=== PATIENT | female | born 1985 | race Caucasian/White ===

== ENCOUNTER 2018-03-20 09:57 | Emergency (ER) | payer SELFPAY ==
--- NOTE | 2018-03-20 09:57 | DT_ITS ---
This patient was seen during an EMR downtime March 13, 2018 - March 20, 2018. This patient may have a combination of paper and electronic documentation or all paper documentation. All documentation is viewable within the e-chart portion of [employer] for each patient visit.
[2018-03-20 09:58] VITALS: BP 151/78; PULSE 127; RESP 20; TEMP 37.2; O2SAT 96; BMI 47.0
--- NOTE | 2018-03-20 10:19 | CT_ITS ---
STUDY: CT ABDOMEN AND PELVIS WITH CONTRAST REASON FOR EXAM: Female, 32 years old. Abdominal pain. RADIATION DOSAGE (If Supplied By Facility): CTDIvol = ( 26.70 ) mGy, DLP = ( 1954.89 ) mGycm TECHNIQUE: Transaxial images were obtained from the dome of the diaphragm to the symphysis pubis without oral contrast. 100mL ml of Isovue 300 contrast was administered. Sagittal and coronal images were reconstructed. Individualized dose optimization techniques were used for this CT. COMPARISON: CT abdomen October 30, 2017; CT abdomen pelvis October 19, 2017. FINDINGS: Stable elevation of the right diaphragm. The visualized lung bases are unremarkable. The visualized portions of the heart are within normal limits. There is hepatomegaly, the right lobe measuring 25 cm in height. Liver density is difficult to accurately evaluate after IV contrast injection. The patent portal vein diameter is 17.5 mm.. There is non-visualization of the gallbladder, which may be secondary to either contraction or a prior cholecystectomy. The diameter of the common bile duct 7.5 mm. There is mild splenomegaly, measuring 15.2 x 15.3 x 7.95 cm. Normal pancreas. Normal bilateral adrenal glands. 13 mm rounded low-density at the lateral midpole right kidney consistent with a cortical cyst. A mildly exophytic 11 mm cortical cyst is seen at the lateral lower pole of the left kidney. No hydronephrosis. Normal visualized stomach. There is a suture line around the second portion of the duodenum, an additional suture lines are seen along small bowel loops in the anterior midabdomen and left lower quadrant. No suspicious small bowel dilatation. Normal colon. There is non-visualization of the appendix. Normal abdominal aorta. Normal inferior vena cava. There is a stable 10 x 6 x 1.75 cm left infrarenal retroperitoneal lymph node. No other demonstrated adenopathy, suggesting this is reactive. Normal urinary bladder. Normal size anteverted uterus, tilted to the left of midline. Metal clips adjacent to the bilateral corneal consistent with prior tubal ligation. The bilateral ovaries are unremarkable. There is a healed midline surgical scar of the anterior abdominal wall. There is a small fat-containing supraumbilical hernia to the left side of the midline containing fat. The ill-defined fluid collection seen previously in the subcutaneous tissues in the midline anterior abdominal wall has resolved with some residual stranding. There are stable mild multilevel degenerative changes of the visualized spine. CT/Abdomen/Pelvis W IV Cont ONLY IMPRESSION: 1. Interval clearing of fluid collection in the subcutaneous tissues of the anterior abdominal wall with some residual stranding. There is a healed midline surgical scar and a small, fat-containing supraumbilical hernia to left of midline. 2. Suture lines are seen around the second portion of the duodenum as well as along unremarkable small bowel loops in the anterior midabdomen and left lower quadrant. No sign of bowel obstruction. The appendix is not visualized. 3. The gallbladder is not visualized, and presumed to be surgically absent. 4. Prior bilateral tubal ligation again noted. 5. Hepatosplenomegaly. 6. Stable bilateral renal cortical cysts. No hydronephrosis. Electronically Signed: Gerardo White MD at 12:36 EDT , Service support ,
--- NOTE | 2018-03-20 10:22 | ED.DCSUM_ITS ---
- ER Visit Summary Date of Service: 03/20/18 Chief Complaint: Abdominal pain History of Present Illness: The patient is a 32 F with history of ventral hernia status post repair and revision surgeries presents for severe abdominal pain. Patient states she was moving homes last week and since then has had dull abdominal pain in the region of her repair. Overnight the pain became very sharp. Patient is not having any bowel movements or passing flatus. She has associated nausea and decreased appetite. Denies fever, urinary symptoms or other complaints. Physical Examination: Vital signs: afebrile, mildly hypertensive and significant tachycardia, no hypoxia on room air General: well nourished, well developed, sitting in bed and appears uncomfortable, tearful Skin: warm, dry, no rash, no pallor HEENT: normocephalic and atraumatic; PERRL, EOMI, moist mucous membranes Cardiovascular: Tachycardic rate and regular rhythm without murmurs, no peripheral edema, 2+ pulses all distal extremities Respiratory: No increased work of breathing, lungs are clear to auscultation bilaterally, no rales, rhonchi or wheezing Abdominal: Abdomen is soft, diffusely tender to light palpation with quiet bowel sounds, no guarding or rebound, no masses, exam limited secondary to body habitus MSK: Moves all extremities, no deformities, normal strength Neuro: Awake and alert, oriented ?4. No facial droop, sensation and motor function intact and symmetric Test Results: Abnormal Lab Results 03/20/18 03/20/18 03/20/18 10:35 10:35 10:35 WBC 6.4 RBC 4.64 Hgb 13.8 Hct 41.7 MCV 89.9 MCH 29.7 MCHC 33.1 RDW 12.8 RDW Differential 41.5 Plt Count 230 MPV 8.7 Immature Gran % (Auto) 0.300 Neut % (Auto) 66.2 Lymph % (Auto) 25.9 [place] % (Auto) 5.5 Eos % (Auto) 1.9 Baso % (Auto) 0.2 Absolute Neuts (auto) 4.3 Absolute Lymphs (auto) 1.66 Total Counted Not Reportable Sodium 140 Potassium 3.2 L Chloride 104 Carbon Dioxide 24.0 Anion Gap 12 BUN 8 Creatinine 0.58 Est GFR (MDRD) Af Amer 155 Est GFR (MDRD) Non-Af 128 BUN/Creatinine Ratio 13.9 Glucose 107 H Lactic Acid 3.9 H Calcium 8.6 Total Bilirubin 0.20 AST 18 ALT 26 Alkaline Phosphatase 54 Total Protein 7.0 Albumin 3.5 Globulin 3.5 Albumin/Globulin Ratio 1.0 Lipase 81 Serum , Qual 03/20/18 03/20/18 10:35 13:40 WBC RBC Hgb Hct MCV MCH MCHC RDW RDW Differential Plt Count MPV Immature Gran % (Auto) Neut % (Auto) Lymph % (Auto) [place] % (Auto) Eos % (Auto) Baso % (Auto) Absolute Neuts (auto) Absolute Lymphs (auto) Total Counted Sodium Potassium Chloride Carbon Dioxide Anion Gap BUN Creatinine Est GFR (MDRD) Af Amer Est GFR (MDRD) Non-Af BUN/Creatinine Ratio Glucose Lactic Acid 2.5 H Calcium Total Bilirubin AST ALT Alkaline Phosphatase Total Protein Albumin Globulin Albumin/Globulin Ratio Lipase Serum , Qual NEGATIVE Clinical Impression(s) from Imaging Studies Abdomen/Pelvis CT 03/20/18 10:19 IMPRESSION: 1. Interval clearing of fluid collection in the subcutaneous tissues of the anterior abdominal wall with some residual stranding. There is a healed midline surgical scar and a small, fat-containing supraumbilical hernia to left of midline. 2. Suture lines are seen around the second portion of the duodenum as well as along unremarkable small bowel loops in the anterior midabdomen and left lower quadrant. No sign of bowel obstruction. The appendix is not visualized. 3. The gallbladder is not visualized, and presumed to be surgically absent. 4. Prior bilateral tubal ligation again noted. 5. Hepatosplenomegaly. 6. Stable bilateral renal cortical cysts. No hydronephrosis. Electronically Signed: Gerardo White MD at 12:36 EDT , Service support , Emergency Department Course and Treatment: Patient received Phenergan and morphine for her abdominal complaints. She was given IV fluids. Labs were performed and were remarkable only for an elevated lactate 3.9. Patient was afebrile, and did not have any leukocytosis. CT of the abdomen and pelvis was performed to evaluate for bowel obstruction or recurrent hernia, and it showed no acute process to explain patient's severe symptoms. She received additional Reglan and Dilaudid, with minimal control in her pain. Patient was then given IV Haldol. After hydration, lactate was repeated and was 2.5. While workup was in progress prior to the repeat lactate results returning, patient stated that she needed to leave and was advised she would have to sign out AMA. She left prior to me being able to discuss the risks of leaving and prior to signing the form. Treatment Plan: [] Disposition: [] Impression: Abdominal pain, history of ventral hernia, left AMA This note was generated with [employer] dictation software. It may contain incorrect words, spelling, and punctuation that were not noted in review of the chart prior to signing ED Disposition - Plan for ED Patient: Disposition: Home or Assisted Living Chief Complaint: Abd Pain Referrals: Care Physician,No Primary [Primary Care Provider] -
[2018-03-20] MEDS: proMETHazine 25 MG/ML Syringe 12.5 MG IV (10:38)
[2018-03-20] MEDS: 0.9% Normal Saline 1,000 ML 1000 ML IV (10:38)
[2018-03-20] MEDS: Morphine 4 MG/ML Syringe IV (10:38)
[2018-03-20 10:48] LABS: Absolute Lymphocyte Count 1.66 X10^3/ul (0.83-4.51); Absolute Neutrophil Count 4.3 X10^3/uL (2.0-7.7); Basophil# 0.01 X10^3/uL; Basophil% 0.2 % (0-1); Eosinophil# 0.12 X10^3/uL; Eosinophils% 1.9 % (0-5); Hematocrit 41.7 % (37-47); Hemoglobin 13.8 g/dl (12.0-15.0); Lymphocyte # 1.66 X10^3/ul (4.0); Lymphocyte % 25.9 % (19-41); Mean Corp Hgb Conc 33.1 g/gl (32-36); Mean Corpuscular Hgb 29.7 pg (27.0-32.0); Mean Corpuscular Volume 89.9 fL (81-99); Mean Platelet Vol. 8.7 fl (6.2-12.0); Monocyte# 0.35 X10^3/uL; Monocyte% 5.5 % (0-10); Neutrophil # 4.26 X10^3/uL (2.7-7.7); Neutrophil % 66.2 % (47-70); POSITIVE COUNT NO; POSITIVE DIFFERENTIAL NO; POSITIVE MORPHOLOGY NO; Platelet Count 230 K/mm3 (150-450); RBC Distribution Width CV 12.8 % (11.6-14.6); RBC Distribution Width SD 41.5 fl (35.1-43.9); Red Blood Count 4.64 M/mm3 (4.2-5.4); White Blood Count 6.4 K/mm3 (4.4-11.0)
[2018-03-20 11:06] LABS: AST(SGOT) 18 U/L (15-37); Alanine Aminotransfer ALT/SGPT 26 U/L (13-56); Albumin, Serum 3.5 g/dL (3.2-5.0); Alkaline Phosphatase 54 U/L (45-117); Anion Gap 12 (5-15); BUN 8 mg/dL (7-18); BUN/Creat Ratio 13.9 RATIO (10-20); Calcium,Total 8.6 mg/dL (8.5-10.1); Chloride 104 mmol/L (98-107); Creatinine, Serum 0.58 mg/dL (0.55-1.02); EST Glomerular Filtration Rate 128 mL/min (>60); Est Glom Filt Rate - Afr Amer 155 mL/min (>60); Globulin 3.5 g/dL (2.2-4.2); Glucose 107 mg/dL (74-106); Lipase 81 U/L (73-393); Potassium 3.2 mmol/L (3.5-5.1); Sodium Level 140 mmol/L (136-145)
[2018-03-20 11:20] LABS: Pregnancy, Serum, hCG Quali. NEGATIVE Negative (0-9 Nonpreg)
[2018-03-20 11:27] LABS: Lactic Acid 3.9 mmol/L (0.4-2.0)
[2018-03-20] MEDS: HYDROmorphone 1 MG/ML Syringe IV (11:30)
[2018-03-20] MEDS: Metoclopramide 10 MG/2 ML Vial IV (11:30)
[2018-03-20 12:36] VITALS: BP 132/80; PULSE 90; RESP 18; O2SAT 97
[2018-03-20] MEDS: Piperacil/Tazobactam 3.375 GM/50 ML ML IV (12:36)
[2018-03-20] MEDS: 0.9% Normal Saline 1,000 ML 999 ML IV (13:40)
[2018-03-20] MEDS: Haloperidol Lactate 5 MG/ML Vial IV (13:40)
[2018-03-20 14:26] LABS: Lactic Acid 2.5 mmol/L (0.4-2.0)
[2018-03-20 14:43] LABS: Reflex Lactate? Y
[2018-03-20 17:50] LABS: Reflex Lactate? Y
== END 2018-03-20 14:24 | disposition home or self-care (01) ==
LOC: ED 10:54
PROVIDERS: Emergency Provider Emergency Medicine
DX: R10.9 Unspecified abdominal pain (principal); Z98.51 Tubal ligation status
CPT/HCPCS: 36415; 74177; 80053; 83605; 83690; 84703; 85025; 96361; 96365; 96374; 96375; 99283; J7030; Q9967; A4216

== ENCOUNTER 2018-06-22 11:09 | Emergency (ER) | payer MEDICAID, SELFPAY ==
[2018-06-22 11:09] VITALS: BP 141/71; PULSE 89; RESP 16; TEMP 36.8; O2SAT 96; BMI 50.1
[2018-06-22 11:22] VITALS: BP 126/67; PULSE 80; RESP 16; O2SAT 97
--- NOTE | 2018-06-22 11:34 | RAD_ITS ---
STUDY: X-RAY CHEST REASON FOR EXAM: Female, 32 years old. Syncope. TECHNIQUE: PA and lateral views of the chest. COMPARISON: Comparison is made with prior study dated September 15, 2014. FINDINGS: EKG electrodes are seen. Scattered calcified granulomas. No acute abnormality is seen. There is no demonstrated pleural abnormality. Normal size heart. Normal mediastinum and denisse. Normal visualized pulmonary arteries. Normal visualized aortic arch and descending thoracic aorta. Normal visualized thoracic spine. Normal visualized ribs, clavicles, and shoulders. There is no demonstrated abnormality of the visualized soft tissue structures of the upper abdomen. RAD/Chest PA and Lateral IMPRESSION: Normal x-ray examination of the chest. Electronically Signed: Sacha Roca MD at 12:56 EDT Tel [phone], Service support ,
--- NOTE | 2018-06-22 11:34 | EKG12_ITS ---
Test Reason : SYNCOPE Blood Pressure : / mmHG Vent. Rate : 079 BPM Atrial Rate : 079 BPM P-R Int : 150 ms QRS Dur : 086 ms QT Int : 378 ms P-R-T Axes : 253 065 031 degrees QTc Int : 433 ms Unusual P axis, possible ectopic atrial rhythm Abnormal ECG Confirmed by PATRICK DODD, JASKARAN ([id number]), subeditor KEZIA BARKER ([id number]) on 06/26/2018 3:02:02 PM Referred By: HAN Confirmed By:JASKARAN NGUYEN MD
--- NOTE | 2018-06-22 11:46 | ED.DCSUM_ITS ---
- ER Visit Summary Date of Service: 06/22/18 Chief Complaint: Syncope History of Present Illness: The patient is a 32 F who presents with a syncopal episode that occurred today. Patient states she was in the shower when she felt her heart racing and became dizzy. Patient states she passed out for approximately 3-4 minutes. Patient states that before she passed out she also felt some pain in her right lower thoracic area. Patient states she has been having some pain in her left lower first molar area for the past few days as well. Patient also is being treated for bilateral otitis externa. Patient states her right ear is still has some pain but her left ear has cleared up. Patient admits to some nausea and upper abdominal pain. Patient had a recent ventral herniorrhaphy approximately 2 weeks ago. Patient also complains of a headache. Physical Examination: Vital signs are stable. Patient is afebrile. Patient is in no acute distress. Oral mucosa is pink and moist. Tympanic membranes are clear bilaterally. The right external auditory canal is mildly edematous. There is some tenderness with manipulation of the right external ear. Oropharynx is clear. There is some mild tenderness over the left lower first molar. There is no gingival edema or abscess noted. Neck is supple. Trachea is midline. There is some tender anterior cervical lymphadenopathy. Heart was regular rate and rhythm. Lungs are clear and equal bilaterally. Abdomen is soft. There is some upper abdominal tenderness. There is no rebound or guarding noted. The herniorrhaphy incision is healing well. There is no erythema or signs of infection. Cranial nerves II through XII are intact. There are no focal motor or sensory deficits noted. The remaining physical exam is within normal limits. Test Results: EKG showed ectopic atrial rhythm with a rate of 79. There are no acute ST or T-wave changes. There are no other acute changes noted. CBC showed a mild leukocytosis of 11.7. Basic metabolic profile, troponin, and urinalysis were all within normal limits. Chest x-ray does not show any acute cardiopulmonary process. Orthostatic vital signs were normal. Emergency Department Course and Treatment: Patient was given IV fluids here. Patient was instructed to go home and rest. Patient was instructed to drink plenty of fluids. She was given a prescription for Pen-Vee K for possible dental infection. Patient was instructed to follow-up with her primary care physician in 7-10 days. Patient understood and was agreeable with the plan. All questions were answered. Disposition: Discharged home Impression: Syncope This note was generated with [employer] dictation software. It may contain incorrect words, spelling, and punctuation that were not noted in review of the chart prior to signing ED Disposition - Plan for ED Patient: Disposition: Home or Assisted Living Chief Complaint: Syncope Diagnosis: Syncope Instructions: ED Fainting Unkn Cause Prescriptions: Penicillin V Potassium 500 mg PO 4X/DAY #40 tab Referrals: Care Physician,No Primary [Primary Care Provider] -
[2018-06-22] MEDS: 0.9% Normal Saline 1,000 ML 1000 ML IV (12:04)
[2018-06-22 12:05] VITALS: BP 125/70; BP 140/74; PULSE 82; PULSE 84
[2018-06-22 12:18] LABS: Internal QC Validated? YES +Cl - CLEAR BKGD; Pregnancy, Urine Negative Negative
[2018-06-22 12:24] LABS: Absolute Lymphocyte Count 2.16 X10^3/ul (0.83-4.51); Absolute Neutrophil Count 8.3 X10^3/uL (2.0-7.7); Basophil# 0.03 X10^3/uL; Basophil% 0.3 % (0-1); Eosinophil# 0.44 X10^3/uL; Eosinophils% 3.8 % (0-5); Hematocrit 42.2 % (37-47); Hemoglobin 13.8 g/dl (12.0-15.0); Lymphocyte # 2.16 X10^3/ul (4.0); Lymphocyte % 18.4 % (19-41); Mean Corp Hgb Conc 32.7 g/gl (32-36); Mean Corpuscular Hgb 30.1 pg (27.0-32.0); Mean Corpuscular Volume 92.1 fL (81-99); Mean Platelet Vol. 9.4 fl (6.2-12.0); Monocyte# 0.62 X10^3/uL; Monocyte% 5.3 % (0-10); Neutrophil # 8.33 X10^3/uL (2.7-7.7); Neutrophil % 71.1 % (47-70); Platelet Count 278 K/mm3 (150-450); RBC Distribution Width CV 13.1 % (11.6-14.6); RBC Distribution Width SD 43.7 fl (35.1-43.9); Red Blood Count 4.58 M/mm3 (4.2-5.4); White Blood Count 11.7 K/mm3 (4.4-11.0)
[2018-06-22 12:26] LABS: Color, Urine Yellow (Yellow); Glucose, Dipstick Normal (Normal); Ketone-Dipstick Negative (Negative); Leukocyte Esterase-Dipstick 25 /ul (Negative); Nitrite-Dipstick Negative (Negative); Occult Blood-Urine 250 /ul (Negative); Protein-Dipstick 30 mg/dl (Negative); Specific Gravity, Urine 1.025 (1.002-1.030); Urine Bilirubin Dipstick Negative (Negative); Urine Clarity Sl. Cloudy (Clear); Urine Urobilinogen Normal (Normal)
[2018-06-22 12:31] LABS: POSITIVE COUNT NO; POSITIVE DIFFERENTIAL NO; POSITIVE MORPHOLOGY NO
[2018-06-22 12:32] LABS: ALB/GLOB Ratio 0.9 RATIO (0.9-2.4); AST(SGOT) 11 U/L (15-37); Alanine Aminotransfer ALT/SGPT 25 U/L (13-56); Albumin, Serum 3.4 g/dL (3.2-5.0); Alkaline Phosphatase 63 U/L (45-117); Anion Gap 9 (5-15); BUN 12 mg/dL (7-18); BUN/Creat Ratio 19.4 RATIO (10-20); Calcium,Total 8.7 mg/dL (8.5-10.1); Chloride 109 mmol/L (98-107); Creatinine, Serum 0.62 mg/dL (0.55-1.02); EST Glomerular Filtration Rate 118 mL/min (>60); Est Glom Filt Rate - Afr Amer 143 mL/min (>60); Estimated Creatinine Clearance 117.22 ml/min; Globulin 3.6 g/dL (2.2-4.2); Glucose 95 mg/dL (74-106); Lipase 113 U/L (73-393); Potassium 4.3 mmol/L (3.5-5.1); Sodium Level 141 mmol/L (136-145)
[2018-06-22 12:50] LABS: Bacteria RARE /hpf (None Seen); Red Blood Cells-Urine 0-5 SEEN /hpf (0-5); Squamous Epithelial Cells - UA 5-10 SEEN /hpf (5-10); White Blood Cells 5-10 SEEN /hpf (0-5)
[2018-06-22 12:51] LABS: Mucous, Urine 1+ /hpf (<or=2+)
[2018-06-22 13:22] VITALS: BP 153/108; PULSE 80; RESP 16; O2SAT 99
[2018-06-22 13:42] VITALS: BP 134/79; PULSE 75; RESP 14; O2SAT 99
== END 2018-06-22 13:48 | disposition home or self-care (01) ==
PROVIDERS: Emergency Provider Emergency Medicine
DX: R55 Syncope and collapse (principal); R10.10 Upper abdominal pain, unspecified; K08.89 Other specified disorders of teeth and supporting structures; M54.9 Dorsalgia, unspecified; H60.93 Unspecified otitis externa, bilateral; Z90.49 Acquired absence of other specified parts of digestive tract; Z87.891 Personal history of nicotine dependence
CPT/HCPCS: 71046; 80053; 81001; 81025; 83690; 85025; 93005; 96360; 99285; J7030

== ENCOUNTER 2018-07-06 14:47 | Emergency (ER) | payer MEDICAID, SELFPAY ==
[2018-07-06 14:48] VITALS: BP 190/107; PULSE 132; RESP 20; TEMP 36.9; O2SAT 93; BMI 51.3
--- NOTE | 2018-07-06 15:13 | CT_ITS ---
STUDY: CT ABDOMEN AND PELVIS WITH CONTRAST REASON FOR EXAM: Female, 33 years old. Abdominal pain. History of GERD RADIATION DOSAGE (If Supplied By Facility): CTDIvol = ( 17.07 ) mGy, DLP = ( 1388.35 ) mGycm TECHNIQUE: Transaxial images were obtained from the dome of the diaphragm to the symphysis pubis without oral contrast. 100 ml of Isovue 300 contrast was administered. Sagittal and coronal images were reconstructed. Individualized dose optimization techniques were used for this CT. COMPARISON: None. FINDINGS: The visualized lung bases are unremarkable. The visualized portions of the heart are within normal limits. Normal liver. There are surgical clips in the gallbladder fossa consistent with a prior cholecystectomy. Normal spleen. Normal pancreas. Normal bilateral adrenal glands. Small midpole renal cyst measuring 1.2 cm. Otherwise, normal right kidney. Normal left kidney. Normal visualized stomach. Chain sutures noted in the mid abdominal region, likely within loops of small bowel. Otherwise, small bowel is within normal limits. Normal colon. There is non-visualization of the appendix. Normal abdominal aorta. Normal inferior vena cava. Normal retroperitoneum. Normal urinary bladder. Normal visualized uterus. Prior ventral wall abdominal hernia repair with small recurrent fat-containing hernia. Normal osseous structures. CT/Abdomen/Pelvis WITH Contrast IMPRESSION: 1. No acute findings 2. Status post cholecystectomy, partial small bowel resection as well as appendectomy Electronically Signed: Nick Armendariz DO at 17:05 EDT Tel , Service support ,
[2018-07-06 15:27] VITALS: BP 170/95; PULSE 113; RESP 18; O2SAT 95
[2018-07-06] MEDS: proMETHazine 25 MG/ML Syringe 12.5 MG IV ×2 (15:35→17:48)
[2018-07-06] MEDS: HYDROmorphone 1 MG/ML Syringe IV ×3 (15:35→19:59)
[2018-07-06] MEDS: 0.9% Normal Saline 1,000 ML 125 ML IV (15:35)
[2018-07-06 15:40] LABS: Absolute Lymphocyte Count 2.81 X10^3/ul (0.83-4.51); Absolute Neutrophil Count 5.4 X10^3/uL (2.0-7.7); Basophil# 0.02 X10^3/uL; Basophil% 0.2 % (0-1); Eosinophils% 3.3 % (0-5); Hematocrit 43.5 % (37-47); Hemoglobin 14.6 g/dl (12.0-15.0); Lymphocyte # 2.81 X10^3/ul (4.0); Lymphocyte % 30.8 % (19-41); Mean Corp Hgb Conc 33.6 g/gl (32-36); Mean Corpuscular Hgb 30.8 pg (27.0-32.0); Mean Corpuscular Volume 91.8 fL (81-99); Mean Platelet Vol. 9.4 fl (6.2-12.0); Monocyte# 0.53 X10^3/uL; Monocyte% 5.8 % (0-10); Neutrophil % 59.1 % (47-70); Platelet Count 258 K/mm3 (150-450); RBC Distribution Width CV 12.7 % (11.6-14.6); RBC Distribution Width SD 42.1 fl (35.1-43.9); Red Blood Count 4.74 M/mm3 (4.2-5.4); White Blood Count 9.1 K/mm3 (4.4-11.0)
[2018-07-06 15:50] LABS: Anion Gap 15 (5-15); BUN 10 mg/dL (7-18); BUN/Creat Ratio 11.7 RATIO (10-20); Calcium,Total 9.1 mg/dL (8.5-10.1); Chloride 106 mmol/L (98-107); Creatinine, Serum 0.86 mg/dL (0.55-1.02); EST Glomerular Filtration Rate 81 mL/min (>60); Est Glom Filt Rate - Afr Amer 98 mL/min (>60); Estimated Creatinine Clearance 83.72 ml/min; Glucose 122 mg/dL (74-106); POSITIVE COUNT NO; POSITIVE DIFFERENTIAL NO; POSITIVE MORPHOLOGY NO; Potassium 3.3 mmol/L (3.5-5.1); Sodium Level 142 mmol/L (136-145)
[2018-07-06 15:59] LABS: Pregnancy, Serum, hCG Quali. NEGATIVE Negative (0-9 Nonpreg)
[2018-07-06 17:04] LABS: Lactic Acid 3.2 mmol/L (0.4-2.0)
[2018-07-06 17:21] VITALS: BP 165/90; PULSE 95; RESP 14; O2SAT 98
--- NOTE | 2018-07-06 17:56 | NURSING ---
CALLED JENNIFER JAMES.
--- NOTE | 2018-07-06 18:14 | NURSING ---
[facility] ROOM [id number] REPORT NUMBER [id number] FLORES
--- NOTE | 2018-07-06 18:15 | ED.VISSUMM ---
- ER Visit Summary Date of Service: 07/06/18 Chief Complaint: Abdominal pain] History of Present Illness: The patient is a 33 F [presents with abdominal pain that started approximately 11 AM. Patient states that she stood up and twisted and felt a sudden tearing sensation in her right lower abdomen. Patient's been vomiting and complains of dizziness. Patient is concerned because she has had several ventral hernia repairs the last of which was June 09 at [facility]. Patient denies any diarrhea. She denies any fevers. Patient denies urinary symptoms. Patient has history of diabetes, bipolar disorder, anxiety, and GERD.] Physical Examination: [HEENT-PERRLA, EOMI. Cranial nerves II through XII grossly intact. TMs clear. Mucous membranes moist. No adenopathy. Cardiovascular-regular rate and rhythm without murmur or ectopy Lungs-clear to auscultation, chest wall stable without crepitus or subcu emphysema Abdomen-normoactive bowel sounds, soft. Patient does have tenderness palpation just to the right of the umbilicus. Patient does have some subtle fullness in the area is very tender to palpation. Extremities-intact ?4, normal range of motion, normal pulses, atraumatic] Test Results: [CBC with differential obtained was normal. Chemistries unremarkable. HCG was negative. Lactate was elevated at 3.2. CT scan of the abdomen pelvis showed prior ventral wall abdominal hernia repair with small recurrent fat-containing hernia.] Emergency Department Course and Treatment: [Patient was medicated with Dilaudid and Phenergan. Patient had to be remedicated with Dilaudid secondary to continued pain.] Treatment Plan: [I discussed case with Dr. Will Mendez who was covering for Dr. Marcial whom the patient has seen before. Dr. Mendez asked that we transfer patient to [facility] where she had her latest surgery. I discussed case with [facility] and Dr. Dahl accepted transfer of the patient.] Disposition: [Transfer] Impression: [Abdominal pain with recurrent ventral hernia] This note was generated with [employer] dictation software. It may contain incorrect words, spelling, and punctuation that were not noted in review of the chart prior to signing ED Disposition - Plan for ED Patient: Chief Complaint: Abd Pain Referrals: Care Physician,No Primary [Primary Care Provider] -
--- NOTE | 2018-07-06 18:19 | ED.DCSUM_ITS ---
- ER Visit Summary Date of Service: 07/06/18 Chief Complaint: Abdominal pain] History of Present Illness: The patient is a 33 F [presents with abdominal pain that started approximately 11 AM. Patient states that she stood up and twisted and felt a sudden tearing sensation in her right lower abdomen. Patient's been vomiting and complains of dizziness. Patient is concerned because she has had several ventral hernia repairs the last of which was June 09 at [facility]. Patient denies any diarrhea. She denies any fevers. Patient denies urinary symptoms. Patient has history of diabetes, bipolar disorder, anxiety, and GERD.] Physical Examination: [HEENT-PERRLA, EOMI. Cranial nerves II through XII grossly intact. TMs clear. Mucous membranes moist. No adenopathy. Cardiovascular-regular rate and rhythm without murmur or ectopy Lungs-clear to auscultation, chest wall stable without crepitus or subcu emphysema Abdomen-normoactive bowel sounds, soft. Patient does have tenderness palpation just to the right of the umbilicus. Patient does have some subtle fullness in the area is very tender to palpation. Extremities-intact ?4, normal range of motion, normal pulses, atraumatic] Test Results: [CBC with differential obtained was normal. Chemistries unremarkable. HCG was negative. Lactate was elevated at 3.2. CT scan of the abdomen pelvis showed prior ventral wall abdominal hernia repair with small recurrent fat-containing hernia.] Emergency Department Course and Treatment: [Patient was medicated with Dilaudid and Phenergan. Patient had to be remedicated with Dilaudid secondary to con tinued pain.] Treatment Plan: [I discussed case with Dr. Will Mendez who was covering for Dr. Marcial whom the patient has seen before. Dr. Mendez asked that we transfer patient to [facility] where she had her latest surgery. I discussed case with [facility] and Dr. Dahl accepted transfer of the patient.] Disposition: [Transfer] Impression: [Abdominal pain with recurrent ventral hernia] This note was generated with [employer] dictation software. It may contain incorrect words, spelling, and punctuation that were not noted in review of the chart prior to signing ED Disposition - Plan for ED Patient: Chief Complaint: Abd Pain Referrals: Care Physician,No Primary [Primary Care Provider] -
--- NOTE | 2018-07-06 18:29 | ED.RN ---
REPORT CALLED TO MARIE HEATH AT [place] [id number].
--- NOTE | 2018-07-06 18:41 | NURSING ---
[facility] COMING WITHIN AN HOUR
[2018-07-06 19:07] VITALS: BP 126/79; PULSE 100; PULSE 106; RESP 16; RESP 18; O2SAT 95
== END 2018-07-06 20:04 | disposition short-term general hospital (02) ==
PROVIDERS: Emergency Provider Emergency Medicine
DX: K43.2 Incisional hernia without obstruction or gangrene (principal); E11.9 Type 2 diabetes mellitus without complications; K21.9 Gastro-esophageal reflux disease without esophagitis
CPT/HCPCS: 74177; 80048; 83605; 84703; 85025; 96361; 96374; 96375; 96376; 99285; J7030; Q9967; A4216

== ENCOUNTER 2018-07-11 19:41 | Observation (INO) | payer MEDICAID, SELFPAY ==
[2018-07-11 19:42] VITALS: BP 158/92; PULSE 147; RESP 24; TEMP 36.9; O2SAT 98; BMI 47.5
--- NOTE | 2018-07-11 20:20 | ED.VISSUMM ---
- ER Visit Summary Date of Service: 07/11/18 Chief Complaint: Abdominal pain with nausea and vomiting History of Present Illness: The patient is a 33 F prior abdominal hernia repairs x3. Started having pain last , July 06. Was seen at [facility] ER. The general surgeon relations director requested the patient be transferred. She was seen and treated at [facility] for several days. They did not feel she needed emergent surgery. She was discharged home. Patient states she is having more pain and nausea and vomiting now. Denies fever. She is having bowel movements. Physical Examination: Young female no acute distress vital signs are stable. She is tachycardic. H EENT exam unremarkable. Neck nontender. Lungs clear to auscultation bilaterally. Heart tachycardic no murmur. Abdomen obese but soft. She does have what appears to be a periumbilical hernia to the right of her bellybutton. I am unable to reduce it. There is tenderness to this area. I do not feel otherwise that her abdomen has any peritoneal signs. This is consistent with an incarcerated hernia. She is moving all 4 extremities. Neurologically she is awake and alert. Test Results: CBC White count 9. Hemoglobin 13. Electrolytes show potassium of 3.0. Normal gap. Normal creatinine. CT abdomen and pelvis is obtained and requested by the general surgeon shows dilated loops of bowel with air-fluid levels consistent with either an ileus or an early partial small bowel obstruction. And several periumbilical hernias with fat. Emergency Department Course and Treatment: Treated with IV morphine and Phenergan. I have the general surgeon relations director Dr. Trudy Miles. With most likely surgery tomorrow. Treatment Plan: [] Disposition: [] Impression: Acute abdominal pain with nausea vomiting Rule out incarcerated periumbilical hernia This note was generated with [employer] dictation software. It may contain incorrect words, spelling, and punctuation that were not noted in review of the chart prior to signing ED Disposition - Plan for ED Patient: Chief Complaint: Abd Pain Referrals: Care Physician,No Primary [Primary Care Provider] -
--- NOTE | 2018-07-11 20:23 | ED.DCSUM_ITS ---
- ER Visit Summary Date of Service: 07/11/18 Chief Complaint: Abdominal pain with nausea and vomiting History of Present Illness: The patient is a 33 F prior abdominal hernia repairs x3. Started having pain last , July 06. Was seen at [facility] ER. The general surgeon account contact associate requested the patient be transferred. She was seen and treated at [facility] for several days. They did not feel she needed emergent surgery. She was discharged home. Patient states she is having more pain and nausea and vomiting now. Denies fever. She is having bowel movements. Physical Examination: Young female no acute distress vital signs are stable. She is tachycardic. H EENT exam unremarkable. Neck nontender. Lungs clear to auscultation bilaterally. Heart tachycardic no murmur. Abdomen obese but soft. She does have what appears to be a periumbilical hernia to the right of her bellybutton. I am unable to reduce it. There is tenderness to this area. I do not feel otherwise that her abdomen has any peritoneal signs. This is consistent with an incarcerated hernia. She is moving all 4 extremities. Neurologically she is awake and alert. Test Results: CBC White count 9. Hemoglobin 13. Electrolytes show potassium of 3.0. Normal gap. Normal creatinine. CT abdomen and pelvis is obtained and requested by the general surgeon shows dilated loops of bowel with air-fluid levels consistent with either an ileus or an early partial small bowel obstruction. And several periumbilical hernias with fat. Emergency Department Course and Treatment: Treated with IV morphine and Phenergan. I have the general surgeon account contact associate Dr. Trudy Miles. With most likely surgery tomorrow. Treatment Plan: [] Disposition: [] Impression: Acute abdominal pain with nausea vomiting Rule out incarcerated periumbilical hernia This note was generated with [email or web address] dictation software. It may contain incorrect words, spelling, and punctuation that were not noted in review of the chart prior to signing ED Disposition - Plan for ED Patient: Chief Complaint: Abd Pain Referrals: Care Physician,No Primary [Primary Care Provider] -
[2018-07-11] MEDS: proMETHazine 25 MG/ML Syringe 12.5 MG IV ×2 (20:29→21:31)
[2018-07-11] MEDS: morphine 8 MG/ML Syringe 6 MG IV ×2 (20:29→22:41)
[2018-07-11 20:48] LABS: Absolute Lymphocyte Count 2.23 X10^3/ul (0.83-4.51); Absolute Neutrophil Count 6.5 X10^3/uL (2.0-7.7); Basophil# 0.01 X10^3/uL; Basophil% 0.1 % (0-1); Eosinophil# 0.22 X10^3/uL; Eosinophils% 2.3 % (0-5); Hematocrit 41.8 % (37-47); Hemoglobin 13.8 g/dl (12.0-15.0); Lymphocyte # 2.23 X10^3/ul (4.0); Lymphocyte % 23.1 % (19-41); Mean Corpuscular Hgb 30.3 pg (27.0-32.0); Mean Corpuscular Volume 91.9 fL (81-99); Mean Platelet Vol. 9.2 fl (6.2-12.0); Monocyte# 0.63 X10^3/uL; Monocyte% 6.5 % (0-10); Neutrophil # 6.53 X10^3/uL (2.7-7.7); Neutrophil % 67.5 % (47-70); Platelet Count 248 K/mm3 (150-450); RBC Distribution Width CV 12.9 % (11.6-14.6); RBC Distribution Width SD 42.9 fl (35.1-43.9); Red Blood Count 4.55 M/mm3 (4.2-5.4); White Blood Count 9.7 K/mm3 (4.4-11.0)
--- NOTE | 2018-07-11 20:52 | CT_ITS ---
STUDY: CT ABDOMEN AND PELVIS WITH CONTRAST REASON FOR EXAM: Female, 33 years old. Pain. RADIATION DOSAGE (If Supplied By Facility): CTDIvol = ( 18.74 ) mGy, DLP = ( 1426.28 ) mGycm TECHNIQUE: Transaxial images were obtained from the dome of the diaphragm to the symphysis pubis without oral contrast. 100 ml of Isovue 300 contrast was administered. Sagittal and coronal images were reconstructed. Individualized dose optimization techniques were used for this CT. COMPARISON: July 06, 2018. FINDINGS: The visualized lung bases are unremarkable. The visualized portions of the heart are within normal limits. There is hepatomegaly with diffuse hepatic enlargement. There is non-visualization of the gallbladder, which may be secondary to either contraction or a prior cholecystectomy. There is mild splenomegaly. Normal pancreas. Normal bilateral adrenal glands. Is 1.0 cm cyst of the right kidney. Normal left kidney. Normal visualized stomach. Postoperative changes involving loops of small intestine. There is focal distention of loops in the right upper quadrant with air and fluid. Normal colon. There is non-visualization of the appendix. Normal abdominal aorta. Normal inferior vena cava. Normal retroperitoneum. Normal urinary bladder. Normal visualized uterus. There are tubal ligation clips. Postoperative changes of the abdominal wall. There are umbilical and paraumbilical hernias containing fat. Mild degenerative changes of the spine. CT/Abdomen/Pelvis W IV Cont ONLY IMPRESSION: Hepatosplenomegaly. Postoperative changes. Distention of small bowel loops in the right upper quadrant with partial obstruction versus ileus. Electronically Signed: Mehrdad Sher MD at 21:48 EDT , Service support ,
[2018-07-11 20:53] LABS: Anion Gap 11 (5-15); BUN 7 mg/dL (7-18); BUN/Creat Ratio 9.1 RATIO (10-20); Calcium,Total 8.9 mg/dL (8.5-10.1); Chloride 106 mmol/L (98-107); Creatinine, Serum 0.77 mg/dL (0.55-1.02); EST Glomerular Filtration Rate 91 mL/min (>60); Est Glom Filt Rate - Afr Amer 111 mL/min (>60); Estimated Creatinine Clearance 93.51 ml/min; Glucose 175 mg/dL (74-106); POSITIVE COUNT NO; POSITIVE DIFFERENTIAL NO; POSITIVE MORPHOLOGY NO; Sodium Level 139 mmol/L (136-145)
[2018-07-11 20:54] VITALS: RESP 16
[2018-07-11] MEDS: 0.9% Normal Saline 1,000 ML 999 ML IV (21:00)
[2018-07-11 21:35] VITALS: BP 133/68; PULSE 106; RESP 18; O2SAT 93
--- NOTE | 2018-07-11 22:09 | HP.PCM_ITS ---
History of Present Illness Date of Admission: 07/11/18 The patient is a 33 year old F presented to the ER due to abdominal pain to the right of the umbilicus. Patient states that pain started to worsen again this morning at 3 AM. She rates it at 9/10 currently. Patient also came to the ER on last , 07/06/18 and was transferred to [place] as she had her last ventral recurrent hernia repair there on June [address] Dahl. Patient states she stayed at [place] until Tuesday night and she was referred to hernia specialist; however she does not have insurance and could not afford the co-pay. Patient did have nausea and vomiting today as well. She was unable to keep the oxycodone she had received from [place] down due to the nausea and vomiting. Patient has past medical history for some type of bile reflux surgery done by Dr. Rehman at [facility]. Since then patient has had 3 emergency recurrent hernia surgeries for her ventral hernias at the site of her upper midline incision. She is unsure if the first person use mesh or not but the last [address] Marcial, no mesh, and then Dr. Dahl, pt thinks no mesh. Patient states that she does not have pain at her previous recurrent hernia sites only to the right of her umbilicus. Patient denies passing flatus but did have a small bowel movement yesterday. However she states she has not been eating much at the hospital or after discharge from [place]. Past Medical History Past Medical History (Chronic Problems): Chronic Problems History of anxiety disorder (Chronic) GERD (gastroesophageal reflux disease) (Chronic) Partial small bowel obstruction (Chronic) Medical History: Medical History History of anxiety disorder (Chronic) Z86.59 GERD (gastroesophageal reflux disease) (Chronic) K21.9 Partial small bowel obstruction (Chronic) Vomiting (Acute) R11.10 Allergies ketorolac tromethamine [From Toradol] Allergy (Verified 06/22/18 11:32) Shortness of breath ondansetron HCl [From Zofran] Allergy (Verified 06/22/18 11:32) Shortness of breath Home Medications: Ambulatory Orders Medication Instructions Recorded Mv-Min/Iron/Folic/Calcium/Vitk 1 ea PO DAILY 10/19/17 [Women's Daily Formula Tablet] Melatonin 3 mg PO QHS 03/20/18 Oxycodone HCl/Acetaminophen 1 tab PO Q4H PRN PRN 07/11/18 [Percocet 5-325] proMETHazine tablet [Phenergan 25 mg PO Q6H PRN PRN 07/11/18 tablet] Surgical History: Surgical History (Last Updated 10/25/17 @ 14:01 by Radha Del Rosario) Recurrent ventral hernia with incarceration (Acute) K43.0 Surgical History: appendectomy, cholecystectomy, - - 3 sections, some type of bilateral reflux surgery dealing with the small bowel, 3 recurrent ventral hernia repairs about 10 cm above the umbilicus-last one was done June 09, 2018. [employer] History: No pertinent [employer] history Smoking Status: Former smoker - *Family History Maternal History Items: No pertinent history Paternal History Items: No pertinent history Review of Systems Constitutional: Reports: Anorexia VTE Information - Inpt Only VTE Present on Admission: Yes VTE Mechan Device Prophylaxis: SCD's VTE Pharm Prophylaxis ordered?: No Reason prophylaxis not ordered:: Medical Contraindication - Anticipate surgery tomorrow - Physical Exam General: Alert, Oriented x3, Cooperative Lungs: Normal air movement Cardiovascular: Regular rate Abdomen: Soft, Non-Distended, Obese, Tender - Tender to the right of the umbilicus positive incarcerated hernia about 3 x 4 cm of tissue herniated on exam consistent with CT., Hernia - Incarcerated incisional hernia, per CT only containing fat Vital Signs Temp Pulse Resp BP Pulse Ox 98.4 F 106 H 18 133/68 H 93 07/11/18 19:42 07/11/18 21:35 07/11/18 21:35 07/11/18 21:35 07/11/18 21:35 Oxygen Delivery Method Room Air Weight: 286 lb Body Mass Index (BMI) 47.5 Finger Stick Blood Glucose 109 Laboratory Tests Past 24 Hrs 07/11/18 07/11/18 20:15 20:15 WBC 9.7 RBC 4.55 Hgb 13.8 Hct 41.8 MCV 91.9 MCH 30.3 MCHC 33.0 RDW 12.9 RDW Differential 42.9 Plt Count 248 MPV 9.2 Immature Gran % (Auto) 0.500 Neut % (Auto) 67.5 Lymph % (Auto) 23.1 Hill % (Auto) 6.5 Eos % (Auto) 2.3 Baso % (Auto) 0.1 Absolute Neuts (auto) 6.5 Absolute Lymphs (auto) 2.23 Total Counted Not Reportable Sodium 139 Potassium 3.0 L Chloride 106 Carbon Dioxide 22.0 Anion Gap 11 BUN 7 Creatinine 0.77 Estim Creat Clear Calc 93.51 Est GFR (MDRD) Af Amer 111 Est GFR (MDRD) Non-Af 91 BUN/Creatinine Ratio 9.1 L Glucose 175 H Calcium 8.9 Assessment/Plan All Active Problems (Last Updated 10/25/17 @ 14:01 by aRdha Del Rosario) Vomiting (Acute) Recurrent ventral hernia with incarceration (Acute) 33-year-old female with an incarcerated incisional hernia, CT shows fat in the hernia. 1. N.p.o./IV fluids, pain control, anti-emetics. We will plan for surgery tomorrow for open incarcerated incisional hernia repair, possible mesh. Discussed the procedures including risk including but not limited to bleeding, infection, injury to another organ i.e. small bowel, recurrent hernia, and anesthesia. Also discussed patient that in the future she may need to see a hernia specialist for her epigastric hernia site especially if no mesh was placed she has had 3 recurrent hernias at that site. Patient also states she has been intentionally trying to lose weight with the keto diet has lost about 25 pounds. Rosetta Miles M.D. Pager: [phone] [facility] [place] [address] [place] [address], [facility], [address] [place] [address] Office: [phone]
[2018-07-11 22:56] VITALS: BMI 51.1
[2018-07-11] MEDS: Lactated Ringers 1,000 ML 999 ML IV (22:58)
[2018-07-11 23:05] VITALS: BP 125/76; PULSE 106; RESP 18; TEMP 36.4; O2SAT 97
[2018-07-12] VITALS (15 sets, daily range): BP systolic 115–141; BP diastolic 68–92; PULSE 78–99; RESP 16–20; TEMP 36.4–37.1; O2SAT 92–99; BMI 51.1
[2018-07-12] MEDS: HYDROmorphone 0.5 MG/0.5 ML SYRINGE IV ×7 (00:59→19:08)
[2018-07-12] MEDS: 0.9% NaCl Peripheral Flush Adult/Peds IV ×4 (01:00→05:41)
[2018-07-12 03:22] LABS: Internal QC Validated? YES +Cl - CLEAR BKGD; Pregnancy, Urine Negative Negative
[2018-07-12] MEDS: proMETHazine 25 MG/ML Syringe 12.5 MG IV ×2 (04:26→15:04)
--- NOTE | 2018-07-12 05:55 | EKG12_ITS ---
Test Reason : MORNING EKG Blood Pressure : / mmHG Vent. Rate : 080 BPM Atrial Rate : 080 BPM P-R Int : 154 ms QRS Dur : 096 ms QT Int : 408 ms P-R-T Axes : 047 055 013 degrees QTc Int : 470 ms Normal sinus rhythm Confirmed by VIIN DODD, KATALINA ([id number]), book or script editor KEZIA BARKER ([id number]) on 07/20/2018 2:32:14 PM Referred By: JUAN Confirmed By:KATALINA MARTINI MD
[2018-07-12 06:45] LABS: Anion Gap 9 (5-15); BUN 5 mg/dL (7-18); BUN/Creat Ratio 9.3 RATIO (10-20); Calcium,Total 8.3 mg/dL (8.5-10.1); Chloride 107 mmol/L (98-107); Creatinine, Serum 0.54 mg/dL (0.55-1.02); EST Glomerular Filtration Rate 139 mL/min (>60); Est Glom Filt Rate - Afr Amer 168 mL/min (>60); Estimated Creatinine Clearance 133.34 ml/min; Glucose 87 mg/dL (74-106); Potassium 4.3 mmol/L (3.5-5.1); Sodium Level 141 mmol/L (136-145)
--- NOTE | 2018-07-12 10:32 | NURSING ---
report called to Sh[facility] in [facility]. they are aware that pt does not have IV access at this time and reports being a hard stick. [facility] is agreeable to starting IV when she gets there.
[2018-07-12] MEDS: Cefazolin 2 GM in 0.9% Normal Saline 100 ML IV (11:34)
--- NOTE | 2018-07-12 12:36 | PCM.OPRPT ---
Report of Operation Date of Procedure: 07/12/18 Pre-Operative Diagnosis: Incarcerated incisional hernia Post-Operative Diagnosis: Same Surgery/Procedure Performed:: Incarcerated incisional hernia repair with mesh federal mediator: Paulina Galeana federal mediator: Keerthi Avalos Type of Anesthesia:: General Anesthesiologist: Tim Rodarte Special Medications: Ancef 2 g IV x1 Specimen's removed: None Estimated Blood Loss (mL): <10 cc Fluids Replaced: 800 cc Description of Procedure: Patient was brought into the room placed supine on the operating table. Correct patient, procedure, site, positioning, special, was verified prior to procedure. General anesthesia was induced. The abdomen was prepped draped in usual sterile fashion. Her previous midline incision near to the right of her umbilicus was re-incised with a 15 blade scalpel. This was deepened with electrocautery. Once the fascia was reached the incarcerated hernia fat was freed from the fascia. The hernia that was unable to be reduced the fascia was incised to allow for the abdominal fat to return to the abdomen. The fascia around the hernia defect was cleared and the hernia defect measured 2 cm x 1.[address] hernia patch medium nightmute (6.4 cm) was placed, which also covered the umbilical hernia area that was reduced through this incisional hernia defect. The ventralex mesh was secured with 0 Nurolon sutures at the tails with horizontal mattress sutures as well as superiorly and inferiorly and then the fascia was brought together with an 0 Nurolon [id number] suture. The wound was irrigated with saline. Hemostasis was assured. The incision was closed with 3-0 Vicryl subdermal interrupted sutures and the skin was closed with interrupted 4-0 Monocryl sutures. Steri-Strips and OpSite were placed over the incision. Patient was extubated Patient tolerated procedure well and was taken to the postanesthesia care unit in stable condition. - Complications none
[2018-07-12] MEDS: Bupivacaine Mpf 0.5% 30 ML VIAL (12:41)
--- NOTE | 2018-07-12 12:43 | OP.PCM_ITS ---
Report of Operation Date of Procedure: 07/12/18 Pre-Operative Diagnosis: Incarcerated incisional hernia Post-Operative Diagnosis: Same Surgery/Procedure Performed:: Incarcerated incisional hernia repair with mesh road worker: Paulina Galeana road worker: Keerthi Avalos Type of Anesthesia:: General Anesthesiologist: Tim Rodarte Special Medications: Ancef 2 g IV x1 Specimen's removed: None Estimated Blood Loss (mL): <10 cc Fluids Replaced: 800 cc Description of Procedure: Patient was brought into the room placed supine on the operating table. Correct patient, procedure, site, positioning, special, was verified prior to procedure. General anesthesia was induced. The abdomen was prepped draped in usual sterile fashion. Her previous midline incision near to the right of her umbilicus was re-incised with a 15 blade scalpel. This was deepened with electrocautery. Once the fascia was reached the incarcerated hernia fat was freed from the fascia. The hernia that was unable to be reduced the fascia was incised to allow for the abdominal fat to return to the abdomen. The fascia around the hernia defect was cleared and the hernia defect measured 2 cm x 1.[address] hernia patch medium yurok (6.4 cm) was placed, which also covered the umbilical hernia area that was reduced through this incisional hernia defect. The ventralex mesh was secured with 0 Nurolon sutures at the tails with horizontal mattress sutures as well as superiorly and inferiorly and then the fascia was brought together with an 0 Nurolon [id number] suture. The wound was irrigated with saline. Hemostasis was assured. The incision was closed with 3-0 Vicryl subdermal interrupted sutures and the skin was closed with interrupted 4-0 Monocryl sutures. Steri-Strips and OpSite were placed over the incision. Patient was extubated Patient tolerated procedure well and was taken to the postanesthesia care unit in stable condition. - Complications none
--- NOTE | 2018-07-12 12:45 | PCM.DC.HER ---
Discharge Diet: Light diet - advance as tolerated Discharge Activity: May not drive while taking narcotic pain medications. May shower in (days): 1 Lifting Restrictions: No lifting greater than 20 pounds for 4 weeks Call your doctor if your incision/area has: Continuous Slow Oozing, Sudden Increased Bleeding, Increased Pain/ Swelling, Increased Redness, Foul Smelling Discharge, Swelling at the incision site Call your doctor if you observe: Fever of 101 or Higher Remove Dressing in (days):: 1 - Binder for comfort only Additional Instructions: Okay to take ibuprofen or Aleve/Advil with Percocet avoid taking Tylenol as there is already Tylenol in the Percocet. Take all pain meds with food. Caution Percocet may cause constipation. Take a daily stool softener. If do not have a bowel movement for 1-2 days would recommend taking several doses of MiraLAX throughout the day. If no bowel movement after the MiraLAX recommend taking half a bottle of magnesium citrate the next day waiting 6 hours and if no results take the other half of the bottle. Allergies/Adverse Reactions: Allergies ketorolac tromethamine [From Toradol] Allergy (Verified 06/22/18 11:32) Shortness of breath ondansetron HCl [From Zofran] Allergy (Verified 06/22/18 11:32) Shortness of breath Medications to take at Discharge Mv-Min/Iron/Folic/Calcium/Vitk [Women's Daily Formula Tablet] 1 ea PO DAILY 10/19/17 Melatonin 3 mg PO QHS 03/20/18 Oxycodone HCl/Acetaminophen [Percocet 5-325] 1 tab PO Q4H PRN PRN 07/11/18 proMETHazine tablet [Phenergan tablet] 25 mg PO Q6H PRN PRN 07/11/18 Oxycodone [Oxyir] 5 - 10 mg PO Q6H PRN PRN #25 tablet 07/12/18 Primary Care Physician: Care Physician,No Primary [Primary Care Provider] - Test Results: Test results from this visit will be discussed in further detail at your follow-up appointment, if applicable. Please Follow Up With: Rosetta Miles MD - After 5:00/weekends call [phone] with any concerns When: Call the office [phone] for a follow-up appointment in 2 weeks. Proposed Discharge Date: 07/12/18
--- NOTE | 2018-07-12 12:49 | DCINST_ITS ---
Discharge Diet: Light diet - advance as tolerated Discharge Activity: May not drive while taking narcotic pain medications. May shower in (days): 1 Lifting Restrictions: No lifting greater than 20 pounds for 4 weeks Call your doctor if your incision/area has: Continuous Slow Oozing, Sudden Increased Bleeding, Increased Pain/ Swelling, Increased Redness, Foul Smelling Discharge, Swelling at the incision site Call your doctor if you observe: Fever of 101 or Higher Remove Dressing in (days):: 1 - Binder for comfort only Additional Instructions: Okay to take ibuprofen or Aleve/Advil with Percocet avoid taking Tylenol as there is already Tylenol in the Percocet. Take all pain meds with food. Caution Percocet may cause constipation. Take a daily stool softener. If do not have a bowel movement for 1-2 days would recommend taking several doses of MiraLAX throughout the day. If no bowel movement after the MiraLAX recommend taking half a bottle of magnesium citrate the next day waiting 6 hours and if no results take the other half of the bottle. Allergies/Adverse Reactions: Allergies ketorolac tromethamine [From Toradol] Allergy (Verified 06/22/18 11:32) Shortness of breath ondansetron HCl [From Zofran] Allergy (Verified 06/22/18 11:32) Shortness of breath Medications to take at Discharge Mv-Min/Iron/Folic/Calcium/Vitk [Women's Daily Formula Tablet] 1 ea PO DAILY 10/19/17 Melatonin 3 mg PO QHS 03/20/18 Oxycodone HCl/Acetaminophen [Percocet 5-325] 1 tab PO Q4H PRN PRN 07/11/18 proMETHazine tablet [Phenergan tablet] 25 mg PO Q6H PRN PRN 07/11/18 Oxycodone [Oxyir] 5 - 10 mg PO Q6H PRN PRN #25 tablet 07/12/18 Primary Care Physician: Care Physician,No Primary [Primary Care Provider] - Test Results: Test results from this visit will be discussed in further detail at your follow- up appointment, if applicable. Please Follow Up With: Rosetta Miles MD - After 5:00/weekends call [phone] with any concerns When: Call the office [phone] for a follow-up appointment in 2 weeks. Proposed Discharge Date: 07/12/18
[2018-07-12] MEDS: oxyCODONE 5 MG Tablet PO ×2 (16:07→20:27)
--- NOTE | 2018-07-12 18:10 | NURSING ---
reviewed and agree with charting by Neli Fitzpatrick, student nurse
--- NOTE | 2018-07-12 21:15 | NURSING ---
Pt stated her abdominal pain is 5/10, she has slight nausea, but has phenergan at home. Patient feels she is okay enough to be discharged. Nurse spoke to patient at length about having her nausea under control and not to vomit. Pt stated she will wear her abdominal binder and take phenergan if needed. Her mom left the hospital, but will come back to take patient home soon. Nurse took out IV, and Jyotsna did d/c teaching. Pt verbalized understanding with d/c teaching.
--- NOTE | 2018-07-12 21:30 | NURSING ---
Discharge teaching reviewed with patient. No further questions at this time. Pt report [facility] No further needs at this time.
== END 2018-07-12 22:05 | disposition home or self-care (01) ==
LOC: ED 20:19 → MS2 22:39
PROVIDERS: Admitting Provider Surgery; Emergency Provider Emergency Medicine; Visit Provider Surgery
PROC: (CPT 49566; principal; 2018-07-12 09:20)
DX: K43.0 Incisional hernia with obstruction, without gangrene (principal); K21.9 Gastro-esophageal reflux disease without esophagitis; K56.600 Partial intestinal obstruction, unspecified as to cause; Z79.899 Other long term (current) drug therapy; Z87.891 Personal history of nicotine dependence
CPT/HCPCS: 49566; 49568; 36415; 74177; 80048; 81025; 85025; 93005; 96361; 96374; 96375; 96376; 97802; 99218; 99283; C1781; J7030; J7040; J7120; Q9967; A4216; G0378; J2405

== ENCOUNTER 2018-07-17 07:01 | Emergency (ER) | payer MEDICAID, SELFPAY ==
[2018-07-17 07:02] VITALS: BP 165/89; PULSE 128; RESP 20; TEMP 36.6; O2SAT 97; BMI 49.7
--- NOTE | 2018-07-17 07:09 | CT_ITS ---
STUDY: CT ABDOMEN AND PELVIS WITH CONTRAST REASON FOR EXAM: Female, 33 years old. Recent hernia repair. Vomiting and pain. Prior tubal ligation and cholecystectomy. RADIATION DOSAGE (If Supplied By Facility): CTDIvol = ( 17.60 ) mGy, DLP = ( 1177.95 ) mGycm TECHNIQUE: Transaxial images were obtained from the dome of the diaphragm to the symphysis pubis without oral contrast. 100ML ml of Isovue 300 contrast was administered. Sagittal and coronal images were reconstructed. Individualized dose optimization techniques were used for this CT. COMPARISON: CT abdomen and pelvis 07/11/2018, 07/06/2018, 03/20/2018 FINDINGS: Body wall soft tissues: ] Are midline abdominal wall incision, with some induration in the adjacent fat, without organized hematoma/abscess/seroma. Consistent with recent hernia repair. Osseous structures: No acute process. Inferior chest: No acute process. Hepatobiliary: Hepatic steatosis with hepatomegaly, craniocaudal right liver 25 cm. Gallbladder absent. Nondilated biliary tree. Pancreas: No acute process. Spleen: Normal. Adrenal glands: Normal. Urogenital: A small low-density cystlike focus of the right kidney mid polar cortex measuring about 9.5 mm is unchanged compared to prior imaging as far back as 10/19/2017. Unremarkable kidneys, collecting systems, ureters, urinary bladder, anteverted uterus. Tubal ligation clips bilaterally. No adnexal mass or cyst. No cul-de-sac free fluid. Pelvic floor and sidewalls and retroperitoneum: No mass or adenopathy. Vasculature: No acute process. Stomach: No acute process. Small bowel and mesentery: No acute process. Large bowel: The appendix is not visible, and may be surgically absent. There are no acute inflammatory features in the region of the cecum. The large bowel and rectum are normal. Free fluid or free air: None. CT/Abdomen/Pelvis WITH Contrast IMPRESSION: Appropriate postsurgical features of the anterior abdominal wall. No acute intra-abdominal process is evident. Hepatic steatosis with hepatomegaly. Electronically Signed: Eros Karmen, at 11:56 EDT Tel , Service support ,
--- NOTE | 2018-07-17 07:13 | ED.VISSUMM ---
- ER Visit Summary Date of Service: 07/17/18 Chief Complaint: Abdominal pain History of Present Illness: The patient is a 33 F who went to the OR on July 12 for an incarcerated incisional hernia. Patient reports a pulling sensation in the right lower quadrant since the time of surgery. Her pain along with nausea and vomiting have been worse since 4 AM this morning. She reports subjective fevers and chills. Her last bowel movement was yesterday. She has had prior appendectomy and cholecystomy. She has had a prior partial small bowel obstruction. Physical Examination: Blood pressure is 165/89, temperature 97.9, heart rate 128, respiratory rate 20, pulse ox 97% on room air. Patient sitting upright in bed. She is tearful but in no acute distress. Head neck examination normal. Heart is tachycardic and regular. Lung sounds are clear. Abdomen is soft with tenderness in the right lower quadrant. Her periumbilical incision is dry with some dried blood noted. There is no sign of acute infection. She is appropriate postop tenderness around the incision site. Hypoactive bowel sounds are noted. Test Results: CBC is unremarkable. Chemistry studies are significant for potassium 3.1. Glucose is 133. LFTs normal. Urinalysis normal. CT abdomen pelvis with contrast reveals appropriate postsurgical features in the anterior abdominal wall. No acute intra-abdominal process is noted. Emergency Department Course and Treatment: Patient was given morphine and Zofran along with IV fluids. This is followed by Reglan and Benadryl for continued nausea. She did receive a single dose of Dilaudid 0.5 mg for continued pain. Patient was given potassium replacement IV. CT scan was discussed with Dr. Miles, her surgeon. Dr. Miles feels the patient still has a lot of stool in the right lower quadrant likely causing her pain. She was intended to use fleets enema or Dulcolax suppositories and to try mag citrate [id number]. This was discussed with the patient. Treatment Plan: [] Disposition: Discharge Impression: Postop abdominal pain This note was generated with [employer] dictation software. It may contain incorrect words, spelling, and punctuation that were not noted in review of the chart prior to signing ED Disposition - Plan for ED Patient: Disposition: Home or Assisted Living Chief Complaint: Abd Pain Instructions: ED Post Op Pain Prescriptions: Oxycodone HCl/Acetaminophen [Percocet 5/325] 1 tablet PO Q6H PRN PRN 5 Days #20 tablet PRN Reason: Pain Metoclopramide [Reglan] 10 mg PO 4X/DAY PRN #20 tablet PRN Reason: Nausea Referrals: Rosetta Miles MD [STAFF PHYSICIAN] - Keep [facility] appointment
[2018-07-17] MEDS: 0.9% Normal Saline 1,000 ML 150 ML IV (07:15)
[2018-07-17] MEDS: proMETHazine 25 MG/ML Syringe 12.5 MG IV ×2 (07:15→12:17)
[2018-07-17] MEDS: Morphine 4 MG/ML Syringe IV (07:16)
[2018-07-17 07:20] LABS: Absolute Lymphocyte Count 2.86 X10^3/ul (0.83-4.51); Basophil# 0.03 X10^3/uL; Basophil% 0.3 % (0-1); Eosinophil# 0.27 X10^3/uL; Eosinophils% 2.5 % (0-5); Hematocrit 40.9 % (37-47); Hemoglobin 13.3 g/dl (12.0-15.0); Lymphocyte # 2.86 X10^3/ul (4.0); Lymphocyte % 26.4 % (19-41); Mean Corp Hgb Conc 32.5 g/gl (32-36); Mean Corpuscular Hgb 30.2 pg (27.0-32.0); Mean Platelet Vol. 8.5 fl (6.2-12.0); Monocyte# 0.56 X10^3/uL; Monocyte% 5.2 % (0-10); Neutrophil # 6.95 X10^3/uL (2.7-7.7); Neutrophil % 64.1 % (47-70); Platelet Count 264 K/mm3 (150-450); RBC Distribution Width CV 13.2 % (11.6-14.6); RBC Distribution Width SD 43.5 fl (35.1-43.9); White Blood Count 10.8 K/mm3 (4.4-11.0)
[2018-07-17 07:23] LABS: POSITIVE COUNT NO; POSITIVE DIFFERENTIAL NO; POSITIVE MORPHOLOGY NO
[2018-07-17 07:35] LABS: AST(SGOT) 10 U/L (15-37); Alanine Aminotransfer ALT/SGPT 21 U/L (13-56); Albumin, Serum 3.5 g/dL (3.2-5.0); Alkaline Phosphatase 57 U/L (45-117); Anion Gap 12 (5-15); BUN 6 mg/dL (7-18); BUN/Creat Ratio 8.8 RATIO (10-20); Bilirubin, Direct 0.05 mg/dL (0.00-0.30); Calcium,Total 8.5 mg/dL (8.5-10.1); Chloride 105 mmol/L (98-107); Creatinine, Serum 0.68 mg/dL (0.55-1.02); EST Glomerular Filtration Rate 105 mL/min (>60); Est Glom Filt Rate - Afr Amer 127 mL/min (>60); Estimated Creatinine Clearance 105.89 ml/min; Globulin 3.4 g/dL (2.2-4.2); Glucose 133 mg/dL (74-106); Potassium 3.1 mmol/L (3.5-5.1); Protein, Total 6.9 g/dL (6.4-8.2); Sodium Level 140 mmol/L (136-145)
[2018-07-17] MEDS: Metoclopramide 10 MG/2 ML Vial IV (07:42)
[2018-07-17] MEDS: DiphenhydrAMINE 50 MG/ML Syringe 25 MG IV (07:42)
[2018-07-17 07:53] VITALS: BP 149/83; PULSE 108; RESP 18; O2SAT 97
[2018-07-17 08:27] VITALS: PULSE 98
[2018-07-17 08:59] LABS: Bacteria 0 SEEN /hpf (None Seen); Mucous, Urine 0 SEEN /hpf (<or=2+); Red Blood Cells-Urine 0 SEEN /hpf (0-5); White Blood Cells 0 SEEN /hpf (0-5)
[2018-07-17 09:03] LABS: Color, Urine Yellow (Yellow); Glucose, Dipstick Normal (Normal); Ketone-Dipstick Negative (Negative); Leukocyte Esterase-Dipstick Negative /ul (Negative); Nitrite-Dipstick Negative (Negative); Occult Blood-Urine Negative /ul (Negative); Protein-Dipstick Negative (Negative); Urine Bilirubin Dipstick Negative (Negative); Urine Clarity Sl. Cloudy (Clear); Urine Urobilinogen Normal (Normal)
[2018-07-17] MEDS: HYDROmorphone 0.5 MG/0.5 ML SYRINGE IV ×2 (09:05→12:16)
[2018-07-17 09:09] LABS: Squamous Epithelial Cells - UA 5-10 SEEN /hpf (5-10)
[2018-07-17 10:11] VITALS: BP 153/85; PULSE 93; RESP 20; O2SAT 96
[2018-07-17 12:17] VITALS: BP 145/85; PULSE 96; RESP 19; O2SAT 97
--- NOTE | 2018-07-17 12:50 | ED.DEP ---
ED Disposition - Plan for ED Patient: Disposition: Home or Assisted Living Chief Complaint: Abd Pain Instructions: ED Post Op Pain Prescriptions: Oxycodone HCl/Acetaminophen [Percocet 5/325] 1 tablet PO Q6H PRN PRN 5 Days #20 tablet PRN Reason: Pain Metoclopramide [Reglan] 10 mg PO 4X/DAY PRN #20 tablet PRN Reason: Nausea Referrals: Rosetta Miles MD [STAFF PHYSICIAN] - Keep Khan[facility] appointment
[2018-07-17 13:47] VITALS: BP 138/74; PULSE 61; RESP 15; O2SAT 98
== END 2018-07-17 13:50 | disposition home or self-care (01) ==
PROVIDERS: Emergency Provider Emergency Medicine
DX: R10.9 Unspecified abdominal pain (principal); G89.18 Other acute postprocedural pain; R11.2 Nausea with vomiting, unspecified; R06.00 Dyspnea, unspecified; Z87.891 Personal history of nicotine dependence
CPT/HCPCS: 74177; 80048; 80076; 81001; 85025; 96361; 96374; 96375; 96376; 99285; J7030; J7040; Q9967; A4216

== ENCOUNTER 2018-09-26 10:50 | Observation (INO) | payer MEDICAID, SELFPAY ==
[2018-09-26] VITALS (14 sets, daily range): BP systolic 98–170; BP diastolic 67–89; PULSE 71–122; RESP 15–18; TEMP 35.9–36.9; O2SAT 94–98; BMI 47.0; BMI 47.1
--- NOTE | 2018-09-26 11:06 | CT_ITS ---
STUDY: CT ABDOMEN AND PELVIS WITHOUT CONTRAST REASON FOR EXAM: Female, 33 years old. Bulge surrounding the umbilicus RADIATION DOSAGE (If Supplied By Facility): CTDIvol = ( 34.00 ) mGy, DLP = ( 1834.81 ) mGycm TECHNIQUE: Transaxial images were obtained from the dome of the diaphragm to the symphysis pubis without oral contrast, and without intravenous contrast. Sagittal and coronal images were reconstructed. Individualized dose optimization techniques were used for this CT. COMPARISON: None. FINDINGS: The visualized lung bases are unremarkable. The visualized portions of the heart are within normal limits. Normal liver. There is non-visualization of the gallbladder, which may be secondary to either contraction or a prior cholecystectomy. Normal spleen. Normal pancreas. Normal bilateral adrenal glands. Normal right kidney. Normal left kidney. Normal visualized stomach. Normal small intestine. Normal colon. There is non-visualization of the appendix. Normal abdominal aorta. Normal inferior vena cava. Normal retroperitoneum. Normal urinary bladder. Normal visualized uterus. Bilateral tubal ligation clips Left periumbilical hernia containing loop of transverse colon without evidence of incarceration or strangulation. No evidence of bowel obstruction. Normal osseous structures. CT/Abdomen/Pelvis without Cont IMPRESSION: Left periumbilical hernia containing a loop of transverse colon without evidence of complications Electronically Signed: Nick Armendariz DO at 12:20 EST Tel , Service support ,
[2018-09-26] MEDS: 0.9% Normal Saline 1,000 ML 1000 ML IV (11:30)
[2018-09-26] MEDS: Metoclopramide 10 MG/2 ML Vial IV (11:30)
[2018-09-26] MEDS: morphine 8 MG/ML Syringe IV (11:30)
[2018-09-26 11:35] LABS: Absolute Lymphocyte Count 2.12 X10^3/ul (0.83-4.51); Absolute Neutrophil Count 8.2 X10^3/uL (2.0-7.7); Basophil# 0.02 X10^3/uL; Basophil% 0.2 % (0-1); Eosinophils% 1.8 % (0-5); Hematocrit 44.8 % (37-47); Hemoglobin 15.4 g/dl (12.0-15.0); Lymphocyte # 2.12 X10^3/ul (4.0); Lymphocyte % 18.6 % (19-41); Mean Corp Hgb Conc 34.4 g/gl (32-36); Mean Corpuscular Hgb 31.6 pg (27.0-32.0); Mean Corpuscular Volume 91.8 fL (81-99); Mean Platelet Vol. 9.1 fl (6.2-12.0); Monocyte# 0.81 X10^3/uL; Monocyte% 7.1 % (0-10); Neutrophil # 8.15 X10^3/uL (2.7-7.7); Neutrophil % 71.3 % (47-70); Platelet Count 319 K/mm3 (150-450); RBC Distribution Width SD 42.7 fl (35.1-43.9); Red Blood Count 4.88 M/mm3 (4.2-5.4); White Blood Count 11.4 K/mm3 (4.4-11.0)
[2018-09-26 11:36] LABS: POSITIVE COUNT NO; POSITIVE DIFFERENTIAL NO; POSITIVE MORPHOLOGY NO
[2018-09-26 11:45] LABS: Anion Gap 11 (5-15); BUN 9 mg/dL (7-18); BUN/Creat Ratio 12.6 RATIO (10-20); Calcium,Total 9.5 mg/dL (8.5-10.1); Chloride 105 mmol/L (98-107); Creatinine, Serum 0.71 mg/dL (0.55-1.02); EST Glomerular Filtration Rate 100 mL/min (>60); Est Glom Filt Rate - Afr Amer 121 mL/min (>60); Estimated Creatinine Clearance 101.41 ml/min; Glucose 108 mg/dL (74-106); Sodium Level 138 mmol/L (136-145)
--- NOTE | 2018-09-26 12:32 | ED.RN ---
attempted ng placement. pt did not tolerate and is refusing at this time. explained rationale and importance pt verbalizes understanding. continues to decline ng at this time. dr clemente aware
--- NOTE | 2018-09-26 13:07 | ED.VISSUMM ---
- ER Visit Summary Date of Service: 09/26/18 Chief Complaint: Abdominal pain and bulge above the umbilicus after coughing History of Present Illness: The patient is a 33 F with recurrent umbilical and midline ventral hernia who presents with abdominal pain, bulge with nausea vomiting and no flatus for the past 12-18 hours. She states last bowel movement yesterday morning and normal for her. She does report fever. She denies headache, visual, ocular auditory symptoms. She denies chest pain, shortness of breath, cough, hemoptysis or pleuritic chest pain. She denies hematemesis. She denies radiation of the pain. She denies dysuria, frequency, urgency or hematuria. She does appear uncomfortable and reports pain. Physical Examination: Vital signs noted and remarkable for a heart rate of 122 and blood pressure 170/89. Head is atraumatic normocephalic. Pupils are equal round reactive. Extraocular muscles are intact. TMs are pearly white with landmarks noted. Nares patent with no drainage. Posterior pharynx without erythema or exudate. Uvula is midline. There is no dysphonia or dysphasia. Trachea is midline. There is no stridor with auscultation of the neck. Heart is rapid and regular without murmur, gallop or rub. S1 and S2 are normal. Lungs are clear to auscultation with good movement of air bilaterally. Abdomen soft with fullness midline supraumbilical with significant discomfort with palpation. Unable to reduce mass. Bowel sounds are diminished. There is no tympany to percussion. There is no evidence of trauma. She is anxious and in discomfort. Neuro exam is nonfocal. Test Results: CT of the abdomen reveals a hernia with part of the transverse colon in the hernia. Radiologist did not comment on evidence of partial obstruction. The surgeon, Dr. Marcial reports partial small bowel obstruction. White count is normal. Electro panels unremarkable. Emergency Department Course and Treatment: Case was discussed with surgeon who requested CT of the abdomen without contrast. He informed me of read prior to radiologist read. He requested transfer to [facility] hernia service. Spoke with the surgeon on duty for the [facility]. He requested to speak with the surgeon. Message was left with charge nurse in the OR to contact [facility] transfer line and ask for Nancy. Treatment Plan: Awaiting callback from Dr. Marcial. Disposition: To the OR Impression: Incarcerated midline ventral hernia, transverse colon This note was generated with VocalZoom dictation software. It may contain incorrect words, spelling, and punctuation that were not noted in review of the chart prior to signing ED Disposition - Plan for ED Patient: Disposition: Acute Care Hospital [facility] Chief Complaint: Abd Pain
--- NOTE | 2018-09-26 13:11 | ED.DCSUM_ITS ---
- ER Visit Summary Date of Service: 09/26/18 Chief Complaint: Abdominal pain and bulge above the umbilicus after coughing History of Present Illness: The patient is a 33 F with recurrent umbilical and midline ventral hernia who presents with abdominal pain, bulge with nausea vomiting and no flatus for the past 12-18 hours. She states last bowel movement yesterday morning and normal for her. She does report fever. She denies headache, visual, ocular auditory symptoms. She denies chest pain, shortness of breath, cough, hemoptysis or pleuritic chest pain. She denies hematemesis. She denies radiation of the pain. She denies dysuria, frequency, urgency or hematuria. She does appear uncomfortable and reports pain. Physical Examination: Vital signs noted and remarkable for a heart rate of 122 and blood pressure 170/89. Head is atraumatic normocephalic. Pupils are equal round reactive. Extraocular muscles are intact. TMs are pearly white with landmarks noted. Nares patent with no drainage. Posterior pharynx without erythema or exudate. Uvula is midline. There is no dysphonia or dysphasia. Trachea is midline. There is no stridor with auscultation of the neck. Heart is rapid and regular without murmur, gallop or rub. S1 and S2 are normal. Lungs are clear to auscultation with good movement of air bilaterally. Abdomen soft with fullness midline supraumbilical with significant discomfort with palpation. Unable to reduce mass. Bowel sounds are diminished. There is no tympany to percussion. There is no evidence of trauma. She is anxious and in discomfort. Neuro exam is nonfocal. Test Results: CT of the abdomen reveals a hernia with part of the transverse colon in the hernia. Radiologist did not comment on evidence of partial obstruction. The surgeon, Dr. Marcial reports partial small bowel obstruction. White count is normal. Electro panels unremarkable. Emergency Department Course and Treatment: Case was discussed with surgeon who requested CT of the abdomen without contrast. He informed me of read prior to radiologist read. He requested transfer to [facility] hernia service. Spoke with the surgeon on duty for the [facility]. He requested to speak with the surgeon. Message was left with charge nurse in the OR to contact [facility] transfer line and ask for Nancy. Treatment Plan: Awaiting callback from Dr. Marcial. Disposition: To the OR Impression: Incarcerated midline ventral hernia, transverse colon This note was generated with Spotster dictation software. It may contain incorrect words, spelling, and punctuation that were not noted in review of the chart prior to signing ED Disposition - Plan for ED Patient: Disposition: Acute Care Hospital [facility] Chief Complaint: Abd Pain
--- NOTE | 2018-09-26 14:51 | PCM.HP.STD ---
Problem List (1) Recurrent ventral hernia with incarceration Status: Acute History of Present Illness Date of Admission: 09/26/18 Chief Complaint: Abdominal pain The patient is a 33 year old F who has had several ventral hernia surgeries. The patient reports that for the last few days she has been coughing a lot and that she has felt a sharp tear in her abdomen and the pain has increased. She is not being able to go to the bathroom. She has been having nausea but no vomiting. She describes fever at home. She had what sounds to be a Blanca-en-Y as her initial ventral surgery. She had a ventral hernia repaired 2-3 years ago. She presented to the emergency room about 1 year ago and I repaired her ventral hernia with incarceration using sutures. She then presented to [facility] on May and had her hernia repaired once more there. She now repeats with recurrence and incarceration of the hernia containing transverse colon. In the meantime she also had an umbilical hernia repair with mesh by Dr. Miles Past Medical History Past Medical History (Chronic Problems): Chronic Problems (Last Reviewed 07/27/18 @ 09:29 by Laura Lind) History of anxiety disorder (Chronic) GERD (gastroesophageal reflux disease) (Chronic) Partial small bowel obstruction (Chronic) Medical History: Medical History (Last Reviewed 07/27/18 @ 09:29 by Laura Lind) History of anxiety disorder (Chronic) Z86.59 GERD (gastroesophageal reflux disease) (Chronic) K21.9 Partial small bowel obstruction (Chronic) Vomiting (Acute) R11.10 Allergies ketorolac tromethamine [From Toradol] Allergy (Verified 07/17/18 07:05) Shortness of breath ondansetron HCl [From Zofran] Allergy (Verified 07/17/18 07:05) Shortness of breath Home Medications: Ambulatory Orders Medication Instructions Recorded Acetaminophen [Tylenol Extra 1,000 mg PO Q6H PRN PRN 09/26/18 Strength] Surgical History: Surgical History (Last Reviewed 07/27/18 @ 09:29 by Laura Lind) Recurrent ventral hernia with incarceration (Acute) K43.0 Surgical History: appendectomy, cholecystectomy, - - 3 sections, some type of bilateral reflux surgery dealing with the small bowel, 3 recurrent ventral hernia repairs about 10 cm above the umbilicus-last one was done June 09, 2018. 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 Denies: Depression Hematologic/ Lymphatic: Denies: Easy Bruising VTE Information - Inpt Only VTE Present on Admission: No VTE Mechan Device Prophylaxis: SCD's - Physical Exam General: Alert, Oriented x3, Cooperative HEENT: Atraumatic, PERRLA, EOMI Neck: No JVD Lungs: Normal air movement Cardiovascular: Regular Rhythm, Tachycardic Abdomen: Soft, Obese, Tender Extremities: No clubbing Skin: No rashes Musculoskeletal: No Muscle Wasting Lymphatic: No Cervical, Supraclavicular, or Inguinal Adenopathy Neurological: Cranial nerves II-XII grossly intact Psych/Mental Status: Normal Affect, Appropriate, Anxious Vital Signs Temp Pulse Resp BP Pulse Ox 97.8 F 117 H 16 148/88 H 97 09/26/18 14:14 09/26/18 14:14 09/26/18 14:14 09/26/18 14:14 09/26/18 14:14 Oxygen Delivery Method Room Air Weight: 283 lb Body Mass Index (BMI) 47.0 Finger Stick Blood Glucose 109 Laboratory Tests Past 24 Hrs 09/26/18 09/26/18 11:10 11:10 WBC 11.4 H RBC 4.88 Hgb 15.4 H Hct 44.8 MCV 91.8 MCH 31.6 MCHC 34.4 RDW 13.0 RDW Differential 42.7 Plt Count 319 MPV 9.1 Immature Gran % (Auto) 1.000 H Neut % (Auto) 71.3 H Lymph % (Auto) 18.6 L Dodge % (Auto) 7.1 Eos % (Auto) 1.8 Baso % (Auto) 0.2 Absolute Neuts (auto) 8.2 H Absolute Lymphs (auto) 2.12 Total Counted Not Reportable Sodium 138 Potassium 4.0 Chloride 105 Carbon Dioxide 22.0 Anion Gap 11 BUN 9 Creatinine 0.71 Estim Creat Clear Calc 101.41 Est GFR (MDRD) Af Amer 121 Est GFR (MDRD) Non-Af 100 BUN/Creatinine Ratio 12.6 Glucose 108 H Calcium 9.5 Clinical Impression(s) from Imaging Studies Abdomen/Pelvis CT 09/26/18 11:06 IMPRESSION: Left periumbilical hernia containing a loop of transverse colon without evidence of complications Electronically Signed: Nick Armendariz DO at 12:20 EST Tel , Service support , Assessment/Plan All Active Problems (Last Reviewed 07/27/18 @ 09:29 by Laura Lind) Vomiting (Acute) Recurrent ventral hernia with incarceration (Acute) 33-year-old patient with incarcerated recurrent ventral hernia 1. The patient reports that she has had this hernia for a few days and she is not able to go to the bathroom. She is complaining of sharp pain at the hernia site. She has had nausea but no vomiting. 2. CT scan shows transverse colon in the hernia site. WBC count is elevated and the patient is tachycardic. I was not able to reduce the hernia in the emergency room. I believe the patient needs emergency surgery to reduce the bowel and possibly repair the hernia. 3. I explained to the patient that she has had 3 recurrences of this hernia. I do not know if I will be able to use mesh for repair as it depends on if a bowel resection is warranted or if there is inflammation of the bowel. I explained the risks of the procedure including but not limited to bleeding, infection, injury to underlying bowel, stoma creation, bowel resection. 4. I plan on performing an exploratory laparoscopy to see if I can reduce the contents of the hernia. If I am able to repair the hernia laparoscopically I will. If not I will convert to an open procedure and possibly placed an onlay mesh depending on the condition of the bowel. Heber Marcial MD Pager: [facility] [address] [place] [address], [address] [place] [address] Office:
[2018-09-26 14:58] LABS: Internal QC Validated? YES +Cl - CLEAR BKGD; Pregnancy, Urine Negative Negative
--- NOTE | 2018-09-26 14:58 | HP.PCM_ITS ---
Problem List (1) Recurrent ventral hernia with incarceration Status: Acute History of Present Illness Date of Admission: 09/26/18 Chief Complaint: Abdominal pain The patient is a 33 year old F who has had several ventral hernia surgeries. The patient reports that for the last few days she has been coughing a lot and that she has felt a sharp tear in her abdomen and the pain has increased. She is not being able to go to the bathroom. She has been having nausea but no vomiting. She describes fever at home. She had what sounds to be a Blanca-en-Y as her initial ventral surgery. She had a ventral hernia repaired 2-3 years ago. She presented to the emergency room about 1 year ago and I repaired her ventral hernia with incarceration using sutures. She then presented to [facility] on May and had her hernia repaired once more there. She now repeats with recurrence and incarceration of the hernia containing transverse colon. In the meantime she also had an umbilical hernia repair with mesh by Dr. Miles Past Medical History Past Medical History (Chronic Problems): Chronic Problems (Last Reviewed 07/27/18 @ 09:29 by Laura Lind) History of anxiety disorder (Chronic) GERD (gastroesophageal reflux disease) (Chronic) Partial small bowel obstruction (Chronic) Medical History: Medical History (Last Reviewed 07/27/18 @ 09:29 by Laura Lind) History of anxiety disorder (Chronic) Z86.59 GERD (gastroesophageal reflux disease) (Chronic) K21.9 Partial small bowel obstruction (Chronic) Vomiting (Acute) R11.10 Allergies ketorolac tromethamine [From Toradol] Allergy (Verified 07/17/18 07:05) Shortness of breath ondansetron HCl [From Zofran] Allergy (Verified 07/17/18 07:05) Shortness of breath Home Medications: Ambulatory Orders Medication Instructions Recorded Acetaminophen [Tylenol Extra 1,000 mg PO Q6H PRN PRN 09/26/18 Strength] Surgical History: Surgical History (Last Reviewed 07/27/18 @ 09:29 by Laura Lind) Recurrent ventral hernia with incarceration (Acute) K43.0 Surgical History: appendectomy, cholecystectomy, - - 3 sections, some type of bilateral reflux surgery dealing with the small bowel, 3 recurrent ventral hernia repairs about 10 cm above the umbilicus-last one was done June 09, 2018. 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 Denies: Depression Hematologic/ Lymphatic: Denies: Easy Bruising VTE Information - Inpt Only VTE Present on Admission: No VTE Mechan Device Prophylaxis: SCD's - Physical Exam General: Alert, Oriented x3, Cooperative HEENT: Atraumatic, PERRLA, EOMI Neck: No JVD Lungs: Normal air movement Cardiovascular: Regular Rhythm, Tachycardic Abdomen: Soft, Obese, Tender Extremities: No clubbing Skin: No rashes Musculoskeletal: No Muscle Wasting Lymphatic: No Cervical, Supraclavicular, or Inguinal Adenopathy Neurological: Cranial nerves II-XII grossly intact Psych/Mental Status: Normal Affect, Appropriate, Anxious Vital Signs Temp Pulse Resp BP Pulse Ox 97.8 F 117 H 16 148/88 H 97 09/26/18 14:14 09/26/18 14:14 09/26/18 14:14 09/26/18 14:14 09/26/18 14:14 Oxygen Delivery Method Room Air Weight: 283 lb Body Mass Index (BMI) 47.0 Finger Stick Blood Glucose 109 Laboratory Tests Past 24 Hrs 09/26/18 09/26/18 11:10 11:10 WBC 11.4 H RBC 4.88 Hgb 15.4 H Hct 44.8 MCV 91.8 MCH 31.6 MCHC 34.4 RDW 13.0 RDW Differential 42.7 Plt Count 319 MPV 9.1 Immature Gran % (Auto) 1.000 H Neut % (Auto) 71.3 H Lymph % (Auto) 18.6 L Holmes % (Auto) 7.1 Eos % (Auto) 1.8 Baso % (Auto) 0.2 Absolute Neuts (auto) 8.2 H Absolute Lymphs (auto) 2.12 Total Counted Not Reportable Sodium 138 Potassium 4.0 Chloride 105 Carbon Dioxide 22.0 Anion Gap 11 BUN 9 Creatinine 0.71 Estim Creat Clear Calc 101.41 Est GFR (MDRD) Af Amer 121 Est GFR (MDRD) Non-Af 100 BUN/Creatinine Ratio 12.6 Glucose 108 H Calcium 9.5 Clinical Impression(s) from Imaging Studies Abdomen/Pelvis CT 09/26/18 11:06 IMPRESSION: Left periumbilical hernia containing a loop of transverse colon without evidence of complications Electronically Signed: Nick Armendariz DO at 12:20 EST Tel , Service support , Assessment/Plan All Active Problems (Last Reviewed 07/27/18 @ 09:29 by Laura Lind) Vomiting (Acute) Recurrent ventral hernia with incarceration (Acute) 33-year-old patient with incarcerated recurrent ventral hernia 1. The patient reports that she has had this hernia for a few days and she is not able to go to the bathroom. She is complaining of sharp pain at the hernia site. She has had nausea but no vomiting. 2. CT scan shows transverse colon in the hernia site. WBC count is elevated and the patient is tachycardic. I was not able to reduce the hernia in the emergency room. I believe the patient needs emergency surgery to reduce the bowel and possibly repair the hernia. 3. I explained to the patient that she has had 3 recurrences of this hernia. I do not know if I will be able to use mesh for repair as it depends on if a bowel resection is warranted or if there is inflammation of the bowel. I explained the risks of the procedure including but not limited to bleeding, infection, injury to underlying bowel, stoma creation, bowel resection. 4. I plan on performing an exploratory laparoscopy to see if I can reduce the contents of the hernia. If I am able to repair the hernia laparoscopically I will. If not I will convert to an open procedure and possibly placed an onlay mesh depending on the condition of the bowel. Heber Marcial MD Pager: [facility] [address] [place] [address], [address] [place] [address] Office:
[2018-09-26] MEDS: Bupivacaine Mpf 0.5% 30 ML VIAL (16:50)
--- NOTE | 2018-09-26 17:09 | PCM.OPRPT ---
Problem List (1) Recurrent ventral hernia with incarceration Status: Acute Report of Operation Date of Procedure: 09/26/18 Pre-Operative Diagnosis: Recurrent incarcerated ventral hernia Post-Operative Diagnosis: Same Surgery/Procedure Performed:: Laparoscopic recurrent incarcerated ventral hernia repair with mesh Type of Anesthesia:: General Estimated Blood Loss (mL): 50 cc Description of Procedure: Patient was brought back to the operating room and general anesthesia was induced. The patient's abdomen was prepped and draped in normal sterile fashion. Next a left lateral incision was made in the abdomen just superior to the umbilicus. Using Visiport technique a 5 mm port was placed in the left abdomen. Once the abdomen was entered the abdomen was insufflated to 15 mmHg and inspected. There were dense adhesions but there is no injury upon entry to the abdomen. Next under direct visualization 2 more ports were placed in the left upper quadrant. Using sharp dissection the loose adhesions were taken down. Next the hernia was identified and the colon was entering the hernia from the right side and then exiting the hernia. This was dissected free sharply without any injury to the transverse colon. Once all the contents were dissected free from the anterior abdominal wall the colon was inspected and appeared to be intact. The hernia was inspected and measuring appear to measure 6 cm in diameter. Next an incision was made in the right lateral abdomen and a 12 mm port was placed through this. A [address] mesh with echo positioning device was selected. The mesh was rolled and placed into the abdomen through the 12 mm port. A small clyde was made with scalpel over the center of the hernia and a David Hahn needle was used to bring the loop of the balloon anterior and the balloon was insufflated. Next using a secure strap tacker the 4 corners of the mesh were secured and then the balloon was removed from the abdomen and it was intact. Next the secure strap tacker was used to tack the mesh circumferentially and 2 rows. The mesh ended up very flat and covered the entire defect with good overlay. Next the 12 mm port was removed and using a David Hahn needle and an 0 Vicryl suture a [id number] was placed into the fascia and this defect was closed. Next the left abdominal ports were removed. The air was allowed to exit the abdomen. Next the incisions were anesthetized with Marcaine and closed with interrupted 4-0 Monocryl sutures. Steri-Strips and bandages were then applied. The patient was awoken and taken to PACU in stable condition. The patient tolerated the procedure well. Grafts/Implants Used: [address] mesh - Admit VTE Documentation VTE Present on Admission: No VTE Mechan Device Prophylaxis: SCD's
[2018-09-26] MEDS: 0.9% NaCl Peripheral Flush Adult/Peds IV (18:40)
[2018-09-26] MEDS: HYDROmorphone 1 MG/ML Syringe IV ×3 (18:40→22:29)
[2018-09-26] MEDS: 0.9% Normal Saline 1,000 ML 125 ML IV (18:40)
[2018-09-26] MEDS: oxyCODONE 5 MG Tablet PO ×2 (19:37→23:35)
[2018-09-26] MEDS: proMETHazine 25 MG/ML Syringe 12.5 MG IV (19:38)
[2018-09-26] MEDS: Docusate Sodium 100 MG Capsule PO (22:19)
--- NOTE | 2018-09-26 23:26 | NURSING ---
pt. up walking in hallway with [employer].
[2018-09-27] MEDS: HYDROmorphone 1 MG/ML Syringe IV ×7 (00:38→12:56)
[2018-09-27] MEDS: proMETHazine 25 MG/ML Syringe 12.5 MG IV (01:51)
[2018-09-27] MEDS: 0.9% Normal Saline 1,000 ML 125 ML IV (01:51)
[2018-09-27 02:01] VITALS: BP 141/88; PULSE 110; RESP 16; TEMP 36.6; O2SAT 96
[2018-09-27] MEDS: oxyCODONE 5 MG Tablet PO ×4 (03:45→15:34)
[2018-09-27] MEDS: Docusate Sodium 100 MG Capsule PO (07:49)
[2018-09-27 07:52] VITALS: BP 119/71; PULSE 83; RESP 18; TEMP 36.6; O2SAT 93
[2018-09-27 08:18] LABS: Anion Gap 8 (5-15); BUN 5 mg/dL (7-18); Calcium,Total 8.1 mg/dL (8.5-10.1); Chloride 106 mmol/L (98-107); Creatinine, Serum 0.55 mg/dL (0.55-1.02); EST Glomerular Filtration Rate 134 mL/min (>60); Est Glom Filt Rate - Afr Amer 162 mL/min (>60); Estimated Creatinine Clearance 125.63 ml/min; Glucose 117 mg/dL (74-106); Potassium 3.9 mmol/L (3.5-5.1); Sodium Level 135 mmol/L (136-145)
[2018-09-27] MEDS: 0.9% NaCl Peripheral Flush Adult/Peds IV ×3 (08:37→12:56)
--- NOTE | 2018-09-27 09:15 | PN.SURG_ITS ---
Subjective: Patient is ambulating. She is still complaining of pain at the site of the hernia but the rest of the abdomen is soft and nontender. She is passing gas and no nausea or vomiting. - Physical Exam General: Alert, Oriented x3, Cooperative Lungs: Normal air movement Abdomen: Soft, Non-Distended, - - The patient's hernia site is tender but the rest of her abdomen is soft and nontender. Vital Signs Temp Pulse Resp BP Pulse Ox 98 F 83 18 119/71 93 09/27/18 07:52 09/27/18 07:52 09/27/18 07:52 09/27/18 07:52 09/27/18 07:52 Oxygen Flow Rate (L/min) 3 Oxygen Delivery Method Room Air Weight: 282 lb 13.649 oz Body Mass Index (BMI) 47.1 Finger Stick Blood Glucose 109 Intake and Output for Last 24 Hours 09/25/18 09/26/18 09/27/18 23:59 23:59 23:59 Intake Total 1800 / 1800 2389 / 2389 Output Total 2300 / 2300 Balance 1800 / 1800 89 / 89 Laboratory Tests Past 24 Hrs 09/26/18 09/26/18 09/26/18 11:10 11:10 14:43 WBC 11.4 H RBC 4.88 Hgb 15.4 H Hct 44.8 MCV 91.8 MCH 31.6 MCHC 34.4 RDW 13.0 RDW Differential 42.7 Plt Count 319 MPV 9.1 Immature Gran % (Auto) 1.000 H Neut % (Auto) 71.3 H Lymph % (Auto) 18.6 L [place] % (Auto) 7.1 Eos % (Auto) 1.8 Baso % (Auto) 0.2 Absolute Neuts (auto) 8.2 H Absolute Lymphs (auto) 2.12 Total Counted Not Reportable Sodium 138 Potassium 4.0 Chloride 105 Carbon Dioxide 22.0 Anion Gap 11 BUN 9 Creatinine 0.71 Estim Creat Clear Calc 101.41 Est GFR (MDRD) Af Amer 121 Est GFR (MDRD) Non-Af 100 BUN/Creatinine Ratio 12.6 Glucose 108 H Calcium 9.5 Urine Test Negative 09/27/18 09/27/18 06:20 07:52 WBC RBC Hgb Hct MCV MCH MCHC RDW RDW Differential Plt Count MPV Immature Gran % (Auto) Neut % (Auto) Lymph % (Auto) [place] % (Auto) Eos % (Auto) Baso % (Auto) Absolute Neuts (auto) Absolute Lymphs (auto) Total Counted Sodium Cancelled 135 L Potassium Cancelled 3.9 Chloride Cancelled 106 Carbon Dioxide Cancelled 21.0 Anion Gap Cancelled 8 BUN Cancelled 5 L Creatinine Cancelled 0.55 Estim Creat Clear Calc Cancelled 125.63 Est GFR (MDRD) Af Amer Cancelled 162 Est GFR (MDRD) Non-Af Cancelled 134 BUN/Creatinine Ratio Cancelled 9.0 L Glucose Cancelled 117 H Calcium Cancelled 8.1 L Urine Test Medical Necessity - Tobacco Use Smoking Status: Former smoker Assessment/Plan All Active Problems (Last Reviewed 07/27/18 @ 09:29 by Laura Lind) Vomiting (Acute) Recurrent ventral hernia with incarceration (Acute) 33-year-old female status post lap scopic repair of recurrent incarcerated ventral hernia 1. Patient is still having pain where the mesh was tacked in. The rest of her abdomen is soft and nontender. She is tachycardic and I am waiting on a CBC. She is passing gas with no nausea or vomiting and she says the rest of her abdomen feels fine. 2. She will be discharged when she is tolerating a diet and pain is well controlled on p.o. meds alone. Heber Marcial MD Pager: [facility] [address] [place] [address], [address] [place] [address] Office:
--- NOTE | 2018-09-27 09:19 | NURSING ---
This RN called lab to notify them that CBC was ordered and either has not been drawn or has not been resulted. Understanding verbalized- looking into. Notified that Mk came in after 0700 this morning and was taking blood from pt.
[2018-09-27 09:26] LABS: Absolute Lymphocyte Count 1.43 X10^3/ul (0.83-4.51); Absolute Neutrophil Count 11.8 X10^3/uL (2.0-7.7); Basophil# 0.01 X10^3/uL; Basophil% 0.1 % (0-1); Eosinophil# 0.01 X10^3/uL; Eosinophils% 0.1 % (0-5); Hematocrit 38.7 % (37-47); Lymphocyte # 1.43 X10^3/ul (4.0); Lymphocyte % 9.9 % (19-41); Mean Corp Hgb Conc 33.6 g/gl (32-36); Mean Corpuscular Hgb 31.5 pg (27.0-32.0); Mean Corpuscular Volume 93.7 fL (81-99); Mean Platelet Vol. 9.2 fl (6.2-12.0); Monocyte# 1.11 X10^3/uL; Monocyte% 7.7 % (0-10); Neutrophil # 11.76 X10^3/uL (2.7-7.7); Neutrophil % 81.5 % (47-70); Platelet Count 280 K/mm3 (150-450); RBC Distribution Width CV 12.7 % (11.6-14.6); RBC Distribution Width SD 42.8 fl (35.1-43.9); Red Blood Count 4.13 M/mm3 (4.2-5.4); White Blood Count 14.4 K/mm3 (4.4-11.0)
[2018-09-27 09:30] LABS: POSITIVE COUNT NO; POSITIVE DIFFERENTIAL NO; POSITIVE MORPHOLOGY NO
[2018-09-27 13:50] VITALS: BP 147/82; PULSE 86; RESP 16; TEMP 36.7; O2SAT 96
--- NOTE | 2018-09-27 15:23 | NURSING ---
Pt requesting to be d/c'ed, Dr. Marcial notified and states that he will not be readmitting the patient tonight if not. Patient notified of same and states that she will be able to go home and will be fine. She states her brother was admitted to [facility] in a different hospital and she must leave so that her daughter is not alone- as all family will be going to be with her brother.
--- NOTE | 2018-09-27 15:24 | DCINST_ITS ---
Discharge Diet: Light diet - advance as tolerated Discharge Activity: Return to Normal Activity, May Not Drive - for 2-3 days or while taking narcotic pain meds., May Shower - with the bandage in place 1-2 days after surgery. Lifting Restrictions: 20 pounds for 8 weeks. Additional Activity Instructions:: Climbing stairs is fine, walking is encouraged. Sitting in bed may be uncomfortable. Sitting up using your lateral muscles (sitting up sideways) is usually more comfortable. Do not drive, work heavy equipment of sign legal documents for 24 hours. Pain medications may cause nausea, you should typically eat light foods as you take your pain medications. Pain medications may also cause constipation. If you have difficulty with this, discuss with your doctor. Call your doctor if your incision/area has: Continuous Slow Oozing, Sudden Increased Bleeding, Increased Pain/ Swelling, Increased Redness, Foul Smelling Discharge Call your doctor if you observe: Fever of 101 or Higher Suture Line Care: Avoid Pulling/Pushing, Avoid Pinching/Bending Change Dressing in (Days):: 3 - Leave steri-strips for 1 week. May protect with a guaze bandaid. Cleanse incision/area with: Keep Dressing Clean & Dry Allergies/Adverse Reactions: Allergies ketorolac tromethamine [From Toradol] Allergy (Verified 07/17/18 07:05) Shortness of breath ondansetron HCl [From Zofran] Allergy (Verified 07/17/18 07:05) Shortness of breath Medications to take at Discharge Acetaminophen [Tylenol] 1,000 mg PO Q6H PRN PRN 09/26/18 Oxycodone HCl/Acetaminophen [Percocet 5/325] 1 - 2 tablet PO Q4H PRN PRN 7 Days #50 tablet 09/27/18 The following prescriptions were given: Oxycodone HCl/Acetaminophen [Percocet 5/325] 1 - 2 tablet PO Q4H PRN PRN 7 Days #50 tablet PRN Reason: Pain Primary Care Physician: Care Physician,No Primary [Primary Care Provider] - Test Results: Test results from this visit will be discussed in further detail at your follow- up appointment, if applicable. Please Follow Up With: Heber Marcial MD When: Please call to schedule 2 week follow up appointment. [phone]
--- NOTE | 2018-09-27 15:25 | DS.PCM_ITS ---
Discharge Date and Diagnosis Date of Admission: 09/26/18 Date of Discharge: 09/27/18 - Secondary Discharge Diagnosis Chronic Problems (Last Reviewed 07/27/18 @ 09:29 by Laura Lind) History of anxiety disorder (Chronic) GERD (gastroesophageal reflux disease) (Chronic) Partial small bowel obstruction (Chronic) Hospital Course and Treatment Imaging Results: Clinical Impression(s) from Imaging Studies Abdomen/Pelvis CT 09/26/18 11:06 IMPRESSION: Left periumbilical hernia containing a loop of transverse colon without evidence of complications Electronically Signed: Nick Armendariz DO at 12:20 EST Tel , Service support , Operations: - - Incarcerated ventral hernia repair Procedures: None Summary of Care Provided: The patient is a 33 year old F who presented with abdominal pain and inability to reduce recurrent ventral hernia. She was taken to the operating room david rgently for a laparoscopic ventral hernia repair with mesh. The abdominal contents were reduced into the abdomen successfully. After surgery the patient was tolerating a diet and her diet was advanced. The following day once her pain was under control she was discharged home in stable condition. - Physical Exam Vital Signs Temp Pulse Resp BP Pulse Ox 98.1 F 86 16 147/82 H 96 09/27/18 13:50 09/27/18 13:50 09/27/18 13:50 09/27/18 13:50 09/27/18 13:50 Oxygen Flow Rate (L/min) 3 Oxygen Delivery Method Room Air Weight: 282 lb 13.649 oz Body Mass Index (BMI) 47.1 Finger Stick Blood Glucose 109 Intake and Output for Last 24 Hours 09/25/18 09/26/18 09/27/18 23:59 23:59 23:59 Intake Total 1800 / 1800 2989 / 2989 Output Total 2700 / 2700 Balance 1800 / 1800 289 / 289 Laboratory Tests Past 24 Hrs 09/27/18 09/27/18 09/27/18 06:20 07:52 07:52 WBC 14.4 H RBC 4.13 L Hgb 13.0 Hct 38.7 MCV 93.7 MCH 31.5 MCHC 33.6 RDW 12.7 RDW Differential 42.8 Plt Count 280 MPV 9.2 Immature Gran % (Auto) 0.700 Neut % (Auto) 81.5 H Lymph % (Auto) 9.9 L [place] % (Auto) 7.7 Eos % (Auto) 0.1 Baso % (Auto) 0.1 Absolute Neuts (auto) 11.8 H Absolute Lymphs (auto) 1.43 Total Counted Not Reportable Sodium Cancelled 135 L Potassium Cancelled 3.9 Chloride Cancelled 106 Carbon Dioxide Cancelled 21.0 Anion Gap Cancelled 8 BUN Cancelled 5 L Creatinine Cancelled 0.55 Estim Creat Clear Calc Cancelled 125.63 Est GFR (MDRD) Af Amer Cancelled 162 Est GFR (MDRD) Non-Af Cancelled 134 BUN/Creatinine Ratio Cancelled 9.0 L Glucose Cancelled 117 H Calcium Cancelled 8.1 L Discharge Diet: Light diet - advance as tolerated Discharge Activity: Return to Normal Activity, May Not Drive - for 2-3 days or while taking narcotic pain meds., May Shower - with the bandage in place 1-2 days after surgery. Additional Activity Instructions:: Climbing stairs is fine, walking is encouraged. Sitting in bed may be uncomfortable. Sitting up using your lateral muscles (sitting up sideways) is usually more comfortable. Do not drive, work heavy equipment of sign legal documents for 24 hours. Pain medications may cause nausea, you should typically eat light foods as you take your pain medications. Pain medications may also cause constipation. If you have difficulty with this, discuss with your doctor. Call your doctor if your incision/area has: Continuous Slow Oozing, Sudden Increased Bleeding, Increased Pain/ Swelling, Increased Redness, Foul Smelling Discharge Call your doctor if you observe: Fever of 101 or Higher Suture Line Care: Avoid Pulling/Pushing, Avoid Pinching/Bending Change Dressing in (Days):: 3 - Leave steri-strips for 1 week. May protect with a guaze bandaid. Cleanse incision/area with: Keep Dressing Clean & Dry Home Medications: Medications to take at Discharge Acetaminophen [Tylenol] 1,000 mg PO Q6H PRN PRN 09/26/18 Oxycodone HCl/Acetaminophen [Percocet 5/325] 1 - 2 tablet PO Q4H PRN PRN 7 Days #50 tablet 09/27/18 Following Prescrptions Were Given to Patient: Oxycodone HCl/Acetaminophen [Percocet 5/325] 1 - 2 tablet PO Q4H PRN PRN 7 Days #50 tablet PRN Reason: Pain Primary Care Physician: Care Physician,No Primary [Primary Care Provider] - Please Follow Up With: Heber Marcial MD When: Please call to schedule 2 week follow up appointment. [phone] Medical Necessity - Tobacco Use Smoking Status: Former smoker Meaningful Use Info Meaningful Use Diagnoses (Choose all that apply): None applicable
--- OUTSIDE RECORDS SUMMARY | 2018-12-28 20:19 | XMS RPT_ITS ---
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 The validity of the calculated GFR AND GFRAA in patients over 70 years has not been determined. Clinical correlation is essential. LAB L501.1110 >60 mL/min Normal EST GFR 158 Result Comment: Non- GFR Calc LAB L501.1115 >60 mL/min Normal EST GFR - AA 191 Result Comment: GFR Calc LAB L501.1255 ml/min Normal Estimated CRCL 150.00 LAB L501.1300 10-20 RATIO BUN/CRE Normal 12.5 LAB L501.2200 8.5-10 mg/dL .1 CA Normal 8.5 LAB L501.5300 136-14 mmol/L 5 NA Normal 137 LAB L501.5600 3.5-5. mmol/L 1 K Normal 3.9 LAB L501.5900 98-107 mmol/L CL Normal 106 LAB L501.6100 21.0-3 mmol/L Low 2.0 CO2 20.0 LAB L501.6200 5-15 GAP Normal 11 Performed By: #### L500.2500 #### [facility] [address] [place], [address] CBC-COMPLETE BLOOD CNT Collected: 10/10/2018 Status: F Source: [place] NO DIFF 5:00 AM [facility] REPOSITORY Order Comment: BLOOD IN LAB TYPE CODE TESTS RESULT OUT OF RANGE REFERENCE UNITS LAB L100.1000 4.4-11.0 K/mm3 High WBC 12.4 LAB L100.1200 4.2-5.4 M/mm3 Low RBC 4.13 LAB L100.1300 12.0-15.0 g/dl Normal HGB 12.4 LAB L100.1400 37-47 % Normal HCT 38.0 LAB L100.1500 81-99 fL Normal MCV 92.0 LAB L100.1600 27.0-32.0 pg Normal MCH 30.0 LAB L100.1700 32-36 g/gl Normal MCHC 32.6 LAB L100.1810 11.6-14.6 % Normal RDW CV 12.7 LAB L100.1820 35.1-43.9 fl Normal RDW SD 42.9 LAB L100.1900 150-450 K/mm3 Normal PLT 285 LAB L100.2000 6.2-12.0 fl Normal MPV 8.9 Performed By: #### L100.0500 #### [facility] [address] [facility] [place], [address] HISTORY AND PHYSICAL Observed: 10/10/2018 Status: F Source: [place] EXAM 4:21 AM [facility] REPOSITORY [facility] Medical Records Department [address] [place] [address] History and Physical 10/09/186 MR#: [id number] Acct: [id number] Name: REBEKA MARES Rep #: [id number] : 1985 33 From: Alan Torres MD PCP: Care Physician, No Primary Status: ADM J LUIS Y Location: [place] [address] Problem List (1) Intractable abdominal pain Status: Acute History of Present Illness Date of Admission: 11/09/18 Chief Complaint: Abdominal pain The patient is a 33 year old F with a significant history of anxiety; appendectomy; cholecystectomy ; six hernia repair with the 6 hernia repair surgery done on September 26 2018 who presented to the emergency department because of progressively worsening abdominal pain that started after her recent hernia repair with mesh. Her pain is located at the left upper quadrant where her recent surgery was done; and at her right lower abdominal fold. Her pain increases with moving; and it improves with not moving. Her pain at the right upper quadrant is sharp; positive pain at her right abdominal fold is 'pulling'. She tried ibuprofen without any real relief. Associated with her symptoms is nausea, diaphoresis and chills. She reports a subjective fever at home. Although typically her bowels moved at least 1-2 times a day she has not had a bowel movement for the last 2 days. And she was afraid to take any Colace because she thought it might worsen her abdominal symptoms. Her pain is continues and it can get as worse as 10 out of 10. At the the emergency department her potassium was 3.2 but it corrected to 3.5. She had leukocytosis of 13.9 and bandemia. She had lactic acid of 7.3; and an anion gap which was 16-17. Her respiratory rate initially was from 22-26. Her heart rate was from 113-145. She had elevated ketones in her urine. Her Glucose on BMP was 120 -124 At the emergency department patient received 2500 normal saline IV bolus. She received Phenergan; morphine and Dilaudid. CT scan of the abdomen did not show any acute disease. Emergency department doctor discussed case with Dr. Geiger, General Surgeon who also reviewed the CT scan. The Emergency Department doctor reported that Dr. Geiger who also reviewed the CT of the abdomen did not see any acute pathology on the CT. Past Medical History Past Medical History (Chronic Problems): Chronic Problems (Last Reviewed 10/10/18 @ 02:33 by Alan Torres MD) History of anxiety disorder (Chronic) GERD (gastroesophageal reflux disease) (Chronic) Partial small bowel obstruction (Chronic) Medical History: Medical History (Last Reviewed 10/10/18 @ 02:33 by Alan Torres MD) History of anxiety disorder (Chronic) Z86.59 GERD (gastroesophageal reflux disease) (Chronic) K21.9 Partial small bowel obstruction (Chronic) Vomiting (Resolved) R11.10 Allergies ketorolac tromethamine [From Toradol] Allergy (Verified 10/09/18 17:45) Shortness of breath ondansetron HCl [From Zofran] Allergy (Verified 10/09/18 17:45) Shortness of breath Home Medications: Ambulatory Orders Medication Instructions Recorded NK 10/09/18 Surgical History: Surgical History (Last Reviewed 10/10/18 @ 02:33 by Alan Torres MD) Recurrent ventral hernia with incarceration (Resolved) K43.0 Surgical History: appendectomy, cholecystectomy, herniorrhaphy - x6. Patient reported that a mass was removed in her left lower quadrant. She reported that after she had an infection at the site where the mass was removed for which reason she had another surgery and then a wound VAC was placed., - - 3 sections, some type of bilateral reflux surgery dealing with the small bowel. Psychiatric History: Anxiety BUSINESS EXCELLENCE MANAGER History: No pertinent BUSINESS EXCELLENCE MANAGER history Lives: With Family Smoking Status: Former smoker Alcohol: Rare - *Family History Maternal History Items: Diabetes, Hypertension, Stroke, - - Heart attack Paternal History Items: Cancer - Colon, Diabetes, Hypertension, - Review of Systems Constitutional: Reports: Chills, Fever - Subjective. Denies: Weight Change HEENT: Denies: Head Aches, Sinus Congestion, Sinus Drainage Cardiovascular: Denies: Chest Pain, Palpitations Respiratory: Denies: Cough, Shortness of breath at rest, Sputum production Gastrointestinal: Reports: Abdominal Pain, Constipation, Nausea. Denies: Vomiting Genitourinary: Denies: Dysuria Musculoskeletal: Denies: Joint Pain, Joint Tenderness Skin: Denies: Rash, Wounds Neurological: Denies: Numbness, Tingling, Focal weakness Psychiatric: Denies: Anxiety, Depression, Homicidal Ideations, Suicidal Ideations Hematologic/ Lymphatic: Denies: Easy Bruising, Easy Bleeding VTE Information - Inpt Only VTE Present on Admission: No VTE Mechan Device Prophylaxis: None VTE Pharm Prophylaxis ordered?: Yes Patient Problems: Active and Suspected Problems (Last Reviewed 10/10/18 @ 02:33 by Alan Torres MD) Intractable abdominal pain (Acute) - Physical Exam General: Alert, Oriented x3, Cooperative HEENT: Atraumatic, PERRLA, EOMI, Normocephalic Neck: Supple, No JVD, Negative Carotid Bruits Lungs: Clear to auscultation, Normal air movement, Tachypneic Cardiovascular: No murmurs, Tachycardic Abdomen: Bowel Sounds Present, Soft, Tender - Multiple areas of tenderness of the abdomen Extremities: No edema, Capillary Refill Less than 3 Seconds Skin: No rashes, No breakdown Musculoskeletal: No Tenderness to Palpation of Joints or Extremities Neurological: Neuro grossly intact Psych/Mental Status: Normal Affect, Appropriate Vital Signs Temp Pulse Resp BP Pulse Ox 97.8 F 121 H 22 H 132/71 H 96 10/09/18 19:10 10/09/18 21:05 10/09/18 21:05 10/09/18 21:05 10/09/18 21:05 Oxygen Delivery Method Room Air Weight: 128.367 kg Body Mass Index (BMI) 47.0 Finger Stick Blood Glucose 109 Laboratory Tests Past 24 Hrs Assessment/Plan All Active Problems (Last Reviewed 10/10/18 @ 02:33 by Alan Torres MD) Intractable abdominal pain (Acute) Vomiting (Resolved) Recurrent ventral hernia with incarceration (Resolved) The patient is a 33 year old F with a significant history of anxiety; appendectomy; cholecystectomy ; six hernia repair with a 6 hernia repair surgery done on September 26 2018 who presented to the emergency department because of progressively worsening abdominal pain that started after hernia repair with mesh; and with nausea; chills; diaphoresis; tachypnea; tachycardia; leukocytosis with bandemia and lactic acidosis. Intractable abdominal pain. The etiology of her intractable abdominal pain is unclear at this time. However because she recently had a mesh we will put patient on antibiotics of Flagyl and ciprofloxacin. Pain Medication: Patient reports that in the past she had abdominal upset with morphine. Dilaudid as needed ordered. Antiemetics: Reportedly patient has an allergy of shortness of breath with Zofran. Received Phenergan at emergency department. Phenergan as needed continued. Patient has lactic acidosis of 7.3. The etiology of her lactic acidosis is not clear at this time. Patient received IV fluids at emergency department. Lactated Ringer's with potassium for maintenance infusion ordered. If her abdominal pain continue consider a CTA of her abdomen. Consider discussing with [facility] who did her surgery. Her surgery was on September 26, [address] Heber Marcial. Review of records show that she has an appointment on 10/12/[address] Heber Marcial. Infectious workup: Urinalysis was unremarkable; chest x-ray ordered at the emergency department was unremarkable. Blood cultures x 2 was ordered. Trend lactic acid Senokot- S for constipation Trend CBC and BMP. Elevated blood pressure without diagnosis of hypertension. Highest systolic blood pressure was 163; and higher level blood pressure was 134. She denies having elevated blood pressure except at the hospital setting and she attributes this to pain. Trend blood pressures. Labetalol as needed for systolic blood pressure more than 170. DVT Prophylaxis Lovenox ordered Code Visit Inpatient E AND M: 45141 Init Hosp L3 10/10/18 0421 <Electronically signed by Alan Torres MD> Date Alan Torres MD Cosigner Signature: Date (if applicable) CC: No Primary Care Physician; Alan Torres MD Signed LACTIC ACID Collected: 10/10/2018 Status: F Source: [place] 2:14 AM [facility] REPOSITORY TYPE CODE TESTS RESULT OUT OF REFERENCE UNITS RANGE LAB L503.6005 0.4-2.0 mmol/L High alert LACTIC ACID 4.6 Result Comment: Critical Result(s) Called at: 03:20:16 10/10/2018 by: Nasir Sykes to [facility] Performed By: #### L503.6005 #### [facility] [address] [place] [address]. [place], [address] Observed: 10/10/2018 Status: F Source: [place] CULTURE, BLOOD (WB) 2:14 AM [facility] REPOSITORY Has pt arrived? Y BC No growth in 5 days. Performed By: #### M200.1000 #### [facility] [facility] [place], [address] Observed: 10/10/2018 Status: F Source: [place] CULTURE, BLOOD (WB) 12:40 AM [facility] REPOSITORY Has pt arrived? Y BC No growth in 5 days. Performed By: #### M200.1000 #### [facility] [address] [facility] [place], [address] CHEST 1 VIEW Observed: 10/10/2018 Status: F Source: [place] (PORTABLE) 12:23 AM [facility] REPOSITORY [facility] Imaging Services [address] [place] [address] Chest 1 View (Portable) MR#: [id number] Acct: [id number] Name: REBEKA MARES Rep #: [id number] : 1985 F 33 From: Wili Goodman PCP: Care Physician, No Primary Status: ADM J LUIS Study: Chest 1 View (Portable) Date of Exam: 10/10/18 Exam# [id number] Ordering Dr: Zenaida Mtz MD STUDY: X-RAY CHEST REASON FOR EXAM: Female, 33 years old. Cough. TECHNIQUE: AP portable chest. COMPARISON: June 22, 2018. FINDINGS: The lungs are clear and expanded. There is no demonstrated pleural abnormality. Normal size heart. Normal mediastinum and denisse. Normal visualized pulmonary arteries. Normal visualized aortic arch and descending thoracic aorta. Normal visualized thoracic spine. Normal visualized ribs, clavicles, and shoulders. There is no demonstrated abnormality of the visualized soft tissue structures of the upper abdomen. RAD/Chest 1 View (Portable) IMPRESSION: Normal x-ray examination of the chest. Electronically Signed: Wili Goodman MD at 2:40 EST , Service support , CC: No Primary Care Physician; Zenaida Mtz MD Warehouse Delivery Manager: Signed EMERGENCY DEPARTMENT Observed: 10/10/2018 Status: F Source: [place] SUMMARY 12:11 AM [facility] REPOSITORY [facility] Medical Records Department [address] [place] [address] Emergency Department Summary 10/09/18 1843 MR#: [id number] Acct: [id number] Name: REBEKA MARES Miki Rep #: [id number] : 1985 33 From: Zenaida Mtz MD PCP: Care Physician, No Primary Status: ADM J LUIS ADDENDUM by Zenaida Mtz MD on 10/10/18 at 0011 Lactic acid is 7.3. Patient was given additional IV fluids according to ideal body weight. She feels improved on reevaluation. Abdomen is soft with diffuse tenderness, no rebound or guarding. Discussed with Dr. Geiger installation supervisor. She reviewed the CT images and agrees with radiology. Discussed with the hospitalist for admission. 10/10/18 0011 Date Zenaida Mtz MD cc: No Primary Care Physician * Signed - ER Visit Summary Date of Service: 10/09/18 Chief Complaint: Abdominal pain History of Present Illness: The patient is a 33 F presenting with abdominal pain. She had surgery September [address] Marcial for ventral hernia repair. She states over the past couple of days the pain has worsened. She has had chills with no fever. She has nausea with no vomiting. She has been taking ibuprofen at home today. She states the pain is increased. She denies chest pain or shortness of breath. She denies other complaints. Physical Examination: Vitals are stable. Heart rate 145. Patient is afebrile. Alert no acute distress. HEENT exam is unremarkable. Neck is supple. Lungs are clear and equal bilaterally. Heart is regular and tachycardic Abdomen is soft diffuse tenderness with no rebound or guarding, incisions clean dry intact Extremities are unremarkable. Skin is warm and dry. No focal neurologic deficit. Remainder of exam is unremarkable. Emergency Department Course and Treatment: Patient given morphine, Phenergan IV. CBC shows white count 13.9. Chemistries show potassium 3.2, CO2 18, glucose 124. Liver lipase are normal. HCG negative. She was given IV fluids. Repeat BMP shows CO2 16. CT abdomen pelvis shows status post cholecystectomy. 1.2 cm hypodense nodule of the right kidney indeterminate for solid versus cystic structure. Nonemergent ultrasonographic correlation is recommended. Bilateral tubal ligation clips are present. There are findings consistent with post anterior abdominal wall hernia repair changes. There is no evidence of free intra-abdominal or intrapelvic air, fluid, or inflammatory process. There is a well-defined sclerotic focus of the T9 vertebral body most likely representing benign process such as bone island. Patient remains tachycardic with heart rate in the 120s after 2 L of IV fluids. She continues to deny chest pain or shortness of breath. Her pulse ox is 97% on room air. She is given multiple repeat doses of pain medication. Lactic acid is pending. Discussed with the hospitalist for observation. Disposition: Observation Impression: Abdominal pain This note was generated with [employer] dictation software. It may contain incorrect words, spelling, and punctuation that were not noted in review of the chart prior to signing ED Disposition - Plan for ED Patient: Chief Complaint: Abd Pain Referrals: Care Physician,No Primary [Primary Care Provider] - What to do if you have Problems For any increased pain, shortness of breath, bleeding, nausea or vomiting, chest pain, or any unexpected problems, contact your Primary Care Provider. Call [facility] ([phone]) or report to the closest Emergency Room. Call 911 if necessary. 10/09/18 2314 <Electronically signed by Zenaida Mtz MD> Date Zenaida Mtz MD Cosigner Signature (If Indicated): Date CC: No Primary Care Physician URINALYSIS, COMPLETE Collected: 10/09/2018 Status: F Source: [place] 11:50 PM [facility] REPOSITORY Order Comment: How was Urine Obtained? CLEAN CATCH TYPE CODE TESTS RESULT OUT OF RANGE REFERENCE UNITS LAB L400.3000 Yellow COLOR Normal Yellow LAB L400.3050 Clear Sl Normal CLARITY Cldy LAB L400.3200 Normal mg/dl Normal GLUCOSE, UR NEGATIVE LAB L400.3300 Negative mg/dL Normal BILIRUBIN URINE Negative LAB L400.3400 Negative mg/dl High 15 KETONE UR LAB L400.3465 1.002-1.030 Normal SP.GR. DIPSTX 1.020 LAB L400.3550 5.0 - 8.0 pH UR Normal 6.0 LAB L400.3600 Negative mg/dl High PROT 15 DIPSTX LAB L400.3700 Normal mg/dl Normal UROBILI Normal LAB L400.3750 Negative Normal NITRITE UR Negative LAB L400.3780 Negative /ul Normal OCCULT BLOOD-UR Negative LAB L400.3800 Negative /ul LEUK Normal ESTERASE Negative LAB L400.4050 0-5 /hpf WBC Normal 0-5 SEEN LAB L400.4100 0-5 /hpf Normal RBC-UA 0-5 SEEN LAB L400.4150 5-10 /hpf SQUAM Normal EPI 0-5 SEEN LAB L400.4300 None Seen /hpf 1+ Normal BACTERIA LAB L400.4350 <or=2+ /hpf 0 Normal MUCUS, URINE SEEN Performed By: #### L400.0001 #### [facility] [address] [facility] [address] [place], [place], [address] LACTIC ACID Collected: 10/09/2018 Status: F Source: [place] 10:40 PM [facility] REPOSITORY Order Comment: Yes/No query for Sepsis Lactate Rule Y TYPE CODE TESTS RESULT OUT OF REFERENCE UNITS RANGE LAB L503.6005 0.4-2.0 mmol/L High alert LACTIC ACID 7.3 Result Comment: Critical Result(s) Called at: 23:26:44 10/09/2018 by: Nasir dunne Performed By: #### L503.6005 #### [facility] [address] [facility] [place], [place], [address] BASIC METABOLIC Collected: 10/09/2018 Status: F Source: [place] PROFILE (BMP) 10:08 PM [facility] REPOSITORY TYPE CODE TESTS RESULT OUT OF RANGE REFERENCE UNITS LAB L501.0100 74-106 mg/dL High GLU 120 Result Comment: Fasting Glucose result from 100 to 125 mg/dL suggests IMPAIRED HOMEOSTASIS per A.D.A. criteria. Please note revised GLUCOSE reference range effective 2017. LAB L501.1000 7-18 mg/dL Normal BUN 8 LAB L501.1100 0.55-1.02 mg/dL Normal CREAT,SERUM 0.73 Result Comment: The validity of the calculated GFR AND GFRAA in patients over 70 years has not been determined. Clinical correlation is essential. LAB L501.1110 >60 mL/min Normal EST GFR 97 Result Comment: Non- GFR Calc LAB L501.1115 >60 mL/min Normal EST GFR - AA 117 Result Comment: GFR Calc LAB L501.1255 ml/min Normal Estimated CRCL 98.63 LAB L501.1300 10-20 RATIO Normal BUN/CRE 10.9 LAB L501.2200 8.5-10 mg/dL Low .1 CA 8.3 LAB L501.5300 136-14 mmol/L Normal 5 NA 140 LAB L501.5600 3.5-5. mmol/L Normal 1 K 3.5 LAB L501.5900 98-107 mmol/L Normal CL 107 LAB L501.6100 21.0-3 mmol/L Low 2.0 CO2 16.0 LAB L501.6200 5-15 High GAP 17 Performed By: #### L500.2500 #### [facility] [address] [facility] [place], [address] ABDOMEN/PELVIS WITH Observed: 10/09/2018 Status: F Source: [place] CONTRAST 6:40 PM [facility] REPOSITORY [facility] Imaging Services [address] [place] [address] Abdomen/Pelvis WITH Contrast MR#: [id number] Acct: [id number] Name: REBEKA MARES Rep #: [id number] : 1985 F 33 From: Payam Tovar MD PCP: Care Physician, No Primary Status: REG ER Study: Abdomen/Pelvis WITH Contrast Date of Exam: 10/09/18 Exam# [id number] Ordering Dr: Zenaida Mtz MD ADDENDUM by Payam Tovar M.D. on 10/09/18 at 2142 ADDENDUM ADDENDUM: The low-attenuation nodule of the right kidney is stable in the interval. There has been interval resolution of subcutaneous abdominal wall gas densities noted on the prior study. The lung bases are presently clear. Electronically Signed: Payam Tovar MD at 21:42 EST , Service support , 10/09/182141 Date cc: No Primary Care Physician; Zenaida Mtz MD * Signed ADDENDUM by Payam Tovar M.D. on 10/09/[address]/Abdomen/Pelvis WITH Contrast 10/09/182147 Date cc: No Primary Care Physician; Zenaida Mtz MD * Signed STUDY: CT ABDOMEN AND PELVIS WITH CONTRAST REASON FOR EXAM: Female, 33 years old. Mid abdominal pain, recurrent ventral hernia with incarceration RADIATION DOSAGE (If Supplied By Facility): CTDIvol = ( 18.74 ) mGy, DLP = ( 1371.88 ) mGycm TECHNIQUE: Transaxial images were obtained from the dome of the diaphragm to the symphysis pubis without oral contrast. 100ml ml of Isovue 300 contrast was administered. Sagittal and coronal images were reconstructed. Individualized dose optimization techniques were used for this CT. COMPARISON: Previous recent study of 09/29/2018 FINDINGS: The visualized lung bases are unremarkable. The visualized portions of the heart are within normal limits. Normal liver. There are surgical clips in the gallbladder fossa consistent with a prior cholecystectomy. Normal spleen. Normal pancreas. Normal bilateral adrenal glands. There is a 1.2 cm hypodense nodule of the right kidney indeterminate for solid versus cystic structure. Normal left kidney. Normal visualized stomach. Normal small intestine. Normal colon. There is non-visualization of the appendix. Normal abdominal aorta. Normal inferior vena cava. Normal retroperitoneum. Normal urinary bladder. Uterus and adnexal structures are unremarkable. Bilateral tubal ligation clips are present. There are findings consistent with post anterior abdominal wall hernia repair changes. There is a well-defined sclerotic focus of the T9 vertebral body. CT/Abdomen/Pelvis WITH Contrast IMPRESSION: 1. Status post cholecystectomy. 2. 1.2 cm hypodense nodule of the right kidney indeterminate for solid versus cystic structure. Nonemergent ultrasonographic correlation is recommended. 3. Bilateral tubal ligation clips are present. 4. There are findings consistent with post anterior abdominal wall hernia repair changes. 5. There is no evidence of free intra-abdominal or intrapelvic air, fluid, or inflammatory process. 6. There is a well-defined sclerotic focus of the T9 vertebral body most likely representing benign process such as bone island. Electronically Signed: Payam Tovar MD at 21:02 EST , Service support , CC: No Primary Care Physician; Zenaida Mtz MD Warehouse Delivery Manager: Signed CBC W/DIFF, AUTOMATED Collected: 10/09/2018 Status: F Source: [place] 5:55 PM [facility] REPOSITORY TYPE CODE TESTS RESULT OUT OF RANGE REFERENCE UNITS LAB L100.1000 4.4-11.0 K/mm3 High WBC 13.9 LAB L100.1200 4.2-5.4 M/mm3 Normal RBC 4.70 LAB L100.1300 12.0-15.0 g/dl Normal HGB 14.8 LAB L100.1400 37-47 % Normal HCT 43.2 LAB L100.1500 81-99 fL Normal MCV 91.9 LAB L100.1600 27.0-32.0 pg Normal MCH 31.5 LAB L100.1700 32-36 g/gl Normal MCHC 34.3 LAB L100.1810 11.6-14.6 % Normal RDW CV 12.6 LAB L100.1820 35.1-43.9 fl Normal RDW SD 41.8 LAB L100.1900 150-450 K/mm3 Normal PLT 391 LAB L100.2000 6.2-12.0 fl Normal MPV 9.3 LAB L100.2100 47-70 % Normal NEUT% 64.6 LAB L100.2200 19-41 % Normal LY% 24.8 LAB L100.2300 0-10 % Normal MONO% 6.2 LAB L100.2400 0-5 % Normal EO% 2.9 LAB L100.2500 0-1 % Normal BASO% 0.4 LAB L100.2550 0.0-0.9 % High IM GRAN % 1.100 Result Comment: IG% - Immature Granulocytes (promyelocytes, myelocytes and metamyelocytes) > 1% indicates that a LEFT SHIFT is Present. LAB L100.2620 2.0-7.7 X10 3/uL High Absolute Neut 9.0 LAB L100.2720 0.83-4.51 X10 3/ul Normal Absolute Lymph 3.46 Performed By: #### L100.0100 #### [facility] [address] [place], [address] BASIC METABOLIC Collected: 10/09/2018 Status: F Source: [place] PROFILE (BMP) 5:55 PM [facility] REPOSITORY TYPE CODE TESTS RESULT OUT OF RANGE REFERENCE UNITS LAB L501.0100 74-106 mg/dL High GLU 124 Result Comment: Fasting Glucose result from 100 to 125 mg/dL suggests IMPAIRED HOMEOSTASIS per A.D.A. criteria. Please note revised GLUCOSE reference range effective 2017. LAB L501.1000 7-18 mg/dL Normal BUN 10 LAB L501.1100 0.55-1.02 mg/dL Normal CREAT,SERUM 0.78 Result Comment: The validity of the calculated GFR AND GFRAA in patients over 70 years has not been determined. Clinical correlation is essential. LAB L501.1110 >60 mL/min Normal EST GFR 91 Result Comment: Non- GFR Calc LAB L501.1115 >60 mL/min Normal EST GFR - AA 110 Result Comment: GFR Calc LAB L501.1255 ml/min Normal Estimated CRCL 92.31 LAB L501.1300 10-20 RATIO Normal BUN/CRE 12.9 LAB L501.2200 8.5-10 mg/dL Normal .1 CA 9.5 LAB L501.5300 136-14 mmol/L Normal 5 NA 138 LAB L501.5600 3.5-5. mmol/L Low 1 K 3.2 LAB L501.5900 98-107 mmol/L Normal CL 104 LAB L501.6100 21.0-3 mmol/L Low 2.0 CO2 18.0 LAB L501.6200 5-15 High GAP 16 Performed By: #### L500.2500, L500.3400, L501.2450 #### [facility] [address] [place], [place], [id number] LIVER PROFILE Collected: 10/09/2018 Status: F Source: [place] 5:55 PM [facility] REPOSITORY TYPE CODE TESTS RESULT OUT OF RANGE REFERENCE UNITS LAB L501.1500 6.4-8.2 g/dL Normal T PROT 7.9 LAB L501.1800 3.2-5.0 g/dL Normal ALB 4.1 LAB L501.1950 2.2-4.2 g/dL Normal GLOB 3.8 LAB L501.4100 15-37 U/L Normal AST 16 LAB L501.4305 45-117 U/L Normal ALK P 60 LAB L501.4405 13-56 U/L Normal ALT 28 LAB L501.4600 0.20-1.00 mg/dL Normal T BILI 0.30 LAB L501.4700 0.00-0.30 mg/dL Normal D BILI 0.08 Performed By: #### L500.2500, L500.3400, L501.2450 #### [facility]. [place], [place], [id number] LIPASE Collected: 10/09/2018 Status: F Source: [place] 5:55 PM [facility] REPOSITORY TYPE CODE TESTS RESULT OUT OF RANGE REFERENCE UNITS LAB L501.2450 73-393 U/L Normal LIPASE 117 Performed By: #### L500.2500, L500.3400, L501.2450 #### [facility] [address] [facility] [place], [place], [id number] ,SERUM,HCG QUALI. Collected: Status: F Source: [place] 10/09/2018 5:55 PM [facility] REPOSITORY TYPE CODE TESTS RESULT OUT OF REFERENCE UNITS RANGE LAB L700.7000 0-9 Nonpreg Negative Normal HCGSQUAL NEGATIVE LAB L700.6700 =>Qualitative mIU/mL Normal HCG Qual < 1 triggr Performed By: #### L700.6800 #### [facility] [address] [place], [place], [id number] EMERGENCY DEPARTMENT Observed: 09/30/2018 Status: F Source: [place] SUMMARY 12:56 AM [facility] REPOSITORY [facility] Medical Records Department [address] [place] [address] Emergency Department Summary 09/29/182048 MR#: [id number] Acct: [id number] Name: REBEKA MARES Rep #: [id number] : 1985 33 From: Michelle Orourke MD PCP: Care Physician, No Primary Status: REG ER - ER Visit Summary Date of Service: 09/29/18 Chief Complaint: Abdominal pain, vomiting History of Present Illness: The patient is a 33 F who had a hernia repair with mesh placement on September 26. She was discharged home on the . She presents tonight with nausea and vomiting along with cough and increased pain. She is been unable to keep her pain meds down. She is passing gas. Patient did have a total of 4 ventral hernia repairs. She does report having problems after surgery with similar symptoms. Physical Examination: Blood pressure is 157/89, temperature 97.6, heart rate 121, respiratory rate 22, pulse ox 98% on room air. Head neck examination is grossly unremarkable. Heart is tachycardic and regular. Lungs sounds with expiratory wheezes. Abdomen is soft with upper abdominal tenderness. No guarding or rebound. Bowel sounds are present. Surgical sites are clean. Test Results: CBC and chemistry studies are unremarkable. LFTs normal. Emergency Department Course and Treatment: Patient was initially given morphine, Phenergan, and IV fluids. As advised by nursing staff sometime later that the patient vomited up some soda that she had drank at home prior to arrival. She is given a dose of Dilaudid, Reglan, and Benadryl. At 23:30 patient is complaining of burning sensation across her upper abdomen. She states this does not feel like reflux or stomach acid. Abdomen is soft with appropriate postop tenderness. Lung sounds are clear. Patient received an additional 0.[address] scan with IV contrast only will be obtained. Patient's heart rate is significantly improved and clinically patient looks improved. CT with IV contrast shows postoperative inflammatory changes in the midline anterior abdominal wall with diffuse subcu gas. No fluid collection. Bowel unremarkable. At this time patient feels significantly improved. She has been taking Phenergan at home, but gets better nausea relief with the Reglan and Benadryl. She will be given these for home. Patient had been trying to take her Percocet at home but has been vomiting it back up. She is concerned that she will not have enough pills to control her symptoms. She will be given a new prescription, but advised to try to make the pills she has at home last as long as possible. If the pharmacy gives her a hard time about filling a new prescription, I have asked her to have the pharmacist call us so we can verify documentation of the patient had lost multiple of her medications secondary to vomiting. Treatment Plan: [] Disposition: Discharge Impression: Postop pain and nausea, improved This note was generated with [employer] software. It may contain incorrect words, spelling, and punctuation that were not noted in review of the chart prior to signing ED Disposition - Plan for ED Patient: Chief Complaint: Abd Pain Referrals: Care Physician,No Primary [Primary Care Provider] - What to do if you have Problems For any increased pain, shortness of breath, bleeding, nausea or vomiting, chest pain, or any unexpected problems, contact your Primary Care Provider. Call [facility] ([phone]) or report to the closest Emergency Room. Call 911 if necessary. 09/30/18 0056 <Electronically signed by Michelle Orourke MD> Date Michelle Orourke MD Cosigner Signature (If Indicated): Date CC: No Primary Care Physician DISCHARGE INSTRUCTION Observed: 09/30/2018 Status: F Source: [place] 12:52 AM [facility] REPOSITORY [facility] Medical Records Department [address] [place] [address] Discharge Instruction 09/30/18 0049 MR#: [id number] Acct: [id number] Name: REBEKA MARES Rep #: [id number] : 1985 33 From: Michelle Orourke MD PCP: Care Physician, No Primary Status: REG ER ED Disposition - Plan for ED Patient: Disposition: Home or Assisted Living Chief Complaint: Abd Pain Instructions: ED Post Op Pain Prescriptions: DiphenhydrAMINE [Benadryl] 25 mg PO Q6H PRN PRN #14 capsule PRN Reason: Nausea Oxycodone HCl/Acetaminophen [Percocet 5/325] 1 tablet PO Q6H PRN PRN 3 Days #12 tablet PRN Reason: Pain Metoclopramide [Reglan] 10 mg PO 4X/DAY PRN #20 tablet PRN Reason: Nausea Referrals: Heber Marcial MD [STAFF PHYSICIAN] - 1-2 Weeks What to do if you have Problems For any increased pain, shortness of breath, bleeding, nausea or vomiting, chest pain, or any unexpected problems, contact your Primary Care Provider. Call [facility] ([phone]) or report to the closest Emergency Room. Call 911 if necessary. 09/30/18 0052 <Electronically signed by Michelle Orourke MD> Date Michelle Orourke MD Cosigner Signature (If Indicated): Date CC: No Primary Care Physician ABDOMEN/PELVIS W IV CONT Observed: 09/29/2018 Status: F Source: [place] ONLY 11:36 PM [facility] REPOSITORY [facility] Imaging Services [address] [place] [address] Abdomen/Pelvis W IV Cont ONLY MR#: [id number] Acct: [id number] Name: REBEKA MARES Miki Rep #: [id number] : 1985 F 33 From: Michael Stevenson MD PCP: Care Physician, No Primary Status: REG ER Study: Abdomen/Pelvis W IV Cont ONLY Date of Exam: 09/29/18 Exam# [id number] Ordering Dr: Michelle Orourke MD STUDY: CT ABDOMEN AND PELVIS WITH CONTRAST REASON FOR EXAM: Female, 33 years old. Abdominal pain status post hernia repair RADIATION DOSAGE (If Supplied By Facility): CTDIvol = ( 17.07 ) mGy, DLP = ( 1333.95 ) mGycm TECHNIQUE: Transaxial images were obtained from the dome of the diaphragm to the symphysis pubis without oral contrast. 100 ml of Isovue 300 contrast was administered. Sagittal and coronal images were reconstructed. Individualized dose optimization techniques were used for this CT. COMPARISON: None. FINDINGS: Bibasilar atelectasis versus scar formation. The visualized portions of the heart are within normal limits. Normal liver. Normal gallbladder and extrahepatic biliary system. Normal spleen. Normal pancreas. Normal bilateral adrenal glands. Hypoattenuated exophytic lesion off the lateral midpole of the left kidney which measures hyperdense to water. Normal left kidney. Normal visualized stomach. Normal small intestine. Normal colon. The appendix is not visualized. Normal abdominal aorta. Normal inferior vena cava. Normal retroperitoneum. Normal urinary bladder. Reproductive organs are unremarkable with the exception of bilateral fallopian clips. Subcutaneous gas throughout the left anterior abdominal pain. Inflammatory change in the midline abdominal wall. Normal osseous structures. CT/Abdomen/Pelvis W IV Cont ONLY IMPRESSION: 1. Postoperative inflammatory change in the midline anterior abdominal wall with diffuse subcutaneous gas but with no evidence of fluid collection. 2. Hypoattenuated exophytic lateral midpole of the left kidney which does not meet strict CT criteria for simple cyst. Dedicated MR imaging is recommended for further characterization to rule out possible solid neoplasm. Electronically Signed: Michael Stevenson MD at 0:32 EST Tel , Service support , CC: No Primary Care Physician; Michelle Orourke MD Warehouse Delivery Manager: Signed CBC W/DIFF, AUTOMATED Collected: 09/29/2018 Status: F Source: [place] 9:20 PM [facility] REPOSITORY TYPE CODE TESTS RESULT OUT OF RANGE REFERENCE UNITS LAB L100.1000 4.4-11.0 K/mm3 Normal WBC 9.3 LAB L100.1200 4.2-5.4 M/mm3 Normal RBC 4.23 LAB L100.1300 12.0-15.0 g/dl Normal HGB 13.2 LAB L100.1400 37-47 % Normal HCT 39.7 LAB L100.1500 81-99 fL Normal MCV 93.9 LAB L100.1600 27.0-32.0 pg Normal MCH 31.2 LAB L100.1700 32-36 g/gl Normal MCHC 33.2 LAB L100.1810 11.6-14.6 % Normal RDW CV 12.7 LAB L100.1820 35.1-43.9 fl Normal RDW SD 42.6 LAB L100.1900 150-450 K/mm3 Normal PLT 240 LAB L100.2000 6.2-12.0 fl Normal MPV 9.0 LAB L100.2100 47-70 % Normal NEUT% 69.3 LAB L100.2200 19-41 % Normal LY% 21.4 LAB L100.2300 0-10 % Normal MONO% 6.1 LAB L100.2400 0-5 % Normal EO% 2.6 LAB L100.2500 0-1 % Normal BASO% 0.1 LAB L100.2550 0.0-0.9 % Normal IM GRAN % 0.500 Result Comment: IG% - Immature Granulocytes (promyelocytes, myelocytes and metamyelocytes) > 1% indicates that a LEFT SHIFT is Present. LAB L100.2620 2.0-7.7 X10 3/uL Normal Absolute Neut 6.5 LAB L100.2720 0.83-4.51 X10 3/ul Normal Absolute Lymph 1.99 Performed By: #### L100.0100 #### [facility] [place], [address] BASIC METABOLIC Collected: 09/29/2018 Status: F Source: [place] PROFILE (BMP) 9:20 PM [facility] REPOSITORY TYPE CODE TESTS RESULT OUT OF RANGE REFERENCE UNITS LAB L501.0100 74-106 mg/dL High GLU 107 Result Comment: Fasting Glucose result from 100 to 125 mg/dL suggests IMPAIRED HOMEOSTASIS per A.D.A. criteria. Please note revised GLUCOSE reference range effective 2017. LAB L501.1000 7-18 mg/dL Normal BUN 8 LAB L501.1100 0.55-1.02 mg/dL Low CREAT,SERUM 0.48 Result Comment: The validity of the calculated GFR AND GFRAA in patients over 70 years has not been determined. Clinical correlation is essential. LAB L501.1110 >60 mL/min Normal EST GFR 157 Result Comment: Non- GFR Calc LAB L501.1115 >60 mL/min Normal EST GFR - AA 190 Result Comment: GFR Calc LAB L501.1255 ml/min Normal Estimated CRCL 150.00 LAB L501.1300 10-20 RATIO BUN/CRE Normal 16.5 LAB L501.2200 8.5-10 mg/dL .1 CA Normal 8.5 LAB L501.5300 136-14 mmol/L 5 NA Normal 140 LAB L501.5600 3.5-5. mmol/L 1 K Normal 3.6 LAB L501.5900 98-107 mmol/L CL Normal 105 LAB L501.6100 21.0-3 mmol/L 2.0 CO2 Normal 26.0 LAB L501.6200 5-15 GAP Normal 9 Performed By: #### L500.2500, L500.3400 #### [facility] [address] [place], [address] LIVER PROFILE Collected: 09/29/2018 Status: F Source: [place] 9:20 PM [facility] REPOSITORY TYPE CODE TESTS RESULT OUT OF RANGE REFERENCE UNITS LAB L501.1500 6.4-8.2 g/dL Normal T PROT 6.5 LAB L501.1800 3.2-5.0 g/dL Normal ALB 3.2 LAB L501.1950 2.2-4.2 g/dL Normal GLOB 3.3 LAB L501.4100 15-37 U/L Normal AST 16 LAB L501.4305 45-117 U/L Normal ALK P 59 LAB L501.4405 13-56 U/L Normal ALT 28 LAB L501.4600 0.20-1.00 mg/dL Normal T BILI 0.20 LAB L501.4700 0.00-0.30 mg/dL Normal D BILI 0.10 Performed By: #### L500.2500, L500.3400 #### [facility] [address] [place], [address] EMERGENCY DEPARTMENT Observed: 09/28/2018 Status: F Source: [place] SUMMARY 3:04 PM [facility] REPOSITORY [facility] Medical Records Department [address] [place] [address] Emergency Department Summary 09/26/18 1307 MR#: [id number] Acct: [id number] Name: REBEKA MARES Rep #: [id number] : 1985 33 From: Ovidio Castillo MD PCP: Care Physician, No Primary Status: DIS J LUIS - ER Visit Summary Date of Service: 09/26/18 Chief Complaint: Abdominal pain and bulge above the umbilicus after coughing History of Present Illness: The patient is a 33 F with recurrent umbilical and midline ventral hernia who presents with abdominal pain, bulge with nausea vomiting and no flatus for the past 12-18 hours. She states last bowel movement yesterday morning and normal for her. She does report fever. She denies headache, visual, ocular auditory symptoms. She denies chest pain, shortness of breath, cough, hemoptysis or pleuritic chest pain. She denies hematemesis. She denies radiation of the pain. She denies dysuria, frequency, urgency or hematuria. She does appear uncomfortable and reports pain. Physical Examination: Vital signs noted and remarkable for a heart rate of 122 and blood pressure 170/89. Head is atraumatic normocephalic. Pupils are equal round reactive. Extraocular muscles are intact. TMs are pearly white with landmarks noted. Nares patent with no drainage. Posterior pharynx without erythema or exudate. Uvula is midline. There is no dysphonia or dysphasia. Trachea is midline. There is no stridor with auscultation of the neck. Heart is rapid and regular without murmur, gallop or rub. S1 and S2 are normal. Lungs are clear to auscultation with good movement of air bilaterally. Abdomen soft with fullness midline supraumbilical with significant discomfort with palpation. Unable to reduce mass. Bowel sounds are diminished. There is no tympany to percussion. There is no evidence of trauma. She is anxious and in discomfort. Neuro exam is nonfocal. Test Results: CT of the abdomen reveals a hernia with part of the transverse colon in the hernia. Radiologist did not comment on evidence of partial obstruction. The surgeon, Dr. Marcial reports partial small bowel obstruction. White count is normal. Electro panels unremarkable. Emergency Department Course and Treatment: Case was discussed with surgeon who requested CT of the abdomen without contrast. He informed me of read prior to radiologist read. He requested transfer to [facility] hernia service. Spoke with the surgeon on duty for the [facility]. He requested to speak with the surgeon. Message was left with charge nurse in the OR to contact [facility] transfer line and ask for Nancy. Treatment Plan: Awaiting callback from Dr. Marcial. Disposition: To the OR Impression: Incarcerated midline ventral hernia, transverse colon This note was generated with [employer] dictation software. It may contain incorrect words, spelling, and punctuation that were not noted in review of the chart prior to signing ED Disposition - Plan for ED Patient: Disposition: Acute Care Hospital [facility] Chief Complaint: Abd Pain What to do if you have Problems For any increased pain, shortness of breath, bleeding, nausea or vomiting, chest pain, or any unexpected problems, contact your Primary Care Provider. Call [facility] ([phone]) or report to the closest Emergency Room. Call 911 if necessary. 09/28/18 1504 <Electronically signed by Ovidio Castillo MD> Date Ovidio Castillo MD Cosigner Signature (If Indicated): Date CC: No Primary Care Physician DISCHARGE SUMMARY Observed: 09/28/2018 Status: F Source: [place] 9:10 AM [facility] REPOSITORY [facility] Medical Records Department [address] [place] [address] Discharge Summary 09/27/18 1524 MR#: [id number] Acct: [id number] Name: REBEKA MARES Rep #: [id number] : 1985 33 From: Heber Marcial MD PCP: Care Physician, No Primary Status: DIS J LUIS Y Location: [place] [address]-1 Discharge Date and Diagnosis Date of Admission: 09/26/18 Date of Discharge: 09/27/18 - Secondary Discharge Diagnosis Chronic Problems (Last Reviewed 07/27/18 @ 09:29 by Laura Lind) History of anxiety disorder (Chronic) GERD (gastroesophageal reflux disease) (Chronic) Partial small bowel obstruction (Chronic) Hospital Course and Treatment Imaging Results: Clinical Impression(s) from Imaging Studies Abdomen/Pelvis CT 09/26/18 11:06 IMPRESSION: Left periumbilical hernia containing a loop of transverse colon without evidence of complications Electronically Signed: Nick Armendariz DO at 12:20 EST Tel , Service support , Operations: - - Incarcerated ventral hernia repair Procedures: None Summary of Care Provided: The patient is a 33 year old F who presented with abdominal pain and inability to reduce recurrent ventral hernia. She was taken to the operating room emergently for a laparoscopic ventral hernia repair with mesh. The abdominal contents were reduced into the abdomen successfully. After surgery the patient was tolerating a diet and her diet was advanced. The following day once her pain was under control she was discharged home in stable condition. - Physical Exam Vital Signs Temp Pulse Resp BP Pulse Ox 98.1 F 86 16 147/82 H 96 09/27/18 13:50 09/27/18 13:50 09/27/18 13:50 09/27/18 13:50 09/27/18 13:50 Oxygen Flow Rate (L/min) 3 Oxygen Delivery Method Room Air Weight: 282 lb 13.649 oz Body Mass Index (BMI) 47.1 Finger Stick Blood Glucose 109 Intake and Output for Last 24 Hours Intake Total 1800 / 1800 2989 / 2989 Output Total 2700 / 2700 Balance 1800 / 1800 289 / 289 Laboratory Tests Past 24 Hrs WBC 14.4 H RBC 4.13 L Hgb 13.0 Hct 38.7 Discharge Diet: Light diet - advance as tolerated Discharge Activity: Return to Normal Activity, May Not Drive - for 2-3 days or while taking narcotic pain meds., May Shower - with the bandage in place 1-2 days after surgery. Additional Activity Instructions:: Climbing stairs is fine, walking is encouraged. Sitting in bed may be uncomfortable. Sitting up using your lateral muscles (sitting up sideways) is usually more comfortable. Do not drive, work heavy equipment of sign legal documents for 24 hours. Pain medications may cause nausea, you should typically eat light foods as you take your pain medications. Pain medications may also cause constipation. If you have difficulty with this, discuss with your doctor. Call your doctor if your incision/area has: Continuous Slow Oozing, Sudden Increased Bleeding, Increased Pain/ Swelling, Increased Redness, Foul Smelling Discharge Call your doctor if you observe: Fever of 101 or Higher Suture Line Care: Avoid Pulling/Pushing, Avoid Pinching/Bending Change Dressing in (Days):: 3 - Leave steri-strips for 1 week. May protect with a guaze bandaid. Cleanse incision/area with: Keep Dressing Clean AND Dry Home Medications: Medications to take at Discharge Acetaminophen [Tylenol] 1,000 mg PO Q6H PRN PRN 09/26/18 Oxycodone HCl/Acetaminophen [Percocet 5/325] 1 - 2 tablet PO Q4H PRN PRN 7 Days #50 tablet 09/27/18 Following Prescrptions Were Given to Patient: Oxycodone HCl/Acetaminophen [Percocet 5/325] 1 - 2 tablet PO Q4H PRN PRN 7 Days #50 tablet PRN Reason: Pain Primary Care Physician: Care Physician,No Primary [Primary Care Provider] - Please Follow Up With: Heber Marcial MD When: Please call to schedule 2 week follow up appointment. [phone] Medical Necessity - Tobacco Use Smoking Status: Former smoker Meaningful Use Info Meaningful Use Diagnoses (Choose all that apply): None applicable 09/28/18 0910 <Electronically signed by Heber Marcial MD> Date Heber Marcial MD Cosigner Signature (if applicable): Date CC: No Primary Care Physician; Heber Marcial MD Signed DISCHARGE INSTRUCTION Observed: 09/27/2018 Status: F Source: [place] 3:24 PM [facility] REPOSITORY [facility] Medical Records Department [address] [place] [address] Instructions for Home/Discharge Instructions 09/27/18 1523 MR#: [id number] Acct: [id number] Name: REBEKA MARES Rep #: [id number] : 1985 33 From: Heber Marcial MD PCP: Care Physician, No Primary Status: ADM J LUIS Discharge Diet: Light diet - advance as tolerated Discharge Activity: Return to Normal Activity, May Not Drive - for 2-3 days or while taking narcotic pain meds., May Shower - with the bandage in place 1-2 days after surgery. Lifting Restrictions: 20 pounds for 8 weeks. Additional Activity Instructions:: Climbing stairs is fine, walking is encouraged. Sitting in bed may be uncomfortable. Sitting up using your lateral muscles (sitting up sideways) is usually more comfortable. Do not drive, work heavy equipment of sign legal documents for 24 hours. Pain medications may cause nausea, you should typically eat light foods as you take your pain medications. Pain medications may also cause constipation. If you have difficulty with this, discuss with your doctor. Call your doctor if your incision/area has: Continuous Slow Oozing, Sudden Increased Bleeding, Increased Pain/ Swelling, Increased Redness, Foul Smelling Discharge Call your doctor if you observe: Fever of 101 or Higher Suture Line Care: Avoid Pulling/Pushing, Avoid Pinching/Bending Change Dressing in (Days):: 3 - Leave steri-strips for 1 week. May protect with a guaze bandaid. Cleanse incision/area with: Keep Dressing Clean AND Dry Allergies/Adverse Reactions: Allergies ketorolac tromethamine [From Toradol] Allergy (Verified 07/17/18 07:05) Shortness of breath ondansetron HCl [From Zofran] Allergy (Verified 07/17/18 07:05) Shortness of breath Medications to take at Discharge Acetaminophen [Tylenol] 1,000 mg PO Q6H PRN PRN 09/26/18 Oxycodone HCl/Acetaminophen [Percocet 5/325] 1 - 2 tablet PO Q4H PRN PRN 7 Days #50 tablet 09/27/18 The following prescriptions were given: Oxycodone HCl/Acetaminophen [Percocet 5/325] 1 - 2 tablet PO Q4H PRN PRN 7 Days #50 tablet PRN Reason: Pain Primary Care Physician: Care Physician,No Primary [Primary Care Provider] - Test Results: Test results from this visit will be discussed in further detail at your follow-up appointment, if applicable. Please Follow Up With: Heber Marcial MD When: Please call to schedule 2 week follow up appointment. [phone] 09/27/18 1528 <Electronically signed by Heber Marcial MD> Date Heber Marcial MD CC: No Primary Care Physician BASIC METABOLIC Collected: 09/27/2018 Status: F Source: [place] PROFILE (BMP) 7:52 AM [facility] REPOSITORY Order Comment: REDRAW. PREVIOUS SPECIMEN REJECTED DUE TO QNS. 09/27/18 0702 Karne Smith. TYPE CODE TESTS RESULT OUT OF RANGE REFERENCE UNITS LAB L501.0100 74-106 mg/dL High GLU 117 Result Comment: Fasting Glucose result from 100 to 125 mg/dL suggests IMPAIRED HOMEOSTASIS per A.D.A. criteria. Please note revised GLUCOSE reference range effective 2017. LAB L501.1000 7-18 mg/dL Low BUN 5 LAB L501.1100 0.55-1.02 mg/dL Normal CREAT,SERUM 0.55 Result Comment: The validity of the calculated GFR AND GFRAA in patients over 70 years has not been determined. Clinical correlation is essential. LAB L501.1110 >60 mL/min Normal EST GFR 134 Result Comment: Non- GFR Calc LAB L501.1115 >60 mL/min Normal EST GFR - AA 162 Result Comment: GFR Calc LAB L501.1255 ml/min Normal Estimated CRCL 125.63 LAB L501.1300 10-20 RATIO Low BUN/CRE 9.0 LAB L501.2200 8.5-10 mg/dL Low .1 CA 8.1 LAB L501.5300 136-14 mmol/L Low 5 NA 135 LAB L501.5600 3.5-5. mmol/L 1 K Normal 3.9 LAB L501.5900 98-107 mmol/L CL Normal 106 LAB L501.6100 21.0-3 mmol/L 2.0 CO2 Normal 21.0 LAB L501.6200 5-15 GAP Normal 8 Performed By: #### L500.2500 #### [facility] [address] [place], [address] CBC W/DIFF, AUTOMATED Collected: 09/27/2018 Status: F Source: [place] 7:52 AM [facility] REPOSITORY TYPE CODE TESTS RESULT OUT OF RANGE REFERENCE UNITS LAB L100.1000 4.4-11.0 K/mm3 High WBC 14.4 LAB L100.1200 4.2-5.4 M/mm3 Low RBC 4.13 LAB L100.1300 12.0-15.0 g/dl Normal HGB 13.0 LAB L100.1400 37-47 % Normal HCT 38.7 LAB L100.1500 81-99 fL Normal MCV 93.7 LAB L100.1600 27.0-32.0 pg Normal MCH 31.5 LAB L100.1700 32-36 g/gl Normal MCHC 33.6 LAB L100.1810 11.6-14.6 % Normal RDW CV 12.7 LAB L100.1820 35.1-43.9 fl Normal RDW SD 42.8 LAB L100.1900 150-450 K/mm3 Normal PLT 280 LAB L100.2000 6.2-12.0 fl Normal MPV 9.2 LAB L100.2100 47-70 % High NEUT% 81.5 LAB L100.2200 19-41 % Low LY% 9.9 LAB L100.2300 0-10 % Normal MONO% 7.7 LAB L100.2400 0-5 % Normal EO% 0.1 LAB L100.2500 0-1 % Normal BASO% 0.1 LAB L100.2550 0.0-0.9 % Normal IM GRAN % 0.700 Result Comment: IG% - Immature Granulocytes (promyelocytes, myelocytes and metamyelocytes) > 1% indicates that a LEFT SHIFT is Present. LAB L100.2620 2.0-7.7 X10 3/uL High Absolute Neut 11.8 LAB L100.2720 0.83-4.51 X10 3/ul Normal Absolute Lymph 1.43 Performed By: #### L100.0100 #### [facility] [address] [facility] [place], [address] OPERATIVE REPORT Observed: 09/26/2018 Status: F Source: [place] 5:14 PM [facility] REPOSITORY [facility] Medical Records Department [address] [place] [address] Operative Report 09/26/18 1709 MR#: [id number] Acct: [id number] Name: REBEKA MARES Rep #: [id number] : 1985 33 From: Heber Marcial MD PCP: Care Physician, No Primary Status: [facility] Y Location: [address] Problem List (1) Recurrent ventral hernia with incarceration Status: Acute Report of Operation Date of Procedure: 09/26/18 Pre-Operative Diagnosis: Recurrent incarcerated ventral hernia Post-Operative Diagnosis: Same Surgery/Procedure Performed:: Laparoscopic recurrent incarcerated ventral hernia repair with mesh Type of Anesthesia:: General Estimated Blood Loss (mL): 50 cc Description of Procedure: Patient was brought back to the operating room and general anesthesia was induced. The patient's abdomen was prepped and draped in normal sterile fashion. Next a left lateral incision was made in the abdomen just superior to the umbilicus. Using Visiport technique a 5 mm port was placed in the left abdomen. Once the abdomen was entered the abdomen was insufflated to 15 mmHg and inspected. There were dense adhesions but there is no injury upon entry to the abdomen. Next under direct visualization 2 more ports were placed in the left upper quadrant. Using sharp dissection the loose adhesions were taken down. Next the hernia was identified and the colon was entering the hernia from the right side and then exiting the hernia. This was dissected free sharply without any injury to the transverse colon. Once all the contents were dissected free from the anterior abdominal wall the colon was inspected and appeared to be intact. The hernia was inspected and measuring appear to measure 6 cm in diameter. Next an incision was made in the right lateral abdomen and a 12 mm port was placed through this. A [address] mesh with echo positioning device was selected. The mesh was rolled and placed into the abdomen through the 12 mm port. A small clyde was made with scalpel over the center of the hernia and a David Hahn needle was used to bring the loop of the balloon anterior and the balloon was insufflated. Next using a secure strap tacker the 4 corners of the mesh were secured and then the balloon was removed from the abdomen and it was intact. Next the secure strap tacker was used to tack the mesh circumferentially and 2 rows. The mesh ended up very flat and covered the entire defect with good overlay. Next the 12 mm port was removed and using a David Hahn needle and an 0 Vicryl suture a [id number] was placed into the fascia and this defect was closed. Next the left abdominal ports were removed. The air was allowed to exit the abdomen. Next the incisions were anesthetized with Marcaine and closed with interrupted 4-0 Monocryl sutures. Steri-Strips and bandages were then applied. The patient was awoken and taken to PACU in stable condition. The patient tolerated the procedure well. Grafts/Implants Used: [address] mesh - Admit VTE Documentation VTE Present on Admission: No VTE Mechan Device Prophylaxis: SCD's 09/26/181713 <Electronically signed by Heber Marcial MD> Date Heber Marcial MD CC: No Primary Care Physician; Heber Marcial MD Signed HISTORY AND PHYSICAL Observed: 09/26/2018 Status: F Source: [place] EXAM 2:58 PM [facility] REPOSITORY [facility] Medical Records Department [address] [place] [address] History and Physical 09/26/18 1451 MR#: [id number] Acct: [id number] Name: REBEKA MARES Rep #: [id number] : 1985 33 From: Heber Marcial MD PCP: Care Physician, No Primary Status: REG SDC Y Location: MS2 UP232-3 Problem List (1) Recurrent ventral hernia with incarceration Status: Acute History of Present Illness Date of Admission: 09/26/18 Chief Complaint: Abdominal pain The patient is a 33 year old F who has had several ventral hernia surgeries. The patient reports that for the last few days she has been coughing a lot and that she has felt a sharp tear in her abdomen and the pain has increased. She is not being able to go to the bathroom. She has been having nausea but no vomiting. She describes fever at home. She had what sounds to be a Blanca-en-Y as her initial ventral surgery. She had a ventral hernia repaired 2-3 years ago. She presented to the emergency room about 1 year ago and I repaired her ventral hernia with incarceration using sutures. She then presented to [facility] on May and had her hernia repaired once more there. She now repeats with recurrence and incarceration of the hernia containing transverse colon. In the meantime she also had an umbilical hernia repair with mesh by Dr. Miles Past Medical History Past Medical History (Chronic Problems): Chronic Problems (Last Reviewed 07/27/18 @ 09:29 by Laura Lind) History of anxiety disorder (Chronic) GERD (gastroesophageal reflux disease) (Chronic) Partial small bowel obstruction (Chronic) Medical History: Medical History (Last Reviewed 07/27/18 @ 09:29 by Laura Lind) History of anxiety disorder (Chronic) Z86.59 GERD (gastroesophageal reflux disease) (Chronic) K21.9 Partial small bowel obstruction (Chronic) Vomiting (Acute) R11.10 Allergies ketorolac tromethamine [From Toradol] Allergy (Verified 07/17/18 07:05) Shortness of breath ondansetron HCl [From Zofran] Allergy (Verified 07/17/18 07:05) Shortness of breath Home Medications: Ambulatory Orders Medication Instructions Recorded Acetaminophen [Tylenol Extra 1,000 mg PO Q6H PRN PRN 09/26/18 Strength] Surgical History: Surgical History (Last Reviewed 07/27/18 @ 09:29 by Laura Lind) Recurrent ventral hernia with incarceration (Acute) K43.0 Surgical History: appendectomy, cholecystectomy, - - 3 sections, some type of bilateral reflux surgery dealing with the small bowel, 3 recurrent ventral hernia repairs about 10 cm above the umbilicus-last one was done June 09, 2018. 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 Denies: Depression Hematologic/ Lymphatic: Denies: Easy Bruising VTE Information - Inpt Only VTE Present on Admission: No VTE Mechan Device Prophylaxis: SCD's - Physical Exam General: Alert, Oriented x3, Cooperative HEENT: Atraumatic, PERRLA, EOMI Neck: No JVD Lungs: Normal air movement Cardiovascular: Regular Rhythm, Tachycardic Abdomen: Soft, Obese, Tender Extremities: No clubbing Skin: No rashes Musculoskeletal: No Muscle Wasting Lymphatic: No Cervical, Supraclavicular, or Inguinal Adenopathy Neurological: Cranial nerves II-XII grossly intact Psych/Mental Status: Normal Affect, Appropriate, Anxious Vital Signs Temp Pulse Resp BP Pulse Ox 97.8 F 117 H 16 148/88 H 97 09/26/18 14:14 09/26/18 14:14 09/26/18 14:14 09/26/18 14:14 09/26/18 14:14 Oxygen Delivery Method Room Air Weight: 283 lb Body Mass Index (BMI) 47.0 Finger Stick Blood Glucose 109 Laboratory Tests Past 24 Hrs WBC 11.4 H RBC 4.88 Hgb 15.4 H Hct 44.8 MCV 91.8 MCH 31.6 MCHC 34.4 Clinical Impression(s) from Imaging Studies Abdomen/Pelvis CT 09/26/18 11:06 IMPRESSION: Left periumbilical hernia containing a loop of transverse colon without evidence of complications Electronically Signed: Nick Armendariz DO at 12:20 EST Tel , Service support , Assessment/Plan All Active Problems (Last Reviewed 07/27/18 @ 09:29 by Laura Lind) Vomiting (Acute) Recurrent ventral hernia with incarceration (Acute) 33-year-old patient with incarcerated recurrent ventral hernia 1. The patient reports that she has had this hernia for a few days and she is not able to go to the bathroom. She is complaining of sharp pain at the hernia site. She has had nausea but no vomiting. 2. CT scan shows transverse colon in the hernia site. WBC count is elevated and the patient is tachycardic. I was not able to reduce the hernia in the emergency room. I believe the patient needs emergency surgery to reduce the bowel and possibly repair the hernia. 3. I explained to the patient that she has had 3 recurrences of this hernia. I do not know if I will be able to use mesh for repair as it depends on if a bowel resection is warranted or if there is inflammation of the bowel. I explained the risks of the procedure including but not limited to bleeding, infection, injury to underlying bowel, stoma creation, bowel resection. 4. I plan on performing an exploratory laparoscopy to see if I can reduce the contents of the hernia. If I am able to repair the hernia laparoscopically I will. If not I will convert to an open procedure and possibly placed an onlay mesh depending on the condition of the bowel. Heber Marcial MD Pager: [facility] [address] [place] [address], [address] [place] [address] Office: 09/26/18 5581 <Electronically signed by Heber Marcial MD> Date Heber Marcial MD Cosigner Signature: Date (if applicable) CC: No Primary Care Physician; Heber Marcial MD Signed ,URINE Collected: 09/26/2018 Status: F Source: [place] 2:43 PM [facility] REPOSITORY TYPE CODE TESTS RESULT OUT OF REFERENCE UNITS RANGE LAB L400.8000 Negative Normal HCGUQUAL Negative Result Comment: Very dilute urine specimens, as indicated by a low specific gravity, may not contain fundraising sale representative levels of hCG. If is still suspected, a first morning urine specimen should be collected 48 hours later and tested. Performed By: #### L400.7600 #### [facility] [place], [address] CBC W/DIFF, AUTOMATED Collected: 09/26/2018 Status: F Source: [place] 11:10 AM [facility] REPOSITORY TYPE CODE TESTS RESULT OUT OF RANGE REFERENCE UNITS LAB L100.1000 4.4-11.0 K/mm3 High WBC 11.4 LAB L100.1200 4.2-5.4 M/mm3 Normal RBC 4.88 LAB L100.1300 12.0-15.0 g/dl High HGB 15.4 LAB L100.1400 37-47 % Normal HCT 44.8 LAB L100.1500 81-99 fL Normal MCV 91.8 LAB L100.1600 27.0-32.0 pg Normal MCH 31.6 LAB L100.1700 32-36 g/gl Normal MCHC 34.4 LAB L100.1810 11.6-14.6 % Normal RDW CV 13.0 LAB L100.1820 35.1-43.9 fl Normal RDW SD 42.7 LAB L100.1900 150-450 K/mm3 Normal PLT 319 LAB L100.2000 6.2-12.0 fl Normal MPV 9.1 LAB L100.2100 47-70 % High NEUT% 71.3 LAB L100.2200 19-41 % Low LY% 18.6 LAB L100.2300 0-10 % Normal MONO% 7.1 LAB L100.2400 0-5 % Normal EO% 1.8 LAB L100.2500 0-1 % Normal BASO% 0.2 LAB L100.2550 0.0-0.9 % High IM GRAN % 1.000 Result Comment: IG% - Immature Granulocytes (promyelocytes, myelocytes and metamyelocytes) > 1% indicates that a LEFT SHIFT is Present. LAB L100.2620 2.0-7.7 X10 3/uL High Absolute Neut 8.2 LAB L100.2720 0.83-4.51 X10 3/ul Normal Absolute Lymph 2.12 Performed By: #### L100.0100 #### [facility] [address] [place], [address] BASIC METABOLIC Collected: 09/26/2018 Status: F Source: [place] PROFILE (BMP) 11:10 AM [facility] REPOSITORY TYPE CODE TESTS RESULT OUT OF RANGE REFERENCE UNITS LAB L501.0100 74-106 mg/dL High GLU 108 Result Comment: Fasting Glucose result from 100 to 125 mg/dL suggests IMPAIRED HOMEOSTASIS per A.D.A. criteria. Please note revised GLUCOSE reference range effective 2017. LAB L501.1000 7-18 mg/dL Normal BUN 9 LAB L501.1100 0.55-1.02 mg/dL Normal CREAT,SERUM 0.71 Result Comment: The validity of the calculated GFR AND GFRAA in patients over 70 years has not been determined. Clinical correlation is essential. LAB L501.1110 >60 mL/min Normal EST GFR 100 Result Comment: Non- GFR Calc LAB L501.1115 >60 mL/min Normal EST GFR - AA 121 Result Comment: GFR Calc LAB L501.1255 ml/min Normal Estimated CRCL 101.41 LAB L501.1300 10-20 RATIO BUN/CRE Normal 12.6 LAB L501.2200 8.5-10 mg/dL .1 CA Normal 9.5 LAB L501.5300 136-14 mmol/L 5 NA Normal 138 LAB L501.5600 3.5-5. mmol/L 1 K Normal 4.0 LAB L501.5900 98-107 mmol/L CL Normal 105 LAB L501.6100 21.0-3 mmol/L 2.0 CO2 Normal 22.0 LAB L501.6200 5-15 GAP Normal 11 Performed By: #### L500.2500 #### [facility] [address] [place], [address] ABDOMEN/PELVIS WITHOUT Observed: 09/26/2018 Status: F Source: [place] CONT 11:08 AM [facility] REPOSITORY [facility] Imaging Services [address] [place] [address] Abdomen/Pelvis without Cont MR#: [id number] Acct: [id number] Name: REBEKA MARES Rep #: [id number] : 1985 F 33 From: Nick Armendariz DO PCP: Care Physician, No Primary Status: REG ER Study: Abdomen/Pelvis without Cont Date of Exam: 09/26/18 Exam# [id number] Ordering Dr: Ovidio Castillo MD STUDY: CT ABDOMEN AND PELVIS WITHOUT CONTRAST REASON FOR EXAM: Female, 33 years old. Bulge surrounding the umbilicus RADIATION DOSAGE (If Supplied By Facility): CTDIvol = ( 34.00 ) mGy, DLP = ( 1834.81 ) mGycm TECHNIQUE: Transaxial images were obtained from the dome of the diaphragm to the symphysis pubis without oral contrast, and without intravenous contrast. Sagittal and coronal images were reconstructed. Individualized dose optimization techniques were used for this CT. COMPARISON: None. FINDINGS: The visualized lung bases are unremarkable. The visualized portions of the heart are within normal limits. Normal liver. There is non-visualization of the gallbladder, which may be secondary to either contraction or a prior cholecystectomy. Normal spleen. Normal pancreas. Normal bilateral adrenal glands. Normal right kidney. Normal left kidney. Normal visualized stomach. Normal small intestine. Normal colon. There is non-visualization of the appendix. Normal abdominal aorta. Normal inferior vena cava. Normal retroperitoneum. Normal urinary bladder. Normal visualized uterus. Bilateral tubal ligation clips Left periumbilical hernia containing loop of transverse colon without evidence of incarceration or strangulation. No evidence of bowel obstruction. Normal osseous structures. CT/Abdomen/Pelvis without Cont IMPRESSION: Left periumbilical hernia containing a loop of transverse colon without evidence of complications Electronically Signed: Nick Armendariz DO at 12:20 EST Tel , Service support , CC: No Primary Care Physician; Ovidio Castillo MD Warehouse Delivery Manager: Signed SURGERY VISIT REPORT Observed: 07/27/2018 Status: F Source: [place] 10:35 AM [facility] REPOSITORY [facility] [address] [place] [address]. [address] [place] [address] OFFICE VISIT Date of Service: 07/27/18 MR#: [id number] Acct: [id number] Name: REBEKA MARES Rep #: [id number] : 1985 Provider: Rosetta Miles MD Age/Sex: 33/F Location: [facility] Status: Signed Intake Vital Signs07/27/18 Height 5 ft 5 in 07/27/18 Blood Pressure Location Lt brachial Intake Visit Reasons: Incarcerated Hernia Repair 07/12 Angular Js Developer Required: No Accompanied by: None Is patient in pain?: Yes (lower right abdomen) Pain scale (1-10): 8 Allergies ketorolac tromethamine [From Toradol] Allergy (Verified 07/17/18 07:05) Shortness of breath ondansetron HCl [From Zofran] Allergy (Verified 07/17/18 07:05) Shortness of breath Medications Mv-Min/Iron/Folic/Calcium/Vitk [Women's Daily Formula Tablet] 1 ea PO DAILY 10/19/17 [History Confirmed 07/11/18] Melatonin 3 mg PO QHS 03/20/18 [History Confirmed 07/11/18] Oxycodone HCl/Acetaminophen [Percocet 5-325] 1 tab PO Q4H PRN PRN 07/11/18 [History Confirmed 07/11/18] proMETHazine tablet [Phenergan tablet] 25 mg PO Q6H PRN PRN 07/11/18 [History Confirmed 07/11/18] Metoclopramide [Reglan] 10 mg PO 4X/DAY PRN #20 tab 07/17/18 [Rx] PFSH Medical History History of anxiety disorder (Chronic) GERD (gastroesophageal reflux disease) (Chronic) Partial small bowel obstruction (Chronic) Vomiting (Acute) Surgical History Recurrent ventral hernia with incarceration (Acute) Social History Smoking Status: Unknown if ever smoked how long ago did patient quit smokin years HPI HPI HPI: REBEKA MARES, is a 33 F who presents to the office today for follow-up status post incisional hernia repair with mesh on July 12/2018. Patient reports about 2-3 days after surgery and having right lower quadrant pain which is not at the area of the incision. She did take some magnesium citrate and was able to have a bowel movement. However the pain did not improve and did go to the ER and had a CT abdomen pelvis done which did not show any acute findings even in the right lower quadrant and patient had previously had an appendectomy as well. Patient was sent home with pain meds. States she ran out of her pain meds on Tuesday and she has been trying to take some ibuprofen also trying to limit that she knows it can be bad for you long-term. Exam Const General: cooperative, comfortable GI Inspection: normal to inspection Palpation: soft, no guarding, no hernias, tender (Right lower quadrant lateral to incisional hernia incision) Other: Incision healing well, no erythema, no pain at incision site Assessment AND Plan Problems 1. History of incisional hernia repair Z98.890; Z87.19 2. RLQ abdominal pain R10.31 Plan Patient is status post incisional hernia repair with mesh just to the right of the umbilicus on 07/12/18. Patient states she has a pulling sensation in the right lower quadrant since a couple days after surgery she denies any pain at the surgery site currently states she may have some nausea along with that pulling sensation otherwise has been able to tolerate diet has bowel function. Discussed with Dr. Pradhan he will see today and possibly do a nerve block in the right lower quadrant as this is lateral to her incisional hernia repair and the pain is also worse with twisting motion I think it would likely be musculoskeletal. Patient has been tolerating a diet and also having bowel function but she does admit to some nausea when the pain starts. Rosetta Miles M.D. Pager: [phone] [facility] [address] [place] [address], [address] [place] [address] Office: [phone] Orders Referrals: Plan Detail Follow Up prn Coding Level of Care Code Global Post Op Diagnoses History of incisional hernia repair Z98.890; Z87.19 RLQ abdominal pain R10.31 07/27/18 1035 <Electronically signed by Rosetta Miles MD> Date Rosetta Miles MD [facility] Signature: Date (if applicable) CC: Kelly Pradhan MD 12 LEAD ELECTROCARDIOGRAM Observed: 07/20/2018 Status: F Source: [place] 2:32 PM [facility] [address] [place] [address] 12 Lead EKG 07/12/18 0536 MR#: [id number] Acct: [id number] Name: REBEKA MARES Rep #: [id number] : 1985 33 From: Piero Mendiola MD Attending Dr: Rosetta Miles MD Status: DIS J LUIS Ordering Dr: Rosetta Miles MD Date: 07/12/18 Location: [facility] Sex: F C Admitted: 07/11/18 Test Reason : MORNING EKG Blood Pressure : / mmHG Vent. Rate : 080 BPM Atrial Rate : 080 BPM P-R Int : 154 ms QRS Dur : 096 ms QT Int : 408 ms P-R-T Axes : 047 055 013 degrees QTc Int : 470 ms Normal sinus rhythm Confirmed by VINI DODD, PIERO ([id number]), manuscript editor KEZIA BARKER ([id number]) on 07/20/2018 2:32:14 PM Referred By: JUAN Confirmed By:PIERO MENDIOLA MD 07/20/18 143 Date Piero Mendiola MD CC: No Primary Care Physician; Rosetta Miles MD Signed EMERGENCY DEPARTMENT Observed: 07/17/2018 Status: F Source: [place] SUMMARY 6:01 PM [facility] REPOSITORY [facility] Medical Records Department [address] [place] [address] Emergency Department Summary 07/17/18 0713 MR#: [id number] Acct: [id number] Name: REBEKA MARES Rep #: [id number] : 1985 33 From: Michelle Orourke MD PCP: Care Physician, No Primary Status: DEP ER - ER Visit Summary Date of Service: 07/17/18 Chief Complaint: Abdominal pain History of Present Illness: The patient is a 33 F who went to the OR on July 12 for an incarcerated incisional hernia. Patient reports a pulling sensation in the right lower quadrant since the time of surgery. Her pain along with nausea and vomiting have been worse since 4 AM this morning. She reports subjective fevers and chills. Her last bowel movement was yesterday. She has had prior appendectomy and cholecystomy. She has had a prior partial small bowel obstruction. Physical Examination: Blood pressure is 165/89, temperature 97.9, heart rate 128, respiratory rate 20, pulse ox 97% on room air. Patient sitting upright in bed. She is tearful but in no acute distress. Head neck examination normal. Heart is tachycardic and regular. Lung sounds are clear. Abdomen is soft with tenderness in the right lower quadrant. Her periumbilical incision is dry with some dried blood noted. There is no sign of acute infection. She is appropriate postop tenderness around the incision site. Hypoactive bowel sounds are noted. Test Results: CBC is unremarkable. Chemistry studies are significant for potassium 3.1. Glucose is 133. LFTs normal. Urinalysis normal. CT abdomen pelvis with contrast reveals appropriate postsurgical features in the anterior abdominal wall. No acute intra-abdominal process is noted. Emergency Department Course and Treatment: Patient was given morphine and Zofran along with IV fluids. This is followed by Reglan and Awal for continued nausea. She did receive a single dose of Dilaudid 0.5 mg for continued pain. Patient was given potassium replacement IV. CT scan was discussed with Dr. Miles, her surgeon. Dr. Miles feels the patient still has a lot of stool in the right lower quadrant likely causing her pain. She was intended to use fleets enema or Dulcolax suppositories and to try mag citrate [id number]. This was discussed with the patient. Treatment Plan: [] Disposition: Discharge Impression: Postop abdominal pain This note was generated with [employer] dictation software. It may contain incorrect words, spelling, and punctuation that were not noted in review of the chart prior to signing ED Disposition - Plan for ED Patient: Disposition: Home or Assisted Living Chief Complaint: Abd Pain Instructions: ED Post Op Pain Prescriptions: Oxycodone HCl/Acetaminophen [Percocet 5/325] 1 tablet PO Q6H PRN PRN 5 Days #20 tablet PRN Reason: Pain Metoclopramide [Reglan] 10 mg PO 4X/DAY PRN #20 tablet PRN Reason: Nausea Referrals: Rosetta Miles MD [STAFF PHYSICIAN] - Keep [facility] appointment What to do if you have Problems For any increased pain, shortness of breath, bleeding, nausea or vomiting, chest pain, or any unexpected problems, contact your Primary Care Provider. Call [facility] ([phone]) or report to the closest Emergency Room. Call 911 if necessary. 07/17/18 1801 <Electronically signed by Michelle Orourke MD> Date Michelle Orourke MD Cosigner Signature (If Indicated): Date CC: No Primary Care Physician DISCHARGE INSTRUCTION Observed: 07/17/2018 Status: F Source: [place] 12:53 PM [facility] REPOSITORY [facility] Medical Records Department [address] [place] [address] Discharge Instruction 07/17/18 1250 MR#: [id number] Acct: [id number] Name: REBEKA MARES Rep #: [id number] : 1985 33 From: Michelle Orourke MD PCP: Care Physician, No Primary Status: REG ER ED Disposition - Plan for ED Patient: Disposition: Home or Assisted Living Chief Complaint: Abd Pain Instructions: ED Post Op Pain Prescriptions: Oxycodone HCl/Acetaminophen [Percocet 5/325] 1 tablet PO Q6H PRN PRN 5 Days #20 tablet PRN Reason: Pain Metoclopramide [Reglan] 10 mg PO 4X/DAY PRN #20 tablet PRN Reason: Nausea Referrals: Rosetta Miles MD [STAFF PHYSICIAN] - Keep [facility] appointment What to do if you have Problems For any increased pain, shortness of breath, bleeding, nausea or vomiting, chest pain, or any unexpected problems, contact your Primary Care Provider. Call [facility] ([phone]) or report to the closest Emergency Room. Call 911 if necessary. 07/17/18 1253 <Electronically signed by Michelle Orourke MD> Date Michelle Orourke MD Cosigner Signature (If Indicated): Date CC: No Primary Care Physician URINALYSIS, COMPLETE Collected: 07/17/2018 Status: F Source: [place] 8:50 AM [facility] REPOSITORY Order Comment: Order Date: 07/17/18 How was Urine Obtained? CLEAN CATCH TYPE CODE TESTS RESULT OUT OF RANGE REFERENCE UNITS LAB L400.3000 Yellow COLOR Normal Yellow LAB L400.3050 Clear Normal CLARITY Sl. Cloudy LAB L400.3200 Normal mg/dl Normal GLUCOSE, UR Normal LAB L400.3300 Negative mg/dL Normal BILIRUBIN URINE Negative LAB L400.3400 Negative mg/dl Normal KETONE UR Negative LAB L400.3465 1.002-1.030 Normal SP.GR. DIPSTX 1.010 LAB L400.3550 5.0 - 8.0 pH UR Normal 7.0 LAB L400.3600 Negative mg/dl PROT Normal DIPSTX Negative LAB L400.3700 Normal mg/dl Normal UROBILI Normal LAB L400.3750 Negative Normal NITRITE UR Negative LAB L400.3780 Negative /ul Normal OCCULT BLOOD-UR Negative LAB L400.3800 Negative /ul LEUK Normal ESTERASE Negative LAB L400.4050 0-5 /hpf WBC 0 Normal SEEN LAB L400.4100 0-5 /hpf 0 Normal RBC-UA SEEN LAB L400.4150 5-10 /hpf SQUAM Normal EPI 5-10 SEEN LAB L400.4300 None Seen /hpf 0 Normal BACTERIA SEEN LAB L400.4350 <or=2+ /hpf 0 Normal MUCUS, URINE SEEN Performed By: #### L400.0001 #### [facility] [place], [address] CBC W/DIFF, AUTOMATED Collected: 07/17/2018 Status: F Source: [place] 7:15 AM [facility] REPOS[facility] TYPE CODE TESTS RESULT OUT OF RANGE REFERENCE UNITS LAB L100.1000 4.4-11.0 K/mm3 Normal WBC 10.8 LAB L100.1200 4.2-5.4 M/mm3 Normal RBC 4.40 LAB L100.1300 12.0-15.0 g/dl Normal HGB 13.3 LAB L100.1400 37-47 % Normal HCT 40.9 LAB L100.1500 81-99 fL Normal MCV 93.0 LAB L100.1600 27.0-32.0 pg Normal MCH 30.2 LAB L100.1700 32-36 g/gl Normal MCHC 32.5 LAB L100.1810 11.6-14.6 % Normal RDW CV 13.2 LAB L100.1820 35.1-43.9 fl Normal RDW SD 43.5 LAB L100.1900 150-450 K/mm3 Normal PLT 264 LAB L100.2000 6.2-12.0 fl Normal MPV 8.5 LAB L100.2100 47-70 % Normal NEUT% 64.1 LAB L100.2200 19-41 % Normal LY% 26.4 LAB L100.2300 0-10 % Normal MONO% 5.2 LAB L100.2400 0-5 % Normal EO% 2.5 LAB L100.2500 0-1 % Normal BASO% 0.3 LAB L100.2550 0.0-0.9 % High IM GRAN % 1.500 Result Comment: IG% - Immature Granulocytes (promyelocytes, myelocytes and metamyelocytes) > 1% indicates that a LEFT SHIFT is Present. LAB L100.2620 2.0-7.7 X10 3/uL Normal Absolute Neut 7.0 LAB L100.2720 0.83-4.51 X10 3/ul Normal Absolute Lymph 2.86 Performed By: #### L100.0100 #### [facility] [address] [place], [address] BASIC METABOLIC Collected: 07/17/2018 Status: F Source: [place] PROFILE ([place]) 7:15 AM [facility] REPOS[facility] TYPE CODE TESTS RESULT OUT OF RANGE REFERENCE UNITS LAB L501.0100 74-106 mg/dL High GLU 133 Result Comment: Fasting Glucose result greater than or equal to 126 mg/dL suggests DIABETES MELLITUS per A.D.A. criteria. Please note revised GLUCOSE reference range effective 2017. LAB L501.1000 7-18 mg/dL Low BUN 6 LAB L501.1100 0.55-1.02 mg/dL Normal CREAT,SERUM 0.68 Result Comment: The validity of the calculated GFR AND GFRAA in patients over 70 years has not been determined. Clinical correlation is essential. LAB L501.1110 >60 mL/min Normal EST GFR 105 Result Comment: Non- GFR Calc LAB L501.1115 >60 mL/min Normal EST GFR - AA 127 Result Comment: GFR Calc LAB L501.1255 ml/min Normal Estimated CRCL 105.89 LAB L501.1300 10-20 RATIO Low BUN/CRE 8.8 LAB L501.2200 8.5-10 mg/dL .1 CA Normal 8.5 LAB L501.5300 136-14 mmol/L 5 NA Normal 140 LAB L501.5600 3.5-5. mmol/L Low 1 K 3.1 LAB L501.5900 98-107 mmol/L CL Normal 105 LAB L501.6100 21.0-3 mmol/L 2.0 CO2 Normal 23.0 LAB L501.6200 5-15 GAP Normal 12 Performed By: #### L500.2500, L500.3400 #### [facility] [address] [place], [address] LIVER PROFILE Collected: 07/17/2018 Status: F Source: [place] 7:15 AM [facility] TYPE CODE TESTS RESULT OUT OF RANGE REFERENCE UNITS LAB L501.1500 6.4-8.2 g/dL Normal T PROT 6.9 LAB L501.1800 3.2-5.0 g/dL Normal ALB 3.5 LAB L501.1950 2.2-4.2 g/dL Normal GLOB 3.4 LAB L501.4100 15-37 U/L Low AST 10 LAB L501.4305 45-117 U/L Normal ALK P 57 LAB L501.4405 13-56 U/L Normal ALT 21 LAB L501.4600 0.20-1.00 mg/dL Normal T BILI 0.20 LAB L501.4700 0.00-0.30 mg/dL Normal D BILI 0.05 Performed By: #### L500.2500, L500.3400 #### [facility] [address] [place], [address] ABDOMEN/PELVIS WITH Observed: 07/17/2018 Status: F Source: [place] CONTRAST 7:10 AM [facility] REPOS[facility]ORY [facility] Imaging Services [address] [facility] [place] [address] Abdomen/Pelvis WITH Contrast MR#: [id number] Acct: [id number] Name: REBEKA MARES Miki Rep #: [id number] : 1985 F 33 From: Eros Peraza MD PCP: Care Physician, No Primary Status: REG ER Study: Abdomen/Pelvis WITH Contrast Date of Exam: 07/17/18 Exam# [id number] Ordering Dr: Michelle Orourke MD STUDY: CT ABDOMEN AND PELVIS WITH CONTRAST REASON FOR EXAM: Female, 33 years old. Recent hernia repair. Vomiting and pain. Prior tubal ligation and cholecystectomy. RADIATION DOSAGE (If Supplied By Facility): CTDIvol = ( 17.60 ) mGy, DLP = ( 1177.95 ) mGycm TECHNIQUE: Transaxial images were obtained from the dome of the diaphragm to the symphysis pubis without oral contrast. 100ML ml of Isovue 300 contrast was administered. Sagittal and coronal images were reconstructed. Individualized dose optimization techniques were used for this CT. COMPARISON: CT abdomen and pelvis 07/11/2018, 2018, 03/20/2018 FINDINGS: Body wall soft tissues: ] Are midline abdominal wall incision, with some induration in the adjacent fat, without organized hematoma/abscess/seroma. Consistent with recent hernia repair. Osseous structures: No acute process. Inferior chest: No acute process. Hepatobiliary: Hepatic steatosis with hepatomegaly, craniocaudal right liver 25 cm. Gallbladder absent. Nondilated biliary tree. Pancreas: No acute process. Spleen: Normal. Adrenal glands: Normal. Urogenital: A small low-density cystlike focus of the right kidney mid polar cortex measuring about 9.5 mm is unchanged compared to prior imaging as far back as 10/19/2017. Unremarkable kidneys, collecting systems, ureters, urinary bladder, anteverted uterus. Tubal ligation clips bilaterally. No adnexal mass or cyst. No cul-de-sac free fluid. Pelvic floor and sidewalls and retroperitoneum: No mass or adenopathy. Vasculature: No acute process. Stomach: No acute process. Small bowel and mesentery: No acute process. Large bowel: The appendix is not visible, and may be surgically absent. There are no acute inflammatory features in the region of the cecum. The large bowel and rectum are normal. Free fluid or free air: None. CT/Abdomen/Pelvis WITH Contrast IMPRESSION: Appropriate postsurgical features of the anterior abdominal wall. No acute intra-abdominal process is evident. Hepatic steatosis with hepatomegaly. Electronically Signed: Eros Peraza, at 11:56 EDT Tel , Service support , CC: No Primary Care Physician; Michelle Orourke MD Warehouse Delivery Manager: Signed DISCHARGE INSTRUCTION Observed: 07/12/2018 Status: F Source: [place] 12:50 PM [facility] Medical Records Department [address] [place] [address] Instructions for Home/Discharge Instructions 07/12/18 1245 MR#: [id number] Acct: [id number] Name: REBEKA MARES Rep #: [id number] : 1985 33 From: Rosetta Miles MD PCP: Care Physician, No Primary Status: ADM J LUIS Discharge Diet: Light diet - advance as tolerated Discharge Activity: May not drive while taking narcotic pain medications. May shower in (days): 1 Lifting Restrictions: No lifting greater than 20 pounds for 4 weeks Call your doctor if your incision/area has: Continuous Slow Oozing, Sudden Increased Bleeding, Increased Pain/ Swelling, Increased Redness, Foul Smelling Discharge, Swelling at the incision site Call your doctor if you observe: Fever of 101 or Higher Remove Dressing in (days):: 1 - Binder for comfort only Additional Instructions: Okay to take ibuprofen or Aleve/Advil with Percocet avoid taking Tylenol as there is already Tylenol in the Percocet. Take all pain meds with food. Caution Percocet may cause constipation. Take a daily stool softener. If do not have a bowel movement for 1-2 days would recommend taking several doses of MiraLAX throughout the day. If no bowel movement after the MiraLAX recommend taking half a bottle of magnesium citrate the next day waiting 6 hours and if no results take the other half of the bottle. Allergies/Adverse Reactions: Allergies ketorolac tromethamine [From Toradol] Allergy (Verified 06/22/18 11:32) Shortness of breath ondansetron HCl [From Zofran] Allergy (Verified 06/22/18 11:32) Shortness of breath Medications to take at Discharge Mv-Min/Iron/Folic/Calcium/Vitk [Women's Daily Formula Tablet] 1 ea PO DAILY 10/19/17 Melatonin 3 mg PO QHS 03/20/18 Oxycodone HCl/Acetaminophen [Percocet 5-325] 1 tab PO Q4H PRN PRN 07/11/18 proMETHazine tablet [Phenergan tablet] 25 mg PO Q6H PRN PRN 07/11/18 Oxycodone [Oxyir] 5 - 10 mg PO Q6H PRN PRN #25 tablet 07/12/18 Primary Care Physician: Care Physician,No Primary [Primary Care Provider] - Test Results: Test results from this visit will be discussed in further detail at your follow-up appointment, if applicable. Please Follow Up With: Rosetta Miles MD - After 5:00/weekends call [phone] with any concerns When: Call the office [phone] for a follow-up appointment in 2 weeks. Proposed Discharge Date: 07/12/18 07/12/18 1250 <Electronically signed by Rosetta Miles MD> Date Rosetta Miles MD CC: No Primary Care Physician OPERATIVE REPORT Observed: 07/12/2018 Status: F Source: [place] 12:45 PM [facility] REPOSITORY [facility] Medical Records Department [address] [place] [address] Operative Report 07/12/18 1236 MR#: [id number] Acct: [id number] Name: REBEKA MARES Rep #: [id number] : 1985 33 From: Rosetta Miles MD PCP: Care Physician, No Primary Status: ADM J LUIS Y Location: [place] [address] ADDENDUM by Rosetta Miles MD on 07/12/18 at 1245 Code Visit Mesh LOT number for the ventralex ST hernia patch medium tejon was [id number] 07/12/18 1245 <Electronically signed by Rosetta Miles MD> Date Rosetta Miles MD cc: No Primary Care Physician; Rosetta Miles MD * Signed Report of Operation Date of Procedure: 07/12/18 Pre-Operative Diagnosis: Incarcerated incisional hernia Post-Operative Diagnosis: Same Surgery/Procedure Performed:: Incarcerated incisional hernia repair with mesh concert or lecture hall manager: Paulina Galeana concert or lecture hall manager: Markus Avalos Type of Anesthesia:: General Anesthesiologist: Tim Rodarte Special Medications: Ancef 2 g IV x1 Specimen's removed: None Estimated Blood Loss (mL): <10 cc Fluids Replaced: 800 cc Description of Procedure: Patient was brought into the room placed supine on the operating table. Correct patient, procedure, site, positioning, special, was verified prior to procedure. General anesthesia was induced. The abdomen was prepped draped in usual sterile fashion. Her previous midline incision near to the right of her umbilicus was re-incised with a 15 blade scalpel. This was deepened with electrocautery. Once the fascia was reached the incarcerated hernia fat was freed from the fascia. The hernia that was unable to be reduced the fascia was incised to allow for the abdominal fat to return to the abdomen. The fascia around the hernia defect was cleared and the hernia defect measured 2 cm x 1.[address] hernia patch medium tejon (6.4 cm) was placed, which also covered the umbilical hernia area that was reduced through this incisional hernia defect. The ventralex mesh was secured with 0 Nurolon sutures at the tails with horizontal mattress sutures as well as superiorly and inferiorly and then the fascia was brought together with an 0 Nurolon [id number] suture. The wound was irrigated with saline. Hemostasis was assured. The incision was closed with 3-0 Vicryl subdermal interrupted sutures and the skin was closed with interrupted 4-0 Monocryl sutures. Steri-Strips and OpSite were placed over the incision. Patient was extubated Patient tolerated procedure well and was taken to the postanesthesia care unit in stable condition. - Complications none 07/12/18 1244 <Electronically signed by Rosetta Miles MD> Date Rosetta Miles MD CC: No Primary Care Physician; oRsetta Miles MD Signed HISTORY AND PHYSICAL Observed: 07/12/2018 Status: F Source: [place] EXAM 10:51 AM [facility] RE[facility] Medical Records Department [address] [place] [address] History and Physical 07/11/187 MR#: [id number] Acct: [id number] Name: REBEKA MARES Rep #: [id number] : 1985 33 From: Rosetta Miles MD PCP: Care Physician, No Primary Status: ADM J LUIS Y Location: [facility] [id number] History of Present Illness Date of Admission: 07/11/18 The patient is a 33 year old F presented to the ER due to abdominal pain to the right of the umbilicus. Patient states that pain started to worsen again this morning at 3 AM. She rates it at 9/10 currently. Patient also came to the ER on last , 07/06/18 and was transferred to [place] as she had her last ventral recurrent hernia repair there on June [address] Flores. Patient states she stayed at [place] until Tuesday night and she was referred to hernia specialist; however she does not have insurance and could not afford the co-pay. Patient did have nausea and vomiting today as well. She was unable to keep the oxycodone she had received from [place] down due to the nausea and vomiting. Patient has past medical history for some type of bile reflux surgery done by Dr. Rehman at [place]. Since then patient has had 3 emergency recurrent hernia surgeries for her ventral hernias at the site of her upper midline incision. She is unsure if the first person use mesh or not but the last [address] Marcial, no mesh, and then Dr. Flores, pt thinks no mesh. Patient states that she does not have pain at her previous recurrent hernia sites only to the right of her umbilicus. Patient denies passing flatus but did have a small bowel movement yesterday. However she states she has not been eating much at the hospital or after discharge from [place]. Past Medical History Past Medical History (Chronic Problems): Chronic Problems History of anxiety disorder (Chronic) GERD (gastroesophageal reflux disease) (Chronic) Partial small bowel obstruction (Chronic) Medical History: Medical History History of anxiety disorder (Chronic) Z86.59 GERD (gastroesophageal reflux disease) (Chronic) K21.9 Partial small bowel obstruction (Chronic) Vomiting (Acute) R11.10 Allergies ketorolac tromethamine [From Toradol] Allergy (Verified 06/22/18 11:32) Shortness of breath ondansetron HCl [From Zofran] Allergy (Verified 06/22/18 11:32) Shortness of breath Home Medications: Ambulatory Orders Medication Instructions Recorded Mv-Min/Iron/Folic/Calcium/Vitk 1 ea PO DAILY 10/19/17 [Women's Daily Formula Tablet] Surgical History: Surgical History (Last Updated 10/25/17 @ 14:01 by Radha Del Rosario) Recurrent ventral hernia with incarceration (Acute) K43.0 Surgical History: appendectomy, cholecystectomy, - - 3 sections, some type of bilateral reflux surgery dealing with the small bowel, 3 recurrent ventral hernia repairs about 10 cm above the umbilicus-last one was done June 09, 2018. BUSINESS EXCELLENCE MANAGER History: No pertinent BUSINESS EXCELLENCE MANAGER history Smoking Status: Former smoker - *Family History Maternal History Items: No pertinent history Paternal History Items: No pertinent history Review of Systems Constitutional: Reports: Anorexia VTE Information - Inpt Only VTE Present on Admission: Yes VTE Mechan Device Prophylaxis: SCD's VTE Pharm Prophylaxis ordered?: No Reason prophylaxis not ordered:: Medical Contraindication - Anticipate surgery tomorrow - Physical Exam General: Alert, Oriented x3, Cooperative Lungs: Normal air movement Cardiovascular: Regular rate Abdomen: Soft, Non-Distended, Obese, Tender - Tender to the right of the umbilicus positive incarcerated hernia about 3 x 4 cm of tissue herniated on exam consistent with CT., Hernia - Incarcerated incisional hernia, per CT only containing fat Vital Signs Temp Pulse Resp BP Pulse Ox 98.4 F 106 H 18 133/68 H 93 07/11/18 19:42 07/11/18 21:35 07/11/18 21:35 07/11/18 21:35 07/11/18 21:35 Oxygen Delivery Method Room Air Weight: 286 lb Body Mass Index (BMI) 47.5 Finger Stick Blood Glucose 109 Laboratory Tests Past 24 Hrs WBC 9.7 RBC 4.55 Hgb 13.8 Hct 41.8 MCV 91.9 MCH 30.3 MCHC 33.0 Assessment/Plan All Active Problems (Last Updated 10/25/17 @ 14:01 by Radha Del Rosario) Vomiting (Acute) Recurrent ventral hernia with incarceration (Acute) 33-year-old female with an incarcerated incisional hernia, CT shows fat in the hernia. 1. N.p.o./IV fluids, pain control, anti-emetics. We will plan for surgery tomorrow for open incarcerated incisional hernia repair, possible mesh. Discussed the procedures including risk including but not limited to bleeding, infection, injury to another organ i.e. small bowel, recurrent hernia, and anesthesia. Also discussed patient that in the future she may need to see a hernia specialist for her epigastric hernia site especially if no mesh was placed she has had 3 recurrent hernias at that site. Patient also states she has been intentionally trying to lose weight with the keto diet has lost about 25 pounds. Rosetta Miles M.D. Pager: [phone] [facility] [address] [place] [address], [facility], [address] [place] [address] Office: [phone] 07/12/18 1051 <Electronically signed by Rosetta Miles MD> Date Rosetta Miles MD Cosigner Signature: Date (if applicable) CC: No Primary Care Physician; Rosetta Miles MD Signed BASIC METABOLIC Collected: 07/12/2018 Status: F Source: [place] PROFILE ([place]) 5:15 AM [facility] REPOSITORY TYPE CODE TESTS RESULT OUT OF RANGE REFERENCE UNITS LAB L501.0100 74-106 mg/dL Normal GLU 87 Result Comment: Please note revised GLUCOSE reference range effective 2017. LAB L501.1000 7-18 mg/dL Low BUN 5 LAB L501.1100 0.55-1.02 mg/dL Low CREAT,SERUM 0.54 Result Comment: The validity of the calculated GFR AND GFRAA in patients over 70 years has not been determined. Clinical correlation is essential. LAB L501.1110 >60 mL/min Normal EST GFR 139 Result Comment: Non- GFR Calc LAB L501.1115 >60 mL/min Normal EST GFR - AA 168 Result Comment: GFR Calc LAB L501.1255 ml/min Normal Estimated CRCL 133.34 LAB L501.1300 10-20 RATIO Low BUN/CRE 9.3 LAB L501.2200 8.5-10 mg/dL Low .1 CA 8.3 LAB L501.5300 136-14 mmol/L 5 NA Normal 141 LAB L501.5600 3.5-5. mmol/L 1 K Normal 4.3 LAB L501.5900 98-107 mmol/L CL Normal 107 LAB L501.6100 21.0-3 mmol/L 2.0 CO2 Normal 25.0 LAB L501.6200 5-15 GAP Normal 9 Performed By: #### L500.2500 #### [facility] [address] [place], [address] ,URINE Collected: 07/12/2018 Status: F Source: [place] 2:00 AM [facility] TYPE CODE TESTS RESULT OUT OF REFERENCE UNITS RANGE LAB L400.8000 Negative Normal HCGUQUAL Negative Result Comment: Very dilute urine specimens, as indicated by a low specific gravity, may not contain fundraising sale representative levels of hCG. If is still suspected, a first morning urine specimen should be collected 48 hours later and tested. Performed By: #### L400.7600 #### [facility] [address] [place], [address] EMERGENCY DEPARTMENT Observed: 07/11/2018 Status: F Source: [place] SUMMARY 11:23 PM [facility] REPOSITORY [facility] Medical Records Department [address] [facility] [place] [address] Emergency Department Summary 07/11/182019 MR#: [id number] Acct: [id number] Name: REBEKA MARES Rep #: [id number] : 1985 33 From: Jose Shelby MD PCP: Care Physician, No Primary Status: ADM J LUIS - ER Visit Summary Date of Service: 07/11/18 Chief Complaint: Abdominal pain with nausea and vomiting History of Present Illness: The patient is a 33 F prior abdominal hernia repairs x3. Started having pain last , July 06. Was seen at [facility] ER. The general surgeon installation supervisor requested the patient be transferred. She was seen and treated at [facility] for several days. They did not feel she needed emergent surgery. She was discharged home. Patient states she is having more pain and nausea and vomiting now. Denies fever. She is having bowel movements. Physical Examination: Young female no acute distress vital signs are stable. She is tachycardic. H EENT exam unremarkable. Neck nontender. Lungs clear to auscultation bilaterally. Heart tachycardic no murmur. Abdomen obese but soft. She does have what appears to be a periumbilical hernia to the right of her bellybutton. I am unable to reduce it. There is tenderness to this area. I do not feel otherwise that her abdomen has any peritoneal signs. This is consistent with an incarcerated hernia. She is moving all 4 extremities. Neurologically she is awake and alert. Test Results: CBC White count 9. Hemoglobin 13. Electrolytes show potassium of 3.0. Normal gap. Normal creatinine. CT abdomen and pelvis is obtained and requested by the general surgeon shows dilated loops of bowel with air-fluid levels consistent with either an ileus or an early partial small bowel obstruction. And several periumbilical hernias with fat. Emergency Department Course and Treatment: Treated with IV morphine and Phenergan. I have the general surgeon installation supervisor Dr. Trudy Miles. With most likely surgery tomorrow. Treatment Plan: [] Disposition: [] Impression: Acute abdominal pain with nausea vomiting Rule out incarcerated periumbilical hernia This note was generated with [employer] dictation software. It may contain incorrect words, spelling, and punctuation that were not noted in review of the chart prior to signing ED Disposition - Plan for ED Patient: Chief Complaint: Abd Pain Referrals: Care Physician,No Primary [Primary Care Provider] - What to do if you have Problems For any increased pain, shortness of breath, bleeding, nausea or vomiting, chest pain, or any unexpected problems, contact your Primary Care Provider. Call [facility] ([phone]) or report to the closest Emergency Room. Call 911 if necessary. 07/11/18 7240 <Electronically signed by Jose Shelby MD> Date Jose Shelby MD Cosigner Signature (If Indicated): Date CC: No Primary Care Physician ABDOMEN/PELVIS W IV CONT Observed: 07/11/2018 Status: F Source: [place] ONLY 8:53 PM [facility] REPOSITORY [facility] Imaging Services [address] [place] [address] Abdomen/Pelvis W IV Cont ONLY MR#: [id number] Acct: [id number] Name: REBEKA MARES Rep #: [id number] : 1985 F 33 From: Mehrdad Sher MD PCP: Care Physician, No Primary Status: REG ER Study: Abdomen/Pelvis W IV Cont ONLY Date of Exam: 07/11/18 Exam# [id number] Ordering Dr: Jose Shelby MD STUDY: CT ABDOMEN AND PELVIS WITH CONTRAST REASON FOR EXAM: Female, 33 years old. Pain. RADIATION DOSAGE (If Supplied By Facility): CTDIvol = ( 18.74 ) mGy, DLP = ( 1426.28 ) mGycm TECHNIQUE: Transaxial images were obtained from the dome of the diaphragm to the symphysis pubis without oral contrast. 100 ml of Isovue 300 contrast was administered. Sagittal and coronal images were reconstructed. Individualized dose optimization techniques were used for this CT. COMPARISON: 2018. FINDINGS: The visualized lung bases are unremarkable. The visualized portions of the heart are within normal limits. There is hepatomegaly with diffuse hepatic enlargement. There is non-visualization of the gallbladder, which may be secondary to either contraction or a prior cholecystectomy. There is mild splenomegaly. Normal pancreas. Normal bilateral adrenal glands. Is 1.0 cm cyst of the right kidney. Normal left kidney. Normal visualized stomach. Postoperative changes involving loops of small intestine. There is focal distention of loops in the right upper quadrant with air and fluid. Normal colon. There is non-visualization of the appendix. Normal abdominal aorta. Normal inferior vena cava. Normal retroperitoneum. Normal urinary bladder. Normal visualized uterus. There are tubal ligation clips. Postoperative changes of the abdominal wall. There are umbilical and paraumbilical hernias containing fat. Mild degenerative changes of the spine. CT/Abdomen/Pelvis W IV Cont ONLY IMPRESSION: Hepatosplenomegaly. Postoperative changes. Distention of small bowel loops in the right upper quadrant with partial obstruction versus ileus. Electronically Signed: Mehrdad Sher MD at 21:48 EDT , Service support , CC: No Primary Care Physician; Jose Shelby MD Warehouse Delivery Manager: Signed CBC W/DIFF, AUTOMATED Collected: 07/11/2018 Status: F Source: [place] 8:15 PM [facility] REPOSITORY TYPE CODE TESTS RESULT OUT OF RANGE REFERENCE UNITS LAB L100.1000 4.4-11.0 K/mm3 Normal WBC 9.7 LAB L100.1200 4.2-5.4 M/mm3 Normal RBC 4.55 LAB L100.1300 12.0-15.0 g/dl Normal HGB 13.8 LAB L100.1400 37-47 % Normal HCT 41.8 LAB L100.1500 81-99 fL Normal MCV 91.9 LAB L100.1600 27.0-32.0 pg Normal MCH 30.3 LAB L100.1700 32-36 g/gl Normal MCHC 33.0 LAB L100.1810 11.6-14.6 % Normal RDW CV 12.9 LAB L100.1820 35.1-43.9 fl Normal RDW SD 42.9 LAB L100.1900 150-450 K/mm3 Normal PLT 248 LAB L100.2000 6.2-12.0 fl Normal MPV 9.2 LAB L100.2100 47-70 % Normal NEUT% 67.5 LAB L100.2200 19-41 % Normal LY% 23.1 LAB L100.2300 0-10 % Normal MONO% 6.5 LAB L100.2400 0-5 % Normal EO% 2.3 LAB L100.2500 0-1 % Normal BASO% 0.1 LAB L100.2550 0.0-0.9 % Normal IM GRAN % 0.500 Result Comment: IG% - Immature Granulocytes (promyelocytes, myelocytes and metamyelocytes) > 1% indicates that a LEFT SHIFT is Present. LAB L100.2620 2.0-7.7 X10 3/uL Normal Absolute Neut 6.5 LAB L100.2720 0.83-4.51 X10 3/ul Normal Absolute Lymph 2.23 Performed By: #### L100.0100 #### [facility] [place], [address] BASIC METABOLIC Collected: 07/11/2018 Status: F Source: [place] PROFILE (BMP) 8:15 PM [facility] REPOSITORY TYPE CODE TESTS RESULT OUT OF RANGE REFERENCE UNITS LAB L501.0100 74-106 mg/dL High GLU 175 Result Comment: Fasting Glucose result greater than or equal to 126 mg/dL suggests DIABETES MELLITUS per A.D.A. criteria. Please note revised GLUCOSE reference range effective 2017. LAB L501.1000 7-18 mg/dL Normal BUN 7 LAB L501.1100 0.55-1.02 mg/dL Normal CREAT,SERUM 0.77 Result Comment: The validity of the calculated GFR AND GFRAA in patients over 70 years has not been determined. Clinical correlation is essential. LAB L501.1110 >60 mL/min Normal EST GFR 91 Result Comment: Non- GFR Calc LAB L501.1115 >60 mL/min Normal EST GFR - AA 111 Result Comment: GFR Calc LAB L501.1255 ml/min Normal Estimated CRCL 93.51 LAB L501.1300 10-20 RATIO Low BUN/CRE 9.1 LAB L501.2200 8.5-10 mg/dL Normal .1 CA 8.9 LAB L501.5300 136-14 mmol/L Normal 5 NA 139 LAB L501.5600 3.5-5. mmol/L Low 1 K 3.0 LAB L501.5900 98-107 mmol/L Normal CL 106 LAB L501.6100 21.0-3 mmol/L Normal 2.0 CO2 22.0 LAB L501.6200 5-15 Normal GAP 11 Performed By: #### L500.2500 #### [facility] [address] [place], [address] CBC Collected: 07/07/2018 Status: F Source: [facility] [facility] 4:53 AM [facility] TYPE CODE TESTS RESULT OUT OF REFERENCE UNITS RANGE LAB WBC(LOINC) 4.50-10.80 10 3/mcL WBC 10.00 LAB RBCCT(LOINC 4.10-5.30 10 6/mcL ) RBC 4.32 LAB HGB(LOINC) 12.0-16.0 G/dL Hgb 13.2 LAB HCT(LOINC) 34.0-46.0 % Hct 39.3 LAB MCV(LOINC) 80.0-99.0 fL MCV 91.0 LAB MCH(LOINC) 27.0-33.0 pg MCH 30.6 LAB MCHC(LOINC) 32.0-36.0 G/dL MCHC 33.6 LAB RDW(LOINC) 11.5-15.5 % RDW 13.1 LAB PLT(LOINC) 150-450 10 3/mcL Platelet 254 LAB MPV(LOINC) 6.6-10.5 fL MPV 7.7 Performed By: #### CBC, ADIFF, ANEU #### [place] [address] .AUTO DIFF Collected: 07/07/2018 Status: F Source: [facility] 4:53 AM [facility] REPOSITORY TYPE CODE TESTS RESULT OUT OF REFERENCE UNITS RANGE LAB JOE(LOINC) 50.0-75.0 % Neutrophil % 63.4 LAB LYM(LOINC) 20.0-40.0 % Lymphocyte % 28.0 LAB MON(LOINC) 2.0-13.0 % Monocyte % 6.1 LAB EO(LOINC) 0.0-6.0 % Eosinophil % 2.2 LAB BAS(LOINC) 0.0-2.5 % Basophil % 0.3 LAB ABLYM(LOIN 0.90-4.32 10 3/mcL C) Lymphocyte, 2.80 Absolute LAB PEGGY(LOINC 0.09-1.40 10 3/mcL ) Monocyte, 0.60 Absolute LAB AEOS(LOINC 0.00-0.65 10 3/mcL ) Eosinophil, 0.20 Absolute LAB ABAS(LOINC 0.00-0.27 10 3/mcL ) Basophil, 0.00 Absolute Performed By: #### CBC, ADIFF, ANEU #### [place] [address] .NEUABS Collected: 07/07/2018 Status: F Source: [facility] 4:53 AM [facility] REPOSITORY TYPE CODE TESTS RESULT OUT OF REFERENCE UNITS RANGE LAB ANEU(LOINC) 2.25-8.10 10 3/mcL Neutrophil, 6.30 Absolute Performed By: #### CBC, ADIFF, ANEU #### [place] [address] EMERGENCY DEPARTMENT Observed: 2018 Status: F Source: [place] SUMMARY 6:19 PM [facility] REPOSITORY [facility] Medical Records Department [address] [place] [address] Emergency Department Summary 07/06/18 1815 MR#: [id number] Acct: [id number] Name: REBEKA MARES Rep #: [id number] : 1985 33 From: Santhosh Brown DO PCP: Care Physician, No Primary Status: REG ER - ER Visit Summary Date of Service: 07/06/18 Chief Complaint: Abdominal pain] History of Present Illness: The patient is a 33 F [presents with abdominal pain that started approximately 11 AM. Patient states that she stood up and twisted and felt a sudden tearing sensation in her right lower abdomen. Patient's been vomiting and complains of dizziness. Patient is concerned because she has had several ventral hernia repairs the last of which was June 09 at [facility]. Patient denies any diarrhea. She denies any fevers. Patient denies urinary symptoms. Patient has history of diabetes, bipolar disorder, anxiety, and GERD.] Physical Examination: [HEENT-PERRLA, EOMI. Cranial nerves II through XII grossly intact. TMs clear. Mucous membranes moist. No adenopathy. Cardiovascular-regular rate and rhythm without murmur or ectopy Lungs-clear to auscultation, chest wall stable without crepitus or subcu emphysema Abdomen-normoactive bowel sounds, soft. Patient does have tenderness palpation just to the right of the umbilicus. Patient does have some subtle fullness in the area is very tender to palpation. Extremities-intact 4, normal range of motion, normal pulses, atraumatic] Test Results: [CBC with differential obtained was normal. Chemistries unremarkable. HCG was negative. Lactate was elevated at 3.2. CT scan of the abdomen pelvis showed prior ventral wall abdominal hernia repair with small recurrent fat-containing hernia.] Emergency Department Course and Treatment: [Patient was medicated with Dilaudid and Phenergan. Patient had to be remedicated with Dilaudid secondary to continued pain.] Treatment Plan: [I discussed case with Dr. Will Mendez who was covering for Dr. Marcial whom the patient has seen before. Dr. Mendez asked that we transfer patient to [facility] where she had her latest surgery. I discussed case with [facility] and Dr. Flores accepted transfer of the patient.] Disposition: [Transfer] Impression: [Abdominal pain with recurrent ventral hernia] This note was generated with [employer] dictation software. It may contain incorrect words, spelling, and punctuation that were not noted in review of the chart prior to signing ED Disposition - Plan for ED Patient: Chief Complaint: Abd Pain Referrals: Care Physician,No Primary [Primary Care Provider] - What to do if you have Problems For any increased pain, shortness of breath, bleeding, nausea or vomiting, chest pain, or any unexpected problems, contact your Primary Care Provider. Call [facility] ([phone]) or report to the closest Emergency Room. Call 911 if necessary. 07/06/181818 <Electronically signed by Santhosh Brown DO> Date Santhosh Brown DO Cosigner Signature (If Indicated): Date CC: No Primary Care Physician LACTIC ACID Collected: 2018 Status: F Source: [place] 4:20 PM [facility] REPOSITORY Order Comment: REDRAW. PREVIOUS SPECIMEN REJECTED DUE TO HEMOLYZED SPECIMEN. 07/06/18 1611 Daisy Alicia. TYPE CODE TESTS RESULT OUT OF REFERENCE UNITS RANGE LAB L503.6005 0.4-2.0 mmol/L High LACTIC ACID 3.2 Result Comment: Critical Result(s) Called at: 17:03:35 2018 by: Daisy Alicia to [facility] Performed By: #### L503.6005 #### [facility] [address] [place], [place], [address] ABDOMEN/PELVIS WITH Observed: 2018 Status: F Source: [place] CONTRAST 3:14 PM [facility] REPOSITORY [facility] Imaging Services [address] [place] [address] Abdomen/Pelvis WITH Contrast MR#: [id number] Acct: [id number] Name: REBEKA MARES Rep #: [id number] : 1985 F 33 From: Nick Armendariz DO PCP: Care Physician, No Primary Status: REG ER Study: Abdomen/Pelvis WITH Contrast Date of Exam: 07/06/18 Exam# [id number] Ordering Dr: Santhosh Brown DO STUDY: CT ABDOMEN AND PELVIS WITH CONTRAST REASON FOR EXAM: Female, 33 years old. Abdominal pain. History of GERD RADIATION DOSAGE (If Supplied By Facility): CTDIvol = ( 17.07 ) mGy, DLP = ( 1388.35 ) mGycm TECHNIQUE: Transaxial images were obtained from the dome of the diaphragm to the symphysis pubis without oral contrast. 100 ml of Isovue 300 contrast was administered. Sagittal and coronal images were reconstructed. Individualized dose optimization techniques were used for this CT. COMPARISON: None. FINDINGS: The visualized lung bases are unremarkable. The visualized portions of the heart are within normal limits. Normal liver. There are surgical clips in the gallbladder fossa consistent with a prior cholecystectomy. Normal spleen. Normal pancreas. Normal bilateral adrenal glands. Small midpole renal cyst measuring 1.2 cm. Otherwise, normal right kidney. Normal left kidney. Normal visualized stomach. Chain sutures noted in the mid abdominal region, likely within loops of small bowel. Otherwise, small bowel is within normal limits. Normal colon. There is non-visualization of the appendix. Normal abdominal aorta. Normal inferior vena cava. Normal retroperitoneum. Normal urinary bladder. Normal visualized uterus. Prior ventral wall abdominal hernia repair with small recurrent fat-containing hernia. Normal osseous structures. CT/Abdomen/Pelvis WITH Contrast IMPRESSION: 1. No acute findings 2. Status post cholecystectomy, partial small bowel resection as well as appendectomy Electronically Signed: Nick Armendariz DO at 17:05 EDT Tel , Service support , CC: No Primary Care Physician; Santhosh Brown DO Warehouse Delivery Manager: Signed CBC W/DIFF, AUTOMATED Collected: 2018 Status: F Source: [place] 3:05 PM [facility] REPOSITORY TYPE CODE TESTS RESULT OUT OF RANGE REFERENCE UNITS LAB L100.1000 4.4-11.0 K/mm3 Normal WBC 9.1 LAB L100.1200 4.2-5.4 M/mm3 Normal RBC 4.74 LAB L100.1300 12.0-15.0 g/dl Normal HGB 14.6 LAB L100.1400 37-47 % Normal HCT 43.5 LAB L100.1500 81-99 fL Normal MCV 91.8 LAB L100.1600 27.0-32.0 pg Normal MCH 30.8 LAB L100.1700 32-36 g/gl Normal MCHC 33.6 LAB L100.1810 11.6-14.6 % Normal RDW CV 12.7 LAB L100.1820 35.1-43.9 fl Normal RDW SD 42.1 LAB L100.1900 150-450 K/mm3 Normal PLT 258 LAB L100.2000 6.2-12.0 fl Normal MPV 9.4 LAB L100.2100 47-70 % Normal NEUT% 59.1 LAB L100.2200 19-41 % Normal LY% 30.8 LAB L100.2300 0-10 % Normal MONO% 5.8 LAB L100.2400 0-5 % Normal EO% 3.3 LAB L100.2500 0-1 % Normal BASO% 0.2 LAB L100.2550 0.0-0.9 % Normal IM GRAN % 0.800 Result Comment: IG% - Immature Granulocytes (promyelocytes, myelocytes and metamyelocytes) > 1% indicates that a LEFT SHIFT is Present. LAB L100.2620 2.0-7.7 X10 3/uL Normal Absolute Neut 5.4 LAB L100.2720 0.83-4.51 X10 3/ul Normal Absolute Lymph 2.81 Performed By: #### L100.0100 #### [facility] [address] [place], [address] BASIC METABOLIC Collected: 2018 Status: F Source: [place] PROFILE (BMP) 3:05 PM [facility] REPOSITORY TYPE CODE TESTS RESULT OUT OF RANGE REFERENCE UNITS LAB L501.0100 74-106 mg/dL High GLU 122 Result Comment: Fasting Glucose result from 100 to 125 mg/dL suggests IMPAIRED HOMEOSTASIS per A.D.A. criteria. Please note revised GLUCOSE reference range effective 2017. LAB L501.1000 7-18 mg/dL Normal BUN 10 LAB L501.1100 0.55-1.02 mg/dL Normal CREAT,SERUM 0.86 Result Comment: The validity of the calculated GFR AND GFRAA in patients over 70 years has not been determined. Clinical correlation is essential. LAB L501.1110 >60 mL/min Normal EST GFR 81 Result Comment: Non- GFR Calc LAB L501.1115 >60 mL/min Normal EST GFR - AA 98 Result Comment: GFR Calc LAB L501.1255 ml/min Normal Estimated CRCL 83.72 LAB L501.1300 10-20 RATIO Normal BUN/CRE 11.7 LAB L501.2200 8.5-10 mg/dL Normal .1 CA 9.1 LAB L501.5300 136-14 mmol/L Normal 5 NA 142 LAB L501.5600 3.5-5. mmol/L Low 1 K 3.3 LAB L501.5900 98-107 mmol/L Normal CL 106 LAB L501.6100 21.0-3 mmol/L Normal 2.0 CO2 21.0 LAB L501.6200 5-15 Normal GAP 15 Performed By: #### L500.2500 #### [facility] [address] [place], [place], [address] ,SERUM,HCG QUALI. Collected: Status: F Source: [place] 2018 3:05 PM [facility] REPOSITORY TYPE CODE TESTS RESULT OUT OF REFERENCE UNITS RANGE LAB L700.7000 0-9 Nonpreg Negative Normal HCGSQUAL NEGATIVE LAB L700.6700 =>Qualitative mIU/mL Normal HCG Qual < 1 triggr Performed By: #### L700.6800 #### [facility] [address] [place], [address] 12 LEAD ELECTROCARDIOGRAM Observed: 06/26/2018 Status: F Source: [place] 3:02 PM [facility] REPOSITORY [facility] Cardiovascular Services [address] [place] [address] 12 Lead EKG 06/22/18 1151 MR#: [id number] Acct: [id number] Name: REBEKA MARES Rep #: [id number] : 1985 32 From: Thompson Funez MD Attending Dr: Status: DEP ER Ordering Dr: Tim Ren DO Date: 06/22/18 Location: ED Sex: F C Admitted: Test Reason : SYNCOPE Blood Pressure : / mmHG Vent. Rate : 079 BPM Atrial Rate : 079 BPM P-R Int : 150 ms QRS Dur : 086 ms QT Int : 378 ms P-R-T Axes : 253 065 031 degrees QTc Int : 433 ms Unusual P axis, possible ectopic atrial rhythm Abnormal ECG Confirmed by PATRICK DODD, THOMPSON ([id number]), manuscript editor KEZIA BARKER ([id number]) on 06/26/2018 3:02:02 PM Referred By: HAN Confirmed By:THOMPSON FUNEZ MD 06/26/18 1502 Date Thompson Funez MD CC: No Primary Care Physician; Tim Ren DO Signed EMERGENCY DEPARTMENT Observed: 06/22/2018 Status: F Source: [place] SUMMARY 1:34 PM [facility] Medical Records Department [address] [place] [address] Emergency Department Summary 06/22/18 1139 MR#: [id number] Acct: [id number] Name: REBEKA MARES Rep #: [id number] : 1985 32 From: Tim Ren DO PCP: Care Physician, No Primary Status: REG ER - ER Visit Summary Date of Service: 06/22/18 Chief Complaint: Syncope History of Present Illness: The patient is a 32 F who presents with a syncopal episode that occurred today. Patient states she was in the shower when she felt her heart racing and became dizzy. Patient states she passed out for approximately 3- 4 minutes. Patient states that before she passed out she also felt some pain in her right lower thoracic area. Patient states she has been having some pain in her left lower first molar area for the past few days as well. Patient also is being treated for bilateral otitis externa. Patient states her right ear is still has some pain but her left ear has cleared up. Patient admits to some nausea and upper abdominal pain. Patient had a recent ventral herniorrhaphy approximately 2 weeks ago. Patient also complains of a headache. Physical Examination: Vital signs are stable. Patient is afebrile. Patient is in no acute distress. Oral mucosa is pink and moist. Tympanic membranes are clear bilaterally. The right external auditory canal is mildly edematous. There is some tenderness with manipulation of the right external ear. Oropharynx is clear. There is some mild tenderness over the left lower first molar. There is no gingival edema or abscess noted. Neck is supple. Trachea is midline. There is some tender anterior cervical lymphadenopathy. Heart was regular rate and rhythm. Lungs are clear and equal bilaterally. Abdomen is soft. There is some upper abdominal tenderness. There is no rebound or guarding noted. The herniorrhaphy incision is healing well. There is no erythema or signs of infection. Cranial nerves II through XII are intact. There are no focal motor or sensory deficits noted. The remaining physical exam is within normal limits. Test Results: EKG showed ectopic atrial rhythm with a rate of 79. There are no acute ST or T-wave changes. There are no other acute changes noted. CBC showed a mild leukocytosis of 11.7. Basic metabolic profile, troponin, and urinalysis were all within normal limits. Chest x-ray does not show any acute cardiopulmonary process. Orthostatic vital signs were normal. Emergency Department Course and Treatment: Patient was given IV fluids here. Patient was instructed to go home and rest. Patient was instructed to drink plenty of fluids. She was given a prescription for Pen-Vee K for possible dental infection. Patient was instructed to follow-up with her primary care physician in 7-10 days. Patient understood and was agreeable with the plan. All questions were answered. Disposition: Discharged home Impression: Syncope This note was generated with [employer] software. It may contain incorrect words, spelling, and punctuation that were not noted in review of the chart prior to signing ED Disposition - Plan for ED Patient: Disposition: Home or Assisted Living Chief Complaint: Syncope Diagnosis: Syncope Instructions: ED Fainting Unkn Cause Prescriptions: Penicillin V Potassium 500 mg PO 4X/DAY #40 tab Referrals: Care Physician,No Primary [Primary Care Provider] - What to do if you have Problems For any increased pain, shortness of breath, bleeding, nausea or vomiting, chest pain, or any unexpected problems, contact your Primary Care Provider. Call [facility] ([phone]) or report to the closest Emergency Room. Call 911 if necessary. 06/22/18 1334 <Electronically signed by Tim Ren DO> Date Tim Ren DO Cosigner Signature (If Indicated): Date CC: No Primary Care Physician CBC W/DIFF, AUTOMATED Collected: 06/22/2018 Status: F Source: [place] 12:00 PM [facility] REPOSITORY TYPE CODE TESTS RESULT OUT OF RANGE REFERENCE UNITS LAB L100.1000 4.4-11.0 K/mm3 High WBC 11.7 LAB L100.1200 4.2-5.4 M/mm3 Normal RBC 4.58 LAB L100.1300 12.0-15.0 g/dl Normal HGB 13.8 LAB L100.1400 37-47 % Normal HCT 42.2 LAB L100.1500 81-99 fL Normal MCV 92.1 LAB L100.1600 27.0-32.0 pg Normal MCH 30.1 LAB L100.1700 32-36 g/gl Normal MCHC 32.7 LAB L100.1810 11.6-14.6 % Normal RDW CV 13.1 LAB L100.1820 35.1-43.9 fl Normal RDW SD 43.7 LAB L100.1900 150-450 K/mm3 Normal PLT 278 LAB L100.2000 6.2-12.0 fl Normal MPV 9.4 LAB L100.2100 47-70 % High NEUT% 71.1 LAB L100.2200 19-41 % Low LY% 18.4 LAB L100.2300 0-10 % Normal MONO% 5.3 LAB L100.2400 0-5 % Normal EO% 3.8 LAB L100.2500 0-1 % Normal BASO% 0.3 LAB L100.2550 0.0-0.9 % High IM GRAN % 1.100 Result Comment: IG% - Immature Granulocytes (promyelocytes, myelocytes and metamyelocytes) > 1% indicates that a LEFT SHIFT is Present. LAB L100.2620 2.0-7.7 X10 3/uL High Absolute Neut 8.3 LAB L100.2720 0.83-4.51 X10 3/ul Normal Absolute Lymph 2.16 Performed By: #### L100.0100 #### [facility] [address] [place], [address] COMPREHENSIVE METABOLIC Collected: 06/22/2018 Status: F Source: [facility] 12:00 PM [facility] REPOSITORY TYPE CODE TESTS RESULT OUT OF RANGE REFERENCE UNITS LAB L501.0100 74-106 mg/dL Normal GLU 95 Result Comment: Please note revised GLUCOSE reference range effective 2017. LAB L501.1000 7-18 mg/dL Normal BUN 12 LAB L501.1100 0.55-1.02 mg/dL Normal CREAT,SERUM 0.62 Result Comment: The validity of the calculated GFR AND GFRAA in patients over 70 years has not been determined. Clinical correlation is essential. LAB L501.1110 >60 mL/min Normal EST GFR 118 Result Comment: Non- GFR Calc LAB L501.1115 >60 mL/min Normal EST GFR - AA 143 Result Comment: GFR Calc LAB L501.1255 ml/min Normal Estimated CRCL 117.22 LAB L501.1300 10-20 RATIO BUN/CRE Normal 19.4 LAB L501.1500 6.4-8. g/dL 2 T PROT Normal 7.0 LAB L501.1800 3.2-5. g/dL 0 ALB Normal 3.4 LAB L501.1950 2.2-4. g/dL 2 GLOB Normal 3.6 LAB L501.2000 0.9-2. RATIO 4 A/G Normal 0.9 LAB L501.2200 8.5-10 mg/dL .1 CA Normal 8.7 LAB L501.4100 15-37 U/L Low AST 11 Result Comment: Slight Hemolysis, Result may be falsely increased. LAB L501.4305 45-117 U/L Normal ALK P 63 LAB L501.4405 13-56 U/L Normal ALT 25 LAB L501.4600 0.20-1.00 mg/dL Low T BILI 0.10 LAB L501.5300 136-145 mmol/L Normal NA 141 LAB L501.5600 3.5-5.1 mmol/L Normal K 4.3 Result Comment: Slight Hemolysis, Result may be falsely increased. LAB L501.5900 98-107 mmol/L High CL 109 LAB L501.6100 21.0-32.0 mmol/L Normal CO2 23.0 LAB L501.6200 5-15 Normal 9 GAP Performed By: #### L500.4050, L501.2450 #### [facility] [address] [place], [address] LIPASE Collected: 06/22/2018 Status: F Source: [place] 12:00 PM [facility] REPOSITORY TYPE CODE TESTS RESULT OUT OF RANGE REFERENCE UNITS LAB L501.2450 73-393 U/L Normal LIPASE 113 Performed By: #### L500.4050, L501.2450 #### [facility] [address] [place], [place], [id number] ,URINE Collected: 06/22/2018 Status: F Source: [place] 11:47 AM [facility] REPOSITORY Order Comment: Order Date: 06/22/18 TYPE CODE TESTS RESULT OUT OF REFERENCE UNITS RANGE LAB L400.8000 Negative Normal HCGUQUAL Negative Result Comment: Very dilute urine specimens, as indicated by a low specific gravity, may not contain fundraising sale representative levels of hCG. If is still suspected, a first morning urine specimen should be collected 48 hours later and tested. Performed By: #### L400.7600 #### [facility] [address] [place], [address] URINALYSIS, COMPLETE Collected: 06/22/2018 Status: F Source: [place] 11:47 AM [facility] REPOSITORY Order Comment: Order Date: 06/22/18 How was Urine Obtained? CLEAN CATCH TYPE CODE TESTS RESULT OUT OF RANGE REFERENCE UNITS LAB L400.3000 Yellow COLOR Normal Yellow LAB L400.3050 Clear Normal CLARITY Sl. Cloudy LAB L400.3200 Normal mg/dl Normal GLUCOSE, UR Normal LAB L400.3300 Negative mg/dL Normal BILIRUBIN URINE Negative LAB L400.3400 Negative mg/dl Normal KETONE UR Negative LAB L400.3465 1.002-1.030 Normal SP.GR. DIPSTX 1.025 LAB L400.3550 5.0 - 8.0 pH UR Normal 5.0 LAB L400.3600 Negative mg/dl High PROT 30 DIPSTX LAB L400.3700 Normal mg/dl Normal UROBILI Normal LAB L400.3750 Negative Normal NITRITE UR Negative LAB L400.3780 Negative /ul High OCCULT BLOOD-UR 250 LAB L400.3800 Negative /ul High LEUK 25 ESTERASE LAB L400.4050 0-5 /hpf WBC Normal 5-10 SEEN LAB L400.4100 0-5 /hpf Normal RBC-UA 0-5 SEEN LAB L400.4150 5-10 /hpf SQUAM Normal EPI 5-10 SEEN LAB L400.4300 None Seen /hpf Normal BACTERIA RARE LAB L400.4350 <or=2+ /hpf 1+ Normal MUCUS, URINE Performed By: #### L400.0001 #### [facility] [address] [facility] [place], [address] CHEST PA AND LATERAL Observed: 06/22/2018 Status: F Source: [place] 11:37 AM [facility] REPOSITORY [facility] Services [address] [place] [address] Chest PA and Lateral MR#: [id number] Acct: [id number] Name: REBEKA MARES Rep #: [id number] : 1985 F 32 From: Sacha Roca MD PCP: Care Physician, No Primary Status: REG ER Study: Chest PA and Lateral Date of Exam: 06/22/18 Exam# [id number] Ordering Dr: Tim Ren DO STUDY: X-RAY CHEST REASON FOR EXAM: Female, 32 years old. Syncope. TECHNIQUE: PA and lateral views of the chest. COMPARISON: Comparison is made with prior study dated September 15, 2014. FINDINGS: EKG electrodes are seen. Scattered calcified granulomas. No acute abnormality is seen. There is no demonstrated pleural abnormality. Normal size heart. Normal mediastinum and denisse. Normal visualized pulmonary arteries. Normal visualized aortic arch and descending thoracic aorta. Normal visualized thoracic spine. Normal visualized ribs, clavicles, and shoulders. There is no demonstrated abnormality of the visualized soft tissue structures of the upper abdomen. RAD/Chest PA and Lateral IMPRESSION: Normal x-ray examination of the chest. Electronically Signed: Sacha Roca MD at 12:56 EDT Tel [phone], Service support , CC: No Primary Care Physician; Tim Ren DO Warehouse Delivery Manager: Signed LAC Collected: 06/08/2018 Status: F Source: [facility] 2:39 PM [facility] REPOSITORY TYPE CODE TESTS RESULT OUT OF REFERENCE UNITS RANGE LAB LAC(LOINC) 0.2-2.0 mmol/L Lactic Acid 1.7 Lvl Performed By: #### LAC, CBC, ADIFF, ANEU, LIP, CMP, GFR #### [place] [address] CBC Collected: 06/08/2018 Status: F Source: [facility] 2:39 [facility] REPOSITORY TYPE CODE TESTS RESULT OUT OF REFERENCE UNITS RANGE LAB WBC(LOINC) 4.50-10.80 10 3/mcL WBC 9.30 LAB RBCCT(LOINC 4.10-5.30 10 6/mcL ) RBC 4.82 LAB HGB(LOINC) 12.0-16.0 G/dL Hgb 14.9 LAB HCT(LOINC) 34.0-46.0 % Hct 44.0 LAB MCV(LOINC) 80.0-99.0 fL MCV 91.2 LAB MCH(LOINC) 27.0-33.0 pg MCH 30.9 LAB MCHC(LOINC) 32.0-36.0 G/dL MCHC 33.8 LAB RDW(LOINC) 11.5-15.5 % RDW 13.4 LAB PLT(LOINC) 150-450 10 3/mcL Platelet 263 LAB MPV(LOINC) 6.6-10.5 fL MPV 7.3 Performed By: #### LAC, CBC, ADIFF, ANEU, LIP, CMP, GFR #### [address] [address] .AUTO DIFF Collected: 06/08/2018 Status: F Source: [facility] 2:39 PM [facility] REPOSITORY TYPE CODE TESTS RESULT OUT OF REFERENCE UNITS RANGE LAB JOE(LOINC) 50.0-75.0 % High Neutrophil % 75.3 LAB LYM(LOINC) 20.0-40.0 % Low Lymphocyte % 17.6 LAB MON(LOINC) 2.0-13.0 % Monocyte % 5.0 LAB EO(LOINC) 0.0-6.0 % Eosinophil % 1.6 LAB BAS(LOINC) 0.0-2.5 % Basophil % 0.5 LAB ABLYM(LOIN 0.90-4.32 10 3/mcL C) Lymphocyte, 1.60 Absolute LAB PEGGY(LOINC 0.09-1.40 10 3/mcL ) Monocyte, 0.50 Absolute LAB AEOS(LOINC 0.00-0.65 10 3/mcL ) Eosinophil, 0.20 Absolute LAB ABAS(LOINC 0.00-0.27 10 3/mcL ) Basophil, 0.00 Absolute Performed By: #### LAC, CBC, ADIFF, ANEU, LIP, CMP, GFR #### [address] [address] .NEUABS Collected: 06/08/2018 Status: F Source: [facility] 2:39 PM [facility] REPOSITORY TYPE CODE TESTS RESULT OUT OF REFERENCE UNITS RANGE LAB ANEU(LOINC) 2.25-8.10 10 3/mcL Neutrophil, 7.00 Absolute Performed By: #### LAC, CBC, ADIFF, ANEU, LIP, CMP, GFR #### [address] [address] LIP Collected: 06/08/2018 Status: F Source: [facility] 2:39 PM [facility] REPOSITORY TYPE CODE TESTS RESULT OUT OF REFERENCE UNITS RANGE LAB LIP(LOINC) 73-393 U/L Lipase Level 90 Performed By: #### LAC, CBC, ADIFF, ANEU, LIP, CMP, GFR #### [address] [address] CMP Collected: 06/08/2018 Status: F Source: [facility] 2:39 PM [facility] REPOSITORY TYPE CODE TESTS RESULT OUT OF REFERENCE UNITS RANGE LAB GLU(LOINC) 70-110 mg/dL Glucose Level 106 LAB NA(LOINC) 136-145 mEq/L Sodium Level 138 LAB K(LOINC) 3.5-5.0 mEq/L Potassium Level 4.0 LAB CL(LOINC) 98-110 mEq/L Chloride 106 LAB CO2(LOINC) 22-32 mEq/L CO2 22 LAB EBAL(LOINC 4.0-15.0 mEq/L ) Electrolyte Balance 10.0 LAB BUN(LOINC) 8.0-22.0 mg/dL BUN 10.0 LAB CRE(LOINC) 0.50-1.20 mg/dL Creatinine Lvl (s) 0.50 LAB BC(LOINC) 10.0-22.0 ratio BUN/Creatinine 20.0 Ratio LAB CA(LOINC) 8.4-10.1 mg/dL Calcium Lvl 9.0 LAB PROT(LOINC 6.0-8.5 G/dL ) Total Protein 7.4 LAB ALB(LOINC) 3.2-4.8 G/dL Albumin Level 4.2 LAB GLB(LOINC) 1.5-3.8 G/dL Globulin 3.2 LAB AG(LOINC) 0.9-1.6 ratio A/G Ratio 1.3 LAB BILT(LOINC 0.2-1.2 mg/dL ) Bili Total 0.4 LAB AP(LOINC) 38-126 U/L Alk Phos 51 LAB AST(LOINC) 8-34 U/L AST/SGOT 11 LAB ALT(LOINC) 10-49 U/L ALT/SGPT 21 Performed By: #### LAC, CBC, ADIFF, ANEU, LIP, CMP, GFR #### [address] [address] .GFR Collected: 06/08/2018 Status: F Source: [facility] 2:39 PM [facility] REPOSITORY TYPE CODE TESTS RESULT OUT OF REFERENCE UNITS RANGE LAB GFRAA(LOINC ml/min/1.73 ) sqm GFR >60 Salv[place]orean Result Comment: GFR Population mean for , Non- Americans Ages 20-29 = 116 mL/min/1.73 sq.m. Ages 30-39 = 107 mL/min/1.73 sq.m. Ages 40-49 = 99 mL/min/1.73 sq.m. Ages 50-59 = 93 mL/min/1.73 sq.m. Ages 60-69 = 85 mL/min/1.73 sq.m. Ages 70+ = 75 mL/min/1.73 sq.m. Chronic Kidney Disease: Less than 60 mL/min/1.73 square meters End Stage Renal Disease: Less than 15 mL/min/1.73 square meters LAB GFRNO(LOINC) ml/min/1.73sqm GFR Non- >60 Result Comment: GFR Population mean for , Non- Americans Ages 20-29 = 116 mL/min/1.73 sq.m. Ages 30-39 = 107 mL/min/1.73 sq.m. Ages 40-49 = 99 mL/min/1.73 sq.m. Ages 50-59 = 93 mL/min/1.73 sq.m. Ages 60-69 = 85 mL/min/1.73 sq.m. Ages 70+ = 75 mL/min/1.73 sq.m. Chronic Kidney Disease: Less than 60 mL/min/1.73 square meters End Stage Renal Disease: Less than 15 mL/min/1.73 square meters Performed By: #### LAC, CBC, ADIFF, ANEU, LIP, CMP, GFR #### [facility] [address] [place] [address] ED DOC Observed: 06/06/2018 Status: UNK Source: [facility] 8:10 PM [facility] REPOSITORY This is a preliminary report only, as the practitioner review and authentication has not occurred. ED DOC Observed: 06/06/2018 Status: UNK Source: [facility] 8:10 PM [facility] REPOSITORY PHYSICIAN ASSESSMENT RECORDS : FlexChartData Event Time: 06/06/2018 17:10 [facility] Status: Signed [facility] Rebeka Mares [[id number]] Mid-Level Chart (V2b) / / 1985 Chart created at 06/06/2018 17:00 by Heath Calle PA-C Chart closed at 06/06/2018 19:33 Entry in Emergency Department at 06/06/2018 12:43, departure at 06/06/2018 20:10 Patient Name: Rebeka Mares Record Number: [id number] Date: 06/06/2018 17:00 Entered Department at: 06/06/2018 12:43 Patient Seen at: 06/06/2018 16:36 Historian: Patient PCP: *None,. Chief Complaint:LUQ abdomen pain x4 days. Dx with hernia 4 years ago, has not had surgery d/t no insurance Nursing triage/initial assessment reviewed and confirmed and Initial Vital Signs reviewed. Temperature: 99 F (37.2 C). Pulse: 111. Respiratory Rate: 18. Blood-pressure: 151/85. Oxygen Saturation: 98%. History of Present Illness: 32-Year-old female presents emergency department today with complaints of abdominal pain near a known abdominal incisional hernia. She was evaluated here 2 days ago for the same. I did review this record. She states she has not called the general surgeon as she [facility] PATIENT NAME: REBEKA MARES [address] MEDICAL REC #: [id number] [place] [address] EMERGENCY DEPARTMENT CHART EMERGENCY DEPARTMENT PHYSICIAN cannot afford the copayment for this hernia. She states this morning her abdominal pain got more severe around her hernia. This is been fixed twice in the distant past though 4 days ago she bent over while in the shower and took a deep breath and pick something up and it popped out. It is associated with nausea as well as vomiting. Her vomiting has been bilious and about 10 episodes today. She reports she has not been passing gas or had any bowel movements since yesterday when she had a small amount of loose stool. She denies any fevers. No chest pain or palpitations. Review of Systems. All other systems reviewed and negative.. Past History, Medications, Allergies, Social History and Family History reviewed in nurses note. Medications: Reviewed RN Note. Allergies: Reviewed RN Note Zofran(Hives), Toradol(Difficulty Breathing), TORADOL(CHEST TIGHTNESS), Toradol(Hives) Social History: Reviewed RN Note. Family History: Reviewed RN Note Physical Examination: General: Alert; Overweight Respiratory: No Resp Distress, Chest non-tender and Normal Breath Sounds Cardio-Vascular: No murmur and No rub; Tachycardic regular rhythm Abdomen: Bowel sounds absent. Patient reports diffuse abdominal pain with guarding purposely, the pain is worse midway between her epigastric area and nasal on the left of midline which she has a palpable, nonreducible abdominal hernia measuring roughly 8 cm in diameter. She does have a midline incision which this hernia is to the left of. Neurological: Alert, Oriented X3 and No Gross Weakness Skin: No rash and No Petechiae Psychological: Normal Memory/Judgment; Tearful. Anxious. Uncomfortable. LACTATE BLOOD, information as of 06/06/2018, 5:17 pm LACTATE BLOOD: 1.69 Mmol/L [facility] PATIENT NAME: REBEKA MARES [facility] [address] MEDICAL REC #: [id number] [place] [address] EMERGENCY DEPARTMENT CHART EMERGENCY DEPARTMENT PHYSICIAN CBC W/DIFF, information as of 06/06/2018, 5:17 pm 89.2 / 14.8 / 11.4* andgt;------andlt; 282 / 43.8 / N:72.0 BASO ABS: 0.00 K/Cu Mm; BASOPHIL %: 0.3 %; EOS ABS: 0.20 K/Cu Mm; EOSINOPHIL %: 1.6 %; IMMATR GRAN ABS: 0.10 K/Cu Mm; IMMATURE GRAN %: 0.5 %; LYMPH %: 20.0 %; LYMPH ABS: 2.30 K/Cu Mm; MCHC: 33.8 Gm/Dl; MONO ABS: 0.60 K/Cu Mm; MONOCYTE %: 5.6 %; MPV: 9.1; NEUTROPHIL ABS: 8.20 K/Cu Mm; NRBC: 0.0 %; RBC: 4.91 M/Cu Mm; RDW: 12.8 HCG, information as of 06/06/2018, 5:17 pm HCG SER RESULT: Neg BMP, information as of 06/06/2018, 6:53 pm 140 --------+--------+--------andlt; 94 Anion Gap = 10 4.0 BUN/CREA: 17; CALCIUM TOTAL: 8.6 Mg/Dl Imaging Study Obtained: CT ABD/PEL W IV CONTRAST ONLY Imaging Study Obtained: CT ABD/PEL W IV CONTRAST ONLY, Status:Signed Report Available CT ABD/PEL W IV CONTRAST ONLY Ordering Physician: Heath Calle 06/06/2018 4:[address] ABDOMEN AND PELVIS WITH IV CONTRAST: Clinical Statement: Abdominal pain, known hernia, nonreducible Comparison: CT abdomen pelvis 06/04/2018 TECHNIQUE: Contiguous transaxial 3.75 mm slices were obtained through [facility] PATIENT NAME: REBEKA MARES [address] [address] MEDICAL REC #: [id number] [place] [address] EMERGENCY DEPARTMENT CHART EMERGENCY DEPARTMENT PHYSICIAN the abdomen and pelvis following the uneventful administration of 100 cc of Isovue 300 IV contrast. Coronal reformats were also obtained. FINDINGS: Minimal atelectasis seen at the lung bases. There is diffuse low-density of the liver compatible with hepatic steatosis. Postoperative changes of cholecystectomy are seen. The spleen, adrenal glands, and pancreas are unremarkable. Subcentimeter hypodensities are seen in the bilateral kidneys which most likely represent cysts. A few diverticuli are seen in the sigmoid and descending colon. Left anterior abdominal wall hernia containing part of the transverse colon and mesenteric fat is not significantly changed. The neck of the hernia measures about 4.3 cm, unchanged. There are multiple small adjacent fat-containing hernias. The uterus is present. There are bilateral tubal ligation devices. A dilated loop of small bowel at the anastomotic suture site in the left upper abdomen is not significantly changed. There is no bowel obstruction. No acute osseous findings are [facility] PATIENT NAME: REBEKA MARES [facility] [address] MEDICAL REC #: [id number] [place] [address] EMERGENCY DEPARTMENT CHART EMERGENCY DEPARTMENT PHYSICIAN seen. IMPRESSION: Unchanged anterior abdominal wall hernia containing part of the transverse colon and mesenteric fat. A report was sent to the Emergency Department at the time of dictation. ---- Electronic Signature on File ---- Signed By: Markus Contreras MD [email or web address] Dictated: 06/06/2018 6:14 PM Signed: 06/06/2018 6:21 PM Reported By: MARKUS CONTRERAS M.D. Radiology: Interpreted by Radiologist. Medical Decision Making Patient was seen 2 days ago for a nonreducible abdominal hernia. She called Dr. Walton office for follow-up though because of the co-pay she did not make an appointment. She presents today, 2 days later, with worsening abdominal pain. CT was repeated and showed no changes from 2 days prior. There is no obstruction or strangulation. She has no leukocytosis or lactic acidosis. She was given pain medication emergency department as well as anti-emetics. I did speak directly with the general surgeon on-call who felt comfortable with her following on outpatient basis rather than her requiring an emergent surgical intervention at this time. Advised the patient that she needs to call the office back and get an appointment as this is the definitive treatment option. [facility] PATIENT NAME: REBEKA MARES [address] [facility] [address] MEDICAL REC #: [id number] [place] [address] EMERGENCY DEPARTMENT CHART EMERGENCY DEPARTMENT PHYSICIAN Patient did agree to this and she will call tomorrow. Consults: 18:55: Dr. Funk; general surgery; spoke to directly in Ed, discussed patient, felt comfortable sending patient home with outpatient follow-up and with pain medication. He reviewed imaging findings. Additional Information: Old records reviewed. Discussed Results, Diagnosis and Follow-Up with Patient. Prescription given (norco). Clinical Impression: 1. acute incarcerated incisional hernia, no obstruction Disposition: Discharged *Home. Condition: Good Direct patient care supervision and electronic documentation review by Arturo Ortiz on 06/06/2018 21:11. : FlexChartData Event Time: 06/06/2018 21:05 Status: Signed [facility] Rebeka Mares [[id number]] Attending Physician 1985 Addendum (V2b) Chart created at 06/06/2018 20:29 by Arturo Ortiz Chart closed at 06/06/2018 20:30 Entry in Emergency Department at 06/06/2018 12:43, departure at 06/06/2018 20:10 [facility] PATIENT NAME: REBEKA MARES [address] [facility] [address] MEDICAL REC #: [id number] [place] [address] EMERGENCY DEPARTMENT CHART EMERGENCY DEPARTMENT PHYSICIAN Patient Name: Rebeka Mares Record Number: [id number] Date: 06/06/2018 20:29 Entered Department at: 06/06/2018 12:43 Patient Seen at: 06/06/2018 16:36 PCP: *None,. Chief Complaint:LUQ abdomen pain x4 days. Dx with hernia 4 years ago, has not had surgery d/t no insurance Medical Decision Making Patient presents with discomfort related to known abdominal wall hernia. CT scan shows no obstruction. Lab testing was okay. Case discussed with on-call surgeon who recommends discharge home and follow-up with surgeon she was referred to at time of most recent ED visit. Pain medication prescribed. Patient does not have any rebound, guarding or peritoneal signs on my exam; exam is nonsurgical MSE completed. I was the primary ED attending.. I confirm that I have evaluated the patient, reviewed the mid-level providers documentation, and discussed the evaluation, plan of care and disposition of the patient with the mid-level provider.. : Discharge Report Event Time: 06/06/2018 19:34 ===DISCHARGE REPORT=== : FlexChartData Event Time: 06/06/2018 17:10 [facility] : MaryDadariusz Event Time: 06/06/2018 21:05 : Discharge Report Event Time: 06/06/2018 19:34 Status: Draft Reasons to Return to the ER: [facility] PATIENT NAME: REBEKA MARES [address] MEDICAL REC #: [id number] [place] [address] EMERGENCY DEPARTMENT CHART EMERGENCY DEPARTMENT PHYSICIAN You must return to the ER for any new, worsening or changing symptoms, or if you feel more ill or sick in any way. This is the most important thing to remember. Follow-up: The care you received in the ER was given on an emergency basis only, and it is often not possible to completely treat or diagnose a problem in a single ER visit. You must see your follow-up doctor for a recheck within a week unless you receive instructions with a different timeframe for follow-up. Please follow all your discharge instructions. Medications: Unless the ER doctor tells you differently, you should take all your regular medications and any new medications prescribed today. Because it is not possible for the ER doctor to review all of your medication side effects or interactions, you must review possible side effects and interactions with your pharmacist when you get your prescriptions filled. EKG and Radiology Results: A orthopedic surgeon or radiologist will review any EKG or radiology results provided by the ER doctor. We will contact you if the results in the final EKG or radiology reports require a change in treatment. Culture Results: Cultures may have been ordered during your ER visit. We will contact you if the culture results require a change in treatment. Referrals: Most referrals to specialists come from the on-call list You should make your regular doctor aware of any referrals before you schedule the appointment so that they are aware and can make suggestions DIAGNOSIS: [facility] PATIENT NAME: REBEKA MARES [address] MEDICAL REC #: [id number] [place] [id number] EMERGENCY DEPARTMENT CHART EMERGENCY DEPARTMENT PHYSICIAN acute incarcerated incisional hernia, no obstruction INSTRUCTIONS: You must follow-up with general surgery as this is the definitive treatment. Pain medicine as prescribed for home. Please call the general surgeon, Dr. Walton, whose referral is once again provided. With fevers over 100.4 or severely worsening symptoms please report back however at this time there is no indication of an emergent process however this does need tended to. UNLESS THE ER DOCTOR GIVES YOU OTHER INSTRUCTIONS, YOU MUST SEE YOUR FOLLOW-UP DOCTOR WITHIN 1 TO 2 DAYS FOR RECHECK. YOU MUST RETURN TO THE ER RIGHT AWAY FOR ANY OF THE FOLLOWING:Increasing painChange in the location of the painNew or increasing fever or chillsNew or increasing constipation or difficulty urinatingNew or increasing abdominal swelling or bloatingBlood appears in the stool, vomit or urineNew or increasing vomiting or diarrhea.New or increasing weakness or dizzinessEarly appendix infection is always a possibility and you must return if the pain moves to the lower right side of your abdomen REFERRAL Vinh Walton MD (General Surgery), , fax: Please call the above number to schedule a follow-up appointment. 2-3 days MEDICATIONS We have given you these prescriptions that you must fill and start taking: Antlers 5 mg-325 mg tablet, count:20, Dose = 1-2, count:20, 5 days, count:20, q8hrs, count:20, Number of Refills = 0, count:20, R10.8, count:20 [facility] PATIENT NAME: REBEKA MARES [facility] [address] MEDICAL REC #: [id number] [place] [address] EMERGENCY DEPARTMENT CHART EMERGENCY DEPARTMENT PHYSICIAN COMMENTS: Patient Satisfaction: Within the first few days after your visit, you will receive an email and/or phone call regarding your visit. We value your feedback, and would appreciate it if you would take the time to complete this short survey. If you receive a call, it will be between 6p and 8p. EXCUSED ABSENCE FROM WORK AND SCHOOL. Please excuse the above named patient from work/school until 2 days from discharge (06/08/2018). My signature below indicates that I have received and understand the oral instructions regarding my medical problem. I also acknowledge receipt of this written instruction sheet including a list of major tests and procedures ordered during my visit. I will arrange for follow-up care as indicated by these instructions and referrals. This signed original will be kept in my medical record. Your signature below indicates consent for Case Management to contact communityhealthcare providers in an effort to meet your ongoing healthcare needs. This will allow forcontinuity of care once you leave the Emergency Department. This exchange of informationwill include, but not be limited to, disclosure of your patient information and possible release of records. 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 Dx with hernia 4 years ago, has not had surgery d/t no insurance Arrival Date: 06/06/2018 12:43 Triage Date: 06/06/2018 12:58 Mode of Arrival: *Privately Owned Vehicle Transfer From: * Home WC: N Language: Senegalese Transport: Ambulatory/Walk In BED A12 In: 06/06/2018 16:32:45 06/06/2018 16:32:45 KMGA A12 (Removed From) Out: 06/06/2018 20:10:41 06/06/2018 20:10:41 [facility] PROVIDERS BENNETT Calle Provider Contact: 06/06/2018 16:36:26 [facility] End: MD Arturo Ortiz Provider Contact: 06/06/2018 16:36:31 JOSE CRUZ End: TAMY LOPEZ Provider Contact: 06/06/2018 16:58:35 [facility] End: [facility] PATIENT NAME: REBEKA MARES [address] [facility] [address] MEDICAL REC #: [id number] [place] [address] EMERGENCY DEPARTMENT CHART EMERGENCY DEPARTMENT PHYSICIAN TRIAGE HISTORY ALLERGIES Allergic To: Zofran - Hives 06/06/2018 13:00 JIF Allergic To: Toradol - Hives 06/06/2018 13:00 JIF CURRENT MEDS Name: None 06/06/2018 20:00 [facility] ILLNESS Illness: *None 06/06/2018 13:00 JIF PAST SURGERY HIST Surgery: Cholecystectomy 06/06/2018 13:00 JIF Surgery: Appendectomy 06/06/2018 13:00 JIF Surgery: X3 06/06/2018 13:00 JIF Surgery: Bio reflux 06/06/2018 13:00 JIF Surgery: Mass removed LLQ 06/06/2018 13:00 JIF Surgery: Abcess drained from abdomin 06/06/2018 13:00 JIF Surgery: Hernia Repair x2 06/06/2018 13:00 JIF PAST SOCIAL HIST Social History: Behavior age appropriate 06/06/2018 13:00 JIF Social History: Communicates without difficulty 06/06/2018 13:00 JIF Social History: Lives with family or significant other 06/06/2018 13:00 JIF Social History: Smoker-None 06/06/2018 13:00 JIF Social History: Alcohol-Rarely 06/06/2018 13:00 JIF [facility] PATIENT NAME: VISHNUREBEKA Miki [address] [place] MEDICAL REC #: [id number] [place] [address] EMERGENCY DEPARTMENT CHART EMERGENCY DEPARTMENT PHYSICIAN Social History: Have you traveled in the past month? Where no 06/06/2018 13:00 JIF PAST [place]SE[place] HIST Social History: Last Menstrual Period 2 weeks ago 06/06/2018 13:00 JIF IMMUNIZATIONS Immunization: *Not Applicable 06/06/2018 13:00 JIF NURSING ASSESSMENT ASSESSMENT NOTES 06/06/2018 17:23 Patient reports her hernia on her left upper abdomen came out again. Reports nausea, vomiting, dizziness, and lightheadedness. Skin is warm, dry, and pink. Respirations are even and unlabored. Lungs have inspiratory and expiratory wheezes. Abdomen is soft, tender, and bowel sounds present x4. Patient moves all extremities with purpose. Patient is AOx4. Call light within reach. 06/06/2018 17:24 [facility] 06/06/2018 18:58 BMP REDRAWN AND SENT AT THIS TIME 06/06/2018 18:59 [facility] TREATMENT 06/06/2018 17:22 Staff/ Patient Interaction - Introduced self and assessed patients needs. 06/06/2018 17:23 [facility] 06/06/2018 17:22 Staff/ Patient Interaction - Call light placed within reach. 06/06/2018 17:23 [facility] 06/06/2018 17:22 Patient Interaction - Allergy Band on Pt. 06/06/2018 17:23 [facility] 06/06/2018 17:22 Patient Interaction - Name Band on Pt 06/06/2018 17:23 CD[facility] PATIENT NAME: REBEKA MARES [facility] [address] [place] MEDICAL REC #: [id number] [place] [address] EMERGENCY DEPARTMENT CHART EMERGENCY DEPARTMENT PHYSICIAN 06/06/2018 17:22 Hourly Rounding - Rounding 06/06/2018 17:23 [facility] Elimination/Toileting Y Pain 8 Position Comfortable Y Safe Environment Y Fall Risk Change N 06/06/2018 17:22 Primary DOC Guide - A. 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 Fall Risk Assessment (Age andlt;65) 06/06/2018 17:23 CD[facility] History of Falling in last 3 months? No (0) Confusion or Disorientation? No (0) Intoxicated or Sedated? No (0) Impaired Gait? No (0) Mobility Assist Device Used? No (0) Altered Elimination? No (0) Fall Risk Score 1-2 Points = Low Risk. 3-4 Points = Moderate Risk. 5 or more points = High Risk. 0 Fall Score Greater andgt;= 3? No 06/06/2018 17:23 Primary DOC Guide - D. Psychosocial Assessment 06/06/2018 17:23 CD[facility] Over the Last 2 weeks, how often have you had little interest or pleasure in doing things (0) Not at All Is Psychosocial Assessment Score 3 or more? If score is 3 or more please consult ED Navigator! No Total Psychosocial Assessment Score 0 Over the last 2 weeks, how often have you been feeling down, depressed or hopeless (0) Not at All 06/06/2018 17:23 Primary DOC Guide - E. Family Violence [facility] PATIENT NAME: REBEKA MARES Miki [address] [place] MEDICAL REC #: [id number] [place] [address] EMERGENCY DEPARTMENT CHART EMERGENCY DEPARTMENT PHYSICIAN Assessment 06/06/2018 17:23 CD[facility] Within the past year, has anyone ever pushed, shoved, slapped, choked, hit, punched or kicked you: No Within the past year, has anyone ever pressured or forced you to have sexual activities when you did not want to: No Do you feel safe and well cared for: Yes Is there a partner from a previous or current relationship that is making you feel unsafe now: No 06/06/2018 18:10 Hourly Rounding - Rounding 06/06/2018 18:10 CD[facility] Elimination/Toileting Y Pain 6 Position Comfortable Y Safe Environment Y Assessment Note pain reassessment Fall Risk Change N 06/06/2018 18:49 Physician Call - called at [phone] 06/06/2018 18:50 AAR 06/06/2018 18:49 Physician Call - answered at [phone] 06/06/2018 18:50 AAR 06/06/2018 19:11 Hourly Rounding - Rounding 06/06/2018 19:12 CD[facility] Elimination/Toileting Y Pain 7 Position Comfortable Y Safe Environment Y Fall Risk Change N 06/06/2018 20:08 Hourly Rounding - Rounding 06/06/2018 20:09 [facility] Elimination/Toileting Y Pain 7 Position Comfortable Y Safe Environment Y Fall Risk Change N 06/06/2018 20:08 Admit/Discharge - *Discharge instructions/tests andamp; procedures/med list reviewed and provided; prescriptions given to patient 06/06/2018 20:09 [facility] Notes: Patient encouraged to follow up and to return with [facility] PATIENT NAME: REBEKA MARES [facility] [address] [place] MEDICAL REC #: [id number] [place] [address] EMERGENCY DEPARTMENT CHART EMERGENCY DEPARTMENT PHYSICIAN any new or worsening symptoms. 06/06/2018 20:09 Admit/Discharge - Ambulated with steady gait home 06/06/2018 20:09 CD[facility] Notes: Exited department with dinkey driver MEDICATIONS IV IV Fluid: B 06/06/2018 17:21 06/06/2018 17:21 [facility] Line #: 1 Fluid: Saline Lock Rate: ml/hr Location: hand left Ndl Gauge: 22 # Attempts: 2 Notes: Flushes well and aspirates blood. No s/s of infiltration IV Fluid: S 06/06/2018 17:21 06/06/2018 20:07 CD[facility] Line #: 1 Fluid: 0.9% NS 1000cc bag Rate: ml/hr 999 Location: hand left Ndl Gauge: 22 # Attempts: 2 Amt: 1000 IV Fluid: D 06/06/2018 20:07 06/06/2018 20:07 CD[facility] Line #: 1 Fluid: 0.9% NS 1000cc bag Rate: ml/hr 999 Location: hand left Ndl Gauge: 22 # Attempts: 2 Notes: NO S/S OF INFILTRATION IV Fluid: E 06/06/2018 20:07 06/06/2018 20:07 [facility] Line #: 1 Rate: ml/hr Location: hand left Ndl Gauge: 22 # Attempts: 2 Notes: IV CATHETER INTACT. DRESSING APPLIED. NO S/S OF INFILTRATION I AND O [facility] PATIENT NAME: REBEKA MARES [facility] [address] [place] MEDICAL REC #: [id number] [place] [address] EMERGENCY DEPARTMENT CHART EMERGENCY DEPARTMENT PHYSICIAN VITALS VS-ROUTINE Time: 06/06/2018 12:58 B/P: 151/85 - Left Upper Arm - Sitting - Machine Pulse: 111 - Continuity Clerk Resp: 18 Sa02: 98 Room Air Temp: 99.00 F - 06/06/2018 13:00 JIF VS-Pain Time: 06/06/2018 12:58 Pain Level: 8 06/06/2018 13:00 JIF VS-GCS Time: 06/06/2018 12:58 Visual: 4 Verbal: 5 Motor: 6 GCS Total: 15 06/06/2018 13:00 JIF VS-HT/WT Time: 06/06/2018 12:58 Weight: 283 lbs Stated 06/06/2018 13:00 JIF VS-Visual Time: 06/06/2018 12:58 06/06/2018 13:00 JIF VS-FHT Time: 06/06/2018 12:58 06/06/2018 13:00 JIF VS-Notes Time: 06/06/2018 12:58 map 111 06/06/2018 13:00 JIF VS-ROUTINE Time: 06/06/2018 17:21 B/P: 133/72 - *Right Forearm - Lying - Machine Pulse: 95 - Monitor Resp: 20 Sa02: 95 Room Air 06/06/2018 17:22 CDCA VS-Pain Time: 06/06/2018 17:21 Pain Level: 8 06/06/2018 17:22 CDCA VS-GCS Time: 06/06/2018 17:21 Visual: 4 Verbal: 5 Motor: 6 GCS Total: 15 06/06/2018 17:22 CD[facility] VS-HT/WT Time: 06/06/2018 17:21 06/06/2018 17:22 CDCA VS-Visual Time: 06/06/2018 17:21 06/06/2018 17:22 CDCA VS-FHT Time: 06/06/2018 17:21 06/06/2018 17:22 CDCA VS-Notes Time: 06/06/2018 17:21 MAP 94 06/06/2018 17:22 CD[facility] VS-ROUTINE Time: 06/06/2018 19:12 B/P: 148/73 - *Right Forearm - Lying - Machine Pulse: 92 - Monitor Resp: 18 Sa02: 96 Room Air 06/06/2018 19:12 CDCA VS-Pain Time: 06/06/2018 19:12 Pain Level: 7 06/06/2018 19:12 CDCA VS-GCS Time: 06/06/2018 19:12 Visual: 4 Verbal: 5 Motor: 6 GCS Total: 15 06/06/2018 19:12 CD[facility] VS-HT/WT Time: 06/06/2018 19:12 06/06/2018 19:12 CDCA VS-Visual Time: 06/06/2018 19:12 06/06/2018 19:12 CDCA VS-FHT Time: 06/06/2018 19:12 06/06/2018 19:12 CDCA [facility] PATIENT NAME: REBEKA MARES [facility] [address] [place] MEDICAL REC #: [id number] [place] [address] EMERGENCY DEPARTMENT CHART EMERGENCY DEPARTMENT PHYSICIAN VS-Notes Time: 06/06/2018 19:12 MAP 103 06/06/2018 19:12 CDCA VS-ROUTINE Time: 06/06/2018 20:08 B/P: 141/85 - *Right Forearm - Sitting - Machine Pulse: 98 - Monitor Resp: 18 Sa02: 97 Room Air 06/06/2018 20:08 CDCA VS-Pain Time: 06/06/2018 20:08 Pain Level: 7 06/06/2018 20:08 CDCA VS-GCS Time: 06/06/2018 20:08 Visual: 4 Verbal: 5 Motor: 6 GCS Total: 15 06/06/2018 20:08 CDCA VS-HT/WT Time: 06/06/2018 20:08 06/06/2018 20:08 CDCA VS-Visual Time: 06/06/2018 20:08 06/06/2018 20:08 CDCA VS-FHT Time: 06/06/2018 20:08 06/06/2018 20:08 CD[facility] VS-Notes Time: 06/06/2018 20:08 map 108 06/06/2018 20:08 [facility] ORDERS Discharge patient 06/06/2018 19:49 N/A Ordered: 06/06/2018 19:34 By . Other Reviewed: 06/06/2018 19:49 By . Other TERRITORY SALES EXECUTIVE ORDER: GFRP 06/06/2018 19:20 None Ordered: 06/06/2018 19:20 Completed Time: 06/06/2018 19:20 Results Time: 06/06/2018 19:20 TERRITORY SALES EXECUTIVE ORDER: BMP 06/06/2018 19:20 None Ordered: 06/06/2018 19:20 Completed Time: 06/06/2018 19:20 Results Time: 06/06/2018 19:20 CBC with diff 06/06/2018 17:27 N/A Ordered: 06/06/2018 16:46 By Heath Calle Completed Time: 06/06/2018 17:27 By Heath Calle Noted Time: 06/06/2018 17:21 CDCA Results Time: 06/06/2018 17:27 UA ccms (cath if unable to void in 30 mins) 06/06/2018 20:05 [facility] PATIENT NAME: REBEKA MARES [address] [place] MEDICAL REC #: [id number] [place] [address] EMERGENCY DEPARTMENT CHART EMERGENCY DEPARTMENT PHYSICIAN N/A Ordered: 06/06/2018 16:46 By Heath Calle Completed Time: 06/06/2018 20:05 By Heath Calle Noted Time: 06/06/2018 18:58 CD[facility] Question: Lab Urine Specimen Type Answer: Clean Catch Question: Also Culture, if indicated by UA results (Y or N) Answer: NO Results Time: 06/06/2018 20:05 Morphine (IV)*(4mg/ml) DOSE: 4 mg IV 06/06/2018 17:21 N/A Ordered: 06/06/2018 16:46 By Heath Calle Completed Time: 06/06/2018 17:[address] abd and pel with IV con only 06/06/2018 18:30 N/A Ordered: 06/06/2018 16:46 By Heath Calle Completed Time: 06/06/2018 18:30 By Heath Calle Indication: Abdominal Pain, known hernia, nonreducible Noted Time: 06/06/2018 18:17 Question: Are you or think you might be ? Answer: PENDING Question: Patient has history of true RCM allergy? Answer: NO (serum) 06/06/2018 17:44 N/A Ordered: 06/06/2018 16:46 By Heath Calle Completed Time: 06/06/2018 17:44 By Heath Calle Noted Time: 06/06/2018 17:20 CDCA Results Time: 06/06/2018 17:43 BMP 06/06/2018 17:21 N/A Ordered: 06/06/2018 16:46 By Heath Calle Noted Time: 06/06/2018 17:20 CDCA Lactic Acid Blood (POC) 06/06/2018 17:35 N/A Ordered: 06/06/2018 16:46 By Heath Calle [facility] PATIENT NAME: REBEKA MARES [facility] [address] [place] MEDICAL REC #: [id number] [place] [address] EMERGENCY DEPARTMENT CHART EMERGENCY DEPARTMENT PHYSICIAN Completed Time: 06/06/2018 17:35 By Heath Calle Noted Time: 06/06/2018 17:20 CDCA Results Time: 06/06/2018 17:35 IV NS bolus 1L over 60 min 06/06/2018 20:07 N/A Ordered: 06/06/2018 16:46 By Heath Calle Completed Time: 06/06/2018 20:07 By Heath Calle Noted Time: 06/06/2018 17:20 CDCA Reglan (IV)*(10mg/2ml) DOSE:10 mg IV 06/06/2018 17:21 N/A Ordered: 06/06/2018 16:46 By Heath Calle Completed Time: 06/06/2018 17:20 By Heath Calle Toradol (IV)*(30mg/ml) DOSE: 15 mg IV 06/06/2018 18:57 N/A Ordered: 06/06/2018 18:39 By Heath Calle Noted Time: 06/06/2018 18:50 CDCA Cancelled: 06/06/2018 18:57 [facility] Cancelled Reason: allergy DISCHARGE Diagnosis: acute incarcerated incisional hernia, no obstruction 06/06/2018 19:34 Disposition: Time: 06/06/2018 19:34 Discharge Time: 06/06/2018 20:10 Type: Discharge Condition: Stable for admission/discharge/transfer after emergency evaluation/treatment Category: *NOT APPLICABLE Referral: 06/06/2018 19:34 Admit Physician: . Other PRESCRIPTIONS Antlers 5 mg-325 mg tablet 06/06/2018 19:01 NM SI-2 q8hrs pain for 5 days [facility] PATIENT NAME: REBEKA MARES [address] MEDICAL REC #: [id number] [place] [address] EMERGENCY DEPARTMENT CHART EMERGENCY DEPARTMENT PHYSICIAN Additional Instructions: R10.8 Dispense: 20 / Refills: CHARGES 0.9% NS 1000cc bag QTY @ 1 06/06/2018 17:21 CD[facility] Auto Generated Charge SIGNATURE Arturo Calle PA-C [facility] TAMY LOPEZ CDCA [facility] PATIENT NAME: REBEKA MARES [address] MEDICAL REC #: [id number] [place] [address] EMERGENCY DEPARTMENT CHART EMERGENCY DEPARTMENT PHYSICIAN BMP Collected: 06/06/2018 Status: F Source: [facility] 6:53 PM [facility] [place] REPOSITORY TYPE CODE TESTS RESULT OUT OF RANGE REFERENCE UNITS LAB L500.59171 136-145 MMOL/L Normal NA 140 LAB L500.77975 3.5-5.1 MMOL/L Normal K 4.0 LAB L500.37300 98-107 MMOL/L High CL 108 LAB L500.20174 21-32 MMOL/L Normal CO2 22 LAB L500.23168 5-16 MMOL/L Normal AGAP 10 LAB L500.38967 70-100 MG/DL Normal GLU 94 Result Comment: 70-100- Normal Fasting; 100-125 Impaired Fasting; greater than 126 on more than one result- Diabetes. ADA guidelines. Results may be falsely elevated after the administration of Sulfapyridine. Results may be falsely depressed after the administration of Sulfasalazine. LAB L500.13195 7-26 MG/DL Normal BUN 8 LAB L500.36492 0.510-0.950 MG/DL Low CREAT 0.481 Result Comment: Patients receiving either N-Acetylcysteine (NAC) or Metamizole prior to venipuncture, may have falsely depressed results. LAB L500.70335 15-24 Normal BUN/CREA 17 LAB L500.65843 8.5-10.1 MG/DL Normal CALCIUM TOTAL 8.6 Performed By: #### L500.70593, L500.68999 #### [facility] [address] [place] [address] GFR EST Collected: 06/06/2018 Status: F Source: [facility] 6:53 PM [facility] REPOSITORY TYPE CODE TESTS RESULT OUT OF RANGE REFERENCE UNITS LAB L500.86067 ML/MIN Normal IF non-AFR Greater than AMER 60 LAB L500.35289 ML/MIN Normal IF Greater than AMER 60 Performed By: #### L500.32667, L500.02947 #### [facility] [address] [place] [address] UA COMPLETE Collected: 06/06/2018 Status: F Source: [facility] 6:53 PM [facility] REPOSITORY Order Comment: [place]: TYPE CODE TESTS RESULT OUT OF REFERENCE UNITS RANGE LAB L600.93678 UA COLOR Normal Yellow LAB L600.94427 CLEAR UA Normal APPEARANCE Hazy LAB L600.31162 1.005-1.030 UA SPEC Normal GRAV 1.051 LAB L600.55283 UA PH Normal 6.0 LAB L600.29991 UA GLUCOSE Normal NEG LAB L600.95391 UA KETONE Normal 20 LAB L600.78591 UA Normal BILIRUBIN NEGATIVE LAB L600.52738 UA Normal UROBILINOGEN NEG LAB L600.32503 NEGATIVE UA PROTEIN Normal NEGATIVE LAB L600.52846 NEGATIVE UA BLOOD Normal SMALL LAB L600.20301 NEGATIVE UA NITRITE Normal NEGATIVE LAB L600.35295 NEGATIVE UA LK Normal ESTERASE NEG LAB L600.13951 0-5 WBC/HPF UA WBC Normal 3 LAB L600.50971 0-3 RBC/HPF UA RBC High 8 LAB L600.65914 0-5 EPI/HPF SQUAMOUS High EPIS 6 LAB L600.31323 NONE /HPF UA BACTERIA Normal TRACE LAB L600.86429 MUCUS Normal TRACE Performed By: #### L600.29400 #### [facility] [address] [place] [address] LACTATE BLOOD Collected: 06/06/2018 Status: F Source: [facility] 5:17 PM [facility] REPOSITORY Order Comment: [place]: M TYPE CODE TESTS RESULT OUT OF RANGE REFERENCE UNITS LAB L550.45234 0.40-2.00 MMOL/L Normal LACTATE BLOOD 1.69 Performed By: #### L550.90989 #### [facility] [address] [place] [address] CBC W/DIFF Collected: 06/06/2018 Status: F Source: [facility] 5:17 PM [facility] REPOSITORY Order Comment: [place]: M TYPE CODE TESTS RESULT OUT OF RANGE REFERENCE UNITS LAB L200.90145 4.5-11.0 K/CU MM High WBC 11.4 LAB L200.61478 3.90-5.30 M/CU MM RBC Normal 4.91 LAB L200.81277 11.5-15.5 G/DL HGB Normal 14.8 LAB L200.41267 35.0-47.0 % HCT Normal 43.8 LAB L200.67275 80.0-99.0 fl MCV Normal 89.2 LAB L200.13371 32.0-36.0 GM/DL MCHC Normal 33.8 LAB L200.05645 11-14.5 RDW Normal 12.8 LAB L200.70630 9.4-12.4 Low MPV 9.1 LAB L200.39669 150-450 K/CU MM PLT Normal 282 LAB L200.68243 45-75 % NEUTROPHILS Normal % 72.0 LAB L200.00004 Less than 2 % IMMATURE Normal GRAN % 0.5 LAB L200.20306 20-40 % LYMPH % Normal 20.0 LAB L200.36829 2-10 % MONOCYTE % Normal 5.6 LAB L200.28397 0-5 % EOSINOPHIL Normal % 1.6 LAB L200.32494 0-2 % BASOPHIL % Normal 0.3 LAB L200.38775 2.0-8.3 K/CU MM NEUTROPHIL Normal ABS 8.20 LAB L200.80258 Less than 2 K/CU MM IMMATR GRAN Normal ABS 0.10 LAB L200.91348 0.9-4.4 K/CU MM LYMPH ABS Normal 2.30 LAB L200.78346 0.1-1.1 K/CU MM MONO ABS Normal 0.60 LAB L200.77656 0-0.5 K/CU MM EOS ABS Normal 0.20 LAB L200.84851 0-0.2 K/CU MM BASO ABS Normal 0.00 LAB L200.10292 Less than 1 % NRBC Normal 0.0 Performed By: #### L200.06034 #### [facility] [address] [place] [address] HCG Collected: 06/06/2018 Status: F Source: [facility] 5:17 PM [facility] REPOSITORY Order Comment: [place]: TYPE CODE TESTS RESULT OUT OF RANGE REFERENCE UNITS LAB L500.06127 NEGATIVE Normal HCG SER NEGATIVE RESULT Performed By: #### L500.86878 #### [facility] [address] [place] [address] CT ABD/PEL W IV Observed: 06/06/2018 Status: F Source: [facility] CONTRAST ONLY 3:38 PM [facility] REPOSITORY CT ABD/PEL W IV CONTRAST ONLY Ordering Physician: Heath Calle 06/06/2018 4:[address] ABDOMEN AND PELVIS WITH IV CONTRAST: Clinical Statement: Abdominal pain, known hernia, nonreducible Comparison: CT abdomen pelvis 06/04/2018 TECHNIQUE: Contiguous transaxial 3.75 mm slices were obtained through the abdomen and pelvis following the uneventful administration of 100 cc of Isovue 300 IV contrast. Coronal reformats were also obtained. FINDINGS: Minimal atelectasis seen at the lung bases. There is diffuse low-density of the liver compatible with hepatic steatosis. Postoperative changes of cholecystectomy are seen. The spleen, adrenal glands, and pancreas are unremarkable. Subcentimeter hypodensities are seen in the bilateral kidneys which most likely represent cysts. A few diverticuli are seen in the sigmoid and descending colon. Left anterior abdominal wall hernia containing part of the transverse colon and mesenteric fat is not significantly changed. The neck of the hernia measures about 4.3 cm, unchanged. There are multiple small adjacent fat-containing hernias. The uterus is present. There are bilateral tubal ligation devices. A dilated loop of small bowel at the anastomotic suture site in the left upper abdomen is not significantly changed. There is no bowel obstruction. No acute osseous findings are seen. IMPRESSION: Unchanged anterior abdominal wall hernia containing part of the transverse colon and mesenteric fat. A report was sent to the Emergency Department at the time of dictation. ---- Electronic Signature on File ---- Signed By: Markus Contreras MD [email or web address] Dictated: 06/06/2018 6:14 PM Signed: 06/06/2018 6:21 PM Reported By: MARKUS CONTRERAS M.D. Signed By: MARKUS CONTRERAS M.D. ED DOC Observed: 06/04/2018 Status: UNK Source: [facility] 5:08 PM [facility] REPOSITORY This is a preliminary report only, as the practitioner review and authentication has not occurred. ED DOC Observed: 06/04/2018 Status: UNK Source: [facility] 5:08 PM [facility] REPOSITORY PHYSICIAN ASSESSMENT RECORDS : FlexChartData Event Time: 06/04/2018 16:40 Status: Signed [facility] Rebeka Vishnu [[id number]] Mid-Level Chart (V2b) 32 / F / 1985 Chart created at 06/04/2018 16:28 by Bola Bruce Chart closed at 06/04/2018 16:38 Entry in Emergency Department at 06/04/2018 11:47, departure at 06/04/2018 17:08 Patient Name: Rebeka Mares Record Number: [id number] Date: 06/04/2018 16:28 Entered Department at: 06/04/2018 11:47 Patient Seen at: 06/04/2018 14:02 Historian: Patient PCP: *None,. Chief Complaint:pt comes in with abd pain, pt stated that her hernia popped out this morning Temperature: 97.7 F (36.5 C). Pulse: 87. Respiratory Rate: 20. Blood-pressure: 122/58. Oxygen Saturation: 96%. History of Present Illness: I agree with nurses notes she was in the shower and bent over twice and here off of her leg when she felt her hernia pop out. She could not get it to reduce. She came in for evaluation of same. She has had increasing pain, nausea, vomiting. She does have a history of a surgical repair for a ventral hernia. He did require 1 redo thus far by a physician out in [place]. She has since moved to the [facility] but does not have a surgeon for follow-up locally. [facility] PATIENT NAME: REBEKA MARES [address] [place] MEDICAL REC #: [id number] [place] [address] EMERGENCY DEPARTMENT CHART EMERGENCY DEPARTMENT PHYSICIAN HPI Elements: Onset:(Today); Timing: Sudden Onset; Location: Upper abdomen; Quality: Aching; Severity: maximum Moderate, now Mild; Context: At Rest; Exacerbated by: Palpation; Alleviated by: Nothing Associated symptoms: None. Review of Systems. Constitutional: negative for Fever Eyes: negative for Eye Pain Ear/Nose/Throat: negative for Sore Throat Cardio-Vascular: negative for Chest Pain Respiratory: negative for Dyspnea GI: positive for Abd. Pain, Nausea and Vomiting, negative for Diarrhea : negative for Dysuria Musculo-Skeletal: negative for Back Pain Neurological: negative for Headache Hem/Endo: negative for Bleeding Immunology: negative for Joint Pain All other systems reviewed and negative.. Past History, Medications, Allergies, Social History and Family History reviewed in nurses note. Medications: Reviewed RN Note. Allergies: Reviewed RN Note Zofran(Hives), Toradol(Difficulty Breathing), TORADOL(CHEST TIGHTNESS), Toradol(Hives) Social History: Reviewed RN Note. Family History: Reviewed RN Note Physical Examination: General: Alert and Well Developed HEENT: Normal ENT inspection. Eyes: Lids Normal; . Oropharynx / Throat: Normal Pharynx. Neck: No Lymphadenopathy, No Meningismus and Supple Respiratory: No Resp Distress and Normal Breath Sounds Cardio-Vascular: No murmur, No rub and RRR Abdomen: Normal Bowel Sounds and Soft; Morbidly obese abdomen with protruding ventral hernia superior aspect of the incision site Back: No CVA tenderness, No Midline Tenderness and Non-tender Extremity: No edema Neurological: No Gross Weakness Skin: No rash, No Petechiae, Warm and Dry Psychological: Mood/Affect Normal and Normal Memory/Judgment BMP, information as of 06/04/2018, 2:12 pm [facility] PATIENT NAME: REBEKA MARES [facility] [address] [facility] MEDICAL REC #: [id number] [place] [address] EMERGENCY DEPARTMENT CHART EMERGENCY DEPARTMENT PHYSICIAN 138 --------+--------+--------andlt; 105* Anion Gap = 10 5.0 BUN/CREA: 19; CALCIUM TOTAL: 9.9 Mg/Dl CBC W/DIFF, information as of 06/04/2018, 2:12 pm 90.2 / 14.8 / 12.4* andgt;------andlt; 292 / 44.2 / N:68.6 BASO ABS: 0.10 K/Cu Mm; BASOPHIL %: 0.5 %; EOS ABS: 0.20 K/Cu Mm; EOSINOPHIL %: 1.8 %; IMMATR GRAN ABS: 0.10 K/Cu Mm; IMMATURE GRAN %: 0.7 %; LYMPH %: 22.8 %; LYMPH ABS: 2.80 K/Cu Mm; MCHC: 33.5 Gm/Dl; MONO ABS: 0.70 K/Cu Mm; MONOCYTE %: 5.6 %; MPV: 9.3; NEUTROPHIL ABS: 8.50 K/Cu Mm; NRBC: 0.0 %; RBC: 4.90 M/Cu Mm; RDW: 12.7 LIPASE, information as of 06/04/2018, 2:12 pm LIPASE: 139 U/L LIVER, information as of 06/04/2018, 2:12 pm A/G RATIO: 1.3; ALBUMIN: 4.1 Gm/Dl; ALK PHOS: 56 U/L; BILI DIRECT: Less Than 0.05 Mg/Dl; BILI TOTAL: 0.3 Mg/Dl; GLOBULIN: 3.1 Gm/Dl; SGOT (AST): 24 U/L; SGPT (ALT): 24 Iu/L; TP: 7.2 Gm/Dl HCG, information as of 06/04/2018, 2:12 pm HCG SER RESULT: Neg Imaging Study Obtained: CT ABD/PEL W IV CONTRAST ONLY Imaging Study Obtained: CT ABD/PEL W IV CONTRAST ONLY, Status:Signed Report Available CT ABD/PEL W IV CONTRAST ONLY Ordering Physician: Bola Bruce 06/04/2018 2:[address] ABDOMEN PELVIS IV CONTRAST ONLY [facility] PATIENT NAME: VISHNUREBEKA [address] MEDICAL REC #: [id number] [place] [address] EMERGENCY DEPARTMENT CHART EMERGENCY DEPARTMENT PHYSICIAN Clinical Statement: Abdominal pain Comparison: CT abdomen and pelvis 05/03/2017 FINDINGS: CT of the abdomen and pelvis was performed following intravenous administration of 100 cc of Isovue-300. Lack of oral contrast limits assessment of the bowel. The included lung bases show no acute findings. There is no free air. Cystocele seen involving the bladder. Uterus and ovaries are not enlarged. There are bilateral tubal occlusive devices present. There is an unchanged anastomosis involving the small bowel of the left lateral abdomen. There is dilatation in this region measuring up to 4.8 cm. Bowel proximally and distally is not dilated. Gallbladder surgically absent. There is a hernia of fat and now containing a short segment of uncompromised transverse colon just to the left of midline in the periumbilical region. Bowel proximally and distally is not distended. Caudal to this there is a small ventral hernia of fat. There is no ascites. The aorta is normal course and caliber. [facility] PATIENT NAME: REBEKA MARES [address] MEDICAL REC #: [id number] [place] [address] EMERGENCY DEPARTMENT CHART EMERGENCY DEPARTMENT PHYSICIAN The liver shows steatosis. The liver and spleen are again mildly enlarged. Pancreas and adrenals are not enlarged. No CT abnormality of either kidney is seen. IMPRESSION: Increase in size of an anterior abdominal wall hernia just to left of midline containing fat and now a short segment of transverse colon. The defect in the abdominal wall has increased in size now measuring 4.2 cm. There is no obvious bowel compromise. Unchanged dilatation at a small bowel anastomosis. Hepatosplenomegaly with steatosis. ---- Electronic Signature on File ---- Signed By: Tom Matthew MD [email or web address] Dictated: 06/04/2018 3:58 PM Signed: 06/04/2018 4:03 PM Reported By: TOM MATTHEW M.D. Radiology: Interpreted by Radiologist. Medical Decision Making 32-Year-old female with abdominal pain and a history of abdominal hernia. She had been medicated twice and given anti-emetics. Her pain has subsided to the point [facility] PATIENT NAME: REBEKA MARES [address] MEDICAL REC #: [id number] [place] [id number] EMERGENCY DEPARTMENT CHART EMERGENCY DEPARTMENT PHYSICIAN where I could lay her flat and reduce the hernia. She tried to do the same herself, however, with limited success due to the lower lid discomfort she was having. CT scan does not identify any obstruction or any ischemic event. She does have a progressively larger hernia. Patient will be discharged with a surgical follow-up. She will also be put on pain medication and antiemetics. During reassessment, she did notice some residual discomfort, but but no means as bad as it was on her original arrival Additional Information: Discussed Results, Diagnosis and Follow-Up with Patient. Prescription given. Clinical Impression: 1. Abdominal pain 2. Large ventral hernia Disposition: Discharged *Home. Condition: Good Direct patient care supervision and electronic documentation review by Cody Flynn on 06/04/2018 18:30. : FlexChartData Event Time: 06/04/2018 17:15 Status: Signed [facility] Rebeka Mares [[id number]] Attending Physician / / 1985 Chart (V2b) Chart created at 06/04/2018 16:41 by Cody Flynn Chart closed at 06/04/2018 16:42 Entry in Emergency Department at 06/04/2018 11:47, departure at 06/04/2018 17:08 Patient Name: Rebeka Mares Record Number: [id number] [facility] PATIENT NAME: REBEKA MARES [address] MEDICAL REC #: [id number] [place] [address] EMERGENCY DEPARTMENT CHART EMERGENCY DEPARTMENT PHYSICIAN Date: 06/04/2018 16:41 Entered Department at: 06/04/2018 11:47 Patient Seen at: 06/04/2018 14:02 PCP: *None,. Chief Complaint:pt comes in with abd pain, pt stated that her hernia popped out this morning MSE completed. I was the primary ED attending.. I confirm that I have reviewed the mid-level providers documentation and agree with the evaluation, plan of care and disposition.. : Discharge Report Event Time: 06/04/2018 16:40 ===DISCHARGE REPORT=== : FlexChartData Event Time: 06/04/2018 16:40 : FlexChartData Event Time: 06/04/2018 17:15 : Discharge Report Event Time: 06/04/2018 16:40 Status: Draft Reasons to Return to the ER: You must return to the ER for any new, worsening or changing symptoms, or if you feel more ill or sick in any way. This is the most important thing to remember. Follow-up: The care you received in the ER was given on an emergency basis only, and it is often not possible to completely treat or diagnose a problem in a single ER visit. You must see your follow-up doctor for a recheck within a week unless you receive instructions with a different timeframe for follow-up. Please follow all your discharge instructions. [facility] PATIENT NAME: REBEKA MARES [address] MEDICAL REC #: [id number] [place] [address] EMERGENCY DEPARTMENT CHART EMERGENCY DEPARTMENT PHYSICIAN Medications: Unless the ER doctor tells you differently, you should take all your regular medications and any new medications prescribed today. Because it is not possible for the ER doctor to review all of your medication side effects or interactions, you must review possible side effects and interactions with your pharmacist when you get your prescriptions filled. EKG and Radiology Results: A orthopedic surgeon or radiologist will review any EKG or radiology results provided by the ER doctor. We will contact you if the results in the final EKG or radiology reports require a change in treatment. Culture Results: Cultures may have been ordered during your ER visit. We will contact you if the culture results require a change in treatment. Referrals: Most referrals to specialists come from the on-call list You should make your regular doctor aware of any referrals before you schedule the appointment so that they are aware and can make suggestions DIAGNOSIS: Abdominal pain, Large ventral hernia INSTRUCTIONS: Return if vomiting, fever, or worsening symptoms Maintain follow-up with your general surgeon in [place] UNLESS THE ER DOCTOR GIVES YOU OTHER INSTRUCTIONS, YOU MUST SEE YOUR FOLLOW-UP DOCTOR WITHIN 1 TO 2 DAYS FOR RECHECK. YOU MUST RETURN TO THE ER RIGHT AWAY FOR ANY OF THE FOLLOWING:Increasing painChange in the location of [facility] PATIENT NAME: REBEKA MARES [address] MEDICAL REC #: [id number] [place] [address] EMERGENCY DEPARTMENT CHART EMERGENCY DEPARTMENT PHYSICIAN the painNew or increasing fever or chillsNew or increasing constipation or difficulty urinatingNew or increasing abdominal swelling or bloatingBlood appears in the stool, vomit or urineNew or increasing vomiting or diarrhea.New or increasing weakness or dizzinessEarly appendix infection is always a possibility and you must return if the pain moves to the lower right side of your abdomen REFERRAL Your regular doctor(s) Please call the above number to schedule a follow-up appointment. Vinh Walton MD (General Surgery), , fax: Please call the above number to schedule a follow-up appointment. MEDICATIONS We have given you these prescriptions that you must fill and start taking: Phenergan 25 mg tablet, count:12, Dose = 1, count:12, q8h, count:12 Antlers 5 mg-325 mg tablet, count:16, Dose = 1, count:16, 4 days, count:16,every 6 hours, count:16, Number of Refills = 0, count:16, ICD 10 K 46. 9, count:16 COMMENTS: Patient Satisfaction: Within the first few days after your visit, you will receive an email and/or phone call regarding your visit. We value your feedback, and would appreciate it if you would take the time to complete this short survey. If you receive a call, it will be between 6p and 8p. My signature below indicates that I have received and understand the oral instructions regarding my [facility] PATIENT NAME: REBEKA MARES [facility] [address] MEDICAL REC #: [id number] [place] [address] EMERGENCY DEPARTMENT CHART EMERGENCY DEPARTMENT PHYSICIAN medical problem. I also acknowledge receipt of this written instruction sheet including a list of major tests and procedures ordered during my visit. I will arrange for follow-up care as indicated by these instructions and referrals. This signed original will be kept in my medical record. Your signature below indicates consent for Case Management to [facility] in an effort to meet your ongoing healthcare needs. This will allow forcontinuity of care once you leave the Emergency Department. This exchange of informationwill include, but not be limited to, disclosure of your patient information and possible release of records. [employer] Patient: REBEKA MARES Sex: F : 1985 Age: 32 yr Account No: [id number] Registration Date: 11:47 06/04/2018 Address: [place] Address: [place] [address] REGISTRATION ED Number: [id number] Marital Status: D Financial Class: SELF TRIAGE Priority: 3 - Urgent Complaint: Abdominal Pain Stated Complaint: pt comes in with abd pain, pt stated that her hernia popped out this morning Arrival Date: 06/04/2018 11:47 Triage Date: 06/04/2018 11:48 Mode of Arrival: *Privately Owned Vehicle [facility] PATIENT NAME: REBEKA MARES [address] MEDICAL REC #: [id number] [place] [address] EMERGENCY DEPARTMENT CHART EMERGENCY DEPARTMENT PHYSICIAN Transfer From: * Home WC: N Language: Senegalese Transport: Ambulatory/Walk In BED E37 In: 06/04/2018 13:52:29 06/04/2018 13:52:29 SLHB E37 (Removed From) Out: 06/04/2018 17:08:01 06/04/2018 17:08:01 RSS PROVIDERS PAMilagros Bruce Provider Contact: 06/04/2018 14:02:29 LFD End: MD Cody Flynn Provider Contact: 06/04/2018 14:02:31 GJJ End: MARIE MILLER Provider Contact: 06/04/2018 14:06:03 DRBA End: TRIAGE HISTORY ALLERGIES Allergic To: Zofran - Hives 06/04/2018 11:50 KASD Allergic To: Toradol - Hives 06/04/2018 11:50 KASD ILLNESS Illness: *None 06/04/2018 11:50 KASD PAST SURGERY HIST Surgery: Cholecystectomy 06/04/2018 11:50 KASD Surgery: Appendectomy 06/04/2018 11:50 KASD [facility] PATIENT NAME: REBEKA MARES [address] MEDICAL REC #: [id number] [place] [address] EMERGENCY DEPARTMENT CHART EMERGENCY DEPARTMENT PHYSICIAN Surgery: X3 06/04/2018 11:50 KASD Surgery: Bio reflux 06/04/2018 11:50 KASD Surgery: Mass removed LLQ 06/04/2018 11:50 KASD Surgery: Abcess drained from abdomin 06/04/2018 11:50 KASD Surgery: Hernia Repair x2 06/04/2018 11:50 KASD PAST SOCIAL HIST Social History: Behavior age appropriate 06/04/2018 11:50 KASD Social History: Communicates without difficulty 06/04/2018 11:50 KASD Social History: Lives with family or significant other 06/04/2018 11:50 KASD Social History: Smoker-None 06/04/2018 11:50 KASD Social History: Alcohol-Rarely 06/04/2018 11:50 KASD Social History: Have you traveled in the past month? Where no 06/04/2018 11:50 KASD NURSING ASSESSMENT ASSESSMENT NOTES 06/04/2018 14:25 pt comes into the ED with abdominal pain. pt sts that her hernia is out and wont go back in. pt also complains of nausea/vomiting. pt is aandamp;o x4, breathing easy and non labored, abdomen is soft and round, +POP around hernia, bs x4. 06/04/2018 14:26 DRBA 06/04/2018 15:48 PT REFUSING NG TUBE AT THIS TIME. SUMMER Cano MADE AWARE 06/04/2018 15:49 RSS [facility] PATIENT NAME: REBEKA MARES [address] MEDICAL REC #: [id number] [place] [address] EMERGENCY DEPARTMENT CHART EMERGENCY DEPARTMENT PHYSICIAN TREATMENT 06/04/2018 14:27 Hourly Rounding - Rounding 06/04/2018 14:28 DRBA Elimination/Toileting N Pain 7 Position Comfortable Y Safe Environment Y 06/04/2018 14:27 Patient Interaction - Allergy Band on Pt. 06/04/2018 14:28 DRBA 06/04/2018 14:27 Patient Interaction - Name Band on Pt 06/04/2018 14:28 DRBA 06/04/2018 14:27 Staff/ Patient Interaction - Call light placed within reach. 06/04/2018 14:28 DRBA 06/04/2018 14:27 Staff/ Patient Interaction - Introduced self and assessed patients needs. 06/04/2018 14:28 DRBA 06/04/2018 14:27 Primary DOC Guide - A. 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 Fall Risk Assessment (Age andlt;65) 06/04/2018 14:28 DRBA History of Falling in last 3 months? No (0) Confusion or Disorientation? No (0) Intoxicated or Sedated? No (0) Impaired Gait? No (0) Mobility Assist Device Used? No (0) Altered Elimination? No (0) [facility] PATIENT NAME: REBEKA MARES [address] MEDICAL REC #: [id number] [place] [address] EMERGENCY DEPARTMENT CHART EMERGENCY DEPARTMENT PHYSICIAN Fall Risk Score 1-2 Points = Low Risk. 3-4 Points = Moderate Risk. 5 or more points = High Risk. 0 Fall Score Greater andgt;= 3? No 06/04/2018 14:27 Primary DOC Guide - D. Psychosocial Assessment 06/04/2018 14:28 DRBA Over the Last 2 weeks, how often have you had little interest or pleasure in doing things (0) Not at All Is Psychosocial Assessment Score 3 or more? If score is 3 or more please consult ED Navigator! No Total Psychosocial Assessment Score 0 Over the last 2 weeks, how often have you been feeling down, depressed or hopeless (0) Not at All 06/04/2018 14:28 Primary DOC Guide - E. Family Violence Assessment 06/04/2018 14:28 DRBA Within the past year, has anyone ever pushed, shoved, slapped, choked, hit, punched or kicked you: No Within the past year, has anyone ever pressured or forced you to have sexual activities when you did not want to: No Do you feel safe and well cared for: Yes Is there a partner from a previous or current relationship that is making you feel unsafe now: No Family Violence Clinical Observation All Negative Except 06/04/2018 15:58 Patient Transport - Patient returned from [facility]. 06/04/2018 15:58 J 06/04/2018 16:52 Admit/Discharge - *Discharge instructions/tests andamp; procedures/med list reviewed and provided; prescriptions given to patient 06/04/2018 16:52 RSS 06/04/2018 16:52 Admit/Discharge - Ambulated with steady gait home 06/04/2018 16:52 RSS MEDICATIONS IV IV Fluid: B 06/04/2018 14:58 06/04/2018 14:58 DRBA [facility] PATIENT NAME: REBEKA MARES [address] [address] MEDICAL REC #: [id number] [place] [address] EMERGENCY DEPARTMENT CHART EMERGENCY DEPARTMENT PHYSICIAN Line #: 1 Fluid: Saline Lock Rate: ml/hr Location: mid forearm right Ndl Gauge: 22 # Attempts: 3 Notes: flushes well, dressing applied IV Fluid: E 06/04/2018 16:52 06/04/2018 16:52 RSS Line #: 1 Rate: ml/hr Location: mid forearm right Ndl Gauge: 22 # Attempts: 3 Notes: CATH INTACT, DRESSING APPLIED I AND O VITALS VS-ROUTINE Time: 06/04/2018 11:52 B/P: 122/58 - Left Upper Arm - Sitting - Machine Pulse: 87 - Monitor Resp: 20 Sa02: 96 Room Air Temp: 97.70 F - Oral 06/04/2018 11:55 JWG VS-Pain Time: 06/04/2018 11:52 Pain Level: 7 06/04/2018 11:55 JWG VS-GCS Time: 06/04/2018 11:52 06/04/2018 11:55 JWG VS-HT/WT Time: 06/04/2018 11:52 Ht: 65 in. Stated Weight: 283 lbs Stated 06/04/2018 11:55 JWG VS-Visual Time: 06/04/2018 11:52 06/04/2018 11:55 JWG VS-FHT Time: 06/04/2018 11:52 06/04/2018 11:55 JWG VS-Notes Time: 06/04/2018 11:52 MAP-83 06/04/2018 11:55 JWG VS-ROUTINE Time: 06/04/2018 15:00 B/P: 126/78 - Left Upper Arm - Lying - Machine Pulse: 89 - Monitor Resp: 18 Sa02: 99 Room Air 06/04/2018 15:01 DRBA VS-Pain Time: 06/04/2018 15:00 06/04/2018 15:01 DRBA VS-GCS Time: 06/04/2018 15:00 Visual: 4 Verbal: 5 Motor: 6 GCS Total: 15 06/04/2018 15:01 DRBA VS-HT/WT Time: 06/04/2018 15:00 06/04/2018 15:01 DRBA VS-Visual Time: 06/04/2018 15:00 06/04/2018 15:01 DRBA VS-FHT Time: 06/04/2018 15:00 06/04/2018 15:01 DRBA [facility] PATIENT NAME: REBEKA MARES [facility] [address] MEDICAL REC #: [id number] [place] [address] EMERGENCY DEPARTMENT CHART EMERGENCY DEPARTMENT PHYSICIAN VS-Notes Time: 06/04/2018 15:00 map 92 06/04/2018 15:01 DRBA VS-ROUTINE Time: 06/04/2018 16:48 B/P: 112/66 - *Left Forearm - Lying - Machine Pulse: 75 - Monitor Resp: 18 Sa02: 93 Room Air 06/04/2018 16:48 JLMB VS-Pain Time: 06/04/2018 16:48 06/04/2018 16:48 JLMB VS-GCS Time: 06/04/2018 16:48 06/04/2018 16:48 JLMB VS-HT/WT Time: 06/04/2018 16:48 06/04/2018 16:48 JLMB VS-Visual Time: 06/04/2018 16:48 06/04/2018 16:48 JLMB VS-FHT Time: 06/04/2018 16:48 06/04/2018 16:48 JLMB VS-Notes Time: 06/04/2018 16:48 map 84 06/04/2018 16:48 JLMB ORDERS Discharge patient 06/04/2018 16:42 N/A Ordered: 06/04/2018 16:38 By . Other Reviewed: 06/04/2018 16:42 By . Other Dilaudid (IV)*(2mg/ml) DOSE: 1 mg IV 06/04/2018 15:33 N/A Ordered: 06/04/2018 15:27 By Bola Bruce Completed Time: 06/04/2018 15:32 By Bola Bruce Noted Time: 06/04/2018 15:29 RSS Compazine (IV)(10mg/2ml) DOSE: 10 mg IV 06/04/2018 15:29 N/A Ordered: 06/04/2018 15:22 By Bola Bruce Completed Time: 06/04/2018 15:28 By Bola Bruce Noted Time: 06/04/2018 15:24 RSS T[employer]ORY [employer]ES EXECUTIVE ORDER: HCG 06/04/2018 15:18 None Ordered: 06/04/2018 15:18 Completed Time: 06/04/2018 15:18 Results Time: 06/04/2018 15:18 Benadryl (IV)*(50mg/ml) DOSE: 25 mg IV 06/04/2018 15:06 [facility] PATIENT NAME: [facility]BEKA [facility]ES [facility] [address] MEDICAL REC #: [id number] [place] [address] EMERGENCY DEPARTMENT CHART EMERGENCY DEPARTMENT PHYSICIAN N/A Ordered: 06/04/2018 15:02 By Bola Bruce Completed Time: 06/04/2018 15:06 By Bola Bruce Noted Time: 06/04/2018 15:03 DRBA TERRITORY SALES EXECUTIVE ORDER: GFRP 06/04/2018 14:55 None Ordered: 06/04/2018 14:55 Completed Time: 06/04/2018 14:55 Results Time: 06/04/2018 15:18 Lab: Add On Test (excluding POC tests) 06/04/2018 16:24 N/A Ordered: 06/04/2018 14:24 By Bola Bruce Completed Time: 06/04/2018 16:24 By Bola Bruce Noted Time: 06/04/2018 14:28 DRBA Question: Test to be added: Answer: serum test IV hep lock 06/04/2018 14:28 N/A Ordered: 06/04/2018 14:07 By Bola Bruce Completed Time: 06/04/2018 14:[address] abd and pel with IV con only 06/04/2018 16:04 N/A Ordered: 06/04/2018 14:07 By Bola Bruce Completed Time: 06/04/2018 16:04 By Bola Bruce Indication: Abdominal Pain Noted Time: 06/04/2018 15:50 Question: Are you or think you might be ? Answer: NO Question: Patient has history of true RCM allergy? Answer: NO Phenergan (IVPB)(12.5mg/50ml NS) DOSE: 12.5 mg IV 06/04/2018 14:34 N/A Ordered: 06/04/2018 14:07 By Bola Bruce Completed Time: 06/04/2018 14:34 By Bola Bruce Noted Time: 06/04/2018 14:28 DRBA Morphine (IV)*(4mg/ml) DOSE:4 mg IV 06/04/2018 14:34 N/A [facility] PATIENT NAME: REBEKA MARES [address] MEDICAL REC #: [id number] [place] [id number] EMERGENCY DEPARTMENT CHART EMERGENCY DEPARTMENT PHYSICIAN Ordered: 06/04/2018 14:07 By Bola Bruce Completed Time: 06/04/2018 14:33 By Bola Bruce Noted Time: 06/04/2018 14:28 DRBA BMP 06/04/2018 14:55 N/A Ordered: 06/04/2018 14:07 By Bola Bruce Completed Time: 06/04/2018 14:55 By Bola Bruce Noted Time: 06/04/2018 14:21 DRBA Results Time: 06/04/2018 15:18 CBC with diff 06/04/2018 14:21 N/A Ordered: 06/04/2018 14:07 By Bola Bruce Completed Time: 06/04/2018 14:21 By Bola Bruce Results Time: 06/04/2018 14:21 Lipase 06/04/2018 14:55 N/A Ordered: 06/04/2018 14:07 By Bola Bruce Completed Time: 06/04/2018 14:55 By Bola Bruce Noted Time: 06/04/2018 14:21 DRBA Results Time: 06/04/2018 15:18 Liver profile 06/04/2018 14:55 N/A Ordered: 06/04/2018 14:07 By Bola Bruce Completed Time: 06/04/2018 14:55 By Bola Bruce Noted Time: 06/04/2018 14:21 DRBA Results Time: 06/04/2018 15:18 NG tube insertion 06/04/2018 16:24 N/A Ordered: 06/04/2018 15:22 By Bola Bruce Cancelled: 06/04/2018 16:24 LFD Cancelled Reason: pt refused DISCHARGE Diagnosis: Abdominal pain, Large ventral hernia 06/04/2018 16:41 CANCELLED DIAGNOSES Diagnosis Name: Abdominal pain, Large ventral hernia Disposition: Time: 06/04/2018 16:38 [facility] PATIENT NAME: REBEKA MARES [address] MEDICAL REC #: [id number] [place] [address] EMERGENCY DEPARTMENT CHART EMERGENCY DEPARTMENT PHYSICIAN Discharge Time: 06/04/2018 17:08 Type: Discharge Condition: Stable for admission/discharge/transfer after emergency evaluation/treatment Category: *NOT APPLICABLE Referral: 06/04/2018 16:40 Admit Physician: . Other PRESCRIPTIONS Phenergan 25 mg tablet 06/04/2018 16:39 SI q8h nausea Dispense: 12 / Refills: Antlers 5 mg-325 mg tablet 06/04/2018 16:39 SI q6h for 4 days Additional Instructions: ICD 10 K 46. 9 Dispense: 16 / Refills: CHARGES SIGNATURE Cody MUNOZ [facility] PATIENT NAME: REBEKA MARES [facility] [address] MEDICAL REC #: [id number] [place] [address] EMERGENCY DEPARTMENT CHART EMERGENCY DEPARTMENT PHYSICIAN CT ABD/PEL W IV Observed: 06/04/2018 Status: F Source: [facility] CONTRAST ONLY 2:28 PM [facility] REPOSIT[facility] CT ABD/PEL W IV CONTRAST ONLY Ordering Physician: Bola Bruce 06/04/2018 2:[address] ABDOMEN PELVIS IV CONTRAST ONLY Clinical Statement: Abdominal pain Comparison: CT abdomen and pelvis 05/03/2017 FINDINGS: CT of the abdomen and pelvis was performed following intravenous administration of 100 cc of Isovue-300. Lack of oral contrast limits assessment of the bowel. The included lung bases show no acute findings. There is no free air. Cystocele seen involving the bladder. Uterus and ovaries are not enlarged. There are bilateral tubal occlusive devices present. There is an unchanged anastomosis involving the small bowel of the left lateral abdomen. There is dilatation in this region measuring up to 4.8 cm. Bowel proximally and distally is not dilated. Gallbladder surgically absent. There is a hernia of fat and now containing a short segment of uncompromised transverse colon just to the left of midline in the periumbilical region. Bowel proximally and distally is not distended. Caudal to this there is a small ventral hernia of fat. There is no ascites. The aorta is normal course and caliber. The liver shows steatosis. The liver and spleen are again mildly enlarged. Pancreas and adrenals are not enlarged. No CT abnormality of either kidney is seen. IMPRESSION: Increase in size of an anterior abdominal wall hernia just to left of midline containing fat and now a short segment of transverse colon. The defect in the abdominal wall has increased in size now measuring 4.2 cm. There is no obvious bowel compromise. Unchanged dilatation at a small bowel anastomosis. Hepatosplenomegaly with steatosis. ---- Electronic Signature on File ---- Signed By: Tom Matthew MD [email or web address] Dictated: 06/04/2018 3:58 PM Signed: 06/04/2018 4:03 PM Reported By: TOM MATTHEW M.D. Signed By: TOM MATTHEW M.D. CBC W/DIFF Collected: 06/04/2018 Status: F Source: [facility] 2:12 PM [facility] REPOSITORY Order Comment: [place]: M TYPE CODE TESTS RESULT OUT OF RANGE REFERENCE UNITS LAB L200.39765 4.5-11.0 K/CU MM High WBC 12.4 LAB L200.78366 3.90-5.30 M/CU MM RBC Normal 4.90 LAB L200.16310 11.5-15.5 G/DL HGB Normal 14.8 LAB L200.17037 35.0-47.0 % HCT Normal 44.2 LAB L200.01624 80.0-99.0 fl MCV Normal 90.2 LAB L200.05147 32.0-36.0 GM/DL MCHC Normal 33.5 LAB L200.57412 11-14.5 RDW Normal 12.7 LAB L200.56960 9.4-12.4 Low MPV 9.3 LAB L200.52905 150-450 K/CU MM PLT Normal 292 LAB L200.25387 45-75 % NEUTROPHILS Normal % 68.6 LAB L200.19791 Less than 2 % IMMATURE Normal GRAN % 0.7 LAB L200.20744 20-40 % LYMPH % Normal 22.8 LAB L200.01888 2-10 % MONOCYTE % Normal 5.6 LAB L200.61088 0-5 % EOSINOPHIL Normal % 1.8 LAB L200.01176 0-2 % BASOPHIL % Normal 0.5 LAB L200.53207 2.0-8.3 K/CU MM High NEUTROPHIL ABS 8.50 LAB L200.10032 Less than 2 K/CU MM IMMATR GRAN Normal ABS 0.10 LAB L200.22272 0.9-4.4 K/CU MM LYMPH ABS Normal 2.80 LAB L200.97619 0.1-1.1 K/CU MM MONO ABS Normal 0.70 LAB L200.63378 0-0.5 K/CU MM EOS ABS Normal 0.20 LAB L200.34553 0-0.2 K/CU MM BASO ABS Normal 0.10 LAB L200.16753 Less than 1 % NRBC Normal 0.0 Performed By: #### L200.58141 #### [facility] [address] [id number] BMP Collected: 06/04/2018 Status: F Source: [facility] 2:12 PM [facility] REPOSITORY Order Comment: [place]: TYPE CODE TESTS RESULT OUT OF RANGE REFERENCE UNITS LAB L500.50097 136-145 MMOL/L Normal NA 138 LAB L500.64038 3.5-5.1 MMOL/L Normal K 5.0 Result Comment: Moderate Hemolysis, Result may be falsely increased. LAB L500.66772 98-107 MMOL/L Normal CL 106 LAB L500.95699 21-32 MMOL/L Normal CO2 23 LAB L500.99493 5-16 MMOL/L Normal AGAP 10 LAB L500.56700 70-100 MG/DL High GLU 105 Result Comment: 70-100- Normal Fasting; 100-125 Impaired Fasting; greater than 126 on more than one result- Diabetes. ADA guidelines. Results may be falsely elevated after the administration of Sulfapyridine. Results may be falsely depressed after the administration of Sulfasalazine. LAB L500.60731 7-26 MG/DL Normal BUN 9 LAB L500.92286 0.510-0.950 MG/DL Low CREAT 0.485 Result Comment: Patients receiving either N-Acetylcysteine (NAC) or Metamizole prior to venipuncture, may have falsely depressed results. LAB L500.53848 15-24 Normal BUN/CREA 19 LAB L500.26187 8.5-10.1 MG/DL Normal CALCIUM TOTAL 9.9 Performed By: #### L500.57904, L500.48663, L500.24644, L500.14913, L500.10969 #### [facility] [address] [id number] GFR EST Collected: 06/04/2018 Status: F Source: [facility] 2:12 PM [facility] REPOSITORY Order Comment: [place]: M TYPE CODE TESTS RESULT OUT OF RANGE REFERENCE UNITS LAB L500.31917 ML/MIN Normal IF non-AFR Greater than AMER 60 LAB L500.20912 ML/MIN Normal IF Greater than AMER 60 Performed By: #### L500.07017, L500.52843, L500.82794, L500.48206, L500.12929 #### [facility] [address] [place] [address] LIVER Collected: 06/04/2018 Status: F Source: [facility] 2:12 PM [facility] REPOSITORY Order Comment: [place]: M TYPE CODE TESTS RESULT OUT OF RANGE REFERENCE UNITS LAB L500.74816 6.0-8.5 GM/DL TP Normal 7.2 LAB L500.86622 3.2-5.0 GM/DL Normal ALBUMIN 4.1 LAB L500.23045 2.2-4.2 GM/DL Normal GLOBULIN 3.1 LAB L500.98894 0.8-2.0 Normal A/G RATIO 1.3 LAB L500.64947 0.2-1.0 MG/DL Normal BILI TOTAL 0.3 LAB L500.04032 0.00-0.20 MG/DL Normal BILI DIRECT LESS THAN 0.05 LAB L500.54156 8-34 U/L Normal SGOT (AST) 24 Result Comment: Moderate Hemolysis, Result may be falsely increased. RESULTS MAY BE FALSELY DEPRESSED AFTER THE ADMINISTRATION OF SULFASALAZINE AND/OR SULFAPYRIDINE. LAB L500.59576 13-61 IU/L Normal SGPT (ALT) 24 Result Comment: RESULTS MAY BE FALSELY DEPRESSED AFTER THE ADMINISTRATION OF SULFASALAZINE AND/OR SULFAPYRIDINE. LAB L500.72545 45-117 U/L Normal ALK PHOS 56 Performed By: #### L500.30363, L500.81431, L500.32294, L500.49378, L500.24992 #### [facility] [place] [address] LIPASE Collected: 06/04/2018 Status: F Source: [facility] 2:12 PM [facility] REPOSITORY Order Comment: [place]: M TYPE CODE TESTS RESULT OUT OF RANGE REFERENCE UNITS LAB L500.81463 73-393 U/L Normal LIPASE 139 Performed By: #### L500.58405, L500.97686, L500.55878, L500.62507, L500.30042 #### [facility] [address] [id number] HCG Collected: 06/04/2018 Status: F Source: [facility] 2:12 PM [facility] REPOSITORY Order Comment: [place]: M TYPE CODE TESTS RESULT OUT OF RANGE REFERENCE UNITS LAB L500.29439 NEGATIVE Normal HCG SER NEGATIVE RESULT Performed By: #### L500.73536, L500.78196, L500.06559, L500.36739, L500.78560 #### [facility] [address] [place] [address] # [phone] EMERGENCY REPORT Observed: 04/06/2018 Status: F Source: [facility] 6:45 AM [facility] REPORT NAME ACCOUNT SEX AGE ADMIT DISCHARGE PT MED. RECORD# NUMBER DATE DATE TYPE VISHNU [id number] F 32 03/30/18 03/30/18 3 REBEKA [place] [address] ROOM: ER DATE OF : 1985 DICTATING PHYSICIAN: Vinod Charlton HISTORY OF PRESENT ILLNESS: The patient came in complaining of pain on her right forehead and zygomatic cheek area. She said it started yesterday. It feels like a burning, sharp pain. It is 8/10. She is rubbing it, and it looks like she has excoriated her skin, especially on the forehead. She has a sibling who had shingles recently. She said she had a fever yesterday. She also has a history of migraine headaches and a headache but not now. She did have nausea and vomiting. She denies any cough. No chest pain. PAST MEDICAL HISTORY: She has a history of mental health issues with bipolar disorder, anxiety disorder, gestational diabetes, and ventral hernia. PAST SURGICAL HISTORY: She has had a hernia with mesh placed 2 years ago, cholecystectomy, appendectomy, C-sections, tubal ligation, Brown fundoplasty for bile diversion procedure, and ventral hernia repair. ALLERGIES: Zofran and Toradol. REVIEW OF SYSTEMS: Ten systems were reviewed and were negative except as mentioned above. PHYSICAL EXAMINATION: She is an awake, alert and oriented female in no acute distress. She is afebrile. Blood pressure is 128/103, pulse 107, respirations 14, and pulse oximetry 95% on room air. Head is normocephalic, atraumatic. Eyes: Pupils are equal, round and reactive to light. Extraocular muscles are intact. Nares are patent. Throat has adequate oral moisture. Uvula is midline. Neck is supple without petechiae or rash. Heart rate is regular without murmur. S1 is equal to S2. No S3 or S4 appreciated. Lungs are clear to auscultation bilaterally. No rales, rhonchi or retractions. Abdomen is soft, nontender and nondistended. Skin is warm and dry except for the right forehead area, which is erythematous. It is excoriated also on the zygomatic area. On the right side, it is red. There are no vesicles at this time, but I wonder if this is not pain prior to the exanthem. EMERGENCY DEPARTMENT COURSE AND TREATMENT: I suspect she may have shingles. I will write her for acyclovir as well as 7 Percocet for severe pain. She will be discharged in stable condition. She was also given Dr. Harrison to follow up with. Page 1 of 2 REBEKA MARES Emergency Room Report DIAGNOSIS: Painful dermatitis to the face, suspect shingles. Dictated By: Vinod Cahrlton DO 03/30/18 12:19 JOB #: [id number] Transcribed By: mlei 03/30/18 12:41 Electronically signed by: BOBBY Charlton D.O. 04/06/18 06:44 Page 2 of 2 REBEKA MARES Emergency Room Report DOWNTIME REPORT Observed: 03/29/2018 Status: F Source: [place] 1:15 PM [facility] REPOSITORY [facility] Medical Records Department [address] [place] [address] Downtime Report MR#: [id number] Acct: [id number] Name: REBEKA MARES Miki Rep #: [id number] : 1985 32 From: Alex Barker MD PCP: Care Physician, No Primary Status: [facility] ER This patient was seen during an EMR downtime March 13, 2018 - March 20, 2018. This patient may have a combination of paper and electronic documentation or all paper documentation. All documentation is viewable within the e-chart portion of [employer] for each patient visit. EMERGENCY DEPARTMENT Observed: 03/20/2018 Status: F Source: [place] SUMMARY 6:17 PM [facility] Medical Records Department [address] [place] [address] Emergency Department Summary 03/20/18 1019 MR#: [id number] Acct: [id number] Name: REBEKA MARES Rep #: [id number] : 1985 32 From: Emperatriz Tim MD PCP: Care Physician, No Primary Status: DEP ER - ER Visit Summary Date of Service: 03/20/18 Chief Complaint: Abdominal pain History of Present Illness: The patient is a 32 F with history of ventral hernia status post repair and revision surgeries presents for severe abdominal pain. Patient states she was moving homes last week and since then has had dull abdominal pain in the region of her repair. Overnight the pain became very sharp. Patient is not having any bowel movements or passing flatus. She has associated nausea and decreased appetite. Denies fever, urinary symptoms or other complaints. Physical Examination: Vital signs: afebrile, mildly hypertensive and significant tachycardia, no hypoxia on room air General: well nourished, well developed, sitting in bed and appears uncomfortable, tearful Skin: warm, dry, no rash, no pallor HEENT: normocephalic and atraumatic; PERRL, EOMI, moist mucous membranes Cardiovascular: Tachycardic rate and regular rhythm without murmurs, no peripheral edema, 2+ pulses all distal extremities Respiratory: No increased work of breathing, lungs are clear to auscultation bilaterally, no rales, rhonchi or wheezing Abdominal: Abdomen is soft, diffusely tender to light palpation with quiet bowel sounds, no guarding or rebound, no masses, exam limited secondary to body habitus MSK: Moves all extremities, no deformities, normal strength Neuro: Awake and alert, oriented 4. No facial droop, sensation and motor function intact and symmetric Test Results: Abnormal Lab Results WBC 6.4 RBC 4.64 Hgb 13.8 Hct 41.7 MCV 89.9 MCH 29.7 MCHC 33.1 RDW 12.8 RDW Differential 41.5 WBC RBC Hgb Hct MCV MCH MCHC RDW RDW Differential Plt Count Clinical Impression(s) from Imaging Studies Abdomen/Pelvis CT 03/20/18 10:19 IMPRESSION: 1. Interval clearing of fluid collection in the subcutaneous tissues of the anterior abdominal wall with some residual stranding. There is a healed midline surgical scar and a small, fat-containing supraumbilical hernia to left of midline. 2. Suture lines are seen around the second portion of the duodenum as well as along unremarkable small bowel loops in the anterior midabdomen and left lower quadrant. No sign of bowel obstruction. The appendix is not visualized. 3. The gallbladder is not visualized, and presumed to be surgically absent. 4. Prior bilateral tubal ligation again noted. 5. Hepatosplenomegaly. 6. Stable bilateral renal cortical cysts. No hydronephrosis. Electronically Signed: Gerardo White MD at 12:36 EDT , Service support , Emergency Department Course and Treatment: Patient received Phenergan and morphine for her abdominal complaints. She was given IV fluids. Labs were performed and were remarkable only for an elevated lactate 3.9. Patient was afebrile, and did not have any leukocytosis. CT of the abdomen and pelvis was performed to evaluate for bowel obstruction or recurrent hernia, and it showed no acute process to explain patient's severe symptoms. She received additional Reglan and Dilaudid, with minimal control in her pain. Patient was then given IV Haldol. After hydration, lactate was repeated and was 2.5. While workup was in progress prior to the repeat lactate results returning, patient stated that she needed to leave and was advised she would have to sign out AMA. She left prior to me being able to discuss the risks of leaving and prior to signing the form. Treatment Plan: [] Disposition: [] Impression: Abdominal pain, history of ventral hernia, left AMA This note was generated with [employer] dictation software. It may contain incorrect words, spelling, and punctuation that were not noted in review of the chart prior to signing ED Disposition - Plan for ED Patient: Disposition: Home or Assisted Living Chief Complaint: Abd Pain Referrals: Care Physician,No Primary [Primary Care Provider] - What to do if you have Problems For any increased pain, shortness of breath, bleeding, nausea or vomiting, chest pain, or any unexpected problems, contact your Primary Care Provider. Call [facility] ([phone]) or report to the closest Emergency Room. Call 911 if necessary. 03/20/18 2735 <Electronically signed by Emperatriz Tim MD> Date Emperatriz Fernandes Signature (If Indicated): Date CC: No Primary Care Physician LACTIC ACID Collected: 03/20/2018 Status: F Source: [place] 1:40 PM [facility] REPOSITORY Order Comment: Yes/No query for Sepsis Lactate Rule Y TYPE CODE TESTS RESULT OUT OF REFERENCE UNITS RANGE LAB L503.6005 0.4-2.0 mmol/L High LACTIC ACID 2.5 Result Comment: Critical Result(s) Called at: 14:25:55 03/20/2018 by: Karen Holman Performed By: #### L503.6005 #### [facility] [address] [place], [address] CBC W/DIFF, AUTOMATED Collected: 03/20/2018 Status: F Source: [place] 10:35 AM [facility] REPOSITORY TYPE CODE TESTS RESULT OUT OF RANGE REFERENCE UNITS LAB L100.1000 4.4-11.0 K/mm3 Normal WBC 6.4 LAB L100.1200 4.2-5.4 M/mm3 Normal RBC 4.64 LAB L100.1300 12.0-15.0 g/dl Normal HGB 13.8 LAB L100.1400 37-47 % Normal HCT 41.7 LAB L100.1500 81-99 fL Normal MCV 89.9 LAB L100.1600 27.0-32.0 pg Normal MCH 29.7 LAB L100.1700 32-36 g/gl Normal MCHC 33.1 LAB L100.1810 11.6-14.6 % Normal RDW CV 12.8 LAB L100.1820 35.1-43.9 fl Normal RDW SD 41.5 LAB L100.1900 150-450 K/mm3 Normal PLT 230 LAB L100.2000 6.2-12.0 fl Normal MPV 8.7 LAB L100.2100 47-70 % Normal NEUT% 66.2 LAB L100.2200 19-41 % Normal LY% 25.9 LAB L100.2300 0-10 % Normal MONO% 5.5 LAB L100.2400 0-5 % Normal EO% 1.9 LAB L100.2500 0-1 % Normal BASO% 0.2 LAB L100.2550 0.0-0.9 % Normal IM GRAN % 0.300 Result Comment: IG% - Immature Granulocytes (promyelocytes, myelocytes and metamyelocytes) > 1% indicates that a LEFT SHIFT is Present. LAB L100.2620 2.0-7.7 X10 3/uL Normal Absolute Neut 4.3 LAB L100.2720 0.83-4.51 X10 3/ul Normal Absolute Lymph 1.66 Performed By: #### L100.0100 #### [facility] [address] [place], [address] COMPREHENSIVE METABOLIC Collected: 03/20/2018 Status: F Source: [facility] 10:35 AM [facility] REPOSITORY TYPE CODE TESTS RESULT OUT OF RANGE REFERENCE UNITS LAB L501.0100 74-106 mg/dL High GLU 107 Result Comment: Fasting Glucose result from 100 to 125 mg/dL suggests IMPAIRED HOMEOSTASIS per A.D.A. criteria. Please note revised GLUCOSE reference range effective 2017. LAB L501.1000 7-18 mg/dL Normal BUN 8 LAB L501.1100 0.55-1.02 mg/dL Normal CREAT,SERUM 0.58 Result Comment: The validity of the calculated GFR AND GFRAA in patients over 70 years has not been determined. Clinical correlation is essential. LAB L501.1110 >60 mL/min Normal EST GFR 128 Result Comment: Non- GFR Calc LAB L501.1115 >60 mL/min Normal EST GFR - AA 155 Result Comment: GFR Calc LAB L501.1300 10-20 RATIO Normal BUN/CRE 13.9 LAB L501.1500 6.4-8.2 g/dL T Normal PROT 7.0 LAB L501.1800 3.2-5.0 g/dL Normal ALB 3.5 LAB L501.1950 2.2-4.2 g/dL Normal GLOB 3.5 LAB L501.2000 0.9-2.4 RATIO Normal A/G 1.0 LAB L501.2200 8.5-10.1 mg/dL CA Normal 8.6 LAB L501.4100 15-37 U/L Normal AST 18 LAB L501.4305 45-117 U/L Normal ALK P 54 LAB L501.4405 13-56 U/L Normal ALT 26 LAB L501.4600 0.20-1.00 mg/dL T Normal BILI 0.20 LAB L501.5300 136-145 mmol/L NA Normal 140 LAB L501.5600 3.5-5.1 mmol/L Low K 3.2 LAB L501.5900 98-107 mmol/L CL Normal 104 LAB L501.6100 21.0-32.0 mmol/L Normal CO2 24.0 LAB L501.6200 5-15 Normal GAP 12 Performed By: #### L500.4050, L501.2450 #### [facility] [address] [facility] [place], [address] LIPASE Collected: 03/20/2018 Status: F Source: [place] 10:35 AM [facility] REPOSITORY TYPE CODE TESTS RESULT OUT OF RANGE REFERENCE UNITS LAB L501.2450 73-393 U/L Normal LIPASE 81 Performed By: #### L500.4050, L501.2450 #### [facility] [address] [facility] [place], [address] LACTIC ACID Collected: 03/20/2018 Status: F Source: [place] 10:35 AM [facility] REPOSITORY Order Comment: Yes/No query for Sepsis Lactate Rule Y TYPE CODE TESTS RESULT OUT OF REFERENCE UNITS RANGE LAB L503.6005 0.4-2.0 mmol/L High LACTIC ACID 3.9 Result Comment: Critical Result(s) Called at: 11:26:13 03/20/2018 by: Karen Mchugh Performed By: #### L503.6005 #### [facility] [address] [place], [place], [address] ,SERUM,HCG QUALI. Collected: Status: F Source: [place] 03/20/2018 10:35 AM [facility] REPOSITORY TYPE CODE TESTS RESULT OUT OF REFERENCE UNITS RANGE LAB L700.6700 =>Qualitative mIU/mL Normal HCG Qual < 1 triggr LAB L700.7000 0-9 Nonpreg Negative Normal HCGSQUAL NEGATIVE Performed By: #### L700.6800 #### [facility] [address] [place], [address] ABDOMEN/PELVIS W IV CONT Observed: 03/20/2018 Status: F Source: [place] ONLY 10:20 AM [facility] REPOSITORY [facility] Imaging Services [address] [place] [address] Abdomen/Pelvis W IV Cont ONLY MR#: [id number] Acct: [id number] Name: REBEKA MARES Rep #: [id number] : 1985 F 32 From: Hemanth White MD PCP: Care Physician, No Primary Status: REG ER Study: Abdomen/Pelvis W IV Cont ONLY Date of Exam: 03/20/18 Exam# [id number] Ordering Dr: Emperatriz Tim MD STUDY: CT ABDOMEN AND PELVIS WITH CONTRAST REASON FOR EXAM: Female, 32 years old. Abdominal pain. RADIATION DOSAGE (If Supplied By Facility): CTDIvol = ( 26.70 ) mGy, DLP = ( 1954.89 ) mGycm TECHNIQUE: Transaxial images were obtained from the dome of the diaphragm to the symphysis pubis without oral contrast. 100mL ml of Isovue 300 contrast was administered. Sagittal and coronal images were reconstructed. Individualized dose optimization techniques were used for this CT. COMPARISON: CT abdomen October 30, 2017; CT abdomen pelvis October 19, 2017. FINDINGS: Stable elevation of the right diaphragm. The visualized lung bases are unremarkable. The visualized portions of the heart are within normal limits. There is hepatomegaly, the right lobe measuring 25 cm in height. Liver density is difficult to accurately evaluate after IV contrast injection. The patent portal vein diameter is 17.5 mm.. There is non- visualization of the gallbladder, which may be secondary to either contraction or a prior cholecystectomy. The diameter of the common bile duct 7.5 mm. There is mild splenomegaly, measuring 15.2 x 15.3 x 7.95 cm. Normal pancreas. Normal bilateral adrenal glands. 13 mm rounded low-density at the lateral midpole right kidney consistent with a cortical cyst. A mildly exophytic 11 mm cortical cyst is seen at the lateral lower pole of the left kidney. No hydronephrosis. Normal visualized stomach. There is a suture line around the second portion of the duodenum, an additional suture lines are seen along small bowel loops in the anterior midabdomen and left lower quadrant. No suspicious small bowel dilatation. Normal colon. There is non-visualization of the appendix. Normal abdominal aorta. Normal inferior vena cava. There is a stable 10 x 6 x 1.75 cm left infrarenal retroperitoneal lymph node. No other demonstrated adenopathy, suggesting this is reactive. Normal urinary bladder. Normal size anteverted uterus, tilted to the left of midline. Metal clips adjacent to the bilateral corneal consistent with prior tubal ligation. The bilateral ovaries are unremarkable. There is a healed midline surgical scar of the anterior abdominal wall. There is a small fat-containing supraumbilical hernia to the left side of the midline containing fat. The ill-defined fluid collection seen previously in the subcutaneous tissues in the midline anterior abdominal wall has resolved with some residual stranding. There are stable mild multilevel degenerative changes of the visualized spine. CT/Abdomen/Pelvis W IV Cont ONLY IMPRESSION: 1. Interval clearing of fluid collection in the subcutaneous tissues of the anterior abdominal wall with some residual stranding. There is a healed midline surgical scar and a small, fat-containing supraumbilical hernia to left of midline. 2. Suture lines are seen around the second portion of the duodenum as well as along unremarkable small bowel loops in the anterior midabdomen and left lower quadrant. No sign of bowel obstruction. The appendix is not visualized. 3. The gallbladder is not visualized, and presumed to be surgically absent. 4. Prior bilateral tubal ligation again noted. 5. Hepatosplenomegaly. 6. Stable bilateral renal cortical cysts. No hydronephrosis. 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: Signed ALLERGIES ALLERGIES DATE TYPE / CODE NAME / CODE REACTION SEVERITY SOURCE 10/09/2018 Drug ketorolac Shortness of Unknown [place] Allergy/416 tromethamine/F0000 breath Community 647137([facility] 76682(RXNORM) [facility] ED CT) Repository 10/09/2018 Drug ondansetron Shortness of Unknown [place] Allergy/416 HCl/[id number](RXN breath Community 296176(OM ORM) [facility] ED CT) Repository Drug TORADOL/18743575(R HIVES Moderate [place] Allergy/416 XNORM) ([facility] 187581(SN Modifier) [facility] ED CT) (Qualifier Repository Value) Drug ZOFRAN/29068867(RX HIVES Moderate [place] Allergy/416 NORM) ([facility] 740218(SNOM Modifier) [facility] ED CT) (Qualifier Repository Value) ENCOUNTERS ENCOUNTERS ADMIT/DISCHARGE ACCOUNT NUMBER ADMITTING ENCOUNTER LOCATION SOURCE CLASS 10/09/2018/10/11/19 [id number] [place], Ambulatory [place] ding:PCURoom Repository : [id number]: 1 10/09/2018 [id number] [place], Ambulatory BMSBuilding: [place] BMS.[facility] Repository 10/09/2018 [id number] [place], Ambulatory BMSBuilding: [place] BMS.CF.[facility] Repository 10/09/2018 [id number] [place], Ambulatory BMSBuilding: [place] BMS.[facility] Repository 09/29/2018/09/30/20 [id number] Emergency [address] ding:ED Repository 09/26/2018/09/27/20 [id number] Aniket, Ambulatory [place] ding:[id number] Repository : [id number]: 1 09/26/2018 [id number] [place]ik[place], Ambulatory BMSBuilding: [place] BMS.CF.[facility] Repository 09/26/2018 [id number] Ambulatory BMSBuilding: [place] BMS.CF.[facility] Repository 07/27/2018/07/27/20 [id number] Ambulatory BMSBuilding: [place] 18 BMS.[facility] Repository 07/17/2018/07/17/20 [id number] Emergency [address] ding:ED Repository 07/12/2018 [id number] Ambulatory BMSBuilding: [facility] Repository 07/11/2018/07/12/20 [id number] [place], Ambulatory [place] [address] ding:[id number] Repository : [id number]: 1 07/11/2018 [id number] [place], Ambulatory BMSBuilding: [place] BMS..[facility] Repository 07/11/2018 [id number] [facility] BMS[facility]: [place] BMS..[facility] Repository 07/06/2018/07/09/20 [id number] [facility]DR[place] Inpatient ABuilding:PETRONA Elliott MD Encounter 6ERoom: [place] [address]Bed: [facility] Repository 07/06/2018/07/06/20 [id number] Emergency [address] ding:ED Repository 06/22/2018/06/22/20 [id number] Emergency [address] ding:ED Repository 06/15/2018/06/15/20 [id number] Ambulatory ABuilding:JAMAL Mancini [facility] Repository 06/08/2018/06/09/20 [id number] [place] Inpatient ABuilding:PETRONA Elliott MD Encounter 6ERoom: [place] [address]Bed: A [facility] Repository 06/06/2018 [id number] Emergency [facility] Repository ng:H.ED 06/04/2018 [id number] Emergency [facility] Repository ng:H.ED 03/30/2018/03/30/20 [id number] SHAD, Emergency Buildin [address] VINOD Dial Room: ERBed: [facility] Repository 03/28/2018/03/28/20 [id number] NO, DOCTOR Ambulatory Jensen Sweeney [facility] ON [facility] Repository 03/20/2018/03/20/20 [id number] [place] [facility] ding:ED Repository PAYERS PAYERS ENCOUNTER GUARANTOR PAYER SUBSCRIBER SOURCE 10/09/2018 REBEKA J Primary REBEKA [place] [id number] [place] Insurance:MOLINAPolic DALLASDOB: [facility] svetlana CORDOBA y Number: [id number] Hospital 31825Wpn: 330 [id number] Repository [phone] () Date:6813-73-37AF [address] [address]HC: 10/09/2018 Secondary NOT GIVENUNK [place] Insurance:SELF PAY [facility] Number: Effective Repository Date:2018-10-09 10/09/2018 REBEKA J Primary REBEKA J [place] [id number] [place]SE[place] Insurance:MOLINAPolic DALLASDOB: [facility] svetlana CORDOBA y Number: [id number] Hospital 35638Zqx: 330 [id number] Repository [phone] () Date:4349-98-36XY [facility] [id number] [place] [address]XI: 10/09/2018 Secondary NOT GIVENUNK [place] Insurance:SELF PAY [facility] Number: Effective Repository Date:2018-10-09 10/09/2018 REBEKA J Primary NOT GIVENUNK [place] [id number] [place] Insurance:SELF PAY [facility] [address]871Php: (330) Number: Effective Repository [phone] () Date:2018-10-09 10/09/2018 REBEKA J Primary REBEKA [place] [id number] [place] Insurance:MOLINAPolic WINTERTHURDOB: [facility] svetlana CORDOBA y Number: [id number] Hospital [address]27[address]Pyh: 330 [id number] Repository [phone] () Date:8468-65-08TP[address] [address]DC: 10/09/2018 Secondary [place] GIVENUNK [place] Insurance:SELF PAY [facility] Number: Effective Repository Date:2018-10-09 09/29/2018 REBEKA J Primary REBEKA [place] [id number] [place] Insurance:MOLINAPolic [place]DOB: [place] Number: [id number] Hospital 23[address]Dwz: 330 [id number] Repository [phone] () Date:4813-00-79MU[address] [address]BM: 09/29/2018 Secondary NOT GIVENUNK [place] Insurance:SELF PAY [facility] Number: Effective Repository Date:2018-09-29 09/26/2018 REBEKA J Primary REBEKA [place] [id number] [place] Insurance:MOLINAPolic [place]DOB: [place] Number: [id number] Hospital 30778Dco: [phone]) [id number] Repository [phone] () Date:9675-37-75VH [address] [address]MD: 09/26/2018 Secondary NOT GIVENUNK [place] Insurance:SELF PAY [facility] Number: Effective Repository Date:2018-09-26 09/26/2018 REBEKA J Primary REBEKA [place] [id number] [place] Insurance:MOLINAPolic [place]ASDOB: [place] Number: [id number] Hospital 25671Bst: 330 [id number] Repository [phone] () Date:4107-51-34BD[address] [address]GH: 09/26/2018 Secondary NOT GIVENUNK [place] Insurance:SELF PAY [facility] Number: Effective Repository Date:2018-09-26 09/26/2018 REBEKA J Primary REBEKA [place] [id number] [place] Insurance:MOLINAPolic [place]ASDOB: [place] Number: [id number] Hospital 312[address]Ujv: ([phone]) [id number] Repository [phone] () Date:1268-00-45NA[address] [address]BW: 09/26/2018 Secondary NOT GIVENUNK [place] Insurance:SELF PAY [facility] Number: Effective Repository Date:2018-09-26 07/27/2018 REBEKA [place] Primary REEBKA [place] [id number] [place] Insurance:SAMANIEGO VISHNUDOB: [facility] Number: [id number] Hospital 70408Etk: ([phone]) [id number] Repository [phone] () Date:3251-58-52IU [address] [address]VF: 07/27/2018 Secondary NOT GIVENUNK [place] Insurance:SELF PAY [facility] Number: Effective Repository Date:2018-07-27 07/17/2018 REBEKA [place] Primary REBEKA Hogan [id number] [place] Insurance:[facility]ANIEGOVALLEYCARE MED[facility] CENTERD[facility] Number: [id number] Hospital [address]Edd: [phone]) [id number] Repository [phone] () Date:1741-94-45VN[address] [address]JI: 07/17/2018 Secondary NOT GIVENUNK [place] Insurance:SELF PAY [facility] Number: Effective Repository Date:2018-07-17 07/12/2018 REBEKA [place] Primary REBEKA Hogan [id number] [place] Insurance:SAMANIEGO WINTERTHURDOB: [facility] Hospital[facility] Number: [id number] Hospital 426[address]Opu: 330 [id number] Repository [phone] () Date:2563-37-29DI[address] [address]WQ: 07/12/2018 Secondary NOT GIVENUNK [place] Insurance:SELF PAY [facility] Number: Effective Repository Date:2018-07-12 07/11/2018 REBEKA [place] Primary REBEKA Hogan [id number] JOSE[place] Insurance:SAMANIEGOVALLEYCARE MEDICAL CENTERDOB: [facility] Number: [id number] Hospital 32[address]Vkc: (573) [id number] Repository [phone] () Date:4453-65-60SD[address] [address]HK: 07/11/2018 Secondary NOT GIVENUNK [place] Insurance:SELF PAY [facility] Number: Effective Repository Date:2018-07-11 07/11/2018 REBEKA [place] Primary [place] [id number] [place] Insurance:[facility]: [facility] Number: [id number] Hospital 557[address]Ded: (681) [id number] Repository [phone] () Date:8613-72-01JS[address] [address]DD: 07/11/2018 Secondary NOT GIVENUNK [place] Insurance:SELF PAY [facility] Number: Effective Repository Date:2018-07-11 07/11/2018 REBEKA [place] Primary REBEKA [place] [address] Insurance:[facility]: [facility] Number: [id number] Hospital [address]Aix: (503) [id number] Repository [phone] () Date:3632-66-20OB[address] [address]WG: 07/11/2018 Secondary NOT GIVENUNK [place] Insurance:SELF PAY [facility] Number: Effective Repository Date:2018-07-11 2018 REBEKA [place] Primary REBEKA [place] [facility]: Insurance:MEDICAID OF DALLASDOB: [facility] [id number] [facility] Number: [id number] Repository [place], [id number] [address] [place] [address]Ywb: Date:2018 - [place] 4820-59-67Wssl [address]Tiv: ([phone]) () Name:[facility] [id number] 7965AbSVETLANA ()Tel: [phone]: () [phone] REBEKA Hogan [id number] [place] Insurance:MEDICAIDPol [facility] ERB: [facility] [place] Number: [id number] Hospital [address]90[address]Mmp: [phone]) [id number] Repository [phone] (HP) Date:2018 2018 Secondary NOT GIVENUNK [place] Insurance:SELF PAY [facility] Number: Effective Repository Date:2018 06/22/2018 REBEKA J Primary REBEKA [place] [facility]5733 [place] [facility] [place] Number: [id number] Hospital 224[address]Ale: 330 [id number] Repository [phone] (HP) Date:2018-06-22 06/22/2018 Secondary NOT GIVENUNK [place] Insurance:SELF PAY [facility] Number: Effective Repository Date:2018-06-22 06/15/2018 REBEKA J Primary REBEKA Replaced by [facility]: Insurance:MEDICAID OF DALLASDOB: [facility] [id number] [facility] Number: [id number] Repository [place], [id number] [address] [place] [address]Yqd: Date:2018-06-15 - [place] 0685-43-81Icos [address]Tsj: ([phone]) () Name:MILENA Riggs 9808 [address]Ab [place] ()Tel: [phone]: () [phone] 06/08/2018 REBEKA J Primary REBEKA Replaced by [facility]: Insurance:MEDICAID OF DALLASDOB: [facility] [id number] [place]: [id number] Repository [place], [id number] [address] [place] [address]Zva: Date:2018-06-08 - [place] 2513-78-39Jygm [address]Kfp: (330) () Name:[facility] Keely 0351 [address]Ab [place] ()Tel: [phone]: () [phone] 06/06/2018 REBEKA S Primary [facility] Insurance:MEDICAID OF [place] [address] [place] Number: Repository [place] [id number]: (330) Date:[phone] (HP) [address] [address]TQ: 06/04/2018 REBEKA S Primary [place] [id number] Insurance:MEDICAID OF [place] [address] [place] Number: Repository [place]ana [place] [id number] [address]Nfi: (330) Date:[phone] (HP) [address]645[facility] [address]UI: 03/20/2018 REBEKA Miki Primary NOT [place] [id number] [place] Insurance:SELF PAY [facility] [address]Ffg: (330) Number: Effective Repository [phone] (HP) Date:2018-03-20
--- OUTSIDE RECORDS SUMMARY | 2018-12-29 01:26 | XMS RPT_ITS ---
:1985 Author Organization OHIP Support Name Relationship Address Phone UE Unavailable Unavailable Unavailable OVIEDO, CAROLE/MINO Unavailable [address] + [place] [address] UE Unavailable Unavailable Unavailable OVIEDO, CAROLE/MINO Unavailable [address] + [place] [address] UE Unavailable Unavailable Unavailable OVIEDO, CAROLE/MINO Unavailable [address] + [place] [address] UE Unavailable Unavailable Unavailable OVIEDO, CAROLE/MINO Unavailable [address] + [place] [address] UE Unavailable Unavailable Unavailable OVIEDO, CAROLE/MINO Unavailable [address] + [place] [address] UE Unavailable Unavailable Unavailable OVIEDO, CAROLE/MINO Unavailable [address] + [place] [address] UE Unavailable Unavailable Unavailable OVIEDO, CAROLE/MINO Unavailable [address] + [place] [address] UE Unavailable Unavailable Unavailable OVIEDO, CAROLE/MINO Unavailable [address] + [place] [address] UE Unavailable Unavailable Unavailable OVIEDO, CAROLE/MINO Unavailable [address] + [place] [address] UE Unavailable Unavailable Unavailable OVIEDO, CAROLE/MINO Unavailable [address] + [place] [address] UE Unavailable Unavailable Unavailable OVIEDO, CAROLE/MINO Unavailable [address] + [place] [address] UE Unavailable Unavailable Unavailable OVIEDO, CAROLE/MINO Unavailable [address] + [place] [address] UE Unavailable Unavailable Unavailable OVIEDO, CAROLE/MINO Unavailable [address] + [place] [address] UE Unavailable Unavailable Unavailable OVIEDO, CAROLE/MINO Unavailable [address] + [place] [address] OVIEDO, MINO Unavailable [address] + [place] [address] OVIEDO, CAROLE Unavailable Unavailable + OVIEDO, MINO Unavailable Unavailable + UE Unavailable Unavailable Unavailable OVIEDO, CAROLE/MINO Unavailable [address] + [place] [address] UE Unavailable Unavailable Unavailable OVIEDO, CAROLE/MINO Unavailable [address] + [place] [address] MICHELLE HAUSER Unavailable Unavailable + OVIEDO, MINO Unavailable Unavailable + OVIEDO, MINO Unavailable Unavailable + OVIEDO, MINO Unavailable Unavailable + OVIEDO, MINO Unavailable Unavailable + OVIEDO, MINO Unavailable Unavailable + NOT GIVEN Unavailable Unavailable Unavailable OVIEDO, CHERYL Unavailable [address] + [place], [place] [id number] NOT GIVEN Unavailable [address] [place] [address] OVIEDO, CHERYL Unavailable [address] + [place], [place] [phone] UE Unavailable Unavailable Unavailable OVIEDO, CAROLE/MINO Unavailable [address] + [place] [address] Care Team Providers Name Role Phone Primay Care Physicia, No Primary Care Unavailable Heber Marcial Attending Unavailable Heber Marcial Admitting Unavailable Primay Care Physicia, No Primary Care [...] Mendiola Attending Unavailable Robotham, Rosetta Referring Unavailable Heber Marcial Attending Unavailable Primay Care Physicia, No Primary Care Unavailable Heber Marcial Consulting Unavailable Heber Marcial Admitting Unavailable Heber Marcial Attending Unavailable Primay Care Physicia, No Primary Care Unavailable Heber Marcial Consulting Unavailable Primay Care Physicia, No Primary Care Unavailable Michelle Orourke Attending Unavailable Primay Care Physicia, No Primary Care Unavailable Marciag Alan Admitting Unavailable Agyepong, Alan Referring Unavailable Kacy Cabral Attending Unavailable Alan Torres Admitting Unavailable AgyepongAlan Attending Unavailable Agyecarmine Alan Referring Unavailable Primay Care Physicia, No Primary Care Unavailable Agyepong Alan Consulting Unavailable Agyepong, Alan Admitting Unavailable Robotham, Rosetta Attending Unavailable Agyepong, Alan Referring Unavailable Primay Care Physicia, No Primary Care Unavailable SemenKacy sullivan Consulting Unavailable Martinyenahung, Alan Admitting Unavailable SemenKacy sullivan Attending Unavailable Agyepong, Alan Referring Unavailable Primay Care Physicia, No Primary Care Unavailable SemenKay sullivane Consulting Unavailable PHYSICIAN, NONE Primary Care Unavailable PETRONA FLORES MD Admitting Unavailable SANDRA DODD, PETRONA Attending Unavailable PETRONA FLORES MD Consulting Unavailable PALUTSIS DO, JUAN R M Consulting Unavailable PHYSICIAN, NONE Primary Care Unavailable GEMMA CHASE, (RxC2) MAHENDRA Arreaga Attending Unavailable PETRONA FLORES MD Attending Unavailable PHYSICIAN, NONE Primary Care Unavailable PETRONA FLORES MD Admitting Unavailable NO, DOCTOR ON Admitting Unavailable NO, DOCTOR ON Attending Unavailable NO, DOCTOR ON Primary Care Unavailable NO, DOCTOR ON Consulting Unavailable SHAD, DR VINOD Dial Admitting Unavailable SHAD, DR VINOD Dial Attending Unavailable NO, DOCTOR ON Referring Unavailable SHAD, DR VINOD Dial Primary Care Unavailable NO, DOCTOR ON Consulting Unavailable Stk Cnty, [facility] Attending Unavailable PROBLEMS PROBLEMS DATE TYPE CONDITION / CODE ATTENDING STATUS SOURCE Unknown R10.9 - Unspecified Sementi, Active [facility] abdominal pain / [facility] R10.9(ICD-10) Hospital Repository Unknown G89.18 - Other acute Lori Orourkefer Active [place] [facility] postprocedural pain / Community G89.18(ICD-10) Hospital Repository Unknown K43.0 - Incisional Calabretta, Active [facility] 8 hernia with [facility] obstruction, without Hospital gangrene / Repository K43.0(ICD-10) Unknown Z98.890 - Other [facility], Active [place] [address] [facility] postprocedural [facility] Hospital / Z98.890(ICD-10) Repository Unknown Z87.19 - Personal [facility], Active [facility] [address] [facility] diseases of the Hospital digestive system / Repository Z87.19(ICD-10) Unknown R10.31 - Right lower Robotham, Active [place] 8 quadrant pain / [facility] R10.31(ICD-10) Hospital Repository Unknown R94.31 - Abnormal Moodispaw, Piero Active [facility] 8 electrocardiogram Community [ECG] [EKG] / Hospital R94.31(ICD-10) Repository Unknown R55 - Syncope and Tim Ren Active [facility] 8 collapse / R55(ICD-10) [facility] Hospital Repository Admitting Unknown / UNK(Unknown) Stk Cnty, Active [facility] 8 diagnosis [facility] Repository PROCEDURES PROCEDURES No Procedure Records FoundRESULTS RESULTS ENDOMYSIAL ANTIBODY Collected: 10/11/2018 Status: F Source: [place] IGA 1:00 PM [facility] REPOSITORY TYPE CODE TESTS RESULT OUT OF REFERENCE UNITS RANGE LAB L3410.2710 Negative Normal ENDOMYSIAL IGA Negative Result Comment: Performed at: - [facility] [address] [id number] [employer] Agent: Vernon Lee PhD, Phone: [phone] Performed By: #### L3410.2710 #### [facility] (refer to report for specific site) refer to report for address and phone number DISCHARGE SUMMARY Observed: 10/11/2018 Status: F Source: EDISON 12:32 PM [facility] REPOSITORY [facility] Medical Records Department [address] [address] Discharge Summary 10/10/18 1621 MR#: [id number] Acct: [id number] Name: REBEKA MARES Rep #: [id number] : 1985 33 From: Ludivina Cabral DO PCP: Care Physician, No Primary Status: ADM J LUIS Y Location: [place] [address] ADDENDUM by Kacy Cabral on 10/11/18 at [...] She presented to the emergency department at [facility] on 10/09/18 complaining of worsening abdominal [...] is going to follow up with the [facility] until she gets a PCP. Prior [...] affect, pleasant This note was generated with Hitsbook dictation software. It may contain incorrect words, [...] applicable Code Visit Inpatient E AND M: 65896 Disch Hosp 01/02/19 1227 <Electronically signed by Ludivina Cabral DO> Date M Castro Cabral DO Cosigner Signature (if applicable): Date CC: No Primary Care Physician; Heber Marcial MD; Kacy Cabral Signed DISCHARGE INSTRUCTION Observed: 10/11/2018 Status: F Source: MULL[place]EN 12:02 PM [facility] REPOSITORY [facility] Medical Records Department [address] [place] [address] Instructions for Home/Discharge Instructions 10/11/18 1135 MR#: [id number] Acct: [id number] Name: REBEKA MARES Rep #: [id number] : 1985 33 From: Ludivina Cabral DO [...] can call me Tuesday or Tuesday at [phone] for the results of the test for [...] up with your Primary Care Physician in: [facility] for routine medical care Test Results: Test [...] DISCHARGE INSTRUCTION Observed: 10/10/2018 Status: F Source: [place] 4:21 PM [facility] REPOSITORY [facility] Medical Records Department [address] [place] [address] Instructions for Home/Discharge Instructions 10/10/18 1613 MR#: [id number] Acct: [id number] Name: VISHNUREBEKA Miki Rep #: [id number] : 1985 33 From: Ludivina Cabral DO [...] 10/10/2018 Status: F Source: EDISON 1:00 PM [facility] REPOSITORY TYPE CODE TESTS RESULT OUT OF RANGE REFERENCE UNITS LAB L503.6005 0.4-2.0 mmol/L Normal LACTIC ACID 1.9 Performed By: #### L503.6005 #### [facility] [address] [place], [place], [address] LACTIC ACID Collected: 10/10/2018 Status: F Source: EDISON 8:50 AM [facility] REPOSITORY Order Comment: Yes/No query for Sepsis Lactate Rule Y TYPE CODE TESTS RESULT OUT OF REFERENCE UNITS RANGE LAB L503.6005 0.4-2.0 mmol/L High LACTIC ACID 2.2 Result Comment: Critical Result(s) Called at: 09:31:16 10/10/2018 by: Fareed Aguilrea RN Performed By: #### L503.6005 #### [facility] [address] [place], [address] PROTHROMBIN TIME W/INR Collected: 10/10/2018 Status: F Source: EDISON 6:59 AM [facility] REPOSITORY TYPE CODE TESTS RESULT OUT OF RANGE REFERENCE UNITS LAB L300.4150 11.7-14.9 SECONDS Normal PROTIME 13.9 LAB L300.4200 Normal INR 1.1 Performed By: #### L300.3900 #### [facility] [address] [place], [place], [id number] BASIC METABOLIC Collected: 10/10/2018 Status: F Source: [place] PROFILE (BMP) 6:59 AM [facility] REPOSITORY TYPE CODE TESTS RESULT OUT OF [...] Normal 11 Performed By: #### L500.2500 #### [facility] [address] [place], [address] CBC-COMPLETE BLOOD CNT Collected: 10/10/2018 Status: F Source: [place] NO DIFF 5:00 AM [facility] REPOSITORY Order Comment: BLOOD IN LAB TYPE [...] MPV 8.9 Performed By: #### L100.0500 #### [facility] [address] [facility] [place], [address] HISTORY AND PHYSICAL Observed: 10/10/2018 Status: F Source: [place] EXAM 4:21 AM [facility] REPOSITORY [facility] Medical Records Department [address] [place] [address] History and Physical 10/09/186 MR#: [id number] Acct: [id number] Name: REBEKA MARES Rep #: [id number] : 1985 33 From: Alan Torres MD PCP: Care Physician, No Primary Status: ADM J LUIS Y Location: [place] [address] Problem List (1) Intractable abdominal pain Status: [...] the small bowel. Psychiatric History: Anxiety BUSINESS DEVELOPMENT COORDINATOR History: No pertinent BUSINESS DEVELOPMENT COORDINATOR history Lives: With Family Smoking Status: Former [...] CTA of her abdomen. Consider discussing with [facility] who did her surgery. [...] ordered Code Visit Inpatient E AND M: 29214 Init Hosp L3 10/10/18 0421 <Electronically signed by Alan Torres MD> Date Alan Torres MD Cosigner Signature: Date (if applicable) CC: No Primary Care Physician; Alan Torres MD Signed LACTIC ACID Collected: 10/10/2018 Status: F Source: [place] 2:14 AM [facility] REPOSITORY TYPE CODE TESTS RESULT OUT OF REFERENCE UNITS RANGE LAB L503.6005 0.4-2.0 mmol/L High alert LACTIC ACID 4.6 Result Comment: Critical Result(s) Called at: 03:20:16 10/10/2018 by: Nasir Sykes to [facility] Performed By: #### L503.6005 #### [facility] [address] [place] [address]. [place], [address] Observed: 10/10/2018 Status: F Source: [place] CULTURE, BLOOD (WB) 2:14 AM [facility] REPOSITORY Has pt arrived? Y BC No growth in 5 days. Performed By: #### M200.1000 #### [facility] [facility] [place], [address] Observed: 10/10/2018 Status: F Source: [place] CULTURE, BLOOD (WB) 12:40 AM [facility] REPOSITORY Has pt arrived? Y BC No growth in 5 days. Performed By: #### M200.1000 #### [facility] [address] [facility] [place], [address] CHEST 1 VIEW Observed: 10/10/2018 Status: F Source: EDISON (PORTABLE) 12:23 AM [facility] REPOSITORY [facility] Imaging Services [address] [place] [address] Chest 1 View (Portable) MR#: [id number] Acct: [id number] Name: REBEKA MARES Rep #: [id number] : 1985 F 33 From: Wili Goodman PCP: Care Physician, No Primary Status: ADM J LUIS Study: Chest 1 View (Portable) Date of Exam: 10/10/18 Exam# [id number] Ordering Dr: Zenaida Mtz MD STUDY: X-RAY [...] No Primary Care Physician; Zenaida Mtz MD Spice Room Worker: Signed EMERGENCY DEPARTMENT Observed: 10/10/2018 Status: F Source: [place] SUMMARY 12:11 AM [facility] REPOSITORY [facility] Medical Records Department [address] [place] [address] Emergency Department Summary 10/09/18 1843 MR#: [id number] Acct: [id number] Name: REBEKA MARES Miki Rep #: [id number] : 1985 33 From: Zenaida Mtz MD PCP: Care Physician, No Primary Status: ADM J LUIS ADDENDUM by Zenaida Mtz MD on 10/10/18 at 0011 Lactic acid is 7.3. Patient was given additional IV fluids according to ideal body weight. She feels improved on reevaluation. Abdomen is soft with diffuse tenderness, no rebound or guarding. Discussed with Dr. Geiger art education professor. She reviewed the CT images and agrees [...] Abdominal pain This note was generated with Hitsbook dictation software. It may contain incorrect words, [...] problems, contact your Primary Care Provider. Call [employer] [facility] ([phone]) or report to the closest Emergency Room. Call 911 if necessary. 10/09/18 2314 <Electronically signed by Zenaida Mtz MD> Date Zenaida Mtz MD Cosigner Signature (If Indicated): Date CC: No Primary Care Physician URINALYSIS, COMPLETE Collected: 10/09/2018 Status: F Source: [place] 11:50 PM [facility] REPOSITORY Order Comment: How was Urine Obtained? [...] URINE SEEN Performed By: #### L400.0001 #### [facility] [address] [facility] [address] [place], [place], [address] LACTIC ACID Collected: 10/09/2018 Status: F Source: [place] 10:40 PM [facility] REPOSITORY Order Comment: Yes/No query for Sepsis Lactate Rule Y TYPE CODE TESTS RESULT OUT OF REFERENCE UNITS RANGE LAB L503.6005 0.4-2.0 mmol/L High alert LACTIC ACID 7.3 Result Comment: Critical Result(s) Called at: 23:26:44 10/09/2018 by: Nasir dunne Performed By: #### L503.6005 #### [facility] [address] [facility] [place], [place], [address] BASIC METABOLIC Collected: 10/09/2018 Status: F Source: [place] PROFILE (BMP) 10:08 PM [facility] REPOSITORY TYPE CODE TESTS RESULT OUT OF [...] GAP 17 Performed By: #### L500.2500 #### [facility] [address] [facility] [place], [address] ABDOMEN/PELVIS WITH Observed: 10/09/2018 Status: F Source: [place] CONTRAST 6:40 PM [facility] REPOSITORY [facility] Imaging Services [address] [place] [address] Abdomen/Pelvis WITH Contrast MR#: [id number] Acct: [id number] Name: REBEKA MARES Rep #: [id number] : 1985 F 33 From: Payam Tovar MD PCP: Care Physician, No Primary Status: REG ER Study: Abdomen/Pelvis WITH Contrast Date of Exam: 10/09/18 Exam# [id number] Ordering Dr: Zenaida Mtz MD ADDENDUM by [...] No Primary Care Physician; Zenaida Mtz MD Spice Room Worker: Signed CBC W/DIFF, AUTOMATED Collected: 10/09/2018 Status: F Source: [place] 5:55 PM [facility] REPOSITORY TYPE CODE TESTS RESULT OUT OF [...] Lymph 3.46 Performed By: #### L100.0100 #### [facility] [address] [place], [address] BASIC METABOLIC Collected: 10/09/2018 Status: F Source: [place] PROFILE (BMP) 5:55 PM [facility] REPOSITORY TYPE CODE TESTS RESULT OUT OF [...] Performed By: #### L500.2500, L500.3400, L501.2450 #### [facility] [address] [place], [place], [address] LIVER PROFILE Collected: 10/09/2018 Status: F Source: [place] 5:55 PM [facility] REPOSITORY TYPE CODE TESTS RESULT OUT OF [...] Performed By: #### L500.2500, L500.3400, L501.2450 #### [facility] [facility] [place], [place], [address] LIPASE Collected: 10/09/2018 Status: F Source: [place] 5:55 PM [facility] REPOSITORY TYPE CODE TESTS RESULT OUT OF RANGE REFERENCE UNITS LAB L501.2450 73-393 U/L Normal LIPASE 117 Performed By: #### L500.2500, L500.3400, L501.2450 #### [facility] [address] [facility] [place], [place], [id number] ,SERUM,HCG QUALI. Collected: Status: F Source: [place] 10/09/2018 5:55 PM [facility] REPOSITORY TYPE CODE TESTS RESULT OUT OF REFERENCE UNITS RANGE LAB L700.7000 0-9 Nonpreg Negative Normal HCGSQUAL NEGATIVE LAB L700.6700 =>Qualitative mIU/mL Normal HCG Qual < 1 triggr Performed By: #### L700.6800 #### [facility] [address] [place], [place], [address] EMERGENCY DEPARTMENT Observed: 09/30/2018 Status: F Source: [place] SUMMARY 12:56 AM [facility] REPOSITORY [facility] Medical Records Department [address] [place] [address] Emergency Department Summary 09/29/182048 MR#: [id number] Acct: [id number] Name: REBEKA MARES Rep #: [id number] : 1985 33 From: Michelle Orourke MD [...] nausea, improved This note was generated with [employer] software. It may contain incorrect words, spelling, [...] your Primary Care Provider. Call [facility] ([phone]) or report to the closest Emergency Room. Call 911 if necessary. 09/30/18 0056 <Electronically signed by Michelle Orourke MD> Date Michelle Orourke MD Cosigner Signature (If Indicated): Date CC: No Primary Care Physician DISCHARGE INSTRUCTION Observed: 09/30/2018 Status: F Source: EDIOSN 12:52 AM [facility] REPOSITORY [facility] Medical Records Department [address] [place] [address] Discharge Instruction 09/30/18 0049 MR#: [id number] Acct: [id number] Name: REBEKA MARES Rep #: [id number] : 1985 33 From: Michelle Orourke MD [...] your Primary Care Provider. Call [facility] ([phone]) or report to the closest Emergency Room. Call 911 if necessary. 09/30/18 0052 <Electronically signed by Michelle Orourke MD> Date Michelle Orourke MD Cosigner Signature (If Indicated): Date CC: No Primary Care Physician ABDOMEN/PELVIS W IV CONT Observed: 09/29/2018 Status: F Source: EDISON ONLY 11:36 PM [facility] REPOSITORY [facility] Imaging Services [address] [place] [address] Abdomen/Pelvis W IV Cont ONLY MR#: [id number] Acct: [id number] Name: REBEKA MARES Miki Rep #: [id number] : 1985 F 33 From: Michael Stevenson MD PCP: Care Physician, No Primary Status: REG ER Study: Abdomen/Pelvis W IV Cont ONLY Date of Exam: 09/29/18 Exam# [id number] Ordering Dr: Michelle Orourke MD STUDY: CT [...] No Primary Care Physician; Michelle Orourke MD Spice Room Worker: Signed CBC W/DIFF, AUTOMATED Collected: 09/29/2018 Status: F Source: EDISON 9:20 PM [facility] REPOSITORY TYPE CODE TESTS RESULT OUT OF [...] Lymph 1.99 Performed By: #### L100.0100 #### [facility] [address] [place], [address] BASIC METABOLIC Collected: 09/29/2018 Status: F Source: ED[place] PROFILE (BMP) 9:20 PM [facility] REPOSITORY TYPE CODE TESTS RESULT OUT OF [...] 9 Performed By: #### L500.2500, L500.3400 #### [facility] [address] [place], [address] LIVER PROFILE Collected: 09/29/2018 Status: F Source: [place] 9:20 PM [facility] REPOSITORY TYPE CODE TESTS RESULT OUT OF [...] 0.10 Performed By: #### L500.2500, L500.3400 #### [facility] [address] [place], [address] EMERGENCY DEPARTMENT Observed: 09/28/2018 Status: F Source: [place] SUMMARY 3:04 PM [facility] REPOSITORY [facility] Medical Records Department [address] [place] [address] Emergency Department Summary 09/26/18 1307 MR#: [id number] Acct: [id number] Name: REBEKA MARES Rep #: [id number] : 1985 33 From: Ovidio Castillo MD [...] to radiologist read. He requested transfer to [facility] hernia service. Spoke with the surgeon on duty for the [facility]. He requested to speak with the surgeon. Message was left with charge nurse in the OR to contact [facility] transfer line and ask for Nancy. Treatment Plan: Awaiting callback from Dr. Marcial. Disposition: To the OR Impression: Incarcerated midline ventral hernia, transverse colon This note was generated with Hitsbook dictation software. It may contain incorrect words, spelling, and punctuation that were not noted in review of the chart prior to signing ED Disposition - Plan for ED Patient: Disposition: Acute Care [facility] Chief Complaint: Abd Pain What to do if you have Problems For any increased pain, shortness of breath, bleeding, nausea or vomiting, chest pain, or any unexpected problems, contact your Primary Care Provider. Call [facility] ([phone]) or report to the closest Emergency Room. Call 911 if necessary. 09/28/18 1504 <Electronically signed by Ovidio Castillo MD> Date Ovidio Castillo MD Cosigner Signature (If Indicated): Date CC: No Primary Care Physician DISCHARGE SUMMARY Observed: 09/28/2018 Status: F Source: EDISON 9:10 AM [facility] REPOSITORY [facility] Medical Records Department [address] [place] [address] Discharge Summary 09/27/18 1524 MR#: [id number] Acct: [id number] Name: REBEKA MARES Rep #: [id number] : 1985 33 From: Heber Marcial MD PCP: Care Physician, No Primary Status: DIS J LUIS Y Location: [place] [address]1 Discharge Date and Diagnosis Date of Admission: [...] to schedule 2 week follow up appointment. [phone] Medical Necessity - Tobacco Use Smoking Status: Former smoker Meaningful Use Info Meaningful Use Diagnoses (Choose all that apply): None applicable 09/28/18 0910 <Electronically signed by Heber Marcial MD> Date Heber Marcial MD Cosigner Signature (if applicable): Date CC: No Primary Care Physician; Heber Marcial MD Signed DISCHARGE INSTRUCTION Observed: 09/27/2018 Status: F Source: EDISON 3:24 PM [facility] REPOSITORY [facility] Medical Records Department [address] [place] [address] Instructions for Home/Discharge Instructions 09/27/18 1523 MR#: [id number] Acct: [id number] Name: REBEKA MARES Rep #: [id number] : 1985 33 From: Heber Marcial MD [...] to schedule 2 week follow up appointment. [phone] 09/27/18 1521 <Electronically signed by Heber Marcial MD> Date Heber Marcial MD CC: No Primary Care Physician BASIC METABOLIC Collected: 09/27/2018 Status: F Source: [place] PROFILE (BMP) 7:52 AM [facility] REPOSITORY Order Comment: REDRAW. PREVIOUS SPECIMEN REJECTED DUE TO QNS. 09/27/18 0702 Karen Smith. TYPE CODE TESTS RESULT OUT OF [...] Normal 8 Performed By: #### L500.2500 #### [facility] [address] [place], [address] CBC W/DIFF, AUTOMATED Collected: 09/27/2018 Status: F Source: [place] 7:52 AM [facility] REPOSITORY TYPE CODE TESTS RESULT OUT OF [...] Lymph 1.43 Performed By: #### L100.0100 #### [facility] [address] [facility] [place], [address] OPERATIVE REPORT Observed: 09/26/2018 Status: F Source: [place] 5:14 PM [facility] REPOSITORY [facility] [facility] Department [address] [place] [address] Operative Report 09/26/18 1709 MR#: [id number] Acct: [id number] Name: REBEKA MARES Rep #: [id number] : 1985 33 From: Heber Marcial MD PCP: Care Physician, No Primary Status: [facility] Y Location: [address] Problem List (1) Recurrent ventral hernia [...] needle and an 0 Vicryl suture a tfomgt-gv-rxpmn was placed into the fascia and this [...] AND PHYSICAL Observed: 09/26/2018 Status: F Source: MULLIKEN EXAM 2:58 PM [facility] REPOSITORY [facility] Medical Records Department [address] [place] [address] History and Physical 09/26/18 1451 MR#: [id number] Acct: [id number] Name: REBEKA MARES Rep #: [id number] : 1985 33 From: Heber Marcial MD PCP: Care Physician, No Primary Status: REG SDC Y Location: MS2 [id number] Problem List (1) Recurrent ventral hernia with [...] incarceration using sutures. She then presented to [facility] on May and had her hernia [...] one was done June 09, 2018. BUSINESS DEVELOPMENT COORDINATOR History: No pertinent BUSINESS DEVELOPMENT COORDINATOR history Smoking Status: Former smoker - *Family [...] of the bowel. Heber Marcial MD Pager: [facility] [address] [place] [address], [address] [place] [address] Office: 09/26/18 3834 <Electronically signed by Heber Marcial MD> Date Heber Marcial MD Cosigner Signature: Date (if applicable) CC: No Primary Care Physician; Heber Marcial MD Signed ,URINE Collected: 09/26/2018 Status: F Source: EDISON 2:43 PM [facility] REPOSITORY TYPE CODE TESTS RESULT OUT OF REFERENCE UNITS RANGE LAB L400.8000 Negative Normal HCGUQUAL Negative Result Comment: Very dilute urine specimens, as indicated by a low specific gravity, may not contain front office representative levels of hCG. If is still suspected, a first morning urine specimen should be collected 48 hours later and tested. Performed By: #### L400.7600 #### [facility] [place], [address] CBC W/DIFF, AUTOMATED Collected: 09/26/2018 Status: F Source: [place] 11:10 AM [facility] REPOSITORY TYPE CODE TESTS RESULT OUT OF [...] Lymph 2.12 Performed By: #### L100.0100 #### [facility] [address] [place], [address] BASIC METABOLIC Collected: 09/26/2018 Status: F Source: EDISON PROFILE (BMP) 11:10 AM [facility] REPOSITORY TYPE CODE TESTS RESULT OUT OF [...] Normal 11 Performed By: #### L500.2500 #### [facility] [address] [place], [address] ABDOMEN/PELVIS WITHOUT Observed: 09/26/2018 Status: F Source: EDISON CONT 11:08 AM [facility] REPOSITORY [facility] Imaging Services [address] [place] [address] Abdomen/Pelvis without Cont MR#: [id number] Acct: [id number] Name: REBEKA MARES Rep #: [id number] : 1985 F 33 From: Nick Armendariz DO PCP: Care Physician, No Primary Status: REG ER Study: Abdomen/Pelvis without Cont Date of Exam: 09/26/18 Exam# [id number] Ordering Dr: Ovidio Castillo MD STUDY: CT [...] No Primary Care Physician; Ovidio Castillo MD Spice Room Worker: Signed SURGERY VISIT REPORT Observed: 07/27/2018 Status: F Source: [place]ULL[place]EN 10:35 AM [facility] REPOSITORY [facility] [address] [place] [address]. [address] [place] [address] OFFICE VISIT Date of Service: 07/27/18 MR#: [id number] Acct: [id number] Name: REBEKA MARES Rep #: [id number] : 1985 Provider: Rosetta Miles MD Age/Sex: 33/F Location: [facility] Status: Signed Intake Vital Signs07/27/18 Height 5 ft 5 in 07/27/18 Blood Pressure Location Lt brachial Intake Visit Reasons: Incarcerated Hernia Repair 07/12 Auto Body Straightener Required: No Accompanied by: None Is patient [...] the pain starts. Rosetta Miles M.D. Pager: [phone] [facility] [address] [place] [address], [address] [place] [address] Office: [phone] Orders Referrals: Plan Detail Follow Up prn Coding Level of Care Code Global Post Op Diagnoses History of incisional hernia repair Z98.890; Z87.19 RLQ abdominal pain R10.31 07/27/18 1035 <Electronically signed by Rosetta Miles MD> Date Rosetta Miles MD [facility] Signature: Date (if applicable) CC: Kelly Pradhan MD 12 LEAD ELECTROCARDIOGRAM Observed: 07/20/2018 Status: F Source: EDISON 2:32 PM [facility] Cardiovascular Services [address] [place] [address] 12 Lead EKG 07/12/18 0536 MR#: [id number] Acct: [id number] Name: REBEKA MARES Rep #: [id number] : 1985 33 From: Piero Mendiola MD Attending Dr: Rosetta Miles MD Status: DIS J LUIS Ordering Dr: Rosetta Miles MD Date: 07/12/18 Location: [facility] Sex: F C Admitted: 07/11/18 Test Reason : MORNING EKG Blood Pressure : / mmHG Vent. Rate : 080 BPM Atrial Rate : 080 BPM P-R Int : 154 ms QRS Dur : 096 ms QT Int : 408 ms P-R-T Axes : 047 055 013 degrees QTc Int : 470 ms Normal sinus rhythm Confirmed by VINI DODD, PIERO ([id number]), video editor KEZIA BARKER ([id number]) on 07/20/2018 2:32:14 PM Referred By: JUAN Confirmed By:PIERO MENDIOLA MD 07/20/18 143 Date Piero Mendiola MD CC: No Primary Care Physician; Rosetta Miles MD Signed EMERGENCY DEPARTMENT Observed: 07/17/2018 Status: F Source: EDISON SUMMARY 6:01 PM [facility] REPOSITORY [facility] Medical Records Department [address] [place] [address] Emergency Department Summary 07/17/18 0713 MR#: [id number] Acct: [id number] Name: REBEKA MARES Rep #: [id number] : 1985 33 From: Michelle Orourke MD [...] Dulcolax suppositories and to try mag citrate ebxg-fid-iijzptb. This was discussed with the patient. Treatment Plan: [] Disposition: Discharge Impression: Postop abdominal pain This note was generated with Hitsbook dictation software. It may contain incorrect words, [...] your Primary Care Provider. Call [facility] ([phone]) or report to the closest Emergency Room. Call 911 if necessary. 07/17/18 1801 <Electronically signed by Michelle Orourke MD> Date Michelle Orourke MD Cosigner Signature (If Indicated): Date CC: No Primary Care Physician DISCHARGE INSTRUCTION Observed: 07/17/2018 Status: F Source: EDISON 12:53 PM [facility] REPOSITORY [facility] Medical Records Department [address] [place] [address] Discharge Instruction 07/17/18 1250 MR#: [id number] Acct: [id number] Name: REBEKA MARES Rep #: [id number] : 1985 33 From: Michelle Orourke MD [...] your Primary Care Provider. Call [facility] ([phone]) or report to the closest Emergency Room. Call 911 if necessary. 07/17/18 1253 <Electronically signed by Michelle Orourke MD> Date Michelle Orourke MD Cosigner Signature (If Indicated): Date CC: No Primary Care Physician URINALYSIS, COMPLETE Collected: 07/17/2018 Status: F Source: EDISON 8:50 AM [facility] REPOSITORY Order Comment: Order Date: 07/17/18 How [...] URINE SEEN Performed By: #### L400.0001 #### [facility] [place], [address] CBC W/DIFF, AUTOMATED Collected: 07/17/2018 Status: F Source: MULL[place]EN 7:15 AM [facility] REPOSITORY TYPE CODE TESTS RESULT OUT OF [...] Lymph 2.86 Performed By: #### L100.0100 #### [facility] [address] [place], [address] BASIC METABOLIC Collected: 07/17/2018 Status: F Source: EDISON PROFILE (BMP) 7:15 AM [facility] REPOSITORY TYPE CODE TESTS RESULT OUT OF [...] 12 Performed By: #### L500.2500, L500.3400 #### [facility] [address] [place], [address] LIVER PROFILE Collected: 07/17/2018 Status: F Source: EDISON 7:15 AM [facility] REPOSITORY TYPE CODE TESTS RESULT OUT OF [...] 0.05 Performed By: #### L500.2500, L500.3400 #### [facility] [address] [place], [address] ABDOMEN/PELVIS WITH Observed: 07/17/2018 Status: F Source: MULLIK[place] CONTRAST 7:10 AM [facility] REPOSITORY [facility] Imaging Services [address] [place] [address] Abdomen/Pelvis WITH Contrast MR#: [id number] Acct: [id number] Name: REBEKA MARES Miki Rep #: [id number] : 1985 F 33 From: Eros Peraza MD PCP: Care Physician, No Primary Status: REG ER Study: Abdomen/Pelvis WITH Contrast Date of Exam: 07/17/18 Exam# [id number] Ordering Dr: Michelle Orourke MD STUDY: CT [...] No Primary Care Physician; Michelle Orourke MD Spice Room Worker: Signed DISCHARGE INSTRUCTION Observed: 07/12/2018 Status: F Source: MULL[place]EN 12:50 PM [facility] REPOSITORY [facility] Medical Records Department [address] [place] [address] Instructions for Home/Discharge Instructions 07/12/18 1245 MR#: [id number] Acct: [id number] Name: ERBEKA MARES Rep #: [id number] : 1985 33 From: Rosetta Miles MD [...] Rosetta Miles MD - After 5:00/weekends call [phone] with any concerns When: Call the office [phone] for a follow-up appointment in 2 weeks. Proposed Discharge Date: 07/12/18 07/12/18 1250 <Electronically signed by Rosetta Miles MD> Date Rosetta Miles MD CC: No Primary Care Physician OPERATIVE REPORT Observed: 07/12/2018 Status: F Source: EDISON 12:45 PM [facility] REPOSITORY [facility] Medical Records Department [address] [place] [address] Operative Report 07/12/18 1236 MR#: [id number] Acct: [id number] Name: REBEKA MARES Rep #: [id number] : 1985 33 From: Rosetta Miles MD PCP: Care Physician, No Primary Status: ADM J LUIS Y Location: [place] [address] ADDENDUM by Rosetta Miles MD on 07/12/18 at 1245 Code Visit Mesh LOT number for the ventralex ST hernia patch medium [place] was [id number] 07/12/18 1245 <Electronically signed by Rosetta Miles MD> Date Rosetta Miles MD cc: No Primary Care Physician; Rosetta Miles MD * Signed Report of Operation Date of Procedure: 07/12/18 Pre-Operative Diagnosis: Incarcerated incisional hernia Post-Operative Diagnosis: Same Surgery/Procedure Performed:: Incarcerated incisional hernia repair with mesh pillow agent: Paulina Galeana pillow agent: Markus Avlaos Type of Anesthesia:: General Anesthesiologist: Tim Rodarte [...] cm. A Ventralex ST hernia patch medium [place] (6.4 cm) was placed, which also covered the umbilical hernia area that was reduced through this incisional hernia defect. The ventralex mesh was secured with 0 Nurolon sutures at the tails with horizontal mattress sutures as well as superiorly and inferiorly and then the fascia was brought together with an 0 Nurolon wsydfj-hi-ghlje suture. The wound was irrigated with saline. [...] Miles MD CC: No Primary Care Physician; Rosetta Miles MD Signed HISTORY AND PHYSICAL Observed: 07/12/2018 Status: F Source: MULLIKEN EXAM 10:51 AM [facility] REPOSITORY [facility] Medical Records Department [address] [place] [address] History and Physical 07/11/187 MR#: [id number] Acct: [id number] Name: REBEKA MARES Rep #: [id number] : 1985 33 From: Rosetta Miles MD PCP: Care Physician, No Primary Status: ADM J LUIS Y Location: [facility] GF161-7 History of Present Illness Date of Admission: 07/11/18 The patient is a 33 year old F presented to the ER due to abdominal pain to the right of the umbilicus. Patient states that pain started to worsen again this morning at 3 AM. She rates it at 9/10 currently. Patient also came to the ER on last , 07/06/18 and was transferred to [place] as she had her last ventral recurrent hernia repair there on June [address] Flores. Patient states she stayed at [place] until Tuesday night and she was referred to hernia specialist; however she does not have insurance and could not afford the co-pay. Patient did have nausea and vomiting today as well. She was unable to keep the oxycodone she had received from [place] down due to the nausea and vomiting. Patient has past medical history for some type of bile reflux surgery done by Dr. Rehman at [place]. Since then patient has had 3 emergency [...] at the hospital or after discharge from [place]. Past Medical History Past Medical History (Chronic [...] one was done June 09, 2018. BUSINESS DEVELOPMENT COORDINATOR History: No pertinent BUSINESS DEVELOPMENT COORDINATOR history Smoking Status: Former smoker - *Family [...] about 25 pounds. Rosetta Miles M.D. Pager: [phone] [facility] [address] [place] [address], Outpatient [facility], [address] [place] [address] Office: [phone] 07/12/18 1051 <Electronically signed by Rosetta Miles MD> Date Rosetta Miles MD Cosigner Signature: Date (if applicable) CC: No Primary Care Physician; Rosetta Miles MD Signed BASIC METABOLIC Collected: 07/12/2018 Status: F Source: EDISON PROFILE ([facility]) 5:15 AM [facility] REPOSITORY TYPE CODE TESTS RESULT OUT OF [...] Normal 9 Performed By: #### L500.2500 #### [facility] [address] [place], [address] ,URINE Collected: 07/12/2018 Status: F Source: MULLIKEN 2:00 AM [facility] REPOSITORY TYPE CODE TESTS RESULT OUT OF REFERENCE UNITS RANGE LAB L400.8000 Negative Normal HCGUQUAL Negative Result Comment: Very dilute urine specimens, as indicated by a low specific gravity, may not contain front office representative levels of hCG. If is still suspected, a first morning urine specimen should be collected 48 hours later and tested. Performed By: #### L400.7600 #### [facility] [address] [place], [address] EMERGENCY DEPARTMENT Observed: 07/11/2018 Status: F Source: MULLIKEN SUMMARY 11:23 PM [facility] REPOSITORY [facility] Medical Records Department [address] [place] [address] Emergency Department Summary 07/11/182019 MR#: [id number] Acct: [id number] Name: REBEKA MARES Rep #: [id number] : 1985 33 From: Jose Shelby MD PCP: Care Physician, No Primary Status: ADM J LUIS - ER Visit Summary Date of Service: 07/11/18 Chief Complaint: Abdominal pain with nausea and vomiting History of Present Illness: The patient is a 33 F prior abdominal hernia repairs x3. Started having pain last , July 06. Was seen at [facility] ER. The general surgeon art education professor requested the patient be transferred. She was seen and treated at [facility] for several days. They did not feel [...] and Phenergan. I have the general surgeon art education professor Dr. Trudy Miles. With most likely surgery tomorrow. Treatment Plan: [] Disposition: [] Impression: Acute abdominal pain with nausea vomiting Rule out incarcerated periumbilical hernia This note was generated with Hitsbook dictation software. It may contain incorrect words, [...] your Primary Care Provider. Call [facility] ([phone]) or report to the closest Emergency Room. Call 911 if necessary. 07/11/18 1452 <Electronically signed by Jose Shelby MD> Date Jose Shelby MD Cosigner Signature (If Indicated): Date CC: No Primary Care Physician ABDOMEN/PELVIS W IV CONT Observed: 07/11/2018 Status: F Source: EDISON ONLY 8:53 PM [facility] REPOSITORY [facility] Imaging Services [address] [place] [address] Abdomen/Pelvis W IV Cont ONLY MR#: [id number] Acct: [id number] Name: REBEKA MARES Rep #: [id number] : 1985 F 33 From: Mehrdad Sher MD PCP: Care Physician, No Primary Status: REG ER Study: Abdomen/Pelvis W IV Cont ONLY Date of Exam: 07/11/18 Exam# [id number] Ordering Dr: Jose Shelby MD STUDY: CT [...] No Primary Care Physician; Jose Shelby MD Spice Room Worker: Signed CBC W/DIFF, AUTOMATED Collected: 07/11/2018 Status: F Source: EDISON 8:15 PM [facility] REPOSITORY TYPE CODE TESTS RESULT OUT OF [...] Lymph 2.23 Performed By: #### L100.0100 #### [facility] [address] [place], [address] BASIC METABOLIC Collected: 07/11/2018 Status: F Source: EDISON PROFILE (BMP) 8:15 PM [facility] REPOSITORY TYPE CODE TESTS RESULT OUT OF [...] GAP 11 Performed By: #### L500.2500 #### [facility] [address] [place], [address] CBC Collected: 07/07/2018 Status: F Source: [facility] 4:53 AM [facility] REPOSITORY TYPE CODE TESTS [...] Performed By: #### CBC, ADIFF, ANEU #### [place] [address] .AUTO DIFF Collected: 07/07/2018 Status: F Source: [facility] 4:53 AM [facility] REPOSITORY TYPE CODE TESTS RESULT OUT OF [...] Performed By: #### CBC, ADIFF, ANEU #### [place] [address] .NEUABS Collected: 07/07/2018 Status: F Source: [facility] 4:53 AM [facility] REPOSITORY TYPE CODE TESTS RESULT OUT OF REFERENCE UNITS RANGE LAB ANEU(LOINC) 2.25-8.10 10 3/mcL Neutrophil, 6.30 Absolute Performed By: #### CBC, ADIFF, ANEU #### [place] [address] EMERGENCY DEPARTMENT Observed: 2018 Status: F Source: EDISON SUMMARY 6:19 PM [facility] REPOSITORY [facility] Medical Records Department [address] [place] [address] Emergency Department Summary 07/06/18 1815 MR#: [id number] Acct: [id number] Name: REBEKA MARES Rep #: [id number] : 1985 33 From: Santhosh Brown DO [...] last of which was June 09 at [facility]. Patient denies any diarrhea. She denies [...] Mendez asked that we transfer patient to [facility] where she had her latest surgery. I discussed case with [facility] and Dr. Flores accepted transfer of the patient.] Disposition: [Transfer] Impression: [Abdominal pain with recurrent ventral hernia] This note was generated with Hitsbook dictation software. It may contain incorrect words, [...] your Primary Care Provider. Call [facility] ([phone]) or report to the closest Emergency Room. Call 911 if necessary. 07/06/181818 <Electronically signed by Santhosh Brown DO> Date Santhosh Brown DO Cosigner Signature (If Indicated): Date CC: No Primary Care Physician LACTIC ACID Collected: 2018 Status: F Source: [place] 4:20 PM [facility] REPOSITORY Order Comment: REDRAW. PREVIOUS SPECIMEN REJECTED DUE TO HEMOLYZED SPECIMEN. 07/06/18 1611 Daisy Alicia. TYPE CODE TESTS RESULT OUT OF REFERENCE UNITS RANGE LAB L503.6005 0.4-2.0 mmol/L High LACTIC ACID 3.2 Result Comment: Critical Result(s) Called at: 17:03:35 2018 by: Daisy Alicia to [facility] Performed By: #### L503.6005 #### [facility] [address] [place], [place], [address] ABDOMEN/PELVIS WITH Observed: 2018 Status: F Source: MULL[place] CONTRAST 3:14 PM [facility] REPOSITORY [facility] Imaging Services [address] [place] [address] Abdomen/Pelvis WITH Contrast MR#: [id number] Acct: [id number] Name: REBEKA MARES Rep #: [id number] : 1985 F 33 From: Nick Armendariz DO PCP: Care Physician, No Primary Status: REG ER Study: Abdomen/Pelvis WITH Contrast Date of Exam: 07/06/18 Exam# [id number] Ordering Dr: Santhosh Brown DO STUDY: CT [...] No Primary Care Physician; Santhosh Brown DO Spice Room Worker: Signed CBC W/DIFF, AUTOMATED Collected: 2018 Status: F Source: [place]ISON 3:05 PM [facility] REPOSITORY TYPE CODE TESTS RESULT OUT OF [...] Lymph 2.81 Performed By: #### L100.0100 #### [facility] [address] [place], [address] BASIC METABOLIC Collected: 2018 Status: F Source: ED[place] PROFILE (BMP) 3:05 PM [facility] REPOSITORY TYPE CODE TESTS RESULT OUT OF [...] GAP 15 Performed By: #### L500.2500 #### [facility] [address] [place], [place], [address] ,SERUM,HCG QUALI. Collected: Status: F Source: EDISON 2018 3:05 PM [facility] REPOSITORY TYPE CODE TESTS RESULT OUT OF REFERENCE UNITS RANGE LAB L700.7000 0-9 Nonpreg Negative Normal HCGSQUAL NEGATIVE LAB L700.6700 =>Qualitative mIU/mL Normal HCG Qual < 1 triggr Performed By: #### L700.6800 #### [facility] [address] [place], [address] 12 LEAD ELECTROCARDIOGRAM Observed: 06/26/2018 Status: F Source: [place] 3:02 PM [facility] REPOSITORY [facility] Cardiovascular Services [address] [place] [address] 12 Lead EKG 06/22/18 1151 MR#: [id number] Acct: [id number] Name: REBEKA MARES Rep #: [id number] : 1985 32 From: Thompson Funez MD [...] ECG Confirmed by PATRICK DODD, THOMPSON ([id number]), video editor KEZIA BARKER ([id number]) on 06/26/2018 3:02:02 PM Referred By: HAN Confirmed By:THOMPSON FUNEZ MD 06/26/18 1502 Date Thompson Funez MD CC: No Primary Care Physician; Tim Ren DO Signed EMERGENCY DEPARTMENT Observed: 06/22/2018 Status: F Source: [place] SUMMARY 1:34 PM [facility] REPOSITORY [facility] Medical Records Department [address] [place] [address] Emergency Department Summary 06/22/18 1139 MR#: [id number] Acct: [id number] Name: REBEKA MARES Rep #: [id number] : 1985 32 From: Tim Ren DO [...] Impression: Syncope This note was generated with [employer] software. It may contain incorrect words, spelling, [...] your Primary Care Provider. Call [facility] ([phone]) or report to the closest Emergency Room. Call 911 if necessary. 06/22/18 1334 <Electronically signed by Tim Ren DO> Date Tim Ren DO Cosigner Signature (If Indicated): Date CC: No Primary Care Physician CBC W/DIFF, AUTOMATED Collected: 06/22/2018 Status: F Source: EDISON 12:00 PM [facility] REPOSITORY TYPE CODE TESTS RESULT OUT OF [...] Lymph 2.16 Performed By: #### L100.0100 #### [facility] [address] [place], [address] COMPREHENSIVE METABOLIC Collected: 06/22/2018 Status: F Source: [facility] 12:00 PM [facility] REPOSITORY TYPE CODE TESTS RESULT OUT OF [...] GAP Performed By: #### L500.4050, L501.2450 #### [facility] [address] [place], [address] LIPASE Collected: 06/22/2018 Status: F Source: [place] 12:00 PM [facility] REPOSITORY TYPE CODE TESTS RESULT OUT OF RANGE REFERENCE UNITS LAB L501.2450 73-393 U/L Normal LIPASE 113 Performed By: #### L500.4050, L501.2450 #### [facility] [address] [place], [address] ,URINE Collected: 06/22/2018 Status: F Source: [place] 11:47 AM [facility] REPOSITORY Order Comment: Order Date: 06/22/18 TYPE CODE TESTS RESULT OUT OF REFERENCE UNITS RANGE LAB L400.8000 Negative Normal HCGUQUAL Negative Result Comment: Very dilute urine specimens, as indicated by a low specific gravity, may not contain front office representative levels of hCG. If is still suspected, a first morning urine specimen should be collected 48 hours later and tested. Performed By: #### L400.7600 #### [facility] [address] [place], [address] URINALYSIS, COMPLETE Collected: 06/22/2018 Status: F Source: [place] 11:47 AM [facility] REPOSITORY Order Comment: Order Date: 06/22/18 How [...] MUCUS, URINE Performed By: #### L400.0001 #### [facility] [address] [facility] [place], [address] CHEST PA AND LATERAL Observed: 06/22/2018 Status: F Source: [place] 11:37 AM [facility] REPOSITORY [facility] Imaging Services [address] [place] [address] Chest PA and Lateral MR#: [id number] Acct: [id number] Name: REBEKA MARES Rep #: [id number] : 1985 F 32 From: Sacha Roca MD PCP: Care Physician, No Primary Status: REG ER Study: Chest PA and Lateral Date of Exam: 06/22/18 Exam# [id number] Ordering Dr: Tim Ren DO STUDY: X-RAY [...] Sacha Roca MD at 12:56 EDT Tel [phone], Service support , CC: No Primary Care Physician; Tim Ren DO Spice Room Worker: Signed LAC Collected: 06/08/2018 Status: F Source: [facility] 2:39 PM [facility] REPOSITORY TYPE CODE TESTS RESULT OUT OF REFERENCE UNITS RANGE LAB LAC(LOINC) 0.2-2.0 mmol/L Lactic Acid 1.7 Lvl Performed By: #### LAC, CBC, ADIFF, ANEU, LIP, CMP, GFR #### [place] [address] CBC Collected: 06/08/2018 Status: F Source: [facility] [facility] 2:39 [place] EMERGENCY DEPARTMENT REPOSITORY TYPE CODE TESTS RESULT OUT OF [...] CBC, ADIFF, ANEU, LIP, CMP, GFR #### [address] [address] .AUTO DIFF Collected: 06/08/2018 Status: F Source: [facility] 2:39 PM [facility] REPOSITORY TYPE CODE TESTS RESULT OUT OF [...] CBC, ADIFF, ANEU, LIP, CMP, GFR #### [address] [address] .NEUABS Collected: 06/08/2018 Status: F Source: [facility] 2:39 PM [facility] REPOSITORY TYPE CODE TESTS RESULT OUT OF REFERENCE UNITS RANGE LAB ANEU(LOINC) 2.25-8.10 10 3/mcL Neutrophil, 7.00 Absolute Performed By: #### LAC, CBC, ADIFF, ANEU, LIP, CMP, GFR #### [address] [address] LIP Collected: 06/08/2018 Status: F Source: [facility] 2:39 PM [facility] REPOSITORY TYPE CODE TESTS RESULT OUT OF REFERENCE UNITS RANGE LAB LIP(LOINC) 73-393 U/L Lipase Level 90 Performed By: #### LAC, CBC, ADIFF, ANEU, LIP, CMP, GFR #### [address] [address] CMP Collected: 06/08/2018 Status: F Source: [facility] 2:39 PM [facility] REPOSITORY TYPE CODE TESTS RESULT OUT OF [...] CBC, ADIFF, ANEU, LIP, CMP, GFR #### [address] [address] .GFR Collected: 06/08/2018 Status: F Source: [facility] 2:39 PM [facility] REPOSITORY TYPE CODE TESTS RESULT OUT OF REFERENCE UNITS RANGE LAB GFRAA(LOINC ml/min/1.73 ) sqm GFR >60 Croatian Result Comment: GFR Population mean for , [...] CBC, ADIFF, ANEU, LIP, CMP, GFR #### [facility] [address] [place] [address] ED DOC Observed: 06/06/2018 Status: UNK Source: [facility] 8:10 PM [facility] REPOSITORY This is a preliminary report only, as the practitioner review and authentication has not occurred. ED DOC Observed: 06/06/2018 Status: UNK Source: [facility] 8:10 PM [facility] REPOSITORY PHYSICIAN ASSESSMENT RECORDS : FlexChartData Event Time: 06/06/2018 17:10 [facility] Status: Signed [facility] Rebeka Mares [[id number]] Mid-Level Chart (V2b) / / 1985 Chart created at 06/06/2018 17:00 by Heath Calle PA-C Chart closed at 06/06/2018 19:33 Entry in Emergency Department at 06/06/2018 12:43, departure at 06/06/2018 20:10 Patient Name: Rebeka Mares Record Number: [id number] Date: 06/06/2018 17:00 Entered Department at: 06/06/2018 [...] not called the general surgeon as she [facility] PATIENT NAME: REBEKA MARES [address] [facility] [address] MEDICAL REC #: [id number] [place] [address] EMERGENCY DEPARTMENT CHART EMERGENCY DEPARTMENT PHYSICIAN cannot [...] 06/06/2018, 5:17 pm LACTATE BLOOD: 1.69 Mmol/L [facility] PATIENT NAME: REBEKA MARES [facility] [address] MEDICAL REC #: [id number] [place] [address] EMERGENCY DEPARTMENT CHART EMERGENCY DEPARTMENT PHYSICIAN CBC [...] transaxial 3.75 mm slices were obtained through [facility] PATIENT NAME: REBEKA MARES [address] [facility] [address] MEDICAL REC #: [id number] [place] [address] EMERGENCY DEPARTMENT CHART EMERGENCY DEPARTMENT PHYSICIAN the [...] bowel obstruction. No acute osseous findings are [facility] PATIENT NAME: REBEKA MARES [facility] [address] MEDICAL REC #: [id number] [place] [address] EMERGENCY DEPARTMENT CHART EMERGENCY DEPARTMENT PHYSICIAN seen. [...] as this is the definitive treatment option. [facility] PATIENT NAME: REBEKA MARES [address] MEDICAL REC #: [id number] [place] [address] EMERGENCY DEPARTMENT CHART EMERGENCY DEPARTMENT PHYSICIAN Patient [...] FlexChartData Event Time: 06/06/2018 21:05 Status: Signed [facility] Rebeka Mares [[id number]] Attending Physician 1985 Addendum (V2b) Chart created at 06/06/2018 20:29 by Arturo Ortiz Chart closed at 06/06/2018 20:30 Entry in Emergency Department at 06/06/2018 12:43, departure at 06/06/2018 20:10 [facility] PATIENT NAME: REBEKA MARES [address] MEDICAL REC #: [id number] [place] [address] EMERGENCY DEPARTMENT CHART EMERGENCY DEPARTMENT PHYSICIAN Patient Name: Rebeka Mares Record Number: [id number] Date: 06/06/2018 20:29 Entered Department at: 06/06/2018 [...] REPORT=== : FlexChartData Event Time: 06/06/2018 17:10 [facility] : MaryDadariusz Event Time: 06/06/2018 21:05 : Discharge Report Event Time: 06/06/2018 19:34 Status: Draft Reasons to Return to the ER: [facility] PATIENT NAME: REBEKA MARES [address] MEDICAL REC #: [id number] [place] [address] EMERGENCY DEPARTMENT CHART EMERGENCY DEPARTMENT PHYSICIAN You [...] prescriptions filled. EKG and Radiology Results: A nature photographer or radiologist will review any EKG or [...] are aware and can make suggestions DIAGNOSIS: [facility] PATIENT NAME: REBEKA MARES Dr[address] MEDICAL REC #: [id number] [place] [id number] EMERGENCY DEPARTMENT CHART EMERGENCY DEPARTMENT PHYSICIAN acute [...] that you must fill and start taking: Needham 5 mg-325 mg tablet, count:20, Dose = 1-2, count:20, 5 days, count:20, q8hrs, count:20, Number of Refills = 0, count:20, R10.8, count:20 [facility] PATIENT NAME: REBEKA MARES [facility] [address] MEDICAL REC #: [id number] [place] [address] EMERGENCY DEPARTMENT CHART EMERGENCY DEPARTMENT PHYSICIAN COMMENTS: [...] : 1985 Age: 32 yr Account No: [id number] Registration Date: 12:43 06/06/2018 Address: [address] [place] [address] Address: [place] [address] [facility] PATIENT NAME: REBEKA MARES [address] MEDICAL REC #: [id number] [place] [address] EMERGENCY DEPARTMENT CHART EMERGENCY DEPARTMENT PHYSICIAN REGISTRATION ED Number: [id number] Marital Status: D Financial Class: SELF TRIAGE Priority: 3 - Urgent Complaint: Abdominal Pain Stated Complaint: LUQ abdomen pain x4 days. Dx with hernia 4 years ago, has not had surgery d/t no insurance Arrival Date: 06/06/2018 12:43 Triage Date: 06/06/2018 12:58 Mode of Arrival: *Privately Owned Vehicle Transfer From: * Home WC: N Language: [place] Transport: Ambulatory/Walk In BED A12 In: 06/06/2018 16:32:45 06/06/2018 16:32:45 KMGA A12 (Removed From) Out: 06/06/2018 20:10:41 06/06/2018 20:10:41 [facility] PROVIDERS BENNETT Calle Provider Contact: 06/06/2018 16:36:26 [facility] End: MD Arturo Ortiz Provider Contact: 06/06/2018 16:36:31 JOSE CRUZ End: TAMY LOPEZ Provider Contact: 06/06/2018 16:58:35 [facility] End: [facility] PATIENT NAME: REBEKA MARES [address] MEDICAL REC #: [id number] [place] [address] EMERGENCY DEPARTMENT CHART EMERGENCY DEPARTMENT PHYSICIAN TRIAGE [...] JIF Social History: Alcohol-Rarely 06/06/2018 13:00 JIF [facility] PATIENT NAME: VISHNUREBEKA Miki [address] MEDICAL REC #: [id number] [place] [address] EMERGENCY DEPARTMENT CHART EMERGENCY DEPARTMENT PHYSICIAN Social History: Have you traveled in the past month? 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 Call light within reach. 06/06/2018 17:24 [facility] 06/06/2018 18:58 BMP REDRAWN AND SENT [...] Name Band on Pt 06/06/2018 17:23 CDCA [facility] PATIENT NAME: REBEKA MARES [facility] [address] MEDICAL REC #: [id number] [place] [address] EMERGENCY DEPARTMENT CHART EMERGENCY DEPARTMENT PHYSICIAN 06/06/2018 [...] Primary DOC Guide - E. Family Violence [facility] PATIENT NAME: REBEKA MARES Miki [address] MEDICAL REC #: [id number] [place] [address] EMERGENCY DEPARTMENT CHART EMERGENCY DEPARTMENT PHYSICIAN Assessment [...] to follow up and to return with [facility] PATIENT NAME: REBEKA MARES [facility] [address] MEDICAL REC #: [id number] [place] [address] EMERGENCY DEPARTMENT CHART EMERGENCY DEPARTMENT PHYSICIAN any new or worsening symptoms. 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 MEDICAL REC #: [id number] [place] [address] EMERGENCY DEPARTMENT CHART EMERGENCY DEPARTMENT PHYSICIAN VITALS VS-ROUTINE Time: 06/06/2018 12:58 B/P: 151/85 - Left Upper Arm - Sitting - Machine Pulse: 111 - Machine Wiper Resp: 18 Sa02: 98 Room Air Temp: [...] VS-FHT Time: 06/06/2018 19:12 06/06/2018 19:12 CDCA [facility] PATIENT NAME: REBEKA MARES [facility] MEDICAL REC #: [id number] [place] [address] EMERGENCY DEPARTMENT CHART EMERGENCY DEPARTMENT PHYSICIAN VS-Notes [...] Other Reviewed: 06/06/2018 19:49 By . Other REPRODUCTION ARTIST ORDER: GFRP 06/06/2018 19:20 None Ordered: 06/06/2018 19:20 Completed Time: 06/06/2018 19:20 Results Time: 06/06/2018 19:20 REPRODUCTION ARTIST ORDER: BMP 06/06/2018 19:20 None Ordered: 06/06/2018 19:20 Completed Time: 06/06/2018 19:20 Results Time: 06/06/2018 19:20 CBC with diff 06/06/2018 17:27 N/A Ordered: 06/06/2018 16:46 By Heath Calle Completed Time: 06/06/2018 17:27 By Heath Calle Noted Time: 06/06/2018 17:21 [facility] Results Time: 06/06/2018 17:27 UA ccms (cath if unable to void in 30 mins) 06/06/2018 20:05 [facility] PATIENT NAME: REBEKA MARES [address] MEDICAL REC #: [id number] [place] [address] EMERGENCY DEPARTMENT CHART EMERGENCY DEPARTMENT PHYSICIAN N/A [...] N/A Ordered: 06/06/2018 16:46 By Heath Calle [facility] PATIENT NAME: REBEKA MARES [facility] [address] MEDICAL REC #: [id number] [place] [address] EMERGENCY DEPARTMENT CHART EMERGENCY DEPARTMENT PHYSICIAN Completed [...] 06/06/2018 19:34 Admit Physician: . Other PRESCRIPTIONS Needham 5 mg-325 mg tablet 06/06/2018 19:01 NM SI-2 q8hrs pain for 5 days [facility] PATIENT NAME: REBEKA MARES [address] MEDICAL REC #: [id number] [place] [address] EMERGENCY DEPARTMENT CHART EMERGENCY DEPARTMENT PHYSICIAN Additional Instructions: R10.8 Dispense: 20 / Refills: CHARGES 0.9% NS 1000cc bag QTY @ 1 06/06/2018 17:21 [facility] Auto Generated Charge SIGNATURE Arturo Calle PA-C [facility] TAMY LOPEZ CDCA [facility] PATIENT NAME: REBEKA MARES [address] MEDICAL REC #: [id number] [place] [address] EMERGENCY DEPARTMENT CHART EMERGENCY DEPARTMENT PHYSICIAN BMP Collected: 06/06/2018 Status: F Source: [facility] 6:53 PM [facility] REPOSITORY TYPE CODE TESTS RESULT OUT OF RANGE REFERENCE UNITS LAB L500.54527 136-145 MMOL/L Normal NA 140 LAB L500.38236 3.5-5.1 MMOL/L Normal K 4.0 LAB L500.15912 98-107 MMOL/L High CL 108 LAB L500.13142 21-32 MMOL/L Normal CO2 22 LAB L500.38296 5-16 MMOL/L Normal AGAP 10 LAB L500.13219 70-100 MG/DL Normal GLU 94 Result Comment: 70-100- Normal Fasting; 100-125 Impaired Fasting; greater than 126 on more than one result- Diabetes. ADA guidelines. Results may be falsely elevated after the administration of Sulfapyridine. Results may be falsely depressed after the administration of Sulfasalazine. LAB L500.33786 7-26 MG/DL Normal BUN 8 LAB L500.55604 0.510-0.950 MG/DL Low CREAT 0.481 Result Comment: Patients receiving either N-Acetylcysteine (NAC) or Metamizole prior to venipuncture, may have falsely depressed results. LAB L500.14246 15-24 Normal BUN/CREA 17 LAB L500.99362 8.5-10.1 MG/DL Normal CALCIUM TOTAL 8.6 Performed By: #### L500.54786, L500.88863 #### [facility] [address] [place] [address] GFR EST Collected: 06/06/2018 Status: F Source: [facility] 6:53 PM [facility] REPOSITORY TYPE CODE TESTS RESULT OUT OF RANGE REFERENCE UNITS LAB L500.81978 ML/MIN Normal IF non-AFR Greater than AMER 60 LAB L500.36861 ML/MIN Normal IF Greater than AMER 60 Performed By: #### L500.61155, L500.07424 #### [facility] [address] [place] [address] UA COMPLETE Collected: 06/06/2018 Status: F Source: [facility] 6:53 PM [facility] REPOSITORY Order Comment: Erie: TYPE CODE TESTS RESULT OUT OF REFERENCE UNITS RANGE LAB L600.47435 UA COLOR Normal Yellow LAB L600.58448 CLEAR UA Normal APPEARANCE Hazy LAB L600.37488 1.005-1.030 UA SPEC Normal GRAV 1.051 LAB L600.86116 UA PH Normal 6.0 LAB L600.36753 UA GLUCOSE Normal NEG LAB L600.34937 UA KETONE Normal 20 LAB L600.29078 UA Normal BILIRUBIN NEGATIVE LAB L600.19298 UA Normal UROBILINOGEN NEG LAB L600.49339 NEGATIVE UA PROTEIN Normal NEGATIVE LAB L600.27517 NEGATIVE UA BLOOD Normal SMALL LAB L600.72630 NEGATIVE UA NITRITE Normal NEGATIVE LAB L600.49186 NEGATIVE UA LK Normal ESTERASE NEG LAB L600.05918 0-5 WBC/HPF UA WBC Normal 3 LAB L600.82617 0-3 RBC/HPF UA RBC High 8 LAB L600.38771 0-5 EPI/HPF SQUAMOUS High EPIS 6 LAB L600.97234 NONE /HPF UA BACTERIA Normal TRACE LAB L600.19686 MUCUS Normal TRACE Performed By: #### L600.98552 #### [facility] [address] [place] [address] LACTATE BLOOD Collected: 06/06/2018 Status: F Source: [facility] 5:17 PM [facility] REPOSITORY Order Comment: Erie: M TYPE CODE TESTS RESULT OUT OF RANGE REFERENCE UNITS LAB L550.50855 0.40-2.00 MMOL/L Normal LACTATE BLOOD 1.69 Performed By: #### L550.12363 #### [facility] [address] [place] [address] CBC W/DIFF Collected: 06/06/2018 Status: F Source: [facility] 5:17 PM [facility] REPOSITORY Order Comment: Erie: M TYPE CODE TESTS RESULT OUT OF RANGE REFERENCE UNITS LAB L200.58558 4.5-11.0 K/CU MM High WBC 11.4 LAB L200.05491 3.90-5.30 M/CU MM RBC Normal 4.91 LAB L200.14772 11.5-15.5 G/DL HGB Normal 14.8 LAB L200.44763 35.0-47.0 % HCT Normal 43.8 LAB L200.36272 80.0-99.0 fl MCV Normal 89.2 LAB L200.38320 32.0-36.0 GM/DL MCHC Normal 33.8 LAB L200.01758 11-14.5 RDW Normal 12.8 LAB L200.48940 9.4-12.4 Low MPV 9.1 LAB L200.02907 150-450 K/CU MM PLT Normal 282 LAB L200.65217 45-75 % NEUTROPHILS Normal % 72.0 LAB L200.83114 Less than 2 % IMMATURE Normal GRAN % 0.5 LAB L200.20989 20-40 % LYMPH % Normal 20.0 LAB L200.15502 2-10 % MONOCYTE % Normal 5.6 LAB L200.96865 0-5 % EOSINOPHIL Normal % 1.6 LAB L200.85381 0-2 % BASOPHIL % Normal 0.3 LAB L200.50480 2.0-8.3 K/CU MM NEUTROPHIL Normal ABS 8.20 LAB L200.29641 Less than 2 K/CU MM IMMATR GRAN Normal ABS 0.10 LAB L200.75207 0.9-4.4 K/CU MM LYMPH ABS Normal 2.30 LAB L200.03177 0.1-1.1 K/CU MM MONO ABS Normal 0.60 LAB L200.02781 0-0.5 K/CU MM EOS ABS Normal 0.20 LAB L200.95866 0-0.2 K/CU MM BASO ABS Normal 0.00 LAB L200.43269 Less than 1 % NRBC Normal 0.0 Performed By: #### L200.27990 #### [facility] [address] [place] [address] HCG Collected: 06/06/2018 Status: F Source: [facility] 5:17 PM [facility] REPOSITORY Order Comment: Erie: TYPE CODE TESTS RESULT OUT OF RANGE REFERENCE UNITS LAB L500.47096 NEGATIVE Normal HCG SER NEGATIVE RESULT Performed By: #### L500.26399 #### [facility] [address] [place] [address] CT ABD/PEL W IV Observed: 06/06/2018 Status: F Source: [facility] CONTRAST ONLY 3:38 PM [facility] REPOSITORY CT ABD/PEL W IV CONTRAST [...] ED DOC Observed: 06/04/2018 Status: UNK Source: [facility] 5:08 PM [facility] REPOSITORY This is a preliminary report only, as the practitioner review and authentication has not occurred. ED DOC Observed: 06/04/2018 Status: UNK Source: [facility] 5:08 PM [facility] REPOSITORY PHYSICIAN ASSESSMENT RECORDS : FlexChartData Event Time: 06/04/2018 16:40 Status: Signed [facility] Rebeka Vishnu [[id number]] Mid-Level Chart (V2b) 32 / F / 1985 Chart created at 06/04/2018 16:28 by Bola Bruce Chart closed at 06/04/2018 16:38 Entry in Emergency Department at 06/04/2018 11:47, departure at 06/04/2018 17:08 Patient Name: Rebeka Mares Record Number: [id number] Date: 06/04/2018 16:28 Entered Department at: 06/04/2018 [...] thus far by a physician out in [place]. She has since moved to the [facility] but does not have a surgeon for follow-up locally. [facility] PATIENT NAME: REBEKA MARES [address] MEDICAL REC #: [id number] [place] [address] EMERGENCY DEPARTMENT CHART EMERGENCY DEPARTMENT PHYSICIAN HPI [...] BMP, information as of 06/04/2018, 2:12 pm [facility] PATIENT NAME: REBEKA MARES [facility] [address] MEDICAL REC #: [id number] [place] [address] EMERGENCY DEPARTMENT CHART EMERGENCY DEPARTMENT PHYSICIAN 138 [...] PM CT ABDOMEN PELVIS IV CONTRAST ONLY [facility] PATIENT NAME: VISHNUREBEKA [address] MEDICAL REC #: [id number] [place] [address] EMERGENCY DEPARTMENT CHART EMERGENCY DEPARTMENT PHYSICIAN Clinical [...] The aorta is normal course and caliber. [facility] PATIENT NAME: REBEKA MARES [address] [facility] [address] MEDICAL REC #: [id number] [place] [address] EMERGENCY DEPARTMENT CHART EMERGENCY DEPARTMENT PHYSICIAN The [...] Her pain has subsided to the point [facility] PATIENT NAME: REBEKA MARES [address] MEDICAL REC #: [id number] [place] [id number] EMERGENCY DEPARTMENT CHART EMERGENCY DEPARTMENT PHYSICIAN where [...] FlexChartData Event Time: 06/04/2018 17:15 Status: Signed [facility] Rebeka Mares [[id number]] Attending Physician / / 1985 Chart (V2b) Chart created at 06/04/2018 16:41 by Cody Flynn Chart closed at 06/04/2018 16:42 Entry in Emergency Department at 06/04/2018 11:47, departure at 06/04/2018 17:08 Patient Name: Rebeka Mares Record Number: [id number] [facility] PATIENT NAME: REBEKA MARES [address] MEDICAL REC #: [id number] [place] [address] EMERGENCY DEPARTMENT CHART EMERGENCY DEPARTMENT PHYSICIAN Date: [...] follow-up. Please follow all your discharge instructions. [facility] PATIENT NAME: REBEKA MARES [address] MEDICAL REC #: [id number] [place] [address] EMERGENCY DEPARTMENT CHART EMERGENCY DEPARTMENT PHYSICIAN Medications: [...] prescriptions filled. EKG and Radiology Results: A nature photographer or radiologist will review any EKG or [...] Maintain follow-up with your general surgeon in [place] UNLESS THE ER DOCTOR GIVES YOU OTHER INSTRUCTIONS, YOU MUST SEE YOUR FOLLOW-UP DOCTOR WITHIN 1 TO 2 DAYS FOR RECHECK. YOU MUST RETURN TO THE ER RIGHT AWAY FOR ANY OF THE FOLLOWING:Increasing painChange in the location of [facility] PATIENT NAME: REBEKA MARES [address] MEDICAL REC #: [id number] [place] [address] EMERGENCY DEPARTMENT CHART EMERGENCY DEPARTMENT PHYSICIAN the [...] count:12, Dose = 1, count:12, q8h, count:12 Needham 5 mg-325 mg tablet, count:16, Dose = [...] and understand the oral instructions regarding my [facility] PATIENT NAME: REBEKA MARES [facility] [address] MEDICAL REC #: [id number] [place] [address] EMERGENCY DEPARTMENT CHART EMERGENCY DEPARTMENT PHYSICIAN medical problem. I also acknowledge receipt of this written instruction sheet including a list of major tests and procedures ordered during my visit. I will arrange for follow-up care as indicated by these instructions and referrals. This signed original will be kept in my medical record. Your signature below indicates consent for Case Management to contact [facility] providers in an effort to meet your ongoing healthcare needs. This will allow forcontinuity of care once you leave the Emergency Department. This exchange of informationwill include, but not be limited to, disclosure of your patient information and possible release of records. 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[employer] Patient: REBEKA MARES Sex: F : 1985 Age: 32 yr Account No: [id number] Registration Date: 11:47 06/04/2018 Address: [place] Address: [place] [address] REGISTRATION ED Number: [id number] Marital Status: D Financial Class: SELF TRIAGE Priority: 3 - Urgent Complaint: Abdominal Pain Stated Complaint: pt comes in with abd pain, pt stated that her hernia popped out this morning Arrival Date: 06/04/2018 11:47 Triage Date: 06/04/2018 11:48 Mode of Arrival: *Privately Owned Vehicle [facility] PATIENT NAME: REBEKA MARES [address] MEDICAL REC #: [id number] [place] [address] EMERGENCY DEPARTMENT CHART EMERGENCY DEPARTMENT PHYSICIAN Transfer From: * Home WC: N Language: Citizen [place] Transport: Ambulatory/Walk In BED E37 In: 06/04/2018 [...] 11:50 KASD Surgery: Appendectomy 06/04/2018 11:50 KASD [facility] PATIENT NAME: REBEKA MARES [address] MEDICAL REC #: [id number] [place] [address] EMERGENCY DEPARTMENT CHART EMERGENCY DEPARTMENT PHYSICIAN Surgery: [...] SUMMER Cano MADE AWARE 06/04/2018 15:49 RSS [facility] PATIENT NAME: REBEKA MARES [address] [facility] [address] MEDICAL REC #: [id number] [place] [address] EMERGENCY DEPARTMENT CHART EMERGENCY DEPARTMENT PHYSICIAN TREATMENT [...] Used? No (0) Altered Elimination? No (0) [facility] PATIENT NAME: REBEKA MARES [address] MEDICAL REC #: [id number] [place] [address] EMERGENCY DEPARTMENT CHART EMERGENCY DEPARTMENT PHYSICIAN Fall [...] Fluid: B 06/04/2018 14:58 06/04/2018 14:58 DRBA [facility] PATIENT NAME: REBEKA MARES [address] [facility] [address] MEDICAL REC #: [id number] [place] [address] EMERGENCY DEPARTMENT CHART EMERGENCY DEPARTMENT PHYSICIAN Line [...] VS-FHT Time: 06/04/2018 15:00 06/04/2018 15:01 DRBA [facility] PATIENT NAME: REBEKA MARES [facility] [address] MEDICAL REC #: [id number] [place] [address] EMERGENCY DEPARTMENT CHART EMERGENCY DEPARTMENT PHYSICIAN VS-Notes [...] Bola Bruce Noted Time: 06/04/2018 15:24 RSS REPRODUCTION ARTIST ORDER: HCG 06/04/2018 15:18 None Ordered: 06/04/2018 15:18 Completed Time: 06/04/2018 15:18 Results Time: 06/04/2018 15:18 Benadryl (IV)*(50mg/ml) DOSE: 25 mg IV 06/04/2018 15:06 [facility] PATIENT [facility]: [facility] MEDICAL REC #: [id number] [place] [address] EMERGENCY DEPARTMENT CHART EMERGENCY DEPARTMENT PHYSICIAN N/A Ordered: 06/04/2018 15:02 By Bola Bruce Completed Time: 06/04/2018 15:06 By Bola Bruce Noted Time: 06/04/2018 15:03 DRBA REPRODUCTION ARTIST ORDER: GFRP 06/04/2018 14:55 None Ordered: 06/04/2018 [...] (IV)*(4mg/ml) DOSE:4 mg IV 06/04/2018 14:34 N/A [facility] PATIENT NAME: REBEKA MARES [address] MEDICAL REC #: [id number] Surendra [facility] EMERGENCY DEPARTMENT CHART EMERGENCY DEPARTMENT PHYSICIAN Ordered: [...] 06/04/2018 14:55 N/A Ordered: 06/04/2018 14:07 By Bloa Bruce Completed Time: 06/04/2018 14:55 By Bola [...] Large ventral hernia Disposition: Time: 06/04/2018 16:38 [facility] PATIENT NAME: REBEKA MARES [address] MEDICAL REC #: [id number] [place] [address] EMERGENCY DEPARTMENT CHART EMERGENCY DEPARTMENT PHYSICIAN Discharge Time: 06/04/2018 17:08 Type: Discharge Condition: Stable for admission/discharge/transfer after emergency evaluation/treatment Category: *NOT APPLICABLE Referral: 06/04/2018 16:40 Admit Physician: . Other PRESCRIPTIONS Phenergan 25 mg tablet 06/04/2018 16:39 SI q8h nausea Dispense: 12 / Refills: Needham 5 mg-325 mg tablet 06/04/2018 16:39 SI q6h for 4 days Additional Instructions: ICD 10 K 46. 9 Dispense: 16 / Refills: CHARGES SIGNATURE Cody MUNOZ [facility] PATIENT NAME: REBEKA MARES [facility] MEDICAL REC #: [id number] [place] [address] EMERGENCY DEPARTMENT CHART EMERGENCY DEPARTMENT PHYSICIAN CT ABD/PEL W IV Observed: 06/04/2018 Status: F Source: [facility] CONTRAST ONLY 2:28 PM [facility] REPOSITORY [...] CBC W/DIFF Collected: 06/04/2018 Status: F Source: [facility] 2:12 PM [facility] REPOSITORY Order Comment: [place]: M TYPE CODE TESTS RESULT OUT OF RANGE REFERENCE UNITS LAB L200.29901 4.5-11.0 K/CU MM High WBC 12.4 LAB L200.32776 3.90-5.30 M/CU MM RBC Normal 4.90 LAB L200.23462 11.5-15.5 G/DL HGB Normal 14.8 LAB L200.21030 35.0-47.0 % HCT Normal 44.2 LAB L200.78685 80.0-99.0 fl MCV Normal 90.2 LAB L200.14001 32.0-36.0 GM/DL MCHC Normal 33.5 LAB L200.68183 11-14.5 RDW Normal 12.7 LAB L200.47992 9.4-12.4 Low MPV 9.3 LAB L200.73487 150-450 K/CU MM PLT Normal 292 LAB L200.45228 45-75 % NEUTROPHILS Normal % 68.6 LAB L200.82289 Less than 2 % IMMATURE Normal GRAN % 0.7 LAB L200.92486 20-40 % LYMPH % Normal 22.8 LAB L200.65529 2-10 % MONOCYTE % Normal 5.6 LAB L200.45011 0-5 % EOSINOPHIL Normal % 1.8 LAB L200.71137 0-2 % BASOPHIL % Normal 0.5 LAB L200.09455 2.0-8.3 K/CU MM High NEUTROPHIL ABS 8.50 LAB L200.67483 Less than 2 K/CU MM IMMATR GRAN Normal ABS 0.10 LAB L200.91211 0.9-4.4 K/CU MM LYMPH ABS Normal 2.80 LAB L200.42364 0.1-1.1 K/CU MM MONO ABS Normal 0.70 LAB L200.98385 0-0.5 K/CU MM EOS ABS Normal 0.20 LAB L200.60310 0-0.2 K/CU MM BASO ABS Normal 0.10 LAB L200.07803 Less than 1 % NRBC Normal 0.0 Performed By: #### L200.90737 #### [facility] [address] [id number] BMP Collected: 06/04/2018 Status: F Source: [facility] 2:12 PM [facility] REPOSITORY Order Comment: E[place]: TYPE CODE TESTS RESULT OUT OF RANGE REFERENCE UNITS LAB L500.19528 136-145 MMOL/L Normal NA 138 LAB L500.08269 3.5-5.1 MMOL/L Normal K 5.0 Result Comment: Moderate Hemolysis, Result may be falsely increased. LAB L500.28159 98-107 MMOL/L Normal CL 106 LAB L500.05673 21-32 MMOL/L Normal CO2 23 LAB L500.28606 5-16 MMOL/L Normal AGAP 10 LAB L500.91820 70-100 MG/DL High GLU 105 Result Comment: 70-100- Normal Fasting; 100-125 Impaired Fasting; greater than 126 on more than one result- Diabetes. ADA guidelines. Results may be falsely elevated after the administration of Sulfapyridine. Results may be falsely depressed after the administration of Sulfasalazine. LAB L500.58033 7-26 MG/DL Normal BUN 9 LAB L500.33350 0.510-0.950 MG/DL Low CREAT 0.485 Result Comment: Patients receiving either N-Acetylcysteine (NAC) or Metamizole prior to venipuncture, may have falsely depressed results. LAB L500.20710 15-24 Normal BUN/CREA 19 LAB L500.42921 8.5-10.1 MG/DL Normal CALCIUM TOTAL 9.9 Performed By: #### L500.06503, L500.02191, L500.68561, L500.21017, L500.87366 #### [facility] [address] [id number] GFR EST Collected: 06/04/2018 Status: F Source: [facility] 2:12 PM [facility] REPOSITORY Order Comment: [place]: M TYPE CODE TESTS RESULT OUT OF RANGE REFERENCE UNITS LAB L500.88060 ML/MIN Normal IF non-AFR Greater than AMER 60 LAB L500.83176 ML/MIN Normal IF Greater than AMER 60 Performed By: #### L500.72765, L500.24589, L500.89569, L500.93951, L500.07912 #### [facility] [address] [place] [address] LIVER Collected: 06/04/2018 Status: F Source: [facility] 2:12 PM [facility] REPOSITORY Order Comment: E[place]: M TYPE CODE TESTS RESULT OUT OF RANGE REFERENCE UNITS LAB L500.62696 6.0-8.5 GM/DL TP Normal 7.2 LAB L500.47342 3.2-5.0 GM/DL Normal ALBUMIN 4.1 LAB L500.53623 2.2-4.2 GM/DL Normal GLOBULIN 3.1 LAB L500.16621 0.8-2.0 Normal A/G RATIO 1.3 LAB L500.61748 0.2-1.0 MG/DL Normal BILI TOTAL 0.3 LAB L500.39587 0.00-0.20 MG/DL Normal BILI DIRECT LESS THAN 0.05 LAB L500.72985 8-34 U/L Normal SGOT (AST) 24 Result Comment: Moderate Hemolysis, Result may be falsely increased. RESULTS MAY BE FALSELY DEPRESSED AFTER THE ADMINISTRATION OF SULFASALAZINE AND/OR SULFAPYRIDINE. LAB L500.22391 13-61 IU/L Normal SGPT (ALT) 24 Result Comment: RESULTS MAY BE FALSELY DEPRESSED AFTER THE ADMINISTRATION OF SULFASALAZINE AND/OR SULFAPYRIDINE. LAB L500.51661 45-117 U/L Normal ALK PHOS 56 Performed By: #### L500.59985, L500.21551, L500.22316, L500.27865, L500.24163 #### [facility] [place] [address] LIPASE Collected: 06/04/2018 Status: F Source: [facility] 2:12 PM [facility] REPOSITORY Order Comment: [place]: M TYPE CODE TESTS RESULT OUT OF RANGE REFERENCE UNITS LAB L500.38155 73-393 U/L Normal LIPASE 139 Performed By: #### L500.26276, L500.70964, L500.58449, L500.59902, L500.28675 #### [facility] [address] [id number] HCG Collected: 06/04/2018 Status: F Source: [facility] 2:12 PM [facility] REPOSITORY Order Comment: [place]: M TYPE CODE TESTS RESULT OUT OF RANGE REFERENCE UNITS LAB L500.37941 NEGATIVE Normal HCG SER NEGATIVE RESULT Performed By: #### L500.74983, L500.36771, L500.95898, L500.43277, L500.82775 #### [facility] [address] [place] [address] # [phone] EMERGENCY REPORT Observed: 04/06/2018 Status: F Source: [facility] 6:45 AM [facility] EMERGENCY ROOM REPORT NAME ACCOUNT SEX AGE ADMIT DISCHARGE PT MED. RECORD# NUMBER DATE DATE TYPE VISHNU [id number] F 32 03/30/18 03/30/18 3 REBEKA [place] [address] ROOM: ER DATE OF : 1985 DICTATING [...] the face, suspect shingles. Dictated By: Vinod Charlton DO 03/30/18 12:19 JOB #: [id number] Transcribed By: meli 03/30/18 12:41 Electronically signed by: BOBBY Charlton D.O. 04/06/18 06:44 Page 2 of 2 REBEKA MARES Emergency Room Report DOWNTIME REPORT Observed: 03/29/2018 Status: F Source: [place] 1:15 PM [facility] REPOSITORY [facility] Medical Records Department [address] [place] [address] Downtime Report MR#: [id number] Acct: [id number] Name: REBEKA MARES Miki Rep #: [id number] : 1985 32 From: Alex Barker MD PCP: Care Physician, No Primary Status: [facility] ER This patient was seen during an EMR downtime March 13, 2018 - March 20, 2018. This patient may have a combination of paper and electronic documentation or all paper documentation. All documentation is viewable within the e-chart portion of [facility] for each patient visit. EMERGENCY DEPARTMENT Observed: 03/20/2018 Status: F Source: [place] SUMMARY 6:17 PM [facility] Medical Records Department [address] [place] [address] Emergency Department Summary 03/20/18 1019 MR#: [id number] Acct: [id number] Name: REBEKA MARES Rep #: [id number] : 1985 32 From: Emperatriz Tim MD [...] left AMA This note was generated with Hitsbook dictation software. It may contain incorrect words, [...] problems, contact your Primary Care Provider. Call [employer] [facility] ([phone]) or report to the closest Emergency Room. Call 911 if necessary. 03/20/18 0213 <Electronically signed by Emperatriz Tim MD> Date Emperatriz Fernandes Signature (If Indicated): Date CC: No Primary Care Physician LACTIC ACID Collected: 03/20/2018 Status: F Source: [place] 1:40 PM [facility] REPOSITORY Order Comment: Yes/No query for Sepsis Lactate Rule Y TYPE CODE TESTS RESULT OUT OF REFERENCE UNITS RANGE LAB L503.6005 0.4-2.0 mmol/L High LACTIC ACID 2.5 Result Comment: Critical Result(s) Called at: 14:25:55 03/20/2018 by: Karen Holman Performed By: #### L503.6005 #### [facility] [address] [place], [address] CBC W/DIFF, AUTOMATED Collected: 03/20/2018 Status: F Source: [place] 10:35 AM [facility] REPOSITORY TYPE CODE TESTS RESULT OUT OF [...] Lymph 1.66 Performed By: #### L100.0100 #### [facility] [address] [place], [address] COMPREHENSIVE METABOLIC Collected: 03/20/2018 Status: F Source: [facility] 10:35 AM [facility] REPOSITORY TYPE CODE TESTS RESULT OUT OF [...] 12 Performed By: #### L500.4050, L501.2450 #### [facility] [address] [facility] [place], [address] LIPASE Collected: 03/20/2018 Status: F Source: [place] 10:35 AM [facility] REPOSITORY TYPE CODE TESTS RESULT OUT OF RANGE REFERENCE UNITS LAB L501.2450 73-393 U/L Normal LIPASE 81 Performed By: #### L500.4050, L501.2450 #### [facility] [address] [facility] [place], [address] LACTIC ACID Collected: 03/20/2018 Status: F Source: [place] 10:35 AM [facility] REPOSITORY Order Comment: Yes/No query for Sepsis Lactate Rule Y TYPE CODE TESTS RESULT OUT OF REFERENCE UNITS RANGE LAB L503.6005 0.4-2.0 mmol/L High LACTIC ACID 3.9 Result Comment: Critical Result(s) Called at: 11:26:13 03/20/2018 by: Karen Mchugh Performed By: #### L503.6005 #### [facility] [address] [place], [place], [address] ,SERUM,HCG QUALI. Collected: Status: F Source: [place] 03/20/2018 10:35 AM [facility] REPOSITORY TYPE CODE TESTS RESULT OUT OF REFERENCE UNITS RANGE LAB L700.6700 =>Qualitative mIU/mL Normal HCG Qual < 1 triggr LAB L700.7000 0-9 Nonpreg Negative Normal HCGSQUAL NEGATIVE Performed By: #### L700.6800 #### [facility] [address] 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 ALLERGIES ALLERGIES DATE TYPE / CODE NAME / CODE REACTION SEVERITY SOURCE 10/09/2018 Drug ketorolac Shortness of Unknown [place] Allergy/416 tromethamine/F0000 breath Community 504480([facility] [address]75(RXNORM) [facility] ED CT) Repository 10/09/2018 Drug ondansetron Shortness of Unknown [place] Allergy/416 HCl/[id number](RXN breath Community 685435(OM ORM) [facility] ED CT) Repository Drug TORADOL/30361303(R HIVES Moderate [place] Allergy/416 XNORM) ([facility] 850699(SN Modifier) [facility] ED CT) (Qualifier Repository Value) Drug ZOFRAN/08947775(RX HIVES Moderate Jensen Pomerene Allergy/416 NORM) ([facility] 156477(SNOM Modifier) [facility] ED CT) (Qualifier Repository Value) ENCOUNTERS ENCOUNTERS ADMIT/DISCHARGE ACCOUNT NUMBER ADMITTING ENCOUNTER LOCATION SOURCE CLASS 10/09/2018/10/11/19 [id number] [place], Ambulatory [place] ding:PCURoom Repository : [id number]: 1 10/09/2018 [id number] [place], Ambulatory BMSBuilding: [place] Phillips BMS.[facility] Repository 10/09/2018 [id number] [place], Ambulatory BMSBuilding: [place] Phillips BMS.[facility].Critical access hospital Repository 10/09/2018 [id number] [place], Ambulatory BMSBuilding: [place] Phillips BMS.[facility] Repository 09/29/2018/09/30/20 [id number] Emergency [address] ding:ED Repository 09/26/2018/09/27/20 [id number] Aniket, Ambulatory [place] ding:UT2Fqlt Repository : PN127Fkf: 1 09/26/2018 [id number] Aniket, Ambulatory BMSBuilding: Edison Heber BMS.CF.Critical access hospital Repository 09/26/2018 [id number] Ambulatory BMSBuilding: [place] BMS.CF.Critical access hospital Repository 07/27/2018/07/27/20 [id number] Ambulatory BMSBuilding: Edison 18 BMS.Critical access hospital Repository 07/17/2018/07/17/20 [id number] Emergency [address] ding:ED Repository 07/12/2018 [id number] Ambulatory BMSBuilding: [facility] Repository 07/11/2018/07/12/20 [id number] [place], Ambulatory [place] [address] ding:KV3Emup Repository : ON879Ppf: 1 07/11/2018 [id number] [place], Ambulatory BMSBuilding: [place] BMS..Critical access hospital Repository 07/11/2018 [id number] [facility], Ambulatory BMSBuilding: [place]etta BMS..Critical access hospital Repository 07/06/2018/07/09/20 [id number] SANDRA Inpatient ABuilding:PETRONA Elliott MD Encounter 6ERoom: [place] [address]Bed: [facility] Repository 07/06/2018/07/06/20 [id number] Emergency [address] ding:ED Repository 06/22/2018/06/22/20 [id number] Emergency [address] ding:ED Repository 06/15/2018/06/15/20 [id number] Ambulatory ABuilding:JAMAL Mancini [facility] Repository 06/08/2018/06/09/20 [id number] [facility] Inpatient ABuilding:PETRONA Elliott MD Encounter 6ERoom: [place] [address]Bed: A [facility] Repository 06/06/2018 [id number] Emergency [facility] Repository ng:H.ED 06/04/2018 [id number] Emergency [facility] Repository ng:H.ED 03/30/2018/03/30/20 [id number] SHAD, Emergency Buildin [address] VINOD Dial Room: ERBed: [facility] Repository 03/28/2018/03/28/20 [id number] NO, DOCTOR Ambulatory [place] [address] ON [facility] Repository 03/20/2018/03/20/20 [id number] Emergency [place] [facility] ding:ED Repository PAYERS PAYERS ENCOUNTER GUARANTOR PAYER SUBSCRIBER SOURCE 10/09/2018 REBEKA J Primary REBEKA [place] [id number] JOSEFA Insurance:MOLINAPolic DALLASDOB: [facility] svetlana CORDOBA y Number: [id number] Hospital [address]Spn: 330 [id number] Repository [phone] () Date:3983-35-71CQ [address] [address]CP: 10/09/2018 Secondary NOT GIVENUNK [place] Insurance:SELF PAY [facility] Number: Effective Repository Date:2018-10-09 10/09/2018 REBEKA J Primary REBEKA J [place] [id number] JOSEFA Insurance:MOLINAPolic DALLASDOB: [facility] svetlana CORDOBA y Number: [id number] Hospital [address]Npl: 330 [id number] Repository [phone] () Date:0665-73-47ED [facility] [address] [place] [address]LS: 10/09/2018 Secondary NOT GIVENUNK [place] Insurance:SELF PAY [facility] Number: Effective Repository Date:2018-10-09 10/09/2018 REBEKA J Primary NOT GIVENUNK [place] [id number] [place] Insurance:SELF PAY [facility] Dial [facility] [id number]: (330) Number: Effective Repository [phone] () Date:2018-10-09 10/09/2018 REBEKA J Primary REBEKA [place] [id number] JOSEFA Insurance:MOLINAPolic WESTOVERDOB: [facility] svetlana CORDOBA y Number: [id number] Hospital [address]Del: 330 [id number] Repository [phone] () Date:0860-65-09AC[address] [address]MO: 10/09/2018 Secondary NOT GIVENUNK [place] Insurance:SELF PAY [facility] Number: Effective Repository Date:2018-10-09 09/29/2018 REBEKA J Primary REBEKA Hogan [id number] JOSEFA Insurance:MOLINAPolic [place]DOB: [place] Number: [id number] Hospital [address]Hnb: 330 [id number] Repository [phone] () Date:2912-15-32ZH[address] [address]PY: 09/29/2018 Secondary NOT GIVENUNK [place] Insurance:SELF PAY [facility] Number: Effective Repository Date:2018-09-29 09/26/2018 REBEKA J Primary REBEKA Hogan [id number] JOSEFA Insurance:MOLINAPolic [place]DOB: [place] Number: [id number] Hospital [address]Iqw: [phone]) [id number] Repository [phone] () Date:0676-16-68MA [address] [address]GO: 09/26/2018 Secondary NOT GIVENUNK [place] Insurance:SELF PAY [facility] Number: Effective Repository Date:2018-09-26 09/26/2018 REBEKA J Primary REBEKA Hogan [id number] [place] Insurance:MOLINAPolic [place]DOB: [place] Number: [id number] Hospital [address]Ddc: 330 [id number] Repository [phone] () Date:0918-08-97ID[address] [address]BA: 09/26/2018 Secondary NOT GIVENUNK [place] Insurance:SELF PAY [facility] Number: Effective Repository Date:2018-09-26 09/26/2018 REBEKA J Primary REBEKA Farroster [id number] JOSEFA Insurance:MOLINAPolic [place]ASDOB: [place] Number: [id number] Hospital [address]Pwa: [phone]) [id number] Repository [phone] () Date:6174-61-00XA[address] [address]QX: 09/26/2018 Secondary NOT GIVENUNK [place] Insurance:SELF PAY [facility] Number: Effective Repository Date:2018-09-26 07/27/2018 REBEKA [place] Primary REBEKA Hogan [id number] JOSEFA Insurance:SAMANIEGO VISHNUDOB: Community [facility] CenterPolicy Number: [id number] Hospital [address]Ufk: (513) [id number] Repository [phone] () Date:1980-71-48AB [address] [address]QU: 07/27/2018 Secondary NOT GIVENUNK [place] Insurance:SELF PAY [facility] Number: Effective Repository Date:2018-07-27 07/17/2018 REBEKA [place] Primary REBEKA Hogan [id number] JOSEFA Insurance:[facility]: [facility] Number: [id number] Hospital 12[address]Fgt: (498) [id number] Repository [phone] () Date:3534-99-46EY[address] [address]LO: 07/17/2018 Secondary NOT GIVENUNK [place] Insurance:SELF PAY [facility] Number: Effective Repository Date:2018-07-17 07/12/2018 REBEKA [place] Primary REBEKA Hogan [id number] JOSEFA Insurance:SAMANIEGO WESTOVERDOB: [facility] HospitalJayroArch[facility] HospitalPolic Number: [id number] Hospital [address]Zji: 330 [id number] Repository [phone] () Date:4360-29-64ER[address] [address]WU: 07/12/2018 Secondary NOT GIVENUNK [place] Insurance:SELF PAY [facility] Number: Effective Repository Date:2018-07-12 07/11/2018 REBEKA [place] Primary REBEKA Hogan [id number] JOSEFA Insurance:[facility]ITALD[facility]: [facility] Number: [id number] Hospital 16[address]Vft: (548) [id number] Repository [phone] () Date:9060-25-75YU[address] [address]JM: 07/11/2018 Secondary NOT GIVENUNK [place] Insurance:SELF PAY [facility] Number: Effective Repository Date:2018-07-11 07/11/2018 REBEKA [place] Primary REBEKA [place] [id number] [place]BANA Insurance:[facility]: [facility] Number: [id number] Hospital [address]Pvf: ([phone]) [id number] Repository [phone] () Date:8486-43-75DE[address] [address]LB: 07/11/2018 Secondary NOT GIVENUNK [place] Insurance:SELF PAY [facility] Number: Effective Repository Date:2018-07-11 07/11/2018 REBEKA Living[place] Primary REBEKA [place] [address] Insurance:[facility]: [facility] Number: [id number] Hospital 65[address]Uhl: (455) [id number] Repository [phone] () Date:8374-23-59AO[address] [address]ER: 07/11/2018 Secondary NOT GIVENUNK [place] Insurance:SELF PAY [facility] Number: Effective Repository Date:2018-07-11 2018 REBEKA [place] Primary REBEKA Living[place] [facility]: Insurance:MEDICAID OF DALLASDOB: [facility] [id number] [facility] Number: [id number] Repository URBANA [place], [id number] [address] [place] [address]Cly: Date:2018 - [place]ERY[place] MD [id number] 459[address]Oxt: ([phone]) () Name:[facility] [id number] 7965AbSVETLANA ()Tel: [phone]: () [phone] REBEKA Hogan [id number] JOSEFA Insurance:MEDICAIDPol [facility]: [facility] [place] Number: [id number] Hospital [address]Afb: [phone]) [id number] Repository [phone] (HP) Date:2018 2018 Secondary NOT GIVENUNK [place] Insurance:SELF PAY [facility] Number: Effective Repository Date:2018 06/22/2018 REBEKA J Primary REBEKA [place] [facility]5733 JOSEFA Insurance:[facility]: [facility] [place] Number: [id number] Hospital [address]Slt: 330 [id number] Repository [phone] (HP) Date:2018-06-22 06/22/2018 Secondary NOT GIVENUNK [place] Insurance:SELF PAY [facility] Number: Effective Repository Date:2018-06-22 06/15/2018 REBEKA J Primary REBEKA [facility]: Insurance:MEDICAID OF DALLASDOB: [facility] [id number] [facility] Number: [id number] Repository [place], [id number] [address] [place] [address]Rfj: Date:2018-06-15 - [place] 7234-19-74Onen [address]Tih: [phone]) () Name:MILENA Riggs 4041 [address]Ab MD ()Tel: [phone]: () [phone] 06/08/2018 REBEKA J Primary REBKEA [facility]: Insurance:MEDICAID OF DALLASDOB: [facility] [id number] [place] Number: [id number] Repository [place], [id number] [address] [place] [address]Ket: Date:2018-06-08 - [place] 7521-13-19Ctkg [address]Ghu: ([phone]) () Name:[facility] Keely 6920 79[address]Ab MD ()Tel: [phone]: () [phone] 06/06/2018 REBEKA S Primary [facility]2110 Insurance:MED[place]ID OF [place] [address] [place]: Repository [place] [id number] [address]Zdh: (330) Date:[phone] (HP) [facility]645[facility] [address]HW: 06/04/2018 REBEKA S Primary [place] [id number] Insurance:MEDICAID OF [place]UNK [place] [address] [place] Number: Repository svetlana [place] [id number] [address]Hup: (330) Date:[phone] (HP) 2645COLSAINT [facility] [address]ZA: 03/20/2018 REBEKA Miki Primary NOT [place] [id number] [place]BA[place] Insurance:SELF PAY [facility] [address]Hvt: (330) Number: Effective Repository [phone] (HP) Date:2018-03-20
== END 2018-09-27 16:15 | disposition home or self-care (01) ==
LOC: ED 13:49 → SDC 13:52 → MS2 13:53 → SDC 17:41
PROVIDERS: Anesthesiology; Admitting Provider Surgery; Emergency Provider Emergency Medicine; Visit Provider Surgery
PROC: 0WQF4ZZ Repair Abdominal Wall, Percutaneous Endoscopic Approach (ICD-10-PCS; CPT 49656; principal; 2018-09-26 09:50)
DX: K43.0 Incisional hernia with obstruction, without gangrene (principal); K21.9 Gastro-esophageal reflux disease without esophagitis; Z87.891 Personal history of nicotine dependence
CPT/HCPCS: 49656; 36415; 74176; 80048; 81025; 85025; 96361; 96374; 96375; 96376; 99218; 99284; J7030; A4216; G0378

== ENCOUNTER 2018-09-29 20:02 | Emergency (ER) | payer MEDICAID, SELFPAY ==
[2018-09-26 18:36] VITALS: BMI 47.1
[2018-09-29 20:03] VITALS: PULSE 121; RESP 22; TEMP 36.4; O2SAT 98; BMI 52.0
[2018-09-29 20:26] VITALS: BP 157/89
--- NOTE | 2018-09-29 20:49 | ED.VISSUMM ---
- ER Visit Summary Date of Service: 09/29/18 Chief Complaint: Abdominal pain, vomiting History of Present Illness: The patient is a 33 F who had a hernia repair with mesh placement on September 26. She was discharged home on the . She presents tonight with nausea and vomiting along with cough and increased pain. She is been unable to keep her pain meds down. She is passing gas. Patient did have a total of 4 ventral hernia repairs. She does report having problems after surgery with similar symptoms. Physical Examination: Blood pressure is 157/89, temperature 97.6, heart rate 121, respiratory rate 22, pulse ox 98% on room air. Head neck examination is grossly unremarkable. Heart is tachycardic and regular. Lungs sounds with expiratory wheezes. Abdomen is soft with upper abdominal tenderness. No guarding or rebound. Bowel sounds are present. Surgical sites are clean. Test Results: CBC and chemistry studies are unremarkable. LFTs normal. Emergency Department Course and Treatment: Patient was initially given morphine, Phenergan, and IV fluids. As advised by nursing staff sometime later that the patient vomited up some soda that she had drank at home prior to arrival. She is given a dose of Dilaudid, Reglan, and Benadryl. At 23:30 patient is complaining of burning sensation across her upper abdomen. She states this does not feel like reflux or stomach acid. Abdomen is soft with appropriate postop tenderness. Lung sounds are clear. Patient received an additional 0.[address] scan with IV contrast only will be obtained. Patient's heart rate is significantly improved and clinically patient looks improved. CT with IV contrast shows postoperative inflammatory changes in the midline anterior abdominal wall with diffuse subcu gas. No fluid collection. Bowel unremarkable. At this time patient feels significantly improved. She has been taking Phenergan at home, but gets better nausea relief with the Reglan and Benadryl. She will be given these for home. Patient had been trying to take her Percocet at home but has been vomiting it back up. She is concerned that she will not have enough pills to control her symptoms. She will be given a new prescription, but advised to try to make the pills she has at home last as long as possible. If the pharmacy gives her a hard time about filling a new prescription, I have asked her to have the pharmacist call us so we can verify documentation of the patient had lost multiple of her medications secondary to vomiting. Treatment Plan: [] Disposition: Discharge Impression: Postop pain and nausea, improved This note was generated with [employer] dictation software. It may contain incorrect words, spelling, and punctuation that were not noted in review of the chart prior to signing ED Disposition - Plan for ED Patient: Chief Complaint: Abd Pain Referrals: Care Physician,No Primary [Primary Care Provider] -
[2018-09-29] MEDS: Morphine 4 MG/ML Syringe IV (21:25)
[2018-09-29] MEDS: 0.9% Normal Saline 1,000 ML 150 ML IV (21:25)
[2018-09-29] MEDS: proMETHazine 25 MG/ML Syringe 12.5 MG IV (21:25)
[2018-09-29 21:40] LABS: Absolute Lymphocyte Count 1.99 X10^3/ul (0.83-4.51); Absolute Neutrophil Count 6.5 X10^3/uL (2.0-7.7); Basophil# 0.01 X10^3/uL; Basophil% 0.1 % (0-1); Eosinophil# 0.24 X10^3/uL; Eosinophils% 2.6 % (0-5); Hematocrit 39.7 % (37-47); Hemoglobin 13.2 g/dl (12.0-15.0); Lymphocyte # 1.99 X10^3/ul (4.0); Lymphocyte % 21.4 % (19-41); Mean Corp Hgb Conc 33.2 g/gl (32-36); Mean Corpuscular Hgb 31.2 pg (27.0-32.0); Mean Corpuscular Volume 93.9 fL (81-99); Monocyte# 0.57 X10^3/uL; Monocyte% 6.1 % (0-10); Neutrophil # 6.45 X10^3/uL (2.7-7.7); Neutrophil % 69.3 % (47-70); POSITIVE COUNT NO; POSITIVE DIFFERENTIAL NO; POSITIVE MORPHOLOGY NO; Platelet Count 240 K/mm3 (150-450); RBC Distribution Width CV 12.7 % (11.6-14.6); RBC Distribution Width SD 42.6 fl (35.1-43.9); Red Blood Count 4.23 M/mm3 (4.2-5.4); White Blood Count 9.3 K/mm3 (4.4-11.0)
[2018-09-29 21:59] LABS: AST(SGOT) 16 U/L (15-37); Alanine Aminotransfer ALT/SGPT 28 U/L (13-56); Albumin, Serum 3.2 g/dL (3.2-5.0); Alkaline Phosphatase 59 U/L (45-117); Anion Gap 9 (5-15); BUN 8 mg/dL (7-18); BUN/Creat Ratio 16.5 RATIO (10-20); Calcium,Total 8.5 mg/dL (8.5-10.1); Chloride 105 mmol/L (98-107); Creatinine, Serum 0.48 mg/dL (0.55-1.02); EST Glomerular Filtration Rate 157 mL/min (>60); Est Glom Filt Rate - Afr Amer 190 mL/min (>60); Globulin 3.3 g/dL (2.2-4.2); Glucose 107 mg/dL (74-106); Potassium 3.6 mmol/L (3.5-5.1); Protein, Total 6.5 g/dL (6.4-8.2); Sodium Level 140 mmol/L (136-145)
[2018-09-29 22:11] VITALS: PULSE 91; RESP 16; O2SAT 98
[2018-09-29] MEDS: DiphenhydrAMINE 50 MG/ML Syringe 12.5 MG IV (22:12)
[2018-09-29] MEDS: HYDROmorphone 0.5 MG/0.5 ML SYRINGE IV (22:13)
[2018-09-29] MEDS: Metoclopramide 10 MG/2 ML Vial 5 MG IV (22:13)
--- NOTE | 2018-09-29 23:36 | CT_ITS ---
STUDY: CT ABDOMEN AND PELVIS WITH CONTRAST REASON FOR EXAM: Female, 33 years old. Abdominal pain status post hernia repair RADIATION DOSAGE (If Supplied By Facility): CTDIvol = ( 17.07 ) mGy, DLP = ( 1333.95 ) mGycm TECHNIQUE: Transaxial images were obtained from the dome of the diaphragm to the symphysis pubis without oral contrast. 100 ml of Isovue 300 contrast was administered. Sagittal and coronal images were reconstructed. Individualized dose optimization techniques were used for this CT. COMPARISON: None. FINDINGS: Bibasilar atelectasis versus scar formation. The visualized portions of the heart are within normal limits. Normal liver. Normal gallbladder and extrahepatic biliary system. Normal spleen. Normal pancreas. Normal bilateral adrenal glands. Hypoattenuated exophytic lesion off the lateral midpole of the left kidney which measures hyperdense to water. Normal left kidney. Normal visualized stomach. Normal small intestine. Normal colon. The appendix is not visualized. Normal abdominal aorta. Normal inferior vena cava. Normal retroperitoneum. Normal urinary bladder. Reproductive organs are unremarkable with the exception of bilateral fallopian clips. Subcutaneous gas throughout the left anterior abdominal pain. Inflammatory change in the midline abdominal wall. Normal osseous structures. CT/Abdomen/Pelvis W IV Cont ONLY IMPRESSION: 1. Postoperative inflammatory change in the midline anterior abdominal wall with diffuse subcutaneous gas but with no evidence of fluid collection. 2. Hypoattenuated exophytic lateral midpole of the left kidney which does not meet strict CT criteria for simple cyst. Dedicated MR imaging is recommended for further characterization to rule out possible solid neoplasm. Electronically Signed: Michael Stevenson MD at 0:32 EST Tel , Service support ,
[2018-09-29] MEDS: HYDROmorphone 1 MG/ML Syringe 0.5 MG IV (23:42)
[2018-09-30 00:03] VITALS: BP 136/74; PULSE 88; RESP 16; O2SAT 98
--- NOTE | 2018-09-30 00:49 | ED.DEP ---
ED Disposition - Plan for ED Patient: Disposition: Home or Assisted Living Chief Complaint: Abd Pain Instructions: ED Post Op Pain Prescriptions: DiphenhydrAMINE [Benadryl] 25 mg PO Q6H PRN PRN #14 capsule PRN Reason: Nausea Oxycodone HCl/Acetaminophen [Percocet 5/325] 1 tablet PO Q6H PRN PRN 3 Days #12 tablet PRN Reason: Pain Metoclopramide [Reglan] 10 mg PO 4X/DAY PRN #20 tablet PRN Reason: Nausea Referrals: Heber Marcial MD [STAFF PHYSICIAN] - 1-2 Weeks
[2018-09-30 00:58] VITALS: BP 139/75; PULSE 92; RESP 16; O2SAT 99
[2018-09-30] MEDS: DiphenhydrAMINE 25 MG Capsule PO (01:03)
== END 2018-09-30 01:12 | disposition home or self-care (01) ==
PROVIDERS: Emergency Provider Emergency Medicine
DX: R10.9 Unspecified abdominal pain (principal); G89.18 Other acute postprocedural pain; R11.2 Nausea with vomiting, unspecified; R05 Cough; K21.9 Gastro-esophageal reflux disease without esophagitis; Z87.891 Personal history of nicotine dependence
CPT/HCPCS: 74177; 80048; 80076; 85025; 96361; 96374; 96375; 96376; 99285; J7030; A4216

== ENCOUNTER 2018-10-09 17:44 | Observation (INO) | payer MEDICAID, SELFPAY ==
[2018-10-09 17:45] VITALS: BP 156/134; PULSE 145; RESP 26; TEMP 37.2; O2SAT 97; BMI 47.0
--- NOTE | 2018-10-09 18:39 | CT_ITS ---
STUDY: CT ABDOMEN AND PELVIS WITH CONTRAST REASON FOR EXAM: Female, 33 years old. Mid abdominal pain, recurrent ventral hernia with incarceration RADIATION DOSAGE (If Supplied By Facility): CTDIvol = ( 18.74 ) mGy, DLP = ( 1371.88 ) mGycm TECHNIQUE: Transaxial images were obtained from the dome of the diaphragm to the symphysis pubis without oral contrast. 100ml ml of Isovue 300 contrast was administered. Sagittal and coronal images were reconstructed. Individualized dose optimization techniques were used for this CT. COMPARISON: Previous recent study of 09/29/2018 FINDINGS: The visualized lung bases are unremarkable. The visualized portions of the heart are within normal limits. Normal liver. There are surgical clips in the gallbladder fossa consistent with a prior cholecystectomy. Normal spleen. Normal pancreas. Normal bilateral adrenal glands. There is a 1.2 cm hypodense nodule of the right kidney indeterminate for solid versus cystic structure. Normal left kidney. Normal visualized stomach. Normal small intestine. Normal colon. There is non-visualization of the appendix. Normal abdominal aorta. Normal inferior vena cava. Normal retroperitoneum. Normal urinary bladder. Uterus and adnexal structures are unremarkable. Bilateral tubal ligation clips are present. There are findings consistent with post anterior abdominal wall hernia repair changes. There is a well-defined sclerotic focus of the T9 vertebral body. CT/Abdomen/Pelvis WITH Contrast IMPRESSION: 1. Status post cholecystectomy. 2. 1.2 cm hypodense nodule of the right kidney indeterminate for solid versus cystic structure. Nonemergent ultrasonographic correlation is recommended. 3. Bilateral tubal ligation clips are present. 4. There are findings consistent with post anterior abdominal wall hernia repair changes. 5. There is no evidence of free intra-abdominal or intrapelvic air, fluid, or inflammatory process. 6. There is a well-defined sclerotic focus of the T9 vertebral body most likely representing benign process such as bone island. Electronically Signed: Payam Tovar MD at 21:02 EST , Service support ,
--- NOTE | 2018-10-09 18:45 | ED.DCSUM_ITS ---
- ER Visit Summary Date of Service: 10/09/18 Chief Complaint: Abdominal pain History of Present Illness: The patient is a 33 F presenting with abdominal pain. She had surgery September [address] Marcial for ventral hernia repair. She states over the past couple of days the pain has worsened. She has had chills with no fever. She has nausea with no vomiting. She has been taking ibuprofen at home today. She states the pain is increased. She denies chest pain or shortness of breath. She denies other complaints. Physical Examination: Vitals are stable. Heart rate 145. Patient is afebrile. Alert no acute distress. HEENT exam is unremarkable. Neck is supple. Lungs are clear and equal bilaterally. Heart is regular and tachycardic Abdomen is soft diffuse tenderness with no rebound or guarding, incisions clean dry intact Extremities are unremarkable. Skin is warm and dry. No focal neurologic deficit. Remainder of exam is unremarkable. Emergency Department Course and Treatment: Patient given morphine, Phenergan IV. CBC shows white count 13.9. Chemistries show potassium 3.2, CO2 18, glucose 124. Liver lipase are normal. HCG negative. She was given IV fluids. Repeat BMP shows CO2 16. CT abdomen pelvis shows status post cholecystectomy. 1.2 cm hypodense nodule of the right kidney indeterminate for solid versus cystic structure. Nonemergent ultrasonographic correlation is recommended. Bilateral tubal ligation clips are present. There are findings consistent with post anterior abdominal wall hernia repair changes. There is no evidence of free intra-abdominal or intrapelvic air, fluid, or inflammatory process. There is a well-defined sclerotic focus of the T9 vertebral body most likely representing benign process such as bone island. Patient remains tachycardic with heart rate in the 120s after 2 L of IV fluids. She continues to deny chest pain or shortness of breath. Her pulse ox is 97% on room air. She is given multiple repeat doses of pain medication. Lactic acid is pending. Discussed with the hospitalist for observation. Disposition: Observation Impression: Abdominal pain This note was generated with [employer] dictation software. It may contain incorrect words, spelling, and punctuation that were not noted in review of the chart prior to signing ED Disposition - Plan for ED Patient: Chief Complaint: Abd Pain Referrals: Care Physician,No Primary [Primary Care Provider] -
[2018-10-09] MEDS: Morphine 4 MG/ML Syringe IV ×2 (18:47→21:02)
[2018-10-09] MEDS: 0.9% Normal Saline 1,000 ML 1000 ML IV (18:48)
[2018-10-09] MEDS: proMETHazine 25 MG/ML Syringe 6.25 MG IV ×2 (18:48→21:02)
[2018-10-09 18:50] VITALS: BP 163/57; PULSE 132; RESP 24; O2SAT 97
[2018-10-09 18:51] LABS: Absolute Lymphocyte Count 3.46 X10^3/ul (0.83-4.51); Basophil# 0.05 X10^3/uL; Basophil% 0.4 % (0-1); Eosinophil# 0.41 X10^3/uL; Eosinophils% 2.9 % (0-5); Hematocrit 43.2 % (37-47); Hemoglobin 14.8 g/dl (12.0-15.0); Lymphocyte # 3.46 X10^3/ul (4.0); Lymphocyte % 24.8 % (19-41); Mean Corp Hgb Conc 34.3 g/gl (32-36); Mean Corpuscular Hgb 31.5 pg (27.0-32.0); Mean Corpuscular Volume 91.9 fL (81-99); Mean Platelet Vol. 9.3 fl (6.2-12.0); Monocyte# 0.86 X10^3/uL; Monocyte% 6.2 % (0-10); Neutrophil % 64.6 % (47-70); Platelet Count 391 K/mm3 (150-450); RBC Distribution Width CV 12.6 % (11.6-14.6); RBC Distribution Width SD 41.8 fl (35.1-43.9); White Blood Count 13.9 K/mm3 (4.4-11.0)
[2018-10-09 18:52] LABS: POSITIVE COUNT NO; POSITIVE DIFFERENTIAL NO; POSITIVE MORPHOLOGY NO
[2018-10-09 19:03] LABS: AST(SGOT) 16 U/L (15-37); Alanine Aminotransfer ALT/SGPT 28 U/L (13-56); Albumin, Serum 4.1 g/dL (3.2-5.0); Alkaline Phosphatase 60 U/L (45-117); Anion Gap 16 (5-15); BUN 10 mg/dL (7-18); BUN/Creat Ratio 12.9 RATIO (10-20); Bilirubin, Direct 0.08 mg/dL (0.00-0.30); Calcium,Total 9.5 mg/dL (8.5-10.1); Chloride 104 mmol/L (98-107); Creatinine, Serum 0.78 mg/dL (0.55-1.02); EST Glomerular Filtration Rate 91 mL/min (>60); Est Glom Filt Rate - Afr Amer 110 mL/min (>60); Estimated Creatinine Clearance 92.31 ml/min; Globulin 3.8 g/dL (2.2-4.2); Glucose 124 mg/dL (74-106); Lipase 117 U/L (73-393); Potassium 3.2 mmol/L (3.5-5.1); Protein, Total 7.9 g/dL (6.4-8.2); Sodium Level 138 mmol/L (136-145)
[2018-10-09 19:10] VITALS: PULSE 87; RESP 20; TEMP 36.6; O2SAT 98
[2018-10-09 19:48] LABS: Pregnancy, Serum, hCG Quali. NEGATIVE Negative (0-9 Nonpreg)
[2018-10-09] MEDS: 0.9% Normal Saline 1,000 ML 999 ML IV (20:49)
[2018-10-09 21:05] VITALS: BP 132/71; PULSE 121; RESP 22; O2SAT 96
[2018-10-09 22:30] LABS: Anion Gap 17 (5-15); BUN 8 mg/dL (7-18); BUN/Creat Ratio 10.9 RATIO (10-20); Calcium,Total 8.3 mg/dL (8.5-10.1); Chloride 107 mmol/L (98-107); Creatinine, Serum 0.73 mg/dL (0.55-1.02); EST Glomerular Filtration Rate 97 mL/min (>60); Est Glom Filt Rate - Afr Amer 117 mL/min (>60); Estimated Creatinine Clearance 98.63 ml/min; Glucose 120 mg/dL (74-106); Potassium 3.5 mmol/L (3.5-5.1); Sodium Level 140 mmol/L (136-145)
--- NOTE | 2018-10-09 22:46 | HP.PCM_ITS ---
Problem List (1) Intractable abdominal pain Status: Acute History of Present Illness Date of Admission: 11/09/18 Chief Complaint: Abdominal pain The patient is a 33 year old F with a significant history of anxiety; appendectomy; cholecystectomy ; six hernia repair with the 6 hernia repair surgery done on September 26 2018 who presented to the emergency department because of progressively worsening abdominal pain that started after her recent hernia repair with mesh. Her pain is located at the left upper quadrant where her recent surgery was done; and at her right lower abdominal fold. Her pain increases with moving; and it improves with not moving. Her pain at the right upper quadrant is sharp; positive pain at her right abdominal fold is 'pulling'. She tried ibuprofen without any real relief. Associated with her symptoms is nausea, diaphoresis and chills. She reports a subjective fever at home. Although typically her bowels moved at least 1-2 times a day she has not had a bowel movement for the last 2 days. And she was afraid to take any Colace because she thought it might worsen her abdominal symptoms. Her pain is continues and it can get as worse as 10 out of 10. At the the emergency department her potassium was 3.2 but it corrected to 3.5. She had leukocytosis of 13.9 and bandemia. She had lactic acid of 7.3; and an anion gap which was 16-17. Her respiratory rate initially was from 22-26. Her heart rate was from 113-145. She had elevated ketones in her urine. Her Glucose on BMP was 120 -124 At the emergency department patient received 2500 normal saline IV bolus. She received Phenergan; morphine and Dilaudid. CT scan of the abdomen did not show any acute disease. Emergency department doctor discussed case with Dr. Geiger, General Surgeon who also reviewed the CT scan. The Emergency Department doctor reported that Dr. Geiger who also reviewed the CT of the abdomen did not see any acute pathology on the CT. Past Medical History Past Medical History (Chronic Problems): Chronic Problems (Last Reviewed 10/10/18 @ 02:33 by Alan Trores MD) History of anxiety disorder (Chronic) GERD (gastroesophageal reflux disease) (Chronic) Partial small bowel obstruction (Chronic) Medical History: Medical History (Last Reviewed 10/10/18 @ 02:33 by Alan Torres MD) History of anxiety disorder (Chronic) Z86.59 GERD (gastroesophageal reflux disease) (Chronic) K21.9 Partial small bowel obstruction (Chronic) Vomiting (Resolved) R11.10 Allergies ketorolac tromethamine [From Toradol] Allergy (Verified 10/09/18 17:45) Shortness of breath ondansetron HCl [From Zofran] Allergy (Verified 10/09/18 17:45) Shortness of breath Home Medications: Ambulatory Orders Medication Instructions Recorded NK 10/09/18 Surgical History: Surgical History (Last Reviewed 10/10/18 @ 02:33 by Alan Torres MD) Recurrent ventral hernia with incarceration (Resolved) K43.0 Surgical History: appendectomy, cholecystectomy, herniorrhaphy - x6. Patient reported that a mass was removed in her left lower quadrant. She reported that after she had an infection at the site where the mass was removed for which reason she had another surgery and then a wound VAC was placed., - - 3 sections, some type of bilateral reflux surgery dealing with the small bowel. 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 Denies: Weight Change HEENT: Denies: Head Aches, Sinus Congestion, Sinus Drainage Cardiovascular: Denies: Chest Pain, Palpitations Respiratory: Denies: Cough, Shortness of breath at rest, Sputum production Gastrointestinal: Reports: Abdominal Pain, Constipation, Nausea. Denies: Vomiting Genitourinary: Denies: Dysuria Musculoskeletal: Denies: Joint Pain, Joint Tenderness Skin: Denies: Rash, Wounds Neurological: Denies: Numbness, Tingling, Focal weakness Psychiatric: Denies: Anxiety, Depression, Homicidal Ideations, Suicidal Ideations Hematologic/ Lymphatic: Denies: Easy Bruising, Easy Bleeding VTE Information - Inpt Only VTE Present on Admission: No VTE Mechan Device Prophylaxis: None VTE Pharm Prophylaxis ordered?: Yes Patient Problems: Active and Suspected Problems (Last Reviewed 10/10/18 @ 02:33 by Alan Torres MD) Intractable abdominal pain (Acute) - Physical Exam General: Alert, Oriented x3, Cooperative HEENT: Atraumatic, PERRLA, EOMI, Normocephalic Neck: Supple, No JVD, Negative Carotid Bruits Lungs: Clear to auscultation, Normal air movement, Tachypneic Cardiovascular: No murmurs, Tachycardic Abdomen: Bowel Sounds Present, Soft, Tender - Multiple areas of tenderness of the abdomen Extremities: No edema, Capillary Refill Less than 3 Seconds Skin: No rashes, No breakdown Musculoskeletal: No Tenderness to Palpation of Joints or Extremities Neurological: Neuro grossly intact Psych/Mental Status: Normal Affect, Appropriate Vital Signs Temp Pulse Resp BP Pulse Ox 97.8 F 121 H 22 H 132/71 H 96 10/09/18 19:10 10/09/18 21:05 10/09/18 21:05 10/09/18 21:05 10/09/18 21:05 Oxygen Delivery Method Room Air Weight: 128.367 kg Body Mass Index (BMI) 47.0 Finger Stick Blood Glucose 109 Laboratory Tests Past 24 Hrs 10/09/18 10/09/18 10/09/18 17:55 17:55 17:55 WBC 13.9 H RBC 4.70 Hgb 14.8 Hct 43.2 MCV 91.9 MCH 31.5 MCHC 34.3 RDW 12.6 RDW Differential 41.8 Plt Count 391 MPV 9.3 Immature Gran % (Auto) 1.100 H Neut % (Auto) 64.6 Lymph % (Auto) 24.8 [place] % (Auto) 6.2 Eos % (Auto) 2.9 Baso % (Auto) 0.4 Absolute Neuts (auto) 9.0 H Absolute Lymphs (auto) 3.46 Total Counted Not Reportable Sodium 138 Potassium 3.2 L Chloride 104 Carbon Dioxide 18.0 L Anion Gap 16 H BUN 10 Creatinine 0.78 Estim Creat Clear Calc 92.31 Est GFR (MDRD) Af Amer 110 Est GFR (MDRD) Non-Af 91 BUN/Creatinine Ratio 12.9 Glucose 124 H Lactic Acid Calcium 9.5 Total Bilirubin 0.30 Direct Bilirubin 0.08 AST 16 ALT 28 Alkaline Phosphatase 60 Total Protein 7.9 Albumin 4.1 Globulin 3.8 Lipase 117 Serum , Qual NEGATIVE 10/09/18 10/09/18 22:08 22:40 WBC RBC Hgb Hct MCV MCH MCHC RDW RDW Differential Plt Count MPV Immature Gran % (Auto) Neut % (Auto) Lymph % (Auto) [place] % (Auto) Eos % (Auto) Baso % (Auto) Absolute Neuts (auto) Absolute Lymphs (auto) Total Counted Sodium 140 Potassium 3.5 Chloride 107 Carbon Dioxide 16.0 L Anion Gap 17 H BUN 8 Creatinine 0.73 Estim Creat Clear Calc 98.63 Est GFR (MDRD) Af Amer 117 Est GFR (MDRD) Non-Af 97 BUN/Creatinine Ratio 10.9 Glucose 120 H Lactic Acid Pending Calcium 8.3 L Total Bilirubin Direct Bilirubin AST ALT Alkaline Phosphatase Total Protein Albumin Globulin Lipase Serum , Qual Assessment/Plan All Active Problems (Last Reviewed 10/10/18 @ 02:33 by Alan Torres MD) Intractable abdominal pain (Acute) Vomiting (Resolved) Recurrent ventral hernia with incarceration (Resolved) The patient is a 33 year old F with a significant history of anxiety; appendectomy; cholecystectomy ; six hernia repair with a 6 hernia repair surgery done on September 26 2018 who presented to the emergency department because of progressively worsening abdominal pain that started after hernia repair with mesh; and with nausea; chills; diaphoresis; tachypnea; tachycardia; leukocytosis with bandemia and lactic acidosis. Intractable abdominal pain. The etiology of her intractable abdominal pain is unclear at this time. However because she recently had a mesh we will put patient on antibiotics of Flagyl and ciprofloxacin. Pain Medication: Patient reports that in the past she had abdominal upset with morphine. Dilaudid as needed ordered. Antiemetics: Reportedly patient has an allergy of shortness of breath with Zofran. Received Phenergan at emergency department. Phenergan as needed continued. Patient has lactic acidosis of 7.3. The etiology of her lactic acidosis is not clear at this time. Patient received IV fluids at emergency department. Lactated Ringer's with potassium for maintenance infusion ordered. If her abdominal pain continue consider a CTA of her abdomen. Consider discussing with [facility] who did her surgery. Her surgery was on September 26, [address] Heber Marcial. Review of aicha rds show that she has an appointment on 10/12/[address] Heber Marcial. Infectious workup: Urinalysis was unremarkable; chest x-ray ordered at the emergency department was unremarkable. Blood cultures x 2 was ordered. Trend lactic acid Senokot- S for constipation Trend CBC and BMP. Elevated blood pressure without diagnosis of hypertension. Highest systolic blood pressure was 163; and higher level blood pressure was 134. She denies having elevated blood pressure except at the hospital setting and she attributes this to pain. Trend blood pressures. Labetalol as needed for systolic blood pressure more than 170. DVT Prophylaxis Lovenox ordered Code Visit Inpatient E&M: 67891 Init Hosp L3
[2018-10-09 23:33] VITALS: BP 105/72; PULSE 113; RESP 18; O2SAT 95
[2018-10-09] MEDS: HYDROmorphone 1 MG/ML Syringe IV (23:33)
[2018-10-09 23:35] VITALS: BP 105/72; PULSE 113; RESP 18; TEMP 36.9; O2SAT 95
[2018-10-09 23:35] LABS: Lactic Acid 7.3 mmol/L (0.4-2.0)
[2018-10-09 23:56] LABS: Mucous, Urine 0 SEEN /hpf (<or=2+)
[2018-10-10] VITALS (15 sets, daily range): BP systolic 102–139; BP diastolic 49–82; PULSE 77–102; RESP 16–19; TEMP 36.5–36.8; O2SAT 93–100; BMI 50.5; BMI 50.6
[2018-10-10 00:07] LABS: Color, Urine Yellow (Yellow); Glucose, Dipstick NEGATIVE (Normal); Ketone-Dipstick 15 mg/dl (Negative); Urine Bilirubin Dipstick Negative (Negative); Urine Clarity Sl Cldy (Clear)
[2018-10-10 00:08] LABS: Leukocyte Esterase-Dipstick Negative /ul (Negative); Nitrite-Dipstick Negative (Negative); Occult Blood-Urine Negative /ul (Negative); Protein-Dipstick 15 mg/dl (Negative); Urine Urobilinogen Normal (Normal)
--- NOTE | 2018-10-10 00:23 | RAD_ITS ---
STUDY: X-RAY CHEST REASON FOR EXAM: Female, 33 years old. Cough. TECHNIQUE: AP portable chest. COMPARISON: June 22, 2018. FINDINGS: The lungs are clear and expanded. There is no demonstrated pleural abnormality. Normal size heart. Normal mediastinum and denisse. Normal visualized pulmonary arteries. Normal visualized aortic arch and descending thoracic aorta. Normal visualized thoracic spine. Normal visualized ribs, clavicles, and shoulders. There is no demonstrated abnormality of the visualized soft tissue structures of the upper abdomen. RAD/Chest 1 View (Portable) IMPRESSION: Normal x-ray examination of the chest. Electronically Signed: Wili Goodman MD at 2:40 EST , Service support ,
[2018-10-10 00:44] LABS: Bacteria 1+ /hpf (None Seen); Red Blood Cells-Urine 0-5 SEEN /hpf (0-5); Squamous Epithelial Cells - UA 0-5 SEEN /hpf (5-10); White Blood Cells 0-5 SEEN /hpf (0-5)
[2018-10-10 02:43] LABS: Reflex Lactate? Y
[2018-10-10] MEDS: 0.9% NaCl Peripheral Flush Adult/Peds IV ×7 (03:00→14:10)
[2018-10-10] MEDS: Ciprofloxacin 400 MG/200 ML BAG 200 MG IV (03:06)
[2018-10-10 03:19] LABS: Lactic Acid 4.6 mmol/L (0.4-2.0)
[2018-10-10] MEDS: HYDROmorphone 1 MG/ML Syringe IV ×4 (04:45→14:08)
[2018-10-10 07:45] LABS: International Normalized Ratio 1.1; Prothrombin Time (Protime)PT. 13.9 SECONDS (11.7-14.9)
[2018-10-10] MEDS: proMETHazine 25 MG/ML Syringe 6.25 MG IV (07:54)
[2018-10-10 07:56] LABS: Anion Gap 11 (5-15); BUN 6 mg/dL (7-18); BUN/Creat Ratio 12.5 RATIO (10-20); Calcium,Total 8.5 mg/dL (8.5-10.1); Chloride 106 mmol/L (98-107); Creatinine, Serum 0.48 mg/dL (0.55-1.02); EST Glomerular Filtration Rate 158 mL/min (>60); Est Glom Filt Rate - Afr Amer 191 mL/min (>60); Glucose 98 mg/dL (74-106); Potassium 3.9 mmol/L (3.5-5.1); Sodium Level 137 mmol/L (136-145)
--- NOTE | 2018-10-10 08:44 | PN.SURG_ITS ---
Patient Problems: Active and Suspected Problems (Last Reviewed 10/10/18 @ 02:33 by Alan Torres MD) Intractable abdominal pain (Acute) Subjective: Patient presented due to nausea vomiting abdominal pain. Patient states yesterday morning she woke up and had the right lower quadrant pain and then started having a lot of nausea and vomiting. Patient recently underwent surgery with Dr. Marcial for a laparoscopic ventral hernia repair with mesh in September and previously in July underwent open ventral hernia repair near the umbilicus with mesh by myself. Patient came into the ER a CT abdomen pelvis was done which did not show any signs of infection of the mesh or any hernias or anything acute. Patient's white blood cell count was elevated at 13.9 patient also had a lactic acidosis of 7.6 which has improved to 4.6 with fluids. Patient complains of soreness in the left upper abdomen area but mainly complains of a pulling sensation in the right lower quadrant. Patient did see Dr. Pradhan once for this however she did not follow-up, she had an injection which she states did not help. She states she is only been able to eat a little bit at home she has had the pain along with the nausea. Patient states she has occasional wine, quit smoking 2 years ago, did smoke marijuana about a month ago but denies any other drugs. - Physical Exam General: Alert, Oriented x3, Cooperative, No apparent distress HEENT: Atraumatic Lungs: Normal air movement Cardiovascular: Regular rate Abdomen: Soft, Non-Distended, Passing Flatus, Tender - mild diffusely, incision well healed, no signs of infection, no PS Vital Signs Temp Pulse Resp BP Pulse Ox 97.9 F 88 18 107/63 98 10/10/18 04:40 10/10/18 07:02 10/10/18 04:40 10/10/18 04:40 10/10/18 08:17 Oxygen Delivery Method Room Air Weight: 303 lb 12.752 oz Body Mass Index (BMI) 50.5 Finger Stick Blood Glucose 109 Intake and Output for Last 24 Hours 10/08/18 10/09/18 10/10/18 23:59 23:59 23:59 Intake Total 344 / 344 Balance 344 / 344 Laboratory Tests Past 24 Hrs 10/09/18 10/09/18 10/09/18 17:55 17:55 17:55 WBC 13.9 H RBC 4.70 Hgb 14.8 Hct 43.2 MCV 91.9 MCH 31.5 MCHC 34.3 RDW 12.6 RDW Differential 41.8 Plt Count 391 MPV 9.3 Immature Gran % (Auto) 1.100 H Neut % (Auto) 64.6 Lymph % (Auto) 24.8 [place] % (Auto) 6.2 Eos % (Auto) 2.9 Baso % (Auto) 0.4 Absolute Neuts (auto) 9.0 H Absolute Lymphs (auto) 3.46 Total Counted Not Reportable PT INR Sodium 138 Potassium 3.2 L Chloride 104 Carbon Dioxide 18.0 L Anion Gap 16 H BUN 10 Creatinine 0.78 Estim Creat Clear Calc 92.31 Est GFR (MDRD) Af Amer 110 Est GFR (MDRD) Non-Af 91 BUN/Creatinine Ratio 12.9 Glucose 124 H Lactic Acid Calcium 9.5 Total Bilirubin 0.30 Direct Bilirubin 0.08 AST 16 ALT 28 Alkaline Phosphatase 60 Total Protein 7.9 Albumin 4.1 Globulin 3.8 Lipase 117 Serum , Qual NEGATIVE Urine Color Urine Clarity Urine pH Ur Specific [place] Urine Protein Urine Glucose (UA) Urine Ketones Urine Occult Blood Urine Nitrite Urine Bilirubin Urine Urobilinogen Ur Leukocyte Esterase Urine RBC Urine WBC Ur Squamous Epith Cells Urine Bacteria Urine Mucus 10/09/18 10/09/18 10/09/18 22:08 22:40 23:50 WBC RBC Hgb Hct MCV MCH MCHC RDW RDW Differential Plt Count MPV Immature Gran % (Auto) Neut % (Auto) Lymph % (Auto) [place] % (Auto) Eos % (Auto) Baso % (Auto) Absolute Neuts (auto) Absolute Lymphs (auto) Total Counted PT INR Sodium 140 Potassium 3.5 Chloride 107 Carbon Dioxide 16.0 L Anion Gap 17 H BUN 8 Creatinine 0.73 Estim Creat Clear Calc 98.63 Est GFR (MDRD) Af Amer 117 Est GFR (MDRD) Non-Af 97 BUN/Creatinine Ratio 10.9 Glucose 120 H Lactic Acid 7.3 H* Calcium 8.3 L Total Bilirubin Direct Bilirubin AST ALT Alkaline Phosphatase Total Protein Albumin Globulin Lipase Serum , Qual Urine Color Yellow Urine Clarity Sl Cldy Urine pH 6.0 Ur Specific [place] 1.020 Urine Protein 15 H Urine Glucose (UA) NEGATIVE Urine Ketones 15 H Urine Occult Blood Negative Urine Nitrite Negative Urine Bilirubin Negative Urine Urobilinogen Normal Ur Leukocyte Esterase Negative Urine RBC 0-5 SEEN Urine WBC 0-5 SEEN Ur Squamous Epith Cells 0-5 SEEN Urine Bacteria 1+ Urine Mucus 0 SEEN 10/10/18 10/10/18 10/10/18 02:14 06:59 06:59 WBC RBC Hgb Hct MCV MCH MCHC RDW RDW Differential Plt Count MPV Immature Gran % (Auto) Neut % (Auto) Lymph % (Auto) [place] % (Auto) Eos % (Auto) Baso % (Auto) Absolute Neuts (auto) Absolute Lymphs (auto) Total Counted PT 13.9 INR 1.1 Sodium 137 Potassium 3.9 Chloride 106 Carbon Dioxide 20.0 L Anion Gap 11 BUN 6 L Creatinine 0.48 L Estim Creat Clear Calc 150.00 Est GFR (MDRD) Af Amer 191 Est GFR (MDRD) Non-Af 158 BUN/Creatinine Ratio 12.5 Glucose 98 Lactic Acid 4.6 H* Calcium 8.5 Total Bilirubin Direct Bilirubin AST ALT Alkaline Phosphatase Total Protein Albumin Globulin Lipase Serum , Qual Urine Color Urine Clarity Urine pH Ur Specific [place] Urine Protein Urine Glucose (UA) Urine Ketones Urine Occult Blood Urine Nitrite Urine Bilirubin Urine Urobilinogen Ur Leukocyte Esterase Urine RBC Urine WBC Ur Squamous Epith Cells Urine Bacteria Urine Mucus Medical Necessity - Tobacco Use Smoking Status: Former smoker Tobacco Use: Cigarettes Assessment/Plan All Active Problems (Last Reviewed 10/10/18 @ 02:33 by Alan Torres MD) Intractable abdominal pain (Acute) Vomiting (Resolved) Recurrent ventral hernia with incarceration (Resolved) 1. CT abdomen pelvis was reviewed which is not show any signs of recurrent hernias or any signs of infection or any acute pathology. No plans for any current surgical intervention. 2. Continue IV fluids, monitoring labs and trending lactic acidosis, not sure the patient needs IV antibiotics as there is no source of infection Also discussed with Dr. Misha Miles M.D. Pager: [phone] [facility] [address] [place] [address], [facility], [address] [place] [address] Office: [phone]
[2018-10-10 09:13] LABS: Hemoglobin 12.4 g/dl (12.0-15.0); Mean Corp Hgb Conc 32.6 g/gl (32-36); Mean Platelet Vol. 8.9 fl (6.2-12.0); Platelet Count 285 K/mm3 (150-450); RBC Distribution Width CV 12.7 % (11.6-14.6); RBC Distribution Width SD 42.9 fl (35.1-43.9); Red Blood Count 4.13 M/mm3 (4.2-5.4); Scan Indicated on CBC? Y/N NO; White Blood Count 12.4 K/mm3 (4.4-11.0)
[2018-10-10 09:30] LABS: Lactic Acid 2.2 mmol/L (0.4-2.0)
[2018-10-10] MEDS: Senna/Docusate Sodium 1 Tablet 2 TABLET PO (11:00)
[2018-10-10] MEDS: Enoxaparin 40 MG/0.4 ML Syringe SC (11:00)
[2018-10-10 12:52] LABS: Reflex Lactate? Y
[2018-10-10 13:33] LABS: Lactic Acid 1.9 mmol/L (0.4-2.0)
[2018-10-10] MEDS: proMETHazine 25 MG/ML Syringe 12.5 MG IV ×2 (14:08→22:02)
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
--- NOTE | 2018-10-10 16:13 | PCM.DC ---
- Discharge Diagnoses Current Active Problems: Current Active and Chronic Problems (Last Reviewed 10/10/18 @ 02:33 by Alan Torres MD) Intractable abdominal pain (Acute) You will use the following diet at home:: Other - resume previous diet prescribed by Dr. Marcial Your food should be the consistency of: Mechanical soft (ground) Your liquids should be the consistency of: Regular/Thin Call your doctor if you observe: Fever of 101 or Higher Additional Instructions: Please keep your appt with Dr. Marcial on the 3rd. You can take Tylenol, Motrin or Naprosyn for pain relief. Allergies/Adverse Reactions: Allergies ketorolac tromethamine [From Toradol] Allergy (Verified 10/09/18 17:45) Shortness of breath ondansetron HCl [From Zofran] Allergy (Verified 10/09/18 17:45) Shortness of breath Medications to take at Discharge NK 10/09/18 Primary Care Physician: Care Physician,No Primary [Primary Care Provider] - Test Results: Test results from this visit will be discussed in further detail at your follow-up appointment, if applicable. Please Follow Up With: Heber Marcial MD When: has appt for 10/12/18 Proposed Discharge Date: 10/10/18
--- NOTE | 2018-10-10 16:18 | DCINST_ITS ---
- Discharge Diagnoses Current Active Problems: Current Active and Chronic Problems (Last Reviewed 10/10/18 @ 02:33 by Alan Torres MD) Intractable abdominal pain (Acute) You will use the following diet at home:: Other - resume previous diet prescribed by Dr. Marcial Your food should be the consistency of: Mechanical soft (ground) Your liquids should be the consistency of: Regular/Thin Call your doctor if you observe: Fever of 101 or Higher Additional Instructions: Please keep your appt with Dr. Marcial on the 3rd. You can take Tylenol, Motrin or Naprosyn for pain relief. Allergies/Adverse Reactions: Allergies ketorolac tromethamine [From Toradol] Allergy (Verified 10/09/18 17:45) Shortness of breath ondansetron HCl [From Zofran] Allergy (Verified 10/09/18 17:45) Shortness of breath Medications to take at Discharge NK 10/09/18 Primary Care Physician: Care Physician,No Primary [Primary Care Provider] - Test Results: Test results from this visit will be discussed in further detail at your follow- up appointment, if applicable. Please Follow Up With: Heber Marcial MD When: has appt for 10/12/18 Proposed Discharge Date: 10/10/18
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
[2018-10-10] MEDS: oxyCODONE 5 MG Tablet 10 MG PO (17:31)
[2018-10-10] MEDS: Acetaminophen 325 MG Tablet PO (18:05)
[2018-10-10] MEDS: DULoxetine Hcl 30 MG Capsule PO (21:54)
[2018-10-10] MEDS: Famotidine 20 MG Tablet PO (21:54)
[2018-10-11] VITALS (8 sets, daily range): BP systolic 128–135; BP diastolic 78–93; PULSE 74–86; RESP 14–16; TEMP 36.3–36.9; O2SAT 96–98
[2018-10-11] MEDS: oxyCODONE 5 MG Tablet 10 MG PO ×3 (00:15→11:42)
[2018-10-11] MEDS: Acetaminophen 325 MG Tablet PO ×3 (00:15→11:43)
[2018-10-11] MEDS: Famotidine 20 MG Tablet PO (10:24)
--- NOTE | 2018-10-11 11:35 | PCM.DC ---
- Discharge Diagnoses Current Active Problems: Current Active and Chronic Problems (Last Reviewed 10/10/18 @ 02:33 by Alan Torres MD) Intractable abdominal pain (Acute) multifactorial Severe depression Anxiety Severe IBS with acute exacerbation metabolic acidosis due to severe diarrhea due to exacerbation IBS You will use the following diet at home:: Other - Gluten free, dairy free diet for the next 2 weeks and then add back dairy. If no recurrence of the abdominal pain with dairy add Gluten. Your food should be the consistency of: Regular Your liquids should be the consistency of: Regular/Thin Discharge Activity: - - Try and walk for 30 minutes a day. Find something you still enjoy doing and give yourself 30-60 minutes a day to do this. Call your doctor if you observe: Fever of 101 or Higher, Inability to have a bowel movement, - - severe diarrhea, suicidal ideation, uncontrollable nausea and vomiting Instructions: Gluten-Free Diet for Celiac Disease, Diet and Lifestyle Tips for IBS, What is IBS? Additional Instructions: The etiology of the abdominal pain you are having is multifactorial. You have bad irritable bowel S and the anxiety and depression are making it worse. I have prescribed you Librax to get the IBS under control. I think you probably have gastritis which is inflammation of the stomach lining and this is also associated with stress. I have prescribed Pepcid for you....this decreases acid in the stomach. Your perception of pain is affected by the depression and this makes the pain worse....kacey at night when it is quiet and you are thinking more about it and not distracted. I have started you on Cymbalta(Duloxetine) which helps with depression, anxiety and chronic pain. I think you need to get back to counselling. I personally do not think that only taking medication without therapy works well. I think counselling is vital for you because you have anxiety, depression, chronic pain and PTSD. My hope is that you can get off the narcotics and manage your pain with tylenol or Naprosyn once the Cymbalta, Pepcid and Librax do their job. I did a blood test prior to you leaving the hospital for celiac's disease. this is also called Gluten sensitive enteropathy. I want you to stick to a gluten free, dairy free diet for 2 weeks and see if this decreases the abdominal pain and diarrhea. You can call me Tuesday or Tuesday at [phone] for the results of the test for celiac's disease.....it is called endomysial antibodies. Please read the information about Celiac's disease....it can be enlightening Allergies/Adverse Reactions: Allergies ketorolac tromethamine [From Toradol] Allergy (Verified 10/09/18 17:45) Shortness of breath ondansetron HCl [From Zofran] Allergy (Verified 10/09/18 17:45) Shortness of breath Medications to take at Discharge Clidinium/Chlordiazepoxide [Librax] 5 mg PO TID 30 Days #90 cap 10/11/18 Duloxetine Hcl [Cymbalta] 30 mg PO QHS #30 cap 10/11/18 Famotidine [Pepcid] 20 mg PO BID #60 tab 10/11/18 Oxycodone HCl/Acetaminophen [Percocet 10-325 mg Tablet] 1 tab PO Q6H 7 Days #56 tab 10/11/18 Polyethylene Glycol 3350 [Miralax] 17 gm PO DAILY packet 10/11/18 The following prescriptions were given: Duloxetine Hcl [Cymbalta] 30 mg PO QHS #30 cap Famotidine [Pepcid] 20 mg PO BID #60 tab Oxycodone HCl/Acetaminophen [Percocet 10-325 mg Tablet] 1 tab PO Q6H 7 Days #56 tab Clidinium/Chlordiazepoxide [Librax] 5 mg PO TID 30 Days #90 cap Primary Care Physician: Care Physician,No Primary [Primary Care Provider] - Please follow up with your Primary Care Physician in: [facility] for routine medical care Test Results: Test results from this visit will be discussed in further detail at your follow-up appointment, if applicable. Please Follow Up With: Heber Marcial MD When: has appt for 10/12/18 Proposed Discharge Date: 10/10/18
--- NOTE | 2018-10-11 11:39 | DCINST_ITS ---
- Discharge Diagnoses Current Active Problems: Current Active and Chronic Problems (Last Reviewed 10/10/18 @ 02:33 by Alan Torres MD) Intractable abdominal pain (Acute) multifactorial Severe depression Anxiety Severe IBS with acute exacerbation metabolic acidosis due to severe diarrhea due to exacerbation IBS You will use the following diet at home:: Other - Gluten free, dairy free diet for the next 2 weeks and then add back dairy. If no recurrence of the abdominal pain with dairy add Gluten. Your food should be the consistency of: Regular Your liquids should be the consistency of: Regular/Thin Discharge Activity: - - Try and walk for 30 minutes a day. Find something you still enjoy doing and give yourself 30-60 minutes a day to do this. Call your doctor if you observe: Fever of 101 or Higher, Inability to have a bowel movement, - - severe diarrhea, suicidal ideation, uncontrollable nausea and vomiting Instructions: Gluten-Free Diet for Celiac Disease, Diet and Lifestyle Tips for IBS, What is IBS? Additional Instructions: The etiology of the abdominal pain you are having is multifactorial. You have bad irritable bowel S and the anxiety and depression are making it worse. I have prescribed you Librax to get the IBS under control. I think you probably have gastritis which is inflammation of the stomach lining and this is also associated with stress. I have prescribed Pepcid for you....this decreases acid in the stomach. Your perception of pain is affected by the depression and this makes the pain worse....kacey at night when it is quiet and you are thinking more about it and not distracted. I have started you on Cymbalta(Duloxetine) which helps with depression, anxiety and chronic pain. I think you need to get back to counselling. I personally do not think that only taking medication without therapy works well. I think counselling is vital for you because you have anxiety, depression, chronic pain and PTSD. My hope is t hat you can get off the narcotics and manage your pain with tylenol or Naprosyn once the Cymbalta, Pepcid and Librax do their job. I did a blood test prior to you leaving the hospital for celiac's disease. this is also called Gluten sensitive enteropathy. I want you to stick to a gluten free, dairy free diet for 2 weeks and see if this decreases the abdominal pain and diarrhea. You can call me Tuesday or Tuesday at [phone] for the results of the test for celiac's disease.....it is called endomysial antibodies. Please read the information about Celiac's disease....it can be enlightening Allergies/Adverse Reactions: Allergies ketorolac tromethamine [From Toradol] Allergy (Verified 10/09/18 17:45) Shortness of breath ondansetron HCl [From Zofran] Allergy (Verified 10/09/18 17:45) Shortness of breath Medications to take at Discharge Clidinium/Chlordiazepoxide [Librax] 5 mg PO TID 30 Days #90 cap 10/11/18 Duloxetine Hcl [Cymbalta] 30 mg PO QHS #30 cap 10/11/18 Famotidine [Pepcid] 20 mg PO BID #60 tab 10/11/18 Oxycodone HCl/Acetaminophen [Percocet 10-325 mg Tablet] 1 tab PO Q6H 7 Days #56 tab 10/11/18 Polyethylene Glycol 3350 [Miralax] 17 gm PO DAILY packet 10/11/18 The following prescriptions were given: Duloxetine Hcl [Cymbalta] 30 mg PO QHS #30 cap Famotidine [Pepcid] 20 mg PO BID #60 tab Oxycodone HCl/Acetaminophen [Percocet 10-325 mg Tablet] 1 tab PO Q6H 7 Days #56 tab Clidinium/Chlordiazepoxide [Librax] 5 mg PO TID 30 Days #90 cap Primary Care Physician: Care Physician,No Primary [Primary Care Provider] - Please follow up with your Primary Care Physician in: [facility] for routine medical care Test Results: Test results from this visit will be discussed in further detail at your follow- up appointment, if applicable. Please Follow Up With: Heber Marcial MD When: has appt for 10/12/18 Proposed Discharge Date: 10/10/18
--- NOTE | 2018-10-11 12:30 | CASEMGMT ---
Physician wanted SW to give patient information on [employer]. SW gave patient a packet. It came up that she does not have insurance. SW told her that she actually has [employer]. WILBUR printed the policy number and phone number for [employer] for patient. She will call and check with [employer]. Maribell PHILLIPS MSW
--- NOTE | 2018-10-11 14:54 | BH.NOTE ---
: Inpatient Note - Notes Behavioral Health Inpatient Note: 10/11/18 14:54 Referral to [facility] from Dr. Cabral due to depression and anxiety. Met with pt in her room. Alert and oriented. Cooperative. Denies any suicidal ideations, plan, or intent. Reports chronic depression and anxiety which have exacerbated recently due to medical complications. Pt reports hx of 15 stomach surgeries in her lifetime which has affected her overall quality of life. Reports ruminations, compulsive-type behaviors, weekly panic attacks, isolative behaviors, and restlessness. Aware of the effects of MH on her daily functioning and reports being motivated to make a change. We discussed outpatient treatment options including [facility] IOP. Pt has hx of [facility] [place] and feels most comfortable returning to her therapist. Discussed benefits of IOP however pt is reluctant due to group counseling aspect. Given contact information for IOP as well as other MH providers in the area.
[2018-10-13 16:43] LABS: Endomysial Antibody IgA Negative (Negative)
== END 2018-10-11 12:01 | disposition home or self-care (01) ==
LOC: ED 19:12 → MS2 23:57 → PCU 10-10 00:26
PROVIDERS: Admitting Provider Hospitalist; Emergency Provider Emergency Medicine; Referring Provider Hospitalist; Visit Provider Internal Medicine
DX: R10.31 Right lower quadrant pain (principal); R00.0 Tachycardia, unspecified; K21.9 Gastro-esophageal reflux disease without esophagitis; R06.02 Shortness of breath; R11.2 Nausea with vomiting, unspecified; E66.01 Morbid (severe) obesity due to excess calories; Z68.43 Body mass index [BMI] 50.0-59.9, adult; Z71.3 Dietary counseling and surveillance; Z90.49 Acquired absence of other specified parts of digestive tract; Z87.891 Personal history of nicotine dependence; Z98.890 Other specified postprocedural states; K58.9 Irritable bowel syndrome, unspecified; E87.2 Acidosis; F41.9 Anxiety disorder, unspecified; F32.9 Major depressive disorder, single episode, unspecified; F43.12 Post-traumatic stress disorder, chronic
CPT/HCPCS: 36415; 71045; 74177; 80048; 80076; 81001; 83605; 83690; 84703; 85025; 85027; 85610; 86255; 87040; 96361; 96365; 96366; 96367; 96372; 96375; 96376; 99218; 99284; J7030; J7040; J7120; Q9967; A4216; G0378; J0744

== ENCOUNTER 2018-12-21 20:25 | Emergency (ER) | payer MEDICAID, SELFPAY ==
[2018-10-10 01:58] VITALS: BMI 50.5
[2018-12-21 20:25] VITALS: BP 163/103; PULSE 142; RESP 20; TEMP 36.9; O2SAT 95; BMI 50.3
--- NOTE | 2018-12-21 21:39 | CT_ITS ---
STUDY: CT ABDOMEN AND PELVIS WITH CONTRAST REASON FOR EXAM: Female, 33 years old. Abdominal pain. Question incarcerated hernia. History of hernia repair, kidney stones, appendectomy and cholecystectomy. History of abdominal aortic aneurysm repair. RADIATION DOSAGE (If Supplied By Facility): CTDIvol = ( 23.73 ) mGy, DLP = ( 1340.60 ) mGycm TECHNIQUE: Transaxial images were obtained from the dome of the diaphragm to the symphysis pubis without oral contrast. Isovue 300 100ML IV was administered. Sagittal and coronal images were reconstructed. Individualized dose optimization techniques were used for this CT. COMPARISON: CT of the abdomen and pelvis, October 09, 2018. FINDINGS: The visualized lung bases are unremarkable. The visualized portions of the heart are within normal limits. The liver is enlarged and diffusely fatty infiltrated. There is no focal mass. There are surgical clips in the gallbladder fossa consistent with a prior cholecystectomy. Moderate splenomegaly. Normal pancreas. Normal bilateral adrenal glands. The right kidney is malrotated. There is a 1 cm cyst in the upper pole. The right kidney is otherwise unremarkable. Left kidney is malrotated. There is a 1.2 cm exophytic cyst off the lower pole. Normal bilateral ureters. Normal visualized stomach. Normal small intestine. Normal colon. There is non-visualization of the appendix. Normal abdominal aorta. Normal inferior vena cava. Normal retroperitoneum. Normal urinary bladder. Normal uterus and ovaries. There is evidence of tubal ligation. There is no pelvic lymphadenopathy. No free air or free fluid is seen within the peritoneal cavity. There is a small supraumbilical ventral hernia containing omental fat. The transverse colon lies adjacent to the area. There is no evidence of incarceration or strangulation. Abdominal wall is otherwise unremarkable. Normal osseous structures. CT/Abdomen/Pelvis W IV Cont ONLY IMPRESSION: 1. Small supraumbilical hernia without evidence of incarceration or strangulation. 2. Hepatosplenomegaly with fatty infiltration of the liver. 3. Bilateral renal cysts. 4. Status post tubal ligation. Electronically Signed: Gustavo Ash DO at 22:27 EDT Tel [phone], Service support ,
[2018-12-21] MEDS: 0.9% Normal Saline 1,000 ML 1000 ML IV (21:47)
[2018-12-21] MEDS: proMETHazine 25 MG/ML Syringe 6.25 MG IV (21:47)
[2018-12-21] MEDS: Morphine 4 MG/ML Syringe IV (21:48)
[2018-12-21 21:50] LABS: Absolute Lymphocyte Count 2.91 X10^3/ul (0.83-4.51); Absolute Neutrophil Count 6.5 X10^3/uL (2.0-7.7); Basophil# 0.02 X10^3/uL; Basophil% 0.2 % (0-1); Eosinophil# 0.06 X10^3/uL; Eosinophils% 0.6 % (0-5); Hematocrit 40.8 % (37-47); Hemoglobin 13.6 g/dl (12.0-15.0); Lymphocyte # 2.91 X10^3/ul (4.0); Lymphocyte % 28.6 % (19-41); Mean Corp Hgb Conc 33.3 g/gl (32-36); Mean Corpuscular Hgb 30.9 pg (27.0-32.0); Mean Corpuscular Volume 92.7 fL (81-99); Mean Platelet Vol. 8.9 fl (6.2-12.0); Monocyte# 0.62 X10^3/uL; Monocyte% 6.1 % (0-10); Neutrophil % 63.8 % (47-70); Platelet Count 295 K/mm3 (150-450); RBC Distribution Width CV 12.5 % (11.6-14.6); RBC Distribution Width SD 41.5 fl (35.1-43.9); White Blood Count 10.2 K/mm3 (4.4-11.0)
[2018-12-21 21:51] LABS: POSITIVE COUNT NO; POSITIVE DIFFERENTIAL NO; POSITIVE MORPHOLOGY NO
[2018-12-21 23:22] VITALS: BP 136/65; PULSE 120; RESP 18; O2SAT 98
--- NOTE | 2018-12-21 23:31 | ED.VISSUMM ---
- ER Visit Summary Date of Service: 12/21/18 Chief Complaint: [Abdominal pain] History of Present Illness: The patient is a 33 F with history of abdominal hernia status post surgery. 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 She has no fever or chills this happened about 3 hours prior to arrival. No fever or chills no back pain no constipation or diarrhea. Pain is moderate to severe. Physical Examination: Patient appears in some distress. She has got clear lungs heart is regular. Abdomen is soft there is tenderness throughout the mostly in the supraumbilical region midline. Emergency Department Course and Treatment: Patient does not have leukocytosis she has a small hernia without any strangulation or incarceration. I discussed the patient with Dr. Marcial, he has done quite a few surgeries on her, however at this time he feels the patient will need a total abdominal wall reconstruction and told me to refer to [facility]. There is no emergency there is no reason for emergent transfer. I will discharge her in stable condition. Disposition: Discharge stable condition Impression: Abdominal wall hernia This note was generated with [employer] dictation software. It may contain incorrect words, spelling, and punctuation that were not noted in review of the chart prior to signing ED Disposition - Plan for ED Patient: Disposition: Home or Assisted Living Instructions: What Is a Hernia? Prescriptions: Oxycodone HCl/Acetaminophen [Percocet 5/325] 1 tab PO Q6H PRN PRN 3 Days #6 tab PRN Reason: Pain Additional Instructions: Call [facility]: [phone] *2* For an appointment to see a surgeon.
--- NOTE | 2018-12-21 23:39 | ED.DCSUM_ITS ---
- ER Visit Summary Date of Service: 12/21/18 Chief Complaint: [Abdominal pain] History of Present Illness: The patient is a 33 F with history of abdominal hernia status post surgery. 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 She has no fever or chills this happened about 3 hours prior to arrival. No fever or chills no back pain no constipation or diarrhea. Pain is moderate to severe. Physical Examination: Patient appears in some distress. She has got clear lungs heart is regular. Abdomen is soft there is tenderness throughout the mostly in the supraumbilical region midline. Emergency Department Course and Treatment: Patient does not have leukocytosis she has a small hernia without any strangulation or incarceration. I discussed the patient with Dr. Marcial, he has done quite a few surgeries on her, however at this time he feels the patient will need a total abdominal wall reconstruction and told me to refer to [facility]. There is no emergency there is no reason for emergent transfer. I will discharge her in stable condition. Disposition: Discharge stable condition Impression: Abdominal wall hernia This note was generated with [employer] dictation software. It may contain incorrect words, spelling, and punctuation that were not noted in review of the chart prior to signing ED Disposition - Plan for ED Patient: Disposition: Home or Assisted Living Instructions: What Is a Hernia? Prescriptions: Oxycodone HCl/Acetaminophen [Percocet 5/325] 1 tab PO Q6H PRN PRN 3 Days #6 tab PRN Reason: Pain Additional Instructions: Call [facility]: [phone] *2* For an appointment to see a surgeon.
[2018-12-21 23:54] VITALS: BP 136/65; PULSE 120; RESP 18; O2SAT 98
== END 2018-12-21 23:55 | disposition home or self-care (01) ==
PROVIDERS: Emergency Provider Emergency Medicine
DX: R10.9 Unspecified abdominal pain (principal); K43.9 Ventral hernia without obstruction or gangrene
CPT/HCPCS: 74177; 85025; 96361; 96374; 96375; 99285; J7030; Q9967; A4216

== ENCOUNTER 2019-01-01 16:14 | Emergency (ER) | payer MEDICAID, SELFPAY ==
[2019-01-01 16:15] VITALS: BP 160/84; PULSE 101; RESP 16; TEMP 36; O2SAT 95; BMI 50.4
--- NOTE | 2019-01-01 17:07 | RAD_ITS ---
STUDY: X-RAY - ACUTE ABDOMINAL SERIES REASON FOR EXAM: Female, 33 years old. Abdominal pain TECHNIQUE: Single view of the chest. Supine, and erect view(s) of the abdomen were obtained. COMPARISON: None. FINDINGS: The lungs are clear and expanded. Normal size heart. Normal mediastinum and denisse. Normal visualized pulmonary arteries. Normal visualized aortic arch and descending thoracic aorta. There is a non-specific bowel gas pattern. The soft tissue structures of the abdomen and pelvis are unremarkable. Right upper quadrant cholecystectomy clips. Tubal ligation clips. Normal visualized osseous structures. RAD/Acute Abdomen Inc Chest IMPRESSION: Normal x-ray examination of the chest, abdomen, and pelvis. Electronically Signed: Nick Armendariz DO at 18:26 EDT Tel , Service support ,
--- NOTE | 2019-01-01 17:09 | ED.VISSUMM ---
- ER Visit Summary Date of Service: 01/01/19 Chief Complaint: Abdominal pain with nausea and vomiting History of Present Illness: The patient is a 33 F history of a known periumbilical and incisional hernia. She had a prior appendectomy, cholecystectomy, C-sections, removal of abdominal mass and 6 prior hernia surgeries. Patient has a known hernia and she is just concerned because she is having more pain and now is nausea vomiting. She has appointment see Dr. Kam Danielson of the [facility] tomorrow. She has had a recent CAT scan less than 2 weeks ago at that time which is unremarkable. She has had multiple CAT scans over the last 12 months. She denies any fever. No dysuria. Physical Examination: Young female vital signs are stable afebrile. She is actively nausea and vomiting. HEENT exam unremarkable. Neck nontender. Lungs clear to auscultation bilaterally. Heart regular rhythm no murmur. Abdomen obese but soft. Nondistended. She has a known and a palpable umbilical hernia that does not reduce on its own. There is no obvious signs of obstruction. She has positive bowel sounds. Both the right upper right lower quadrant unremarkable. There are no peritoneal signs. Patient is moving all 4 extremities. There is no edema. Back is nontender. Neurologically she is awake and alert. Test Results: Chest x-ray and abdominal series no acute abnormality. No SBO. No air-fluid levels. No dilated bowel. Emergency Department Course and Treatment: Patient treated with IV fluids, Zofran and morphine. Repeat exam at 18:12 PM patient is doing well. Abdomen is benign. Treatment Plan: Discharged to home. Has a follow-up appointment to see the [facility] general surgeon tomorrow. Disposition: Discharge Impression: Acute on chronic abdominal pain with a known umbilical hernia This note was generated with [employer] dictation software. It may contain incorrect words, spelling, and punctuation that were not noted in review of the chart prior to signing ED Disposition - Plan for ED Patient: Referrals: Jose Barron MD [Primary Care Provider] -
[2019-01-01] MEDS: morphine 8 MG/ML Syringe IV (17:33)
[2019-01-01] MEDS: proMETHazine 25 MG/ML Syringe 12.5 MG IV (18:08)
[2019-01-01 18:16] VITALS: BP 143/80; PULSE 72; RESP 18; O2SAT 99
--- NOTE | 2019-01-01 18:18 | ED.DEP ---
ED Disposition - Plan for ED Patient: Disposition: Home or Assisted Living Referrals: Eros Yadav MD [STAFF PHYSICIAN] - Keep [facility] appointment Additional Instructions: Tylenol and Motrin for pain. Follow-up with Dr. Eros Yadav tomorrow with your scheduled appointment
[2019-01-01 18:21] VITALS: BP 143/80; PULSE 72; RESP 18; O2SAT 99
== END 2019-01-01 18:27 | disposition home or self-care (01) ==
PROVIDERS: Emergency Provider Emergency Medicine; Family Provider Family Medicine; PCP Family Medicine
DX: G89.29 Other chronic pain (principal); R10.9 Unspecified abdominal pain; R11.2 Nausea with vomiting, unspecified; K42.9 Umbilical hernia without obstruction or gangrene; Z90.49 Acquired absence of other specified parts of digestive tract
CPT/HCPCS: 74022; 96374; 96375; 99283; A4216; J2405

== ENCOUNTER 2019-01-29 09:26 | Emergency (ER) | payer MEDICAID, SELFPAY ==
[2019-01-29 09:27] VITALS: BP 153/118; BP 175/122; PULSE 126; PULSE 135; RESP 20; RESP 22; TEMP 36.8; O2SAT 95; O2SAT 98; BMI 47.4
--- NOTE | 2019-01-29 09:50 | RAD_ITS ---
STUDY: X-RAY - ACUTE ABDOMINAL SERIES REASON FOR EXAM: Female, 33 years old. Abdomen pain, back pain, nausea and vomiting. Cholecystectomy and appendectomy. Multiple hernia repairs. Question small bowel obstruction. TECHNIQUE: Single view of the chest. Supine, and upright view(s) of the abdomen were obtained. COMPARISON: None. FINDINGS: There is elevation of the right hemidiaphragm. The lungs appear clear. There is no pleural effusion. There is no pneumothorax. The cardiomediastinal silhouette appears normal. There is a non-specific bowel gas pattern. Air and stool are seen throughout including within the rectum. The soft tissue structures of the abdomen and pelvis are unremarkable. There is no acute osseous abnormality. RAD/Acute Abdomen Inc Chest IMPRESSION: Chest exam without evident acute cardiopulmonary disease. Projections of the abdomen demonstrating prior cholecystectomy with a nonspecific bowel gas pattern. There is no plain film evident obstruction or free air. Electronically Signed: Tavo Salazar MD at 11:29 EDT , Service support ,
--- NOTE | 2019-01-29 09:53 | ED.VISSUMM ---
- ER Visit Summary Date of Service: 01/29/19 Chief Complaint: Upper abdominal pain History of Present Illness: The patient is a 33 F history of 5 prior hernia repairs of the abdominal wall. 3 in different locations. Also with mesh. Patient has a pending evaluation by a hernia specialist at the [facility]. She is also had an appendectomy and cholecystectomy. States that since of last week she has had abdominal pain and today had nausea vomiting x3. Also diarrhea. No melena. No fever. No dysuria. Physical Examination: Young female no acute distress. Vital signs initial blood pressure is 175/122. Heart rate 126. Patient does have a history of anxiety and states she is very anxious about this. HEENT exam dry mucous membranes. Neck nontender. No lymphadenopathy. Lungs clear to auscultation bilaterally. Heart tachycardic rate about 125. No murmur. Abdomen is soft. Nondistended. Normal bowel sounds. Clinically this does not look like a bowel obstruction. No peritoneal signs. Mild epigastric tenderness. No rebound, guarding or rigidity. No masses. Patient is moving all 4 extremities. Neurovascularly intact. Neurologically she is awake and alert with no focal motor deficits. Test Results: CBC normal with a white count of 6. Normal hemoglobin. Chemistries normal normal creatinine and gap. Liver enzymes and lipase normal. KUB showed no signs of obstruction. Nonspecific bowel gas pattern. No air-fluid levels. Read by myself. Emergency Department Course and Treatment: Initially I ordered IV morphine, Phenergan and IV fluids. Nurses were able to get labs but were unable to obtain an IV. Patient was given p.o. Phenergan. I went back and reevaluate her she is doing well but she did throw up once. She will be given an IM injection of Phenergan. Some of her symptoms are also related to her anxiety. Abdomen is benign. She will be discharged home. With outpatient follow-up. Treatment Plan: Phenergan for nausea. She has suppositories at home. Disposition: Discharge Impression: Acute abdominal pain with nausea, vomiting and diarrhea History of chronic abdominal pain from prior hernias and recurrent hernias This note was generated with [employer] dictation software. It may contain incorrect words, spelling, and punctuation that were not noted in review of the chart prior to signing ED Disposition - Plan for ED Patient: Referrals: Jose Barron MD [Primary Care Provider] -
--- NOTE | 2019-01-29 09:56 | ED.DCSUM_ITS ---
- ER Visit Summary Date of Service: 01/29/19 Chief Complaint: Upper abdominal pain History of Present Illness: The patient is a 33 F history of 5 prior hernia repairs of the abdominal wall. 3 in different locations. Also with mesh. Patient has a pending evaluation by a hernia specialist at the [facility]. She is also had an appendectomy and cholecystectomy. States that since of last week she has had abdominal pain and today had nausea vomiting x3. Also diarrhea. No melena. No fever. No dysuria. Physical Examination: Young female no acute distress. Vital signs initial blood pressure is 175/122. Heart rate 126. Patient does have a history of anxiety and states she is very anxious about this. HEENT exam dry mucous membranes. Neck nontender. No lymphadenopathy. Lungs clear to auscultation bilaterally. Heart tachycardic rate about 125. No murmur. Abdomen is soft. Nondistended. Normal bowel sounds. Clinically this does not look like a bowel obstruction. No peritoneal signs. Mild epigastric tenderness. No rebound, guarding or rigidity. No masses. Patient is moving all 4 extremities. Neurovascularly intact. Neurologically she is awake and alert with no focal motor deficits. Test Results: CBC normal with a white count of 6. Normal hemoglobin. Chemistries normal normal creatinine and gap. Liver enzymes and lipase normal. KUB showed no signs of obstruction. Nonspecific bowel gas pattern. No air- fluid levels. Read by myself. Emergency Department Course and Treatment: Initially I ordered IV morphine, Phenergan and IV fluids. Nurses were able to get labs but were unable to obtain an IV. Patient was given p.o. Phenergan. I went back and reevaluate her she is doing well but she did throw up once. She will be given an IM injection of Phenergan. Some of her symptoms are also related to her anxiety. Abdomen is benign. She will be discharged home. With outpatient follow-up. Treatment Plan: Phenergan for nausea. She has suppositories at home. Disposition: Discharge Impression: Acute abdominal pain with nausea, vomiting and diarrhea History of chronic abdominal pain from prior hernias and recurrent hernias This note was generated with [employer] dictation software. It may contain incorrect words, spelling, and punctuation that were not noted in review of the chart prior to signing ED Disposition - Plan for ED Patient: Referrals: Jose Barron MD [Primary Care Provider] -
[2019-01-29 10:28] LABS: Absolute Lymphocyte Count 1.93 X10^3/ul (0.83-4.51); Absolute Neutrophil Count 4.1 X10^3/uL (2.0-7.7); Basophil# 0.02 X10^3/uL; Basophil% 0.3 % (0-1); Eosinophil# 0.14 X10^3/uL; Eosinophils% 2.1 % (0-5); Hematocrit 41.4 % (37-47); Hemoglobin 13.7 g/dl (12.0-15.0); Lymphocyte # 1.93 X10^3/ul (4.0); Lymphocyte % 29.4 % (19-41); Mean Corp Hgb Conc 33.1 g/gl (32-36); Mean Corpuscular Hgb 30.1 pg (27.0-32.0); Mean Platelet Vol. 9.3 fl (6.2-12.0); Monocyte# 0.33 X10^3/uL; Neutrophil # 4.11 X10^3/uL (2.7-7.7); Neutrophil % 62.7 % (47-70); Platelet Count 209 K/mm3 (150-450); RBC Distribution Width CV 12.9 % (11.6-14.6); RBC Distribution Width SD 42.8 fl (35.1-43.9); Red Blood Count 4.55 M/mm3 (4.2-5.4); White Blood Count 6.6 K/mm3 (4.4-11.0)
[2019-01-29 10:32] LABS: POSITIVE COUNT NO; POSITIVE DIFFERENTIAL NO; POSITIVE MORPHOLOGY NO
[2019-01-29 10:44] LABS: AST(SGOT) 21 U/L (15-37); Alanine Aminotransfer ALT/SGPT 29 U/L (13-56); Albumin, Serum 3.6 g/dL (3.2-5.0); Alkaline Phosphatase 53 U/L (45-117); Anion Gap 6 (5-15); BUN 11 mg/dL (7-18); BUN/Creat Ratio 16.7 RATIO (10-20); Bilirubin, Direct < 0.05 mg/dL (0.00-0.30); Calcium,Total 8.3 mg/dL (8.5-10.1); Chloride 110 mmol/L (98-107); Creatinine, Serum 0.66 mg/dL (0.55-1.02); EST Glomerular Filtration Rate 110 mL/min (>60); Est Glom Filt Rate - Afr Amer 133 mL/min (>60); Estimated Creatinine Clearance 109.09 ml/min; Globulin 3.1 g/dL (2.2-4.2); Glucose 126 mg/dL (74-106); Lipase 127 U/L (73-393); Potassium 3.5 mmol/L (3.5-5.1); Protein, Total 6.7 g/dL (6.4-8.2); Sodium Level 140 mmol/L (136-145)
[2019-01-29] MEDS: proMETHazine 25 MG Tablet PO (10:57)
[2019-01-29 11:27] VITALS: BP 212/120; PULSE 110; RESP 18; O2SAT 97
--- NOTE | 2019-01-29 11:34 | DCINST.ED_ITS ---
ED Disposition - Plan for ED Patient: Disposition: Home or Assisted Living Instructions: ED Abdominal Pain Unkn Cause Prescriptions: proMETHazine suppository [Phenergan] 25 mg RECTAL Q4H PRN PRN #10 suppos. PRN Reason: Nausea proMETHazine tablet [Phenergan tablet] 25 mg PO Q4H PRN PRN #10 tab PRN Reason: Nausea Referrals: Jose Barron MD [Primary Care Provider] - As Needed Additional Instructions: Fluids and rest. Increase diet slowly. Phenergan suppositories and/or tablets as needed for nausea. Follow-up with your surgeon at [facility] and/or your primary care physician return to the ER if feeling worse. All your labs today were normal. Your abdominal x-ray was normal with no signs of bowel obstruction.
--- NOTE | 2019-01-29 11:48 | NURSING ---
PT VERY UPSET AND ANGRY SAYING THAT IS TIRED OF THEM DISMISSING ME ALWAYS AND THAT IM SITTING HERE PUKING UP BLOOD AND IN MISERY AND THEY TRY TO START MY IV TWICE BUT THEN SAY 'NOTHING IS WRONG'?!!!! PT REFUSING PHENERGAN IM SHOT AND VERY UPSET OVER THEYRE SENDING ME HOME WITH STOKE LEVEL BP AND SEVERE PAIN! IM JUST SICK OF THIS PLACE AND AM OVER IT! I JUST WANT THE FUCK OUT OF HERE! PT CRYING AND SHAKING AND REFUSING TO LET NURSE RECHECK VITALS FOR DC. PUBLIC [employer]MENT [employer]IATOR AWARE AND JUST IN TO GIVE LAB AND XRAY RESULTS.
== END 2019-01-29 12:03 | disposition home or self-care (01) ==
PROVIDERS: Emergency Provider Emergency Medicine; Family Provider Family Medicine; PCP Family Medicine
DX: R10.9 Unspecified abdominal pain (principal); R11.2 Nausea with vomiting, unspecified; R19.7 Diarrhea, unspecified; F41.9 Anxiety disorder, unspecified; Z90.49 Acquired absence of other specified parts of digestive tract; Z87.442 Personal history of urinary calculi; Z87.891 Personal history of nicotine dependence
CPT/HCPCS: 74022; 80048; 80076; 83690; 85025; 96361; 96372; 96374; 96375; 99282; J7030

== ENCOUNTER → 2019-02-12 08:49 | Outpatient (CLI) | payer MEDICAID, SELFPAY ==
[2019-02-12 08:45] VITALS: BMI 47.4
--- NOTE | 2019-02-12 08:50 | RAD_ITS ---
STUDY: X-RAY - RIGHT KNEE REASON FOR EXAM: Female, 33 years old. Right knee pain. TECHNIQUE: 6 view(s) of the knee. COMPARISON: August 01, 2014. FINDINGS: Alignments are anatomic. There is no fracture lucency. There is no cortical step-off. There is no effusion. There is mild patellofemoral osteoarthritis which appears mildly progressed versus the 2013 comparison exam. There is no radiopaque joint loose body. Previously identified effusion has resolved. The soft tissue structures are unremarkable. RAD/Knee 4 or More Views IMPRESSION: Osseous anatomic alignment without acute osseous abnormality. Mild patellofemoral osteoarthritis which appears minimally progressed versus comparison. No radiopaque joint loose body. Previously identified effusion has resolved. Electronically Signed: Tavo Salazar MD at 13:54 EDT , Service support ,
== END ==
PROVIDERS: Family Provider Family Medicine; PCP Family Medicine; Referring Provider Orthopaedic Surgery; Visit Provider Orthopaedic Surgery
DX: R52 Pain, unspecified (principal)
CPT/HCPCS: 73564

== ENCOUNTER 2019-02-25 09:15 | Emergency (ER) | payer MEDICAID, SELFPAY ==
[2019-02-12 08:45] VITALS: BMI 47.4
[2019-02-25 09:17] VITALS: BP 161/92; PULSE 99; RESP 18; TEMP 36.8; O2SAT 99; BMI 47.0
--- NOTE | 2019-02-25 09:32 | ED.VISSUMM ---
- ER Visit Summary Date of Service: 02/25/19 Chief Complaint: Abdominal pain, nausea, vomiting History of Present Illness: The patient is a 33 F with history of chronic abdominal pain and 5 prior abdominal hernia repair surgeries. She also has had appendectomy and cholecystectomy. Patient ports a 3-day history of worsening bilateral abdominal pain. She states she has diarrhea but she has to strain to get it out. She said nausea and vomiting. She is scheduled to see a hernia specialist in [place] this coming week. She called the nurse line and was told to go the emergency room. She states that she gets hot and cold but does not know if she is actually running a fever. Physical Examination: Blood pressure is 161/92, otherwise vitals normal. She is afebrile. Patient sitting upright in bed intermittently tearful. Heart is regular rate and rhythm. Lung sounds are clear. Abdomen is soft with moderate diffuse tenderness. No guarding or rebound is noted. Hypoactive bowel sounds are present in all 4 quadrants. Test Results: CBC and chemistry studies unremarkable. LFTs and lipase normal. test negative. Abdominal x-ray with upright film shows no acute process. Emergency Department Course and Treatment: Patient was able to get blood draw but IV line was not able to be established. She was given 1 mg of IM Dilaudid and 25 mg of IM Phenergan. On repeat evaluation symptoms are improved. She has an appointment to see a specialist in 4 days. She will be given a short course of [place] and Phenergan for home. Treatment Plan: [] Disposition: Discharge Impression: Abdominal pain, uncertain etiology This note was generated with [employer] dictation software. It may contain incorrect words, spelling, and punctuation that were not noted in review of the chart prior to signing ED Disposition - Plan for ED Patient: Disposition: Home or Assisted Living Instructions: ED Abdominal Pain Unkn Cause Prescriptions: Hydrocodone Bitart/Apap 5-325 [[place] 5MG-325MG] 1 tablet PO Q6H PRN PRN 3 Days #10 tablet PRN Reason: Pain proMETHazine tablet [Phenergan] 25 mg PO Q6H PRN PRN #10 tablet PRN Reason: Nausea Referrals: Jose Barron MD [Primary Care Provider] - Additional Instructions: Follow-up with your specialist on as scheduled.
[2019-02-25 10:12] LABS: Absolute Lymphocyte Count 1.73 X10^3/ul (0.83-4.51); Absolute Neutrophil Count 4.7 X10^3/uL (2.0-7.7); Basophil# 0.02 X10^3/uL; Basophil% 0.3 % (0-1); Eosinophil# 0.22 X10^3/uL; Eosinophils% 3.1 % (0-5); Hematocrit 41.5 % (37-47); Hemoglobin 13.8 g/dl (12.0-15.0); Lymphocyte # 1.73 X10^3/ul (4.0); Lymphocyte % 24.3 % (19-41); Mean Corp Hgb Conc 33.3 g/gl (32-36); Mean Corpuscular Hgb 30.2 pg (27.0-32.0); Mean Corpuscular Volume 90.8 fL (81-99); Mean Platelet Vol. 9.3 fl (6.2-12.0); Monocyte# 0.42 X10^3/uL; Monocyte% 5.9 % (0-10); Neutrophil # 4.69 X10^3/uL (2.7-7.7); Neutrophil % 65.8 % (47-70); POSITIVE COUNT NO; POSITIVE DIFFERENTIAL NO; POSITIVE MORPHOLOGY NO; Platelet Count 229 K/mm3 (150-450); RBC Distribution Width CV 12.6 % (11.6-14.6); RBC Distribution Width SD 41.6 fl (35.1-43.9); Red Blood Count 4.57 M/mm3 (4.2-5.4); White Blood Count 7.1 K/mm3 (4.4-11.0)
[2019-02-25 10:24] LABS: Internal QC Validated? YES +Cl - CLEAR BKGD; Pregnancy, Serum, hCG Quali. NEGATIVE Negative
[2019-02-25 10:29] LABS: AST(SGOT) 23 U/L (15-37); Alanine Aminotransfer ALT/SGPT 34 U/L (13-56); Albumin, Serum 3.5 g/dL (3.2-5.0); Alkaline Phosphatase 53 U/L (45-117); Anion Gap 7 (5-15); BUN 7 mg/dL (7-18); BUN/Creat Ratio 11.2 RATIO (10-20); Bilirubin, Direct < 0.05 mg/dL (0.00-0.30); Calcium,Total 8.7 mg/dL (8.5-10.1); Chloride 106 mmol/L (98-107); Creatinine, Serum 0.62 mg/dL (0.55-1.02); EST Glomerular Filtration Rate 117 mL/min (>60); Est Glom Filt Rate - Afr Amer 141 mL/min (>60); Estimated Creatinine Clearance 116.13 ml/min; Globulin 3.6 g/dL (2.2-4.2); Glucose 108 mg/dL (74-106); Lipase 114 U/L (73-393); Potassium 4.3 mmol/L (3.5-5.1); Protein, Total 7.1 g/dL (6.4-8.2); Sodium Level 140 mmol/L (136-145)
--- NOTE | 2019-02-25 10:45 | RAD_ITS ---
STUDY: X-RAY - ABDOMEN/PELVIS REASON FOR EXAM: Female, 33 years old. Abdominal pain. TECHNIQUE: Two AP supine views of the abdomen and pelvis. COMPARISON: None. FINDINGS: Normal visualized lung bases. Cholecystectomy clips and sutures are in place. There is an unremarkable bowel gas pattern. There is no demonstrated free abdominal air. The visualized liver, spleen and kidneys are grossly normal in size and morphology. Normal soft tissue structures. Normal visualized osseous structures. Adnexal clips are noted. RAD/Abd Inc Decub and/or Erect IMPRESSION: No evidence of acute abdominal process or obstruction. Electronically Signed: Terry Zamora DO at 11:02 EDT , Service support ,
[2019-02-25] MEDS: proMETHazine 25 MG/ML Syringe IM (10:54)
[2019-02-25] MEDS: HYDROmorphone 1 MG/ML Syringe IM (10:54)
[2019-02-25 10:55] VITALS: BP 135/62; PULSE 74; RESP 15; O2SAT 99
== END 2019-02-25 11:45 | disposition home or self-care (01) ==
PROVIDERS: Emergency Provider Emergency Medicine; Family Provider Family Medicine; PCP Family Medicine
DX: R10.9 Unspecified abdominal pain (principal); R11.2 Nausea with vomiting, unspecified; R19.7 Diarrhea, unspecified; K21.9 Gastro-esophageal reflux disease without esophagitis; Z87.442 Personal history of urinary calculi; Z90.49 Acquired absence of other specified parts of digestive tract; G89.29 Other chronic pain
CPT/HCPCS: 74019; 80048; 80076; 83690; 84703; 85025; 96361; 96372; 96374; 96375; 99282

== ENCOUNTER 2019-06-19 18:06 | Inpatient (IN) | payer MEDICAID, SELFPAY ==
[2019-06-19] VITALS (7 sets, daily range): BP systolic 122–160; BP diastolic 70–109; PULSE 107–136; RESP 16–20; TEMP 36.7–37.4; O2SAT 97–99; BMI 50.8; BMI 51.0; BMI 51.1
--- NOTE | 2019-06-19 18:33 | EKG12_ITS ---
Test Reason : Blood Pressure : / mmHG Vent. Rate : 115 BPM Atrial Rate : 115 BPM P-R Int : 148 ms QRS Dur : 084 ms QT Int : 338 ms P-R-T Axes : 066 074 029 degrees QTc Int : 467 ms Sinus tachycardia Otherwise normal ECG Confirmed by KWAME HUFFMAN ([id number]), clinical editor KEZIA BARKER ([id number]) on 06/25/2019 2:07:28 PM Referred By: ISAÍAS Confirmed By:KWAME HUFFMAN
--- NOTE | 2019-06-19 18:43 | CT_ITS ---
STUDY: CT PELVIS WITH CONTRAST REASON FOR EXAM: Female, 33 years old. Postop infection RADIATION DOSAGE (If Supplied By Facility): CTDIvol = ( 28.21 ) mGy, DLP = ( 1157.31 ) mGycm TECHNIQUE: Transaxial imaging of the pelvis was performed without oral contrast. 100mL IV Isovue 300 was administered intravenously. Individualized dose optimization techniques were used for this CT. COMPARISON: None. FINDINGS: Normal urinary bladder. Tiny bilateral renal cysts are present Normal visualized small intestine. Normal visualized colon. Postop changes status post appendectomy There is no pelvic fluid. There is no pelvic lymphadenopathy or mass lesion. Normal visualized pelvic arteries. Postop change status post tubal ligation There is stranding within the subcutaneous fat within the lower anterior abdominal and upper pelvic wall in association with thickening of the transverse rectus muscles greater on the right as well as mild stranding within the fat in the anterior abdominal and pelvic cavity consistent with postsurgical and possibly superimposed inflammatory changes. No well-defined abscess collection observed. Lumbar spine demonstrates mild spondylosis CT/Pelvis WITH IV Contrast IMPRESSION: Postsurgical and possible inflammatory changes within the transverse rectus sheath bilaterally greater on the right as well as the fat in the lower anterior abdominal pelvic cavity as well as the subcutaneous fat of the anterior abdominal and pelvic rabago but no well-defined abscess collection identified. No evidence for abscess within the abdominal or pelvic cavity Electronically Signed: Jose Ayala MD at 20:08 EDT , Service support ,
[2019-06-19 18:59] LABS: Absolute Lymphocyte Count 2.45 X10^3/uL (0.83-4.51); Absolute Neutrophil Count 12.1 X10^3/uL (2.0-7.7); Basophil# 0.07 X10^3/uL; Basophil% 0.4 % (0-1); Eosinophil# 0.36 X10^3/uL; Eosinophils% 2.2 % (0-5); Hematocrit 40.8 % (37-47); Hemoglobin 13.6 g/dL (12.0-15.0); Lymphocyte # 2.45 X10^3/ul (4.0); Mean Corp Hgb Conc 33.3 g/dL (32-36); Mean Corpuscular Hgb 30.6 pg (27.0-32.0); Mean Corpuscular Volume 91.7 fL (81-99); Mean Platelet Vol. 8.7 fl (6.2-12.0); Monocyte# 1.05 X10^3/uL; Monocyte% 6.4 % (0-10); NRBC Flagged by Analyzer 0 % (0-5); Neutrophil # 12.06 X10^3/uL (2.7-7.7); Platelet Count 347 K/mm3 (150-450); RBC Distribution Width CV 12.2 % (11.6-14.6); RBC Distribution Width SD 40.9 fl (35.1-43.9); Red Blood Count 4.45 M/mm3 (4.2-5.4); White Blood Count 16.3 K/mm3 (4.4-11.0)
[2019-06-19 19:11] LABS: Anion Gap 9 (5-15); BUN 8 mg/dL (7-18); BUN/Creat Ratio 11.8 RATIO (10-20); Calcium,Total 9.5 mg/dL (8.5-10.1); Chloride 107 mmol/L (98-107); Creatinine, Serum 0.68 mg/dL (0.55-1.02); EST Glomerular Filtration Rate 106 mL/min (>60); Est Glom Filt Rate - Afr Amer 128 mL/min (>60); Estimated Creatinine Clearance 105.89 ml/min; Glucose 120 mg/dL (74-106); Potassium 3.4 mmol/L (3.5-5.1); Sodium Level 139 mmol/L (136-145)
[2019-06-19] MEDS: 0.9% Normal Saline 1,000 ML 1000 ML IV (19:15)
[2019-06-19] MEDS: proMETHazine 25 MG/ML Syringe 6.25 MG IV ×2 (19:16→20:29)
[2019-06-19] MEDS: Morphine 4 MG/ML Syringe IV ×2 (19:16→20:28)
--- NOTE | 2019-06-19 19:40 | RAD_ITS ---
STUDY: X-RAY CHEST REASON FOR EXAM: Female, 33 years old. Postop TECHNIQUE: PA and lateral COMPARISON: None. FINDINGS: The lungs are clear and expanded. There is no demonstrated pleural abnormality. Normal size heart. Normal mediastinum and denisse. Normal visualized pulmonary arteries. Normal visualized aortic arch and descending thoracic aorta. Dorsal spine demonstrates degenerative change. Normal visualized ribs, clavicles, and shoulders. There is no demonstrated abnormality of the visualized soft tissue structures of the upper abdomen. RAD/Chest PA and Lateral IMPRESSION: No acute cardiopulmonary pathology Electronically Signed: Jose Ayala MD at 20:02 EDT , Service support ,
[2019-06-19 19:45] LABS: Lactic Acid 3.4 mmol/L (0.4-2.0)
--- NOTE | 2019-06-19 19:53 | ED.RN ---
PER DR. ANDRADE VERBAL ORDER. ANTIBIOTICS ARE TO BE STARTED WITHOUT OBTAINING URINE SPECIMEN AT THIS TIME.
--- NOTE | 2019-06-19 20:21 | ED.VIS.GEN ---
History of Present Illness Chief Complaint: Abd Pain Detail of Chief Complaint: Fever, chills, drainage incision site and pain Informant: Patient Onset: Today Context: Sudden Onset Timing: Continuous Quality: Pain Location: Infraumbilical Current Severity: Mild Maximum Severity: Severe Worsened by: Palpation Relieved by: Nothing Associated Symptoms: Fever, rigors, nausea, drainage Narrative: Patient is a 33-year-old woman who was initially seen at [facility] and transferred to [facility] for bowel obstruction. She underwent surgery. Today she had a syncopal episode. Father called EMS. She went to outside facility. Patient and mother states that they had a bad interaction with the ER physician. They left. They present here. Patient appears ill. She states she does not feel well. She states she is had drainage from the wound superior portion of the midline infraumbilical incision. She denies ocular, visual auditory symptoms. She denies respiratory symptoms. Does report nausea with no vomiting diarrhea. She denies urologic symptoms. She does report rash. Prior similar symptoms: No Recent Illness/Hospitalization: Yes - Past Medical History (1) Intractable abdominal pain Status: Acute (2) GERD (gastroesophageal reflux disease) Status: Chronic (3) History of anxiety disorder Status: Chronic (4) Partial small bowel obstruction Status: Chronic Past Medical History - Allergies and Home Meds Allergies/Adverse Reactions: Allergies ketorolac tromethamine [From Toradol] Allergy (Verified 06/19/19 18:10) Shortness of breath ondansetron HCl [From Zofran] Allergy (Verified 06/19/19 18:10) Shortness of breath Primary Care Physician: Jose Barron MD [Primary Care Provider] - Prior records reviewed: Yes Surgical History: appendectomy, cholecystectomy, herniorrhaphy - x6. Patient reported that a mass was removed in her left lower quadrant. She reported that after she had an infection at the site where the mass was removed for which reason she had another surgery and then a wound VAC was placed., - - 3 sections, some type of bilateral reflux surgery dealing with the small bowel. Lives: With Family Smoking Status: Current every day smoker Alcohol: Rare Drugs: - - History of opiate use - Family History Maternal Family History: Reports: Diabetes, Hypertension, Stroke, - - Heart attack Paternal Family History: Reports: Cancer - Colon, Diabetes, Hypertension, - Review of Systems General: Reports: Chills, Fever, Malaise, Sweats. Denies: Subjective Eyes: Denies: Visual changes - bilaterally, Blurred Vision - bilaterally ENT: Denies: Bilateral ear pain, Rhinorrhea, Sore throat Cardiovascular: Reports: Heart racing. Denies: Chest pain, Palpitations Respiratory: Reports: Dyspnea. Denies: Cough, Sputum, Dyspnea on exertion Gastrointestinal: Reports: Abdominal pain, Nausea. Denies: Vomiting, Diarrhea, Constipation, Melena, Hematochezia Genitourinary: Denies: Dysuria, Hematuria, Frequency Musculoskeletal: Reports: Myalgias, Arthralgias. Denies: Neck pain, Back pain, Swelling, Extremity Pain Skin: Reports: Rash, Abscess, Wounds Neurological: Reports: Weakness. Denies: Headache, Parasthesia Endocrine: Denies: Polyuria, Polydipsia Hematologic: Denies: Easy bruising, Easy bleeding Allergy: Denies: Uticaria, Swelling of the mouth, Swelling of the tongue Physical Exam Vital Signs/Narrative: Vital Signs Temp Pulse Resp BP Pulse Ox 06/19/19 20:07 98.0 F 107 H 19 H 153/81 H 98 06/19/19 18:33 99.3 F H 125 H 16 122/79 H 98 06/19/19 18:07 98.7 F 136 H 20 H 160/109 H 99 Inital Vital Signs reviewed: Yes General: Well nourished, Well developed, Acute Distress, - - And has rigors. Head: Normocephalic, Atraumatic Eyes: Perrl, EOMI. Negative for: Pale conjunctiva, Scleral icterus ENT: Moist mucous membranes, No rhinorrhea Neck: Supple, Nontender Cardiovascular: Regular rhythm, No murmurs, Normal S1, Normal S2, Tachycardia Respiratory: No distress, CTA bilaterally, Chest nontender Abdomen: Soft, Nondistended, Normal bowel sounds Back: Nontender, Normal Inspection Extremities: Nontender, No edema Skin: Normal color, Rash - Bowl was removed. Area was parted. There is a small amount of brown purulent material noted. Area was probed with Q-tip. No other pockets were noted. Neurological: Alert, Oriented x3, Cranial nerves II-XII grossly intact, Normal Strength, Normal Sensation Psychological: Normal affect, Normal Mood Diagnostic/Tx/Re-eval Impressions Pelvis CT 06/19/19 18:43 IMPRESSION: Postsurgical and possible inflammatory changes within the transverse rectus sheath bilaterally greater on the right as well as the fat in the lower anterior abdominal pelvic cavity as well as the subcutaneous fat of the anterior abdominal and pelvic rabago but no well-defined abscess collection identified. No evidence for abscess within the abdominal or pelvic cavity Electronically Signed: Jose Ayala MD at 20:08 EDT , Service support , Chest X-Ray 06/19/19 19:40 IMPRESSION: No acute cardiopulmonary pathology Electronically Signed: Jose Ayala MD at 20:02 EDT , Service support , 06/19/19 18:43 CT Pel [Pelvis WITH IV Contrast] [CT] Stat 06/19/19 19:40 Chest PA and Lateral [RAD] Stat Laboratory Results 06/19/19 06/19/19 06/19/19 18:45 18:45 18:45 WBC 16.3 H RBC 4.45 Hgb 13.6 Hct 40.8 MCV 91.7 MCH 30.6 MCHC 33.3 RDW Std Deviation 40.9 RDW Coeff of Juan 12.2 Plt Count 347 MPV 8.7 Immature Gran % (Auto) 2.000 H Neut % (Auto) 74.0 H Lymph % (Auto) 15.0 L [place] % (Auto) 6.4 Eos % (Auto) 2.2 Baso % (Auto) 0.4 Absolute Neuts (auto) 12.1 H Absolute Lymphs (auto) 2.45 Nucleated RBC % 0 Sodium 139 Potassium 3.4 L Chloride 107 Carbon Dioxide 23.0 Anion Gap 9 BUN 8 Creatinine 0.68 Estim Creat Clear Calc 105.89 Est GFR (MDRD) Af Amer 128 Est GFR (MDRD) Non-Af 106 BUN/Creatinine Ratio 11.8 Glucose 120 H Lactic Acid 3.4 H Calcium 9.5 - Medical Decision Making He has signs and symptoms of sepsis. Sepsis work-up was undertaken. Blood cultures were obtained. Antibiotics were ordered. CT of the pelvis was ordered to evaluate if there is a large abscess. None was noted. Patient does not wish to go back to [facility]. Since she is a [facility] physician Dr. Eros Danielson was paged who is a clinic clinic surgeon to discuss case and determine if he is willing to keep patient here since she does not wish to go back to [facility]. Case was discussed with Dr. Eros Yadav. He requested Dr. Yakelin Salas to see patient. She will see patient in consultation and write admitting orders. - Critical Care Time Critical care time (excluding procedures): 30-74 minutes, Discussing w/Patient &/or Family/[employer], Discussing w/Consultants, Arranging Admission or Transfer ED Disposition - Plan for ED Patient: Disposition: Home or Assisted Living Diagnosis: Severe sepsis, Cellulitis, abdominal wall, Sinus tachycardia by electrocardiogram Referrals: Jose Barron MD [Primary Care Provider] -
--- NOTE | 2019-06-19 20:48 | ED.RN ---
HOSPITALIST PAGED FOR ADMISSION
--- NOTE | 2019-06-19 21:06 | PCM.CONS.GEN ---
Problem List (1) Severe sepsis Status: Acute (2) Cellulitis, abdominal wall Status: Acute (3) Elevated BP without diagnosis of hypertension Status: Acute (4) Anxiety and depression Status: Chronic (5) Morbid obesity Status: Chronic (6) JAGJIT (obstructive sleep apnea) Status: Suspected (7) GERD (gastroesophageal reflux disease) Status: Chronic Qualifiers: Esophagitis presence: esophagitis presence not specified Qualified Code(s): K21.9 - Gastro-esophageal reflux disease without esophagitis (8) Partial small bowel obstruction Status: Resolved Reason for Consult Date of Consultation: 06/19/19 Reason for Consultation: Fever, chills, nausea, abdominal pain, incisional drainage, erythema History of Present Illness: The patient is a 33 y/o F w/ PMHx: Morbid Obesity, GERD, Hx Anxiety and Depression, Tobacco use, Possible JAGJIT with notable snoring history per patient report with failure to perform the recommended JAGJIT evaluation outpatient, Notable history of serial ventral/incisional hernias x 6 with recent transfer from [facility] ED on 06/10/19 secondary to notable sharp, 07/19, abdominal pain with resulting diagnosis partial SBO with admission to [facility] with WAI, possible mesh removal and discharge per patient report the following day once tolerated clear liquids with ongoing loose stools with any oral intake since discharge and then onset progressively worsening poor intake, no appetite, nausea, emesis, incisional erythema w/ purulent discharge, fever, chills as well as syncopal event with no trauma x 48-72 hours prompting evaluation in the ED. Patient very adamant about not returning to [facility]. Dr. Yadav amenable to accepting and admitting patient. Requested Hospitalist consultation to assist with admission. Work-up in the ED included T 99.3, heart rate 136 with improvement to 109 following IV fluids, BP 160/109, respiratory rate 20, 99% on room air, CBC with WBC 16.3, hemoglobin 13.6, platelets 347 with left shift, BMP with potassium 3.4, glucose 120, lactic acid 3.4, chest x-ray with no acute cardiopulmonary findings, CT pelvis with postsurgical and inflammatory changes within the transverse rectus sheath bilaterally greater on the right as well as in the fat in the lower abdominal anterior pelvic cavity as well as subcutis fat of the anterior abdominal and pelvic rabago but no specific well-defined abscess or collection. In the ED patient ministered normal saline 1 L, Phenergan, morphine, Zosyn and vancomycin. Past Medical History Past Medical History (Chronic Problems): Chronic Problems (Last Reviewed 10/10/18 @ 02:33 by Alan Torres MD) Anxiety and depression (Chronic) Morbid obesity (Chronic) History of anxiety disorder (Chronic) GERD (gastroesophageal reflux disease) (Chronic) Medical History: Medical History (Last Reviewed 10/10/18 @ 02:33 by Alan Torres MD) History of anxiety disorder (Chronic) Z86.59 GERD (gastroesophageal reflux disease) (Chronic) K21.9 Partial small bowel obstruction (Chronic) Vomiting (Resolved) R11.10 Allergies ketorolac tromethamine [From Toradol] Allergy (Verified 06/19/19 18:10) Shortness of breath ondansetron HCl [From Zofran] Allergy (Verified 06/19/19 18:10) Shortness of breath Home Medications: Ambulatory Orders Medication Instructions Recorded NK 06/19/19 Surgical History: Surgical History (Last Reviewed 10/10/18 @ 02:33 by Alan Torres MD) Recurrent ventral hernia with incarceration (Resolved) K43.0 Surgical History: appendectomy, cholecystectomy, herniorrhaphy - x6. Patient reported that a mass was removed in her left lower quadrant. She reported that after she had an infection at the site where the mass was removed for which reason she had another surgery and then a wound VAC was placed., - - 3- sections, ventral and incisional hernia repairs with mesh x 6, cholecystectomy, appendectomy, tonsillectomy, recent exploratory laparotomy with lysis of adhesions and possible mesh removal. Psychiatric History: Anxiety [employer] History: No pertinent [employer] history Lives: With Family - Patient lives with her mother and father. Smoking Status: Current every day smoker - Patient currently smokes 1/2 pack/day cigarette tobacco usage. Tobacco Use: Cigarettes Alcohol: Occasional Drugs: Marijuana - Patient smokes cannabis 1-2 times monthly. - *Family History Maternal History Items: Diabetes, Heart Disease, Hypertension, Stroke Paternal History Items: Cancer - Colon, Diabetes, Heart Disease, Hypertension Review of Systems Constitutional: Reports: Anorexia, Chills, Fever, Malaise, Weakness, Fatigue. Denies: Weight Change HEENT: Denies: Head Aches, Sinus Congestion, Sinus Drainage Cardiovascular: Reports: Light Headedness, Syncope. Denies: Chest Pain, Chest Pressure, Chest Tightness, Heaviness, Orthopnea, Palpitations Respiratory: Denies: Cough, Shortness of breath at rest, Sputum production Gastrointestinal: Reports: Abdominal Pain, Diarrhea, Nausea, Vomiting Genitourinary: Denies: Dysuria Gynecological: Reports: Vaginal bleeding - Patient toward the end of her menstrual cycle and still has some mild bleeding. Musculoskeletal: Reports: Back Pain. Denies: Joint Pain, Joint Tenderness Skin: Denies: Rash, Wounds Neurological: Denies: Numbness, Tingling, Focal weakness Psychiatric: Reports: Anxiety, Depression. Denies: Homicidal Ideations, Suicidal Ideations Hematologic/ Lymphatic: Denies: Easy Bruising, Easy Bleeding Patient Problems: Active and Suspected Problems (Last Reviewed 10/10/18 @ 02:33 by Alan Torres MD) Severe sepsis (Acute) Cellulitis, abdominal wall (Acute) Sinus tachycardia by electrocardiogram (Acute) JAGJIT (obstructive sleep apnea) (Suspected) Elevated BP without diagnosis of hypertension (Acute) Subjective: Seated upright in the ED bed, fatigued and uncomfortable appearing, ill-appearing. Objective: Physical Examination: General: awake, alert, oriented x 3 and cooperative, seated upright in the ED bed in no apparent distress but ill and fatigued appearing. Skin: Flushed color, turgor, no icterus, cyanosis. HEENT: AT/NC, EOMI, PERRLA, dry MM, no carotid bruits or JVD noted. Lungs: CTA bilaterally, moderate effort, moderate decrease BL bases, no rales, ronchi or wheezing. Heart: Tachycardic with regular; no gallop, rub audible. Abdomen: soft, morbidly obese, recent operative intervention with midline lower abdominal incision with shilpa in place, erythematous along the incision, worse distally, erythema extending to the lower abdomen and pannus below this, extremely tender to palpation, able to express purulent material with palpation of the region, no marketed induration noted, unable to assess distention given morbid obese habitus, decreased bowel sounds, difficult to assess HSM secondary to habitus and acute pain. Extremities: no cyanosis, clubbing, or edema. Neurological: patient awake, alert, oriented x 3; cognitive function intact; pupils equally reactive to light and accomodation; cranial nerves II-XII grossly normal, moving all 4 extremities, no focal deficits, strength severely global decrease secondary to acute presentation. Psychiatric: affect appears fatigued, ill-appearing, no acute evidence of depressive or anxiety feelings. - Physical Exam Vital Signs Temp Pulse Resp BP Pulse Ox 98.0 F 107 H 19 H 153/81 H 98 06/19/19 20:07 06/19/19 20:07 06/19/19 20:07 06/19/19 20:07 06/19/19 20:07 Oxygen Delivery Method Room Air Weight: 305 lb 12.146 oz Body Mass Index (BMI) 50.8 Finger Stick Blood Glucose 109 Intake and Output for Last 24 Hours 06/17/19 06/18/19 06/19/19 23:59 23:59 23:59 Intake Total 1100 / 1100 Balance 1100 / 1100 Laboratory Tests Past 24 Hrs 06/19/19 06/19/19 06/19/19 18:45 18:45 18:45 WBC 16.3 H RBC 4.45 Hgb 13.6 Hct 40.8 MCV 91.7 MCH 30.6 MCHC 33.3 RDW Std Deviation 40.9 RDW Coeff of Juan 12.2 Plt Count 347 MPV 8.7 Immature Gran % (Auto) 2.000 H Neut % (Auto) 74.0 H Lymph % (Auto) 15.0 L Sanborn % (Auto) 6.4 Eos % (Auto) 2.2 Baso % (Auto) 0.4 Absolute Neuts (auto) 12.1 H Absolute Lymphs (auto) 2.45 Nucleated RBC % 0 Sodium 139 Potassium 3.4 L Chloride 107 Carbon Dioxide 23.0 Anion Gap 9 BUN 8 Creatinine 0.68 Estim Creat Clear Calc 105.89 Est GFR (MDRD) Af Amer 128 Est GFR (MDRD) Non-Af 106 BUN/Creatinine Ratio 11.8 Glucose 120 H Lactic Acid 3.4 H Calcium 9.5 Assessment/Plan All Active Problems (Last Reviewed 10/10/18 @ 02:33 by Alan Torres MD) Severe sepsis (Acute) Cellulitis, abdominal wall (Acute) Sinus tachycardia by electrocardiogram (Acute) Elevated BP without diagnosis of hypertension (Acute) Intractable abdominal pain (Acute) Partial small bowel obstruction (Resolved) Vomiting (Resolved) Recurrent ventral hernia with incarceration (Resolved) The patient is a 33 y/o F w/ PMHx: Morbid Obesity, GERD, Hx Anxiety and Depression, Tobacco use, Possible JAGJIT with notable snoring history per patient report with failure to perform the recommended JAGJIT evaluation outpatient, Notable history of serial ventral/incisional hernias x 6 with recent transfer from [facility] ED on 06/10/19 secondary to partial SBO with recent admission to [facility] with OR WAI, possible mesh removal with discharge the following day with ongoing loose stools since and now onset progressively worsening decreased oral intake, nausea, emesis, incisional erythema w/ purulent discharge, fever, chills as well as syncopal event with no trauma x 48-72 hours prompting evaluation in the ED. 1. Acute Severe Sepsis secondary to Recent partial small bowel obstruction with now operative intervention with now Postoperative incisional infection, Cellulitis, Possibly developing abscess: Patient will be admitted per Dr. Yadav, amenable to keeping patient at [facility] given recent [facility] surgery 1 week prior, hospitalist consultation requested to assist with admission, planned PCU admission given severe sepsis presentation, continue aggressive hydration, wound culture and wound MRSA PCR pending, trend CBC, trend lactic acid, wound RN consultation, dressing changes, continue broad-spectrum antibody therapy with vancomycin and Zosyn pending cultures. Given also ongoing diarrhea and recent antibiotic therapy will obtain stool cultures, C. difficile however may merely be the patient is only been able to tolerate clear liquids. 2. Elevated BP without HTN: Patient notes elevated pressures recently but was not started on oral regimen upon recent discharge, possibly secondary to acute presentation with pain, will maintain on IV hydralazine but if remains elevated may need to consider oral regimen initiation once appropriate. 3. Syncopal event likely secondary to #1: Patient denies any trauma associated, continue aggressive treatment as noted #1, #2, fall precautions. 4. Morbid Obesity: Weight loss and lifestyle changes encouraged, nutrition consulted. 5. History of anxiety and depression: Not on regimen, defer to outpatient. 6. Tobacco Abuse: Encouraged cessation, inpatient consultation per RT, NR if desired. 7. Suspected JAGJIT: From patient description high JAGJIT possibility, had been recommended to have testing outpatient but has not done so, will maintain on continuous pulse oximeter. 8. Hypokalemia: Admission K+ 3.4, supplementation given, repeat level in AM. 9. GERD: IV Famotidine. 10. DVT Prophylaxis: SCDs, lovenox. Code Visit Office Visits / Consults: [id number] IP Consult L5
[2019-06-19 21:28] LABS: Mucous, Urine 0 SEEN /hpf (<or=2+)
[2019-06-19 21:31] LABS: Color, Urine Yellow (Yellow); Glucose, Dipstick Normal (Normal); Ketone-Dipstick Negative (Negative); Leukocyte Esterase-Dipstick 100 /ul (Negative); Nitrite-Dipstick Negative (Negative); Occult Blood-Urine 250 /ul (Negative); Protein-Dipstick 100 mg/dl (Negative); Specific Gravity, Urine 1.015 (1.002-1.030); Urine Bilirubin Dipstick Negative (Negative); Urine Clarity Sl. Cloudy (Clear); Urine Urobilinogen Normal (Normal)
[2019-06-19 21:38] LABS: Bacteria RARE /hpf (None Seen); Red Blood Cells-Urine 5-10 SEEN /hpf (0-5); Squamous Epithelial Cells - UA 10-25 SEEN /hpf (5-10); White Blood Cells 10-25 SEEN /hpf (0-5)
[2019-06-19 21:39] LABS: Amorphous Sediment 1+ URATE
[2019-06-19 22:04] LABS: Magnesium 1.9 mg/dL (1.6-2.6)
--- NOTE | 2019-06-19 22:45 | PCM.RX.CS ---
Consult Pharmacy has been consulted to manage selected antiobiotic: Vancomycin Type of Consult: New start Suspected Infection: Sepsis Prior Doses of Antibiotics Received/Current Regimen: Medications Vancomycin HCl 1,500 mg/ (Sodium Chloride) 530 mls @ 250 mls/hr IV Q8H JUAN Discontinued Medications Vancomycin HCl 2,000 mg/ (Sodium Chloride) 540 mls @ 250 mls/hr IV X1 ONE Stop: 06/19/19 21:54 Last Admin: 06/19/19 20:42 Dose: 250 mls/hr Labs: Sodium 139 mmol/L (136-145) 06/19/19 18:45 Potassium 3.4 mmol/L (3.5-5.1) L 06/19/19 18:45 Chloride 107 mmol/L (98-107) 06/19/19 18:45 Carbon Dioxide 23.0 mmol/L (21.0-32.0) 06/19/19 18:45 Anion Gap 9 (5-15) 06/19/19 18:45 BUN 8 mg/dL (7-18) 06/19/19 18:45 Creatinine 0.68 mg/dL (0.55-1.02) 06/19/19 18:45 Est GFR (MDRD) Af Amer 128 mL/min (>60) 06/19/19 18:45 Est GFR (MDRD) Non-Af 106 mL/min (>60) 06/19/19 18:45 BUN/Creatinine Ratio 11.8 RATIO (10-20) 06/19/19 18:45 Glucose 120 mg/dL (74-106) H 06/19/19 18:45 Weight used for dosin kg Estimated Creatinine Clearance: 106 Goal Trough: 15-20 mcg/mL Pharmacy Plan for Drug Dosing: Initial 2000mg vancomycin IV dose was given in ED. Will continue with 1500mg q8h and draw trough level prior to 4th dose. Pharmacy Service will continue to monitor and adjust dosing as required. Follow-Up Labs: Trough Vancomycin Labs to be done on [date and time ordered]: 06/20/19 @1999
[2019-06-19 22:53] LABS: Reflex Lactate? Y
[2019-06-19] MEDS: 0.9% NaCl Peripheral Flush Adult/Peds IV (23:01)
[2019-06-19] MEDS: 0.9% Normal Saline 1,000 ML 150 ML IV (23:01)
[2019-06-19] MEDS: Potassium Chloride 10mEq/100mL 10 MEQ/100 ML IV.SOLN. 100 MEQ IV BOLUS (23:23)
[2019-06-19 23:51] LABS: Lactic Acid 2.6 mmol/L (0.4-2.0)
--- NOTE | 2019-06-19 23:52 | NURSING ---
LACTIC ACID RESULT TAKEN FROM LAB AT THIS TIME, RESULT IS 2.6. LAB RESULT RELAYED TO PATIENT'S PRIMARY NURSE SUKI SALAZAR.
[2019-06-20] VITALS (10 sets, daily range): BP systolic 118–159; BP diastolic 59–87; PULSE 84–93; RESP 16–18; TEMP 36.4–37.1; O2SAT 97–98
[2019-06-20] MEDS: 0.9% NaCl Peripheral Flush Adult/Peds IV ×10 (00:01→22:05)
[2019-06-20] MEDS: HYDROmorphone 1 MG/ML Syringe IV ×7 (00:03→20:43)
[2019-06-20] MEDS: Potassium Chloride 10mEq/100mL 10 MEQ/100 ML IV.SOLN. 100 MEQ IV BOLUS ×3 (00:19→02:41)
--- NOTE | 2019-06-20 02:02 | NURSING ---
Plan of Care and Outcomes of AMS, RF, and PNA documented under wrong patient.
[2019-06-20 02:34] LABS: M R Staph aureus DNA By PCR Negative (Negative); Probe Check PASS; Specimen Processing Control PASS; Staph aureus DNA By PCR NEGATIVE (Negative)
[2019-06-20] MEDS: proMETHazine 25 MG/ML Syringe 6.25 MG IV ×5 (04:00→22:05)
[2019-06-20 05:11] LABS: Absolute Lymphocyte Count 2.58 X10^3/uL (0.83-4.51); Absolute Neutrophil Count 8.4 X10^3/uL (2.0-7.7); Basophil# 0.07 X10^3/uL; Basophil% 0.6 % (0-1); Eosinophil# 0.52 X10^3/uL; Eosinophils% 4.2 % (0-5); Hematocrit 35.7 % (37-47); Hemoglobin 11.7 g/dL (12.0-15.0); Lymphocyte # 2.58 X10^3/ul (4.0); Lymphocyte % 20.7 % (19-41); Mean Corp Hgb Conc 32.8 g/dL (32-36); Mean Corpuscular Hgb 30.9 pg (27.0-32.0); Mean Corpuscular Volume 94.2 fL (81-99); Mean Platelet Vol. 8.6 fl (6.2-12.0); Monocyte# 0.69 X10^3/uL; Monocyte% 5.5 % (0-10); NRBC Flagged by Analyzer 0 % (0-5); Neutrophil # 8.39 X10^3/uL (2.7-7.7); Neutrophil % 67.2 % (47-70); Platelet Count 279 K/mm3 (150-450); RBC Distribution Width CV 12.4 % (11.6-14.6); RBC Distribution Width SD 43.2 fl (35.1-43.9); Red Blood Count 3.79 M/mm3 (4.2-5.4); White Blood Count 12.5 K/mm3 (4.4-11.0)
[2019-06-20 05:22] LABS: Anion Gap 9 (5-15); BUN 7 mg/dL (7-18); Calcium,Total 8.2 mg/dL (8.5-10.1); Chloride 110 mmol/L (98-107); Creatinine, Serum 0.58 mg/dL (0.55-1.02); EST Glomerular Filtration Rate 126 mL/min (>60); Est Glom Filt Rate - Afr Amer 152 mL/min (>60); Estimated Creatinine Clearance 124.14 ml/min; Glucose 106 mg/dL (74-106); Potassium 3.9 mmol/L (3.5-5.1); Sodium Level 141 mmol/L (136-145)
[2019-06-20] MEDS: 0.9% NaCl IVPB Med Flush (250 mL) 15 ML IV (05:24)
--- NOTE | 2019-06-20 06:32 | PCM.HP.STD ---
History of Present Illness Date of Admission: 06/19/19 Chief Complaint: abdominal pain The patient is a 33 year old F with post op wound infection after recent lysis of adhesions performed at [facility]. I did initially seen the patient in December 2018. At the time I noted: Rebeka is a 33 year old female with a complaint of?a bulge ?and discomfort ?in her?upper midline incision after the upper left and right lateral upper abdominal areas. ?The patient notes discomfort in this area with lifting, straining and coughing. ?The symptoms have increased, over the past?few?weeks. ? The patient has a past surgical history of appendectomy, cholecystectomy, multiple C-sections. 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 ?The patient developed a wound infection following that the site was opened and a wound VAC applied. ? The patient was otherwise doing relatively well. ?She had what sounds like an open midline incision for a reflux surgical procedure a few years previously. ?Since that time, she has developed multiple midline incisional hernias. ?She apparently had incisional hernia repair without mesh performed prior to her presentation in 2018 at [facility]. ? She initially presented on October 19, 2017 for was felt to be a recurring incisional hernia with transverse colon included within the hernia. ?She was taken emergently and underwent simple closure through that area in her upper midline. This was performed by Dr. Sebastian Marcial ? She then had a recurrence of that site and was transferred to [facility] where she again underwent a recurrent ventral hernia repair with what sounds like simple sutures listed as July 06, 2018. ? She then had recurrence of a hernia at the level of her umbilicus area and she was taken for open repair with a 6.4 cm match-e-be-nash-she-wish band ventralex mesh placed through the umbilicus on July 12, 2018. This was was performed by Dr. Rosetta Miles ? Next the patient had a recurrence in the upper midline area. ?She was taken to the operating suite in September 26, 2018 for recurrent incarcerated ventral hernia and underwent laparoscopic ventral hernia repair with what I believe was a [address] mesh. This was performed by Dr. Sebastian Marcial ? She presented to [facility] emergency department on December 21 with complaints of upper abdominal pain. ???CT scan of the abdomen and pelvis was obtained. ?This was read as a small supraumbilical ventral hernia containing omental fat. ?It stated the transverse colon right adjacent to the area. ? My review the CAT scan suggested 1 - a port site hernia in the right lateral sub-costal area ?2-possible herniation superior to the mesh in the midline and possible herniation in the left aspect lateral to the mesh and possible herniation between the 2 pieces of mesh located in the midline at the umbilicus in the upper ?abdominal area. ? The patient notes questionable symptoms of bowel obstruction and notes nausea or vomiting. ?She presented to [facility] emergency department on January 01, 2019. ?Plain x-rays demonstrated no true signs of bowel obstruction. ? Rebeka was referred for evaluation and treatment. ??She states she has relatively chronic pain in the left upper quadrant. ?She questions whether this could be related to her mesh. ?The patient states she is completely quit smoking and he has used no nicotine products since 2017. should before that noted appendectomy, section, cholecystectomy, and tubal ligation. She had presented to Hospital with abdominal pain and bowel obstructive type symptoms. she was transferred to [facility]. she was taken for splitter laparotomy underwent lysis of adhesions on June 10, 2019. The patient was found a previous Blanca-en-Y reconstruction that she apparently denied previous gastric surgery. She was noted to have adhesions and was felt to be possibly taking one of the loops. The previously placed mesh was felt to be poorly incorporated and was removed. After extensive lysis of adhesions, her incision was closed in a primary fashion. the patient noted significant incisional discomfort since surgery. She noted discomfort and redness of her incision and decreased urine output some nausea and poor appetite. She presented to [facility] emergency department. She was found to have a temperature of 99 3. She was tachycardic hernia 136. Was elevated at 3.4 CT scan was obtained of the abdomen pelvis which demonstrated postsurgical inflammatory changes and there was felt to be likely a subcutaneous collection in the lower abdominal incision. This was partially opened the emergency department by Dr. Castillo returning some pus. This was cultured. The patient was given Zosyn and vancomycin. Gram stain of the wound culture returned as 1+ gram-positive cocci. The patient also noted looser stools before presenting to [facility]. He has not had diarrhea since admission to the hospital. with hydration, the patient's lactic acid level has normalized. Her white blood cell count is also decreased this morning. Past Medical History Past Medical History (Chronic Problems): Chronic Problems (Last Reviewed 10/10/18 @ 02:33 by Alan Torres MD) Anxiety and depression (Chronic) Morbid obesity (Chronic) History of anxiety disorder (Chronic) GERD (gastroesophageal reflux disease) (Chronic) Medical History: Medical History (Last Reviewed 10/10/18 @ 02:33 by Alan Torres MD) History of anxiety disorder (Chronic) Z86.59 GERD (gastroesophageal reflux disease) (Chronic) K21.9 Partial small bowel obstruction (Resolved) Vomiting (Resolved) R11.10 Allergies ketorolac tromethamine [From Toradol] Allergy (Verified 06/19/19 18:10) Shortness of breath ondansetron HCl [From Zofran] Allergy (Verified 06/19/19 18:10) Shortness of breath Home Medications: Ambulatory Orders Medication Instructions Recorded NK 06/19/19 Surgical History: Surgical History (Last Reviewed 10/10/18 @ 02:33 by Alan Torres MD) Recurrent ventral hernia with incarceration (Resolved) K43.0 Surgical History: appendectomy, cholecystectomy, herniorrhaphy - x6. Patient reported that a mass was removed in her left lower quadrant. She reported that after she had an infection at the site where the mass was removed for which reason she had another surgery and then a wound VAC was placed., - - 3- sections, ventral and incisional hernia repairs with mesh x 6, cholecystectomy, appendectomy, tonsillectomy, recent exploratory laparotomy with lysis of adhesions and possible mesh removal. 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 Smoking Status: Current some day smoker Tobacco Use: Cigarettes Alcohol: Occasional Drugs: Marijuana - Patient smokes cannabis 1-2 times monthly. - *Family History Maternal History Items: Diabetes, Heart Disease, Hypertension, Stroke Paternal History Items: Cancer - Colon, Diabetes, Heart Disease, Hypertension Review of Systems Constitutional: Reports: Anorexia, Chills, Fever, Malaise, Fatigue. Denies: Weight Change HEENT: Denies: Head Aches, Sinus Congestion, Sinus Drainage Cardiovascular: Denies: Chest Pain, Palpitations Respiratory: Denies: Cough, Shortness of breath at rest, Sputum production Gastrointestinal: Reports: Abdominal Pain. Denies: Nausea, Vomiting Genitourinary: Denies: Dysuria Musculoskeletal: Denies: Joint Pain, Joint Tenderness Skin: Denies: Rash, Wounds Neurological: Denies: Numbness, Tingling, Focal weakness Psychiatric: Denies: Anxiety, Depression, Homicidal Ideations, Suicidal Ideations Hematologic/ Lymphatic: Denies: Easy Bruising, Easy Bleeding VTE Information - Inpt Only VTE Present on Admission: No VTE Mechan Device Prophylaxis: SCD's VTE Pharm Prophylaxis ordered?: Yes Patient Problems: Active and Suspected Problems (Last Reviewed 10/10/18 @ 02:33 by Alan Torres MD) Severe sepsis (Acute) Cellulitis, abdominal wall (Acute) Sinus tachycardia by electrocardiogram (Acute) JAGJIT (obstructive sleep apnea) (Suspected) Elevated BP without diagnosis of hypertension (Acute) - Physical Exam General: Alert, Oriented x3, Cooperative Lungs: Clear to auscultation, Normal air movement Cardiovascular: Regular rate, No murmurs Abdomen: Bowel Sounds Present, Soft, Non Tender, - - erythema - wound below site of removed staple. Lower half of wound shilpa removed, wound further opened with prurlent drainage. packed Vital Signs Temp Pulse Resp BP Pulse Ox 98.5 F 91 18 118/59 L 98 06/20/19 02:44 06/20/19 03:05 06/20/19 02:44 06/20/19 02:44 06/20/19 02:44 Oxygen Delivery Method Room Air Weight: 139.2 kg Body Mass Index (BMI) 51.0 Finger Stick Blood Glucose 109 Intake and Output for Last 24 Hours 06/18/19 06/19/19 06/20/19 23:59 23:59 23:59 Intake Total 1640 / 1640 1233.33 / 1233.33 Balance 1640 / 1640 1233.33 / 1233.33 Laboratory Tests Past 24 Hrs 06/19/19 06/19/19 06/19/19 18:45 18:45 18:45 WBC 16.3 H RBC 4.45 Hgb 13.6 Hct 40.8 MCV 91.7 MCH 30.6 MCHC 33.3 RDW Std Deviation 40.9 RDW Coeff of Juan 12.2 Plt Count 347 MPV 8.7 Immature Gran % (Auto) 2.000 H Neut % (Auto) 74.0 H Lymph % (Auto) 15.0 L Walsh % (Auto) 6.4 Eos % (Auto) 2.2 Baso % (Auto) 0.4 Absolute Neuts (auto) 12.1 H Absolute Lymphs (auto) 2.45 Nucleated RBC % 0 Sodium 139 Potassium 3.4 L Chloride 107 Carbon Dioxide 23.0 Anion Gap 9 BUN 8 Creatinine 0.68 Estim Creat Clear Calc 105.89 Est GFR (MDRD) Af Amer 128 Est GFR (MDRD) Non-Af 106 BUN/Creatinine Ratio 11.8 Glucose 120 H Lactic Acid 3.4 H Calcium 9.5 Magnesium Urine Color Urine Clarity Urine pH Ur Specific Hughes Urine Protein Urine Glucose (UA) Urine Ketones Urine Occult Blood Urine Nitrite Urine Bilirubin Urine Urobilinogen Ur Leukocyte Esterase Urine RBC Urine WBC Ur Squamous Epith Cells Amorphous Sediment Urine Bacteria Urine Mucus S.aureus Protein A PCR MRSA (PCR) 06/19/19 06/19/19 06/19/19 21:10 21:51 23:18 WBC RBC Hgb Hct MCV MCH MCHC RDW Std Deviation RDW Coeff of Juan Plt Count MPV Immature Gran % (Auto) Neut % (Auto) Lymph % (Auto) Walsh % (Auto) Eos % (Auto) Baso % (Auto) Absolute Neuts (auto) Absolute Lymphs (auto) Nucleated RBC % Sodium Potassium Chloride Carbon Dioxide Anion Gap BUN Creatinine Estim Creat Clear Calc Est GFR (MDRD) Af Amer Est GFR (MDRD) Non-Af BUN/Creatinine Ratio Glucose Lactic Acid 2.6 H Calcium Magnesium 1.9 Urine Color Yellow Urine Clarity Sl. Cloudy Urine pH 5.0 Ur Specific Hughes 1.015 Urine Protein 100 H Urine Glucose (UA) Normal Urine Ketones Negative Urine Occult Blood 250 H Urine Nitrite Negative Urine Bilirubin Negative Urine Urobilinogen Normal Ur Leukocyte Esterase 100 H Urine RBC 5-10 SEEN Urine WBC 10-25 SEEN Ur Squamous Epith Cells 10-25 SEEN Amorphous Sediment 1+ URATE Urine Bacteria RARE Urine Mucus 0 SEEN S.aureus Protein A PCR MRSA (PCR) 06/20/19 06/20/19 06/20/19 00:10 05:00 05:00 WBC 12.5 H RBC 3.79 L Hgb 11.7 L Hct 35.7 L MCV 94.2 MCH 30.9 MCHC 32.8 RDW Std Deviation 43.2 RDW Coeff of Juan 12.4 Plt Count 279 MPV 8.6 Immature Gran % (Auto) 1.800 H Neut % (Auto) 67.2 Lymph % (Auto) 20.7 Walsh % (Auto) 5.5 Eos % (Auto) 4.2 Baso % (Auto) 0.6 Absolute Neuts (auto) 8.4 H Absolute Lymphs (auto) 2.58 Nucleated RBC % 0 Sodium 141 Potassium 3.9 Chloride 110 H Carbon Dioxide 22.0 Anion Gap 9 BUN 7 Creatinine 0.58 Estim Creat Clear Calc 124.14 Est GFR (MDRD) Af Amer 152 Est GFR (MDRD) Non-Af 126 BUN/Creatinine Ratio 12.0 Glucose 106 Lactic Acid Calcium 8.2 L Magnesium Urine Color Urine Clarity Urine pH Ur Specific Hughes Urine Protein Urine Glucose (UA) Urine Ketones Urine Occult Blood Urine Nitrite Urine Bilirubin Urine Urobilinogen Ur Leukocyte Esterase Urine RBC Urine WBC Ur Squamous Epith Cells Amorphous Sediment Urine Bacteria Urine Mucus S.aureus Protein A PCR NEGATIVE MRSA (PCR) Negative 06/20/19 05:00 WBC RBC Hgb Hct MCV MCH MCHC RDW Std Deviation RDW Coeff of Juan Plt Count MPV Immature Gran % (Auto) Neut % (Auto) Lymph % (Auto) Walsh % (Auto) Eos % (Auto) Baso % (Auto) Absolute Neuts (auto) Absolute Lymphs (auto) Nucleated RBC % Sodium Potassium Chloride Carbon Dioxide Anion Gap BUN Creatinine Estim Creat Clear Calc Est GFR (MDRD) Af Amer Est GFR (MDRD) Non-Af BUN/Creatinine Ratio Glucose Lactic Acid 2.0 Calcium Magnesium Urine Color Urine Clarity Urine pH Ur Specific Hughes Urine Protein Urine Glucose (UA) Urine Ketones Urine Occult Blood Urine Nitrite Urine Bilirubin Urine Urobilinogen Ur Leukocyte Esterase Urine RBC Urine WBC Ur Squamous Epith Cells Amorphous Sediment Urine Bacteria Urine Mucus S.aureus Protein A PCR MRSA (PCR) Assessment/Plan All Active Problems (Last Reviewed 10/10/18 @ 02:33 by Alan Torres MD) Severe sepsis (Acute) Cellulitis, abdominal wall (Acute) Sinus tachycardia by electrocardiogram (Acute) Elevated BP without diagnosis of hypertension (Acute) Intractable abdominal pain (Acute) Partial small bowel obstruction (Resolved) Vomiting (Resolved) Recurrent ventral hernia with incarceration (Resolved) Post op wound infection, Maykel pulseless of adhesions with removal of mesh. 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 I plan to continue her antibiotics pending culture results. I opened up her wound further and will now plan for wet to dry dressing BID, await culturesfor stool/C. difficile given her looser stools and recent antibiotic treatment. we will encourage ambulation. We will start Lovenox. Pain management as necessary. We'll start clear liquids.
[2019-06-20] MEDS: 0.9% Normal Saline 1,000 ML 150 ML IV ×2 (08:11→17:40)
[2019-06-20 09:08] LABS: Reflex Lactate? Y
[2019-06-20] MEDS: oxyCODONE 5 MG Tablet 10 MG PO ×2 (09:57→22:17)
[2019-06-20 10:02] LABS: Lactic Acid 1.8 mmol/L (0.4-2.0)
--- NOTE | 2019-06-20 10:55 | PN_ITS ---
Patient Problems: Active and Suspected Problems (Last Reviewed 10/10/18 @ 02:33 by Alan Torres MD) Severe sepsis (Acute) Cellulitis, abdominal wall (Acute) Sinus tachycardia by electrocardiogram (Acute) JAGJIT (obstructive sleep apnea) (Suspected) Elevated BP without diagnosis of hypertension (Acute) Subjective: Patient seen and examined. She was admitted with a complaint of fever and chills as well as increased pain at the site of her surgical site with some purulent discharge. Patient had surgery at [facility] a week ago for small bowel obstruction and was subsequently discharged home. Symptoms as mentioned above developed a few days before admission. She was found to have elevated white cell count of 16.3 with lactic acid of 3.4. CT of the pelvis showed postsurgical and inflammatory changes within the transverse rectus sheath bilaterally greater on the right as well as in the fat of the lower abdominal anterior pelvic cavity but no well-defined abscess or collection. He was started on IV vancomycin and Zosyn. Patient seen and examined this morning. She was quite tearful because of how sick she is pain. She is afebrile resolved. She denies any chest pain, abdominal pain or diarrhea vomiting. Some shilpa were removed by general surgery yesterday and she states that improve the pain due to release of pus. Review of systems is otherwise negative. Labs and vitals reviewed. Vitals/I&O's: Vital Signs Temp Pulse Resp BP Pulse Ox 97.9 F 84 18 150/69 H 98 06/20/19 09:54 06/20/19 09:54 06/20/19 09:54 06/20/19 09:54 06/20/19 09:54 Oxygen Delivery Method Room Air Weight: 306 lb 14.135 oz Body Mass Index (BMI) 51.0 Finger Stick Blood Glucose 109 Intake and Output for Last 24 Hours 06/18/19 06/19/19 06/20/19 23:59 23:59 23:59 Intake Total 1640 / 1640 Balance 1640 / 1640 General: Alert, Oriented x3, Cooperative HEENT: Atraumatic, PERRLA, EOMI, Normocephalic Oral: Moist Mucosa Neck: Supple, No JVD, Negative Carotid Bruits Lungs: Clear to auscultation, Normal air movement, No rhonchi, No wheeze, No rales Cardiovascular: Regular rate, Regular Rhythm, Normal S1, Normal S2, No murmurs Abdomen: Bowel Sounds Present, Soft, Non Tender Extremities: No edema, Capillary Refill Less than 3 Seconds Skin: - - clean dressing over lower abdomen; has some shilpa removed in lower abdomen Musculoskeletal: No Tenderness to Palpation of Joints or Extremities Lymphatic: No Cervical, Supraclavicular, or Inguinal Adenopathy Neurological: Cranial nerves II-XII grossly intact, Neuro grossly intact, Motor Exam 5/5 strength throughout Psych/Mental Status: Anxious - tearful, Alert and oriented to time, place, person, mood and affect Microbiology Past 72 Hours 06/19/19 18:35 Wound - Abdominal Gram Stain - Final Laboratory Results 06/19/19 18:45: WBC 16.3 H, RBC 4.45, Hgb 13.6, Hct 40.8, MCV 91.7, MCH 30.6, MCHC 33.3, RDW Std Deviation 40.9, RDW Coeff of Juan 12.2, Plt Count 347, MPV 8.7, Immature Gran % (Auto) 2.000 H, Neut % (Auto) 74.0 H, Lymph % (Auto) 15.0 L , Carson % (Auto) 6.4, Eos % (Auto) 2.2, Baso % (Auto) 0.4, Absolute Neuts (auto) 12.1 H, Absolute Lymphs (auto) 2.45, Nucleated RBC % 0 06/19/19 18:45: Sodium 139, Potassium 3.4 L, Chloride 107, Carbon Dioxide 23.0, Anion Gap 9, BUN 8, Creatinine 0.68, Estim Creat Clear Calc 105.89, Est GFR (MDRD) Af Amer 128, Est GFR (MDRD) Non-Af 106, BUN/Creatinine Ratio 11.8, Glucose 120 H, Calcium 9.5 06/19/19 18:45: Lactic Acid 3.4 H 06/19/19 21:10: Urine Color Yellow, Urine Clarity Sl. Cloudy, Urine pH 5.0, Ur Specific [place] 1.015, Urine Protein 100 H, Urine Glucose (UA) Normal, Urine Ketones Negative, Urine Occult Blood 250 H, Urine Nitrite Negative, Urine Bilirubin Negative, Urine Urobilinogen Normal, Ur Leukocyte Esterase 100 H, Urine RBC 5-10 SEEN, Urine WBC 10-25 SEEN, Ur Squamous Epith Cells 10-25 SEEN, Amorphous Sediment 1+ URATE, Urine Bacteria RARE, Urine Mucus 0 SEEN 06/19/19 21:51: Magnesium 1.9 06/19/19 23:18: Lactic Acid 2.6 H 06/20/19 00:10: S.aureus Protein A PCR NEGATIVE, MRSA (PCR) Negative 06/20/19 05:00: WBC 12.5 H, RBC 3.79 L, Hgb 11.7 L, Hct 35.7 L, MCV 94.2, MCH 30.9, MCHC 32.8, RDW Std Deviation 43.2, RDW Coeff of Juan 12.4, Plt Count 279, MPV 8.6, Immature Gran % (Auto) 1.800 H, Neut % (Auto) 67.2, Lymph % (Auto) 20.7, Carson % (Auto) 5.5, Eos % (Auto) 4.2, Baso % (Auto) 0.6, Absolute Neuts (auto) 8.4 H, Absolute Lymphs (auto) 2.58, Nucleated RBC % 0 06/20/19 05:00: Sodium 141, Potassium 3.9, Chloride 110 H, Carbon Dioxide 22.0, Anion Gap 9, BUN 7, Creatinine 0.58, Estim Creat Clear Calc 124.14, Est GFR (MDRD) Af Amer 152, Est GFR (MDRD) Non-Af 126, BUN/Creatinine Ratio 12.0, Glucose 106, Calcium 8.2 L 06/20/19 05:00: Lactic Acid 2.0 06/20/19 09:25: Lactic Acid 1.[address] 06/19/19 18:43 IMPRESSION: Postsurgical and possible inflammatory changes within the transverse rectus sheath bilaterally greater on the right as well as the fat in the lower anterior abdominal pelvic cavity as well as the subcutaneous fat of the anterior abdominal and pelvic rabago but no well-defined abscess collection identified. No evidence for abscess within the abdominal or pelvic cavity Electronically Signed: Jose Ayala MD at 20:08 EDT , Service support , Chest X-Ray 06/19/19 19:40 IMPRESSION: No acute cardiopulmonary pathology Electronically Signed: Jose Ayala MD at 20:02 EDT , Service support , Current Medications Acetaminophen (Tylenol) 650 mg PO Q6H PRN PRN PRN Reason: Non-cardiac pain (mod-severe) Albuterol Sulfate (Ventolin Aerosols) 2.5 mg INHALATION Q2H PRN PRN PRN Reason: dyspnea, wheezing Hydralazine HCl (Apresoline Iv) 10 mg IV Q4H PRN PRN PRN Reason: SBP > 160 Hydromorphone HCl (Dilaudid Inj) 1 mg IV Q3H PRN PRN PRN Reason: SEVERE PAIN () Last Admin: 06/20/19 07:34 Dose: 1 mg Documented by: Sodium Chloride () 1,000 mls @ 150 mls/hr IV .[id number] REPLACED BY [facility] Last Admin: 06/20/19 08:11 Dose: 150 mls/hr Documented by: Piperacillin Sod/Tazobactam (Sod 3.375 gm/ Sodium Chloride) 50 mls @ 12.5 mls/hr IV Q8 REPLACED BY [facility] Last Infusion: 06/20/19 09:24 Dose: Infused Documented by: Vancomycin IV Pharmacy to Dose (1 ea/ Sodium Chloride) 500 mls @ 250 mls/hr IV PRN PRN; Protocol PRN Reason: Rx to Dose Famotidine 20 mg/ Sodium (Chloride) 10 mls @ 300 mls/hr IV Q12 REPLACED BY [facility] Last Infusion: 06/20/19 10:02 Dose: Infused Documented by: Vancomycin HCl 1,500 mg/ (Sodium Chloride) 530 mls @ 250 mls/hr IV Q8H REPLACED BY [facility] Last Infusion: 06/20/19 06:41 Dose: Infused Documented by: Sodium Chloride () 250 mls @ 15 mls/hr IV .[id number] PRN PRN Reason: SALINE FLUSH Last Infusion: 06/20/19 05:24 Dose: 0 mls/hr Documented by: Nicotine (Nicoderm Cq (Pbkc)) 14 mg TRANSDERM. DAILY REPLACED BY [facility] Last Admin: 06/20/19 10:00 Dose: Not Given Documented by: Oxycodone HCl (Oxyir) 10 mg PO Q4H PRN PRN PRN Reason: SEVERE PAIN (6-10/10) Last Admin: 06/20/19 09:57 Dose: 10 mg Documented by: Promethazine HCl (Phenergan) 6.25 mg IV Q4H PRN PRN PRN Reason: NAUSEA/VOMITING Last Admin: 06/20/19 08:13 Dose: 6.25 mg Documented by: Sodium Chloride () 10 - 40 ml IV UD PRN PRN Reason: SALINE FLUSH Last Admin: 06/20/19 08:13 Dose: 10 ml Documented by: Medical Necessity - Tobacco Use Smoking Status: Current some day smoker Tobacco Use: Cigarettes Assessment/Plan All Active Problems (Last Reviewed 10/10/18 @ 02:33 by Alan Torres MD) Severe sepsis (Acute) Cellulitis, abdominal wall (Acute) Sinus tachycardia by electrocardiogram (Acute) Elevated BP without diagnosis of hypertension (Acute) Intractable abdominal pain (Acute) Partial small bowel obstruction (Resolved) Vomiting (Resolved) Recurrent ventral hernia with incarceration (Resolved) 1. Sepsis due to post operative surgical site infection * wbc has trended down to 12.5 today * SIRS criteria is now 1.4-leucocytosis * continue IV vancomycin and IV zosyn * blood nad wound cultures pending * wound culture gram stain showed 1+ bacteria, and 1+ wbcs. * general surgery on board * 2. Diarrhea: C diff pending. Hasnt had any diarrhea since admission. Will monitor 3. Elevated BP: * no diagnosis of hypertension. * BP however came down to normal and pain was better improved. BP was 150/69 this morning the patient was quite agitated and this may be contributing to it. * Continue IV hydralazine PRN. To follow-up with PCP on outpatient basis to determine need for starting oral BP meds. * 4. Small bowel obstruction status post surgery: Stable. General surgery on board. 5. SUper morbid obesity: BMI is >50. counseled on weight and lifestyle changes 6. Suspected JAGJIT: to follow up with pulmonology on outpatient basis for sleep studies 7. Hypokalemia: Resolved. 8. Nicotine dependence: Counseled on cessation. 9.GERD: on famotidine History of anxiety and depression: currently not on any pharmacological meds. To follow up with PCP on outpatient basis for this to be addressed DVT prophylaxis: lovenox Code Visit Inpatient E&M: [id number] [facility] L3
--- NOTE | 2019-06-20 11:43 | CASEMGMT ---
RN CM Assessment Presentation: Abd wall cellulitis, severe sepsis. Recent (1 week ago) history of abd surgery @ [facility] Intro role of CM and purpose of RN CM assessment to patient in room. Pt is awake, alert and able to participate in assessment. Demographics, PCP and Pharmacy verified. Pt states she is frustrated with being rehospitalized after her surgery, and feels this is worse than the surgery was. RN CM offered support and explanation of plan of care including continuing IVF, IV antibiotics and awaiting culture results. Discussed CM role for dc planning and assistance if dc needs arise. Wound is being packed at this time, and home antibiotics have not been determined. Pt states her mother can assist with any needs for home including assisting with IV antibiotics if this would be ordered. PCP: Dr. Barron Specialists: Dr. Yadav Preferred Pharmacy: Pt would like to have scripts sent to [facility] Insurance: [employer] Comm plan Prescription Benefit: yes LNOK: Mother/Father Living Arrangements: Pt lives independently in mobile home with her mother, father and daughter. States is generally independentl with ADL's. Mother is able to assist during this post-op time with any care needs. Transportation: drives, or her mother can drive DME: none HHC: none Patient DC goals: Home on discharge DC PLAN: anticipate home on dc. Cultures pending- CM available to assist with dc needs if they arise. Mireille XIONG RN ACM
[2019-06-20] MEDS: Acetaminophen 325 MG Tablet 650 MG PO (12:03)
--- NOTE | 2019-06-20 13:52 | EKG12_ITS ---
Test Reason : Blood Pressure : / mmHG Vent. Rate : 089 BPM Atrial Rate : 089 BPM P-R Int : 130 ms QRS Dur : 092 ms QT Int : 378 ms P-R-T Axes : 250 068 -04 degrees QTc Int : 459 ms Unusal P axis and short MT, probable ectopic atrial rhythm Abnormal QRS-T angle, consider primary T wave abnormality Abnormal ECG When compared with ECG of 19-JUN-2019 18:56, MANUAL COMPARISON REQUIRED, DATA IS UNCONFIRMED Confirmed by YVAN DODD, CRISSY ([id number]), photographic editor KEZIA BARKER ([id number]) on 06/25/2019 4:04:09 PM Referred By: ALISSA Confirmed By:HANS SANTORO MD
--- NOTE | 2019-06-20 14:54 | NURSING ---
wound photo: mid lower abdomen
[2019-06-20] MEDS: LORazepam 1 MG Tablet PO (15:13)
[2019-06-20 20:36] LABS: Vancomycin, Trough Level 11.4 ug/mL (5.0-15.0)
[2019-06-21] VITALS (10 sets, daily range): BP systolic 143–167; BP diastolic 84–92; PULSE 77–95; RESP 16–18; TEMP 36.5–36.9; O2SAT 97–98
--- NOTE | 2019-06-21 00:30 | NURSING ---
[employer]UR[employer] TEACHER answered call light for pt's request for pain meds. Upon arrival to pt's room with Dilaudid, pt found resting in bed, snoring. Pt not awaken at this time for medication administration. Will continue to monitor.
--- NOTE | 2019-06-21 00:38 | PCM.RX.CS ---
Consult Pharmacy has been consulted to manage selected antiobiotic: Vancomycin Type of Consult: Follow-up Suspected Infection: Sepsis Labs: Sodium 141 mmol/L (136-145) 06/20/19 05:00 Potassium 3.9 mmol/L (3.5-5.1) 06/20/19 05:00 Chloride 110 mmol/L (98-107) H 06/20/19 05:00 Carbon Dioxide 22.0 mmol/L (21.0-32.0) 06/20/19 05:00 Anion Gap 9 (5-15) 06/20/19 05:00 BUN 7 mg/dL (7-18) 06/20/19 05:00 Creatinine 0.58 mg/dL (0.55-1.02) 06/20/19 05:00 Est GFR (MDRD) Af Amer 152 mL/min (>60) 06/20/19 05:00 Est GFR (MDRD) Non-Af 126 mL/min (>60) 06/20/19 05:00 BUN/Creatinine Ratio 12.0 RATIO (10-20) 06/20/19 05:00 Glucose 106 mg/dL (74-106) 06/20/19 05:00 Vancomycin Trough 11.4 ug/mL (5.0-15.0) 06/20/19 20:10 Microbiology: Microbiology 06/20/19 14:30 Stool C. difficile DNA Amplification - Final 06/19/19 18:35 Wound - Abdominal Gram Stain - Final Goal Trough: 15-20 mcg/mL Pharmacy Plan for Drug Dosing: Pharmacy Service will continue to monitor and adjust dosing as required. Medications Vancomycin HCl 2,000 mg/ (Sodium Chloride) 540 mls @ 250 mls/hr IV Q8H JUAN TROUGH 11.4 NEW DOSE 2000MG Q8H Follow-Up Labs: Trough Vancomycin Labs to be done on [date and time ordered]: 06/22 @ 4734
[2019-06-21] MEDS: HYDROmorphone 1 MG/ML Syringe IV ×7 (02:23→22:11)
[2019-06-21] MEDS: 0.9% NaCl Peripheral Flush Adult/Peds IV ×3 (02:32→21:12)
[2019-06-21] MEDS: proMETHazine 25 MG/ML Syringe 6.25 MG IV ×3 (02:32→18:08)
[2019-06-21] MEDS: 0.9% Normal Saline 1,000 ML 150 ML IV ×3 (02:33→22:25)
[2019-06-21] MEDS: oxyCODONE 5 MG Tablet 10 MG PO ×3 (04:03→21:11)
[2019-06-21] MEDS: Enoxaparin 40 MG/0.4 ML Syringe SC (05:46)
[2019-06-21 06:21] LABS: Absolute Lymphocyte Count 1.67 X10^3/uL (0.83-4.51); Absolute Neutrophil Count 7.4 X10^3/uL (2.0-7.7); Basophil# 0.03 X10^3/uL; Basophil% 0.3 % (0-1); Eosinophils% 5.8 % (0-5); Hematocrit 36.7 % (37-47); Hemoglobin 12.1 g/dL (12.0-15.0); Lymphocyte # 1.67 X10^3/ul (4.0); Lymphocyte % 16.1 % (19-41); Mean Corpuscular Hgb 30.4 pg (27.0-32.0); Mean Corpuscular Volume 92.2 fL (81-99); Mean Platelet Vol. 8.6 fl (6.2-12.0); Monocyte# 0.51 X10^3/uL; Monocyte% 4.9 % (0-10); NRBC Flagged by Analyzer 0 % (0-5); Neutrophil # 7.41 X10^3/uL (2.7-7.7); Neutrophil % 71.6 % (47-70); Platelet Count 259 K/mm3 (150-450); RBC Distribution Width CV 11.9 % (11.6-14.6); RBC Distribution Width SD 40.3 fl (35.1-43.9); Red Blood Count 3.98 M/mm3 (4.2-5.4); White Blood Count 10.4 K/mm3 (4.4-11.0)
[2019-06-21 06:34] LABS: Anion Gap 8 (5-15); BUN 3 mg/dL (7-18); BUN/Creat Ratio 5.8 RATIO (10-20); Calcium,Total 8.2 mg/dL (8.5-10.1); Chloride 109 mmol/L (98-107); Creatinine, Serum 0.52 mg/dL (0.55-1.02); EST Glomerular Filtration Rate 145 mL/min (>60); Est Glom Filt Rate - Afr Amer 175 mL/min (>60); Estimated Creatinine Clearance 138.47 ml/min; Glucose 122 mg/dL (74-106); Potassium 3.7 mmol/L (3.5-5.1); Sodium Level 141 mmol/L (136-145)
--- NOTE | 2019-06-21 10:16 | PN_ITS ---
Patient Problems: Active and Suspected Problems (Last Reviewed 10/10/18 @ 02:33 by Alan Torres MD) Severe sepsis (Acute) Cellulitis, abdominal wall (Acute) Sinus tachycardia by electrocardiogram (Acute) JAGJIT (obstructive sleep apnea) (Suspected) Elevated BP without diagnosis of hypertension (Acute) Subjective: Patient seen and examined. She feels better today. Pain is much better, and the numbness and tingling in her LUE she had yesterday has resolved. She thinks its due to her sleep position, as she has pain in the left side of her neck. Review of systems otherwise negative. Patient wishes to advance to full liquid diet, if possible. Vitals/I&O's: Vital Signs Temp Pulse Resp BP Pulse Ox 98.5 F 82 18 154/92 H 98 06/21/19 09:00 06/21/19 09:00 06/21/19 09:00 06/21/19 09:00 06/21/19 09:00 Oxygen Delivery Method Room Air Weight: 306 lb 14.135 oz Body Mass Index (BMI) 51.0 Finger Stick Blood Glucose 109 Intake and Output for Last 24 Hours 06/19/19 06/20/19 06/21/19 23:59 23:59 23:59 Intake Total 1640 / 1640 5240.83 / 5620.83 2136.75 / 2136.75 Balance 1640 / 1640 5240.83 / 5620.83 2136.75 / 2136.75 General: Alert, Oriented x3, Cooperative HEENT: Atraumatic, PERRLA, EOMI, Normocephalic Oral: Moist Mucosa Neck: Supple, No JVD, Negative Carotid Bruits Lungs: Clear to auscultation, Normal air movement, No rhonchi, No wheeze, No rales Cardiovascular: Regular rate, Regular Rhythm, Normal S1, Normal S2, No murmurs Abdomen: Bowel Sounds Present, Soft, Non Tender Extremities: No edema, Capillary Refill Less than 3 Seconds Skin: - - clean dressing over lower abdomen; has some shilpa removed in lower abdomen Musculoskeletal: No Tenderness to Palpation of Joints or Extremities Lymphatic: No Cervical, Supraclavicular, or Inguinal Adenopathy Neurological: Cranial nerves II-XII grossly intact, Neuro grossly intact, Motor Exam 5/5 strength throughout Psych/Mental Status: Anxious - tearful, Alert and oriented to time, place, person, mood and affect Microbiology Past 72 Hours 06/20/19 14:30 Stool C. difficile DNA Amplification - Final 06/19/19 18:35 Wound - Abdominal Gram Stain - Final Laboratory Results 06/20/19 14:20: Troponin I < 0.015 06/20/19 16:38: Troponin I < 0.015 06/20/19 20:10: Vancomycin Trough 11.4 06/20/19 20:10: Troponin I < 0.015 06/21/19 06:05: WBC 10.4, RBC 3.98 L, Hgb 12.1, Hct 36.7 L, MCV 92.2, MCH 30.4, MCHC 33.0, RDW Std Deviation 40.3, RDW Coeff of Juan 11.9, Plt Count 259, MPV 8.6, Immature Gran % (Auto) 1.300 H, Neut % (Auto) 71.6 H, Lymph % (Auto) 16.1 L , Wayne % (Auto) 4.9, Eos % (Auto) 5.8 H, Baso % (Auto) 0.3, Absolute Neuts (auto) 7.4, Absolute Lymphs (auto) 1.67, Nucleated RBC % 0 06/21/19 06:05: Sodium 141, Potassium 3.7, Chloride 109 H, Carbon Dioxide 24.0, Anion Gap 8, BUN 3 L, Creatinine 0.52 L, Estim Creat Clear Calc 138.47, Est GFR (MDRD) Af Amer 175, Est GFR (MDRD) Non-Af 145, BUN/Creatinine Ratio 5.8 L, Gl ucose 122 H, Calcium 8.2 L Diagnostic Data Pelvis CT 06/19/19 18:43 IMPRESSION: Postsurgical and possible inflammatory changes within the transverse rectus sheath bilaterally greater on the right as well as the fat in the lower anterior abdominal pelvic cavity as well as the subcutaneous fat of the anterior abdominal and pelvic rabago but no well-defined abscess collection identified. No evidence for abscess within the abdominal or pelvic cavity Electronically Signed: Jose Ayala MD at 20:08 EDT , Service support , Chest X-Ray 06/19/19 19:40 IMPRESSION: No acute cardiopulmonary pathology Electronically Signed: Jose Ayala MD at 20:02 EDT , Service support , Current Medications Acetaminophen (Tylenol) 650 mg PO Q6H PRN PRN PRN Reason: Non-cardiac pain (mod-severe) Last Admin: 06/20/19 12:03 Dose: 650 mg Documented by: Albuterol Sulfate (Ventolin Aerosols) 2.5 mg INHALATION Q2H PRN PRN PRN Reason: dyspnea, wheezing Enoxaparin Sodium (Lovenox) 40 mg SC DAILY@0600 JUAN Last Admin: 06/21/19 05:46 Dose: 40 mg Documented by: Hydralazine HCl (Apresoline Iv) 10 mg IV Q4H PRN PRN PRN Reason: SBP > 160 Hydromorphone HCl (Dilaudid Inj) 1 mg IV Q3H PRN PRN PRN Reason: SEVERE PAIN (-07/19) Last Admin: 06/21/19 09:03 Dose: 1 mg Documented by: Sodium Chloride () 1,000 mls @ 150 mls/hr IV .[id number] JUAN Last Infusion: 06/21/19 06:45 Dose: 150 mls/hr Documented by: Piperacillin Sod/Tazobactam (Sod 3.375 gm/ Sodium Chloride) 50 mls @ 12.5 mls/hr IV Q8 JUAN Last Infusion: 06/21/19 09:50 Dose: Infused Documented by: Vancomycin IV Pharmacy to Dose (1 ea/ Sodium Chloride) 500 mls @ 250 mls/hr IV PRN PRN; Protocol PRN Reason: Rx to Dose Famotidine 20 mg/ Sodium (Chloride) 10 mls @ 300 mls/hr IV Q12 JUAN Last Infusion: 06/21/19 09:06 Dose: Infused Documented by: Sodium Chloride () 250 mls @ 15 mls/hr IV .[id number] PRN PRN Reason: SALINE FLUSH Last Infusion: 06/21/19 05:47 Dose: 0 mls/hr Documented by: Vancomycin HCl 2,000 mg/ (Sodium Chloride) 540 mls @ 250 mls/hr IV Q8H JUAN Last Infusion: 06/21/19 06:45 Dose: Infused Documented by: Nicotine (Nicoderm Cq (Pbkc)) 14 mg TRANSDERM. DAILY JUAN Last Admin: 06/21/19 09:05 Dose: Not Given Documented by: Nutritional Formula (Lactose Free) (Ensure Clear) 120 ml PO 4X/DAY UJAN Last Admin: 06/21/19 09:05 Dose: Not Given Documented by: Oxycodone HCl (Oxyir) 10 mg PO Q4H PRN PRN PRN Reason: SEVERE PAIN (6-10/10) Last Admin: 06/21/19 04:03 Dose: 10 mg Documented by: Promethazine HCl (Phenergan) 6.25 mg IV Q4H PRN PRN PRN Reason: NAUSEA/VOMITING Last Admin: 06/21/19 02:32 Dose: 6.25 mg Documented by: Sodium Chloride () 10 - 40 ml IV UD PRN PRN Reason: SALINE FLUSH Last Admin: 06/21/19 05:47 Dose: 10 ml Documented by: Medical Necessity - Tobacco Use Smoking Status: Current some day smoker Tobacco Use: Cigarettes Assessment/Plan All Active Problems (Last Reviewed 10/10/18 @ 02:33 by Alan Torres MD) Severe sepsis (Acute) Cellulitis, abdominal wall (Acute) Sinus tachycardia by electrocardiogram (Acute) Elevated BP without diagnosis of hypertension (Acute) Intractable abdominal pain (Acute) Partial small bowel obstruction (Resolved) Vomiting (Resolved) Recurrent ventral hernia with incarceration (Resolved) 1. Sepsis due to post operative surgical site infection * wbc has trended down to 10.4 today * SIRS criteria is now =0/4 * continue IV vancomycin and IV zosyn * blood add wound cultures pending * wound culture gram stain showed 1+ bacteria, and 1+ wbcs. * general surgery on board * 2. Diarrhea: C diff negative. Ddiarrhea has resolved. 3. Elevated BP: * no diagnosis of hypertension. * BP has been in 140s-150s systolic since yesterday. * on IV hydrfalazine prn. * will start PO amlodipine 5mg daily; to follow up with PCP on discharge. * 4. Small bowel obstruction status post surgery: Stable. General surgery on board. 5. Super morbid obesity: BMI is >50. counseled on weight and lifestyle changes 6. Suspected JAGJIT: to follow up with pulmonology on outpatient basis for sleep studies 7. Hypokalemia: Resolved. 8. Nicotine dependence: Counseled on cessation. 9.GERD: on famotidine History of anxiety and depression: currently not on any pharmacological treatment. To follow up with PCP on outpatient basis for this to be addressed DVT prophylaxis: jacquex Code Visit Inpatient E&M: 37497 Subs Hosp L2
--- NOTE | 2019-06-21 10:47 | NURSING ---
Nursing states that Dr Yadav had been in this am and changed dressing. plan to come back this afternoon to change the abdominal dressing. will discuss with patient.
--- NOTE | 2019-06-21 18:23 | PN.SURG_ITS ---
Patient Problems: Active and Suspected Problems (Last Reviewed 10/10/18 @ 02:33 by Alan Torres MD) Severe sepsis (Acute) Cellulitis, abdominal wall (Acute) Sinus tachycardia by electrocardiogram (Acute) JAGJIT (obstructive sleep apnea) (Suspected) Elevated BP without diagnosis of hypertension (Acute) Subjective: less pain at the incision site. Hungry, would like to advance diet. - Physical Exam General: Alert, Oriented x3, Cooperative Neck: Supple, No JVD, Negative Carotid Bruits Lungs: Clear to auscultation, Normal air movement Cardiovascular: Regular rate, No murmurs Abdomen: Bowel Sounds Present, Soft, Tender - open incision. Dressing was changed with scant drainage at the lower aspect of the incision. Some granulation tissue in the base. Overall decreased in erythema and induration after removing shilpa compared to yesterday. Vital Signs Temp Pulse Resp BP Pulse Ox 97.7 F L 90 16 147/84 H 97 06/21/19 15:00 06/21/19 15:23 06/21/19 15:00 06/21/19 15:00 06/21/19 15:00 Oxygen Delivery Method Room Air Weight: 139.2 kg Body Mass Index (BMI) 51.0 Finger Stick Blood Glucose 109 Intake and Output for Last 24 Hours 06/19/19 06/20/19 06/21/19 23:59 23:59 23:59 Intake Total 1640 / 1640 5240.83 / 5620.83 7619.25 / 7619.25 Balance 1640 / 1640 5240.83 / 5620.83 7619.25 / 7619.25 Microbiology Past 72 Hours 06/20/19 14:30 Enteric Bacteriology - Final Stool 06/19/19 18:35 Gram Stain - Final Wound - Abdominal Wound Culture - Preliminary Coag Negative Staph 06/20/19 14:30 C. difficile DNA Amplification - Final Stool Laboratory Tests Past 24 Hrs 06/20/19 06/20/19 06/21/19 20:10 20:10 06:05 WBC 10.4 RBC 3.98 L Hgb 12.1 Hct 36.7 L MCV 92.2 MCH 30.4 MCHC 33.0 RDW Std Deviation 40.3 RDW Coeff of Juan 11.9 Plt Count 259 MPV 8.6 Immature Gran % (Auto) 1.300 H Neut % (Auto) 71.6 H Lymph % (Auto) 16.1 L Charles % (Auto) 4.9 Eos % (Auto) 5.8 H Baso % (Auto) 0.3 Absolute Neuts (auto) 7.4 Absolute Lymphs (auto) 1.67 Nucleated RBC % 0 Sodium Potassium Chloride Carbon Dioxide Anion Gap BUN Creatinine Estim Creat Clear Calc Est GFR (MDRD) Af Amer Est GFR (MDRD) Non-Af BUN/Creatinine Ratio Glucose Calcium Troponin I < 0.015 Vancomycin Trough 11.4 06/21/19 06:05 WBC RBC Hgb Hct MCV MCH MCHC RDW Std Deviation RDW Coeff of Juan Plt Count MPV Immature Gran % (Auto) Neut % (Auto) Lymph % (Auto) Charles % (Auto) Eos % (Auto) Baso % (Auto) Absolute Neuts (auto) Absolute Lymphs (auto) Nucleated RBC % Sodium 141 Potassium 3.7 Chloride 109 H Carbon Dioxide 24.0 Anion Gap 8 BUN 3 L Creatinine 0.52 L Estim Creat Clear Calc 138.47 Est GFR (MDRD) Af Amer 175 Est GFR (MDRD) Non-Af 145 BUN/Creatinine Ratio 5.8 L Glucose 122 H Calcium 8.2 L Troponin I Vancomycin Trough Medical Necessity - Tobacco Use Smoking Status: Current some day smoker Tobacco Use: Cigarettes Assessment/Plan All Active Problems (Last Reviewed 10/10/18 @ 02:33 by Alan Torres MD) Severe sepsis (Acute) Cellulitis, abdominal wall (Acute) Sinus tachycardia by electrocardiogram (Acute) Elevated BP without diagnosis of hypertension (Acute) Intractable abdominal pain (Acute) Partial small bowel obstruction (Resolved) Vomiting (Resolved) Recurrent ventral hernia with incarceration (Resolved) Post op wound infection, Maykel pulseless of adhesions with removal of mesh. 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 I plan to continue her antibiotics pending culture results - preliminarily as coagulase-negative Staphylococcus - questionable likely methicillin resistance. I opened up her wound further and will now plan for wet to dry dressing BID, no other complaint of loose stools. C. difficile was negative. We will encourage ambulation. We will continue Lovenox. Pain management as necessary. We'll advance diet as tolerated
[2019-06-22] VITALS (13 sets, daily range): BP systolic 136–154; BP diastolic 72–90; PULSE 74–98; RESP 16–19; TEMP 36.6–37.1; O2SAT 96–98
[2019-06-22] MEDS: proMETHazine 25 MG/ML Syringe 6.25 MG IV ×4 (00:19→16:05)
[2019-06-22] MEDS: 0.9% NaCl Peripheral Flush Adult/Peds IV ×4 (00:30→20:17)
[2019-06-22] MEDS: HYDROmorphone 1 MG/ML Syringe IV ×7 (01:25→20:12)
[2019-06-22] MEDS: oxyCODONE 5 MG Tablet 10 MG PO ×2 (03:10→09:20)
[2019-06-22 04:14] LABS: Absolute Lymphocyte Count 2.23 X10^3/uL (0.83-4.51); Basophil# 0.04 X10^3/uL; Basophil% 0.4 % (0-1); Eosinophil# 0.51 X10^3/uL; Eosinophils% 5.4 % (0-5); Hematocrit 35.5 % (37-47); Hemoglobin 11.8 g/dL (12.0-15.0); Lymphocyte # 2.23 X10^3/ul (4.0); Lymphocyte % 23.7 % (19-41); Mean Corp Hgb Conc 33.2 g/dL (32-36); Mean Corpuscular Hgb 30.5 pg (27.0-32.0); Mean Corpuscular Volume 91.7 fL (81-99); Mean Platelet Vol. 8.8 fl (6.2-12.0); Monocyte# 0.53 X10^3/uL; Monocyte% 5.6 % (0-10); NRBC Flagged by Analyzer 0 % (0-5); Neutrophil # 5.99 X10^3/uL (2.7-7.7); Neutrophil % 63.8 % (47-70); Platelet Count 251 K/mm3 (150-450); RBC Distribution Width CV 12.3 % (11.6-14.6); Red Blood Count 3.87 M/mm3 (4.2-5.4); White Blood Count 9.4 K/mm3 (4.4-11.0)
[2019-06-22 04:38] LABS: Vancomycin, Trough Level 14.9 ug/mL (5.0-15.0)
--- NOTE | 2019-06-22 05:17 | PCM.RX.CS ---
Consult Pharmacy has been consulted to manage selected antiobiotic: Vancomycin Type of Consult: Follow-up Suspected Infection: Sepsis Labs: Vancomycin Trough 14.9 ug/mL (5.0-15.0) 06/22/19 04:02 Microbiology: Microbiology 06/20/19 14:30 Stool Enteric Bacteriology - Final 06/19/19 18:35 Wound - Abdominal Gram Stain - Final 06/19/19 18:35 Wound - Abdominal Wound Culture - Preliminary Coag Negative Staph 06/20/19 14:30 Stool C. difficile DNA Amplification - Final Goal Trough: 15-20 mcg/mL Pharmacy Plan for Drug Dosing: Pharmacy Service will continue to monitor and adjust dosing as required. Medications Vancomycin HCl 2,000 mg/ (Sodium Chloride) 540 mls @ 250 mls/hr IV Q8H JUAN Last Admin: 06/22/19 05:06 Dose: 250 mls/hr Documented by: TROUGH 14.9 NO CHANGES REDRAW TROUGH 06/26 @ 0400 Follow-Up Labs: Trough Vancomycin Labs to be done on [date and time ordered]: 06/26 @ 0400
[2019-06-22 05:35] LABS: Anion Gap 9 (5-15); BUN 3 mg/dL (7-18); BUN/Creat Ratio 5.8 RATIO (10-20); Calcium,Total 8.3 mg/dL (8.5-10.1); Chloride 110 mmol/L (98-107); Creatinine, Serum 0.51 mg/dL (0.55-1.02); EST Glomerular Filtration Rate 145 mL/min (>60); Est Glom Filt Rate - Afr Amer 176 mL/min (>60); Estimated Creatinine Clearance 141.18 ml/min; Glucose 113 mg/dL (74-106); Potassium 3.7 mmol/L (3.5-5.1); Sodium Level 143 mmol/L (136-145)
[2019-06-22] MEDS: Enoxaparin 40 MG/0.4 ML Syringe SC (06:26)
[2019-06-22] MEDS: 0.9% Normal Saline 1,000 ML 150 ML IV (09:02)
--- NOTE | 2019-06-22 09:44 | PCM.PN.HOSP ---
Patient Problems: Active and Suspected Problems (Last Reviewed 10/10/18 @ 02:33 by Alan Torres MD) Severe sepsis (Acute) Cellulitis, abdominal wall (Acute) Sinus tachycardia by electrocardiogram (Acute) JAGJIT (obstructive sleep apnea) (Suspected) Elevated BP without diagnosis of hypertension (Acute) Subjective: Patient seen and examined. She has had a bad night because of pain on the surgical site. However she did not have any fever or chills, no nausea vomiting. Review of systems otherwise negative. Labs and vitals reviewed. Vitals/I&O's: Vital Signs Temp Pulse Resp BP Pulse Ox 98.1 F 80 16 151/78 H 98 06/22/19 09:04 06/22/19 09:04 06/22/19 09:04 06/22/19 09:04 06/22/19 09:04 Oxygen Delivery Method Room Air Weight: 306 lb 14.135 oz Body Mass Index (BMI) 51.0 Finger Stick Blood Glucose 109 Intake and Output for Last 24 Hours 06/20/19 06/21/19 06/22/19 23:59 23:59 23:59 Intake Total 5240.83 / 5620.83 9506.88 / 9506.88 1675.62 / 1675.62 Balance 5240.83 / 5620.83 9506.88 / 9506.88 1675.62 / 1675.62 General: Alert, Oriented x3, Cooperative HEENT: Atraumatic, PERRLA, EOMI, Normocephalic Oral: Moist Mucosa Neck: Supple, No JVD, Negative Carotid Bruits Lungs: Clear to auscultation, Normal air movement, No rhonchi, No wheeze, No rales Cardiovascular: Regular rate, Regular Rhythm, Normal S1, Normal S2, No murmurs Abdomen: Bowel Sounds Present, Soft, Non Tender Extremities: No edema, Capillary Refill Less than 3 Seconds Skin: - - clean dressing over lower abdomen; Musculoskeletal: No Tenderness to Palpation of Joints or Extremities Lymphatic: No Cervical, Supraclavicular, or Inguinal Adenopathy Neurological: Cranial nerves II-XII grossly intact, Neuro grossly intact, Motor Exam 5/5 strength throughout Psych/Mental Status: Anxious - tearful, Alert and oriented to time, place, person, mood and affect Microbiology Past 72 Hours 06/20/19 14:30 Stool Enteric Bacteriology - Final 06/19/19 18:35 Wound - Abdominal Gram Stain - Final 06/19/19 18:35 Wound - Abdominal Wound Culture - Preliminary Coag Negative Staph 06/20/19 14:30 Stool C. difficile DNA Amplification - Final Laboratory Results 06/22/19 04:02: Vancomycin Trough 14.9 06/22/19 04:02: WBC 9.4, RBC 3.87 L, Hgb 11.8 L, Hct 35.5 L, MCV 91.7, MCH 30.5, MCHC 33.2, RDW Std Deviation 41.0, RDW Coeff of Juan 12.3, Plt Count 251, MPV 8.8, Immature Gran % (Auto) 1.100 H, Neut % (Auto) 63.8, Lymph % (Auto) 23.7, [place] % (Auto) 5.6, Eos % (Auto) 5.4 H, Baso % (Auto) 0.4, Absolute Neuts (auto) 6.0, Absolute Lymphs (auto) 2.23, Nucleated RBC % 0 06/22/19 04:02: Sodium 143, Potassium 3.7, Chloride 110 H, Carbon Dioxide 24.0, Anion Gap 9, BUN 3 L, Creatinine 0.51 L, Estim Creat Clear Calc 141.18, Est GFR (MDRD) Af Amer 176, Est GFR (MDRD) Non-Af 145, BUN/Creatinine Ratio 5.8 L, Glucose 113 H, Calcium 8.3 L Current Medications Acetaminophen (Tylenol) 650 mg PO Q6H PRN PRN PRN Reason: Non-cardiac pain (mod-severe) Last Admin: 06/20/19 12:03 Dose: 650 mg Documented by: Albuterol Sulfate (Ventolin Aerosols) 2.5 mg INHALATION Q2H PRN PRN PRN Reason: dyspnea, wheezing Enoxaparin Sodium (Lovenox) 40 mg SC DAILY@0600 [facility] Last Admin: 06/22/19 06:26 Dose: 40 mg Documented by: Famotidine (Pepcid) 20 mg PO BID [facility] Hydralazine HCl (Apresoline Iv) 10 mg IV Q4H PRN PRN PRN Reason: SBP > 160 Hydromorphone HCl (Dilaudid Inj) 1 mg IV Q3H PRN PRN PRN Reason: SEVERE PAIN (6-10) Last Admin: 06/22/19 07:00 Dose: 1 mg Documented by: Sodium Chloride () 1,000 mls @ 150 mls/hr IV .Q6H40M [facility] Last Admin: 06/22/19 09:02 Dose: 150 mls/hr Documented by: Piperacillin Sod/Tazobactam (Sod 3.375 gm/ Sodium Chloride) 50 mls @ 12.5 mls/hr IV Q8 JUAN Last Admin: 06/22/19 06:31 Dose: 12.5 mls/hr Documented by: Vancomycin IV Pharmacy to Dose (1 ea/ Sodium Chloride) 500 mls @ 250 mls/hr IV PRN PRN; Protocol PRN Reason: Rx to Dose Sodium Chloride () 250 mls @ 15 mls/hr IV .[id number] PRN PRN Reason: SALINE FLUSH Last Infusion: 06/22/19 06:30 Dose: 0 mls/hr Documented by: Vancomycin HCl 2,000 mg/ (Sodium Chloride) 540 mls @ 250 mls/hr IV Q8H [facility] Last Infusion: 06/22/19 09:00 Dose: Infused Documented by: Ibuprofen (Motrin) 800 mg PO Q8H PRN PRN PRN Reason: MILD PAIN (1-3/10) Nicotine (Nicoderm Cq (Pbkc)) 14 mg TRANSDERM. DAILY [facility] Last Admin: 06/22/19 09:14 Dose: Not Given Documented by: Nutritional Formula (Lactose Free) (Ensure Clear) 120 ml PO 4X/DAY [facility] Last Admin: 06/22/19 09:14 Dose: Not Given Documented by: Oxycodone HCl (Oxyir) 10 mg PO Q4H PRN PRN PRN Reason: SEVERE PAIN (6-10/10) Last Admin: 06/22/19 09:20 Dose: 10 mg Documented by: Promethazine HCl (Phenergan) 6.25 mg IV Q4H PRN PRN PRN Reason: NAUSEA/VOMITING Last Admin: 06/22/19 09:19 Dose: 6.25 mg Documented by: Sodium Chloride () 10 - 40 ml IV UD PRN PRN Reason: SALINE FLUSH Last Admin: 06/22/19 07:02 Dose: 10 ml Documented by: Medical Necessity - Tobacco Use Smoking Status: Current some day smoker Tobacco Use: Cigarettes Assessment/Plan All Active Problems (Last Reviewed 10/10/18 @ 02:33 by Alan Torres MD) Severe sepsis (Acute) Cellulitis, abdominal wall (Acute) Sinus tachycardia by electrocardiogram (Acute) Elevated BP without diagnosis of hypertension (Acute) Intractable abdominal pain (Acute) Partial small bowel obstruction (Resolved) Vomiting (Resolved) Recurrent ventral hernia with incarceration (Resolved) 1. Sepsis due to post operative surgical site infection leucocytosis has resolved. continue IV vancomycin and IV zosyn blood add wound cultures pending wound culture gram stain showed 1+ bacteria, and 1+ wbcs. wound cultured Coagulase negative Staph general surgery on board 2. Diarrhea: C diff negative. Diarrhea has resolved. 3. Elevated BP: no diagnosis of hypertension. BP has been in 140s-150s systolic since admission. on IV hydralazine prn. started on PO amlodipine 5mg daily. To follow up wiith PCP on outpatient basis for adjustment of BP meds as appropriate 4. Small bowel obstruction status post surgery: Stable. General surgery on board. 5. Super morbid obesity: BMI is >50. counseled on weight and lifestyle changes 6. Suspected JAGJIT: to follow up with pulmonology on outpatient basis for sleep studies 7. Hypokalemia: Resolved. 8. Nicotine dependence: Counseled on cessation. 9.GERD: on famotidine History of anxiety and depression: currently not on any pharmacological treatment. To follow up with PCP on outpatient basis for this to be addressed DVT prophylaxis: lovenox Code Visit Inpatient E&M: 45667 Subs Hosp L2
--- NOTE | 2019-06-22 11:17 | CASEMGMT ---
Per Suraj, wound RN, pt's mom will be able to assist daily with dressing changes and pt states the same at this time as well. Pt does live with parents currently. Pt states that her and her mother cared for her brother before he and were taught how to care for wounds. Pt states no concerns with going home at time of discharge. Pt voices no further questions/concerns/needs at this time. Ppio SALAZAR CM
[2019-06-22] MEDS: Morphine 2 MG/ML Syringe IV (16:05)
--- NOTE | 2019-06-22 17:59 | CT_ITS ---
STUDY: CT ABDOMEN AND PELVIS WITHOUT CONTRAST REASON FOR EXAM: Female, 33 years old. Postop wound infection RADIATION DOSAGE (If Supplied By Facility): CTDIvol = ( 24.15 ) mGy, DLP = ( 1357.60 ) mGycm TECHNIQUE: Transaxial images were obtained from the dome of the diaphragm to the symphysis pubis without oral contrast, and without intravenous contrast. Sagittal and coronal images were reconstructed. Individualized dose optimization techniques were used for this CT. COMPARISON: December 21, 2018 FINDINGS: The visualized lung bases are unremarkable. The visualized portions of the heart are within normal limits. Probable cirrhosis of the liver with lobulated contour with fatty changes. Nonvisualization of the gallbladder. No significant dilatation of the extrahepatic biliary system. Normal spleen. Normal pancreas. Normal bilateral adrenal glands. Normal right kidney. Normal left kidney. Normal visualized stomach. Normal small intestine. Normal colon. The appendix is not visualized. Normal abdominal aorta. Normal inferior vena cava. Normal retroperitoneum. Mild stranding of the greater omentum likely postsurgically related. Normal urinary bladder. Midline skin shilpa and postsurgical changes of the anterior abdominal wall. No subcutaneous drainable collection. Stable sclerotic focus of T9 vertebral body. Mild lower thoracic degenerative vertebral changes. CT/Abdomen/Pelvis without Cont IMPRESSION: No sign of bowel obstruction. Cirrhosis of the liver is suggested. No subcutaneous collection of the anterior abdominal wall. Electronically Signed: José Ramey DO at 18:59 EDT Tel [phone], Service support ,
[2019-06-22] MEDS: 0.9% Normal Saline 1,000 ML 125 ML IV (20:11)
[2019-06-22] MEDS: proMETHazine 25 MG/ML Syringe 12.5 MG IV (20:12)
--- NOTE | 2019-06-22 20:29 | PN.SURG_ITS ---
Patient Problems: Active and Suspected Problems (Last Reviewed 10/10/18 @ 02:33 by Alan Torres MD) Severe sepsis (Acute) Cellulitis, abdominal wall (Acute) Sinus tachycardia by electrocardiogram (Acute) JAGJIT (obstructive sleep apnea) (Suspected) Elevated BP without diagnosis of hypertension (Acute) Subjective: worsening lower abdominal pain, vomiting ?2 - Physical Exam General: Alert, Oriented x3, Cooperative Lungs: Clear to auscultation, Normal air movement Cardiovascular: Regular rate, No murmurs Abdomen: Bowel Sounds Present, Soft, Tender - lower abdomen without peritoneal signs, incision with wet-to-dry packing and no worsening erythema or cellulitis. No induration Vital Signs Temp Pulse Resp BP Pulse Ox 98.3 F 82 19 H 151/80 H 98 06/22/19 18:50 06/22/19 18:50 06/22/19 18:50 06/22/19 18:50 06/22/19 18:50 Oxygen Delivery Method Room Air Weight: 139.2 kg Body Mass Index (BMI) 51.0 Finger Stick Blood Glucose 109 Intake and Output for Last 24 Hours 06/20/19 06/21/19 06/22/19 23:59 23:59 23:59 Intake Total 5240.83 / 5620.83 9506.88 / 9506.88 3805.62 / 3805.62 Output Total 400 / 400 Balance 5240.83 / 5620.83 9506.88 / 9506.88 3405.62 / 3405.62 Microbiology Past 72 Hours 06/19/19 19:10 Blood Culture - Preliminary Blood Culture (Wb) - Left Hand No growth in 48 hours. 06/19/19 18:45 Blood Culture - Preliminary Blood Culture (Wb) - Anticubital Left No growth in 48 hours. 06/19/19 18:35 Gram Stain - Final Wound - Abdominal Wound Culture - Final Coag Negative Staph 06/20/19 14:30 Enteric Bacteriology - Final Stool 06/20/19 14:30 C. difficile DNA Amplification - Final Stool Laboratory Tests Past 24 Hrs 06/22/19 06/22/19 06/22/19 04:02 04:02 04:02 WBC 9.4 RBC 3.87 L Hgb 11.8 L Hct 35.5 L MCV 91.7 MCH 30.5 MCHC 33.2 RDW Std Deviation 41.0 RDW Coeff of Jaun 12.3 Plt Count 251 MPV 8.8 Immature Gran % (Auto) 1.100 H Neut % (Auto) 63.8 Lymph % (Auto) 23.7 [place] % (Auto) 5.6 Eos % (Auto) 5.4 H Baso % (Auto) 0.4 Absolute Neuts (auto) 6.0 Absolute Lymphs (auto) 2.23 Nucleated RBC % 0 Sodium 143 Potassium 3.7 Chloride 110 H Carbon Dioxide 24.0 Anion Gap 9 BUN 3 L Creatinine 0.51 L Estim Creat Clear Calc 141.18 Est GFR (MDRD) Af Amer 176 Est GFR (MDRD) Non-Af 145 BUN/Creatinine Ratio 5.8 L Glucose 113 H Calcium 8.3 L Vancomycin Trough 14.9 Medical Necessity - Tobacco Use Smoking Status: Current some day smoker Tobacco Use: Cigarettes Assessment/Plan All Active Problems (Last Reviewed 10/10/18 @ 02:33 by Alan Torres MD) Severe sepsis (Acute) Cellulitis, abdominal wall (Acute) Sinus tachycardia by electrocardiogram (Acute) Elevated BP without diagnosis of hypertension (Acute) Intractable abdominal pain (Acute) Partial small bowel obstruction (Resolved) Vomiting (Resolved) Recurrent ventral hernia with incarceration (Resolved) Post op wound infection, status post lysis of adhesions with removal of mesh. 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 I plan to continue her antibiotics pending culture results - preliminarily as coagulase-negative Staphylococcus - questionable likely methicillin resistance. I opened up her wound further and will now plan for wet to dry dressing BID, no other complaint of loose stools. C. difficile was negative. patient noted worsening lower abdominal pain throughout the day and is vomited 2 times. She states she is still passing gas and having bowel movements area did noncontrast CT scan was obtained which demonstrated no obstructive type findings. Review of the CT scans does demonstrate 2 areas of stapled anastomoses. It was noted at her exploration showed appeared to be Blanca-en-Y anastomosis. Upon discussion the patient further she states in 2008 she had a surgical procedure to prevent bile reflux performed in [place] by Dr. Rehman. This sounds like it was likely a Blanca-en-Y procedure. this were explained the findings at surgical intervention in [place] when the patient denies knowledge of any history of true gastric bypass surgery. We are asking for operative reports from [place] to verify this possibility. We will encourage ambulation. We will continue Lovenox. Pain management as necessary. I will plan to maintain the patient in nothing by mouth status currently.
[2019-06-23] VITALS (7 sets, daily range): BP systolic 119–149; BP diastolic 75–82; PULSE 68–98; RESP 16–18; TEMP 36.4–36.9; O2SAT 94–97
[2019-06-23] MEDS: HYDROmorphone 1 MG/ML Syringe IV ×3 (02:33→09:05)
[2019-06-23] MEDS: proMETHazine 25 MG/ML Syringe 12.5 MG IV ×3 (02:33→11:43)
[2019-06-23] MEDS: 0.9% Normal Saline 1,000 ML 125 ML IV (04:59)
--- NOTE | 2019-06-23 06:00 | RAD_ITS ---
STUDY: X-RAY - ABDOMEN/PELVIS REASON FOR EXAM: Female, 33 years old. Nausea, vomiting infection at surgery site for small bowel obstruction TECHNIQUE: 4 views, upright and supine KUB COMPARISON: CT abdomen and pelvis 06/22/2018 FINDINGS: There is scattered gas and stool within large bowel which is not substantially dilated. Minimal scattered gas within nondilated small bowel. No free air. Clear lung bases. Grossly normal size and position of the solid organs of the abdomen. No acute osseous process. Tubal ligation clips. Ventral abdominal wall surgical shilpa. RAD/Abd Inc Decub and/or Erect IMPRESSION: Unremarkable bowel pattern with no evidence of postoperative ileus or bowel obstruction. Electronically Signed: Eros Peraza MD at 14:16 EDT Tel , Service support ,
[2019-06-23] MEDS: Enoxaparin 40 MG/0.4 ML Syringe SC (06:53)
[2019-06-23 07:32] LABS: Absolute Lymphocyte Count 1.86 X10^3/uL (0.83-4.51); Absolute Neutrophil Count 5.4 X10^3/uL (2.0-7.7); Basophil# 0.04 X10^3/uL; Basophil% 0.5 % (0-1); Eosinophils% 6.1 % (0-5); Hematocrit 35.1 % (37-47); Hemoglobin 11.4 g/dL (12.0-15.0); Lymphocyte # 1.86 X10^3/ul (4.0); Lymphocyte % 22.6 % (19-41); Mean Corp Hgb Conc 32.5 g/dL (32-36); Mean Corpuscular Hgb 29.8 pg (27.0-32.0); Mean Corpuscular Volume 91.9 fL (81-99); Mean Platelet Vol. 8.9 fl (6.2-12.0); Monocyte% 4.9 % (0-10); NRBC Flagged by Analyzer 0 % (0-5); Neutrophil # 5.39 X10^3/uL (2.7-7.7); Neutrophil % 65.3 % (47-70); Platelet Count 261 K/mm3 (150-450); RBC Distribution Width CV 12.1 % (11.6-14.6); RBC Distribution Width SD 40.7 fl (35.1-43.9); Red Blood Count 3.82 M/mm3 (4.2-5.4); White Blood Count 8.2 K/mm3 (4.4-11.0)
[2019-06-23 07:44] LABS: Anion Gap 3 (5-15); BUN 5 mg/dL (7-18); BUN/Creat Ratio 9.8 RATIO (10-20); Calcium,Total 8.4 mg/dL (8.5-10.1); Chloride 107 mmol/L (98-107); Creatinine, Serum 0.51 mg/dL (0.55-1.02); EST Glomerular Filtration Rate 147 mL/min (>60); Est Glom Filt Rate - Afr Amer 178 mL/min (>60); Estimated Creatinine Clearance 141.18 ml/min; Glucose 104 mg/dL (74-106); Potassium 3.8 mmol/L (3.5-5.1); Sodium Level 137 mmol/L (136-145)
--- NOTE | 2019-06-23 11:12 | PN_ITS ---
Patient Problems: Active and Suspected Problems (Last Reviewed 10/10/18 @ 02:33 by Alan Torres MD) Severe sepsis (Acute) Cellulitis, abdominal wall (Acute) Sinus tachycardia by electrocardiogram (Acute) JAGJIT (obstructive sleep apnea) (Suspected) Elevated BP without diagnosis of hypertension (Acute) Subjective: Patient seen and examined. She says pain is relativel.y better today. She had some nausea and vomiting yesterday, but says its better now. CT abdomen done yesterday was negative for any obstruction. Per discussion with surgeon, it appears patient had a Blanca-en-Y surgery years ago for suspected bile acid reflux. She appears to have had problems with nausea and vomiting since then. Review of systems is otherwise negative. Vitals/I&O's: Vital Signs Temp Pulse Resp BP Pulse Ox 98.2 F 72 16 119/75 96 06/23/19 08:45 06/23/19 08:45 06/23/19 08:45 06/23/19 08:45 06/23/19 08:45 Oxygen Delivery Method Room Air Weight: 306 lb 14.135 oz Body Mass Index (BMI) 51.0 Finger Stick Blood Glucose 109 Intake and Output for Last 24 Hours 06/21/19 06/22/19 06/23/19 23:59 23:59 23:59 Intake Total 9506.88 / 9506.88 4345.62 / 4345.62 1610.83 / 1610.83 Output Total 400 / 800 400 / 400 Balance 9506.88 / 9506.88 3945.62 / 3545.62 1210.83 / 1210.83 General: Alert, Oriented x3, Cooperative HEENT: Atraumatic, PERRLA, EOMI, Normocephalic Oral: Moist Mucosa Neck: Supple, No JVD, Negative Carotid Bruits Lungs: Clear to auscultation, Normal air movement, No rhonchi, No wheeze, No rales Cardiovascular: Regular rate, Regular Rhythm, Normal S1, Normal S2, No murmurs Abdomen: Bowel Sounds Present, Soft, Non Tender Extremities: No edema, Capillary Refill Less than 3 Seconds Skin: - - clean dressing over lower abdomen; Musculoskeletal: No Tenderness to Palpation of Joints or Extremities Lymphatic: No Cervical, Supraclavicular, or Inguinal Adenopathy Neurological: Cranial nerves II-XII grossly intact, Neuro grossly intact, Motor Exam 5/5 strength throughout Psych/Mental Status: Anxious - tearful, Alert and oriented to time, place, person, mood and affect Microbiology Past 72 Hours 06/19/19 18:35 Wound - Abdominal Gram Stain - Final 06/19/19 18:35 Wound - Abdominal Wound Culture - Preliminary Coag Negative Staph 06/19/19 19:10 Blood Culture (Wb) - Left Hand Blood Culture - Preliminary No growth in 48 hours. 06/19/19 18:45 Blood Culture (Wb) - Anticubital Left Blood Culture - Preliminary No growth in 48 hours. 06/20/19 14:30 Stool Enteric Bacteriology - Final 06/20/19 14:30 Stool C. difficile DNA Amplification - Final Laboratory Results 06/23/19 07:23: WBC 8.2, RBC 3.82 L, Hgb 11.4 L, Hct 35.1 L, MCV 91.9, MCH 29.8, MCHC 32.5, RDW Std Deviation 40.7, RDW Coeff of Juan 12.1, Plt Count 261, MPV 8.9, Immature Gran % (Auto) 0.600, Neut % (Auto) 65.3, Lymph % (Auto) 22.6, [place] % (Auto) 4.9, Eos % (Auto) 6.1 H, Baso % (Auto) 0.5, Absolute Neuts (auto) 5.4, Absolute Lymphs (auto) 1.86, Nucleated RBC % 0 06/23/19 07:23: Sodium 137, Potassium 3.8, Chloride 107, Carbon Dioxide 27.0, Anion Gap 3 L, BUN 5 L, Creatinine 0.51 L, Estim Creat Clear Calc 141.18, Est GFR (MDRD) Af Amer 178, Est GFR (MDRD) Non-Af 147, BUN/Creatinine Ratio 9.8 L, Glucose 104, Calcium 8.4 L Diagnostic Data Pelvis CT 06/19/19 18:43 IMPRESSION: Postsurgical and possible inflammatory changes within the transverse rectus sheath bilaterally greater on the right as well as the fat in the lower anterior abdominal pelvic cavity as well as the subcutaneous fat of the anterior abdominal and pelvic rabago but no well-defined abscess collection identified. No evidence for abscess within the abdominal or pelvic cavity Electronically Signed: Jose Ayala MD at 20:08 EDT , Service support , Chest X-Ray 06/19/19 19:40 IMPRESSION: No acute cardiopulmonary pathology Electronically Signed: Jose Ayala MD at 20:02 EDT , Service support , Abdomen/Pelvis CT 06/22/19 17:59 IMPRESSION: No sign of bowel obstruction. Cirrhosis of the liver is suggested. No subcutaneous collection of the anterior abdominal wall. Electronically Signed: José Ramey DO at 18:59 EDT Tel [phone], Service support , Current Medications Acetaminophen (Tylenol) 650 mg PO Q6H PRN PRN PRN Reason: Non-cardiac pain (mod-severe) Last Admin: 06/20/19 12:03 Dose: 650 mg Documented by: Albuterol Sulfate (Ventolin Aerosols) 2.5 mg INHALATION Q2H PRN PRN PRN Reason: dyspnea, wheezing Amlodipine Besylate (Norvasc) 5 mg PO DAILY [facility] Last Admin: 06/22/19 16:02 Dose: Not Given Documented by: Enoxaparin Sodium (Lovenox) 40 mg SC DAILY@0600 [facility] Last Admin: 06/23/19 06:53 Dose: 40 mg Documented by: Famotidine (Pepcid) 20 mg PO BID [facility] Last Admin: 06/22/19 22:57 Dose: Not Given Documented by: Hydralazine HCl (Apresoline Iv) 10 mg IV Q4H PRN PRN PRN Reason: SBP > 160 Hydromorphone HCl (Dilaudid Inj) 1 mg IV Q3H PRN PRN PRN Reason: SEVERE PAIN (6-10/10) Last Admin: 06/23/19 09:05 Dose: 1 mg Documented by: Vancomycin IV Pharmacy to Dose (1 ea/ Sodium Chloride) 500 mls @ 250 mls/hr IV PRN PRN; Protocol PRN Reason: Rx to Dose Sodium Chloride () 250 mls @ 15 mls/hr IV .[id number] PRN PRN Reason: SALINE FLUSH Last Infusion: 06/22/19 06:30 Dose: 0 mls/hr Documented by: Vancomycin HCl 2,000 mg/ (Sodium Chloride) 540 mls @ 250 mls/hr IV Q8H JUAN Last Infusion: 06/23/19 07:11 Dose: Infused Documented by: Sodium Chloride () 1,000 mls @ 125 mls/hr IV .Q8H JUAN Last Infusion: 06/23/19 07:11 Dose: 125 mls/hr Documented by: Ibuprofen (Motrin) 800 mg PO Q8H PRN PRN PRN Reason: MILD PAIN (1-310) Nicotine (Nicoderm Cq (Pbkc)) 14 mg TRANSDERM. DAILY [facility] Last Admin: 06/23/19 08:57 Dose: Not Given Documented by: Nutritional Formula (Lactose Free) (Ensure Clear) 120 ml PO 4X/DAY [facility] Last Admin: 06/22/19 22:57 Dose: Not Given Documented by: Oxycodone HCl (Oxyir) 10 mg PO Q4H PRN PRN PRN Reason: SEVERE PAIN (6-1010) Last Admin: 06/22/19 09:20 Dose: 10 mg Documented by: Promethazine HCl (Phenergan) 12.5 mg IV Q4H PRN PRN PRN Reason: NAUSEA/VOMITING Last Admin: 06/23/19 06:53 Dose: 12.5 mg Documented by: Sodium Chloride () 10 - 40 ml IV UD PRN PRN Reason: SALINE FLUSH Last Admin: 06/22/19 20:17 Dose: 20 ml Documented by: Medical Necessity - Tobacco Use Smoking Status: Current some day smoker Tobacco Use: Cigarettes Assessment/Plan All Active Problems (Last Reviewed 10/10/18 @ 02:33 by Alan Torres MD) Severe sepsis (Acute) Cellulitis, abdominal wall (Acute) Sinus tachycardia by electrocardiogram (Acute) Elevated BP without diagnosis of hypertension (Acute) Intractable abdominal pain (Acute) Partial small bowel obstruction (Resolved) Vomiting (Resolved) Recurrent ventral hernia with incarceration (Resolved) 1. Sepsis due to post operative surgical site infection * leucocytosis has resolved. * on IV vancomycin and IV zosyn * Wound cultured coagulase-negative staph which is thought to be a skin contaminant. * Blood culture showed no growth after 48 hours. * Currently on IV vancomycin and Zosyn. * general surgery on board * 2. Diarrhea: C diff negative. Diarrhea has resolved. 3. Benign essential hypertension * newly diagnosed * didnt have a diagnosis of hypertension before admission. * BP has been in 140s-150s systolic since admission. * on IV hydralazine prn. * now on PO amlodipine 5mg daily. BP control is improving slowly. * to follow up with PCP upon discharge. * 4. Small bowel obstruction status post surgery: * Stable. General surgery on board. * Complained of further nausea and vomiting yesterday. CT of the abdomen done showed no bowel obstruction. However per surgeon, review of CT scans demonstrated 2 areas of stapled anastomosis which appeared to be a Blanca-en-Y anastomosis. Patient then stated that back in 2008 she had a surgical procedure to prevent bile reflux and was likely a Blanca-en-Y procedure. * operative records requested from [place] 5. Super morbid obesity: BMI is >50. counseled on weight and lifestyle changes 6. Suspected JAGJIT: to follow up with pulmonology on outpatient basis for sleep studies 7. Hypokalemia: Resolved. 8. Nicotine dependence: Counseled on cessation. 9.GERD: on famotidine History of anxiety and depression: currently not on any pharmacological treatment. To follow up with PCP on outpatient basis for this to be addressed DVT prophylaxis: lovenox Code Visit Inpatient E&M: 57455 Subs Hosp L2
--- NOTE | 2019-06-23 11:40 | PN.SURG_ITS ---
Patient Problems: Active and Suspected Problems (Last Reviewed 10/10/18 @ 02:33 by Alan Torres MD) Severe sepsis (Acute) Cellulitis, abdominal wall (Acute) Sinus tachycardia by electrocardiogram (Acute) JAGJIT (obstructive sleep apnea) (Suspected) Elevated BP without diagnosis of hypertension (Acute) Subjective: less pain today. - Physical Exam General: Alert, Oriented x3, Cooperative Lungs: Clear to auscultation, Normal air movement Cardiovascular: Regular rate, No murmurs Abdomen: Bowel Sounds Present, Soft, Tender - in lower quadrant but decreased. Wound started to granulate with nucleus erythema. Wet-to-dry packing changed Vital Signs Temp Pulse Resp BP Pulse Ox 98.2 F 72 16 119/75 96 06/23/19 08:45 06/23/19 08:45 06/23/19 08:45 06/23/19 08:45 06/23/19 08:45 Oxygen Delivery Method Room Air Weight: 139.2 kg Body Mass Index (BMI) 51.0 Finger Stick Blood Glucose 109 Intake and Output for Last 24 Hours 06/21/19 06/22/19 06/23/19 23:59 23:59 23:59 Intake Total 9506.88 / 9506.88 4345.62 / 4345.62 1610.83 / 1610.83 Output Total 400 / 800 400 / 400 Balance 9506.88 / 9506.88 3945.62 / 3545.62 1210.83 / 1210.83 Microbiology Past 72 Hours 06/19/19 18:35 Gram Stain - Final Wound - Abdominal Wound Culture - Preliminary Coag Negative Staph 06/19/19 19:10 Blood Culture - Preliminary Blood Culture (Wb) - Left Hand No growth in 48 hours. 06/19/19 18:45 Blood Culture - Preliminary Blood Culture (Wb) - Anticubital Left No growth in 48 hours. 06/20/19 14:30 Enteric Bacteriology - Final Stool 06/20/19 14:30 C. difficile DNA Amplification - Final Stool Laboratory Tests Past 24 Hrs 06/23/19 06/23/19 07:23 07:23 WBC 8.2 RBC 3.82 L Hgb 11.4 L Hct 35.1 L MCV 91.9 MCH 29.8 MCHC 32.5 RDW Std Deviation 40.7 RDW Coeff of Juan 12.1 Plt Count 261 MPV 8.9 Immature Gran % (Auto) 0.600 Neut % (Auto) 65.3 Lymph % (Auto) 22.6 [place] % (Auto) 4.9 Eos % (Auto) 6.1 H Baso % (Auto) 0.5 Absolute Neuts (auto) 5.4 Absolute Lymphs (auto) 1.86 Nucleated RBC % 0 Sodium 137 Potassium 3.8 Chloride 107 Carbon Dioxide 27.0 Anion Gap 3 L BUN 5 L Creatinine 0.51 L Estim Creat Clear Calc 141.18 Est GFR (MDRD) Af Amer 178 Est GFR (MDRD) Non-Af 147 BUN/Creatinine Ratio 9.8 L Glucose 104 Calcium 8.4 L Medical Necessity - Tobacco Use Smoking Status: Current some day smoker Tobacco Use: Cigarettes Assessment/Plan All Active Problems (Last Reviewed 10/10/18 @ 02:33 by Alan Torres MD) Severe sepsis (Acute) Cellulitis, abdominal wall (Acute) Sinus tachycardia by electrocardiogram (Acute) Elevated BP without diagnosis of hypertension (Acute) Intractable abdominal pain (Acute) Partial small bowel obstruction (Resolved) Vomiting (Resolved) Recurrent ventral hernia with incarceration (Resolved) Post op wound infection, status post lysis of adhesions with removal of mesh. 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 I plan to continue her antibiotics pending culture results - preliminarily as coagulase-negative Staphylococcus - questionable likely methicillin resistance. I opened up her wound further and will now plan for wet to dry dressing BID, no other complaint of loose stools. C. difficile was negative. patient noted worsening lower abdominal pain throughout the day and is vomited 2 times. She states she is still passing gas and having bowel movements area did noncontrast CT scan was obtained which demonstrated no obstructive type findings. Review of the CT scans does demonstrate 2 areas of stapled anastomoses. It was noted at her exploration showed appeared to be Blanca-en-Y anastomosis. Upon discussion the patient further she states in 2008 she had a surgical procedure to prevent bile reflux performed in [place] by Dr. Rehman. This sounds like it was likely a Blanca-en-Y procedure. this were explained the findings at surgical intervention in [place] when the patient denies knowledge of any history of true gastric bypass surgery. We are asking for operative reports from [place] to verify this possibility. We will encourage ambulation. We will continue Lovenox. Pain management as necessary. I will plan to restart clear liquids and advance as tolerated.
[2019-06-23] MEDS: oxyCODONE 5 MG Tablet 10 MG PO (11:44)
[2019-06-23] MEDS: Famotidine 20 MG Tablet PO (14:11)
--- NOTE | 2019-06-23 18:15 | DCINST_ITS ---
- Discharge Diagnoses Current Active Problems: Current Active and Chronic Problems (Last Reviewed 10/10/18 @ 02:33 by Alan Torres MD) Severe sepsis (Acute) Cellulitis, abdominal wall (Acute) Sinus tachycardia by electrocardiogram (Acute) Anxiety and depression (Chronic) Morbid obesity (Chronic) Elevated BP without diagnosis of hypertension (Acute) You will use the following diet at home:: No restrictions Discharge Activity: May Shower Call your doctor if your incision/area has: Increased Pain/ Swelling Call your doctor if you observe: Fever of 101 or Higher, Inability to have a bowel movement Cleanse incision/area with: Soap & Water Additional Instructions: wet to dry dressing to the incision twice a day Allergies/Adverse Reactions: Allergies ketorolac tromethamine [From Toradol] Allergy (Verified 06/19/19 18:10) Shortness of breath ondansetron HCl [From Zofran] Allergy (Verified 06/19/19 18:10) Shortness of breath Medications to take at Discharge Oxycodone HCl/Acetaminophen [Percocet 5/325] 1 tab PO Q6H PRN PRN 5 Days #14 tab 06/23/19 Sulfamethoxazole/Trimethoprim [Bactrim Ds Tablet] 1 ea PO BID #20 tab 06/23/19 The following prescriptions were given: Sulfamethoxazole/Trimethoprim [Bactrim Ds Tablet] 1 ea PO BID #20 tab Prescription Printed Oxycodone HCl/Acetaminophen [Percocet 5/325] 1 tab PO Q6H PRN PRN 5 Days #14 tab PRN Reason: Pain Prescription Printed Primary Care Physician: Jose Barron MD [Primary Care Provider] - Test Results: Test results from this visit will be discussed in further detail at your follow- up appointment, if applicable. Please Follow Up With: Eros Yadav MD When: 1 week
--- NOTE | 2019-06-23 18:50 | NURSING ---
Discharge teaching completed. Questions answered. Patient voiced understanding of same.
--- NOTE | 2019-06-24 12:13 | DS.PCM_ITS ---
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 I did initially seen the patient in December 2018. At the time I noted: Rebeka is a 33 year old female with a complaint of?a bulge ?and discomfort ?in her?upper midline incision after the upper left and right lateral upper abdominal areas. ?The patient notes discomfort in this area with lifting, straining and coughing. ?The symptoms have increased, over the past?few?weeks. ? The patient has a past surgical history of appendectomy, cholecystectomy, multiple C-sections. 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 ?The patient developed a wound infection following that the site was opened and a wound VAC applied. ? The patient was otherwise doing relatively well. ?She had what sounds like an open midline incision for a reflux surgical procedure a few years previously. ?Since that time, she has developed multiple midline incisional hernias. ?She apparently had incisional hernia repair without mesh performed prior to her presentation in 2018 at [facility]. ? She initially presented on October 19, 2017 for was felt to be a recurring incisional hernia with transverse colon included within the hernia. ?She was taken emergently and underwent simple closure through that area in her upper midline. This was performed by Dr. Sebastian Marcial ? She then had a recurrence of that site and was transferred to [facility] where she again underwent a recurrent ventral hernia repair with what sounds like simple sutures listed as July 06, 2018. ? She then had recurrence of a hernia at the level of her umbilicus area and she was taken for open repair with a 6.4 cm igiugig ventralex mesh placed through the umbilicus on July 12, 2018. This was was performed by Dr. Rosetta Miles ? Next the patient had a recurrence in the upper midline area. ?She was taken to the operating suite in September 26, 2018 for recurrent incarcerated ventral hernia and underwent laparoscopic ventral hernia repair with what I believe was a [address] mesh. This was performed by Dr. Sebastian Marcial ? She presented to [facility] emergency department on December 21 with complaints of upper abdominal pain. ???CT scan of the abdomen and pelvis was obtained. ?This was read as a small supraumbilical ventral hernia containing omental fat. ?It stated the transverse colon right adjacent to the area. ? My review the CAT scan suggested 1 - a port site hernia in the right lateral sub-costal area ?2-possible herniation superior to the mesh in the midline and possible herniation in the left aspect lateral to the mesh and possible herniation between the 2 pieces of mesh located in the midline at the umbilicus in the upper ?abdominal area. ? The patient notes questionable symptoms of bowel obstruction and notes nausea or vomiting. ?She presented to [facility] emergency department on January 01, 2019. ?Plain x-rays demonstrated no true signs of bowel obstruction. ? Rebeka was referred for evaluation and treatment. ??She states she has relatively chronic pain in the left upper quadrant. ?She questions whether this could be related to her mesh. ?The patient states she is completely quit smoking and he has used no nicotine products since 2017. should before that noted appendectomy, section, cholecystectomy, and tubal ligation. She had presented to Hospital with abdominal pain and bowel obstructive type symptoms. she was transferred to [facility]. she was taken for splitter laparotomy underwent lysis of adhesions on June 10, 2019. The patient was found a previous Blanca-en-Y reconstruction that she apparently denied previous gastric surgery. She was noted to have adhesions and was felt to be possibly taking one of the loops. The previously placed mesh was felt to be poorly incorporated and was removed. After extensive lysis of adhesions, her incision was closed in a primary fashion. the patient noted significant incisional discomfort since surgery. She noted discomfort and redness of her incision and decreased urine output some nausea and poor appetite. She presented to [facility] emergency department. She was found to have a temperature of 99 3. She was tachycardic hernia 136. Was elevated at 3.4 CT scan was obtained of the abdomen pelvis which demonstrated postsurgical inflammatory changes and there was felt to be likely a subcutaneous collection in the lower abdominal incision. This was partially opened the emergency department by Dr. Castillo returning some pus. This was cultured. The patient was given Zosyn and vancomycin. Gram stain of the wound culture returned as 1+ gram-positive cocci. The patient also noted looser stools before presenting to [facility]. He has not had diarrhea since admission to the hospital. with hydration, the patient's lactic acid level has normalized. Her white blood cell count is also decreased this morning. patient is doing well with wet-to-dry packings and treated with IV antibiotics. Her wound culture returned as coagulase-negative Staphylococcus. The patient then noted worsening abdominal pain and discomfort. CT scan and KUB demonstrated no obstructive symptoms. The patient was restarted on orals which she tolerated. She was transitioned to Bactrim and able to be discharged to home. - Physical Exam General: Alert, Oriented x3, Cooperative Lungs: Clear to auscultation, Normal air movement Cardiovascular: Regular rate, No murmurs Abdomen: Bowel Sounds Present, Soft, Non Tender Vital Signs Temp Pulse Resp BP Pulse Ox 97.5 F L 98 17 144/78 H 94 06/23/19 18:50 06/23/19 18:50 06/23/19 18:50 06/23/19 18:50 06/23/19 18:50 Oxygen Delivery Method Room Air Weight: 139.2 kg Body Mass Index (BMI) 51.0 Finger Stick Blood Glucose 109 Intake and Output for Last 24 Hours 06/22/19 06/23/19 06/24/19 23:59 23:59 23:59 Intake Total 4345.62 / 4345.62 3660.00 / 3660.00 Output Total 400 / 800 400 / 400 Balance 3945.62 / 3545.62 3260.00 / 3260.00 Microbiology Past 72 Hours 06/19/19 18:35 Gram Stain - Final Wound - Abdominal Wound Culture - Final Staphylococcus epidermidis 06/19/19 19:10 Blood Culture - Preliminary Blood Culture (Wb) - Left Hand No growth in 48 hours. 06/19/19 18:45 Blood Culture - Preliminary Blood Culture (Wb) - Anticubital Left No growth in 48 hours. 06/20/19 14:30 Enteric Bacteriology - Final Stool Discharge Activity: May Shower Call your doctor if your incision/area has: Increased Pain/ Swelling Call your doctor if you observe: Fever of 101 or Higher, Inability to have a bowel movement Cleanse incision/area with: Soap & Water Home Medications: Medications to take at Discharge Oxycodone HCl/Acetaminophen [Percocet 5/325] 1 tab PO Q6H PRN PRN 5 Days #14 tab 06/23/19 Sulfamethoxazole/Trimethoprim [Bactrim Ds Tablet] 1 ea PO BID #20 tab 06/23/19 Following Prescrptions Were Given to Patient: Sulfamethoxazole/Trimethoprim [Bactrim Ds Tablet] 1 ea PO BID #20 tab Prescription Printed Oxycodone HCl/Acetaminophen [Percocet 5/325] 1 tab PO Q6H PRN PRN 5 Days #14 tab PRN Reason: Pain Prescription Printed Primary Care Physician: Jose Barron MD [Primary Care Provider] - Please Follow Up With: Eros Yadav MD When: 1 week Medical Necessity - Tobacco Use Smoking Status: Current some day smoker Tobacco Use: Cigarettes Meaningful Use Info Meaningful Use Diagnoses (Choose all that apply): None applicable
--- NOTE | 2019-06-25 15:18 | CASEMGMT ---
MARIE DC PHONE CALL DC DATE: 06/23/19 DC Disposition: Home Diagnosis on Discharge: Wound infection LACE/STRATA: 16/ Attempted call to listed phone number- no active phone number. Mireille XIONG RN ACM
== END 2019-06-23 18:56 | disposition home or self-care (01) | DRG 721 ==
LOC: ED 20:27 → PCU 21:39
PROVIDERS: Family Medicine; Admitting Provider Surgery; Emergency Provider Emergency Medicine; Family Provider Family Medicine; PCP Family Medicine; Visit Provider Student in an Organized Health Care Education/Training Program
DX: T81.49XA Infection following a procedure, other surgical site, initial encounter (principal); L03.311 Cellulitis of abdominal wall; Y83.8 Other surgical procedures as the cause of abnormal reaction of the patient, or of later complication, without mention of misadventure at the time of the procedure; F17.210 Nicotine dependence, cigarettes, uncomplicated; Z68.43 Body mass index [BMI] 50.0-59.9, adult; E66.01 Morbid (severe) obesity due to excess calories; R55 Syncope and collapse; E87.6 Hypokalemia; Z90.49 Acquired absence of other specified parts of digestive tract
CPT/HCPCS: 36415; 71046; 72193; 74019; 74176; 80048; 80202; 81001; 83605; 83735; 84484; 85025; 87040; 87070; 87077; 87186; 87205; 87493; 87506; 87640; 93005; 94762; 97161; 97802; 99285; J7030; J7040; J7050; Q9967; A4216; J3490

== ENCOUNTER 2019-07-18 07:54 | Observation (INO) | payer MEDICAID, SELFPAY ==
[2019-06-19 22:19] VITALS: BMI 51.0
[2019-07-18] VITALS (9 sets, daily range): BP systolic 124–162; BP diastolic 61–92; PULSE 79–122; RESP 12–20; TEMP 36.2–36.8; O2SAT 94–99; BMI 51.4
--- NOTE | 2019-07-18 08:17 | ED.VIS.GI ---
History of Present Illness Chief Complaint: Wound Informant: Patient - Abdominal Pain/Flank Pain Onset: Days - 2 Context: Gradual Onset Timing: Continuous Quality: Aching Location: - - around lower aspect of midline surgical inc and LLQ Current Severity: Severe Maximum Severity: Severe Worsened by: - - vomiting Relieved by: Nothing - Nausea/Vomiting/Emesis GI Symptom: Nausea, Vomiting Onset: Yesterday Quality: Negative for: Blood streaks - Diarrhea/Melena/Hematochezia GI Symptom: Diarrhea. Negative for: Melena, Hematochezia Stool Quality: Watery Severity: Moderate Associated Symptoms: - - Decreased urine output. Negative for: Dysuria, Frequency, Hematuria, Urgency Narrative: Almost 1 month ago, patient had a bowel obstruction that required surgery, she had significant lysis of adhesions. She ended up having the wound complicated by infection and required opening of the wound, cleansing/debridement outside of the operating room, and has been packing the wound with wet to dry dressings for healing by secondary intent since then. 2 days ago, she started having increased pain in the wound, last night she started having fevers up to 101, profuse vomiting and watery diarrhea, and a significant increase in pain around the wound and the left lower quadrant. She has been following closely with Dr. Yadav, she discussed with him this morning and given the symptoms he advised that she come to the ER for further evaluation and probable imaging. She has had no known sick contacts. No recent travel out of the area since her surgery, currently not on any antibiotics. She states there was discharge from the wound this morning that was foul-smelling and she says that is new. - Past Medical History (1) Anxiety and depression Status: Chronic (2) GERD (gastroesophageal reflux disease) Status: Chronic (3) Morbid obesity Status: Chronic (4) JAGJIT (obstructive sleep apnea) Status: Chronic Past Medical History - Allergies and Home Meds Allergies/Adverse Reactions: Allergies ketorolac tromethamine [From Toradol] Allergy (Verified 07/18/19 07:54) Shortness of breath ondansetron HCl [From Zofran] Allergy (Verified 07/18/19 07:54) Shortness of breath Primary Care Physician: Jose Barron MD [Primary Care Provider] - Surgical History: appendectomy, cholecystectomy, herniorrhaphy - x6. Patient reported that a mass was removed in her left lower quadrant. She reported that after she had an infection at the site where the mass was removed for which reason she had another surgery and then a wound VAC was placed., - - 3- sections, ventral and incisional hernia repairs with mesh x 6, cholecystectomy, appendectomy, tonsillectomy, recent exploratory laparotomy with lysis of adhesions and possible mesh removal. Lives: With Family Smoking Status: Current some day smoker - Family History Maternal Family History: Reports: Diabetes, Heart Disease, Hypertension, Stroke Paternal Family History: Reports: Cancer - Colon, Diabetes, Heart Disease, Hypertension Review of Systems General: Reports: Chills, Fever, Malaise. Denies: Sweats Eyes: Denies: Visual changes - bilaterally, Diplopia ENT: Denies: Rhinorrhea, Sore throat Cardiovascular: Denies: Chest pain, Palpitations Respiratory: Denies: Dyspnea, Cough, Dyspnea on exertion Gastrointestinal: Reports: Abdominal pain, Nausea, Vomiting, Diarrhea. Denies: Melena, Hematochezia Genitourinary: Denies: Dysuria, Hematuria, Frequency Musculoskeletal: Denies: Back pain, Extremity Pain Skin: Reports: Wounds. Denies: Rash Neurological: Denies: Headache, Weakness, Numbness Physical Exam Vital Signs/Narrative: Vital Signs Temp Pulse Resp BP Pulse Ox 07/18/19 08:08 98.3 F 122 H 17 162/75 H 97 07/18/19 07:54 98.3 F 122 H 17 162/75 H 97 Inital Vital Signs reviewed: Yes General: Well nourished, Well developed, No Acute Distress Head: Normocephalic, Atraumatic Eyes: Perrl, EOMI ENT: Moist mucous membranes, No rhinorrhea Neck: Supple, Nontender Cardiovascular: Regular rate, Regular rhythm, No murmurs, Tachycardia Respiratory: No distress, CTA bilaterally, Chest nontender Abdomen: Soft, Nondistended, Normal bowel sounds, Tender - severely tender around superficially open midline surgical inc at caudal aspect, and LLQ; otherwise, nontender, Hypoactive bowel sounds - but present Back: Nontender, Normal Inspection. Negative for: CVA tenderness Extremities: Nontender, No edema Skin: Normal color, No Trauma, - - Infraumbilical surgical incision healing by secondary intent without expressible discharge or pus on dressing although there is a scant amount of dried material, no surrounding erythema, no necrotic tissue; this is approximately 5-6 cm in length. The rest of the surgical incision is healing well without tenderness or erythema. Neurological: Alert, Oriented x3, Cranial nerves II-XII grossly intact, Normal Strength, Normal Sensation Psychological: Normal Mood, Tearful - and axious Diagnostic/Tx/Re-eval Impressions Abdomen/Pelvis CT 07/18/19 08:29 IMPRESSION: This patient's had a previous laparotomy and there is some focal dilatation of the aorta below the small intestine of uncertain etiology. A localized ileus versus partial mechanical small bowel obstruction or other diagnostic possibilities. Electronically Signed: Regis Quijano, at 10:51 EDT Tel , Service support , 07/18/19 08:29 CT Abd [Abdomen/Pelvis WITH Contrast] [CT] Stat Laboratory Results 07/18/19 07/18/19 07/18/19 08:35 08:35 08:35 WBC 7.5 RBC 4.23 Hgb 13.0 Hct 40.3 MCV 95.3 MCH 30.7 MCHC 32.3 RDW Std Deviation 43.4 RDW Coeff of Juan 12.5 Plt Count 231 MPV 8.9 Immature Gran % (Auto) 0.700 Neut % (Auto) 64.5 Lymph % (Auto) 25.4 [place] % (Auto) 6.6 Eos % (Auto) 2.4 Baso % (Auto) 0.4 Absolute Neuts (auto) 4.9 Absolute Lymphs (auto) 1.91 Nucleated RBC % 0 Sodium 137 Potassium 3.3 L Chloride 107 Carbon Dioxide 22.0 Anion Gap 8 BUN 10 Creatinine 0.69 Estim Creat Clear Calc 103.38 Est GFR (MDRD) Af Amer 125 Est GFR (MDRD) Non-Af 103 BUN/Creatinine Ratio 14.4 Glucose 152 H Lactic Acid 3.4 H Calcium 8.7 Total Bilirubin 0.10 L AST 13 L ALT 27 Alkaline Phosphatase 54 Total Protein 7.0 Albumin 3.6 Globulin 3.4 Albumin/Globulin Ratio 1.1 Urine Color Urine Clarity Urine pH Ur Specific Antonito Urine Protein Urine Glucose (UA) Urine Ketones Urine Occult Blood Urine Nitrite Urine Bilirubin Urine Urobilinogen Ur Leukocyte Esterase Urine RBC Urine WBC Ur Squamous Epith Cells Urine Bacteria Urine Mucus 07/18/19 10:45 WBC RBC Hgb Hct MCV MCH MCHC RDW Std Deviation RDW Coeff of Juan Plt Count MPV Immature Gran % (Auto) Neut % (Auto) Lymph % (Auto) [place] % (Auto) Eos % (Auto) Baso % (Auto) Absolute Neuts (auto) Absolute Lymphs (auto) Nucleated RBC % Sodium Potassium Chloride Carbon Dioxide Anion Gap BUN Creatinine Estim Creat Clear Calc Est GFR (MDRD) Af Amer Est GFR (MDRD) Non-Af BUN/Creatinine Ratio Glucose Lactic Acid Calcium Total Bilirubin AST ALT Alkaline Phosphatase Total Protein Albumin Globulin Albumin/Globulin Ratio Urine Color Yellow Urine Clarity Clear Urine pH 6.0 Ur Specific Antonito 1.015 Urine Protein Negative Urine Glucose (UA) Normal Urine Ketones Negative Urine Occult Blood Negative Urine Nitrite Negative Urine Bilirubin Negative Urine Urobilinogen Normal Ur Leukocyte Esterase Negative Urine RBC 0 SEEN Urine WBC 0 SEEN Ur Squamous Epith Cells 5-10 SEEN Urine Bacteria 0 SEEN Urine Mucus 0 SEEN - Medical Decision Making Patient was really in severe pain. She was treated with Dilaudid and Phenergan, she was still nauseated but she was given a good dose and is allergic to ondansetron so I did not repeat that. Discussed with surgery who advised performing CT with oral contrast if possible, which provided a bit of a delay because of her nausea and vomiting. CT shows no abscess. There is an ileus versus partial small bowel obstruction pattern, my suspicion is that she has gastroenteritis given her other symptoms, but I discussed again with Dr. Yadav who given her recent history prefers admission to medical service and he will consult, and also request stool cultures be obtained. She has had no diarrhea yet while in the emergency department. ED Disposition - Plan for ED Patient: Disposition: Acute Care Hospital [facility] Diagnosis: Postoperative lower abdominal pain, Nausea vomiting and diarrhea, Hypokalemia due to excessive gastrointestinal loss of potassium Referrals: Jose Barron MD [Primary Care Provider] -
--- NOTE | 2019-07-18 08:29 | CT_ITS ---
STUDY: CT ABDOMEN AND PELVIS WITH CONTRAST REASON FOR EXAM: Female, 34 years old. RADIATION DOSAGE (If Supplied By Facility): CTDIvol = ( 17.08 ) mGy, DLP = ( 1415.55 ) mGycm TECHNIQUE: Transaxial images were obtained from the dome of the diaphragm to the symphysis pubis without oral contrast. IV/Oral Isovue 300 100ml was administered. Sagittal and coronal images were reconstructed. Individualized dose optimization techniques were used for this CT. COMPARISON: Previous CT scan of the abdomen and pelvis obtained on 06/22/2019 FINDINGS: The visualized lung bases are unremarkable. The visualized portions of the heart are within normal limits. Normal liver. Normal gallbladder and extrahepatic biliary system. Normal spleen. Normal pancreas. Normal bilateral adrenal glands. Normal right kidney. Normal left kidney. Normal visualized stomach. There is focal dilatation of a small intestine which appears to be in the distal jejunum proximal ileum. This is in the mid abdomen and is of uncertain etiology. This could be due to prior surgery or a localized ileus. A partial mechanical small bowel obstruction, possibly from an adhesion cannot be completely excluded.. Normal colon. The appendix is not visualized and no pericecal inflammatory reaction is seen. The patient's had bilateral partial salpingectomy. Normal abdominal aorta. Normal inferior vena cava. Normal retroperitoneum. Normal urinary bladder. A surgical scar is noted in the mid abdomen probably from a previous laparotomy. Normal osseous structures. CT/Abdomen/Pelvis WITH Contrast IMPRESSION: This patient's had a previous laparotomy and there is some focal dilatation of the aorta below the small intestine of uncertain etiology. A localized ileus versus partial mechanical small bowel obstruction or other diagnostic possibilities. Electronically Signed: Regis Quijano, at 10:51 EDT Tel , Service support ,
[2019-07-18] MEDS: 0.9% Normal Saline 1,000 ML 1000 ML IV (08:35)
[2019-07-18] MEDS: proMETHazine 25 MG/ML Syringe 12.5 MG IV (08:35)
[2019-07-18] MEDS: HYDROmorphone 1 MG/ML Syringe IV ×2 (08:35→11:25)
[2019-07-18 08:49] LABS: Absolute Lymphocyte Count 1.91 X10^3/uL (0.83-4.51); Absolute Neutrophil Count 4.9 X10^3/uL (2.0-7.7); Basophil# 0.03 X10^3/uL; Basophil% 0.4 % (0-1); Eosinophil# 0.18 X10^3/uL; Eosinophils% 2.4 % (0-5); Hematocrit 40.3 % (37-47); Lymphocyte # 1.91 X10^3/ul (4.0); Lymphocyte % 25.4 % (19-41); Mean Corp Hgb Conc 32.3 g/dL (32-36); Mean Corpuscular Hgb 30.7 pg (27.0-32.0); Mean Corpuscular Volume 95.3 fL (81-99); Mean Platelet Vol. 8.9 fl (6.2-12.0); Monocyte% 6.6 % (0-10); NRBC Flagged by Analyzer 0 % (0-5); Neutrophil # 4.86 X10^3/uL (2.7-7.7); Neutrophil % 64.5 % (47-70); Platelet Count 231 K/mm3 (150-450); RBC Distribution Width CV 12.5 % (11.6-14.6); RBC Distribution Width SD 43.4 fl (35.1-43.9); Red Blood Count 4.23 M/mm3 (4.2-5.4); White Blood Count 7.5 K/mm3 (4.4-11.0)
[2019-07-18 09:04] LABS: ALB/GLOB Ratio 1.1 RATIO (0.9-2.4); AST(SGOT) 13 U/L (15-37); Alanine Aminotransfer ALT/SGPT 27 U/L (13-56); Albumin, Serum 3.6 g/dL (3.2-5.0); Alkaline Phosphatase 54 U/L (45-117); Anion Gap 8 (5-15); BUN 10 mg/dL (7-18); BUN/Creat Ratio 14.4 RATIO (10-20); Calcium,Total 8.7 mg/dL (8.5-10.1); Chloride 107 mmol/L (98-107); Creatinine, Serum 0.69 mg/dL (0.55-1.02); EST Glomerular Filtration Rate 103 mL/min (>60); Est Glom Filt Rate - Afr Amer 125 mL/min (>60); Estimated Creatinine Clearance 103.38 ml/min; Globulin 3.4 g/dL (2.2-4.2); Glucose 152 mg/dL (74-106); Potassium 3.3 mmol/L (3.5-5.1); Sodium Level 137 mmol/L (136-145)
[2019-07-18 09:15] LABS: Lactic Acid 3.4 mmol/L (0.4-2.0)
[2019-07-18] MEDS: HYDROmorphone 1 MG/ML Syringe 2 MG IV (09:38)
[2019-07-18 10:48] LABS: Bacteria 0 SEEN /hpf (None Seen); Mucous, Urine 0 SEEN /hpf (<or=2+); Red Blood Cells-Urine 0 SEEN /hpf (0-5); White Blood Cells 0 SEEN /hpf (0-5)
[2019-07-18 10:57] LABS: Color, Urine Yellow (Yellow); Glucose, Dipstick Normal (Normal); Ketone-Dipstick Negative (Negative); Leukocyte Esterase-Dipstick Negative /ul (Negative); Nitrite-Dipstick Negative (Negative); Occult Blood-Urine Negative /ul (Negative); Protein-Dipstick Negative (Negative); Specific Gravity, Urine 1.015 (1.002-1.030); Urine Bilirubin Dipstick Negative (Negative); Urine Clarity Clear (Clear); Urine Urobilinogen Normal (Normal)
[2019-07-18 11:03] LABS: Squamous Epithelial Cells - UA 5-10 SEEN /hpf (5-10)
--- NOTE | 2019-07-18 12:32 | PCM.HP.STD ---
History of Present Illness Date of Admission: 07/18/19 Chief Complaint: abdominal pain, nausea The patient is a 34 year old F with past medical history as listed was admitted with complaint of abdominal pain 1 day duration. Pain is well-known to me from her previous admission about a month ago when she came in with similar complaints as well as discharge from a surgical site was managed for sepsis due to post surgical infection. Patient was seen a little over a month ago at [facility] ED for small bowel obstruction and was subsequently sent to [facility] where she had surgery done. She subsequently developed pain at the surgical site and on admission, CT of the pelvis showed postsurgical inflammatory changes within the transverse rectus sheath bilaterally on the right as well as in the fat of the lower abdominal anterior pelvic cavity but no well-defined abscess or collection. Subsequently she developed abdominal pain was thought to have a possible ileus versus small bowel obstruction, however imaging done ruled this out and it appeared that she had had a Blanca-en-Y surgery years ago for suspected bile reflux. Symptoms resolved and she was discharged and so she presented again today with a complaint of abdominal pain. She has had associated nausea but no vomiting and is having diarrhea and passing gas. She states that slips both obliques and her surgical scar but is mainly well-healed. Review of systems is otherwise negative. In the ED vitals were essentially stable. Chemistry was significant for potassium of 3.3 and lactic acid of 3.4. CBC showed no leukocytosis and was unremarkable. CT of the abdomen and pelvis showed focal dilatation of the aorta below the small intestine of uncertain etiology and a localized ileus versus partial small bowel mechanical obstruction or other diagnostic possibilities. She has been admitted to be managed for suspected intestinal ileus. General surgery was consulted from ED. [] Past Medical History Past Medical History (Chronic Problems): Chronic Problems (Last Reviewed 10/10/18 @ 02:33 by Alan Torres MD) Anxiety and depression (Chronic) Morbid obesity (Chronic) JAGJIT (obstructive sleep apnea) (Chronic) History of anxiety disorder (Chronic) GERD (gastroesophageal reflux disease) (Chronic) Medical History: Medical History (Last Reviewed 10/10/18 @ 02:33 by Alan Torres MD) History of anxiety disorder (Chronic) Z86.59 GERD (gastroesophageal reflux disease) (Chronic) K21.9 Partial small bowel obstruction (Resolved) Vomiting (Resolved) R11.10 Allergies ketorolac tromethamine [From Toradol] Allergy (Verified 07/18/19 07:54) Shortness of breath ondansetron HCl [From Zofran] Allergy (Verified 07/18/19 07:54) Shortness of breath Surgical History: Surgical History (Last Reviewed 10/10/18 @ 02:33 by Alan Torres MD) Recurrent ventral hernia with incarceration (Resolved) K43.0 Surgical History: appendectomy, cholecystectomy, herniorrhaphy - x6. Patient reported that a mass was removed in her left lower quadrant. She reported that after she had an infection at the site where the mass was removed for which reason she had another surgery and then a wound VAC was placed., - - 3- sections, ventral and incisional hernia repairs with mesh x 6, cholecystectomy, appendectomy, tonsillectomy, recent exploratory laparotomy with lysis of adhesions and possible mesh removal. Psychiatric History: Anxiety LABOR RELATIONS DIRECTOR History: No pertinent LABOR RELATIONS DIRECTOR history Lives: With Family Smoking Status: Current every day smoker - *Family History Maternal History Items: Diabetes, Heart Disease, Hypertension, Stroke Paternal History Items: Cancer - Colon, Diabetes, Heart Disease, Hypertension Review of Systems Constitutional: Reports: Malaise, Weakness, Fatigue. Denies: Anorexia, Chills, Fever Eyes: Denies: Blurred vision HEENT: Denies: Head Aches, Sinus Congestion, Sinus Drainage Cardiovascular: Denies: Chest Pain, Palpitations Respiratory: Denies: Cough, Shortness of Breath, Shortness of breath at rest, Shortness of breath upon exertion, Sputum production Gastrointestinal: Reports: Abdominal Pain, Diarrhea, Nausea. Denies: Dyspepsia, Vomiting Genitourinary: Denies: Dysuria Musculoskeletal: Denies: Joint Pain, Joint Tenderness Skin: Denies: Rash, Wounds Neurological: Denies: Numbness, Tingling, Focal weakness Psychiatric: Denies: Anxiety, Depression, Homicidal Ideations, Suicidal Ideations Hematologic/ Lymphatic: Denies: Easy Bruising, Easy Bleeding VTE Information - Inpt Only VTE Present on Admission: No VTE Pharm Prophylaxis ordered?: Yes Patient Problems: Active and Suspected Problems (Last Reviewed 10/10/18 @ 02:33 by Alan Torres MD) Postoperative lower abdominal pain (Acute) Nausea vomiting and diarrhea (Acute) Hypokalemia due to excessive gastrointestinal loss of potassium (Acute) - Physical Exam General: Alert, Oriented x3, Cooperative HEENT: Atraumatic, PERRLA, EOMI, Normocephalic Oral: Dry Mucosa Neck: Supple Lungs: Clear to auscultation, Normal air movement, No rhonchi, No wheeze Cardiovascular: Regular rate, Regular Rhythm, Normal S1, Normal S2, No murmurs Abdomen: Bowel Sounds Present, Soft, No Hepato-splenomegaly, - - moderate left lower quadrant tenderness, no guarding or rebound tenderness. . laparotomy surgical scar looks well healed Extremities: No clubbing, No cyanosis, No edema, Capillary Refill Less than 3 Seconds Skin: No rashes, No breakdown Musculoskeletal: No Tenderness to Palpation of Joints or Extremities Lymphatic: No Cervical, Supraclavicular, or Inguinal Adenopathy Neurological: Cranial nerves II-XII grossly intact, Neuro grossly intact, Motor Exam 5/5 strength throughout Psych/Mental Status: Normal Affect, Appropriate, Alert and oriented to time, place, person, mood and affect Vital Signs Temp Pulse Resp BP Pulse Ox 97.8 F 79 12 124/61 H 94 07/18/19 11:00 07/18/19 11:19 07/18/19 11:19 07/18/19 11:19 07/18/19 11:19 Oxygen Delivery Method Room Air Weight: 308 lb 13.882 oz Body Mass Index (BMI) 51.4 Finger Stick Blood Glucose 109 Intake and Output for Last 24 Hours 07/16/19 07/17/19 07/18/19 23:59 23:59 23:59 Intake Total 1000 / 1000 Balance 1000 / 1000 Laboratory Tests Past 24 Hrs 07/18/19 07/18/19 07/18/19 08:35 08:35 08:35 WBC 7.5 RBC 4.23 Hgb 13.0 Hct 40.3 MCV 95.3 MCH 30.7 MCHC 32.3 RDW Std Deviation 43.4 RDW Coeff of Juan 12.5 Plt Count 231 MPV 8.9 Immature Gran % (Auto) 0.700 Neut % (Auto) 64.5 Lymph % (Auto) 25.4 Grimes % (Auto) 6.6 Eos % (Auto) 2.4 Baso % (Auto) 0.4 Absolute Neuts (auto) 4.9 Absolute Lymphs (auto) 1.91 Nucleated RBC % 0 Sodium 137 Potassium 3.3 L Chloride 107 Carbon Dioxide 22.0 Anion Gap 8 BUN 10 Creatinine 0.69 Estim Creat Clear Calc 103.38 Est GFR (MDRD) Af Amer 125 Est GFR (MDRD) Non-Af 103 BUN/Creatinine Ratio 14.4 Glucose 152 H Lactic Acid 3.4 H Calcium 8.7 Total Bilirubin 0.10 L AST 13 L ALT 27 Alkaline Phosphatase 54 Total Protein 7.0 Albumin 3.6 Globulin 3.4 Albumin/Globulin Ratio 1.1 Urine Color Urine Clarity Urine pH Ur Specific [place] Urine Protein Urine Glucose (UA) Urine Ketones Urine Occult Blood Urine Nitrite Urine Bilirubin Urine Urobilinogen Ur Leukocyte Esterase Urine RBC Urine WBC Ur Squamous Epith Cells Urine Bacteria Urine Mucus 07/18/19 10:45 WBC RBC Hgb Hct MCV MCH MCHC RDW Std Deviation RDW Coeff of Juan Plt Count MPV Immature Gran % (Auto) Neut % (Auto) Lymph % (Auto) Grimes % (Auto) Eos % (Auto) Baso % (Auto) Absolute Neuts (auto) Absolute Lymphs (auto) Nucleated RBC % Sodium Potassium Chloride Carbon Dioxide Anion Gap BUN Creatinine Estim Creat Clear Calc Est GFR (MDRD) Af Amer Est GFR (MDRD) Non-Af BUN/Creatinine Ratio Glucose Lactic Acid Calcium Total Bilirubin AST ALT Alkaline Phosphatase Total Protein Albumin Globulin Albumin/Globulin Ratio Urine Color Yellow Urine Clarity Clear Urine pH 6.0 Ur Specific [place] 1.015 Urine Protein Negative Urine Glucose (UA) Normal Urine Ketones Negative Urine Occult Blood Negative Urine Nitrite Negative Urine Bilirubin Negative Urine Urobilinogen Normal Ur Leukocyte Esterase Negative Urine RBC 0 SEEN Urine WBC 0 SEEN Ur Squamous Epith Cells 5-10 SEEN Urine Bacteria 0 SEEN Urine Mucus 0 SEEN Diagnostic Data Abdomen/Pelvis CT 07/18/19 08:29 IMPRESSION: This patient's had a previous laparotomy and there is some focal dilatation of the aorta below the small intestine of uncertain etiology. A localized ileus versus partial mechanical small bowel obstruction or other diagnostic possibilities. Electronically Signed: Regis Quijano, at 10:51 EDT Tel , Service support , Assessment/Plan All Active Problems (Last Reviewed 10/10/18 @ 02:33 by Alan Torres MD) Severe sepsis (Acute) Cellulitis, abdominal wall (Acute) Sinus tachycardia by electrocardiogram (Acute) Elevated BP without diagnosis of hypertension (Acute) Postoperative lower abdominal pain (Acute) Nausea vomiting and diarrhea (Acute) Hypokalemia due to excessive gastrointestinal loss of potassium (Acute) Intractable abdominal pain (Acute) Partial small bowel obstruction (Resolved) Vomiting (Resolved) Recurrent ventral hernia with incarceration (Resolved) 34 y/o admitted with a complaint of abdominal pain 1. Intestinal ileus admit to med surg CT abdomena nd pelvis showed ileus vs partial mechanical small bowel obstruction I am leaning more towards ileus as she was having diarrhea prior to admission and passing gas keep NPO hydrate with IVF normal saline at 1250cc/hr IV morphine prn for pain consult general surgery 2. Lactic acidosis: lactic acid is 3.4. may be due to mild dehydration from diarrhea. Will hydrate and repeat 3. Hypokalemia: potassium is 3.3. Will monitor DVT prophylaxis: lovenox Code Visit OBSV E&M: [id number] Initial observation care L3
[2019-07-18 12:45] LABS: Reflex Lactate? Y
[2019-07-18] MEDS: 0.9% Normal Saline 1,000 ML 125 ML IV (13:36)
[2019-07-18] MEDS: proCHLORPERazine 10 MG/2 ML Vial 5 MG IV ×2 (13:39→23:38)
[2019-07-18] MEDS: Morphine 2 MG/ML Syringe IV ×3 (13:39→20:40)
[2019-07-18] MEDS: 0.9% NaCl Peripheral Flush Adult/Peds IV ×4 (13:41→23:41)
--- NOTE | 2019-07-18 14:03 | NURSING ---
wound photo: abdomen
[2019-07-18 14:09] LABS: Lactic Acid 2.7 mmol/L (0.4-2.0)
[2019-07-18 18:01] LABS: M R Staph aureus DNA By PCR Negative (Negative); Staph aureus DNA By PCR POSITIVE (Negative)
[2019-07-18 18:02] LABS: Probe Check PASS
[2019-07-18] MEDS: proMETHazine 25 MG/ML Syringe IV (18:40)
[2019-07-18] MEDS: 0.9% Normal Saline 1,000 ML 150 ML IV (19:41)
--- NOTE | 2019-07-18 20:43 | CON.PCM_ITS ---
Reason for Consult Date of Consultation: 07/18/19 Reason for Consultation: abdominal pain, loose stools, dizziness History of Present Illness: The patient is a 34 year old F who presents today with loose stools a fever to 101 and dizziness along with persistent abdominal pain. She was seen in the emergency department after she had contacted me at approximate 6 AM with those symptoms and I recommended she present for evaluation. CT scan was obtained and was evaluated is possibly focal dilatation of small bowel of uncertain etiology question whether there was a partial small bowel obstruction present. Given the symptoms and complaints, the patient was admitted. to White blood cell count was unremarkable her other laboratory studies were relatively unremarkable. the patient has a complex past surgical history. Rebeka is a patient I have most recently been following for a postsurgical wound infection. ? ? Rebeka is a 34 year old female with a complaint of?a bulge ?and discomfort ?in her?upper midline incision and the upper left and right lateral upper abdominal areas. ?The patient notes discomfort in this area with lifting, straining and coughing. ?The symptoms have increased, over the past?few?weeks. ? The patient has a past surgical history of appendectomy, cholecystectomy, multiple C-sections. 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 ?The patient developed a wound infection following that the site was opened and a wound VAC applied. ? The patient was otherwise doing relatively well. ?She had what sounds like an open midline incision for a reflux surgical procedure a few years previously. ?Since that time, she has developed multiple midline incisional hernias and has had persistent bowel issues.. ?She apparently had incisional hernia repair without mesh performed prior to her presentation in 2018 at [facility]. ? She initially presented on October 19, 2017 for was felt to be a recurring in cisional hernia with transverse colon included within the hernia. ?She was taken emergently and underwent simple closure through that area in her upper midline. ?This was performed by Dr. Sebastian Marcial ? She then had a recurrence of that site and was transferred to [facility] where she again underwent a recurrent ventral hernia repair with what sounds like simple sutures listed as July 06, 2018. ? She then had recurrence of a hernia at the level of her umbilicus area and she was taken for open repair with a 6.4 cm [place] ventralex mesh placed through the umbilicus on July 12, 2018. ???This was was performed by Dr. Rosetta Miles ? Next the patient had a recurrence in the upper midline area. ?She was taken to the operating suite in September 26, 2018 for recurrent incarcerated ventral hernia and underwent laparoscopic ventral hernia repair with what I believe was a 15 cm [address] ventral ST mesh. ?This was performed by Dr. Sebastian Marcial ? She presented to [facility] emergency department on December 21 with complaints of upper abdominal pain. ???CT scan of the abdomen and pelvis was obtained. ?This was read as a small supraumbilical ventral hernia containing omental fat. ?It stated the transverse colon right adjacent to the area. ? My review the CAT scan suggested 1 - a port site hernia in the right lateral sub-costal area ?2-possible herniation superior to the mesh in the midline and possible herniation in the left aspect lateral to the mesh and possible herniation between the 2 pieces of mesh located in the midline at the umbilicus in the upper ?abdominal area. ? The patient notes questionable symptoms of bowel obstruction and notes nausea or vomiting. ?She presented to [facility] emergency department on January 01, 2019. ?Plain x-rays demonstrated no true signs of bowel obstruction. ? Rebeka was referred for evaluation and treatment. ??She states she has relatively chronic pain in the left upper quadrant. ?She questions whether this could be related to her mesh. ?The patient states she is completely quit smoking and he has used no nicotine products since 2017. ? ? She had presented to [facility] with abdominal pain and bowel obstructive type symptoms. ?She was transferred to [facility]. ??she was taken for exploratory laparotomy and underwent lysis of adhesions with removal of mesh on June 10, 2019. ?The patient was found a previous Blanca-en-Y reconstruction. She apparently denied previous gastric surgery. ?She was noted to have adhesions and was felt to be possibly taking one of the loops. ?The previously placed mesh was felt to be poorly incorporated and was removed. ?After extensive lysis of adhesions, her incision was closed in a primary fashion. ? In discussions with the patient, she relates that she had surgery performed by Dr. Leon in [place] she recalls in 2008 for bile reflux issues. ? We were then able to obtain a copy of the operative note dated October 23, 2018 from .??the listed operation was for bile reflux as a Blanca-en-Y duodenojejunostomy. ?The described procedure was division of the duodenum past the second portion with division of the jejunum, duodenojejunostomy with a downstream enteroenterostomy sounding like a duodenal switch procedure. ? The patient noted significant incisional discomfort since surgery. ?She noted discomfort and redness of her incision and decreased urine output some nausea and poor appetite. ?She presented to [facility] emergency department. ?She was found to have a temperature of 99 3. ?She was tachycardic hernia 136. ?Elevated WBC count. CT scan was obtained of the abdomen pelvis which demonstrated postsurgical inflammatory changes and there was felt to be likely a subcutaneous collection in the lower abdominal incision. ?This was partially opened the emergency department by Dr. Castillo returning some pus. ?This was cultured. ?The patient was given Zosyn and vancomycin. ?Gram stain of the wound culture returned as 1+ gram-positive cocci. ? The patient also noted looser stools before presenting to [facility]. ?She had not had diarrhea since admission to the hospital. ?With hydration, the patient's lactic acid level has normalized. ?Her white blood cell count is also decreased this morning. ?Her wound was opened further notes eye dressings were started. ? The patient is doing well with wet-to-dry packings and treated with IV antibiotics. ?Her wound culture returned as coagulase-negative Staphylococcus. ?The patient then noted worsening abdominal pain and discomfort. ?CT scan and KUB demonstrated no obstructive symptoms. ?The patient was restarted on orals which she tolerated. ?She was transitioned to Bactrim and able to be discharged to home. she had been following me for wound care locally.. She then re-presented to [facility] on July 10, 2019 with increasing abdominal pain. CT scan demonstrated no discrete abnormalities or abscesses. There was felt to be inflammation around the pericolonic fat of the descending colon question to be consistent with omental infarction. She was discharged on July 10, 2019. ? Past Medical History Past Medical History (Chronic Problems): Chronic Problems (Last Reviewed 10/10/18 @ 02:33 by Alan Torres MD) Anxiety and depression (Chronic) Morbid obesity (Chronic) JAGJIT (obstructive sleep apnea) (Chronic) History of anxiety disorder (Chronic) GERD (gastroesophageal reflux disease) (Chronic) Medical History: Medical History (Last Reviewed 10/10/18 @ 02:33 by Alan Torres MD) History of anxiety disorder (Chronic) Z86.59 GERD (gastroesophageal reflux disease) (Chronic) K21.9 Partial small bowel obstruction (Resolved) Vomiting (Resolved) R11.10 Allergies ketorolac tromethamine [From Toradol] Allergy (Verified 07/18/19 07:54) Shortness of breath ondansetron HCl [From Zofran] Allergy (Verified 07/18/19 07:54) Shortness of breath Home Medications: Ambulatory Orders Medication Instructions Recorded NK 07/18/19 Surgical History: Surgical History (Last Reviewed 10/10/18 @ 02:33 by Alan Torres MD) Recurrent ventral hernia with incarceration (Resolved) K43.0 Surgical History: appendectomy, cholecystectomy, herniorrhaphy - x6. Patient reported that a mass was removed in her left lower quadrant. She reported that after she had an infection at the site where the mass was removed for which reason she had another surgery and then a wound VAC was placed., - - 3- sections, ventral and incisional hernia repairs with mesh x 6, cholecystectomy, appendectomy, tonsillectomy, recent exploratory laparotomy with lysis of adhesions and possible mesh removal. 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 Denies: Chills, Fever, Weight Change HEENT: Denies: Head Aches, Sinus Congestion, Sinus Drainage Cardiovascular: Denies: Chest Pain, Palpitations Respiratory: Denies: Cough, Shortness of breath at rest, Sputum production Gastrointestinal: Reports: Abdominal Pain, Diarrhea. Denies: Nausea, Vomiting Genitourinary: Denies: Dysuria Musculoskeletal: Denies: Joint Pain, Joint Tenderness Skin: Denies: Rash, Wounds Neurological: Denies: Numbness, Tingling, Focal weakness Psychiatric: Denies: Anxiety, Depression, Homicidal Ideations, Suicidal Ideations Hematologic/ Lymphatic: Denies: Easy Bruising, Easy Bleeding Patient Problems: Active and Suspected Problems (Last Reviewed 10/10/18 @ 02:33 by Alan Torres MD) Postoperative lower abdominal pain (Acute) Nausea vomiting and diarrhea (Acute) Hypokalemia due to excessive gastrointestinal loss of potassium (Acute) - Physical Exam General: Alert, Oriented x3, Cooperative Lungs: Clear to auscultation, Normal air movement Cardiovascular: Regular rate, No murmurs Abdomen: Bowel Sounds Present, Soft, Non Tender Vital Signs Temp Pulse Resp BP Pulse Ox 97.7 F L 85 18 125/68 H 98 07/18/19 19:32 07/18/19 19:32 07/18/19 19:32 07/18/19 19:32 07/18/19 19:32 Oxygen Delivery Method Room Air Weight: 140.1 kg Body Mass Index (BMI) 51.4 Finger Stick Blood Glucose 109 Intake and Output for Last 24 Hours 07/16/19 07/17/19 07/18/19 23:59 23:59 23:59 Intake Total 1758.33 / 1758.33 Balance 1758.33 / 1758.33 Laboratory Tests Past 24 Hrs 07/18/19 07/18/19 07/18/19 08:35 08:35 08:35 WBC 7.5 RBC 4.23 Hgb 13.0 Hct 40.3 MCV 95.3 MCH 30.7 MCHC 32.3 RDW Std Deviation 43.4 RDW Coeff of Juan 12.5 Plt Count 231 MPV 8.9 Immature Gran % (Auto) 0.700 Neut % (Auto) 64.5 Lymph % (Auto) 25.4 [place] % (Auto) 6.6 Eos % (Auto) 2.4 Baso % (Auto) 0.4 Absolute Neuts (auto) 4.9 Absolute Lymphs (auto) 1.91 Nucleated RBC % 0 Sodium 137 Potassium 3.3 L Chloride 107 Carbon Dioxide 22.0 Anion Gap 8 BUN 10 Creatinine 0.69 Estim Creat Clear Calc 103.38 Est GFR (MDRD) Af Amer 125 Est GFR (MDRD) Non-Af 103 BUN/Creatinine Ratio 14.4 Glucose 152 H Lactic Acid 3.4 H Calcium 8.7 Total Bilirubin 0.10 L AST 13 L ALT 27 Alkaline Phosphatase 54 Total Protein 7.0 Albumin 3.6 Globulin 3.4 Albumin/Globulin Ratio 1.1 Urine Color Urine Clarity Urine pH Ur Specific [place] Urine Protein Urine Glucose (UA) Urine Ketones Urine Occult Blood Urine Nitrite Urine Bilirubin Urine Urobilinogen Ur Leukocyte Esterase Urine RBC Urine WBC Ur Squamous Epith Cells Urine Bacteria Urine Mucus S.aureus Protein A PCR MRSA (PCR) 07/18/19 07/18/19 07/18/19 10:45 13:12 13:50 WBC RBC Hgb Hct MCV MCH MCHC RDW Std Deviation RDW Coeff of Juan Plt Count MPV Immature Gran % (Auto) Neut % (Auto) Lymph % (Auto) [place] % (Auto) Eos % (Auto) Baso % (Auto) Absolute Neuts (auto) Absolute Lymphs (auto) Nucleated RBC % Sodium Potassium Chloride Carbon Dioxide Anion Gap BUN Creatinine Estim Creat Clear Calc Est GFR (MDRD) Af Amer Est GFR (MDRD) Non-Af BUN/Creatinine Ratio Glucose Lactic Acid 2.7 H Calcium Total Bilirubin AST ALT Alkaline Phosphatase Total Protein Albumin Globulin Albumin/Globulin Ratio Urine Color Yellow Urine Clarity Clear Urine pH 6.0 Ur Specific [place] 1.015 Urine Protein Negative Urine Glucose (UA) Normal Urine Ketones Negative Urine Occult Blood Negative Urine Nitrite Negative Urine Bilirubin Negative Urine Urobilinogen Normal Ur Leukocyte Esterase Negative Urine RBC 0 SEEN Urine WBC 0 SEEN Ur Squamous Epith Cells 5-10 SEEN Urine Bacteria 0 SEEN Urine Mucus 0 SEEN S.aureus Protein A PCR POSITIVE H MRSA (PCR) Negative 07/18/19 17:59 WBC RBC Hgb Hct MCV MCH MCHC RDW Std Deviation RDW Coeff of Juan Plt Count MPV Immature Gran % (Auto) Neut % (Auto) Lymph % (Auto) [place] % (Auto) Eos % (Auto) Baso % (Auto) Absolute Neuts (auto) Absolute Lymphs (auto) Nucleated RBC % Sodium Potassium Chloride Carbon Dioxide Anion Gap BUN Creatinine Estim Creat Clear Calc Est GFR (MDRD) Af Amer Est GFR (MDRD) Non-Af BUN/Creatinine Ratio Glucose Lactic Acid 2.0 Calcium Total Bilirubin AST ALT Alkaline Phosphatase Total Protein Albumin Globulin Albumin/Globulin Ratio Urine Color Urine Clarity Urine pH Ur Specific [place] Urine Protein Urine Glucose (UA) Urine Ketones Urine Occult Blood Urine Nitrite Urine Bilirubin Urine Urobilinogen Ur Leukocyte Esterase Urine RBC Urine WBC Ur Squamous Epith Cells Urine Bacteria Urine Mucus S.aureus Protein A PCR MRSA (PCR) Assessment/Plan All Active Problems (Last Reviewed 10/10/18 @ 02:33 by Alan Torres MD) Severe sepsis (Acute) Cellulitis, abdominal wall (Acute) Sinus tachycardia by electrocardiogram (Acute) Elevated BP without diagnosis of hypertension (Acute) Postoperative lower abdominal pain (Acute) Nausea vomiting and diarrhea (Acute) Hypokalemia due to excessive gastrointestinal loss of potassium (Acute) Intractable abdominal pain (Acute) Partial small bowel obstruction (Resolved) Vomiting (Resolved) Recurrent ventral hernia with incarceration (Resolved) abdominal pain, irregular stools, abnormal appearing CT scan with some bowel distention. My review the CT scan as this is consistent with postsurgical changes consistent with her previous Blanca-en-Y procedure/duodenal switch procedure. The patient's wound appears to be healing appropriately. Would await cultures but would recommend restarting oral feeds starting with clear liquids and if patient otherwise doing well advance diet. once the patient's wound is healed, my plan is to refer her to evaluation to bariatric surgery for possible revision of her duodenal switch/bariatric procedure.
[2019-07-18 22:05] LABS: Reflex Lactate? Y
[2019-07-18 23:34] LABS: Lactic Acid 2.1 mmol/L (0.4-2.0)
[2019-07-18] MEDS: Morphine 4 MG/ML Syringe IV (23:40)
[2019-07-19] MEDS: proMETHazine 25 MG/ML Syringe IV ×4 (02:44→22:34)
[2019-07-19] MEDS: Morphine 4 MG/ML Syringe IV ×7 (02:47→22:35)
[2019-07-19] MEDS: 0.9% Normal Saline 1,000 ML 150 ML IV ×4 (02:50→22:31)
--- NOTE | 2019-07-19 02:52 | NURSING ---
pain and nausea meds given for sharp abd pain 04/18
[2019-07-19 05:41] VITALS: BP 139/77; PULSE 80; RESP 18; TEMP 36.4; O2SAT 98
[2019-07-19] MEDS: proCHLORPERazine 10 MG/2 ML Vial 5 MG IV ×2 (05:46→17:31)
[2019-07-19 07:35] LABS: Absolute Lymphocyte Count 2.22 X10^3/uL (0.83-4.51); Absolute Neutrophil Count 3.6 X10^3/uL (2.0-7.7); Basophil# 0.03 X10^3/uL; Basophil% 0.5 % (0-1); Eosinophil# 0.16 X10^3/uL; Eosinophils% 2.5 % (0-5); Hematocrit 38.8 % (37-47); Hemoglobin 12.1 g/dL (12.0-15.0); Lymphocyte # 2.22 X10^3/ul (4.0); Lymphocyte % 34.5 % (19-41); Mean Corp Hgb Conc 31.2 g/dL (32-36); Mean Corpuscular Hgb 29.9 pg (27.0-32.0); Mean Corpuscular Volume 95.8 fL (81-99); Mean Platelet Vol. 8.9 fl (6.2-12.0); Monocyte# 0.37 X10^3/uL; Monocyte% 5.7 % (0-10); NRBC Flagged by Analyzer 0 % (0-5); Neutrophil # 3.61 X10^3/uL (2.7-7.7); Platelet Count 228 K/mm3 (150-450); RBC Distribution Width CV 12.5 % (11.6-14.6); RBC Distribution Width SD 43.8 fl (35.1-43.9); Red Blood Count 4.05 M/mm3 (4.2-5.4); White Blood Count 6.4 K/mm3 (4.4-11.0)
[2019-07-19 07:46] LABS: Anion Gap 8 (5-15); BUN 7 mg/dL (7-18); BUN/Creat Ratio 13.7 RATIO (10-20); Calcium,Total 8.3 mg/dL (8.5-10.1); Chloride 109 mmol/L (98-107); Creatinine, Serum 0.51 mg/dL (0.55-1.02); EST Glomerular Filtration Rate 146 mL/min (>60); Est Glom Filt Rate - Afr Amer 177 mL/min (>60); Estimated Creatinine Clearance 139.86 ml/min; Glucose 85 mg/dL (74-106); Potassium 3.9 mmol/L (3.5-5.1); Sodium Level 142 mmol/L (136-145)
--- NOTE | 2019-07-19 09:04 | PN_ITS ---
Patient Problems: Active and Suspected Problems (Last Reviewed 10/10/18 @ 02:33 by Alan Torres MD) Postoperative lower abdominal pain (Acute) Nausea vomiting and diarrhea (Acute) Hypokalemia due to excessive gastrointestinal loss of potassium (Acute) Subjective: Patient seen and examined. Abdominal pain is better today. She has been advanced to regular diet she was able to tolerate a liquid diet overnight. She denies any nausea or vomiting. Review of systems otherwise negative. Vitals/I&O's: Vital Signs Temp Pulse Resp BP Pulse Ox 97.5 F L 80 18 139/77 H 98 07/19/19 05:41 07/19/19 05:41 07/19/19 05:41 07/19/19 05:41 07/19/19 05:41 Oxygen Delivery Method Room Air Weight: 308 lb 13.882 oz Body Mass Index (BMI) 51.4 Finger Stick Blood Glucose 109 Intake and Output for Last 24 Hours 07/17/19 07/18/19 07/19/19 23:59 23:59 23:59 Intake Total 1250 / 1250 Output Total 1000 / 1000 Balance 250 / 250 General: Alert, Oriented x3, Cooperative HEENT: Atraumatic, PERRLA, EOMI, Normocephalic Oral: Dry Mucosa Neck: Supple Lungs: Clear to auscultation, Normal air movement, No rhonchi, No wheeze Cardiovascular: Regular rate, Regular Rhythm, Normal S1, Normal S2, No murmurs Abdomen: Bowel Sounds Present, Soft, No Hepato-splenomegaly, - no tenderness, clean dressing over laparotomy scar. Extremities: No clubbing, No cyanosis, No edema, Capillary Refill Less than 3 Seconds Skin: No rashes, No breakdown Musculoskeletal: No Tenderness to Palpation of Joints or Extremities Lymphatic: No Cervical, Supraclavicular, or Inguinal Adenopathy Neurological: Cranial nerves II-XII grossly intact, Neuro grossly intact, Motor Exam 5/5 strength throughout Psych/Mental Status: Normal Affect, Appropriate, Alert and oriented to time, place, person, mood and affect Laboratory Results 07/18/19 08:35: Sodium 137, Potassium 3.3 L, Chloride 107, Carbon Dioxide 22.0, Anion Gap 8, BUN 10, Creatinine 0.69, Estim Creat Clear Calc 103.38, Est GFR (MDRD) Af Amer 125, Est GFR (MDRD) Non-Af 103, BUN/Creatinine Ratio 14.4, Glucose 152 H, Calcium 8.7, Total Bilirubin 0.10 L, AST 13 L, ALT 27, Alkaline Phosphatase 54, Total Protein 7.0, Albumin 3.6, Globulin 3.4, Albumin/Globulin Ratio 1.1 07/18/19 08:35: Lactic Acid 3.4 H 07/18/19 10:45: Urine Color Yellow, Urine Clarity Clear, Urine pH 6.0, Ur Specific [place] 1.015, Urine Protein Negative, Urine Glucose (UA) Normal, Urine Ketones Negative, Urine Occult Blood Negative, Urine Nitrite Negative, Urine Bilirubin Negative, Urine Urobilinogen Normal, Ur Leukocyte Esterase Negative, Urine RBC 0 SEEN, Urine WBC 0 SEEN, Ur Squamous Epith Cells 5-10 SEEN, Urine Bacteria 0 SEEN, Urine Mucus 0 SEEN 07/18/19 13:12: Lactic Acid 2.7 H 07/18/19 13:50: S.aureus Protein A PCR POSITIVE H, MRSA (PCR) Negative 07/18/19 17:59: Lactic Acid 2.0 07/18/19 22:44: Lactic Acid 2.1 H 07/19/19 06:25: WBC 6.4, RBC 4.05 L, Hgb 12.1, Hct 38.8, MCV 95.8, MCH 29.9, MCHC 31.2 L, RDW Std Deviation 43.8, RDW Coeff of Juan 12.5, Plt Count 228, MPV 8.9, Immature Gran % (Auto) 0.800, Neut % (Auto) 56.0, Lymph % (Auto) 34.5, [place] % (Auto) 5.7, Eos % (Auto) 2.5, Baso % (Auto) 0.5, Absolute Neuts (auto) 3.6, Absolute Lymphs (auto) 2.22, Nucleated RBC % 0 07/19/19 06:25: Sodium 142, Potassium 3.9, Chloride 109 H, Carbon Dioxide 25.0, Anion Gap 8, BUN 7, Creatinine 0.51 L, Estim Creat Clear Calc 139.86, Est GFR (MDRD) Af Amer 177, Est GFR (MDRD) Non-Af 146, BUN/Creatinine Ratio 13.7, Glucose 85, Calcium 8.3 L Diagnostic Data Abdomen/Pelvis CT 07/18/19 08:29 IMPRESSION: This patient's had a previous laparotomy and there is some focal dilatation of the aorta below the small intestine of uncertain etiology. A localized ileus versus partial mechanical small bowel obstruction or other diagnostic possibilities. Electronically Signed: Reigs Quijano, at 10:51 EDT Tel , Service support , Current Medications Acetaminophen (Tylenol) 650 mg PO Q6H PRN PRN PRN Reason: mild to moderarte pain Dextrose (D50w Syringe) 0 gm IV X1 PRN; Protocol PRN Reason: Hypoglycemia Enoxaparin Sodium (Lovenox) 40 mg SC DAILY@1000 JUAN Glucagon () 1 mg IM .X1 PRN PRN Reason: Hypoglycemia Sodium Chloride () 250 mls @ 15 mls/hr IV .[id number] PRN PRN Reason: SALINE FLUSH Sodium Chloride () 1,000 mls @ 150 mls/hr IV .[id number] JUAN Last Admin: 07/19/19 02:50 Dose: 150 mls/hr Documented by: Morphine Sulfate () 4 mg IV Q3H PRN PRN PRN Reason: Severe pain (-07/19) Last Admin: 07/19/19 05:47 Dose: 4 mg Documented by: Morphine Sulfate () 2 mg IV Q3H PRN PRN PRN Reason: moderate pain Prochlorperazine Edisylate (Compazine Iv) 5 mg IV Q6H PRN PRN PRN Reason: NAUSEA/VOMITING Last Admin: 07/19/19 05:46 Dose: 5 mg Documented by: Promethazine HCl (Phenergan) 25 mg IV Q6H PRN PRN PRN Reason: NAUSEA/VOMITING Last Admin: 07/19/19 02:44 Dose: 25 mg Documented by: Sodium Chloride () 5 - 15 ml IV UD PRN PRN Reason: SALINE FLUSH Last Admin: 07/18/19 23:41 Dose: 10 ml Documented by: Medical Necessity - Tobacco Use Smoking Status: Current some day smoker Assessment/Plan All Active Problems (Last Reviewed 10/10/18 @ 02:33 by Alan Torres MD) Severe sepsis (Acute) Cellulitis, abdominal wall (Acute) Sinus tachycardia by electrocardiogram (Acute) Elevated BP without diagnosis of hypertension (Acute) Postoperative lower abdominal pain (Acute) Nausea vomiting and diarrhea (Acute) Hypokalemia due to excessive gastrointestinal loss of potassium (Acute) Intractable abdominal pain (Acute) Partial small bowel obstruction (Resolved) Vomiting (Resolved) Recurrent ventral hernia with incarceration (Resolved) 34 y/o admitted with a complaint of abdominal pain 1. Intestinal ileus * feels better today. Able to tolerate liquid diet, so advanced to regular diet today * continue hydration with IVF at 150cc/hr * general surgery on board * on IV morphine prn for pain; will add on oxycodone, since she can now have oral intake. * 2. Lactic acidosis: * lactic acid was 3.4 on admission, and trended down to 2.1 continue hydrating. * 3. Hypokalemia: resolved. Potassium is 3.9 today. DVT prophylaxis: lovenox Code Visit OBSV E&M: [id number] Subsequent observation care L2
[2019-07-19] MEDS: 0.9% NaCl Peripheral Flush Adult/Peds IV ×6 (09:17→22:36)
[2019-07-19] MEDS: Enoxaparin 40 MG/0.4 ML Syringe SC (09:18)
[2019-07-19 09:30] VITALS: BP 131/85; PULSE 87; RESP 14; TEMP 37.1; O2SAT 95
[2019-07-19 15:42] VITALS: BP 125/78; PULSE 86; RESP 14; TEMP 36.1; O2SAT 96
[2019-07-19] MEDS: HYDROcodone Bitartrate/Apap 5/325 Tablet PO (17:03)
[2019-07-19] MEDS: Loperamide 2 MG Capsule PO (17:04)
--- NOTE | 2019-07-19 17:41 | PCM.PN.SRG ---
Patient Problems: Active and Suspected Problems (Last Reviewed 10/10/18 @ 02:33 by Alan Torres MD) Postoperative lower abdominal pain (Acute) Nausea vomiting and diarrhea (Acute) Hypokalemia due to excessive gastrointestinal loss of potassium (Acute) Subjective: tolerating liquids, would like regular diet - Physical Exam General: Alert, Oriented x3, Cooperative Lungs: Clear to auscultation, Normal air movement Cardiovascular: Regular rate, No murmurs Abdomen: Bowel Sounds Present, Soft, Tender - diffusely and at incision, incision healing as expected Vital Signs Temp Pulse Resp BP Pulse Ox 97 F L 86 14 125/78 H 96 07/19/19 15:42 07/19/19 15:42 07/19/19 15:42 07/19/19 15:42 07/19/19 15:42 Oxygen Delivery Method Room Air Weight: 140.1 kg Body Mass Index (BMI) 51.4 Finger Stick Blood Glucose 109 Intake and Output for Last 24 Hours 07/17/19 07/18/19 07/19/19 23:59 23:59 23:59 Intake Total 4792.5 / 4792.5 Output Total 1000 / 1000 Balance 3792.5 / 3792.5 Microbiology Past 72 Hours 07/18/19 13:50 Gram Stain - Final Wound - Abdominal Wound Culture - Preliminary Staphylococcus aureus Laboratory Tests Past 24 Hrs 07/18/19 07/18/19 07/18/19 13:50 17:59 22:44 WBC RBC Hgb Hct MCV MCH MCHC RDW Std Deviation RDW Coeff of Juan Plt Count MPV Immature Gran % (Auto) Neut % (Auto) Lymph % (Auto) Centre % (Auto) Eos % (Auto) Baso % (Auto) Absolute Neuts (auto) Absolute Lymphs (auto) Nucleated RBC % Sodium Potassium Chloride Carbon Dioxide Anion Gap BUN Creatinine Estim Creat Clear Calc Est GFR (MDRD) Af Amer Est GFR (MDRD) Non-Af BUN/Creatinine Ratio Glucose Lactic Acid 2.0 2.1 H Calcium S.aureus Protein A PCR POSITIVE H MRSA (PCR) Negative 07/19/19 07/19/19 06:25 06:25 WBC 6.4 RBC 4.05 L Hgb 12.1 Hct 38.8 MCV 95.8 MCH 29.9 MCHC 31.2 L RDW Std Deviation 43.8 RDW Coeff of Juan 12.5 Plt Count 228 MPV 8.9 Immature Gran % (Auto) 0.800 Neut % (Auto) 56.0 Lymph % (Auto) 34.5 Centre % (Auto) 5.7 Eos % (Auto) 2.5 Baso % (Auto) 0.5 Absolute Neuts (auto) 3.6 Absolute Lymphs (auto) 2.22 Nucleated RBC % 0 Sodium 142 Potassium 3.9 Chloride 109 H Carbon Dioxide 25.0 Anion Gap 8 BUN 7 Creatinine 0.51 L Estim Creat Clear Calc 139.86 Est GFR (MDRD) Af Amer 177 Est GFR (MDRD) Non-Af 146 BUN/Creatinine Ratio 13.7 Glucose 85 Lactic Acid Calcium 8.3 L S.aureus Protein A PCR MRSA (PCR) Medical Necessity - Tobacco Use Smoking Status: Current some day smoker Assessment/Plan All Active Problems (Last Reviewed 10/10/18 @ 02:33 by Alan Torres MD) Severe sepsis (Acute) Cellulitis, abdominal wall (Acute) Sinus tachycardia by electrocardiogram (Acute) Elevated BP without diagnosis of hypertension (Acute) Postoperative lower abdominal pain (Acute) Nausea vomiting and diarrhea (Acute) Hypokalemia due to excessive gastrointestinal loss of potassium (Acute) Intractable abdominal pain (Acute) Partial small bowel obstruction (Resolved) Vomiting (Resolved) Recurrent ventral hernia with incarceration (Resolved) abdominal pain, irregular stools, abnormal appearing CT scan with some bowel distention. My review the CT scan as this is consistent with postsurgical changes consistent with her previous Blanca-en-Y procedure/duodenal switch procedure. The patient's wound appears to be healing appropriately. Would await cultures but would recommend restarting oral feeds starting with clear liquids and if patient otherwise doing well advance diet. once the patient's wound is healed, my plan is to refer her to evaluation to bariatric surgery for possible revision of her duodenal switch/bariatric procedure.
[2019-07-19 20:02] VITALS: BP 119/76; PULSE 79; RESP 18; TEMP 36.8; O2SAT 99
[2019-07-20] MEDS: HYDROcodone Bitartrate/Apap 5/325 Tablet PO ×2 (00:04→13:55)
[2019-07-20] MEDS: Morphine 4 MG/ML Syringe IV (01:49)
[2019-07-20] MEDS: proCHLORPERazine 10 MG/2 ML Vial 5 MG IV ×2 (01:50→08:26)
[2019-07-20] MEDS: 0.9% NaCl Peripheral Flush Adult/Peds IV ×2 (01:50→04:52)
[2019-07-20 01:58] VITALS: BP 138/84; PULSE 67; RESP 18; TEMP 36.8; O2SAT 98
[2019-07-20] MEDS: Morphine 2 MG/ML Syringe IV ×3 (04:51→11:34)
[2019-07-20] MEDS: proMETHazine 25 MG/ML Syringe IV ×2 (04:52→11:34)
[2019-07-20] MEDS: 0.9% Normal Saline 1,000 ML 150 ML IV (04:56)
[2019-07-20 06:48] LABS: Anion Gap 7 (5-15); BUN 10 mg/dL (7-18); BUN/Creat Ratio 17.6 RATIO (10-20); Calcium,Total 8.2 mg/dL (8.5-10.1); Chloride 109 mmol/L (98-107); Creatinine, Serum 0.57 mg/dL (0.55-1.02); EST Glomerular Filtration Rate 130 mL/min (>60); Est Glom Filt Rate - Afr Amer 157 mL/min (>60); Estimated Creatinine Clearance 125.14 ml/min; Glucose 91 mg/dL (74-106); Potassium 4.1 mmol/L (3.5-5.1); Sodium Level 142 mmol/L (136-145)
[2019-07-20 08:19] VITALS: BP 137/81; PULSE 91; RESP 18; TEMP 36.7; O2SAT 98
[2019-07-20] MEDS: Enoxaparin 40 MG/0.4 ML Syringe SC (08:26)
--- NOTE | 2019-07-20 10:31 | DCINST_ITS ---
- Discharge Diagnoses Current Active Problems: Current Active and Chronic Problems (Last Reviewed 10/10/18 @ 02:33 by Alan Torres MD) Postoperative lower abdominal pain (Acute) Nausea vomiting and diarrhea (Acute) Hypokalemia due to excessive gastrointestinal loss of potassium (Acute) You will use the following diet at home:: Regular Your food should be the consistency of: Regular Your liquids should be the consistency of: Regular/Thin Discharge Activity: Return to Normal Activity Weight Bearing Status: Weight bearing as tolerated Call your doctor if you observe: Fever of 101 or Higher, - - nausea, vomiting, increased abdominal pain Instructions: Abdominal Pain Allergies/Adverse Reactions: Allergies ketorolac tromethamine [From Toradol] Allergy (Verified 07/18/19 07:54) Shortness of breath ondansetron HCl [From Zofran] Allergy (Verified 07/18/19 07:54) Shortness of breath Medications to take at Discharge Acetaminophen [Tylenol Tablet] 650 mg PO Q6H PRN PRN #30 tab 07/20/19 The following prescriptions were given: Acetaminophen [Tylenol Tablet] 650 mg PO Q6H PRN PRN #30 tab PRN Reason: mild to moderarte pain Transmission Status: Pending to [facility] Primary Care Physician: Jose Barron MD [Primary Care Provider] - Please follow up with your Primary Care Physician in: 1-2 weeks Test Results: Test results from this visit will be discussed in further detail at your follow- up appointment, if applicable. Please Follow Up With: Eros Yadav MD When: one week Proposed Discharge Date: 07/20/19
--- NOTE | 2019-07-20 10:33 | PCM.DC.SUM ---
Discharge Date and Diagnosis - Problem List Patient Problems: Active and Suspected Problems (Last Reviewed 10/10/18 @ 02:33 by Alan Torres MD) Postoperative lower abdominal pain (Acute) Nausea vomiting and diarrhea (Acute) Hypokalemia due to excessive gastrointestinal loss of potassium (Acute) Date of Admission: 07/18/19 Date of Discharge: 07/20/19 - Primary Discharge Diagnosis Active and Suspected Problems (Last Reviewed 10/10/18 @ 02:33 by Alan Torres MD) Postoperative lower abdominal pain (Acute) Nausea vomiting and diarrhea (Acute) Hypokalemia due to excessive gastrointestinal loss of potassium (Acute) intestinal ileus - Secondary Discharge Diagnosis Chronic Problems (Last Reviewed 10/10/18 @ 02:33 by Alan Torres MD) Anxiety and depression (Chronic) Morbid obesity (Chronic) JAGJIT (obstructive sleep apnea) (Chronic) History of anxiety disorder (Chronic) GERD (gastroesophageal reflux disease) (Chronic) Hospital Course and Treatment Imaging Results: Diagnostic Data Abdomen/Pelvis CT 07/18/19 08:29 IMPRESSION: This patient's had a previous laparotomy and there is some focal dilatation of the aorta below the small intestine of uncertain etiology. A localized ileus versus partial mechanical small bowel obstruction or other diagnostic possibilities. Electronically Signed: Regis Quijano, at 10:51 EDT Tel , Service support , general surgery- Dr Yadav Operations: None, - Procedures: None Summary of Care Provided: The patient is a 34 year old F with past medical history as listed was admitted with complaint of abdominal pain 1 day duration. Pain is well-known to me from her previous admission about a month ago when she came in with similar complaints as well as discharge from a surgical site was managed for sepsis due to post surgical infection. Patient was seen a little over a month ago at [facility] ED for small bowel obstruction and was subsequently sent to [facility] where she had surgery done. She subsequently developed pain at the surgical site and on admission, CT of the pelvis showed postsurgical inflammatory changes within the transverse rectus sheath bilaterally on the right as well as in the fat of the lower abdominal anterior pelvic cavity but no well-defined abscess or collection. Subsequently she developed abdominal pain was thought to have a possible ileus versus small bowel obstruction, however imaging done ruled this out and it appeared that she had had a Blanca-en-Y surgery years ago for suspected bile reflux. Symptoms resolved and she was discharged and so she presented again today with a complaint of abdominal pain. She has had associated nausea but no vomiting and is having diarrhea and passing gas. She states that slips both obliques and her surgical scar but is mainly well-healed. Review of systems is otherwise negative. In the ED vitals were essentially stable. Chemistry was significant for potassium of 3.3 and lactic acid of 3.4. CBC showed no leukocytosis and was unremarkable. CT of the abdomen and pelvis showed focal dilatation of the aorta below the small intestine of uncertain etiology and a localized ileus versus partial small bowel mechanical obstruction or other diagnostic possibilities. She has been admitted to be managed for suspected intestinal ileus. General surgery was consulted from ED. She was started on clear liquids, and put on pain meds- IV morphine. Abdominal pain gradually improved and nausea and vomiting also improved and subsequently resolved. She was advanced to PO regular diet which she tolerated. She was discharged home on 07/20/19. Patient had requested for opiates for pain; however, check of the [place] showed red flags with numerous scripts for opiates obtained in the past few days. She was therefore not given any script by hospitalist for opiates,but was given a script for tylenol. She is to follow up with her PCP and general surgery; she is to get established with pain management in August; counselled to keep that appointment. Patient seen and examined prior to discharge. She had no active complaints. Review of systems was otherwise negative. Labs and vitals reviewed. Home medications reviewed and reconciled. o.e: Vital Signs Height 5 ft 5 in Weight: 308 lb 13.882 oz Weight in Pounds 308.9 lbs Pulse Ox 98 Temperature 98.0 F Pulse Rate 91 Respiratory Rate 18 Blood Pressure 137/81 Blood Pressure Position Sitting General: Alert, Oriented x3, Cooperative HEENT: Atraumatic, PERRLA, EOMI, Normocephalic Oral: Dry Mucosa Neck: Supple Lungs: Clear to auscultation, Normal air movement, No rhonchi, No wheeze Cardiovascular: Regular rate, Regular Rhythm, Normal S1, Normal S2, No murmurs Abdomen: Bowel Sounds Present, Soft, No Hepato-splenomegaly, - no tenderness, clean dressing over laparotomy scar. Extremities: No clubbing, No cyanosis, No edema, Capillary Refill Less than 3 Seconds Skin: No rashes, No breakdown Musculoskeletal: No Tenderness to Palpation of Joints or Extremities Lymphatic: No Cervical, Supraclavicular, or Inguinal Adenopathy Neurological: Cranial nerves II-XII grossly intact, Neuro grossly intact, Motor Exam 5/5 strength throughout Psych/Mental Status: Normal Affect, Appropriate, Alert and oriented to time, place, person, mood and affect Plan as above. Patient Problems: Active and Suspected Problems (Last Reviewed 10/10/18 @ 02:33 by Alan Torres MD) Postoperative lower abdominal pain (Acute) Nausea vomiting and diarrhea (Acute) Hypokalemia due to excessive gastrointestinal loss of potassium (Acute) - Physical Exam Vital Signs Temp Pulse Resp BP Pulse Ox 98.0 F 91 18 137/81 H 98 07/20/19 08:19 07/20/19 08:19 07/20/19 08:19 07/20/19 08:19 07/20/19 08:19 Oxygen Delivery Method Room Air Weight: 308 lb 13.882 oz Body Mass Index (BMI) 51.4 Finger Stick Blood Glucose 109 Intake and Output for Last 24 Hours 07/18/19 07/19/19 07/20/19 23:59 23:59 23:59 Intake Total 5562.5 / 5562.5 962.5 / 962.5 Output Total 1000 / 1000 Balance 4562.5 / 4562.5 962.5 / 962.5 Microbiology Past 72 Hours 07/18/19 13:50 Gram Stain - Final Wound - Abdominal Wound Culture - Preliminary Staphylococcus aureus Laboratory Tests Past 24 Hrs 07/20/19 06:10 Sodium 142 Potassium 4.1 Chloride 109 H Carbon Dioxide 26.0 Anion Gap 7 BUN 10 Creatinine 0.57 Estim Creat Clear Calc 125.14 Est GFR (MDRD) Af Amer 157 Est GFR (MDRD) Non-Af 130 BUN/Creatinine Ratio 17.6 Glucose 91 Calcium 8.2 L Discharge Diet: No Restrictions Discharge Activity: Return to Normal Activity Weight Bearing Status: Weight bearing as tolerated Call your doctor if you observe: Fever of 101 or Higher, - - nausea, vomiting, increased abdominal pain Home Medications: Medications to take at Discharge Acetaminophen [Tylenol Tablet] 650 mg PO Q6H PRN PRN #30 tab 07/20/19 Following Prescrptions Were Given to Patient: Acetaminophen [Tylenol Tablet] 650 mg PO Q6H PRN PRN #30 tab PRN Reason: mild to moderarte pain Transmission Status: Received by [facility] Primary Care Physician: Jose Barron MD [Primary Care Provider] - Please follow up with your Primary Care Physician in: 1-2 weeks Please Follow Up With: Eros Yadav MD When: one week Patient Instructions: Abdominal Pain Disposition: Home Minutes spent on discharge:: 35 Patient Condition:: Stable Medical Necessity - Tobacco Use Smoking Status: Current some day smoker Meaningful Use Info Meaningful Use Diagnoses (Choose all that apply): None applicable Code Visit Inpatient E&M: 53199 Disch Hosp
--- NOTE | 2019-07-20 10:40 | CASEMGMT ---
MARIE CM Readmission Note Previous Admission: 06/19-06/23/19 Diagnosis: Cellulitis, Post op infection DC Disposition: Home Current Admission Presentation: Nausea vomiting. Demographics, PCP and Pharmacy verified. Pt is tearful, states she will not be receiving pain medication on dc and is upset that her pain will not be managed @ home. Pt is to see Pain management physician in [place] in August. [facility] ([facility]). Pt is not on file yet. Pt states Dr. Yadav is sending a referral to them. Reviewed with pt to call on dc to be sure referral was sent. Complete new pt paperwork, then can request Dr. Yadav's office assist with attempting to get earlier appt. Pt will f/u. Nurse notified pt is requesting pain medication. -Pt states she is compliant with f/u, but does have difficulty with gas money for car. Discussed arranging transportation with [facility]. She is aware of this option but has not made appts with enough advance notice to utilize often. PCP: Dr. Barron Specialists: Dr. Yadav Preferred Pharmacy: [facility] Insurance: [facility] Community Plan Prescription Benefit: yes DC PLAN: Home Mireille SALAZAR BSN CM
[2019-07-20 14:02] VITALS: BP 142/83; PULSE 96; RESP 18; TEMP 36.7; O2SAT 96
--- NOTE | 2019-07-20 17:59 | PCM.PN.SRG ---
Subjective: still pain in the abdomen area, tolerating a diet - Physical Exam General: Alert, Oriented x3, Cooperative Lungs: Clear to auscultation, Normal air movement Cardiovascular: Regular rate, No murmurs Abdomen: Bowel Sounds Present, Soft, Non Tender Vital Signs Temp Pulse Resp BP Pulse Ox 98.1 F 96 18 142/83 H 96 07/20/19 14:02 07/20/19 14:02 07/20/19 14:02 07/20/19 14:02 07/20/19 14:02 Oxygen Delivery Method Room Air Weight: 140.1 kg Body Mass Index (BMI) 51.4 Finger Stick Blood Glucose 109 Intake and Output for Last 24 Hours 07/18/19 07/19/19 07/20/19 23:59 23:59 23:59 Intake Total 5562.5 / 5562.5 2412.5 / 2412.5 Output Total 1000 / 1000 Balance 4562.5 / 4562.5 2412.5 / 2412.5 Microbiology Past 72 Hours 07/18/19 13:50 Gram Stain - Final Wound - Abdominal Wound Culture - Preliminary Staphylococcus aureus Coag Negative Staph Gram positive magalis Laboratory Tests Past 24 Hrs 07/20/19 06:10 Sodium 142 Potassium 4.1 Chloride 109 H Carbon Dioxide 26.0 Anion Gap 7 BUN 10 Creatinine 0.57 Estim Creat Clear Calc 125.14 Est GFR (MDRD) Af Amer 157 Est GFR (MDRD) Non-Af 130 BUN/Creatinine Ratio 17.6 Glucose 91 Calcium 8.2 L Medical Necessity - Tobacco Use Smoking Status: Current some day smoker Assessment/Plan All Active Problems (Last Reviewed 10/10/18 @ 02:33 by Alan Torres MD) Severe sepsis (Acute) Cellulitis, abdominal wall (Acute) Sinus tachycardia by electrocardiogram (Acute) Elevated BP without diagnosis of hypertension (Acute) Postoperative lower abdominal pain (Acute) Nausea vomiting and diarrhea (Acute) Hypokalemia due to excessive gastrointestinal loss of potassium (Acute) Intractable abdominal pain (Acute) Partial small bowel obstruction (Resolved) Vomiting (Resolved) Recurrent ventral hernia with incarceration (Resolved) abdominal pain, irregular stools, abnormal appearing CT scan with some bowel distention. My review the CT scan as this is consistent with postsurgical changes consistent with her previous Blanca-en-Y procedure/duodenal switch procedure. The patient's wound appears to be healing appropriately. Would await cultures but would recommend restarting oral feeds starting with clear liquids and if patient otherwise doing well advance diet. once the patient's wound is healed, my plan is to refer her to evaluation to bariatric surgery for possible revision of her duodenal switch/bariatric procedure.
--- NOTE | 2019-07-23 16:00 | CASEMGMT ---
Case Management DC F/u Call: DC Date: 07/20/19 DC Diagnosis: Postoperative lower abdominal pain (Acute), Nausea vomiting and diarrhea (Acute), Hypokalemia due to excessive gastrointestinal loss of potassium (Acute), intestinal ileus DC Disposition: Home Lace/Strata: 20/01 Called patient cell phone listed on demographics. No answer and Voice Msg does not identify correct patient, Therefore no VM left. Candis Schwartz RNCM
== END 2019-07-20 14:05 | disposition home or self-care (01) | DRG 251 ==
LOC: ED 12:39 → MS3 12:45
PROVIDERS: Admitting Provider Student in an Organized Health Care Education/Training Program; Emergency Provider Emergency Medicine; Family Provider Family Medicine; PCP Family Medicine; Referring Provider Student in an Organized Health Care Education/Training Program; Visit Provider Student in an Organized Health Care Education/Training Program
DX: G89.18 Other acute postprocedural pain (principal); R10.30 Lower abdominal pain, unspecified; K56.7 Ileus, unspecified; E87.6 Hypokalemia; E66.01 Morbid (severe) obesity due to excess calories; Z68.43 Body mass index [BMI] 50.0-59.9, adult; G47.33 Obstructive sleep apnea (adult) (pediatric); K21.9 Gastro-esophageal reflux disease without esophagitis; E87.2 Acidosis; Z98.84 Bariatric surgery status; F17.200 Nicotine dependence, unspecified, uncomplicated
CPT/HCPCS: 36415; 74177; 80048; 80053; 81001; 83605; 85025; 87070; 87075; 87077; 87186; 87205; 87640; 96361; 96372; 96374; 96375; 96376; 97802; 99218; 99284; 99406; J7030; Q9967; A4216; G0378

== ENCOUNTER 2019-07-23 21:23 | Emergency (ER) | payer MEDICAID, SELFPAY ==
[2019-07-18 13:20] VITALS: BMI 51.4
[2019-07-23 21:23] VITALS: BP 156/82; PULSE 104; RESP 18; TEMP 36.8; O2SAT 99; BMI 51.6
--- NOTE | 2019-07-23 22:25 | RAD_ITS ---
STUDY: X-RAY - ACUTE ABDOMINAL SERIES REASON FOR EXAM: Female, 34 years old. Nausea. Abdominal pain TECHNIQUE: Single view of the chest. Supine, and erect view(s) of the abdomen were obtained. COMPARISON: June 23, 2019 FINDINGS: The lungs are clear. Elevation of the right hemidiaphragm. Normal size heart. Normal mediastinum and denisse. Normal visualized pulmonary arteries. Normal visualized aortic arch and descending thoracic aorta. There is a normal bowel gas pattern. There is surgical clips in the right abdomen. There are tubal ligation clips in the pelvis. Normal visualized osseous structures. RAD/Acute Abdomen Inc Chest IMPRESSION: No obstruction. Electronically Signed: Mehrdad Sher MD at 23:10 EDT , Service support ,
[2019-07-23] MEDS: proMETHazine 25 MG/ML Syringe 6.25 MG IV ×2 (22:30→23:25)
[2019-07-23] MEDS: 0.9% Normal Saline 1,000 ML 1000 ML IV (22:30)
[2019-07-23] MEDS: Morphine 4 MG/ML Syringe IV (22:31)
[2019-07-23 22:44] LABS: Absolute Lymphocyte Count 2.76 X10^3/uL (0.83-4.51); Absolute Neutrophil Count 7.7 X10^3/uL (2.0-7.7); Basophil# 0.05 X10^3/uL; Basophil% 0.4 % (0-1); Eosinophils% 2.6 % (0-5); Hematocrit 41.7 % (37-47); Hemoglobin 13.7 g/dL (12.0-15.0); Lymphocyte # 2.76 X10^3/ul (4.0); Lymphocyte % 23.7 % (19-41); Mean Corp Hgb Conc 32.9 g/dL (32-36); Mean Corpuscular Hgb 30.3 pg (27.0-32.0); Mean Corpuscular Volume 92.3 fL (81-99); Monocyte# 0.74 X10^3/uL; Monocyte% 6.3 % (0-10); NRBC Flagged by Analyzer 0 % (0-5); Neutrophil # 7.74 X10^3/uL (2.7-7.7); Neutrophil % 66.3 % (47-70); Platelet Count 318 K/mm3 (150-450); RBC Distribution Width CV 12.3 % (11.6-14.6); RBC Distribution Width SD 41.3 fl (35.1-43.9); Red Blood Count 4.52 M/mm3 (4.2-5.4); White Blood Count 11.7 K/mm3 (4.4-11.0)
[2019-07-23 22:57] LABS: ALB/GLOB Ratio 1.1 RATIO (0.9-2.4); AST(SGOT) 16 U/L (15-37); Alanine Aminotransfer ALT/SGPT 33 U/L (13-56); Albumin, Serum 3.7 g/dL (3.2-5.0); Alkaline Phosphatase 60 U/L (45-117); Anion Gap 11 (5-15); BUN 10 mg/dL (7-18); BUN/Creat Ratio 16.8 RATIO (10-20); Calcium,Total 8.8 mg/dL (8.5-10.1); Chloride 107 mmol/L (98-107); EST Glomerular Filtration Rate 122 mL/min (>60); Est Glom Filt Rate - Afr Amer 148 mL/min (>60); Estimated Creatinine Clearance 118.88 ml/min; Globulin 3.5 g/dL (2.2-4.2); Glucose 143 mg/dL (74-106); Lipase 114 U/L (73-393); Potassium 3.8 mmol/L (3.5-5.1); Protein, Total 7.2 g/dL (6.4-8.2); Sodium Level 138 mmol/L (136-145)
--- NOTE | 2019-07-23 23:15 | ED.RN ---
DR SHORT NOTIFIED PT VOMITED
--- NOTE | 2019-07-23 23:19 | ED.DCSUM_ITS ---
- ER Visit Summary Date of Service: 07/23/19 Chief Complaint: Abdominal pain, nausea, vomiting History of Present Illness: The patient is a 34 F who presents with abdominal pain, nausea, vomiting, and diarrhea that became worse today. Patient states her pain is over her lower abdomen and worse on the left. Patient admits to some nausea and vomiting. Patient denies any hematemesis or coffee-ground emesis. Patient admits to some diarrhea. Patient states she had 2 bowel movements today to have dark blood in it. Patient denies any dysuria or hematuria. Patient states she called her surgeon who told her to come to the emergency department for further evaluation. Physical Examination: Vital signs are stable. Patient is afebrile. Patient is in no acute distress. Oral mucosa is pink and moist. Neck is supple. Trachea is midline. There is no JVD noted. Heart was regular rate and rhythm. Lungs are clear and equal bilaterally. Abdomen is soft. Bowel sounds are normal. There is lower abdominal tenderness. There is no rebound or guarding noted. The incisions in her lower abdomen appeared to be healing well. There is no erythema or drainage noted. Cranial nerves II through XII are intact. There are no focal motor or sensory deficits noted. Rectal exam showed good sphincter tone. There is no stool noted. Hemoccult was negative. Test Results: CBC shows a slight leukocytosis of 11.7. Metabolic profile was within normal limits. Acute abdominal x-rays were obtained. There is no evidence of bowel obstruction. Emergency Department Course and Treatment: Patient was given a dose of morphine and Phenergan here in the emergency department. Patient had another episode of vomiting after this. Patient was given a repeat dose of Phenergan. Patient was also given a dose of Dilaudid. Patient was resting comfortably on reevaluation. Patient had no further episodes of vomiting. Case was discussed with Dr. Yadav. He will follow-up with the patient in the office. Patient understood and was agreeable with the plan. All questions were answered. Disposition: Discharge home Impression: 1. Lower abdominal pain This note was generated with [employer] software. It may contain incorrect words, spelling, and punctuation that were not noted in review of the chart prior to signing ED Disposition - Plan for ED Patient: Disposition: Home or Assisted Living Diagnosis: Abdominal pain Instructions: ABDOMINAL PAIN, Unknown Cause, (Female) Referrals: Jose Barron MD [Primary Care Provider] - Eros Yadav MD [STAFF PHYSICIAN] - 3-5 Days
--- NOTE | 2019-07-23 23:27 | ED.RN ---
DR SHORT NOTIFIED PT C/O INCREASED PAIN FROM VOMITING
[2019-07-23] MEDS: HYDROmorphone 0.5 MG/0.5 ML SYRINGE IV (23:44)
[2019-07-24 00:25] VITALS: BP 114/65; PULSE 83; RESP 17; O2SAT 98
== END 2019-07-24 00:26 | disposition home or self-care (01) ==
PROVIDERS: Emergency Provider Emergency Medicine; Family Provider Family Medicine; PCP Family Medicine
DX: R10.32 Left lower quadrant pain (principal); R10.31 Right lower quadrant pain; R11.2 Nausea with vomiting, unspecified; Z90.49 Acquired absence of other specified parts of digestive tract
CPT/HCPCS: 74022; 80053; 82274; 83690; 85025; 96361; 96374; 96375; 96376; 99285; J7030; A4216

== ENCOUNTER 2019-08-12 17:07 | Emergency (ER) | payer MEDICAID, SELFPAY ==
[2019-08-12 17:09] VITALS: BP 165/110; PULSE 119; RESP 20; TEMP 37.1; O2SAT 98; BMI 51.4
--- NOTE | 2019-08-12 17:22 | CT_ITS ---
STUDY: CT ABDOMEN AND PELVIS WITH CONTRAST REASON FOR EXAM: Female, 34 years old. Right-sided pain RADIATION DOSAGE (If Supplied By Facility): CTDIvol = ( 23.73 ) mGy, DLP = ( 1395.00 ) mGycm TECHNIQUE: Transaxial images were obtained from the dome of the diaphragm to the symphysis pubis with oral contrast. 100ML ml of Gastrografin and amp; 100mL Isovue-300 contrast was administered. Sagittal and coronal images were reconstructed. Individualized dose optimization techniques were used for this CT. COMPARISON: None. FINDINGS: The visualized lung bases are clear. The visualized portions of the heart and pericardium are within normal limits. There are no calcified gallstones present. The liver is enlarged. There is diffuse fatty infiltration of the liver. The spleen is enlarged, measuring 14.2 cm in craniocaudal dimension. The pancreas is within normal limits. The adrenal glands are within normal limits. There are no renal or ureteral stones. There is no hydronephrosis. There are bilateral renal cysts. Normal visualized stomach. There are stable postsurgical changes from prior small bowel resection. There is no bowel obstruction or inflammation. The appendix is not visualized, but there are no findings to suggest acute appendicitis. The aorta is normal in caliber. There is no abdominal or pelvic free air, free fluid, fluid collection or lymphadenopathy. There are no destructive osseous lesions. CT/Abdomen/Pelvis WITH Contrast IMPRESSION: No bowel obstruction or inflammation. Stable postsurgical changes from prior small bowel resection. Hepatosplenomegaly with fatty infiltration of the liver. Electronically Signed: Jesus Gardiner, at 20:39 EST Tel , Service support ,
--- NOTE | 2019-08-12 17:23 | ED.VIS.GEN ---
History of Present Illness Chief Complaint: Abd Pain Informant: Patient Onset: Days - 2 days Current Severity: Moderate Maximum Severity: Moderate Narrative: Patient presents with 2-day history of right-sided abdominal pain. She had a large abdominal surgery over Labor Day weekend secondary to partial small bowel obstruction and ventral hernia. Wound became infected and she was hospitalized again. Patient was admitted recently with an ileus. Patient states yesterday she started getting a burning sensation just to the right inferior aspect of her umbilicus that radiates towards the right lower quadrant. Today the pain is more sharp in nature. She does state that she has recently started working 2 jobs. 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 Today she had to leave work secondary to pain. She has had nausea and vomiting today. Past Medical History - Allergies and Home Meds Allergies/Adverse Reactions: Allergies ketorolac tromethamine [From Toradol] Allergy (Verified 08/12/19 17:09) Shortness of breath ondansetron HCl [From Zofran] Allergy (Verified 08/12/19 17:09) Shortness of breath Primary Care Physician: Jose Barron MD [Primary Care Provider] - Prior records reviewed: Yes Past Medical History: - - Reviewed Surgical History: appendectomy, cholecystectomy, herniorrhaphy - x6. Patient reported that a mass was removed in her left lower quadrant. She reported that after she had an infection at the site where the mass was removed for which reason she had another surgery and then a wound VAC was placed., - - 3- sections, ventral and incisional hernia repairs with mesh x 6, cholecystectomy, appendectomy, tonsillectomy, recent exploratory laparotomy with lysis of adhesions and possible mesh removal. Smoking Status: Never smoker - Family History Maternal Family History: Reports: Diabetes, Heart Disease, Hypertension, Stroke Paternal Family History: Reports: Cancer - Colon, Diabetes, Heart Disease, Hypertension Review of Systems General: Denies: Chills, Fever - Temperature of 99.6 at home Eyes: Denies: Visual changes - bilaterally ENT: Denies: Bilateral ear pain Cardiovascular: Denies: Chest pain, Palpitations Respiratory: Denies: Dyspnea, Cough Gastrointestinal: Reports: Abdominal pain, Nausea, Vomiting Genitourinary: Denies: Dysuria Musculoskeletal: Denies: Extremity Pain Skin: Denies: Rash Neurological: Denies: Headache Hematologic: Denies: Easy bruising Allergy: Denies: Uticaria Physical Exam Vital Signs/Narrative: Vital Signs Temp Pulse Resp BP Pulse Ox 08/12/19 17:09 98.7 F 119 H 20 H 165/110 H 98 Inital Vital Signs reviewed: Yes General: Well nourished, Well developed Head: Normocephalic ENT: Moist mucous membranes Neck: Supple Cardiovascular: Regular rhythm, Tachycardia Respiratory: No distress, CTA bilaterally Abdomen: Soft, Tender - Tenderness in the medial acid of the right lower quadrant. No couple masses noted., Hypoactive bowel sounds. Negative for: Guarding Extremities: Nontender Skin: Normal color, No rash Neurological: Alert, Oriented x3 Psychological: Normal affect Diagnostic/Tx/Re-eval Impressions Abdomen/Pelvis CT 08/12/19 17:22 IMPRESSION: No bowel obstruction or inflammation. Stable postsurgical changes from prior small bowel resection. Hepatosplenomegaly with fatty infiltration of the liver. Electronically Signed: Jesus Abdifatah, at 20:39 EST Tel , Service support , 08/12/19 17:22 Abdomen/Pelvis WITH Contrast [CT] Stat Laboratory Results 08/12/19 08/12/19 08/12/19 17:39 17:39 17:39 WBC 9.3 RBC 4.39 Hgb 13.2 Hct 41.5 MCV 94.5 MCH 30.1 MCHC 31.8 L RDW Std Deviation 42.0 RDW Coeff of Juan 12.0 Plt Count 243 MPV 9.1 Immature Gran % (Auto) 0.700 Neut % (Auto) 69.6 Lymph % (Auto) 22.8 [place] % (Auto) 4.5 Eos % (Auto) 2.0 Baso % (Auto) 0.4 Absolute Neuts (auto) 6.5 Absolute Lymphs (auto) 2.13 Nucleated RBC % 0 Sodium 140 Potassium 3.5 Chloride 107 Carbon Dioxide 24.0 Anion Gap 9 BUN 7 Creatinine 0.61 Estim Creat Clear Calc 116.93 Est GFR (MDRD) Af Amer 144 Est GFR (MDRD) Non-Af 119 BUN/Creatinine Ratio 11.5 Glucose 158 H Calcium 8.7 Serum , Qual NEGATIVE - Medical Decision Making Patient's blood work is reviewed with her. CT scan does not show any evidence of obstruction or ileus. Patient states she did recently start this second job where she is on her feet more. I recommended she wear her abdominal binder to help prevent extra stress along her previous surgical site while she is up and around. She will be given a prescription for Percocet and Phenergan. She will be written off work tomorrow. She is to follow-up with Dr. Yadav if not improving. ED Disposition - Plan for ED Patient: Disposition: Home or Assisted Living Diagnosis: Abdominal pain Instructions: ABDOMINAL PAIN, Unknown Cause, (Female) Prescriptions: Oxycodone HCl/Acetaminophen [Percocet 5/325] 1 tablet PO Q6H PRN PRN 3 Days #12 tablet PRN Reason: Pain proMETHazine tablet [Phenergan] 25 mg PO Q6H PRN PRN #10 tablet PRN Reason: Nausea Referrals: Jose Barron MD [Primary Care Provider] - Eros Yadav MD [STAFF PHYSICIAN] - As Needed
[2019-08-12] MEDS: 0.9% Normal Saline 1,000 ML 150 ML IV (17:39)
[2019-08-12] MEDS: proMETHazine 25 MG/ML Syringe 12.5 MG IV ×3 (17:40→21:02)
[2019-08-12] MEDS: HYDROmorphone 1 MG/ML Syringe 0.5 MG IV (17:40)
[2019-08-12 17:50] LABS: Absolute Lymphocyte Count 2.13 X10^3/uL (0.83-4.51); Absolute Neutrophil Count 6.5 X10^3/uL (2.0-7.7); Basophil# 0.04 X10^3/uL; Basophil% 0.4 % (0-1); Eosinophil# 0.19 X10^3/uL; Hematocrit 41.5 % (37-47); Hemoglobin 13.2 g/dL (12.0-15.0); Lymphocyte # 2.13 X10^3/ul (4.0); Lymphocyte % 22.8 % (19-41); Mean Corp Hgb Conc 31.8 g/dL (32-36); Mean Corpuscular Hgb 30.1 pg (27.0-32.0); Mean Corpuscular Volume 94.5 fL (81-99); Mean Platelet Vol. 9.1 fl (6.2-12.0); Monocyte# 0.42 X10^3/uL; Monocyte% 4.5 % (0-10); NRBC Flagged by Analyzer 0 % (0-5); Neutrophil # 6.49 X10^3/uL (2.7-7.7); Neutrophil % 69.6 % (47-70); Platelet Count 243 K/mm3 (150-450); Red Blood Count 4.39 M/mm3 (4.2-5.4); White Blood Count 9.3 K/mm3 (4.4-11.0)
[2019-08-12 18:03] LABS: Anion Gap 9 (5-15); BUN 7 mg/dL (7-18); BUN/Creat Ratio 11.5 RATIO (10-20); Calcium,Total 8.7 mg/dL (8.5-10.1); Chloride 107 mmol/L (98-107); Creatinine, Serum 0.61 mg/dL (0.55-1.02); EST Glomerular Filtration Rate 119 mL/min (>60); Est Glom Filt Rate - Afr Amer 144 mL/min (>60); Estimated Creatinine Clearance 116.93 ml/min; Glucose 158 mg/dL (74-106); Potassium 3.5 mmol/L (3.5-5.1); Sodium Level 140 mmol/L (136-145)
[2019-08-12 18:23] LABS: Internal QC Validated? YES +Cl - CLEAR BKGD; Pregnancy, Serum, hCG Quali. NEGATIVE Negative
[2019-08-12] MEDS: HYDROmorphone 0.5 MG/0.5 ML SYRINGE IV (19:11)
[2019-08-12 19:38] VITALS: RESP 16
[2019-08-12 21:23] VITALS: BP 112/75; PULSE 78; RESP 18; O2SAT 100
== END 2019-08-12 21:23 | disposition home or self-care (01) ==
PROVIDERS: Emergency Provider Emergency Medicine; Family Provider Family Medicine; PCP Family Medicine
DX: R10.9 Unspecified abdominal pain (principal); K76.0 Fatty (change of) liver, not elsewhere classified; Z82.49 Family history of ischemic heart disease and other diseases of the circulatory system; Z88.8 Allergy status to other drugs, medicaments and biological substances; Z90.49 Acquired absence of other specified parts of digestive tract
CPT/HCPCS: 74177; 80048; 84703; 85025; 96361; 96374; 96375; 96376; 99284; J7030; Q9967; A4216

== ENCOUNTER 2019-09-03 16:04 | Emergency (ER) | payer MEDICAID, SELFPAY ==
[2019-09-03 16:05] VITALS: BP 166/90; PULSE 99; RESP 20; TEMP 36.8; O2SAT 98; BMI 51.0
--- NOTE | 2019-09-03 16:09 | EKG12_ITS ---
Test Reason : SYNCOPE Blood Pressure : / mmHG Vent. Rate : 096 BPM Atrial Rate : 096 BPM P-R Int : 148 ms QRS Dur : 086 ms QT Int : 356 ms P-R-T Axes : 060 069 019 degrees QTc Int : 449 ms Normal sinus rhythm Normal ECG Confirmed by PATRICK DODD, JASKARAN ([id number]), newspaper managing editor GABRIELA JADE ([id number]) on 09/05/2019 11:22:10 AM Referred By: JADON/ELIJAH Confirmed By:JASKARAN NGUYEN MD
--- NOTE | 2019-09-03 17:07 | CT_ITS ---
STUDY: CT ABDOMEN AND PELVIS WITH CONTRAST REASON FOR EXAM: Female, 34 years old. Pain. RADIATION DOSAGE (If Supplied By Facility): CTDIvol = ( 20.40 ) mGy, DLP = ( 1364.47 ) mGycm TECHNIQUE: Transaxial images were obtained from the dome of the diaphragm to the symphysis pubis with oral contrast. IV Isovue-300 100ML was administered. Sagittal and coronal images were reconstructed. Individualized dose optimization techniques were used for this CT. COMPARISON: August 12, 2019 FINDINGS: The visualized lung bases are unremarkable. The visualized portions of the heart are within normal limits. There is hepatomegaly with diffuse hepatic enlargement. There are surgical clips in the gallbladder fossa consistent with a prior cholecystectomy. There is mild splenomegaly. Normal pancreas. Normal bilateral adrenal glands. There is 1.0 cm cyst of the right kidney. Normal left kidney. Normal visualized stomach. Postoperative changes of small intestine. Normal colon. The appendix is visualized and appears normal. Normal abdominal aorta. Normal inferior vena cava. Normal retroperitoneum. Normal urinary bladder. Normal visualized uterus. There are tubal ligation clips.. There is no free fluid in the abdomen or pelvis. There is postoperative change of the abdominal wall. Normal osseous structures. CT/Abdomen/Pelvis WITH Contrast IMPRESSION: Hepatosplenomegaly. No dominant mass or obstruction. Postoperative changes. Electronically Signed: Mehrdad Sher MD at 19:25 EST , Service support ,
[2019-09-03 17:40] LABS: Absolute Lymphocyte Count 2.46 X10^3/uL (0.83-4.51); Absolute Neutrophil Count 6.2 X10^3/uL (2.0-7.7); Basophil# 0.04 X10^3/uL; Basophil% 0.4 % (0-1); Eosinophil# 0.18 X10^3/uL; Eosinophils% 1.9 % (0-5); Hematocrit 42.2 % (37-47); Hemoglobin 13.8 g/dL (12.0-15.0); Lymphocyte # 2.46 X10^3/ul (4.0); Lymphocyte % 25.7 % (19-41); Mean Corp Hgb Conc 32.7 g/dL (32-36); Mean Corpuscular Hgb 29.7 pg (27.0-32.0); Mean Corpuscular Volume 90.9 fL (81-99); Mean Platelet Vol. 8.9 fl (6.2-12.0); Monocyte# 0.66 X10^3/uL; Monocyte% 6.9 % (0-10); NRBC Flagged by Analyzer 0 % (0-5); Neutrophil # 6.19 X10^3/uL (2.7-7.7); Neutrophil % 64.6 % (47-70); Platelet Count 296 K/mm3 (150-450); RBC Distribution Width SD 39.7 fl (35.1-43.9); Red Blood Count 4.64 M/mm3 (4.2-5.4); White Blood Count 9.6 K/mm3 (4.4-11.0)
[2019-09-03 17:48] LABS: Internal QC Validated? YES +Cl - CLEAR BKGD; Pregnancy, Serum, hCG Quali. NEGATIVE Negative
[2019-09-03 17:52] LABS: Anion Gap 7 (5-15); BUN 11 mg/dL (7-18); BUN/Creat Ratio 16.8 RATIO (10-20); Calcium,Total 9.2 mg/dL (8.5-10.1); Chloride 105 mmol/L (98-107); Creatinine, Serum 0.65 mg/dL (0.55-1.02); EST Glomerular Filtration Rate 110 mL/min (>60); Est Glom Filt Rate - Afr Amer 133 mL/min (>60); Estimated Creatinine Clearance 109.74 ml/min; Glucose 95 mg/dL (74-106); Potassium 3.8 mmol/L (3.5-5.1); Sodium Level 137 mmol/L (136-145)
[2019-09-03 18:03] LABS: Lactic Acid 1.6 mmol/L (0.4-2.0)
[2019-09-03] MEDS: proMETHazine 25 MG/ML Syringe 6.25 MG IV (18:18)
[2019-09-03] MEDS: Morphine 4 MG/ML Syringe IV (18:18)
[2019-09-03] MEDS: 0.9% Normal Saline 1,000 ML 125 ML IV (18:19)
[2019-09-03 19:15] LABS: Mucous, Urine 0 SEEN /hpf (<or=2+); Red Blood Cells-Urine 0 SEEN /hpf (0-5)
[2019-09-03 19:20] LABS: Color, Urine Yellow (Yellow); Glucose, Dipstick Normal (Normal); Ketone-Dipstick Negative (Negative); Leukocyte Esterase-Dipstick Negative /ul (Negative); Nitrite-Dipstick Negative (Negative); Occult Blood-Urine Negative /ul (Negative); Protein-Dipstick 15 mg/dl (Negative); Specific Gravity, Urine 1.015 (1.002-1.030); Urine Bilirubin Dipstick Negative (Negative); Urine Clarity Sl. Cloudy (Clear); Urine Urobilinogen Normal (Normal)
[2019-09-03 19:31] LABS: Bacteria 2+ /hpf (None Seen); Squamous Epithelial Cells - UA 5-10 SEEN /hpf (5-10); White Blood Cells 0-5 SEEN /hpf (0-5)
--- NOTE | 2019-09-03 19:48 | ED.DCSUM_ITS ---
- ER Visit Summary Date of Service: 09/03/19 Chief Complaint: [Abdominal pain] History of Present Illness: The patient is a 34 F [presents to the emergency department complaint of abdominal pain that started around 11:30 AM. Patient states the pain came on gradually but then became more severe. Patient aspen payton rates it as a 7 out of 10. She describes it is lower abdomen. She is had nausea and vomiting x2 with it. 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 Patient was out for about 20 seconds. Patient I will continue to complain of severe pain in her abdomen. Patient has significant history of multiple abdominal surgeries including appendectomy, cholecystectomy, small bowel obstruction related to adhesions and partial removal of small bowel. Patient has had 6 hernia repairs. Patient had C-sections. Patient is concerned because this feels similar to when she had a bowel obstruction.] Physical Examination: [HEENT-PERRLA, EOMI. Cranial nerves II through XII grossly intact. TMs clear. Mucous membranes moist. No adenopathy. Cardiovascular-regular rate and rhythm without murmur or ectopy Lungs-clear to auscultation, chest wall stable without crepitus or subcu emphysema Abdomen-normoactive bowel sounds, soft. Patient has tenderness diffusely however mostly over right lower quadrant suprapubic region. There is no armando ound, rigidity, or perineal signs. Extremities-intact ?4, normal range of motion, normal pulses, atraumatic] Test Results: [CBC with differential obtained showed a white count of 9.6, hemoglobin 13.8, hematocrit 42, platelets 296. Chemistries unremarkable. Urinalysis was normal. hCG was negative. Lactate was normal at 1.6. CT scan of the abdomen pelvis with IV and p.o. contrast showed essentially nothing acute only postsurgical changes.] Emergency Department Course and Treatment: [She was given normal saline and was medicated with Dilaudid and Phenergan.] Treatment Plan: [Patient to follow-up with her surgeon Dr. Eros Yadav within the next 3 to 5 days. Patient advised to return if worsening pain, vomiting, fevers, or conditions worsen anyway.] Disposition: [Discharged home in stable condition.] Impression: [Abdominal pain-acute on chronic] This note was generated with [employer] dictation software. It may contain incorrect words, spelling, and punctuation that were not noted in review of the chart prior to signing ED Disposition - Plan for ED Patient: Referrals: Jose Barron MD [Primary Care Provider] -
--- NOTE | 2019-09-03 19:52 | ED.DEP ---
ED Disposition - Plan for ED Patient: Instructions: ABDOMINAL PAIN, Unknown Cause, (Female) Referrals: Jose Barron MD [Primary Care Provider] - Eros Yadav MD [STAFF PHYSICIAN] - 3-5 Days
[2019-09-03 20:15] VITALS: BP 125/72; PULSE 98; RESP 16; O2SAT 97
== END 2019-09-03 20:16 | disposition home or self-care (01) ==
LOC: ED 17:20
PROVIDERS: Emergency Provider Emergency Medicine; Family Provider Family Medicine; PCP Family Medicine
DX: R10.9 Unspecified abdominal pain (principal); G89.29 Other chronic pain; R11.2 Nausea with vomiting, unspecified; Z90.49 Acquired absence of other specified parts of digestive tract
CPT/HCPCS: 74177; 80048; 81001; 83605; 84703; 85025; 93005; 96361; 96374; 96375; 99284; J7030; Q9967; A4216

== ENCOUNTER 2019-10-01 20:58 | Emergency (ER) | payer MEDICAID, SELFPAY ==
[2019-10-01 21:03] VITALS: BP 167/103; PULSE 99; RESP 20; TEMP 36.9; O2SAT 97; BMI 51.8
--- NOTE | 2019-10-01 21:13 | CT_ITS ---
STUDY: CT ABDOMEN AND PELVIS WITHOUT CONTRAST REASON FOR EXAM: Female, 34 years old. RT MID ABDOMEN PAIN TONIGHT -- HX:GERD,KIDNEY STONES,SBO,RECURRENT VENTRAL HERNIA -- SURGERY:APPENDECTOMY,CHOLECYSTECTOMY, X 3,TUBAL,BOWEL RESECTION RADIATION DOSAGE (If Supplied By Facility): CTDIvol = ( 24.02 ) mGy, DLP = ( 1380.14 ) mGycm TECHNIQUE: Transaxial images were obtained from the dome of the diaphragm to the symphysis pubis without oral contrast, and without intravenous contrast. Sagittal and coronal images were reconstructed. Individualized dose optimization techniques were used for this CT. COMPARISON: September 03, 2019 FINDINGS: The visualized lung bases are unremarkable. The visualized portions of the heart are within normal limits. Fatty liver. Status post cholecystectomy. No significant dilatation of the extrahepatic biliary system. Enlarged spleen. Normal pancreas. Normal bilateral adrenal glands. Punctate stones are noted of the kidneys without hydronephrosis. 8 mm exophytic cyst of the left kidney. Normal visualized stomach. Mild focal prominence of the small intestine with evidence of previous surgery in the upper pelvic level. No sign of bowel obstruction. Normal colon. The appendix is not visualized. Normal abdominal aorta. Normal inferior vena cava. Normal retroperitoneum. Normal urinary bladder. Normal uterus. Probable tubal ligation clips bilaterally in the pelvis. Normal abdominal wall. Mild degenerative vertebral changes. Stable sclerotic focus of T9. CT/Abdomen/Pelvis without Cont IMPRESSION: Nonobstructive punctate renal stones bilaterally. No hydronephrosis. Left renal cyst. Fatty liver. Enlarged spleen. Focally prominent distal small bowel loop without obstructive pattern noted. Electronically Signed: José Ramey DO at 22:41 EST Tel [phone], Service support ,
--- NOTE | 2019-10-01 21:23 | ED.VISSUMM ---
- ER Visit Summary Date of Service: 10/01/19 Chief Complaint: Abdominal pain History of Present Illness: The patient is a 34 F who presents with abdominal pain. She started with this pain about 5 hours ago. She was at work when she lifted something started with his pain. Sharp and diffuse. Nothing makes it better or worse. She vomited once at home due to the pain. No diarrhea. Denies any urinary symptoms. She took nothing for this at home. She states she has had a history of 17 abdominal surgeries and has had septic shock due to a wound infection after [address] Guerrero is her latest surgeon. She denies any fevers. Physical Examination: Vital signs reviewed. HEENT exam unremarkable. Heart is regular rate and rhythm without murmurs. Lungs are clear to auscultation. Abdomen is soft with diffuse tenderness to palpation. She has no guarding or rebound tenderness. Extremities reveal no edema. Skin exam normal. Neurologic exam normal. Test Results: Laboratory studies show a white blood cell count of 12.1, glucose 116. CAT scan reveals fatty liver, enlarged spleen. There is also a prominent small bowel loop without any evidence of obstruction or ileus. No other acute abnormalities are seen Emergency Department Course and Treatment: The patient was given morphine and Phenergan. She feels much better. I see no acute causes for her pain. After I evaluated her and told her she was being discharged she called the nurse and stated that her pain is now a 7 out of 10. I will give her a dose of Bentyl here for discharge. I will give her Bentyl and Phenergan for home. She will need to call her surgeon for follow-up. Treatment Plan: [] Disposition: Discharge Impression: Abdominal pain This note was generated with [employer] dictation software. It may contain incorrect words, spelling, and punctuation that were not noted in review of the chart prior to signing ED Disposition - Plan for ED Patient: Disposition: Home or Assisted Living Instructions: ABDOMINAL PAIN, Unknown Cause, (Female) Prescriptions: Dicyclomine HCl [Bentyl] 20 mg PO TIDAC #20 cap Prescription Printed proMETHazine tablet [Phenergan] 25 mg PO Q6H PRN PRN #10 tab PRN Reason: Nausea Prescription Printed Referrals: Jose Barron MD [Primary Care Provider] -
[2019-10-01] MEDS: proMETHazine 25 MG/ML Syringe 12.5 MG IV (21:46)
[2019-10-01] MEDS: Morphine 4 MG/ML Syringe IV (21:46)
[2019-10-01 21:58] LABS: Absolute Lymphocyte Count 3.17 X10^3/uL (0.83-4.51); Absolute Neutrophil Count 7.9 X10^3/uL (2.0-7.7); Basophil# 0.05 X10^3/uL; Basophil% 0.4 % (0-1); Eosinophil# 0.23 X10^3/uL; Eosinophils% 1.9 % (0-5); Hematocrit 42.5 % (37-47); Hemoglobin 14.2 g/dL (12.0-15.0); Lymphocyte # 3.17 X10^3/ul (4.0); Lymphocyte % 26.3 % (19-41); Mean Corp Hgb Conc 33.4 g/dL (32-36); Mean Corpuscular Hgb 29.9 pg (27.0-32.0); Mean Corpuscular Volume 89.5 fL (81-99); Mean Platelet Vol. 8.9 fl (6.2-12.0); Monocyte# 0.66 X10^3/uL; Monocyte% 5.5 % (0-10); NRBC Flagged by Analyzer 0 % (0-5); Neutrophil # 7.89 X10^3/uL (2.7-7.7); Neutrophil % 65.3 % (47-70); Platelet Count 321 K/mm3 (150-450); RBC Distribution Width CV 12.2 % (11.6-14.6); RBC Distribution Width SD 39.8 fl (35.1-43.9); Red Blood Count 4.75 M/mm3 (4.2-5.4); White Blood Count 12.1 K/mm3 (4.4-11.0)
[2019-10-01 22:09] LABS: ALB/GLOB Ratio 1.2 RATIO (0.9-2.4); AST(SGOT) 15 U/L (15-37); Alanine Aminotransfer ALT/SGPT 26 U/L (13-56); Albumin, Serum 4.1 g/dL (3.2-5.0); Alkaline Phosphatase 59 U/L (45-117); Anion Gap 9 (5-15); BUN 12 mg/dL (7-18); BUN/Creat Ratio 15.5 RATIO (10-20); Calcium,Total 9.8 mg/dL (8.5-10.1); Chloride 106 mmol/L (98-107); Creatinine, Serum 0.78 mg/dL (0.55-1.02); EST Glomerular Filtration Rate 90 mL/min (>60); Est Glom Filt Rate - Afr Amer 109 mL/min (>60); Estimated Creatinine Clearance 91.45 ml/min; Globulin 3.4 g/dL (2.2-4.2); Glucose 116 mg/dL (74-106); Potassium 3.7 mmol/L (3.5-5.1); Protein, Total 7.5 g/dL (6.4-8.2); Sodium Level 138 mmol/L (136-145)
[2019-10-01] MEDS: Dicyclomine 20 MG/2 ML Vial IM (23:08)
[2019-10-01 23:11] VITALS: BP 126/76; PULSE 93; RESP 16; O2SAT 97
== END 2019-10-01 23:35 | disposition home or self-care (01) ==
PROVIDERS: Emergency Provider Emergency Medicine; Family Provider Family Medicine; PCP Family Medicine
DX: R10.84 Generalized abdominal pain (principal); K76.0 Fatty (change of) liver, not elsewhere classified; R16.1 Splenomegaly, not elsewhere classified
CPT/HCPCS: 74176; 80053; 85025; 96372; 96374; 96375; 99285; A4216

== ENCOUNTER 2019-11-08 16:26 | Emergency (ER) | payer MEDICAID, SELFPAY ==
[2019-11-08 16:27] VITALS: BP 155/113; PULSE 132; RESP 16; TEMP 36.3; O2SAT 96; BMI 49.6
--- NOTE | 2019-11-08 16:51 | CT_ITS ---
STUDY: CT ABDOMEN AND PELVIS WITH CONTRAST REASON FOR EXAM: Female, 34 years old. ABD PAIN X 4 DAYS, HX SBO,HERNIA MESH REPAIR,CHOLECYSTECTOMY, APPENDECTOMY, TUBAL LIGATION -- UNABLE TO DRINK ALL OF PO CONTRAST RADIATION DOSAGE (If Supplied By Facility): CTDIvol = ( 17.07 ) mGy, DLP = ( 1315.82 ) mGycm TECHNIQUE: Transaxial images were obtained from the dome of the diaphragm to the symphysis pubis without oral contrast. Oral and amp; IV Gastrografin and amp; 100mL Isovue-300 was administered. Sagittal and coronal images were reconstructed. Individualized dose optimization techniques were used for this CT. COMPARISON: 10/01/2019, 09/03/2019, 07/18/2019. FINDINGS: Lung bases are clear. Heart size is normal. Diffuse fatty infiltration of the liver. No focal lesion. The gallbladder is unremarkable. The spleen and pancreas are unremarkable. The adrenal glands are normal. 1.6 cm right renal cyst. The kidneys are otherwise unremarkable. No stones or hydronephrosis. The aorta is normal in caliber. There is no free fluid, free air, or organized collection. No bowel obstruction or inflammatory change. Urinary bladder is unremarkable. Small, fat-containing right paraumbilical hernia. This is new compared to the prior study of 09/03/2019. Normal osseous structures. CT/Abdomen/Pelvis WITH Contrast IMPRESSION: 1. No acute findings. 2. Small, fat-containing right paraumbilical hernia. 3. Hepatic steatosis. 4. Right renal cyst. Electronically Signed: Doris Ford MD at 19:30 EST Tel , Service support ,
--- NOTE | 2019-11-08 16:53 | ED.VISSUMM ---
- ER Visit Summary Date of Service: 11/08/19 Chief Complaint: Abdominal pain History of Present Illness: The patient is a 34 F presenting with abdominal pain. This started on Tuesday. She has had progressively worsening abdominal pain throughout the week. She has history of 7 hernia surgeries in the past as well as small bowel obstructions. She has had nausea vomiting. She states she had diarrhea earlier today but now is having trouble having a bowel movement. She denies fever. Denies urinary complaints. Denies other complaints. Physical Examination: Vitals are stable. Patient is afebrile. Alert no acute distress. HEENT exam is unremarkable. Neck is supple. Lungs are clear and equal bilaterally. Heart is regular rate and rhythm. Abdomen is soft diffuse tenderness with no guarding or rebound. Extremities are unremarkable. Skin is warm and dry. No focal neurologic deficit. Remainder of exam is unremarkable. Emergency Department Course and Treatment: Patient was given IV fluids, morphine, Phenergan. CBC shows white count 12.6. Chemistries show glucose 123. Liver lipase are normal. Urinalysis shows 0-5 white blood cells, 0 red blood cells. hCG negative. Patient continues to have pain and was given Dilaudid IV. CT abdomen pelvis shows no acute findings. Small, fat-containing right paraumbilical hernia. Hepatic steatosis. Right renal cyst. On reevaluation, patient resting comfortably. She has Bentyl at home that she can use. She is given prescription for Phenergan. Advised to follow-up with her primary care physician. Advised return to ED if worsening complaints. Disposition: Discharge home Impression: Abdominal pain This note was generated with [employer] dictation software. It may contain incorrect words, spelling, and punctuation that were not noted in review of the chart prior to signing ED Disposition - Plan for ED Patient: Instructions: ABDOMINAL PAIN, Unknown Cause, (Female) Prescriptions: proMETHazine tablet [Phenergan] 25 mg PO Q6H PRN PRN #10 tab PRN Reason: Nausea Prescription Printed Referrals: Jose Barron MD [Primary Care Provider] -
[2019-11-08] MEDS: 0.9% Normal Saline 1,000 ML 1000 ML IV (17:17)
[2019-11-08] MEDS: Morphine 4 MG/ML Syringe IV (17:17)
[2019-11-08] MEDS: proMETHazine 25 MG/ML Syringe 6.25 MG IV ×2 (17:18→18:33)
[2019-11-08 17:20] VITALS: BP 148/74; PULSE 101; RESP 20; O2SAT 96
[2019-11-08 17:21] LABS: Absolute Neutrophil Count 8.9 X10^3/uL (2.0-7.7); Basophil# 0.05 X10^3/uL; Basophil% 0.4 % (0-1); Eosinophils% 1.6 % (0-5); Hematocrit 44.5 % (37-47); Hemoglobin 14.6 g/dL (12.0-15.0); Lymphocyte % 21.4 % (19-41); Mean Corp Hgb Conc 32.8 g/dL (32-36); Mean Corpuscular Hgb 29.5 pg (27.0-32.0); Mean Corpuscular Volume 89.9 fL (81-99); Mean Platelet Vol. 8.9 fl (6.2-12.0); Monocyte# 0.61 X10^3/uL; Monocyte% 4.8 % (0-10); NRBC Flagged by Analyzer 0 % (0-5); Neutrophil # 8.93 X10^3/uL (2.7-7.7); Neutrophil % 70.8 % (47-70); Platelet Count 326 K/mm3 (150-450); RBC Distribution Width CV 12.5 % (11.6-14.6); RBC Distribution Width SD 40.6 fl (35.1-43.9); Red Blood Count 4.95 M/mm3 (4.2-5.4); White Blood Count 12.6 K/mm3 (4.4-11.0)
[2019-11-08 17:30] LABS: Mucous, Urine 0 SEEN /hpf (<or=2+); Red Blood Cells-Urine 0 SEEN /hpf (0-5)
[2019-11-08 17:36] LABS: ALB/GLOB Ratio 0.9 RATIO (0.9-2.4); AST(SGOT) 14 U/L (15-37); Alanine Aminotransfer ALT/SGPT 31 U/L (13-56); Albumin, Serum 3.6 g/dL (3.2-5.0); Alkaline Phosphatase 57 U/L (45-117); Anion Gap 6 (5-15); BUN 8 mg/dL (7-18); BUN/Creat Ratio 12.5 RATIO (10-20); Calcium,Total 9.2 mg/dL (8.5-10.1); Chloride 108 mmol/L (98-107); Creatinine, Serum 0.64 mg/dL (0.55-1.02); EST Glomerular Filtration Rate 113 mL/min (>60); Est Glom Filt Rate - Afr Amer 137 mL/min (>60); Estimated Creatinine Clearance 111.45 ml/min; Globulin 3.8 g/dL (2.2-4.2); Glucose 123 mg/dL (74-106); Lipase 94 U/L (73-393); Potassium 3.8 mmol/L (3.5-5.1); Protein, Total 7.4 g/dL (6.4-8.2); Sodium Level 137 mmol/L (136-145)
[2019-11-08 18:01] LABS: Internal QC Validated? YES +Cl - CLEAR BKGD; Pregnancy, Serum, hCG Quali. NEGATIVE Negative
[2019-11-08 18:17] LABS: Color, Urine Yellow (Yellow); Glucose, Dipstick Normal (Normal); Ketone-Dipstick Negative (Negative); Leukocyte Esterase-Dipstick Negative /ul (Negative); Nitrite-Dipstick Negative (Negative); Occult Blood-Urine Negative /ul (Negative); Protein-Dipstick 30 mg/dl (Negative); Urine Bilirubin Dipstick Negative (Negative); Urine Clarity Sl. Cloudy (Clear); Urine Urobilinogen Normal (Normal)
[2019-11-08 18:29] LABS: Bacteria 1+ /hpf (None Seen); Calcium Oxalate Crystals Ur 1+ /hpf (<or=2+); Squamous Epithelial Cells - UA 5-10 SEEN /hpf (5-10); White Blood Cells 0-5 SEEN /hpf (0-5)
[2019-11-08] MEDS: HYDROmorphone 1 MG/ML Syringe IV (18:33)
[2019-11-08 18:39] VITALS: BP 123/72; PULSE 104; RESP 20; O2SAT 96
--- NOTE | 2019-11-08 19:52 | ED.DEP ---
ED Disposition - Plan for ED Patient: Instructions: ABDOMINAL PAIN, Unknown Cause, (Female) Prescriptions: proMETHazine tablet [Phenergan] 25 mg PO Q6H PRN PRN #10 tablet PRN Reason: Nausea Referrals: Jose Barron MD [Primary Care Provider] -
[2019-11-08 20:03] VITALS: BP 137/74; PULSE 99; RESP 20; O2SAT 94
== END 2019-11-08 20:04 | disposition home or self-care (01) ==
PROVIDERS: Emergency Provider Emergency Medicine; PCP Family Medicine
DX: R10.84 Generalized abdominal pain (principal); K42.9 Umbilical hernia without obstruction or gangrene; K76.0 Fatty (change of) liver, not elsewhere classified; N28.1 Cyst of kidney, acquired
CPT/HCPCS: 74177; 80053; 81001; 83690; 84703; 85025; 96361; 96374; 96375; 96376; 99283; J7030; Q9967; A4216

== ENCOUNTER 2019-11-10 21:43 | Emergency (ER) | payer MEDICAID, SELFPAY ==
[2019-11-10 21:44] VITALS: BP 141/83; PULSE 129; RESP 20; TEMP 36.6; O2SAT 97; BMI 51.9
--- NOTE | 2019-11-10 22:18 | CT_ITS ---
STUDY: CT ABDOMEN AND PELVIS WITH CONTRAST REASON FOR EXAM: Female, 34 years old. Right-sided abdominal pain. RADIATION DOSAGE (If Supplied By Facility): CTDIvol = ( 18.74 ) mGy, DLP = ( 1326.55 ) mGycm TECHNIQUE: Transaxial images were obtained from the dome of the diaphragm to the symphysis pubis without oral contrast. IV 100mL Isovue-370 was administered. Sagittal and coronal images were reconstructed. Individualized dose optimization techniques were used for this CT. COMPARISON: Numerous prior exams including 11/08/2019. It is noted that this patient has had 6 prior CTs of the abdomen and pelvis in 5 months. FINDINGS: The visualized lung bases are unremarkable. The visualized portions of the heart are within normal limits. There is decreased attenuation of the liver consistent with steatosis. Marked hepatomegaly. There are surgical clips in the gallbladder fossa consistent with a prior cholecystectomy. There is moderate splenomegaly. Normal pancreas. Normal bilateral adrenal glands. Normal right kidney with stable small cyst. Normal left kidney. Evaluation of the GI tract is limited by absence of oral contrast. Cannot exclude stomach wall thickening. No dilated loops of bowel or evidence for obstruction. Cannot exclude segmental thickening of the rabago of the small or large bowel. Cannot exclude enteritis or colitis. Moderate diffuse fecal retention. Normal abdominal aorta. Normal inferior vena cava. Normal retroperitoneum. Normal urinary bladder. Normal visualized uterus. There is a stable small to moderate umbilical hernia containing fat. Normal osseous structures. CT/Abdomen/Pelvis W IV Cont ONLY IMPRESSION: Continued negative for any acute abnormalities. Fatty liver with hepatosplenomegaly. Note that this patient has had 6 prior CTs of the abdomen and pelvis in 5 months. Electronically Signed: Donald Quiroz MD at 22:56 EST , Service support ,
--- NOTE | 2019-11-10 22:21 | ED.VIS.GEN ---
History of Present Illness Chief Complaint: General Illness Narrative: Patient presents the emergency department abdominal pain. She tells me she got sick with nausea and vomiting and abdominal pain Tuesday or . She was seen in the emergency department had negative CT essentially negative labs. She states that tonight she went to sit up and felt the pain on the right side of her abdomen. She has had a possible Blanca-en-Y surgery. And she has had multiple ventral hernia repairs. No fevers. Last bowel movement was watery and last night. She states she has not had any solid foods. She was drinking Gatorade earlier today Past Medical History - Allergies and Home Meds Allergies/Adverse Reactions: Allergies ketorolac tromethamine [From Toradol] Allergy (Verified 10/01/19 21:03) Shortness of breath ondansetron HCl [From Zofran] Allergy (Verified 10/01/19 21:03) Shortness of breath Primary Care Physician: Jose Barron MD [Primary Care Provider] - Surgical History: appendectomy, cholecystectomy, herniorrhaphy - x6. Patient reported that a mass was removed in her left lower quadrant. She reported that after she had an infection at the site where the mass was removed for which reason she had another surgery and then a wound VAC was placed., - - 3- sections, ventral and incisional hernia repairs with mesh x 6, cholecystectomy, appendectomy, tonsillectomy, recent exploratory laparotomy with lysis of adhesions and possible mesh removal. Smoking Status: Former smoker - Family History Maternal Family History: Reports: Diabetes, Heart Disease, Hypertension, Stroke Paternal Family History: Reports: Cancer - Colon, Diabetes, Heart Disease, Hypertension Review of Systems General: Denies: Chills, Fever, Sweats Eyes: Denies: Visual changes - bilaterally, Diplopia ENT: Denies: Rhinorrhea, Sore throat Cardiovascular: Denies: Chest pain, Palpitations Respiratory: Denies: Dyspnea, Cough, Dyspnea on exertion Gastrointestinal: Reports: Abdominal pain, Nausea, Vomiting, Diarrhea. Denies: Melena, Hematochezia Genitourinary: Denies: Dysuria, Hematuria, Frequency Musculoskeletal: Denies: Back pain, Extremity Pain Skin: Denies: Rash, Wounds Neurological: Denies: Headache, Weakness, Numbness Physical Exam Vital Signs/Narrative: Vital Signs Temp Pulse Resp BP Pulse Ox 11/10/19 21:44 97.8 F 129 H 20 H 141/83 H 97 Inital Vital Signs reviewed: Yes General: Well nourished, Well developed, Obese, No Acute Distress Head: Normocephalic, Atraumatic Eyes: Perrl, EOMI ENT: Moist mucous membranes, No rhinorrhea Neck: Supple, Nontender Cardiovascular: Regular rate, No murmurs, Tachycardia Respiratory: No distress, CTA bilaterally, Chest nontender, - - Patient is tachypneic Abdomen: Soft, Nondistended, Normal bowel sounds, Tender, - - Patient's body habitus does limit the palpation of her abdomen. Tenderness palpation diffusely over the right side of her abdomen. Well-healed midline incision. Back: Nontender, Normal Inspection Extremities: Nontender, No edema Skin: Normal color, No rash Neurological: Alert, Oriented x3, Cranial nerves II-XII grossly intact, Normal Strength, Normal Sensation Psychological: Normal affect, Normal Mood Diagnostic/Tx/Re-eval - Medical Decision Making Basic labs showed a white count of 15. CT of the abdomen pelvis does not demonstrate any small bowel obstruction colitis free air or other complication. There is a chronic hernia. Patient received morphine and Phenergan. She states it did nothing for her she got Bentyl and Phenergan. I suspect this between her vomiting and trying to sit up maybe she strained abdominal wall musculature. Either way her labs are reassuring as is the CT. Think this is abdominal wall strain and should be discharged. Patient was advised that she has had numerous CTs in a shorter period of time. She needs to be following up and discussing long-term evaluation of her abdominal pain which seems to be coming chronic. ED Disposition - Plan for ED Patient: Disposition: Home or Assisted Living Diagnosis: Abdominal pain Instructions: VOMITING (6y-Adult), MUSCLE STRAIN, Abdomen Referrals: Jose Barron MD [Primary Care Provider] - As soon as possible
[2019-11-10] MEDS: Morphine 4 MG/ML Syringe IV (22:22)
[2019-11-10] MEDS: 0.9% Normal Saline 1,000 ML 1000 ML IV (22:22)
[2019-11-10] MEDS: proMETHazine 25 MG/ML Syringe 12.5 MG IV (22:23)
[2019-11-10 22:29] LABS: Absolute Neutrophil Count 9.9 X10^3/uL (2.0-7.7); Basophil# 0.05 X10^3/uL; Basophil% 0.3 % (0-1); Eosinophil# 0.25 X10^3/uL; Eosinophils% 1.6 % (0-5); Hematocrit 43.8 % (37-47); Hemoglobin 14.5 g/dL (12.0-15.0); Lymphocyte % 27.7 % (19-41); Mean Corp Hgb Conc 33.1 g/dL (32-36); Mean Corpuscular Hgb 29.7 pg (27.0-32.0); Mean Corpuscular Volume 89.8 fL (81-99); Monocyte# 0.83 X10^3/uL; Monocyte% 5.3 % (0-10); NRBC Flagged by Analyzer 0 % (0-5); Neutrophil # 9.94 X10^3/uL (2.7-7.7); Neutrophil % 63.9 % (47-70); Platelet Count 389 K/mm3 (150-450); RBC Distribution Width CV 12.6 % (11.6-14.6); RBC Distribution Width SD 40.9 fl (35.1-43.9); Red Blood Count 4.88 M/mm3 (4.2-5.4); White Blood Count 15.6 K/mm3 (4.4-11.0)
[2019-11-10 22:41] LABS: AST(SGOT) 8 U/L (15-37); Alanine Aminotransfer ALT/SGPT 27 U/L (13-56); Albumin, Serum 3.9 g/dL (3.2-5.0); Alkaline Phosphatase 61 U/L (45-117); Anion Gap 9 (5-15); BUN 9 mg/dL (7-18); Calcium,Total 9.2 mg/dL (8.5-10.1); Chloride 106 mmol/L (98-107); Creatinine, Serum 0.64 mg/dL (0.55-1.02); EST Glomerular Filtration Rate 112 mL/min (>60); Est Glom Filt Rate - Afr Amer 135 mL/min (>60); Estimated Creatinine Clearance 111.45 ml/min; Globulin 3.8 g/dL (2.2-4.2); Glucose 124 mg/dL (74-106); Lipase 152 U/L (73-393); Potassium 3.7 mmol/L (3.5-5.1); Protein, Total 7.7 g/dL (6.4-8.2); Sodium Level 137 mmol/L (136-145)
[2019-11-10] MEDS: 0.9% Normal Saline 1,000 ML 125 ML IV (23:42)
[2019-11-10] MEDS: LORazepam 2 MG/ML Syringe 1 MG IV (23:42)
[2019-11-10 23:44] VITALS: BP 132/77; PULSE 81
[2019-11-11 00:11] LABS: Mucous, Urine 0 SEEN /hpf (<or=2+); Red Blood Cells-Urine 0 SEEN /hpf (0-5)
[2019-11-11 00:22] LABS: Color, Urine Yellow (Yellow); Glucose, Dipstick Normal (Normal); Ketone-Dipstick Negative (Negative); Leukocyte Esterase-Dipstick 25 /ul (Negative); Nitrite-Dipstick Negative (Negative); Occult Blood-Urine 10 /ul (Negative); Protein-Dipstick 15 mg/dl (Negative); Urine Bilirubin Dipstick Negative (Negative); Urine Clarity Sl. Cloudy (Clear); Urine Urobilinogen Normal (Normal)
[2019-11-11 00:32] LABS: Internal QC Validated? YES +Cl - CLEAR BKGD; Pregnancy, Urine Negative Negative
[2019-11-11 00:37] LABS: Bacteria 1+ /hpf (None Seen); Squamous Epithelial Cells - UA 5-10 SEEN /hpf (5-10); White Blood Cells 0-5 SEEN /hpf (0-5)
[2019-11-11] MEDS: Dicyclomine 20 MG/2 ML Vial IM (00:50)
[2019-11-11] MEDS: proMETHazine 25 MG/ML Syringe 12.5 MG IV (00:50)
[2019-11-11 02:03] VITALS: BP 143/97; PULSE 92; RESP 15
== END 2019-11-11 02:04 | disposition home or self-care (01) ==
PROVIDERS: Emergency Provider Emergency Medicine; PCP Family Medicine
DX: R10.9 Unspecified abdominal pain (principal); E66.9 Obesity, unspecified; Z87.891 Personal history of nicotine dependence
CPT/HCPCS: 74177; 80053; 81001; 81025; 83690; 85025; 96361; 96372; 96374; 96375; 96376; 99284; J7030

== ENCOUNTER 2019-11-12 02:43 | Emergency (ER) | payer MEDICAID, SELFPAY ==
[2019-11-12 02:43] VITALS: BP 118/94; PULSE 87; RESP 18; TEMP 36.4; O2SAT 98; BMI 51.9
--- NOTE | 2019-11-12 02:50 | EKG12_ITS ---
Test Reason : ABD PAIN Blood Pressure : / mmHG Vent. Rate : 083 BPM Atrial Rate : 083 BPM P-R Int : 154 ms QRS Dur : 080 ms QT Int : 386 ms P-R-T Axes : 000 069 024 degrees QTc Int : 453 ms Normal sinus rhythm Normal ECG Confirmed by PATRICK DODD, JASKARAN ([id number]), acquisitions editor CHANTELL COWAN ([id number]) on 11/13/2019 8:20:00 AM Referred By: EVAN Confirmed By:JASKARAN NGUYEN MD
--- NOTE | 2019-11-12 02:51 | RAD_ITS ---
STUDY: X-RAY - ACUTE ABDOMINAL SERIES REASON FOR EXAM: Female, 34 years old. c/o rt sided abd pain, nausea and amp; vomiting x months -- hx of hernias TECHNIQUE: Single view of the chest. Supine, and erect view(s) of the abdomen were obtained. COMPARISON: 07/23/2019. FINDINGS: There is chronic elevation of the right hemidiaphragm. There is no demonstrated pulmonary infiltrate. Normal size heart. Normal mediastinum and denisse. Normal visualized pulmonary arteries. Normal visualized aortic arch and descending thoracic aorta. There is a non-specific bowel gas pattern. The soft tissue structures of the abdomen and pelvis are unremarkable. There are tubal ligation clips overlying the pelvis. Normal visualized osseous structures. RAD/Acute Abdomen Inc Chest IMPRESSION: No evidence for acute cardiopulmonary pathology. Nonspecific nonobstructive bowel gas pattern. Electronically Signed: Javier Sher MD at 5:02 EST , Service support ,
[2019-11-12 03:19] LABS: Absolute Neutrophil Count 9.1 X10^3/uL (2.0-7.7); Basophil# 0.05 X10^3/uL; Basophil% 0.4 % (0-1); Eosinophils% 1.5 % (0-5); Hematocrit 40.3 % (37-47); Hemoglobin 13.6 g/dL (12.0-15.0); Lymphocyte % 24.1 % (19-41); Mean Corp Hgb Conc 33.7 g/dL (32-36); Mean Corpuscular Hgb 30.3 pg (27.0-32.0); Mean Corpuscular Volume 89.8 fL (81-99); Mean Platelet Vol. 8.9 fl (6.2-12.0); Monocyte# 0.65 X10^3/uL; Monocyte% 4.9 % (0-10); NRBC Flagged by Analyzer 0 % (0-5); Neutrophil # 9.05 X10^3/uL (2.7-7.7); Neutrophil % 68.3 % (47-70); Platelet Count 280 K/mm3 (150-450); RBC Distribution Width CV 12.4 % (11.6-14.6); RBC Distribution Width SD 40.4 fl (35.1-43.9); Red Blood Count 4.49 M/mm3 (4.2-5.4); White Blood Count 13.3 K/mm3 (4.4-11.0)
[2019-11-12 03:38] LABS: AST(SGOT) 9 U/L (15-37); Alanine Aminotransfer ALT/SGPT 25 U/L (13-56); Albumin, Serum 3.5 g/dL (3.2-5.0); Alkaline Phosphatase 54 U/L (45-117); Anion Gap 9 (5-15); BUN 9 mg/dL (7-18); BUN/Creat Ratio 14.3 RATIO (10-20); Calcium,Total 8.6 mg/dL (8.5-10.1); Chloride 107 mmol/L (98-107); Creatinine, Serum 0.63 mg/dL (0.55-1.02); EST Glomerular Filtration Rate 115 mL/min (>60); Est Glom Filt Rate - Afr Amer 139 mL/min (>60); Estimated Creatinine Clearance 113.22 ml/min; Globulin 3.5 g/dL (2.2-4.2); Glucose 116 mg/dL (74-106); Lipase 141 U/L (73-393); Potassium 3.6 mmol/L (3.5-5.1); Sodium Level 138 mmol/L (136-145)
--- NOTE | 2019-11-12 03:38 | ED.VIS.GEN ---
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 She states that she last vomited late in the afternoon yesterday. She gave herself a Phenergan suppository and has not vomited since. Tonight she had a sharp pain on the right side of her abdomen and states that she must have passed out. Her mother called EMS. She has had abdominal pain and syncope in the past. Yesterday she had essentially normal labs slightly elevated white count and a negative CT of the abdomen pelvis for acute. Past Medical History - Allergies and Home Meds Allergies/Adverse Reactions: Allergies ketorolac tromethamine [From Toradol] Allergy (Verified 10/01/19 21:03) Shortness of breath ondansetron HCl [From Zofran] Allergy (Verified 10/01/19 21:03) Shortness of breath Primary Care Physician: Jose Barron MD [Primary Care Provider] - Surgical History: appendectomy, cholecystectomy, herniorrhaphy - x6. Patient reported that a mass was removed in her left lower quadrant. She reported that after she had an infection at the site where the mass was removed for which reason she had another surgery and then a wound VAC was placed., - - 3- sections, ventral and incisional hernia repairs with mesh x 6, cholecystectomy, appendectomy, tonsillectomy, recent exploratory laparotomy with lysis of adhesions and possible mesh removal. Smoking Status: Never smoker - Family History Maternal Family History: Reports: Diabetes, Heart Disease, Hypertension, Stroke Paternal Family History: Reports: Cancer - Colon, Diabetes, Heart Disease, Hypertension Review of Systems General: Denies: Chills, Fever, Sweats Eyes: Denies: Visual changes - bilaterally, Diplopia ENT: Denies: Rhinorrhea, Sore throat Cardiovascular: Denies: Chest pain, Palpitations Respiratory: Denies: Dyspnea, Cough, Dyspnea on exertion Gastrointestinal: Reports: Abdominal pain, Nausea, Vomiting. Denies: Diarrhea, Melena, Hematochezia Genitourinary: Denies: Dysuria, Hematuria, Frequency Musculoskeletal: Denies: Back pain, Extremity Pain Skin: Denies: Rash, Wounds Neurological: Denies: Headache, Weakness, Numbness Physical Exam Vital Signs/Narrative: Vital Signs Temp Pulse Resp BP Pulse Ox 11/12/19 02:43 97.6 F L 87 18 118/94 H 98 General: Well nourished, Well developed, No Acute Distress Head: Normocephalic, Atraumatic Eyes: Perrl, EOMI ENT: Moist mucous membranes, No rhinorrhea Neck: Supple, Nontender Cardiovascular: Regular rate, Regular rhythm, No murmurs Respiratory: No distress, CTA bilaterally, Chest nontender Abdomen: Soft, Nondistended, Normal bowel sounds, Tender. Negative for: Guarding, Rebound tenderness Back: Nontender, Normal Inspection Extremities: Nontender, No edema Skin: Normal color, No rash Neurological: Alert, Oriented x3, Cranial nerves II-XII grossly intact, Normal Strength, Normal Sensation Diagnostic/Tx/Re-eval - Rhythm Strip Rhythm Strip: Sinus Rhythm Rate: 83 Ectopy: None - Medical Decision Making Sick labs showed a white count of 13. Otherwise labs were negative. Her EKG is a normal sinus. Acute abdominal series with chest showed no acute findings. Specifically no evidence of small bowel obstruction or ileus. Patient received Phenergan x2. She is still having nausea. She still has not passed a p.o. challenge. Her urine drug screen shows cannabis. She has been a longtime cannabis user and given her presentation of abdominal pain without a source and chronic nausea vomiting that is episodic this is most likely a cyclic vomiting. I discussed this with the patient and recommended that she follow-up with gastroenterology. She is plans to do so at [facility]. As she is still symptomatic I have ordered Thorazine and Benadryl. Care of the patient will be turned over to daytime physician for reassessment and final disposition. She has Phenergan both p.o. and suppositories at home. I encouraged her to refrain from cannabis. ED Disposition - Plan for ED Patient: Disposition: Home or Assisted Living Diagnosis: Cyclical vomiting with nausea Instructions: When Your Child Has Cyclic Vomiting Syndrome ([facility]) Referrals: Jose Barron MD [Primary Care Provider] - As soon as possible Additional Instructions: Discussed with you at strongly urged you to follow-up with gastroenterology.
[2019-11-12] MEDS: proMETHazine 25 MG/ML Syringe 12.5 MG IV ×2 (05:06→06:06)
[2019-11-12 06:20] LABS: Amphetamine Urine VISTA NEGATIVE (<1000 ng/mL); Barbiturate Urine VISTA NEGATIVE (< 200 ng/mL); Benzodiazepine Urine VISTA NEGATIVE (< 200 ng/mL); Cocaine Urine VISTA NEGATIVE (< 300 ng/mL); Ecstacy Urine VISTA NEGATIVE (< 500 ng/mL); Methadone Urine VISTA NEGATIVE (< 300 ng/mL); PCP Urine VISTA NEGATIVE (< 25 ng/mL); THC Urine VISTA POSITIVE (< 50 ng/mL); Vista UDS pH Range 6
[2019-11-12 07:22] VITALS: BP 125/86; PULSE 111; RESP 20; O2SAT 95
[2019-11-12] MEDS: ChlorproMAZINE 50 MG/2 ML Ampul IV (07:22)
[2019-11-12] MEDS: DiphenhydrAMINE 50 MG/ML Syringe IV (07:22)
[2019-11-12 07:59] VITALS: BP 111/67; PULSE 112; RESP 20; O2SAT 92
== END 2019-11-12 08:00 | disposition home or self-care (01) ==
PROVIDERS: Emergency Provider Emergency Medicine; PCP Family Medicine
DX: R11.15 Cyclical vomiting syndrome unrelated to migraine (principal)
CPT/HCPCS: 74022; 80053; 80307; 83690; 85025; 93005; 96374; 96375; 96376; 99285; A4216

== ENCOUNTER 2019-12-17 17:25 | Emergency (ER) | payer MEDICAID, SELFPAY ==
[2019-12-17 17:26] VITALS: BP 141/79; PULSE 113; RESP 18; TEMP 36.7; O2SAT 97; BMI 50.1
--- NOTE | 2019-12-17 17:48 | ED.DCSUM_ITS ---
- ER Visit Summary Date of Service: 12/17/19 Chief Complaint: Right-sided periumbilical abdominal pain with known hernia History of Present Illness: The patient is a 34 F: This emergency department. Multiple prior hernia repairs with prior appendectomy cholecystectomy. Patient states she coughed and thinks that she aggravated her right periumbilical hernia. Said this occurred today. Nausea but no vomiting. No diarrhea constipation. No dysuria. No fever. Physical Examination: Female no acute distress vital signs stable afebrile. H EENT exam unremarkable. Moist with membranes. Neck nontender no lymphadenopathy. Lungs clear to auscultation bilaterally. Heart regular rhythm rate about 100 no murmur. Abdomen morbidly obese. Soft. She has a right sided periumbilical hernia about 9:00. Only mildly tender. There is no obvious obstruction. No peritoneal signs. Normal bowel sounds abdomen otherwise is soft. There is a large midline abdominal incision is well-healed. There is no obvious incarcerated or strangulated hernia. She is moving all 4 extremities. There is no edema. Back is nontender. Neurologically she is awake and alert. Test Results: KUB will be obtained to rule out obstruction. Increased stool. No signs of bowel obstruction. No dilated bowel or air-fluid levels. Emergency Department Course and Treatment: I reviewed multiple prior visits on this patient. She has been here multiple times for similar complaints. She has had multiple CAT scans in the last 6 to 8 months. Currently I do not think this hernia is incarcerated nor strangulated. She will be given Compazine for nausea. Treatment Plan: Loyd exam be discharged home. Tylenol Motrin for pain. Follow- up with general surgery for repair of her periumbilical hernia Disposition: Discharge Impression: Acute abdominal pain with known periumbilical hernia This note was generated with [employer] dictation software. It may contain incorrect words, spelling, and punctuation that were not noted in review of the chart prior to signing ED Disposition - Plan for ED Patient: Referrals: Jose Barron MD [Primary Care Provider] -
[2019-12-17] MEDS: proCHLORPERazine 10 MG/2 ML Vial IM (17:51)
--- NOTE | 2019-12-17 18:00 | RAD_ITS ---
STUDY: X-RAY - ABDOMEN/PELVIS REASON FOR EXAM: Female, 34 years old. Nausea, vomiting. Right para umbilical hernia. Hx of hernia repair. TECHNIQUE: Single AP view of the abdomen / pelvis. COMPARISON: November 12, 2019 FINDINGS: Normal visualized lung bases. There is an unremarkable bowel gas pattern. Surgical clips right upper quadrant and 2 tubal ligation clips in the pelvis. The visualized liver, spleen and kidneys are grossly normal in size and morphology. Normal soft tissue structures. Normal visualized osseous structures. RAD/Abdomen Single View (Portable) IMPRESSION: Normal x-ray examination of the abdomen and pelvis. Electronically Signed: Paul Gonzalez MD at 19:16 EDT , Service support ,
--- NOTE | 2019-12-17 18:42 | ED.DEP ---
ED Disposition - Plan for ED Patient: Disposition: Home or Assisted Living Instructions: HERNIA (Inguinal, Ventral, Umbilical) Referrals: Jose Barron MD [Primary Care Provider] - As Needed Will Mendez MD [STAFF PHYSICIAN] - As soon as possible Additional Instructions: No signs of bowel obstruction. Follow-up with local general surgeon or your former general surgeon for evaluation for repair of the periumbilical hernia. Tylenol and/or Motrin for pain.
[2019-12-17 18:47] VITALS: BP 127/63; PULSE 59; RESP 16; O2SAT 98
== END 2019-12-17 18:48 | disposition home or self-care (01) ==
PROVIDERS: Emergency Provider Emergency Medicine; PCP Family Medicine
DX: K42.9 Umbilical hernia without obstruction or gangrene (principal); Z87.891 Personal history of nicotine dependence
CPT/HCPCS: 74018; 96372; 99282

== ENCOUNTER 2019-12-27 22:58 | Emergency (ER) | payer MEDICAID, SELFPAY ==
[2019-12-19 08:41] VITALS: BMI 50.1
[2019-12-27 23:00] VITALS: BP 165/69; PULSE 100; RESP 18; TEMP 36.4; O2SAT 95; BMI 51.2
[2019-12-27] MEDS: proMETHazine 25 MG/ML Syringe 12.5 MG IV (23:47)
[2019-12-27] MEDS: morphine 10 MG/ML Syringe IV (23:49)
[2019-12-28] MEDS: HYDROmorphone 1 MG/ML Syringe IV ×2 (00:44→01:50)
--- NOTE | 2019-12-28 01:17 | ED.DCSUM_ITS ---
History of Present Illness Chief Complaint: Abd Pain Informant: Patient - Abdominal Pain/Flank Pain Onset: Today - several hours prior to arrival Context: Sudden Onset Timing: Continuous Location: - - right mid-abd Current Severity: Moderate Maximum Severity: Severe Worsened by: - - standing Relieved by: - - sitting, but nothing else - Nausea/Vomiting/Emesis GI Symptom: Nausea, Vomiting Episodes: 3 - dry heaves - Diarrhea/Melena/Hematochezia GI Symptom: Negative for: Diarrhea, Melena, Hematochezia Associated Symptoms: Negative for: Dysuria, Frequency, Hematuria, Urgency Narrative: Patient has a history of multiple bowel surgeries in the past including herniorrhaphies and adhesio lysis causing bowel obstructions, her last surgery was the latter in June 2019. She states a week or 2 ago, she was seen here because she was having some discomfort in the right side of her abdomen which is new, she was diagnosed with a hernia there that she has never had before. She states now today, she coughed and suddenly felt something very unusual in that same spot followed by extreme pain that has been persistent. She is concerned she has a strangulated hernia. She called [facility] where she was transferred a couple weeks ago and had no surgery, and they advised that she come in for evaluation of it. She does not have a ride to [facility] so she called her surgeon here and he advised that she come to the local [facility] for evaluation. She states that [facility], they thought this may need a repair non- emergently, but she needed bariatric surgery first before they would consider repair. - Past Medical History (1) Anxiety and depression Status: Chronic (2) GERD (gastroesophageal reflux disease) Status: Chronic (3) History of anxiety disorder Status: Chronic (4) Morbid obesity Status: Chronic (5) JAGJIT (obstructive sleep apnea) Status: Chronic Past Medical History - Allergies and Home Meds Allergies/Adverse Reactions: Allergies ketorolac tromethamine [From Toradol] Allergy (Verified 12/27/19 23:01) Shortness of breath ondansetron HCl [From Zofran] Allergy (Verified 12/27/19 23:01) Shortness of breath Primary Care Physician: Jose Barron MD [Primary Care Provider] - Surgical History: appendectomy, cholecystectomy, herniorrhaphy - x6. Patient reported that a mass was removed in her left lower quadrant. She reported that after she had an infection at the site where the mass was removed for which reason she had another surgery and then a wound VAC was placed., - - 3- sections, ventral and incisional hernia repairs with mesh x 6, cholecystectomy, appendectomy, tonsillectomy, recent exploratory laparotomy with lysis of adhesions and possible mesh removal. Smoking Status: Former smoker - Family History Maternal Family History: Reports: Diabetes, Heart Disease, Hypertension, Stroke Paternal Family History: Reports: Cancer - Colon, Diabetes, Heart Disease, Hypertension Review of Systems General: Denies: Chills, Fever, Sweats Eyes: Denies: Visual changes - bilaterally, Diplopia ENT: Denies: Rhinorrhea, Sore throat Cardiovascular: Denies: Chest pain, Palpitations Respiratory: Reports: Paroxysmal nocturnal dyspnea. Denies: Dyspnea, Cough, Dyspnea on exertion Gastrointestinal: Reports: Abdominal pain, Nausea, Vomiting, - - last BM earlier today. Denies: Diarrhea, Melena, Hematochezia Genitourinary: Denies: Dysuria, Hematuria, Frequency Musculoskeletal: Denies: Neck pain, Back pain, Swelling, Extremity Pain Skin: Denies: Rash, Wounds Neurological: Denies: Headache, Weakness, Numbness Physical Exam Vital Signs/Narrative: Vital Signs Temp Pulse Resp BP Pulse Ox 12/27/19 23:00 97.6 F L 100 18 165/69 H 95 Inital Vital Signs reviewed: Yes General: Well nourished, Well developed, Obese, No Acute Distress - sitting comfortably, conversational w/o apparent discomfort or distress Head: Normocephalic, Atraumatic Eyes: Perrl, EOMI ENT: Moist mucous membranes, No rhinorrhea Neck: Supple, Nontender Cardiovascular: Regular rate, Regular rhythm, No murmurs Respiratory: No distress, CTA bilaterally, Chest nontender Abdomen: Soft, Nondistended, Normal bowel sounds, Tender - diffusely mildly, R mid abd erythemetous and very tender, to right of umbilicus and midline well- healed surgical incision, palpable SQ mass c/w hernia, Guarding - voluntary R mid abd, Ventral hernia. Negative for: Rebound tenderness Back: Nontender, Normal Inspection Extremities: Nontender, No edema Skin: Normal color, No rash, No Trauma Neurological: Alert, Oriented x3, Cranial nerves II-XII grossly intact, Normal Strength, Normal Sensation Psychological: Normal affect, Normal Mood Diagnostic/Tx/Re-eval Impressions Abdomen/Pelvis CT 12/28/19 01:40 IMPRESSION: Multiple ventral hernias as outlined above with multiple postsurgical changes. There is no abscess, collection, perforation or obstruction. Right periumbilical hernia, increased in size since previous examination, containing noncompromised bowel. Stable hepatosplenomegaly, hepatic steatosis, small left renal cyst, postsurgical changes and morbid obesity. Electronically Signed: Nora Thompson MD at 2:44 EDT , Service support , 12/28/19 01:40 Abdomen/Pelvis without Cont [CT] Stat Laboratory Results 12/28/19 12/28/19 01:50 01:50 WBC 8.8 RBC 4.48 Hgb 13.5 Hct 41.3 MCV 92.2 MCH 30.1 MCHC 32.7 RDW Std Deviation 42.6 RDW Coeff of Juan 12.7 Plt Count 258 MPV 9.1 Immature Gran % (Auto) 1.300 H Neut % (Auto) 54.7 Lymph % (Auto) 34.2 [place] % (Auto) 6.7 Eos % (Auto) 2.6 Baso % (Auto) 0.5 Absolute Neuts (auto) 4.8 Absolute Lymphs (auto) 3.01 Nucleated RBC % 0 Sodium 140 Potassium 4.3 Chloride 112 H Carbon Dioxide 24.0 Anion Gap 4 L BUN 13 Creatinine 0.57 Estim Creat Clear Calc 125.14 Est GFR (MDRD) Af Amer 156 Est GFR (MDRD) Non-Af 129 BUN/Creatinine Ratio 22.8 H Glucose 119 H Calcium 8.8 - Medical Decision Making I am concerned the patient may have an incarcerated ventral hernia, consistent with her concern. She is in no distress. However, the situation right now with the viral pandemic has made all hospitals in [place] very cautious or even unable to do surgeries unless they are absolutely necessary. Therefore as I discussed with the patient, I advised for seeing if we could reduce it with lying supine/Trendelenburg with ice applied to it. She was pretreated with IV analgesics. She was agreeable. I told her if this does not work, I would be happy to do another CT to see if in fact she is incarcerated, which is not in her best interest if we are able to avoid it at all possible, because she has had 16 CT scans in the past 2 years prior to today. She agrees with that as well. When she presented the ER was very busy, and when I went back to reevaluate her, the ice pack was warm and on the floor. Therefore I grab to ice packs and applied them directly to the affected area kept her supine, she already had another dose of analgesics as I was following her with the nurses, and I taped them to her abdomen. On reexamination 15 minutes later, I attempted to gently reduce the hernia with the patient and mild Trendelenburg positioning supine, using gentle pressure with both of my palms, I did not get a good feedback, the patient was in a lot of pain even with pretreatment, and she did not feel any different. Therefore I felt it necessary to perform CT scan, it was done without contrast to minimize further delays. As above, it showed that the hernia now contains a small loop of bowel but it does not appear to be incarcerated and there is no sign of any obstruction. I discussed this with the patient, she asked me to call her surgeon. Since it was 3 in the morning, I was able to discuss with her colleague Dr. Villalobos who was on-call [facility], and he agrees that given the current viral global pandemic, this would be a nonemergent surgery, and [facility] are currently on restriction for elective surgeries. He states he is familiar with his colleagues seeing this patient, and knows that this patient has been told this before, as she continues pressing them for surgery. He advised discharging her to follow-up. I discussed all this with the patient. She was given 3 doses of pain medication here. Initially morphine 10 mg, followed by Dilaudid 1 mg, and then another Dilaudid 1 mg. All of this barely phased her pain, subjectively. The only time she was in distress was on I was trying to reduce her hernia. I discussed the possibility of procedural sedation since she has been n.p.o. for over 6 hours, and attempting to reduce it as it appears very small on the CT, and she was in so much pain that my attempts at closed reduction with the patient supine and awake were limited. She is amenable to this. Shortly thereafter as we were organizing medications/IV fluids/paperwork for this but also taking care of other patients that continue to come into the department, she states that she would prefer to be discharged home if it is going to be a while. Therefore she was discharged home with her father. I do not think prescribing her narcotics is going to be worthwhile, since heavy doses of parenteral narcotics were almost worthless. ED Disposition - Plan for ED Patient: Disposition: Home or Assisted Living Diagnosis: Ventral hernia without obstruction or gangrene Instructions: HERNIA (Inguinal, Ventral, Umbilical) Referrals: Dr. Betsy Hurley [Other] - 5-7 Days Additional Instructions: Lie supine/on her back, and ice the affected area. Oftentimes with this, you can get spontaneous reduction of the hernia. You are welcome to return to the ER for reevaluation at any time.
[2019-12-28 01:37] VITALS: RESP 16
--- NOTE | 2019-12-28 01:40 | CT_ITS ---
STUDY: CT ABDOMEN AND PELVIS WITHOUT CONTRAST REASON FOR EXAM: Female, 34 years old. RT ABDOMEN Pain, rt VENTRAL HERNIA DX 1 WEEK AGO -- Hx: mult HERNIAS,GERD,KIDNEY STONES -- Surgeries: hernia REPAIRS,APPENDECTOMY,CHOLECYSTECTOMY, X 3,BOWEL RADIATION DOSAGE (If Supplied By Facility): CTDIvol = ( 23.79 ) mGy, DLP = ( 1307.70 ) mGycm TECHNIQUE: Transaxial 2.5 mm images were obtained from the dome of the diaphragm to the symphysis pubis without oral contrast, and without intravenous contrast. Sagittal and coronal images were reconstructed. This examination is limited for the evaluation of gastrointestinal, solid organs and vascular structures due to the lack of intravenous and oral contrast. There is obesity, the entirety of soft tissue is not imaged. Individualized dose optimization techniques were used for this CT. COMPARISON: CT abdomen pelvis 11/10/2019. 11/08/2019. 10/01/2019 FINDINGS: The visualized lung bases are unremarkable. The visualized portions of the heart are within normal limits. There is decreased attenuation of the liver consistent with steatosis. Hepatomegaly. Liver measures clinical data 22.5 cm. There is prior cholecystectomy. There is mild splenomegaly. Spleen measures 14 cm craniocaudal. Normal pancreas. Normal bilateral adrenal glands. Normal right kidney. Punctate nonobstructing left inferior renal pole calculus. Cortical exophytic low-attenuation of 1.1 cm Normal visualized stomach. There are small bowel anastomoses. Normal colon. There is non-visualization of the appendix. Normal abdominal aorta. Normal inferior vena cava. Normal retroperitoneum. Normal urinary bladder. Bilateral tubal ligation. Morbid obesity. Prior supraumbilical and umbilical hernia repair. There is a right periumbilical hernia with an opening of 6.6 cm with with the hernia sac measuring 3.8 x 6.7 x 6.5 cm containing portion of the small bowel anastomosis. Just superior. It is a smaller fat-containing hernia right periumbilical measuring 2.4 x 4.5 x 3.2 cm with an opening of 2.5 cm. There is stable supraumbilical mild para midline hernia anterior to the liver containing segments off:. Normal osseous structures. CT/Abdomen/Pelvis without Cont IMPRESSION: Multiple ventral hernias as outlined above with multiple postsurgical changes. There is no abscess, collection, perforation or obstruction. Right periumbilical hernia, increased in size since previous examination, containing noncompromised bowel. Stable hepatosplenomegaly, hepatic steatosis, small left renal cyst, postsurgical changes and morbid obesity. Electronically Signed: Nora Thompson MD at 2:44 EDT , Service support ,
[2019-12-28 01:55] LABS: Absolute Lymphocyte Count 3.01 X10^3/uL (0.83-4.51); Absolute Neutrophil Count 4.8 X10^3/uL (2.0-7.7); Basophil# 0.04 X10^3/uL; Basophil% 0.5 % (0-1); Eosinophil# 0.23 X10^3/uL; Eosinophils% 2.6 % (0-5); Hematocrit 41.3 % (37-47); Hemoglobin 13.5 g/dL (12.0-15.0); Lymphocyte # 3.01 X10^3/ul (4.0); Lymphocyte % 34.2 % (19-41); Mean Corp Hgb Conc 32.7 g/dL (32-36); Mean Corpuscular Hgb 30.1 pg (27.0-32.0); Mean Corpuscular Volume 92.2 fL (81-99); Mean Platelet Vol. 9.1 fl (6.2-12.0); Monocyte# 0.59 X10^3/uL; Monocyte% 6.7 % (0-10); NRBC Flagged by Analyzer 0 % (0-5); Neutrophil # 4.82 X10^3/uL (2.7-7.7); Neutrophil % 54.7 % (47-70); Platelet Count 258 K/mm3 (150-450); RBC Distribution Width CV 12.7 % (11.6-14.6); RBC Distribution Width SD 42.6 fl (35.1-43.9); Red Blood Count 4.48 M/mm3 (4.2-5.4); White Blood Count 8.8 K/mm3 (4.4-11.0)
[2019-12-28 02:08] LABS: Anion Gap 4 (5-15); BUN 13 mg/dL (7-18); BUN/Creat Ratio 22.8 RATIO (10-20); Calcium,Total 8.8 mg/dL (8.5-10.1); Chloride 112 mmol/L (98-107); Creatinine, Serum 0.57 mg/dL (0.55-1.02); EST Glomerular Filtration Rate 129 mL/min (>60); Est Glom Filt Rate - Afr Amer 156 mL/min (>60); Estimated Creatinine Clearance 125.14 ml/min; Glucose 119 mg/dL (74-106); Potassium 4.3 mmol/L (3.5-5.1); Sodium Level 140 mmol/L (136-145)
[2019-12-28 04:08] VITALS: BP 148/60; PULSE 79; RESP 18; O2SAT 97
--- NOTE | 2019-12-28 04:09 | ED.RN ---
PT SATED THAT SHE DID NOT WANT TO WAIT FOR THE DOCTOR,HE WANTED TO LEAVE. PT STATED SHE HAS AN APPOINTMENT WITH HER SURGEON ON TUESDAY. DR GLEZ AWARE DISCHARGE PAPERS GIVEN.
== END 2019-12-28 04:11 | disposition home or self-care (01) ==
PROVIDERS: Emergency Provider Emergency Medicine; PCP Family Medicine
DX: K43.9 Ventral hernia without obstruction or gangrene (principal)
CPT/HCPCS: 74176; 80048; 85025; 96361; 96374; 96375; 99283; J7040; A4216

== ENCOUNTER 2019-12-31 13:42 | Emergency (ER) | payer MEDICAID, SELFPAY ==
[2019-12-31 13:43] VITALS: BP 158/89; PULSE 111; RESP 18; TEMP 36.7; O2SAT 96; BMI 50.2
--- NOTE | 2019-12-31 14:02 | ED.DCSUM_ITS ---
- ER Visit Summary Date of Service: 12/31/19 Chief Complaint: Abdominal pain from ventral hernia History of Present Illness: The patient is a 34 F who presents with abdominal pain from her ventral hernia that became worse today. Patient states she normally takes oxycodone for this. Patient states that she ran out of her last pain pill early this morning. Patient states she called her surgeon in [place] and was told to come to the emergency department. Patient states she is unable to go to [place] but came to the emergency department here in [place]. Patient denies any new pain. Patient states she does not feel it is strangulated or incarcerated. Patient states she has had those before and knows what they feel like. Physical Examination: Vital signs are stable except for a mild tachycardia of 111. Patient is afebrile. Patient is in no acute distress. Oral mucosa is pin k and moist. Neck is supple. Trachea is midline. No JVD. Heart was regular rate and rhythm. Lungs are clear and equal bilaterally. Abdomen is soft. Bowel sounds are normal. There is tenderness along the right periumbilical area. There is a hernia noted in this area. This is easily reducible. There is no rebound or guarding noted. Cranial nerves II through XII are intact. There are no focal motor or sensory deficits noted. Emergency Department Course and Treatment: Patient was given injection of morphine here. Patient was advised that we do not refill opiate pain medications. Patient was instructed to call her primary care physician or surgeon for refills of her opiate pain medication. Patient understood and was agreeable with the plan. All questions were answered. Disposition: Discharge home Impression: Abdominal pain This note was generated with [employer] dictation software. It may contain incorrect words, spelling, and punctuation that were not noted in review of the chart prior to signing ED Disposition - Plan for ED Patient: Disposition: Home or Assisted Living Diagnosis: Abdominal pain, Ventral hernia Instructions: HERNIA (Inguinal, Ventral, Umbilical) Referrals: Jose Barron MD [Primary Care Provider] - 3-5 Days
[2019-12-31] MEDS: Morphine 4 MG/ML Syringe IM (14:12)
[2019-12-31 14:16] VITALS: BP 139/87; PULSE 94; RESP 18; O2SAT 94
== END 2019-12-31 14:20 | disposition home or self-care (01) ==
PROVIDERS: Emergency Provider Emergency Medicine; PCP Family Medicine
DX: K43.9 Ventral hernia without obstruction or gangrene (principal); R10.33 Periumbilical pain
CPT/HCPCS: 96372; 99283

== ENCOUNTER 2020-01-23 16:04 | Emergency (ER) | payer MEDICAID, SELFPAY ==
[2020-01-23 16:05] VITALS: BP 144/90; PULSE 160; RESP 24; TEMP 36.8; O2SAT 94; BMI 50.5
--- NOTE | 2020-01-23 16:20 | CT_ITS ---
STUDY: CT ABDOMEN AND PELVIS WITH CONTRAST REASON FOR EXAM: Female, 34 years old. ABDOMEN PAIN, patient has known hernias. RADIATION DOSAGE (If Supplied By Facility): CTDIvol = ( 22.07 ) mGy, DLP = ( 1357.07 ) mGycm TECHNIQUE: Transaxial images were obtained from the dome of the diaphragm to the symphysis pubis with oral contrast. Oral and amp; IV Gastrografin and amp; 100mL Isovue-300 was administered. Sagittal and coronal images were reconstructed. Individualized dose optimization techniques were used for this CT. COMPARISON: 12/28/2019. FINDINGS: The visualized lung bases are unremarkable. The visualized portions of the heart are within normal limits. There is decreased attenuation of the liver consistent with steatosis. There is marked hepatomegaly There are surgical clips in the gallbladder fossa consistent with a prior cholecystectomy. There is moderate splenomegaly. Normal pancreas. Normal bilateral adrenal glands. Normal right kidney with stable 1.6 cm mid renal cyst. Normal left kidney. Normal visualized stomach. Normal small intestine. Normal colon. There is non-visualization of the appendix. Normal abdominal aorta. Normal inferior vena cava. Normal retroperitoneum. Normal urinary bladder. Normal visualized uterus. Several midline ventral hernia is again seen. Most of these contain fat level into the right of the umbilicus contains a short segment of bowel, more than on the previous exam, but without causing obstruction. Normal osseous structures stable probable bone island T9. CT/Abdomen/Pelvis WITH Contrast IMPRESSION: Several ventral hernias generally stable but one to the right of the umbilicus containing a longer segment of bowel without causing obstruction. Hepatosplenomegaly. Electronically Signed: Donald Quiroz MD at 19:11 EDT , Service support ,
--- NOTE | 2020-01-23 16:22 | ED.DCSUM_ITS ---
- ER Visit Summary Date of Service: 01/23/20 Chief Complaint: Abdominal pain History of Present Illness: The patient is a 34 F presenting with abdominal pain. She states this started today. She has a history of multiple hernias. She was admitted to [facility] in December for same complaints. She has been seen in the ED multiple times for this. She did not take any medication prior to arrival. She denies fever. She complains of severe right lower quadrant abdominal pain. She has had nausea and vomiting. She denies diarrhea or constipation. She has history of previous appendectomy and cholecystectomy. She was told at [facility] she will need bariatric surgery before they can repair her hernias. She denies other complaints. Physical Examination: Vitals are stable. Heart rate 160. Patient is afebrile. Alert no acute distress. HEENT exam is unremarkable. Neck is supple. Lungs are clear and equal bilaterally. Heart is regular and tachycardic Abdomen is soft right lower quadrant tenderness, reducible hernia. Extremities are unremarkable. Skin is warm and dry. No focal neurologic deficit. Remainder of exam is unremarkable. Emergency Department Course and Treatment: Patient was given Dilaudid, Phenergan IV. CT abdomen/pelvis shows several ventral hernias generally stable but one to the right of the umbilicus containing a longer segment of bowel without causing obstruction. Hepatosplenomegaly. CBC shows normal white count. Chemistries show potassium 3.0, glucose 145. Urinalysis unremarkable. hCG negative. Lactic acid 3.3. Patient was given IV fluids. She continues to have pain. Her heart rate improved to the 120s. Patient states her work-up has been at [facility] and prefers transfer to [facility]. Discussed with [facility] for transfer. Disposition: Transfer [facility] Impression: Multiple ventral hernias, lactic acidosis, intractable abdominal pain This note was generated with [employer] dictation software. It may contain incorrect words, spelling, and punctuation that were not noted in review of the chart prior to signing ED Disposition - Plan for ED Patient: Referrals: Jose Barron MD [Primary Care Provider] -
[2020-01-23 16:46] LABS: Mucous, Urine 0 SEEN /hpf (<or=2+); Red Blood Cells-Urine 0 SEEN /hpf (0-5)
[2020-01-23 16:55] LABS: Color, Urine Yellow (Yellow); Glucose, Dipstick Normal (Normal); Ketone-Dipstick 50 mg/dl (Negative); Leukocyte Esterase-Dipstick Negative /ul (Negative); Nitrite-Dipstick Negative (Negative); Occult Blood-Urine Negative /ul (Negative); Protein-Dipstick 30 mg/dl (Negative); Urine Bilirubin Dipstick Negative (Negative); Urine Clarity Clear (Clear); Urine Urobilinogen Normal (Normal)
[2020-01-23 17:17] LABS: Bacteria 1+ /hpf (None Seen); Squamous Epithelial Cells - UA 0-5 SEEN /hpf (5-10); White Blood Cells 0-5 SEEN /hpf (0-5)
[2020-01-23] MEDS: 0.9% Normal Saline 1,000 ML 1000 ML IV (17:24)
[2020-01-23] MEDS: proMETHazine 25 MG/ML Syringe 6.25 MG IV ×2 (17:25→18:21)
[2020-01-23 17:28] VITALS: BP 142/74; PULSE 128; RESP 18; O2SAT 97
[2020-01-23] MEDS: HYDROmorphone 1 MG/ML Syringe IV ×3 (17:28→21:55)
[2020-01-23 17:37] LABS: Absolute Lymphocyte Count 2.09 X10^3/uL (0.83-4.51); Absolute Neutrophil Count 7.9 X10^3/uL (2.0-7.7); Basophil# 0.03 X10^3/uL; Basophil% 0.3 % (0-1); Eosinophil# 0.12 X10^3/uL; Eosinophils% 1.1 % (0-5); Hematocrit 40.2 % (37-47); Hemoglobin 13.4 g/dL (12.0-15.0); Lymphocyte # 2.09 X10^3/ul (4.0); Lymphocyte % 19.2 % (19-41); Mean Corp Hgb Conc 33.3 g/dL (32-36); Mean Corpuscular Hgb 30.3 pg (27.0-32.0); Mean Platelet Vol. 8.9 fl (6.2-12.0); Monocyte# 0.61 X10^3/uL; Monocyte% 5.6 % (0-10); NRBC Flagged by Analyzer 0 % (0-5); Neutrophil # 7.94 X10^3/uL (2.7-7.7); Neutrophil % 72.8 % (47-70); Platelet Count 256 K/mm3 (150-450); RBC Distribution Width CV 12.8 % (11.6-14.6); Red Blood Count 4.42 M/mm3 (4.2-5.4); White Blood Count 10.9 K/mm3 (4.4-11.0)
[2020-01-23 17:40] LABS: Internal QC Validated? YES +Cl - CLEAR BKGD; Pregnancy, Serum, hCG Quali. NEGATIVE Negative
[2020-01-23 18:02] LABS: Lactic Acid 3.3 mmol/L (0.4-1.9)
[2020-01-23 18:09] LABS: ALB/GLOB Ratio 1.1 RATIO (0.9-2.4); AST(SGOT) 14 U/L (15-37); Alanine Aminotransfer ALT/SGPT 25 U/L (13-56); Albumin, Serum 3.7 g/dL (3.2-5.0); Alkaline Phosphatase 59 U/L (45-117); Anion Gap 11 (5-15); BUN 15 mg/dL (7-18); BUN/Creat Ratio 21.4 RATIO (10-20); Calcium,Total 8.9 mg/dL (8.5-10.1); Chloride 106 mmol/L (98-107); EST Glomerular Filtration Rate 101 mL/min (>60); Est Glom Filt Rate - Afr Amer 123 mL/min (>60); Globulin 3.5 g/dL (2.2-4.2); Glucose 145 mg/dL (74-106); Protein, Total 7.2 g/dL (6.4-8.2); Sodium Level 137 mmol/L (136-145); Total Bilirubin < 0.10 mg/dL (0.20-1.00)
[2020-01-23] MEDS: 0.9% Normal Saline 1,000 ML 999 ML IV (18:24)
[2020-01-23 18:29] VITALS: PULSE 124; RESP 20; O2SAT 98
[2020-01-23 20:00] VITALS: BP 122/71; PULSE 120; RESP 17; O2SAT 98
[2020-01-23] MEDS: Morphine 4 MG/ML Syringe 6 MG IV (20:30)
--- NOTE | 2020-01-23 20:45 | ED.RN ---
CALLED [facility] FOR TRANSPORT AT 2039, 90 MINUTE ETA GIVEN
[2020-01-23 21:26] LABS: Reflex Lactate? Y
[2020-01-23 22:00] VITALS: BP 119/73; PULSE 124; RESP 18; O2SAT 95
--- NOTE | 2020-01-23 22:00 | ED.RN ---
PHYSICIANS CALLED, THEY ARE DELAYED.
[2020-01-23 22:21] LABS: Lactic Acid 3.1 mmol/L (0.4-1.9)
[2020-01-23 23:00] VITALS: BP 132/71; PULSE 125; RESP 17; TEMP 36.6; O2SAT 95
== END 2020-01-23 23:02 | disposition short-term general hospital (02) ==
LOC: ED 17:08
PROVIDERS: Emergency Provider Emergency Medicine; PCP Family Medicine
DX: K43.9 Ventral hernia without obstruction or gangrene (principal); E87.2 Acidosis; K21.9 Gastro-esophageal reflux disease without esophagitis; E66.01 Morbid (severe) obesity due to excess calories
CPT/HCPCS: 36415; 74177; 80053; 81001; 83605; 84703; 85025; 96361; 96374; 96375; 96376; 99285; J7030; Q9967; A4216

== ENCOUNTER 2020-03-17 07:36 | Emergency (ER) | payer MEDICAID, SELFPAY ==
[2020-03-17 07:37] VITALS: BP 148/99; PULSE 91; RESP 20; TEMP 36.4; O2SAT 97; BMI 50.5
--- NOTE | 2020-03-17 07:48 | CT_ITS ---
STUDY: CT ABDOMEN AND PELVIS WITHOUT CONTRAST REASON FOR EXAM: Female, 34 years old. 6 DAYS POST OP HERNIA REPAIR W/ MESH -- SURG-APPY,GB, X 3, TUBAL LIGATION, LLQ MASS REMOVED, BILE REFLUX SURG RADIATION DOSAGE (If Supplied By Facility): CTDIvol = ( 24.01 ) mGy, DLP = ( 1295.65 ) mGycm TECHNIQUE: Transaxial images were obtained from the dome of the diaphragm to the symphysis pubis without oral contrast, and without intravenous contrast. Sagittal and coronal images were reconstructed. Individualized dose optimization techniques were used for this CT. COMPARISON: Comparison is made with prior examination of January 23, 2020. FINDINGS: The visualized lung bases are unremarkable. The visualized portions of the heart are within normal limits. There is decreased attenuation of the liver consistent with steatosis. Hepatomegaly. There are surgical clips in the gallbladder fossa consistent with a prior cholecystectomy. Normal spleen. Normal pancreas. Normal bilateral adrenal glands. Stable 1.6 cm cyst in the midportion of the right kidney. Normal left kidney. Normal visualized stomach. Normal small intestine. Normal colon. The patient is status post appendectomy. Normal abdominal aorta. Normal inferior vena cava. Normal retroperitoneum. Mild degree of increased markings in the anterior aspect of the peritoneal fat deep to the surgical region. Normal urinary bladder. No evidence of a bilateral tubal ligation. The patient is status post ventral hernia repair with a mesh. Increased markings are seen in the subcutaneous tissues at the operative site in keeping with postoperative change. There is evidence of a 4 cm x 6.4 cm x 6.8 cm well-defined fluid collection in the deep subcutaneous tissue in the right paraumbilical region. This abuts the deep muscular layer. A small amount of the air bubbles are seen within the deep layer of the subcutaneous tissues in keeping with the recent postoperative change. Findings suggestive small bone island at the level of the T9 vertebrae. CT/Abdomen/Pelvis without Cont IMPRESSION: Postoperative changes in the deep subcutaneous tissues in the region of the ventral hernia repair with a mesh. Well-circumscribed 4 cm x 6.4 cm x 6.8 cm fluid collection with tiny air bubbles in the right para umbilical region. This most likely represents a postoperative seroma or hematoma. There is no evidence of a herniation at this time. Hepatomegaly. Diffuse fatty infiltration of the liver. Electronically Signed: Sacha Roca, at 8:25 EDT , Service support ,
--- NOTE | 2020-03-17 07:49 | ED.VIS.GEN ---
History of Present Illness Chief Complaint: Abd Pain Narrative: Patient had surgery 7 days ago at an outside hospital for hernia repair, she ran out of her medications for pain and she is in quite a bit of pain. She has no fever chills her pain at baseline is no worse but she does not have any pain medications left. She denies dysuria, flank pain she denies chest pain or shortness of breath. She denies any fever or chills. Past Medical History - Allergies and Home Meds Allergies/Adverse Reactions: Allergies ketorolac tromethamine [From Toradol] Allergy (Verified 03/17/20 07:40) Shortness of breath ondansetron HCl [From Zofran] Allergy (Verified 03/17/20 07:40) Shortness of breath Primary Care Physician: Jose Barron MD [Primary Care Provider] - Past Medical History: - - Multiple prior abdominal surgeries otherwise no medical problems. Surgical History: appendectomy, cholecystectomy, herniorrhaphy - x6. Patient reported that a mass was removed in her left lower quadrant. She reported that after she had an infection at the site where the mass was removed for which reason she had another surgery and then a wound VAC was placed., - - 3- sections, ventral and incisional hernia repairs with mesh x 6, cholecystectomy, appendectomy, tonsillectomy, recent exploratory laparotomy with lysis of adhesions and possible mesh removal. Smoking Status: Former smoker - Family History Maternal Family History: Reports: Diabetes, Heart Disease, Hypertension, Stroke Paternal Family History: Reports: Cancer - Colon, Diabetes, Heart Disease, Hypertension Review of Systems All systems negative except as indicated General: Denies: Fever ENT: Reports: - - She did say that she chipped to upper teeth just last night Cardiovascular: Denies: Chest pain Respiratory: Denies: Dyspnea, Cough Gastrointestinal: Reports: Abdominal pain, Nausea. Denies: Vomiting, Diarrhea, Constipation Musculoskeletal: Denies: Myalgias, Back pain Skin: Denies: Rash Neurological: Denies: Headache, Weakness Hematologic: Denies: Easy bruising Physical Exam Vital Signs/Narrative: Vital Signs Temp Pulse Resp BP Pulse Ox 03/17/20 07:37 97.6 F L 91 20 H 148/99 H 97 General: Well nourished, Obese, Acute Distress Head: Normocephalic Eyes: Perrl ENT: - - The right upper frontal and first incisor have decay both having an avulsion. There is no periapical abscess Cardiovascular: Regular rate, Regular rhythm Respiratory: No distress, CTA bilaterally Abdomen: Soft, - - There is tenderness throughout the abdomen but there is no guarding or rebound, the incisional scars are clean dry and intact without any evidence of infection. Back: Nontender. Negative for: CVA tenderness Extremities: Nontender, No edema Skin: Normal color Neurological: Alert, Normal Strength, Normal Sensation Psychological: - - She appears anxious Diagnostic/Tx/Re-eval - Medical Decision Making Patient has a slightly elevated white count however it is marginal and may be secondary to pain response stress response and recent surgery. She is afebrile and has an unremarkable CAT scan except for hematoma versus seroma. I discussed the patient with her surgeon, I had a long discussion with her, she told me that the patient has had what she thinks is adequate analgesia postop but she cannot manage her pain very well, she apparently was referred to pain management. Because she is only 7 days post surgery I will give her a small amount of analgesia for home as well as antiemetics. She understands that if she has fever chills or worsening symptoms she needs to return right away. ED Disposition - Plan for ED Patient: Disposition: Home or Assisted Living Diagnosis: Abdominal pain, Post-op pain Instructions: ED Acute Pain [facility] Prescriptions: Oxycodone HCl/Acetaminophen [Percocet 5/325] 1 tablet PO Q6H PRN PRN 3 Days #12 tablet PRN Reason: Pain Transmission Status: Received by [facility] Ondansetron [Zofran Odt] 4 mg PO Q8H PRN PRN #10 tab PRN Reason: Nausea Transmission Status: Pending to [facility] Referrals: Jose Barron MD [Primary Care Provider] - 3-5 Days
[2020-03-17] MEDS: 0.9% Normal Saline 1,000 ML 1000 ML IV (07:53)
[2020-03-17] MEDS: HYDROmorphone 1 MG/ML Syringe IV ×2 (07:54→09:09)
[2020-03-17] MEDS: proMETHazine 25 MG/ML Syringe 6.25 MG IV (07:54)
[2020-03-17 07:56] LABS: Absolute Lymphocyte Count 2.63 X10^3/uL (0.83-4.51); Absolute Neutrophil Count 7.6 X10^3/uL (2.0-7.7); Basophil# 0.04 X10^3/uL; Basophil% 0.3 % (0-1); Eosinophil# 0.59 X10^3/uL; Eosinophils% 5.1 % (0-5); Hematocrit 40.7 % (37-47); Hemoglobin 13.3 g/dL (12.0-15.0); Lymphocyte # 2.63 X10^3/ul (4.0); Lymphocyte % 22.6 % (19-41); Mean Corp Hgb Conc 32.7 g/dL (32-36); Mean Corpuscular Hgb 30.4 pg (27.0-32.0); Mean Corpuscular Volume 92.9 fL (81-99); Mean Platelet Vol. 9.1 fl (6.2-12.0); Monocyte# 0.57 X10^3/uL; Monocyte% 4.9 % (0-10); NRBC Flagged by Analyzer 0 % (0-5); Neutrophil % 65.2 % (47-70); Platelet Count 324 K/mm3 (150-450); RBC Distribution Width CV 12.5 % (11.6-14.6); RBC Distribution Width SD 42.6 fl (35.1-43.9); Red Blood Count 4.38 M/mm3 (4.2-5.4); White Blood Count 11.7 K/mm3 (4.4-11.0)
[2020-03-17 07:58] VITALS: BP 148/99; PULSE 91; RESP 20; TEMP 36.4; O2SAT 97
[2020-03-17 09:11] VITALS: BP 145/80; PULSE 76; RESP 18; O2SAT 97
[2020-03-17 09:15] LABS: ALB/GLOB Ratio 0.8 RATIO (0.9-2.4); AST(SGOT) 7 U/L (15-37); Alanine Aminotransfer ALT/SGPT 15 U/L (13-56); Albumin, Serum 2.7 g/dL (3.2-5.0); Alkaline Phosphatase 44 U/L (45-117); Anion Gap 8 (5-15); BUN 7 mg/dL (7-18); BUN/Creat Ratio 15.8 RATIO (10-20); Calcium,Total 7.8 mg/dL (8.5-10.1); Chloride 110 mmol/L (98-107); Creatinine, Serum 0.44 mg/dL (0.55-1.02); EST Glomerular Filtration Rate 172 mL/min (>60); Est Glom Filt Rate - Afr Amer 208 mL/min (>60); Estimated Creatinine Clearance 162.11 ml/min; Globulin 3.3 g/dL (2.2-4.2); Glucose 108 mg/dL (74-106); Lipase 61 U/L (73-393); Potassium 3.7 mmol/L (3.5-5.1); Sodium Level 141 mmol/L (136-145)
[2020-03-17 09:51] VITALS: BP 159/79; PULSE 78; RESP 18
== END 2020-03-17 09:52 | disposition home or self-care (01) ==
PROVIDERS: Emergency Provider Emergency Medicine; PCP Family Medicine
DX: G89.18 Other acute postprocedural pain (principal); R10.84 Generalized abdominal pain; Z87.891 Personal history of nicotine dependence; E66.9 Obesity, unspecified
CPT/HCPCS: 36415; 74176; 80053; 83690; 85025; 96361; 96374; 96375; 96376; 99284; J7030; A4216

== ENCOUNTER 2020-04-01 12:40 | Emergency (ER) | payer MEDICAID, SELFPAY ==
[2020-04-01 12:41] VITALS: BP 149/95; PULSE 85; RESP 24; TEMP 36.6; O2SAT 96; BMI 50.3
--- NOTE | 2020-04-01 13:29 | ED.VISSUMM ---
- ER Visit Summary Date of Service: 04/01/20 Chief Complaint: Abdominal pain History of Present Illness: The patient is a 34 F who presents with abdominal pain that is been getting progressively worse over the past week. Patient states she had a recent herniorrhaphy performed at [facility]. Patient states she went back to [facility] this week and had a CT scan which showed a developing infection. Patient states she was started on antibiotics at that time. Patient states that over the past couple days she has been unable to keep down her antibiotics and pain medications. Patient states she called her surgeon today who told her to call EMS and come to the emergency department. EMS brought the patient to the emergency department here today as it would be too far to transport her to [place]. Physical Examination: Vital signs are stable except for slightly elevated blood pressure of 149/95 and a mild tachypnea of 24. Patient is afebrile. Patient is in no acute distress. Oral mucosa is pink and moist. Neck is supple. Trachea is midline. There is no JVD. Heart was regular rate and rhythm. Lungs are clear and equal bilaterally. Abdomen is soft. Bowel sounds are normal. There is right upper and right lower quadrant tenderness. There is no rebound or guarding noted. Extremities are intact. There is no calf tenderness or edema. Cranial nerves II through XII are intact. There are no focal motor or sensory deficits. Test Results: CBC, comprehensive metabolic profile, lipase, and urinalysis were obtained were all within normal limits. I reviewed her records from [place] which included a CT scan and lab work which were all normal. There is no abscess formation. Emergency Department Course and Treatment: Patient was given IV fluids, morphine, Benadryl and Reglan here. Patient was advised of her findings. Patient was instructed to start with small sips of liquids and advance her diet as tolerated. Patient was given a prescription for Phenergan suppositories. Patient was instructed to follow-up with her surgeon in 3 to 5 days. Patient understood and was agreeable with the plan. All questions were answered. Disposition: Discharge home Impression: Postoperative abdominal pain This note was generated with [employer] dictation software. It may contain incorrect words, spelling, and punctuation that were not noted in review of the chart prior to signing ED Disposition - Plan for ED Patient: Disposition: Home or Assisted Living Diagnosis: Postoperative lower abdominal pain, Morbid obesity Instructions: ED Abdominal Pain Unkn Cause Fem Prescriptions: proMETHazine suppository [Phenergan Suppository] 25 mg RECTAL Q6H PRN PRN #8 suppos. PRN Reason: Nausea Prescription Printed Referrals: Jose Barron MD [Primary Care Provider] - 3-5 Days
[2020-04-01] MEDS: DiphenhydrAMINE 50 MG/ML Syringe 25 MG IV (13:41)
[2020-04-01] MEDS: Metoclopramide 10 MG/2 ML Vial IV (13:41)
[2020-04-01] MEDS: Morphine 4 MG/ML Syringe IV ×2 (13:41→15:03)
[2020-04-01] MEDS: 0.9% Normal Saline 1,000 ML 1000 ML IV (13:42)
[2020-04-01 13:57] VITALS: BP 132/99; PULSE 82; RESP 18; O2SAT 94
[2020-04-01 14:11] LABS: Absolute Lymphocyte Count 2.32 X10^3/uL (0.83-4.51); Absolute Neutrophil Count 7.4 X10^3/uL (2.0-7.7); Basophil# 0.04 X10^3/uL; Basophil% 0.4 % (0-1); Eosinophil# 0.33 X10^3/uL; Hematocrit 41.3 % (37-47); Hemoglobin 13.6 g/dL (12.0-15.0); Lymphocyte # 2.32 X10^3/ul (4.0); Lymphocyte % 21.3 % (19-41); Mean Corp Hgb Conc 32.9 g/dL (32-36); Mean Corpuscular Hgb 30.7 pg (27.0-32.0); Mean Corpuscular Volume 93.2 fL (81-99); Mean Platelet Vol. 9.3 fl (6.2-12.0); Monocyte% 6.4 % (0-10); NRBC Flagged by Analyzer 0 % (0-5); Neutrophil # 7.42 X10^3/uL (2.7-7.7); Neutrophil % 68.3 % (47-70); Platelet Count 299 K/mm3 (150-450); RBC Distribution Width CV 12.3 % (11.6-14.6); RBC Distribution Width SD 42.3 fl (35.1-43.9); Red Blood Count 4.43 M/mm3 (4.2-5.4); White Blood Count 10.9 K/mm3 (4.4-11.0)
[2020-04-01 14:19] LABS: ALB/GLOB Ratio 0.9 RATIO (0.9-2.4); AST(SGOT) 6 U/L (15-37); Alanine Aminotransfer ALT/SGPT 19 U/L (13-56); Albumin, Serum 3.5 g/dL (3.2-5.0); Alkaline Phosphatase 60 U/L (45-117); Anion Gap 9 (5-15); BUN 6 mg/dL (7-18); BUN/Creat Ratio 11.6 RATIO (10-20); Calcium,Total 9.1 mg/dL (8.5-10.1); Chloride 105 mmol/L (98-107); Creatinine, Serum 0.52 mg/dL (0.55-1.02); EST Glomerular Filtration Rate 144 mL/min (>60); Est Glom Filt Rate - Afr Amer 174 mL/min (>60); Estimated Creatinine Clearance 137.17 ml/min; Globulin 3.8 g/dL (2.2-4.2); Glucose 97 mg/dL (74-106); Lipase 54 U/L (73-393); Potassium 3.8 mmol/L (3.5-5.1); Protein, Total 7.3 g/dL (6.4-8.2); Sodium Level 138 mmol/L (136-145)
[2020-04-01 14:24] LABS: Lactic Acid 1.5 mmol/L (0.4-1.9)
[2020-04-01 14:51] VITALS: BP 111/75; PULSE 88; RESP 16; TEMP 36.6; O2SAT 95
[2020-04-01 14:52] LABS: Mucous, Urine 0 SEEN /hpf (<or=2+); Red Blood Cells-Urine 0 SEEN /hpf (0-5); White Blood Cells 0 SEEN /hpf (0-5)
[2020-04-01 14:54] LABS: Color, Urine Straw (Yellow); Glucose, Dipstick Normal (Normal); Ketone-Dipstick Negative (Negative); Leukocyte Esterase-Dipstick Negative /ul (Negative); Nitrite-Dipstick Negative (Negative); Occult Blood-Urine Negative /ul (Negative); Protein-Dipstick Negative (Negative); Urine Bilirubin Dipstick Negative (Negative); Urine Clarity Clear (Clear); Urine Urobilinogen Normal (Normal)
[2020-04-01 15:09] LABS: Squamous Epithelial Cells - UA 5-10 SEEN /hpf (5-10)
[2020-04-01 15:10] LABS: Bacteria RARE /hpf (None Seen); Yeast-Urine RARE /hpf (None Seen)
[2020-04-01 15:59] VITALS: BP 122/78
== END 2020-04-01 15:59 | disposition home or self-care (01) ==
PROVIDERS: Emergency Provider Emergency Medicine; PCP Family Medicine
DX: G89.18 Other acute postprocedural pain (principal); R10.11 Right upper quadrant pain; R10.31 Right lower quadrant pain; E66.9 Obesity, unspecified; F41.9 Anxiety disorder, unspecified; Z79.899 Other long term (current) drug therapy
CPT/HCPCS: 80053; 81001; 83605; 83690; 85025; 96361; 96374; 96375; 96376; 99285; J7030; A4216

== ENCOUNTER 2020-05-06 19:12 | Emergency (ER) | payer MEDICAID, SELFPAY ==
[2020-05-06 19:13] VITALS: BP 142/83; PULSE 79; RESP 20; TEMP 36.7; O2SAT 97; BMI 49.6
--- NOTE | 2020-05-06 19:21 | ED.DCSUM_ITS ---
History of Present Illness Chief Complaint: Upper Extremity Injury Informant: Patient Onset: Days Context: Sudden Onset Timing: Continuous Quality: Pain over the proximal phalanx and MCP joint left thumb Location: Thumb Current Severity: Mild Maximum Severity: Moderate Worsened by: Movement, touch Relieved by: Rest Associated Symptoms: No neurovascular symptoms Narrative: 34-year-old casy-putb-entuoait woman who presents with injury to her left thumb. This occurred after she fell walking the dog 2 days ago. She states she put her hand out and stoved her thumb. She localizes the pain over the ulnar collateral ligament of the left thumb. She denies paresthesia, anesthesia or motor weakness. She denies prior injury. Prior similar symptoms: No Recent Illness/Hospitalization: No - Past Medical History (1) Elevated BP without diagnosis of hypertension Status: Acute (2) Intractable abdominal pain Status: Acute (3) Anxiety and depression Status: Chronic (4) GERD (gastroesophageal reflux disease) Status: Chronic (5) Morbid obesity Status: Chronic (6) JAGJIT (obstructive sleep apnea) Status: Chronic (7) Partial small bowel obstruction Status: Resolved (8) Recurrent ventral hernia with incarceration Status: Resolved Past Medical History - Allergies and Home Meds Allergies/Adverse Reactions: Allergies ketorolac tromethamine [From Toradol] Allergy (Verified 04/01/20 12:44) Shortness of breath ondansetron HCl [From Zofran] Allergy (Verified 04/01/20 12:44) Shortness of breath Primary Care Physician: Jose Barron MD [Primary Care Provider] - Surgical History: appendectomy, cholecystectomy, herniorrhaphy - x6. Patient reported that a mass was removed in her left lower quadrant. She reported that after she had an infection at the site where the mass was removed for which reason she had another surgery and then a wound VAC was placed., - - 3- sections, ventral and incisional hernia repairs with mesh x 6, cholecystectomy, appendectomy, tonsillectomy, recent exploratory laparotomy with lysis of adhesions and possible mesh removal. Lives: Spouse/ Significant Other Smoking Status: Former smoker Alcohol: Rare Drugs: None - Family History Maternal Family History: Reports: Diabetes, Heart Disease, Hypertension, Stroke Paternal Family History: Reports: Cancer - Colon, Diabetes, Heart Disease, Hypertension Review of Systems Musculoskeletal: Reports: Swelling, Extremity Pain. Denies: Myalgias, Arthralgias, Neck pain, Back pain Skin: Denies: Rash, Wounds Neurological: Denies: Weakness, Parasthesia, Numbness Hematologic: Denies: Easy bruising, Easy bleeding Allergy: Denies: Uticaria Physical Exam Vital Signs/Narrative: Vital Signs Temp Pulse Resp BP Pulse Ox 05/06/20 19:13 98.1 F 79 20 H 142/83 H 97 Inital Vital Signs reviewed: Yes General: Well nourished, Well developed, Obese, No Acute Distress Eyes: Perrl, EOMI Cardiovascular: Regular rate, Regular rhythm Respiratory: No distress Extremities: No edema, Tenderness - There is pain outpatient over the MCP joint of the left thumb and point tenderness over the ulnar collateral ligament. There is increased pain with stressing of the ulnar collateral groove. There is no laxity. There is slight discoloration noted. Cap refill is normal. Two- point scrimmage is intact. There is no subungual hematoma. She has limited range of motion due to pain. Median, radial and ulnar function intact.. Negative for: Nontender Neurological: Alert, Oriented x3, Cranial nerves II-XII grossly intact, Normal Strength, Normal Sensation Psychological: Normal affect Diagnostic/Tx/Re-eval Chest X-Ray - ED: 2 View, - - Views of the left thumb were obtained interpreted by me as negative. There is no fracture, subluxation or dislocation. 05/06/20 19:32 Finger(s) Min 2 Views [RAD] Stat - Medical Decision Making X-ray of the left thumb was obtained to evaluate for fracture versus strain. Since there is point tenderness over the ulnar collateral ligament pain with stressing of the anticoagulant will place in a thumb spica splint ED Disposition - Plan for ED Patient: Disposition: Home or Assisted Living Diagnosis: Ulnar collateral ligament sprain Instructions: ED Sprain Finger Referrals: Jose Barron MD [Primary Care Provider] - 1 Week if not improving
--- NOTE | 2020-05-06 19:32 | RAD_ITS ---
STUDY: X-RAY - LEFT HAND, ATTENTION FIRST FINGER REASON FOR EXAM: Female, 34 years old. LEFT THUMB PAIN AFTER FALLING WHILE WALKING DOG 2 DAYS AGO TECHNIQUE: 3 view(s) of the finger were obtained. COMPARISON: December 04, 2011 FINDINGS: Normal metacarpal head. Normal metacarpophalangeal joint. There is subtle focal increased density on the ulnar aspect at the first MCP joint, only seen on the frontal projection, suggesting acute avulsion fracture. Normal distal phalanx. Normal interphalangeal joint. RAD/Finger(s) Min 2 Views IMPRESSION: Small avulsion is suggested at the first MCP joint. Electronically Signed: Mehrdad Sher MD at 20:03 EDT , Service support ,
== END 2020-05-06 20:06 | disposition home or self-care (01) ==
PROVIDERS: Emergency Provider Emergency Medicine; PCP Family Medicine
DX: S53.442A Ulnar collateral ligament sprain of left elbow, initial encounter (principal); W18.30XA Fall on same level, unspecified, initial encounter; Y93.K1 Activity, walking an animal; Y92.89 Other specified places as the place of occurrence of the external cause; Y99.8 Other external cause status; K21.9 Gastro-esophageal reflux disease without esophagitis; E66.01 Morbid (severe) obesity due to excess calories; Z87.891 Personal history of nicotine dependence
CPT/HCPCS: 73140; 99283

== ENCOUNTER 2020-07-09 09:35 | Emergency (ER) | payer MEDICAID, SELFPAY ==
[2020-07-09 09:36] VITALS: BP 143/87; PULSE 92; RESP 19; TEMP 36.2; O2SAT 98; BMI 49.6
--- NOTE | 2020-07-09 09:59 | EKG12_ITS ---
Test Reason : TACH Blood Pressure : / mmHG Vent. Rate : 081 BPM Atrial Rate : 081 BPM P-R Int : 152 ms QRS Dur : 090 ms QT Int : 390 ms P-R-T Axes : 000 065 011 degrees QTc Int : 453 ms Normal sinus rhythm Normal ECG Confirmed by PATRICK DODD, JASKARAN ([id number]), city editor CHANTELL COWAN ([id number]) on 07/14/2020 2:15:23 PM Referred By: Confirmed By:JASKARAN NGUYEN MD
--- NOTE | 2020-07-09 10:04 | ED.VIS.GEN ---
History of Present Illness Chief Complaint: Syncope Informant: Patient Onset: Today Context: Sudden Onset Timing: Intermittent Quality: Passed out after brushing teeth Location: Residence Current Severity: Mild Maximum Severity: Severe Worsened by: Nothing Relieved by: Nothing Associated Symptoms: Anxiousness, tingling Narrative: Patient is a 35-year-old woman who presents after syncopal episode. She was brushing her teeth. She states she turned to walk out and her sister found her on the floor. There was no incontinence of urine or stool. She denies headache. Denies biting her tongue. She does report perioral numbness, numbness of her extremities. She does have history of anxiety reaction and stated I feel panicky . She denies chest discomfort. She does report mild shortness of breath. She denies nausea, vomiting diarrhea. She does have increased size in her seroma due to ventral hernia repair performed at outside facility. She states the seroma has not grown in size since the fall. She denies fever, chills night sweats. She denies blood in her urine. Prior similar symptoms: No Recent Illness/Hospitalization: No - Past Medical History (1) GERD (gastroesophageal reflux disease) Status: Chronic (2) History of anxiety disorder Status: Chronic (3) Morbid obesity Status: Chronic (4) JAGJIT (obstructive sleep apnea) Status: Chronic (5) Partial small bowel obstruction Status: Resolved (6) Recurrent ventral hernia with incarceration Status: Resolved Past Medical History - Allergies and Home Meds Allergies/Adverse Reactions: Allergies ketorolac tromethamine [From Toradol] Allergy (Verified 07/09/20 09:38) Shortness of breath ondansetron HCl [From Zofran] Allergy (Verified 07/09/20 09:38) Shortness of breath Primary Care Physician: Jose Barron MD [Primary Care Provider] - Prior records reviewed: Yes Surgical History: appendectomy, cholecystectomy, herniorrhaphy - x6. Patient reported that a mass was removed in her left lower quadrant. She reported that after she had an infection at the site where the mass was removed for which reason she had another surgery and then a wound VAC was placed., - - 3- sections, ventral and incisional hernia repairs with mesh x 6, cholecystectomy, appendectomy, tonsillectomy, recent exploratory laparotomy with lysis of adhesions and possible mesh removal. Smoking Status: Former smoker - Family History Maternal Family History: Reports: Diabetes, Heart Disease, Hypertension, Stroke Paternal Family History: Reports: Cancer - Colon, Diabetes, Heart Disease, Hypertension Review of Systems General: Denies: Chills, Fever, Malaise, Sweats Eyes: Denies: Visual changes - bilaterally, Blurred Vision - bilaterally, Diplopia ENT: Denies: Bilateral ear pain, Rhinorrhea, Sore throat Cardiovascular: Reports: Heart racing. Denies: Chest pain, Palpitations Respiratory: Reports: Dyspnea. Denies: Cough, Sputum, Dyspnea on exertion Gastrointestinal: Reports: Abdominal pain. Denies: Nausea, Vomiting, Diarrhea, Constipation, Melena, Hematochezia, -, - Genitourinary: Denies: Dysuria, Hematuria, Frequency Musculoskeletal: Denies: Back pain, Extremity Pain Skin: Denies: Rash, Wounds Neurological: Denies: Headache, Weakness, Numbness Psych: Reports: Anxiety Hematologic: Denies: Easy bruising, Easy bleeding Allergy: Denies: Uticaria Physical Exam Vital Signs/Narrative: Vital Signs Temp Pulse Resp BP Pulse Ox 07/09/20 09:36 97.2 F L 92 19 H 143/87 H 98 Inital Vital Signs reviewed: Yes General: Well nourished, Well developed, Obese, - - Patient is hyperventilating. There is carpopedal spasm. She has bilateral Chv[place]ek sign. Head: Normocephalic, Atraumatic Eyes: Perrl, EOMI. Negative for: Pale conjunctiva, Scleral icterus ENT: Moist mucous membranes, No rhinorrhea Neck: Supple, Nontender, No lymphadenopathy, No JVD Cardiovascular: Regular rate, Regular rhythm, No murmurs, Normal S1, Normal S2 Respiratory: No distress, CTA bilaterally, Chest nontender Abdomen: Soft, Nontender, Nondistended, Normal bowel sounds, No masses Rectal: Deferred Back: Nontender, Normal Inspection Extremities: Nontender, No edema. Negative for: Calf Tenderness Skin: Normal color, No rash, No Trauma. Negative for: Cyanosis, Diaphoresis, Jaundice Neurological: Alert, Oriented x3, Cranial nerves II-XII grossly intact, Normal Strength, Normal Sensation. Negative for: Normal DTR - Patient is hyperreflexic with clonus at the ankles, 10 beats Psychological: - - Patient appears anxious. Diagnostic/Tx/Re-eval Laboratory Results 07/09/20 07/09/20 09:52 09:52 Sodium 138 Potassium 3.8 Chloride 107 Carbon Dioxide 22.0 Anion Gap 9 BUN 11 Creatinine 0.62 Estim Creat Clear Calc 113.96 Est GFR (MDRD) Af Amer 140 Est GFR (MDRD) Non-Af 116 BUN/Creatinine Ratio 17.7 Glucose 109 H Calcium 9.0 Total Bilirubin 0.30 AST 11 L ALT 25 Alkaline Phosphatase 58 Total Protein 7.3 Albumin 3.9 Globulin 3.4 Albumin/Globulin Ratio 1.1 Serum , Qual NEGATIVE Laboratory results are unremarkable. Serum test unremarkable. Patient's history, physical findings are consistent with hyperventilation syndrome. This could be the cause of her syncope. Plan is to discharge to home to follow-up with PCP. She is on anti-ankylotic and medication to treat her anxiety disorder. - Medical Decision Making Patient is presently hyperventilating. Need to determine etiology i.e. renal disease, pulmonary disease versus anxiety. Baseline blood work was ordered. ED Disposition - Plan for ED Patient: Disposition: Home or Assisted Living Diagnosis: Syncope and collapse, Acute hyperventilation syndrome, Anxiety reaction Instructions: ED Hyperventilation Syndrome Referrals: Jose Barron MD [Primary Care Provider] - 3-5 Days if not improving
[2020-07-09 10:20] LABS: Internal QC Validated? YES +Cl - CLEAR BKGD; Pregnancy, Serum, hCG Quali. NEGATIVE Negative
[2020-07-09 10:32] LABS: ALB/GLOB Ratio 1.1 RATIO (0.9-2.4); AST(SGOT) 11 U/L (15-37); Alanine Aminotransfer ALT/SGPT 25 U/L (13-56); Albumin, Serum 3.9 g/dL (3.2-5.0); Alkaline Phosphatase 58 U/L (45-117); Anion Gap 9 (5-15); BUN 11 mg/dL (7-18); BUN/Creat Ratio 17.7 RATIO (10-20); Chloride 107 mmol/L (98-107); Creatinine, Serum 0.62 mg/dL (0.55-1.02); EST Glomerular Filtration Rate 116 mL/min (>60); Est Glom Filt Rate - Afr Amer 140 mL/min (>60); Estimated Creatinine Clearance 113.96 ml/min; Globulin 3.4 g/dL (2.2-4.2); Glucose 109 mg/dL (74-106); Potassium 3.8 mmol/L (3.5-5.1); Protein, Total 7.3 g/dL (6.4-8.2); Sodium Level 138 mmol/L (136-145)
[2020-07-09 11:10] VITALS: BP 131/81; PULSE 83; RESP 16; O2SAT 98
--- NOTE | 2020-09-06 18:47 | CM.ED ---
Social Work ED Care Plan approved. Telephone call to patient. No answer. Voicemail left requesting return phone call. ED Care Plan and resources mailed to patient. Aniya KERNS, KATHRINS
--- NOTE | 2020-09-11 11:36 | CM.ED ---
Social Work Voicemail reviewed from patient requesting return phone call in regards to ED Care Plan. Telephone call to patient. no answer. voicemail left. Aniya KERNS, KATHRINS
--- NOTE | 2020-09-11 12:19 | CM.ED ---
Social Work Telephone call from patient. Patient inquiring about ED Care Plan. Patient reports to have been declined by pain management as it was determined that patient abdominal patient is too close to pos-op and not chronic. Patient reports that current plan is to work on loosing weight to be able to have another surgery in a few months. Patient reports to have had multiple abdominal surgeries and this is the result of patient ED visits. Patient reports concern for being titled pain seeking. This health and social care teacher clarifying reason for ED Care Plan with patient. Patient voices understanding to need to continue to come to the ED for emergencies and to follow up with surgeon for concerns after surgeries. Patient did thank this health and social care teacher for time and attention. Aniya Guzman MSW, KATHI.
== END 2020-07-09 11:11 | disposition home or self-care (01) ==
PROVIDERS: Emergency Provider Emergency Medicine; PCP Family Medicine
DX: R55 Syncope and collapse (principal); F41.1 Generalized anxiety disorder; F45.8 Other somatoform disorders; K21.9 Gastro-esophageal reflux disease without esophagitis; E66.01 Morbid (severe) obesity due to excess calories; Z87.891 Personal history of nicotine dependence
CPT/HCPCS: 80048; 80053; 84703; 93005; 99284; A4216

== ENCOUNTER → 2020-08-07 | Outpatient (CLI) | payer MEDICAID, SELFPAY ==
[2020-07-09 09:36] VITALS: BMI 49.6
== END | disposition home or self-care (01) ==
LOC: MTDU 10:34
PROVIDERS: PCP Family Medicine; Referring Provider Family Medicine; Visit Provider Family Medicine
DX: Z20.828 Contact with and (suspected) exposure to other viral communicable diseases (principal)
CPT/HCPCS: 87635; C9803; U0003

== ENCOUNTER 2021-09-14 22:47 | Emergency (ER) | payer MEDICAID, SELFPAY ==
[2021-09-14 22:47] VITALS: BP 212/100; PULSE 101; RESP 18; TEMP 36.4; O2SAT 96; BMI 48.1
--- NOTE | 2021-09-15 00:26 | CT_ITS ---
EXAM: CT ABDOMEN AND PELVIS WITH INTRAVENOUS CONTRAST CLINICAL INDICATION: hernia and pain -- IV PO Contrast hernia and pain -- IV PO Contrast TECHNIQUE: Helically acquired images were obtained of the abdomen and pelvis with intravenous contrast. This CT exam was performed using one or more of the following dose reduction techniques: automated exposure control, adjustment of the mA and/or kV according to patient size, and/or use of iterative reconstruction technique. This report was created using [employer] report generation technology. CONTRAST: Oral and amp; IV Gastrografin and amp; 100mL [id number]-370 COMPARISON: 03/17/2020 . 11/08/2019. 03/08/2007. FINDINGS: LOWER THORAX: Unremarkable. Lung bases are clear. No cardiomegaly. No significant pericardial effusion. ABDOMEN: LIVER: Liver is enlarged and there is fatty infiltration of the liver. GALLBLADDER AND BILE DUCTS: Gallbladder is surgically absent. No intra- or extrahepatic biliary ductal dilation. PANCREAS: Unremarkable. No focal cystic or solid mass. SPLEEN: The spleen is mildly enlarged. ADRENALS: Unremarkable. No nodules. KIDNEYS AND URETERS: There is a 1.5 cm nodular structure arising exophytically from the lateral lower pole of the left kidney which appears heterogeneous and probably represents a multiseptated cyst. There is no increase in size compared with the October 2019 exam. This lesion was not present on the 2006 exam.. There is a small simple appearing right renal cyst. No follow-up imaging is necessary for simple renal cysts or cysts that are too small to characterize. No hydronephrosis. STOMACH AND BOWEL: There is a large supraumbilical ventral hernia which contains multiple small bowel loops as well as transverse colon, and ascending colon, and cecum. There is no associated bowel obstruction or strangulation. There has been previous small bowel surgery. No focal inflammatory change. PELVIS: APPENDIX: The appendix is not visualized. There is no evidence for acute appendicitis. BLADDER: Unremarkable. REPRODUCTIVE: There are tubal ligation clips in place. ABDOMEN and PELVIS: INTRAPERITONEAL SPACE: Unremarkable. No ascites or other fluid collection. No free air. BONES/JOINTS: There are no visualized acute osseous abnormalities. No suspicious lytic or blastic abnormality. SOFT TISSUES: See above. VASCULATURE: Unremarkable. Abdominal aorta is non-dilated. LYMPH NODES: Unremarkable. No enlarged lymph nodes. CT/Abdomen/Pelvis WITH Contrast IMPRESSION: 1. Large supraumbilical ventral hernia contains small bowel loops as well as the right hemicolon. No associated bowel obstruction or strangulation. 2. 1.5 cm complex cyst arising from the lateral lower pole left kidney. There is no interval increase in size since the October 2019 exam, however, would still recommend MRI for further characterization.. 3. Hepatomegaly with fatty infiltration of the liver. 4. Splenomegaly. 5. Previous cholecystectomy. Previous tubal ligation. Previous small bowel surgery. Electronically Signed: Javier Sher MD at 3:53 EST , Service support ,
--- NOTE | 2021-09-15 00:28 | EDS_ITS ---
HPI HPI - GI History of Present Illness Chief Complaint: Abd Pain Informant: patient Abdominal Pain/Flank Pain Onset: Today Context: Gradual Onset Timing: Continuous Current Severity: Moderate Maximum Severity: Moderate Worsened by: Nothing Relieved by: Nothing Nausea/Vomiting/Emesis GI Symptom: Positive for Nausea and Vomiting Severity: Mild Diarrhea/Melena/Hematochezia GI Symptom: Negative for Diarrhea, Melena and Hematochezia Associated Symptoms Associated Symptoms: Negative for Dysuria, Frequency and Hematuria Narrative Narrative: 36-year-old female history of 16 prior abdominal surgeries including 11 hernia repairs, , appendectomy, cholecystectomy and the mass resection it was benign. She has a known large lower abdominal hernia. A year ago she had that repaired emergently with a took the mesh out. Since that time she has been going to both the [facility] and looking for someone that can fix this. She cannot be seen at [facility] until November. Today she has had increasing pain with associated nausea and vomiting. She is still having bowel movements. She has developed a fever of 1013. Denies any dysuria. Prior similar symptoms: Yes Recent Illness/Hospitalization: No PFSH PFS Medical History (Updated 09/15/21 @ 04:[address] Dung Shelby MD) Acute narcotic withdrawal Anxiety and depression Cellulitis, abdominal wall Elevated BP without diagnosis of hypertension GERD (gastroesophageal reflux disease) History of anxiety disorder Hypokalemia due to excessive gastrointestinal loss of potassium Intractable abdominal pain Morbid obesity Nausea vomiting and diarrhea JAGJIT (obstructive sleep apnea) Partial small bowel obstruction Postoperative lower abdominal pain Severe sepsis Sinus tachycardia by electrocardiogram Vomiting Home Medications tramadol 50 mg tablet 50 mg PO TID PRN #15 tab 06/18/21 [Rx Last Taken Unknown] Allergy/AdvReac Type Severity Reaction Status Date / Time ketorolac tromethamine Allergy Shortness Verified 09/14/21 22:50 [From Toradol] of breath ondansetron HCl [From Zofran] Allergy Shortness Verified 09/14/21 22:50 of breath Surgical History History of History of hysterectomy History of laparoscopic appendectomy History of laparoscopic cholecystectomy Hx of ventral hernia repair Recurrent ventral hernia with incarceration Social History Smoking Status: Former smoker how long ago did patient quit smokin years ROS ROS ED ROS Narrative Abdominal pain. Nausea and vomiting. Fever. Review of Systems ROS Unobtainable: Denies due to encephalopathy Constitutional Constitutional ED: Reports fever(s) ENT ENT ED: Denies ear pain Cardiovascular Cardiovascular: Denies chest pain Respiratory/Chest Respiratory/Chest: Denies cough or dyspnea Gastrointestinal Gastrointestinal: Reports abdominal pain, nausea and vomiting; Denies diarrhea Genitourinary Genitourinary ED: Denies dysuria Musculoskeletal Musculoskeletal: Denies myalgias Integumentary Denies rash Neurologic Neurologic: Denies headache(s) Psychiatric Psychiatric: Denies depression Endocrine Endocrinology: Denies polyuria Hematologic/Lymphatic Hematologic/Lymphatic: Denies easy bruising Allergic/Immunologic Allergic/Immunologic ED: Denies urticaria EXAM Physical Exam Narrative Exam Narrative: 36-year-old female vital signs are stable she is hypertensive a blood pressure 212/100. Currently afebrile 97 6. Pulse ox 96% on room air no hypoxia. HEENT exam unremarkable. Neck nontender. Lungs clear to auscultation bilaterally. Heart regular rhythm rate about 100. No murmur. Abdomen obese. Extremely large lower abdominal hernia about the size of a volleyball. Tender to palpation. Bluish discoloration. Tender to the touch. The abdomen is not rigid. The hernia appears to be reducible. It is tender to palpation. She does have bowel sounds. Moving all 4 extremities. Nontender. No edema. Back nontender. Neurologically she is awake and alert. Const Vital Signs: 09/14/21 22:47 09/15/21 00:50 09/15/21 02:43 Temperature 97.6 F L 97.9 F Temperature Source Temporal Oral Pulse Rate 101 H 77 74 Respiratory Rate 18 16 17 Blood Pressure 212/100 H 134/81 H Blood Pressure Mean 137 98 Pulse Ox 96 98 Oxygen Delivery Method Room Air Room Air 09/15/21 02:45 Temperature Temperature Source Pulse Rate Respiratory Rate Blood Pressure 140/87 H Blood Pressure Mean 104 Pulse Ox Oxygen Delivery Method Oxyhood Positive well nourished, well developed and obese; Negative for cachectic, contractures or unkempt General Appearance ED: well developed and NAD; Negative for unkempt, cachectic, contractures or pallor Nutritional Appearance: obese; Negative for cachectic HEENT Reports moist mucous membranes normocephalic and atraumatic; Negative for trauma or tenderness Eyes PERRL and EOMs intact bilaterally Neck no lymphadenopathy, supple and no JVD General: Negative for tenderness Resp normal respiratory effort and clear to auscultation bilaterally Auscultation: Negative for rales, rhonchi or wheezes Cardio regular rate, regular rhythm, S1 normal heart sound, S2 normal heart sound and no murmurs GI no masses; Negative for non-tender or non-distended Inspection: abdominal distention Auscultation: normoactive bowel sounds; Negative for hyperactive bowel sounds or hypoactive bowel sounds Palpation: soft and tender; Negative for guarding, rigid or rebound tenderness present Back/Spine no CVA tenderness General Back: Negative for CVA tenderness Extremity full ROM General Extremety ED: Negative for edema or tenderness General Extremity: Negative for edema Neuro moves all extremities Sensorium / Orientation: alert, oriented to person, oriented to place and oriented to time; Negative for confused, lethargic or stuporous Motor Exam: strength 5/5 throughout Psych mental status grossly normal Appearance: Negative for unkempt Skin no wounds General Skin Exam: Negative for jaundice or pallor Lesions: no lesions MDM MDM MDM Narrative Medical decision making narrative: 36-year-old female with a very large hernia that is tender to palpation. Rule out bowel obstruction versus incarcerated hernia versus strangulation versus pain from a chronic large hernia. Versus other etiologies. CAT scan labs are being obtained. Treated with morphine and Zofran for pain and nausea. IV fluids. Multiple repeat exams patient is doing well. Her labs are unremarkable. Her CAT scan shows no acute process. There is a very large ventral hernia but there is no strangulation or obstruction. There is no perforation. There is nothing needs to be done acutely tonight. She is outpatient follow-up with [facility]. This would be a very extensive and complex surgery that will need to be done at a tertiary center. That does not need to be addressed tonight. She also had an incidental finding of a renal cyst that will need further follow-up. All this was discussed with the patient. Should be discharged home. Lab Data Attestation: I reviewed the patient's lab results. Lab results narrative: CBC White count 6. Hemoglobin 14. Electrolytes unremarkable gap of 8 normal BUN and creatinine. Normal liver enzymes. Glucose 125. Liver tests are normal. UA negative. Contaminated with 10-20 epithelial cells 4+ bacteria no whites no 9 trite. Lactic acid 1.2. Labs: Laboratory Results - last 24 hr 09/14/21 09/14/21 09/14/21 23:35 23:35 23:39 WBC 6.8 RBC 4.75 Hgb 14.5 Hct 42.9 MCV 90.3 MCH 30.5 MCHC 33.8 RDW Std Deviation 41.6 RDW Coeff of Juan 12.6 Plt Count 224 MPV 9.3 Immature Gran % (Auto) 0.700 Neut % (Auto) 60.8 Lymph % (Auto) 29.6 [place] % (Auto) 7.6 Eos % (Auto) 1.0 Baso % (Auto) 0.3 Absolute Neuts (auto) 4.1 Absolute Lymphs (auto) 2.01 Nucleated RBC % 0 Sodium 139 Potassium 4.1 Chloride 109 H Carbon Dioxide 22.0 Anion Gap 8 BUN 8 Creatinine 0.52 L Estim Creat Clear Calc 134.58 Est GFR (MDRD) Af Amer 170 Est GFR (MDRD) Non-Af 141 BUN/Creatinine Ratio 15.3 Glucose 125 H Lactic Acid Calcium 9.1 Total Bilirubin 0.30 AST 30 ALT 26 Alkaline Phosphatase 49 Total Protein 7.1 Albumin 3.5 Globulin 3.6 Albumin/Globulin Ratio 1.0 Urine Color Yellow Urine Clarity Clear Urine pH 6.0 Ur Specific [place] 1.025 Urine Protein 30 H Urine Glucose (UA) Normal Urine Ketones 5 H Urine Occult Blood Negative Urine Nitrite Negative Urine Bilirubin Negative Urine Urobilinogen Normal Ur Leukocyte Esterase Negative Urine RBC 0 SEEN Urine WBC 0 SEEN Ur Squamous Epith Cells 10-25 SEEN Urine Bacteria 4+ Urine Mucus 0 SEEN 09/15/21 00:35 WBC RBC Hgb Hct MCV MCH MCHC RDW Std Deviation RDW Coeff of Juan Plt Count MPV Immature Gran % (Auto) Neut % (Auto) Lymph % (Auto) [place] % (Auto) Eos % (Auto) Baso % (Auto) Absolute Neuts (auto) Absolute Lymphs (auto) Nucleated RBC % Sodium Potassium Chloride Carbon Dioxide Anion Gap BUN Creatinine Estim Creat Clear Calc Est GFR (MDRD) Af Amer Est GFR (MDRD) Non-Af BUN/Creatinine Ratio Glucose Lactic Acid 1.2 Calcium Total Bilirubin AST ALT Alkaline Phosphatase Total Protein Albumin Globulin Albumin/Globulin Ratio Urine Color Urine Clarity Urine pH Ur Specific [place] Urine Protein Urine Glucose (UA) Urine Ketones Urine Occult Blood Urine Nitrite Urine Bilirubin Urine Urobilinogen Ur Leukocyte Esterase Urine RBC Urine WBC Ur Squamous Epith Cells Urine Bacteria Urine Mucus Radiography Diagnostic Testing: Clinical Impression(s) from Imaging Studies Abdomen/Pelvis CT 09/15/21 00:26 IMPRESSION: 1. Large supraumbilical ventral hernia contains small bowel loops as well as the right hemicolon. No associated bowel obstruction or strangulation. 2. 1.5 cm complex cyst arising from the lateral lower pole left kidney. There is no interval increase in size since the October 2019 exam, however, would still recommend MRI for further characterization.. 3. Hepatomegaly with fatty infiltration of the liver. 4. Splenomegaly. 5. Previous cholecystectomy. Previous tubal ligation. Previous small bowel surgery. Electronically Signed: Javier Sher MD at 3:53 EST , Service support , Discharge Plan Triage Chief Complaint: Abd Pain ED Provider: Dung Shelby Dx/Rx/DC Orders Clinical Impression: Abdominal pain, Ventral hernia Instructions: Abdominal Pain Prescriptions: No Action tramadol 50 mg tablet 50 mg PO TID PRN (Reason: pain) Qty: 15 RF: 0 Primary Care Provider: Jose Barron Referrals: Jose Barron MD [Primary Care Provider] - As Needed Activity Restrictions/Additional Instructions: Your labs are unremarkable. The CAT scan showed large hernia but no signs of obstruction, perforation or strangulation. They saw an incidental finding of a cyst on your left kidney that will need follow-up evaluation in the future. You can follow-up with your primary care physician for that. Follow-up with your appointment with the physicians and specialize in hernia repair to determine when and how they are going to surgically repair this. Disposition Disposition: Home, Self Care
[2021-09-15 00:36] LABS: Absolute Lymphocyte Count 2.01 X10^3/uL (0.83-4.51); Absolute Neutrophil Count 4.1 X10^3/uL (2.0-7.7); Basophil# 0.02 X10^3/uL; Basophil% 0.3 % (0-1); Eosinophil# 0.07 X10^3/uL; Hematocrit 42.9 % (37-47); Hemoglobin 14.5 g/dL (12.0-15.0); Lymphocyte # 2.01 X10^3/ul (0.83-4.51); Lymphocyte % 29.6 % (19-41); Mean Corp Hgb Conc 33.8 g/dL (32-36); Mean Corpuscular Hgb 30.5 pg (27.0-32.0); Mean Corpuscular Volume 90.3 fL (81-99); Mean Platelet Vol. 9.3 fl (6.2-12.0); Monocyte# 0.52 X10^3/uL; Monocyte% 7.6 % (0-10); NRBC Flagged by Analyzer 0 % (0-5); Neutrophil # 4.13 X10^3/uL (2.7-7.7); Neutrophil % 60.8 % (47-70); Platelet Count 224 K/mm3 (150-450); RBC Distribution Width CV 12.6 % (11.6-14.6); RBC Distribution Width SD 41.6 fl (35.1-43.9); Red Blood Count 4.75 M/mm3 (4.2-5.4); White Blood Count 6.8 K/mm3 (4.4-11.0)
[2021-09-15] MEDS: morphine 8 MG/ML Syringe IV (00:44)
[2021-09-15] MEDS: proMETHazine 25 MG/ML Syringe 12.5 MG IM (00:44)
[2021-09-15 00:50] VITALS: BP 134/81; PULSE 77; RESP 16; TEMP 36.6; O2SAT 98
[2021-09-15 00:50] LABS: AST(SGOT) 30 U/L (15-37); Alanine Aminotransfer ALT/SGPT 26 U/L (13-56); Albumin, Serum 3.5 g/dL (3.2-5.0); Alkaline Phosphatase 49 U/L (45-117); Anion Gap 8 (5-15); BUN 8 mg/dL (7-18); BUN/Creat Ratio 15.3 RATIO (10-20); Calcium,Total 9.1 mg/dL (8.5-10.1); Chloride 109 mmol/L (98-107); Creatinine, Serum 0.52 mg/dL (0.55-1.02); EST Glomerular Filtration Rate 141 mL/min (>60); Est Glom Filt Rate - Afr Amer 170 mL/min (>60); Estimated Creatinine Clearance 134.58 ml/min; Globulin 3.6 g/dL (2.2-4.2); Glucose 125 mg/dL (74-106); Potassium 4.1 mmol/L (3.5-5.1); Protein, Total 7.1 g/dL (6.4-8.2); Sodium Level 139 mmol/L (136-145)
[2021-09-15 00:54] LABS: Mucous, Urine 0 SEEN /hpf (<or=2+); Red Blood Cells-Urine 0 SEEN /hpf (0-5); White Blood Cells 0 SEEN /hpf (0-5)
[2021-09-15 00:59] LABS: Color, Urine Yellow (Yellow); Glucose, Dipstick Normal (Normal); Ketone-Dipstick 5 mg/dl (Negative); Leukocyte Esterase-Dipstick Negative /ul (Negative); Nitrite-Dipstick Negative (Negative); Occult Blood-Urine Negative /ul (Negative); Protein-Dipstick 30 mg/dl (Negative); Specific Gravity, Urine 1.025 (1.002-1.030); Urine Bilirubin Dipstick Negative (Negative); Urine Clarity Clear (Clear); Urine Urobilinogen Normal (Normal)
[2021-09-15 01:09] LABS: Lactic Acid 1.2 mmol/L (0.4-1.9)
[2021-09-15 01:15] LABS: Squamous Epithelial Cells - UA 10-25 SEEN /hpf (5-10)
[2021-09-15 01:16] LABS: Bacteria 4+ /hpf (None Seen)
[2021-09-15 02:43] VITALS: PULSE 74; RESP 17
[2021-09-15 02:45] VITALS: BP 140/87
[2021-09-15 04:58] VITALS: BP 135/78; PULSE 82; RESP 16
== END 2021-09-15 04:59 | disposition home or self-care (01) ==
PROVIDERS: Emergency Provider Emergency Medicine; PCP Family Medicine
DX: K43.9 Ventral hernia without obstruction or gangrene (principal); K21.9 Gastro-esophageal reflux disease without esophagitis; E66.9 Obesity, unspecified; Z87.891 Personal history of nicotine dependence
CPT/HCPCS: 74177; 80053; 81001; 83605; 85025; 96372; 96374; 99284; Q9967; A4216; J2405

== ENCOUNTER 2022-03-20 23:36 | Emergency (ER) | payer MEDICAID, SELFPAY ==
[2022-03-20 23:37] VITALS: BP 128/82; PULSE 90; RESP 20; TEMP 37.3; O2SAT 97; BMI 46.0
--- NOTE | 2022-03-21 00:04 | EDS_ITS ---
HPI HPI - GI History of Present Illness Chief Complaint: Abd Pain Informant: patient Abdominal Pain/Flank Pain Onset: Today and Hours Context: Gradual Onset Timing: Continuous Quality: Aching Current Severity: Mild Maximum Severity: Moderate Worsened by: Nothing Relieved by: Nothing Nausea/Vomiting/Emesis GI Symptom: Positive for Nausea and Vomiting Onset: Today Severity: Mild Diarrhea/Melena/Hematochezia GI Symptom: Negative for Diarrhea, Melena and Hematochezia Associated Symptoms Associated Symptoms: Negative for Dysuria, Frequency and Hematuria Narrative Narrative: 36-year-old female has a history of a ventral hernia that she has been dealing with through the past 2 years. She has had multiple abdominal surgeries for it. She has a pending surgery at [facility]. She is currently going through a weight loss program and if she loses enough weight and her BMI gets to be at her particular level with her going to reconsider to have abdominal wall reconstruction and ventral hernia repair. She has pain with this a lot of the time. Today she felt a pop around 8:45 PM has had increased pain. She has had nausea and vomiting. No fever. No dysuria. Normal bowel movements recently and flatus. She denies any fever. No trauma. She has been seen here multiple times over the last 2 years for this has had multiple prior abdominal CTs. Prior similar symptoms: Yes Recent Illness/Hospitalization: No [facility] Medical History (Updated 03/21/22 @ 02:[address] Dung Shelby MD) Acute narcotic withdrawal Anxiety and depression Cellulitis, abdominal wall Elevated BP without diagnosis of hypertension GERD (gastroesophageal reflux disease) History of anxiety disorder Hypokalemia due to excessive gastrointestinal loss of potassium Intractable abdominal pain Morbid obesity Nausea vomiting and diarrhea JAGJIT (obstructive sleep apnea) Partial small bowel obstruction Postoperative lower abdominal pain Severe sepsis Sinus tachycardia by electrocardiogram Vomiting Home Medications buspirone 15 mg PO TID 03/20/22 [History Last Taken Unknown] fluoxetine 40 mg PO DAILY 03/20/22 [History Last Taken Unknown] Allergy/AdvReac Type Severity Reaction Status Date / Time ketorolac tromethamine Allergy Shortness Verified 09/14/21 22:50 [From Toradol] of breath ondansetron HCl [From Zofran] Allergy Shortness Verified 09/14/21 22:50 of breath Surgical History History of History of hysterectomy History of laparoscopic appendectomy History of laparoscopic cholecystectomy Hx of ventral hernia repair Recurrent ventral hernia with incarceration Social History Smoking Status: Current every day smoker tobacco type: cigarettes how long ago did patient quit smokin years ROS ROS ED ROS Narrative Abdominal pain. Nausea vomiting. Review of Systems ROS Unobtainable: Denies due to encephalopathy Constitutional Constitutional ED: Denies fever(s) ENT ENT ED: Denies ear pain Cardiovascular Cardiovascular: Denies chest pain Respiratory/Chest Respiratory/Chest: Denies dyspnea Gastrointestinal Gastrointestinal: Reports abdominal pain, nausea and vomiting Genitourinary Genitourinary ED: Denies dysuria Musculoskeletal Musculoskeletal: Denies myalgias Integumentary Denies rash Neurologic Neurologic: Denies headache(s) Psychiatric Psychiatric: Denies depression Endocrine Endocrinology: Denies polyuria Hematologic/Lymphatic Hematologic/Lymphatic: Denies easy bruising Allergic/Immunologic Allergic/Immunologic ED: Denies urticaria EXAM Physical Exam Narrative Exam Narrative: [id number] female vital signs stable afebrile. HEENT exam unremarkable. Lungs are clear. Heart regular rhythm rate about 90 no murmur. Abdomen is soft. She has a large lower abdominal hernia that is across the midline. At least the size of volleyball. Due to spirits diffusely tender. She has bowel sounds. The rest of her abdomen really is nontender and with no signs of obstruction currently. There is no significant discoloration of the hernia. Moving all 4 extremities. Neurologically she is awake and alert. Const Vital Signs: 03/20/22 23:37 Temperature 99.1 F Temperature Source Oral Pulse Rate 90 Respiratory Rate 20 H Blood Pressure 128/82 H Blood Pressure Mean 97 Pulse Ox 97 Oxygen Delivery Method Room Air Positive well nourished, well developed and obese; Negative for cachectic, contractures or unkempt General Appearance ED: well developed and NAD; Negative for unkempt, cachectic, contractures or pallor Nutritional Appearance: obese; Negative for cachectic HEENT Reports moist mucous membranes normocephalic and atraumatic; Negative for trauma or tenderness Eyes PERRL and EOMs intact bilaterally General Eye ED: Yes pale conjunctiva; Negative for scleral icterus Neck no lymphadenopathy, supple and no JVD General: Negative for tenderness Resp normal respiratory effort and clear to auscultation bilaterally Auscultation: Negative for rales, rhonchi or wheezes Cardio regular rate, regular rhythm, S1 normal heart sound, S2 normal heart sound and no murmurs GI non-distended and no masses; Negative for non-tender Inspection: Negative for abdominal distention Auscultation: normoactive bowel sounds; Negative for hyperactive bowel sounds or hypoactive bowel sounds Palpation: soft and hernia; Negative for tender, guarding, rigid, hepatomegaly, splenomegaly, mass, pulsatile mass or rebound tenderness present Back/Spine no CVA tenderness General Back: Negative for CVA tenderness Cervical Spine: Negative for cervical spine tenderness Thoracic Spine / Upper Back: Negative for thoracic spinal tenderness Lumbar Spine / Lower Back: Negative for lumbar spinal tenderness Extremity full ROM General Extremety ED: Negative for edema or tenderness General Extremity: Negative for edema Neuro moves all extremities Sensorium / Orientation: alert, oriented to person, oriented to place and oriented to time; Negative for orientation impaired, confused, lethargic or stuporous Motor Exam: strength 5/5 throughout Psych mental status grossly normal and thought process normal Appearance: Negative for unkempt Attitude: No agitated Mood & Affect: Negative for depressed or tearful Skin no wounds General Skin Exam: Negative for jaundice or pallor Lesions: no lesions Rashes: no rashes MDM MDM MDM Narrative Medical decision making narrative: 36-year-old with chronic abdominal pain and chronic hernia. Will be treated with IV morphine and Reglan for nausea. She states she had an allergic reaction before to Toradol and Zofran. I had a CAT scan screening labs to be obtained. Clinically I think this is acute on chronic hernia pain. I do not clinically think this is obstructed or incarcerated at this time. Repeat exam patient is doing well at 2:11 AM. She will be discharged home. Abdomen is benign. No peritoneal signs. Lab Data Attestation: I reviewed the patient's lab results. Lab results narrative: CBC shows white count 9.5. H&H 13 and 41. Electrolytes show a gap of 6 normal BUN and creatinine. Glucose of 110. Lactic acid normal. CAT scan shows a chronic hernia with no obstruction nor strangulation. Labs: Laboratory Results - last 24 hr 03/20/22 03/20/22 03/20/22 23:45 23:45 23:45 WBC 11.5 H RBC 4.48 Hgb 13.5 Hct 41.0 MCV 91.5 MCH 30.1 MCHC 32.9 RDW Std Deviation 43.6 RDW Coeff of Juan 13.0 Plt Count 285 MPV 9.1 Immature Gran % (Auto) 0.700 Neut % (Auto) 65.8 Lymph % (Auto) 25.7 [place] % (Auto) 5.2 Eos % (Auto) 2.3 Baso % (Auto) 0.3 Absolute Neuts (auto) 7.6 Absolute Lymphs (auto) 2.96 Nucleated RBC % 0 Sodium 137 Potassium 3.6 Chloride 107 Carbon Dioxide 24.0 Anion Gap 6 BUN 14 Creatinine 0.52 L Estim Creat Clear Calc 134.58 Est GFR (MDRD) Af Amer 172 Est GFR (MDRD) Non-Af 142 BUN/Creatinine Ratio 27.1 H Glucose 110 H Lactic Acid 0.7 Calcium 9.0 Radiography Diagnostic Testing: Clinical Impression(s) from Imaging Studies Abdomen/Pelvis CT 03/21/22 00:19 IMPRESSION: 1. Stable large ventral abdominal hernia containing multiple loops of bowel with no evidence of bowel stringed relation or obstruction. 2. Hepatic steatosis and hepatomegaly. 3. Other nonurgent findings within body of report. Electronically Signed: Kaushik Turner MD at 1:12 EDT , Discharge Plan Triage Chief Complaint: Abd Pain ED Provider: Dung Shelby Dx/Rx/DC Orders Clinical Impression: Abdominal pain, History of abdominal hernia Instructions: Abdominal Pain Prescriptions: No Action fluoxetine 40 mg capsule 40 mg PO DAILY RF: 0 buspirone 15 mg tablet 15 mg PO TID RF: 0 Primary Care Provider: Jose Barron Referrals: Jose Barron MD [Primary Care Provider] - As Needed Activity Restrictions/Additional Instructions: Tylenol and/or Motrin for pain. Follow-up with your surgeon from [facility]. Your labs tonight and CAT scan were unremarkable. Disposition Disposition: Home, Self Care
[2022-03-21] MEDS: Metoclopramide 10 MG/2 ML Vial IV (00:08)
[2022-03-21] MEDS: morphine 10 MG/ML Syringe IV (00:08)
[2022-03-21 00:16] LABS: Absolute Lymphocyte Count 2.96 X10^3/uL (0.83-4.51); Absolute Neutrophil Count 7.6 X10^3/uL (2.0-7.7); Basophil# 0.04 X10^3/uL; Basophil% 0.3 % (0-1); Eosinophil# 0.27 X10^3/uL; Eosinophils% 2.3 % (0-5); Hemoglobin 13.5 g/dL (12.0-15.0); Lymphocyte # 2.96 X10^3/ul (0.83-4.51); Lymphocyte % 25.7 % (19-41); Mean Corp Hgb Conc 32.9 g/dL (32-36); Mean Corpuscular Hgb 30.1 pg (27.0-32.0); Mean Corpuscular Volume 91.5 fL (81-99); Mean Platelet Vol. 9.1 fl (6.2-12.0); Monocyte% 5.2 % (0-10); NRBC Flagged by Analyzer 0 % (0-5); Neutrophil # 7.58 X10^3/uL (2.7-7.7); Neutrophil % 65.8 % (47-70); Platelet Count 285 K/mm3 (150-450); RBC Distribution Width SD 43.6 fl (35.1-43.9); Red Blood Count 4.48 M/mm3 (4.2-5.4); White Blood Count 11.5 K/mm3 (4.4-11.0)
--- NOTE | 2022-03-21 00:19 | CT_ITS ---
INDICATION: ventral hernia pain EXAMINATION: CT Abdomen And Pelvis W/ Contrast Injection TECHNIQUE: Helically acquired images were obtained of the abdomen and pelvis following IV contrast. 2-D reconstructions reviewed. A radiation dose optimization technique was used for this scan. IV Contrast dosage and agent: 100 mL Isovue-370 Oral contrast: None. COMPARISON: CT abdomen and pelvis from 09/15/2021. FINDINGS: LOWER CHEST: No acute findings within the imaged lung bases. Heart size within normal limits. LIVER: Fatty and enlarged liver measures 23 cm craniocaudal length. No concerning lesion. GALLBLADDER AND BILIARY TREE: Status post cholecystectomy. No significant biliary ductal dilation. PANCREAS: No discrete mass or peripancreatic edema. SPLEEN: Normal size without focal cystic or solid mass. ADRENAL GLANDS: Unremarkable. KIDNEYS AND URETERS: Normal renal size and position. No hydronephrosis. Couple small bilateral low-attenuation, simple appearing renal cysts again noted, requiring no additional follow-up. Tiny 2 mm right renal stone. No ureteral stones identified. PERITONEUM: No peritoneal free air or significant free fluid. No other fluid collection. RETROPERITONEUM: No retroperitoneal mass or pathologic fluid collection. BOWEL: Multiple loops of bowel remain within large ventral abdominal hernia sac. Patient is status post appendectomy and partial small bowel resection. No abnormal stomach or bowel distension. No focal inflammatory change. LYMPH NODES: No enlarged mesenteric or retroperitoneal lymph nodes. VESSELS: No acute findings. No abdominal aortic aneurysm. URINARY BLADDER: Unremarkable as visualized. REPRODUCTIVE ORGANS: Bilateral tubal ligation clips in place. No pelvic mass or large adnexal cyst. ABDOMINAL WALL: Stable large ventral abdominal hernia. BONES: Intact with no suspicious osseous lesion. CT/Abdomen/Pelvis W IV Cont ONLY IMPRESSION: 1. Stable large ventral abdominal hernia containing multiple loops of bowel with no evidence of bowel stringed relation or obstruction. 2. Hepatic steatosis and hepatomegaly. 3. Other nonurgent findings within body of report. Electronically Signed: Kaushik Turner MD at 1:12 EDT ,
[2022-03-21 00:39] LABS: Anion Gap 6 (5-15); BUN 14 mg/dL (7-18); BUN/Creat Ratio 27.1 RATIO (10-20); Chloride 107 mmol/L (98-107); Creatinine, Serum 0.52 mg/dL (0.55-1.02); EST Glomerular Filtration Rate 142 mL/min (>60); Est Glom Filt Rate - Afr Amer 172 mL/min (>60); Estimated Creatinine Clearance 134.58 ml/min; Glucose 110 mg/dL (74-106); Potassium 3.6 mmol/L (3.5-5.1); Sodium Level 137 mmol/L (136-145)
[2022-03-21 00:43] LABS: Lactic Acid 0.7 mmol/L (0.4-1.9)
[2022-03-21 02:17] VITALS: BP 124/70; PULSE 65; O2SAT 97
== END 2022-03-21 02:20 | disposition home or self-care (01) ==
PROVIDERS: Emergency Provider Emergency Medicine; PCP Family Medicine; Visit Provider Emergency Medicine
DX: K43.9 Ventral hernia without obstruction or gangrene (principal); E66.01 Morbid (severe) obesity due to excess calories; Z68.42 Body mass index [BMI] 45.0-49.9, adult; G89.29 Other chronic pain; F32.A Depression, unspecified; F41.9 Anxiety disorder, unspecified; F17.200 Nicotine dependence, unspecified, uncomplicated; Z79.899 Other long term (current) drug therapy
CPT/HCPCS: 74177; 80048; 83605; 85025; 96374; 96375; 99282; Q9967; A4216

== ENCOUNTER 2022-07-30 14:15 | Emergency (ER) | payer MEDICAID, SELFPAY ==
[2022-07-30 14:16] VITALS: BP 123/81; PULSE 79; RESP 16; TEMP 36.4; O2SAT 99; BMI 40.7
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
--- NOTE | 2022-07-30 14:38 | CM.ED ---
SW Note SW advised MD Gold and MARIE Serna that patient has an ED care plan. SW remains available if needs arise. Shirlene COOPER
[2022-07-30] MEDS: Metoclopramide 10 MG/2 ML Vial IV (14:52)
[2022-07-30 14:54] LABS: Absolute Neutrophil Count 4.9 X10^3/uL (2.0-7.7); Basophil# 0.03 X10^3/uL; Basophil% 0.4 % (0-1); Eosinophils% 2.6 % (0-5); Hematocrit 43.2 % (37-47); Hemoglobin 14.1 g/dL (12.0-15.0); Lymphocyte % 28.1 % (19-41); Mean Corp Hgb Conc 32.6 g/dL (32-36); Mean Corpuscular Hgb 29.9 pg (27.0-32.0); Mean Corpuscular Volume 91.7 fL (81-99); Mean Platelet Vol. 8.7 fl (6.2-12.0); Monocyte# 0.48 X10^3/uL; Monocyte% 6.1 % (0-10); NRBC Flagged by Analyzer 0 % (0-5); Neutrophil # 4.89 X10^3/uL (2.7-7.7); Neutrophil % 62.4 % (47-70); Platelet Count 252 K/mm3 (150-450); RBC Distribution Width CV 12.5 % (11.6-14.6); RBC Distribution Width SD 42.5 fl (35.1-43.9); Red Blood Count 4.71 M/mm3 (4.2-5.4); White Blood Count 7.8 K/mm3 (4.4-11.0)
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
[2022-07-30 15:09] LABS: Internal QC Validated? YES +Cl - CLEAR BKGD; Pregnancy, Serum, hCG Quali. NEGATIVE Negative
[2022-07-30 15:10] LABS: ALB/GLOB Ratio 1.2 RATIO (0.9-2.4); AST(SGOT) 7 U/L (15-37); Alanine Aminotransfer ALT/SGPT 19 U/L (13-56); Alkaline Phosphatase 48 U/L (45-117); Anion Gap 8 (5-15); BUN 11 mg/dL (7-18); BUN/Creat Ratio 21.8 RATIO (10-20); Calcium,Total 9.4 mg/dL (8.5-10.1); Chloride 108 mmol/L (98-107); EST Glomerular Filtration Rate 146 mL/min (>60); Est Glom Filt Rate - Afr Amer 177 mL/min (>60); Estimated Creatinine Clearance 138.62 ml/min; Globulin 3.3 g/dL (2.2-4.2); Glucose 93 mg/dL (74-106); Lipase 119 U/L (73-393); Potassium 3.8 mmol/L (3.5-5.1); Protein, Total 7.3 g/dL (6.4-8.2); Sodium Level 139 mmol/L (136-145)
== END 2022-07-30 15:04 | disposition left against medical advice (07) ==
PROVIDERS: Emergency Provider Student in an Organized Health Care Education/Training Program; PCP Family Medicine; Visit Provider Student in an Organized Health Care Education/Training Program
DX: R10.9 Unspecified abdominal pain (principal); G89.29 Other chronic pain; R11.2 Nausea with vomiting, unspecified; F17.210 Nicotine dependence, cigarettes, uncomplicated
CPT/HCPCS: 80053; 83690; 84703; 85025; 96374; 99283; A4216

== ENCOUNTER 2022-09-07 20:43 | Emergency (ER) | payer MEDICAID, SELFPAY ==
[2022-09-07 20:45] VITALS: BP 132/69; PULSE 136; RESP 22; TEMP 37; O2SAT 96; BMI 43.3
--- NOTE | 2022-09-07 21:32 | CT_ITS ---
INDICATION: Abdominal pain. Pain began in the back yesterday pain in the region of prior hernia surgery EXAMINATION: CT ABDOMEN AND PELVIS WITH CONTRAST - CT Abdomen And Pelvis W/ Contrast Injection TECHNIQUE: Helically acquired images were obtained of the abdomen and pelvis following IV contrast. A radiation dose optimization technique was used for this scan. IV Contrast dosage and agent: 100 mL of Isovue 370 Oral contrast: Gastrografin. COMPARISON: March 21, 2022. FINDINGS: LOWER CHEST: Lung bases are clear. No cardiomegaly or pericardial effusion. LIVER: Liver is enlarged but uniform in density No focal mass. GALLBLADDER AND BILIARY TREE: The gallbladder is nonvisualized consistent with cholecystectomy. No biliary ductal dilatation. PANCREAS: No focal cystic or solid mass. SPLEEN: Splenomegaly without mass. ADRENAL GLANDS: No nodules. KIDNEYS AND URETERS: Right kidney is malrotated. There is a small cyst in the upper pole. An exophytic cyst off the lower pole of the left kidney. No hydronephrosis. Normal visualized ureters. PERITONEUM: No ascites or free air. No other fluid collection. BOWEL: No evidence of acute appendicitis. There is a larger ventral hernia containing the body of the stomach as well as the majority of the small bowel right and proximal transverse colon. There is no mass or obstruction. Appendix is not clearly identified. LYMPH NODES: There are VESSELS: Aorta is non-dilated. Normal IVC. URINARY BLADDER: Unremarkable. REPRODUCTIVE ORGANS: Normal uterus. There is evidence of tubal ligation. No adnexal mass. ABDOMINAL WALL: As stated above, there is a large ventral hernia containing small bowel and colon. BONES: Mild degenerative changes lumbar spine. CT/Abdomen/Pelvis WITH Contrast IMPRESSION: 1. Large ventral hernia containing colon and small bowel. There is no evidence of obstruction. 2. No major interval change when compared to March 21, 2022 Electronically Signed: Gustavo Ash DO at 23:38 EST Reading Location ID and State: [address] [place] [address] Tel [phone], Service support ,
[2022-09-07] MEDS: Metoclopramide 10 MG/2 ML Vial 5 MG IV (21:44)
[2022-09-07] MEDS: 0.9% Normal Saline 1,000 ML 1000 ML IV (21:44)
[2022-09-07] MEDS: Morphine 4 MG/ML Syringe IV (21:44)
[2022-09-07 22:00] LABS: Absolute Lymphocyte Count 2.46 X10^3/uL (0.83-4.51); Absolute Neutrophil Count 7.1 X10^3/uL (2.0-7.7); Basophil# 0.02 X10^3/uL; Basophil% 0.2 % (0-1); Eosinophil# 0.11 X10^3/uL; Hemoglobin 12.1 g/dL (12.0-15.0); Lymphocyte # 2.46 X10^3/ul (0.83-4.51); Lymphocyte % 23.5 % (19-41); Mean Corp Hgb Conc 32.7 g/dL (32-36); Mean Corpuscular Hgb 30.6 pg (27.0-32.0); Mean Corpuscular Volume 93.4 fL (81-99); Monocyte# 0.76 X10^3/uL; Monocyte% 7.3 % (0-10); NRBC Flagged by Analyzer 0 % (0-5); Neutrophil # 7.06 X10^3/uL (2.7-7.7); Neutrophil % 67.3 % (47-70); Platelet Count 225 K/mm3 (150-450); RBC Distribution Width CV 12.8 % (11.6-14.6); RBC Distribution Width SD 43.8 fl (35.1-43.9); Red Blood Count 3.96 M/mm3 (4.2-5.4); White Blood Count 10.5 K/mm3 (4.4-11.0)
[2022-09-07] MEDS: DiphenhydrAMINE 50 MG/ML Syringe 25 MG IV (22:11)
[2022-09-07 22:24] LABS: Albumin, Serum 3.6 g/dL (3.2-5.0); BUN 21 mg/dL (7-18); BUN/Creat Ratio 28.5 RATIO (10-20); Creatinine, Serum 0.74 mg/dL (0.55-1.02); EST Glomerular Filtration Rate 94 mL/min (>60); Est Glom Filt Rate - Afr Amer 114 mL/min (>60); Estimated Creatinine Clearance 93.66 ml/min; Glucose 141 mg/dL (74-106); Protein, Total 6.5 g/dL (6.4-8.2)
[2022-09-07 22:25] LABS: AST(SGOT) 5 U/L (15-37); Alanine Aminotransfer ALT/SGPT 17 U/L (13-56); Alkaline Phosphatase 44 U/L (45-117); Anion Gap 11 (5-15); Bilirubin, Direct < 0.05 mg/dL (0.00-0.30); Calcium,Total 8.8 mg/dL (8.5-10.1); Chloride 104 mmol/L (98-107); Globulin 2.9 g/dL (2.2-4.2); Potassium 2.9 mmol/L (3.5-5.1); Sodium Level 140 mmol/L (136-145)
[2022-09-07 22:32] LABS: Lactic Acid 4.2 mmol/L (0.4-1.9)
[2022-09-07 22:44] VITALS: BP 120/54; PULSE 93; RESP 15; O2SAT 98
[2022-09-07] MEDS: Potassium Chloride 10mEq/100mL 10 MEQ/100 ML IV.SOLN. 100 MEQ IV BOLUS (23:40)
[2022-09-07] MEDS: Acetaminophen 500 MG Tablet 1000 MG PO (23:54)
[2022-09-07] MEDS: proMETHazine 25 MG/ML Syringe 12.5 MG IM (23:54)
[2022-09-08] VITALS: O2SAT 100
[2022-09-08] MEDS: LORazepam 2 MG/ML Syringe 1 MG IV (00:08)
--- NOTE | 2022-09-08 00:27 | EX.ED.DYSGE1 ---
HPI History of Present Illness Chief Complaint: Abd Pain Informant: patient Onset/Context/Timing Onset: Days Context: Gradual Onset Timing: Waxes and wanes Current Severity: Severe Maximum Severity: Severe Narrative Narrative: Patient presents secondary to abdominal pain from her large ventral hernia. She has a large ventral hernia is been a recurrent problem for her. She is currently following with a specialist at [facility] and plan is for hernia repair once her BMI is down under 40. She is been working on losing weight so that she can have her surgery. She reports increased pain to the hernia site over the past 2 days. She called her surgeon at [facility] who encouraged her to come to the emergency room. She denies fever or chills. She reports nausea. Last bowel movement was earlier this morning and was liquid. [facility] Medical History Acute narcotic withdrawal Anxiety and depression Elevated BP without diagnosis of hypertension GERD (gastroesophageal reflux disease) History of anxiety disorder Hypokalemia due to excessive gastrointestinal loss of potassium Intractable abdominal pain Morbid obesity JAGJIT (obstructive sleep apnea) Partial small bowel obstruction Postoperative lower abdominal pain Sinus tachycardia by electrocardiogram Home Medications buspirone 15 mg tablet 15 mg PO TID 03/20/22 [History Last Taken Unknown] fluoxetine 40 mg capsule 40 mg PO DAILY 03/20/22 [History Last Taken Unknown] promethazine 25 mg tablet 25 mg PO TID PRN nausea and vomiting #20 tabs 09/08/22 [Rx Last Taken Unknown] tramadol 100 mg tablet 100 mg PO BID PRN pain #6 tabs 09/08/22 [Rx Last Taken Unknown] Allergy/AdvReac Type Severity Reaction Status Date / Time ketorolac tromethamine Allergy Shortness Verified 09/07/22 20:50 [From Toradol] of breath ondansetron HCl [From Zofran] Allergy Shortness Verified 09/07/22 20:50 of breath Surgical History History of History of hysterectomy History of laparoscopic appendectomy History of laparoscopic cholecystectomy Hx of ventral hernia repair Recurrent ventral hernia with incarceration Social History Smoking Status: Former smoker how long ago did patient quit smokin years ROS ROS ED Constitutional Constitutional ED: Denies chills or fever(s) Eyes Eyes: Denies change in vision or discharge from eye(s) ENT ENT ED: Denies discharge from eye(s), rhinorrhea or sore throat Cardiovascular Cardiovascular: Denies chest pain or palpitations Respiratory/Chest Respiratory/Chest: Denies cough or dyspnea Gastrointestinal Gastrointestinal: Reports abdominal pain, nausea and vomiting Genitourinary Genitourinary ED: Denies dysuria Musculoskeletal Musculoskeletal: Denies back pain or extremity pain Integumentary Denies Abrasions or rash Neurologic Neurologic: Denies headache(s) or weakness Psychiatric Psychiatric: Denies anxiety or depression Allergic/Immunologic Allergic/Immunologic ED: Denies lip swelling or urticaria EXAM Physical Exam Const Vital Signs: 09/07/22 20:45 09/07/22 22:44 09/08/22 00:00 Temperature 98.6 F Temperature Source Temporal Pulse Rate 136 H 93 Respiratory Rate 22 H 15 Blood Pressure 132/69 H 120/54 L Blood Pressure Mean 90 76 Pulse Ox 96 98 100 Oxygen Delivery Method Room Air Room Air Room Air Positive well nourished and well developed General Appearance ED: well developed HEENT Reports normocephalic and head/scalp atraumatic Eyes PERRL and EOMs intact bilaterally Neck supple Chest Wall inspection of chest normal and palpation of chest normal Resp normal respiratory effort and clear to auscultation bilaterally Cardio regular rhythm Rate: tachycardic GI GI Narrative: Patient has a large ventral hernia. Area is tender. No evidence of incarceration on exam. Bowel sounds are noted on auscultation. Palpation: soft Extremity normal to inspection Neuro oriented x3 and no sensory deficits noted Sensorium / Orientation: alert Motor Exam: strength 5/5 throughout Psych Mood & Affect: anxious Skin no rashes or lesions noted MDM MDM MDM Narrative Medical decision making narrative: Patient given single dose of morphine and Reglan here while obtaining work-up. She states she became jittery with Reglan and required a dose of Benadryl. Lab work obtained along with CT scan of the abdomen and pelvis. Lab Data Attestation: I reviewed the patient's lab results. Labs: Laboratory Results - last 24 hr 09/07/22 09/07/22 09/07/22 21:49 21:49 21:49 WBC 10.5 RBC 3.96 L Hgb 12.1 Hct 37.0 MCV 93.4 MCH 30.6 MCHC 32.7 RDW Std Deviation 43.8 RDW Coeff of Juan 12.8 Plt Count 225 MPV 9.0 Immature Gran % (Auto) 0.700 Neut % (Auto) 67.3 Lymph % (Auto) 23.5 [place] % (Auto) 7.3 Eos % (Auto) 1.0 Baso % (Auto) 0.2 Absolute Neuts (auto) 7.1 Absolute Lymphs (auto) 2.46 Nucleated RBC % 0 Sodium 140 Potassium 2.9 L Chloride 104 Carbon Dioxide 25.0 Anion Gap 11 BUN 21 H Creatinine 0.74 Estim Creat Clear Calc 93.66 Est GFR (MDRD) Af Amer 114 Est GFR (MDRD) Non-Af 94 BUN/Creatinine Ratio 28.5 H Glucose 141 H Lactic Acid 4.2 H* Calcium 8.8 Total Bilirubin 0.10 L Direct Bilirubin < 0.05 AST 5 L ALT 17 Alkaline Phosphatase 44 L Total Protein 6.5 Albumin 3.6 Globulin 2.9 Radiography Diagnostic Testing: Clinical Impression(s) from Imaging Studies Abdomen/Pelvis CT 09/07/22 21:32 IMPRESSION: 1. Large ventral hernia containing colon and small bowel. There is no evidence of obstruction. 2. No major interval change when compared to March 21, 2022 Electronically Signed: Gustavo Ash DO at 23:38 EST Reading Location ID and State: [address] [place] [address] Tel [phone], Service support , Treatment and Re-Evaluation Narrative: CBC reveals normal white count. No left shift. Chemistry studies significant for potassium of 2.9. Renal function is normal. LFTs are normal. Lactic acid is elevated at 4.2. CT scan with contrast reveals a large ventral hernia containing part of the stomach, small bowel, and colon. There is no evidence of obstruction. There is no evidence of bowel wall abnormality. There is no major change when compared to prior study. Patient was given Phenergan and Tylenol for additional pain and nausea. I advised her that I would not be giving her additional narcotics at this time. Potassium is being replaced intravenously. Patient was given a single dose of Ativan here to help with anxiety. On repeat exam patient resting more comfortably. She describes continued pressure in her abdomen. I did do an [facility] report. She has not had any prescription pain medication in over a year. I will write her for 6 tabs of tramadol as well as Phenergan to help control nausea. Return instructions given. Discharge Plan Triage Chief Complaint: Abd Pain ED Provider: Michelle Orourke Dx/Rx/DC Orders Clinical Impression: Abdominal pain, Hernia, ventral Instructions: ED Hernia (Adult) Prescriptions: New promethazine 25 mg tablet 25 mg PO TID PRN (Reason: nausea and vomiting) Qty: 20 0RF tramadol 100 mg tablet 100 mg PO BID PRN (Reason: pain) Qty: 6 0RF No Action fluoxetine 40 mg capsule 40 mg PO DAILY Label Comments: take 1 capsule by mouth once daily buspirone 15 mg tablet 15 mg PO TID Label Comments: take 1 tablet by mouth three times a day Primary Care Provider: Jose Barron Referrals: Jose Barron MD [Primary Care Provider] - Activity Restrictions/Additional Instructions: Follow-up with your surgeon at [facility]. Disposition Disposition: Home, Self Care
[2022-09-08] MEDS: 0.9% Normal Saline 1,000 ML 150 ML IV (00:53)
[2022-09-08] MEDS: Potassium Chloride 10mEq/100mL 10 MEQ/100 ML IV.SOLN. 100 MEQ IV BOLUS ×3 (00:53→02:58)
[2022-09-08 02:11] LABS: Reflex Lactate? Y
[2022-09-08 03:08] LABS: Lactic Acid 2.3 mmol/L (0.4-1.9)
[2022-09-08 04:07] VITALS: BP 113/71; PULSE 84; RESP 15; O2SAT 99
== END 2022-09-08 04:12 | disposition home or self-care (01) ==
PROVIDERS: Emergency Provider Emergency Medicine; PCP Family Medicine; Visit Provider Emergency Medicine
DX: K43.9 Ventral hernia without obstruction or gangrene (principal); R10.9 Unspecified abdominal pain; Z87.891 Personal history of nicotine dependence
CPT/HCPCS: 74177; 80048; 80076; 83605; 85025; 96361; 96372; 96374; 96375; 99285; J7030; Q9967; A4216

== ENCOUNTER 2023-02-28 14:37 | Emergency (ER) | payer MEDICAID, SELFPAY ==
[2023-02-28 14:40] VITALS: BP 149/90; PULSE 82; RESP 24; TEMP 36.6; O2SAT 99; BMI 40.4
--- NOTE | 2023-02-28 15:13 | CT_ITS ---
STUDY: CT BRAIN WITHOUT CONTRAST REASON FOR EXAM: Female, 37 years old. sudden severe headache RADIATION DOSAGE (If Supplied By Facility): CTDIvol = ( 44.99 ) mGy, DLP = ( 846.73 ) mGycm TECHNIQUE: Transaxial CT imaging of the brain was performed without administration of intravenous contrast material. Individualized dose optimization techniques were used for this CT. COMPARISON: October 08, 2011. FINDINGS: Normal soft tissue structures. Normal calvarium. Normal size ventricles and extra-axial spaces for the patient''s age. Normal white matter tracts of the cerebral hemispheres. Normal basal ganglia and thalami. Normal brainstem. Normal cerebellum. There is no intracranial hemorrhage. There are no findings of an acute ischemic infarction. Partial empty sella deformity likely of no significance Normal visualized paranasal sinuses. CT/Brain/Head without Contrast IMPRESSION: Partial empty sella deformity otherwise normal unenhanced CT of the brain. Electronically Signed: Jose Ayala MD at 16:28 EDT ,
--- NOTE | 2023-02-28 15:13 | CT_ITS ---
STUDY: CT ABDOMEN AND PELVIS WITH CONTRAST REASON FOR EXAM: Female, 37 years old. abd pain, hernia, n/v RADIATION DOSAGE (If Supplied By Facility): CTDIvol = ( 18.74 ) mGy, DLP = ( 1361.30 ) mGycm TECHNIQUE: Transaxial images were obtained from the dome of the diaphragm to the symphysis pubis without oral contrast. IV 100mL Isovue-370 was administered. Sagittal and coronal images were reconstructed. Individualized dose optimization techniques were used for this CT. COMPARISON: September 07, 2022 FINDINGS: The visualized lung bases are unremarkable. The visualized portions of the heart are within normal limits. Normal liver. Gallbladder has been removed surgically.. Normal spleen. Normal pancreas. Normal bilateral adrenal glands. No evidence for renal obstruction. There is a tiny hypoattenuated nodule in the left renal cortex not clearly cystic by CT criteria. MRI recommended for further evaluation Normal visualized stomach. Normal small intestine. . No evidence for acute appendicitis. Normal abdominal aorta. Normal inferior vena cava. Normal retroperitoneum. Normal urinary bladder. Postop change status post bilateral tubal ligation. There is a very large hernia within the right anterolateral abdominal and pelvic wall containing multiple loops of small bowel as well as the entire ascending colon and portion of the transverse colon without evidence for proximal bowel obstruction or incarceration. Mild degenerative changes of the thoracolumbar spine.. Incidental finding of tiny left adrenal nodule which is not clearly cystic by CT criteria and may be further investigated with MRI CT/Abdomen/Pelvis W IV Cont ONLY IMPRESSION: Large right anterolateral abdominal pelvic wall hernia containing multiple loops of small bowel and the ascending colon as well as portion of transverse colon without evidence for proximal obstruction or incarceration. . Postop change status post cholecystectomy and bilateral tubal ligation. Electronically Signed: Jose Ayala MD at 16:43 EDT ,
--- NOTE | 2023-02-28 15:17 | ED.VIS.GI ---
HPI HPI - GI History of Present Illness Chief Complaint: Abd Pain Informant: patient Abdominal Pain/Flank Pain Onset: Hours (1) Context: Sudden Onset Timing: Continuous Current Severity: Severe Maximum Severity: Severe Worsened by: Nothing Relieved by: Nothing Nausea/Vomiting/Emesis GI Symptom: Positive for Nausea and Vomiting Onset: Hours (1) Quality: Positive for Nonbilious Diarrhea/Melena/Hematochezia GI Symptom: Negative for Diarrhea, Melena or Hematochezia Associated Symptoms Associated Symptoms: Negative for Dysuria, Frequency, Hematuria or Urgency Narrative Narrative: 37-year-old female has a history of a large lower abdominal hernia that is scheduled to be repaired at [facility] in April. She states she was feeling fine today, she went to have a bowel movement and while she was in the process of this she had sudden onset of a pop in the area of the hernia with then severe pain that has been unrelenting associated with dry heaving and a sudden onset terrible posterior headache that started at similar time. She has photophobia with this. She does not have a history of headaches, she states this is all new. When she tried to have a bowel movement she had very little come out, she had been having good bowel movements up until then. This is all in the right lower quadrant area. [facility] Medical History Acute narcotic withdrawal Anxiety and depression Elevated BP without diagnosis of hypertension GERD (gastroesophageal reflux disease) History of anxiety disorder Hypokalemia due to excessive gastrointestinal loss of potassium Intractable abdominal pain Morbid obesity JAGJIT (obstructive sleep apnea) Partial small bowel obstruction Postoperative lower abdominal pain Sinus tachycardia by electrocardiogram Home Medications buspirone 15 mg tablet 15 mg PO TID 03/20/22 [History Last Taken Unknown] fluoxetine 40 mg capsule 40 mg PO DAILY 03/20/22 [History Last Taken Unknown] promethazine 25 mg tablet 25 mg PO TID PRN nausea and vomiting #20 tabs 09/08/22 [Rx Last Taken Unknown] tramadol 100 mg tablet 100 mg PO BID PRN pain #6 tabs 09/08/22 [Rx Last Taken Unknown] Allergy/AdvReac Type Severity Reaction Status Date / Time ketorolac tromethamine Allergy Shortness Verified 09/07/22 20:50 [From Toradol] of breath ondansetron HCl [From Zofran] Allergy Shortness Verified 09/07/22 20:50 of breath Surgical History History of History of hysterectomy History of laparoscopic appendectomy History of laparoscopic cholecystectomy Hx of ventral hernia repair Recurrent ventral hernia with incarceration Social History Smoking Status: Former smoker how long ago did patient quit smokin years ROS ROS ED Constitutional Constitutional ED: Denies chills or fever(s) Eyes Eyes: Reports photophobia; Denies change in vision or diplopia ENT ENT ED: Denies rhinorrhea or sore throat Cardiovascular Cardiovascular: Denies chest pain or palpitations Respiratory/Chest Respiratory/Chest: Denies cough or dyspnea Gastrointestinal Gastrointestinal: Reports abdominal pain, nausea and vomiting; Denies diarrhea Genitourinary Genitourinary ED: Denies dysuria or hematuria Musculoskeletal Musculoskeletal: Denies back pain or neck pain Integumentary Denies abscess or rash Neurologic Neurologic: Reports headache(s); Denies paresthesias or weakness Psychiatric Psychiatric: Reports anxiety; Denies suicidal thoughts EXAM Physical Exam Const Vital Signs: 02/28/23 14:40 Temperature 97.9 F Temperature Source Oral Pulse Rate 82 Respiratory Rate 24 H Blood Pressure 149/90 H Blood Pressure Mean 109 Pulse Ox 99 Oxygen Delivery Method Room Air Positive well nourished and well developed Constitutional Narrative: And anxious, painful distress. Crying. General Appearance ED: well developed HEENT Reports moist mucous membranes normocephalic and atraumatic Eyes PERRL and EOMs intact bilaterally Eyes Narrative: Photophobia otherwise normal eye exam Neck full ROM and supple Resp normal respiratory effort and clear to auscultation bilaterally Cardio regular rate, regular rhythm and no murmurs Rate: Negative for tachycardic GI GI Narrative: No clear distention but exam limited by obesity, acuity, and the size of the lower abdominal hernia. There is no overlying erythema or color changes/abnormalities, the entire hernia which is approximately 15 or 20 cm in diameter is extremely tender as is the surrounding abdomen, she does not have any tenderness in the left upper quadrant, but the rest of her abdomen is tender. There is no guarding or rebound. Auscultation: hypoactive bowel sounds Palpation: soft Back/Spine no CVA tenderness General Back: other FROM Extremity normal to inspection General Extremety ED: Negative for edema, pulses abnormal or tenderness General Extremity: Negative for edema or pulses abnormal Neuro oriented x3, CN's II-XII intact bilaterally and no sensory deficits noted Sensorium / Orientation: awake and alert Motor Exam: strength 5/5 throughout Psych Attitude: agitated Mood & Affect: anxious and tearful Skin no rashes or lesions noted and no wounds MDM MDM MDM Narrative Medical decision making narrative: Patient has a care plan here given multiple visits for chronic pain in the past. However, she appears to be having acute pain, and so regardless of the care plan to give her a dose of morphine because she was an extremis relatively, and I was concerned about an incarcerated hernia since this hernia that she has is large. That helped her pain significantly, she was also given Reglan for the nausea and headache which may or may not be a migraine. She did not have a thunderclap but I did send her for a CT of her head as well, I reviewed the imaging, and I reviewed the radiologist report, I agree with them, basically negative for intracranial hemorrhage and negative for incarcerated hernia or perforated viscus or any other acute abnormality. The hernia is noted, and it does not appear to have any distended loops to suggest an obstruction and no free air. She is doing much better on reevaluation texting on her phone. She states the headache is still there is only a little better. The labs are noted, she always has a lactic acidosis, and she does have a leukocytosis however she was borderline hysterical when I first evaluated her, and I think that hyperventilation also probably caused an acute respiratory alkalosis causing her potassium to appear low although she has no reason for it to be low at this time so I do not think that needs to be replaced. She understands that we would not be giving her any more narcotics, and she is not asking for that, but she states that she is still vomiting with the headache that she supposes is probably a migraine now since she has a history of those, she is asking for something more for that which I think is totally reasonable, we will give her Compazine prior to discharge as long as that helps. She declares allergy to Toradol and Zofran, she received both of them together once and broke out in hives and got a little short of breath, so we are avoiding both of those since she does not know which one she is allergic to although it is probably the NSAID. Lab Data Attestation: I reviewed the patient's lab results. Labs: Laboratory Results - last 24 hr 02/28/23 02/28/23 02/28/23 15:00 15:00 15:00 WBC 13.7 H RBC 4.56 Hgb 14.2 Hct 41.5 MCV 91.0 MCH 31.1 MCHC 34.2 RDW Std Deviation 41.6 RDW Coeff of Juan 12.6 Plt Count 445 MPV 9.5 Immature Gran % (Auto) 0.400 Neut % (Auto) 57.6 Lymph % (Auto) 33.0 [place] % (Auto) 6.2 Eos % (Auto) 2.3 Baso % (Auto) 0.5 Absolute Neuts (auto) 7.9 H Absolute Lymphs (auto) 4.54 H Nucleated RBC % 0 Sodium 140 Potassium 3.1 L Chloride 106 Carbon Dioxide 23.0 Anion Gap 11 BUN 12 Creatinine 0.73 Estim Creat Clear Calc 94.95 Est GFR (MDRD) Af Amer 115 Est GFR (MDRD) Non-Af 95 BUN/Creatinine Ratio 16.4 Glucose 134 H Lactic Acid 3.0 H* Calcium 9.6 Total Bilirubin 0.30 AST 12 L ALT 23 Alkaline Phosphatase 53 Total Protein 7.1 Albumin 3.9 Globulin 3.2 Albumin/Globulin Ratio 1.2 Urine Color Urine Clarity Urine pH Ur Specific [place] Urine Protein Urine Glucose (UA) Urine Ketones Urine Occult Blood Urine Nitrite Urine Bilirubin Urine Urobilinogen Ur Leukocyte Esterase Urine RBC Urine WBC Ur Squamous Epith Cells Urine Bacteria Urine Mucus 02/28/23 16:03 WBC RBC Hgb Hct MCV MCH MCHC RDW Std Deviation RDW Coeff of Juan Plt Count MPV Immature Gran % (Auto) Neut % (Auto) Lymph % (Auto) [place] % (Auto) Eos % (Auto) Baso % (Auto) Absolute Neuts (auto) Absolute Lymphs (auto) Nucleated RBC % Sodium Potassium Chloride Carbon Dioxide Anion Gap BUN Creatinine Estim Creat Clear Calc Est GFR (MDRD) Af Amer Est GFR (MDRD) Non-Af BUN/Creatinine Ratio Glucose Lactic Acid Calcium Total Bilirubin AST ALT Alkaline Phosphatase Total Protein Albumin Globulin Albumin/Globulin Ratio Urine Color Yellow Urine Clarity Clear Urine pH 7.0 Ur Specific [place] 1.010 Urine Protein 15 H Urine Glucose (UA) Normal Urine Ketones 15 H Urine Occult Blood Negative Urine Nitrite Negative Urine Bilirubin Negative Urine Urobilinogen Normal Ur Leukocyte Esterase Negative Urine RBC 0 SEEN Urine WBC 0 SEEN Ur Squamous Epith Cells 5-10 SEEN Urine Bacteria 0 SEEN Urine Mucus 0 SEEN Radiography Diagnostic Testing: Clinical Impression(s) from Imaging Studies Abdomen/Pelvis CT 02/28/23 15:13 IMPRESSION: Large right anterolateral abdominal pelvic wall hernia containing multiple loops of small bowel and the ascending colon as well as portion of transverse colon without evidence for proximal obstruction or incarceration. . Postop change status post cholecystectomy and bilateral tubal ligation. Electronically Signed: Jose Ayala MD at 16:43 EDT , Brain CT 02/28/23 15:13 IMPRESSION: Partial empty sella deformity otherwise normal unenhanced CT of the brain. Electronically Signed: Jose Ayala MD at 16:28 EDT , Discharge Plan Triage Chief Complaint: Abd Pain ED Provider: Mehrdad Moore Dx/Rx/DC Orders Clinical Impression: Lower abdominal pain, Migraine headache Instructions: ED Hernia (Adult) Prescriptions: No Action fluoxetine 40 mg capsule 40 mg PO DAILY Label Comments: take 1 capsule by mouth once daily buspirone 15 mg tablet 15 mg PO TID Label Comments: take 1 tablet by mouth three times a day promethazine 25 mg tablet 25 mg PO TID PRN (Reason: nausea and vomiting) Qty: 20 0RF tramadol 100 mg tablet 100 mg PO BID PRN (Reason: pain) Qty: 6 0RF Primary Care Provider: Care Physician,No Primary Referrals: Jose Barron MD [Non-Staff] - 3-5 Days if not improving (or your [facility] surgeon) Disposition Disposition: Home, Self Care
--- NOTE | 2023-02-28 15:20 | CM.ED ---
Social Work Referral Source: case find Referral Reason: care plan SW reviewed patient's chart and provided a copy of patient's care plan to MD Moore to review possible obstacles and solutions regarding care for patient. MD reports understanding and will consult with SW if needs arise. Radha Devine MSW, JACQUELINE
[2023-02-28] MEDS: Morphine 4 MG/ML Syringe IV (15:32)
[2023-02-28] MEDS: Metoclopramide 10 MG/2 ML Vial 5 MG IV (15:32)
[2023-02-28 15:44] LABS: Absolute Lymphocyte Count 4.54 X10^3/uL (0.83-4.51); Absolute Neutrophil Count 7.9 X10^3/uL (2.0-7.7); Basophil# 0.07 X10^3/uL; Basophil% 0.5 % (0-1); Eosinophil# 0.32 X10^3/uL; Eosinophils% 2.3 % (0-5); Hematocrit 41.5 % (37-47); Hemoglobin 14.2 g/dL (12.0-15.0); Lymphocyte # 4.54 X10^3/ul (0.83-4.51); Mean Corp Hgb Conc 34.2 g/dL (32-36); Mean Corpuscular Hgb 31.1 pg (27.0-32.0); Mean Platelet Vol. 9.5 fl (6.2-12.0); Monocyte# 0.85 X10^3/uL; Monocyte% 6.2 % (0-10); NRBC Flagged by Analyzer 0 % (0-5); Neutrophil % 57.6 % (47-70); Platelet Count 445 K/mm3 (150-450); RBC Distribution Width CV 12.6 % (11.6-14.6); RBC Distribution Width SD 41.6 fl (35.1-43.9); Red Blood Count 4.56 M/mm3 (4.2-5.4); White Blood Count 13.7 K/mm3 (4.4-11.0)
[2023-02-28 16:00] LABS: ALB/GLOB Ratio 1.2 RATIO (0.9-2.4); AST(SGOT) 12 U/L (15-37); Alanine Aminotransfer ALT/SGPT 23 U/L (13-56); Albumin, Serum 3.9 g/dL (3.2-5.0); Alkaline Phosphatase 53 U/L (45-117); Anion Gap 11 (5-15); BUN 12 mg/dL (7-18); BUN/Creat Ratio 16.4 RATIO (10-20); Calcium,Total 9.6 mg/dL (8.5-10.1); Chloride 106 mmol/L (98-107); Creatinine, Serum 0.73 mg/dL (0.55-1.02); EST Glomerular Filtration Rate 95 mL/min (>60); Est Glom Filt Rate - Afr Amer 115 mL/min (>60); Estimated Creatinine Clearance 94.95 ml/min; Globulin 3.2 g/dL (2.2-4.2); Glucose 134 mg/dL (74-106); Potassium 3.1 mmol/L (3.5-5.1); Protein, Total 7.1 g/dL (6.4-8.2); Sodium Level 140 mmol/L (136-145)
[2023-02-28 16:07] LABS: Bacteria 0 SEEN /hpf (None Seen); Mucous, Urine 0 SEEN /hpf (<or=2+); Red Blood Cells-Urine 0 SEEN /hpf (0-5); White Blood Cells 0 SEEN /hpf (0-5)
[2023-02-28 16:11] LABS: Color, Urine Yellow (Yellow); Glucose, Dipstick Normal (Normal); Ketone-Dipstick 15 mg/dl (Negative); Leukocyte Esterase-Dipstick Negative /ul (Negative); Nitrite-Dipstick Negative (Negative); Occult Blood-Urine Negative /ul (Negative); Protein-Dipstick 15 mg/dl (Negative); Urine Bilirubin Dipstick Negative (Negative); Urine Clarity Clear (Clear); Urine Urobilinogen Normal (Normal)
[2023-02-28 16:22] LABS: Squamous Epithelial Cells - UA 5-10 SEEN /hpf (5-10)
--- NOTE | 2023-02-28 17:00 | CM.ED ---
Social Work Note Referral Source: case find Referral Reason: no PCP SW met with patient and introduced herself and role as [facility] [employer]. Patient lying on hospital bed and agreeable to speak with SW. SW inquired about patient's insurance and current PCP. Patient verified insurance and reports no current PCP. SW provided patient with a list of local PCPs in network with patient's insurance and accepting new patients. Patient was receptive towards list and voiced no other needs. SW remains available if needs arise. Radha Devine MSW, JACQUELINE
[2023-02-28] MEDS: proCHLORPERazine 10 MG/2 ML Vial 5 MG IV (17:02)
[2023-02-28 19:38] LABS: Reflex Lactate? Y
== END 2023-02-28 17:10 | disposition home or self-care (01) ==
PROVIDERS: Emergency Provider Emergency Medicine; Visit Provider Emergency Medicine
DX: R10.30 Lower abdominal pain, unspecified (principal); G43.909 Migraine, unspecified, not intractable, without status migrainosus; Z87.891 Personal history of nicotine dependence; K43.9 Ventral hernia without obstruction or gangrene; Z90.49 Acquired absence of other specified parts of digestive tract
CPT/HCPCS: 70450; 74177; 80053; 81001; 83605; 85025; 96374; 96375; 99285; J7030; Q9967; A4216

== ENCOUNTER 2025-09-11 05:05 | Emergency (ER) | payer OTHER, SELFPAY ==
[2025-09-11 05:07] VITALS: BP 132/83; PULSE 84; RESP 16; TEMP 36.5; O2SAT 99; BMI 38.0
--- NOTE | 2025-09-11 05:35 | CT_ITS ---
PROCEDURE: ABDOMEN/PELVIS W IV CONT ONLY 09/11/2025 REASON FOR EXAM: ABD PAIN TECHNIQUE: Procedure Code: [id number] Modality: CT Procedure: ABDOMEN/PELVIS W IV CONT ONLY Coronal and Sagittal reconstruction series were provided. CONTRAST: OMNIPAQUE 350 VOLUME: 100 mL One or more dose reduction techniques were used (e.g., Automated exposure control, adjustment of the mA and/or kV according to patient size, use of iterative reconstruction technique. RADIATION DOSE SUMMARY: CTDlvol: 31.4 mGy DLP: 1289 mGycm COMPARISON: CT scan on 02/28/2023. FINDINGS: Prior cholecystectomy. Diffuse thickening of the stomach suggestive of gastritis. Right renal nonobstructing stone measuring 3 mm. Unchanged left renal hypodense lesion. Unchanged bilateral scattered simple renal cysts. Unchanged uterine leiomyoma measuring 3.5 cm. Unchanged bilateral tubal clips. Moderate amount of fecal residue in the large bowels with mild stercoral colitis. Diffuse colonic diverticulosis. Surgical changes of the anterior abdominal wall. Mild diffuse spondylosis. The visualized lung bases are unremarkable. Normal liver. Normal extrahepatic biliary system. Normal spleen. Normal pancreas. Normal bilateral adrenal glands. Normal size of the right kidney. There is no right hydronephrosis. Normal visualized right ureter. Normal size of the left kidney. There are no left renal calculi. There is no left hydronephrosis. Normal visualized left ureter. Normal small intestine. The appendix is not visualized. There is no demonstrated peritoneal fluid. Normal abdominal aorta. Normal inferior vena cava. Normal retroperitoneum. Normal urinary bladder. There is no pelvic mass lesion or lymphadenopathy. There is no pelvic fluid. CT/Abdomen/Pelvis W IV Cont ONLY IMPRESSION: Prior cholecystectomy. Diffuse thickening of the stomach suggestive of gastritis. Right renal nonobstructing stone measuring 3 mm. Unchanged left renal hypodense lesion. Unchanged bilateral scattered simple renal cysts. Unchanged uterine leiomyoma measuring 3.5 cm. Unchanged bilateral tubal clips. Moderate amount of fecal residue in the large bowels with mild stercoral coliti s. Diffuse colonic diverticulosis. Surgical changes of the anterior abdominal wall. Mild diffuse spondylosis. Reading Location: [place] [id number]
[2025-09-11] MEDS: 0.9% Normal Saline (1000mL) 1,000 ML 999 ML IV (05:44)
[2025-09-11 05:48] LABS: Hematocrit 40.0 % (37-47); Hemoglobin 13.2 g/dL (12.0-15.0); Immature Granulocytes Count 0.070 X10^3/uL (0.0-0.0); Mean Corp Hgb Conc 33.0 g/dL (32-36); Mean Corpuscular Volume 92.8 fL (81-99); Mean Platelet Vol. 9.1 fl (6.2-12.0); NRBC Flagged by Analyzer 0 % (0-5); Platelet Count 304 K/mm3 (150-450); RBC Distribution Width CV 12.2 % (11.6-14.6); RBC Distribution Width SD 42.6 fl (35.1-43.9); Red Blood Count 4.31 M/mm3 (4.2-5.4); White Blood Count 8.7 K/mm3 (4.4-11.0)
[2025-09-11] MEDS: DiphenhydrAMINE 50 MG/ML Syringe 25 MG IV (05:49)
--- NOTE | 2025-09-11 05:57 | EDS_ITS ---
HPI History of Present Illness Chief Complaint: Abd Pain Informant: patient Narrative Narrative: Patient is a 40-year-old female who reports a previous reconstructive abdominal surgery and mesh placement secondary to a hernia. She states that she has been taking her prescribed pain and nausea medication as directed from her surgeon. She states that despite doing this she has continued to have pain and bouts of nausea and vomiting. She does state that she recently helped her mother out by moving a few objects. She states she did not think that this was overly strenuous but since that time has had generalized pain. She states that she was in contact with her surgeon and there was concern that with her worsening symptoms she may have a incarcerated hernia or potential bowel obstruction and therefore was advised to come to the ER for evaluation [facility] Medical History Hypokalemia due to excessive gastrointestinal loss of potassium Postoperative lower abdominal pain Elevated BP without diagnosis of hypertension JAGJIT (obstructive sleep apnea) Morbid obesity Anxiety and depression Sinus tachycardia by electrocardiogram Acute narcotic withdrawal Intractable abdominal pain Partial small bowel obstruction GERD (gastroesophageal reflux disease) History of anxiety disorder Home Medications ?Medication ?Instructions ?Recorded ?Last Taken ?Type fluoxetine 40 mg capsule 20 mg PO DAILY 03/20/22 Unkn own History promethazine 25 mg tablet 25 mg PO TID PRN nausea and 09/08/22 Unknown Rx vomiting #20 tabs oxycodone 5 mg tablet 5 mg PO Q6H PRN PRN pain 01/01 Unknown History Allergy/AdvReac Type Severity Reaction Status Date / Time ketorolac tromethamine (From Allergy Shortness Verified 09/11/25 05:07 Toradol) of breath ondansetron HCl (From Zofran) Allergy Shortness Verified 09/11/25 05:07 of breath Surgical History History of History of hysterectomy History of laparoscopic appendectomy History of laparoscopic cholecystectomy Hx of ventral hernia repair Recurrent ventral hernia with incarceration Social History Smoking Status: Former smoker how long ago did patient quit smokin years ROS ROS ED Constitutional Constitutional ED: Denies chills or fever(s) ENT ENT ED: Denies sore throat Cardiovascular Cardiovascular: Denies chest pain Respiratory/Chest Respiratory/Chest: Denies cough or dyspnea Gastrointestinal Gastrointestinal: Reports abdominal pain, nausea and vomiting; Denies diarrhea Genitourinary Genitourinary ED: Denies dysuria Musculoskeletal Musculoskeletal: Denies myalgias Integumentary Denies rash Neurologic Neurologic: Denies headache(s) Hematologic/Lymphatic Hematologic/Lymphatic: Denies easy bleeding or easy bruising EXAM Physical Exam Const Vital Signs: 09/11/25 05:07 09/11/25 07:06 Temperature 97.7 F L Temperature Source Oral Pulse Rate 84 Respiratory Rate 16 18 Blood Pressure 132/83 H Blood Pressure Mean 99 Pulse Ox 99 98 Oxygen Delivery Method Room Air Room Air Positive well nourished and well developed General Appearance ED: well developed; Negative for pallor HEENT HEENT Narrative: Normocephalic atraumatic Eyes PERRL and EOMs intact bilaterally General Eye ED: Negative for scleral icterus Neck supple Neck Narrative: No nuchal rigidity or meningeal signs Resp normal respiratory effort and clear to auscultation bilaterally Cardio regular rate and regular rhythm Rate: other Other Details: Heart is regular rate and rhythm Radial and carotid pulses are equal and symmetric GI no masses GI Narrative: Abdomen is soft but slightly distended with hypoactive bowel sounds There is mild diffuse pain with palpation without voluntary guarding or rigidity or pulsatile mass No increased tympany noted No organomegaly noted No fluid wave present Auscultation: hypoactive bowel sounds Palpation: soft Extremity normal to inspection Neuro oriented x3, CN's II-XII intact bilaterally and no sensory deficits noted Sensorium / Orientation: alert Motor Exam: strength 5/5 throughout Psych mental status grossly normal Skin no rashes or lesions noted General Skin Exam: Negative for jaundice or pallor MDM MDM MDM Narrative Medical decision making narrative: Patient arrived to the ER with stable vitals. She has a longstanding history of abdominal pain but also has had previous surgeries and documented obstructions from scar tissue. With the report of recurrent nausea and vomiting and ge neralized abdominal pain there is concern that she has a potential incarcerated hernia or small bowel obstruction once again. Therefore basic labs were obtained as well as CT scan. Labs revealed no leukocytosis or left shift. Lactic acid is normal going against ischemia. The patient's lipase is elevated at 209 but she has been having bouts of vomiting which could cause a false elevation. The CT scan revealed a normal pancreas without findings of pseudocyst or pancreatitis. It also showed no findings for small bowel obstruction or incarcerated hernia or intestinal abscess or perforation. Therefore this time as the only lab abnormality is elevation to the lipase but the imaging study does not reveal signs of acute pancreatitis and the value is only elevated by approximately 100 points it would not classify as acute pancreatitis. Her vitals have remained stable and therefore I feel this is chronic pain from her previous abdominal issues and therefore with stable vitals and overall negative workup she can follow-up with her family doctor and/or general surgeon for repeat evaluation History & Record Review Discussion w/independent historian: Patient Lab Data Attestation: I reviewed the patient's lab results. Labs: Laboratory Results - last 24 hr 09/11/25 09/11/25 09/11/25 05:14 05:40 06:35 WBC 8.7 RBC 4.31 Hgb 13.2 Hct 40.0 MCV 92.8 MCH 30.6 MCHC 33.0 RDW Std Deviation 42.6 RDW Coeff of Juan 12.2 Plt Count 304 MPV 9.1 Immature Gran % (Auto) 0.800 Neut % (Auto) 64.3 Lymph % (Auto) 25.1 Kay % (Auto) 6.8 Eos % (Auto) 2.5 Baso % (Auto) 0.5 Absolute Neuts (auto) 5.6 Absolute Lymphs (auto) 2.19 Nucleated RBC % 0 Sodium Cancelled 134 Potassium Cancelled 4.9 Chloride Cancelled 103 Carbon Dioxide Cancelled 21.2 Anion Gap Cancelled 10 BUN Cancelled 13 Creatinine Cancelled 0.49 L Estim Creat Clear Calc 182.43 Est GFR (MDRD) Non-Af Cancelled 122 BUN/Creatinine Ratio Cancelled 26.3 H Glucose Cancelled 107 H Lactic Acid 1.2 Calcium Cancelled 8.7 Total Bilirubin Cancelled 0.21 Direct Bilirubin Cancelled < 0.08 AST Cancelled 25 ALT Cancelled 27 Alkaline Phosphatase Cancelled 42 Total Protein Cancelled 6.3 Albumin Cancelled 3.9 Globulin Cancelled 2.3 Lipase 209 H Radiography Diagnostic Testing: Clinical Impression(s) from Imaging Studies Abdomen/Pelvis CT 09/11/25 05:35 IMPRESSION: Prior cholecystectomy. Diffuse thickening of the stomach suggestive of gastritis. Right renal nonobstructing stone measuring 3 mm. Unchanged left renal hypodense lesion. Unchanged bilateral scattered simple renal cysts. Unchanged uterine leiomyoma measuring 3.5 cm. Unchanged bilateral tubal clips. Moderate amount of fecal residue in the large bowels with mild stercoral colitis. Diffuse colonic diverticulosis. Surgical changes of the anterior abdominal wall. Mild diffuse spondylosis. Reading Location: [place] [id number] Discharge Plan Triage Chief Complaint: Abd Pain ED Provider: Roman Sanders Dx/Rx/DC Orders Clinical Impression: Nonspecific abdominal pain, Nausea and vomiting, JAGJIT (obstructive sleep apnea), Gastritis Instructions: Abdominal Pain, ED Vomiting (Adult) Prescriptions: No Action fluoxetine 40 mg capsule 20 mg PO DAILY Patient Comments: take 1 capsule by mouth once daily promethazine 25 mg tablet 25 mg PO TID PRN (Reason: nausea and vomiting) Qty: 20 0RF oxycodone 5 mg tablet 5 mg PO Q6H PRN PRN (Reason: pain) Stand Alone Forms: ED Work / School Excuse Primary Care Provider: SHANNA COLE CNP Referrals: NOT,DEFINED [Non-Staff, None] Activity Restrictions/Additional Instructions: Your CT scan today revealed no sign of incarcerated hernia bowel obstruction acute pancreatitis or secondary findings of infection. Please continue your home medications as directed by your doctor and stay well-hydrated and return to the ER should you have any further concerns Print Language: Khmer Disposition Disposition: Home, Self Care
[2025-09-11 06:05] LABS: Lipase 209 U/L (13-75)
--- OUTSIDE RECORDS SUMMARY | 2025-09-11 06:36 | XMS RPT_ITS | CCD ---
Author Organization [facility] Care Team Providers Care Yarn Preparation Supervisor Name Role Phone Heber Marcial MD Unavailable Stk [facility], Emergency Physicians Unavailable U navailable Rio Trevino Admitting Unavailable Rio Trevino Attending Unavailable No Doctor Assigned, Nodr Primary Care Unavail able Gahlawat, Mike Unavailable Unavailable None, No PCP Unavailable Unavailable Gahlawat, Mike Unavailable Unavailable No, Physician Primary Care Provider Unavailabl e NO, PHYSICIAN Primary Care Unavailable CARLIN THOMAS Attending Unavailabl e NO, PHYSICIAN Primary Care Unavailable JOSE CURTIS Attending Unavailab le NO, PHYSICIAN Primary Care Unavailable Jose Barron MD Primary Care Provider Jose Dubose MD P Unavailable Jose Dubose MD P Unavailable [phone] Jose Barron MD Primary Care Provider [phone] Jose Dubose MD P Unavailable [phone] Jose Dubose MD P Unavailable Jose Barron MD Primary Care Provider Jero Gold Attending Unavailable Jose Barron Primary Care Unavailable Dung Shelby Attending Unavailable Jose Barron Primary Care Unavailable Michelle Orourke Attending Unavailable Jose Barron Primary Care Unavailable Jose Barron MD Primary Care Provider Jose Dubose MD Unavailable Jose Dubose MD Unavailable [phone] [facility], Other P [facility] Care Provider Jose Dubose MD Unavailable [phone] Required, No Pcp Unavailable Unavailable Donald Cotter Unavailable Unavailable Dr. Donald Cotter Attending Unava ilable Jasper RN, Sol Unavailable Unavailable MCDONALD, ALISA DO Admitting Unavailable MCDONALD, ALISA DO Primary Care Unavailable MCDONALDALISA DO Attending Unavailable TOM NIÑO DO Admitting Unavailable DIDTOM AGUSTIN DO Primary Care Unavailable DIDTOM AGUSTIN DO Attending Unavailable SHAD, SATISH E Primary Care Unavailable SHAD SATISH E Attending Unavailable SHAD, SATISH E Admitting Unavailable SHAD, SATISH E Primary Care Unavailable SHAD, SATISH E Attending Unavailable SHAD, SATISH E Admitting Unavailable DIDTOM AGUSTIN DO Admitting Unavailable DIDTOM AGUSTIN DO Primary Care Unavailable DIDTOM AGUSTIN DO Attending Unavailable MCDONALDALISA DO Admitting Unavailable MCDONALD, ALISA DO Primary Care Unavailable MCDONALDALISA DO Attending Unavailable TOM NIÑO DO Admitting Unavailable TOM NIÑO DO Primary Care Unavailable TOM NIÑO DO Attending Unavailable LI JARA MD Admitting Unavailable LI JARA MD Primary Care Unavailable LI JARA MD Attending Unavailable [facility]'s [facility], Other P rimary Care Provider HEATH FERNÁNDEZ Attending Unava ilable NO, PHYSICIAN Primary Care Unavailable NO, PHYSICIAN Primary Care Unavailable JONATHAN PRINCE Attending Unavailable MICHELLE GARZA Attending Unavailable JOSE CURTIS Referring Unavailable MICHELLE GARZA Attending Unavailable SELF, SELF Referring Unavailable [facility], OTHER P rimary Care Unavailable CONSULT, SURGERY - GENERAL (EMERGENT) Consulting Unavailable HEATH FERNÁNDEZ Referring Unavailable SUSAN MEDINA Attending Unavailable SUSAN MEDINA Admitting Unavailable SELF, SELF Referring Unavailable TOM KOEHLER Attending Unavailable [facility], OTHER P rimary Care Unavailable Unavailable Primary Care Provider Unavailabl e Inc, [facility] Primary Care Provider Unav ailable JOSE BARRON Primary Care Unavailable SALLY GONZALEZ Attending Unavailable JOSE BARRON Primary Care Unavailable SALLY GONZALEZ Attending Unavailable JOSE BARRON Primary Care Unavailable JOSE BARRON Primary Care Unavailable SALLY GONZALEZ Attending Unavailable JULIETA ANDRADE Admitting Unavailable GEMMA GRANADO Attending Unavailable JOSE BARRON Primary Care Unavailable SONYA CHERRY Referring Unavailable JOSE BARRON Primary Care Unavailable JOSE BARRON Primary Care Unavailable SALLY GONZALEZ Attending Unavailable JOSE BARRON Primary Care Unavailable SALLY GONZALEZ Attending Unavailable JOSE BARRON Primary Care Unavailable SALLY GONZALEZ Attending Unavailable Serafin Taylor DO Unavailable [facility] Primary Care Provider Unav ailable [facility] Primary Care Provider Unav ailable Anderson DODD, Jose Langford Primary Care Provider [phone] [employer] CHEMICAL OPERATIONS SPECIALIST.WIRE INSERTER, Nanci Primary Care Provider Jose Barron MD Primary Care Provider Ravinder ODDD, Otoniel [place] Unavailable Elif Alas MD Unavailable NANCI DIAZ Attending Unavailable FEY, NANCI Primary Care Unavailable OTONIEL CASTELLON Attending Unavail able FEY, NANCI Primary Care Unavailable FEYMARKUSA Attending Unavailable FEY, NANCI Primary Care Unavailable FEY, NANCI Primary Care Unavailable JUAN DAVID BOSS Attending Unavailable FEYMARKUSA Attending Unavailable FEY, NANCI Primary Care Unavailable JOSE BARRON MD Primary Care Physician [phone] JOSE BARRON MD Primary Care Unavailable ZA BURNHAM Attending Unavailable HEATH FLORES Attending Unavailable FEY, NANCI Primary Care Unavailable TASH CERVANTES Attending Unavailable ZANA AYALA Admitting Unavailable ZANA AYALA Attending Unavailable MARICEL ZAMORA Referring Unavailable PETE LAURENT Attending Unavailable DONALD MUELLER JR Attending Unavailab SERAFIN Fuentes Attending Unavailable SERAFIN TAYLOR Admitting Unavailable GRAY GARCIA Consulting Unavailable ALIX GALINDO Attending Unavailable CODY JETER Admitting Unavailable CELINA BARAJAS Attending Unavailable BRENT BLANCO Admitting Unavailable SYBIL KUMAR Referring Unavailable ZA GUERRIER Referring Unavailable CHEY, ZA Attending Unavailable MELLERT, SERAFIN Attending Unavailable MELLERT, SERAFIN Referring Unavailable MELLERT, SERAFIN Attending Unavailable CARA, TARA Referring Unavailable CARA, TARA Attending Unavailable CARA, TARA Referring Unavailable CHEY, ZA Referring Unavailable CHEY, ZA Attending Unavailable MARTELL, CELINA A Attending Unavailable MARTELL, CELINA A Referring Unavailable MELLERT, SERAFIN Consulting Unavailable RIVERA, RALPH Admitting Unavailable RIVERA, RALPH Attending Unavailable MELLERT, SERAFIN Attending Unavailable MELLERT, SERAFIN Attending Unavailable MELLERT, SERAFIN Attending Unavailable KATIRATru, REGINA Attending Unavailable CHEY, ZA Referring Unavailable CHEY, ZA Attending Unavailable MELLERT, SERAFIN Attending Unavailable CORKY PLUMMER Attending Unavailable Allergies Allergy Classification Reported Allergen(s) Allergy Type Date of Onset Reaction(s) Facility NSAIDs (1 source) Ketorolac Drug Allergy 03-17-20 21 [facility] Work Phone: Ondansetron (5 sources) Ondansetron Drug Allergy 02-10-20 11 Shortness of breath, [facility] (5 sources) ketorolac; Translations: [Toradol] drug allergy 02-10-20 11 [facility] Work Phone: (6 sources) ondansetron; Translations: [Zofran] drug allergy 02-10-20 11 [facility] Work Phone: (20 sources) Ketorolac; Translations: [KETOROLAC] Drug Allergy 02-10-20 11 Hives, Shortness of Breath [facility] Repository Comment on above: can take ibuprofen p er pt (9 sources) Ondansetron; Translations: [ONDANSETRON HCL] Drug Allergy 03-17-20 21 Shortness of breath [facility] (20 sources) Ondansetron; Translations: [ONDANSETRON HCL (PF)] Drug Allergy 07-24-20 13 Hives, Shortness of Breath [facility] Work Phone: (6 sources) Ketorolac; Translations: [ketorolac tromethamine] Drug Allergy 09-14-20 21 [facility] (20 sources) Ondansetron Drug Allergy 02-10-20 11 Hives, Dyspnea, Shortness of breath [facility] (20 sources) Seasonal allergy; Translations: [SEASONAL ALLERGIES] Allergy to substance 05-04-20 Itching, Other: See Comments [facility] (20 sources) Seasonal allergy Environmental allergy 05-04-20 24 Itching, Other [facility] Medications Current Medications Medication Drug Class(es) Dates Sig (Normalized) Sig (Original) amoxicillin 875 mg oral tablet (1 source) Penicillin-class Antibacterial Start: 10-29-2022 End: 11-08-2022 take 1 tablet by mouth twice daily amoxicillin (AMOXIL) 875 mg tablet Indications: Toothache Take 1 tablet by mouth twice daily for 10 days. 20 tablet 0 10/29/2022 11/08/2022 Active Comment on above: Take 1 tablet by [facility] twice daily for 10 days. Centrum Adults oral tablet (1 source) Start: 04-18-2019 take 1 tablet by mouth once daily Centrum Adults oral tablet Dose = 1 tab(s), Oral, qDay, 0 Refill(s) Start Date: 04/18/19 Status: Ordered Medication Dispense Status: Completed Total Allowed Fills: 1 Fills Dispensed: 0 FLUoxetine 20 mg oral capsule (20 sources) Serotonin Reuptake Inhibitor Start: 07-22-2025 take 1 capsule by mouth once daily FLUoxetine (PROZAC) 20 mg capsule Indications: Moderate episode of recurrent major depressive disorder (HCC) Take 1 capsule by mouth once daily. Patient should start on July 22, 2025. 90 capsule 1 07/22/2025 Active Start: 06-24-2025 take 1 capsule by [facility] once daily FLUoxetine (PROZAC) 10 mg capsule Indications: major depressive disorder Take 1 capsule by mouth once daily. 30 capsule 06/24/2025 Active Start: 10-20-2023 End: 10-20-2023 take 80 mg by mouth once daily 80 mg, Oral, Daily, [facility] dose on Bella 10/20/23 at 0800 Start: 09-14-2023 End: 09-15-2023 take 80 mg by mouth once daily 80 mg, Oral, Daily, [facility]ir [facility] dose on 09/14/23 at 0800 Start: 11-23-2022 End: 07-10-2025 take 1 capsule by mouth once daily FLUoxetine (PROzac) 20 MG capsule Take 20 mg by mouth daily. 11/23/2022 Active Start: 05-31-2022 End: 05-04-2024 take 2 capsules by mouth once daily FLUoxetine (PROZAC) 40 mg capsule Take 2 capsules by mouth once daily. Take with 20 mg dose. 60 capsule 1 08/31/2023 Active Start: 03-20-2022 End: 04-30-2022 take 40 mg by mouth once daily Fluoxetine Active 40 MG PO DAILY March 19, 2022 11:00pm Start: 01-08-2022 End: 02-07-2022 take 40 mg by mouth once daily Fluoxetine Active 40 MG PO DAILY March 20, 2022 11:39pm Start: 02-09-2021 End: 01-08-2022 take 1 capsule by mouth once daily FLUoxetine (PROZAC) 20 mg capsule Take 1 capsule by mouth once daily. 30 capsule 1 12/31/2021 01/08/2022 Discontinued Start: 04-01-2020 End: 06-18-2021 take 40 mg by mouth once daily Fluoxetine Discontinued 40 MG PO DAILY March 31, 2020 11:00pm June 18, 2021 8:07am take 2 capsules by m outh once daily in the morning FLUoxetine 20 mg oral capsule ; 2 cap(s) orally once a day (in the morning) Quantity: 0 Refills: 0 Ordered: 06-Aug-2020 Claudine Yates Generic Substitution Allowed PROzac CAPS Refi lls: 0 Active Comment on above: Take 1 capsule by mo uth once daily. take 1 capsule by mo uth once daily Take 2 capsules by m outh once daily. Take with 20 mg dose. Take 2 capsules by m outh once daily. Take 1 capsule by mo uth once daily. Take with 2 capsules of the 40 mg dose. multivitamin (THERAGRAN) per tablet (2 sources) take 1 tablet by mouth once daily multivitamin (THERAGRAN) per tablet Take 1 tablet by mouth daily . 0 Active naloxone 4 mg/actuation nasal spray (NARCAN) (20 sources) Start: naloxone 4 mg/actuation nasal spray (NARCAN) Indications: Opiate use Use 1 spray in one nostril as needed for overdose. May repeat every 2 to 3 min in alternating nostrils until medical assistance is available 1 Each 05/18/2024 Active Start: 08-09-2024 naloxone 4 mg/ actuation nasal spray (NARCAN) Indications: Opiate use Use 1 spray in one nostril as needed for overdose. May repeat every 2 to 3 min in alternating nostrils until medical assistance is available 1 Each 0 05/18/2024 Active pantoprazole 40 mg delayed release oral tablet (2 sources) Proton Pump Inhibitor Start: 07-01-2023 take 1 tablet by mouth once daily Pantoprazole [address] tablet DR Indications: GERD Take 1 tablet by mouth daily. 30 tablet 0 07/01/2023 Active Start: 06-30-2023 End: 06-30-2023 Pantoprazole (PROTONIX) tabl et DR 40 mg penicillin v potassium 500 mg oral tablet (1 source) Start: 03-30-2022 End: 04-09-2022 take 1 tablet by mouth four times daily penicillin V potassium (V-CILLIN, VEETIDS) 500 mg tablet Indications: Dental infection Take 1 tablet by mouth four times daily for 10 days. 40 tablet 0 03/30/2022 04/09/2022 Active Comment on above: Take 1 tablet by luis four times daily for 10 days. phentermine hydrochloride 37.5 mg oral tablet (20 sources) Sympathomimetic Amine Anorectic Start: 06-24-2025 End: 07-24-2025 take 1 tablet by mouth once daily Phentermine HCl 37.5 mg tablet Indications: Obesity, Class III, BMI 40-49.9 (morbid obesity) (HCC) Take 1 tablet by mouth once daily for 30 days. 30 tablet 06/24/2025 07/24/2025 Active Start: 01-30-2024 End: 09-28-2024 take 1 tablet by mouth once daily before breakfast phentermine (Adipex-P) 37.5 MG tablet Indications: BMI 40.0-44.9, adult (HCC) Take 1 tablet (37.5 mg) by mouth every morning (before breakfast). 30 tablet 04/03/2024 09/28/2024 Discontinued (Therapy completed) Completed/Discontinued Medications Medication Drug Class(es) Dates Sig (Normalized) Sig (Original) (None) (3 sources) Start: 07-21-2013 End: 08-01-2013 (None) Discontinued July 21, 2013 8:55am August 01, 2013 4:50pm Start: 07-21-2013 End: 08-01-2013 (None) Discontinued July 20, 2013 11:00pm August 01, 2013 3:50pm Start: 07-21-2013 End: 08-01-2013 (None) Discontinued July 21, 2013 12:00am August 01, 2013 4:50pm acetaminophen 500 mg oral ta blet (20 sources) Start: 07-30-2025 End: 07-30-2025 1,000 mg, Oral, Once, On Tue07/30/25 at 1910, For 1 dose, Maximum dose of acetaminophen is 4000 mg from all sources in 24 hours. Start: 07-09-2025 End: 07-10-2025 take 1 tablet by mouth every six hours as needed for pain and fever acetaminophen (Tylenol) tablet 650 mg Start: 05-20-2025 End: 05-24-2025 take 1000 mg intravenously every six hours as needed 1,000 mg, IntraVENous, at 400 mL/hr, Administer over 15 Minutes, Every 6 hours PRN, pain, Starting on Tue05/20/25 at 2349, For 6 doses Start: 05-20-2025 End: 05-24-2025 take 1 tablet by mouth every six hours as needed for pain and fever acetaminophen (Tylenol) tablet 650 mg Start: 05-10-2025 End: 05-11-2025 1,000 mg, IntraVENous, at 40 0 mL/hr, Administer over 15 Minutes, Every 6 hours scheduled (4 times per day), First dose on Tue05/10/25 at 1345 Start: 02-21-2025 End: 02-22-2025 take 1 tablet by mouth every six hours as needed for pain and fever acetaminophen (Tylenol) tablet 650 mg Start: 11-20-2024 End: 11-20-2024 1,000 mg, Oral, Once, On Tue11/20/24 at 1045, For 1 dose, Maximum dose of acetaminophen is 4000 mg from all sources in 24 hours. Start: 11-20-2024 End: 11-20-2024 1,000 mg, Oral, Once, On Tue11/20/24 at 1045, For 1 dose, Maximum dose of acetaminophen is 4000 mg from all sources in 24 hours. Start: 08-08-2024 End: 08-13-2024 take 1 tablet by mouth every six hours 1,000 mg, Oral, Every 6 hours, First dose (after last modification) on Tue08/08/24 at 0800, Phase II/On Unit Start: 04-24-2024 End: 04-26-2024 1,000 mg, IntraVENous, at 40 0 mL/hr, Administer over 15 Minutes, Every 6 hours scheduled (4 times per day), First dose on Tue04/24/24 at 0625 Start: 04-10-2024 End: 04-13-2024 take 1000 mg intravenously every eight hours 1,000 mg, IntraVENous, at 400 mL/hr, Administer over 15 Minutes, Every 8 hours, First dose on Tue04/10/24 at 1700, Drug Name: wade, Form: suspension, Length of Therapy: 2 days, How soon needed? (normally 72 hrs needed to procure): 0-24 hrs, Reason for Non-Formulary: strict NPO, SBO Start: 10-19-2023 End: 10-20-2023 take 1 tablet by mouth every six hours as needed for pain and fever acetaminophen (Tylenol) tablet 650 mg Start: 09-13-2023 End: 09-15-2023 take 1 tablet by mouth every six hours as needed for pain and fever acetaminophen (Tylenol) tablet 650 mg Start: 06-30-2023 End: 05-24-2025 take 2 tablets by mouth every six hours as needed for pain and pain and headache and fever acetaminophen (Tylenol) 325 MG tablet Take 650 mg by mouth every 6 hours as needed for mild pain (1-3), moderate pain (4-6), headaches or fever. 06/30/2023 05/24/2025 Discontinued (Stop taking at discharge) Start: 06-28-2023 End: 06-30-2023 take 1 tablet by mouth every six hours as needed Acetaminophen (TYLENOL) tablet 650 mg Start: 06-11-2019 End: 11-10-2021 take 3 tablets by mouth every six hours acetaminophen (TYLENOL) 325 mg tablet Take 3 tablets by mouth every 6 hours. 06/11/2019 11/10/2021 Discontinued (Discontinued by Patient) take 2 tablets by [facility] every six hours as needed acetaminophen 500 mg oral tablet ; 2 tab(s) orally every 6 hours, As Needed Quantity: 0 Refills: 0 Ordered: 28-Mar-2020 Claudine Yates Generic Substitution Allowed acetaminophen 325 mg / HYDROcodone bitartrate 5 mg oral tablet (13 sources) Opioid Agonist Start: 07-09-2025 End: 07-10-2025 take 1 tablet by mouth every six hours as needed for pain 1 tablet, Oral, Every 6 hours PRN, moderate pain (4-6), Starting on Tue07/09/25 at 0409, Maximum dose of acetaminophen is 4000 mg from all sources in 24 hours. Start: 02-25-2019 End: 02-28-2019 take 1 tablet by mouth every six hours as needed Hydrocodone-Acetaminophen Discontinued 1 TABLET PO EVERY 6 HOURS NEEDED 10 February 24, 2019 11:00pm February 27, 2019 11:06pm Start: 02-12-2019 End: 02-12-2019 take 1 tablet by mouth every eight hours Hydrocodone-Acetaminophen Discontinued 1 TABLET PO Q8H February 12, 2019 February 12, 2019 12:55pm Start: 02-12-2019 End: 02-12-2019 take 1 tablet by mouth every eight hours Hydrocodone-Acetaminophen Discontinued 1 TABLET PO Q8H February 12, 2019 February 12, 2019 1:55pm Start: 02-12-2019 End: 02-12-2019 take 1 tablet by mouth every eight hours Hydrocodone-Acetaminophen Discontinued 1 TABLET PO Q8H February 12, 2019 9:08am February 12, 2019 1:55pm Start: 08-01-2014 End: 09-13-2014 take 1 tablet by mouth every four hours as needed Hydrocodone-Acetaminophen Discontinued 1 - 2 TABLET PO EVERY 4 HOURS NEEDED July 31, 2014 11:00pm September 13, 2014 9:38am Start: 10-13-2011 End: 10-26-2011 take 1 tablet by mouth three times daily as needed for pain VICODIN 5-500 MG TABS One tablet by mout h three times daily as needed moderate-severe pain, avoid driving or operating machine under the influence of medication. HYDROCODONE-ACETAMINOPHEN [id number] Tuyet Elizabeth MD Start: 10-13-2011 take 1 tablet by luis th three times daily as needed for pain VICODIN 5-500 MG TABS One tablet by mout h three times daily as needed moderate-severe pain, avoid driving or operating machine under the influence of medication. HYDROCODONE-ACETAMINOPHEN [id number] Tuyet Elizabeth MD acetaminophen 325 mg / oxyCODONE hydrochloride 5 mg oral tablet (20 sources) Opioid Agonist Start: 05-24-2025 End: 06-14-2025 take 1 tablet by mouth every eight hours as needed for pain oxyCODONE-acetaminophen (Percocet) 5-325 MG tablet Indications: Periumbilical abdominal pain Take 1 tablet by mouth every 8 hours as needed for moderate pain (4-6) or severe pain (7-10) for up to 3 days. 9 tablet 05/24/2025 06/14/2025 Discontinued (Therapy completed) Start: 04-29-2025 End: 05-06-2025 take 1 tablet by mouth every eight hours as needed for pain oxyCODONE-acetaminophen (PERCOCET) 5-325 mg tablet Indications: Abdominal adhesions , Generalized abdominal pain Take 1 tablet by mouth every 8 hours as needed for pain for up to 7 days. 21 tablet 04/29/2025 05/06/2025 Active Start: 11-23-2024 End: 11-23-2024 1 tablet, Oral, Once, On Tue11/23/24 at 1230, For 1 dose, Maximum dose of acetaminophen is 4000 mg from all sources in 24 hours. Start: 11-23-2024 End: 11-23-2024 1 tablet, Oral, Once, On Tue11/23/24 at 1230, For 1 dose, Maximum dose of acetaminophen is 4000 mg from all sources in 24 hours. Start: 10-27-2024 End: 11-26-2024 take 1 tablet by mouth once daily at bedtime oxyCODONE-acetaminophen (PERCOCET) 5-325 mg tablet Indications: Abdominal wall hernia Take 1 tablet by mouth daily at bedtime for 30 days. Patient should start on October 27, 2024. 30 tablet 10/27/2024 11/26/2024 Active Start: 10-05-2024 End: 11-28-2024 take 1 tablet by mouth every six hours as needed for pain oxyCODONE-acetaminophen (Percocet) 5-325 MG tablet Indications: Generalized abdominal pain , Abdominal wall seroma, initial encounter Take 1 tablet by mouth every 6 hours as needed for severe pain (7-10) for up to 5 days. 6 tablet 11/23/2024 11/28/2024 Active Start: 09-21-2024 End: 10-26-2024 take 1 tablet by mouth every eight hours as needed for pain and pain, then take 1 tablet by mouth every twelve hours as needed for pain and pain, then take 1 tablet by mouth once daily as needed for pain and pain oxyCODONE-acetaminophen (PERCOCET) 5-325 mg tablet Indications: Abdominal wall hernia Take 1 tablet by mouth every 8 hours as needed for pain for 14 days, THEN 1 tablet every 12 hours as needed for pain for 14 days, THEN 1 tablet once daily for 7 days. 77 tablet 09/21/2024 10/24/2024 Discontinued Start: 08-13-2024 End: 08-13-2024 1 tablet, Oral, Once, On 08/13/24 at 1015, For 1 dose, Maximum dose of acetaminophen is 4000 mg from all sources in 24 hours. Start: 08-13-2024 End: 08-13-2024 take 1 tablet by mouth every four hours as needed for pain oxyCODONE-acetaminophen (Percocet) 5-325 MG per tablet 1 tablet Start: 05-04-2024 End: 09-24-2024 take 1 tablet by mouth every four hours as needed for pain and pain, then take 1 tablet by mouth every six hours as needed for pain and pain oxyCODONE-acetaminophen (PERCOCET) 5-325 mg tablet Indications: Abdominal wall hernia Take 1 tablet by mouth every 4 hours as needed for pain for 14 days, THEN 1 tablet every 6 hours as needed for pain for up to 14 days. 140 tablet 08/27/2024 09/21/2024 Discontinued Start: 04-15-2024 End: 04-15-2024 1 tablet, Oral, Once, On 04/15/24 at 1245, For 1 dose, Maximum dose of acetaminophen is 4000 mg from all sources in 24 hours. Start: 12-29-2023 End: 01-01-2024 take 1 tablet by mouth every six hours as needed for pain oxyCODONE-acetaminophen (Percocet) 5-325 MG tablet Indications: Generalized abdominal pain Take 1 tablet by mouth every 6 hours as needed for severe pain (7-10) for up to 3 days. 5 tablet 0 12/29/2023 01/01/2024 Active Start: 10-20-2023 End: 10-23-2023 take 1 tablet by mouth every six hours as needed for pain oxyCODONE-acetaminophen (Percocet) 5-325 MG tablet Indications: Ventral hernia with obstruction Take 1 tablet by mouth every 6 hours as needed for severe pain (7-10) for up to 3 days. 12 tablet 0 10/20/2023 10/23/2023 Active Start: 09-15-2023 End: 09-20-2023 take 1 tablet by mouth every eight hours as needed for pain oxyCODONE-acetaminophen (Percocet) 5-325 MG tablet Indications: Chronic abdominal pain Take 1 tablet by mouth every 8 hours as needed for severe pain (7-10) for up to 5 days. 10 tablet 0 09/15/2023 09/20/2023 Active Start: 06-23-2021 End: 06-26-2021 take 1-2 tablets by mouth at bedtime as needed Oxycodone-Acetaminophen (Percocet) 2.5-325 mg tablet Discontinued 0 PO AT BEDTIME 6 3 June 23, 2021 June 25, 2021 11:01pm 1-2 tablets PO at bedtime PRN; Start: 03-17-2020 End: 03-20-2020 take 1 tablet by mouth every six hours as needed Oxycodone-Acetaminophen Discontinued 1 TABLET PO EVERY 6 HOURS NEEDED 12 March 17, 2020 March 19, 2020 11:02pm Start: 08-12-2019 End: 08-19-2019 take 1 tablet by mouth every six hours as needed Oxycodone-Acetaminophen Discontinued 1 TABLET PO EVERY 6 HOURS NEEDED 12 3 August 12, 2019 August 19, 2019 12:10am Start: 06-23-2019 End: 06-30-2019 take 1 tablet by mouth every six hours as needed Oxycodone-Acetaminophen Discontinued 1 TABLET PO EVERY 6 HOURS NEEDED 14 June 23, 2019 June 29, 2019 11:10pm Start: 12-21-2018 End: 12-24-2018 take 1 tablet by mouth every six hours as needed Oxycodone-Acetaminophen Discontinued 1 TABLET PO EVERY 6 HOURS NEEDED 6 3 December 20, 2018 11:00pm December 23, 2018 11:10pm Start: 10-11-2018 End: 10-18-2018 take 1 tablet by mouth every six hours Oxycodone-Acetaminophen Discontinued 1 TABLET PO EVERY 6 HOURS 56 October 11, 2018 12:00am October 18, 2018 12:09am Start: 09-30-2018 End: 10-03-2018 take 1 tablet by mouth every six hours as needed Oxycodone-Acetaminophen Discontinued 1 TABLET PO EVERY 6 HOURS NEEDED 12 September 30, 2018 12:00am October 03, 2018 12:09am Start: 09-27-2018 End: 10-04-2018 take 1 tablet by mouth every four hours as needed Oxycodone-Acetaminophen Discontinued 1 - 2 TABLET PO EVERY 4 HOURS NEEDED 50 September 27, 2018 12:00am October 04, 2018 12:07am Start: 07-27-2018 End: 07-31-2018 take 1-2 tablets by mouth every six hours as needed Oxycodone-Acetaminophen Discontinued 1 - 2 TABLET PO EVERY 6 HOURS NEEDED 01 02July 26, 2018 11:00pm July 30, 2018 11:09pm take with food and stool softener Start: 07-12-2018 End: 07-22-2018 take 1 tablet by mouth every six hours as needed Oxycodone-Acetaminophen Discontinued 1 TABLET PO EVERY 6 HOURS NEEDED 26 02July 16, 2018 11:00pm July 21, 2018 11:11pm Start: 08-11-2013 End: 09-25-2013 take 1 tablet by mouth every four hours as needed Oxycodone-Acetaminophen Discontinued 1 TABLET PO EVERY 4 HOURS NEEDED August 15, 2013 12:00am September 25, 2013 8:23pm Start: 07-23-2013 End: 08-01-2013 take 1 tablet by mouth every six hours as needed Oxycodone-Acetaminophen Discontinued 1 - 2 TABLET PO EVERY 6 HOURS NEEDED July 22, 2013 11:00pm August 01, 2013 3:50pm Start: 07-21-2013 End: 08-01-2013 take 1 tablet by mouth every four hours as needed Oxycodone-Acetaminophen Discontinued 1 - 2 TABLET PO EVERY 4 HOURS NEEDED July 20, 2013 11:00pm August 01, 2013 3:50pm [id number] actuat albuterol 0.09 mg/actuat metered dose inhaler (20 sources) beta2-Adrenergic Agonist Start: 11-22-2023 End: 05-24-2025 take 2 puff(s) by inhalation every four hours as needed for wheezing albuterol 108 (90 Base) MCG/ACT inhaler Inhale 2 puffs every 4 hours as needed for wheezing or shortness of breath. 11/22/2023 05/24/2025 Discontinued (Stop taking at discharge) Start: 02-11-2020 End: 11-10-2021 take 2 puff(s) by inhalation every four hours as needed albuterol HFA (PROVENTIL HFA, VENTOLIN HFA) 90 mcg/actuation inhaler Inhale 2 Puffs as instructed every 4 hours as needed. 1 Inhaler 02/11/2020 11/10/2021 Discontinued (Discontinued by Patient) Start: 11-09-2011 PROVENTIL HFA 108 (90 Base) MCG/ACT AERS 2 puff every 4hr as needed dyspnea ALBUTEROL SULFATE [id number] Tuyet Elizabeth MD Start: 11-09-2011 End: 07-31-2013 PROVENTIL HFA 108 (90 Base) MCG/ACT AERS 2 puff every 4hr as needed dyspnea ALBUTEROL SULFATE [id number] Vadim Donnelly take 2 puff(s) by in halation every four hours as needed albuterol 90 mcg/inh inhalation aerosol ; 2 puff(s) inhaled every 4 hours, As Needed Quantity: 0 Refills: 0 Ordered: 20-Feb-2020 Satish Mello Generic Substitution Allowed albuterol 0.833 mg/ml / ipratropium bromide 0.167 mg/ml inhalation solution (4 sources) Anticholinergic, beta2-Adrenergic Agonist Start: 05-20-2025 End: 05-24-2025 Start: 08-09-2024 End: 08-13-2024 3 mL, Nebulization, 3 times daily PRN, wheezing, Starting on Bella 08/09/24 at 1030, Phase II/On Unit 24 hr ALPRAZolam 0.5 mg extended release oral tablet (20 sources) Benzodiazepine Start: 08-13-2024 End: 09-28-2024 take 1 tablet by mouth once daily as needed for anxiety ALPRAZolam XR (Xanax XR) 0.5 MG 24 hr tablet Indications: Ventral hernia without obstruction or gangrene Take 1 tablet (0.5 mg) by mouth Daily as needed for anxiety (Use to slowly ween off of consistent use while in hospital) for up to 5 days. Do not crush, chew, or split. 5 tablet 08/13/2024 09/28/2024 Discontinued (Therapy completed) Start: 08-10-2024 End: 08-13-2024 take 0.5 mg by mouth twice daily as needed for anxiety 0.5 mg, Oral, 2 times daily PRN, anxiety, Starting on Tue08/10/24 at 0221 Start: 08-08-2024 End: 08-10-2024 take 0.5 mg by mouth once 0.5 mg, Oral, Once, On Tue10/10/23 at 1815, For 1 dose Start: 09-15-2011 End: 08-13-2024 take 1 tablet by mouth once daily as needed ALPRAZOLAM 1 MG TABS One tablet by mouth daily as needed panic attack, avoid driving or operating machine under the influence of medication. ALPRAZOLAM [id number] Tuyet Elizabeth MD amitriptyline hydrochloride 25 mg oral tablet (2 sources) Tricyclic Antidepressant Start: 11-09-2011 End: 07-31-2013 take 1 tablet by mouth once daily AMITRIPTYLINE HCL 25 MG TABS One tablet by mouth daily every night AMITRIPTYLINE HCL [id number] Vadim Donnelly AMOXICILLIN-POT CLAVULANATE (2 sources) Penicillin-class Antibacterial Start: 11-09-2011 take 1 tablet by mouth twice daily AUGMENTIN 875-125 MG TABS One tablet by mouth twice daily AMOXICILLIN-POT CLAVULANATE [id number] Tuyet Elizabeth MD Start: 11-09-2011 End: 07-31-2013 take 1 tablet by mouth twice daily AUGMENTIN 875-125 MG TABS One tablet by mouth twice daily AMOXICILLIN-POT CLAVULANATE [id number] Vadim Donnelly ARIPiprazole 10 mg oral tablet (3 sources) Atypical Antipsychotic Start: 10-13-2011 End: 07-31-2013 take 1 tablet by mouth once daily ABILIFY 10 MG TABS One tablet by mouth daily ARIPIPRAZOLE [id number] Tuyet Elizabeth MD Start: 09-15-2011 take 1 tablet by luis th once daily ABILIFY 5 MG TABS One tablet by mouth daily ARIPIPRAZOLE [id number] Tuyet Elizabeth MD azithromycin 250 mg oral tablet (4 sources) Macrolide Antimicrobial Start: 10-26-2011 End: 11-09-2011 take 2 tablets by mouth once daily, then take 1 tablet by mouth once daily, then take 2-5 tablets by mouth AZITHROMYCIN 250 MG TABS two tablets by mouth on day one, and one tablets daily one day 2-5 AZITHROMYCIN [id number] Tuyet Elizabeth MD Start: 09-15-2011 End: 09-20-2011 take 1 tablet by mouth once daily ZITHROMAX 500 MG TABS One tablet by mouth daily AZITHROMYCIN [id number] Tuyet Elizabeth MD Start: 02-09-2011 End: 02-14-2011 ZITHROMAX 250 MG TABS Take t wo (2 ) tablets day one, then one (1) tablet a day for four (4) more days AZITHROMYCIN [id number] Cristine Medina PAMilagros barium sulfate (E-Z-Paque) 96 % suspension 352 g (2 sources) Start: 12-22-2023 End: 12-22-2023 barium sulfate (E-Z-Paque) 96 % suspension 352 g benzonatate 100 mg oral capsule (2 sources) Non-narcotic Antitussive Start: 05-16-2021 End: 11-10-2021 take 1 capsule by mouth every eight hours as needed benzonatate (TESSALON PERLES) 100 mg capsule Take 1 capsule by mouth three times daily as needed for cough. 20 capsule 05/16/2021 11/10/2021 Discontinued (Discontinued by Patient) Start: 08-05-2020 End: 11-10-2021 take 1 capsule by mouth every eight hours as needed Benzonatate 200 mg capsule Take 1 capsule by mouth three times daily as needed. 45 capsule 1 08/05/2020 11/10/2021 Discontinued (Discontinued by Patient) bisacodyl 10 mg rectal suppository (6 sources) Stimulant Laxative Start: 08-09-2024 End: 08-13-2024 take 10 mg rectal route once daily 10 mg, Rectal, Daily, First dose on Tue08/09/24 at 1430 Start: 04-24-2024 End: 04-26-2024 take 10 mg rectal route once daily 10 mg, Rectal, Daily, First dose on Tue04/24/24 at 0900 Start: 04-11-2024 End: 04-13-2024 take 10 mg rectal route once daily 10 mg, Rectal, Daily, First dose on Tue04/11/24 at 0900 busPIRone hydrochloride 15 mg oral tablet (20 sources) Start: 10-20-2023 End: 10-20-2023 take 30 mg by mouth twice daily 30 mg, Oral, 2 times daily, First dose on Tue10/20/23 at 0900 Start: 09-13-2023 End: 09-15-2023 take 30 mg by mouth twice daily 30 mg, Oral, 2 times d aily, First dose on Tue09/13/23 at 2300 Start: 12-22-2022 take 0.5 tablet by m outh once daily in the morning, then take 1 tablet by mouth once daily in the evening busPIRone HCl 30 MG tablet take 1/2 tablet by mouth every morning and 1 tablet by mouth every evening 0 12/22/2022 Active Start: 07-28-2022 End: 11-23-2022 take 0.5 tablet by mouth once daily in the morning, then take 1 tablet by mouth once daily in the evening busPIRone HCl 30 mg tablet take 1/2 tablet by mouth every morning and 1 tablet every evening 45 tablet 1 10/29/2022 11/23/2022 Discontinued Start: 06-23-2022 End: 01-06-2024 take 1 tablet by mouth in the morning busPIRone (Buspar) 30 MG tablet Take 30 mg by mouth in the morning and 30 mg in the evening. 0 12/22/2022 01/06/2024 Discontinued (Therapy completed) Start: 05-31-2022 End: 06-23-2022 take 0.5 tablet by mouth once daily in the morning, then take 1 tablet by mouth once daily in the evening busPIRone 30 mg tablet Take 0.5 tablets by mouth every morning AND 1 tablet every evening. 45 tablet 1 05/31/2022 06/23/2022 Discontinued Start: 03-20-2022 End: 05-21-2022 take 1 tablet by mouth three times daily busPIRone (BUSPAR) 15 mg tablet Take 1 tablet by mouth three times daily. 90 tablet 1 04/21/2022 05/21/2022 Active Start: 12-17-2021 End: 01-08-2022 take 1 tablet by mouth three times daily busPIRone (BUSPAR) 10 mg tablet Take 1 tablet by mouth three times daily. 90 tablet 0 12/17/2021 01/08/2022 Discontinued Start: 02-09-2021 End: 02-07-2022 take 1 tablet by mouth three times daily busPIRone (BUSPAR) 15 mg tablet Take 1 tablet by mouth three times daily. 90 tablet 1 01/08/2022 02/07/2022 Active Start: 04-17-2020 End: 11-10-2021 busPIRone (BUSPAR) 15 mg tab let Take 1/2 tab twice a day for 2 weeks then go to taking one tab twice a day. 60 tablet 5 04/17/2020 11/10/2021 Discontinued (Discontinued by Patient) take 1 tablet by luis th twice daily as needed busPIRone 15 mg oral tablet ; 1 tab(s) orally 2 times a day, As Needed Quantity: 0 Refills: 0 Ordered: 06-Aug-2020 Claudine Yates Generic Substitution Allowed Comment on above: Take 1 tablet by luis th three times daily. Take 1 tablet by luis th twice daily. Take 0.5 tablets by mouth every morning AND 1 tablet every evening. take 1/2 tablet by m outh every morning and 1 tablet every evening Take 1 tablet by luis th twice daily. take 1/2 tablet by mouth every morning and 1 tablet every evening Take 30 mg by mouth twice daily. Take 1 tablet by luis th two times a day. calcium chloride 0.0014 meq/ml / potassium chloride 0.004 meq/ml / sodium chloride 0.103 meq/ml / sodium lactate 0.028 meq/ml injectable solution (20 sources) Start: End: take 100 mL intravenously every hour 100 mL/hr, IntraVENous, Continuous, Starting on Tue07/09/25 at 0315 Start: 05-21-2025 End: 05-23-2025 take 100 mL intravenously every hour 100 mL/hr, IntraVENous, Continuous, Starting on Tue05/23/25 at 1415, For 6 hours Start: 05-10-2025 End: 05-11-2025 take 100 mL intravenously every hour 100 mL/hr, IntraVENous, Continuous, Starting on Tue05/10/25 at 0830 Start: 05-10-2025 End: 05-10-2025 500 mL, IntraVENous, at 250 mL/hr, Administer over 2 Hours, Once, On Tue05/10/25 at 0430, For 1 dose Start: 08-08-2024 End: 08-09-2024 take 75 mL intravenously every hour 75 mL/hr, IntraVENous, Continuous, Starting on Tue08/08/24 at 0215, Recovery & On Unit Start: 08-07-2024 End: 08-07-2024 500 mL, IntraVENous, at 500 mL/hr, Administer over 1 Hours, Once, On Tue08/07/24 at 0835, For 1 dose Start: 04-24-2024 End: 04-26-2024 take 100 mL intravenously every hour 100 mL/hr, IntraVENous, Continuous, Starting on Tue04/24/24 at 0625 Start: 04-11-2024 End: 04-11-2024 1,000 mL, IntraVENous, at 1, 000 mL/hr, Administer over 1 Hours, Once, On Tue04/11/24 at 1815, For 1 dose Start: 04-10-2024 End: 04-12-2024 take 125 mL intravenously every hour 125 mL/hr, IntraVENous, Continuous, Starting on Tue04/10/24 at 1700 Start: 06-28-2023 End: 06-28-2023 Lactated ringers IV solution 1,000 mL ceFAZolin (Ancef) 1,000 mg in sodium chloride 0.9 % 50 mL IVPB (2 sources) Start: 08-08-2024 End: 08-08-2024 take 1000 mg intravenously every eight hours 1,000 mg, IntraVENous, at 100 mL/hr, Administer over 30 Minutes, Every 8 hours, First dose on Tue08/08/24 at 0230, For 1 day, Phase II/On Unit, Mini-Bag Plus bag, Suspected Indication (Select all that apply): Surgical Prophylaxis cephalexin 500 mg oral capsule (3 sources) Cephalosporin Antibacterial Start: 09-01-2021 End: 09-11-2021 take 500 mg by mouth every twelve hours Cephalexin Discontinued 500 MG PO Q12H 20 September 01, 2021 12:00am September 11, 2021 12:01am cetirizine hydrochloride 10 mg oral tablet (1 source) Histamine-1 Receptor Antagonist Start: 05-16-2021 End: 11-10-2021 take 1 tablet by mouth once daily cetirizine (ZYRTEC) 10 mg tablet Take 1 tablet by mouth once daily. 20 tablet 05/16/2021 11/10/2021 Discontinued (Discontinued by Patient) CHLORPHENIRAMINE-H YDROCODONE (1 source) Histamine-1 Receptor Antagonist, Opioid Agonist Start: 02-09-2011 End: 02-14-2011 TUSSIONEX PENNKINETIC ER 10-8 MG/5ML SUER 1 tsp twice daily as needed for cough for 5 days. CHLORPHENIRAMINE- HYDROCODONE [id number] Cristine Medina PA-C ciprofloxacin 500 mg oral tablet (3 sources) Quinolone Antimicrobial Start: 08-15-2013 End: 09-25-2013 take 500 mg by mouth twice daily Ciprofloxacin Hcl Discontinued 500 MG PO TWICE A DAY August 15, 2013 12:00am September 25, 2013 8:23pm CITALOPRAM HYDROBROMIDE TABS (2 sources) Serotonin Reuptake Inhibitor Start: 02-09-2011 End: 09-15-2011 CELEXA TABS CITALOPRAM HYDROBROMIDE TABS [id number] Tuyet Elizabeth MD Start: 02-09-2011 CELEXA TABS 20 08/14/03 CITALOPRAM HYDROBROMIDE TABS [id number] Cristine Medina PA-C clonazePAM 1 mg oral tablet (3 sources) Benzodiazepine Start: 10-11-2018 End: 11-10-2018 take 1 tablet by mouth every twelve hours for anxiety Clonazepam Discontinued 1 MG PO TWICE A DAY 60 October 11, 2018 12:00am November 10, 2018 12:09am 1 tab every 12 H for anxiety GUAIFENESIN-CODEIN E (6 sources) Opioid Agonist Start: 11-09-2011 take 5 mL by mouth every six hours as needed for cough CHERATUSSIN AC 100-10 MG/5ML SYRP 5ml every 6hr by mouth as needed for cough, avoid driving or operating machine under the influence of medication. GUAIFENESIN-CODEINE [id number] Tuyet Elizabeth MD Start: 11-09-2011 End: 07-31-2013 take 5 mL by mouth every six hours as needed for cough CHERATUSSIN AC 100-10 MG/5ML SYRP 5ml every 6hr by mouth as needed for cough, avoid driving or operating machine under the influence of medication. GUAIFENESIN-CODEINE [id number] Vadim Cano Andrzej Start: 10-26-2011 CHERATUSSIN AC 100-10 MG/5ML SYRP 5ml every 6hr as needed cough, avoid driving or operating machine under the influence of medication. GUAIFENESIN-CODEINE [id number] Tuyet Elizabeth MD Start: 10-26-2011 End: 11-09-2011 CHERATUSSIN AC 100-10 MG/5ML SYRP 5ml every 6hr as needed cough, avoid driving or operating machine under the influence of medication. GUAIFENESIN-CODEINE [id number] Tuyet Elizabeth MD Start: 09-15-2011 CHERATUSSIN AC 100-10 MG/5ML SYRP 5ml every 6hr as needed cough GUAIFENESIN-CODEINE [id number] Tuyet Elizabeth MD Start: 09-15-2011 End: 10-13-2011 CHERATUSSIN AC 100-10 MG/5ML SYRP 5ml every 6hr as needed cough PRIMOAIFENESIN-CODEINE [id number] Tuyet Elizabeth MD cyclobenzaprine hydrochloride 10 mg oral tablet (17 sources) Muscle Relaxant Start: 06-12-2025 End: 09-10-2025 cyclobenzaprine (Flexeril) 10 MG tablet 06/12/2025 07/09/2025 Discontinued Start: 06-29-2023 End: 07-14-2023 take 1 tablet by mouth three times daily Cyclobenzaprine 10 MG tablet Take 1 tablet by mouth 3 times daily for 14 days. 42 tablet 0 06/30/2023 07/14/2023 Active Start: 10-13-2011 End: 07-31-2013 take 1 tablet by mouth three times daily as needed CYCLOBENZAPRINE HCL 10 MG TABS One tablet by mouth three times daily as needed, avoid driving or operating machine under the influence of medication. CYCLOBENZAPRINE HCL [id number] Tuyet Elizabeth MD diatrizoate meglumine-sodium (Gastrografin) 66-10 % solution 120 mL (2 sources) Start: 04-25-2024 End: 04-25-2024 take 120 mL by mouth once 120 mL, Oral, Once, On Tue04/25/24 at 1245, For 1 dose diatrizoate meglumine-sodium (Gastrografin) 66-10 % solution 30 mL (4 sources) Start: 07-09-2025 End: 07-09-2025 take 30 mL by mouth once 30 mL, Oral, Once, On Tue07/09/25 at 0840, For 1 dose, Administered at the time of the exam. Start: 05-10-2025 End: 05-10-2025 take 30 mL by mouth once 30 mL, Oral, Once, On 11/03 at 1115, For 1 dose, Administered at the time of the exam. diclofenac sodium 0.01 mg/mg topical gel (2 sources) Nonsteroidal Anti-inflammatory Drug Start: 05-21-2025 End: 05-24-2025 2 g, Topical, 2 times daily, First dose on Tue05/21/25 at 0000, Apply to neck. dicyclomine hydrochloride 10 mg oral capsule (7 sources) Anticholinergic Start: 07-30-2025 End: 07-30-2025 take 10 mg by mouth once 10 mg, Oral, Once, On Tue07/30/25 at 1910, For 1 dose Start: 11-13-2023 End: 11-13-2023 dicyclomine (Bentyl) injecti on 20 mg Start: 02-09-2021 End: 02-14-2021 dicyclomine 10 mg oral capsu le Dose : 10 mg = 1 cap(s), Oral, QID, # 20 cap(s), 0 Refill(s) Start Date: 02/09/21 Stop Date: 02/14/21 Status: Ordered Medication Dispense Status: Completed Quantity: 20.0 Unit: cap(s) Total Allowed Fills: 1 Fills Dispensed: 0 Start: 10-01-2019 End: 11-08-2019 take 20 mg by mouth three times daily before mealtime Dicyclomine Discontinued 20 MG PO THREE TIMES DAILY BEFORE MEALS October 01, 2019 12:00am November 08, 2019 4:46pm 1 ml diphenhydrAMINE hydrochloride 50 mg/ml cartridge (8 sources) Histamine-1 Receptor Antagonist Start: 07-08-2025 End: 07-08-2025 25 mg, IntraVENous, Once, On Tue07/08/25 at 1655, For 1 dose Start: 05-23-2025 End: 05-23-2025 take 25 mg by mouth once 25 mg, Oral, Once, On Bella at 0900, For 1 dose Start: 05-23-2025 End: 05-23-2025 take 25 mg by mouth once 25 mg, Oral, Once, On Tue at 0900, For 1 dose Start: 05-09-2025 End: 05-09-2025 25 mg, IntraVENous, Once, On Tue05/09/25 at 2110, For 1 dose Start: 04-15-2024 End: 04-15-2024 25 mg, IntraVENous, Once, On Tue04/15/24 at 1110, For 1 dose docusate sodium 100 mg oral capsule (2 sources) Start: 04-12-2024 End: 04-13-2024 take 100 mg by mouth twice daily 100 mg, Oral, 2 times daily, First dose on Bella 04/12/24 at 0915, Do not crush or break. doxycycline (Vibramycin) 500 mg, lidocaine PF (Xylocaine) 1 % 10 mL in sodium chloride (PF) 0.9 % 40 mL sclerotherapy syringe (2 sources) Start: 11-20-2024 End: 11-20-2024 0-50 mL, Drain Instillation , Once, On Tue11/20/24 at 0930, For 1 dose, For IR use Only- NOT FOR IV ADMINISTRATION. Protect from Light doxycycline (Vibramycin) 500 mg, lidocaine PF (Xylocaine) 1 % 10 mL in sodium chloride (PF) 0.9 % 50 mL pleurodesis syringe (4 sources) Start: 10-05-2024 End: 10-05-2024 take 500 mg intravenously once 500 mg, IntraPLEUral, Once, On Tue10/05/24 at 0815, For 1 dose, For Pleurodesis Only- NOT FOR IV ADMINISTRATION. Protect from Light Start: 09-07-2024 End: 09-07-2024 take 500 mg intravenously once 500 mg, IntraPLEUral, O nce, On Tue09/07/24 at 0845, For 1 dose, For Pleurodesis Only- NOT FOR IV ADMINISTRATION. Protect from Light DULoxetine 60 mg delayed release oral capsule (4 sources) Serotonin and Norepinephrine Reuptake Inhibitor Start: 11-09-2011 End: 07-31-2013 take 1 tablet by mouth once daily CYMBALTA 60 MG CPEP One tablet by mouth daily DULOXETINE HCL [id number] Vadim Rachael Donnelly Start: 09-15-2011 take 1 tablet by luis th once daily CYMBALTA 30 MG CPEP One tablet by mouth daily DULOXETINE HCL [id number] Tuyet Elizabeth MD 0.4 ml enoxaparin sodium 100 mg/ml prefilled syringe (15 sources) Low Molecular Weight Heparin Start: 07-09-2025 End: 07-10-2025 inject 40 mg by subcutaneous injection every twenty-four hours 40 mg, SubCUTAneous, Every 24 hours, First dose on Tue07/09/25 at 0315, Indication of Use: Prophylaxis-DVT/PE, Indications: Prophylaxis of Venous Thromboembolism Start: 05-21-2025 End: 05-24-2025 inject 40 mg by subcutaneous injection every twenty-four hours 40 mg, SubCUTAneous, Every 24 hours scheduled (Daily), First dose on Tue05/21/25 at 0900, Indication of Use: Prophylaxis-DVT/PE, Indications: Prophylaxis of Venous Thromboembolism Start: 05-10-2025 End: 05-11-2025 inject 40 mg by subcutaneous injection every twenty-four hours 40 mg, SubCUTAneous, Every 24 hours scheduled (Daily), First dose on Tue05/10/25 at 0900, Indication of Use: Prophylaxis-DVT/PE, Indications: Prophylaxis of Venous Thromboembolism Start: 08-08-2024 End: 08-13-2024 inject 40 mg by subcutaneous injection every twenty-four hours 40 mg, SubCUTAneous, Every 24 hours scheduled (Daily), First dose on Tue08/08/24 at 0900, Phase II/On Unit, Indication of Use: Prophylaxis-DVT/PE, Indications: Prophylaxis of Venous Thromboembolism Start: 04-24-2024 End: 04-26-2024 inject 1 dose by subcutaneous injection twice daily 30 mg, SubCUTAneous, Every 12 hours scheduled (2 times per day), First dose on Tue04/24/24 at 0900, Indication of Use: Prophylaxis-DVT/PE Start: 04-11-2024 End: 04-13-2024 inject 40 mg by subcutaneous injection every twenty-four hours 40 mg, SubCUTAneous, Every 24 hours scheduled (Daily), First dose on Tue04/11/24 at 0900, Indication of Use: Prophylaxis-DVT/PE, Indications: Prophylaxis of Venous Thromboembolism Start: 09-13-2023 End: 09-15-2023 enoxaparin (Lovenox) syringe 30 mg Start: 06-28-2023 End: 06-30-2023 Enoxaparin Sodium (LOVENOX) injection 40 mg etodolac 300 mg oral capsule (2 sources) Nonsteroidal Anti-inflammatory Drug Start: 10-26-2011 End: 11-09-2011 take 1 tablet by mouth three times daily at mealtime ETODOLAC 300 MG CAPS One tablet by mouth three times daily take with food ETODOLAC [id number] Tuyet Elizabeth MD famotidine 20 mg oral tablet (2 sources) Histamine-2 Receptor Antagonist Start: 10-26-2011 End: 07-31-2013 take 1 tablet by mouth once daily PEPCID 20 MG TABS One tablet by mouth daily FAMOTIDINE [id number] Vadim Donnelly famotidine (Pepcid) 20 mg in sodium chloride (PF) 0.9 % 10 mL injection (1 source) Start: 11-13-2023 End: 11-13-2023 famotidine (Pepcid) 20 mg in sodium chloride (PF) 0.9 % 10 mL injection 2 ml fentaNYL 0.05 mg/ml injection (8 sources) Opioid Agonist Start: 11-20-2024 End: 11-20-2024 IntraVENous, As needed, Starting on Tue11/20/24 at 1022, Intraprocedure Start: 10-04-2024 End: 10-04-2024 IntraVENous, As needed, Star ting on Bella 10/04/24 at 0900, Intraprocedure Start: 09-07-2024 End: 09-07-2024 IntraVENous, As needed, Star ting on Tue09/07/24 at 1055, Intraprocedure gabapentin 300 mg oral capsule (6 sources) Anti-epileptic Agent Start: 08-08-2024 End: 08-13-2024 take 1 dose by mouth three times daily 300 mg, Oral, Every 8 hours scheduled (3 times per day), First dose (after last modification) on Tue08/08/24 at 1400, Phase II/On Unit Start: 08-08-2024 End: 08-08-2024 take 1 dose by mouth three times daily 100 mg, Oral, Every 8 hours scheduled (3 times per day), First dose on Tue08/08/24 at 0600, Phase II/On Unit Start: 11-10-2021 End: 01-08-2022 take 2 capsules by mouth every twenty-four hours as needed gabapentin (NEURONTIN) 100 mg capsule Take 2 capsules by mouth at bedtime as needed for up to 30 days. 60 capsule 0 11/10/2021 01/08/2022 Discontinued (Side Effects) Start: 03-28-2020 take 1 capsule by mo uth three times daily Gabapentin 100 MG Oral Capsule TAKE 1 CAPSULE 3 TIMES DAILY. Quantity: 21 Refills: 0 Jolene Liliata Start : 28-Mar-2020 Active Comment on above: Take 2 capsules by m outh at bedtime as needed for up to 30 days. 500 ml glucose 50 mg/ml / potassium chloride 0.02 meq/ml / sodium chloride 4.5 mg/ml injection (3 sources) Start: End: take 75 mL intravenously every hour 75 mL/hr, IntraVENous, Continuous, Starting on Bella 04/12/24 at 0715 Start: 06-28-2023 End: 06-30-2023 dextrose 5% and sodium chlor deuce 0.45% 1,000 ml with potassium chloride 20 mEq premix IV solution 250 ml glucose 50 mg/ml / sodium chloride 9 mg/ml injection (2 sources) Start: 09-13-2023 End: 09-15-2023 dextrose 5 % and sodium chloride 0.9 % infusion 24 hr guanFACINE 1 mg extended release oral tablet (13 sources) Central alpha-2 Adrenergic Agonist Start: 08-31-2023 End: 11-15-2023 take 1 tablet by mouth once daily guanFACINE (Intuniv) 1 mg 24 hr tablet Take 1 tablet by mouth Nightly. 0 08/31/2023 11/15/2023 Discontinued (Therapy completed) Comment on above: Take 1 tablet by luis th daily at bedtime. 1 ml haloperidol 5 mg/ml prefilled syringe (2 sources) Typical Antipsychotic Start: 04-24-2024 End: 04-24-2024 2 mg, IntraMUSCular, Once, On Tue04/24/24 at 0355, For 1 dose, IM route of administration preferred. Because of the risk of TdP and QT prolongation, ECG monitoring is recommended if haloperidol is given IV 1 ml HYDROmorphone hydrochloride 1 mg/ml cartridge (20 sources) Opioid Agonist Start: 07-30-2025 End: 07-30-2025 take 0.5 mg by mouth once 0.5 mg, IntraVENous, Once, On Tue07/30/25 at 1910, For 1 dose, If oral and injectable narcotics ordered, use oral first and only use injectable if oral is ineffective or cannot take oral. Do Not give oral and injectable within 1 hour of each other unless specifically ordered. Start: 07-09-2025 End: 07-10-2025 take 0.5 mg intravenously every four hours as needed for pain 0.5 mg, IntraVENous, Every 4 hours PRN, severe pain (7-10), Starting on Tue07/09/25 at 0525, If oral and IV narcotics ordered, use oral first and only use IV if oral is ineffective or cannot take oral. Do Not give oral and IV within 1 hour of each other unless specifically ordered. Start: 07-08-2025 End: 07-09-2025 take 0.5 mg by mouth once 0.5 mg, IntraVENous, Once, O n 07/08/25 at 2150, For 1 dose, If oral and injectable narcotics ordered, use oral first and only use injectable if oral is ineffective or cannot take oral. Do Not give oral and injectable within 1 hour of each other unless specifically ordered. Start: 07-08-2025 End: 07-08-2025 1 mg, IntraVENous, Once, On Tue07/08/25 at 1545, For 1 dose Start: 05-21-2025 End: 05-21-2025 take 0.5 mg by mouth once 0.5 mg, IntraVENous, Once, O n 05/21/25 at 0530, For 1 dose, If oral and injectable narcotics ordered, use oral first and only use injectable if oral is ineffective or cannot take oral. Do Not give oral and injectable within 1 hour of each other unless specifically ordered. Start: 05-21-2025 End: 05-21-2025 take 0.5 mg by mouth once 0.5 mg, IntraVENous, Once, O n 05/21/25 at 0530, For 1 dose, If oral and injectable narcotics ordered, use oral first and only use injectable if oral is ineffective or cannot take oral. Do Not give oral and injectable within 1 hour of each other unless specifically ordered. Start: 05-21-2025 End: 05-21-2025 take 0.5 mg by mouth once 0.5 mg, IntraVENous, Once, O n 05/21/25 at 0215, For 1 dose, If oral and injectable narcotics ordered, use oral first and only use injectable if oral is ineffective or cannot take oral. Do Not give oral and injectable within 1 hour of each other unless specifically ordered. Start: 05-20-2025 End: 05-20-2025 1 mg, IntraVENous, Once, On Tue05/20/25 at 2010, For 1 dose Start: 05-10-2025 End: 05-11-2025 take 0.5 mg intravenously every four hours as needed for pain and pain 0.5 mg, IntraVENous, Every 4 hours PRN, moderate pain (4-6), severe pain (7-10), Starting on 05/11/25 at 0946, If oral and injectable narcotics ordered, use oral first and only use injectable if oral is ineffective or cannot take oral. Do Not give oral and injectable within 1 hour of each other unless specifically ordered. Start: 05-09-2025 End: 05-09-2025 take 0.5 mg by mouth once 0.5 mg, IntraVENous, Once, O n [place] 05/09/25 at 2110, For 1 dose, If oral and injectable narcotics ordered, use oral first and only use injectable if oral is ineffective or cannot take oral. Do Not give oral and injectable within 1 hour of each other unless specifically ordered. Start: 05-09-2025 End: 05-09-2025 1 mg, IntraVENous, Once, On [place] 05/09/25 at 1915, For 1 dose Start: 02-21-2025 End: 02-22-2025 take 0.5 mg intravenously every six hours as needed for pain 0.5 mg, IntraVENous, Every 6 hours PRN, severe pain (7-10), 2nd line for breakthrough pain, Starting on [place] 02/21/25 at 0610, If oral and IV narcotics ordered, use oral first and only use IV if oral is ineffective or cannot take oral. Do Not give oral and IV within 1 hour of each other unless specifically ordered. Start: 02-20-2025 End: 02-20-2025 take 0.5 mg by mouth once 0.5 mg, IntraVENous, Once, O n [facility] 02/20/25 at 202, For 1 dose, If oral and injectable narcotics ordered, use oral first and only use injectable if oral is ineffective or cannot take oral. Do Not give oral and injectable within 1 hour of each other unless specifically ordered. Start: 12-25-2024 End: 12-25-2024 take 1 dose by mouth every hour 1 mg, IntraVENous, Onc e, On Tu12/25/24 at 1840, For 1 dose, If oral and injectable narcotics ordered, use oral first and only use injectable if oral is ineffective or cannot take oral. Do Not give oral and injectable within 1 hour of each other unless specifically ordered. Start: 11-23-2024 End: 11-23-2024 take 1 dose by mouth every hour 1 mg, IntraVENous, Onc e, On Tue11/23/24 at 0955, For 1 dose, If oral and injectable narcotics ordered, use oral first and only use injectable if oral is ineffective or cannot take oral. Do Not give oral and injectable within 1 hour of each other unless specifically ordered. Start: 11-23-2024 End: 11-23-2024 0.5 mg, IntraVENous, Once, O n 11/23/24 at 0740, For 1 dose Start: 09-02-2024 End: 09-02-2024 take 0.5 mg by mouth once 0.5 mg, IntraVENous, Once, O n 09/02/24 at 1220, For 1 dose, If oral and IV narcotics ordered, use oral first and only use IV if oral is ineffective or cannot take oral. Do Not give oral and IV within 1 hour of each other unless specifically ordered. Start: 08-13-2024 End: 08-18-2024 take 1 tablet by mouth every six hours as needed for pain HYDROmorphone (Dilaudid) 2 MG tablet Indications: Ventral hernia without obstruction or gangrene Take 1 tablet (2 mg) by mouth every 6 hours as needed for severe pain (7-10) for up to 5 days. 20 tablet 08/13/2024 3:35 PM EST 08/13/2024 08/18/2024 Active Start: 08-13-2024 End: 08-13-2024 take 1 tablet by mouth every six hours as needed 4 mg, Oral, Every 6 hours PRN, severe break through pain. pt takes percocet 6x daily as outpatient. dilaudid is for breakthrough pain as needed between percocet. thank you., Starting on 08/13/24 at 0747 Start: 08-11-2024 End: 08-11-2024 take 0.25 mg by mouth once 0.25 mg, IntraVENous, Once, On 08/11/24 at 0230, For 1 dose, If oral and IV narcotics ordered, use oral first and only use IV if oral is ineffective or cannot take oral. Do Not give oral and IV within 1 hour of each other unless specifically ordered. Start: 08-10-2024 End: 08-10-2024 take 1 mg by mouth once 1 mg, Oral, Once, On 08/10/24 at 1830, For 1 dose Start: 08-10-2024 End: 08-10-2024 take 1 mg by mouth once 1 mg, Oral, Once, On 11/02 at 1830, For 1 dose Start: 08-09-2024 End: 08-09-2024 take 0.5 mg by mouth once 0.5 mg, IntraVENous, Once, O n [place] 08/09/24 at 1430, For 1 dose, If oral and IV narcotics ordered, use oral first and only use IV if oral is ineffective or cannot take oral. Do Not give oral and IV within 1 hour of each other unless specifically ordered. Start: 08-08-2024 End: 08-08-2024 0.5 mg, IntraVENous, Every 5 min PRN, severe pain (7-10), moderate pain (4-6), Starting on Tue08/08/24 at 0029, For 2 doses, Recovery (only), Phase I and Phase II- Initial therapy for severe pain (7-10). Restricted to a 90 minute time frame starting when the patient can verbally state their pain score. If after 2 doses the pain score does not decrease by more than one point, then call the provider. If oral meds are utilized, do not return to initial therapy medications. Start: 08-07-2024 End: 08-08-2024 take 0.5 mg by mouth every three hours as needed for pain 0.5 mg, IntraVENous, Every 3 hours PRN, Breakthrough pain, Starting on Tue08/08/24 at 0216, Phase II/On Unit, If oral and IV narcotics ordered, use oral first and only use IV if oral is ineffective or cannot take oral. Do Not give oral and IV within 1 hour of each other unless specifically ordered. Start: 08-07-2024 End: 08-07-2024 0.5 mg, IntraVENous, Once, O n 08/07/24 at 0435, For 1 dose Start: 08-07-2024 End: 08-07-2024 1 mg, IntraVENous, Once, On Tu08/07/24 at 0230, For 1 dose Start: 07-08-2024 End: 07-08-2024 take 1 dose by mouth every hour 1 mg, IntraVENous, Onc e, On 07/08/24 at 0940, For 1 dose, If oral and IV narcotics ordered, use oral first and only use IV if oral is ineffective or cannot take oral. Do Not give oral and IV within 1 hour of each other unless specifically ordered. Start: 07-08-2024 End: 07-08-2024 1 mg, IntraVENous, Every 2 h our PRN, moderate pain (4-6), severe pain (7-10), Starting on 07/08/24 at 0837, For 3 doses, If oral and IV narcotics ordered, use oral first and only use IV if oral is ineffective or cannot take oral. Do Not give oral and IV within 1 hour of each other unless specifically ordered. Start: 04-24-2024 End: 04-24-2024 take 0.5 mg by mouth once 0.5 mg, IntraVENous, Once, O n Tue04/24/24 at 0555, For 1 dose, If oral and IV narcotics ordered, use oral first and only use IV if oral is ineffective or cannot take oral. Do Not give oral and IV within 1 hour of each other unless specifically ordered. Start: 04-15-2024 End: 04-15-2024 take 0.5 mg by mouth once 0.5 mg, IntraVENous, Once, O n [place] 04/15/24 at 1050, For 1 dose, If oral and IV narcotics ordered, use oral first and only use IV if oral is ineffective or cannot take oral. Do Not give oral and IV within 1 hour of each other unless specifically ordered. Start: 04-10-2024 End: 04-10-2024 take 0.5 mg by mouth once 0.5 mg, IntraVENous, Once, O n Tue04/10/24 at 1310, For 1 dose, If oral and IV narcotics ordered, use oral first and only use IV if oral is ineffective or cannot take oral. Do Not give oral and IV within 1 hour of each other unless specifically ordered. Start: 04-10-2024 End: 04-10-2024 take 1 dose by mouth every hour 1 mg, IntraVENous, Onc e, On Tue04/10/24 at 0855, For 1 dose, If oral and IV narcotics ordered, use oral first and only use IV if oral is ineffective or cannot take oral. Do Not give oral and IV within 1 hour of each other unless specifically ordered. Start: 12-29-2023 End: 12-29-2023 HYDROmorphone (Dilaudid) injection 0.5 mg Start: 10-19-2023 End: 10-20-2023 take 0.5 mg intravenously every four hours as needed for pain HYDROmorphone (Dilaudid) injection 0.5 mg Start: 10-19-2023 End: 10-19-2023 HYDROmorphone (Dilaudid) injection 1 mg Start: 06-28-2023 End: 06-29-2023 HYDROmorphone (DILAUDID) injection 1 mg Start: 06-28-2023 End: 06-28-2023 HYDROmorphone (DILAUDID) injection 0.5 mg Start: 03-17-2021 End: 03-17-2021 HYDROmorphone (DILAUDID) injection 0.5 mg HYDROmorphone (Dilaudid) injection 0.5 mg (2 sources) Start: 04-11-2024 End: 04-13-2024 HYDROmorphone (Dilaudid) injection 0.5 mg hydrOXYzine hydrochloride 25 mg oral tablet (16 sources) Antihistamine Start: 02-22-2025 End: 05-24-2025 take 1 tablet by mouth every eight hours as needed hydrOXYzine HCl (Atarax) 25 MG tablet Take 1 tablet (25 mg) by mouth every 8 hours as needed for itching for up to 7 days. 21 tablet 02/22/2025 05/24/2025 Discontinued (Stop taking at discharge) Start: 02-09-2021 hydrOXYzine hy drochloride 50 mg oral tablet Dose : 50 mg = 1 tab(s), Oral, q6hr, PRN as needed for anxiety Start Date: 02/09/21 Status: Ordered Medication Dispense Status: Completed Total Allowed Fills: 1 Fills Dispensed: 0 Start: 04-01-2020 End: 06-18-2021 take 100 mg by mouth twice daily Hydroxyzine Pamoate Discontinued 100 MG PO TWICE A DAY March 31, 2020 11:00pm June 18, 2021 8:07am Start: 03-25-2020 End: 11-10-2021 take 2 tablets by mouth every six hours as needed hydrOXYzine HCl (ATARAX) 50 mg tablet Take 2 tablets by mouth every 6 hours as needed. 180 tablet 1 03/25/2020 11/10/2021 Discontinued (Discontinued by Patient) ibuprofen 800 mg oral tablet (20 sources) Nonsteroidal Anti-inflammatory Drug Start: 02-13-2024 End: 08-24-2024 take 1 tablet by mouth every six hours as needed ibuprofen 800 MG tablet Take 800 mg by mouth every 6 hours as needed. 02/13/2024 08/24/2024 Discontinued (Therapy completed) iopamidol (Isovue-370) 76 % injection 75 mL (20 sources) Start: 07-30-2025 End: 07-30-2025 take 75 mL intravenously once as needed 75 mL, IntraVENous, IMG once PRN, contrast, Starting on Tue07/30/25 at 1557, For 1 dose Start: 07-08-2025 End: 07-08-2025 take 75 mL intravenously once as needed 75 mL, IntraVENous, IMG once PRN, contrast, Starting on Tue07/08/25 at 1653, For 1 dose Start: 05-20-2025 End: 05-20-2025 take 75 mL intravenously once as needed 75 mL, IntraVENous, IMG once PRN, contrast, Starting on Tue05/20/25 at 1756, For 1 dose Start: 05-09-2025 End: 05-09-2025 take 75 mL intravenously once as needed 75 mL, IntraVENous, IMG once PRN, contrast, Starting on Tue05/09/25 at 1852, For 1 dose Start: 02-20-2025 End: 02-20-2025 take 75 mL intravenously once as needed 75 mL, IntraVENous, IMG once PRN, contrast, Starting on Tue02/20/25 at 1835, For 1 dose Start: 12-25-2024 End: 12-25-2024 take 75 mL intravenously once as needed 75 mL, IntraVENous, IMG once PRN, contrast, Starting on Tue12/25/24 at 1855, For 1 dose Start: 11-23-2024 End: 11-23-2024 take 75 mL intravenously once as needed 75 mL, IntraVENous, IMG once PRN, contrast, Starting on Tue11/23/24 at 0839, For 1 dose Start: 09-02-2024 End: 09-02-2024 take 75 mL intravenously once as needed 75 mL, IntraVENous, IMG once PRN, contrast, Starting on 09/02/24 at 1149, For 1 dose Start: 08-07-2024 End: 10-29-2024 take 75 mL intravenously once as needed 75 mL, IntraVENous, IMG once PRN, contrast, Starting on Tue08/07/24 at 0317, For 1 dose Start: 07-08-2024 End: 07-08-2024 take 75 mL intravenously once as needed 75 mL, IntraVENous, IMG once PRN, contrast, Starting on Tue07/08/24 at 0918, For 1 dose Start: 04-24-2024 End: 04-24-2024 take 75 mL intravenously once as needed 75 mL, IntraVENous, IMG once PRN, contrast, Starting on Tue04/24/24 at 0239, For 1 dose Start: 04-15-2024 End: 04-15-2024 take 75 mL intravenously once as needed 75 mL, IntraVENous, IMG once PRN, contrast, Starting on Tue04/15/24 at 1031, For 1 dose Start: 04-10-2024 End: 04-10-2024 take 75 mL intravenously once as needed 75 mL, IntraVENous, IMG once PRN, contrast, Starting on Tue04/10/24 at 0956, For 1 dose Start: 09-13-2023 End: 09-13-2023 iopamidol (Isovue-370) 76 % injection 75 mL ketamine 24.5 mg in sodium chloride 0.9 % 50 mL ivpb (2 sources) Start: 07-09-2025 End: 07-09-2025 24.5 mg (rounded from 24.725 mg = 0.25 mg/kg 98.9 kg), IntraVENous, at 157.4 mL/hr, Administer over 20 Minutes, Once, On Tue07/09/25 at 0300, For 1 dose 10 ml lidocaine hydrochloride 10 mg/ml injection (20 sources) Antiarrhythmic, Amide Local Anesthetic Start: 11-20-2024 End: 11-20-2024 As needed, Starting on Tue11/20/24 at 1018, Intraprocedure Start: 10-24-2024 End: 07-09-2025 apply 1 dose transdermal route once daily lidocaine (Lidoderm) 5 % patch Place 1 patch on the skin daily. 10/24/2024 07/09/2025 Discontinued Start: 10-24-2024 apply 1 dose transde rmal route every twenty-four hours lidocaine (LIDODERM) 5 % Indications: Abdominal wall hernia Apply 1 Patch as directed every 24 hours. REMOVE AFTER 12 HOURS. 30 Patch 10/24/2024 Active Start: 09-07-2024 End: 09-07-2024 As needed, Starting on Tue11/07/23 at 0958, Intraprocedure Start: 08-10-2024 End: 08-13-2024 apply 2 doses transdermal route once daily, then apply 1 dose transdermal route every twelve hours 2 patch, TransDERmal, Administer over 12 Hours, Daily, First dose on Tue08/10/24 at 1445, Apply patch to either side of incision. Patch may remain in place for up to 12 hours in any 24 hour period. Start: 06-30-2023 End: 07-02-2023 lidocaine 4 % patch Place 1 patch on skin every 24 hours for 1 day. Max of 12 hours of application then remove. 1 patch 0 07/01/2023 07/02/2023 Active 1 ml LORazepam 2 mg/ml injection (14 sources) Benzodiazepine Start: 05-20-2025 End: 05-24-2025 take 0.5 mg intravenously every six hours as needed for anxiety 0.5 mg, IntraVENous, Every 6 hours PRN, anxiety, Starting on 05/20/25 at 2352, For IV doses dilute dose with 1ml NS. Start: 05-09-2025 End: 05-09-2025 1 mg, IntraVENous, Once, On [place] 05/09/25 at 2000, For 1 dose, For IV doses dilute dose with 1ml NS. Start: 08-08-2024 End: 08-09-2024 0.25 mg, IntraVENous, Once, On [place] 08/09/24 at 0315, For 1 dose, For IV doses dilute dose with 1ml NS. Start: 08-08-2024 End: 08-08-2024 0.5 mg, IntraVENous, Once, O n 08/08/24 at 0045, For 1 dose, Recovery (only), For IV doses dilute dose with 1ml NS. Start: 08-08-2024 End: 08-08-2024 0.5 mg, IntraVENous, Once, O n 08/08/24 at 0045, For 1 dose, Recovery (only), For IV doses dilute dose with 1ml NS. Start: 04-01-2020 End: 06-18-2021 take 0.5 mg by mouth twice daily as needed Lorazepam Discontinued 0.5 MG PO TWICE DAILY NEEDED March 31, 2020 11:00pm June 18, 2021 8:07am End: 11-10-2021 LORazepam (ATIVAN) 0.5 mg Ta ke by mouth three times daily as needed. 11/10/2021 Discontinued (Discontinued by Patient) 50 ml magnesium sulfate 40 mg/ml injection (10 sources) Start: 05-21-2025 End: 05-21-2025 2,000 mg, IntraVENous, at 25 mL/hr, Administer over 2 Hours, Once, On Tue05/21/25 at 0700, For 1 dose, Recommended infusion rate not to exceed 1,000 mg (milligrams) per hour. Start: 08-13-2024 End: 08-13-2024 4,000 mg, IntraVENous, at 25 mL/hr, Administer over 4 Hours, Once, On Tue08/13/24 at 0615, For 1 dose, Recommended infusion rate not to exceed 1,000 mg (milligrams) per hour. Start: 08-12-2024 End: 08-12-2024 2,000 mg, IntraVENous, at 25 mL/hr, Administer over 2 Hours, Once, On 08/12/24 at 0600, For 1 dose, Recommended infusion rate not to exceed 1,000 mg (milligrams) per hour. Start: 08-09-2024 End: 08-09-2024 2,000 mg, IntraVENous, at 25 mL/hr, Administer over 2 Hours, Once, On [place] 08/09/24 at 1945, For 1 dose, Recommended infusion rate not to exceed 1,000 mg (milligrams) per hour. Start: 08-08-2024 End: 08-08-2024 2,000 mg, IntraVENous, at 25 mL/hr, Administer over 2 Hours, Once, On Tue08/08/24 at 0215, For 1 dose, Recovery & On Unit, Recommended infusion rate not to exceed 1,000 mg (milligrams) per hour. melatonin 3 mg oral tablet (3 sources) Start: 02-21-2025 End: 02-22-2025 Start: 04-18-2019 melatonin 10 m g oral capsule Dose : 10 mg = 1 cap(s), Oral, qHS, 0 Refill(s) Start Date: 04/18/19 Status: Ordered Medication Dispense Status: Completed Total Allowed Fills: 1 Fills Dispensed: 0 24 hr metFORMIN hydrochloride 500 mg extended release oral tablet (20 sources) Biguanide Start: 12-29-2023 End: 06-13-2024 take 40-44.9 tablets by mouth every twenty-four hours at dinner metFORMIN XR (Glucophage-XR) 500 MG 24 hr tablet Indications: BMI 40.0-44.9, adult (HCC) , Class 3 severe obesity with serious comorbidity and body mass index (BMI) of 40.0 to 44.9 in adult, unspecified obesity type (HCC) Take 1 tablet (500 mg) by mouth with evening meal. 30 tablet 2 01/30/2024 06/13/2024 Discontinued (Therapy completed) Start: 09-15-2011 End: 07-31-2013 take 1 tablet by mouth twice daily METFORMIN HCL 500 MG TABS One tablet by mouth twice daily METFORMIN HCL [id number] Tuyet Elizabeth MD Start: 02-09-2011 End: 10-13-2011 GLUCOPHAGE TABS METFORMIN HCL TABS [id number] Tuyet Elizabeth MD Start: 02-09-2011 GLUCOPHAGE TAB S METFORMIN HCL TABS [id number] Cristine Medina PA-C methocarbamol 750 mg oral tablet (20 sources) Muscle Relaxant Start: 08-11-2024 End: 08-13-2024 take 1 dose by mouth three times daily 1,500 mg, Oral, Every 8 hours scheduled (3 times per day), First dose on Tue08/11/24 at 1400 Start: 08-10-2024 take 500 mg by mouth once 500 mg, Oral, Once, On Tue08/10/24 at 2345, For 1 dose Start: 08-09-2024 End: 08-11-2024 take 1000 mg intravenously every eight hours 1,000 mg, IntraVENous, Administer over 5 Minutes, Every 8 hours, First dose (after last modification) on Tue08/10/24 at 0700, Maximum dose: 3 g/day for no more than 3 consecutive days Start: 08-08-2024 End: 08-09-2024 take 1 dose by mouth three times daily 1,000 mg, Oral, Every 8 hours scheduled (3 times per day), First dose on Tue08/08/24 at 0330 Start: 04-26-2024 End: 09-28-2024 take 1 tablet by mouth three times daily as needed for muscle spasms methocarbamol (Robaxin) 750 MG tablet Take 1 tablet (750 mg) by mouth 3 times daily as needed for muscle spasms for up to 10 days. 30 tablet 04/26/2024 11:59 AM EDT 04/26/2024 09/28/2024 Discontinued (Therapy completed) Start: 04-26-2024 End: 04-26-2024 take 1 dose by mouth four times daily 500 mg, Oral, Every 6 hours scheduled (4 times per day), First dose on Tue04/26/24 at 1200 Start: 04-24-2024 End: 04-26-2024 take 1000 mg intravenously every eight hours 1,000 mg, IntraVENous, Administer over 5 Minutes, Every 8 hours, First dose (after last modification) on Tue04/24/24 at 1645, Maximum dose: 3 g/day for no more than 3 consecutive days Start: 04-11-2024 End: 04-13-2024 1,000 mg, IntraVENous, Admin ister over 5 Minutes, 3 times daily, First dose on Tue04/11/24 at 1845, For 3 days, Maximum dose: 3 g/day for no more than 3 consecutive days 2 ml metoclopramide 5 mg/ml prefilled syringe (20 sources) Dopamine-2 Receptor Antagonist Start: 07-30-2025 End: 07-30-2025 10 mg, IntraVENous, Once, On Tue07/30/25 at 1450, For 1 dose Start: 07-08-2025 End: 07-08-2025 10 mg, IntraVENous, Once, On Tue07/08/25 at 1655, For 1 dose Start: 05-20-2025 End: 05-20-2025 10 mg, IntraVENous, Once, On Tue05/20/25 at 1630, For 1 dose Start: 05-09-2025 End: 05-09-2025 10 mg, IntraVENous, Once, On Tue05/09/25 at 2110, For 1 dose Start: 12-25-2024 End: 12-25-2024 10 mg, IntraVENous, Once, On Tue12/25/24 at 1705, For 1 dose Start: 08-07-2024 End: 08-07-2024 10 mg, IntraVENous, Once, On Tue08/07/24 at 0840, For 1 dose Start: 04-24-2024 End: 04-24-2024 10 mg, IntraVENous, Once, On Tue04/24/24 at 0130, For 1 dose Start: 04-15-2024 End: 04-15-2024 10 mg, IntraVENous, Once, On Tue04/15/24 at 1110, For 1 dose Start: 11-13-2023 End: 11-13-2023 metoclopramide (Reglan) inje ction 10 mg Start: 09-13-2023 End: 09-13-2023 metoclopramide (Reglan) inje ction 10 mg Start: 05-16-2021 End: 11-10-2021 take 1 tablet by mouth every eight hours as needed metoclopramide HCl (REGLAN) 10 mg tablet Take 1 tablet by mouth three times daily as needed. 30min before meals. 20 tablet 05/16/2021 11/10/2021 Discontinued (Discontinued by Patient) Start: 08-12-2013 End: 09-25-2013 take 10 mg by mouth three times daily Metoclopramide Hcl Discontinued 10 MG PO THREE TIMES A DAY August 12, 2013 10:14pm September 25, 2013 8:23pm 2 ml midazolam 1 mg/ml injection (6 sources) Benzodiazepine Start: 11-20-2024 End: 11-20-2024 IntraVENous, As needed, Starting on Tue11/20/24 at 1022, Intraprocedure Start: 10-04-2024 End: 10-04-2024 IntraVENous, As needed, Star ting on [place] 10/04/24 at 0900, Intraprocedure Start: 09-07-2024 End: 09-07-2024 IntraVENous, As needed, [place] on Tue09/07/24 at 0956, Intraprocedure mirtazapine 15 mg disintegrating oral tablet (7 sources) Start: 05-23-2025 End: 06-23-2025 take 1 tablet by mouth once daily mirtazapine (Remeron Lydia-Tab) 15 MG disintegrating tablet Take 1 tablet (15 mg) by mouth Nightly. 30 tablet 05/24/2025 06/14/2025 Discontinued (Therapy completed) 1 ml morphine sulfate 4 mg/ml cartridge (20 sources) Opioid Agonist Start: 07-08-2025 End: 07-08-2025 take 1 dose by mouth every hour 4 mg, IntraVENous, Once, On 07/08/25 at 1910, For 1 dose, If oral and injectable narcotics ordered, use oral first and only use injectable if oral is ineffective or cannot take oral. Do Not give oral and injectable within 1 hour of each other unless specifically ordered. Start: 05-20-2025 End: 05-20-2025 take 1 dose by mouth every hour 8 mg, IntraVENous, Onc e, On 05/20/25 at 1630, For 1 dose, If oral and IV narcotics ordered, use oral first and only use IV if oral is ineffective or cannot take oral. Do Not give oral and IV within 1 hour of each other unless specifically ordered. Start: 05-09-2025 End: 05-09-2025 4 mg, IntraVENous, Once, On [place] 05/09/25 at 1820, For 1 dose Start: 02-20-2025 End: 02-20-2025 take 1 dose by mouth every hour 4 mg, IntraVENous, Onc e, On Tue02/20/25 at 1855, For 1 dose, If oral and injectable narcotics ordered, use oral first and only use injectable if oral is ineffective or cannot take oral. Do Not give oral and injectable within 1 hour of each other unless specifically ordered. Start: 12-25-2024 End: 12-25-2024 take 1 dose by mouth every hour 4 mg, IntraVENous, Onc e, On Tu12/25/24 at 1745, For 1 dose, If oral and IV narcotics ordered, use oral first and only use IV if oral is ineffective or cannot take oral. Do Not give oral and IV within 1 hour of each other unless specifically ordered. Start: 09-02-2024 End: 09-02-2024 take 1 dose by mouth every hour 4 mg, IntraVENous, Onc e, On 09/02/24 at 1050, For 1 dose, If oral and IV narcotics ordered, use oral first and only use IV if oral is ineffective or cannot take oral. Do Not give oral and IV within 1 hour of each other unless specifically ordered. Start: 08-07-2024 End: 08-07-2024 4 mg, IntraVENous, Once, On Tue08/07/24 at 1215, For 1 dose Start: 04-24-2024 End: 04-24-2024 take 1 dose by mouth every hour 4 mg, IntraVENous, Onc e, On Tue04/24/24 at 0130, For 1 dose, If oral and IV narcotics ordered, use oral first and only use IV if oral is ineffective or cannot take oral. Do Not give oral and IV within 1 hour of each other unless specifically ordered. Start: 04-15-2024 End: 04-15-2024 take 1 dose by mouth every hour 4 mg, IntraVENous, Onc e, On Tue04/15/24 at 0940, For 1 dose, If oral and IV narcotics ordered, use oral first and only use IV if oral is ineffective or cannot take oral. Do Not give oral and IV within 1 hour of each other unless specifically ordered. Start: 04-10-2024 End: 04-10-2024 take 1 dose by mouth every hour 4 mg, IntraVENous, Onc e, On Tue04/10/24 at 1505, For 1 dose, If oral and IV narcotics ordered, use oral first and only use IV if oral is ineffective or cannot take oral. Do Not give oral and IV within 1 hour of each other unless specifically ordered. Start: 11-13-2023 End: 11-13-2023 morphine injection 4 mg Start: 10-19-2023 End: 10-20-2023 take 4 mg intravenously every four hours as needed for pain morphine injection 4 mg Start: 09-13-2023 End: 09-15-2023 take 2 mg intravenously every four hours as needed for pain morphine injection 2 mg Start: 09-13-2023 End: 09-13-2023 morphine injection 4 mg 1 ml naloxone hydrochloride 0.4 mg/ml injection (17 sources) Opioid Antagonist Start: 07-09-2025 End: 07-10-2025 0.4 mg, IntraVENous, Every 5 min PRN, opioid reversal, respiratory depression, Starting on Tue07/09/25 at 0315, +++ For RR Start: 05-20-2025 End: 05-24-2025 Start: 02-21-2025 End: 02-22-2025 Start: 08-13-2024 End: 08-13-2025 naloxone (Narcan) 4 mg/0.1 m L nasal spray Administer 1 spray (4 mg) into affected nostril(s) as needed for opioid reversal. May repeat every 2-3 minutes if needed, alternating nostrils, until medical assistance becomes available. 2 each 08/13/2024 08/31/2024 Discontinued (Therapy completed) Start: 04-24-2024 End: 04-26-2024 0.4 mg, IntraVENous, Every 5 min PRN, opioid reversal, respiratory depression, Starting on Tue04/24/24 at 0633, +++ For RR Start: 04-10-2024 End: 04-13-2024 0.4 mg, IntraVENous, Every 5 min PRN, opioid reversal, respiratory depression, Starting on Tue04/10/24 at 1702, +++ For RR Start: 10-19-2023 End: 10-20-2023 naloxone (Narcan) injection 0.4 mg naloxone (Narcan) 0.4 mg in 0.9% sodium chloride 10 mL syringe (4 sources) Start: 05-10-2025 End: 05-11-2025 IntraVENous, PRN, opioid rev ersal, Starting on Tue05/10/25 at 0040, PRN if respiratory rate is less than 6/min and patient is difficult to arouse then notify physician STAT. Mix 9 mL of sodium chloride 0.9% with 0.4 mg (1 mL) of naloxone (NARCAN) in 10 mL syringe. (Note: dilution is 0.04 mg/mL) Give 0.08 mg (2 mL of special dilution), slow IV push, repeat up to 0.4 mg (10 mL) or until patient is responsive to physical stimulation and respiratory rate is equal to or greater than 6 breaths/min. Continue to observe, if no response within 3 minutes of administration of 0.4 mg (10 mL) total, repeat dose (0.4 mg as administered previously). Start: 08-08-2024 End: 08-13-2024 IntraVENous, PRN, opioid rev ersal, Starting on Tue08/08/24 at 0637, PRN if respiratory rate is less than 6/min and patient is difficult to arouse then notify physician STAT. Mix 9 mL of sodium chloride 0.9% with 0.4 mg (1 mL) of naloxone (NARCAN) in 10 mL syringe. (Note: dilution is 0.04 mg/mL) Give 0.08 mg (2 mL of special dilution), slow IV push, repeat up to 0.4 mg (10 mL) or until patient is responsive to physical stimulation and respiratory rate is equal to or greater than 6 breaths/min. Continue to observe, if no response within 3 minutes of administration of 0.4 mg (10 mL) total, repeat dose (0.4 mg as administered previously). oxyCODONE (20 sources) Opioid Agonist Start: 07-10-2025 End: 07-10-2025 take 1 tablet by mouth every eight hours as needed for pain oxyCODONE (Roxicodone) immediate release tablet 2.5 mg Start: 05-23-2025 End: 05-24-2025 take 1 tablet by mouth every six hours as needed for pain 10 mg, Oral, Every 6 hours PRN, severe pain (7-10), Starting on Tue05/23/25 at 1647 Start: 05-11-2025 End: 07-09-2025 take 1 tablet by mouth every six hours as needed oxyCODONE (Roxicodone) 5 MG immediate release tablet Take 5 mg by mouth every 6 hours as needed. 06/12/2025 07/09/2025 Discontinued Start: 05-11-2025 End: 05-11-2025 take 1 tablet by mouth every four hours as needed for pain oxyCODONE (Roxicodone) immediate release tablet 5 mg Start: 05-10-2025 End: 05-11-2025 take 1 tablet by mouth every four hours as needed for pain and pain 5 mg, Oral, Every 4 hours PRN, moderate pain (4-6), severe pain (7-10), Starting on Tue05/10/25 at 1339 Start: 05-10-2025 End: 05-10-2025 take 1 tablet by mouth every six hours as needed for pain 5 mg, Oral, Every 6 hours PRN, moderate pain (4-6), Starting on Tue05/10/25 at 0131 Start: 02-22-2025 End: 02-25-2025 take 1 tablet by mouth every six hours as needed for pain oxyCODONE (Roxicodone) 5 MG immediate release tablet Indications: Intractable abdominal pain Take 1 tablet (5 mg) by mouth every 6 hours as needed for moderate pain (4-6) for up to 3 days. 12 tablet 02/22/2025 02/25/2025 Active Start: 02-21-2025 End: 02-22-2025 take 1 tablet by mouth every six hours as needed for pain oxyCODONE (Roxicodone) immediate release tablet 5 mg Start: 12-25-2024 End: 12-28-2024 take 1 tablet by mouth every six hours as needed for pain oxyCODONE (Roxicodone) 5 MG immediate release tablet Indications: Abdominal pain, generalized Take 1 tablet (5 mg) by mouth every 6 hours as needed for severe pain (7-10) for up to 3 days. 12 tablet 12/25/2024 12/28/2024 Active Start: 10-04-2024 End: 10-04-2024 take 1 tablet by mouth every six hours as needed for pain 5 mg, Oral, Every 6 hours PRN, severe pain (7-10), Starting on Tue10/04/24 at 1005, For 1 dose Start: 09-07-2024 End: 09-07-2024 take 5 mg by mouth once as needed for pain 5 mg, Oral, Once PRN, moderate pain (4-6), Starting on Tue09/07/24 at 1104, For 1 dose Start: 04-26-2024 End: 04-29-2024 take 1 tablet by mouth every six hours as needed for pain oxyCODONE (Roxicodone) 5 MG immediate release tablet Indications: Ventral hernia without obstruction or gangrene Take 1 tablet (5 mg) by mouth every 6 hours as needed for severe pain (7-10) for up to 3 days. 12 tablet 04/26/2024 04/29/2024 Active Start: 04-26-2024 End: 04-26-2024 take 1 tablet by mouth every four hours as needed for pain and pain 5 mg, Oral, Every 4 hours PRN, severe pain (7-10), moderate pain (4-6), Starting on [facility] 04/26/24 at 1118 Start: 04-13-2024 End: 04-16-2024 take 1 tablet by mouth every six hours as needed for pain oxyCODONE (Roxicodone) 5 MG immediate release tablet Indications: Generalized abdominal pain Take 1 tablet (5 mg) by mouth every 6 hours as needed for severe pain (7-10) for up to 3 days. 12 tablet 04/13/2024 04/16/2024 Active Start: 06-30-2023 End: 07-04-2023 take 1 tablet by mouth every four hours as needed for pain oxyCODONE 5 MG tablet Indications: Ventral hernia without obstruction or gangrene Take 1 tablet by mouth every 4 hours as needed for Severe Pain for up to 4 days. 12 tablet 0 06/30/2023 07/04/2023 Active Start: 06-29-2023 End: 06-30-2023 take 1 tablet by mouth every four hours as needed oxyCODONE (ROXICODONE) tablet 5 mg Start: 02-28-2020 take 1 tablet by luis th every twelve hours oxyCODONE HCl - 5 MG Oral Tablet TAKE 1 TABLET Every twelve hours Quantity: 6 Refills: 0 Mike Mcgrath Start : 28-Feb-2020 Active Start: 01-19-2020 End: 08-31-2023 take 1 tablet by mouth every four hours as needed oxyCODONE (ROXICODONE) tablet 5 mg take 1 tablet by luis th every eight hours as needed for pain oxyCODONE (Roxicodone) 5 MG immediate release tablet Take 5 mg by mouth every 8 hours as needed for severe pain (7-10). Active oxyCODONE HCl - 5 MG Oral Capsule Refills: 0 DO Active Comment on above: Take 1 tablet by luis th every 6 hours as needed for pain. phenol 14 mg/ml mouthwash (1 source) Start: 06-28-20 End: 06-30-20 Phenol (CHLORASEPTIC) 1.4 % oral spray 1 spray piperacillin 3000 mg / tazobactam 375 mg injection (2 sources) Penicillin-class Antibacterial, beta Lactamase Inhibitor Start: 08-07-20 End: 08-08-20 take 3375 mg intravenously every eight hours 3,375 mg, IntraVENous, at 12.5 mL/hr, Administer over 4 Hours, Every 8 hours, First dose (after last modification) on Tue08/07/24 at 1300, premix bag, Suspected Indication (Select all that apply): Intra-Abdominal Infection, Surgical Prophylaxis piperacillin-tazobac brambila (Zosyn) 4.5 g in sodium chloride 0.9 % 100 mL IVPB Mini-Bag Plus (2 sources) Start: 08-07-20 End: 08-07-20 4.5 g, IntraVENous, at 200 mL/hr, Administer over 0.5 Hours, Once, On Tue08/07/24 at 0655, For 1 dose, Mini-Bag Plus bag, Suspected Indication (Select all that apply): Intra-Abdominal Infection polyethylene glycol 3350 [id number] mg powder for oral solution (20 sources) Osmotic Laxative Start: 07-09-20 End: 07-10-20 take 17 g by mouth every twenty-four hours as needed for constipation 17 g, Oral, Daily PRN, constipation, Starting on Tue07/09/25 at 0311, 1st line for treatment of constipation - give scheduled if no bowel movement in past 24 hours. Start: 05-20-2025 End: 05-24-2025 take 17 g by mouth every twenty-four hours as needed for constipation Start: 05-09-2025 End: 05-11-2025 take 17 g by mouth every twenty-four hours as needed for constipation Start: 02-21-2025 End: 02-22-2025 17 g, Oral, Daily, First dos e on Tue02/21/25 at 0900 Start: 08-09-2024 End: 08-20-2024 polyethylene glycol, PEG, 33 50 (Glycolax) 17 GM/SCOOP powder Take 17 g by mouth daily for 5 days. 119 g 08/13/2024 3:35 PM EST 08/13/2024 08/20/2024 Active Start: 04-26-2024 End: 05-03-2024 polyethylene glycol, PEG, 33 50 (Glycolax) 17 GM/SCOOP powder Take 17 g by mouth daily for 3 days. 119 g 04/26/2024 05/03/2024 Active Start: 06-28-2023 End: 2023 take 1 dose by mouth once daily Polyethylene glycol 17 g Pack packet Take 1 packet mixed with liquid by mouth daily for 5 days. 5 packet 0 07/01/2023 2023 Active Start: 01-06-2020 End: 04-13-2024 17 g, Oral, Daily, First dos e on Tue04/11/24 at 1145 potassium chloride 20 meq powder for oral solution (12 sources) Start: 07-30-2025 End: 07-30-2025 take 1 [oz_av] by mouth once 40 mEq, Oral, Once, On Tue07/30/25 at 1820, For 1 dose, Dissolve each packet in 4 ounces of water = 5 mEq per 1 oz fluid., Indications: Hypokalemia Start: 05-21-2025 End: 05-21-2025 40 mEq, IntraVENous, at 125 mL/hr, Administer over 4 Hours, Once, On Tue05/21/25 at 0600, For 1 dose, Max infusion rate = 10 mEq/hr Start: 05-20-2025 End: 05-20-2025 40 mEq, Oral, Once, On Tue at 1720, For 1 dose, Best given with food and plenty of water to minimize gastric irritation. Do not crush or chew. Start: 04-15-2024 End: 04-15-2024 10 mEq, IntraVENous, at 100 mL/hr, Administer over 1 Hours, Once, On Tue04/15/24 at 1110, For 1 dose Start: 04-15-2024 End: 04-15-2024 20 mEq, Oral, Once, On Tue at 1110, For 1 dose, Best given with food and plenty of water to minimize gastric irritation. Do not crush or chew. Start: 04-10-2024 End: 04-10-2024 10 mEq, IntraVENous, at 100 mL/hr, Administer over 1 Hours, Every 1 hour, First dose on Tue04/10/24 at 0835, For 4 doses, Total dose: 40 mEq predniSONE (2 sources) Corticosteroid Start: 10-26-2011 PREDNISONE TAB S PREDNISONE TABS [id number] Tuyet Elizabeth MD Start: 10-26-2011 End: 11-09-2011 PREDNISONE TABS 2 PREDNISONE TABS [id number] Tuyet Elizabeth MD pregabalin 50 mg oral capsule (6 sources) Start: 08-13-2024 End: 09-12-2024 take 1 capsule by mouth twice daily pregabalin (Lyrica) 50 MG capsule Indications: Ventral hernia without obstruction or gangrene Take 1 capsule (50 mg) by mouth 2 times daily. 60 capsule 08/13/2024 08/24/2024 Discontinued (Therapy completed) Start: 08-13-2024 End: 08-13-2024 take 25 mg by mouth twice daily 25 mg, Oral, 2 times d aily, First dose on 08/13/24 at 1015 Prochlorperazine (20 sources) Phenothiazine Start: 07-09-2025 End: 07-10-2025 take 1 tablet by mouth every six hours as needed for nausea and vomiting prochlorperazine (Compazine) tablet 10 mg Start: 02-21-2025 End: 02-21-2025 take 5 mg intravenously every six hours as needed for nausea and vomiting 5 mg, IntraVENous, Every 6 hours PRN, nausea, vomiting, Starting on [place] 02/21/25 at 0611 Start: 09-02-2024 End: 09-02-2024 take 10 mg intravenously every six hours as needed for nausea and vomiting 10 mg, IntraVENous, Every 6 hours PRN, nausea, vomiting, Starting on 09/02/24 at 1048, Give IV if patient is unable to take orally. Give IM if patient is unable to take orally and does not have IV access. Start: 08-07-2024 End: 08-07-2024 10 mg, IntraVENous, Once, On Tue08/07/24 at 0230, For 1 dose Start: 10-20-2023 End: 10-27-2023 take 1 tablet by mouth every eight hours as needed for nausea prochlorperazine (Compazine) 10 MG tablet Take 1 tablet (10 mg) by mouth every 8 hours as needed for nausea for up to 7 days. 21 tablet 0 10/20/2023 10/27/2023 Active Start: 10-19-2023 End: 10-20-2023 take 10 mg intravenously every six hours as needed for nausea and vomiting prochlorperazine (Compazine) injection 10 mg Start: 09-13-2023 End: 09-15-2023 take 5 mg intravenously every six hours as needed for nausea and vomiting prochlorperazine (Compazine) injection 5 mg Start: 06-30-2023 End: 07-04-2023 take 1 tablet by mouth every six hours as needed Prochlorperazine 5 MG tablet Take 1 tablet by mouth every 6 hours as needed for Refractory Nausea/Vomiting for up to 4 days. 12 tablet 0 06/30/2023 07/04/2023 Active Start: 06-28-2023 End: 06-30-2023 take 1 tablet by mouth every six hours as needed Prochlorperazine (COMPAZINE) tablet 5 mg Start: 06-28-2023 End: 06-28-2023 Prochlorperazine (COMPAZINE) injection 10 mg Start: 03-12-2023 End: 08-31-2023 take 2 tablets by mouth every six hours as needed prochlorperazine (COMPAZINE) 5 mg tablet Take 2 tablets by mouth every 6 hours as needed. 16 tablet 0 03/12/2023 08/31/2023 Discontinued (Course of therapy completed) Start: 03-17-2021 End: 03-17-2021 prochlorperazine (COMPAZINE) injection 10 mg Comment on above: Take 2 tablets by mo [facility] [place] every 6 hours as needed. promethazine hydrochloride 25 mg oral tablet (20 sources) Phenothiazine Start: End: take 1 tablet by mouth every eight hours as needed for nausea and vomiting 12.5 mg, Oral, Every 8 hours PRN, nausea, vomiting, Starting on Tue07/09/25 at 0354 Start: 07-08-2025 End: 07-08-2025 inject 25 mg by intramuscular injection once 25 mg, IntraMUSCular, Once, On 07/08/25 at 1910, For 1 dose, Only to be given as IM injection. Start: 05-24-2025 End: 06-14-2025 take 1 tablet by mouth every six hours as needed for nausea and vomiting promethazine (Phenergan) 12.5 MG tablet Take 1 tablet (12.5 mg) by mouth every 6 hours as needed for nausea or vomiting for up to 7 days. 28 tablet 05/24/2025 06/14/2025 Discontinued (Therapy completed) Start: 05-21-2025 End: 05-24-2025 take 1 tablet by mouth every six hours as needed for nausea and vomiting promethazine (Phenergan) tablet 12.5 mg Start: 05-20-2025 End: 05-20-2025 inject 6.25 mg by intramuscular injection once 6.25 mg, IntraMUSCular, Once, On 05/20/25 at 2010, For 1 dose, Only to be given as IM injection. Start: 05-10-2025 End: 05-11-2025 inject 25 mg by intramuscular injection every six hours as needed for nausea and vomiting 25 mg, IntraMUSCular, Every 6 hours PRN, nausea, vomiting, Starting on Tue05/10/25 at 1338, Only to be given as IM injection. Start: 05-10-2025 End: 05-10-2025 inject 6.25 mg by intramuscular injection every six hours as needed for nausea and vomiting 6.25 mg, IntraMUSCular, Every 6 hours PRN, nausea, vomiting, Starting on Tue05/10/25 at 0152, Only to be given as IM injection. Start: 05-09-2025 End: 05-09-2025 inject 6.25 mg by intramuscular injection once 6.25 mg, IntraMUSCular, Once, On Bella 05/09/25 at 1820, For 1 dose, Only to be given as IM injection. Start: 04-29-2025 take 1 tablet by luis th every eight hours as needed promethazine (Phenergan) 12.5 MG tablet Take 12.5 mg by mouth every 8 hours as needed. 04/29/2025 Active Start: 02-22-2025 End: 02-27-2025 take 1 tablet by mouth every six hours as needed for nausea and vomiting promethazine (Phenergan) 12.5 MG tablet Take 1 tablet (12.5 mg) by mouth every 6 hours as needed for nausea or vomiting for up to 5 days. 20 tablet 02/22/2025 02/27/2025 Active Start: 02-21-2025 End: 02-22-2025 take 1 tablet by mouth every six hours as needed for nausea and vomiting promethazine (Phenergan) tablet 12.5 mg Start: 02-20-2025 End: 02-20-2025 inject 12.5 mg by intramuscular injection once 12.5 mg, IntraMUSCular, Once, On Tue02/20/25 at 2024, For 1 dose, Only to be given as IM injection. Start: 12-25-2024 End: 12-28-2024 take 1 tablet by mouth every six hours as needed for nausea and vomiting promethazine (Phenergan) 25 MG tablet Take 1 tablet (25 mg) by mouth every 6 hours as needed for nausea or vomiting for up to 3 days. 12 tablet 12/25/2024 12/28/2024 Active Start: 11-23-2024 End: 11-23-2024 inject 12.5 mg by intramuscular injection once 12.5 mg, IntraMUSCular, Once, On Tue11/23/24 at 0740, For 1 dose, Only to be given as IM injection. Start: 08-13-2024 End: 08-18-2024 take 1 tablet by mouth every six hours as needed for nausea and vomiting promethazine (Phenergan) 12.5 MG tablet Take 1 tablet (12.5 mg) by mouth every 6 hours as needed for nausea or vomiting for up to 5 days. 20 tablet 08/13/2024 3:35 PM EST 08/13/2024 08/18/2024 Active Start: 08-08-2024 End: 08-13-2024 take 1 tablet by mouth every six hours as needed for nausea and vomiting promethazine (Phenergan) tablet 25 mg Start: 07-08-2024 End: 07-22-2024 take 1 tablet by mouth every eight hours as needed for nausea and vomiting promethazine (Phenergan) 25 MG tablet Take 1 tablet (25 mg) by mouth every 8 hours as needed for nausea or vomiting for up to 14 days. 42 tablet 07/08/2024 07/22/2024 Active Start: 07-08-2024 End: 07-08-2024 inject 25 mg by intramuscular injection once 25 mg, IntraMUSCular, Once, On 07/08/24 at 0840, For 1 dose, Only to be given as IM injection. Start: 04-24-2024 End: 04-26-2024 take 1 tablet by mouth every six hours as needed for nausea and vomiting promethazine (Phenergan) tablet 12.5 mg Start: 04-24-2024 End: 04-24-2024 inject 12.5 mg by intramuscular injection once 12.5 mg, IntraMUSCular, Once, On Tue04/24/24 at 0615, For 1 dose, Only to be given as IM injection. Start: 04-15-2024 End: 04-15-2024 inject 12.5 mg by intramuscular injection once 12.5 mg, IntraMUSCular, Once, On Tue04/15/24 at 0940, For 1 dose, Only to be given as IM injection. Start: 04-13-2024 End: 05-03-2024 take 1 tablet by mouth every six hours as needed for nausea and vomiting promethazine (Phenergan) 12.5 MG tablet Take 1 tablet (12.5 mg) by mouth every 6 hours as needed for nausea or vomiting for up to 7 days. 28 tablet 04/26/2024 05/03/2024 Active Start: 04-10-2024 End: 04-13-2024 take 1 tablet by mouth every six hours as needed for nausea and vomiting promethazine (Phenergan) tablet 12.5 mg Start: 04-10-2024 End: 04-10-2024 inject 6.25 mg by intramuscular injection once 6.25 mg, IntraMUSCular, Once, On Tue04/10/24 at 1110, For 1 dose, Only to be given as IM injection. Start: 12-29-2023 End: 01-03-2024 take 1 tablet by mouth every twenty-four hours as needed for nausea and vomiting promethazine (Phenergan) 25 MG tablet Take 1 tablet (25 mg) by mouth Daily as needed for nausea or vomiting for up to 5 days. 5 tablet 0 12/29/2023 01/03/2024 Active Start: 12-29-2023 End: 12-29-2023 promethazine (Phenergan) inj ection 12.5 mg Start: 10-19-2023 End: 10-19-2023 promethazine (Phenergan) inj ection 6.25 mg Start: 06-29-2023 End: 06-29-2023 Promethazine (PHENERGAN) inj ection 6.25 mg Start: 06-28-2023 End: 06-28-2023 Promethazine (PHENERGAN) tab let 12.5 mg Start: 09-08-2022 take 25 mg by mouth three times daily Promethazine Active 25 MG PO THREE TIMES A DAY September 08, 2022 12:00am Start: 04-01-2020 End: 04-29-2025 take 25 mg rectal route every six hours as needed for nausea and nausea promethazine (PHENERGAN) 25 mg suppository Indications: Nausea 1 Suppository by RECTAL route every 6 hours as needed. 12 Suppository 1 09/21/2024 04/29/2025 Discontinued Start: 01-19-2020 promethazine 2 5 mg rectal suppository Dose : 25 mg = 1 supp, Rectal, q4h, PRN for nausea/vomiting, # 12 supp, 0 Refill(s), Abdominal pain Start Date: 01/19/20 Status: Ordered Medication Dispense Status: Completed Quantity: 12.0 Unit: supp Total Allowed Fills: 1 Fills Dispensed: 0 Indications: Unspecified abdominal pain; Start: 01-06-2020 take 1 dose rectal r oute every six hours as needed for nausea Phenergan Rectal, q6hr, PRN as needed for nausea/vomiting, 0 Refill(s) Start Date: 01/06/20 Status: Ordered Medication Dispense Status: Completed Total Allowed Fills: 1 Fills Dispensed: 0 Start: 11-08-2019 End: 11-30-2024 promethazine 25 mg oral tabl et Dose : 25 mg = 1 tab(s), Oral, q6hr, # 12 tab(s), 0 Refill(s) Start Date: 06/15/20 Stop Date: 06/18/20 Status: Ordered Medication Dispense Status: Completed Quantity: 12.0 Unit: tab(s) Total Allowed Fills: 1 Fills Dispensed: 0 Start: 08-12-2013 End: 09-25-2013 take 25 mg rectal route every six hours as needed Promethazine (Promethegan) 25 MG Suppos. Discontinued 25 MG RECTAL EVERY 6 HOURS NEEDED August 15, 2013 2:41pm September 25, 2013 8:23pm Start: 07-23-2013 End: 08-01-2013 take 25 mg rectal route every six hours as needed Promethazine (Phenergan Suppository) 25 MG Suppos. Discontinued 25 MG RECTAL EVERY 6 HOURS NEEDED July 22, 2013 11:00pm August 01, 2013 3:50pm Start: 07-21-2013 End: 11-15-2013 take 25 mg by mouth every six hours as needed Promethazine Discontinued 25 MG PO EVERY 6 HOURS NEEDED July 20, 2013 11:00pm November 15, 2013 3:33pm End: 11-23-2024 PROMETHAZINE HCL PO Take by mouth. 11/23/2024 Discontinued (Therapy completed) PROMETHAZINE HCL PO Take by mouth. Active propranolol hydrochloride 40 mg oral tablet (2 sources) beta-Adrenergic Ken[place] Start: 11-09-2011 End: 07-31-2013 take 1 tablet by mouth twice daily PROPRANOLOL HCL 40 MG TABS One tablet by mouth twice daily PROPRANOLOL HCL [id number] Tuyet Elizabeth MD 5 ml sodium chloride 9 mg/ml injection (20 sources) Start: 08-06-2025 End: 08-06-2025 10 mL, IntraVENous, Every 12 hours scheduled (2 times per day), First dose on Tue08/06/25 at 0900, Preprocedure Start: 08-06-2025 End: 08-06-2025 take 100 mL intravenously every hour as needed, then take 20 mL intravenously every hour as needed 5-250 mL/hr, IntraVENous, PRN, if patient receiving piggyback infusions and maintenance fluids are not ordered OR KVO fluids to protect IV site / prevent frequent line interruptions/ long duration, Starting on Tue08/06/25 at 0810, Preprocedure, For piggyback infusion, administer at same rate as piggyback for a total of 25 mL. Enter 25 mL into dose field and piggyback rate into rate field of order. If piggyback is infusing at a rate less than 100 mL/hr, enter 25 mL into dose field and 100 mL/hr into rate field of order. For KVO fluids, enter rate of 20 mL/hr or less into rate field of order. Start: 08-06-2025 End: 08-06-2025 take 10 mL intravenously once as needed 10 mL, IntraVENous, PRN, line care, Starting on Tue08/06/25 at 0810, Preprocedure, After every IV line use Start: 07-30-2025 End: 07-30-2025 500 mL, IntraVENous, at 500 mL/hr, Administer over 1 Hours, Once, On Tue07/30/25 at 1825, For 1 dose Start: 07-08-2025 End: 07-08-2025 1,000 mL, IntraVENous, at 1, 000 mL/hr, Administer over 1 Hours, Once, On Tue07/08/25 at 1545, For 1 dose Start: 05-20-2025 End: 05-21-2025 take 100 mL intravenously every hour 100 mL/hr, IntraVENous, Continuous, Starting on Tue05/21/25 at 0000, For 12 hours Start: 05-09-2025 End: 05-09-2025 1,000 mL, IntraVENous, at 1, 000 mL/hr, Administer over 1 Hours, Once, On Tue05/09/25 at 1940, For 1 dose Start: 02-20-2025 End: 02-20-2025 1,000 mL, IntraVENous, at 1, 000 mL/hr, Administer over 1 Hours, Once, On Tue02/20/25 at 1645, For 1 dose Start: 09-07-2024 End: 09-08-2024 take 50 mL intravenously every hour 50 mL/hr, IntraVENous, Continuous, Starting on Tue09/07/24 at 0815, Preprocedure Start: 09-02-2024 End: 09-02-2024 1,000 mL, IntraVENous, at 1, 000 mL/hr, Administer over 1 Hours, Once, On Tue09/02/24 at 1050, For 1 dose Start: 08-08-2024 End: 08-13-2024 10 mL, IntraVENous, Every 12 hours scheduled (2 times per day), First dose on Tue08/08/24 at 0900, Phase II/On Unit Start: 08-08-2024 End: 08-13-2024 Start: 08-08-2024 End: 08-13-2024 Start: 08-07-2024 End: 08-07-2024 1,000 mL, IntraVENous, at 1, 000 mL/hr, Administer over 1 Hours, Once, On Tue08/07/24 at 0230, For 1 dose Start: 04-24-2024 End: 04-24-2024 1,000 mL, IntraVENous, at 1, 000 mL/hr, Administer over 1 Hours, Once, On Tue04/24/24 at 0130, For 1 dose Start: 04-15-2024 End: 04-15-2024 1,000 mL, IntraVENous, at 1, 000 mL/hr, Administer over 1 Hours, Once, On Tue04/15/24 at 0945, For 1 dose Start: 04-10-2024 End: 04-10-2024 1,000 mL, IntraVENous, at 1, 000 mL/hr, Administer over 1 Hours, Once, On Tue04/10/24 at 1125, For 1 dose Start: 12-29-2023 End: 12-29-2023 sodium chloride 0.9 % bolus 1,000 mL Start: 11-29-2023 End: 11-29-2023 sodium chloride 0.9 % infusi on Start: 11-13-2023 End: 11-13-2023 sodium chloride 0.9 % bolus 1,000 mL Start: 10-19-2023 End: 10-20-2023 sodium chloride 0.9 % infusi on Start: 10-19-2023 End: 10-20-2023 sodium chloride 0.9% (NS) fl ush 10 mL Start: 10-19-2023 End: 10-19-2023 sodium chloride 0.9 % bolus 1,000 mL Start: 09-13-2023 End: 09-13-2023 sodium chloride 0.9 % bolus 1,000 mL Start: 06-28-2023 End: 06-30-2023 Sodium chloride 0.9% IV solu tion 250 mL Start: 03-17-2021 End: 03-17-2021 sodium chloride 0.9 % (NS) infusion - ADS Override Pull Start: 03-17-2021 End: 03-17-2021 sodium chloride 0.9% (NS) thiamine 100 mg oral tablet (2 sources) Start: 04-11-2024 End: 04-13-2024 take 100 mg by mouth once daily 100 mg, Oral, Daily, First dose on Tue04/11/24 at 1530 traMADol hydrochloride 50 mg oral tablet (3 sources) Opioid Agonist Start: 05-22-2025 End: 05-23-2025 take 1 tablet by mouth every six hours as needed for pain 50 mg, Oral, Every 6 hours PRN, moderate pain (4-6), Starting on Tue05/22/25 at 1252 Start: 09-08-2022 take 100 mg by mouth twice yobani ly Tramadol Active 100 MG PO TWICE A DAY September 08, 2022 12:00am Problems Active Problems Problem Classification Problem Date Documented Da te Episodic/Chronic Abdominal pain (20 sources) Abdominal pain; Translations: [Unspecified abdominal pain] Onset: 9 Resolved: 9 03-08-2023 Episodic Allergic reactions (4 sources) Allergy status to narcotic agent status; Translations: [Allergy status to other drugs, medicaments and biological substances status] Onset: 3 Episodic Anxiety disorders (20 sources) Generalized anxiety disorder; Translations: [Panic disorder] Onset: 0 09-15-2011 Chronic Attention-deficit, conduct, and disruptive behavior disorders (1 source) Attention deficit hyperactivity disorder, combined type; Translations: [Attention-deficit hyperactivity disorder, combined type] 08-31-2023 Chronic Calculus of urinary tract (2 sources) Kidney stone; Translations: [Calculus of kidney] 08-07-2024 Episodic Diabetes mellitus without complication (20 sources) Type 2 diabetes mellitus; Translations: [Type 2 diabetes mellitus without complications] Onset: 4 02-09-2011 Chronic Esophageal disorders (20 sources) Gastroesophageal reflux disease; Translations: [Gastro-esophageal reflux disease without esophagitis] Onset: 4 06-13-2024 Chronic Headache, including migraine (20 sources) Migraine with aura; Translations: [Migraine] Onset: 2 11-09-2011 Chronic Headache; including migraine (2 sources) Headache; including migraine; Translations: [Headache, unspecified] Onset: 3 Menstrual disorders (20 sources) Menstrual period late; Translations: [Irregular menstruation, unspecified] Onset: 2 10-13-2011 Chronic Miscellaneous mental health disorders (20 sources) Psychogenic hyperventilation; Translations: [Other somatoform disorders] Onset: 4 06-13-2024 Chronic Mood disorders (20 sources) Bipolar disorder; Translations: [Depressive disorder] Onset: 0 09-15-2011 Chronic Other aftercare (1 source) Surgical follow-up; Translations: [Postoperative examination] Episodic Other aftercare (12 sources) Postoperative visit; Translations: [Encounter for other specified surgical aftercare] 08-31-2024 Episodic Other connective tissue disease (1 source) Myofascial pain syndrome; Translations: [Myalgia, other site] 06-12-2025 Episodic Other connective tissue disease (1 source) Myalgia, other site; Translations: [Myofascial pain syndrome] Onset: 5 Episodic Other diseases of kidney and ureters (2 sources) Kidney lesion; Translations: [Disorder of kidney and ureter, unspecified] 12-25-2024 Episodic Other female genital disorders (2 sources) Other specified abnormal uterine and vaginal bleeding; Translations: [Other specified abnormal uterine and vaginal bleeding] Onset: 5 Chronic Other gastrointestinal disorders (3 sources) H/O: abdominal hernia; Translations: [Personal history of other diseases of the digestive system] Episodic Other gastrointestinal disorders (1 source) Bariatric surgery status; Translations: [Bariatric surgery status] Onset: 3 Episodic Other gastrointestinal disorders (3 sources) Intra-abdominal and pelvic swelling, mass and lump, unspecified site; Translations: [Intra-abdominal and pelvic swelling, mass and lump, unspecified site] Onset: 3 Episodic Other gastrointestinal disorders (15 sources) Altered bowel function; Translations: [Other specified symptoms and signs involving the digestive system and abdomen] 11-15-2023 Episodic Other gastrointestinal disorders (2 sources) Digestive symptom; Translations: [Other specified symptoms and signs involving the digestive system and abdomen] 11-29-2023 Episodic Other gastrointestinal disorders (2 sources) Intra-abdominal collection; Translations: [Other ascites] 08-31-2024 Episodic Other gastrointestinal disorders (1 source) Disorder of abdomen; Translations: [Peritoneal adhesions (postprocedural) (postinfection)] 04-29-2025 Episodic Other nervous system disorders (20 sources) Chronic pain syndrome; Translations: [Chronic pain syndrome] Onset: 9 08-06-2019 Chronic Other nervous system disorders (1 source) Chronic pain syndrome; Translations: [Chronic pain syndrome] Onset: 9 Chronic Other nutritional; endocrine; and metabolic disorders (20 sources) Morbid obesity; Translations: [Morbid (severe) obesity due to excess calories] Onset: 1 09-15-2011 Chronic Other nutritional; endocrine; and metabolic disorders (20 sources) Body mass index 40+ - severely obese; Translations: [Morbid (severe) obesity due to excess calories] Onset: 8 03-25-2020 Chronic Other nutritional; endocrine; and metabolic disorders (2 sources) Morbid (severe) obesity due to excess calories; Translations: [Morbid (severe) obesity due to excess calories] Onset: 2 Chronic Other nutritional; endocrine; and metabolic disorders (9 sources) Severe obesity; Translations: [Morbid (severe) obesity due to excess calories] 12-29-2023 Chronic Other nutritional; endocrine; and metabolic disorders (1 source) Obesity caused by energy imbalance; Translations: [Class 2 obesity due to excess calories without serious comorbidity with body mass index (BMI) of 38.0 to 38.9 in adult] 06-14-2025 Chronic Otitis media and related conditions (3 sources) Acute right otitis media; Translations: [Otitis media, unspecified, right ear] Episodic Residual codes; unclassified (1 source) Chronic pain; Translations: [Chronic pain] Chronic Residual codes; unclassified (20 sources) Obstructive sleep apnea syndrome; Translations: [Obstructive sleep apnea (adult) (pediatric)] Onset: 4 06-13-2024 Chronic Residual codes; unclassified (3 sources) Acquired absence of other specified parts of digestive tract; Translations: [Acquired absence of other specified parts of digestive tract] Onset: 3 Episodic Residual codes; unclassified (1 source) Acquired absence of other organs; Translations: [Acquired absence of other organs] Onset: 3 Episodic Residual codes; unclassified (20 sources) History of hernia repair; Translations: [Other specified postprocedural states] 08-24-2024 Episodic Residual codes; unclassified (1 source) Procedure and treatment not carried out due to patient leaving prior to being seen by health care provider; Translations: [Procedure and treatment not carried out due to patient leaving prior to being seen by health care provider] Onset: 5 Episodic Skin and subcutaneous tissue infections (3 sources) Cellulitis of abdominal wall ; Translations: [Cellulitis of abdominal wall] Episodic Substance-related disorders (5 sources) Narcotic drug user; Translations: [Opioid dependence] 05-10-2025 Chronic Syncope (20 sources) Syncope; Translations: [Syncope and collapse] Onset: 4 06-13-2024 Episodic Unclassified (1 source) Unknown / UNK(Unknown) Onset: 8 Unclassified (2 sources) NO SHOW Unclassified (2 sources) BAD PAIN IN HEAD, HAS A HERNIA WELL 03-08-2023 Comment on above: BAD PAIN IN HEAD, SAUNDERS S A HERNIA WELL Past or Other Problems Problem Classification Problem Date Documented Da te Episodic/Chronic Abdominal hernia (20 sources) Irreducible hernia of anterior abdominal wall; Translations: [Hernia of anterior abdominal wall] Onset: 0 Resolved: 4 Episodic Acute bronchitis (4 sources) Acute bronchitis; Translations: [Acute bronchitis, unspecified] Onset: 1 Resolved: 2 10-26-2011 Episodic Cardiac dysrhythmias (20 sources) ECG: sinus tachycardia; Translations: [Tachycardia, unspecified] Onset: 4 06-13-2024 Episodic Chronic obstructive pulmonary disease and bronchiectasis (2 sources) Bronchitis; Translations: [Bronchitis, not specified as acute or chronic] Onset: 1 Resolved: 2 10-13-2011 Episodic Disorders of teeth and jaw (20 sources) Pain; Translations: [Dental caries, unspecified] Onset: 9 Episodic Fluid and electrolyte disorders (20 sources) Hypokalemia, gastrointestinal losses; Translations: [Hypokalemia] Onset: 3 06-13-2024 Episodic Headache, including migraine (20 sources) Headache; Translations: [Pain in face] Onset: 2 11-09-2011 Episodic Intestinal obstruction without hernia (20 sources) Partial obstruction of small bowel; Translations: [Partial intestinal obstruction, unspecified as to cause] Onset: 3 Resolved: 4 03-09-2023 Episodic Joint disorders and dislocations; trauma-related (1 source) Other tear of lateral meniscus, current injury, left knee, initial encounter; Translations: [Other tear of lateral meniscus, current injury, left knee, initial encounter] Onset: 6 07-28-2016 Episodic Nausea and vomiting (20 sources) Nausea, vomiting and diarrhea; Translations: [Nausea with vomiting, unspecified] Onset: 3 11-13-2023 Episodic Other aftercare (1 source) FPC (current) use of opiate analgesic; Translations: [FPC (current) use of opiate analgesic] Onset: 3 Episodic Other aftercare (2 sources) Encounter for other specified surgical aftercare; Translations: [Encounter for other specified surgical aftercare] Onset: 4 Episodic Other circulatory disease (20 sources) Elevated blood-pressure reading without diagnosis of hypertension; Translations: [Elevated blood-pressure reading, without diagnosis of hypertension] Onset: 4 06-13-2024 Episodic Other diseases of kidney and ureters (2 sources) Disorder of kidney and ureter, unspecified; Translations: [Disorder of kidney and ureter, unspecified] Onset: 5 Episodic Other disorders of stomach and duodenum (20 sources) Cyclical vomiting syndrome; Translations: [Cyclical vomiting syndrome unrelated to migraine] Onset: 4 06-13-2024 Episodic Other ear and sense organ disorders (20 sources) Impacted cerumen; Translations: [Impacted cerumen, bilateral] Onset: 4 06-13-2024 Episodic Other gastrointestinal disorders (1 source) Abdominal mass; Translations: [Left lower quadrant abdominal swelling, mass and lump] 08-03-2013 Episodic Other gastrointestinal disorders (2 sources) Mass of left lower quadrant of abdominal wall; Translations: [Left lower quadrant abdominal swelling, mass and lump] Onset: 3 10-05-2021 Episodic Other gastrointestinal disorders (20 sources) Left lower quadrant abdominal swelling, mass and lump; Translations: [Abdominal or pelvic swelling, mass, or lump, left lower quadrant] Onset: 3 10-05-2021 Episodic Other gastrointestinal disorders (3 sources) Personal history of other diseases of the digestive system; Translations: [Personal history of other diseases of the digestive system] Onset: 4 Episodic Other gastrointestinal disorders (2 sources) Other ascites; Translations: [Other ascites] Onset: 4 Episodic Other injuries and conditions due to external causes (20 sources) Injury of right shoulder; Translations: [Unspecified injury of right shoulder and upper arm, initial encounter] Onset: 4 06-13-2024 Episodic Other injuries and conditions due to external causes (20 sources) Injury of foot; Translations: [Unspecified injury of unspecified foot, initial encounter] Onset: 4 06-13-2024 Episodic Other nervous system disorders (20 sources) Postoperative pain ; Translations: [Other acute postprocedural pain] Onset: 4 Resolved: 4 06-13-2024 Episodic Other nervous system disorders (20 sources) Lower abdominal pain; Translations: [Other acute postprocedural pain] Onset: 2 Resolved: 4 06-28-2023 Episodic Other nervous system disorders (2 sources) Other acute postprocedural pain; Translations: [Other acute postprocedural pain] Onset: 4 Episodic Other non-traumatic joint disorders (1 source) Pain in left knee; Translations: [Pain in left knee] Onset: 6 07-29-2016 Episodic Other non-traumatic joint disorders (20 sources) Shoulder pain; Translations: [Pain in unspecified shoulder] Onset: 4 06-13-2024 Episodic Other screening for suspected conditions (not mental disorders or infectious disease) (9 sources) Patient encounter status; Translations: [Encounter for screening for diabetes mellitus] Onset: 5 01-30-2024 Episodic Peripheral and visceral atherosclerosis (20 sources) Omental infarction; Translations: [Acute infarction of intestine, part and extent unspecified] Onset: 9 Resolved: 4 07-11-2019 Episodic Residual codes; unclassified (2 sources) Other specified postprocedural states; Translations: [Other specified postprocedural states] Onset: 4 Episodic Screening and history of mental health and substance abuse codes (4 sources) H/O: anxiety state; Translations: [Personal history of other mental and behavioral disorders] Onset: 3 Episodic Septicemia (except in labor) (20 sources) Sepsis; Translations: [Sepsis, unspecified organism] Onset: 4 06-13-2024 Episodic Spondylosis; intervertebral disc disorders; other back problems (1 source) Neck pain; Translations: [Cervicalgia] Onset: 2 10-13-2011 Episodic Sprains and strains (20 sources) Sprain, elbow joint, medial collateral ligament; Translations: [Ulnar collateral ligament sprain of unspecified elbow, initial encounter] Onset: 4 06-13-2024 Episodic Substance-related disorders (20 sources) Marijuana user; Translations: [Cannabis use, unspecified, uncomplicated] Onset: 4 Episodic Superficial injury; contusion (20 sources) Seroma; Translations: [Contusion of abdominal wall, initial encounter] Onset: 4 09-02-2024 Episodic Unclassified (1 source) ABD PAIN/TRIAGE Onset: 8 Unclassified (3 sources) History of hernia repair 08-31-2024 NEGATED: Highlighted row has not occurred!Residual codes; unclassified (7 sources) Disease Episodic Results Test Name Value Interpretation Reference Range Facility [id number] 08-06-2025 [id number] Normal [facility] Anesthesia Noteon 08-06-2025 Anesthesia Note Normal [facility] Anesthesia Note Normal [facility] Op Noteon 08-06-2025 Op Note Normal [facility] CBC W Auto Differential pane l (Bld)on 07-30-2025 Basophils (Bld) [#/Vol] 0 10*3/uL 0.0 - 0.2 10*3/uL [facility] Basophils/100 WBC (Bld) 0.3 % 0.0 - 2.0 % [facility] Eosinophils (Bld) [#/Vol] 0.1 10*3/uL 0.0 - 0.5 10*3/uL [facility] Eosinophils/100 WBC (Bld) 1.2 % 0.0 - 6.0 % [facility] Erythrocyte distribution width (RBC) [Ratio] 12 % 11.5 - 15.0 % [facility] Hematocrit (Bld) [Volume fraction] 43.5 % 35.0 - 47.0 % [facility] Hemoglobin (Bld) [Mass/Vol] 14.7 g/dL 11.7 - 16.0 g/dL [facility] Immature granulocytes (Bld) [#/Vol] 0 10*3/uL NINF - 0.1 10*3/uL [facility] Immature granulocytes/100 WBC (Bld) 0.4 % 0.0 - 2.0 % [facility] Interpretation and review of laboratory results Abnormal [facility] Lymphocytes (Bld) [#/Vol] 1.4 10*3/uL 1.0 - 4.3 10*3/uL [facility] Lymphocytes/100 WBC (Bld) 19.4 % 15.0 - 45.0 % [facility] MCH (RBC) [Entitic mass] 30.8 pg 26.0 - 34.0 pg [facility] MCHC (RBC) [Mass/Vol] 33.8 % 30.5 - 36.0 % [facility] MCV (RBC) [Entitic vol] 91.2 fL 77.0 - 99.0 fL [facility] Monocytes (Bld) [#/Vol] 0.4 10*3/uL 0.0 - 0.9 10*3/uL [facility] Monocytes/100 WBC (Bld) 5.4 % 5.0 - 13.0 % [facility] Neutrophils (Bld) [#/Vol] 5.3 10*3/uL 1.8 - 7.5 10*3/uL [facility] Neutrophils/100 WBC (Bld) 73.3 % 38.0 - 82.0 % [facility] Nucleated RBC/100 WBC (Bld) [Ratio] 0 % [facility] Platelet mean volume (Bld) [Entitic vol] 8.9 fL Low 9.0 - 12.7 fL [facility] Platelets (Bld) [#/Vol] 255 10*3/uL 140 - 440 10*3/uL [facility] RBC (Bld) [#/Vol] 4.77 10*6/uL 3.80 - 5.20 10*6/uL [facility] WBC (Bld) [#/Vol] 7.2 10*3/uL 3.6 - 10.7 10*3/uL [facility] CBC WITH AUTO DIFFERENTIALon 07-30-2025 Basophils (Bld) [#/Vol] 0.0 10*3/uL Normal 0.0-0.2 [facility] Comment on above: Performed By: #### L [id number] ####Online Banking Specialist: SOL ZENG ([phone])[facility])[address] [place] [address] Basophils/100 WBC (Bld) 0.3 % Normal 0.0-2.0 [facility] Comment on above: Performed By: #### L [id number] ####Online Banking Specialist: SOL ZENG ([phone])[facility])[address] [place] [address] Eosinophils (Bld) [#/Vol] 0.1 10*3/uL Normal 0.0-0.5 [facility] Comment on above: Performed By: #### L [id number] ####Online Banking Specialist: SOL ZENG ([phone])[facility])[address] [place] [address] Eosinophils/100 WBC (Bld) 1.2 % Normal 0.0-6.0 [facility] Comment on above: Performed By: #### L [id number] ####Online Banking Specialist: SOL ZENG ([phone])[facility])[address] [place] [address] Erythrocyte distribution width (RBC) [Ratio] 12.0 % Normal 11.5-15.0 [facility] Comment on above: Performed By: #### L [id number] ####Online Banking Specialist: SOL ZENG ([id number])[address] Hematocrit (Bld) [Volume fraction] 43.5 % Normal 35.0-47.0 [facility] Comment on above: Performed By: #### L [id number] ####Online Banking Specialist: SOL ZENG ([id number])[address] Hemoglobin (Bld) [Mass/Vol] 14.7 g/dL Normal 11.7-16.0 [facility] Comment on above: Performed By: #### L [id number] ####Online Banking Specialist: SOL [phone])[facility])[address] [place] [address] IMMATURE GRANS % 0.4 % Normal 0.0-2.0 [facility] Comment on above: Performed By: #### L [id number] ####Online Banking Specialist: SOL ZENG ([phone])[facility])[address] [place] [address] IMMATURE GRANS ABSOLUTE 0.0 10*3/uL Normal <0.1 [facility] Comment on above: Performed By: #### L [id number] ####Online Banking Specialist: SOL ZENG ([phone])[facility])[address] [place] [address] Lymphocytes (Bld) [#/Vol] 1.4 10*3/uL Normal 1.0-4.3 [facility] Comment on above: Performed By: #### L [id number] ####Online Banking Specialist: SOL ZENG ([phone])[facility])[address] [place] [address] Lymphocytes/100 WBC (Bld) 19.4 % Normal 15.0-45.0 [facility] Comment on above: Performed By: #### L [id number] ####Online Banking Specialist: SOL ZENG ([phone])[facility])[address] [place] [address] MCH (RBC) [Entitic mass] 30.8 pg Normal 26.0-34.0 [facility] Comment on above: Performed By: #### L [id number] ####Online Banking Specialist: SOL ZENG ([phone])[facility])[address] [place] [address] MCHC 33.8 % Normal 30.5-36.0 [facility] Comment on above: Performed By: #### L [id number] ####Online Banking Specialist: SOL ZENG ([phone])[facility])[address] [place] [address] MCV (RBC) [Entitic vol] 91.2 fL Normal 77.0-99.0 [facility] Comment on above: Performed By: #### L [id number] ####Online Banking Specialist: SOL ZENG ([phone])[facility])[address] [place] [address] Monocytes (Bld) [#/Vol] 0.4 10*3/uL Normal 0.0-0.9 [facility] Comment on above: Performed By: #### L [id number] ####Online Banking Specialist: SOL ZENG ([id number])[facility] ([facility])[address] [place] [address] Monocytes/100 WBC (Bld) 5.4 % Normal 5.0-13.0 [facility] Comment on above: Performed By: #### L [id number] ####Online Banking Specialist: SOL ZENG ([phone])[facility])[address] [place] [address] NEUTROPHILS ABSOLUTE 5.3 10*3/uL Normal 1.8-7.5 [facility] Comment on above: Performed By: #### L [id number] ####Online Banking Specialist: SOL ZENG ([phone])[facility])[address] [place] [address] Neutrophils/100 WBC (Bld) 73.3 % Normal 38.0-82.0 [facility] Comment on above: Performed By: #### L [id number] ####Online Banking Specialist: SOL ZENG ([phone])[facility])[address] [place] [address] NRBC 0.0 /100 WBCs Normal 0.0-2.0 [facility] Comment on above: Performed By: #### L [id number] ####Online Banking Specialist: SOL ZENG ([phone])[facility])[address] [place] [address] Platelet mean volume (Bld) [Entitic vol] 8.9 fL Low 9.0-12.7 [facility] Comment on above: Performed By: #### L [id number] ####Online Banking Specialist: SOL ZENG ([id number])[facility] ([facility])[address] [place] [address] Platelets (Bld) [#/Vol] 255 10*3/uL Normal 140-440 [facility] Comment on above: Performed By: #### L [id number] ####Online Banking Specialist: SOL ZENG ([phone])[facility] ([facility])[address] [place] [address] RBC (Bld) [#/Vol] 4.77 10*6/uL Normal 3.80-5.20 [facility] Comment on above: Performed By: #### L [id number] ####Online Banking Specialist: SOL ZENG ([id number])[facility] ([facility])[address] [place] [address] WBC (Bld) [#/Vol] 7.2 10*3/uL Normal 3.6-10.7 [facility] Comment on above: Performed By: #### L [id number] ####Online Banking Specialist: SOL ZENG ([phone])[facility] ([facility])[address] [place] [address] COMPLETE URINALYSIS WITH REF TOM TO [facility] 07-30-2025 BILIRUBIN, TOTAL PRESENCE IN URINE Negative Normal Negative [facility] Comment on above: Performed By: #### L [id number] ####Online Banking Specialist: SOL ZENG ([phone])[facility] ([facility])[address] [place] [address] Clarity (U) Turbid Abnormal Clear [facility] Comment on above: Performed By: #### L [id number] ####Online Banking Specialist: SOL ZENG ([phone])[facility])[address] [place] [address] Color (U) Light Yellow Normal Lt. Yellow [facility] Comment on above: Performed By: #### L [id number] ####Online Banking Specialist: SOL ZENG ([phone])[facility] ([facility])[address] [place] [address] GLUCOSE (MG/DL) IN URINE Normal Normal Normal (<70) [facility] Comment on above: Performed By: #### L [id number] ####Online Banking Specialist: SOL ZENG ([phone])[facility])[address] [place] [address] HEMOGLOBIN PRESENCE IN URINE Negative Normal Negative [facility] Comment on above: Performed By: #### L [id number] ####Online Banking Specialist: SOL ZENG ([phone])[facility] ([facility])[address] [place] [address] Ketones Ql (U) Negative Normal Negative [facility] Comment on above: Performed By: #### L [id number] ####Online Banking Specialist: SOL ZENG ([phone])[facility] ([facility])[address] [place] [address] LEUKOCYTE ESTERASE PRESENCE IN URINE BY TEST STRIP Negative Normal Negative [facility] Comment on above: Performed By: #### L [id number] ####Online Banking Specialist: SOL ZENG ([phone])[facility] ([facility])[address] [place] [address] NITRITE PRESENCE IN URINE Negative Normal Negative [facility] Comment on above: Performed By: #### L [id number] ####Online Banking Specialist: SOL ZENG ([phone])[facility] ([facility])[address] [place] [address] pH (U) 7.0 [pH] Normal 5.0-8.0 [facility] Comment on above: Performed By: #### L [id number] ####Online Banking Specialist: SOL ZENG ([phone])[facility] ([facility])[address] [place] [address] Protein (U) [Mass/Vol] Negative Normal Negative [facility] Comment on above: Performed By: #### L [id number] ####Online Banking Specialist: SOL ZENG ([phone])[facility] ([facility])[address] [place] [address] Specific gravity (U) [Rel density] 1.009 Normal 1.005-1.03 0 [facility] Comment on above: Result Comment: VERA R COMMENTS:A specimen with <=10 WBC is not consistent with inflammation. This specimen will not reflex to a urine culture. Performed By: #### L [id number] ####Online Banking Specialist: SOL ZENG ([phone])[facility])[address] [place] [address] UROBILINOGEN (MG/DL) IN URINE Normal Normal Normal (0-1) [facility] Comment on above: Performed By: #### L [id number] ####Online Banking Specialist: SOL ZENG ([phone])[facility])[address] [place] [address] COMPREHENSIVE METABOLIC PANE Randy 07-30-2025 Albumin [Mass/Vol] 4.5 g/dL Normal 3.1-4.5 [facility] Comment on above: Performed By: #### Rachael ATKINS, LAB17, [id number] ####Online Banking Specialist: SOL ZENG ([phone])[facility] ([facility])[address] [place] [address] ALP [Catalytic activity/Vol] 49 U/L Normal 40-150 [facility] Comment on above: Performed By: #### Rachael AB99, LAB17, [id number] ####Online Banking Specialist: SOL ZENG ([phone])[facility])[address] [place] [address] ALT [Catalytic activity/Vol] 13 U/L Normal <30 [facility] Comment on above: Performed By: #### Rachael AB99, LAB17, [id number] ####Online Banking Specialist: SOL ZENG ([phone])[facility])[address] [place] [address] Anion gap [Moles/Vol] 15 mmol/L High 3-13 [facility] Comment on above: Performed By: #### Rachael AB99, LAB17, [id number] ####Online Banking Specialist: SOL [phone])[facility] ([facility])[address] [place] [address] AST [Catalytic activity/Vol] 16 U/L Normal <34 [facility] Comment on above: Performed By: #### Rachael AB99, LAB17, [id number] ####Online Banking Specialist: SOL ZENG ([phone])[facility] ([facility])[address] [place] [address] Bilirubin [Mass/Vol] 0.4 mg/dL Normal <1.2 [facility] Comment on above: Performed By: #### Rachael AB99, LAB17, [id number] ####Online Banking Specialist: SOL ZENG ([phone])[facility] ([facility])[address] [place] [address] Calcium [Mass/Vol] 9.6 mg/dL Normal 8.4-10.2 [facility] Comment on above: Performed By: #### Rachael ATKINS, LAB17, [id number] ####Online Banking Specialist: SOL ZENG ([phone])[facility] ([facility])[address] [place] [address] [place] Chloride [Moles/Vol] 105 mmol/L Normal 98-107 [facility] Comment on above: Performed By: #### Rachael AB99, LAB17, [id number] ####Online Banking Specialist: SOL ZENG ([phone])[facility] ([facility])[address] [place] [address] [place] CO2 [Moles/Vol] 19 mmol/L Low 22-29 [facility] Comment on above: Performed By: #### Rachael AB99, LAB17, [id number] ####Online Banking Specialist: SOL ZENG ([phone])[facility] ([facility])[address] [place] [address] [place] Creatinine [Mass/Vol] 0.64 mg/dL Normal 0.52-1.02 [facility] Comment on above: Performed By: #### Rachael AB99, LAB17, [id number] ####Online Banking Specialist: SOL ZENG ([phone])[facility] [address] GLOMERULAR FILTRATION RATE ML/MIN/1.73 SQ M.PREDICTED >90.0 Normal >60.0 [facility] Comment on above: Result Comment: Calc ulation based on the Chronic Kidney Disease Epidemiology Collaboration (CKD-EPI) equation refit without adjustment for race Performed By: #### Rachael ATKINS, LAB17, [id number] ####Online Banking Specialist: SOL ZENG ([phone])[address] Glucose [Mass/Vol] 105 mg/dL High 74-100 [facility] Comment on above: Performed By: #### Rachael ATKINS, LAB17, [id number] ####Online Banking Specialist: SOL ZENG ([phone])[address] Potassium [Moles/Vol] 3.2 mmol/L Low 3.5-5.1 [facility] Comment on above: Result Comment: [facility] potassium values may be up to 0.5 mmol/L lower than serum values. Performed By: #### Rachael ATKINS, LAB17, [id number] ####Online Banking Specialist: SOL ZENG ([phone])[address] Protein [Mass/Vol] 7.4 g/dL Normal 6.4-8.3 [facility] Comment on above: Performed By: #### Rachael ATKINS LAB17, [id number] ####Online Banking Specialist: SOL ZENG ([phone])[place] [address] [place] Sodium [Moles/Vol] 139 mmol/L Normal 136-145 [facility] Comment on above: Performed By: #### Rachael ATKINS, LAB17, [id number] ####Online Banking Specialist: SOL ZENG ([phone])[address] Urea nitrogen [Mass/Vol] 7 mg/dL Low 8-21 [facility] Comment on above: Performed By: #### L AB99, LAB17, [id number] ####Online Banking Specialist: SOL ZENG ([phone])[facility] ([facility])[address] [place] [address] CT ABDOMEN PELVIS W CONTRAST on 07-30-2025 CT ABDOMEN PELVIS W CONTRAST Normal [facility] CT Abdomen and Pelvis W cont rast Oscar 07-30-2025 1. 1.5 cm exophytic mass arising from the posterior left mid kidney measures slightly above simple fluid attenuation, mildly increased in size from 1.2 cm in 2022. This may be a proteinaceous or hemorrhagic cyst although soft tissue mass cannot be excluded. MRI with and without contrast recommended for further evaluation. 2. No acute inflammatory process seen in the abdomen or pelvis. Report Dictated on Electronically Signed By: Celina Moura DR Electronically Signed Date/Time: 07/30/2025 4:20 PM T [facility] 1985 [id number] Exam Date/Time: 07/30/2025 15:47 Procedure: CT ABDOMEN PELVIS W CONTRAST Ordering Provider: MARTINEZ VI-TRINH Reason For Exam: Acute abdominal pain, known post-surgical changes. Associated with worsening pain today and syncope EXAM: CT Abdomen and Pelvis With Intravenous Contrast CLINICAL INDICATION: Acute abdominal pain, known post-surgical changes. Associated with worsening pain today and syncope TECHNIQUE: Axial computed tomography images of the abdomen and pelvis with intravenous contrast. This CT exam was performed using one or more of the following dose reduction techniques: automated exposure control, adjustment of the mA and/or kV according to patient size, and/or use of iterative reconstruction technique. COMPARISON: 07/08/2025, 09/13/2023. FINDINGS: LUNG BASES: No significant abnormality. No mass. No consolidation. ABDOMEN: LIVER: No significant abnormality. No mass. GALLBLADDER AND BILE DUCTS: Cholecystectomy. No ductal dilation. PANCREAS: No significant abnormality. No mass. No ductal dilation. SPLEEN: No significant abnormality. No splenomegaly. ADRENALS: No significant abnormality. No mass. KIDNEYS AND URETERS: 1.5 cm exophytic mass arising from the posterior left mid kidney (series 3: Image 51) measures slightly above simple fluid attenuation, mildly increased in size from 1.2 cm in 202. Several fluid attenuation cysts are seen bilaterally in the kidneys, requiring no further follow-up. No hydronephrosis. STOMACH AND BOWEL: Postsurgical changes in left mid abdominal small bowel. Mild colonic diverticulosis. No obstruction. No mucosal thickening. PELVIS: APPENDIX: No findings to suggest acute appendicitis. BLADDER: No significant abnormality. No mass. REPRODUCTIVE: Probable bilateral fallopian tube clips. ABDOMEN and PELVIS: INTRAPERITONEAL SPACE: No significant abnormality. No free air. No significant fluid collection. BONES/JOINTS: 1.3 cm sclerotic focus in the T9 vertebral body is unchanged from 202, likely a bone island. No acute fracture. SOFT TISSUES: Postsurgical changes in the anterior abdominal wall with several fat-containing ventral hernias, the largest of which measures up to 7.4 x 1.8 x 3.4 cm. VASCULATURE: No significant abnormality. No abdominal aortic aneurysm. LYMPH NODES: No significant abnormality. No enlarged lymph nodes. [facility] Martell, Celina Langford MD - 07/30/2025 Patient Name: MEL WALL : 1985 [facility]#: [id number] Exam Date/Time: 07/30/2025 15:47 Procedure: CT ABDOMEN PELVIS W CONTRAST Ordering Provider: MARTINEZ VI-TRINH Reason For Exam: Acute abdominal pain, known post-surgical changes. Associated with worsening pain today and syncope EXAM: CT Abdomen and Pelvis With Intravenous Contrast CLINICAL INDICATION: Acute abdominal pain, known post-surgical changes. Associated with worsening pain today and syncope TECHNIQUE: Axial computed tomography images of the abdomen and pelvis with intravenous contrast. This CT exam was performed using one or more of the following dose reduction techniques: automated exposure control, adjustment of the mA and/or kV according to patient size, and/or use of iterative reconstruction technique. COMPARISON: 07/08/2025, 09/13/2023. FINDINGS: LUNG BASES: No significant abnormality. No mass. No consolidation. ABDOMEN: LIVER: No significant abnormality. No mass. GALLBLADDER AND BILE DUCTS: Cholecystectomy. No ductal dilation. PANCREAS: No significant abnormality. No mass. No ductal dilation. SPLEEN: No significant abnormality. No splenomegaly. ADRENALS: No significant abnormality. No mass. KIDNEYS AND URETERS: 1.5 cm exophytic mass arising from the posterior left mid kidney (series 3: Image 51) measures slightly above simple fluid attenuation, mildly increased in size from 1.2 cm in 202. Several fluid attenuation cysts are seen bilaterally in the kidneys, requiring no further follow-up. No hydronephrosis. STOMACH AND BOWEL: Postsurgical changes in left mid abdominal small bowel. Mild colonic diverticulosis. No obstruction. No mucosal thickening. PELVIS: APPENDIX: No findings to suggest acute appendicitis. BLADDER: No significant abnormality. No mass. REPRODUCTIVE: Probable bilateral fallopian tube clips. ABDOMEN and PELVIS: INTRAPERITONEAL SPACE: No significant abnormality. No free air. No significant fluid collection. BONES/JOINTS: 1.3 cm sclerotic focus in the T9 vertebral body is unchanged from 202, likely a bone island. No acute fracture. SOFT TISSUES: Postsurgical changes in the anterior abdominal wall with several fat-containing ventral hernias, the largest of which measures up to 7.4 x 1.8 x 3.4 cm. VASCULATURE: No significant abnormality. No abdominal aortic aneurysm. LYMPH NODES: No significant abnormality. No enlarged lymph nodes. IMPRESSION: 1. 1.5 cm exophytic mass arising from the posterior left mid kidney measures slightly above simple fluid attenuation, mildly increased in size from 1.2 cm in 2023. This may be a proteinaceous or hemorrhagic cyst although soft tissue mass cannot be excluded. MRI with and without contrast recommended for further evaluation. 2. No acute inflammatory process seen in the abdomen or pelvis. Report Dictated on Electronically Signed By: Celina Moura DR Electronically Signed Date/Time: 07/30/2025 4:20 PM EDT [facility] Radiology Study observation (narrative) [facility] CT Abdomen and Pelvis W cont rast IVOrdered By: Celina Moura on 07-30-2025 [facility] Work Phone: Comprehensive metabolic 1998 panelon 07-30-2025 Albumin [Mass/Vol] 4.5 g/dL 3.1 - 4.5 g/dL [facility] ALP [Catalytic activity/Vol] 49 U/L 40 - 150 U/L [facility] ALT [Catalytic activity/Vol] 13 U/L NINF - 30 U/L [facility] Anion gap [Moles/Vol] 15 mmol/L High 3 - 13 mmol/L [facility] AST [Catalytic activity/Vol] 16 U/L NINF - 34 U/L [facility] Bilirubin [Mass/Vol] 0.4 mg/dL NINF - 1.2 mg/dL [facility] Calcium [Mass/Vol] 9.6 mg/dL 8.4 - 10. 2 mg/dL [facility] Chloride [Moles/Vol] 105 mmol/L 98 - 10 7 mmol/L [facility] CO2 [Moles/Vol] 19 mmol/L Low 22 - 29 mmol/L [facility] Creatinine [Mass/Vol] 0.64 mg/dL 0.52 - 1.02 mg/dL [facility] GFR/1.73 sq M.predicted (S/P/Bld) [Vol rate/Area] - PINF [facility] Comment on above: Calculation based on the Chronic Kidney Disease Epidemiology Collaboration (CKD-EPI) equation refit without adjustment for race Glucose [Mass/Vol] 105 mg/dL High 74 - 100 mg/dL [facility] Interpretation and review of laboratory results Abnormal [facility] Potassium [Moles/Vol] 3.2 mmol/L Low 3.5 - 5.1 mmol/L [facility] Comment on above: Plasma potassium kelsy ues may be up to 0.5 mmol/L lower than serum values. Protein [Mass/Vol] 7.4 g/dL 6.4 - 8.3 g/dL [facility] Sodium [Moles/Vol] 139 mmol/L 136 - 145 mmol/L [facility] Urea nitrogen [Mass/Vol] 7 mg/dL Low 8 - 21 mg/dL [facility] ECG 12-LEADon 07-30-2025 ECG 12-LEAD IMPRESSION: Sinus rhythm Electronically Signed On 07-30-2025 17:16:50 EDT by Juana Allen Normal [facility] ED Nursing Noteon 07-30-2025 ED Nursing Note Normal [facility] ED Provider Noteon ED Provider Note Normal [facility] HCG QUALITATIVE URINEon 07-11 Beta HCG ( test) Ql (U) Negative Normal Negative [facility] Comment on above: Result Comment: Plea se note: Very dilute urine specimens, as indicated by a low specific gravity, may not contain loan representative levels of hCG. If is still suspected, a first morning urine specimen should be collected 48 hours later and tested.ORDER COMMENTS: is the most common reason for HCG in urine, although choriocarcinoma, hydatidiform mole, and certain nontrophoblastic malignancies also result in detectable urinary HCG levels. Sensitivity = 20mIU/mL. Performed By: #### L [id number] ####Online Banking Specialist: SOL ZENG ([phone])[facility])[address] [place] [address] HIGH SENSITIVITY TROPONIN, S ERIAL BASELINEon 07-30-2025 TROPONIN HS SERIAL BASELINE <3 Normal <=14 [facility] Comment on above: Result Comment: In i ndividuals presenting with symptoms > 2h, a baseline troponin <= 5 ng/L suggests acutecardiac injury is unlikely and further serial testing is generally not indicated. Performed By: #### L AB99, LAB17, [id number] ####Online Banking Specialist: SOL ZENG ([phone])[facility] ([facility])[address] [place] [address] LIPASEon 07-30-2025 Lipase [Catalytic activity/Vol] 18 U/L Normal <55 [facility] Comment on above: Performed By: #### L AB99, LAB17, [id number] ####Online Banking Specialist: SOL ZENG ([phone])[facility])[address] [place] [address] Laboratory - Chemistry and C hemistry - challengeon 07-30-2025 Lipase [Catalytic activity/Vol] 18 U/L NINF - 55 U/L [facility] Laboratory - Chemistry and C hemistry - challengeOrdered By: Jose Sanderson on 07-30-2025 Beta HCG ( test) Ql Negative Negative [facility] Comment on above: Please note: Very di lute urine specimens, as indicated by a low specific gravity, may not contain loan representative levels of hCG. If is still suspected, a first morning urine specimen should be collected 48 hours later and tested. Beta HCG ( test) Ql (U) is the most common reason for HCG in urine, although choriocarcinoma, hydatidiform mole, and certain nontrophoblastic malignancies also result in detectable urinary HCG levels. Sensitivity = 20mIU/mL. [facility] Lipase [Catalytic activity/V ol]on 07-30-2025 Interpretation and review of laboratory results Normal [facility] Vaprema No Panel InformationOrdered By: Juana Allen on 07-30-2025 P Broadus 75 degrees [facility] Work Phone: LA Interval 144 ms [facility] Work Phone: QRS [place] 34 degrees [facility] Work Phone: QRSD Interval 86 ms [facility] Work Phone: QT Interval 363 ms [facility] Work Phone: QTC Interval 458 ms [facility] Work Phone: T Wave Broadus 38 degrees [facility] Work Phone: [facility] Work Phone: No Panel Informationon 07-30 Sinus rhythm Electronically Signed On 07-30-2025 17:16:50 EDT by Juana Allen CV Juana Dover MD - 07/30/2025 IMPRESSION: Sinus rhythm Electronically Signed On 07-30-2025 17:16:50 EDT by Juana Allen [facility] Interpretation and review of laboratory results Normal [facility] Troponin HS Serial Baseline ng/L NINF - 14 ng/L [facility] Comment on above: In individuals prese nting with symptoms > 2h, a baseline troponin <= 5 ng/L suggests acute cardiac injury is unlikely and further serial testing is generally not indicated. [facility] No Panel InformationOrdered By: Jose Sanderson on 07-30-2025 [facility] Urinalysis complete panel (U )Ordered By: Brennan Young on 07-30-2025 Bilirubin Ql (U) Negative Negative mg/dL [facility] Clarity (U) Turbid Abnormal Clear [facility] Color (U) Light Yellow Lt. Yellow [facility] Glucose Ql (U) Normal Normal (<70) mg/dL [facility] Hemoglobin Ql (U) Negative Negative mg/dL [facility] Interpretation and review of laboratory results Abnormal [facility] Ketones (U) [Mass/Vol] Negative Negative mg/dL [facility] Leukocyte esterase Test strip Ql (U) Negative Negative Peace/uL [facility] Nitrite Ql (U) Negative Negative [facility] pH (U) 7.0 [pH] 5.0 - 8.0 pH [facility] Protein (U) [Mass/Vol] Negative Negative mg/dL [facility] Specific gravity (U) [Rel density] 1.009 1.005 - 1.030 [facility] Urobilinogen (U) [Mass/Vol] Normal Normal (0-1) mg/dL [facility] A specimen with <=10 WBC is not consistent with inflammation. This specimen will not reflex to a urine culture. [facility] Vital signsOrdered By: Serena Allen on 07-30-2025 Heart rate 95 /min bpm [facility] Work Phone: [phone] 07-10-2025 [id number] Normal [facility] [id number] Normal [facility] [id number] Received [facility] for HC POA consult. Attempted to visit patient, but she was with medical staff in the room. Normal [facility] BASIC METABOLIC PANELon 10-0 Anion gap [Moles/Vol] 6 mmol/L Normal 3-13 [facility] Comment on above: Performed By: #### L AB15 ####Online Banking Specialist: SOL ZENG ([phone])[address] Calcium [Mass/Vol] 8.4 mg/dL Normal 8.4-10.2 [facility] Comment on above: Performed By: #### L AB15 ####Online Banking Specialist: SOL [phone])[address] Chloride [Moles/Vol] 108 mmol/L High 98-107 [facility] Comment on above: Performed By: #### L AB15 ####Online Banking Specialist: SOL [phone])[facility])[address] [place] [address] [place] CO2 [Moles/Vol] 23 mmol/L Normal 22-29 [facility] Comment on above: Performed By: #### L AB15 ####Online Banking Specialist: SOL ZENG ([phone])[facility] [place] [address] Creatinine [Mass/Vol] 0.56 mg/dL Low 0.57-1.11 [facility] Comment on above: Performed By: #### L AB15 ####Online Banking Specialist: SOL ZENG ([phone])[facility])[address] [place] [address] GLOMERULAR FILTRATION RATE ML/MIN/1.73 SQ M.PREDICTED >90.0 Normal >60.0 [facility] Comment on above: Result Comment: Calc ulation based on the Chronic Kidney Disease Epidemiology Collaboration (CKD-EPI) equation refit without adjustment for race Performed By: #### L AB15 ####Online Banking Specialist: SOL ZNEG ([phone])[facility] [place] [address] [place] Glucose [Mass/Vol] 91 mg/dL Normal 74-100 [facility] Comment on above: Performed By: #### L AB15 ####Online Banking Specialist: SOL ZENG ([phone])[facility])[address] [place] [address] [place] Potassium [Moles/Vol] 3.8 mmol/L Normal 3.5-5.1 [facility] Comment on above: Result Comment: [facility] potassium values may be up to 0.5 mmol/L lower than serum values. Performed By: #### L [id number] ####Online Banking Specialist: SOL ZENG ([phone])[facility])[address] [place] [address] [place] Sodium [Moles/Vol] 137 mmol/L Normal 136-145 [facility] Comment on above: Performed By: #### L AB15 ####Online Banking Specialist: SOL ZENG ([phone])[facility])[address] [place] [address] Urea nitrogen [Mass/Vol] 7 mg/dL Low 8-21 [facility] Comment on above: Performed By: #### L AB15 ####Online Banking Specialist: SOL ZENG ([phone])[facility] [place] [address] Basic metabolic 1998 panelon 07-10-2025 Anion gap [Moles/Vol] 6 mmol/L 3 - 13 mmol/L [facility] [employer] Calcium [Mass/Vol] 8.4 mg/dL 8.4 - 10. 2 mg/dL [facility] Chloride [Moles/Vol] 108 mmol/L High 98 - 10 7 mmol/L [facility] CO2 [Moles/Vol] 23 mmol/L 22 - 29 mmol/L [facility] Creatinine [Mass/Vol] 0.56 mg/dL Low 0.57 - 1.11 mg/dL [facility] GFR/1.73 sq M.predicted (S/P/Bld) [Vol rate/Area] - PINF [facility] Comment on above: Calculation based on the Chronic Kidney Disease Epidemiology Collaboration (CKD-EPI) equation refit without adjustment for race Glucose [Mass/Vol] 91 mg/dL 74 - 100 mg/dL [facility] Interpretation and review of laboratory results Abnormal [facility] [employer] Potassium [Moles/Vol] 3.8 mmol/L 3.5 - 5.1 mmol/L [facility] Comment on above: Plasma potassium kelsy ues may be up to 0.5 mmol/L lower than serum values. Sodium [Moles/Vol] 137 mmol/L 136 - 145 mmol/L [facility] [employer] Urea nitrogen [Mass/Vol] 7 mg/dL Low 8 - 21 mg/dL [facility] CBC W Auto Differential pane l (Bld)on 07-10-2025 Basophils (Bld) [#/Vol] 0 10*3/uL 0.0 - 0.2 10*3/uL [facility] Basophils/100 WBC (Bld) 0.4 % 0.0 - 2.0 % [facility] Eosinophils (Bld) [#/Vol] 0.2 10*3/uL 0.0 - 0.5 10*3/uL [facility] Eosinophils/100 WBC (Bld) 2.3 % 0.0 - 6.0 % [facility] Erythrocyte distribution width (RBC) [Ratio] 12.3 % 11.5 - 15.0 % [facility] Hematocrit (Bld) [Volume fraction] 35.5 % 35.0 - 47.0 % [facility] Hemoglobin (Bld) [Mass/Vol] 11.8 g/dL 11.7 - 16.0 g/dL [facility] Immature granulocytes (Bld) [#/Vol] 0 10*3/uL NINF - 0.1 10*3/uL [facility] Immature granulocytes/100 WBC (Bld) 0.4 % 0.0 - 2.0 % [facility] Interpretation and review of laboratory results Normal [facility] Lymphocytes (Bld) [#/Vol] 2.7 10*3/uL 1.0 - 4.3 10*3/uL [facility] Lymphocytes/100 WBC (Bld) 37.9 % 15.0 - 45.0 % [facility] MCH (RBC) [Entitic mass] 30.9 pg 26.0 - 34.0 pg [facility] MCHC (RBC) [Mass/Vol] 33.2 % 30.5 - 36.0 % [facility] MCV (RBC) [Entitic vol] 92.9 fL 77.0 - 99.0 fL [facility] Monocytes (Bld) [#/Vol] 0.4 10*3/uL 0.0 - 0.9 10*3/uL [facility] Monocytes/100 WBC (Bld) 5.4 % 5.0 - 13.0 % [facility] Neutrophils (Bld) [#/Vol] 3.8 10*3/uL 1.8 - 7.5 10*3/uL [facility] Neutrophils/100 WBC (Bld) 53.6 % 38.0 - 82.0 % [facility] Nucleated RBC/100 WBC (Bld) [Ratio] 0 % [facility] Platelet mean volume (Bld) [Entitic vol] 9.2 fL 9.0 - 12.7 fL [facility] Platelets (Bld) [#/Vol] 232 10*3/uL 140 - 440 10*3/uL [facility] RBC (Bld) [#/Vol] 3.82 10*6/uL 3.80 - 5.20 10*6/uL [facility] WBC (Bld) [#/Vol] 7 10*3/uL 3.6 - 10.7 10*3/uL [facility] CBC WITH AUTO DIFFERENTIALon 07-10-2025 Basophils (Bld) [#/Vol] 0.0 10*3/uL Normal 0.0-0.2 [facility] Comment on above: Performed By: #### L [id number] ####Online Banking Specialist: SOL ZENG ([phone])[facility])[address] [place] [address] Basophils/100 WBC (Bld) 0.4 % Normal 0.0-2.0 [facility] Comment on above: Performed By: #### L [id number] ####Online Banking Specialist: SOL ZENG ([phone])[facility])[address] [place] [address] Eosinophils (Bld) [#/Vol] 0.2 10*3/uL Normal 0.0-0.5 [facility] Comment on above: Performed By: #### L [id number] ####Online Banking Specialist: SOL ZENG ([phone])[facility])[address] [place] [address] Eosinophils/100 WBC (Bld) 2.3 % Normal 0.0-6.0 [facility] Comment on above: Performed By: #### L [id number] ####Online Banking Specialist: SOL ZENG ([phone])[facility])[address] [place] [address] Erythrocyte distribution width (RBC) [Ratio] 12.3 % Normal 11.5-15.0 [facility] Comment on above: Performed By: #### L [id number] ####Online Banking Specialist: SOL ZENG ([phone])[facility])[address] [place] [address] Hematocrit (Bld) [Volume fraction] 35.5 % Normal 35.0-47.0 [facility] Comment on above: Performed By: #### L [id number] ####Online Banking Specialist: SOL ZENG ([phone])[facility])[address] [place] [address] Hemoglobin (Bld) [Mass/Vol] 11.8 g/dL Normal 11.7-16.0 [facility] Comment on above: Performed By: #### L [id number] ####Online Banking Specialist: SOL ZENG ([phone])[facility])[address] [place] [address] IMMATURE GRANS % 0.4 % Normal 0.0-2.0 [facility] Comment on above: Performed By: #### L [id number] ####Online Banking Specialist: SOL ZENG ([phone])[facility])[address] [place] [address] IMMATURE GRANS ABSOLUTE 0.0 10*3/uL Normal <0.1 [facility] Comment on above: Performed By: #### L [id number] ####Online Banking Specialist: SOL ZENG ([phone])[facility])[address] [place] [address] Lymphocytes (Bld) [#/Vol] 2.7 10*3/uL Normal 1.0-4.3 [facility] Comment on above: Performed By: #### L [id number] ####Online Banking Specialist: SOL ZENG ([phone])[facility])[address] [place] [address] Lymphocytes/100 WBC (Bld) 37.9 % Normal 15.0-45.0 [facility] Comment on above: Performed By: #### L [id number] ####Online Banking Specialist: SOL ZENG ([phone])[facility])[address] [place] [address] MCH (RBC) [Entitic mass] 30.9 pg Normal 26.0-34.0 [facility] Comment on above: Performed By: #### L [id number] ####Online Banking Specialist: SOL ZENG ([phone])[facility])[address] [place] [address] MCHC 33.2 % Normal 30.5-36.0 [facility] Comment on above: Performed By: #### L [id number] ####Online Banking Specialist: SOL ZENG ([phone])[facility])[address] [place] [address] MCV (RBC) [Entitic vol] 92.9 fL Normal 77.0-99.0 [facility] Comment on above: Performed By: #### L [id number] ####Online Banking Specialist: SOL ZENG ([phone])[facility])[address] [place] [address] Monocytes (Bld) [#/Vol] 0.4 10*3/uL Normal 0.0-0.9 [facility] Comment on above: Performed By: #### L [id number] ####Online Banking Specialist: SOL ZENG ([phone])[facility])[address] [place] [address] Monocytes/100 WBC (Bld) 5.4 % Normal 5.0-13.0 [facility] Comment on above: Performed By: #### L [id number] ####Online Banking Specialist: SOL ZENG ([phone])[facility])[address] [place] [address] NEUTROPHILS ABSOLUTE 3.8 10*3/uL Normal 1.8-7.5 [facility] Comment on above: Performed By: #### L [id number] ####Online Banking Specialist: SOL ZENG ([phone])[facility])[address] [place] [address] Neutrophils/100 WBC (Bld) 53.6 % Normal 38.0-82.0 [facility] Comment on above: Performed By: #### L [id number] ####Online Banking Specialist: SOL ZENG ([phone])[facility])[address] [place] [address] NRBC 0.0 /100 WBCs Normal 0.0-2.0 [facility] Comment on above: Performed By: #### L [id number] ####Online Banking Specialist: SOL ZENG ([phone])[facility])[address] [place] [address] Platelet mean volume (Bld) [Entitic vol] 9.2 fL Normal 9.0-12.7 [facility] Comment on above: Performed By: #### L [id number] ####Online Banking Specialist: SOL ZENG ([phone])[facility] ([facility])[address] [place] [address] Platelets (Bld) [#/Vol] 232 10*3/uL Normal 140-440 [facility] Comment on above: Performed By: #### L [id number] ####Online Banking Specialist: SOL ZENG ([phone])[facility])[address] [place] [address] RBC (Bld) [#/Vol] 3.82 10*6/uL Normal 3.80-5.20 [facility] Comment on above: Performed By: #### L [id number] ####Online Banking Specialist: SOL ZENG ([phone])[facility])[address] [place] [address] WBC (Bld) [#/Vol] 7.0 10*3/uL Normal 3.6-10.7 [facility] Comment on above: Performed By: #### L [id number] ####Online Banking Specialist: SOL ZENG ([phone])[facility])[address] [place] [address] Nursing Noteon 07-10-2025 Nursing Note Went over discharge paperwork with pt and boyfriend at bedside. Both were agreeable and understood. IV taken out. Pt got self dressed and gathered all belongings. Waiting on transport. Normal [facility] Progress Noteon 07-10-2025 Progress Note Nutrition rescreen completed. Patient referred to the Dietitian due to poor nutrition intake. NICKY Maldonado Normal [facility] BASIC METABOLIC PANELon 09-3 Anion gap [Moles/Vol] 6 mmol/L Normal 3-13 [facility] Comment on above: Performed By: #### L AB15, [id number] ####Online Banking Specialist: SOL ZENG ([phone])[facility] ([facility])[address] [place] [address] Calcium [Mass/Vol] 8.1 mg/dL Low 8.4-10.2 [facility] Comment on above: Performed By: #### L AB15, [id number] ####Online Banking Specialist: SOL ZENG ([phone])[facility] ([facility])[address] [place] [address] Chloride [Moles/Vol] 108 mmol/L High 98-107 [facility] Comment on above: Performed By: #### L AB15, [id number] ####Online Banking Specialist: SOL ZENG ([phone])[facility] [place] [address] CO2 [Moles/Vol] 23 mmol/L Normal 22-29 [facility] Comment on above: Performed By: #### L AB15, [id number] ####Online Banking Specialist: SOL ZENG ([phone])[facility] ([facility])[address] [place] [address] Creatinine [Mass/Vol] 0.61 mg/dL Normal 0.57-1.11 [facility] Comment on above: Performed By: #### L AB15, [id number] ####Online Banking Specialist: SOL ZENG ([phone])[facility] ([facility])[address] [place] [address] GLOMERULAR FILTRATION RATE ML/MIN/1.73 SQ M.PREDICTED >90.0 Normal >60.0 [facility] Comment on above: Result Comment: Calc ulation based on the Chronic Kidney Disease Epidemiology Collaboration (CKD-EPI) equation refit without adjustment for race Performed By: #### L AB15, [id number] ####Online Banking Specialist: SOL ZENG ([phone])[facility] ([facility])[address] [place] [address] [place] Glucose [Mass/Vol] 90 mg/dL Normal 74-100 [facility] Comment on above: Performed By: #### L AB15, [id number] ####Online Banking Specialist: SOL ZENG ([phone])[facility])[address] [place] [address] Potassium [Moles/Vol] 3.4 mmol/L Low 3.5-5.1 [facility] Comment on above: Result Comment: [facility] potassium values may be up to 0.5 mmol/L lower than serum values. Performed By: #### L AB15, [id number] ####Online Banking Specialist: SOL ZENG ([phone])[facility] ([facility])[address] [place] [address] Sodium [Moles/Vol] 137 mmol/L Normal 136-145 [facility] Comment on above: Performed By: #### L AB15, [id number] ####Online Banking Specialist: SOL ZENG ([phone])[facility])[address] [place] [address] Urea nitrogen [Mass/Vol] 11 mg/dL Normal 8-21 [facility] Comment on above: Performed By: #### L AB15, [id number] ####Online Banking Specialist: SOL ZENG ([phone])[facility])[address] [place] [address] Basic metabolic 1998 panelon 07-09-2025 Anion gap [Moles/Vol] 6 mmol/L 3 - 13 mmol/L [facility] Calcium [Mass/Vol] 8.1 mg/dL Low 8.4 - 10. 2 mg/dL [facility] Chloride [Moles/Vol] 108 mmol/L High 98 - 10 7 mmol/L [facility] CO2 [Moles/Vol] 23 mmol/L 22 - 29 mmol/L [facility] Creatinine [Mass/Vol] 0.61 mg/dL 0.57 - 1.11 mg/dL [facility] GFR/1.73 sq M.predicted (S/P/Bld) [Vol rate/Area] - PINF [facility] Comment on above: Calculation based on the Chronic Kidney Disease Epidemiology Collaboration (CKD-EPI) equation refit without adjustment for race Glucose [Mass/Vol] 90 mg/dL 74 - 100 mg/dL [facility] Interpretation and review of laboratory results Abnormal [facility] Potassium [Moles/Vol] 3.4 mmol/L Low 3.5 - 5.1 mmol/L [facility] Comment on above: Plasma potassium kelsy ues may be up to 0.5 mmol/L lower than serum values. Sodium [Moles/Vol] 137 mmol/L 136 - 145 mmol/L [facility] Urea nitrogen [Mass/Vol] 11 mg/dL 8 - 21 mg/dL [facility] CBC W Auto Differential pane l (Bld)on 07-09-2025 Basophils (Bld) [#/Vol] 0 10*3/uL 0.0 - 0.2 10*3/uL [facility] Basophils/100 WBC (Bld) 0.3 % 0.0 - 2.0 % [facility] Eosinophils (Bld) [#/Vol] 0.1 10*3/uL 0.0 - 0.5 10*3/uL [facility] Eosinophils/100 WBC (Bld) 1.6 % 0.0 - 6.0 % [facility] Erythrocyte distribution width (RBC) [Ratio] 12.3 % 11.5 - 15.0 % [facility] Hematocrit (Bld) [Volume fraction] 34.1 % Low 35.0 - 47.0 % [facility] Hemoglobin (Bld) [Mass/Vol] 11.4 g/dL Low 11.7 - 16.0 g/dL [facility] Immature granulocytes (Bld) [#/Vol] 0 10*3/uL NINF - 0.1 10*3/uL [facility] Immature granulocytes/100 WBC (Bld) 0.4 % 0.0 - 2.0 % [facility] Interpretation and review of laboratory results Abnormal [facility] Lymphocytes (Bld) [#/Vol] 2.7 10*3/uL 1.0 - 4.3 10*3/uL [facility] Lymphocytes/100 WBC (Bld) 33.8 % 15.0 - 45.0 % [facility] MCH (RBC) [Entitic mass] 31.3 pg 26.0 - 34.0 pg [facility] MCHC (RBC) [Mass/Vol] 33.4 % 30.5 - 36.0 % [facility] MCV (RBC) [Entitic vol] 93.7 fL 77.0 - 99.0 fL [facility] Monocytes (Bld) [#/Vol] 0.4 10*3/uL 0.0 - 0.9 10*3/uL [facility] Monocytes/100 WBC (Bld) 5.5 % 5.0 - 13.0 % [facility] Neutrophils (Bld) [#/Vol] 4.6 10*3/uL 1.8 - 7.5 10*3/uL [facility] Neutrophils/100 WBC (Bld) 58.4 % 38.0 - 82.0 % [facility] Nucleated RBC/100 WBC (Bld) [Ratio] 0 % [facility] Platelet mean volume (Bld) [Entitic vol] 9 fL 9.0 - 12.7 fL [facility] Platelets (Bld) [#/Vol] 223 10*3/uL 140 - 440 10*3/uL [facility] RBC (Bld) [#/Vol] 3.64 10*6/uL Low 3.80 - 5.20 10*6/uL [facility] WBC (Bld) [#/Vol] 8 10*3/uL 3.6 - 10.7 10*3/uL [facility] CBC WITH AUTO DIFFERENTIALon 07-09-2025 Basophils (Bld) [#/Vol] 0.0 10*3/uL Normal 0.0-0.2 [facility] Comment on above: Performed By: #### L [id number] ####Online Banking Specialist: SOL ZENG ([phone])[address] Basophils/100 WBC (Bld) 0.3 % Normal 0.0-2.0 [facility] Comment on above: Performed By: #### L [id number] ####Online Banking Specialist: SOL [phone])[address] Eosinophils (Bld) [#/Vol] 0.1 10*3/uL Normal 0.0-0.5 [facility] Comment on above: Performed By: #### L [id number] ####Online Banking Specialist: SOL [phone])[facility])[address] [place] [address] Eosinophils/100 WBC (Bld) 1.6 % Normal 0.0-6.0 [facility] Comment on above: Performed By: #### L [id number] ####Online Banking Specialist: SOL ZENG ([phone])[facility])[address] [place] [address] Erythrocyte distribution width (RBC) [Ratio] 12.3 % Normal 11.5-15.0 [facility] Comment on above: Performed By: #### L [id number] ####Online Banking Specialist: SOL ZENG ([phone])[facility])[address] [place] [address] Hematocrit (Bld) [Volume fraction] 34.1 % Low 35.0-47.0 [facility] Comment on above: Performed By: #### L [id number] ####Online Banking Specialist: SOL ZENG ([phone])[facility])[address] [place] [address] Hemoglobin (Bld) [Mass/Vol] 11.4 g/dL Low 11.7-16.0 [facility] Comment on above: Performed By: #### L [id number] ####Online Banking Specialist: SOL ZENG ([phone])[facility])[address] [place] [address] IMMATURE GRANS % 0.4 % Normal 0.0-2.0 [facility] Comment on above: Performed By: #### L [id number] ####Online Banking Specialist: SOL ZENG ([phone])[facility])[address] [place] [address] IMMATURE GRANS ABSOLUTE 0.0 10*3/uL Normal <0.1 [facility] Comment on above: Performed By: #### L [id number] ####Online Banking Specialist: SOL ZENG ([phone])[facility])[address] [place] [address] Lymphocytes (Bld) [#/Vol] 2.7 10*3/uL Normal 1.0-4.3 [facility] Comment on above: Performed By: #### L [id number] ####Online Banking Specialist: SOL ZENG ([phone])[facility])[address] [place] [address] Lymphocytes/100 WBC (Bld) 33.8 % Normal 15.0-45.0 [facility] Comment on above: Performed By: #### L [id number] ####Online Banking Specialist: SOL ZENG ([phone])[facility])[address] [place] [address] MCH (RBC) [Entitic mass] 31.3 pg Normal 26.0-34.0 [facility] Comment on above: Performed By: #### L [id number] ####Online Banking Specialist: SOL ZENG ([phone])[facility])[address] [place] [address] MCHC 33.4 % Normal 30.5-36.0 [facility] Comment on above: Performed By: #### L [id number] ####Online Banking Specialist: SOL ZENG ([phone])[facility])[address] [place] [address] MCV (RBC) [Entitic vol] 93.7 fL Normal 77.0-99.0 [facility] Comment on above: Performed By: #### L [id number] ####Online Banking Specialist: SOL ZENG ([phone])[facility])[address] [place] [address] Monocytes (Bld) [#/Vol] 0.4 10*3/uL Normal 0.0-0.9 [facility] Comment on above: Performed By: #### L [id number] ####Online Banking Specialist: SOL ZENG ([phone])[facility])[address] [place] [address] Monocytes/100 WBC (Bld) 5.5 % Normal 5.0-13.0 [facility] Comment on above: Performed By: #### L [id number] ####Online Banking Specialist: SOL ZENG ([phone])[facility] ([facility])[address] [place] [address] NEUTROPHILS ABSOLUTE 4.6 10*3/uL Normal 1.8-7.5 [facility] Comment on above: Performed By: #### L [id number] ####Online Banking Specialist: SOL ZENG ([phone])[facility] ([facility])[address] [place] [address] Neutrophils/100 WBC (Bld) 58.4 % Normal 38.0-82.0 [facility] Comment on above: Performed By: #### L [id number] ####Online Banking Specialist: SOL ZENG ([phone])[facility])[address] [place] [address] NRBC 0.0 /100 WBCs Normal 0.0-2.0 [facility] Comment on above: Performed By: #### L [id number] ####Online Banking Specialist: SOL ZENG ([phone])[facility] ([facility])[address] [place] [address] Platelet mean volume (Bld) [Entitic vol] 9.0 fL Normal 9.0-12.7 [facility] Comment on above: Performed By: #### L [id number] ####Online Banking Specialist: SOL ZENG ([phone])[facility] ([facility])[address] [place] [address] [place] Platelets (Bld) [#/Vol] 223 10*3/uL Normal 140-440 [facility] Comment on above: Performed By: #### L [id number] ####Online Banking Specialist: SOL ZENG ([phone])[facility] ([facility])[address] [place] [address] [place] RBC (Bld) [#/Vol] 3.64 10*6/uL Low 3.80-5.20 [facility] Comment on above: Performed By: #### L [id number] ####Online Banking Specialist: SOL ZENG ([phone])[facility] ([facility])[address] [place] [address] WBC (Bld) [#/Vol] 8.0 10*3/uL Normal 3.6-10.7 [facility] Comment on above: Performed By: #### L [id number] ####Online Banking Specialist: SOL ZENG ([phone])[facility] ([facility])[address] [place] [address] Consulton 07-09-2025 Consult Normal [facility] ED Nursing Noteon 07-09-2025 ED Nursing Note Normal [facility] ED Nursing Note Pt reports 8/10 pain at this time and requesting pain medication, RN educated pt on PRN pain medications and pt requesting IV medication be ordered due to increasing nausea. Physician notified. Normal [facility] Laboratory - Chemistry and C hemistry - challengeon 07-09-2025 Magnesium [Mass/Vol] 1.9 mg/dL 1.6 - 2 .6 mg/dL [facility] MAGNESIUMon 07-09-2025 Magnesium [Mass/Vol] 1.9 mg/dL Normal 1.6-2.6 [facility] Comment on above: Result Comment: VERA R COMMENTS:Higher values can be expected in females during menses. Performed By: #### L [id number], [id number] ####Online Banking Specialist: SOL ZENG ([phone])[facility] ([facility])[address] [place] [address] Magnesium [Mass/Vol]on 07-09 Interpretation and review of laboratory results Normal [facility] Higher values can be expected in females during menses. [facility] Progress Noteon 07-09-2025 Progress Note Normal [facility] Progress Note Normal [facility] RF Upper gastrointestinal tr act and Small bowel Single view W contrast Sarath 07-09-2025 1. Thickened gastric folds, this could be due to nondistention and the use of water-soluble contrast. 2. Small bowel demonstrates no convincing mucosal abnormality or dilatation. Contrast reaches the cecum within 60 minutes. Report Dictated on Electronically Signed By: Regis Chakraborty MD Electronically Signed Date/Time: 07/09/2025 10:52 [facility] 1985 [id number] Exam Date/Time: 07/09/2025 07:25 Procedure: FL UPPER GI SINGLE CONTRAST WITH SMALL BOWEL FOLLOW THROUGH Ordering Provider: BLANCO FREDRICK Reason For Exam: Eval obstipation and anstomosis UPPER GI AND SMALL BOWEL SERIES. CLINICAL INDICATOR: Abdominal pain. 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 History of prior small bowel resection. History of multiple hernia repairs. COMPARISON: 05/10/2025 TECHNIQUE: Gastrografin was administered orally per ordering physician request. The small bowel was then studied with serial images up to and including 60 minutes. FLUOROSCOPY DOSE: Ka,r= 61.69 mGy FINDINGS: Preliminary image demonstrates anastomotic sutures within the right upper quadrant. Anastomotic sutures are noted within the pelvis from prior small bowel resection. There are tubal ligation clips seen within the pelvis. Gastrografin was administered in the upright position only. The esophagus demonstrates no obvious mucosal abnormality or narrowing. The gastric folds appear mildly thickened, but this could also be due to nondistention. The small bowel demonstrates no convincing mucosal abnormality or dilatation. Contrast reaches the cecum within 60 minutes. The terminal ileum was not isolated as a separate structure. [facility] Regis Chakraborty MD - 07/09/2025 Patient Name: [facility]EL WALL : 1985 [id number] Exam Date/Time: 07/09/2025 07:25 Procedure: FL UPPER GI SINGLE CONTRAST WITH SMALL BOWEL FOLLOW THROUGH Ordering Provider: BLANCO FREDRICK Reason For Exam: Eval obstipation and anstomosis UPPER GI AND SMALL BOWEL SERIES. CLINICAL INDICATOR: Abdominal pain. 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 History of prior small bowel resection. History of multiple hernia repairs. COMPARISON: 05/10/2025 TECHNIQUE: Gastrografin was administered orally per ordering physician request. The small bowel was then studied with serial images up to and including 60 minutes. FLUOROSCOPY DOSE: Ka,r= 61.69 mGy FINDINGS: Preliminary image demonstrates anastomotic sutures within the right upper quadrant. Anastomotic sutures are noted within the pelvis from prior small bowel resection. There are tubal ligation clips seen within the pelvis. Gastrografin was administered in the upright position only. The esophagus demonstrates no obvious mucosal abnormality or narrowing. The gastric folds appear mildly thickened, but this could also be due to nondistention. The small bowel demonstrates no convincing mucosal abnormality or dilatation. Contrast reaches the cecum within 60 minutes. The terminal ileum was not isolated as a separate structure. IMPRESSION: 1. Thickened gastric folds, this could be due to nondistention and the use of water-soluble contrast. 2. Small bowel demonstrates no convincing mucosal abnormality or dilatation. Contrast reaches the cecum within 60 minutes. Report Dictated on Electronically Signed By: Regis Chakraborty MD Electronically Signed Date/Time: 07/09/2025 10:52 AM EDT [employer] Radiology Study observation (narrative) BULX RF Upper gastrointestinal tr act and Small bowel Single view W contrast POOrdered By: Regis Chakraborty on 07-09-2025 [employer] Work Phone: CBC W Auto Differential pane l (Bld)on 07-08-2025 Basophils (Bld) [#/Vol] 0 10*3/uL 0.0 - 0.2 10*3/uL [employer] Basophils/100 WBC (Bld) 0.4 % 0.0 - 2.0 % [employer] Eosinophils (Bld) [#/Vol] 0.1 10*3/uL 0.0 - 0.5 10*3/uL [employer] Eosinophils/100 WBC (Bld) 1.1 % 0.0 - 6.0 % [employer] Erythrocyte distribution width (RBC) [Ratio] 12.2 % 11.5 - 15.0 % [employer] Hematocrit (Bld) [Volume fraction] 37.7 % 35.0 - 47.0 % [employer] Hemoglobin (Bld) [Mass/Vol] 12.8 g/dL 11.7 - 16.0 g/dL [facility] [employer] Immature granulocytes (Bld) [#/Vol] 0 10*3/uL NINF - 0.1 10*3/uL [employer] Immature granulocytes/100 WBC (Bld) 0.2 % 0.0 - 2.0 % [employer] Interpretation and review of laboratory results Abnormal [facility] Lymphocytes (Bld) [#/Vol] 1.8 10*3/uL 1.0 - 4.3 10*3/uL [facility] Lymphocytes/100 WBC (Bld) 22.7 % 15.0 - 45.0 % [facility] MCH (RBC) [Entitic mass] 30.8 pg 26.0 - 34.0 pg [facility] MCHC (RBC) [Mass/Vol] 34 % 30.5 - 36.0 % [facility] MCV (RBC) [Entitic vol] 90.8 fL 77.0 - 99.0 fL [facility] Monocytes (Bld) [#/Vol] 0.4 10*3/uL 0.0 - 0.9 10*3/uL [facility] Monocytes/100 WBC (Bld) 5 % 5.0 - 13.0 % [facility] Neutrophils (Bld) [#/Vol] 5.7 10*3/uL 1.8 - 7.5 10*3/uL [facility] Neutrophils/100 WBC (Bld) 70.6 % 38.0 - 82.0 % [facility] Nucleated RBC/100 WBC (Bld) [Ratio] 0 % [facility] Platelet mean volume (Bld) [Entitic vol] 8.8 fL Low 9.0 - 12.7 fL [facility] Comment on above: MPV is a calculated measurement using platelet volume ratio Platelets (Bld) [#/Vol] 257 10*3/uL 140 - 440 10*3/uL [facility] RBC (Bld) [#/Vol] 4.15 10*6/uL 3.80 - 5.20 10*6/uL [facility] WBC (Bld) [#/Vol] 8.1 10*3/uL 3.6 - 10.7 10*3/uL [facility] CBC WITH AUTO DIFFERENTIALon 07-08-2025 Basophils (Bld) [#/Vol] 0.0 10*3/uL Normal 0.0-0.2 [facility] Comment on above: Performed By: #### L [id number] ####Online Banking Specialist: TRACY PERDOMO ([phone])[facility])[address] [place] [address] Basophils/100 WBC (Bld) 0.4 % Normal 0.0-2.0 [facility] Comment on above: Performed By: #### L [id number] ####Online Banking Specialist: TRACY PERDOMO ([phone])[facility])[address] Eosinophils (Bld) [#/Vol] 0.1 10*3/uL Normal 0.0-0.5 [facility] Comment on above: Performed By: #### L [id number] ####Online Banking Specialist: TRACY PERDOMO ([phone])[facility] ([facility])[address] Eosinophils/100 WBC (Bld) 1.1 % Normal 0.0-6.0 [facility] Comment on above: Performed By: #### L [id number] ####Online Banking Specialist: TRACY PERDOMO ([phone])[facility] ([facility])[address] Erythrocyte distribution width (RBC) [Ratio] 12.2 % Normal 11.5-15.0 [facility] Comment on above: Performed By: #### L [id number] ####Online Banking Specialist: TRACY PERDOMO ([phone])[facility] ([facility])[address] [place] [address] Hematocrit (Bld) [Volume fraction] 37.7 % Normal 35.0-47.0 [facility] Comment on above: Performed By: #### L [id number] ####Online Banking Specialist: TRACY PERDOMO ([phone])[facility] ([facility])[address] Hemoglobin (Bld) [Mass/Vol] 12.8 g/dL Normal 11.7-16.0 [facility] Comment on above: Performed By: #### L [id number] ####Online Banking Specialist: TRACY PERDOMO ([phone])[facility] ([facility])[address] IMMATURE GRANS % 0.2 % Normal 0.0-2.0 [facility] Comment on above: Performed By: #### L [id number] ####Online Banking Specialist: TRACY VEEMARIELENA ([phone])[facility] ([facility])[address] IMMATURE GRANS ABSOLUTE 0.0 10*3/uL Normal <0.1 [facility] Comment on above: Performed By: #### L [id number] ####Online Banking Specialist: TRACY PERDOMO ([phone])[facility] ([facility])[address] Lymphocytes (Bld) [#/Vol] 1.8 10*3/uL Normal 1.0-4.3 [facility] Comment on above: Performed By: #### L [id number] ####Online Banking Specialist: TRACY VEEMARIELENA ([phone])[facility] ([facility])[address] Lymphocytes/100 WBC (Bld) 22.7 % Normal 15.0-45.0 [facility] Comment on above: Performed By: #### L [id number] ####Online Banking Specialist: TRACY PERDOMO ([phone])[facility] ([facility])[address] MCH (RBC) [Entitic mass] 30.8 pg Normal 26.0-34.0 [facility] Comment on above: Performed By: #### L [id number] ####Online Banking Specialist: TRACY PERDOMO ([phone])[facility] ([facility])[address] MCHC 34.0 % Normal 30.5-36.0 [facility] Comment on above: Performed By: #### L [id number] ####Online Banking Specialist: TRACY PERDOMO ([phone])[facility])[address] MCV (RBC) [Entitic vol] 90.8 fL Normal 77.0-99.0 [facility] Comment on above: Performed By: #### L [id number] ####Online Banking Specialist: TRACY PERDOMO ([phone])[facility])[address] Monocytes (Bld) [#/Vol] 0.4 10*3/uL Normal 0.0-0.9 [facility] Comment on above: Performed By: #### L [id number] ####Online Banking Specialist: TRACY PERDOMO ([phone])[facility])[address] [place] [address] [facility] Monocytes/100 WBC (Bld) 5.0 % Normal 5.0-13.0 [facility] Comment on above: Performed By: #### L [id number] ####Online Banking Specialist: TRACY PERDOMO ([phone])[facility])[address] NEUTROPHILS ABSOLUTE 5.7 10*3/uL Normal 1.8-7.5 [facility] Comment on above: Performed By: #### L [id number] ####Online Banking Specialist: TRACY PERDOMO ([phone])[facility])[address] [place] [id number] [place] Neutrophils/100 WBC (Bld) 70.6 % Normal 38.0-82.0 [facility] Comment on above: Performed By: #### L [id number] ####Online Banking Specialist: TRACY PERDOMO ([phone])[facility])[address] NRBC 0.0 /100 WBCs Normal 0.0-2.0 [facility] Comment on above: Performed By: #### L [id number] ####Online Banking Specialist: TRACY PERDOMO ([phone])[facility] [employer] ([facility])[address] Platelet mean volume (Bld) [Entitic vol] 8.8 fL Low 9.0-12.7 [facility] Comment on above: Result Comment: MPV is a calculated measurement using platelet volume ratio Performed By: #### L [id number] ####Online Banking Specialist: TRACY PERDOMO ([phone])[facility] ([facility])[address] [place] [address] Platelets (Bld) [#/Vol] 257 10*3/uL Normal 140-440 [facility] Comment on above: Performed By: #### L [id number] ####Online Banking Specialist: TRACY PERDOMO ([phone])[facility] ([facility])[address] [place] [address] RBC (Bld) [#/Vol] 4.15 10*6/uL Normal 3.80-5.20 [facility] Comment on above: Performed By: #### L [id number] ####Online Banking Specialist: TRACY PERDOMO ([phone])[facility] ([facility])[address] [place] [address] WBC (Bld) [#/Vol] 8.1 10*3/uL Normal 3.6-10.7 [facility] Comment on above: Performed By: #### L [id number] ####Online Banking Specialist: TRACY PERDOMO ([phone])[facility] ([facility])[address] COMPLETE URINALYSIS WITH REF TOM TO CULTUREon 07-08-2025 AMORPHOUS CRYSTALS (#/HPF) IN URINE Moderate Abnormal Negative [facility] Comment on above: Performed By: #### L [id number] ####Online Banking Specialist: TRACY PERDOMO ([phone])[facility])[address] [place] [address] [facility] BACTERIA (#/HPF) IN URINE Moderate Abnormal Negative [facility] Comment on above: Performed By: #### L [id number] ####Online Banking Specialist: TRACY PERDOMO ([phone])[facility])[address] [place] [address] [facility] BILIRUBIN, TOTAL PRESENCE IN URINE Negative Normal Negative [facility] Comment on above: Performed By: #### L [id number] ####Online Banking Specialist: TRACY PERDOMO ([phone])[facility])[address] Clarity (U) Turbid Abnormal Clear [facility] Comment on above: Performed By: #### L [id number] ####Online Banking Specialist: TRACY PERDOMO ([phone])[facility])[address] Color (U) Yellow Normal Lt. Yellow [facility] Comment on above: Performed By: #### L [id number] ####Online Banking Specialist: TRACY PERDOMO ([phone])[facility])[address] [place] [address] [place] GLUCOSE (MG/DL) IN URINE Normal Normal Normal (<70) [facility] Comment on above: Performed By: #### L [id number] ####Online Banking Specialist: TRACY PERDOMO ([phone])[facility])[address] [place] [address] [place] HEMOGLOBIN PRESENCE IN URINE Negative Normal Negative [facility] Comment on above: Performed By: #### L [id number] ####Online Banking Specialist: TRACY PERDOMO ([phone])[facility])[address] Ketones Ql (U) Trace Abnormal Negative [facility] Comment on above: Performed By: #### L [id number] ####Online Banking Specialist: TRACY PERDOMO ([phone])[facility] ([facility])[address] LEUKOCYTE ESTERASE PRESENCE IN URINE BY TEST STRIP Negative Normal Negative [facility] Comment on above: Performed By: #### L [id number] ####Online Banking Specialist: TRACY PERDOMO ([phone])[facility] ([facility])[address] MUCUS (#/LPF) IN URINE SEDIMENT Moderate Abnormal Negative [facility] Comment on above: Performed By: #### L [id number] ####Online Banking Specialist: TRACY PERDOMO ([phone])[facility] ([facility])[address] NITRITE PRESENCE IN URINE Negative Normal Negative [facility] Comment on above: Performed By: #### L [id number] ####Online Banking Specialist: TRACY PERDOMO ([phone])[facility] ([facility])[address] pH (U) 6.0 [pH] Normal 5.0-8.0 [facility] Comment on above: Performed By: #### L [id number] ####Online Banking Specialist: TRACY PERDOMO ([phone])[facility] ([facility])[address] Protein (U) [Mass/Vol] 20 mg/dL Abnormal Negative [facility] Comment on above: Performed By: #### L [id number] ####Online Banking Specialist: TRACY PERDOMO ([phone])[facility] ([facility])[address] [place] [address] [place] RBC (#/HPF) IN URINE SEDIMENT 3-5 Abnormal 0-2 [facility] Comment on above: Performed By: #### L [id number] ####Online Banking Specialist: TRACY PERDOMO ([phone])[facility] ([facility])[address] Specific gravity (U) [Rel density] 1.032 High 1.005-1.03 0 [facility] Comment on above: Result Comment: VERA Dickey COMMENTS:A specimen with <=10 WBC is not consistent with inflammation. This specimen will not reflex to a urine culture. Performed By: #### L [id number] ####Online Banking Specialist: TRACY PERDOMO ([phone])[facility] ([facility])[address] Specimen volume (U) 12 mL Normal [facility] Comment on above: Performed By: #### L [id number] ####Online Banking Specialist: TRACY PERDOMO ([phone])[facility] ([facility])[address] SQUAMOUS EPITHELIAL CELLS (#/HPF) IN URINE SEDIMENT 26-50 Abnormal 3-5 [facility] Comment on above: Performed By: #### L [id number] ####Online Banking Specialist: TRACY PERDOMO ([phone])[facility])[address] UROBILINOGEN (MG/DL) IN URINE 2 mg/dL Abnormal Normal (0-1) [facility] Comment on above: Performed By: #### L [id number] ####Online Banking Specialist: TRACY PERDOMO ([phone])[facility] ([facility])[address] [place] [address] [place] WBC (LEUKOCYTE) (#/HPF) IN URINE SEDIMENT 3-5 Normal 0-5 [facility] Comment on above: Performed By: #### L [id number] ####Online Banking Specialist: TRACY PERDOMO ([phone])[facility] ([facility])[address] [place] [id number] [facility] COMPREHENSIVE METABOLIC PANE Randy 07-08-2025 Albumin [Mass/Vol] 3.9 g/dL Normal 3.5-5.0 [facility] Comment on above: Performed By: #### L AB17, LAB99, [id number] ####Online Banking Specialist: TRACY PERDOMO ([phone])[facility] ([facility])[address] ALP [Catalytic activity/Vol] 37 U/L Low 40-150 [facility] Comment on above: Performed By: #### Rachael MCCLAIN17, LAB99, [id number] ####Online Banking Specialist: TRACY PERDOMO ([phone])[facility] ([facility])[address] [place], [place] [address] [place] [address] ALT [Catalytic activity/Vol] 13 U/L Normal <30 [facility] Comment on above: Performed By: #### L AB17, LAB99, [id number] ####Online Banking Specialist: RTACY PERDOMO ([phone])[facility] ([facility])[address] Anion gap [Moles/Vol] 10 mmol/L Normal 3-13 [facility] Comment on above: Performed By: #### L AB17, LAB99, [id number] ####Online Banking Specialist: TRACY PERDOMO ([phone])[facility] ([facility])[address] AST [Catalytic activity/Vol] 14 U/L Normal <34 [facility] Comment on above: Performed By: #### L AB17, LAB99, [id number] ####Online Banking Specialist: TRACY PERDOMO ([phone])[facility])[address] [place] [address] [place] Bilirubin [Mass/Vol] 0.3 mg/dL Normal <1.2 [facility] Comment on above: Performed By: #### Rachael AB17, LAB99, [id number] ####Online Banking Specialist: TRACY PERDOMO ([phone])[facility])[address] [place] [address] [facility] Calcium [Mass/Vol] 8.6 mg/dL Normal 8.4-10.2 [facility] Comment on above: Performed By: #### Rachael MCCLAIN17, LAB99, [id number] ####Online Banking Specialist: TRACY PERDOMO ([phone])[facility])[address] [place] [address] [place] Chloride [Moles/Vol] 107 mmol/L Normal 98-107 [facility] Comment on above: Performed By: #### Rachael AB17, LAB99, [id number] ####Online Banking Specialist: TRACY PERDOMO ([phone])[facility])[address] [place] [address] [place] CO2 [Moles/Vol] 22 mmol/L Normal 22-29 [facility] Comment on above: Performed By: #### Rachael SOMMER, LAB99, [id number] ####Online Banking Specialist: TRACY PERDOMO ([phone])[facility])[address] [place] [address] [place] Creatinine [Mass/Vol] 0.65 mg/dL Normal 0.57-1.11 [facility] Comment on above: Performed By: #### L AB17, LAB99, [id number] ####Online Banking Specialist: TRACY PERDOMO ([phone])[facility] ([facility])[address] [place] [address] [facility] GLOMERULAR FILTRATION RATE ML/MIN/1.73 SQ M.PREDICTED >90.0 Normal >60.0 [facility] Comment on above: Result Comment: Calc ulation based on the Chronic Kidney Disease Epidemiology Collaboration (CKD-EPI) equation refit without adjustment for race Performed By: #### Rachael AB17, LAB99, [id number] ####Online Banking Specialist: TRACY PERDOMO ([phone])[facility] ([facility])[address] [place] [address] [place] Glucose [Mass/Vol] 127 mg/dL High 74-100 [facility] Comment on above: Performed By: #### Rachael AB17, LAB99, [id number] ####Online Banking Specialist: TRACY PERDOMO ([phone])[facility] ([facility])[address] [place] [id number] [place] Potassium [Moles/Vol] 3.5 mmol/L Normal 3.5-5.1 [facility] Comment on above: Result Comment: [facility] potassium values may be up to 0.5 mmol/L lower than serum values. Performed By: #### Rachael AB17, LAB99, [id number] ####Online Banking Specialist: TRACY PERDOMO ([phone])[facility] ([facility])[address] [place] [address] [place] Protein [Mass/Vol] 6.8 g/dL Normal 6.4-8.3 [facility] Comment on above: Performed By: #### Rachael SOMMER, LAB99, [id number] ####Online Banking Specialist: TRACY PERDOMO ([phone])[facility])[address] [place] [address] [place] Sodium [Moles/Vol] 139 mmol/L Normal 136-145 [facility] Comment on above: Performed By: #### Rachael AB17, LAB99, [id number] ####Online Banking Specialist: TRACY PERDOMO ([phone])[facility])[address] [place] [id number] [place] Urea nitrogen [Mass/Vol] 10 mg/dL Normal 8-21 [facility] Comment on above: Performed By: #### L AB17, LAB99, [id number] ####Online Banking Specialist: TRACY PERDOMO ([phone])[facility] ([facility])[address] [place] [address] [facility] [address] ABDOMEN PELVIS W CONTRAST on 07-08-2025 CT ABDOMEN PELVIS W CONTRAST Normal [facility] CT Abdomen and Pelvis W cont rast Oscar 07-08-2025 1. Postsurgical change and focal fluid within the left pelvis may represent fluid within anastomosis or distended bowel loop versus focal fluid within mesenteric leaf, but is nonspecific. Clinical correlation and follow-up as indicated. 2. No other acute findings or significant interval change. Please see above for further details. Report Dictated on Electronically Signed By: Sunil Thompson MD Electronically Signed Date/Time: 07/08/2025 5:40 PM EDT [facility] 1985 [id number] Exam Date/Time: 07/08/2025 16:52 Procedure: CT ABDOMEN PELVIS W CONTRAST Ordering Provider: OROZCO BRIGID Reason For Exam: Bowel obstruction suspected CT ABDOMEN AND PELVIS WITH CONTRAST CLINICAL INDICATION: Bowel obstruction suspected TECHNIQUE: CT scan of the abdomen and pelvis, with IV contrast. Multiplanar reformations. Dose reduction was employed with automated exposure control. COMPARISON: May,. FINDINGS: Abdomen: Visualized lung bases grossly unremarkable. Gallbladder surgically absent. Liver without significant abnormality. Spleen without significant abnormality. Pancreas without significant abnormality. Kidneys without significant abnormality. Punctate calcification again noted in the right kidney without significant hydronephrosis. Probable small, bilateral renal cyst(s) also similar. Adrenal glands without significant abnormality. Pelvis: Postsurgical change and small bowel anastomoses noted in the pelvis. Ovoid focus of fluid attenuation in the left pelvis measuring approximately 4 cm in maximal diameter, nonspecific. No other, apparent bowel obstruction. Appendix not confidently identified and probably surgically absent. No significant, free fluid or apparent adenopathy. Abdominal aorta is nonaneurysmal. Tubal ligation clips again noted. Axial skeleton without acute abnormality. Rounded, sclerotic focus again noted in T9 vertebral body may represent bone island, not appreciably changed. Fat-containing, multifocal ventral hernia is again noted in the upper-mid abdominal wall. [facility] Sunil Thompson MD - 07/08/2025 Patient Name: [facility]EL WALL : 1985 [id number] Exam Date/Time: 07/08/2025 16:52 Procedure: CT ABDOMEN PELVIS W CONTRAST Ordering Provider: OROZCO BRIGID Reason For Exam: Bowel obstruction suspected CT ABDOMEN AND PELVIS WITH CONTRAST CLINICAL INDICATION: Bowel obstruction suspected TECHNIQUE: CT scan of the abdomen and pelvis, with IV contrast. Multiplanar reformations. Dose reduction was employed with automated exposure control. COMPARISON: May,. FINDINGS: Abdomen: Visualized lung bases grossly unremarkable. Gallbladder surgically absent. Liver without significant abnormality. Spleen without significant abnormality. Pancreas without significant abnormality. Kidneys without significant abnormality. Punctate calcification again noted in the right kidney without significant hydronephrosis. Probable small, bilateral renal cyst(s) also similar. Adrenal glands without significant abnormality. Pelvis: Postsurgical change and small bowel anastomoses noted in the pelvis. Ovoid focus of fluid attenuation in the left pelvis measuring approximately 4 cm in maximal diameter, nonspecific. No other, apparent bowel obstruction. Appendix not confidently identified and probably surgically absent. No significant, free fluid or apparent adenopathy. Abdominal aorta is nonaneurysmal. Tubal ligation clips again noted. Axial skeleton without acute abnormality. Rounded, sclerotic focus again noted in T9 vertebral body may represent bone island, not appreciably changed. Fat-containing, multifocal ventral hernia is again noted in the upper-mid abdominal wall. IMPRESSION: 1. Postsurgical change and focal fluid within the left pelvis may represent fluid within anastomosis or distended bowel loop versus focal fluid within mesenteric leaf, but is nonspecific. Clinical correlation and follow-up as indicated. 2. No other acute findings or significant interval change. Please see above for further details. Report Dictated on Electronically Signed By: Sunil Thompson MD Electronically Signed Date/Time: 07/08/2025 5:40 PM EDT [facility] Radiology Study observation (narrative) [facility] CT Abdomen and Pelvis W cont rast IVOrdered By: Sunil Thompson on 07-08-2025 [facility] [employer] Work Phone: Comprehensive metabolic 1998 panelon 07-08-2025 Albumin [Mass/Vol] 3.9 g/dL 3.5 - 5.0 g/dL [facility] ALP [Catalytic activity/Vol] 37 U/L Low 40 - 150 U/L [facility] ALT [Catalytic activity/Vol] 13 U/L NINF - 30 U/L [facility] Anion gap [Moles/Vol] 10 mmol/L 3 - 13 mmol/L [facility] AST [Catalytic activity/Vol] 14 U/L NINF - 34 U/L [facility] Bilirubin [Mass/Vol] 0.3 mg/dL NINF - 1.2 mg/dL [facility] Calcium [Mass/Vol] 8.6 mg/dL 8.4 - 10. 2 mg/dL [facility] Chloride [Moles/Vol] 107 mmol/L 98 - 10 7 mmol/L [facility] CO2 [Moles/Vol] 22 mmol/L 22 - 29 mmol/L [facility] Creatinine [Mass/Vol] 0.65 mg/dL 0.57 - 1.11 mg/dL [facility] GFR/1.73 sq M.predicted (S/P/Bld) [Vol rate/Area] - PINF [facility] Comment on above: Calculation based on the Chronic Kidney Disease Epidemiology Collaboration (CKD-EPI) equation refit without adjustment for race Glucose [Mass/Vol] 127 mg/dL High 74 - 100 mg/dL [facility] Interpretation and review of laboratory results Abnormal [facility] Potassium [Moles/Vol] 3.5 mmol/L 3.5 - 5.1 mmol/L [facility] Comment on above: Plasma potassium kelsy ues may be up to 0.5 mmol/L lower than serum values. Protein [Mass/Vol] 6.8 g/dL 6.4 - 8.3 g/dL [facility] Sodium [Moles/Vol] 139 mmol/L 136 - 145 mmol/L [facility] Urea nitrogen [Mass/Vol] 10 mg/dL 8 - 21 mg/dL [facility] ED Nursing Noteon 07-08-2025 ED Nursing Note Pt arrives to [facility] ED via EMS at this time Normal [facility] ED Nursing Note Still needs wrist band Normal [facility] ED Nursing Note Went to medicate pt but she had been taken to radiology. Normal [facility] ED Nursing Note This RN was informed by Saud, hardware trainer that the pt was vomiting. He stated he informed Dr. Orozco. Normal [facility] ED Provider Noteon 5 ED Provider Note Normal [facility] HCG QUANTITATIVE BLOODon HCG QUANTITATIVE <2.5 Normal Females <5 [facility] Comment on above: Result Comment: VERA Dickey COMMENTS:Values in should double every 2 to 3 days for the first 6 weeks. Elevated concentrations of human chorionic gonadotropin (hCG) measured in the first trimester of are observed in normal , but may serve as an indication of chorionic carcinoma, hydatiform mole, or multiple . Decreasing hCG concentrations indicate threatened or missed , recent termination of , ectopic , gestosis or intrauterine . Yanelis- and postmenopausal females may have detectable hCG concentrations (< or = to 14 mIU/mL) due to pituitary production of hCG. Serum follicle-stimulating hormone measurement may aid in ruling-out in this population. Cutoffs of greater than 20 to 45 mIU/mL have been suggested and are method dependent. False-elevations (called phantom human chorionic gonadotropin: hCG) may occur with patients who have human antianimal or heterophilic antibodies. Some specimens may not dilute linearly due to abnormal forms of hCG. Elevated hCG concentrations not associated with are found in patients with other diseases such as tumors of the germ cells, ovaries, bladder, pancreas, stomach, lungs, and liver. This test is not intended to detect or monitor tumors or gestational trophoblastic disease. Performed By: #### L AB17, LAB99, [id number] ####Online Banking Specialist: TRACY PERDOMO ([phone])[facility])[address] [place] [address] LACTIC ACID WITH REFLEXon Lactate [Moles/Vol] 1.9 mmol/L Normal 0.5-2.2 [facility] Comment on above: Performed By: #### L [id number] ####Online Banking Specialist: SOL ZENG ([phone])[facility] ([facility])[address] [place] [address] [facility] LIPASEon 07-08-2025 Lipase [Catalytic activity/Vol] 19 U/L Normal <55 [facility] Comment on above: Performed By: #### L AB17, LAB99, [id number] ####Online Banking Specialist: TRACY PERDOMO ([phone])[facility] ([facility])[address] [place], [place] [id number] [place] [address] Laboratory - Chemistry and C hemistry - challengeon 07-08-2025 Lactate [Moles/Vol] 1.9 mmol/L 0.5 - 2. 2 mmol/L [facility] HCG.beta subunit Qn Females <5 mIU/mL [facility] Lipase [Catalytic activity/Vol] 19 U/L NINF - 55 U/L [facility] Lipase [Catalytic activity/V ol]on 07-08-2025 Interpretation and review of laboratory results Normal [facility] No Panel Informationon 07-08 Interpretation and review of laboratory results Normal [facility] Values in should double every 2 to 3 days for the first 6 weeks. Elevated concentrations of human chorionic gonadotropin (hCG) measured in the first trimester of are observed in normal , but may serve as an indication of chorionic carcinoma, hydatiform mole, or multiple . Decreasing hCG concentrations indicate threatened or missed , recent termination of , ectopic , gestosis or intrauterine . Yanelis- and postmenopausal females may have detectable hCG concentrations (< or = to 14 mIU/mL) due to pituitary production of hCG. Serum follicle-stimulating hormone measurement may aid in ruling-out in this population. Cutoffs of greater than 20 to 45 mIU/mL have been suggested and are method dependent. False-elevations (called phantom human chorionic gonadotropin: hCG) may occur with patients who have human antianimal or heterophilic antibodies. Some specimens may not dilute linearly due to abnormal forms of hCG. Elevated hCG concentrations not associated with are found in patients with other diseases such as tumors of the germ cells, ovaries, bladder, pancreas, stomach, lungs, and liver. This test is not intended to detect or monitor tumors or gestational trophoblastic disease. [facility] Urinalysis complete panel (U )Ordered By: Za Ordoñez on 07-08-2025 Amorphous Crystals, Urine Moderate Abnormal Negative /HPF [facility] Bacteria LM.HPF (Urine sed) [#/Area] Moderate Abnormal Negative /HPF [facility] Bilirubin Ql (U) Negative Negative mg/dL [facility] Clarity (U) Turbid Abnormal Clear [facility] Color (U) Yellow Lt. Yellow [facility] Epithelial cells.squamous LM.HPF (Urine sed) [#/Area] 26-50 Abnormal [facility] Glucose Ql (U) Normal Normal (<70) mg/dL [facility] Hemoglobin Ql (U) Negative Negative mg/dL [facility] Interpretation and review of laboratory results Abnormal [facility] Ketones (U) [Mass/Vol] Trace Abnormal Negative mg/dL [facility] Leukocyte esterase Test strip Ql (U) Negative Negative [place]/uL [facility] Mucus LM.HPF (Urine sed) [#/Area] Moderate Abnormal Negative /LPF [facility] Nitrite Ql (U) Negative Negative [facility] pH (U) 6.0 [pH] 5.0 - 8.0 pH [facility] Protein (U) [Mass/Vol] 20 mg/dL Abnormal Negative [facility] RBC LM.HPF (Urine sed) [#/Area] 3-5 Abnormal [facility] Specific gravity (U) [Rel density] 1.032 High 1.005 - 1.030 [facility] Urobilinogen (U) [Mass/Vol] 2 mg/dL Abnormal Normal (0-1) [facility] Volume, Urine 12 mL [facility] WBC LM.HPF (Urine sed) [#/Area] 3-5 [facility] A specimen with <=10 WBC is not consistent with inflammation. This specimen will not reflex to a urine culture. [facility] 36on 07-01-2025 36 Pt called to ask if there is anything available before October for her surgery? She is C/O her stomach ripping open and her FMLA is about to run out and she really needs to get this done before the end of the year. Is there anything open before then? Normal [facility]28[facility]20[facility] ([id number]) 1985 F Date Time Provider Department 06/28/25 HEATH FLORES During your visit today, we recorded the following information about you: Anoop Damaribrown Montes LPN 06/28/2025 3:41 PM Signed VM received asking if she should R/S her 07/10 appt due to just stopping THC when told to, but will not be out of system completely if tested on 07/10. Spoke with pt and informed to keep appt, discucss with . Allergies As of Date: 06/28/2025 Noted Allergy Reaction TORADOL (KETOROLAC) 07/24/2013 4 - Hives 12 - Shortness of Breath ZOFRAN (ONDANSETRON HCL (PF)) 07/24/2013 4 - Hives 12 - Shortness of Breath SEASONAL ALLERGIES 05/04/2024 9 - Itching 14 - Other: See Comments Comments: Stuffy nose Date Reviewed: 06/12/2025 Reviewed by: Nerissa León MA - Fully Assessed Reason for Visit: THC use [Other] Prescriptions as of 06/28/2025 - oxyCODONE IR (ROXICODONE) 5 mg immediate release tablet Take 1 tablet by mouth every 6 hours as needed for pain for up to 7 days. - Phentermine HCl 37.5 mg tablet Take 1 tablet by mouth once daily for 30 days. - FLUoxetine (PROZAC) 10 mg capsule Take 1 capsule by mouth once daily. - FLUoxetine (PROZAC) 20 mg capsule Take 1 capsule by mouth once daily. Patient should start on July 22, 2025. - cyclobenzaprine (FLEXERIL) 10 mg tablet Take 1 tablet by mouth three times a day as needed for pain or muscle spasm. - promethazine (PHENERGAN) 12.5 mg tablet Take 1 tablet by mouth every 8 hours as needed. - lidocaine (LIDODERM) 5 % Apply 1 Patch as directed every 24 hours. REMOVE AFTER 12 HOURS. - naloxone 4 mg/actuation nasal spray (NARCAN) Use 1 spray in one nostril as needed for overdose. 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 Surgery is being planned for October 2025. LVM for patient. Normal [facility] Progress Noteon 06-14-2025 Progress Note Normal [facility] CNOVon 06-12-2025 CNOV Office Visit (PAMMJK ) MEL WALL ([id number]) 1985 F Date Time Provider Department 06/12/25 8:00 AM HEATH FLORES During your visit today, we recorded the following information about you: Pulse Respiration Blood pressure Weight 78/minute 17/minute 122/62 104.3 kg Height 1.651 m Nerissa León MA 06/12/2025 8:38 AM Signed Room 2 New Consult: Abdominal Pain Heath Flores MD 06/12/2025 8:38 AM Signed PATIENT: Mel Wall : 1985 DATE OF SERVICE: 06/12/2025 REFERRING PRACTITIONER: No ref. provider found PRIMARY CARE PROVIDER: Nanci Diaz APRN.WIRE INSERTER CHIEF COMPLAINT: Patient presents with: Abdominal Pain HISTORY OF PRESENT ILLNESS: Mel Wall is a 39 year old year old female who presents to the clinic today with chief complaint(s) as above. Onset/Duration: Approximately 10 years ago Injury: Patient denies injury that started this. Since 2014, she has had approximately 10 abdominal surgeries including a Janel-en-Y, ventral hernia repair, multiple hernia surgeries, cholecystectomy, appendectomy, x 3, lysis of adhesions. She is currently discussing with surgeon to have abdominal surgery in August Location/radiation/referral: Pain is in the abdomen worse in the 2 upper quadrants in the right lower quadrant but still some pain in the left lower quadrant. She does not have back pain or pain radiating into the groins or legs Description: Sharp, shooting, ripping Pain Level: Now: 8 /10 Best: 7 /10 Worst: 9 /10 Numbness/Tingling (location): None Weakness (location): None Better with: Heat, abdominal binder, pain medication Worse with: Movement, coughing, lifting anything Fever/Chills: [] Yes [x] No Recent significant weight change: [] Yes [x] No Bladder/Bowel incontinence: [] Yes [x] No Is this visit directly related to a work or auto injury? [] Yes [x] No If so, pre-Injury Symptoms: n/a Prior Related Consults: [x] Yes [] No 1. Surgeon is Dr. 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 HEENT: negative. EYES: negative RESPIRATORY: negative. CARDIOVASCULAR: negative. GASTROINTESTINAL: negative. GENITOURINARY: negative. INTEGUMENT/BREAST: negative. HEMATOLOGIC/LYMPHATIC: negative. NEURO/MUSCULOSKELETAL: Negative except above BEHAVIORAL/PSYCH: negative. ENDOCRINE: negative. ALLERGIC/IMMUNOLOGIC: Negative. 14 point ROS; pertinent positives listed above, the rest are reviewed and confirmed to be negative. === HISTORY: ALLERGIES Allergen Reactions Toradol [Ketorolac] Hives, Shortness of Breath Zofran [Ondansetron* Hives, Shortness of Breath Seasonal Allergies Itching, Other: See Comments Stuffy nose PAST MEDICAL HISTORY Diagnosis Date Abdominal wall mass of left lower quadrant 07/24/2013 Scar tissue with abscess. Resolved Anxiety Bipolar 1 disorder (HCC) Chronic pain syndrome 08/06/2019 Seeing [facility]: Dr. Moore Depression Headache(784.0) 10/18/2013 Obesity, Class III, BMI 40-49.9 (morbid obesity) (HCC) 01/24/2018 Panic disorder 11/05/[address] Dukes Social phobia 11/05/2014 Ventral hernia 12/21/2019 PAST SURGICAL HISTORY Procedure Laterality Date APPENDECTOMY HX 2007 DELIVERY ONLY COLONOSCOPY 2007 EXC TUMOR SOFT TISSUE ABDOMINAL WALL SUBQ 3+CM 08/02/13 LLQ prior incision, stitch granuloma/chronic abscess INCISION AND DRAINAGE COMPLEX PO WOUND INFECTION 08/09/13 LAPS SURG CHOLECYSTECTOMY W/CHOLANGIOGRAPHY 03-08-07 PAST SURGICAL HISTORY OF hernia repair x6 PAST SURGICAL HISTORY OF 06/10/2019 Open lysis of adhesions JANEL-EN-Y W/GASTROENTEROS 10/23/2008 Division of the duodenum with Janel-en-Y duodenojejunostomy - op note describes a duodenal switch procedure TUBAL LIGATION, FAMILY HISTORY Problem Relation Age of Onset Panic Disorder Mother Anxiety disorder Mother Bipolar disorder Mother Depression Mother Cervical Cancer Mother Cancer Mother ovarian cancer Coronary Artery Disease Father 53 Diabetes Father Hypertension Father Cancer Sister ovarian cancer Coronary Artery Disease Maternal Uncle 50's Cancer Maternal (more content not included)... Normal [facility] .Auto Diffon 06-10-2025 Basophil, Absolute 0.0 10 3/mcL Normal 0.0-0.3 [facility] Comment on above: Performed By: #### M DW, CBC, ADIFF, LIP, GFR, CMP, ANEU #### [address] [address] Basophils/100 WBC (Bld) 0.3 % Normal 0.0-2.5 [facility] Comment on above: Performed By: #### M DW, CBC, ADIFF, LIP, GFR, CMP, ANEU #### [address] [address] Eosinophil, Absolute 0.2 10 3/mcL Normal 0.0-0.7 [facility] Comment on above: Performed By: #### M DW, CBC, ADIFF, LIP, GFR, CMP, ANEU #### [address] [address] Eosinophils/100 WBC (Bld) 1.8 % Normal 0.0-6.0 [facility] Comment on above: Performed By: #### M DW, CBC, ADIFF, LIP, GFR, CMP, ANEU #### [address] [address] Lymphocyte, Absolute 2.6 10 3/mcL Normal 0.9-4.3 [facility] Comment on above: Performed By: #### M DW, CBC, ADIFF, LIP, GFR, CMP, ANEU #### [address] [address] Lymphocytes/100 WBC (Bld) 28.3 % Normal 20.0-40.0 [facility] Comment on above: Performed By: #### M DW, CBC, ADIFF, LIP, GFR, CMP, ANEU #### [address] [address] Monocyte, Absolute 0.5 10 3/mcL Normal 0.1-1.4 [facility] Comment on above: Performed By: #### M DW, CBC, ADIFF, LIP, GFR, CMP, ANEU #### [address] [address] Monocytes/100 WBC (Bld) 5.8 % Normal 2.0-13.0 [facility] Comment on above: Performed By: #### M DW, CBC, ADIFF, LIP, GFR, CMP, ANEU #### [address] [address] Neutrophils/100 WBC (Bld) 63.8 % Normal 50.0-75.0 [facility] Comment on above: Performed By: #### M DW, CBC, ADIFF, LIP, GFR, CMP, ANEU #### [address] [address] .GFRon 06-10-2025 Estimated Glomerular Filtration Rate 114 ml/min/1.73sqm Normal [facility] Comment on above: Result Comment: Stages of Chronic Kidney Disease (CKD) Stage Description eGFR(ml/min/1.73 sq.m.) CKD 1 Normal kidney function or >=90 normal kindney function with possible kidney damage (ex. Proteinuria) CKD 2 Kidney damage with mild loss 60-89 of kidney function CKD 3a Mild to moderate loss of kidney 45-59 function CKD 3b Moderate to severe loss of 30-44 of kindey function CKD 4 Severe loss of kidney function 15-29 CKD 5 Kidney failure <15 Note: (go live 2024) the eGFR calculation was updated to the 2020 CKD-EPI creatinine equation without a race factor to calculate the eGFR results. Performed By: #### M DW, CBC, ADIFF, LIP, GFR, CMP, ANEU #### [address] [address] .MDWon 06-10-2025 Monocyte Distribution Width 16.91 Normal 0.00-20.00 [facility] Comment on above: Result Comment: For ED adult patients suspected of sepsis, MDW<=20.0 does not rule out sepsis or risk of sepsis Performed By: #### M DW, CBC, ADIFF, LIP, GFR, CMP, ANEU #### [place] [address] .NEUABSon 06-10-2025 Neutrophil, Absolute 5.7 10 3/mcL Normal 2.3-8.1 [facility] Comment on above: Performed By: #### M DW, CBC, ADIFF, LIP, GFR, CMP, ANEU #### [place] [address] CBCon 06-10-2025 Erythrocyte distribution width (RBC) [Ratio] 13.0 % Normal 11.5-15.5 [facility] Comment on above: Performed By: #### M DW, CBC, ADIFF, LIP, GFR, CMP, ANEU #### [place] [address] Hematocrit (Bld) [Volume fraction] 40.5 % Normal 34.0-46.0 [facility] Comment on above: Performed By: #### M DW, CBC, ADIFF, LIP, GFR, CMP, ANEU #### [place] [address] Hgb 13.7 G/dL Normal 12.0-16.0 [facility] Comment on above: Performed By: #### M DW, CBC, ADIFF, LIP, GFR, CMP, ANEU #### [place] [address] MCH (RBC) [Entitic mass] 30.8 pg Normal 27.0-33.0 [facility] Comment on above: Performed By: #### M DW, CBC, ADIFF, LIP, GFR, CMP, ANEU #### [place] [address] MCHC 33.9 G/dL Normal 32.0-36.0 [facility] Comment on above: Performed By: #### M DW, CBC, ADIFF, LIP, GFR, CMP, ANEU #### [place] [address] MCV (RBC) [Entitic vol] 90.7 fL Normal 80.0-99.0 [facility] Comment on above: Performed By: #### M DW, CBC, ADIFF, LIP, GFR, CMP, ANEU #### [place] [address] Platelet 299 10 3/mcL Normal 150-450 [facility] Comment on above: Performed By: #### M DW, CBC, ADIFF, LIP, GFR, CMP, ANEU #### [place] [address] Platelet mean volume (Bld) [Entitic vol] 7.3 fL Normal 6.6-10.5 [facility] Comment on above: Performed By: #### M DW, CBC, ADIFF, LIP, GFR, CMP, ANEU #### [place] [address] RBC 4.46 10 6/mcL Normal 4.10-5.30 [facility] Comment on above: Performed By: #### M DW, CBC, ADIFF, LIP, GFR, CMP, ANEU #### [place] [address] WBC 9.0 10 3/mcL Normal 4.5-10.8 [facility] Comment on above: Performed By: #### M DW, CBC, ADIFF, LIP, GFR, CMP, ANEU #### [place] [address] CMPon 06-10-2025 Albumin Level 4.1 G/dL Normal 3.2-4.8 [facility] Comment on above: Performed By: #### M DW, CBC, ADIFF, LIP, GFR, CMP, ANEU #### [place] [address] Albumin/Globulin [Mass ratio] 1.5 {ratio} Normal 0.9-1.6 [facility] Comment on above: Performed By: #### M DW, CBC, ADIFF, LIP, GFR, CMP, ANEU #### [place] [address] ALP [Catalytic activity/Vol] 44 U/L Normal 38-126 [facility] Comment on above: Performed By: #### M DW, CBC, ADIFF, LIP, GFR, CMP, ANEU #### [address] [address] ALT/SGPT <7 Low 10-49 [facility] Comment on above: Performed By: #### M DW, CBC, ADIFF, LIP, GFR, CMP, ANEU #### [address] [address] AST [Catalytic activity/Vol] 9 U/L Normal 8-34 [facility] Comment on above: Performed By: #### M DW, CBC, ADIFF, LIP, GFR, CMP, ANEU #### [address] [address] Bili Total 0.40 mg/dL Normal 0.20-1.20 [facility] Comment on above: Result Comment: Use of this assay is not recommended for patients undergoing treatment with eltrombopag due to the potential for falsely elevated results. Performed By: #### M DW, CBC, ADIFF, LIP, GFR, CMP, ANEU #### [place] [id number] BUN/Creatinine Ratio 16.2 ratio Normal 10.0-22.0 [facility] Comment on above: Performed By: #### M DW, CBC, ADIFF, LIP, GFR, CMP, ANEU #### [place] [id number] Calcium [Mass/Vol] 9.8 mg/dL Normal 8.7-10.4 [facility] Comment on above: Performed By: #### M DW, CBC, ADIFF, LIP, GFR, CMP, ANEU #### [address] [address] Chloride [Moles/Vol] 107 mmol/L Normal 98-110 [facility] Comment on above: Performed By: #### M DW, CBC, ADIFF, LIP, GFR, CMP, ANEU #### [address] [address] CO2 [Moles/Vol] 24 mmol/L Normal 22-32 [facility] Comment on above: Performed By: #### M DW, CBC, ADIFF, LIP, GFR, CMP, ANEU #### [place] [address] Creatinine [Mass/Vol] 0.68 mg/dL Normal 0.50-1.20 [facility] Comment on above: Result Comment: Test ing performed on SnapOne analyzer using enzymatic creatinine methodology. Performed By: #### M DW, CBC, ADIFF, LIP, GFR, CMP, ANEU #### [place] [address] Electrolyte Balance 8.0 mEq/L Normal 4.0-15.0 [facility] Comment on above: Performed By: #### M DW, CBC, ADIFF, LIP, GFR, CMP, ANEU #### [place] [id number] Globulin 2.8 G/dL Normal 2.5-4.2 [facility] Comment on above: Performed By: #### M DW, CBC, ADIFF, LIP, GFR, CMP, ANEU #### [place] [address] Glucose [Mass/Vol] 94 mg/dL Normal 70-110 [facility] Comment on above: Performed By: #### M DW, CBC, ADIFF, LIP, GFR, CMP, ANEU #### [place] [id number] Potassium [Moles/Vol] 3.8 mmol/L Normal 3.5-5.0 [facility] Comment on above: Performed By: #### M DW, CBC, ADIFF, LIP, GFR, CMP, ANEU #### [place] [id number] Sodium [Moles/Vol] 139 mmol/L Normal 136-145 [facility] Comment on above: Performed By: #### M DW, CBC, ADIFF, LIP, GFR, CMP, ANEU #### [place] [address] Total Protein 6.9 G/dL Normal 5.7-8.2 [facility] Comment on above: Performed By: #### M DW, CBC, ADIFF, LIP, GFR, CMP, ANEU #### [address] [address] Urea nitrogen [Mass/Vol] 11.0 mg/dL Normal 8.0-22.0 [facility] Comment on above: Performed By: #### M DW, CBC, ADIFF, LIP, GFR, CMP, ANEU #### [address] [address] LABORATORYOrdered By: Tim Smith on 06-10-2025 Beta HCG ( test) Ql (U) Negative (06/10/25 3:16 AM) [facility] Work Phone: LABORATORYOrdered By: SYSTEM SYSTEM on 06-10-2025 Albumin BCP dye [Mass/Vol] 4.1 G/dL Normal 3.2 - 4.8 G/dL ADM SS Albumin/Globulin [Mass ratio] 1.5 {ratio} Normal 0.9 - 1.6 ratio AH ADM SS ALP [Catalytic activity/Vol] 44 U/L Normal 38 - 126 U/L ADM SS ALT No additional P-5'-P [Catalytic activity/Vol] U/L 1 Low 10 - 49 U/L AH ADM SS AST [Catalytic activity/Vol] 9 U/L Normal 8 - 34 U/L AH ADM SS Basophils (Bld) [#/Vol] 0.0 103/mcL Normal 0.0 - 0.3 10^3/mcL AH Workflow SS Basophils/100 WBC (Bld) 0.3 % Normal 0.0 - 2.5 % Workflow SS Bilirubin [Mass/Vol] 0.40 mg/dL Normal 0.20 - 1.20 mg/dL AH ADM SS Comment on above: Interpretive Data: U se of this assay is not recommended for patients undergoing treatment with eltrombopag due to the potential for falsely elevated results. Calcium [Mass/Vol] 9.8 mg/dL Normal 8.7 - 10. 4 mg/dL AH ADM SS Chloride [Moles/Vol] 107 mmol/L Normal 98 - 11 0 mEq/L AH ADM SS CO2 [Moles/Vol] 24 mmol/L Normal 22 - 32 mEq/L AH ADM SS Creatinine [Mass/Vol] 0.68 mg/dL Normal 0.50 - 1.20 mg/dL AH ADM SS Comment on above: Interpretive Data: T esting performed on SnapOne analyzer using enzymatic creatinine methodology. Electrolyte Balance 8.0 mEq/L Normal 4.0 - 15 .0 mEq/L ADM SS Eosinophils (Bld) [#/Vol] 0.2 103/mcL Normal 0.0 - 0.7 10^3/mcL Workflow SS Eosinophils/100 WBC (Bld) 1.8 % Normal 0.0 - 6.0 % Workflow SS Erythrocyte distribution width (RBC) [Ratio] 13.0 % Normal 11.5 - 15.5 % Workflow SS Estimated Glomerular Filtration Rate 114 ml/min/1.73sqm Invalid Interpretation Code ADM SS Comment on above: Interpretive Data: Stages of Chronic Kidney Disease (CKD) Stage Description eGFR(ml/min/1.73 sq.m.) CKD 1 Normal kidney function or >=90 normal kindney function with possible kidney damage (ex. Proteinuria) CKD 2 Kidney damage with mild loss 60-89 of kidney function CKD 3a Mild to moderate loss of kidney 45-59 function CKD 3b Moderate to severe loss of 30-44 of kindey function CKD 4 Severe loss of kidney function 15-29 CKD 5 Kidney failure <15 Note: (go live 2024) the eGFR calculation was updated to the 2020 CKD-EPI creatinine equation without a race factor to calculate the eGFR results. Globulin 2.8 G/dL Normal 2.5 - 4.2 G/dL ADM SS Glucose [Mass/Vol] 94 mg/dL Normal 70 - 110 mg/dL ADM SS Hematocrit (Bld) [Volume fraction] 40.5 % Normal 34.0 - 46.0 % Workflow SS Hemoglobin (Bld) [Mass/Vol] 13.7 G/dL Normal 12.0 - 16.0 G/dL Workflow SS Lipase [Catalytic activity/Vol] 35 U/L Normal 12 - 53 U/L ADM SS Lymphocytes (Bld) [#/Vol] 2.6 103/mcL Normal 0.9 - 4.3 10^3/mcL Workflow SS Lymphocytes/100 WBC (Bld) 28.3 % Normal 20.0 - 40.0 % Workflow SS MCH (RBC) [Entitic mass] 30.8 pg Normal 27.0 - 33.0 pg Workflow SS MCHC 33.9 G/dL Normal 32.0 - 36.0 G/dL AH Workflow SS MCV (RBC) [Entitic vol] 90.7 fL Normal 80.0 - 99.0 fL AH Workflow SS Monocyte distribution width Auto (Bld) [Entitic vol] 16.91 1 Normal 0.00 - 20.00 AH Workflow SS Comment on above: Result Comment: For ED adult patients suspected of sepsis, MDW<=20.0 does not rule out sepsis or risk of sepsis Monocytes (Bld) [#/Vol] 0.5 103/mcL Normal 0.1 - 1.4 10^3/mcL AH Workflow SS Monocytes/100 WBC (Bld) 5.8 % Normal 2.0 - 13.0 % AH Workflow SS Neutrophils (Bld) [#/Vol] 5.7 103/mcL Normal 2.3 - 8.1 10^3/mcL AH Workflow SS Neutrophils/100 WBC (Bld) 63.8 % Normal 50.0 - 75.0 % AH Workflow SS Platelet mean volume (Bld) [Entitic vol] 7.3 fL Normal 6.6 - 10.5 fL AH Workflow SS Platelets (Bld) [#/Vol] 299 103/mcL Normal 150 - 450 10^3/mcL AH Workflow SS Potassium [Moles/Vol] 3.8 mmol/L Normal 3.5 - 5.0 mEq/L AH ADM SS Protein [Mass/Vol] 6.9 G/dL Normal 5.7 - 8.2 G/dL AH ADM SS RBC (Bld) [#/Vol] 4.46 106/mcL Normal 4.10 - 5.30 10^6/mcL AH Workflow SS Sodium [Moles/Vol] 139 mmol/L Normal 136 - 145 mEq/L AH ADM SS Urea nitrogen [Mass/Vol] 11.0 mg/dL Normal 8.0 - 22.0 mg/dL AH ADM SS Urea nitrogen/Creatinine [Mass ratio] 16.2 ratio Normal 10.0 - 22.0 ratio AH ADM SS WBC (Bld) [#/Vol] 9.0 103/mcL Normal 4.5 - 10.8 10^3/mcL AH Workflow SS LABORATORYOrdered By: Rio caballero on 06-10-2025 Appearance (U) Clear (06/10/25 3:10 AM) Normal Clear AH Auto Urine SS Bilirubin Ql (U) Negative (06/10/25 3:10 AM) Normal Neg-Trace AH Auto Urine SS Color (U) Yellow (06/10/25 3:10 AM) Normal Auto Urine SS Glucose Test strip (U) [Mass/Vol] Negative Normal Negative Auto Urine SS Hemoglobin Auto test strip (U) [Mass/Vol] Negative (06/10/25 3:10 AM) Normal Neg-Trace Auto Urine SS Ketones Ql (U) Trace mg/dL Normal Neg-Trace Auto Urine SS UA Leuk Est Negative (06/10/25 3:10 AM) Normal Negative Auto Urine SS UA Nitrite Negative (06/10/25 3:10 AM) Normal Negative Auto Urine SS UA pH 5.5 (06/10/25 3:10 AM) Normal 5.0 - 8.0 Auto Urine SS UA Protein Negative Normal Negative Auto Urine SS UA Spec Grav 1.025 (06/10/25 3:10 AM) Normal 1.006-1.02 9 Auto Urine SS UA Specimen Type Clean Catch (06/10/25 3:10 AM) Normal Auto Urine SS UA Urobilinogen 0.2 E.U./dL Normal 0.2-1.0 Auto Urine SS LIPon 06-10-2025 Lipase Level 35 U/L Normal 12-53 [facility] Comment on above: Performed By: #### M DW, CBC, ADIFF, LIP, GFR, CMP, ANEU #### [place] [address] UAon 06-10-2025 Color (U) Yellow Normal [facility] Comment on above: Performed By: #### U A #### [place] [id number] Glucose (U) [Mass/Vol] Negative Normal Negative [facility] Comment on above: Performed By: #### U A #### [place] [id number] Ketones Ql (U) Trace Normal Neg-Trace [facility] Comment on above: Performed By: #### U A #### [place] [id number] UA Appear Clear Normal Clear [facility] Comment on above: Performed By: #### U A #### [place] [address] UA Blood Negative Normal Neg-Trace [facility] Comment on above: Performed By: #### U A #### [place] [address] UA Leuk Est Negative Normal Negative [facility] Comment on above: Performed By: #### U A #### [place] [address] UA Nitrite Negative Normal Negative [facility] Comment on above: Performed By: #### U A #### [place] [address] UA pH 5.5 Normal 5.0 - 8.0 [facility] Comment on above: Performed By: #### U A #### [place] [address] UA Protein Negative Normal Negative [facility] Comment on above: Performed By: #### U A #### [place] [address] UA Spec Grav 1.025 Normal 1.006-1.[address] [place] [address] MAIN Comment on above: Performed By: #### U A #### [place] [address] UA Specimen Type Clean Catch Normal [facility] Comment on above: Performed By: #### U A #### [place] [address] UA Urobilinogen 0.2 E.U./dL Normal 0.2-1.0 [facility] Comment on above: Performed By: #### U A #### [place] [address] Urobilinogen (U) [Mass/Vol] Negative Normal Neg-Trace [facility] Comment on above: Performed By: #### U A #### [place] [address] 36on 05-24-2025 36 Ok for FMLA during h er hospitalization but ok to return to work on Tuesday from our standpoint. Thanks. [facility] 36 Pt sent in some FMLA paperwork to be filled out and signed by Dr Taylor. Are we granting her any time off work? She is requesting time off until 06/03/25 Normal [facility] BASIC METABOLIC PANELon 05-10 Anion gap [Moles/Vol] 7 mmol/L Normal 3-13 [facility] Comment on above: Performed By: #### L AB103, LAB15 ####Online Banking Specialist: SOL ZENG ([phone])[facility])[address] [place] [address] Calcium [Mass/Vol] 8.8 mg/dL Normal 8.4-10.2 [facility] Comment on above: Performed By: #### L AB103, LAB15 ####Online Banking Specialist: SOL ZENG ([phone])[facility])[address] [place] [address] Chloride [Moles/Vol] 106 mmol/L Normal 98-107 [facility] Comment on above: Performed By: #### L 103, LAB15 ####Online Banking Specialist: SOL ZENG ([phone])[facility] ([facility])[address] [place] [address] CO2 [Moles/Vol] 25 mmol/L Normal 22-29 [facility] Comment on above: Performed By: #### L AB103, LAB15 ####Online Banking Specialist: SOL ZEGN ([phone])[facility])[address] [place] [address] Creatinine [Mass/Vol] 0.62 mg/dL Normal 0.57-1.11 [facility] Comment on above: Performed By: #### L AB103, LAB15 ####Online Banking Specialist: SOL ZENG ([phone])[facility])[address] [place] [address] GLOMERULAR FILTRATION RATE ML/MIN/1.73 SQ M.PREDICTED >90.0 Normal >60.0 [facility] Comment on above: Result Comment: Calc ulation based on the Chronic Kidney Disease Epidemiology Collaboration (CKD-EPI) equation refit without adjustment for race Performed By: #### L AB103, LAB15 ####Online Banking Specialist: SOL [phone])[facility] ([facility])[address] [place] [address] [place] Glucose [Mass/Vol] 105 mg/dL High 74-100 [facility] Comment on above: Performed By: #### L AB103, LAB15 ####Online Banking Specialist: SOL ZENG ([phone])[facility] [place] [address] Potassium [Moles/Vol] 3.8 mmol/L Normal 3.5-5.1 [facility] Comment on above: Result Comment: [facility] potassium values may be up to 0.5 mmol/L lower than serum values. Performed By: #### L AB103, LAB15 ####Online Banking Specialist: SOL ZENG ([phone])[facility] [place] [address] Sodium [Moles/Vol] 138 mmol/L Normal 136-145 [facility] Comment on above: Performed By: #### L AB103, LAB15 ####Online Banking Specialist: SOL ZENG ([phone])[facility] ([facility])[address] [place] [address] Urea nitrogen [Mass/Vol] 11 mg/dL Normal 8-21 [facility] Comment on above: Performed By: #### L AB103, LAB15 ####Online Banking Specialist: SOL ZENG ([phone])[facility] ([facility])[address] [place] [address] Basic metabolic 1998 panelon 05-24-2025 Anion gap [Moles/Vol] 7 mmol/L 3 - 13 mmol/L [facility] Calcium [Mass/Vol] 8.8 mg/dL 8.4 - 10. 2 mg/dL [facility] Chloride [Moles/Vol] 106 mmol/L 98 - 10 7 mmol/L [facility] CO2 [Moles/Vol] 25 mmol/L 22 - 29 mmol/L [facility] Creatinine [Mass/Vol] 0.62 mg/dL 0.57 - 1.11 mg/dL [facility] GFR/1.73 sq M.predicted (S/P/Bld) [Vol rate/Area] - PINF [facility] Comment on above: Calculation based on the Chronic Kidney Disease Epidemiology Collaboration (CKD-EPI) equation refit without adjustment for race Glucose [Mass/Vol] 105 mg/dL High 74 - 100 mg/dL [facility] Interpretation and review of laboratory results Abnormal [facility] Potassium [Moles/Vol] 3.8 mmol/L 3.5 - 5.1 mmol/L [facility] Comment on above: Plasma potassium kelsy ues may be up to 0.5 mmol/L lower than serum values. Sodium [Moles/Vol] 138 mmol/L 136 - 145 mmol/L [facility] Urea nitrogen [Mass/Vol] 11 mg/dL 8 - 21 mg/dL [facility] Laboratory - Chemistry and C hemistry - challengeon 05-24-2025 Magnesium [Mass/Vol] 1.9 mg/dL 1.6 - 2 .6 mg/dL [facility] MAGNESIUMon 05-24-2025 Magnesium [Mass/Vol] 1.9 mg/dL Normal 1.6-2.6 [facility] Comment on above: Result Comment: VERA Dickey COMMENTS:Higher values can be expected in females during menses. Performed By: #### L AB103, LAB15 ####Online Banking Specialist: SOL ZENG ([phone])[address] Magnesium [Mass/Vol]on 05-24 Interpretation and review of laboratory results Normal [facility] Higher values can be expected in females during menses. [facility] No Panel Informationon 05-24 [facility] Nursing Noteon 05-24-2025 Nursing Note This virtual RN disc ussed discharge instructions. IV was removed during the call by her bedside nurse. Patient scripts were sent to meds to beds. Once delivered, patient wishes to walk out. She declined wheelchair for transport. Ride is at bedside Normal [facility] Nursing Note Patient given discha rge paperwork/instructions. IV removed. Meds to be delivered from [facility] pharmacy, Oxycodone script given to patient along with return to work note. All questions and concerns addressed. Normal [facility] BASIC METABOLIC PANELon 05-10 Anion gap [Moles/Vol] 9 mmol/L Normal -13 [facility] Comment on above: Performed By: #### L AB103, LAB15 ####Online Banking Specialist: SOL ZENG ([phone])[facility] [place] [address] Calcium [Mass/Vol] 8.7 mg/dL Normal 8.4-10.2 [facility] Comment on above: Performed By: #### L AB103, LAB15 ####Online Banking Specialist: SOL ZENG ([phone])[facility] [place] [address] Chloride [Moles/Vol] 106 mmol/L Normal 98-107 [facility] Comment on above: Performed By: #### L AB103, LAB15 ####Online Banking Specialist: SOL ZENG ([phone])[facility] [place] [address] CO2 [Moles/Vol] 22 mmol/L Normal 22-29 [facility] Comment on above: Performed By: #### L AB103, LAB15 ####Online Banking Specialist: SOL ZENG ([phone])[facility] [place] [address] Creatinine [Mass/Vol] 0.56 mg/dL Low 0.57-1.11 [facility] Comment on above: Performed By: #### L AB103, LAB15 ####Online Banking Specialist: SOL ZENG ([phone])[facility])[address] [place] [address] [place] GLOMERULAR FILTRATION RATE ML/MIN/1.73 SQ M.PREDICTED >90.0 Normal >60.0 [facility] Comment on above: Result Comment: Calc ulation based on the Chronic Kidney Disease Epidemiology Collaboration (CKD-EPI) equation refit without adjustment for race Performed By: #### L AB103, LAB15 ####Online Banking Specialist: SOL ZENG ([phone])[facility] [place] [address] [place] Glucose [Mass/Vol] 103 mg/dL High 74-100 [facility] Comment on above: Performed By: #### L AB103, LAB15 ####Online Banking Specialist: SOL ZENG ([phone])[facility] [place] [address] Potassium [Moles/Vol] 4.0 mmol/L Normal 3.5-5.1 [facility] Comment on above: Result Comment: [facility] potassium values may be up to 0.5 mmol/L lower than serum values. Performed By: #### L AB103, LAB15 ####Online Banking Specialist: SOL ZENG ([phone])[facility] [place] [address] Sodium [Moles/Vol] 137 mmol/L Normal 136-145 [facility] Comment on above: Performed By: #### L AB103, LAB15 ####Online Banking Specialist: SOL ZENG ([phone])[facility] ([facility])[address] [place] [address] Urea nitrogen [Mass/Vol] 11 mg/dL Normal 8-21 [facility] Comment on above: Performed By: #### L AB103, LAB15 ####Online Banking Specialist: SOL ZENG ([phone])[facility] ([facility])[address] [place] [address] Basic metabolic 1998 panelon 05-23-2025 Anion gap [Moles/Vol] 9 mmol/L 3 - 13 mmol/L [facility] Calcium [Mass/Vol] 8.7 mg/dL 8.4 - 10. 2 mg/dL [facility] Chloride [Moles/Vol] 106 mmol/L 98 - 10 7 mmol/L [facility] CO2 [Moles/Vol] 22 mmol/L 22 - 29 mmol/L [facility] Creatinine [Mass/Vol] 0.56 mg/dL Low 0.57 - 1.11 mg/dL [facility] GFR/1.73 sq M.predicted (S/P/Bld) [Vol rate/Area] - PINF [facility] Comment on above: Calculation based on the Chronic Kidney Disease Epidemiology Collaboration (CKD-EPI) equation refit without adjustment for race Glucose [Mass/Vol] 103 mg/dL High 74 - 100 mg/dL [facility] Interpretation and review of laboratory results Abnormal [facility] Potassium [Moles/Vol] 4 mmol/L 3.5 - 5.1 mmol/L [facility] Comment on above: Plasma potassium kelsy ues may be up to 0.5 mmol/L lower than serum values. Sodium [Moles/Vol] 137 mmol/L 136 - 145 mmol/L [facility] Urea nitrogen [Mass/Vol] 11 mg/dL 8 - 21 mg/dL [facility] Sixto [facility]-23-2025 [facility] MEL WALL ([id number]) 1985 F Date Time Provider Department 05/23/25 [facility] D[facility] During your visit today, we recorded the following information about you: Kendra Anderson LPN 05/23/2025 3:22 PM Signed Patient called and stated she is going to be discharged this evening or tomorrow from the hospital and the surgeon stated they do not provide pain medication once the patient leaves the hospital. Patient stated she was able to get a sooner appointment with pain management on 06/12 but she still would need some pain meds until then if possible. This nurse let patient know a message would be sent to provider and we will follow up. Please Advise. ЮЛИЯ Najera Kristina, APRN.[facility] 05/24/2025 1:54 PM Signed Responded to patient in OneName message in a separate encounter. Allergies As of Date: 05/23/2025 Noted Allergy Reaction TORADOL (KETOROLAC) 07/24/2013 4 - Hives 12 - Shortness of Breath ZOFRAN (ONDANSETRON HCL (PF)) 07/24/2013 4 - Hives 12 - Shortness of Breath SEASONAL ALLERGIES 05/04/2024 9 - Itching 14 - Other: See Comments Comments: Stuffy nose Date Reviewed: 08/27/2024 Reviewed by: Nanci Diaz APRN.[employer] - Fully Assessed Reason for Visit: Patient Update [1234] Prescriptions as of 05/24/2025 - promethazine (PHENERGAN) 12.5 mg tablet Take 1 tablet by mouth every 8 hours as needed. - lidocaine (LIDODERM) 5 % Apply 1 Patch as directed every 24 hours. REMOVE AFTER 12 HOURS. - FLUoxetine (PROZAC) 20 mg capsule Take 1 capsule by mouth once daily. - naloxone 4 mg/actuation nasal spray (NARCAN) Use 1 spray in one nostril as needed for overdose. 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] 07/10/2019 Chronic pain syndrome [G89.4] 08/06/2019 Ventral hernia [K43.9] 12/21/2019 Recurrent ventral hernia [K43.2] 01/24/2020 Mixed obsessional thoughts and acts [F42.2] 05/31/2022 Recurrent major depressive disorder, in partial*05/31/2022 Chronic post-traumatic stress disorder (PTSD) [*05/31/2022 Bowel obstruction (HCC) [K56.609] 03/09/2023 03/09/2023 Ventral hernia without obstruction or gangrene *03/10/2023 Encounter Status:Closed by KENDRA ANDERSON on 05/23/25 Normal [facility] Consulton 05-23-2025 Consult Normal [facility] Laboratory - Chemistry and C hemistry - challengeon 05-23-2025 Magnesium [Mass/Vol] 1.8 mg/dL 1.6 - 2 .6 mg/dL [facility] MAGNESIUMon 05-23-2025 Magnesium [Mass/Vol] 1.8 mg/dL Normal 1.6-2.6 [facility] Comment on above: Result Comment: VERA R COMMENTS:Higher values can be expected in females during menses. Performed By: #### L AB103, LAB15 ####Online Banking Specialist: SOL ZENG ([phone])[facility])[address] [place] [address] Magnesium [Mass/Vol]on 05-23 Interpretation and review of laboratory results Normal [facility] Higher values can be expected in females during menses. [facility] No Panel Informationon 05-23 [facility] Progress Noteon 05-23-2025 Progress Note Normal [facility] Progress Note Normal [facility] Progress Note Normal [facility] [id number] 05-22-2025 [id number] Normal [facility] BASIC METABOLIC PANELon 05-10 Anion gap [Moles/Vol] 9 mmol/L Normal -13 [facility] Comment on above: Performed By: #### L AB15, [id number] ####Online Banking Specialist: SOL ZENG ([phone])[facility] ([facility])[address] [place] [address] Calcium [Mass/Vol] 8.7 mg/dL Normal 8.4-10.2 [facility] Comment on above: Performed By: #### L AB15, [id number] ####Online Banking Specialist: SOL ZENG ([phone])[facility] ([facility])[address] [place] [address] [place] Chloride [Moles/Vol] 108 mmol/L High 98-107 [facility] Comment on above: Performed By: #### L AB15, [id number] ####Online Banking Specialist: SOL ZENG ([phone])[facility])[address] [place] [address] CO2 [Moles/Vol] 19 mmol/L Low 22-29 [facility] Comment on above: Performed By: #### L AB15, [id number] ####Online Banking Specialist: SOL ZENG ([phone])[facility])[address] [place] [address] Creatinine [Mass/Vol] 0.55 mg/dL Low 0.57-1.11 [facility] Comment on above: Performed By: #### L AB15, [id number] ####Online Banking Specialist: SOL ZENG ([phone])[facility])[address] [place] [address] GLOMERULAR FILTRATION RATE ML/MIN/1.73 SQ M.PREDICTED >90.0 Normal >60.0 [facility] Comment on above: Result Comment: Calc ulation based on the Chronic Kidney Disease Epidemiology Collaboration (CKD-EPI) equation refit without adjustment for race Performed By: #### L AB15, [id number] ####Online Banking Specialist: SOL ZENG ([phone])[facility])[address] [place] [address] Glucose [Mass/Vol] 93 mg/dL Normal 74-100 [facility] Comment on above: Performed By: #### L AB15, [id number] ####Online Banking Specialist: SOL ZENG ([phone])[facility])[address] [place] [address] Potassium [Moles/Vol] 4.2 mmol/L Normal 3.5-5.1 [facility] Comment on above: Result Comment: [facility] potassium values may be up to 0.5 mmol/L lower than serum values. Performed By: #### L AB15, [id number] ####Online Banking Specialist: SOL ZENG ([phone])[facility] [place] [address] [place] Sodium [Moles/Vol] 136 mmol/L Normal 136-145 [facility] Comment on above: Performed By: #### L AB15, [id number] ####Online Banking Specialist: SOL ZENG ([phone])[facility])[address] [place] [address] [place] Urea nitrogen [Mass/Vol] 7 mg/dL Low 8-21 [facility] Comment on above: Performed By: #### L AB15, [id number] ####Online Banking Specialist: SOL ZENG ([phone])[facility])[address] [place] [address] Basic metabolic 1998 panelon 05-22-2025 Anion gap [Moles/Vol] 9 mmol/L 3 - 13 mmol/L [facility] Calcium [Mass/Vol] 8.7 mg/dL 8.4 - 10. 2 mg/dL [facility] Chloride [Moles/Vol] 108 mmol/L High 98 - 10 7 mmol/L [facility] CO2 [Moles/Vol] 19 mmol/L Low 22 - 29 mmol/L [facility] Creatinine [Mass/Vol] 0.55 mg/dL Low 0.57 - 1.11 mg/dL [facility] GFR/1.73 sq M.predicted (S/P/Bld) [Vol rate/Area] - PINF [facility] Comment on above: Calculation based on the Chronic Kidney Disease Epidemiology Collaboration (CKD-EPI) equation refit without adjustment for race Glucose [Mass/Vol] 93 mg/dL 74 - 100 mg/dL [facility] Interpretation and review of laboratory results Abnormal [facility] Potassium [Moles/Vol] 4.2 mmol/L 3.5 - 5.1 mmol/L [facility] Comment on above: Plasma potassium kelsy ues may be up to 0.5 mmol/L lower than serum values. Sodium [Moles/Vol] 136 mmol/L 136 - 145 mmol/L [facility] Urea nitrogen [Mass/Vol] 7 mg/dL Low 8 - 21 mg/dL [facility] CBC (HEMOGRAM)on 05-22-2025 Erythrocyte distribution width (RBC) [Ratio] 12.2 % Normal 11.5-15.0 [facility] Comment on above: Performed By: #### L [id number] ####Online Banking Specialist: SOL ZENG ([phone])[facility] ([facility])[address] [place] [address] Hemoglobin (Bld) [Mass/Vol] 13.5 g/dL Normal 11.7-16.0 [facility] Comment on above: Performed By: #### L AB294 ####Online Banking Specialist: SOL ZENG ([phone])[facility])[address] [place] [address] MCH (RBC) [Entitic mass] 31.1 pg Normal 26.0-34.0 [facility] Comment on above: Performed By: #### L AB294 ####Online Banking Specialist: SOL ZENG ([phone])[facility])[address] [place] [address] MCV (RBC) [Entitic vol] 94.5 fL Normal 77.0-99.0 [facility] Comment on above: Performed By: #### L AB294 ####Online Banking Specialist: SOL ZENG ([phone])[facility])[address] [place] [address] Platelets (Bld) [#/Vol] 253 10*3/uL Normal 140-440 [facility] Comment on above: Performed By: #### L AB294 ####Online Banking Specialist: SOL ZENG ([phone])[facility])[address] [place] [address] RBC (Bld) [#/Vol] 4.34 10*6/uL Normal 3.80-5.20 [facility] Comment on above: Performed By: #### L AB294 ####Online Banking Specialist: SOL ZENG ([phone])[address] WBC (Bld) [#/Vol] 7.2 10*3/uL Normal 3.6-10.7 [facility] Comment on above: Performed By: #### L AB294 ####Online Banking Specialist: SOL ZENG ([phone])[facility])[address] [place] [address] Hematocrit (Bld) [Volume fraction] 41.0 % Normal 35.0-47.0 [facility] Comment on above: Performed By: #### L AB294 ####Online Banking Specialist: SOL ZENG ([phone])[facility])[address] [place] [address] MCHC 32.9 % Normal 30.5-36.0 [facility] Comment on above: Performed By: #### L AB294 ####Online Banking Specialist: SOL ZENG ([phone])[facility] ([facility])[address] [place] [address] Platelet mean volume (Bld) [Entitic vol] 9.0 fL Normal 9.0-12.7 [facility] Comment on above: Performed By: #### L AB294 ####Online Banking Specialist: SOL ZENG ([phone])[facility] ([facility])[address] [place] [address] CBC panel Auto (Bld)on 05-22 Hematocrit (Bld) [Volume fraction] 41 % 35.0 - 47.0 % [facility] Interpretation and review of laboratory results Normal [facility] MCHC (RBC) [Mass/Vol] 32.9 % 30.5 - 36.0 % [facility] Platelet mean volume (Bld) [Entitic vol] 9 fL 9.0 - 12.7 fL [facility] Consulton 05-22-2025 Consult Normal [facility] LACTIC ACID WITH REFLEXon Lactate [Moles/Vol] 0.8 mmol/L Normal 0.5-2.2 [facility] Comment on above: Performed By: #### L [id number] ####Online Banking Specialist: SOL ZENG ([phone])[facility] ([facility])[address] [place] [address] Laboratory - Chemistry and C hemistry - challengeon 05-22-2025 Magnesium [Mass/Vol] 2.2 mg/dL 1.6 - 2 .6 mg/dL [facility] Lactate [Moles/Vol] 0.8 mmol/L 0.5 - 2. 2 mmol/L [facility] MAGNESIUMon 05-22-2025 Magnesium [Mass/Vol] 2.2 mg/dL Normal 1.6-2.6 [facility] Comment on above: Result Comment: VERA R COMMENTS:Higher values can be expected in females during menses. Performed By: #### L AB15, [id number] ####Online Banking Specialist: SOL ZENG ([phone])[facility] ([facility])[address] [place] [address] [place] Magnesium [Mass/Vol]on 05-22 Interpretation and review of laboratory results Normal [facility] Higher values can be expected in females during menses. [facility] No Panel Informationon 05-22 Interpretation and review of laboratory results Normal [facility] Progress Noteon 05-22-2025 Progress Note Normal [facility] Progress Note Nutrition rescreen completed. Patient is NPO/Clear liquid >3 days. Refer to Dietitian. Normal [facility] Progress Note Normal [facility] [id number] 05-21-2025 [id number] Normal [facility] BASIC METABOLIC PANELon 05-10 Anion gap [Moles/Vol] 9 mmol/L Normal -13 [facility] Comment on above: Performed By: #### L AB15, LAB99, [id number], [id number], [id number] ####Online Banking Specialist: SOL ZENG ([phone])[facility] [place] [address] [place] Calcium [Mass/Vol] 8.3 mg/dL Low 8.4-10.2 [facility] Comment on above: Performed By: #### L AB15, LAB99, [id number], [id number], [id number] ####Online Banking Specialist: SOL ZENG ([phone])[facility] [place] [address] [place] Chloride [Moles/Vol] 107 mmol/L Normal 98-107 [facility] Comment on above: Performed By: #### L AB15, LAB99, [id number], [id number], [id number] ####Online Banking Specialist: SOL ZENG ([phone])[facility] ([facility])[address] [place] [address] [place] CO2 [Moles/Vol] 19 mmol/L Low 22-29 [facility] Comment on above: Performed By: #### L AB15, LAB99, [id number], [id number], [id number] ####Online Banking Specialist: SOL ZENG ([phone])[facility])[address] [place] [address] Creatinine [Mass/Vol] 0.59 mg/dL Normal 0.57-1.11 [facility] Comment on above: Performed By: #### L AB15, LAB99, [id number], [id number], [id number] ####Online Banking Specialist: SOL ZENG ([phone])[facility])[address] [place] [address] GLOMERULAR FILTRATION RATE ML/MIN/1.73 SQ M.PREDICTED >90.0 Normal >60.0 [facility] Comment on above: Result Comment: Calc ulation based on the Chronic Kidney Disease Epidemiology Collaboration (CKD-EPI) equation refit without adjustment for race Performed By: #### L AB15, LAB99, [id number], [id number], [id number] ####Online Banking Specialist: SOL ZENG ([phone])[facility])[address] [place] [address] Glucose [Mass/Vol] 142 mg/dL High 74-100 [facility] Comment on above: Performed By: #### L AB15, LAB99, [id number], [id number], [id number] ####Online Banking Specialist: SOL ZENG ([phone])[facility])[address] [place] [address] Potassium [Moles/Vol] 3.4 mmol/L Low 3.5-5.1 [facility] Comment on above: Result Comment: [facility] potassium values may be up to 0.5 mmol/L lower than serum values. Performed By: #### L AB15, LAB99, [id number], [id number], [id number] ####Online Banking Specialist: SOL ZENG ([phone])[facility])[address] [place] [address] Sodium [Moles/Vol] 135 mmol/L Low 136-145 [facility] Comment on above: Performed By: #### L AB15, LAB99, [id number], [id number], [id number] ####Online Banking Specialist: SOL ZENG ([phone])[facility] ([facility])[address] [place] [address] Urea nitrogen [Mass/Vol] 8 mg/dL Normal 8-21 [facility] Comment on above: Performed By: #### L AB15, LAB99, [id number], [id number], [id number] ####Online Banking Specialist: SOL ZENG ([phone])[facility] [place] [address] Basic metabolic 1998 panelon 05-21-2025 Anion gap [Moles/Vol] 9 mmol/L 3 - 13 mmol/L [facility] Calcium [Mass/Vol] 8.3 mg/dL Low 8.4 - 10. 2 mg/dL [facility] Chloride [Moles/Vol] 107 mmol/L 98 - 10 7 mmol/L [facility] CO2 [Moles/Vol] 19 mmol/L Low 22 - 29 mmol/L [facility] Creatinine [Mass/Vol] 0.59 mg/dL 0.57 - 1.11 mg/dL [facility] GFR/1.73 sq M.predicted (S/P/Bld) [Vol rate/Area] - PINF [facility] Comment on above: Calculation based on the Chronic Kidney Disease Epidemiology Collaboration (CKD-EPI) equation refit without adjustment for race Glucose [Mass/Vol] 142 mg/dL High 74 - 100 mg/dL [facility] Interpretation and review of laboratory results Abnormal [facility] Potassium [Moles/Vol] 3.4 mmol/L Low 3.5 - 5.1 mmol/L [facility] Comment on above: Plasma potassium kelsy ues may be up to 0.5 mmol/L lower than serum values. Sodium [Moles/Vol] 135 mmol/L Low 136 - 145 mmol/L [facility] Urea nitrogen [Mass/Vol] 8 mg/dL 8 - 21 mg/dL [facility] CBC W Auto Differential pane l (Bld)on 05-21-2025 Basophils (Bld) [#/Vol] 0 10*3/uL 0.0 - 0.2 10*3/uL [facility] Basophils/100 WBC (Bld) 0.4 % 0.0 - 2.0 % [facility] Eosinophils (Bld) [#/Vol] 0.1 10*3/uL 0.0 - 0.5 10*3/uL [facility] Eosinophils/100 WBC (Bld) 1.3 % 0.0 - 6.0 % [facility] Erythrocyte distribution width (RBC) [Ratio] 12.5 % 11.5 - 15.0 % [facility] Hematocrit (Bld) [Volume fraction] 35.5 % 35.0 - 47.0 % [facility] Hemoglobin (Bld) [Mass/Vol] 11.7 g/dL 11.7 - 16.0 g/dL [facility] Immature granulocytes (Bld) [#/Vol] 0 10*3/uL NINF - 0.1 10*3/uL [facility] Immature granulocytes/100 WBC (Bld) 0.4 % 0.0 - 2.0 % [facility] Interpretation and review of laboratory results Abnormal [facility] Lymphocytes (Bld) [#/Vol] 2 10*3/uL 1.0 - 4.3 10*3/uL [facility] Lymphocytes/100 WBC (Bld) 23.8 % 15.0 - 45.0 % [facility] MCH (RBC) [Entitic mass] 30.8 pg 26.0 - 34.0 pg [facility] MCHC (RBC) [Mass/Vol] 33 % 30.5 - 36.0 % [facility] MCV (RBC) [Entitic vol] 93.4 fL 77.0 - 99.0 fL [facility] Monocytes (Bld) [#/Vol] 0.4 10*3/uL 0.0 - 0.9 10*3/uL [facility] Monocytes/100 WBC (Bld) 4.7 % Low 5.0 - 13.0 % [facility] Neutrophils (Bld) [#/Vol] 6 10*3/uL 1.8 - 7.5 10*3/uL [facility] Neutrophils/100 WBC (Bld) 69.4 % 38.0 - 82.0 % [facility] Nucleated RBC/100 WBC (Bld) [Ratio] 0 % [facility] Platelet mean volume (Bld) [Entitic vol] 9.5 fL 9.0 - 12.7 fL [facility] Platelets (Bld) [#/Vol] 216 10*3/uL 140 - 440 10*3/uL [facility] RBC (Bld) [#/Vol] 3.8 10*6/uL 3.80 - 5.20 10*6/uL [facility] WBC (Bld) [#/Vol] 8.6 10*3/uL 3.6 - 10.7 10*3/uL [facility] CBC WITH AUTO DIFFERENTIALon 05-21-2025 Basophils (Bld) [#/Vol] 0.0 10*3/uL Normal 0.0-0.2 [facility] Comment on above: Performed By: #### L [id number] ####Online Banking Specialist: SOL ZENG ([phone])[facility])[address] [place] [address] Basophils/100 WBC (Bld) 0.4 % Normal 0.0-2.0 [facility] Comment on above: Performed By: #### L [id number] ####Online Banking Specialist: SOL ZENG ([phone])[facility])[address] [place] [address] Eosinophils (Bld) [#/Vol] 0.1 10*3/uL Normal 0.0-0.5 [facility] Comment on above: Performed By: #### L [id number] ####Online Banking Specialist: SOL ZENG ([phone])[facility])[address] [place] [address] Eosinophils/100 WBC (Bld) 1.3 % Normal 0.0-6.0 [facility] Comment on above: Performed By: #### L [id number] ####Online Banking Specialist: SOL ZENG ([phone])[facility])[address] [place] [address] Erythrocyte distribution width (RBC) [Ratio] 12.5 % Normal 11.5-15.0 [facility] Comment on above: Performed By: #### L [id number] ####Online Banking Specialist: SOL ZENG ([phone])[facility])[address] [place] [address] Hematocrit (Bld) [Volume fraction] 35.5 % Normal 35.0-47.0 [facility] Comment on above: Performed By: #### L [id number] ####Online Banking Specialist: SOL ZENG ([phone])[facility])[address] [place] [address] Hemoglobin (Bld) [Mass/Vol] 11.7 g/dL Normal 11.7-16.0 [facility] Comment on above: Performed By: #### L [id number] ####Online Banking Specialist: SOL ZENG ([phone])[facility])[address] [place] [address] IMMATURE GRANS % 0.4 % Normal 0.0-2.0 [facility] Comment on above: Performed By: #### L [id number] ####Online Banking Specialist: SOL ZENG ([phone])[address] IMMATURE GRANS ABSOLUTE 0.0 10*3/uL Normal <0.1 [facility] Comment on above: Performed By: #### L [id number] ####Online Banking Specialist: SOL ZENG ([phone])[facility])[address] [place] [address] Lymphocytes (Bld) [#/Vol] 2.0 10*3/uL Normal 1.0-4.3 [facility] Comment on above: Performed By: #### L [id number] ####Online Banking Specialist: SOL ZENG ([phone])[facility])[address] [place] [address] Lymphocytes/100 WBC (Bld) 23.8 % Normal 15.0-45.0 [facility] Comment on above: Performed By: #### L [id number] ####Online Banking Specialist: SOL ZENG ([phone])[facility])[address] [place] [address] MCH (RBC) [Entitic mass] 30.8 pg Normal 26.0-34.0 [facility] Comment on above: Performed By: #### L [id number] ####Online Banking Specialist: SOL ZENG ([phone])[facility] ([facility])[address] [place] [address] MCHC 33.0 % Normal 30.5-36.0 [facility] Comment on above: Performed By: #### L [id number] ####Online Banking Specialist: SOL ZENG ([phone])[facility] ([facility])[address] [place] [address] MCV (RBC) [Entitic vol] 93.4 fL Normal 77.0-99.0 [facility] Comment on above: Performed By: #### L [id number] ####Online Banking Specialist: SOL ZENG ([phone])[facility] ([facility])[address] [place] [address] Monocytes (Bld) [#/Vol] 0.4 10*3/uL Normal 0.0-0.9 [facility] Comment on above: Performed By: #### L [id number] ####Online Banking Specialist: SOL ZENG ([phone])[facility] ([facility])[address] [place] [address] Monocytes/100 WBC (Bld) 4.7 % Low 5.0-13.0 [facility] Comment on above: Performed By: #### L [id number] ####Online Banking Specialist: SOL ZENG ([phone])[facility] ([facility])[address] [place] [address] NEUTROPHILS ABSOLUTE 6.0 10*3/uL Normal 1.8-7.5 [facility] Comment on above: Performed By: #### L [id number] ####Online Banking Specialist: SOL ZENG ([phone])[facility] ([facility])[address] [place] [address] Neutrophils/100 WBC (Bld) 69.4 % Normal 38.0-82.0 [facility] Comment on above: Performed By: #### L [id number] ####Online Banking Specialist: SOL ZENG ([phone])[facility] ([facility])[address] [place] [address] NRBC 0.0 /100 WBCs Normal 0.0-2.0 [facility] Comment on above: Performed By: #### L [id number] ####Online Banking Specialist: SOL ZENG ([phone])[facility] ([facility])[address] [place] [address] Platelet mean volume (Bld) [Entitic vol] 9.5 fL Normal 9.0-12.7 [facility] Comment on above: Performed By: #### L [id number] ####Online Banking Specialist: SOL ZENG ([phone])[facility] ([facility])[address] [place] [address] Platelets (Bld) [#/Vol] 216 10*3/uL Normal 140-440 [facility] Comment on above: Performed By: #### L [id number] ####Online Banking Specialist: SOL ZENG ([phone])[facility] ([facility])[address] [place] [address] RBC (Bld) [#/Vol] 3.80 10*6/uL Normal 3.80-5.20 [facility] Comment on above: Performed By: #### Rachael [id number] ####Online Banking Specialist: SOL ZENG ([phone])[facility] ([facility])[address] [place] [address] WBC (Bld) [#/Vol] 8.6 10*3/uL Normal 3.6-10.7 [facility] Comment on above: Performed By: #### L [id number] ####Online Banking Specialist: SOL ZENG ([phone])[facility] ([facility])[address] [place] [address] Sixto 05-21-2025 MAHENDRAN Telephone ([facility]) MEL [id number]) 1985 F Date Time Provider Department 05/21/25 NANCI DIAZ [facility] During your visit today, we recorded the following information about you: Brennan Azul 05/21/2025 11:01 AM Signed Please review and complete. Forms will be placed in your inbox. Thank you Allergies As of Date: 05/21/2025 Noted Allergy Reaction TORADOL (KETOROLAC) 07/24/2013 4 - Hives 12 - Shortness of Breath ZOFRAN (ONDANSETRON HCL (PF)) 07/24/2013 4 - Hives 12 - Shortness of Breath SEASONAL ALLERGIES 05/04/2024 9 - Itching 14 - Other: See Comments Comments: Stuffy nose Date Reviewed: 08/27/2024 Reviewed by: Nanci Diaz APRN.[employer] - Fully Assessed Reason for Visit: Forms [913] Cmt: [facility]- disability form Prescriptions as of 05/21/2025 - promethazine (PHENERGAN) 12.5 mg tablet Take 1 tablet by mouth every 8 hours as needed. - lidocaine (LIDODERM) 5 % Apply 1 Patch as directed every 24 hours. REMOVE AFTER 12 HOURS. - FLUoxetine (PROZAC) 20 mg capsule Take 1 capsule by mouth once daily. - naloxone 4 mg/actuation nasal spray (NARCAN) Use 1 spray in one nostril as needed for overdose. 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] 07/10/2019 Chronic pain syndrome [G89.4] 08/06/2019 Ventral hernia [K43.9] 12/21/2019 Recurrent ventral hernia [K43.2] 01/24/2020 Mixed obsessional thoughts and acts [F42.2] 05/31/2022 Recurrent major depressive disorder, in partial*05/31/2022 Chronic post-traumatic stress disorder (PTSD) [*05/31/2022 Bowel obstruction (HCC) [K56.609] 03/09/2023 03/09/2023 Ventral hernia without obstruction or gangrene *03/10/2023 Encounter Status:Closed by BRENNAN AZUL on 05/21/25 Normal [facility] HIGH SENSITIVITY TROPONIN, S ERIAL BASELINEon 05-21-2025 TROPONIN HS SERIAL BASELINE <3 Normal <=14 [facility] Comment on above: Result Comment: In i ndividuals presenting with symptoms > 2h, a baseline troponin <= 5 ng/L suggests acutecardiac injury is unlikely and further serial testing is generally not indicated. Performed By: #### L AB15, LAB99, [id number], [id number], [id number] ####Online Banking Specialist: SOL ZENG ([phone])[facility])[address] [place] [address] HIGH SENSITIVITY TROPONIN, S ERIAL, SECOND TESTon 05-21-2025 2H TROPONIN HS (SERIAL 2ND TROPONIN) <3 Normal <=14 [facility] Comment on above: Result Comment: Delt a value was unable to be calculated as both baseline and serial troponin tests were below the level of quantitation. As both baseline and 2h troponin values are below the level of quantitation, acute cardiac injury is unlikely. Performed By: #### L [id number] ####Online Banking Specialist: SOL ZENG ([phone])[facility])[address] [place] [address] LIPASEon 05-21-2025 Lipase [Catalytic activity/Vol] 20 U/L Normal <55 [facility] Comment on above: Performed By: #### L AB15, LAB99, [id number], [id number], [id number] ####Online Banking Specialist: SOL ZENG ([phone])[facility] [place] [address] Laboratory - Chemistry and C hemistry - challengeon 05-21-2025 Magnesium [Mass/Vol] 1.7 mg/dL 1.6 - 2 .6 mg/dL [facility] Lipase [Catalytic activity/Vol] 20 U/L NINF - 55 U/L [facility] TSH Qn 0.88 m[IU]/L [facility] MAGNESIUMon 05-21-2025 Magnesium [Mass/Vol] 1.7 mg/dL Normal 1.6-2.6 [facility] Comment on above: Result Comment: VERA Dickey COMMENTS:Higher values can be expected in females during menses. Performed By: #### L AB15, LAB99, [id number], [id number], [id number] ####Online Banking Specialist: SOL ZENG ([phone])[facility] ([facility])[address] [place] [address] Magnesium [Mass/Vol]on 05-21 Interpretation and review of laboratory results Normal [facility] Higher values can be expected in females during menses. [facility] NT PRO BNPon 05-21-2025 Natriuretic peptide B (Bld) [Mass/Vol] 40 pg/mL Normal <125 [facility] Comment on above: Performed By: #### L AB15, LAB99, [id number], [id number], [id number] ####Online Banking Specialist: SOL ZENG ([phone])[facility])[address] [place] [address] Natriuretic peptide B [Mass/ Vol]on 05-21-2025 Interpretation and review of laboratory results Normal [facility] Natriuretic peptide B (Bld) [Mass/Vol] 40 pg/mL NINF - 125 pg/mL [facility] No Panel Informationon 05-21 2h Troponin HS (Serial 2nd Troponin) ng/L NINF - 14 ng/L [facility] Comment on above: Delta value was unab le to be calculated as both baseline and serial troponin tests were below the level of quantitation. As both baseline and 2h troponin values are below the level of quantitation, acute cardiac injury is unlikely. Interpretation and review of laboratory results Normal [facility] Interpretation and review of laboratory results Normal [facility] Troponin HS Serial Baseline ng/L NINF - 14 ng/L [facility] Comment on above: In individuals prese nting with symptoms > 2h, a baseline troponin <= 5 ng/L suggests acute cardiac injury is unlikely and further serial testing is generally not indicated. [facility] Progress Noteon 05-21-2025 Progress Note Normal [facility] Progress Note Normal [facility] TSH Qnon 05-21-2025 Interpretation and review of laboratory results Normal [facility] BLOOD TYPE AND SCREEN GELon 05-20-2025 ABO GROUPING A Normal [facility] Comment on above: Performed By: #### L [id number] ####Online Banking Specialist: SOL ZENG ([phone])[facility] BLOOD [facility] ([facility])[address] [place] [address] RH TYPE IN BLOOD Positive Normal [facility] Comment on above: Performed By: #### L [id number] ####Online Banking Specialist: SOL ZENG ([phone])[facility] BLOOD [facility] ([facility])[address] [place] [address] Blood type and Crossmatch pa richard (Bld)on 05-20-2025 ABO group Nom (Bld) A [facility] Blood group antibody screen GEL Ql Negative [facility] D Ag Ql (RBC) Positive [facility] CBC W Auto Differential pane l (Bld)on 05-20-2025 Basophils (Bld) [#/Vol] 0 10*3/uL 0.0 - 0.2 10*3/uL [facility] Basophils/100 WBC (Bld) 0.4 % 0.0 - 2.0 % [facility] Eosinophils (Bld) [#/Vol] 0.1 10*3/uL 0.0 - 0.5 10*3/uL [facility] Eosinophils/100 WBC (Bld) 1.1 % 0.0 - 6.0 % [facility] Erythrocyte distribution width (RBC) [Ratio] 12.5 % 11.5 - 15.0 % [facility] Hematocrit (Bld) [Volume fraction] 39.1 % 35.0 - 47.0 % [facility] Hemoglobin (Bld) [Mass/Vol] 13 g/dL 11.7 - 16.0 g/dL [facility] Immature granulocytes (Bld) [#/Vol] 0 10*3/uL NINF - 0.1 10*3/uL [facility] [employer] Immature granulocytes/100 WBC (Bld) 0.5 % 0.0 - 2.0 % [facility] Interpretation and review of laboratory results Abnormal [facility] Lymphocytes (Bld) [#/Vol] 1.9 10*3/uL 1.0 - 4.3 10*3/uL [facility] Lymphocytes/100 WBC (Bld) 22.3 % 15.0 - 45.0 % [facility] MCH (RBC) [Entitic mass] 30.9 pg 26.0 - 34.0 pg [facility] MCHC (RBC) [Mass/Vol] 33.2 % 30.5 - 36.0 % [facility] MCV (RBC) [Entitic vol] 92.9 fL 77.0 - 99.0 fL [facility] Monocytes (Bld) [#/Vol] 0.5 10*3/uL 0.0 - 0.9 10*3/uL [facility] Monocytes/100 WBC (Bld) 6.3 % 5.0 - 13.0 % [facility] Neutrophils (Bld) [#/Vol] 5.9 10*3/uL 1.8 - 7.5 10*3/uL [facility] Neutrophils/100 WBC (Bld) 69.4 % 38.0 - 82.0 % [facility] Nucleated RBC/100 WBC (Bld) [Ratio] 0 % [facility] Platelet mean volume (Bld) [Entitic vol] 8.8 fL Low 9.0 - 12.7 fL [facility] Platelets (Bld) [#/Vol] 239 10*3/uL 140 - 440 10*3/uL [facility] RBC (Bld) [#/Vol] 4.21 10*6/uL 3.80 - 5.20 10*6/uL [facility] WBC (Bld) [#/Vol] 8.4 10*3/uL 3.6 - 10.7 10*3/uL [facility] CBC WITH AUTO DIFFERENTIALon 05-20-2025 Basophils (Bld) [#/Vol] 0.0 10*3/uL Normal 0.0-0.2 [facility] Comment on above: Performed By: #### L [id number] ####Online Banking Specialist: SOL ZENG ([phone])[facility])[address] [place] [address] Basophils/100 WBC (Bld) 0.4 % Normal 0.0-2.0 [facility] Comment on above: Performed By: #### L [id number] ####Online Banking Specialist: SOL ZENG ([phone])[facility])[address] [place] [address] Eosinophils (Bld) [#/Vol] 0.1 10*3/uL Normal 0.0-0.5 [facility] Comment on above: Performed By: #### L [id number] ####Online Banking Specialist: SOL ZENG ([phone])[address] Eosinophils/100 WBC (Bld) 1.1 % Normal 0.0-6.0 [facility] Comment on above: Performed By: #### L [id number] ####Online Banking Specialist: SOL ZENG ([phone])[address] Erythrocyte distribution width (RBC) [Ratio] 12.5 % Normal 11.5-15.0 [facility] Comment on above: Performed By: #### L [id number] ####Online Banking Specialist: SOL ZENG ([phone])[address] Hematocrit (Bld) [Volume fraction] 39.1 % Normal 35.0-47.0 [facility] Comment on above: Performed By: #### L [id number] ####Online Banking Specialist: SOL ZENG ([phone])[address] Hemoglobin (Bld) [Mass/Vol] 13.0 g/dL Normal 11.7-16.0 [facility] Comment on above: Performed By: #### L [id number] ####Online Banking Specialist: SOL ZENG ([phone])[facility])[address] [place] [address] IMMATURE GRANS % 0.5 % Normal 0.0-2.0 [facility] Comment on above: Performed By: #### L [id number] ####Online Banking Specialist: SOL ZENG ([phone])[facility])[address] [place] [address] IMMATURE GRANS ABSOLUTE 0.0 10*3/uL Normal <0.1 [facility] Comment on above: Performed By: #### L [id number] ####Online Banking Specialist: SOL ZENG ([phone])[facility])[address] [place] [address] Lymphocytes (Bld) [#/Vol] 1.9 10*3/uL Normal 1.0-4.3 [facility] Comment on above: Performed By: #### L [id number] ####Online Banking Specialist: SOL ZENG ([phone])[facility])[address] [place] [address] Lymphocytes/100 WBC (Bld) 22.3 % Normal 15.0-45.0 [facility] Comment on above: Performed By: #### L [id number] ####Online Banking Specialist: SOL ZENG ([phone])[facility])[address] [place] [address] MCH (RBC) [Entitic mass] 30.9 pg Normal 26.0-34.0 [facility] Comment on above: Performed By: #### L [id number] ####Online Banking Specialist: SOL ZENG ([phone])[facility])[address] [place] [address] MCHC 33.2 % Normal 30.5-36.0 [facility] Comment on above: Performed By: #### L [id number] ####Online Banking Specialist: SOL ZENG ([phone])[facility])[address] [place] [address] MCV (RBC) [Entitic vol] 92.9 fL Normal 77.0-99.0 [facility] Comment on above: Performed By: #### L [id number] ####Online Banking Specialist: SOL ZENG ([phone])[facility])[address] [place] [address] Monocytes (Bld) [#/Vol] 0.5 10*3/uL Normal 0.0-0.9 [facility] Comment on above: Performed By: #### L [id number] ####Online Banking Specialist: SOL ZENG ([phone])[facility] ([facility])[address] [place] [address] Monocytes/100 WBC (Bld) 6.3 % Normal 5.0-13.0 [facility] Comment on above: Performed By: #### L [id number] ####Online Banking Specialist: SOL ZENG ([phone])[facility])[address] [place] [address] NEUTROPHILS ABSOLUTE 5.9 10*3/uL Normal 1.8-7.5 [facility] Comment on above: Performed By: #### L [id number] ####Online Banking Specialist: SOL ZENG ([phone])[facility])[address] [place] [address] Neutrophils/100 WBC (Bld) 69.4 % Normal 38.0-82.0 [facility] Comment on above: Performed By: #### L [id number] ####Online Banking Specialist: SOL ZENG ([phone])[facility])[address] [place] [address] NRBC 0.0 /100 WBCs Normal 0.0-2.0 [facility] Comment on above: Performed By: #### L [id number] ####Online Banking Specialist: SOL ZENG ([phone])[facility])[address] [place] [address] Platelet mean volume (Bld) [Entitic vol] 8.8 fL Low 9.0-12.7 [facility] Comment on above: Performed By: #### L [id number] ####Online Banking Specialist: SOL ZENG ([phone])[facility] ([facility])[address] [place] [address] Platelets (Bld) [#/Vol] 239 10*3/uL Normal 140-440 [facility] Comment on above: Performed By: #### L [id number] ####Online Banking Specialist: SOL ZENG ([phone])[facility] ([facility])[address] [place] [address] RBC (Bld) [#/Vol] 4.21 10*6/uL Normal 3.80-5.20 [facility] Comment on above: Performed By: #### L [id number] ####Online Banking Specialist: SOL ZENG ([phone])[facility] ([facility])[address] [place] [address] WBC (Bld) [#/Vol] 8.4 10*3/uL Normal 3.6-10.7 [facility] Comment on above: Performed By: #### L [id number] ####Online Banking Specialist: SOL ZENG ([phone])[facility] ([facility])[address] [place] [address] COMPLETE URINALYSIS WITH REF TOM TO [facility] 05-20-2025 BILIRUBIN, TOTAL PRESENCE IN URINE Negative Normal Negative [facility] Comment on above: Performed By: #### L [id number] ####Online Banking Specialist: SOL ZENG ([phone])[facility] ([facility])[address] [place] [address] Clarity (U) Clear Normal Clear [facility] Comment on above: Performed By: #### L [id number] ####Online Banking Specialist: SOL ZENG ([phone])[facility])[address] [place] [address] Color (U) Light Yellow Normal Lt. Yellow [facility] Comment on above: Performed By: #### L [id number] ####Online Banking Specialist: SOL ZENG ([phone])[facility] ([facility])[address] [place] [address] GLUCOSE (MG/DL) IN URINE Normal Normal Normal (<70) [facility] Comment on above: Performed By: #### L [id number] ####Online Banking Specialist: SOL ZENG ([phone])[facility] ([facility])[address] [place] [address] HEMOGLOBIN PRESENCE IN URINE Negative Normal Negative [facility] Comment on above: Performed By: #### L [id number] ####Online Banking Specialist: SOL ZENG ([phone])[facility] ([facility])[address] [place] [address] Ketones Ql (U) Negative Normal Negative [facility] Comment on above: Performed By: #### L [id number] ####Online Banking Specialist: SOL ZENG ([phone])[facility] ([facility])[address] [place] [address] LEUKOCYTE ESTERASE PRESENCE IN URINE BY TEST STRIP Negative Normal Negative [facility] Comment on above: Performed By: #### L [id number] ####Online Banking Specialist: SOL ZENG ([phone])[facility] ([facility])[address] [place] [address] NITRITE PRESENCE IN URINE Negative Normal Negative [facility] Comment on above: Performed By: #### L [id number] ####Online Banking Specialist: SOL ZENG ([phone])[facility] ([facility])[address] [place] [address] pH (U) 6.0 [pH] Normal 5.0-8.0 [facility] Comment on above: Performed By: #### L [id number] ####Online Banking Specialist: SOL ZENG ([phone])[facility])[address] [place] [address] Protein (U) [Mass/Vol] Negative Normal Negative [facility] Comment on above: Performed By: #### L [id number] ####Online Banking Specialist: SOL ZENG ([phone])[facility])[address] [place] [address] Specific gravity (U) [Rel density] 1.019 Normal 1.005-1.03 0 [facility] Comment on above: Result Comment: VERA Dickey COMMENTS:A specimen with <=10 WBC is not consistent with inflammation. This specimen will not reflex to a urine culture. Performed By: #### L [id number] ####Online Banking Specialist: SOL ZENG ([phone])[facility])[address] [place] [address] UROBILINOGEN (MG/DL) IN URINE Normal Normal Normal (0-1) [facility] Comment on above: Performed By: #### L [id number] ####Online Banking Specialist: SOL ZENG ([phone])[facility])[address] [place] [address] COMPREHENSIVE METABOLIC PANE Randy 05-20-2025 Albumin [Mass/Vol] 4.1 g/dL Normal 3.5-5.0 [facility] Comment on above: Performed By: #### Rachael AB99, LAB17, [id number] ####Online Banking Specialist: SOL ZENG ([phone])[facility])[address] [place] [address] ALP [Catalytic activity/Vol] 37 U/L Low 40-150 [facility] Comment on above: Performed By: #### L AB99, LAB17, [id number] ####Online Banking Specialist: SOL ZENG ([phone])[facility])[address] [place] [address] ALT [Catalytic activity/Vol] 15 U/L Normal <30 [facility] Comment on above: Performed By: #### L AB99, LAB17, [id number] ####Online Banking Specialist: SOL ZENG ([phone])[address] Anion gap [Moles/Vol] 11 mmol/L Normal 3-13 [facility] Comment on above: Performed By: #### L AB99, LAB17, [id number] ####Online Banking Specialist: SOL [phone])[facility] [place] [address] AST [Catalytic activity/Vol] 16 U/L Normal <34 [facility] Comment on above: Performed By: #### Rachael AB99, LAB17, [id number] ####Online Banking Specialist: SOL ZENG ([phone])[facility] ([facility])[address] [place] [address] Bilirubin [Mass/Vol] 0.3 mg/dL Normal <1.2 [facility] Comment on above: Performed By: #### Rachael ATKINS, LAB17, [id number] ####Online Banking Specialist: SOL ZENG ([phone])[facility] ([facility])[address] [place] [address] Calcium [Mass/Vol] 8.9 mg/dL Normal 8.4-10.2 [facility] Comment on above: Performed By: #### Rachael ATKINS, LAB17, [id number] ####Online Banking Specialist: SOL ZENG ([phone])[facility] ([facility])[address] [place] [address] [place] Chloride [Moles/Vol] 105 mmol/L Normal 98-107 [facility] Comment on above: Performed By: #### Rachael ATKINS, LAB17, [id number] ####Online Banking Specialist: SOL ZENG ([phone])[facility] ([facility])[address] [place] [address] CO2 [Moles/Vol] 18 mmol/L Low 22-29 [facility] Comment on above: Performed By: #### Rachael ATKINS, LAB17, [id number] ####Online Banking Specialist: SOL ZENG ([phone])[facility] [facility] [place] [address] [place] Creatinine [Mass/Vol] 0.66 mg/dL Normal 0.57-1.11 [facility] Comment on above: Performed By: #### Rachael AB99, LAB17, [id number] ####Online Banking Specialist: SOL ZENG ([phone])[facility] ([facility])[address] [place] [address] GLOMERULAR FILTRATION RATE ML/MIN/1.73 SQ M.PREDICTED >90.0 Normal >60.0 [facility] Comment on above: Result Comment: Calc ulation based on the Chronic Kidney Disease Epidemiology Collaboration (CKD-EPI) equation refit without adjustment for race Performed By: #### L AB99, LAB17, [id number] ####Online Banking Specialist: SOL ZENG ([phone])[facility])[address] [place] [address] [place] Glucose [Mass/Vol] 116 mg/dL High 74-100 [facility] Comment on above: Performed By: #### Rachael AB99, LAB17, [id number] ####Online Banking Specialist: SOL ZENG ([phone])[facility])[address] [place] [address] Potassium [Moles/Vol] 3.1 mmol/L Low 3.5-5.1 [facility] Comment on above: Result Comment: [facility] potassium values may be up to 0.5 mmol/L lower than serum values. Performed By: #### Rachael AB99, LAB17, [id number] ####Online Banking Specialist: SOL ZENG ([phone])[facility] ([facility])[address] [place] [address] Protein [Mass/Vol] 6.8 g/dL Normal 6.4-8.3 [facility] Comment on above: Performed By: #### Rachael MCCLAIN99, LAB17, [id number] ####Online Banking Specialist: SOL ZENG ([phone])[facility])[address] [place] [address] [place] Sodium [Moles/Vol] 134 mmol/L Low 136-145 [facility] Comment on above: Performed By: #### Rachael AB99, LAB17, [id number] ####Online Banking Specialist: SOL ZENG ([phone])[facility])[address] [place] [address] [place] Urea nitrogen [Mass/Vol] 11 mg/dL Normal 8-21 [facility] Comment on above: Performed By: #### L AB99, LAB17, [id number] ####Online Banking Specialist: SOL ZENG ([phone])[facility] ([facility])[address] [place] [address] CT ABDOMEN PELVIS W CONTRAST on 05-20-2025 CT ABDOMEN PELVIS W CONTRAST Normal [facility] CT Abdomen and Pelvis W cont rast Oscar 05-20-2025 1. There is a postsurgical small bowel anastomosis at the midline, similar to 05/09/2025, with eccentric circumferential wall thickening which could represent partial intussusception versus mass and/or inflammation. If pain persists, consider follow-up with GI. (small bowel fluoroscopic exam 05/10/2025 demonstrated no obstruction). 2. Ventral hernia repair changes with multiple ventral fatty hernias. 3. Nonobstructive right renal calculus. No hydronephrosis. 4. Additional findings, as above. Report Dictated on Electronically Signed By: Michelle Velazquez MD Electronically Signed Date/Time: 05/20/2025 6:20 PM [facility] RADIOLOGY SYSTEM Patient Name: MEL WALL : 1985 [facility]#: [id number] Exam Date/Time: 05/20/2025 17:56 Procedure: CT ABDOMEN PELVIS W CONTRAST Ordering Provider: RATLIFF ANDREW Reason For Exam: ventral hernia, previous repair with mesh Gender: Female Age: 39 years History: ventral hernia, previous repair with mesh Exam: CT ABDOMEN PELVIS W CONTRAST Indication: Severe abdominal pain upper umbilical region Scan Parameters: Multiple axial CT images were obtained of the abdomen and pelvis. Coronal and sagittal reconstructions were reviewed as well. ALARA protocol. Dose reduction was employed with automated exposure control. Contrast: 75 mL of Isovue-370 IV contrast Comparison: CT abdomen and pelvis 05/09/2025 FINDINGS: The lung bases are clear. The heart is not enlarged. There are no atherosclerotic calcifications along the aorta or branches. There is a stable 1.3 cm sclerotic focus in T9, unchanged from 09/13/2023. The gallbladder is absent. Mild intrahepatic and extrahepatic biliary duct distention likely sequela from cholecystectomy. The liver, pancreas, spleen, and adrenal glands are within normal limits. There is mild nodularity of the adrenal glands, unchanged. There is no hydronephrosis. Punctate right renal calculi are present. Bilateral renal cysts appear similar to prior exam, no follow-up required. The bladder contour is normal, no bladder wall thickening. Pelvic phleboliths are present. The uterus is anteverted and approximates the ventral abdominal wall. Bilateral tubal ligation clips noted. Limited evaluation of the ovaries with follicular cystic changes. The appendix is not visualized, no CT evidence for appendicitis. There is a small sliding-type hiatal hernia. There is a postsurgical small bowel anastomosis at the midline with eccentric circumferential wall thickening which could represent partial intussusception versus mass and/or inflammation, also noted on prior exam (small bowel fluoroscopic exam 05/10/2025 demonstrated no obstruction). There is no free air and no free fluid. Ventral hernia repair changes. There is diastases of the abdominal rectus muscle at the midline with small fatty ventral hernias. There is no adenopathy. [facility] RADIOLOGY SYSTEM Michelle Velazquez MD - 05/20/2025 Patient Name: MEL WALL : 1985 [facility]#: [id number] Exam Date/Time: 05/20/2025 17:56 Procedure: CT ABDOMEN PELVIS W CONTRAST Ordering Provider: RATLIFF ANDREW Reason For Exam: ventral hernia, previous repair with mesh Gender: Female Age: 39 years History: ventral hernia, previous repair with mesh Exam: CT ABDOMEN PELVIS W CONTRAST Indication: Severe abdominal pain upper umbilical region Scan Parameters: Multiple axial CT images were obtained of the abdomen and pelvis. Coronal and sagittal reconstructions were reviewed as well. ALARA protocol. Dose reduction was employed with automated exposure control. Contrast: 75 mL of Isovue-370 IV contrast Comparison: CT abdomen and pelvis 05/09/2025 FINDINGS: The lung bases are clear. The heart is not enlarged. There are no atherosclerotic calcifications along the aorta or branches. There is a stable 1.3 cm sclerotic focus in T9, unchanged from 09/13/2023. The gallbladder is absent. Mild intrahepatic and extrahepatic biliary duct distention likely sequela from cholecystectomy. The liver, pancreas, spleen, and adrenal glands are within normal limits. There is mild nodularity of the adrenal glands, unchanged. There is no hydronephrosis. Punctate right renal calculi are present. Bilateral renal cysts appear similar to prior exam, no follow-up required. The bladder contour is normal, no bladder wall thickening. Pelvic phleboliths are present. The uterus is anteverted and approximates the ventral abdominal wall. Bilateral tubal ligation clips noted. Limited evaluation of the ovaries with follicular cystic changes. The appendix is not visualized, no CT evidence for appendicitis. There is a small sliding-type hiatal hernia. There is a postsurgical small bowel anastomosis at the midline with eccentric circumferential wall thickening which could represent partial intussusception versus mass and/or inflammation, also noted on prior exam (small bowel fluoroscopic exam 05/10/2025 demonstrated no obstruction). There is no free air and no free fluid. Ventral hernia repair changes. There is diastases of the abdominal rectus muscle at the midline with small fatty ventral hernias. There is no adenopathy. IMPRESSION: 1. There is a postsurgical small bowel anastomosis at the midline, similar to 05/09/2025, with eccentric circumferential wall thickening which could represent partial intussusception versus mass and/or inflammation. If pain persists, consider follow-up with GI. (small bowel fluoroscopic exam 05/10/2025 demonstrated no obstruction). 2. Ventral hernia repair changes with multiple ventral fatty hernias. 3. Nonobstructive right renal calculus. No hydronephrosis. 4. Additional findings, as above. Report Dictated on Electronically Signed By: Michelle Velazquez MD Electronically Signed Date/Time: 05/20/2025 6:20 PM EDT [facility] [employer] Radiology Study observation (narrative) [facility] [employer] CT Abdomen and Pelvis W cont rast IVOrdered By: Michelle Velazqeuz on 05-20-2025 [facility] [employer] Work Phone: Comprehensive metabolic 1998 panelon 05-20-2025 Albumin [Mass/Vol] 4.1 g/dL 3.5 - 5.0 g/dL [facility] [employer] ALP [Catalytic activity/Vol] 37 U/L Low 40 - 150 U/L [facility] [employer] ALT [Catalytic activity/Vol] 15 U/L NINF - 30 U/L [facility] [employer] Anion gap [Moles/Vol] 11 mmol/L 3 - 13 mmol/L [facility] [employer] AST [Catalytic activity/Vol] 16 U/L NINF - 34 U/L [facility] Bilirubin [Mass/Vol] 0.3 mg/dL NINF - 1.2 mg/dL [facility] Calcium [Mass/Vol] 8.9 mg/dL 8.4 - 10. 2 mg/dL [facility] Chloride [Moles/Vol] 105 mmol/L 98 - 10 7 mmol/L [facility] CO2 [Moles/Vol] 18 mmol/L Low 22 - 29 mmol/L [facility] Creatinine [Mass/Vol] 0.66 mg/dL 0.57 - 1.11 mg/dL [facility] GFR/1.73 sq M.predicted (S/P/Bld) [Vol rate/Area] - PINF [facility] Comment on above: Calculation based on the Chronic Kidney Disease Epidemiology Collaboration (CKD-EPI) equation refit without adjustment for race Glucose [Mass/Vol] 116 mg/dL High 74 - 100 mg/dL [facility] Interpretation and review of laboratory results Abnormal [facility] Potassium [Moles/Vol] 3.1 mmol/L Low 3.5 - 5.1 mmol/L [facility] Comment on above: Plasma potassium kelsy ues may be up to 0.5 mmol/L lower than serum values. Protein [Mass/Vol] 6.8 g/dL 6.4 - 8.3 g/dL [facility] Sodium [Moles/Vol] 134 mmol/L Low 136 - 145 mmol/L [facility] Urea nitrogen [Mass/Vol] 11 mg/dL 8 - 21 mg/dL [facility] Consulton 05-20-2025 Consult Normal [facility] ED Nursing Noteon 05-20-2025 ED Nursing Note Patient transfer to inpatient room. Patient calm and responsive to staff. Breathing is even and unlabored, no sx of distress noted at this time. Normal [facility] ED Provider Noteon ED Provider Note Normal [facility] HCG QUALITATIVE URINEon 05-10 Beta HCG ( test) Ql (U) Negative Normal Negative [facility] Comment on above: Result Comment: Plea se note: Very dilute urine specimens, as indicated by a low specific gravity, may not contain loan representative levels of hCG. If is still suspected, a first morning urine specimen should be collected 48 hours later and tested.ORDER COMMENTS:If age 10-60 and no hysterectomy. is the most common reason for HCG in urine, although choriocarcinoma, hydatidiform mole, and certain nontrophoblastic malignancies also result in detectable urinary HCG levels. Sensitivity = 20mIU/mL. Performed By: #### L [id number] ####Online Banking Specialist: SOL ZENG ([phone])[facility] ([facility])[address] [place] [address] LIPASEon 05-20-2025 Lipase [Catalytic activity/Vol] 29 U/L Normal <55 [facility] Comment on above: Performed By: #### L AB99, LAB17, [id number] ####Online Banking Specialist: SOL ZENG ([phone])[facility] ([facility])[address] [place] [address] Laboratory - Chemistry and C hemistry - challengeon 05-20-2025 Lipase [Catalytic activity/Vol] 29 U/L NINF - 55 U/L [facility] Laboratory - Chemistry and C hemistry - challengeOrdered By: Jose Sanderson on 05-20-2025 Beta HCG ( test) Ql Negative Negative [facility] Comment on above: Please note: Very di lute urine specimens, as indicated by a low specific gravity, may not contain loan representative levels of hCG. If is still suspected, a first morning urine specimen should be collected 48 hours later and tested. Beta HCG ( test) Ql (U) is the most common reason for HCG in urine, although choriocarcinoma, hydatidiform mole, and certain nontrophoblastic malignancies also result in detectable urinary HCG levels. Sensitivity = 20mIU/mL. [facility] [employer] Lipase [Catalytic activity/V ol]on 05-20-2025 Interpretation and review of laboratory results Normal [facility] No Panel InformationOrdered By: Jose Sanderson on 05-20-2025 [facility] [employer] THYROID STIMULATING HORMONEo n 05-20-2025 THYROID STIMULATING HORMONE 0.88 uIU/mL Normal 0.35-4.94 [facility] Comment on above: Performed By: #### L AB99, LAB17, [id number] ####Online Banking Specialist: SOL ZENG ([phone])[facility] ([facility])[address] [place] [address] Urinalysis complete panel (U )on 05-20-2025 Bilirubin Ql (U) Negative Negative mg/dL [facility] Clarity (U) Clear Clear [facility] Color (U) Light Yellow Lt. Yellow [facility] Glucose Ql (U) Normal Normal (<70) mg/dL [facility] Hemoglobin Ql (U) Negative Negative mg/dL [facility] Interpretation and review of laboratory results Normal [facility] Ketones (U) [Mass/Vol] Negative Negative mg/dL [facility] Leukocyte esterase Test strip Ql (U) Negative Negative Peace/uL [facility] Nitrite Ql (U) Negative Negative [facility] pH (U) 6.0 [pH] 5.0 - 8.0 pH [facility] Protein (U) [Mass/Vol] Negative Negative mg/dL [facility] Specific gravity (U) [Rel density] 1.019 1.005 - 1.030 [facility] Urobilinogen (U) [Mass/Vol] Normal Normal (0-1) mg/dL [facility] A specimen with <=10 WBC is not consistent with inflammation. This specimen will not reflex to a urine culture. [facility] 30on 05-11-2025 30 Normal [facility] BASIC METABOLIC PANELon Anion gap [Moles/Vol] 7 mmol/L Normal 3-13 [facility] Comment on above: Performed By: #### L AB15, [id number] ####Online Banking Specialist: SOL ZENG ([phone])[address] Calcium [Mass/Vol] 8.3 mg/dL Low 8.4-10.2 [facility] Comment on above: Performed By: #### L AB15, [id number] ####Online Banking Specialist: SOL ZENG ([phone])[facility])[address] [place] [address] Chloride [Moles/Vol] 109 mmol/L High 98-107 [facility] Comment on above: Performed By: #### L AB15, [id number] ####Online Banking Specialist: SOL [phone])[facility])[address] [place] [address] CO2 [Moles/Vol] 21 mmol/L Low 22-29 [facility] Comment on above: Performed By: #### L AB15, [id number] ####Online Banking Specialist: SOL ZENG ([phone])[facility])[address] [place] [address] Creatinine [Mass/Vol] 0.52 mg/dL Low 0.57-1.11 [facility] Comment on above: Performed By: #### L AB15, [id number] ####Online Banking Specialist: SOL ZENG ([phone])[facility])[address] [place] [address] GLOMERULAR FILTRATION RATE ML/MIN/1.73 SQ M.PREDICTED >90.0 Normal >60.0 [facility] Comment on above: Result Comment: Calc ulation based on the Chronic Kidney Disease Epidemiology Collaboration (CKD-EPI) equation refit without adjustment for race Performed By: #### L AB15, [id number] ####Online Banking Specialist: SOL ZENG ([phone])[facility] ([facility])[address] [place] [address] Glucose [Mass/Vol] 98 mg/dL Normal 74-100 [facility] Comment on above: Performed By: #### L AB15, [id number] ####Online Banking Specialist: SOL ZENG ([phone])[facility])[address] [place] [address] Potassium [Moles/Vol] 4.0 mmol/L Normal 3.5-5.1 [facility] Comment on above: Result Comment: [facility] potassium values may be up to 0.5 mmol/L lower than serum values. Performed By: #### L AB15, [id number] ####Online Banking Specialist: SOL ZENG ([phone])[facility])[address] [place] [address] [place] Sodium [Moles/Vol] 137 mmol/L Normal 136-145 [facility] Comment on above: Performed By: #### L AB15, [id number] ####Online Banking Specialist: SOL ZENG ([phone])[facility] ([facility])[address] [place] [address] Urea nitrogen [Mass/Vol] 8 mg/dL Normal 8-21 [facility] Comment on above: Performed By: #### L AB15, [id number] ####Online Banking Specialist: SOL ZENG ([phone])[facility] ([facility])[address] [place] [address] Basic metabolic 1998 panelon 05-11-2025 Anion gap [Moles/Vol] 7 mmol/L 3 - 13 mmol/L [facility] Calcium [Mass/Vol] 8.3 mg/dL Low 8.4 - 10. 2 mg/dL [facility] Chloride [Moles/Vol] 109 mmol/L High 98 - 10 7 mmol/L [facility] CO2 [Moles/Vol] 21 mmol/L Low 22 - 29 mmol/L [facility] Creatinine [Mass/Vol] 0.52 mg/dL Low 0.57 - 1.11 mg/dL [facility] GFR/1.73 sq M.predicted (S/P/Bld) [Vol rate/Area] - PINF [facility] Comment on above: Calculation based on the Chronic Kidney Disease Epidemiology Collaboration (CKD-EPI) equation refit without adjustment for race Glucose [Mass/Vol] 98 mg/dL 74 - 100 mg/dL [facility] Interpretation and review of laboratory results Abnormal [facility] Potassium [Moles/Vol] 4 mmol/L 3.5 - 5.1 mmol/L [facility] Comment on above: Plasma potassium kelsy ues may be up to 0.5 mmol/L lower than serum values. Sodium [Moles/Vol] 137 mmol/L 136 - 145 mmol/L [facility] Urea nitrogen [Mass/Vol] 8 mg/dL 8 - 21 mg/dL [facility] CBC (HEMOGRAM)on 05-11-2025 Erythrocyte distribution width (RBC) [Ratio] 12.4 % Normal 11.5-15.0 [facility] Comment on above: Performed By: #### L [id number] ####Online Banking Specialist: SOL ZENG ([phone])[facility] [place] [address] Hematocrit (Bld) [Volume fraction] 34.1 % Low 35.0-47.0 [facility] Comment on above: Performed By: #### L [id number] ####Online Banking Specialist: SOL ZENG ([phone])[facility])[address] [place] [address] Hemoglobin (Bld) [Mass/Vol] 11.2 g/dL Low 11.7-16.0 [facility] Comment on above: Performed By: #### L [id number] ####Online Banking Specialist: SOL ZENG ([phone])[facility] ([facility])[address] [place] [address] MCH (RBC) [Entitic mass] 31.2 pg Normal 26.0-34.0 [facility] Comment on above: Performed By: #### L AB294 ####Online Banking Specialist: SOL ZENG ([phone])[facility])[address] [place] [address] MCHC 32.8 % Normal 30.5-36.0 [facility] Comment on above: Performed By: #### L AB294 ####Online Banking Specialist: SOL ZENG ([phone])[facility])[address] [place] [address] MCV (RBC) [Entitic vol] 95.0 fL Normal 77.0-99.0 [facility] Comment on above: Performed By: #### L [id number] ####Online Banking Specialist: SOL ZENG ([phone])[facility])[address] [place] [address] Platelet mean volume (Bld) [Entitic vol] 8.8 fL Low 9.0-12.7 [facility] Comment on above: Performed By: #### L AB294 ####Online Banking Specialist: SOL ZENG ([phone])[facility])[address] [place] [address] Platelets (Bld) [#/Vol] 234 10*3/uL Normal 140-440 [facility] Comment on above: Performed By: #### L [id number] ####Online Banking Specialist: SOL ZENG ([phone])[facility] ([facility])[address] [place] [address] RBC (Bld) [#/Vol] 3.59 10*6/uL Low 3.80-5.20 [facility] Comment on above: Performed By: #### L AB294 ####Online Banking Specialist: SOL ZENG ([phone])[facility])[address] [place] [address] WBC (Bld) [#/Vol] 5.6 10*3/uL Normal 3.6-10.7 [facility] Comment on above: Performed By: #### L [id number] ####Online Banking Specialist: SOL ZENG ([phone])[facility])[address] [place] [address] CBC panel Auto (Bld)on 05-11 Erythrocyte distribution width (RBC) [Ratio] 12.4 % 11.5 - 15.0 % [facility] Hematocrit (Bld) [Volume fraction] 34.1 % Low 35.0 - 47.0 % [facility] Hemoglobin (Bld) [Mass/Vol] 11.2 g/dL Low 11.7 - 16.0 g/dL [facility] Interpretation and review of laboratory results Abnormal [facility] MCH (RBC) [Entitic mass] 31.2 pg 26.0 - 34.0 pg [facility] MCHC (RBC) [Mass/Vol] 32.8 % 30.5 - 36.0 % [facility] MCV (RBC) [Entitic vol] 95 fL 77.0 - 99.0 fL [facility] Platelet mean volume (Bld) [Entitic vol] 8.8 fL Low 9.0 - 12.7 fL [facility] Platelets (Bld) [#/Vol] 234 10*3/uL 140 - 440 10*3/uL [facility] RBC (Bld) [#/Vol] 3.59 10*6/uL Low 3.80 - 5.20 10*6/uL [facility] WBC (Bld) [#/Vol] 5.6 10*3/uL 3.6 - 10.7 10*3/uL [facility] LACTIC ACID WITH REFLEXon Lactate [Moles/Vol] 1.3 mmol/L Normal 0.5-2.2 [facility] Comment on above: Performed By: #### L [id number] ####Online Banking Specialist: SOL ZENG ([phone])[facility] ([facility])[address] [place] [address] Laboratory - Chemistry and C hemistry - challengeon 05-11-2025 Magnesium [Mass/Vol] 1.9 mg/dL 1.6 - 2 .6 mg/dL [facility] Lactate [Moles/Vol] 1.3 mmol/L 0.5 - 2. 2 mmol/L [facility] MAGNESIUMon 05-11-2025 Magnesium [Mass/Vol] 1.9 mg/dL Normal 1.6-2.6 [facility] Comment on above: Result Comment: VERA Dickey COMMENTS:Higher values can be expected in females during menses. Performed By: #### L AB15, [id number] ####Online Banking Specialist: SOL ZENG ([phone])[facility] ([facility])[address] [place] [address] Magnesium [Mass/Vol]on 05-11 Interpretation and review of laboratory results Normal [facility] Higher values can be expected in females during menses. [facility] [facility] No Panel Informationon 05-11 Interpretation and review of laboratory results Normal [facility] Nursing Noteon 05-11-2025 Nursing Note Patient discharged h ome with instructions, verbalized understanding and transported to exit by staff in . Normal [facility] Progress Noteon 05-11-2025 Progress Note Normal [facility] Progress Note Nutrition rescreen completed. Patient referred to the Dietitian. Patient is NPO/CL > 3 days. NICKY Wong Normal [facility] Progress Note Normal [facility] [id number] 05-10-2025 [id number] [facility] 36on 05-10-2025 36 Currently admitted [facility] BASIC METABOLIC PANELon 08-0 Anion gap [Moles/Vol] 9 mmol/L Normal 3-13 [facility] Comment on above: Performed By: #### L [id number], [id number] ####Online Banking Specialist: SOL ZENG ([phone])[facility] ([facility])[address] [place] [address] Calcium [Mass/Vol] 8.2 mg/dL Low 8.4-10.2 [facility] Comment on above: Performed By: #### L AB15, [id number] ####Online Banking Specialist: SOL ZENG ([phone])[facility] ([facility])[address] [place] [address] [place] Chloride [Moles/Vol] 109 mmol/L High 98-107 [facility] Comment on above: Performed By: #### L AB15, [id number] ####Online Banking Specialist: SOL ZENG ([phone])[facility] ([facility])[address] [place] [address] CO2 [Moles/Vol] 19 mmol/L Low 22-29 [facility] Comment on above: Performed By: #### L AB15, [id number] ####Online Banking Specialist: SOL ZENG ([phone])[facility] ([facility])[address] [place] [address] Creatinine [Mass/Vol] 0.58 mg/dL Normal 0.57-1.11 [facility] Comment on above: Performed By: #### L AB15, [id number] ####Online Banking Specialist: SOL ZENG ([phone])[facility] ([facility])[address] [place] [address] GLOMERULAR FILTRATION RATE ML/MIN/1.73 SQ M.PREDICTED >90.0 Normal >60.0 [facility] Comment on above: Result Comment: Calc ulation based on the Chronic Kidney Disease Epidemiology Collaboration (CKD-EPI) equation refit without adjustment for race Performed By: #### L AB15, [id number] ####Online Banking Specialist: SOL ZENG ([phone])[facility] ([facility])[address] [place] [address] [place] Glucose [Mass/Vol] 108 mg/dL High 74-100 [facility] Comment on above: Performed By: #### L AB15, [id number] ####Online Banking Specialist: SOL ZENG ([phone])[facility])[address] [place] [address] Potassium [Moles/Vol] 3.7 mmol/L Normal 3.5-5.1 [facility] Comment on above: Result Comment: [facility] potassium values may be up to 0.5 mmol/L lower than serum values. Performed By: #### L AB15, [id number] ####Online Banking Specialist: SOL ZENG ([phone])[facility] ([facility])[address] [place] [address] Sodium [Moles/Vol] 137 mmol/L Normal 136-145 [facility] Comment on above: Performed By: #### L AB15, [id number] ####Online Banking Specialist: SOL ZENG ([phone])[facility] ([facility])[address] [place] [address] Urea nitrogen [Mass/Vol] 8 mg/dL Normal 8-21 [facility] Comment on above: Performed By: #### L AB15, [id number] ####Online Banking Specialist: SOL ZENG ([phone])[facility])[address] [place] [address] Basic metabolic 1998 panelon 05-10-2025 Anion gap [Moles/Vol] 9 mmol/L 3 - 13 mmol/L [facility] Calcium [Mass/Vol] 8.2 mg/dL Low 8.4 - 10. 2 mg/dL [facility] Chloride [Moles/Vol] 109 mmol/L High 98 - 10 7 mmol/L [facility] CO2 [Moles/Vol] 19 mmol/L Low 22 - 29 mmol/L [facility] Creatinine [Mass/Vol] 0.58 mg/dL 0.57 - 1.11 mg/dL [facility] GFR/1.73 sq M.predicted (S/P/Bld) [Vol rate/Area] - PINF [facility] Comment on above: Calculation based on the Chronic Kidney Disease Epidemiology Collaboration (CKD-EPI) equation refit without adjustment for race Glucose [Mass/Vol] 108 mg/dL High 74 - 100 mg/dL [facility] Interpretation and review of laboratory results Abnormal [facility] Potassium [Moles/Vol] 3.7 mmol/L 3.5 - 5.1 mmol/L [facility] Comment on above: Plasma potassium kelsy ues may be up to 0.5 mmol/L lower than serum values. Sodium [Moles/Vol] 137 mmol/L 136 - 145 mmol/L [facility] Urea nitrogen [Mass/Vol] 8 mg/dL 8 - 21 mg/dL [facility] CBC (HEMOGRAM)on 05-10-2025 Erythrocyte distribution width (RBC) [Ratio] 12.3 % Normal 11.5-15.0 [facility] Comment on above: Performed By: #### L [id number] ####Online Banking Specialist: SOL ZENG ([phone])[address] Hematocrit (Bld) [Volume fraction] 33.1 % Low 35.0-47.0 [facility] Comment on above: Performed By: #### L [id number] ####Online Banking Specialist: SOL ZENG ([phone])[address] Hemoglobin (Bld) [Mass/Vol] 10.9 g/dL Low 11.7-16.0 [facility] Comment on above: Performed By: #### L [id number] ####Online Banking Specialist: SOL ZENG ([phone])[facility])[address] [place] [address] MCH (RBC) [Entitic mass] 30.8 pg Normal 26.0-34.0 [facility] Comment on above: Performed By: #### L [id number] ####Online Banking Specialist: SOL ZENG ([phone])[address] MCHC 32.9 % Normal 30.5-36.0 [facility] Comment on above: Performed By: #### L [id number] ####Online Banking Specialist: SOL ZENG ([phone])[facility] ([facility])[address] [place] [address] MCV (RBC) [Entitic vol] 93.5 fL Normal 77.0-99.0 [facility] Comment on above: Performed By: #### L [id number] ####Online Banking Specialist: SOL ZENG ([phone])[facility])[address] [place] [address] Platelet mean volume (Bld) [Entitic vol] 9.1 fL Normal 9.0-12.7 [facility] Comment on above: Performed By: #### L [id number] ####Online Banking Specialist: SOL ZENG ([phone])[facility])[address] [place] [address] Platelets (Bld) [#/Vol] 228 10*3/uL Normal 140-440 [facility] Comment on above: Performed By: #### L [id number] ####Online Banking Specialist: SOL ZENG ([phone])[facility])[address] [place] [address] RBC (Bld) [#/Vol] 3.54 10*6/uL Low 3.80-5.20 [facility] Comment on above: Performed By: #### L [id number] ####Online Banking Specialist: SOL ZENG ([phone])[facility])[address] [place] [address] WBC (Bld) [#/Vol] 8.0 10*3/uL Normal 3.6-10.7 [facility] Comment on above: Performed By: #### L [id number] ####Online Banking Specialist: SOL ZENG ([phone])[facility])[address] [place] [address] CBC panel Auto (Bld)Ordered By: Tom Cespedes on 05-10-2025 Erythrocyte distribution width (RBC) [Ratio] 12.3 % 11.5 - 15.0 % [facility] Hematocrit (Bld) [Volume fraction] 33.1 % Low 35.0 - 47.0 % [facility] Hemoglobin (Bld) [Mass/Vol] 10.9 g/dL Low 11.7 - 16.0 g/dL [facility] Interpretation and review of laboratory results Abnormal [facility] MCH (RBC) [Entitic mass] 30.8 pg 26.0 - 34.0 pg [facility] MCHC (RBC) [Mass/Vol] 32.9 % 30.5 - 36.0 % [facility] MCV (RBC) [Entitic vol] 93.5 fL 77.0 - 99.0 fL [facility] Platelet mean volume (Bld) [Entitic vol] 9.1 fL 9.0 - 12.7 fL [facility] Platelets (Bld) [#/Vol] 228 10*3/uL 140 - 440 10*3/uL [facility] RBC (Bld) [#/Vol] 3.54 10*6/uL Low 3.80 - 5.20 10*6/uL [facility] WBC (Bld) [#/Vol] 8 10*3/uL 3.6 - 10.7 10*3/uL [facility] Health Consulton 05-10-2025 Consult Normal [facility] Consult Normal [facility] LACTIC ACID WITH REFLEXon Lactate [Moles/Vol] 1.4 mmol/L Normal 0.5-2.2 [facility] Comment on above: Performed By: #### L [id number] ####Online Banking Specialist: SOL ZENG ([phone])[address] Laboratory - Chemistry and C hemistry - challengeon 05-10-2025 Magnesium [Mass/Vol] 1.8 mg/dL 1.6 - 2 .6 mg/dL [facility] Lactate [Moles/Vol] 1.4 mmol/L 0.5 - 2. 2 mmol/L [facility] Lactate [Moles/Vol] 3.5 mmol/L High 0.5 - 2. 2 mmol/L [facility] Laboratory - Drug toxicology Ordered By: Bernice Regan on 05-10-2025 Amphetamines Ql (U) Negative Negative [facility] Barbiturates screen method Nom (U) Negative Negative [facility] Benzodiazepines screen method Nom (U) Negative Negative [facility] Cocaine Ql (U) Negative Negative [facility] Ethanol [Mass/Vol] Negative Negative [facility] Methadone Ql (U) Negative Negative [facility] Opiates Screen Ql (U) Negative Negative [facility] MAGNESIUMon 05-10-2025 Magnesium [Mass/Vol] 1.8 mg/dL Normal 1.6-2.6 [facility] Comment on above: Result Comment: VERA Dickey COMMENTS:Higher values can be expected in females during menses. Performed By: #### L AB15, [id number] ####Online Banking Specialist: SOL ZENG ([phone])[facility] ([facility])[address] [place] [address] Magnesium [Mass/Vol]on 05-10 Interpretation and review of laboratory results Normal [facility] Higher values can be expected in females during menses. [facility] No Panel InformationOrdered By: Bernice Regan on 05-10-2025 BUPRENORPHINE SCREEN Negative Negative [facility] FENTANYL Negative Negative [facility] Interpretation and review of laboratory results Abnormal [facility] OXYCODONE/OXYMORPHONE Negative Negative [facility] PCP Negative Negative [facility] THC Positive Abnormal Negative [facility] The expected value f or the drugs listed above is Negative. The following drugs or drug groups have been screened for by Immunoassay at the following thresholds: Amphetamine class(1000ng/mL) Barbituates(200ng/mL) Benzodiazepines(200ng/mL) Cocaine(300ng/mL) Ethanol (50 ng/mL) Methadone(300ng/mL) Opiates(300ng/mL) Oxycodone(100ng/mL) PCP(25ng/mL) Buprenorphine(5ng/mL) THC(50ng/mL) Fentanyl(1ng/mL) Positive results are NOT confirmed by a more specific alternative method unless requested. If confirmation is needed, request confirmation under separate order. NOTE: These results are for medical treatment only. Analysis performed using non-forensic procedures. [facility] No Panel Informationon 05-10 Interpretation and review of laboratory results Normal [facility] Interpretation and review of laboratory results Abnormal [facility] Progress Noteon 05-10-2025 Progress Note Normal [facility] Progress Note Normal [facility] RF Small bowel Views W contr ast Sarath 05-10-2025 Mildly dilated loops of proximal bowel, significance uncertain. Transit time to colon 2.5 hours. Recommend follow-up.. Report Dictated on Electronically Signed By: Regis Chakraborty MD Electronically Signed Date/Time: 05/10/2025 2:02 PM EDT [facility] 1985 [id number] Exam Date/Time: 05/10/2025 08:12 Procedure: FL SMALL BOWEL SERIES Ordering Provider: YEN THOMAS Reason For Exam: r/o SBO/intusseception GASTROGRAFIN SMALL BOWEL SERIES History: Small bowel obstruction, intussusception. Comparison: CT abdomen/pelvis 05/09/2025. Technique: Gastrografin was instilled orally, sequential films of the abdomen were obtained. Fluoroscopy time: Fluoroscopy was not utilized during the study. Images: 10 Findings: The preliminary film demonstrates a nonspecific bowel gas pattern.The stomach and duodenal bulb are not adequately seen for proper evaluation. Evaluation of bowel mucosa is limited due to the use of Gastrografin. There is prompt flow of contrast in the jejunum and ileal loops. Mildly dilated loops of proximal small bowel are noted. Contrast reached the colon in 2.5 hours. [facility] Regis Chakraborty MD - 05/10/2025 Patient Name: MEL WALL : 1985 Exam Date/Time: 05/10/2025 08:12 Procedure: FL SMALL BOWEL SERIES Ordering Provider: YEN THOMAS Reason For Exam: r/o SBO/intusseception GASTROGRAFIN SMALL BOWEL SERIES History: Small bowel obstruction, intussusception. Comparison: CT abdomen/pelvis 05/09/2025. Technique: Gastrografin was instilled orally, sequential films of the abdomen were obtained. Fluoroscopy time: Fluoroscopy was not utilized during the study. Images: 10 Findings: The preliminary film demonstrates a nonspecific bowel gas pattern.The stomach and duodenal bulb are not adequately seen for proper evaluation. Evaluation of bowel mucosa is limited due to the use of Gastrografin. There is prompt flow of contrast in the jejunum and ileal loops. Mildly dilated loops of proximal small bowel are noted. Contrast reached the colon in 2.5 hours. IMPRESSION: Mildly dilated loops of proximal bowel, significance uncertain. Transit time to colon 2.5 hours. Recommend follow-up.. Report Dictated on Electronically Signed By: Regis Chakraborty MD Electronically Signed Date/Time: 05/10/2025 2:02 PM EDT [facility] [employer] Radiology Study observation (narrative) [employer] RF Small bowel Views W contr ast POOrdered By: Regis Chakraborty on 05-10-2025 [employer] Work Phone: CBC W Auto Differential pane l (Bld)on 05-09-2025 Basophils (Bld) [#/Vol] 0 10*3/uL 0.0 - 0.2 10*3/uL [employer] Basophils/100 WBC (Bld) 0.5 % 0.0 - 2.0 % [facility] [employer] Eosinophils (Bld) [#/Vol] 0.2 10*3/uL 0.0 - 0.5 10*3/uL [employer] Eosinophils/100 WBC (Bld) 2.1 % 0.0 - 6.0 % [employer] Erythrocyte distribution width (RBC) [Ratio] 12.3 % 11.5 - 15.0 % [employer] Hematocrit (Bld) [Volume fraction] 38.4 % 35.0 - 47.0 % [facility] [employer] Hemoglobin (Bld) [Mass/Vol] 13 g/dL 11.7 - 16.0 g/dL [facility] [employer] Immature granulocytes (Bld) [#/Vol] 0 10*3/uL NINF - 0.1 10*3/uL [employer] Immature granulocytes/100 WBC (Bld) 0.3 % 0.0 - 2.0 % [facility] [employer] Interpretation and review of laboratory results Normal [facility] [employer] Lymphocytes (Bld) [#/Vol] 2.6 10*3/uL 1.0 - 4.3 10*3/uL [employer] Lymphocytes/100 WBC (Bld) 29.5 % 15.0 - 45.0 % [facility] [employer] MCH (RBC) [Entitic mass] 31.5 pg 26.0 - 34.0 pg [facility] [employer] MCHC (RBC) [Mass/Vol] 33.9 % 30.5 - 36.0 % [facility] MCV (RBC) [Entitic vol] 93 fL 77.0 - 99.0 fL [facility] Monocytes (Bld) [#/Vol] 0.5 10*3/uL 0.0 - 0.9 10*3/uL [facility] Monocytes/100 WBC (Bld) 5.9 % 5.0 - 13.0 % [facility] Neutrophils (Bld) [#/Vol] 5.5 10*3/uL 1.8 - 7.5 10*3/uL [facility] Neutrophils/100 WBC (Bld) 61.7 % 38.0 - 82.0 % [facility] Nucleated RBC/100 WBC (Bld) [Ratio] 0 % [facility] Platelet mean volume (Bld) [Entitic vol] 10 fL 9.0 - 12.7 fL [facility] Comment on above: MPV is a calculated measurement using platelet volume ratio Platelets (Bld) [#/Vol] 222 10*3/uL 140 - 440 10*3/uL [facility] RBC (Bld) [#/Vol] 4.13 10*6/uL 3.80 - 5.20 10*6/uL [facility] WBC (Bld) [#/Vol] 8.9 10*3/uL 3.6 - 10.7 10*3/uL [facility] CBC WITH AUTO DIFFERENTIALon 05-09-2025 Basophils (Bld) [#/Vol] 0.0 10*3/uL Normal 0.0-0.2 [facility] Comment on above: Performed By: #### L [id number] ####Online Banking Specialist: TRACY PERDOMO ([phone])[facility]agoUNC MEDICAL CENTERBOATHOUSE R[facility] SPORTSS ([facility])[address] [place] [address] [facility] Basophils/100 WBC (Bld) 0.5 % Normal 0.0-2.0 [facility] Comment on above: Performed By: #### L [id number] ####Online Banking Specialist: TRACY PERDOMO ([phone])[facility] [place] ([facility])[address] [place] [address] [place] Eosinophils (Bld) [#/Vol] 0.2 10*3/uL Normal 0.0-0.5 [facility] Comment on above: Performed By: #### L [id number] ####Online Banking Specialist: TRACY PERDOMO ([phone])[facility] [employer] [place] ([facility])[address] Eosinophils/100 WBC (Bld) 2.1 % Normal 0.0-6.0 [facility] Comment on above: Performed By: #### L [id number] ####Online Banking Specialist: TRACY PERDOMO ([phone])[facility] [place] ([facility])[address] [place] [address] Erythrocyte distribution width (RBC) [Ratio] 12.3 % Normal 11.5-15.0 [facility] Comment on above: Performed By: #### L [id number] ####Online Banking Specialist: TRACY PERDOMO ([phone])[facility] LiftagoUNC MEDICAL CENTEROrgan[facility] Water [place] ([facility])[address] [place] [address] Hematocrit (Bld) [Volume fraction] 38.4 % Normal 35.0-47.0 [facility] Comment on above: Performed By: #### L [id number] ####Online Banking Specialist: TRACY PERDOMO ([phone])[facility]ITAL[facility] ([facility])[address] [place] [address] Hemoglobin (Bld) [Mass/Vol] 13.0 g/dL Normal 11.7-16.0 [facility] Comment on above: Performed By: #### L [id number] ####Online Banking Specialist: TRACY PERDOMO ([phone])[facility] [employer] [place] ([facility])[address] [place] [address] IMMATURE GRANS % 0.3 % Normal 0.0-2.0 [facility] Comment on above: Performed By: #### L [id number] ####Online Banking Specialist: TRACY PERDOMO ([phone])[facility] [place] ([facility])[address] [place] [address] [facility] IMMATURE GRANS ABSOLUTE 0.0 10*3/uL Normal <0.1 [facility] Comment on above: Performed By: #### L [id number] ####Online Banking Specialist: TRACY VEEMARIELENA ([phone])[facility] [place] ([facility])[address] Lymphocytes (Bld) [#/Vol] 2.6 10*3/uL Normal 1.0-4.3 [facility] Comment on above: Performed By: #### L [id number] ####Online Banking Specialist: TRACY VEEMARIELENA ([phone])[facility] [place] ([facility])[address] Lymphocytes/100 WBC (Bld) 29.5 % Normal 15.0-45.0 [facility] Comment on above: Performed By: #### L [id number] ####Online Banking Specialist: TRACY PERDOMO ([phone])[facility] [place] ([facility])[address] MCH (RBC) [Entitic mass] 31.5 pg Normal 26.0-34.0 [facility] Comment on above: Performed By: #### L [id number] ####Online Banking Specialist: TRACY VEEMARIELENA ([phone])[facility] [place] ([facility])[address] [place] [id number] MCHC 33.9 % Normal 30.5-36.0 [facility] Comment on above: Performed By: #### L [id number] ####Online Banking Specialist: TRACY VEEMARIELENA ([phone])[facility] [place] ([facility])[address] [place] [id number] [facility] MCV (RBC) [Entitic vol] 93.0 fL Normal 77.0-99.0 [facility] Comment on above: Performed By: #### L [id number] ####Online Banking Specialist: TRACY VEEMARIELENA ([phone])[facility] [place] [facility])[address] [place] [address] [place] Monocytes (Bld) [#/Vol] 0.5 10*3/uL Normal 0.0-0.9 [facility] Comment on above: Performed By: #### L [id number] ####Online Banking Specialist: TRACY PERDOMO ([phone])[facility] [place])[address] [place] [address] [place] Monocytes/100 WBC (Bld) 5.9 % Normal 5.0-13.0 [facility] Comment on above: Performed By: #### L [id number] ####Online Banking Specialist: TRACY VEEMARIELENA ([phone])[facility])[address] [place] [id number] [place] NEUTROPHILS ABSOLUTE 5.5 10*3/uL Normal 1.8-7.5 [facility] Comment on above: Performed By: #### L [id number] ####Online Banking Specialist: TRACY PERDOMO ([phone])[facility])[address] [place] [address] [place] Neutrophils/100 WBC (Bld) 61.7 % Normal 38.0-82.0 [facility] Comment on above: Performed By: #### L [id number] ####Online Banking Specialist: TRACY VEEMARIELENA ([phone])[facility])[address] [place] [address] [place] NRBC 0.0 /100 WBCs Normal 0.0-2.0 [facility] Comment on above: Performed By: #### L [id number] ####Online Banking Specialist: TRACY PERDOMO ([phone])[facility])[address] [place] [address] [place] Platelet mean volume (Bld) [Entitic vol] 10.0 fL Normal 9.0-12.7 [facility] Comment on above: Result Comment: MPV is a calculated measurement using platelet volume ratio Performed By: #### L [id number] ####Online Banking Specialist: TRACY PERDOMO ([phone])[facility]A [facility]ENTER[facility] [place] [facility])[address] Platelets (Bld) [#/Vol] 222 10*3/uL Normal 140-440 [facility] Comment on above: Performed By: #### L [id number] ####Online Banking Specialist: TRACY PERDOMO ([phone])[facility] [place] [facility])[address] RBC (Bld) [#/Vol] 4.13 10*6/uL Normal 3.80-5.20 [facility] Comment on above: Performed By: #### L [id number] ####Online Banking Specialist: TRACY PERDOMO ([phone])[facility]agoUNC MEDICAL [facility] ([facility])[address] [place] [address] WBC (Bld) [#/Vol] 8.9 10*3/uL Normal 3.6-10.7 [facility] Comment on above: Performed By: #### L [id number] ####Online Banking Specialist: TRACY PERDOMO ([phone])[facility] ([facility])[address] [place] [address] COMPLETE URINALYSIS WITH REF TOM TO CULTURE 05-09-2025 BILIRUBIN, TOTAL PRESENCE IN URINE Negative Normal Negative [facility] Comment on above: Performed By: #### L [id number] ####Online Banking Specialist: TRACY PERDOMO ([phone])[facility])[address] Clarity (U) Clear Normal Clear [facility] Comment on above: Performed By: #### L [id number] ####Online Banking Specialist: TRACY PERDOMO ([phone])[facility] ([facility])[address] [address] [facility] Color (U) Colorless Normal Lt. Yellow [facility] Comment on above: Performed By: #### L [id number] ####Online Banking Specialist: TRACY PERDOMO ([phone])[facility] ([facility])[address] [address] [facility] GLUCOSE (MG/DL) IN URINE Normal Normal Normal (<70) [facility] Comment on above: Performed By: #### L [id number] ####Online Banking Specialist: TRACY PERDOMO ([phone])[facility] ([facility])[address] [address] [facility] HEMOGLOBIN PRESENCE IN URINE Negative Normal Negative [facility] Comment on above: Performed By: #### L [id number] ####Online Banking Specialist: TRACY PERDOMO ([phone])[facility] ([facility])[address] [address] [facility] Ketones Ql (U) Negative Normal Negative [facility] Comment on above: Performed By: #### L [id number] ####Online Banking Specialist: TRACY PERDOMO ([phone])[facility] ([facility])[address] [address] [facility] LEUKOCYTE ESTERASE PRESENCE IN URINE BY TEST STRIP Negative Normal Negative [facility] Comment on above: Performed By: #### L [id number] ####Online Banking Specialist: TRACY PERDOMO ([phone])[facility] ([facility])[address] [address] [place] NITRITE PRESENCE IN URINE Negative Normal Negative [facility] Comment on above: Performed By: #### L [id number] ####Online Banking Specialist: TRACY PERDOMO ([phone])[facility] ([facility])[address] pH (U) 6.5 [pH] Normal 5.0-8.0 [facility] Comment on above: Performed By: #### L [id number] ####Online Banking Specialist: TRACY PERDOMO ([phone])[facility] ([facility])[address] Protein (U) [Mass/Vol] Negative Normal Negative [facility] Comment on above: Performed By: #### L [id number] ####Online Banking Specialist: TRACY PERDOMO ([phone])[facility] ([facility])[address] Specific gravity (U) [Rel density] 1.006 Normal 1.005-1.03 0 [facility] Comment on above: Result Comment: VERA Dickey COMMENTS:A specimen with <=10 WBC is not consistent with inflammation. This specimen will not reflex to a urine culture. Performed By: #### L [id number] ####Online Banking Specialist: TRACY PERDOMO ([phone])[facility] ([facility])[address] UROBILINOGEN (MG/DL) IN URINE Normal Normal Normal (0-1) [facility] Comment on above: Performed By: #### L [id number] ####Online Banking Specialist: TRACY PERDOMO ([phone])[facility] ([facility])[address] COMPREHENSIVE METABOLIC PANE Randy 05-09-2025 Albumin [Mass/Vol] 4.2 g/dL Normal 3.5-5.0 [facility] Comment on above: Performed By: #### L [id number] ####Online Banking Specialist: TRACY PERDOMO ([phone])[facility] ([facility])[address] [place] [address] [place] ALP [Catalytic activity/Vol] 41 U/L Normal 40-150 [facility] Comment on above: Performed By: #### L [id number] ####Online Banking Specialist: TRACY PERDOMO ([phone])[facility] CROSSINGS ([facility])[address] [place] [address] [facility] ALT [Catalytic activity/Vol] 11 U/L Normal <30 [facility] Comment on above: Performed By: #### L [id number] ####Online Banking Specialist: TRACY PERDOMO ([phone])[facility] CROSSINGS ([facility])[address] [place] [address] [facility] Anion gap [Moles/Vol] 13 mmol/L Normal 3-13 [facility] Comment on above: Performed By: #### L [id number] ####Online Banking Specialist: TRACY PERDOMO ([phone])[facility] CROSSINGS ([facility])[address] [place] [address] [place] AST [Catalytic activity/Vol] 14 U/L Normal <34 [facility] Comment on above: Performed By: #### L [id number] ####Online Banking Specialist: TRACY PERDOMO ([phone])[facility] CROSS[facility] ([facility])[address] [place] [address] [facility] Bilirubin [Mass/Vol] 0.2 mg/dL Normal <1.2 [facility] Comment on above: Performed By: #### L [id number] ####Online Banking Specialist: TRACY PERDOMO ([phone])[facility] CROSS[facility] ([facility])[address] [place] [address] [place] Calcium [Mass/Vol] 9.1 mg/dL Normal 8.4-10.2 [facility] Comment on above: Performed By: #### L [id number] ####Online Banking Specialist: TRACY PERDOMO ([phone])[facility] CROSSINGS ([facility])[address] [place] [address] [place] Chloride [Moles/Vol] 107 mmol/L Normal 98-107 [facility] Comment on above: Performed By: #### L [id number] ####Online Banking Specialist: TRACY BUSTAMANTECER ([phone])[facility] ([facility])[address] CO2 [Moles/Vol] 20 mmol/L Low 22-29 [facility] Comment on above: Performed By: #### L [id number] ####Online Banking Specialist: TRACY PERDOMO ([phone])[facility] ([facility])[address] [address] [facility] Creatinine [Mass/Vol] 0.65 mg/dL Normal 0.57-1.11 [facility] Comment on above: Performed By: #### L [id number] ####Online Banking Specialist: TRACY VEEMARIELENA ([phone])[facility] ([facility])[address] GLOMERULAR FILTRATION RATE ML/MIN/1.73 SQ M.PREDICTED >90.0 Normal >60.0 [facility] Comment on above: Result Comment: Calc ulation based on the Chronic Kidney Disease Epidemiology Collaboration (CKD-EPI) equation refit without adjustment for race Performed By: #### L [id number] ####Online Banking Specialist: TRACY PERDOMO ([phone])[facility] ([facility])[address] Glucose [Mass/Vol] 106 mg/dL High 74-100 [facility] Comment on above: Performed By: #### L [id number] ####Online Banking Specialist: TRACY PERDOMO ([phone])[facility] ([facility])[address] [address] [facility] Potassium [Moles/Vol] 3.3 mmol/L Low 3.5-5.1 [facility] Comment on above: Result Comment: [facility] potassium values may be up to 0.5 mmol/L lower than serum values. Performed By: #### L [id number] ####Online Banking Specialist: TRACY PERDOMO ([phone])[facility] CROSSINGS ([facility])[address] Protein [Mass/Vol] 7.3 g/dL Normal 6.4-8.3 [facility] Comment on above: Performed By: #### L [id number] ####Online Banking Specialist: TRACYERICK PERDOMO ([phone])[facility] ([facility])[address] Sodium [Moles/Vol] 140 mmol/L Normal 136-145 [facility] Comment on above: Performed By: #### L [id number] ####Online Banking Specialist: TRACYERICK PERDOMO ([phone])[facility] CROSSINGS ([facility])[address] Urea nitrogen [Mass/Vol] 10 mg/dL Normal 8-21 [facility] Comment on above: Performed By: #### L [id number] ####Online Banking Specialist: TRACYERICK PERDOMO ([phone])[facility] ([facility])[address] ABDOMEN PELVIS W CONTRAST on 05-09-2025 CT ABDOMEN PELVIS W CONTRAST Normal [facility] CT Abdomen and Pelvis W cont rast Oscar 05-09-2025 1. There is a postsurgical small bowel anastomosis at the midline (previous location left abdomen on 04/29/2025), with eccentric circumferential wall thickening which could represent partial intussusception versus mass and/or inflammation. If pain persists, consider follow-up imaging with GI contrast and/or GI consultation. 2. Ventral hernia repair changes with multiple ventral fatty hernias. 3. Nonobstructive right renal calculus. No hydronephrosis. 4. Additional findings, as above. Report Dictated on Electronically Signed By: Michelle Velazquez MD Electronically Signed Date/Time: 05/09/2025 7:16 PM [facility] Patient Name: MEL WALL : 1985 [facility]#: [id number] Exam Date/Time: 05/09/2025 18:43 Procedure: CT ABDOMEN PELVIS W CONTRAST Ordering Provider: PARSONS KAITLYN Reason For Exam: concern for pop inthe abdomen per pt where she had a hernia and mesh repair CT ABDOMEN AND PELVIS Indication: Hernia repair performed July 2024. Patient felt a pop in abdomen and now has severe pain with vomiting. Appendectomy. Cholecystectomy. Multiple hernia repairs. Tubal ligation. Scan Parameters: Multiple axial CT images were obtained of the abdomen and pelvis. Coronal and sagittal reconstructions were reviewed as well. ALARA protocol. Dose reduction was employed with automated exposure control. Contrast: 75 mL of Isovue-370 IV contrast; no GI contrast Comparison: CT abdomen and pelvis 04/29/2025 FINDINGS: The lung bases are clear. The heart is not enlarged. There are no atherosclerotic calcifications along the aorta or branches. There is a stable 1.3 cm sclerotic focus in T9, unchanged from 09/13/2023. The gallbladder is absent. Mild intrahepatic and extrahepatic biliary duct distention likely sequela from cholecystectomy. The liver, pancreas, spleen, and adrenal glands are within normal limits. There is mild nodularity of the adrenal glands, unchanged. There is no hydronephrosis. Punctate right renal calculi are present. Bilateral renal cysts appear similar to prior exam, no follow-up required. The bladder contour is normal, no bladder wall thickening. The uterus is anteverted and approximates the ventral abdominal wall. Bilateral tubal ligation clips noted. Limited evaluation of the ovaries with follicular cystic changes. The appendix is not visualized, no CT evidence for appendicitis. There is a small sliding-type hiatal hernia. There is a postsurgical small bowel anastomosis at the midline (previous location left abdomen on 04/29/2025), with eccentric circumferential wall thickening which could represent partial intussusception versus mass and/or inflammation. There is no free air and no free fluid. Ventral hernia repair changes. There is diastases of the abdominal rectus muscle at the midline with a small fatty ventral hernias. There is no adenopathy. [facility] Michelle Velazquez MD - 05/09/2025 Patient Name: MEL WALL : 1985 [facility]#: [id number] Exam Date/Time: 05/09/2025 18:43 Procedure: CT ABDOMEN PELVIS W CONTRAST Ordering Provider: PARSONS KAITLYN Reason For Exam: concern for pop inthe abdomen per pt where she had a hernia and mesh repair CT ABDOMEN AND PELVIS Indication: Hernia repair performed July 2024. Patient felt a pop in abdomen and now has severe pain with vomiting. Appendectomy. Cholecystectomy. Multiple hernia repairs. Tubal ligation. Scan Parameters: Multiple axial CT images were obtained of the abdomen and pelvis. Coronal and sagittal reconstructions were reviewed as well. ALARA protocol. Dose reduction was employed with automated exposure control. Contrast: 75 mL of Isovue-370 IV contrast; no GI contrast Comparison: CT abdomen and pelvis 04/29/2025 FINDINGS: The lung bases are clear. The heart is not enlarged. There are no atherosclerotic calcifications along the aorta or branches. There is a stable 1.3 cm sclerotic focus in T9, unchanged from 09/13/2023. The gallbladder is absent. Mild intrahepatic and extrahepatic biliary duct distention likely sequela from cholecystectomy. The liver, pancreas, spleen, and adrenal glands are within normal limits. There is mild nodularity of the adrenal glands, unchanged. There is no hydronephrosis. Punctate right renal calculi are present. Bilateral renal cysts appear similar to prior exam, no follow-up required. The bladder contour is normal, no bladder wall thickening. The uterus is anteverted and approximates the ventral abdominal wall. Bilateral tubal ligation clips noted. Limited evaluation of the ovaries with follicular cystic changes. The appendix is not visualized, no CT evidence for appendicitis. There is a small sliding-type hiatal hernia. There is a postsurgical small bowel anastomosis at the midline (previous location left abdomen on 04/29/2025), with eccentric circumferential wall thickening which could represent partial intussusception versus mass and/or inflammation. There is no free air and no free fluid. Ventral hernia repair changes. There is diastases of the abdominal rectus muscle at the midline with a small fatty ventral hernias. There is no adenopathy. IMPRESSION: 1. There is a postsurgical small bowel anastomosis at the midline (previous location left abdomen on 04/29/2025), with eccentric circumferential wall thickening which could represent partial intussusception versus mass and/or inflammation. If pain persists, consider follow-up imaging with GI contrast and/or GI consultation. 2. Ventral hernia repair changes with multiple ventral fatty hernias. 3. Nonobstructive right renal calculus. No hydronephrosis. 4. Additional findings, as above. Report Dictated on Electronically Signed By: Michelle Velazquez MD Electronically Signed Date/Time: 05/09/2025 7:16 PM EDT [facility] Radiology Study observation (narrative) [facility] CT Abdomen and Pelvis W cont rast IVOrdered By: Michelle Velazquez on 05-09-2025 [facility] [employer] Work Phone: Comprehensive metabolic 1998 panelon 05-09-2025 Albumin [Mass/Vol] 4.2 g/dL 3.5 - 5.0 g/dL [facility] ALP [Catalytic activity/Vol] 41 U/L 40 - 150 U/L [facility] ALT [Catalytic activity/Vol] 11 U/L NINF - 30 U/L [facility] Anion gap [Moles/Vol] 13 mmol/L 3 - 13 mmol/L [facility] AST [Catalytic activity/Vol] 14 [facility] Bilirubin [Mass/Vol] 0.2 mg/dL [facility] mg/dL [facility] Calcium [Mass/Vol] 9.1 mg/dL 8.4 - 10. 2 mg/dL [facility] Chloride [Moles/Vol] 107 mmol/L 98 - 10 7 mmol/L [facility] CO2 [Moles/Vol] 20 mmol/L Low 22 - 29 mmol/L [facility] Creatinine [Mass/Vol] 0.65 mg/dL 0.57 - 1.11 mg/dL [facility] GFR/1.73 sq M.predicted (S/P/Bld) [Vol rate/Area] - PINF [facility] Comment on above: Calculation based on the Chronic Kidney Disease Epidemiology Collaboration (CKD-EPI) equation refit without adjustment for race Glucose [Mass/Vol] 106 mg/dL High 74 - 100 mg/dL [facility] Interpretation and review of laboratory results Abnormal [facility] Potassium [Moles/Vol] 3.3 mmol/L Low 3.5 - 5.1 mmol/L [facility] Comment on above: Plasma potassium kelsy ues may be up to 0.5 mmol/L lower than serum values. Protein [Mass/Vol] 7.3 g/dL 6.4 - 8.3 g/dL [facility] Sodium [Moles/Vol] 140 mmol/L 136 - 145 mmol/L [facility] Urea nitrogen [Mass/Vol] 10 mg/dL 8 - 21 mg/dL [facility] ED Nursing Noteon 05-09-2025 ED Nursing Note Pt report given to Tru farnsworth at 4N , no questions or concerns after report at this time , pt traveling POV , pt stable on departure , IV intact Normal [facility] ED Provider Noteon ED Provider Note Normal [facility] HCG QUALITATIVE URINEon 04-11 Beta HCG ( test) Ql (U) Negative Normal Negative [facility] Comment on above: Result Comment: Plea se note: Very dilute urine specimens, as indicated by a low specific gravity, may not contain loan representative levels of hCG. If is still suspected, a first morning urine specimen should be collected 48 hours later and tested.ORDER COMMENTS: is the most common reason for HCG in urine, although choriocarcinoma, hydatidiform mole, and certain nontrophoblastic malignancies also result in detectable urinary HCG levels. Sensitivity = 20mIU/mL. Performed By: #### L [id number] ####Online Banking Specialist: TRACY PERDOMO ([phone])[facility] ([facility])[address] [place] [address] [place] LACTIC ACID WITH REFLEXon Lactate [Moles/Vol] 3.5 mmol/L High 0.5-2.2 [facility] Comment on above: Performed By: #### L [id number] ####Online Banking Specialist: SOL ZENG ([phone])[facility] ([facility])[address] [place] [address] Lactate [Moles/Vol] 3.0 mmol/L High 0.5-2.2 [facility] Comment on above: Performed By: #### L [id number] ####Online Banking Specialist: TRACY PERDOMO ([phone])[facility] ([facility])[address] Laboratory - Chemistry and C hemistry - challengeon 05-09-2025 Lactate [Moles/Vol] 3 mmol/L High 0.5 - 2. 2 mmol/L [facility] Laboratory - Chemistry and C hemistry - challengeOrdered By: Faisal Pavon on 05-09-2025 Beta HCG ( test) Ql Negative Negative [facility] Comment on above: Please note: Very di lute urine specimens, as indicated by a low specific gravity, may not contain loan representative levels of hCG. If is still suspected, a first morning urine specimen should be collected 48 hours later and tested. Beta HCG ( test) Ql (U) is the most common reason for HCG in urine, although choriocarcinoma, hydatidiform mole, and certain nontrophoblastic malignancies also result in detectable urinary HCG levels. Sensitivity = 20mIU/mL. [facility] MEDICATION ASSISTED TREATMEN T PANELon 05-09-2025 Amphetamines Ql (U) Negative Normal Negative [facility] Comment on above: Performed By: #### L [id number] ####Online Banking Specialist: SOL ZENG ([phone])[facility])[address] [place] [address] BARBITURATES Negative Normal Negative [facility] Comment on above: Performed By: #### L [id number] ####Online Banking Specialist: SOL ZENG ([phone])[facility] ([facility])[address] [place] [address] Benzodiazepines Ql (U) Negative Normal Negative [facility] Comment on above: Performed By: #### L [id number] ####Online Banking Specialist: SOL ZENG ([phone])[facility])[address] [place] [address] BUPRENORPHINE SCREEN Negative Normal Negative [facility] Comment on above: Performed By: #### L [id number] ####Online Banking Specialist: SOL ZENG ([phone])[facility] ([facility])[address] [place] [address] Cocaine Ql (U) Negative Normal Negative [facility] Comment on above: Performed By: #### L [id number] ####Online Banking Specialist: SOL ZENG ([phone])[facility])[address] [place] [address] ETHANOL-ETOHO Negative Normal Negative [facility] Comment on above: Result Comment: ORDE R COMMENTS:The expected value for the drugs listed above is Negative.The following drugs or drug groups have been screened for by Immunoassay at the following thresholds:Amphetamine class(1000ng/mL)Barbituates(200ng/mL)Benzodiazepines(200ng/mL)Co kelvin(300ng/mL)Ethanol (50 ng/mL)Methadone(300ng/mL)Opiates(300ng/mL)Oxycodone(100ng/mL)PCP (25ng/mL)Buprenorphine(5ng/mL)THC(50ng/mL)Fentanyl(1ng/mL)Positi ve results are NOT confirmed by a more specific alternative method unless requested. If confirmation is needed, request confirmation under separate order.NOTE: These results are for medical treatment only. Analysis performed using non-forensic procedures. Performed By: #### L [id number] ####Online Banking Specialist: SOL ZENG ([phone])[address] FENTANYL Negative Normal Negative [facility] Comment on above: Performed By: #### L [id number] ####Online Banking Specialist: SOL ZENG ([phone])[address] Methadone Ql (U) Negative Normal Negative [facility] Comment on above: Performed By: #### L [id number] ####Online Banking Specialist: SOL ZENG ([phone])[address] Opiates Ql (U) Negative Normal Negative [facility] Comment on above: Performed By: #### L [id number] ####Online Banking Specialist: SOL ZENG ([phone])[place] [address] [place] OXYCODONE/OXYMORPHONE Negative Normal Negative [facility] Comment on above: Performed By: #### L [id number] ####Online Banking Specialist: SOL ZENG ([phone])[facility] ([facility])[address] [place] [address] PCP Negative Normal Negative [facility] Comment on above: Performed By: #### L [id number] ####Online Banking Specialist: SOL ZENG ([phone])[facility] ([facility])[address] [place] [address] THC-MTTHC Positive Abnormal Negative [facility] Comment on above: Performed By: #### L [id number] ####Online Banking Specialist: SOL ZENG ([phone])[facility] ([facility])[address] [place] [address] No Panel Informationon 05-09 Interpretation and review of laboratory results Abnormal [facility] No Panel InformationOrdered By: Faisal Pavon on 05-09-2025 [facility] Progress Noteon 05-09-2025 Progress Note Normal [facility] Urinalysis complete panel (U )on 05-09-2025 Bilirubin Ql (U) Negative Negative mg/dL [facility] Clarity (U) Clear Clear [facility] Color (U) Colorless Lt. Yellow [facility] Glucose Ql (U) Normal Normal (<70) mg/dL [facility] [facility] Ql (U) Negative Negative mg/dL [facility] Interpretation and review of laboratory results Normal [facility] Ketones (U) [Mass/Vol] Negative Negative mg/dL [facility] Leukocyte esterase Test strip Ql (U) Negative Negative Peace/uL [facility] Nitrite Ql (U) Negative Negative [facility] pH (U) 6.5 [pH] 5.0 - 8.0 pH [facility] Protein (U) [Mass/Vol] Negative Negative mg/dL [facility] Specific gravity (U) [Rel density] 1.006 1.005 - 1.030 [facility] Urobilinogen (U) [Mass/Vol] Normal Normal (0-1) mg/dL [facility] A specimen with <=10 WBC is not consistent with inflammation. This specimen will not reflex to a urine culture. [facility] 05-01-2025 36 Pt called back and t ook the may 31 date so I put her in. Normal [facility] 04-30-2025 36 Sent [employer] msg off [place] on 05/31 at 12:30 Normal [facility] 3604-29-2025 36 Called pt to schedul e OV, LVM Next available 05/29 or 05/31 Normal [facility] 36 Normal [facility] CBC WITH AUTO DIFFERENTIALon 04-29-2025 Basophils (Bld) [#/Vol] 0.0 10*3/uL Normal 0.0-0.2 [facility] Comment on above: Performed By: #### L [id number] ####Online Banking Specialist: TRACY PERDOMO ([phone])[facility] ([facility])[address] [place] [address] Basophils/100 WBC (Bld) 0.4 % Normal 0.0-2.0 [facility] Comment on above: Performed By: #### L [id number] ####Online Banking Specialist: TRACY PERDOMO ([phone])[facility] [employer] [facility] ([facility])[address] [place] [address] Eosinophils (Bld) [#/Vol] 0.2 10*3/uL Normal 0.0-0.5 [facility] Comment on above: Performed By: #### L [id number] ####Online Banking Specialist: TRACY PERDOMO ([phone])[facility] ([facility])[address] [place] [address] Eosinophils/100 WBC (Bld) 2.9 % Normal 0.0-6.0 [facility] Comment on above: Performed By: #### L [id number] ####Online Banking Specialist: TRACY PERDOMO ([phone])[facility] ([facility])[address] [place] [address] Erythrocyte distribution width (RBC) [Ratio] 12.5 % Normal 11.5-15.0 [facility] Comment on above: Performed By: #### L [id number] ####Online Banking Specialist: TRACY PERDOMO ([phone])[facility] [employer] [facility] ([facility])[address] [place] [address] [facility] Hematocrit (Bld) [Volume fraction] 37.3 % Normal 35.0-47.0 [facility] Comment on above: Performed By: #### L [id number] ####Online Banking Specialist: TRACY PERDOMO ([phone])[facility] [employer] [facility] ([facility])[address] Hemoglobin (Bld) [Mass/Vol] 12.4 g/dL Normal 11.7-16.0 [facility] Comment on above: Performed By: #### L [id number] ####Online Banking Specialist: TRACY PERDOMO ([phone])[facility] [employer] [facility] ([facility])[address] IMMATURE GRANS % 0.6 % Normal 0.0-2.0 [facility] Comment on above: Performed By: #### L [id number] ####Online Banking Specialist: TRACY PERDOMO ([phone])[facility] [employer] [facility] ([facility])[address] IMMATURE GRANS ABSOLUTE 0.0 10*3/uL Normal <0.1 [facility] Comment on above: Performed By: #### L [id number] ####Online Banking Specialist: TRACY PERDOMO ([phone])[facility] [employer] [facility] ([facility])[address] Lymphocytes (Bld) [#/Vol] 2.0 10*3/uL Normal 1.0-4.3 [facility] Comment on above: Performed By: #### L [id number] ####Online Banking Specialist: TRACY PERDOMO ([phone])[facility])[address] Lymphocytes/100 WBC (Bld) 27.0 % Normal 15.0-45.0 [facility] Comment on above: Performed By: #### L [id number] ####Online Banking Specialist: TRACY LLANESLupisMARIELENA ([phone])[facility] ([facility])[address] MCH (RBC) [Entitic mass] 31.5 pg Normal 26.0-34.0 [facility] Comment on above: Performed By: #### L [id number] ####Online Banking Specialist: TRACY VEEMARIELENA ([phone])[facility] ([facility])[address] MCHC 33.2 % Normal 30.5-36.0 [facility] Comment on above: Performed By: #### L [id number] ####Online Banking Specialist: TRACY VEEMARIELENA ([phone])[facility] [employer] [facility] ([facility])[address] MCV (RBC) [Entitic vol] 94.7 fL Normal 77.0-99.0 [facility] Comment on above: Performed By: #### L [id number] ####Online Banking Specialist: TRACY PERDOMO ([phone])[facility] ([facility])[address] Monocytes (Bld) [#/Vol] 0.5 10*3/uL Normal 0.0-0.9 [facility] Comment on above: Performed By: #### L [id number] ####Online Banking Specialist: TRACY PERDOMO ([phone])[facility] ([facility])[address] [place] [address] [place] Monocytes/100 WBC (Bld) 7.1 % Normal 5.0-13.0 [facility] Comment on above: Performed By: #### L [id number] ####Online Banking Specialist: TRACY PERDOMO ([phone])[facility] ([facility])[address] NEUTROPHILS ABSOLUTE 4.5 10*3/uL Normal 1.8-7.5 [facility] Comment on above: Performed By: #### L [id number] ####Online Banking Specialist: TRACY PERDOMO ([phone])[facility] ([facility])[address] Neutrophils/100 WBC (Bld) 62.0 % Normal 38.0-82.0 [facility] Comment on above: Performed By: #### L [id number] ####Online Banking Specialist: TRACY PERDOMO ([phone])[facility] ([facility])[address] NRBC 0.0 /100 WBCs Normal 0.0-2.0 [facility] Comment on above: Performed By: #### L [id number] ####Online Banking Specialist: TRACY PERDOMO ([phone])[facility] [employer] [facility] ([facility])[address] [place] [address] Platelet mean volume (Bld) [Entitic vol] 9.0 fL Normal 9.0-12.7 [facility] Comment on above: Result Comment: MPV is a calculated measurement using platelet volume ratio Performed By: #### L [id number] ####Online Banking Specialist: TRACY PERDOMO ([phone])[facility] [employer] [facility])[address] [place] [address] [place] Platelets (Bld) [#/Vol] 259 10*3/uL Normal 140-440 [facility] Comment on above: Performed By: #### L [id number] ####Online Banking Specialist: TRACY PERDOMO ([phone])[facility] [employer] [facility])[address] RBC (Bld) [#/Vol] 3.94 10*6/uL Normal 3.80-5.20 [facility] Comment on above: Performed By: #### L [id number] ####Online Banking Specialist: TRACY PERDOMO ([phone])[facility] ([facility])[address] WBC (Bld) [#/Vol] 7.2 10*3/uL Normal 3.6-10.7 [facility] Comment on above: Performed By: #### L [id number] ####Online Banking Specialist: TRACY PERDOMO ([phone])[facility] ([facility])[address] COMPLETE URINALYSIS WITH REF TOM TO CULTUREon 04-29-2025 BACTERIA (#/HPF) IN URINE Negative Normal Negative [facility] Comment on above: Performed By: #### L [id number] ####Online Banking Specialist: TRACY PERDOMO ([phone])[facility] ([facility])[address] [place] [address] BILIRUBIN, TOTAL PRESENCE IN URINE Negative Normal Negative [facility] Comment on above: Performed By: #### L [id number] ####Online Banking Specialist: TRACY PERDOMO ([phone])[facility] ([facility])[address] Clarity (U) Clear Normal Clear [facility] Comment on above: Performed By: #### L [id number] ####Online Banking Specialist: TRACY PERDOMO ([phone])[facility] ([facility])[address] [place] [address] Color (U) Light Yellow Normal Lt. Yellow [facility] Comment on above: Performed By: #### L [id number] ####Online Banking Specialist: TRACY PERDOMO ([phone])[facility] ([facility])[address] [place] [address] [facility] Glucose (U) [Mass/Vol] 30 mg/dL Normal Normal (<70) [facility] Comment on above: Performed By: #### L [id number] ####Online Banking Specialist: TRACY PERDOMO ([phone])[facility] ([facility])[address] HEMOGLOBIN PRESENCE IN URINE 1.0 mg/dL Abnormal Negative [facility] Comment on above: Performed By: #### L [id number] ####Online Banking Specialist: TRACY PERDOMO ([phone])[facility] ([facility])[address] Ketones Ql (U) Negative Normal Negative [facility] Comment on above: Performed By: #### L [id number] ####Online Banking Specialist: TRACY PERDOMO ([phone])[facility] ([facility])[address] LEUKOCYTE ESTERASE PRESENCE IN URINE BY TEST STRIP Negative Normal Negative [facility] Comment on above: Performed By: #### L [id number] ####Online Banking Specialist: TRACY PERDOMO ([phone])[facility] ([facility])[address] NITRITE PRESENCE IN URINE Negative Normal Negative [facility] Comment on above: Performed By: #### L [id number] ####Online Banking Specialist: TRACY PERDOMO ([phone])[facility] ([facility])[address] [place] [address] [place] pH (U) 6.0 [pH] Normal 5.0-8.0 [facility] Comment on above: Performed By: #### L [id number] ####Online Banking Specialist: TRACY PERDOMO ([phone])[facility] ([facility])[address] [place] [address] [facility] Protein (U) [Mass/Vol] 10 mg/dL Abnormal Negative [facility] Comment on above: Performed By: #### L [id number] ####Online Banking Specialist: TRACY PERDOMO ([phone])[facility] ([facility])[address] [place] [address] [facility] RBC (#/HPF) IN URINE SEDIMENT 0-2 Normal 0-2 [facility] Comment on above: Performed By: #### L [id number] ####Online Banking Specialist: TRACY PERDOMO ([phone])[facility] ([facility])[address] Specific gravity (U) [Rel density] 1.027 Normal 1.005-1.03 0 [facility] Comment on above: Result Comment: VERA Dickey COMMENTS:A specimen with <=10 WBC is not consistent with inflammation. This specimen will not reflex to a urine culture. Performed By: #### L [id number] ####Online Banking Specialist: TRACY PERDOMO ([phone])[facility] ([facility])[address] Specimen volume (U) 12 mL Normal [facility] Comment on above: Performed By: #### L [id number] ####Online Banking Specialist: TRACY PERDOMO ([phone])[facility] ([facility])[address] SQUAMOUS EPITHELIAL CELLS (#/HPF) IN URINE SEDIMENT 0-2 Normal 3-5 [facility] Comment on above: Performed By: #### L [id number] ####Online Banking Specialist: TRACY PERDOMO ([phone])[facility] ([facility])[address] [place] [address] [facility] UROBILINOGEN (MG/DL) IN URINE Normal Normal Normal (0-1) [facility] Comment on above: Performed By: #### L [id number] ####Online Banking Specialist: TRACY PERDOMO ([phone])[facility] ([facility])[address] WBC (LEUKOCYTE) (#/HPF) IN URINE SEDIMENT 0-2 Normal 0-5 [facility] Comment on above: Performed By: #### L [id number] ####Online Banking Specialist: TRACY PERDOMO ([phone])[facility] ([facility])[address] COMPREHENSIVE METABOLIC PANE Randy 04-29-2025 Albumin [Mass/Vol] 3.6 g/dL Normal 3.5-5.0 [facility] Comment on above: Performed By: #### L AB17, LAB99, [id number] ####Online Banking Specialist: TRACY PERDOMO ([phone])[facility] ([facility])[address] ALP [Catalytic activity/Vol] 37 U/L Low 40-150 [facility] Comment on above: Performed By: #### L AB17, LAB99, [id number] ####Online Banking Specialist: TRACY PERDOMO ([phone])[facility] ([facility])[address] [place], [place] [address] [place] [address] ALT [Catalytic activity/Vol] 9 U/L Normal <30 [facility] Comment on above: Performed By: #### L AB17, LAB99, [id number] ####Online Banking Specialist: TRACY PERDOMO ([phone])[facility] ([facility])[address] [place] [address] [facility] Anion gap [Moles/Vol] 7 mmol/L Normal 3-13 [facility] Comment on above: Performed By: #### L AB17, LAB99, [id number] ####Online Banking Specialist: TRACY PERDOMO ([phone])[facility] ([facility])[address] [place] [address] [place] AST [Catalytic activity/Vol] 11 U/L Normal <34 [facility] Comment on above: Performed By: #### L AB17, LAB99, [id number] ####Online Banking Specialist: TRACY PERDOMO ([phone])[facility] ([facility])[address] [place] [address] [facility] Bilirubin [Mass/Vol] 0.2 mg/dL Normal <1.2 [facility] Comment on above: Performed By: #### L AB17, LAB99, [id number] ####Online Banking Specialist: TRACY PERDOMO ([phone])[facility] ([facility])[address] [place] [address] [facility] Calcium [Mass/Vol] 8.1 mg/dL Low 8.4-10.2 [facility] Comment on above: Performed By: #### Rachael AB17, LAB99, [id number] ####Online Banking Specialist: TRACY PERDOMO ([phone])[facility] ([facility])[address] [place] [address] [place] Chloride [Moles/Vol] 111 mmol/L High 98-107 [facility] Comment on above: Performed By: #### Rachael AB17, LAB99, [id number] ####Online Banking Specialist: TRACY PERDOMO ([phone])[facility] ([facility])[address] [place] [address] [place] CO2 [Moles/Vol] 22 mmol/L Normal 22-29 [facility] Comment on above: Performed By: #### L AB17, LAB99, [id number] ####Online Banking Specialist: TRACY PERDOMO ([phone])[facility] ([facility])[address] [place] [address] [place] Creatinine [Mass/Vol] 0.63 mg/dL Normal 0.57-1.11 [facility] Comment on above: Performed By: #### L AB17, LAB99, [id number] ####Online Banking Specialist: TRACY PERDOMO ([phone])[facility] ([facility])[address] [place] [address] [facility] GLOMERULAR FILTRATION RATE ML/MIN/1.73 SQ M.PREDICTED >90.0 Normal >60.0 [facility] Comment on above: Result Comment: Calc ulation based on the Chronic Kidney Disease Epidemiology Collaboration (CKD-EPI) equation refit without adjustment for race Performed By: #### L AB17, LAB99, [id number] ####Online Banking Specialist: TRACY PERDOMO ([phone])[facility] ([facility])[address] Glucose [Mass/Vol] 100 mg/dL Normal 74-100 [facility] Comment on above: Performed By: #### L AB17, LAB99, [id number] ####Online Banking Specialist: TRACY PERDOMO ([phone])[facility] ([facility])[address] [place] [address] [facility] Potassium [Moles/Vol] 4.1 mmol/L Normal 3.5-5.1 [facility] Comment on above: Result Comment: [facility] potassium values may be up to 0.5 mmol/L lower than serum values. Performed By: #### L AB17, LAB99, [id number] ####Online Banking Specialist: TRACY PERDOMO ([phone])[facility] ([facility])[address] [place] [address] [place] Protein [Mass/Vol] 6.1 g/dL Low 6.4-8.3 [facility] Comment on above: Performed By: #### L AB17, LAB99, [id number] ####Online Banking Specialist: TRACY PERDOMO ([phone])[facility] ([facility])[address] [place] [address] [place] Sodium [Moles/Vol] 140 mmol/L Normal 136-145 [facility] Comment on above: Performed By: #### L AB17, LAB99, [id number] ####Online Banking Specialist: TRACY PERDOMO ([phone])[facility] ([facility])[address] [place] [address] [facility] Urea nitrogen [Mass/Vol] 8 mg/dL Normal 05-30 [facility] Comment on above: Performed By: #### L AB17, LAB99, [id number] ####Online Banking Specialist: TRACY PERDOMO ([phone])[facility] ([facility])[address] [place] [address] [facility] [address] ABDOMEN PELVIS W CONTRAST on 04-29-2025 CT ABDOMEN PELVIS W CONTRAST Normal [facility] ED Nursing Noteon 04-29-2025 ED Nursing Note Home going instructi ons given to pt and verbalized understanding. Pt discharged amb from ER in satisfactory condition. Normal [facility] ED Nursing Note Pt in with complaint of abd pain pt states started yesterday and has gotten worse pt alert and oriented skin warm and dryno resp distress pt rates pain 8/10 with nausea gait steady upon arrival Normal [facility] ED Provider Noteon ED Provider Note Normal [facility] HCG QUANTITATIVE BLOODon HCG QUANTITATIVE <2.5 Normal Females <5 [facility] Comment on above: Result Comment: VERA Dickey COMMENTS:Values in should double every 2 to 3 days for the first 6 weeks. Elevated concentrations of human chorionic gonadotropin (hCG) measured in the first trimester of are observed in normal , but may serve as an indication of chorionic carcinoma, hydatiform mole, or multiple . Decreasing hCG concentrations indicate threatened or missed , recent termination of , ectopic , gestosis or intrauterine . Yanelis- and postmenopausal females may have detectable hCG concentrations (< or = to 14 mIU/mL) due to pituitary production of hCG. Serum follicle-stimulating hormone measurement may aid in ruling-out in this population. Cutoffs of greater than 20 to 45 mIU/mL have been suggested and are method dependent. False-elevations (called phantom human chorionic gonadotropin: hCG) may occur with patients who have human antianimal or heterophilic antibodies. Some specimens may not dilute linearly due to abnormal forms of hCG. Elevated hCG concentrations not associated with are found in patients with other diseases such as tumors of the germ cells, ovaries, bladder, pancreas, stomach, lungs, and liver. This test is not intended to detect or monitor tumors or gestational trophoblastic disease. Performed By: #### L AB17, LAB99, [id number] ####Online Banking Specialist: TRACY PERDOMO ([phone])[facility] ([facility])[address] LIPASEon 04-29-2025 Lipase [Catalytic activity/Vol] 49 U/L Normal <55 [facility] Comment on above: Performed By: #### L AB17, LAB99, [id number] ####Online Banking Specialist: TRACY PERDOMO ([phone])[facility] ([facility] [address] [id number] 02-22-2025 [id number] Normal [facility] [id number] 02-22-2025 [id number] Normal [facility] CBC (HEMOGRAM)on 02-22-2025 Erythrocyte distribution width (RBC) [Ratio] 12.3 % Normal 11.5-15.0 [facility] Comment on above: Performed By: #### L [id number] ####Online Banking Specialist: SOL ZENG ([phone])[address] Hematocrit (Bld) [Volume fraction] 37.9 % Normal 35.0-47.0 [facility] Comment on above: Performed By: #### L AB294 ####Online Banking Specialist: SOL ZENG ([phone])[facility])[address] [place] [address] Hemoglobin (Bld) [Mass/Vol] 12.7 g/dL Normal 11.7-16.0 [facility] Comment on above: Performed By: #### L AB294 ####Online Banking Specialist: SOL [phone])[facility])[address] [place] [address] MCH (RBC) [Entitic mass] 31.0 pg Normal 26.0-34.0 [facility] Comment on above: Performed By: #### L AB294 ####Online Banking Specialist: SOL ZENG ([phone])[facility] ([facility])[address] [place] [address] MCHC 33.5 % Normal 30.5-36.0 [facility] Comment on above: Performed By: #### L AB294 ####Online Banking Specialist: SOL ZENG ([phone])[facility] ([facility])[address] [place] [address] MCV (RBC) [Entitic vol] 92.4 fL Normal 77.0-99.0 [facility] Comment on above: Performed By: #### L AB294 ####Online Banking Specialist: SOL ZENG ([phone])[facility] ([facility])[address] [place] [address] Platelet mean volume (Bld) [Entitic vol] 9.2 fL Normal 9.0-12.7 [facility] Comment on above: Performed By: #### L AB294 ####Online Banking Specialist: SOL ZENG ([phone])[facility] ([facility])[address] [place] [address] Platelets (Bld) [#/Vol] 253 10*3/uL Normal 140-440 [facility] Comment on above: Performed By: #### L AB294 ####Online Banking Specialist: SOL ZENG ([phone])[facility] ([facility])[address] [place] [address] RBC (Bld) [#/Vol] 4.10 10*6/uL Normal 3.80-5.20 [facility] Comment on above: Performed By: #### L AB294 ####Online Banking Specialist: SOL ZENG ([phone])[facility] ([facility])[address] [place] [address] WBC (Bld) [#/Vol] 6.3 10*3/uL Normal 3.6-10.7 [facility] Comment on above: Performed By: #### L [id number] ####Online Banking Specialist: SOL ZENG ([phone])[facility] ([facility])[address] [place] [address] CBC panel Auto (Bld)on 02-22 Erythrocyte distribution width (RBC) [Ratio] 12.3 % 11.5 - 15.0 % [facility] Hematocrit (Bld) [Volume fraction] 37.9 % 35.0 - 47.0 % [facility] Hemoglobin (Bld) [Mass/Vol] 12.7 g/dL 11.7 - 16.0 g/dL [facility] Interpretation and review of laboratory results Normal [facility] MCH (RBC) [Entitic mass] 31 pg 26.0 - 34.0 pg [facility] MCHC (RBC) [Mass/Vol] 33.5 % 30.5 - 36.0 % [facility] MCV (RBC) [Entitic vol] 92.4 fL 77.0 - 99.0 fL [facility] Platelet mean volume (Bld) [Entitic vol] 9.2 fL 9.0 - 12.7 fL [facility] Platelets (Bld) [#/Vol] 253 10*3/uL 140 - 440 10*3/uL [facility] RBC (Bld) [#/Vol] 4.1 10*6/uL 3.80 - 5.20 10*6/uL [facility] WBC (Bld) [#/Vol] 6.3 10*3/uL 3.6 - 10.7 10*3/uL [facility] COMPREHENSIVE METABOLIC PANE Randy 02-22-2025 Albumin [Mass/Vol] 3.7 g/dL Normal 3.5-5.0 [facility] Comment on above: Performed By: #### L [id number] ####Online Banking Specialist: SOL ZENG ([phone])[facility] ([facility])[address] [place] [address] ALP [Catalytic activity/Vol] 37 U/L Low 40-150 [facility] Comment on above: Performed By: #### L [id number] ####Online Banking Specialist: SOL ZENG ([phone])[facility] ([facility])[address] [place] [address] ALT [Catalytic activity/Vol] 8 U/L Normal <30 [facility] Comment on above: Performed By: #### L [id number] ####Online Banking Specialist: SOL ZENG ([phone])[facility] ([facility])[address] [place] [address] Anion gap [Moles/Vol] 8 mmol/L Normal 3-13 [facility] Comment on above: Performed By: #### L [id number] ####Online Banking Specialist: SOL ZENG ([phone])[facility] ([facility])[address] [place] [address] AST [Catalytic activity/Vol] 17 U/L Normal <34 [facility] Comment on above: Performed By: #### L [id number] ####Online Banking Specialist: SOL ZENG ([phone])[facility] ([facility])[address] [place] [address] Bilirubin [Mass/Vol] 0.3 mg/dL Normal <1.2 [facility] Comment on above: Performed By: #### L [id number] ####Online Banking Specialist: SOL ZENG ([phone])[facility] ([facility])[address] [place] [address] Calcium [Mass/Vol] 8.4 mg/dL Normal 8.4-10.2 [facility] Comment on above: Performed By: #### L [id number] ####Online Banking Specialist: SOL ZENG ([phone])[facility] ([facility])[address] [place] [address] [place] Chloride [Moles/Vol] 110 mmol/L High 98-107 [facility] Comment on above: Performed By: #### L [id number] ####Online Banking Specialist: SOL ZENG ([phone])[facility])[address] [place] [address] CO2 [Moles/Vol] 20 mmol/L Low 22-29 [facility] Comment on above: Performed By: #### L [id number] ####Online Banking Specialist: SOL [phone])[facility] ([facility])[address] [place] [address] Creatinine [Mass/Vol] 0.65 mg/dL Normal 0.57-1.11 [facility] Comment on above: Performed By: #### L [id number] ####Online Banking Specialist: SOL ZENG ([phone])[facility])[address] [place] [address] [place] GLOMERULAR FILTRATION RATE ML/MIN/1.73 SQ M.PREDICTED >90.0 Normal >60.0 [facility] Comment on above: Result Comment: Calc ulation based on the Chronic Kidney Disease Epidemiology Collaboration (CKD-EPI) equation refit without adjustment for race Performed By: #### L [id number] ####Online Banking Specialist: SOL ZENG ([phone])[facility] ([facility])[address] [place] [address] Glucose [Mass/Vol] 94 mg/dL Normal 74-100 [facility] Comment on above: Performed By: #### L [id number] ####Online Banking Specialist: SOL ZENG ([phone])[facility])[address] [place] [address] [place] Potassium [Moles/Vol] 4.1 mmol/L Normal 3.5-5.1 [facility] Comment on above: Result Comment: [facility] potassium values may be up to 0.5 mmol/L lower than serum values. Performed By: #### L [id number] ####Online Banking Specialist: SOL ZENG ([phone])[facility] ([facility])[address] [place] [address] [place] Protein [Mass/Vol] 6.3 g/dL Low 6.4-8.3 [facility] Comment on above: Performed By: #### L [id number] ####Online Banking Specialist: SOL ZENG ([phone])[facility])[address] [place] [address] [place] Sodium [Moles/Vol] 138 mmol/L Normal 136-145 [facility] Comment on above: Performed By: #### L [id number] ####Online Banking Specialist: SOL ZENG ([phone])[facility] ([facility])[address] [place] [address] Urea nitrogen [Mass/Vol] 9 mg/dL Normal 8-21 [facility] Comment on above: Performed By: #### L [id number] ####Online Banking Specialist: SOL ZENG ([phone])[facility] ([facility])[address] [place] [address] Comprehensive metabolic 1998 panelon 02-22-2025 Albumin [Mass/Vol] 3.7 g/dL 3.5 - 5.0 g/dL [facility] ALP [Catalytic activity/Vol] 37 U/L Low 40 - 150 U/L [facility] ALT [Catalytic activity/Vol] 8 U/L NINF - 30 U/L [facility] Anion gap [Moles/Vol] 8 mmol/L 3 - 13 mmol/L [facility] AST [Catalytic activity/Vol] 17 [facility] Bilirubin [Mass/Vol] 0.3 mg/dL NINF - 1.2 mg/dL [facility] Calcium [Mass/Vol] 8.4 mg/dL 8.4 - 10. 2 mg/dL [facility] Chloride [Moles/Vol] 110 mmol/L High 98 - 10 7 mmol/L [facility] CO2 [Moles/Vol] 20 mmol/L Low 22 - 29 mmol/L [facility] Creatinine [Mass/Vol] 0.65 mg/dL 0.57 - 1.11 mg/dL [facility] GFR/1.73 sq M.predicted (S/P/Bld) [Vol rate/Area] - PINF [facility] Comment on above: Calculation based on the Chronic Kidney Disease Epidemiology Collaboration (CKD-EPI) equation refit without adjustment for race Glucose [Mass/Vol] 94 mg/dL 74 - 100 mg/dL [facility] Interpretation and review of laboratory results Abnormal [facility] Potassium [Moles/Vol] 4.1 mmol/L 3.5 - 5.1 mmol/L [facility] Comment on above: Plasma potassium kelsy ues may be up to 0.5 mmol/L lower than serum values. Protein [Mass/Vol] 6.3 g/dL Low 6.4 - 8.3 g/dL [facility] Sodium [Moles/Vol] 138 mmol/L 136 - 145 mmol/L [facility] Urea nitrogen [Mass/Vol] 9 mg/dL 8 - 21 mg/dL [facility] Progress Noteon 02-22-2025 Progress Note Nutrition rescreen completed. Chart reviewed. Patient to be monitored and followed by the diet plasma processing technician. Dietitian available upon request. NICKY Maldonado [facility] 30on 02-21-2025 30 [facility] 30 Normal [facility] [id number] 02-21-2025 [id number] [facility] Consulton 02-21-2025 Consult [facility] ECG 12-LEADon 02-21-2025 ECG 12-LEAD IMPRESSION: EKG shows NSR, normal axis, normal LA QRS and QTC intervals, no STEMI, no SVT, no LVH. Previous EKG showed ectopic atrial rhythm. Electronically Signed On 02-21-2025 02:40:40 EDT by Contreras Castillo [facility] ED Nursing Noteon 02-21-2025 ED Nursing Note Pt transferring to A in private vehicle with significant other. Patient A/Ox4, stable at time of transfer. [facility] ED Nursing Note Report called to Denis barnes RN, [facility] 4N [facility] ED Nursing Note Patient resting comf ortably in bed, no distress noted. Awaiting bed assignment. Call light within reach. Normal [facility] No Panel InformationOrdered By: Contreras Castillo on 02-21-2025 P [place] 78 degrees [facility] Phone: LA Interval 140 ms [facility] Phone: QRS [place] 64 degrees [facility] Phone: QRSD Interval 90 ms [facility] Phone: QT Interval 392 ms [facility] Phone: QTC Interval 447 ms [facility] Phone: T Wave [place] 39 degrees [facility] Phone: [facility] Phone: No Panel Informationon 02-21 EKG shows NSR, liliana l axis, normal LA QRS and QTC intervals, no STEMI, no SVT, no LVH. Previous EKG showed ectopic atrial rhythm. Electronically Signed On 02-21-2025 02:40:40 EDT by Contreras Narayan MD - 02/21/2025 IMPRESSION: EKG shows NSR, normal axis, normal LA QRS and QTC intervals, no STEMI, no SVT, no LVH. Previous EKG showed ectopic atrial rhythm. Electronically Signed On 02-21-2025 02:40:40 EDT by Contreras Castillo [facility] Vital signsOrdered By: Renetta Castillo on 02-21-2025 Heart rate 78 /min bpm [facility] Work Phone: 36on 02-20-2025 36 If she wants [place], can she be seen on the 16 in [place] w/Aníbal? 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 / Normal [facility] CBC W Auto Differential pane l (Bld)on 02-20-2025 Basophils (Bld) [#/Vol] 0 10*3/uL 0.0 - 0.2 10*3/uL [facility] Basophils/100 WBC (Bld) 0.4 % 0.0 - 2.0 % [facility] Eosinophils (Bld) [#/Vol] 0.2 10*3/uL 0.0 - 0.5 10*3/uL [facility] Eosinophils/100 WBC (Bld) 2.4 % 0.0 - 6.0 % [facility] Erythrocyte distribution width (RBC) [Ratio] 12.4 % 11.5 - 15.0 % [facility] Hematocrit (Bld) [Volume fraction] 39.7 % 35.0 - 47.0 % [facility] Hemoglobin (Bld) [Mass/Vol] 13.4 g/dL 11.7 - 16.0 g/dL [facility] [employer] Immature granulocytes (Bld) [#/Vol] 0 10*3/uL NINF - 0.1 10*3/uL [facility] [employer] Immature granulocytes/100 WBC (Bld) 0.3 % 0.0 - 2.0 % [facility] Interpretation and review of laboratory results Abnormal [facility] Lymphocytes (Bld) [#/Vol] 2.2 10*3/uL 1.0 - 4.3 10*3/uL [facility] Lymphocytes/100 WBC (Bld) 29 % 15.0 - 45.0 % [facility] MCH (RBC) [Entitic mass] 31.2 pg 26.0 - 34.0 pg [facility] MCHC (RBC) [Mass/Vol] 33.8 % 30.5 - 36.0 % [facility] MCV (RBC) [Entitic vol] 92.5 fL 77.0 - 99.0 fL [facility] Monocytes (Bld) [#/Vol] 0.4 10*3/uL 0.0 - 0.9 10*3/uL [facility] Monocytes/100 WBC (Bld) 4.6 % Low 5.0 - 13.0 % [facility] Neutrophils (Bld) [#/Vol] 4.8 10*3/uL 1.8 - 7.5 10*3/uL [facility] Neutrophils/100 WBC (Bld) 63.3 % 38.0 - 82.0 % [facility] Nucleated RBC/100 WBC (Bld) [Ratio] 0 % [facility] Platelet mean volume (Bld) [Entitic vol] 9.2 fL 9.0 - 12.7 fL [facility] Comment on above: MPV is a calculated measurement using platelet volume ratio Platelets (Bld) [#/Vol] 271 10*3/uL 140 - 440 10*3/uL [facility] RBC (Bld) [#/Vol] 4.29 10*6/uL 3.80 - 5.20 10*6/uL [facility] WBC (Bld) [#/Vol] 7.6 10*3/uL 3.6 - 10.7 10*3/uL [facility] CBC WITH AUTO DIFFERENTIALon 02-20-2025 Basophils (Bld) [#/Vol] 0.0 10*3/uL Normal 0.0-0.2 [facility] Comment on above: Performed By: #### L [id number] ####Online Banking Specialist: TRACY PERDOMO ([phone])[facility] ([facility])[address] Basophils/100 WBC (Bld) 0.4 % Normal 0.0-2.0 [facility] Comment on above: Performed By: #### L [id number] ####Online Banking Specialist: TRACY PERDOMO ([phone])[facility])[address] Eosinophils (Bld) [#/Vol] 0.2 10*3/uL Normal 0.0-0.5 [facility] Comment on above: Performed By: #### L [id number] ####Online Banking Specialist: TRACY PERDOMO ([phone])[facility] ([facility])[address] Eosinophils/100 WBC (Bld) 2.4 % Normal 0.0-6.0 [facility] Comment on above: Performed By: #### L [id number] ####Online Banking Specialist: TRACY PERDOMO ([phone])[facility] ([facility])[address] Erythrocyte distribution width (RBC) [Ratio] 12.4 % Normal 11.5-15.0 [facility] Comment on above: Performed By: #### L [id number] ####Online Banking Specialist: TRACY PERDOMO ([phone])[facility] ([facility])[address] Hematocrit (Bld) [Volume fraction] 39.7 % Normal 35.0-47.0 [facility] Comment on above: Performed By: #### L [id number] ####Online Banking Specialist: TRACY PERDOMO ([phone])[facility] ([facility])[address] Hemoglobin (Bld) [Mass/Vol] 13.4 g/dL Normal 11.7-16.0 [facility] Comment on above: Performed By: #### L [id number] ####Online Banking Specialist: TRACY PERDOMO ([phone])[facility])[address] IMMATURE GRANS % 0.3 % Normal 0.0-2.0 [facility] Comment on above: Performed By: #### L [id number] ####Online Banking Specialist: TRACY PERDOMO ([phone])[facility])[address] IMMATURE GRANS ABSOLUTE 0.0 10*3/uL Normal <0.1 [facility] Comment on above: Performed By: #### L [id number] ####Online Banking Specialist: TRACY PERDOMO ([phone])[facility])[address] Lymphocytes (Bld) [#/Vol] 2.2 10*3/uL Normal 1.0-4.3 [facility] Comment on above: Performed By: #### L [id number] ####Online Banking Specialist: TRACY PERDOMO ([phone])[facility] ([facility])[address] Lymphocytes/100 WBC (Bld) 29.0 % Normal 15.0-45.0 [facility] Comment on above: Performed By: #### L [id number] ####Online Banking Specialist: TRACY PERDOMO ([phone])[facility] ([facility])[address] MCH (RBC) [Entitic mass] 31.2 pg Normal 26.0-34.0 [facility] Comment on above: Performed By: #### L [id number] ####Online Banking Specialist: TRACY PERDOMO ([phone])[facility])[address] MCHC 33.8 % Normal 30.5-36.0 [facility] Comment on above: Performed By: #### L [id number] ####Online Banking Specialist: TRACY PERDOMO ([phone])[facility])[address] MCV (RBC) [Entitic vol] 92.5 fL Normal 77.0-99.0 [facility] Comment on above: Performed By: #### L [id number] ####Online Banking Specialist: TRACY VEEMARIELENA ([phone])[facility])[address] Monocytes (Bld) [#/Vol] 0.4 10*3/uL Normal 0.0-0.9 [facility] Comment on above: Performed By: #### L [id number] ####Online Banking Specialist: TRACY PERDOMO ([phone])[facility])[address] Monocytes/100 WBC (Bld) 4.6 % Low 5.0-13.0 [facility] Comment on above: Performed By: #### L [id number] ####Online Banking Specialist: TRACY PERDOMO ([phone])[facility])[address] [place] [address] [place] NEUTROPHILS ABSOLUTE 4.8 10*3/uL Normal 1.8-7.5 [facility] Comment on above: Performed By: #### L [id number] ####Online Banking Specialist: TRACY PERDOMO ([phone])[facility])[address] [place] [address] [place] Neutrophils/100 WBC (Bld) 63.3 % Normal 38.0-82.0 [facility] Comment on above: Performed By: #### L [id number] ####Online Banking Specialist: TRACY PERDOMO ([phone])[facility] [employer] [facility])[address] [place] [address] [facility] NRBC 0.0 /100 WBCs Normal 0.0-2.0 [facility] Comment on above: Performed By: #### L [id number] ####Online Banking Specialist: TRACY PERDOMO ([phone])[facility] ([facility])[address] Platelet mean volume (Bld) [Entitic vol] 9.2 fL Normal 9.0-12.7 [facility] Comment on above: Result Comment: MPV is a calculated measurement using platelet volume ratio Performed By: #### L [id number] ####Online Banking Specialist: TRACY PERDOMO ([phone])[facility] [employer] [facility])[address] [place] [address] [place] Platelets (Bld) [#/Vol] 271 10*3/uL Normal 140-440 [facility] Comment on above: Performed By: #### L [id number] ####Online Banking Specialist: TRACY PERDOMO ([phone])[facility] [employer] [facility])[address] [place] [address] [place] RBC (Bld) [#/Vol] 4.29 10*6/uL Normal 3.80-5.20 [facility] Comment on above: Performed By: #### L [id number] ####Online Banking Specialist: TRACY PERDOMO ([phone])[facility] [employer] [facility])[address] [place] [address] [facility] WBC (Bld) [#/Vol] 7.6 10*3/uL Normal 3.6-10.7 [facility] Comment on above: Performed By: #### L [id number] ####Online Banking Specialist: TRACY PERDOMO ([phone])[facility] ([facility])[address] COMPLETE URINALYSIS WITH REF TOM TO CULTUREon 02-20-2025 BILIRUBIN, TOTAL PRESENCE IN URINE Negative Normal Negative [facility] Comment on above: Performed By: #### L [id number] ####Online Banking Specialist: TRACY PREDOMO ([phone])[facility] ([facility])[address] Clarity (U) Slightly Cloudy Abnormal Clear [facility] Comment on above: Performed By: #### L [id number] ####Online Banking Specialist: TRACY PERDOMO ([phone])[facility] ([facility])[address] [place] [address] Color (U) Light Yellow Normal Lt. Yellow [facility] Comment on above: Performed By: #### L [id number] ####Online Banking Specialist: TRACY PERDOMO ([phone])[facility] ([facility])[address] [place] [address] [place] GLUCOSE (MG/DL) IN URINE Normal Normal Normal (<70) [facility] Comment on above: Performed By: #### L [id number] ####Online Banking Specialist: TRACY PERDOMO ([phone])[facility] ([facility])[address] HEMOGLOBIN PRESENCE IN URINE Negative Normal Negative [facility] Comment on above: Performed By: #### L [id number] ####Online Banking Specialist: TRACY PERDOMO ([phone])[facility])[address] [place] [address] [place] Ketones Ql (U) Negative Normal Negative [facility] Comment on above: Performed By: #### L [id number] ####Online Banking Specialist: TRACY PERDOMO ([phone])[facility] ([facility])[address] [place] [address] [place] LEUKOCYTE ESTERASE PRESENCE IN URINE BY TEST STRIP Negative Normal Negative [facility] Comment on above: Performed By: #### L [id number] ####Online Banking Specialist: TRACY PERDOMO ([phone])[facility] ([facility])[address] [place] [address] [facility] NITRITE PRESENCE IN URINE Negative Normal Negative [facility] Comment on above: Performed By: #### L [id number] ####Online Banking Specialist: TRACY PERDOMO ([phone])[facility] ([facility])[address] [place] [address] [facility] pH (U) 6.5 [pH] Normal 5.0-8.0 [facility] Comment on above: Performed By: #### L [id number] ####Online Banking Specialist: TRACY PERDOOM ([phone])[facility] ([facility])[address] [place] [address] [place] Protein (U) [Mass/Vol] Negative Normal Negative [facility] Comment on above: Performed By: #### L [id number] ####Online Banking Specialist: TRACY PERDOMO ([phone])[facility] ([facility])[address] [place] [address] [place] Specific gravity (U) [Rel density] 1.008 Normal 1.005-1.03 0 [facility] Comment on above: Result Comment: ORDE R COMMENTS:A specimen with <=10 WBC is not consistent with inflammation. This specimen will not reflex to a urine culture. Performed By: #### L [id number] ####Online Banking Specialist: TRACY PERDOMO ([phone])[facility] ([facility])[address] [place] [address] [place] UROBILINOGEN (MG/DL) IN URINE Normal Normal Normal (0-1) [facility] Comment on above: Performed By: #### Rachael [id number] ####Online Banking Specialist: TRACY PERDOMO ([phone])[facility] ([facility] [facility] COMPREHENSIVE METABOLIC PANE Randy 02-20-2025 Albumin [Mass/Vol] 4.1 g/dL Normal 3.5-5.0 [facility] Comment on above: Performed By: #### Rachael AB17, LAB99, [id number] ####Online Banking Specialist: TRACY PERDOMO ([phone])[facility] ([facility])[address] ALP [Catalytic activity/Vol] 38 U/L Low 40-150 [facility] Comment on above: Performed By: #### Rachael MCCLAIN17, LAB99, [id number] ####Online Banking Specialist: TRACY PERDOMO ([phone])[facility] ALT [Catalytic activity/Vol] 8 U/L Normal <30 [facility] Comment on above: Performed By: #### Rachael MCCLAIN17, LAB99, [id number] ####Online Banking Specialist: TRACY PERDOMO ([phone])[facility] ([facility])[address] Anion gap [Moles/Vol] 12 mmol/L Normal 3-13 [facility] Comment on above: Performed By: #### Rachael AB17, LAB99, [id number] ####Online Banking Specialist: TRACY PERDOMO ([phone])[facility] ([facility])[address] [place] [id number] AST [Catalytic activity/Vol] 12 U/L Normal <34 [facility] Comment on above: Performed By: #### Rachael AB17, LAB99, [id number] ####Online Banking Specialist: TRACY PERDOMO ([phone])[facility] [place] [address] [place] Bilirubin [Mass/Vol] 0.4 mg/dL Normal <1.2 [facility] Comment on above: Performed By: #### Rachael MCCLAIN17, LAB99, [id number] ####Online Banking Specialist: TRACY PERDOMO ([phone])[facility] [place] [address] [facility] Calcium [Mass/Vol] 8.9 mg/dL Normal 8.4-10.2 [facility] Comment on above: Performed By: #### Rachael SOMMER, LAB99, [id number] ####Online Banking Specialist: TRACY PERDOMO ([phone])[facility] [place] [address] [place] Chloride [Moles/Vol] 105 mmol/L Normal 98-107 [facility] Comment on above: Performed By: #### Rachael SOMMER, LAB99, [id number] ####Online Banking Specialist: TRACY PERDOMO ([phone])[facility] [place] [address] [place] CO2 [Moles/Vol] 22 mmol/L Normal 22-29 [facility] Comment on above: Performed By: #### Rachael SOMMER, LAB99, [id number] ####Online Banking Specialist: TRACY PERDOMO ([phone])[facility])[address] [place] [address] [place] Creatinine [Mass/Vol] 0.66 mg/dL Normal 0.57-1.11 [facility] Comment on above: Performed By: #### Rachael AB17, LAB99, [id number] ####Online Banking Specialist: TRACY PERDOMO ([phone])[facility])[address] [place] [address] [place] GLOMERULAR FILTRATION RATE ML/MIN/1.73 SQ M.PREDICTED >90.0 Normal >60.0 [facility] Comment on above: Result Comment: Calc ulation based on the Chronic Kidney Disease Epidemiology Collaboration (CKD-EPI) equation refit without adjustment for race Performed By: #### Rachael SOMMER, LAB99, [id number] ####Online Banking Specialist: TRACY PERDOMO ([phone])[facility])[address] [place] [address] [place] Glucose [Mass/Vol] 92 mg/dL Normal 74-100 [facility] Comment on above: Performed By: #### Rachael SOMMER, LAB99, [id number] ####Online Banking Specialist: TRACY PERDOMO ([phone])[facility] ([facility])[address] [place] [address] [place] Potassium [Moles/Vol] 4.0 mmol/L Normal 3.5-5.1 [facility] Comment on above: Result Comment: [facility] potassium values may be up to 0.5 mmol/L lower than serum values. Performed By: #### Rachael SOMMER, LAB99, [id number] ####Online Banking Specialist: TRACY PERDOMO ([phone])[facility])[address] [place] [address] [place] Protein [Mass/Vol] 7.2 g/dL Normal 6.4-8.3 [facility] Comment on above: Performed By: #### Rachael SOMMER, LAB99, [id number] ####Online Banking Specialist: TRACY PERDOMO ([phone])[facility])[address] [place] [address] [place] Sodium [Moles/Vol] 139 mmol/L Normal 136-145 [facility] Comment on above: Performed By: #### Rachael MCCLAIN17, LAB99, [id number] ####Online Banking Specialist: TRACY PERDOMO ([phone])[facility] ([facility])[address] Urea nitrogen [Mass/Vol] 8 mg/dL Normal 8-21 [facility] Comment on above: Performed By: #### L AB17, LAB99, [id number] ####Online Banking Specialist: TRACY PERDOMO ([phone])[facility] ([facility])[address] ABDOMEN PELVIS W CONTRAST on 02-20-2025 CT ABDOMEN PELVIS W CONTRAST Normal [facility] CT Abdomen and Pelvis W cont rast Oscar 02-20-2025 Patient Name: MEL WALL : 1985 Exam Date/Time: 02/20/2025 18:30 Procedure: CT ABDOMEN PELVIS W CONTRAST Ordering Provider: SAHNI CONNOR Reason For Exam: lower abdominal pain, history of hernia repair HISTORY: Lower abdominal pain, history of hernia repair After intravenous contrast sections performed through the abdomen and pelvis. Dose reduction was employed with automatic exposure control. Comparison study from 12/25/2024, 11/23/2024, 09/02/2024, 08/07/2024, 04/24/2024, 04/15/2024, 04/10/2024, 11/13/2023, 10/19/2023, 09/13/2023,. FINDINGS: 1. Apparent prior cholecystectomy with upper abdominal surgical clips at duodenum with small bowel surgery left side with minimal dilated jejunal loops. 2. Postsurgical changes anterior abdominal wall with some adjacent bowel loops (possibly due to adhesions) with diastases recti. Bilateral tubal ligation clips. 3. Punctate right renal calculus, small bilateral renal cysts Report Dictated on Electronically Signed By: Satish Devine MD Electronically Signed Date/Time: 02/20/2025 6:50 PM T [facility] Satish Devine MD - 02/20/2025 Patient Name: MEL WALL : 1985 Exam Date/Time: 02/20/2025 18:30 Procedure: CT ABDOMEN PELVIS W CONTRAST Ordering Provider: SAHNI CONNOR Reason For Exam: lower abdominal pain, history of hernia repair HISTORY: Lower abdominal pain, history of hernia repair After intravenous contrast sections performed through the abdomen and pelvis. Dose reduction was employed with automatic exposure control. Comparison study from 12/25/2024, 11/23/2024, 09/02/2024, 08/07/2024, 04/24/2024, 04/15/2024, 04/10/2024, 11/13/2023, 10/19/2023, 09/13/2023,. FINDINGS: 1. Apparent prior cholecystectomy with upper abdominal surgical clips at duodenum with small bowel surgery left side with minimal dilated jejunal loops. 2. Postsurgical changes anterior abdominal wall with some adjacent bowel loops (possibly due to adhesions) with diastases recti. Bilateral tubal ligation clips. 3. Punctate right renal calculus, small bilateral renal cysts Report Dictated on Electronically Signed By: Satish Devine MD Electronically Signed Date/Time: 02/20/2025 6:50 PM EDT [facility] Radiology Study observation (narrative) [facility] CT Abdomen and Pelvis W cont rast IVOrdered By: Satish Devine on 02-20-2025 [facility] [employer] Work Phone: Comprehensive metabolic 1998 panelon 02-20-2025 Albumin [Mass/Vol] 4.1 g/dL 3.5 - 5.0 g/dL [facility] ALP [Catalytic activity/Vol] 38 U/L Low 40 - 150 U/L [facility] ALT [Catalytic activity/Vol] 8 U/L NINF - 30 U/L [facility] Anion gap [Moles/Vol] 12 mmol/L 3 - 13 mmol/L [facility] AST [Catalytic activity/Vol] 12 U/L NINF - 34 U/L [facility] Bilirubin [Mass/Vol] 0.4 mg/dL NINF - 1.2 mg/dL [facility] Calcium [Mass/Vol] 8.9 mg/dL 8.4 - 10. 2 mg/dL [facility] Chloride [Moles/Vol] 105 mmol/L 98 - 10 7 mmol/L [facility] [employer] CO2 [Moles/Vol] 22 mmol/L 22 - 29 mmol/L [facility] Creatinine [Mass/Vol] 0.66 mg/dL 0.57 - 1.11 mg/dL [facility] GFR/1.73 sq M.predicted (S/P/Bld) [Vol rate/Area] - PINF [facility] Comment on above: Calculation based on the Chronic Kidney Disease Epidemiology Collaboration (CKD-EPI) equation refit without adjustment for race Glucose [Mass/Vol] 92 mg/dL 74 - 100 mg/dL [facility] Interpretation and review of laboratory results Abnormal [facility] Potassium [Moles/Vol] 4 mmol/L 3.5 - 5.1 mmol/L [facility] Comment on above: Plasma potassium kelsy ues may be up to 0.5 mmol/L lower than serum values. Protein [Mass/Vol] 7.2 g/dL 6.4 - 8.3 g/dL [facility] Sodium [Moles/Vol] 139 mmol/L 136 - 145 mmol/L [facility] Urea nitrogen [Mass/Vol] 8 mg/dL 8 - 21 mg/dL [facility] ED Nursing Noteon 02-20-2025 ED Nursing Note PT ambulatory to restroom Normal [facility] ED Provider Noteon ED Provider Note Normal [facility] HCG QUALITATIVE URINEon 02-07 Beta HCG ( test) Ql (U) Negative Normal Negative [facility] Comment on above: Result Comment: Plea se note: Very dilute urine specimens, as indicated by a low specific gravity, may not contain loan representative levels of hCG. If is still suspected, a first morning urine specimen should be collected 48 hours later and tested.ORDER COMMENTS: is the most common reason for HCG in urine, although choriocarcinoma, hydatidiform mole, and certain nontrophoblastic malignancies also result in detectable urinary HCG levels. Sensitivity = 20mIU/mL. Performed By: #### L [id number] ####Online Banking Specialist: TRACY PERDOMO ([phone])[facility] ([facility])[address] [place] [address] [facility] HIGH SENSITIVITY TROPONIN, S ERIAL BASELINEon 02-20-2025 TROPONIN HS SERIAL BASELINE <3 Normal <=14 [facility] Comment on above: Result Comment: In i ndividuals presenting with symptoms > 2h, a baseline troponin <= 5 ng/L suggests acutecardiac injury is unlikely and further serial testing is generally not indicated. Performed By: #### L AB17, LAB99, [id number] ####Online Banking Specialist: TRACY PERDOMO ([phone])[facility] ([facility])[address] [place] [address] [facility] LIPASEon 02-20-2025 Lipase [Catalytic activity/Vol] 23 U/L Normal <55 [facility] Comment on above: Performed By: #### L AB17, LAB99, [id number] ####Online Banking Specialist: TRACY PERDOMO ([phone])[facility] ([facility])[address] [place] [address] [facility] Laboratory - Chemistry and C hemistry - challengeon 02-20-2025 Lipase [Catalytic activity/Vol] 23 U/L NINF - 55 U/L [facility] Beta HCG ( test) Ql Negative Negative [facility] Comment on above: Please note: Very di lute urine specimens, as indicated by a low specific gravity, may not contain loan representative levels of hCG. If is still suspected, a first morning urine specimen should be collected 48 hours later and tested. Beta HCG ( test) Ql (U) is the most common reason for HCG in urine, although choriocarcinoma, hydatidiform mole, and certain nontrophoblastic malignancies also result in detectable urinary HCG levels. Sensitivity = 20mIU/mL. [facility] Lipase [Catalytic activity/V ol]on 02-20-2025 Interpretation and review of laboratory results Normal [facility] [employer] No Panel Informationon 02-20 Interpretation and review of laboratory results Normal [facility] Troponin HS Serial Baseline ng/L NINF - 14 ng/L [facility] Comment on above: In individuals prese nting with symptoms > 2h, a baseline troponin <= 5 ng/L suggests acute cardiac injury is unlikely and further serial testing is generally not indicated. [facility] Urinalysis complete panel (U )Ordered By: Moira Heck on 02-20-2025 Bilirubin Ql (U) Negative Negative mg/dL [facility] [employer] Clarity (U) Slightly Cloudy Abnormal Clear [facility] Color (U) Light Yellow Lt. Yellow [facility] Glucose Ql (U) Normal Normal (<70) mg/dL [facility] Hemoglobin Ql (U) Negative Negative mg/dL [facility] Interpretation and review of laboratory results Abnormal [facility] Ketones (U) [Mass/Vol] Negative Negative mg/dL [facility] Leukocyte esterase Test strip Ql (U) Negative Negative [place]/uL [facility] Nitrite Ql (U) Negative Negative [facility] pH (U) 6.5 [pH] 5.0 - 8.0 pH [facility] Protein (U) [Mass/Vol] Negative Negative mg/dL [facility] Specific gravity (U) [Rel density] 1.008 1.005 - 1.030 [facility] Urobilinogen (U) [Mass/Vol] Normal Normal (0-1) mg/dL [facility] A specimen with <=10 WBC is not consistent with inflammation. This specimen will not reflex to a urine culture. [facility] CBC W Auto Differential pane l (Bld)on 12-25-2024 Basophils (Bld) [#/Vol] 0 10*3/uL 0.0 - 0.2 10*3/uL [facility] Basophils/100 WBC (Bld) 0.5 % 0.0 - 2.0 % [facility] Eosinophils (Bld) [#/Vol] 0.2 10*3/uL 0.0 - 0.5 10*3/uL [facility] Eosinophils/100 WBC (Bld) 2.2 % 0.0 - 6.0 % [facility] Erythrocyte distribution width (RBC) [Ratio] 12.9 % 11.5 - 15.0 % [facility] Hematocrit (Bld) [Volume fraction] 39.7 % 35.0 - 47.0 % [facility] Hemoglobin (Bld) [Mass/Vol] 13.5 g/dL 11.7 - 16.0 g/dL [facility] Immature granulocytes (Bld) [#/Vol] 0 10*3/uL NINF - 0.1 10*3/uL [facility] Immature granulocytes/100 WBC (Bld) 0.3 % 0.0 - 2.0 % [facility] Interpretation and review of laboratory results Normal [facility] Lymphocytes (Bld) [#/Vol] 2.6 10*3/uL 1.0 - 4.3 10*3/uL [facility] Lymphocytes/100 WBC (Bld) 29.6 % 15.0 - 45.0 % [facility] MCH (RBC) [Entitic mass] 31.1 pg 26.0 - 34.0 pg [facility] MCHC (RBC) [Mass/Vol] 34 % 30.5 - 36.0 % [facility] MCV (RBC) [Entitic vol] 91.5 fL 77.0 - 99.0 fL [facility] Monocytes (Bld) [#/Vol] 0.5 10*3/uL 0.0 - 0.9 10*3/uL [facility] Monocytes/100 WBC (Bld) 5.9 % 5.0 - 13.0 % [facility] Neutrophils (Bld) [#/Vol] 5.3 10*3/uL 1.8 - 7.5 10*3/uL [facility] Neutrophils/100 WBC (Bld) 61.5 % 38.0 - 82.0 % [facility] Nucleated RBC/100 WBC (Bld) [Ratio] 0 % [facility] Platelet mean volume (Bld) [Entitic vol] 9.7 fL 9.0 - 12.7 fL [facility] Comment on above: MPV is a calculated measurement using platelet volume ratio Platelets (Bld) [#/Vol] 263 10*3/uL 140 - 440 10*3/uL [facility] RBC (Bld) [#/Vol] 4.34 10*6/uL 3.80 - 5.20 10*6/uL [facility] WBC (Bld) [#/Vol] 8.6 10*3/uL 3.6 - 10.7 10*3/uL [facility] CBC WITH AUTO DIFFERENTIALon 12-25-2024 Basophils (Bld) [#/Vol] 0.0 10*3/uL Normal 0.0-0.2 [facility] Comment on above: Performed By: #### L [id number] ####Online Banking Specialist: TRACY PERDOMO ([phone])[facility] ([facility])[address] [place] [address] Basophils/100 WBC (Bld) 0.5 % Normal 0.0-2.0 [facility] Comment on above: Performed By: #### L [id number] ####Online Banking Specialist: TRACY PERDOMO ([phone])[facility])[address] Eosinophils (Bld) [#/Vol] 0.2 10*3/uL Normal 0.0-0.5 [facility] Comment on above: Performed By: #### L [id number] ####Online Banking Specialist: TRACY PERDOMO ([phone])[facility] ([facility])[address] Eosinophils/100 WBC (Bld) 2.2 % Normal 0.0-6.0 [facility] Comment on above: Performed By: #### L [id number] ####Online Banking Specialist: TRACY PERDOMO ([phone])[facility] ([facility])[address] Erythrocyte distribution width (RBC) [Ratio] 12.9 % Normal 11.5-15.0 [facility] Comment on above: Performed By: #### L [id number] ####Online Banking Specialist: TRACY PERDOMO ([phone])[facility] ([facility])[address] Hematocrit (Bld) [Volume fraction] 39.7 % Normal 35.0-47.0 [facility] Comment on above: Performed By: #### L [id number] ####Online Banking Specialist: TRACY PERDOMO ([phone])[facility])[address] Hemoglobin (Bld) [Mass/Vol] 13.5 g/dL Normal 11.7-16.0 [facility] Comment on above: Performed By: #### L [id number] ####Online Banking Specialist: TRACY PERDOMO ([phone])[facility] ([facility])[address] IMMATURE GRANS % 0.3 % Normal 0.0-2.0 [facility] Comment on above: Performed By: #### L [id number] ####Online Banking Specialist: TRACY PERDOMO ([phone])[facility] ([facility])[address] IMMATURE GRANS ABSOLUTE 0.0 10*3/uL Normal <0.1 [facility] Comment on above: Performed By: #### L [id number] ####Online Banking Specialist: TRACY PERDOMO ([phone])[facility] ([facility])[address] Lymphocytes (Bld) [#/Vol] 2.6 10*3/uL Normal 1.0-4.3 [facility] Comment on above: Performed By: #### L [id number] ####Online Banking Specialist: TRACY PERDOMO ([phone])[facility] ([facility])[address] Lymphocytes/100 WBC (Bld) 29.6 % Normal 15.0-45.0 [facility] Comment on above: Performed By: #### L [id number] ####Online Banking Specialist: TRACY PERDOMO ([phone])[facility] [employer] [facility] ([facility])[address] MCH (RBC) [Entitic mass] 31.1 pg Normal 26.0-34.0 [facility] Comment on above: Performed By: #### L [id number] ####Online Banking Specialist: TRACY PERDOMO ([phone])[facility] [employer] [facility] ([facility])[address] MCHC 34.0 % Normal 30.5-36.0 [facility] Comment on above: Performed By: #### L [id number] ####Online Banking Specialist: TRACY PERDOMO ([phone])[facility])[address] MCV (RBC) [Entitic vol] 91.5 fL Normal 77.0-99.0 [facility] Comment on above: Performed By: #### L [id number] ####Online Banking Specialist: TRACY PERDOMO ([phone])[facility])[address] Monocytes (Bld) [#/Vol] 0.5 10*3/uL Normal 0.0-0.9 [facility] Comment on above: Performed By: #### L [id number] ####Online Banking Specialist: TRACY PERDOMO ([phone])[facility] ([facility])[address] [place] [address] [place] Monocytes/100 WBC (Bld) 5.9 % Normal 5.0-13.0 [facility] Comment on above: Performed By: #### L [id number] ####Online Banking Specialist: TRACY PERDOMO ([phone])[facility])[address] NEUTROPHILS ABSOLUTE 5.3 10*3/uL Normal 1.8-7.5 [facility] Comment on above: Performed By: #### L [id number] ####Online Banking Specialist: TRACY PERDOMO ([phone])[facility])[address] Neutrophils/100 WBC (Bld) 61.5 % Normal 38.0-82.0 [facility] Comment on above: Performed By: #### L [id number] ####Online Banking Specialist: TRACY PERDOMO ([phone])[facility] [employer] ([facility])[address] [place] [address] [place] NRBC 0.0 /100 WBCs Normal 0.0-2.0 [facility] Comment on above: Performed By: #### L [id number] ####Online Banking Specialist: TRACY PERDOMO ([phone])[facility] ([facility])[address] Platelet mean volume (Bld) [Entitic vol] 9.7 fL Normal 9.0-12.7 [facility] Comment on above: Result Comment: MPV is a calculated measurement using platelet volume ratio Performed By: #### L [id number] ####Online Banking Specialist: TRACY PERDOMO ([phone])[facility] ([facility])[address] Platelets (Bld) [#/Vol] 263 10*3/uL Normal 140-440 [facility] Comment on above: Performed By: #### L [id number] ####Online Banking Specialist: TRACY PERDOMO ([phone])[facility] ([facility])[address] RBC (Bld) [#/Vol] 4.34 10*6/uL Normal 3.80-5.20 [facility] Comment on above: Performed By: #### L [id number] ####Online Banking Specialist: TRACY PERDOMO ([phone])[facility] [employer] ([facility])[address] WBC (Bld) [#/Vol] 8.6 10*3/uL Normal 3.6-10.7 [facility] Comment on above: Performed By: #### L [id number] ####Online Banking Specialist: TRACY PERDOMO ([phone])[facility] ([facility])[address] COMPLETE URINALYSISon 2024 AMORPHOUS CRYSTALS (#/HPF) IN URINE Many Abnormal Negative [facility] Comment on above: Performed By: #### L [id number] ####Online Banking Specialist: TRACY PERDOMO ([phone])[facility])[address] [place] [address] [place] BACTERIA (#/HPF) IN URINE Negative Normal Negative [facility] Comment on above: Performed By: #### L [id number] ####Online Banking Specialist: TRACY PERDOMO ([phone])[facility] [place] [address] [place] BILIRUBIN, TOTAL PRESENCE IN URINE Negative Normal Negative [facility] Comment on above: Performed By: #### L [id number] ####Online Banking Specialist: TRACY PERDOMO ([phone])[facility] ([facility])[address] [place] [address] [facility] Clarity (U) Turbid Abnormal Clear [facility] Comment on above: Performed By: #### L [id number] ####Online Banking Specialist: TRACY PERDOMO ([phone])[facility] [place] [address] [facility] Color (U) Yellow Normal Lt. Yellow [facility] Comment on above: Performed By: #### L [id number] ####Online Banking Specialist: TRACY PERDOMO ([phone])[facility] ([facility])[address] [place] [address] [place] GLUCOSE (MG/DL) IN URINE Normal Normal Normal (<70) [facility] Comment on above: Performed By: #### L [id number] ####Online Banking Specialist: TRACY PERDOMO ([phone])[facility] [place] [address] [place] HEMOGLOBIN PRESENCE IN URINE Negative Normal Negative [facility] Comment on above: Performed By: #### L [id number] ####Online Banking Specialist: TRACY PERDOMO ([phone])[facility] ([facility])[address] [place] [address] [facility] Ketones Ql (U) Negative Normal Negative [facility] Comment on above: Performed By: #### L [id number] ####Online Banking Specialist: TRACY PERDOMO ([phone])[facility] ([facility])[address] [place] [address] [facility] LEUKOCYTE ESTERASE PRESENCE IN URINE BY TEST STRIP Negative Normal Negative [facility] Comment on above: Performed By: #### L [id number] ####Online Banking Specialist: TRACY PERDOMO ([phone])[facility] ([facility])[address] NITRITE PRESENCE IN URINE Negative Normal Negative [facility] Comment on above: Performed By: #### L [id number] ####Online Banking Specialist: TRACY PERDOMO ([phone])[facility] ([facility])[address] pH (U) 7.0 [pH] Normal 5.0-8.0 [facility] Comment on above: Performed By: #### L [id number] ####Online Banking Specialist: TRACY PERDOMO ([phone])[facility] ([facility])[address] [place] [address] [facility] Protein (U) [Mass/Vol] 20 mg/dL Abnormal Negative [facility] Comment on above: Performed By: #### L [id number] ####Online Banking Specialist: TRACY PERDOMO ([phone])[facility] ([facility])[address] [place] [address] [place] RBC (#/HPF) IN URINE SEDIMENT Negative Normal 0-2 [facility] Comment on above: Performed By: #### L [id number] ####Online Banking Specialist: TRACY PERDOMO ([phone])[facility] CROSSINGS ([facility])[address] Specific gravity (U) [Rel density] 1.026 Normal 1.005-1.03 0 [facility] Comment on above: Performed By: #### L [id number] ####Online Banking Specialist: TRACY PERDOMO ([phone])[facility])[address] Specimen volume (U) 12 mL Normal [facility] Comment on above: Performed By: #### L [id number] ####Online Banking Specialist: TRACY PERDOMO ([phone])[facility])[address] SQUAMOUS EPITHELIAL CELLS (#/HPF) IN URINE SEDIMENT 11-25 Abnormal 3-5 [facility] Comment on above: Performed By: #### L [id number] ####Online Banking Specialist: TRACY PERDOMO ([phone])[facility])[address] UROBILINOGEN (MG/DL) IN URINE Normal Normal Normal (0-1) [facility] Comment on above: Performed By: #### L [id number] ####Online Banking Specialist: TRACY PERDOMO ([phone])[facility])[address] WBC (LEUKOCYTE) (#/HPF) IN URINE SEDIMENT Negative Normal 0-5 [facility] Comment on above: Performed By: #### L [id number] ####Online Banking Specialist: TRACY PERDOMO ([phone])[facility])[address] COMPREHENSIVE METABOLIC PANE Randy 12-25-2024 Albumin [Mass/Vol] 4.0 g/dL Normal 3.5-5.0 [facility] Comment on above: Performed By: #### L AB17, LAB99 ####Online Banking Specialist: TRACY PERDOMO ([phone])[facility] [place] [address] [place] ALP [Catalytic activity/Vol] 37 U/L Low 40-150 [facility] Comment on above: Performed By: #### L AB17, LAB99 ####Online Banking Specialist: TRACY PERDOMO ([phone])[facility] CROSSINGS ([facility])[address] [place] [address] [place] ALT [Catalytic activity/Vol] 9 U/L Normal <30 [facility] Comment on above: Performed By: #### L AB17, LAB99 ####Online Banking Specialist: TRACY PERDOMO ([phone])[facility] CROSSINGS ([facility])[address] [place] [address] [facility] Anion gap [Moles/Vol] 9 mmol/L Normal 3-13 [facility] Comment on above: Performed By: #### L AB17, LAB99 ####Online Banking Specialist: TRACY PERDOMO ([phone])[facility] CROSSINGS ([facility])[address] [place] [address] [facility] AST [Catalytic activity/Vol] 12 U/L Normal <34 [facility] Comment on above: Performed By: #### L AB17, LAB99 ####Online Banking Specialist: TRACY PERDOMO ([phone])[facility] CROSSINGS ([facility])[address] [place] [address] [facility] Bilirubin [Mass/Vol] 0.3 mg/dL Normal <1.2 [facility] Comment on above: Performed By: #### L AB17, LAB99 ####Online Banking Specialist: TRACY PERDOMO ([phone])[facility] CROSSINGS ([facility])[address] [place] [address] [facility] Calcium [Mass/Vol] 8.8 mg/dL Normal 8.4-10.2 [facility] Comment on above: Performed By: #### L AB17, LAB99 ####Online Banking Specialist: TRACY PERDOMO ([phone])[facility] ([facility])[address] [place] [address] [place] Chloride [Moles/Vol] 107 mmol/L Normal 98-107 [facility] Comment on above: Performed By: #### L AB17, LAB99 ####Online Banking Specialist: TRACY PERDOMO ([phone])[facility] ([facility])[address] [place] [address] [place] CO2 [Moles/Vol] 21 mmol/L Low 22-29 [facility] Comment on above: Performed By: #### L AB17, LAB99 ####Online Banking Specialist: TRACY PERDOMO ([phone])[facility] ([facility])[address] [place] [address] [place] Creatinine [Mass/Vol] 0.65 mg/dL Normal 0.57-1.11 [facility] Comment on above: Performed By: #### L AB17, LAB99 ####Online Banking Specialist: TRACY PERDOMO ([phone])[facility] ([facility])[address] [place] [id number] [facility] GLOMERULAR FILTRATION RATE ML/MIN/1.73 SQ M.PREDICTED >90.0 Normal >60.0 [facility] Comment on above: Result Comment: Calc ulation based on the Chronic Kidney Disease Epidemiology Collaboration (CKD-EPI) equation refit without adjustment for race Performed By: #### L AB17, LAB99 ####Online Banking Specialist: TRACY PERDOMO ([phone])[facility] ([facility])[address] [place] [address] [place] Glucose [Mass/Vol] 95 mg/dL Normal 74-100 [facility] Comment on above: Performed By: #### L AB17, LAB99 ####Online Banking Specialist: TRACY PERDOMO ([phone])[facility] ([facility])[address] [place] [address] [place] Potassium [Moles/Vol] 4.2 mmol/L Normal 3.5-5.1 [facility] Comment on above: Result Comment: [facility] potassium values may be up to 0.5 mmol/L lower than serum values. Performed By: #### L AB17, LAB99 ####Online Banking Specialist: TRACY PERDOMO ([phone])[facility] ([facility])[address] [place] [address] [facility] Protein [Mass/Vol] 6.8 g/dL Normal 6.4-8.3 [facility] Comment on above: Performed By: #### L AB17, LAB99 ####Online Banking Specialist: TRACY PERDOMO ([phone])[facility] ([facility])[address] [place] [address] [facility] Sodium [Moles/Vol] 137 mmol/L Normal 136-145 [facility] Comment on above: Performed By: #### L AB17, LAB99 ####Online Banking Specialist: TRACY PERDOMO ([phone])[facility] ([facility])[address] [place] [address] [facility] Urea nitrogen [Mass/Vol] 10 mg/dL Normal 8-21 [facility] Comment on above: Performed By: #### L AB17, LAB99 ####Online Banking Specialist: TRACY PERDOMO ([phone])[facility] ([facility])[address] [place] [id number] [facility] CT ABDOMEN PELVIS W CONTRAST on 12-25-2024 CT ABDOMEN PELVIS W CONTRAST Normal [facility] CT Abdomen and Pelvis W cont rast Oscar 12-25-2024 1. Continued decreas e in size of the abdominal wall collections. Collection of the right is almost resolved but a collection of the left transverse thickness of up to 0.6 cm 2. Indeterminate left renal lesions again noted. The lesion in the upper pole has increased in size to 1.8 cm since 14 months ago at which time it measured 1.2 cm. Again, MRI without and with contrast is recommended 3. Nonobstructing right renal calculus Report Dictated on Electronically Signed By: Jose Carlson MD Electronically Signed Date/Time: 12/25/2024 7:18 PM [facility] RADIOLOGY SYSTEM Patient Name: MEL WALL : 1985 [facility]#: [id number] Exam Date/Time: 12/25/2024 18:43 Procedure: CT ABDOMEN PELVIS W CONTRAST Ordering Provider: CURRY MARANDA Reason For Exam: Abdominal pain, acute, nonlocalized CT ABDOMEN AND PELVIS WITH CONTRAST CLINICAL INDICATION: Abdominal pain, acute, nonlocalized. TECHNIQUE: Transaxial sequence through the abdomen and pelvis with 3 mm reconstruction with dynamic intravenous infusion of contrast media. No oral contrast was administered. Coronal and sagittal reconstructions included. Dose reduction was employed with automated exposure control. COMPARISON: One month ago and prior dating to 09/13/2023 FINDINGS: Exam quality: Examination is suboptimal for evaluation of the gastrointestinal tract due to lack of oral contrast Chest base: Normal. Liver: Normal size and contour. No focal lesion. Biliary tree: Normal caliber. Gallbladder surgically absent Spleen: Normal. Adrenals: Normal. Pancreas: Normal. Kidneys: Indeterminate lesion measuring approximately 1.8 cm projects posteriorly from the left kidney. This has increased in size from the earliest CT from 09/13/2023 at which time it measured 1.2 cm. Similar lesion projects posteriorly from the lower pole on the left measuring up to 1.5 cm. This remains unchanged. A fluid attenuation cyst in the right kidney measuring 1.9 cm requires no follow-up. Nonobstructing calculus in the lower pole the right measures 0.2 cm. No calculus on the left. No hydronephrosis. Free fluid: None. Retroperitoneal/mesenteric lymphadenopathy: None. Aorta: Normal caliber. Bowel: Anastomosis involving small bowel in the left midabdomen. No significant bowel dilatation. Retained feces particularly in the rectum. Abdominal wall: Surgical changes within the abdominal wall. Previously noted collection within the anterior abdominal wall is almost completely resolved on the right decreased on the left with thickness of as much as 0.6 cm Pelvic organs/viscera: Tubal ligation clips are noted. No pelvic mass. Pelvic lymphadenopathy: None. Osseous structures: Solitary sclerotic lesion again noted at the T9 level measuring 1.4 cm, likely a benign finding without change. [facility] RADIOLOGY SYSTEM Jose Carlson MD - 12/25/2024 Patient Name: MEL WALL : 1985 [facility]#: [id number] Exam Date/Time: 12/25/2024 18:43 Procedure: CT ABDOMEN PELVIS W CONTRAST Ordering Provider: CURRY MARANDA Reason For Exam: Abdominal pain, acute, nonlocalized CT ABDOMEN AND PELVIS WITH CONTRAST CLINICAL INDICATION: Abdominal pain, acute, nonlocalized. TECHNIQUE: Transaxial sequence through the abdomen and pelvis with 3 mm reconstruction with dynamic intravenous infusion of contrast media. No oral contrast was administered. Coronal and sagittal reconstructions included. Dose reduction was employed with automated exposure control. COMPARISON: One month ago and prior dating to 09/13/2023 FINDINGS: Exam quality: Examination is suboptimal for evaluation of the gastrointestinal tract due to lack of oral contrast Chest base: Normal. Liver: Normal size and contour. No focal lesion. Biliary tree: Normal caliber. Gallbladder surgically absent Spleen: Normal. Adrenals: Normal. Pancreas: Normal. Kidneys: Indeterminate lesion measuring approximately 1.8 cm projects posteriorly from the left kidney. This has increased in size from the earliest CT from 09/13/2023 at which time it measured 1.2 cm. Similar lesion projects posteriorly from the lower pole on the left measuring up to 1.5 cm. This remains unchanged. A fluid attenuation cyst in the right kidney measuring 1.9 cm requires no follow-up. Nonobstructing calculus in the lower pole the right measures 0.2 cm. No calculus on the left. No hydronephrosis. Free fluid: None. Retroperitoneal/mesenteric lymphadenopathy: None. Aorta: Normal caliber. Bowel: Anastomosis involving small bowel in the left midabdomen. No significant bowel dilatation. Retained feces particularly in the rectum. Abdominal wall: Surgical changes within the abdominal wall. Previously noted collection within the anterior abdominal wall is almost completely resolved on the right decreased on the left with thickness of as much as 0.6 cm Pelvic organs/viscera: Tubal ligation clips are noted. No pelvic mass. Pelvic lymphadenopathy: None. Osseous structures: Solitary sclerotic lesion again noted at the T9 level measuring 1.4 cm, likely a benign finding without change. IMPRESSION: 1. Continued decrease in size of the abdominal wall collections. Collection of the right is almost resolved but a collection of the left transverse thickness of up to 0.6 cm 2. Indeterminate left renal lesions again noted. The lesion in the upper pole has increased in size to 1.8 cm since 14 months ago at which time it measured 1.2 cm. Again, MRI without and with contrast is recommended 3. Nonobstructing right renal calculus Report Dictated on Electronically Signed By: Jose Carlson MD Electronically Signed Date/Time: 12/25/2024 7:18 PM EDT [facility] Radiology Study observation (narrative) [facility] CT Abdomen and Pelvis W cont rast IVOrdered By: Jose Carlson on 12-25-2024 [facility] [employer] Work Phone: Comprehensive metabolic 1998 panelon 12-25-2024 Albumin [Mass/Vol] 4 g/dL 3.5 - 5.0 g/dL [facility] ALP [Catalytic activity/Vol] 37 U/L Low 40 - 150 U/L [facility] ALT [Catalytic activity/Vol] 9 U/L NINF - 30 U/L [facility] Anion gap [Moles/Vol] 9 mmol/L 3 - 13 mmol/L [facility] AST [Catalytic activity/Vol] 12 [facility] Bilirubin [Mass/Vol] 0.3 mg/dL [facility] mg/dL [facility] Calcium [Mass/Vol] 8.8 mg/dL 8.4 - 10. 2 mg/dL [facility] Chloride [Moles/Vol] 107 mmol/L 98 - 10 7 mmol/L [facility] CO2 [Moles/Vol] 21 mmol/L Low 22 - 29 mmol/L [facility] Creatinine [Mass/Vol] 0.65 mg/dL 0.57 - 1.11 mg/dL [facility] GFR/1.73 sq M.predicted (S/P/Bld) [Vol rate/Area] - PINF [facility] Comment on above: Calculation based on the Chronic Kidney Disease Epidemiology Collaboration (CKD-EPI) equation refit without adjustment for race Glucose [Mass/Vol] 95 mg/dL 74 - 100 mg/dL [facility] Interpretation and review of laboratory results Abnormal [facility] Potassium [Moles/Vol] 4.2 mmol/L 3.5 - 5.1 mmol/L [facility] Comment on above: Plasma potassium kelsy ues may be up to 0.5 mmol/L lower than serum values. Protein [Mass/Vol] 6.8 g/dL 6.4 - 8.3 g/dL [facility] Sodium [Moles/Vol] 137 mmol/L 136 - 145 mmol/L [facility] Urea nitrogen [Mass/Vol] 10 mg/dL 8 - 21 mg/dL [facility] ED Provider Noteon ED Provider Note Normal [facility] HCG QUALITATIVE URINEon 12-08 Beta HCG ( test) Ql (U) Negative Normal Negative [facility] Comment on above: Result Comment: Cathy robles note: Very dilute urine specimens, as indicated by a low specific gravity, may not contain loan representative levels of hCG. If is still suspected, a first morning urine specimen should be collected 48 hours later and tested.ORDER COMMENTS: is the most common reason for HCG in urine, although choriocarcinoma, hydatidiform mole, and certain nontrophoblastic malignancies also result in detectable urinary HCG levels. Sensitivity = 20mIU/mL. Performed By: #### L [id number] ####Online Banking Specialist: TRACY PERDOMO ([phone])[facility] ([facility])[address] LACTIC ACID WITH REFLEXon Lactate [Moles/Vol] 0.8 mmol/L Normal 0.5-2.2 [facility] Comment on above: Performed By: #### L [id number] ####Online Banking Specialist: TRACY PERDOMO ([phone])[facility] ([facility])[address] [place] [address] [facility] LIPASEon 12-25-2024 Lipase [Catalytic activity/Vol] 43 U/L Normal <55 [facility] Comment on above: Performed By: #### L AB17, LAB99 ####Online Banking Specialist: TRACY PERDOMO ([phone])[facility] ([facility])[address] [place] [address] [facility] Laboratory - Chemistry and C hemistry - challengeon 12-25-2024 Beta HCG ( test) Ql Negative Negative [facility] Comment on above: Please note: Very di lute urine specimens, as indicated by a low specific gravity, may not contain loan representative levels of hCG. If is still suspected, a first morning urine specimen should be collected 48 hours later and tested. Beta HCG ( test) Ql (U) is the most common reason for HCG in urine, although choriocarcinoma, hydatidiform mole, and certain nontrophoblastic malignancies also result in detectable urinary HCG levels. Sensitivity = 20mIU/mL. [facility] Lipase [Catalytic activity/Vol] 43 U/L NINF - 55 U/L [facility] Lactate [Moles/Vol] 0.8 mmol/L 0.5 - 2. 2 mmol/L [facility] Lipase [Catalytic activity/V ol]on 12-25-2024 Interpretation and review of laboratory results Normal [facility] No Panel Informationon 12-25 [facility] Interpretation and review of laboratory results Normal [facility] Urinalysis complete panel (U )Ordered By: Faisal Pavon on 12-25-2024 Amorphous Crystals, Urine Many Abnormal Negative /HPF [facility] Bacteria LM.HPF (Urine sed) [#/Area] Negative Negative /HPF [facility] Bilirubin Ql (U) Negative Negative mg/dL [facility] Clarity (U) Turbid Abnormal Clear [facility] Color (U) Yellow Lt. Yellow [facility] Epithelial cells.squamous LM.HPF (Urine sed) [#/Area] 11-25 Abnormal [facility] Glucose Ql (U) Normal Normal (<70) mg/dL [facility] Hemoglobin Ql (U) Negative Negative mg/dL [facility] Interpretation and review of laboratory results Abnormal [facility] Ketones (U) [Mass/Vol] Negative Negative mg/dL [facility] Leukocyte esterase Test strip Ql (U) Negative Negative [place]/uL [facility] Nitrite Ql (U) Negative Negative [facility] pH (U) 7.0 [pH] 5.0 - 8.0 pH [facility] Protein (U) [Mass/Vol] 20 mg/dL Abnormal Negative [facility] RBC LM.HPF (Urine sed) [#/Area] Negative [facility] Specific gravity (U) [Rel density] 1.026 1.005 - 1.030 [facility] Urobilinogen (U) [Mass/Vol] Normal Normal (0-1) mg/dL [facility] Volume, Urine 12 mL [facility] WBC LM.HPF (Urine sed) [#/Area] Negative [facility] 36on 11-23-2024 36 Normal [facility] CBC W Auto Differential pane l (Bld)on 11-23-2024 Basophils (Bld) [#/Vol] 0 10*3/uL 0.0 - 0.2 10*3/uL [facility] Basophils/100 WBC (Bld) 0.4 % 0.0 - 2.0 % [facility] Eosinophils (Bld) [#/Vol] 0.2 10*3/uL 0.0 - 0.5 10*3/uL [facility] Eosinophils/100 WBC (Bld) 2.3 % 0.0 - 6.0 % [facility] Erythrocyte distribution width (RBC) [Ratio] 12.4 % 11.5 - 15.0 % [facility] Hematocrit (Bld) [Volume fraction] 40.5 % 35.0 - 47.0 % [facility] Hemoglobin (Bld) [Mass/Vol] 13.6 g/dL 11.7 - 16.0 g/dL [facility] Immature granulocytes (Bld) [#/Vol] 0 10*3/uL NINF - 0.1 10*3/uL [facility] Immature granulocytes/100 WBC (Bld) 0.3 % 0.0 - 2.0 % [facility] Interpretation and review of laboratory results Normal [facility] Lymphocytes (Bld) [#/Vol] 1.5 10*3/uL 1.0 - 4.3 10*3/uL [facility] Lymphocytes/100 WBC (Bld) 21.4 % 15.0 - 45.0 % [facility] MCH (RBC) [Entitic mass] 30.7 pg 26.0 - 34.0 pg [facility] MCHC (RBC) [Mass/Vol] 33.6 % 30.5 - 36.0 % [facility] MCV (RBC) [Entitic vol] 91.4 fL 77.0 - 99.0 fL [facility] Monocytes (Bld) [#/Vol] 0.5 10*3/uL 0.0 - 0.9 10*3/uL [facility] Monocytes/100 WBC (Bld) 7.4 % 5.0 - 13.0 % [facility] Neutrophils (Bld) [#/Vol] 4.8 10*3/uL 1.8 - 7.5 10*3/uL [facility] Neutrophils/100 WBC (Bld) 68.2 % 38.0 - 82.0 % [facility] Nucleated RBC/100 WBC (Bld) [Ratio] 0 % [facility] Platelet mean volume (Bld) [Entitic vol] 9.2 fL 9.0 - 12.7 fL [facility] Comment on above: MPV is a calculated measurement using platelet volume ratio Platelets (Bld) [#/Vol] 256 10*3/uL 140 - 440 10*3/uL [facility] RBC (Bld) [#/Vol] 4.43 10*6/uL 3.80 - 5.20 10*6/uL [facility] WBC (Bld) [#/Vol] 7 10*3/uL 3.6 - 10.7 10*3/uL [facility] CBC WITH AUTO DIFFERENTIALon 11-23-2024 Basophils (Bld) [#/Vol] 0.0 10*3/uL Normal 0.0-0.2 [facility] Comment on above: Performed By: #### L [id number] ####Online Banking Specialist: TRACY PERDOMO ([phone])[facility] ([facility])[address] [place] [address] Basophils/100 WBC (Bld) 0.4 % Normal 0.0-2.0 [facility] Comment on above: Performed By: #### L [id number] ####Online Banking Specialist: TRACY PERDOMO ([phone])[facility] [employer] ([facility])[address] [place] [address] Eosinophils (Bld) [#/Vol] 0.2 10*3/uL Normal 0.0-0.5 [facility] Comment on above: Performed By: #### L [id number] ####Online Banking Specialist: TRACY [phone])[facility] ([facility])[address] [address] [facility] Eosinophils/100 WBC (Bld) 2.3 % Normal 0.0-6.0 [facility] Comment on above: Performed By: #### L [id number] ####Online Banking Specialist: TRACY VEEMARIELENA ([phone])[facility] ([facility])[address] Erythrocyte distribution width (RBC) [Ratio] 12.4 % Normal 11.5-15.0 [facility] Comment on above: Performed By: #### L [id number] ####Online Banking Specialist: TRACY VEEMARIELENA ([phone])[facility] ([facility])[address] Hematocrit (Bld) [Volume fraction] 40.5 % Normal 35.0-47.0 [facility] Comment on above: Performed By: #### L [id number] ####Online Banking Specialist: TRACY PERDOMO ([phone])[facility] ([facility])[address] Hemoglobin (Bld) [Mass/Vol] 13.6 g/dL Normal 11.7-16.0 [facility] Comment on above: Performed By: #### L [id number] ####Online Banking Specialist: TRACY PERDOMO ([phone])[facility] ([facility])[address] IMMATURE GRANS % 0.3 % Normal 0.0-2.0 [facility] Comment on above: Performed By: #### L [id number] ####Online Banking Specialist: TRACY PERDOMO ([phone])[facility] ([facility])[address] IMMATURE GRANS ABSOLUTE 0.0 10*3/uL Normal <0.1 [facility] Comment on above: Performed By: #### L [id number] ####Online Banking Specialist: TRACY PERDOMO ([phone])[facility])[address] Lymphocytes (Bld) [#/Vol] 1.5 10*3/uL Normal 1.0-4.3 [facility] Comment on above: Performed By: #### L [id number] ####Online Banking Specialist: TRACY PERDOMO ([phone])[facility] ([facility])[address] Lymphocytes/100 WBC (Bld) 21.4 % Normal 15.0-45.0 [facility] Comment on above: Performed By: #### L [id number] ####Online Banking Specialist: TRACY PERDOMO ([phone])[facility] ([facility])[address] MCH (RBC) [Entitic mass] 30.7 pg Normal 26.0-34.0 [facility] Comment on above: Performed By: #### L [id number] ####Online Banking Specialist: TRACY PERDOMO ([phone])[facility])[address] MCHC 33.6 % Normal 30.5-36.0 [facility] Comment on above: Performed By: #### L [id number] ####Online Banking Specialist: TRACY PERDOMO ([phone])[facility])[address] MCV (RBC) [Entitic vol] 91.4 fL Normal 77.0-99.0 [facility] Comment on above: Performed By: #### L [id number] ####Online Banking Specialist: TRACY PERDOMO ([phone])[facility] ([facility])[address] [id number] Monocytes (Bld) [#/Vol] 0.5 10*3/uL Normal 0.0-0.9 [facility] Comment on above: Performed By: #### L [id number] ####Online Banking Specialist: TRACY PERDOMO ([phone])[facility])[address] [place] [address] [place] Monocytes/100 WBC (Bld) 7.4 % Normal 5.0-13.0 [facility] Comment on above: Performed By: #### L [id number] ####Online Banking Specialist: TRACY PERDOMO ([phone])[facility] ([facility])[address] NEUTROPHILS ABSOLUTE 4.8 10*3/uL Normal 1.8-7.5 [facility] Comment on above: Performed By: #### L [id number] ####Online Banking Specialist: TRACY PERDOMO ([phone])[facility])[address] Neutrophils/100 WBC (Bld) 68.2 % Normal 38.0-82.0 [facility] Comment on above: Performed By: #### L [id number] ####Online Banking Specialist: TRACY PERDOMO ([phone])[facility] ([facility])[address] [place] [address] [facility] NRBC 0.0 /100 WBCs Normal 0.0-2.0 [facility] Comment on above: Performed By: #### L [id number] ####Online Banking Specialist: TRACY PERDOMO ([phone])[facility] ([facility])[address] [address] [facility] Platelet mean volume (Bld) [Entitic vol] 9.2 fL Normal 9.0-12.7 [facility] Comment on above: Result Comment: MPV is a calculated measurement using platelet volume ratio Performed By: #### L [id number] ####Online Banking Specialist: TRACY PERDOMO ([phone])[facility])[address] Platelets (Bld) [#/Vol] 256 10*3/uL Normal 140-440 [facility] Comment on above: Performed By: #### L [id number] ####Online Banking Specialist: TRACY PERDOMO ([phone])[facility])[address] RBC (Bld) [#/Vol] 4.43 10*6/uL Normal 3.80-5.20 [facility] Comment on above: Performed By: #### L [id number] ####Online Banking Specialist: TRACY PERDOMO ([phone])[facility] ([facility])[address] WBC (Bld) [#/Vol] 7.0 10*3/uL Normal 3.6-10.7 [facility] Comment on above: Performed By: #### L [id number] ####Online Banking Specialist: TRACY PERDOMO ([phone])[facility])[address] COMPREHENSIVE METABOLIC PANE Randy 11-23-2024 Albumin [Mass/Vol] 3.9 g/dL Normal 3.5-5.0 [facility] Comment on above: Performed By: #### L AB17, LAB99 ####Online Banking Specialist: TRACY PERDOMO ([phone])[facility])[address] ALP [Catalytic activity/Vol] 42 U/L Normal 40-150 [facility] Comment on above: Performed By: #### L AB17, LAB99 ####Online Banking Specialist: TRACY PERDOMO ([phone])[facility] ([facility])[address] [place] [address] [place] ALT [Catalytic activity/Vol] 9 U/L Normal <30 [facility] Comment on above: Performed By: #### L AB17, LAB99 ####Online Banking Specialist: TRACY PERDOMO ([phone])[facility])[address] [place] [address] [facility] Anion gap [Moles/Vol] 7 mmol/L Normal 3-13 [facility] Comment on above: Performed By: #### L AB17, LAB99 ####Online Banking Specialist: TRACY PERDOMO ([phone])[facility] ([facility])[address] [place] [address] [facility] AST [Catalytic activity/Vol] 12 U/L Normal <34 [facility] Comment on above: Performed By: #### L AB17, LAB99 ####Online Banking Specialist: TRACY PERDOMO ([phone])[facility] ([facility])[address] [place] [address] [place] Bilirubin [Mass/Vol] 0.2 mg/dL Normal <1.2 [facility] Comment on above: Performed By: #### L AB17, LAB99 ####Online Banking Specialist: TRACY PERDOMO ([phone])[facility] ([facility])[address] [place] [address] [place] Calcium [Mass/Vol] 8.9 mg/dL Normal 8.4-10.2 [facility] Comment on above: Performed By: #### L AB17, LAB99 ####Online Banking Specialist: TRACY PERDOMO ([phone])[facility])[address] [place] [address] [place] Chloride [Moles/Vol] 110 mmol/L High 98-107 [facility] Comment on above: Performed By: #### L AB17, LAB99 ####Online Banking Specialist: TRACY PERDOMO ([phone])[facility] ([facility])[address] [place] [address] [place] CO2 [Moles/Vol] 22 mmol/L Normal 22-29 [facility] Comment on above: Performed By: #### L AB17, LAB99 ####Online Banking Specialist: TRACY PERDOMO ([phone])[facility] ([facility])[address] [place] [address] [place] Creatinine [Mass/Vol] 0.65 mg/dL Normal 0.57-1.11 [facility] Comment on above: Performed By: #### L AB17, LAB99 ####Online Banking Specialist: TRACY PERDOMO ([phone])[facility] ([facility])[address] [place] [address] [place] GLOMERULAR FILTRATION RATE ML/MIN/1.73 SQ M.PREDICTED >90.0 Normal >60.0 [facility] Comment on above: Result Comment: Calc ulation based on the Chronic Kidney Disease Epidemiology Collaboration (CKD-EPI) equation refit without adjustment for race Performed By: #### L AB17, LAB99 ####Online Banking Specialist: TRACY PERDOMO ([phone])[facility] ([facility])[address] [place] [address] [place] Glucose [Mass/Vol] 103 mg/dL High 74-100 [facility] Comment on above: Performed By: #### L AB17, LAB99 ####Online Banking Specialist: TRACY PERDOMO ([phone])[facility] ([facility])[address] [place] [address] [place] Potassium [Moles/Vol] 4.3 mmol/L Normal 3.5-5.1 [facility] Comment on above: Result Comment: [facility] potassium values may be up to 0.5 mmol/L lower than serum values. Performed By: #### L AB17, LAB99 ####Online Banking Specialist: TRACY PERDOMO ([phone])[facility] ([facility])[address] [address] [facility] Protein [Mass/Vol] 6.9 g/dL Normal 6.4-8.3 [facility] Comment on above: Performed By: #### L AB17, LAB99 ####Online Banking Specialist: TRACY LEANNE ([phone])[facility] ([facility])[address] [address] [facility] Sodium [Moles/Vol] 139 mmol/L Normal 136-145 [facility] Comment on above: Performed By: #### L AB17, LAB99 ####Online Banking Specialist: TRACY LLANESBOBBY ([phone])[facility] ([facility])[address] Urea nitrogen [Mass/Vol] 14 mg/dL Normal 8-21 [facility] Comment on above: Performed By: #### L AB17, LAB99 ####Online Banking Specialist: TRACY LLANESBOBBY ([phone])[facility] ([facility])[address] ABDOMEN PELVIS W CONTRAST on 11-23-2024 CT ABDOMEN PELVIS W CONTRAST Normal [facility] CT Abdomen and Pelvis W cont rast Oscar 11-23-2024 1. Loculated low-den sity fluid collection in the ventral abdominal subcutaneous tissues has slightly decreased in size since prior. This is favored to represent a postoperative seroma. 2. Indeterminant left renal cortical lesions, unchanged. Recommend follow-up with nonemergent renal mass protocol MRI. Report Dictated on Electronically Signed By: Zenaida Vargas MD Electronically Signed Date/Time: 11/23/2024 9:08 AM [facility] [employer] [facility] 1985 [id number] Exam Date/Time: 11/23/2024 08:39 Procedure: CT ABDOMEN PELVIS W CONTRAST Ordering Provider: PLUMMER MARK Reason For Exam: Abdominal pain, post-op EXAM: CT Abdomen and Pelvis With Intravenous Contrast CLINICAL INDICATION: Abdominal pain, post-op. Incisional pain. Status post incisional hernia repair and appendectomy. TECHNIQUE: Axial computed tomography images of the abdomen and pelvis with intravenous contrast. This CT exam was performed using one or more of the following dose reduction techniques: automated exposure control, adjustment of the mA and/or kV according to patient size, and/or use of iterative reconstruction technique. COMPARISON: CT abdomen pelvis from 09/02/2024 CT guided fluid drainage from 10/08/2024. FINDINGS: LUNG BASES: Unremarkable. No mass. No consolidation. ABDOMEN: LIVER: Unremarkable. No mass. GALLBLADDER AND BILE DUCTS: Cholecystectomy. No significant biliary ductal dilatation. PANCREAS: Unremarkable. No mass. No ductal dilation. SPLEEN: Unremarkable. No splenomegaly. ADRENALS: Unremarkable. No mass. KIDNEYS AND URETERS: Simple right renal cortical cyst, measuring 1.9 cm. Intermediate density exophytic lateral lower pole left renal cortical lesion, measuring 1.8 cm. Intermediate density exophytic posterior upper pole left renal cortical lesion, measuring 1.4 cm. These lesions are indeterminate but appear essentially unchanged. 1 mm nonobstructing left renal calyceal calculus. No hydronephrosis. STOMACH AND BOWEL: Suture material associated with the small bowel. No bowel obstruction. PELVIS: APPENDIX: Status post appendectomy. BLADDER: Unremarkable. No mass. REPRODUCTIVE: Bilateral tubal ligation clips. ABDOMEN and PELVIS: INTRAPERITONEAL SPACE: Unremarkable. No free air. No significant fluid collection. BONES/JOINTS: Degenerative change of the spine. T9 vertebral body bone island. No acute fracture. SOFT TISSUES: Redemonstration of a loculated fluid collection within the ventral abdominal subcutaneous tissues. The previously visualized drainage catheter is no longer identified. This collection measures up to 2.3 cm in AP thickness (previously 2.7 cm). Collection extends from just below the level of the umbilicus to the level of the right 10th anterior rib, unchanged. There is no gas within this collection. Adjacent ventral subcutaneous edema. Postsurgical change of the ventral abdominal wall from hernia repair. Apparent removal of the surgical mesh. No recurrent hernia. VASCULATURE: Unremarkable. No abdominal aortic aneurysm. LYMPH NODES: Unremarkable. No enlarged lymph nodes. [facility] Zenaida Vargas M D - 11/23/2024 Patient Name: MEL WALL DOB: 1985 [facility]#: [id number] Exam Date/Time: 11/23/2024 08:39 Procedure: CT ABDOMEN PELVIS W CONTRAST Ordering Provider: PLUMMER MARK Reason For Exam: Abdominal pain, post-op EXAM: CT Abdomen and Pelvis With Intravenous Contrast CLINICAL INDICATION: Abdominal pain, post-op. Incisional pain. Status post incisional hernia repair and appendectomy. TECHNIQUE: Axial computed tomography images of the abdomen and pelvis with intravenous contrast. This CT exam was performed using one or more of the following dose reduction techniques: automated exposure control, adjustment of the mA and/or kV according to patient size, and/or use of iterative reconstruction technique. COMPARISON: CT abdomen pelvis from 09/02/2024 CT guided fluid drainage from 10/08/2024. FINDINGS: LUNG BASES: Unremarkable. No mass. No consolidation. ABDOMEN: LIVER: Unremarkable. No mass. GALLBLADDER AND BILE DUCTS: Cholecystectomy. No significant biliary ductal dilatation. PANCREAS: Unremarkable. No mass. No ductal dilation. SPLEEN: Unremarkable. No splenomegaly. ADRENALS: Unremarkable. No mass. KIDNEYS AND URETERS: Simple right renal cortical cyst, measuring 1.9 cm. Intermediate density exophytic lateral lower pole left renal cortical lesion, measuring 1.8 cm. Intermediate density exophytic posterior upper pole left renal cortical lesion, measuring 1.4 cm. These lesions are indeterminate but appear essentially unchanged. 1 mm nonobstructing left renal calyceal calculus. No hydronephrosis. STOMACH AND BOWEL: Suture material associated with the small bowel. No bowel obstruction. PELVIS: APPENDIX: Status post appendectomy. BLADDER: Unremarkable. No mass. REPRODUCTIVE: Bilateral tubal ligation clips. ABDOMEN and PELVIS: INTRAPERITONEAL SPACE: Unremarkable. No free air. No significant fluid collection. BONES/JOINTS: Degenerative change of the spine. T9 vertebral body bone island. No acute fracture. SOFT TISSUES: Redemonstration of a loculated fluid collection within the ventral abdominal subcutaneous tissues. The previously visualized drainage catheter is no longer identified. This collection measures up to 2.3 cm in AP thickness (previously 2.7 cm). Collection extends from just below the level of the umbilicus to the level of the right 10th anterior rib, unchanged. There is no gas within this collection. Adjacent ventral subcutaneous edema. Postsurgical change of the ventral abdominal wall from hernia repair. Apparent removal of the surgical mesh. No recurrent hernia. VASCULATURE: Unremarkable. No abdominal aortic aneurysm. LYMPH NODES: Unremarkable. No enlarged lymph nodes. IMPRESSION: 1. Loculated low-density fluid collection in the ventral abdominal subcutaneous tissues has slightly decreased in size since prior. This is favored to represent a postoperative seroma. 2. Indeterminant left renal cortical lesions, unchanged. Recommend follow-up with nonemergent renal mass protocol MRI. Report Dictated on Electronically Signed By: Zenaida Vargas MD Electronically Signed Date/Time: 11/23/2024 9:08 AM EST [facility] [employer] Radiology Study observation (narrative) [facility] [employer] CT Abdomen and Pelvis W cont rast IVOrdered By: Zenaida Vargas on 11-23-2024 [facility] [employer] Work Phone: Comprehensive metabolic 1998 panelon 11-23-2024 Albumin [Mass/Vol] 3.9 g/dL 3.5 - 5.0 g/dL [facility] [employer] ALP [Catalytic activity/Vol] 42 U/L 40 - 150 U/L [facility] [employer] ALT [Catalytic activity/Vol] 9 U/L NINF - 30 U/L [facility] [employer] Anion gap [Moles/Vol] 7 mmol/L 3 - 13 mmol/L [facility] [employer] AST [Catalytic activity/Vol] 12 U/L NINF - 34 U/L [facility] [employer] Bilirubin [Mass/Vol] 0.2 mg[facility] [employer] Calcium [Mass/Vol] 8.9 mg/dL 8.4 - 10. 2 mg/dL [facility] [employer] Chloride [Moles/Vol] 110 mmol/L High 98 - 10 7 mmol/L [facility] [employer] CO2 [Moles/Vol] 22 mmol/L 22 - 29 mmol/L [facility] [employer] Creatinine [Mass/Vol] 0.65 mg/dL 0.57 - 1.11 mg/dL [facility] [employer] GFR/1.73 sq M.predicted (S/P/Bld) [Vol rate/Area] - PINF [facility] Comment on above: Calculation based on the Chronic Kidney Disease Epidemiology Collaboration (CKD-EPI) equation refit without adjustment for race Glucose [Mass/Vol] 103 mg/dL High 74 - 100 mg/dL [facility] Potassium [Moles/Vol] 4.3 mmol/L 3.5 - 5.1 mmol/L [facility] Comment on above: Plasma potassium kelsy ues may be up to 0.5 mmol/L lower than serum values. Protein [Mass/Vol] 6.9 g/dL 6.4 - 8.3 g/dL [facility] Sodium [Moles/Vol] 139 mmol/L 136 - 145 mmol/L [facility] Urea nitrogen [Mass/Vol] 14 mg/dL 8 - 21 mg/dL [facility] ED Nursing Noteon 11-23-2024 ED Nursing Note Pt voices understand ing to go to the pharmacy listed on discharge paperwork to pickup driver prescriptions listed on paperwork. Pt verbalizes understanding to take as prescribed and if has any questions to speak with pharmacist prior to leaving pharmacy. Normal [facility] ED Provider Noteon ED Provider Note Normal [facility] LIPASEon 11-23-2024 Lipase [Catalytic activity/Vol] 101 U/L High <55 [facility] Comment on above: Performed By: #### L AB17, LAB99 ####Online Banking Specialist: TRACY PERDOMO ([phone])[facility] ([facility])[address] [place] [address] Laboratory - Chemistry and C hemistry - challengeon 11-23-2024 Lipase [Catalytic activity/Vol] 101 U/L High NINF - 55 U/L [facility] No Panel Informationon 11-23 Interpretation and review of laboratory results Abnormal [facility] US GUIDED PERCUTANEOUS PERIT PHILIP OR RETROPERITONEAL FLUID COLLECTION DRAINAGEon 11-22-2024 US GUIDED PERCUTANEOUS PERITONEAL OR RETROPERITONEAL FLUID COLLECTION DRAINAGE Normal [facility] US Guidance for biopsy of Un specified body regionon 11-22-2024 Trace residual seroma following doxycycline sclerosing. Drain previously fell out at patient's home. No intervention at this time. Patient has scheduled follow-up with her surgeon in the coming week. Report Dictated on Electronically Signed By: Sybil Kumar PA-C Electronically Signed Date/Time: 11/22/2024 7:42 AM [facility] [employer] Patient Name: MEL WALL : 1985 Exam Date/Time: 11/21/2024 13:04 Procedure: US GUIDED PERCUTANEOUS PERITONEAL OR RETROPERITONEAL FLUID COLLECTION DRAINAGE Ordering Provider: KUMAR TAYLOR Reason For Exam: postop seroma PROCEDURE: Fluid collection aspiration Procedural Personnel Physician Junior Financial Analyst: Sybil Kumar PA-C Attending physician(s): Petr Blackburn M.D. Attending physician was available in the department if needed. Indication: Postoperative seroma Additional clinical history: Drain was placed with a prior and doxycycline was instilled for sclerosing. Drain was accidentally removed by the patient following drainage of doxycycline. Complications: No immediate complications. [facility] Sybil Kumar PA-C - 11/22/2024 Patient Name: MEL WALL : 1985 Exam Date/Time: 11/21/2024 13:04 Procedure: US GUIDED PERCUTANEOUS PERITONEAL OR RETROPERITONEAL FLUID COLLECTION DRAINAGE Ordering Provider: KUMAR TAYLOR Reason For Exam: postop seroma PROCEDURE: Fluid collection aspiration Procedural Personnel Physician Junior Financial Analyst: Sybil Kumar PA-C Attending physician(s): Petr Blackburn M.D. Attending physician was available in the department if needed. Indication: Postoperative seroma Additional clinical history: Drain was placed with a prior and doxycycline was instilled for sclerosing. Drain was accidentally removed by the patient following drainage of doxycycline. Complications: No immediate complications. IMPRESSION: Trace residual seroma following doxycycline sclerosing. Drain previously fell out at patient's home. No intervention at this time. Patient has scheduled follow-up with her surgeon in the coming week. Report Dictated on Electronically Signed By: Sybil Kumar PA-C Electronically Signed Date/Time: 11/22/2024 7:42 AM EST [facility] US Guidance for biopsy of Un specified body regionOrdered By: Sybil Kumar on 11-22-2024 [facility] Work Phone: [phone] 11-21-2024 [id number] I called back patien t regarding drain that fell out. Left message for patient to discuss. Did leave in message that we would like her to keep her 1 pm appointment with us today. Normal [facility] US Guidance for biopsy of Un specified body regionon 11-21-2024 Radiology Study observation (narrative) [facility] [id number] 11-20-2024 [id number] Left message. Patient to return tomorrow at 12:30 to check in for appointment for aspiration and removal of drainage catheter at 13:00. Left return # for questions or concerns. Normal [facility] CBC (HEMOGRAM)on 11-20-2024 Erythrocyte distribution width (RBC) [Ratio] 12.3 % Normal 11.5-15.0 [facility] Comment on above: Performed By: #### L AB294 ####Online Banking Specialist: SOL ZENG ([phone])[address] Hematocrit (Bld) [Volume fraction] 40.1 % Normal 35.0-47.0 [facility] Comment on above: Performed By: #### L AB294 ####Online Banking Specialist: SOL ZENG ([phone])[address] Hemoglobin (Bld) [Mass/Vol] 13.5 g/dL Normal 11.7-16.0 [facility] Comment on above: Performed By: #### L AB294 ####Online Banking Specialist: SOL ZENG ([phone])[address] MCH (RBC) [Entitic mass] 30.4 pg Normal 26.0-34.0 [facility] Comment on above: Performed By: #### L AB294 ####Online Banking Specialist: SOL ZENG ([phone])[address] MCHC 33.7 % Normal 30.5-36.0 [facility] Comment on above: Performed By: #### L AB294 ####Online Banking Specialist: SOL ZENG ([phone])[facility] ([facility])[address] [place] [address] MCV (RBC) [Entitic vol] 90.3 fL Normal 77.0-99.0 [facility] Comment on above: Performed By: #### L AB294 ####Online Banking Specialist: SOL ZENG ([phone])[facility])[address] [place] [address] Platelet mean volume (Bld) [Entitic vol] 9.2 fL Normal 9.0-12.7 [facility] Comment on above: Performed By: #### L AB294 ####Online Banking Specialist: SOL ZENG ([phone])[address] Platelets (Bld) [#/Vol] 273 10*3/uL Normal 140-440 [facility] Comment on above: Performed By: #### L AB294 ####Online Banking Specialist: SOL ZENG ([phone])[facility])[address] [place] [address] RBC (Bld) [#/Vol] 4.44 10*6/uL Normal 3.80-5.20 [facility] Comment on above: Performed By: #### L AB294 ####Online Banking Specialist: SOL ZENG ([phone])[facility])[address] [place] [address] WBC (Bld) [#/Vol] 5.6 10*3/uL Normal 3.6-10.7 [facility] Comment on above: Performed By: #### L AB294 ####Online Banking Specialist: SOL ZENG ([phone])[facility])[address] [place] [address] CBC panel Auto (Bld)on 11-20 Erythrocyte distribution width (RBC) [Ratio] 12.3 % 11.5 - 15.0 % [facility] Hematocrit (Bld) [Volume fraction] 40.1 % 35.0 - 47.0 % [facility] Hemoglobin (Bld) [Mass/Vol] 13.5 g/dL 11.7 - 16.0 g/dL [facility] Interpretation and review of laboratory results Normal [facility] MCH (RBC) [Entitic mass] 30.4 pg 26.0 - 34.0 pg [facility] MCHC (RBC) [Mass/Vol] 33.7 % 30.5 - 36.0 % [facility] MCV (RBC) [Entitic vol] 90.3 fL 77.0 - 99.0 fL [facility] Platelet mean volume (Bld) [Entitic vol] 9.2 fL 9.0 - 12.7 fL [facility] Platelets (Bld) [#/Vol] 273 10*3/uL 140 - 440 10*3/uL [facility] RBC (Bld) [#/Vol] 4.44 10*6/uL 3.80 - 5.20 10*6/uL [facility] WBC (Bld) [#/Vol] 5.6 10*3/uL 3.6 - 10.7 10*3/uL [facility] Laboratory - Coagulationon 0 11-20-2024 PT Coag (Bld) [Time] 10.9 s 9.0 - 1 2.0 s [facility] Nursing Noteon 11-20-2024 Nursing Note Normal [facility] Nursing Note Normal [facility] Nursing Note Spoke with U/S ok to send patient down without IV access. Normal [facility] PROTHROMBIN TIMEon INR Coag (PPP) [Relative time] 1.0 {INR} Normal 0.9-1.1 [facility] Comment on above: Result Comment: Chicho mmended Anticoagulant Therapy: SEE BELOW----- INR of 2.0 - 3.0 : - Prophylaxis of Venous Thrombosis (high-risk surgery) - Treatment of Venous Thrombosis - Treatment of Pulmonary Embolism (Includes tissue heart valves, Acute Myocardial Infarction to prevent systemic embolism, Valvular Heart Disease, and Atrial Fibrillation)----- INR of 2.5 - 3.5 : - Mechanical Prosthetic Valves (high risk) - If oral anticoagulant therapy is used to prevent Myocardial Infarction Performed By: #### L AB320 ####Online Banking Specialist: SOL ZENG ([phone])[facility] ([address] PT Coag (PPP) [Time] 10.9 s Normal 9.0-12.0 [facility] Comment on above: Performed By: #### L AB320 ####Online Banking Specialist: SOL ZENG ([phone])[facility] ([facility])[address] [place] [address] [place] PT Coag (Bld) [Time]on 11-20 INR Coag (PPP) [Relative time] 1 {INR} 0.9 - 1.1 [facility] Comment on above: Recommended Anticoag ulant Therapy: SEE BELOW ----- INR of 2.0 - 3.0 : - Prophylaxis of Venous Thrombosis (high-risk surgery) - Treatment of Venous Thrombosis - Treatment of Pulmonary Embolism (Includes tissue heart valves, Acute Myocardial Infarction to prevent systemic embolism, Valvular Heart Disease, and Atrial Fibrillation) ----- INR of 2.5 - 3.5 : - Mechanical Prosthetic Valves (high risk) - If oral anticoagulant therapy is used to prevent Myocardial Infarction Interpretation and review of laboratory results Normal [facility] US DRAINAGE COLLECTION BY CA TH VISCERALon 11-20-2024 US DRAINAGE COLLECTION BY CATH VISCERAL Normal [facility] US Guidance for drainage of abscess and placement of drainage catheter of Liveron 11-20-2024 RESULT/IMPRESSION: Ultrasound-guided aspiration of an abdominal wall collection with infusion of doxycycline Report Dictated on Electronically Signed By: Jose Carlson MD Electronically Signed Date/Time: 11/20/2024 12:05 PM [facility] 1985 [id number] Exam Date/Time: 11/20/2024 08:54 Procedure: US DRAINAGE COLLECTION BY CATH VISCERAL Ordering Provider: GUERRIER SAMANTHA Reason For Exam: drainage with sclerosis, history of hernia repair, postop seroma IMAGE GUIDED ASPIRATION AND INFUSION OF A ABDOMINAL WALL COLLECTION : CLINICAL INDICATION: Prior surgery with persistent collections within the anterior abdominal wall Comparison imaging for biopsy target: CT from 10/08/2024. Further real-time ultrasonographic evaluation was performed prior to the procedure demonstrating a thin hypoechoic collection mostly in the left side of the abdomen which is compressible and measures up to 1 cm in AP dimension. PROCEDURE: Consent: Informed consent for the procedure including risks, benefits and alternatives was obtained and time-out was performed prior to the procedure. Preparation: The site was prepared and draped using maximal sterile barrier technique including cutaneous antisepsis. Anesthesia/sedation Moderate sedation was provided under my supervision with patient monitored by a trained radiology nurse. Total sedation time of 30 minutes. Procedure: Local anesthesia was administered. Under real-time ultrasound guidance, a 6 Mauritanian catheter was advanced into the collection with trocar technique. The catheter was advanced over the middle trocar and identified under ultrasound within the collection. The catheter was securely in place. Images were saved. Aspiration was performed with the yield of approximately 120 mL of susan fluid. After aspiration, infusion of a solution of the 50 mL of doxycycline was performed into the collection. The drainage valve was shut and the patient was return in various orientations for one hour. Following discussion with the patient, the patient was discharged to home with directions to aspirate the doxycycline and other fluid from the drainage catheter and returned tomorrow for removal of the catheter. Estimated blood loss (mL): Less than 10 Complications: No immediate complications. [facility] Jose Carlson MD - 11/20/2024 Patient Name: MEL WALL : 1985 [id number] Exam Date/Time: 11/20/2024 08:54 Procedure: US DRAINAGE COLLECTION BY CATH VISCERAL Ordering Provider: GUERRIER SAMANTHA Reason For Exam: drainage with sclerosis, history of hernia repair, postop seroma IMAGE GUIDED ASPIRATION AND INFUSION OF A ABDOMINAL WALL COLLECTION : CLINICAL INDICATION: Prior surgery with persistent collections within the anterior abdominal wall Comparison imaging for biopsy target: CT from 10/08/2024. Further real-time ultrasonographic evaluation was performed prior to the procedure demonstrating a thin hypoechoic collection mostly in the left side of the abdomen which is compressible and measures up to 1 cm in AP dimension. PROCEDURE: Consent: Informed consent for the procedure including risks, benefits and alternatives was obtained and time-out was performed prior to the procedure. Preparation: The site was prepared and draped using maximal sterile barrier technique including cutaneous antisepsis. Anesthesia/sedation Moderate sedation was provided under my supervision with patient monitored by a trained radiology nurse. Total sedation time of 30 minutes. Procedure: Local anesthesia was administered. Under real-time ultrasound guidance, a 6 Mauritanian catheter was advanced into the collection with trocar technique. The catheter was advanced over the middle trocar and identified under ultrasound within the collection. The catheter was securely in place. Images were saved. Aspiration was performed with the yield of approximately 120 mL of susan fluid. After aspiration, infusion of a solution of the 50 mL of doxycycline was performed into the collection. The drainage valve was shut and the patient was return in various orientations for one hour. Following discussion with the patient, the patient was discharged to home with directions to aspirate the doxycycline and other fluid from the drainage catheter and returned tomorrow for removal of the catheter. Estimated blood loss (mL): Less than 10 Complications: No immediate complications. IMPRESSION: RESULT/IMPRESSION: Ultrasound-guided aspiration of an abdominal wall collection with infusion of doxycycline Report Dictated on Electronically Signed By: Jose Carlson MD Electronically Signed Date/Time: 11/20/2024 12:05 PM EST [facility] Radiology Study observation (narrative) [facility] US Guidance for drainage of abscess and placement of drainage catheter of LiverOrdered By: Jose Carlson on 11-20-2024 [facility] Work Phone: [phone] 11-09-2024 [id number] [facility] 29on 11-08-2024 29 Addended by: ZA GUERRIER on: 11/08/2024 02:28 PM Modules accepted: Orders Normal [facility] 36on 11-08-2024 36 US reviewed - fluid collections present. Can proceed with US guided drainage if she wishes. Thanks. Normal [facility] US ABDOMEN LIMITEDon 025 US ABDOMEN LIMITED Normal [facility] US Abdomen limitedon 025 Findings/Impression: In the right hemiabdomen, in the area of clinical concern, there is an area of subcutaneous soft tissue fluid measuring up to 21.5 x 1.6 cm. In the left hemiabdomen, in the area of clinical concern, there is an area of subcutaneous soft tissue fluid measuring up to 15.1 x 2.0 cm. Report Dictated on Electronically Signed By: Michael Vance MD Electronically Signed Date/Time: 11/08/2024 1:07 PM [facility] Patient Name: MEL WALL : 1985 Exam Date/Time: 11/08/2024 08:20 Procedure: US ABDOMEN LIMITED Ordering Provider: GUERRIER SAMANTHA Reason For Exam: evaluate for fluid within abdominal wall, history of abdominal wall seroma, history of incisional hernia repair Examination: Ultrasound abdomen limited Technique: Hand-held, real-time ultrasound scanning was performed in the area of clinical concern by registered ct scan special procedures technologist. Saved images were reviewed. Clinical Indication: Pain Comparison: None [facility] Michael Vance MD - 11/08/2024 Patient Name: MEL WALL : 1985 Exam Date/Time: 11/08/2024 08:20 Procedure: US ABDOMEN LIMITED Ordering Provider: GUERRIER SAMANTHA Reason For Exam: evaluate for fluid within abdominal wall, history of abdominal wall seroma, history of incisional hernia repair Examination: Ultrasound abdomen limited Technique: Hand-held, real-time ultrasound scanning was performed in the area of clinical concern by registered ct scan special procedures technologist. Saved images were reviewed. Clinical Indication: Pain Comparison: None IMPRESSION: Findings/Impression: In the right hemiabdomen, in the area of clinical concern, there is an area of subcutaneous soft tissue fluid measuring up to 21.5 x 1.6 cm. In the left hemiabdomen, in the area of clinical concern, there is an area of subcutaneous soft tissue fluid measuring up to 15.1 x 2.0 cm. Report Dictated on Electronically Signed By: Michael Vance MD Electronically Signed Date/Time: 11/08/2024 1:07 PM [facility] Radiology Study observation (narrative) [facility] US Abdomen limitedOrdered By : Michael Vance on 11-08-2024 [facility] [employer] Work Phone: 36on 10-30-2024 36 Normal [facility] 36 Normal [facility] 36on 10-29-2024 36 LVM and MyChart msg (which she read) to submit a photo Normal [facility] 36 Us order placed. Normal [facility] 36 Normal [facility] CT GUIDED SOFT TISSUE FLUID DRAINon 10-08-2024 CT GUIDED SOFT TISSUE FLUID DRAIN Normal [facility] No Panel Informationon 10-08 Patient Name: MEL WALL : 1985 Exam Date/Time: 10/08/2024 11:09 Procedure: CT GUIDED SOFT TISSUE FLUID DRAIN Ordering Provider: MARROQUIN ALEXANDRA Reason For Exam: Drain removal HISTORY: Anterior abdominal wall subcutaneous fluid collections, status post sclerotherapy on 10/05/[address] sections are performed through the abdomen and pelvis. Dose reduction was employed with automatic exposure control. Multiple comparison studies FINDINGS: 1. No fluid is seen about the drainage catheter tip (drainage catheter subsequently removed). 2. Bandlike anterior subcutaneous fluid is present in the upper abdomen bilaterally (which is less than on examination of 09/02/2024) with subcutaneous edematous changes. 3. Prior abdominal surgery with mesh, prior cholecystectomy, prior bowel surgery, punctate right renal calculus with bilateral renal cortical cysts, tubal ligation clips. Report Dictated on Electronically Signed By: Satish Devine MD Electronically Signed Date/Time: 10/08/2024 11:47 AM [facility] Satish Devine MD - 10/08/2024 Patient Name: MEL WALL : 1985 Exam Date/Time: 10/08/2024 11:09 Procedure: CT GUIDED SOFT TISSUE FLUID DRAIN Ordering Provider: MARROQUIN ALEXANDRA Reason For Exam: Drain removal HISTORY: Anterior abdominal wall subcutaneous fluid collections, status post sclerotherapy on 10/05/[address] sections are performed through the abdomen and pelvis. Dose reduction was employed with automatic exposure control. Multiple comparison studies FINDINGS: 1. No fluid is seen about the drainage catheter tip (drainage catheter subsequently removed). 2. Bandlike anterior subcutaneous fluid is present in the upper abdomen bilaterally (which is less than on examination of 09/02/2024) with subcutaneous edematous changes. 3. Prior abdominal surgery with mesh, prior cholecystectomy, prior bowel surgery, punctate right renal calculus with bilateral renal cortical cysts, tubal ligation clips. Report Dictated on Electronically Signed By: Satish Devine MD Electronically Signed Date/Time: 10/08/2024 11:47 AM EST [facility] Radiology Study observation (narrative) [facility] No Panel InformationOrdered By: Satish Devine on 10-08-2024 [facility] [employer] Work Phone: Nursing Noteon 10-08-2024 Nursing Note Patient in to CT cole m for repeat scan and drain removal. Ok to pull drain per Dr. Devine. Drain removed, tip intact. Patient denies discomfort. Patient educated on removal and discharged home. Normal [facility] [id number] 10-05-2024 [id number] Normal [facility] 36on 10-05-2024 36 Hello. This patient has an order for a CT Abd Pel WO ordered on 08/31/2024. Patient had a CT Abd Pel W completed on 09/02/2024. I was reaching out to see if the CT abd pel WO is still needed. Please advise. Thank you and have a great weekend! Normal [facility] Nursing Noteon 10-05-2024 Nursing Note Normal [facility] Progress Noteon 10-05-2024 Progress Note Normal [facility] US GUIDED PERCUTANEOUS PERIT PHILIP OR RETROPERITONEAL FLUID COLLECTION DRAINAGEon 10-05-2024 US GUIDED PERCUTANEOUS PERITONEAL OR RETROPERITONEAL FLUID COLLECTION DRAINAGE Normal [facility] US Guidance for biopsy of Un specified body regionon 10-05-2024 Successful sclerothe rapy of the anterior abdominal fluid collection using doxycycline, as above. PLAN: - Patient was stable after the procedure and discharged home after observation. - Patient was instructed to drain doxycycline after six hour dwell time and leave drainage bag to suction at that point until follow-up appointment with radiology. - Patient will return on Tuesday10/08/24 for drain removal. Report Dictated on Electronically Signed By: Tara Marroquin PA-C Electronically Signed Date/Time: 10/05/2024 11:46 AM EST [facility] Name: MEL WALL : 1985 [id number] Exam Date/Time: 10/05/2024 08:35 Procedure: US GUIDED PERCUTANEOUS PERITONEAL OR RETROPERITONEAL FLUID COLLECTION DRAINAGE Ordering Provider: MARROQUIN ALEXANDRA Reason For Exam: SEROMA CLINICAL HISTORY: Postoperative anterior abdominal wall seroma. Patient had this seroma sclerosed yesterday. Returning for repeat sclerosis. PROCEDURES: Sclerosing of anterior abdominal wall seroma through previously placed drainage catheter Application of doxycycline sclerosant. ADVANCED PRACTICE PROVIDER: Tara Marroquin PA-C Attending physician, Sher Ta M.D., was available in the department if needed. MEDICATIONS: 50 mL of doxycycline (500 mg) sclerosant EBL: Minimal. CONTRAST: None SPECIMEN SENT: None COMPLICATIONS: None PROCEDURE NOTE: The procedure, risks, benefits, and alternatives were carefully explained to the patient and written informed consent was obtained. The patient was placed in the supine position. A time out was performed. A limited ultrasound of the anterior abdominal fluid collection was performed. A drainage bag was attached to indwelling drainage catheter. 200 mL of red fluid was drained. 50 mL of doxycycline (500 mg) was administered through the drainage catheter. This was left to dwell in the fluid collection with the patient on a rotation schedule every 15 minutes. [facility] Tara Marroquin PA -C - 10/05/2024 Patient Name: MEL WALL : 1985 Exam Date/Time: 10/05/2024 08:35 Procedure: US GUIDED PERCUTANEOUS PERITONEAL OR RETROPERITONEAL FLUID COLLECTION DRAINAGE Ordering Provider: MARROQUIN ALEXANDRA Reason For Exam: SEROMA CLINICAL HISTORY: Postoperative anterior abdominal wall seroma. Patient had this seroma sclerosed yesterday. Returning for repeat sclerosis. PROCEDURES: Sclerosing of anterior abdominal wall seroma through previously placed drainage catheter Application of doxycycline sclerosant. ADVANCED PRACTICE PROVIDER: Tara Marroquin PA-C Attending physician, Sher Ta M.D., was available in the department if needed. MEDICATIONS: 50 mL of doxycycline (500 mg) sclerosant EBL: Minimal. CONTRAST: None SPECIMEN SENT: None COMPLICATIONS: None PROCEDURE NOTE: The procedure, risks, benefits, and alternatives were carefully explained to the patient and written informed consent was obtained. The patient was placed in the supine position. A time out was performed. A limited ultrasound of the anterior abdominal fluid collection was performed. A drainage bag was attached to indwelling drainage catheter. 200 mL of red fluid was drained. 50 mL of doxycycline (500 mg) was administered through the drainage catheter. This was left to dwell in the fluid collection with the patient on a rotation schedule every 15 minutes. IMPRESSION: Successful sclerotherapy of the anterior abdominal fluid collection using doxycycline, as above. PLAN: - Patient was stable after the procedure and discharged home after observation. - Patient was instructed to drain doxycycline after six hour dwell time and leave drainage bag to suction at that point until follow-up appointment with radiology. - Patient will return on Tuesday10/08/24 for drain removal. Report Dictated on Electronically Signed By: Tara Marroquin PA-C Electronically Signed Date/Time: 10/05/2024 11:46 AM EST [facility] Radiology Study observation (narrative) [facility] 36on 10-04-2024 36 Normal [facility] CULTURE ANAEROBICon 10-04-20 CULTURE ANAEROBIC Normal [facility] Comment on above: Performed By: #### L [id number] ####Online Banking Specialist: SOL ZENG ([phone])[address] CULTURE, AEROBIC BACTERIA WI TH GRAM STAINon 10-04-2024 CULTURE, AEROBIC BACTERIA WITH GRAM STAIN Normal [facility] Comment on above: Performed By: #### L AB897 ####Online Banking Specialist: SOL ZENG ([phone])[facility])[address] [place] [address] HCG ( test) Ql (U)o n 10-04-2024 Beta HCG ( test) Ql (U) [id number] [facility] NEGATIVE QC Pass [facility] POSITIVE QC Pass [facility] [facility] Preg Test, Ur Negative Negative [facility] Nursing Noteon 10-04-2024 Nursing Note Discharge instructio bill reviewed with pt and pt's significant other Normal [facility] Nursing Note Normal [facility] Progress Noteon 10-04-2024 Progress Note Normal [facility] US GUIDED PERCUTANEOUS PERIT PHILIP OR RETROPERITONEAL FLUID COLLECTION DRAINAGEon 10-04-2024 US GUIDED PERCUTANEOUS PERITONEAL OR RETROPERITONEAL FLUID COLLECTION DRAINAGE Normal [facility] US Guidance for biopsy of Un specified body regionon 10-04-2024 Successful uncomplic ated ultrasound-guided placement of a 10 Mauritanian pigtail drainage catheter into a large anterior abdominal wall seroma with administration of doxycycline sclerosant. Report Dictated on Electronically Signed By: Sher Ta MD Electronically Signed Date/Time: 10/04/2024 1:18 PM [facility] Patient Name: MEL WALL : 1985 Exam Date/Time: 10/04/2024 08:17 Procedure: US GUIDED PERCUTANEOUS PERITONEAL OR RETROPERITONEAL FLUID COLLECTION DRAINAGE Ordering Provider: GUERRIER SAMANTHA Reason For Exam: recurrent abdominal seroma, recommend repeat drainage with sclerosis CLINICAL HISTORY: Postoperative anterior abdominal wall seroma. Patient had this seroma previously sclerosed however it has recurred Procedures: Ultrasound-guided placement of a 10 Mauritanian pigtail drainage catheter into a anterior abdominal wall seroma. Application of doxycycline sclerosant. Physician: Dr. Ta MEDICATIONS: Local lidocaine, 1.5 mg Versed IV, 75 mg fentanyl IV. EBL: Minimal. Contrast: None Specimen sent: None COMPLICATIONS: None Fluoroscopy Time: None Procedural details: Prior to the procedure red rules were performed which included patient name, date of , and procedure type. All of the risk, benefits, and alternative treatments were explained to the patient and informed consent was obtained and documented. The patient was brought into the ultrasound suite and placed in a supine position. An audible timeout was performed. Conscious sedation was performed by a trained sedation nurse/trained independent observer under my direct supervision. Intraservice time was 30 minutes. The patient's abdomen was prepped and draped in the usual sterile fashion. The overlying subcutaneous tissues were anesthetized using one percent lidocaine. Under direct ultrasound visualization, a 5 Mauritanian ClearFlow catheter was advanced into the large anterior abdominal seroma. Following this, a 0.035 short Amplatz wire was advanced through the catheter and into the collection. An 8 Mauritanian pigtail catheter was advanced over the wire and formed within the central Postplacement ultrasound confirmed appropriate position of the pigtail drainage catheter. Following this, 500 mg of doxycycline dilated in 50 mL of solution was administered. The catheter was secured to the patient's skin using a stay fix device. The patient tolerated the procedure well. There were no immediate complications. [facility] Loni Ta MD - 10/04/2024 Patient Name: MEL WALL : 1985 Exam Date/Time: 10/04/2024 08:17 Procedure: US GUIDED PERCUTANEOUS PERITONEAL OR RETROPERITONEAL FLUID COLLECTION DRAINAGE Ordering Provider: GUERRIER SAMANTHA Reason For Exam: recurrent abdominal seroma, recommend repeat drainage with sclerosis CLINICAL HISTORY: Postoperative anterior abdominal wall seroma. Patient had this seroma previously sclerosed however it has recurred Procedures: Ultrasound-guided placement of a 10 Mauritanian pigtail drainage catheter into a anterior abdominal wall seroma. Application of doxycycline sclerosant. Physician: Dr. Ta MEDICATIONS: Local lidocaine, 1.5 mg Versed IV, 75 mg fentanyl IV. EBL: Minimal. Contrast: None Specimen sent: None COMPLICATIONS: None Fluoroscopy Time: None Procedural details: Prior to the procedure red rules were performed which included patient name, date of , and procedure type. All of the risk, benefits, and alternative treatments were explained to the patient and informed consent was obtained and documented. The patient was brought into the ultrasound suite and placed in a supine position. An audible timeout was performed. Conscious sedation was performed by a trained sedation nurse/trained independent observer under my direct supervision. Intraservice time was 30 minutes. The patient's abdomen was prepped and draped in the usual sterile fashion. The overlying subcutaneous tissues were anesthetized using one percent lidocaine. Under direct ultrasound visualization, a 5 Mauritanian Yueh catheter was advanced into the large anterior abdominal seroma. Following this, a 0.035 short Amplatz wire was advanced through the catheter and into the collection. An 8 Mauritanian pigtail catheter was advanced over the wire and formed within the central Postplacement ultrasound confirmed appropriate position of the pigtail drainage catheter. Following this, 500 mg of doxycycline dilated in 50 mL of solution was administered. The catheter was secured to the patient's skin using a stay fix device. The patient tolerated the procedure well. There were no immediate complications. IMPRESSION: Successful uncomplicated ultrasound-guided placement of a 10 Mauritanian pigtail drainage catheter into a large anterior abdominal wall seroma with administration of doxycycline sclerosant. Report Dictated on Electronically Signed By: Sher Ta MD Electronically Signed Date/Time: 10/04/2024 1:18 PM [facility] Radiology Study observation (narrative) [facility] US Guidance for biopsy of Un specified body regionOrdered By: Loni Ta on 10-04-2024 [facility] Work Phone: [phone] 10-01-2024 [id number] Normal [facility] Progress Noteon 09-28-2024 Progress Note Normal [facility] CT GUIDED SOFT TISSUE FLUID DRAINon 09-14-2024 CT GUIDED SOFT TISSUE FLUID DRAIN Normal [facility] HCG ( test) Ql (U)o n 09-14-2024 Beta HCG ( test) Ql (U) [id number] [facility] Interpretation and review of laboratory results Normal [facility] NEGATIVE QC Pass [facility] POSITIVE QC Pass [facility] Preg Test, Ur Negative Negative [facility] No Panel Informationon 09-14 1. Interval resolution of subcutaneous periumbilical fluid collection. 2. Subsequently, successful removal of umbilical drain via cutting the proximal drainage tube. Sterile dressings placed. Report Dictated on Electronically Signed By: Tom Gongora DO Electronically Signed Date/Time: 09/14/2024 4:16 PM [facility] Patient Name: MEL WALL : 1985 Exam Date/Time: 09/14/2024 10:30 Procedure: CT GUIDED SOFT TISSUE FLUID DRAIN Ordering Provider: MOURA JAMES Reason For Exam: SEROMA CT PELVIS WITHOUT CONTRAST CLINICAL INDICATION: Subcutaneous umbilical seroma. Reassess drainage tube and possible sclerotherapy. TECHNIQUE: Axial 3 mm axial sections were obtained through the pelvis without IV or oral contrast. Images were reconstructed in sagittal and coronal planes. Dose reduction was employed with automated exposure control. Comparison: 09/02/2024. Exam: There is no erythema or fluctuance at the exit site of the right periumbilical drain. Serous fluid is seen within the back from 48 hours previously. Manual suction of the drainage tube yielded zero fluid. FINDINGS: Prior periumbilical catheter tip overlies the right side subcutaneous tissues of the anterior abdominal wall. The previously described large fluid collection within the anterior periumbilical subcutaneous fat is resolved. Periumbilical mesh is identified. The uterus is normal in size and position. Bilateral tubal clips are seen. Visualized bowel loops are unremarkable. No pelvic free fluid. Urinary bladder is incompletely distended. [facility] Tom Gongora DO - 09/14/2024 [facility]: [facility] : 1985 [id number] Exam Date/Time: 09/14/2024 10:30 Procedure: CT GUIDED SOFT TISSUE FLUID DRAIN Ordering Provider: MOURA JAMES Reason For Exam: SEROMA CT PELVIS WITHOUT CONTRAST CLINICAL INDICATION: Subcutaneous umbilical seroma. Reassess drainage tube and possible sclerotherapy. TECHNIQUE: Axial 3 mm axial sections were obtained through the pelvis without IV or oral contrast. Images were reconstructed in sagittal and coronal planes. Dose reduction was employed with automated exposure control. Comparison: 09/02/2024. Exam: There is no erythema or fluctuance at the exit site of the right periumbilical drain. Serous fluid is seen within the back from 48 hours previously. Manual suction of the drainage tube yielded zero fluid. FINDINGS: Prior periumbilical catheter tip overlies the right side subcutaneous tissues of the anterior abdominal wall. The previously described large fluid collection within the anterior periumbilical subcutaneous fat is resolved. Periumbilical mesh is identified. The uterus is normal in size and position. Bilateral tubal clips are seen. Visualized bowel loops are unremarkable. No pelvic free fluid. Urinary bladder is incompletely distended. IMPRESSION: 1. Interval resolution of subcutaneous periumbilical fluid collection. 2. Subsequently, successful removal of umbilical drain via cutting the proximal drainage tube. Sterile dressings placed. Report Dictated on Electronically Signed By: Tom Gongora DO Electronically Signed Date/Time: 09/14/2024 4:16 PM EST [facility] Radiology Study observation (narrative) [facility] Panel InformationOrdered By: Tom Gongora on 09-14-2024 [facility] Work Phone: Nursing Noteon 09-14-2024 Nursing Note Pt came for drain ch tye. No fluid found and drain removed by Dr gongora. Pt discharged from room. Normal [facility] [id number] 09-12-2024 [id number] Normal [facility] 36on 09-10-2024 36 See MyChart Normal [facility] 36 Normal [facility] CBC (HEMOGRAM)on 09-07-2024 Erythrocyte distribution width (RBC) [Ratio] 12.6 % Normal 11.5-15.0 [facility] Comment on above: Performed By: #### L [id number] ####Online Banking Specialist: SOL ZENG ([phone])[facility])[address] [place] [address] Hematocrit (Bld) [Volume fraction] 37.9 % Normal 35.0-47.0 [facility] Comment on above: Performed By: #### L AB294 ####Online Banking Specialist: SOL ZENG ([phone])[facility])[address] [place] [address] Hemoglobin (Bld) [Mass/Vol] 12.9 g/dL Normal 11.7-16.0 [facility] Comment on above: Performed By: #### L AB294 ####Online Banking Specialist: SOL ZENG ([phone])[facility])[address] [place] [address] MCH (RBC) [Entitic mass] 30.8 pg Normal 26.0-34.0 [facility] Comment on above: Performed By: #### L AB294 ####Online Banking Specialist: SOL ZENG ([phone])[facility])[address] [place] [address] MCHC 34.0 % Normal 30.5-36.0 [facility] Comment on above: Performed By: #### L AB294 ####Online Banking Specialist: SOL ZENG ([phone])[facility])[address] [place] [address] MCV (RBC) [Entitic vol] 90.5 fL Normal 77.0-99.0 [facility] Comment on above: Performed By: #### L AB294 ####Online Banking Specialist: SOL ZENG ([phone])[facility])[address] [place] [address] Platelet mean volume (Bld) [Entitic vol] 8.8 fL Low 9.0-12.7 [facility] Comment on above: Performed By: #### L AB294 ####Online Banking Specialist: SOL ZENG ([phone])[facility])[address] [place] [address] Platelets (Bld) [#/Vol] 288 10*3/uL Normal 140-440 [facility] Comment on above: Performed By: #### L AB294 ####Online Banking Specialist: SOL ZENG ([phone])[facility])[address] [place] [address] RBC (Bld) [#/Vol] 4.19 10*6/uL Normal 3.80-5.20 [facility] Comment on above: Performed By: #### L AB294 ####Online Banking Specialist: SOL ZENG ([phone])[facility])[address] [place] [address] WBC (Bld) [#/Vol] 7.3 10*3/uL Normal 3.6-10.7 [facility] Comment on above: Performed By: #### L AB294 ####Online Banking Specialist: SOL ZENG ([phone])[facility])[address] [place] [address] CBC panel Auto (Bld)on 09-07 Erythrocyte distribution width (RBC) [Ratio] 12.6 % 11.5 - 15.0 % [facility] Hematocrit (Bld) [Volume fraction] 37.9 % 35.0 - 47.0 % [facility] Hemoglobin (Bld) [Mass/Vol] 12.9 g/dL 11.7 - 16.0 g/dL [facility] Interpretation and review of laboratory results Abnormal [facility] MCH (RBC) [Entitic mass] 30.8 pg 26.0 - 34.0 pg [facility] MCHC (RBC) [Mass/Vol] 34 % 30.5 - 36.0 % [facility] MCV (RBC) [Entitic vol] 90.5 fL 77.0 - 99.0 fL [facility] Platelet mean volume (Bld) [Entitic vol] 8.8 fL Low 9.0 - 12.7 fL [facility] Platelets (Bld) [#/Vol] 288 10*3/uL 140 - 440 10*3/uL [facility] RBC (Bld) [#/Vol] 4.19 10*6/uL 3.80 - 5.20 10*6/uL [facility] WBC (Bld) [#/Vol] 7.3 10*3/uL 3.6 - 10.7 10*3/uL [facility] CULTURE ANAEROBICon 09-07-20 24 CULTURE ANAEROBIC Normal [facility] Comment on above: Performed By: #### L [id number] ####Online Banking Specialist: SOL ZENG ([phone])[address] CULTURE, AEROBIC BACTERIA WI TH GRAM STAINon 09-07-2024 CULTURE, AEROBIC BACTERIA WITH GRAM STAIN Normal [facility] Comment on above: Performed By: #### L AB897 ####Online Banking Specialist: SOL ZENG ([phone])[facility])[address] [place] [address] HCG ( test) Ql (U)o n 09-07-2024 Beta HCG ( test) Ql (U) [id number] [facility] Interpretation and review of laboratory results Normal [facility] NEGATIVE QC Pass [facility] POSITIVE QC Pass [facility] Preg Test, Ur Negative Negative [facility] Laboratory - CoagulationOrde red By: Moira Ordoñez on 09-07-2024 PT Coag (Bld) [Time] 10.5 s 9.0 - 1 2.0 s [facility] Nursing Noteon 09-07-2024 Nursing Note Normal [facility] PROTHROMBIN TIMEon INR Coag (PPP) [Relative time] {INR} Low 0.9-1.1 [facility] Comment on above: Result Comment: Chicho mmended Anticoagulant Therapy: SEE BELOW----- INR of 2.0 - 3.0 : - Prophylaxis of Venous Thrombosis (high-risk surgery) - Treatment of Venous Thrombosis - Treatment of Pulmonary Embolism (Includes tissue heart valves, Acute Myocardial Infarction to prevent systemic embolism, Valvular Heart Disease, and Atrial Fibrillation)----- INR of 2.5 - 3.5 : - Mechanical Prosthetic Valves (high risk) - If oral anticoagulant therapy is used to prevent Myocardial InfarctionThis result was previously suppressed from the chart. Performed By: #### L AB320 ####Online Banking Specialist: SOL ZENG ([phone])[address] PT Coag (PPP) [Time] 10.5 s Normal 9.0-12.0 [facility] Comment on above: Performed By: #### L AB320 ####Online Banking Specialist: SOL ZENG ([phone])[facility])[address] [place] [address] PT Coag (Bld) [Time]Ordered By: Moira Ordoñez on 09-07-2024 INR Coag (PPP) [Relative time] Low 0.9 - 1.1 [facility] Comment on above: Recommended Anticoag ulant Therapy: SEE BELOW ----- INR of 2.0 - 3.0 : - Prophylaxis of Venous Thrombosis (high-risk surgery) - Treatment of Venous Thrombosis - Treatment of Pulmonary Embolism (Includes tissue heart valves, Acute Myocardial Infarction to prevent systemic embolism, Valvular Heart Disease, and Atrial Fibrillation) ----- INR of 2.5 - 3.5 : - Mechanical Prosthetic Valves (high risk) - If oral anticoagulant therapy is used to prevent Myocardial Infarction This result was previously suppressed from the chart. Interpretation and review of laboratory results Abnormal [facility] US GUIDED PERCUTANEOUS PERIT PHILIP OR RETROPERITONEAL FLUID COLLECTION DRAINAGEon 09-07-2024 US GUIDED PERCUTANEOUS PERITONEAL OR RETROPERITONEAL FLUID COLLECTION DRAINAGE [facility] US Guidance for biopsy of Un specified body regionon 09-07-2024 1. Successful placem ent of 10 Mauritanian drain into anterior abdominal fluid collection with aspiration of 1 L of serous fluid. 2. Sclerotherapy of the anterior abdominal fluid collection using doxycycline, as above. PLAN: - Patient was stable after the procedure and discharged home after observation. - Patient was instructed to drain doxycycline after six hour dwell time and leave drainage bag to suction at that point until follow-up appointment with radiology. - Patient will return in one week for reevaluation of fluid collection and possible repeat sclerosis. Report Dictated on Electronically Signed By: Celina Moura DR Electronically Signed Date/Time: 09/07/2024 12:06 PM [facility] Patient Name: [facility]EL WALL : 1985 [id number] Exam Date/Time: 09/07/2024 09:59 Procedure: US GUIDED PERCUTANEOUS PERITONEAL OR RETROPERITONEAL FLUID COLLECTION DRAINAGE Ordering Provider: TAYLOR LOGAN Reason For Exam: abdominal wall seroma, h/o incisional hernia repair. Please drain, culture, and use sclerosing agent. Thanks! CLINICAL HISTORY: Postsurgical fluid collection in the anterior abdominal soft tissues. PROCEDURES: 1. Limited ultrasound of the anterior abdominal soft tissues. 2. Ultrasound guided placement of a 10 Mauritanian drainage catheter into abdominal fluid collection. 3. Sclerotherapy a fluid collection with doxycycline. PHYSICIANS: Dr. Moura. SEDATION: Moderate sedation was provided under my supervision with patient monitored by a trained radiology nurse. Total sedation time of 30 minutes. COMPLICATIONS: None ESTIMATED BLOOD LOSS: < 5 mL PROCEDURE NOTE: The procedure, risks, benefits, and alternatives were carefully explained to the patient and written informed consent was obtained. The patient was placed in the supine position. A time out was performed. A limited ultrasound of the anterior abdominal fluid collection was performed. Anterior lower abdomen was was prepped and draped in usual sterile fashion. Under ultrasound guidance, local anesthetic was applied in the area of planned drain placement. Anterior abdominal fluid collection was accessed with 10 Mauritanian drainage catheter using trocar technique under real-time ultrasound guidance. The drain was sutured in place with silk non-resorbable suture. 1.0 L serous fluid was manually aspirated under ultrasound guidance with near complete resolution of previously seen fluid collection. The fluid was sent to lab for potential fluid analysis. 50 mL of doxycycline (500 mg) was administered through the drainage catheter into the fluid collection. This was left to dwell in the fluid collection with the patient on a Rotation schedule every 15 minutes. [facility] Celina Moura MD - 09/07/2024 Patient Name: MEL WALL : 1985 [facility]#: [id number] Exam Date/Time: 09/07/2024 09:59 Procedure: US GUIDED PERCUTANEOUS PERITONEAL OR RETROPERITONEAL FLUID COLLECTION DRAINAGE Ordering Provider: TAYLOR LOGAN Reason For Exam: abdominal wall seroma, h/o incisional hernia repair. Please drain, culture, and use sclerosing agent. Thanks! CLINICAL HISTORY: Postsurgical fluid collection in the anterior abdominal soft tissues. PROCEDURES: 1. Limited ultrasound of the anterior abdominal soft tissues. 2. Ultrasound guided placement of a 10 Mauritanian drainage catheter into abdominal fluid collection. 3. Sclerotherapy a fluid collection with doxycycline. PHYSICIANS: Dr. Moura. SEDATION: Moderate sedation was provided under my supervision with patient monitored by a trained radiology nurse. Total sedation time of 30 minutes. COMPLICATIONS: None ESTIMATED BLOOD LOSS: < 5 mL PROCEDURE NOTE: The procedure, risks, benefits, and alternatives were carefully explained to the patient and written informed consent was obtained. The patient was placed in the supine position. A time out was performed. A limited ultrasound of the anterior abdominal fluid collection was performed. Anterior lower abdomen was was prepped and draped in usual sterile fashion. Under ultrasound guidance, local anesthetic was applied in the area of planned drain placement. Anterior abdominal fluid collection was accessed with 10 Mauritanian drainage catheter using trocar technique under real-time ultrasound guidance. The drain was sutured in place with silk non-resorbable suture. 1.0 L serous fluid was manually aspirated under ultrasound guidance with near complete resolution of previously seen fluid collection. The fluid was sent to lab for potential fluid analysis. 50 mL of doxycycline (500 mg) was administered through the drainage catheter into the fluid collection. This was left to dwell in the fluid collection with the patient on a Rotation schedule every 15 minutes. IMPRESSION: 1. Successful placement of 10 Mauritanian drain into anterior abdominal fluid collection with aspiration of 1 L of serous fluid. 2. Sclerotherapy of the anterior abdominal fluid collection using doxycycline, as above. PLAN: - Patient was stable after the procedure and discharged home after observation. - Patient was instructed to drain doxycycline after six hour dwell time and leave drainage bag to suction at that point until follow-up appointment with radiology. - Patient will return in one week for reevaluation of fluid collection and possible repeat sclerosis. Report Dictated on Electronically Signed By: Celina Moura DR Electronically Signed Date/Time: 09/07/2024 12:06 PM EST [facility] Radiology Study observation (narrative) [facility] US Guidance for biopsy of Un specified body regionOrdered By: Celina Moura on 09-07-2024 [facility] Work Phone: [phone] 09-05-2024 [id number] Normal [facility] 36on 09-03-2024 36 Normal [facility] [address] from ER yesterday. Proceed with CT guided drainage of seroma. Order placed. D/w Dr. Taylor - rec'd drainage, culture, and sclerosis per IR. Normal [facility] CBC W Auto Differential pane l (Bld)on 09-02-2024 Basophils (Bld) [#/Vol] 0 10*3/uL 0.0 - 0.2 10*3/uL [facility] Basophils/100 WBC (Bld) 0.6 % 0.0 - 2.0 % [facility] Eosinophils (Bld) [#/Vol] 0.5 10*3/uL 0.0 - 0.5 10*3/uL [facility] Eosinophils/100 WBC (Bld) 7.3 % High 0.0 - 6.0 % [facility] Erythrocyte distribution width (RBC) [Ratio] 12.6 % 11.5 - 15.0 % [facility] Hematocrit (Bld) [Volume fraction] 35.9 % 35.0 - 47.0 % [facility] Hemoglobin (Bld) [Mass/Vol] 12 g/dL 11.7 - 16.0 g/dL [facility] [facility] Immature granulocytes (Bld) [#/Vol] 0 10*3/uL NINF - 0.1 10*3/uL [facility] [employer] Immature granulocytes/100 WBC (Bld) 0.5 % 0.0 - 2.0 % [facility] Interpretation and review of laboratory results Abnormal [facility] Lymphocytes (Bld) [#/Vol] 1.3 10*3/uL 1.0 - 4.3 10*3/uL [facility] Lymphocytes/100 WBC (Bld) 20.1 % 15.0 - 45.0 % [facility] MCH (RBC) [Entitic mass] 31 pg 26.0 - 34.0 pg [facility] MCHC (RBC) [Mass/Vol] 33.4 % 30.5 - 36.0 % [facility] MCV (RBC) [Entitic vol] 92.8 fL 77.0 - 99.0 fL [facility] Monocytes (Bld) [#/Vol] 0.4 10*3/uL 0.0 - 0.9 10*3/uL [facility] Monocytes/100 WBC (Bld) 6.4 % 5.0 - 13.0 % [facility] Neutrophils (Bld) [#/Vol] 4.1 10*3/uL 1.8 - 7.5 10*3/uL [facility] Neutrophils/100 WBC (Bld) 65.1 % 38.0 - 82.0 % [facility] Nucleated RBC/100 WBC (Bld) [Ratio] 0 % [facility] Platelet mean volume (Bld) [Entitic vol] 8.7 fL Low 9.0 - 12.7 fL [facility] Comment on above: MPV is a calculated measurement using platelet volume ratio Platelets (Bld) [#/Vol] 311 10*3/uL 140 - 440 10*3/uL [facility] RBC (Bld) [#/Vol] 3.87 10*6/uL 3.80 - 5.20 10*6/uL [facility] WBC (Bld) [#/Vol] 6.3 10*3/uL 3.6 - 10.7 10*3/uL [facility] CBC WITH AUTO DIFFERENTIALon 09-02-2024 Basophils (Bld) [#/Vol] 0.0 10*3/uL Normal 0.0-0.2 [facility] Comment on above: Performed By: #### L [id number] ####Online Banking Specialist: TRACY PERDOMO ([phone])[facility] ([facility])[address] Basophils/100 WBC (Bld) 0.6 % Normal 0.0-2.0 [facility] Comment on above: Performed By: #### L [id number] ####Online Banking Specialist: TRACY PERDOMO ([phone])[facility] ([facility])[address] Eosinophils (Bld) [#/Vol] 0.5 10*3/uL Normal 0.0-0.5 [facility] Comment on above: Performed By: #### L [id number] ####Online Banking Specialist: TRACY PERDOMO ([phone])[facility] ([facility])[address] Eosinophils/100 WBC (Bld) 7.3 % High 0.0-6.0 [facility] Comment on above: Performed By: #### L [id number] ####Online Banking Specialist: TRACY PERDOMO ([phone])[facility] [employer] [facility] ([facility])[address] Erythrocyte distribution width (RBC) [Ratio] 12.6 % Normal 11.5-15.0 [facility] Comment on above: Performed By: #### L [id number] ####Online Banking Specialist: TRACY PERDOMO ([phone])[facility] ([facility])[address] Hematocrit (Bld) [Volume fraction] 35.9 % Normal 35.0-47.0 [facility] Comment on above: Performed By: #### L [id number] ####Online Banking Specialist: TRACY PERDOMO ([phone])[facility] ([facility])[address] Hemoglobin (Bld) [Mass/Vol] 12.0 g/dL Normal 11.7-16.0 [facility] Comment on above: Performed By: #### L [id number] ####Online Banking Specialist: TRACY VEEMARIELENA ([phone])[facility] ([facility])[address] IMMATURE GRANS % 0.5 % Normal 0.0-2.0 [facility] Comment on above: Performed By: #### L [id number] ####Online Banking Specialist: TRACY VEEMARIELENA ([phone])[facility] ([facility])[address] IMMATURE GRANS ABSOLUTE 0.0 10*3/uL Normal <0.1 [facility] Comment on above: Performed By: #### L [id number] ####Online Banking Specialist: TRACY VEEMARIELENA ([phone])[facility] ([facility])[address] Lymphocytes (Bld) [#/Vol] 1.3 10*3/uL Normal 1.0-4.3 [facility] Comment on above: Performed By: #### L [id number] ####Online Banking Specialist: TRACY VEEMARIELENA ([phone])[facility] ([facility])[address] Lymphocytes/100 WBC (Bld) 20.1 % Normal 15.0-45.0 [facility] Comment on above: Performed By: #### L [id number] ####Online Banking Specialist: TRACY PERDOMO ([phone])[facility] ([facility])[address] MCH (RBC) [Entitic mass] 31.0 pg Normal 26.0-34.0 [facility] Comment on above: Performed By: #### L [id number] ####Online Banking Specialist: TRACY PERDOMO ([phone])[facility] ([facility])[address] MCHC 33.4 % Normal 30.5-36.0 [facility] Comment on above: Performed By: #### L [id number] ####Online Banking Specialist: TRACY PERDOMO ([phone])[facility] ([facility])[address] MCV (RBC) [Entitic vol] 92.8 fL Normal 77.0-99.0 [facility] Comment on above: Performed By: #### L [id number] ####Online Banking Specialist: TRACY PERDOMO ([phone])[facility])[address] Monocytes (Bld) [#/Vol] 0.4 10*3/uL Normal 0.0-0.9 [facility] Comment on above: Performed By: #### L [id number] ####Online Banking Specialist: TRACY PERDOMO ([phone])[facility])[address] Monocytes/100 WBC (Bld) 6.4 % Normal 5.0-13.0 [facility] Comment on above: Performed By: #### L [id number] ####Online Banking Specialist: TRACY PERDOMO ([phone])[facility] ([facility])[address] NEUTROPHILS ABSOLUTE 4.1 10*3/uL Normal 1.8-7.5 [facility] Comment on above: Performed By: #### L [id number] ####Online Banking Specialist: TRACY PERDOMO ([phone])[facility] ([facility])[address] [place] [address] [place] Neutrophils/100 WBC (Bld) 65.1 % Normal 38.0-82.0 [facility] Comment on above: Performed By: #### L [id number] ####Online Banking Specialist: TRACY PERDOMO ([phone])[facility] ([facility])[address] [place] [address] [facility] NRBC 0.0 /100 WBCs Normal 0.0-2.0 [facility] Comment on above: Performed By: #### L [id number] ####Online Banking Specialist: TRACY PERDOMO ([phone])[facility] ([facility])[address] [place] [address] [facility] Platelet mean volume (Bld) [Entitic vol] 8.7 fL Low 9.0-12.7 [facility] Comment on above: Result Comment: MPV is a calculated measurement using platelet volume ratio Performed By: #### L [id number] ####Online Banking Specialist: TRACY PERDOMO ([phone])[facility] ([facility])[address] Platelets (Bld) [#/Vol] 311 10*3/uL Normal 140-440 [facility] Comment on above: Performed By: #### L [id number] ####Online Banking Specialist: TRACY PERDOMO ([phone])[facility] ([facility])[address] RBC (Bld) [#/Vol] 3.87 10*6/uL Normal 3.80-5.20 [facility] Comment on above: Performed By: #### L [id number] ####Online Banking Specialist: TRACY PERDOMO ([phone])[facility] ([facility])[address] WBC (Bld) [#/Vol] 6.3 10*3/uL Normal 3.6-10.7 [facility] Comment on above: Performed By: #### L [id number] ####Online Banking Specialist: TRACY PERDOMO ([phone])[facility] ([facility])[address] [place] [address] [facility] COMPLETE URINALYSISon 2023 BILIRUBIN, TOTAL PRESENCE IN URINE Negative Normal Negative [facility] Comment on above: Performed By: #### L [id number] ####Online Banking Specialist: TRACY PERDOMO ([phone])[facility] ([facility])[address] [place] [address] [facility] Clarity (U) Clear Normal Clear [facility] Comment on above: Performed By: #### L [id number] ####Online Banking Specialist: TRACY PERDOMO ([phone])[facility] ([facility])[address] [place] [address] Color (U) Colorless Normal Lt. Yellow [facility] Comment on above: Performed By: #### L [id number] ####Online Banking Specialist: TRACY PERDOMO ([phone])[facility] ([facility])[address] GLUCOSE (MG/DL) IN URINE Normal Normal Normal (<70) [facility] Comment on above: Performed By: #### L [id number] ####Online Banking Specialist: TRACY PERDOMO ([phone])[facility] ([facility])[address] [place] [address] [facility] HEMOGLOBIN PRESENCE IN URINE Negative Normal Negative [facility] Comment on above: Performed By: #### L [id number] ####Online Banking Specialist: TRACY PERDOMO ([phone])[facility] ([facility])[address] [place] [address] [facility] Ketones Ql (U) Negative Normal Negative [facility] Comment on above: Performed By: #### L [id number] ####Online Banking Specialist: TRACY PERDOMO ([phone])[facility] ([facility])[address] [place] [address] [facility] LEUKOCYTE ESTERASE PRESENCE IN URINE BY TEST STRIP Negative Normal Negative [facility] Comment on above: Performed By: #### L [id number] ####Online Banking Specialist: TRACYERICK PERDOMO ([phone])[facility] ([facility])[address] NITRITE PRESENCE IN URINE Negative Normal Negative [facility] Comment on above: Performed By: #### L [id number] ####Online Banking Specialist: TRACYERICK PERDOMO ([phone])[facility] ([facility])[address] pH (U) 6.5 [pH] Normal 5.0-8.0 [facility] Comment on above: Performed By: #### L [id number] ####Online Banking Specialist: TRACYERICK PERDOMO ([phone])[facility] ([facility])[address] Protein (U) [Mass/Vol] Negative Normal Negative [facility] Comment on above: Performed By: #### L [id number] ####Online Banking Specialist: TRACYERICK PERDOMO ([phone])[facility] ([facility])[address] [place] [address] Specific gravity (U) [Rel density] 1.012 Normal 1.005-1.03 0 [facility] Comment on above: Performed By: #### L [id number] ####Online Banking Specialist: TRACY LLANESBOBBY ([phone])[facility] ([facility])[address] [place] [address] UROBILINOGEN (MG/DL) IN URINE Normal Normal Normal (0-1) [facility] Comment on above: Performed By: #### L [id number] ####Online Banking Specialist: TRACY LLANESBOBBY ([phone])[facility] ([facility])[address] [place] [address] [facility] COMPREHENSIVE METABOLIC PANE Randy 09-02-2024 Albumin [Mass/Vol] 3.5 g/dL Normal 3.5-5.0 [facility] Comment on above: Performed By: #### L AB99, LAB17 ####Online Banking Specialist: TRACY PERDOMO ([phone])[facility])[address] [place] [address] [facility] ALP [Catalytic activity/Vol] 49 U/L Normal 38-126 [facility] Comment on above: Performed By: #### L AB99, LAB17 ####Online Banking Specialist: TRACY PERDOMO ([phone])[facility])[address] [place] [address] [facility] ALT [Catalytic activity/Vol] 15 U/L Normal 0-34 [facility] Comment on above: Performed By: #### L AB99, LAB17 ####Online Banking Specialist: TRACY PERDOMO ([phone])[facility] ([facility])[address] Anion gap [Moles/Vol] 4 mmol/L Normal 3-13 [facility] Comment on above: Performed By: #### L AB99, LAB17 ####Online Banking Specialist: TRACY PERDOMO ([phone])[facility] ([facility])[address] [place] [address] [facility] AST [Catalytic activity/Vol] 20 U/L Normal 15-46 [facility] Comment on above: Performed By: #### L AB99, LAB17 ####Online Banking Specialist: TRACY PERDOMO ([phone])[facility] ([facility])[address] [place] [address] [facility] Bilirubin [Mass/Vol] 0.2 mg/dL Normal 0.2-1.3 [facility] Comment on above: Performed By: #### L AB99, LAB17 ####Online Banking Specialist: TRACY PERDOMO ([phone])[facility] ([facility])[address] [place] [address] [place] Calcium [Mass/Vol] 8.6 mg/dL Normal 8.4-10.4 [facility] Comment on above: Performed By: #### L AB99, LAB17 ####Online Banking Specialist: TRACY BUSTAMANTECER ([phone])[facility] ([facility])[address] [place] [address] [place] Chloride [Moles/Vol] 108 mmol/L High 98-107 [facility] Comment on above: Performed By: #### L AB99, LAB17 ####Online Banking Specialist: TRACY PERDOMO ([phone])[facility] ([facility])[address] [place] [address] [facility] CO2 [Moles/Vol] 24 mmol/L Normal 22-30 [facility] Comment on above: Performed By: #### L 99, LAB17 ####Online Banking Specialist: TRACY PERDOMO ([phone])[facility] ([facility])[address] [place], [place] [address] [facility] Creatinine [Mass/Vol] 0.38 mg/dL Low 0.52-1.04 [facility] Comment on above: Performed By: #### L AB99, LAB17 ####Online Banking Specialist: TRACY VEEMARIELENA ([phone])[facility] ([facility])[address] [place] [id number] [facility] GLOMERULAR FILTRATION RATE ML/MIN/1.73 SQ M.PREDICTED >90.0 Normal >60.0 [facility] Comment on above: Result Comment: Calc ulation based on the Chronic Kidney Disease Epidemiology Collaboration (CKD-EPI) equation refit without adjustment for race Performed By: #### L AB99, LAB17 ####Online Banking Specialist: TRACY PERDOMO ([phone])[facility] ([facility])[address] [place] [address] [place] Glucose [Mass/Vol] 105 mg/dL High 70-100 [facility] Comment on above: Performed By: #### L AB99, LAB17 ####Online Banking Specialist: TRACY PERDOMO ([phone])[facility] ([facility])[address] [place] [address] [place] Potassium [Moles/Vol] 3.9 mmol/L Normal 3.5-5.1 [facility] Comment on above: Performed By: #### L AB99, LAB17 ####Online Banking Specialist: TRACY PERDOMO ([phone])[facility] ([facility])[address] [place] [address] [facility] Protein [Mass/Vol] 5.9 g/dL Low 6.3-8.2 [facility] Comment on above: Performed By: #### L AB99, LAB17 ####Online Banking Specialist: TRACY PERDOMO ([phone])[facility] ([facility])[address] [place] [address] [facility] Sodium [Moles/Vol] 136 mmol/L Normal 135-145 [facility] Comment on above: Performed By: #### L AB99, LAB17 ####Online Banking Specialist: TRACY PERDOMO ([phone])[facility] ([facility])[address] [place] [address] [facility] Urea nitrogen [Mass/Vol] 5 mg/dL Low 7-17 [facility] Comment on above: Performed By: #### L AB99, LAB17 ####Online Banking Specialist: TRACY PERDOMO ([phone])[facility] ([facility])[address] ABDOMEN PELVIS W CONTRAST on 09-02-2024 CT ABDOMEN PELVIS W CONTRAST Normal [facility] CT Abdomen and Pelvis W cont rast Oscar 09-02-2024 Patient Name: MEL WALL : 1985 Exam Date/Time: 09/02/2024 11:49 Procedure: CT ABDOMEN PELVIS W CONTRAST Ordering Provider: ZAMORA KASSIDY Reason For Exam: Surgery on 08/08/2024 for incisional hernia repair and appendectomy, having nausea and vomiting bloating and severe abdominal pain right side HISTORY: Nausea vomiting bloating, severe abdominal pain right side, history of ventral hernia repair and appendectomy on 08/08/2024 After intravenous contrast sections performed through the abdomen and pelvis. Dose reduction was employed with automatic exposure control. Comparison study from 08/07/2024. FINDINGS: 1. Status post ventral hernia repair with anterior abdominal wall mesh. There is an adjacent subcutaneous bandlike fluid collection which extends across the anterior abdomen with maximum width 2-3 cm. This may represent a seroma or liquefied hematoma (infection unlikely, no air bubbles are seen). 2. Prior cholecystectomy with trace intrahepatic bile duct dilatation with normal diameter common bile duct. 3. Small bowel surgery left upper quadrant with focal mild dilatation, prior duodenal surgery. 4. Punctate right renal calculus without obstruction with multiple small bilateral renal cysts. 5. No abnormalities are seen in pericecal region, tubal ligation clips, no free fluid or free air. Report Dictated on Electronically Signed By: Satish Devine MD Electronically Signed Date/Time: 09/02/2024 12:34 PM [facility] Satish Devine MD - 09/02/2024 [facility] : 1985 [id number] Exam Date/Time: 09/02/2024 11:49 Procedure: CT ABDOMEN PELVIS W CONTRAST Ordering Provider: ZAMORA KASSIDY Reason For Exam: Surgery on 08/08/2024 for incisional hernia repair and appendectomy, having nausea and vomiting bloating and severe abdominal pain right side HISTORY: Nausea vomiting bloating, severe abdominal pain right side, history of ventral hernia repair and appendectomy on 08/08/2024 After intravenous contrast sections performed through the abdomen and pelvis. Dose reduction was employed with automatic exposure control. Comparison study from 08/07/2024. FINDINGS: 1. Status post ventral hernia repair with anterior abdominal wall mesh. There is an adjacent subcutaneous bandlike fluid collection which extends across the anterior abdomen with maximum width 2-3 cm. This may represent a seroma or liquefied hematoma (infection unlikely, no air bubbles are seen). 2. Prior cholecystectomy with trace intrahepatic bile duct dilatation with normal diameter common bile duct. 3. Small bowel surgery left upper quadrant with focal mild dilatation, prior duodenal surgery. 4. Punctate right renal calculus without obstruction with multiple small bilateral renal cysts. 5. No abnormalities are seen in pericecal region, tubal ligation clips, no free fluid or free air. Report Dictated on Electronically Signed By: Satish Devine MD Electronically Signed Date/Time: 09/02/2024 12:34 PM EST [facility] Radiology Study observation (narrative) [facility] CT Abdomen and Pelvis W cont rast IVOrdered By: Satish Devine on 09-02-2024 [facility] [employer] Work Phone: Comprehensive metabolic 1998 panelon 09-02-2024 Albumin [Mass/Vol] 3.5 g/dL 3.5 - 5.0 g/dL [facility] ALP [Catalytic activity/Vol] 49 U/L 38 - 126 U/L [facility] ALT [Catalytic activity/Vol] 15 U/L 0 - 34 U/L [facility] Anion gap [Moles/Vol] 4 mmol/L 3 - 13 mmol/L [facility] AST [Catalytic activity/Vol] 20 U/L 15 - 46 U/L [facility] Bilirubin [Mass/Vol] 0.2 mg/dL 0.2 - 1 .3 mg/dL [facility] Calcium [Mass/Vol] 8.6 mg/dL 8.4 - 10. 4 mg/dL [facility] Chloride [Moles/Vol] 108 mmol/L High 98 - 10 7 mmol/L [facility] CO2 [Moles/Vol] 24 mmol/L 22 - 30 mmol/L [facility] Creatinine [Mass/Vol] 0.38 mg/dL Low 0.52 - 1.04 mg/dL [facility] GFR/1.73 sq M.predicted (S/P/Bld) [Vol rate/Area] - PINF [facility] Comment on above: Calculation based on the Chronic Kidney Disease Epidemiology Collaboration (CKD-EPI) equation refit without adjustment for race Glucose [Mass/Vol] 105 mg/dL High 70 - 100 mg/dL [facility] Interpretation and review of laboratory results Abnormal [facility] Potassium [Moles/Vol] 3.9 mmol/L 3.5 - 5.1 mmol/L [facility] Protein [Mass/Vol] 5.9 g/dL Low 6.3 - 8.2 g/dL [facility] Sodium [Moles/Vol] 136 mmol/L 135 - 145 mmol/L [facility] Urea nitrogen [Mass/Vol] 5 mg/dL Low 7 - 17 mg/dL [facility] ED Nursing Noteon 09-02-2024 ED Nursing Note Normal [facility] ED Provider Noteon ED Provider Note Normal [facility] HCG QUALITATIVE URINEon 08-11 Beta HCG ( test) Ql (U) Negative Normal Negative [facility] Comment on above: Order Comment: If ag e 10-60 and no hysterectomy. Result Comment: Plea se note: Very dilute urine specimens, as indicated by a low specific gravity, may not contain loan representative levels of hCG. If is still suspected, a first morning urine specimen should be collected 48 hours later and tested.ORDER COMMENTS: is the most common reason for HCG in urine, although choriocarcinoma, hydatidiform mole, and certain nontrophoblastic malignancies also result in detectable urinary HCG levels. Sensitivity = 20mIU/mL. Performed By: #### L [id number] ####Online Banking Specialist: TRACY PERDOMO ([phone])[facility] ([facility])[address] LIPASEon 09-02-2024 Lipase [Catalytic activity/Vol] 41 U/L Normal 23-300 [facility] Comment on above: Performed By: #### L AB99, LAB17 ####Online Banking Specialist: TRACY PERDOMO ([phone])[facility] ([facility])[address] [place] [address] [facility] Laboratory - Chemistry and C hemistry - challengeon 09-02-2024 Lipase [Catalytic activity/Vol] 41 U/L 23 - 300 U/L [facility] Laboratory - Chemistry and C hemistry - challengeOrdered By: Kendra Laurent on 09-02-2024 Beta HCG ( test) Ql Negative Negative [facility] Comment on above: Please note: Very di lute urine specimens, as indicated by a low specific gravity, may not contain loan representative levels of hCG. If is still suspected, a first morning urine specimen should be collected 48 hours later and tested. Beta HCG ( test) Ql (U) is the most common reason for HCG in urine, although choriocarcinoma, hydatidiform mole, and certain nontrophoblastic malignancies also result in detectable urinary HCG levels. Sensitivity = 20mIU/mL. [facility] Lipase [Catalytic activity/V ol]on 09-02-2024 Interpretation and review of laboratory results Normal [facility] No Panel InformationOrdered By: Kendra Laurent on 09-02-2024 [facility] Urinalysis complete panel (U )on 09-02-2024 Bilirubin Ql (U) Negative Negative mg/dL [facility] Clarity (U) Clear Clear [facility] Color (U) Colorless Lt. Yellow [facility] Glucose Ql (U) Normal Normal (<70) mg/dL [facility] Hemoglobin Ql (U) Negative Negative mg/dL [facility] Interpretation and review of laboratory results Normal [facility] Ketones (U) [Mass/Vol] Negative Negative mg/dL [facility] Leukocyte esterase Test strip Ql (U) Negative Negative Peace/uL [facility] Nitrite Ql (U) Negative Negative [facility] pH (U) 6.5 [pH] 5.0 - 8.0 pH [facility] Protein (U) [Mass/Vol] Negative Negative mg/dL [facility] Specific gravity (U) [Rel density] 1.012 1.005 - 1.030 [facility] Urobilinogen (U) [Mass/Vol] Normal Normal (0-1) mg/dL [facility] Progress Noteon 08-31-2024 Progress Note Normal [facility] Progress Noteon 08-24-2024 Progress Note Normal [facility] 30on 08-13-2024 30 Normal [facility] [id number] 08-13-2024 [id number] Normal [facility] BASIC METABOLIC PANELon Anion gap [Moles/Vol] 5 mmol/L Normal 3-13 [facility] Comment on above: Performed By: #### L AB103, LAB15 ####Online Banking Specialist: SOL ZENG ([phone])[facility] [place] [address] Calcium [Mass/Vol] 8.8 mg/dL Normal 8.4-10.4 [facility] Comment on above: Performed By: #### L AB103, LAB15 ####Online Banking Specialist: SOL ZENG ([phone])[facility] [place] [address] Chloride [Moles/Vol] 102 mmol/L Normal 98-107 [facility] Comment on above: Performed By: #### L AB103, LAB15 ####Online Banking Specialist: SOL ZENG ([phone])[facility] ([facility])[address] [place] [address] CO2 [Moles/Vol] 28 mmol/L Normal 22-30 [facility] Comment on above: Performed By: #### L AB103, LAB15 ####Online Banking Specialist: SOL ZENG ([phone])[facility] ([facility])[address] [place] [address] Creatinine [Mass/Vol] 0.47 mg/dL Low 0.52-1.04 [facility] Comment on above: Performed By: #### L AB103, LAB15 ####Online Banking Specialist: SOL ZENG ([phone])[facility])[address] [place] [address] GLOMERULAR FILTRATION RATE ML/MIN/1.73 SQ M.PREDICTED >90.0 Normal >60.0 [facility] Comment on above: Result Comment: Calc ulation based on the Chronic Kidney Disease Epidemiology Collaboration (CKD-EPI) equation refit without adjustment for race Performed By: #### L AB103, LAB15 ####Online Banking Specialist: SOL ZENG ([phone])[facility])[address] [place] [address] [place] Glucose [Mass/Vol] 106 mg/dL High 70-100 [facility] Comment on above: Performed By: #### L AB103, LAB15 ####Online Banking Specialist: SOL [phone])[facility])[address] [place] [address] Potassium [Moles/Vol] 4.0 mmol/L Normal 3.5-5.1 [facility] Comment on above: Performed By: #### L AB103, LAB15 ####Online Banking Specialist: SOL ZENG ([phone])[facility])[address] [place] [address] Sodium [Moles/Vol] 134 mmol/L Low 135-145 [facility] Comment on above: Performed By: #### L AB103, LAB15 ####Online Banking Specialist: SOL ZENG ([phone])[facility])[address] [place] [address] Urea nitrogen [Mass/Vol] 8 mg/dL Normal 7-17 [facility] Comment on above: Performed By: #### L AB103, LAB15 ####Online Banking Specialist: SOL ZENG ([phone])[facility])[address] [place] [address] Basic metabolic 1998 panelon 08-13-2024 Anion gap [Moles/Vol] 5 mmol/L 3 - 13 mmol/L [facility] Calcium [Mass/Vol] 8.8 mg/dL 8.4 - 10. 4 mg/dL [facility] Chloride [Moles/Vol] 102 mmol/L 98 - 10 7 mmol/L [facility] CO2 [Moles/Vol] 28 mmol/L 22 - 30 mmol/L [facility] Creatinine [Mass/Vol] 0.47 mg/dL Low 0.52 - 1.04 mg/dL [facility] GFR/1.73 sq M.predicted (S/P/Bld) [Vol rate/Area] - PINF [facility] Comment on above: Calculation based on the Chronic Kidney Disease Epidemiology Collaboration (CKD-EPI) equation refit without adjustment for race Glucose [Mass/Vol] 106 mg/dL High 70 - 100 mg/dL [facility] Interpretation and review of laboratory results Abnormal [facility] Potassium [Moles/Vol] 4 mmol/L 3.5 - 5.1 mmol/L [facility] Sodium [Moles/Vol] 134 mmol/L Low 135 - 145 mmol/L [facility] Urea nitrogen [Mass/Vol] 8 mg/dL 7 - 17 mg/dL [facility] CBC (HEMOGRAM)on 08-13-2024 Erythrocyte distribution width (RBC) [Ratio] 12.3 % Normal 11.5-15.0 [facility] Comment on above: Performed By: #### L AB294 ####Online Banking Specialist: SOL ZENG ([phone])[facility])[address] [place] [address] Hematocrit (Bld) [Volume fraction] 31.9 % Low 35.0-47.0 [facility] Comment on above: Performed By: #### L AB294 ####Online Banking Specialist: SOL ZENG ([phone])[facility])[address] [place] [address] Hemoglobin (Bld) [Mass/Vol] 10.3 g/dL Low 11.7-16.0 [facility] Comment on above: Performed By: #### L AB294 ####Online Banking Specialist: SOL ZENG ([phone])[facility] ([facility])[address] [place] [address] MCH (RBC) [Entitic mass] 30.7 pg Normal 26.0-34.0 [facility] Comment on above: Performed By: #### L AB294 ####Online Banking Specialist: SOL ZENG ([phone])[facility])[address] [place] [address] MCHC 32.3 % Normal 30.5-36.0 [facility] Comment on above: Performed By: #### L AB294 ####Online Banking Specialist: SOL ZENG ([phone])[facility])[address] [place] [address] MCV (RBC) [Entitic vol] 94.9 fL Normal 77.0-99.0 [facility] Comment on above: Performed By: #### L AB294 ####Online Banking Specialist: SOL ZENG ([phone])[facility])[address] [place] [address] Platelet mean volume (Bld) [Entitic vol] 8.7 fL Low 9.0-12.7 [facility] Comment on above: Performed By: #### L AB294 ####Online Banking Specialist: SOL ZENG ([phone])[facility] ([facility])[address] [place] [address] Platelets (Bld) [#/Vol] 287 10*3/uL Normal 140-440 [facility] Comment on above: Performed By: #### L AB294 ####Online Banking Specialist: SOL ZENG ([phone])[facility] ([facility])[address] [place] [address] RBC (Bld) [#/Vol] 3.36 10*6/uL Low 3.80-5.20 [facility] Comment on above: Performed By: #### L AB294 ####Online Banking Specialist: SOL ZENG ([phone])[facility] ([facility])[address] [place] [address] WBC (Bld) [#/Vol] 7.0 10*3/uL Normal 3.6-10.7 [facility] Comment on above: Performed By: #### L AB294 ####Online Banking Specialist: SOL ZENG ([phone])[facility])[address] [place] [address] CBC panel Auto (Bld)on 08-13 Erythrocyte distribution width (RBC) [Ratio] 12.3 % 11.5 - 15.0 % [facility] Hematocrit (Bld) [Volume fraction] 31.9 % Low 35.0 - 47.0 % [facility] Hemoglobin (Bld) [Mass/Vol] 10.3 g/dL Low 11.7 - 16.0 g/dL [facility] Interpretation and review of laboratory results Abnormal [facility] MCH (RBC) [Entitic mass] 30.7 pg 26.0 - 34.0 pg [facility] MCHC (RBC) [Mass/Vol] 32.3 % 30.5 - 36.0 % [facility] MCV (RBC) [Entitic vol] 94.9 fL 77.0 - 99.0 fL [facility] Platelet mean volume (Bld) [Entitic vol] 8.7 fL Low 9.0 - 12.7 fL [facility] Platelets (Bld) [#/Vol] 287 10*3/uL 140 - 440 10*3/uL [facility] RBC (Bld) [#/Vol] 3.36 10*6/uL Low 3.80 - 5.20 10*6/uL [facility] WBC (Bld) [#/Vol] 7 10*3/uL 3.6 - 10.7 10*3/uL [facility] Consulton 08-13-2024 Consult Normal [facility] Laboratory - Chemistry and C hemistry - challengeon 08-13-2024 Magnesium [Mass/Vol] 1.7 mg/dL 1.6 - 2 .3 mg/dL [facility] MAGNESIUMon 08-13-2024 Magnesium [Mass/Vol] 1.7 mg/dL Normal 1.6-2.3 [facility] Comment on above: Performed By: #### L AB103, LAB15 ####Online Banking Specialist: SOL ZENG ([phone])[facility] ([facility] Magnesium [Mass/Vol]on 08-13 Interpretation and review of laboratory results Normal [facility] No Panel Informationon 08-13 [facility] Nursing Noteon 08-13-2024 Nursing Note Discharge instructio ns voiced understanding, meds, followup, wd vac care, devin care and emptying-measure for doctor, s/s infection, and when to call dr Silverman [facility] Nursing Note Normal [facility] Progress Noteon 08-13-2024 Progress Note Normal [facility] Progress Note Normal [facility] Progress Note OPEP ordered QID. Haleigh levin refused first time but will try later. [facility] Progress Note Discussed pt with dr Raimundo taylor. changes made to medications. adm consulted. full follow up note to follow later today [facility] Progress Note Normal [facility] 30on 08-12-2024 30 Normal [facility] 30 Normal [facility] BASIC METABOLIC PANELon Anion gap [Moles/Vol] 6 mmol/L Normal 3-13 [facility] Comment on above: Performed By: #### L AB103, LAB15, [id number] ####Online Banking Specialist: SOL ZENG ([phone])[facility])[address] [place] [address] Calcium [Mass/Vol] 8.6 mg/dL Normal 8.4-10.4 [facility] Comment on above: Performed By: #### L AB103, LAB15, [id number] ####Online Banking Specialist: SOL ZENG ([phone])[facility])[address] [place] [address] Chloride [Moles/Vol] 104 mmol/L Normal 98-107 [facility] Comment on above: Performed By: #### L AB103, LAB15, [id number] ####Online Banking Specialist: SOL ZENG ([phone])[facility])[address] [place] [address] CO2 [Moles/Vol] 25 mmol/L Normal 22-30 [facility] Comment on above: Performed By: #### Rachael AB103, LAB15, [id number] ####Online Banking Specialist: SOL ZENG ([phone])[facility])[address] [place] [address] Creatinine [Mass/Vol] 0.44 mg/dL Low 0.52-1.04 [facility] Comment on above: Performed By: #### L AB103, LAB15, [id number] ####Online Banking Specialist: SOL ZENG ([phone])[facility])[address] [place] [address] GLOMERULAR FILTRATION RATE ML/MIN/1.73 SQ M.PREDICTED >90.0 Normal >60.0 [facility] Comment on above: Result Comment: Calc ulation based on the Chronic Kidney Disease Epidemiology Collaboration (CKD-EPI) equation refit without adjustment for race Performed By: #### L AB103, LAB15, [id number] ####Online Banking Specialist: SOL ZENG ([phone])[facility] ([facility])[address] [place] [address] Glucose [Mass/Vol] 151 mg/dL High 70-100 [facility] Comment on above: Performed By: #### L AB103, LAB15, [id number] ####Online Banking Specialist: SOL ZENG ([phone])[facility] ([facility])[address] [place] [address] Potassium [Moles/Vol] 3.7 mmol/L Normal 3.5-5.1 [facility] Comment on above: Performed By: #### L AB103, LAB15, [id number] ####Online Banking Specialist: SOL ZENG ([phone])[facility])[address] [place] [address] Sodium [Moles/Vol] 134 mmol/L Low 135-145 [facility] Comment on above: Performed By: #### L AB103, LAB15, [id number] ####Online Banking Specialist: SOL ZENG ([phone])[facility] ([facility])[address] [place] [address] Urea nitrogen [Mass/Vol] 6 mg/dL Low 7-17 [facility] Comment on above: Performed By: #### L AB103, LAB15, [id number] ####Online Banking Specialist: SOL ZEGN ([phone])[facility])[address] [place] [address] Basic metabolic 1998 panelon 08-12-2024 Anion gap [Moles/Vol] 6 mmol/L 3 - 13 mmol/L [facility] Calcium [Mass/Vol] 8.6 mg/dL 8.4 - 10. 4 mg/dL [facility] Chloride [Moles/Vol] 104 mmol/L 98 - 10 7 mmol/L [facility] CO2 [Moles/Vol] 25 mmol/L 22 - 30 mmol/L [facility] Creatinine [Mass/Vol] 0.44 mg/dL Low 0.52 - 1.04 mg/dL [facility] GFR/1.73 sq M.predicted (S/P/Bld) [Vol rate/Area] - PINF [facility] Comment on above: Calculation based on the Chronic Kidney Disease Epidemiology Collaboration (CKD-EPI) equation refit without adjustment for race Glucose [Mass/Vol] 151 mg/dL High 70 - 100 mg/dL [facility] Interpretation and review of laboratory results Abnormal [facility] Potassium [Moles/Vol] 3.7 mmol/L 3.5 - 5.1 mmol/L [facility] Sodium [Moles/Vol] 134 mmol/L Low 135 - 145 mmol/L [facility] Urea nitrogen [Mass/Vol] 6 mg/dL Low 7 - 17 mg/dL [facility] CBC (HEMOGRAM)on 08-12-2024 Erythrocyte distribution width (RBC) [Ratio] 12.2 % Normal 11.5-15.0 [facility] Comment on above: Performed By: #### L AB294 ####Online Banking Specialist: SOL ZENG ([phone])[facility])[address] [place] [address] Hematocrit (Bld) [Volume fraction] 31.9 % Low 35.0-47.0 [facility] Comment on above: Performed By: #### L AB294 ####Online Banking Specialist: SOL ZENG ([phone])[facility])[address] [place] [address] Hemoglobin (Bld) [Mass/Vol] 10.4 g/dL Low 11.7-16.0 [facility] Comment on above: Performed By: #### L AB294 ####Online Banking Specialist: SOL ZENG ([phone])[facility])[address] [place] [address] MCH (RBC) [Entitic mass] 30.2 pg Normal 26.0-34.0 [facility] Comment on above: Performed By: #### L AB294 ####Online Banking Specialist: SOL ZENG ([phone])[facility])[address] [place] [address] MCHC 32.6 % Normal 30.5-36.0 [facility] Comment on above: Performed By: #### L AB294 ####Online Banking Specialist: SOL ZENG ([phone])[facility])[address] [place] [address] MCV (RBC) [Entitic vol] 92.7 fL Normal 77.0-99.0 [facility] Comment on above: Performed By: #### L AB294 ####Online Banking Specialist: SOL ZENG ([phone])[facility])[address] [place] [address] Platelet mean volume (Bld) [Entitic vol] 8.8 fL Low 9.0-12.7 [facility] Comment on above: Performed By: #### L AB294 ####Online Banking Specialist: SOL ZENG ([phone])[facility] ([facility])[address] [place] [address] Platelets (Bld) [#/Vol] 302 10*3/uL Normal 140-440 [facility] Comment on above: Performed By: #### L AB294 ####Online Banking Specialist: SOL ZENG ([phone])[facility] ([facility])[address] [place] [address] RBC (Bld) [#/Vol] 3.44 10*6/uL Low 3.80-5.20 [facility] Comment on above: Performed By: #### L AB294 ####Online Banking Specialist: SOL ZENG ([phone])[facility])[address] [place] [address] WBC (Bld) [#/Vol] 7.2 10*3/uL Normal 3.6-10.7 [facility] Comment on above: Performed By: #### L AB294 ####Online Banking Specialist: SOL ZENG ([phone])[facility])[address] [place] [address] CBC panel Auto (Bld)on 08-12 Erythrocyte distribution width (RBC) [Ratio] 12.2 % 11.5 - 15.0 % [facility] Hematocrit (Bld) [Volume fraction] 31.9 % Low 35.0 - 47.0 % [facility] Hemoglobin (Bld) [Mass/Vol] 10.4 g/dL Low 11.7 - 16.0 g/dL [facility] Interpretation and review of laboratory results Abnormal [facility] MCH (RBC) [Entitic mass] 30.2 pg 26.0 - 34.0 pg [facility] MCHC (RBC) [Mass/Vol] 32.6 % 30.5 - 36.0 % [facility] MCV (RBC) [Entitic vol] 92.7 fL 77.0 - 99.0 fL [facility] Platelet mean volume (Bld) [Entitic vol] 8.8 fL Low 9.0 - 12.7 fL [facility] Platelets (Bld) [#/Vol] 302 10*3/uL 140 - 440 10*3/uL [facility] RBC (Bld) [#/Vol] 3.44 10*6/uL Low 3.80 - 5.20 10*6/uL [facility] WBC (Bld) [#/Vol] 7.2 10*3/uL 3.6 - 10.7 10*3/uL [facility] Laboratory - Chemistry and C hemistry - challengeon 08-12-2024 Magnesium [Mass/Vol] 1.6 mg/dL 1.6 - 2 .3 mg/dL [facility] MAGNESIUMon 08-12-2024 Magnesium [Mass/Vol] 1.6 mg/dL Normal 1.6-2.3 [facility] Comment on above: Performed By: #### L AB103, LAB15, [id number] ####Online Banking Specialist: SOL ZENG ([phone])[address] Magnesium [Mass/Vol]on 08-12 Interpretation and review of laboratory results Normal [facility] No Panel Informationon 08-12 [facility] PHOSPHORUSon 08-12-2024 Phosphate [Mass/Vol] 3.8 mg/dL Normal 2.5-4.5 [facility] Comment on above: Performed By: #### L AB103, LAB15, [id number] ####Online Banking Specialist: SOL ZENG ([phone])[facility] ([facility])[address] [place] [address] [place] Phosphate [Moles/Vol]on Interpretation and review of laboratory results Normal [facility] Phosphate [Mass/Vol] 3.8 mg/dL 2.5 - 4 .5 mg/dL [facility] Progress Noteon 08-12-2024 Progress Note Normal [facility] Progress Note Normal [facility] 30on 08-11-2024 30 Normal [facility] 30 Normal [facility] BASIC METABOLIC PANELon 11-0 Anion gap [Moles/Vol] 7 mmol/L Normal 3-13 [facility] Comment on above: Performed By: #### L AB15, [id number] ####Online Banking Specialist: SOL ZENG ([phone])[facility] ([facility])[address] [place] [address] Calcium [Mass/Vol] 8.8 mg/dL Normal 8.4-10.4 [facility] Comment on above: Performed By: #### L AB15, [id number] ####Online Banking Specialist: SOL ZENG ([phone])[facility] ([facility])[address] [place] [address] Chloride [Moles/Vol] 103 mmol/L Normal 98-107 [facility] Comment on above: Performed By: #### L AB15, [id number] ####Online Banking Specialist: SOL ZENG ([phone])[facility] ([facility])[address] [place] [address] CO2 [Moles/Vol] 26 mmol/L Normal 22-30 [facility] Comment on above: Performed By: #### L AB15, [id number] ####Online Banking Specialist: SOL ZENG ([phone])[facility] ([facility])[address] [place] [address] Creatinine [Mass/Vol] 0.41 mg/dL Low 0.52-1.04 [facility] Comment on above: Performed By: #### L AB15, [id number] ####Online Banking Specialist: SOL ZENG ([phone])[facility] ([facility])[address] [place] [address] GLOMERULAR FILTRATION RATE ML/MIN/1.73 SQ M.PREDICTED >90.0 Normal >60.0 [facility] Comment on above: Result Comment: Calc ulation based on the Chronic Kidney Disease Epidemiology Collaboration (CKD-EPI) equation refit without adjustment for race Performed By: #### L AB15, [id number] ####Online Banking Specialist: SOL ZENG ([phone])[facility] ([facility])[address] [place] [address] Glucose [Mass/Vol] 96 mg/dL Normal 70-100 [facility] Comment on above: Performed By: #### L AB15, [id number] ####Online Banking Specialist: SOL ZENG ([phone])[facility] ([facility])[address] [place] [address] Potassium [Moles/Vol] 3.8 mmol/L Normal 3.5-5.1 [facility] Comment on above: Performed By: #### L AB15, [id number] ####Online Banking Specialist: SOL ZENG ([phone])[facility] ([facility])[address] [place] [address] Sodium [Moles/Vol] 136 mmol/L Normal 135-145 [facility] Comment on above: Performed By: #### L AB15, [id number] ####Online Banking Specialist: SOL ZENG ([phone])[facility] ([facility])[address] [place] [address] Urea nitrogen [Mass/Vol] 4 mg/dL Low 7-17 [facility] Comment on above: Performed By: #### L AB15, [id number] ####Online Banking Specialist: SOL ZENG ([phone])[facility])[address] [place] [address] Basic metabolic 1998 panelon 08-11-2024 Anion gap [Moles/Vol] 7 mmol/L 3 - 13 mmol/L [facility] Calcium [Mass/Vol] 8.8 mg/dL 8.4 - 10. 4 mg/dL [facility] Chloride [Moles/Vol] 103 mmol/L 98 - 10 7 mmol/L [facility] CO2 [Moles/Vol] 26 mmol/L 22 - 30 mmol/L [facility] Creatinine [Mass/Vol] 0.41 mg/dL Low 0.52 - 1.04 mg/dL [facility] GFR/1.73 sq M.predicted (S/P/Bld) [Vol rate/Area] - PINF [facility] Comment on above: Calculation based on the Chronic Kidney Disease Epidemiology Collaboration (CKD-EPI) equation refit without adjustment for race Glucose [Mass/Vol] 96 mg/dL 70 - 100 mg/dL [facility] Interpretation and review of laboratory results Abnormal [facility] Potassium [Moles/Vol] 3.8 mmol/L 3.5 - 5.1 mmol/L [facility] Sodium [Moles/Vol] 136 mmol/L 135 - 145 mmol/L [facility] Urea nitrogen [Mass/Vol] 4 mg/dL Low 7 - 17 mg/dL [facility] CBC (HEMOGRAM)on 08-11-2024 Erythrocyte distribution width (RBC) [Ratio] 12.3 % Normal 11.5-15.0 [facility] Comment on above: Performed By: #### L AB294 ####Online Banking Specialist: SOL ZENG ([phone])[address] Hematocrit (Bld) [Volume fraction] 35.5 % Normal 35.0-47.0 [facility] Comment on above: Performed By: #### L AB294 ####Online Banking Specialist: SOL ZENG ([phone])[facility])[address] [place] [address] Hemoglobin (Bld) [Mass/Vol] 11.9 g/dL Normal 11.7-16.0 [facility] Comment on above: Performed By: #### L AB294 ####Online Banking Specialist: SOL ZENG ([phone])[facility])[address] [place] [address] MCH (RBC) [Entitic mass] 30.7 pg Normal 26.0-34.0 [facility] Comment on above: Performed By: #### L AB294 ####Online Banking Specialist: SOL ZENG ([phone])[facility])[address] [place] [address] MCHC 33.5 % Normal 30.5-36.0 [facility] Comment on above: Performed By: #### L AB294 ####Online Banking Specialist: SOL ZENG ([phone])[facility])[address] [place] [address] MCV (RBC) [Entitic vol] 91.5 fL Normal 77.0-99.0 [facility] Comment on above: Performed By: #### L AB294 ####Online Banking Specialist: SOL ZENG ([phone])[facility])[address] [place] [address] Platelet mean volume (Bld) [Entitic vol] 9.0 fL Normal 9.0-12.7 [facility] Comment on above: Performed By: #### L AB294 ####Online Banking Specialist: SOL ZENG ([phone])[facility])[address] [place] [address] Platelets (Bld) [#/Vol] 338 10*3/uL Normal 140-440 [facility] Comment on above: Performed By: #### L AB294 ####Online Banking Specialist: SOL ZENG ([phone])[facility])[address] [place] [address] RBC (Bld) [#/Vol] 3.88 10*6/uL Normal 3.80-5.20 [facility] Comment on above: Performed By: #### L AB294 ####Online Banking Specialist: SOL ZENG ([phone])[facility])[address] [place] [address] WBC (Bld) [#/Vol] 6.8 10*3/uL Normal 3.6-10.7 [facility] Comment on above: Performed By: #### L AB294 ####Online Banking Specialist: SOL ZENG ([phone])[facility])[address] [place] [address] CBC panel Auto (Bld)Ordered By: Jessica Burns on 08-11-2024 Erythrocyte distribution width (RBC) [Ratio] 12.3 % 11.5 - 15.0 % [facility] Hematocrit (Bld) [Volume fraction] 35.5 % 35.0 - 47.0 % [facility] Hemoglobin (Bld) [Mass/Vol] 11.9 g/dL 11.7 - 16.0 g/dL [facility] Interpretation and review of laboratory results Normal [facility] MCH (RBC) [Entitic mass] 30.7 pg 26.0 - 34.0 pg [facility] MCHC (RBC) [Mass/Vol] 33.5 % 30.5 - 36.0 % [facility] MCV (RBC) [Entitic vol] 91.5 fL 77.0 - 99.0 fL [facility] Platelet mean volume (Bld) [Entitic vol] 9 fL 9.0 - 12.7 fL [facility] Platelets (Bld) [#/Vol] 338 10*3/uL 140 - 440 10*3/uL [facility] RBC (Bld) [#/Vol] 3.88 10*6/uL 3.80 - 5.20 10*6/uL [facility] WBC (Bld) [#/Vol] 6.8 10*3/uL 3.6 - 10.7 10*3/uL [facility] Laboratory - Chemistry and C hemistry - challengeon 08-11-2024 Magnesium [Mass/Vol] 1.8 mg/dL 1.6 - 2 .3 mg/dL [facility] MAGNESIUMon 08-11-2024 Magnesium [Mass/Vol] 1.8 mg/dL Normal 1.6-2.3 [facility] Comment on above: Performed By: #### L AB15, [id number] ####Online Banking Specialist: SOL ZENG ([phone])[facility] ([address] Magnesium [Mass/Vol]on 08-11 Interpretation and review of laboratory results Normal [facility] No Panel Informationon 08-11 [facility] Progress Noteon 08-11-2024 Progress Note Normal [facility] Progress Note Normal [facility] [id number] 08-10-2024 [id number] Normal [facility] BASIC METABOLIC PANELon Anion gap [Moles/Vol] 7 mmol/L Normal 3-13 [facility] Comment on above: Performed By: #### L AB103, LAB15 ####Online Banking Specialist: SOL ZENG ([phone])[facility])[address] [place] [address] Calcium [Mass/Vol] 8.2 mg/dL Low 8.4-10.4 [facility] Comment on above: Performed By: #### L AB103, LAB15 ####Online Banking Specialist: SOL ZENG ([phone])[facility] ([facility])[address] [place] [address] Chloride [Moles/Vol] 106 mmol/L Normal 98-107 [facility] Comment on above: Performed By: #### L AB103, LAB15 ####Online Banking Specialist: SOL ZENG ([phone])[facility] ([facility])[address] [place] [address] CO2 [Moles/Vol] 18 mmol/L Low 22-30 [facility] Comment on above: Performed By: #### L AB103, LAB15 ####Online Banking Specialist: SOL ZENG ([phone])[facility] ([facility])[address] [place] [address] Creatinine [Mass/Vol] 0.40 mg/dL Low 0.52-1.04 [facility] Comment on above: Performed By: #### L AB103, LAB15 ####Online Banking Specialist: SOL ZENG ([phone])[facility])[address] [place] [address] GLOMERULAR FILTRATION RATE ML/MIN/1.73 SQ M.PREDICTED >90.0 Normal >60.0 [facility] Comment on above: Result Comment: Calc ulation based on the Chronic Kidney Disease Epidemiology Collaboration (CKD-EPI) equation refit without adjustment for raceORDER COMMENTS:Slightly Hemolyzed. Interpret Potassium with caution. Performed By: #### L AB103, LAB15 ####Online Banking Specialist: SOL ZENG ([phone])[facility] ([facility])[address] [place] [address] Glucose [Mass/Vol] 92 mg/dL Normal 70-100 [facility] Comment on above: Performed By: #### L AB103, LAB15 ####Online Banking Specialist: SOL ZENG ([phone])[facility] ([facility])[address] [place] [address] Potassium [Moles/Vol] 4.1 mmol/L Normal 3.5-5.1 [facility] Comment on above: Performed By: #### L AB103, LAB15 ####Online Banking Specialist: SOL ZENG ([phone])[facility] ([facility])[address] [place] [address] Sodium [Moles/Vol] 132 mmol/L Low 135-145 [facility] Comment on above: Performed By: #### L AB103, LAB15 ####Online Banking Specialist: SOL ZENG ([phone])[facility] ([facility])[address] [place] [address] Urea nitrogen [Mass/Vol] 4 mg/dL Low 7-17 [facility] Comment on above: Performed By: #### L AB103, LAB15 ####Online Banking Specialist: SOL ZENG ([phone])[facility] ([facility])[address] [place] [address] Basic metabolic 1998 panelon 08-10-2024 Anion gap [Moles/Vol] 7 mmol/L 3 - 13 mmol/L [facility] Calcium [Mass/Vol] 8.2 mg/dL Low 8.4 - 10. 4 mg/dL [facility] Chloride [Moles/Vol] 106 mmol/L 98 - 10 7 mmol/L [facility] CO2 [Moles/Vol] 18 mmol/L Low 22 - 30 mmol/L [facility] Creatinine [Mass/Vol] 0.4 mg/dL Low 0.52 - 1.04 mg/dL [facility] GFR/1.73 sq M.predicted (S/P/Bld) [Vol rate/Area] - PINF [facility] Comment on above: Calculation based on the Chronic Kidney Disease Epidemiology Collaboration (CKD-EPI) equation refit without adjustment for race Glucose [Mass/Vol] 92 mg/dL 70 - 100 mg/dL [facility] Interpretation and review of laboratory results Abnormal [facility] Potassium [Moles/Vol] 4.1 mmol/L 3.5 - 5.1 mmol/L [facility] Sodium [Moles/Vol] 132 mmol/L Low 135 - 145 mmol/L [facility] Urea nitrogen [Mass/Vol] 4 mg/dL Low 7 - 17 mg/dL [facility] Slightly Hemolyzed. Interpret Potassium with caution. [facility] CBC (HEMOGRAM)on 08-10-2024 Erythrocyte distribution width (RBC) [Ratio] 12.3 % Normal 11.5-15.0 [facility] Comment on above: Performed By: #### L AB294 ####Online Banking Specialist: SOL ZENG ([phone])[address] Hematocrit (Bld) [Volume fraction] 31.9 % Low 35.0-47.0 [facility] Comment on above: Performed By: #### L AB294 ####Online Banking Specialist: SOL ZENG ([phone])[facility])[address] [place] [address] Hemoglobin (Bld) [Mass/Vol] 10.7 g/dL Low 11.7-16.0 [facility] Comment on above: Performed By: #### L AB294 ####Online Banking Specialist: SOL ZENG ([phone])[address] MCH (RBC) [Entitic mass] 30.9 pg Normal 26.0-34.0 [facility] Comment on above: Performed By: #### L AB294 ####Online Banking Specialist: SOL ZENG ([phone])[facility])[address] [place] [address] MCHC 33.5 % Normal 30.5-36.0 [facility] Comment on above: Performed By: #### L AB294 ####Online Banking Specialist: SOL ZENG ([phone])[facility])[address] [place] [address] MCV (RBC) [Entitic vol] 92.2 fL Normal 77.0-99.0 [facility] Comment on above: Performed By: #### L AB294 ####Online Banking Specialist: SOL ZENG ([phone])[facility] ([facility])[address] [place] [address] Platelet mean volume (Bld) [Entitic vol] 9.3 fL Normal 9.0-12.7 [facility] Comment on above: Performed By: #### L AB294 ####Online Banking Specialist: SOL ZENG ([phone])[facility] ([facility])[address] [place] [address] Platelets (Bld) [#/Vol] 223 10*3/uL Normal 140-440 [facility] Comment on above: Performed By: #### L AB294 ####Online Banking Specialist: SOL ZENG ([phone])[facility] ([facility])[address] [place] [address] RBC (Bld) [#/Vol] 3.46 10*6/uL Low 3.80-5.20 [facility] Comment on above: Performed By: #### L AB294 ####Online Banking Specialist: SOL ZENG ([phone])[facility] ([facility])[address] [place] [address] WBC (Bld) [#/Vol] 6.3 10*3/uL Normal 3.6-10.7 [facility] Comment on above: Performed By: #### L AB294 ####Online Banking Specialist: SOL ZENG ([phone])[facility] ([facility])[address] [place] [address] CBC panel Auto (Bld)on 08-10 Erythrocyte distribution width (RBC) [Ratio] 12.3 % 11.5 - 15.0 % [facility] Hematocrit (Bld) [Volume fraction] 31.9 % Low 35.0 - 47.0 % [facility] Hemoglobin (Bld) [Mass/Vol] 10.7 g/dL Low 11.7 - 16.0 g/dL [facility] Interpretation and review of laboratory results Abnormal [facility] MCH (RBC) [Entitic mass] 30.9 pg 26.0 - 34.0 pg [facility] MCHC (RBC) [Mass/Vol] 33.5 % 30.5 - 36.0 % [facility] MCV (RBC) [Entitic vol] 92.2 fL 77.0 - 99.0 fL [facility] Platelet mean volume (Bld) [Entitic vol] 9.3 fL 9.0 - 12.7 fL [facility] Platelets (Bld) [#/Vol] 223 10*3/uL 140 - 440 10*3/uL [facility] RBC (Bld) [#/Vol] 3.46 10*6/uL Low 3.80 - 5.20 10*6/uL [facility] WBC (Bld) [#/Vol] 6.3 10*3/uL 3.6 - 10.7 10*3/uL [facility] Consulton 08-10-2024 Consult Normal [facility] Hepatic function 2000 panelo n 08-10-2024 Albumin [Mass/Vol] 4 g/dL 3.5 - 5.0 g/dL [facility] ALP [Catalytic activity/Vol] 60 U/L 38 - 126 U/L [facility] ALT [Catalytic activity/Vol] 32 U/L 0 - 34 U/L [facility] AST [Catalytic activity/Vol] 52 U/L High 15 - 46 U/L [facility] Bilirubin [Mass/Vol] 0.6 mg/dL 0.2 - 1 .3 mg/dL [facility] Bilirubin.conjugated [Mass/Vol] 0 mg/dL 0.0 - 0.3 mg/dL [facility] Interpretation and review of laboratory results Abnormal [facility] Protein [Mass/Vol] 6.8 g/dL 6.3 - 8.2 g/dL [facility] Laboratory - Chemistry and C hemistry - challengeon 08-10-2024 Magnesium [Mass/Vol] 2.1 mg/dL 1.6 - 2 .3 mg/dL [facility] MAGNESIUMon 08-10-2024 Magnesium [Mass/Vol] 2.1 mg/dL Normal 1.6-2.3 [facility] Comment on above: Result Comment: VERA Dickey COMMENTS:Slightly Hemolyzed. Interpret Magnesium with caution. Performed By: #### L AB103, LAB15 ####Online Banking Specialist: SOL ZENG ([phone])[facility] ([facility] Magnesium [Mass/Vol]on 08-10 Interpretation and review of laboratory results Normal [facility] Slightly Hemolyzed. Interpret Magnesium with caution. [facility] No Panel Informationon 08-10 [facility] Progress Noteon 08-10-2024 Progress Note Normal [facility] Progress Note Normal [facility] 30on 08-09-2024 30 Normal [facility] [id number] 08-09-2024 [id number] Normal [facility] Basic metabolic 1998 panelon 08-09-2024 Anion gap [Moles/Vol] 6 mmol/L 3 - 13 mmol/L [facility] Calcium [Mass/Vol] 8.2 mg/dL Low 8.4 - 10. 4 mg/dL [facility] Chloride [Moles/Vol] 106 mmol/L 98 - 10 7 mmol/L [facility] CO2 [Moles/Vol] 22 mmol/L 22 - 30 mmol/L [facility] Creatinine [Mass/Vol] 0.46 mg/dL Low 0.52 - 1.04 mg/dL [facility] GFR/1.73 sq M.predicted (S/P/Bld) [Vol rate/Area] - PINF [facility] Comment on above: Calculation based on the Chronic Kidney Disease Epidemiology Collaboration (CKD-EPI) equation refit without adjustment for race Glucose [Mass/Vol] 114 mg/dL High 70 - 100 mg/dL [facility] Interpretation and review of laboratory results Abnormal [facility] Potassium [Moles/Vol] 3.6 mmol/L 3.5 - 5.1 mmol/L [facility] Sodium [Moles/Vol] 134 mmol/L Low 135 - 145 mmol/L [facility] Urea nitrogen [Mass/Vol] 4 mg/dL Low 7 - 17 mg/dL [facility] CBC panel Auto (Bld)on 08-09 Erythrocyte distribution width (RBC) [Ratio] 12.2 % 11.5 - 15.0 % [facility] Hematocrit (Bld) [Volume fraction] 31.8 % Low 35.0 - 47.0 % [facility] Hemoglobin (Bld) [Mass/Vol] 10.5 g/dL Low 11.7 - 16.0 g/dL [facility] Interpretation and review of laboratory results Abnormal [facility] MCH (RBC) [Entitic mass] 30.2 pg 26.0 - 34.0 pg [facility] MCHC (RBC) [Mass/Vol] 33 % 30.5 - 36.0 % [facility] MCV (RBC) [Entitic vol] 91.4 fL 77.0 - 99.0 fL [facility] Platelet mean volume (Bld) [Entitic vol] 9.2 fL 9.0 - 12.7 fL [facility] Platelets (Bld) [#/Vol] 258 10*3/uL 140 - 440 10*3/uL [facility] RBC (Bld) [#/Vol] 3.48 10*6/uL Low 3.80 - 5.20 10*6/uL [facility] WBC (Bld) [#/Vol] 10.7 10*3/uL 3.6 - 10.7 10*3/uL [facility] HEPATIC FUNCTION PANELon Albumin [Mass/Vol] 4.0 g/dL Normal 3.5-5.0 [facility] Comment on above: Performed By: #### L AB103, LAB20 ####Online Banking Specialist: SOL ZENG ([phone])[address] ALP [Catalytic activity/Vol] 60 U/L Normal 38-126 [facility] Comment on above: Performed By: #### L AB103, LAB20 ####Online Banking Specialist: SOL ZENG ([phone])[facility])[address] [place] [address] ALT [Catalytic activity/Vol] 32 U/L Normal 0-34 [facility] Comment on above: Performed By: #### L AB103, LAB20 ####Online Banking Specialist: SOL ZENG ([phone])[facility])[address] [place] [address] AST [Catalytic activity/Vol] 52 U/L High 15-46 [facility] Comment on above: Performed By: #### L AB103, LAB20 ####Online Banking Specialist: SOL ZENG ([phone])[facility])[address] [place] [address] Bilirubin [Mass/Vol] 0.6 mg/dL Normal 0.2-1.3 [facility] Comment on above: Performed By: #### L AB103, LAB20 ####Online Banking Specialist: SOL ZENG ([phone])[facility])[address] [place] [address] Bilirubin.indirect [Mass/Vol] 0.0 mg/dL Normal 0.0-0.3 [facility] Comment on above: Performed By: #### L AB103, LAB20 ####Online Banking Specialist: SOL ZENG ([phone])[facility])[address] [place] [address] Protein [Mass/Vol] 6.8 g/dL Normal 6.3-8.2 [facility] Comment on above: Performed By: #### L AB103, LAB20 ####Online Banking Specialist: SOL ZENG ([phone])[facility])[address] [place] [address] Laboratory - Chemistry and C hemistry - challengeon 08-09-2024 Magnesium [Mass/Vol] 1.9 mg/dL 1.6 - 2 .3 mg/dL [facility] MAGNESIUMon 08-09-2024 Magnesium [Mass/Vol] 1.9 mg/dL Normal 1.6-2.3 [facility] Comment on above: Performed By: #### L AB103, LAB20 ####Online Banking Specialist: SOL ZENG ([phone])[facility])[address] [place] [address] Magnesium [Mass/Vol]on 08-09 Interpretation and review of laboratory results Normal [facility] No Panel InformationOrdered By: Vishal Birch on 08-09-2024 Case Report Surgical Pathology C ase: [id number] Authorizing Provider: Serafin Taylor DO Collected: 08/07/[id number] Ordering Location: [facility] MAIN OR Received: 08/08/2024 0715 Pathologist: Vishal Birch MD Specimens: A) - Abdominal Wall, ABDOMINAL SOFT TISSUE MASS B) - MESH FOR GROSS; ABDOMINAL WALL C) - Abdominal Wall, HERNIA SAC D) - Abdominal Wall, CENTRAL PANNUS [employer] Phone: Clinical Information [id number] wMlxhbnNp HUFwcDTnT5VczzofNCrvYE2cCY8y pXsupRNjhMKnQSNyZgIjx8kzg175 zOPbk5adCKZYAVoeNYCGIZq7vXds M70vt4M0DctlG3feWGLzRShfEKCc RBaxbPChIRy3JMMnrBVjdxBaEgXi TBVxgZYdeYM8MMJcGC4nzyjzCZlq KUmfWZXuzzY8RQJwvNLzM2QoPTPh TK4odzdfAOQ6NNlgVXQkVML2AvXn ASFck9Ybzmt1GmZqcEZwJJaokZPa ijupeuPuXBAoWRIADG18ypMfTQif lr2tXLE2xBFyb8F5KJ9yh0AjuJD2 iL6iUP1rPMthtupmQX0jNG2mIiOr SsxlN8qOSC1hOR3ACU1eI3QzPSEx cGFyfQ== [employer] Work Phone: Disclaimer k6sfxYWlONCbfCLlQeBw MDAwXGFu a9etSMQcnVMwYsXkKcTlHqDuZxmw iXPhMAVqNsCma0ueh084dKUyo9ga YZJrUiK3aLBiYFJgQ13aBDYCR254 FPApXIuqt3nvc9PoUDDlrAFnc1D2 KIODGZzaLGZMEPe9hCtkF45fo7L3 LcfsW2aoCTWzNTKqA0NwFP5rLGXx Amz5KRG8DLR8BXDtNOVxZ1LuTY3g HRDkwYDmLRx2w8tdnVtwJIDoVEA9 a4xaJRvpihUzWL4iud2oeJz7v7sc frSzHWCmBCDsmMHCZRKoT9InfJba Iz7pxTz5tAaoSbxxYYB3Gxy3CF7h yz34nox9nQqkBKWazrlgKpC1NDpv XLGmkvluRNl6JGpjHORyqKH1EQFb jQMuD4BrDOXtQD9yimz5BQE6NXfh YBBrHcW6VOTodPIvCSNfrRyeYWem y104ZJR3DfTaYY8iQ3Hnb9B9lJ5x fCVvGJYtkQVzGqZiBZWxnn0drGEp ZTxhe1GxGPO1nhO6oUEieJIsTVOh LY43Raxzd9VdLejhGKZ5JIXbayQm x9Xoq3vjYpVvbvKpD9ufX3IlAKPu YXApEJFrToFipfIvz2Jzs1IpaAYs oId1l8xxRVOgMMXtxTpaw9tmJKS8 ZBSzY0X1cJSgb7dsNDmaEFAryQT2 gmI7DKPsaCXiL1LgnY9lLMQqLE6m wyy5n6lbZEN1OSmsOPPiJmM3twW1 VIGppFUdYAJggJueTQvna475GRG3 IcRjZHJyh2WcB2PpkSgeW65gkJgh X51aYFQwsBovxF4ibQhvqF0oCxFg ZnMyNFxxbFxwbGFpblxmMVxmczE2 IXxzapykCZAvOStyW3qeDoVbCSJl lGymUTrmz7DkDNQpNBIzKVSmEObo N1qxrN5vubztJSspPLNjnFgpg3ol IjAmeSA2BY8rvsXlCBFrnFcgudV1 vsZkkTdnkF9xiC4hpWmcrT9zdRIl cAM9eevuAXruQWNstTGzbRwwftuw nOpqkDtdidyslF7cCNL5iFViADJ4 pNMbGOItUJNrQZYafW19gb6ewIHt ehYjX2OiF4ZngXIjsJhgEccbjDHn lWLrKl5dqTDbBL3eBEDviZWeB5Kt GR2fCPCqqhaoHPEwLWhtIIQeYPPe SsYazgZzx2YouG6aGFVqPMMsDX24 yeUvwtL5uANqIAVxvsHgaWJkdGTj aXMgcmVndWxhdGVkIGFzIGFuIGFu OKx5rVBmn9SiV4onaSHkcqZoV9Ne cDCnSVRQLI0rHChqf2ApqEOmfBRn o6HcRZEzFLWwqN6uUZVjOZ9uEHCm OJjqUADmkjFqrt3ypcVvOVBpHZRu H7IjoeznwTlqzqDtIKLahl3oxgKw JMH0EARfHRVtkThxwCIkhPBjNTYu yiM6k3SxOTWfg8HmJ4RcsWQhZGKf mWStQHY2j0BfwZ5nLZtplEDqRIJb LM9ugKTvJTUqGXHwBXGmXIYoRbke qDosBZJTPOVnb2LeZN1pYTBuyLhi TOLtwJ3ef5YgHUKns55jKXLDNLmn IFRoZSBGREEgaGFzIGRldGVybWlu ZTIdiJyncSXcrDGoOHIhMZKpXQ8q BEYzqyPqyFLtt1QzhNExszJji2Da gnEhLPEiCHI5NnCtkXQcCBGtnbIQ rWzbuA1pvA8xv8ZwlM7yIDrnzxDv fXEdBh8txDOqVI0cAMOfrgDkHkff YKRoBuIsZEUmRTRbh3M1OJ9eYZGh le9bzmoxnDDkjL0lkECctoMoUI8n EL1lB0B4iTIyCZIgawKnq6jiHZg5 wFWuSHOwsNZtmHNrXtgqVQN8HVOr TSD7yfZreqYrHOEuzRxlfAA6eNLz AUMjPHRlCWXfTD14W7Qot2QwN5ez AS41AMNsVVXrEEPisbDwv0tuHUMg p3itIKUgfPDiC0NeORCgxWFetduw NqVwIGK2GRFdODU8vRIeBRTfG3Je gSUtfWWbfA85AQ3uxSA7TF0eRGL6 DQnqlY6pDrFUaR37pn7zpOS2f1Ky GA1fT3OiIKPwa9A4xlSvOHAqHW3u dCBiZWVuIHZhbGlkYXRlZCBvbiBk YAMtlGNeMvvmNBZ8lLWdzXNjDfJS DSK7tRDaXLXrs1TbIMFwQSMfawRi ttWeXFDbKVO1qEImLRDsmSSno75l Z4i0XW1poDtrWDQnhVQyLZLzt3Pa aKQxcYd6gQMtFiPfKIutJBWuGYba dXt6zXI9IA2zHHAqK1XeR5scpCWt XXKfDBIooAEgrj5idCRjtT== [facility] Work Phone: Gross Description w5zzoBGfCQJsyCRoHKzf MlxhbnNp XGScyPCdN0OpzwdnUCibGE5pOL7y uAjscVJcgUXxOJTzWcDwx8ich842 qZZap1pmIFCZCXzdVQDCZBz1xYkh P23ix8W9LibbS74xlVNdGWO2QNSm YHBjiDFaDZZkCXI3YCUdsMGkR1kf FXQjXR0rfeaxHXqaZYynLPUvaLZ2 TQShsNTwQ5YkSFYfTTdgKKLlnlh9 NtIiHi1kwJCihJnoHWfrDACjZCPx OLsiBGFbHmTjKL8fmONaOSUlR0Sk fjPiNBlcXGGhpw6bnQdqQZofFqJj OALuFwZdQG1jyX1laNZum0L7IXUp q5T3LXAwVORsNoEsgrRmLSShnBLs KKhdPB4hBWXjPAWqVZ2tiTDyeGWl bC7kiBphbqHyToVtydLayMJ8lHE8 OVMdyJLxoJIxoXKzOpghgb0mNEK2 vN5veMVsLXBvbabts07zoMI7bFPi zMNke5d7pXRcurZxfa5qqfCmTXRe XjRsJyFxroTxON24HQVdvjWlq7Dx aUcfwwGri7MvjKq9uEQqDAzqRX1v QLZjDVIaUAQ4HA1nSYVhigtpMSJt Bp8hfYBhXZAzG1WktpEbYAorGFZi fi9uuHiqANpnSbKgFNNvQs9hh6xb Dn2cAZoll5BaXpHybbArOCQ2TyMl fMQdMVD5TEYmRMMmtCZfdV4zSSA3 vyOnMWFfxIXuaVXaEmUodG78cTU1 zXIjiJCrnXInIJMnlhurpXZ7qSKr SLWls10wiTnxPS6xvA94MG8vIKU6 jQEgnHWvAGUbOzPmFGIiwH5zTYX4 wEDtqDQxGYTXctCgKUF5wU5stmNz taKcc3ZixQd9vJStMVXmyt2bavQf mOZxfH8lpNkmviJkngq8DqYcMGQc wxeoUINrKo3klZXrYJJdF3PcveEz ZSmaYNJvkz1uiLdyRFdrRzMgRZKa Sjntfg2oXOSmGCNtOUnmGQUdEgJl yUUkXN06MRhtHP7rJIVjCNPkrVT2 gJnmg89mx3SyJYcfmgYoLIFqXA3n PBSdAV3qbH8hJAIsINC1heUvYpGg iASzh23pkTKpEV2ewPWmNICpKUIw cH8qGWSyEsLdkRmig7SvXRumvBje KAV1LQZrDYUaFAGgkO9hIZI9qIAs tFPaKNAVyNHwq7IcG0xmQD2kHXVg MCJoXIO6dL4mJYFwxcN5SWYetG4q UJIvAfVvkZYcAUTrISPkhS5fKPL4 mTVpaOEqJUGginC2zYAmOI5oWJ7c x3NfbsXhUJAwSwTsPkAkvdXiAI93 GTBjayNbc8FoqJgzdpQrVGKxVNV2 No7foCOeEWEvvsM0eCRcOHOkRIXl XBR5TIXjAHxeGHKrdPZyPIOjYPJu ZjVDYHBdwFVqYAEnyaGiw1DoMKna ytXiMNSyfZCnLLLfUJ67otDmRXBr ta05flStZGXwGOQ0uhEguO6nFSIt qtPdt7D8gS2felWfXpHnt3voCX14 GMEfmQonNbJ4CRrku3wziEBlTQYc sxKdXPFtOGOhJWUaXLesj0DnXYZf k5Y4VWT4MDcruIdjIlC7TvuxNdBv xfQaS8kyUByqbIKmIHRXzVVkAMAz YSUavDSpACK3UTqeVXW3RNPxTAGv yREvnlXsCpUnoWR4DFocIsZlvY7z NHJevW0vb7UvUiOlOXWpOIIcVTXs twaueNGeZXNmMLX1coDijEFrt3Ve aNFkRKWSbWGxOUYriUVok2KgC6Fy e0VrGETbiPXgswLnZKXpRDDsaPEk uJCwu9WdYb0oDPMnGBJufNItl2Yj DnVeQTXaHFDpLGbmsRohto02HZ9n UKaaBeMkNESsACxrOgsrvp8wPNC6 iP5hrFHbNWFtliocGYYVpkCcPUTx VUNtJDFvQDFtPE2dSQCJJGCjCBRg hvDcoJb9TZGlGWS1qU3bmeKjfcDc a3TyhZz5gMMxTDchVIE3izFzIIJo ISV9HCSkKGVfsCYveW== [employer] Work Phone: Pathology report final diagnosis Narrative q9xlpYNtVTBnwQZaBGkgVkaekvDv AUQsrPIhC8YlopowFYaoTE9pRW7o oAyspOGmsZBwBYUqHxAil1ybk817 aQYmq7igUWKTIMhjGAIRCDj2yCay I42ph0N7NnzaF35yrNDuQJY1PDPh AEOgpAPkQFSnEWM4ZFBxdKZcV0vk IQHdRQ8wudxmYVitVYhnWPSobSZ3 MYJmaHPuA2HhDZJeTYasLTXgduy2 NmUcDp5ziRIkjWahRPsmICKlEATk YWluXGZzMjBccGFyIEEuICBBQkRP YWpRZYqbR48FWGBEAJVJOBXiJBOC KjlvBPjNFYVQE400FMDznayfzlBy c3voXAKJJVyYRD3XGD2KGLaDSD6Q CtxCZ1sMUGRKGgfNNvSEEPmTG7EX JABAF4ABVPZBLHACWREEUCPIDGQH S6ZND5smEYYlhJBnOFPbMJRDWMRH ZTZVVC1RTnHAJnidZRNxYV0zCNXp NPLZAW5PAUYMUPWrWTTOJAVIOING PtsQYCJyO5KMU6SqXGsNB02XF1rQ AQ5CIFryILXeyqdpFWRiZq0vBOuP Ua5XROTIQSFzWPSLW8eCLM3PGkao TMSwZM5cRNOmGLLDFD1HS15wAqcG Nu8BJR4HStFRG8YCIYMDZ8SFRWHY G88NOIXWCC9HCKnSPRvzPHSEAsiD QYRKZ0msWRWeuZXrNLKbVGUFES6B PfAABRKEKg9GDpqoQPpPMIODB981 SYYfcilfjzHck6epTCFIBtkFPvLQ V1gCFYSTJHIUMpZZJBWJJ8SZPLLr BJWAJL5BWHNWGLRULSXmzSMnfO== [facility] Work Phone: [facility] Work Phone: Basic metabolic 1998 panelon 08-08-2024 Anion gap [Moles/Vol] 8 mmol/L 3 - 13 mmol/L [facility] [employer] Calcium [Mass/Vol] 8.3 mg/dL Low 8.4 - 10. 4 mg/dL [employer] Chloride [Moles/Vol] 107 mmol/L 98 - 10 7 mmol/L [facility] [employer] CO2 [Moles/Vol] 19 mmol/L Low 22 - 30 mmol/L [facility] [employer] Creatinine [Mass/Vol] 0.44 mg/dL Low 0.52 - 1.04 mg/dL [employer] GFR/1.73 sq M.predicted (S/P/Bld) [Vol rate/Area] - PINF [facility] Comment on above: Calculation based on the Chronic Kidney Disease Epidemiology Collaboration (CKD-EPI) equation refit without adjustment for race Glucose [Mass/Vol] 157 mg/dL High 70 - 100 mg/dL [facility] [employer] Interpretation and review of laboratory results Abnormal [employer] Potassium [Moles/Vol] 3.9 mmol/L 3.5 - 5.1 mmol/L [facility] [facility] [employer] Sodium [Moles/Vol] 134 mmol/L Low 135 - 145 mmol/L [employer] [facility] [employer] Urea nitrogen [Mass/Vol] 9 mg/dL 7 - 17 mg/dL [facility] [employer] Slightly Hemolyzed. Interpret K+ with caution. [employer] [facility] [employer] Anion gap [Moles/Vol] 7 mmol/L 3 - 13 mmol/L [facility] [employer] Calcium [Mass/Vol] 8.2 mg/dL Low 8.4 - 10. 4 mg/dL [facility] Chloride [Moles/Vol] 107 mmol/L 98 - 10 7 mmol/L [facility] CO2 [Moles/Vol] 21 mmol/L Low 22 - 30 mmol/L [facility] Creatinine [Mass/Vol] 0.49 mg/dL Low 0.52 - 1.04 mg/dL [facility] GFR/1.73 sq M.predicted (S/P/Bld) [Vol rate/Area] - PINF [facility] Comment on above: Calculation based on the Chronic Kidney Disease Epidemiology Collaboration (CKD-EPI) equation refit without adjustment for race Glucose [Mass/Vol] 142 mg/dL High 70 - 100 mg/dL [facility] Potassium [Moles/Vol] 3.8 mmol/L 3.5 - 5.1 mmol/L [facility] Sodium [Moles/Vol] 135 mmol/L 135 - 145 mmol/L [facility] Urea nitrogen [Mass/Vol] 9 mg/dL 7 - 17 mg/dL [facility] Slightly Hemolyzed. Interpret K+ with caution. [facility] CBC W Auto Differential pane l (Bld)Ordered By: Tom Cespedes on 08-08-2024 Erythrocyte distribution width (RBC) [Ratio] 12.2 % 11.5 - 15.0 % [facility] Hematocrit (Bld) [Volume fraction] 35.7 % 35.0 - 47.0 % [facility] Hemoglobin (Bld) [Mass/Vol] 11.8 g/dL 11.7 - 16.0 g/dL [facility] Interpretation and review of laboratory results Abnormal [facility] MCH (RBC) [Entitic mass] 31.1 pg 26.0 - 34.0 pg [facility] MCHC (RBC) [Mass/Vol] 33.1 % 30.5 - 36.0 % [facility] MCV (RBC) [Entitic vol] 94.2 fL 77.0 - 99.0 fL [facility] Platelet mean volume (Bld) [Entitic vol] 9.2 fL 9.0 - 12.7 fL [facility] Platelets (Bld) [#/Vol] 260 10*3/uL 140 - 440 10*3/uL [facility] RBC (Bld) [#/Vol] 3.79 10*6/uL Low 3.80 - 5.20 10*6/uL [facility] WBC (Bld) [#/Vol] 10.7 10*3/uL 3.6 - 10.7 10*3/uL [facility] CBC panel Auto (Bld)on 08-08 Erythrocyte distribution width (RBC) [Ratio] 12.1 % 11.5 - 15.0 % [facility] Hematocrit (Bld) [Volume fraction] 36.3 % 35.0 - 47.0 % [facility] Hemoglobin (Bld) [Mass/Vol] 12.3 g/dL 11.7 - 16.0 g/dL [facility] Interpretation and review of laboratory results Abnormal [facility] MCH (RBC) [Entitic mass] 30.8 pg 26.0 - 34.0 pg [facility] MCHC (RBC) [Mass/Vol] 33.9 % 30.5 - 36.0 % [facility] MCV (RBC) [Entitic vol] 90.8 fL 77.0 - 99.0 fL [facility] Platelet mean volume (Bld) [Entitic vol] 9.3 fL 9.0 - 12.7 fL [facility] Platelets (Bld) [#/Vol] 270 10*3/uL 140 - 440 10*3/uL [facility] RBC (Bld) [#/Vol] 4 10*6/uL 3.80 - 5.20 10*6/uL [facility] WBC (Bld) [#/Vol] 13 10*3/uL High 3.6 - 10.7 10*3/uL [facility] Laboratory - Chemistry and C hemistry - challengeon 08-08-2024 Magnesium [Mass/Vol] 1.5 mg/dL Low 1.6 - 2 .3 mg/dL [facility] Laboratory - Hematology and Cell countson 08-08-2024 Band form neutrophils (Bld) [#/Vol] 1.5 10*3/uL High NINF - 0.0 10*3/uL [facility] Band form neutrophils/100 WBC (Bld) 14 % High NINF - 0 % [facility] Lymphocytes (Bld) [#/Vol] 1.1 10*3/uL 1.0 - 4.3 10*3/uL [facility] Lymphocytes/100 WBC (Bld) 10 % Low 15 - 45 % [facility] Monocytes (Bld) [#/Vol] 1.2 10*3/uL High 0.0 - 0.9 10*3/uL [facility] Monocytes/100 WBC (Bld) 11 % 5 - 13 % [facility] Neutrophils (Bld) [#/Vol] 8.5 10*3/uL High 1.8 - 7.5 10*3/uL [facility] Ovalocytes LM Ql (Bld) Slight Abnormal (none) [facility] Poikilocytosis LM Ql (Bld) Slight Abnormal (none) [facility] RBC morphology finding Nom (Bld) abnormal [facility] Segmented neutrophils/100 WBC (Bld) 65 % 38 - 82 % [facility] Magnesium [Mass/Vol]on 08-08 Slightly Hemolyzed. Interpret Magnesium with caution. [facility] No Panel Informationon 08-08 Atypical Lymphocytes Manual [facility] Bands Manual 14 [facility] Basophils Manual [facility] Blasts Manual [facility] Eosinophils Manual [facility] Interpretation and review of laboratory results Abnormal [facility] Lymphocytes Manual 10 [facility] Metamyelocytes Manual [facility] Monocytes Manual 11 [facility] Myelocytes Manual [facility] Neutrophils Manual 66 [facility] Promyelocytes Manual [facility] Unclassified Cells, Manual [facility] Interpretation and review of laboratory results Abnormal [facility] Blood type and Crossmatch pa richard (Bld)on 08-07-2024 ABO group Nom (Bld) A [facility] Blood group antibody screen GEL Ql Negative [facility] D Ag Ql (RBC) Positive [facility] CBC panel Auto (Bld)on 08-07 Erythrocyte distribution width (RBC) [Ratio] 12.5 % 11.5 - 15.0 % [facility] Hematocrit (Bld) [Volume fraction] 38.2 % 35.0 - 47.0 % [facility] Hemoglobin (Bld) [Mass/Vol] 12.9 g/dL 11.7 - 16.0 g/dL [facility] Interpretation and review of laboratory results Abnormal [facility] MCH (RBC) [Entitic mass] 31.2 pg 26.0 - 34.0 pg [facility] MCHC (RBC) [Mass/Vol] 33.8 % 30.5 - 36.0 % [facility] MCV (RBC) [Entitic vol] 92.5 fL 77.0 - 99.0 fL [facility] [employer] Platelet mean volume (Bld) [Entitic vol] 8.8 fL Low 9.0 - 12.7 fL [facility] [employer] Comment on above: MPV is a calculated measurement using platelet volume ratio Platelets (Bld) [#/Vol] 301 10*3/uL 140 - 440 10*3/uL [facility] [employer] RBC (Bld) [#/Vol] 4.13 10*6/uL 3.80 - 5.20 10*6/uL [facility] [employer] WBC (Bld) [#/Vol] 11.8 10*3/uL High 3.6 - 10.7 10*3/uL [facility] CT Abdomen and Pelvis W cont rast Oscar 08-07-2024 Patient Name: MEL WALL : 1985 Exam Date/Time: 08/07/2024 03:34 Procedure: CT ABDOMEN PELVIS W CONTRAST Ordering Provider: PAN NICHOLAS Reason For Exam: pain and vomiting associated with abdominal hernia HISTORY: Pain and vomiting associated with ventral hernia Noncontrast sections performed through the abdomen and pelvis. Dose reduction was employed with automatic exposure control. Comparison study from 07/08/2024 FINDINGS: 1. Large ventral hernia containing small bowel and right colon---moderate stool is present in the colon with prior small bowel surgery changes. There is a tubular fluid-filled structure in the right hand side with surrounding streak-like densities most suggestive of ACUTE APPENDICITIS (best seen on sagittal reconstructions). 2. Punctate right renal calculi, bilateral renal cortical lesions unchanged since last study one month ago with prior cholecystectomy, tubal ligation clips with tampon with no free fluid or free air in the pelvis. Report Dictated on Electronically Signed By: Satish Devine MD Electronically Signed Date/Time: 08/07/2024 4:05 AM [facility] Satish Devine MD - 08/07/2024 Patient Name: MEL WALL : 1985 Exam Date/Time: 08/07/2024 03:34 Procedure: CT ABDOMEN PELVIS W CONTRAST Ordering Provider: PAN NICHOLAS Reason For Exam: pain and vomiting associated with abdominal hernia HISTORY: Pain and vomiting associated with ventral hernia Noncontrast sections performed through the abdomen and pelvis. Dose reduction was employed with automatic exposure control. Comparison study from 07/08/2024 FINDINGS: 1. Large ventral hernia containing small bowel and right colon---moderate stool is present in the colon with prior small bowel surgery changes. There is a tubular fluid-filled structure in the right hand side with surrounding streak-like densities most suggestive of ACUTE APPENDICITIS (best seen on sagittal reconstructions). 2. Punctate right renal calculi, bilateral renal cortical lesions unchanged since last study one month ago with prior cholecystectomy, tubal ligation clips with tampon with no free fluid or free air in the pelvis. Report Dictated on Electronically Signed By: Satish Devine MD Electronically Signed Date/Time: 08/07/2024 4:05 AM EDT [facility] Radiology Study observation (narrative) [facility] CT Abdomen and Pelvis W cont rast IVOrdered By: Satish Devine on 08-07-2024 [facility] [employer] Work Phone: Comprehensive metabolic 1998 panelon 08-07-2024 Albumin [Mass/Vol] 3.9 g/dL 3.5 - 5.0 g/dL [facility] ALP [Catalytic activity/Vol] 39 U/L 38 - 126 U/L [facility] ALT [Catalytic activity/Vol] 11 U/L 0 - 34 U/L [facility] Anion gap [Moles/Vol] 8 mmol/L 3 - 13 mmol/L [facility] AST [Catalytic activity/Vol] 18 U/L 15 - 46 U/L [facility] Bilirubin [Mass/Vol] 0.3 mg/dL 0.2 - 1 .3 mg/dL [facility] Calcium [Mass/Vol] 8.8 mg/dL 8.4 - 10. 4 mg/dL [facility] Chloride [Moles/Vol] 108 mmol/L High 98 - 10 7 mmol/L [facility] CO2 [Moles/Vol] 20 mmol/L Low 22 - 30 mmol/L [facility] Creatinine [Mass/Vol] 0.52 mg/dL 0.52 - 1.04 mg/dL [facility] GFR/1.73 sq M.predicted (S/P/Bld) [Vol rate/Area] - PINF [facility] Comment on above: Calculation based on the Chronic Kidney Disease Epidemiology Collaboration (CKD-EPI) equation refit without adjustment for race Glucose [Mass/Vol] 117 mg/dL High 70 - 100 mg/dL [facility] [employer] Interpretation and review of laboratory results Abnormal [facility] Potassium [Moles/Vol] 4.2 mmol/L 3.5 - 5.1 mmol/L [facility] Protein [Mass/Vol] 6.4 g/dL 6.3 - 8.2 g/dL [facility] Sodium [Moles/Vol] 136 mmol/L 135 - 145 mmol/L [facility] [facility] [employer] Urea nitrogen [Mass/Vol] 10 mg/dL 7 - 17 mg/dL [facility] [employer] Laboratory - Chemistry and C hemistry - challengeon 08-07-2024 Lactate [Moles/Vol] 1.2 mmol/L 0.7 - 2. 0 mmol/L [facility] [employer] HCG.beta subunit Qn Females <=5 mIU/mL [facility] Lipase [Catalytic activity/Vol] 117 U/L 23 - 300 U/L [facility] Laboratory - Coagulationon 1 PT Coag (Bld) [Time] 10.7 s 9.0 - 1 2.0 s [facility] Lipase [Catalytic activity/V ol]on 08-07-2024 Interpretation and review of laboratory results Normal [facility] No Panel InformationOrdered By: Rajinder Crouch on 08-07-2024 P [place] 268 degrees [facility] Work Phone: LA Interval 129 ms [facility] Work Phone: QRS [place] 81 degrees [facility] Work Phone: QRSD Interval 85 ms [facility] Work Phone: QT Interval 422 ms [facility] Work Phone: QTC Interval 440 ms [facility] Work Phone: T Wave [place] 40 degrees [facility] Work Phone: [facility] Work Phone: No Panel Informationon 08-07 Ectopic atrial rhyth m Low voltage, precordial leads No old ekg available for comparison Electronically Signed On 08-07-2024 13:30:02 EDT by Rajinder Sosa M D - 08/07/2024 IMPRESSION: Ectopic atrial rhythm Low voltage, precordial leads No old ekg available for comparison Electronically Signed On 08-07-2024 13:30:02 EDT by Rajinder Crouch [facility] Interpretation and review of laboratory results Normal [facility] Values in should double every 2 to 3 days for the first 6 weeks. Elevated concentrations of human chorionic gonadotropin (hCG) measured in the first trimester of are observed in normal , but may serve as an indication of chorionic carcinoma, hydatiform mole, or multiple . Decreasing hCG concentrations indicate threatened or missed , recent termination of , ectopic , gestosis or intrauterine . Yanelis- and postmenopausal females may have detectable hCG concentrations (< or = to 14 mIU/mL) due to pituitary production of hCG. Serum follicle-stimulating hormone measurement may aid in ruling-out in this population. Cutoffs of greater than 20 to 45 mIU/mL have been suggested and are method dependent. False-elevations (called phantom human chorionic gonadotropin: hCG) may occur with patients who have human antianimal or heterophilic antibodies. Some specimens may not dilute linearly due to abnormal forms of hCG. Elevated hCG concentrations not associated with are found in patients with other diseases such as tumors of the germ cells, ovaries, bladder, pancreas, stomach, lungs, and liver. This test is not intended to detect or monitor tumors or gestational trophoblastic disease. [facility] PT Coag (Bld) [Time]on 08-07 INR Coag (PPP) [Relative time] 0.9 {INR} 0.9 - 1.1 [facility] Comment on above: Recommended Anticoag ulant Therapy: SEE BELOW ----- INR of 2.0 - 3.0 : - Prophylaxis of Venous Thrombosis (high-risk surgery) - Treatment of Venous Thrombosis - Treatment of Pulmonary Embolism (Includes tissue heart valves, Acute Myocardial Infarction to prevent systemic embolism, Valvular Heart Disease, and Atrial Fibrillation) ----- INR of 2.5 - 3.5 : - Mechanical Prosthetic Valves (high risk) - If oral anticoagulant therapy is used to prevent Myocardial Infarction Interpretation and review of laboratory results Normal [facility] Vital signsOrdered By: Michaela Crouch on 08-07-2024 Heart rate 65 /min bpm [facility] [employer] Work Phone: XR Chest Single viewon 08-07 No radiographic evid ence of acute cardiopulmonary process. Report Dictated on Electronically Signed By: Steph Zaragoza MD Electronically Signed Date/Time: 08/07/2024 9:14 AM EDT [facility] Patient Name: MEL WALL : 1985 Exam Date/Time: 08/07/2024 08:51 Procedure: XR CHEST 1 VIEW Ordering Provider: PAN NICHOLAS Reason For Exam: pre procedure EXAMINATION: Portable chest INDICATION: pre procedure FINDINGS: There is no focal consolidation, sizable pleural effusion or pneumothorax. The cardiac silhouette and mediastinum are within normal limits. Small osteophytes of the spine are present at multiple levels with mild scoliosis. [facility] Steph Zaragoza MD - 08/07/2024 Patient Name: MEL WALL : 1985 Exam Date/Time: 08/07/2024 08:51 Procedure: XR CHEST 1 VIEW Ordering Provider: PAN NICHOLAS Reason For Exam: pre procedure EXAMINATION: Portable chest INDICATION: pre procedure FINDINGS: There is no focal consolidation, sizable pleural effusion or pneumothorax. The cardiac silhouette and mediastinum are within normal limits. Small osteophytes of the spine are present at multiple levels with mild scoliosis. IMPRESSION: No radiographic evidence of acute cardiopulmonary process. Report Dictated on Electronically Signed By: Steph Zaragoza MD Electronically Signed Date/Time: 08/07/2024 9:14 AM EDT [facility] Radiology Study observation (narrative) [facility] XR Chest Single viewOrdered By: Steph Zaragoza on 08-07-2024 [facility] [employer] Work Phone: CBC W Auto Differential pane l (Bld)on 07-08-2024 Basophils (Bld) [#/Vol] 0.0 10*3/uL 0.0 - 0.2 10*3/uL [facility] Basophils/100 WBC (Bld) 0.3 % 0.0 - 2.0 % [facility] [employer] Eosinophils (Bld) [#/Vol] 0.2 10*3/uL 0.0 - 0.5 10*3/uL [facility] Eosinophils/100 WBC (Bld) 2.6 % 0.0 - 6.0 % [facility] [employer] Erythrocyte distribution width (RBC) [Ratio] 12.6 % 11.5 - 15.0 % [facility] [employer] Hematocrit (Bld) [Volume fraction] 40.7 % 35.0 - 47.0 % [facility] Hemoglobin (Bld) [Mass/Vol] 13.7 g/dL 11.7 - 16.0 g/dL [facility] [employer] Immature granulocytes (Bld) [#/Vol] 0.0 10*3/uL NINF - 0.1 10*3/uL [facility] [employer] Immature granulocytes/100 WBC (Bld) 0.2 % 0.0 - 2.0 % [facility] Interpretation and review of laboratory results Abnormal [facility] [employer] Lymphocytes (Bld) [#/Vol] 2.1 10*3/uL 1.0 - 4.3 10*3/uL [facility] [employer] Lymphocytes/100 WBC (Bld) 23.2 % 15.0 - 45.0 % [facility] MCH (RBC) [Entitic mass] 31.1 pg 26.0 - 34.0 pg [facility] [employer] MCHC (RBC) [Mass/Vol] 33.7 % 30.5 - 36.0 % [facility] [employer] MCV (RBC) [Entitic vol] 92.3 fL 77.0 - 99.0 fL [facility] [employer] Monocytes (Bld) [#/Vol] 0.6 10*3/uL 0.0 - 0.9 10*3/uL [facility] [employer] Monocytes/100 WBC (Bld) 6.6 % 5.0 - 13.0 % [facility] [employer] Neutrophils (Bld) [#/Vol] 5.9 10*3/uL 1.8 - 7.5 10*3/uL [facility] Neutrophils/100 WBC (Bld) 67.1 % 38.0 - 82.0 % [facility] Nucleated RBC/100 WBC (Bld) [Ratio] 0.0 % [facility] Platelet mean volume (Bld) [Entitic vol] 8.6 fL Low 9.0 - 12.7 fL [facility] Comment on above: MPV is a calculated measurement using platelet volume ratio Platelets (Bld) [#/Vol] 326 10*3/uL 140 - 440 10*3/uL [facility] RBC (Bld) [#/Vol] 4.41 10*6/uL 3.80 - 5.20 10*6/uL [facility] WBC (Bld) [#/Vol] 8.8 10*3/uL 3.6 - 10.7 10*3/uL [facility] CT Abdomen and Pelvis W cont rast Oscar 07-08-2024 1. No definite acute abdominopelvic process identified. 2. Large ventral hernia containing fat and nonincarcerated nonobstructed bowel and colon. 3. Simple right renal cyst and 2 indeterminate lesions of the left kidney unchanged since prior exam. 4. Punctate nonobstructive right inferior pole nephrolithiasis. 5. Right adnexal hypodensities measuring up to 3.1 cm, potentially reflecting ovarian cysts. Ultrasound may be obtained for further evaluation. 6. Other chronic and postsurgical findings as discussed. Report Dictated on Electronically Signed By: Petr Blackburn MD Electronically Signed Date/Time: 07/08/2024 9:53 AM [facility] 1985 [id number] Exam Date/Time: 07/08/2024 09:40 Procedure: CT ABDOMEN PELVIS W CONTRAST Ordering Provider: GARCIA JOSHUA Reason For Exam: Abdominal pain, acute, nonlocalized CT ABDOMEN AND PELVIS WITH CONTRAST CLINICAL INDICATION: Abdominal pain, ventral hernia TECHNIQUE: Transaxial sequence was performed through the abdomen and pelvis during the intravenous infusion of 75 mL nonionic contrast media . Oral contrast: Not given Dose reduction was employed with automated exposure control. COMPARISON: 04/24/2024 FINDINGS: Lung bases: Bibasilar dependent atelectasis is observed. Otherwise, no focal consolidation or pleural effusion identified. Chest wall: Unremarkable. Liver: The liver is normal in size and contour. No focal hepatic lesions identified. Biliary system: The biliary system is not dilated. Postsurgical changes compatible with cholecystectomy are noted. Spleen: The spleen is normal in size and contour. Pancreas: No significant abnormality. Adrenal glands: No significant abnormality. Kidneys/ Ureter: Symmetric renal enhancement is noted. No evidence of hydroureteronephrosis. Punctate nonobstructive nephrolithiasis is observed. Right inferior pole nephrolithiasis observed nonobstructive in nature. Simple cyst of the right kidney noted measuring up to 1.5 cm. Two indeterminant lesions of the left kidney measuring 1.6 and 1.5 cm. Bladder: The urinary bladder is decompressed, limiting detailed evaluation. Pelvic organs: Right adnexal hypodensities noted measuring 3.1 and 2.2 cm, likely ovarian cysts. Tubal ligation clips observed. Bowel: Esophagus is unremarkable. The stomach is unremarkable. Postsurgical changes are noted in the in the small bowel. Otherwise, the small bowel is of normal caliber throughout without evidence of wall thickening or obstruction. Postsurgical changes compatible with appendectomy are observed. The large bowel is without evidence of dilatation or thickening. Mesentery/Intraperitoneum: No intraperitoneal free fluid or air is seen. Mesentery is normal in appearance. Lymph nodes: No lymphadenopathy Vasculature: The abdominal aorta is normal in caliber without evidence of aneurysmal dilatation. The venous vasculature appears grossly unremarkable. Abdominal wall: Large ventral hernia noted containing fat and nonincarcerated nonobstructed loops of bowel measuring up to 24.9 x 11.5 cm in axial dimensions, with a hernia orifice measuring up to 13.1 cm. Osseous structures: No suspicious osseous lesions identified. Mild degenerative changes of the lumbar spine are observed. [facility] Petr Blackburn MD - 07/08/2024 Patient Name: [facility]EL [facility]ALL [facility] 1985 [id number] Exam Date/Time: 07/08/2024 09:40 Procedure: CT ABDOMEN PELVIS W CONTRAST Ordering Provider: GARCIA JOSHUA Reason For Exam: Abdominal pain, acute, nonlocalized CT ABDOMEN AND PELVIS WITH CONTRAST CLINICAL INDICATION: Abdominal pain, ventral hernia TECHNIQUE: Transaxial sequence was performed through the abdomen and pelvis during the intravenous infusion of 75 mL nonionic contrast media . Oral contrast: Not given Dose reduction was employed with automated exposure control. COMPARISON: 04/24/2024 FINDINGS: Lung bases: Bibasilar dependent atelectasis is observed. Otherwise, no focal consolidation or pleural effusion identified. Chest wall: Unremarkable. Liver: The liver is normal in size and contour. No focal hepatic lesions identified. Biliary system: The biliary system is not dilated. Postsurgical changes compatible with cholecystectomy are noted. Spleen: The spleen is normal in size and contour. Pancreas: No significant abnormality. Adrenal glands: No significant abnormality. Kidneys/ Ureter: Symmetric renal enhancement is noted. No evidence of hydroureteronephrosis. Punctate nonobstructive nephrolithiasis is observed. Right inferior pole nephrolithiasis observed nonobstructive in nature. Simple cyst of the right kidney noted measuring up to 1.5 cm. Two indeterminant lesions of the left kidney measuring 1.6 and 1.5 cm. Bladder: The urinary bladder is decompressed, limiting detailed evaluation. Pelvic organs: Right adnexal hypodensities noted measuring 3.1 and 2.2 cm, likely ovarian cysts. Tubal ligation clips observed. Bowel: Esophagus is unremarkable. The stomach is unremarkable. Postsurgical changes are noted in the in the small bowel. Otherwise, the small bowel is of normal caliber throughout without evidence of wall thickening or obstruction. Postsurgical changes compatible with appendectomy are observed. The large bowel is without evidence of dilatation or thickening. Mesentery/Intraperitoneum: No intraperitoneal free fluid or air is seen. Mesentery is normal in appearance. Lymph nodes: No lymphadenopathy Vasculature: The abdominal aorta is normal in caliber without evidence of aneurysmal dilatation. The venous vasculature appears grossly unremarkable. Abdominal wall: Large ventral hernia noted containing fat and nonincarcerated nonobstructed loops of bowel measuring up to 24.9 x 11.5 cm in axial dimensions, with a hernia orifice measuring up to 13.1 cm. Osseous structures: No suspicious osseous lesions identified. Mild degenerative changes of the lumbar spine are observed. IMPRESSION: 1. No definite acute abdominopelvic process identified. 2. Large ventral hernia containing fat and nonincarcerated nonobstructed bowel and colon. 3. Simple right renal cyst and 2 indeterminate lesions of the left kidney unchanged since prior exam. 4. Punctate nonobstructive right inferior pole nephrolithiasis. 5. Right adnexal hypodensities measuring up to 3.1 cm, potentially reflecting ovarian cysts. Ultrasound may be obtained for further evaluation. 6. Other chronic and postsurgical findings as discussed. Report Dictated on Electronically Signed By: Petr Blackburn MD Electronically Signed Date/Time: 07/08/2024 9:53 AM EDT [facility] Radiology Study observation (narrative) [facility] [employer] CT Abdomen and Pelvis W cont rast IVOrdered By: Petr Blackburn on 07-08-2024 [facility] [employer] Work Phone: Comprehensive metabolic 1998 panelon 07-08-2024 Albumin [Mass/Vol] 4.5 g/dL 3.5 - 5.0 g/dL [facility] ALP [Catalytic activity/Vol] 43 U/L 38 - 126 U/L [facility] [employer] ALT [Catalytic activity/Vol] 12 U/L 0 - 34 U/L [facility] Anion gap [Moles/Vol] 9 mmol/L 3 - 13 mmol/L [facility] [employer] AST [Catalytic activity/Vol] 18 U/L 15 - 46 U/L [facility] [employer] Bilirubin [Mass/Vol] 0.3 mg/dL 0.2 - 1 .3 mg/dL [facility] Calcium [Mass/Vol] 9.0 mg/dL 8.4 - 10. 4 mg/dL [facility] [employer] Chloride [Moles/Vol] 106 mmol/L 98 - 10 7 mmol/L [facility] CO2 [Moles/Vol] 22 mmol/L 22 - 30 mmol/L [facility] Creatinine [Mass/Vol] 0.53 mg/dL 0.52 - 1.04 mg/dL [facility] GFR/1.73 sq M.predicted (S/P/Bld) [Vol rate/Area] - PINF [facility] Comment on above: Calculation based on the Chronic Kidney Disease Epidemiology Collaboration (CKD-EPI) equation refit without adjustment for race Glucose [Mass/Vol] 111 mg/dL High 70 - 100 mg/dL [facility] Interpretation and review of laboratory results Abnormal [facility] Potassium [Moles/Vol] 3.9 mmol/L 3.5 - 5.1 mmol/L [facility] Protein [Mass/Vol] 7.1 g/dL 6.3 - 8.2 g/dL [facility] Sodium [Moles/Vol] 138 mmol/L 135 - 145 mmol/L [facility] Urea nitrogen [Mass/Vol] 9 mg/dL 7 - 17 mg/dL [facility] Laboratory - Chemistry and C hemistry - challengeon 07-08-2024 Lipase [Catalytic activity/Vol] 127 U/L 23 - 300 U/L [facility] Lactate [Moles/Vol] 1.5 mmol/L 0.7 - 2. 0 mmol/L [facility] Lipase [Catalytic activity/V ol]on 07-08-2024 Interpretation and review of laboratory results Normal [facility] No Panel Informationon 07-08 [facility] Interpretation and review of laboratory results Normal [facility] Urinalysis complete panel (U )Ordered By: Kendra Laurent on 07-08-2024 Bacteria LM.HPF (Urine sed) [#/Area] Negative Negative /HPF [facility] Bilirubin Ql (U) Negative Negative mg/dL [facility] Clarity (U) Clear Clear [facility] Color (U) Red Abnormal Lt. Yellow [facility] Comment on above: [place]/light red Epithelial cells.squamous LM.HPF (Urine sed) [#/Area] 6-10 Abnormal [facility] Glucose Ql (U) Normal Normal (<70) mg/dL [facility] Hemoglobin Ql (U) >1.0 Abnormal Negative mg/dL [facility] Interpretation and review of laboratory results Abnormal [facility] Ketones (U) [Mass/Vol] Negative Negative mg/dL [facility] Leukocyte esterase Test strip Ql (U) 25 Abnormal Negative [place]/uL [facility] Nitrite Ql (U) Negative Negative [facility] pH (U) 6.0 [pH] 5.0 - 8.0 pH [facility] Protein (U) [Mass/Vol] Negative Negative mg/dL [facility] RBC LM.HPF (Urine sed) [#/Area] /[HPF] Abnormal [facility] Specific gravity (U) [Rel density] 1.005 1.005 - 1.030 [facility] Urobilinogen (U) [Mass/Vol] Normal Normal (0-1) mg/dL [facility] Volume, Urine 12 mL [facility] [employer] WBC LM.HPF (Urine sed) [#/Area] 3-5 [facility] [employer] [facility] [employer] CBC W Auto Differential pane l (Bld)on 05-30-2024 Basophils (Bld) [#/Vol] 0.03 10*3/uL Normal <0.11 [facility] Comment on above: Order Comment: Speci men Type: BLOOD SPECIMEN Ordering Facility: [facility] Address: [address] [place] [address] Performed By: #### 5 7021-8 #### [facility] CLIA [id number] [address] [place], [place] [address] [place] Basophils/100 WBC (Bld) 0.4 % Normal [facility] Comment on above: Order Comment: Speci men Type: BLOOD SPECIMEN Ordering Facility: [facility] Address: [address] [place] [address] Performed By: #### 5 7021-8 #### [facility] [employer] [facility] CLIA [id number] [address] [place], [place] [address] [place] Differential cell count method Nom (Bld) Auto Normal [facility] Comment on above: Order Comment: Speci men Type: BLOOD SPECIMEN Ordering Facility: [facility] Address: [address] [place] [address] Performed By: #### 5 7021-8 #### [facility] CLIA [id number] [address] [place], [place] [address] [place] Eosinophils (Bld) [#/Vol] 0.19 10*3/uL Normal <0.46 [facility] Comment on above: Order Comment: Speci men Type: BLOOD SPECIMEN Ordering Facility: [facility] Address: [address] [place] [address] Performed By: #### 5 7021-8 #### [facility] CLIA [id number] [address] [place], [place] [address] [place] Eosinophils/100 WBC (Bld) 2.6 % Normal [facility] Comment on above: Order Comment: Speci men Type: BLOOD SPECIMEN Ordering Facility: [facility] Address: [address] [place] [address] Performed By: #### 5 7021-8 #### [facility] CLIA [id number] [address] [address] [place] Erythrocyte distribution width (RBC) [Ratio] 12.0 % Normal 11.5-15.0 [facility] Comment on above: Order Comment: Speci men Type: BLOOD SPECIMEN Ordering Facility: [facility] Address: [address] [place] [address] Performed By: #### 5 7021-8 #### [facility] [employer] CLIA [id number] [address] [place], [place] [address] [place] Hematocrit (Bld) [Volume fraction] 38.3 % Normal 36.0-46.0 [facility] Comment on above: Order Comment: Speci men Type: BLOOD SPECIMEN Ordering Facility: [facility] Address: [address] [place] [address] Performed By: #### 5 7021-8 #### [email or web address] CLIA [id number] [address] [address] [place] Hemoglobin (Bld) [Mass/Vol] 12.7 g/dL Normal 11.5-15.5 [facility] Comment on above: Order Comment: Speci men Type: BLOOD SPECIMEN Ordering Facility: [facility] Address: [address] [place] [address] Performed By: #### 5 7021-8 #### [facility] CLIA [id number] [address] [address] [place] Immature granulocytes (Bld) [#/Vol] 10*3/uL Normal <0.10 [facility] Comment on above: Order Comment: Speci men Type: BLOOD SPECIMEN Ordering Facility: [facility] Address: [address] [place] [address] Performed By: #### 5 7021-8 #### [facility] CLIA [id number] [address] [address] [place] Immature granulocytes/100 WBC (Bld) 0.3 % Normal [facility] Comment on above: Order Comment: Speci men Type: BLOOD SPECIMEN Ordering Facility: [facility] Address: [address] [place] [address] Performed By: #### 5 7021-8 #### [facility] CLIA [id number] [address] [address] [place] Lymphocytes (Bld) [#/Vol] 1.77 10*3/uL Normal 1.00-4.00 [facility] Comment on above: Order Comment: Speci men Type: BLOOD SPECIMEN Ordering Facility: [facility] Address: [address] [place] [address] Performed By: #### 5 7021-8 #### [facility] CLIA [id number] [address] [place], [place] [address] [place] Lymphocytes/100 WBC (Bld) 24.4 % Normal [facility] Comment on above: Order Comment: Speci men Type: BLOOD SPECIMEN Ordering Facility: [facility] Address: [address] [place] [address] Performed By: #### 5 7021-8 #### [facility] CLIA [id number] [address] [place], [place] [address] [place] MCH (RBC) [Entitic mass] 31.1 pg Normal 26.0-34.0 [facility] Comment on above: Order Comment: Speci men Type: BLOOD SPECIMEN Ordering Facility: [facility] Address: [address] [place] [address] Performed By: #### 5 7021-8 #### [facility] CLIA [id number] [address] [place], [place] [address] [place] MCHC (RBC) [Mass/Vol] 33.2 g/dL Normal 30.5-36.0 [facility] Comment on above: Order Comment: Speci men Type: BLOOD SPECIMEN Ordering Facility: [facility] Address: [address] [place] [address] Performed By: #### 5 7021-8 #### [facility] CLIA [id number] [address] [place], [place] [address] [place] MCV (RBC) [Entitic vol] 93.9 fL Normal 80.0-100.0 [facility] Comment on above: Order Comment: Speci men Type: BLOOD SPECIMEN Ordering Facility: [facility] Address: [address] [place] [address] Performed By: #### 5 7021-8 #### [facility] CLIA [id number] [address] [place], [place] [address] [place] Monocytes (Bld) [#/Vol] 0.47 10*3/uL Normal <0.87 [facility] Comment on above: Order Comment: Speci men Type: BLOOD SPECIMEN Ordering Facility: [facility] Address: [address] [place] [address] Performed By: #### 5 7021-8 #### [facility] CLIA [id number] [address] [place], [place] [address] [place] Monocytes/100 WBC (Bld) 6.5 % Normal [facility] Comment on above: Order Comment: Speci men Type: BLOOD SPECIMEN Ordering Facility: [facility] Address: [address] [place] [address] Performed By: #### 5 7021-8 #### [facility] CLIA [id number] [address] [place], [place] [address] [place] Neutrophils (Bld) [#/Vol] 4.78 10*3/uL Normal 1.45-7.50 [facility] Comment on above: Order Comment: Speci men Type: BLOOD SPECIMEN Ordering Facility: [facility] Address: [address] [place] [address] Performed By: #### 5 7021-8 #### [facility] CLIA [id number] [address] [place] [address] [place] Neutrophils/100 WBC (Bld) 65.8 % Normal [facility] Comment on above: Order Comment: Speci men Type: BLOOD SPECIMEN Ordering Facility: [facility] Address: [address] [place] [address] Performed By: #### 5 7021-8 #### [facility] CLIA [id number] [address] [address] [place] Nucleated RBC (Bld) [#/Vol] Normal [facility] Comment on above: Order Comment: Speci men Type: BLOOD SPECIMEN Ordering Facility: [facility] Address: [address] [place] [address] Performed By: #### 5 7021-8 #### [facility] CLIA [id number] [address] [address] [place] Nucleated RBC/100 WBC (Bld) [Ratio] Normal [facility] Comment on above: Order Comment: Speci men Type: BLOOD SPECIMEN Ordering Facility: [facility] Address: [address] [place] [address] Performed By: #### 5 7021-8 #### [facility] CLIA [id number] [address] [address] [place] Platelet mean volume (Bld) [Entitic vol] 8.8 fL Low 9.0-12.7 [facility] Comment on above: Order Comment: Speci men Type: BLOOD SPECIMEN Ordering Facility: [facility] Address: [address] [place] [address] Performed By: #### 5 7021-8 #### [facility] CLIA [id number] [address] [place], [place] [address] [place] Platelets (Bld) [#/Vol] 255 10*3/uL Normal 150-400 [facility] Comment on above: Order Comment: Speci men Type: BLOOD SPECIMEN Ordering Facility: [facility] Address: [address] [place] [address] Performed By: #### 5 7021-8 #### [facility] CLIA [id number] [address] [place] [address] [place] RBC (Bld) [#/Vol] 4.08 10*6/uL Normal 3.90-5.20 [facility] Comment on above: Order Comment: Speci men Type: BLOOD SPECIMEN Ordering Facility: [facility] Address: [address] [place] [address] Performed By: #### 5 7021-8 #### [facility] CLIA [id number] [address] [place] [address] [place] WBC (Bld) [#/Vol] 7.26 10*3/uL Normal 3.70-11.00 [facility] Comment on above: Order Comment: Speci men Type: BLOOD SPECIMEN Ordering Facility: [facility] Address: [address] [place] [address] Performed By: #### 5 7021-8 #### [facility] CLIA [id number] [address] [place] [address] [facility] CT ABD/PEL W IVCONon 024 CT ABD/PEL W IVCON * * *Final Report* * * DATE OF EXAM: May 30 2024 7:15AM [facility] 0530 - CT ABD/PEL W IVCON / PROCEDURE REASON: Bowel obstruction suspected * * * * Physician Interpretation * * * * EXAMINATION: CT ABDOMEN AND PELVIS WITH IV CONTRAST CLINICAL HISTORY: History of abdominal wall hernias. Hernia pain. TECHNIQUE: CT of the abdomen and pelvis was performed using standard technique, scanning from just above the dome of the diaphragm to the symphysis pubis. MQ: CTAP_3 Contrast: IV: 100 ml of Omnipaque 350 CT Radiation dose: Integrated Dose-length product (DLP) for this visit = 993.28 mGy*cm. CT Dose Reduction Employed: Automated exposure control(AEC) and iterative recon COMPARISON: 05/07/2024 RESULT: Liver: 1.0 cm hypodensity dome left lobe of the liver on 2:15. Stable. Probable cyst. No other focal findings. Biliary: No bile duct dilation. The gallbladder is surgically absent. Spleen: No mass. No splenomegaly. Pancreas: No mass or duct dilation. Adrenals: Slight nodularity to the adrenal glands. Stable. Kidneys: Right: 2.0 cm probable cyst midpole. 3 mm nonobstructing stone lower pole. No hydronephrosis. Left: 1.4 cm exophytic indeterminate hypodensity lateral midpole. 1.7 cm indeterminate hypodensity lateral lower pole. No renal or ureteral stone. No hydronephrosis. GI tract: No dilated or thick-walled bowel. Appendix not visualized. Large amount of small bowel and portions of the colon herniated through the ventral abdominal wall defect. Ventral abdominal wall: Large defect in the midline ventral abdominal wall consistent with diastases of the rectus muscles with large amount of mesenteric fat and small and large bowel herniated through the defect. Lymph nodes: No abdominal or pelvic lymphadenopathy. Mesentery/Peritoneum: No ascites or mass. Retroperitoneum: No mass. Vasculature: Abdominal aorta is not aneurysmally dilated. Celiac artery, SMA, renal arteries, and CARIDAD are patent. Portal vein, hepatic veins, splenic vein, and SMV are patent. Pelvis: No mass, ascites or fluid collection. Bilateral tubal ligation clips. Bones/Soft Tissues: No significant additional findings. Lower thorax: No significant additional findings. Localizer images: No significant additional findings. IMPRESSION: 1. Large ventral abdominal wall defect consistent with diastases of the rectus muscles with large amount of mesenteric fat and nondilated small and large bowel herniated through the defect. 2. Several renal nodules particularly in the left kidney with indeterminate density. Recommend follow-up with ultrasound to ensure cystic nature. Cannot rule out solid lesions on this exam. [facility] Transcribe Date/Time: May 30 2024 7:20A Dictated by : DILIP APODACA MD This examination was interpreted and the report reviewed and electronically signed by: DILIP APODACA MD on May 30 2024 7:30AM EST [id number] Normal [facility] Comprehensive metabolic 2000 panelon 05-30-2024 Albumin [Mass/Vol] 4.3 g/dL Normal 3.9-4.9 [facility] Comment on above: Order Comment: Speci men Type: BLOOD SPECIMEN Ordering Facility: [facility] Address: [address] [place] [address] Performed By: #### 2 4323-8, 3040-3 #### [facility] CLIA [id number] [address] [place] [address] [place] ALP [Catalytic activity/Vol] 34 U/L Normal 34-123 [facility] Comment on above: Order Comment: Speci men Type: BLOOD SPECIMEN Ordering Facility: [facility] Address: [address] [place] [address] Performed By: #### 2 4323-8, 3040-3 #### [facility] CLIA [id number] [address] [place] [address] [place] ALT [Catalytic activity/Vol] 11 U/L Normal 7-38 [facility] Comment on above: Order Comment: Speci men Type: BLOOD SPECIMEN Ordering Facility: [facility] Address: [address] [place] [address] Performed By: #### 2 4323-8, 0-3 #### [facility] CLIA [id number] [address] [place], [place] [address] [place] [facility] Anion gap [Moles/Vol] 8 mmol/L Normal 8-15 [facility] Comment on above: Order Comment: Speci men Type: BLOOD SPECIMEN Ordering Facility: [facility] Address: [address] [place] [address] Performed By: #### 2 4323-8, 3040-3 #### [facility] CLIA [id number] [address] [place], [place] [address] [place] AST [Catalytic activity/Vol] 9 U/L Low 13-35 [facility] Comment on above: Order Comment: Speci men Type: BLOOD SPECIMEN Ordering Facility: [facility] Address: [address] [place] [address] Performed By: #### 2 4323-8, 3040-3 #### [facility] CLIA [id number] [address] [place] [address] [place] Bilirubin [Mass/Vol] 0.4 mg/dL Normal 0.2-1.3 [facility] Comment on above: Order Comment: Speci men Type: BLOOD SPECIMEN Ordering Facility: [facility] Address: [address] [place] [address] Result Comment: Use of this assay is not recommended for patients undergoing treatment with eltrombopag due to the potential for falsely elevated results. Performed By: #### 2 4323-8, 3040-3 #### [facility] CLIA [id number] [address] [place] [address] [place] Calcium [Mass/Vol] 9.2 mg/dL Normal 8.5-10.2 [facility] Comment on above: Order Comment: Speci men Type: BLOOD SPECIMEN Ordering Facility: [facility] Address: [address] [place] [address] Performed By: #### 2 4323-8, 0-3 #### [facility] CLIA [id number] [address] [place] [address] [place] Chloride [Moles/Vol] 107 mmol/L Normal 98-107 [facility] Comment on above: Order Comment: Speci men Type: BLOOD SPECIMEN Ordering Facility: [facility] Address: [address] [place] [address] Performed By: #### 2 4323-8, 0-3 #### [facility] CLIA [id number] [address] [place], [place] [address] [place] CO2 [Moles/Vol] 24 mmol/L Normal 22-30 [facility] Comment on above: Order Comment: Speci men Type: BLOOD SPECIMEN Ordering Facility: [facility] Address: [address] [place] [address] Performed By: #### 2 4323-8, 3040-3 #### [facility] CLIA [id number] [address] [place], [place] [address] [place] Creatinine [Mass/Vol] 0.62 mg/dL Normal 0.58-0.96 [facility] Comment on above: Order Comment: Speci men Type: BLOOD SPECIMEN Ordering Facility: [facility] Address: [address] [place] [address] Result Comment: Use of this assay is not recommended for patients undergoing treatment with phenindione, due to the potential for falsely depressed results. Performed By: #### 2 4323-8, 3040-3 #### [facility] CLIA [id number] [address] [place], [place] [address] [place] Creatinine and Glomerular filtration rate.predicted panel (S/P/Bld) 117 mL/min/1.73m??? Normal >=60 [facility] Comment on above: Order Comment: Danish webber Type: BLOOD SPECIMEN Ordering Facility: [facility] Address: [address] [place] [address] Result Comment: Adali mated Glomerular Filtration Rate (eGFR) is calculated using the 2020 CKD-EPI creatinine equation. This equation utilizes serum creatinine, sex, and age as parameters. The creatinine assay has traceable calibration to isotope dilution-mass spectrometry. Refer to KDIGO guidelines for clinical interpretation. In patients with unstable renal function, e.g. those with acute kidney injury, the eGFR may not accurately reflect actual GFR. Performed By: #### 2 4323-8, 0-3 #### [facility] CLIA [id number] [address] [place], [place] [address] [place] Glucose [Mass/Vol] 115 mg/dL High 74-99 [facility] Comment on above: Order Comment: Danish webber Type: BLOOD SPECIMEN Ordering Facility: [facility] Address: [address] [place] [address] Result Comment: The [place] Diabetes Association (ADA) provides guidance for cutoff values for fasting glucose and random glucose. The ADA defines fasting as no caloric intake for at least 8 hours. Fasting plasma glucose results between 100 to 125 mg/dL indicate increased risk for diabetes (prediabetes). Fasting plasma glucose results greater than or equal to 126 mg/dL meet the criteria for diagnosis of diabetes. In the absence of unequivocal hyperglycemia, results should be confirmed by repeat testing. In a patient with classic symptoms of hyperglycemia or hyperglycemic crisis, random plasma glucose results greater than or equal to 200 mg/dL meet the criteria for diagnosis of diabetes. Reference: Standards of Medical Care in Diabetes 2016, [place] [employer] Association. Diabetes Care. 2016.39(Suppl 1). Performed By: #### 2 4323-8, 0-3 #### [facility] CLIA [id number] [address] [place] [address] [place] Potassium [Moles/Vol] 4.0 mmol/L Normal 3.7-5.1 [facility] Comment on above: Order Comment: Speci men Type: BLOOD SPECIMEN Ordering Facility: [facility] Address: [address] [place] [address] Performed By: #### 2 4323-8, 3039-3 #### [facility] CLIA [id number] [address] [place] [address] [place] Protein [Mass/Vol] 6.6 g/dL Normal 6.3-8.0 [facility] Comment on above: Order Comment: Speci men Type: BLOOD SPECIMEN Ordering Facility: [facility] Address: [address] [place], [place] [id number] Performed By: #### 2 4323-8, 3039-3 #### [facility] CLIA [id number] [address] [place] [address] [place] Sodium [Moles/Vol] 139 mmol/L Normal 136-144 [facility] Comment on above: Order Comment: Speci men Type: BLOOD SPECIMEN Ordering Facility: [facility] Address: [address] [id number] Performed By: #### 2 4323-8, 0-3 #### [facility] CLIA [id number] [address] [place] [address] [place] Urea nitrogen [Mass/Vol] 10 mg/dL Normal 7-21 [facility] Comment on above: Order Comment: Speci men Type: BLOOD SPECIMEN Ordering Facility: [facility] Address: [address] [place] [address] Performed By: #### 2 4323-8, 0-3 #### [facility] CLIA [id number] [address] [place] [address] [facility] ED PROV NOTEon 05-30-2024 ED PROV NOTE HNO ID: [id number] Author: MARSHA MCCANN DO Service: Emergency Medicine Author Type: Physician Type: ED Provider Notes Filed: 05/30/2024 07:47 Note Text: Patient was signed out to me by the outgoing emergency medicine physician. We discussed patient's presentation, clinical course, and treatment plan. CT scan of the abdomen pelvis was pending at time of signout. CT scan shows a large ventral hernia. Patient has history of prior appendectomy and cholecystectomy. It specifically says there is no bowel inflammation or dilation. It does not report any evidence of bowel obstruction. This hernia is chronic in nature. This is not incarcerated on exam. Her CT scan is consistent with multiple prior CT scans at outside facilities. There are cystic changes on the kidneys which appear on prior radiology reports. I did inform her of these because she will need to follow-up. On reevaluation patient is tolerating oral liquids without difficulty. Her laboratory studies are overall unremarkable. She has no leukocytosis. Lactate is normal. Do not believe any further testing is warranted. She has a surgeon which she can follow-up with. Patient asked for work note for today at time of discharge. I provided her with this. Patient discharged from the Emergency Department. I do not feel that the patient's evaluation reveals any acute reason for admission at this time. I instructed them to either follow up with their primary care physician or promptly return to the Emergency Department for reevaluation should symptoms worsen or new symptoms develop. I explained what symptoms would indicate the need to return to the Emergency Department. Shared decision making was used. The patient voiced understanding of the treatment plan and is agreeable with it. MARSHA MCCANN 05/30/24 0747 Normal [facility] ED PROV NOTE HNO ID: [id number] Author: JUAN DAVID BOSS MD Service: Emergency Medicine Author Type: Physician Type: ED Provider Notes Filed: 05/30/2024 07:00 Note Text: ED Provider Note Patient Name: Mel Wall : 1985 SERVICE DATE: 05/30/24 History Patient presents with: Abdominal Pain: Pt with multiple hernia repairs. Awoke tonight due to pain from hernia. +emesis Last BM 2 days ago, loose Patient presents for abdominal pain localized over ventral hernia. Has had multiple small bowel obstructions. 2 episodes of nausea and vomiting today. Last Bm was Tuesday. No dysuria or flank pain. No vaginal bleeding or discharge. LMP ended 2 days ago. No fevers. No CP or SOB. PAST MEDICAL HISTORY 07/24/2013: Abdominal wall mass of left lower quadrant Comment: Scar tissue with abscess. Resolved No date: Anxiety No date: Bipolar 1 disorder ([facility]) 08/06/2019: Chronic pain syndrome Comment: Seeing [facility]: Dr. Moore No date: Depression 10/18/2013: Headache(784.0) 01/24/2018: Obesity, Class III, BMI 40-49.9 (morbid obesity) ([facility]) 11/05/2014: Panic disorder No date: Routine gynecological examination Comment: Dr. Dukes 11/05/2014: Social phobia 12/21/2019: Ventral hernia PAST SURGICAL HISTORY 2007: APPENDECTOMY HX ,,: DELIVERY ONLY 2008: COLONOSCOPY 08/02/13: EXC TUMOR SOFT TISSUE ABDOMINAL WALL SUBQ 3+CM Comment: LLQ prior incision, stitch granuloma/chronic abscess 08/09/13: INCISION AND DRAINAGE COMPLEX PO WOUND INFECTION 03-08-07: LAPS SURG CHOLECYSTECTOMY W/CHOLANGIOGRAPHY No date: PAST SURGICAL HISTORY OF Comment: hernia repair x6 06/10/2019: PAST SURGICAL HISTORY OF Comment: Open lysis of adhesions 10/23/2008: JANEL-EN-Y W/GASTROENTEROS Comment: Division of the duodenum with Janel-en-Y duodenojejunostomy - op note describes a duodenal switch procedure No date: TUBAL LIGATION, FAMILY HISTORY Problem Relation Age of Onset Panic Disorder Mother Anxiety disorder Mother Bipolar disorder Mother Depression Mother Cervical Cancer Mother Cancer Mother ovarian cancer Coronary Artery Disease Father 53 Diabetes Father Hypertension Father Cancer Sister ovarian cancer Coronary Artery Disease Maternal Uncle 50's Cancer Maternal Grandmother ovarian cancer Osteoporosis Maternal Grandmother Cancer Paternal Grandmother ovarian cancer Diabetes Paternal Grandmother Social History Tobacco Use Smoking status: Former Current packs/day: 0.00 Average packs/day: 0.5 packs/day for 1 year (0.5 ttl pk-yrs) Types: Cigarettes Start date: 11/10/2010 Quit date: 11/10/2011 Years since quittin.5 Smokeless tobacco: Never Vaping Use Vaping status: Never Used Substance and Sexual Activity Alcohol use: Not Currently Comment: rare glass of wine Drug use: Yes Types: Marijuana Comment: for anxiety and for sleep Sexual activity: Yes control/protection: Tubal Ligation ALLERGIES Allergen Reactions Toradol [Ketorolac] Hives, Shortness of Breath Zofran [Ondansetron* Hives, Shortness of Breath Seasonal Allergies Itching, Other: See Comments Stuffy nose Review of Systems Constitutional: Negative for chills and fever. HENT: Negative for congestion and sore throat. Eyes: Negative for visual disturbance. Respiratory: Negative for cough and shortness of breath. Cardiovascular: Negative for chest pain, palpitations and leg swelling. Gastrointestinal: Positive for abdominal pain, nausea and vomiting. Negative for constipation and diarrhea. Genitourinary: Negative for dysuria and frequency. Musculoskeletal: Negative for back pain and neck pain. Skin: Negative for rash and wound. Neurological: Negative for dizziness, weakness and light-headedness. Physical Exam Vitals [05/30/24 0507] BP Pulse Temp Temp src Resp SpO2 Weight Height 123/93 (!) 98 36.6 ?C (97.9 ?F) Temporal 18 99 % 104.3 kg (230 lb) -- Physical Exam Vitals and nursing note reviewed. Constitutional: General: She is not in acute distress. Appearance: She is well-developed. HENT: Head: Normocephalic and atraumatic. Right Ear: External ear normal. Left Ear: External ear normal. Nose: Nose normal. Eyes: Extraocular Movements: Extraocular movements intact. Cardiovascular: Rate and Rhythm: Normal rate and regular rhythm. Heart sounds: Normal heart sounds. No murmur heard. Pulmonary: Effort: Pulmonary effort is normal. No respiratory distress. Breath sounds: Normal breath sounds. No wheezing. Abdominal: General: Bowel sounds are normal. There is no distension. Palpations: Abdomen is soft. Tenderness: There is generalized abdominal tenderness. There is no right CVA tenderness or left CVA tenderness. Comments: Large ventral hernia present. Musculoskeletal: General: No deformity. Normal range of motion. Cervical back: Normal range of motion and neck supple. Skin: General: Skin is wa (more content not included)... Normal [facility] Lipase SerPl-cCncon 05-30-20 24 Lipase [Catalytic activity/Vol] 33 U/L Normal 16-61 [facility] Comment on above: Order Comment: Speci men Type: BLOOD SPECIMEN Ordering Facility: [facility] Address: [address] [place] [address] Performed By: #### 2 4323-8, 3040-3 #### [facility] CLIA [id number] [address] [place], [place] [address] [facility] SEPSIS LACTATEon 05-30-2024 Lactate [Moles/Vol] 1.7 mmol/L Normal <=2.0 [facility] Comment on above: Order Comment: Speci men Type: BLOOD SPECIMEN Ordering Facility: [facility] Address: [address] [place] [address] Performed By: #### S LACT #### [facility] CLIA [id number] [address] [place], [place] [address] [place] Basic metabolic 1998 panelon 04-26-2024 Anion gap [Moles/Vol] 9 mmol/L 3 - 13 mmol/L [facility] Calcium [Mass/Vol] 9.1 mg/dL 8.4 - 10. 4 mg/dL [facility] Chloride [Moles/Vol] 104 mmol/L 98 - 10 7 mmol/L [facility] CO2 [Moles/Vol] 21 mmol/L Low 22 - 30 mmol/L [facility] Creatinine [Mass/Vol] 0.51 mg/dL Low 0.52 - 1.04 mg/dL [facility] GFR/1.73 sq M.predicted MDRD (S/P/Bld) [Vol rate/Area] - PINF [facility] Comment on above: Calculation based on the Chronic Kidney Disease Epidemiology Collaboration (CKD-EPI) equation refit without adjustment for race Glucose [Mass/Vol] 93 mg/dL 70 - 100 mg/dL [facility] Interpretation and review of laboratory results Abnormal [facility] Potassium [Moles/Vol] 3.8 mmol/L 3.5 - 5.1 mmol/L [facility] Sodium [Moles/Vol] 134 mmol/L Low 135 - 145 mmol/L [facility] Urea nitrogen [Mass/Vol] 3 mg/dL Low 7 - 17 mg/dL [facility] CBC W Auto Differential pane l (Bld)on 04-26-2024 Basophils (Bld) [#/Vol] 0.0 10*3/uL 0.0 - 0.2 10*3/uL [facility] Basophils/100 WBC (Bld) 0.3 % 0.0 - 2.0 % [facility] Eosinophils (Bld) [#/Vol] 0.3 10*3/uL 0.0 - 0.5 10*3/uL [facility] Eosinophils/100 WBC (Bld) 3.5 % 0.0 - 6.0 % [facility] Erythrocyte distribution width (RBC) [Ratio] 12.4 % 11.5 - 15.0 % [facility] Hematocrit (Bld) [Volume fraction] 42.4 % 35.0 - 47.0 % [facility] Hemoglobin (Bld) [Mass/Vol] 14.0 g/dL 11.7 - 16.0 g/dL [facility] Immature granulocytes (Bld) [#/Vol] 0.1 10*3/uL High NINF - 0.1 10*3/uL [facility] Immature granulocytes/100 WBC (Bld) 0.6 % 0.0 - 2.0 % [facility] Interpretation and review of laboratory results Abnormal [facility] Lymphocytes (Bld) [#/Vol] 2.2 10*3/uL 1.0 - 4.3 10*3/uL [facility] Lymphocytes/100 WBC (Bld) 25.7 % 15.0 - 45.0 % [facility] MCH (RBC) [Entitic mass] 30.4 pg 26.0 - 34.0 pg [facility] MCHC (RBC) [Mass/Vol] 33.0 % 30.5 - 36.0 % [facility] MCV (RBC) [Entitic vol] 92.0 fL 77.0 - 99.0 fL [facility] Monocytes (Bld) [#/Vol] 0.4 10*3/uL 0.0 - 0.9 10*3/uL [facility] Monocytes/100 WBC (Bld) 4.9 % Low 5.0 - 13.0 % [facility] Neutrophils (Bld) [#/Vol] 5.6 10*3/uL 1.8 - 7.5 10*3/uL [facility] Neutrophils/100 WBC (Bld) 65.0 % 38.0 - 82.0 % [facility] Nucleated RBC/100 WBC (Bld) [Ratio] 0.0 % [facility] Platelet mean volume (Bld) [Entitic vol] 9.1 fL 9.0 - 12.7 fL [facility] Platelets (Bld) [#/Vol] 290 10*3/uL 140 - 440 10*3/uL [facility] RBC (Bld) [#/Vol] 4.61 10*6/uL 3.80 - 5.20 10*6/uL [facility] WBC (Bld) [#/Vol] 8.6 10*3/uL 3.6 - 10.7 10*3/uL [facility] Basic metabolic 1998 panelon 04-25-2024 Anion gap [Moles/Vol] 10 mmol/L 3 - 13 mmol/L [facility] Calcium [Mass/Vol] 8.9 mg/dL 8.4 - 10. 4 mg/dL [facility] Chloride [Moles/Vol] 105 mmol/L 98 - 10 7 mmol/L [facility] CO2 [Moles/Vol] 21 mmol/L Low 22 - 30 mmol/L [facility] Creatinine [Mass/Vol] 0.44 mg/dL Low 0.52 - 1.04 mg/dL [facility] GFR/1.73 sq M.predicted MDRD (S/P/Bld) [Vol rate/Area] - PINF [facility] Comment on above: Calculation based on the Chronic Kidney Disease Epidemiology Collaboration (CKD-EPI) equation refit without adjustment for race Glucose [Mass/Vol] 88 mg/dL 70 - 100 mg/dL [facility] Interpretation and review of laboratory results Abnormal [facility] Potassium [Moles/Vol] 4.0 mmol/L 3.5 - 5.1 mmol/L [facility] Sodium [Moles/Vol] 136 mmol/L 135 - 145 mmol/L [facility] Urea nitrogen [Mass/Vol] 6 mg/dL Low 7 - 17 mg/dL [facility] CBC W Auto Differential pane l (Bld)on 04-25-2024 Basophils (Bld) [#/Vol] 0.0 10*3/uL 0.0 - 0.2 10*3/uL [facility] Basophils/100 WBC (Bld) 0.5 % 0.0 - 2.0 % [facility] Eosinophils (Bld) [#/Vol] 0.2 10*3/uL 0.0 - 0.5 10*3/uL [facility] Eosinophils/100 WBC (Bld) 3.1 % 0.0 - 6.0 % [facility] Erythrocyte distribution width (RBC) [Ratio] 12.6 % 11.5 - 15.0 % [facility] Hematocrit (Bld) [Volume fraction] 38.9 % 35.0 - 47.0 % [facility] Hemoglobin (Bld) [Mass/Vol] 12.8 g/dL 11.7 - 16.0 g/dL [facility] Immature granulocytes (Bld) [#/Vol] 0.0 10*3/uL NINF - 0.1 10*3/uL [facility] Immature granulocytes/100 WBC (Bld) 0.5 % 0.0 - 2.0 % [facility] Interpretation and review of laboratory results Abnormal [facility] Lymphocytes (Bld) [#/Vol] 2.0 10*3/uL 1.0 - 4.3 10*3/uL [facility] Lymphocytes/100 WBC (Bld) 31.1 % 15.0 - 45.0 % [facility] MCH (RBC) [Entitic mass] 30.9 pg 26.0 - 34.0 pg [facility] MCHC (RBC) [Mass/Vol] 32.9 % 30.5 - 36.0 % [facility] MCV (RBC) [Entitic vol] 94.0 fL 77.0 - 99.0 fL [facility] Monocytes (Bld) [#/Vol] 0.4 10*3/uL 0.0 - 0.9 10*3/uL [facility] Monocytes/100 WBC (Bld) 5.4 % 5.0 - 13.0 % [facility] Neutrophils (Bld) [#/Vol] 3.8 10*3/uL 1.8 - 7.5 10*3/uL [facility] Neutrophils/100 WBC (Bld) 59.4 % 38.0 - 82.0 % [facility] Nucleated RBC/100 WBC (Bld) [Ratio] 0.0 % [facility] Platelet mean volume (Bld) [Entitic vol] 8.9 fL Low 9.0 - 12.7 fL [facility] [employer] Platelets (Bld) [#/Vol] 257 10*3/uL 140 - 440 10*3/uL [facility] [employer] RBC (Bld) [#/Vol] 4.14 10*6/uL 3.80 - 5.20 10*6/uL [facility] WBC (Bld) [#/Vol] 6.4 10*3/uL 3.6 - 10.7 10*3/uL [facility] RF Small bowel Views W contr ast Sarath 04-25-2024 Mild dilatation of proximal small bowel, remainder of the small bowel appears decompressed. No evidence of high-grade small bowel obstruction is seen. Contrast reaches the colon within 2.5 hours. Report Dictated on Electronically Signed By: Chad Burgos MD Electronically Signed Date/Time: 04/25/2024 3:13 PM EDT [facility] [employer] Patient Name: MEL WALL : 1985 Exam Date/Time: 04/25/2024 12:41 Procedure: FL SMALL BOWEL SERIES Ordering Provider: WAGNER TYLER Reason For Exam: SBO vs pSBO? SMALL BOWEL SERIES: CLINICAL INDICATION: Abdominal pain. Small bowel obstruction. COMPARISON: 12/22/2023 TECHNIQUE: Gastrografin was administered orally per ordering physician request. No Fluoroscopy was utilized. 10 images were taken FINDINGS: Preliminary demonstrates tubal ligation clips within the pelvis. There are anastomotic sutures within the left hemiabdomen. There is mild dilatation of proximal small bowel. The remainder the small bowel is decompressed. Contrast reaches the colon within 2.5 hours. No obvious abnormality of the mucosal pattern is seen. Transit time is within normal range. [facility] Chad Burgos MD - 04/25/2024 Patient Name: MEL WALL : 1985 Exam Date/Time: 04/25/2024 12:41 Procedure: FL SMALL BOWEL SERIES Ordering Provider: WAGNER TYLER Reason For Exam: SBO vs pSBO? SMALL BOWEL SERIES: CLINICAL INDICATION: Abdominal pain. Small bowel obstruction. COMPARISON: 12/22/2023 TECHNIQUE: Gastrografin was administered orally per ordering physician request. No Fluoroscopy was utilized. 10 images were taken FINDINGS: Preliminary demonstrates tubal ligation clips within the pelvis. There are anastomotic sutures within the left hemiabdomen. There is mild dilatation of proximal small bowel. The remainder the small bowel is decompressed. Contrast reaches the colon within 2.5 hours. No obvious abnormality of the mucosal pattern is seen. Transit time is within normal range. IMPRESSION: Mild dilatation of proximal small bowel, remainder of the small bowel appears decompressed. No evidence of high-grade small bowel obstruction is seen. Contrast reaches the colon within 2.5 hours. Report Dictated on Electronically Signed By: Chad Burgos MD Electronically Signed Date/Time: 04/25/2024 3:13 PM EDT [facility] Radiology Study observation (narrative) [facility] [employer] RF Small bowel Views W contr ast POOrdered By: Chad Burgos on 04-25-2024 [facility] CBC W Auto Differential pane l (Bld)on 04-24-2024 Basophils (Bld) [#/Vol] 0.0 10*3/uL 0.0 - 0.2 10*3/uL [facility] [employer] Basophils/100 WBC (Bld) 0.3 % 0.0 - 2.0 % [facility] Eosinophils (Bld) [#/Vol] 0.2 10*3/uL 0.0 - 0.5 10*3/uL [facility] [employer] Eosinophils/100 WBC (Bld) 2.1 % 0.0 - 6.0 % [facility] Erythrocyte distribution width (RBC) [Ratio] 12.7 % 11.5 - 15.0 % [facility] Hematocrit (Bld) [Volume fraction] 40.2 % 35.0 - 47.0 % [facility] Hemoglobin (Bld) [Mass/Vol] 13.5 g/dL 11.7 - 16.0 g/dL [facility] Immature granulocytes (Bld) [#/Vol] 0.0 10*3/uL NINF - 0.1 10*3/uL [facility] [employer] Immature granulocytes/100 WBC (Bld) 0.4 % 0.0 - 2.0 % [facility] Interpretation and review of laboratory results Normal [facility] Lymphocytes (Bld) [#/Vol] 2.7 10*3/uL 1.0 - 4.3 10*3/uL [facility] Lymphocytes/100 WBC (Bld) 26.7 % 15.0 - 45.0 % [facility] MCH (RBC) [Entitic mass] 31.3 pg 26.0 - 34.0 pg [facility] MCHC (RBC) [Mass/Vol] 33.6 % 30.5 - 36.0 % [facility] MCV (RBC) [Entitic vol] 93.3 fL 77.0 - 99.0 fL [facility] Monocytes (Bld) [#/Vol] 0.6 10*3/uL 0.0 - 0.9 10*3/uL [facility] Monocytes/100 WBC (Bld) 5.9 % 5.0 - 13.0 % [facility] Neutrophils (Bld) [#/Vol] 6.6 10*3/uL 1.8 - 7.5 10*3/uL [facility] Neutrophils/100 WBC (Bld) 64.6 % 38.0 - 82.0 % [facility] Nucleated RBC/100 WBC (Bld) [Ratio] 0.0 % [facility] Platelet mean volume (Bld) [Entitic vol] 9.0 fL 9.0 - 12.7 fL [facility] Comment on above: MPV is a calculated measurement using platelet volume ratio Platelets (Bld) [#/Vol] 304 10*3/uL 140 - 440 10*3/uL [facility] RBC (Bld) [#/Vol] 4.31 10*6/uL 3.80 - 5.20 10*6/uL [facility] WBC (Bld) [#/Vol] 10.2 10*3/uL 3.6 - 10.7 10*3/uL [facility] CT Abdomen and Pelvis W cont rast Oscar 04-24-2024 1. Very large ventra l hernia containing nondilated bowel loops including an anastomosis involving small bowel 2. Indeterminate small left renal lesions as previously described. These are not significantly changed since 09/13/2023 Report Dictated on Electronically Signed By: Jose Carlson MD Electronically Signed Date/Time: 04/24/2024 2:58 AM EDT [facility] 1985 [id number] Exam Date/Time: 04/24/2024 02:40 Procedure: CT ABDOMEN PELVIS W CONTRAST Ordering Provider: TERRELL DUSTIN Reason For Exam: pain over large abdominal hernia CT ABDOMEN AND PELVIS WITH CONTRAST CLINICAL INDICATION: Abdominal pain. Ventral hernia TECHNIQUE: Transaxial sequence through the abdomen and pelvis with 3 mm reconstruction with dynamic intravenous infusion of 75 mL of 370 mg% contrast media. No oral contrast was administered. Coronal and sagittal reconstructions included. Dose reduction was employed with automated exposure control. COMPARISON: Nine days ago FINDINGS: Exam quality: Examination is limited for evaluation of the gastrointestinal tract due to lack of oral contrast Chest base: Normal. Liver: Normal size and contour. No focal lesion. Biliary tree: Normal caliber. Spleen: Normal. Adrenals: Normal. Pancreas: Normal. Kidneys: Symmetric contrast enhancement without hydronephrosis. Cyst on the right measures 1.5 cm. There are two indeterminate lesions on the left measuring 1.6 cm. Free fluid: None. Retroperitoneal/mesenteric lymphadenopathy: None. Aorta: Normal caliber. Bowel: Very large ventral hernia is noted near the midline. The defect in the abdominal wall measures up to 11 cm and the hernia measures as large as 26 cm transverse and 21 cm cephalocaudad. The hernia contains small and large bowel without dilatation. There is an anastomosis within the herniated bowel loops. Abdominal wall: Normal. Pelvic organs/viscera: No mass identified. Pelvic lymphadenopathy: None. Osseous structures: Normal. [facility] Jose Carlson MD - 04/24/2024 Patient Name: [facility]EL WALL : 1985 [id number] Exam Date/Time: 04/24/2024 02:40 Procedure: CT ABDOMEN PELVIS W CONTRAST Ordering Provider: TERRELL DUSTIN Reason For Exam: pain over large abdominal hernia CT ABDOMEN AND PELVIS WITH CONTRAST CLINICAL INDICATION: Abdominal pain. Ventral hernia TECHNIQUE: Transaxial sequence through the abdomen and pelvis with 3 mm reconstruction with dynamic intravenous infusion of 75 mL of 370 mg% contrast media. No oral contrast was administered. Coronal and sagittal reconstructions included. Dose reduction was employed with automated exposure control. COMPARISON: Nine days ago FINDINGS: Exam quality: Examination is limited for evaluation of the gastrointestinal tract due to lack of oral contrast Chest base: Normal. Liver: Normal size and contour. No focal lesion. Biliary tree: Normal caliber. Spleen: Normal. Adrenals: Normal. Pancreas: Normal. Kidneys: Symmetric contrast enhancement without hydronephrosis. Cyst on the right measures 1.5 cm. There are two indeterminate lesions on the left measuring 1.6 cm. Free fluid: None. Retroperitoneal/mesenteric lymphadenopathy: None. Aorta: Normal caliber. Bowel: Very large ventral hernia is noted near the midline. The defect in the abdominal wall measures up to 11 cm and the hernia measures as large as 26 cm transverse and 21 cm cephalocaudad. The hernia contains small and large bowel without dilatation. There is an anastomosis within the herniated bowel loops. Abdominal wall: Normal. Pelvic organs/viscera: No mass identified. Pelvic lymphadenopathy: None. Osseous structures: Normal. IMPRESSION: 1. Very large ventral hernia containing nondilated bowel loops including an anastomosis involving small bowel 2. Indeterminate small left renal lesions as previously described. These are not significantly changed since 09/13/2023 Report Dictated on Electronically Signed By: Jose Carlson MD Electronically Signed Date/Time: 04/24/2024 2:58 AM EDT [facility] Radiology Study observation (narrative) [facility] [employer] CT Abdomen and Pelvis W cont rast IVOrdered By: Jose Carlson on 04-24-2024 [facility] [employer] Work Phone: Comprehensive metabolic 1998 panelon 04-24-2024 Albumin [Mass/Vol] 4.4 g/dL 3.5 - 5.0 g/dL [facility] [employer] ALP [Catalytic activity/Vol] 41 U/L 38 - 126 U/L [facility] [employer] ALT [Catalytic activity/Vol] 20 U/L 0 - 34 U/L [facility] [employer] Anion gap [Moles/Vol] 9 mmol/L 3 - 13 mmol/L [facility] AST [Catalytic activity/Vol] 19 U/L 15 - 46 U/L [facility] [employer] Bilirubin [Mass/Vol] 0.3 mg/dL 0.2 - 1 .3 mg/dL [facility] Calcium [Mass/Vol] 9.6 mg/dL 8.4 - 10. 4 mg/dL [facility] Chloride [Moles/Vol] 108 mmol/L High 98 - 10 7 mmol/L [facility] CO2 [Moles/Vol] 21 mmol/L Low 22 - 30 mmol/L [facility] Creatinine [Mass/Vol] 0.64 mg/dL 0.52 - 1.04 mg/dL [facility] GFR/1.73 sq M.predicted MDRD (S/P/Bld) [Vol rate/Area] - PINF [facility] Comment on above: Calculation based on the Chronic Kidney Disease Epidemiology Collaboration (CKD-EPI) equation refit without adjustment for race Glucose [Mass/Vol] 119 mg/dL High 70 - 100 mg/dL [facility] Interpretation and review of laboratory results Abnormal [facility] Potassium [Moles/Vol] 3.4 mmol/L Low 3.5 - 5.1 mmol/L [facility] Protein [Mass/Vol] 7.2 g/dL 6.3 - 8.2 g/dL [facility] Sodium [Moles/Vol] 137 mmol/L 135 - 145 mmol/L [facility] Urea nitrogen [Mass/Vol] 9 mg/dL 7 - 17 mg/dL [facility] Laboratory - Chemistry and C hemistry - challengeon 04-24-2024 Lipase [Catalytic activity/Vol] 81 U/L 23 - 300 U/L [facility] Laboratory - Chemistry and C hemistry - challengeOrdered By: Pam Shanks on 04-24-2024 Beta HCG ( test) Ql Negative Negative [facility] Comment on above: Please note: Very di lute urine specimens, as indicated by a low specific gravity, may not contain loan representative levels of hCG. If is still suspected, a first morning urine specimen should be collected 48 hours later and tested. Beta HCG ( test) Ql (U) is the most common reason for HCG in urine, although choriocarcinoma, hydatidiform mole, and certain nontrophoblastic malignancies also result in detectable urinary HCG levels. Sensitivity = 20mIU/mL. [facility] Lipase [Catalytic activity/V ol]on 04-24-2024 Interpretation and review of laboratory results Normal [facility] No Panel Informationon 04-24 [facility] No Panel InformationOrdered By: Pam Shanks on 04-24-2024 [facility] CBC W Auto Differential pane l (Bld)on 04-15-2024 Basophils (Bld) [#/Vol] 0.0 10*3/uL 0.0 - 0.2 10*3/uL [facility] Basophils/100 WBC (Bld) 0.4 % 0.0 - 2.0 % [facility] Eosinophils (Bld) [#/Vol] 0.2 10*3/uL 0.0 - 0.5 10*3/uL [facility] Eosinophils/100 WBC (Bld) 2.7 % 0.0 - 6.0 % [facility] Erythrocyte distribution width (RBC) [Ratio] 12.9 % 11.5 - 15.0 % [facility] Hematocrit (Bld) [Volume fraction] 41.0 % 35.0 - 47.0 % [facility] Hemoglobin (Bld) [Mass/Vol] 13.8 g/dL 11.7 - 16.0 g/dL [facility] Immature granulocytes (Bld) [#/Vol] 0.0 10*3/uL NINF - 0.1 10*3/uL [facility] Immature granulocytes/100 WBC (Bld) 0.4 % 0.0 - 2.0 % [facility] Interpretation and review of laboratory results Abnormal [facility] Lymphocytes (Bld) [#/Vol] 1.3 10*3/uL 1.0 - 4.3 10*3/uL [facility] Lymphocytes/100 WBC (Bld) 17.7 % 15.0 - 45.0 % [facility] MCH (RBC) [Entitic mass] 31.4 pg 26.0 - 34.0 pg [facility] MCHC (RBC) [Mass/Vol] 33.7 % 30.5 - 36.0 % [facility] MCV (RBC) [Entitic vol] 93.2 fL 77.0 - 99.0 fL [facility] Monocytes (Bld) [#/Vol] 0.4 10*3/uL 0.0 - 0.9 10*3/uL [facility] Monocytes/100 WBC (Bld) 5.9 % 5.0 - 13.0 % [facility] Neutrophils (Bld) [#/Vol] 5.2 10*3/uL 1.8 - 7.5 10*3/uL [facility] Neutrophils/100 WBC (Bld) 72.9 % 38.0 - 82.0 % [facility] [employer] Nucleated RBC/100 WBC (Bld) [Ratio] 0.0 % [facility] [employer] Platelet mean volume (Bld) [Entitic vol] 8.8 fL Low 9.0 - 12.7 fL [facility] [employer] Comment on above: MPV is a calculated measurement using platelet volume ratio Platelets (Bld) [#/Vol] 280 10*3/uL 140 - 440 10*3/uL [facility] [employer] RBC (Bld) [#/Vol] 4.40 10*6/uL 3.80 - 5.20 10*6/uL [facility] [employer] WBC (Bld) [#/Vol] 7.1 10*3/uL 3.6 - 10.7 10*3/uL [facility] CT Abdomen and Pelvis W cont rast Oscar 04-15-2024 1. No acute process. 2. Unchanged large ventral hernia containing nonobstructed large and small bowel. Report Dictated on Electronically Signed By: Dilip Holliday MD Electronically Signed Date/Time: 04/15/2024 10:58 AM [facility]ALL [facility] 1985 [id number] Exam Date/Time: 04/15/2024 10:32 Procedure: CT ABDOMEN PELVIS W CONTRAST Ordering Provider: ZAMORA KASSIDY Reason For Exam: Large ventral hernia, partial bowel obstruction on 04/10/2024, worsening pain EXAMINATION: CT ABDOMEN PELVIS W CONTRAST CLINICAL HISTORY: Large ventral hernia, partial bowel obstruction on 04/10/2024, worsening pain COMPARISON: 04/10/2024 TECHNIQUE: Contiguous axial images were obtained through the abdomen and pelvis from the level of the diaphragmatic domes through the pubic symphysis following bolus administration of intravenous contrast. Dose reduction was employed with automated exposure control. FINDINGS: Included images of the lower thorax: No focal lung consolidation or pleural effusion. Hepatobiliary: Unremarkable liver without biliary dilation evident. The gallbladder is surgically absent. Pancreas: Unremarkable Spleen: Unremarkable Adrenal Glands: Unremarkable Kidneys and ureters: No hydronephrosis. Tiny nonobstructing right renal calculus. Continued stability of the 1.6 cm exophytic left interpolar and lower pole renal lesions, and small cortical right renal cyst. Abdominal vasculature: Unremarkable GI tract: Occluded on prior studies, there is a large ventral hernia containing multiple loops of small bowel and much of the colon. There is no bowel obstruction. Small bowel anastomotic sites are again seen in the hernia. Peritoneum and retroperitoneum: No free fluid or free air is noted. Lymph Nodes: No abdominal lymphadenopathy is evident. Pelvis: Unremarkable Visualized musculoskeletal structures: No acute fracture or destructive osseous lesion is identified. [facility] Dilip Holliday M D - 04/15/2024 Patient Name: MEL WALL : 1985 Exam Date/Time: 04/15/2024 10:32 Procedure: CT ABDOMEN PELVIS W CONTRAST Ordering Provider: ZAMORA KASSIDY Reason For Exam: Large ventral hernia, partial bowel obstruction on 04/10/2024, worsening pain EXAMINATION: CT ABDOMEN PELVIS W CONTRAST CLINICAL HISTORY: Large ventral hernia, partial bowel obstruction on 04/10/2024, worsening pain COMPARISON: 04/10/2024 TECHNIQUE: Contiguous axial images were obtained through the abdomen and pelvis from the level of the diaphragmatic domes through the pubic symphysis following bolus administration of intravenous contrast. Dose reduction was employed with automated exposure control. FINDINGS: Included images of the lower thorax: No focal lung consolidation or pleural effusion. Hepatobiliary: Unremarkable liver without biliary dilation evident. The gallbladder is surgically absent. Pancreas: Unremarkable Spleen: Unremarkable Adrenal Glands: Unremarkable Kidneys and ureters: No hydronephrosis. Tiny nonobstructing right renal calculus. Continued stability of the 1.6 cm exophytic left interpolar and lower pole renal lesions, and small cortical right renal cyst. Abdominal vasculature: Unremarkable GI tract: Occluded on prior studies, there is a large ventral hernia containing multiple loops of small bowel and much of the colon. There is no bowel obstruction. Small bowel anastomotic sites are again seen in the hernia. Peritoneum and retroperitoneum: No free fluid or free air is noted. Lymph Nodes: No abdominal lymphadenopathy is evident. Pelvis: Unremarkable Visualized musculoskeletal structures: No acute fracture or destructive osseous lesion is identified. IMPRESSION: 1. No acute process. 2. Unchanged large ventral hernia containing nonobstructed large and small bowel. Report Dictated on Electronically Signed By: Dilip Holliday MD Electronically Signed Date/Time: 04/15/2024 10:58 AM EDT [facility] Radiology Study observation (narrative) [facility] CT Abdomen and Pelvis W cont rast IVOrdered By: Dilip Holliday on 04-15-2024 [facility] Work Phone: Comprehensive metabolic 1998 panelon 04-15-2024 Albumin [Mass/Vol] 4.3 g/dL 3.5 - 5.0 g/dL [facility] ALP [Catalytic activity/Vol] 43 U/L 38 - 126 U/L [facility] ALT [Catalytic activity/Vol] 31 U/L 0 - 34 U/L [facility] Anion gap [Moles/Vol] 12 mmol/L 3 - 13 mmol/L [facility] AST [Catalytic activity/Vol] 26 U/L 15 - 46 U/L [facility] Bilirubin [Mass/Vol] 0.2 mg/dL 0.2 - 1 .3 mg/dL [facility] Calcium [Mass/Vol] 9.0 mg/dL 8.4 - 10. 4 mg/dL [facility] Chloride [Moles/Vol] 108 mmol/L High 98 - 10 7 mmol/L [facility] CO2 [Moles/Vol] 20 mmol/L Low 22 - 30 mmol/L [facility] Creatinine [Mass/Vol] 0.48 mg/dL Low 0.52 - 1.04 mg/dL [facility] GFR/1.73 sq M.predicted MDRD (S/P/Bld) [Vol rate/Area] - PINF [facility] Comment on above: Calculation based on the Chronic Kidney Disease Epidemiology Collaboration (CKD-EPI) equation refit without adjustment for race Glucose [Mass/Vol] 189 mg/dL High 70 - 100 mg/dL [facility] Interpretation and review of laboratory results Abnormal [facility] Potassium [Moles/Vol] 3.2 mmol/L Low 3.5 - 5.1 mmol/L [facility] Protein [Mass/Vol] 7.0 g/dL 6.3 - 8.2 g/dL [facility] Sodium [Moles/Vol] 139 mmol/L 135 - 145 mmol/L [facility] Urea nitrogen [Mass/Vol] 9 mg/dL 7 - 17 mg/dL [facility] Laboratory - Chemistry and C hemistry - challengeon 04-15-2024 Lipase [Catalytic activity/Vol] 113 U/L 23 - 300 U/L [facility] Beta HCG ( test) Ql Negative Negative [facility] Comment on above: Please note: Very di lute urine specimens, as indicated by a low specific gravity, may not contain loan representative levels of hCG. If is still suspected, a first morning urine specimen should be collected 48 hours later and tested. Beta HCG ( test) Ql (U) is the most common reason for HCG in urine, although choriocarcinoma, hydatidiform mole, and certain nontrophoblastic malignancies also result in detectable urinary HCG levels. Sensitivity = 20mIU/mL. [facility] Lipase [Catalytic activity/V ol]on 04-15-2024 Interpretation and review of laboratory results Normal [facility] No Panel Informationon 04-15 [facility] Urinalysis complete panel (U )Ordered By: Kendra Laurent on 04-15-2024 Bacteria LM.HPF (Urine sed) [#/Area] Many Abnormal Negative /HPF [facility] Bilirubin Ql (U) Negative Negative mg/dL [facility] Clarity (U) Turbid Abnormal Clear [facility] Color (U) Yellow Lt. Yellow [facility] Epithelial cells.squamous LM.HPF (Urine sed) [#/Area] 11-25 Abnormal [facility] Glucose Ql (U) Normal Normal (<70) mg/dL [facility] Hemoglobin Ql (U) Negative Negative mg/dL [facility] Interpretation and review of laboratory results Abnormal [facility] Ketones (U) [Mass/Vol] Negative Negative mg/dL [facility] Leukocyte esterase Test strip Ql (U) 25 Abnormal Negative [place]/uL [facility] Nitrite Ql (U) Negative Negative [facility] Non-Squamous Epithalial Cells, Urine 0-2 Abnormal Negative /HPF [facility] pH (U) 6.5 [pH] 5.0 - 8.0 pH [facility] Protein (U) [Mass/Vol] 20 mg/dL Abnormal Negative [facility] RBC LM.HPF (Urine sed) [#/Area] 0-2 [facility] Specific gravity (U) [Rel density] 1.024 1.005 - 1.030 [facility] Urobilinogen (U) [Mass/Vol] Normal Normal (0-1) mg/dL [facility] Volume, Urine 12 mL [facility] WBC LM.HPF (Urine sed) [#/Area] 6-10 Abnormal [facility] Basic metabolic 1998 panelon 04-13-2024 Anion gap [Moles/Vol] 10 mmol/L 3 - 13 mmol/L [facility] Calcium [Mass/Vol] 9.6 mg/dL 8.4 - 10. 4 mg/dL [facility] Chloride [Moles/Vol] 102 mmol/L 98 - 10 7 mmol/L [facility] CO2 [Moles/Vol] 25 mmol/L 22 - 30 mmol/L [facility] Creatinine [Mass/Vol] 0.50 mg/dL Low 0.52 - 1.04 mg/dL [facility] GFR/1.73 sq M.predicted MDRD (S/P/Bld) [Vol rate/Area] - PINF [facility] Comment on above: Calculation based on the Chronic Kidney Disease Epidemiology Collaboration (CKD-EPI) equation refit without adjustment for race Glucose [Mass/Vol] 91 mg/dL 70 - 100 mg/dL [facility] Interpretation and review of laboratory results Abnormal [facility] Potassium [Moles/Vol] 4.0 mmol/L 3.5 - 5.1 mmol/L [facility] Sodium [Moles/Vol] 138 mmol/L 135 - 145 mmol/L [facility] Urea nitrogen [Mass/Vol] 2 mg/dL Low 7 - 17 mg/dL [facility] CBC panel Auto (Bld)Ordered By: Tom Cespedes on 04-13-2024 Erythrocyte distribution width (RBC) [Ratio] 12.3 % 11.5 - 15.0 % [facility] Hematocrit (Bld) [Volume fraction] 42.3 % 35.0 - 47.0 % [facility] Hemoglobin (Bld) [Mass/Vol] 13.7 g/dL 11.7 - 16.0 g/dL [facility] Interpretation and review of laboratory results Normal [facility] MCH (RBC) [Entitic mass] 30.0 pg 26.0 - 34.0 pg [facility] MCHC (RBC) [Mass/Vol] 32.4 % 30.5 - 36.0 % [facility] MCV (RBC) [Entitic vol] 92.8 fL 77.0 - 99.0 fL [facility] Platelet mean volume (Bld) [Entitic vol] 9.0 fL 9.0 - 12.7 fL [facility] Platelets (Bld) [#/Vol] 284 10*3/uL 140 - 440 10*3/uL [facility] RBC (Bld) [#/Vol] 4.56 10*6/uL 3.80 - 5.20 10*6/uL [facility] WBC (Bld) [#/Vol] 7.0 10*3/uL 3.6 - 10.7 10*3/uL [facility] Basic metabolic 1998 panelon 04-12-2024 Anion gap [Moles/Vol] 4 mmol/L 3 - 13 mmol/L [facility] Calcium [Mass/Vol] 8.5 mg/dL 8.4 - 10. 4 mg/dL [facility] Chloride [Moles/Vol] 106 mmol/L 98 - 10 7 mmol/L [facility] CO2 [Moles/Vol] 25 mmol/L 22 - 30 mmol/L [facility] Creatinine [Mass/Vol] 0.43 mg/dL Low 0.52 - 1.04 mg/dL [facility] GFR/1.73 sq M.predicted MDRD (S/P/Bld) [Vol rate/Area] - PINF [facility] Comment on above: Calculation based on the Chronic Kidney Disease Epidemiology Collaboration (CKD-EPI) equation refit without adjustment for race Glucose [Mass/Vol] 93 mg/dL 70 - 100 mg/dL [facility] Interpretation and review of laboratory results Abnormal [facility] Potassium [Moles/Vol] 3.7 mmol/L 3.5 - 5.1 mmol/L [facility] Sodium [Moles/Vol] 135 mmol/L 135 - 145 mmol/L [facility] Urea nitrogen [Mass/Vol] mg/dL Low 7 - 17 mg/dL [facility] CBC panel Auto (Bld)on 04-12 Erythrocyte distribution width (RBC) [Ratio] 12.5 % 11.5 - 15.0 % [facility] Hematocrit (Bld) [Volume fraction] 34.8 % Low 35.0 - 47.0 % [facility] Hemoglobin (Bld) [Mass/Vol] 11.4 g/dL Low 11.7 - 16.0 g/dL [facility] Interpretation and review of laboratory results Abnormal [facility] MCH (RBC) [Entitic mass] 30.6 pg 26.0 - 34.0 pg [facility] MCHC (RBC) [Mass/Vol] 32.8 % 30.5 - 36.0 % [facility] MCV (RBC) [Entitic vol] 93.5 fL 77.0 - 99.0 fL [facility] Platelet mean volume (Bld) [Entitic vol] 9.1 fL 9.0 - 12.7 fL [facility] Platelets (Bld) [#/Vol] 217 10*3/uL 140 - 440 10*3/uL [facility] RBC (Bld) [#/Vol] 3.72 10*6/uL Low 3.80 - 5.20 10*6/uL [facility] WBC (Bld) [#/Vol] 4.7 10*3/uL 3.6 - 10.7 10*3/uL [facility] Laboratory - Chemistry and C hemistry - challengeon 04-12-2024 Lactate [Moles/Vol] 0.9 mmol/L 0.7 - 2. 0 mmol/L [facility] No Panel Informationon 04-12 Interpretation and review of laboratory results Normal [facility] Basic metabolic 1998 panelon 04-11-2024 Anion gap [Moles/Vol] 4 mmol/L 3 - 13 mmol/L [facility] Calcium [Mass/Vol] 8.5 mg/dL 8.4 - 10. 4 mg/dL [facility] Chloride [Moles/Vol] 108 mmol/L High 98 - 10 7 mmol/L [facility] CO2 [Moles/Vol] 25 mmol/L 22 - 30 mmol/L [facility] Creatinine [Mass/Vol] 0.44 mg/dL Low 0.52 - 1.04 mg/dL [facility] GFR/1.73 sq M.predicted MDRD (S/P/Bld) [Vol rate/Area] - PINF [facility] Comment on above: Calculation based on the Chronic Kidney Disease Epidemiology Collaboration (CKD-EPI) equation refit without adjustment for race Glucose [Mass/Vol] 97 mg/dL 70 - 100 mg/dL [facility] Interpretation and review of laboratory results Abnormal [facility] Potassium [Moles/Vol] 3.8 mmol/L 3.5 - 5.1 mmol/L [facility] Sodium [Moles/Vol] 137 mmol/L 135 - 145 mmol/L [facility] Urea nitrogen [Mass/Vol] 4 mg/dL Low 7 - 17 mg/dL [facility] CBC panel Auto (Bld)on 04-11 Erythrocyte distribution width (RBC) [Ratio] 12.7 % 11.5 - 15.0 % [facility] Hematocrit (Bld) [Volume fraction] 36.0 % 35.0 - 47.0 % [facility] Hemoglobin (Bld) [Mass/Vol] 11.9 g/dL 11.7 - 16.0 g/dL [facility] Interpretation and review of laboratory results Abnormal [facility] MCH (RBC) [Entitic mass] 30.7 pg 26.0 - 34.0 pg [facility] MCHC (RBC) [Mass/Vol] 33.1 % 30.5 - 36.0 % [facility] MCV (RBC) [Entitic vol] 93.0 fL 77.0 - 99.0 fL [facility] Platelet mean volume (Bld) [Entitic vol] 8.9 fL Low 9.0 - 12.7 fL [facility] Platelets (Bld) [#/Vol] 216 10*3/uL 140 - 440 10*3/uL [facility] RBC (Bld) [#/Vol] 3.87 10*6/uL 3.80 - 5.20 10*6/uL [facility] WBC (Bld) [#/Vol] 4.2 10*3/uL 3.6 - 10.7 10*3/uL [facility] Laboratory - Chemistry and C hemistry - challengeon 04-11-2024 Lactate [Moles/Vol] 2.4 mmol/L High 0.7 - 2. 0 mmol/L [facility] No Panel Informationon 04-11 Interpretation and review of laboratory results Abnormal [facility] XR Abdomen Single viewon FINDINGS AND IMPRESS ION: Residual GI contrast is present from the cecum to the rectum. There is no appreciable contrast within the small bowel loops. Prior CT exam demonstrates a large ventral hernia containing loops of small bowel as well as the cecum, ascending colon, and transverse colon. There is paucity of air within the small bowel loops. Bilateral clips overlie the regions of the fallopian tubes. Report Dictated on Electronically Signed By: Michelle Velazquez MD Electronically Signed Date/Time: 04/11/2024 9:57 AM EDT [facility] Patient Name: MEL WALL : 1985 Exam Date/Time: 04/11/2024 09:57 Procedure: XR ABDOMEN 1 VIEW Ordering Provider: TAYLOR LOGAN Reason For Exam: interval eval after CT PO con INDICATION: 38-year-old female; large ventral hernia which contains multiple loops of small bowel as well as the cecum, ascending colon, and transverse colon; evaluate progression of GI contrast. VIEWS: Abdomen AP-2 images COMPARISON: CT abdomen and pelvis 04/10/2024 [facility] Michelle Velazquez MD - 04/11/2024 Patient Name: MEL WALL : 1985 Exam Date/Time: 04/11/2024 09:57 Procedure: XR ABDOMEN 1 VIEW Ordering Provider: TAYLOR LOGAN Reason For Exam: interval eval after CT PO con INDICATION: 38-year-old female; large ventral hernia which contains multiple loops of small bowel as well as the cecum, ascending colon, and transverse colon; evaluate progression of GI contrast. VIEWS: Abdomen AP-2 images COMPARISON: CT abdomen and pelvis 04/10/2024 IMPRESSION: FINDINGS AND IMPRESSION: Residual GI contrast is present from the cecum to the rectum. There is no appreciable contrast within the small bowel loops. Prior CT exam demonstrates a large ventral hernia containing loops of small bowel as well as the cecum, ascending colon, and transverse colon. There is paucity of air within the small bowel loops. Bilateral clips overlie the regions of the fallopian tubes. Report Dictated on Electronically Signed By: Michelle Velazquez MD Electronically Signed Date/Time: 04/11/2024 9:57 AM EDT [facility] (narrative) [facility] CBC W Auto Differential pane l (Bld)on 04-10-2024 Basophils (Bld) [#/Vol] 0.0 10*3/uL 0.0 - 0.2 10*3/uL [facility] Basophils/100 WBC (Bld) 0.5 % 0.0 - 2.0 % [facility] Eosinophils (Bld) [#/Vol] 0.1 10*3/uL 0.0 - 0.5 10*3/uL [facility] Eosinophils/100 WBC (Bld) 2.5 % 0.0 - 6.0 % [facility] Erythrocyte distribution width (RBC) [Ratio] 12.7 % 11.5 - 15.0 % [facility] Hematocrit (Bld) [Volume fraction] 40.7 % 35.0 - 47.0 % [facility] Hemoglobin (Bld) [Mass/Vol] 13.7 g/dL 11.7 - 16.0 g/dL [facility] Immature granulocytes (Bld) [#/Vol] 0.0 10*3/uL NINF - 0.1 10*3/uL [facility] Immature granulocytes/100 WBC (Bld) 0.2 % 0.0 - 2.0 % [facility] Interpretation and review of laboratory results Abnormal [facility] Lymphocytes (Bld) [#/Vol] 1.5 10*3/uL 1.0 - 4.3 10*3/uL [facility] Lymphocytes/100 WBC (Bld) 34.7 % 15.0 - 45.0 % [facility] MCH (RBC) [Entitic mass] 31.1 pg 26.0 - 34.0 pg [facility] MCHC (RBC) [Mass/Vol] 33.7 % 30.5 - 36.0 % [facility] MCV (RBC) [Entitic vol] 92.5 fL 77.0 - 99.0 fL [facility] Monocytes (Bld) [#/Vol] 0.3 10*3/uL 0.0 - 0.9 10*3/uL [facility] Monocytes/100 WBC (Bld) 6.9 % 5.0 - 13.0 % [facility] Neutrophils (Bld) [#/Vol] 2.4 10*3/uL 1.8 - 7.5 10*3/uL [facility] Neutrophils/100 WBC (Bld) 55.2 % 38.0 - 82.0 % [facility] Nucleated RBC/100 WBC (Bld) [Ratio] 0.0 % [facility] [employer] Platelet mean volume (Bld) [Entitic vol] 8.7 fL Low 9.0 - 12.7 fL [facility] [employer] Comment on above: MPV is a calculated measurement using platelet volume ratio Platelets (Bld) [#/Vol] 221 10*3/uL 140 - 440 10*3/uL [facility] [employer] RBC (Bld) [#/Vol] 4.40 10*6/uL 3.80 - 5.20 10*6/uL [facility] [employer] WBC (Bld) [#/Vol] 4.4 10*3/uL 3.6 - 10.7 10*3/uL [facility] CT Abdomen and Pelvis W cont rast Oscar 04-10-2024 There is a mildly dilated loop of small bowel at the midline measuring 3.6 cm in diameter. This bowel loop continues into the large ventral hernia and is decompressed at the site of entry point. The large wide neck ventral hernia contains multiple loops of decompressed small bowel as well as the cecum, ascending colon, and transverse colon. Findings are concerning for least partial bowel obstruction. Right renal nephrolithiasis. No obstructive uropathy. Bilateral renal cysts. Additional findings, as above. Report Dictated on Electronically Signed By: Michelle Velazquez MD Electronically Signed Date/Time: 04/10/2024 10:21 AM [facility] 1985 [id number] Exam Date/Time: 04/10/2024 10:09 Procedure: CT ABDOMEN PELVIS W CONTRAST Ordering Provider: AHN BETHANY Reason For Exam: Bowel obstruction suspected CT ABDOMEN AND PELVIS Indication: 38-year-old female; bowel obstruction suspected; nonfocal abdominal pain since 3:00am with nausea and vomiting; surgical history includes appendectomy and cholecystectomy and hernia repair Scan Parameters: Multiple axial CT images were obtained of the abdomen and pelvis. Coronal and sagittal reconstructions were reviewed as well. ALARA protocol. Dose reduction was employed with automated exposure control. Contrast: 75 mL of Isovue-370 IV contrast; no oral contrast Comparison: 11/13/2023 and 09/13/2023 FINDINGS: Lung bases: The lung bases are clear. Heart: The heart is not enlarged. There is no pericardial effusion. Osseous structures: There is a stable 12 mm sclerotic lesion of the T9 vertebral body, unchanged from 09/13/2023. Liver: The hepatic contour is unremarkable. Gallbladder/Biliary tree: No biliary dilatation. The gallbladder is absent. Spleen: The spleen measures upper limits of normal in size. Adrenals: Mild left adrenal gland hyperplasia. Pancreas: Normal. Kidneys/Bladder: Bilateral renal cysts are present, no follow-up necessary. There is no hydronephrosis. A punctate nonobstructive right renal calculi are present. The bladder contour is normal. Adnexa: The uterus is anteverted. Bilateral ovarian follicular cystic changes are present. Bilateral fallopian tube clips noted. Hernias and GI tract: There is a large wide neck ventral hernia (10 cm neck axial) which contains multiple loops of small and large bowel as well as portions of the stomach. There is no stranding in the fat and there is no significant bowel distention within the hernia. The appendix is surgically absent. Fecal retention is present. The transverse colon, ascending colon, and cecum are present within the large hernia. There are multiple loops of decompressed small bowel within the large hernia some of which contain GI contrast and some of which do not. Contrast is present within the stomach and duodenum as well as multiple loops of proximal small bowel. There is a mildly dilated loop of small bowel at the midline measuring 3.6 cm in diameter. This bowel loop continues into the large ventral hernia and is decompressed the site of entry point. Peritoneal Cavity/Retroperitoneum: No lymphadenopathy. Vasculature: There is no significant atherosclerotic disease. [facility] Michelle Velazquez MD - 04/10/2024 Patient Name: MEL WALL : 1985 Exam Date/Time: 04/10/2024 10:09 Procedure: CT ABDOMEN PELVIS W CONTRAST Ordering Provider: AHN BETHANY Reason For Exam: Bowel obstruction suspected CT ABDOMEN AND PELVIS Indication: 38-year-old female; bowel obstruction suspected; nonfocal abdominal pain since 3:00am with nausea and vomiting; surgical history includes appendectomy and cholecystectomy and hernia repair Scan Parameters: Multiple axial CT images were obtained of the abdomen and pelvis. Coronal and sagittal reconstructions were reviewed as well. ALARA protocol. Dose reduction was employed with automated exposure control. Contrast: 75 mL of Isovue-370 IV contrast; no oral contrast Comparison: 11/13/2023 and 09/13/2023 FINDINGS: Lung bases: The lung bases are clear. Heart: The heart is not enlarged. There is no pericardial effusion. Osseous structures: There is a stable 12 mm sclerotic lesion of the T9 vertebral body, unchanged from 09/13/2023. Liver: The hepatic contour is unremarkable. Gallbladder/Biliary tree: No biliary dilatation. The gallbladder is absent. Spleen: The spleen measures upper limits of normal in size. Adrenals: Mild left adrenal gland hyperplasia. Pancreas: Normal. Kidneys/Bladder: Bilateral renal cysts are present, no follow-up necessary. There is no hydronephrosis. A punctate nonobstructive right renal calculi are present. The bladder contour is normal. Adnexa: The uterus is anteverted. Bilateral ovarian follicular cystic changes are present. Bilateral fallopian tube clips noted. Hernias and GI tract: There is a large wide neck ventral hernia (10 cm neck axial) which contains multiple loops of small and large bowel as well as portions of the stomach. There is no stranding in the fat and there is no significant bowel distention within the hernia. The appendix is surgically absent. Fecal retention is present. The transverse colon, ascending colon, and cecum are present within the large hernia. There are multiple loops of decompressed small bowel within the large hernia some of which contain GI contrast and some of which do not. Contrast is present within the stomach and duodenum as well as multiple loops of proximal small bowel. There is a mildly dilated loop of small bowel at the midline measuring 3.6 cm in diameter. This bowel loop continues into the large ventral hernia and is decompressed the site of entry point. Peritoneal Cavity/Retroperitoneum: No lymphadenopathy. Vasculature: There is no significant atherosclerotic disease. IMPRESSION: There is a mildly dilated loop of small bowel at the midline measuring 3.6 cm in diameter. This bowel loop continues into the large ventral hernia and is decompressed at the site of entry point. The large wide neck ventral hernia contains multiple loops of decompressed small bowel as well as the cecum, ascending colon, and transverse colon. Findings are concerning for least partial bowel obstruction. Right renal nephrolithiasis. No obstructive uropathy. Bilateral renal cysts. Additional findings, as above. Report Dictated on Electronically Signed By: Michelle Velazquez MD Electronically Signed Date/Time: 04/10/2024 10:21 AM EDT [facility] Radiology Study observation (narrative) [facility] CT Abdomen and Pelvis W cont rast IVOrdered By: Michelle Velazquez on 04-10-2024 [facility] Work Phone: Comprehensive metabolic 1998 panelon 04-10-2024 Albumin [Mass/Vol] 4.2 g/dL 3.5 - 5.0 g/dL [facility] ALP [Catalytic activity/Vol] 46 U/L 38 - 126 U/L [facility] ALT [Catalytic activity/Vol] 17 U/L 0 - 34 U/L [facility] Anion gap [Moles/Vol] 8 mmol/L 3 - 13 mmol/L [facility] AST [Catalytic activity/Vol] 20 U/L 15 - 46 U/L [facility] Bilirubin [Mass/Vol] 0.6 mg/dL 0.2 - 1 .3 mg/dL [facility] Calcium [Mass/Vol] 9.0 mg/dL 8.4 - 10. 4 mg/dL [facility] Chloride [Moles/Vol] 110 mmol/L High 98 - 10 7 mmol/L [facility] CO2 [Moles/Vol] 20 mmol/L Low 22 - 30 mmol/L [facility] Creatinine [Mass/Vol] 0.49 mg/dL Low 0.52 - 1.04 mg/dL [facility] GFR/1.73 sq M.predicted MDRD (S/P/Bld) [Vol rate/Area] - PINF [facility] Comment on above: Calculation based on the Chronic Kidney Disease Epidemiology Collaboration (CKD-EPI) equation refit without adjustment for race Glucose [Mass/Vol] 163 mg/dL High 70 - 100 mg/dL [facility] Interpretation and review of laboratory results Abnormal [facility] Potassium [Moles/Vol] 2.9 mmol/L Low 3.5 - 5.1 mmol/L [facility] Protein [Mass/Vol] 6.8 g/dL 6.3 - 8.2 g/dL [facility] Sodium [Moles/Vol] 139 mmol/L 135 - 145 mmol/L [facility] Urea nitrogen [Mass/Vol] 4 mg/dL Low 7 - 17 mg/dL [facility] Laboratory - Chemistry and C hemistry - challengeon 04-10-2024 Lactate [Moles/Vol] 2.7 mmol/L High 0.7 - 2. 0 mmol/L [facility] Magnesium [Mass/Vol] 1.9 mg/dL 1.6 - 2 .3 mg/dL [facility] Lactate [Moles/Vol] 2.6 mmol/L High 0.7 - 2. 0 mmol/L [facility] Lipase [Catalytic activity/Vol] 63 U/L 23 - 300 U/L [facility] Lipase [Catalytic activity/V ol]on 04-10-2024 Interpretation and review of laboratory results Normal [facility] Magnesium [Mass/Vol]on 04-10 Interpretation and review of laboratory results Normal [facility] No Panel Informationon 04-10 Interpretation and review of laboratory results Abnormal [facility] Interpretation and review of laboratory results Abnormal [facility] XR Abdomen Single viewon 1. Nonspecific, nonobstructive bowel gas pattern, which may represent adynamic ileus. Follow-up as indicated. Report Dictated on Electronically Signed By: Sunil Thompson MD Electronically Signed Date/Time: 04/10/2024 7:49 PM EDT [facility] [employer] [facility] Patient Name: MEL WALL : 1985 [id number] Exam Date/Time: 04/10/2024 18:40 Procedure: XR ABDOMEN 1 VIEW Ordering Provider: TAYLOR LOGAN Reason For Exam: interval eval after CT PO con ABDOMEN SINGLE VIEW CLINICAL INDICATION: interval eval after CT PO con. TECHNIQUE: KUB view(s) of the abdomen. COMPARISON: KUB, September,; CT abdomen and pelvis, April,. FINDINGS: Oral contrast extends into the right colon, which appears prominent, nonspecific. No other significant bowel dilatation. No apparent pneumoperitoneum, although evaluation for this entity is limited due to supine positioning. No abnormal calcifications. Tubal ligation clips again project over the pelvis. Osseous structures grossly unremarkable. [facility] Sunil Thompson MD - 04/10/2024 Patient Name: MEL WALL : 1985 [id number] Exam Date/Time: 04/10/2024 18:40 Procedure: XR ABDOMEN 1 VIEW Ordering Provider: TAYLOR LOGAN Reason For Exam: interval eval after CT PO con ABDOMEN SINGLE VIEW CLINICAL INDICATION: interval eval after CT PO con. TECHNIQUE: KUB view(s) of the abdomen. COMPARISON: KUB, September,; CT abdomen and pelvis, April,. FINDINGS: Oral contrast extends into the right colon, which appears prominent, nonspecific. No other significant bowel dilatation. No apparent pneumoperitoneum, although evaluation for this entity is limited due to supine positioning. No abnormal calcifications. Tubal ligation clips again project over the pelvis. Osseous structures grossly unremarkable. IMPRESSION: 1. Nonspecific, nonobstructive bowel gas pattern, which may represent adynamic ileus. Follow-up as indicated. Report Dictated on Electronically Signed By: Sunil Thompson MD Electronically Signed Date/Time: 04/10/2024 7:49 PM EDT [facility] [employer] Radiology Study observation (narrative) [facility] [employer] XR Abdomen Single viewOrdere d By: Sunil Thompson on 04-10-2024 [facility] [employer] Work Phone: Glucose (Bld) [Mass/Vol]on 0 01-31-2024 Glucose [Mass/Vol] 93 mg/dL 65 - 99 mg/dL [facility] [employer] Comment on above: Fasting reference interval Hemoglobin A1con 01-31-2024 HbA1c (Bld) [Mass fraction] 5.5 % [facility] Comment on above: For the purpose of s creening for the presence of diabetes: <5.7% Consistent with the absence of diabetes 5.7-6.4% Consistent with increased risk for diabetes (prediabetes) > or =6.5% Consistent with diabetes This assay result is consistent with a decreased risk of diabetes. Currently, no consensus exists regarding use of hemoglobin A1c for diagnosis of diabetes in children. According to [place] [employer] (ADA) guidelines, hemoglobin A1c <7.0% represents optimal control in non- diabetic patients. Different metrics may apply to specific patient populations. Standards of Medical Care in Diabetes(ADA). This test was performed on the [employer] c503 platform. Effective 09/26/23, a change in test platforms from the [employer] to the [employer]indsay c503 may have shifted HbA1c results compared to historical results. Based on laboratory validation testing conducted at [facility], the [employer] platform relative to the [employer] platform had an average increase in HbA1c value of < or = 0.3%. This difference is within accepted variability established by the National Glycohemoglobin Standardization Program. Note that not all individuals will have had a shift in their results and direct comparisons between historical and current results for testing conducted on different platforms is not recommended. No Panel Informationon 01-30 [facility] CBC W Auto Differential pane l (Bld)Ordered By: Melba Grande on 12-29-2023 Basophils (Bld) [#/Vol] 0.0 10*3/uL 0.0 - 0.2 10*3/uL [facility] [employer] Basophils/100 WBC (Bld) 0.3 % 0.0 - 2.0 % [facility] Eosinophils (Bld) [#/Vol] 0.3 10*3/uL 0.0 - 0.5 10*3/uL [facility] Eosinophils/100 WBC (Bld) 3.7 % 0.0 - 6.0 % [facility] Erythrocyte distribution width (RBC) [Ratio] 12.4 % 11.5 - 15.0 % [facility] Hematocrit (Bld) [Volume fraction] 40.4 % 35.0 - 47.0 % [facility] Hemoglobin (Bld) [Mass/Vol] 13.6 g/dL 11.7 - 16.0 g/dL [facility] Immature granulocytes (Bld) [#/Vol] 0.0 10*3/uL NINF - 0.1 10*3/uL [facility] Immature granulocytes/100 WBC (Bld) 0.3 % 0.0 - 2.0 % [facility] Interpretation and review of laboratory results Normal [facility] Lymphocytes (Bld) [#/Vol] 2.8 10*3/uL 1.0 - 4.3 10*3/uL [facility] Lymphocytes/100 WBC (Bld) 31.3 % 15.0 - 45.0 % [facility] MCH (RBC) [Entitic mass] 31.2 pg 26.0 - 34.0 pg [facility] MCHC (RBC) [Mass/Vol] 33.7 % 30.5 - 36.0 % [facility] MCV (RBC) [Entitic vol] 92.7 fL 77.0 - 99.0 fL [facility] Monocytes (Bld) [#/Vol] 0.5 10*3/uL 0.0 - 0.9 10*3/uL [facility] Monocytes/100 WBC (Bld) 6.1 % 5.0 - 13.0 % [facility] Neutrophils (Bld) [#/Vol] 5.2 10*3/uL 1.8 - 7.5 10*3/uL [facility] Neutrophils/100 WBC (Bld) 58.3 % 38.0 - 82.0 % [facility] Nucleated RBC/100 WBC (Bld) [Ratio] 0.0 % [facility] Platelet mean volume (Bld) [Entitic vol] 9.0 fL 9.0 - 12.7 fL [facility] Comment on above: MPV is a calculated measurement using platelet volume ratio Platelets (Bld) [#/Vol] 282 10*3/uL 140 - 440 10*3/uL [facility] RBC (Bld) [#/Vol] 4.36 10*6/uL 3.80 - 5.20 10*6/uL [facility] WBC (Bld) [#/Vol] 8.9 10*3/uL 3.6 - 10.7 10*3/uL [facility] Comprehensive metabolic 1998 panelon 12-29-2023 Albumin [Mass/Vol] 4.4 g/dL 3.5 - 5.0 g/dL [facility] ALP [Catalytic activity/Vol] 46 U/L 38 - 126 U/L [facility] ALT [Catalytic activity/Vol] 17 U/L 0 - 34 U/L [facility] Anion gap [Moles/Vol] 9 mmol/L 3 - 13 mmol/L [facility] AST [Catalytic activity/Vol] 20 U/L 15 - 46 U/L [facility] Bilirubin [Mass/Vol] 0.3 mg/dL 0.2 - 1 .3 mg/dL [facility] Calcium [Mass/Vol] 9.1 mg/dL 8.4 - 10. 4 mg/dL [facility] Chloride [Moles/Vol] 104 mmol/L 98 - 10 7 mmol/L [facility] CO2 [Moles/Vol] 22 mmol/L 22 - 30 mmol/L [facility] Creatinine [Mass/Vol] 0.47 mg/dL Low 0.52 - 1.04 mg/dL [facility] GFR/1.73 sq M.predicted MDRD (S/P/Bld) [Vol rate/Area] - PINF [facility] Comment on above: Calculation based on the Chronic Kidney Disease Epidemiology Collaboration (CKD-EPI) equation refit without adjustment for race Glucose [Mass/Vol] 102 mg/dL High 70 - 100 mg/dL [facility] Interpretation and review of laboratory results Abnormal [facility] Potassium [Moles/Vol] 4.2 mmol/L 3.5 - 5.1 mmol/L [facility] Protein [Mass/Vol] 7.2 g/dL 6.3 - 8.2 g/dL [facility] Sodium [Moles/Vol] 135 mmol/L 135 - 145 mmol/L [facility] Urea nitrogen [Mass/Vol] 15 mg/dL 7 - 17 mg/dL [facility] Laboratory - Chemistry and C hemistry - challengeon 12-29-2023 Lipase [Catalytic activity/Vol] 199 U/L 23 - 300 U/L [facility] Lipase [Catalytic activity/V ol]on 12-29-2023 Interpretation and review of laboratory results Normal [facility] No Panel Informationon 12-28 [facility] Urinalysis complete panel (U )Ordered By: Eulalia Padilla on 12-29-2023 Bilirubin Ql (U) Negative Negative mg/dL [facility] Clarity (U) Turbid Abnormal Clear [facility] Color (U) Light Yellow Lt. Yellow [facility] Glucose Ql (U) Normal Normal (<70) mg/dL [facility] Hemoglobin Ql (U) Negative Negative mg/dL [facility] Interpretation and review of laboratory results Abnormal [facility] Ketones (U) [Mass/Vol] Negative Negative mg/dL [facility] Leukocyte esterase Test strip Ql (U) Negative Negative Peace/uL [facility] Nitrite Ql (U) Negative Negative [facility] pH (U) 6.5 [pH] 5.0 - 8.0 pH [facility] Protein (U) [Mass/Vol] Negative Negative mg/dL [facility] Specific gravity (U) [Rel density] 1.018 1.005 - 1.030 [facility] Urobilinogen (U) [Mass/Vol] Normal Normal (0-1) mg/dL [facility] RF Upper gastrointestinal tr act and Small bowel Single view W contrast Sarath 12-22-2023 The etiology of shelbie ent's symptoms is not certain. Mildly dilated proximal jejunum. Duodenal enterostomy not visualized. Transit time to cecum is 90 minutes. Report Dictated on Electronically Signed By: Regis Chakraborty MD Electronically Signed Date/Time: 12/22/2023 4:24 PM EDT [facility] Patient Name: MEL WALL : 1985 Exam Date/Time: 12/22/2023 11:16 Procedure: FL UPPER GI SINGLE CONTRAST WITH SMALL BOWEL FOLLOW THROUGH Ordering Provider: ANDERSON LEISA Reason For Exam: HEARTBURN UPPER GI AND SMALL BOWEL SERIES. CLINICAL INDICATOR: Abdominal pain. Biliopancreatic diversion. History of bowel obstruction and multiple hernia surgeries. COMPARISON: None. FLUOROSCOPY DOSE: Ka,r= 244.9 mGy TECHNIQUE: Biphasic upper GI is performed. Two more cups of barium were administered and the small bowel is studied with serial images up to and including 90 minutes . Spot images of the terminal ileum were obtained. FINDINGS: Barium and air are administered. The esophagus is studied in the upright and recumbent positions. The initial swallowing mechanism is unremarkable. The esophagus shows normal motility with normal course and caliber. The stomach and duodenum show normal mucosal patterns, with no discrete ulcer or mass. The proximal jejunum is mildly dilated. The duodenal enterostomy that was visualized endoscopically was not visualized on today's study. Ventral hernia containing bowel loops noted. The mucosal pattern appears normal. Ileocecal area is unremarkable. [facility] Regis Chakraborty MD - 12/22/2023 Patient Name: MEL WALL : 1985 Exam Date/Time: 12/22/2023 11:16 Procedure: FL UPPER GI SINGLE CONTRAST WITH SMALL BOWEL FOLLOW THROUGH Ordering Provider: ANDERSON LEISA Reason For Exam: HEARTBURN UPPER GI AND SMALL BOWEL SERIES. CLINICAL INDICATOR: Abdominal pain. Biliopancreatic diversion. History of bowel obstruction and multiple hernia surgeries. COMPARISON: None. FLUOROSCOPY DOSE: Deepthir= 244.9 mGy TECHNIQUE: Biphasic upper GI is performed. Two more cups of barium were administered and the small bowel is studied with serial images up to and including 90 minutes . Spot images of the terminal ileum were obtained. FINDINGS: Barium and air are administered. The esophagus is studied in the upright and recumbent positions. The initial swallowing mechanism is unremarkable. The esophagus shows normal motility with normal course and caliber. The stomach and duodenum show normal mucosal patterns, with no discrete ulcer or mass. The proximal jejunum is mildly dilated. The duodenal enterostomy that was visualized endoscopically was not visualized on today's study. Ventral hernia containing bowel loops noted. The mucosal pattern appears normal. Ileocecal area is unremarkable. IMPRESSION: The etiology of patient's symptoms is not certain. Mildly dilated proximal jejunum. Duodenal enterostomy not visualized. Transit time to cecum is 90 minutes. Report Dictated on Electronically Signed By: Regis Chakraborty MD Electronically Signed Date/Time: 12/22/2023 4:24 PM EDT [facility] Radiology Study observation (narrative) [facility] RF Upper gastrointestinal tr act and Small bowel Single view W contrast POOrdered By: Regis Chakraborty on 12-22-2023 [facility] Work Phone: Basic metabolic 1998 panelon 11-13-2023 Anion gap [Moles/Vol] 6 mmol/L 3 - 13 mmol/L [facility] Calcium [Mass/Vol] 8.8 mg/dL 8.4 - 10. 4 mg/dL [facility] Chloride [Moles/Vol] 110 mmol/L High 98 - 10 7 mmol/L [facility] CO2 [Moles/Vol] 21 mmol/L Low 22 - 30 mmol/L [facility] Creatinine [Mass/Vol] 0.44 mg/dL Low 0.52 - 1.04 mg/dL [facility] GFR/1.73 sq M.predicted MDRD (S/P/Bld) [Vol rate/Area] - PINF [facility] Comment on above: Calculation based on the Chronic Kidney Disease Epidemiology Collaboration (CKD-EPI) equation refit without adjustment for race Glucose [Mass/Vol] 103 mg/dL High 70 - 100 mg/dL [facility] Interpretation and review of laboratory results Abnormal [facility] Potassium [Moles/Vol] 4.3 mmol/L 3.5 - 5.1 mmol/L [facility] Sodium [Moles/Vol] 137 mmol/L 135 - 145 mmol/L [facility] Urea nitrogen [Mass/Vol] 14 mg/dL 7 - 17 mg/dL [facility] CBC panel Auto (Bld)on 11-13 Erythrocyte distribution width (RBC) [Ratio] 12.5 % 11.5 - 14.5 % [facility] Hematocrit (Bld) [Volume fraction] 40.2 % 35.0 - 47.0 % [facility] Hemoglobin (Bld) [Mass/Vol] 13.1 g/dL 11.7 - 16.0 g/dL [facility] Interpretation and review of laboratory results Normal [facility] MCH (RBC) [Entitic mass] 31.1 pg 26.0 - 34.0 pg [facility] MCHC (RBC) [Mass/Vol] 32.6 % 32.0 - 36.0 % [facility] MCV (RBC) [Entitic vol] 95.5 fL 80.0 - 98.0 fL [facility] Platelet mean volume (Bld) [Entitic vol] 8.8 fL 7.4 - 12.4 fL [facility] Comment on above: MPV is a calculated measurement using platelet volume ratio Platelets (Bld) [#/Vol] 241 10*3/uL 140 - 440 10*3/uL [facility] RBC (Bld) [#/Vol] 4.21 10*6/uL 3.8 - 5.20 10*6/uL [facility] WBC (Bld) [#/Vol] 8.3 10*3/uL 3.6 - 10.7 10*3/uL [facility] CT Abdomen WO contraston 1. No evidence of trang wel obstruction. 2. Unchanged large ventral hernia containing most of the large and small bowel. Report Dictated on Electronically Signed By: Dilip Holliday MD Electronically Signed Date/Time: 11/13/2023 11:16 AM EST [facility] Patient Name: MEL WALL : 1985 Exam Date/Time: 11/13/2023 10:53 Procedure: CT ABDOMEN PELVIS WO IV CONTRAST Ordering Provider: BORJAS JOSEPH Reason For Exam: Bowel obstruction suspected EXAMINATION: CT ABDOMEN PELVIS WO IV CONTRAST CLINICAL HISTORY: Bowel obstruction suspected COMPARISON: None TECHNIQUE: CT of the abdomen and pelvis without contrast. Dose reduction was employed with automated exposure control. FINDINGS: Included images of the lower thorax: No focal lung consolidation or pleural effusion. Hepatobiliary: Unremarkable liver without biliary dilation evident. The gallbladder is surgically absent. Pancreas: Unremarkable Spleen: Unremarkable Adrenal Glands: Unremarkable Kidneys and ureters: Punctate nonobstructing right renal calculus and stable small isodense left renal lesions which were likely hyperdense cysts on the basis of the contrast-enhanced study from 09/13/2023. No hydronephrosis. Abdominal vasculature: Unremarkable GI tract: The patient's large ventral hernia is unchanged, again containing most of the large and small bowel. There is no evidence of bowel obstruction. Patulous primary bowel anastomotic sites are again seen in the hernia. Peritoneum and retroperitoneum: No free fluid or free air is noted. Lymph Nodes: No abdominal lymphadenopathy is evident. Pelvis: Bilateral tubal ligation clips are present. Visualized musculoskeletal structures: No acute fracture or destructive osseous lesion is identified. Chronic sclerotic lesion in the T9 vertebral body is unchanged. [facility] Dilip Holliday M D - 11/13/2023 Patient Name: MEL WALL : 1985 Exam Date/Time: 11/13/2023 10:53 Procedure: CT ABDOMEN PELVIS WO IV CONTRAST Ordering Provider: BORJAS JOSEPH Reason For Exam: Bowel obstruction suspected EXAMINATION: CT ABDOMEN PELVIS WO IV CONTRAST CLINICAL HISTORY: Bowel obstruction suspected COMPARISON: None TECHNIQUE: CT of the abdomen and pelvis without contrast. Dose reduction was employed with automated exposure control. FINDINGS: Included images of the lower thorax: No focal lung consolidation or pleural effusion. Hepatobiliary: Unremarkable liver without biliary dilation evident. The gallbladder is surgically absent. Pancreas: Unremarkable Spleen: Unremarkable Adrenal Glands: Unremarkable Kidneys and ureters: Punctate nonobstructing right renal calculus and stable small isodense left renal lesions which were likely hyperdense cysts on the basis of the contrast-enhanced study from 09/13/2023. No hydronephrosis. Abdominal vasculature: Unremarkable GI tract: The patient's large ventral hernia is unchanged, again containing most of the large and small bowel. There is no evidence of bowel obstruction. Patulous primary bowel anastomotic sites are again seen in the hernia. Peritoneum and retroperitoneum: No free fluid or free air is noted. Lymph Nodes: No abdominal lymphadenopathy is evident. Pelvis: Bilateral tubal ligation clips are present. Visualized musculoskeletal structures: No acute fracture or destructive osseous lesion is identified. Chronic sclerotic lesion in the T9 vertebral body is unchanged. IMPRESSION: 1. No evidence of bowel obstruction. 2. Unchanged large ventral hernia containing most of the large and small bowel. Report Dictated on Electronically Signed By: Dilip Holliday MD Electronically Signed Date/Time: 11/13/2023 11:16 AM EST [facility] Radiology Study observation (narrative) [facility] CT Abdomen WO contrastOrdere d By: Dilip Holliday on 11-13-2023 [facility] [employer] Work Phone: Hepatic function 2000 panelo n 11-13-2023 Albumin [Mass/Vol] 4.0 g/dL 3.5 - 5.0 g/dL [facility] ALP [Catalytic activity/Vol] 38 U/L 38 - 126 U/L [facility] ALT [Catalytic activity/Vol] 20 U/L 0 - 34 U/L [facility] AST [Catalytic activity/Vol] 19 U/L 15 - 46 U/L [facility] Bilirubin [Mass/Vol] 0.2 mg/dL 0.2 - 1 .3 mg/dL [facility] Bilirubin.conjugated [Mass/Vol] 0.0 mg/dL 0.0 - 0.3 mg/dL [facility] Protein [Mass/Vol] 6.5 g/dL 6.3 - 8.2 g/dL [facility] Lactic acid with reflexon Interpretation and review of laboratory results Normal [facility] Lactate [Moles/Vol] 1.1 mmol/L 0.7 - 2. 0 mmol/L [facility] Lipaseon 11-13-2023 Lipase [Catalytic activity/Vol] 221 U/L 23 - 300 U/L [facility] No Panel Informationon 11-13 Interpretation and review of laboratory results Normal [facility] Quantitative hCGon HCG.beta subunit Qn Females <=5 mIU/mL [facility] Values in should double every 2 to 3 days for the first 6 weeks. Elevated concentrations of human chorionic gonadotropin (hCG) measured in the first trimester of are observed in normal , but may serve as an indication of chorionic carcinoma, hydatiform mole, or multiple . Decreasing hCG concentrations indicate threatened or missed , recent termination of , ectopic , gestosis or intrauterine . Yanelis- and postmenopausal females may have detectable hCG concentrations (< or = to 14 mIU/mL) due to pituitary production of hCG. Serum follicle-stimulating hormone measurement may aid in ruling-out in this population. Cutoffs of greater than 20 to 45 mIU/mL have been suggested and are method dependent. False-elevations (called phantom human chorionic gonadotropin: hCG) may occur with patients who have human antianimal or heterophilic antibodies. Some specimens may not dilute linearly due to abnormal forms of hCG. Elevated hCG concentrations not associated with are found in patients with other diseases such as tumors of the germ cells, ovaries, bladder, pancreas, stomach, lungs, and liver. This test is not intended to detect or monitor tumors or gestational trophoblastic disease. [facility] Urinalysis complete panel (U )on 11-13-2023 Bilirubin Ql (U) Negative Negative mg/dL [facility] Clarity (U) Clear Clear [facility] Color (U) Light Yellow Lt. Yellow [facility] Glucose Ql (U) Normal Normal (<70) mg/dL [facility] Hemoglobin Ql (U) Negative Negative mg/dL [facility] Interpretation and review of laboratory results Normal [facility] Ketones (U) [Mass/Vol] Negative Negative mg/dL [facility] Leukocyte esterase Test strip Ql (U) Negative Negative Peace/uL [facility] Nitrite Ql (U) Negative Negative [facility] pH (U) 5.5 [pH] 5.0 - 8.0 pH [facility] Protein (U) [Mass/Vol] Negative Negative mg/dL [facility] Specific gravity (U) [Rel density] 1.024 1.005 - 1.030 [facility] Urobilinogen (U) [Mass/Vol] Normal Normal (0-1) mg/dL [facility] CBC W Auto Differential pane l (Bld)Ordered By: Barbi Eli on 10-20-2023 Basophils (Bld) [#/Vol] 0.0 10*3/uL 0.0 - 0.2 10*3/uL [facility] Basophils/100 WBC (Bld) 0.3 % 0.0 - 2.0 % [facility] Eosinophils (Bld) [#/Vol] 0.2 10*3/uL 0.0 - 0.5 10*3/uL [facility] Eosinophils/100 WBC (Bld) 2.4 % 1.0 - 6.0 % [facility] Erythrocyte distribution width (RBC) [Ratio] 13.6 % 11.5 - 14.5 % [facility] Hematocrit (Bld) [Volume fraction] 36.8 % 35.0 - 47.0 % [facility] Hemoglobin (Bld) [Mass/Vol] 12.5 g/dL 11.7 - 16.0 g/dL [facility] Interpretation and review of laboratory results Abnormal [facility] Lymphocytes (Bld) [#/Vol] 1.9 10*3/uL 1.0 - 4.3 10*3/uL [facility] Lymphocytes/100 WBC (Bld) 25.8 % 20.0 - 40.0 % [facility] MCH (RBC) [Entitic mass] 31.7 pg 26.0 - 34.0 pg [facility] MCHC (RBC) [Mass/Vol] 34.0 % 32.0 - 36.0 % [facility] MCV (RBC) [Entitic vol] 93.1 fL 80.0 - 98.0 fL [facility] Monocytes (Bld) [#/Vol] 0.4 10*3/uL 0.0 - 0.8 10*3/uL [facility] Monocytes/100 WBC (Bld) 5.5 % 2.0 - 10.0 % [facility] Neutrophils (Bld) [#/Vol] 4.9 10*3/uL 1.8 - 7.0 10*3/uL [facility] Neutrophils/100 WBC (Bld) 66.0 % 40.0 - 80.0 % [facility] Nucleated RBC/100 WBC (Bld) [Ratio] 0.0 % [facility] Platelet mean volume (Bld) [Entitic vol] 7.1 fL Low 7.4 - 12.4 fL [facility] Platelets (Bld) [#/Vol] 232 10*3/uL 140 - 440 10*3/uL [facility] RBC (Bld) [#/Vol] 3.96 10*6/uL 3.8 - 5.20 10*6/uL [facility] WBC (Bld) [#/Vol] 7.5 10*3/uL 3.6 - 10.7 10*3/uL [facility] Comprehensive metabolic 1998 panelon 10-20-2023 Albumin [Mass/Vol] 3.6 g/dL 3.5 - 5.0 g/dL [facility] ALP [Catalytic activity/Vol] 39 U/L 38 - 126 U/L [facility] ALT [Catalytic activity/Vol] 24 U/L 0 - 34 U/L [facility] Anion gap [Moles/Vol] 9 mmol/L 3 - 13 mmol/L [facility] AST [Catalytic activity/Vol] 24 U/L 15 - 46 U/L [facility] Bilirubin [Mass/Vol] 0.5 mg/dL 0.2 - 1 .3 mg/dL [facility] Calcium [Mass/Vol] 8.4 mg/dL 8.4 - 10. 4 mg/dL [facility] Chloride [Moles/Vol] 105 mmol/L 98 - 10 7 mmol/L [facility] CO2 [Moles/Vol] 24 mmol/L 22 - 30 mmol/L [facility] Creatinine [Mass/Vol] 0.45 mg/dL Low 0.52 - 1.04 mg/dL [facility] GFR/1.73 sq M.predicted MDRD (S/P/Bld) [Vol rate/Area] - PINF [facility] Comment on above: Calculation based on the Chronic Kidney Disease Epidemiology Collaboration (CKD-EPI) equation refit without adjustment for race Glucose [Mass/Vol] 97 mg/dL 70 - 100 mg/dL [facility] Interpretation and review of laboratory results Abnormal [facility] Potassium [Moles/Vol] 4.1 mmol/L 3.5 - 5.1 mmol/L [facility] Protein [Mass/Vol] 6.0 g/dL Low 6.3 - 8.2 g/dL [facility] Sodium [Moles/Vol] 138 mmol/L 135 - 145 mmol/L [facility] Urea nitrogen [Mass/Vol] 9 mg/dL 7 - 17 mg/dL [facility] Basic metabolic 1998 panelon 10-19-2023 Anion gap [Moles/Vol] 8 mmol/L 3 - 13 mmol/L [facility] Calcium [Mass/Vol] 8.8 mg/dL 8.4 - 10. 4 mg/dL [facility] Chloride [Moles/Vol] 106 mmol/L 98 - 10 7 mmol/L [facility] CO2 [Moles/Vol] 21 mmol/L Low 22 - 30 mmol/L [facility] [facility] Creatinine [Mass/Vol] 0.42 mg/dL Low 0.52 - 1.04 mg/dL [facility] GFR/1.73 sq M.predicted MDRD (S/P/Bld) [Vol rate/Area] - PINF [facility] Comment on above: Calculation based on the Chronic Kidney Disease Epidemiology Collaboration (CKD-EPI) equation refit without adjustment for race Glucose [Mass/Vol] 98 mg/dL 70 - 100 mg/dL [facility] Potassium [Moles/Vol] 5.0 mmol/L 3.5 - 5.1 mmol/L [facility] Sodium [Moles/Vol] 135 mmol/L 135 - 145 mmol/L [facility] Urea nitrogen [Mass/Vol] 10 mg/dL 7 - 17 mg/dL [facility] CBC W Auto Differential pane l (Bld)Ordered By: Fady Rivas on 10-19-2023 Basophils (Bld) [#/Vol] 0.0 10*3/uL 0.0 - 0.2 10*3/uL [facility] Basophils/100 WBC (Bld) 0.2 % 0.0 - 2.0 % [facility] Eosinophils (Bld) [#/Vol] 0.2 10*3/uL 0.0 - 0.5 10*3/uL [facility] Eosinophils/100 WBC (Bld) 2.1 % 1.0 - 6.0 % [facility] Erythrocyte distribution width (RBC) [Ratio] 12.9 % 11.5 - 14.5 % [facility] Hematocrit (Bld) [Volume fraction] 40.0 % 35.0 - 47.0 % [facility] [employer] Hemoglobin (Bld) [Mass/Vol] 13.2 g/dL 11.7 - 16.0 g/dL [facility] [employer] Immature granulocytes (Bld) [#/Vol] 0.1 10*3/uL High NINF - 0.0 10*3/uL [facility] [employer] Immature granulocytes/100 WBC (Bld) 0.6 % High NINF - 0.0 % [facility] [employer] Interpretation and review of laboratory results Abnormal [facility] [employer] Lymphocytes (Bld) [#/Vol] 1.4 10*3/uL 1.0 - 4.3 10*3/uL [facility] [employer] Lymphocytes/100 WBC (Bld) 17.5 % Low 20.0 - 40.0 % [facility] [employer] MCH (RBC) [Entitic mass] 30.7 pg 26.0 - 34.0 pg [facility] [employer] MCHC (RBC) [Mass/Vol] 33.0 % 32.0 - 36.0 % [facility] [employer] MCV (RBC) [Entitic vol] 93.0 fL 80.0 - 98.0 fL [facility] [employer] Monocytes (Bld) [#/Vol] 0.3 10*3/uL 0.0 - 0.8 10*3/uL [facility] [employer] Monocytes/100 WBC (Bld) 4.0 % 2.0 - 10.0 % [facility] [employer] Neutrophils (Bld) [#/Vol] 6.2 10*3/uL 1.8 - 7.0 10*3/uL [facility] [employer] Neutrophils/100 WBC (Bld) 75.6 % 40.0 - 80.0 % [facility] [employer] Platelet mean volume (Bld) [Entitic vol] 8.9 fL 7.4 - 12.4 fL [facility] [employer] Comment on above: MPV is a calculated measurement using platelet volume ratio Platelets (Bld) [#/Vol] 247 10*3/uL 140 - 440 10*3/uL [facility] [employer] RBC (Bld) [#/Vol] 4.30 10*6/uL 3.8 - 5.20 10*6/uL [facility] [employer] WBC (Bld) [#/Vol] 8.2 10*3/uL 3.6 - 10.7 10*3/uL [facility] [employer] [facility] [employer] CT Abdomen WO contraston Large ventral abdominal wall hernia containing multiple loops of small bowel and large bowel with changes of possible early obstruction. There is partial intussusception of the fatty mesentery along the wall of a loop of jejunum in the left upper quadrant. Lack of GI contrast limits overall evaluation of bowel loops. Surgical consultation is recommended. Report Dictated on Electronically Signed By: Michelle Velazquez MD Electronically Signed Date/Time: 10/19/2023 11:56 AM EST [employer] Patient Name: MEL WALL : 1985 Exam Date/Time: 10/19/2023 11:42 Procedure: CT ABDOMEN PELVIS WO IV CONTRAST Ordering Provider: LIM NICHOLAS Reason For Exam: Bowel obstruction suspected CT ABDOMEN AND PELVIS Indication: 38-year-old; bowel obstruction Scan Parameters: Multiple axial CT images were obtained of the abdomen and pelvis. Coronal and sagittal reconstructions were reviewed as well. ALARA protocol. Dose reduction was employed with automated exposure control. Contrast: No IV and no oral contrast Comparison: 09/13/2023 FINDINGS: The lung bases are clear. The heart is not enlarged. The aorta contour is within normal limits. The osseous structures are intact. The gallbladder is surgically absent. The liver, pancreas, spleen, and adrenal glands are within normal limits. There is no hydronephrosis. Bilateral renal cysts are redemonstrated. The bladder contour is normal. The uterus is anteverted. Clips are present at the level of the right and left fallopian tubes. There is a large ventral hernia containing the transverse colon, ascending colon, cecum, and multiple loops of decompressed small bowel. There are postsurgical changes of bowel loops noted within this hernia. The appendix is not clearly identified. There are postsurgical changes of the duodenum with a diverticulum present. The hernia neck measures approximately 12 cm on lateral imaging. There is partial intussusception of the fatty mesentery within a loop of jejunum wall in the left upper quadrant for instance coronal image 47 and axial image 68. There are narrowing of small bowel loops entering the hernia. [facility] [employer] Michelle Velazquez MD - 10/19/2023 Patient Name: MEL WALL : 1985 [facility]#: [id number] Exam Date/Time: 10/19/2023 11:42 Procedure: CT ABDOMEN PELVIS WO IV CONTRAST Ordering Provider: LIM NICHOLAS Reason For Exam: Bowel obstruction suspected CT ABDOMEN AND PELVIS Indication: 38-year-old; bowel obstruction Scan Parameters: Multiple axial CT images were obtained of the abdomen and pelvis. Coronal and sagittal reconstructions were reviewed as well. ALARA protocol. Dose reduction was employed with automated exposure control. Contrast: No IV and no oral contrast Comparison: 09/13/2023 FINDINGS: The lung bases are clear. The heart is not enlarged. The aorta contour is within normal limits. The osseous structures are intact. The gallbladder is surgically absent. The liver, pancreas, spleen, and adrenal glands are within normal limits. There is no hydronephrosis. Bilateral renal cysts are redemonstrated. The bladder contour is normal. The uterus is anteverted. Clips are present at the level of the right and left fallopian tubes. There is a large ventral hernia containing the transverse colon, ascending colon, cecum, and multiple loops of decompressed small bowel. There are postsurgical changes of bowel loops noted within this hernia. The appendix is not clearly identified. There are postsurgical changes of the duodenum with a diverticulum present. The hernia neck measures approximately 12 cm on lateral imaging. There is partial intussusception of the fatty mesentery within a loop of jejunum wall in the left upper quadrant for instance coronal image 47 and axial image 68. There are narrowing of small bowel loops entering the hernia. IMPRESSION: Large ventral abdominal wall hernia containing multiple loops of small bowel and large bowel with changes of possible early obstruction. There is partial intussusception of the fatty mesentery along the wall of a loop of jejunum in the left upper quadrant. Lack of GI contrast limits overall evaluation of bowel loops. Surgical consultation is recommended. Report Dictated on Electronically Signed By: Michelle Velazquez MD Electronically Signed Date/Time: 10/19/2023 11:56 AM EST [facility] Radiology Study observation (narrative) [facility] CT Abdomen WO contrastOrdere d By: Michelle Velazquez on 10-19-2023 [facility] Work Phone: Hepatic function 2000 panelo n 10-19-2023 Albumin [Mass/Vol] 4.3 g/dL 3.5 - 5.0 g/dL [facility] ALP [Catalytic activity/Vol] 31 U/L Low 38 - 126 U/L [facility] ALT [Catalytic activity/Vol] 27 U/L 0 - 34 U/L [facility] AST [Catalytic activity/Vol] 33 U/L 15 - 46 U/L [facility] Bilirubin [Mass/Vol] 0.7 mg/dL 0.2 - 1 .3 mg/dL [facility] Bilirubin.conjugated [Mass/Vol] 0.0 mg/dL 0.0 - 0.3 mg/dL [facility] Protein [Mass/Vol] 7.3 g/dL 6.3 - 8.2 g/dL [facility] Laboratory - Chemistry and C hemistry - challengeon 10-19-2023 Lipase [Catalytic activity/Vol] 63 U/L 23 - 300 U/L [facility] Beta HCG ( test) Ql Negative Negative [facility] Comment on above: Please note: Very di lute urine specimens, as indicated by a low specific gravity, may not contain loan representative levels of hCG. If is still suspected, a first morning urine specimen should be collected 48 hours later and tested. Beta HCG ( test) Ql (U) is the most common reason for HCG in urine, although choriocarcinoma, hydatidiform mole, and certain nontrophoblastic malignancies also result in detectable urinary HCG levels. Sensitivity = 20mIU/mL. [facility] Lipase [Catalytic activity/V ol]on 10-19-2023 Interpretation and review of laboratory results Normal [facility] No Panel Informationon 10-19 Interpretation and review of laboratory results Abnormal [facility] Urinalysis complete panel (U )on 10-19-2023 Bacteria LM.HPF (Urine sed) [#/Area] Moderate Abnormal Negative /HPF [facility] Bilirubin Ql (U) Negative Negative mg/dL [facility] Clarity (U) Turbid Abnormal Clear [facility] Color (U) Colorless Lt. Yellow [facility] Epithelial cells.squamous LM.HPF (Urine sed) [#/Area] 11-25 Abnormal [facility] Glucose Ql (U) Normal Normal (<70) mg/dL [facility] Hemoglobin Ql (U) Negative Negative mg/dL [facility] Interpretation and review of laboratory results Abnormal [facility] Ketones (U) [Mass/Vol] Negative Negative mg/dL [facility] Leukocyte esterase Test strip Ql (U) Negative Negative [place]/uL [facility] Nitrite Ql (U) Negative Negative [facility] pH (U) 7.0 [pH] 5.0 - 8.0 pH [facility] Protein (U) [Mass/Vol] Negative Negative mg/dL [facility] RBC LM.HPF (Urine sed) [#/Area] Negative [facility] Specific gravity (U) [Rel density] 1.006 1.005 - 1.030 [facility] Urobilinogen (U) [Mass/Vol] Normal Normal (0-1) mg/dL [facility] Volume, Urine 12 mL [facility] WBC LM.HPF (Urine sed) [#/Area] 0-2 [facility] CNOVon 10-17-2023 CNOV Office Visit (UCWSTR ) MEL WALL ([id number]) 1985 [facility] Date Time Provider Department 10/17/23 6:45 PM SCOT [facility] During your visit today, we recorded the following information about you: Temperature Pulse Respiration Blood pressure 98.9 degrees 119/minute 21/minute 140/84 Weight 117.4 kg Scot Nur MD 10/17/2023 7:12 PM Signed Patient presents with: Mass: Hernia on abdomen x 2 years, nausea, vomiting x 2 days HPI: Hernia pain: Duration: started yesterday Location: chronic ventral abdominal hernia Character: aggravated. Does not feel like prior strangulation Aggravating: discomfort started after vomiting Relieving: phenergan suppository Pain relievers: Associated: nausea, vomiting, diarrhea, household has gastroenteritis Pertinent negatives: Denies blood in stool/emesis, fever, MEDICATIONS: busPIRone HCl 30 mg tablet Take 1 tablet by mouth two times a day. FLUoxetine (PROZAC) 20 mg capsule Take 1 capsule by mouth once daily. Take with 2 capsules of the 40 mg dose. FLUoxetine (PROZAC) 40 mg capsule Take 2 capsules by mouth once daily. Take with 20 mg dose. guanFACINE (INTUNIV) 1 mg ER 24 hr tablet(s) Take 1 tablet by mouth daily at bedtime. ALLERGIES: ALLERGIES Allergen Reactions Toradol [Ketorolac] Hives, Shortness of Breath Zofran [Ondansetron* Hives, Shortness of Breath VITALS: BP 140/84 Pulse 119 Temp 37.2 ?C (98.9 ?F) Resp 21 Wt 117.4 kg (258 lb 12.8 oz) LMP 05/27/2021 SpO2 96% BMI 43.07 kg/m? PHYSICAL EXAM: GEN: pleasant, no acute distress, alert HEENT: PERRL, EOMI, MMM NECK: supple, HEART: regular rate, regular rhythm, during my exam, no murmurs LUNGS: clear to auscultation, no wheezes or crackles, no increased WOB ABD: Audible borborygmi, volleyball sized mid right lower hernia which is tender to palpation but soft and without erythema. ASSESSMENT/PLAN: 1. Gastroenteritis - ICD9: 558.9, ICD10: K52.9 (primary diagnosis) 2. Ventral hernia without obstruction or gangrene - ICD9: 553.20, ICD10: K43.9 3. Nausea - ICD9: 787.02, ICD10: R11.0 Infectious gastroenteritis. - PROMETHAZINE 25 MG RECTAL SUPPOSITORY Probably increased hernia discomfort from mechanical retching. She is aware strangulation cannot be ruled out by exam here. Follow up in the ER with signs of strangulation or dehydration, increasing abdominal pain, high fever, or blood in vomit or stool. Scot Nur MD Allergies As of Date: 10/17/2023 Noted Allergy Reaction TORADOL (KETOROLAC) 07/24/2013 4 - Hives 12 - Shortness of Breath ZOFRAN (ONDANSETRON HCL (PF)) 07/24/2013 4 - Hives 12 - Shortness of Breath Date Reviewed: 10/17/2023 Reviewed by: Chasity Quan MA - Fully Assessed Reason for Visit: Mass [64] Cmt: Hernia on abdomen x 2 years, nausea, vomiting x 2 days Primary Visit Diagnosis:Gastroenteritis [K52.9] Other Visit Diagnoses:Ventral hernia without obstruction or gangrene [K43.9] Nausea [R11.0] Order(s):promethazine (PHENERGAN) 25 mg suppository1 Suppository by RECTAL route every 6 hours as needed.Disp: 12 SuppositoryRfl: 2 Prescriptions as of 10/17/2023 - promethazine (PHENERGAN) 25 mg suppository 1 Suppository by RECTAL route every 6 hours as needed. - busPIRone HCl 30 mg tablet Take 1 tablet by mouth two times a day. - FLUoxetine (PROZAC) 20 mg capsule Take 1 capsule by mouth once daily. Take with 2 capsules of the 40 mg dose. - FLUoxetine (PROZAC) 40 mg capsule Take 2 capsules by mouth once daily. Take with 20 mg dose. - guanFACINE (INTUNIV) 1 mg ER 24 hr tablet(s) Take 1 tablet by mouth daily at bedtime. Problem List As Of Date 10/17/2023 Noted Resolved Abdominal wall mass of left lower quadrant [R19*07/24/2013 Bipolar 1 disorder [F31.9] Depression [F32.A] Anxiety [F41.9] Routine gynecological examination [Z01.419] Headache(784.0) [R51] 10/18/2013 Panic disorder with agoraphobia [F40.01] 11/05/2014 Social phobia [F40.10] 11/05/2014 Obesity, Class III, BMI 40-49.9 (morbid obesity*01/24/2018 Abdominal pain [R10.9] 06/10/2019 06/11/2019 Omental infarction (HCC) [K55.069] 07/10/2019 Chronic pain syndrome [G89.4] 08/06/2019 Ventral hernia [K43.9] 12/21/2019 Recurrent ventral hernia [K43.2] 01/24/2020 Mixed obsessional thoughts and acts [F42.2] 05/31/2022 Recurrent major depressive disorder, in partial*05/31/2022 Chronic post-traumatic stress disorder (PTSD) [*05/31/2022 Bowel obstruction (HCC) [K56.609] 03/09/2023 03/09/2023 Ventral hernia without obstruction or gangrene *03/10/2023 Prescriptions ordered this encounter Disp Refills Start End PROMETHAZINE 25 MG RECTAL SUPPOSITORY 12 S* 2 10/17/2023 Route: RECTAL Si Suppository by RECTAL route every 6 hours as needed. Letter Text Encounter Status:Closed by SCOT NUR on 10/17/23 Normal [facility] Laboratory - Chemistry and C hemistry - challengeon 09-14-2023 Lipase [Catalytic activity/Vol] 45 U/L 23 - 300 U/L [facility] [employer] Lipase [Catalytic activity/V ol]on 09-14-2023 Interpretation and review of laboratory results Normal [facility] [employer] XR Abdomen Single viewon Nonobstructive bowel gas pattern. Report Dictated on Electronically Signed By: Chad Burgos MD Electronically Signed Date/Time: 09/14/2023 9:54 AM EST [facility] [employer] Patient Name: MEL WALL : 1985 Exam Date/Time: 09/14/2023 08:52 Procedure: XR ABDOMEN 1 VIEW Ordering Provider: CONNER DANIEL Reason For Exam: possible sbo SUPINE ABDOMEN (KUB) CLINICAL INDICATION: Abdominal pain A supine plain film of the abdomen was obtained. COMPARISON: CT abdomen and pelvis dated 09/13/2023 FINDINGS: The bowel demonstrates a normal gas pattern. Free air under the diaphragm cannot be adequately assessed on this single, supine view. Upright or decubitus films may be obtained if clinically warranted. No pathologic calcifications are identified. Visualized bony structures are grossly unremarkable. Tubal ligation clips are noted. [facility] Chad Burgos MD - 09/14/2023 Patient Name: MEL WALL : 1985 Exam Date/Time: 09/14/2023 08:52 Procedure: XR ABDOMEN 1 VIEW Ordering Provider: CONNER DANIEL Reason For Exam: possible sbo SUPINE ABDOMEN (KUB) CLINICAL INDICATION: Abdominal pain A supine plain film of the abdomen was obtained. COMPARISON: CT abdomen and pelvis dated 09/13/2023 FINDINGS: The bowel demonstrates a normal gas pattern. Free air under the diaphragm cannot be adequately assessed on this single, supine view. Upright or decubitus films may be obtained if clinically warranted. No pathologic calcifications are identified. Visualized bony structures are grossly unremarkable. Tubal ligation clips are noted. IMPRESSION: Nonobstructive bowel gas pattern. Report Dictated on Electronically Signed By: hCad Burgos MD Electronically Signed Date/Time: 09/14/2023 9:54 AM EST [facility] Radiology Study observation (narrative) [facility] XR Abdomen Single viewOrdere d By: Chad Burgos on 09-14-2023 [employer] CBC W Auto Differential pane l (Bld)on 09-13-2023 Basophils (Bld) [#/Vol] 0.0 10*3/uL 0.0 - 0.2 10*3/uL [facility] [facility] [employer] Basophils/100 WBC (Bld) 0.3 % 0.0 - 2.0 % [facility] [facility] [employer] Eosinophils (Bld) [#/Vol] 0.2 10*3/uL 0.0 - 0.5 10*3/uL [facility] [facility] [employer] Eosinophils/100 WBC (Bld) 1.6 % 1.0 - 6.0 % [facility] [facility] [employer] Erythrocyte distribution width (RBC) [Ratio] 12.5 % 11.5 - 14.5 % [employer] [facility] [employer] Hematocrit (Bld) [Volume fraction] 42.8 % 35.0 - 47.0 % [facility] [facility] [employer] Hemoglobin (Bld) [Mass/Vol] 14.1 g/dL 11.7 - 16.0 g/dL [facility] [facility] [employer] Immature granulocytes (Bld) [#/Vol] 0.0 10*3/uL NINF - 0.0 10*3/uL [facility] [facility] [employer] Immature granulocytes/100 WBC (Bld) 0.3 % High NINF - 0.0 % [facility] [employer] Interpretation and review of laboratory results Abnormal [employer] Lymphocytes (Bld) [#/Vol] 2.0 10*3/uL 1.0 - 4.3 10*3/uL [employer] Lymphocytes/100 WBC (Bld) 19.5 % Low 20.0 - 40.0 % [facility] MCH (RBC) [Entitic mass] 31.4 pg 26.0 - 34.0 pg [facility] MCHC (RBC) [Mass/Vol] 32.9 % 32.0 - 36.0 % [facility] MCV (RBC) [Entitic vol] 95.3 fL 80.0 - 98.0 fL [facility] Monocytes (Bld) [#/Vol] 0.5 10*3/uL 0.0 - 0.8 10*3/uL [facility] Monocytes/100 WBC (Bld) 4.5 % 2.0 - 10.0 % [facility] Neutrophils (Bld) [#/Vol] 7.5 10*3/uL High 1.8 - 7.0 10*3/uL [facility] Neutrophils/100 WBC (Bld) 73.8 % 40.0 - 80.0 % [facility] Platelet mean volume (Bld) [Entitic vol] 8.7 fL 7.4 - 12.4 fL [facility] Comment on above: MPV is a calculated measurement using platelet volume ratio Platelets (Bld) [#/Vol] 308 10*3/uL 140 - 440 10*3/uL [facility] RBC (Bld) [#/Vol] 4.49 10*6/uL 3.8 - 5.20 10*6/uL [facility] WBC (Bld) [#/Vol] 10.2 10*3/uL 3.6 - 10.7 10*3/uL [facility] CT Abdomen and Pelvis W cont rast Oscar 09-13-2023 Large anterior abdominal wall hernia containing multiple loops of small bowel and colon. Dilated small bowel loop is indicative of early small bowel obstruction. Report Dictated on Electronically Signed By: Mehdi Barrett MD Electronically Signed Date/Time: 09/13/2023 1:36 PM [facility] Patient Name: MEL WALL : 1985 Exam Date/Time: 09/13/2023 13:21 Procedure: CT ABDOMEN PELVIS W CONTRAST Ordering Provider: HENDRIX JAMES Reason For Exam: Hernia, complicated CT abdomen and pelvis with contrast HISTORY: Hernia Protocol: 3 mm axial images with intravenous contrast Dose reduction was employed with automated exposure control. Large anterior abdominal wall hernia containing multiple loops of small bowel and colon. Dilated small bowel loop is indicative of early small bowel obstruction. The liver, spleen, pancreas, adrenals and kidney are normal. Small right renal cyst. Or free fluid. The bladder is unremarkable. [facility] Mehdi Barrett MD - 09/13/2023 [facility] 1985 [id number] Exam Date/Time: 09/13/2023 13:21 Procedure: CT ABDOMEN PELVIS W CONTRAST Ordering Provider: HENDRIX JAMES Reason For Exam: Hernia, complicated CT abdomen and pelvis with contrast HISTORY: Hernia Protocol: 3 mm axial images with intravenous contrast Dose reduction was employed with automated exposure control. Large anterior abdominal wall hernia containing multiple loops of small bowel and colon. Dilated small bowel loop is indicative of early small bowel obstruction. The liver, spleen, pancreas, adrenals and kidney are normal. Small right renal cyst. Or free fluid. The bladder is unremarkable. IMPRESSION: Large anterior abdominal wall hernia containing multiple loops of small bowel and colon. Dilated small bowel loop is indicative of early small bowel obstruction. Report Dictated on Electronically Signed By: Mehdi Barrett MD Electronically Signed Date/Time: 09/13/2023 1:36 PM EST [facility] Radiology Study observation (narrative) [facility] CT Abdomen and Pelvis W cont rast IVOrdered By: Mehdi Barrett on 09-13-2023 [facility] [employer] Work Phone: Comprehensive metabolic 1998 panelon 09-13-2023 Albumin [Mass/Vol] 4.5 g/dL 3.5 - 5.0 g/dL [facility] [employer] ALP [Catalytic activity/Vol] 46 U/L 38 - 126 U/L [facility] [employer] ALT [Catalytic activity/Vol] 17 U/L 0 - 34 U/L [facility] Anion gap [Moles/Vol] 7 mmol/L 3 - 13 mmol/L [facility] AST [Catalytic activity/Vol] 16 U/L 15 - 46 U/L [facility] Bilirubin [Mass/Vol] 0.3 mg/dL 0.2 - 1 .3 mg/dL [facility] Calcium [Mass/Vol] 8.7 mg/dL 8.4 - 10. 4 mg/dL [facility] Chloride [Moles/Vol] 105 mmol/L 98 - 10 7 mmol/L [facility] CO2 [Moles/Vol] 23 mmol/L 22 - 30 mmol/L [facility] Creatinine [Mass/Vol] 0.48 mg/dL Low 0.52 - 1.04 mg/dL [facility] GFR/1.73 sq M.predicted MDRD (S/P/Bld) [Vol rate/Area] - PINF [facility] Comment on above: Calculation based on the Chronic Kidney Disease Epidemiology Collaboration (CKD-EPI) equation refit without adjustment for race Glucose [Mass/Vol] 130 mg/dL High 70 - 100 mg/dL [facility] Potassium [Moles/Vol] 4.1 mmol/L 3.5 - 5.1 mmol/L [facility] Protein [Mass/Vol] 7.1 g/dL 6.3 - 8.2 g/dL [facility] [facility] Sodium [Moles/Vol] 135 mmol/L 135 - 145 mmol/L [facility] Urea nitrogen [Mass/Vol] 6 mg/dL Low 7 - 17 mg/dL [facility] Laboratory - Chemistry and C hemistry - challengeon 09-13-2023 Lactate [Moles/Vol] 1.5 mmol/L 0.7 - 2. 0 mmol/L [facility] Lipase [Catalytic activity/Vol] 368 U/L High 23 - 300 U/L [facility] Magnesium [Mass/Vol] 2.0 mg/dL 1.6 - 2 .3 mg/dL [facility] Laboratory - Chemistry and C hemistry - challengeOrdered By: Eulalia Padilla on 09-13-2023 Beta HCG ( test) Ql Negative Negative [facility] Comment on above: Please note: Very di lute urine specimens, as indicated by a low specific gravity, may not contain loan representative levels of hCG. If is still suspected, a first morning urine specimen should be collected 48 hours later and tested. Beta HCG ( test) Ql (U) is the most common reason for HCG in urine, although choriocarcinoma, hydatidiform mole, and certain nontrophoblastic malignancies also result in detectable urinary HCG levels. Sensitivity = 20mIU/mL. [facility] Magnesium [Mass/Vol]on 09-13 Interpretation and review of laboratory results Normal [facility] No Panel Informationon 09-13 Interpretation and review of laboratory results Normal [facility] Interpretation and review of laboratory results Abnormal [facility] No Panel InformationOrdered By: Eulalia Padilla on 09-13-2023 [facility] Urinalysis complete panel (U )Ordered By: Ara Gonsalves on 09-13-2023 Bilirubin Ql (U) Negative Negative mg/dL [facility] Clarity (U) Turbid Abnormal Clear [facility] Color (U) Yellow Lt. Yellow [facility] Glucose Ql (U) Normal Normal (<70) mg/dL [facility] Hemoglobin Ql (U) Negative Negative mg/dL [facility] Interpretation and review of laboratory results Abnormal [facility] Ketones (U) [Mass/Vol] Negative Negative mg/dL [facility] Leukocyte esterase Test strip Ql (U) Negative Negative Peace/uL [facility] Nitrite Ql (U) Negative Negative [facility] pH (U) 6.5 [pH] 5.0 - 8.0 pH [facility] Protein (U) [Mass/Vol] Negative Negative mg/dL [facility] Specific gravity (U) [Rel density] 1.014 1.005 - 1.030 [facility] Urobilinogen (U) [Mass/Vol] Normal Normal (0-1) mg/dL [facility] CBC,PLATELETSon 06-30-2023 Hematocrit (Bld) [Volume fraction] 37.4 % Normal 34.9-44.3 [facility] Comment on above: Performed By: #### G NICK HFP, LIPA, CHM6 #### [facility] (DEFAULT) [address] [address] Hemoglobin (Bld) [Mass/Vol] 12.1 g/dL Normal 11.4-15.2 [facility] Comment on above: Performed By: #### G NICK, HFP, LIPA, CHM6 #### [facility] (DEFAULT) [address] [place] [address] MCV (RBC) [Entitic vol] 94.7 fL Normal 79.6-97.7 [facility] Comment on above: Performed By: #### G NICK, HFP, LIPA, CHM6 #### [facility] (DEFAULT) [address] [place] [address] Mean Cell Hgb 30.6 pg Normal 25.9-33.9 [facility] Comment on above: Performed By: #### G NICK, HFP, LIPA, CHM6 #### [facility] (DEFAULT) [address] [place] [address] 61747 Mean Cell Hgb Conc 32.4 g/dL Normal 31.4-35.9 [facility] Comment on above: Performed By: #### G NICK, HFP, LIPA, CHM6 #### [facility] (DEFAULT) [address] [place] [address] Platelet mean volume (Bld) [Entitic vol] 9.5 fL Normal 8.5-12.2 [facility] Comment on above: Performed By: #### G NICK, HFP, LIPA, CHM6 #### [facility] (DEFAULT) [address] [place] [address] Platelets (Bld) [#/Vol] 217 10*3/uL Normal 150-393 [facility] Comment on above: Performed By: #### G NICK, HFP, LIPA, CHM6 #### [facility] (DEFAULT) [address] [place] [address] RBC (Bld) [#/Vol] 3.95 10*6/uL Normal 3.91-5.04 [facility] Comment on above: Performed By: #### G NICK, HFP, LIPA, CHM6 #### [facility] (DEFAULT) [address] [place] [address]3900 RBC Distribution 12.1 % Normal 10.8-14.9 [facility] Comment on above: Performed By: #### G NICK, HFP, LIPA, CHM6 #### [facility] (DEFAULT) [address] [place] [address]054 WBC (Bld) [#/Vol] 5.81 10*3/uL Normal 3.99-11.19 [facility] Comment on above: Performed By: #### G NICK, HFP, LIPA, CHM6 #### [facility] (DEFAULT) [address] [place] [address] Erythrocyte distribution width (RBC) [Ratio] 12.1 % 10.8 - 14.9 % [facility] Hematocrit (Bld) [Volume fraction] 37.4 % 34.9 - 44.3 % [facility] Hemoglobin (Bld) [Mass/Vol] 12.1 g/dL 11.4 - 15.2 g/dL [facility] Interpretation and review of laboratory results Normal [facility] MCH (RBC) [Entitic mass] 30.6 pg 25.9 - 33.9 pg [facility] MCHC (RBC) [Mass/Vol] 32.4 g/dL 31.4 - 35.9 g/dL [facility] MCV (RBC) [Entitic vol] 94.7 fL 79.6 - 97.7 fL [facility] Platelet mean volume (Bld) [Entitic vol] 9.5 fL 8.5 - 12.2 fL [facility] Platelets (Bld) [#/Vol] 217 10*3/uL 150 - 393 K/uL [facility] RBC (Bld) [#/Vol] 3.95 10*6/uL [facility] WBC (Bld) [#/Vol] 5.81 10*3/uL 3.99 - 11.19 K/uL [facility] CHEM 7 (LYTES,BUN,CREA,GLUC) on 06-30-2023 Anion gap [Moles/Vol] 11 mmol/L Normal 7-17 [facility] Comment on above: Performed By: #### G NICK, HFP, LIPA, CHM6 #### [facility] (DEFAULT) [address] [place] [address] Chloride [Moles/Vol] 108 mmol/L Normal 98-108 [facility] Comment on above: Performed By: #### G NICK, HFP, LIPA, CHM6 #### [facility] (DEFAULT) [address] [place] [address] CO2 [Moles/Vol] 21 mmol/L Normal 21-31 [facility] Comment on above: Performed By: #### G NICK, HFP, LIPA, CHM6 #### [facility] (DEFAULT) [address] [place] [address] Creatinine [Mass/Vol] 0.47 mg/dL Low 0.50-1.20 [facility] Comment on above: Performed By: #### G NICK, HFP, LIPA, CHM6 #### [facility] (DEFAULT) [address] [place] [address] 12572 eGFR, CKD-EPI, Female > Normal >=60 [facility] Comment on above: Result Comment: Repo rted eGFR is based on the CKD-EPI 2020 equation using creatinine, age, and sex. Performed By: #### G NICK, HFP, LIPA, CHM6 #### [facility] (DEFAULT) [address] [place] [address] Glucose [Mass/Vol] 89 mg/dL Normal 70-99 [facility] Comment on above: Performed By: #### G NICK, HFP, LIPA, CHM6 #### [facility] (DEFAULT) [address] [place] [address] Osmolality [Osmolality] 282 mosm/kg Normal 278-305 [facility] Comment on above: Performed By: #### G NICK, HFP, LIPA, CHM6 #### [facility] (DEFAULT) [address] [place] [address] Potassium [Moles/Vol] 4.3 mmol/L Normal 3.5-5.0 [facility] Comment on above: Performed By: #### G NICK, HFP, LIPA, CHM6 #### [facility] (DEFAULT) [address] [place] [address] Sodium [Moles/Vol] 136 mmol/L Normal 135-145 [facility] Comment on above: Performed By: #### G NICK, HFP, LIPA, CHM6 #### [facility] (DEFAULT) [address] [place] [address] Urea nitrogen [Mass/Vol] 4 mg/dL Low 7-25 [facility] Comment on above: Performed By: #### G NICK, HFP, LIPA, CHM6 #### [facility] (DEFAULT) [address] [place] [address] Urea nitrogen/Creatinine [Mass ratio] 9 mg/mg Normal [facility] Comment on above: Performed By: #### G NICK, HFP, LIPA, CHM6 #### [facility] (DEFAULT) [address] [place] [address] Anion gap [Moles/Vol] 11 mmol/L 7 - 17 mmol/L [facility] Chloride [Moles/Vol] 108 mmol/L 98 - 10 8 mmol/L [facility] CO2 [Moles/Vol] 21 mmol/L 21 - 31 mmol/L [facility] Creatinine [Mass/Vol] 0.47 mg/dL Low 0.50 - 1.20 mg/dL [facility] GFR/1.73 sq M.predicted CKD-EPI (S/P/Bld) [Vol rate/Area] - PINF [facility] Comment on above: Reported eGFR is bas ed on the CKD-EPI 2020 equation using creatinine, age, and sex. Glucose [Mass/Vol] 89 mg/dL 70 - 99 mg/dL [facility] Interpretation and review of laboratory results Abnormal [facility] Osmolality Calc [Osmolality] 282 [facility] Potassium [Moles/Vol] 4.3 mmol/L 3.5 - 5.0 mmol/L [facility] Sodium [Moles/Vol] 136 mmol/L 135 - 145 mmol/L [facility] Urea nitrogen [Mass/Vol] 4 mg/dL Low 7 - 25 mg/dL [facility] Urea nitrogen/Creatinine [Mass ratio] 9 mg/mg [facility] MAGNESIUMon 06-30-2023 Magnesium [Mass/Vol] 1.7 mg/dL Normal 1.6-2.6 [facility] Comment on above: Performed By: #### C HM7, MGO, IPB #### [facility] (DEFAULT) [address] [place] [address] Magnesium [Mass/Vol] 1.7 mg/dL 1.6 - 2 .6 mg/dL [facility] No Panel Informationon 06-30 Interpretation and review of laboratory results Normal [facility] PHOSPHATE, INORGANICon 06-30 Phosphorous 3.3 mg/dL Normal 2.2-4.6 [facility] Comment on above: Performed By: #### G NICK, HFP, LIPA, CHM6 #### [facility] (DEFAULT) [address] [place] [address] Phosphate [Mass/Vol] 3.3 mg/dL 2.2 - 4 .6 mg/dL [facility] CBC,PLATELETSon 06-29-2023 Hematocrit (Bld) [Volume fraction] 37.1 % Normal 34.9-44.3 [facility] Comment on above: Performed By: #### H [facility] #### [facility] (DEFAULT) [address] [place] [address] Hemoglobin (Bld) [Mass/Vol] 11.9 g/dL Normal 11.4-15.2 [facility] Comment on above: Performed By: #### H EMOGC #### [facility] (DEFAULT) [address] [place] [address] 11979 MCV (RBC) [Entitic vol] 96.6 fL Normal 79.6-97.7 [facility] Comment on above: Performed By: #### H EMOGC #### [facility] (DEFAULT) [address] [address] Mean Cell Hgb 31.0 pg Normal 25.9-33.9 [facility] Comment on above: Performed By: #### H EMOGC #### [facility] (DEFAULT) [address] [address] Mean Cell Hgb Conc 32.1 g/dL Normal 31.4-35.9 [facility] Comment on above: Performed By: #### H EMOGC #### [facility] (DEFAULT) [address] [address] Platelet mean volume (Bld) [Entitic vol] 9.3 fL Normal 8.5-12.2 [facility] Comment on above: Performed By: #### H EMOGC #### [facility] (DEFAULT) [address] [address] Platelets (Bld) [#/Vol] 198 10*3/uL Normal 150-393 [facility] Comment on above: Performed By: #### H EMOGC #### [facility] (DEFAULT) [address] [address] RBC (Bld) [#/Vol] 3.84 10*6/uL Low 3.91-5.04 [facility] Comment on above: Performed By: #### H EMOGC #### [facility] (DEFAULT) [address] [address] RBC Distribution 12.2 % Normal 10.8-14.9 [facility] Comment on above: Performed By: #### H EMOGC #### [facility] (DEFAULT) [address] [address] WBC (Bld) [#/Vol] 4.94 10*3/uL Normal 3.99-11.19 [facility] Comment on above: Performed By: #### H EMOGC #### [facility] (DEFAULT) [address] [address] Erythrocyte distribution width (RBC) [Ratio] 12.2 % 10.8 - 14.9 % [facility] Hematocrit (Bld) [Volume fraction] 37.1 % 34.9 - 44.3 % [facility] Hemoglobin (Bld) [Mass/Vol] 11.9 g/dL 11.4 - 15.2 g/dL [facility] Interpretation and review of laboratory results Abnormal [facility] MCH (RBC) [Entitic mass] 31.0 pg 25.9 - 33.9 pg [facility] MCHC (RBC) [Mass/Vol] 32.1 g/dL 31.4 - 35.9 g/dL [facility] MCV (RBC) [Entitic vol] 96.6 fL 79.6 - 97.7 fL [facility] Platelet mean volume (Bld) [Entitic vol] 9.3 fL 8.5 - 12.2 fL [facility] Platelets (Bld) [#/Vol] 198 10*3/uL 150 - 393 K/uL [facility] RBC (Bld) [#/Vol] 3.84 10*6/uL Low [facility] WBC (Bld) [#/Vol] 4.94 10*3/uL 3.99 - 11.19 K/uL [facility] CHEM 7 (LYTES,BUN,CREA,GLUC) on 06-29-2023 Anion gap [Moles/Vol] 10 mmol/L Normal 7-17 [facility] Comment on above: Performed By: #### C JACKELINE, KALEB, IPB #### [facility] (DEFAULT) [address] [place] [address] Chloride [Moles/Vol] 110 mmol/L High 98-108 [facility] Comment on above: Performed By: #### Simon VIVEROS, MGLopez, IPB #### [facility] (DEFAULT) [address] [place] [address] CO2 [Moles/Vol] 25 mmol/L Normal 21-31 [facility] Comment on above: Performed By: #### KALEB FONTENOT, IPB #### [facility] (DEFAULT) [address] [place] [address] Creatinine [Mass/Vol] 0.46 mg/dL Low 0.50-1.20 [facility] Comment on above: Performed By: #### Simon VIVEROS MGO, IPB #### [facility] (DEFAULT) [address] [place] [address] eGFR, CKD-EPI, Female > Normal >=60 [facility] Comment on above: Result Comment: Repo rted eGFR is based on the CKD-EPI 2020 equation using creatinine, age, and sex. Performed By: #### KALEB FONTENOT, IPB #### [facility] (DEFAULT) [address] [place] [address] Glucose [Mass/Vol] 101 mg/dL High 70-99 [facility] Comment on above: Performed By: #### KALEB FONTENOT, IPB #### [facility] (DEFAULT) [address] [place] [address] Osmolality [Osmolality] 292 mosm/kg Normal 278-305 [facility] Comment on above: Performed By: #### KALEB FONTENOT, IPB #### [facility] (DEFAULT) [address] [place] [address]47 Potassium [Moles/Vol] 3.9 mmol/L Normal 3.5-5.0 [facility] Comment on above: Performed By: #### Simon VIVEROS MGO, IPB #### [facility] (DEFAULT) [address] [place] [address]29 Sodium [Moles/Vol] 141 mmol/L Normal 135-145 [facility] Comment on above: Performed By: #### Simon VIVEROS, MGO, IPB #### [facility] (DEFAULT) [address] [place] [address]383 Urea nitrogen [Mass/Vol] 5 mg/dL Low 7-25 [facility] Comment on above: Performed By: #### KALEB FONTENOT IPB #### [facility] (DEFAULT) [address] [place] [address] Urea nitrogen/Creatinine [Mass ratio] 11 mg/mg Normal [facility] Comment on above: Performed By: #### KALEB FONTENOT IPB #### [facility] (DEFAULT) [address] [place] [address] Anion gap [Moles/Vol] 10 mmol/L 7 - 17 mmol/L [facility] Chloride [Moles/Vol] 110 mmol/L High 98 - 10 8 mmol/L [facility] CO2 [Moles/Vol] 25 mmol/L 21 - 31 mmol/L [facility] Creatinine [Mass/Vol] 0.46 mg/dL Low 0.50 - 1.20 mg/dL [facility] GFR/1.73 sq M.predicted CKD-EPI (S/P/Bld) [Vol rate/Area] - PINF [facility] Comment on above: Reported eGFR is bas ed on the CKD-EPI 2020 equation using creatinine, age, and sex. Glucose [Mass/Vol] 101 mg/dL High 70 - 99 mg/dL [facility] Interpretation and review of laboratory results Abnormal [facility] Osmolality Calc [Osmolality] 292 [facility] Potassium [Moles/Vol] 3.9 mmol/L 3.5 - 5.0 mmol/L [facility] Sodium [Moles/Vol] 141 mmol/L 135 - 145 mmol/L [facility] Urea nitrogen [Mass/Vol] 5 mg/dL Low 7 - 25 mg/dL [facility] Urea nitrogen/Creatinine [Mass ratio] 11 mg/mg [facility] MAGNESIUMon 06-29-2023 Magnesium [Mass/Vol] 1.7 mg/dL Normal 1.6-2.6 [facility] Comment on above: Performed By: #### KALEB FONTENOT IPB #### [facility] (DEFAULT) [address] [place] [address] Magnesium [Mass/Vol] 1.7 mg/dL 1.6 - 2 .6 mg/dL [facility] No Panel Informationon 06-29 [facility] Interpretation and review of laboratory results Normal [facility] PHOSPHATE, INORGANICon 06-29 Phosphorous 2.8 mg/dL Normal 2.2-4.6 [facility] Comment on above: Performed By: #### C HM7, MGO, IPB #### [facility] (DEFAULT) [address] [place] [address] Phosphate [Mass/Vol] 2.8 mg/dL 2.2 - 4 .6 mg/dL [facility] XR ABDOMEN 1 VIEW PORTABLEon 06-29-2023 XR ABDOMEN 1 VIEW PORTABLE EXAM: XR ABDOMEN 1 VIEW PORTABLE, 06/29/2023 14:20 PM COMPARISON: CT abdomen and pelvis from January 04, 2023. CLINICAL INDICATIONS: Evaluate for SBO FINDINGS: Tubes: None. No definite pneumoperitoneum or pneumatosis of the bowel wall. There is a non obstructive bowel gas pattern. No organomegaly or mass effect. No definite stones. Phleboliths and tubal ligation clips in the pelvis.. Visualized osseous structures are unremarkable for the patient's age. IMPRESSION: Nonobstructive bowel gas pattern. Normal [facility] XR Abdomen Single viewon IMPRESSION: Nonobstructive bowel gas pattern. OLOGY EXAM: XR ABDOMEN 1 V IEW PORTABLE, 06/29/2023 14:20 PM COMPARISON: CT abdomen and pelvis from January 04, 2023. CLINICAL INDICATIONS: Evaluate for SBO FINDINGS: Tubes: None. No definite pneumoperitoneum or pneumatosis of the bowel wall. There is a non obstructive bowel gas pattern. No organomegaly or mass effect. No definite stones. Phleboliths and tubal ligation clips in the pelvis.. Visualized osseous structures are unremarkable for the patient's age. RADIOLOGY Roya Dey MD - 06/29/2023 EXAM: XR ABDOMEN 1 VIEW PORTABLE, 06/29/2023 14:20 PM COMPARISON: CT abdomen and pelvis from January 04, 2023. CLINICAL INDICATIONS: Evaluate for SBO FINDINGS: Tubes: None. No definite pneumoperitoneum or pneumatosis of the bowel wall. There is a non obstructive bowel gas pattern. No organomegaly or mass effect. No definite stones. Phleboliths and tubal ligation clips in the pelvis.. Visualized osseous structures are unremarkable for the patient's age. IMPRESSION IMPRESSION: Nonobstructive bowel gas pattern. [facility] Radiology Study observation (narrative) [facility] XR Abdomen Single viewOrdere d By: Roya Dey on 06-29-2023 [facility] Work Phone: BETA HCG, QUAL, BLOODon 06-10 HCG (Qual) Serum Negative Normal Negative [facility] Comment on above: Performed By: #### G NICK, HFP, LIPA, CHM6 #### [facility] (DEFAULT) [address] [place] [address] CBC AND ELECTRONIC DIFFon Abs Baso Auto < Normal 0.00-0.15 [facility] Comment on above: Performed By: #### L [id number] #### [facility] (DEFAULT) [address] [place] [address] Basophils/100 WBC (Bld) 0.4 % Normal [facility] Comment on above: Performed By: #### L [id number] #### [facility] (DEFAULT) [address] [address] DIFF STATUS Electronic Differential Normal [facility] Comment on above: Performed By: #### L [id number] #### [facility] (DEFAULT) [address] [place] [address] 72702 Eosinophils (Bld) [#/Vol] 0.19 10*3/uL Normal 0.00-0.42 [facility] Comment on above: Performed By: #### L [id number] #### [facility] (DEFAULT) [address] [address] Eosinophils/100 WBC (Bld) 2.3 % Normal [facility] Comment on above: Performed By: #### L [id number] #### [facility] (DEFAULT) [address] [address] Hematocrit (Bld) [Volume fraction] 35.7 % Normal 34.9-44.3 [facility] Comment on above: Performed By: #### L [id number] #### [facility] (DEFAULT) [address] [address] Hemoglobin (Bld) [Mass/Vol] 11.7 g/dL Normal 11.4-15.2 [facility] Comment on above: Performed By: #### L [id number] #### [facility] (DEFAULT) [address] [address] Immature Grans % 0.2 % Normal [facility] Comment on above: Performed By: #### L [id number] #### [facility] (DEFAULT) [address] [address] Immature Grans Absolute < Normal <=0.08 [facility] Comment on above: Performed By: #### L [id number] #### [facility] (DEFAULT) [address] [place] [address] Lymphocytes (Bld) [#/Vol] 2.10 10*3/uL Normal 1.16-3.51 [facility] Comment on above: Performed By: #### L [id number] #### [facility] (DEFAULT) [address] [address] Lymphocytes/100 WBC (Bld) 25.0 % Normal [facility] Comment on above: Performed By: #### L [id number] #### [facility] (DEFAULT) [address] [place] [address]489 MCV (RBC) [Entitic vol] 95.2 fL Normal 79.6-97.7 [facility] Comment on above: Performed By: #### L [id number] #### [facility] (DEFAULT) [address] [place] [address]81 Mean Cell Hgb 31.2 pg Normal 25.9-33.9 [facility] Comment on above: Performed By: #### L [id number] #### [facility] (DEFAULT) [address] [place] [address] 30063 Mean Cell Hgb Conc 32.8 g/dL Normal 31.4-35.9 [facility] Comment on above: Performed By: #### L [id number] #### [facility] (DEFAULT) [address] [place] [address] Monocytes (Bld) [#/Vol] 0.45 10*3/uL Normal 0.22-0.87 [facility] Comment on above: Performed By: #### L [id number] #### [facility] (DEFAULT) [address] [address] Monocytes/100 WBC (Bld) 5.4 % Normal [facility] Comment on above: Performed By: #### L [id number] #### [facility] (DEFAULT) [address] [address] Nucleated RBC 0.0 /100 WBC Normal <=0.2 [facility] Comment on above: Performed By: #### L [id number] #### [facility] (DEFAULT) [address] [place] [address]95 Platelet mean volume (Bld) [Entitic vol] 9.0 fL Normal 8.5-12.2 [facility] Comment on above: Performed By: #### L [id number] #### [facility] (DEFAULT) [address] [place] [address]898 Platelets (Bld) [#/Vol] 221 10*3/uL Normal 150-393 [facility] Comment on above: Performed By: #### L [id number] #### [facility] (DEFAULT) [address] [place] [address] RBC (Bld) [#/Vol] 3.75 10*6/uL Low 3.91-5.04 [facility] Comment on above: Performed By: #### L [id number] #### [facility] (DEFAULT) [address] [place] [address] 97759 RBC Distribution 12.2 % Normal 10.8-14.9 [facility] Comment on above: Performed By: #### L [id number] #### [facility] (DEFAULT) [address] [address] Segs + Bands Auto 66.7 % Normal [facility] Comment on above: Performed By: #### L [id number] #### [facility] (DEFAULT) [address] [address] Segs + Bands,Absolute Auto 5.62 K/uL Normal 1.64-7.28 [facility] Comment on above: Performed By: #### L [id number] #### [facility] (DEFAULT) [address] [address] WBC (Bld) [#/Vol] 8.41 10*3/uL Normal 3.99-11.19 [facility] Comment on above: Performed By: #### L [id number] #### [facility] (DEFAULT) [address] [address] CHEM 6 (LYTES, BUN CREA)on 0 06-28-2023 Anion gap [Moles/Vol] 9 mmol/L Normal 7-17 [facility] Comment on above: Performed By: #### G NICK, HFP, LIPA, CHM6 #### [facility] (DEFAULT) [address] [place] [address] Chloride [Moles/Vol] 107 mmol/L Normal 98-108 [facility] Comment on above: Performed By: #### G NICK, HFP, LIPA, CHM6 #### [facility] (DEFAULT) [address] [place] [address]006 CO2 [Moles/Vol] 25 mmol/L Normal 21-31 [facility] Comment on above: Performed By: #### G NICK, HFP, LIPA, CHM6 #### [facility] (DEFAULT) [address] [place] [address] Creatinine [Mass/Vol] 0.50 mg/dL Normal 0.50-1.20 [facility] Comment on above: Performed By: #### G NICK, HFP, LIPA, CHM6 #### [facility] (DEFAULT) [address] [place] [address] eGFR, CKD-EPI, Female > Normal >=60 [facility] Comment on above: Result Comment: Repo rted eGFR is based on the CKD-EPI 2020 equation using creatinine, age, and sex. Performed By: #### G NICK, HFP, LIPA, CHM6 #### [facility] (DEFAULT) [address] [place] [address] Potassium [Moles/Vol] 3.7 mmol/L Normal 3.5-5.0 [facility] Comment on above: Performed By: #### G NICK, HFP, LIPA, CHM6 #### [facility] (DEFAULT) [address] [place] [address] Sodium [Moles/Vol] 137 mmol/L Normal 135-145 [facility] Comment on above: Performed By: #### G NICK, HFP, LIPA, CHM6 #### [facility] (DEFAULT) [address] [place] [address]98 Urea nitrogen [Mass/Vol] 8 mg/dL Normal 7-25 [facility] Comment on above: Performed By: #### G NICK, HFP, LIPA, CHM6 #### [facility] (DEFAULT) [address] [place] [address] Urea nitrogen/Creatinine [Mass ratio] 16 mg/mg Normal [facility] Comment on above: Performed By: #### G NICK, HFP, LIPA, CHM6 #### [facility] (DEFAULT) [address] [place] [address] GLUCOSEon 06-28-2023 Glucose [Mass/Vol] 90 mg/dL Normal 70-99 [facility] Comment on above: Performed By: #### G NICK, HFP, LIPA, CHM6 #### [facility] (DEFAULT) [address] [place] [address]72 HEPATIC FUNCTION PANELon Albumin [Mass/Vol] 3.9 g/dL Normal 3.5-5.0 [facility] Comment on above: Performed By: #### G NICK, HFP, LIPA, CHM6 #### [facility] (DEFAULT) [address] [place] [address] ALP [Catalytic activity/Vol] 35 U/L Normal 32-126 [facility] Comment on above: Performed By: #### G NICK, HFP, LIPA, CHM6 #### [facility] (DEFAULT) [address] [place] [address] ALT [Catalytic activity/Vol] 8 U/L Low 9-48 [facility] Comment on above: Performed By: #### G NICK, HFP, LIPA, CHM6 #### [facility] (DEFAULT) [address] [place] [address] 56671 AST [Catalytic activity/Vol] 8 U/L Low 10-39 [facility] Comment on above: Performed By: #### G NICK, HFP, LIPA, CHM6 #### [facility] (DEFAULT) [address] [place] [address] Bilirubin [Mass/Vol] 0.2 mg/dL Normal <1.5 [facility] Comment on above: Performed By: #### G NICK, HFP, LIPA, CHM6 #### [facility] (DEFAULT) [address] [place] [address] Bilirubin Direct < Normal <0.3 [facility] Comment on above: Performed By: #### G NICK, HFP, LIPA, CHM6 #### [facility] (DEFAULT) [address] [place] [address] Protein [Mass/Vol] 5.8 g/dL Low 6.4-8.3 [facility] Comment on above: Performed By: #### G NICK, HFP, LIPA, CHM6 #### [facility] (DEFAULT) [address] [place] [address] LIPASEon 06-28-2023 Lipase [Catalytic activity/Vol] 27 U/L Normal 11-82 [facility] Comment on above: Performed By: #### G NICK, HFP, LIPA, CHM6 #### [facility] (DEFAULT) [address] [place] [address] LT BLUE TOP TUBEon 3 [facility] VENOUS BLOOD GAS PLUS LACTAT [place] 06-28-2023 Base Excess -0.6 mmol/L Normal -3.0-3.0 [facility] Comment on above: Order Comment: Previ ous test canceled due to exceeding time limit on sample. Performed By: #### G NICK, HFP, LIPA, CHM6 #### [facility] (DEFAULT) [address] [place] [address]1491 HCO3 (Bld) [Moles/Vol] 25 mmol/L Normal 22-29 [facility] Comment on above: Order Comment: Previ ous test canceled due to exceeding time limit on sample. Performed By: #### G NICK, HFP, LIPA, CHM6 #### [facility] (DEFAULT) [address] [place] [address] Lactate, Whole Blood 1.8 mmol/L High 0.5-1.6 [facility] Comment on above: Order Comment: Previ ous test canceled due to exceeding time limit on sample. Performed By: #### G NICK, HFP, LIPA, CHM6 #### [facility] (DEFAULT) [address] [place] [address] PCO2 48 mm Hg Normal 36-52 [facility] Comment on above: Order Comment: Previ ous test canceled due to exceeding time limit on sample. Performed By: #### G NICK, HFP, LIPA, CHM6 #### [facility] (DEFAULT) [address] [place] [address] pH (Bld) 7.33 [pH] Normal 7.32-7.43 [facility] Comment on above: Order Comment: Previ ous test canceled due to exceeding time limit on sample. Performed By: #### G NICK, HFP, LIPA, CHM6 #### [facility] (DEFAULT) [address] [address] PO2 43 mm Hg Normal [facility] Comment on above: Order Comment: Previ ous test canceled due to exceeding time limit on sample. Result Comment: Veno us pO2 is not recommended for the evaluation of oxygen status, clinical correlation is recommended. Performed By: #### G NICK, HFP, LIPA, CHM6 #### [facility] (DEFAULT) [address] [place] [address] sO2 70 % Normal 70-80 [facility] Comment on above: Order Comment: Previ ous test canceled due to exceeding time limit on sample. Performed By: #### G NICK, HFP, LIPA, CHM6 #### [facility] (DEFAULT) [address] [place] [address] Specimen type Nom (Spec) Venous Normal [facility] Comment on above: Order Comment: Previ ous test canceled due to exceeding time limit on sample. Performed By: #### G NICK, HFP, LIPA, CHM6 #### [facility] (DEFAULT) [address] [place] [address] Base excess Calc (Bld) [Moles/Vol] -0.6000 mmol/L -3.0 - 3.0 mmol/L [facility] CO2 (Bld) [Partial pressure] 48 mm[Hg] [facility] HCO3 (Bld) [Moles/Vol] 25 mmol/L 22 - 29 mmol/L [facility] Interpretation and review of laboratory results Abnormal [facility] Lactate [Moles/Vol] 1.8 mmol/L High 0.5 - 1. 6 mmol/L [facility] Oxygen (Bld) [Partial pressure] 43 mm[Hg] mm Hg [facility] Comment on above: Venous pO2 is not re commended for the evaluation of oxygen status, clinical correlation is recommended. Oxygen saturation in Blood 70 % 70 - 80 % [facility] pH (Bld) 7.33 [pH] 7.32 - 7.43 [facility] Specimen source Nom (Unsp spec) Venous [facility] CBC AND ELECTRONIC DIFFon Basophils (Bld) [#/Vol] K/uL 0.00 - 0.15 K/uL [facility] Basophils/100 WBC (Bld) 0.4 % [facility] Differential cell count method Nom (Bld) Electronic Differential [facility] Eosinophils (Bld) [#/Vol] 0.19 10*3/uL 0.00 - 0.42 K/uL [facility] Eosinophils/100 WBC (Bld) 2.3 % [facility] Erythrocyte distribution width (RBC) [Ratio] 12.2 % 10.8 - 14.9 % [facility] Hematocrit (Bld) [Volume fraction] 35.7 % 34.9 - 44.3 % [facility] Hemoglobin (Bld) [Mass/Vol] 11.7 g/dL 11.4 - 15.2 g/dL [facility] Immature granulocytes (Bld) [#/Vol] K/uL NINF - 0.08 K/uL [facility] Immature granulocytes/100 WBC (Bld) 0.2 % [facility] Interpretation and review of laboratory results Abnormal [facility] Lymphocytes (Bld) [#/Vol] 2.10 10*3/uL 1.16 - 3.51 K/uL [facility] Lymphocytes/100 WBC (Bld) 25.0 % [facility] MCH (RBC) [Entitic mass] 31.2 pg 25.9 - 33.9 pg [facility] MCHC (RBC) [Mass/Vol] 32.8 g/dL 31.4 - 35.9 g/dL [facility] MCV (RBC) [Entitic vol] 95.2 fL 79.6 - 97.7 fL [facility] Monocytes (Bld) [#/Vol] 0.45 10*3/uL 0.22 - 0.87 K/uL [facility] Monocytes/100 WBC (Bld) 5.4 % [facility] Neutrophils (Bld) [#/Vol] 5.62 10*3/uL 1.64 - 7.28 K/uL [facility] Nucleated RBC/100 WBC (Bld) [Ratio] 0.0 % [facility] Platelet mean volume (Bld) [Entitic vol] 9.0 fL 8.5 - 12.2 fL [facility] Platelets (Bld) [#/Vol] 221 10*3/uL 150 - 393 K/uL [facility] RBC (Bld) [#/Vol] 3.75 10*6/uL Low [facility] Segmented neutrophils/100 WBC (Bld) 66.7 % [facility] WBC (Bld) [#/Vol] 8.41 10*3/uL 3.99 - 11.19 K/uL [facility] CHEM 6 (LYTES, BUN CREA)on 0 06-27-2023 Anion gap [Moles/Vol] 9 mmol/L 7 - 17 mmol/L [facility] Chloride [Moles/Vol] 107 mmol/L 98 - 10 8 mmol/L [facility] CO2 [Moles/Vol] 25 mmol/L 21 - 31 mmol/L [facility] Creatinine [Mass/Vol] 0.50 mg/dL 0.50 - 1.20 mg/dL [facility] GFR/1.73 sq M.predicted CKD-EPI (S/P/Bld) [Vol rate/Area] - PINF [facility] Comment on above: Reported eGFR is bas ed on the CKD-EPI 2020 equation using creatinine, age, and sex. Potassium [Moles/Vol] 3.7 mmol/L 3.5 - 5.0 mmol/L [facility] Sodium [Moles/Vol] 137 mmol/L 135 - 145 mmol/L [facility] Urea nitrogen [Mass/Vol] 8 mg/dL 7 - 25 mg/dL [facility] Urea nitrogen/Creatinine [Mass ratio] 16 mg/[facility] ABDOMEN PELVIS WITH IV CO NTRAST ONLYon 06-27-2023 CT ABDOMEN PELVIS WITH IV CONTRAST ONLY EXAM: CT ABDOMEN PELVIS WITH IV CONTRAST ONLY DATE: 06/27/2023 2:12 pm TECHNIQUE: Axial CT images were obtained through the abdomen and pelvis following intravenous contrast administration. Multiplanar reformatted images also created. IOPAMIDOL 370 MG IODINE/ML (76 %) INTRAVENOUS SOLUTION - 75 mL, Dose reduction techniques were achieved by using automated exposure control and/or adjustment of mA and/or kV according to patient size and/or use of iterative reconstruction technique. HISTORY: ORDERING SYSTEM PROVIDED HISTORY: adbominal pain cocner for hernia issue, TECHNOLOGIST PROVIDED HISTORY: Illness/Other Reason for exam: hernia pain popped yesterday increased pain today with multiple surgeries Encounter Type: Initial Additional signs and symptoms: na ORDERING SYSTEM PROVIDED DIAGNOSIS CODES: COMPARISON: CT abdomen and pelvis: 04/28/2021, 03/17/2021 FINDINGS: Lower chest: The lower lungs are clear. Liver: The liver is homogeneous with normal contours and normal size. Gallbladder: Status post cholecystectomy. Mild central biliary dilatation is likely within normal limits, following cholecystectomy. Pancreas: The pancreas is homogeneous without evidence for mass lesion or inflammation. Spleen: The spleen is unremarkable without evidence for mass lesion. Adrenals: The adrenal glands are unremarkable Kidneys and bladder: A 13 mm exophytic well-defined lesion arises from the lower pole the left kidney laterally stable from 2020. A 10 mm exophytic lesion arising from the midpole the left kidney posteriorly measures 32 Hounsfield units in density and is new.Is a 15 mm cortical cyst in the midpole the right kidney. There is a 1-2 mm calculus in the lower pole the right kidney.The ureters demonstrate normal caliber.The urinary bladder is unremarkable. GI tract: Stomach is unremarkable.Visualized small bowel is unremarkable without evidence for obstruction or active inflammation. There are 2 intact small bowel anastomoses in the left abdomen. The appendix is not seen. There is intermixed air stool in the colon. There is no evidence for colitis or diverticulitis. Multiple small bowel loops and the right colon are located within a ventral hernia. Reproductive: Unremarkable Lymph nodes: No retroperitoneal or abdominal lymphadenopathy. Vascular: The aorta demonstrates normal caliber without aneurysm or dissection.The major aorta branch vessels are patent. Peritoneum: No free intraperitoneal air or fluid. No acute inflammation. Abdominal wall and Skeletal: There is a large defect in the abdominal wall between the rectus muscles measuring 8.8 x 13.8 cm in transverse and craniocaudal dimension. There is a hernia passing through this defect measuring 10.7 x 23.9 x 21.0 cm in overall dimensions. Multiple loops of small large bowel are seen within this hernia. IMPRESSION: 1. There is a very large ventral abdominal wall hernia containing the right colon and multiple loops of small bowel. 2. A 13 mm exophytic intermediate density lesion arising from the lower pole of the left kidney is stable and most compatible with a complex cyst. A 10 mm exophytic intermediate density lesion arising from the midpole of the left kidney posteriorly is new. This could represent a small cyst containing proteinaceous or hemorrhagic debris but a small solid lesion is not excluded. Consider a follow-up renal ultrasound to better characterize this lesion or a repeat CT in 6-12 months to evaluate for stability. 3. There are additional chronic and incidental findings described above. Workstation ID: [id number] Dictated by: JUSTIN WEINER on TueJun 27, 2023 2:51:48 PM EDT Transcribed by: JUSTIN WEINER on TueJun 27, 2023 2:51:48 PM EDT Finalized by: JUSTIN WEINER on TueJun 27, 2023 2:51:48 PM EDT [facility] Comment on above: Order Comment: Injur y/Trauma or Illness?:Illness/Other How long have you had these symptoms (acute/chronic)?:Acute Reason for exam?:hernia pain popped yesterday increased pain today with multiple surgeries Type of Exam?:Initial Additional signs and symptoms?:na GLUCOSEon 06-27-2023 Glucose [Mass/Vol] 90 mg/dL 70 - 99 mg/dL [facility] HCG ( test) QlOrder ed By: Rick Sawant on 06-27-2023 Beta HCG ( test) Ql Negative Negative [facility] Interpretation and review of laboratory results Normal [facility] HEPATIC FUNCTION PANELon Albumin [Mass/Vol] 3.9 g/dL 3.5 - 5.0 g/dL [facility] ALP [Catalytic activity/Vol] 35 U/L 32 - 126 U/L [facility] ALT [Catalytic activity/Vol] 8 U/L Low 9 - 48 U/L [facility] AST [Catalytic activity/Vol] 8 U/L Low 10 - 39 U/L [facility] Bilirubin [Mass/Vol] 0.2 mg/dL NINF - 1.5 mg/dL [facility] Bilirubin.direct [Mass/Vol] mg/dL NINF - 0.3 mg/dL [facility] Interpretation and review of laboratory results Abnormal [facility] Protein [Mass/Vol] 5.8 g/dL Low 6.4 - 8.3 g/dL [facility] LIPASEon 06-27-2023 Lipase [Catalytic activity/Vol] 27 U/L 11 - 82 U/L [facility] No Panel Informationon 06-27 Interpretation and review of laboratory results Normal [facility] EMERGENCY REPORTon 3 EMERGENCY REPORT [facility] EMERGENCY ROOM REPORT NAME ACCOUNT SEX AGE ADMIT DISCHARGE PT MED. RECORD# NUMBER DATE DATE TYPE [place] [id number] F 37 05/20/23 05/20/23 [place] [address] ROOM: ER DATE OF : 1985 DICTATING PHYSICIAN: Tanya Heard ADDENDUM HISTORY OF PRESENT ILLNESS: This is a 37-year-old female who was initially seen by Dr. Charlton and endorsed to the care of Dr. Heard at 1750 hours. The chief complaint here was abdominal swelling. She has a known ventral hernia. She has been dieting in an attempt to lose weight. She has met her dietary goals. She has lost about 100 pounds, and now she is due to go see the surgeon next week to get this hernia reduced. She has had her gallbladder out. She has her appendix. She has not had a hysterectomy. She states she is not . She is employed. She states that she had vomiting today, and her boss told her to go home so she came here to the Emergency Room. She does not have any pain medicine at home. Percocet has worked well for her in the past. She states she has had strangulation in the past. The discomfort is in the vicinity of her hernia, and it is quite large on examination. She gives her own history. Dr. Charlton had given her some Phenergan IV, which helped with her nausea, but she states she was still having pain. She states the Dilaudid works well for her. PHYSICAL EXAMINATION: VITAL SIGNS: 112/55 blood pressure, 98.2 temperature, 97% saturation, 78 pulse, and 20 respirations. EMERGENCY DEPARTMENT COURSE AND TREATMENT: Her laboratory data was really good. We gave her some IV Dilaudid, IV Ativan and IV Phenergan, which helped her real well. She was very comfortable. We went back and were able to easily reduce this hernia. It was not entrapped or anything. We watched her for awhile. It was not until an hour later that she was able to exit the Emergency Room. In the meantime, she felt well. She was on her smart phone. Her abdomen remained soft. The hernia remained reduced. She asked for a couple Percocet for home and a prescription, and we gave her some. I told her she is welcome to return p.r.n. DIAGNOSIS: Abdominal hernia discomfort. Dictated By: Tanya Heard DO 05/21/23 06:32 JOB #: [id number] Transcribed By: meli 05/21/23 08:21 Electronically signed by: ULYSSES HEARD DO 06/24/23 04:15 Page 1 of 1 [facility] Emergency Room Report Normal [facility] EMERGENCY REPORTon 3 EMERGENCY REPORT [facility] EMERGENCY ROOM REPORT NAME ACCOUNT SEX AGE ADMIT DISCHARGE PT MED. RECORD# NUMBER DATE DATE TYPE [place] [id number] F 37 05/20/23 05/20/23 3 MEL [place] [address] ROOM: ER DATE OF : 1985 DICTATING PHYSICIAN: Satish Charlton HISTORY OF PRESENT ILLNESS: The patient came in and says she has a hernia which she is going to have repaired on June 15, 2023. She complains of nausea, vomiting and abdominal pain which she says is an 8/10. It is a constant, sharp pain. It is better with rest and worse with movement. She presents to the Emergency Department. PAST MEDICAL HISTORY: She does have a history of a hernia. She has had depression and anxiety issues. PAST SURGICAL HISTORY: She has had an appendectomy, cholecystectomy and hernia surgery. SOCIAL HISTORY: She does use marijuana. She does not smoke or drink. REVIEW OF SYSTEMS: Ten systems were reviewed and were negative except as mentioned above. PHYSICAL EXAMINATION: VITAL SIGNS: The patient is afebrile. Pulse is 78, respirations 20, blood pressure 112/55, and pulse oximetry 97% on room air. HEENT: Head is normocephalic, atraumatic. Eyes: Pupils are equal, round and reactive to light. Extraocular muscles are intact. Nares are patent. Throat has adequate oral moisture. Uvula is midline. NECK: Neck is supple without petechiae or rash. HEART: Heart rate is regular without murmur. S1 is equal to S2. No S3 or S4 appreciated. LUNGS: Lungs are clear to auscultation bilaterally. ABDOMEN: Abdomen is soft with generalized tenderness. She has a hernia. SKIN: Skin is warm and dry. She is nontoxic-appearing. EMERGENCY DEPARTMENT COURSE AND TREATMENT: I did order bloodwork as well as antiemetics, and she was endorsed over to Dr. Heard at shift change. Dictated By: Satish Charlton DO 05/30/23 23:01 JOB #: [id number] Transcribed By: meli 05/31/23 08:44 Electronically signed by: AZEEM Charlton DO 06/02/23 12:41 Page 1 of 1 [facility] Emergency Room Report Normal [facility] C-REACTIVE PROTEINon 023 CRP [Mass/Vol] mg/L Normal 0.00 - 0.90 [facility] Comment on above: Performed By: #### 2 [id number] #### [facility],[address] [place] [address] CBC + DIFFon 06-01-2023 Baso # 0.10 x10EE3/UL Normal 0.00 - 0.10 [facility] Comment on above: Performed By: #### 2 [id number] #### [facility],[address] [place] [address] Basophils/100 WBC (Bld) 0.7 % Normal 0.0 - 2.0 [facility] Comment on above: Performed By: #### 2 17912 #### [facility],[address] [place] [address] CBC + DIFF Normal [facility] Comment on above: Result Comment: CBC- COMPLETE BLOOD COUNT Performed By: #### 2 03725 #### [facility],[address] [place] [address] EO # 0.10 x10EE3/UL Normal 0.00 - 0.50 [facility] Comment on above: Performed By: #### 2 [id number] #### [facility],[address] [place] [address] Eosinophils/100 WBC (Bld) 1.3 % Normal 0.0 - 7.0 [facility] Comment on above: Performed By: #### 2 [id number] #### [facility],[address] [place] [address] Erythrocyte distribution width (RBC) [Ratio] 13.4 % Normal 12.0 - 15.6 [facility] Comment on above: Performed By: #### 2 41656 #### [facility],[address] [place] [address] Hematocrit (Bld) [Volume fraction] 36.2 % Normal 34.0 - 46.0 [facility] Comment on above: Performed By: #### 2 17710 #### [facility],[address] [place] [address] Hemoglobin (Bld) [Mass/Vol] 12.0 g/dL Normal 12.0 - 16.0 [facility] Comment on above: Performed By: #### 2 34484 #### [facility],[address] [place] [address] Lymph # 1.40 x10EE3/UL Normal 0.80 - 2.80 [facility] Comment on above: Performed By: #### 2 07080 #### [facility],[address] [place] [address] Lymphocytes/100 WBC (Bld) 17.0 % Low 20.0 - 45.0 [facility] Comment on above: Performed By: #### 2 57112 #### [facility],[address] [place] [address] MANUAL DIFF N/A Normal [facility] Comment on above: Performed By: #### 2 21005 #### [facility],[address] [place] [address] MCH (RBC) [Entitic mass] 31 pg Normal 27 - 33 [facility] Comment on above: Performed By: #### 2 [id number] #### [facility],[address] [place] [address] MCHC 33 X10 3 Normal 32 - 36 [facility] Comment on above: Performed By: #### 2 05551 #### [facility],[address] [place], [place] [id number] MCV (RBC) [Entitic vol] 94 fL Normal 80 - 99 [facility] Comment on above: Performed By: #### 2 89510 #### [facility],[address],[place] [address] Charlton # 0.50 x10EE3/UL Normal 0.20 - 1.00 [facility] Comment on above: Performed By: #### 2 11603 #### [facility],[address] [place] [address] MONOS % 6.7 % Normal 0.0 - 10.0 [facility] Comment on above: Performed By: #### 2 88397 #### [facility],[address] [place] [address] Morphology Juve (Bld) [Interp] N/A Normal [facility] Comment on above: Result Comment: {CD] Performed By: #### 2 [id number] #### [facility],[address] [place] [address] Neut # 6.10 x10EE3/UL Normal 1.50 - 7.10 [facility] Comment on above: Performed By: #### 2 59667 #### [facility],[address] [place] [address] Neutrophils/100 WBC (Bld) 74.3 % Normal 46.0 - 76.0 [facility] Comment on above: Performed By: #### 2 28054 #### [facility],[address] [place] [address] PLATELET 248 x10EE3/UL Normal 150 - 450 [facility] Comment on above: Performed By: #### 2 28332 #### [facility],[address] [place] [address] Platelet mean volume (Bld) [Entitic vol] 7.1 fL Normal 6.6 - 10.5 [facility] Comment on above: Result Comment: AUTO MATED DIFFERENTIAL Performed By: #### 2 78675 #### [facility],[address] [place] [address] RBC 3.86 x 10EE6/UL Low 4.10 - 5.30 [facility] Comment on above: Performed By: #### 2 64800 #### [facility],[address] [place] [address] 74363 WBC 8.2 x 10EE3/UL Normal 4.5 - 10.8 [facility] Comment on above: Performed By: #### 2 71644 #### [facility],[address] [place] [address] 93128 CMP with eGFRon 06-01-2023 AGE 37 years Normal [facility] Comment on above: Performed By: #### 2 09546 #### [facility],[address] [place] [address] 50305 Albumin [Mass/Vol] 3.5 g/dL Normal 3.4 - 5.0 [facility] Comment on above: Performed By: #### 2 00881 #### [facility],[address] [place] [address] 52046 Albumin/Globulin [Mass ratio] 1.0 {ratio} Normal 0.9 - 1.6 [facility] Comment on above: Performed By: #### 2 02047 #### [facility],[address] [place] [address] 16398 ALK PHOS 43 U/L Low 46 - 116 [facility] Comment on above: Performed By: #### 2 51539 #### [facility],[address] [place] [address] 94901 ALT [Catalytic activity/Vol] 7 U/L Low 14 - 59 [facility] Comment on above: Performed By: #### 2 69583 #### [facility],[address] [place] [address] 49602 Anion gap [Moles/Vol] 17 mmol/L Normal 10 - 20 [facility] Comment on above: Performed By: #### 2 61304 #### [facility],[address] [place] [address] 42367 AST [Catalytic activity/Vol] 30 U/L Normal 13 - 39 [facility] Comment on above: Performed By: #### 2 74024 #### [facility],[address] [place] [address] 86365 B/C RATIO 29 ratio Normal 0 - 30 [facility] Comment on above: Performed By: #### 2 50092 #### [facility],[address] [place] [address] 26614 Bilirubin [Mass/Vol] 0.3 mg/dL Normal 0.2 - 1.0 [facility] Comment on above: Performed By: #### 2 13831 #### [facility],[address] [place] [address] 88826 Calcium [Mass/Vol] 9.0 mg/dL Normal 8.5 - 10.1 [facility] Comment on above: Performed By: #### 2 19606 #### [facility],[address] [place] [address] 38313 Chloride [Moles/Vol] 103 mmol/L Normal 98 - 107 [facility] Comment on above: Performed By: #### 2 01283 #### [facility],[address] [place] [address] 32795 CMP with eGFR Normal [facility] Comment on above: Result Comment: COMP REHENSIVE METABOLIC PANEL Performed By: #### 2 13496 #### [facility],[address] [place] [address] 12342 CO2 [Moles/Vol] 22.9 mmol/L Normal 21.0 - 32.0 [facility] Comment on above: Performed By: #### 2 08024 #### [facility],[address] [place] [address] 78339 Creatinine [Mass/Vol] 0.52 mg/dL Low 0.55 - 1.02 [facility] Comment on above: Performed By: #### 2 02346 #### [facility],[address] [place] [address] 80679 GFR/1.73 sq M.predicted among non-blacks MDRD (S/P/Bld) [Vol rate/Area] mL/min/{1.73_m2} Normal 60 - 999 [facility] Comment on above: Performed By: #### 2 75837 #### [facility],[address] [place] [address] 86383 Result Comment: ACCO RDING TO THE NATIONAL KIDNEY DISEASE EDUCATION PROGRAM(NKDE), A NORMAL eGFR IS A VALUE GREATER THAN OR EQUAL TO 60 ML/MIN/1.73 SQ METERS. CHRONIC KIDNEY DISEASE: <60mL/MIN/1.73 SQ METERS KIDNEY FAILURE: <15mL/MIN/1.73 SQ METERS THIS TEST SHOULD ONLY BE USED FOR PATIENTS 18 YEARS OF AGE AND OLDER. Globulin (S) [Mass/Vol] 3.5 g/dL Normal 1.5 - 3.8 [facility] Comment on above: Performed By: #### 2 62770 #### [facility],[address] [place] [address] 20954 Glucose [Mass/Vol] 120 mg/dL High 74 - 106 [facility] Comment on above: Performed By: #### 2 35423 #### [facility],[address] [place] [address] 92287 Potassium [Moles/Vol] 3.6 mmol/L Normal 3.5 - 5.1 [facility] Comment on above: Performed By: #### 2 84594 #### [facility],[address] [place] [address] 84513 Protein [Mass/Vol] 7.0 g/dL Normal 6.4 - 8.2 [facility] Comment on above: Performed By: #### 2 33539 #### [facility],[address] [place] [address] 88998 Sodium [Moles/Vol] 139 mmol/L Normal 136 - 145 [facility] Comment on above: Performed By: #### 2 01856 #### [facility],[address] [place] [address] 83913 Urea nitrogen [Mass/Vol] 15 mg/dL Normal 7 - 18 [facility] Comment on above: Performed By: #### 2 20520 #### [facility] [place] [address] ABDOMEN/PELVIS Won 2022 CT ABDOMEN/PELVIS W [address] [address] Patient: MEL WALL Phone#: : 1985 Age: 37 Gender: F Pt. Type: ER Account: [id number] Location: 052 Ordering: TOM NIÑO Exam Date: 06/01/2023/1:24 Family Phys: Charge Code: [id number] Physician: Maricao Order #: [id number] Dose#: 35.80 PROCEDURE: CT ABDOMEN/PELVIS WITH CONTRAST COMPARISON: [facility], CT, ABDOMEN/PELVIS W CON, 03/02/2023, 5:32. INDICATIONS: Abdominal pain. TECHNIQUE: After obtaining the patient's consent, CT images were created with non-ionic intravenous contrast material. All CT scans at this facility use dose modulation, iterative reconstruction, and/or weight based dosing when appropriate to reduce radiation dose to as low as reasonably achievable. IV CONTRAST: Omnipaque 350,80ml TOTAL DOSE: 35.80 CTDIvol(mGy) FINDINGS: LIVER: Normal. No enlargement, atrophy, abnormal density, or significant focal lesion. BILIARY: The gallbladder is absent. PANCREAS: Normal. No lesion, fluid collection, ductal dilatation, or atrophy. SPLEEN: Normal. No enlargement or focal lesion. KIDNEYS: Hypodense renal foci consistent with cysts present. No mass, obstruction, or calcification. ADRENALS: Normal. No mass or enlargement. AORTA/VASCULAR: Normal. No aneurysm or dissection. RETROPERITONEUM: Normal. No mass or adenopathy. BOWEL/MESENTERY: Normal. No visible mass, obstruction, or bowel wall thickening. ABDOMINAL WALL: Large ventral hernia with orifice diameter of 11 centimeters is present in similar to prior exam. There is herniation of small large bowel without evidence of strangulation or obstruction. URINARY BLADDER: Normal. No visible focal wall thickening, lesion, or calculus. PELVIC NODES: Normal. No adenopathy. PELVIC ORGANS: Bilateral tubal ligation clips are present. No visible mass. Pelvic organs appropriate for patient age. BONES: Normal. No bony lesion or fracture. Continued Report - Page 2 of 2 Patient: MEL WALL Phone#: : 1985 Age: 37 Gender: F Pt. Type: ER Account: [id number] Location: 052 Ordering: TOM NIÑO Exam Date: 06/01/2023/1:24 Family Phys: Charge Code: [id number] Physician: Maricao Order #: [id number] Dose#: 35.80 LUNG BASES: Normal. No visible pulmonary or pleural disease. OTHER: Negative. CONCLUSION: 1. Large ventral hernia with herniation of small large bowel. There is no evidence of obstruction. 2. No other acute abdominal or pelvic abnormality is identified. Dictated by: Sherrie Olson MD on 06/01/2023 at 9:51 Approved by: Sherrie Olson MD on 06/01/2023 at 9:57 Normal [facility] LIPASEon 06-01-2023 Lipase [Catalytic activity/Vol] 203.0 U/L Normal 73.0 - 393 [facility] Comment on above: Performed By: #### 2 37388 #### [facility],[address] [place] [address] CBC + DIFFon 05-20-2023 Baso # 0.00 x10EE3/UL Normal 0.00 - 0.10 [facility] Comment on above: Performed By: #### 2 59558 #### [facility],[address] [place] [address] 53187 Basophils/100 WBC (Bld) 0.5 % Normal 0.0 - 2.0 [facility] Comment on above: Performed By: #### 2 32931 #### [facility],[address] [place] [address] 99843 CBC + DIFF Normal [facility] Comment on above: Result Comment: CBC- COMPLETE BLOOD COUNT Performed By: #### 2 62736 #### [facility],[address] [place] [address] 23642 EO # 0.30 x10EE3/UL Normal 0.00 - 0.50 [facility] Comment on above: Performed By: #### 2 53361 #### [place] [address] Eosinophils/100 WBC (Bld) 3.5 % Normal 0.0 - 7.0 [facility] Comment on above: Performed By: #### 2 51168 #### [facility],[address] [place] [address] Erythrocyte distribution width (RBC) [Ratio] 13.7 % Normal 12.0 - 15.6 [facility] Comment on above: Performed By: #### 2 15048 #### [place] [address] Hematocrit (Bld) [Volume fraction] 39.2 % Normal 34.0 - 46.0 [facility] Comment on above: Performed By: #### 2 96016 #### [place] [address] Hemoglobin (Bld) [Mass/Vol] 12.9 g/dL Normal 12.0 - 16.0 [facility] Comment on above: Performed By: #### 2 76374 #### [place] [address] Lymph # 2.10 x10EE3/UL Normal 0.80 - 2.80 [facility] Comment on above: Performed By: #### 2 35376 #### [place] [address] Lymphocytes/100 WBC (Bld) 23.0 % Normal 20.0 - 45.0 [facility] Comment on above: Performed By: #### 2 87969 #### [place] [address] MANUAL DIFF N/A Normal [facility] Comment on above: Performed By: #### 2 92054 #### [place] [address] MCH (RBC) [Entitic mass] 31 pg Normal 27 - 33 [facility] Comment on above: Performed By: #### 2 06137 #### [place] [address] MCHC 33 X10 3 Normal 32 - 36 [facility] Comment on above: Performed By: #### 2 87218 #### [facility],[address] [place] [address] MCV (RBC) [Entitic vol] 94 fL Normal 80 - 99 [facility] Comment on above: Performed By: #### 2 72142 #### [place] [address] [place]ton # 0.60 x10EE3/UL Normal 0.20 - 1.00 [facility] Comment on above: Performed By: #### 2 65657 #### [place] [address] MONOS % 6.6 % Normal 0.0 - 10.0 [facility] Comment on above: Performed By: #### 2 32217 #### [place] [address] Morphology Juve (Bld) [Interp] N/A Normal [facility] Comment on above: Result Comment: {CD] Performed By: #### 2 00257 #### [place] [address] Neut # 6.00 x10EE3/UL Normal 1.50 - 7.10 [facility] Comment on above: Performed By: #### 2 24456 #### [place] [address] Neutrophils/100 WBC (Bld) 66.4 % Normal 46.0 - 76.0 [facility] Comment on above: Performed By: #### 2 23232 #### [place] [address] PLATELET 272 x10EE3/UL Normal 150 - 450 [facility] Comment on above: Performed By: #### 2 38632 #### [facility],[address] [place] [address] 20947 Platelet mean volume (Bld) [Entitic vol] 7.3 fL Normal 6.6 - 10.5 [facility] Comment on above: Result Comment: AUTO MATED DIFFERENTIAL Performed By: #### 2 28323 #### [facility],[address] [place] [address] 99508 RBC 4.16 x 10EE6/UL Normal 4.10 - 5.30 [facility] Comment on above: Performed By: #### 2 37297 #### [facility],[address] [place] [address] 55499 WBC 9.0 x 10EE3/UL Normal 4.5 - 10.8 [facility] Comment on above: Performed By: #### 2 78281 #### [facility],[address] [place] [address] 31446 CMP with eGFRon 05-20-2023 AGE 37 years Normal [facility] Comment on above: Performed By: #### 2 43552 #### [facility],[address] [place] [address] 36811 Albumin [Mass/Vol] 3.4 g/dL Normal 3.4 - 5.0 [facility] Comment on above: Performed By: #### 2 33447 #### [facility],[address] [place] [address] 36835 Albumin/Globulin [Mass ratio] 1.1 {ratio} Normal 0.9 - 1.6 [facility] Comment on above: Performed By: #### 2 68743 #### [facility],[address] [place] [address] 96933 ALK PHOS 40 U/L Low 46 - 116 [facility] Comment on above: Performed By: #### 2 65216 #### [facility],[address] [place], [place] [id number] ALT [Catalytic activity/Vol] 12 U/L Low 14 - 59 [facility] Comment on above: Performed By: #### 2 82115 #### [facility],[address] [place], [place] [address] Anion gap [Moles/Vol] 12 mmol/L Normal 10 - 20 [facility] Comment on above: Performed By: #### 2 22782 #### [facility],[address] [place] [address] AST [Catalytic activity/Vol] 9 U/L Low 13 - 39 [facility] Comment on above: Performed By: #### 2 99378 #### [facility],[address] [place] [address] B/C RATIO 22 ratio Normal 0 - 30 [facility] Comment on above: Performed By: #### 2 80946 #### [facility],[address] [place] [address] Bilirubin [Mass/Vol] 0.1 mg/dL Low 0.2 - 1.0 [facility] Comment on above: Performed By: #### 2 00413 #### [facility],[address] [place] [address] 57633 Calcium [Mass/Vol] 8.1 mg/dL Low 8.5 - 10.1 [facility] Comment on above: Performed By: #### 2 09176 #### [facility],[address] [place], [place] [address] Chloride [Moles/Vol] 104 mmol/L Normal 98 - 107 [facility] Comment on above: Performed By: #### 2 32340 #### [facility],[address] [place], [place] [address] CMP with eGFR Normal [facility] Comment on above: Result Comment: COMP REHENSIVE METABOLIC PANEL Performed By: #### 2 47064 #### [facility],[address] [place] [address] 09040 CO2 [Moles/Vol] 26.3 mmol/L Normal 21.0 - 32.0 [facility] Comment on above: Performed By: #### 2 70428 #### [facility],[address] [place] [address] Creatinine [Mass/Vol] 0.54 mg/dL Low 0.55 - 1.02 [facility] Comment on above: Performed By: #### 2 64151 #### [facility],[address] [place] [address] GFR/1.73 sq M.predicted among non-blacks MDRD (S/P/Bld) [Vol rate/Area] mL/min/{1.73_m2} Normal 60 - 999 [facility] Comment on above: Performed By: #### 2 44502 #### [place] [address] Result Comment: ACCO RDING TO THE NATIONAL KIDNEY DISEASE EDUCATION PROGRAM(NKDE), A NORMAL eGFR IS A VALUE GREATER THAN OR EQUAL TO 60 ML/MIN/1.73 SQ METERS. CHRONIC KIDNEY DISEASE: <60mL/MIN/1.73 SQ METERS KIDNEY FAILURE: <15mL/MIN/1.73 SQ METERS THIS TEST SHOULD ONLY BE USED FOR PATIENTS 18 YEARS OF AGE AND OLDER. Globulin (S) [Mass/Vol] 3.1 g/dL Normal 1.5 - 3.8 [facility] Comment on above: Performed By: #### 2 90590 #### [facility],[address] [place] [address] Glucose [Mass/Vol] 91 mg/dL Normal 74 - 106 [facility] Comment on above: Performed By: #### 2 62115 #### [place] [id number] Potassium [Moles/Vol] 4.1 mmol/L Normal 3.5 - 5.1 [facility] Comment on above: Performed By: #### 2 10006 #### [address] [address] Protein [Mass/Vol] 6.5 g/dL Normal 6.4 - 8.2 [facility] Comment on above: Performed By: #### 2 24908 #### [facility],[address] [place] [address] 88916 Sodium [Moles/Vol] 138 mmol/L Normal 136 - 145 [facility] Comment on above: Performed By: #### 2 17384 #### [facility],[address] [place], [place] [address] Urea nitrogen [Mass/Vol] 12 mg/dL Normal 7 - 18 [facility] Comment on above: Performed By: #### 2 50470 #### [facility],[address] [place] [address] 52186 URINALYSISon 05-20-2023 Bilirubin Ql (U) Negative Normal NORMAL: NEGATIVE [facility] Comment on above: Performed By: #### 2 51719 #### [facility],[address] [place] [address] 07850 Clarity (U) clear Normal NORMAL: CLEAR [facility] Comment on above: Performed By: #### 2 86774 #### [facility],[address] [place] [address] 12133 Color (U) p.yel Normal NORMAL: YELLOW [facility] Comment on above: Performed By: #### 2 90287 #### [facility],[address] [place] [address] 38028 Glucose Ql (U) NORM Normal NORMAL: NORMAL [facility] Comment on above: Performed By: #### 2 78565 #### [facility],[address] [place] [address] 88792 Hemoglobin Ql (U) Negative Normal NORMAL: NEGATIVE [facility] Comment on above: Performed By: #### 2 02350 #### [facility],[address] [place] [address] 83833 Ketone Negative Normal NORMAL: NEGATIVE [facility] Comment on above: Performed By: #### 2 01442 #### [facility],[address] [place], [place] [id number] Leukocytes Negative Normal NORMAL: NEGATIVE [facility] Comment on above: Performed By: #### 2 09892 #### [facility],[address] [place], [place] [address] Nitrite Ql (U) Negative Normal NORMAL: NEGATIVE [facility] Comment on above: Performed By: #### 2 02321 #### [facility],[address] [place] [address] pH (U) 6 [pH] Normal NORMAL: 5.0-8.0 [facility] Comment on above: Performed By: #### 2 39748 #### [facility],[address] [place] [address] Protein Ql (U) Negative Normal NORMAL: NEGATIVE [facility] Comment on above: Performed By: #### 2 57713 #### [facility],[address] [place] [address] Sp H[place]sey 1.015 Normal NORMAL: 1.010-1.03 0 [facility] Comment on above: Performed By: #### 2 93471 #### [facility],[address] [place] [address] Specimen Type UNSPECIFIED Normal [facility] Comment on above: Performed By: #### 2 76096 #### [facility],[address] [place] [address] Urinalysis dipstick W Reflex Microscopic panel (U) NOT INDICATED Normal [facility] Comment on above: Performed By: #### 2 87089 #### [facility],[address] [place] [address] Urobilinog NORM Normal NORMAL: NORMAL [facility] Comment on above: Performed By: #### 2 06124 #### [facility],[address] [place] [address] Basic metabolic 2000 panelon 03-12-2023 Anion gap [Moles/Vol] 11 mmol/L Normal 9-18 [facility] Comment on above: Order Comment: Speci men Type: BLOOD SPECIMENOrdering Facility: [facility] Address: [address] [place] [address] Performed By: #### 1 9123-9, 13168-4 ####[facility] LABCLIA [id number] [place] [address] [place] Calcium [Mass/Vol] 9.2 mg/dL Normal 8.5-10.2 [facility] Comment on above: Order Comment: Speci men Type: BLOOD SPECIMENOrdering Facility: [facility] Address: [address] [place] [address] Performed By: #### 1 9123-9, 70403-6 ####[facility] LABCLIA [id number] [place] [address] [place] Chloride [Moles/Vol] 103 mmol/L Normal 97-105 [facility] Comment on above: Order Comment: Speci men Type: BLOOD SPECIMENOrdering Facility: [facility] Address: [address] [place], [place] [id number] Performed By: #### 1 9123-9, 70204-6 ####[facility] LABCLIA [id number] [place] [address] [place] CO2 [Moles/Vol] 24 mmol/L Normal 22-30 [facility] Comment on above: Order Comment: Speci men Type: BLOOD SPECIMENOrdering Facility: [facility] Address: [address] [place], [place] [id number] Performed By: #### 1 9123-9, 75207-1 ####[facility] LABCLIA [id number] [place] [id number] [place] Creatinine [Mass/Vol] 0.54 mg/dL Low 0.58-0.96 [facility] Comment on above: Order Comment: Speci men Type: BLOOD SPECIMENOrdering Facility: [facility] Address: [address] [place] [address] Performed By: #### 1 9123-9, 91741-7 ####[facility] LABCLIA [id number] [place] [address] [place] ESTIMATED GLOMERULAR FILTRATION RATE 122 mL/min/1.73m??? Normal >=60 [facility] Comment on above: Order Comment: Danish webber Type: BLOOD SPECIMENOrdering Facility: [facility] Address: [address] [address] Result Comment: Adali mated Glomerular Filtration Rate (eGFR) is calculated using the 2020 CKD-EPI creatinine equation. This equation utilizes serum creatinine, sex, and age as parameters. The creatinine assay has traceable calibration to isotope dilution-mass spectrometry. Refer to KDIGO guidelines for clinical interpretation. In patients with unstable renal function, e.g. those with acute kidney injury, the eGFR may not accurately reflect actual GFR. Performed By: #### 1 9123-9, 54700-4 ####[facility] LABCLIA [id number] [place] [address] [place] Glucose [Mass/Vol] 106 mg/dL High 74-99 [facility] Comment on above: Order Comment: Danish webber Type: BLOOD SPECIMENOrdering Facility: [facility] Address: [address] [place] [address] Result Comment: The [place] Diabetes Association (ADA) provides guidance for cutoff values for fasting glucose and random glucose. The ADA defines fasting as no caloric intake for at least 8 hours. Fasting plasma glucose results between 100 to 125 mg/dL indicate increased risk for diabetes (prediabetes). Fasting plasma glucose results greater than or equal to 126 mg/dL meet the criteria for diagnosis of diabetes. In the absence of unequivocal hyperglycemia, results should be confirmed by repeat testing. In a patient with classic symptoms of hyperglycemia or hyperglycemic crisis, random plasma glucose results greater than or equal to 200 mg/dL meet the criteria for diagnosis of diabetes. Reference: Standards of Medical Care in Diabetes 2016, [place] Diabetes Association. Diabetes Care. 2016.39(Suppl 1). Performed By: #### 1 9123-9, 73554-6 ####[facility] LABIA [id number] [place] [address] [place] Potassium [Moles/Vol] 3.5 mmol/L Low 3.7-5.1 [facility] Comment on above: Order Comment: Speci men Type: BLOOD SPECIMENOrdering Facility: [facility] Address: [address] Performed By: #### 1 9123-9, 99972-1 ####[facility] [id number] [place] [address] [place] Sodium [Moles/Vol] 138 mmol/L Normal 136-144 [facility] Comment on above: Order Comment: Speci men Type: BLOOD SPECIMENOrdering Facility: [facility] Address: [address] [address] Performed By: #### 1 9123-9, 41895-5 ####[facility] [id number] [place] [address] [place] Urea nitrogen [Mass/Vol] 6 mg/dL Low 7-21 [facility] Comment on above: Order Comment: Speci men Type: BLOOD SPECIMENOrdering Facility: [facility] Address: [address] Performed By: #### 1 9123-9, 73380-1 ####[facility] LABIA [id number] [place] [address] [place] CBC panel Auto (Bld)on 03-12 Erythrocyte distribution width (RBC) [Ratio] 13.0 % Normal 11.5-15.0 [facility] Comment on above: Order Comment: Speci men Type: BLOOD SPECIMENOrdering Facility: [facility] Address: [address] [address] Performed By: #### 5 8410-2 ####[facility] LABIA [id number] [place] [address] [place] Hematocrit (Bld) [Volume fraction] 39.4 % Normal 36.0-46.0 [facility] Comment on above: Order Comment: Speci men Type: BLOOD SPECIMENOrdering Facility: [facility] Address: [address] [place] [address] Performed By: #### 5 8410-2 ####[facility] LABIA [id number] [place] [address] [place] Hemoglobin (Bld) [Mass/Vol] 12.9 g/dL Normal 11.5-15.5 [facility] Comment on above: Order Comment: Speci men Type: BLOOD SPECIMENOrdering Facility: [facility] Address: [address] [place] [address] Performed By: #### 5 8410-2 ####[facility] [id number] [address] [place] MCH (RBC) [Entitic mass] 30.7 pg Normal 26.0-34.0 [facility] Comment on above: Order Comment: Speci men Type: BLOOD SPECIMENOrdering Facility: [facility] Address: [address] [place] [address] Performed By: #### 5 8410-2 ####[facility] [id number] [place] [address] [place] MCHC (RBC) [Mass/Vol] 32.7 g/dL Normal 30.5-36.0 [facility] Comment on above: Order Comment: Speci men Type: BLOOD SPECIMENOrdering Facility: [facility] Address: [address] [place] [address] Performed By: #### 5 8410-2 ####[facility] [id number] [address] [place] MCV (RBC) [Entitic vol] 93.8 fL Normal 80.0-100.0 [facility] Comment on above: Order Comment: Speci men Type: BLOOD SPECIMENOrdering Facility: [facility] Address: [address] [place], [place] [address] Performed By: #### 5 8410-2 ####[facility] LABIA [id number] [place] [address] [place] Nucleated RBC (Bld) [#/Vol] 10*3/uL Normal <0.01 [facility] Comment on above: Order Comment: Speci men Type: BLOOD SPECIMENOrdering Facility: [facility] Address: [address] [place], [place] [address] Performed By: #### 5 8410-2 ####[facility] LABIA [id number] [place] [address] [place] Platelet mean volume (Bld) [Entitic vol] 8.9 fL Low 9.0-12.7 [facility] Comment on above: Order Comment: Speci men Type: BLOOD SPECIMENOrdering Facility: [facility] Address: [address] [place], [place] [address] Performed By: #### 5 8410-2 ####[facility] LABIA [id number] [place] [address] [place] Platelets (Bld) [#/Vol] 242 10*3/uL Normal 150-400 [facility] Comment on above: Order Comment: Speci men Type: BLOOD SPECIMENOrdering Facility: [facility] Address: [address] [place], [place] [address] Performed By: #### 5 8410-2 ####[facility] LABIA [id number] [place] [address] [place] RBC (Bld) [#/Vol] 4.20 10*6/uL Normal 3.90-5.20 [facility] Comment on above: Order Comment: Speci men Type: BLOOD SPECIMENOrdering Facility: [facility] Address: [address] [address] Performed By: #### 5 8410-2 ####[facility] LABCLIA [id number] [place] [address] [place] WBC (Bld) [#/Vol] 7.98 10*3/uL Normal 3.70-11.00 [facility] Comment on above: Order Comment: Speci men Type: BLOOD SPECIMENOrdering Facility: [facility] Address: [address] [place] [address] Performed By: #### 5 8410-2 ####[facility] LABCLIA [id number] [address] [place] CNDSon 03-12-2023 CNDS HNO ID: [id number] Author: Dhruv Vaca MD Service: General Surgery Author Type: Resident Type: Discharge Summary Filed: 03/12/2023 12:35 PM Note Text: Attestation signed by Gemma Granado MD at 03/13/2023 8:45 AM Gemma Granado MD DISCHARGE SUMMARY PATIENT NAME: Mel Wall ADMISSION DATE: 03/10/2023 DISCHARGE DATE: 03/12/2023 ATTENDING PHYSICIAN: MD Gemma Dawson MD Code Status: Prior CONSULTING TEAMS DURING HOSPITALIZATION: None Treatment Team: Attending Provider: Julieta Andrade MD Primary Service: [facility] ACUTE CARE SURGERY (ACS) Physician Junior Financial Analyst: Josie Soria PA-C REASON FOR HOSPITALIZATION: Ventral hernia without obstruction or gangrene DIAGNOSIS: Principal Problem: Ventral hernia without obstruction or gangrene POA: Yes Resolved Problems: * No resolved hospital problems. * OPERATIONS DURING HOSPITALIZATION: None PROCEDURES DURING HOSPITALIZATION: IV Access, NGT placement, KUB No procedures performed HOSPITAL COURSE: Ms. Mel Wall is a 37 year old female with depression and history of duodenal switch procedure for bile reflux c/b large recurrent incisional hernia who presents to [facility] on 03/10/2023 as a direct admission from OSH with concerns of small bowel obstruction. Patient reports she was experiencing severe abdominal pain for the week prior to presentation associated with nausea and vomiting. Upon arrival, patient's abdomen soft, tender to palpation of the RLQ hernia, non-distended. A nasogastric tube was inserted for decompression and its correct position confirmed with KUB. Of note, no dilated bowel is noted on abdominal XR. She was admitted to the regular nursing floor. The remainder of her hospital course is as follows: 03/11: Small bowel follow thru showed contrast in the colon. NG removed and started on clear liquids 03/12: Tolerated clears and advanced to fulls. Continued having bowel function. Ok for discharge with outpatient follow up for hernia repair evaluation PATIENT CONDITION AT DISCHARGE: Stable DISCHARGE DISPOSITION: Home with Self Care WOUND/SURGICAL SITE CARE: None DIET: Resume pre-hospital diet ACTIVITY: Resume pre-hospital activity as tolerated ALLERGIES Allergen Reactions Toradol [Ketorolac] Hives, Shortness of Breath Zofran [Ondansetron* Hives, Shortness of Breath DISCHARGE MEDICATION: Current Discharge Medication List START taking these medications prochlorperazine (COMPAZINE) 10 mg Take 10 mg by mouth every 6 hours as needed. Qty: 16 tablet Refills: 0 oxyCODONE IR (ROXICODONE) 5 mg Take 5 mg by mouth every 6 hours as needed for pain. Qty: 12 tablet Refills: 0 Associated Diagnoses:Ventral hernia without obstruction or gangrene CONTINUE these medications which have NOT CHANGED FLUoxetine (PROzac) 80 mg Take 80 mg by mouth once daily. Take with 20 mg dose. Qty: 60 capsule Refills: 1 FLUoxetine (PROzac) 20 mg Take 20 mg by mouth once daily. Take with 2 capsules of the 40 mg dose. Qty: 30 capsule Refills: 1 busPIRone HCl 30 mg Take 30 mg by mouth twice daily. FUTURE APPOINTMENTS: No future appointments. SIGNATURE: Dhruv Vaca MD DATE: March 10, 2023 TIME: 9:30 AM Normal [facility] EMERGENCY REPORTon 3 EMERGENCY REPORT [facility] EMERGENCY ROOM REPORT NAME ACCOUNT SEX AGE ADMIT DISCHARGE PT MED. RECORD# NUMBER DATE DATE TYPE [facility] [id number] F 37 03/02/23 03/02/23 3 [place] [address] ROOM: ER DATE OF : 1985 DICTATING PHYSICIAN: Tom Niño ADDENDUM DIAGNOSTIC DATA: CT scan of the abdomen and pelvis showed a post-cholecystectomy. There was a large ventral hernia containing loops of small bowel and colon. No definite bowel obstruction. Bilateral renal cysts. Bilateral tubal ligation. No free air or free fluid in the abdomen or pelvis. Symmetric nephrograms without evidence of hydronephrosis. EMERGENCY DEPARTMENT COURSE AND TREATMENT: The patient was placed on K-Dur 20 mEq 1 p.o. b.i.d. dispense #20 with no refill; Bentyl 20 mg 1 every 6 hours as needed for abdominal pain, dispense #30 with no refill; Zofran ODT 4 mg 1 every 8 hours as needed for nausea and vomiting, dispense #15 with no refill. The patient is to follow up with Michelle Escobar NP with her surgeon's office at [address] [place] [address]. DIAGNOSIS: 1. Abdominal pain. 2. Large chronic ventral hernia. 3. Hypokalemia. PLAN/DISPOSITION: The patient was discharged in improved clinically stable condition. Nursing notes were reviewed. Dictated By: Tom Niño DO 03/02/23 07:57 JOB #: [id number] Transcribed By: avani 03/03/23 17:51 Electronically signed by: E-Sign: Dr. Tom Niño D.O. 03/12/23 07:42 Page 1 of 2 [facility] [place] Emergency Room Report Normal [facility] EMERGENCY REPORT [facility] EMERGENCY ROOM REPORT NAME ACCOUNT SEX AGE ADMIT DISCHARGE PT MED. RECORD# NUMBER DATE DATE TYPE [facility] [id number] F 37 03/02/23 03/02/23 [place] [address] ROOM: ER DATE OF : 1985 DICTATING PHYSICIAN: Tom Niño TIME SEEN: 0440 hours. HISTORY OF PRESENT ILLNESS: The patient is a 37-year-old white female with a history of a large ventral hernia, complaining of abdominal pain. She states on Tuesday, she started having a bowel movement and felt something pull in her abdomen at that time. She ended up calling the ambulance and went to [facility]. She did get a CT scan of the abdomen and pelvis, but she states did not show anything acute. She was discharged home. They also scanned her head at that time, because she had a headache. That also, per the patient, looked okay. Since then the patient continues to have diffuse generalized abdominal pain. She has been having some watery stools. Her most recent bowel movement was yesterday. She has had some vomiting off and on as well. She states she cannot keep anything down. She has noticed some blood in her bowel movements. She is presently down to 230 pounds. She sees a surgeon in [place] and they plan on doing her surgery if she can get her weight down to 215 pounds. She follows with Michelle Escobar in that office. 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 Their address is [address] [place] [address], [place], [place]. The patient presently rates her pain as a 10 on a severity scale of 1 to 10. PAST MEDICAL HISTORY: Anxiety, depression, GERD, torn meniscus in her right knee. She does have a history of this large ventral hernia that she has had for several years. She following with a surgeon in [place]. They will do not the surgical repair until she gets her weight down to 215 pounds. PAST SURGICAL HISTORY: Tonsillectomy and adenoidectomy, appendectomy, cholecystectomy. She has had multiple previous hernia surgeries in the past. and lysis of adhesions. ALLERGIES: Toradol and Zofran. SOCIAL HISTORY: She is a former smoker. She quite in 2017. She denies any alcohol or drug use. She lives alone. She does admit to using marijuana. REVIEW OF SYSTEMS: Denies any chest pain or shortness of breath. Denies any cough or sputum. Denies any wheezing. Does complain of diffuse generalized abdominal pain with associated nausea, vomiting, and diarrhea. Has complained of some hematochezia, but denies any melena. Denies any headache, numbness, Page 1 of 3 [facility] Report MEL WALL : 1985 unsteady gait or weakness. Denies any neck or back pain. Denies any joint pain, skin rashes or swelling. No hives, hay fever, or swollen glands. Further review of systems is negative. PHYSICAL EXAMINATION: Vital signs: Temperature 99.5, pulse 121, respiratory rate 22, blood pressure 165/75, pulse ox 97% on room air. Weight is 230 pounds. General: The patient is alert and oriented x3. Very anxious and tearful, but is pleasant and cooperative. HEENT: Head appears atraumatic. Pupils are equal and react to light. Red reflex is intact bilaterally. Extraocular muscles are intact. No conjunctival injection. No scleral icterus or lid edema. Nose exhibits no rhinorrhea or epistaxis. Mouth: Mucus membranes are moist. No pharyngeal erythema. Uvula is midline and elevates. Neck: Supple with trachea midline. No JVD or lymphadenopathy. No posterior cervical tenderness. No nuchal rigidity. Lungs: Clear to auscultation bilaterally. No adventitious sounds are noted. No accessory muscle use. CV: Heart rate and rhythm are regular. No murmur noted. Abdomen: Soft with a large ventral hernia noted. Normoactive bowel sounds are present x4 quadrants. She does exhibit some voluntary guarding with palpation of the abdomen but no involuntary guarding. No rebound. I do not note any abdominal distension. She just has a large soft ventral hernia that covers most of the width of the anterior abdominal wall. There is no skin redness or warmth to the site. No cyanosis. Back: No midline or paraspinal region tenderness. No increased paraspinal muscle rigidity. Negative Feliciano's sign. Extremities: No edema or cyanosis. Peripheral pulses are intact. No motor or sensory deficits are noted. Hand subpoena server is strong and symmetric. Skin: Warm and dry. No diaphoresis or rash. Neuro: The patient is alert and oriented x4. No motor or sensory deficits noted. Normal speech. Anxious affect. DIAGNOSTIC DATA: White count is 8.2, hemoglobin 12.7, hematocrit 38.6, platelet count 279,000. Sodium 143, potassium low at 2.9. I did order potassium 40 mEq p.o. Chloride is 104. CO2 is 21.9. BUN 12, creatinine 0.80. Glucose 125. AST 9, ALT 20, alk phos 44, total bilirubin 0.3. Lipase normal at 186. CRP is less than 0.20. Anion gap is 20. Troponin is normal at 5.8. Her EKG showed a sinus tachycardia at a rate of 126 beats per minute. (more content not included)... Normal [facility] Magnesium SerPl-mCncon 03-12 Magnesium [Mass/Vol] 1.9 mg/dL Normal 1.7-2.3 [facility] Comment on above: Order Comment: Speci men Type: BLOOD SPECIMENOrdering Facility: [facility] Address: [address] [place] [address] Performed By: #### 1 9123-9, 29129-6 ####[facility] LABCLIA [id number] [address] NURSING PROGon 03-12-2023 NURSING PROG HNO ID: [id number] Author: Martha Green, RN Service: ? Author Type: Registered Nurse Type: Nursing Progress Note Filed: 03/12/2023 5:50 AM Note Text: On initial assess, pt verbalized feeling better... but stomach is hurting. Denied any c/p or cough. C/O's a little headache. + nausea. Reviewed orders and night POC. IVF's infusing per order. IS given w/instructions and hourly use encouraged. Pt requesting IV dilaudid Q3H ATC and Oxy Q6h. Alternating reglan and compazine. Abd soft, tender @ hernia site. ++ BS x4 quads. + flatus. + small BM on Tuesday. Mack CL. Denies any pain/burning with urination. Up ad jacques independ w/o difficulty. Refusing IPC's despite indications and consequences of non-compliance... I know.. I know. VSS. Pt aware to call for any needs/chge/assist. 0530- pt continues to require very freq pain and nausea meds. Started menses this am- supplies given. + BM this am. Normal [facility] CONFIRM BLOOD TYPEon 023 ABO A Normal [facility] Comment on above: Order Comment: Speci men Type: BLOOD SPECIMENOrdering Facility: [facility] Address: [address] [address] Performed By: #### C ONABO ####[facility] MAIN BLOOD BANKCLIA [id number] [address] Rh Nom (Bld) Positive Normal [facility] Comment on above: Order Comment: Speci men Type: BLOOD SPECIMENOrdering Facility: [facility] Address: [address] [address] Performed By: #### C ONABO ####CC MAIN BLOOD BANKCLIA [id number] [address] [facility] XR SMALL BOWEL SERIESon XR SMALL BOWEL SERIES * * *Final Report* * * DATE OF EXAM: Mar 11 2023 12:43PM HGX [id number] - XR SMALL BOWEL SERIES / PROCEDURE REASON: Bowel obstruction suspected * * * * Physician Interpretation * * * * SMALL BOWEL SERIES CLINICAL INFORMATION: Bowel obstruction suspected. TECHNIQUE: TECHNIQUE: Overhead images were obtained after the NG tube instillation of contrast material. Contrast: OTHER: 150 ml of OMNIPAQUE 350 Fluoroscopy radiation summary: Fluoroscopy time: 0 (min:sec). Air kerma: 0.0 mGy. RESULT: - Postmaster Relief: NG tube tip in the stomach with side port in the distal esophagus. The patient declined tube advancement prior to contrast administration. No dilated bowel. - Maximum small bowel diameter: 2 cm (rounded to nearest 0.5 cm) - Fold thickness: Normal - Time to colon/stoma: 120 mins - Transition point: Not visualized IMPRESSION: NO BOWEL OBSTRUCTION. Automatic Door Mechanic: PSCB Transcribe Date/Time: Mar 11 2023 12:43P Dictated by : ROMAN MICHELLE MD This examination was interpreted and the report reviewed and electronically signed by: ROMAN MICHELLE MD on Mar 11 2023 12:44PM EST [id number] Normal [facility] Basic metabolic 2000 panelon 03-10-2023 Anion gap [Moles/Vol] 11 mmol/L Normal 9-18 [facility] Comment on above: Order Comment: Speci men Type: BLOOD SPECIMENOrdering Facility: [facility] Address: [address] [place], [place] [address] Performed By: #### 2 1-2, ####[facility] LABCLIA [id number] [place] [address] [place] Calcium [Mass/Vol] 9.1 mg/dL Normal 8.5-10.2 [facility] Comment on above: Order Comment: Speci men Type: BLOOD SPECIMENOrdering Facility: [facility] Address: [address] [place] [address] Performed By: #### 2 2, ####[facility] LABCLIA [id number] [place] [address] [place] Chloride [Moles/Vol] 103 mmol/L Normal 97-105 [facility] Comment on above: Order Comment: Speci men Type: BLOOD SPECIMENOrdering Facility: [facility] Address: [address] [place], [place] [address] Performed By: #### 2 4320-11, ####[facility] LABCLIA [id number] [place] [address] [place] CO2 [Moles/Vol] 24 mmol/L Normal 22-30 [facility] Comment on above: Order Comment: Speci men Type: BLOOD SPECIMENOrdering Facility: [facility] Address: [address] [place], [place] [address] Performed By: #### 2 2, ####[facility] LABCLIA [id number] [address] [address] [place] Creatinine [Mass/Vol] 0.58 mg/dL Normal 0.58-0.96 [facility] Comment on above: Order Comment: Speci men Type: BLOOD SPECIMENOrdering Facility: [facility] Address: [address] [id number] Performed By: #### 2 4321-2, ####[facility] LABCLIA [id number] [place] [address] [place] ESTIMATED GLOMERULAR FILTRATION RATE 120 mL/min/1.73m??? Normal >=60 [facility] Comment on above: Order Comment: Danish webber Type: BLOOD SPECIMENOrdering Facility: [facility] Address: [address] [address] Result Comment: Adali mated Glomerular Filtration Rate (eGFR) is calculated using the 2020 CKD-EPI creatinine equation. This equation utilizes serum creatinine, sex, and age as parameters. The creatinine assay has traceable calibration to isotope dilution-mass spectrometry. Refer to KDIGO guidelines for clinical interpretation. In patients with unstable renal function, e.g. those with acute kidney injury, the eGFR may not accurately reflect actual GFR. Performed By: #### 2 4321-2, ####[facility] LABCLIA [id number] [place] [address] [place] Glucose [Mass/Vol] 105 mg/dL High 74-99 [facility] Comment on above: Order Comment: Danish webber Type: BLOOD SPECIMENOrdering Facility: [facility] Address: [address] [place] [address] Result Comment: The [place] [employer] (ADA) provides guidance for cutoff values for fasting glucose and random glucose. The ADA defines fasting as no caloric intake for at least 8 hours. Fasting plasma glucose results between 100 to 125 mg/dL indicate increased risk for diabetes (prediabetes). Fasting plasma glucose results greater than or equal to 126 mg/dL meet the criteria for diagnosis of diabetes. In the absence of unequivocal hyperglycemia, results should be confirmed by repeat testing. In a patient with classic symptoms of hyperglycemia or hyperglycemic crisis, random plasma glucose results greater than or equal to 200 mg/dL meet the criteria for diagnosis of diabetes. Reference: Standards of Medical Care in Diabetes 2016, [place] [employer]. Diabetes Care. 2016.39(Suppl 1). Performed By: #### 2 4321-2, ####[facility] LABCLIA [id number] [place] [address] [place] Potassium [Moles/Vol] 4.0 mmol/L Normal 3.7-5.1 [facility] Comment on above: Order Comment: Speci men Type: BLOOD SPECIMENOrdering Facility: [facility] Address: [address] Performed By: #### 2 432-2, ####[facility] LABCLIA [id number] [place] [address] [place] Sodium [Moles/Vol] 138 mmol/L Normal 136-144 [facility] Comment on above: Order Comment: Speci men Type: BLOOD SPECIMENOrdering Facility: [facility] Address: [address] [place] [address] Performed By: #### 2 432-, ####[facility] LABCLIA [id number] [place] [address] [place] Urea nitrogen [Mass/Vol] 7 mg/dL Normal 7-21 [facility] Comment on above: Order Comment: Speci men Type: BLOOD SPECIMENOrdering Facility: [facility] Address: [address] Performed By: #### 2 4320-11, ####[facility] LABCLIA [id number] [place] [address] [place] CBC panel Auto (Bld)on 03-10 Erythrocyte distribution width (RBC) [Ratio] 13.1 % Normal 11.5-15.0 [facility] Comment on above: Order Comment: Speci men Type: BLOOD SPECIMENOrdering Facility: [facility] Address: [address] [address] Performed By: #### 5 8410-2 ####[facility] LABCLIA [id number] [place] [address] [place] Hematocrit (Bld) [Volume fraction] 38.9 % Normal 36.0-46.0 [facility] Comment on above: Order Comment: Speci men Type: BLOOD SPECIMENOrdering Facility: [facility] Address: [address] [place] [address] Performed By: #### 5 8410-2 ####[facility] LABIA [id number] [place] [address] [place] Hemoglobin (Bld) [Mass/Vol] 12.8 g/dL Normal 11.5-15.5 [facility] Comment on above: Order Comment: Speci men Type: BLOOD SPECIMENOrdering Facility: [facility] Address: [address] [place] [address] Performed By: #### 5 8410-2 ####[facility] [id number] [address] [place] MCH (RBC) [Entitic mass] 30.8 pg Normal 26.0-34.0 [facility] Comment on above: Order Comment: Speci men Type: BLOOD SPECIMENOrdering Facility: [facility] Address: [address] [place] [address] Performed By: #### 5 8410-2 ####[facility] [id number] [place] [address] [place] MCHC (RBC) [Mass/Vol] 32.9 g/dL Normal 30.5-36.0 [facility] Comment on above: Order Comment: Speci men Type: BLOOD SPECIMENOrdering Facility: [facility] Address: [address] [place] [address] Performed By: #### 5 8410-2 ####[facility] [id number] [place] [address] [place] MCV (RBC) [Entitic vol] 93.7 fL Normal 80.0-100.0 [facility] Comment on above: Order Comment: Speci men Type: BLOOD SPECIMENOrdering Facility: [facility] Address: [address] [place], [place] [address] Performed By: #### 5 8410-2 ####[facility] LABIA [id number] [place] [address] [place] Nucleated RBC (Bld) [#/Vol] 10*3/uL Normal <0.01 [facility] Comment on above: Order Comment: Speci men Type: BLOOD SPECIMENOrdering Facility: [facility] Address: [address] [place], [place] [address] Performed By: #### 5 8410-2 ####[facility] LABIA [id number] [place] [address] [place] Platelet mean volume (Bld) [Entitic vol] 8.9 fL Low 9.0-12.7 [facility] Comment on above: Order Comment: Speci men Type: BLOOD SPECIMENOrdering Facility: [facility] Address: [address] [place], [place] [address] Performed By: #### 5 8410-2 ####[facility] LABIA [id number] [place] [address] [place] Platelets (Bld) [#/Vol] 219 10*3/uL Normal 150-400 [facility] Comment on above: Order Comment: Speci men Type: BLOOD SPECIMENOrdering Facility: [facility] Address: [address] [place], [place] [address] Performed By: #### 5 8410-2 ####[facility] LABIA [id number] [place] [address] [place] RBC (Bld) [#/Vol] 4.15 10*6/uL Normal 3.90-5.20 [facility] Comment on above: Order Comment: Speci men Type: BLOOD SPECIMENOrdering Facility: [facility] Address: [facility] [place] [address] Performed By: #### 5 8410-2 ####[facility] [id number] [address] [address] [place] WBC (Bld) [#/Vol] 8.30 10*3/uL Normal 3.70-11.00 [facility] Comment on above: Order Comment: Speci men Type: BLOOD SPECIMENOrdering Facility: [facility] Address: [place] [address] Performed By: #### 5 8410-2 ####[facility] [id number] [address] [address] [place] EMERGENCY REPORTon 3 EMERGENCY REPORT [facility] EMERGENCY ROOM REPORT NAME ACCOUNT SEX AGE ADMIT DISCHARGE PT MED. RECORD# NUMBER DATE DATE TYPE DUKE [id number] F 37 03/07/23 03/07/23 3 [place] [id number] ROOM: ER DATE OF : 1985 DICTATING PHYSICIAN: Satish Charlton HISTORY OF PRESENT ILLNESS: The patient came in with a headache. She has had a headache for a week and abdominal pain. She feels like she is very stressed at work. She had this episode of head pain and needed a note for work and presents to the Emergency Department. She was seen here Tuesday for abdominal pain and a headache. She had a work-up. At this time, she is nontoxic-appearing. She really does not appear to be in any acute pain, but she says the pain is an 8/10. It sometimes is a 10/10. PAST MEDICAL HISTORY: She has a history of depression and anxiety. She says she has a history of migraines, but she has not seen anybody since she was a child. REVIEW OF SYSTEMS: Ten systems were reviewed and were negative except as mentioned above. PHYSICAL EXAMINATION: VITAL SIGNS: She is afebrile. Pulse is 78, respirations 18, blood pressure 139/88, and pulse oximetry 98% on room air. HEENT: Head is normocephalic, atraumatic. Eyes: Pupils are equal, round and reactive to light. Extraocular muscles are intact. Nares are patent. Throat has adequate oral moisture. Uvula is midline. NECK: Neck is supple without petechiae or rash. HEART: Heart rate is regular without murmur. S1 is equal to S2. No S3 or S4 appreciated. LUNGS: Lungs are clear to auscultation bilaterally. No rales, rhonchi or retractions. ABDOMEN: Abdomen is soft, nontender and nondistended. SKIN: Skin is warm and dry. NEUROLOGIC: The patient is neurovascularly intact. Cranial nerves II through XII are intact. Speech is slow. Gait and station are intact. No focal deficits. EMERGENCY DEPARTMENT COURSE AND TREATMENT: She does have head pain. I believe it is more of a chronic pain issue with her. I did tell her I would not give her Dilaudid. She is allergic to NSAIDs. I will dispense her 2 Percocet to go. I will also give her a note for work. I also gave her the number for [facility] for a neurologist. She can also follow up with her family doctor, Dr. Barron, and return if any problems or concerns. She is nontoxic at this time. DIAGNOSIS: Acute cephalgia. Page 1 of 2 MEL WALL Emergency Room Report MEL WALL : 1985 Dictated By: Satish Charlton DO 03/07/23 20:06 JOB #: [id number] Transcribed By: meli 03/08/23 17:03 Electronically signed by: AZEEM Charlton DO 03/10/23 20:41 Page 2 of 2 MEL WALL Emergency Room Report Normal [facility] HISTORY PHYSICALon 3 HISTORY PHYSICAL HNO ID: [id number] Author: Susan Cr MD Service: General Surgery Author Type: Resident Type: HANDP Filed: 03/10/2023 4:01 AM Note Text: Attestation signed by Julieta Andrade MD at 03/10/2023 9:22 AM Attending Note I evaluated the patient and personally participated in the solares components. I agree with the resident's findings and plan as documented and have discussed the case and management of the patient's care with the resident. Signature: Julieta Andrade MD Date: 03/10/2023 Time: 9:22 AM GENERAL SURGERY CONSULT NOTE HISTORY AND PHYSICAL EXAMINATION SERVICE DATE: 03/10/2023 SERVICE TIME: 0200 PRIMARY CARE PHYSICIAN: Jose Barron MD ASSESSMENT AND PLAN This is a 37 year old female with history of depression, duodenal switch procedure for bile reflux, large recurrent incisional hernia who presents as a direct admit from OSH for small bowel obstruction. No signs concerning for strangulation. Will attempt non-operative management with NG, NPO. Plan: No indication for urgent surgical intervention NG, NPO Serial abdominal exams Pain control with tylenol, oxy 5, dilaudid for breakthrough Continue home psych meds Susan Cr MD Acute Care Surgery (ACS) Day Floor Pager: [phone] Acute Care Surgery ([facility]) Day Consults Pager: [phone] On nights (6 pm to 6 am) and on Weekends/Holidays, please page the on-call pager: [phone] All plans preliminary pending discussion with senior resident and longwall headgate operator surgery staff SUBJECTIVE CHIEF COMPLAINT: painful hernia HPI: This is a 37 year old female with history of depression, duodenal switch procedure for bile reflux, large recurrent incisional hernia who presents as a direct admit from OSH for small bowel obstruction. She complains of severe abdominal pain for the last week in her hernia sac. The pain is colicky in nature and has progressively worsened. The patient reports associated nausea and vomiting. Her last BM was two days ago and she denies passing gas since. The patient has been seen previously for a large ventral hernia that she reportedly has had repaired 6 times, multiple times emergently. She also had a lap cholecystectomy in 2006. The hernia is soft. She refused NG placement at OSH. On review of imaging with radiology team her BP limb is visualized in there hernia sac but it is decompressed. PAST MEDICAL HISTORY: PAST MEDICAL HISTORY Diagnosis Date Abdominal wall mass of left lower quadrant 07/24/2013 Scar tissue with abscess. Resolved Anxiety Bipolar 1 disorder (HCC) Chronic pain syndrome 08/06/2019 Seeing [facility]: Dr. Moore Depression Headache(784.0) 10/18/2013 Obesity, Class III, BMI 40-49.9 (morbid obesity) (HCC) 01/24/2018 Panic disorder 11/05/[address] Dukes Social phobia 11/05/2014 Ventral hernia 12/21/2019 PAST SURGICAL HISTORY: PAST SURGICAL HISTORY Procedure Laterality Date APPENDECTOMY HX 2007 DELIVERY ONLY COLONOSCOPY 2007 EXC TUMOR SOFT TISSUE ABDOMINAL WALL SUBQ 3+CM 08/02/13 LLQ prior incision, stitch granuloma/chronic abscess INCISION AND DRAINAGE COMPLEX PO WOUND INFECTION 08/09/13 LAPS SURG CHOLECYSTECTOMY W/CHOLANGIOGRAPHY 03-08-07 PAST SURGICAL HISTORY OF hernia repair x6 PAST SURGICAL HISTORY OF 06/10/2019 Open lysis of adhesions JANEL-EN-Y W/GASTROENTEROS 10/23/2008 Division of the duodenum with Janel-en-Y duodenojejunostomy - op note describes a duodenal switch procedure TUBAL LIGATION, FAMILY HISTORY: FAMILY HISTORY Problem Relation Age of Onset Panic Disorder Mother Anxiety disorder Mother Bipolar disorder Mother Depression Mother Cervical Cancer Mother Cancer Mother ovarian cancer Coronary Artery Disease Father 53 Diabetes Father Hypertension Father Cancer Sister ovarian cancer Coronary Artery Disease Maternal Uncle 50's Cancer Maternal Grandmother ovarian cancer Osteoporosis Maternal Grandmother Cancer Paternal Grandmother ovarian cancer Diabetes Paternal Grandmother SOCIAL HISTORY: Social History Tobacco Use Smoking status: Former Packs/day: 0.50 Years: 1.00 Pack years: 0.50 Types: Cigarettes Quit date: 11/10/2011 Years since quittin.3 Smokeless tobacco: Never Substance Use Topics Alcohol use: Not Currently Drug use: Yes Types: Marijuana Comment: for anxiety and for sleep MEDICATIONS: Prior to Admission Medications FLUoxetine (PROZAC) 40 mg capsule, Take 2 capsules by mouth once daily. Take with 20 mg dose. (Patient taking differently: Take 80 mg by mouth once daily. Take with 1 capsule of fluoxetine 20mg for a total of 100mg daily in the morning), Disp: 60 capsule, Rfl: 1 FLUoxetine (PROZAC) 20 mg capsule, Take 1 capsule by mouth once daily. Take (more content not included)... Normal [facility] Magnesium SerPl-mCncon 03-10 Magnesium [Mass/Vol] 2.0 mg/dL Normal 1.7-2.3 [facility] Comment on above: Order Comment: Speci men Type: BLOOD SPECIMENOrdering Facility: [facility] Address: [address] [place] [address] Performed By: #### 2 4321-2, 12855-5 ####[facility] LABCLIA [id number] [address] NURSING PROGon 03-10-2023 NURSING PROG HNO ID: [id number] Author: Regis Sam RN Service: ? Author Type: Registered Nurse Type: Nursing Progress Note Filed: 03/10/2023 3:59 PM Note Text: Pt in 07/19 pain throat hurting doesn't like chloraseptic. Paged day team new orders received. Paged day team per pt request - wants something for anxiety and says her current nausea regimen isn't working and says has had good results from IV phenergan. Spoke with resident, he does not want any new orders at this time. Normal [facility] TYPE + SCREENon 03-10-2023 ABO A Normal [facility] Comment on above: Order Comment: Speci men Type: BLOOD SPECIMENOrdering Facility: [facility] Address: [address] [place] [address] Performed By: #### T SCR ####[facility] MAIN BLOOD BANKCLIA [id number] [address] HISTORICAL AB SCR STATUS Negative Normal [facility] Comment on above: Order Comment: Speci men Type: BLOOD SPECIMENOrdering Facility: [facility] Address: [address] [place] [address] Performed By: #### T SCR ####[facility] MAIN BLOOD BANKCLIA [id number] [address] Rh Nom (Bld) Positive Normal [facility] Comment on above: Order Comment: Speci men Type: BLOOD SPECIMENOrdering Facility: [facility] Address: [address] [place] [address] Performed By: #### T SCR ####[facility] MAIN BLOOD BANKCLIA [id number] [address] [place] TYPE AND SCREEN EXPIRATION 03/13/2023 23:59 Normal [facility] Comment on above: Order Comment: Speci men Type: BLOOD SPECIMENOrdering Facility: [facility] Address: [address] [place] [address] Performed By: #### T SCR ####CC MAIN BLOOD BANKCLIA [id number] [place] [id number] [facility] XR ABDOMEN 1V SUPINEon 03-10 XR ABDOMEN 1V SUPINE * * *Final Report* * * DATE OF EXAM: Mar 10 2023 2:10AM ALLAN [id number] - XR ABDOMEN 1V SUPINE / PROCEDURE REASON: Evaluate tube, line or lead position * * * * Physician Interpretation * * * * ABDOMEN, 1 VIEW 03/10/2023 CLINICAL INFORMATION: Evaluate tube, line or lead position. TECHNIQUE: Supine frontal view, 1 image(s) COMPARISON: CT abdomen/pelvis 03/09/2023 RESULT: See impression. IMPRESSION: Lines, tubes, and devices: NG/OG tube tip in the gastric body with subdiaphragmatic side port. Bowel: No dilated bowel in the imaged upper abdomen Other: Visualized lungs are grossly clear. Automatic Door Mechanic: PSCB Transcribe Date/Time: Mar 10 2023 7:43A Dictated by : TOM HUNG MD This examination was interpreted and the report reviewed and electronically signed by: TOM HUNG MD on Mar 10 2023 7:44AM EST [id number] Normal [facility] CBC AND DIFFERENTIALon 03-08 % AUTOMATED IMMATURE GRAN 0.5 % Normal 0.0 - 0.9 [facility] Comment on above: Result Comment: Ramya ture Granulocyte Count (IG) includes promyelocytes, myelocytes and metamyelocytes but does not include bands. Percent differential counts (%) should be interpreted in the context of the absolute cell counts (cells/L). Performed By: #### C BCDF #### [address] [address] Basophils (Bld) [#/Vol] 0.04 10*3/uL Normal 0.00 - 0.10 [facility] Comment on above: Performed By: #### C BCDF #### [address] [address] Basophils/100 WBC (Bld) 0.3 % Normal 0.0 - 2.0 [facility] Comment on above: Performed By: #### C BCDF #### [address] [address] Eosinophils (Bld) [#/Vol] 0.44 10*3/uL Normal 0.00 - 0.70 [facility] Comment on above: Performed By: #### C BCDF #### [address] [address] Eosinophils/100 WBC (Bld) 3.8 % Normal 0.0 - 6.0 [facility] Comment on above: Performed By: #### C BCDF #### [address] [address] Erythrocyte distribution width (RBC) [Ratio] 13.0 % Normal 11.5 - 14.5 [facility] Comment on above: Performed By: #### C BCDF #### [address] [address] Hematocrit (Bld) [Volume fraction] 38.4 % Normal 36.0 - 46.0 [facility] Comment on above: Performed By: #### C BCDF #### [address] [address] Hemoglobin (Bld) [Mass/Vol] 12.5 g/dL Normal 12.0 - 16.0 [facility] Comment on above: Performed By: #### C BCDF #### [address] [address] Lymphocytes (Bld) [#/Vol] 3.52 10*3/uL Normal 1.20 - 4.80 [facility] Comment on above: Performed By: #### C BCDF #### [address] [address] Lymphocytes/100 WBC (Bld) 30.1 % Normal 13.0 - 44.0 [facility] Comment on above: Performed By: #### C BCDF #### [address] [address] MCHC (RBC) [Mass/Vol] 32.6 g/dL Normal 32.0 - 36.0 [facility] Comment on above: Performed By: #### C BCDF #### [address] [address] MCV (RBC) [Entitic vol] 94 fL Normal 80 - 100 [facility] Comment on above: Performed By: #### C BCDF #### [address] [address] Monocytes (Bld) [#/Vol] 0.78 10*3/uL Normal 0.10 - 1.00 [facility] Comment on above: Performed By: #### C BCDF #### [address] [address] Monocytes/100 WBC (Bld) 6.7 % Normal 2.0 - 10.0 [facility] Comment on above: Performed By: #### C BCDF #### [address] [address] Neutrophils (Bld) [#/Vol] 6.87 10*3/uL Normal 1.20 - 7.70 [facility] Comment on above: Result Comment: Perc ent differential counts (%) should be interpreted in the context of the absolute cell counts (cells/L). Performed By: #### C BCDF #### [address] [address] Neutrophils/100 WBC (Bld) 58.6 % Normal 40.0 - 80.0 [facility] Comment on above: Performed By: #### C BCDF #### [address] [address] Platelets (Bld) [#/Vol] 298 10*3/uL Normal 150 - 450 [facility] Comment on above: Performed By: #### C BCDF #### [address] [address] RBC 4.07 x10E12/L Normal 4.00 - 5.20 [facility] Comment on above: Performed By: #### C BCDF #### [address] [address] WBC (Bld) [#/Vol] 11.7 10*3/uL High 4.4 - 11.3 [facility] Comment on above: Performed By: #### C BCDF #### [address] [address] COMPREHENSIVE PANELon 2022 Albumin [Mass/Vol] 4.3 g/dL Normal 3.4 - 5.0 [facility] Comment on above: Performed By: #### C MP #### [address] [address] ALP [Catalytic activity/Vol] 35 U/L Normal 33 - 110 [facility] Comment on above: Performed By: #### C MP #### [address] [address] ALT [Catalytic activity/Vol] 12 U/L Normal 7 - 45 [facility] Comment on above: Result Comment: Shelbie ents treated with Sulfasalazine may generate falsely decreased results for ALT. Performed By: #### C MP #### [address] [address] Anion gap [Moles/Vol] 11 mmol/L Normal 10 - 20 [facility] Comment on above: Performed By: #### C MP #### [address] [address] AST [Catalytic activity/Vol] 8 U/L Low 9 - 39 [facility] Comment on above: Performed By: #### C MP #### [address] [address] Bilirubin [Mass/Vol] 0.2 mg/dL Normal 0.0 - 1.2 [facility] Comment on above: Performed By: #### C MP #### [address] [address] Calcium [Mass/Vol] 9.2 mg/dL Normal 8.6 - 10.3 [facility] Comment on above: Performed By: #### C MP #### [address] [address] Chloride [Moles/Vol] 106 mmol/L Normal 98 - 107 [facility] Comment on above: Performed By: #### C MP #### [address] [address] Creatinine [Mass/Vol] 0.65 mg/dL Normal 0.50 - 1.05 [facility] Comment on above: Performed By: #### C MP #### [address] [address] eGFR FEMALE >90 Normal >90 [facility] Comment on above: Result Comment: CALC ULATIONS OF ESTIMATED GFR ARE PERFORMED USING THE 2020 CKD-EPI STUDY REFIT EQUATION WITHOUT THE RACE VARIABLE FOR THE IDMS-TRACEABLE CREATININE METHODS. https://jasn.asnjournals.org/content/early//ASN.343578 5359 Performed By: #### C MP #### [address] [address] Glucose [Mass/Vol] 92 mg/dL Normal 74 - 99 [facility] Comment on above: Performed By: #### C MP #### [address] [address] HCO3 (Bld) [Moles/Vol] 24 mmol/L Normal 21 - 32 [facility] Comment on above: Performed By: #### C MP #### [address] [address] Potassium [Moles/Vol] 3.9 mmol/L Normal 3.5 - 5.3 [facility] Comment on above: Performed By: #### C MP #### [address] [place] [address] Protein [Mass/Vol] 6.5 g/dL Normal 6.4 - 8.2 [facility] Comment on above: Performed By: #### C MP #### [address] [address] Sodium [Moles/Vol] 137 mmol/L Normal 136 - 145 [facility] Comment on above: Performed By: #### C MP #### [address] [address] Urea nitrogen [Mass/Vol] 13 mg/dL Normal 6 - 23 [facility] Comment on above: Performed By: #### C MP #### [address] [address] [address] ABDOMEN AND PELVIS W IV C ONTRASTon 03-08-2023 CT ABDOMEN AND PELVIS W IV CONTRAST Patient Name: MEL WALL STUDY: CT ABDOMEN AND PELVIS W IV CONTRAST; 03/08/2023 1:10 am INDICATION: abdominal pain/vomiting . COMPARISON: CT abdomen pelvis 08/17/2020 ACCESSION NUMBER(S): [id number] ORDERING CLINICIAN: DONALD COTTER TECHNIQUE: Axial CT images of the abdomen and pelvis with coronal and sagittal reconstructed images obtained after intravenous administration of 90 mL Omnipaque 350 FINDINGS: LOWER CHEST: Dependent bibasilar atelectasis. ABDOMEN: LIVER: Normal attenuation and contour. BILE DUCTS: Normal caliber. GALLBLADDER: Surgically absent. PORTAL VEIN: Patent SPLEEN: Unremarkable. PANCREAS: Unremarkable. ADRENALS: Unremarkable. KIDNEYS, URETERS and URINARY BLADDER: Symmetric renal enhancement. No hydronephrosis or perinephric fluid collection. 1.5 cm hypodensity in the mid aspect of the right kidney measures simple fluid attenuation, most compatible with a simple cyst. Bladder is within normal limits REPRODUCTIVE ORGANS: Tubal ligation clips are present. ABDOMINAL WALL: Large ventral abdominal wall hernia defect containing numerous loops of both small and large bowel. PERITONEUM: No ascites, free air or fluid collection. BOWEL: Mild wall thickening of the sigmoid colon with adjacent stranding. There are numerous loops of both small and large bowel extending into the large ventral abdominal wall hernia defect. There is a portion of small bowel in the hernia sac measuring up to 3.2 cm. There is, however, gradual tapering without evidence of a high-grade transition point. There are sutures throughout numerous loops of small bowel. The appendix is not definitively visualized without focal pericecal inflammatory stranding. VESSELS: No aortic aneurysm. RETROPERITONEUM: No pathologically enlarged retroperitoneal lymph nodes. BONES: No acute osseous abnormality. IMPRESSION: Large ventral abdominal wall hernia defect containing numerous loops of both small and large bowel. There is a focal area of small bowel within the hernia sac which is mildly dilated measuring up to 3.2 cm. There is, however, gradual tapering with no evidence of a high-grade transition point. Mild wall thickening of the sigmoid colon with adjacent stranding. Findings may be seen in the setting of colitis. Electronically signed by: GEOFFREY AUGUSTINE MD [facility] CT HEAD WO CONTRASTon 2022 CT HEAD WO CONTRAST Patient Name: MEL WALL STUDY: CT HEAD WO CONTRAST; 03/08/2023 1:10 am INDICATION: headache/vomiting . COMPARISON: None. ACCESSION NUMBER(S): [id number] ORDERING CLINICIAN: DONALD COTTER TECHNIQUE: Axial noncontrast CT images of the head with coronal and sagittal reconstructions. FINDINGS: EXTRACRANIAL SOFT TISSUES: Unremarkable. CALVARIUM: No depressed skull fracture. No destructive osseous lesion. PARANASAL SINUSES/MASTOIDS: The visualized paranasal sinuses and mastoid air cells are aerated. HEMORRHAGE: No acute intracranial hemorrhage. BRAIN PARENCHYMA: Zheng-white matter interfaces are preserved. No mass effect or midline shift. VENTRICLES and EXTRA-AXIAL SPACES: Normal size. OTHER FINDINGS: None. IMPRESSION: No acute intracranial hemorrhage, mass effect or midline shift. Electronically signed by: GEOFFREY AUGUSTINE MD [facility] LACTATEon 03-08-2023 Lactate [Moles/Vol] 1.0 mmol/L Normal 0.4 - 2.0 [facility] Comment on above: Result Comment: Alejandrina puncture immediately after or during the administration of Metamizole may lead to falsely low results. Testing should be performed immediately prior to Metamizole dosing. Performed By: #### L ACT #### [address] [place] [address] LIPASEon 03-08-2023 Lipase [Catalytic activity/Vol] 31 U/L Normal 9 - 82 [facility] Comment on above: Result Comment: Alejandrina puncture immediately after or during the administration of Metamizole may lead to falsely low results. Testing should be performed immediately prior to Metamizole dosing. T-ipbsah-w-benzoquinone imine (metabolite of Acetaminophen) will generate erroneously low results in samples for patients that have taken toxic doses of acetaminophen. Performed By: #### L IPAS #### [address] [place] [address] Provider Note - ED v3 02-09 Provider Note - ED v3 Provider Note: Chart Review: ED NOTES ED NOTES: Chief complaint: Abdominal pain History of chief complaint: Patient presents to the emergency department secondary to intractable abdominal pain with vomiting and associated headache. This is a chronic and ongoing issue for the patient for years due to a ventral hernia. The patient according to the EMR has needed to lose a significant amount of weight before general surgery here would consider operating on her. She is currently followed by a surgeon at [facility] who is encouraging her to lose additional weight before they will consider operating on her hernia. The patient states that she has been at multiple other emergency room's this past week due to uncontrolled pain with vomiting. Also has once again associated headache with her symptoms. Allergies: Reviewed Home medications: Reviewed Medical history: Reviewed Surgical history: Reviewed Family history: Reviewed Social history: Reviewed Review of systems: I have reviewed constitutional HEENT cardiovascular pulmonary gastrointestinal genitourinary dermatologic psychiatric musculoskeletal neurologic and except where mentioned above all other systems are noted to be unremarkable. Nursing notes have been reviewed Physical examination: General appearance: Patient is sitting up in bed crying and retching. HEENT: Normocephalic and atraumatic. Mucous membranes are moist. No scleral icterus. Neck: Trachea is midline Cardiac: Regular sinus rate and rhythm. No murmurs. Lungs: Clear to auscultation bilaterally without wheezing Abdomen: Soft, obese, noted large right sided ventral hernia that is not rigid. Generalized tenderness throughout. Musculoskeletal: No gross bony deformity identified Neurologic: Moving all 4 extremities independently. Cranial nerves II through XII are formally tested by myself noted to be grossly intact Dermatologic: No jaundice or pallor Psychiatric: Awake, alert, and oriented Clinical course: Twelve-lead EKG was interpreted by myself and this was noted to contribute directly to patient care. Study reveals a normal sinus rhythm at 76 bpm, normal axis, early R wave progression, no acute ischemic changes, no S1 Q3 T3 is identified Medical decision making: Patient was noted to have some improvement of her pain and vomiting after being medicated here. I reviewed the patient's CAT scan results and I do not feel colitis is of concern based on the clinical history which appears to be chronic and recurrent. Given that there is no evidence of obstruction or other acute process I feel she can be discharged at this time. Assessment: #1 chronic abdominal pain #2 chronic ventral hernia Plan: Patient will be discharged. She has Phenergan tablets and suppositories at home. She will be referred to primary care and pain management. Instructed to follow-up with her established surgeon at [facility]. Return for any other ongoing concerns HISTORY OF PRESENTING ILLNESS MEL is a 37 year old Female and was seen by me at 07-Mar-2023 23:44 for a chief complaint of headache (Patient ambulatory to ED with c/o headache, onset 1 week ago. Reports sudden onset lightning bolt sharp pain in head while having bowel movement 1 week ago. States evaluated at [facility] ED [address] scan of head and abdomen, discharged home. Evaluated at [place] ER 2 days later and again discharged home. Again evaluated at [place] today, denies any testing. + nausea with vomiting undigested food from a few days ago Denies blurred vision or LOC. Hx large abdominal hernia.) . Triage Information: Most recent Vital Sign Value Date Temp (F): 97.9 03-07-2023 23:44 Temp (C): 36.6 03-07-2023 23:44 Heart Rate (beats/min): 83 03-07-2023 23:44 Respirations (breaths/min): 18 03-07-2023 23:44 SpO2 (%): 97 03-07-2023 23:44 BP Systolic (mm Hg): 129 03-07-2023 23:44 BP Diastolic (mm Hg): 60 03-07-2023 23:44 PAST MEDICAL HISTORY ALLERGIES/INTOLERANCES: Allergy Allergen: Toradol Type: Drug Reaction: Hives/Urticaria (Severe) Allergen: Zofran Type: Drug Reaction: Resp Distress (Severe) HEALTH HISTORY: Social History Name:Status post repair of ventral hernia Code:Z98.890 Name:Status post repair of ventral hernia Code:Z98.890 OUTPATIENT MEDICATIONS: Home Medications Review Status for Reconciliation: Incomplete Med Status: Incomplete Medication History Drug Name: albuterol 90 mcg/inh inhalation aerosol Instructions: 2 puff(s) inhaled every 4 hours, As Needed Drug Name: acetaminophen 500 mg oral tablet Instructions: 2 tab(s) orally every 6 hours, As Needed Drug Name: FLUoxetine 20 mg oral capsule Instructions: 2 cap(s) orally once a day (in the morning) Drug Name: hydrOXYzine hydrochloride 50 mg oral tablet Instructions: 1 tab(s) orally 4 times a day, As Needed - (more content not included)... [facility] Risk Screen - Adult Emergenc yon 03-08-2023 Risk Screen - Adult Emergency Preferred Language: Preferred Language: Preferred Language for Discussing Health Care (patient/designee)Somali Patient Preferred Pharmacy: Patient Preferred Pharmacy Statement: I have reviewed and updated the patient's preferred pharmacy selection for today's visit. Advanced Directives: Advance Directive/DNRno Family Violence Adult: Abuse Screen: Are you or have you been threatened or abused physically, emotionally, or sexually by anyoneno Learning Assessment (Patient): Learning Assessment (Patient): Patient is Able to be Assessed for Learningyes Factors Influencing Readiness to Learnpain Factors that Impact Ability to Learnnone Devices/Methods Used to Communicatenone Learning Preferencesverbal instruction; written material Cultural Considerationsnone Developmental Considerationsnone Adventism Considerationsnone Learning Assessment (Other Learner): Learning Assessment (Other Learner): Other learner availableno Pressure Injury/TB/Substance: Pressure Injury: Do you have a coughno Smoking Statusformer smoker Alcohol Usedenies Drug Useoccasionally Substance CommentDrug use: marijuana occasionally Admission Risk Screen: Significant IndicatorsComplete CAGE: CAGE: Is this an injured patient at a Trauma Center ([facility]/[place]): no Electronic Signatures: Yesenia Espinosa (MARIE) (Signed 07-Mar-2023 23:56) Authored: Preferred Language, Patient Preferred Pharmacy, Advanced Directives, Family Violence Adult, Learning Assessment (Patient), Learning Assessment (Other Learner), Pressure Injury/TB/Substance, Pressure Injury, CAGE Last Updated: 07-Mar-2023 23:56 by Yesenia Espinosa (MARIE) Normal [facility] TROPONIN I, HIGH SENSITIVITY on 03-08-2023 TROPONIN I, HIGH SENSITIVITY <3 Normal 0 - 13 [facility] Comment on above: Result Comment: . Less than 99th percentile of normal range cutoff- Female and children under 18 years old <14 ng/L; Male <21 ng/L: Negative Repeat testing should be performed if clinically indicated. . Female and children under 18 years old 14-50 ng/L; Male 21-50 ng/L: Consistent with possible cardiac damage and possible increased clinical risk. Serial measurements may help to assess extent of myocardial damage. . >50 ng/L: Consistent with cardiac damage, increased clinical risk and myocardial infarction. Serial measurements may help assess extent of myocardial damage. . NOTE: Children less than 1 year old may have higher baseline troponin levels and results should be interpreted in conjunction with the overall clinical context. . NOTE: Troponin I testing is performed using a different testing methodology at [facility] than at other [facility] [place] [facility]. Direct result comparisons should only be made within the same method. Performed By: #### T [facility] #### [id number] TROPONIN I, HIGH SENSITIVITY <3 Normal 0 - 13 [facility] Comment on above: Result Comment: . Less than 99th percentile of normal range cutoff- Female and children under 18 years old <14 ng/L; Male <21 ng/L: Negative Repeat testing should be performed if clinically indicated. . Female and children under 18 years old 14-50 ng/L; Male 21-50 ng/L: Consistent with possible cardiac damage and possible increased clinical risk. Serial measurements may help to assess extent of myocardial damage. . >50 ng/L: Consistent with cardiac damage, increased clinical risk and myocardial infarction. Serial measurements may help assess extent of myocardial damage. . NOTE: Children less than 1 year old may have higher baseline troponin levels and results should be interpreted in conjunction with the overall clinical context. . NOTE: Troponin I testing is performed using a different testing methodology at [facility] than at other [facility] [place] [facility]. Direct result comparisons should only be made within the same method. Performed By: #### T [facility] #### [address] [address] Triage - EDon 03-08-2023 Triage - ED Quick Triage: Are You no Have You Given In The Last 6 Weeksno Are You Currently Breastfeedingno Chart Review: PRIMARY ASSESSMENT MEL WALL's primary assessment is Within Defined Limits. The airway is open and patent. Breathing spontaneous and unlabored with clear breath sounds bilaterally. Circulation is normal with good peripheral pulses. Skin is warm and dry and color is normal for race. ARRIVAL INFORMATION Means of Arrival: Ambulatory Mode of Arrival: private vehicle Arrival From: home Accompanied By: self Language: Spoken Language Preferred: Somali Reading Language Preferred: Somali Present on Arrival: Device Present on Arrival to ED: no CHIEF COMPLAINT MEL WALL is a Female patient with a chief complaint of headache (Patient ambulatory to ED with c/o headache, onset 1 week ago. Reports sudden onset lightning bolt sharp pain in head while having bowel movement 1 week ago. States evaluated at [facility] ED [address] scan of head and abdomen, discharged home. Evaluated at [place] ER 2 days later and again discharged home. Again evaluated at [place] today, denies any testing. + nausea with vomiting undigested food from a few days ago Denies blurred vision or LOC. Hx large abdominal hernia.). Triage Date/Time: 07-Mar-2023 23:43 NASREEN: 3 Pain Rating (0-10): 7 = Severe Pain location: headache Vital Signs: Temperature: 97.9F ( 36.6C) taken temporal Blood Pressure: 129/60 Mean: 78 Heart Rate: 83 Respiratory Rate: 18 Pulse Oximetry: 97% on room air, no respiratory support. Height: 5 feet 5.00 inches. 165.1 CM Weight: 225.5 pounds. Calculated 102.3 kg. (stated) Calculated BMI (kg/m2): 37.530 Calculated BSA (m2) 2.17 Tommy Coma Scale: Best Eye Response: (E4) spontaneous Best Motor Response: (M6) obeys commands Best Verbal Response: (V5) oriented Tommy Score: 15 Cough lasting greater than 3 weeks: no Patient immunocompromised related to: N/A Allergies: yes Last menstrual period: 17-Feb-2023 Patient has homicidal thoughts: no Symptom Notes: . Symptoms Are POSITIVE For: nausea and photophobia. Symptoms Are Negative For: blurred vision, eye pain and facial pain. Last Known Well: known Time Last Known Well Date/Time: 28-Feb-2023 Risk Screens Suicide Risk Screen In the Past Month: Have you wished you were or wished you could go to sleep and not wake up no In the Past Month: Have you had any actual thoughts of killing yourself no In Your Lifetime: Have you ever done anything, started to do anything, or prepared to do anything to end your life no Parsons Fall Scale Screening Has the patient fallen before (or is the patient in the ED as a result of a fall) has not had a fall Does the patient have an impaired gait does not have impaired gait Is the patient cognitively impaired not cognitively impaired Interventions: Parsons Fall Interventions: LOW INTERVENTIONS: *patient oriented to surroundings and call system, * patient/family falls education completed and documented, *patients fall status communicated during bedside handoff, *whiteboard updated, *mode of toileting discussed with patient, *bed in low position with brakes locked, *call light in reach, * non-skid footwear TRAVEL HISTORY Travel History Coronavirus Screening: no exposure or symptoms Travel Exposure History: NO travel to International locations in the past 30 days PAIN Pain Scale Used: JACQUELINE Pain Assessment: sharp Pain Rating (0-10): 7 = Severe Past Medical History: Past Medical History Reviewedyes Electronic Signatures: Yesenia Espinosa (MARIE) (Signed 07-Mar-2023 23:56) Authored: Quick Triage, Risk Screens, Pain, Arrival, ABCD, Travel History, Chart Review, Scores, Past Medical History Last Updated: 07-Mar-2023 23:56 by Yesenia Espinosa (MARIE) Normal [facility] URINALYSISon 03-08-2023 Appearance (U) HAZY Normal CLEAR [facility] Comment on above: Performed By: #### U A ####[address] [address] Bilirubin Ql (U) Negative Normal NEGATIVE [facility] Comment on above: Performed By: #### U A ####[address] [address] Color (U) Yellow Normal STRAW,YELL OW [facility] Comment on above: Performed By: #### U A ####[address] [address] Glucose Ql (U) Negative Normal NEGATIVE [facility] Comment on above: Performed By: #### U A ####[address] [address] Hemoglobin Ql (U) Negative Normal NEGATIVE [facility] Comment on above: Performed By: #### U A ####[address] [address] Ketones Ql (U) Negative Normal NEGATIVE [facility] Comment on above: Performed By: #### U A ####[address] [address] Leukocyte esterase Test strip Ql (U) Negative Normal NEGATIVE [facility] Comment on above: Performed By: #### U A ####[address] [address] Nitrite Ql (U) Negative Normal NEGATIVE [facility] Comment on above: Performed By: #### U A ####[address] [address] pH (U) 5.0 [pH] Normal 5.0 - 8.0 [facility] Comment on above: Performed By: #### U A ####[address] [address] Protein Ql (U) Negative Normal NEGATIVE [facility] Comment on above: Performed By: #### U A ####[address] [address] Specific gravity (U) [Rel density] 1.028 Normal 1.005 - 1.035 [facility] Comment on above: Performed By: #### U A ####[address] [address] Urobilinogen (U) [Mass/Vol] mg/dL Normal 0.0 - 1.9 [facility] Comment on above: Performed By: #### U A ####[address] [address] C-REACTIVE PROTEINon 03-02- 023 CRP [Mass/Vol] mg/L Normal 0.00 - 0.90 [facility] Comment on above: Performed By: #### 2 68119 #### [facility],[address] [place], [place] [id number] CBC + DIFFon 03-02-2023 Baso # 0.10 x10EE3/UL Normal 0.00 - 0.10 [facility] Comment on above: Performed By: #### 2 52112 #### [facility],[address] [place] [address] Basophils/100 WBC (Bld) 0.7 % Normal 0.0 - 2.0 [facility] Comment on above: Performed By: #### 2 14665 #### [facility],[address] [place] [address] CBC + DIFF Normal [facility] Comment on above: Result Comment: CBC- COMPLETE BLOOD COUNT Performed By: #### 2 35146 #### [facility],[address] [place] [address] EO # 0.20 x10EE3/UL Normal 0.00 - 0.50 [facility] Comment on above: Performed By: #### 2 79171 #### [facility],[address] [place] [address] Eosinophils/100 WBC (Bld) 2.5 % Normal 0.0 - 7.0 [facility] Comment on above: Performed By: #### 2 68643 #### [facility],[address] [place], [place] [id number] Erythrocyte distribution width (RBC) [Ratio] 13.3 % Normal 12.0 - 15.6 [facility] Comment on above: Performed By: #### 2 34180 #### [facility],[address] [place], [place] [id number] Hematocrit (Bld) [Volume fraction] 38.6 % Normal 34.0 - 46.0 [facility] Comment on above: Performed By: #### 2 51091 #### [facility],[address] [place] [address] Hemoglobin (Bld) [Mass/Vol] 12.7 g/dL Normal 12.0 - 16.0 [facility] Comment on above: Performed By: #### 2 71077 #### [facility],[address] [place] [address] Lymph # 2.80 x10EE3/UL Normal 0.80 - 2.80 [facility] Comment on above: Performed By: #### 2 25695 #### [facility],[address] [place] [address] Lymphocytes/100 WBC (Bld) 34.0 % Normal 20.0 - 45.0 [facility] Comment on above: Performed By: #### 2 24457 #### [facility],[address] [place] [address] MANUAL DIFF N/A Normal [facility] Comment on above: Performed By: #### 2 94907 #### [facility],[address] [place] [address] MCH (RBC) [Entitic mass] 30 pg Normal 27 - 33 [facility] Comment on above: Performed By: #### 2 09243 #### [facility],[address] [place] [address] MCHC 33 X10 3 Normal 32 - 36 [facility] Comment on above: Performed By: #### 2 41841 #### [facility],[address] [place] [address] MCV (RBC) [Entitic vol] 93 fL Normal 80 - 99 [facility] Comment on above: Performed By: #### 2 41824 #### [facility],[address] [place] [address] Charlton # 0.40 x10EE3/UL Normal 0.20 - 1.00 [facility] Comment on above: Performed By: #### 2 47523 #### [facility],[address] [place] [address] MONOS % 5.4 % Normal 0.0 - 10.0 [facility] Comment on above: Performed By: #### 2 88346 #### [facility],[address] [place] [address] Morphology Juve (Bld) [Interp] N/A Normal [facility] Comment on above: Performed By: #### 2 64328 #### [facility],[address] [place] [address] Neut # 4.70 x10EE3/UL Normal 1.50 - 7.10 [facility] Comment on above: Performed By: #### 2 77859 #### [facility],[address] [place] [address] Neutrophils/100 WBC (Bld) 57.4 % Normal 46.0 - 76.0 [facility] Comment on above: Performed By: #### 2 24638 #### [facility],[address] [place] [address] PLATELET 279 x10EE3/UL Normal 150 - 450 [facility] Comment on above: Performed By: #### 2 23276 #### [facility],[address] [place] [address] Platelet mean volume (Bld) [Entitic vol] 7.2 fL Normal 6.6 - 10.5 [facility] Comment on above: Result Comment: AUTO MATED DIFFERENTIAL Performed By: #### 2 09764 #### [facility],[address] [place] [address] RBC 4.17 x 10EE6/UL Normal 4.10 - 5.30 [facility] Comment on above: Performed By: #### 2 75549 #### [facility],[address] [place] [address] WBC 8.2 x 10EE3/UL Normal 4.5 - 10.8 [facility] Comment on above: Performed By: #### 2 57958 #### [facility],[address] [place] [address] CMP with eGFRon 03-02-2023 AGE 37 years Normal [facility] Comment on above: Performed By: #### 2 52618 #### [facility],[address] [place] [address] Albumin [Mass/Vol] 3.8 g/dL Normal 3.4 - 5.0 [facility] Comment on above: Performed By: #### 2 24655 #### [facility],[address] [place] [address] Albumin/Globulin [Mass ratio] 1.5 {ratio} Normal 0.9 - 1.6 [facility] Comment on above: Performed By: #### 2 94996 #### [facility],[address] [place] [address] ALK PHOS 44 U/L Low 46 - 116 [facility] Comment on above: Performed By: #### 2 06404 #### [facility],[address] [place] [address] ALT [Catalytic activity/Vol] 20 U/L Normal 14 - 59 [facility] [facility] Comment on above: Performed By: #### 2 01812 #### [facility],[address] [place] [address] 65486 Anion gap [Moles/Vol] 20 mmol/L Normal 10 - 20 [facility] Comment on above: Performed By: #### 2 97486 #### [facility],[address] [place] [address] 34696 AST [Catalytic activity/Vol] 9 U/L Low 13 - 39 [facility] Comment on above: Performed By: #### 2 18473 #### [facility],[address] [place] [address] 24019 B/C RATIO 15 ratio Normal 0 - 30 [facility] Comment on above: Performed By: #### 2 70395 #### [facility],[address] [place] [address] 85311 Bilirubin [Mass/Vol] 0.3 mg/dL Normal 0.2 - 1.0 [facility] Comment on above: Performed By: #### 2 74937 #### [facility],[address] [place], [place] [id number] Calcium [Mass/Vol] 8.6 mg/dL Normal 8.5 - 10.1 [facility] Comment on above: Performed By: #### 2 09395 #### [facility],[address] [place], [place] [id number] Chloride [Moles/Vol] 104 mmol/L Normal 98 - 107 [facility] Comment on above: Performed By: #### 2 79311 #### [facility],[address] [place] [address] CMP with eGFR Normal [facility] Comment on above: Result Comment: COMP REHENSIVE METABOLIC PANEL Performed By: #### 2 96250 #### [facility],[address] [place] [address] CO2 [Moles/Vol] 21.9 mmol/L Normal 21.0 - 32.0 [facility] Comment on above: Performed By: #### 2 77581 #### [facility],[address] [place] [address] Creatinine [Mass/Vol] 0.80 mg/dL Normal 0.55 - 1.02 [facility] Comment on above: Performed By: #### 2 72669 #### [facility],[address] [place] [address] GFR/1.73 sq M.predicted among non-blacks MDRD (S/P/Bld) [Vol rate/Area] mL/min/{1.73_m2} Normal 60 - 999 [facility] Comment on above: Performed By: #### 2 87852 #### [facility],[address] [place] [address] Result Comment: ACCO RDING TO THE NATIONAL KIDNEY DISEASE EDUCATION PROGRAM(NKDE), A NORMAL eGFR IS A VALUE GREATER THAN OR EQUAL TO 60 ML/MIN/1.73 SQ METERS. CHRONIC KIDNEY DISEASE: <60mL/MIN/1.73 SQ METERS KIDNEY FAILURE: <15mL/MIN/1.73 SQ METERS THIS TEST SHOULD ONLY BE USED FOR PATIENTS 18 YEARS OF AGE AND OLDER. Globulin (S) [Mass/Vol] 2.6 g/dL Normal 1.5 - 3.8 [facility] Comment on above: Performed By: #### 2 53895 #### [address] [address] Glucose [Mass/Vol] 125 mg/dL High 74 - 106 [facility] Comment on above: Performed By: #### 2 40864 #### [address] [address] Potassium [Moles/Vol] 2.9 mmol/L Critically low 3.5 - 5.1 [facility] Comment on above: Result Comment: { CA LLED TO SARA MEJIAS RN AT 0558 { READ BACK BY FROM SAAR TO IRINA [facility]F MECHANIC Performed By: #### 2 89468 #### [address] [address] Protein [Mass/Vol] 6.4 g/dL Normal 6.4 - 8.2 [facility] Comment on above: Performed By: #### 2 06605 #### [address] [address] Sodium [Moles/Vol] 143 mmol/L Normal 136 - 145 [facility] Comment on above: Performed By: #### 2 94752 #### [address] [address] Urea nitrogen [Mass/Vol] 12 mg/dL Normal 7 - 18 [facility] Comment on above: Performed By: #### 2 30628 #### [address] [address] [address] ABDOMEN/PELVIS [facility] 2022 CT ABDOMEN/PELVIS [place] [address] Patient: MEL WALL Phone#: : 1985 Age: 37 Gender: F Pt. Type: ER Account: [id number] Location: 052 Ordering: TOM NIÑO Exam Date: 03/02/2023/5:32 Family Phys: Charge Code: [id number] Physician: Maricao Order #: [id number] Dose#: 37.60 PROCEDURE: CT ABDOMEN/PELVIS WITH CONTRAST COMPARISON: [facility], CT, ABDOMEN/PELVIS W CON, 01/04/2023, 23:05. INDICATIONS: Abdominal pain. TECHNIQUE: After obtaining the patient's consent, CT images were created with non-ionic intravenous contrast material. All CT scans at this facility use dose modulation, iterative reconstruction, and/or weight based dosing when appropriate to reduce radiation dose to as low as reasonably achievable. IV CONTRAST: Omnipaque 350,80ml TOTAL DOSE: 37.60 CTDIvol(mGy) FINDINGS: LIVER: Normal. No enlargement, atrophy, abnormal density, or significant focal lesion. BILIARY: The gallbladder is absent. PANCREAS: Normal. No lesion, fluid collection, ductal dilatation, or atrophy. SPLEEN: Normal. No enlargement or focal lesion. KIDNEYS: Hypodense renal foci are present bilaterally in consistent with cysts. There is no evidence of hydronephrosis. ADRENALS: Normal. No mass or enlargement. AORTA/VASCULAR: Normal. No aneurysm or dissection. RETROPERITONEUM: Normal. No mass or adenopathy. BOWEL/MESENTERY: Normal. No visible mass, obstruction, or bowel wall thickening. ABDOMINAL WALL: Large ventral hernia is present with small and large bowel. There is no evidence of obstruction or strangulation. There has been no significant change since previous exam. URINARY BLADDER: Normal. No visible focal wall thickening, lesion, or calculus. PELVIC NODES: Normal. No adenopathy. PELVIC ORGANS: Tubal ligation clips are present. There is a right follicular cyst. BONES: Normal. No bony lesion or fracture. LUNG BASES: Normal. No visible pulmonary or pleural disease. Continued Report - Page 2 of 2 Patient: MEL WALL Phone#: : 1985 Age: 37 Gender: F Pt. Type: ER Account: [id number] Location: 052 Ordering: TOM NIÑO Exam Date: 03/02/2023/5:32 Family Phys: Charge Code: [id number] Physician: Maricao Order #: [id number] Dose#: 37.60 OTHER: Negative. CONCLUSION: 1. Large ventral hernia with herniation of small large bowel. There is no evidence of obstruction. 2. No other acute abdominal or pelvic abnormality is identified. Dictated by: Sherrie Olson MD on 03/02/2023 at 9:31 Approved by: Sherrie Olson MD on 03/02/2023 at 9:42 Normal [facility] LIPASEon 03-02-2023 Lipase [Catalytic activity/Vol] 186.0 U/L Normal 73.0 - 393 [facility] Comment on above: Performed By: #### 2 81703 #### [facility],[address] [place] [address] TROPONIN I, HIGH SENSITIVITY on 03-02-2023 HS TROPONIN 5.8 pg/mL Normal 0.0 - 51.4 [facility] Comment on above: Performed By: #### 2 33848 #### [facility],[address] [place] [address] URINALYSISon 03-02-2023 Amorphous NONE Normal [facility] Comment on above: Performed By: #### 2 85664 #### [facility],[address] [place] [address] Bacteria 3+ Normal [facility] Comment on above: Performed By: #### 2 82444 #### [facility],[address] [place] [address] 28838 Bilirubin Ql (U) Negative Normal NORMAL: NEGATIVE [facility] Comment on above: Performed By: #### 2 08283 #### [facility],[address] [place] [address] 76571 Casts NONE Normal [facility] Comment on above: Performed By: #### 2 77824 #### [facility],[address] [place] [address] Clarity (U) sl.cloudy Normal NORMAL: CLEAR [facility] Comment on above: Performed By: #### 2 51336 #### [facility],[address] [place] [address] 35030 Color (U) p.yel Normal NORMAL: YELLOW [facility] Comment on above: Performed By: #### 2 78536 #### [facility],[address] [place] [address] 15479 Crystals LM Nom (Urine sed) NONE Normal [facility] Comment on above: Performed By: #### 2 96851 #### [facility],[address] [place], [place] [id number] Epi Cells MANY Normal [facility] Comment on above: Performed By: #### 2 97924 #### [facility],[address] [place] [address] 22808 Glucose Ql (U) NORM Normal NORMAL: NORMAL [facility] Comment on above: Performed By: #### 2 97730 #### [facility],[address] [place] [address] 59830 Hemoglobin Ql (U) 10 Abnormal NORMAL: NEGATIVE [facility] Comment on above: Performed By: #### 2 83399 #### [facility],[address] [place] [address] 53139 Ketone Negative Normal NORMAL: NEGATIVE [facility] Comment on above: Performed By: #### 2 89089 #### [facility],[address] [place] [address] 65008 Leukocytes Negative Normal NORMAL: NEGATIVE [facility] Comment on above: Performed By: #### 2 51514 #### [facility],[address] [place] [address] 85841 Mucous NONE Normal [facility] Comment on above: Performed By: #### 2 08698 #### [facility],[address] [place] [address] Nitrite Ql (U) Negative Normal NORMAL: NEGATIVE [facility] Comment on above: Performed By: #### 2 43426 #### [facility],[address] [place] [address] pH (U) 7 [pH] Normal NORMAL: 5.0-8.0 [facility] Comment on above: Performed By: #### 2 27027 #### [facility],[address] [place] [address] Protein Ql (U) 15 Abnormal NORMAL: NEGATIVE [facility] Comment on above: Performed By: #### 2 51460 #### [facility],[address] [place] [address] Rbc 0-5 Normal 0-3/hpf [facility] Comment on above: Performed By: #### 2 14726 #### [facility],[address] [place] [address] Sp Hennessey 1.010 Normal NORMAL: 1.010-1.03 0 [facility] Comment on above: Performed By: #### 2 31474 #### [facility],[address] [place] [address] Specimen Type Void Normal [facility] Comment on above: Performed By: #### 2 72124 #### [facility],[address] [place] [address] Urinalysis dipstick W Reflex Microscopic panel (U) SEE BELOW Normal [facility] Comment on above: Result Comment: MICR OSCOPIC Performed By: #### 2 21244 #### [facility],[address] [place] [address] Urobilinog NORM Normal NORMAL: NORMAL [facility] Comment on above: Performed By: #### 2 98170 #### [facility],[address] [place] [address] Wbc 1-5 Normal 0-5/hpf [facility] Comment on above: Performed By: #### 2 83862 #### [facility],[address] [place] [address] 61153 Yeast NONE Normal [facility] Comment on above: Performed By: #### 2 78510 #### [facility],[address] [place] [address]47 EMERGENCY REPORTon 3 EMERGENCY REPORT [facility] EMERGENCY ROOM REPORT NAME ACCOUNT SEX AGE ADMIT DISCHARGE PT MED. RECORD# NUMBER DATE DATE TYPE [place], [id number] F 37 01/04/23 01/05/23 3 [place]EL [place] [id number] ROOM: ER DATE OF : 1985 DICTATING PHYSICIAN: Alisa Mcdonald HISTORY OF PRESENT ILLNESS: The patient is a 37-year-old female with history of a large ventral hernia, who presents today with complaints of crampy lower abdominal pain. She states she started feeling the abdominal discomfort around 3 p.m. after work and is progressively worsening. She was unable to tolerate her oral Phenergan, and came to the ED for further evaluation. She has been having some nausea and vomiting, denies any diarrhea or constipation, is passing gas appropriately, is also burping appropriately. She denies any fevers, denies any shortness of breath. She states she feels very anxious. She denies any dizziness, headache, lightheadedness, recent falls or injuries. Denies any vaginal discharge, dysuria or hematuria. She states she follows a surgeon at [facility] and is scheduled to see them in a couple days to schedule surgery for this. She states she had this hernia for several years now REVIEW OF SYSTEMS: At least 10 review of systems were assessed and were negative aside from those documented in the HPI. PHYSICAL EXAMINATION: The patient is resting comfortably. Vital signs are unremarkable and within normal limits. Her abdomen shows a large hernia. However, it is minimally tender over the hernia. There are no overlying skin changes. Her lungs are clear to auscultation. Her heart has no murmurs. Distal pulses are intact. Oral mucosa does appear moist. DIAGNOSTIC DATA: The patient's laboratories returned largely unremarkable. She has no leukocytosis. Her hemoglobin is stable. She has mild hypokalemia of 3.2, which she was advised to increase her potassium in her diet. Lactate is normal. Anion gap is normal. Her CT imaging returned without any signs of obstruction, strangulation, or incarceration. EMERGENCY DEPARTMENT COURSE AND TREATMENT: Multiple differentials are being considered for this patient. We will obtain CT imaging to look for any acute changes. However, per chart, we noted that patient has been seen here multiple times for similar symptoms. We will obtain CT imaging as well as laboratory workup. If workup returns overall unremarkable, believe appropriately to send home with follow-up with her surgeon. We will give IV fluids, IV Phenergan, and monitor for symptomatic relief. PLAN/DISPOSITION: Pain is controlled with IV morphine. Medications are given. The patient will be discharged home with follow-up with her surgeon. She does state she Page 1 of 2 MEL WALL Emergency Room Report MEL WALL : 1985 has an appointment with her surgeon next week. Dictated By: Alisa Mcdonald DO 01/05/23 02:43 JOB #: [id number] Transcribed By: 01/05/23 19:53 Electronically signed by: Dr. Alisa Mcdonald, 01/07/23 01:58 Page 2 of 2 MEL WALL Emergency Room Report Normal [facility] CBC + DIFFon 01-05-2023 Baso # 0.00 x10EE3/UL Normal 0.00 - 0.10 [facility] Comment on above: Performed By: #### 2 25687 #### [place] [id number] Basophils/100 WBC (Bld) 0.4 % Normal 0.0 - 2.0 [facility] Comment on above: Performed By: #### 2 28829 #### [facility],[address] [place] [address] CBC + DIFF Normal [facility] Comment on above: Result Comment: CBC- COMPLETE BLOOD COUNT Performed By: #### 2 86655 #### [facility],[address] [place] [address] EO # 0.30 x10EE3/UL Normal 0.00 - 0.50 [facility] Comment on above: Performed By: #### 2 08015 #### [facility],[address] [place] [address]886 Eosinophils/100 WBC (Bld) 4.3 % Normal 0.0 - 7.0 [facility] Comment on above: Performed By: #### 2 72031 #### [facility],[address] [place] [address] Erythrocyte distribution width (RBC) [Ratio] 13.4 % Normal 12.0 - 15.6 [facility] Comment on above: Performed By: #### 2 26771 #### [facility],[address] [place] [address] Hematocrit (Bld) [Volume fraction] 39.6 % Normal 34.0 - 46.0 [facility] Comment on above: Performed By: #### 2 88780 #### [facility],[address] [place] [address] Hemoglobin (Bld) [Mass/Vol] 13.2 g/dL Normal 12.0 - 16.0 [facility] Comment on above: Performed By: #### 2 11644 #### [facility],[address] [place] [address] Lymph # 2.00 x10EE3/UL Normal 0.80 - 2.80 [facility] Comment on above: Performed By: #### 2 49004 #### [facility],[address] [place] [address] Lymphocytes/100 WBC (Bld) 26.9 % Normal 20.0 - 45.0 [facility] Comment on above: Performed By: #### 2 65807 #### [facility],[address] [place], [place] [id number] MANUAL DIFF N/A Normal [facility] Comment on above: Performed By: #### 2 73169 #### [facility],[address] [place], [place] [id number] MCH (RBC) [Entitic mass] 31 pg Normal 27 - 33 [facility] Comment on above: Performed By: #### 2 80186 #### [facility] [place] [address] MCHC 33 X10 3 Normal 32 - 36 [facility] Comment on above: Performed By: #### 2 58356 #### [facility],[address] [place] [address] MCV (RBC) [Entitic vol] 93 fL Normal 80 - 99 [facility] Comment on above: Performed By: #### 2 53514 #### [facility],[address] [place] [address] [place] # 0.40 x10EE3/UL Normal 0.20 - 1.00 [facility] Comment on above: Performed By: #### 2 89155 #### [facility],[address] [place] [address] MONOS % 4.8 % Normal 0.0 - 10.0 [facility] Comment on above: Performed By: #### 2 55073 #### [facility],[address] [place] [address] Morphology Juve (Bld) [Interp] N/A Normal [facility] Comment on above: Performed By: #### 2 71914 #### [facility],[address] [place] [address] Neut # 4.80 x10EE3/UL Normal 1.50 - 7.10 [facility] Comment on above: Performed By: #### 2 33824 #### [facility],[address] [place] [address] Neutrophils/100 WBC (Bld) 63.6 % Normal 46.0 - 76.0 [facility] Comment on above: Performed By: #### 2 68322 #### [place] [address] PLATELET 253 x10EE3/UL Normal 150 - 450 [facility] Comment on above: Performed By: #### 2 89403 #### [facility],[address],[place] [address] Platelet mean volume (Bld) [Entitic vol] 7.0 fL Normal 6.6 - 10.5 [facility] Comment on above: Result Comment: AUTO MATED DIFFERENTIAL Performed By: #### 2 19315 #### [facility],[address] [place] [address]10 RBC 4.28 x 10EE6/UL Normal 4.10 - 5.30 [facility] Comment on above: Performed By: #### 2 06502 #### [facility],[address] [place] [address] 89393 WBC 7.5 x 10EE3/UL Normal 4.5 - 10.8 [facility] Comment on above: Performed By: #### 2 93332 #### [facility],[address] [place] [address] 23359 CMP with eGFRon 01-05-2023 AGE 37 years Normal [facility] Comment on above: Performed By: #### 2 81847 #### [facility],[address] [place] [address] 23512 Albumin [Mass/Vol] 3.9 g/dL Normal 3.4 - 5.0 [facility] Comment on above: Performed By: #### 2 27912 #### [facility],[address] [place] [address] 26695 Albumin/Globulin [Mass ratio] 1.3 {ratio} Normal 0.9 - 1.6 [facility] Comment on above: Performed By: #### 2 98272 #### [facility],[address] [place] [address] 56657 ALK PHOS 50 U/L Normal 46 - 116 [facility] Comment on above: Performed By: #### 2 50048 #### [facility],[address] [place] [address] 02071 ALT [Catalytic activity/Vol] 25 U/L Normal 14 - 59 [facility] Comment on above: Performed By: #### 2 54204 #### [facility],[address] [place] [address] 27952 Anion gap [Moles/Vol] 14 mmol/L Normal 10 - 20 [facility] Comment on above: Performed By: #### 2 18795 #### [facility],[address] [place] [address] 97929 AST [Catalytic activity/Vol] 18 U/L Normal 13 - 39 [facility] Comment on above: Performed By: #### 2 76216 #### [facility],[address] [place], [place] [id number] B/C RATIO 14 ratio Normal 0 - 30 [facility] Comment on above: Performed By: #### 2 74145 #### [facility],[address] [place] [address] 86537 Bilirubin [Mass/Vol] 0.2 mg/dL Normal 0.2 - 1.0 [facility] Comment on above: Performed By: #### 2 02483 #### [facility],[address] [place] [address] 21642 Calcium [Mass/Vol] 8.6 mg/dL Normal 8.5 - 10.1 [facility] Comment on above: Performed By: #### 2 87179 #### [facility],[address] [place], [place] [id number] Chloride [Moles/Vol] 102 mmol/L Normal 98 - 107 [facility] Comment on above: Performed By: #### 2 06494 #### [facility],[address] [place] [address] 84901 CMP with eGFR Normal [facility] Comment on above: Result Comment: COMP REHENSIVE METABOLIC PANEL Performed By: #### 2 62481 #### [facility],[address] [place] [address]851 CO2 [Moles/Vol] 26.3 mmol/L Normal 21.0 - 32.0 [facility] Comment on above: Performed By: #### 2 41209 #### [facility],[address] [place] [address] Creatinine [Mass/Vol] 0.59 mg/dL Normal 0.55 - 1.02 [facility] Comment on above: Performed By: #### 2 01764 #### [facility],[address] [place] [address] GFR/1.73 sq M.predicted among non-blacks MDRD (S/P/Bld) [Vol rate/Area] mL/min/{1.73_m2} Normal 60 - 999 [facility] Comment on above: Performed By: #### 2 75871 #### [facility],[address] [place] [address] Result Comment: ACCO RDING TO THE NATIONAL KIDNEY DISEASE EDUCATION PROGRAM(NKDE), A NORMAL eGFR IS A VALUE GREATER THAN OR EQUAL TO 60 ML/MIN/1.73 SQ METERS. CHRONIC KIDNEY DISEASE: <60mL/MIN/1.73 SQ METERS KIDNEY FAILURE: <15mL/MIN/1.73 SQ METERS THIS TEST SHOULD ONLY BE USED FOR PATIENTS 18 YEARS OF AGE AND OLDER. Globulin (S) [Mass/Vol] 3.0 g/dL Normal 1.5 - 3.8 [facility] Comment on above: Performed By: #### 2 33594 #### [place] [address] Glucose [Mass/Vol] 112 mg/dL High 74 - 106 [facility] Comment on above: Performed By: #### 2 79011 #### [facility],[address] [place], [place] [id number] Potassium [Moles/Vol] 3.2 mmol/L Low 3.5 - 5.1 [facility] Comment on above: Performed By: #### 2 96911 #### [place] [id number] Protein [Mass/Vol] 6.9 g/dL Normal 6.4 - 8.2 [facility] Comment on above: Performed By: #### 2 35469 #### [place] [address],[place] [address] Sodium [Moles/Vol] 139 mmol/L Normal 136 - 145 [facility] Comment on above: Performed By: #### 2 68551 #### [facility],[address] [place] [address] 95787 Urea nitrogen [Mass/Vol] 8 mg/dL Normal 7 - 18 [facility] Comment on above: Performed By: #### 2 88781 #### [facility],[address] [place] [address] ABDOMEN/PELVIS Won 2022 CT ABDOMEN/PELVIS W [place] [address] Patient: MEL WALL Phone#: : 1985 Age: 37 Gender: F Pt. Type: ER Account: [id number] Location: [facility] Ordering: ALISA MCDONALD Exam Date: 01/04/2023/23:05 Family Phys: Charge Code: [id number] Physician: Maricao Order #: [id number] Dose#: [id number] PROCEDURE: CT ABDOMEN/PELVIS WITH CONTRAST COMPARISON: [facility], CT, ABDOMEN/PELVIS W CON, 12/13/2022, 22:08. INDICATIONS: Abdominal pain. TECHNIQUE: After obtaining the patient's consent, CT images were created with non-ionic intravenous contrast material. All CT scans at this facility use dose modulation, iterative reconstruction, and/or weight based dosing when appropriate to reduce radiation dose to as low as reasonably achievable. IV CONTRAST: Omnipaque 350,80ml TOTAL DOSE: 36.20 CTDIvol(mGy) FINDINGS: LIVER: Normal. No enlargement, atrophy, abnormal density, or significant focal lesion. BILIARY: The gallbladder is absent. PANCREAS: Normal. No lesion, fluid collection, ductal dilatation, or atrophy. SPLEEN: Normal. No enlargement or focal lesion. KIDNEYS: There are bilateral renal hypodense foci unchanged from previous exam. No mass, obstruction, or calcification. ADRENALS: Normal. No mass or enlargement. AORTA/VASCULAR: Normal. No aneurysm or dissection. RETROPERITONEUM: Normal. No mass or adenopathy. BOWEL/MESENTERY: Normal. No visible mass, obstruction, or bowel wall thickening. ABDOMINAL WALL: A large mid abdominal hernia with orifice of 11.9 centimeters is present. There is herniation of small large bowel without evidence of obstruction or strangulation. URINARY BLADDER: Normal. No visible focal wall thickening, lesion, or calculus. PELVIC NODES: Normal. No adenopathy. PELVIC ORGANS: Tubal ligation clips are present. No visible mass. Pelvic organs appropriate for patient age. BONES: Normal. No bony lesion or fracture. Continued Report - Page 2 of 2 Patient: MEL WALL Phone#: : 1985 Age: 37 Gender: F Pt. Type: ER Account: [id number] Location: [facility] Ordering: ALISA MCDONALD Exam Date: 01/04/2023/23:05 Family Phys: Charge Code: [id number] Physician: Maricao Order #: [id number] Dose#: [id number] LUNG BASES: Normal. No visible pulmonary or pleural disease. OTHER: Negative. CONCLUSION: 1. Large mid abdominal hernia with herniation of small large bowel. There is no evidence of obstruction or strangulation. Dictated by: Sherrie Olson MD on 01/05/2023 at 11:06 Approved by: Sherrie Olson MD on 01/05/2023 at 11:11 Normal [facility] LACTATEon 01-05-2023 Lactate [Moles/Vol] 1.8 mmol/L Normal 0.4 - 2.0 [facility] Comment on above: Performed By: #### 2 30997 #### [facility],[address] [place] [address] LIPASEon 01-05-2023 Lipase [Catalytic activity/Vol] 113.0 U/L Normal 73.0 - 393 [facility] Comment on above: Performed By: #### 2 59045 #### [facility],[address] [place] [address] URINALYSISon 01-05-2023 Bilirubin Ql (U) Negative Normal NORMAL: NEGATIVE [facility] Comment on above: Performed By: #### 2 73118 #### [facility],[address] [place] [address] 84142 Clarity (U) clear Normal NORMAL: CLEAR [facility] Comment on above: Performed By: #### 2 23306 #### [facility],[address] [place] [address] 97359 Color (U) p.yel Normal NORMAL: YELLOW [facility] Comment on above: Performed By: #### 2 87133 #### [facility],[address] [place] [address] 86606 Glucose Ql (U) NORM Normal NORMAL: NORMAL [facility] Comment on above: Performed By: #### 2 59986 #### [facility],[address] [place] [address] 65311 Hemoglobin Ql (U) Negative Normal NORMAL: NEGATIVE [facility] Comment on above: Performed By: #### 2 78791 #### [facility],[address] [place] [address] 72020 Ketone Negative Normal NORMAL: NEGATIVE [facility] Comment on above: Performed By: #### 2 66811 #### [facility],[address] [place] [address] 25348 Leukocytes Negative Normal NORMAL: NEGATIVE [facility] Comment on above: Performed By: #### 2 09799 #### [facility],[address] [place] [address] 05164 Nitrite Ql (U) Negative Normal NORMAL: NEGATIVE [facility] Comment on above: Performed By: #### 2 90424 #### [facility],[address] [place] [address] 26496 pH (U) 7 [pH] Normal NORMAL: 5.0-8.0 [facility] Comment on above: Performed By: #### 2 42233 #### [facility],[address] [place] [address] 16477 Protein Ql (U) Negative Normal NORMAL: NEGATIVE [facility] Comment on above: Performed By: #### 2 06517 #### [facility],[address] [place] [address] Sp Hennessey 1.005 Low NORMAL: 1.010-1.03 0 [facility] Comment on above: Performed By: #### 2 86764 #### [facility],[address] [place] [address] Specimen Type Clean catch Normal [facility] Comment on above: Performed By: #### 2 80525 #### [facility],[address] [place], [place] [id number] Urinalysis dipstick W Reflex Microscopic panel (U) NOT INDICATED Normal [facility] Comment on above: Performed By: #### 2 67091 #### [facility],[address] [place] [address] Urobilinog NORM Normal NORMAL: NORMAL [facility] Comment on above: Performed By: #### 2 93852 #### [facility],[address] [place] [address] EMERGENCY REPORTon 3 EMERGENCY REPORT [facility] EMERGENCY ROOM REPORT NAME ACCOUNT SEX AGE ADMIT DISCHARGE PT MED. RECORD# NUMBER DATE DATE TYPE [place], [id number] F 37 12/13/22 12/14/22 3 [place] [id number] ROOM: ER DATE OF : 1985 DICTATING PHYSICIAN: Li Jara HISTORY OF PRESENT ILLNESS: This is a 37-year-old female with an umbilical hernia presenting with abdominal pain. She states that she has had this pain for some time and has been dealing with vomiting at home. She normally uses p.o. Phenergan and Phenergan suppositories. However, she has run out of her suppositories and has been unable to keep p.o. Phenergan down. She reports worsening abdominal pain. She denies any fevers or chills. She has had diarrhea for several days without any blood. She denies any urinary symptoms. She denies any change in her hernia aside from the pain. She states that she is currently following with general surgery, who is requiring her to lose weight prior to electively repairing her hernia. She is passing gas. PHYSICAL EXAMINATION: GENERAL: She is tearful and otherwise in no respiratory distress. CARDIOVASCULAR: Examination is notable for a regular rate and rhythm. PULMONARY: She is clear to auscultation bilaterally and has no increased work of breathing or accessory muscle use. ABDOMEN: On abdominal examination, she does have a large umbilical hernia that is non-reducible and exquisitely tender. She has no overlying skin changes. Otherwise, abdomen is mildly distended but soft. DIAGNOSTIC DATA: Laboratories obtained and without significant abnormality. A CT of the abdomen/pelvis was obtained with IV contrast that demonstrated a bowel-containing hernia without evidence of ischemia, strangulation or incarceration. EMERGENCY DEPARTMENT COURSE AND TREATMENT: She received IV morphine, IV Zofran and IV Dilaudid given that her pain was unrelieved by morphine. Low suspicion that this is an acute surgical issue. She confirms that she has Bentyl at home for abdominal spasm and was agreeable to be discharged home with a refill on her Phenergan suppository prescription. She was advised to continue her follow-up with general surgery and is comfortable with this plan. She was able to tolerate p.o. in the Emergency Department. PLAN/DISPOSITION: She was discharged home in stable condition. Dictated By: Li Jara MD 12/14/22 03:09 JOB #: [id number] Transcribed By: meli 12/14/22 16:10 Electronically signed by: Dr. Li Jara MD 12/27/22 01:31 Page 1 of 1 MEL WALL Emergency Room Report Normal [facility] CBC + DIFFon 12-14-2022 Baso # 0.10 x10EE3/UL Normal 0.00 - 0.10 [facility] Comment on above: Performed By: #### 2 64661 #### [place] [id number] Basophils/100 WBC (Bld) 0.5 % Normal 0.0 - 2.0 [facility] Comment on above: Performed By: #### 2 94295 #### [facility],[address] [place], [place] [id number] CBC + DIFF Normal [facility] Comment on above: Result Comment: CBC- COMPLETE BLOOD COUNT Performed By: #### 2 96381 #### [address] [address] EO # 0.30 x10EE3/UL Normal 0.00 - 0.50 [facility] Comment on above: Performed By: #### 2 09766 #### [facility],[address] [place] [address] Eosinophils/100 WBC (Bld) 2.7 % Normal 0.0 - 7.0 [facility] Comment on above: Performed By: #### 2 51304 #### [place] [address] Erythrocyte distribution width (RBC) [Ratio] 13.3 % Normal 12.0 - 15.6 [facility] Comment on above: Performed By: #### 2 41904 #### [place] [address] Hematocrit (Bld) [Volume fraction] 40.6 % Normal 34.0 - 46.0 [facility] Comment on above: Performed By: #### 2 34949 #### [place] [address] Hemoglobin (Bld) [Mass/Vol] 13.5 g/dL Normal 12.0 - 16.0 [facility] Comment on above: Performed By: #### 2 35601 #### [place] [id number] Lymph # 2.50 x10EE3/UL Normal 0.80 - 2.80 [facility] Comment on above: Performed By: #### 2 19293 #### [place] [id number] Lymphocytes/100 WBC (Bld) 23.1 % Normal 20.0 - 45.0 [facility] Comment on above: Performed By: #### 2 41327 #### [facility] [place] [address] MANUAL DIFF N/A Normal [facility] Comment on above: Performed By: #### 2 27389 #### [facility],[address] [place] [address] MCH (RBC) [Entitic mass] 31 pg Normal 27 - 33 [facility] Comment on above: Performed By: #### 2 70591 #### [facility],[address] [place] [address] MCHC 33 X10 3 Normal 32 - 36 [facility] Comment on above: Performed By: #### 2 73333 #### [facility],[address] [place] [address] MCV (RBC) [Entitic vol] 92 fL Normal 80 - 99 [facility] Comment on above: Performed By: #### 2 04800 #### [facility],[address] [place] [address] Charlton # 0.60 x10EE3/UL Normal 0.20 - 1.00 [facility] Comment on above: Performed By: #### 2 79267 #### [facility],[address] [place] [address] MONOS % 5.2 % Normal 0.0 - 10.0 [facility] Comment on above: Performed By: #### 2 40459 #### [facility],[address] [place] [address] Morphology Juve (Bld) [Interp] N/A Normal [facility] Comment on above: Performed By: #### 2 44057 #### [place] [address] Neut # 7.30 x10EE3/UL High 1.50 - 7.10 [facility] Comment on above: Performed By: #### 2 53706 #### [place] [address] Neutrophils/100 WBC (Bld) 68.5 % Normal 46.0 - 76.0 [facility] Comment on above: Performed By: #### 2 04856 #### [facility],[address] [place] [address]9029 PLATELET 285 x10EE3/UL Normal 150 - 450 [facility] Comment on above: Performed By: #### 2 97490 #### [facility],[address] [place] [address] 12366 Platelet mean volume (Bld) [Entitic vol] 6.9 fL Normal 6.6 - 10.5 [facility] Comment on above: Result Comment: AUTO MATED DIFFERENTIAL Performed By: #### 2 38995 #### [facility],[address] [place] [address] 59695 RBC 4.40 x 10EE6/UL Normal 4.10 - 5.30 [facility] Comment on above: Performed By: #### 2 84674 #### [facility],[address] [place] [address] 08782 WBC 10.7 x 10EE3/UL Normal 4.5 - 10.8 [facility] Comment on above: Performed By: #### 2 01768 #### [facility],[address] [place] [address] 44313 CHEST 1 VIEWon 12-14-2022 CHEST 1 VIEW [place] [address] Patient: MEL WALL Phone#: : 1985 Age: 37 Gender: F Pt. Type: ER Account: [id number] Location: 052 Ordering: DR. LI JARA Exam Date: 12/13/2022/22:24 Family Phys: Charge Code: [id number] Physician: Maricao Order #: [id number] Dose#: PROCEDURE: X-RAY CHEST 1 VIEW COMPARISON: [facility], XR, CHEST PA/LAT, 10/13/2017, 19:28. INDICATIONS: Cough. FINDINGS: LUNGS: Normal. No significant pulmonary parenchymal abnormalities. VASCULATURE: Normal. Unremarkable pulmonary vasculature. CARDIAC: Normal. No cardiac silhouette abnormality or cardiomegaly. MEDIASTINUM: Normal. No visible mass or adenopathy. PLEURA: Normal. No effusion or pleural thickening. BONES: Normal. No fracture or visible bony lesion. OTHER: Negative. CONCLUSION: No acute disease. No significant change has occurred. Dictated by: Sherrei Olson MD on 12/14/2022 at 3:23 Approved by: Sherrie Olson MD on 12/14/2022 at 3:25 Normal [facility] CMP with eGFRon 12-14-2022 AGE 37 years Normal [facility] Comment on above: Performed By: #### 2 54326 #### [address] [address] Albumin [Mass/Vol] 3.8 g/dL Normal 3.4 - 5.0 [facility] Comment on above: Performed By: #### 2 49822 #### [facility],[address] [place] [address] 98929 Albumin/Globulin [Mass ratio] 1.3 {ratio} Normal 0.9 - 1.6 [facility] Comment on above: Performed By: #### 2 62980 #### [facility],[address] [place] [address] 61580 ALK PHOS 48 U/L Normal 46 - 116 [facility] Comment on above: Performed By: #### 2 07463 #### [facility],[address] [place] [address] 46742 ALT [Catalytic activity/Vol] 15 U/L Normal 14 - 59 [facility] Comment on above: Performed By: #### 2 73861 #### [facility],[address] [place] [address] 08408 Anion gap [Moles/Vol] 14 mmol/L Normal 10 - 20 [facility] Comment on above: Performed By: #### 2 73390 #### [facility],[address] [place] [address] 46059 AST [Catalytic activity/Vol] 8 U/L Low 13 - 39 [facility] Comment on above: Performed By: #### 2 68815 #### [facility],[address] [place] [address] 66071 B/C RATIO 21 ratio Normal 0 - 30 [facility] Comment on above: Performed By: #### 2 92413 #### [facility],[address] [place] [address] 98329 Bilirubin [Mass/Vol] 0.2 mg/dL Normal 0.2 - 1.0 [facility] Comment on above: Performed By: #### 2 34166 #### [facility],[address] [place] [address] 15174 Calcium [Mass/Vol] 8.9 mg/dL Normal 8.5 - 10.1 [facility] Comment on above: Performed By: #### 2 90633 #### [facility],[address] [place] [address] 18432 Chloride [Moles/Vol] 102 mmol/L Normal 98 - 107 [facility] Comment on above: Performed By: #### 2 45912 #### [facility],[address] [place] [address] 16389 CMP with eGFR Normal [facility] Comment on above: Result Comment: COMP REHENSIVE METABOLIC PANEL Performed By: #### 2 97643 #### [facility],[address] [place] [address] 99167 CO2 [Moles/Vol] 26.7 mmol/L Normal 21.0 - 32.0 [facility] Comment on above: Performed By: #### 2 18619 #### [facility],[address] [place] [address] 19572 Creatinine [Mass/Vol] 0.72 mg/dL Normal 0.55 - 1.02 [facility] Comment on above: Performed By: #### 2 51243 #### [facility],[address] [place] [address] 08459 GFR/1.73 sq M.predicted among non-blacks MDRD (S/P/Bld) [Vol rate/Area] mL/min/{1.73_m2} Normal 60 - 999 [facility] Comment on above: Performed By: #### 2 64894 #### [facility],[address] [place] [address] 35002 Result Comment: ACCO RDING TO THE NATIONAL KIDNEY DISEASE EDUCATION PROGRAM(NKDE), A NORMAL eGFR IS A VALUE GREATER THAN OR EQUAL TO 60 ML/MIN/1.73 SQ METERS. CHRONIC KIDNEY DISEASE: <60mL/MIN/1.73 SQ METERS KIDNEY FAILURE: <15mL/MIN/1.73 SQ METERS THIS TEST SHOULD ONLY BE USED FOR PATIENTS 18 YEARS OF AGE AND OLDER. Globulin (S) [Mass/Vol] 3.0 g/dL Normal 1.5 - 3.8 [facility] Comment on above: Performed By: #### 2 19521 #### [facility],[address] [place] [address] 58553 Glucose [Mass/Vol] 107 mg/dL High 74 - 106 [facility] Comment on above: Performed By: #### 2 46335 #### [facility],[address] [place] [address] 24640 Potassium [Moles/Vol] 4.0 mmol/L Normal 3.5 - 5.1 [facility] Comment on above: Performed By: #### 2 21827 #### [facility],[address] [place] [address] 12637 Protein [Mass/Vol] 6.8 g/dL Normal 6.4 - 8.2 [facility] Comment on above: Performed By: #### 2 32322 #### [facility],[address] [place] [address] 96422 Sodium [Moles/Vol] 139 mmol/L Normal 136 - 145 [facility] Comment on above: Performed By: #### 2 08409 #### [facility],[address] [place] [address] 92262 Urea nitrogen [Mass/Vol] 15 mg/dL Normal 7 - 18 [facility] Comment on above: Performed By: #### 2 86272 #### [facility],[address] [place] [address] ABDOMEN/PELVIS Won 2022 CT ABDOMEN/PELVIS W [address] [address] Patient: MEL WALL Phone#: : 1985 Age: 37 Gender: F Pt. Type: ER Account: [id number] Location: [facility] Ordering: DR. LI JARA Exam Date: 12/13/2022/22:08 Family Phys: Charge Code: [id number] Physician: Maricao Order #: [id number] Dose#: 34.40 PROCEDURE: CT ABDOMEN/PELVIS WITH CONTRAST COMPARISON: [facility], CT, ABDOMEN/PELVIS W CON, 11/22/2022, 0:33. INDICATIONS: Hernia, pain, nausea and vomiting. TECHNIQUE: After obtaining the patient's consent, CT images were created with non-ionic intravenous contrast material. All CT scans at this facility use dose modulation, iterative reconstruction, and/or weight based dosing when appropriate to reduce radiation dose to as low as reasonably achievable. IV CONTRAST: Omnipaque 350,80ml TOTAL DOSE: 34.40 CTDIvol(mGy) FINDINGS: LIVER: Normal. No enlargement, atrophy, abnormal density, or significant focal lesion. BILIARY: Normal. No visible dilatation or calcification. PANCREAS: Normal. No lesion, fluid collection, ductal dilatation, or atrophy. SPLEEN: The spleen is enlarged with length of 15.0 centimeters. KIDNEYS: There is a right hepatic cyst.. No mass, obstruction, or calcification. ADRENALS: Normal. No mass or enlargement. AORTA/VASCULAR: Normal. No aneurysm or dissection. RETROPERITONEUM: Normal. No mass or adenopathy. BOWEL/MESENTERY: Surgical suture is present related to small bowel at the lower abdomen/pelvis.. No visible mass, obstruction, or bowel wall thickening. ABDOMINAL WALL: Abdominal wall defect with orifice of 8.1 centimeters is present. There is herniation of portion of the stomach, small bowel and large bowel. There is no evidence of obstruction. Midline incisional scar is present inferior to the hernia. URINARY BLADDER: Normal. No visible focal wall thickening, lesion, or calculus. PELVIC NODES: Normal. No adenopathy. PELVIC ORGANS: Normal. No visible mass. Pelvic organs appropriate for patient age. BONES: Normal. No bony lesion or fracture. Continued Report - Page 2 of 2 Patient: MEL WALL Phone#: : 1985 Age: 37 Gender: F Pt. Type: ER Account: [id number] Location: 2 Ordering: DR. LI JARA Exam Date: 12/13/2022/22:08 Family Phys: Charge Code: [id number] Physician: Maricao Order #: [id number] Dose#: 34.40 LUNG BASES: Normal. No visible pulmonary or pleural disease. OTHER: Negative. CONCLUSION: 1. Large hernia sac containing portion of the stomach, small and large bowel. There is no evidence of obstruction. 2. Right renal cyst. Dictated by: Sherrie Olson MD on 12/14/2022 at 4:24 Approved by: Sherrie Olson MD on 12/14/2022 at 4:29 Normal [facility] LIPASEon 12-14-2022 Lipase [Catalytic activity/Vol] 201.0 U/L Normal 73.0 - 393 [facility] Comment on above: Performed By: #### 2 63281 #### [facility],[address] [place] [address] URINEon 12-14-2022 Beta HCG ( test) Ql (U) Negative Normal NEGATIVE [facility] Comment on above: Performed By: #### 2 96229 #### [facility],[address] [place] [address] EXTERNAL QC DONE? YES Normal [facility] Comment on above: Performed By: #### 2 35771 #### [facility],[address] [place] [address] 29502 INTERNAL QC PASS Normal [facility] Comment on above: Performed By: #### 2 04869 #### [facility],[address] [place] [address] 84862 URINALYSISon 12-14-2022 Amorphous NONE Normal [facility] Comment on above: Performed By: #### 2 44996 #### [facility],[address] [place] [address] 08544 Bacteria 4+ Normal [facility] Comment on above: Performed By: #### 2 27403 #### [facility],[address] [place], [place] [id number] Bilirubin Ql (U) Negative Normal NORMAL: NEGATIVE [facility] Comment on above: Performed By: #### 2 26775 #### [facility],[address] [place] [address] Casts NONE Normal [facility] Comment on above: Performed By: #### 2 99349 #### [facility],[address] [place], [place] [id number] Clarity (U) clear Normal NORMAL: CLEAR [facility] Comment on above: Performed By: #### 2 10616 #### [facility],[address] [place] [address] 97827 Color (U) p.yel Normal NORMAL: YELLOW [facility] Comment on above: Performed By: #### 2 04682 #### [facility],[address] [place] [address] 04482 Crystals LM Nom (Urine sed) NONE Normal [facility] Comment on above: Performed By: #### 2 71574 #### [facility],[address] [place] [address] 66083 Epi Cells MANY Normal [facility] Comment on above: Performed By: #### 2 37827 #### [facility],[address] [place], [place] [id number] Glucose Ql (U) NORM Normal NORMAL: NORMAL [facility] Comment on above: Performed By: #### 2 71733 #### [facility],[address] [place] [address] 32606 Hemoglobin Ql (U) Negative Normal NORMAL: NEGATIVE [facility] Comment on above: Performed By: #### 2 50084 #### [facility],[address] [place] [address] 57989 Ketone Negative Normal NORMAL: NEGATIVE [facility] Comment on above: Performed By: #### 2 39212 #### [facility],[address] [place] [address] Leukocytes 25 Abnormal NORMAL: NEGATIVE [facility] Comment on above: Performed By: #### 2 80496 #### [facility],[address] [place] [address] Mucous NONE Normal [facility] Comment on above: Performed By: #### 2 64791 #### [facility],[address] [place] [address] 60318 Nitrite Ql (U) Negative Normal NORMAL: NEGATIVE [facility] Comment on above: Performed By: #### 2 44763 #### [facility],[address] [place], [place] [id number] pH (U) 7 [pH] Normal NORMAL: 5.0-8.0 [facility] Comment on above: Performed By: #### 2 60607 #### [facility],[address] [place] [address] 82944 Protein Ql (U) 15 Abnormal NORMAL: NEGATIVE [facility] Comment on above: Performed By: #### 2 69442 #### [facility],[address] [place] [address] 16800 Rbc NONE Normal 0-3/hpf [facility] Comment on above: Performed By: #### 2 74177 #### [facility],[address] [place], [place] [id number] Sp Hennessey 1.015 Normal NORMAL: 1.010-1.03 0 [facility] Comment on above: Performed By: #### 2 26822 #### [facility],[address] [place] [address] Specimen Type Clean catch Normal [facility] Comment on above: Performed By: #### 2 99092 #### [facility],[address] [place] [address] Urinalysis dipstick W Reflex Microscopic panel (U) SEE BELOW Normal [facility] Comment on above: Result Comment: MICR OSCOPIC Performed By: #### 2 39728 #### [facility],[address] [place] [address] Urobilinog NORM Normal NORMAL: NORMAL [facility] Comment on above: Performed By: #### 2 77322 #### [facility],[address] [place] [address] Wbc 1-5 Normal 0-5/hpf [facility] Comment on above: Performed By: #### 2 28294 #### [facility],[address] [place] [address] Yeast NONE Normal [facility] Comment on above: Performed By: #### 2 68241 #### [facility],[address] [place] [address] EMERGENCY REPORTon 3 EMERGENCY REPORT [facility] EMERGENCY ROOM REPORT NAME ACCOUNT SEX AGE ADMIT DISCHARGE PT MED. RECORD# NUMBER DATE DATE TYPE DUKE, [id number] F 37 11/16/22 11/16/22 3 [place] [id number] ROOM: ER DATE OF : 1985 DICTATING PHYSICIAN: Alisa Mcdonald HISTORY OF PRESENT ILLNESS: The patient is a 37-year-old female with a complex abdominal history, including cholecystectomy and multiple hernia repairs with a large ventral hernia that contains small bowel and portions of the transverse colon and cecum. She presents today with complaints of left lower side abdominal pain. She states that she was eating [employer] 2 days ago and started feeling some abdominal discomfort. She woke up yesterday continuing to have the discomfort. She was able to tolerate liquids. However, she feels like she has not been able to eat solids. She denies vomiting episodes but has been feeling nauseous. She had an episode of diarrhea yesterday. She states she feels an unusual pain that she has never felt in the past. She states that she has had multiple abdominal surgeries in the past. However, currently her hernia is being managed by [facility]. She states currently she needs to lose weight to get the surgery done. She is 15 pounds away from her goal weight for surgery. She denies any other trauma. She denies any falls or injuries. She denies any fevers. She denies any chest pain or shortness of breath. REVIEW OF SYSTEMS: At least 10 review of systems were assessed and were negative aside from those documented in the HPI. PHYSICAL EXAMINATION: GENERAL: The patient is resting comfortably. She is nontoxic-appearing. VITAL SIGNS: Unremarkable and within normal limits. ABDOMEN: She has minimal tenderness over her large right-sided ventral hernia. However, the pain is reproducible in the left lower quadrant. There are no overlying skin changes. DIAGNOSTIC DATA: The patient's laboratories returned with findings significant for a leukocytosis of 12.7. Otherwise, CBC is unremarkable. Chemistries are also unremarkable. Lactate is within normal limits. CT scan is concerning for a very large ventral hernia with a prominent volume of mesenteric fat and multiple large and small bowel segments. EMERGENCY DEPARTMENT COURSE AND TREATMENT: Given the patient's complex abdominal history, we will obtain laboratory work-up and treat with IV morphine as well as IV anti-emetics and will obtain a CT scan with IV and oral contrast. If the findings are concerning for obstruction or any surgical emergency, she will likely need urgent surgery evaluation. I discussed this with patient who sates she would like to be transferred to [facility], as this is where her current care is being done. She does understand the risk of delaying surgical evaluation if [facility] is unable to prompt accept Page 1 of 2 MEL WALL Emergency Room Report MEL WALL : 1985 patient. Given the patient's degree of pain as well as associated nausea and vomiting, there is concern for an incarcerated hernia. We will discuss this with the surgery team at [facility] for potential transfer for further management. The patient has required multiple doses of morphine and Compazine for symptom control. I was able to speak to Surgery from [facility], who state they will review the images and get back with us about possible transfer. The patient is resting comfortably with improvement in her symptoms, currently awaiting a call-back from [facility] Surgery. PLAN/DISPOSITION: The patient was signed out to Dr. Heard. Please follow his documentation for further management of the patient's care. Dictated By: Alisa Mcdonald DO 11/16/22 06:27 JOB #: [id number] Transcribed By: meli 11/16/22 17:25 Electronically signed by: Dr. Alisa Mcdonald DO 12/10/22 03:45 Page 2 of 2 [facility]KE [facility]EL [facility] Emergency Room Report Normal [facility] EMERGENCY REPORTon 3 EMERGENCY REPORT [facility] EMERGENCY ROOM REPORT NAME ACCOUNT SEX AGE ADMIT DISCHARGE PT MED. RECORD# NUMBER DATE DATE TYPE DUKE [id number] F 37 11/16/22 11/16/22 3 [place] [id number] ROOM: ER DATE OF : 1985 DICTATING PHYSICIAN: Tanya Heard HISTORY OF PRESENT ILLNESS: So again I talked to this patient at length. The reason she states she was here this morning is that she states that for couple of days she has felt just a little uncomfortable in her hernia and then this morning she states that felt sort of an unusual discomfort, it was a little more intense and she was not sure what it was. She never had it before so that is the reason she came to the emergency room. She did not vomit. She has two Phenergan suppositories at home and she likes to use Phenergan at home. She was nauseated but did not vomit. No diarrhea. No urinary complaints. No fever or chills. No cough or any chest pain. She did not take anything for this discomfort at home and just decided to come down here and check. SOCIAL HISTORY: Nonsmoker. No alcohol use. She is employed. She lives at home. She works with [employer]. EMERGENCY DEPARTMENT COURSE AND TREATMENT: When she got down here, Dr. Mcdonald gave her considerable medications and then we provided her with some additional medications here, and she states now she is feeling pretty comfortable. DISPOSITION/PLAN: We discussed her case with Dr. Lopez at [facility] and Dr. Tse at [facility], both. Regarding the fact that she had a large hernia, that there was no evidence of obstruction, she was not vomiting, she had no fever, and she was obtaining pain relief; they thought that it was not necessary to transfer her for reevaluation, that she did not meet any criteria for admitting and the pain management could be handled here. So I talked to the patient for a quite while. She said she was okay with going home. She just wanted to make sure that there was not anything seriously wrong. She states that she has had this kind of discomfort in the past and she believes she will do okay at home. She says in the past she has taken Percocet and Phenergan tablets. She already has Phenergan suppositories at home if necessary. She has lost 85 pounds in her quest to loose 100 pounds for surgery. So the doctors at [facility] suggested that she contact her regular surgeon, Dr. Michelle Escobar, and set up a recheck appointment. I told her she is welcome to return here anytime. Her abdomen was soft. She was comfortable. We are going to give her Percocet and Phenergan for home. DIAGNOSIS: Abdominal hernia discomfort. Dictated By: Tanya Heard DO Page 1 of 2 MEL WALL Emergency Room Report MEL WALL : 1985 11/16/22 10:24 JOB #: [id number] Transcribed By: fabrice 11/16/22 22:21 Electronically signed by: E-SIGN TANYA HEARD DO 12/02/22 17:44 Page 2 of 2 MEL WALL Emergency Room Report Normal [facility] EMERGENCY REPORT [facility] EMERGENCY ROOM REPORT NAME ACCOUNT SEX AGE ADMIT DISCHARGE PT MED. RECORD# NUMBER DATE DATE TYPE DUKE [id number] F 37 11/16/22 11/16/22 3 [place] [id number] ROOM: ER DATE OF : 1985 DICTATING PHYSICIAN: Tanya Heard I received a call from Dr. Lopez who represents Gastrointestinal Surgery at [facility] and that they felt that this patient was not a surgical candidate at this time and they did not see any reason to transfer her. So they are going to talk to medicine and give me a call back regarding that case. The time of their call to me was [phone] hours. Dictated By: Tanya Heard DO 11/16/22 09:50 JOB #: [id number] Transcribed By: fabrice 11/16/22 21:47 Electronically signed by: E-SIGN TANYA HEARD DO 12/02/22 17:44 Page 1 of 1 MEL WALL Emergency Room Report Normal [facility] EMERGENCY REPORT [facility] EMERGENCY ROOM REPORT NAME ACCOUNT SEX AGE ADMIT DISCHARGE PT MED. RECORD# NUMBER DATE DATE TYPE DUKE [id number] F 37 11/16/22 11/16/22 3 [place] [id number] ROOM: ER DATE OF : 1985 DICTATING PHYSICIAN: Tanya Heard DISPOSITION: The patient initially came in and was taken care of by Dr. Mcdonald and endorsed to the care of Dr. Heard at 7:00, awaiting transfer orders from [facility]. HISTORY OF PRESENT ILLNESS: According to Dr. Mcdonald this patient has substantial hernia down below. I went to see the patient and she was resting. She had some discomfort in her abdominal area, where she has a substantial hernia there. It is soft and relatively nontender. She just complaint about discomfort and nausea. She had Compazine and morphine earlier for those issues and they have been successful. I went in to see her just to inform her that [facility] had accepted her and we are awaiting a bed number and transfer. PHYSICAL EXAMINATION: She is very a pleasant individual, respiring easily, good eye contact, easy conversation, and easy respirations. Her abdomen was soft. The hernia was soft. Skin: Was warm and dry. EMERGENCY DEPARTMENT COURSE: She said that she had abdominal pain and that she was supposed to have her hernia, which had been previously operated on several times, repaired here when she lost 100 pounds. She has lost 85 pounds total. She wants to get this thing fixed. She had a mesh in previously. Most of the mesh had been removed because it had migrated. She is not sure what procedure they are going to next attempt for her. She requested something for nausea, and then I told we give her something for nausea and also if necessary there will be additional pain medications order for her for transport. DIAGNOSIS: Abdominal hernia symptomatic, very large. I want to emphasize that this is a very large hernia. I do not think it is strangulated. She is not vomiting. It is pretty soft but definitely uncomfortable to her. Dictated By: Tanya Heard DO 11/16/22 08:22 JOB #: [id number] Transcribed By: fabrice 11/16/22 21:12 Electronically signed by: Page 1 of 2 [facility] Emergency Room Report MEL WALL : 1985 E-SIGN TANYA BERNABE DOMINIQUE 12/02/22 17:44 Page 2 of 2 MEL WALL Emergency Room Report Normal [facility] C-REACTIVE PROTEINon 023 CRP [Mass/Vol] mg/L Normal 0.00 - 0.90 [facility] Comment on above: Performed By: #### 2 62122 #### [facility],[address] [place] [address] CBC + DIFFon 11-22-2022 Baso # 0.10 x10EE3/UL Normal 0.00 - 0.10 [facility] Comment on above: Performed By: #### 2 80638 #### [facility],[address] [place], [place] [id number] Basophils/100 WBC (Bld) 1.0 % Normal 0.0 - 2.0 [facility] Comment on above: Performed By: #### 2 22532 #### [facility],[address] [place] [address] CBC + DIFF Normal [facility] Comment on above: Result Comment: CBC- COMPLETE BLOOD COUNT Performed By: #### 2 18926 #### [facility],[address] [place], [place] [id number] EO # 0.40 x10EE3/UL Normal 0.00 - 0.50 [facility] Comment on above: Performed By: #### 2 37454 #### [facility],[address] [place] [address] 22357 Eosinophils/100 WBC (Bld) 3.7 % Normal 0.0 - 7.0 [facility] Comment on above: Performed By: #### 2 83472 #### [facility],[address] [place] [address] Erythrocyte distribution width (RBC) [Ratio] 13.2 % Normal 12.0 - 15.6 [facility] Comment on above: Performed By: #### 2 28814 #### [facility],[address] [place], [place] [id number] Hematocrit (Bld) [Volume fraction] 38.1 % Normal 34.0 - 46.0 [facility] Comment on above: Performed By: #### 2 75620 #### [facility],[address] [place] [address] Hemoglobin (Bld) [Mass/Vol] 13.1 g/dL Normal 12.0 - 16.0 [facility] Comment on above: Performed By: #### 2 60251 #### [facility],[address] [place] [address] Lymph # 2.80 x10EE3/UL Normal 0.80 - 2.80 [facility] Comment on above: Performed By: #### 2 84125 #### [facility],[address] [place], [place] [id number] Lymphocytes/100 WBC (Bld) 29.5 % Normal 20.0 - 45.0 [facility] Comment on above: Performed By: #### 2 44287 #### [facility],[address] [place], [place] [id number] MANUAL DIFF N/A Normal [facility] Comment on above: Performed By: #### 2 73590 #### [facility],[address] [place], [place] [id number] MCH (RBC) [Entitic mass] 31 pg Normal 27 - 33 [facility] Comment on above: Performed By: #### 2 68354 #### [facility],[address] [place] [address] 14894 MCHC 34 X10 3 Normal 32 - 36 [facility] Comment on above: Performed By: #### 2 05663 #### [facility],[address] [place] [address] 07409 MCV (RBC) [Entitic vol] 90 fL Normal 80 - 99 [facility] Comment on above: Performed By: #### 2 35268 #### [facility],[address] [place] [address] 37772 Charlton # 0.60 x10EE3/UL Normal 0.20 - 1.00 [facility] Comment on above: Performed By: #### 2 68162 #### [facility],[address] [place] [address] 45744 MONOS % 5.9 % Normal 0.0 - 10.0 [facility] Comment on above: Performed By: #### 2 48507 #### [facility],[address] [place] [address] 96345 Morphology Juve (Bld) [Interp] N/A Normal [facility] Comment on above: Result Comment: {CD] Performed By: #### 2 25440 #### [facility],[address] [place] [address] 03434 Neut # 5.80 x10EE3/UL Normal 1.50 - 7.10 [facility] Comment on above: Performed By: #### 2 47706 #### [facility],[address] [place] [address] 75717 Neutrophils/100 WBC (Bld) 59.9 % Normal 46.0 - 76.0 [facility] Comment on above: Performed By: #### 2 01095 #### [facility],[address] [place] [address] 42031 PLATELET 268 x10EE3/UL Normal 150 - 450 [facility] Comment on above: Performed By: #### 2 80467 #### [facility],[address] [place] [address] 20200 Platelet mean volume (Bld) [Entitic vol] 7.0 fL Normal 6.6 - 10.5 [facility] Comment on above: Result Comment: AUTO MATED DIFFERENTIAL Performed By: #### 2 84168 #### [facility],[address] [place] [address] 43359 RBC 4.23 x 10EE6/UL Normal 4.10 - 5.30 [facility] Comment on above: Performed By: #### 2 38956 #### [facility],[address] [place] [address] 83135 WBC 9.6 x 10EE3/UL Normal 4.5 - 10.8 [facility] Comment on above: Performed By: #### 2 94992 #### [facility],[address] [place] [address] 59621 CMP with eGFRon 11-22-2022 AGE 37 years Normal [facility] Comment on above: Performed By: #### 2 67494 #### [facility],[address] [place] [address] 90859 Albumin [Mass/Vol] 3.7 g/dL Normal 3.4 - 5.0 [facility] Comment on above: Performed By: #### 2 01239 #### [facility],[address] [place] [address] 69993 Albumin/Globulin [Mass ratio] 1.2 {ratio} Normal 0.9 - 1.6 [facility] Comment on above: Performed By: #### 2 36036 #### [facility],[address] [place] [address] 17453 ALK PHOS 51 U/L Normal 46 - 116 [facility] Comment on above: Performed By: #### 2 33696 #### [facility],[address] [place] [address] 91845 ALT [Catalytic activity/Vol] 14 U/L Normal 14 - 59 [facility] Comment on above: Performed By: #### 2 29548 #### [facility],[address] [place] [address] 49439 Anion gap [Moles/Vol] 15 mmol/L Normal 10 - 20 [facility] Comment on above: Performed By: #### 2 01176 #### [facility],[address] [place] [address] 81972 AST [Catalytic activity/Vol] 12 U/L Low 13 - 39 [facility] Comment on above: Performed By: #### 2 84113 #### [facility],[address] [place] [address] 29648 B/C RATIO 24 ratio Normal 0 - 30 [facility] Comment on above: Performed By: #### 2 17467 #### [facility],[address] [place] [address] 40908 Bilirubin [Mass/Vol] 0.1 mg/dL Low 0.2 - 1.0 [facility] Comment on above: Performed By: #### 2 91605 #### [facility],[address] [place] [address] 46541 Calcium [Mass/Vol] 8.8 mg/dL Normal 8.5 - 10.1 [facility] Comment on above: Performed By: #### 2 51822 #### [facility],[address] [place] [address] 67777 Chloride [Moles/Vol] 103 mmol/L Normal 98 - 107 [facility] Comment on above: Performed By: #### 2 46839 #### [facility],[address] [place] [address] 87762 CMP with eGFR Normal [facility] Comment on above: Result Comment: COMP REHENSIVE METABOLIC PANEL Performed By: #### 2 72816 #### [facility],[address] [place] [address] 41851 CO2 [Moles/Vol] 23.2 mmol/L Normal 21.0 - 32.0 [facility] Comment on above: Performed By: #### 2 58802 #### [facility],[address] [place] [address] 70423 Creatinine [Mass/Vol] 0.75 mg/dL Normal 0.55 - 1.02 [facility] Comment on above: Performed By: #### 2 [id number] #### [facility],[address] [place] [address] 34897 GFR/1.73 sq M.predicted among non-blacks MDRD (S/P/Bld) [Vol rate/Area] mL/min/{1.73_m2} Normal 60 - 999 [facility] Comment on above: Performed By: #### 2 77696 #### [facility],[address] [place] [address] 40056 Result Comment: ACCO RDING TO THE NATIONAL KIDNEY DISEASE EDUCATION PROGRAM(NKDE), A NORMAL eGFR IS A VALUE GREATER THAN OR EQUAL TO 60 ML/MIN/1.73 SQ METERS. CHRONIC KIDNEY DISEASE: <60mL/MIN/1.73 SQ METERS KIDNEY FAILURE: <15mL/MIN/1.73 SQ METERS THIS TEST SHOULD ONLY BE USED FOR PATIENTS 18 YEARS OF AGE AND OLDER. Globulin (S) [Mass/Vol] 3.1 g/dL Normal 1.5 - 3.8 [facility] Comment on above: Performed By: #### 2 90890 #### [facility],[address] [place] [address] 63828 Glucose [Mass/Vol] 114 mg/dL High 74 - 106 [facility] Comment on above: Performed By: #### 2 20394 #### [facility],[address] [place] [address] 95185 Potassium [Moles/Vol] 3.1 mmol/L Low 3.5 - 5.1 [facility] Comment on above: Performed By: #### 2 33065 #### [facility],[address] [place] [address] 79516 Protein [Mass/Vol] 6.8 g/dL Normal 6.4 - 8.2 [facility] Comment on above: Performed By: #### 2 74883 #### [facility],[address] [place] [address] 42572 Sodium [Moles/Vol] 138 mmol/L Normal 136 - 145 [facility] Comment on above: Performed By: #### 2 30509 #### [facility],[address] [place] [address] 03558 Urea nitrogen [Mass/Vol] 18 mg/dL Normal 7 - 18 [facility] Comment on above: Performed By: #### 2 88021 #### [facility],[address] [place] [address] ABDOMEN/PELVIS Won 2022 CT ABDOMEN/PELVIS W [place] [id number] Patient: MEL WALL Phone#: : 1985 Age: 37 Gender: F Pt. Type: ER Account: [id number] Location: [facility] Ordering: TOM NIÑO Exam Date: 11/22/2022/0:33 Family Phys: Charge Code: [id number] Physician: Maricao Order #: [id number] Dose#: [id number] PROCEDURE: CT ABDOMEN/PELVIS WITH CONTRAST COMPARISON: [facility], CT, ABDOMEN/PELVIS W CON, 07/29/2021, 21:51. [facility], CT, ABDOMEN/PELVIS W CON, 11/16/2022, 3:20. INDICATIONS: Abdominal pain. TECHNIQUE: After obtaining the patient's consent, CT images were created with non-ionic intravenous contrast material. All CT scans at this facility use dose modulation, iterative reconstruction, and/or weight based dosing when appropriate to reduce radiation dose to as low as reasonably achievable. IV CONTRAST: Omnipaque 350,80ml TOTAL DOSE: 53.80 CTDIvol(mGy) FINDINGS: LIVER: The anterior margin of the left lobe prolapses into the large abdominal hernia. BILIARY: Gallbladder is absent. PANCREAS: Normal. No lesion, fluid collection, ductal dilatation, or atrophy. SPLEEN: Normal. No enlargement or focal lesion. KIDNEYS: Kidneys enhance excrete contrast symmetrically. No hydronephrosis. There is a cyst in the right kidney measuring 1.5 cm. Left lower pole renal cyst measuring 1.7 cm. ADRENALS: Normal. No mass or enlargement. AORTA/VASCULAR: No aortic aneurysm. There are atherosclerotic calcifications of the aorta and branch vessels RETROPERITONEUM: Normal. No mass or adenopathy. BOWEL/MESENTERY: Previously described loop of small bowel with thickened wall is suboptimally evaluated on this examination due to lack of oral contrast. The stomach is partially herniated into the large abdominal hernia. No bowel obstruction or dilatation. Small and large bowel herniates into the large abdominal hernia. ABDOMINAL WALL: Large supraumbilical abdominal hernia containing liver, stomach, large and small bowel. The abdominal wall defect measures 11.9 x 14.2 cm. URINARY BLADDER: Partially distended Continued Report - Page 2 of 2 Patient: MEL WALL Phone#: : 1985 Age: 37 Gender: F Pt. Type: ER Account: [id number] Location: [facility] Ordering: TOM NIÑO Exam Date: 11/22/2022/0:33 Family Phys: Charge Code: [id number] Physician: Maricao Order #: [id number] Dose#: [id number] PELVIC NODES: Normal. No adenopathy. PELVIC ORGANS: Uterus is present. No adnexal mass. Surgical clips in the adnexa most consistent with tubal ligation. BONES: Stable bone island in the T9 vertebral body. LUNG BASES: Normal. No visible pulmonary or pleural disease. OTHER: Negative. CONCLUSION: 1. Large supraumbilical ventral hernia. Hernia contains stomach, small, large bowel and portions of the liver. No obstruction. Dictated by: Rina Clark MD on 11/22/2022 at 15:06 Approved by: Rina Clark MD on 11/22/2022 at 15:19 Normal [facility] LACTATEon 11-22-2022 Lactate [Moles/Vol] 1.5 mmol/L Normal 0.4 - 2.0 [facility] Comment on above: Performed By: #### 2 43292 #### [facility],[address] [place] [address] LIPASEon 11-22-2022 Lipase [Catalytic activity/Vol] 128.0 U/L Normal 73.0 - 393 [facility] Comment on above: Performed By: #### 2 12884 #### [facility],[address] [place] [address] 83824 SERUM QUALon 11-22 EXTERNAL QC DONE? YES Normal [facility] Comment on above: Performed By: #### 2 97983 #### [facility],[address] [place], [place] [id number] INTERNAL QC PASS Normal [facility] Comment on above: Performed By: #### 2 76523 #### [facility],[address] [place], [place] [id number] SER Negative Normal NEGATIVE [facility] Comment on above: Performed By: #### 2 03291 #### [facility],[address] [place] [address] 73920 CBC + DIFFon 11-16-2022 Baso # 0.25 x10EE3/UL High 0.00 - 0.10 [facility] Comment on above: Performed By: #### 2 56816 #### [facility],[address] [place] [address] 64372 Basophils/100 WBC (Bld) 2.0 % Normal 0.0 - 2.0 [facility] Comment on above: Performed By: #### 2 78774 #### [facility],[address] [place] [address] 69278 CBC + DIFF Normal [facility] Comment on above: Result Comment: CBC- COMPLETE BLOOD COUNT Performed By: #### 2 94323 #### [facility],[address] [place] [address] 46739 CELL COUNT 100 Normal [facility] Comment on above: Performed By: #### 2 18337 #### [facility],[address] [place] [address] 93867 EO 2.0 % Normal 0.0 - 4.0 [facility] Comment on above: Performed By: #### 2 91682 #### [facility],[address] [place] [address] EO # 0.25 x10EE3/UL Normal 0.00 - 0.50 [facility] Comment on above: Performed By: #### 2 92028 #### [facility],[address] [place] [address] Erythrocyte distribution width (RBC) [Ratio] 13.5 % Normal 12.0 - 15.6 [facility] Comment on above: Performed By: #### 2 58332 #### [facility],[address] [place] [address] Hematocrit (Bld) [Volume fraction] 39.6 % Normal 34.0 - 46.0 [facility] Comment on above: Performed By: #### 2 29476 #### [facility],[address] [place] [address] Hemoglobin (Bld) [Mass/Vol] 13.5 g/dL Normal 12.0 - 16.0 [facility] Comment on above: Performed By: #### 2 19824 #### [facility],[address] [place] [address] Lymph # 3.30 x10EE3/UL High 0.80 - 2.80 [facility] Comment on above: Performed By: #### 2 02008 #### [facility],[address] [place] [address] Lymphocytes/100 WBC (Bld) 26 % Normal 20 - 40 [facility] Comment on above: Performed By: #### 2 91187 #### [facility],[address] [place] [address] MANUAL DIFF SEE BELOW Normal [facility] Comment on above: Performed By: #### 2 04988 #### [facility],[address] [place] [address] MCH (RBC) [Entitic mass] 31 pg Normal 27 - 33 [facility] Comment on above: Performed By: #### 2 35899 #### [address],[place] [address] MCHC 34 X10 3 Normal 32 - 36 [facility] Comment on above: Performed By: #### 2 98739 #### [facility],[address] [place] [address] MCV (RBC) [Entitic vol] 90 fL Normal 80 - 99 [facility] Comment on above: Performed By: #### 2 34796 #### [facility],[address] [place] [address] [place]ton # 0.38 x10EE3/UL Normal 0.20 - 1.00 [facility] Comment on above: Performed By: #### 2 58511 #### [facility],[address] [place] [address] MONOS 3 % Normal 0 - 8 [facility] Comment on above: Performed By: #### 2 12346 #### [facility],[address] [place] [address] Morphology Juve (Bld) [Interp] REVIEWED Normal [facility] Comment on above: Result Comment: {CD] Performed By: #### 2 98460 #### [facility],[address] [place] [address] Neut # 8.51 x10EE3/UL High 1.50 - 7.10 [facility] Comment on above: Performed By: #### 2 39493 #### [facility],[address] [place] [address] PLATELET 325 x10EE3/UL Normal 150 - 450 [facility] Comment on above: Performed By: #### 2 42003 #### [facility],[address] [place] [address] Platelet mean volume (Bld) [Entitic vol] 6.7 fL Normal 6.6 - 10.5 [facility] Comment on above: Result Comment: AUTO MATED DIFFERENTIAL Performed By: #### 2 19297 #### [facility],[address] [place] [address] RBC 4.40 x 10EE6/UL Normal 4.10 - 5.30 [facility] Comment on above: Performed By: #### 2 47469 #### [facility],[address] [place] [address] SEGS 67 % Normal 50 - 70 [facility] Comment on above: Performed By: #### 2 01640 #### [facility],[address] [place] [address] WBC 12.7 x 10EE3/UL High 4.5 - 10.8 [facility] Comment on above: Performed By: #### 2 71577 #### [facility],[address] [place] [address] CMP with eGFRon 11-16-2022 AGE 37 years Normal [facility] Comment on above: Performed By: #### 2 12013 #### [facility],[address] [place] [address] Albumin [Mass/Vol] 3.7 g/dL Normal 3.4 - 5.0 [facility] Comment on above: Performed By: #### 2 85039 #### [facility],[address] [place] [address] Albumin/Globulin [Mass ratio] 1.1 {ratio} Normal 0.9 - 1.6 [facility] Comment on above: Performed By: #### 2 74281 #### [facility],[address] [place] [address] ALK PHOS 48 U/L Normal 46 - 116 [facility] Comment on above: Performed By: #### 2 05122 #### [facility],[address] [place], [place] [id number] ALT [Catalytic activity/Vol] 19 U/L Normal 14 - 59 [facility] Comment on above: Performed By: #### 2 44214 #### [facility],[address] [place] [address] Anion gap [Moles/Vol] 13 mmol/L Normal 10 - 20 [facility] Comment on above: Performed By: #### 2 01764 #### [facility],[address] [place] [address] AST [Catalytic activity/Vol] 11 U/L Low 13 - 39 [facility] Comment on above: Performed By: #### 2 86603 #### [facility],[address] [place] [address] B/C RATIO 35 ratio High 0 - 30 [facility] Comment on above: Performed By: #### 2 64647 #### [facility],[address] [place] [address] Bilirubin [Mass/Vol] 0.1 mg/dL Low 0.2 - 1.0 [facility] Comment on above: Performed By: #### 2 59091 #### [facility],[address] [place] [address] Calcium [Mass/Vol] 9.0 mg/dL Normal 8.5 - 10.1 [facility] Comment on above: Performed By: #### 2 21877 #### [facility],[address] [place] [address] Chloride [Moles/Vol] 101 mmol/L Normal 98 - 107 [facility] Comment on above: Performed By: #### 2 16915 #### [facility],[address] [place] [address] CMP with eGFR Normal [facility] Comment on above: Result Comment: COMP REHENSIVE METABOLIC PANEL Performed By: #### 2 37664 #### [facility],[address] [place] [address] CO2 [Moles/Vol] 25.7 mmol/L Normal 21.0 - 32.0 [facility] Comment on above: Performed By: #### 2 30723 #### [facility],[address] [place] [address] Creatinine [Mass/Vol] 0.49 mg/dL Low 0.55 - 1.02 [facility] Comment on above: Performed By: #### 2 23824 #### [facility],[address] [place] [address] GFR/1.73 sq M.predicted among non-blacks MDRD (S/P/Bld) [Vol rate/Area] mL/min/{1.73_m2} Normal 60 - 999 [facility] Comment on above: Performed By: #### 2 80047 #### [facility],[address] [place] [address] Result Comment: ACCO RDING TO THE NATIONAL KIDNEY DISEASE EDUCATION PROGRAM(NKDE), A NORMAL eGFR IS A VALUE GREATER THAN OR EQUAL TO 60 ML/MIN/1.73 SQ METERS. CHRONIC KIDNEY DISEASE: <60mL/MIN/1.73 SQ METERS KIDNEY FAILURE: <15mL/MIN/1.73 SQ METERS THIS TEST SHOULD ONLY BE USED FOR PATIENTS 18 YEARS OF AGE AND OLDER. Globulin (S) [Mass/Vol] 3.3 g/dL Normal 1.5 - 3.8 [facility] Comment on above: Performed By: #### 2 19420 #### [place] [address] Glucose [Mass/Vol] 107 mg/dL High 74 - 106 [facility] Comment on above: Performed By: #### 2 59370 #### [place] [address] Potassium [Moles/Vol] 3.9 mmol/L Normal 3.5 - 5.1 [facility] Comment on above: Performed By: #### 2 13246 #### [place] [address] Protein [Mass/Vol] 7.0 g/dL Normal 6.4 - 8.2 [facility] Comment on above: Performed By: #### 2 60218 #### [place] [id number] Sodium [Moles/Vol] 136 mmol/L Normal 136 - 145 [facility] Comment on above: Performed By: #### 2 42862 #### [facility],[address] [place] [address] Urea nitrogen [Mass/Vol] 17 mg/dL Normal 7 - 18 [facility] Comment on above: Performed By: #### 2 38616 #### [facility],[address] [place] [address] CORONAVIRUS (SARS) ANTIGEN T ESTon 11-16-2022 EXTERNAL QC DONE? YES Normal [facility] Comment on above: Performed By: #### 2 51643 #### [facility],[address] [place] [address] INTERNAL CONTROL PASS Normal [facility] Comment on above: Performed By: #### 2 54856 #### [facility],[address] [place] [address] SARS ANTIGEN Negative Normal NORMAL: NEGATIVE [facility] Comment on above: Performed By: #### 2 48643 #### [facility],[address] [place] [address] SEND TO ? NO Normal [facility] Comment on above: Result Comment: SARS -CoV-2 THIS TEST IS BEING USED UNDER THE FDA EUA PROCEDURE. THIS ASSAY HAS BEEN VALIDATED AT [facility] FOR USE WITH NASAL AND NASOPHARYNGEAL SWAB SPECIMENS. INTERPRETIVE DATA TEST RESULTS SHOULD ALWAYS BE CONSIDERED IN THE CONTEXT OF CLINICAL OBSERVATIONS AND EPIDEMIOLOGICAL DATA IN MAKING FINAL DIAGNOSIS AND PATIENT MANAGEMENT DECISIONS. PATIENT MANAGEMENT SHOULD FOLLOW CURRENT CDC GUIDELINES. THE MADINA SARS ANTIGEN RONALD DOES NOT DIFFERENTIATE BETWEEN SARS-CoV & SARS-CoV-2. A POSITIVE TEST RESULT INDICATES THE PRESENCE OF SARS-CoV-2 NUCLEOCAPSID PROTEIN ANTIGEN, AND THE PATIENT IS INFECTED WITH THE VIRUS AND PRESUMED TO BE CONTAGIOUS. A NEGATIVE TEST RESULT FOR THIS TEST MEANS THAT SARS-CoV-2 NUCLEOCAPSID PROTEIN ANTIGEN WAS NOT PRESENT IN THE SPECIMEN ABOVE THE LIMIT OF DETECTION. HOWEVER, A NEGATIVE RESULT DOES NOT RULE OUT COVID-19 AND SHOULD NOT BE USED THE SOLE BASIS FOR TREATMENT OR PATIENT MANAGEMENT DECISIONS. A NEGATIVE RESULT DOES NOT EXCLUDE THE POSSIBILITY OF COVID-19. NEGATIVE RESULTS, FROM PATIENTS WITH SYMPTOM ONSET BEYOND FIVE DAYS, SHOULD BE TREATED PRESUMPTIVE AND CONFIRMATION WITH A MOLECULAR ASSAY, IF NECESSARY, FOR PATIENT MANAGEMENT, MAY BE PERFORMED. WHEN DIAGNOSTIC TESTING IS NEGATIVE, THE POSSIBLILTY OF A FALSE NEGATIVE RESULT SHOULD BE CONSIDERED IN THE CONTEXT OF A PATIENT'S RECENT EXPOSURES AND THE PRESENCE OF CLINICAL SIGNS AND SYMPTOMS CONSISTENT WITH COVID-19. THE POSSIBILITY OF A FALSE NEGATIVE RESULT SHOULD ESPECIALLY BE CONSIDERED IF THE PATIENT'S RECENT EXPOSURES OR CLINICAL PRESENTATION INDICATE THAT COVID-19 IS LIKELY, AND DIAGNOSTIC TESTS FOR OTHER CAUSES OF ILLNESS (e.g., OTHER RESPIRATORY ILLNESS) ARE NEGATIVE. IF COVID-19 IS STILL SUSPECTED BASED ON EXPOSURE HISTORY TOGETHER WITH OTHER CLINICAL FINDINGS, RE-TESTING SHOULD BE CONSIDERED BY HEALTHCARE PROVIDERS IN CONSULTATION WITH PUBLIC HEALTH AUTHORITIES. Performed By: #### 2 32249 #### [facility],[address] [place] [address] CT ABDOMEN/PELVIS Won 2022 CT ABDOMEN/PELVIS W [place] [address] Patient: MEL WALL Phone#: : 1985 Age: 37 Gender: F Pt. Type: ER Account: [id number] Location: [facility] Ordering: ALISA MCDONALD Exam Date: 11/16/2022/3:20 Family Phys: Charge Code: [id number] Physician: Maricao Order #: [id number] Dose#: [id number] PROCEDURE: CT ABDOMEN/PELVIS WITH CONTRAST COMPARISON: [facility], CT, ABDOMEN/PELVIS W CON, 07/29/2021, 21:51. INDICATIONS: Abdominal pain. TECHNIQUE: After obtaining the patient's consent, CT images were created with non-ionic intravenous contrast material. All CT scans at this facility use dose modulation, iterative reconstruction, and/or weight based dosing when appropriate to reduce radiation dose to as low as reasonably achievable. IV CONTRAST: Omnipaque 350,80ml TOTAL DOSE: 36.20 CTDIvol(mGy) FINDINGS: LIVER: Anterior margin of the left lobe of the liver prolapses into the large ventral hernia. No enlargement, atrophy, abnormal density, or significant focal lesion. BILIARY: Gallbladder is absent. Common bile duct measures 0.8 cm. PANCREAS: Normal. No lesion, fluid collection, ductal dilatation, or atrophy. SPLEEN: Normal. No enlargement or focal lesion. KIDNEYS: Kidneys enhance and excrete contrast symmetrically. Low-attenuation lesions in the left kidney, too small to characterize. There is a cyst in the right kidney measuring 1.7 cm. ADRENALS: Normal. No mass or enlargement. AORTA/VASCULAR: No aortic aneurysm. RETROPERITONEUM: Normal. No mass or adenopathy. BOWEL/MESENTERY: Large midline hernia containing portions of the stomach, multiple loops of small bowel and transverse and descending colon. Thickening of small bowel in the mid abdomen, series 4, image 29. The thickened wall measures 1.3 cm. Appendix is not visualized. Moderate stool burden in the right colon. ABDOMINAL WALL: Large supraumbilical ventral hernia. The opening measures 11.1 x 13.1 cm. URINARY BLADDER: Normal. No visible focal wall thickening, lesion, or calculus. PELVIC NODES: Normal. No adenopathy. Continued Report - Page 2 of 2 Patient: MEL WALL Phone#: : 1985 Age: 37 Gender: F Pt. Type: ER Account: [id number] Location: [facility] Ordering: ALISA MCDONADL Exam Date: 11/16/2022/3:20 Family Phys: Charge Code: [id number] Physician: Maricao Order #: [id number] Dose#: [id number] PELVIC ORGANS: Uterus is present. No adnexal mass. Tubal ligation clips noted in the pelvis. BONES: There is a bone island in the T9 vertebral body. LUNG BASES: There are dependent changes. OTHER: Negative. CONCLUSION: 1. Small bowel wall thickening in the mid low abdomen. Differential includes infectious or inflammatory etiologies, cannot other etiologies. Recommend follow-up to confirm resolution. 2. Large ventral hernia containing stomach, small and large bowel and portions of the liver. Dictated by: Rina Clark MD on 11/16/2022 at 11:59 Approved by: Rina Clark MD on 11/16/2022 at 12:18 Normal [facility] LACTATEon 11-16-2022 Lactate [Moles/Vol] 1.0 mmol/L Normal 0.4 - 2.0 [facility] Comment on above: Performed By: #### 2 72340 #### [facility],[address] [place] [address] LIPASEon 11-16-2022 Lipase [Catalytic activity/Vol] 347.0 U/L Normal 73.0 - 393 [facility] Comment on above: Performed By: #### 2 63463 #### [facility],[address] [place] [address] URINEon 11-16-2022 Beta HCG ( test) Ql (U) Negative Normal NEGATIVE [facility] Comment on above: Performed By: #### 2 22163 #### [facility],[address] [place] [address] EXTERNAL QC DONE? YES Normal [facility] Comment on above: Performed By: #### 2 25809 #### [facility],[address] [place] [address] INTERNAL QC PASS Normal [facility] Comment on above: Performed By: #### 2 34013 #### [facility],[address] [place] [address]147 URINALYSISon 11-16-2022 Bilirubin Ql (U) Negative Normal NORMAL: NEGATIVE [facility] Comment on above: Performed By: #### 2 49462 #### [facility],[address] [place], [place] [id number] Clarity (U) CLEAR Normal NORMAL: CLEAR [facility] Comment on above: Performed By: #### 2 44430 #### [facility],[address] [place] [address] 83210 Color (U) p.yel Normal NORMAL: YELLOW [facility] Comment on above: Performed By: #### 2 82347 #### [facility],[address] [place] [id number] Glucose Ql (U) NORM Normal NORMAL: NORMAL [facility] Comment on above: Performed By: #### 2 [id number] #### [facility],[address] [place], [place] [id number] Hemoglobin Ql (U) Negative Normal NORMAL: NEGATIVE [facility] Comment on above: Performed By: #### 2 49713 #### [facility],[address] [place] [address] Ketone Negative Normal NORMAL: NEGATIVE [facility] Comment on above: Performed By: #### 2 64439 #### [facility],[address] [place] [address] Leukocytes Negative Normal NORMAL: NEGATIVE [facility] Comment on above: Performed By: #### 2 68544 #### [facility],[address] [place], [place] [id number] Nitrite Ql (U) Negative Normal NORMAL: NEGATIVE [facility] Comment on above: Performed By: #### 2 07010 #### [facility],[address] [place] [address] pH (U) 5 [pH] Normal NORMAL: 5.0-8.0 [facility] Comment on above: Performed By: #### 2 02616 #### [facility],[address] [place], [place] [id number] Protein Ql (U) Negative Normal NORMAL: NEGATIVE [facility] Comment on above: Performed By: #### 2 56212 #### [facility],[address] [place], [place] [id number] Sp Hennessey 1.020 Normal NORMAL: 1.010-1.03 0 [facility] Comment on above: Performed By: #### 2 06808 #### [facility],[address] [place] [address] Specimen Type Void Normal [facility] Comment on above: Performed By: #### 2 43547 #### [facility],[address],[place] [address] Urinalysis dipstick W Reflex Microscopic panel (U) NOT INDICATED Normal [facility] Comment on above: Performed By: #### 2 98688 #### [facility],[address] [place], [place] [id number] Urobilinog NORM Normal NORMAL: NORMAL [facility] Comment on above: Performed By: #### 2 94327 #### [facility],[address] [place], [place] [id number] CNOVon 10-29-2022 CNOV Office Visit (UCWSTR ) MEL WALL ([id number]) 1985 F CHT Date Time Provider Department 10/29/22 1:30 PM CHAD LILLY [facility] During your visit today, we recorded the following information about you: Temperature Pulse Respiration Blood pressure 98.2 degrees 87/minute 20/minute 126/88 Weight 113.9 kg Chad Lilly APRN.WIRE INSERTER 10/29/2022 2:08 PM Signed Subjective HPI HPI Mel Livingston Duke is a 37 year old female who presents today for CC of dental pain at broken tooth. This started 2 days ago. Has tried otc medication for relief. Symptoms are worsened by nothing. Risk factors hx of dental infections. Denies possibility of being . .Patient presents with: Dental Problem: Broken tooth that is now infected x2 days PAST MEDICAL HISTORY Diagnosis Date Abdominal wall mass of left lower quadrant 07/24/2013 Scar tissue with abscess. Resolved Anxiety Bipolar 1 disorder (HCC) Chronic pain syndrome 08/06/2019 Seeing [facility]: Dr. Moore Depression Headache(784.0) 10/18/2013 Obesity, Class III, BMI 40-49.9 (morbid obesity) (HCC) 01/24/2018 Panic disorder 11/05/[address] Dukes Social phobia 11/05/2014 Ventral hernia 12/21/2019 PAST SURGICAL HISTORY Procedure Laterality Date APPENDECTOMY HX 2007 DELIVERY ONLY COLONOSCOPY 2007 EXC TUMOR SOFT TISSUE ABDOMINAL WALL SUBQ 3+CM 08/02/13 LLQ prior incision, stitch granuloma/chronic abscess INCISION AND DRAINAGE COMPLEX PO WOUND INFECTION 08/09/13 LAPS SURG CHOLECYSTECTOMY W/CHOLANGIOGRAPHY 03-08-07 PAST SURGICAL HISTORY OF hernia repair x6 PAST SURGICAL HISTORY OF 06/10/2019 Open lysis of adhesions JANLE-EN-Y W/GASTROENTEROS 10/23/2008 Division of the duodenum with Janel-en-Y duodenojejunostomy - op note describes a duodenal switch procedure TUBAL LIGATION, ALLERGIES Toradol [Ketorolac] and Zofran [Ondansetron Hcl (Pf)] MEDICATIONS busPIRone HCl 30 mg tablet take 1/2 tablet by mouth every morning and 1 tablet every evening FLUoxetine (PROZAC) 40 mg capsule Take 2 capsules by mouth once daily. amoxicillin (AMOXIL) 875 mg tablet Take 1 tablet by mouth twice daily for 10 days. FAMILY HISTORY Problem Relation Age of Onset Panic Disorder Mother Anxiety disorder Mother Bipolar disorder Mother Depression Mother Cervical Cancer Mother Cancer Mother ovarian cancer Coronary Artery Disease Father 53 Diabetes Father Hypertension Father Cancer Sister ovarian cancer Coronary Artery Disease Maternal Uncle 50's Cancer Maternal Grandmother ovarian cancer Osteoporosis Maternal Grandmother Cancer Paternal Grandmother ovarian cancer Diabetes Paternal Grandmother Social History Tobacco Use Smoking status: Former Packs/day: 0.50 Years: 1.00 Pack years: 0.50 Types: Cigarettes Quit date: 11/10/2011 Years since quittin.9 Smokeless tobacco: Never Substance Use Topics Alcohol use: Not Currently Drug use: Yes Types: Marijuana Comment: for anxiety and for sleep ROS Objective Blood pressure 126/88, pulse 87, temperature 36.8 ?C (98.2 ?F), resp. rate 20, weight 113.9 kg (251 lb 3.2 oz), last menstrual period 05/27/2021, SpO2 97 %. Physical Exam Constitutional: General: She is not in acute distress. Appearance: She is not toxic-appearing or diaphoretic. HENT: Head: Normocephalic and atraumatic. Nose: Nose normal. Mouth/Throat: Lips: [place]. Mouth: Mucous membranes are moist. Dentition: Abnormal dentition. Dental tenderness and dental caries present. No gum lesions. Pulmonary: Effort: Pulmonary effort is normal. No accessory muscle usage or respiratory distress. Lymphadenopathy: Cervical: No cervical adenopathy. Right cervical: No superficial cervical adenopathy. Left cervical: No superficial cervical adenopathy. Neurological: Mental Status: She is alert and oriented to person, place, and time. ASSESSMENT/PLAN: 1. Toothache - ICD9: 525.9, ICD10: K08.89 Take medication as ordered See dentist anne Follow up if signs of infection worsen - AMOXICILLIN 875 MG TABLET Chad Lilly APRN.CNP Allergies As of Date: 10/29/2022 Noted Allergy Reaction TORADOL (KETOROLAC) 07/24/2013 4 - Hives 12 - Shortness of Breath ZOFRAN (ONDANSETRON HCL (PF)) 07/24/2013 4 - Hives 12 - Shortness of Breath Date Reviewed: 10/29/2022 Reviewed by: Chad Lilly APRN.WIRE INSERTER - Fully Assessed Reason for Visit: Dental Problem [31] Cmt: Broken tooth that is now infected x2 days Primary Visit Diagnosis:Toothache [K08.89] Order(s):amoxicillin (AMOXIL) 875 mg tabletTake 1 tablet by mouth twice daily for 10 days.Disp: 20 tabletRfl: 0 Prescriptions as of 10/29/2022 - busPIRone HCl 30 mg tablet take 1/2 tablet by mouth every morning and 1 tablet every evening - FLUoxetine (PROZAC) 40 mg capsule Take 2 caps (more content not included)... Normal [facility] Basic Metabolic Profile (BMP )on 09-08-2022 CA,Total 8.8 mg/dL Normal 8.5-10.1 [facility] Comment on above: Performed By: #### L 100.0100, L500.2500, L500.3400, L503.6005 ####[facility] [address] [place], [address] Chloride [Moles/Vol] 104 mmol/L Normal 98-107 [facility] Comment on above: Performed By: #### L 100.0100, L500.2500, L500.3400, L503.6005 ####[facility] [address] [place], [address] CO2 [Moles/Vol] 25.0 mmol/L Normal 21.0-32.0 [facility] Comment on above: Performed By: #### L 100.0100, L500.2500, L500.3400, L503.6005 ####[facility] [address] [place], [address] GAP 11 Normal 5-15 [facility] Comment on above: Performed By: #### L 100.0100, L500.2500, L500.3400, L503.6005 ####[facility] [address] [place], [address] Potassium [Moles/Vol] 2.9 mmol/L Low 3.5-5.1 [facility] Comment on above: Performed By: #### L 100.0100, L500.2500, L500.3400, L503.6005 ####[facility] [address] [place], [address] Sodium [Moles/Vol] 140 mmol/L Normal 136-145 [facility] Comment on above: Performed By: #### L 100.0100, L500.2500, L500.3400, L503.6005 ####[facility] [address] [place], [address] BUN/CRE 28.5 RATIO High 10-20 [facility] Comment on above: Performed By: #### L 100.0100, L500.2500, L500.3400, L503.6005 ####[facility] [address] [place], [address] Creatinine [Mass/Vol] 0.74 mg/dL Normal 0.55-1.02 [facility] Comment on above: Result Comment: The validity of the calculated GFR GFRAA in patients over 70 years has not been determined. Clinical correlation is essential. Performed By: #### L 100.0100, L500.2500, L500.3400, L503.6005 ####[facility] [address] [place], [address] ECRCL 93.66 ml/min Normal [facility] Comment on above: Performed By: #### L 100.0100, L500.2500, L500.3400, L503.6005 ####[facility] [address] [place], [address] EST GFR - AA 114 mL/min Normal >60 [facility] Comment on above: Result Comment: Afri can Eritrean GFR Calc Performed By: #### L 100.0100, L500.2500, L500.3400, L503.6005 ####[facility] [address] [place], [address] GFR/1.73 sq M.predicted among non-blacks MDRD (S/P/Bld) [Vol rate/Area] 94 mL/min/{1.73_m2} Normal >60 [facility] Comment on above: Result Comment: Non- GFR Calc Performed By: #### L 100.0100, L500.2500, L500.3400, L503.6005 ####[facility] [address] [place], [address] Glucose [Mass/Vol] 141 mg/dL High 74-106 [facility] Comment on above: Result Comment: Fast ing Glucose result greater than or equal to 126 mg/dL suggests DIABETES MELLITUS per A.D.A. criteria. Performed By: #### L 100.0100, L500.2500, L500.3400, L503.6005 ####[facility] [address] [place], [address] Urea nitrogen [Mass/Vol] 21 mg/dL High 7-18 [facility] Comment on above: Performed By: #### L 100.0100, L500.2500, L500.3400, L503.6005 ####[facility] [address] [place], [place], [id number] Basophil percentageon 2021 Lactate [Moles/Vol] 2.3 mmol/L 0.4-2.0 [facility] Work Phone: Comment on above: Critical Result(s) C alled at: 03:13:27 09/08/2022 by: RAMO GRANADOS RN (ED) Results read back by same.Previous reported result: 2.3 mmol/LEdited by: MIGUEL on 09/08/22:0308 CBC W/Diff, Automatedon 08-12 Absolute Lymph 2.46 X10 3/uL Normal 0.83-4.51 [facility] Comment on above: Performed By: #### L 100.0100, L500.2500, L500.3400, L503.6005 ####[facility] [address] [place], [place], [phone] Absolute Neut 7.1 X10 3/uL Normal 2.0-7.7 [facility] Comment on above: Performed By: #### L 100.0100, L500.2500, L500.3400, L503.6005 ####[facility] [address] [place], [place], [phone] IG% 0.700 Normal 0.0-0.9 [facility] Comment on above: Result Comment: IG% - Immature Granulocytes (promyelocytes, myelocytes and metamyelocytes) > 1% indicates that a LEFT SHIFT is Present. Performed By: #### L 100.0100, L500.2500, L500.3400, L503.6005 ####[facility] [address] [place], [place], [phone] Nucleated RBC (Bld) [#/Vol] 0 10*3/uL Normal 0-5 [facility] Comment on above: Performed By: #### L 100.0100, L500.2500, L500.3400, L503.6005 ####[facility] [address] [place], [address] RDW SD 43.8 fl Normal 35.1-43.9 [facility] Comment on above: Performed By: #### L 100.0100, L500.2500, L500.3400, L503.6005 ####[facility] [address] [place], [address] Emergency Department Summary on 09-08-2022 Emergency Department Summary [facility] Medical Records Department [address] [facility] [place] [place] [address] Emergency Department Summary 09/08/22 MR#: [id number] Acct: [id number] Name: MEL WALL Rep #: [id number] : 1985 37 From: Michelle Orourke MD PCP: Dr. Jose Barron MD Status:REG ER Location: ED HPI History of Present Illness Chief Complaint: Abd Pain Informant: patient Onset/Context/Timing Onset: Days Context: Gradual Onset Timing: Waxes and wanes Current Severity: Severe Maximum Severity: Severe Narrative Narrative: Patient presents secondary to abdominal pain from her large ventral hernia. She has a large ventral hernia is been a recurrent problem for her. She is currently following with a specialist at [facility] and plan is for hernia repair once her BMI is down under 40. She is been working on losing weight so that she can have her surgery. She reports increased pain to the hernia site over the past 2 days. She called her surgeon at [facility] who encouraged her to come to the emergency room. She denies fever or chills. She reports nausea. Last bowel movement was earlier this morning and was liquid. [facility] Medical History Acute narcotic withdrawal Anxiety and depression Elevated BP without diagnosis of hypertension GERD (gastroesophageal reflux disease) History of anxiety disorder Hypokalemia due to excessive gastrointestinal loss of potassium Intractable abdominal pain Morbid obesity JAGJIT (obstructive sleep apnea) Partial small bowel obstruction Postoperative lower abdominal pain Sinus tachycardia by electrocardiogram Home Medications buspirone 15 mg tablet 15 mg PO TID 03/20/22 [History Last Taken Unknown] fluoxetine 40 mg capsule 40 mg PO DAILY 03/20/22 [History Last Taken Unknown] promethazine 25 mg tablet 25 mg PO TID PRN nausea and vomiting #20 tabs 09/08/22 [Rx Last Taken Unknown] tramadol 100 mg tablet 100 mg PO BID PRN pain #6 tabs 09/08/22 [Rx Last Taken Unknown] Allergy/AdvReac Type Severity Reaction Status Date / Time ketorolac tromethamine Allergy Shortness Verified 09/07/22 20:50 [From Toradol] of breath ondansetron HCl [From Zofran] Allergy Shortness Verified 09/07/22 20:50 of breath Surgical History History of History of hysterectomy History of laparoscopic appendectomy History of laparoscopic cholecystectomy Hx of ventral hernia repair Recurrent ventral hernia with incarceration Social History Smoking Status: Former smoker how long ago did patient quit smokin years ROS ROS ED Constitutional Constitutional ED: Denies chills or fever(s) Eyes Eyes: Denies change in vision or discharge from eye(s) ENT ENT ED: Denies discharge from eye(s), rhinorrhea or sore throat Cardiovascular Cardiovascular: Denies chest pain or palpitations Respiratory/Chest Respiratory/Chest: Denies cough or dyspnea Gastrointestinal Gastrointestinal: Reports abdominal pain, nausea and vomiting Genitourinary Genitourinary ED: Denies dysuria Musculoskeletal Musculoskeletal: Denies back pain or extremity pain Integumentary Denies Abrasions or rash Neurologic Neurologic: Denies headache(s) or weakness Psychiatric Psychiatric: Denies anxiety or depression Allergic/Immunologic Allergic/Immunologic ED: Denies lip swelling or urticaria EXAM Physical Exam Const Vital Signs: 09/07/22 20:45 09/07/22 22:44 09/08/22 00:00 Temperature 98.6 F Temperature Source Temporal Pulse Rate 136 H 93 Respiratory Rate 22 H 15 Blood Pressure 132/69 H 120/54 L Blood Pressure Mean 90 76 Pulse Ox 96 98 100 Oxygen Delivery Method Room Air Room Air Room Air Positive well nourished and well developed General Appearance ED: well developed HEENT Reports normocephalic and head/scalp atraumatic Eyes PERRL and EOMs intact bilaterally Neck supple Chest Wall inspection of chest normal and palpation of chest normal Resp normal respiratory effort and clear to auscultation bilaterally Cardio regular rhythm Rate: tachycardic GI GI Narrative: Patient has a large ventral hernia. Area is tender. No evidence of incarceration on exam. Bowel sounds are noted on auscultation. Palpation: soft Extremity normal to inspection Neuro oriented x3 and no sensory deficits noted Sensorium / Orientation: alert Motor Exam: strength 5/5 throughout Psych Mood Affect: anxious Skin no rashes or lesions noted MDM MDM MDM Narrative Medical decision making narrative: Patient given single dose of morphine and Reglan here while obtaining work-up. She states she became jittery with Reglan and required a dose of Benadryl. Lab (more content not included)... Normal [facility] Lactic Acidon 09-08-2022 Lactate [Moles/Vol] 2.3 mmol/L Invalid Interpretation Code 0.4-1.9 [facility] Comment on above: Result Comment: Crit ical Result(s) Called at: 03:13:27 09/08/2022 by: RAMO GRANADOS RN (ED) Results read back by same. Performed By: #### L 503.6005 ####[facility] [address] [place], [address] Lactate [Moles/Vol] 4.2 mmol/L Invalid Interpretation Code 0.4-1.9 [facility] Comment on above: Order Comment: Y Result Comment: Crit ical Result(s) Called at: 22:39:09 09/07/2022 by: CELINA SALAS TO JACKY COONEY. Results read back by same. Performed By: #### L 100.0100, L500.2500, L500.3400, L503.6005 ####[facility] [address] [place], [address] Liver Profileon 09-08-2022 ALK P 44 U/L Low 45-117 [facility] Comment on above: Performed By: #### L 100.0100, L500.2500, L500.3400, L503.6005 ####[facility] [address] [place], [address] ALT [Catalytic activity/Vol] 17 U/L Normal 13-56 [facility] Comment on above: Performed By: #### L 100.0100, L500.2500, L500.3400, L503.6005 ####[facility] [address] [place], [address] AST [Catalytic activity/Vol] 5 U/L Low 15-37 [facility] Comment on above: Performed By: #### L 100.0100, L500.2500, L500.3400, L503.6005 ####[facility] [address] [place], [address] Bilirubin [Mass/Vol] 0.10 mg/dL Low 0.20-1.00 [facility] Comment on above: Result Comment: For patients on eltrombopag therapy, use of Dimension [place] TBIL is not recommended. Performed By: #### L 100.0100, L500.2500, L500.3400, L503.6005 ####[facility] [address] [place], [address] D BILI < 0.05 Normal 0.00-0.30 [facility] Comment on above: Performed By: #### L 100.0100, L500.2500, L500.3400, L503.6005 ####[facility] [address] [place], [address] Globulin (S) [Mass/Vol] 2.9 g/dL Normal 2.2-4.2 [facility] Comment on above: Performed By: #### L 100.0100, L500.2500, L500.3400, L503.6005 ####[facility] [address] [place], [address] Albumin [Mass/Vol] 3.6 g/dL Normal 3.2-5.0 [facility] Comment on above: Performed By: #### L 100.0100, L500.2500, L500.3400, L503.6005 ####[facility] [address] [place], [address] T PROT 6.5 g/dL Normal 6.4-8.2 [facility] Comment on above: Performed By: #### L 100.0100, L500.2500, L500.3400, L503.6005 ####[facility] [address] [place], [address] Abdomen/Pelvis WITH Contrast on 09-07-2022 Abdomen/Pelvis WITH Contrast [facility] Imaging Services [address] [place] [address] Abdomen/Pelvis WITH Contrast MR#: [id number] Acct: [id number] Name: MEL WALL Rep #: [id number] : 1985 F 37 From: Gustavo Ash DO PCP: Dr. Jose Barron MD Status: REG ER Study: Abdomen/Pelvis WITH Contrast Date of Exam: Exam# [id number] Ordering Dr: Michelle Orourke MD INDICATION: Abdominal pain. Pain began in the back yesterday pain in the region of prior hernia surgery EXAMINATION: CT ABDOMEN AND PELVIS WITH CONTRAST - CT Abdomen And Pelvis W/ Contrast Injection TECHNIQUE: Helically acquired images were obtained of the abdomen and pelvis following IV contrast. A radiation dose optimization technique was used for this scan. IV Contrast dosage and agent: 100 mL of Isovue 370 Oral contrast: Gastrografin. COMPARISON: March 21, 2022. FINDINGS: LOWER CHEST: Lung bases are clear. No cardiomegaly or pericardial effusion. LIVER: Liver is enlarged but uniform in density No focal mass. GALLBLADDER AND BILIARY TREE: The gallbladder is nonvisualized consistent with cholecystectomy. No biliary ductal dilatation. PANCREAS: No focal cystic or solid mass. SPLEEN: Splenomegaly without mass. ADRENAL GLANDS: No nodules. KIDNEYS AND URETERS: Right kidney is malrotated. There is a small cyst in the upper pole. An exophytic cyst off the lower pole of the left kidney. No hydronephrosis. Normal visualized ureters. PERITONEUM: No ascites or free air. No other fluid collection. BOWEL: No evidence of acute appendicitis. There is a larger ventral hernia containing the body of the stomach as well as the majority of the small bowel right and proximal transverse colon. There is no mass or obstruction. Appendix is not clearly identified. LYMPH NODES: There are VESSELS: Aorta is non-dilated. Normal IVC. URINARY BLADDER: Unremarkable. REPRODUCTIVE ORGANS: Normal uterus. There is evidence of tubal ligation. No adnexal mass. ABDOMINAL WALL: As stated above, there is a large ventral hernia containing small bowel and colon. BONES: Mild degenerative changes lumbar spine. CT/Abdomen/Pelvis WITH Contrast IMPRESSION: 1. Large ventral hernia containing colon and small bowel. There is no evidence of obstruction. 2. No major interval change when compared to March 21, 2022 Electronically Signed: Gustavo Ash DO at 23:38 EST Reading Location ID and State: [address] [place] [address] Tel [phone], Service support , CC: Dr. Jose Barron MD; Dr. 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 [place], [place], [id number] Basophil percentageon 2021 Basophils/100 WBC (Bld) 0.2 % Normal 0-1 [facility] Work Phone: Comment on above: Performed By: #### L 100.0100, L500.2500, L500.3400, L503.6005 ####[facility] [address] [place], [address] Bilirubin [Mass/Vol] 0.10 mg/dL 0.20-1.00 [facility] Work Phone: Comment on above: For patients on eltr ombopag therapy, use of Dimension [place] TBIL is not recommended. Chloride [Moles/Vol] 104 mmol/L 98-107 [facility] Work Phone: Eosinophils/100 WBC (Bld) 1.0 % Normal 0-5 [facility] Work Phone: Comment on above: Performed By: #### L 100.0100, L500.2500, L500.3400, L503.6005 ####[facility] [address] [place], [address] Glucose [Mass/Vol] 141 mg/dL 74-106 [facility] Work Phone: Comment on above: Fasting Glucose resu lt greater than or equal to 126 mg/dL suggests DIABETES MELLITUS per A.D.A. criteria. Neutrophils (Bld) [#/Vol] 7.1 10*3/uL 2.0-7.7 [facility] Work Phone: Neutrophils/100 WBC (Bld) 67.3 % Normal 47-70 [facility] Work Phone: Comment on above: Performed By: #### L 100.0100, L500.2500, L500.3400, L503.6005 ####[facility] [address] [place], [address] Potassium [Moles/Vol] 2.9 mmol/L 3.5-5.1 [facility] Work Phone: Protein [Mass/Vol] 6.5 g/dL 6.4-8.2 [facility] Work Phone: Sodium [Moles/Vol] 140 mmol/L 136-145 [facility] Work Phone: WBC (Bld) [#/Vol] 10.5 10*3/uL Normal 4.4-11.0 [facility] Work Phone: Comment on above: Performed By: #### L 100.0100, L500.2500, L500.3400, L503.6005 ####[facility] [address] [place], [place], [phone] Blood erythrocytes count (nu mber/volume)on 09-07-2022 RBC (Bld) [#/Vol] 3.96 10*6/uL Low 4.2-5.4 [facility] Work Phone: Comment on above: Performed By: #### L 100.0100, L500.2500, L500.3400, L503.6005 ####[facility] [address] [place], [address] Blood hemoglobin measurement (mass/volume)on 09-07-2022 Hemoglobin (Bld) [Mass/Vol] 12.1 g/dL Normal 12.0-15.0 [facility] Work Phone: Comment on above: Performed By: #### L 100.0100, L500.2500, L500.3400, L503.6005 ####[facility] [address] [place], [address] Blood lymphocytes/100 leukoc yteson 09-07-2022 Lymphocytes/100 WBC (Bld) 23.5 % Normal 19-41 [facility] Work Phone: Comment on above: Performed By: #### L 100.0100, L500.2500, L500.3400, L503.6005 ####[facility] [address] [place], [address] Blood monocytes/100 leukocyt eson 09-07-2022 Monocytes/100 WBC (Bld) 7.3 % Normal 0-10 [facility] Work Phone: Comment on above: Performed By: #### L 100.0100, L500.2500, L500.3400, L503.6005 ####[facility] [address] [place], [place], [id number] Blood platelet mean volumeon 09-07-2022 Platelet mean volume (Bld) [Entitic vol] 9.0 fL Normal 6.2-12.0 [facility] Work Phone: Comment on above: Performed By: #### L 100.0100, L500.2500, L500.3400, L503.6005 ####[facility] [address] [place], [place], [id number] CBC W/Diff, Automatedon 08-11 Erythrocyte distribution width (RBC) [Ratio] 12.8 % Normal 11.6-14.6 [facility] Work Phone: Comment on above: Performed By: #### L 100.0100, L500.2500, L500.3400, L503.6005 ####[facility] [address] [place], [place], [id number] MCH (RBC) [Entitic mass] 30.6 pg Normal 27.0-32.0 [facility] Work Phone: Comment on above: Performed By: #### L 100.0100, L500.2500, L500.3400, L503.6005 ####[facility] [address] [place], [place], [id number] Determination of erythrocyte mean corpuscular volume (MCV)on 09-07-2022 MCV (RBC) [Entitic vol] 93.4 fL Normal 81-99 [facility] Work Phone: Comment on above: Performed By: #### L 100.0100, L500.2500, L500.3400, L503.6005 ####[facility] [address] [place], [place], [id number] Direct bilirubinon 2 Bilirubin.direct [Mass/Vol] mg/dL 0.00-0.30 [facility] Work Phone: Laboratory - Chemistry and C hemistry - challengeon 09-07-2022 ALP [Catalytic activity/Vol] 44 U/L 45-117 [facility] Work Phone: ALT [Catalytic activity/Vol] 17 U/L 13-56 [facility] Work Phone: [phone] CO2 [Moles/Vol] 25.0 mmol/L 21.0-32.0 [facility] Work Phone: Globulin (S) [Mass/Vol] 2.9 g/dL 2.2-4.2 [facility] Work Phone: Urea nitrogen/Creatinine [Mass ratio] 28.5 mg/mg 10-20 [facility] Work Phone: Laboratory - Hematology and Cell countson 09-07-2022 Erythrocyte distribution width (RBC) [Entitic vol] 43.8 fL 35.1-43.9 [facility] Work Phone: Immature granulocytes/100 WBC (Bld) 0.700 % 0.0-0.9 [facility] Work Phone: Comment on above: IG% - Immature Granu locytes (promyelocytes, myelocytes and metamyelocytes) > 1% indicates that a LEFT SHIFT is Present. Nucleated RBC/100 WBC (Bld) [Ratio] 0 % 0-5 [facility] Work Phone: MCHC [Mass/volume] by Automa rachel counton 09-07-2022 MCHC (RBC) [Mass/Vol] 32.7 g/dL Normal 32-36 [facility] Work Phone: [phone] Comment on above: Performed By: #### L 100.0100, L500.2500, L500.3400, L503.6005 ####[facility] [address] [place], [place], [address] No Panel Informationon 09-07 Estimated Creatinine Clearance Calc 93.66 ml/min [facility] Work Phone: Estimated GFR (MDRD) Amer 114 mL/min >60 [facility] Work Phone: Comment on above: GFR Calc Estimated GFR (MDRD) Non-Af Amer 94 mL/min >60 [facility] Work Phone: Comment on above: Non- GFR Calc Platelets bldon 09-07-2022 Platelets (Bld) [#/Vol] 225 10*3/uL Normal 150-450 [facility] Work Phone: Comment on above: Performed By: #### L 100.0100, L500.2500, L500.3400, L503.6005 ####[facility] [address] [place], [address] Serum or plasma albumin yohannes urement (mass/volume)on 09-07-2022 Albumin [Mass/Vol] 3.6 g/dL 3.2-5.0 [facility] Work Phone: Serum or plasma calcium yohannes urement (mass/volume)on 09-07-2022 Calcium [Mass/Vol] 8.8 mg/dL 8.5-10.1 [facility] Work Phone: Serum or plasma creatinine m easurement (mass/volume)on 09-07-2022 Creatinine [Mass/Vol] 0.74 mg/dL 0.55-1.02 [facility] Work Phone: Comment on above: The validity of the calculated GFR & GFRAA in patients over 70 years has not been determined. Clinical correlation is essential. Serum or plasma urea nitroge n measurement (mass/volume)on 09-07-2022 Urea nitrogen [Mass/Vol] 21 mg/dL 7-18 [facility] Work Phone: Thin prep Papanicolaou smear with manual screeningon 09-07-2022 Thin prep Papanicolaou smear with manual screening 5 U/L 15-37 [facility] Work Phone: Thin prep Papanicolaou smear with manual screening 11 5-15 [facility] Work Phone: Absolute lymphocyte counton 07-30-2022 Lymphocytes Auto (Unsp spec) [#/Vol] 2.20 10*3/uL 0.83-4.51 [facility] Work Phone: Basophil percentageon 2021 Basophils/100 WBC (Bld) 0.4 % 0-1 [facility] Work Phone: Bilirubin [Mass/Vol] 0.30 mg/dL 0.20-1.00 [facility] Work Phone: Comment on above: For patients on eltr ombopag therapy, use of Dimension [place] TBIL is not recommended. Chloride [Moles/Vol] 108 mmol/L 98-107 [facility] Work Phone: Eosinophils/100 WBC (Bld) 2.6 % 0-5 [facility] Work Phone: Glucose [Mass/Vol] 93 mg/dL 74-106 [facility] Work Phone: Neutrophils (Bld) [#/Vol] 4.9 10*3/uL 2.0-7.7 [facility] Work Phone: Neutrophils/100 WBC (Bld) 62.4 % 47-70 [facility] Work Phone: Potassium [Moles/Vol] 3.8 mmol/L 3.5-5.1 [facility] Work Phone: Protein [Mass/Vol] 7.3 g/dL 6.4-8.2 [facility] Work Phone: Sodium [Moles/Vol] 139 mmol/L 136-145 [facility] Work Phone: WBC (Bld) [#/Vol] 7.8 10*3/uL 4.4-11.0 [facility] Work Phone: Beta hCG serum qualon 2021 Beta HCG ( test) Ql Negative [facility] Work Phone: Blood erythrocytes count (nu mber/volume)on 07-30-2022 RBC (Bld) [#/Vol] 4.71 10*6/uL 4.2-5.4 [facility] Work Phone: Blood hemoglobin measurement (mass/volume)on 07-30-2022 Hemoglobin (Bld) [Mass/Vol] 14.1 g/dL 12.0-15.0 [facility] Work Phone: Blood lymphocytes/100 leukoc yteson 07-30-2022 Lymphocytes/100 WBC (Bld) 28.1 % 19-41 [facility] Work Phone: Blood monocytes/100 leukocyt eson 07-30-2022 Monocytes/100 WBC (Bld) 6.1 % 0-10 [facility] Work Phone: Blood platelet mean volumeon 07-30-2022 Platelet mean volume (Bld) [Entitic vol] 8.7 fL 6.2-12.0 [facility] Work Phone: [phone] CBC W/Diff, Automatedon 07-11 Absolute Lymph 2.20 X10 3/uL Normal 0.83-4.51 [facility] Comment on above: Performed By: #### L 700.6800, L100.0100, L501.2450, L500.4050 #### [facility] [address] [place], [address] Absolute Neut 4.9 X10 3/uL Normal 2.0-7.7 [facility] Comment on above: Performed By: #### L 700.6800, L100.0100, L501.2450, L500.4050 #### [facility] [address] [place], [address] Basophils/100 WBC (Bld) 0.4 % Normal 0-1 [facility] Comment on above: Performed By: #### L 700.6800, L100.0100, L501.2450, L500.4050 #### [facility] [address] [place], [address] Eosinophils/100 WBC (Bld) 2.6 % Normal 0-5 [facility] Comment on above: Performed By: #### L 700.6800, L100.0100, L501.2450, L500.4050 #### [facility] [address] [place], [address] Erythrocyte distribution width (RBC) [Ratio] 12.5 % Normal 11.6-14.6 [facility] Comment on above: Performed By: #### L 700.6800, L100.0100, L501.2450, L500.4050 #### [facility] [address] [place] [place], [address] Hematocrit (Bld) [Volume fraction] 43.2 % Normal 37-47 [facility] Comment on above: Performed By: #### L 700.6800, L100.0100, L501.2450, L500.4050 #### [facility] [address] [place], [address] Hemoglobin (Bld) [Mass/Vol] 14.1 g/dL Normal 12.0-15.0 [facility] Comment on above: Performed By: #### L 700.6800, L100.0100, L501.2450, L500.4050 #### [facility] [address] [place], [address] IG% 0.400 Normal 0.0-0.9 [facility] Comment on above: Result Comment: IG% - Immature Granulocytes (promyelocytes, myelocytes and metamyelocytes) > 1% indicates that a LEFT SHIFT is Present. Performed By: #### L 700.6800, L100.0100, L501.2450, L500.4050 #### [facility] [address] [place], [address] Lymphocytes/100 WBC (Bld) 28.1 % Normal 19-41 [facility] Comment on above: Performed By: #### L 700.6800, L100.0100, L501.2450, L500.4050 #### [facility] [address] [place], [address] MCH (RBC) [Entitic mass] 29.9 pg Normal 27.0-32.0 [facility] Comment on above: Performed By: #### L 700.6800, L100.0100, L501.2450, L500.4050 #### [facility] [address] [place], [address] MCHC (RBC) [Mass/Vol] 32.6 g/dL Normal 32-36 [facility] Comment on above: Performed By: #### L 700.6800, L100.0100, L501.2450, L500.4050 #### [facility] [address] [place], [address] MCV (RBC) [Entitic vol] 91.7 fL Normal 81-99 [facility] Comment on above: Performed By: #### L 700.6800, L100.0100, L501.2450, L500.4050 #### [facility] [address] [place], [address] Monocytes/100 WBC (Bld) 6.1 % Normal 0-10 [facility] Comment on above: Performed By: #### L 700.6800, L100.0100, L501.2450, L500.4050 #### [facility] [address] [place], [address] Neutrophils/100 WBC (Bld) 62.4 % Normal 47-70 [facility] Comment on above: Performed By: #### L 700.6800, L100.0100, L501.2450, L500.4050 #### [facility] [address] [place], [address] Nucleated RBC (Bld) [#/Vol] 0 10*3/uL Normal 0-5 [facility] Comment on above: Performed By: #### L 700.6800, L100.0100, L501.2450, L500.4050 #### [facility] [address] [place], [address] Platelet mean volume (Bld) [Entitic vol] 8.7 fL Normal 6.2-12.0 [facility] Comment on above: Performed By: #### L 700.6800, L100.0100, L501.2450, L500.4050 #### [facility] [address] [place], [address] Platelets (Bld) [#/Vol] 252 10*3/uL Normal 150-450 [facility] Comment on above: Performed By: #### L 700.6800, L100.0100, L501.2450, L500.4050 #### [facility] [address] [place], [address] RBC (Bld) [#/Vol] 4.71 10*6/uL Normal 4.2-5.4 [facility] Comment on above: Performed By: #### L 700.6800, L100.0100, L501.2450, L500.4050 #### [facility] [address] [place], [address] RDW SD 42.5 fl Normal 35.1-43.9 [facility] Comment on above: Performed By: #### L 700.6800, L100.0100, L501.2450, L500.4050 #### [facility] [address] [place], [address] WBC (Bld) [#/Vol] 7.8 10*3/uL Normal 4.4-11.0 [facility] Comment on above: Performed By: #### L 700.6800, L100.0100, L501.2450, L500.4050 #### [facility] [address] [place], [address] Comprehensive Metabolic Prof ilon 07-30-2022 Albumin [Mass/Vol] 4.0 g/dL Normal 3.2-5.0 [facility] Comment on above: Performed By: #### L 700.6800, L100.0100, L501.2450, L500.4050 #### [facility] [address] [place], [address] Albumin/Globulin [Mass ratio] 1.2 {ratio} Normal 0.9-2.4 [facility] Comment on above: Performed By: #### L 700.6800, L100.0100, L501.2450, L500.4050 #### [facility] [address] [place], [address] ALK P 48 U/L Normal 45-117 [facility] Comment on above: Performed By: #### L 700.6800, L100.0100, L501.2450, L500.4050 #### [facility] [address] [place], [address] ALT [Catalytic activity/Vol] 19 U/L Normal 13-56 [facility] Comment on above: Performed By: #### L 700.6800, L100.0100, L501.2450, L500.4050 #### [facility] [address] [place], [address] AST [Catalytic activity/Vol] 7 U/L Low 15-37 [facility] Comment on above: Performed By: #### L 700.6800, L100.0100, L501.2450, L500.4050 #### [facility] [address] [place], [address] Bilirubin [Mass/Vol] 0.30 mg/dL Normal 0.20-1.00 [facility] Comment on above: Result Comment: For patients on eltrombopag therapy, use of Dimension [place] TBIL is not recommended. Performed By: #### L 700.6800, L100.0100, L501.2450, L500.4050 #### [facility] [address] [place], [address] BUN/CRE 21.8 RATIO High 10-20 [facility] Comment on above: Performed By: #### L 700.6800, L100.0100, L501.2450, L500.4050 #### [facility] [address] [place], [address] CA,Total 9.4 mg/dL Normal 8.5-10.1 [facility] Comment on above: Performed By: #### L 700.6800, L100.0100, L501.2450, L500.4050 #### [facility] [address] [place], [address] Chloride [Moles/Vol] 108 mmol/L High 98-107 [facility] Comment on above: Performed By: #### L 700.6800, L100.0100, L501.2450, L500.4050 #### [facility] [address] [place], [address] CO2 [Moles/Vol] 23.0 mmol/L Normal 21.0-32.0 [facility] Comment on above: Performed By: #### L 700.6800, L100.0100, L501.2450, L500.4050 #### [facility] [address] [place], [address] Creatinine [Mass/Vol] 0.50 mg/dL Low 0.55-1.02 [facility] Comment on above: Result Comment: The validity of the calculated GFR GFRAA in patients over 70 years has not been determined. Clinical correlation is essential. Performed By: #### L 700.6800, L100.0100, L501.2450, L500.4050 #### [facility] [address] [place], [address] ECRCL 138.62 ml/min Normal [facility] Comment on above: Performed By: #### L 700.6800, L100.0100, L501.2450, L500.4050 #### [facility] [address] [place], [address] EST GFR - AA 177 mL/min Normal >60 [facility] Comment on above: Result Comment: Afri can [place] GFR Calc Performed By: #### L 700.6800, L100.0100, L501.2450, L500.4050 #### [facility] [address] [place], [address] GAP 8 Normal 5-15 [facility] Comment on above: Performed By: #### L 700.6800, L100.0100, L501.2450, L500.4050 #### [facility] [address] [place], [address] GFR/1.73 sq M.predicted among non-blacks MDRD (S/P/Bld) [Vol rate/Area] 146 mL/min/{1.73_m2} Normal >60 [facility] Comment on above: Result Comment: Non- GFR Calc Performed By: #### L 700.6800, L100.0100, L501.2450, L500.4050 #### [facility] [address] [place], [address] Globulin (S) [Mass/Vol] 3.3 g/dL Normal 2.2-4.2 [facility] Comment on above: Performed By: #### L 700.6800, L100.0100, L501.2450, L500.4050 #### [facility] [address] [place], [address] Glucose [Mass/Vol] 93 mg/dL Normal 74-106 [facility] Comment on above: Performed By: #### L 700.6800, L100.0100, L501.2450, L500.4050 #### [facility] [address] [place], [address] Potassium [Moles/Vol] 3.8 mmol/L Normal 3.5-5.1 [facility] Comment on above: Performed By: #### L 700.6800, L100.0100, L501.2450, L500.4050 #### [facility] [address] [place], [address] Sodium [Moles/Vol] 139 mmol/L Normal 136-145 [facility] Comment on above: Performed By: #### L 700.6800, L100.0100, L501.2450, L500.4050 #### [facility] [address] [place], [address] T PROT 7.3 g/dL Normal 6.4-8.2 [facility] Comment on above: Performed By: #### L 700.6800, L100.0100, L501.2450, L500.4050 #### [facility] [address] [place], [address] Urea nitrogen [Mass/Vol] 11 mg/dL Normal 7-18 [facility] Comment on above: Performed By: #### L 700.6800, L100.0100, L501.2450, L500.4050 #### [facility] [address] [place], [address] Determination of erythrocyte mean corpuscular volume (MCV)on 07-30-2022 MCV (RBC) [Entitic vol] 91.7 fL 81-99 [facility] Work Phone: Emergency Department Summary on 07-30-2022 Emergency Department Summary [facility] Medical Records Department [address] [place] [address] Emergency Department Summary 07/30/22 MR#: [id number] Acct: [id number] Name: MEL WALL Rep #: [id number] : 1985 37 From: Jero Gold DO PCP: Dr. Jose Barron MD Status:REG ER Location: ED HPI HPI - GI History of Present Illness Chief Complaint: Abd Pain Narrative Narrative: 37-year-old female presenting with abdominal pain. She has a history of chronic abdominal pain. She sees a specialist at [facility] who is going to fix her chronic ventral wall hernia when she gets her BMI down. She states that she is having increasing pain today and called her provider and they told her to come to the ER. Patient states she has been vomiting. She has watery stool and thought she might of seen a blood clot in this earlier. She states she has not seen any blood or black stool since then. She complains of abdominal pain around her hernia. She has a history of ventral wall hernia repair with mesh which was removed which created a large defect in the abdominal wall. She is also had a history of appendectomy and cholecystectomy. Patient is not had any fever or chills. [facility] Medical History Acute narcotic withdrawal Anxiety and depression Cellulitis, abdominal wall Elevated BP without diagnosis of hypertension GERD (gastroesophageal reflux disease) History of anxiety disorder Hypokalemia due to excessive gastrointestinal loss of potassium Intractable abdominal pain Morbid obesity Nausea vomiting and diarrhea JAGJIT (obstructive sleep apnea) Partial small bowel obstruction Postoperative lower abdominal pain Severe sepsis Sinus tachycardia by electrocardiogram Vomiting Home Medications buspirone 15 mg tablet 15 mg PO TID 03/20/22 [History Last Taken Unknown] fluoxetine 40 mg capsule 40 mg PO DAILY 03/20/22 [History Last Taken Unknown] Allergy/AdvReac Type Severity Reaction Status Date / Time ketorolac tromethamine Allergy Shortness Verified 07/30/22 14:18 [From Toradol] of breath ondansetron HCl [From Zofran] Allergy Shortness Verified 07/30/22 14:18 of breath Surgical History History of History of hysterectomy History of laparoscopic appendectomy History of laparoscopic cholecystectomy Hx of ventral hernia repair Recurrent ventral hernia with incarceration Social History Smoking Status: Current every day smoker tobacco type: cigarettes how long ago did patient quit smokin years ROS ROS ED Constitutional Constitutional ED: Denies chills or fever(s) ENT ENT ED: Denies rhinorrhea or sore throat Cardiovascular Cardiovascular: Denies chest pain or palpitations Respiratory/Chest Respiratory/Chest: Denies cough or dyspnea Gastrointestinal Gastrointestinal: Reports abdominal pain, nausea and vomiting Genitourinary Genitourinary ED: Denies dysuria or hematuria Musculoskeletal Musculoskeletal: Denies arthralgias or back pain Integumentary Denies abscess Neurologic Neurologic: Denies headache(s) or paresthesias Psychiatric Psychiatric: Denies anxiety or depression Endocrine Endocrinology: Denies polydipsia or polyphagia EXAM Physical Exam Const Vital Signs: 07/30/22 14:16 Temperature 97.6 F L Temperature Source Temporal Pulse Rate 79 Respiratory Rate 16 Blood Pressure 123/81 H Blood Pressure Mean 95 Pulse Ox 99 Oxygen Delivery Method Room Air Positive well nourished General Appearance ED: NAD and pallor HEENT Reports moist mucous membranes Eyes PERRL and EOMs intact bilaterally Neck no lymphadenopathy Cardio regular rhythm GI GI Narrative: Large right-sided ventral wall hernia. The abdomen is soft. No peritoneal signs. Back/Spine no CVA tenderness Neuro CN's II-XII intact bilaterally Sensorium / Orientation: alert Psych mental status grossly normal and thought process normal Skin General Skin Exam: jaundice and pallor MDM MDM MDM Narrative Medical decision making narrative: Patient presents for abdominal pain. She does have a large ventral wall defect but this area is soft. She does report a blood clot in her stool earlier but states he has not had anything since then. She is not on any blood thinners. She reports that she supposed to have a surgery to correct this ventral wall defect when she gets her BMI down to a more manageable range. Patient does have a care plan and she knows this. I counseled her I can give her something for nausea and she was amenable for this. She was ordered Reglan. She states she is allergic to Toradol. She is amenable to basic lab work and and a CAT scan. When the bloo (more content not included)... Normal [facility] Hematocrit Auto (Bld) [Volum e fraction]on 07-30-2022 Hematocrit (Bld) [Volume fraction] 43.2 % 37-47 [facility] Work Phone: Laboratory - Chemistry and C hemistry - challengeon 07-30-2022 ALP [Catalytic activity/Vol] 48 U/L 45-117 [facility] Work Phone: ALT [Catalytic activity/Vol] 19 U/L 13-56 [facility] Work Phone: CO2 [Moles/Vol] 23.0 mmol/L 21.0-32.0 [facility] Work Phone: Globulin (S) [Mass/Vol] 3.3 g/dL 2.2-4.2 [facility] Work Phone: Lipase [Catalytic activity/Vol] 119 U/L 73-393 [facility] Work Phone: Urea nitrogen/Creatinine [Mass ratio] 21.8 mg/mg 10-20 [facility] Work Phone: Laboratory - Hematology and Cell countson 07-30-2022 Erythrocyte distribution width (RBC) [Entitic vol] 42.5 fL 35.1-43.9 [facility] Work Phone: Erythrocyte distribution width (RBC) [Ratio] 12.5 % 11.6-14.6 [facility] Work Phone: Immature granulocytes/100 WBC (Bld) 0.400 % 0.0-0.9 [facility] Work Phone: Comment on above: IG% - Immature Granu locytes (promyelocytes, myelocytes and metamyelocytes) > 1% indicates that a LEFT SHIFT is Present. MCH (RBC) [Entitic mass] 29.9 pg 27.0-32.0 [facility] Work Phone: Nucleated RBC/100 WBC (Bld) [Ratio] 0 % 0-5 [facility] Work Phone: Lipaseon 07-30-2022 Lipase [Catalytic activity/Vol] 119 U/L Normal 73-393 [facility] Comment on above: Performed By: #### L 700.6800, L100.0100, L501.2450, L500.4050 #### [facility] [address] [place], [address] MCHC Auto (RBC) [Mass/Vol]on 07-30-2022 MCHC (RBC) [Mass/Vol] 32.6 g/dL 32-36 [facility] Work Phone: No Panel Informationon 07-30 Estimated Creatinine Clearance Calc 138.62 ml/min [facility] Work Phone: Estimated GFR (MDRD) Amer 177 mL/min >60 [facility] Work Phone: Comment on above: GFR Calc Estimated GFR (MDRD) Non-Af Amer 146 mL/min >60 [facility] Work Phone: Comment on above: Non- GFR Calc Platelets bldon 07-30-2022 Platelets (Bld) [#/Vol] 252 10*3/uL 150-450 [facility] Work Phone: ,Serum,hCG Quali.on 07-30-2022 HCG, SERUM QUAL Negative Normal [facility] Comment on above: Performed By: #### L 700.6800, L100.0100, L501.2450, L500.4050 #### [facility] [address] [place], [address] Serum or plasma albumin yohannes urement (mass/volume)on 07-30-2022 Albumin [Mass/Vol] 4.0 g/dL 3.2-5.0 [facility] Work Phone: Serum or plasma albumin/glob ulin mass ratioon 07-30-2022 Albumin/Globulin [Mass ratio] 1.2 {ratio} 0.9-2.4 [facility] Work Phone: Serum or plasma calcium yohannes urement (mass/volume)on 07-30-2022 Calcium [Mass/Vol] 9.4 mg/dL 8.5-10.1 [facility] Work Phone: Serum or plasma creatinine m easurement (mass/volume)on 07-30-2022 Creatinine [Mass/Vol] 0.50 mg/dL 0.55-1.02 [facility] Work Phone: Comment on above: The validity of the calculated GFR & GFRAA in patients over 70 years has not been determined. Clinical correlation is essential. Serum or plasma urea nitroge n measurement (mass/volume)on 07-30-2022 Urea nitrogen [Mass/Vol] 11 mg/dL 7-18 [facility] Work Phone: Thin prep Papanicolaou smear with manual screeningon 07-30-2022 Thin prep Papanicolaou smear with manual screening 7 U/L 15-37 [facility] Work Phone: Thin prep Papanicolaou smear with manual screening 8 5-15 [facility] Work Phone: Abdomen/Pelvis W IV Cont ONL Yon 03-21-2022 Abdomen/Pelvis W IV Cont ONLY [facility] Imaging Services [address] [place] [address] Abdomen/Pelvis W IV Cont ONLY MR#: [id number] Acct: [id number] Name: MEL WALL JING Rep #: [id number] : 1985 F 36 From: Corky Turner MD PCP: Dr. Jose Barron MD Status: REG ER Study: Abdomen/Pelvis W IV Cont ONLY Date of Exam: Exam# [id number] Ordering Dr: Dung Shelby MD INDICATION: ventral hernia pain EXAMINATION: CT Abdomen And Pelvis W/ Contrast Injection TECHNIQUE: Helically acquired images were obtained of the abdomen and pelvis following IV contrast. 2-D reconstructions reviewed. A radiation dose optimization technique was used for this scan. IV Contrast dosage and agent: 100 mL Isovue-370 Oral contrast: None. COMPARISON: CT abdomen and pelvis from 09/15/2021. FINDINGS: LOWER CHEST: No acute findings within the imaged lung bases. Heart size within normal limits. LIVER: Fatty and enlarged liver measures 23 cm craniocaudal length. No concerning lesion. GALLBLADDER AND BILIARY TREE: Status post cholecystectomy. No significant biliary ductal dilation. PANCREAS: No discrete mass or peripancreatic edema. SPLEEN: Normal size without focal cystic or solid mass. ADRENAL GLANDS: Unremarkable. KIDNEYS AND URETERS: Normal renal size and position. No hydronephrosis. Couple small bilateral low-attenuation, simple appearing renal cysts again noted, requiring no additional follow-up. Tiny 2 mm right renal stone. No ureteral stones identified. PERITONEUM: No peritoneal free air or significant free fluid. No other fluid collection. RETROPERITONEUM: No retroperitoneal mass or pathologic fluid collection. BOWEL: Multiple loops of bowel remain within large ventral abdominal hernia sac. Patient is status post appendectomy and partial small bowel resection. No abnormal stomach or bowel distension. No focal inflammatory change. LYMPH NODES: No enlarged mesenteric or retroperitoneal lymph nodes. VESSELS: No acute findings. No abdominal aortic aneurysm. URINARY BLADDER: Unremarkable as visualized. REPRODUCTIVE ORGANS: Bilateral tubal ligation clips in place. No pelvic mass or large adnexal cyst. ABDOMINAL WALL: Stable large ventral abdominal hernia. BONES: Intact with no suspicious osseous lesion. CT/Abdomen/Pelvis W IV Cont ONLY IMPRESSION: 1. Stable large ventral abdominal hernia containing multiple loops of bowel with no evidence of bowel stringed relation or obstruction. 2. Hepatic steatosis and hepatomegaly. 3. Other nonurgent findings within body of report. Electronically Signed: Corky Turner MD at 1:12 EDT , CC: Dr. Dung Shelby MD; Dr. 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, [address] CA,Total 9.0 mg/dL Normal 8.5-10.1 [facility] Comment on above: Performed By: #### L 503.6005, L100.0100, L500.2500 ####[facility] [address] [place], [address] Chloride [Moles/Vol] 107 mmol/L Normal 98-107 [facility] Comment on above: Performed By: #### L 503.6005, L100.0100, L500.2500 ####[facility] [address] [place], [address] CO2 [Moles/Vol] 24.0 mmol/L Normal 21.0-32.0 [facility] Comment on above: Performed By: #### L 503.6005, L100.0100, L500.2500 ####[facility] [address] [place], [address] Creatinine [Mass/Vol] 0.52 mg/dL Low 0.55-1.02 [facility] Comment on above: Result Comment: The validity of the calculated GFR GFRAA in patients over 70 years has not been determined. Clinical correlation is essential. Performed By: #### L 503.6005, L100.0100, L500.2500 ####[facility] [address] [place], [address] ECRCL 134.58 ml/min Normal [facility] Comment on above: Performed By: #### L 503.6005, L100.0100, L500.2500 ####[facility] [address] [place], [address] EST GFR - AA 172 mL/min Normal >60 [facility] Comment on above: Result Comment: Afri can Eritrean GFR Calc Performed By: #### L 503.6005, L100.0100, L500.2500 ####[facility] [address] [place], [address] GAP 6 Normal 5-15 [facility] Comment on above: Performed By: #### L 503.6005, L100.0100, L500.2500 ####[facility] [address] [place], [address] GFR/1.73 sq M.predicted among non-blacks MDRD (S/P/Bld) [Vol rate/Area] 142 mL/min/{1.73_m2} Normal >60 [facility] Comment on above: Result Comment: Non- GFR Calc Performed By: #### L 503.6005, L100.0100, L500.2500 ####[facility] [address] [place], [address] Glucose [Mass/Vol] 110 mg/dL High 74-106 [facility] Comment on above: Result Comment: Fast ing Glucose result from 100 to 125 mg/dL suggests IMPAIRED HOMEOSTASIS per A.D.A. criteria. Performed By: #### L 503.6005, L100.0100, L500.2500 ####[facility] [address] [place], [address] Potassium [Moles/Vol] 3.6 mmol/L Normal 3.5-5.1 [facility] Comment on above: Performed By: #### L 503.6005, L100.0100, L500.2500 ####[facility] [address] [place], [address] Sodium [Moles/Vol] 137 mmol/L Normal 136-145 [facility] Comment on above: Performed By: #### L 503.6005, L100.0100, L500.2500 ####[facility] [address] [place], [address] Urea nitrogen [Mass/Vol] 14 mg/dL Normal 7-18 [facility] Comment on above: Performed By: #### L 503.6005, L100.0100, L500.2500 ####[facility] [address] [place], [address] CBC W/Diff, Automatedon 06- 2-2021 Absolute Lymph 2.96 X10 3/uL Normal 0.83-4.51 [facility] Comment on above: Performed By: #### L 503.6005, L100.0100, L500.2500 #### [facility] [address] [place], [address] Absolute Neut 7.6 X10 3/uL Normal 2.0-7.7 [facility] Comment on above: Performed By: #### L 503.6005, L100.0100, L500.2500 #### [facility] [address] [place], [address] Basophils/100 WBC (Bld) 0.3 % Normal 0-1 [facility] Comment on above: Performed By: #### L 503.6005, L100.0100, L500.2500 #### [facility] [address] [place], [address] Eosinophils/100 WBC (Bld) 2.3 % Normal 0-5 [facility] Comment on above: Performed By: #### L 503.6005, L100.0100, L500.2500 #### [facility] [address] [place], [address] Erythrocyte distribution width (RBC) [Ratio] 13.0 % Normal 11.6-14.6 [facility] Comment on above: Performed By: #### L 503.6005, L100.0100, L500.2500 #### [facility] [address] [place], [address] Hematocrit (Bld) [Volume fraction] 41.0 % Normal 37-47 [facility] Comment on above: Performed By: #### L 503.6005, L100.0100, L500.2500 #### [facility] [address] [place], [address] Hemoglobin (Bld) [Mass/Vol] 13.5 g/dL Normal 12.0-15.0 [facility] Comment on above: Performed By: #### L 503.6005, L100.0100, L500.2500 #### [facility] [address] [place], [address] IG% 0.700 Normal 0.0-0.9 [facility] Comment on above: Result Comment: IG% - Immature Granulocytes (promyelocytes, myelocytes and metamyelocytes) > 1% indicates that a LEFT SHIFT is Present. Performed By: #### L 503.6005, L100.0100, L500.2500 #### [facility] [address] [place], [address] Lymphocytes/100 WBC (Bld) 25.7 % Normal 19-41 [facility] Comment on above: Performed By: #### L 503.6005, L100.0100, L500.2500 #### [facility] [address] [place], [address] MCH (RBC) [Entitic mass] 30.1 pg Normal 27.0-32.0 [facility] Comment on above: Performed By: #### L 503.6005, L100.0100, L500.2500 #### [facility] [address] [place], [address] MCHC (RBC) [Mass/Vol] 32.9 g/dL Normal 32-36 [facility] Comment on above: Performed By: #### L 503.6005, L100.0100, L500.2500 #### [facility] [address] [place], [address] MCV (RBC) [Entitic vol] 91.5 fL Normal 81-99 [facility] Comment on above: Performed By: #### L 503.6005, L100.0100, L500.2500 #### [facility] [address] [place], [address] Monocytes/100 WBC (Bld) 5.2 % Normal 0-10 [facility] Comment on above: Performed By: #### L 503.6005, L100.0100, L500.2500 #### [facility] [address] [place], [address] Neutrophils/100 WBC (Bld) 65.8 % Normal 47-70 [facility] Comment on above: Performed By: #### L 503.6005, L100.0100, L500.2500 #### [facility] [address] [place], [address] Nucleated RBC (Bld) [#/Vol] 0 10*3/uL Normal 0-5 [facility] Comment on above: Performed By: #### L 503.6005, L100.0100, L500.2500 #### [facility] [address] [place], [address] Platelet mean volume (Bld) [Entitic vol] 9.1 fL Normal 6.2-12.0 [facility] Comment on above: Performed By: #### L 503.6005, L100.0100, L500.2500 #### [facility] [address] [place], [address] Platelets (Bld) [#/Vol] 285 10*3/uL Normal 150-450 [facility] Comment on above: Performed By: #### L 503.6005, L100.0100, L500.2500 #### [facility] [address] [place], [address] RBC (Bld) [#/Vol] 4.48 10*6/uL Normal 4.2-5.4 [facility] Comment on above: Performed By: #### L 503.6005, L100.0100, L500.2500 #### [facility] [address] [place], [address] RDW SD 43.6 fl Normal 35.1-43.9 [facility] Comment on above: Performed By: #### L 503.6005, L100.0100, L500.2500 #### [facility] [address] [place], [address] WBC (Bld) [#/Vol] 11.5 10*3/uL High 4.4-11.0 [facility] Comment on above: Performed By: #### L 503.6005, L100.0100, L500.2500 #### [facility] [address] [place], [address] Emergency Department Summary on 03-21-2022 Emergency Department Summary [facility] Medical Records Department [address] [place] [address] Emergency Department Summary 03/21/22 MR#: [id number] Acct: [id number] Name: MEL WALL JING Rep #: [id number] : 1985 36 From: Dung Shelby MD PCP: Dr. Jose Barron MD Status:DEP ER Location: ED HPI HPI - GI History of Present Illness Chief Complaint: Abd Pain Informant: patient Abdominal Pain/Flank Pain Onset: Today and Hours Context: Gradual Onset Timing: Continuous Quality: Aching Current Severity: Mild Maximum Severity: Moderate Worsened by: Nothing Relieved by: Nothing Nausea/Vomiting/Emesis GI Symptom: Positive for Nausea and Vomiting Onset: Today Severity: Mild Diarrhea/Melena/Hematochezia GI Symptom: Negative for Diarrhea, Melena and Hematochezia Associated Symptoms Associated Symptoms: Negative for Dysuria, Frequency and Hematuria Narrative Narrative: 36-year-old female has a history of a ventral hernia that she has been dealing with through the past 2 years. She has had multiple abdominal surgeries for it. She has a pending s urgery at [facility]. She is currently going through a weight loss program and if she loses enough weight and her BMI gets to be at her particular level with her going to reconsider to have abdominal wall reconstruction and ventral hernia repair. She has pain with this a lot of the time. Today she felt a pop around 8:45 PM has had increased pain. She has had nausea and vomiting. No fever. No dysuria. Normal bowel movements recently and flatus. She denies any fever. No trauma. She has been seen here multiple times over the last 2 years for this has had multiple prior abdominal CTs. Prior similar symptoms: Yes Recent Illness/Hospitalization: [facility] Medical History (Updated 03/21/22 @ 02:[address] Dung Shelby MD) Acute narcotic withdrawal Anxiety and depression Cellulitis, abdominal wall Elevated BP without diagnosis of hypertension GERD (gastroesophageal reflux disease) History of anxiety disorder Hypokalemia due to excessive gastrointestinal loss of potassium Intractable abdominal pain Morbid obesity Nausea vomiting and diarrhea JAGJIT (obstructive sleep apnea) Partial small bowel obstruction Postoperative lower abdominal pain Severe sepsis Sinus tachycardia by electrocardiogram Vomiting Home Medications buspirone 15 mg PO TID 03/20/22 [History Last Taken Unknown] fluoxetine 40 mg PO DAILY 03/20/22 [History Last Taken Unknown] Allergy/AdvReac Type Severity Reaction Status Date / Time ketorolac tromethamine Allergy Shortness Verified 09/14/21 22:50 [From Toradol] of breath ondansetron HCl [From Zofran] Allergy Shortness Verified 09/14/21 22:50 of breath Surgical History History of History of hysterectomy History of laparoscopic appendectomy History of laparoscopic cholecystectomy Hx of ventral hernia repair Recurrent ventral hernia with incarceration Social History Smoking Status: Current every day smoker tobacco type: cigarettes how long ago did patient quit smokin years ROS ROS ED ROS Narrative Abdominal pain. Nausea vomiting. Review of Systems ROS Unobtainable: Denies due to encephalopathy Constitutional Constitutional ED: Denies fever(s) ENT ENT ED: Denies ear pain Cardiovascular Cardiovascular: Denies chest pain Respiratory/Chest Respiratory/Chest: Denies dyspnea Gastrointestinal Gastrointestinal: Reports abdominal pain, nausea and vomiting Genitourinary Genitourinary ED: Denies dysuria Musculoskeletal Musculoskeletal: Denies myalgias Integumentary Denies rash Neurologic Neurologic: Denies headache(s) Psychiatric Psychiatric: Denies depression Endocrine Endocrinology: Denies polyuria Hematologic/Lymphatic Hematologic/Lymphatic: Denies easy bruising Allergic/Immunologic Allergic/Immunologic ED: Denies urticaria EXAM Physical Exam Narrative Exam Narrative: [id number] female vital signs stable afebrile. HEENT exam unremarkable. Lungs are clear. Heart regular rhythm rate about 90 no murmur. Abdomen is soft. She has a large lower abdominal hernia that is across the midline. At least the size of volleyball. Due to spirits diffusely tender. She has bowel sounds. The rest of her abdomen really is nontender and with no signs of obstruction currently. There is no significant discoloration of the hernia. Moving all 4 extremities. Neurologically she is awake and alert. Const Vital Signs: 03/20/22 23:37 Temperature 99.1 F Temperature Source Oral Pulse Rate 90 Respiratory Rate 20 H Blood Pressure 128/82 H Blood Pressure Mean 97 Pulse Ox 97 Oxygen Delivery Method Room Air Positive well nourished, well (more content not included)... Normal [facility] Lactic Acidon 03-21-2022 Lactate [Moles/Vol] 0.7 mmol/L Normal 0.4-1.9 [facility] Comment on above: Order Comment: Y Performed By: #### L 503.6005, L100.0100, L500.2500 ####[facility] [address] [place], [place], [address] Absolute lymphocyte counton 03-20-2022 Lymphocytes Auto (Unsp spec) [#/Vol] 2.96 10*3/uL 0.83-4.51 [facility] Work Phone: Basophil percentageon 2021 Basophils/100 WBC (Bld) 0.3 % 0-1 [facility] Work Phone: Chloride [Moles/Vol] 107 mmol/L 98-107 [facility] Work Phone: [phone] Eosinophils/100 WBC (Bld) 2.3 % 0-5 [facility] Work Phone: Glucose [Mass/Vol] 110 mg/dL 74-106 [facility] Work Phone: Comment on above: Fasting Glucose resu lt from 100 to 125 mg/dL suggests IMPAIRED HOMEOSTASIS per A.D.A. criteria. Lactate [Moles/Vol] 0.7 mmol/L 0.4-2.0 [facility] Work Phone: [phone] Neutrophils (Bld) [#/Vol] 7.6 10*3/uL 2.0-7.7 [facility] Work Phone: [phone] Neutrophils/100 WBC (Bld) 65.8 % 47-70 [facility] Work Phone: Potassium [Moles/Vol] 3.6 mmol/L 3.5-5.1 [facility] Work Phone: [phone] Sodium [Moles/Vol] 137 mmol/L 136-145 [facility] Work Phone: WBC (Bld) [#/Vol] 11.5 10*3/uL 4.4-11.0 [facility] Work Phone: Blood erythrocytes count (nu mber/volume)on 03-20-2022 RBC (Bld) [#/Vol] 4.48 10*6/uL 4.2-5.4 [facility] Work Phone: Blood hemoglobin measurement (mass/volume)on 03-20-2022 Hemoglobin (Bld) [Mass/Vol] 13.5 g/dL 12.0-15.0 [facility] Work Phone: Blood lymphocytes/100 leukoc yteson 03-20-2022 Lymphocytes/100 WBC (Bld) 25.7 % 19-41 [facility] Work Phone: [phone] Blood monocytes/100 leukocyt eson 03-20-2022 Monocytes/100 WBC (Bld) 5.2 % 0-10 [facility] Work Phone: [phone] Blood platelet mean volumeon 03-20-2022 Platelet mean volume (Bld) [Entitic vol] 9.1 fL 6.2-12.0 [facility] Work Phone: Determination of erythrocyte mean corpuscular volume (MCV)on 03-20-2022 MCV (RBC) [Entitic vol] 91.5 fL 81-99 [facility] Work Phone: Hematocrit Auto (Bld) [Volum e fraction]on 03-20-2022 Hematocrit (Bld) [Volume fraction] 41.0 % 37-47 [facility] Work Phone: Laboratory - Chemistry and C hemistry - challengeon 03-20-2022 CO2 [Moles/Vol] 24.0 mmol/L 21.0-32.0 [facility] Work Phone: Urea nitrogen/Creatinine [Mass ratio] 27.1 mg/mg 10-20 [facility] Work Phone: Laboratory - Hematology and Cell countson 03-20-2022 Erythrocyte distribution width (RBC) [Entitic vol] 43.6 fL 35.1-43.9 [facility] Work Phone: Erythrocyte distribution width (RBC) [Ratio] 13.0 % 11.6-14.6 [facility] Work Phone: Immature granulocytes/100 WBC (Bld) 0.700 % 0.0-0.9 [facility] Work Phone: Comment on above: IG% - Immature Granu locytes (promyelocytes, myelocytes and metamyelocytes) > 1% indicates that a LEFT SHIFT is Present. MCH (RBC) [Entitic mass] 30.1 pg 27.0-32.0 [facility] Work Phone: Nucleated RBC/100 WBC (Bld) [Ratio] 0 % 0-5 [facility] Work Phone: MCHC Auto (RBC) [Mass/Vol]on 03-20-2022 MCHC (RBC) [Mass/Vol] 32.9 g/dL 32-36 [facility] Work Phone: No Panel Informationon 03-20 Estimated Creatinine Clearance Calc 134.58 ml/min [facility] Work Phone: Estimated GFR (MDRD) Amer 172 mL/min >60 [facility] Work Phone: Comment on above: GFR Calc Estimated GFR (MDRD) Non-Af Amer 142 mL/min >60 [facility] Work Phone: Comment on above: Non- GFR Calc Platelets bldon 03-20-2022 Platelets (Bld) [#/Vol] 285 10*3/uL 150-450 [facility] Work Phone: Serum or plasma calcium yohannes urement (mass/volume)on 03-20-2022 Calcium [Mass/Vol] 9.0 mg/dL 8.5-10.1 [facility] Work Phone: Serum or plasma creatinine m easurement (mass/volume)on 03-20-2022 Creatinine [Mass/Vol] 0.52 mg/dL 0.55-1.02 [facility] Work Phone: Comment on above: The validity of the calculated GFR & GFRAA in patients over 70 years has not been determined. Clinical correlation is essential. Serum or plasma urea nitroge n measurement (mass/volume)on 03-20-2022 Urea nitrogen [Mass/Vol] 14 mg/dL 7-18 [facility] Work Phone: Thin prep Papanicolaou smear with manual screeningon 03-20-2022 Thin prep Papanicolaou smear with manual screening 6 5-15 [facility] Work Phone: XR Chest PA and Lateralon IMPRESSION: No acute radiographic abnormality. Automatic Door Mechanic: HUMAIRA Transcribe Date/Time: May 19 2021 12:16P Dictated by : PILI RHODES MD This examination was interpreted and the report reviewed and electronically signed by: PILI RHODES MD on May 19 2021 12:17PM [facility] DIVISION OF RADIOLOGY * * *Final Report* * * DATE OF EXAM: May 19 2021 12:11PM WOX [id number] - XR CHEST 2V FRONTAL/LAT / PROCEDURE REASON: Suspected COVID-19 virus infection * * * * Physician Interpretation * * * * EXAMINATION: CHEST RADIOGRAPH (2 VIEW FRONTAL & LATERAL) CLINICAL HISTORY: Suspected COVID-19 virus infection MQ: XC2_6 EXAM DATE/TIME: 05/19/2021 12:11 PM COMPARISON: 07/24/2013 RESULT: Lines, tubes, and devices: None. Lungs and pleura: No consolidation. No lung mass. No pleural effusion. No pneumothorax. Cardiomediastinal silhouette: Normal cardiomediastinal silhouette. Bones and soft tissues: Unremarkable. DIVISION OF RADIOLOGY Provider, [facility] - 05/19/2021 * * *Final Report* * * DATE OF EXAM: May 19 2021 12:11PM WOX [id number] - XR CHEST 2V FRONTAL/LAT / PROCEDURE REASON: Suspected COVID-19 virus infection * * * * Physician Interpretation * * * * EXAMINATION: CHEST RADIOGRAPH (2 VIEW FRONTAL & LATERAL) CLINICAL HISTORY: Suspected COVID-19 virus infection MQ: XC2_6 EXAM DATE/TIME: 05/19/2021 12:11 PM COMPARISON: 07/24/2013 RESULT: Lines, tubes, and devices: None. Lungs and pleura: No consolidation. No lung mass. No pleural effusion. No pneumothorax. Cardiomediastinal silhouette: Normal cardiomediastinal silhouette. Bones and soft tissues: Unremarkable. IMPRESSION IMPRESSION: No acute radiographic abnormality. Automatic Door Mechanic: PSCB Transcribe Date/Time: May 19 2021 12:16P Dictated by : PILI RHODES MD This examination was interpreted and the report reviewed and electronically signed by: PILI RHODES MD on May 19 2021 12:17PM EST [facility] Radiology Study observation (narrative) [facility] XR Chest PA and LateralOrder ed By: Ccf Provider on 05-19-[address] [facility] [address] ABDOMEN PELVIS WITH IV CO NTRAST ONLYon 04-28-2021 CT ABDOMEN PELVIS WITH IV CONTRAST ONLY EXAMINATION: CT ABDOMEN PELVIS WITH IV CONTRAST ONLY HISTORY: ORDERING SYSTEM PROVIDED HISTORY: Acute abdominal pain with history of ventral abdominal wall hernia, TECHNOLOGIST PROVIDED HISTORY: Illness/Other Reason for exam: Acute abdominal pain with history of ventral abdominal wall hernia Encounter Type: Subsequent/Follow-up Additional signs and symptoms: ORDERING SYSTEM PROVIDED DIAGNOSIS CODES: COMPARISON: 03/17/2021. TECHNIQUE: CT examination of the abdomen and pelvis following the administration of intravenous contrast. Coronal and sagittal reformations were performed. Dose reduction techniques were achieved by using automated exposure control and/or adjustment of mA and/or kV according to patient size and/or use of iterative reconstruction technique. CONTRAST: IOPAMIDOL 76 % INTRAVENOUS SOLUTION - 75 mL, FINDINGS: CT scan of the abdomen: Lung bases are clear. There is hepatosplenomegaly with fatty liver. There has been a cholecystectomy. Spleen, pancreas and adrenal glands are normal. There is a renal cortical cyst on the right and a hyperdense cyst versus mass in the left lower pole measuring 13 mm. Large ventral hernia measuring 24 cm containing omentum mesentery large small bowel but no evidence for obstruction or inflammation. CT scan of the pelvis: Distal ureters and bladder normal. Uterus and adnexa unremarkable tube ligation clips. Distal bowel is normal. No free fluid is seen. There mild degenerative changes lumbar spine with a bone island T9 vertebral body. IMPRESSION: 1. Large ventral hernia not significantly changed containing large small bowel. No obstruction or inflammation. 2. Hepatosplenomegaly with fatty liver. 3. Indeterminate complex cyst or mass left lower pole measuring 1.3 cm. Recommend renal MRI. 4. Prior cholecystectomy and appendectomy. RI/r Workstation ID: [id number] Dictated by: CORKY CRANE on TueApr 28, 2021 2:54:59 PM EDT Transcribed by: MICHAEL GEORGE on TueApr 28, 2021 3:28:26 PM EDT Finalized by: CORKY CRANE on TueApr 28, 2021 6:58:35 PM EDT [facility] Comment on above: Order Comment: Injur y/Trauma or Illness?:Illness/Other How long have you had these symptoms (acute/chronic)?:Acute Reason for exam?:Acute abdominal pain with history of ventral abdominal wall hernia Type of Exam?:Subsequent/Follow-up Additional signs and symptoms?: HCG ( test) Ql (U)O rdered By: [facility] on 03-17-2021 Beta HCG ( test) Ql (U) Dilute urine specimens, as indicated by a low specific gravity (<1.010) may not contain loan representative levels of hCG. If is still suspected, a serum test or repeat urine test using a first morning urine specimen should be considered. [facility] Interpretation and review of laboratory results Normal [facility] POC Basic Metabolic PanelOrd ered By: [facility] on 03-17-2021 Calcium.ionized (Bld) [Mass/Vol] 4.7 mg/dL 4.5 - 5.3 mg/dL [facility] Chloride [Moles/Vol] 105 mmol/L 98 - 10 8 mmol/L [facility] CO2 [Moles/Vol] 23 mmol/L 21 - 32 mmol/L [facility] Creatinine [Mass/Vol] 0.31 mg/dL Low 0.40 - 1.10 [facility] GFR 147 >=60 mL/min/1.7 3 m2 [facility] Glucose [Mass/Vol] 127 mg/dL High 65 - 99 mg/dL [facility] Interpretation and review of laboratory results Abnormal [facility] Potassium [Moles/Vol] 4.3 mmol/L 3.5 - 5.1 mmol/L [facility] Sodium [Moles/Vol] 139 mmol/L 135 - 145 mmol/L [facility] Urea nitrogen [Mass/Vol] 7 mg/dL Low 8 - 25 mg/dL [facility] POC CBC and DifferentialOrde red By: Govind Graham on 03-17-2021 Basophils (Bld) [#/Vol] 0.03 10*3/uL [facility] Basophils/100 WBC (Bld) 0.3 % [facility] Eosinophils (Bld) [#/Vol] 0.18 10*3/uL [facility] Eosinophils/100 WBC (Bld) 1.8 % [facility] Erythrocyte distribution width (RBC) [Entitic vol] 12.6 % 11.6 - 14.8 % [facility] Hematocrit (Bld) [Volume fraction] 41.8 % 36.0 - 46.0 % [facility] Hemoglobin (Bld) [Mass/Vol] 13.9 g/dL 12.0 - 16.0 g/dL [facility] Immature granulocytes (Bld) [#/Vol] 0.06 10*3/uL [facility] Immature granulocytes/100 WBC (Bld) 0.60 % [facility] Comment on above: The IG parameter is the percentage of metamyelocytes, myelocytes and promyelocytes. An immature granulocyte count (IG) of 1% or more suggests the possibility of infection, an IG count of 3% is very likely related to an infection. Interpretation and review of laboratory results Abnormal [facility] Lymphocytes (Bld) [#/Vol] 1.90 10*3/uL [facility] Lymphocytes/100 WBC (Bld) 19.4 % [facility] MCH (RBC) [Entitic mass] 30.5 pg 26.0 - 34.0 pg [facility] MCHC (RBC) [Mass/Vol] 33.3 g/dL 31.0 - 37.0 g/dL [facility] MCV (RBC) [Entitic vol] 91.7 fL 80.0 - 100.0 fL [facility] Monocytes (Bld) [#/Vol] 0.50 10*3/uL [facility] Monocytes/100 WBC (Bld) 5.1 % [facility] Neutrophils (Bld) [#/Vol] 7.13 10*3/uL High [facility] Neutrophils/100 WBC (Bld) 72.8 % [facility] Platelet mean volume (Bld) [Entitic vol] 8.7 fL Low 9.4 - 12.4 fL [facility] Platelets (Bld) [#/Vol] 257 10*3/uL [facility] RBC (Bld) [#/Vol] 4.56 10*6/uL [facility] WBC (Bld) [#/Vol] 9.80 10*3/uL [facility] POC Liver Panel PlusOrdered By: [facility] on 03-17-2021 Albumin [Mass/Vol] 4.0 g/dL 3.2 - 5.2 g/dL [facility] ALP [Catalytic activity/Vol] 46 U/L 40 - 140 U/L [facility] ALT [Catalytic activity/Vol] 26 U/L 0 - 40 U/L [facility] Amylase [Catalytic activity/Vol] 29 U/L 25 - 115 U/L [facility] AST [Catalytic activity/Vol] 26 U/L 0 - 45 U/L [facility] Bilirubin [Mass/Vol] 0.5 mg/dL 0.0 - 1 .3 mg/dL [facility] Gamma glutamyl transferase [Catalytic activity/Vol] 37 U/L High 7 - 33 U/L [facility] Interpretation and review of laboratory results Abnormal [facility] Protein [Mass/Vol] 6.7 g/dL 6.0 - 8.0 g/dL [facility] POC , UrineOrdered By: [facility] on 03-17-2021 HCG ( test) Ql (U) Negative Negative [facility] POC Urinalysis Dipstick, Aut oOrdered By: [facility] on 03-17-2021 Bilirubin Ql (U) Negative Negative [facility] Glucose Ql (U) Negative Negative mg/dL [facility] Hemoglobin Ql (U) Small Abnormal Negative [facility] Interpretation and review of laboratory results Abnormal [facility] Ketones Ql (U) Negative Negative mg/dL [facility] Leukocyte esterase Test strip Ql (U) Negative Negative [facility] Nitrite Ql (U) Negative Negative [facility] pH (U) 6.5 [pH] [facility] Protein Ql (U) Negative Negative mg/dL [facility] Specific gravity (U) [Rel density] >=1.030 High [facility] Urobilinogen Qn (U) 0.2 mg/dL <2.0 [facility] .Auto Diffon 02-09-2021 Basophil, Absolute 0.10 10 3/mcL Normal 0.00-0.19 [facility] ([place]) Comment on above: Performed By: #### C BC, ADIFF, ANEU, BMP, GFR #### [address] [address] Basophils/100 WBC (Bld) 0.8 % Normal 0.0-2.5 [facility] ([place]) Comment on above: Performed By: #### C BC, ADIFF, ANEU, BMP, GFR #### [address] [address] Eosinophil, Absolute 0.20 10 3/mcL Normal 0.00-0.40 [facility] ([place]) Comment on above: Performed By: #### C BC, ADIFF, ANEU, BMP, GFR #### [address] [address] Eosinophils/100 WBC (Bld) 1.7 % Normal 0.0-7.0 [facility] ([place]) Comment on above: Performed By: #### C BC, ADIFF, ANEU, BMP, GFR #### [address] [address] Lymphocyte, Absolute 2.70 10 3/mcL Normal 0.77-3.85 [facility] ([place]) Comment on above: Performed By: #### C BC, ADIFF, ANEU, BMP, GFR #### [address] [address] Lymphocytes/100 WBC (Bld) 23.9 % Normal 10.0-50.0 [facility] ([place]) Comment on above: Performed By: #### C BC, ADIFF, ANEU, BMP, GFR #### [address] [address] Monocyte, Absolute 0.60 10 3/mcL Normal 0.15-1.00 [facility] ([place]) Comment on above: Performed By: #### C BC, ADIFF, ANEU, BMP, GFR #### [address] [address] Monocytes/100 WBC (Bld) 5.5 % Normal 1.7-13.0 [facility] ([place]) Comment on above: Performed By: #### C BC, ADIFF, ANEU, BMP, GFR #### [address] [address] Neutrophils/100 WBC (Bld) 68.1 % Normal 37.0-80.0 [facility] ([place]) Comment on above: Performed By: #### C BC, ADIFF, ANEU, BMP, GFR #### [address] [address] .GFRon 02-09-2021 GFR 128 ml/min/1.73sqm Normal [facility] ([place]) Comment on above: Result Comment: GFR Population mean for , [...] 15 mL/min/1.73 square meters Performed By: #### C BC, ADIFF, ANEU, BMP, GFR #### [address] [address] GFR Non- 106 ml/min/1.73sqm Normal [facility] ([place]) Comment on above: Result Comment: GFR Population mean for , [...] 15 mL/min/1.73 square meters Performed By: #### C BC, ADIFF, ANEU, BMP, GFR #### [place] [id number] .NEUABSon 02-09-2021 Neutrophil, Absolute 7.60 10 3/mcL High 2.85-6.16 [facility] ([place]) Comment on above: Performed By: #### C BC, ADIFF, ANEU, BMP, GFR #### [place] [address] [address] .Urinalysis Microscopic (AO) on 02-09-2021 UA Bacteria Trace Abnormal [facility] ([place]) Comment on above: Performed By: #### P REGU, UA, UAMICAO #### [place] [id number] UA RBC 5-10 Abnormal None Seen [facility] ([place]) Comment on above: Performed By: #### P REGU, UA, UAMICAO #### [address] [address] UA Squam Epithelial 5-10 Abnormal None Seen [facility] ([place]) Comment on above: Performed By: #### P REGU, UA, UAMICAO #### [place] [address] UA WBC None Seen Normal None Seen [facility] ([place]) Comment on above: Performed By: #### P REGU, UA, UAMICAO #### [place] [address] CBCon 02-09-2021 Erythrocyte distribution width (RBC) [Ratio] 13.2 % Normal 11.5-14.5 [facility] ([place]) Comment on above: Performed By: #### C BC, ADIFF, ANEU, LIP, CMP #### [place] [address] #### GFR #### [place] [address] Hematocrit (Bld) [Volume fraction] 42.0 % Normal 37.0-47.0 [facility] ([place]) Comment on above: Performed By: #### C BC, ADIFF, ANEU, LIP, CMP #### [place] [address] #### GFR #### [place] [address] Hgb 14.2 G/dL Normal 12.0-16.0 [facility] ([place]) Comment on above: Performed By: #### C BC, ADIFF, ANEU, LIP, CMP #### [place] [address] #### GFR #### [place] [address] MCH (RBC) [Entitic mass] 30.7 pg Normal 27.0-31.2 [facility] ([place]) Comment on above: Performed By: #### C BC, ADIFF, ANEU, LIP, CMP #### [place] [address] #### GFR #### [place] [address] MCHC 33.9 G/dL Normal 33.0-37.0 [facility] ([place]) Comment on above: Performed By: #### C BC, ADIFF, ANEU, LIP, CMP #### [place] [address] #### GFR #### [place] [address] MCV (RBC) [Entitic vol] 90.7 fL Normal 80.0-94.0 [facility] ([place]) Comment on above: Performed By: #### C BC, ADIFF, ANEU, LIP, CMP #### [place] [address] #### GFR #### [place] [address] Platelet 335 10 3/mcL Normal 130-400 [facility] ([place]) Comment on above: Performed By: #### C BC, ADIFF, ANEU, LIP, CMP #### [place] [address] #### GFR #### [place] [address] Platelet mean volume (Bld) [Entitic vol] 6.9 fL Low 7.4-10.4 [facility] ([place]) Comment on above: Performed By: #### C BC, ADIFF, ANEU, LIP, CMP #### [place] [address] #### GFR #### [place] [address] RBC 4.63 10 6/mcL Normal 4.20-5.40 [facility] ([place]) Comment on above: Performed By: #### C BC, ADIFF, ANEU, LIP, CMP #### [place] [address] #### GFR #### [place] [address] WBC 11.10 10 3/mcL High 4.60-10.80 [facility] ([place]) Comment on above: Performed By: #### C BC, ADIFF, ANEU, LIP, CMP #### [address] [address] #### GFR #### [address] 02-09-2021 Albumin Level 4.2 G/dL Normal 3.5-5.0 [facility] ([place]) Comment on above: Performed By: #### C BC, ADIFF, ANEU, BMP, GFR #### [address] [address] Albumin/Globulin [Mass ratio] 1.4 {ratio} Normal 1.1-2.5 [facility] ([place]) Comment on above: Performed By: #### C BC, ADIFF, ANEU, BMP, GFR #### [address] [address] ALP [Catalytic activity/Vol] 56 U/L Normal 40-135 [facility] ([place]) Comment on above: Performed By: #### C BC, ADIFF, ANEU, BMP, GFR #### [address] [address] ALT [Catalytic activity/Vol] 37 U/L Normal 14-59 [facility] ([place]) Comment on above: Performed By: #### C BC, ADIFF, ANEU, BMP, GFR #### [address] [address] AST [Catalytic activity/Vol] 16 U/L Normal 10-40 [facility] ([place]) Comment on above: Performed By: #### C BC, ADIFF, ANEU, BMP, GFR #### [address] [address] Bili Total 0.3 mg/dL Normal 0.2-1.0 [facility] ([place]) Comment on above: Result Comment: Use of this assay is not recommended for patients undergoing treatment with eltrombopag due to the potential for falsely elevated results. Performed By: #### C BC, ADIFF, ANEU, BMP, GFR #### [address] [address] BUN/Creatinine Ratio 11 ratio Normal 7-27 [facility] ([place]) Comment on above: Performed By: #### C BC, ADIFF, ANEU, BMP, GFR #### [address] [address] Calcium [Mass/Vol] 8.9 mg/dL Normal 8.4-10.2 [facility] ([place]) Comment on above: Performed By: #### C BC, ADIFF, ANEU, BMP, GFR #### [address] [address] Chloride [Moles/Vol] 102 mmol/L Normal 98-107 [facility] ([place]) Comment on above: Performed By: #### C BC, ADIFF, ANEU, BMP, GFR #### [address] [address] CO2 [Moles/Vol] 23 mmol/L Normal 22-29 [facility] ([place]) Comment on above: Performed By: #### C BC, ADIFF, ANEU, BMP, GFR #### [address] [address] Creatinine [Mass/Vol] 0.64 mg/dL Normal 0.55-1.02 [facility] ([place]) Comment on above: Performed By: #### C BC, ADIFF, ANEU, BMP, GFR #### [address] [address] Electrolyte Balance 14.0 mEq/L Normal [facility] ([place]) Comment on above: Performed By: #### C BC, ADIFF, ANEU, BMP, GFR #### [address] [address] Globulin 3.1 G/dL Normal [facility] ([place]) Comment on above: Performed By: #### C BC, ADIFF, ANEU, BMP, GFR #### [address] [address] Glucose [Mass/Vol] 106 mg/dL High 70-105 [facility] ([place]) Comment on above: Performed By: #### C BC, ADIFF, ANEU, BMP, GFR #### [address] [address] Potassium [Moles/Vol] 4.1 mmol/L Normal 3.5-5.1 [facility] ([place]) Comment on above: Performed By: #### C BC, ADIFF, ANEU, BMP, GFR #### [address] [address] Sodium [Moles/Vol] 139 mmol/L Normal 136-145 [facility] ([place]) Comment on above: Performed By: #### C BC, ADIFF, ANEU, BMP, GFR #### [address] [address] Total Protein 7.3 G/dL Normal 6.4-8.2 [facility] ([place]) Comment on above: Performed By: #### C BC, ADIFF, ANEU, BMP, GFR #### [address] [address] Urea nitrogen [Mass/Vol] 7 mg/dL Normal 7-18 [facility] ([place]) Comment on above: Performed By: #### C BC, ADIFF, ANEU, BMP, GFR #### [address] [address] [address] ABD/PELVIS W/ IV CONTRAST ONLYon 02-09-2021 CT ABD/PELVIS W/ IV CONTRAST ONLY ORIGINAL CT ABD/PELVIS W/ IV CONTRAST ONLY CLINICAL STATEMENT: Abdominal pain, N/V, history of multiple abdominal surgeries for incisional hernia COMPARISON: CT abdomen pelvis 06/15/2020; 11/21/2009; and 04/07/2015 TECHNIQUE: Axial images were obtained from the lung bases through the pubic symphysis after the administration of IV contrast.. Coronal reformatted images were generated from the axial dataset. This exam was performed according to our departmental dose optimization program, and includes the following measures where applicable: automated exposure control, adjustment of the mAs and/or kVp according to patient size and/or exam, and an iterative reconstruction algorithm. FINDINGS: Lung bases are clear. There is a very large ventral abdominal hernia containing fat, small bowel, colon, and the greater curvature of the stomach. The neck of the hernia measures up to 14 cm in greatest axial dimension and 10 cm in craniocaudal dimension. The hernia sac measures 22 cm in craniocaudal dimension, 24 cm and transverse dimension and 13 cm in AP dimension. There is no evidence of complication such as obstruction. There are small bowel anastomoses present. The appendix is surgically absent. There is no evidence of colitis. Diffuse hepatic steatosis. Liver is enlarged as well measuring 28 cm in craniocaudal dimension. Gallbladder is surgically absent. No suspicious lesions demonstrated involving the spleen, adrenal glands or the pancreas. There is no biliary ductal dilation. Small 12 mm hypodensity in the lower pole of the RIGHT kidney. Partially exophytic 12 mm lesion arising from the lower pole of the LEFT kidney. There were faint hypodensities in these areas on the noncontrast CT abdomen pelvis from 04/07/2015 and these are favored to be cysts. The renal pelves are medialized. The kidneys excrete contrast symmetrically, there is no evidence of obstructive uropathy. The uterus is anteverted. There are tubal ligation clips bilaterally and associated with both adnexa. Urinary bladder is nearly collapsed. No pathologically enlarged lymph nodes are evident. Normal caliber abdominal aorta. No suspicious osseous lesion. Redemonstration of a sclerotic T9 vertebral body, present since 2014 likely a hemangioma in the absence of a known malignancy. IMPRESSION: Very large ventral abdominal wall hernia containing bowel, as detailed in the body of the report. No obstruction. Hepatomegaly and hepatic steatosis. I have personally reviewed the images of this examination and agree with the resident's findings and interpretation. Interpreted By: Gemma Galdamez MD Preliminary Report By: Heber Martines MD Electronically Signed By: Gemma Galdamez MD Dictated Date: 02/09/2021 7:51:49 PM Prelim Date: 02/09/2021 8:15:58 PM Sign Date: 02/09/2021 8:19:55 PM Ordering Provider:Hilario Silverman [facility] ([place]) LIPon 02-09-2021 Lipase Level 67 U/L Low 73-393 [facility] ([place]) Comment on above: Performed By: #### C BC, ADIFF, ANEU, BMP, GFR #### [place] [address] [place], [place] [address] PREGUon 02-09-2021 HCG ( test) Ql (U) Negative Normal [facility] ([place]) Comment on above: Performed By: #### P REGU, UA, UAMICAO #### [place] [address] test (u) int Not detected Invalid Interpretation Code [facility] ([place]) Comment on above: Performed By: #### P REGU, UA, UAMICAO #### [place] [address] UAon 02-09-2021 Color (U) Yellow Normal [facility] ([place]) Comment on above: Performed By: #### P REGU, UA, UAMICAO #### [place] [address] Glucose (U) [Mass/Vol] Negative Normal Negative [facility] ([place]) Comment on above: Performed By: #### P REGU, UA, UAMICAO #### [place] [address] Ketones Ql (U) Negative Normal Negative [facility] ([place]) Comment on above: Performed By: #### P REGU, UA, UAMICAO #### [place] [address] UA Appear Slightly Cloudy Abnormal Clear [facility] ([place]) Comment on above: Performed By: #### P REGU, UA, UAMICAO #### [place] [address] UA Blood Large Abnormal Negative [facility] ([place]) Comment on above: Performed By: #### P REGU, UA, UAMICAO #### [place] [address] UA Leuk Est Negative Normal Negative [facility] ([place]) Comment on above: Performed By: #### P REGU, UA, UAMICAO #### [place] [address] UA Nitrite Negative Normal Negative [facility] ([place]) Comment on above: Performed By: #### P REGU, UA, UAMICAO #### [address] [address] UA pH 7.0 Normal 5.0 - 8.0 [facility] ([place]) Comment on above: Performed By: #### P REGU, UA, UAMICAO #### [address] [address] UA Protein Negative Normal Negative [facility] ([place]) Comment on above: Performed By: #### P REGU, UA, UAMICAO #### [address] [address] UA Spec Grav 1.025 Normal 1.015-1.02 5 [facility] ([place]) Comment on above: Performed By: #### P REGU, UA, UAMICAO #### [address] [address] UA Specimen Type Void Normal [facility] ([place]) Comment on above: Performed By: #### P REGU, UA, UAMICAO #### [address] [address] UA Urobilinogen 0.2 E.U./dL Normal 0.2-1.0 [facility] ([place]) Comment on above: Performed By: #### P REGU, UA, UAMICAO #### [address] [address] Urobilinogen (U) [Mass/Vol] Negative Normal Negative [facility] ([place]) Comment on above: Performed By: #### P REGU, UA, UAMICAO #### [address] [address] Follow Up (General Surgery)o n 09-01-2020 Follow Up (General Surgery) Diagnoses/Problems Recurrent ventral hernia (553.21) (K43.2) Provider Impressions We again discussed the fact that she would require abdominal wall reconstruction for definitive repair of her ventral hernia. We had discussed this even back before her surgery in March however she was unable to lose weight and had recurrent hospitalization for obstructive symptoms and elevated lactate. Therefore we proceeded with a underlay repair and patient had verbalized understanding of high risk of recurrent hernia due to morbid obesity. She again verbalized the understanding however just wants to have it fixed. We discussed the importance of losing weight. We discussed that the hernia defect being so wide poses very little risk for bowel obstruction and strangulation although not impossible. We again discussed the signs and symptoms for that. I have encouraged her to use abdominal binder as much as possible and continue with physical activity to continue losing weight. She had bariatric surgery before and I do not think that she would be a candidate for bariatric surgery at this time, but I will refer her to Dr. Tito Bauman to discuss this. I have also encouraged her to seek a second opinion for her ventral hernia and I would be happy to provide a referral if she wants. Chief Complaint Here for abdominal pain. c/o shakiness and dizziness. c/o painful and watery bowel movements. History of Present [id number] female who underwent laparoscopic repair of recurrent ventral hernia repair with mesh in March 2020. Due to morbid obesity, she understood the risk of recurrent hernia. She recently presented to the emergency room with complaints of abdominal bulging and was found to have a recurrent ventral hernia. Patient states that she had joined [employer] and even lost some weight however 1 day while she was doing [employer], she felt a pop and subsequently large abdominal bulging and knew that her hernia was back. She has been experiencing pain and has been to the emergency room multiple times. She is tearful in the office. She also had previous history of opioid abuse however has not filled any further prescriptions since March (checked via [facility]). She is eating well without any nausea or vomiting. Review of Systems Constitutional: as noted in HPI. Gastrointestinal: as noted in HPI. Active Problems Chronic narcotic use (305.50) (F11.90) Chronic pain (338.29) (G89.29) Incarcerated ventral hernia (552.20) (K43.6) Post-op pain (338.18) (G89.18) Postoperative examination (V67.00) (Z09) Ventral hernia (553.20) (K43.9) Surgical History History of Appendectomy laparoscopic 2007 History of section History of Cholecystectomy 2007 History of Colonoscopy 2008 History of Hernia repair Family History Family history of cerebrovascular accident (CVA) (V17.1) (Z82.3) Social History Chronic narcotic use (305.50) (F11.90) Allergies Toradol Hives;; Recorded By: Marizol Farrell; 07/08/2020 10:53:29 AM Zotatiana Hivazeem;; Recorded By: Marizol Farrell; 07/08/2020 10:53:29 AM Current Meds Medication NameInstruction oxyCODONE HCl - 5 MG Oral TabletTAKE 1 TABLET Every twelve hours PROzac CAPS Vitals Vital Signs Recorded: 01Sep2020 02:05PM Fqlycfdb962 Xoqyxqfnw52 Height5 ft 5 in Kjyccs755 lb BMI Oxszbxlirh11.09 BSA Calculated2.33 Physical Exam Gen ? well appearing, morbidly obese Eyes ? PER EOMI, sclerae anicteric Head / Neck ? neck supple Respiratory ? non labored respirations Cardio ? regular rate and rhythm GI ?large ventral abdominal hernia with some loss of domain. Extremities- warm, well perfused, no edema Neuro- alert, oriented Results/Data Complete Blood [id number] 06:Aye Salomon Test NameResultFlagReference White Blood Cell Count9.4 x10E9/L4.4 - 11.3 Red Blood Cell Count4.57 x10E12/LSee Below Reference Range: 4.00 - 5.20 Huzhfkrkwj46.2 g/dLSee Below Reference Range: 12.0 - 16.0 HCT42.2 %See Below Reference Range: 36.0 - 46.0 MCV92 fL80 - 100 MCHC33.6 g/dLSee Below Reference Range: 32.0 - 36.0 Platelet Csrzb216 x10E9/L150 - 450 RDW-CV13.7 %See Below Reference Range: 11.5 - 14.5 Lactate, [id number] 06:Aye Salomon Test NameResultFlagReference Lactate, Level1.7 mmol/L0.4 - 2.0 Venipuncture immediately after or during the administration of Metamizole may lead to falsely low results. Testing should be performed immediately prior to Metamizole dosing. Basic Metabolic [id number] 06:Aye Salomon Test NameResultFlagReference Glucose, Jtmnq401 mg/dLH74 - 99 Sodium, Fsksj358 mmol/LL136 - 145 POTASSIUM4.4 mmol/L3.5 - 5.3 MILD HEMOLYSIS DETECTED. The result may be falsely elevated due to hemolysis or other interferents. Clinical correlation is recommended. Repeat testing may be considered. Chloride, Nzkox491 mmol/L98 - 107 Bicarbonate, Serum22 mmol/L21 - 32 Anion Gap, Serum14 mmol/L10 - 20 Blood Urea Nitrogen, Serum9 mg/dL6 - 23 CREATININE0.52 mg/dLSee Below Reference Range: 0.50 - 1.05 GFR Non >60 mL/min/1.73m2>60 GFR >60 mL/min/1.73m2>60 CALCULATIONS OF ESTIMATED GFR ARE PERFORMED USING THE MDRD STUDY EQUATION FOR THE IDMS-TRACEABLE CREATININE METHODS. CLIN CHEM 2007;53:766-72 Calcium, Serum9.0 mg/dL8.6 - 10.3 CT Abdomen and Pelvis with IV [id number] 05:11PMNon Ambulatory, Provider Ordering Provider: CORKY MCKEE [id number] Abdomen and Pelvis with Contrast(Report) Interpreted by: LEONARD CASTREJON 08/17/20 17:19 Patient Name: MEL WALL STUDY: CT ABDOMEN AND PELVIS W IV CONTRAST; 08/17/2020 5:11 pm INDICATION: stable. Patient had hernia surgery in March of 2020. 2 weeks ago, she noticed another bulge in the abdomen, increased pain and blood in the stool COMPARISON: 08/06/2020 ACCESSION NUMBER(S): [id number] ORDERING CLINICIAN: CORKY MCKEE TECHNIQUE: CT of the abdomen and pelvis was performed. 90 mL Omnipaque 350 FINDINGS: LOWER CHEST: Images of the lung bases show no infiltrate or pleural fluid. ABDOMEN: LIVER: There is no hepatic mass. BILE DUCTS: There is no intrahepatic, common hepatic or common bile ductal dilatation. GALLBLADDER: Status post cholecystectomy. PANCREAS: The pancreas is unremarkable. SPLEEN: The spleen is unremarkable. There is no splenic mass or splenomegaly. ADRENAL GLANDS: The adrenal glands are unremarkable. KIDNEYS AND URETERS: The kidneys function symmetrically. There is a small simple right renal cyst. There is no intrarenal calculus or hydronephrosis. BOWEL: There is no bowel wall thickening, dilatation or obstruction. VESSELS: The abdominal and pelvic vessels are unremarkable. PERITONEUM/RETROPERITONEUM/L YMPH NODES: There is no retroperitoneal or pelvic adenopathy. There is no ascites. ABDOMINAL WALL: There is a large widely diastatic abdominal wall hernia. This is in the midline in the supraumbilical region. There is an area of opening measuring 15.2 cm in transverse dimension. There is herniated nondilated non thickened colon and small bowel. There is no induration to suggest incarceration. BONE AND SOFT TISSUE: There is no acute osseous finding. There is no soft tissue abnormality. Status post tubal ligation. IMPRESSION: 1. Large widely diastatic may mid ventral upper abdominal wall hernia. 2. Small simple right renal cyst. 3. Status post cholecystectomy. Electronically signed by: LEONARD CASTREJON 08/17/20 17:19 Signatures Electronically signed by : Mike Mcgrath MD; Sep 07 2020 10:08PM EST (Author) Normal Touchworks CT ABD/PEL WO IVCONon 2019 CT ABD/PEL WO IVCON Final Report DATE OF EXAM: Aug 21 2020 1:17PM [facility] 0531 - CT ABD/PEL WO IVCON / PROCEDURE REASON: Mass or lump, abdomen pelvis Physician Interpretation EXAMINATION: CT ABDOMEN AND PELVIS WITHOUT IV CONTRAST CLINICAL HISTORY: Mass, hernia, pain TECHNIQUE: Non-IV contrast imaging of the abdomen and pelvis was performed using standard technique, scanning from just above the dome of the diaphragm to the symphysis pubis. Unenhanced imaging is limited for the evaluation of some intra-abdominal and pelvic pathology. MQ: CTAPWO_3 Contrast: IV: None : ml of CT Radiation dose: Integrated Dose-length product (DLP) for this visit = 1042.[address] Dose Reduction Employed: mAs-kVp adjusted based on patient size-age COMPARISON: 12/28/2019 RESULT: Abdomen / Pelvis: Liver: Hepatic steatosis. Hepatomegaly. Liver measures 26 cm. Biliary: S/p cholecystectomy. Spleen: Splenomegaly. Spleen measures 15.1 cm. Pancreas: Unremarkable. Adrenals: No mass. Kidneys: No calculus, hydronephrosis. Subcentimeter hypodensity in the left kidney is too small to characterize. It is unchanged. GI Tract: Large and small bowel loops as well as a portion of the gastric body within the ventral abdominal wall hernia. No bowel dilation. Postsurgical changes to the small bowel. Appendix not visualized. Lymph Nodes: No lymphadenopathy. Mesentery/peritoneum: No ascites. Retroperitoneum: No mass. Vasculature: No abdominal aortic or iliac artery aneurysm. Pelvis: No mass or ascites. Tubal ligation clips. Bones/Soft Tissues: No acute osseous abnormality. There is a large ventral abdominal wall hernia containing loops of nondilated small and large bowel as well as a portion of the gastric body. The entire hernia is not included in the moxsd-nz-xjtx, incompletely assessed. The neck of the hernia measures approximately 14.6 cm. T9 vertebral body sclerotic lesion is unchanged, likely bone island. Lower thorax: Unremarkable. Postmaster Relief (topogram) images: No additional findings. IMPRESSION: There is a large ventral abdominal wall hernia containing loops of nondilated small and large bowel as well as a portion of the gastric body. The entire hernia is not included in the voinn-eh-ldqj, and is thus incompletely assessed. The neck of the hernia measures approximately 14.6 cm. The hernia has increased in size compared to the prior study. Hepatosplenomegaly and hepatic steatosis. Automatic Door Mechanic: HUMAIRA Transcribe Date/Time: Aug 21 2020 1:21P Dictated by : LIZETT COLUNGA MD This examination was interpreted and the report reviewed and electronically signed by: LIZETT COLUNGA MD on Aug 21 2020 1:41PM EST Normal [facility] Hematologyon 08-18-2020 Hematocrit (Bld) [Volume fraction] 42.2 % See Below [facility] Work Phone: Comment on above: Reference Range: 36. 0 - 46.0 Hemoglobin (Bld) [Mass/Vol] 14.2 g/dL See Below [facility] Work Phone: Comment on above: Reference Range: 12. 0 - 16.0 MCV (RBC) [Entitic vol] 92 fL 80 - 100 [facility] Work Phone: Platelets (Bld) [#/Vol] 326 {x10E9/L} 150 - 450 [facility] Work Phone: RBC (Bld) [#/Vol] 4.57 {x10E12/L} See Below [facility] Work Phone: Comment on above: Reference Range: 4.0 0 - 5.20 WBC (Bld) [#/Vol] 9.4 {x10E9/L} 4.4 - 11.3 [facility] Work Phone: Lactate, Levelon 08-18-2020 Lactate [Moles/Vol] 1.7 mmol/L 0.4 - 2.0 [facility] Work Phone: Comment on above: Venipuncture immedia tely after or during the administration of Metamizole may lead to falsely low results. Testing should be performed immediately prior to Metamizole dosing. Metabolic Panelon 08-18-2020 Anion gap [Moles/Vol] 14 mmol/L 10 - 20 [facility] Work Phone: Calcium [Mass/Vol] 9.0 mg/dL 8.6 - 10.3 [facility] Work Phone: Chloride [Moles/Vol] 103 mmol/L 98 - 107 [facility] Work Phone: CO2 [Moles/Vol] 22 mmol/L 21 - 32 [facility] Work Phone: Creatinine [Mass/Vol] 0.52 mg/dL See Below [facility] Work Phone: Comment on above: Reference Range: 0.5 0 - 1.05 Glucose [Mass/Vol] 121 mg/dL above high threshold 74 - 99 [facility] Work Phone: Potassium [Moles/Vol] 4.4 mmol/L 3.5 - 5.3 [facility] Work Phone: Comment on above: MILD HEMOLYSIS DETEC RACHEL. The result may be falsely elevated due tohemolysis or other interferents. Clinical correlation is recommended.Repeat testing may be considered. Sodium [Moles/Vol] 135 mmol/L below low threshold 136 - 145 [facility] Work Phone: [phone] Urea nitrogen [Mass/Vol] 9 mg/dL 6 - 23 [facility] Work Phone: Otheron 08-18-2020 Erythrocyte distribution width (RBC) [Ratio] 13.7 % See Below -[place] [facility] Work Phone: Comment on above: Reference Range: 11. 5 - 14.5 MCHC (RBC) [Mass/Vol] 33.6 g/dL See Below [facility] Work Phone: Comment on above: Reference Range: 32. 0 - 36.0 >60 >60 [facility] Work Phone: Comment on above: CALCULATIONS OF ADALI MATED GFR ARE PERFORMED USING THE MDRD STUDY EQUATION FOR THE IDMS-TRACEABLE CREATININE METHODS. CLIN CHEM 2007;53:766-72 CT Abdomen and Pelvis with I V Contraston 08-17-2020 CT Abdomen and Pelvis W contrast IV Interpreted by: LEONARD CASTREJON08/17/20 17:19MRN: [id number] Name: MEL AWLL STUDY:CT ABDOMEN AND PELVIS W IV CONTRAST; 08/17/2020 5:11 pm INDICATION:stable. Patient had hernia surgery in March of 2020. 2 weeks ago, shenoticed another bulge in the abdomen, increased pain and blood in thestool COMPARISON:08/06/2020 ORDERING CLINICIAN:CORKY MCKEE TECHNIQUE:CT of the abdomen and pelvis was performed. 90 mL Omnipaque 350 FINDINGS:LOWER CHEST:Images of the lung bases show no infiltrate or pleural fluid. ABDOMEN: LIVER:There is no hepatic mass. BILE DUCTS:There is no intrahepatic, common hepatic or common bile ductaldilatation. GALLBLADDER:Status post cholecystectomy. PANCREAS:The pancreas is unremarkable. SPLEEN:The spleen is unremarkable. There is no splenic mass or splenomegaly. ADRENAL GLANDS:The adrenal glands are unremarkable. KIDNEYS AND URETERS:The kidneys function symmetrically.There is a small simple right renal cyst.There is no intrarenal calculus or hydronephrosis. BOWEL:There is no bowel wall thickening, dilatation or obstruction. VESSELS:The abdominal and pelvic vessels are unremarkable. PERITONEUM/RETROPERITONEUM/L YMPH NODES:There is no retroperitoneal or pelvic adenopathy. There is noascites. ABDOMINAL WALL:There is a large widely diastatic abdominal wall hernia. This is inthe midline in the supraumbilical region. There is an area of openingmeasuring 15.2 cm in transverse dimension. There is herniatednondilated non thickened colon and small bowel. There is noinduration to suggest incarceration. BONE AND SOFT TISSUE:There is no acute osseous finding. There is no soft tissue abnormality.Status post tubal ligation. IMPRESSION:1. Large widely diastatic may mid ventral upper abdominal wall hernia.2. Small simple right renal cyst.3. Status post cholecystectomy.Electronical ly signed by: LEONARD CASTREJON 08/17/20 17:19 Normal [facility] Work Phone: Comment on above: Ordering Provider: Ludivina MCKEE [id number] Complete Blood Count + Diffe rentialon 08-17-2020 Basophils (Bld) [#/Vol] 0.10 {x10E9/L} See Below [facility] Work Phone: Comment on above: Reference Range: 0.0 0 - 0.10 Ordering Provider: Ludivina Nelson Basophils/100 WBC (Bld) 0.9 % 0.0 - 2.0 [facility] Work Phone: Comment on above: Ordering Provider: Ludivina Nelson Eosinophils (Bld) [#/Vol] 0.30 {x10E9/L} See Below [facility] Work Phone: Comment on above: Reference Range: 0.0 0 - 0.70 Ordering Provider: Ludivina MCKEE [id number] Eosinophils/100 WBC (Bld) 1.9 % 0.0 - 6.0 [facility] Work Phone: Comment on above: Ordering Provider: Ludivina Nelson Erythrocyte distribution width (RBC) [Ratio] 13.5 % See Below [facility] Work Phone: Comment on above: Reference Range: 11. 5 - 14.5 Ordering Provider: Ludivina Nelson Hematocrit (Bld) [Volume fraction] 45.5 % See Below [facility] Work Phone: Comment on above: Reference Range: 36. 0 - 46.0 Ordering Provider: Ludivina Nelson Hemoglobin (Bld) [Mass/Vol] 15.1 g/dL See Below [facility] Work Phone: Comment on above: Reference Range: 12. 0 - 16.0 Ordering Provider: Ludivina Nelson Lymphocytes (Bld) [#/Vol] 2.90 {x10E9/L} See Below [facility] Work Phone: Comment on above: Reference Range: 1.2 0 - 4.80 Ordering Provider: Ludivina Nelson Lymphocytes/100 WBC (Bld) 20.6 % See Below [facility] Work Phone: Comment on above: Reference Range: 13. 0 - 44.0 Ordering Provider: Ludivina Nelson MCHC (RBC) [Mass/Vol] 33.2 g/dL See Below [facility] Work Phone: Comment on above: Reference Range: 32. 0 - 36.0 Ordering Provider: Ludivina Nelson MCV (RBC) [Entitic vol] 91 fL 80 - 100 [facility] Work Phone: Comment on above: Ordering Provider: Ludivina Nelson Monocytes (Bld) [#/Vol] 0.80 {x10E9/L} See Below [facility] Work Phone: Comment on above: Reference Range: 0.1 0 - 1.00 Ordering Provider: Ludivina Nelson Monocytes/100 WBC (Bld) 5.4 % 2.0 - 10.0 [facility] Work Phone: Comment on above: Ordering Provider: Ludivina Nelson Neutrophils/100 WBC (Bld) 71.2 % See Below [facility] Work Phone: Comment on above: Reference Range: 40. 0 - 80.0 Ordering Provider: Ludivina Nelson Platelets (Bld) [#/Vol] 406 {x10E9/L} 150 - 450 [facility] Work Phone: Comment on above: Ordering Provider: Ludivina Nelson RBC (Bld) [#/Vol] 4.97 {x10E12/L} See Below [facility] Work Phone: Comment on above: Reference Range: 4.0 0 - 5.20 Ordering Provider: Ludivina Nelson WBC (Bld) [#/Vol] 14.0 {x10E9/L} above high threshold 4.4 - 11.3 [facility] Work Phone: Comment on above: Ordering Provider: Ludivina Nelson WBC (Bld) [#/Vol] 0.1 {/100_WBC} [facility] Work Phone: Comment on above: Ordering Provider: Ludivina Nelson Complete Blood Count + Differential 10.00 {x10E9/L} above high threshold See Below [facility] Work Phone: Comment on above: Reference Range: 1.2 0 - 7.70 Percent differential counts (%) should be interpreted in the context of the absolute cell counts (cells/L). Ordering Provider: Ludivina Nelson Coronavirus 2019 RNA by PCR, Symptomaticon 08-17-2020 EMPLOYED IN HEALTHCARE No [facility] Work Phone: Comment on above: Ordering Provider: Ludivina Nelson FIRST COVID NASAL SWAB TEST? No [facility] Work Phone: Comment on above: Ordering Provider: Ludivina Nelson ICU? No [facility] Work Phone: Comment on above: Ordering Provider: Ludivina Nelson Patient was hospitalized because of this condition Yes [facility] Work Phone: Comment on above: Ordering Provider: Ludivina Nelson status No -[facility] Work Phone: Comment on above: Ordering Provider: Ludivina Nelson RESIDENT IN CONGREGATE CARE SETTING? No [facility] Work Phone: Comment on above: Ordering Provider: Ludivina Nelson SYMPTOMATIC DEFINED BY CDC No [facility] Work Phone: Comment on above: Ordering Provider: Ludivina MCKEE [id number] Coronavirus 2019 RNA by PCR, Symptomatic NOT DETECTED See Below [facility] Work Phone: Comment on above: SOURCE: Nasal, Nasop haryngealReference Range: Not Detected.This assay is designed to detect the N2 and E genes of SARS-CoV-2 via nucleic acid amplification. A Not Detected result does not preclude COVID-19 infection since the adequacy of sample collection and/or low viral burden may result in presence of viral nucleic acids below the clinical sensitivity of this test method. Fact sheet for providers: www.[employer].gov/media/787204/downloadFact sheet for patients: www.[employer].gov/media/060845/downloadThis test has received FDA Emergency Use Authorization (EUA) and has been verified by [facility]. This test is only authorized for the duration of time that circumstances exist to justify the authorization of the emergency use of in vitro diagnostic tests for the detection of SARS-CoV-2 virus and/or diagnosis of COVID-19 infection under section 564(b)(1) of the Act, 21 U.S.C. 360bbb-3(b)(1), unless the authorization is terminated or revoked sooner. [facility] is certified under CLIA-88 as qualified to perform high complexity testing. Testing is performed in the [facility] laboratory located at [address] [place] [address]. Ordering Provider: Ludivina MCKEE [id number] Cult, Urineon 08-17-2020 Bacteria identified Cx Nom (U) PATIENT: MEL WALL LOCATION: [address]#: [id number] : 85 AGE: SEX: F ORDERED BY: SAMIRA MCKEE: URINE COLLECTED: 08/17/20 16:10ANTIBIOTICS AT VANDA.: RECEIVED : 08/18/20 12:51SITE: R E S U L T S URINE CULTURE,BACTERIAL FINAL 08/19/20 08:27 MULTIPLE ORGANISMS PRESENT, PROBABLE CONTAMINATION PLEASE REPEAT CULTURE. Abnormal [facility] Work Phone: Comment on above: Ordering Provider: Ludivina Nelson Lactate, Levelon 08-17-2020 Lactate [Moles/Vol] 1.4 mmol/L 0.4 - 2.0 [facility] Work Phone: Comment on above: Venipuncture immedia tely after or during the administration of Metamizole may lead to falsely low results. Testing should be performed immediately prior to Metamizole dosing. Ordering Provider: Tanna PRITCHETT Lactate [Moles/Vol] 2.1 mmol/L above high threshold 0.4 - 2.0 [facility] Work Phone: Comment on above: Venipuncture immedia tely after or during the administration of Metamizole may lead to falsely low results. Testing should be performed immediately prior to Metamizole dosing. Ordering Provider: Ludivina Nelson Metabolic Panelon 08-17-2020 ALP [Catalytic activity/Vol] 55 U/L 33 - 110 [facility] Work Phone: Comment on above: Ordering Provider: Ludivina Nelson Anion gap [Moles/Vol] 14 mmol/L 10 - 20 [facility] Work Phone: Comment on above: Ordering Provider: Ludivina Nelson Bilirubin [Mass/Vol] 0.4 mg/dL 0.0 - 1.2 [facility] Work Phone: Comment on above: Ordering Provider: Ludivina Nelson Calcium [Mass/Vol] 9.5 mg/dL 8.6 - 10.3 [facility] Work Phone: Comment on above: Ordering Provider: Ludivina Nelson Chloride [Moles/Vol] 105 mmol/L 98 - 107 [facility] Work Phone: Comment on above: Ordering Provider: Ludivina Nelson CO2 [Moles/Vol] 22 mmol/L 21 - 32 [facility] Work Phone: Comment on above: Ordering Provider: Ludivina Nelson Creatinine [Mass/Vol] 0.55 mg/dL See Below [facility] Work Phone: Comment on above: Reference Range: 0.5 0 - 1.05 Ordering Provider: Ludivina Nelson Glucose [Mass/Vol] 106 mg/dL above high threshold 74 - 99 [facility] Work Phone: Comment on above: Ordering Provider: Ludivina Nelson Potassium [Moles/Vol] 4.3 mmol/L 3.5 - 5.3 [facility] Work Phone: Comment on above: Ordering Provider: Ludivina Nelson Protein [Mass/Vol] 7.5 g/dL 6.4 - 8.2 [facility] Work Phone: Comment on above: Ordering Provider: Ludivina Nelson Sodium [Moles/Vol] 137 mmol/L 136 - 145 [facility] Work Phone: Comment on above: Ordering Provider: Ludivina Nelson Urea nitrogen [Mass/Vol] 9 mg/dL 6 - 23 [facility] Work Phone: Comment on above: Ordering Provider: Ludivina Nelson Otheron 08-17-2020 Albumin BCP dye [Mass/Vol] 4.5 g/dL 3.4 - 5.0 [facility] Work Phone: Comment on above: Ordering Provider: Ludivina Nelson ALT With P-5'-P [Catalytic activity/Vol] 14 U/L 7 - 45 [facility] Work Phone: Comment on above: Patients treated wit h Sulfasalazine may generate falsely decreased results for ALT. Ordering Provider: Ludivina Nelson AST With P-5'-P [Catalytic activity/Vol] 14 U/L 9 - 39 [facility] Work Phone: Comment on above: Ordering Provider: Ludivina Nelson >60 >60 [facility] Work Phone: Comment on above: Ordering Provider: Ludivina BENSON MCKEE Leslie CALCULATIONS OF ADALI MATED GFR ARE PERFORMED USING THE MDRD STUDY EQUATION FOR THE IDMS-TRACEABLE CREATININE METHODS. CLIN CHEM 2007;53:766-72 URINALYSIS WITH CULTURE IF I NDICATEDon 08-17-2020 Appearance (U) HAZY CLEAR [facility] Work Phone: Comment on above: Ordering Provider: Ludivina FLYNNRichi MCKEE Leslie Color (U) Yellow See Below [facility] Work Phone: Comment on above: Reference Range: STR AW,YELLOW Ordering Provider: Ludivina FLYNNRichi STACYGAGANDEEP Nelson Glucose Ql (U) Negative NEGATIVE [facility] Work Phone: Comment on above: Ordering Provider: Ludivina Nelson Ketones Ql (U) Negative NEGATIVE [facility] Work Phone: Comment on above: Ordering Provider: Ludivina Nelson Leukocyte esterase Test strip Ql (U) Negative NEGATIVE [facility] Work Phone: Comment on above: Ordering Provider: Ludivina Nelson pH (U) 5.0 [pH] 5.0 - 8.0 [facility] Work Phone: Comment on above: Ordering Provider: Ludivina Nelson Protein (U) [Mass/Vol] 30(1+) Abnormal NEGATIVE [facility] Work Phone: Comment on above: Ordering Provider: Ludivina Nelson RBC (U) [#/Vol] Negative NEGATIVE [facility] Work Phone: Comment on above: Ordering Provider: Ludivina Nelson Specific gravity (U) [Rel density] 1.023 1 See Below [facility] Work Phone: Comment on above: Reference Range: 1.0 05 - 1.035 Ordering Provider: Ludivina STACYGAGANDEEP Nelson URINALYSIS WITH CULTURE IF INDICATED Negative NEGATIVE [facility] Work Phone: Comment on above: Ordering Provider: Ludivina GEEK RAFI Nelson URINALYSIS WITH CULTURE IF INDICATED <2.0 0.0 - 1.9 [facility] Work Phone: Comment on above: Ordering Provider: Ludivina Nelson Urinalysis, Microscopicon Bacteria LM.HPF (Urine sed) [#/Area] 1+ Abnormal [facility] Work Phone: Comment on above: Ordering Provider: Ludivina Nelson Urinalysis, Microscopic 1+ [facility] Work Phone: Comment on above: Ordering Provider: Ludivina Nelson Urinalysis, Microscopic 47 {/HPF} [facility] Work Phone: Comment on above: Ordering Provider: Ludivina Nelson Urinalysis, Microscopic 1 {/HPF} 0-5 [facility] Work Phone: Comment on above: Ordering Provider: Ludivina Nelson Urinalysis, Microscopic 7 {/HPF} Abnormal 0-5 [facility] Work Phone: Comment on above: Ordering Provider: Ludivina Nelson .Auto Diffon 06-16-2020 Basophil, Absolute 0.10 10 3/mcL Normal 0.00-0.19 [facility] ([place]) Comment on above: Performed By: #### C BC, ADIFF, ANEU, BMP, GFR #### [address] [address] Basophils/100 WBC (Bld) 1.1 % Normal 0.0-2.5 [facility] ([place]) Comment on above: Performed By: #### C BC, ADIFF, ANEU, BMP, GFR #### [address] [address] Eosinophil, Absolute 0.20 10 3/mcL Normal 0.00-0.40 [facility] ([place]) Comment on above: Performed By: #### C BC, ADIFF, ANEU, BMP, GFR #### [address] [address] Eosinophils/100 WBC (Bld) 1.9 % Normal 0.0-7.0 [facility] ([place]) Comment on above: Performed By: #### C BC, ADIFF, ANEU, BMP, GFR #### [address] [address] Lymphocyte, Absolute 3.30 10 3/mcL Normal 0.77-3.85 [facility] ([place]) Comment on above: Performed By: #### C BC, ADIFF, ANEU, BMP, GFR #### [address] [address] Lymphocytes/100 WBC (Bld) 32.3 % Normal 10.0-50.0 [facility] ([place]) Comment on above: Performed By: #### C BC, ADIFF, ANEU, BMP, GFR #### [address] [address] Monocyte, Absolute 0.80 10 3/mcL Normal 0.15-1.00 [facility] ([place]) Comment on above: Performed By: #### C BC, ADIFF, ANEU, BMP, GFR #### [address] [address] Monocytes/100 WBC (Bld) 8.0 % Normal 1.7-13.0 [facility] ([place]) Comment on above: Performed By: #### C BC, ADIFF, ANEU, BMP, GFR #### [address] [address] Neutrophils/100 WBC (Bld) 56.7 % Normal 37.0-80.0 [facility] ([place]) Comment on above: Performed By: #### C BC, ADIFF, ANEU, BMP, GFR #### [address] [address] .GFRon 06-16-2020 GFR Non- 104 ml/min/1.73sqm Normal [facility] ([place]) Comment on above: Result Comment: GFR Population mean for , [...] 15 mL/min/1.73 square meters Performed By: #### C BC, ADIFF, ANEU, BMP, GFR #### [address] [address] GFR 126 ml/min/1.73sqm Normal [facility] ([place]) Comment on above: Result Comment: GFR Population mean for , [...] 15 mL/min/1.73 square meters Performed By: #### C BC, ADIFF, ANEU, BMP, GFR #### [address] [address] .NEUABSon 06-16-2020 Neutrophil, Absolute 5.80 10 3/mcL Normal 2.85-6.16 [facility] ([place]) Comment on above: Performed By: #### C BC, ADIFF, ANEU, BMP, GFR #### [address] [address] BMPon 06-16-2020 BUN/Creatinine Ratio 15 ratio Normal 7-27 [facility] ([place]) Comment on above: Performed By: #### C BC, ADIFF, ANEU, BMP, GFR #### [address] [address] Calcium [Mass/Vol] 9.3 mg/dL Normal 8.4-10.2 [facility] ([place]) Comment on above: Performed By: #### C BC, ADIFF, ANEU, BMP, GFR #### [address] [address] Chloride [Moles/Vol] 102 mmol/L Normal 98-107 [facility] ([place]) Comment on above: Performed By: #### C BC, ADIFF, ANEU, BMP, GFR #### [address] [address] CO2 [Moles/Vol] 28 mmol/L Normal 22-29 [facility] ([place]) Comment on above: Performed By: #### C BC, ADIFF, ANEU, BMP, GFR #### [address] [address] Creatinine [Mass/Vol] 0.65 mg/dL Normal 0.55-1.02 [facility] ([place]) Comment on above: Performed By: #### C BC, ADIFF, ANEU, BMP, GFR #### [address] [address] Electrolyte Balance 10.0 mEq/L Normal [facility] ([place]) Comment on above: Performed By: #### C BC, ADIFF, ANEU, BMP, GFR #### [address] [address] Glucose [Mass/Vol] 102 mg/dL Normal 70-105 [facility] ([place]) Comment on above: Performed By: #### C BC, ADIFF, ANEU, BMP, GFR #### [address] [address] Potassium [Moles/Vol] 4.1 mmol/L Normal 3.5-5.1 [facility] ([place]) Comment on above: Performed By: #### C BC, ADIFF, ANEU, BMP, GFR #### [address] [address] Sodium [Moles/Vol] 140 mmol/L Normal 136-145 [facility] ([place]) Comment on above: Performed By: #### C BC, ADIFF, ANEU, BMP, GFR #### [place] [address] Urea nitrogen [Mass/Vol] 10 mg/dL Normal 7-18 [facility] ([place]) Comment on above: Performed By: #### C BC, ADIFF, ANEU, BMP, GFR #### [place] [address] CBCon 06-16-2020 Erythrocyte distribution width (RBC) [Ratio] 13.8 % Normal 11.5-14.5 [facility] ([place]) Comment on above: Performed By: #### C BC, ADIFF, ANEU, BMP, GFR #### [place] [address] Hematocrit (Bld) [Volume fraction] 43.7 % Normal 37.0-47.0 [facility] ([place]) Comment on above: Performed By: #### C BC, ADIFF, ANEU, BMP, GFR #### [place] [address] Hgb 14.4 G/dL Normal 12.0-16.0 [facility] ([place]) Comment on above: Performed By: #### C BC, ADIFF, ANEU, BMP, GFR #### [place] [address] MCH (RBC) [Entitic mass] 30.2 pg Normal 27.0-31.2 [facility] ([place]) Comment on above: Performed By: #### C BC, ADIFF, ANEU, BMP, GFR #### [place] [address] MCHC 32.9 G/dL Low 33.0-37.0 [facility] ([place]) Comment on above: Performed By: #### C BC, ADIFF, ANEU, BMP, GFR #### [place] [address] MCV (RBC) [Entitic vol] 91.8 fL Normal 80.0-94.0 [facility] ([place]) Comment on above: Performed By: #### C BC, ADIFF, ANEU, BMP, GFR #### [address] [address] Platelet 298 10 3/mcL Normal 130-400 [facility] ([place]) Comment on above: Performed By: #### C BC, ADIFF, ANEU, BMP, GFR #### [address] [address] Platelet mean volume (Bld) [Entitic vol] 7.1 fL Low 7.4-10.4 [facility] ([place]) Comment on above: Performed By: #### C BC, ADIFF, ANEU, BMP, GFR #### [address] [address] RBC 4.76 10 6/mcL Normal 4.20-5.40 [facility] ([place]) Comment on above: Performed By: #### C BC, ADIFF, ANEU, BMP, GFR #### [address] [address] WBC 10.20 10 3/mcL Normal 4.60-10.80 [facility] ([place]) Comment on above: Performed By: #### C BC, ADIFF, ANEU, BMP, GFR #### [address] [address] [address] ABD/PELVIS W/ IV CONTRAST ONLYon 06-16-2020 CT ABD/PELVIS W/ IV CONTRAST ONLY ORIGINAL CT ABD/PELVIS W/ IV CONTRAST ONLY, 06/15/2020 11:19 PM INDICATION: pain COMPARISON: January 2020 Technique: CT of the abdomen and pelvis following uncomplicated administration of intravenous contrast, with sagittal and coronal reconstructions. This exam was performed according to our departmental dose optimization program, and includes the following measures where applicable: automated exposure control, adjustment of the mAs and/or kVp according to patient size and/or exam, and an iterative reconstruction algorithm. FINDINGS: There is a RIGHT renal cyst. The remaining abdominal organs are unremarkable in appearance. Bowel is poorly evaluated in the absence of oral contrast. There are bowel anastomoses. There is a tubal ligation. There is a ventral hernia containing a loop of large bowel and a small bowel anastomosis. No obstruction is seen. There is a 5 cm superficial fluid collection to the RIGHT of the umbilicus. There is no pelvic free fluid. IMPRESSION: 1. Increased ventral hernia and increased associated herniation of bowel. No obstruction is seen. 2. New superficial fluid collection near the umbilicus. Interpreted By: Celina Garnica MD Preliminary Report By: Celina Garnica MD Electronically Signed By: Celina Garnica MD Dictated Date: 06/15/2020 11:26:46 PM Prelim Date: 06/15/2020 11:26:46 PM Sign Date: 06/15/2020 11:31:59 PM Ordering Provider:Jensen Silverman [facility] ([place]) CT Abdomen and Pelvis with I V Contraston 03-28-2020 CT Abdomen and Pelvis W contrast IV Interpreted by: NAT TINSLEY AZCHSBTP64/19/20 18:06MRN: [id number] Name: [facility] STUDY:CT ABDOMEN AND PELVIS W IV CONTRAST; 03/28/2020 4:57 pm INDICATION:R abd pain post hernia surgery. COMPARISON:02/19/2020 and 01/17/2019 ORDERING CLINICIAN:ANNE-MARIE ZAIDI TECHNIQUE:CT of the abdomen and pelvis was performed after intravenousadministration of 90 cc Omnipaque-350. Multiplanar images arereformatted and submitted for assessment. FINDINGS:LOWER CHEST: Multifocal bibasilar linear atelectasis or scarring. ABDOMEN: LIVER: Steatosis. The right hepatic lobe is enlarged. BILE DUCTS: Normal caliber. GALLBLADDER: Status post cholecystectomy. PANCREAS: Within normal limits. SPLEEN: The spleen measures 15.0 cm in length. ADRENAL GLANDS: Within normal limits. KIDNEYS AND URETERS: Stable cyst in the interpolar region of theright kidney. 1.4 cm hypoattenuating mass in the lower pole of leftkidney is stable since January 2019. No hydronephrosis bilaterally.Ureters are normal in appearance. PELVIS: BLADDER: Within normal limits. REPRODUCTIVE ORGANS: Bilateral tubal ligation clips are noted.Uterus and ovaries are normal size. Caesarean section scar noted. Theanterior fundus is adhesed to the undersurface of the anteriorabdominal wall. VESSELS: Aorta and IVC are normal caliber. BOWEL: There is colonic diverticulosis, however no acutediverticulitis. Enteric resection and anastomosis changes are notedin the left central abdomen. Overall, the large and small bowel loopsare normal caliber. No enlarged mesenteric lymph nodes. The appendixis not seen. Nothing suspicious for acute appendicitis. PERITONEUM AND RETROPERITONEUM: No ascites or loculated/drainablefluid collection. No pneumoperitoneum. No lymphadenopathy. BONE AND ABDOMINAL WALL: There is anterior abdominal wall scarring.The right paramidline fat and bowel loop containing ventral hernia inthe epigastric region on the February 2020 examination has since beenrepaired; however, now there is an 8.0 x 3.5 x 7.6 cm oval-shapedsimple fluid attenuation abnormality in the same area with nosignificant enhancement and no associated fat stranding. Rectusdiastasis has developed since the previous exam. No destructive bonylesion or acute fracture. IMPRESSION:1. Cyst status post ventral herniorrhaphy since the most recent priorstudy from February 2020; there is an 8.0 cm nonenhancing oval-shapedsimple fluid attenuation collection in the anterior abdominal walladjacent to the surgical site. This may represent a chronicpostoperative hematoma/seroma or lymphocele. The sterility of thiscollection is unable to be determined on the basis of this exam.2. No acute intra-abdominal or pelvic pathology is otherwisedemonstrated.3. Hepatosplenomegaly and hepatic steatosis. Electronically signed by: NAT CAMPA 03/28/20 18:06 Normal [facility] Work Phone: Comment on above: Ordering Provider: T IM MOOMAW [address] Complete Blood Count + [facility] 03-28-2020 Basophils (Bld) [#/Vol] 0.10 {x10E9/L} See Below [facility] Work Phone: Comment on above: Reference Range: 0.0 0 - 0.10 Ordering Provider: T IM MOOMAW [address] Basophils/100 WBC (Bld) 1.1 % 0.0 - 2.0 [facility] Work Phone: Comment on above: Ordering Provider: T IM MOOMAW [address] Eosinophils (Bld) [#/Vol] 0.50 {x10E9/L} See Below [facility] Work Phone: Comment on above: Reference Range: 0.0 0 - 0.70 Ordering Provider: Ladan IM MOOMAW [address] Eosinophils/100 WBC (Bld) 4.9 % 0.0 - 6.0 [facility] Work Phone: Comment on above: Ordering Provider: Ladan IM MOOMAW [address] Erythrocyte distribution width (RBC) [Ratio] 13.1 % See Below [facility] Work Phone: Comment on above: Reference Range: 11. 5 - 14.5 Ordering Provider: Ladan IM MOOMAW [address] Hematocrit (Bld) [Volume fraction] 40.9 % See Below [facility] Work Phone: Comment on above: Reference Range: 36. 0 - 46.0 Ordering Provider: Ladan IM MOOMAW 55130 Hemoglobin (Bld) [Mass/Vol] 13.8 g/dL See Below [facility] Work Phone: Comment on above: Reference Range: 12. 0 - 16.0 Ordering Provider: Ladan IM MOOMAW [address] Lymphocytes (Bld) [#/Vol] 2.60 {x10E9/L} See Below [facility] Work Phone: Comment on above: Reference Range: 1.2 0 - 4.80 Ordering Provider: Ladan IM MOOMAW [address] Lymphocytes/100 WBC (Bld) 26.5 % See Below [facility] Work Phone: Comment on above: Reference Range: 13. 0 - 44.0 Ordering Provider: Ladan IM MOOMAW [address]645 MCHC (RBC) [Mass/Vol] 33.7 g/dL See Below [facility] Work Phone: Comment on above: Reference Range: 32. 0 - 36.0 Ordering Provider: Ladan IM MOOMAW [address] MCV (RBC) [Entitic vol] 92 fL 80 - 100 [facility] Work Phone: Comment on above: Ordering Provider: Ladan IM MOOMAW [address] Monocytes (Bld) [#/Vol] 0.60 {x10E9/L} See Below [facility] Work Phone: Comment on above: Reference Range: 0.1 0 - 1.00 Ordering Provider: Ladan IM MOOMAW [address] Monocytes/100 WBC (Bld) 5.9 % 2.0 - 10.0 [facility] Work Phone: Comment on above: Ordering Provider: T IM MOOMAW 37591 Neutrophils (Bld) [#/Vol] 6.10 {x10E9/L} See Below [facility] Work Phone: Comment on above: Reference Range: 1.2 0 - 7.70 Percent differential counts (%) should be interpreted in the context of the absolute cell counts (cells/L). Ordering Provider: Ladan IM MOOMAW 18710 Neutrophils/100 WBC (Bld) 61.6 % See Below [facility] Work Phone: Comment on above: Reference Range: 40. 0 - 80.0 Ordering Provider: Ladan IM MOOMAW 13973 Platelets (Bld) [#/Vol] 304 {x10E9/L} 150 - 450 [facility] Work Phone: Comment on above: Ordering Provider: Ladan IM MOOMAW [address]3573 RBC (Bld) [#/Vol] 4.44 {x10E12/L} See Below [facility] Work Phone: Comment on above: Reference Range: 4.0 0 - 5.20 Ordering Provider: Ladan IM MOOMAW [address] WBC (Bld) [#/Vol] 0.1 {/100_WBC} [facility] Work Phone: Comment on above: Ordering Provider: T IM MOOMAW [address] WBC (Bld) [#/Vol] 9.9 {x10E9/L} 4.4 - 11.3 [facility] Work Phone: Comment on above: Ordering Provider: T IM MOOMAW 30205 Lactate, Levelon 03-28-2020 Lactate [Moles/Vol] 1.6 mmol/L 0.4 - 2.0 [facility] Work Phone: Comment on above: Venipuncture immedia tely after or during the administration of Metamizole may lead to falsely low results. Testing should be performed immediately prior to Metamizole dosing. Ordering Provider: Ladan IM MOOMAW 02925 Lipase, Serumon 03-28-2020 Lipase [Catalytic activity/Vol] 19 U/L 9 - 82 [facility] Work Phone: Comment on above: Venipuncture immedia tely after or during the administration of Metamizole may lead to falsely low results. Testing should be performed immediately prior to Metamizole dosing. L-nwhprh-x-benzoquinone imine (metabolite of Acetaminophen) will generate erroneously low results in samples for patients that have taken toxic doses of acetaminophen. Ordering Provider: Ladan IM MOOMAW 17511 Metabolic Panelon 03-28-2020 ALP [Catalytic activity/Vol] 47 U/L 33 - 110 [facility] Work Phone: Comment on above: Ordering Provider: Ladan IM MOOMAW [address] Anion gap [Moles/Vol] 14 mmol/L 10 - 20 [facility] Work Phone: Comment on above: Ordering Provider: Ladan IM MOOMAW 43792 Bilirubin [Mass/Vol] 0.4 mg/dL 0.0 - 1.2 [facility] Work Phone: Comment on above: Ordering Provider: Ladan IM MOOMAW [address] Calcium [Mass/Vol] 9.3 mg/dL 8.6 - 10.3 [facility] Work Phone: Comment on above: Ordering Provider: Ladan IM MOOMAW 16726 Chloride [Moles/Vol] 104 mmol/L 98 - 107 [facility] Work Phone: Comment on above: Ordering Provider: Ladan IM MOOMAW [address]2581 CO2 [Moles/Vol] 22 mmol/L 21 - 32 [facility] Work Phone: Comment on above: Ordering Provider: Ladan IM MOOMAW [address]99[address] Creatinine [Mass/Vol] 0.45 mg/dL below low threshold See Below [facility] Work Phone: Comment on above: Reference Range: 0.5 0 - 1.05 Ordering Provider: Ladan SINGH MOOMAW [address]79 Glucose [Mass/Vol] 99 mg/dL 74 - 99 [facility] Work Phone: Comment on above: Ordering Provider: Ladan MOOMAW [address]70 Potassium [Moles/Vol] 3.8 mmol/L 3.5 - 5.3 [facility] Work Phone: Comment on above: Ordering Provider: Ladan MOOMAW 37953 Protein [Mass/Vol] 6.6 g/dL 6.4 - 8.2 [facility] Work Phone: Comment on above: Ordering Provider: Ladan MOOMAW 51900 Sodium [Moles/Vol] 136 mmol/L 136 - 145 [facility] Work Phone: Comment on above: Ordering Provider: Ladan DinomarketOMAW [address]857 Urea nitrogen [Mass/Vol] 9 mg/dL 6 - 23 [facility] Work Phone: Comment on above: Ordering Provider: Ladan DinomarketOMAW [address]22[address] Otheron 03-28-2020 Albumin BCP dye [Mass/Vol] 4.2 g/dL 3.4 - 5.0 [facility] Work Phone: Comment on above: Ordering Provider: Ladan MOOMAW 72748 ALT With P-5'-P [Catalytic activity/Vol] 19 U/L 7 - 45 [facility] Work Phone: Comment on above: Patients treated wit h Sulfasalazine may generate falsely decreased results for ALT. Ordering Provider: Ladan IM MOOMAW 55496 AST With P-5'-P [Catalytic activity/Vol] 15 U/L 9 - 39 [facility] Work Phone: Comment on above: Ordering Provider: Ladan IM MOOMAW 26519 >60 >60 [facility] Work Phone: Comment on above: CALCULATIONS OF ADALI MATED GFR ARE PERFORMED USING THE MDRD STUDY EQUATION FOR THE IDMS-TRACEABLE CREATININE METHODS. CLIN CHEM 2007;[id number] Ordering Provider: Ladan IM MOOMAW 75336 URINALYSIS WITH CULTURE IF I NDICATEDon 03-28-2020 Appearance (U) HAZY CLEAR [facility] Work Phone: Comment on above: Ordering Provider: T IM MOOMAW 59939 Color (U) Yellow See Below [facility] Work Phone: Comment on above: SOURCE: Reference Ra nge: STRAW,YELLOW Ordering Provider: Ladan IM MOOMAW 50688 Glucose Ql (U) Negative NEGATIVE [facility] Work Phone: Comment on above: Ordering Provider: T IM MOOMAW 25840 Ketones Ql (U) Negative NEGATIVE [facility] Work Phone: Comment on above: Ordering Provider: Ladan IM MOOMAW 13090 Leukocyte esterase Test strip Ql (U) Negative NEGATIVE [facility] Work Phone: Comment on above: Ordering Provider: T IM MOOMAW 35491 pH (U) 6.0 [pH] 5.0 - 8.0 [facility] Work Phone: Comment on above: Ordering Provider: T IM MOOMAW 60090 Protein (U) [Mass/Vol] Negative NEGATIVE [facility] Work Phone: Comment on above: Ordering Provider: T IM MOOMAW 89882 RBC (U) [#/Vol] Negative NEGATIVE [facility] Work Phone: Comment on above: Ordering Provider: Ladan IM MOOMAW 15899 Specific gravity (U) [Rel density] 1.021 1 See Below [facility] Work Phone: Comment on above: Reference Range: 1.0 05 - 1.035 Ordering Provider: Ladan IM MOOMAW 05045 URINALYSIS WITH CULTURE IF INDICATED Negative NEGATIVE [facility] Work Phone: Comment on above: Ordering Provider: T IM MOOMAW 68082 URINALYSIS WITH CULTURE IF INDICATED <2.0 0.0 - 1.9 [facility] Work Phone: Comment on above: Ordering Provider: Ladan ZAIDI 51191 Urine Teston 03-28 HCG ( test) Ql (U) Negative Negative [facility] Work Phone: Comment on above: Ordering Provider: Ladan ZAIDI [address] [facility] Surgical Pathology Depar tmenton 03-11-2020 [facility] Surgical Pathology Department Name [facility] Pathologist: ROXANA OLIVARES MD Date of Procedure: 03/11/2020 Date Received: 03/12/2020 Date Reported 03/17/2020 Submitting Physician: MIKE MCGRATH MD Location: [facility] Copy To/Referring/Attending: MIKE MCGRATH MD Other External # FINAL DIAGNOSIS A. HERNIA SAC, EXCISION: -- MESOTHELIAL-LINED FIBROADIPOSE TISSUE CONSISTENT WITH HERNIA SAC B. EXPLANTED MESH FROM ABDOMEN, EXCISION: -- SYNTHETIC MATERIAL, SEE GROSS DESCRIPTION -- FIBROADIPOSE TISSUE WITH FIBROSIS, FOREIGN BODY GIANT CELL REACTION AND POLARIZABLE FOREIGN MATERIAL Electronically Signed Out By ROXANA OLIVARES MD/TAMMY By the signature on this report, the individual or group listed as making the Final Interpretation/Diagnosis certifies that they have reviewed this case. Clinical History: Physician Contact Number: [phone] Fixative (A): Formalin Fixative (B): Formalin Clinical Diagnosis History VENTRAL HERNIA/ EXPLANTED MESH FROM ABDOMEN Specimens Submitted As: A: HERNIA SAC B: EXPLANTED MESH FROM ABDOMEN Gross Description: A: Received in formalin, labeled with the patient's name and hospital number and hernia sac, is a membraneous segment of tissue measuring 6.5 x 3.1 x 2.1 cm. Areas of induration, nodularity, hemorrhage, necrosis are not seen. Increment Manager sections are submitted in one cassette. IAD B: Received in formalin, labeled with the patient's name and hospital number and explanted mesh from abdomen, is a segment of synthetic material with attached soft tissue measuring 13.1 x 12.2 x 1.1 cm. Photographs have been taken. Increment Manager sections are submitted in one cassette. IAD iad/03/13/2020 Normal [facility] Comment on above: Performed By: #### U HCS #### [facility] Surgical Pathology Department [id number] [place] [id number] CORONAVIRUS 2019, SCREEN ASY MPTOMATICon 03-09-2020 CORONAVIRUS 2019,PCR NOT DETECTED Normal Not Detected [facility] Comment on above: Result Comment: . This assay is designed to detect SARS-CoV-2 based on replication of specific regions of the RNA from the SARS-CoV-2 virus. A Not Detected result does not preclude 2019-nCoV infection since the adequacy of sample collection and/or low viral burden may result in presence of viral nucleic acids below the clinical sensitivity of this test method. Fact sheet for providers: https://www.fda.gov/media/556161/download Fact sheet for patients: https://www.fda.gov/media/391486/download This test has been validated by the point of sale associate but [facility] independent review of this validation is pending. This test has been verified by [facility] ([facility]). This test is only authorized for the duration of time that circumstances exist to justify the authorization of the emergency use of in vitro diagnostic tests for the detection of SARS-CoV-2 virus and/or diagnosis of COVID-19 infection under section 564(b)(1) of the Act, 21 U.S.C. 360bbb-3(b)(1), unless the authorization is terminated or revoked sooner. [facility] is certified under CLIA-88 as qualified to perform high complexity testing. Testing is performed in the [facility] laboratories located at [address] [place] [address]. Performed By: #### C OVSC #### [place] [address] CORONAVIRUS 2019, SCREEN ASY MPTOMATICon 03-08-2020 Lab Specimen Source Nasal, Nasopharyngeal Normal [facility] Comment on above: Performed By: #### C OVSC #### [place] [address] Complete Blood Count + Diffe rentialon 03-03-2020 Basophils (Bld) [#/Vol] 0.10 {x10E9/L} See Below -[facility] Work Phone: Comment on above: Reference Range: 0.0 0 - 0.10 Ordering Provider: Henna LUCIA MOHAN 94614 Basophils/100 WBC (Bld) 0.7 % 0.0 - 2.0 [facility] Work Phone: Comment on above: Ordering Provider: Henna LUCIA MOHAN 60734 Eosinophils (Bld) [#/Vol] 0.20 {x10E9/L} See Below [facility] Work Phone: Comment on above: Reference Range: 0.0 0 - 0.70 Ordering Provider: Henna LUCIA MOHAN 93695 Eosinophils/100 WBC (Bld) 2.1 % 0.0 - 6.0 [facility] Work Phone: Comment on above: Ordering Provider: Henna LUCIA MOHAN 61882 Erythrocyte distribution width (RBC) [Ratio] 13.3 % See Below [facility] Work Phone: Comment on above: Reference Range: 11. 5 - 14.5 Ordering Provider: Henna LUCIA MOHAN 21956 Hematocrit (Bld) [Volume fraction] 42.7 % See Below [facility] Work Phone: Comment on above: Reference Range: 36. 0 - 46.0 Ordering Provider: Henna MOHAN 60382 Hemoglobin (Bld) [Mass/Vol] 14.2 g/dL See Below [facility] Work Phone: Comment on above: Reference Range: 12. 0 - 16.0 Ordering Provider: Henna LUCIA MOHAN 04381 Lymphocytes (Bld) [#/Vol] 2.90 {x10E9/L} See Below [facility] Work Phone: Comment on above: Reference Range: 1.2 0 - 4.80 Ordering Provider: Henna LUCIA MOHAN 42455 Lymphocytes/100 WBC (Bld) 28.3 % See Below [facility] Work Phone: Comment on above: Reference Range: 13. 0 - 44.0 Ordering Provider: Henna MOHAN 88107 MCHC (RBC) [Mass/Vol] 33.3 g/dL See Below [facility] Work Phone: Comment on above: Reference Range: 32. 0 - 36.0 Ordering Provider: Henna LUCIA MOHAN 89202 MCV (RBC) [Entitic vol] 93 fL 80 - 100 [facility] Work Phone: Comment on above: Ordering Provider: Henna LUCIA MOHAN 45428 Monocytes (Bld) [#/Vol] 0.60 {x10E9/L} See Below [facility] Work Phone: Comment on above: Reference Range: 0.1 0 - 1.00 Ordering Provider: Henna LUCIA MOHAN 55520 Monocytes/100 WBC (Bld) 6.1 % 2.0 - 10.0 [facility] Work Phone: Comment on above: Ordering Provider: Henna LUCIA MOHAN 41949 Neutrophils (Bld) [#/Vol] 6.30 {x10E9/L} See Below [facility] Work Phone: Comment on above: Reference Range: 1.2 0 - 7.70 Percent differential counts (%) should be interpreted in the context of the absolute cell counts (cells/L). Ordering Provider: Henna MOHAN 94482 Neutrophils/100 WBC (Bld) 62.8 % See Below [facility] Work Phone: Comment on above: Reference Range: 40. 0 - 80.0 Ordering Provider: Henna MOHAN 96522 Platelets (Bld) [#/Vol] 327 {x10E9/L} 150 - 450 [facility] Work Phone: Comment on above: Ordering Provider: Henna LUCIA MOHAN 09414 RBC (Bld) [#/Vol] 4.61 {x10E12/L} See Below [facility] Work Phone: Comment on above: Reference Range: 4.0 0 - 5.20 Ordering Provider: Henna MOHAN 86556 WBC (Bld) [#/Vol] 10.1 {x10E9/L} 4.4 - 11.3 [facility] Work Phone: Comment on above: Ordering Provider: Henna DAHLERIBERTO 80234 WBC (Bld) [#/Vol] 0.1 {/100_WBC} [facility] Work Phone: Comment on above: Ordering Provider: Henna MYERS MARQUES 07584 HCG, Serum - Qualitativeon 0 03-03-2020 HCG ( test) Ql Negative Negative [facility] Work Phone: Comment on above: Ordering Provider: Henna DAHLERIBERTO 40914 Lactate, Levelon 03-03-2020 Lactate [Moles/Vol] 1.4 mmol/L 0.4 - 2.0 [facility] Work Phone: Comment on above: Venipuncture immedia tely after or during the administration of Metamizole may lead to falsely low results. Testing should be performed immediately prior to Metamizole dosing. Ordering Provider: Henna MYERS MARQUES 09286 Lipase, Serumon 03-03-2020 Lipase [Catalytic activity/Vol] 25 U/L 9 - 82 [facility] Work Phone: Comment on above: Venipuncture immedia tely after or during the administration of Metamizole may lead to falsely low results. Testing should be performed immediately prior to Metamizole dosing. N-fdxdgm-z-benzoquinone imine (metabolite of Acetaminophen) will generate erroneously low results in samples for patients that have taken toxic doses of acetaminophen. Ordering Provider: Henna LUCIA MARQUES 92611 Metabolic Panelon 03-03-2020 ALP [Catalytic activity/Vol] 48 U/L 33 - 110 [facility] Work Phone: Comment on above: Ordering Provider: Henna VILLABo MOHAN 45873 Anion gap [Moles/Vol] 12 mmol/L 10 - 20 [facility] Work Phone: Comment on above: Ordering Provider: Henna VILLABo MOHAN 76389 Bilirubin [Mass/Vol] 0.3 mg/dL 0.0 - 1.2 [facility] Work Phone: Comment on above: Ordering Provider: Henna DAHLERIBERTO 10670 Calcium [Mass/Vol] 9.7 mg/dL 8.6 - 10.3 [facility] Work Phone: Comment on above: Ordering Provider: Henna DAHLWONRichi 85647 Chloride [Moles/Vol] 106 mmol/L 98 - 107 [facility] Work Phone: Comment on above: Ordering Provider: Henna DAHLERIBERTO 46011 CO2 [Moles/Vol] 23 mmol/L 21 - 32 [facility] Work Phone: Comment on above: Ordering Provider: Henna DAHLERIBERTO 65269 Creatinine [Mass/Vol] 0.58 mg/dL See Below [facility] Work Phone: Comment on above: Reference Range: 0.5 0 - 1.05 Ordering Provider: Henna DAHLERIBERTO 08425 Glucose [Mass/Vol] 89 mg/dL 74 - 99 [facility] Work Phone: Comment on above: Ordering Provider: Henna DAHLERIBERTO 75797 Potassium [Moles/Vol] 4.1 mmol/L 3.5 - 5.3 [facility] Work Phone: Comment on above: Ordering Provider: Henna DAHLERIBERTO 06770 Protein [Mass/Vol] 6.8 g/dL 6.4 - 8.2 [facility] Work Phone: Comment on above: Ordering Provider: Henna DAHLERIBERTO 48841 Sodium [Moles/Vol] 137 mmol/L 136 - 145 [facility] Work Phone: Comment on above: Ordering Provider: Henna DAHLERIBERTO 52864 Urea nitrogen [Mass/Vol] 8 mg/dL 6 - 23 [facility] Work Phone: Comment on above: Ordering Provider: Henna VILLABo MOHAN 77243 Otheron 03-03-2020 Interpreted by: UVALDO OLIVIA03/03/20 15:49MRN: [id number] Name: MEL WALL STUDY:CHEST 1 VIEW; 03/03/2020 3:43 pm INDICATION:upper abdominal pain. COMPARISON:None. ORDERING CLINICIAN:EMANUEL MOHAN FINDINGS:A single AP portable radiograph of the chest was obtained. Elevation/eventration of the right hemidiaphragm. No focalinfiltrate, pleural effusion or pneumothorax. Cardiac silhouette iswithin normal limits for size. IMPRESSION:Elevation/eventra tion of the right hemidiaphragm. No focal infiltrate.Electronically signed by: SHONDA OLIVIA 03/03/20 15:49 Normal [facility] Work Phone: Comment on above: Ordering Provider: Henna MOHAN 57766 Albumin BCP dye [Mass/Vol] 4.4 g/dL 3.4 - 5.0 [facility] Work Phone: Comment on above: Ordering Provider: Henna MOHAN 94073 ALT With P-5'-P [Catalytic activity/Vol] 20 U/L 7 - 45 [facility] Work Phone: Comment on above: Patients treated wit h Sulfasalazine may generate falsely decreased results for ALT. Ordering Provider: Henna MOHAN 66321 AST With P-5'-P [Catalytic activity/Vol] 12 U/L 9 - 39 [facility] Work Phone: Comment on above: Ordering Provider: Henna MOHAN 18293 >60 >60 [facility] Work Phone: Comment on above: Ordering Provider: Henna MOHAN 12684 CALCULATIONS OF ADALI MATED GFR ARE PERFORMED USING THE MDRD STUDY EQUATION FOR THE IDMS-TRACEABLE CREATININE METHODS. CLIN CHEM 2007;53:766-72 Follow Up (General Surgery)o n 02-28-2020 Follow Up (General Surgery) Diagnoses/Problems Incarcerated ventral hernia (552.20) (K43.6) Orders Ventral hernia Start: oxyCODONE HCl - 5 MG Oral Tablet; TAKE 1 TABLET EVERY 4 HOURS NEEDED FOR PAIN Rx By: Mike Mcgrath; Dispense: 2 Days ; #:6 Tablet; Refill: 0;For: Ventral hernia; ANNIE = N; Verified Transmission to [facility]; Last Updated By: Alan Monk; 02/28/2020 1:19:55 PM Provider Impressions Ideally as we had discussed before I would like her to lose 50-60 pounds before elective hernia repair. However, given her severe symptoms and multiple hospitalizations interfering with her life and work, we would proceed with laparoscopic possible open ventral hernia repair. We discussed indications, risks, benefits, alternatives and patient is agreeable to proceed consent form was signed. I provided her oxycodone refill. We will schedule her surgery in near future. Chief Complaint Ref by Wendy for umbilical hernia. c/o abdominal pain , nausea and vomiting. History of Present [id number] female who I have seen in the hospital for acutely incarcerated fat-containing recurrent abdominal wall hernia. She comes in today for follow-up area and states that she is still having significant amount of a and has some re-presented to the hospital a couple more times and was admitted due to significant pain, nausea vomiting and elevated lactate. States that she is now trying to mostly control her pain using Tylenol and ibuprofen but still needing some narcotics especially at night. Review of Systems All 10 point review of systems completed and pertinent positives as per history of present illness. Active Problems Ventral hernia (553.20) (K43.9) Surgical History History of Appendectomy laparoscopic 2008 History of section History of Cholecystectomy 2007 History of Colonoscopy 2008 History of Hernia repair Family History Family history of cerebrovascular accident (CVA) (V17.1) (Z82.3) Current Meds Medication NameInstruction oxyCODONE HCl - 5 MG Oral Capsule Phenergan 25 MG TABS (Promethazine HCl) Vitals Vital Signs Recorded: [id number] 08:37AM Heart Rate84 Zgqegkmw900 Jtvamrfqb61 Height5 ft 5 in Ydmfdc343 lb BMI Aesmfrqofs20.42 BSA Calculated2.36 Physical Exam Gen ? well appearing Eyes ? PER EOMI, sclerae anicteric Head / Neck ? neck supple Respiratory ? non labored respirations Cardio ? regular rate and rhythm GI ? abdomen soft, right abdominal wall ventral hernia with tenderness, partially reducible Extremities- warm, well perfused, no edema - no CVA tenderness Neuro- alert, oriented Results/Data Xray Chest 1 [id number] 03:43[facility], Provider Ordering Provider: EMANUEL MOHAN 04007 Test NameResultFlagReference Xray Chest 1 View(Report) Interpreted by: SHONDA OLIVIA 03/03/20 15:49 Patient Name: MEL WALL STUDY: CHEST 1 VIEW; 03/03/2020 3:43 pm INDICATION: upper abdominal pain. COMPARISON: None. ACCESSION NUMBER(S): [id number] ORDERING CLINICIAN: EMANUEL MOHAN FINDINGS: A single AP portable radiograph of the chest was obtained. Elevation/eventration of the right hemidiaphragm. No focal infiltrate, pleural effusion or pneumothorax. Cardiac silhouette is within normal limits for size. IMPRESSION: Elevation/eventration of the right hemidiaphragm. No focal infiltrate. Electronically signed by: SHONDA OLIVIA 03/03/20 15:49 Lipase, [id number] 03:22[facility], Provider Ordering Provider: EMANUEL MOHAN 38982 Test NameResultFlagReference Lipase, Serum25 U/L9 - 82 Venipuncture immediately after or during the administration of Metamizole may lead to falsely low results. Testing should be performed immediately prior to Metamizole dosing. X-lnbncx-p-benzoquinone imine (metabolite of Acetaminophen) will generate erroneously low results in samples for patients that have taken toxic doses of acetaminophen. Comprehensive Metabolic [id number] 03:22[facility], Provider Ordering Provider: EMANUEL MOHAN 03738 Test NameResultFlagReference Glucose, Serum89 mg/dL74 - 99 Sodium, Hjxxu991 mmol/L136 - 145 POTASSIUM4.1 mmol/L3.5 - 5.3 Chloride, Unkcw248 mmol/L98 - 107 Bicarbonate, Serum23 mmol/L21 - 32 Anion Gap, Serum12 mmol/L10 - 20 Blood Urea Nitrogen, Serum8 mg/dL6 - 23 CREATININE0.58 mg/dLSee Below Reference Range: 0.50 - 1.05 Calcium, Serum9.7 mg/dL8.6 - 10.3 Albumin, Serum4.4 g/dL3.4 - 5.0 ALKALINE [id number] U/L33 - 110 Protein, Total Serum6.8 g/dL6.4 - 8.2 Bilirubin, S Normal [facility] ED Provider Noteon 0 ED Provider Note Provider Note - ED v 2: Chart Review: ED NOTES ED NOTES: Presents here with abdominal pain. She has a history of ventral hernias. Apparently she was hospitalized recently and saw the surgery. She states that Dr. Cabrera decided that they wanted to do the surgery as an outpatient rather than emergently. She was discharged with pain medication. She states today her pain started becoming more severe and she started vomiting. She states her abdomen got very firm and distended and hard and the area of the hernia got very painful. She has not had a fever. She denies any chest pain or shortness of breath. She denies any numbness tingling or weakness. HISTORY OF PRESENTING ILLNESS MEL is a 34 year old Female and was seen by me at 19-Feb-2020 21:46 for a chief complaint of abdominal pain (PT TO ED WITH C/O I HAVE HAD A LOT OF PROBLEMS RECENTLY WITH HERNIAS AND HAS AN APPOINTMENT WITH SURGEONS SOON. PT REPORTS PAIN GOT WORSE AGAIN THIS MORNING. HAS N/V. REPORTS NARCOTIC PAIN MEDS NOT HELPING.)(1). Triage Information: Most recent Vital Sign Value Date Temp (F): 98.4 02-19-2020 21:42 Temp (C): 36.8 02-19-2020 21:42 Heart Rate (beats/min): 151 02-19-2020 21:42 Respirations (breaths/min): 20 02-19-2020 21:42 SpO2 (%): 96 02-19-2020 21:42 BP Systolic (mm Hg): 138 02-19-2020 21:42 BP Diastolic (mm Hg): 84 02-19-2020 21:42 PAST MEDICAL HISTORY ATTESTATION: I have reviewed and confirmed nurse's/medic's notes for patient's medications, allergies, medical history, and surgical history ALLERGIES/INTOLERANCES: Allergy Allergen: Toradol Type: Drug Reaction: Hives/Urticaria (Severe) Allergen: Zofran Type: Drug Reaction: Resp Distress (Severe) HEALTH HISTORY: No documented data. OUTPATIENT MEDICATIONS: Home Medications Review Status for Reconciliation: N/A Med Status: Patient Currently Takes Medications Drug Name: Phenergan 25 mg oral tablet Instructions: 25 milligram(s) orally , As Needed Drug Name: Multiple Vitamins oral tablet Instructions: 1 tab(s) orally once a day Drug Name: IBU 600 mg oral tablet Instructions: 1 tab(s) orally every 6 hours K:43.0 Drug Name: oxycodone-acetaminophen 5 mg-325 mg oral tablet Instructions: 1 tab(s) orally every 4 hours, As Needed -Pain - Mod to severe pain Dx: K43.0 SIGNIFICANT EVENTS: Past Surgical History Description:Ventral Hernia Repairs X 5 Description:Cholecystectomy Description:Appendectomy 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 : no(1) Is : no(1) REVIEW OF SYSTEMS CONSTITUTIONAL: Negative for: anorexia, chills, diaphoresis, fever, malaise, weakness and weight loss EYES: Negative for: itching, pain, photophobia, redness and vision changes ENMT Ears: Negative for: discharge, itching, hearing disturbance and pain Nose: Negative for: congestion, discharge, nose bleeds and sneezing Mouth/Teeth: Negative for: gum bleeding, mouth lesions and toothache Throat/Neck: Negative for: dysphagia, hoarseness, throat pain, neck lumps, neck stiffness and swollen glands CARDIOVASCULAR: Negative for: chest pain, diaphoresis, edema, irregular rhythm, orthopnea, palpitations and tachycardia RESPIRATORY: Negative for: cough, dyspnea, hemoptysis, pleuritic chest pain and wheezing GASTROINTESTINAL: POSITIVE for: abdominal pain, nausea and vomiting; Negative for: constipation and diarrhea; hematochezia and melena GENITOURINARY: Negative for: cloudy urine, dysuria, frequency, hematuria and strong smelling urine; MUSCULOSKELETAL: Negative for: back pain, joint pain, neck pain, stiffness and weakness INTEGUMENTARY: Negative for: abrasions, hives, itching, jaundice and lumps; NEUROLOGICAL: Negative for: altered mental status, dizziness, gait abnormality, headache, loss of consciousness and low extremity numbness; sensory deficits PSYCHIATRIC: Negative for: anxiety, depression and insomnia ENDOCRINE: Negative for: change in weight, polydipsia and polyuria HEME/LYMPH: Negative for: anemia, easy bleeding and easy bruising ALLERGIC/IMMUNOLOGIC: Negative for: immunosuppressive disorder; pruritus and rash PHYSICAL EXAM CONSTITUTIONAL: Appearance: well appearing Development: well developed Distress: MODERATE Mentation: awake Mood: appropriate Nourishment: well HENMT: Head Examination: atraumatic Face: no signs of abnormality Nose: normal inspection Mouth: normal mouth inspection Throat: normal pharynx \ Normal [employer] Telephone Note_UHon 02-19-20 Telephone Note_ Message Pt called to say that she has two hernias in lower abdomen but is having pain above on right side. Said she was worried that is was strangulated. Denies fever, etc, just hurts when swallowing. Hard to explain per pt. Advised if pain was that bad should go to ER. Pt then said she's had that happen in past and pain isn't that bad now. Advised to try OTC pain meds and if didn't get better to go to ER. Informed Dr. Mcgrath. Signatures Electronically signed by : Mellisa Lagos L.P.N.; Feb 19 2020 2:37PM EST (Author) Normal [facility] Basic Metabolic Panelon - Anion gap [Moles/Vol] 13 mmol/L Normal 9-18 [facility] Comment on above: Performed By: #### G FR #### [facility] [address] [place] [address] Calcium [Mass/Vol] 9.0 mg/dL Normal 8.5-10.2 [facility] Comment on above: Performed By: #### G FR #### [facility] [address] [place] [address] Chloride [Moles/Vol] 102 mmol/L Normal 97-105 [facility] Comment on above: Performed By: #### G FR #### [facility] [address] [place], [place] [address] CO2 Blood 23 mmol/L Normal 22-30 [facility] Comment on above: Performed By: #### G FR #### [facility] [address] [place] [address] Creatinine [Mass/Vol] 0.47 mg/dL Low 0.58-0.96 [facility] Comment on above: Performed By: #### G FR #### [facility] [address] [place], [place] [address] Glucose [Mass/Vol] 96 mg/dL Normal 74-99 [facility] Comment on above: Result Comment: The [place] [employer] (ADA) provides guidance for cutoff values for fasting glucose and random glucose. The ADA defines fasting as no caloric intake for at least 8 hours.Fasting plasma glucose results between 100 to 125 mg/dL indicate increased risk for diabetes (prediabetes). Fasting plasma glucose results greater than or equal to 126 mg/dL meet the criteria for diagnosis of diabetes. In the absence of unequivocal hyperglycemia, results should be confirmed by repeat testing. In a patient with classic symptoms of hyperglycemia or hyperglycemic crisis, random plasma glucose results greater than or equal to 200 mg/dL meet the criteria for diagnosis of diabetes. Reference: Standards of Medical Care in Diabetes 2016; [place] [employer]. Diabetes Care. 2016;39(Suppl 1). Performed By: #### G FR #### [place] [address] Potassium [Moles/Vol] 4.0 mmol/L Normal 3.7-5.1 [facility] Comment on above: Performed By: #### G FR #### [facility] [address] [place] [address] Sodium [Moles/Vol] 138 mmol/L Normal 136-144 [facility] Comment on above: Performed By: #### G FR #### [place] [address] Urea nitrogen [Mass/Vol] 6 mg/dL Low 7-21 [facility] Comment on above: Performed By: #### G FR #### [place] [address] Hemogram/Diffon 01-26-2020 Abs Immature Grans 0.05 thou/cmm Normal 0.00-0.05 [facility] Comment on above: Performed By: #### G FR #### [facility] [address] [place] [address] Abs Neut (ANC) 4.36 thou/cmm Normal 1.56-6.13 [facility] Comment on above: Performed By: #### G FR #### [place] [address] Abs. Baso 0.02 thou/cmm Normal 0.01-0.08 [facility] Comment on above: Performed By: #### G FR #### [facility] [address] [place] [address] Abs. Charlton 0.47 thou/cmm Normal 0.27-0.70 [facility] Comment on above: Performed By: #### G FR #### [facility] [address] [place] [address] Basophils/100 WBC (Bld) 0.3 % Normal [facility] Comment on above: Performed By: #### G FR #### [facility] [address] [place] [address] Eosinophils (Bld) [#/Vol] 0.19 thou/cmm Normal 0.00-0.31 [facility] Comment on above: Performed By: #### G FR #### [place] [address] Eosinophils/100 WBC (Bld) 2.6 % Normal [facility] Comment on above: Performed By: #### G FR #### [facility] [address] [place] [address] Erythrocyte distribution width (RBC) [Ratio] 12.5 % Normal 11.7-14.4 [facility] Comment on above: Performed By: #### G FR #### [facility] [address] [place] [address] Hematocrit (Bld) [Volume fraction] 38.0 % Normal 34.1-44.9 [facility] Comment on above: Performed By: #### G FR #### [facility] [address] [place] [address] Hemoglobin (Bld) [Mass/Vol] 12.5 g/dL Normal 11.2-15.7 [facility] Comment on above: Performed By: #### G FR #### [facility] [address] [place] [address] Immature Grans 0.70 % Normal [facility] Comment on above: Performed By: #### G FR #### [place] [address] Lymphocytes (Bld) [#/Vol] 2.11 thou/cmm Normal 1.18-3.74 [facility] Comment on above: Performed By: #### G FR #### [facility] [address] [place], [place] [address] Lymphocytes/100 WBC (Bld) 29.3 % Normal [facility] Comment on above: Performed By: #### G FR #### [facility] [address] [place], [place] [address] MCH (RBC) [Entitic mass] 30.2 pg Normal 25.6-32.2 [facility] Comment on above: Performed By: #### G FR #### [facility] [address] [place], [place] [address] MCHC (RBC) [Mass/Vol] 32.9 % Normal 31.6-34.8 [facility] Comment on above: Performed By: #### G FR #### [address] [address] MCV (RBC) [Entitic vol] 91.8 fL Normal 79.4-94.8 [facility] Comment on above: Performed By: #### G FR #### [address] [address] Monocytes/100 WBC (Bld) 6.5 % Normal [facility] Comment on above: Performed By: #### G FR #### [address] [address] Platelet mean volume (Bld) [Entitic vol] 9.2 fL Low 9.4-12.3 [facility] Comment on above: Performed By: #### G FR #### [facility] [address] [place], [place] [address] Platelets (Bld) [#/Vol] 271 thou/cmm Normal 182-369 [facility] Comment on above: Performed By: #### G FR #### [address] [address] RBC (Bld) [#/Vol] 4.14 mil/cmm Normal 3.93-5.22 [facility] Comment on above: Performed By: #### G FR #### [facility] [address] [place] [address] RDW SD 41.8 fl Normal 36.4-46.3 [facility] Comment on above: Performed By: #### G FR #### [facility] [address] [place] [address] Seg Neutrophil 60.6 % Normal [facility] Comment on above: Performed By: #### G FR #### [facility] [address] [place] [address] WBC (Bld) [#/Vol] 7.19 thou/cmm Normal 3.98-10.04 [facility] Comment on above: Performed By: #### G FR #### [facility] [address] [place] [address] MDRD GFRon 01-26-2020 GFR/1.73 sq M predicted among non-blacks MDRD (S/P/Bld) [Vol rate/Area] mL/min/{1.73_m2} Normal >60mL/min/ 1.73m2 [facility] Comment on above: Result Comment: If t he patient is , multiply the result by 1.210. Performed By: #### P 14 #### [facility] [address] [place] [address] Basic Metabolic Panelon 01-08 Anion gap [Moles/Vol] 12 mmol/L Normal 9-18 [facility] Comment on above: Performed By: #### G FR #### [facility] [address] [place] [address] Calcium [Mass/Vol] 8.8 mg/dL Normal 8.5-10.2 [facility] Comment on above: Performed By: #### G FR #### [facility] [address] [place] [address] Chloride [Moles/Vol] 103 mmol/L Normal 97-105 [facility] Comment on above: Performed By: #### G FR #### [facility] [address] [place] [address] CO2 Blood 23 mmol/L Normal 22-30 [facility] Comment on above: Performed By: #### G FR #### [facility] [address] [place], [place] [address] Creatinine [Mass/Vol] 0.52 mg/dL Low 0.58-0.96 [facility] Comment on above: Performed By: #### G FR #### [facility] [address] [place], [place] [address] Glucose [Mass/Vol] 105 mg/dL High 74-99 [facility] Comment on above: Result Comment: The [place] [employer] (ADA) provides guidance for cutoff values for fasting glucose and random glucose. The ADA defines fasting as no caloric intake for at least 8 hours.Fasting plasma glucose results between 100 to 125 mg/dL indicate increased risk for diabetes (prediabetes). Fasting plasma glucose results greater than or equal to 126 mg/dL meet the criteria for diagnosis of diabetes. In the absence of unequivocal hyperglycemia, results should be confirmed by repeat testing. In a patient with classic symptoms of hyperglycemia or hyperglycemic crisis, random plasma glucose results greater than or equal to 200 mg/dL meet the criteria for diagnosis of diabetes. Reference: Standards of Medical Care in Diabetes 2016; [place] [employer]. Diabetes Care. 2016;39(Suppl 1). Performed By: #### G FR #### [facility] [address] [place], [place] [address] Potassium [Moles/Vol] 3.8 mmol/L Normal 3.7-5.1 [facility] Comment on above: Performed By: #### G FR #### [facility] [address] [place], [place] [address] Sodium [Moles/Vol] 138 mmol/L Normal 136-144 [facility] Comment on above: Performed By: #### G FR #### [facility] [address] [place], [place] [address] Urea nitrogen [Mass/Vol] 7 mg/dL Normal 7-21 [facility] Comment on above: Performed By: #### G FR #### [facility] [address] [place], [place] [address] Anion gap [Moles/Vol] 10 mmol/L Normal 9-18 [facility] Comment on above: Performed By: #### G FR #### [facility] [address] [place], [place] [address] Calcium [Mass/Vol] 8.6 mg/dL Normal 8.5-10.2 [facility] Comment on above: Performed By: #### G FR #### [facility] [address] [place], [place] [address] Chloride [Moles/Vol] 104 mmol/L Normal 97-105 [facility] Comment on above: Performed By: #### G FR #### [facility] [address] [place], [place] [address] CO2 Blood 22 mmol/L Normal 22-30 [facility] Comment on above: Performed By: #### G FR #### [facility] [address] [place], [place] [address] Creatinine [Mass/Vol] 0.43 mg/dL Low 0.58-0.96 [facility] Comment on above: Performed By: #### G FR #### [facility] [address] [place], [place] [address] Glucose [Mass/Vol] 103 mg/dL High 74-99 [facility] Comment on above: Result Comment: The [place] [employer] (ADA) provides guidance for cutoff values for fasting glucose and random glucose. The ADA defines fasting as no caloric intake for at least 8 hours.Fasting plasma glucose results between 100 to 125 mg/dL indicate increased risk for diabetes (prediabetes). Fasting plasma glucose results greater than or equal to 126 mg/dL meet the criteria for diagnosis of diabetes. In the absence of unequivocal hyperglycemia, results should be confirmed by repeat testing. In a patient with classic symptoms of hyperglycemia or hyperglycemic crisis, random plasma glucose results greater than or equal to 200 mg/dL meet the criteria for diagnosis of diabetes. Reference: Standards of Medical Care in Diabetes 2016; [place] [employer]. Diabetes Care. 2016;39(Suppl 1). Performed By: #### G FR #### [facility] [address] [place], [place] [address] Potassium [Moles/Vol] 3.8 mmol/L Normal 3.7-5.1 [facility] Comment on above: Performed By: #### G FR #### [facility] [address] [place], [place] [address] Sodium [Moles/Vol] 136 mmol/L Normal 136-144 [facility] Comment on above: Performed By: #### G FR #### [facility] [address] [place] [address] Urea nitrogen [Mass/Vol] 6 mg/dL Low 7-21 [facility] Comment on above: Performed By: #### G FR #### [place] [address] Hemogram/Diffon 01-25-2020 Abs Immature Grans 0.04 thou/cmm Normal 0.00-0.05 [facility] Comment on above: Performed By: #### G FR #### [place] [address] Abs Neut (ANC) 4.97 thou/cmm Normal 1.56-6.13 [facility] Comment on above: Performed By: #### G FR #### [place] [address] Abs. Baso 0.02 thou/cmm Normal 0.01-0.08 [facility] Comment on above: Performed By: #### G FR #### [place] [address] Abs. Charlton 0.42 thou/cmm Normal 0.27-0.70 [facility] Comment on above: Performed By: #### G FR #### [address] [address] Basophils/100 WBC (Bld) 0.3 % Normal [facility] Comment on above: Performed By: #### G FR #### [address] [address] Eosinophils (Bld) [#/Vol] 0.19 thou/cmm Normal 0.00-0.31 [facility] Comment on above: Performed By: #### G FR #### [place] [address] Eosinophils/100 WBC (Bld) 2.5 % Normal [facility] Comment on above: Performed By: #### G FR #### [address] [place], [place] [address] Erythrocyte distribution width (RBC) [Ratio] 12.6 % Normal 11.7-14.4 [facility] Comment on above: Performed By: #### G FR #### [facility] [address] [place] [address] Hematocrit (Bld) [Volume fraction] 37.3 % Normal 34.1-44.9 [facility] Comment on above: Performed By: #### G FR #### [facility] [address] [place] [address] Hemoglobin (Bld) [Mass/Vol] 12.2 g/dL Normal 11.2-15.7 [facility] Comment on above: Performed By: #### G FR #### [facility] [address] [place] [address] Immature Grans 0.50 % Normal [facility] Comment on above: Performed By: #### G FR #### [facility] [address] [place] [address] Lymphocytes (Bld) [#/Vol] 1.86 thou/cmm Normal 1.18-3.74 [facility] Comment on above: Performed By: #### G FR #### [facility] [address] [place] [address] Lymphocytes/100 WBC (Bld) 24.8 % Normal [facility] Comment on above: Performed By: #### G FR #### [facility] [address] [place] [address] MCH (RBC) [Entitic mass] 30.2 pg Normal 25.6-32.2 [facility] Comment on above: Performed By: #### G FR #### [facility] [address] [place] [address] MCHC (RBC) [Mass/Vol] 32.7 % Normal 31.6-34.8 [facility] Comment on above: Performed By: #### G FR #### [place] [address] MCV (RBC) [Entitic vol] 92.3 fL Normal 79.4-94.8 [facility] Comment on above: Performed By: #### G FR #### [facility] [address] [place], [place] [address] Monocytes/100 WBC (Bld) 5.6 % Normal [facility] Comment on above: Performed By: #### G FR #### [facility] [address] [place] [address] Platelet mean volume (Bld) [Entitic vol] 9.2 fL Low 9.4-12.3 [facility] Comment on above: Performed By: #### G FR #### [facility] [address] [place] [address] Platelets (Bld) [#/Vol] 252 thou/cmm Normal 182-369 [facility] Comment on above: Performed By: #### G FR #### [facility] [address] [place] [address] RBC (Bld) [#/Vol] 4.04 mil/cmm Normal 3.93-5.22 [facility] Comment on above: Performed By: #### G FR #### [facility] [address] [place] [address] RDW SD 42.5 fl Normal 36.4-46.3 [facility] Comment on above: Performed By: #### G FR #### [facility] [address] [place] [address] Seg Neutrophil 66.3 % Normal [facility] Comment on above: Performed By: #### G FR #### [facility] [address] [place] [address] WBC (Bld) [#/Vol] 7.50 thou/cmm Normal 3.98-10.04 [facility] Comment on above: Performed By: #### G FR #### [facility] [address] [place] [address] Abs Immature Grans 0.05 thou/cmm Normal 0.00-0.05 [facility] Comment on above: Performed By: #### G FR #### [facility] [address] [place] [address] Abs Neut (ANC) 4.75 thou/cmm Normal 1.56-6.13 [facility] Comment on above: Performed By: #### G FR #### [facility] [address] [place], [place] [address] Abs. Baso 0.03 thou/cmm Normal 0.01-0.08 [facility] Comment on above: Performed By: #### G FR #### [facility] [address] [place], [place] [address] Abs. Charlton 0.49 thou/cmm Normal 0.27-0.70 [facility] Comment on above: Performed By: #### G FR #### [facility] [address] [place] [address] Basophils/100 WBC (Bld) 0.4 % Normal [facility] Comment on above: Performed By: #### G FR #### [facility] [address] [place] [address] Eosinophils (Bld) [#/Vol] 0.15 thou/cmm Normal 0.00-0.31 [facility] Comment on above: Performed By: #### G FR #### [facility] [address] [place] [address] Eosinophils/100 WBC (Bld) 1.9 % Normal [facility] Comment on above: Performed By: #### G FR #### [facility] [address] [place] [address] Erythrocyte distribution width (RBC) [Ratio] 12.7 % Normal 11.7-14.4 [facility] Comment on above: Performed By: #### G FR #### [facility] [address] [place] [address] Hematocrit (Bld) [Volume fraction] 38.3 % Normal 34.1-44.9 [facility] Comment on above: Performed By: #### G FR #### [facility] [address] [place] [address] Hemoglobin (Bld) [Mass/Vol] 12.6 g/dL Normal 11.2-15.7 [facility] Comment on above: Performed By: #### G FR #### [facility] [address] [place], [place] [address] Immature Grans 0.60 % Normal [facility] Comment on above: Performed By: #### G FR #### [facility] [address] [place], [place] [address] Lymphocytes (Bld) [#/Vol] 2.47 thou/cmm Normal 1.18-3.74 [facility] Comment on above: Performed By: #### G FR #### [facility] [address] [place], [place] [address] Lymphocytes/100 WBC (Bld) 31.1 % Normal [facility] Comment on above: Performed By: #### G FR #### [facility] [address] [place], [place] [address] MCH (RBC) [Entitic mass] 30.7 pg Normal 25.6-32.2 [facility] Comment on above: Performed By: #### G FR #### [facility] [address] [place] [address] MCHC (RBC) [Mass/Vol] 32.9 % Normal 31.6-34.8 [facility] Comment on above: Performed By: #### G FR #### [facility] [address] [place] [address] MCV (RBC) [Entitic vol] 93.2 fL Normal 79.4-94.8 [facility] Comment on above: Performed By: #### G FR #### [facility] [address] [place], [place] [address] Monocytes/100 WBC (Bld) 6.2 % Normal [facility] Comment on above: Performed By: #### G FR #### [facility] [address] [place], [place] [address] Platelet mean volume (Bld) [Entitic vol] 9.2 fL Low 9.4-12.3 [facility] Comment on above: Performed By: #### G FR #### [facility] [address] [place], [place] [address] Platelets (Bld) [#/Vol] 258 thou/cmm Normal 182-369 [facility] Comment on above: Performed By: #### G FR #### [facility] [address] [place] [address] RBC (Bld) [#/Vol] 4.11 mil/cmm Normal 3.93-5.22 [facility] Comment on above: Performed By: #### G FR #### [facility] [address] [place] [address] RDW SD 43.3 fl Normal 36.4-46.3 [facility] Comment on above: Performed By: #### G FR #### [facility] [address] [place] [address] Seg Neutrophil 59.8 % Normal [facility] Comment on above: Performed By: #### G FR #### [facility] [address] [place] [address] WBC (Bld) [#/Vol] 7.94 thou/cmm Normal 3.98-10.04 [facility] Comment on above: Performed By: #### G FR #### [facility] [address] [place] [address] Lactic Acidon 01-25-2020 Lactate [Moles/Vol] 1.9 mmol/L Normal 0.5-2.2 [facility] Comment on above: Performed By: #### G FR #### [facility] [address] [place] [address] Comprehensive Metabolic Pane randy 01-24-2020 Albumin [Mass/Vol] 4.1 g/dL Normal 3.9-4.9 [facility] Comment on above: Performed By: #### P 14 #### [facility] [address] [place] [address] ALP [Catalytic activity/Vol] 47 U/L Normal 34-123 [facility] Comment on above: Performed By: #### P 14 #### [facility] [address] [place] [address] ALT [Catalytic activity/Vol] 14 U/L Normal 7-38 [facility] Comment on above: Performed By: #### P 14 #### [facility] [address] [place] [address] Anion gap [Moles/Vol] 15 mmol/L Normal 9-18 [facility] Comment on above: Performed By: #### P 14 #### [facility] [address] [place], [place] [address] AST [Catalytic activity/Vol] 12 U/L Low 13-35 [facility] Comment on above: Performed By: #### P 14 #### [facility] [address] [place], [place] [address] Bilirubin [Mass/Vol] 0.2 mg/dL Normal 0.2-1.3 [facility] Comment on above: Performed By: #### P 14 #### [facility] [address] [place], [place] [address] Calcium [Mass/Vol] 8.5 mg/dL Normal 8.5-10.2 [facility] Comment on above: Performed By: #### P 14 #### [facility] [address] [place] [address] Chloride [Moles/Vol] 105 mmol/L Normal 97-105 [facility] Comment on above: Performed By: #### P 14 #### [facility] [address] [place], [place] [address] CO2 Blood 18 mmol/L Low 22-30 [facility] Comment on above: Performed By: #### P 14 #### [facility] [address] [place], [place] [address] Creatinine [Mass/Vol] 0.50 mg/dL Low 0.58-0.96 [facility] Comment on above: Performed By: #### P 14 #### [facility] [address] [place] [address] Glucose [Mass/Vol] 125 mg/dL High 74-99 [facility] Comment on above: Result Comment: The [place] [employer] (ADA) provides guidance for cutoff values for fasting glucose and random glucose. The ADA defines fasting as no caloric intake for at least 8 hours.Fasting plasma glucose results between 100 to 125 mg/dL indicate increased risk for diabetes (prediabetes). Fasting plasma glucose results greater than or equal to 126 mg/dL meet the criteria for diagnosis of diabetes. In the absence of unequivocal hyperglycemia, results should be confirmed by repeat testing. In a patient with classic symptoms of hyperglycemia or hyperglycemic crisis, random plasma glucose results greater than or equal to 200 mg/dL meet the criteria for diagnosis of diabetes. Reference: Standards of Medical Care in Diabetes 2016; [place] [employer]. Diabetes Care. 2016;39(Suppl 1). Performed By: #### P 14 #### [facility] [address] [place] [address] Potassium [Moles/Vol] 3.8 mmol/L Normal 3.7-5.1 [facility] Comment on above: Performed By: #### P 14 #### [facility] [address] [place] [address] Protein [Mass/Vol] 6.2 g/dL Low 6.3-8.0 [facility] Comment on above: Performed By: #### P 14 #### [facility] [address] [place] [address] Sodium [Moles/Vol] 138 mmol/L Normal 136-144 [facility] Comment on above: Performed By: #### P 14 #### [facility] [address] [place] [address] Urea nitrogen [Mass/Vol] 9 mg/dL Normal 7-21 [facility] Comment on above: Performed By: #### P 14 #### [facility] [address] [place] [address] Hemogram/Diffon 01-24-2020 Abs Immature Grans 0.11 thou/cmm High 0.00-0.05 [facility] Comment on above: Performed By: #### P 14 #### [facility] [address] [place] [address] Abs Neut (ANC) 7.30 thou/cmm High 1.56-6.13 [facility] Comment on above: Performed By: #### P 14 #### [facility] [address] [place] [address] Abs. Baso 0.03 thou/cmm Normal 0.01-0.08 [facility] Comment on above: Performed By: #### P 14 #### [place] [address] Abs. Charlton 0.54 thou/cmm Normal 0.27-0.70 [facility] Comment on above: Performed By: #### P 14 #### [facility] [address] [place], [place] [address] Basophils/100 WBC (Bld) 0.3 % Normal [facility] Comment on above: Performed By: #### P 14 #### [facility] [address] [place], [place] [address] Eosinophils (Bld) [#/Vol] 0.10 thou/cmm Normal 0.00-0.31 [facility] Comment on above: Performed By: #### P 14 #### [facility] [address] [place], [place] [address] Eosinophils/100 WBC (Bld) 0.9 % Normal [facility] Comment on above: Performed By: #### P 14 #### [facility] [address] [place] [address] Erythrocyte distribution width (RBC) [Ratio] 13.0 % Normal 11.7-14.4 [facility] Comment on above: Performed By: #### P 14 #### [facility] [address] [place], [place] [address] Hematocrit (Bld) [Volume fraction] 37.9 % Normal 34.1-44.9 [facility] Comment on above: Performed By: #### P 14 #### [facility] [address] [place], [place] [address] Hemoglobin (Bld) [Mass/Vol] 12.6 g/dL Normal 11.2-15.7 [facility] Comment on above: Performed By: #### P 14 #### [facility] [address] [place], [place] [address] Immature Grans 1.00 % Normal [facility] Comment on above: Performed By: #### P 14 #### [facility] [address] [place], [place] [address] Lymphocytes (Bld) [#/Vol] 2.52 thou/cmm Normal 1.18-3.74 [facility] Comment on above: Performed By: #### P 14 #### [facility] [address] [place], [place] [address] Lymphocytes/100 WBC (Bld) 23.8 % Normal [facility] Comment on above: Performed By: #### P 14 #### [facility] [address] [place], [place] [address] MCH (RBC) [Entitic mass] 30.7 pg Normal 25.6-32.2 [facility] Comment on above: Performed By: #### P 14 #### [facility] [address] [place], [place] [address] MCHC (RBC) [Mass/Vol] 33.2 % Normal 31.6-34.8 [facility] Comment on above: Performed By: #### P 14 #### [facility] [address] [place] [address] MCV (RBC) [Entitic vol] 92.4 fL Normal 79.4-94.8 [facility] Comment on above: Performed By: #### P 14 #### [facility] [address] [place] [address] Monocytes/100 WBC (Bld) 5.1 % Normal [facility] Comment on above: Performed By: #### P 14 #### [facility] [address] [place], [place] [address] Platelet mean volume (Bld) [Entitic vol] 9.1 fL Low 9.4-12.3 [facility] Comment on above: Performed By: #### P 14 #### [facility] [address] [place], [place] [address] Platelets (Bld) [#/Vol] 256 thou/cmm Normal 182-369 [facility] Comment on above: Performed By: #### P 14 #### [facility] [address] [place], [place] [address] RBC (Bld) [#/Vol] 4.10 mil/cmm Normal 3.93-5.22 [facility] Comment on above: Performed By: #### P 14 #### [facility] [address] [place], [place] [address] RDW SD 43.9 fl Normal 36.4-46.3 [facility] Comment on above: Performed By: #### P 14 #### [facility] [address] [place], [place] [address] Seg Neutrophil 68.9 % Normal [facility] Comment on above: Performed By: #### P 14 #### [facility] [address] [place], [place] [address] WBC (Bld) [#/Vol] 10.59 thou/cmm High 3.98-10.04 [facility] Comment on above: Performed By: #### P 14 #### [facility] [address] [place], [place] [address] Lactic Acidon 01-24-2020 Lactate [Moles/Vol] 1.8 mmol/L Normal 0.5-2.2 [facility] Comment on above: Performed By: #### P 14 #### [facility] [address] [place], [place] [address] Lactate [Moles/Vol] 2.8 mmol/L High 0.5-2.2 [facility] Comment on above: Performed By: #### P 14 #### [facility] [address] [place], [place] [address] Protimeon 01-24-2020 INR Coag (PPP) [Relative time] 0.95 {INR} Normal 0.90-1.30 [facility] Comment on above: Result Comment: Omayra min K Antagonist (VKA) Therapeutic Range: INR 2 to 3 (Target INR of 2.5) Note: For patients treated with VKA drugs, such as warfarin, the [place] [employer] 2012 Guideline recommends a therapeutic INR range of 2 to 3 (target INR of 2.5). This recommendation includes high-risk patients with antiphospholipid syndrome with previous arterial or venous thromboembolism, current-generation mechanical or bioprosthetic aortic heart valve replacement. Note: Patients with mechanical aortic valve replacement and additional risk factors for thromboembolic events (atrial fibrillation, previous thromboembolism, LV dysfunction, hypercoagulable conditions) or an older generation mechanical AVR (i.e., ball in-Cage) or any mechanical MVR should have a INR therapeutic range of 2.5 to 3.5 target INR of 3). Kira GH, et al. Chest 2012; 141:7S-47S Elver RA et al. JACC 2017; 70: 252-289 Performed By: #### P 14 #### [facility] [address] [place], [place] [address] PT Coag (PPP) [Time] 10.3 s Normal 9.7-13.0 [facility] Comment on above: Performed By: #### P 14 #### [facility] [address] [place], [place] [address] CT ABD/PEL W IVCONon 020 CT ABD/PEL W IVCON * * *Final Report* * * DATE OF EXAM: Dec 28 2019 6:36PM [facility] 0530 - CT ABD/PEL W IVCON / PROCEDURE REASON: Hernia, complicated * * * * Physician Interpretation * * * * EXAMINATION: CT ABDOMEN AND PELVIS WITH IV CONTRAST CLINICAL HISTORY: Abdominal pain, ventral hernia TECHNIQUE: CT of the abdomen and pelvis was performed using standard technique, scanning from just above the dome of the diaphragm to the symphysis pubis. Sagittal and coronal reconstructions were performed. MQ: CTAP_3 Contrast: IV: 150 ml of Omnipaque 300 Oral: 900 ml of 50ML Omnipaque [address] Radiation dose: Integrated Dose-length product (DLP) for this visit = 1308 mGy*cm. CT Dose Reduction Employed: Automated exposure control(AEC) and iterative recon COMPARISON: CT abdomen and pelvis December 19, 2019 and December 21, 2018 RESULT: Liver: No mass. Hepatic steatosis. Biliary: No bile duct dilation. Gallbladder is absent. Spleen: No mass. Spleen is mildly enlarged measuring 14.2 cm in length Pancreas: No mass or duct dilation. Adrenals: No mass. Kidneys: No renal or ureteral stone. No hydronephrosis. There is a 1 cm hypodense lesion in the right kidney which measures greater than simple fluid density. This is stable in size from prior CTs. There is a largely exophytic 9 mm low-attenuation lesion in the inferior pole of the left kidney. GI tract: No dilated loops of large or small bowel. There is a 4.5 cm fat-containing hernia in the right midabdomen just to the right of midline (2:91). Below this hernia there is a 6.8 cm hernia containing fat and a portion of a loop of small bowel. The bowel does not appear obstructed in the mouth of the hernia is wide. There is a small fat-containing hernia in the lateral right upper quadrant measuring 2.1 x 1.2 cm (2:64). The appendix is not identified. There are no findings to suggest appendicitis. Lymph nodes: No abdominal or pelvic lymphadenopathy. Mesentery/Peritoneum: No ascites or mass. Retroperitoneum: No mass. Vasculature: The celiac axis and SMA are patent. The portal vein and branches, splenic vein, SMV, and hepatic veins are patent. No abdominal aortic or iliac artery aneurysm. Pelvis: No mass, ascites or fluid collection. Uterus and bladder unremarkable. Bones/Soft Tissues: Stable 1 cm sclerotic lesion within T8 vertebral body. Lower thorax: Lung bases are unremarkable. IMPRESSION: Right parasagittal ventral hernia containing a short segment of small bowel. No findings to suggest bowel obstruction. There are 2 additional fat-containing hernias in the right abdomen. There are 2 renal lesions which measure greater than simple fluid density. These may represent mildly complicated cysts or less likely solid renal lesions. These are stable in size since December 21, 2018. Consider a follow-up CT in one year to assess for continued stability of these lesions. Hepatic steatosis. Automatic Door Mechanic: HUMAIRA Transcribe Date/Time: Dec 28 2019 6:42P Dictated by : CORKY PANTOJA MD This examination was interpreted and the report reviewed and electronically signed by: CORKY PANTOJA MD on Dec 28 2019 6:53PM EST Normal [facility] Comprehensive Panelon 2019 ALP [Catalytic activity/Vol] 46 U/L Normal 45-117 [facility] Comment on above: Performed By: #### P 14 #### [address] [address] Bilirubin [Mass/Vol] 0.2 mg/dL Normal 0.2-1.0 [facility] Comment on above: Result Comment: Use of this assay is not recommended for patients undergoing treatment with eltrombopag due to the potential for falsely elevated results. Performed By: #### P 14 #### [address] [address] Protein [Mass/Vol] 6.9 g/dL Normal 6.4-8.2 [facility] Comment on above: Performed By: #### P 14 #### [address] [place], [place] [address] Creatinine [Mass/Vol] 0.58 mg/dL Normal 0.51-0.95 [facility] Comment on above: Result Comment: Use of this assay is not recommended for patients undergoing treatment with phenindione, due to the potential for falsely depressed results. Performed By: #### P 14 #### [facility] [address] [place], [place] [address] ALT [Catalytic activity/Vol] 38 U/L Normal 12-78 [facility] Comment on above: Performed By: #### P 14 #### [facility] [address] [place], [place] [address] AST [Catalytic activity/Vol] 14 U/L Low 15-37 [facility] Comment on above: Performed By: #### P 14 #### [facility] [address] [place], [place] [address] Albumin [Mass/Vol] 3.5 g/dL Normal 3.4-5.0 [facility] Comment on above: Performed By: #### P 14 #### [facility] [address] [place], [place] [address] Anion gap [Moles/Vol] 11 mmol/L Normal 8-16 [facility] Comment on above: Performed By: #### P 14 #### [facility] [address] [place], [place] [address] Calcium [Mass/Vol] 8.6 mg/dL Normal 8.5-10.1 [facility] Comment on above: Performed By: #### P 14 #### [facility] [address] [place], [place] [address] CO2 [Moles/Vol] 23 mmol/L Normal 21-32 [facility] Comment on above: Performed By: #### P 14 #### [facility] [address] [place], [place] [address] Glucose [Mass/Vol] 104 mg/dL High 70-99 [facility] Comment on above: Performed By: #### P 14 #### [facility] [address] [place], [place] [address] Urea nitrogen [Mass/Vol] 9 mg/dL Normal 7-18 [facility] Comment on above: Performed By: #### P 14 #### [facility] [address] [place] [address] Chloride [Moles/Vol] 107 mmol/L Normal 98-107 [facility] Comment on above: Performed By: #### P 14 #### [facility] [address] [place] [address] Potassium [Moles/Vol] 3.9 mmol/L Normal 3.5-5.1 [facility] Comment on above: Performed By: #### P 14 #### [facility] [address] [place] [address] Sodium [Moles/Vol] 137 mmol/L Normal 136-145 [facility] Comment on above: Performed By: #### P 14 #### [facility] [address] [place] [address] Hemogram/Diffon 12-28-2019 Abs Immature Grans 0.08 thou/cmm High 0.00-0.05 [facility] Comment on above: Performed By: #### E DLAG #### [facility] [address] [place] [address] Abs Neut (ANC) 4.77 thou/cmm Normal 1.56-6.13 [facility] Comment on above: Performed By: #### E DLAG #### [facility] [address] [place] [address] Abs. Baso 0.05 thou/cmm Normal 0.01-0.08 [facility] Comment on above: Performed By: #### E DLAG #### [facility] [address] [place] [address] Abs. Charlton 0.52 thou/cmm Normal 0.27-0.70 [facility] Comment on above: Performed By: #### E DLAG #### [facility] [address] [place] [address] Basophils/100 WBC (Bld) 0.6 % Normal [facility] Comment on above: Performed By: #### E DLAG #### [place] [address] Eosinophils (Bld) [#/Vol] 0.20 thou/cmm Normal 0.00-0.31 [facility] Comment on above: Performed By: #### E DLAG #### [facility] [address] [place] [address] Eosinophils/100 WBC (Bld) 2.6 % Normal [facility] Comment on above: Performed By: #### E DLAG #### [facility] [address] [place] [address] Erythrocyte distribution width (RBC) [Ratio] 12.9 % Normal 11.7-14.4 [facility] Comment on above: Performed By: #### E DLAG #### [facility] [address] [place] [address] Hematocrit (Bld) [Volume fraction] 40.9 % Normal 34.1-44.9 [facility] Comment on above: Performed By: #### E DLAG #### [facility] [address] [place] [address] Hemoglobin (Bld) [Mass/Vol] 13.4 g/dL Normal 11.2-15.7 [facility] Comment on above: Performed By: #### E DLAG #### [facility] [address] [place] [address] Immature Grans 1.00 % Normal [facility] Comment on above: Performed By: #### E DLAG #### [place] [address] Lymphocytes (Bld) [#/Vol] 2.19 thou/cmm Normal 1.18-3.74 [facility] Comment on above: Performed By: #### E DLAG #### [facility] [address] [place] [address] Lymphocytes/100 WBC (Bld) 28.0 % Normal [facility] Comment on above: Performed By: #### E DLAG #### [facility] [address] [place] [address] MCH (RBC) [Entitic mass] 30.2 pg Normal 25.6-32.2 [facility] Comment on above: Performed By: #### E DLAG #### [facility] [address] [place], [place] [address] MCHC (RBC) [Mass/Vol] 32.8 % Normal 31.6-34.8 [facility] Comment on above: Performed By: #### E DLAG #### [facility] [address] [place], [place] [address] MCV (RBC) [Entitic vol] 92.1 fL Normal 79.4-94.8 [facility] Comment on above: Performed By: #### E DLAG #### [facility] [address] [place] [address] Monocytes/100 WBC (Bld) 6.7 % Normal [facility] Comment on above: Performed By: #### E DLAG #### [facility] [address] [place] [address] Platelet mean volume (Bld) [Entitic vol] 9.2 fL Low 9.4-12.3 [facility] Comment on above: Performed By: #### E DLAG #### [facility] [address] [place] [address] Platelets (Bld) [#/Vol] 306 thou/cmm Normal 182-369 [facility] Comment on above: Performed By: #### E DLAG #### [facility] [address] [place] [address] RBC (Bld) [#/Vol] 4.44 mil/cmm Normal 3.93-5.22 [facility] Comment on above: Performed By: #### E DLAG #### [facility] [address] [place] [address] RDW SD 43.7 fl Normal 36.4-46.3 [facility] Comment on above: Performed By: #### E DLAG #### [facility] [address] [place], [place] [address] Seg Neutrophil 61.1 % Normal [facility] Comment on above: Performed By: #### E DLAG #### [facility] [address] [place] [address] WBC (Bld) [#/Vol] 7.81 thou/cmm Normal 3.98-10.04 [facility] Comment on above: Performed By: #### E DLAG #### [place] [address] Lactic Acidon 12-28-2019 Lactate [Moles/Vol] 1.7 mmol/L Normal 0.5-2.2 [facility] Comment on above: Performed By: #### E DLAG #### [place] [address] MDRD GFRon 12-28-2019 GFR/1.73 sq M predicted among non-blacks MDRD (S/P/Bld) [Vol rate/Area] mL/min/{1.73_m2} Normal >60mL/min/ 1.73m2 [facility] Comment on above: Result Comment: If t he patient is , multiply the result by 1.210. Performed By: #### P 14 #### [place] [address] Urine HCG, Qual.on 0 Beta HCG ( test) Ql (U) Negative Normal Negative [facility] Comment on above: Performed By: #### P 14 #### [place] [address] Specific [place], Ur 1.017 Normal 1.005-1 .03 0 [facility] Comment on above: Performed By: #### P 14 #### [place] [address] Urine Drug Screenon 12-24-19 20 Urine Amphetamine Non-detected Normal Non-Detect ed [facility] Comment on above: Performed By: #### E DLAG #### [address] [address] Urine Benzodiazepine Non-detected Normal Non-Det ect ed [facility] Comment on above: Performed By: #### E DLAG #### [place] [address] Urine Opiate see below Normal Non-Detect ed [facility] Comment on above: Result Comment: Dete cted (unconfirmed) Performed By: #### E DLAG #### [facility] [address] [place] [address] Urine PCP Non-detected Normal Non-Detect ed [facility] Comment on above: Performed By: #### E DLAG #### [place] [address] Urine THC see below Normal Non-Detect ed [facility] Comment on above: Result Comment: Dete cted (unconfirmed) Urine Drug Cutoff Levels Urine Amphetamine 500 ng/mL Urine Barbiturate 200 ng/mL Urine Benzodiazepines 200 ng/mL Urine Cocaine 150 ng/mL Urine Phencyclidine (PCP) 25 ng/mL Urine Opiates 300 ng/mL Urine THC 50 ng/mL The results of these analytes are unconfirmed and reported qualitatively as detected or non-detected relative to the cutoff value. Detected results indicate the sample is likely to contain the analyte. Non-detected results indicate that either the sample does not contain the analyte or it is present in concentrations below the cutoff level. This drug screen should be used for medical diagnostic purposes only. Performed By: #### E DLAG #### [place] [address] Urine Barbiturates Non-detected Normal Non-Detec t ed [facility] Comment on above: Performed By: #### E DLAG #### [place] [address] Urine Cocaine Metab Non-detected Normal Non-Dete ct ed [facility] Comment on above: Performed By: #### E DLAG #### [place] [address] Basic Panelon 12-23-2019 Creatinine [Mass/Vol] 0.46 mg/dL Low 0.51-0.95 [facility] Comment on above: Result Comment: Use of this assay is not recommended for patients undergoing treatment with phenindione, due to the potential for falsely depressed results. Performed By: #### E DLAG #### [place] [address] Anion gap [Moles/Vol] 7 mmol/L Low 8-16 [facility] Comment on above: Performed By: #### E DLAG #### [facility] [address] [place], [place] [address] CO2 [Moles/Vol] 26 mmol/L Normal 21-32 [facility] Comment on above: Performed By: #### E DLAG #### [facility] [address] [place], [place] [address] Glucose [Mass/Vol] 109 mg/dL High 70-99 [facility] Comment on above: Performed By: #### E DLAG #### [facility] [address] [place], [place] [address] Urea nitrogen [Mass/Vol] 5 mg/dL Low 7-18 [facility] Comment on above: Performed By: #### E DLAG #### [facility] [address] [place], [place] [address] Calcium [Mass/Vol] 8.7 mg/dL Normal 8.5-10.1 [facility] Comment on above: Performed By: #### E DLAG #### [place] [address] Chloride [Moles/Vol] 107 mmol/L Normal 98-107 [facility] Comment on above: Performed By: #### E DLAG #### [address] [address] Potassium [Moles/Vol] 4.1 mmol/L Normal 3.5-5.1 [facility] Comment on above: Performed By: #### E DLAG #### [address] [address] Sodium [Moles/Vol] 136 mmol/L Normal 136-145 [facility] Comment on above: Performed By: #### E DLAG #### [address] [address] Hemogramon 12-23-2019 Erythrocyte distribution width (RBC) [Ratio] 12.5 % Normal 11.7-14.4 [facility] Comment on above: Performed By: #### E DLAG #### [address] [address] Hematocrit (Bld) [Volume fraction] 40.9 % Normal 34.1-44.9 [facility] Comment on above: Performed By: #### E DLAG #### [facility] [address] [place] [address] Hemoglobin (Bld) [Mass/Vol] 13.1 g/dL Normal 11.2-15.7 [facility] Comment on above: Performed By: #### E DLAG #### [facility] [address] [place] [address] MCH (RBC) [Entitic mass] 29.2 pg Normal 25.6-32.2 [facility] Comment on above: Performed By: #### E DLAG #### [facility] [address] [place] [address] MCHC (RBC) [Mass/Vol] 32.0 % Normal 31.6-34.8 [facility] Comment on above: Performed By: #### E DLAG #### [facility] [address] [place] [address] MCV (RBC) [Entitic vol] 91.3 fL Normal 79.4-94.8 [facility] Comment on above: Performed By: #### E DLAG #### [facility] [address] [place] [address] Platelet mean volume (Bld) [Entitic vol] 9.2 fL Low 9.4-12.3 [facility] Comment on above: Performed By: #### E DLAG #### [facility] [address] [place] [address] Platelets (Bld) [#/Vol] 231 thou/cmm Normal 182-369 [facility] Comment on above: Performed By: #### E DLAG #### [facility] [address] [place] [address] RBC (Bld) [#/Vol] 4.48 mil/cmm Normal 3.93-5.22 [facility] Comment on above: Performed By: #### E DLAG #### [facility] [address] [place] [address] RDW SD 41.6 fl Normal 36.4-46.3 [facility] Comment on above: Performed By: #### E DLAG #### [facility] [address] [place] [address] WBC (Bld) [#/Vol] 5.84 thou/cmm Normal 3.98-10.04 [facility] Comment on above: Performed By: #### E DLAG #### [place] [address] MDRD GFRon 12-23-2019 GFR/1.73 sq M predicted among non-blacks MDRD (S/P/Bld) [Vol rate/Area] mL/min/{1.73_m2} Normal >60mL/min/ 1.73m2 [facility] Comment on above: Result Comment: If t he patient is , multiply the result by 1.210. Performed By: #### L IP #### [place] [address] Magnesium Bloodon 12-23-2019 Magnesium [Mass/Vol] 2.1 mg/dL Normal 1.6-2.6 [facility] Comment on above: Performed By: #### E DLAG #### [place] [address] Phosphorus Bloodon 0 Phosphate [Mass/Vol] 3.2 mg/dL Normal 2.5-4.9 [facility] Comment on above: Performed By: #### E DLAG #### [place] [address] Basic Panelon 12-22-2019 Creatinine [Mass/Vol] 0.45 mg/dL Low 0.51-0.95 [facility] Comment on above: Result Comment: Use of this assay is not recommended for patients undergoing treatment with phenindione, due to the potential for falsely depressed results. Performed By: #### L IP #### [place] [address] Anion gap [Moles/Vol] 9 mmol/L Normal 8-16 [facility] Comment on above: Performed By: #### L IP #### [place] [address] CO2 [Moles/Vol] 23 mmol/L Normal 21-32 [facility] Comment on above: Performed By: #### L IP #### [facility] [address] [place], [place] [address] Urea nitrogen [Mass/Vol] 7 mg/dL Normal 7-18 [facility] Comment on above: Performed By: #### L IP #### [facility] [address] [place], [place] [address] Calcium [Mass/Vol] 8.3 mg/dL Low 8.5-10.1 [facility] Comment on above: Performed By: #### L IP #### [facility] [address] [place], [place] [address] Glucose [Mass/Vol] 109 mg/dL High 70-99 [facility] Comment on above: Performed By: #### L IP #### [facility] [address] [place] [address] Chloride [Moles/Vol] 107 mmol/L Normal 98-107 [facility] Comment on above: Performed By: #### L IP #### [facility] [address] [place] [address] Potassium [Moles/Vol] 3.8 mmol/L Normal 3.5-5.1 [facility] Comment on above: Performed By: #### L IP #### [facility] [address] [place] [address] Sodium [Moles/Vol] 135 mmol/L Low 136-145 [facility] Comment on above: Performed By: #### L IP #### [facility] [address] [place], [place] [address] Hemogramon 12-22-2019 Erythrocyte distribution width (RBC) [Ratio] 12.7 % Normal 11.7-14.4 [facility] Comment on above: Performed By: #### L IP #### [facility] [address] [place], [place] [address] Hematocrit (Bld) [Volume fraction] 41.6 % Normal 34.1-44.9 [facility] Comment on above: Performed By: #### L IP #### [address] [address] Hemoglobin (Bld) [Mass/Vol] 13.2 g/dL Normal 11.2-15.7 [facility] Comment on above: Performed By: #### L IP #### [facility] [address] [place] [address] MCH (RBC) [Entitic mass] 29.3 pg Normal 25.6-32.2 [facility] Comment on above: Performed By: #### L IP #### [facility] [address] [place] [address] MCHC (RBC) [Mass/Vol] 31.7 % Normal 31.6-34.8 [facility] Comment on above: Performed By: #### L IP #### [facility] [address] [place] [address] MCV (RBC) [Entitic vol] 92.2 fL Normal 79.4-94.8 [facility] Comment on above: Performed By: #### L IP #### [facility] [address] [place] [address] Platelet mean volume (Bld) [Entitic vol] 9.1 fL Low 9.4-12.3 [facility] Comment on above: Performed By: #### L IP #### [facility] [address] [place] [address] Platelets (Bld) [#/Vol] 212 thou/cmm Normal 182-369 [facility] Comment on above: Performed By: #### L IP #### [facility] [address] [place] [address] RBC (Bld) [#/Vol] 4.51 mil/cmm Normal 3.93-5.22 [facility] Comment on above: Performed By: #### L IP #### [facility] [address] [place] [address] RDW SD 43.2 fl Normal 36.4-46.3 [facility] Comment on above: Performed By: #### L IP #### [facility] [address] [place] [address] WBC (Bld) [#/Vol] 6.28 thou/cmm Normal 3.98-10.04 [facility] Comment on above: Performed By: #### L IP #### [facility] [address] [place], [place] [address] Magnesium Bloodon 12-22-2019 Magnesium [Mass/Vol] 2.0 mg/dL Normal 1.6-2.6 [facility] Comment on above: Performed By: #### E DLAG #### [facility] [address] [place] [address] Phosphorus Bloodon 0 Phosphate [Mass/Vol] 3.3 mg/dL Normal 2.5-4.9 [facility] Comment on above: Performed By: #### E DLAG #### [facility] [address] [place] [address] XR ABDOMEN 1V SUPINEon 12-21 XR ABDOMEN 1V SUPINE * * *Final Report* * * DATE OF EXAM: Dec 22 2019 4:09AM AKX [id number] - XR ABDOMEN 1V SUPINE / PROCEDURE REASON: Abd pain, unspecified * * * * Physician Interpretation * * * * EXAM TITLE: XR ABDOMEN 1V SUPINE DATE: December 22, 2019 at 4:05 AM COMPARISON: CT scan of the abdomen and pelvis from December 19, 2019 CLINICAL INDICATION/HISTORY: The patient is a 34-year-old female with abdominal pain who was administered oral Gastrografin 12 hours prior to the examination. TECHNIQUE: A single view of the abdomen is presented. FINDINGS: No abnormality dilated bowel loops are noted. Oral Gastrografin is in the collapsed colon all the way down to the rectal vault. There is no abnormal calcifications. The bony structures appear intact. IMPRESSION: There is no evidence of any significant mechanical obstruction and the bowel gas pattern is within normal limits. Automatic Door Mechanic: PSCB Transcribe Date/Time: Dec 22 2019 7:45A Dictated by : JERAD PASTRANA MD This examination was interpreted and the report reviewed and electronically signed by: JERAD PASTRANA MD on Dec 22 2019 7:46AM EST Normal [facility] Basic Panelon 12-21-2019 Urea nitrogen [Mass/Vol] 7 mg/dL Normal 7-18 [facility] Comment on above: Performed By: #### L IP #### [facility] [address] [place], [place] [address] Creatinine [Mass/Vol] 0.48 mg/dL Low 0.51-0.95 [facility] Comment on above: Result Comment: Use of this assay is not recommended for patients undergoing treatment with phenindione, due to the potential for falsely depressed results. Performed By: #### L IP #### [facility] [address] [place], [place] [address] Glucose [Mass/Vol] 122 mg/dL High 70-99 [facility] Comment on above: Performed By: #### L IP #### [facility] [address] [place], [place] [address] Anion gap [Moles/Vol] 11 mmol/L Normal 8-16 [facility] Comment on above: Performed By: #### L IP #### [address] [address] Calcium [Mass/Vol] 8.6 mg/dL Normal 8.5-10.1 [facility] Comment on above: Performed By: #### L IP #### [facility] [address] [place], [place] [address] CO2 [Moles/Vol] 24 mmol/L Normal 21-32 [facility] Comment on above: Performed By: #### L IP #### [address] [address] Chloride [Moles/Vol] 105 mmol/L Normal 98-107 [facility] Comment on above: Performed By: #### L IP #### [address] [address] Potassium [Moles/Vol] 3.2 mmol/L Low 3.5-5.1 [facility] Comment on above: Performed By: #### L IP #### [address] [address] Sodium [Moles/Vol] 137 mmol/L Normal 136-145 [facility] Comment on above: Performed By: #### L IP #### [place] [address] Hemogramon 12-21-2019 Erythrocyte distribution width (RBC) [Ratio] 13.0 % Normal 11.7-14.4 [facility] Comment on above: Performed By: #### L IP #### [facility] [address] [place] [address] Hematocrit (Bld) [Volume fraction] 42.6 % Normal 34.1-44.9 [facility] Comment on above: Performed By: #### L IP #### [facility] [address] [place] [address] Hemoglobin (Bld) [Mass/Vol] 13.9 g/dL Normal 11.2-15.7 [facility] Comment on above: Performed By: #### L IP #### [facility] [address] [place] [address] MCH (RBC) [Entitic mass] 29.8 pg Normal 25.6-32.2 [facility] Comment on above: Performed By: #### L IP #### [place] [address] MCHC (RBC) [Mass/Vol] 32.6 % Normal 31.6-34.8 [facility] Comment on above: Performed By: #### L IP #### [place] [address] MCV (RBC) [Entitic vol] 91.2 fL Normal 79.4-94.8 [facility] Comment on above: Performed By: #### L IP #### [place] [address] Platelet mean volume (Bld) [Entitic vol] 9.5 fL Normal 9.4-12.3 [facility] Comment on above: Performed By: #### L IP #### [facility] [address] [place] [address] Platelets (Bld) [#/Vol] 251 thou/cmm Normal 182-369 [facility] Comment on above: Performed By: #### L IP #### [place] [address] RBC (Bld) [#/Vol] 4.67 mil/cmm Normal 3.93-5.22 [facility] Comment on above: Performed By: #### L IP #### [facility] [address] [place], [place] [address] RDW SD 43.4 fl Normal 36.4-46.3 [facility] Comment on above: Performed By: #### L IP #### [facility] [address] [place], [place] [address] WBC (Bld) [#/Vol] 6.79 thou/cmm Normal 3.98-10.04 [facility] Comment on above: Performed By: #### L IP #### [facility] [address] [place], [place] [address] Magnesium Bloodon 12-21-2019 Magnesium [Mass/Vol] 1.9 mg/dL Normal 1.6-2.6 [facility] Comment on above: Performed By: #### L IP #### [facility] [address] [place] [address] Phosphorus Bloodon 0 Phosphate [Mass/Vol] 3.4 mg/dL Normal 2.5-4.9 [facility] Comment on above: Performed By: #### L IP #### [facility] [address] [place] [address] Comprehensive Panelon 2019 ALP [Catalytic activity/Vol] 54 U/L Normal 45-117 [facility] Comment on above: Performed By: #### P 14 #### [facility] [address] [place], [place] [address] Bilirubin [Mass/Vol] 0.1 mg/dL Low 0.2-1.0 [facility] Comment on above: Result Comment: Use of this assay is not recommended for patients undergoing treatment with eltrombopag due to the potential for falsely elevated results. Performed By: #### P 14 #### [facility] [address] [place], [place] [address] Creatinine [Mass/Vol] 0.39 mg/dL Low 0.51-0.95 [facility] Comment on above: Result Comment: Use of this assay is not recommended for patients undergoing treatment with phenindione, due to the potential for falsely depressed results. Performed By: #### P 14 #### [facility] [address] [place], [place] [address] Protein [Mass/Vol] 7.4 g/dL Normal 6.4-8.2 [facility] Comment on above: Performed By: #### P 14 #### [facility] [address] [place], [place] [address] ALT [Catalytic activity/Vol] 46 U/L Normal 12-78 [facility] Comment on above: Performed By: #### P 14 #### [facility] [address] [place], [place] [address] AST [Catalytic activity/Vol] 50 U/L High 15-37 [facility] Comment on above: Performed By: #### P 14 #### [facility] [address] [place], [place] [address] Albumin [Mass/Vol] 3.5 g/dL Normal 3.4-5.0 [facility] Comment on above: Performed By: #### P 14 #### [facility] [address] [place], [place] [address] Anion gap [Moles/Vol] 9 mmol/L Normal 8-16 [facility] Comment on above: Performed By: #### P 14 #### [facility] [address] [place], [place] [address] CO2 [Moles/Vol] 25 mmol/L Normal 21-32 [facility] Comment on above: Performed By: #### P 14 #### [facility] [address] [place], [place] [address] Urea nitrogen [Mass/Vol] 5 mg/dL Low 7-18 [facility] Comment on above: Performed By: #### P 14 #### [facility] [address] [place], [place] [address] Calcium [Mass/Vol] 8.7 mg/dL Normal 8.5-10.1 [facility] Comment on above: Performed By: #### P 14 #### [facility] [address] [place], [place] [address] Glucose [Mass/Vol] 103 mg/dL High 70-99 [facility] Comment on above: Performed By: #### P 14 #### [facility] [address] [place] [address] Chloride [Moles/Vol] 108 mmol/L High 98-107 [facility] Comment on above: Performed By: #### P 14 #### [facility] [address] [place] [address] Potassium [Moles/Vol] 3.8 mmol/L Normal 3.5-5.1 [facility] Comment on above: Performed By: #### P 14 #### [facility] [address] [place] [address] Sodium [Moles/Vol] 138 mmol/L Normal 136-145 [facility] Comment on above: Performed By: #### P 14 #### [facility] [address] [place] [address] Fecal Occult Bloodon 020 Fecal Occult Blood Positive Abnormal NEGATIVE [facility] Comment on above: Performed By: #### L IP #### [place] [address] Hemogram/Diffon 12-20-2019 Abs Immature Grans 0.02 thou/cmm Normal 0.00-0.05 [facility] Comment on above: Performed By: #### C BCD1 #### [facility] [address] [place] [address] Abs Neut (ANC) 3.40 thou/cmm Normal 1.56-6.13 [facility] Comment on above: Performed By: #### C BCD1 #### [place] [address] Abs. Baso 0.03 thou/cmm Normal 0.01-0.08 [facility] Comment on above: Performed By: #### C BCD1 #### [place] [address] Abs. Charlton 0.59 thou/cmm Normal 0.27-0.70 [facility] Comment on above: Performed By: #### C BCD1 #### [place] [address] Basophils/100 WBC (Bld) 0.5 % Normal [facility] Comment on above: Performed By: #### C BCD1 #### [facility] [address] [place], [place] [address] Eosinophils (Bld) [#/Vol] 0.21 thou/cmm Normal 0.00-0.31 [facility] Comment on above: Performed By: #### C BCD1 #### [facility] [address] [place], [place] [address] Eosinophils/100 WBC (Bld) 3.4 % Normal [facility] Comment on above: Performed By: #### C BCD1 #### [facility] [address] [place] [address] Erythrocyte distribution width (RBC) [Ratio] 12.9 % Normal 11.7-14.4 [facility] Comment on above: Performed By: #### C BCD1 #### [facility] [address] [place] [address] Hematocrit (Bld) [Volume fraction] 43.7 % Normal 34.1-44.9 [facility] Comment on above: Performed By: #### C BCD1 #### [facility] [address] [place], [place] [address] Hemoglobin (Bld) [Mass/Vol] 14.5 g/dL Normal 11.2-15.7 [facility] Comment on above: Performed By: #### C BCD1 #### [facility] [address] [place] [address] Immature Grans 0.30 % Normal [facility] Comment on above: Performed By: #### C BCD1 #### [facility] [address] [place], [place] [address] Lymphocytes (Bld) [#/Vol] 1.89 thou/cmm Normal 1.18-3.74 [facility] Comment on above: Performed By: #### C BCD1 #### [facility] [address] [place], [place] [address] Lymphocytes/100 WBC (Bld) 30.8 % Normal [facility] Comment on above: Performed By: #### C BCD1 #### [place] [address] MCH (RBC) [Entitic mass] 30.1 pg Normal 25.6-32.2 [facility] Comment on above: Performed By: #### C BCD1 #### [facility] [address] [place] [address] MCHC (RBC) [Mass/Vol] 33.2 % Normal 31.6-34.8 [facility] Comment on above: Performed By: #### C BCD1 #### [facility] [address] [place] [address] MCV (RBC) [Entitic vol] 90.9 fL Normal 79.4-94.8 [facility] Comment on above: Performed By: #### C BCD1 #### [facility] [address] [place] [address] Monocytes/100 WBC (Bld) 9.6 % Normal [facility] Comment on above: Performed By: #### C BCD1 #### [facility] [address] [place] [address] Platelet mean volume (Bld) [Entitic vol] 9.2 fL Low 9.4-12.3 [facility] Comment on above: Performed By: #### C BCD1 #### [facility] [address] [place] [address] Platelets (Bld) [#/Vol] 241 thou/cmm Normal 182-369 [facility] Comment on above: Performed By: #### C BCD1 #### [facility] [address] [place] [address] RBC (Bld) [#/Vol] 4.81 mil/cmm Normal 3.93-5.22 [facility] Comment on above: Performed By: #### C BCD1 #### [facility] [address] [place] [address] RDW SD 43.2 fl Normal 36.4-46.3 [facility] Comment on above: Performed By: #### C BCD1 #### [facility] [address] [place] [address] Seg Neutrophil 55.4 % Normal [facility] Comment on above: Performed By: #### C BCD1 #### [facility] [address] [place] [address] WBC (Bld) [#/Vol] 6.14 thou/cmm Normal 3.98-10.04 [facility] Comment on above: Performed By: #### C BCD1 #### [facility] [address] [place] [address] Lactic Acidon 12-20-2019 Lactate [Moles/Vol] 1.7 mmol/L Normal 0.4-2.0 [facility] Comment on above: Performed By: #### L AC #### [place] [address] Lipase Bloodon 12-20-2019 Lipase Blood 82 U/L Normal 73-393 [facility] Comment on above: Performed By: #### L IP #### [place] [address] Urinalysis Routineon 020 Bacteria LM.HPF (Urine sed) [#/Area] FEW Normal None [facility] Comment on above: Performed By: #### L IP #### [place] [address] RBC LM.HPF (Urine sed) [#/Area] 9.3 /[HPF] High 0.0-5.0 [facility] Comment on above: Performed By: #### L IP #### [place] [address] Ep Cells Urine 13.4 /hpf High 0.0-5.0 [facility] Comment on above: Performed By: #### L IP #### [place] [address] Hyaline Cast 0.7 /lpf Normal 0.0-1.0 [facility] Comment on above: Performed By: #### L IP #### [facility] [address] [place] [address] WBC LM.HPF (Urine sed) [#/Area] 5.6 /[HPF] High 0.0-5.0 [facility] Comment on above: Performed By: #### L IP #### [facility] [address] [place] [address] Appearance (U) CLOUDY Normal [facility] Comment on above: Performed By: #### L IP #### [facility] [address] [place] [address] Bilirubin (U) [Mass/Vol] Negative Normal Negative [facility] Comment on above: Performed By: #### L IP #### [facility] [address] [place] [address] Color (U) YELLOW Normal [facility] Comment on above: Performed By: #### L IP #### [facility] [address] [place] [address] Glucose Ql (U) Negative Normal Negative [place] [facility] Comment on above: Performed By: #### L IP #### [facility] [address] [place] [address] Hemoglobin,Urine Negative Normal Negative [facility] Comment on above: Performed By: #### L IP #### [facility] [address] [place] [address] Ketone Urine Negative Normal Negative [facility] Comment on above: Performed By: #### L IP #### [facility] [address] [place] [address] Leukocytes Esterase Negative Normal Negative [facility] Comment on above: Performed By: #### L IP #### [facility] [address] [place] [address] Nitrites Urine Negative Normal Negative [facility] Comment on above: Performed By: #### L IP #### [facility] [address] [place] [address] pH (U) 6.0 [pH] Normal 5.0-8.0 [facility] [employer] [facility] Comment on above: Performed By: #### L IP #### [facility] [address] [place] [address] Protein (U) [Mass/Vol] TRACE Abnormal Negative [facility] [employer] [facility] Comment on above: Performed By: #### L IP #### [facility] [address] [place] [address] Specific [place], Ur 1.020 Normal 1.005-1 .03 0 [facility] Comment on above: Performed By: #### L IP #### [facility] [address] [place], [place] [address] Urobilinogen,Ur 0.2 EU/dL Normal 0.2-1.0 [facility] Comment on above: Performed By: #### L IP #### [facility] [address] [place], [place] [address] Urine HCG, Qual.on 0 Beta HCG ( test) Ql (U) Negative Normal Negative [facility] Comment on above: Performed By: #### L IP #### [facility] [address] [place], [place] [address] Specific [place], Ur 1.019 Normal 1.005-1 .03 0 [facility] Comment on above: Performed By: #### L IP #### [facility] [address] [place], [place] [address] CT ABD/PEL W IVCONon 020 CT ABD/PEL W IVCON * * *Final Report* * * DATE OF EXAM: Dec 19 2019 5:02PM [facility] 0530 - CT ABD/PEL W IVCON / PROCEDURE REASON: Hernia, complicated * * * * Physician Interpretation * * * * EXAMINATION: CT ABDOMEN AND PELVIS WITH IV CONTRAST CLINICAL HISTORY: Abdominal pain TECHNIQUE: CT of the abdomen and pelvis was performed using standard technique, scanning from just above the dome of the diaphragm to the symphysis pubis. MQ: CTAP_3 Contrast: IV: 150 ml of Omnipaque 300 CT Radiation dose: Integrated Dose-length product (DLP) for this visit = 1274 mGy*cm. CT Dose Reduction Employed: Automated exposure control(AEC) and iterative recon COMPARISON: CT abdomen pelvis 07/10/2019 RESULT: Liver: No mass. Hepatic steatosis. Biliary: No bile duct dilation. Gallbladder is absent. Spleen: No mass. No splenomegaly. Pancreas: No mass or duct dilation. Adrenals: No mass. Kidneys: A 1.4 cm hypodense lesion in the right kidney is stable in size with slightly higher than simple fluid density. Subcentimeter hypodense lesion in the left kidney is not well evaluated , probably representing a cyst. No solid mass or hydronephrosis. GI tract: Postsurgical changes from small bowel anastomosis in the left abdomen. There is patulous dilatation of the anastomosis, unchanged. No evidence of bowel obstruction. No wall thickening. No significant diverticulosis. The appendix is not well seen. Lymph nodes: No abdominal or pelvic lymphadenopathy. Mesentery/Peritoneum: No ascites or mass. Retroperitoneum: No mass. Vasculature: The celiac axis and SMA are patent. The portal vein and branches, splenic vein, SMV, and hepatic veins are patent. No abdominal aortic or iliac artery aneurysm. Pelvis: No mass, ascites or fluid collection. Bones/Soft Tissues: There is a right parasagittal ventral hernia in the lower abdomen containing fat and a short segment of nondilated small bowel, new from 07/10/2019. Stable sclerotic lesion in the T9 vertebral body, likely representing an bone island. Lower thorax: Unremarkable. IMPRESSION: Right parasagittal ventral hernia containing a short segment of small bowel. No evidence of bowel obstruction. A 1.4 cm right renal lesion has density slightly higher than simple fluid. Nonemergent renal ultrasound may be considered for further evaluation. Automatic Door Mechanic: HUMAIRA Transcribe Date/Time: Dec 19 2019 6:27P Dictated by : MALLY SIMPSON MD This examination was interpreted and the report reviewed and electronically signed by: MALLY SIMPSON MD on Dec 19 2019 6:41PM EST Normal [facility] Comprehensive Panelon 2019 ALP [Catalytic activity/Vol] 55 U/L Normal 45-117 [facility] Comment on above: Performed By: #### P 14 #### [address] [address] Bilirubin [Mass/Vol] 0.2 mg/dL Normal 0.2-1.0 [facility] Comment on above: Result Comment: Use of this assay is not recommended for patients undergoing treatment with eltrombopag due to the potential for falsely elevated results. Performed By: #### P 14 #### [address] [address] Protein [Mass/Vol] 7.6 g/dL Normal 6.4-8.2 [facility] Comment on above: Performed By: #### P 14 #### [address] [address] Creatinine [Mass/Vol] 0.50 mg/dL Low 0.51-0.95 [facility] Comment on above: Result Comment: Use of this assay is not recommended for patients undergoing treatment with phenindione, due to the potential for falsely depressed results. Performed By: #### P 14 #### [facility] [address] [place], [place] [address] ALT [Catalytic activity/Vol] 30 U/L Normal 12-78 [facility] Comment on above: Performed By: #### P 14 #### [facility] [address] [place], [place] [address] AST [Catalytic activity/Vol] 22 U/L Normal 15-37 [facility] Comment on above: Performed By: #### P 14 #### [facility] [address] [place], [place] [address] Albumin [Mass/Vol] 3.7 g/dL Normal 3.4-5.0 [facility] Comment on above: Performed By: #### P 14 #### [facility] [address] [place], [place] [address] Anion gap [Moles/Vol] 11 mmol/L Normal 8-16 [facility] Comment on above: Performed By: #### P 14 #### [facility] [address] [place], [place] [address] CO2 [Moles/Vol] 24 mmol/L Normal 21-32 [facility] Comment on above: Performed By: #### P 14 #### [facility] [address] [place], [place] [address] Glucose [Mass/Vol] 100 mg/dL High 70-99 [facility] Comment on above: Performed By: #### P 14 #### [facility] [address] [place], [place] [address] Calcium [Mass/Vol] 8.7 mg/dL Normal 8.5-10.1 [facility] Comment on above: Performed By: #### P 14 #### [facility] [address] [place], [place] [address] Chloride [Moles/Vol] 105 mmol/L Normal 98-107 [facility] Comment on above: Performed By: #### P 14 #### [facility] [address] [place], [place] [address] Potassium [Moles/Vol] 3.3 mmol/L Low 3.5-5.1 [facility] Comment on above: Performed By: #### P 14 #### [facility] [address] [place] [address] Sodium [Moles/Vol] 137 mmol/L Normal 136-145 [facility] Comment on above: Performed By: #### P 14 #### [facility] [address] [place] [address] Urea nitrogen [Mass/Vol] 7 mg/dL Normal 7-18 [facility] Comment on above: Performed By: #### P 14 #### [facility] [address] [place] [address] Hemogramon 12-19-2019 Erythrocyte distribution width (RBC) [Ratio] 13.0 % Normal 11.7-14.4 [facility] Comment on above: Performed By: #### C BC1 #### [facility] [address] [place] [address] Hematocrit (Bld) [Volume fraction] 43.4 % Normal 34.1-44.9 [facility] Comment on above: Performed By: #### C BC1 #### [facility] [address] [place] [address] Hemoglobin (Bld) [Mass/Vol] 14.1 g/dL Normal 11.2-15.7 [facility] Comment on above: Performed By: #### C BC1 #### [facility] [address] [place] [address] MCH (RBC) [Entitic mass] 29.7 pg Normal 25.6-32.2 [facility] Comment on above: Performed By: #### C BC1 #### [facility] [address] [place] [address] MCHC (RBC) [Mass/Vol] 32.5 % Normal 31.6-34.8 [facility] Comment on above: Performed By: #### C BC1 #### [facility] [address] [place] [address] MCV (RBC) [Entitic vol] 91.6 fL Normal 79.4-94.8 [facility] Comment on above: Performed By: #### C BC1 #### [facility] [address] [place] [address] Platelet mean volume (Bld) [Entitic vol] 9.3 fL Low 9.4-12.3 [facility] Comment on above: Performed By: #### C BC1 #### [facility] [address] [place] [address] Platelets (Bld) [#/Vol] 250 thou/cmm Normal 182-369 [facility] Comment on above: Performed By: #### C BC1 #### [place] [address] RBC (Bld) [#/Vol] 4.74 mil/cmm Normal 3.93-5.22 [facility] Comment on above: Performed By: #### C BC1 #### [place] [address] RDW SD 43.9 fl Normal 36.4-46.3 [facility] Comment on above: Performed By: #### C BC1 #### [place] [address] WBC (Bld) [#/Vol] 6.15 thou/cmm Normal 3.98-10.04 [facility] Comment on above: Performed By: #### C BC1 #### [place] [address] Lactic Acidon 12-19-2019 Lactate [Moles/Vol] 1.2 mmol/L Normal 0.5-2.2 [facility] Comment on above: Performed By: #### E DLAG #### [place] [address] Lipase Bloodon 12-19-2019 Lipase Blood 81 U/L Normal 73-393 [facility] Comment on above: Performed By: #### L IP #### [place] [address] MDRD GFRon 12-19-2019 GFR/1.73 sq M predicted among non-blacks MDRD (S/P/Bld) [Vol rate/Area] mL/min/{1.73_m2} Normal >60mL/min/ 1.73m2 [facility] Comment on above: Result Comment: If t he patient is , multiply the result by 1.210. Performed By: #### G FR #### [facility] [address] [place], [place] [address] Auto Diffon 01-17-2019 Basophils #/vol (Bld) 0.2 E3/mcL Normal 0.0-0.2 [facility] Comment on above: Order Comment: Order Added by Discern Expert. Performed By: #### 2 [id number] #### [employer] [address] [place] [address] Basophils/100 WBC (Bld) 2.0 % Normal 0.0-2.[address] [facility] Comment on above: Order Comment: Order Added by Discern Expert. Performed By: #### 2 [id number] #### [employer] [address] [place] [address] Eos Absolute 0.1 E3/mcL Normal 0.0-0.[address] [facility] Comment on above: Order Comment: Order Added by Discern Expert. Performed By: #### 2 [id number] #### [employer] [address] [place] [address] Eosinophils/100 WBC (Bld) 1.6 % Normal 0.0-11.[address] [facility] Comment on above: Order Comment: Order Added by Discern Expert. Performed By: #### 2 [id number] #### [employer] [address] [place] [address] Lymphocytes #/vol (Bld) 2.3 E3/mcL Normal 1.2-3.[address] [facility] Comment on above: Order Comment: Order Added by Discern Expert. Performed By: #### 2 [id number] #### [employer] [address] [place] [address] Lymphocytes/100 WBC (Bld) 27.4 % Normal 20.0-55.[address] [facility] Comment on above: Order Comment: Order Added by Discern Expert. Performed By: #### 2 [id number] #### [employer] [address] [place] [address] [place] Absolute 0.5 E3/mcL Normal 0.0-0.[address] [facility] Comment on above: Order Comment: Order Added by Discern Expert. Performed By: #### 2 [id number] #### [employer] [address] [place] [address] Monocytes/100 WBC (Bld) 5.4 % Normal 0.0-10.[address] [facility] Comment on above: Order Comment: Order Added by Discern Expert. Performed By: #### 2 [id number] #### JARED RemHemo [address] [place] [address] Neutro Absolute 5.4 E3/mcL Normal 1.4-6.[address] [facility] Comment on above: Order Comment: Order Added by Discern Expert. Performed By: #### 2 060813 #### JARED RemHemo [address] [place] [address] Neutro Auto 63.6 % Normal 37.0-75.[address] [facility] Comment on above: Order Comment: Order Added by Discern Expert. Performed By: #### 2 998522 #### JARED RemHemo [address] [place] [address] BMPon 01-17-2019 Anion gap molar conc 17 mmol/L Normal 10-20 [facility] Comment on above: Performed By: #### 2 607782 #### [facility] Datalink [address] [place] [address] 96128 Calcium mass conc 9.4 mg/dL Normal 8.6-10.3 [facility] Comment on above: Performed By: #### 2 792156 #### [facility] Datalink [address] [place] [address] 00083 Chloride molar conc 106 mmol/L Normal 98-107 [facility] Comment on above: Performed By: #### 2 122294 #### [facility] Datalink [address] [place] [address] 11780 CO2 molar conc 20.0 mmol/L Low 21.0-32.[address] [facility] Comment on above: Performed By: #### 2 900727 #### [employer] Datalink [address] [place] [address] Creatinine mass conc 0.5 mg/dL Normal 0.5-1.1 [facility] Comment on above: Performed By: #### 2 724943 #### [employer] D[employer] [address] [place] [address] 73177 Glucose mass conc 111 mg/dL High 70-99 [facility] Comment on above: Performed By: #### 2 894424 #### [employer] [address] [place] [address] 12496 Potassium molar conc 2.9 mmol/L Low 3.5-5.3 [facility] Comment on above: Performed By: #### 2 757425 #### [employer] [address] [place] [address] 51477 Sodium molar conc 140 mmol/L Normal 136-145 [facility] Comment on above: Performed By: #### 2 029199 #### [employer] [address] [place], [place] [address] Urea nitrogen mass conc 9 mg/dL Normal 6-[address] [facility] Comment on above: Performed By: #### 2 345240 #### [employer] [address] [place] [address] 68471 Urea nitrogen/Creatinine mass ratio 18.0 ratio Normal 5.4-30.[address] [facility] Comment on above: Performed By: #### 2 029155 #### [employer] [address] [place] [address] 66276 CBC w/ Auto Diffon 9 Erythrocyte distribution width Ratio (RBC) 13.2 % Normal 11.5-14.[address] [facility] Comment on above: Performed By: #### 2 584898 #### JARED RemHemo [address] [place] [address] 95681 Hematocrit Volume Fraction (Bld) 44.1 % Normal 36.0-48.[address] [facility] Comment on above: Performed By: #### 2 225475 #### J[employer] Rem[employer]emo [address] [place] [address] 95046 Hemoglobin mass conc (Bld) 14.8 g/dL Normal 12.0-16.[address] [facility] Comment on above: Performed By: #### 2 017624 #### JARED RemHemo [address] [place] [address] MCH Entitic mass (RBC) 31.1 pg High 27.0-31.[address] [facility] Comment on above: Performed By: #### 2 749179 #### JARED RemHemo [address] [place] [address] MCHC mass conc (RBC) 33.5 g/dL Normal 33.0-37.0 [facility] Comment on above: Performed By: #### 2 830031 #### JARED RemHemo [address] [place] [address] MCV Entitic volume (RBC) 92.7 fL Normal 78.0-100.[address] [facility] Comment on above: Performed By: #### 2 150074 #### JARED RemHemo [address] [place] [address] Platelet mean volume Entitic volume (Bld) 7.2 fL Low 7.4-11.[address] [facility] Comment on above: Performed By: #### 2 895249 #### JARED RemHemo [address] [place] [address] Platelets #/vol (Bld) 288 E3/mcL Normal 130-400 [facility] Comment on above: Performed By: #### 2 423783 #### JARED RemHemo [address] [place] [address] RBC #/vol (Bld) 4.76 E6/mcL Normal 3.90-5.40 [facility] Comment on above: Performed By: #### 2 931069 #### JARED RemHemo [address] [place] [address] WBC #/vol (Bld) 8.5 E3/mcL Normal 3.6-11.[address] [facility] Comment on above: Performed By: #### 2 530437 #### JARED RemHemo [address] [place] [address] CT Abdomen/Pelvis w/ Contras ton 01-17-2019 CT Abdomen/Pelvis w/ Contrast Exam Date/Time: 01/17/2019 17:16 EDT Reason for Exam: Abdominal Pain;Other (please specify) Report STUDY: CT Abdomen/Pelvis w/ Contrast; 01/17/2019 5:16 pm INDICATION: Abdominal pain. COMPARISON: 06/07/2013 ACCESSION NUMBER(S): [id number] ORDERING CLINICIAN: Rio Trevino TECHNIQUE: CT of the abdomen and pelvis was performed with IV contrast. 150 mL of Omnipaque was administered intravenously. Coronal and sagittal reformatted images were obtained. FINDINGS: ABDOMEN: LIVER: Hepatic steatosis. No focal hepatic lesion SPLEEN: No focal splenic lesions. PANCREAS: No focal pancreatic lesions. ADRENALS: Within normal limits. GALLBLADDER: Status post cholecystectomy. BILE DUCTS: No biliary ductal dilation KIDNEYS/URETERS: 1.2 cm hyperdense structure at the lower pole of the left kidney is indeterminate. Additional 1.1 cm hyperdense structure in the interpolar right kidney. Kidneys enhance symmetrically without hydroureteronephrosis. VESSELS: Aorta and IVC are normal in caliber. BOWEL: No bowel obstruction. Small hiatal hernia. PERITONEUM/RETROPERITONEUM/L YMPH NODES: No lymphadenopathy by CT size criteria. No ascites or free air. PELVIS: REPRODUCTIVE ORGANS: Tubal ligation clips/Essure devices are noted. Exam Date/Time: 01/17/2019 17:16 EDT Report BLADDER: Within normal limits. ABDOMINAL WALL: Postsurgical changes of ventral abdominal wall hernia repair. BONES: No aggressive osseous lesions. LOWER CHEST: Lung bases are clear. IMPRESSION: No acute process in the abdomen or pelvis. Bilateral indeterminate hyperdense renal lesions for which contrast enhanced MRI is recommended. Hepatic steatosis. FINAL REPORT Dictated: 01/17/2019 5:28 pm Sadiq Tatum MD Signed (Electronic Signature): 01/17/2019 5:28 pm Signed by: Sadiq Tatum MD Technologist: BALDEV, Normal [facility] Hep Func Panelon 01-17-2019 Albumin mass conc 4.4 g/dL Normal 3.4-5.0 [facility] Comment on above: Performed By: #### 2 113945 #### [employer] [address] [place] [address] Albumin/Globulin mass ratio 1.9 {ratio} Normal 1.1-1.[address] [facility] Comment on above: Performed By: #### 2 484538 #### [employer] [address] [place] [address] 47184 Alk Phos 52 Int._Unit/L Normal 33-[address] [facility] Comment on above: Performed By: #### 2 486736 #### [employer] [address] [place] [address] 84145 ALT enzyme act/vol 23 Int._Unit/L Normal 7-45 [facility] Comment on above: Performed By: #### 2 286478 #### [employer] [address] [place] [address] 95112 AST enzyme act/vol 14 Int._Unit/L Normal 9-39 [facility] Comment on above: Performed By: #### 2 677200 #### [facility] D[employer]ink [address] [place] [address] 03430 Bili Direct 0.07 mg/dL Normal 0.00-0.[address] [facility] Comment on above: Performed By: #### 2 098202 #### [facility] D[employer] [address] [place] [address] Bili Indirect 0.13 mg/dL Normal [facility] Comment on above: Result Comment: No e stablished ranges available for the indirect bilirubin Performed By: #### 2 056889 #### [facility] D[employer] [address] [place] [address] 46308 Bili Total 0.20 mg/dL Normal 0.00-1.[address] [facility] Comment on above: Performed By: #### 2 144038 #### [facility] D[employer] [address] [place] [address] 97968 Globulin mass conc (S) 2.0 g/dL Normal 2.0-4.[address] [facility] Comment on above: Performed By: #### 2 197979 #### [facility] D[employer] [address] [place] [address] 73487 Protein mass conc 6.7 g/dL Normal 6.4-8.2 [facility] Comment on above: Performed By: #### 2 359494 #### [facility] D[employer] [address] [place] [address] 85848 Lipase Levelon 01-17-2019 Lipase Lvl 19 Int._Unit/L Normal 9-[address] [facility] Comment on above: Performed By: #### 2 514183 #### [employer]ED D[employer] [facility] [place] [address] UA Completeon 01-17-2019 Color Nom (U) Yellow Normal Yellow [facility] Comment on above: Performed By: #### 8 [id number] #### JARED Urinalysis Automated Subsection [address] [place] [address] 43355 Glucose mass conc (U) Negative Normal Negative [facility] Comment on above: Performed By: #### 8 [id number] #### JARED Urinalysis Automated Subsection [facility] [place] [address] Ketones Ql (U) Negative Normal Negative [facility] Comment on above: Performed By: #### 8 [id number] #### JARED Urinalysis Automated Subsection [address] [place] [address] 50757 UA Blood Negative Normal Negative [facility] Comment on above: Performed By: #### 8 7075102 #### JARED Urinalysis Automated Subsection [address] [place] [address] 27518 UA Clarity Clear Normal Clear [facility] Comment on above: Performed By: #### 8 8510752 #### JARED Urinalysis Automated Subsection [address] [place] [address] 02588 UA Leuk Est Negative Normal Negative [facility] Comment on above: Performed By: #### 8 0445232 #### JARED Urinalysis Automated [employer]section [address] [place] [address] 09582 UA Nitrite Negative Normal Negative [facility] Comment on above: Performed By: #### 8 6530135 #### JARED Urinalysis Automated [employer]section [address] [place] [address] 43666 UA pH 6.0 Normal 4.6-8.[address] [facility] Comment on above: Performed By: #### 8 0760555 #### JARED Urinalysis Automated Subsection [address] [place] [address] 42358 UA Protein Negative Normal Negative [facility] Comment on above: Performed By: #### 8 0603661 #### JARED Urinalysis Automated Subsection [facility] [place] [address] UA Spec Grav 1.018 Normal 1.003-1.[address] [facility] Comment on above: Performed By: #### 8 3611267 #### JARED Urinalysis Automated Subsection [facility] [place] [address] UA Squam Epithelial 0-5 Normal 0-5 [facility] Comment on above: Performed By: #### 8 2328722 #### JARED Urinalysis Automated Subsection [facility] [place] [address] UA Urobilinogen Negative Normal [facility] Comment on above: Result Comment: Due to a manufacturing issue, low positive urobilinogen results may be fasely positive. Correlate with urine bilirubin and additional clinical/laboratory findings to assess the risk of hemolytic anemia or liver disease. If clinically indicated, repeat testing with an alternate method is available by contacting the laboratory within 24 hours. Performed By: #### 8 7155437 #### JARED Urinalysis Automated Subsection [facility] [place] [address] UA WBC 0-5 Normal 0-[address] [facility] Comment on above: Performed By: #### 8 [id number] #### JARED Urinalysis Automated Subsection [address] [place] [address] Urobilinogen Qn (U) Negative Normal Negative [facility] Comment on above: Performed By: #### 8 [id number] #### JARED Urinalysis Automated Subsection [address] [place], [place] [address] eGFRon 01-17-2019 GFR/1.73 sq M predicted among non-blacks MDRD vol rate/area (S/P/Bld) mL/min/{1.73_m2} Normal [facility] Comment on above: Order Comment: Order added by Discern Expert. Performed By: #### 1 [id number] #### [employer]ED [employer] [address] [place] [address] 62859 BMPon 06-06-2018 Anion gap 3 molar conc 10 mmol/L Normal - [facility] Comment on above: Performed By: #### L 500.19816, L500.30401, L500.03348, L500.01490, L500.74318 ####[facility] [id number] [place], [place] [address]Mk# [phone] Calcium mass conc 8.6 mg/dL Normal 8.5-10.1 [facility] Comment on above: Performed By: #### L 500.85986, L500.85092, L500.09980, L500.13580, L500.31410 ####[facility] [id number] [place], [place] [address]Xq# [phone] Chloride molar conc 108 mmol/L High 98-107 [facility] Comment on above: Performed By: #### L 500.59674, L500.29553, L500.07600, L500.65190, L500.21647 ####[facility] [id number] [place], [place] [address]Fm# [phone] CO2 molar conc 22 mmol/L Normal 21-32 [facility] Comment on above: Performed By: #### L 500.54765, L500.21951, L500.13253, L500.95173, L500.14505 ####[facility] MGDQLRQQNB7981 [place], [place] [address]Sl# [phone] Creatinine mass conc 0.481 mg/dL Low 0.510-0 .95 0 [facility] Comment on above: Result Comment: Shelbie ents receiving either N-Acetylcysteine (NAC) orMetamizole prior to venipuncture, may have falsely depressedresults. Performed By: #### L 500.17106, L500.01210, L500.58003, L500.66313, L500.97123 ####[facility] NMMCHQZOYO7424 [place], [place] [address]Li# [phone] Glucose mass conc 94 mg/dL Normal 70-100 [facility] Comment on above: Result Comment: 70-1 00- Normal Fasting; 100-125 Impaired Fasting; greaterthan 126 on more than one result- Diabetes. ADA guidelines.Results may be falsely elevated after the administration ofSulfapyridine.Results may be falsely depressed after the administration ofSulfasalazine. Performed By: #### L 500.00732, L500.31856, L500.44804, L500.57723, L500.49337 ####[facility] [id number] [place], [place] [address]Zc# [phone] Potassium molar conc 4.0 mmol/L Normal 3.5-5.1 [facility] Comment on above: Performed By: #### L 500.31001, L500.52399, L500.50697, L500.77996, L500.16141 ####[facility] [id number] [place], [place] [address]Ce# [phone] Sodium molar conc 140 mmol/L Normal 136-145 [facility] Comment on above: Performed By: #### L 500.63716, L500.14182, L500.75441, L500.16851, L500.12190 ####[facility] ZEJPHCHOBY4045 [place], [place] [address]Aa# [phone] Urea nitrogen mass conc 8 mg/dL Normal 7-26 [facility] Comment on above: Performed By: #### L 500.22263, L500.66702, L500.88730, L500.11822, L500.88106 ####[facility] FQNMCUIPQX6287 [place], [place] [address]Ru# [phone] Urea nitrogen/Creatinine mass ratio 17 mg/mg Normal 15-24 [facility] Comment on above: Performed By: #### L 500.75522, L500.47214, L500.13614, L500.26432, L500.40204 ####[facility] POHUGNZUWI6316 [place], [place] [address]Eg# [phone] CBC W/DIFFon 06-06-2018 BASO ABS 0.00 K/CU MM Normal 0-0.2 [facility] Comment on above: Order Comment: Festus s: M Performed By: #### L 200.53995 ####[facility] [address]JO[address] [place] [address]Oo# [phone] Basophils/100 WBC Auto (Bld) 0.3 % Normal 0-[address] [facility] Comment on above: Order Comment: Campu s: M Performed By: #### L 200.77611 ####[facility] [id number] [place], [place] [address]Nu# [phone] EOS ABS 0.20 K/CU MM Normal 0-0.[address] [facility] Comment on above: Order Comment: Campu s: M Performed By: #### L 200.39531 ####[facility] [id number] [place], [place] [address]Ph# [phone] Eosinophils/100 WBC Auto (Bld) 1.6 % Normal 0-[address] [facility] Comment on above: Order Comment: Campu s: M Performed By: #### L 200.46642 ####[place] [address]Ph# [phone] Erythrocyte distribution width Auto Ratio (RBC) 12.8 % Normal 11-14.[address] [facility] Comment on above: Order Comment: Campu s: M Performed By: #### L 200.94488 ####[place] [address]Ph# [phone] Hematocrit Auto Volume Fraction (Bld) 43.8 % Normal 35.0-47.[address] [facility] Comment on above: Order Comment: Campu s: M Performed By: #### L 200.77816 ####[facility] [id number] [place], [place] [address]Ph# [phone] Hemoglobin mass conc (Bld) 14.8 g/dL Normal 11.5-15.[address] [facility] Comment on above: Order Comment: Campu s: M Performed By: #### L 200.86107 ####[facility] [id number] [place], [place] [address]Ph# [phone] IMMATR GRAN ABS 0.10 K/CU MM Normal Less than [address] [facility] Comment on above: Order Comment: Campu s: M Performed By: #### L 200.33133 ####[facility] [id number] [place] [address]Ph# [phone] IMMATURE GRAN % 0.5 % Normal Less than [address] [facility] Comment on above: Order Comment: Campu s: M Performed By: #### L 200.36753 ####[facility] [id number] [place], [place] [address]Ph# [phone] Lymphocytes Auto #/vol (Bld) 2.30 K/CU MM Normal 0.9-4.[address] [facility] Comment on above: Order Comment: Campu s: M Performed By: #### L 200.56633 ####[place] [address]Ph# [phone] Lymphocytes/100 WBC Auto (Bld) 20.0 % Normal 20-40 [facility] Comment on above: Order Comment: Campu s: M Performed By: #### L 200.44033 ####[facility] [id number] [place], [place] [address]Ph# [phone] MCHC Auto mass conc (RBC) 33.8 g/dL Normal 32.0-36.[address] [facility] Comment on above: Order Comment: Campu s: M Performed By: #### L 200.54899 ####[facility] [id number] [place], [place] [address]Ph# [phone] MCV Auto Entitic volume (RBC) 89.2 fL Normal 80.0-99.[address] [facility] Comment on above: Order Comment: Campu s: M Performed By: #### L 200.20461 ####[facility] [id number] [place], [place] [address]Ph# [phone] MONO ABS 0.60 K/CU MM Normal 0.1-1.[address] [facility] Comment on above: Order Comment: Campu s: M Performed By: #### L 200.64341 ####[facility] FNPNFCNZXI[address] [place], [place] [address]Ph# [phone] Monocytes/100 WBC Auto (Bld) 5.6 % Normal 2-10 [facility] Comment on above: Order Comment: Campu s: M Performed By: #### L 200.37992 ####[facility] QOWHMNPXTV0092 [place], [place] [address]Yf# [phone] NEUTROPHIL ABS 8.20 K/CU MM Normal 2.0-8.3 [facility] Comment on above: Order Comment: Campu s: M Performed By: #### L 200.28392 ####[facility] [id number] [place] [address]Ii# [phone] Neutrophils/100 WBC Auto (Bld) 72.0 % Normal 45-75 [facility] Comment on above: Order Comment: Campu s: M Performed By: #### L 200.25920 ####[facility] [id number] [place], [place] [address]Ph# [phone] Nucleated RBC/100 WBC Ratio (Bld) 0.0 % Normal Less than 1 [facility] Comment on above: Order Comment: Campu s: M Performed By: #### L 200.39788 ####[facility] [id number] [place], [place] [address]Ph# [phone] Platelet mean volume Auto Entitic volume (Bld) 9.1 fL Low 9.4-12.4 [facility] Comment on above: Order Comment: Campu s: M Performed By: #### L 200.12441 ####[facility] [id number] [place] [address]Rn# [phone] Platelets Auto #/vol (Bld) 282 K/CU MM Normal 150-450 [facility] Comment on above: Order Comment: Campu s: M Performed By: #### L 200.55653 ####[facility] RCTJKBINNL0258 [place], [place] [address]Ee# [phone] RBC Auto #/vol (Bld) 4.91 M/CU MM Normal 3.90-5.30 [facility] Comment on above: Order Comment: Campu s: M Performed By: #### L 200.06531 ####[facility] [id number] [place], [place] [address]Hs# [phone] WBC Auto #/vol (Bld) 11.4 K/CU MM High 4.5-11.0 [facility] Comment on above: Order Comment: Campu s: M Performed By: #### L 200.58148 ####[facility] USYGTJZZRK1096 [place], [place] [address]Ck# [phone] CT ABD/PEL W IV CONTRAST ONL Yon 06-06-2018 CT ABD/PEL W IV CONTRAST ONLY CT ABD/PEL W IV CONTRAST ONLYOrdering Physician: [facility]06/06/2018 4:46 PMCT ABDOMEN AND PELVIS WITH IV CONTRAST:Clinical Statement: Abdominal pain, known hernia, nonreducibleComparison: CT abdomen pelvis 06/04/2018TECHNIQUE: Contiguous transaxial 3.75 mm slices were obtained throughthe abdomen and pelvis following the uneventful administration of 100cc of Isovue 300 IV contrast. Coronal reformats were also obtained.FINDINGS: Minimal atelectasis seen at the lung bases.There is diffuse low-density of the liver compatible with hepaticsteatosis. Postoperative changes of cholecystectomy are seen. Thespleen, adrenal glands, and pancreas are unremarkable. Subcentimeterhypodensities are seen in the bilateral kidneys which most likelyrepresent cysts.A few diverticuli are seen in the sigmoid and descending colon. Leftanterior abdominal wall hernia containing part of the transverse colonand mesenteric fat is not significantly changed. The neck of thehernia measures about 4.3 cm, unchanged. There are multiple smalladjacent fat-containing hernias. The uterus is present. There arebilateral tubal ligation devices. A dilated loop of small bowel at theanastomotic suture site in the left upper abdomen is not significantlychanged. There is no bowel obstruction. No acute osseous findings areseen.IMPRESSION:Unchanged anterior abdominal wall hernia containing part of thetransverse colon and mesenteric fat.A report was sent to the Emergency Department at the time ofdictation. ---- Electronic Signature on File ----Signed By: Markus Contreras [email or web address]: 06/06/2018 6:14 PMSigned: 06/06/2018 6:21 PM Reported By: MARKUS CONTRERAS M.D. Signed By: MARKUS CONTRERAS M.D. [facility] ED DOCon 06-06-2018 ED DOC PHYSICIA N ASSESSMENT ==RECORDS: FlexChartDataEvent Time: 06/06/2018 17:10 NMHStatus: [facility] CenterWhevita Wall [[id number]]Mid -Level Chart (V2b)32 / / 1985Chart created at 06/06/2018 17:00 by Heath [facility]McC[facility] closed at 06/06/2018 19:33Entry in Emergency Department at 06/06/2018 12:43,departure at 06/06/2018 20:10Patient Name: Mel Wall Record Number: [id number]: 06/06/2018 17:00Entered Department at: 06/06/2018 12:43 Patient Seen at:06/06/2018 16:36 Historian: PatientPCP: *None,.Chief Complaint:LUQ abdomen pain x4 days. Dx with hernia 4years ago, has not had surgery d/t noinsuranceNursing triage/initial assessment reviewed and confirmedand Initial Vital Signs reviewed.Temperature: 99 F (37.2 C). Pulse: 111. Respiratory Rate:18. Blood-pressure:151/85. Oxygen Saturation: 98%.History of Present Illness:32-Year-old female presents emergency department today withcomplaints of abdominal pain near a knownabdominal incisional hernia. She was evaluated here 2 daysago for the same. I did review this record.She states she has not called the general surgeon as she [facility] PATIENT NAME: MEL WALL [id number] [facility] [address] [place] MEDICAL REC #: [id number], [place] [address] DEPARTMENT CHART EMERGENCY DEPARTMENT PHYSICIANcannot afford the copayment for this hernia. Shestates this morning her abdominal pain got more severearound her hernia. This is been fixed twice in thedistant past though 4 days ago she bent over while in theshower and took a deep breath and picksomething up and it popped out. It is associated withnausea as well as vomiting. Her vomiting has beenbilious and about 10 episodes today. She reports she hasnot been passing gas or had any bowel movementssince yesterday when she had a small amount of loose stool.She denies any fevers. No chest pain or palpitations.Review of Systems. All other systems reviewed and negative..Past History, Medications, Allergies, Social History andFamily History reviewed in nurses note.Medications: Reviewed RN Note.Allergies: Reviewed RN NoteZofran(Hives), Toradol(Difficulty Breathing), TORADOL(CHESTTIGHTNESS), Toradol(Hives)Social History: Reviewed RN Note.Family History: Reviewed RN NotePhysical Examination: General: Alert; OverweightRespiratory: No Resp Distress, Chest non-tender andNormal Breath Sounds Cardio-Vascular: No murmur and No rub;Tachycardic regular rhythm Abdomen: Bowelsounds absent. Patient reports diffuse abdominal pain withguarding purposely, the pain is worse midwaybetween her epigastric area and nasal on the left ofmidline which she has a palpable, nonreducibleabdominal hernia measuring roughly 8 cm in diameter. Shedoes have a midline incision which this herniais to the left of. Neurological: Alert, Oriented X3 and NoGross Weakness Skin: No rash and No PetechiaePsychological: Normal Memory/Judgment; Tearful. Anxious.Uncomfortable.LACTAT E BLOOD, information as of 06/06/2018, 5:17 pmLACTATE BLOOD: 1.69 Mmol/L [facility] PATIENT NAME: MEL WALL[address] [facility] [address] [facility] MEDICAL REC #: [id number], [place] [address] DEPARTMENT CHART EMERGENCY DEPARTMENT PHYSICIANCBC W/DIFF, information as of 06/06/2018, 5:17 pm89.2/ 14.8 /11.4* andgt;------andlt; 282/ 43.8 /N:72.0BASO ABS: 0.00 K/Cu Mm; BASOPHIL %: 0.3 %; EOS ABS: 0.20K/Cu Mm; EOSINOPHIL %: 1.6 %; IMMATR GRAN ABS:0.10 K/Cu Mm; IMMATURE GRAN %: 0.5 %; LYMPH %: 20.0 %;LYMPH ABS: 2.30 K/Cu Mm; MCHC: 33.8 Gm/Dl; MONOABS: 0.60 K/Cu Mm; MONOCYTE %: 5.6 %; MPV: 9.1; NEUTROPHILABS: 8.20 K/Cu Mm; NRBC: 0.0 %; RBC: 4.91 M/CuMm; RDW: 12.8HCG, information as of 06/06/2018, 5:17 pmHCG SER RESULT: NegBMP, information as of 06/06/2018, 6:53 pm140 --------+--------+--------an reuben; 94 Anion Gap = 104.0 BUN/CREA: 17; CALCIUM TOTAL: 8.6 Mg/DlImaging Study Obtained:CT ABD/PEL W IV CONTRAST ONLYImaging Study Obtained:CT ABD/PEL W IV CONTRAST ONLY, Status:Signed ReportAvailableCT ABD/PEL W IV CONTRAST ONLYOrdering Physician: Heath Hernández/ 4:46 PMCT ABDOMEN AND PELVIS WITH IV CONTRAST:Clinical Statement: Abdominal pain, known hernia,nonreducibleCompariso n: CT abdomen pelvis 06/04/2018TECHNIQUE: Contiguous transaxial 3.75 mm slices wereobtained through [facility] PATIENT NAME: MEL WALL [id number] [facility] [address] MEDICAL REC #: [id number], [place] [address] DEPARTMENT CHART EMERGENCY DEPARTMENT PHYSICIANthe abdomen and pelvis following the uneventfuladministration of 100cc of Isovue 300 IV contrast. Coronal reformats were alsoobtained.FINDINGS: Minimal atelectasis seen at the lung bases.There is diffuse low-density of the liver compatible withhepaticsteatosis. Postoperative changes of cholecystectomy areseen. Thespleen, adrenal glands, and pancreas are unremarkable.Subcentimeterhy podensities are seen in the bilateral kidneys which mostlikelyrepresent cysts.A few diverticuli are seen in the sigmoid and descendingcolon. Leftanterior abdominal wall hernia containing part of thetransverse colonand mesenteric fat is not significantly changed. The neckof thehernia measures about 4.3 cm, unchanged. There are multiplesmalladjacent fat-containing hernias. The uterus is present.There arebilateral tubal ligation devices. A dilated loop of smallbowel at theanastomotic suture site in the left upper abdomen is notsignificantlychanged. There is no bowel obstruction. No acute osseousfindings are [facility] PATIENT NAME: MEL WALL Laron Al[address]ares MEDICAL REC #: [id number], [place] [address] DEPARTMENT CHART EMERGENCY DEPARTMENT PHYSICIANseen.IMPRESSION:Unc hanged anterior abdominal wall hernia containing part ofthetransverse colon and mesenteric fat.A report was sent to the Emergency Department at the time ofdictation. ---- Electronic Signature on File ----Signed By: Markus Contreras [email or web address]: 06/06/2018 6:14 PMSigned: 06/06/2018 6:21 PMReported By: MARKUS CONTRERAS M.D.Radiology: Interpreted by Radiologist.Medical Decision MakingPatient was seen 2 days ago for a nonreducible abdominalhernia. She called Dr. Walton office forfollow-up though because of the co-pay she did not make anappointment. She presents today, 2 days later,with worsening abdominal pain. CT was repeated and showedno changes from 2 days prior. There is noobstruction or strangulation. She has no leukocytosis orlactic acidosis. She was given pain medicationemergency department as well as anti-emetics. I did speakdirectly with the general surgeon on-call whofelt comfortable with her following on outpatient basisrather than her requiring an emergent surgicalintervention at this time. Advised the patient that juan manueleeds to call the office back and get anappointment as this is the definitive treatment option. [facility] PATIENT NAME: MEL WALL Laron Al[address]ares MEDICAL REC #: [id number], [place] [address] DEPARTMENT CHART EMERGENCY DEPARTMENT PHYSICIANPatient did agree to this and she will calltomorrow.Consults:18:55: Dr. Funk; general surgery; spoke to directlyin Ed, discussed patient, felt comfortablesending patient home with outpatient follow-up and withpain medication. He reviewed imaging findings.Additional Information: Old records reviewed. DiscussedResults, Diagnosis and Follow-Up with Patient.Prescription given (norco).Clinical Impression:1. acute incarcerated incisional hernia, no obstructionDisposition: Discharged *Home. Condition: GoodElectronically signed by Heath Calle PA-C on06/06/2018 at 19:33Direct patient care supervision and electronicdocumentation review by Lanie Ortiz on 06/06/201821:11.: FlexChartDataEvent Time: 06/06/2018 21:05Status: [facility]Whitdarien [facility] [[id number]]Att ending [id number] / / 1985Addendum (V2b)Chart created at 06/06/2018 20:29 by Lanie Montiel closed at 06/06/2018 20:30Entry in Emergency Department at 06/06/2018 12:43,departure at 06/06/2018 20:10 [facility] PATIENT NAME: MEL WALL [id number] [facility] [address] MEDICAL REC #: [id number], [place] [address] DEPARTMENT CHART EMERGENCY DEPARTMENT PHYSICIANPatient Name: Mel Wall Record Number: [id number]: 06/06/2018 20:29Entered Department at: 06/06/2018 12:43 Patient Seen at:06/06/2018 16:36 PCP:*None,.Chief Complaint:LUQ abdomen pain x4 days. Dx with hernia 4years ago, has not had surgery d/t noinsuranceMedical Decision MakingPatient presents with discomfort related to known abdominalwall hernia. CT scan shows no obstruction.Lab testing was okay. Case discussed with on-call surgeonwho recommends discharge home and follow-upwith surgeon she was referred to at time of most recent EDvisit. Pain medication prescribed. Patientdoes not have any rebound, guarding or peritoneal signs onmy exam; exam is nonsurgicalMSE completed.I was the primary ED attending..I confirm that I have evaluated the patient, reviewed themid-level providers documentation, anddiscussed the evaluation, plan of care and disposition ofthe patient with the mid-level provider.. at 20:30 : Discharge ReportEvent Time: 06/06/2018 19:34===DISCHARGE REPORT===: FlexChartDataEvent Time: 06/06/2018 17:10 [facility]: FlexChartDataEvent Time: 06/06/2018 21:05: Discharge ReportEvent Time: 06/06/2018 19:34Status: DraftReasons to Return to the ER: [facility] PATIENT NAME: MEL WALL [id number] [facility] [address] MEDICAL REC #: [id number], [place] [address] DEPARTMENT CHART EMERGENCY DEPARTMENT PHYSICIANYou must return to the ER for any new, worsening orchanging symptoms, or if you feel more ill or sick inany way. This is the most important thing to remember.Follow-up:The care you received in the ER was given on an emergencybasis only, and it is often not possible tocompletely treat or diagnose a problem in a single ERvisit. You must see your follow-up doctor for arecheck within a week unless you receive instructions witha different timeframe for follow-up. Pleasefollow all your discharge instructions.Medications:Unl ess the ER doctor tells you differently, you should takeall your regular medications and any newmedications prescribed today. Because it is not possiblefor the ER doctor to review all of yourmedication side effects or interactions, you must reviewpossible side effects and interactions with yourpharmacist when you get your prescriptions filled.EKG and Radiology Results:A smoking tobacco packing machine hand or radiologist will review any EKG orradiology results provided by the ER doctor. We willcontact you if the results in the final EKG or radiologyreports require a change in treatment.Culture Results:Cultures may have been ordered during your ER visit. Wewill contact you if the culture results require achange in treatment.Referrals:Most referrals to specialists come from the on-call listYou should make your regular doctor aware of anyreferrals before you schedule the appointment so that theyare aware and can make suggestionsDIAGNOSIS: [facility] PATIENT NAME: MEL WALL [id number] [facility] [address] MEDICAL REC #: [id number], [place] [address] DEPARTMENT CHART EMERGENCY DEPARTMENT PHYSICIANacute incarcerated incisional hernia, no obstructionINSTRUCTIONS:You must follow-up with general surgery as this is thedefinitive treatment. Pain medicine as prescribedfor home. Please call the general surgeon, Dr. Walton, whosereferral is once again provided. With feversover 100.4 or severely worsening symptoms please reportback however at this time there is no indicationof an emergent process however this does need tended to.UNLESS THE ER DOCTOR GIVES YOU OTHER INSTRUCTIONS, YOU MUSTSEE YOUR FOLLOW-UP DOCTOR WITHIN 1 TO 2 DAYSFOR RECHECK.YOU MUST RETURN TO THE ER RIGHT AWAY FOR ANY OF THEFOLLOWING:Increasing painChange in the location ofthe painNew or increasing fever or chillsNew or increasingconstipation or difficulty urinatingNew orincreasing abdominal swelling or bloatingBlood appears inthe stool, vomit or urineNew or increasingvomiting or diarrhea.New or increasing weakness ordizzinessEarly appendix infection is always apossibility and you must return if the pain moves to thelower right side of your abdomenREFERRALRudawit Walton MD (General Surgery), ,fax: please call the above number to schedule a follow-upappointment.2-3 daysMEDICATIONSWe have given you these prescriptions that you must filland start taking:Laneview 5 mg-325 mg tablet, count:20, Dose = 1-2, count:20,5 days, count:20, q8hrs, count:20, Number of Refills =0, count:20, R10.8, count:20 [facility] PATIENT NAME: MEL WALL [id number] [facility] [address] MEDICAL REC #: [id number], [place] [address] DEPARTMENT CHART EMERGENCY DEPARTMENT PHYSICIANCOMMENTS:Patient Satisfaction:Within the first few days after your visit, you willreceive an email and/or phone call regarding yourvisit. We value your feedback, and would appreciate it ifyou would take the time to complete this shortsurvey. If you receive a call, it will be between 6p and 8p.EXCUSED ABSENCE FROM WORK AND SCHOOL.Please excuse the above named patient from work/schooluntil 2 days from discharge (06/08/2018).My signature below indicates that I have received andunderstand the oral instructions regarding mymedical problem. I also acknowledge receipt of this writteninstruction sheet including a list of majortests and procedures ordered during my visit. I willarrange for follow-up care as indicated by theseinstructions and referrals.This signed original will be kept in my medical record.Your signature below indicates consent for Case Managementto contact communityst. [facility] hospitalcare providers in [facility] to meet your ongoing healthcare needs. This willallow forcontinuity of care once you leave theBr[facility]ency Department. This exchange of informationwillinclude, but not be limited to, disclosure of yourpatient information and possible release ofrecords. ==DEMOGRAPHICS ======Emergisoft Patient: MEL WALLSex: FDOB: 1985Age: 32 yrAccount No: [id number]: [id number] Date: 12:43 06/06/2018Address: [address] [address] [facility] PATIENT NAME: MEL WALL [id number] MEDICAL REC #: [id number], [place] [address] DEPARTMENT CHART EMERGENCY DEPARTMENT PHYSICIAN =REGISTRATION =====ED Number: [id number]: Marital Status: DFinancial Class: SELF TRIA GE Priori ty: 3 - UrgentComplaint: Abdominal PainStated Complaint: LUQ abdomen pain x4 days. Dx withhernia 4 years ago, has not had surgery d/t no insuranceArrival Date: 06/06/2018 12:43Triage Date: 06/06/2018 12:58Mode of Arrival: *Privately Owned VehicleTransfer From: * HomeWC: NLanguage: EnglishTransport: Ambulatory/Walk In BED=== A12 In: 06/06/2018 16:32:45 06/06/201816:32:45 KMGAA12 (Removed From) Out: 06/06/2018 20:10:41006/06/2018 20:10:41 CDCA PROV IDERS WILFRIDO Calle Provider Contact:06/06/2018 16:36:26 NMHEnd:MD Lanie Ortiz Provider Contact: 06/06/201816:36:31 FJShereed:TAMY LOPEZ Provider Contact: 06/06/2018 16:58:35CDCAEnd: [facility] PATIENT NAME: [facility] [id number] [facility] MEDICAL REC #: [id number], [place] [address] DEPARTMENT CHART EMERGENCY DEPARTMENT PHYSICIAN =TRIAGE HISTORY A LLERGIESAllergic To: Zofran - Hives 06/06/2018 13:00 JIFAllergic To: Toradol - Hives 06/06/2018 13:00 JIFCURRENT MEDSName: None 06/06/2018 20:00 CDCAILLNESSIllness: *None 06/06/2018 13:00 JIFPAST SURGERY HISTSurgery: Cholecystectomy 06/06/2018 13:00 JIFSurgery: Appendectomy 06/06/2018 13:00 JIFSurgery: X3 06/06/2018 13:00 JIFSurgery: Bio reflux 06/06/2018 13:00 JIFSurgery: Mass removed LLQ 06/06/2018 13:00 JIFSurgery: Abcess drained from abdomin 06/06/2018 13:00JIFSurgery: Hernia Repair x2 06/06/2018 13:00 JIFPAST SOCIAL HISTSocial History: Behavior age appropriate 06/06/201813:00 JIFSocial History: Communicates without wmywvgpqaw02/28/2018 13:00 JIFSocial History: Lives with family or significant other06/06/2018 13:00 JIFSocial History: Smoker-None 06/06/2018 13:00 JIFSocial History: Alcohol-Rarely 06/06/2018 13:00 JIF [facility] PATIENT NAME: MEL WALL [id number] [facility] [address] MEDICAL REC #: [id number], [place] [address] DEPARTMENT CHART EMERGENCY DEPARTMENT PHYSICIANSocial History: Have you traveled in the past month?Where no 06/06/2018 13:00 JIFPAST REDUCING MACHINE OPERATOR HISTSocial History: Last Menstrual Period 2 weeks ago06/06/2018 13:00 JIFIMMUNIZATIONSImmunization : *Not Applicable 06/06/2018 13:00 JIF NURSI NG ASSESSMENT ASSESS MENT NOTES 17:23 Patient reports her hernia on her leftupper abdomen came out again. Reports nausea, vomiting,dizziness, and lightheadedness. Skin is warm, dry, andpink. Respirations are even and unlabored. Lungs haveinspiratory and expiratory wheezes. Abdomen is soft,tender, and bowel sounds present x4. Patient moves allextremities with purpose. Patient is AOx4. Call lightwithin reach. 06/06/2018 17:24 CDCA06/06/2018 18:58 BMP REDRAWN AND SENT AT THIS TIME06/06/2018 18:59 CDCA JEFF TMENT 17:22 Staff/ Patient Interaction -Introduced self and assessed patients needs. 06/06/201817:23 CDCA06/06/2018 17:22 Staff/ Patient Interaction - Calllight placed within reach. 06/06/2018 17:23 CDCA06/06/2018 17:22 Patient Interaction - Allergy Band onPt. 06/06/2018 17:23 CDCA06/06/2018 17:22 Patient Interaction - Name Band on Pt06/06/2018 17:23 CDCA [facility] PATIENT NAME: [facility] WALL [id number] [facility] MEDICAL REC #: [id number], [place] [address] DEPARTMENT CHART EMERGENCY DEPARTMENT XGTJFIWWI61/28/2018 17:22 Hourly Rounding - Rounding 06/06/201817:23 CDCAElimination/Toileting YPain 8Position Comfortable YSafe Environment YFall Risk Change N006/06/2018 17:22 Primary DOC Guide - A. 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 Fall RiskAssessment (Age andlt;65) 06/06/2018 17:23 CDCAHistory of Falling in last 3 months? No (0)Confusion or Disorientation? No (0)Intoxicated or Sedated? No (0)Impaired Gait? No (0)Mobility Assist Device Used? No (0)Altered Elimination? No (0)Fall Risk Score 1-2 Points = Low Risk. 3-4 Points =Moderate Risk. 5 or more points = High Risk. 0Fall Score Greater andgt;= 3? No06/06/2018 17:23 Primary DOC Guide - D. PsychosocialAssessment 06/06/2018 17:23 CDCAOver the Last 2 weeks, how often have you had littleinterest or pleasure in doing things (0) Not at AllIs Psychosocial Assessment Score 3 or more? If score is3 or more please consult ED Navigator! NoTotal Psychosocial Assessment Score 0Over the last 2 weeks, how often have you been feelingdown, depressed or hopeless (0) Not at All06/06/2018 17:23 Primary DOC Guide - E. Family Violence [facility] PATIENT NAME: MEL WALL [id number] [facility] [address] MEDICAL REC #: [id number], [place] [address] DEPARTMENT CHART EMERGENCY DEPARTMENT PHYSICIANAssessment 06/06/2018 17:23 CDCAWithin the past year, has anyone ever pushed, shoved,slapped, choked, hit, punched or kicked you: NoWithin the past year, has anyone ever pressured orforced you to have sexual activities when you did not wantto: NoDo you feel safe and well cared for: YesIs there a partner from a previous or currentrelationship that is making you feel unsafe now: No06/06/2018 18:10 Hourly Rounding - Rounding 06/06/201818:10 CDCAElimination/Toileting YPain 6Position Comfortable YSafe Environment YAssessment Note pain reassessmentFall Risk Change 06/06/2018 18:49 Physician Call - at 184506/06/2018 18:50 AAR06/06/2018 18:49 [place] [address]/06/2018 18:50 AAR06/06/2018 19:11 Hourly Rounding - Rounding 06/06/201819:12 CDCAElimination/Toileting YPain 7Position Comfortable YSafe Environment YFall Risk Change 06/06/2018 20:08 Hourly Rounding - Rounding 06/06/201820:09 CDCAElimination/Toileting YPain 7Position Comfortable YSafe Environment YFall Risk Change 06/06/2018 20:08 Admit/Discharge - *Dischargeinstructions/tests andamp; procedures/med list reviewed andprovided; prescriptions given to patient 06/06/2018 20:09CDCANotes: Patient encouraged to follow up and to return with [facility] PATIENT NAME: MEL WALL [id number] MEDICAL REC #: [id number], [place] [address] DEPARTMENT CHART EMERGENCY DEPARTMENT PHYSICIANany new or worsening symptoms.06/06/2018 20:09 Admit/Discharge - Ambulated withsteady gait home 06/06/2018 20:09 CDCANotes: 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 No s/s ofinfiltrationIV Fluid: S 06/06/2018 17:21 06/06/2018 20:07CDCALine #: 1 Fluid: 0.9% NS 1000cc bagRate: ml/hr 999 Location: hand leftNdl Gauge: 22 # Attempts: 2Amt: 1000IV Fluid: D 06/06/2018 20:07 06/06/2018 20:07CDCALine #: 1 Fluid: 0.9% NS 1000cc bagRate: ml/hr 999 Location: hand leftNdl Gauge: 22 # Attempts: 2Notes: NO S/S OF INFILTRATIONIV Fluid: E 06/06/2018 20:07 06/06/2018 20:07CDCALine #: 1 Rate: ml/hr Location: hand leftNdl Gauge: 22 # Attempts: 2Notes: IV CATHETER INTACT. DRESSING APPLIED. 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 Operator Helper Resp: 18Sa02: 98 Room Air Temp: 99.00 F -06/06/2018 13:00 JIFVS-Pain Time: 06/06/2018 12:58 Pain Level: 8006/06/2018 13:00 JIFVS-GCS Time: 06/06/2018 12:58 Visual: 4 Verbal: 5 Motor:6 GCS Total: 15 06/06/2018 13:00 JIFVS-HT/WT Time: 06/06/2018 12:58 Weight: 283 lbs Fxkawb5606/06/2018 13:00 JIFVS-Visual Time: 06/06/2018 12:58 06/06/2018 13:00 JIFVS-FHT Time: 06/06/2018 12:58 06/06/2018 13:00JIFVS-Notes Time: 06/06/2018 12:58 map 111 06/06/201813:00 JIFVS-ROUTINE Time: 06/06/2018 17:21B/P: 133/72 - *Right Forearm - Lying - Machine Pulse:95 - Monitor Resp: 20Sa02: 95 Room Air 06/06/2018 17:22 CDCAVS-Pain Time: 06/06/2018 17:21 Pain Level: 808 17:22 CDCAVS-GCS Time: 06/06/2018 17:21 Visual: 4 Verbal: 5 Motor:6 GCS Total: 15 06/06/2018 17:22 CDCAVS-HT/WT Time: 06/06/2018 17:21 06/06/2018 17:22 CDCAVS-Visual Time: 06/06/2018 17:21 06/06/2018 17:22 CDCAVS-FHT Time: 06/06/2018 17:21 06/06/2018 17:22CDCAVS-Notes Time: 06/06/2018 17:21 MAP 94 06/06/201817:22 CDCAVS-ROUTINE Time: 06/06/2018 19:12B/P: 148/73 - *Right Forearm - Lying - Machine Pulse:92 - Monitor Resp: 18Sa02: 96 Room Air 06/06/2018 19:12 CDCAVS-Pain Time: 06/06/2018 19:12 Pain Level: 19:12 CDCAVS-GCS Time: 06/06/2018 19:12 Visual: 4 Verbal: 5 Motor:6 GCS Total: 15 06/06/2018 19:12 CDCAVS-HT/WT Time: 06/06/2018 19:12 06/06/2018 19:12 CDCAVS-Visual Time: 06/06/2018 19:12 06/06/2018 19:12 CDCAVS-FHT Time: 06/06/2018 19:12 06/06/2018 19:12CDCA [facility] PATIENT NAME: MEL WALL [id number] [facility] [address] MEDICAL REC #: [id number], [place] [address] DEPARTMENT CHART EMERGENCY DEPARTMENT PHYSICIANVS-Notes Time: 06/06/2018 19:12 MAP 103 06/06/201819:12 CDCAVS-ROUTINE Time: 06/06/2018 20:08B/P: 141/85 - *Right Forearm - Sitting - MachinePulse: 98 - Monitor Resp: 18Sa02: 97 Room Air 06/06/2018 20:08 CDCAVS-Pain Time: 06/06/2018 20:08 Pain Level: 20:08 CDCAVS-GCS Time: 06/06/2018 20:08 Visual: 4 Verbal: 5 Motor:6 GCS Total: 15 06/06/2018 20:08 CDCAVS-HT/WT Time: 06/06/2018 20:08 06/06/2018 20:08 CDCAVS-Visual Time: 06/06/2018 20:08 06/06/2018 20:08 CDCAVS-FHT Time: 06/06/2018 20:08 06/06/2018 20:08CDCAVS-Notes Time: 06/06/2018 20:08 map 108 06/06/201820:08 CDCA ORDE RS Discha rge patient 06/06/2018 19:49N/AOrdered: 06/06/2018 19:34 By . OtherReviewed: 06/06/2018 19:49 By . OtherEXTERN ORDER: GFRP 06/06/2018 19:20NoneOrdered: 06/06/2018 19:20 Completed Time:06/06/2018 19:20 Results Time: 06/06/2018 19:20EXTERN ORDER: BMP 06/06/2018 19:20NoneOrdered: 06/06/2018 19:20 Completed Time:06/06/2018 19:20 Results Time: 06/06/2018 19:20CBC with diff 06/06/2018 17:27N/AOrdered: 06/06/2018 16:46 By Heath DoyletCompleted Time: 06/06/2018 17:27 By GerberNoted Time: 06/06/2018 17:21 CDCAResults Time: 06/06/2018 17:27UA ccms (cath if unable to void in 30 mins) 06/06/201820:05 [facility] PATIENT NAME: MEL WALL [id number] [facility] [address] MEDICAL REC #: [id number], [place] [address] DEPARTMENT CHART EMERGENCY DEPARTMENT PHYSICIANN/AOrdered: 06/06/2018 16:46 By Heath oRdriguezompleted Time: 06/06/2018 20:05 By GerberNottisha Time: 06/06/2018 18:58 CDCAQuestion: Lab Urine Specimen TypeAnswer: Clean CatchQuestion: Also Culture, if indicated by UA results (Y or N)Answer: NOResults Time: 06/06/2018 20:05Morphine (IV)*(4mg/ml) DOSE: 4 mgIV 06/06/2018 17:21N/AOrdered: 06/06/2018 16:46 By Heath Rodriguezompleted Time: 06/06/2018 17:21 By Amina abd and pel with IV con only 06/06/2018 18:30N/AOrdered: 06/06/2018 16:46 By Heath Douglassleted Time: 06/06/2018 18:30 By RadhatIndication : Abdominal Pain, known hernia, nonreducibleNoted Time: 06/06/2018 18:17Question: Are you or think you might be ?Answer: PENDINGQuestion: Patient has history of true RCM allergy?Answer: NOPregnancy (serum) 06/06/2018 17:44N/AOrdered: 06/06/2018 16:46 By Heath Rodriguezompleted Time: 06/06/2018 17:44 By GerberNoted Time: 06/06/2018 17:20 CDCAResults Time: 06/06/2018 17:43BMP 06/06/2018 17:21N/AOrdered: 06/06/2018 16:46 By Heath CalleNoted Time: 06/06/2018 17:20 CDCALactic Acid Blood (POC) 06/06/2018 17:35N/AOrdered: 06/06/2018 16:46 By Heath Calle [facility] PATIENT NAME: MEL WALL [id number] [facility] [address] MEDICAL REC #: [id number], [place] [address] DEPARTMENT CHART EMERGENCY DEPARTMENT PHYSICIANCompleted Time: 06/06/2018 17:35 By GerberNoted Time: 06/06/2018 17:20 CDCAResults Time: 06/06/2018 17:35IV NS bolus 1L over 60 min 06/06/2018 20:07N/AOrdered: 06/06/2018 16:46 By Heath Rodriguezompleted Time: 06/06/2018 20:07 By Dianneed Time: 06/06/2018 17:20 CDCAReglan (IV)*(10mg/2ml) DOSE:10 mgIV 06/06/2018 17:21N/AOrdered: 06/06/2018 16:46 By Heath Rodriguezompleted Time: 06/06/2018 17:20 By Pedrooradol (IV)*(30mg/ml) DOSE: 15 mgIV 06/06/2018 18:57N/AOrdered: 06/06/2018 18:39 By Heath CalleNoted Time: 06/06/2018 18:50 CDCACancelled: 06/06/2018 18:57 NMHCancelled Reason: allergy D ISCHARGE Diagnosis: acute incarcerated incisional hernia, noobstruction 06/06/2018 19:34Disposition: Time: 06/06/2018 19:34Discharge Time: 06/06/2018 20:10Type: DischargeCondition: Stable for admission/discharge/transfer after emergency evaluation/treatment Category: *NOTAPPLICABLEReferral: 06/06/2018 19:34Admit Physician: . Other PRE SCRIPTIONS ==Laneview 5 mg-325 mg tablet 06/06/2018 19:01 NMHSI-2 q8hrs pain for 5 days [facility] PATIENT NAME: MEL WALL [id number] [facility] [address] [place] MEDICAL REC #: [id number], [place] [address] DEPARTMENT CHART EMERGENCY DEPARTMENT PHYSICIANAdditional Instructions: R10.8Dispense: 20 / Refills: CHARGES 0 .9% NS 1000cc bag QTY @ 1 06/06/2018 17:21 CDCAAuto Generated Charge SI GNATURE F rank Diana GARCIA [facility] PATIENT NAME: MEL WALL [address] [facility] [address] [place] MEDICAL REC #: [id number], [place] [address] DEPARTMENT CHART EMERGENCY DEPARTMENT PHYSICIAN Normal [facility] ED Documentation This is a preliminar y report only, as the practitioner review and authentication has not occurred. [facility] ESTon 06-06-2018 IF AMER Greater than 60 [facility] Comment on above: Performed By: #### L 500.62646, L500.76007, L500.70139, L500.61578, L500.93249 ####[facility] SFIRKIETCU[address] [place], [place] [address]Vm# [phone] IF non-AFR AMER Greater than 60 [facility] Comment on above: Performed By: #### L 500.32198, L500.51237, L500.08127, L500.91581, L500.87483 ####[facility] EROBFLOXRI[address]73 [place], [place] [address]Fu# [phone] HCGon 06-06-2018 HCG Qn Negative Normal NEGATIVE [facility] Comment on above: Order Comment: Campu s: M Performed By: #### L 500.63304, L500.94868, L500.85483, L500.74591, L500.95855 ####[facility] IEOPQGHJQI0826 [place], [place] [address]Ss# [phone] LACTATE BLOODon 06-06-2018 LACTATE BLOOD 1.69 MMOL/L Normal 0.40-2.00 [facility] Comment on above: Order Comment: Campu s: M Performed By: #### L 550.37368 ####[facility] OYVUZDEQXJ5148 [place], [place] [address]Md# [phone] UA COMPLETEon 06-06-2018 Color Nom (U) Yellow Normal [facility] Comment on above: Order Comment: Campu s: M Performed By: #### L 500.48717, L500.46484, L500.89262, L500.27530, L500.56197 ####[facility] ITFZLQIFMG4089 [place], [place] [address]Ik# [phone] Glucose mass conc (U) Negative Normal [facility] Comment on above: Order Comment: Campu s: M Performed By: #### L 500.27374, L500.52935, L500.67792, L500.10783, L500.78379 ####[facility] PIPHNJJBOY15[address] [place], [place] [address]Tr# [phone] MUCUS TRACE Normal [facility] Comment on above: Order Comment: Campu s: M Performed By: #### L 500.55263, L500.75992, L500.77421, L500.18221, L500.20558 ####[facility] [address] [place] [address]Rs# [phone] SQUAMOUS EPIS 6 EPI/HPF High 0-[address] [facility] Comment on above: Order Comment: Campu s: M Performed By: #### L 500.52439, L500.63124, L500.54247, L500.38147, L500.64020 ####[facility] AOIOKSDSIX1180 [place], [place] [address]Mg# [phone] UA APPEARANCE Hazy Normal CLEAR [facility] Comment on above: Order Comment: Campu s: M Performed By: #### L 500.43429, L500.26617, L500.08179, L500.06497, L500.78199 ####[facility] SLMMDUXOVJ9695 [place], [place] [address]Ck# [phone] UA BACTERIA TRACE Normal NONE [facility] Comment on above: Order Comment: Campu s: M Performed By: #### L 500.95099, L500.70168, L500.06697, L500.02642, L500.27055 ####[facility] AQLTRNBHLF0675 [place], [place] [address]Pm# [phone] UA BILIRUBIN Negative Normal [facility] Comment on above: Order Comment: Campu s: M Performed By: #### L 500.05110, L500.31931, L500.94468, L500.83024, L500.27526 ####[facility] [address] [place] [address]Mt# [phone] UA BLOOD SMALL Normal NEGATIVE [facility] Comment on above: Order Comment: Campu s: M Performed By: #### L 500.02789, L500.85944, L500.47232, L500.74240, L500.27446 ####[facility] [address]YIT[address] [place], [place] [address]Ph# [phone] UA KETONE 20 Normal [facility] Comment on above: Order Comment: Campu s: M Performed By: #### L 500.83739, L500.46047, L500.46417, L500.87517, L500.98641 ####[facility] [address]SRPI[address] [place] [address]Ta# [phone] UA LK ESTERASE Negative Normal NEGATIVE [facility] Comment on above: Order Comment: Campu s: M Performed By: #### L 500.75201, L500.57205, L500.41829, L500.21518, L500.41754 ####[facility] [address]WSS[address] [place], [place] [address]Ph# [phone] UA NITRITE Negative Normal NEGATIVE [facility] Comment on above: Order Comment: Campu s: M Performed By: #### L 500.26885, L500.57073, L500.55281, L500.47966, L500.70627 ####[facility] K[address]SAR[address] [place] [address]Hv# [phone] UA PH 6.0 Normal [facility] Comment on above: Order Comment: Campu s: M Performed By: #### L 500.23786, L500.00273, L500.37866, L500.26016, L500.98087 ####[facility] VABJNORQLF7619 [place], [place] [address]Hw# [phone] UA PROTEIN Negative Normal NEGATIVE [facility] Comment on above: Order Comment: Campu s: M Performed By: #### L 500.72181, L500.53722, L500.52189, L500.39934, L500.28259 ####[facility] XVWIKVOGEB2666 [place], [place] [address]Ef# [phone] UA RBC 8 RBC/HPF High 0-3 [facility] Comment on above: Order Comment: Campu s: M Performed By: #### L 500.96278, L500.56112, L500.32678, L500.63345, L500.80177 ####[address] [address]Ms# [phone] UA SPEC GRAV 1.051 Normal 1.005-1.03 0 [facility] Comment on above: Order Comment: Campu s: M Performed By: #### L 500.96857, L500.21513, L500.56437, L500.41882, L500.26822 ####[facility] [address] [place] [address]Gj# [phone] UA UROBILINOGEN Negative Normal [facility] Comment on above: Order Comment: Campu s: M Performed By: #### L 500.40857, L500.37693, L500.62925, L500.74579, L500.13438 ####[facility] VHSKWRHCSO1300 [place], [place] [address]Vk# [phone] UA WBC 3 WBC/HPF Normal 0-5 [facility] Comment on above: Order Comment: Campu s: M Performed By: #### L 500.54984, L500.81328, L500.14668, L500.92648, L500.72546 ####[facility] [address]FPAM[address] [place] [address]Hv# [phone] BMPon 06-04-2018 Anion gap 3 molar conc 10 mmol/L Normal 5-16 [facility] Comment on above: Order Comment: Campu s: M Performed By: #### L 500.87735, L500.77901, L500.54538, L500.74434, L500.56923 ####[facility] LJGGRYXSZF1017 [place], [place] [address]Rj# [phone] Calcium mass conc 9.9 mg/dL Normal 8.5-10.1 [facility] Comment on above: Order Comment: Campu s: M Performed By: #### L 500.97604, L500.72953, L500.23035, L500.32301, L500.60376 ####[facility] IFYHGDZTQR2513 [place], [place] [address]Nz# [phone] Chloride molar conc 106 mmol/L Normal 98-107 [facility] Comment on above: Order Comment: Campu s: M Performed By: #### L 500.68753, L500.24786, L500.20233, L500.51017, L500.20069 ####[facility] OKPPRAIQAU6753 [place], [place] [address]Gt# [phone] CO2 molar conc 23 mmol/L Normal 21-32 [facility] Comment on above: Order Comment: Campu s: M Performed By: #### L 500.19399, L500.49133, L500.92007, L500.33001, L500.06658 ####[facility] NURXMJTIGO7788 [place], [place] [address]Ol# [phone] Creatinine mass conc 0.485 mg/dL Low 0.510-0 .95 0 [facility] Comment on above: Order Comment: Campu s: M Result Comment: Shelbie ents receiving either N-Acetylcysteine (NAC) orMetamizole prior to venipuncture, may have falsely depressedresults. Performed By: #### L 500.91007, L500.97174, L500.56754, L500.27771, L500.58239 ####[facility] QPWDGCMNBQ7311 [place], [place] [address]Bh# [phone] Glucose mass conc 105 mg/dL High 70-[address] [facility] Comment on above: Order Comment: Campu s: M Result Comment: 70-1 00- Normal Fasting; 100-125 Impaired Fasting; greaterthan 126 on more than one result- Diabetes. ADA guidelines.Results may be falsely elevated after the administration ofSulfapyridine.Results may be falsely depressed after the administration ofSulfasalazine. Performed By: #### L 500.20203, L500.62744, L500.16618, L500.48267, L500.75525 ####[facility] VADZNICJOO3039 [place], [place] [address]Ij# [phone] Potassium molar conc 5.0 mmol/L Normal 3.5-5.1 [facility] Comment on above: Order Comment: Campu s: M Result Comment: Mode rate Hemolysis, Result may be falsely increased. Performed By: #### L 500.34694, L500.49006, L500.49128, L500.48808, L500.47548 ####[facility] IYTTYFKUXO9230 [place], [place] [address]Nb# [phone] Sodium molar conc 138 mmol/L Normal 136-[address] [facility] Comment on above: Order Comment: Campu s: M Performed By: #### L 500.09006, L500.04936, L500.03572, L500.50145, L500.20533 ####[facility] EOMPBKWOTA4112 [place], [place] [address]Dx# [phone] Urea nitrogen mass conc 9 mg/dL Normal 7-[address] [facility] Comment on above: Order Comment: Campu s: M Performed By: #### L 500.72129, L500.13913, L500.57726, L500.18647, L500.57427 ####[facility] GVMDXSOJEZ0752 [place], [place] [address]Vo# [phone] Urea nitrogen/Creatinine mass ratio 19 mg/mg Normal 15-[address] [facility] Comment on above: Order Comment: Campu s: M Performed By: #### L 500.20124, L500.22306, L500.76340, L500.99254, L500.93613 ####[facility] HWIISIIJTM2837 [place], [place] [address]Uo# [phone] CBC W/DIFFon 06-04-2018 BASO ABS 0.10 K/CU MM Normal 0-0.[address] [facility] Comment on above: Order Comment: Campu s: M Performed By: #### L 200.04375 ####[address] [address]Ki# [phone] Basophils/100 WBC Auto (Bld) 0.5 % Normal 0-[address] [facility] Comment on above: Order Comment: Campu s: M Performed By: #### L 200.63294 ####[facility] XEQRHEYUOM[address] [place] [address]Ux# [phone] EOS ABS 0.20 K/CU MM Normal 0-0.[address] [facility] Comment on above: Order Comment: Campu s: M Performed By: #### L 200.40510 ####[facility] TDCOPSPRTW[address] [place] [address]Ys# [phone] Eosinophils/100 WBC Auto (Bld) 1.8 % Normal 0-[address] [facility] Comment on above: Order Comment: Campu s: M Performed By: #### L 200.18103 ####[facility] [address]MSJOKOOD[address] [place] [address]Cn# [phone] Erythrocyte distribution width Auto Ratio (RBC) 12.7 % Normal 11-14.[address] [facility] Comment on above: Order Comment: Campu s: M Performed By: #### L 200.66349 ####[facility] HGKYPHNMHC[address] [place], [place] [address]Ph# [phone] Hematocrit Auto Volume Fraction (Bld) 44.2 % Normal 35.0-47.[address] [facility] Comment on above: Order Comment: Campu s: M Performed By: #### L 200.70088 ####[facility] SQTTYOKZFE[address] [place], [place] [address]Ph# [phone] Hemoglobin mass conc (Bld) 14.8 g/dL Normal 11.5-15.5 [facility] Comment on above: Order Comment: Campu s: M Performed By: #### L 200.57330 ####[address]# [phone] IMMATR GRAN ABS 0.10 K/CU MM Normal Less than [address] [facility] Comment on above: Order Comment: Campu s: M Performed By: #### L 200.78237 ####[place] [address]Ph# [phone] IMMATURE GRAN % 0.7 % Normal Less than [address] [facility] Comment on above: Order Comment: Campu s: M Performed By: #### L 200.70284 ####[facility] [address]WNKAN[address] [place], [place] [address]Ph# [phone] Lymphocytes Auto #/vol (Bld) 2.80 K/CU MM Normal 0.9-4.4 [facility] Comment on above: Order Comment: Campu s: M Performed By: #### L 200.80534 ####[facility] FFJBTRKZBL[address] [place], [place] [address]Ph# [phone] Lymphocytes/100 WBC Auto (Bld) 22.8 % Normal 20-[address] [facility] Comment on above: Order Comment: Campu s: M Performed By: #### L 200.39470 ####[place] [address]Ph# [phone] MCHC Auto mass conc (RBC) 33.5 g/dL Normal 32.0-36.0 [facility] Comment on above: Order Comment: Campu s: M Performed By: #### L 200.13462 ####[facility] WKOVOTDURA5395 [place], [place] [address]Bt# [phone] MCV Auto Entitic volume (RBC) 90.2 fL Normal 80.0-99.[address] [facility] Comment on above: Order Comment: Campu s: M Performed By: #### L 200.19285 ####[facility] [address]PJCZPTNI[address] [place], [place] [address]Ph# [phone] MONO ABS 0.70 K/CU MM Normal 0.1-1.1 [facility] Comment on above: Order Comment: Campu s: M Performed By: #### L 200.32070 ####[place] [address]Ph# [phone] Monocytes/100 WBC Auto (Bld) 5.6 % Normal 2-10 [facility] Comment on above: Order Comment: Campu s: M Performed By: #### L 200.18894 ####[facility] [address]BIJZDVT[address] [place], [place] [address]Ph# [phone] NEUTROPHIL ABS 8.50 K/CU MM High 2.0-8.3 [facility] Comment on above: Order Comment: Campu s: M Performed By: #### L 200.14159 ####[facility] [address]YWI[address] [place] [address]Ff# [phone] Neutrophils/100 WBC Auto (Bld) 68.6 % Normal 45-75 [facility] Comment on above: Order Comment: Campu s: M Performed By: #### L 200.08146 ####[facility] [address]YGRCTYQA[address] [place] [address]Ul# [phone] Nucleated RBC/100 WBC Ratio (Bld) 0.0 % Normal Less than 1 [facility] Comment on above: Order Comment: Campu s: M Performed By: #### L 200.45441 ####[facility] ATMTIGWRAZ[address] [place], [place] [address]Ph# [phone] Platelet mean volume Auto Entitic volume (Bld) 9.3 fL Low 9.4-12.4 [facility] Comment on above: Order Comment: Campu s: M Performed By: #### L 200.20538 ####[facility] FQYEMGNIUI2734 [place], [place] [address]Hc# [phone] Platelets Auto #/vol (Bld) 292 K/CU MM Normal 150-450 [facility] Comment on above: Order Comment: Campu s: M Performed By: #### L 200.22744 ####[facility] VDRFGIAQEZ4722 [place], [place] [address]Sv# [phone] RBC Auto #/vol (Bld) 4.90 M/CU MM Normal 3.90-5.30 [facility] Comment on above: Order Comment: Campu s: M Performed By: #### L 200.91653 ####[facility] LCQGHUBPPU8293 [place], [place] [address]Rr# [phone] WBC Auto #/vol (Bld) 12.4 K/CU MM High 4.5-11.0 [facility] Comment on above: Order Comment: Campu s: M Performed By: #### L 200.87228 ####[facility] MYPEHPBDFG9786 [place], [place] [address]Ru# [phone] CT ABD/PEL W IV CONTRAST ONL Yon 06-04-2018 CT ABD/PEL W IV CONTRAST ONLY CT ABD/PEL W IV CONTRAST ONLYOrdering Physician: Bola Bruce06/04/2018 2:07 PMCT ABDOMEN PELVIS IV CONTRAST ONLYClinical Statement: Abdominal painComparison: CT abdomen and pelvis 05/03/2017FINDINGS: CT of the abdomen and pelvis was performed followingintravenous administration of 100 cc of Isovue-300. Lack of oralcontrast limits assessment of the bowel.The included lung bases show no acute findings.There is no free air.Cystocele seen involving the bladder. Uterus and ovaries are notenlarged. There are bilateral tubal occlusive devices present. Thereis an unchanged anastomosis involving the small bowel of the leftlateral abdomen. There is dilatation in this region measuring up to4.8 cm. Bowel proximally and distally is not dilated.Gallbladder surgically absent. There is a hernia of fat and nowcontaining a short segment of uncompromised transverse colon just tothe left of midline in the periumbilical region. Bowel proximally anddistally is not distended. Caudal to this there is a small ventralhernia of fat. There is no ascites.The aorta is normal course and caliber.The liver shows steatosis. The liver and spleen are again mildlyenlarged. Pancreas and adrenals are not enlarged. No CT abnormality ofeither kidney is seen.IMPRESSION:Increase in size of an anterior abdominal wall hernia just to left ofmidline containing fat and now a short segment of transverse colon.The defect in the abdominal wall has increased in size now measuring4.2 cm. There is no obvious bowel compromise.Unchanged dilatation at a small bowel anastomosis.Hepatosplenomega ly with steatosis. ---- Electronic Signature on File ----Signed By: Seth [email or web address]: 06/04/2018 3:58 PMSigned: 06/04/2018 4:03 PM Reported By: TOM JONES M.D. Signed By: TOM JONES M.D. [facility] ED DOCon 06-04-2018 ED DOC PHYSICIA N ASSESSMENT ==RECORDS: FlexChartDataEvent Time: 06/04/2018 16:40Status: [facility] [[id number]]Mid -Level Chart (V2b) / / 1985Chart created at 06/04/2018 16:28 by Bola Roblero closed at 06/04/2018 16:38Entry in Emergency Department at 06/04/2018 11:47,departure at 06/04/2018 17:08Patient Name: Mel Wall Record Number: [id number]: 06/04/2018 16:28Entered Department at: 06/04/2018 11:47 Patient Seen at:06/04/2018 14:02 Historian: PatientPCP: *None,.Chief Complaint:pt comes in with abd pain, pt stated thather hernia popped out this morningTemperature: 97.7 F (36.5 C). Pulse: 87. Respiratory Rate:20. Blood-pressure:122/58. Oxygen Saturation: 96%.History of Present Illness:I agree with nurses notes she was in the shower and bentover twice and here off of her leg when shefelt her hernia pop out. She could not get it to reduce.She came in for evaluation of same. She has hadincreasing pain, nausea, vomiting. She does have a historyof a surgical repair for a ventral hernia. Hedid [place] [facility] not have a surgeon for follow-up locally. [facility] PATIENT NAME: MEL WALL [id number] [facility] [address] MEDICAL REC #: [id number], [place] [address] DEPARTMENT CHART EMERGENCY DEPARTMENT PHYSICIANHPI Elements: Onset:(Today); Timing: Sudden Onset;Location: Upper abdomen; Quality: Aching; Severity:maximum Moderate, now Mild; Context: At Rest; Exacerbatedby: Palpation; Alleviated by: NothingAssociated symptoms: None.Review of Systems. Constitutional: negative for Fever Eyes:negative for Eye Pain Ear/Nose/Throat:negative for Sore Throat Cardio-Vascular: negative forChest Pain Respiratory: negative for Dyspnea GI:positive for Abd. Pain, Nausea and Vomiting, negative forDiarrhea : negative for DysuriaMusculo-Skeletal: negative for Back Pain Neurological:negative for Headache Hem/Endo: negative forBleeding Immunology: negative for Joint Pain All othersystems reviewed and negative..Past History, Medications, Allergies, Social History andFamily History reviewed in nurses note.Medications: Reviewed RN Note.Allergies: Reviewed RN NoteZofran(Hives), Toradol(Difficulty Breathing), TORADOL(CHESTTIGHTNESS), Toradol(Hives)Social History: Reviewed RN Note.Family History: Reviewed RN NotePhysical Examination: General: Alert and Well DevelopedHEENT: Normal ENT inspection.Eyes: Lids Normal; . Oropharynx / Throat: NormalPharynx. Neck: No Lymphadenopathy, NoMeningismus and Supple Respiratory: No Resp Distress andNormal Breath Sounds Cardio-Vascular: No murmur,No rub and RRR Abdomen: Normal Bowel Sounds and Soft;Morbidly obese abdomen with protruding ventralhernia superior aspect of the incision site Back: No CVAtenderness, No Midline Tenderness and Non-tenderExtremity: No edema Neurological: No Gross Weakness Skin:No rash, No Petechiae, Warm and DryPsychological: Mood/Affect Normal and Normal Memory/JudgmentBMP, information as of 06/04/2018, 2:12 pm [facility] PATIENT NAME: MEL WALL [id number] [facility] [address] [place] MEDICAL REC #: [id number], [place] [address] DEPARTMENT CHART EMERGENCY DEPARTMENT [id number] --------+--------+--------an reuben; 105* Anion Gap = 105.0 BUN/CREA: 19; CALCIUM TOTAL: 9.9 Mg/DlCBC W/DIFF, information as of 06/04/2018, 2:12 pm90.2/ 14.8 /12.4* andgt;------andlt; 292/ 44.2 /N:68.6BASO ABS: 0.10 K/Cu Mm; BASOPHIL %: 0.5 %; EOS ABS: 0.20K/Cu Mm; EOSINOPHIL %: 1.8 %; IMMATR GRAN ABS:0.10 K/Cu Mm; IMMATURE GRAN %: 0.7 %; LYMPH %: 22.8 %;LYMPH ABS: 2.80 K/Cu Mm; MCHC: 33.5 Gm/Dl; MONOABS: 0.70 K/Cu Mm; MONOCYTE %: 5.6 %; MPV: 9.3; NEUTROPHILABS: 8.50 K/Cu Mm; NRBC: 0.0 %; RBC: 4.90 M/CuMm; RDW: 12.7LIPASE, information as of 06/04/2018, 2:12 pmLIPASE: 139 U/LLIVER, information as of 06/04/2018, 2:12 pmA/G RATIO: 1.3; ALBUMIN: 4.1 Gm/Dl; ALK PHOS: 56 U/L; BILIDIRECT: Less Than 0.05 Mg/Dl; BILI TOTAL: 0.3Mg/Dl; GLOBULIN: 3.1 Gm/Dl; SGOT (AST): 24 U/L; SGPT (ALT):24 Iu/L; TP: 7.2 Gm/DlHCG, information as of 06/04/2018, 2:12 pmHCG SER RESULT: NegImaging Study Obtained:CT ABD/PEL W IV CONTRAST ONLYImaging Study Obtained:CT ABD/PEL W IV CONTRAST ONLY, Status:Signed ReportAvailableCT ABD/PEL W IV CONTRAST ONLYOrdering Physician: Bola Bruce06/04/2018 2:07 PMCT ABDOMEN PELVIS IV CONTRAST ONLY [facility] PATIENT NAME: [facility] [id number] [facility] MEDICAL REC #: [id number], [place] [id number] DEPARTMENT CHART EMERGENCY DEPARTMENT PHYSICIANClinical Statement: Abdominal painComparison: CT abdomen and pelvis 05/03/2017FINDINGS: CT of the abdomen and pelvis was performedfollowingintravenou s administration of 100 cc of Isovue-300. Lack oforalcontrast limits assessment of the bowel.The included lung bases show no acute findings.There is no free air.Cystocele seen involving the bladder. Uterus and ovariesare notenlarged. There are bilateral tubal occlusive devicespresent. Thereis an unchanged anastomosis involving the small bowel ofthe leftlateral abdomen. There is dilatation in this regionmeasuring up to4.8 cm. Bowel proximally and distally is not dilated.Gallbladder surgically absent. There is a hernia of fat andnowcontaining a short segment of uncompromised transversecolon just tothe left of midline in the periumbilical region. Bowelproximally anddistally is not distended. Caudal to this there is a smallventralhernia of fat. There is no ascites.The aorta is normal course and caliber. [facility] PATIENT NAME: MEL WALL [id number] [facility] [address] MEDICAL REC #: [id number], [place] [address] DEPARTMENT CHART EMERGENCY DEPARTMENT PHYSICIANThe liver shows steatosis. The liver and spleen are againmildlyenlarged. Pancreas and adrenals are not enlarged. No CTabnormality ofeither kidney is seen.IMPRESSION:Increase in size of an anterior abdominal wall hernia justto left ofmidline containing fat and now a short segment oftransverse colon.The defect in the abdominal wall has increased in size nowmeasuring4.2 cm. There is no obvious bowel compromise.Unchanged dilatation at a small bowel anastomosis.Hepatosplenomega ly with steatosis. ---- Electronic Signature on File ----Signed By: Tom Jones [email or web address]: 06/04/2018 3:58 PMSigned: 06/04/2018 4:03 PMReported By: TOM JONES M.D.Radiology: Interpreted by Radiologist.Medical Decision Ufjlky65-Bagq-lhy female with abdominal pain and a history ofabdominal hernia. She had been medicated twiceand given anti-emetics. Her pain has subsided to the point [facility] PATIENT NAME: MEL WALL [id number] [facility] [address] [place] MEDICAL REC #: [id number], [place] [address] DEPARTMENT CHART EMERGENCY DEPARTMENT PHYSICIANwhere I could lay her flat and reduce thehernia. She tried to do the same herself, however, withlimited success due to the lower lid discomfortshe was having. CT scan does not identify any obstructionor any ischemic event. She does have aprogressively larger hernia. Patient will be dischargedwith a surgical follow-up. She will also be puton pain medication and antiemetics. During reassessment,she did notice some residual discomfort, but butno means as bad as it was on her original arrivalAdditional Information: Discussed Results, Diagnosis andFollow-Up with Patient. Prescription given.Clinical Impression:1. Abdominal pain2. Large ventral herniaDisposition: Discharged *Home. Condition: Good at16:38Direct patient care supervision and electronicdocumentation review by Cody Flynn on 06/04/201818:30.: FlexChartDataEvent Time: 06/04/2018 17:15Status: [facility] [[id number]]Att ending [id number] / / 1985Chart (V2b)Chart created at 06/04/2018 16:41 by Cody Dodge closed at 06/04/2018 16:42Entry in Emergency Department at 06/04/2018 11:47,departure at 06/04/2018 17:08Patient Name: Mel Wall Record Number: [id number] [facility] PATIENT NAME: MEL WALL [id number] [facility] [address] [place] MEDICAL REC #: [id number], [place] [address] DEPARTMENT CHART EMERGENCY DEPARTMENT PHYSICIANDate: 06/04/2018 16:41Entered Department at: 06/04/2018 11:47 Patient Seen at:06/04/2018 14:02 PCP:*None,.Chief Complaint:pt comes in with abd pain, pt stated thather hernia popped out this morningMSE completed.I was the primary ED attending..I confirm that I have reviewed the mid-level providersdocumentation and agree with the evaluation, planof care and disposition.. at16:42 : Discharge ReportEvent Time: 06/04/2018 16:40===DISCHARGE REPORT===: FlexChartDataEvent Time: 06/04/2018 16:40: FlexChartDataEvent Time: 06/04/2018 17:15: Discharge ReportEvent Time: 06/04/2018 16:40Status: DraftReasons to Return to the ER:You must return to the ER for any new, worsening orchanging symptoms, or if you feel more ill or sick inany way. This is the most important thing to remember.Follow-up:The care you received in the ER was given on an emergencybasis only, and it is often not possible tocompletely treat or diagnose a problem in a single ERvisit. You must see your follow-up doctor for arecheck within a week unless you receive instructions witha different timeframe for follow-up. Pleasefollow all your discharge instructions. [facility] PATIENT NAME: MEL WALL [id number] [facility] [address] MEDICAL REC #: [id number], [place] [address] DEPARTMENT CHART EMERGENCY DEPARTMENT PHYSICIANMedications:Unless the ER doctor tells you differently, you should takeall your regular medications and any newmedications prescribed today. Because it is not possiblefor the ER doctor to review all of yourmedication side effects or interactions, you must reviewpossible side effects and interactions with yourpharmacist when you get your prescriptions filled.EKG and Radiology Results:A smoking tobacco packing machine hand or radiologist will review any EKG orradiology results provided by the ER doctor. We willcontact you if the results in the final EKG or radiologyreports require a change in treatment.Culture Results:Cultures may have been ordered during your ER visit. Wewill contact you if the culture results require achange in treatment.Referrals:Most referrals to specialists come from the on-call listYou should make your regular doctor aware of anyreferrals before you schedule the appointment so that theyare aware and can make suggestionsDIAGNOSIS:Abdomin al pain, Large ventral herniaINSTRUCTIONS:Return if vomiting, fever, or worsening symptoms Maintainfollow-up with your general surgeon inWorcesterUNLESS THE ER DOCTOR GIVES YOU OTHER INSTRUCTIONS, YOU MUSTSEE YOUR FOLLOW-UP DOCTOR WITHIN 1 TO 2 DAYSFOR RECHECK.YOU MUST RETURN TO THE ER RIGHT AWAY FOR ANY OF THEFOLLOWING:Increasing painChange in the location of [facility] PATIENT NAME: MEL WALL [facility] [address] MEDICAL REC #: [id number], [place] [address] DEPARTMENT CHART EMERGENCY DEPARTMENT PHYSICIANthe painNew or increasing fever or chillsNew or increasingconstipation or difficulty urinatingNew orincreasing abdominal swelling or bloatingBlood appears inthe stool, vomit or urineNew or increasingvomiting or diarrhea.New or increasing weakness ordizzinessEarly appendix infection is always apossibility and you must return if the pain moves to thelower right side of your abdomenREFERRALYour regular doctor(s)Please call the above number to schedule a follow-upappointment.Vinh Walton MD (General Surgery), ,fax: please call the above number to schedule a follow-upappointment.MEDICAT IONSWe have given you these prescriptions that you must filland start taking:Phenergan 25 mg tablet, count:12, Dose = 1, count:12,q8h, count:12Norco 5 mg-325 mg tablet, count:16, Dose = 1, count:16, 4days, count:16,every 6 hours, count:16, Number of Refills =0, count:16, ICD 10 K 46. 9, count:16COMMENTS:Patient Satisfaction:Within the first few days after your visit, you willreceive an email and/or phone call regarding yourvisit. We value your feedback, and would appreciate it ifyou would take the time to complete this shortsurvey. If you receive a call, it will be between 6p and 8p.My signature below indicates that I have received andunderstand the oral instructions regarding my [facility] PAT[facility] MEDICAL REC #: [id number], [place] [address] DEPARTMENT CHART EMERGENCY DEPARTMENT PHYSICIANmedical problem. I also acknowledge receipt of this writteninstruction sheet including a list of majortests and procedures ordered during my visit. I willarrange for follow-up care as indicated by theseinstructions and referrals.This signed original will be kept in my medical record.Your signature below indicates consent for Case Managementto contact [facility]st[facility] providers in [facility] to meet your ongoing healthcare needs. This willallow forcontinuity of care once you leave theEmergency Department. This exchange of informationwillinclude, but not be limited to, disclosure of yourpatient information and possible release of records. DEMOGRAPHICS ====Emergisoft Patient: MEL WALLSex: FDOB: 1985Age: 32 yrAccount No: [id number]: [id number] Date: 11:47 06/04/2018Address: [address]Address: [facility] [place] [address] CJZ ISTRATION =ED Number: [id number]: Marital Status: DFinancial Class: SELF TRIA GE Priori ty: 3 - UrgentComplaint: Abdominal PainStated Complaint: pt comes in with abd pain, ptstated that her hernia popped out this morningArrival Date: 06/04/2018 11:47Triage Date: 06/04/2018 11:48Mode of Arrival: *Privately Owned Vehicle [facility] PATIENT NAME: MEL WALL [id number] [facility] [address] MEDICAL REC #: [id number], [place] [address] DEPARTMENT CHART EMERGENCY DEPARTMENT PHYSICIANTransfer From: * HomeWC: NLanguage: EnglishTransport: Ambulatory/Walk In BED=== E37 In: 06/04/2018 13:52:29 06/04/201813:52:29 SLHBE37 (Removed From) Out: 06/04/2018 17:08:01006/04/2018 17:08:01 RSS PROVI DERS BENNETT Bruce Provider Contact: 06/04/201814:02:29 LFDEnd:MD Cody Flynn Provider Contact: 06/04/201814:02:31 GJJEnd:MARIE MILLER Provider Contact: 06/04/2018 14:06:03DRBAEnd: ========TRIAGE HISTORY A LLERGIESAllergic To: Zofran - Hives 06/04/2018 11:50 KASDAllergic To: Toradol - Hives 06/04/2018 11:50 KASDILLNESSIllness: *None 06/04/2018 11:50 KASDPAST SURGERY HISTSurgery: Cholecystectomy 06/04/2018 11:50 KASDSurgery: Appendectomy 06/04/2018 11:50 KASD [facility] PATIENT NAME: MEL WALL [address] [facility] [address] MEDICAL REC #: [id number], [place] [address] DEPARTMENT CHART EMERGENCY DEPARTMENT PHYSICIANSurgery: X3 06/04/2018 11:50 KASDSurgery: Bio reflux 06/04/2018 11:50 KASDSurgery: Mass removed LLQ 06/04/2018 11:50 KASDSurgery: Abcess drained from abdomin 06/04/2018 11:50KASDSurgery: Hernia Repair x206/04/2018 11:50 KASDPAST SOCIAL HISTSocial History: Behavior age appropriate 06/04/201811:50 KASDSocial History: Communicates without ixivrkkbdi77/26/2018 11:50 KASDSocial History: Lives with family or significant other06/04/2018 11:50 KASDSocial History: Smoker-None 06/04/2018 11:50 KASDSocial History: Alcohol-Rarely 06/04/2018 11:50 KASDSocial History: Have you traveled in the past month?Where no 06/04/2018 11:50 KASD NURS ING ASSESSMENT ASSESS MENT NOTES 14:25 pt comes into the ED with abdominalpain. pt sts that her hernia is out and wont go back in.pt also complains of nausea/vomiting. pt is aandamp;o x4,breathing easy and non labored, abdomen is soft and round,+POP around hernia, bs x4. 06/04/2018 14:26 DRBA06/04/2018 15:48 PT REFUSING NG TUBE AT THIS TIME.SUMMER Cano MADE AWARE 06/04/2018 15:49 RSS [facility] PATIENT NAME: MEL WALL [id number] [facility] [address] MEDICAL REC #: [id number], [place] [address] DEPARTMENT CHART EMERGENCY DEPARTMENT PHYSICIAN =TREATMENT ==06/04/2018 14:27 Hourly Rounding - Rounding 06/04/201814:28 DRBAElimination/Toileting NPain 7Position Comfortable YSafe Environment Y06/04/2018 14:27 Patient Interaction - Allergy Band onPt. 06/04/2018 14:28 DRBA06/04/2018 14:27 Patient Interaction - Name Band on Pt06/04/2018 14:28 DRBA06/04/2018 14:27 Staff/ Patient Interaction - Calllight placed within reach. 06/04/2018 14:28 DRBA06/04/2018 14:27 Staff/ Patient Interaction -Introduced self and assessed patients needs. 06/04/201814:28 DRBA06/04/2018 14:27 Primary DOC Guide - A. 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 Fall RiskAssessment (Age andlt;65) 06/04/2018 14:28 DRBAHistory of Falling in last 3 months? No (0)Confusion or Disorientation? No (0)Intoxicated or Sedated? No (0)Impaired Gait? No (0)Mobility Assist Device Used? No (0)Altered Elimination? No (0) [facility] PATIENT NAME: MEL WALL [id number] [facility] [address] MEDICAL REC #: [id number], [place] [address] DEPARTMENT CHART EMERGENCY DEPARTMENT PHYSICIANFall Risk Score 1-2 Points = Low Risk. 3-4 Points =Moderate Risk. 5 or more points = High Risk. 0Fall Score Greater andgt;= 3? No06/04/2018 14:27 Primary DOC Guide - D. PsychosocialAssessment 06/04/2018 14:28 DRBAOver the Last 2 weeks, how often have you had littleinterest or pleasure in doing things (0) Not at AllIs Psychosocial Assessment Score 3 or more? If score is3 or more please consult ED Navigator! NoTotal Psychosocial Assessment Score 0Over the last 2 weeks, how often have you been feelingdown, depressed or hopeless (0) Not at All06/04/2018 14:28 Primary DOC Guide - E. Family ViolenceAssessment 06/04/2018 14:28 DRBAWithin the past year, has anyone ever pushed, shoved,slapped, choked, hit, punched or kicked you: NoWithin the past year, has anyone ever pressured orforced you to have sexual activities when you did not wantto: NoDo you feel safe and well cared for: YesIs there a partner from a previous or currentrelationship that is making you feel unsafe now: NoFamily Violence Clinical Observation All Negative Lasioz2606/04/2018 15:58 Patient Transport - Patient returnedfrom [facility]. 06/04/2018 15:58 JTM06/04/2018 16:52 Admit/Discharge - *Dischargeinstructions/tests andamp; procedures/med list reviewed andprovided; prescriptions given to patient 06/04/2018 16:24INF4306/04/2018 16:52 Admit/Discharge - Ambulated withsteady gait home 06/04/2018 16:52 RSS MEDIC ATIONS IV======== IV Fluid: B 06/04/2018 14:58 06/04/2018 14:58DRBA [facility] PATIENT NAME: MEL WALL [id number] [facility] [address] MEDICAL REC #: [id number], [place] [address] DEPARTMENT CHART EMERGENCY DEPARTMENT PHYSICIANLine #: 1 Fluid: Saline LockRate: ml/hr Location: mid forearm rightNdl Gauge: 22 # Attempts: 3Notes: flushes well, dressing appliedIV Fluid: E 06/04/2018 16:52 06/04/2018 16:52RSSLine #: 1 Rate: ml/hr Location: mid forearmrightNdl Gauge: 22 # Attempts: 3Notes: CATH INTACT, DRESSING APPLIED I AND O VITALS========= VS-ROUTINE Time: 06/04/2018 11:52B/P: 122/58 - Left Upper Arm - Sitting - MachinePulse: 87 - Monitor Resp: 20Sa02: 96 Room Air Temp: 97.70 F - Oral06/04/2018 11:55 JWGVS-Pain Time: 06/04/2018 11:52 Pain Level: 7006/04/2018 11:55 JWGVS-GCS Time: 06/04/2018 11:52 06/04/2018 11:55 JWGVS-HT/WT Time: 06/04/2018 11:52 Ht: 65 in. StatedWeight: 283 lbs Stated 06/04/2018 11:55 JWGVS-Visual Time: 06/04/2018 11:52 06/04/2018 11:55 JWGVS-FHT Time: 06/04/2018 11:52 06/04/2018 11:55JWGVS-Notes Time: 06/04/2018 11:52 MAP-83 06/04/201811:55 JWGVS-ROUTINE Time: 06/04/2018 15:00B/P: 126/78 - Left Upper Arm - Lying - Machine Pulse:89 - Monitor Resp: 18Sa02: 99 Room Air 06/04/2018 15:01 DRBAVS-Pain Time: 06/04/2018 15:00 06/04/2018 15:01DRBAVS-GCS Time: 06/04/2018 15:00 Visual: 4 Verbal: 5 Motor:6 GCS Total: 15 06/04/2018 15:01 DRBAVS-HT/WT Time: 06/04/2018 15:00 06/04/2018 15:01 DRBAVS-Visual Time: 06/04/2018 15:00 06/04/2018 15:01 DRBAVS-FHT Time: 06/04/2018 15:00 06/04/2018 15:01DRBA [facility] PATIENT NAME: MEL WALL [id number] [facility] [address] MEDICAL REC #: [id number], [place] [address] DEPARTMENT CHART EMERGENCY DEPARTMENT PHYSICIANVS-Notes Time: 06/04/2018 15:00 map 92 06/04/201815:01 DRBAVS-ROUTINE Time: 06/04/2018 16:48B/P: 112/66 - *Left Forearm - Lying - Machine Pulse:75 - Monitor Resp: 18Sa02: 93 Room Air 06/04/2018 16:48 JLMBVS-Pain Time: 06/04/2018 16:48 06/04/2018 16:48JLMBVS-GCS Time: 06/04/2018 16:48 06/04/2018 16:48 JLMBVS-HT/WT Time: 06/04/2018 16:48 06/04/2018 16:48 JLMBVS-Visual Time: 06/04/2018 16:48 06/04/2018 16:48 JLMBVS-FHT Time: 06/04/2018 16:48 06/04/2018 16:48JLMBVS-Notes Time: 06/04/2018 16:48 map 84 06/04/201816:48 JLMB ORDE RS Discha rge patient 06/04/2018 16:42N/AOrdered: 06/04/2018 16:38 By . OtherReviewed: 06/04/2018 16:42 By . MaritoDilaudid (IV)*(2mg/ml) DOSE: 1 mgIV 06/04/2018 15:33N/AOrdered: 06/04/2018 15:27 By Bola Hurd Time: 06/04/2018 15:32 By Bola Irvin Time: 06/04/2018 15:29 RSSCompazine (IV)(10mg/2ml) DOSE: 10 mgIV 06/04/2018 15:29N/AOrdered: 06/04/2018 15:22 By Bola Belled Time: 06/04/2018 15:28 By Bola BishopkoNoted Time: 06/04/2018 15:24 RSSEXTERN ORDER: HCG 06/04/2018 15:18NoneOrdered: 06/04/2018 15:18 Completed Time:06/04/2018 15:18 Results Time: 06/04/2018 15:18Benadryl (IV)*(50mg/ml) DOSE: 25 mgIV 06/04/2018 15:06 [facility] PATIENT NAME: MEL WALL [id number] [facility] [address] MEDICAL REC #: [id number], [place] [address] DEPARTMENT CHART EMERGENCY DEPARTMENT PHYSICIANN/AOrdered: 06/04/2018 15:02 By Bola BruceCompleted Time: 06/04/2018 15:06 By Bola Irvin Time: 06/04/2018 15:03 DRBAEXTERN ORDER: GFRP 06/04/2018 14:55NoneOrdered: 06/04/2018 14:55 Completed Time:06/04/2018 14:55 Results Time: 06/04/2018 15:18Lab: Add On Test (excluding POC tests) 06/04/201816:24N/AOrdered: 06/04/2018 14:24 By Bola Belled Time: 06/04/2018 16:24 By Bola Jied Time: 06/04/2018 14:28 DRBAQuestion: Test to be added:Answer: serum testIV hep lock 06/04/2018 14:28N/AOrdered: 06/04/2018 14:07 By Bola BruceCompleted Time: 06/04/2018 14:28 By Bola Fuchs abd and pel with IV con only 06/04/2018 16:04N/AOrdered: 06/04/2018 14:07 By Bola BruceCompleted Time: 06/04/2018 16:04 By Bola Lovingication: Abdominal PainNoted Time: 06/04/2018 15:50Question: Are you or think you might be ?Answer: NOQuestion: Patient has history of true RCM allergy?Answer: NOPhenergan (IVPB)(12.5mg/50ml NS) DOSE: 12.5 mgIV 06/04/201814:34N/AOrdered: 06/04/2018 14:07 By Bola Davenportpleted Time: 06/04/2018 14:34 By Bola Irvin Time: 06/04/2018 14:28 DRBAMorphine (IV)*(4mg/ml) DOSE:4 mgIV 06/04/2018 14:34N/A [facility] PATIENT NAME: MEL WALL [id number] MEDICAL REC #: [id number], [place] [address] DEPARTMENT CHART EMERGENCY DEPARTMENT PHYSICIANOrdered: 06/04/2018 14:07 By Bola Hurd Time: 06/04/2018 14:33 By Bola Irvin Time: 06/04/2018 14:28 DRBABMP 06/04/2018 14:55N/AOrdered: 06/04/2018 14:07 By Bola Hurd Time: 06/04/2018 14:55 By Bola Irvin Time: 06/04/2018 14:21 Faiza Time: 06/04/2018 15:18CBC with diff 06/04/2018 14:21N/AOrdered: 06/04/2018 14:07 By Bola Hurd Time: 06/04/2018 14:21 By Bola Frost Time: 06/04/2018 14:21Lipase 06/04/2018 14:55N/AOrdered: 06/04/2018 14:07 By Bola BruceCompleted Time: 06/04/2018 14:55 By Bola BishopkoNoted Time: 06/04/2018 14:21 DRBAResults Time: 06/04/2018 15:18Liver profile 06/04/2018 14:55N/AOrdered: 06/04/2018 14:07 By Bola BruceCompleted Time: 06/04/2018 14:55 By Bola BruceNoted Time: 06/04/2018 14:21 DRBAResults Time: 06/04/2018 15:18NG tube insertion 06/04/2018 16:24N/AOrdered: 06/04/2018 15:22 By Bola BruceCancelled: 06/04/2018 16:24 LFDCancelled Reason: pt refused D ISCHARGE Diagnosis: Abdominal pain, Large ventral tiljln2906/04/2018 16:41CANCELLED DIAGNOSESDiagnosis Name: Abdominal pain, Large ventral herniaDisposition: Time: 06/04/2018 16:38 [facility] PATIENT NAME: [facility]ALL [id number] [facility] MEDICAL REC #: [id number], [place] [address] DEPARTMENT CHART EMERGENCY DEPARTMENT PHYSICIANDischarge Time: 06/04/2018 17:08Type: DischargeCondition: Stable for admission/discharge/transfer after emergency evaluation/treatment Category: *NOTAPPLICABLEReferral: 06/04/2018 16:40Admit Physician: . Other PRE SCRIPTIONS ==Phenergan 25 mg tablet 06/04/2018 16:39SI q8h nauseaDispense: 12 / Refills:Laneview 5 mg-325 mg tablet 06/04/2018 16:39SI q6h for 4 daysAdditional Instructions: ICD 10 K 46. 9Dispense: 16 / Refills: CHARGES SIGNATURE Cody MUNOZ HBLARRY [facility] PATIENT NAME: MEL WALL [id number] [facility] [address] MEDICAL REC #: [id number], [place] [address] DEPARTMENT CHART EMERGENCY DEPARTMENT PHYSICIAN [facility] ED Documentation This is a preliminar y report only, as the practitioner review and authentication has not occurred. [facility] GFR ESTon 06-04-2018 IF AMER Greater than 60 [facility] Comment on above: Order Comment: Festus cespedes: Ludivina Performed By: #### L 500.67661, L500.30056, L500.15714, L500.35666, L500.55752 ####[facility] [address] [place], [place] [address]Wm# [phone] IF non-AFR AMER Greater than 60 Normal [facility] Comment on above: Order Comment: Campu s: M Performed By: #### L 500.92129, L500.40331, L500.31004, L500.74947, L500.93612 ####[facility] [address] [place], [place] [address]Ov# [phone] HCGon 06-04-2018 HCG Qn Negative Normal NEGATIVE [facility] Comment on above: Order Comment: Campu s: M Performed By: #### L 500.93936, L500.41536, L500.62409, L500.51975, L500.90994 ####[facility] [address] [place], [place] [address]Yf# [phone] LIPASEon 06-04-2018 Lipase enzyme act/vol 139 U/L Normal 73-393 [facility] Comment on above: Order Comment: Campu s: M Performed By: #### L 500.54672, L500.98530, L500.20662, L500.93689, L500.71505 ####[facility] [address] [place], [place] [address]Oi# [phone] LIVERon 06-04-2018 Albumin mass conc 4.1 g/dL Normal 3.2-5.0 [facility] Comment on above: Order Comment: Campu s: M Performed By: #### L 500.48757, L500.07921, L500.50989, L500.86707, L500.29990 ####[facility] [address] [place], [place] [address]Nd# [phone] Albumin/Globulin mass ratio 1.3 {ratio} Normal 0.8-2.0 [facility] Comment on above: Order Comment: Campu s: M Performed By: #### L 500.91095, L500.94933, L500.94426, L500.43430, L500.10235 ####[facility] [id number] [place], [place] [address]Rg# [phone] ALK PHOS 56 U/L Normal 45-[address] [facility] [place] Comment on above: Order Comment: Campu s: M Performed By: #### L 500.33970, L500.06791, L500.22098, L500.03670, L500.62002 ####[facility] [address] [place], [place] [address]Op# [phone] ALT enzyme act/vol 24 U/L Normal 13-61 [facility] Comment on above: Order Comment: Campu s: M Result Comment: RESU LTS MAY BE FALSELY DEPRESSED AFTER THE ADMINISTRATION OFSULFASALAZINE AND/OR SULFAPYRIDINE. Performed By: #### L 500.68373, L500.95790, L500.58455, L500.13722, L500.98022 ####[facility] [address] [place], [place] [address]Fd# [phone] BILI DIRECT LESS THAN 0.05 Normal 0.00-0.20 [facility] Comment on above: Order Comment: Campu s: M Performed By: #### L 500.38212, L500.27290, L500.65652, L500.58251, L500.16722 ####[facility] [address] [place], [place] [address]Wq# [phone] BILI TOTAL 0.3 MG/DL Normal 0.2-1.0 [facility] Comment on above: Order Comment: Campu s: M Performed By: #### L 500.84849, L500.01191, L500.53027, L500.34633, L500.21969 ####[facility] [address] [place], [place] [address]Xw# [phone] Globulin Calculated mass conc (S) 3.1 g/dL Normal 2.2-4.2 [facility] Comment on above: Order Comment: Campu s: M Performed By: #### L 500.49165, L500.65458, L500.25789, L500.27971, L500.22910 ####[facility] [address] [place], [place] [address]Pg# [phone] Protein mass conc 7.2 g/dL Normal 6.0-8.5 [facility] Comment on above: Order Comment: Campu s: M Performed By: #### L 500.28898, L500.25161, L500.50171, [id number], [id number] ####[facility] [id number] [place], [place] [address]Vy# [phone] SGOT (AST) 24 U/L Normal 8-34 [facility] Comment on above: Order Comment: Campu s: M Result Comment: Mode rate Hemolysis, Result may be falsely increased.RESULTS MAY BE FALSELY DEPRESSED AFTER THE ADMINISTRATION OFSULFASALAZINE AND/OR SULFAPYRIDINE. Performed By: #### L [id number], [id number], [id number], [id number], [id number] ####[facility] [id number] [place], [place] [address]Wn# [phone] Lab Report: Basic Metabolic Profile (BMP)on 10-20-2017 Anion gap 13 mmol/L Invalid Interpretation Code 5-15 [facility] [employer] Work Phone: BUN/Creatinine Ratio 13.3 RATIO Invalid Interpretation Code 10-20 [facility] [employer] Work Phone: Calcium 7.8 mg/dL Low 8.5-10.1 [facility] [employer] Work Phone: Chloride 107 mmol/L Invalid Interpretation Code 98-107 [facility] [employer] Work Phone: CO2 19.0 mmol/L Low 21.0-32.0 [facility] [employer] Work Phone: Creatinine 106.87 mL/min Invalid Interpretation Code [facility] [employer] Work Phone: Creatinine 0.68 mg/dL Invalid Interpretation Code 0.55-1.02 [facility] [employer] Work Phone: eGFR (non-black) 107 mL/min/{1.73_m2} Invalid Interpretation Code >60 [facility] [employer] Work Phone: eGFR (non-black) 129 mL/min/{1.73_m2} Invalid Interpretation Code >60 [facility] [employer] Work Phone: Glucose 120 mg/dL High 70-110 [facility] [employer] Work Phone: Potassium 4.7 mmol/L Invalid Interpretation Code 3.5-5.1 [facility] [employer] Work Phone: Sodium 139 mmol/L Invalid Interpretation Code 136-145 [facility] [employer] Work Phone: Urea nitrogen 9 mg/dL Invalid Interpretation Code 7-18 [facility] [employer] Work Phone: Lab Report: Bedside Glucoseo n 10-20-2017 Glucose 106 mg/dL Invalid Interpretation Code 70-110 [facility] [employer] Work Phone: Lab Report: CBC W/Diff, Auto matedon 10-20-2017 Basophils/100 leukocytes 0.1 % Invalid Interpretation Code 0-1 [facility] [employer] Work Phone: Eosinophils/100 leukocytes 1.0 % Invalid Interpretation Code 0-5 [facility] [employer] Work Phone: Erythrocytes (RBC) 4.07 10*6/uL Low 4.2-5.4 [facility] [employer] Work Phone: Hematocrit (HCT) 37.3 % Invalid Interpretation Code 37-47 [facility] [employer] Work Phone: Hemoglobin (HGB) 12.2 g/dL Invalid Interpretation Code 12.0-15.0 [facility] [employer] Work Phone: immature granulocytes, percentage of total cells, blood 0.600 % Invalid Interpretation Code 0.0-0.9 [facility] [employer] Work Phone: Lymphocytes 2.01 X10 3/UL Invalid Interpretation Code 0.83-4.51 [facility] [employer] Work Phone: Lymphocytes/100 leukocytes 17.2 % Low 19-41 [facility] [employer] Work Phone: MCH 30.0 pg Invalid Interpretation Code 27.0-32.0 [facility] [employer] Work Phone: MCHC 32.7 G/GL Invalid Interpretation Code 32-36 [facility] [employer] Work Phone: MCV 91.6 fL Invalid Interpretation Code 81-99 [facility] [employer] Work Phone: Monocytes/100 leukocytes 4.2 % Invalid Interpretation Code 0-10 [facility] [employer] Work Phone: neutrophil count, blood 9.0 X10 3/UL High 2.0-7.7 [facility] [employer] Work Phone: Neutrophils/100 leukocytes 76.9 % High 47-70 [facility] [employer] Work Phone: Platelets 223 10*3/mm3 Invalid Interpretation Code 150-450 [facility] [employer] Work Phone: PMV by Bryan 9.0 fL Invalid Interpretation Code 6.2-12.0 [facility] [employer] Work Phone: RDW-CA 12.8 % Invalid Interpretation Code 11.6-14.6 [facility] [employer] Work Phone: red blood cell distribution width, size density 42.8 fL Invalid Interpretation Code 35.1-43.9 [facility] [employer] Work Phone: WBC (Leukocytes) 11.7 10*3/uL High 4.4-11.0 [facility] [employer] Work Phone: Office Visiton 07-28-2016 Documentation of current medications (procedure) T Invalid Interpretation Code [facility] [employer] Work Phone: Documentation of current medications (procedure) Done Invalid Interpretation Code [facility] [employer] Work Phone: Tobacco smoking status NHIS Tobacco smoking status NHIS Invalid Interpretation Code [facility] [employer] Work Phone: Lab Report: CBC W/Diff, Auto matedon 09-15-2014 Absolute Neutrophil count 5.6 X10 3/UL Invalid Interpretation Code 2.0-7.7 [facility] [employer] Work Phone: RDW-CA 1.96 X10 3/ul Invalid Interpretation Code 0.83-4.51 [facility] [employer] Work Phone: Lab Report: D-Dimer Quantita tive (DVT/PE)on 09-15-2014 D-dimer quantitative mcg/mL 0.28 FEU/UG/M Invalid Interpretation Code 0.27-0.49 [facility] [employer] Work Phone: Lab Report: CMPon 11-24-2011 Alanine aminotransferase (ALT) 25 U/L Normal 12-78 [facility] [employer] Work Phone: Albumin 3.6 g/dL Normal 3.4-5.0 [facility] [employer] Work Phone: Alkaline phosphatase (ALP) 52 U/L Normal 50-136 [facility] [employer] Work Phone: Aspartate aminotransferase (AST) 11 U/L Low 15-37 [facility] [employer] Work Phone: Bilirubin (total) 0.20 mg/dL Normal 0.00-1.00 [facility] [employer] Work Phone: Lab Report: LIPASEon 012 lipase, serum 91 U/L Normal 70-290 [facility] [employer] Work Phone: Lab Report: UACon 11-24-2011 specific gravity, urine >=1.030 Normal 1.002-1.03 0 [facility] [employer] Work Phone: Office Visiton 10-26-2011 Urine, test (choriogonadotropin presence) Negative Invalid Interpretation Code [facility] [employer] Work Phone: Lab Report: LIPIDon 09-15-20 11 Cholesterol 138 mg/dL Normal 200 [facility] [employer] Work Phone: HDL Cholesterol 41 mg/dL Normal [facility] [employer] Work Phone: LDL Cholesterol 68 mg/dL Normal 0-130 [facility] [employer] Work Phone: Triglyceride 146 mg/dL Normal [facility] [employer] Work Phone: very low density lipoproteins 29 mg/dL Normal 5-40 [facility] [employer] Work Phone: Lab Report: TSHon 09-15-2011 Thyroid stimulating hormone (TSH) 1.06 u[iU]/mL Normal 0.358-3.74 [facility] [employer] Work Phone: Vital Signs Date Time Vital Sign Value Performing Clinician Janina celaya 08-06-2025 09:40-0400 Diastolic blood pressure 78 mm[Hg] [employer] DO Work Phone: [facility] 08-06-2025 09:40-0400 Heart rate 60 /min [employer] DO Work Phone: [facility] 08-06-2025 09:40-0400 Respiratory rate 18 /min [employer] Work Phone: [facility] 08-06-2025 09:40-0400 SaO2% (BldA) [Mass fraction] 98 % [employer] Work Phone: [facility] 08-06-2025 09:40-0400 Systolic blood pressure 116 mm[Hg] [employer] Work Phone: [facility] 08-06-2025 09:20-0400 Body temperature 97 [degF] [employer] Work Phone: [facility] 08-06-2025 08:16-0400 Body height 165.1 cm [employer] Work Phone: [facility] 08-06-2025 08:16-0400 Body mass index (BMI) [Ratio] 31.62 kg/m2 [employer] Work Phone: [facility] 08-06-2025 08:16-0400 Body weight 86.18 kg [employer] Work Phone: [facility] 07-30-2025 19:39-0400 Diastolic blood pressure 55 mm[Hg] Regina Prince MD Work Phone: [facility] 07-30-2025 19:39-0400 Heart rate 87 /min Regina Prince MD Work Phone: [facility] 07-30-2025 19:39-0400 Respiratory rate 22 /min Regina Prince MD Work Phone: [employer] 07-30-2025 19:39-0400 SaO2% (BldA) [Mass fraction] 100 % Regina Prince MD Work Phone: [employer] 07-30-2025 19:39-0400 Systolic blood pressure 125 mm[Hg] Regina Prince MD Work Phone: [employer] 07-30-2025 14:40-0400 Body height 165.1 cm Regina Prince MD Work Phone: [employer] 07-30-2025 14:40-0400 Body mass index (BMI) [Ratio] 31.62 kg/m2 Regina Prince MD Work Phone: [employer] 07-30-2025 14:40-0400 Body temperature 98.91 [degF] Regina Prince MD Work Phone: [employer] 07-30-2025 14:40-0400 Body weight 86.18 kg Regina Prince MD Work Phone: [employer] 07-10-2025 08:17-0400 Body temperature 98.49 [degF] Jacqueline Pam DO Work Phone: [employer] 07-10-2025 08:17-0400 Diastolic blood pressure 76 mm[Hg] Jacqueline Pam DO Work Phone: [employer] 07-10-2025 08:17-0400 Heart rate 65 /min Jacqueline Pam DO Work Phone: [facility] 07-10-2025 08:17-0400 SaO2% (BldA) [Mass fraction] 98 % Jacqueline Pam DO Work Phone: [employer] 07-10-2025 08:17-0400 Systolic blood pressure 120 mm[Hg] Jacqueline Pam DO Work Phone: [employer] 07-09-2025 23:23-0400 Body mass index (BMI) [Ratio] 36.28 kg/m2 Jacqueline Orozco DO Work Phone: [facility] [employer] 07-09-2025 23:23-0400 Body weight 98.88 kg Jacquelinejustin Brambilaoch DO Work Phone: [facility] [employer] 07-09-2025 20:14-0400 Respiratory rate 22 /min Jacqueline Orozco DO Work Phone: [facility] [employer] 07-09-2025 19:50-0400 Body height 165.1 cm Jacqueline Orozco DO Work Phone: [facility] [employer] 06-14-2025 11:12-0400 Body height 165.1 cm Serafin Taylor DO Work Phone: [facility] [employer] 06-14-2025 11:12-0400 Body mass index (BMI) [Ratio] 38.11 kg/m2 Serafin Onofreert DO Work Phone: [facility] [employer] 06-14-2025 11:12-0400 Body weight 103.87 kg Serafin Onofreert DO Work Phone: [facility] [employer] 06-14-2025 11:12-0400 Diastolic blood pressure 85 mm[Hg] Serafin Mellert DO Work Phone: [facility] [employer] 06-14-2025 11:12-0400 Heart rate 82 /min Serafin Onofreert DO Work Phone: [facility] [employer] 06-14-2025 11:12-0400 SaO2% (BldA) [Mass fraction] 100 % Serafin Mellert DO Work Phone: [facility] [employer] 06-14-2025 11:12-0400 Systolic blood pressure 131 mm[Hg] Serafin Mellert DO Work Phone: [facility] [employer] 06-12-2025 08:08-0400 Body height 165.1 cm Heath Flores MD Work Phone: [facility] 06-12-2025 08:08-0400 Body mass index (BMI) [Ratio] 38.27 kg/m2 Heath Flores MD Work Phone: [facility] 06-12-2025 08:08-0400 Body weight 104.33 kg Heath Flores MD Work Phone: [facility] 06-12-2025 08:08-0400 Diastolic blood pressure 62 mm[Hg] Heath Flores MD Work Phone: [facility] 06-12-2025 08:08-0400 Heart rate 78 /min Heath Flores MD Work Phone: [facility] 06-12-2025 08:08-0400 Respiratory rate 17 /min Heath Flores MD Work Phone: [facility] 06-12-2025 08:08-0400 SaO2% (BldA) [Mass fraction] 99 % Heath Flores MD Work Phone: [facility] 06-12-2025 08:08-0400 Systolic blood pressure 122 mm[Hg] Heath Flores MD Work Phone: [facility] 05-24-2025 05:12-0400 Body temperature 97.9 [degF] Susan Ratliff MD Work Phone: [facility] [employer] 05-24-2025 05:12-0400 Diastolic blood pressure 76 mm[Hg] Susan Ratliff MD Work Phone: [facility] [employer] 05-24-2025 05:12-0400 Heart rate 63 /min Susan Ratliff MD Work Phone: [facility] [employer] 05-24-2025 05:12-0400 Respiratory rate 16 /min Susan Ratliff MD Work Phone: [facility] [employer] 05-24-2025 05:12-0400 SaO2% (BldA) [Mass fraction] 100 % Susan Ratliff MD Work Phone: [facility] [employer] 05-24-2025 05:12-0400 Systolic blood pressure 133 mm[Hg] Susan Ratliff MD Work Phone: [facility] [employer] 05-20-2025 16:04-0400 Body height 160 cm Susan Ratliff MD Work Phone: [facility] [facility] [employer] 05-20-2025 16:04-0400 Body mass index (BMI) [Ratio] 38.97 kg/m2 Susan Ratliff MD Work Phone: [facility] [facility] [employer] 05-20-2025 16:04-0400 Body weight 99.79 kg Susan Ratliff MD Work Phone: [facility] [facility] [employer] 05-11-2025 07:42-0400 Body temperature 97.81 [degF] Donald Mueller Jr., DO Work Phone: [facility] 05-11-2025 07:42-0400 Diastolic blood pressure 82 mm[Hg] Donald Mueller Jr., DO Work Phone: [facility] 05-11-2025 07:42-0400 Heart rate 70 /min Donald Mueller Jr., DO Work Phone: [employer] 05-11-2025 07:42-0400 SaO2% (BldA) [Mass fraction] 97 % Donald Mueller Jr., DO Work Phone: [employer] 05-11-2025 07:42-0400 Systolic blood pressure 121 mm[Hg] Donald Mueller Jr., DO Work Phone: [employer] 05-10-2025 20:11-0400 Respiratory rate 16 /min Donald Mueller Jr., DO Work Phone: [facility] 05-09-2025 17:33-0400 Body height 165.1 cm Donald Mueller Jr., DO Work Phone: [facility] 05-09-2025 17:33-0400 Body mass index (BMI) [Ratio] 36.61 kg/m2 Donald Mueller Jr., DO Work Phone: [facility] 05-09-2025 17:33-0400 Body weight 99.79 kg Donald Mueller Jr., DO Work Phone: [facility] [employer] 02-22-2025 08:14-0400 Body temperature 98.1 [degF] Kostas Cunha MD Work Phone: [facility] [employer] 02-22-2025 08:14-0400 Diastolic blood pressure 76 mm[Hg] Kostas Cunha MD Work Phone: [facility] [employer] 02-22-2025 08:14-0400 Heart rate 70 /min Kostas Cunha MD Work Phone: [facility] [employer] 02-22-2025 08:14-0400 Respiratory rate 15 /min Kostas Cunha MD Work Phone: [facility] [employer] 02-22-2025 08:14-0400 SaO2% (BldA) [Mass fraction] 99 % Kostas Cunha MD Work Phone: [facility] [employer] 02-22-2025 08:14-0400 Systolic blood pressure 115 mm[Hg] Kostas Cunha MD Work Phone: [facility] [employer] 02-21-2025 05:35-0400 Body height 165.1 cm Kostas Cunha MD Work Phone: [facility] [employer] 02-21-2025 05:35-0400 Body mass index (BMI) [Ratio] 30.79 kg/m2 Kostas Cunha MD Work Phone: [facility] [employer] 02-21-2025 05:35-0400 Body weight 83.92 kg Kostas Cunha MD Work Phone: [facility] [employer] 12-25-2024 20:23-0400 Body temperature 98.2 [degF] Tash Cervantes DO Work Phone: [facility] [employer] 12-25-2024 20:23-0400 Diastolic blood pressure 85 mm[Hg] Tash Cervantes DO Work Phone: [facility] [employer] 12-25-2024 20:23-0400 Heart rate 86 /min Tash Cervantes DO Work Phone: [facility] [employer] 12-25-2024 20:23-0400 Respiratory rate 16 /min Tash Cisco DO Work Phone: [employer] 12-25-2024 20:23-0400 SaO2% (BldA) [Mass fraction] 99 % Tash Cervantes DO Work Phone: [facility] [employer] 12-25-2024 20:23-0400 Systolic blood pressure 138 mm[Hg] Tash Cervantes DO Work Phone: [facility] [employer] 12-25-2024 15:18-0400 Body height 165.1 cm Tash Cervantes DO Work Phone: [facility] [employer] 12-25-2024 15:18-0400 Body mass index (BMI) [Ratio] 35.78 kg/m2 Tash Cervantes DO Work Phone: [facility] [employer] 12-25-2024 15:18-0400 Body weight 97.52 kg Tash Cervantes DO Work Phone: [facility] [employer] 11-23-2024 12:30-0500 Diastolic blood pressure 80 mm[Hg] Corky Plummer MD Work Phone: [facility] 11-23-2024 12:30-0500 Heart rate 64 /min Corky Plummer MD Work Phone: [facility] 11-23-2024 12:30-0500 Respiratory rate 16 /min Corky Plummer MD Work Phone: [facility] 11-23-2024 12:30-0500 SaO2% (BldA) [Mass fraction] 97 % Corky Plummer MD Work Phone: [facility] 11-23-2024 12:30-0500 Systolic blood pressure 122 mm[Hg] Corky Plummer MD Work Phone: [facility] 11-23-2024 10:10-0500 Body temperature 98.4 [degF] Corky Plummer MD Work Phone: [facility] 11-23-2024 07:11-0500 Body height 165.1 cm Corky Plummer MD Work Phone: [facility] [facility] [employer] 11-23-2024 07:11-0500 Body mass index (BMI) [Ratio] 30.45 kg/m2 Corky Plummer MD Work Phone: [facility] [employer] 11-23-2024 07:11-0500 Body weight 83.01 kg Corky Plummer MD Work Phone: [facility] [employer] 11-20-2024 10:45-0500 Diastolic blood pressure 72 mm[Hg] Za Chey PA-C Work Phone: [facility] [employer] 11-20-2024 10:45-0500 Heart rate 72 /min Za Chey PA-C Work Phone: [facility] [employer] 11-20-2024 10:45-0500 Respiratory rate 20 /min Za Chey PA-C Work Phone: [facility] [employer] 11-20-2024 10:45-0500 SaO2% (BldA) [Mass fraction] 100 % Za Chey PA-C Work Phone: [facility] [employer] 11-20-2024 10:45-0500 Systolic blood pressure 119 mm[Hg] Za Chey PA-C Work Phone: [facility] [employer] 11-20-2024 07:24-0500 Body height 165.1 cm Za Chey PA-C Work Phone: [facility] [employer] 11-20-2024 07:24-0500 Body mass index (BMI) [Ratio] 37.11 kg/m2 Za Chey PA-C Work Phone: [facility] [employer] 11-20-2024 07:24-0500 Body temperature 97.39 [degF] Za Chey PA-C Work Phone: [facility] [employer] 11-20-2024 07:24-0500 Body weight 101.15 kg Za Chey PA-C Work Phone: [facility] [employer] 10-05-2024 08:53-0500 Diastolic blood pressure 84 mm[Hg] Tara Marroquin PA-C Work Phone: [facility] [employer] 10-05-2024 08:53-0500 Heart rate 75 /min Tara Marroquin PA-C Work Phone: [facility] [employer] 10-05-2024 08:53-0500 Respiratory rate 16 /min Tara Marroquin PA-C Work Phone: [facility] [employer] 10-05-2024 08:53-0500 SaO2% (BldA) [Mass fraction] 98 % Tara Garciaey PA-C Work Phone: [facility] [employer] 10-05-2024 08:53-0500 Systolic blood pressure 120 mm[Hg] Tara Marroquin PA-C Work Phone: [facility] [employer] 10-04-2024 10:45-0500 Diastolic blood pressure 68 mm[Hg] Za Chey PA-C Work Phone: [facility] [employer] 10-04-2024 10:45-0500 Heart rate 76 /min Za Chey PA-C Work Phone: [facility] [employer] 10-04-2024 10:45-0500 SaO2% (BldA) [Mass fraction] 99 % Za Chey PA-C Work Phone: [facility] [employer] 10-04-2024 10:45-0500 Systolic blood pressure 112 mm[Hg] Za Chey PA-C Work Phone: [facility] [employer] 10-04-2024 10:30-0500 Respiratory rate 16 /min Za Chey PA-C Work Phone: [facility] [employer] 10-04-2024 09:45-0500 Body temperature 97.3 [degF] Za Chey PA-C Work Phone: [facility] [employer] 09-28-2024 11:18-0500 Body height 165.1 cm [employer] Work Phone: [facility] [employer] 09-28-2024 11:18-0500 Body mass index (BMI) [Ratio] 37.26 kg/m2 [facility] Work Phone: [employer] 09-28-2024 11:18-0500 Body temperature 97.59 [degF] Serafin Mellert DO Work Phone: [facility] [employer] 09-28-2024 11:18-0500 Body weight 101.56 kg Serafin Mellert DO Work Phone: [facility] [employer] 09-28-2024 11:18-0500 Diastolic blood pressure 82 mm[Hg] Serafin Mellert DO Work Phone: [facility] [employer] 09-28-2024 11:18-0500 Heart rate 89 /min Serafin Mellert DO Work Phone: [facility] [employer] 09-28-2024 11:18-0500 Systolic blood pressure 120 mm[Hg] Serafin Mellert DO Work Phone: [facility] [employer] 09-14-2024 08:44-0500 Body temperature 97.2 [degF] Celina Moura MD Work Phone: [facility] [employer] 09-14-2024 08:44-0500 Diastolic blood pressure 75 mm[Hg] Celina Moura MD Work Phone: [facility] 09-14-2024 08:44-0500 Heart rate 96 /min Celina Moura MD Work Phone: [facility] [facility] [employer] 09-14-2024 08:44-0500 SaO2% (BldA) [Mass fraction] 99 % Celina Moura MD Work Phone: [facility] [facility] [employer] 09-14-2024 08:44-0500 Systolic blood pressure 128 mm[Hg] Celina Moura MD Work Phone: [facility] 09-07-2024 11:30-0500 Diastolic blood pressure 68 mm[Hg] Serafin Mellert DO Work Phone: [facility] [employer] 09-07-2024 11:30-0500 Heart rate 86 /min Serafin Mellert DO Work Phone: [facility] 09-07-2024 11:30-0500 SaO2% (BldA) [Mass fraction] 98 % Serafin Mellert DO Work Phone: [facility] 09-07-2024 11:30-0500 Systolic blood pressure 102 mm[Hg] Serafin Taylor DO [facility] 09-07-2024 11:09-0500 Body temperature 96.91 [degF] Serafin Taylor DO Work Phone: [facility] 09-07-2024 11:00-0500 Respiratory rate 12 /min Serafin Taylor DO Work Phone: [facility] 09-07-2024 08:15-0500 Body height 165.1 cm Serafin Taylor DO Work Phone: [facility] [employer] 09-07-2024 08:15-0500 Body mass index (BMI) [Ratio] 35.94 kg/m2 Serafin Taylor DO Work Phone: [facility] 09-07-2024 08:15-0500 Body weight 97.98 kg Serafin Taylor DO Work Phone: [facility] 09-02-2024 10:55-0500 Body mass index (BMI) [Ratio] 35.94 kg/m2 Donald Mueller Jr., DO Work Phone: [facility] [employer] 09-02-2024 10:55-0500 Body temperature 98.01 [degF] Donald Mueller Jr., DO Work Phone: [facility] 09-02-2024 10:55-0500 Body weight 97.98 kg Donald Mueller Jr., DO Work Phone: [facility] [employer] 09-02-2024 10:55-0500 Diastolic blood pressure 99 mm[Hg] Donald Mueller Jr., DO Work Phone: [facility] [employer] 09-02-2024 10:55-0500 Heart rate 98 /min Donald Mueller Jr., DO Work Phone: [facility] [employer] 09-02-2024 10:55-0500 Respiratory rate 18 /min Donald Mueller Jr., DO Work Phone: [facility] 09-02-2024 10:55-0500 SaO2% (BldA) [Mass fraction] 99 % Donald Mueller Jr., DO Work Phone: [facility] [employer] 09-02-2024 10:55-0500 Systolic blood pressure 143 mm[Hg] Donald Mueller Jr., DO Work Phone: [facility] 08-31-2024 14:06-0500 Body height 165.1 cm Serafin Taylor DO Work Phone: [facility] 08-31-2024 14:06-0500 Body mass index (BMI) [Ratio] 38.16 kg/m2 Serafin [employer] DO Work Phone: [facility] 08-31-2024 14:06-0500 Body temperature 97.39 [degF] Serafin [employer] DO Work Phone: [facility] 08-31-2024 14:06-0500 Body weight 104.01 kg Serafin [employer] DO Work Phone: [facility] 08-31-2024 14:06-0500 Diastolic blood pressure 84 mm[Hg] Serafin Taylor DO Work Phone: [facility] 08-31-2024 14:06-0500 Heart rate 91 /min Serafin [employer] DO Work Phone: [facility] 08-31-2024 14:06-0500 Systolic blood pressure 123 mm[Hg] Serafin Taylor DO Work Phone: [facility] 08-24-2024 10:29-0500 Body height 165.1 cm Serafin [employer] DO Work Phone: [facility] 08-24-2024 10:29-0500 Body mass index (BMI) [Ratio] 36.04 kg/m2 Serafin [employer] DO Work Phone: [facility] 08-24-2024 10:29-0500 Body temperature 97.81 [degF] Serafin Kleerert DO Work Phone: [facility] [employer] 08-24-2024 10:29-0500 Body weight 98.25 kg Serafin Mellert DO Work Phone: [facility] [employer] 08-24-2024 10:29-0500 Diastolic blood pressure 89 mm[Hg] Serafin Mellert DO Work Phone: [facility] [employer] 08-24-2024 10:29-0500 Heart rate 104 /min Serafin Mellert DO Work Phone: [facility] [employer] 08-24-2024 10:29-0500 Systolic blood pressure 127 mm[Hg] Serafin Onofreert DO Work Phone: [facility] [employer] 08-13-2024 11:08-0500 Heart rate 84 /min Heath Pan MD Work Phone: [facility] [employer] 08-13-2024 11:08-0500 Respiratory rate 16 /min Heath Pan MD Work Phone: [facility] [employer] 08-13-2024 11:08-0500 SaO2% (BldA) [Mass fraction] 97 % Heath Pan MD Work Phone: [facility] [employer] 08-13-2024 07:35-0500 Body temperature 98.1 [degF] Heath Pan MD Work Phone: [facility] [employer] 08-13-2024 07:35-0500 Diastolic blood pressure 87 mm[Hg] Heath Pan MD Work Phone: [facility] [employer] 08-13-2024 07:35-0500 Systolic blood pressure 114 mm[Hg] Heath Pan MD Work Phone: [facility] [employer] 08-07-2024 02:22-0400 Body height 165.1 cm Heath Pan MD Work Phone: [facility] [employer] 08-07-2024 02:22-0400 Body mass index (BMI) [Ratio] 36.61 kg/m2 Heath Pan MD Work Phone: [facility] [employer] 08-07-2024 02:22-0400 Body weight 99.79 kg Heath Pan MD Work Phone: [facility] [employer] 07-08-2024 10:33-0400 Diastolic blood pressure 84 mm[Hg] Vishal Garcia MD Work Phone: [facility] [employer] 07-08-2024 10:33-0400 Heart rate 60 /min Vishal Garcia MD Work Phone: [facility] [employer] 07-08-2024 10:33-0400 Respiratory rate 16 /min Vishal Garcia MD Work Phone: [facility] [employer] 07-08-2024 10:33-0400 SaO2% (BldA) [Mass fraction] 100 % Vishal Garcia MD Work Phone: [facility] [employer] 07-08-2024 10:33-0400 Systolic blood pressure 121 mm[Hg] Vishal Garcia MD Work Phone: [facility] [employer] 07-08-2024 08:29-0400 Body mass index (BMI) [Ratio] 37.28 kg/m2 Vishal Garcia MD Work Phone: [facility] [employer] 07-08-2024 08:29-0400 Body temperature 97.81 [degF] Vishal Garcia MD Work Phone: [facility] [employer] 07-08-2024 08:29-0400 Body weight 101.61 kg Vishal Garcia MD Work Phone: [facility] [employer] 06-13-2024 13:33-0400 Body height 165.1 cm [employer] DO Work Phone: [facility] [employer] 06-13-2024 13:33-0400 Body mass index (BMI) [Ratio] 37.87 kg/m2 [employer] DO Work Phone: [facility] [employer] 06-13-2024 13:33-0400 Body temperature 98.29 [degF] [employer] DO Work Phone: [facility] [employer] 06-13-2024 13:33-0400 Body weight 103.24 kg Serafin Taylor DO Work Phone: [facility] [employer] 06-13-2024 13:33-0400 Diastolic blood pressure 84 mm[Hg] Serafin Taylor DO Work Phone: [facility] [employer] 06-13-2024 13:33-0400 Heart rate 96 /min Serafin Taylor DO Work Phone: [facility] [employer] 06-13-2024 13:33-0400 Systolic blood pressure 126 mm[Hg] Serafin Taylor DO Work Phone: [facility] [employer] 05-04-2024 09:03-0400 Body height 165.1 cm Nanci Fey CHEMICAL OPERATIONS SPECIALIST.WIRE INSERTER Work Phone: [facility] 05-04-2024 09:03-0400 Body mass index (BMI) [Ratio] 38.97 kg/m2 Nanci Fey CHEMICAL OPERATIONS SPECIALIST.WIRE INSERTER Work Phone: [facility] 05-04-2024 09:03-0400 Body temperature 97.7 [degF] Nanci Fey CHEMICAL OPERATIONS SPECIALIST.WIRE INSERTER Work Phone: [facility] 05-04-2024 09:03-0400 Body weight 106.23 kg Nanci Fey CHEMICAL OPERATIONS SPECIALIST.WIRE INSERTER Work Phone: [facility] 05-04-2024 09:03-0400 Diastolic blood pressure 71 mm[Hg] Nanci Fey CHEMICAL OPERATIONS SPECIALIST.WIRE INSERTER Work Phone: [facility] 05-04-2024 09:03-0400 Heart rate 90 /min Nanci Fey CHEMICAL OPERATIONS SPECIALIST.WIRE INSERTER Work Phone: [facility] 05-04-2024 09:03-0400 Respiratory rate 18 /min Nanci Fey CHEMICAL OPERATIONS SPECIALIST.WIRE INSERTER Work Phone: [facility] 05-04-2024 09:03-0400 SaO2% (BldA) [Mass fraction] 99 % Nanci Fey CHEMICAL OPERATIONS SPECIALIST.WIRE INSERTER Work Phone: [facility] 05-04-2024 09:03-0400 Systolic blood pressure 114 mm[Hg] Nanci Diaz GINNY Work Phone: [facility] 04-26-2024 05:47-0400 Body temperature 97 [degF] Ahmet Nesheim DO Work Phone: [employer] 04-26-2024 05:47-0400 Diastolic blood pressure 78 mm[Hg] Ahmet Nesheim DO Work Phone: [facility] 04-26-2024 05:47-0400 Heart rate 66 /min Ahmte Nesheim DO Work Phone: [facility] 04-26-2024 05:47-0400 Respiratory rate 20 /min Ahmet Nesheim DO Work Phone: [facility] 04-26-2024 05:47-0400 SaO2% (BldA) [Mass fraction] 100 % Ahmet Nesheim DO Work Phone: [facility] 04-26-2024 05:47-0400 Systolic blood pressure 124 mm[Hg] Ahmet Nesheim DO Work Phone: [facility] 04-24-2024 10:20-0400 Body height 165.1 cm Ahmet Nesheim DO Work Phone: [facility] 04-24-2024 10:20-0400 Body mass index (BMI) [Ratio] 40.44 kg/m2 Ahmet Nesheim DO Work Phone: [facility] 04-24-2024 10:20-0400 Body weight 110.22 kg Ahmet Nesheim DO Work Phone: [facility] 04-15-2024 12:47-0400 Diastolic blood pressure 73 mm[Hg] Marvin Real MD Work Phone: [facility] 04-15-2024 12:47-0400 Heart rate 88 /min Marvin Real MD Work Phone: [facility] 04-15-2024 12:47-0400 Respiratory rate 16 /min Marvin Real MD Work Phone: [facility] 04-15-2024 12:47-0400 SaO2% (BldA) [Mass fraction] 100 % Marvin Real MD Work Phone: [facility] [employer] 04-15-2024 12:47-0400 Systolic blood pressure 113 mm[Hg] Marvin Real MD Work Phone: [facility] [employer] 04-15-2024 09:36-0400 Body mass index (BMI) [Ratio] 40.77 kg/m2 Marvin Real MD Work Phone: [facility] [employer] 04-15-2024 09:36-0400 Body temperature 98.4 [degF] Marvin Real MD Work Phone: [employer] 04-15-2024 09:36-0400 Body weight 111.13 kg Marvin Real MD Work Phone: [facility] [employer] 04-13-2024 05:33-0400 Body temperature 97 [degF] Shaista Ahn MD Work Phone: [employer] 04-13-2024 05:33-0400 Diastolic blood pressure 63 mm[Hg] Shaista Ahn MD Work Phone: [employer] 04-13-2024 05:33-0400 Heart rate 53 /min Shaista Ahn MD Work Phone: [employer] 04-13-2024 05:33-0400 Respiratory rate 18 /min Shaista Ahn MD Work Phone: [employer] 04-13-2024 05:33-0400 SaO2% (BldA) [Mass fraction] 98 % Shaista Ahn MD Work Phone: [employer] 04-13-2024 05:33-0400 Systolic blood pressure 123 mm[Hg] Shaista Ahn MD Work Phone: [employer] 04-10-2024 07:34-0400 Body mass index (BMI) [Ratio] 40.77 kg/m2 Shaista Ahn MD Work Phone: [employer] 04-10-2024 07:34-0400 Body weight 111.13 kg Shaista Ahn MD Work Phone: [facility] [employer] 04-03-2024 11:25-0400 Body height 165.1 cm Neela Steven MD Work Phone: [facility] [employer] 04-03-2024 11:25-0400 Body mass index (BMI) [Ratio] 41.74 kg/m2 Neela Steven MD Work Phone: [facility] [employer] 04-03-2024 11:25-0400 Body weight 113.76 kg Neela Steven MD Work Phone: [facility] [employer] 04-03-2024 11:25-0400 Diastolic blood pressure 83 mm[Hg] Neela Steven MD Work Phone: [facility] [employer] 04-03-2024 11:25-0400 Heart rate 80 /min Neela Steven MD Work Phone: [facility] [employer] 04-03-2024 11:25-0400 Systolic blood pressure 130 mm[Hg] Neela Steven MD Work Phone: [facility] [employer] 03-06-2024 14:37-0400 Body height 165.1 cm Neela Steven MD Work Phone: [facility] [employer] 03-06-2024 14:37-0400 Body mass index (BMI) [Ratio] 42.53 kg/m2 Neela Steven MD Work Phone: [facility] [employer] 03-06-2024 14:37-0400 Body weight 115.94 kg Neela Steven MD Work Phone: [facility] [employer] 03-06-2024 14:37-0400 Diastolic blood pressure 80 mm[Hg] Neela Steven MD Work Phone: [facility] [employer] 03-06-2024 14:37-0400 Heart rate 76 /min Neela Steven MD Work Phone: [facility] [employer] 03-06-2024 14:37-0400 Systolic blood pressure 123 mm[Hg] Neela Steven MD Work Phone: [facility] [employer] 01-30-2024 14:10-0400 Body height 165.1 cm Neela Steven MD Work Phone: [employer] 01-30-2024 14:10-0400 Body mass index (BMI) [Ratio] 42.53 kg/m2 Neela Steven MD Work Phone: [facility] [employer] 01-30-2024 14:10-0400 Body weight 115.94 kg Neela Steven MD Work Phone: [facility] [employer] 01-30-2024 14:10-0400 Diastolic blood pressure 76 mm[Hg] Neela Steven MD Work Phone: [facility] [employer] 01-30-2024 14:10-0400 Heart rate 78 /min Neela Steven MD Work Phone: [facility] [employer] 01-30-2024 14:10-0400 Systolic blood pressure 124 mm[Hg] Neela Steven MD Work Phone: [facility] [employer] 12-29-2023 13:28-0400 Body temperature 96.8 [degF] Satish Shad DO Work Phone: [facility] [employer] 12-29-2023 13:28-0400 Diastolic blood pressure 73 mm[Hg] Satish Shad DO Work Phone: [facility] [employer] 12-29-2023 13:28-0400 Heart rate 73 /min Satish Shad DO Work Phone: [facility] [employer] 12-29-2023 13:28-0400 Respiratory rate 14 /min Satish Shad DO Work Phone: [facility] [employer] 12-29-2023 13:28-0400 SaO2% (BldA) [Mass fraction] 99 % Satish Shad DO Work Phone: [employer] 12-29-2023 13:28-0400 Systolic blood pressure 118 mm[Hg] Satish Shad DO Work Phone: [employer] 12-29-2023 13:25-0400 Body height 165.1 cm Satish Shad DO Work Phone: [facility] [employer] 12-29-2023 13:25-0400 Body mass index (BMI) [Ratio] 43.1 kg/m2 Satish Shad DO Work Phone: [facility] [employer] 12-29-2023 13:25-0400 Body weight 117.48 kg Satish Shad DO Work Phone: [facility] [employer] 12-29-2023 07:24-0400 Body height 165.1 cm Neela Steven MD Work Phone: [facility] [employer] 12-29-2023 07:24-0400 Body mass index (BMI) [Ratio] 42.13 kg/m2 Neela Steven MD Work Phone: [employer] 12-29-2023 07:24-0400 Body weight 114.85 kg Neela Steven MD Work Phone: [facility] [employer] 12-29-2023 07:24-0400 Diastolic blood pressure 77 mm[Hg] Neela Steven MD Work Phone: [facility] [employer] 12-29-2023 07:24-0400 Heart rate 92 /min Neela Steven MD Work Phone: [employer] 12-29-2023 07:24-0400 Systolic blood pressure 115 mm[Hg] Neela Steven MD Work Phone: [facility] [employer] 11-29-2023 08:49-0500 Diastolic blood pressure 79 mm[Hg] Serafin Mellert DO Work Phone: [employer] 11-29-2023 08:49-0500 Heart rate 66 /min Serafin Mellert DO Work Phone: [employer] 11-29-2023 08:49-0500 Respiratory rate 16 /min Serafin Mellert DO Work Phone: [employer] 11-29-2023 08:49-0500 SaO2% (BldA) [Mass fraction] 98 % Serafin Mellert DO Work Phone: [employer] 11-29-2023 08:49-0500 Systolic blood pressure 139 mm[Hg] Serafin Mellert DO Work Phone: [facility] [employer] 11-29-2023 08:30-0500 Body temperature 97 [degF] Serafin Mellert DO Work Phone: [facility] [employer] 11-29-2023 07:07-0500 Body height 165.1 cm Serafin Mellert DO Work Phone: [facility] [employer] 11-29-2023 07:07-0500 Body mass index (BMI) [Ratio] 39.44 kg/m2 Serafin Mellert DO Work Phone: [facility] [employer] 11-29-2023 07:07-0500 Body weight 107.5 kg Serafin Mellert DO Work Phone: [facility] [employer] 11-15-2023 13:21-0500 Body height 166.4 cm Serafin Mellert DO Work Phone: [facility] [employer] 11-15-2023 13:21-0500 Body mass index (BMI) [Ratio] 40.54 kg/m2 Serafin Mellert DO Work Phone: [facility] [employer] 11-15-2023 13:21-0500 Body temperature 98.49 [degF] Serafin Mellert DO Work Phone: [facility] [employer] 11-15-2023 13:21-0500 Body weight 112.22 kg Serafin Mellert DO Work Phone: [facility] [employer] 11-15-2023 13:21-0500 Diastolic blood pressure 78 mm[Hg] Serafin Mellert DO Work Phone: [facility] [employer] 11-15-2023 13:21-0500 Heart rate 77 /min Serafin Mellert DO Work Phone: [facility] [employer] 11-15-2023 13:21-0500 Respiratory rate 16 /min Serafin Mellert DO Work Phone: [facility] [employer] 11-15-2023 13:21-0500 Systolic blood pressure 123 mm[Hg] Serafin Mellert DO Work Phone: [facility] [employer] 11-13-2023 11:50-0500 Diastolic blood pressure 68 mm[Hg] Alan Borjas DO Work Phone: [facility] 11-13-2023 11:50-0500 Heart rate 64 /min Alan Borjas DO Work Phone: [employer] 11-13-2023 11:50-0500 Respiratory rate 16 /min Alan Borjas DO Work Phone: [facility] 11-13-2023 11:50-0500 SaO2% (BldA) [Mass fraction] 98 % Alan Borjas DO [facility] 11-13-2023 11:50-0500 Systolic blood pressure 110 mm[Hg] Alan Borjas DO Work Phone: [facility] [employer] 11-13-2023 09:23-0500 Body mass index (BMI) [Ratio] 39.94 kg/m2 Alan Borjas DO Work Phone: [facility] 11-13-2023 09:23-0500 Body temperature 98.2 [degF] Alan Borjas DO Work Phone: [facility] [employer] 11-13-2023 09:23-0500 Body weight 108.86 kg Alan Borjas DO Work Phone: [employer] 10-20-2023 07:38-0500 Body temperature 97.39 [degF] Heath Lim MD Work Phone: [facility] 10-20-2023 07:38-0500 Diastolic blood pressure 65 mm[Hg] Heath Lim MD Work Phone: [facility] 10-20-2023 07:38-0500 Heart rate 62 /min Heath Lim MD Work Phone: [facility] 10-20-2023 07:38-0500 Respiratory rate 18 /min Heath Lim MD Work Phone: [facility] 10-20-2023 07:38-0500 SaO2% (BldA) [Mass fraction] 99 % Heath Lim MD Work Phone: [employer] 10-20-2023 07:38-0500 Systolic blood pressure 96 mm[Hg] Heath Lim MD Work Phone: [facility] [employer] 10-19-2023 10:26-0500 Body mass index (BMI) [Ratio] 39.11 kg/m2 Heath Lmi MD Work Phone: [facility] [employer] 10-19-2023 10:26-0500 Body weight 106.59 kg Heath Lim MD Work Phone: [facility] [employer] 09-14-2023 20:43-0500 Body temperature 98.1 [degF] Celina Hendrix MD Work Phone: [facility] [employer] 09-14-2023 20:43-0500 Diastolic blood pressure 76 mm[Hg] Celina Hendrix MD Work Phone: [facility] [employer] 09-14-2023 20:43-0500 Heart rate 76 /min Celina Hendrix MD Work Phone: [facility] [employer] 09-14-2023 20:43-0500 Respiratory rate 16 /min Celina Hendrix MD Work Phone: [facility] [employer] 09-14-2023 20:43-0500 SaO2% (BldA) [Mass fraction] 96 % Celina Hendrix MD Work Phone: [facility] [employer] 09-14-2023 20:43-0500 Systolic blood pressure 125 mm[Hg] Celina Hendrix MD Work Phone: [facility] [employer] 09-13-2023 19:42-0500 Body height 165.1 cm Celina Hendrix MD Work Phone: [facility] [employer] 09-13-2023 19:42-0500 Body mass index (BMI) [Ratio] 40.91 kg/m2 Celina Hendrix MD Work Phone: [facility] [employer] 09-13-2023 19:42-0500 Body weight 111.5 kg Celina Hendrix MD Work Phone: [facility] [employer] 06-30-2023 10:13-0400 Body temperature 97.5 [degF] Neri Tanner MD Work Phone: 9(831)858-862182 [address] 06-30-2023 10:13-0400 Diastolic blood pressure 71 mm[Hg] Neri Tanner MD Work Phone: 6(981)025-878082 [address] 06-30-2023 10:13-0400 Heart rate 68 /min Neri Tanner MD Work Phone: 4(480)414-231382 [address] 06-30-2023 10:13-0400 Respiratory rate 20 /min Neri Tanner MD Work Phone: 4(791)560-776340 [place] [address] 06-30-2023 10:13-0400 SaO2% (BldA) [Mass fraction] 98 % Neri Tanner MD Work Phone: 1(304)638-272682 [address] 06-30-2023 10:13-0400 Systolic blood pressure 122 mm[Hg] Neri Tanner MD Work Phone: 7(628)706-461740 [place] [address] 06-28-2023 22:03-0400 Body height 165.1 cm Neri Tanner MD Work Phone: 3(654)773-083740 [place] [address] 06-28-2023 22:03-0400 Body mass index (BMI) [Ratio] 40.77 kg/m2 Neri Tanner MD Work Phone: 5(909)[phone] [address] 06-28-2023 22:03-0400 Body weight 111.13 kg Neri Tanner MD Work Phone: 9(989)997-355540 [place] [address] 03-08-2023 04:23-0400 Diastolic blood pressure 60 mm[Hg] No Pcp Required [facility] 03-08-2023 04:23-0400 Heart rate 81 /min No Pcp Required [facility] 03-08-2023 04:23-0400 Respiratory rate 18 /min No Pcp Required [facility] 03-08-2023 04:23-0400 SaO2% (BldA) [Mass fraction] 97 % No Pcp Required [facility] 03-08-2023 04:23-0400 Systolic blood pressure 102 mm[Hg] No Pcp Required [facility] 02-09-2023 11:51-0400 Body height 165.1 cm Tom Koehler MD Work Phone: [facility] 02-09-2023 11:51-0400 Body mass index (BMI) [Ratio] 39.11 kg/m2 Tom Koehler MD Work Phone: [facility] 02-09-2023 11:51-0400 Body weight 106.59 kg Tom Koehler MD Work Phone: [facility] 02-09-2023 11:51-0400 Diastolic blood pressure 68 mm[Hg] Tom Koehler MD Work Phone: [facility] 02-09-2023 11:51-0400 Heart rate 67 /min Tom Koehler MD Work Phone: [facility] 02-09-2023 11:51-0400 Systolic blood pressure 135 mm[Hg] Tom Koehler MD Work Phone: [facility] 10-29-2022 13:04-0500 Body temperature 98.2 [degF] Chad Lilly CHEMICAL OPERATIONS SPECIALIST.[employer]ER[employer] Work Phone: [facility] 10-29-2022 13:04-0500 Body weight 113.94 kg Chad Lilly CHEMICAL OPERATIONS SPECIALIST.[employer] Work Phone: [facility] 10-29-2022 13:04-0500 Diastolic blood pressure 88 mm[Hg] Chad Lilly CHEMICAL OPERATIONS SPECIALIST.[employer] Work Phone: [facility] 10-29-2022 13:04-0500 Heart rate 87 /min Chad Lilly CHEMICAL OPERATIONS SPECIALIST.[employer] Work Phone: [facility] 10-29-2022 13:04-0500 Respiratory rate 20 /min Chad Lilly CHEMICAL OPERATIONS SPECIALIST.[employer] Work Phone: [facility] 10-29-2022 13:04-0500 SaO2% (BldA) [Mass fraction] 97 % Chad Lilly AKIRA.[employer] Work Phone: [facility] 10-29-2022 13:04-0500 Systolic blood pressure 126 mm[Hg] Chad King AKIRA.[employer] Work Phone: [facility] 09-08-2022 04:07-0500 Diastolic blood pressure 71 mm[Hg] [facility] Work Phone: 09-08-2022 04:07-0500 Heart rate 84 /min [facility] Work Phone: 09-08-2022 04:07-0500 Respiratory rate 15 /min [facility] Work Phone: 09-08-2022 04:07-0500 SaO2% (BldA) [Mass fraction] 99 % [facility] Work Phone: 09-08-2022 04:07-0500 Systolic blood pressure 113 mm[Hg] [facility] Work Phone: 09-07-2022 20:45-0500 Body height 165.1 cm [facility] Work Phone: 09-07-2022 20:45-0500 Body mass index (BMI) [Ratio] 43.3 kg/m2 [facility] Work Phone: 09-07-2022 20:45-0500 Body temperature 98.6 [degF] [facility] Work Phone: 09-07-2022 20:45-0500 Body weight 118.2 kg [facility] Work Phone: 07-30-2022 14:16-0400 Body height 165.1 cm [facility] Work Phone: 07-30-2022 14:16-0400 Body mass index (BMI) [Ratio] 40.7 kg/m2 [facility] Work Phone: 07-30-2022 14:16-0400 Body temperature 97.6 [degF] [facility] Work Phone: 07-30-2022 14:16-0400 Body weight 111.13 kg [facility] Work Phone: 07-30-2022 14:16-0400 Diastolic blood pressure 81 mm[Hg] [facility] Work Phone: 07-30-2022 14:16-0400 Heart rate 79 /min [facility] Work Phone: 07-30-2022 14:16-0400 Respiratory rate 16 /min [facility] Work Phone: 07-30-2022 14:16-0400 SaO2% (BldA) [Mass fraction] 99 % [facility] Work Phone: 07-30-2022 14:16-0400 Systolic blood pressure 123 mm[Hg] [facility] Work Phone: 03-21-2022 02:17-0400 Diastolic blood pressure 70 mm[Hg] [facility] Work Phone: 03-21-2022 02:17-0400 Heart rate 65 /min [facility] Work Phone: 03-21-2022 02:17-0400 SaO2% (BldA) [Mass fraction] 97 % [facility] Work Phone: 03-21-2022 02:17-0400 Systolic blood pressure 124 mm[Hg] [facility] Work Phone: 03-20-2022 23:37-0400 Body height 165.1 cm [facility] Work Phone: 03-20-2022 23:37-0400 Body mass index (BMI) [Ratio] 46 kg/m2 [facility] Work Phone: 03-20-2022 23:37-0400 Body temperature 99.1 [degF] [facility] Work Phone: 03-20-2022 23:37-0400 Body weight 125.5 kg [facility] Work Phone: 03-20-2022 23:37-0400 Respiratory rate 20 /min [facility] Work Phone: 08-20-2021 13:48-0500 Body height 165.1 cm Jose Curtis MD Work Phone: [facility] 08-20-2021 13:48-0500 Body mass index (BMI) [Ratio] 51.92 kg/m2 Jose Curtis MD Work Phone: [facility] 08-20-2021 13:48-0500 Body weight 141.52 kg Jose Curtis MD Work Phone: [facility] 08-20-2021 13:48-0500 Diastolic blood pressure 82 mm[Hg] Jose Curtis MD Work Phone: [facility] 08-20-2021 13:48-0500 Heart rate 93 /min Jose Curtis MD Work Phone: [facility] 08-20-2021 13:48-0500 SaO2% (BldA) [Mass fraction] 95 % Jose Curtis MD Work Phone: [facility] 08-20-2021 13:48-0500 Systolic blood pressure 135 mm[Hg] Jose Curtis MD Work Phone: [facility] 03-17-2021 10:30-0400 Diastolic blood pressure 68 mm[Hg] Govind Graham MD Work Phone: [facility] 03-17-2021 10:30-0400 Heart rate 70 /min Govind Graham MD Work Phone: [facility] 03-17-2021 10:30-0400 Respiratory rate 16 /min Govind Graham MD Work Phone: [facility] 03-17-2021 10:30-0400 SaO2% (BldA) [Mass fraction] 97 % Govind Graham MD Work Phone: [facility] 03-17-2021 10:30-0400 Systolic blood pressure 122 mm[Hg] Govind Graham MD Work Phone: [facility] 03-17-2021 08:40-0400 Body height 165.1 cm Govind Graham MD Work Phone: [facility] 03-17-2021 08:40-0400 Body mass index (BMI) [Ratio] 48.09 kg/m2 Govind Graham MD Work Phone: [facility] 03-17-2021 08:40-0400 Body temperature 97.9 [degF] Govind Graham MD Work Phone: [facility] 03-17-2021 08:40-0400 Body weight 131.09 kg Govind Graham MD Work Phone: [facility] 09-01-2020 16:05-0500 BMI (Body Mass Index) 49.09 kg/m2 Mike Gahlawat [facility] Work Phone: 09-01-2020 16:05-0500 Body weight 133.81 kg Mike Gahlawat [facility] Work Phone: 09-01-2020 16:05-0500 BP Diastolic 82 mm[Hg] Mike Gahlawat [facility] Work Phone: 09-01-2020 16:05-0500 BP Systolic 140 mm[Hg] Mike Gahlawat [facility] Work Phone: 09-01-2020 16:05-0500 BSA (Body Surface Area) 2.33 m2 Mike Gahlawat [facility] Work Phone: 09-01-2020 16:05-0500 Height 165.1 cm Mike Gaelizt [facility] Work Phone: 02-28-2020 10:37-0400 BMI (Body Mass Index) 50.42 kg/m2 Mike Gahlawat [facility] Work Phone: 02-28-2020 10:37-0400 Body weight 137.44 kg Mike Gahlawat [facility] Work Phone: 02-28-2020 10:37-0400 BP Diastolic 80 mm[Hg] Mike Gahlawat [facility] Work Phone: 02-28-2020 10:37-0400 BP Systolic 122 mm[Hg] Mike Gahlawat [facility] Work Phone: 02-28-2020 10:37-0400 BSA (Body Surface Area) 2.36 m2 Mike Gahlawat [facility] Work Phone: 02-28-2020 10:37-0400 Height 165.1 cm Mike Gahlawat [facility] Work Phone: 02-28-2020 10:37-0400 Pulse (Heart Rate) 84 /min Mike [facility]lawat [facility] Work Phone: 07-28-2016 10:23-0400 BMI (Body Mass Index) 49.6 kg/m2 Heber Marcial MD [facility] Work Phone: 07-28-2016 10:23-0400 Weight 131.09 kg Heber Marcial MD [facility] Work Phone: 07-31-2013 14:37-0400 Body Temperature 99.5 [degF] Heber Marcial MD [facility] Work Phone: 07-31-2013 14:37-0400 BP Diastolic 83 mm[Hg] Heber Marcial MD [facility] Work Phone: 07-31-2013 14:37-0400 BP Systolic 126 mm[Hg] Heber Marcial MD [facility] Work Phone: 07-31-2013 14:37-0400 BSA (Body Surface Area) 2.1 m2 Heber Marcial MD [facility] Work Phone: 07-31-2013 14:37-0400 Height 162.56 cm Heber Marcial MD [facility] Work Phone: 07-31-2013 14:37-0400 Pulse (Heart Rate) 105 /min Heber Marcial MD [facility] Work Phone: 07-31-2013 14:37-0400 Respiratory Rate 16 /min Heber Marcial MD [facility] [employer] Work Phone: Encounters Encounter Date Encounter Type Care Provider Facility Start: 08-06-2025 End: 08-06-2025 ambulatory [facility] Start: 08-06-2025 End: 08-06-2025 Subsequent hospital visit by physician Serafin Taylor DO Work Phone: [facility] [address] Comment on above: Abdominal pain Start: 07-30-2025 End: 07-30-2025 Emergency department patient visit Regina Prince MD Work Phone: [facility] EMERGENCY DEPT Comment on above: Pain of upper abdome n (Primary Dx); Syncope and collapse Start: 07-18-2025 End: 07-18-2025 Admission to same day surgery center Za Guerrier PA-C Work Phone: [facility] [place] Start: 07-18-2025 End: 07-18-2025 ambulatory Za RICARDO-Simon Work Phone: [facility] [place] Start: 07-08-2025 End: 07-10-2025 ambulatory CELINA BARAJAS [facility] Start: 07-08-2025 End: 07-10-2025 Evaluation and management of inpatient Jacqueline Orozco DO Work Phone: [facility] Medical Unit 4N Comment on above: Generalized abdomina l pain (Primary Dx); Nausea and vomiting, unspecified vomiting type Start: 06-24-2025 End: 06-24-2025 Admission to same day surgery center Nanci Diaz APRN.CNP Work Phone: [facility] Comment on above: Surgery Start: 06-24-2025 End: 06-24-2025 ambulatory Nanci Diaz APRN.CNP Work Phone: [facility] Start: 06-20-2025 End: 06-20-2025 Refill Heath Flores MD Work Phone: Pain Management Comment on above: Refill Request Start: 06-14-2025 End: 06-14-2025 Office outpatient visit 25 minutes [employer] Work Phone: [facility] Advanced Laparoscopic [facility] Comment on above: Generalized abdomina l pain (Primary Dx); Abnormal CT of the abdomen; Recurrent hernia; Nausea and vomiting, unspecified vomiting type; Class 2 obesity due to excess calories without serious comorbidity with body mass index (BMI) of 38.0 to 38.9 in adult Start: 06-14-2025 End: 06-14-2025 [facility] Start: 06-12-2025 End: 06-12-2025 Office outpatient new 30 minutes Heath Flores MD Work Phone: Pain Management Comment on above: Chronic pain syndrom e (Primary Dx); Generalized abdominal pain; Chronic, continuous use of opioids; Myofascial pain syndrome Start: 06-12-2025 End: 06-12-2025 ambulatory HEATH FLORES Facility:[id number] Start: 06-10-2025 End: 06-10-2025 Emergency department patient visit LENNY LOPEZ MD [facility] Start: 05-23-2025 End: 05-23-2025 Telephone encounter Nanci Diaz APRN.CNP Work Phone: [facility] Comment on above: Patient Update Start: 05-21-2025 End: 05-21-2025 Telephone encounter Nanci Diaz APRN.CNP Work Phone: [facility] Comment on above: Forms ([facility]- disability form) Start: 05-20-2025 End: 05-24-2025 ambulatory GRAY GARCIA [facility] Start: 05-20-2025 End: 05-24-2025 Evaluation and management of inpatient Susan Ratliff MD Work Phone: [facility] Medical Surgical Unit MSU H5 Comment on above: Periumbilical abdomi nal pain (Primary Dx) Start: 05-10-2025 End: 05-10-2025 Telephone encounter Za Guerrier PA-C Work Phone: [facility] [place] Start: 05-09-2025 End: 05-11-2025 Evaluation and management of inpatient Donald Miki Mueller DO Work Phone: [facility] Medical Unit 4N Comment on above: Intractable abdomina l pain (Primary Dx); Ventral hernia without obstruction or gangrene; Abnormal CT of the abdomen Start: 05-09-2025 End: 05-11-2025 ambulatory Nanci Diaz APRN.WIRE INSER[employer] Work Phone: [facility] Start: 05-09-2025 End: 05-09-2025 Patient encounter procedure Nanci Diaz APRN.WIRE INSERTER Work Phone: [facility] Comment on above: Hernia Start: 04-29-2025 End: 04-29-2025 Follow-up encounter Nanci Diaz APRN.WIRE INSERTER Work Phone: [facility] Comment on above: Follow up Start: 04-29-2025 End: 04-29-2025 Telephone encounter Serafin Taylor DO Work Phone: [facility] [place] Comment on above: Other Start: 04-29-2025 End: 04-29-2025 Patient encounter procedure Nanci Diaz APRN.WIRE INSERTER Work Phone: [facility] Comment on above: Abdominal adhesions (Primary Dx); Nausea; Generalized abdominal pain Start: 04-29-2025 End: 04-29-2025 Telemedicine consultation with patient Nanci Diaz AKIRA.WIRE INSERTER Work Phone: [facility] Start: 04-29-2025 End: 04-29-2025 ambulatory Nanci Fey CHEMICAL OPERATIONS SPECIALIST.WIRE INSERTER Work Phone: [facility] Start: 04-29-2025 End: 04-29-2025 Emergency department patient visit PETE LAURENT [facility] Start: 04-19-2025 End: 04-19-2025 ambulatory Nanci Fey CHEMICAL OPERATIONS SPECIALIST.WIRE INSERTER Work Phone: [facility] Start: 04-19-2025 End: 04-19-2025 E-mail encounter from caregiver Nanci Diaz APRN.WIRE INSERTER Work Phone: [facility] Start: 04-19-2025 End: 04-19-2025 Patient encounter procedure Nanci Diaz CHEMICAL OPERATIONS SPECIALIST.WIRE INSERTER Work Phone: [facility] Comment on above: Tooth pain Appointment Request Start: 02-27-2025 ambulatory OTONIEL CASTELLON Facility:[facility] Start: 02-20-2025 End: 02-22-2025 ambulatory SERAFIN [facility] Start: 02-20-2025 End: 02-22-2025 Evaluation and management of inpatient Kostas Cunha MD Work Phone: [facility] Medical Unit 4N Comment on above: Intractable abdomina l pain (Primary Dx) Start: 02-19-2025 End: 02-19-2025 ambulatory Nanci Friasy CHEMICAL OPERATIONS SPECIALIST.WIRE INSERTER Work Phone: [facility] Start: 02-19-2025 End: 02-19-2025 Patient encounter procedure Nanci Emily CHEMICAL OPERATIONS SPECIALIST.WIRE INSERTER Work Phone: [facility] Comment on above: Stomach pain Start: 02-18-2025 End: 02-19-2025 E-mail encounter from caregiver Nanci Diaz APRN.WIRE INSERTER Work Phone: [facility] Start: 02-18-2025 End: 02-19-2025 Patient encounter procedure Nanci Diaz APRN.WIRE INSERTER Work Phone: [facility] Comment on above: Appointment Request Start: 12-25-2024 End: 12-25-2024 Emergency department patient visit Tash Cervantes Work Phone: [facility] [employer] Emergency Dept Comment on above: Abdominal pain, gene ralized (Primary Dx); Renal lesion Start: 12-25-2024 End: 12-25-2024 ambulatory Nanci Diaz APRN.WIRE INSERTER Work Phone: [facility] Start: 12-25-2024 End: 12-25-2024 Patient encounter procedure Nanci Diaz APRN.WIRE INSERTER Work Phone: [facility] Comment on above: Abdominal pain Start: 11-23-2024 End: 05-16-2025 ambulatory Kelsi Valencia RN [facility] Clinical Communication Start: 11-23-2024 End: 05-16-2025 Patient encounter procedure Kelsi Valencia RN [facility] Clinical Communication Start: 11-23-2024 End: 11-23-2024 Emergency department patient visit Corky Plummer MD Work Phone: [facility] [employer] Emergency Dept Comment on above: Generalized abdomina l pain (Primary Dx); Abdominal wall seroma, initial encounter Start: 11-21-2024 End: 11-21-2024 Telephone encounter Aye Nguyen RN [facility] Special Procedur es Start: 11-21-2024 End: 11-21-2024 ambulatory SYBIL [facility] Start: 11-21-2024 End: 11-21-2024 Subsequent hospital visit by physician [facility] Us Exam Room 1 [facility] US Imaging Comment on above: Abdominal wall serom a, subsequent encounter Start: 11-20-2024 End: 11-20-2024 Orders Only Sybil Kumar PA-C Work Phone: [facility] Special Procedures Comment on above: Abdominal wall serom a, subsequent encounter (Primary Dx) Abdominal wall serom a, initial encounter; Encounter for postoperative care; History of incisional hernia repair Start: 11-09-2024 End: 11-09-2024 Telephone encounter Aye OLEA Special Procedur es Start: 11-08-2024 End: 11-08-2024 Subsequent hospital visit by physician Za Guerrier PA-C Work Phone: [facility] US Imaging Comment on above: Abdominal wall serom a, initial encounter; History of incisional hernia repair Start: 11-08-2024 End: 11-08-2024 ambulatory [facility] Start: 10-29-2024 End: 10-29-2024 Telephone encounter Serafin Taylor DO Work Phone: [facility] [place] Start: 10-23-2024 End: 10-24-2024 ambulatory Nanci Diaz APRN.WIRE INSERTER Work Phone: [facility] Start: 10-23-2024 End: 10-24-2024 Patient encounter procedure Nanci Diaz CHEMICAL OPERATIONS SPECIALIST.WIRE INSERTER Work Phone: [facility] Comment on above: Pain Start: 10-08-2024 End: 10-08-2024 Subsequent hospital visit by physician Serafin Taylor DO Work Phone: [facility] CT Imaging Comment on above: Abdominal wall serom a, initial encounter Start: 10-08-2024 End: 10-08-2024 ambulatory [facility] Start: 10-05-2024 End: 10-05-2024 Telephone encounter Aye OLEA Special Procedur es Start: 10-05-2024 End: 10-05-2024 ambulatory TARA CARA [facility] Start: 10-05-2024 End: 10-05-2024 Subsequent hospital visit by physician Tara Marroquin PA-C Work Phone: [facility] US Imaging Comment on above: Abdominal wall serom a, initial encounter Start: 10-04-2024 End: 10-04-2024 Telephone encounter Tara Marroquin PA-C Work Phone: [facility] Special Procedures Start: 10-04-2024 End: 10-04-2024 Subsequent hospital visit by physician Za Guerrier PA-C Work Phone: [facility] US Imaging Comment on above: Abdominal wall serom a, initial encounter; History of incisional hernia repair; Postoperative abdominal pain Start: 10-04-2024 End: 10-04-2024 ambulatory ZA CHEY [facility] Start: 10-01-2024 End: 10-01-2024 Telephone encounter Aye Nguyen RN [facility] Special Procedur es Start: 09-28-2024 End: 09-28-2024 ambulatory [facility] Start: 09-28-2024 End: 09-28-2024 Postop follow up visit related to original px Serafin Taylor DO Work Phone: [facility] Comment on above: Encounter for postop erative care (Primary Dx); Abdominal wall seroma, initial encounter; History of incisional hernia repair; Postoperative abdominal pain Start: 09-21-2024 End: 09-21-2024 Refill Nanci Diaz APRN.CNP Work Phone: [facility] Family Medicine Comment on above: Refill Request Start: 09-14-2024 End: 09-14-2024 Subsequent hospital visit by physician Celina Moura MD Work Phone: [facility] CT Imaging Comment on above: Abdominal wall serom a, initial encounter Start: 09-14-2024 End: 09-14-2024 ambulatory CELINA MOURA [facility] Start: 09-12-2024 End: 09-12-2024 Telephone encounter Aye Nguyen RN [facility] Special Procedur es Start: 09-10-2024 End: 09-10-2024 Telephone encounter Vane Martinez MA [facility] [place] Start: 09-07-2024 End: 09-07-2024 Orders Only Celina Moura MD Work Phone: [facility] Special Procedures Comment on above: Abdominal wall serom a, initial encounter (Primary Dx) Abdominal wall serom a, initial encounter Start: 09-05-2024 End: 09-05-2024 Telephone encounter Aye Nguyen RN [facility] Procedchas es Start: 09-03-2024 End: 09-03-2024 Telephone encounter Za Guerrier PA-C Work Phone: [facility] [place] [facility] [place] Comment on above: Results (CT) Start: 09-02-2024 End: 09-02-2024 Subsequent hospital visit by physician [facility] Exam Room [address] Imaging Comment on above: Arrived Start: 09-02-2024 End: 09-02-2024 Emergency department patient visit Donald Mueller DO Work Phone: [facility] Emergency Dept Comment on above: Abdominal wall serom a, initial encounter (Primary Dx); S/P hernia repair; Nausea and vomiting, unspecified vomiting type Start: 08-31-2024 End: 08-31-2024 Postop follow up visit related to original [employer] Work Phone: [facility] [place] [facility] Comment on above: Encounter for postop erative care (Primary Dx); Postoperative abdominal pain; Abdominal fluid collection; History of incisional hernia repair Start: 08-31-2024 End: 08-31-2024 ambulatory [facility] Start: 08-27-2024 End: 08-27-2024 Follow-up encounter Nanci Diaz APRN.CNP Work Phone: [facility] Comment on above: Follow-up examinatio n (Primary Dx); Abdominal wall hernia; Generalized abdominal pain Start: 08-27-2024 End: 08-27-2024 Telemedicine consultation with patient Nanci Diaz APRN.CNP Work Phone: [facility] Start: 08-27-2024 End: 08-27-2024 ambulatory NANCI DIAZ Facility:[facility] Start: 08-24-2024 End: 08-24-2024 Postop follow up visit related to original [employer] Work Phone: [facility] [place] Comment on above: S/P hernia repair (P rimary Dx) Start: 08-24-2024 End: 08-24-2024 ambulatory SERAFIN TAYLOR [facility] Start: 08-21-2024 End: 08-21-2024 ambulatory NANCI DIAZ Facility:[facility] Start: 08-13-2024 End: 08-13-2024 Refill Nanci Diaz APRN.WIRE INSER[employer] Work Phone: [facility] Comment on above: Refill Request (/oxy CODONE-acetaminophen (PERCOCET) 5-325 mg tablet//) Start: 08-10-2024 End: 08-10-2024 Admission to same day surgery center Nanci Diaz APRN.WIRE INSER[employer] Work Phone: [facility] Comment on above: Surgery Start: 08-10-2024 End: 08-10-2024 ambulatory Nanci Diaz APRN.W[employer] INSER[employer] Work Phone: [facility] Start: 08-07-2024 End: 08-07-2024 Subsequent hospital visit by physician [facility] Exam Room [address] Imaging Comment on above: Arrived Start: 08-07-2024 End: 08-13-2024 Evaluation and management of inpatient Heath Pan MD Work Phone: [facility] Medical Surgical Unit MSU H5 Comment on above: Ventral hernia witho ut obstruction or gangrene (Primary Dx); Bilateral renal stones Start: 07-27-2024 End: 07-30-2024 ambulatory Nanci Diaz APRN.[employer] INS[employer] Work Phone: [facility] Start: 07-27-2024 End: 07-30-2024 Patient encounter procedure Nanci Diaz APRN.W[employer] INSER[employer] Work Phone: [facility] Comment on above: Medicine Start: 07-25-2024 End: 07-25-2024 Refill Nanci Diaz APRN.W[employer] INSER[employer] Work Phone: [facility] Comment on above: Refill Request Start: 07-16-2024 End: 07-16-2024 ambulatory Nanci Diaz CHEMICAL OPERATIONS SPECIALIST.WIRE INSERTER Work Phone: [facility] Start: 07-16-2024 End: 07-16-2024 Patient encounter procedure Nanci Diaz CHEMICAL OPERATIONS SPECIALIST.WIRE INSERTER Work Phone: [facility] Comment on above: [place]er[place] Refill Request Start: 07-08-2024 End: 07-08-2024 ambulatory Magalys [facility] Start: 07-08-2024 End: 07-08-2024 Patient encounter procedure Magalys Cunningham [facility] Start: 07-08-2024 End: 07-08-2024 Subsequent hospital visit by physician [facility] Exam Room [address] Imaging Comment on above: Arrived Start: 07-08-2024 End: 07-08-2024 Emergency department patient visit Vishal Garcia MD Work Phone: [facility] Emergency Dept Comment on above: Abdominal pain, gene ralized (Primary Dx); Ventral hernia without obstruction or gangrene Start: 06-22-2024 End: 06-22-2024 Telephone encounter Vane Martinez MA [facility] [employer] Advance d Lap[facility]oscopic Surgery - [place] Start: 06-21-2024 End: 06-21-2024 Telephone encounter Serafin Taylor DO Work Phone: [facility] [employer] Advanced [facility]aroscopic Surgery - [place] Comment on above: Other Start: 06-13-2024 End: 06-13-2024 Office outpatient visit 40 minutes Serafin Taylor DO Work Phone: [facility] [employer] Advanced Laparoscopic Surgery Comment on above: Recurrent incisional hernia (Primary Dx); Abdominal pain, generalized Start: 06-05-2024 End: 06-05-2024 ambulatory Nanci Diaz CHEMICAL OPERATIONS SPECIALIST.WIRE INSERTER Work Phone: [facility] Start: 06-05-2024 End: 06-05-2024 Patient encounter procedure Nanci Diaz CHEMICAL OPERATIONS SPECIALIST.WIRE INSERTER Work Phone: [facility] Comment on above: Hernia Pre Surg Start: 05-31-2024 End: 05-31-2024 Telephone encounter Serafin Taylor DO Work Phone: [facility] Advanced Laproscopic Surgery Start: 05-30-2024 End: 05-30-2024 Emergency department patient visit NANCI DIAZ Facility:[facility] Start: 05-25-2024 Get Medical Advice Nanci Diaz CHEMICAL OPERATIONS SPECIALIST.WIRE INSERTER Work Phone: [facility] Comment on above: Refill Start: 05-20-2024 ambulatory Nanci Diaz CHEMICAL OPERATIONS SPECIALIST.WIRE INSERTER Work Phone: [facility] Start: 05-20-2024 Patient encounter procedure Nanci Diaz CHEMICAL OPERATIONS SPECIALIST.WIRE INSERTER Work Phone: [facility] Comment on above: Hernia Start: 05-18-2024 E-mail encounter fro m caregiver Nanci Diaz APRN.WIRE INSER[employer] Work Phone: [facility] Start: 05-18-2024 Patient encounter procedure Nanci Diaz CHEMICAL OPERATIONS SPECIALIST.WIRE INSERTER Work Phone: [facility] Comment on above: Pain meds Start: 05-11-2024 Refill Nanci Diaz APRN.WIRE INSERTER Work Phone: [facility] Comment on above: Refill Request Start: 05-09-2024 Telephone encounter [facility] Provider [facility] Comment on above: Patient Update Start: 05-08-2024 Telephone encounter Nanci smallwood APRN.WIRE INSERTER Work Phone: [facility] Comment on above: REFERRAL (To General Surgery) Start: 05-06-2024 ambulatory Nanci Diaz CHEMICAL OPERATIONS SPECIALIST.WIRE INSERTER Work Phone: [facility] Start: 05-06-2024 Patient encounter procedure Nanci Diaz APRN.WIRE INSERTER Work Phone: [facility] Comment on above: Hernia issues Start: 05-04-2024 Telephone encounter Nanci smallwood APRN.MAHENDRA Work Phone: [facility] Comment on above: Referral Information (Gastroenterology) Start: 05-04-2024 End: 05-04-2024 Patient encounter procedure Nanci Diaz APRN.WIRE INSERTER Work Phone: [facility] Comment on above: Abdominal wall herni a (Primary Dx); Generalized abdominal pain; Situational anxiety Start: 04-24-2024 End: 04-27-2024 ambulatory Deena Wallace RN [facility] Clinical Communication Start: 04-24-2024 End: 04-27-2024 Patient encounter procedure Deena Wallace RN [facility] Clinical Communication Start: 04-24-2024 End: 04-24-2024 Subsequent hospital visit by physician [facility] Room 1 [facility] Imaging Comment on above: Arrived Start: 04-24-2024 End: 04-26-2024 Evaluation and management of inpatient Ahmet Terrell DO Work Phone: [facility] Medical Surgical Unit MSU H5 Comment on above: Ventral hernia witho ut obstruction or gangrene (Primary Dx) Start: 04-16-2024 Telephone encounter Nanci smallwood APRN.WIRE INSERTER Work Phone: [facility] Start: 04-15-2024 End: 05-19-2024 ambulatory Claudia Perez RN [facility] Clinical Communication Start: 04-15-2024 End: 05-19-2024 Patient encounter procedure Claudia Perez RN [facility] Clinical Communication Start: 04-15-2024 End: 04-15-2024 Subsequent hospital visit by physician [facility] Exam Room 1 [facility] Imaging Comment on above: Arrived Start: 04-15-2024 End: 04-15-2024 Emergency department patient visit Marvin Real MD Work Phone: [facility] Emergency Dept Comment on above: Nausea and vomiting, unspecified vomiting type (Primary Dx); Ventral hernia without obstruction or gangrene Start: 04-10-2024 End: 04-10-2024 Subsequent hospital visit by physician [facility] Exam Room [address] Imaging Comment on above: Arrived Start: 04-10-2024 End: 04-13-2024 Evaluation and management of inpatient Shaista Ahn MD Work Phone: [facility] Medical Surgical Unit MSU H5 Comment on above: Generalized abdomina l pain (Primary Dx); Partial small bowel obstruction (HCC); Ventral hernia with obstruction and without gangrene Start: 04-03-2024 End: 04-03-2024 Office outpatient visit 15 minutes Neela Steven MD Work Phone: [facility] [place] Comment on above: Ventral hernia, recu rrent (Primary Dx); BMI 40.0-44.9, adult (HCC); Class 3 severe obesity with serious comorbidity and body mass index (BMI) of 40.0 to 44.9 in adult, unspecified obesity type (HCC) Start: 03-06-2024 End: 03-06-2024 Office outpatient visit 15 minutes Neela Steven MD Work Phone: [facility] [place] Comment on above: BMI 40.0-44.9, adult (HCC) (Primary Dx); Ventral hernia, recurrent; Class 3 severe obesity with serious comorbidity and body mass index (BMI) of 40.0 to 44.9 in adult, unspecified obesity type (HCC) Start: 01-30-2024 End: 01-30-2024 Office outpatient visit 15 minutes Neela Steven MD Work Phone: [facility] [place] Comment on above: Screening for diabet es mellitus (DM) (Primary Dx); BMI 40.0-44.9, adult (HCC); Class 3 severe obesity with serious comorbidity and body mass index (BMI) of 40.0 to 44.9 in adult, unspecified obesity type (HCC); Ventral hernia, recurrent Start: 01-20-2024 Refill Neela Steven MD Work Phone: [facility] [place] Comment on above: BMI 40.0-44.9, adult (HCC); Class 3 severe obesity with serious comorbidity and body mass index (BMI) of 40.0 to 44.9 in adult, unspecified obesity type (HCC) Start: 01-09-2024 Telephone encounter Gayle lew CHEMICAL OPERATIONS SPECIALIST - WIRE INSERTER Work Phone: [facility] [place] Start: 12-29-2023 ambulatory Rhonda Rivas Cl inical Communication Start: 12-29-2023 Patient encounter procedure Rhonda Rivas Clinical Communication Start: 12-29-2023 End: 12-29-2023 Emergency department patient visit Satish Dial Shad DO Work Phone: [facility] Emergency Dept Comment on above: Generalized abdomina l pain (Primary Dx) Start: 12-29-2023 End: 12-29-2023 Office outpatient new 45 minutes Neela Steven MD Work Phone: [facility] Comment on above: Ventral hernia with obstruction and without gangrene (Primary Dx); BMI 40.0-44.9, adult (HCC); Class 3 severe obesity with serious comorbidity and body mass index (BMI) of 40.0 to 44.9 in adult, unspecified obesity type (HCC) Start: 12-22-2023 End: 12-22-2023 Subsequent hospital visit by physician Gayle Anderson CHEMICAL OPERATIONS SPECIALIST - WIRE INSERTER Work Phone: [facility] Comment on above: Morbid obesity with BMI of 40.0-44.9, adult (HCC); Right lower quadrant abdominal pain; Change in bowel function; Ventral hernia with obstruction and without gangrene Start: 11-29-2023 End: 11-29-2023 Subsequent hospital visit by physician Serafin Taylor DO Work Phone: [facility] Endoscopy Comment on above: Generalized abdomina l pain; Other specified symptoms and signs involving the digestive system and abdomen Start: 11-24-2023 ambulatory Gayle Anderson CHEMICAL OPERATIONS SPECIALIST - WIRE INSERTER Work Phone: [facility] [place] Start: 11-16-2023 Telephone encounter Gayle lew CHEMICAL OPERATIONS SPECIALIST - WIRE INSERTER Work Phone: [facility] [place] Start: 11-15-2023 End: 11-15-2023 Office outpatient new 60 minutes Serafin Taylor DO Work Phone: [facility] Comment on above: Ventral hernia with obstruction and without gangrene (Primary Dx); Morbid obesity with BMI of 40.0-44.9, adult (HCC); Right lower quadrant abdominal pain; Change in bowel function Start: 11-15-2023 Documentation procedure Gayle Anderson CHEMICAL OPERATIONS SPECIALIST - WIRE INSERTER Work Phone: [facility] Comment on above: EGD / Colonoscopy (E GD / C-scopt order ) Start: 11-15-2023 Telephone encounter Gayle lew CHEMICAL OPERATIONS SPECIALIST - WIRE INSERTER Work Phone: [facility] Comment on above: Financial File (Dotty ncial File 2023); Surgery Scheduling (Initial Scheduling - Orders Pended ) Start: 11-13-2023 End: 11-13-2023 Subsequent hospital visit by physician [facility] [address] [facility] Comment on above: Arrived Start: 11-13-2023 End: 11-13-2023 Emergency department patient visit Alan Borjas DO Work Phone: [facility] Emergency Dept Comment on above: Vomiting and diarrhe a (Primary Dx); Generalized abdominal pain; Ventral hernia without obstruction or gangrene Start: 10-19-2023 End: 10-19-2023 ambulatory JOSE BARRON Facility:[facility] Start: 10-19-2023 End: 10-19-2023 Subsequent hospital visit by physician [facility] Exam Room [address] [facility] [address] Comment on above: Arrived Start: 10-19-2023 End: 10-20-2023 Emergency department patient visit Heath Lim MD Work Phone: [facility] Clinical Decision Unit CDU Comment on above: Ventral hernia with obstruction (Primary Dx); Ventral hernia with obstruction and without gangrene Start: 10-17-2023 End: 10-17-2023 ambulatory JOSE BARRON Facility:[facility] Start: 09-16-2023 Telephone encounter Michelle Rivas Clinical Communication Comment on above: Hospital Follow-up Start: 09-13-2023 End: 09-13-2023 Subsequent hospital visit by physician [facility] [address] [facility] Comment on above: Arrived Start: 09-13-2023 End: 09-15-2023 Evaluation and management of inpatient Celina Hendrix MD Work Phone: [facility] Cardiac Progressive Care Unit PCU 2E Comment on above: Ventral hernia with obstruction and without gangrene (Primary Dx); Chronic abdominal pain Start: 08-31-2023 End: 08-31-2023 [facility] Sally Gonzalez APRN.WIRE INSERTER Work Phone: Psychiatry Comment on above: Mixed obsessional th oughts and acts (Primary Dx); Attention deficit hyperactivity disorder (ADHD), combined type; Panic disorder with agoraphobia; Chronic post-traumatic stress disorder (PTSD); Recurrent major depressive disorder, in partial remission (HCC) Start: 08-29-2023 Refill Sally bhagat APRN.WIRE INSERTER Work Phone: [facility] Comment on above: Refill Request Start: 07-25-2023 End: 07-26-2023 ambulatory JOSE BARRON Facility:[facility] Start: 07-25-2023 End: 07-25-2023 ambulatory Sally Gonzalez APRN.WIRE INSERTER Work Phone: Psychiatry Comment on above: NO SHOW (Primary Dx) Start: 07-25-2023 End: 07-25-2023 Telemedicine consultation with patient Sally Gonzalez APRN.WIRE INSERTER Work Phone: [facility] Start: 06-28-2023 End: 06-30-2023 ambulatory OTHER [facility] Facility:[facility] Start: 06-28-2023 End: 06-30-2023 Evaluation and management of inpatient Neri Tanner MD Work Phone: [email or web address] Comment on above: Incisional hernia Start: 06-27-2023 End: 06-27-2023 Emergency department patient visit HEATH MENENDEZ [facility] Start: 06-01-2023 End: 06-01-2023 Emergency department patient visit TOM HARTLEY [facility] Start: 05-20-2023 End: 05-20-2023 Emergency department patient visit SATISH Dial [facility] Start: 03-14-2023 Patient Outreach Jenny Celeste RN [facility] Care Management Comment on above: Transition Of Care ( [facility] 03-12-23.) Start: 03-10-2023 End: 03-12-2023 Evaluation and management of inpatient JULIETA ANDRADE Facility:[facility] Start: 03-08-2023 End: 03-08-2023 Emergency department patient visit Donald Cotter [facility] Emergency 14 Start: 03-07-2023 End: 03-08-2023 Emergency department patient visit SATISH Dial [facility] Start: 03-02-2023 End: 03-02-2023 Emergency department patient visit TOM HARTLEY [facility] Start: 02-11-2023 End: 02-12-2023 ambulatory JOSE BARRON Facility:[facility] Start: 02-11-2023 End: 02-11-2023 ambulatory Sally Gonzalez APRN.WIRE INSERTER Work Phone: Psychiatry Comment on above: NO SHOW (Primary Dx) Start: 02-11-2023 End: 02-11-2023 Telemedicine consultation with patient Sally Gonzalez APRN.WIRE INSERTER Work Phone: [facility] Start: 02-09-2023 ambulatory SELF SELF Facility:[facility] Start: 02-09-2023 End: 02-09-2023 Office outpatient new 20 minutes Tom Koehler MD Work Phone: General and Gastrointestinal Surgery [facility] Comment on above: Recurrent ventral in cisional hernia (Primary Dx) Start: 01-28-2023 Refill Sally bhagat CHEMICAL OPERATIONS SPECIALIST.WIRE INSERTER Work Phone: Psychiatry Comment on above: Refill Request; Refi ll Request Start: 01-26-2023 ambulatory MICHELLE GARZA Facilit y:[facility] Start: 01-20-2023 ambulatory MICHELLE GARZA Facil ity:[facility] Start: 01-10-2023 End: 01-11-2023 ambulatory JOSE BARRON Facility:[facility] Start: 01-04-2023 End: 01-05-2023 Emergency department patient visit [facility] Start: 12-13-2022 End: 12-14-2022 Emergency department patient visit LI JARA [facility] Start: 11-23-2022 End: 11-23-2022 [facility] Sally Gonzalez APRN.WIRE INSERTER Work Phone: Psychiatry Comment on above: Panic disorder with agoraphobia (Primary Dx); Mixed obsessional thoughts and acts; Chronic post-traumatic stress disorder (PTSD); Recurrent major depressive disorder, in partial remission (HCC) Start: 11-22-2022 End: 11-22-2022 Emergency department patient visit TOM [facility] Start: 11-16-2022 End: 11-16-2022 Emergency department patient visit [facility] Start: 10-29-2022 End: 10-29-2022 Refill Sally Gonzalez APRN.WIRE INSERTER Work Phone: Psychiatry Comment on above: Refill Request Toothache (Primary D x) Start: 09-07-2022 End: 09-08-2022 Emergency department patient visit Michelle Orourke Facility:[facility] Start: 09-07-2022 End: 09-08-2022 Emergency department patient visit [facility] Start: 08-17-2022 ambulatory MICHELLE Vidales ity:[facility] Start: 08-03-2022 ambulatory Sally bhagat APRN.WIRE INSERTER Work Phone: Psychiatry Comment on above: My medication Start: 07-30-2022 End: 07-30-2022 Emergency department patient visit Jero Gold Facility:[facility] Start: 07-30-2022 End: 07-30-2022 Emergency department patient visit [facility] Start: 06-23-2022 Refill Carlos santorotraci [place] Comment on above: Refill Request Start: 04-21-2022 ambulatory Sally bhagat APRN.WIRE INSERTER Work Phone: Psychiatry Comment on above: Meds Start: 03-30-2022 End: 03-30-2022 ambulatory Leeanna Aranda CHEMICAL OPERATIONS SPECIALIST.WIRE INSERTER Work Phone: [facility] [place] Comment on above: Dental infection (Pr imary Dx) Start: 03-30-2022 End: 03-30-2022 Telemedicine consultation with patient Leeanna Aranda APRN.WIRE INSERTER Work Phone: [facility] Start: 03-21-2022 End: 03-21-2022 Emergency department patient visit [facility] Facility:[facility] Start: 03-20-2022 End: 03-21-2022 Emergency department patient visit [facility] Start: 01-08-2022 End: 01-08-2022 [facility] Sally Gonzalez CHEMICAL OPERATIONS SPECIALIST.WIRE INSERTER Work Phone: Psychiatry Comment on above: Panic disorder with agoraphobia (Primary Dx); Mixed obsessional thoughts and acts; Chronic post-traumatic stress disorder (PTSD); Major depressive disorder, recurrent episode, moderate (HCC); Marijuana use Start: 10-29-2021 Orders Only Jose Curtis MD Work Phone: [facility] Start: 08-20-2021 End: 08-20-2021 ambulatory JOSE CURTIS [facility] Ambulatory Start: 08-20-2021 End: 08-20-2021 Office outpatient new 30 minutes Jose Curtis MD Work Phone: [facility] Comment on above: Recurrent incisional hernia with complication (Primary Dx) Start: 07-29-2021 End: 07-29-2021 Emergency department patient visit PHYSICIAN [facility] Start: 05-19-2021 End: 05-19-2021 Subsequent hospital visit by physician Xr [facility] Work Phone: Radiology Comment on above: Suspected COVID-19 v irus infection [Z20.822] Start: 04-28-2021 End: 04-28-2021 Emergency department patient visit PHYSICIAN [facility] Start: 03-17-2021 End: 03-17-2021 Emergency department patient visit Govind Graham MD Work Phone: [facility] Emergency Department Start: 09-01-2020 Patient encounter procedure Mike Mcgrath [facility] Work Phone: Start: 07-24-2020 Patient encounter procedure Mike Mcgrath [facility] Work Phone: Start: 04-10-2020 Patient encounter procedure Mike Mcgrath [facility] Work Phone: Start: 03-27-2020 Patient encounter procedure Mike Mcgrath [facility] Work Phone: Start: 02-28-2020 Patient encounter procedure Mike Mcgrath [facility] Work Phone: Start: 01-17-2019 Emergency department patient visit Rio Trevino Facility:[facility] Start: 06-06-2018 Emergency department patient visit Emergency [facility] Facility:[facility] Start: 06-04-2018 Emergency department patient visit Emergency Physicians [facility] Facility:[facility] Start: 11-05-2014 Patient encounter status Sally Tannermonique [facility] Work Phone: [facility] Work Phone: Start: 03-01-2012 Evaluation and management of inpatient [facility]- Procedures Date Procedure Procedure Detail Performing Clinician Start: 07-30-2025 Ct abdomen & pelvis w/contrast material Vivian Martinez MD Work Phone: Start: 07-30-2025 Urnls dip stick/tabl et rgnt auto w/o microscopy Vivian Martinez MD Work Phone: Start: 07-30-2025 Comprehensive metabo lic panel Vivian Martinez MD Work Phone: Start: 07-30-2025 Ecg routine ecg w/le ast 12 lds trcg only w/o i&r Vivian Martinez MD Work Phone: Start: 07-10-2025 Basic metabolic pane l calcium total Celina Barajas MD Work Phone: Start: 07-09-2025 Radiologic exam upr gi trc single contrast study Brent Blanco MD Work Phone: Start: 07-09-2025 Basic metabolic pane l calcium total Brent Blanco MD Work Phone: Start: 07-08-2025 Assay of lactate Will Granado DO Work Phone: Start: 07-08-2025 Ct abdomen & pelvis w/contrast material Jacquelinejustin Orozco DO Work Phone: Start: 07-08-2025 Urnls dip stick/tabl et reagent auto microscopy Jacqueline Pam DO Work Phone: Start: 07-08-2025 Comprehensive metabo lic panel Jacqueline Orozco DO Work Phone: Start: 06-14-2025 Follow-up visit Follow-up SERAFIN DILLON Start: 05-24-2025 Basic metabolic pane l calcium total Cody Baodi DO Work Phone: Start: 05-23-2025 Basic metabolic pane l calcium total Cody Baodi DO Work Phone: Start: 05-22-2025 End: 05-22-2025 Basic metabolic panel calcium total Cody Ilodi DO Work Phone: Start: 05-21-2025 Assay of troponin quantitative Ralph Garcia DO Work Phone: Start: 05-21-2025 Basic metabolic pane l calcium total Ralph Garcia DO Work Phone: Start: 05-20-2025 Ct abdomen & pelvis w/contrast material Rose Edward DO Work Phone: Start: 05-20-2025 Antibody screen TASH CERVANTES Comment on above: Performed By: #### L [id number] ####Online Banking Specialist: SOL ZENG ([phone])[facility] ([facility])[address] [place] [address] Start: 05-20-2025 Blood typing serologic abo Rose Edward DO Work Phone: Start: 05-20-2025 Comprehensive metabo lic panel Susan Ratliff MD Work Phone: Start: 05-20-2025 Urnls dip stick/tabl et rgnt auto w/o microscopy Susan Ratliff MD Work Phone: Start: 05-11-2025 Basic metabolic pane l calcium total Sami Rodriguez MD Work Phone: Start: 05-10-2025 Radiologic exam smal l int single contrast study Scot Casanova MD Work Phone: Start: 05-10-2025 Basic metabolic pane l calcium total Sami Rodriguez MD Work Phone: Start: 05-09-2025 Assay of lactate Kaitly n Parsons PA-C Work Phone: Start: 05-09-2025 Assay of lactate Kaitly n Parsons PA-C Work Phone: Start: 05-09-2025 Ct abdomen & pelvis w/contrast material Shannon Parsons PA-C Work Phone: Start: 05-09-2025 Comprehensive metabo lic panel Shannon Parsons PA-C Work Phone: Start: 05-09-2025 MEDICATION ASSISTED TREATMENT PANEL Zana Ayala DO Work Phone: Start: 05-09-2025 Urnls dip stick/tabl et rgnt auto w/o microscopy Shannon Parsons PA-C Work Phone: Start: 02-22-2025 Comprehensive metabo lic panel Dilip Yen MD Work Phone: Start: 02-20-2025 Ct abdomen & pelvis w/contrast material Armand Sahni PA-C Work Phone: Start: 02-20-2025 Comprehensive metabo lic panel Armand Sahni PA-C Work Phone: Start: 02-20-2025 Urnls dip stick/tabl et rgnt auto w/o microscopy Armand Sahni PA-C Work Phone: Start: 02-20-2025 Ecg routine ecg w/le ast 12 lds trcg only w/o i&r Armand ANNAC Work Phone: Start: 12-25-2024 Ct abdomen & pelvis w/contrast material Alayna Curry DO Work Phone: Start: 12-25-2024 Comprehensive metabo lic panel Alayna Curry DO Work Phone: Start: 12-25-2024 Urinalysis complete panel - Urine Alayna Curry DO Work Phone: Start: 12-25-2024 Urine test visual color cmprsn meths Tash Primitivo Cisco DO Work Phone: Start: 12-25-2024 Urnls dip stick/tabl et reagent auto microscopy Alayna Curry DO Work Phone: Start: 11-23-2024 Ct abdomen & pelvis w/contrast material Corky Plummer MD Work Phone: Start: 11-23-2024 Comprehensive metabo lic panel Corky Plummer MD Work Phone: Start: 11-21-2024 Img-guide fluid vanda xn drainag cath periton perq Sybil Kumar PA-C Work Phone: Start: 11-20-2024 Image-guide fluid co llxn drainage cath visc perq Za RICARDO-C Work Phone: Start: 11-20-2024 Blood count complete automated Jose Carlson MD Other Phone: Start: 11-08-2024 Us abdominal real ti me w/image limited Za RICARDO-C Work Phone: Start: 10-08-2024 Ct abdomen w/o contr ast material Tara Marroquin PA-C Work Phone: Start: 10-05-2024 Img-guide fluid vanda xn drainag cath periton perq Tara Marroquin PA-C Work Phone: Start: 10-04-2024 Cul bact xcpt urine blood/stool aerobic isol Za Guerrier PA-C Work Phone: Start: 10-04-2024 Img-guide fluid vanda xn drainag cath periton perq Za Guerrier PA-C Work Phone: Start: 10-04-2024 Urine test visual color cmprsn meths Loni Ta MD Work Phone: Start: 09-28-2024 Follow-up visit TASH CERVANTES Start: 09-14-2024 Image-guided cathete r fluid collection drainage Celina Moura MD Work Phone: Start: 09-14-2024 Urine test visual color cmprsn meths Tom Gongora DO Work Phone: Start: 09-07-2024 Img-guide fluid vanda xn drainag cath periton perq Serafin Taylor DO Work Phone: Start: 09-07-2024 Cul bact xcpt urine blood/stool aerobic isol Serafin Taylor DO Work Phone: Start: 09-07-2024 Blood count complete automated Celina Moura MD Work Phone: Start: 09-07-2024 Urine test visual color cmprsn meths Celina Moura MD Work Phone: Start: 09-02-2024 Ct abdomen & pelvis w/contrast material Maricel Zamora PA-C Work Phone: Start: 09-02-2024 Comprehensive metabo lic panel Donald Mueller DO Work Phone: Start: 09-02-2024 Urinalysis complete panel - Urine Donald Mueller DO Work Phone: Start: 09-02-2024 Urnls dip stick/tabl et rgnt auto w/o microscopy Donald Mueller DO Work Phone: Start: 08-31-2024 Follow-up visit TASH CERVANTES Start: 08-24-2024 Follow-up visit TASH CERVANTES Start: 08-13-2024 Basic metabolic pane l calcium total Roman Laurent MD Work Phone: Start: 08-12-2024 Basic metabolic pane l calcium total Roman Laurent MD Work Phone: Start: 08-11-2024 Basic metabolic pane l calcium total Roman Laurent MD Work Phone: Start: 08-10-2024 Blood count complete automated Roman Laurent MD Work Phone: Start: 08-10-2024 Basic metabolic pane l calcium total Roman Laurent MD Work Phone: Start: 08-09-2024 Bilirubin direct Alliso n N [place] CHEMICAL OPERATIONS SPECIALIST - WIRE INSERTER Work Phone: Start: 08-09-2024 Blood count complete automated Lindsay Mcelroy MD Work Phone: Start: 08-09-2024 Comprehensive metabo lic panel Lindsay Mcelroy MD Work Phone: Start: 08-08-2024 Basic metabolic pane l calcium total Lindsay Mcelroy MD Work Phone: Start: 08-08-2024 Basic metabolic pane l calcium total Lindsay Mcelroy MD Work Phone: Start: 08-08-2024 Manual Differential panel - Blood iLndsay Mcelroy MD Work Phone: Start: 08-07-2024 Level iii surg patho logy gross&microscopic exam [employer] DO Work Phone: Start: 08-07-2024 End: 08-08-2024 Exploratory laparotomy celiotomy w/wo biopsy spx [employer] DO Work Phone: Start: 08-07-2024 Radiologic exam ches t single view Darrin Horowitz DO Work Phone: Start: 08-07-2024 Blood typing serologic abo Darrin Horowitz DO Work Phone: Start: 08-07-2024 Prothrombin time Katty Horowitz DO Work Phone: Start: 08-07-2024 Ecg routine ecg w/le ast 12 lds trcg only w/o i&r Darrin Horowitz DO Work Phone: Start: 08-07-2024 Ct abdomen & pelvis w/contrast material Heath Pan MD Work Phone: Start: 08-07-2024 Comprehensive metabo lic panel Heath Pan MD Work Phone: Start: 07-08-2024 Ct abdomen & pelvis w/contrast material Vishal Garcia MD Work Phone: Start: 07-08-2024 Comprehensive metabo lic panel Vishal Garcia MD Work Phone: Start: 07-08-2024 Urinalysis complete panel - Urine Vishal Garcia MD Work Phone: Start: 07-08-2024 Urnls dip stick/tabl et reagent auto microscopy Vishal Garcia MD Work Phone: Start: 04-26-2024 Basic metabolic pane l calcium total Roman Laurent MD Work Phone: Start: 04-25-2024 Radiologic exam smal l int single contrast study Lelo Oquendo MD Work Phone: Start: 04-25-2024 Basic metabolic pane l calcium total Roman Laurent MD Work Phone: Start: 04-24-2024 Ct abdomen & pelvis w/contrast material Ahmet G Nesheim DO Work Phone: Start: 04-24-2024 Urine test visual color cmprsn meths Ahmet G Nesheim DO Work Phone: Start: 04-24-2024 Comprehensive metabo lic panel Ahmet G Nesheim DO Work Phone: Start: 04-15-2024 Ct abdomen & pelvis w/contrast material Maricel Zamora PA-C Work Phone: Start: 04-15-2024 Comprehensive metabo lic panel Marvin Real MD Work Phone: Start: 04-15-2024 Urinalysis complete panel - Urine Marvin Real MD Work Phone: Start: 04-15-2024 Urine test visual color cmprsn meths Maricel D Noah RICARDO-C Work Phone: Start: 04-15-2024 Urnls dip stick/tabl et reagent auto microscopy Marvin Real MD Work Phone: Start: 04-13-2024 Basic metabolic pane l calcium total Scot Casanova MD Work Phone: Start: 04-12-2024 Basic metabolic pane l calcium total Scot Casanova MD Work Phone: Start: 04-11-2024 Assay of lactate Lelo Oquendo MD Work Phone: Start: 04-11-2024 Radiologic exam abdo men 1 view Jie Arevalo MD Work Phone: Start: 04-11-2024 Basic metabolic pane l calcium total Scot Casanova MD Work Phone: Start: 04-10-2024 Radiologic exam abdo men 1 view Jie Arevalo MD Work Phone: Start: 04-10-2024 Assay of lactate Pema Ahn MD Work Phone: Start: 04-10-2024 Ct abdomen & pelvis w/contrast material Shaista Ahn MD Work Phone: Start: 04-10-2024 Comprehensive metabo lic panel Shaista Ahn MD Work Phone: Start: 01-30-2024 Glucose quantitative blood xcpt reagent strip Neela Steven MD Work Phone: Start: 12-29-2023 Urinalysis complete panel - Urine Satish Charlton DO Work Phone: Start: 12-29-2023 Urnls dip stick/tabl et rgnt auto w/o microscopy Satish Charlton DO Work Phone: Start: 12-29-2023 Comprehensive metabo lic panel Satish Charlton DO Work Phone: Start: 12-22-2023 Radiologic exam upr gi trc single contrast study Gayle Anderson CHEMICAL OPERATIONS SPECIALIST - WIRE INSERTER Work Phone: Start: 11-13-2023 Ct abdomen & pelvis w/o contrast material Alan Borjas DO Work Phone: Start: 11-13-2023 Comprehensive metabo lic panel Alan Borjas DO Work Phone: Start: 11-13-2023 Urinalysis complete panel - Urine Alan Borjas DO Work Phone: Start: 11-13-2023 Urnls dip stick/tabl et rgnt auto w/o microscopy Alan Borjas DO Work Phone: Start: 10-20-2023 Comprehensive metabo lic panel Liyah Florence Jewels CHEMICAL OPERATIONS SPECIALIST - WIRE INSERTER Work Phone: Start: 10-19-2023 Ct abdomen & pelvis w/o contrast material Heath Lim MD Work Phone: Start: 10-19-2023 Urinalysis complete panel - Urine Heath Lim MD Work Phone: Start: 10-19-2023 Urine test visual color cmprsn meths Heath Lim MD Work Phone: Start: 10-19-2023 Urnls dip stick/tabl et reagent auto microscopy Heath Lim MD Work Phone: Start: 10-19-2023 Basic metabolic pane l calcium total Heath Lim MD Work Phone: Start: 09-14-2023 Radiologic exam abdo men 1 view Will Conner MD Work Phone: Start: 09-14-2023 Assay of lipase Will Conner MD Work Phone: Start: 09-13-2023 Ct abdomen & pelvis w/contrast material Celina Hendrix MD Work Phone: Start: 09-13-2023 End: 09-13-2023 Comprehensive metabolic panel Celina Hendrix MD Work Phone: Start: 09-13-2023 Urinalysis complete panel - Urine Celina Hendrix MD Work Phone: Start: 09-13-2023 Urnls dip stick/tabl et rgnt auto w/o microscopy Celina Hendrix MD Work Phone: Start: 06-30-2023 Assay of magnesium Aditi Lantigua MD Work Phone: Start: 06-29-2023 Radiologic exam abdo men 1 view Patrick Kong MD Work Phone: Start: 06-29-2023 Assay of magnesium Aditi Lantigua MD Work Phone: Start: 06-28-2023 Blood gases any comb ination ph pco2 po2 co2 hco3 Chanda Cotter MD Work Phone: Start: 06-27-2023 Assay of lipase Chanda Cotter MD Work Phone: Start: 06-27-2023 CBC AND ELECTRONIC DIFF Chanda Cotter MD Work Phone: Start: 06-27-2023 Complete blood count with white cell differential, automated Chanda Cotter MD Work Phone: Start: 06-27-2023 GOLD TOP TUBE Chanda Cotter MD Work Phone: Start: 06-27-2023 Hepatic function panel Chanda Cotter MD Work Phone: Start: 06-27-2023 LAVENDER TOP TUBE Curt Cotter MD Work Phone: Start: 06-27-2023 LT BLUE TOP TUBE Ofe kavitha Cotter MD Work Phone: Start: 06-27-2023 MINT GREEN TOP TUBE Kirky sharita Cotter MD Work Phone: Start: 06-27-2023 RAINBOW DRAW Chanda Cotter MD Work Phone: Start: 05-20-2023 Urinalysis ALISA IQBA L Comment on above: Result Comment: URIN ALYSIS Performed By: #### [id number] #### [place] [id number] Start: 03-10-2023 Antibody screen JOSE BARRON Comment on above: Order Comment: Speci men Type: BLOOD SPECIMENOrdering Facility: [facility] Address: [address] [place] [address] Performed By: #### T SCR ####[facility] BLOOD BANKCLIA [id number] [address] Start: 03-08-2023 End: 03-08-2023 EKG impression Donald Cotter Start: 03-02-2023 Urinalysis ALISA IQBA L Comment on above: Result Comment: URIN ALYSIS Performed By: #### [id number] #### [place] [id number] Start: 01-05-2023 Urinalysis ALISA IQBA L Comment on above: Result Comment: URIN ALYSIS Performed By: #### [id number] #### [place] [id number] Start: 12-14-2022 Urinalysis ALISA IQBA L Comment on above: Result Comment: URIN ALYSIS Performed By: #### 2 [id number] #### [place] [id number] Start: 11-23-2022 Follow-up visit Follow Up SALLY GONZALEZ Start: 11-16-2022 Urinalysis ALISA IQBA L Comment on above: Result Comment: URIN ALYSIS Performed By: #### 2 [id number] #### [place] [address] Start: 09-07-2022 Computed tomography of abdomen and pelvis with contrast Start: 03-21-2022 Computed tomography of abdomen and pelvis with intravenous contrast Start: 05-19-2021 Radiologic exam ches t 2 views Noah Alicia CHEMICAL OPERATIONS SPECIALIST.WIRE INSERTER Work Phone: Start: 03-17-2021 Ct abdomen & pelvis w/contrast material Govind Graham MD Work Phone: Start: 03-17-2021 End: 03-17-2021 Gonadotropin chorionic qualitative [facility] Start: 03-17-2021 Urnls dip stick/tabl et rgnt auto w/o microscopy [facility] Start: 04-10-2020 Follow-up visit Start: 03-27-2020 Follow-up visit Start: 11-09-2011 End: 11-19-2011 Chest x-ray Tuyet Elizabeth MD Start: 11-09-2011 End: 11-09-2011 Follow Up Appt 2 weeks Tuyet Elizabeth MD Start: 10-26-2011 End: 10-28-2011 Urine test Tuyet Elizabeth MD Start: 10-26-2011 End: 11-03-2011 Urine, test (choriogonadotropin presence) Tuyet Elizabeth MD Start: 10-13-2011 End: 10-13-2011 Follow up Appt 1 week Tuyet Elizabeth MD Start: 10-13-2011 End: 10-13-2011 Urine test Tuyet Elizabeth MD Start: 09-15-2011 Lipid 1996 panel - S joaquin or Plasma [facility] Start: 09-15-2011 End: 09-15-2011 *CMP Complete Metabolic Panel Tuyet Elizabeth MD Start: 09-15-2011 End: 09-15-2011 Follow Up Appt 2 weeks Tuyet Elizabeth MD Start: 09-15-2011 End: 09-15-2011 HbA1c Tuyet Elizabeth MD Start: 09-15-2011 End: 09-15-2011 Lipid panel [AGGREGATE] Tuyet Elizabeth MD Abdominal mass (finding) DANIEL LOPEZ MD Appendectomy LENNY Alejandra Bile reflux status (observable entity) LENNY LOPEZ MD Comment on above: had surgery section Mike Gah lawat Cholecystectomy Mike Gahl awat Cholecystectomy LENNY Mccoy MD Colonoscopy Mike t Deliveries by ho hassan (finding) LENNY LOPEZ MD Comment on above: x 3 Hernia repair Mike De Los Santosaw at Laparoscopic appendectomy Vi soraida Gahlawat Umbilical hernia (disorder) LENNY LOPEZ MD Plan of Treatment Date Care Activity Detail Author Start: 2060 RSV Immunization for Adults (1 - 1-dose 75+ series) RSV Immunization for Adults (1 - 1-dose 75+ series) [facility] Start: 2045 RSV Immunization aged 60 or older (1 - 1-dose 60+ series) RSV Immunization aged 60 or older (1 - 1-dose 60+ series) [facility] Start: 2035 Zoster Vaccines (1 of 2) Zoster Vaccines (1 of 2) [facility] Start: 07-30-2026 Diabetes: Estimated Glomerular Filtration Rate for Kidney Health Diabetes: Estimated Glomerular Filtration Rate for Kidney Health [facility] Start: 07-10-2026 Diabetes: Estimated Glomerular Filtration Rate for Kidney Health Diabetes: Estimated Glomerular Filtration Rate for Kidney Health [facility] Start: 05-24-2026 Diabetes: Estimated Glomerular Filtration Rate for Kidney Health Diabetes: Estimated Glomerular Filtration Rate for Kidney Health [facility] Start: 05-11-2026 Diabetes: Estimated Glomerular Filtration Rate for Kidney Health Diabetes: Estimated Glomerular Filtration Rate for Kidney Health [facility] Start: 05-10-2026 Diabetes: Estimated Glomerular Filtration Rate for Kidney Health Diabetes: Estimated Glomerular Filtration Rate for Kidney Health [facility] Start: 04-29-2026 Diabetes: Estimated Glomerular Filtration Rate for Kidney Health Diabetes: Estimated Glomerular Filtration Rate for Kidney Health [facility] Start: 02-22-2026 Diabetes: Estimated Glomerular Filtration Rate for Kidney Health Diabetes: Estimated Glomerular Filtration Rate for Kidney Health [facility] Start: 02-20-2026 Diabetes: Estimated Glomerular Filtration Rate for Kidney Health Diabetes: Estimated Glomerular Filtration Rate for Kidney Health [facility] [employer] Start: 12-25-2025 Diabetes: Estimated Glomerular Filtration Rate for Kidney Health Diabetes: Estimated Glomerular Filtration Rate for Kidney Health [facility] Start: 11-23-2025 Diabetes: Estimated Glomerular Filtration Rate for Kidney Health Diabetes: Estimated Glomerular Filtration Rate for Kidney Health [facility] Start: 11-22-2025 Depression Monitoring Depression Monitoring [facility] Start: 09-02-2025 Diabetes: Estimated Glomerular Filtration Rate for Kidney Health Diabetes: Estimated Glomerular Filtration Rate for Kidney Health [facility] Start: 08-13-2025 Diabetes: Estimated Glomerular Filtration Rate for Kidney Health Diabetes: Estimated Glomerular Filtration Rate for Kidney Health [facility] Start: 08-08-2025 Diabetes: Estimated Glomerular Filtration Rate for Kidney Health Diabetes: Estimated Glomerular Filtration Rate for Kidney Health [facility] Start: 08-06-2025 End: 08-06-2025 Admission to same day surgery center 08/06/2025 8:50 AM EDT - 08/06/2025 9:10 AM EDT Surgery [facility] [address] [facility] [address] [place] [phone] [place] [address] [place] [address] ESOPHAGOGASTRODUODENOSCOPY, DIAGNOSTIC [11765 (CPT )] [facility] [address] [facility] Comment on above: ESOPHAGOGASTRODUODENOSCOPY, DIAGNOSTIC [ 46644 (CPT )] Start: 08-06-2025 End: 08-06-2025 Egd transoral biopsy single/multiple [facility] Start: 08-06-2025 Subsequent hospital visit by physician 08/06/2025 8:50 AM EDT Hospital Encounter [facility] [address] [facility] [address] [place] [phone] [place] [address] [facility] [address] [facility] Start: 07-10-2025 End: 07-10-2025 Patient encounter procedure 07/10/2025 8:45 AM EDT Office Visit Pain Management [address] [place] [address] Heath Flores MD [address] [place] [address] Follow up Pain Management Comment on above: Follow up Start: 07-08-2025 Diabetes: Estimated Glomerular Filtration Rate for Kidney Health Diabetes: Estimated Glomerular Filtration Rate for Kidney Health [facility] Start: 07-08-2025 End: 07-08-2025 Patient encounter procedure 07/08/2025 1:30 PM EDT Office Visit Pain Management [address] [place] [address] Heath Flores MD [address] [place] [address] Generalized abdominal pain referral by pcp (sda) Pain Management Comment on above: Generalized abdominal pain referral by p cp (sda) Start: 2025 Screening for malignant neoplasm of breast Mammogram [facility] Start: 06-12-2025 End: 09-11-2025 TOXASSURE FLEX 23, URINE TOXASSURE FLEX 23, URINE Lab Routine Chronic pain syndrome Generalized abdominal pain Chronic, continuous use of opioids Expected: 06/12/2025, Expires: 09/11/2025 [facility] Work Phone: Comment on above: Expected: 06/12/2025, Expires: Start: 06-12-2025 End: 06-12-2025 Patient encounter procedure 06/12/2025 8:00 AM EDT Office Visit Pain Management [address] [place] [address] Heath Flores MD [address] [place] [address] Abdominal Pain Pain Management Comment on above: Abdominal Pain Start: 06-10-2025 COVID-19 Vaccine ( season) COVID-19 Vaccine () [facility] Start: 06-10-2025 Influenza vaccination Influenza Vaccine (#1) [facility] Start: 05-31-2025 End: 05-31-2025 Patient encounter procedure 05/31/2025 12:30 PM EDT Office Visit [facility] Advanced Laparoscopic Surgery - [facility] [address] [place] [address] [place] [address] [facility] Laparoscopic [facility] - [facility] Start: 04-26-2025 Diabetes: Estimated Glomerular Filtration Rate for Kidney Health Diabetes: Estimated Glomerular Filtration Rate for Kidney Health [facility] Start: 04-25-2025 Diabetes: Estimated Glomerular Filtration Rate for Kidney Health Diabetes: Estimated Glomerular Filtration Rate for Kidney Health [facility] Start: 04-15-2025 Diabetes: Estimated Glomerular Filtration Rate for Kidney Health Diabetes: Estimated Glomerular Filtration Rate for Kidney Health [facility] Start: 04-13-2025 Diabetes: Estimated Glomerular Filtration Rate for Kidney Health Diabetes: Estimated Glomerular Filtration Rate for Kidney Health [facility] Start: 04-10-2025 Diabetes: Estimated Glomerular Filtration Rate for Kidney Health Diabetes: Estimated Glomerular Filtration Rate for Kidney Health [facility] Start: 03-08-2025 End: 03-08-2025 Patient encounter procedure 03/08/2025 1:30 PM EDT Office Visit [facility] Laparoscopic Surgery [place] [address] [place] [address] [facility] Advanced Laparoscopic Surgery - [facility] Start: 02-10-2025 Depression Monitoring Depression Monitoring [facility] Start: 01-29-2025 Hemoglobin A1c measurement Diabetes: Hemoglobin A1C [facility] Start: 12-28-2024 Diabetes: Estimated Glomerular Filtration Rate for Kidney Health Diabetes: Estimated Glomerular Filtration Rate for Kidney Health [facility] Start: 11-21-2024 End: 11-21-2024 Patient encounter procedure 11/21/2024 1:00 PM EST Appointment [facility] [address] [facility] [place] [phone] [facility] Start: 11-20-2024 End: 11-20-2025 US Guidance for biopsy of Unspecified body region US guided percutaneous peritoneal or retroperitoneal fluid collection drainage Imaging Routine Abdominal wall seroma, subsequent encounter Expected: 11/20/2024, Expires: 11/20/2025 [facility] Work Phone: Comment on above: Expected: 11/20/2024, Expires: Start: 11-20-2024 End: 11-20-2024 Patient encounter procedure 11/20/2024 9:00 AM EST Appointment [facility] [address] [facility] [place] [address] Za Guerrier PA-C [address] [place] [address] [place] [address] [facility] Start: 11-08-2024 End: 11-08-2025 US Guidance for drainage of abscess and placement of drainage catheter of Liver US drainage collection by cath visceral Imaging Routine Abdominal wall seroma, initial encounter Encounter for postoperative care History of incisional hernia repair Expected: 11/08/2024, Expires: 11/08/2025 [facility] Work Phone: Comment on above: Expected: 11/08/2024, Expires: Start: 10-29-2024 End: 10-29-2025 US Abdomen limited US abdomen limited Imaging Routine Abdominal wall seroma, initial encounter History of incisional hernia repair Expected: 10/29/2024, Expires: 10/29/2025 [facility] Work Phone: Comment on above: Expected: 10/29/2024, Expires: Start: 10-08-2024 End: 10-08-2024 Patient encounter procedure 10/08/2024 11:00 AM EST Appointment [facility] [address] [place] [address] [facility] Start: 10-05-2024 End: 10-05-2024 Patient encounter procedure 10/05/2024 8:00 AM EST Appointment [facility] [address] [place] [address] [facility] Start: 10-04-2024 End: 10-04-2025 US Guidance for biopsy of Unspecified body region US guided percutaneous peritoneal or retroperitoneal fluid collection drainage Imaging Routine Abdominal wall seroma, initial encounter Expected: 10/04/2024, Expires: 10/04/2025 [employer] Work Phone: Comment on above: Expected: 10/04/2024, Expires: Start: 10-04-2024 End: 10-04-2024 Patient encounter procedure [facility] Start: 09-28-2024 End: 09-28-2025 US Guidance for biopsy of Unspecified body region US guided percutaneous peritoneal or retroperitoneal fluid collection drainage Imaging STAT Abdominal wall seroma, initial encounter History of incisional hernia repair Postoperative abdominal pain Expected: 09/28/2024, Expires: 09/28/2025 [employer] Work Phone: Comment on above: Expected: 09/28/2024, Expires: Start: 09-28-2024 End: 09-28-2024 Patient encounter procedure 09/28/2024 1:45 PM EST Office Visit [facility] - [facility] [address] [place] [address] Serafin Taylor, [address] [address] [facility] Start: 09-14-2024 End: 09-07-2025 CT guided soft tissue fluid drain CT guided soft tissue fluid drain Imaging Routine Abdominal wall seroma, initial encounter Expected: 09/14/2024, Expires: 09/07/2025 [employer] Work Phone: Comment on above: Expected: 09/14/2024, Expires: Start: 09-14-2024 End: 09-14-2024 Patient encounter procedure [facility] Start: 09-07-2024 End: 09-07-2024 Patient encounter procedure 09/07/2024 10:00 AM EST Appointment [facility] [address] [place] [address] [facility] US Imaging Start: 09-03-2024 End: 09-03-2025 Aerobic and Anaerobic Culture with Stain Aerobic and Anaerobic Culture with Stain Microbiology Routine Abdominal wall seroma, initial encounter History of incisional hernia repair Expected: 09/03/2024 (Approximate), Expires: 09/03/2025 [facility] Comment on above: Expected: 09/03/2024 (Approximate), Expi res: 09/03/2025 Start: 09-03-2024 End: 09-03-2025 CT guided abscess fluid collection drainage CT guided abscess fluid collection drainage Imaging Routine Abdominal wall seroma, initial encounter History of incisional hernia repair Expected: 09/03/2024, Expires: 09/03/2025 [facility] Work Phone: Comment on above: Expected: 09/03/2024, Expires: Start: 09-03-2024 End: 09-03-2024 Admission to same day surgery center [facility] MAIN OR Comment on above: OPEN REPAIR OF INCARCERATED RECURRENT IN CISIONAL HERNIA REPAIR WITH MESH EXCISION AND REPLACEMENT COMPONENT SEPARATION PANNICULECTOMY [36718 (CPT )] OPEN REPAIR OF INCAR CERATED RECURRENT INCISIONAL HERNIA REPAIR WITH MESH EXCISION, MESH REPLACEMENT [45501 (CPT )] Start: 09-03-2024 End: 09-03-2024 Excision skin abd infraumbilical panniculectomy EXCISION EXCESSIVE SKIN AND SUBCUTANEOUS TISSUE ABDOMEN (LIPECTOMY) INFRAUMBILICAL PANNICULECTOMY Incisional hernia without obstruction or gangrene 09/03/2024 10:30 AM EST [facility] Operating Room Start: 09-03-2024 End: 09-03-2024 Musc myocutaneous/fasciocutaneous flap trunk MYOCUTANEOUS FLAP TRUNK Incisional hernia without obstruction or gangrene 09/03/2024 10:30 AM EST [facility] Operating Room Start: 09-03-2024 End: 09-03-2024 Repair of anterior abdominal hernia(s) any approach initial, including implantation of mesh or other prosthesis when performed, total length of defect(s); 3 cm to 10 cm, incarcerated or strangulated Repair of anterior abdominal hernia(s) any approach initial, including implantation of mesh or other prosthesis when performed, total length of defect(s); 3 cm to 10 cm, incarcerated or strangulated Incisional hernia without obstruction or gangrene 09/03/2024 10:30 AM EST [facility] Operating Room Start: 09-03-2024 Subsequent hospital visit by physician 09/03/2024 10:30 AM EST Hospital Encounter [facility] MA[facility] [address] [facility] [place] [address] [place] [address] [place] [address] [facility] MAIN OR Start: 08-31-2024 End: 08-31-2024 Patient encounter procedure 08/31/2024 2:15 PM EST Office Visit [facility] Lap[facility] Surgery - Green [address] [place] [phone] [facility], [address] [place] [address] [employer] Laparoscopic Surgery - Green Start: 08-31-2024 End: 08-31-2025 CT Abdomen and Pelvis WO contrast CT abdomen pelvis wo IV contrast Imaging Routine Encounter for postoperative care Postoperative abdominal pain Abdominal fluid collection History of incisional hernia repair Expected: 08/31/2024, Expires: 08/31/2025 [facility] [employer] [facility] Work Phone: Comment on above: Expected: 08/31/2024, Expires: Start: 08-27-2024 End: 08-27-2024 Admission to [facility] Pre-Admit Testing Start: 08-24-2024 End: 08-24-2024 Patient encounter procedure 08/24/2024 10:30 AM EST Office Visit [facility] Laparoscopic Surgery - [place] [address] [place] [phone] [facility], [facility] [address] [place] [address] [facility] Laparoscopic Surgery - Green Start: 08-21-2024 End: 08-21-2024 Patient encounter procedure 08/21/2024 1:40 PM [facility] [address] [place] [address] Nanci Diaz APRN.WIRE INSERTER [address] [place] [address] F/U from surg [facility] Comment on above: F/U from surg Start: 06-29-2024 End: 06-29-2024 Patient encounter procedure 06/29/2024 10:15 AM EDT Office Visit [facility] Advanced Laproscopic Surgery [address] [facility] [address] [place] [phone] Serafin Taylor DO [address] [facility] [address] [place] [address] [facility] Advanced Laproscopic Surgery Start: 06-28-2024 End: 06-28-2024 Patient encounter procedure [facility] Comment on above: [facility] Start: 06-10-2024 COVID-19 Vaccine ( season) COVID-19 Vaccine ( season) [facility] Start: 06-10-2024 Covid-19 Vaccine ( season) Covid-19 Vaccine ( season) [facility] Start: 06-10-2024 Influenza vaccination Influenza Vaccine (#1) [facility] Start: 05-15-2024 End: 05-15-2024 Patient encounter procedure 05/15/2024 3:30 [place] [address] Susan Mcmillan MD [address] [address] [address] [facility] Comment on above: [facility]ERNIA CONSULT Start: 05-03-2024 End: 05-03-2024 Patient encounter procedure 05/03/2024 1:30 PM EDT Office Visit [facility] [place] [address] [place] [address] Neela Steven MD [address] [place], [place] [phone] [facility] [place] Start: 04-03-2024 End: 04-03-2024 Patient encounter procedure 04/03/2024 11:40 AM EDT Office Visit [facility] [place] [address] [facility] [address] [place] [phone] [place] [address] [place] [address] Rd [address] [place], [place] [id number] [facility] [place] Start: 03-06-2024 End: 03-06-2024 Patient encounter procedure 03/06/2024 2:40 PM EDT Office Visit [facility] [place] [address] [facility] [address] [place] [phone] Neela Steven MD [address] [place], [place] [phone] [facility] [place] Start: 01-30-2024 End: 01-29-2025 Glucose [Mass/volume] in Serum or Plasma Glucose, random Lab Routine Screening for diabetes mellitus (DM) Expected: 01/30/2024 (Approximate), Expires: 01/29/2025 [facility] [employer] Comment on above: Expected: 01/30/2024 (Approximate), Expi res: 01/29/2025 Start: 01-30-2024 End: 01-29-2025 Hemoglobin A1c measurement Hemoglobin A1c Lab Routine Screening for diabetes mellitus (DM) Expected: 01/30/2024 (Approximate), Expires: 01/29/2025 [facility] [employer] [facility] Work Phone: Comment on above: Expected: 01/30/2024 (Approximate), Expi res: 01/29/2025 Start: 01-30-2024 End: 01-30-2024 Patient encounter procedure 01/30/2024 1:50 PM EDT Office Visit [facility] [place] [address] [place] [phone] Neela Steven MD [address] [place], [place] [address] [facility] [place] Start: 01-26-2024 End: 01-26-2024 Patient encounter procedure 01/26/2024 8:40 AM EDT Office Visit [facility] [place] [address] [place] [address] Neela Steven MD [address] [place], [place] [id number] [facility] [place] Start: 01-06-2024 End: 01-06-2024 Patient encounter procedure 01/06/2024 2:00 PM EDT Office Visit [place] [address] [place] [phone] [facility] [address] [place], [place] [phone] [facility] [place] [facility] Start: 01-03-2024 End: 01-03-2024 Patient encounter procedure 01/03/2024 2:00 PM EDT Office Visit [facility] [place] [address] [place] [phone] [facility] [address] [place] [address] [facility] [place] Start: 12-29-2023 End: 12-29-2023 Patient encounter procedure 12/29/2023 7:30 AM EDT Office Visit [facility] [place] [address] [place] [phone] Neela Steven MD [address] [place], [place] [id number] [facility] [place] Start: 12-02-2023 End: 11-18-2024 25-hydroxyvitamin D3 [Mass/volume] in Serum or Plasma Vitamin D Deficiency Screening (Vit D 25) Lab Routine Morbid obesity with BMI of 40.0-44.9, adult (HCC) Right lower quadrant abdominal pain Change in bowel function Ventral hernia with obstruction and without gangrene Expected: 12/02/2023 (Approximate), Expires: 11/18/2024 [facility] Comment on above: Expected: 12/02/2023 (Approximate), Expi res: 11/18/2024 Start: 12-02-2023 End: 11-18-2024 CBC panel - Blood by Automated count CBC Lab Routine Morbid obesity with BMI of 40.0-44.9, adult (HCC) Right lower quadrant abdominal pain Change in bowel function Ventral hernia with obstruction and without gangrene Expected: 12/02/2023 (Approximate), Expires: 11/18/2024 [facility] Comment on above: Expected: 12/02/2023 (Approximate), Expi res: 11/18/2024 Start: 12-02-2023 End: 11-18-2024 Cobalamin (Vitamin B12) [Mass/volume] in Serum or Plasma Vitamin B12 Lab Routine Morbid obesity with BMI of 40.0-44.9, adult (HCC) Right lower quadrant abdominal pain Change in bowel function Ventral hernia with obstruction and without gangrene Expected: 12/02/2023 (Approximate), Expires: 11/18/2024 [facility] Comment on above: Expected: 12/02/2023 (Approximate), Expi res: 11/18/2024 Start: 12-02-2023 End: 11-18-2024 Comprehensive metabolic 1998 panel - Serum or Plasma Comprehensive metabolic panel Lab Routine Morbid obesity with BMI of 40.0-44.9, adult (HCC) Right lower quadrant abdominal pain Change in bowel function Ventral hernia with obstruction and without gangrene Expected: 12/02/2023 (Approximate), Expires: 11/18/2024 [facility] Comment on above: Expected: 12/02/2023 (Approximate), Expi res: 11/18/2024 Start: 12-02-2023 End: 11-18-2024 Ferritin [Mass/volume] in Serum or Plasma Ferritin Lab Routine Morbid obesity with BMI of 40.0-44.9, adult (HCC) Right lower quadrant abdominal pain Change in bowel function Ventral hernia with obstruction and without gangrene Expected: 12/02/2023 (Approximate), Expires: 11/18/2024 [facility] [employer] Comment on above: Expected: 12/02/2023 (Approximate), Expi res: 11/18/2024 Start: 12-02-2023 End: 11-18-2024 Folate [Mass/volume] in Serum or Plasma Folate Lab Routine Morbid obesity with BMI of 40.0-44.9, adult (HCC) Right lower quadrant abdominal pain Change in bowel function Ventral hernia with obstruction and without gangrene Expected: 12/02/2023 (Approximate), Expires: 11/18/2024 [facility] [employer] Comment on above: Expected: 12/02/2023 (Approximate), Expi res: 11/18/2024 Start: 12-02-2023 End: 11-18-2024 Hemoglobin A1c measurement Hemoglobin A1c Lab Routine Morbid obesity with BMI of 40.0-44.9, adult (HCC) Right lower quadrant abdominal pain Change in bowel function Ventral hernia with obstruction and without gangrene Expected: 12/02/2023 (Approximate), Expires: 11/18/2024 [facility] [employer] Work Phone: Comment on above: Expected: 12/02/2023 (Approximate), Expi res: 11/18/2024 Start: 12-02-2023 End: 11-18-2024 Iron and Iron binding capacity panel - Serum or Plasma Iron Lab Routine Morbid obesity with BMI of 40.0-44.9, adult (HCC) Right lower quadrant abdominal pain Change in bowel function Ventral hernia with obstruction and without gangrene Expected: 12/02/2023 (Approximate), Expires: 11/18/2024 [facility] [employer] Comment on above: Expected: 12/02/2023 (Approximate), Expi res: 11/18/2024 Start: 12-02-2023 End: 11-18-2024 Lipid 1996 panel - Serum or Plasma Lipid panel Lab Routine Morbid obesity with BMI of 40.0-44.9, adult (HCC) Right lower quadrant abdominal pain Change in bowel function Ventral hernia with obstruction and without gangrene Expected: 12/02/2023 (Approximate), Expires: 11/18/2024 [facility] Comment on above: Expected: 12/02/2023 (Approximate), Expi res: 11/18/2024 Start: 12-02-2023 End: 11-18-2024 Magnesium [Mass/volume] in Serum or Plasma Magnesium Lab Routine Morbid obesity with BMI of 40.0-44.9, adult (HCC) Right lower quadrant abdominal pain Change in bowel function Ventral hernia with obstruction and without gangrene Expected: 12/02/2023 (Approximate), Expires: 11/18/2024 [facility] Comment on above: Expected: 12/02/2023 (Approximate), Expi res: 11/18/2024 Start: 12-02-2023 End: 11-18-2024 RF Upper gastrointestinal tract and Small bowel Single view W contrast PO FL upper GI single contrast w small bowel follow through Imaging Routine Morbid obesity with BMI of 40.0-44.9, adult (HCC) Right lower quadrant abdominal pain Change in bowel function Ventral hernia with obstruction and without gangrene Expected: 12/02/2023 (Approximate), Expires: 11/18/2024 [facility] Comment on above: Expected: 12/02/2023 (Approximate), Expi res: 11/18/2024 Start: 12-02-2023 End: 11-18-2024 Thyrotropin [Units/volume] in Serum or Plasma TSH Lab Routine Morbid obesity with BMI of 40.0-44.9, adult (HCC) Right lower quadrant abdominal pain Change in bowel function Ventral hernia with obstruction and without gangrene Expected: 12/02/2023 (Approximate), Expires: 11/18/2024 [facility] Comment on above: Expected: 12/02/2023 (Approximate), Expi res: 11/18/2024 Start: 12-02-2023 End: 11-18-2024 Vitamin B1, whole blood Vitamin B1, whole blood Lab Routine Morbid obesity with BMI of 40.0-44.9, adult (HCC) Right lower quadrant abdominal pain Change in bowel function Ventral hernia with obstruction and without gangrene Expected: 12/02/2023 (Approximate), Expires: 11/18/2024 [facility] Comment on above: Expected: 12/02/2023 (Approximate), Expi res: 11/18/2024 Start: 12-02-2023 End: 11-18-2024 Zinc Zinc Lab Routine Morbid obesity with BMI of 40.0-44.9, adult (HCC) Right lower quadrant abdominal pain Change in bowel function Ventral hernia with obstruction and without gangrene Expected: 12/02/2023 (Approximate), Expires: 11/18/2024 [facility] Comment on above: Expected: 12/02/2023 (Approximate), Expi res: 11/18/2024 Start: 12-01-2023 End: 12-01-2023 Clinical Support [facility] Start: 11-29-2023 End: 11-29-2023 Admission to same day surgery center 11/29/2023 7:30 AM EST - 11/29/2023 8:30 AM EST Surgery [facility] [address] [place] [phone] [facility] [address] [place] [address] ESOPHAGOGASTRODUODENOSCOPY WITH BIOPSY, COLONOSCOPY WITH BIOPSY [30876 (CPT )] [facility] Comment on above: ESOPHAGOGASTRODUODENOSCOPY WITH BIOPSY, COLONOSCOPY WITH BIOPSY [02555 (CPT )] Start: 11-29-2023 End: 11-29-2023 Colonoscopy w/biopsy single/multiple [facility] Start: 11-29-2023 End: 11-29-2023 Egd transoral biopsy single/multiple [facility] Start: 11-29-2023 Subsequent hospital visit by physician 11/29/2023 7:30 AM EST Hospital Encounter [facility] [address] [place] [phone] [facility] [address] [place] [address] [facility] Start: 11-15-2023 End: 11-15-2023 Patient encounter procedure 11/15/2023 2:05 PM EST Consult [facility] [address] [facility] [address] [place] [phone] [facility] [address] [place] [address] [facility] Start: 11-15-2023 End: 11-15-2024 RF Upper gastrointestinal tract and Small bowel Single view W contrast PO FL upper GI single contrast w small bowel follow through Imaging Routine Ventral hernia with obstruction and without gangrene Right lower quadrant abdominal pain Expected: 11/15/2023, Expires: 11/15/2024 [facility] Work Phone: Comment on above: Expected: 11/15/2023, Expires: Start: 07-13-2023 End: 07-13-2023 Patient encounter procedure 07/13/2023 11:15 AM EDT Office Visit General and Gastrointestinal Surgery [facility] [address] [place] [phone] Tom Koehler MD [address] [facility] [place] [address] [place] [phone] General and Gastrointestinal Surgery [facility] Start: 06-10-2023 COVID-19 Vaccine ( season) COVID-19 Vaccine ( season) [facility] Start: 06-10-2023 Influenza vaccination [facility] Start: 03-23-2023 End: 03-23-2023 Patient encounter procedure 03/23/2023 Office Visit General Surgery Tom Koehler MD [address] [place] [phone] General and Gastrointestinal Surgery [facility] Start: 07-30-2022 Lipase measurement [facility] Work Phone: Start: 07-30-2022 [facility] Work Phone: Start: 07-30-2022 Computed tomography of abdomen and pelvis with intravenous contrast Abdomen/Pelvis W IV Cont ONLY [facility] Work Phone: Start: 09-01-2022 Influenza vaccination [facility] Start: 06-10-2021 Influenza vaccination [facility] Start: 04-09-2018 PAP TESTING PAP TESTING [facility] Start: 04-09-2018 Screening for malignant neoplasm of cervix Pap Testing [facility] Start: 08-04-2016 End: 08-04-2016 Physical Therapy General Physical Therapy [facility], [address] [place] [address], [address] [facility] Work Phone: Start: 07-28-2016 End: 07-28-2016 Mri jnt of lwr extre w/o dye [facility]: Start: 04-09-2016 Screening for malignant neoplasm of cervix Cervical Cancer Screening [facility] Start: 2015 HPV TESTING HPV TESTING [facility] Start: 2015 Screening for malignant neoplasm of cervix [facility] Start: 09-04-2013 Pneumococcal Vaccine: Pediatrics (0 to 5 Years) and At-Risk Patients (6 to 49 Years) (2 of 2 - PPSV23) Pneumococcal Vaccine: Pediatrics (0 to 5 Years) and At-Risk Patients (6 to 49 Years) (2 of 2 - PPSV23) [facility] Start: 09-04-2013 Pneumococcal Vaccine: Pediatrics (0 to 5 Years) and At-Risk Patients (6 to 64 Years) (2 of 2 - PPSV23 or PCV20) Pneumococcal Vaccine: Pediatrics (0 to 5 Years) and At-Risk Patients (6 to 64 Years) (2 of 2 - PPSV23 or PCV20) [facility] Start: 09-15-2012 Lipid panel Lipid Panel [facility] Start: 2012 HPV Vaccine (1 - 3-dose SCDM series) HPV Vaccine (1 - 3-dose SCDM series) [facility] Start: 11-09-2011 End: 11-19-2011 Chest x-ray X-Ray, Chest, PA & Lateral [facility] [employer] Work Phone: Start: 11-09-2011 End: 11-09-2011 Follow Up Appt 2 weeks Follow Up Appt 2 weeks [facility] [employer] Work Phone: Start: 10-26-2011 End: 11-03-2011 Urinalysis nonauto w/o scope UA Dipstick (Office) [facility] Work Phone: Start: 10-26-2011 End: 10-28-2011 Urine, test (choriogonadotropin presence) Urine (Office) [facility] [employer] Work Phone: Start: 10-13-2011 End: 10-13-2011 Follow up Appt 1 week Follow up Appt 1 week [facility] [employer] Work Phone: Start: 10-13-2011 End: 10-13-2011 Urine, test (choriogonadotropin presence) Urine (Office) [facility] [employer] Work Phone: Start: 09-15-2011 End: 09-15-2011 *CMP Complete Metabolic Panel *CMP Complete Metabolic Panel [facility] Work Phone: Start: 09-15-2011 End: 09-15-2011 Follow Up Appt 2 weeks Follow Up Appt 2 weeks [facility] [employer] Work Phone: Start: 09-15-2011 End: 09-15-2011 HbA1c *HgA1C [facility] [employer] Work Phone: Start: 09-15-2011 End: 09-15-2011 Lipid panel [AGGREGATE] *Lipid Profile [facility] [employer] Work Phone: Start: 09-15-2011 End: 09-15-2011 Thyroid stimulating hormone (TSH) *TSH [facility] Work Phone: Start: 2006 Screening for malignant neoplasm of cervix [facility] Start: 2004 DTaP/Tdap/Td Vaccines (1 - Tdap) DTaP/Tdap/Td Vaccines (1 - Tdap) [facility] Start: 2004 Hepatitis A Vaccines (1 of 2 - Risk 2-dose series) Hepatitis A Vaccines (1 of 2 - Risk 2-dose series) [facility] Start: 2004 Hepatitis B Vaccine (1 of 3 - 19+ 3-dose series) Hepatitis B Vaccine (1 of 3 - 19+ 3-dose series) [facility] Start: 2004 Hepatitis B Vaccines (1 of 3 - 19+ 3-dose series) Hepatitis B Vaccines (1 of 3 - 19+ 3-dose series) [facility] Start: 2004 Third diphtheria, tetanus and acellular pertussis (DTaP) vaccination TDAP (ADULT) [facility] Start: 2004 Urine microalbumin profile [facility] Start: 2003 Diabetes mellitus screening Diabetes Screening [facility] Start: 2003 Diabetes: Urine Albumin-Creatinine Ratio for Kidney Health Diabetes: Urine Albumin-Creatinine Ratio for Kidney Health [facility] Start: 2003 Hepatitis C screening Hepatitis C Screening [facility] Start: 2003 HEPATITIS C SCREENING HEPATITIS C SCREENING [facility] Start: 2003 HIV SCREENING HIV SCREENING [facility] Start: 2003 HIV screening HIV Screening [facility] Start: 2000 HIV screening [facility] Start: 1998 Varicella vaccination Varicella Vaccines (1 of 2 - 13+ 2-dose series) [facility] Start: 1997 COVID-19 Vaccine (1) COVID-19 Vaccine (1) [facility] Start: 1997 Depression Monitoring Depression Monitoring [facility] Start: 1997 Depression screening using PHQ-9 (Patient Health Questionnaire 9) score [facility] Start: 1995 Diabetic foot examination [facility] Start: 1995 Glaucoma screening Diabetes: Retinopathy Screening [facility] Start: 1995 Microalbumin measurement, urine, quantitative Urine Microalbumin [facility] Start: 1995 Ophthalmic examination and evaluation Ophthalmology Exam [facility] Start: 1995 Preventive dental service Diabetes: Dental Exam [facility] Start: 1990 COVID-19 VACCINE (#1) COVID-19 VACCINE (#1) [facility] Start: 1990 COVID-19 Vaccine (1) COVID-19 Vaccine (1) [facility] Start: 1988 History and physical examination, annual for health maintenance Wellness Visit [facility] Start: 1986 MMR Vaccines (1 of 1 - Standard series) MMR Vaccines (1 of 1 - Standard series) [facility] Start: 1986 Varicella vaccination Varicella Vaccines (1 of 2 - 2-dose childhood series) [facility] Start: 01-03-1986 COVID-19 VACCINE (#1) COVID-19 VACCINE (#1) [facility] Start: 1985 Hemoglobin A1c measurement [facility] Start: 1985 HEPATITIS B (1 of 3 - 3-dose series) HEPATITIS B (1 of 3 - 3-dose series) [facility] Start: 1985 Hepatitis B Vaccine (1 of 3 - 3-dose series) Hepatitis B Vaccine (1 of 3 - 3-dose series) [facility] Start: 1985 Hepatitis B Vaccines (1 of 3 - 3-dose series) Hepatitis B Vaccines (1 of 3 - 3-dose series) [facility] Start: 1985 Hepatitis C screening HEPATITIS C VIRUS SCREENING [facility] Start: 1985 HIV screening HIV Screening [facility] Start: 1985 Lipid panel Lipid Panel [facility] Start: 1985 Screening for malignant neoplasm of cervix Pap Smear [facility] Start: 1985 Tetanus vaccination [facility] Aerobic and Anaerobi c Culture with Stain [facility] Work Phone: Comment on above: Release Upon Ordering for 1 Occurrences starting 09/07/2024 End: 10-04-2024 Aerobic and Anaerobic Culture with Stain [facility] Work Phone: Comment on above: Once for 1 Occurrences starting 10/04/20 until 10/04/2024 Alanine aminotransfe rase [Enzymatic activity/volume] in Serum or Plasma [facility] Work Phone: Albumin [Mass/volume ] in Serum or Plasma [facility] Work Phone: Alkaline phosphatase [Enzymatic activity/volume] in Serum or Plasma [facility] Work Phone: Anion gap measurement [facility] Work Phone: Aspartate aminotrans ferase [Enzymatic activity/volume] in Serum or Plasma [facility] Work Phone: Bacteria identified in Unspecified specimen by Aerobe culture Culture, Aerobic Bacteria with Gram Stain Microbiology Routine Abdominal wall seroma, initial encounter 09/07/2024 10:03 AM [employer] Bacteria identified in Unspecified specimen by Aerobe culture Culture, Aerobic Bacteria with Gram Stain Microbiology Routine Abdominal wall seroma, initial encounter 10/04/2024 12:10 PM EST [employer] End: 09-07-2024 Bacteria identified in Unspecified specimen by Anaerobe culture [facility] [employer] Comment on above: Once for 1 Occurrences starting 09/07/20 until 09/07/2024 End: 10-04-2024 Bacteria identified in Unspecified specimen by Anaerobe culture [facility] [employer] Comment on above: Once for 1 Occurrences starting 10/04/20 until 10/04/2024 Bilirubin, total measurement [facility] Work Phone: BUN/Creatinine ratio [facility] Work Phone: Calcium [Mass/volume ] in Serum or Plasma [facility] Work Phone: Carbon dioxide, tota l [Moles/volume] in Serum or Plasma [facility] Work Phone: Chloride [Moles/volu me] in Serum or Plasma [facility] Work Phone: Choriogonadotropin.b eta subunit ( test) [Presence] in Serum or Plasma [facility] Work Phone: Creatinine [Moles/vo lume] in Serum or Plasma [facility] Work Phone: CT Abdomen Pelvis IV Contrast Only CT Abdomen Pelvis With IV Contrast Only Imaging [facility] 03/17/2021 9:47 AM EDT [facility] Glucose [Mass/volume ] in Serum or Plasma [facility] Work Phone: H/O: section Status pos t delivery Comments: x3 [facility] Comment on above: x3 H/O: tubal ligation History of tubal liga tion [facility] History of appendectomy History of append ectomy [facility] History of cholecystectomy Histo ry of laparoscopic cholecystectomy [facility] History of hernia repair History of hernia repair Comments: x4 [facility] Comment on above: x4 End: 04-10-2024 Lactic acid with reflex Lactic acid with reflex Lab Timed Once for 1 Occurrences starting 04/10/2024 until 04/10/2024 [facility] Work Phone: Comment on above: Once for 1 Occurrences starting 04/10/20 until 04/10/2024 End: 04-11-2024 Lactic acid with reflex Lactic acid with reflex Lab Timed Once for 1 Occurrences starting 04/11/2024 until 04/11/2024 [facility] Work Phone: Comment on above: Once for 1 Occurrences starting 04/11/20 until 04/11/2024 Lipase measurement [facility] Work Phone: Measurement of renal function [facility] Work Phone: Patient Education [facility] Work Phone: Patient referral [facility] Work Phone: Potassium [Moles/vol ume] in Serum or Plasma [facility] Work Phone: Sodium [Moles/volume ] in Serum or Plasma [facility] Work Phone: Tissue exam [facility] Work Phone: Comment on above: Release Upon Ordering for 1 Occurrences starting 11/29/2023 Tissue exam [facility] Work Phone: Comment on above: Release Upon Ordering for 1 Occurrences starting 08/06/2025, 1 completed Total protein measurement [facility] Work Phone: Urea nitrogen [Mass/ volume] in Serum or Plasma [facility] Work Phone: [facility] Immunizations Immunization Date Immunization Notes Care Provider [facility] 07-24-2024 influenza virus vaccine, unspecified formulation Nanci Diaz APRN.[employer] Work Phone: [facility] 07-19-2024 influenza virus vaccine, unspecified formulation Serafin Taylor DO Work Phone: [facility] 06-29-2023 influenza, injectable, quadrivalent, preservative free Neri Tanner MD Work Phone: [facility] 06-29-2023 influenza virus vaccine, unspecified formulation [facility] 07-10-2019 influenza, injectable, quadrivalent, preservative free Sally Gonzalez GINNY Work Phone: [facility] 07-10-2019 influenza virus vaccine, unspecified formulation Tom Koehler MD Work Phone: [facility] 10-10-2018 influenza, seasonal, injectable Serafin Mellert DO Work Phone: [facility] 07-07-2018 influenza, injectable, quadrivalent, preservative free; Translations: [Fluarix Quadrivalent ] LENNY LOPEZ MD [facility] 2018 Influenza virus vaccine [facility] Work Phone: 2018 influenza, seasonal, injectable, preservative free Serafin Mellert DO Work Phone: [facility] 10-12-2017 Influenza virus vaccine [facility] Work Phone: 10-12-2017 influenza, seasonal, injectable, preservative free Serafin Mellert DO Work Phone: [facility] 08-02-2013 Influenza virus vaccine [facility] Work Phone: 08-02-2013 influenza, seasonal, injectable, preservative free Serafin Mellert DO Work Phone: [facility] 07-10-2013 pneumococcal conjugate vaccine, 13 valent [facility] Work Phone: NEGATED: Highlighted row has not occurred!07-09-2025 influenza, injectable, madin chente canine kidney, preservative free Jacquelinesade Orozco DO Work Phone: [facility] Comment on above: Deferred: Patient Re fused - pt refused at this time Payers Date Payer Category Payer Commercial Managed Care - HMO [id number] 2024 Unknown [id number] 2022 Self-pay 2019 Unknown 2019 Private Health Insurance 2018 Medicaid [id number] 2018 Medicaid [id number] 2018 Medicaid [id number] 15 2016 Medicaid [id number] 1985 Unknown [id number] 2.16.84 [id number] 1985 Unknown [id number] 2.16.840.1.920959.3.579.2.903 1985 Unknown [id number] 2.16.840.1.580483.3.579.2.903 1985 Unknown [id number] 2.16.840.1.346458.3.579.2.903 1985 Unknown [id number] 2.16.840.1.057180.3.579.2.1069 1985 Unknown [id number] 2.16.8 40.1.887490.3.579.2.651 1985 Unknown [id number] 2.16.8 40.1.282018.3.579.2.651 1985 Unknown [id number] 2.16.84 0.1.805567.3.579.2.651 1985 Unknown [id number] 2.16.84 0.1.246967.3.579.2.651 1985 Unknown [id number] 2.16.84 0.1.893699.3.579.2.651 1985 Unknown [id number] 2.16.84 0.1.951068.3.579.2.651 1985 Unknown [id number] 2.16.84 0.1.489984.3.579.2.651 1985 Unknown [id number] 2.16.84 0.1.054319.3.579.2.651 1985 Unknown [id number] 2.16.840.1.531349.3.579.2.902 1985 Unknown [id number] 2.16.840.1.118246.3.579.2.902 1985 Unknown [id number] 2.16.840.1.585963.3.579.2.594 1985 Unknown [id number] 2.16.840.1.308024.3.579.2.594 1985 Unknown [id number] 2.16.840.1.203093.3.579.2.594 1985 Unknown [id number] 2.16.840.1.194648.3.579.2.594 1985 Unknown [id number] 2.16.840.1.819056.3.579.2.594 1985 Unknown [id number] 2.16.840.1.504212.3.579.2.627 Self-pay [id number] Unknown [id number] 2.16.8 40.1.135981.3.579.2.462 Unknown [id number] 2.16.8 40.1.560661.3.579.2.462 Unknown [id number] 2.16.8 40.1.198857.3.579.2.462 Social History Date Type Detail Facility Assertion Tobacco smoking consumption unknown (finding) [facility] Work Phone: Start: 03-17-2021 End: 09-13-2023 Tobacco smoking status NHIS Never smoker [facility] Start: 03-17-2021 End: 05-22-2025 Tobacco use and exposure Never used [facility] Start: 03-17-2021 End: 08-06-2025 Alcohol intake Ex-drinker (finding) [facility] Start: 1985 Sex Assigned At Not on file [facility] Start: 04-19-2021 End: 05-19-2021 Exposure to SARS-CoV-2 (event) Not sure [facility] Start: 08-20-2021 End: 05-22-2025 Tobacco smoking status NHIS Ex-smoker [facility] Start: 11-10-2010 End: 10-10-2020 History of tobacco use Current smoker [facility] Start: 11-10-2010 End: 10-10-2020 History of tobacco use Cigarette Smoker [facility] Start: 07-24-2013 End: 07-09-2025 Cigarettes smoked current (pack per day) - Reported 0.5 [facility] Comment on above: Mini Laparotomy , ly sis of Adhesions, ventral hernia repair Start: 08-21-2020 End: 12-16-2021 History SDOH Alcohol Frequency 1 [facility] Start: 08-21-2020 History SDOH Alcohol Std Drinks 98 [facility] Start: 08-05-2020 History SDOH Social Connections Phone 4 [facility] Start: 08-05-2020 End: 03-11-2023 History SDOH Social Connections Get Together 2 [facility] Start: 08-05-2020 End: 03-11-2023 History SDOH Social Connections Holiness 3 [facility] Start: 02-11-2020 History SDOH Social Connections Living 5 [facility] Start: 08-05-2020 Education 21 [facility] Start: 1985 Sex Assigned At Female C [facility] Start: 03-20-2022 End: 09-07-2022 Tobacco smoking status NHIS Unknown if ever smoked [facility] Work Phone: Start: 05-06-2020 None [facility] Work Phone: Start: 05-06-2020 Spouse/ Signif icant Other [facility] Work Phone: Start: 04-07-2021 Cigarettes [facility] Work Phone: Start: 01-20-2023 Tobacco Comment stopped 10/14/2021 [facility] Start: 06-27-2023 End: 07-09-2025 Tobacco use panel [facility] Start: 02-28-2019 Gender identity Identifies as female gender (finding) [facility] Start: 09-10-2012 Active Member of [facility] bs or Organizations Not on file [facility] How often to you hav e a drink containing alcohol? Never [facility] How hard is it for y ou to pay for the very basics like food, housing, medical care, and heating Somewhat hard [facility] Work Phone: Do you feel stress - tense, restless, nervous, or anxious, or unable to sleep at night because your mind is troubled all the time - these days [OSQ] Rather much [facility] (I/We) worried wheth er (my/our) food would run out before (I/we) got money to buy more. Sometimes true [facility] Work Phone: In the past 12 month s, was there a time when you were not able to pay the mortgage or rent on time? No [facility] Work Phone: Start: 02-28-2019 Sexual orientation Heterosexual (jackson tamez) [facility] In the past 12 month s, was there a time when you were not able to pay the mortgage or rent on time? Yes [facility] Are you now , , , , never or living with a partner? [facility] How hard is it for y ou to pay for the very basics like food, housing, medical care, and heating Very hard [facility] Do you feel stress - tense, restless, nervous, or anxious, or unable to sleep at night because your mind is troubled all the time - these days [OSQ] Very much [facility] (I/We) worried wheth er (my/our) food would run out before (I/we) got money to buy more. Often true [facility] Start: 05-04-2024 Alcohol Comment rare glass of wine [facility] Start: 05-19-2021 Alcoholic beverage intake Not Asked [facility] Start: 11-19-2021 End: 05-10-2022 Sex Female (finding) [facility] How often to you hav e a drink containing alcohol? Monthly or less [facility] How many standard dr inks containing alcohol do you have on a typical day? 1 or 2 [facility] How often do you hav e 6 or more drinks on 1 occasion? Less than monthly [facility] (I/We) worried chastity er (my/our) food would run out before (I/we) got money to buy more. Never true [facility] Start: 05-22-2025 Tobacco Comment Patient states she quit smoking in 2020, no history of vaping or smokeless tobacco. Smoking cessation counseling not indicated. [employer] Sexual Orientation David Aguillon [employer] Medical Equipment Procedure Code Equipment Code Equipment Origin al Text Equipment Identifier Dates Repair, hernia, ventral or umbilical, laparoscopic CLIP,HEMOLOCK MED WECK FDA Start: 09-26-2018 Repair, hernia, ventral or umbilical, laparoscopic MESH,ECHO 15CM MESA GRANDE FDA Start: 09-26-2018 Repair, hernia, ventral or umbilical, laparoscopic TACKER,SECURE STRAP FDA Start: 09-26-2018 Repair, hernia, ventral or umbilical, laparoscopic TACKER,SECURE STRAP FDA Start: 09-26-2018 Repair, hernia, ventral or umbilical, laparoscopic CLIP,HEMOLOCK MED WECK FDA Start: 09-26-2018 Repair, hernia, ventral or umbilical, laparoscopic MESH,ECHO 15CM MESA GRANDE FDA Start: 09-26-2018 Repair, hernia, ventral or umbilical, laparoscopic TACKER,SECURE STRAP FDA Start: 09-26-2018 Repair, hernia, ventral or umbilical, laparoscopic TACKER,SECURE STRAP FDA Start: 09-26-2018 Repair, hernia, ventral or umbilical, laparoscopic CLIP,HEMOLOCK MED WECK FDA Start: 09-26-2018 Repair, hernia, ventral or umbilical, laparoscopic MESH,ECHO 15CM MESA GRANDE FDA Start: 09-26-2018 Repair, hernia, ventral or umbilical, laparoscopic TACKER,SECURE STRAP FDA Start: 09-26-2018 Repair, hernia, ventral or umbilical, laparoscopic TACKER,SECURE STRAP FDA Start: 09-26-2018 MESH,VENTLEX ST MED 6.4CM FDA Start: 07-12-2018 MESH,VENTLEX ST MED 6.4CM FDA Start: 07-12-2018 MESH,VENTLEX ST MED 6.4CM FDA Start: 07-12-2018 Mesh Surg Enform Pre [id number] - [id number] - [id number] Start: 08-07-2024 Functional Status Date Assessment Result Facility 07-30-2025 Total score [AUDIT-C] 0 07/30/20 25 2:44 PM EDT Denver Tabares RN [facility] 03-12-2023 Are you deaf, or do you have serious difficulty hearing No 03/12/2023 12:48 PM EDT Regis Sam RN No [facility] 03-12-2023 Are you blind, or do you have serious difficulty seeing, even when wearing glasses No 03/12/2023 12:48 PM EDT Regis Sam RN No [facility] 03-12-2023 Do you have serious difficulty walking or climbing stairs No 03/12/2023 12:48 PM EDT Regis Sam RN No [facility] 03-12-2023 Do you have difficul ty dressing or bathing No 03/12/2023 12:48 PM EDT Regis Sam RN No [facility] 03-12-2023 Because of a physica l, mental, or emotional condition, do you have difficulty doing errands alone such as visiting a physician's office or shopping No 03/12/2023 12:48 PM EDT Regis Sam RN No [facility] NEGATED: Highlighted row Functional performance Functional status health issues are not documented Disease [facility] Work Phone: Mental Status Date Assessment Result Facility 03-12-2023 Because of a physical, mental, or emotional condition, do you have serious difficulty concentrating, remembering, or making decisions No 03/12/2023 12:48 PM EDT Regis Sam RN No [facility] NEGATED: Highlighted row Cognitive function [Interpretation] Cognitive status health issues are not documented Disease [facility] Work Phone: Clinical Notes 06-10-2019 to 08-06-2025 Op Note - Serafin Taylor DO - 08/06/2025 8:49 AM EDTOp Note - Serafin Taylor DO - 08/06/2025 8:49 AM EDNorm Taylor DO - 08/06/2025 8:15 AM Elian Taylor DO - 08/06/2025 8:15 AM EDTAttachments Note Date & Type Note Facility 08-06-2025 Procedure note [facility] Patient Name: Mel Wall Procedure Date: 08/06/2025 8:49 AM Gender: Female Date of : 1985 Age: 40 Admit Type: Outpatient Note Status: Finalized Endoscopist: Serafin Taylor DO, [id number] Procedure: Upper GI endoscopy Indications: Epigastric abdominal pain, Nausea with vomiting Findings: Evidence of a duodenal switch was found in the entire examined stomach. This was characterized by healthy appearing mucosa, an intact appearance, no visible shilpa, no visible sutures and the presence of no stomal ulceration. The first portion of the duodenum was normal. The examined jejunum was normal. Localized minimal inflammation characterized by erythema was found in the gastric antrum. Biopsies were taken with a cold forceps for Helicobacter pylori testing. Verification of patient identification for the specimen was done by the physician and nurse using the patient's name and medical record number. Estimated blood loss was minimal. Impression: - A duodenal switch was found, characterized by no visible shilpa, no visible sutures, no stomal ulceration, an intact appearance and healthy appearing mucosa. - Normal first portion of the duodenum. - Normal examined jejunum. - Chronic gastritis, characterized by erythema. Biopsied. Recommendation: - Resume previous diet. - Continue present medications. - Patient has a contact number available for emergencies. The signs and symptoms of potential delayed complications were discussed with the patient. Return to normal activities tomorrow. Written discharge instructions were provided to the patient. Medicines: Monitored Anesthesia Care Procedure: Pre-Anesthesia Assessment: - Prior to the procedure, a History and Physical was performed, and patient medications and allergies were reviewed. The patient's tolerance of previous anesthesia was also reviewed. The risks and benefits of the procedure and the sedation options and risks were discussed with the patient. All questions were answered, and informed consent was obtained. Prior Anticoagulants: The patient has taken no anticoagulant or antiplatelet agents. ASA Grade Assessment: III - A patient with severe systemic disease. After reviewing the risks and benefits, the patient was deemed in satisfactory condition to undergo the procedure. - The anesthesia plan was to use monitored anesthesia care (MAC). After obtaining informed consent, the endoscope was passed under direct vision. Throughout the procedure, the patient's blood pressure, pulse, and oxygen saturations were monitored continuously. The Endoscope was introduced through the mouth, and advanced to the third part of duodenum. The upper GI endoscopy was accomplished without difficulty. The patient tolerated the procedure well. Complications: No immediate complications. Procedure Code(s): --- Professional --- 20103, Esophagogastroduodenoscopy, flexible, transoral; with biopsy, single or multiple --- Technical --- 33503, Esophagogastroduodenoscopy, flexible, transoral; with biopsy, single or multiple Diagnosis Code(s): --- Professional --- R11.2, Nausea with vomiting, unspecified R10.13, Epigastric pain K29.50, Unspecified chronic gastritis without bleeding Z98.84, Bariatric surgery status --- Technical --- R11.2, Nausea with vomiting, unspecified R10.13, Epigastric pain K29.50, Unspecified chronic gastritis without bleeding Z98.84, Bariatric surgery status CPT copyright 2021 [employer]. All rights reserved. The codes documented in this report are preliminary and upon tool distributor review may be revised to meet current compliance requirements. Attending Participation: I personally performed the entire procedure. Serafin Taylor DO 08/06/2025 9:18:16 AM This report has been signed electronically. Number of Addenda: 0 Note Initiated On: 08/06/2025 8:49 AM [facility] 08-06-2025 [facility] Name: Mel Wall Procedure Date: 08/06/2025 8:49 AM Gender: Female Date of : 1985 Age: 40 Admit Type: Outpatient Note Status: Finalized Endoscopist: Serafin Taylor DO, [id number] Procedure: Upper GI endoscopy Indications: Epigastric abdominal pain, Nausea with vomiting Findings: Evidence of a duodenal switch was found in the entire examined stomach. This was characterized by healthy appearing mucosa, an intact appearance, no visible shilpa, no visible sutures and the presence of no stomal ulceration. The first portion of the duodenum was normal. The examined jejunum was normal. Localized minimal inflammation characterized by erythema was found in the gastric antrum. Biopsies were taken with a cold forceps for Helicobacter pylori testing. Verification of patient identification for the specimen was done by the physician and nurse using the patient's name and medical record number. Estimated blood loss was minimal. Impression: - A duodenal switch was found, characterized by no visible shilpa, no visible sutures, no stomal ulceration, an intact appearance and healthy appearing mucosa. - Normal first portion of the duodenum. - Normal examined jejunum. - Chronic gastritis, characterized by erythema. Biopsied. Recommendation: - Resume previous diet. - Continue present medications. - Patient has a contact number available for emergencies. The signs and symptoms of potential delayed complications were discussed with the patient. Return to normal activities tomorrow. Written discharge instructions were provided to the patient. Medicines: Monitored Anesthesia Care Procedure: Pre-Anesthesia Assessment: - Prior to the procedure, a History and Physical was performed, and patient medications and allergies were reviewed. The patient's tolerance of previous anesthesia was also reviewed. The risks and benefits of the procedure and the sedation options and risks were discussed with the patient. All questions were answered, and informed consent was obtained. Prior Anticoagulants: The patient has taken no anticoagulant or antiplatelet agents. ASA Grade Assessment: III - A patient with severe systemic disease. After reviewing the risks and benefits, the patient was deemed in satisfactory condition to undergo the procedure. - The anesthesia plan was to use monitored anesthesia care (MAC). After obtaining informed consent, the endoscope was passed under direct vision. Throughout the procedure, the patient's blood pressure, pulse, and oxygen saturations were monitored continuously. The Endoscope was introduced through the mouth, and advanced to the third part of duodenum. The upper GI endoscopy was accomplished without difficulty. The patient tolerated the procedure well. Complications: No immediate complications. Procedure Code(s): --- Professional --- 08350, Esophagogastroduodenoscopy, flexible, transoral; with biopsy, single or multiple --- Technical --- 53557, Esophagogastroduodenoscopy, flexible, transoral; with biopsy, single or multiple Diagnosis Code(s): --- Professional --- R11.2, Nausea with vomiting, unspecified R10.13, Epigastric pain K29.50, Unspecified chronic gastritis without bleeding Z98.84, Bariatric surgery status --- Technical --- R11.2, Nausea with vomiting, unspecified R10.13, Epigastric pain K29.50, Unspecified chronic gastritis without bleeding Z98.84, Bariatric surgery status CPT copyright 2021 [employer]. All rights reserved. The codes documented in this report are preliminary and upon tool distributor review may be revised to meet current compliance requirements. Attending Participation: I personally performed the entire procedure. Serafin Taylor DO 08/06/2025 9:18:16 AM This report has been signed electronically. Number of Addenda: 0 Note Initiated On: 08/06/2025 8:49 AM documented in this encounter [facility] 08-06-2025 History and physical note Images from the original note were not included. Department of Surgery Preoperative H&P PATIENT NAME: Mel Wall : 1985 ATTENDING PHYSICIAN: Serafin Taylor DO ADMIT DATE: 08/06/2025 TODAY'S DATE: 08/06/2025 Past Medical History: Medical History[1] Past Surgical History: Surgical History[2] Current Medications: Current Medications[3] Allergies: Allergies[4] Social History: Social History Socioeconomic History Marital status: Spouse name: Not on file Number of children: Not on file Years of education: Not on file Highest education level: Not on file Occupational History Not on file Tobacco Use Smoking status: Former Current packs/day: 0.00 Types: Cigarettes Quit date: 2020 Years since quittin.8 Smokeless tobacco: Never Tobacco comments: Patient states she quit smoking in 2020, no history of vaping or smokeless tobacco. Smoking cessation counseling not indicated. Vaping Use Vaping status: Never Used Substance and Sexual Activity Alcohol use: Not Currently Drug use: Yes Frequency: 2.0 times per week Types: Marijuana Comment: edibles Sexual activity: Not Currently Other Topics Concern Not on file Social History Narrative Not on file Social Drivers of Health Financial Resource Strain: Low Risk (05/24/2025) Overall Financial Resource Strain (CARDIA) Difficulty of Paying Living Expenses: Not hard at all Food Insecurity: No Food Insecurity (07/09/2025) Hunger Vital Sign Worried About Running Out of Food in the Last Year: Never true Ran Out of Food in the Last Year: Never true Transportation Needs: No Transportation Needs (07/09/2025) PRAPARE - Transportation Lack of Transportation (Medical): No Lack of Transportation (Non-Medical): No Physical Activity: Insufficiently Active (05/24/2025) Exercise Vital Sign Days of Exercise per Week: 2 days Minutes of Exercise per Session: 30 min Stress: Stress Concern Present (04/24/2024) [employer] - Occupational Stress Questionnaire Feeling of Stress : Very much Social Connections: Moderately Integrated (04/24/2024) Social Connection and Isolation Panel [NHANES] Frequency of Communication with Friends and Family: Twice a week Frequency of Social Gatherings with Friends and Family: Once a week Attends Adventism Services: More than 4 times per year Active Member of Clubs or Organizations: No Attends Club or Organization Meetings: More than 4 times per year Marital Status: Intimate Partner Violence: Not At Risk (07/09/2025) Humiliation, Afraid, Rape, and Kick questionnaire Fear of Current or Ex-Partner: No Emotionally Abused: No Physically Abused: No Sexually Abused: No Housing Stability: Low Risk (07/09/2025) Housing Stability Vital Sign Unable to Pay for Housing in the Last Year: No Number of Times Moved in the Last Year: 0 Homeless in the Last Year: No Family History: Family History[5] IMPRESSION & PLAN: I have interviewed and examined the patient and reviewed the recent History and Physical. There have been no changes to the recent H&P documentation. The risks, benefits, expected outcomes, and alternatives to the recommended procedure have been discussed with the patient. Patient understands and wishes to proceed with the procedure. The surgical consent form has been signed. The surgical site has been marked as appropriate. 40 y.o. 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 Partial obstruction of small intestine (HCC) 06/13/2024 [2] Past Surgical History: Procedure Laterality Date APPENDECTOMY BILIOPANCREATIC DIVERSION 10/23/2008 Sherie @ [facility]; janel-en-y duodenojejunostomy for bile reflux CHOLECYSTECTOMY 02/2007 lap COLONOSCOPY N/A 11/29/2023 [facility]; repeat in 11/2033 EXPLORATORY LAPAROTOMY 06/10/2019 Veronica @ [facility]; ex lap, [facility] INCISION AND DRAINAGE OF WOUND 08/09/2013 [facility]; I&D of surgical incision of LLQ INCISIONAL HERNIA REPAIR 10/20/2017 [facility]; open primary repair INCISIONAL HERNIA REPAIR 07/12/2018 [facility]; open w/ mesh INCISIONAL HERNIA REPAIR 09/26/2018 [facility]; lap w/ mesh INCISIONAL HERNIA REPAIR 03/11/2020 [facility]; repair w/ mesh excision, mesh replacement ([facility] Mesh w/ Echo), [facility] INCISIONAL HERNIA REPAIR 07/19/2015 [facility]; open repair w/ mesh INCISIONAL HERNIA REPAIR 08/07/2024 [facility]; an open recurrent repair w/ mesh, [facility], TAR, removal of infarcted cecal epiploic appendage PANNICULECTOMY (HISTORICAL) 08/07/2024 [facility] SOFT TISSUE MASS EXCISION 08/02/2013 [facility]; STM excision of LLQ TONSILLECTOMY [3] Current Facility-Administered Medications Medication Dose Route Frequency Provider Last Rate Last Admin sodium chloride 0.9 % infusion 5-250 mL/hr IntraVENous PRN HALEIGH Richard-Simon sodium chloride 0.9% (NS) flush 10 mL 10 mL IntraVENous 2 times per day Za Chey PA-Simon sodium chloride 0.9% (NS) flush 10 mL 10 mL IntraVENous PRN HALEIGH Richard-Simon [4] Allergies Allergen Reactions Ketorolac Hives and Shortness of breath Other reaction(s): Hives Ondansetron Shortness of breath and Hives Other reaction(s): Hives, Respiratory distress Seasonal Itching and Other Stuffy nose [5] Family History Problem Relation Name Age of Onset Hypertension Father Diabetes Father [facility] Work Phone: 08-06-2025 Note [facility] 08-06-2025 History and physical note Images from the original note were not included. Department of Surgery Preoperative H&P PATIENT NAME: Mel Wall : 1985 ATTENDING PHYSICIAN: Serafin Taylor DO ADMIT DATE: 08/06/2025 TODAY'S DATE: 08/06/2025 Past Medical History: Medical History[1] Past Surgical History: Surgical History[2] Current Medications: Current Medications[3] Allergies: Allergies[4] Social History: Social History Socioeconomic History Marital status: Spouse name: Not on file Number of children: Not on file Years of education: Not on file Highest education level: Not on file Occupational History Not on file Tobacco Use Smoking status: Former Current packs/day: 0.00 Types: Cigarettes Quit date: 2020 Years since quittin.8 Smokeless tobacco: Never Tobacco comments: Patient states she quit smoking in 2020, no history of vaping or smokeless tobacco. Smoking cessation counseling not indicated. Vaping Use Vaping status: Never Used Substance and Sexual Activity Alcohol use: Not Currently Drug use: Yes Frequency: 2.0 times per week Types: Marijuana Comment: edibles Sexual activity: Not Currently Other Topics Concern Not on file Social History Narrative Not on file Social Drivers of Health Financial Resource Strain: Low Risk (05/24/2025) Overall Financial Resource Strain (CARDIA) Difficulty of Paying Living Expenses: Not hard at all Food Insecurity: No Food Insecurity (07/09/2025) Hunger Vital Sign Worried About Running Out of Food in the Last Year: Never true Ran Out of Food in the Last Year: Never true Transportation Needs: No Transportation Needs (07/09/2025) PRAPARE - Transportation Lack of Transportation (Medical): No Lack of Transportation (Non-Medical): No Physical Activity: Insufficiently Active (05/24/2025) Exercise Vital Sign Days of Exercise per Week: 2 days Minutes of Exercise per Session: 30 min Stress: Stress Concern Present (04/24/2024) [employer] [employer] - Occupational Stress Questionnaire Feeling of Stress : Very much Social Connections: Moderately Integrated (04/24/2024) Social Connection and Isolation Panel [NHANES] Frequency of Communication with Friends and Family: Twice a week Frequency of Social Gatherings with Friends and Family: Once a week Attends Adventism Services: More than 4 times per year Active Member of Clubs or Organizations: No Attends Club or Organization Meetings: More than 4 times per year Marital Status: Intimate Partner Violence: Not At Risk (07/09/2025) Humiliation, Afraid, Rape, and Kick questionnaire Fear of Current or Ex-Partner: No Emotionally Abused: No Physically Abused: No Sexually Abused: No Housing Stability: Low Risk (07/09/2025) Housing Stability Vital Sign Unable to Pay for Housing in the Last Year: No Number of Times Moved in the Last Year: 0 Homeless in the Last Year: No Family History: Family History[5] IMPRESSION & PLAN: I have interviewed and examined the patient and reviewed the recent History and Physical. There have been no changes to the recent H&P documentation. The risks, benefits, expected outcomes, and alternatives to the recommended procedure have been discussed with the patient. Patient understands and wishes to proceed with the procedure. The surgical consent form has been signed. The surgical site has been marked as appropriate. 40 y.o. 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 Partial obstruction of small intestine (HCC) 06/13/2024 [2] Past Surgical History: Procedure Laterality Date APPENDECTOMY BILIOPANCREATIC DIVERSION 10/23/2008 Sherie @ [facility]; janel-en-y duodenojejunostomy for bile reflux CHOLECYSTECTOMY 02/2007 lap COLONOSCOPY N/A 11/29/2023 [facility]; repeat in 11/2033 EXPLORATORY LAPAROTOMY 06/10/2019 Veronica @ [facility]; ex lap, [facility] INCISION AND DRAINAGE OF WOUND 08/09/2013 [facility]; I&D of surgical incision of LLQ INCISIONAL HERNIA REPAIR 10/20/2017 [facility]; open primary repair INCISIONAL HERNIA REPAIR 07/12/2018 [facility]; open w/ mesh INCISIONAL HERNIA REPAIR 09/26/2018 [facility]; lap w/ mesh INCISIONAL HERNIA REPAIR 03/11/2020 [facility]; repair w/ mesh excision, mesh replacement ([facility] Mesh w/ Echo), [facility] INCISIONAL HERNIA REPAIR 07/19/2015 [facility]; open repair w/ mesh INCISIONAL HERNIA REPAIR 08/07/2024 [facility]; an open recurrent repair w/ mesh, [facility], TAR, removal of infarcted cecal epiploic appendage PANNICULECTOMY (HISTORICAL) 08/07/2024 [facility] SOFT TISSUE MASS EXCISION 08/02/2013 [facility]; STM excision of LLQ TONSILLECTOMY [3] Current Facility-Administered Medications Medication Dose Route Frequency Provider Last Rate Last Admin sodium chloride 0.9 % infusion 5-250 mL/hr IntraVENous PRN Za Chey, PA-C sodium chloride 0.9% (NS) flush 10 mL 10 mL IntraVENous 2 times per day Za Chey, PA-C sodium chloride 0.9% (NS) flush 10 mL 10 mL IntraVENous PRN Za Chey PA-C [4] Allergies Allergen Reactions Ketorolac Hives and Shortness of breath Other reaction(s): Hives Ondansetron Shortness of breath and Hives Other reaction(s): Hives, Respiratory distress Seasonal Itching and Other Stuffy nose [5] Family History Problem Relation Name Age of Onset Hypertension Father Diabetes Father documented in this encounter [facility] 07-30-2025 Emergency department Note Patient provided with & educated on discharge paperwork. Patient educated on follow up care. Patient verbalized understanding with no further questions or concerns. Patient stable, A&Ox4, ambulatory with steady gait, and had even & unlabored respirations upon leaving the ED. Patient left ED with all belongings. [facility] 07-30-2025 Emergency department Note Patient provided with & educated on discharge paperwork. Patient educated on follow up care. Patient verbalized understanding with no further questions or concerns. Patient stable, A&Ox4, ambulatory with steady gait, and had even & unlabored respirations upon leaving the ED. Patient left ED with all belongings. Emergency Department Encounter [facility] EMERGENCY DEPT Patient: Mel Wall : 1985 I independently examined and evaluated Mel Wall. This will serve as my Supervisory note and shared attestation. I performed a substantive portion of the visit including all aspects of the Medical Decision Making. In brief: hx janel-en-y with GJ anastomosis 2008, multiple ventral hernia repairs, panniculectomy on 08/07/2024, complaining of 1 hour of increasing epigastric pain followed by syncopal episode in which she hit her head. Focused exam: Constitutional: Well-developed and well-nourished. No distress. Abdominal: Soft. Mild epigastric tenderness. No distension or guarding. Skin: Skin is warm and dry. Psychiatric: Normal mood and affect. Brief ED course/MDM: Differential diagnoses include GJ or anastomotic ulcer, perforated viscus, SBO, biliary colic or cholecystitis, acute pancreatitis, acute coronary syndrome, ectopic , arrhythmia. I reviewed the workup including an unremarkable CBC, CMP showing mild hypokalemia (replenished), mildly low bicarb with mildly elevated anion gap, UA not convincing for UTI, urine negative, troponin normal, lipase normal. CT abdomen pelvis did not identify an explanation for the pain but did identify a mass from the kidney which I personally notified the patient of and indicated need for follow-up MRI to ensure it is not cancerous. I considered obtaining CT head to assess for ICH, but she was observed in the ED for 6 hours with no concern arising for ICH. Case was discussed with geriatrics who recommended discharge, anticipating upcoming upper endoscopy in 1 week. Diagnoses as of 07/30/252153 Pain of upper abdomen Syncope and collapse ED medications managed: Medications sodium chloride 0.9 % bolus 500 mL (0 mL IntraVENous Stopped 07/30/25 1606) metoclopramide (Reglan) injection 10 mg (10 mg IntraVENous Given 07/30/25 1531) iopamidol (Isovue-370) 76 % injection 75 mL (75 mL IntraVENous Given 07/30/25 1558) HYDROmorphone (Dilaudid) injection 0.5 mg (0.5 mg IntraVENous Given 07/30/25 1801) potassium chloride (Klor-Con) packet 40 mEq (40 mEq Oral Given 07/30/251858) sodium chloride 0.9 % bolus 500 mL (0 mL IntraVENous Stopped 07/30/252005) HYDROmorphone (Dilaudid) injection 0.5 mg (0.5 mg IntraVENous Given 07/30/251937) dicyclomine (Bentyl) capsule 10 mg (10 mg Oral Given 07/30/251948) acetaminophen (Tylenol) tablet 1,000 mg (1,000 mg Oral Given 07/30/251935) Chronic conditions and social determinants of health affecting care: Bariatric surgery I made diagnostic, treatment, and disposition decisions in conjunction with the resident. I also supervised solares portions of any procedures performed by the resident. For all further details of the patient's emergency department visit, please see his/her documentation. MD Regina Salinas MD 07/30/252153 documented in this encounter [facility] 07-30-2025 Hospital Discharge instructions -Arielle Martinez MD - 07/30/2025 6:57 PM EDT You presented to the emergency department with concerns for abdominal pain with loss of consciousness. While in the emergency department your vitals were obtained, and you received a physical examination with appropriate testing for your current complaint. As we discussed at bedside, your CT at this time did show a new mass on your left kidney. You were evaluated by our bariatric surgery team. At this time they did not find any acute concerns for additional intervention inpatient. They recommend you follow-up with Dr. Brooks outpatient for an EGD. Please come back to the emergency department if you have additional loss of consciousness, have worsening pain or abdominal distention, or associated altered mental status or fevers or chills. Please follow-up with your PCP or establish one for further evaluation management outpatient. Please follow up with any additional referral listed to establish any further outpatient management. Your CT finding for today that should be evaluated outpatient is: 1.5 cm exophytic mass arising from the posterior left mid kidney measures slightly above simple fluid attenuation, mildly increased in size from 1.2 cm in 2022. This may be a proteinaceous or hemorrhagic cyst although soft tissue mass cannot be excluded. MRI with and without contrast recommended for further evaluation. The following attachments cannot be sent through Care Everywhere.Syncope (Fainting) (Somali)documented in this encounter [facility] 07-30-2025 Physician Emergency department Note Emergency Department Encounter [facility] EMERGENCY DEPT Patient: Mel Wall : 1985 I independently examined and evaluated Mel Wall. This will serve as my Supervisory note and shared attestation. I performed a substantive portion of the visit including all aspects of the Medical Decision Making. In brief: hx janel-en-y with GJ anastomosis 2008, multiple ventral hernia repairs, panniculectomy on 08/07/2024, complaining of 1 hour of increasing epigastric pain followed by syncopal episode in which she hit her head. Focused exam: Constitutional: Well-developed and well-nourished. No distress. Abdominal: Soft. Mild epigastric tenderness. No distension or guarding. Skin: Skin is warm and dry. Psychiatric: Normal mood and affect. Brief ED course/MDM: Differential diagnoses include GJ or anastomotic ulcer, perforated viscus, SBO, biliary colic or cholecystitis, acute pancreatitis, acute coronary syndrome, ectopic , arrhythmia. I reviewed the workup including an unremarkable CBC, CMP showing mild hypokalemia (replenished), mildly low bicarb with mildly elevated anion gap, UA not convincing for UTI, urine negative, troponin normal, lipase normal. CT abdomen pelvis did not identify an explanation for the pain but did identify a mass from the kidney which I personally notified the patient of and indicated need for follow-up MRI to ensure it is not cancerous. I considered obtaining CT head to assess for ICH, but she was observed in the ED for 6 hours with no concern arising for ICH. Case was discussed with geriatrics who recommended discharge, anticipating upcoming upper endoscopy in 1 week. Diagnoses as of 07/30/254 Pain of upper abdomen Syncope and collapse ED medications managed: Medications sodium chloride 0.9 % bolus 500 mL (0 mL IntraVENous Stopped 07/30/25 1606) metoclopramide (Reglan) injection 10 mg (10 mg IntraVENous Given 07/30/25 1531) iopamidol (Isovue-370) 76 % injection 75 mL (75 mL IntraVENous Given 07/30/25 1558) HYDROmorphone (Dilaudid) injection 0.5 mg (0.5 mg IntraVENous Given 07/30/25 1801) potassium chloride (Klor-Con) packet 40 mEq (40 mEq Oral Given 07/30/25 185) sodium chloride 0.9 % bolus 500 mL (0 mL IntraVENous Stopped 07/30/252005) HYDROmorphone (Dilaudid) injection 0.5 mg (0.5 mg IntraVENous Given 07/30/25 193) dicyclomine (Bentyl) capsule 10 mg (10 mg Oral Given 07/30/251948) acetaminophen (Tylenol) tablet 1,000 mg (1,000 mg Oral Given 07/30/251935) Chronic conditions and social determinants of health affecting care: Bariatric surgery I made diagnostic, treatment, and disposition decisions in conjunction with the resident. I also supervised solares portions of any procedures performed by the resident. For all further details of the patient's emergency department visit, please see his/her documentation. MD Regina Salinas MD 07/30/252153 [facility] 07-10-2025 Nurse Note Went over discharge paperwork with pt and boyfriend at bedside. Both were agreeable and understood. IV taken out. Pt got self dressed and gathered all belongings. Waiting on transport. [facility] 07-10-2025 Nurse Note Went over discharge paperwork with pt and boyfriend at bedside. Both were agreeable and understood. IV taken out. Pt got self dressed and gathered all belongings. Waiting on transport. documented in this encounter [facility] 07-10-2025 Note [facility] 07-10-2025 Hospital course Narrative Hospitalist Discharge Summary Mel Wall : 1985 Admit date: 07/08/2025 Discharge date: 07/10/2025 Admitting Physician: Brent Blanco MD Primary Care Physician: No primary care provider on file. Visit Status: Observation Code Status: Full Code Acute, acute on chronic, unstable/uncontrolled chronic problems/discharge diagnoses: # Acute on chronic abdominal pain, improved - CT A/P with postsurgical change and focal fluid within left pelvis that may represent fluid within anastomosis or distended bowel loop versus focal fluid within mesenteric leaf, but no other acute findings or significant interval change. UGI with SBFT showed thickened gastric folds and small bowel with no convincing mucosal abnormality or dilatation. # Nausea and vomiting, improved # Hx of SBO # Hx of multiple ventral hernia repairs # Obesity s/p Janel-en-Y with DJ anastomosis (2008) # Hx of panniculectomy (08/07/24) # Hypokalemia, improved Stable chronic problems affecting care, new non-acute discharge diagnoses: # Bipolar disorder # Depression, anxiety - prozac 20 mg daily Medical History[1] Procedures: None Hospital Course: Mel Wall is a 40 y.o. female with history of obesity s/p Janel-en-Y with DJ anastomosis (2008), multiple ventral hernia repairs, SBO, panniculectomy (08/07/24), chronic abdominal pain, bipolar disorder, depression, anxiety who presented to ED on 07/08/25 for diffuse abdominal pain, nausea, and vomiting. In ED, initial labs significant for relatively stable CMP and CBC, lactic 1.[address] A/P with postsurgical change and focal fluid within left pelvis that may represent fluid within anastomosis or distended bowel loop versus focal fluid within mesenteric leaf, but no other acute findings or significant interval change. Given IVF's, IV pain medications, IM phenergan, IV reglan, and IV benadryl in ED. Surgery consulted/evaluated in ED and noted no surgical intervention, but ordered UGI with SBFT. Admitted for further evaluation and management. UGI with SBFT showed thickened gastric folds and small bowel with no convincing mucosal abnormality or dilatation. Surgery noted that patient felt better, so okay for diet advancement and outpatient follow-up with likely plan for outpatient EGD. Diet was advanced, patient tolerated regular diet, and reported clinical improvement. Patient remained clinically stable and is discharged in improved and stable condition. See discharge diagnoses list above and medication adjustments below in med rec. Consults: None Discharge Instructions: Diet: Dietary Orders (From admission, onward) Start Ordered 07/10/25 1033 Adult diet Regular Diet effective now Question: Diet type Answer: Regular 07/10/25 1033 Activity: as tolerated Recommended Outpatient Tests: Disposition: Patient discharged in stable condition to Home. Greater than 31 minutes spent discharging the patient and coming up with patient discharge plan. Vitals: BP 120/76 (BP Location: Left arm, Patient Position: Sitting) Pulse 65 Temp 36.9 C (98.5 F) (Temporal) Resp 22 Ht 5' 5 (1.651 m) Wt 218 lb (98.9 kg) SpO2 98% BMI 36.28 kg/m Pulse Ox: SpO2 Av.5 % Min: 97 % Max: 98 % Supplemental O2: Physical Exam Constitutional: General: She is not in acute distress. Appearance: She is obese. She is not toxic-appearing. HENT: Head: Normocephalic. Right Ear: External ear normal. Left Ear: External ear normal. Eyes: Extraocular Movements: Extraocular movements intact. Cardiovascular: Rate and Rhythm: Normal rate and regular rhythm. Pulmonary: Effort: Pulmonary effort is normal. No respiratory distress. Abdominal: Palpations: Abdomen is soft. Tenderness: There is no abdominal tenderness. Musculoskeletal: General: Normal range of motion. Skin: General: Skin is warm and dry. Neurological: Mental Status: She is alert and oriented to person, place, and time. LABS: Recent Labs 07/08/25 1558 07/09/25 0414 07/10/25 0253 NA 139 137 137 K 3.5 3.4* 3.8 CL 107 108* 108* CO2 22 23 23 BUN 10 11 7* CREATININE 0.65 0.61 0.56* GLUCOSE 127* 90 91 CALCIUM 8.6 8.1* 8.4 Recent Labs 07/08/25 1558 07/09/25 0414 07/10/25 0253 WBC 8.1 8.0 7.0 RBC 4.15 3.64* 3.82 HGB 12.8 11.4* 11.8 HCT 37.7 34.1* 35.5 MCV 90.8 93.7 92.9 MCH 30.8 31.3 30.9 MCHC 34.0 33.4 33.2 RDW 12.2 12.3 12.3 PLT 257 223 232 MPV 8.8* 9.0 9.2 Discharge Medications: Medication List CONTINUE taking these medications cyclobenzaprine 10 MG tablet Commonly known as: Flexeril FLUoxetine 20 MG capsule Commonly known as: PROzac oxyCODONE 5 MG immediate release tablet Commonly known as: Roxicodone promethazine 12.5 MG tablet Commonly known as: Phenergan Recommended Follow-up: No follow-up provider specified. Complexity of Follow up: [] Moderate Complexity: follow up within 7-14 calendar days (65492) [x] Severe Complexity: follow up within 7 calendar days (42332) Follow up Testing, Pending results or Referrals at Transitional Care Visit: [x] yes [] no Instructions to MA: Please call patient on day after discharge (must document patient contacted within 2 business days of discharge). Follow up questions for MA: 1. Did you get medications filled and taking them as instructed from discharge? 2. Are you following your discharge instructions from your hospital stay? 3. Please confirm patient is scheduled for a follow up appointment within the above time frame. 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 Care Management Progress Note Short Medical why still here: pt adm for tx/evaluation of generalized abd pain/nausea/vomiting. Monitoring diet tolerance and pian control. Surgery signed off. UGI/SBFT completed yesterday and negative. Planned Discharge Disposition: pt from home indep. Pt has insurance. Does not have PCP. No needs antic at discharge. Barriers/Today we still Wait: pain mgmt/improvement. Length of Stay (Days): 0 GMLOS: No GMLOS Documented [facility] 07-10-2025 Miscellaneous Notes Care Management Progress Note Short Medical why still here: pt adm for tx/evaluation of generalized abd pain/nausea/vomiting. Monitoring diet tolerance and pian control. Surgery signed off. UGI/SBFT completed yesterday and negative. Planned Discharge Disposition: pt from home indep. Pt has insurance. Does not have PCP. No needs antic at discharge. Barriers/Today we still Wait: pain mgmt/improvement. Length of Stay (Days): 0 GMLOS: No GMLOS Documented The social work SDOH needs: HCPOA Consult. WILBUR met with patient in her room. She had a visitor at bedside. She requested information on HCPOA. WILBUR reviewed the form with her and left it with her to read on her own. Patient agreed to contact WILBUR by cell phone, if she would like to complete while here at the hospital or if she had any questions. Received SDOH for HCPOA consult. Attempted to visit patient, but she was with medical staff in the room. documented in this encounter [facility] 07-10-2025 Progress note Formatting of t his note might be different from the original. The social work SDOH needs: HCPOA Consult. SW met with patient in her room. She had a visitor at bedside. She requested information on HCPOA. SW reviewed the form with her and left it with her to read on her own. Patient agreed to contact SW by cell phone, if she would like to complete while here at the hospital or if she had any questions. [facility] 07-10-2025 History of Present illness Narrative Nutrition rescreen completed. Patient referred to the Dietitian due to poor nutrition intake. Shalonda Caldera, NICKY Updated Surgical Plan -Upper GI/small bowel follow-through reviewed no obvious abnormal findings contrast reason: An appropriate time -Reevaluated patient she is feeling better at this time -Okay for diet advancement -Okay for follow-up outpatient likely plan for outpatient EGD -Surgery to sign off at this time okay for discharge GEMMA MCWILLIAMS MD General Surgery Resident 07/09/25 5:01 PM Hospitalist Progress Note 07/09/2025 Subjective: Admit Date: 07/08/2025 PCP: No primary care provider on file. Room#: 36/36 BRIEF HOSPITAL COURSE: Mel Wall is a 40 y.o. female with history of obesity s/p Janel-en-Y with DJ anastomosis (2008), multiple ventral hernia repairs, SBO, panniculectomy (08/07/24), chronic abdominal pain, bipolar disorder, depression, anxiety who presented to ED on 07/08/25 for diffuse abdominal pain, nausea, and vomiting. In ED, initial labs significant for relatively stable CMP and CBC, lactic 1.9 wnl. UA contaminated but with protein, trace ketones, and moderate bacteria. CT A/P with postsurgical change and focal fluid within left pelvis that may represent fluid within anastomosis or distended bowel loop versus focal fluid within mesenteric leaf, but no other acute findings or significant interval change. Given IVF's, IV pain medications, IM phenergan, IV reglan, and IV benadryl in ED. Surgery consulted/evaluated in ED, noted no surgical intervention, but planning for UGI with SBFT. Admitted for further evaluation and management. Interval History: Boyfriend present at bedside today. Patient laying in bed, Aox3. Reports 05/19 acute on chronic abdominal pain today. Currently denies nausea, vomiting, diarrhea. Denies fever, chills, chest pain, SOB. Case and plan discussed with patient and her boyfriend. Questions answered. NPO diet with enteral medications 24HR INTAKE/OUTPUT: No intake or output data in the 24 hours ending 07/09/25 0841 Past Medical History: Medical History[1] LABS: CBC: Recent Labs 07/08/25 1558 07/09/25 0414 WBC 8.1 8.0 RBC 4.15 3.64* HGB 12.8 11.4* HCT 37.7 34.1* MCV 90.8 93.7 RDW 12.2 12.3 PLT 257 223 BMP: Recent Labs 07/08/25 1558 07/09/25 0414 NA 139 137 K 3.5 3.4* CL 107 108* CO2 22 23 BUN 10 11 CREATININE 0.65 0.61 GLUCOSE 127* 90 CALCIUM 8.6 8.1* ANIONGAP 10 6 LIVER PROFILE: Recent Labs 07/08/25 1558 AST 14 ALT 13 BILITOT 0.3 ALKPHOS 37* PROT 6.8 PT/INR: No results for input(s): PROTIME, INR in the last 72 hours. CARDIAC ENZYMES: No results for input(s): TROPONINI in the last 72 hours. Procalcitonin: No results found for: PROCAL COVID-19 PCR: No results for input(s): COVID19 in the last 72 hours. Objective: Vitals: BP 131/81 Pulse 64 Temp 37.1 C (98.7 F) (Temporal) Resp 18 Ht 5' 5 (1.651 m) Wt 218 lb (98.9 kg) SpO2 99% BMI 36.28 kg/m Pulse Ox: SpO2 Av.1 % Min: 98 % Max: 100 % Supplemental O2: Physical Exam Constitutional: General: She is not in acute distress. Appearance: She is obese. She is not toxic-appearing. HENT: Head: Normocephalic. Right Ear: External ear normal. Left Ear: External ear normal. Eyes: Extraocular Movements: Extraocular movements intact. Cardiovascular: Rate and Rhythm: Normal rate and regular rhythm. Pulmonary: Effort: Pulmonary effort is normal. No respiratory distress. Abdominal: Palpations: Abdomen is soft. Tenderness: There is abdominal tenderness. Skin: General: Skin is warm and dry. Neurological: Mental Status: She is alert and oriented to person, place, and time. Medications: Scheduled PRN Scheduled Meds[2] PRN Meds[3] Continuous Continuous Meds[4] Assessment Acute, acute on chronic, unstable/uncontrolled chronic problems/diagnoses: # Acute on chronic abdominal pain - CT A/P with postsurgical change and focal fluid within left pelvis that may represent fluid within anastomosis or distended bowel loop versus focal fluid within mesenteric leaf, but no other acute findings or significant interval change. # Nausea and vomiting # Hx of SBO # Hx of multiple ventral hernia repairs # Obesity s/p Janel-en-Y with DJ anastomosis (2008) # Hx of panniculectomy (08/07/24) # Hypokalemia - monitor and replete PRN Stable chronic problems affecting care, new non-acute diagnoses: # Bipolar disorder # Depression, anxiety - prozac 20 mg daily Plan As a result of the above findings & factors, the following mgmt was pursued: - Surgery following. Noted no surgical intervention. Ordered UGI with SBFT. Stated NPO until after UGI/SBFT, then likely diet as tolerated. Recs noted. - PRN pain medications - PRN anti-emetics - mIVF's as needed - Continue supportive care - Continue chronic medications as able - TCC following for dispo planning. - am labs, replace lytes prn - delirium precautions: increase activity and limit nighttime disturbances - DVT prophylaxis: enoxaparin and encourage ambulation Advance Directive: Full Code Anticipated Discharge - Date - TBD - Location - Home - Pending the following - clinical course, media consultant recs, dispo planning Total time spent (which include face to face and non face to face encounters): 35 minutes. 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 Partial obstruction of small intestine (HCC) 06/13/2024 [2] enoxaparin, 40 mg, SubCUTAneous, q24h FLUoxetine, 20 mg, Oral, Daily influenza, 0.5 mL, IntraMUSCular, Once [3] PRN medications: acetaminophen OR acetaminophen, HYDROcodone - acetaminophen, HYDROmorphone, naloxone, polyethylene glycol (PEG) 3350, prochlorperazine OR prochlorperazine OR prochlorperazine, promethazine [4] lactated Ringer's, 100 mL/hr, Last Rate: 100 mL/hr (07/09/25 0618) documented in this encounter [facility] 07-10-2025 Progress note Formatting of t his note might be different from the original. Received [facility] for HCPOA consult. Attempted to visit patient, but she was with medical staff in the room. [facility] 07-09-2025 Emergency department Note Pt rang call light at this time and asked for an update regarding IV pain meds, RN informed pt that her provider was notified and has not yet responded. Pt became tearful and upset stating if I'm not going to get anything for pain then I might as well just go home, and again requested IV medication. Dr Blanco notified. [facility] 07-09-2025 Emergency department Note Pt rang call light at this time and asked for an update regarding IV pain meds, RN informed pt that her provider was notified and has not yet responded. Pt became tearful and upset stating if I'm not going to get anything for pain then I might as well just go home, and again requested IV medication. Dr Blanco notified. Pt reports 8/10 pain at this time and requesting pain medication, RN educated pt on PRN pain medications and pt requesting IV medication be ordered due to increasing nausea. Physician notified. Pt arrives to [facility] ED via EMS at this time Still needs wrist band Went to medicate pt but she had been taken to radiology. This RN was informed by Saud, hardware trainer that the pt was vomiting. He stated he informed Dr. Orozco. EMERGENCY DEPARTMENT ENCOUNTER Pt Name: Mel Wall Birthdate 1985 Date of evaluation: 07/08/2025 ED Provider: Jacqueline Orozco DO CHIEF COMPLAINT Chief Complaint Patient presents with Abdominal Pain Pt states she is concerned she has a bowel obstruction, pt states she has a hx of bowel obstructions and this pain is similar but worse than the previous. Pt states she had a small bowel movement yesterday, unable to pass gas today. Pt also reports vomiting. HISTORY OF PRESENT ILLNESS (Location/Symptom, Timing/Onset, Context/Setting, Quality, Duration, Modifying Factors, Severity) Note limiting factors. I wore appropriate PPE for the entirety of this encounter. HPI 40-year-old resents emergency room today with diffuse abdominal pain, nausea, vomiting, inability to pass gas. History of multiple hernia repair surgeries, cholecystectomy, appendectomy and several bowel obstructions in the past which had been managed both conservatively and surgically. Nursing Notes were reviewed. Limitations to history: None Outside historians: None REVIEW OF SYSTEMS Review of Systems Gastrointestinal: Positive for abdominal pain, nausea and vomiting. Pertinent positives and negatives as per HPI. PAST MEDICAL HISTORY Medical History[1] SURGICAL HISTORY Surgical History[2] CURRENT MEDICATIONS Previous Medications CYCLOBENZAPRINE (FLEXERIL) 10 MG TABLET FLUOXETINE (PROZAC) 20 MG CAPSULE Take 20 mg by mouth daily. LIDOCAINE (LIDODERM) 5 % PATCH Place 1 patch on the skin daily. OXYCODONE (ROXICODONE) 5 MG IMMEDIATE RELEASE TABLET Take 5 mg by mouth every 6 hours as needed. PROMETHAZINE (PHENERGAN) 12.5 MG TABLET Take 12.5 mg by mouth every 8 hours as needed. ALLERGIES Ketorolac, Ondansetron, and Seasonal FAMILY HISTORY Family History[3] SOCIAL HISTORY Social History[4] SCREENINGS Tommy Coma Scale Best Eye Response: Spontaneous Best Verbal Response: Oriented Best Motor Response: Follows commands [place] Coma Scale Score: 15 PHYSICAL EXAM ED Triage Vitals [07/08/25 1515] Temp Heart Rate Resp BP 37.1 C (98.7 F) 105 20 (!) 144/103 SpO2 Temp Source Heart Rate Source Patient Position 100 % Temporal Monitor Sitting BP Location FiO2 (%) Right arm -- Physical Exam Vitals and nursing note reviewed. Constitutional: General: She is not in acute distress. Appearance: She is well-developed. HENT: Head: Normocephalic and atraumatic. Eyes: Conjunctiva/sclera: Conjunctivae normal. Cardiovascular: Rate and Rhythm: Normal rate and regular rhythm. Heart sounds: No murmur heard. Pulmonary: Effort: Pulmonary effort is normal. No respiratory distress. Breath sounds: Normal breath sounds. Abdominal: Palpations: Abdomen is soft. Tenderness: There is abdominal tenderness in the right upper quadrant, epigastric area and left upper quadrant. Musculoskeletal: General: No swelling. Cervical back: Neck supple. Skin: General: Skin is warm and dry. Capillary Refill: Capillary refill takes less than 2 seconds. Neurological: Mental Status: She is alert. Psychiatric: Mood and Affect: Mood normal. DIAGNOSTIC RESULTS Procedures/EKG: RADIOLOGY (Per Emergency Physician): Interpretation per the Radiologist below, if available at the time of this note: CT abdomen pelvis w contrast Final Result 1. Postsurgical change and focal fluid within the left pelvis may represent fluid within anastomosis or distended bowel loop versus focal fluid within mesenteric leaf, but is nonspecific. Clinical correlation and follow-up as indicated. 2. No other acute findings or significant interval change. Please see above for further details. Report Dictated on Electronically Signed By: Sunil Thompson MD Electronically Signed Date/Time: 07/08/2025 5:40 PM EDT ED BEDSIDE ULTRASOUND: Performed by ED Physician - none LABS: Labs Reviewed CBC WITH AUTO DIFFERENTIAL - Abnormal Result Value Auto WBC 8.1 RBC 4.15 Hemoglobin 12.8 Hematocrit 37.7 MCV 90.8 MCH 30.8 MCHC 34.0 RDW 12.2 Platelets 257 MPV 8.8 (*) nRBC 0.0 Neutrophils Relative 70.6 Lymphocytes Relative 22.7 Monocytes Relative 5.0 Eosinophils Relative 1.1 Basophils Relative 0.4 Immature Grans % 0.2 Neutrophils Absolute 5.7 Lymphocytes Absolute 1.8 Monocytes Absolute 0.4 Eosinophils Absolute 0.1 Basophils Absolute 0.0 Immature Grans Absolute 0.0 COMPREHENSIVE METABOLIC PANEL - Abnormal SODIUM 139 POTASSIUM 3.5 CHLORIDE 107 CARBON DIOXIDE 22 ANION GAP 10 UREA NITROGEN 10 CREATININE 0.65 GLUCOSE 127 (*) CALCIUM 8.6 AST (SGOT) 14 ALT 13 ALKALINE PHOSPHATASE 37 (*) ALBUMIN 3.9 BILIRUBIN, TOTAL 0.3 TOTAL PROTEIN 6.8 eGFR >90.0 COMPLETE URINALYSIS WITH REFLEX TO CULTURE - Abnormal Color, Urine Yellow Clarity, Urine Turbid (*) pH, Urine 6.0 Leukocytes, Urine Negative Nitrite, Urine Negative Protein, Urine 20 (*) Glucose, Urine Normal Bilirubin, Urine Negative Ketones, Urine Trace (*) Urobilinogen, Urine 2 (*) Blood, Urine Negative Volume, Urine 12 mL RBC, Urine 3-5 (*) WBC, Urine 3-5 Squamous Epithelial, Urine 26-50 (*) Bacteria, Urine Moderate (*) Mucus, Urine Moderate (*) Amorphous Crystals, Urine Moderate (*) SPECIFIC GRAVITY OF URINE (NUMERIC) 1.032 (*) Narrative: A specimen with <=10 WBC is not consistent with inflammation. This specimen will not reflex to a urine culture. LIPASE - Normal LIPASE 19 HCG QUANTITATIVE BLOOD HCG QUANTITATIVE <2.5 Narrative: Values in should double every 2 to 3 days for the first 6 weeks. Elevated concentrations of human chorionic gonadotropin (hCG) measured in the first trimester of are observed in normal , but may serve as an indication of chorionic carcinoma, hydatiform mole, or multiple . Decreasing hCG concentrations indicate threatened or missed , recent termination of , ectopic , gestosis or intrauterine . Yanelis- and postmenopausal females may have detectable hCG concentrations (< or = to 14 mIU/mL) due to pituitary production of hCG. Serum follicle-stimulating hormone measurement may aid in ruling-out in this population. Cutoffs of greater than 20 to 45 mIU/mL have been suggested and are method dependent. False-elevations (called phantom human chorionic gonadotropin: hCG) may occur with patients who have human antianimal or heterophilic antibodies. Some specimens may not dilute linearly due to abnormal forms of hCG. Elevated hCG concentrations not associated with are found in patients with other diseases such as tumors of the germ cells, ovaries, bladder, pancreas, stomach, lungs, and liver. This test is not intended to detect or monitor tumors or gestational trophoblastic disease. All other labs were within normal range or not returned as of this dictation. EMERGENCY DEPARTMENT COURSE and DIFFERENTIAL DIAGNOSIS/MDM: Vitals: Vitals: 07/08/25 1515 07/08/25 1801 BP: (!) 144/103 107/73 BP Location: Right arm Patient Position: Sitting Pulse: 105 59 Resp: 20 16 Temp: 37.1 C (98.7 F) TempSrc: Temporal SpO2: 100% 99% Weight: 98.9 kg (218 lb) Height: 1.651 m (5' 5) ED Course as of 07/08/251854Jul 08, 2025 1542 40-year-old resents emergency room today with diffuse abdominal pain, nausea, vomiting, inability to pass gas. History of multiple hernia repair surgeries, cholecystectomy, appendectomy and several bowel obstructions in the past which had been managed both conservatively and surgically. On exam abdomen distended, diffusely tender worse in the upper quadrants bilaterally. No rebound or guarding. Mildly tachycardic to 105. Will check CBC, CMP, lipase, urinalysis, CT abdomen pelvis. Will give Phenergan, Dilaudid, IV fluid bolus keep n.p.o. and reassess. Differential diagnosis includes bowel obstruction, colitis, enteritis. [BM] 1614 CBC unremarkable. [BM] 1717 CMP, lipase, test unremarkable, urinalysis no evidence of infection. [BM] 1800 1. Postsurgical change and focal fluid within the left pelvis may represent fluid within anastomosis or distended bowel loop versus focal fluid within mesenteric leaf, but is nonspecific. Clinical correlation and follow-up as indicated. 2. No other acute findings or significant interval change. Please see above for further details. [BM] ED Course User Index [BM] Jacqueline Orozco DO Diagnoses as of 07/08/25 185 Generalized abdominal pain Nausea and vomiting, unspecified vomiting type Spoke to Dr. Whittington who recommended ED to ED transfer for surgical evaluation by Dr. Pedro and his team given that that is her primary surgeon. Accepted for transfer by Dr. MARKIE Edward emergency department physician. Medications HYDROmorphone (Dilaudid) injection 1 mg (1 mg IntraVENous Given 07/08/25 1604) sodium chloride 0.9 % bolus 1,000 mL (0 mL IntraVENous Stopped 07/08/25 1758) promethazine (Phenergan) injection 25 mg (25 mg IntraMUSCular Given 07/08/25 1603) metoclopramide (Reglan) injection 10 mg (10 mg IntraVENous Given 07/08/25 1707) diphenhydrAMINE (BENADryl) injection 25 mg (25 mg IntraVENous Given 07/08/25 1706) iopamidol (Isovue-370) 76 % injection 75 mL (75 mL IntraVENous Given 07/08/25 1700) morphine injection 4 mg (4 mg IntraVENous Given 07/08/25 1802) REVAL: CRITICAL CARE TIME FINAL IMPRESSION 1. Generalized abdominal pain 2. Nausea and vomiting, unspecified vomiting type DISPOSITION Transfer To [facility] Ed 07/08/2025 06:53:51 PM PATIENT REFERRED TO: No follow-up provider specified. DISCHARGE MEDICATIONS: New Prescriptions No medications on file (Comment: Please note this report has been produced using speech recognition software and may contain errors related to that system including errors in grammar, punctuation, and spelling, as well as words and phrases that may be inappropriate. 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 Partial obstruction of small intestine (HCC) 06/13/2024 [2] Past Surgical History: Procedure Laterality Date APPENDECTOMY BILIOPANCREATIC DIVERSION 10/23/2008 Sherie @ [facility]; janel-en-y duodenojejunostomy for bile reflux CHOLECYSTECTOMY 02/2007 lap COLONOSCOPY N/A 11/29/2023 [facility]; repeat in 11/2033 EXPLORATORY LAPAROTOMY 06/10/2019 Veronica @ [facility]; ex lap, WAI INCISION AND DRAINAGE OF WOUND 08/09/2013 [place]; I&D of surgical incision of LLQ INCISIONAL HERNIA REPAIR 10/20/2017 [facility]; open primary repair INCISIONAL HERNIA REPAIR 07/12/2018 [facility]; open w/ mesh INCISIONAL HERNIA REPAIR 09/26/2018 [facility]; lap w/ mesh INCISIONAL HERNIA REPAIR 03/11/2020 ; repair w/ mesh excision, mesh replacement ([address] [facility] Mesh w/ Echo), WAI INCISIONAL HERNIA REPAIR 07/19/2015 [facility]; open repair w/ mesh INCISIONAL HERNIA REPAIR 08/07/2024 [facility]; an open recurrent repair w/ mesh, WAI, TAR, removal of infarcted cecal epiploic appendage PANNICULECTOMY (HISTORICAL) 08/07/2024 [facility] SOFT TISSUE MASS EXCISION 08/02/2013 [facility]; STM excision of LLQ TONSILLECTOMY [3] Family History Problem Relation Name Age of Onset Hypertension Father Diabetes Father [4] Social History Socioeconomic History Marital status: Tobacco Use Smoking status: Former Current packs/day: 0.00 Types: Cigarettes Quit date: 2020 Years since quittin.7 Smokeless tobacco: Never Tobacco comments: Patient states she quit smoking in 2020, no history of vaping or smokeless tobacco. Smoking cessation counseling not indicated. Vaping Use Vaping status: Never Used Substance and Sexual Activity Alcohol use: Not Currently Drug use: Yes Frequency: 2.0 times per week Types: Marijuana Comment: edibles Sexual activity: Not Currently Social Drivers of Health Financial Resource Strain: Low Risk (05/24/2025) Overall Financial Resource Strain (CARDIA) Difficulty of Paying Living Expenses: Not hard at all Food Insecurity: No Food Insecurity (05/24/2025) Hunger Vital Sign Worried About Running Out of Food in the Last Year: Never true Ran Out of Food in the Last Year: Never true Transportation Needs: No Transportation Needs (05/24/2025) PRAPARE - Transportation Lack of Transportation (Medical): No Lack of Transportation (Non-Medical): No Physical Activity: Insufficiently Active (05/24/2025) Exercise Vital Sign Days of Exercise per Week: 2 days Minutes of Exercise per Session: 30 min Stress: Stress Concern Present (04/24/2024) [employer] [place] [employer] - Occupational Stress Questionnaire Feeling of Stress : Very much Social Connections: Moderately Integrated (04/24/2024) Social Connection and Isolation Panel [NHANES] Frequency of Communication with Friends and Family: Twice a week Frequency of Social Gatherings with Friends and Family: Once a week Attends [employer] Services: More than 4 times per year Active Member of Clubs or Organizations: No Attends Club or Organization Meetings: More than 4 times per year Marital Status: Intimate Partner Violence: Not At Risk (05/24/2025) Humiliation, Afraid, Rape, and Kick questionnaire Fear of Current or Ex-Partner: No Emotionally Abused: No Physically Abused: No Sexually Abused: No Housing Stability: Unknown (05/24/2025) Housing Stability Vital Sign Unable to Pay for Housing in the Last Year: No Homeless in the Last Year: No Jacqueline Orozco DO 07/08/251855 EMERGENCY DEPARTMENT ENCOUNTER Pt Name: Mel Wall Birthdate 1985 Date of evaluation: 07/08/2025 ED Provider: Will Granado DO CHIEF COMPLAINT Chief Complaint Patient presents with Abdominal Pain Pt states she is concerned she has a bowel obstruction, pt states she has a hx of bowel obstructions and this pain is similar but worse than the previous. Pt states she had a small bowel movement yesterday, unable to pass gas today. Pt also reports vomiting. HISTORY OF PRESENT ILLNESS (Location/Symptom, Timing/Onset, Context/Setting, Quality, Duration, Modifying Factors, Severity) Note limiting factors. I wore appropriate PPE for the entirety of this encounter. HPI Mel Wall is a 40 y.o. is a patient of Dr. Taylor with with history of multiple SBO's who presents to the emergency department with abdominal pain, nausea, vomiting since yesterday. Of note she has also not had any bowel function since yesterday either. She was evaluated at [facility] ED and sent here due to CTAP concerning for possible SBO. Nursing Notes were reviewed. Limitations to history: None Outside historians: None REVIEW OF SYSTEMS Review of Systems Gastrointestinal: Positive for abdominal pain, nausea and vomiting. Pertinent positives and negatives as per HPI. PAST MEDICAL HISTORY Medical History[1] SURGICAL HISTORY Surgical History[2] CURRENT MEDICATIONS Previous Medications CYCLOBENZAPRINE (FLEXERIL) 10 MG TABLET FLUOXETINE (PROZAC) 20 MG CAPSULE Take 20 mg by mouth daily. LIDOCAINE (LIDODERM) 5 % PATCH Place 1 patch on the skin daily. OXYCODONE (ROXICODONE) 5 MG IMMEDIATE RELEASE TABLET Take 5 mg by mouth every 6 hours as needed. PROMETHAZINE (PHENERGAN) 12.5 MG TABLET Take 12.5 mg by mouth every 8 hours as needed. ALLERGIES Ketorolac, Ondansetron, and Seasonal FAMILY HISTORY Family History[3] SOCIAL HISTORY Social History[4] SCREENINGS [place] Coma Scale Best Eye Response: Spontaneous Best Verbal Response: Oriented Best Motor Response: Follows commands [place] Coma Scale Score: 15 PHYSICAL EXAM ED Triage Vitals [07/08/25 1515] Temp Heart Rate Resp BP 37.1 C (98.7 F) 105 20 (!) 144/103 SpO2 Temp Source Heart Rate Source Patient Position 100 % Temporal Monitor Sitting BP Location FiO2 (%) Right arm -- Physical Exam Vitals and nursing note reviewed. Constitutional: General: She is in acute distress. Appearance: She is well-developed and normal weight. She is not ill-appearing, toxic-appearing or diaphoretic. HENT: Head: Normocephalic and atraumatic. Cardiovascular: Rate and Rhythm: Normal rate. Pulmonary: Effort: Pulmonary effort is normal. Abdominal: General: Abdomen is flat. Tenderness: There is abdominal tenderness. Neurological: General: No focal deficit present. Mental Status: She is alert. Psychiatric: Mood and Affect: Mood normal. DIAGNOSTIC RESULTS RADIOLOGY (Per Emergency Physician): Interpretation per the Radiologist below, if available at the time of this note: CT abdomen pelvis w contrast Final Result 1. Postsurgical change and focal fluid within the left pelvis may represent fluid within anastomosis or distended bowel loop versus focal fluid within mesenteric leaf, but is nonspecific. Clinical correlation and follow-up as indicated. 2. No other acute findings or significant interval change. Please see above for further details. Report Dictated on Electronically Signed By: Sunil Thompson MD Electronically Signed Date/Time: 07/08/2025 5:40 PM EDT LABS: Labs Reviewed CBC WITH AUTO DIFFERENTIAL - Abnormal Result Value Auto WBC 8.1 RBC 4.15 Hemoglobin 12.8 Hematocrit 37.7 MCV 90.8 MCH 30.8 MCHC 34.0 RDW 12.2 Platelets 257 MPV 8.8 (*) nRBC 0.0 Neutrophils Relative 70.6 Lymphocytes Relative 22.7 Monocytes Relative 5.0 Eosinophils Relative 1.1 Basophils Relative 0.4 Immature Grans % 0.2 Neutrophils Absolute 5.7 Lymphocytes Absolute 1.8 Monocytes Absolute 0.4 Eosinophils Absolute 0.1 Basophils Absolute 0.0 Immature Grans Absolute 0.0 COMPREHENSIVE METABOLIC PANEL - Abnormal SODIUM 139 POTASSIUM 3.5 CHLORIDE 107 CARBON DIOXIDE 22 ANION GAP 10 UREA NITROGEN 10 CREATININE 0.65 GLUCOSE 127 (*) CALCIUM 8.6 AST (SGOT) 14 ALT 13 ALKALINE PHOSPHATASE 37 (*) ALBUMIN 3.9 BILIRUBIN, TOTAL 0.3 TOTAL PROTEIN 6.8 eGFR >90.0 COMPLETE URINALYSIS WITH REFLEX TO CULTURE - Abnormal Color, Urine Yellow Clarity, Urine Turbid (*) pH, Urine 6.0 Leukocytes, Urine Negative Nitrite, Urine Negative Protein, Urine 20 (*) Glucose, Urine Normal Bilirubin, Urine Negative Ketones, Urine Trace (*) Urobilinogen, Urine 2 (*) Blood, Urine Negative Volume, Urine 12 mL RBC, Urine 3-5 (*) WBC, Urine 3-5 Squamous Epithelial, Urine 26-50 (*) Bacteria, Urine Moderate (*) Mucus, Urine Moderate (*) Amorphous Crystals, Urine Moderate (*) SPECIFIC GRAVITY OF URINE (NUMERIC) 1.032 (*) Narrative: A specimen with <=10 WBC is not consistent with inflammation. This specimen will not reflex to a urine culture. LIPASE - Normal LIPASE 19 LACTIC ACID WITH REFLEX - Normal LACTIC ACID 1.9 HCG QUANTITATIVE BLOOD HCG QUANTITATIVE <2.5 Narrative: Values in should double every 2 to 3 days for the first 6 weeks. Elevated concentrations of human chorionic gonadotropin (hCG) measured in the first trimester of are observed in normal , but may serve as an indication of chorionic carcinoma, hydatiform mole, or multiple . Decreasing hCG concentrations indicate threatened or missed , recent termination of , ectopic , gestosis or intrauterine . Yanelis- and postmenopausal females may have detectable hCG concentrations (< or = to 14 mIU/mL) due to pituitary production of hCG. Serum follicle-stimulating hormone measurement may aid in ruling-out in this population. Cutoffs of greater than 20 to 45 mIU/mL have been suggested and are method dependent. False-elevations (called phantom human chorionic gonadotropin: hCG) may occur with patients who have human antianimal or heterophilic antibodies. Some specimens may not dilute linearly due to abnormal forms of hCG. Elevated hCG concentrations not associated with are found in patients with other diseases such as tumors of the germ cells, ovaries, bladder, pancreas, stomach, lungs, and liver. This test is not intended to detect or monitor tumors or gestational trophoblastic disease. All other labs were within normal range or not returned as of this dictation. EMERGENCY DEPARTMENT COURSE and DIFFERENTIAL DIAGNOSIS/MDM: Vitals: Vitals: 07/08/25 1801 07/08/25 1959 07/08/25 2101 07/08/25 2133 BP: 107/73 124/72 122/77 137/81 BP Location: Patient Position: Pulse: 59 62 72 90 Resp: 16 18 20 18 Temp: TempSrc: SpO2: 99% 100% 98% 98% Weight: Height: 40 y.o. is a patient of Dr. Taylor with with history of multiple SBO's who presents to the emergency department with abdominal pain, nausea, vomiting since yesterday. Upon presentation to the emergency room patient is afebrile helically stable. Patient given additional dose of morphine for pain control. Furthermore I did add on a lactic which was 1.9. Discussed case with surgery who evaluated the bedside. Patient discussed with and signed out to Dr. Ramirez pending the surgery recs. ED Course as of 07/08/252338Jul 08, 2025 154 40-year-old resents emergency room today with diffuse abdominal pain, nausea, vomiting, inability to pass gas. History of multiple hernia repair surgeries, cholecystectomy, appendectomy and several bowel obstructions in the past which had been managed both conservatively and surgically. On exam abdomen distended, diffusely tender worse in the upper quadrants bilaterally. No rebound or guarding. Mildly tachycardic to 105. Will check CBC, CMP, lipase, urinalysis, CT abdomen pelvis. Will give Phenergan, Dilaudid, IV fluid bolus keep n.p.o. and reassess. Differential diagnosis includes bowel obstruction, colitis, enteritis. [BM] 1614 CBC unremarkable. [BM] 1717 CMP, lipase, test unremarkable, urinalysis no evidence of infection. [BM] 1800 1. Postsurgical change and focal fluid within the left pelvis may represent fluid within anastomosis or distended bowel loop versus focal fluid within mesenteric leaf, but is nonspecific. Clinical correlation and follow-up as indicated. 2. No other acute findings or significant interval change. Please see above for further details. [BM] ED Course User Index [BM] Jacqueline Orozco DO Diagnoses as of 07/08/252338 Generalized abdominal pain Nausea and vomiting, unspecified vomiting type ED Medications managed: Medications HYDROmorphone (Dilaudid) injection 1 mg (1 mg IntraVENous Given 07/08/25 1604) sodium chloride 0.9 % bolus 1,000 mL (0 mL IntraVENous Stopped 07/08/25 1758) promethazine (Phenergan) injection 25 mg (25 mg IntraMUSCular Given 07/08/25 1603) metoclopramide (Reglan) injection 10 mg (10 mg IntraVENous Given 07/08/25 1707) diphenhydrAMINE (BENADryl) injection 25 mg (25 mg IntraVENous Given 07/08/25 1706) iopamidol (Isovue-370) 76 % injection 75 mL (75 mL IntraVENous Given 07/08/25 1700) morphine injection 4 mg (4 mg IntraVENous Given 07/08/25 1802) promethazine (Phenergan) injection 25 mg (25 mg IntraMUSCular Given 07/08/251909) morphine injection 4 mg (4 mg IntraVENous Given 07/08/251909) HYDROmorphone (Dilaudid) injection 0.5 mg (0.5 mg IntraVENous Given 07/08/252045) HYDROmorphone (Dilaudid) injection 0.5 mg (0.5 mg IntraVENous Given 07/08/252150) PROCEDURES: Unless otherwise noted below, none Procedures FINAL IMPRESSION 1. Generalized abdominal pain 2. Nausea and vomiting, unspecified vomiting type DISPOSITION 07/08/2025 09:46:08 PM PATIENT REFERRED TO: No follow-up provider specified. DISCHARGE MEDICATIONS: New Prescriptions No medications on file (Comment: Please note this report has been produced using speech recognition software and may contain errors related to that system including errors in grammar, punctuation, and spelling, as well as words and phrases that may be inappropriate. 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 Partial obstruction of small intestine (HCC) 06/13/2024 [2] Past Surgical History: Procedure Laterality Date APPENDECTOMY BILIOPANCREATIC DIVERSION 10/23/2008 Sherie @ [facility]; janel-en-y duodenojejunostomy for bile reflux CHOLECYSTECTOMY 02/2007 lap COLONOSCOPY N/A 11/29/2023 [facility]; repeat in 11/2033 EXPLORATORY LAPAROTOMY 06/10/2019 Veronica @ [facility]; ex lap, WAI INCISION AND DRAINAGE OF WOUND 08/09/2013 [place]; I&D of surgical incision of LLQ INCISIONAL HERNIA REPAIR 10/20/2017 [facility]; open primary repair INCISIONAL HERNIA REPAIR 07/12/2018 [facility]; open w/ mesh INCISIONAL HERNIA REPAIR 09/26/2018 [facility]; lap w/ mesh INCISIONAL HERNIA REPAIR 03/11/2020 [facility]; repair w/ mesh excision, mesh replacement ([facility] Mesh w/ Echo), WAI INCISIONAL HERNIA REPAIR 07/19/2015 [facility]; open repair w/ mesh INCISIONAL HERNIA REPAIR 08/07/2024 [facility]; an open recurrent repair w/ mesh, WAI, [facility], removal of infarcted cecal epiploic appendage PANNICULECTOMY (HISTORICAL) 08/07/2024 [facility] SOFT TISSUE MASS EXCISION 08/02/2013 [facility]; STM excision of LLQ TONSILLECTOMY [3] Family History Problem Relation Name Age of Onset Hypertension Father Diabetes Father [4] Social History Socioeconomic History Marital status: Tobacco Use Smoking status: Former Current packs/day: 0.00 Types: Cigarettes Quit date: 2020 Years since quittin.7 Smokeless tobacco: Never Tobacco comments: Patient states she quit smoking in 2020, no history of vaping or smokeless tobacco. Smoking cessation counseling not indicated. Vaping Use Vaping status: Never Used Substance and Sexual Activity Alcohol use: Not Currently Drug use: Yes Frequency: 2.0 times per week Types: Marijuana Comment: edibles Sexual activity: Not Currently Social Drivers of Health Financial Resource Strain: Low Risk (05/24/2025) Overall Financial Resource Strain (CARDIA) Difficulty of Paying Living Expenses: Not hard at all Food Insecurity: No Food Insecurity (05/24/2025) Hunger Vital Sign Worried About Running Out of Food in the Last Year: Never true Ran Out of Food in the Last Year: Never true Transportation Needs: No Transportation Needs (05/24/2025) PRAPARE - Transportation Lack of Transportation (Medical): No Lack of Transportation (Non-Medical): No Physical Activity: Insufficiently Active (05/24/2025) Exercise Vital Sign Days of Exercise per Week: 2 days Minutes of Exercise per Session: 30 min Stress: Stress Concern Present (04/24/2024) [employer] [place] [employer] - Occupational Stress Questionnaire Feeling of Stress : Very much Social Connections: Moderately Integrated (04/24/2024) Social Connection and Isolation Panel [NHANES] Frequency of Communication with Friends and Family: Twice a week Frequency of Social Gatherings with Friends and Family: Once a week Attends Adventism Services: More than 4 times per year Active Member of Clubs or Organizations: No Attends Club or Organization Meetings: More than 4 times per year Marital Status: Intimate Partner Violence: Not At Risk (05/24/2025) Humiliation, Afraid, Rape, and Kick questionnaire Fear of Current or Ex-Partner: No Emotionally Abused: No Physically Abused: No Sexually Abused: No Housing Stability: Unknown (05/24/2025) Housing Stability Vital Sign Unable to Pay for Housing in the Last Year: No Homeless in the Last Year: No Will Granado DO Resident 07/08/25 2339 Cosigned by Corky Plummer MD at 07/08/2025 11:48 PM EDT Emergency Department Encounter [facility] EMERGENCY DEPT Patient: Mel Wall : 1985 Date of Evaluation: 07/08/2025 ED Supervising Physician: Corky Plummer MD I personally saw Mel Wall and made/approved the management plan and take responsibility for the patient management. In brief, Mel Wall is a 40 y.o. that presents to the emergency department for evaluation of a bowel obstruction. Patient has a history of small bowel obstructions in the past. Patient has not had a bowel movement or flatus since yesterday and feels nauseated and abdominal pain. Patient was at [facility] emergency department and had imaging there concerning for small bowel obstruction transferred here to see surgery. Focused exam: General appearance: Well-appearing, no acute distress. Psych: Awake alert and oriented 3. Pleasant and cooperative. Skin: Warm and dry. Neck: Supple. Cardiovascular: Regular rate and rhythm. Lungs: no accessory muscle use, tachypnea, or retractions. Abdomen: Soft, mid abdominal tenderness, and nondistended, no rebound, rigidity, or guarding, positive bowel sounds 4 quadrants. Brief ED course/MDM: Patient presents emergency department for evaluation of small bowel obstruction. Patient transferred here from [facility] emergency department for surgery consultation. Dr. Coles remains industrial equipment wirer of record. EMERGENCY DEPARTMENT COURSE and DIFFERENTIAL DIAGNOSIS/MDM: Vitals: Vitals: 07/08/25 1801 07/08/25 1959 07/08/25 2101 07/08/25 2133 BP: 107/73 124/72 122/77 137/81 BP Location: Patient Position: Pulse: 59 62 72 90 Resp: 16 18 20 18 Temp: TempSrc: SpO2: 99% 100% 98% 98% Weight: Height: All diagnostic, treatment, and disposition decisions were made by myself in conjunction with the CASANDRA/Resident. I also supervised solares portions of any procedures performed by the CASANDRA/Resident. For all further details of the patient's emergency department visit, please see their documentation. This will serve as my supervisory note and shared attestation. I did perform a substantiative portion of the visit including all aspects of the medical decision making. (Please note that portions of this note may have been completed with a voice recognition program. Efforts were made to edit the dictations but occasionally words are mis-transcribed.) Corky Plummer MD [facility] Corky Plummer MD 07/08/252216 Emergency Department Encounter Location: [facility] EMERGENCY DEPT Patient: Mel Wall : 1985 Date of evaluation: 07/08/2025 ED Provider: Sher Ramirez DO Time received sign-out: 2329 Mel Wall was checked out to me by Dr Granado. Please see his/her initial documentation for details of the patient's initial ED presentation, physical exam and completed studies. I did perform a substantive portion of the visit including all aspects of the Medical Decision Making. In brief, Mel Wall is a 40 y.o. female that presented to the emergency department with worsening abd pain since yesterday, N/V, no bowel function since yesterday. History of Janel-n-y. Seen @ [facility] with concerning findings of fluid in her anastamosis Surg to see - DC Home after PO or med admit. I have reviewed and interpreted all of the currently available lab results and diagnostics from this visit: Results for orders placed or performed during the hospital encounter of 07/08/25 CBC auto differential Collection Time: 07/08/25 3:58 PM Result Value Ref Range Auto WBC 8.1 3.6 - 10.7 10*3/uL RBC 4.15 3.80 - 5.20 10*6/uL Hemoglobin 12.8 11.7 - 16.0 g/dL Hematocrit 37.7 35.0 - 47.0 % MCV 90.8 77.0 - 99.0 fL MCH 30.8 26.0 - 34.0 pg MCHC 34.0 30.5 - 36.0 % RDW 12.2 11.5 - 15.0 % Platelets 257 140 - 440 10*3/uL MPV 8.8 (L) 9.0 - 12.7 fL nRBC 0.0 0.0 - 2.0 /100 WBCs Neutrophils Relative 70.6 38.0 - 82.0 % Lymphocytes Relative 22.7 15.0 - 45.0 % Monocytes Relative 5.0 5.0 - 13.0 % Eosinophils Relative 1.1 0.0 - 6.0 % Basophils Relative 0.4 0.0 - 2.0 % Immature Grans % 0.2 0.0 - 2.0 % Neutrophils Absolute 5.7 1.8 - 7.5 10*3/uL Lymphocytes Absolute 1.8 1.0 - 4.3 10*3/uL Monocytes Absolute 0.4 0.0 - 0.9 10*3/uL Eosinophils Absolute 0.1 0.0 - 0.5 10*3/uL Basophils Absolute 0.0 0.0 - 0.2 10*3/uL Immature Grans Absolute 0.0 <0.1 10*3/uL Comprehensive metabolic panel Collection Time: 07/08/25 3:58 PM Result Value Ref Range SODIUM 139 136 - 145 mmol/L POTASSIUM 3.5 3.5 - 5.1 mmol/L CHLORIDE 107 98 - 107 mmol/L CARBON DIOXIDE 22 22 - 29 mmol/L ANION GAP 10 3 - 13 mmol/L UREA NITROGEN 10 8 - 21 mg/dL CREATININE 0.65 0.57 - 1.11 mg/dL GLUCOSE 127 (H) 74 - 100 mg/dL CALCIUM 8.6 8.4 - 10.2 mg/dL AST (SGOT) 14 <34 U/L ALT 13 <30 U/L ALKALINE PHOSPHATASE 37 (L) 40 - 150 U/L ALBUMIN 3.9 3.5 - 5.0 g/dL BILIRUBIN, TOTAL 0.3 <1.2 mg/dL TOTAL PROTEIN 6.8 6.4 - 8.3 g/dL eGFR >90.0 >60.0 mL/min/1.73m*2 Lipase Collection Time: 07/08/25 3:58 PM Result Value Ref Range LIPASE 19 <55 U/L hCG, quantitative, Collection Time: 07/08/25 3:58 PM Result Value Ref Range HCG QUANTITATIVE <2.5 Females <5 mIU/mL Urinalysis Complete with reflex to Culture Collection Time: 07/08/25 4:06 PM Result Value Ref Range Color, Urine Yellow Lt. Yellow Clarity, Urine Turbid (A) Clear pH, Urine 6.0 5.0 - 8.0 pH Leukocytes, Urine Negative Negative [place]/uL Nitrite, Urine Negative Negative Protein, Urine 20 (A) Negative mg/dL Glucose, Urine Normal Normal (<70) mg/dL Bilirubin, Urine Negative Negative mg/dL Ketones, Urine Trace (A) Negative mg/dL Urobilinogen, Urine 2 (A) Normal (0-1) mg/dL Blood, Urine Negative Negative mg/dL Volume, Urine 12 mL RBC, Urine 3-5 (A) 0 - 2 /HPF WBC, Urine 3-5 0 - 5 /HPF Squamous Epithelial, Urine 26-50 (A) 3 - 5 /HPF Bacteria, Urine Moderate (A) Negative /HPF Mucus, Urine Moderate (A) Negative /LPF Amorphous Crystals, Urine Moderate (A) Negative /HPF SPECIFIC GRAVITY OF URINE (NUMERIC) 1.032 (H) 1.005 - 1.030 Lactic acid with reflex Collection Time: 07/08/25 9:50 PM Result Value Ref Range LACTIC ACID 1.9 0.5 - 2.2 mmol/L CT abdomen pelvis w contrast Final Result 1. Postsurgical change and focal fluid within the left pelvis may represent fluid within anastomosis or distended bowel loop versus focal fluid within mesenteric leaf, but is nonspecific. Clinical correlation and follow-up as indicated. 2. No other acute findings or significant interval change. Please see above for further details. Report Dictated on Electronically Signed By: Sunil Thompson MD Electronically Signed Date/Time: 07/08/2025 5:40 PM EDT [place] upper GI single contrast w small bowel follow through (Results Pending) Final ED Course and MDM: In brief, Mel Wall is a 40 y.o. female whose care was signed out to me by the outgoing provider. In brief, reassessed the patient and stated that they wanted the patient medically admitted with them to follow to monitor abdominal pain, ability tolerate p.o. intake and nausea. Patient discussed with the hospital service the patient was admitted in stable condition. She did have recurrent abdominal pain which a ketamine trial was ordered. Is concerned at this time that if we continue give opioids when the patient is not have any bowel movements and they could worsen her symptoms. Medications ketamine 24.5 mg in sodium chloride 0.9 % 50 mL ivpb (has no administration in time range) acetaminophen (Tylenol) tablet 650 mg (has no administration in time range) Or acetaminophen (Tylenol) suppository 650 mg (has no administration in time range) polyethylene glycol (PEG) 3350 (Miralax) packet 17 g (has no administration in time range) influenza vaccine tiss-cult subunt (Flucelvax) STANDARD-DOSE injection 0.5 mL (has no administration in time range) enoxaparin (Lovenox) syringe 40 mg (has no administration in time range) lactated Ringer's (LR) infusion (has no administration in time range) HYDROcodone-acetaminophen ([place]) 5-325 MG per tablet 1 tablet (has no administration in time range) oxyCODONE-acetaminophen (Percocet) 5-325 MG per tablet 1 tablet (has no administration in time range) Or oxyCODONE-acetaminophen (Percocet) 5-325 MG per tablet 2 tablet (has no administration in time range) prochlorperazine (Compazine) tablet 10 mg (has no administration in time range) Or prochlorperazine (Compazine) injection 10 mg (has no administration in time range) Or prochlorperazine (Compazine) suppository 25 mg (has no administration in time range) prochlorperazine (Compazine) tablet 10 mg (has no administration in time range) Or prochlorperazine (Compazine) injection 10 mg (has no administration in time range) Or prochlorperazine (Compazine) suppository 25 mg (has no administration in time range) naloxone (Narcan) injection 0.4 mg (has no administration in time range) HYDROmorphone (Dilaudid) injection 1 mg (1 mg IntraVENous Given 07/08/25 1886) sodium chloride 0.9 % bolus 1,000 mL (0 mL IntraVENous Stopped 07/08/25 8384) promethazine (Phenergan) injection 25 mg (25 mg IntraMUSCular Given 07/08/25 1603) metoclopramide (Reglan) injection 10 mg (10 mg IntraVENous Given 07/08/25 1707) diphenhydrAMINE (BENADryl) injection 25 mg (25 mg IntraVENous Given 07/08/25 170) iopamidol (Isovue-370) 76 % injection 75 mL (75 mL IntraVENous Given 07/08/25 170) morphine injection 4 mg (4 mg IntraVENous Given 07/08/25 180) promethazine (Phenergan) injection 25 mg (25 mg IntraMUSCular Given 07/08/251909) morphine injection 4 mg (4 mg IntraVENous Given 07/08/251909) HYDROmorphone (Dilaudid) injection 0.5 mg (0.5 mg IntraVENous Given 07/08/252045) HYDROmorphone (Dilaudid) injection 0.5 mg (0.5 mg IntraVENous Given 07/08/252150) HYDROmorphone (Dilaudid) injection 0.5 mg (0.5 mg IntraVENous Given 07/09/25 003) Final Impression 1. Generalized abdominal pain 2. Nausea and vomiting, unspecified vomiting type Sher Ramirez DO [employer] Sher Ramirez DO Resident 07/09/258 Cosigned by Corky Plummer MD at 07/09/2025 4:05 PM EDT documented in this encounter [facility] 07-09-2025 Emergency department Note Pt reports 8/10 pain at this time and requesting pain medication, RN educated pt on PRN pain medications and pt requesting IV medication be ordered due to increasing nausea. Physician notified. [facility] 07-09-2025 History and physical note Attending History and Physical Admit Date: 07/08/2025 PCP: No primary care provider on file. CHIEF COMPLAINT: Abdominal pain nausea vomiting Reason for Admission: Nausea vomiting abdominal discomfort. History Obtained From: patient HISTORY OF PRESENT ILLNESS: Mel is a 40 y.o. female with past medical history below who presents with chief complaint listed above. This is a 40-year-old lady who. Has a history of bipolar depression obesity status post Janel-en-Y with DJ anastomosis 2008, multiple ventral hernia repairs, panniculectomy 08/07/2024 presents with recurrent abdominal pain nausea and vomiting. She denies fevers or chills. She gets these episodes frequently. There is no precipitating types of food that prompt these symptoms. She has been seen by pain management in the past and she is on a regimen of oxycodone cyclobenzaprine which has been working however she has not been able to tolerate them. She denies any fevers or chills and is currently being admitted for further evaluation follow-up.Will admit for further evaluation and management. Past Medical History: Medical History[1] Past Surgical History: Surgical History[2] Social History: Social History Socioeconomic History Marital status: Spouse name: Not on file Number of children: Not on file Years of education: Not on file Highest education level: Not on file Occupational History Not on file Tobacco Use Smoking status: Former Current packs/day: 0.00 Types: Cigarettes Quit date: 2020 Years since quittin.7 Smokeless tobacco: Never Tobacco comments: Patient states she quit smoking in 2020, no history of vaping or smokeless tobacco. Smoking cessation counseling not indicated. Vaping Use Vaping status: Never Used Substance and Sexual Activity Alcohol use: Not Currently Drug use: Yes Frequency: 2.0 times per week Types: Marijuana Comment: edibles Sexual activity: Not Currently Other Topics Concern Not on file Social History Narrative Not on file Social Drivers of Health Financial Resource Strain: Low Risk (05/24/2025) Overall Financial Resource Strain (CARDIA) Difficulty of Paying Living Expenses: Not hard at all Food Insecurity: No Food Insecurity (05/24/2025) Hunger Vital Sign Worried About Running Out of Food in the Last Year: Never true Ran Out of Food in the Last Year: Never true Transportation Needs: No Transportation Needs (05/24/2025) PRAPARE - Transportation Lack of Transportation (Medical): No Lack of Transportation (Non-Medical): No Physical Activity: Insufficiently Active (05/24/2025) Exercise Vital Sign Days of Exercise per Week: 2 days Minutes of Exercise per Session: 30 min Stress: Stress Concern Present (04/24/2024) [employer] [place] [employer] - Occupational Stress Questionnaire Feeling of Stress : Very much Social Connections: Moderately Integrated (04/24/2024) Social Connection and Isolation Panel [NHANES] Frequency of Communication with Friends and Family: Twice a week Frequency of Social Gatherings with Friends and Family: Once a week Attends Adventism Services: More than 4 times per year Active Member of Clubs or Organizations: No Attends Club or Organization Meetings: More than 4 times per year Marital Status: Intimate Partner Violence: Not At Risk (05/24/2025) Humiliation, Afraid, Rape, and Kick questionnaire Fear of Current or Ex-Partner: No Emotionally Abused: No Physically Abused: No Sexually Abused: No Housing Stability: Unknown (05/24/2025) Housing Stability Vital Sign Unable to Pay for Housing in the Last Year: No Number of Times Moved in the Last Year: Not on file Homeless in the Last Year: No Family History: Family History[3] Medications Prior to Admission: Current Medications[4] Medications Reconciliation: Medication were reviewed and verified as accurate with patient. Allergies: Allergies[5] REVIEW OF SYSTEMS: 10 point ROS obtained, as per HPI, otherwise NEG Vitals: BP 127/73 Pulse 64 Temp 37.1 C (98.7 F) (Temporal) Resp 18 Ht 5' 5 (1.651 m) Wt 218 lb (98.9 kg) SpO2 99% BMI 36.28 kg/m BMI Classification: Obese (BMI 30.0-39.9) Pulse Ox: SpO2 Av % Min: 98 % Max: 100 % Supplemental O2: PHYSICAL EXAM: Physical Exam General appearance that of a middle-aged female in moderate distress alert at the time examination. The head was normal maxillary sinuses and periorbital sinuses appear to be clear Neck was supple there was no JVD HJR or lymphadenopathy. Lungs were clear bilaterally with diminished breath sounds at both bases. Heart rhythm regular and rapid S1/S2 heart sounds are distant there were no extrasystoles premature systoles clicks or rubs. The abdomen was soft mildly distended there is no subxiphoid, right midepigastric or right upper quadrant tenderness to palpation there was a midline ventral vertical surgical scar which appeared to be well-healed however there was a small ventral hernia around that site in the mid abdominal region which was reducible. Bowel sounds were audible. There were no masses in the lower abdominal quadrants bilaterally. Range of motion of both upper and lower extremities appear to be symmetrical there are no lateralizing signs skin is otherwise warm and dry to touch. There were no ecchymoses or petechial lesions noted in the periphery. Laboratory: Sodium 139 potassium 3.5 chloride 107 carbon dioxide 22 BUN 10 creatinine 0.65 glucose 127 calcium 8.6 alkaline phosphatase 37 albumin 3.9 total protein 6.8 lipase 19 AST 14 ALT 13 total bilirubin 0.3 Lactic acid 1.9 WBC 8.1 hemoglobin 12.8 hematocrit 37.7 red cell indices were normal platelets 257 white cell differential normal. Urinalysis revealed a specific gravity 1.032 with a pH of 6.0 otherwise essentially within normal limits. CT scan abdomen pelvis with contrast: Postsurgical changes and focal fluid within the left pelvis may represent fluid within anastomosis or distended bowel loop versus focal fluid within mesenteric leaf but is nonspecific. Clinical correlation and follow-up is indicated. No other acute findings or significant interval changes. DATA: CBC: Recent Labs 07/08/25 1558 WBC 8.1 RBC 4.15 HGB 12.8 HCT 37.7 MCV 90.8 RDW 12.2 PLT 257 BMP: Recent Labs 07/08/25 1558 NA 139 K 3.5 CL 107 CO2 22 BUN 10 CREATININE 0.65 GLUCOSE 127* CALCIUM 8.6 ANIONGAP 10 LIVER PROFILE: Recent Labs 07/08/25 1558 AST 14 ALT 13 BILITOT 0.3 ALKPHOS 37* PROT 6.8 PT/INR: No results for input(s): PROTIME, INR in the last 72 hours. CARDIAC ENZYMES: No results for input(s): TROPONINI in the last 72 hours. Procalcitonin: No results found for: PROCAL Urine Culture: No results found for this or any previous visit. COVID-19 PCR: No results for input(s): COVID19 in the last 72 hours. I reviewed: [x] laboratory results [x] radiographic results At the time of today's encounter. Pt was advised of the results. Data: (CAT1) Reviewed 3 or more notes from different specialty or health system (each=1). (LOW: 2x CAT1 or independent historian MOD: 3x CAT1 or 1x CAT3 EXTENSIVE: 3x CAT1 and 1x CAT3) Assessment Discussed management with the ED provider and agree with hospitalization. Acute, acute on chronic, unstable/uncontrolled chronic problems/diagnoses: Status post Janel-en-Y, with multiple ventral hernia repairs in the past patient presents today with nausea vomiting abdominal distention with an apparent narrowing and changes at the anastomosis as noted above. I will place on clear liquids for now. Surgical consultation has been placed and they have seen her. Intravascular volume depletion will administer crystalloid resuscitation. Stable chronic problems affecting care, new non-acute diagnoses: Status post multiple ventral hernia repairs. Ventral hernia noted with reducible signs. Plan As a result of the above findings & factors, the following mgmt was pursued: - As above - am labs, replace lytes prn - PT/OT/CM/SW - delirium precautions: increase activity - DVT prophylaxis: enoxaparin and encourage ambulation Complexity: Acute illness or injury posing a threat to life or body function (HIGH). Risk: Advance Directive: Prior Anticipated Discharge - Date -07/12/2025 - Location -Home - Pending the following -results of treatment Total time spent (which include face to face and non face to face encounters) : 70 minutes. Extended Emergency Contact Information Primary Emergency Contact: nilton loredo [address]: [address] [place] [address] [place] Relation: Significant Other [employer] [facility] : 1985 Primary Care Physician: No primary care provider on file. The patient and/or family/surrogate voluntarily agreed to participate in ACP services. Patient s cognitive capacity: Alert and oriented x 4 Code Status: [_X] [FULL CODE - Continue all advanced life support: CPR,intubation,invasive procedures] [_] [DNR-CCA - DO NOT do CPR, intubation] [_] [DNR-GAS APPLIANCE REPAIRER - Comfort care only] [_] DNR form [was/was not] signed Summary of discussion: The patient health care POA/ surrogate is the following: Facundo Callaway. [Condition that instigated the ACP on this DOS, relevant PMH, functional status, goals of care, and whom this was discussed with including names and relationship to the patient, and any relevant advance care documentation discussion] I answered all the patient/family questions that I could within the range and scope of the current medical situation. We discussed the medical conditions, risks, benefits, outcomes, and goals of care at this time for the patient's medical issues at hand in the face of the patient's chronic issues and current presentation. Total time spent: 15 minutes were spent discussing the patient's resuscitation status, advance care planning, and end of life care, with patient and/or family/surrogate. 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 Partial obstruction of small intestine (HCC) 06/13/2024 [2] Past Surgical History: Procedure Laterality Date APPENDECTOMY BILIOPANCREATIC DIVERSION 10/23/2008 She[facility] @ [facility]; janel-en-y duodenojejunostomy for bile reflux CHOLECYSTECTOMY 02/2007 lap COLONOSCOPY N/A 11/29/2023 [facility]; repeat in 11/2033 EXPLORATORY LAPAROTOMY 06/10/2019 Veronica @ [facility]; ex lap, [facility] INCISION AND DRAINAGE OF WOUND 08/09/2013 [facility]; I&D of surgical incision of LLQ INCISIONAL HERNIA REPAIR 10/20/2017 [facility]; open primary repair INCISIONAL HERNIA REPAIR 07/12/2018 [facility]; open w/ mesh INCISIONAL HERNIA REPAIR 09/26/2018 [facility]; lap w/ mesh INCISIONAL HERNIA REPAIR 03/11/2020 [facility]; repair w/ mesh excision, mesh replacement ([facility] Mesh w/ Echo), WAI INCISIONAL HERNIA REPAIR 07/19/2015 [facility]; open repair w/ mesh INCISIONAL HERNIA REPAIR 08/07/2024 [facility]; an open recurrent repair w/ mesh, WAI, TAR, removal of infarcted cecal epiploic appendage PANNICULECTOMY (HISTORICAL) 08/07/2024 [facility] SOFT TISSUE MASS EXCISION 08/02/2013 [facility]; STM excision of LLQ TONSILLECTOMY [3] Family History Problem Relation Name Age of Onset Hypertension Father Diabetes Father [4] Current Facility-Administered Medications: ketamine 24.5 mg in sodium chloride 0.9 % 50 mL ivpb, 0.25 mg/kg, IntraVENous, Once, Sher Ramirez, DO Current Outpatient Medications: FLUoxetine (PROzac) 20 MG capsule, Take 20 mg by mouth daily., Disp: , Rfl: promethazine (Phenergan) 12.5 MG tablet, Take 12.5 mg by mouth every 8 hours as needed., Disp: , Rfl: [5] Allergies Allergen Reactions Ketorolac Hives and Shortness of breath Other reaction(s): Hives Ondansetron Shortness of breath and Hives Other reaction(s): Hives, Respiratory distress Seasonal Itching and Other Stuffy nose [facility] Work Phone: 07-09-2025 Note [facility] 07-09-2025 History and physical note Attending History and Physical Admit Date: 07/08/2025 PCP: No primary care provider on file. CHIEF COMPLAINT: Abdominal pain nausea vomiting Reason for Admission: Nausea vomiting abdominal discomfort. History Obtained From: patient HISTORY OF PRESENT ILLNESS: Mel is a 40 y.o. female with past medical history below who presents with chief complaint listed above. This is a 40-year-old lady who. Has a history of bipolar depression obesity status post Janel-en-Y with DJ anastomosis 2008, multiple ventral hernia repairs, panniculectomy 08/07/2024 presents with recurrent abdominal pain nausea and vomiting. She denies fevers or chills. She gets these episodes frequently. There is no precipitating types of food that prompt these symptoms. She has been seen by pain management in the past and she is on a regimen of oxycodone cyclobenzaprine which has been working however she has not been able to tolerate them. She denies any fevers or chills and is currently being admitted for further evaluation follow-up.Will admit for further evaluation and management. Past Medical History: Medical History[1] Past Surgical History: Surgical History[2] Social History: Social History Socioeconomic History Marital status: Spouse name: Not on file Number of children: Not on file Years of education: Not on file Highest education level: Not on file Occupational History Not on file Tobacco Use Smoking status: Former Current packs/day: 0.00 Types: Cigarettes Quit date: 2020 Years since quittin.7 Smokeless tobacco: Never Tobacco comments: Patient states she quit smoking in 2020, no history of vaping or smokeless tobacco. Smoking cessation counseling not indicated. Vaping Use Vaping status: Never Used Substance and Sexual Activity Alcohol use: Not Currently Drug use: Yes Frequency: 2.0 times per week Types: Marijuana Comment: edibles Sexual activity: Not Currently Other Topics Concern Not on file Social History Narrative Not on file Social Drivers of Health Financial Resource Strain: Low Risk (05/24/2025) Overall Financial Resource Strain (CARDIA) Difficulty of Paying Living Expenses: Not hard at all Food Insecurity: No Food Insecurity (05/24/2025) Hunger Vital Sign Worried About Running Out of Food in the Last Year: Never true Ran Out of Food in the Last Year: Never true Transportation Needs: No Transportation Needs (05/24/2025) PRAPARE - Transportation Lack of Transportation (Medical): No Lack of Transportation (Non-Medical): No Physical Activity: Insufficiently Active (05/24/2025) Exercise Vital Sign Days of Exercise per Week: 2 days Minutes of Exercise per Session: 30 min Stress: Stress Concern Present (04/24/2024) [employer] [place] [employer] - Occupational Stress Questionnaire Feeling of Stress : Very much Social Connections: Moderately Integrated (04/24/2024) Social Connection and Isolation Panel [NHANES] Frequency of Communication with Friends and Family: Twice a week Frequency of Social Gatherings with Friends and Family: Once a week Attends [employer] Services: More than 4 times per year Active Member of Clubs or Organizations: No Attends Club or Organization Meetings: More than 4 times per year Marital Status: Intimate Partner Violence: Not At Risk (05/24/2025) Humiliation, Afraid, Rape, and Kick questionnaire Fear of Current or Ex-Partner: No Emotionally Abused: No Physically Abused: No Sexually Abused: No Housing Stability: Unknown (05/24/2025) Housing Stability Vital Sign Unable to Pay for Housing in the Last Year: No Number of Times Moved in the Last Year: Not on file Homeless in the Last Year: No Family History: Family History[3] Medications Prior to Admission: Current Medications[4] Medications Reconciliation: Medication were reviewed and verified as accurate with patient. Allergies: Allergies[5] REVIEW OF SYSTEMS: 10 point ROS obtained, as per HPI, otherwise NEG Vitals: BP 127/73 Pulse 64 Temp 37.1 C (98.7 F) (Temporal) Resp 18 Ht 5' 5 (1.651 m) Wt 218 lb (98.9 kg) SpO2 99% BMI 36.28 kg/m BMI Classification: Obese (BMI 30.0-39.9) Pulse Ox: SpO2 Av % Min: 98 % Max: 100 % Supplemental O2: PHYSICAL EXAM: Physical Exam General appearance that of a middle-aged female in moderate distress alert at the time examination. The head was normal maxillary sinuses and periorbital sinuses appear to be clear Neck was supple there was no JVD HJR or lymphadenopathy. Lungs were clear bilaterally with diminished breath sounds at both bases. Heart rhythm regular and rapid S1/S2 heart sounds are distant there were no extrasystoles premature systoles clicks or rubs. The abdomen was soft mildly distended there is no subxiphoid, right midepigastric or right upper quadrant tenderness to palpation there was a midline ventral vertical surgical scar which appeared to be well-healed however there was a small ventral hernia around that site in the mid abdominal region which was reducible. Bowel sounds were audible. There were no masses in the lower abdominal quadrants bilaterally. Range of motion of both upper and lower extremities appear to be symmetrical there are no lateralizing signs skin is otherwise warm and dry to touch. There were no ecchymoses or petechial lesions noted in the periphery. Laboratory: Sodium 139 potassium 3.5 chloride 107 carbon dioxide 22 BUN 10 creatinine 0.65 glucose 127 calcium 8.6 alkaline phosphatase 37 albumin 3.9 total protein 6.8 lipase 19 AST 14 ALT 13 total bilirubin 0.3 Lactic acid 1.9 WBC 8.1 hemoglobin 12.8 hematocrit 37.7 red cell indices were normal platelets 257 white cell differential normal. Urinalysis revealed a specific gravity 1.032 with a pH of 6.0 otherwise essentially within normal limits. CT scan abdomen pelvis with contrast: Postsurgical changes and focal fluid within the left pelvis may represent fluid within anastomosis or distended bowel loop versus focal fluid within mesenteric leaf but is nonspecific. Clinical correlation and follow-up is indicated. No other acute findings or significant interval changes. DATA: CBC: Recent Labs 07/08/25 1558 WBC 8.1 RBC 4.15 HGB 12.8 HCT 37.7 MCV 90.8 RDW 12.2 PLT 257 BMP: Recent Labs 07/08/25 1558 NA 139 K 3.5 CL 107 CO2 22 BUN 10 CREATININE 0.65 GLUCOSE 127* CALCIUM 8.6 ANIONGAP 10 LIVER PROFILE: Recent Labs 07/08/25 1558 AST 14 ALT 13 BILITOT 0.3 ALKPHOS 37* PROT 6.8 PT/INR: No results for input(s): PROTIME, INR in the last 72 hours. CARDIAC ENZYMES: No results for input(s): TROPONINI in the last 72 hours. Procalcitonin: No results found for: PROCAL Urine Culture: No results found for this or any previous visit. COVID-19 PCR: No results for input(s): COVID19 in the last 72 hours. I reviewed: [x] laboratory results [x] radiographic results At the time of today's encounter. Pt was advised of the results. Data: (CAT1) Reviewed 3 or more notes from different specialty or health system (each=1). (LOW: 2x CAT1 or independent historian MOD: 3x CAT1 or 1x CAT3 EXTENSIVE: 3x CAT1 and 1x CAT3) Assessment Discussed management with the ED provider and agree with hospitalization. Acute, acute on chronic, unstable/uncontrolled chronic problems/diagnoses: Status post Janel-en-Y, with multiple ventral hernia repairs in the past patient presents today with nausea vomiting abdominal distention with an apparent narrowing and changes at the anastomosis as noted above. I will place on clear liquids for now. Surgical consultation has been placed and they have seen her. Intravascular volume depletion will administer crystalloid resuscitation. Stable chronic problems affecting care, new non-acute diagnoses: Status post multiple ventral hernia repairs. Ventral hernia noted with reducible signs. Plan As a result of the above findings & factors, the following mgmt was pursued: - As above - am labs, replace lytes prn - PT/OT/CM/SW - delirium precautions: increase activity - DVT prophylaxis: enoxaparin and encourage ambulation Complexity: Acute illness or injury posing a threat to life or body function (HIGH). Risk: Advance Directive: Prior Anticipated Discharge - Date -07/12/2025 - Location -Home - Pending the following -results of treatment Total time spent (which include face to face and non face to face encounters) : 70 minutes. Extended Emergency Contact Information Primary Emergency Contact: nilton loredo Address: [address] [id number] [place] Relation: Significant Other [employer] Mel Wall : 1985 Primary Care Physician: No primary care provider on file. The patient and/or family/surrogate voluntarily agreed to participate in ACP services. Patient s cognitive capacity: Alert and oriented x 4 Code Status: [_X] [FULL CODE - Continue all advanced life support: CPR,intubation,invasive procedures] [_] [DNR-CCA - DO NOT do CPR, intubation] [_] [DNR-GAS APPLIANCE REPAIRER - Comfort care only] [_] DNR form [was/was not] signed Summary of discussion: The patient health care POA/ surrogate is the following: Facundo Callaway. [Condition that instigated the ACP on this DOS, relevant PMH, functional status, goals of care, and whom this was discussed with including names and relationship to the patient, and any relevant advance care documentation discussion] I answered all the patient/family questions that I could within the range and scope of the current medical situation. We discussed the medical conditions, risks, benefits, outcomes, and goals of care at this time for the patient's medical issues at hand in the face of the patient's chronic issues and current presentation. Total time spent: 15 minutes were spent discussing the patient's resuscitation status, advance care planning, and end of life care, with patient and/or family/surrogate. 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 Partial obstruction of small intestine (HCC) 06/13/2024 [2] Past Surgical History: Procedure Laterality Date APPENDECTOMY BILIOPANCREATIC DIVERSION 10/23/2008 [facility] @ [facility]; janel-en-y duodenojejunostomy for bile reflux CHOLECYSTECTOMY 02/2007 lap COLONOSCOPY N/A 11/29/2023 [facility]; repeat in 11/2033 EXPLORATORY LAPAROTOMY 06/10/2019 [facility] @ [facility]; ex lap, WAI INCISION AND DRAINAGE OF WOUND 08/09/2013 [facility]; I&D of surgical incision of LLQ INCISIONAL HERNIA REPAIR 10/20/2017 [facility]; open primary repair INCISIONAL HERNIA REPAIR 07/12/2018 [facility]; open w/ mesh INCISIONAL HERNIA REPAIR 09/26/2018 [facility]; lap w/ mesh INCISIONAL HERNIA REPAIR 03/11/2020 [facility]; repair w/ mesh excision, mesh replacement ([facility] Mesh w/ Echo), WAI INCISIONAL HERNIA REPAIR 07/19/2015 [facility]; open repair w/ mesh INCISIONAL HERNIA REPAIR 08/07/2024 [facility]; an open recurrent repair w/ mesh, WAI, TAR, removal of infarcted cecal epiploic appendage PANNICULECTOMY (HISTORICAL) 08/07/2024 [facility] SOFT TISSUE MASS EXCISION 08/02/2013 [facility]; STM excision of LLQ TONSILLECTOMY [3] Family History Problem Relation Name Age of Onset Hypertension Father Diabetes Father [4] Current Facility-Administered Medications: ketamine 24.5 mg in sodium chloride 0.9 % 50 mL ivpb, 0.25 mg/kg, IntraVENous, Once, Sher Ramirez, Current Outpatient Medications: FLUoxetine (PROzac) 20 MG capsule, Take 20 mg by mouth daily., Disp: , Rfl: promethazine (Phenergan) 12.5 MG tablet, Take 12.5 mg by mouth every 8 hours as needed., Disp: , Rfl: [5] Allergies Allergen Reactions Ketorolac Hives and Shortness of breath Other reaction(s): Hives Ondansetron Shortness of breath and Hives Other reaction(s): Hives, Respiratory distress Seasonal Itching and Other Stuffy nose documented in this encounter [facility] 07-09-2025 Consult note Formatting of th is note is different from the original. Department of General Surgery Surgical Service - Surg 4 Resident Consult Note 07/08/2025 CHIEF COMPLAINT: Chief Complaint Patient presents with Abdominal Pain Pt states she is concerned she has a bowel obstruction, pt states she has a hx of bowel obstructions and this pain is similar but worse than the previous. Pt states she had a small bowel movement yesterday, unable to pass gas today. Pt also reports vomiting. Reason for Consult: Recurrent Abdominal Pain HISTORY OF PRESENT ILLNESS: Mel Wall is a 40 y.o. female with PMHX of bipolar/depression, obesity s/p Janel-en-Y with DJ anastomosis (2008) and multiple ventral hernia repairs, panniculectomy (Dr. Taylor, 08/07/2024) who presents with recurrent abdominal pain. General surgery consulted for recurrent abdominal pain. Patient states she typically gets these episodes of abdominal pain but this episode feels different from prior but she cannot really explain it. She was seen by pain management before and her current regimen of oxycodone and cyclobenzaprine that works for her but due to her inability to tolerate PO, she has not been able to take that. She endorses nausea with no vomiting (spit up of bile), no flatus, but last BM was yesterday 07/07. Denies fevers or chills. Upon evaluation, patient is AF, HDS. Labs notable for: WBC: 8.1 H/H: 12.8/37.7 Plt: 257 BUN/Cr: 10/0.65 CTAP shows chronic postoperative changes with non-specific pelvic fluid with otherwise no acute findings. Medical History[1] Surgical History[2] Medications Prior to Admission: Prior to Admission medications Medication Sig Start Date End Date Taking? Authorizing Provider cyclobenzaprine (Flexeril) 10 MG tablet 06/12/25 Historical Provider, FLUoxetine (PROzac) 20 MG capsule Take 20 mg by mouth daily. 11/23/22 Historical Provider, lidocaine (Lidoderm) 5 % patch Place 1 patch on the skin daily. 10/24/24 Historical Provider, oxyCODONE (Roxicodone) 5 MG immediate release tablet Take 5 mg by mouth every 6 hours as needed. 06/12/25 Historical Provider, promethazine (Phenergan) 12.5 MG tablet Take 12.5 mg by mouth every 8 hours as needed. 04/29/25 Historical Provider, Allergies: Ketorolac, Ondansetron, and Seasonal Social History[3] Family History[4] REVIEW OF SYSTEMS: Review of Systems Constitutional: Negative for chills and fever. Respiratory: Negative for chest tightness and shortness of breath. Cardiovascular: Negative for chest pain and leg swelling. Gastrointestinal: Positive for abdominal pain, nausea and vomiting. Negative for abdominal distention, constipation and diarrhea. Genitourinary: Negative for flank pain. Musculoskeletal: Negative for back pain. Neurological: Negative for headaches. Psychiatric/Behavioral: Negative for agitation and confusion. PHYSICAL EXAM: Vitals: 07/08/25 2133 BP: 137/81 Pulse: 90 Resp: 18 Temp: SpO2: 98% No intake/output data recorded. Physical Exam Vitals reviewed. Constitutional: General: She is not in acute distress. Appearance: Normal appearance. She is not toxic-appearing. HENT: Head: Normocephalic and atraumatic. Nose: Nose normal. Eyes: General: No scleral icterus. Conjunctiva/sclera: Conjunctivae normal. Cardiovascular: Rate and Rhythm: Normal rate and regular rhythm. Pulmonary: Effort: Pulmonary effort is normal. No respiratory distress. Abdominal: General: Abdomen is flat. There is no distension. Palpations: Abdomen is soft. Tenderness: There is abdominal tenderness. There is no guarding or rebound. Comments: Right periumbilical tenderness that radiates to the left. Difficult to palpate for distension given history of panniculectomy. No obvious peritonitis.Otherwise is soft and flat. Prior incisions are well healed. Ventral wall hernia is soft. Musculoskeletal: General: No swelling or tenderness. Cervical back: Normal range of motion. Skin: General: Skin is warm and dry. Capillary Refill: Capillary refill takes less than 2 seconds. Neurological: General: No focal deficit present. Mental Status: She is alert and oriented to person, place, and time. Psychiatric: Mood and Affect: Mood normal. Behavior: Behavior normal. DATA: CBC: Lab Results Component Value Date WBC 8.1 07/08/2025 RBC 4.15 07/08/2025 HGB 12.8 07/08/2025 HCT 37.7 07/08/2025 MCV 90.8 07/08/2025 MCH 30.8 07/08/2025 MCHC 34.0 07/08/2025 RDW 12.2 07/08/2025 PLT 257 07/08/2025 MPV 8.8 (L) 07/08/2025 BMP: Lab Results Component Value Date NA 139 07/08/2025 K 3.5 07/08/2025 CL 107 07/08/2025 CO2 22 07/08/2025 BUN 10 07/08/2025 CREATININE 0.65 07/08/2025 CALCIUM 8.6 07/08/2025 GLUCOSE 127 (H) 07/08/2025 Hepatic Function Panel: Lab Results Component Value Date ALKPHOS 37 (L) 07/08/2025 ALT 13 07/08/2025 AST 14 07/08/2025 PROT 6.8 07/08/2025 BILITOT 0.3 07/08/2025 PT/INR: No results found for: PROTIME, INR Troponin: No results found for: TROPONINI LIPASE: Lab Results Component Value Date LIPASE 19 07/08/2025 IMAGING: CT abdomen pelvis w contrast Result Date: 07/08/2025 Patient Name: [facility] WALL [facility] 1985 [id number] Exam Date/Time: 07/08/2025 16:52 Procedure: CT ABDOMEN PELVIS W CONTRAST Ordering Provider: OROZCO BRIGID Reason For Exam: Bowel obstruction suspected CT ABDOMEN AND PELVIS WITH CONTRAST CLINICAL INDICATION: Bowel obstruction suspected TECHNIQUE: CT scan of the abdomen and pelvis, with IV contrast. Multiplanar reformations. Dose reduction was employed with automated exposure control. COMPARISON: May,. FINDINGS: Abdomen: Visualized lung bases grossly unremarkable. Gallbladder surgically absent. Liver without significant abnormality. Spleen without significant abnormality. Pancreas without significant abnormality. Kidneys without significant abnormality. Punctate calcification again noted in the right kidney without significant hydronephrosis. Probable small, bilateral renal cyst(s) also similar. Adrenal glands without significant abnormality. Pelvis: Postsurgical change and small bowel anastomoses noted in the pelvis. Ovoid focus of fluid attenuation in the left pelvis measuring approximately 4 cm in maximal diameter, nonspecific. No other, apparent bowel obstruction. Appendix not confidently identified and probably surgically absent. No significant, free fluid or apparent adenopathy. Abdominal aorta is nonaneurysmal. Tubal ligation clips again noted. Axial skeleton without acute abnormality. Rounded, sclerotic focus again noted in T9 vertebral body may represent bone island, not appreciably changed. Fat-containing, multifocal ventral hernia is again noted in the upper-mid abdominal wall. 1. Postsurgical change and focal fluid within the left pelvis may represent fluid within anastomosis or distended bowel loop versus focal fluid within mesenteric leaf, but is nonspecific. Clinical correlation and follow-up as indicated. 2. No other acute findings or significant interval change. Please see above for further details. Report Dictated on Electronically Signed By: Sunil Thompson MD Electronically Signed Date/Time: 07/08/2025 5:40 PM EDT ASSESSMENT: This is a 39 y.o. female with complex surgical history most recently involving open recurrent IHR (08/07/24) w/ mesh, WAI, TAR, panniculectomy, removal or infarcted cecal epiploic appendage presenting with acute on chronic abdominal pain. CT scan with postsurgical changes and focal fluid within left pelvis from unclear etiology. PLAN: - No surgical intervention - Plan for UGI with SBFT tomorrow to further delineate obstipation and pelvic fluid - NPO until after UGI/SBFT, then likely diet as tolerated - Rest of care per primary - Will follow Discussed with attending, Dr. Taylor. Guy Rodrigues MD General Surgery PGY-3 Pager [phone] ATTESTATION The patient was seen and examined. I have reviewed the patients presentation, histories, imaging and serology studies. I agree with the above assessment and plan. Ab: Soft, Non-distended, non-tender Patient resting in bed. Pain is well-controlled. Patient states that yesterday she developed findings that were concerning for a small bowel obstruction. CT scan of the abdomen and pelvis showed nonspecific findings at the level of her prior duodenal ileostomy. Given these findings, we proceeded with a upper GI with small bowel follow-through today. Contrast reached the colon within 60 minutes. There were no abnormalities at the anastomosis. Given her previous CT scans which revealed subtle abnormalities at this anastomosis, I recommend proceeding with an EGD with biopsy as an outpatient. This was discussed extensively with the patient patient is understanding of this. The patient's known recurrent ventral hernia appears stable. I do not recommend operative intervention this admission. Continue management per the medical team. Thank you for allowing me to participate in the care of this patient, please call with any questions, concerns or if the patient status changes. --------- I personally performed the evaluation and management of Mel Wall in the development of a treatment plan for this patient. I personally interviewed the patient and performed an individual physical examination. In addition, I discussed the patient's condition and treatment options with them. I have also reviewed and agree with the past medical, family and social history unless otherwise noted. All of the patient's questions were answered. I personally spent 55 minutes of time between the face to face encounter, physical exam, reviewing the medical history, coordinating the patient's care, counseling/educating the patient, ordering prescriptions/medications/tests/proc edures, interpreting results and documenting clinical information in the patient's electronic health record on the day of the encounter. 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 Partial obstruction of small intestine (HCC) 06/13/2024 [2] Past Surgical History: Procedure Laterality Date APPENDECTOMY BILIOPANCREATIC DIVERSION 10/23/2008 She[facility] @ [place]; janel-en-y duodenojejunostomy for bile reflux CHOLECYSTECTOMY 02/2007 lap COLONOSCOPY N/A 11/29/2023 [facility]; repeat in 11/2033 EXPLORATORY LAPAROTOMY 06/10/2019 [facility] @ [facility]; ex lap, WAI INCISION AND DRAINAGE OF WOUND 08/09/2013 [place]; I&D of surgical incision of LLQ INCISIONAL HERNIA REPAIR 10/20/2017 [facility]; open primary repair INCISIONAL HERNIA REPAIR 07/12/2018 [facility]; open w/ mesh INCISIONAL HERNIA REPAIR 09/26/2018 [facility]; lap w/ mesh INCISIONAL HERNIA REPAIR 03/11/2020 ; repair w/ mesh excision, mesh replacement ([facility] Mesh w/ Echo), WAI INCISIONAL HERNIA REPAIR 07/19/2015 [facility]; open repair w/ mesh INCISIONAL HERNIA REPAIR 08/07/2024 [facility]; an open recurrent repair w/ mesh, WAI, TAR, removal of infarcted cecal epiploic appendage PANNICULECTOMY (HISTORICAL) 08/07/2024 [facility] SOFT TISSUE MASS EXCISION 08/02/2013 [facility]; STM excision of LLQ TONSILLECTOMY [3] Social History Socioeconomic History Marital status: Tobacco Use Smoking status: Former Current packs/day: 0.00 Types: Cigarettes Quit date: 2020 Years since quittin.7 Smokeless tobacco: Never Tobacco comments: Patient states she quit smoking in 2020, no history of vaping or smokeless tobacco. Smoking cessation counseling not indicated. Vaping Use Vaping status: Never Used Substance and Sexual Activity Alcohol use: Not Currently Drug use: Yes Frequency: 2.0 times per week Types: Marijuana Comment: edibles Sexual activity: Not Currently Social Drivers of Health Financial Resource Strain: Low Risk (05/24/2025) Overall Financial Resource Strain (CARDIA) Difficulty of Paying Living Expenses: Not hard at all Food Insecurity: No Food Insecurity (05/24/2025) Hunger Vital Sign Worried About Running Out of Food in the Last Year: Never true Ran Out of Food in the Last Year: Never true Transportation Needs: No Transportation Needs (05/24/2025) PRAPARE - Transportation Lack of Transportation (Medical): No Lack of Transportation (Non-Medical): No Physical Activity: Insufficiently Active (05/24/2025) Exercise Vital Sign Days of Exercise per Week: 2 days Minutes of Exercise per Session: 30 min Stress: Stress Concern Present (04/24/2024) [employer] [place] [employer] - Occupational Stress Questionnaire Feeling of Stress : Very much Social Connections: Moderately Integrated (04/24/2024) Social Connection and Isolation Panel [NHANES] Frequency of Communication with Friends and Family: Twice a week Frequency of Social Gatherings with Friends and Family: Once a week Attends Adventism Services: More than 4 times per year Active Member of Clubs or Organizations: No Attends Club or Organization Meetings: More than 4 times per year Marital Status: Intimate Partner Violence: Not At Risk (05/24/2025) Humiliation, Afraid, Rape, and Kick questionnaire Fear of Current or Ex-Partner: No Emotionally Abused: No Physically Abused: No Sexually Abused: No Housing Stability: Unknown (05/24/2025) Housing Stability Vital Sign Unable to Pay for Housing in the Last Year: No Homeless in the Last Year: No [4] Family History Problem Relation Name Age of Onset Hypertension Father Diabetes Father [facility] 07-09-2025 Consult note Formatting of th is note is different from the original. Department of General Surgery Surgical Service - Surg 4 Resident Consult Note 07/08/2025 CHIEF COMPLAINT: Chief Complaint Patient presents with Abdominal Pain Pt states she is concerned she has a bowel obstruction, pt states she has a hx of bowel obstructions and this pain is similar but worse than the previous. Pt states she had a small bowel movement yesterday, unable to pass gas today. Pt also reports vomiting. Reason for Consult: Recurrent Abdominal Pain HISTORY OF PRESENT ILLNESS: Mel Wall is a 40 y.o. female with PMHX of bipolar/depression, obesity s/p Janel-en-Y with DJ anastomosis (2008) and multiple ventral hernia repairs, panniculectomy (Dr. Taylor, 08/07/2024) who presents with recurrent abdominal pain. General surgery consulted for recurrent abdominal pain. Patient states she typically gets these episodes of abdominal pain but this episode feels different from prior but she cannot really explain it. She was seen by pain management before and her current regimen of oxycodone and cyclobenzaprine that works for her but due to her inability to tolerate PO, she has not been able to take that. She endorses nausea with no vomiting (spit up of bile), no flatus, but last BM was yesterday 07/07. Denies fevers or chills. Upon evaluation, patient is AF, HDS. Labs notable for: WBC: 8.1 H/H: 12.8/37.7 Plt: 257 BUN/Cr: 10/0.65 CTAP shows chronic postoperative changes with non-specific pelvic fluid with otherwise no acute findings. Medical History[1] Surgical History[2] Medications Prior to Admission: Prior to Admission medications Medication Sig Start Date End Date Taking? Authorizing Provider cyclobenzaprine (Flexeril) 10 MG tablet 06/12/25 Historical Provider, FLUoxetine (PROzac) 20 MG capsule Take 20 mg by mouth daily. 11/23/22 Historical Provider, lidocaine (Lidoderm) 5 % patch Place 1 patch on the skin daily. 10/24/24 Historical Provider, oxyCODONE (Roxicodone) 5 MG immediate release tablet Take 5 mg by mouth every 6 hours as needed. 06/12/25 Historical Provider, promethazine (Phenergan) 12.5 MG tablet Take 12.5 mg by mouth every 8 hours as needed. 04/29/25 Historical Provider, Allergies: Ketorolac, Ondansetron, and Seasonal Social History[3] Family History[4] REVIEW OF SYSTEMS: Review of Systems Constitutional: Negative for chills and fever. Respiratory: Negative for chest tightness and shortness of breath. Cardiovascular: Negative for chest pain and leg swelling. Gastrointestinal: Positive for abdominal pain, nausea and vomiting. Negative for abdominal distention, constipation and diarrhea. Genitourinary: Negative for flank pain. Musculoskeletal: Negative for back pain. Neurological: Negative for headaches. Psychiatric/Behavioral: Negative for agitation and confusion. PHYSICAL EXAM: Vitals: 07/08/25 2133 BP: 137/81 Pulse: 90 Resp: 18 Temp: SpO2: 98% No intake/output data recorded. Physical Exam Vitals reviewed. Constitutional: General: She is not in acute distress. Appearance: Normal appearance. She is not toxic-appearing. HENT: Head: Normocephalic and atraumatic. Nose: Nose normal. Eyes: General: No scleral icterus. Conjunctiva/sclera: Conjunctivae normal. Cardiovascular: Rate and Rhythm: Normal rate and regular rhythm. Pulmonary: Effort: Pulmonary effort is normal. No respiratory distress. Abdominal: General: Abdomen is flat. There is no distension. Palpations: Abdomen is soft. Tenderness: There is abdominal tenderness. There is no guarding or rebound. Comments: Right periumbilical tenderness that radiates to the left. Difficult to palpate for distension given history of panniculectomy. No obvious peritonitis.Otherwise is soft and flat. Prior incisions are well healed. Ventral wall hernia is soft. Musculoskeletal: General: No swelling or tenderness. Cervical back: Normal range of motion. Skin: General: Skin is warm and dry. Capillary Refill: Capillary refill takes less than 2 seconds. Neurological: General: No focal deficit present. Mental Status: She is alert and oriented to person, place, and time. Psychiatric: Mood and Affect: Mood normal. Behavior: Behavior normal. DATA: CBC: Lab Results Component Value Date WBC 8.1 07/08/2025 RBC 4.15 07/08/2025 HGB 12.8 07/08/2025 HCT 37.7 07/08/2025 MCV 90.8 07/08/2025 MCH 30.8 07/08/2025 MCHC 34.0 07/08/2025 RDW 12.2 07/08/2025 PLT 257 07/08/2025 MPV 8.8 (L) 07/08/2025 BMP: Lab Results Component Value Date NA 139 07/08/2025 K 3.5 07/08/2025 CL 107 07/08/2025 CO2 22 07/08/2025 BUN 10 07/08/2025 CREATININE 0.65 07/08/2025 CALCIUM 8.6 07/08/2025 GLUCOSE 127 (H) 07/08/2025 Hepatic Function Panel: Lab Results Component Value Date ALKPHOS 37 (L) 07/08/2025 ALT 13 07/08/2025 AST 14 07/08/2025 PROT 6.8 07/08/2025 BILITOT 0.3 07/08/2025 PT/INR: No results found for: PROTIME, INR Troponin: No results found for: TROPONINI LIPASE: Lab Results Component Value Date LIPASE 19 07/08/2025 IMAGING: CT abdomen pelvis w contrast Result Date: 07/08/2025 [facility]ALL [facility] 1985 [id number] Exam Date/Time: 07/08/2025 16:52 Procedure: CT ABDOMEN PELVIS W CONTRAST Ordering Provider: OROZCO BRIGID Reason For Exam: Bowel obstruction suspected CT ABDOMEN AND PELVIS WITH CONTRAST CLINICAL INDICATION: Bowel obstruction suspected TECHNIQUE: CT scan of the abdomen and pelvis, with IV contrast. Multiplanar reformations. Dose reduction was employed with automated exposure control. COMPARISON: May,. FINDINGS: Abdomen: Visualized lung bases grossly unremarkable. Gallbladder surgically absent. Liver without significant abnormality. Spleen without significant abnormality. Pancreas without significant abnormality. Kidneys without significant abnormality. Punctate calcification again noted in the right kidney without significant hydronephrosis. Probable small, bilateral renal cyst(s) also similar. Adrenal glands without significant abnormality. Pelvis: Postsurgical change and small bowel anastomoses noted in the pelvis. Ovoid focus of fluid attenuation in the left pelvis measuring approximately 4 cm in maximal diameter, nonspecific. No other, apparent bowel obstruction. Appendix not confidently identified and probably surgically absent. No significant, free fluid or apparent adenopathy. Abdominal aorta is nonaneurysmal. Tubal ligation clips again noted. Axial skeleton without acute abnormality. Rounded, sclerotic focus again noted in T9 vertebral body may represent bone island, not appreciably changed. Fat-containing, multifocal ventral hernia is again noted in the upper-mid abdominal wall. 1. Postsurgical change and focal fluid within the left pelvis may represent fluid within anastomosis or distended bowel loop versus focal fluid within mesenteric leaf, but is nonspecific. Clinical correlation and follow-up as indicated. 2. No other acute findings or significant interval change. Please see above for further details. Report Dictated on Electronically Signed By: Sunil Thompson MD Electronically Signed Date/Time: 07/08/2025 5:40 PM EDT ASSESSMENT: This is a 39 y.o. female with complex surgical history most recently involving open recurrent IHR (08/07/24) w/ mesh, WAI, TAR, panniculectomy, removal or infarcted cecal epiploic appendage presenting with acute on chronic abdominal pain. CT scan with postsurgical changes and focal fluid within left pelvis from unclear etiology. PLAN: - No surgical intervention - Plan for UGI with SBFT tomorrow to further delineate obstipation and pelvic fluid - NPO until after UGI/SBFT, then likely diet as tolerated - Rest of care per primary - Will follow Discussed with attending, Dr. Taylor. Guy Rodrigues MD General Surgery PGY-3 Pager [phone] ATTESTATION The patient was seen and examined. I have reviewed the patients presentation, histories, imaging and serology studies. I agree with the above assessment and plan. Ab: Soft, Non-distended, non-tender Patient resting in bed. Pain is well-controlled. Patient states that yesterday she developed findings that were concerning for a small bowel obstruction. CT scan of the abdomen and pelvis showed nonspecific findings at the level of her prior duodenal ileostomy. Given these findings, we proceeded with a upper GI with small bowel follow-through today. Contrast reached the colon within 60 minutes. There were no abnormalities at the anastomosis. Given her previous CT scans which revealed subtle abnormalities at this anastomosis, I recommend proceeding with an EGD with biopsy as an outpatient. This was discussed extensively with the patient patient is understanding of this. The patient's known recurrent ventral hernia appears stable. I do not recommend operative intervention this admission. Continue management per the medical team. Thank you for allowing me to participate in the care of this patient, please call with any questions, concerns or if the patient status changes. --------- I personally performed the evaluation and management of Mel Wall in the development of a treatment plan for this patient. I personally interviewed the patient and performed an individual physical examination. In addition, I discussed the patient's condition and treatment options with them. I have also reviewed and agree with the past medical, family and social history unless otherwise noted. All of the patient's questions were answered. I personally spent 55 minutes of time between the face to face encounter, physical exam, reviewing the medical history, coordinating the patient's care, counseling/educating the patient, ordering prescriptions/medications/tests/proc edures, interpreting results and documenting clinical information in the patient's electronic health record on the day of the encounter. 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 Partial obstruction of small intestine (HCC) 06/13/2024 [2] Past Surgical History: Procedure Laterality Date APPENDECTOMY BILIOPANCREATIC DIVERSION 10/23/2008 Sherie @ [facility]; janel-en-y duodenojejunostomy for bile reflux CHOLECYSTECTOMY 02/2007 lap COLONOSCOPY N/A 11/29/2023 [facility]; repeat in 11/2033 EXPLORATORY LAPAROTOMY 06/10/2019 Veronica @ [facility]; ex lap, WAI INCISION AND DRAINAGE OF WOUND 08/09/2013 [place]; I&D of surgical incision of LLQ INCISIONAL HERNIA REPAIR 10/20/2017 [facility]; open primary repair INCISIONAL HERNIA REPAIR 07/12/2018 [facility]; open w/ mesh INCISIONAL HERNIA REPAIR 09/26/2018 [facility]; lap w/ mesh INCISIONAL HERNIA REPAIR 03/11/2020 [facility]; repair w/ mesh excision, mesh replacement ([facility] Mesh w/ Echo), WAI INCISIONAL HERNIA REPAIR 07/19/2015 [facility]; open repair w/ mesh INCISIONAL HERNIA REPAIR 08/07/2024 [facility]; an open recurrent repair w/ mesh, WAI, TAR, removal of infarcted cecal epiploic appendage PANNICULECTOMY (HISTORICAL) 08/07/2024 [facility] SOFT TISSUE MASS EXCISION 08/02/2013 [facility]; STM excision of LLQ TONSILLECTOMY [3] Social History Socioeconomic History Marital status: Tobacco Use Smoking status: Former Current packs/day: 0.00 Types: Cigarettes Quit date: 2020 Years since quittin.7 Smokeless tobacco: Never Tobacco comments: Patient states she quit smoking in 2020, no history of vaping or smokeless tobacco. Smoking cessation counseling not indicated. Vaping Use Vaping status: Never Used Substance and Sexual Activity Alcohol use: Not Currently Drug use: Yes Frequency: 2.0 times per week Types: Marijuana Comment: edibles Sexual activity: Not Currently Social Drivers of Health Financial Resource Strain: Low Risk (05/24/2025) Overall Financial Resource Strain (CARDIA) Difficulty of Paying Living Expenses: Not hard at all Food Insecurity: No Food Insecurity (05/24/2025) Hunger Vital Sign Worried About Running Out of Food in the Last Year: Never true Ran Out of Food in the Last Year: Never true Transportation Needs: No Transportation Needs (05/24/2025) PRAPARE - Transportation Lack of Transportation (Medical): No Lack of Transportation (Non-Medical): No Physical Activity: Insufficiently Active (05/24/2025) Exercise Vital Sign Days of Exercise per Week: 2 days Minutes of Exercise per Session: 30 min Stress: Stress Concern Present (04/24/2024) [employer] [place] [employer] - Occupational Stress Questionnaire Feeling of Stress : Very much Social Connections: Moderately Integrated (04/24/2024) Social Connection and Isolation Panel [NHANES] Frequency of Communication with Friends and Family: Twice a week Frequency of Social Gatherings with Friends and Family: Once a week Attends Adventism Services: More than 4 times per year Active Member of Clubs or Organizations: No Attends Club or Organization Meetings: More than 4 times per year Marital Status: Intimate Partner Violence: Not At Risk (05/24/2025) Humiliation, Afraid, Rape, and Kick questionnaire Fear of Current or Ex-Partner: No Emotionally Abused: No Physically Abused: No Sexually Abused: No Housing Stability: Unknown (05/24/2025) Housing Stability Vital Sign Unable to Pay for Housing in the Last Year: No Homeless in the Last Year: No [4] Family History Problem Relation Name Age of Onset Hypertension Father Diabetes Father documented in this encounter [facility] 07-08-2025 Emergency department Note Pt arrives to [facility] ED via EMS at this time [facility] 07-08-2025 Emergency department Note Still needs wrist band [facility] 07-08-2025 Emergency department Note Went to medicate pt but she had been taken to radiology. [facility] 07-08-2025 Emergency department Note This RN was informed by Saud, hardware trainer that the pt was vomiting. He stated he informed Dr. Orozco. [facility] 07-08-2025 Physician Emergency department Note EMERGENCY DEPARTMENT ENCOUNTER Pt Name: Mel Wall Birthdate 1985 Date of evaluation: 07/08/2025 ED Provider: Jacqueline Orozco DO CHIEF COMPLAINT Chief Complaint Patient presents with Abdominal Pain Pt states she is concerned she has a bowel obstruction, pt states she has a hx of bowel obstructions and this pain is similar but worse than the previous. Pt states she had a small bowel movement yesterday, unable to pass gas today. Pt also reports vomiting. HISTORY OF PRESENT ILLNESS (Location/Symptom, Timing/Onset, Context/Setting, Quality, Duration, Modifying Factors, Severity) Note limiting factors. I wore appropriate PPE for the entirety of this encounter. HPI 40-year-old resents emergency room today with diffuse abdominal pain, nausea, vomiting, inability to pass gas. History of multiple hernia repair surgeries, cholecystectomy, appendectomy and several bowel obstructions in the past which had been managed both conservatively and surgically. Nursing Notes were reviewed. Limitations to history: None Outside historians: None REVIEW OF SYSTEMS Review of Systems Gastrointestinal: Positive for abdominal pain, nausea and vomiting. Pertinent positives and negatives as per HPI. PAST MEDICAL HISTORY Medical History[1] SURGICAL HISTORY Surgical History[2] CURRENT MEDICATIONS Previous Medications CYCLOBENZAPRINE (FLEXERIL) 10 MG TABLET FLUOXETINE (PROZAC) 20 MG CAPSULE Take 20 mg by mouth daily. LIDOCAINE (LIDODERM) 5 % PATCH Place 1 patch on the skin daily. OXYCODONE (ROXICODONE) 5 MG IMMEDIATE RELEASE TABLET Take 5 mg by mouth every 6 hours as needed. PROMETHAZINE (PHENERGAN) 12.5 MG TABLET Take 12.5 mg by mouth every 8 hours as needed. ALLERGIES Ketorolac, Ondansetron, and Seasonal FAMILY HISTORY Family History[3] SOCIAL HISTORY Social History[4] SCREENINGS [place] Coma Scale Best Eye Response: Spontaneous Best Verbal Response: Oriented Best Motor Response: Follows commands Tommy Coma Scale Score: 15 PHYSICAL EXAM ED Triage Vitals [07/08/25 1515] Temp Heart Rate Resp BP 37.1 C (98.7 F) 105 20 (!) 144/103 SpO2 Temp Source Heart Rate Source Patient Position 100 % Temporal Monitor Sitting BP Location FiO2 (%) Right arm -- Physical Exam Vitals and nursing note reviewed. Constitutional: General: She is not in acute distress. Appearance: She is well-developed. HENT: Head: Normocephalic and atraumatic. Eyes: Conjunctiva/sclera: Conjunctivae normal. Cardiovascular: Rate and Rhythm: Normal rate and regular rhythm. Heart sounds: No murmur heard. Pulmonary: Effort: Pulmonary effort is normal. No respiratory distress. Breath sounds: Normal breath sounds. Abdominal: Palpations: Abdomen is soft. Tenderness: There is abdominal tenderness in the right upper quadrant, epigastric area and left upper quadrant. Musculoskeletal: General: No swelling. Cervical back: Neck supple. Skin: General: Skin is warm and dry. Capillary Refill: Capillary refill takes less than 2 seconds. Neurological: Mental Status: She is alert. Psychiatric: Mood and Affect: Mood normal. DIAGNOSTIC RESULTS Procedures/EKG: RADIOLOGY (Per Emergency Physician): Interpretation per the Radiologist below, if available at the time of this note: CT abdomen pelvis w contrast Final Result 1. Postsurgical change and focal fluid within the left pelvis may represent fluid within anastomosis or distended bowel loop versus focal fluid within mesenteric leaf, but is nonspecific. Clinical correlation and follow-up as indicated. 2. No other acute findings or significant interval change. Please see above for further details. Report Dictated on Electronically Signed By: Sunil Thompson MD Electronically Signed Date/Time: 07/08/2025 5:40 PM EDT ED BEDSIDE ULTRASOUND: Performed by ED Physician - none LABS: Labs Reviewed CBC WITH AUTO DIFFERENTIAL - Abnormal Result Value Auto WBC 8.1 RBC 4.15 Hemoglobin 12.8 Hematocrit 37.7 MCV 90.8 MCH 30.8 MCHC 34.0 RDW 12.2 Platelets 257 MPV 8.8 (*) nRBC 0.0 Neutrophils Relative 70.6 Lymphocytes Relative 22.7 Monocytes Relative 5.0 Eosinophils Relative 1.1 Basophils Relative 0.4 Immature Grans % 0.2 Neutrophils Absolute 5.7 Lymphocytes Absolute 1.8 Monocytes Absolute 0.4 Eosinophils Absolute 0.1 Basophils Absolute 0.0 Immature Grans Absolute 0.0 COMPREHENSIVE METABOLIC PANEL - Abnormal SODIUM 139 POTASSIUM 3.5 CHLORIDE 107 CARBON DIOXIDE 22 ANION GAP 10 UREA NITROGEN 10 CREATININE 0.65 GLUCOSE 127 (*) CALCIUM 8.6 AST (SGOT) 14 ALT 13 ALKALINE PHOSPHATASE 37 (*) ALBUMIN 3.9 BILIRUBIN, TOTAL 0.3 TOTAL PROTEIN 6.8 eGFR >90.0 COMPLETE URINALYSIS WITH REFLEX TO CULTURE - Abnormal Color, Urine Yellow Clarity, Urine Turbid (*) pH, Urine 6.0 Leukocytes, Urine Negative Nitrite, Urine Negative Protein, Urine 20 (*) Glucose, Urine Normal Bilirubin, Urine Negative Ketones, Urine Trace (*) Urobilinogen, Urine 2 (*) Blood, Urine Negative Volume, Urine 12 mL RBC, Urine 3-5 (*) WBC, Urine 3-5 Squamous Epithelial, Urine 26-50 (*) Bacteria, Urine Moderate (*) Mucus, Urine Moderate (*) Amorphous Crystals, Urine Moderate (*) SPECIFIC GRAVITY OF URINE (NUMERIC) 1.032 (*) Narrative: A specimen with <=10 WBC is not consistent with inflammation. This specimen will not reflex to a urine culture. LIPASE - Normal LIPASE 19 HCG QUANTITATIVE BLOOD HCG QUANTITATIVE <2.5 Narrative: Values in should double every 2 to 3 days for the first 6 weeks. Elevated concentrations of human chorionic gonadotropin (hCG) measured in the first trimester of are observed in normal , but may serve as an indication of chorionic carcinoma, hydatiform mole, or multiple . Decreasing hCG concentrations indicate threatened or missed , recent termination of , ectopic , gestosis or intrauterine . Yanelis- and postmenopausal females may have detectable hCG concentrations (< or = to 14 mIU/mL) due to pituitary production of hCG. Serum follicle-stimulating hormone measurement may aid in ruling-out in this population. Cutoffs of greater than 20 to 45 mIU/mL have been suggested and are method dependent. False-elevations (called phantom human chorionic gonadotropin: hCG) may occur with patients who have human antianimal or heterophilic antibodies. Some specimens may not dilute linearly due to abnormal forms of hCG. Elevated hCG concentrations not associated with are found in patients with other diseases such as tumors of the germ cells, ovaries, bladder, pancreas, stomach, lungs, and liver. This test is not intended to detect or monitor tumors or gestational trophoblastic disease. All other labs were within normal range or not returned as of this dictation. EMERGENCY DEPARTMENT COURSE and DIFFERENTIAL DIAGNOSIS/MDM: Vitals: Vitals: 07/08/25 1515 07/08/25 1801 BP: (!) 144/103 107/73 BP Location: Right arm Patient Position: Sitting Pulse: 105 59 Resp: 20 16 Temp: 37.1 C (98.7 F) TempSrc: Temporal SpO2: 100% 99% Weight: 98.9 kg (218 lb) Height: 1.651 m (5' 5) ED Course as of 07/08/251854 Mon Jul 08, 2025 1542 40-year-old resents emergency room today with diffuse abdominal pain, nausea, vomiting, inability to pass gas. History of multiple hernia repair surgeries, cholecystectomy, appendectomy and several bowel obstructions in the past which had been managed both conservatively and surgically. On exam abdomen distended, diffusely tender worse in the upper quadrants bilaterally. No rebound or guarding. Mildly tachycardic to 105. Will check CBC, CMP, lipase, urinalysis, CT abdomen pelvis. Will give Phenergan, Dilaudid, IV fluid bolus keep n.p.o. and reassess. Differential diagnosis includes bowel obstruction, colitis, enteritis. [BM] 1614 CBC unremarkable. [BM] 1717 CMP, lipase, test unremarkable, urinalysis no evidence of infection. [BM] 1800 1. Postsurgical change and focal fluid within the left pelvis may represent fluid within anastomosis or distended bowel loop versus focal fluid within mesenteric leaf, but is nonspecific. Clinical correlation and follow-up as indicated. 2. No other acute findings or significant interval change. Please see above for further details. [BM] ED Course User Index [BM] Jacqueline Orozco DO Diagnoses as of 07/08/251854 Generalized abdominal pain Nausea and vomiting, unspecified vomiting type Spoke to Dr. Whittington who recommended ED to ED transfer for surgical evaluation by Dr. Pedro and his team given that that is her primary surgeon. Accepted for transfer by Dr. MARKIE Edward emergency department physician. Medications HYDROmorphone (Dilaudid) injection 1 mg (1 mg IntraVENous Given 07/08/25 1604) sodium chloride 0.9 % bolus 1,000 mL (0 mL IntraVENous Stopped 07/08/25 1758) promethazine (Phenergan) injection 25 mg (25 mg IntraMUSCular Given 07/08/25 1603) metoclopramide (Reglan) injection 10 mg (10 mg IntraVENous Given 07/08/25 1707) diphenhydrAMINE (BENADryl) injection 25 mg (25 mg IntraVENous Given 07/08/25 1706) iopamidol (Isovue-370) 76 % injection 75 mL (75 mL IntraVENous Given 07/08/25 1700) morphine injection 4 mg (4 mg IntraVENous Given 07/08/25 1802) REVAL: CRITICAL CARE TIME FINAL IMPRESSION 1. Generalized abdominal pain 2. Nausea and vomiting, unspecified vomiting type DISPOSITION Transfer To [facility] Ed 07/08/2025 06:53:51 PM PATIENT REFERRED TO: No follow-up provider specified. DISCHARGE MEDICATIONS: New Prescriptions No medications on file (Comment: Please note this report has been produced using speech recognition software and may contain errors related to that system including errors in grammar, punctuation, and spelling, as well as words and phrases that may be inappropriate. 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 Partial obstruction of small intestine (HCC) 06/13/2024 [2] Past Surgical History: Procedure Laterality Date APPENDECTOMY BILIOPANCREATIC DIVERSION 10/23/2008 Sherie @ [facility]; janel-en-y duodenojejunostomy for bile reflux CHOLECYSTECTOMY 02/2007 lap COLONOSCOPY N/A 11/29/2023 [facility]; repeat in 11/2033 EXPLORATORY LAPAROTOMY 06/10/2019 Veronica @ [facility]; ex lap, WAI INCISION AND DRAINAGE OF WOUND 08/09/2013 [facility]; I&D of surgical incision of LLQ INCISIONAL HERNIA REPAIR 10/20/2017 [facility]; open primary repair INCISIONAL HERNIA REPAIR 07/12/2018 [facility]; open w/ mesh INCISIONAL HERNIA REPAIR 09/26/2018 [facility]; lap w/ mesh INCISIONAL HERNIA REPAIR 03/11/2020 [facility]; repair w/ mesh excision, mesh replacement ([facility] Mesh w/ Echo), WAI INCISIONAL HERNIA REPAIR 07/19/2015 [facility]; open repair w/ mesh INCISIONAL HERNIA REPAIR 08/07/2024 [facility]; an open recurrent repair w/ mesh, WAI, TAR, removal of infarcted cecal epiploic appendage PANNICULECTOMY (HISTORICAL) 08/07/2024 [facility] SOFT TISSUE MASS EXCISION 08/02/2013 [facility]; STM excision of LLQ TONSILLECTOMY [3] Family History Problem Relation Name Age of Onset Hypertension Father Diabetes Father [4] Social History Socioeconomic History Marital status: Tobacco Use Smoking status: Former Current packs/day: 0.00 Types: Cigarettes Quit date: 2020 Years since quittin.7 Smokeless tobacco: Never Tobacco comments: Patient states she quit smoking in 2020, no history of vaping or smokeless tobacco. Smoking cessation counseling not indicated. Vaping Use Vaping status: Never Used Substance and Sexual Activity Alcohol use: Not Currently Drug use: Yes Frequency: 2.0 times per week Types: Marijuana Comment: edibles Sexual activity: Not Currently Social Drivers of Health Financial Resource Strain: Low Risk (05/24/2025) Overall Financial Resource Strain (CARDIA) Difficulty of Paying Living Expenses: Not hard at all Food Insecurity: No Food Insecurity (05/24/2025) Hunger Vital Sign Worried About Running Out of Food in the Last Year: Never true Ran Out of Food in the Last Year: Never true Transportation Needs: No Transportation Needs (05/24/2025) PRAPARE - Transportation Lack of Transportation (Medical): No Lack of Transportation (Non-Medical): No Physical Activity: Insufficiently Active (05/24/2025) Exercise Vital Sign Days of Exercise per Week: 2 days Minutes of Exercise per Session: 30 min Stress: Stress Concern Present (04/24/2024) [employer] [place] [employer] - Occupational Stress Questionnaire Feeling of Stress : Very much Social Connections: Moderately Integrated (04/24/2024) Social Connection and Isolation Panel [NHANES] Frequency of Communication with Friends and Family: Twice a week Frequency of Social Gatherings with Friends and Family: Once a week Attends Adventism Services: More than 4 times per year Active Member of Clubs or Organizations: No Attends Club or Organization Meetings: More than 4 times per year Marital Status: Intimate Partner Violence: Not At Risk (05/24/2025) Humiliation, Afraid, Rape, and Kick questionnaire Fear of Current or Ex-Partner: No Emotionally Abused: No Physically Abused: No Sexually Abused: No Housing Stability: Unknown (05/24/2025) Housing Stability Vital Sign Unable to Pay for Housing in the Last Year: No Homeless in the Last Year: No Jacqueline Orozco DO 07/08/25 6366 [facility] 07-08-2025 Physician Emergency department Note EMERGENCY DEPARTMENT ENCOUNTER Pt Name: Mel Wall Birthdate 1985 Date of evaluation: 07/08/2025 ED Provider: Will Granado DO CHIEF COMPLAINT Chief Complaint Patient presents with Abdominal Pain Pt states she is concerned she has a bowel obstruction, pt states she has a hx of bowel obstructions and this pain is similar but worse than the previous. Pt states she had a small bowel movement yesterday, unable to pass gas today. Pt also reports vomiting. HISTORY OF PRESENT ILLNESS (Location/Symptom, Timing/Onset, Context/Setting, Quality, Duration, Modifying Factors, Severity) Note limiting factors. I wore appropriate PPE for the entirety of this encounter. HPI Mel Wall is a 40 y.o. is a patient of Dr. Taylor with with history of multiple SBO's who presents to the emergency department with abdominal pain, nausea, vomiting since yesterday. Of note she has also not had any bowel function since yesterday either. She was evaluated at [facility] ED and sent here due to CTAP concerning for possible SBO. Nursing Notes were reviewed. Limitations to history: None Outside historians: None REVIEW OF SYSTEMS Review of Systems Gastrointestinal: Positive for abdominal pain, nausea and vomiting. Pertinent positives and negatives as per HPI. PAST MEDICAL HISTORY Medical History[1] SURGICAL HISTORY Surgical History[2] CURRENT MEDICATIONS Previous Medications CYCLOBENZAPRINE (FLEXERIL) 10 MG TABLET FLUOXETINE (PROZAC) 20 MG CAPSULE Take 20 mg by mouth daily. LIDOCAINE (LIDODERM) 5 % PATCH Place 1 patch on the skin daily. OXYCODONE (ROXICODONE) 5 MG IMMEDIATE RELEASE TABLET Take 5 mg by mouth every 6 hours as needed. PROMETHAZINE (PHENERGAN) 12.5 MG TABLET Take 12.5 mg by mouth every 8 hours as needed. ALLERGIES Ketorolac, Ondansetron, and Seasonal FAMILY HISTORY Family History[3] SOCIAL HISTORY Social History[4] SCREENINGS Tommy Coma Scale Best Eye Response: Spontaneous Best Verbal Response: Oriented Best Motor Response: Follows commands Tommy Coma Scale Score: 15 PHYSICAL EXAM ED Triage Vitals [07/08/25 1515] Temp Heart Rate Resp BP 37.1 C (98.7 F) 105 20 (!) 144/103 SpO2 Temp Source Heart Rate Source Patient Position 100 % Temporal Monitor Sitting BP Location FiO2 (%) Right arm -- Physical Exam Vitals and nursing note reviewed. Constitutional: General: She is in acute distress. Appearance: She is well-developed and normal weight. She is not ill-appearing, toxic-appearing or diaphoretic. HENT: Head: Normocephalic and atraumatic. Cardiovascular: Rate and Rhythm: Normal rate. Pulmonary: Effort: Pulmonary effort is normal. Abdominal: General: Abdomen is flat. Tenderness: There is abdominal tenderness. Neurological: General: No focal deficit present. Mental Status: She is alert. Psychiatric: Mood and Affect: Mood normal. DIAGNOSTIC RESULTS RADIOLOGY (Per Emergency Physician): Interpretation per the Radiologist below, if available at the time of this note: CT abdomen pelvis w contrast Final Result 1. Postsurgical change and focal fluid within the left pelvis may represent fluid within anastomosis or distended bowel loop versus focal fluid within mesenteric leaf, but is nonspecific. Clinical correlation and follow-up as indicated. 2. No other acute findings or significant interval change. Please see above for further details. Report Dictated on Electronically Signed By: Sunil Thompson MD Electronically Signed Date/Time: 07/08/2025 5:40 PM EDT LABS: Labs Reviewed CBC WITH AUTO DIFFERENTIAL - Abnormal Result Value Auto WBC 8.1 RBC 4.15 Hemoglobin 12.8 Hematocrit 37.7 MCV 90.8 MCH 30.8 MCHC 34.0 RDW 12.2 Platelets 257 MPV 8.8 (*) nRBC 0.0 Neutrophils Relative 70.6 Lymphocytes Relative 22.7 Monocytes Relative 5.0 Eosinophils Relative 1.1 Basophils Relative 0.4 Immature Grans % 0.2 Neutrophils Absolute 5.7 Lymphocytes Absolute 1.8 Monocytes Absolute 0.4 Eosinophils Absolute 0.1 Basophils Absolute 0.0 Immature Grans Absolute 0.0 COMPREHENSIVE METABOLIC PANEL - Abnormal SODIUM 139 POTASSIUM 3.5 CHLORIDE 107 CARBON DIOXIDE 22 ANION GAP 10 UREA NITROGEN 10 CREATININE 0.65 GLUCOSE 127 (*) CALCIUM 8.6 AST (SGOT) 14 ALT 13 ALKALINE PHOSPHATASE 37 (*) ALBUMIN 3.9 BILIRUBIN, TOTAL 0.3 TOTAL PROTEIN 6.8 eGFR >90.0 COMPLETE URINALYSIS WITH REFLEX TO CULTURE - Abnormal Color, Urine Yellow Clarity, Urine Turbid (*) pH, Urine 6.0 Leukocytes, Urine Negative Nitrite, Urine Negative Protein, Urine 20 (*) Glucose, Urine Normal Bilirubin, Urine Negative Ketones, Urine Trace (*) Urobilinogen, Urine 2 (*) Blood, Urine Negative Volume, Urine 12 mL RBC, Urine 3-5 (*) WBC, Urine 3-5 Squamous Epithelial, Urine 26-50 (*) Bacteria, Urine Moderate (*) Mucus, Urine Moderate (*) Amorphous Crystals, Urine Moderate (*) SPECIFIC GRAVITY OF URINE (NUMERIC) 1.032 (*) Narrative: A specimen with <=10 WBC is not consistent with inflammation. This specimen will not reflex to a urine culture. LIPASE - Normal LIPASE 19 LACTIC ACID WITH REFLEX - Normal LACTIC ACID 1.9 HCG QUANTITATIVE BLOOD HCG QUANTITATIVE <2.5 Narrative: Values in should double every 2 to 3 days for the first 6 weeks. Elevated concentrations of human chorionic gonadotropin (hCG) measured in the first trimester of are observed in normal , but may serve as an indication of chorionic carcinoma, hydatiform mole, or multiple . Decreasing hCG concentrations indicate threatened or missed , recent termination of , ectopic , gestosis or intrauterine . Yanelis- and postmenopausal females may have detectable hCG concentrations (< or = to 14 mIU/mL) due to pituitary production of hCG. Serum follicle-stimulating hormone measurement may aid in ruling-out in this population. Cutoffs of greater than 20 to 45 mIU/mL have been suggested and are method dependent. False-elevations (called phantom human chorionic gonadotropin: hCG) may occur with patients who have human antianimal or heterophilic antibodies. Some specimens may not dilute linearly due to abnormal forms of hCG. Elevated hCG concentrations not associated with are found in patients with other diseases such as tumors of the germ cells, ovaries, bladder, pancreas, stomach, lungs, and liver. This test is not intended to detect or monitor tumors or gestational trophoblastic disease. All other labs were within normal range or not returned as of this dictation. EMERGENCY DEPARTMENT COURSE and DIFFERENTIAL DIAGNOSIS/MDM: Vitals: Vitals: 07/08/25 1801 07/08/25 1959 07/08/25 2101 07/08/25 2133 BP: 107/73 124/72 122/77 137/81 BP Location: Patient Position: Pulse: 59 62 72 90 Resp: 16 18 20 18 Temp: TempSrc: SpO2: 99% 100% 98% 98% Weight: Height: 40 y.o. is a patient of Dr. Taylor with with history of multiple SBO's who presents to the emergency department with abdominal pain, nausea, vomiting since yesterday. Upon presentation to the emergency room patient is afebrile helically stable. Patient given additional dose of morphine for pain control. Furthermore I did add on a lactic which was 1.9. Discussed case with surgery who evaluated the bedside. Patient discussed with and signed out to Dr. Ramirez pending the surgery recs. ED Course as of 07/08/25 233TueJul 08, 2025 1542 40-year-old resents emergency room today with diffuse abdominal pain, nausea, vomiting, inability to pass gas. History of multiple hernia repair surgeries, cholecystectomy, appendectomy and several bowel obstructions in the past which had been managed both conservatively and surgically. On exam abdomen distended, diffusely tender worse in the upper quadrants bilaterally. No rebound or guarding. Mildly tachycardic to 105. Will check CBC, CMP, lipase, urinalysis, CT abdomen pelvis. Will give Phenergan, Dilaudid, IV fluid bolus keep n.p.o. and reassess. Differential diagnosis includes bowel obstruction, colitis, enteritis. [BM] 1614 CBC unremarkable. [BM] 1717 CMP, lipase, test unremarkable, urinalysis no evidence of infection. [BM] 1800 1. Postsurgical change and focal fluid within the left pelvis may represent fluid within anastomosis or distended bowel loop versus focal fluid within mesenteric leaf, but is nonspecific. Clinical correlation and follow-up as indicated. 2. No other acute findings or significant interval change. Please see above for further details. [BM] ED Course User Index [BM] Jacqueline Orozco DO Diagnoses as of 07/08/25 2339 Generalized abdominal pain Nausea and vomiting, unspecified vomiting type ED Medications managed: Medications HYDROmorphone (Dilaudid) injection 1 mg (1 mg IntraVENous Given 07/08/25 1604) sodium chloride 0.9 % bolus 1,000 mL (0 mL IntraVENous Stopped 07/08/25 1758) promethazine (Phenergan) injection 25 mg (25 mg IntraMUSCular Given 07/08/25 1603) metoclopramide (Reglan) injection 10 mg (10 mg IntraVENous Given 07/08/25 1707) diphenhydrAMINE (BENADryl) injection 25 mg (25 mg IntraVENous Given 07/08/25 170) iopamidol (Isovue-370) 76 % injection 75 mL (75 mL IntraVENous Given 07/08/25 170) morphine injection 4 mg (4 mg IntraVENous Given 07/08/25 180) promethazine (Phenergan) injection 25 mg (25 mg IntraMUSCular Given 07/08/25 191) morphine injection 4 mg (4 mg IntraVENous Given 07/08/251909) HYDROmorphone (Dilaudid) injection 0.5 mg (0.5 mg IntraVENous Given 07/08/252045) HYDROmorphone (Dilaudid) injection 0.5 mg (0.5 mg IntraVENous Given 07/08/252150) PROCEDURES: Unless otherwise noted below, none Procedures FINAL IMPRESSION 1. Generalized abdominal pain 2. Nausea and vomiting, unspecified vomiting type DISPOSITION 07/08/2025 09:46:08 PM PATIENT REFERRED TO: No follow-up provider specified. DISCHARGE MEDICATIONS: New Prescriptions No medications on file (Comment: Please note this report has been produced using speech recognition software and may contain errors related to that system including errors in grammar, punctuation, and spelling, as well as words and phrases that may be inappropriate. 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 Partial obstruction of small intestine (HCC) 06/13/2024 [2] Past Surgical History: Procedure Laterality Date APPENDECTOMY BILIOPANCREATIC DIVERSION 10/23/2008 Sherie @ [facility]; janel-en-y duodenojejunostomy for bile reflux CHOLECYSTECTOMY 02/2007 lap COLONOSCOPY N/A 11/29/2023 [facility]; repeat in 11/2033 EXPLORATORY LAPAROTOMY 06/10/2019 Veronica @ [facility]; ex lap, WAI INCISION AND DRAINAGE OF WOUND 08/09/2013 [facility]; I&D of surgical incision of LLQ INCISIONAL HERNIA REPAIR 10/20/2017 [facility]; open primary repair INCISIONAL HERNIA REPAIR 07/12/2018 [facility]; open w/ mesh INCISIONAL HERNIA REPAIR 09/26/2018 [facility]; lap w/ mesh INCISIONAL HERNIA REPAIR 03/11/2020 [facility]; repair w/ mesh excision, mesh replacement ([employer] St Mesh w/ Echo), WAI INCISIONAL HERNIA REPAIR 07/19/2015 [facility]; open repair w/ mesh INCISIONAL HERNIA REPAIR 08/07/2024 [facility]; an open recurrent repair w/ mesh, WAI, TAR, removal of infarcted cecal epiploic appendage PANNICULECTOMY (HISTORICAL) 08/07/2024 [facility] SOFT TISSUE MASS EXCISION 08/02/2013 [facility]; STM excision of LLQ TONSILLECTOMY [3] Family History Problem Relation Name Age of Onset Hypertension Father Diabetes Father [4] Social History Socioeconomic History Marital status: Tobacco Use Smoking status: Former Current packs/day: 0.00 Types: Cigarettes Quit date: 2020 Years since quittin.7 Smokeless tobacco: Never Tobacco comments: Patient states she quit smoking in 2020, no history of vaping or smokeless tobacco. Smoking cessation counseling not indicated. Vaping Use Vaping status: Never Used Substance and Sexual Activity Alcohol use: Not Currently Drug use: Yes Frequency: 2.0 times per week Types: Marijuana Comment: edibles Sexual activity: Not Currently Social Drivers of Health Financial Resource Strain: Low Risk (05/24/2025) Overall Financial Resource Strain (CARDIA) Difficulty of Paying Living Expenses: Not hard at all Food Insecurity: No Food Insecurity (05/24/2025) Hunger Vital Sign Worried About Running Out of Food in the Last Year: Never true Ran Out of Food in the Last Year: Never true Transportation Needs: No Transportation Needs (05/24/2025) PRAPARE - Transportation Lack of Transportation (Medical): No Lack of Transportation (Non-Medical): No Physical Activity: Insufficiently Active (05/24/2025) Exercise Vital Sign Days of Exercise per Week: 2 days Minutes of Exercise per Session: 30 min Stress: Stress Concern Present (04/24/2024) [employer] [place] [employer] - Occupational Stress Questionnaire Feeling of Stress : Very much Social Connections: Moderately Integrated (04/24/2024) Social Connection and Isolation Panel [NHANES] Frequency of Communication with Friends and Family: Twice a week Frequency of Social Gatherings with Friends and Family: Once a week Attends Adventism Services: More than 4 times per year Active Member of Clubs or Organizations: No Attends Club or Organization Meetings: More than 4 times per year Marital Status: Intimate Partner Violence: Not At Risk (05/24/2025) Humiliation, Afraid, Rape, and Kick questionnaire Fear of Current or Ex-Partner: No Emotionally Abused: No Physically Abused: No Sexually Abused: No Housing Stability: Unknown (05/24/2025) Housing Stability Vital Sign Unable to Pay for Housing in the Last Year: No Homeless in the Last Year: No Will Granado DO Resident 07/08/25 [id number] Cosigned by Corky Plummer MD at 07/08/2025 11:48 PM EDT [facility] Phone: 07-08-2025 Physician Emergency department Note Emergency Department Encounter [facility] EMERGENCY DEPT Patient: Mel Wall : 1985 Date of Evaluation: 07/08/2025 ED Supervising Physician: Corky Plummer MD I personally saw Mel Wall and made/approved the management plan and take responsibility for the patient management. In brief, Mel Wall is a 40 y.o. that presents to the emergency department for evaluation of a bowel obstruction. Patient has a history of small bowel obstructions in the past. Patient has not had a bowel movement or flatus since yesterday and feels nauseated and abdominal pain. Patient was at [facility] emergency department and had imaging there concerning for small bowel obstruction transferred here to see surgery. Focused exam: General appearance: Well-appearing, no acute distress. Psych: Awake alert and oriented 3. Pleasant and cooperative. Skin: Warm and dry. Neck: Supple. Cardiovascular: Regular rate and rhythm. Lungs: no accessory muscle use, tachypnea, or retractions. Abdomen: Soft, mid abdominal tenderness, and nondistended, no rebound, rigidity, or guarding, positive bowel sounds 4 quadrants. Brief ED course/MDM: Patient presents emergency department for evaluation of small bowel obstruction. Patient transferred here from [facility] emergency department for surgery consultation. Dr. Coles remains industrial equipment wirer of record. EMERGENCY DEPARTMENT COURSE and DIFFERENTIAL DIAGNOSIS/MDM: Vitals: Vitals: 07/08/25 1801 07/08/25 1959 07/08/25210007/08/25 213 BP: 107/73 124/72 122/77 137/81 BP Location: Patient Position: Pulse: 59 62 72 90 Resp: 16 18 20 18 Temp: TempSrc: SpO2: 99% 100% 98% 98% Weight: Height: All diagnostic, treatment, and disposition decisions were made by myself in conjunction with the CASANDRA/Resident. I also supervised solares portions of any procedures performed by the CASANDRA/Resident. For all further details of the patient's emergency department visit, please see their documentation. This will serve as my supervisory note and shared attestation. I did perform a substantiative portion of the visit including all aspects of the medical decision making. (Please note that portions of this note may have been completed with a voice recognition program. Efforts were made to edit the dictations but occasionally words are mis-transcribed.) Corky Plummer MD [employer] Corky Plummer MD 07/08/25 [facility] Phone: 07-08-2025 Physician Emergency department Note Emergency Department Encounter Location: [facility] EMERGENCY DEPT Patient: Mel Wall : 1985 Date of evaluation: 07/08/2025 ED Provider: Sher Gilstorf, DO Time received sign-out: 2330 Mel Wall was checked out to me by Dr Granado. Please see his/her initial documentation for details of the patient's initial ED presentation, physical exam and completed studies. I did perform a substantive portion of the visit including all aspects of the Medical Decision Making. In brief, Mel Wall is a 40 y.o. female that presented to the emergency department with worsening abd pain since yesterday, N/V, no bowel function since yesterday. History of Janel-n-y. Seen @ [facility] with concerning findings of fluid in her anastamosis Surg to see - DC Home after PO or med admit. I have reviewed and interpreted all of the currently available lab results and diagnostics from this visit: Results for orders placed or performed during the hospital encounter of 07/08/25 CBC auto differential Collection Time: 07/08/25 3:58 PM Result Value Ref Range Auto WBC 8.1 3.6 - 10.7 10*3/uL RBC 4.15 3.80 - 5.20 10*6/uL Hemoglobin 12.8 11.7 - 16.0 g/dL Hematocrit 37.7 35.0 - 47.0 % MCV 90.8 77.0 - 99.0 fL MCH 30.8 26.0 - 34.0 pg MCHC 34.0 30.5 - 36.0 % RDW 12.2 11.5 - 15.0 % Platelets 257 140 - 440 10*3/uL MPV 8.8 (L) 9.0 - 12.7 fL nRBC 0.0 0.0 - 2.0 /100 WBCs Neutrophils Relative 70.6 38.0 - 82.0 % Lymphocytes Relative 22.7 15.0 - 45.0 % Monocytes Relative 5.0 5.0 - 13.0 % Eosinophils Relative 1.1 0.0 - 6.0 % Basophils Relative 0.4 0.0 - 2.0 % Immature Grans % 0.2 0.0 - 2.0 % Neutrophils Absolute 5.7 1.8 - 7.5 10*3/uL Lymphocytes Absolute 1.8 1.0 - 4.3 10*3/uL Monocytes Absolute 0.4 0.0 - 0.9 10*3/uL Eosinophils Absolute 0.1 0.0 - 0.5 10*3/uL Basophils Absolute 0.0 0.0 - 0.2 10*3/uL Immature Grans Absolute 0.0 <0.1 10*3/uL Comprehensive metabolic panel Collection Time: 07/08/25 3:58 PM Result Value Ref Range SODIUM 139 136 - 145 mmol/L POTASSIUM 3.5 3.5 - 5.1 mmol/L CHLORIDE 107 98 - 107 mmol/L CARBON DIOXIDE 22 22 - 29 mmol/L ANION GAP 10 3 - 13 mmol/L UREA NITROGEN 10 8 - 21 mg/dL CREATININE 0.65 0.57 - 1.11 mg/dL GLUCOSE 127 (H) 74 - 100 mg/dL CALCIUM 8.6 8.4 - 10.2 mg/dL AST (SGOT) 14 <34 U/L ALT 13 <30 U/L ALKALINE PHOSPHATASE 37 (L) 40 - 150 U/L ALBUMIN 3.9 3.5 - 5.0 g/dL BILIRUBIN, TOTAL 0.3 <1.2 mg/dL TOTAL PROTEIN 6.8 6.4 - 8.3 g/dL eGFR >90.0 >60.0 mL/min/1.73m*2 Lipase Collection Time: 07/08/25 3:58 PM Result Value Ref Range LIPASE 19 <55 U/L hCG, quantitative, Collection Time: 07/08/25 3:58 PM Result Value Ref Range HCG QUANTITATIVE <2.5 Females <5 mIU/mL Urinalysis Complete with reflex to Culture Collection Time: 07/08/25 4:06 PM Result Value Ref Range Color, Urine Yellow Lt. Yellow Clarity, Urine Turbid (A) Clear pH, Urine 6.0 5.0 - 8.0 pH Leukocytes, Urine Negative Negative [place]/uL Nitrite, Urine Negative Negative Protein, Urine 20 (A) Negative mg/dL Glucose, Urine Normal Normal (<70) mg/dL Bilirubin, Urine Negative Negative mg/dL Ketones, Urine Trace (A) Negative mg/dL Urobilinogen, Urine 2 (A) Normal (0-1) mg/dL Blood, Urine Negative Negative mg/dL Volume, Urine 12 mL RBC, Urine 3-5 (A) 0 - 2 /HPF WBC, Urine 3-5 0 - 5 /HPF Squamous Epithelial, Urine 26-50 (A) 3 - 5 /HPF Bacteria, Urine Moderate (A) Negative /HPF Mucus, Urine Moderate (A) Negative /LPF Amorphous Crystals, Urine Moderate (A) Negative /HPF SPECIFIC GRAVITY OF URINE (NUMERIC) 1.032 (H) 1.005 - 1.030 Lactic acid with reflex Collection Time: 07/08/25 9:50 PM Result Value Ref Range LACTIC ACID 1.9 0.5 - 2.2 mmol/L CT abdomen pelvis w contrast Final Result 1. Postsurgical change and focal fluid within the left pelvis may represent fluid within anastomosis or distended bowel loop versus focal fluid within mesenteric leaf, but is nonspecific. Clinical correlation and follow-up as indicated. 2. No other acute findings or significant interval change. Please see above for further details. Report Dictated on Electronically Signed By: Sunil Thompson MD Electronically Signed Date/Time: 07/08/2025 5:40 PM EDT [place] upper GI single contrast w small bowel follow through (Results Pending) Final ED Course and MDM: In brief, Mel Wall is a 40 y.o. female whose care was signed out to me by the outgoing provider. In brief, reassessed the patient and stated that they wanted the patient medically admitted with them to follow to monitor abdominal pain, ability tolerate p.o. intake and nausea. Patient discussed with the hospital service the patient was admitted in stable condition. She did have recurrent abdominal pain which a ketamine trial was ordered. Is concerned at this time that if we continue give opioids when the patient is not have any bowel movements and they could worsen her symptoms. Medications ketamine 24.5 mg in sodium chloride 0.9 % 50 mL ivpb (has no administration in time range) acetaminophen (Tylenol) tablet 650 mg (has no administration in time range) Or acetaminophen (Tylenol) suppository 650 mg (has no administration in time range) polyethylene glycol (PEG) 3350 (Miralax) packet 17 g (has no administration in time range) influenza vaccine tiss-cult subunt (Flucelvax) STANDARD-DOSE injection 0.5 mL (has no administration in time range) enoxaparin (Lovenox) syringe 40 mg (has no administration in time range) lactated Ringer's (LR) infusion (has no administration in time range) HYDROcodone-acetaminophen ([place]) 5-325 MG per tablet 1 tablet (has no administration in time range) oxyCODONE-acetaminophen (Percocet) 5-325 MG per tablet 1 tablet (has no administration in time range) Or oxyCODONE-acetaminophen (Percocet) 5-325 MG per tablet 2 tablet (has no administration in time range) prochlorperazine (Compazine) tablet 10 mg (has no administration in time range) Or prochlorperazine (Compazine) injection 10 mg (has no administration in time range) Or prochlorperazine (Compazine) suppository 25 mg (has no administration in time range) prochlorperazine (Compazine) tablet 10 mg (has no administration in time range) Or prochlorperazine (Compazine) injection 10 mg (has no administration in time range) Or prochlorperazine (Compazine) suppository 25 mg (has no administration in time range) naloxone (Narcan) injection 0.4 mg (has no administration in time range) HYDROmorphone (Dilaudid) injection 1 mg (1 mg IntraVENous Given 07/08/25 1604) sodium chloride 0.9 % bolus 1,000 mL (0 mL IntraVENous Stopped 07/08/25 175) promethazine (Phenergan) injection 25 mg (25 mg IntraMUSCular Given 07/08/25 1603) metoclopramide (Reglan) injection 10 mg (10 mg IntraVENous Given 07/08/25 1707) diphenhydrAMINE (BENADryl) injection 25 mg (25 mg IntraVENous Given 07/08/25 170) iopamidol (Isovue-370) 76 % injection 75 mL (75 mL IntraVENous Given 07/08/25 170) morphine injection 4 mg (4 mg IntraVENous Given 07/08/25 180) promethazine (Phenergan) injection 25 mg (25 mg IntraMUSCular Given 07/08/251909) morphine injection 4 mg (4 mg IntraVENous Given 07/08/251909) HYDROmorphone (Dilaudid) injection 0.5 mg (0.5 mg IntraVENous Given 07/08/252045) HYDROmorphone (Dilaudid) injection 0.5 mg (0.5 mg IntraVENous Given 07/08/252150) HYDROmorphone (Dilaudid) injection 0.5 mg (0.5 mg IntraVENous Given 07/09/25 0033) Final Impression 1. Generalized abdominal pain 2. Nausea and vomiting, unspecified vomiting type Sher Ramirez DO [employer] Sher Ramirez DO Resident 07/09/25 0318 Cosigned by Corky Plummer MD at 07/09/2025 4:05 PM EDT [facility] 06-24-2025 Note Addended by: KIRK DIAZ on: 06/24/2025 02:56 PM Modules accepted: Orders [facility] 06-24-2025 Miscellaneous Notes Addended by: NANCI DIAZ on: 06/24/2025 02:56 PM Modules accepted: Orders PDMP checked and appropriate. Last Phentermine given /filled 08/15/2024. Will provide Phentermine for 3 months to assist with obtaining weight loss goal to have needed surgery. MyChart sent to patient stating the above. documented in this encounter [facility] 06-24-2025 Telephone encounter Note PDMP checked and appropriate. Last Phentermine given /filled 08/15/2024. Will provide Phentermine for 3 months to assist with obtaining weight loss goal to have needed surgery. MyChart sent to patient stating the above. [facility] 06-20-2025 Telephone encounter Note She has to stop using THC for us to continue this medication. Will repeat drug screen must be negative for us to continue the medication. Otherwise we wean her off the medication and stop it altogether. [facility] 06-20-2025 Miscellaneous Notes She has to stop using THC for us to continue this medication. Will repeat drug screen must be negative for us to continue the medication. Otherwise we wean her off the medication and stop it altogether. Patient phones requesting refills as follows: Requested Prescriptions Pending Prescriptions Disp Refills oxyCODONE IR (ROXICODONE) 5 mg immediate release tablet 21 tablet 0 Sig: Take 1 tablet by mouth every 6 hours as needed for pain for up to 7 days. Last UDS: No specialty comments available. [facility] Urine Drug Screen Summary Report Date Value Ref Range Status 06/12/2025 FINAL Final Comment: Cannabinoids, MS, Ur RFX ToxAssure Flex 23, Ur Test Result Flag Units Drug Present Carboxy-THC 687 ng/mg creat Carboxy-THC is a metabolite of tetrahydrocannabinol (THC). Source of THC is most commonly herbal marijuana or marijuana-based products, but THC is also present in a scheduled prescription medication. Trace amounts of THC can be present in hemp and cannabidiol (CBD) products. This test is not intended to distinguish between hlocc-2-masffqrskuwqioitxauu, the predominant form of THC in most herbal or marijuana-based products, and ixmnt-4-oelyvfgzyliglqabvlnq. Test Result Flag Units Ref Range Creatinine 129 mg/dL >=20 Declared Medications: Medication list was not provided. For clinical consultation, please call . [facility] Urine Drug Screen and Benzo Confirm Urine Panel: No results found for: UQCANN, UQBNZL, GIH8MJK, UQAMPH, UQMAMP, UQBUPRE, UQNORBUP, UQMTHD, UQEDDP, UQTRAM, UQDTRM, UQFNTL, UQNFTL, UQCODE, UQMORP, UQDCDN, UQHCOD, UQOXYC, UQHMOR, UQOXYM, UQCREA, UQPH, UQSPGR, UQOXID, UQSPQ Last Opioid agreement effective date: 06/12/2025 Recent Visits Date Type Provider Dept 06/12/25 Office Visit Heath Flores MD [facility] 08/21/24 Appointment Nanci Diaz APRN.[facility] 05/04/24 Office Visit Nanci Diaz APRN.CNP [facility] Showing recent visits within past 540 days with a meds authorizing provider and meeting all other requirements Future Appointments Date Type Provider Dept 07/10/25 Appointment Heath Flores MD [facility] Showing future appointments within next 150 days with a meds authorizing provider and meeting all other requirements Please review and advise. Markus Wisdom MA documented in this encounter [facility] 06-20-2025 Telephone encounter Note Patient phones requesting refills as follows: Requested Prescriptions Pending Prescriptions Disp Refills oxyCODONE IR (ROXICODONE) 5 mg immediate release tablet 21 tablet 0 Sig: Take 1 tablet by mouth every 6 hours as needed for pain for up to 7 days. Last UDS: No specialty comments available. [facility] Urine Drug Screen Summary Report Date Value Ref Range Status 06/12/2025 FINAL Final Comment: Cannabinoids, MS, Ur RFX ToxAssure Flex 23, Ur Test Result Flag Units Drug Present Carboxy-THC 687 ng/mg creat Carboxy-THC is a metabolite of tetrahydrocannabinol (THC). Source of THC is most commonly herbal marijuana or marijuana-based products, but THC is also present in a scheduled prescription medication. Trace amounts of THC can be present in hemp and cannabidiol (CBD) products. This test is not intended to distinguish between xngtc-4-uouzjlpxdyxfmgxadqqj, the predominant form of THC in most herbal or marijuana-based products, and kwpsw-0-dqgktxvmqfgpuuvbhhma. Test Result Flag Units Ref Range Creatinine 129 mg/dL >=20 Declared Medications: Medication list was not provided. For clinical consultation, please call . [facility] Urine Drug Screen and Benzo Confirm Urine Panel: No results found for: UQCANN, UQBNZL, [id number], UQAMPH, UQMAMP, UQBUPRE, UQNORBUP, UQMTHD, UQEDDP, UQTRAM, UQDTRM, UQFNTL, UQNFTL, UQCODE, UQMORP, UQDCDN, UQHCOD, UQOXYC, UQHMOR, UQOXYM, UQCREA, UQPH, UQSPGR, UQOXID, UQSPQ Last Opioid agreement effective date: 06/12/2025 Recent Visits Date Type Provider Dept 06/12/25 Office Visit Heath Flores MD [facility] 08/21/24 Appointment Nanci Diaz APRN.WIRE INSERTER [facility] 05/04/24 Office Visit Nanci Diaz APRN.WIRE INSERTER [facility] Showing recent visits within past 540 days with a meds authorizing provider and meeting all other requirements Future Appointments Date Type Provider Dept 07/10/25 Appointment Heath Flores MD [facility] Showing future appointments within next 150 days with a meds authorizing provider and meeting all other requirements Please review and advise. Markus Wisdom MA [facility] 06-14-2025 History of Present illness Narrative Images from the original note were not included. [facility] Lap[facility]oscopic [facility] Patient Name: Mel Wall Date: 06/14/25 HPI: Mel Wall is a 39 y.o. female who presents with a known recurrent incisional hernia. Patient has been hospitalized several times over the past few months for intractable abdominal pain. She presents today for outpatient follow-up. Patient states that she continues to have pain every day. She was recently seen by [facility]'s pain management who has started her on oxycodone and cyclobenzaprine as needed for muscle spasms. She states that this is helping substantially control her pain. She denies nausea, vomiting, fevers, chills, sweats, shortness of breath or chest pain. Patient states that she is able to perform her ADLs. Notes reviewed: 06/12 Andriy Data reviewed: CT 05/20/25 personally interpreted, patient appears to have a recurrent multifocal incisional hernia. The defect is wide. Medical History[1] Surgical History[2] Family History[3] Allergies[4] Current Medications[5] Social History Socioeconomic History Marital status: Spouse name: Not on file Number of children: Not on file Years of education: Not on file Highest education level: Not on file Occupational History Not on file Tobacco Use Smoking status: Former Current packs/day: 0.00 Types: Cigarettes Quit date: 2020 Years since quittin.6 Smokeless tobacco: Never Tobacco comments: Patient states she quit smoking in 2020, no history of vaping or smokeless tobacco. Smoking cessation counseling not indicated. Vaping Use Vaping status: Never Used Substance and Sexual Activity Alcohol use: Not Currently Drug use: Yes Frequency: 2.0 times per week Types: Marijuana Comment: edibles Sexual activity: Not Currently Other Topics Concern Not on file Social History Narrative Not on file Social Drivers of Health Financial Resource Strain: Low Risk (05/24/2025) Overall Financial Resource Strain (CARDIA) Difficulty of Paying Living Expenses: Not hard at all Food Insecurity: No Food Insecurity (05/24/2025) Hunger Vital Sign Worried About Running Out of Food in the Last Year: Never true Ran Out of Food in the Last Year: Never true Transportation Needs: No Transportation Needs (05/24/2025) PRAPARE - Transportation Lack of Transportation (Medical): No Lack of Transportation (Non-Medical): No Physical Activity: Insufficiently Active (05/24/2025) Exercise Vital Sign Days of Exercise per Week: 2 days Minutes of Exercise per Session: 30 min Stress: Stress Concern Present (04/24/2024) [employer] [place] [employer] - Occupational Stress Questionnaire Feeling of Stress : Very much Social Connections: Moderately Integrated (04/24/2024) Social Connection and Isolation Panel [NHANES] Frequency of Communication with Friends and Family: Twice a week Frequency of Social Gatherings with Friends and Family: Once a week Attends [employer] Services: More than 4 times per year Active Member of Clubs or Organizations: No Attends Club or Organization Meetings: More than 4 times per year Marital Status: Intimate Partner Violence: Not At Risk (05/24/2025) Humiliation, Afraid, Rape, and Kick questionnaire Fear of Current or Ex-Partner: No Emotionally Abused: No Physically Abused: No Sexually Abused: No Housing Stability: Unknown (05/24/2025) Housing Stability Vital Sign Unable to Pay for Housing in the Last Year: No Number of Times Moved in the Last Year: Not on file Homeless in the Last Year: No ROS: General: negative for - chills, fatigue, fever or malaise Gastrointestinal: negative for - change in bowel habits, hemoptysis, hematemesis, hematochezia, dysphagia, nausea, vomiting, diarrhea, constipation, weight loss Physical Examination: BP 131/85 (BP Location: Right arm, Patient Position: Sitting, BP Cuff Size: Adult) Pulse 82 Ht 5' 5 (1.651 m) Wt 229 lb (104 kg) SpO2 100% BMI 38.11 kg/m She stands Height: 5' 5 (165.1 cm) tall with a weight of Weight: 229 lb (104 kg), resulting in a BMI of Body mass index is 38.11 kg/m . General: The patient is awake, alert, and oriented, and is in no apparent distress; normal affect Respiratory: Normal effort, no gross abnormal breath sounds Abdomen: Appropriate girth/obese, non-distended, scars consistent with prior surgeries, soft, no masses or hepatosplenomegaly Hernia: Large, multifocal and completely reducible incisional hernia Extremities: Ambulatory without assistance, no obvious deformities Skin: Warm, dry, intact; no obvious lesions or discoloration DIAGNOSTICS: See HPI Assessment/Plan Mel was seen today for follow-up. Diagnoses and all orders for this visit: Generalized abdominal pain (Primary) Abnormal CT of the abdomen Recurrent hernia Nausea and vomiting, unspecified vomiting type Class 2 obesity due to excess calories without serious comorbidity with body mass index (BMI) of 38.0 to 38.9 in adult 39-year-old female with recurrent incisional hernia. We discussed extensively today the risks, benefits and alternatives of an abdominal wall reconstruction to address the patient's recurrent incisional hernia. I recommend proceeding with a recurrent incisional hernia repair with bilateral posterior component separation. She understands the risks and would like to proceed with operative intervention. We will plan for surgery later this year/early next year. She is to continue her follow-ups with pain management. She is understanding of this. I met with the patient today to discuss risks and benefits of abdominal wall reconstruction with possible panniculectomy including, but not limited to, recurrence of the hernia, chronic pain, nerve injury, damage to surrounding organs/structures, risk of fistula, infection including mesh infection and need to remove the mesh, and injury to surrounding structures. We discussed potential for hemorrhage, infection, incomplete resolution of their symptoms, as well as cardiac and pulmonary-related complications. Additionally if panniculectomy is necessary, patient understands that they may lose their umbilicus and that I do not guarantee a cosmetic result. The goal of this operation is to restore physiologic continuity of their abdominal wall, not a cosmetic procedure. Patient understands that they may have multiple drains and/or a wound vac postoperatively. She was also given alternative non-operative treatment plans. The patient understands and wishes to proceed with recommendations. Patient has risk factor of obesity. I met with her today to discuss the risks and benefits of surgery as outlined above. Visual aids were used to describe the procedure. All questions were answered to patient's satisfaction. Plan: Initial Pre-Operative Testing Primary Procedure: Open recurrent incisional hernia repair, possible mesh, possible bilateral posterior component separation, Prevena wound VAC placement (August, September or October) Initial Testing: PAT Clearance: PAT Location: [facility] History of metabolic surgery: No I personally performed the evaluation and management of Mel Wall in the development of a treatment plan for this patient. I personally interviewed the patient and performed an individual physical examination. In addition, I discussed the patient's condition and treatment options with them. I have also reviewed and agree with the past medical, family and social history unless otherwise noted. All of the patient's questions were answered. I discussed/counseled the patient regarding the risks and benefits of surgery as well as the preoperative and postoperative care plan for this patient.The patient was seen and examined independently and relevant data reviewed by myself. A full chart review was performed. 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 Partial obstruction of small intestine (HCC) 06/13/2024 [2] Past Surgical History: Procedure Laterality Date APPENDECTOMY BILIOPANCREATIC DIVERSION 10/23/2008 Sherie @ [place]; janel-en-y duodenojejunostomy for bile reflux CHOLECYSTECTOMY 02/2007 lap COLONOSCOPY N/A 11/29/2023 [facility]; repeat in 11/2033 EXPLORATORY LAPAROTOMY 06/10/2019 Veronica @ [facility]; ex lap, WAI INCISION AND DRAINAGE OF WOUND 08/09/2013 [place]; I&D of surgical incision of LLQ INCISIONAL HERNIA REPAIR 10/20/2017 [place]; open primary repair INCISIONAL HERNIA REPAIR 07/12/2018 [place]; open w/ mesh INCISIONAL HERNIA REPAIR 09/26/2018 [facility]; lap w/ mesh INCISIONAL HERNIA REPAIR 03/11/2020 [facility]; repair w/ mesh excision, mesh replacement ([facility] Mesh w/ Echo), WAI INCISIONAL HERNIA REPAIR 07/19/2015 [place]; open repair w/ mesh INCISIONAL HERNIA REPAIR 08/07/2024 [facility]; an open recurrent repair w/ mesh, WAI, TAR, removal of infarcted cecal epiploic appendage PANNICULECTOMY (HISTORICAL) 08/07/2024 [facility] SOFT TISSUE MASS EXCISION 08/02/2013 [place]; STM excision of LLQ TONSILLECTOMY [3] Family History Problem Relation Name Age of Onset Hypertension Father Diabetes Father [4] Allergies Allergen Reactions Ketorolac Hives and Shortness of breath Other reaction(s): Hives Ondansetron Shortness of breath and Hives Other reaction(s): Hives, Respiratory distress Seasonal Itching and Other Stuffy nose [5] Current Outpatient Medications Medication Sig Dispense Refill cyclobenzaprine (Flexeril) 10 MG tablet FLUoxetine (PROzac) 20 MG capsule Take 20 mg by mouth daily. lidocaine (Lidoderm) 5 % patch Place 1 patch on the skin daily. oxyCODONE (Roxicodone) 5 MG immediate release tablet Take 5 mg by mouth every 6 hours as needed. promethazine (Phenergan) 12.5 MG tablet Take 12.5 mg by mouth every 8 hours as needed. No current facility-administered medications for this visit. documented in this encounter [facility] 06-12-2025 Note HNO ID: [id number] Author: HEATH FLORES MD Service: ? Author Type: Physician Type: Progress Notes Filed: 06/12/2025 08:38 Note Text: PATIENT: Mel Wall : 1985 DATE OF SERVICE: 06/12/2025 REFERRING PRACTITIONER: No ref. provider found PRIMARY CARE PROVIDER: Nanci Diaz APRN.CNP CHIEF COMPLAINT: Patient presents with: Abdominal Pain HISTORY OF PRESENT ILLNESS: Mel Wall is a 39 year old year old female who presents to the clinic today with chief complaint(s) as above. Onset/Duration: Approximately 10 years ago Injury: Patient denies injury that started this. Since 2014, she has had approximately 10 abdominal surgeries including a Janel-en-Y, ventral hernia repair, multiple hernia surgeries, cholecystectomy, appendectomy, x 3, lysis of adhesions. She is currently discussing with surgeon to have abdominal surgery in August Location/radiation/referral: Pain is in the abdomen worse in the 2 upper quadrants in the right lower quadrant but still some pain in the left lower quadrant. She does not have back pain or pain radiating into the groins or legs Description: Sharp, shooting, ripping Pain Level: Now: 8 /10 Best: 7 /10 Worst: 9 /10 Numbness/Tingling (location): None Weakness (location): None Better with: Heat, abdominal binder, pain medication Worse with: Movement, coughing, lifting anything Fever/Chills: [] Yes [x] No Recent significant weight change: [] Yes [x] No Bladder/Bowel incontinence: [] Yes [x] No Is this visit directly related to a work or auto injury? [] Yes [x] No If so, pre-Injury Symptoms: n/a Prior Related Consults: [x] Yes [] No 1. Surgeon is Dr. 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 HEENT: negative. EYES: negative RESPIRATORY: negative. CARDIOVASCULAR: negative. GASTROINTESTINAL: negative. GENITOURINARY: negative. INTEGUMENT/BREAST: negative. HEMATOLOGIC/LYMPHATIC: negative. NEURO/MUSCULOSKELETAL: Negative except above BEHAVIORAL/PSYCH: negative. ENDOCRINE: negative. ALLERGIC/IMMUNOLOGIC: Negative. 14 point ROS; pertinent positives listed above, the rest are reviewed and confirmed to be negative. === HISTORY: ALLERGIES Allergen Reactions Toradol [Ketorolac] Hives, Shortness of Breath Zofran [Ondansetron* Hives, Shortness of Breath Seasonal Allergies Itching, Other: See Comments Stuffy nose PAST MEDICAL HISTORY Diagnosis Date Abdominal wall mass of left lower quadrant 07/24/2013 Scar tissue with abscess. Resolved Anxiety Bipolar 1 disorder (HCC) Chronic pain syndrome 08/06/2019 Seeing [facility]: Dr. [facility] Depression Headache(784.0) 10/18/2013 Obesity, Class III, BMI 40-49.9 (morbid obesity) (HCC) 01/24/2018 Panic disorder 11/05/[address] Dukes Social phobia 11/05/2014 Ventral hernia 12/21/2019 PAST SURGICAL HISTORY Procedure Laterality Date APPENDECTOMY HX 2007 DELIVERY ONLY ,, COLONOSCOPY 2007 EXC TUMOR SOFT TISSUE ABDOMINAL WALL SUBQ 3+CM 08/02/13 [facility] prior incision, stitch granuloma/chronic abscess INCISION AND DRAINAGE COMPLEX PO WOUND INFECTION 08/09/13 [facility] SURG CHOLECYSTECTOMY W/CHOLANGIOGRAPHY 03-08-07 PAST SURGICAL HISTORY OF hernia repair x6 PAST SURGICAL HISTORY OF 06/10/2019 Open lysis of adhesions JANEL-EN-Y W/GASTROENTEROS 10/23/2008 Division of the duodenum with Janel-en-Y duodenojejunostomy - op note describes a duodenal switch procedure TUBAL LIGATION, FAMILY HISTORY Problem Relation Age of Onset Panic Disorder Mother Anxiety disorder Mother Bipolar disorder Mother Depression Mother Cervical Cancer Mother Cancer Mother ovarian cancer Coronary Artery Disease Father 53 Diabetes Father Hypertension Father Cancer Sister ovarian cancer Coronary Artery Disease Maternal Uncle 50's Cancer Maternal Grandmother ovarian cancer Osteoporosis Maternal Grandmother Cancer Paternal Grandmother ovarian cancer Diabetes Paternal Grandmother SOCIAL HISTORY[1] Current Outpatient Medications Medication Sig promethazine (PHENERGAN) 12.5 mg tablet Take 1 tablet by mouth every 8 hours as needed. naloxone 4 mg/actuation nasal spray (NARCAN) Use 1 spray in one nostril (more content not included)... [facility] 06-12-2025 History of Present illness Narrative PATIENT: Mel Wall : 1985 DATE OF SERVICE: 06/12/2025 REFERRING PRACTITIONER: No ref. provider found PRIMARY CARE PROVIDER: Nanci Diaz APRN.[employer]TER CHIEF COMPLAINT: Patient presents with: Abdominal Pain HISTORY OF PRESENT ILLNESS: Mel Wall is a 39 year old year old female who presents to the clinic today with chief complaint(s) as above. Onset/Duration: Approximately 10 years ago Injury: Patient denies injury that started this. Since 2014, she has had approximately 10 abdominal surgeries including a Janel-en-Y, ventral hernia repair, multiple hernia surgeries, cholecystectomy, appendectomy, x 3, lysis of adhesions. She is currently discussing with surgeon to have abdominal surgery in August Location/radiation/referral: Pain is in the abdomen worse in the 2 upper quadrants in the right lower quadrant but still some pain in the left lower quadrant. She does not have back pain or pain radiating into the groins or legs Description: Sharp, shooting, ripping Pain Level: Now: 8 /10 Best: 7 /10 Worst: 9 /10 Numbness/Tingling (location): None Weakness (location): None Better with: Heat, abdominal binder, pain medication Worse with: Movement, coughing, lifting anything Fever/Chills: [] Yes [x] No Recent significant weight change: [] Yes [x] No Bladder/Bowel incontinence: [] Yes [x] No Is this visit directly related to a work or auto injury? [] Yes [x] No If so, pre-Injury Symptoms: n/a Prior Related Consults: [x] Yes [] No 1. Surgeon is Dr. 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 HEENT: negative. EYES: negative RESPIRATORY: negative. CARDIOVASCULAR: negative. GASTROINTESTINAL: negative. GENITOURINARY: negative. INTEGUMENT/BREAST: negative. HEMATOLOGIC/LYMPHATIC: negative. NEURO/MUSCULOSKELETAL: Negative except above BEHAVIORAL/PSYCH: negative. ENDOCRINE: negative. ALLERGIC/IMMUNOLOGIC: Negative. 14 point ROS; pertinent positives listed above, the rest are reviewed and confirmed to be negative. === HISTORY: ALLERGIES Allergen Reactions Toradol [Ketorolac] Hives, Shortness of Breath Zofran [Ondansetron* Hives, Shortness of Breath Seasonal Allergies Itching, Other: See Comments Stuffy nose PAST MEDICAL HISTORY Diagnosis Date Abdominal wall mass of left lower quadrant 07/24/2013 Scar tissue with abscess. Resolved Anxiety Bipolar 1 disorder (HCC) Chronic pain syndrome 08/06/2019 Seeing [facility]: Dr. Moore Depression Headache(784.0) 10/18/2013 Obesity, Class III, BMI 40-49.9 (morbid obesity) (HCC) 01/24/2018 Panic disorder 11/05/[address] Dukes Social phobia 11/05/2014 Ventral hernia 12/21/2019 PAST SURGICAL HISTORY Procedure Laterality Date APPENDECTOMY HX 2007 DELIVERY ONLY ,, COLONOSCOPY 2007 EXC TUMOR SOFT TISSUE ABDOMINAL WALL SUBQ 3+CM 08/02/13 LLQ prior incision, stitch granuloma/chronic abscess INCISION & DRAINAGE COMPLEX PO WOUND INFECTION 08/09/13 LAPS SURG CHOLECYSTECTOMY W/CHOLANGIOGRAPHY 03-08-07 PAST SURGICAL HISTORY OF hernia repair x6 PAST SURGICAL HISTORY OF 06/10/2019 Open lysis of adhesions JANEL-EN-Y W/GASTROENTEROS 10/23/2008 Division of the duodenum with Janel-en-Y duodenojejunostomy - op note describes a duodenal switch procedure TUBAL LIGATION, FAMILY HISTORY Problem Relation Age of Onset Panic Disorder Mother Anxiety disorder Mother Bipolar disorder Mother Depression Mother Cervical Cancer Mother Cancer Mother ovarian cancer Coronary Artery Disease Father 53 Diabetes Father Hypertension Father Cancer Sister ovarian cancer Coronary Artery Disease Maternal Uncle 50's Cancer Maternal Grandmother ovarian cancer Osteoporosis Maternal Grandmother Cancer Paternal Grandmother ovarian cancer Diabetes Paternal Grandmother SOCIAL HISTORY[1] Current Outpatient Medications Medication Sig promethazine (PHENERGAN) 12.5 mg tablet Take 1 tablet by mouth every 8 hours as needed. naloxone 4 mg/actuation nasal spray (NARCAN) Use 1 spray in one nostril as needed for overdose. May repeat every 2 to 3 min in alternating nostrils until medical assistance is available cyclobenzaprine (FLEXERIL) 10 mg tablet Take 1 tablet by mouth three times a day as needed for pain or muscle spasm. oxyCODONE IR (ROXICODONE) 5 mg immediate release tablet Take 1 tablet by mouth every 6 hours as needed for pain for up to 7 days. lidocaine (LIDODERM) 5 % Apply 1 Patch as directed every 24 hours. REMOVE AFTER 12 HOURS. (Patient not taking: Reported on 06/12/2025) FLUoxetine (PROZAC) 20 mg capsule Take 1 capsule by mouth once daily. (Patient not taking: Reported on 06/12/2025) No current facility-administered medications for this visit. OBJECTIVE: VS: BP 122/62 (BP Site: Left Arm, BP Position: Sitting, BP Cuff Size: Regular Adult) Pulse 78 Resp 17 Ht 165.1 cm (5' 5) Wt 104.3 kg (230 lb) LMP 05/11/2024 SpO2 99% BMI 38.27 kg/m Body mass index is 38.27 kg/m . PHYSICAL EXAMINATION: Gen: Well developed. No acute distress. Eyes: Conjunctivae clear. Normal upper and lower lids. CV: Non-cyanotic. No obvious jugular venous distention. Chest: Non-labored breathing, good respiratory effort. Lymph: No visible regional lymphadenopathy. No gross edema noted. Skin: Visualized portions intact and no rashes or ecchymosis noted. Psych: Alert and well-oriented. Mood/Affect: appropriate. Neuro/MSK: Most tender to palpation in the epigastric area. No rebound tenderness but tenderness to palpation in all 4 quadrants. Some pain with hip flexion on the right. Low back without pain to palpation. Legs normal sensation bilateral Diagnostic Imaging: CT abdomen reviewed Other Diagnostic Studies: IMPRESSION: (G89.4) Chronic pain syndrome (primary encounter diagnosis) (R10.84) Generalized abdominal pain (F11.90) Chronic, continuous use of opioids (M79.18) Myofascial pain syndrome Mel Wall is a 39 year old female here with the following issues: Chronic abdominal pain, history of multiple surgeries, history of chronic opiate use over the years for these abdominal pain issues. Patient is unable to take NSAIDs due to her GI history. She has tried neuropathic pain meds in the past such as gabapentin and Lyrica without success, but with side effects. She has had some success with intermittent oxycodone, acetaminophen, cyclobenzaprine in the past. For now, we will focus on cyclobenzaprine, acetaminophen and intermittent oxycodone for flareup pain. Discussed after surgery in August we will wean her off these medications. PLAN: -Recommend: Continue care with surgeon Medication agreement signed today, urine drug screen today. Patient denies history of drug or alcohol abuse. Cyclobenzaprine for muscle spasm Tylenol as needed Oxycodone 5 mg #21 given for breakthrough pain. Discussed to use the sparingly. Discussed these can worsen small bowel obstructions which she was in the hospital for a few weeks ago. PDMP report reviewed We will hold off on any new injections as she has surgical issues pending Continue care with primary care The risks, benefits, alternative treatment options and prognosis were discussed and all of patient's questions/concerns were addressed. Follow-up: 4 to 6 weeks May certainly follow up sooner if needed. My final recommendations will be communicated back to the requesting physician by way of shared Medical record or letter to requesting physician via US mail. This note was produced using voice recognition software and therefore may contain typos. Please contact the author with any questions or concerns. Author: Heath Flores MD 06/12/2025 8:30 AM [1] Social History Tobacco Use Smoking status: Former Current packs/day: 0.00 Average packs/day: 0.5 packs/day for 1 year (0.5 ttl pk-yrs) Types: Cigarettes Start date: 11/10/2010 Quit date: 11/10/2011 Years since quittin.5 Smokeless tobacco: Never Vaping Use Vaping status: Never Used Substance Use Topics Alcohol use: Not Currently Comment: rare glass of wine Drug use: Yes Types: Marijuana Comment: for anxiety and for sleep Room 2 New Consult: Abdominal Pain documented in this encounter [facility] 06-12-2025 Note HNO ID: [id number] Author: NERISSA LEÓN MA Service: ? Author Type: Supply Chain Buyer Type: Progress Notes Filed: 06/12/2025 08:38 Note Text: Room 2 New Consult: Abdominal Pain [facility] 05-24-2025 Nurse Note This virtual RN discussed discharge instructions. IV was removed during the call by her bedside nurse. Patient scripts were sent to meds to beds. Once delivered, patient wishes to walk out. She declined wheelchair for transport. Ride is at bedside [facility] 05-24-2025 Nurse Note This virtual RN discussed discharge instructions. IV was removed during the call by her bedside nurse. Patient scripts were sent to meds to beds. Once delivered, patient wishes to walk out. She declined wheelchair for transport. Ride is at bedside Patient given discharge paperwork/instructions. IV removed. Meds to be delivered from [facility] pharmacy, Oxycodone script given to patient along with return to work note. All questions and concerns addressed. documented in this encounter [facility] 05-24-2025 Nurse Note Patient given discharge paperwork/instructions. IV removed. Meds to be delivered from [facility] pharmacy, Oxycodone script given to patient along with return to work note. All questions and concerns addressed. [facility] 05-24-2025 Note [facility] 05-24-2025 Hospital course Narrative [facility] Hospitalist Discharge Summary Mel Wall : 1985 Admit date: 05/20/2025 Discharge date: 05/24/2025 Admitting Physician: Cody Jeter DO Primary Care Physician: No primary care provider on file. VISIT STATUS: Inpatient/Observation CODE STATUS: Full Code DISCHARGE DIAGNOSES: Possible developing small bowel obstruction at jejunostomy Hypokalemia-resolved history of biliopancreatic diversion for bile reflux Chronic problems Obesity Anxiety Depression Omental infarction HOSPITAL COURSE: 39-year-old female with past medical history of THC use, depression, obesity, extensive surgical history with open recurrent inguinal hernia repair (08/07/24) w/ mesh complicated by seromas, lysis of adhesions, transverse abdominis release, panniculectomy, removal or infarcted cecal epiploic appendage last seen in the hospital on 05/11/2025. She initially presented to [facility] emergency department with abdominal pain. There was concern for intussusception/obstruction however patient improved so NG was never placed. Diet was advanced and patient was discharged home. Patient presented back to the emergency department on 05/20/2025 with a chief complaint of periumbilical pain. Her last bowel movement was yesterday, watery in nature, no blood. She developed nausea and vomiting. She has had 3 episodes of emesis (without bleeding), which triggered her presentation to the emergency department. She has associated dizziness (no focal neurologic deficits). She also feels like she has some chest pressure and intense neck although patient attributes this to anxiety. No fevers or chills. In the emergency department, patient was mildly tachycardic, blood pressure is mildly elevated but overall vitals are stable. CMP showed hyponatremia at 134, hypokalemia 3.1, mild acidosis with bicarb of 18, elevated glucose at 116, CBC unremarkable. UA negative for infection. CT abdomen pelvis completed showing eccentric circumferential wall thickening of her small bowel anastomosis suggesting partial intussusception versus mass/inflammation. She has findings consistent with known ventral hernia repair. Nonobstructive right renal calculus without hydronephrosis. Biliary duct distention consistent with her history of cholecystectomy. Small sliding-type hiatal hernia. Admitted at [facility] for further management. Seen by gen surgery and no acute surgical intervention. She was treated with bowel rest, IV hydration, IV pain medications. Symptoms improved, abdominal pain, nausea improved. Patient did not have any more episodes of emesis, had regular bowel movements, tolerated regular diet prior to discharge She was seen by psychiatric during the hospital stay, started on mirtazapine in addition to fluoxetine SIGNIFICANT DIAGNOSTIC STUDIES: CBC: Recent Labs 05/22/25 0700 WBC 7.2 RBC 4.34 HGB 13.5 HCT 41.0 MCV 94.5 RDW 12.2 PLT 253 BMP:@LABRCNT(NA:3,K:3,CL:3,CO2:3,BUN :3,CREATININE:3,GLUCOSE:3,CALCIUM :3,ANIONGAP:3)@ LIVER PROFILE:No results for input(s): AST, ALT, BILITOT, ALKPHOS, PROT in the last 72 hours. No lab exists for component: LABALBU PT/INR: No results for input(s): PROTIME, INR in the last 72 hours. CARDIAC ENZYMES: No results for input(s): TROPONINI in the last 72 hours. Procalcitonin: No results found for: PROCAL Urine Culture: No results found for this or any previous visit. @RISRSLTSPECIALTY@ MEDICATION CHANGES: Percocet, Phenergan, mirtazapine RECOMMENDED NEXT STEPS: Follow-up with general surgery, pain management Hospital Course: See discharge diagnoses list above and medication adjustments below in med rec.The patient is discharged in improved and stable condition. Consults: Discharge Instructions: Diet: Dietary Orders (From admission, onward) Start Ordered 05/24/25 08 Adult diet Regular Diet effective now Question: Diet type Answer: Regular 05/24/25 08 Activity: as tolerated Recommended Outpatient Tests: Disposition: Patient discharged in stable condition to Home. Greater than 31 minutes spent discharging the patient and coming up with patient discharge plan. Vitals: BP 133/76 (BP Location: Left arm, Patient Position: Lying) Pulse 63 Temp 36.6 C (97.9 F) (Temporal) Resp 16 Ht 5' 3 (1.6 m) Wt 220 lb (99.8 kg) SpO2 100% BMI 38.97 kg/m Pulse Ox: SpO2 Av % Min: 100 % Max: 100 % Supplemental O2: General appearance: No apparent distress, appears stated age and cooperative with exam Respiratory: Normal respiratory effort. Clear to auscultation, bilaterally without Rales/Wheezes/Rhonchi. Cardiovascular: Regular rate and rhythm with normal S1/S2 without murmurs, rubs or gallops. Abdomen: Soft, non-tender, non-distended with normal bowel sounds. No rebound or guarding. Musculoskeletal: Full range of motion without deformity, +2 peripheral pulses in all extremities. Skin: Skin color, texture, turgor normal. No rashes or lesions. Neurologic: Neurovascularly intact without any focal sensory/motor deficits. Discharge Medications: Medication List START taking these medications mirtazapine 15 MG disintegrating tablet Commonly known as: Remeron Lydia-Tab Take 1 tablet (15 mg) by mouth Nightly. oxyCODONE-acetaminophen 5-325 MG tablet Commonly known as: Percocet Take 1 tablet by mouth every 8 hours as needed for moderate pain (4-6) or severe pain (7-10) for up to 3 days. promethazine 12.5 MG tablet Commonly known as: Phenergan Take 1 tablet (12.5 mg) by mouth every 6 hours as needed for nausea or vomiting for up to 7 days. CONTINUE taking these medications FLUoxetine 20 MG capsule Commonly known as: PROzac STOP taking these medications acetaminophen 325 MG tablet Commonly known as: Tylenol albuterol 108 (90 Base) MCG/ACT inhaler hydrOXYzine HCl 25 MG tablet Commonly known as: Atarax oxyCODONE 5 MG immediate release tablet Commonly known as: Roxicodone Where to Get Your Medications These medications were sent to [facility] [address] [place] [address] Hours: Tuesday to Tuesday 10 am to 6 pm mirtazapine 15 MG disintegrating tablet promethazine 12.5 MG tablet You can get these medications from any pharmacy Bring a paper prescription for each of these medications oxyCODONE-acetaminophen 5-325 MG tablet Recommended Follow-up: Nanci Diaz APRN - [employer] [address] [phone] Follow up Hospital follow up Complexity of Follow up: [] Moderate Complexity: follow up within 7-14 calendar days (69619) [x] Severe Complexity: follow up within 7 calendar days ([id number]) Follow up Testing, Pending results or Referrals at Transitional Care Visit: [x] yes [] no Instructions to MA: Please call patient on day after discharge (must document patient contacted within 2 business days of discharge). Follow up questions for MA: 1. Did you get medications filled and taking them as instructed from discharge? 2. Are you following your discharge instructions from your hospital stay? 3. Please confirm patient is scheduled for a follow up appointment within the above time frame. Signed: Alix Galindo MD Division of Hospitalist Medicine Inpatient Medical Services/[facility] [place] 05/24/2025, 10:44 AM documented in this encounter [facility] 05-23-2025 History of Present illness Narrative Nutrition Assessment Type and Reason for Visit: Initial, NPO/Clear Liquid (DT referral) Nutrition Recommendations/Plan: Continue with full liquid diet and advance as tolerated to goal of GI Soft (Low Fiber) Encouraged small frequent meals to promote tolerance Monitor patients acceptance for ONS Suggest document po intake in nursing flow sheets RD continue to monitor overall nutritional status and follow up weekly Malnutrition Assessment: Malnutrition Status: At risk for malnutrition (Comment) Context: Acute Illness Findings of the 6 clinical characteristics of malnutrition: Energy Intake: Mild decrease in energy intake (Comment) (since admission (x4 days)) Weight Loss: No significant weight loss (limited weights (mostly stated) in epic) Body Fat Loss: No significant body fat loss Muscle Mass Loss: No significant muscle mass loss Fluid Accumulation: No significant fluid accumulation Karate Teacher Strength: Not Performed Nutrition Assessment: Brief Hospital course: Patient is a 39-year-old female with past medical history of THC use, depression, obesity, extensive surgical history with open recurrent inguinal hernia repair (08/07/24) w/ mesh complicated by seromas, lysis of adhesions, transverse abdominis release, panniculectomy, removal or infarcted cecal epiploic appendage last seen in the hospital on 05/11/2025. She initially presented to [facility] emergency department with abdominal pain.There was concern for intussusception/obstruction however patient improved so NG was never placed. Diet was advanced and patient was discharged home. Patient presented back to the ED on 05/20/2025 with a chief complaint of periumbilical pain. Her last bowel movement was yesterday, watery in nature, no blood. She developed nausea and vomiting. She has had 3 episodes of emesis (without bleeding), which triggered her presentation to the emergency department. She has associated dizziness (no focal neurologic deficits). She also feels like she has some chest pressure and intense neck although patient attributes this to anxiety. No fevers or chills. Labs reviewed. UA negative for infection. CT abdomen pelvis completed showing eccentric circumferential wall thickening of her small bowel anastomosis suggesting partial intussusception versus mass/inflammation. She has findings consistent with known ventral hernia repair. Nonobstructive right renal calculus without hydronephrosis. Biliary duct distention consistent with her history of cholecystectomy. Small sliding-type hiatal hernia. Paient admitted at [facility] for further management. Seen by gen surgery and no acute surgical intervention. Patient NPO with IVF. On 05/22/2025, patient still with complaints of abdominal pain and nausea. Says the IV Dilaudid helps but she missed her last dose. Patient still refusing NG tube. Today, CLD trial; can ADAT and was advanced to full liquid at lunch today. APS consulted for pain recs. General Surgery signed off. Patient sitting up in bed, lunch tray on tray table. Patient reports she had some cream of wheat (100%) and black coffee for lunch and tolerated. Encouraged small small frequent meals to promote tolerance. Patient interested in oral nutritional supplement but does not want any currently. Encourged patient to notify room service if she would like a supplement. Patient reports she follows a regular diet at home and has not had any unintentional weight changes. Estimated Daily Nutrient Needs: Energy Requirements Based On: Kcal/kg Weight Used for Energy Requirements: [place] Weight for Energy Calculation (kg): 52 kg Total Energy Requirements (kcals/day): 2955-0952 (28-32) Weight Used for Protein Requirements: [place] Weight in Kg Used for Protein Requirements: 52 kg Estimated Total Protein (g/day): 52-62 (1.0-1.2) Estimated Daily Total Fluid (ml/day): per MD Nutrition Related Findings: Wound Type: None Orientation Level: Oriented X4 Cognition: Appropriate judgement, Appropriate safety awareness, Follows commands Swallow: Able to swallow solids and liquids without difficulty Feeding: Independent Room Service Room Service: [employer] Pat[facility]io Scale Score: 20 Wound Type: None Net IO Since Admission: 2,263.33 mL [05/23/25 1619] Gastrointestinal (WDL): Exceptions to WDL Bowel Sounds (All Quadrants): Active Abdomen Inspection: Soft, Surgical scar (old, healing) Last BM Date: 05/23/25 Edema: no edema noted Oxygen Therapy: None (Room air) Labs and meds reviewed: BMP: Recent Labs 05/21/25 0035 05/22/25 0432 05/23/25 0620 NA 135* 136 137 K 3.4* 4.2 4.0 CL 107 108* 106 CO2 19* 19* 22 BUN 8 7* 11 CREATININE 0.59 0.55* 0.56* GLUCOSE 142* 93 103* CALCIUM 8.3* 8.7 8.7 MG 1.7 2.2 1.8 HEPATIC: Recent Labs 05/20/25 1627 AST 16 ALT 15 BILITOT 0.3 ALKPHOS 37* No results found for: POCGLU Scheduled: Scheduled Meds[1] Continuous: Continuous Meds[2] Current Nutrition Therapies: Adult diet Full liquid Current Oral Intake Average Meal Intake: 76-100% (cream of wheat) Average Supplements Intake: None Ordered Anthropometric Measures: Height: 160 cm (5' 3) Admission Body Weight: 99.8 kg (220 lb) Usual Body Weight: 101 kg (223 lb) (11/20/24) [place] Body Weight (lbs) (Calculated): 115 lbs [place] Body Weight (Kg) (Calculated): 52 kg Wt Readings from Last 8 Encounters: 05/20/25 99.8 kg (220 lb)stated 05/09/25 99.8 kg (220 lb)stated 04/29/25 99.8 kg (220 lb) 02/21/25 83.9 kg (185 lb)stated 12/25/24 97.5 kg (215 lb)stated 11/23/24 83 kg (183 lb) stated 11/20/24 101 kg (223 lb) 09/28/24 102 kg (223 lb 14.4 oz) Nutrition Diagnosis: Inadequate oral intake related to altered GI function, altered GI structure as evidenced by NPO or clear liquid status due to medical condition Nutrition Interventions: Nutrition Education/Counseling: No recommendation at this time Coordination of Nutrition Care: Continue to monitor while inpatient Goals: Goals: PO intake 50% or greater, by next RD assessment Nutrition Monitoring and Evaluation: Behavioral-Environmental Outcomes: None Identified Food/Nutrient Intake Outcomes: Diet Advancement/Tolerance, Food and Nutrient Intake Physical Signs/Symptoms Outcomes: Biochemical Data, GI Status, Fluid Status or Edema, Skin, Weight Discharge Planning: Too soon to determine Sol Mtz, MS RD LD Contact: [employer] or *[phone] [1] Diclofenac Sodium, 2 g, Topical, BID enoxaparin, 40 mg, SubCUTAneous, Daily FLUoxetine, 20 mg, Oral, Daily mirtazapine, 15 mg, Oral, Nightly [2] lactated Ringer's, 100 mL/hr, Last Rate: 100 mL/hr (05/23/25 1419) [facility] [place] Hospitalist Progress note [phone]: Please page me ([phone]) for patient care issues. [phone]: Please page [facility] [place] night Hospitalist for any issues. Subjective: Admit Date: 05/20/2025 PCP: No primary care provider on file. Room#: [id number] Primitivo Wall is a 39 y.o. female who presents with Periumbilical abdominal pain Brief Hospital course: Patient is a 39-year-old female with past medical history of THC use, depression, obesity, extensive surgical history with open recurrent inguinal hernia repair (08/07/24) w/ mesh complicated by seromas, lysis of adhesions, transverse abdominis release, panniculectomy, removal or infarcted cecal epiploic appendage last seen in the hospital on 05/11/2025. She initially presented to [facility] emergency department with abdominal pain. There was concern for intussusception/obstruction however patient improved so NG was never placed. Diet was advanced and patient was discharged home. Patient presented back to the emergency department on 05/20/2025 with a chief complaint of periumbilical pain. Her last bowel movement was yesterday, watery in nature, no blood. She developed nausea and vomiting. She has had 3 episodes of emesis (without bleeding), which triggered her presentation to the emergency department. She has associated dizziness (no focal neurologic deficits). She also feels like she has some chest pressure and intense neck although patient attributes this to anxiety. No fevers or chills. In the emergency department, patient was mildly tachycardic, blood pressure is mildly elevated but overall vitals are stable. CMP showed hyponatremia at 134, hypokalemia 3.1, mild acidosis with bicarb of 18, elevated glucose at 116, CBC unremarkable. UA negative for infection. CT abdomen pelvis completed showing eccentric circumferential wall thickening of her small bowel anastomosis suggesting partial intussusception versus mass/inflammation. She has findings consistent with known ventral hernia repair. Nonobstructive right renal calculus without hydronephrosis. Biliary duct distention consistent with her history of cholecystectomy. Small sliding-type hiatal hernia. Admitted at [facility] for further management. Seen by gen surgery and no acute surgical intervention. Interval History: No overnight issues. Patient feels better today, still complains of mild nausea, abdominal pain however passing flatus, having bowel movements. Denies chest pain, sob, diarrhea, constipation, fevers, or chills. Tolerating clear liquid diet okay today Reported eyes itching and swelling after her dose of tramadol, given 1 dose of Benadryl. Requesting switching the tramadol to oxycodone. Compazine was switched to IV Phenergan 12.5 mg, patient requesting that that could be increased to help with the nausea Reports Ativan is helping her anxiety Adult diet Full liquid 24HR INTAKE/OUTPUT: Intake/Output Summary (Last 24 hours) at 05/23/2025 1212 Last data filed at 05/22/2025 1720 Gross per 24 hour Intake 0 ml Output 0 ml Net 0 ml LABS: CBC: Recent Labs 05/20/25 1627 05/21/25 0035 05/22/25 0700 WBC 8.4 8.6 7.2 RBC 4.21 3.80 4.34 HGB 13.0 11.7 13.5 HCT 39.1 35.5 41.0 MCV 92.9 93.4 94.5 RDW 12.5 12.5 12.2 PLT 239 216 253 BMP: Recent Labs 05/21/25 0035 05/22/25 0432 05/23/25 0620 NA 135* 136 137 K 3.4* 4.2 4.0 CL 107 108* 106 CO2 19* 19* 22 BUN 8 7* 11 CREATININE 0.59 0.55* 0.56* GLUCOSE 142* 93 103* CALCIUM 8.3* 8.7 8.7 ANIONGAP 9 9 9 LIVER PROFILE: Recent Labs 05/20/25 1627 AST 16 ALT 15 BILITOT 0.3 ALKPHOS 37* PROT 6.8 PT/INR: No results for input(s): PROTIME, INR in the last 72 hours. CARDIAC ENZYMES: No results for input(s): TROPONINI in the last 72 hours. Procalcitonin: No results found for: PROCAL @RISRSLTSPECIALTY@ Objective: Vitals: BP 124/81 (BP Location: Left arm, Patient Position: Sitting) Pulse 86 Temp 37 C (98.6 F) (Temporal) Resp 15 Ht 5' 3 (1.6 m) Wt 220 lb (99.8 kg) SpO2 97% BMI 38.97 kg/m Pulse Ox: SpO2 Av % Min: 97 % Max: 97 % Supplemental O2: 05/23/2025 General appearance: No apparent distress, appears stated age, AAOX4 Oral: Tongue is semi-moist Cardiovascular: S1/S2 heard, RRR Respiratory: Clear to auscultation bilaterally Abdomen: Soft, mild generalized tenderness non-distended bowel sounds positive, no rigidity Medications: Continuous Meds[1] Scheduled Meds[2] Assessment Possible developing small bowel obstruction at jejunostomy Hypokalemia-resolved history of biliopancreatic diversion for bile reflux Chronic problems Obesity Anxiety Depression Omental infarction Plan General Surgery signed off, recommended advance diet as tolerated, changed to full liquid diet Acute pain service has been consulted however since patient is not postop, no helpful recommendations Discussed with patient about narcotics, since patient is getting closer to discharge, would like to stop all IV pain medications including IV Dilaudid. Patient requesting 1 more dose before discontinuing. Changed tramadol to p.o. oxycodone. Will continue Phenergan at the current dose Psychiatric consulted, added mirtazapine at night Stop IV fluids when she tolerates regular diet -am labs, replace lytes prn -increase activity Diet Adult diet Full liquid DVT Prophylaxis [x] Lovenox, [] Heparin, [] SCDs, [] Ambulation [] Already on Anticoagulation GI Prophylaxis [] PPI, [] H2 [place], [] Carafate, [] Diet/Tube Feeds Code Status Full Code MDM [] Low, [] Moderate,[] High Patient's risk as above Anticipated Discharge - Date - - Location - Home - Pending the following -diet toleration Total time spent (which include face to face and non face to face encounters) : 48 minutes Toxic drug monitoring/narrow therapeutic index drug monitoring : # Drug name : # Route administered : # Method of monitoring : Extended Emergency Contact Information Primary Emergency Contact: nilton loredo Address: [address] [place] [address] [place] Relation: Significant Other Advance Directive: Full Code Discharge planning: TBD Alix Galindo MD Division of Hospitalist Medicine Inpatient Medical Services/[facility] [place] [1] lactated Ringer's, 100 mL/hr, Last Rate: 100 mL/hr (05/23/25 0728) [2] Diclofenac Sodium, 2 g, Topical, BID enoxaparin, 40 mg, SubCUTAneous, Daily FLUoxetine, 20 mg, Oral, Daily mirtazapine, 15 mg, Oral, Nightly Department of Surgery Daily Progress Note Subjective No acute events overnight. Patient reports pain improved from prior day, seen by APS yesterday. Denies vomiting, nausea continuing to improve. Reports having BM and passing flatus yesterday. Interested in advancing diet. Patient requests benadryl for allergies. Patient without any questions or concerns. ROS: Noted above unless otherwise mentioned Objective VITALS: Temp: [37 C (98.6 F)] 37 C (98.6 F) Heart Rate: [86] 86 Resp: [15] 15 BP: (124)/(81) 124/81 INTAKE/OUTPUT: Reviewed in the EMR daily Intake/Output Summary (Last 24 hours) at 05/23/2025 0844 Last data filed at 05/22/2025 1720 Gross per 24 hour Intake 0 ml Output 0 ml Net 0 ml PHYSICAL EXAM: Gen: NAD, A&Ox3, pain well controlled Heart: RRR, well perfused Lungs: symmetric chest rise, normal work of breathing Abd: soft, minimally tender to palpation, minimal distension, no rebound or guarding Ext: no significant swelling or edema, no obvious deformities Skin: warm, well perfused, no obvious rashes, cellulitis or gross discoloration LABS/IMAGING Reviewed in the EMR daily Current Inpatient Medications Scheduled Meds:Scheduled Meds[1] Continuous Infusions:Continuous Meds[2] PRN Meds:PRN Meds[3] ASSESSMENT AND PLAN: 39 y.o. female with concerns for developing small bowel obstruction at her jejunojejunostomy with history of biliopancreatic diversion for bile reflux - CLD trial; can ADAT - As needed pain and nausea control; added phenergan instead of compazine - one time 25mg PO benadryl - APS consulted for pain reccs, saw patient yesterday - patient will see Dr. Taylor in office in 2 weeks - surgery to sign off at this time - remainder of care per primary Discussed with attending, Dr. Miranda Nevarez MD General Surgery Resident 05/23/25 8:44 AM ATTESTATION The patient was seen and examined. I have reviewed the patients presentation, histories, imaging and serology studies. I agree with the above assessment and plan. Ab: Soft, Non-distended, non-tender Patient continues to improve. She denies nausea or vomiting. Okay to advance diet as tolerated. Thank you for allowing me to participate in the care of this patient, please call for any questions, concerns or if the patient status changes. She will follow-up with me as an outpatient. --------- I personally performed the evaluation and management of Mel Wall in the development of a treatment plan for this patient. I personally interviewed the patient and performed an individual physical examination. In addition, I discussed the patient's condition and treatment options with them. I have also reviewed and agree with the past medical, family and social history unless otherwise noted. All of the patient's questions were answered. I personally spent 35 minutes of time between the face to face encounter, physical exam, reviewing the medical history, coordinating the patient's care, counseling/educating the patient, ordering prescriptions/medications/tests/proc edures, interpreting results and documenting clinical information in the patient's electronic health record on the day of the encounter. Patient Care Team: Serafin Taylor DO as Surgeon (General Surgery) [1] Diclofenac Sodium, 2 g, Topical, BID enoxaparin, 40 mg, SubCUTAneous, Daily FLUoxetine, 20 mg, Oral, Daily [2] lactated Ringer's, 100 mL/hr, Last Rate: 100 mL/hr (05/23/25 0728) [3] PRN medications: acetaminophen, acetaminophen OR acetaminophen, [DISCONTINUED] HYDROmorphone OR HYDROmorphone, ipratropium-albuterol, LORazepam, naloxone, polyethylene glycol (PEG) 3350, promethazine OR promethazine OR promethazine, traMADol Patient states she quit smoking in 2020, no history of vaping or smokeless tobacco. Smoking cessation counseling not indicated. Hospitalist Progress Note Subjective: Admit Date: 05/20/2025 PCP: No primary care provider on file. Room#: H-5110/H-5119 A Chief Complaint Patient presents with Abdominal Pain Patient from work via EMS due to sudden severe abdominal pain. Patient has a history of hernias and has felt sore since new hernia formation. Patient stated she was on the toilet and felt she had to have a bowel movement. Patient stated no bowel movement occurred however a sharp, sudden pain covered her upper umbilical region. Patient described a 10/10 pain. Brief Hospital course: Patient is a 39-year-old female with past medical history of THC use, depression, obesity, extensive surgical history with open recurrent inguinal hernia repair (08/07/24) w/ mesh complicated by seromas, lysis of adhesions, transverse abdominis release, panniculectomy, removal or infarcted cecal epiploic appendage last seen in the hospital on 05/11/2025. She initially presented to [facility] emergency department with abdominal pain. There was concern for intussusception/obstruction however patient improved so NG was never placed. Diet was advanced and patient was discharged home. Patient presented back to the emergency department on 05/20/2025 with a chief complaint of periumbilical pain. Her last bowel movement was yesterday, watery in nature, no blood. She developed nausea and vomiting. She has had 3 episodes of emesis (without bleeding), which triggered her presentation to the emergency department. She has associated dizziness (no focal neurologic deficits). She also feels like she has some chest pressure and intense neck although patient attributes this to anxiety. No fevers or chills. In the emergency department, patient was mildly tachycardic, blood pressure is mildly elevated but overall vitals are stable. CMP showed hyponatremia at 134, hypokalemia 3.1, mild acidosis with bicarb of 18, elevated glucose at 116, CBC unremarkable. UA negative for infection. CT abdomen pelvis completed showing eccentric circumferential wall thickening of her small bowel anastomosis suggesting partial intussusception versus mass/inflammation. She has findings consistent with known ventral hernia repair. Nonobstructive right renal calculus without hydronephrosis. Biliary duct distention consistent with her history of cholecystectomy. Small sliding-type hiatal hernia. Admitted at [facility] for further management. Seen by gen surgery and no acute surgical intervention. Interval History: 05/22/2025-Patient still with complaints of abdominal pain and nausea. Says the IV Dilaudid helps but she missed her last dose. Patient still refusing NG tube. Case and plan discussed with patient. All questions answered. Past Medical History: Medical History[1] NPO diet with enteral medications 24HR INTAKE/OUTPUT: Intake/Output Summary (Last 24 hours) at 05/22/2025 1252 Last data filed at 05/22/2025 0503 Gross per 24 hour Intake 1198.33 ml Output -- Net 1198.33 ml LABS: CBC: Recent Labs 05/20/25 1627 05/21/25 0035 05/22/25 0700 WBC 8.4 8.6 7.2 RBC 4.21 3.80 4.34 HGB 13.0 11.7 13.5 HCT 39.1 35.5 41.0 MCV 92.9 93.4 94.5 RDW 12.5 12.5 12.2 PLT 239 216 253 BMP: Recent Labs 05/20/25 1627 05/21/25 0035 05/22/25 0432 NA 134* 135* 136 K 3.1* 3.4* 4.2 CL 105 107 108* CO2 18* 19* 19* BUN 11 8 7* CREATININE 0.66 0.59 0.55* GLUCOSE 116* 142* 93 CALCIUM 8.9 8.3* 8.7 ANIONGAP 11 9 9 LIVER PROFILE: Recent Labs 05/20/25 1627 AST 16 ALT 15 BILITOT 0.3 ALKPHOS 37* PROT 6.8 PT/INR: No results for input(s): PROTIME, INR in the last 72 hours. CARDIAC ENZYMES: No results for input(s): TROPONINI in the last 72 hours. Procalcitonin: No results found for: PROCAL COVID-19 PCR: No results for input(s): COVID19 in the last 72 hours. Objective: Vitals: BP 124/74 Pulse 66 Temp 36.6 C (97.9 F) (Temporal) Resp 18 Ht 5' 3 (1.6 m) Wt 220 lb (99.8 kg) SpO2 98% BMI 38.97 kg/m Pulse Ox: SpO2 Av % Min: 98 % Max: 98 % Supplemental O2: Physical Exam Cardiovascular: Rate and Rhythm: Normal rate. Pulses: Normal pulses. Pulmonary: Effort: Pulmonary effort is normal. Abdominal: General: Bowel sounds are normal. Tenderness: There is abdominal tenderness. Hernia: A hernia is present. Medications: Scheduled PRN Scheduled Meds[2] PRN Meds[3] Continuous Continuous Meds[4] Assessment Data: (CAT1) Reviewed 3 or more notes from different specialty or health system (each=1). (LOW: 2x CAT1 or independent historian MOD: 3x CAT1 or 1x CAT3 EXTENSIVE: 3x CAT1 and 1x CAT3) Acute, acute on chronic, unstable/uncontrolled chronic problems/diagnoses: Developing small bowel obstruction at her jejunojejunostomy Multiple abdominal surgeries, open recurrent inguinal hernia repair (08/07/24) w/ mesh complicated by seromas, lysis of adhesions, transverse abdominis release, panniculectomy, removal or infarcted cecal epiploic appendage Abdominal hernia Hypokalemia-replaced Obesity Stable chronic problems affecting care, new non-acute diagnoses: 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 No NG tube placement at this time but considering - adjust pain meds (see orders) Long discussion with patient about narcotics and potential to worsen the SBO. Acute pain service has been consulted - am labs, replace lytes prn - PT/OT/CM/SW - delirium precautions: increase activity and limit nighttime disturbances - DVT prophylaxis: enoxaparin and encourage ambulation Complexity: Acute illness or injury posing a threat to life or body function (HIGH). Risk: Prescription drug/IVF/colloid was initiated, discontinued, adjusted; or reviewed with decision to maintain current orders (MOD). Advance Directive: Full Code Anticipated Discharge - Date - 05/24/25? - Location - Home - Pending the following - resolution of SBO, final surgery recs Extended Emergency Contact Information Primary Emergency Contact: nilton loredo Address: [address] [place] [address] of [place] Relation: Significant Other Cody Jeter DO Division of Hospital Medicine Inpatient Medical Services/[facility] [place] 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 Partial obstruction of small intestine (HCC) 06/13/2024 [2] Diclofenac Sodium, 2 g, Topical, BID enoxaparin, 40 mg, SubCUTAneous, Daily FLUoxetine, 20 mg, Oral, Daily [3] PRN medications: acetaminophen, acetaminophen OR acetaminophen, [DISCONTINUED] HYDROmorphone OR HYDROmorphone, ipratropium-albuterol, LORazepam, naloxone, polyethylene glycol (PEG) 3350, promethazine OR promethazine OR promethazine, traMADol [4] lactated Ringer's, 100 mL/hr, Last Rate: 100 mL/hr (05/22/25 7693) Nutrition rescreen completed. Patient is NPO/Clear liquid >3 days. Refer to Dietitian. Department of Surgery Daily Progress Note Subjective No acute events overnight. Patient reports continued pain, somewhat improved from prior day. Denies vomiting, has some nausea still but phenergan helping. Patient without any questions or concerns. ROS: Noted above unless otherwise mentioned Objective VITALS: Temp: [36.6 C (97.9 F)-37.1 C (98.8 F)] 36.6 C (97.9 F) Heart Rate: [66-82] 66 Resp: [15-18] 18 BP: (118-124)/(74-80) 124/74 INTAKE/OUTPUT: Reviewed in the EMR daily Intake/Output Summary (Last 24 hours) at 05/22/2025 0946 Last data filed at 05/22/2025 0503 Gross per 24 hour Intake 1198.33 ml Output -- Net 1198.33 ml PHYSICAL EXAM: Gen: NAD, A&Ox3, pain well controlled Heart: RRR, well perfused Lungs: symmetric chest rise, normal work of breathing Abd: soft, mildly tender to palpation, mildly distension, no rebound or guarding Ext: no significant swelling or edema, no obvious deformities Skin: warm, well perfused, no obvious rashes, cellulitis or gross discoloration LABS/IMAGING Reviewed in the EMR daily Current Inpatient Medications Scheduled Meds:Scheduled Meds[1] Continuous Infusions:Continuous Meds[2] PRN Meds:PRN Meds[3] ASSESSMENT AND PLAN: 39 y.o. female with concerns for developing small bowel obstruction at her jejunojejunostomy with history of biliopancreatic diversion for bile reflux - No acute surgical intervention indicated at this time - patient's symptoms stable - conservative management with nasogastric decompression, patient denying at this time despite risks of aspiration, states she will consider NGT placement if worsening nausea and vomiting - continue bowel rest - N.p.o. with LR to 100 - As needed pain and nausea control; added phenergan instead of compazine - consulted acute pain service for pain control management - patient will see Dr. Taylor in office in 2 weeks - remainder of care per primary Will discuss with attending, Dr. Miranda Nevarez MD General Surgery Resident 05/22/25 9:46 AM ATTESTATION The patient was seen and examined. I have reviewed the patients presentation, histories, imaging and serology studies. I agree with the above assessment and plan. Ab: Soft, Non-distended, non-tender Patient resting in bed, pain is improving. Okay to advance diet. No acute surgical intervention at this time. Follow-up with me outpatient. Will continue to follow. --------- I personally performed the evaluation and management of Mel Wall in the development of a treatment plan for this patient. I personally interviewed the patient and performed an individual physical examination. In addition, I discussed the patient's condition and treatment options with them. I have also reviewed and agree with the past medical, family and social history unless otherwise noted. All of the patient's questions were answered. I personally spent 35 minutes of time between the face to face encounter, physical exam, reviewing the medical history, coordinating the patient's care, counseling/educating the patient, ordering prescriptions/medications/tests/proc edures, interpreting results and documenting clinical information in the patient's electronic health record on the day of the encounter. Patient Care Team: Serafin Taylor DO as Surgeon (General Surgery) [1] Diclofenac Sodium, 2 g, Topical, BID enoxaparin, 40 mg, SubCUTAneous, Daily FLUoxetine, 20 mg, Oral, Daily [2] lactated Ringer's, 100 mL/hr, Last Rate: 100 mL/hr (05/22/25 0503) [3] PRN medications: acetaminophen, acetaminophen OR acetaminophen, HYDROmorphone OR HYDROmorphone, ipratropium-albuterol, LORazepam, naloxone, polyethylene glycol (PEG) 3350, promethazine OR promethazine OR promethazine Hospitalist Progress Note Subjective: Admit Date: 05/20/2025 PCP: No primary care provider on file. Room#: H-5110/H-5110 A Chief Complaint Patient presents with Abdominal Pain Patient from work via EMS due to sudden severe abdominal pain. Patient has a history of hernias and has felt sore since new hernia formation. Patient stated she was on the toilet and felt she had to have a bowel movement. Patient stated no bowel movement occurred however a sharp, sudden pain covered her upper umbilical region. Patient described a 10/10 pain. Brief Hospital course: Patient is a 39-year-old female with past medical history of THC use, depression, obesity, extensive surgical history with open recurrent inguinal hernia repair (08/07/24) w/ mesh complicated by seromas, lysis of adhesions, transverse abdominis release, panniculectomy, removal or infarcted cecal epiploic appendage last seen in the hospital on 05/11/2025. She initially presented to [facility] emergency department with abdominal pain. There was concern for intussusception/obstruction however patient improved so NG was never placed. Diet was advanced and patient was discharged home. Patient presented back to the emergency department on 05/20/2025 with a chief complaint of periumbilical pain. Her last bowel movement was yesterday, watery in nature, no blood. She developed nausea and vomiting. She has had 3 episodes of emesis (without bleeding), which triggered her presentation to the emergency department. She has associated dizziness (no focal neurologic deficits). She also feels like she has some chest pressure and intense neck although patient attributes this to anxiety. No fevers or chills. In the emergency department, patient was mildly tachycardic, blood pressure is mildly elevated but overall vitals are stable. CMP showed hyponatremia at 134, hypokalemia 3.1, mild acidosis with bicarb of 18, elevated glucose at 116, CBC unremarkable. UA negative for infection. CT abdomen pelvis completed showing eccentric circumferential wall thickening of her small bowel anastomosis suggesting partial intussusception versus mass/inflammation. She has findings consistent with known ventral hernia repair. Nonobstructive right renal calculus without hydronephrosis. Biliary duct distention consistent with her history of cholecystectomy. Small sliding-type hiatal hernia. Admitted at [facility] for further management. Seen by gen surgery and no acute surgical intervention. Interval History: 05/21/2025-Patient still with complaints of abdominal pain and nausea. Patient still refusing NG tube. Case and plan discussed with patient. All questions answered. Past Medical History: Medical History[1] NPO diet with enteral medications 24HR INTAKE/OUTPUT: Intake/Output Summary (Last 24 hours) at 05/21/2025 1151 Last data filed at 05/21/2025 0641 Gross per 24 hour Intake 1065 ml Output -- Net 1065 ml LABS: CBC: Recent Labs 05/20/25 1627 05/21/25 0035 WBC 8.4 8.6 RBC 4.21 3.80 HGB 13.0 11.7 HCT 39.1 35.5 MCV 92.9 93.4 RDW 12.5 12.5 PLT 239 216 BMP: Recent Labs 05/20/25 1627 05/21/25 0035 NA 134* 135* K 3.1* 3.4* CL 105 107 CO2 18* 19* BUN 11 8 CREATININE 0.66 0.59 GLUCOSE 116* 142* CALCIUM 8.9 8.3* ANIONGAP 11 9 LIVER PROFILE: Recent Labs 05/20/25 1627 AST 16 ALT 15 BILITOT 0.3 ALKPHOS 37* PROT 6.8 PT/INR: No results for input(s): PROTIME, INR in the last 72 hours. CARDIAC ENZYMES: No results for input(s): TROPONINI in the last 72 hours. Procalcitonin: No results found for: PROCAL COVID-19 PCR: No results for input(s): COVID19 in the last 72 hours. Objective: Vitals: BP 110/61 (BP Location: Right arm, Patient Position: Lying) Pulse 78 Temp 36.3 C (97.3 F) (Temporal) Resp 16 Ht 5' 3 (1.6 m) Wt 220 lb (99.8 kg) SpO2 98% BMI 38.97 kg/m Pulse Ox: SpO2 Av.8 % Min: 98 % Max: 100 % Supplemental O2: Physical Exam Cardiovascular: Rate and Rhythm: Normal rate. Pulses: Normal pulses. Pulmonary: Effort: Pulmonary effort is normal. Abdominal: General: Bowel sounds are normal. Tenderness: There is abdominal tenderness. Hernia: A hernia is present. Medications: Scheduled PRN Scheduled Meds[2] PRN Meds[3] Continuous Continuous Meds[4] Assessment Data: (CAT1) Reviewed 3 or more notes from different specialty or health system (each=1). (LOW: 2x CAT1 or independent historian MOD: 3x CAT1 or 1x CAT3 EXTENSIVE: 3x CAT1 and 1x CAT3) Acute, acute on chronic, unstable/uncontrolled chronic problems/diagnoses: Developing small bowel obstruction at her jejunojejunostomy Multiple abdominal surgeries, open recurrent inguinal hernia repair (08/07/24) w/ mesh complicated by seromas, lysis of adhesions, transverse abdominis release, panniculectomy, removal or infarcted cecal epiploic appendage Abdominal hernia Hypokalemia Obesity Stable chronic problems affecting care, new non-acute diagnoses: 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 Patient tell me that she is still refusing NG tube placement at this time but will consider it and likely have it placed if she doesn't feel better - am labs, replace lytes prn - PT/OT/CM/SW - delirium precautions: increase activity and limit nighttime disturbances - DVT prophylaxis: enoxaparin and encourage ambulation Complexity: Acute illness or injury posing a threat to life or body function (HIGH). Risk: Prescription drug/IVF/colloid was initiated, discontinued, adjusted; or reviewed with decision to maintain current orders (MOD). Advance Directive: Full Code Anticipated Discharge - Date - 05/23/25-05/24/25? 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 Patient reports continued pain since admission. Denies vomiting but endorses continue nausea. Reports last BM and passing of flatus 2 days ago. Patient reports that she feels distended, does not have an appetite. Patient asks for compazine to be switched to phenergan due to anxiety with compazine. Denies: fevers, chill. ROS: Noted above unless otherwise mentioned Objective VITALS: Temp: [36.3 C (97.3 F)-36.9 C (98.5 F)] 36.3 C (97.3 F) Heart Rate: [78-101] 78 Resp: [13-19] 16 BP: (110-143)/(61-114) 110/61 INTAKE/OUTPUT: Reviewed in the EMR daily Intake/Output Summary (Last 24 hours) at 05/21/2025 0809 Last data filed at 05/21/2025 0641 Gross per 24 hour Intake 1065 ml Output -- Net 1065 ml PHYSICAL EXAM: Gen: NAD, A&Ox3, pain well controlled Heart: RRR, well perfused Lungs: symmetric chest rise, normal work of breathing Abd: soft, mildly tender to palpation, mildly distended, no rebound or guarding Ext: no significant swelling or edema, no obvious deformities Skin: warm, well perfused, no obvious rashes, cellulitis or gross discoloration LABS/IMAGING Reviewed in the EMR daily Current Inpatient Medications Scheduled Meds:Scheduled Meds[1] Continuous Infusions:Continuous Meds[2] PRN Meds:PRN Meds[3] ASSESSMENT AND PLAN: 39 y.o. female with concerns for developing small bowel obstruction at her jejunojejunostomy with history of biliopancreatic diversion for bile reflux - No acute surgical intervention indicated at this time - conservative management with nasogastric decompression, patient denying at this time despite risks of aspiration, states she will consider NGT placement if worsening nausea and vomiting - Bowel rest - N.p.o. with LR to 100 - As needed pain and nausea control; added phenergan instead of compazine - consulted acute pain service for pain control management - remainder of care per primary Will discuss with attending, Dr. Miranda Nevarez MD General Surgery Resident 05/21/25 8:09 AM ATTESTATION The patient was seen and examined. I have reviewed the patients presentation, histories, imaging and serology studies. I agree with the above assessment and plan. Please refer to consultation note --------- I (Serafin Taylor) personally supervised the resident/fellow in the evaluation and development of a treatment plan for this patient including using nursing/ems notes. I personally discussed the review of systems and interviewed the patient along with performing a physical examination. In addition, I discussed the patient's condition and treatment options with them. I have also reviewed and agree with the past medical, family and social history unless otherwise noted and personally reviewed the imaging and labs. This note may be a delayed entry. All of the patient's questions were answered. The patient was seen and examined independently and relevant data reviewed by myself. A full chart review was performed. [1] Diclofenac Sodium, 2 g, Topical, BID enoxaparin, 40 mg, SubCUTAneous, Daily FLUoxetine, 20 mg, Oral, Daily magnesium sulfate, 2,000 mg, IntraVENous, Once potassium chloride, 40 mEq, IntraVENous, Once [2] sodium chloride, 100 mL/hr, Last Rate: 100 mL/hr (05/21/25 0101) [3] PRN medications: acetaminophen, acetaminophen OR acetaminophen, HYDROmorphone OR HYDROmorphone, ipratropium-albuterol, LORazepam, naloxone, polyethylene glycol (PEG) 3350, promethazine OR promethazine OR promethazine documented in this encounter [facility] 05-23-2025 Telephone encounter Note Patient called and stated she is going to be discharged this evening or tomorrow from the hospital and the surgeon stated they do not provide pain medication once the patient leaves the hospital. Patient stated she was able to get a sooner appointment with pain management on 06/12 but she still would need some pain meds until then if possible. This nurse let patient know a message would be sent to provider and we will follow up. Please Advise. Kendra Anderson LPN [facility] 05-23-2025 Miscellaneous Notes Patient called and stated she is going to be discharged this evening or tomorrow from the hospital and the surgeon stated they do not provide pain medication once the patient leaves the hospital. Patient stated she was able to get a sooner appointment with pain management on 06/12 but she still would need some pain meds until then if possible. This nurse let patient know a message would be sent to provider and we will follow up. Please Advise. Kendra Anderson LPN documented in this encounter [facility] 05-23-2025 Consult note Associated Order (s): IP CONSULT TO PSYCHIATRY Mel Wall is a 39 y.o.female Chief Complaint Patient presents with Abdominal Pain Patient from work via EMS due to sudden severe abdominal pain. Patient has a history of hernias and has felt sore since new hernia formation. Patient stated she was on the toilet and felt she had to have a bowel movement. Patient stated no bowel movement occurred however a sharp, sudden pain covered her upper umbilical region. Patient described a 10/10 pain. Here for suspected intussusception. Prior history of multiple surgeries related to herniorrhaphies. Patient has chronic abdominal pain due to adhesions, recurrent ventral hernia, and impaired gut motility. Is prescribed prozac 20 mg daily for depression,panic attacks. 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 worried that illness would be prolonged and cause a job loss). One prior psychiatric admision in 2007 at [facility] due to SI at that time, no attempts noted, no other care reported. Abdominal Pain Associated symptoms include nausea and vomiting. Medical History[1] Current Outpatient Medications Medication Instructions acetaminophen (TYLENOL) 650 mg, Every 6 hours PRN albuterol 108 (90 Base) MCG/ACT inhaler 2 puffs, Every 4 hours PRN FLUoxetine (PROZAC) 20 mg, Daily hydrOXYzine HCl (ATARAX) 25 mg, Oral, Every 8 hours PRN Allergies[2] Surgical History[3] Family History[4] Social History Tobacco Use Smoking status: Former Current packs/day: 0.00 Types: Cigarettes Quit date: 2020 Years since quittin.6 Smokeless tobacco: Never Tobacco comments: Patient states she quit smoking in 2020, no history of vaping or smokeless tobacco. Smoking cessation counseling not indicated. Vaping Use Vaping status: Never Used Substance Use Topics Alcohol use: Not Currently Drug use: Yes Frequency: 2.0 times per week Types: Marijuana Comment: edibles No medical marijuana in use. PDMP shows small Rx on occasion for pain medication Vitals: 05/21/25 0421 05/21/25 1709 05/22/25 0434 05/22/25 1716 BP: 110/61 118/80 124/74 124/81 BP Location: Right arm Left arm Left arm Patient Position: Lying Sitting Sitting Pulse: 78 82 66 86 Resp: 16 15 18 15 Temp: 36.3 C (97.3 F) 37.1 C (98.8 F) 36.6 C (97.9 F) 37 C (98.6 F) TempSrc: Temporal Temporal Temporal Temporal SpO2: 98% 98% 98% 97% Weight: Height: Review of Systems Gastrointestinal: Positive for abdominal pain, nausea and vomiting. Neurological: Negative for tremors. Psychiatric/Behavioral: Positive for dysphoric mood and sleep disturbance. Negative for behavioral problems and suicidal ideas. The patient is nervous/anxious. Physical Exam Vitals reviewed. Constitutional: Appearance: She is ill-appearing. Cardiovascular: Rate and Rhythm: Normal rate. Pulmonary: Effort: Pulmonary effort is normal. Neurological: General: No focal deficit present. Mental Status: She is alert and oriented to person, place, and time. Mental status is at baseline. Psychiatric: Attention and Perception: Attention normal. Mood and Affect: Mood is anxious. Affect is tearful. Speech: She is communicative. Speech is not tangential. Behavior: Behavior is not agitated or hyperactive. Thought Content: Thought content is not paranoid or delusional. Thought content does not include suicidal ideation. Cognition and Memory: Cognition is not impaired. She does not exhibit impaired recent memory. Judgment: Judgment is not impulsive or inappropriate. Assessment Problem List Items Addressed This Visit * (Principal) Periumbilical abdominal pain - Primary Depression with anxiety Plan Trial of mirtazapine 15 mg nightly for insomnia and anxiety. Continue fluoxetine as ordered. Will monitor as able while here. Patient may follow up with present prescriber as outpatient. 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 Partial obstruction of small intestine (HCC) 06/13/2024 [2] Allergies Allergen Reactions Ketorolac Hives and Shortness of breath Other reaction(s): Hives Ondansetron Shortness of breath and Hives Other reaction(s): Hives, Respiratory distress Seasonal Itching and Other Stuffy nose [3] Past Surgical History: Procedure Laterality Date APPENDECTOMY BILIOPANCREATIC DIVERSION 10/23/2008 Sherie @ [facility]; janel-en-y duodenojejunostomy for bile reflux CHOLECYSTECTOMY 02/2007 lap COLONOSCOPY N/A 11/29/2023 Miranda; repeat in 11/2033 EXPLORATORY LAPAROTOMY 06/10/2019 Veronica @ [facility]; ex lap, [facility] INCISION AND DRAINAGE OF WOUND 08/09/2013 [facility]; I&D of surgical incision of LLQ INCISIONAL HERNIA REPAIR 10/20/2017 [facility]; open primary repair INCISIONAL HERNIA REPAIR 07/12/2018 [facility]; open w/ mesh INCISIONAL HERNIA REPAIR 09/26/2018 [facility]; lap w/ mesh INCISIONAL HERNIA REPAIR 03/11/2020 [facility]; repair w/ mesh excision, mesh replacement ([facility] Mesh w/ Echo), WAI INCISIONAL HERNIA REPAIR 07/19/2015 [facility]; open repair w/ mesh INCISIONAL HERNIA REPAIR 08/07/2024 [facility]; an open recurrent repair w/ mesh, WAI, TAR, removal of infarcted cecal epiploic appendage PANNICULECTOMY (HISTORICAL) 08/07/2024 [facility] SOFT TISSUE MASS EXCISION 08/02/2013 [facility]; STM excision of LLQ TONSILLECTOMY [4] Family History Problem Relation Name Age of Onset Hypertension Father Diabetes Father BULX Work Phone: 05-23-2025 Consult note Associated Order (s): IP CONSULT TO PSYCHIATRY Mel Wall is a 39 y.o.female Chief Complaint Patient presents with Abdominal Pain Patient from work via EMS due to sudden severe abdominal pain. Patient has a history of hernias and has felt sore since new hernia formation. Patient stated she was on the toilet and felt she had to have a bowel movement. Patient stated no bowel movement occurred however a sharp, sudden pain covered her upper umbilical region. Patient described a 10/10 pain. Here for suspected intussusception. Prior history of multiple surgeries related to herniorrhaphies. Patient has chronic abdominal pain due to adhesions, recurrent ventral hernia, and impaired gut motility. Is prescribed prozac 20 mg daily for depression,panic attacks. 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 worried that illness would be prolonged and cause a job loss). One prior psychiatric admision in 2007 at [facility] due to SI at that time, no attempts noted, no other care reported. Abdominal Pain Associated symptoms include nausea and vomiting. Medical History[1] Current Outpatient Medications Medication Instructions acetaminophen (TYLENOL) 650 mg, Every 6 hours PRN albuterol 108 (90 Base) MCG/ACT inhaler 2 puffs, Every 4 hours PRN FLUoxetine (PROZAC) 20 mg, Daily hydrOXYzine HCl (ATARAX) 25 mg, Oral, Every 8 hours PRN Allergies[2] Surgical History[3] Family History[4] Social History Tobacco Use Smoking status: Former Current packs/day: 0.00 Types: Cigarettes Quit date: 2020 Years since quittin.6 Smokeless tobacco: Never Tobacco comments: Patient states she quit smoking in 2020, no history of vaping or smokeless tobacco. Smoking cessation counseling not indicated. Vaping Use Vaping status: Never Used Substance Use Topics Alcohol use: Not Currently Drug use: Yes Frequency: 2.0 times per week Types: Marijuana Comment: edibles No medical marijuana in use. PDMP shows small Rx on occasion for pain medication Vitals: 05/21/25 0421 05/21/25 1709 05/22/25 0434 05/22/25 1716 BP: 110/61 118/80 124/74 124/81 BP Location: Right arm Left arm Left arm Patient Position: Lying Sitting Sitting Pulse: 78 82 66 86 Resp: 16 15 18 15 Temp: 36.3 C (97.3 F) 37.1 C (98.8 F) 36.6 C (97.9 F) 37 C (98.6 F) TempSrc: Temporal Temporal Temporal Temporal SpO2: 98% 98% 98% 97% Weight: Height: Review of Systems Gastrointestinal: Positive for abdominal pain, nausea and vomiting. Neurological: Negative for tremors. Psychiatric/Behavioral: Positive for dysphoric mood and sleep disturbance. Negative for behavioral problems and suicidal ideas. The patient is nervous/anxious. Physical Exam Vitals reviewed. Constitutional: Appearance: She is ill-appearing. Cardiovascular: Rate and Rhythm: Normal rate. Pulmonary: Effort: Pulmonary effort is normal. Neurological: General: No focal deficit present. Mental Status: She is alert and oriented to person, place, and time. Mental status is at baseline. Psychiatric: Attention and Perception: Attention normal. Mood and Affect: Mood is anxious. Affect is tearful. Speech: She is communicative. Speech is not tangential. Behavior: Behavior is not agitated or hyperactive. Thought Content: Thought content is not paranoid or delusional. Thought content does not include suicidal ideation. Cognition and Memory: Cognition is not impaired. She does not exhibit impaired recent memory. Judgment: Judgment is not impulsive or inappropriate. Assessment Problem List Items Addressed This Visit * (Principal) Periumbilical abdominal pain - Primary Depression with anxiety Plan Trial of mirtazapine 15 mg nightly for insomnia and anxiety. Continue fluoxetine as ordered. Will monitor as able while here. Patient may follow up with present prescriber as outpatient. 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 Partial obstruction of small intestine (HCC) 06/13/2024 [2] Allergies Allergen Reactions Ketorolac Hives and Shortness of breath Other reaction(s): Hives Ondansetron Shortness of breath and Hives Other reaction(s): Hives, Respiratory distress Seasonal Itching and Other Stuffy nose [3] Past Surgical History: Procedure Laterality Date APPENDECTOMY BILIOPANCREATIC DIVERSION 10/23/2008 Sherie @ [place]; janel-en-y duodenojejunostomy for bile reflux CHOLECYSTECTOMY 02/2007 lap COLONOSCOPY N/A 11/29/2023 [facility]; repeat in 11/2033 EXPLORATORY LAPAROTOMY 06/10/2019 Veronica @ [facility]; ex lap, [facility] INCISION AND DRAINAGE OF WOUND 08/09/2013 [facility]; I&D of surgical incision of LLQ INCISIONAL HERNIA REPAIR 10/20/2017 [facility]; open primary repair INCISIONAL HERNIA REPAIR 07/12/2018 [facility]; open w/ mesh INCISIONAL HERNIA REPAIR 09/26/2018 [facility]; lap w/ mesh INCISIONAL HERNIA REPAIR 03/11/2020 ; repair w/ mesh excision, mesh replacement ([facility]ent[facility] [facility] Mesh w/ Echo), WAI INCISIONAL HERNIA REPAIR 07/19/2015 [facility]; open repair w/ mesh INCISIONAL HERNIA REPAIR 08/07/2024 [facility]; an open recurrent repair w/ mesh, [facility], TAR, removal of infarcted cecal epiploic appendage PANNICULECTOMY (HISTORICAL) 08/07/2024 [facility] SOFT TISSUE MASS EXCISION 08/02/2013 [facility]; STM excision of LLQ TONSILLECTOMY [4] Family History Problem Relation Name Age of Onset Hypertension Father Diabetes Father Associated Order(s): IP CONSULT TO ANESTHESIOLOGY - ACUTE PAIN SERVICE Images from the original note were not included. PAGING: The Acute Pain Service providers are available exclusively via [employer]. APS does not utilize pagers. 05/22/2025 Lab Results Component Value Date CREATININE 0.55 (L) 05/22/2025 AST 16 05/20/2025 ALT 15 05/20/2025 Discharge Recommendations: Patient to follow up with outpatient chronic pain. Pain Management Adjuvants: 0700 --> 0700 05/21 Scheduled APAP PRN Hydromorphone IV 5 mg Assessment / Pain Management Plan: Agree with primary, limit narcotics if possible d/t possible SBO. Utilize non opioid adjuvants to manage pain, as opioids can slow bowel motility and possibly worsen obstruction. Recommendations made, will sign off at this time. Thank you for inviting us to participate in the care of this patient. Please re consult our service if patient's pain worsens despite recommendations, or pt requires surgical intervention. Acute on chronic Abdominal pain Multimodal pain regimen: This patient is under the care of the Acute Pain Service for postop pain management. Please do not alter pain regimen without speaking to an APS provider. Providers are available via SecureChat 02/05, thank you. BLOCK: n/a Recommend schedule Ofirmev ATC Recommend lidoderm patch X2- cut and place where needed. Continue IV Hydromorphone 0.5 mg - 1 mg IVP q4h prn moderate to severe breakthrough pain while work up is in place. Wean as patient able to tolerate diet. Limit doses if possible. Recommend IV robaxin 1,000 mg TID PRN for spasms, do not administer longer than 3 consecutive days. If patient tolerating PO, recommend Oxycodone to 5-10 mg Q 4 -6hours PRN while work up is in progress. Patient might benefit from PO ketamine, she has hx of multiple surgeries, exposure to opioids. Continue Naloxone 0.4 mg IVP prn opioid reversal. PRN if respiratory rate is less than 6/min and patient is difficult to arouse then notify physician STAT. Mix 9 mL of sodium chloride 0.9% with 0.4 mg (1 mL) of naloxone (NARCAN) in 10 mL syringe. (Note: dilution is 0.04 mg/mL) Give 0.08 mg (2 mL of special dilution), slow IV push, repeat up to 0.4 mg (10 mL) or until patient is responsive to physical stimulation and respiratory rate is equal to or greater than 6 breaths/min. Continue to observe, if no response within 3 minutes of administration of 0.4 mg (10 mL) total, repeat dose (0.4 mg as administered previously). Concerns for developing small bowel obstruction at her jejunojejunostomy with history of biliopancreatic diversion for bile reflux No acute surgical intervention at this time. Bowel rest General surgery following, recommended NG however patient refused See #1 Bipolar Affective Pt very tearful on exam, states she has poor quality of life. Discussed consult to psychiatry for assistance, pt agrees. Appreciate assistance. Constipation At risk for opioid induced constipation Patient currently receiving opioids for pain management necessitating a bowel regimen. Recommend initiating scheduled Sennakot-S 8.6/50mg, 1 tablet PO BID. Would also recommend Milk of Magnesia 400mg/5ml, administer 30mL by mouth daily PRN. Opioid Use, Acute on Chronic Reviewed and educated patient on responsible use of opioids: , it can be normal to experience pain. If it is mild and you can move about without great difficulty or discomfort, you may not need to take pain medication. It is very important to take your pain medication only as needed. Avoiding excessive or unnecessary medication, will enable you to progress your activity each day to improve your muscle tone and movement, deep breathing, digestion, circulation and your body's ability to heal itself. [place]AR[place] reviewed for past two years. (Intermittent opiates RX filled) [x] Patient's OARRS report (PDMP) have been reviewed. Pain Management: n/a Plan discussed with patient who appears to understand and agrees. Subjective: Chief Complaint: Acute on chronic Abdominal pain We have been asked to see this 39 y.o. female for acute on chronic abdominal pain. Pt with hx of multiple abdominal surgeries, including open recurrent incisional hernia repair w/ mesh, WAI, TAR, panniculectomy, removal of infarcted cecal epiploic appendage on 08/07/24. Pt with multiple ED visits for abdominal pain, last seen in [facility] 04/29 . She was admitted 03/09 with intractable abdominal pain, and again 05/09-05/11. Pt was seen by APS at that time and recommendations made. She presented to [facility] ED vis EMS on 05/20 with c/o sudden worsening abdominal pain during bowel movement. Pt seen by general surgery, no acute surgical intervention planned. Recommendations for NG, however patient refuses. Reviewed CT abdomen/pelvis 05/20- There is a postsurgical small bowel anastomosis at the midline, similar to 05/09/2025, with eccentric circumferential wall thickening which could represent partial intussusception versus mass and/or inflammation. If pain persists, consider follow-up with GI. (small bowel fluoroscopic exam 05/10/2025 demonstrated no obstruction). 2. Ventral hernia repair changes with multiple ventral fatty hernias. 3. Nonobstructive right renal calculus. No hydronephrosis NAEON, no pages. On arrival, pt coming from the bathroom. She is crying, states she is in pain. She expresses she has a poor quality of life d/t chronic abdominal pain. C/o worsening anxiety d/t increased pain. Active listening and support provided. We discussed psychiatry consult for assistance with management of anxiety/depression, she agrees with plan. She c/o periumbilical pain. Feels oxycodone has helped in the past. She has some nausea, denies recent emesis. (+) BM. Currently NPO except medications. Pt states she has a referral for outpatient pain management in June. Pt is realistic about pain control: Not all pain will be taken away, but pain should be tolerable/manageable with current regimen. Pt instructed to have staff page APS if pain becomes uncontrolled when utilizing present regimen. Pt agreeable, denies further questions. PMH reviewed below Pain Location: Abdomen Aggravating Factors: remains constant Sedation score: 1: Awake and alert Pain Severity: severe Pain Quality: pain medication Alleviating Factors: Rest/Pain medications The patient's medical history and physical assessment, medications, allergies, patient's current medical condition, imaging, and labs were reviewed as part of this consultation. [x] Patient's Medications have been reviewed. Review of Systems Constitutional: Negative for chills and fever. HENT: Negative for trouble swallowing. Eyes: Negative for visual disturbance. Respiratory: Negative for shortness of breath. Cardiovascular: Negative for chest pain. Gastrointestinal: Positive for abdominal pain and nausea (intermittent). Negative for blood in stool and vomiting. Musculoskeletal: Negative for arthralgias. Neurological: Negative for dizziness and headaches. Psychiatric/Behavioral: Negative for confusion. The patient is nervous/anxious. Physical Exam Vitals and nursing note reviewed. Constitutional: General: She is not in acute distress. Appearance: Normal appearance. HENT: Head: Normocephalic and atraumatic. Eyes: General: Vision grossly intact. Cardiovascular: Rate and Rhythm: Normal rate. Pulmonary: Effort: Pulmonary effort is normal. Abdominal: General: There is no distension. Palpations: Abdomen is soft. Tenderness: There is abdominal tenderness. There is no guarding. Musculoskeletal: General: Normal range of motion. Skin: General: Skin is warm and dry. Neurological: Mental Status: She is alert and oriented to person, place, and time. Psychiatric: Mood and Affect: Mood normal. Affect is tearful. Behavior: Behavior normal. Tobacco Use History[1] Social History Substance and Sexual Activity Alcohol Use Not Currently Social History Substance and Sexual Activity Drug Use Yes Frequency: 2.0 times per week Types: Marijuana Comment: edibles Objective Findings: Height: 160 cm (5' 3) Weight: 99.8 kg (220 lb) BMI (Calculated): 38.98 Vital signs: Blood pressure 124/74, pulse 66, temperature 36.6 C (97.9 F), temperature source Temporal, resp. rate 18, height 1.6 m (5' 3), weight 99.8 kg (220 lb), SpO2 98%. Allergies: Ketorolac, Ondansetron, and Seasonal Medical History[2] Surgical History[3] Family History[4] Problem List[5] PAGING: The Acute Pain Service providers are available exclusively via [employer]. APS does not utilize pagers. 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 Partial obstruction of small intestine (HCC) 06/13/2024 [3] Past Surgical History: Procedure Laterality Date APPENDECTOMY BILIOPANCREATIC DIVERSION 10/23/2008 Sherie @ [facility]; janel-en-y duodenojejunostomy for bile reflux CHOLECYSTECTOMY 02/2007 lap COLONOSCOPY N/A 11/29/2023 [facility]; repeat in 11/2033 EXPLORATORY LAPAROTOMY 06/10/2019 Veronica @ [facility]; ex lap, WAI INCISION AND DRAINAGE OF WOUND 08/09/2013 [facility]; I&D of surgical incision of LLQ INCISIONAL HERNIA REPAIR 10/20/2017 [facility]; open primary repair INCISIONAL HERNIA REPAIR 07/12/2018 [facility]; open w/ mesh INCISIONAL HERNIA REPAIR 09/26/2018 [facility]; lap w/ mesh INCISIONAL HERNIA REPAIR 03/11/2020 [facility]; repair w/ mesh excision, mesh replacement ([facility] Mesh w/ Echo), WAI INCISIONAL HERNIA REPAIR 07/19/2015 [facility]; open repair w/ mesh INCISIONAL HERNIA REPAIR 08/07/2024 [facility]; an open recurrent repair w/ mesh, WAI, TAR, removal of infarcted cecal epiploic appendage PANNICULECTOMY (HISTORICAL) 08/07/2024 [facility] SOFT TISSUE MASS EXCISION 08/02/2013 [facility]; STM excision of LLQ TONSILLECTOMY [4] Family History Problem Relation Name Age of Onset Hypertension Father Diabetes Father [5] Patient Active Problem List Diagnosis Morbid obesity (HCC) Anxiety Pain Chronic post-traumatic stress disorder (PTSD) Cyclic vomiting syndrome Depression Elevated blood pressure reading without diagnosis of hypertension Gastroesophageal reflux disease Generalized anxiety disorder Headache Hypokalemia due to excessive gastrointestinal loss of potassium Impacted cerumen Injury of foot Injury of right shoulder Menstrual period late Migraine with aura Mixed obsessional thoughts and acts Narcotic drug use Nausea, vomiting, and diarrhea Obesity, Class III, BMI 40-49.9 (morbid obesity) Obstructive sleep apnea syndrome Panic disorder with agoraphobia Psychogenic hyperventilation Recurrent major depressive disorder, in partial remission (HCC) Sepsis (HCC) Shoulder pain Sinus tachycardia by electrocardiography Social phobia Strain of knee Syncope Type 2 diabetes mellitus (HCC) Intractable abdominal pain Periumbilical abdominal pain Cosigned by Celina Shaver DO at 05/24/2025 1:55 PM EDT Images from the original note were not included. Department of General Surgery Surgical Service - Advanced Laparoscopic and Bariatric Surgery Resident Consult Note 05/20/2025 CHIEF COMPLAINT: Chief Complaint Patient presents with Abdominal Pain Patient from work via EMS due to sudden severe abdominal pain. Patient has a history of hernias and has felt sore since new hernia formation. Patient stated she was on the toilet and felt she had to have a bowel movement. Patient stated no bowel movement occurred however a sharp, sudden pain covered her upper umbilical region. Patient described a 10/10 pain. Reason for Consult: Nausea, vomiting, abdominal pain with concerns for developing small bowel obstruction HISTORY OF PRESENT ILLNESS: Mel Wall is a 39 y.o. female with significant past medical history of anxiety, bipolar, depression, obesity, history of bile reflux for which she had biliopancreatic diversion procedure in 2008, history of extensive ventral wall incisional hernias for which she has had multiple procedures containing mesh, who presents with abdominal pain, nausea and vomiting. Surgery was consulted for evaluation of concerns for inflammation versus intussusception at her jejunojejunostomy concerning for developing obstruction. Patient states she has had a day history of abdominal pain that was worsening and persistent throughout the day. She additionally had nausea and episodes of vomiting. She denies fever/chills. She states she has not had bowel function since this time. She has continued to void without difficulty. She states she had a previous episode of this a few weeks ago that was treated with nonoperative management. She has plans for abdominal wall reconstruction with Dr. Taylor in the future but planning for likely a year from now per patient's retelling. Discussed with patient she will likely require a nasogastric tube for decompression. With her multiple abdominal surgeries she has had these tubes before and would like to avoid it at all costs, she would like to deny at this time understanding the risk of aspiration but would consider NG tube placement if continuing to have worsening nausea and vomiting. She does not take any blood thinning medications. She has abdominal surgical history with multiple ventral incisional hernia repairs the last being with Dr. Taylor 08/02 where she had open recurrent repair with mesh, lysis of adhesions, TAR, and removal of infarcted cecal epiploic appendage as well as panniculectomy. Patient also has abdominal surgical history of cholecystectomy and appendectomy. On evaluation patient was afebrile, heart rate ranging between 92-101, normotensive, saturating well on room air. Labs reviewed significant for: Being without leukocytosis, hemoglobin stable, mild hypokalemia with a potassium of 3.1, otherwise no significant electrolyte abnormalities on CMP. imaging demonstrated inflammation versus possible intussusception at the jejunojejunostomy and dilation of the bowel proximal to this region with mild dilation of her stomach concerning for likely partial obstruction at the JJ resulting in developing small bowel obstruction on CT abdomen pelvis. Medical History[1] Surgical History[2] Medications Prior to Admission: Medications Ordered Prior to Encounter[3] Allergies: Ketorolac, Ondansetron, and Seasonal Social History[4] Family History[5] REVIEW OF SYSTEMS: Review of Systems Constitutional: Negative for chills, fatigue and fever. Respiratory: Negative for shortness of breath. Cardiovascular: Negative for chest pain. Gastrointestinal: Positive for abdominal distention, abdominal pain, nausea and vomiting. Skin: Negative for color change and wound. Neurological: Negative for weakness. Psychiatric/Behavioral: Negative for agitation and confusion. PHYSICAL EXAM: Vitals: 05/20/25 1805 BP: (!) 143/114 Pulse: 101 Resp: 13 Temp: SpO2: 98% I/O last 3 completed shifts: In: 1000 (10 mL/kg) [IV Piggyback:1000] Out: - (0 mL/kg) Weight: 99.8 kg CONSTITUTIONAL: awake, alert, cooperative, no apparent distress NECK: Supple, symmetrical, trachea midline, no adenopathy LUNGS: No increased work of breathing, good air exchange CARDIOVASCULAR: Mildly tachycardic ABDOMEN: Soft, mildly distended, mildly tender at abdominal midline over the area where there is concern for JJ inflammation, reducible ventral incisional hernia that is fat-containing, no overlying skin changes, no erythema, no induration, well-healed midline laparotomy incision CHEST: no masses palpated GENITAL/URINARY: Not examined MUSCULOSKELETAL: There is no redness, warmth, or swelling of the joints. Full range of motion noted. NEUROLOGIC: Awake, alert, oriented to name, place and time. SKIN: normal skin color, texture, no redness, warmth, or swelling DATA: CBC: Lab Results Component Value Date WBC 8.4 05/20/2025 RBC 4.21 05/20/2025 HGB 13.0 05/20/2025 HCT 39.1 05/20/2025 MCV 92.9 05/20/2025 MCH 30.9 05/20/2025 MCHC 33.2 05/20/2025 RDW 12.5 05/20/2025 PLT 239 05/20/2025 MPV 8.8 (L) 05/20/2025 BMP: Lab Results Component Value Date NA 134 (L) 05/20/2025 K 3.1 (L) 05/20/2025 CL 105 05/20/2025 CO2 18 (L) 05/20/2025 BUN 11 05/20/2025 CREATININE 0.66 05/20/2025 CALCIUM 8.9 05/20/2025 GLUCOSE 116 (H) 05/20/2025 Hepatic Function Panel: Lab Results Component Value Date ALKPHOS 37 (L) 05/20/2025 ALT 15 05/20/2025 AST 16 05/20/2025 PROT 6.8 05/20/2025 BILITOT 0.3 05/20/2025 PT/INR: No results found for: PROTIME, INR Troponin: No results found for: TROPONINI LIPASE: Lab Results Component Value Date LIPASE 29 05/20/2025 IMAGING: CT abdomen pelvis w contrast Narrative: [facility] 1985 [id number] Exam Date/Time: 05/20/2025 17:56 Procedure: CT ABDOMEN PELVIS W CONTRAST Ordering Provider: RATLIFF ANDREW Reason For Exam: ventral hernia, previous repair with mesh Gender: Female Age: 39 years History: ventral hernia, previous repair with mesh Exam: CT ABDOMEN PELVIS W CONTRAST Indication: Severe abdominal pain upper umbilical region Scan Parameters: Multiple axial CT images were obtained of the abdomen and pelvis. Coronal and sagittal reconstructions were reviewed as well. ALARA protocol. Dose reduction was employed with automated exposure control. Contrast: 75 mL of Isovue-370 IV contrast Comparison: CT abdomen and pelvis 05/09/2025 FINDINGS: The lung bases are clear. The heart is not enlarged. There are no atherosclerotic calcifications along the aorta or branches. There is a stable 1.3 cm sclerotic focus in T9, unchanged from 09/13/2023. The gallbladder is absent. Mild intrahepatic and extrahepatic biliary duct distention likely sequela from cholecystectomy. The liver, pancreas, spleen, and adrenal glands are within normal limits. There is mild nodularity of the adrenal glands, unchanged. There is no hydronephrosis. Punctate right renal calculi are present. Bilateral renal cysts appear similar to prior exam, no follow-up required. The bladder contour is normal, no bladder wall thickening. Pelvic phleboliths are present. The uterus is anteverted and approximates the ventral abdominal wall. Bilateral tubal ligation clips noted. Limited evaluation of the ovaries with follicular cystic changes. The appendix is not visualized, no CT evidence for appendicitis. There is a small sliding-type hiatal hernia. There is a postsurgical small bowel anastomosis at the midline with eccentric circumferential wall thickening which could represent partial intussusception versus mass and/or inflammation, also noted on prior exam (small bowel fluoroscopic exam 05/10/2025 demonstrated no obstruction). There is no free air and no free fluid. Ventral hernia repair changes. There is diastases of the abdominal rectus muscle at the midline with small fatty ventral hernias. There is no adenopathy. Impression: 1. There is a postsurgical small bowel anastomosis at the midline, similar to 05/09/2025, with eccentric circumferential wall thickening which could represent partial intussusception versus mass and/or inflammation. If pain persists, consider follow-up with GI. (small bowel fluoroscopic exam 05/10/2025 demonstrated no obstruction). 2. Ventral hernia repair changes with multiple ventral fatty hernias. 3. Nonobstructive right renal calculus. No hydronephrosis. 4. Additional findings, as above. Report Dictated on Electronically Signed By: Michelle Velazquez MD Electronically Signed Date/Time: 05/20/2025 6:20 PM EDT ASSESSMENT AND PLAN: This is a 39 y.o. female with concerns for developing small bowel obstruction at her jejunojejunostomy with history of biliopancreatic diversion for bile reflux - Recommend medical admission - No acute surgical intervention indicated at this time - Will plan can to conservatively managed with nasogastric decompression, patient denying at this time despite risks of aspiration, states she will consider NGT placement if worsening nausea and vomiting - Bowel rest - N.p.o. with LR to 100 - As needed pain and nausea control - Serial abdominal exams - Likely interval small bowel follow-through this admission - Discussed with patient that we would like to try and avoid surgery unless absolutely necessary given her multiple history of abdominal wall procedures containing mesh, she is agreeable to this plan, will continue to evaluate and monitor Patient discussed with attending, Dr. Taylor. Kelsey Lux MD General Surgery Resident 05/20/25 7:55 PM This note may have been dictated using [employer] / [employer] Practice Edition 2.6 and/or [employer] Voice Recognition Feature. The document was proofread; however, unrecognized voice recognition wood stock blank handler errors may be present. ATTESTATION The patient was seen and examined. I have reviewed the patients presentation, histories, imaging and serology studies. I agree with the above assessment and plan. Ab: Soft, Non-distended, non-tender Patient was seen and examined this morning. Patient states that her pain is much better controlled compared to yesterday. Her CT scan from yesterday was personally reviewed and interpreted. Findings appear to be consistent with prior CT scan. I cannot fully appreciate an intussusception of her previous jejunojejunostomy, it appears as though this is a large anastomosis that is decompressed rather than a true intussusception with a target sign. These findings appear to be consistent with a jejunojejunostomy from prior bariatric surgery. Patient denies obstructive symptoms. She does however state that the pain is causing her to become nauseous. Patient was seen earlier this month and had a normal small bowel follow-through. CT scan images and small bowel follow-through were reviewed with radiology who agree that this likely represents a decompressed anastomosis rather than a pathologic intussusception. Based on these findings and her clinical symptoms, I do not recommend operative intervention at this time. The patient is likely having an acute exacerbation of pain from her recurrent incisional hernia. This pain will likely fluctuate as her absorbable mesh dissolves. I do not recommend proceeding with operative therapy on this hernia until we are 12 months from the previous surgery. Patient is understanding and agreeable to this. Additionally, patient states that she is established with outpatient pain management with her appointment scheduled for the end of June. Given her previous issues with pain control from her last surgery and high MME's of oxycodone, I would like her to be well-established prior to proceeding with operative intervention. Patient understands this and is also agreeable to this as well. Patient is scheduled to see me in 2 weeks. Thank for allowing me to participate in the care of this patient, please call with any questions, concerns or if the patient status changes. --------- I personally performed the evaluation and management of Mel Wall in the development of a treatment plan for this patient. I personally interviewed the patient and performed an individual physical examination. In addition, I discussed the patient's condition and treatment options with them. I have also reviewed and agree with the past medical, family and social history unless otherwise noted. All of the patient's questions were answered. I personally spent 55 minutes of time between the face to face encounter, physical exam, reviewing the medical history, coordinating the patient's care, counseling/educating the patient, ordering prescriptions/medications/tests/proc edures, interpreting results and documenting clinical information in the patient's electronic health record on the day of the encounter. 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 Partial obstruction of small intestine (HCC) 06/13/2024 [2] Past Surgical History: Procedure Laterality Date APPENDECTOMY BILIOPANCREATIC DIVERSION 10/23/2008 Sherie @ [place]; janel-en-y duodenojejunostomy for bile reflux CHOLECYSTECTOMY 02/2007 lap COLONOSCOPY N/A 11/29/2023 [facility]; repeat in 11/2033 EXPLORATORY LAPAROTOMY 06/10/2019 Veronica @ [facility]; ex lap, WAI INCISION AND DRAINAGE OF WOUND 08/09/2013 [facility]; I&D of surgical incision of LLQ INCISIONAL HERNIA REPAIR 10/20/2017 [facility]; open primary repair INCISIONAL HERNIA REPAIR 07/12/2018 [facility]; open w/ mesh INCISIONAL HERNIA REPAIR 09/26/2018 [facility]; lap w/ mesh INCISIONAL HERNIA REPAIR 03/11/2020 [facility]; repair w/ mesh excision, mesh replacement ([facility]ent[facility] Mesh w/ Echo), WAI INCISIONAL HERNIA REPAIR 07/19/2015 [facility]; open repair w/ mesh INCISIONAL HERNIA REPAIR 08/07/2024 [facility]; an open recurrent repair w/ mesh, WAI, TAR, removal of infarcted cecal epiploic appendage PANNICULECTOMY (HISTORICAL) 08/07/2024 [facility] SOFT TISSUE MASS EXCISION 08/02/2013 [facility]; ES excision of LLQ TONSILLECTOMY [3] No current facility-administered medications for this encounter. Current Outpatient Medications Medication Sig Dispense Refill acetaminophen (Tylenol) 325 MG tablet Take 650 mg by mouth every 6 hours as needed for mild pain (1-3), moderate pain (4-6), headaches or fever. albuterol 108 (90 Base) MCG/ACT inhaler Inhale 2 puffs every 4 hours as needed for wheezing or shortness of breath. (Patient not taking: Reported on 11/20/2024) FLUoxetine (PROzac) 20 MG capsule Take 20 mg by mouth daily. hydrOXYzine HCl (Atarax) 25 MG tablet Take 1 tablet (25 mg) by mouth every 8 hours as needed for itching for up to 7 days. 21 tablet 0 [4] Social History Socioeconomic History Marital status: Tobacco Use Smoking status: Former Types: Cigarettes Smokeless tobacco: Never Substance and Sexual Activity Alcohol use: Not Currently Drug use: Yes Frequency: 2.0 times per week Types: Marijuana Comment: edibles Sexual activity: Not Currently Social Drivers of Health Financial Resource Strain: High Risk (04/24/2024) Overall Financial Resource Strain (CARDIA) Difficulty of Paying Living Expenses: Very hard Food Insecurity: Patient Declined (04/26/2024) Hunger Vital Sign Worried About Running Out of Food in the Last Year: Patient declined Ran Out of Food in the Last Year: Patient declined Recent Concern: Food Insecurity - Food Insecurity Present (04/24/2024) Hunger Vital Sign Worried About Running Out of Food in the Last Year: Often true Ran Out of Food in the Last Year: Often true Transportation Needs: Patient Declined (04/26/2024) PRAPARE - Transportation Lack of Transportation (Medical): Patient declined Lack of Transportation (Non-Medical): Patient declined Recent Concern: Transportation Needs - Unmet Transportation Needs (04/24/2024) PRAPARE - Transportation Lack of Transportation (Medical): Yes Lack of Transportation (Non-Medical): Yes Physical Activity: Sufficiently Active (04/24/2024) Exercise Vital Sign Days of Exercise per Week: 7 days Minutes of Exercise per Session: 60 min Stress: Stress Concern Present (04/24/2024) [employer] [place] [employer] - Occupational Stress Questionnaire Feeling of Stress : Very much Social Connections: Moderately Integrated (04/24/2024) Social Connection and Isolation Panel [NHANES] Frequency of Communication with Friends and Family: Twice a week Frequency of Social Gatherings with Friends and Family: Once a week Attends [employer] Services: More than 4 times per year Active Member of Clubs or Organizations: No Attends Club or Organization Meetings: More than 4 times per year Marital Status: Intimate Partner Violence: Not At Risk (05/10/2025) Humiliation, Afraid, Rape, and Kick questionnaire Fear of Current or Ex-Partner: No Emotionally Abused: No Physically Abused: No Sexually Abused: No Housing Stability: Unknown (04/26/2024) Housing Stability Vital Sign Unable to Pay for Housing in the Last Year: Patient declined Number of Times Moved in the Last Year: 1 Homeless in the Last Year: No Recent Concern: Housing Stability - High Risk (04/24/2024) Housing Stability Vital Sign Unable to Pay for Housing in the Last Year: Yes Number of Times Moved in the Last Year: 1 Homeless in the Last Year: No [5] Family History Problem Relation Name Age of Onset Hypertension Father Diabetes Father documented in this encounter [facility] 05-22-2025 Note Patient states she q uit smoking in 2020, no history of vaping or smokeless tobacco. Smoking cessation counseling not indicated. [facility] 05-22-2025 Consult note Associated Order (s): IP CONSULT TO ANESTHESIOLOGY - ACUTE PAIN SERVICE Images from the original note were not included. PAGING: The Acute Pain Service providers are available exclusively via [employer] SECURE CHAT. APS does not utilize pagers. 05/22/2025 Lab Results Component Value Date CREATININE 0.55 (L) 05/22/2025 AST 16 05/20/2025 ALT 15 05/20/2025 Discharge Recommendations: Patient to follow up with outpatient chronic pain. Pain Management Adjuvants: 0700 --> 0700 05/21 Scheduled APAP PRN Hydromorphone IV 5 mg Assessment / Pain Management Plan: Agree with primary, limit narcotics if possible d/t possible SBO. Utilize non opioid adjuvants to manage pain, as opioids can slow bowel motility and possibly worsen obstruction. Recommendations made, will sign off at this time. Thank you for inviting us to participate in the care of this patient. Please re consult our service if patient's pain worsens despite recommendations, or pt requires surgical intervention. Acute on chronic Abdominal pain Multimodal pain regimen: This patient is under the care of the Acute Pain Service for postop pain management. Please do not alter pain regimen without speaking to an APS provider. Providers are available via SecureChat 02/05, thank you. BLOCK: n/a Recommend schedule Ofirmev ATC Recommend lidoderm patch X2- cut and place where needed. Continue IV Hydromorphone 0.5 mg - 1 mg IVP q4h prn moderate to severe breakthrough pain while work up is in place. Wean as patient able to tolerate diet. Limit doses if possible. Recommend IV robaxin 1,000 mg TID PRN for spasms, do not administer longer than 3 consecutive days. If patient tolerating PO, recommend Oxycodone to 5-10 mg Q 4 -6hours PRN while work up is in progress. Patient might benefit from PO ketamine, she has hx of multiple surgeries, exposure to opioids. Continue Naloxone 0.4 mg IVP prn opioid reversal. PRN if respiratory rate is less than 6/min and patient is difficult to arouse then notify physician STAT. Mix 9 mL of sodium chloride 0.9% with 0.4 mg (1 mL) of naloxone (NARCAN) in 10 mL syringe. (Note: dilution is 0.04 mg/mL) Give 0.08 mg (2 mL of special dilution), slow IV push, repeat up to 0.4 mg (10 mL) or until patient is responsive to physical stimulation and respiratory rate is equal to or greater than 6 breaths/min. Continue to observe, if no response within 3 minutes of administration of 0.4 mg (10 mL) total, repeat dose (0.4 mg as administered previously). Concerns for developing small bowel obstruction at her jejunojejunostomy with history of biliopancreatic diversion for bile reflux No acute surgical intervention at this time. Bowel rest General surgery following, recommended NG however patient refused See #1 Bipolar Affective Pt very tearful on exam, states she has poor quality of life. Discussed consult to psychiatry for assistance, pt agrees. Appreciate assistance. Constipation At risk for opioid induced constipation Patient currently receiving opioids for pain management necessitating a bowel regimen. Recommend initiating scheduled Sennakot-S 8.6/50mg, 1 tablet PO BID. Would also recommend Milk of Magnesia 400mg/5ml, administer 30mL by mouth daily PRN. Opioid Use, Acute on Chronic Reviewed and educated patient on responsible use of opioids: , it can be normal to experience pain. If it is mild and you can move about without great difficulty or discomfort, you may not need to take pain medication. It is very important to take your pain medication only as needed. Avoiding excessive or unnecessary medication, will enable you to progress your activity each day to improve your muscle tone and movement, deep breathing, digestion, circulation and your body's ability to heal itself. OARRS reviewed for past two years. (Intermittent opiates RX filled) [x] Patient's OARRS report (PDMP) have been reviewed. Pain Management: n/a Plan discussed with patient who appears to understand and agrees. Subjective: Chief Complaint: Acute on chronic Abdominal pain We have been asked to see this 39 y.o. female for acute on chronic abdominal pain. Pt with hx of multiple abdominal surgeries, including open recurrent incisional hernia repair w/ mesh, WAI, TAR, panniculectomy, removal of infarcted cecal epiploic appendage on 08/07/24. Pt with multiple ED visits for abdominal pain, last seen in [place] [facility] 04/29 . She was admitted 03/09 with intractable abdominal pain, and again 05/09-05/11. Pt was seen by APS at that time and recommendations made. She presented to [facility] ED vis EMS on 05/20 with c/o sudden worsening abdominal pain during bowel movement. Pt seen by general surgery, no acute surgical intervention planned. Recommendations for NG, however patient refuses. Reviewed CT abdomen/pelvis 05/20- There is a postsurgical small bowel anastomosis at the midline, similar to 05/09/2025, with eccentric circumferential wall thickening which could represent partial intussusception versus mass and/or inflammation. If pain persists, consider follow-up with GI. (small bowel fluoroscopic exam 05/10/2025 demonstrated no obstruction). 2. Ventral hernia repair changes with multiple ventral fatty hernias. 3. Nonobstructive right renal calculus. No hydronephrosis NAEON, no pages. On arrival, pt coming from the bathroom. She is crying, states she is in pain. She expresses she has a poor quality of life d/t chronic abdominal pain. C/o worsening anxiety d/t increased pain. Active listening and support provided. We discussed psychiatry consult for assistance with management of anxiety/depression, she agrees with plan. She c/o periumbilical pain. Feels oxycodone has helped in the past. She has some nausea, denies recent emesis. (+) BM. Currently NPO except medications. Pt states she has a referral for outpatient pain management in June. Pt is realistic about pain control: Not all pain will be taken away, but pain should be tolerable/manageable with current regimen. Pt instructed to have staff page APS if pain becomes uncontrolled when utilizing present regimen. Pt agreeable, denies further questions. PMH reviewed below Pain Location: Abdomen Aggravating Factors: remains constant Sedation score: 1: Awake and alert Pain Severity: severe Pain Quality: pain medication Alleviating Factors: Rest/Pain medications The patient's medical history and physical assessment, medications, allergies, patient's current medical condition, imaging, and labs were reviewed as part of this consultation. [x] Patient's Medications have been reviewed. Review of Systems Constitutional: Negative for chills and fever. HENT: Negative for trouble swallowing. Eyes: Negative for visual disturbance. Respiratory: Negative for shortness of breath. Cardiovascular: Negative for chest pain. Gastrointestinal: Positive for abdominal pain and nausea (intermittent). Negative for blood in stool and vomiting. Musculoskeletal: Negative for arthralgias. Neurological: Negative for dizziness and headaches. Psychiatric/Behavioral: Negative for confusion. The patient is nervous/anxious. Physical Exam Vitals and nursing note reviewed. Constitutional: General: She is not in acute distress. Appearance: Normal appearance. HENT: Head: Normocephalic and atraumatic. Eyes: General: Vision grossly intact. Cardiovascular: Rate and Rhythm: Normal rate. Pulmonary: Effort: Pulmonary effort is normal. Abdominal: General: There is no distension. Palpations: Abdomen is soft. Tenderness: There is abdominal tenderness. There is no guarding. Musculoskeletal: General: Normal range of motion. Skin: General: Skin is warm and dry. Neurological: Mental Status: She is alert and oriented to person, place, and time. Psychiatric: Mood and Affect: Mood normal. Affect is tearful. Behavior: Behavior normal. Tobacco Use History[1] Social History Substance and Sexual Activity Alcohol Use Not Currently Social History Substance and Sexual Activity Drug Use Yes Frequency: 2.0 times per week Types: Marijuana Comment: edibles Objective Findings: Height: 160 cm (5' 3) Weight: 99.8 kg (220 lb) BMI (Calculated): 38.98 Vital signs: Blood pressure 124/74, pulse 66, temperature 36.6 C (97.9 F), temperature source Temporal, resp. rate 18, height 1.6 m (5' 3), weight 99.8 kg (220 lb), SpO2 98%. Allergies: Ketorolac, Ondansetron, and Seasonal Medical History[2] Surgical History[3] Family History[4] Problem List[5] PAGING: The Acute Pain Service providers are available exclusively via [employer] SECURE CHAT. APS does not utilize pagers. 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 Partial obstruction of small intestine (HCC) 06/13/2024 [3] Past Surgical History: Procedure Laterality Date APPENDECTOMY BILIOPANCREATIC DIVERSION 10/23/2008 She[facility] @ [place]; janel-en-y duodenojejunostomy for bile reflux CHOLECYSTECTOMY 02/2007 lap COLONOSCOPY N/A 11/29/2023 [facility]; repeat in 11/2033 EXPLORATORY LAPAROTOMY 06/10/2019 Veronica @ [facility]; ex lap, WAI INCISION AND DRAINAGE OF WOUND 08/09/2013 [place]; I&D of surgical incision of LLQ INCISIONAL HERNIA REPAIR 10/20/2017 [facility]; open primary repair INCISIONAL HERNIA REPAIR 07/12/2018 [place]; open w/ mesh INCISIONAL HERNIA REPAIR 09/26/2018 [facility]; lap w/ mesh INCISIONAL HERNIA REPAIR 03/11/2020 [facility]; repair w/ mesh excision, mesh replacement ([facility] Mesh w/ Echo), WAI INCISIONAL HERNIA REPAIR 07/19/2015 [facility]; open repair w/ mesh INCISIONAL HERNIA REPAIR 08/07/2024 [facility]; an open recurrent repair w/ mesh, WAI, TAR, removal of infarcted cecal epiploic appendage PANNICULECTOMY (HISTORICAL) 08/07/2024 [facility] SOFT TISSUE MASS EXCISION 08/02/2013 [facility]; STM excision of LLQ TONSILLECTOMY [4] Family History Problem Relation Name Age of Onset Hypertension Father Diabetes Father [5] Patient Active Problem List Diagnosis Morbid obesity (HCC) Anxiety Pain Chronic post-traumatic stress disorder (PTSD) Cyclic vomiting syndrome Depression Elevated blood pressure reading without diagnosis of hypertension Gastroesophageal reflux disease Generalized anxiety disorder Headache Hypokalemia due to excessive gastrointestinal loss of potassium Impacted cerumen Injury of foot Injury of right shoulder Menstrual period late Migraine with aura Mixed obsessional thoughts and acts Narcotic drug use Nausea, vomiting, and diarrhea Obesity, Class III, BMI 40-49.9 (morbid obesity) Obstructive sleep apnea syndrome Panic disorder with agoraphobia Psychogenic hyperventilation Recurrent major depressive disorder, in partial remission (HCC) Sepsis (HCC) Shoulder pain Sinus tachycardia by electrocardiography Social phobia Strain of knee Syncope Type 2 diabetes mellitus (HCC) Intractable abdominal pain Periumbilical abdominal pain Cosigned by Celina Shaver DO at 05/24/2025 1:55 PM EDT [facility] Phone: 05-22-2025 Progress note Formatting of t his note might be different from the original. Care Management Progress Note Short Medical why still here: monitoring bowel function- NPO- pain management consulted Planned Discharge Disposition: Home or Self Care Barriers/Today we still Wait: Clinical stability Length of Stay (Days): 1 GMLOS: No GMLOS Documented [facility] 05-22-2025 Miscellaneous Notes Care Management Progress Note Short Medical why still here: monitoring bowel function- NPO- pain management consulted Planned Discharge Disposition: Home or Self Care Barriers/Today we still Wait: Clinical stability Length of Stay (Days): 1 GMLOS: No GMLOS Documented Care Management Progress Note Short Medical why still here: monitor bowel function- pain and nausea control- currently NPO Planned Discharge Disposition: Home or Self Care Barriers/Today we still Wait: Clinical stability Length of Stay (Days): 1 GMLOS: No GMLOS Documented documented in this encounter [facility] 05-21-2025 Progress note Formatting of t his note might be different from the original. Care Management Progress Note Short Medical why still here: monitor bowel function- pain and nausea control- currently NPO Planned Discharge Disposition: Home or Self Care Barriers/Today we still Wait: Clinical stability Length of Stay (Days): 1 GMLOS: No GMLOS Documented [facility] 05-21-2025 Telephone encounter Note Please review and complete. Forms will be placed in your inbox. Thank you [facility] 05-21-2025 Miscellaneous Notes Please review and complete. Forms will be placed in your inbox. Thank you documented in this encounter [facility] 05-20-2025 Emergency department Note Patient transfer to inpatient room. Patient calm and responsive to staff. Breathing is even and unlabored, no sx of distress noted at this time. [facility] 05-20-2025 Emergency department Note Patient transfer to inpatient room. Patient calm and responsive to staff. Breathing is even and unlabored, no sx of distress noted at this time. EMERGENCY DEPARTMENT ENCOUNTER Pt Name: Mel Wall Birthdate 1985 Date of evaluation: 05/20/2025 ED Provider: ROSE EDWARD DO CHIEF COMPLAINT Chief Complaint Patient presents with Abdominal Pain Patient from work via EMS due to sudden severe abdominal pain. Patient has a history of hernias and has felt sore since new hernia formation. Patient stated she was on the toilet and felt she had to have a bowel movement. Patient stated no bowel movement occurred however a sharp, sudden pain covered her upper umbilical region. Patient described a 10/10 pain. HISTORY OF PRESENT ILLNESS (Location/Symptom, Timing/Onset, Context/Setting, Quality, Duration, Modifying Factors, Severity) Note limiting factors. I wore appropriate PPE for the entirety of this encounter. HPI Mel Wall is a 39 y.o. who presents to the emergency department for sudden severe abdominal pain that began today at work. She states that the pain began around 3 PM. Has a history of abdominal hernias and states that this hernia she presents with today had previously been repaired with mesh. She has had a few episodes of emesis however denies any fevers, chest pain or shortness of breath. Patient very shaky when I enter the room and room clearly in severe pain. Nursing Notes were reviewed. Limitations to history: None Outside historians: None REVIEW OF SYSTEMS Review of Systems Pertinent positives and negatives as per HPI. PAST MEDICAL HISTORY Medical History[1] SURGICAL HISTORY Surgical History[2] CURRENT MEDICATIONS Previous Medications ACETAMINOPHEN (TYLENOL) 325 MG TABLET Take 650 mg by mouth every 6 hours as needed for mild pain (1-3), moderate pain (4-6), headaches or fever. ALBUTEROL 108 (90 BASE) MCG/ACT INHALER Inhale 2 puffs every 4 hours as needed for wheezing or shortness of breath. FLUOXETINE (PROZAC) 20 MG CAPSULE Take 20 mg by mouth daily. HYDROXYZINE HCL (ATARAX) 25 MG TABLET Take 1 tablet (25 mg) by mouth every 8 hours as needed for itching for up to 7 days. ALLERGIES Ketorolac, Ondansetron, and Seasonal FAMILY HISTORY Family History[3] SOCIAL HISTORY Social History[4] SCREENINGS PHYSICAL EXAM ED Triage Vitals [05/20/25 1604] Temp Heart Rate Resp BP 36.9 C (98.5 F) 92 19 123/79 SpO2 Temp Source Heart Rate Source Patient Position 99 % Oral Monitor -- BP Location FiO2 (%) -- -- Physical Exam Constitutional: General: She is in acute distress. Appearance: Normal appearance. HENT: Head: Normocephalic and atraumatic. Right Ear: External ear normal. Left Ear: External ear normal. Nose: No congestion or rhinorrhea. Mouth/Throat: Mouth: Mucous membranes are moist. Pharynx: Oropharynx is clear. Eyes: Extraocular Movements: Extraocular movements intact. Pupils: Pupils are equal, round, and reactive to light. Cardiovascular: Rate and Rhythm: Normal rate and regular rhythm. Pulses: Normal pulses. Heart sounds: Normal heart sounds. Pulmonary: Effort: Pulmonary effort is normal. No respiratory distress. Breath sounds: Normal breath sounds. Abdominal: General: Abdomen is flat. There is no distension. Palpations: Abdomen is soft. Tenderness: There is abdominal tenderness in the periumbilical area and suprapubic area. Hernia: A hernia is present. Hernia is present in the ventral area. Musculoskeletal: General: No swelling or deformity. Normal range of motion. Cervical back: Normal range of motion. Skin: General: Skin is warm and dry. Capillary Refill: Capillary refill takes less than 2 seconds. Findings: No rash. Neurological: General: No focal deficit present. Mental Status: She is alert and oriented to person, place, and time. Mental status is at baseline. Psychiatric: Mood and Affect: Mood normal. Behavior: Behavior normal. DIAGNOSTIC RESULTS RADIOLOGY (Per Emergency Physician): Interpretation per the Radiologist below, if available at the time of this note: CT abdomen pelvis w contrast Final Result 1. There is a postsurgical small bowel anastomosis at the midline, similar to 05/09/2025, with eccentric circumferential wall thickening which could represent partial intussusception versus mass and/or inflammation. If pain persists, consider follow-up with GI. (small bowel fluoroscopic exam 05/10/2025 demonstrated no obstruction). 2. Ventral hernia repair changes with multiple ventral fatty hernias. 3. Nonobstructive right renal calculus. No hydronephrosis. 4. Additional findings, as above. Report Dictated on Electronically Signed By: Michelle Velazquez MD Electronically Signed Date/Time: 05/20/2025 6:20 PM EDT LABS: Labs Reviewed COMPREHENSIVE METABOLIC PANEL - Abnormal Result Value SODIUM 134 (*) POTASSIUM 3.1 (*) CHLORIDE 105 CARBON DIOXIDE 18 (*) ANION GAP 11 UREA NITROGEN 11 CREATININE 0.66 GLUCOSE 116 (*) CALCIUM 8.9 AST (SGOT) 16 ALT 15 ALKALINE PHOSPHATASE 37 (*) ALBUMIN 4.1 BILIRUBIN, TOTAL 0.3 TOTAL PROTEIN 6.8 eGFR >90.0 CBC WITH AUTO DIFFERENTIAL - Abnormal Auto WBC 8.4 RBC 4.21 Hemoglobin 13.0 Hematocrit 39.1 MCV 92.9 MCH 30.9 MCHC 33.2 RDW 12.5 Platelets 239 MPV 8.8 (*) nRBC 0.0 Neutrophils Relative 69.4 Lymphocytes Relative 22.3 Monocytes Relative 6.3 Eosinophils Relative 1.1 Basophils Relative 0.4 Immature Grans % 0.5 Neutrophils Absolute 5.9 Lymphocytes Absolute 1.9 Monocytes Absolute 0.5 Eosinophils Absolute 0.1 Basophils Absolute 0.0 Immature Grans Absolute 0.0 COMPLETE URINALYSIS WITH REFLEX TO CULTURE - Normal Color, Urine Light Yellow Clarity, Urine Clear pH, Urine 6.0 Leukocytes, Urine Negative Nitrite, Urine Negative Protein, Urine Negative Glucose, Urine Normal Bilirubin, Urine Negative Ketones, Urine Negative Urobilinogen, Urine Normal Blood, Urine Negative SPECIFIC GRAVITY OF URINE (NUMERIC) 1.019 Narrative: A specimen with <=10 WBC is not consistent with inflammation. This specimen will not reflex to a urine culture. LIPASE - Normal LIPASE 29 HCG QUALITATIVE URINE HCG,URINE QUAL Negative Narrative: is the most common reason for HCG in urine, although choriocarcinoma, hydatidiform mole, and certain nontrophoblastic malignancies also result in detectable urinary HCG levels. Sensitivity = 20mIU/mL. BLOOD TYPE AND SCREEN GEL ABO Grouping A Antibody Screen NEG Rh Type POS All other labs were within normal range or not returned as of this dictation. EMERGENCY DEPARTMENT COURSE and DIFFERENTIAL DIAGNOSIS/MDM: Vitals: Vitals: 05/20/25 1604 05/20/25 1606 05/20/25 1805 BP: 123/79 (!) 143/114 Pulse: 92 101 Resp: 19 13 Temp: 36.9 C (98.5 F) TempSrc: Oral SpO2: 99% 99% 98% Weight: 99.8 kg (220 lb) Height: 1.6 m (5' 3) The patient presented with a chief complaint of severe sudden onset abdominal pain with ventral hernia. The differential diagnosis associated with this patient's presentation includes hernia, hernia with incarceration, hernia with strangulation, other abdominal problem. Our workup consisted of ordering/reviewing labs and imaging. Given morphine for pain. Reglan for nausea. Potassium 3.1 so replenished with 40 mill equivalents. Otherwise CBC, CMP and lipase are all unremarkable. Normal urinalysis. CT abdomen pelvis shows ventral fatty hernias. Also showing partial intussusception. Consulted surgery. Suspicious that patient may be developing obstruction. Has required multiple pain medications and antinausea medications. Other labs are unremarkable including white count, lipase. Patient will be admitted to medicine with peripheral surgery following. Diagnoses as of 05/20/252011 Periumbilical abdominal pain External records reviewed: Inpatient notes multiple ED visits and admissions for generalized abdominal pain. Did have an abdominal wall seroma that had to be ultrasound-guided drained in November. Diagnostics interpreted by me: CT scan(s) as above Discussions with other clinicians: Surgery, medicine Chronic conditions impacting care: Diabetes and previous hernias Social determinants of health affecting care: none ED Medications managed: Medications promethazine (Phenergan) injection 6.25 mg (has no administration in time range) HYDROmorphone (Dilaudid) injection 1 mg (has no administration in time range) morphine injection 8 mg (8 mg IntraVENous Given 05/20/25 1632) sodium chloride 0.9 % bolus 1,000 mL (0 mL IntraVENous Stopped 05/20/25 1725) metoclopramide (Reglan) injection 10 mg (10 mg IntraVENous Given 05/20/25 1632) potassium chloride CR (Klor-Con M10) ER tablet 40 mEq (40 mEq Oral Given 05/20/25 1729) HYDROmorphone (Dilaudid) injection 1 mg (1 mg IntraVENous Given 05/20/25 1727) iopamidol (Isovue-370) 76 % injection 75 mL (75 mL IntraVENous Given 05/20/25 1757) Prescription drugs considered: Pain medication morphine PROCEDURES: Unless otherwise noted below, none Procedures FINAL IMPRESSION 1. Periumbilical abdominal pain DISPOSITION Admit 05/20/2025 08:12:28 PM PATIENT REFERRED TO: No follow-up provider specified. DISCHARGE MEDICATIONS: New Prescriptions No medications on file (Comment: Please note this report has been produced using speech recognition software and may contain errors related to that system including errors in grammar, punctuation, and spelling, as well as words and phrases that may be inappropriate. 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 Partial obstruction of small intestine (HCC) 06/13/2024 [2] Past Surgical History: Procedure Laterality Date APPENDECTOMY BILIOPANCREATIC DIVERSION 10/23/2008 Sherie @ [place]; janel-en-y duodenojejunostomy for bile reflux CHOLECYSTECTOMY 02/2007 lap COLONOSCOPY N/A 11/29/2023 [facility]; repeat in 11/2033 EXPLORATORY LAPAROTOMY 06/10/2019 Veronica @ [facility]; ex lap, WAI INCISION AND DRAINAGE OF WOUND 08/09/2013 [facility]; I&D of surgical incision of LLQ INCISIONAL HERNIA REPAIR 10/20/2017 [facility]; open primary repair INCISIONAL HERNIA REPAIR 07/12/2018 [facility]; open w/ mesh INCISIONAL HERNIA REPAIR 09/26/2018 [place]; lap w/ mesh INCISIONAL HERNIA REPAIR 03/11/2020 [facility]; repair w/ mesh excision, mesh replacement ([facility] St Mesh w/ Echo), WAI INCISIONAL HERNIA REPAIR 07/19/2015 [facility]; open repair w/ mesh INCISIONAL HERNIA REPAIR 08/07/2024 [facility]; an open recurrent repair w/ mesh, WAI, TAR, removal of infarcted cecal epiploic appendage PANNICULECTOMY (HISTORICAL) 08/07/2024 [facility] SOFT TISSUE MASS EXCISION 08/02/2013 [facility]; STM excision of LLQ TONSILLECTOMY [3] Family History Problem Relation Name Age of Onset Hypertension Father Diabetes Father [4] Social History Socioeconomic History Marital status: Tobacco Use Smoking status: Former Types: Cigarettes Smokeless tobacco: Never Substance and Sexual Activity Alcohol use: Not Currently Drug use: Yes Frequency: 2.0 times per week Types: Marijuana Comment: edibles Sexual activity: Not Currently Social Drivers of Health Financial Resource Strain: High Risk (04/24/2024) Overall Financial Resource Strain (CARDIA) Difficulty of Paying Living Expenses: Very hard Food Insecurity: Patient Declined (04/26/2024) Hunger Vital Sign Worried About Running Out of Food in the Last Year: Patient declined Ran Out of Food in the Last Year: Patient declined Recent Concern: Food Insecurity - Food Insecurity Present (04/24/2024) Hunger Vital Sign Worried About Running Out of Food in the Last Year: Often true Ran Out of Food in the Last Year: Often true Transportation Needs: Patient Declined (04/26/2024) PRAPARE - Transportation Lack of Transportation (Medical): Patient declined Lack of Transportation (Non-Medical): Patient declined Recent Concern: Transportation Needs - Unmet Transportation Needs (04/24/2024) PRAPARE - Transportation Lack of Transportation (Medical): Yes Lack of Transportation (Non-Medical): Yes Physical Activity: Sufficiently Active (04/24/2024) Exercise Vital Sign Days of Exercise per Week: 7 days Minutes of Exercise per Session: 60 min Stress: Stress Concern Present (04/24/2024) [employer] - Occupational Stress Questionnaire Feeling of Stress : Very much Social Connections: Moderately Integrated (04/24/2024) Social Connection and Isolation Panel [NHANES] Frequency of Communication with Friends and Family: Twice a week Frequency of Social Gatherings with Friends and Family: Once a week Attends Adventism Services: More than 4 times per year Active Member of Clubs or Organizations: No Attends Club or Organization Meetings: More than 4 times per year Marital Status: Intimate Partner Violence: Not At Risk (05/10/2025) Humiliation, Afraid, Rape, and Kick questionnaire Fear of Current or Ex-Partner: No Emotionally Abused: No Physically Abused: No Sexually Abused: No Housing Stability: Unknown (04/26/2024) Housing Stability Vital Sign Unable to Pay for Housing in the Last Year: Patient declined Number of Times Moved in the Last Year: 1 Homeless in the Last Year: No Recent Concern: Housing Stability - High Risk (04/24/2024) Housing Stability Vital Sign Unable to Pay for Housing in the Last Year: Yes Number of Times Moved in the Last Year: 1 Homeless in the Last Year: No Rose Edward DO Resident 05/20/252011 Cosigned by Susan Ratliff MD at 05/21/2025 12:24 AM EDT Emergency Department Encounter [facility] EMERGENCY DEPT Patient: Mel Wall : 1985 Date of Evaluation: 05/20/2025 ED Supervising Physician: Susan Ratliff MD I personally evaluated Mel Wall and made/approved the management plan and take responsibility for the patient management. This will serve as my Supervisory note and shared attestation. I did perform a substantive portion of the visit including all aspects of the Medical Decision Making. I wore appropriate PPE for the entirety of this encounter. In brief, Mel Wall is a 39 y.o. that presents to the emergency department with abdominal pain. Patient states that her abdominal pain started today. Has a history of numerous hernias, with several surgical repairs. Had an abdominal wall reconstruction surgery recently. States she was on the toilet trying to have a bowel movement when she began to have periumbilical abdominal pain. States she has not had a bowel movement since yesterday. Has had water bowel movement. No blood in her stool. No nausea or vomiting. Focused exam: Patient awake alert, in distress secondary pain. Lungs clear to auscultation bilateral. Heart regular rate and rhythm. Abdomen is soft, significant amount of tenderness particularly in periumbilical area with palpable hernia with mesh able to be palpated. Brief ED course/MDM: Patient 39-year-old female with history of numerous abdominal wall hernias who presents with abdominal pain after bowel movement. Palpable hernia. Did not attempt to reduce it as there is mesh lining and that the concern is that bowel could be disrupted if a significant pressure was applied. Will plan on obtaining abdominal laboratory workup, CT abdomen pelvis and I reevaluate. Treat pain. Diagnostics interpreted by me: none I personally discussed the patient's management with other clinicians: none All diagnostic, treatment, and disposition decisions were made by myself in conjunction with the Resident. I also supervised solares portions of any procedures performed by the Resident. For all further details of the patient's emergency department visit, please see their documentation. (Comment: Please note this report has been produced using speech recognition software and may contain errors related to that system including errors in grammar, punctuation, and spelling, as well as words and phrases that may be inappropriate. If there are any questions or concerns please feel free to contact the dictating provider for clarification.) Susan Ratliff MD Acute Care [facility] Susan Ratliff MD 05/20/25 1737 documented in this encounter [facility] 05-20-2025 History and physical note Attending History and Physical Admit Date: 05/20/2025 PCP: No primary care provider on file. CHIEF COMPLAINT: Abdominal pain Reason for Admission: Concern for obstruction/hernia History Obtained From: patient HISTORY OF PRESENT ILLNESS: Patient is a 39-year-old female with past medical history of THC use, depression, obesity, extensive surgical history with open recurrent inguinal hernia repair (08/07/24) w/ mesh complicated by seromas, lysis of adhesions, transverse abdominis release, panniculectomy, removal or infarcted cecal epiploic appendage last seen in the hospital on 05/11/2025. She initially presented to [facility] emergency department with abdominal pain. There was concern for intussusception/obstruction however patient improved so NG was never placed. Diet was advanced and patient was discharged home. Patient presented back to the emergency department on 05/20/2025 with a chief complaint of periumbilical pain. Her last bowel movement was yesterday, watery in nature, no blood. Today, she was attempting to use the restroom and felt a pop in her mid abdomen with resulting pain. She was unable to go to the bathroom. Then she developed nausea and vomiting. She has had 3 episodes of emesis (without bleeding), which triggered her presentation to the emergency department. She has associated dizziness (no focal neurologic deficits). She also feels like she has some chest pressure and intense neck although patient attributes this to anxiety. No fevers or chills. In the emergency department, patient was mildly tachycardic, blood pressure is mildly elevated but overall vitals are stable. CMP showed hyponatremia at 134, hypokalemia 3.1, mild acidosis with bicarb of 18, elevated glucose at 116, CBC unremarkable. UA negative for infection. - CT abdomen pelvis completed showing eccentric circumferential wall thickening of her small bowel anastomosis suggesting partial intussusception versus mass/inflammation. She has findings consistent with known ventral hernia repair. Nonobstructive right renal calculus without hydronephrosis. Biliary duct distention consistent with her history of cholecystectomy. Small sliding-type hiatal hernia. We requested admission under general surgery as patient is otherwise healthy other than her concern for obstruction/intussusception/hernia however they requested admission under medicine as we admitted patient last time. Patient will be admitted for general surgery review, n.p.o. until cleared by surgery. Past Medical History: Medical History[1] Past Surgical History: Surgical History[2] Social History: Social History Socioeconomic History Marital status: Spouse name: Not on file Number of children: Not on file Years of education: Not on file Highest education level: Not on file Occupational History Not on file Tobacco Use Smoking status: Former Types: Cigarettes Smokeless tobacco: Never Substance and Sexual Activity Alcohol use: Not Currently Drug use: Yes Frequency: 2.0 times per week Types: Marijuana Comment: edibles Sexual activity: Not Currently Other Topics Concern Not on file Social History Narrative Not on file Social Drivers of Health Financial Resource Strain: High Risk (04/24/2024) Overall Financial Resource Strain (CARDIA) Difficulty of Paying Living Expenses: Very hard Food Insecurity: Patient Declined (04/26/2024) Hunger Vital Sign Worried About Running Out of Food in the Last Year: Patient declined Ran Out of Food in the Last Year: Patient declined Recent Concern: Food Insecurity - Food Insecurity Present (04/24/2024) Hunger Vital Sign Worried About Running Out of Food in the Last Year: Often true Ran Out of Food in the Last Year: Often true Transportation Needs: Patient Declined (04/26/2024) PRAPARE - Transportation Lack of Transportation (Medical): Patient declined Lack of Transportation (Non-Medical): Patient declined Recent Concern: Transportation Needs - Unmet Transportation Needs (04/24/2024) PRAPARE - Transportation Lack of Transportation (Medical): Yes Lack of Transportation (Non-Medical): Yes Physical Activity: Sufficiently Active (04/24/2024) Exercise Vital Sign Days of Exercise per Week: 7 days Minutes of Exercise per Session: 60 min Stress: Stress Concern Present (04/24/2024) [employer] [employer] - Occupational Stress Questionnaire Feeling of Stress : Very much Social Connections: Moderately Integrated (04/24/2024) Social Connection and Isolation Panel [NHANES] Frequency of Communication with Friends and Family: Twice a week Frequency of Social Gatherings with Friends and Family: Once a week Attends Adventism Services: More than 4 times per year Active Member of Clubs or Organizations: No Attends Club or Organization Meetings: More than 4 times per year Marital Status: Intimate Partner Violence: Not At Risk (05/10/2025) Humiliation, Afraid, Rape, and Kick questionnaire Fear of Current or Ex-Partner: No Emotionally Abused: No Physically Abused: No Sexually Abused: No Housing Stability: Unknown (04/26/2024) Housing Stability Vital Sign Unable to Pay for Housing in the Last Year: Patient declined Number of Times Moved in the Last Year: 1 Homeless in the Last Year: No Recent Concern: Housing Stability - High Risk (04/24/2024) Housing Stability Vital Sign Unable to Pay for Housing in the Last Year: Yes Number of Times Moved in the Last Year: 1 Homeless in the Last Year: No Family History: Family History[3] Medications Prior to Admission: Current Medications[4] Medications Reconciliation: Medications were reviewed in chart but unable to verify accurate with patient Allergies: Allergies[5] REVIEW OF SYSTEMS: 10 point ROS obtained, as per HPI, otherwise NEG Vitals: BP (!) 143/114 Pulse 101 Temp 36.9 C (98.5 F) (Oral) Resp 13 Ht 5' 3 (1.6 m) Wt 220 lb (99.8 kg) SpO2 98% BMI 38.97 kg/m BMI Classification: Obese (BMI 30.0-39.9) Pulse Ox: SpO2 Av.7 % Min: 98 % Max: 99 % Supplemental O2: PHYSICAL EXAM: Physical Exam Constitutional: Appearance: Normal appearance. Eyes: Extraocular Movements: Extraocular movements intact. Pupils: Pupils are equal, round, and reactive to light. Cardiovascular: Rate and Rhythm: Normal rate and regular rhythm. Heart sounds: No murmur heard. Pulmonary: Effort: Pulmonary effort is normal. No respiratory distress. Breath sounds: Normal breath sounds. No wheezing. Abdominal: Tenderness: There is abdominal tenderness. Comments: Midline hernia felt just below her scar, mildly tender. Bowel sounds decreased/hypoactive. Musculoskeletal: General: No deformity. Skin: General: Skin is warm and dry. Neurological: General: No focal deficit present. Mental Status: She is alert and oriented to person, place, and time. DATA: CBC: Recent Labs 05/20/25 1627 WBC 8.4 RBC 4.21 HGB 13.0 HCT 39.1 MCV 92.9 RDW 12.5 PLT 239 BMP: Recent Labs 05/20/25 1627 NA 134* K 3.1* CL 105 CO2 18* BUN 11 CREATININE 0.66 GLUCOSE 116* CALCIUM 8.9 ANIONGAP 11 LIVER PROFILE: Recent Labs 05/20/25 1627 AST 16 ALT 15 BILITOT 0.3 ALKPHOS 37* PROT 6.8 PT/INR: No results for input(s): PROTIME, INR in the last 72 hours. CARDIAC ENZYMES: No results for input(s): TROPONINI in the last 72 hours. Procalcitonin: No results found for: PROCAL Urine Culture: No results found for this or any previous visit. COVID-19 PCR: No results for input(s): COVID19 in the last 72 hours. I reviewed: [x] laboratory results [x] radiographic results At the time of today's encounter. Pt was advised of the results. Data: (CAT1) Reviewed 3 or more notes from different specialty or health system (each=1). (CAT1) Reviewed 3 or more labs/studies ordered by another provider not previously counted (each=1, panels count as 1). (CAT3) Discussed with ED provider, Dr. Edward, regarding patient's eval & mgmt thus far, and agree with the plan for hospitalization. (LOW: 2x CAT1 or independent historian MOD: 3x CAT1 or 1x CAT3 EXTENSIVE: 3x CAT1 and 1x CAT3) Assessment Discussed management with the ED provider and agree with hospitalization. Acute, acute on chronic, unstable/uncontrolled chronic problems/diagnoses: Developing small bowel obstruction Abdominal hernia Multiple abdominal surgeries, open recurrent inguinal hernia repair (08/07/24) w/ mesh complicated by seromas, lysis of adhesions, transverse abdominis release, panniculectomy, removal or infarcted cecal epiploic appendage Stable chronic problems affecting care, new non-acute diagnoses: THC use, depression, obesity Plan As a result of the above findings & factors, the following mgmt was pursued: - General Surgery consultation, n.p.o., gentle fluids, continue to monitor replace electrolytes. Advance diet per surgical recommendations. NG tube per surgical recommendations. -Pain management - am labs, replace lytes prn - PT/OT/CM/SW - delirium precautions: increase activity and limit nighttime disturbances - DVT prophylaxis: enoxaparin and encourage ambulation Complexity: Acute illness or injury posing a threat to life or body function (HIGH). Risk: Admission to hospital-level care was considered or occurred (HIGH). Advance Directive: Prior Anticipated Discharge - Date - 05/23/25 - Location - Home - Pending the following -resolution of SBO Total time spent (which include face to face and non face to face encounters) : 68 minutes. Extended Emergency Contact Information Primary Emergency Contact: nilton loredo Address: [address] [place] [address] [place] Relation: Significant Other [employer] Mel Wall : 1985 Primary Care Physician: No primary care provider on file. The patient and/or family/surrogate voluntarily agreed to participate in ACP services. 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 Partial obstruction of small intestine (HCC) 06/13/2024 [2] Past Surgical History: Procedure Laterality Date APPENDECTOMY BILIOPANCREATIC DIVERSION 10/23/2008 Sherie @ [place]; janel-en-y duodenojejunostomy for bile reflux CHOLECYSTECTOMY 02/2007 lap COLONOSCOPY N/A 11/29/2023 [facility]; repeat in 11/2033 EXPLORATORY LAPAROTOMY 06/10/2019 Veronica @ [facility]; ex lap, WAI INCISION AND DRAINAGE OF WOUND 08/09/2013 [facility]; I&D of surgical incision of LLQ INCISIONAL HERNIA REPAIR 10/20/2017 [facility]; open primary repair INCISIONAL HERNIA REPAIR 07/12/2018 [facility]; open w/ mesh INCISIONAL HERNIA REPAIR 09/26/2018 [facility]; lap w/ mesh INCISIONAL HERNIA REPAIR 03/11/2020 ; repair w/ mesh excision, mesh replacement ([facility] [facility] Mesh w/ Echo), WAI INCISIONAL HERNIA REPAIR 07/19/2015 [facility]; open repair w/ mesh INCISIONAL HERNIA REPAIR 08/07/2024 [facility]; an open recurrent repair w/ mesh, WAI, TAR, removal of infarcted cecal epiploic appendage PANNICULECTOMY (HISTORICAL) 08/07/2024 [facility] SOFT TISSUE MASS EXCISION 08/02/2013 [facility]; STM excision of LLQ TONSILLECTOMY [3] Family History Problem Relation Name Age of Onset Hypertension Father Diabetes Father [4] No current facility-administered medications for this encounter. Current Outpatient Medications: acetaminophen (Tylenol) 325 MG tablet, Take 650 mg by mouth every 6 hours as needed for mild pain (1-3), moderate pain (4-6), headaches or fever., Disp: , Rfl: albuterol 108 (90 Base) MCG/ACT inhaler, Inhale 2 puffs every 4 hours as needed for wheezing or shortness of breath. (Patient not taking: Reported on 11/20/2024), Disp: , Rfl: FLUoxetine (PROzac) 20 MG capsule, Take 20 mg by mouth daily., Disp: , Rfl: hydrOXYzine HCl (Atarax) 25 MG tablet, Take 1 tablet (25 mg) by mouth every 8 hours as needed for itching for up to 7 days., Disp: 21 tablet, Rfl: 0 [5] Allergies Allergen Reactions Ketorolac Hives and Shortness of breath Other reaction(s): Hives Ondansetron Shortness of breath and Hives Other reaction(s): Hives, Respiratory distress Seasonal Itching and Other Stuffy nose [facility] Phone: 05-20-2025 History and physical note Attending History and Physical Admit Date: 05/20/2025 PCP: No primary care provider on file. CHIEF COMPLAINT: Abdominal pain Reason for Admission: Concern for obstruction/hernia History Obtained From: patient HISTORY OF PRESENT ILLNESS: Patient is a 39-year-old female with past medical history of THC use, depression, obesity, extensive surgical history with open recurrent inguinal hernia repair (08/07/24) w/ mesh complicated by seromas, lysis of adhesions, transverse abdominis release, panniculectomy, removal or infarcted cecal epiploic appendage last seen in the hospital on 05/11/2025. She initially presented to [facility] emergency department with abdominal pain. There was concern for intussusception/obstruction however patient improved so NG was never placed. Diet was advanced and patient was discharged home. Patient presented back to the emergency department on 05/20/2025 with a chief complaint of periumbilical pain. Her last bowel movement was yesterday, watery in nature, no blood. Today, she was attempting to use the restroom and felt a pop in her mid abdomen with resulting pain. She was unable to go to the bathroom. Then she developed nausea and vomiting. She has had 3 episodes of emesis (without bleeding), which triggered her presentation to the emergency department. She has associated dizziness (no focal neurologic deficits). She also feels like she has some chest pressure and intense neck although patient attributes this to anxiety. No fevers or chills. In the emergency department, patient was mildly tachycardic, blood pressure is mildly elevated but overall vitals are stable. CMP showed hyponatremia at 134, hypokalemia 3.1, mild acidosis with bicarb of 18, elevated glucose at 116, CBC unremarkable. UA negative for infection. - CT abdomen pelvis completed showing eccentric circumferential wall thickening of her small bowel anastomosis suggesting partial intussusception versus mass/inflammation. She has findings consistent with known ventral hernia repair. Nonobstructive right renal calculus without hydronephrosis. Biliary duct distention consistent with her history of cholecystectomy. Small sliding-type hiatal hernia. We requested admission under general surgery as patient is otherwise healthy other than her concern for obstruction/intussusception/hernia however they requested admission under medicine as we admitted patient last time. Patient will be admitted for general surgery review, n.p.o. until cleared by surgery. Past Medical History: Medical History[1] Past Surgical History: Surgical History[2] Social History: Social History Socioeconomic History Marital status: Spouse name: Not on file Number of children: Not on file Years of education: Not on file Highest education level: Not on file Occupational History Not on file Tobacco Use Smoking status: Former Types: Cigarettes Smokeless tobacco: Never Substance and Sexual Activity Alcohol use: Not Currently Drug use: Yes Frequency: 2.0 times per week Types: Marijuana Comment: edibles Sexual activity: Not Currently Other Topics Concern Not on file Social History Narrative Not on file Social Drivers of Health Financial Resource Strain: High Risk (04/24/2024) Overall Financial Resource Strain (CARDIA) Difficulty of Paying Living Expenses: Very hard Food Insecurity: Patient Declined (04/26/2024) Hunger Vital Sign Worried About Running Out of Food in the Last Year: Patient declined Ran Out of Food in the Last Year: Patient declined Recent Concern: Food Insecurity - Food Insecurity Present (04/24/2024) Hunger Vital Sign Worried About Running Out of Food in the Last Year: Often true Ran Out of Food in the Last Year: Often true Transportation Needs: Patient Declined (04/26/2024) PRAPARE - Transportation Lack of Transportation (Medical): Patient declined Lack of Transportation (Non-Medical): Patient declined Recent Concern: Transportation Needs - Unmet Transportation Needs (04/24/2024) PRAPARE - Transportation Lack of Transportation (Medical): Yes Lack of Transportation (Non-Medical): Yes Physical Activity: Sufficiently Active (04/24/2024) Exercise Vital Sign Days of Exercise per Week: 7 days Minutes of Exercise per Session: 60 min Stress: Stress Concern Present (04/24/2024) [employer] [place] [employer] - Occupational Stress Questionnaire Feeling of Stress : Very much Social Connections: Moderately Integrated (04/24/2024) Social Connection and Isolation Panel [NHANES] Frequency of Communication with Friends and Family: Twice a week Frequency of Social Gatherings with Friends and Family: Once a week Attends Adventism Services: More than 4 times per year Active Member of Clubs or Organizations: No Attends Club or Organization Meetings: More than 4 times per year Marital Status: Intimate Partner Violence: Not At Risk (05/10/2025) Humiliation, Afraid, Rape, and Kick questionnaire Fear of Current or Ex-Partner: No Emotionally Abused: No Physically Abused: No Sexually Abused: No Housing Stability: Unknown (04/26/2024) Housing Stability Vital Sign Unable to Pay for Housing in the Last Year: Patient declined Number of Times Moved in the Last Year: 1 Homeless in the Last Year: No Recent Concern: Housing Stability - High Risk (04/24/2024) Housing Stability Vital Sign Unable to Pay for Housing in the Last Year: Yes Number of Times Moved in the Last Year: 1 Homeless in the Last Year: No Family History: Family History[3] Medications Prior to Admission: Current Medications[4] Medications Reconciliation: Medications were reviewed in chart but unable to verify accurate with patient Allergies: Allergies[5] REVIEW OF SYSTEMS: 10 point ROS obtained, as per HPI, otherwise NEG Vitals: BP (!) 143/114 Pulse 101 Temp 36.9 C (98.5 F) (Oral) Resp 13 Ht 5' 3 (1.6 m) Wt 220 lb (99.8 kg) SpO2 98% BMI 38.97 kg/m BMI Classification: Obese (BMI 30.0-39.9) Pulse Ox: SpO2 Av.7 % Min: 98 % Max: 99 % Supplemental O2: PHYSICAL EXAM: Physical Exam Constitutional: Appearance: Normal appearance. Eyes: Extraocular Movements: Extraocular movements intact. Pupils: Pupils are equal, round, and reactive to light. Cardiovascular: Rate and Rhythm: Normal rate and regular rhythm. Heart sounds: No murmur heard. Pulmonary: Effort: Pulmonary effort is normal. No respiratory distress. Breath sounds: Normal breath sounds. No wheezing. Abdominal: Tenderness: There is abdominal tenderness. Comments: Midline hernia felt just below her scar, mildly tender. Bowel sounds decreased/hypoactive. Musculoskeletal: General: No deformity. Skin: General: Skin is warm and dry. Neurological: General: No focal deficit present. Mental Status: She is alert and oriented to person, place, and time. DATA: CBC: Recent Labs 05/20/25 1627 WBC 8.4 RBC 4.21 HGB 13.0 HCT 39.1 MCV 92.9 RDW 12.5 PLT 239 BMP: Recent Labs 05/20/25 1627 NA 134* K 3.1* CL 105 CO2 18* BUN 11 CREATININE 0.66 GLUCOSE 116* CALCIUM 8.9 ANIONGAP 11 LIVER PROFILE: Recent Labs 05/20/25 1627 AST 16 ALT 15 BILITOT 0.3 ALKPHOS 37* PROT 6.8 PT/INR: No results for input(s): PROTIME, INR in the last 72 hours. CARDIAC ENZYMES: No results for input(s): TROPONINI in the last 72 hours. Procalcitonin: No results found for: PROCAL Urine Culture: No results found for this or any previous visit. COVID-19 PCR: No results for input(s): COVID19 in the last 72 hours. I reviewed: [x] laboratory results [x] radiographic results At the time of today's encounter. Pt was advised of the results. Data: (CAT1) Reviewed 3 or more notes from different specialty or health system (each=1). (CAT1) Reviewed 3 or more labs/studies ordered by another provider not previously counted (each=1, panels count as 1). (CAT3) Discussed with ED provider, Dr. Edward, regarding patient's eval & mgmt thus far, and agree with the plan for hospitalization. (LOW: 2x CAT1 or independent historian MOD: 3x CAT1 or 1x CAT3 EXTENSIVE: 3x CAT1 and 1x CAT3) Assessment Discussed management with the ED provider and agree with hospitalization. Acute, acute on chronic, unstable/uncontrolled chronic problems/diagnoses: Developing small bowel obstruction Abdominal hernia Multiple abdominal surgeries, open recurrent inguinal hernia repair (08/07/24) w/ mesh complicated by seromas, lysis of adhesions, transverse abdominis release, panniculectomy, removal or infarcted cecal epiploic appendage Stable chronic problems affecting care, new non-acute diagnoses: THC use, depression, obesity Plan As a result of the above findings & factors, the following mgmt was pursued: - General Surgery consultation, n.p.o., gentle fluids, continue to monitor replace electrolytes. Advance diet per surgical recommendations. NG tube per surgical recommendations. -Pain management - am labs, replace lytes prn - PT/OT/CM/SW - delirium precautions: increase activity and limit nighttime disturbances - DVT prophylaxis: enoxaparin and encourage ambulation Complexity: Acute illness or injury posing a threat to life or body function (HIGH). Risk: Admission to hospital-level care was considered or occurred (HIGH). Advance Directive: Prior Anticipated Discharge - Date - 05/23/25 - Location - Home - Pending the following -resolution of SBO Total time spent (which include face to face and non face to face encounters) : 68 minutes. Extended Emergency Contact Information Primary Emergency Contact: nilton loredo Address: [address] [place] [address] Mobile Relation: Significant Other [employer] [facility] : 1985 Primary Care Physician: No primary care provider on file. The patient and/or family/surrogate voluntarily agreed to participate in ACP services. 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 Partial obstruction of small intestine (HCC) 06/13/2024 [2] Past Surgical History: Procedure Laterality Date APPENDECTOMY BILIOPANCREATIC DIVERSION 10/23/2008 Sherie @ [facility]; janel-en-y duodenojejunostomy for bile reflux CHOLECYSTECTOMY 02/2007 lap COLONOSCOPY N/A 11/29/2023 [facility]; repeat in 11/2033 EXPLORATORY LAPAROTOMY 06/10/2019 Veronica @ [facility]; ex lap, WAI INCISION AND DRAINAGE OF WOUND 08/09/2013 [facility]; I&D of surgical incision of LLQ INCISIONAL HERNIA REPAIR 10/20/2017 [facility]; open primary repair INCISIONAL HERNIA REPAIR 07/12/2018 [facility]; open w/ mesh INCISIONAL HERNIA REPAIR 09/26/2018 [facility]; lap w/ mesh INCISIONAL HERNIA REPAIR 03/11/2020 [facility]; repair w/ mesh excision, mesh replacement ([facility] Mesh w/ Echo), WAI INCISIONAL HERNIA REPAIR 07/19/2015 [facility]; open repair w/ mesh INCISIONAL HERNIA REPAIR 08/07/2024 [facility]; an open recurrent repair w/ mesh, WAI, TAR, removal of infarcted cecal epiploic appendage PANNICULECTOMY (HISTORICAL) 08/07/2024 [facility] SOFT TISSUE MASS EXCISION 08/02/2013 [facility]; STM excision of LLQ TONSILLECTOMY [3] Family History Problem Relation Name Age of Onset Hypertension Father Diabetes Father [4] No current facility-administered medications for this encounter. Current Outpatient Medications: acetaminophen (Tylenol) 325 MG tablet, Take 650 mg by mouth every 6 hours as needed for mild pain (1-3), moderate pain (4-6), headaches or fever., Disp: , Rfl: albuterol 108 (90 Base) MCG/ACT inhaler, Inhale 2 puffs every 4 hours as needed for wheezing or shortness of breath. (Patient not taking: Reported on 11/20/2024), Disp: , Rfl: FLUoxetine (PROzac) 20 MG capsule, Take 20 mg by mouth daily., Disp: , Rfl: hydrOXYzine HCl (Atarax) 25 MG tablet, Take 1 tablet (25 mg) by mouth every 8 hours as needed for itching for up to 7 days., Disp: 21 tablet, Rfl: 0 [5] Allergies Allergen Reactions Ketorolac Hives and Shortness of breath Other reaction(s): Hives Ondansetron Shortness of breath and Hives Other reaction(s): Hives, Respiratory distress Seasonal Itching and Other Stuffy nose documented in this encounter [facility] 05-20-2025 Note [facility] 05-20-2025 Consult note Formatting of th is note is different from the original. Images from the original note were not included. Department of General Surgery Surgical Service - Advanced Laparoscopic and Bariatric Surgery Resident Consult Note 05/20/2025 CHIEF COMPLAINT: Chief Complaint Patient presents with Abdominal Pain Patient from work via EMS due to sudden severe abdominal pain. Patient has a history of hernias and has felt sore since new hernia formation. Patient stated she was on the toilet and felt she had to have a bowel movement. Patient stated no bowel movement occurred however a sharp, sudden pain covered her upper umbilical region. Patient described a 10/10 pain. Reason for Consult: Nausea, vomiting, abdominal pain with concerns for developing small bowel obstruction HISTORY OF PRESENT ILLNESS: Mel Wall is a 39 y.o. female with significant past medical history of anxiety, bipolar, depression, obesity, history of bile reflux for which she had biliopancreatic diversion procedure in 2008, history of extensive ventral wall incisional hernias for which she has had multiple procedures containing mesh, who presents with abdominal pain, nausea and vomiting. Surgery was consulted for evaluation of concerns for inflammation versus intussusception at her jejunojejunostomy concerning for developing obstruction. Patient states she has had a day history of abdominal pain that was worsening and persistent throughout the day. She additionally had nausea and episodes of vomiting. She denies fever/chills. She states she has not had bowel function since this time. She has continued to void without difficulty. She states she had a previous episode of this a few weeks ago that was treated with nonoperative management. She has plans for abdominal wall reconstruction with Dr. Taylor in the future but planning for likely a year from now per patient's retelling. Discussed with patient she will likely require a nasogastric tube for decompression. With her multiple abdominal surgeries she has had these tubes before and would like to avoid it at all costs, she would like to deny at this time understanding the risk of aspiration but would consider NG tube placement if continuing to have worsening nausea and vomiting. She does not take any blood thinning medications. She has abdominal surgical history with multiple ventral incisional hernia repairs the last being with Dr. Taylor 08/02 where she had open recurrent repair with mesh, lysis of adhesions, TAR, and removal of infarcted cecal epiploic appendage as well as panniculectomy. Patient also has abdominal surgical history of cholecystectomy and appendectomy. On evaluation patient was afebrile, heart rate ranging between 92-101, normotensive, saturating well on room air. Labs reviewed significant for: Being without leukocytosis, hemoglobin stable, mild hypokalemia with a potassium of 3.1, otherwise no significant electrolyte abnormalities on CMP. imaging demonstrated inflammation versus possible intussusception at the jejunojejunostomy and dilation of the bowel proximal to this region with mild dilation of her stomach concerning for likely partial obstruction at the JJ resulting in developing small bowel obstruction on CT abdomen pelvis. Medical History[1] Surgical History[2] Medications Prior to Admission: Medications Ordered Prior to Encounter[3] Allergies: Ketorolac, Ondansetron, and Seasonal Social History[4] Family History[5] REVIEW OF SYSTEMS: Review of Systems Constitutional: Negative for chills, fatigue and fever. Respiratory: Negative for shortness of breath. Cardiovascular: Negative for chest pain. Gastrointestinal: Positive for abdominal distention, abdominal pain, nausea and vomiting. Skin: Negative for color change and wound. Neurological: Negative for weakness. Psychiatric/Behavioral: Negative for agitation and confusion. PHYSICAL EXAM: Vitals: 05/20/25 1805 BP: (!) 143/114 Pulse: 101 Resp: 13 Temp: SpO2: 98% I/O last 3 completed shifts: In: 1000 (10 mL/kg) [IV Piggyback:1000] Out: - (0 mL/kg) Weight: 99.8 kg CONSTITUTIONAL: awake, alert, cooperative, no apparent distress NECK: Supple, symmetrical, trachea midline, no adenopathy LUNGS: No increased work of breathing, good air exchange CARDIOVASCULAR: Mildly tachycardic ABDOMEN: Soft, mildly distended, mildly tender at abdominal midline over the area where there is concern for JJ inflammation, reducible ventral incisional hernia that is fat-containing, no overlying skin changes, no erythema, no induration, well-healed midline laparotomy incision CHEST: no masses palpated GENITAL/URINARY: Not examined MUSCULOSKELETAL: There is no redness, warmth, or swelling of the joints. Full range of motion noted. NEUROLOGIC: Awake, alert, oriented to name, place and time. SKIN: normal skin color, texture, no redness, warmth, or swelling DATA: CBC: Lab Results Component Value Date WBC 8.4 05/20/2025 RBC 4.21 05/20/2025 HGB 13.0 05/20/2025 HCT 39.1 05/20/2025 MCV 92.9 05/20/2025 MCH 30.9 05/20/2025 MCHC 33.2 05/20/2025 RDW 12.5 05/20/2025 PLT 239 05/20/2025 MPV 8.8 (L) 05/20/2025 BMP: Lab Results Component Value Date NA 134 (L) 05/20/2025 K 3.1 (L) 05/20/2025 CL 105 05/20/2025 CO2 18 (L) 05/20/2025 BUN 11 05/20/2025 CREATININE 0.66 05/20/2025 CALCIUM 8.9 05/20/2025 GLUCOSE 116 (H) 05/20/2025 Hepatic Function Panel: Lab Results Component Value Date ALKPHOS 37 (L) 05/20/2025 ALT 15 05/20/2025 AST 16 05/20/2025 PROT 6.8 05/20/2025 BILITOT 0.3 05/20/2025 PT/INR: No results found for: PROTIME, INR Troponin: No results found for: TROPONINI LIPASE: Lab Results Component Value Date LIPASE 29 05/20/2025 IMAGING: CT abdomen pelvis w contrast Narrative: Patient Name: MEL WALL : 1985 [facility]#: [id number] Exam Date/Time: 05/20/2025 17:56 Procedure: CT ABDOMEN PELVIS W CONTRAST Ordering Provider: RATLIFF ANDREW Reason For Exam: ventral hernia, previous repair with mesh Gender: Female Age: 39 years History: ventral hernia, previous repair with mesh Exam: CT ABDOMEN PELVIS W CONTRAST Indication: Severe abdominal pain upper umbilical region Scan Parameters: Multiple axial CT images were obtained of the abdomen and pelvis. Coronal and sagittal reconstructions were reviewed as well. ALARA protocol. Dose reduction was employed with automated exposure control. Contrast: 75 mL of Isovue-370 IV contrast Comparison: CT abdomen and pelvis 05/09/2025 FINDINGS: The lung bases are clear. The heart is not enlarged. There are no atherosclerotic calcifications along the aorta or branches. There is a stable 1.3 cm sclerotic focus in T9, unchanged from 09/13/2023. The gallbladder is absent. Mild intrahepatic and extrahepatic biliary duct distention likely sequela from cholecystectomy. The liver, pancreas, spleen, and adrenal glands are within normal limits. There is mild nodularity of the adrenal glands, unchanged. There is no hydronephrosis. Punctate right renal calculi are present. Bilateral renal cysts appear similar to prior exam, no follow-up required. The bladder contour is normal, no bladder wall thickening. Pelvic phleboliths are present. The uterus is anteverted and approximates the ventral abdominal wall. Bilateral tubal ligation clips noted. Limited evaluation of the ovaries with follicular cystic changes. The appendix is not visualized, no CT evidence for appendicitis. There is a small sliding-type hiatal hernia. There is a postsurgical small bowel anastomosis at the midline with eccentric circumferential wall thickening which could represent partial intussusception versus mass and/or inflammation, also noted on prior exam (small bowel fluoroscopic exam 05/10/2025 demonstrated no obstruction). There is no free air and no free fluid. Ventral hernia repair changes. There is diastases of the abdominal rectus muscle at the midline with small fatty ventral hernias. There is no adenopathy. Impression: 1. There is a postsurgical small bowel anastomosis at the midline, similar to 05/09/2025, with eccentric circumferential wall thickening which could represent partial intussusception versus mass and/or inflammation. If pain persists, consider follow-up with GI. (small bowel fluoroscopic exam 05/10/2025 demonstrated no obstruction). 2. Ventral hernia repair changes with multiple ventral fatty hernias. 3. Nonobstructive right renal calculus. No hydronephrosis. 4. Additional findings, as above. Report Dictated on Electronically Signed By: Michelle Velazquez MD Electronically Signed Date/Time: 05/20/2025 6:20 PM EDT ASSESSMENT AND PLAN: This is a 39 y.o. female with concerns for developing small bowel obstruction at her jejunojejunostomy with history of biliopancreatic diversion for bile reflux - Recommend medical admission - No acute surgical intervention indicated at this time - Will plan can to conservatively managed with nasogastric decompression, patient denying at this time despite risks of aspiration, states she will consider NGT placement if worsening nausea and vomiting - Bowel rest - N.p.o. with LR to 100 - As needed pain and nausea control - Serial abdominal exams - Likely interval small bowel follow-through this admission - Discussed with patient that we would like to try and avoid surgery unless absolutely necessary given her multiple history of abdominal wall procedures containing mesh, she is agreeable to this plan, will continue to evaluate and monitor Patient discussed with attending, Dr. Taylor. Kelsey Lux MD General Surgery Resident 05/20/25 7:55 PM This note may have been dictated using [employer] / [employer] Practice Edition 2.6 and/or [employer] Voice Recognition Feature. The document was proofread; however, unrecognized voice recognition wood stock blank handler errors may be present. ATTESTATION The patient was seen and examined. I have reviewed the patients presentation, histories, imaging and serology studies. I agree with the above assessment and plan. Ab: Soft, Non-distended, non-tender Patient was seen and examined this morning. Patient states that her pain is much better controlled compared to yesterday. Her CT scan from yesterday was personally reviewed and interpreted. Findings appear to be consistent with prior CT scan. I cannot fully appreciate an intussusception of her previous jejunojejunostomy, it appears as though this is a large anastomosis that is decompressed rather than a true intussusception with a target sign. These findings appear to be consistent with a jejunojejunostomy from prior bariatric surgery. Patient denies obstructive symptoms. She does however state that the pain is causing her to become nauseous. Patient was seen earlier this month and had a normal small bowel follow-through. CT scan images and small bowel follow-through were reviewed with radiology who agree that this likely represents a decompressed anastomosis rather than a pathologic intussusception. Based on these findings and her clinical symptoms, I do not recommend operative intervention at this time. The patient is likely having an acute exacerbation of pain from her recurrent incisional hernia. This pain will likely fluctuate as her absorbable mesh dissolves. I do not recommend proceeding with operative therapy on this hernia until we are 12 months from the previous surgery. Patient is understanding and agreeable to this. Additionally, patient states that she is established with outpatient pain management with her appointment scheduled for the end of June. Given her previous issues with pain control from her last surgery and high MME's of oxycodone, I would like her to be well-established prior to proceeding with operative intervention. Patient understands this and is also agreeable to this as well. Patient is scheduled to see me in 2 weeks. Thank for allowing me to participate in the care of this patient, please call with any questions, concerns or if the patient status changes. --------- I personally performed the evaluation and management of Mel Wall in the development of a treatment plan for this patient. I personally interviewed the patient and performed an individual physical examination. In addition, I discussed the patient's condition and treatment options with them. I have also reviewed and agree with the past medical, family and social history unless otherwise noted. All of the patient's questions were answered. I personally spent 55 minutes of time between the face to face encounter, physical exam, reviewing the medical history, coordinating the patient's care, counseling/educating the patient, ordering prescriptions/medications/tests/proc edures, interpreting results and documenting clinical information in the patient's electronic health record on the day of the encounter. 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 Partial obstruction of small intestine (HCC) 06/13/2024 [2] Past Surgical History: Procedure Laterality Date APPENDECTOMY BILIOPANCREATIC DIVERSION 10/23/2008 Sherie @ [facility]; janel-en-y duodenojejunostomy for bile reflux CHOLECYSTECTOMY 02/2007 lap COLONOSCOPY N/A 11/29/2023 [facility]; repeat in 11/2033 EXPLORATORY LAPAROTOMY 06/10/2019 Veronica @ [facility]; ex lap, WAI INCISION AND DRAINAGE OF WOUND 08/09/2013 [facility]; I&D of surgical incision of LLQ INCISIONAL HERNIA REPAIR 10/20/2017 [facility]; open primary repair INCISIONAL HERNIA REPAIR 07/12/2018 [facility]; open w/ mesh INCISIONAL HERNIA REPAIR 09/26/2018 [facility]; lap w/ mesh INCISIONAL HERNIA REPAIR 03/11/2020 [facility]; repair w/ mesh excision, mesh replacement ([facility]ent[facility]ight St Mesh w/ Echo), WAI INCISIONAL HERNIA REPAIR 07/19/2015 [facility]; open repair w/ mesh INCISIONAL HERNIA REPAIR 08/07/2024 [facility]; an open recurrent repair w/ mesh, WAI, TAR, removal of infarcted cecal epiploic appendage PANNICULECTOMY (HISTORICAL) 08/07/2024 [facility] SOFT TISSUE MASS EXCISION 08/02/2013 [facility]; STM excision of LLQ TONSILLECTOMY [3] No current facility-administered medications for this encounter. Current Outpatient Medications Medication Sig Dispense Refill acetaminophen (Tylenol) 325 MG tablet Take 650 mg by mouth every 6 hours as needed for mild pain (1-3), moderate pain (4-6), headaches or fever. albuterol 108 (90 Base) MCG/ACT inhaler Inhale 2 puffs every 4 hours as needed for wheezing or shortness of breath. (Patient not taking: Reported on 11/20/2024) FLUoxetine (PROzac) 20 MG capsule Take 20 mg by mouth daily. hydrOXYzine HCl (Atarax) 25 MG tablet Take 1 tablet (25 mg) by mouth every 8 hours as needed for itching for up to 7 days. 21 tablet 0 [4] Social History Socioeconomic History Marital status: Tobacco Use Smoking status: Former Types: Cigarettes Smokeless tobacco: Never Substance and Sexual Activity Alcohol use: Not Currently Drug use: Yes Frequency: 2.0 times per week Types: Marijuana Comment: edibles Sexual activity: Not Currently Social Drivers of Health Financial Resource Strain: High Risk (04/24/2024) Overall Financial Resource Strain (CARDIA) Difficulty of Paying Living Expenses: Very hard Food Insecurity: Patient Declined (04/26/2024) Hunger Vital Sign Worried About Running Out of Food in the Last Year: Patient declined Ran Out of Food in the Last Year: Patient declined Recent Concern: Food Insecurity - Food Insecurity Present (04/24/2024) Hunger Vital Sign Worried About Running Out of Food in the Last Year: Often true Ran Out of Food in the Last Year: Often true Transportation Needs: Patient Declined (04/26/2024) PRAPARE - Transportation Lack of Transportation (Medical): Patient declined Lack of Transportation (Non-Medical): Patient declined Recent Concern: Transportation Needs - Unmet Transportation Needs (04/24/2024) PRAPARE - Transportation Lack of Transportation (Medical): Yes Lack of Transportation (Non-Medical): Yes Physical Activity: Sufficiently Active (04/24/2024) Exercise Vital Sign Days of Exercise per Week: 7 days Minutes of Exercise per Session: 60 min Stress: Stress Concern Present (04/24/2024) [employer] [place] [employer] - Occupational Stress Questionnaire Feeling of Stress : Very much Social Connections: Moderately Integrated (04/24/2024) Social Connection and Isolation Panel [NHANES] Frequency of Communication with Friends and Family: Twice a week Frequency of Social Gatherings with Friends and Family: Once a week Attends [employer] Services: More than 4 times per year Active Member of Clubs or Organizations: No Attends Club or Organization Meetings: More than 4 times per year Marital Status: Intimate Partner Violence: Not At Risk (05/10/2025) Humiliation, Afraid, Rape, and Kick questionnaire Fear of Current or Ex-Partner: No Emotionally Abused: No Physically Abused: No Sexually Abused: No Housing Stability: Unknown (04/26/2024) Housing Stability Vital Sign Unable to Pay for Housing in the Last Year: Patient declined Number of Times Moved in the Last Year: 1 Homeless in the Last Year: No Recent Concern: Housing Stability - High Risk (04/24/2024) Housing Stability Vital Sign Unable to Pay for Housing in the Last Year: Yes Number of Times Moved in the Last Year: 1 Homeless in the Last Year: No [5] Family History Problem Relation Name Age of Onset Hypertension Father Diabetes Father elect [facility] 05-20-2025 Physician Emergency department Note EMERGENCY DEPARTMENT ENCOUNTER Pt Name: Mel Wall Birthdate 1985 Date of evaluation: 05/20/2025 ED Provider: ROSE EDWARD DO CHIEF COMPLAINT Chief Complaint Patient presents with Abdominal Pain Patient from work via EMS due to sudden severe abdominal pain. Patient has a history of hernias and has felt sore since new hernia formation. Patient stated she was on the toilet and felt she had to have a bowel movement. Patient stated no bowel movement occurred however a sharp, sudden pain covered her upper umbilical region. Patient described a 10/10 pain. HISTORY OF PRESENT ILLNESS (Location/Symptom, Timing/Onset, Context/Setting, Quality, Duration, Modifying Factors, Severity) Note limiting factors. I wore appropriate PPE for the entirety of this encounter. HPI Mel Wall is a 39 y.o. who presents to the emergency department for sudden severe abdominal pain that began today at work. She states that the pain began around 3 PM. Has a history of abdominal hernias and states that this hernia she presents with today had previously been repaired with mesh. She has had a few episodes of emesis however denies any fevers, chest pain or shortness of breath. Patient very shaky when I enter the room and room clearly in severe pain. Nursing Notes were reviewed. Limitations to history: None Outside historians: None REVIEW OF SYSTEMS Review of Systems Pertinent positives and negatives as per HPI. PAST MEDICAL HISTORY Medical History[1] SURGICAL HISTORY Surgical History[2] CURRENT MEDICATIONS Previous Medications ACETAMINOPHEN (TYLENOL) 325 MG TABLET Take 650 mg by mouth every 6 hours as needed for mild pain (1-3), moderate pain (4-6), headaches or fever. ALBUTEROL 108 (90 BASE) MCG/ACT INHALER Inhale 2 puffs every 4 hours as needed for wheezing or shortness of breath. FLUOXETINE (PROZAC) 20 MG CAPSULE Take 20 mg by mouth daily. HYDROXYZINE HCL (ATARAX) 25 MG TABLET Take 1 tablet (25 mg) by mouth every 8 hours as needed for itching for up to 7 days. ALLERGIES Ketorolac, Ondansetron, and Seasonal FAMILY HISTORY Family History[3] SOCIAL HISTORY Social History[4] SCREENINGS PHYSICAL EXAM ED Triage Vitals [08/11/25 1604] Temp Heart Rate Resp BP 36.9 C (98.5 F) 92 19 123/79 SpO2 Temp Source Heart Rate Source Patient Position 99 % Oral Monitor -- BP Location FiO2 (%) -- -- Physical Exam Constitutional: General: She is in acute distress. Appearance: Normal appearance. HENT: Head: Normocephalic and atraumatic. Right Ear: External ear normal. Left Ear: External ear normal. Nose: No congestion or rhinorrhea. Mouth/Throat: Mouth: Mucous membranes are moist. Pharynx: Oropharynx is clear. Eyes: Extraocular Movements: Extraocular movements intact. Pupils: Pupils are equal, round, and reactive to light. Cardiovascular: Rate and Rhythm: Normal rate and regular rhythm. Pulses: Normal pulses. Heart sounds: Normal heart sounds. Pulmonary: Effort: Pulmonary effort is normal. No respiratory distress. Breath sounds: Normal breath sounds. Abdominal: General: Abdomen is flat. There is no distension. Palpations: Abdomen is soft. Tenderness: There is abdominal tenderness in the periumbilical area and suprapubic area. Hernia: A hernia is present. Hernia is present in the ventral area. Musculoskeletal: General: No swelling or deformity. Normal range of motion. Cervical back: Normal range of motion. Skin: General: Skin is warm and dry. Capillary Refill: Capillary refill takes less than 2 seconds. Findings: No rash. Neurological: General: No focal deficit present. Mental Status: She is alert and oriented to person, place, and time. Mental status is at baseline. Psychiatric: Mood and Affect: Mood normal. Behavior: Behavior normal. DIAGNOSTIC RESULTS RADIOLOGY (Per Emergency Physician): Interpretation per the Radiologist below, if available at the time of this note: CT abdomen pelvis w contrast Final Result 1. There is a postsurgical small bowel anastomosis at the midline, similar to 05/09/2025, with eccentric circumferential wall thickening which could represent partial intussusception versus mass and/or inflammation. If pain persists, consider follow-up with GI. (small bowel fluoroscopic exam 05/10/2025 demonstrated no obstruction). 2. Ventral hernia repair changes with multiple ventral fatty hernias. 3. Nonobstructive right renal calculus. No hydronephrosis. 4. Additional findings, as above. Report Dictated on Electronically Signed By: Michelle Velazquez MD Electronically Signed Date/Time: 05/20/2025 6:20 PM EDT LABS: Labs Reviewed COMPREHENSIVE METABOLIC PANEL - Abnormal Result Value SODIUM 134 (*) POTASSIUM 3.1 (*) CHLORIDE 105 CARBON DIOXIDE 18 (*) ANION GAP 11 UREA NITROGEN 11 CREATININE 0.66 GLUCOSE 116 (*) CALCIUM 8.9 AST (SGOT) 16 ALT 15 ALKALINE PHOSPHATASE 37 (*) ALBUMIN 4.1 BILIRUBIN, TOTAL 0.3 TOTAL PROTEIN 6.8 eGFR >90.0 CBC WITH AUTO DIFFERENTIAL - Abnormal Auto WBC 8.4 RBC 4.21 Hemoglobin 13.0 Hematocrit 39.1 MCV 92.9 MCH 30.9 MCHC 33.2 RDW 12.5 Platelets 239 MPV 8.8 (*) nRBC 0.0 Neutrophils Relative 69.4 Lymphocytes Relative 22.3 Monocytes Relative 6.3 Eosinophils Relative 1.1 Basophils Relative 0.4 Immature Grans % 0.5 Neutrophils Absolute 5.9 Lymphocytes Absolute 1.9 Monocytes Absolute 0.5 Eosinophils Absolute 0.1 Basophils Absolute 0.0 Immature Grans Absolute 0.0 COMPLETE URINALYSIS WITH REFLEX TO CULTURE - Normal Color, Urine Light Yellow Clarity, Urine Clear pH, Urine 6.0 Leukocytes, Urine Negative Nitrite, Urine Negative Protein, Urine Negative Glucose, Urine Normal Bilirubin, Urine Negative Ketones, Urine Negative Urobilinogen, Urine Normal Blood, Urine Negative SPECIFIC GRAVITY OF URINE (NUMERIC) 1.019 Narrative: A specimen with <=10 WBC is not consistent with inflammation. This specimen will not reflex to a urine culture. LIPASE - Normal LIPASE 29 HCG QUALITATIVE URINE HCG,URINE QUAL Negative Narrative: is the most common reason for HCG in urine, although choriocarcinoma, hydatidiform mole, and certain nontrophoblastic malignancies also result in detectable urinary HCG levels. Sensitivity = 20mIU/mL. BLOOD TYPE AND SCREEN GEL ABO Grouping A Antibody Screen NEG Rh Type POS All other labs were within normal range or not returned as of this dictation. EMERGENCY DEPARTMENT COURSE and DIFFERENTIAL DIAGNOSIS/MDM: Vitals: Vitals: 05/20/25 1604 05/20/25 1606 05/20/25 1805 BP: 123/79 (!) 143/114 Pulse: 92 101 Resp: 19 13 Temp: 36.9 C (98.5 F) TempSrc: Oral SpO2: 99% 99% 98% Weight: 99.8 kg (220 lb) Height: 1.6 m (5' 3) The patient presented with a chief complaint of severe sudden onset abdominal pain with ventral hernia. The differential diagnosis associated with this patient's presentation includes hernia, hernia with incarceration, hernia with strangulation, other abdominal problem. Our workup consisted of ordering/reviewing labs and imaging. Given morphine for pain. Reglan for nausea. Potassium 3.1 so replenished with 40 mill equivalents. Otherwise CBC, CMP and lipase are all unremarkable. Normal urinalysis. CT abdomen pelvis shows ventral fatty hernias. Also showing partial intussusception. Consulted surgery. Suspicious that patient may be developing obstruction. Has required multiple pain medications and antinausea medications. Other labs are unremarkable including white count, lipase. Patient will be admitted to medicine with peripheral surgery following. Diagnoses as of 05/20/252011 Periumbilical abdominal pain External records reviewed: Inpatient notes multiple ED visits and admissions for generalized abdominal pain. Did have an abdominal wall seroma that had to be ultrasound-guided drained in November. Diagnostics interpreted by me: CT scan(s) as above Discussions with other clinicians: Surgery, medicine Chronic conditions impacting care: Diabetes and previous hernias Social determinants of health affecting care: none ED Medications managed: Medications promethazine (Phenergan) injection 6.25 mg (has no administration in time range) HYDROmorphone (Dilaudid) injection 1 mg (has no administration in time range) morphine injection 8 mg (8 mg IntraVENous Given 05/20/25 163) sodium chloride 0.9 % bolus 1,000 mL (0 mL IntraVENous Stopped 05/20/25 172) metoclopramide (Reglan) injection 10 mg (10 mg IntraVENous Given 05/20/25 1632) potassium chloride CR (Klor-Con M10) ER tablet 40 mEq (40 mEq Oral Given 05/20/25 1729) HYDROmorphone (Dilaudid) injection 1 mg (1 mg IntraVENous Given 05/20/25 1727) iopamidol (Isovue-370) 76 % injection 75 mL (75 mL IntraVENous Given 05/20/25 1757) Prescription drugs considered: Pain medication morphine PROCEDURES: Unless otherwise noted below, none Procedures FINAL IMPRESSION 1. Periumbilical abdominal pain DISPOSITION Admit 05/20/2025 08:12:28 PM PATIENT REFERRED TO: No follow-up provider specified. DISCHARGE MEDICATIONS: New Prescriptions No medications on file (Comment: Please note this report has been produced using speech recognition software and may contain errors related to that system including errors in grammar, punctuation, and spelling, as well as words and phrases that may be inappropriate. 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 Partial obstruction of small intestine (HCC) 06/13/2024 [2] Past Surgical History: Procedure Laterality Date APPENDECTOMY BILIOPANCREATIC DIVERSION 10/23/2008 Sherie @ [facility]; janel-en-y duodenojejunostomy for bile reflux CHOLECYSTECTOMY 02/2007 lap COLONOSCOPY N/A 11/29/2023 [facility]; repeat in 11/2033 EXPLORATORY LAPAROTOMY 06/10/2019 Veronica @ [facility]; ex lap, [facility] INCISION AND DRAINAGE OF WOUND 08/09/2013 [facility]; I&D of surgical incision of LLQ INCISIONAL HERNIA REPAIR 10/20/2017 [facility]; open primary repair INCISIONAL HERNIA REPAIR 07/12/2018 [facility]; open w/ mesh INCISIONAL HERNIA REPAIR 09/26/2018 [facility]; lap w/ mesh INCISIONAL HERNIA REPAIR 03/11/2020 [facility]; repair w/ mesh excision, mesh replacement ([facility] Mesh w/ Echo), WAI INCISIONAL HERNIA REPAIR 07/19/2015 [facility]; open repair w/ mesh INCISIONAL HERNIA REPAIR 08/07/2024 [facility]; an open recurrent repair w/ mesh, [facility], TAR, removal of infarcted cecal epiploic appendage PANNICULECTOMY (HISTORICAL) 08/07/2024 [facility] SOFT TISSUE MASS EXCISION 08/02/2013 [facility]; STM excision of LLQ TONSILLECTOMY [3] Family History Problem Relation Name Age of Onset Hypertension Father Diabetes Father [4] Social History Socioeconomic History Marital status: Tobacco Use Smoking status: Former Types: Cigarettes Smokeless tobacco: Never Substance and Sexual Activity Alcohol use: Not Currently Drug use: Yes Frequency: 2.0 times per week Types: Marijuana Comment: edibles Sexual activity: Not Currently Social Drivers of Health Financial Resource Strain: High Risk (04/24/2024) Overall Financial Resource Strain (CARDIA) Difficulty of Paying Living Expenses: Very hard Food Insecurity: Patient Declined (04/26/2024) Hunger Vital Sign Worried About Running Out of Food in the Last Year: Patient declined Ran Out of Food in the Last Year: Patient declined Recent Concern: Food Insecurity - Food Insecurity Present (04/24/2024) Hunger Vital Sign Worried About Running Out of Food in the Last Year: Often true Ran Out of Food in the Last Year: Often true Transportation Needs: Patient Declined (04/26/2024) PRAPARE - Transportation Lack of Transportation (Medical): Patient declined Lack of Transportation (Non-Medical): Patient declined Recent Concern: Transportation Needs - Unmet Transportation Needs (04/24/2024) PRAPARE - Transportation Lack of Transportation (Medical): Yes Lack of Transportation (Non-Medical): Yes Physical Activity: Sufficiently Active (04/24/2024) Exercise Vital Sign Days of Exercise per Week: 7 days Minutes of Exercise per Session: 60 min Stress: Stress Concern Present (04/24/2024) [employer] [place] [employer] - Occupational Stress Questionnaire Feeling of Stress : Very much Social Connections: Moderately Integrated (04/24/2024) Social Connection and Isolation Panel [NHANES] Frequency of Communication with Friends and Family: Twice a week Frequency of Social Gatherings with Friends and Family: Once a week Attends [employer]ism Services: More than 4 times per year Active Member of Clubs or Organizations: No Attends Club or Organization Meetings: More than 4 times per year Marital Status: Intimate Partner Violence: Not At Risk (05/10/2025) Humiliation, Afraid, Rape, and Kick questionnaire Fear of Current or Ex-Partner: No Emotionally Abused: No Physically Abused: No Sexually Abused: No Housing Stability: Unknown (04/26/2024) Housing Stability Vital Sign Unable to Pay for Housing in the Last Year: Patient declined Number of Times Moved in the Last Year: 1 Homeless in the Last Year: No Recent Concern: Housing Stability - High Risk (04/24/2024) Housing Stability Vital Sign Unable to Pay for Housing in the Last Year: Yes Number of Times Moved in the Last Year: 1 Homeless in the Last Year: No Rose Edward DO Resident 05/20/252011 Cosigned by Susan Ratliff MD at 05/21/2025 12:24 AM EDT [facility] 05-20-2025 Physician Emergency department Note Emergency Department Encounter [facility] EMERGENCY DEPT Patient: Mel Wall : 1985 Date of Evaluation: 05/20/2025 ED Supervising Physician: Susan Ratliff MD I personally evaluated Mel Wall and made/approved the management plan and take responsibility for the patient management. This will serve as my Supervisory note and shared attestation. I did perform a substantive portion of the visit including all aspects of the Medical Decision Making. I wore appropriate PPE for the entirety of this encounter. In brief, Mel Wall is a 39 y.o. that presents to the emergency department with abdominal pain. Patient states that her abdominal pain started today. Has a history of numerous hernias, with several surgical repairs. Had an abdominal wall reconstruction surgery recently. States she was on the toilet trying to have a bowel movement when she began to have periumbilical abdominal pain. States she has not had a bowel movement since yesterday. Has had water bowel movement. No blood in her stool. No nausea or vomiting. Focused exam: Patient awake alert, in distress secondary pain. Lungs clear to auscultation bilateral. Heart regular rate and rhythm. Abdomen is soft, significant amount of tenderness particularly in periumbilical area with palpable hernia with mesh able to be palpated. Brief ED course/MDM: Patient 39-year-old female with history of numerous abdominal wall hernias who presents with abdominal pain after bowel movement. Palpable hernia. Did not attempt to reduce it as there is mesh lining and that the concern is that bowel could be disrupted if a significant pressure was applied. Will plan on obtaining abdominal laboratory workup, CT abdomen pelvis and I reevaluate. Treat pain. Diagnostics interpreted by me: none I personally discussed the patient's management with other clinicians: none All diagnostic, treatment, and disposition decisions were made by myself in conjunction with the Resident. I also supervised solares portions of any procedures performed by the Resident. For all further details of the patient's emergency department visit, please see their documentation. (Comment: Please note this report has been produced using speech recognition software and may contain errors related to that system including errors in grammar, punctuation, and spelling, as well as words and phrases that may be inappropriate. If there are any questions or concerns please feel free to contact the dictating provider for clarification.) Susan Ratliff MD Acute Care [facility] Susan Ratliff MD 05/20/25 17[address] [facility] [employer] Work Phone: 05-13-2025 Telephone encounter Note Images from the original note were not included. [facility] 05-13-2025 Miscellaneous Notes Images from the original note were not included. Per Dr. Taylor, rec'd referral to [facility]. Referral placed. Deisi, please facilitate. Thanks. documented in this encounter [facility] 05-11-2025 Nurse Note Patient discharged home with instructions, verbalized understanding and transported to exit by staff in . [facility] 05-11-2025 Nurse Note Patient discharged home with instructions, verbalized understanding and transported to exit by staff in . documented in this encounter [facility] 05-11-2025 Hospital Discharge instructions Derek Henning RN - 05/11/2025 10:21 AM EDT Images from the original note were not included. Continuity of Care Form Patient Name: Mel Wall : 1985 Admit date: 05/09/2025 Discharge date 05/11/2025 Code Status Order: Full Code Advance Directives: N Admitting Physician: Zana Ayala DO PCP: No primary care provider on file. Discharging Nurse: Gerald Harleyarging [facility] Unit/Room#: N4-463/N4-463 A Discharging Unit Emergency Contact: Extended Emergency Contact Information Primary Emergency Contact: nilton loredo [address] [address] [place] [address] [place] Relation: Significant Other Past Surgical History: Past Surgical History: Procedure Laterality Date APPENDECTOMY BILIOPANCREATIC DIVERSION 10/23/2008 Sherie @ [facility]; janel-en-y duodenojejunostomy for bile reflux CHOLECYSTECTOMY 02/2007 lap COLONOSCOPY N/A 11/29/2023 [facility]; repeat in 11/2033 EXPLORATORY LAPAROTOMY 06/10/2019 Veronica @ [facility]; ex lap, [facility] INCISION AND DRAINAGE OF WOUND 08/09/2013 [facility]; I&D of surgical incision of LLQ INCISIONAL HERNIA REPAIR 10/20/2017 [facility]; open primary repair INCISIONAL HERNIA REPAIR 07/12/2018 [facility]; open w/ mesh INCISIONAL HERNIA REPAIR 09/26/2018 [facility]; lap w/ mesh INCISIONAL HERNIA REPAIR 03/11/2020 ; repair w/ mesh excision, mesh replacement ([facility]ent[facility] St Mesh w/ Echo), WAI INCISIONAL HERNIA REPAIR 07/19/2015 [facility]; open repair w/ mesh INCISIONAL HERNIA REPAIR 08/07/2024 [facility]; an open recurrent repair w/ mesh, [facility], TAR, removal of infarcted cecal epiploic appendage PANNICULECTOMY (HISTORICAL) 08/07/2024 [facility] SOFT TISSUE MASS EXCISION 08/02/2013 [facility]; STM excision of LLQ TONSILLECTOMY Immunization History: Immunization History Administered Date(s) Administered Influenza, injectable, quadrivalent, preservative free 07/10/2019 Influenza, injectible, quadrivalent, preservative free 06/29/2023 Influenza, seasonal, injectable 10/10/2018 Influenza, seasonal, injectable, preservative free 08/02/2013, 10/12/2017, 2018 Pneumococcal Conjugate PCV 13 07/10/2013 Active Problems: Medical Problems Problem List * (Principal) Intractable abdominal pain Morbid obesity (HCC) Anxiety Pain Overview Signed 06/13/2024 8:40 AM by Louise Jimenez Seeing [facility]: Dr. Moore Chronic post-traumatic stress disorder (PTSD) Cyclic vomiting syndrome Depression Overview Signed 06/13/2024 8:40 AM by Louise Jimenez Seeing counseling Center. Dr. Esteves Elevated blood pressure reading without diagnosis of hypertension Gastroesophageal reflux disease Generalized anxiety disorder Headache Hypokalemia due to excessive gastrointestinal loss of potassium Impacted cerumen Injury of foot Injury of right shoulder Menstrual period late Migraine with aura Mixed obsessional thoughts and acts Narcotic drug use Nausea, vomiting, and diarrhea Obesity, Class III, BMI 40-49.9 (morbid obesity) Obstructive sleep apnea syndrome Panic disorder with agoraphobia Psychogenic hyperventilation Recurrent major depressive disorder, in partial remission (HCC) Sepsis (HCC) Shoulder pain Sinus tachycardia by electrocardiography Social phobia Strain of knee Syncope Type 2 diabetes mellitus (HCC) Isolation/Infection: No active isolations No active infections Nurse Assessment: Last Vital Signs: BP 121/82 (BP Location: Left arm, Patient Position: Sitting) Pulse 70 Temp 36.6 C (97.8 F) (Temporal) Resp 16 Ht 1.651 m (5' 5) Wt 99.8 kg (220 lb) SpO2 97% BMI 36.61 kg/m Last documented pain score (0-10 scale): Last Weight: Wt Readings from Last 1 Encounters: 05/09/25 99.8 kg (220 lb) Mental Status: {IRIS Patient Mental Status:03580} IV Access: {IRIS IV Access:44789} Nursing Mobility/ADLs: Walking Independent Transfer Independent Bathing Independent Dressing Independent Toileting Independent Feeding Independent Nitriles Lab Technician Independent Med Delivery no Wound Care Documentation and Therapy: Wound/Incision 08/07/24 Incision Abdomen Midline (Active) Number of days: 277 Elimination: Continence: Bowel: {yes/no:11440} Bladder: {yes/no:60426} Urinary Catheter: {IRIS Urinary Catheter:66014} Colostomy/Ileostomy/Ileal Conduit: {YES / NO:} Date of Last BM: No intake or output data in the 24 hours ending 05/11/25 1020 I/O last 3 completed shifts: In: 250 (2.5 mL/kg) [IV Piggyback:250] Out: - (0 mL/kg) Weight: 99.8 kg Safety Concerns: {IRIS Safety Concerns:84498} Impairments/Disabilities: {IRIS Impairments/Disabilities:56209} Nutrition Therapy: Current Nutrition Therapy: {IRIS Diet List:88794} Routes of Feeding: {routes of feedin} Liquids: {liquid consistency:46540} Daily Fluid Restriction: {daily fluid restriction:40149} Last Modified Barium Swallow with Video (Video Swallowing Test): {done not done:31876} Treatments at the Time of Hospital Discharge: Respiratory Treatments: Oxygen Therapy: {Therapy; copd oxygen:79746} Ventilator: {IRIS Ventilator:63635} Rehab Therapies: {GEN THERAPY DISCIPLINE SCAL:1719527} Weight Bearing Status/Restrictions: {POD WEIGHT BEARIN} Other Medical Equipment (for information only, NOT a DME order): {Assistive Devices DME:26977} Other Treatments: Patient's personal belongings (please select all that are sent with patient): {IRIS Patient Belongings:99693} RN SIGNATURE: MANAGEMENT/SOCIAL WORK SECTION Inpatient Status Date: Discharging to Facility/ Agency Name: Address: Phone: Fax: Dialysis Facility (if applicable) Name: Address: Dialysis Schedule: Phone: Fax: Youth Minister/[employer] signature: {E-signature:70085} PHYSICIAN SECTION Name: Mel Duke Prognosis: {Rehab Prognosis:01239} Condition at Discharge: {Patient Condition:85653} Rehab Potential (if transferring to Rehab): {Rehab Prognosis:22248} Recommended Labs or Other Treatments After Discharge: The individual is being admitted to a nursing facility directly from an [facility] or a unit of a [facility] that is not operated by or licensed by [facility] under section 5119.14 or 5160-3-15.1 5 The individual requires the level of services provided by a nursing facility for the condition for which he or she was treated in the hospital and, Physician Certification: I certify the above information and transfer of Mel Wall is necessary for the continuing treatment of the diagnosis listed and that she requires {IRIS Level of Care:19648} for {greater less than:56584} 30 days. Update Admission H&P: {IRIS Changes in H&P:72568} PHYSICIAN SIGNATURE: {E-signature:22309} documented in this encounter [facility] 05-11-2025 Plan of care note Mel Wall is a 39 y.o. (: 1985) who was admitted to [facility] on 05/09/2025 and discharged today (05/11/25). Please excuse Mel Wall from work until they are medically cleared to return to work on Tuesday05/14/2025. Thanks, Dr. Zana Ayala [facility] [place] [employer] [facility] 05-11-2025 Miscellaneous Notes Mel Wall is a 39 y.o. (: 1985) who was admitted to [facility] on 05/09/2025 and discharged today (05/11/25). Please excuse Mel Wall from work until they are medically cleared to return to work on Tuesday05/14/2025. Thanks, Dr. Zaan Ayala [facility] [employer] Care Management Progress Note Short Medical why still here: pt adm for tx/evaluation of ventral hernia without obstruction or gangrene/abnormal CT of abd/intractable abd pain. Surgery following for intussusception. Surgery recommending NG placement however pt refusing. Remains on maintenance fluids. Started on clear liquids. Small bowel follow through being completed. Planned Discharge Disposition: pt from home indep at baseline. Pt has insurance. No needs antic. Barriers/Today we still Wait: pending diet tolerance/pain control. Pain mgmt consulted. Length of Stay (Days): 1 GMLOS: No GMLOS Documented [employer] Mel Wall : 1985 Primary Care Physician: No primary care provider on file. The patient and/or family/surrogate voluntarily agreed to participate in ACP services. Patient s cognitive capacity: Patient has full medical capacity at the time of my evaluation at time 2350. Code Status: [x] [FULL CODE - Continue all advanced life support: CPR,intubation,invasive procedures] [_] [DNR-CCA - DO NOT do CPR, intubation] [_] [DNR-GAS APPLIANCE REPAIRER - Comfort care only] [_] DNR form [was/was not] signed Summary of discussion: The patient health care POA/ surrogate is the following: none in chart. Patient with a history of multiple prior abdominal surgeries admitted for abdominal pain. Advanced care planning discussion was had in this setting, and patient wishes to be Full Code at this time. I answered all the patient/family questions that I could within the range and scope of the current medical situation. We discussed the medical conditions, risks, benefits, outcomes, and goals of care at this time for the patient's medical issues at hand in the face of the patient's chronic issues and current presentation. Total time spent: 16 minutes were spent discussing the patient's resuscitation status, advance care planning, and end of life care, with patient and/or family/surrogate. Sami Rodriguez MD [facility] 05/10/2025, 1:54 AM documented in this encounter [facility] 05-11-2025 Note [facility] 05-11-2025 Hospital course Narrative Hospitalist Discharge Summary - [facility] ([facility] [place]) Mel Wall : 1985 Admit date: 05/09/2025 Discharge date: 05/11/2025 Admitting Physician: Zana Ayala DO Primary Care Physician: No primary care provider on file. Recommended Follow-up: No follow-up provider specified. Disposition: Patient discharged in stable condition. Greater than 31 minutes spent discharging the patient and coming up with patient discharge plan. Follow up with No primary care provider on file. in 1-2 weeks as appropriate. Hospital Course: Mel Wall is a 39 y.o. year old female with PMH below who presented initially to [facility] with Chief Complaint of abdominal pain. Lactate 3.5, K 3.3, and UA bland. CT abd/pelvis showed intussusception. She was transferred to [facility] for admission for further evaluation and management. Surgery consulted, recommended NG for decompression, however patient's symptoms improved and she declined NG. SBFT obtained. Surgery ok with advancing diet as tolerated. Patient positive for THC. Pain improved. Medically stable for discharge Discharge Diagnoses: Acute, acute on chronic, unstable/uncontrolled chronic problems/diagnoses: Abdominal pain, acute on chronic Cannabinoid hyperemesis syndrome Nausea and vomiting Lactic acidosis, resolved Hypokalemia, resolved Stable chronic problems affecting care, new non-acute diagnoses: Depression Body mass index is 36.61 kg/m ., BMI Classification: Class 3 obesity (BMI of 35 or higher and is experiencing obesity-related health conditions) Adult diet Regular; Low Fiber Vitals: BP 121/82 (BP Location: Left arm, Patient Position: Sitting) Pulse 70 Temp 36.6 C (97.8 F) (Temporal) Resp 16 Ht 5' 5 (1.651 m) Wt 220 lb (99.8 kg) SpO2 97% BMI 36.61 kg/m Pulse Ox: SpO2 Av % Min: 97 % Max: 99 % Supplemental O2: GENERAL: in bed without acute distress CARDIOVASCULAR: RRR no rubs RESPIRATORY: good breath sounds throughout ABDOMEN: non-tender, no acute abd pain EXTREMITIES: no open wounds Recent Labs 05/09/25 1808 05/10/25 0336 05/11/25 0238 WBC 8.9 8.0 5.6 HGB 13.0 10.9* 11.2* PLT 222 228 234 Recent Labs 05/09/25 18005/10/256 05/11/25 0238 NA 140 137 137 K 3.3* 3.7 4.0 CL 107 109* 109* CO2 20* 19* 21* BUN 10 8 8 CREATININE 0.65 0.58 0.52* GLUCOSE 106* 108* 98 Recent Labs 05/09/251807 AST 14 ALT 11 BILITOT 0.2 ALKPHOS 41 No results found for: TRIG, HDL, LDLCALC, CHOL No results found for: PHART, PO2ART, DOG9MYR No results for input(s): INR in the last 72 hours. No results for input(s): DDIMER in the last 72 hours. No results found for: HGBA1C No results found for: TSH Urine Culture: No results found for this or any previous visit. Imaging: FL SMALL BOWEL SERIES Result Date: 05/10/2025 Patient Name: MEL WALL : 1985 Exam Date/Time: 05/10/2025 08:12 Procedure: FL SMALL BOWEL SERIES Ordering Provider: YEN THOMAS Reason For Exam: r/o SBO/intusseception GASTROGRAFIN SMALL BOWEL SERIES History: Small bowel obstruction, intussusception. Comparison: CT abdomen/pelvis 05/09/2025. Technique: Gastrografin was instilled orally, sequential films of the abdomen were obtained. Fluoroscopy time: Fluoroscopy was not utilized during the study. Images: 10 Findings: The preliminary film demonstrates a nonspecific bowel gas pattern.The stomach and duodenal bulb are not adequately seen for proper evaluation. Evaluation of bowel mucosa is limited due to the use of Gastrografin. There is prompt flow of contrast in the jejunum and ileal loops. Mildly dilated loops of proximal small bowel are noted. Contrast reached the colon in 2.5 hours. Mildly dilated loops of proximal bowel, significance uncertain. Transit time to colon 2.5 hours. Recommend follow-up.. Report Dictated on Electronically Signed By: Regis Chakraborty MD Electronically Signed Date/Time: 05/10/2025 2:[address] abdomen pelvis w contrast Result Date: 05/09/2025 Patient Name: [facility]EL [facility]ALL : 1985 [id number] Exam Date/Time: 05/09/2025 18:43 Procedure: CT ABDOMEN PELVIS W CONTRAST Ordering Provider: PARSONS KAITLYN Reason For Exam: concern for pop inthe abdomen per pt where she had a hernia and mesh repair CT ABDOMEN AND PELVIS Indication: Hernia repair performed July 2024. Patient felt a pop in abdomen and now has severe pain with vomiting. Appendectomy. Cholecystectomy. Multiple hernia repairs. Tubal ligation. Scan Parameters: Multiple axial CT images were obtained of the abdomen and pelvis. Coronal and sagittal reconstructions were reviewed as well. ALARA protocol. Dose reduction was employed with automated exposure control. Contrast: 75 mL of Isovue-370 IV contrast; no GI contrast Comparison: CT abdomen and pelvis 04/29/2025 FINDINGS: The lung bases are clear. The heart is not enlarged. There are no atherosclerotic calcifications along the aorta or branches. There is a stable 1.3 cm sclerotic focus in T9, unchanged from 09/13/2023. The gallbladder is absent. Mild intrahepatic and extrahepatic biliary duct distention likely sequela from cholecystectomy. The liver, pancreas, spleen, and adrenal glands are within normal limits. There is mild nodularity of the adrenal glands, unchanged. There is no hydronephrosis. Punctate right renal calculi are present. Bilateral renal cysts appear similar to prior exam, no follow-up required. The bladder contour is normal, no bladder wall thickening. The uterus is anteverted and approximates the ventral abdominal wall. Bilateral tubal ligation clips noted. Limited evaluation of the ovaries with follicular cystic changes. The appendix is not visualized, no CT evidence for appendicitis. There is a small sliding-type hiatal hernia. There is a postsurgical small bowel anastomosis at the midline (previous location left abdomen on 04/29/2025), with eccentric circumferential wall thickening which could represent partial intussusception versus mass and/or inflammation. There is no free air and no free fluid. Ventral hernia repair changes. There is diastases of the abdominal rectus muscle at the midline with a small fatty ventral hernias. There is no adenopathy. 1. There is a postsurgical small bowel anastomosis at the midline (previous location left abdomen on 04/29/2025), with eccentric circumferential wall thickening which could represent partial intussusception versus mass and/or inflammation. If pain persists, consider follow-up imaging with GI contrast and/or GI consultation. 2. Ventral hernia repair changes with multiple ventral fatty hernias. 3. Nonobstructive right renal calculus. No hydronephrosis. 4. Additional findings, as above. Report Dictated on Electronically Signed By: Michelle Velazquez MD Electronically Signed Date/Time: 05/09/2025 7:16 PM EDT Consults: IP CONSULT TO GENERAL SURGERY IP CONSULT TO ANESTHESIOLOGY - ACUTE PAIN SERVICE Discharge Medications: Medication List START taking these medications oxyCODONE 5 MG immediate release tablet Commonly known as: Roxicodone Take 1 tablet (5 mg) by mouth every 6 hours as needed for moderate pain (4-6) or severe pain (7-10) for up to 3 days. CONTINUE taking these medications acetaminophen 325 MG tablet Commonly known as: Tylenol Notes to patient: As Needed FLUoxetine 20 MG capsule Commonly known as: PROzac Notes to patient: Take tomorrow 05/12/2025 hydrOXYzine HCl 25 MG tablet Commonly known as: Atarax Take 1 tablet (25 mg) by mouth every 8 hours as needed for itching for up to 7 days. Notes to patient: As Needed ASK your doctor about these medications albuterol 108 (90 Base) MCG/ACT inhaler Notes to patient: As Needed Where to Get Your Medications These medications were sent to [id number] - [place] [id number] [address] [address] oxyCODONE 5 MG immediate release tablet Signed: Zana Ayala DO 05/11/2025, 12:53 PM documented in this encounter [facility] 05-11-2025 History of Present illness Narrative Hospitalist Progress Note - [facility] ([facility] [place]) 05/11/2025 9:27 AM [phone]: Please page me for patient care issues. [phone]: Please page [facility] Hospitalist - [facility] for any issues. Subjective and Objective: Admit Date: 05/09/2025 PCP: No primary care provider on file. Chief Complaint Patient presents with Abdominal Pain Pt states she was at work today when she stood up and felt a pop in her RLQ. PT reports pain and nausea. Pt states she had a hernia repair in Jul. Adult diet Regular; Low Fiber Dietary Orders (From admission, onward) Start Ordered 05/11/25902 Adult diet Regular; Low Fiber Diet effective now Question Answer Comment Diet type Regular Fiber: Low Fiber 05/11/25 09 I/O last 3 completed shifts: In: 250 (2.5 mL/kg) [IV Piggyback:250] Out: - (0 mL/kg) Weight: 99.8 kg @IODETAILS@ @[id number]@ Medications: Continuous Meds[1] Scheduled Meds[2] Recent Labs 05/09/25180705/10/256 05/11/25 0238 WBC 8.9 8.0 5.6 HGB 13.0 10.9* 11.2* PLT 222 228 234 Recent Labs 05/09/25180705/10/256 05/11/25 0238 NA 140 137 137 K 3.3* 3.7 4.0 CL 107 109* 109* CO2 20* 19* 21* BUN 10 8 8 CREATININE 0.65 0.58 0.52* GLUCOSE 106* 108* 98 Recent Labs 05/09/251807 AST 14 ALT 11 BILITOT 0.2 ALKPHOS 41 No results found for: TRIG, HDL, LDLCALC, CHOL No results found for: PHART, PO2ART, VMB5FYU No results for input(s): INR in the last 72 hours. No results for input(s): CKTOTAL, CKMB, TROPONINI in the last 72 hours. No results for input(s): DDIMER in the last 72 hours. No results found for: HGBA1C No results found for: TSH Urine Culture: No results found for this or any previous visit. Objective: Vitals: BP 121/82 (BP Location: Left arm, Patient Position: Sitting) Pulse 70 Temp 36.6 C (97.8 F) (Temporal) Resp 16 Ht 5' 5 (1.651 m) Wt 220 lb (99.8 kg) SpO2 97% BMI 36.61 kg/m Pulse Ox: SpO2 Av % Min: 97 % Max: 99 % Supplemental O2: Past 24 hours events: GENERAL: in bed without acute distress CARDIOVASCULAR: RRR no rubs RESPIRATORY: good breath sounds throughout ABDOMEN: non-distended EXTREMITIES: no open wounds ANATOMY/TUBES/LINES: N/A Running Summary, Assessment, and Plan Mel Wall is a 39 y.o. year old female with PMH below who presented initially to [facility] with Chief Complaint of abdominal pain. Lactate 3.5, K 3.3, and UA bland. CT abd/pelvis showed intussusception. She was transferred to [facility] for admission for further evaluation and management. Surgery consulted, recommended NG for decompression, however patient's symptoms improved and she declined NG. SBFT obtained. Surgery ok with advancing diet as tolerated. Patient positive for THC. Pain improved. Medically stable for discharge Acute, acute on chronic, unstable/uncontrolled chronic problems/diagnoses: Abdominal pain, acute on chronic Cannabinoid hyperemesis syndrome Nausea and vomiting Lactic acidosis, resolved Hypokalemia, resolved Stable chronic problems affecting care, new non-acute diagnoses: Depression Body mass index is 36.61 kg/m ., BMI Classification: Class 3 obesity (BMI of 35 or higher and is experiencing obesity-related health conditions) As a result of the above findings & factors, the following mgmt was pursued: - Surgery advanced diet - IV LR at 100 - SBFT ordered - Urine tox positive for THC - Repeat AM Lactate WNL - Likely taper down narcotics next 24 hours - am labs, replace lytes prn - PT/OT/CM/SW as appropriate - delirium precautions: limit night-time awakening - DVT prophylaxis: Lovenox Complexity: Acute illness or injury posing a threat to life or body function (HIGH). Risk: Admission to hospital-level care was considered or occurred (HIGH). Advance Directive: Full Anticipated Discharge - Date - 05/11 - 05/13 - Location - home - Pending the following - surgery recs Total time spent (which include face to face and non face to face encounters) in minutes: 52 Toxic drug monitoring/narrow therapeutic index drug monitoring : # Drug name : Dilaudid # Route administered : IV # Method of monitoring : vitals for respiratory rate and for lethargy Extended Emergency Contact Information Primary Emergency Contact: nilton loredo Address: [address] [place] [address] Mobile Relation: Significant Other Zana Ayala DO Division of Hospitalist Medicine Inpatient Medical Services/[facility] [place] [1] lactated Ringer's, 100 mL/hr, Last Rate: 100 mL/hr (05/10/252016) [2] acetaminophen, 1,000 mg, IntraVENous, 4 times per day enoxaparin, 40 mg, SubCUTAneous, Daily FLUoxetine, 20 mg, Oral, Daily Nutrition rescreen completed. Patient referred to the Dietitian. Patient is NPO/CL > 3 days. NICKY Wong Department of General Surgery Daily Progress Note Surg 4 Service ADMIT DATE: 05/09/2025 TODAY'S DATE: 05/11/2025 SUBJECTIVE: NAEON. Pain improving, having lots of BMS. No fevers, chills/CP/SOB. OBJECTIVE: VITALS: BP 132/81 Pulse 81 Temp 36.7 C (98.1 F) (Temporal) Resp 16 Ht 5' 5 (1.651 m) Wt 220 lb (99.8 kg) SpO2 99% BMI 36.61 kg/m INTAKE/OUTPUT: I/O last 3 completed shifts: In: 250 (2.5 mL/kg) [IV Piggyback:250] Out: - (0 mL/kg) Weight: 99.8 kg No intake/output data recorded. PHYSICAL EXAM: Gen: NAD, A&Ox3, pain well controlled Heart: Well perfused Lungs: symmetric chest rise, normal work of breathing Abd: soft, minimally tender, non distended. Non rigid. Ext: no c/c/e no gross deformities Skin: warm, well perfused, no obvious rashes, cellulitis or gross discoloration LABS CBC: Recent Labs 07/31180705/10/256 05/11/25 0238 WBC 8.9 8.0 5.6 HGB 13.0 10.9* 11.2* HCT 38.4 33.1* 34.1* PLT 222 228 234 BMP: Recent Labs 05/09/25 18005/10/256 05/11/25 0238 NA 140 137 137 K 3.3* 3.7 4.0 CL 107 109* 109* CO2 20* 19* 21* BUN 10 8 8 CREATININE 0.65 0.58 0.52* GLUCOSE 106* 108* 98 Hepatic: Recent Labs 05/09/251807 AST 14 ALT 11 BILITOT 0.2 ALKPHOS 41 Current Inpatient Medications Scheduled Meds:Scheduled Meds[1] Continuous Infusions:Continuous Meds[2] PRN Meds:PRN Meds[3] ASSESSMENT AND PLAN: 39 y.o. female open recurrent IHR (08/07/24) w/ mesh, WAI, TAR, panniculectomy, removal or infarcted cecal epiploic appendage presenting with acute on sub-acute abdominal pain with c/f intussusception - No acute surgical intervention at this time - APS managing pain, patient will follow up with outpatient pain clinic upon discharge - OK for regular diet - Encourage ambulation - Patient okay for discharge from surgical perspective, surgery to sign off at this time please page with any further questions or concerns Patient discussed with attending, Dr. Roque longwall headgate operator for Dr. Miranda Jones MD General Surgery Resident 05/11/25 7:10 AM [1] acetaminophen, 1,000 mg, IntraVENous, 4 times per day enoxaparin, 40 mg, SubCUTAneous, Daily FLUoxetine, 20 mg, Oral, Daily [2] lactated Ringer's, 100 mL/hr, Last Rate: 100 mL/hr (05/10/252016) [3] PRN medications: HYDROmorphone OR HYDROmorphone, naloxone (Narcan) 0.4 mg in 0.9% sodium chloride 10 mL syringe, oxyCODONE, polyethylene glycol (PEG) 3350, promethazine Cosigned by Regis Roque MD at 05/11/2025 10:12 AM EDT Associated attestation - Regis Roque MD - 05/11/2025 10:12 AM EDT Images from the original note were not included. [facility] - Surgery [facility] Physicians Surgery Patient Name: Mel Wall Date: 05/11/25 Doing well today, pain control improved. Multiple bowel movements. Tolerating clears. Family at bedside. No concerns. She feels much better than when she came in. BP 121/82 (BP Location: Left arm, Patient Position: Sitting) Pulse 70 Temp 36.6 C (97.8 F) (Temporal) Resp 16 Ht 5' 5 (1.651 m) Wt 220 lb (99.8 kg) SpO2 97% BMI 36.61 kg/m CBC: Recent Labs 05/09/25180705/10/25 0336 05/11/25 0238 WBC 8.9 8.0 5.6 HGB 13.0 10.9* 11.2* HCT 38.4 33.1* 34.1* PLT 222 228 234 BMP: Recent Labs 05/09/25180705/10/25 0336 05/11/25 0238 NA 140 137 137 K 3.3* 3.7 4.0 CL 107 109* 109* CO2 20* 19* 21* BUN 10 8 8 CREATININE 0.65 0.58 0.52* GLUCOSE 106* 108* 98 Hepatic: Recent Labs 05/09/251807 ALKPHOS 41 ALT 11 AST 14 PROT 7.3 BILITOT 0.2 Abdomen: Soft, approp. tender, nondistended. Plan: Abdominal pain, improved Small bowel follow-through unremarkable Advance diet Pain control Okay to discharge per general surgery All questions answered, data reviewed including results of small bowel follow-through and she is appreciative of the care she received. I personally supervised my Resident/Surgical Fellow in the evaluation and management of Mel Wall in the development of a treatment plan for this patient. I personally interviewed the patient and performed an individual physical examination. In addition, I discussed the patient's condition and treatment options with them. I have also reviewed and agree with the past medical, family and social history and care plan unless otherwise noted. All of the patient's questions were answered. Total time of 35 minutes spent reviewing the patient's chart, associated and relevant data including labs and imaging as well as discussing/counseling the patient regarding the care plan for this patient. The patient was seen and examined independently and relevant data reviewed by myself. A full chart review was performed. Hospitalist Progress Note - [facility] - [facility] ([facility]) 05/10/2025 8:09 AM [phone]: Please page me for patient care issues. [phone]: Please page [facility] Hospitalist - [facility] [place] for any issues. Subjective and Objective: Admit Date: 05/09/2025 PCP: No primary care provider on file. Chief Complaint Patient presents with Abdominal Pain Pt states she was at work today when she stood up and felt a pop in her RLQ. PT reports pain and nausea. Pt states she had a hernia repair in Jul. NPO diet with enteral medications Dietary Orders (From admission, onward) Start Ordered 05/10/25151 NPO diet with enteral medications Diet effective now Question: Medications? Answer: with enteral medications 05/10/25150 I/O last 3 completed shifts: In: 250 (2.5 mL/kg) [IV Piggyback:250] Out: - (0 mL/kg) Weight: 99.8 kg @IODETAILS@ @[id number]@ Medications: Continuous Meds[1] Scheduled Meds[2] Recent Labs 05/09/25180705/10/25335 WBC 8.9 8.0 HGB 13.0 10.9* PLT 222 228 Recent Labs 05/09/25180705/10/25335 NA 140 137 K 3.3* 3.7 CL 107 109* CO2 20* 19* BUN 10 8 CREATININE 0.65 0.58 GLUCOSE 106* 108* Recent Labs 05/09/251807 AST 14 ALT 11 BILITOT 0.2 ALKPHOS 41 No results found for: TRIG, HDL, LDLCALC, CHOL No results found for: PHART, PO2ART, [id number] No results for input(s): INR in the last 72 hours. No results for input(s): CKTOTAL, CKMB, TROPONINI in the last 72 hours. No results for input(s): DDIMER in the last 72 hours. No results found for: HGBA1C No results found for: TSH Urine Culture: No results found for this or any previous visit. Objective: Vitals: BP 119/75 (BP Location: Left arm, Patient Position: Sitting) Pulse 82 Temp 36.5 C (97.7 F) (Temporal) Resp 16 Ht 5' 5 (1.651 m) Wt 220 lb (99.8 kg) SpO2 98% BMI 36.61 kg/m Pulse Ox: SpO2 Av.6 % Min: 98 % Max: 99 % Supplemental O2: Past 24 hours events: requesting higher Dilaudid doses GENERAL: calm CARDIOVASCULAR: no palpitations, regular RESPIRATORY: no rhonchi or crackles ABDOMEN: non-distended, painful EXTREMITIES: moving spontaneously ANATOMY/TUBES/LINES: N/A Running Summary, Assessment, and Plan Mel Wall is a 39 y.o. year old female with PMH below who presented initially to [facility] ED with Chief Complaint of abdominal pain. Lactate 3.5, K 3.3, and UA bland. CT abd/pelvis showed intussusception. She was transferred to [facility] for admission for further evaluation and management. Surgery consulted, recommended NG for decompression, however patient's symptoms improved and she declined NG. SBFT Acute, acute on chronic, unstable/uncontrolled chronic problems/diagnoses: Abdominal pain Nausea and vomiting Intussusception Lactic acidosis Hypokalemia Possible Cannabinoid hyperemesis syndrome related Stable chronic problems affecting care, new non-acute diagnoses: Depression Body mass index is 36.61 kg/m ., BMI Classification: Class 3 obesity (BMI of 35 or higher and is experiencing obesity-related health conditions) As a result of the above findings & factors, the following mgmt was pursued: - Surgery following - CLD - IV LR at 100 - SBFT ordered - Urine tox pending - Repeat AM Lactate - Likely taper down narcotics next 24 hours - am labs, replace lytes prn - PT/OT/CM/SW as appropriate - delirium precautions: limit night-time awakening - DVT prophylaxis: Lovenox Complexity: Acute illness or injury posing a threat to life or body function (HIGH). Risk: Admission to hospital-level care was considered or occurred (HIGH). Advance Directive: Full Anticipated Discharge - Date - 05/11 - 05/13 - Location - home - Pending the following - surgery recs Total time spent (which include face to face and non face to face encounters) in minutes: 51.5 Toxic drug monitoring/narrow therapeutic index drug monitoring : # Drug name : Dilaudid # Route administered : IV # Method of monitoring : vitals for respiratory rate and for lethargy Extended Emergency Contact Information Primary Emergency Contact: nilton loredo Address: [address] [place] [address] Mobile Relation: Significant Other Zana Ayala DO [facility] [place] [1] lactated Ringer's, 100 mL/hr, Last Rate: 100 mL/hr (05/10/25 0351) [2] enoxaparin, 40 mg, SubCUTAneous, Daily FLUoxetine, 20 mg, Oral, Daily lidocaine, , Topical, Once oxymetazoline, 2 spray, Each Nostril, Once Patient seen and evaluated. Recommended NGT for decompression and protection of future emesis. Pt is understanding of the risks including aspiration, need for surgery, and and would like to withhold placement of NGT. She is amenable for future NGT placement she states If she feels nauseous again or throws up. Full consult note to follow Scot Casanova MD PGY-2, General Surgery Resident Pager # [phone] 05/10/25 documented in this encounter [facility] 05-10-2025 Note Per nahum Sullivan 'd referral to Comprehensive pain management. Referral placed. Deisi, please facilitate. Thanks. [facility] 05-10-2025 Telephone encounter Note Per nahum Sullivan'd referral to Comprehensive pain management. Referral placed. Deisi, please facilitate. Thanks. [facility] 05-10-[address] Taylor, rec'd referral to Comprehensive pain management. Referral placed. Deisi, please facilitate. Thanks. documented in this encounter [facility] 05-10-2025 Progress note Formatting of t his note might be different from the original. Care Management Progress Note Short Medical why still here: pt adm for tx/evaluation of ventral hernia without obstruction or gangrene/abnormal CT of abd/intractable abd pain. Surgery following for intussusception. Surgery recommending NG placement however pt refusing. Remains on maintenance fluids. Started on clear liquids. Small bowel follow through being completed. Planned Discharge Disposition: pt from home indep at baseline. Pt has insurance. No needs antic. Barriers/Today we still Wait: pending diet tolerance/pain control. Pain mgmt consulted. Length of Stay (Days): 1 GMLOS: No GMLOS Documented [facility] 05-10-2025 Consult note Associated Order (s): IP CONSULT TO GENERAL SURGERY Department of General Surgery Surgical Service - 4 (ALS) Resident Consult Note 05/10/2025 Subjective Subjective: CHIEF COMPLAINT: Chief Complaint Patient presents with Abdominal Pain Pt states she was at work today when she stood up and felt a pop in her RLQ. PT reports pain and nausea. Pt states she had a hernia repair in Jul. Reason for Consult: known surgical patient, concern for CT findings and abd pain with rising lactate HISTORY OF PRESENT ILLNESS: Mel Wall is a 39 y.o. female with significant past medical history of anxiety, depression, bipolar, obesity s/p biliopancreatic diversion (retrocollic janel limb with a duodenojejunostomy in the right upper quadrant seen on previous operative exploration without hinojosa's defect), and incision hernia repair s/p TAR 08/07/24 who presents with popping sensation in RLQ and associated N/V. Surgery was consulted for evaluation of above. Per chart review patient was last seen in office 09/28/2024 and last seen in hospital consultation 02/21/25. At office visit after open recurrent IHR (08/07/24) w/ mesh, WAI, TAR, panniculectomy, removal or infarcted cecal epiploic appendage. At this time she has increased pain and abdominal swelling with c/f seroma on imaging but without clinical signs. Patient states her pain began yesterday morning (05/09/25) around 0900 in the morning. It started as deep, epigastric/mid-abdomen burning, cramping like pain. It was fairly steady but not severe and patient went to work as normal. Around 1400 upon ambulation at work patient felt a strong popping like sensation around her lower/RLQ abdomen and had a sudden increase in her pain. She has not tried to have any solids since her pain but has kept liquids down over the past several hours. She has had some associated nausea and vomiting, with her most recent emesis around 2100 (05/09/25). She has additionally felt the need to defecate but has only passed some liquid that looked like stool tinged water. She also endorses some chill sensations. The pain and symptoms are the same as when she presented to the ED ten days prior (04/29/25), but more severe in nature. At that time she had the same type of pain as well as heavy menorrhagia without unusual discharge and without significant N/V at that time. She denies CP, SOB, dyspnea, fevers, urinary changes, or bloody bowel movements. On evaluation patient was: Ill appearing AF Vitals wnl and hds On RA Labs reviewed significant for: CMP minor electrolyte abnormalities Hypokalemia 3.3 HCO3- 20 LFT wnl Lactic Acid uptrending, 3.5 (3) CBC wnl UA wnl Imaging demonstrated: 05/09/25 CTAP w/ IV: Postsurgical changes Previous JJ site was left abdomen and is Now closer to midline Eccentric circumferential wall thickening at Anastomosis This was also seen to a degree on previous CT Intussusception vs mass and/or Inflammation 04/29/25 CTAP w/ IV: Postsurgical changes JJ anastomosis on left side of abdomen Circumferential thickening of small bowel at Anastomosis Medical History[1] Surgical History[2] Medications Prior to Admission: Medications Ordered Prior to Encounter[3] Allergies: Ketorolac, Ondansetron, and Seasonal Social History[4] Family History[5] REVIEW OF SYSTEMS: Review of Systems 11-point ROS completed, negative except as HPI Objective Objective: PHYSICAL EXAM: Vitals: 05/10/25 1153 BP: 136/84 Pulse: 75 Resp: 17 Temp: 36.5 C (97.7 F) SpO2: 98% I/O last 3 completed shifts: In: 250 (2.5 mL/kg) [IV Piggyback:250] Out: - (0 mL/kg) Weight: 99.8 kg CONSTITUTIONAL: awake, alert, cooperative, ill appearing, in acute pain NECK: Supple, symmetrical, trachea midline, no adenopathy LUNGS: No increased work of breathing, good air exchange CARDIOVASCULAR: Regular rate and rhythm ABDOMEN: Laterally the abdominal pain is soft, but is more firm around the central region. There is not significant distension. Obese abdomen. There is point tenderness and a mound like defect near the midline in the epigastric region. There is conscious guarding without lanie peritonitis. No significant rebound. Healed surgical incisions without overlying skin erythema or abnormalities. CHEST: no masses palpated, no axillary or supraclavicular adenopathy GENITAL/URINARY: Not examined MUSCULOSKELETAL: There is no redness, warmth, or swelling of the joints. Full range of motion noted. NEUROLOGIC: Awake, alert, oriented to name, place and time. SKIN: normal skin color, texture, no redness, warmth, or swelling DATA: CBC: Lab Results Component Value Date WBC 8.0 05/10/2025 RBC 3.54 (L) 05/10/2025 HGB 10.9 (L) 05/10/2025 HCT 33.1 (L) 05/10/2025 MCV 93.5 05/10/2025 MCH 30.8 05/10/2025 MCHC 32.9 05/10/2025 RDW 12.3 05/10/2025 PLT 228 05/10/2025 MPV 9.1 05/10/2025 BMP: Lab Results Component Value Date NA 137 05/10/2025 K 3.7 05/10/2025 CL 109 (H) 05/10/2025 CO2 19 (L) 05/10/2025 BUN 8 05/10/2025 CREATININE 0.58 05/10/2025 CALCIUM 8.2 (L) 05/10/2025 GLUCOSE 108 (H) 05/10/2025 Hepatic Function Panel: Lab Results Component Value Date ALKPHOS 41 05/09/2025 ALT 11 05/09/2025 AST 14 05/09/2025 PROT 7.3 05/09/2025 BILITOT 0.2 05/09/2025 PT/INR: No results found for: PROTIME, INR Troponin: No results found for: TROPONINI LIPASE: No results found for: LIPASE IMAGING: FL SMALL BOWEL SERIES Narrative: [facility] 1985 [id number] Exam Date/Time: 05/10/2025 08:12 Procedure: FL SMALL BOWEL SERIES Ordering Provider: YEN THOMAS Reason For Exam: r/o SBO/intusseception GASTROGRAFIN SMALL BOWEL SERIES History: Small bowel obstruction, intussusception. Comparison: CT abdomen/pelvis 05/09/2025. Technique: Gastrografin was instilled orally, sequential films of the abdomen were obtained. Fluoroscopy time: Fluoroscopy was not utilized during the study. Images: 10 Findings: The preliminary film demonstrates a nonspecific bowel gas pattern.The stomach and duodenal bulb are not adequately seen for proper evaluation. Evaluation of bowel mucosa is limited due to the use of Gastrografin. There is prompt flow of contrast in the jejunum and ileal loops. Mildly dilated loops of proximal small bowel are noted. Contrast reached the colon in 2.5 hours. Impression: Mildly dilated loops of proximal bowel, significance uncertain. Transit time to colon 2.5 hours. Recommend follow-up.. Report Dictated on Electronically Signed By: Regis Chakraborty MD Electronically Signed Date/Time: 05/10/2025 2:02 PM EDT Labs Lab Results Component Value Date NA 137 05/10/2025 K 3.7 05/10/2025 CL 109 (H) 05/10/2025 CO2 19 (L) 05/10/2025 BUN 8 05/10/2025 CREATININE 0.58 05/10/2025 GLUCOSE 108 (H) 05/10/2025 CALCIUM 8.2 (L) 05/10/2025 PROT 7.3 05/09/2025 BILITOT 0.2 05/09/2025 ALKPHOS 41 05/09/2025 AST 14 05/09/2025 ALT 11 05/09/2025 Lab Results Component Value Date WBC 8.0 05/10/2025 HGB 10.9 (L) 05/10/2025 HCT 33.1 (L) 05/10/2025 MCV 93.5 05/10/2025 PLT 228 05/10/[address] abdomen pelvis w contrast Result Date: 05/09/2025 Patient Name: MEL WALL : 1985 Exam Date/Time: 05/09/2025 18:43 Procedure: CT ABDOMEN PELVIS W CONTRAST Ordering Provider: PARSONS KAITLYN Reason For Exam: concern for pop inthe abdomen per pt where she had a hernia and mesh repair CT ABDOMEN AND PELVIS Indication: Hernia repair performed July 2024. Patient felt a pop in abdomen and now has severe pain with vomiting. Appendectomy. Cholecystectomy. Multiple hernia repairs. Tubal ligation. Scan Parameters: Multiple axial CT images were obtained of the abdomen and pelvis. Coronal and sagittal reconstructions were reviewed as well. ALARA protocol. Dose reduction was employed with automated exposure control. Contrast: 75 mL of Isovue-370 IV contrast; no GI contrast Comparison: CT abdomen and pelvis 04/29/2025 FINDINGS: The lung bases are clear. The heart is not enlarged. There are no atherosclerotic calcifications along the aorta or branches. There is a stable 1.3 cm sclerotic focus in T9, unchanged from 09/13/2023. The gallbladder is absent. Mild intrahepatic and extrahepatic biliary duct distention likely sequela from cholecystectomy. The liver, pancreas, spleen, and adrenal glands are within normal limits. There is mild nodularity of the adrenal glands, unchanged. There is no hydronephrosis. Punctate right renal calculi are present. Bilateral renal cysts appear similar to prior exam, no follow-up required. The bladder contour is normal, no bladder wall thickening. The uterus is anteverted and approximates the ventral abdominal wall. Bilateral tubal ligation clips noted. Limited evaluation of the ovaries with follicular cystic changes. The appendix is not visualized, no CT evidence for appendicitis. There is a small sliding-type hiatal hernia. There is a postsurgical small bowel anastomosis at the midline (previous location left abdomen on 04/29/2025), with eccentric circumferential wall thickening which could represent partial intussusception versus mass and/or inflammation. There is no free air and no free fluid. Ventral hernia repair changes. There is diastases of the abdominal rectus muscle at the midline with a small fatty ventral hernias. There is no adenopathy. 1. There is a postsurgical small bowel anastomosis at the midline (previous location left abdomen on 04/29/2025), with eccentric circumferential wall thickening which could represent partial intussusception versus mass and/or inflammation. If pain persists, consider follow-up imaging with GI contrast and/or GI consultation. 2. Ventral hernia repair changes with multiple ventral fatty hernias. 3. Nonobstructive right renal calculus. No hydronephrosis. 4. Additional findings, as above. Report Dictated on Electronically Signed By: Michelle Velazquez MD Electronically Signed Date/Time: 05/09/2025 7:16 PM EDT Assessment and Plan: ASSESSMENT AND PLAN: This is a 39 y.o. female with complex surgical history most recently involving open recurrent IHR (08/07/24) w/ mesh, WAI, TAR, panniculectomy, removal or infarcted cecal epiploic appendage presenting with acute on sub-acute abdominal pain with c/f intussusception No emergent surgical intervention - recommend urgent NGT and decompression Patient educated on risks and benefits including but not limited To aspiration, need for urgent surgery, . She expressed Understanding of these risks and wishes to avoid placement For now unless she have further N/V episodes - elevated lactate Given addition 1L LR bolus, trending repeat - serial abdominal exams - plan for SBFT Remain NPO except for contrast - rest per primary - surgery to follow Patient discussed with attending, Dr. Miranda Taylor, General Surgery Resident 05/10/25 2:21 PM This note may have been dictated using [employer] Medical Practice Edition 2.6 and/or Quixby Voice Recognition Feature. The document was proofread; however, unrecognized voice recognition wood stock blank handler errors may be present. ATTESTATION The patient was seen and examined. I have reviewed the patients presentation, histories, imaging and serology studies. I agree with the above assessment and plan. Ab: Soft, diffusely tender, no rebound or guarding, nonperitoneal. Palpable midline hernias. Patient seen and examined today. Patient reports diffuse abdominal pain. She states that the pain feels as though her abdominal wall is ripping apart. She admits to some nausea. She denies fevers, chills, shortness of breath or chest pain. Patient does state that she is on chronic opioid therapy for chronic pain. This is managed by her PCP. CT scan from this morning was personally reviewed and interpreted. Findings appear to be consistent with previously known postoperative changes. She does have a recurrent ventral hernia with multiple defects. There is some nonspecific possible enteric thickening noted on CT scan. The CT scan was performed without contrast. Based on the study, we did proceed with a small bowel follow-through which revealed transit time to the colon within 2-1/2 hours. I recommend advancing patient's diet to full liquids. Continue serial abdominal exams and observation. Given the patient's chronic abdominal history and chronic opioid use, I do recommend outpatient referral with pain management as I feel the patient may benefit from multimodal therapy for her chronic abdominal pain. Continue medical management per primary team. Will continue to follow. --------- I personally performed the evaluation and management of Mel Wall in the development of a treatment plan for this patient. I personally interviewed the patient and performed an individual physical examination. In addition, I discussed the patient's condition and treatment options with them. I have also reviewed and agree with the past medical, family and social history unless otherwise noted. All of the patient's questions were answered. I personally spent 75 minutes of time between the face to face encounter, physical exam, reviewing the medical history, coordinating the patient's care, counseling/educating the patient, ordering prescriptions/medications/tests/proc edures, interpreting results and documenting clinical information in the patient's electronic health record on the day of the encounter. 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 Partial obstruction of small intestine (HCC) 06/13/2024 [2] Past Surgical History: Procedure Laterality Date APPENDECTOMY BILIOPANCREATIC DIVERSION 10/23/2008 Sherie @ [facility]; janel-en-y duodenojejunostomy for bile reflux CHOLECYSTECTOMY 02/2007 lap COLONOSCOPY N/A 11/29/2023 Miranda; repeat in 11/2033 EXPLORATORY LAPAROTOMY 06/10/2019 Veronica @ [facility]; ex lap, WAI INCISION AND DRAINAGE OF WOUND 08/09/2013 [facility]; I&D of surgical incision of LLQ INCISIONAL HERNIA REPAIR 10/20/2017 [facility]; open primary repair INCISIONAL HERNIA REPAIR 07/12/2018 [facility]; open w/ mesh INCISIONAL HERNIA REPAIR 09/26/2018 [facility]; lap w/ mesh INCISIONAL HERNIA REPAIR 03/11/2020 ; repair w/ mesh excision, mesh replacement ([facility] Mesh w/ Echo), WAI INCISIONAL HERNIA REPAIR 07/19/2015 [facility]; open repair w/ mesh INCISIONAL HERNIA REPAIR 08/07/2024 [facility]; an open recurrent repair w/ mesh, WAI, TAR, removal of infarcted cecal epiploic appendage PANNICULECTOMY (HISTORICAL) 08/07/2024 [facility] SOFT TISSUE MASS EXCISION 08/02/2013 [place]; STM excision of LLQ TONSILLECTOMY [3] Current Facility-Administered Medications Medication Dose Route Frequency Provider Last Rate Last Admin acetaminophen (Ofirmev) IVPB 1,000 mg 1,000 mg IntraVENous 4 times per day Zana Ayala DO enoxaparin (Lovenox) syringe 40 mg 40 mg SubCUTAneous Daily Sami Rodriguez MD 40 mg at 05/10/25 1018 FLUoxetine (PROzac) capsule 20 mg 20 mg Oral Daily Sami Rodriguez MD 20 mg at 05/10/25 1018 HYDROmorphone (Dilaudid) injection 0.5 mg 0.5 mg IntraVENous q4h PRN Zana Ayala DO Or HYDROmorphone (Dilaudid) injection 1 mg 1 mg IntraVENous q4h PRN Zana Ayala, DO 1 mg at 05/10/25 1408 lactated Ringer's infusion 100 mL/hr IntraVENous Continuous Zana Ayala DO 100 mL/hr at 05/10/25 1034 100 mL/hr at 05/10/25 1034 naloxone (Narcan) 0.4 mg in 0.9% sodium chloride 10 mL syringe IntraVENous PRN Ross G SALVATORE Erickson oxyCODONE (Roxicodone) immediate release tablet 5 mg 5 mg Oral q4h PRN Zana Ayala DO polyethylene glycol (PEG) 3350 (Miralax) packet 17 g 17 g Oral Daily PRN Sami Rodriguez MD promethazine (Phenergan) injection 25 mg 25 mg IntraMUSCular q6h PRN Zana Ayala, DO 25 mg at 05/10/25 1408 [4] Social History Socioeconomic History Marital status: Tobacco Use Smoking status: Former Types: Cigarettes Smokeless tobacco: Never Substance and Sexual Activity Alcohol use: Not Currently Drug use: Yes Frequency: 2.0 times per week Types: Marijuana Comment: edibles Sexual activity: Not Currently Social Drivers of Health Financial Resource Strain: High Risk (04/24/2024) Overall Financial Resource Strain (CARDIA) Difficulty of Paying Living Expenses: Very hard Food Insecurity: Patient Declined (04/26/2024) Hunger Vital Sign Worried About Running Out of Food in the Last Year: Patient declined Ran Out of Food in the Last Year: Patient declined Recent Concern: Food Insecurity - Food Insecurity Present (04/24/2024) Hunger Vital Sign Worried About Running Out of Food in the Last Year: Often true Ran Out of Food in the Last Year: Often true Transportation Needs: Patient Declined (04/26/2024) PRAPARE - Transportation Lack of Transportation (Medical): Patient declined Lack of Transportation (Non-Medical): Patient declined Recent Concern: Transportation Needs - Unmet Transportation Needs (04/24/2024) PRAPARE - Transportation Lack of Transportation (Medical): Yes Lack of Transportation (Non-Medical): Yes Physical Activity: Sufficiently Active (04/24/2024) Exercise Vital Sign Days of Exercise per Week: 7 days Minutes of Exercise per Session: 60 min Stress: Stress Concern Present (04/24/2024) [employer] [place] [employer] - Occupational Stress Questionnaire Feeling of Stress : Very much Social Connections: Moderately Integrated (04/24/2024) Social Connection and Isolation Panel [NHANES] Frequency of Communication with Friends and Family: Twice a week Frequency of Social Gatherings with Friends and Family: Once a week Attends [employer] Services: More than 4 times per year Active Member of Clubs or Organizations: No Attends Club or Organization Meetings: More than 4 times per year Marital Status: Intimate Partner Violence: Not At Risk (05/10/2025) Humiliation, Afraid, Rape, and Kick questionnaire Fear of Current or Ex-Partner: No Emotionally Abused: No Physically Abused: No Sexually Abused: No Housing Stability: Unknown (04/26/2024) Housing Stability Vital Sign Unable to Pay for Housing in the Last Year: Patient declined Number of Times Moved in the Last Year: 1 Homeless in the Last Year: No Recent Concern: Housing Stability - High Risk (04/24/2024) Housing Stability Vital Sign Unable to Pay for Housing in the Last Year: Yes Number of Times Moved in the Last Year: 1 Homeless in the Last Year: No [5] Family History Problem Relation Name Age of Onset Hypertension Father Diabetes Father BUL[employer] Work Phone: 05-10-2025 Consult note Associated Order (s): IP CONSULT TO GENERAL SURGERY Department of General Surgery Surgical Service - 4 (ALS) Resident Consult Note 05/10/2025 Subjective Subjective: CHIEF COMPLAINT: Chief Complaint Patient presents with Abdominal Pain Pt states she was at work today when she stood up and felt a pop in her RLQ. PT reports pain and nausea. Pt states she had a hernia repair in Jul. Reason for Consult: known surgical patient, concern for CT findings and abd pain with rising lactate HISTORY OF PRESENT ILLNESS: Mel Wall is a 39 y.o. female with significant past medical history of anxiety, depression, bipolar, obesity s/p biliopancreatic diversion (retrocollic janel limb with a duodenojejunostomy in the right upper quadrant seen on previous operative exploration without hinojosa's defect), and incision hernia repair s/p TAR 08/07/24 who presents with popping sensation in RLQ and associated N/V. Surgery was consulted for evaluation of above. Per chart review patient was last seen in office 09/28/2024 and last seen in hospital consultation 02/21/25. At office visit after open recurrent IHR (08/07/24) w/ mesh, WAI, TAR, panniculectomy, removal or infarcted cecal epiploic appendage. At this time she has increased pain and abdominal swelling with c/f seroma on imaging but without clinical signs. Patient states her pain began yesterday morning (05/09/25) around 0900 in the morning. It started as deep, epigastric/mid-abdomen burning, cramping like pain. It was fairly steady but not severe and patient went to work as normal. Around 1400 upon ambulation at work patient felt a strong popping like sensation around her lower/RLQ abdomen and had a sudden increase in her pain. She has not tried to have any solids since her pain but has kept liquids down over the past several hours. She has had some associated nausea and vomiting, with her most recent emesis around 2100 (05/09/25). She has additionally felt the need to defecate but has only passed some liquid that looked like stool tinged water. She also endorses some chill sensations. The pain and symptoms are the same as when she presented to the ED ten days prior (04/29/25), but more severe in nature. At that time she had the same type of pain as well as heavy menorrhagia without unusual discharge and without significant N/V at that time. She denies CP, SOB, dyspnea, fevers, urinary changes, or bloody bowel movements. On evaluation patient was: Ill appearing AF Vitals wnl and hds On RA Labs reviewed significant for: CMP minor electrolyte abnormalities Hypokalemia 3.3 HCO3- 20 LFT wnl Lactic Acid uptrending, 3.5 (3) CBC wnl UA wnl Imaging demonstrated: 05/09/25 CTAP w/ IV: Postsurgical changes Previous JJ site was left abdomen and is Now closer to midline Eccentric circumferential wall thickening at Anastomosis This was also seen to a degree on previous CT Intussusception vs mass and/or Inflammation 04/29/25 CTAP w/ IV: Postsurgical changes JJ anastomosis on left side of abdomen Circumferential thickening of small bowel at Anastomosis Medical History[1] Surgical History[2] Medications Prior to Admission: Medications Ordered Prior to Encounter[3] Allergies: Ketorolac, Ondansetron, and Seasonal Social History[4] Family History[5] REVIEW OF SYSTEMS: Review of Systems 11-point ROS completed, negative except as HPI Objective Objective: PHYSICAL EXAM: Vitals: 05/10/25 1153 BP: 136/84 Pulse: 75 Resp: 17 Temp: 36.5 C (97.7 F) SpO2: 98% I/O last 3 completed shifts: In: 250 (2.5 mL/kg) [IV Piggyback:250] Out: - (0 mL/kg) Weight: 99.8 kg CONSTITUTIONAL: awake, alert, cooperative, ill appearing, in acute pain NECK: Supple, symmetrical, trachea midline, no adenopathy LUNGS: No increased work of breathing, good air exchange CARDIOVASCULAR: Regular rate and rhythm ABDOMEN: Laterally the abdominal pain is soft, but is more firm around the central region. There is not significant distension. Obese abdomen. There is point tenderness and a mound like defect near the midline in the epigastric region. There is conscious guarding without lanie peritonitis. No significant rebound. Healed surgical incisions without overlying skin erythema or abnormalities. CHEST: no masses palpated, no axillary or supraclavicular adenopathy GENITAL/URINARY: Not examined MUSCULOSKELETAL: There is no redness, warmth, or swelling of the joints. Full range of motion noted. NEUROLOGIC: Awake, alert, oriented to name, place and time. SKIN: normal skin color, texture, no redness, warmth, or swelling DATA: CBC: Lab Results Component Value Date WBC 8.0 05/10/2025 RBC 3.54 (L) 05/10/2025 HGB 10.9 (L) 05/10/2025 HCT 33.1 (L) 05/10/2025 MCV 93.5 05/10/2025 MCH 30.8 05/10/2025 MCHC 32.9 05/10/2025 RDW 12.3 05/10/2025 PLT 228 05/10/2025 MPV 9.1 05/10/2025 BMP: Lab Results Component Value Date NA 137 05/10/2025 K 3.7 05/10/2025 CL 109 (H) 05/10/2025 CO2 19 (L) 05/10/2025 BUN 8 05/10/2025 CREATININE 0.58 05/10/2025 CALCIUM 8.2 (L) 05/10/2025 GLUCOSE 108 (H) 05/10/2025 Hepatic Function Panel: Lab Results Component Value Date ALKPHOS 41 05/09/2025 ALT 11 05/09/2025 AST 14 05/09/2025 PROT 7.3 05/09/2025 BILITOT 0.2 05/09/2025 PT/INR: No results found for: PROTIME, INR Troponin: No results found for: TROPONINI LIPASE: No results found for: LIPASE IMAGING: FL SMALL BOWEL SERIES Narrative: Patient Name: MEL WALL : 1985 Exam Date/Time: 05/10/2025 08:12 Procedure: FL SMALL BOWEL SERIES Ordering Provider: YEN THOMAS Reason For Exam: r/o SBO/intusseception GASTROGRAFIN SMALL BOWEL SERIES History: Small bowel obstruction, intussusception. Comparison: CT abdomen/pelvis 05/09/2025. Technique: Gastrografin was instilled orally, sequential films of the abdomen were obtained. Fluoroscopy time: Fluoroscopy was not utilized during the study. Images: 10 Findings: The preliminary film demonstrates a nonspecific bowel gas pattern.The stomach and duodenal bulb are not adequately seen for proper evaluation. Evaluation of bowel mucosa is limited due to the use of Gastrografin. There is prompt flow of contrast in the jejunum and ileal loops. Mildly dilated loops of proximal small bowel are noted. Contrast reached the colon in 2.5 hours. Impression: Mildly dilated loops of proximal bowel, significance uncertain. Transit time to colon 2.5 hours. Recommend follow-up.. Report Dictated on Electronically Signed By: Regis Chakraborty MD Electronically Signed Date/Time: 05/10/2025 2:02 PM EDT Labs Lab Results Component Value Date NA 137 05/10/2025 K 3.7 05/10/2025 CL 109 (H) 05/10/2025 CO2 19 (L) 05/10/2025 BUN 8 05/10/2025 CREATININE 0.58 05/10/2025 GLUCOSE 108 (H) 05/10/2025 CALCIUM 8.2 (L) 05/10/2025 PROT 7.3 05/09/2025 BILITOT 0.2 05/09/2025 ALKPHOS 41 05/09/2025 AST 14 05/09/2025 ALT 11 05/09/2025 Lab Results Component Value Date WBC 8.0 05/10/2025 HGB 10.9 (L) 05/10/2025 HCT 33.1 (L) 05/10/2025 MCV 93.5 05/10/2025 PLT 228 05/10/[address] abdomen pelvis w contrast Result Date: 05/09/2025 Patient Name: MEL WALL : 1985 Exam Date/Time: 05/09/2025 18:43 Procedure: CT ABDOMEN PELVIS W CONTRAST Ordering Provider: PARSONS KAITLYN Reason For Exam: concern for pop inthe abdomen per pt where she had a hernia and mesh repair CT ABDOMEN AND PELVIS Indication: Hernia repair performed July 2024. Patient felt a pop in abdomen and now has severe pain with vomiting. Appendectomy. Cholecystectomy. Multiple hernia repairs. Tubal ligation. Scan Parameters: Multiple axial CT images were obtained of the abdomen and pelvis. Coronal and sagittal reconstructions were reviewed as well. ALARA protocol. Dose reduction was employed with automated exposure control. Contrast: 75 mL of Isovue-370 IV contrast; no GI contrast Comparison: CT abdomen and pelvis 04/29/2025 FINDINGS: The lung bases are clear. The heart is not enlarged. There are no atherosclerotic calcifications along the aorta or branches. There is a stable 1.3 cm sclerotic focus in T9, unchanged from 09/13/2023. The gallbladder is absent. Mild intrahepatic and extrahepatic biliary duct distention likely sequela from cholecystectomy. The liver, pancreas, spleen, and adrenal glands are within normal limits. There is mild nodularity of the adrenal glands, unchanged. There is no hydronephrosis. Punctate right renal calculi are present. Bilateral renal cysts appear similar to prior exam, no follow-up required. The bladder contour is normal, no bladder wall thickening. The uterus is anteverted and approximates the ventral abdominal wall. Bilateral tubal ligation clips noted. Limited evaluation of the ovaries with follicular cystic changes. The appendix is not visualized, no CT evidence for appendicitis. There is a small sliding-type hiatal hernia. There is a postsurgical small bowel anastomosis at the midline (previous location left abdomen on 04/29/2025), with eccentric circumferential wall thickening which could represent partial intussusception versus mass and/or inflammation. There is no free air and no free fluid. Ventral hernia repair changes. There is diastases of the abdominal rectus muscle at the midline with a small fatty ventral hernias. There is no adenopathy. 1. There is a postsurgical small bowel anastomosis at the midline (previous location left abdomen on 04/29/2025), with eccentric circumferential wall thickening which could represent partial intussusception versus mass and/or inflammation. If pain persists, consider follow-up imaging with GI contrast and/or GI consultation. 2. Ventral hernia repair changes with multiple ventral fatty hernias. 3. Nonobstructive right renal calculus. No hydronephrosis. 4. Additional findings, as above. Report Dictated on Electronically Signed By: Michelle Velazquez MD Electronically Signed Date/Time: 05/09/2025 7:16 PM EDT Assessment and Plan: ASSESSMENT AND PLAN: This is a 39 y.o. female with complex surgical history most recently involving open recurrent IHR (08/07/24) w/ mesh, WAI, TAR, panniculectomy, removal or infarcted cecal epiploic appendage presenting with acute on sub-acute abdominal pain with c/f intussusception No emergent surgical intervention - recommend urgent NGT and decompression Patient educated on risks and benefits including but not limited To aspiration, need for urgent surgery, . She expressed Understanding of these risks and wishes to avoid placement For now unless she have further N/V episodes - elevated lactate Given addition 1L LR bolus, trending repeat - serial abdominal exams - plan for SBFT Remain NPO except for contrast - rest per primary - surgery to follow Patient discussed with attending, Dr. Miranda Taylor DO General Surgery Resident 05/10/25 2:21 PM This note may have been dictated using [employer] Medical Practice Edition 2.6 and/or Quixby Voice Recognition Feature. The document was proofread; however, unrecognized voice recognition wood stock blank handler errors may be present. ATTESTATION The patient was seen and examined. I have reviewed the patients presentation, histories, imaging and serology studies. I agree with the above assessment and plan. Ab: Soft, diffusely tender, no rebound or guarding, nonperitoneal. Palpable midline hernias. Patient seen and examined today. Patient reports diffuse abdominal pain. She states that the pain feels as though her abdominal wall is ripping apart. She admits to some nausea. She denies fevers, chills, shortness of breath or chest pain. Patient does state that she is on chronic opioid therapy for chronic pain. This is managed by her PCP. CT scan from this morning was personally reviewed and interpreted. Findings appear to be consistent with previously known postoperative changes. She does have a recurrent ventral hernia with multiple defects. There is some nonspecific possible enteric thickening noted on CT scan. The CT scan was performed without contrast. Based on the study, we did proceed with a small bowel follow-through which revealed transit time to the colon within 2-1/2 hours. I recommend advancing patient's diet to full liquids. Continue serial abdominal exams and observation. Given the patient's chronic abdominal history and chronic opioid use, I do recommend outpatient referral with pain management as I feel the patient may benefit from multimodal therapy for her chronic abdominal pain. Continue medical management per primary team. Will continue to follow. --------- I personally performed the evaluation and management of Mel Wall in the development of a treatment plan for this patient. I personally interviewed the patient and performed an individual physical examination. In addition, I discussed the patient's condition and treatment options with them. I have also reviewed and agree with the past medical, family and social history unless otherwise noted. All of the patient's questions were answered. I personally spent 75 minutes of time between the face to face encounter, physical exam, reviewing the medical history, coordinating the patient's care, counseling/educating the patient, ordering prescriptions/medications/tests/proc edures, interpreting results and documenting clinical information in the patient's electronic health record on the day of the encounter. 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 Partial obstruction of small intestine (HCC) 06/13/2024 [2] Past Surgical History: Procedure Laterality Date APPENDECTOMY BILIOPANCREATIC DIVERSION 10/23/2008 Sherie @ [facility]; janel-en-y duodenojejunostomy for bile reflux CHOLECYSTECTOMY 02/2007 lap COLONOSCOPY N/A 11/29/2023 Miranda; repeat in 11/2033 EXPLORATORY LAPAROTOMY 06/10/2019 Veronica @ [facility]; ex lap, WAI INCISION AND DRAINAGE OF WOUND 08/09/2013 [facility]; I&D of surgical incision of LLQ INCISIONAL HERNIA REPAIR 10/20/2017 [facility]; open primary repair INCISIONAL HERNIA REPAIR 07/12/2018 [facility]; open w/ mesh INCISIONAL HERNIA REPAIR 09/26/2018 [facility]; lap w/ mesh INCISIONAL HERNIA REPAIR 03/11/2020 [facility]; repair w/ mesh excision, mesh replacement ([facility] Mesh w/ Echo), WAI INCISIONAL HERNIA REPAIR 07/19/2015 [facility]; open repair w/ mesh INCISIONAL HERNIA REPAIR 08/07/2024 [facility]; an open recurrent repair w/ mesh, WAI, TAR, removal of infarcted cecal epiploic appendage PANNICULECTOMY (HISTORICAL) 08/07/2024 [facility] SOFT TISSUE MASS EXCISION 08/02/2013 [facility]; STM excision of LLQ TONSILLECTOMY [3] Current Facility-Administered Medications Medication Dose Route Frequency Provider Last Rate Last Admin acetaminophen (Ofirmev) IVPB 1,000 mg 1,000 mg IntraVENous 4 times per day Zana Ayala DO enoxaparin (Lovenox) syringe 40 mg 40 mg SubCUTAneous Daily Sami Rodriguez MD 40 mg at 05/10/25 1018 FLUoxetine (PROzac) capsule 20 mg 20 mg Oral Daily Sami Rodriguez MD 20 mg at 05/10/25 1018 HYDROmorphone (Dilaudid) injection 0.5 mg 0.5 mg IntraVENous q4h PRN Zana Ayala DO Or HYDROmorphone (Dilaudid) injection 1 mg 1 mg IntraVENous q4h PRN Zana Ayala DO 1 mg at 05/10/25 1408 lactated Ringer's infusion 100 mL/hr IntraVENous Continuous Zana Ayala DO 100 mL/hr at 05/10/25 1034 100 mL/hr at 05/10/25 1034 naloxone (Narcan) 0.4 mg in 0.9% sodium chloride 10 mL syringe IntraVENous PRN Roe Erickson NP oxyCODONE (Roxicodone) immediate release tablet 5 mg 5 mg Oral q4h PRN Zana Ayala DO polyethylene glycol (PEG) 3350 (Miralax) packet 17 g 17 g Oral Daily PRN Sami Rodriguez MD promethazine (Phenergan) injection 25 mg 25 mg IntraMUSCular q6h PRN Zana Ayala DO 25 mg at 05/10/25 1408 [4] Social History Socioeconomic History Marital status: Tobacco Use Smoking status: Former Types: Cigarettes Smokeless tobacco: Never Substance and Sexual Activity Alcohol use: Not Currently Drug use: Yes Frequency: 2.0 times per week Types: Marijuana Comment: edibles Sexual activity: Not Currently Social Drivers of Health Financial Resource Strain: High Risk (04/24/2024) Overall Financial Resource Strain (CARDIA) Difficulty of Paying Living Expenses: Very hard Food Insecurity: Patient Declined (04/26/2024) Hunger Vital Sign Worried About Running Out of Food in the Last Year: Patient declined Ran Out of Food in the Last Year: Patient declined Recent Concern: Food Insecurity - Food Insecurity Present (04/24/2024) Hunger Vital Sign Worried About Running Out of Food in the Last Year: Often true Ran Out of Food in the Last Year: Often true Transportation Needs: Patient Declined (04/26/2024) PRAPARE - Transportation Lack of Transportation (Medical): Patient declined Lack of Transportation (Non-Medical): Patient declined Recent Concern: Transportation Needs - Unmet Transportation Needs (04/24/2024) PRAPARE - Transportation Lack of Transportation (Medical): Yes Lack of Transportation (Non-Medical): Yes Physical Activity: Sufficiently Active (04/24/2024) Exercise Vital Sign Days of Exercise per Week: 7 days Minutes of Exercise per Session: 60 min Stress: Stress Concern Present (04/24/2024) [employer] [employer] - Occupational Stress Questionnaire Feeling of Stress : Very much Social Connections: Moderately Integrated (04/24/2024) Social Connection and Isolation Panel [NHANES] Frequency of Communication with Friends and Family: Twice a week Frequency of Social Gatherings with Friends and Family: Once a week Attends Adventism Services: More than 4 times per year Active Member of Clubs or Organizations: No Attends Club or Organization Meetings: More than 4 times per year Marital Status: Intimate Partner Violence: Not At Risk (05/10/2025) Humiliation, Afraid, Rape, and Kick questionnaire Fear of Current or Ex-Partner: No Emotionally Abused: No Physically Abused: No Sexually Abused: No Housing Stability: Unknown (04/26/2024) Housing Stability Vital Sign Unable to Pay for Housing in the Last Year: Patient declined Number of Times Moved in the Last Year: 1 Homeless in the Last Year: No Recent Concern: Housing Stability - High Risk (04/24/2024) Housing Stability Vital Sign Unable to Pay for Housing in the Last Year: Yes Number of Times Moved in the Last Year: 1 Homeless in the Last Year: No [5] Family History Problem Relation Name Age of Onset Hypertension Father Diabetes Father documented in this encounter [facility] 05-09-2025 Note Formatting of this n ote is different from the original. ADVANCED [employer] PLANNING Mel Wall : 1985 Primary Care Physician: No primary care provider on file. The patient and/or family/surrogate voluntarily agreed to participate in ACP services. Patient s cognitive capacity: Patient has full medical capacity at the time of my evaluation at time 2350. Code Status: [x] [FULL CODE - Continue all advanced life support: CPR,intubation,invasive procedures] [_] [DNR-CCA - DO NOT do CPR, intubation] [_] [DNR-GAS APPLIANCE REPAIRER - Comfort care only] [_] DNR form [was/was not] signed Summary of discussion: The patient health care POA/ surrogate is the following: none in chart. Patient with a history of multiple prior abdominal surgeries admitted for abdominal pain. Advanced care planning discussion was had in this setting, and patient wishes to be Full Code at this time. I answered all the patient/family questions that I could within the range and scope of the current medical situation. We discussed the medical conditions, risks, benefits, outcomes, and goals of care at this time for the patient's medical issues at hand in the face of the patient's chronic issues and current presentation. Total time spent: 16 minutes were spent discussing the patient's resuscitation status, advance care planning, and end of life care, with patient and/or family/surrogate. Sami Rodriguez MD [facility] 05/10/2025, 1:54 AM [facility] 05-09-2025 Note Formatting of this n ote is different from the original. ADVANCED CARE PLANNING Mel Wall : 1985 Primary Care Physician: No primary care provider on file. The patient and/or family/surrogate voluntarily agreed to participate in ACP services. Patient s cognitive capacity: Patient has full medical capacity at the time of my evaluation at time 2350. Code Status: [x] [FULL CODE - Continue all advanced life support: CPR,intubation,invasive procedures] [_] [DNR-CCA - DO NOT do CPR, intubation] [_] [DNR-GAS APPLIANCE REPAIRER - Comfort care only] [_] DNR form [was/was not] signed Summary of discussion: The patient health care POA/ surrogate is the following: none in chart. Patient with a history of multiple prior abdominal surgeries admitted for abdominal pain. Advanced care planning discussion was had in this setting, and patient wishes to be Full Code at this time. I answered all the patient/family questions that I could within the range and scope of the current medical situation. We discussed the medical conditions, risks, benefits, outcomes, and goals of care at this time for the patient's medical issues at hand in the face of the patient's chronic issues and current presentation. Total time spent: 16 minutes were spent discussing the patient's resuscitation status, advance care planning, and end of life care, with patient and/or family/surrogate. Sami Rodriguez MD [facility] 05/10/2025, 1:54 AM T [facility] 05-09-2025 History and physical note Attending History and Physical Admit Date: 05/09/2025 PCP: No primary care provider on file. CHIEF COMPLAINT: Abdominal pain Reason for Admission: Intractable nausea/vomiting History Obtained From: patient HISTORY OF PRESENT ILLNESS: Mel is a 39 y.o. female with a history of multiple prior abdominal surgeries who presents with abdominal pain, nausea and vomiting. She says she was at work today and felt a pop in her upper abdomen and she now feels she has a persistent bulging and pain in her abdomen with associated nausea and vomiting. She had a hernia repair in 07/2024 which was complicated by postoperative seromas and she has had persistent abdominal pain since then. She was admitted in 02/2025 for similar concerns. General surgery was consulted at that time and opted for no intervention. She required aggressive pain control and Palliative Care became involved to assist with pain management. On presentation to the [facility], she was hemodynamically stable and on room air. ECG sinus rhythm. Lactate 3->3.5 with no CBC abnormalities or significant CMP abnormalities. K 3.3. CT abd/pelv with findings as below. She says she is not passing gas. Last bowel movement was earlier today however only minimal watery output, not solid. CT abd/pelv: IMPRESSION: 1. There is a postsurgical small bowel anastomosis at the midline (previous location left abdomen on 04/29/2025), with eccentric circumferential wall thickening which could represent partial intussusception versus mass and/or inflammation. If pain persists, consider follow-up imaging with GI contrast and/or GI consultation. 2. Ventral hernia repair changes with multiple ventral fatty hernias. 3. Nonobstructive right renal calculus. No hydronephrosis. 4. Additional findings, as above. Past Medical History: Medical History[1] Past Surgical History: Surgical History[2] Social History: Social History Socioeconomic History Marital status: Spouse name: Not on file Number of children: Not on file Years of education: Not on file Highest education level: Not on file Occupational History Not on file Tobacco Use Smoking status: Former Types: Cigarettes Smokeless tobacco: Never Substance and Sexual Activity Alcohol use: Not Currently Drug use: Yes Frequency: 2.0 times per week Types: Marijuana Comment: edibles Sexual activity: Not Currently Other Topics Concern Not on file Social History Narrative Not on file Social Drivers of Health Financial Resource Strain: High Risk (04/24/2024) Overall Financial Resource Strain (CARDIA) Difficulty of Paying Living Expenses: Very hard Food Insecurity: Patient Declined (04/26/2024) Hunger Vital Sign Worried About Running Out of Food in the Last Year: Patient declined Ran Out of Food in the Last Year: Patient declined Recent Concern: Food Insecurity - Food Insecurity Present (04/24/2024) Hunger Vital Sign Worried About Running Out of Food in the Last Year: Often true Ran Out of Food in the Last Year: Often true Transportation Needs: Patient Declined (04/26/2024) PRAPARE - Transportation Lack of Transportation (Medical): Patient declined Lack of Transportation (Non-Medical): Patient declined Recent Concern: Transportation Needs - Unmet Transportation Needs (04/24/2024) PRAPARE - Transportation Lack of Transportation (Medical): Yes Lack of Transportation (Non-Medical): Yes Physical Activity: Sufficiently Active (04/24/2024) Exercise Vital Sign Days of Exercise per Week: 7 days Minutes of Exercise per Session: 60 min Stress: Stress Concern Present (04/24/2024) [employer] [employer] - Occupational Stress Questionnaire Feeling of Stress : Very much Social Connections: Moderately Integrated (04/24/2024) Social Connection and Isolation Panel [NHANES] Frequency of Communication with Friends and Family: Twice a week Frequency of Social Gatherings with Friends and Family: Once a week Attends Adventism Services: More than 4 times per year Active Member of Clubs or Organizations: No Attends Club or Organization Meetings: More than 4 times per year Marital Status: Intimate Partner Violence: Not At Risk (05/10/2025) Humiliation, Afraid, Rape, and Kick questionnaire Fear of Current or Ex-Partner: No Emotionally Abused: No Physically Abused: No Sexually Abused: No Housing Stability: Unknown (04/26/2024) Housing Stability Vital Sign Unable to Pay for Housing in the Last Year: Patient declined Number of Times Moved in the Last Year: 1 Homeless in the Last Year: No Recent Concern: Housing Stability - High Risk (04/24/2024) Housing Stability Vital Sign Unable to Pay for Housing in the Last Year: Yes Number of Times Moved in the Last Year: 1 Homeless in the Last Year: No Family History: Family History[3] Medications Prior to Admission: Current Medications[4] Medications Reconciliation: Medication were reviewed and verified as accurate with patient. Allergies: Allergies[5] REVIEW OF SYSTEMS: 10 point ROS obtained, as per HPI, otherwise NEG Vitals: BP 144/76 (BP Location: Left arm, Patient Position: Sitting) Pulse 111 Temp 36.4 C (97.6 F) (Temporal) Resp 20 Ht 5' 5 (1.651 m) Wt 220 lb (99.8 kg) SpO2 98% BMI 36.61 kg/m BMI Classification: Obese (BMI 30.0-39.9) Pulse Ox: SpO2 Av.7 % Min: 98 % Max: 99 % Supplemental O2: PHYSICAL EXAM: General: no distress, alert Cardiovascular: RRR, no murmurs Pulmonary: lungs clear to auscultation bilaterally Abdomen: firm, consistent with scar from prior abdominal surgeries. No rebound or guarding. Bowel sounds present. Extremities: no lower extremity edema DATA: CBC: Recent Labs 05/09/25 1808 WBC 8.9 RBC 4.13 HGB 13.0 HCT 38.4 MCV 93.0 RDW 12.3 PLT 222 BMP: Recent Labs 05/09/25 1808 NA 140 K 3.3* CL 107 CO2 20* BUN 10 CREATININE 0.65 GLUCOSE 106* CALCIUM 9.1 ANIONGAP 13 LIVER PROFILE: Recent Labs 05/09/25 1808 AST 14 ALT 11 BILITOT 0.2 ALKPHOS 41 PROT 7.3 PT/INR: No results for input(s): PROTIME, INR in the last 72 hours. CARDIAC ENZYMES: No results for input(s): TROPONINI in the last 72 hours. Procalcitonin: No results found for: PROCAL Urine Culture: No results found for this or any previous visit. COVID-19 PCR: No results for input(s): COVID19 in the last 72 hours. I reviewed: [x] laboratory results [x] radiographic results At the time of today's encounter. Pt was advised of the results. Data: (CAT1) Reviewed 3 or more notes from different specialty or health system (each=1). (CAT1) Reviewed 3 or more labs/studies ordered by another provider not previously counted (each=1, panels count as 1). (CAT1) Reviewed 3 or more labs/studies previously ordered by me not previously counted (each=1, panels count as 1). (CAT1) Ordered 3 or more new labs and/or studies (each=1, panels count as 1). (CAT2) EKG reviewed & showed sinus rhythm as interpreted by me. (CAT2) CT of abdomen reviewed & showed post-operative changes as interpreted by me. (CAT3) Discussed with ED provider, Shannon Parsons PA-C, regarding patient's eval & mgmt thus far, and agree with the plan for hospitalization. (LOW: 2x CAT1 or independent historian MOD: 3x CAT1 or 1x CAT3 EXTENSIVE: 3x CAT1 and 1x CAT3) Assessment Discussed management with the ED provider and agree with hospitalization. Acute, acute on chronic, unstable/uncontrolled chronic problems/diagnoses: Abdominal pain History of multiple prior abdominal surgeries Nausea/vomiting Elevated lactate Discussed patient's CT findings and clinical presentation with general surgery team overnight - they have recommend NGT placement. I discussed the medical necessity of this in-detail with the patient, however she adamantly declined this until her vomiting worsens. I explained the significant risks of foregoing this, including the high risk of bowel ischemia/bowel if she is not decompressed immediately and that this could lead to serious, potentially fatal complications. She has medical decision-making capacity and understands these risks - she continues to decline NGT placement at this time. Informed general surgery team and nurse who are aware. We will monitor closely if she reconsiders this. General surgery consulted as above. Appreciate recommendations and assistance with care. IVF maintenance fluids Pain control in place Continuing to trend lactate Hypokalemia Repleted in ER. Will follow up repeat Stable chronic problems affecting care, new non-acute diagnoses: Depression Continue home prozac Plan As a result of the above findings & factors, the following mgmt was pursued: - medical management as above - am labs, replace lytes prn - PT/OT/CM/SW - delirium precautions: increase activity - DVT prophylaxis: enoxaparin Complexity: Acute illness with systemic symptoms (MOD). Risk: Admission to hospital-level care was considered or occurred (HIGH). Advance Directive: Full Code Anticipated Discharge - Date - 05/12/2025 - Location - Pending above - Pending the following - as above Total time spent (which include face to face and non face to face encounters) : 60 minutes. 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 Partial obstruction of small intestine (HCC) 06/13/2024 [2] Past Surgical History: Procedure Laterality Date APPENDECTOMY BILIOPANCREATIC DIVERSION 10/23/2008 Sherie @ [facility]; janel-en-y duodenojejunostomy for bile reflux CHOLECYSTECTOMY 02/2007 lap COLONOSCOPY N/A 11/29/2023 [facility]; repeat in 11/2033 EXPLORATORY LAPAROTOMY 06/10/2019 Veronica @ [facility]; ex lap, WAI INCISION AND DRAINAGE OF WOUND 08/09/2013 [facility]; I&D of surgical incision of LLQ INCISIONAL HERNIA REPAIR 10/20/2017 [facility]; open primary repair INCISIONAL HERNIA REPAIR 07/12/2018 [facility]; open w/ mesh INCISIONAL HERNIA REPAIR 09/26/2018 [facility]; lap w/ mesh INCISIONAL HERNIA REPAIR 03/11/2020 [facility]; repair w/ mesh excision, mesh replacement ([facility] Mesh w/ Echo), WAI INCISIONAL HERNIA REPAIR 07/19/2015 [facility]; open repair w/ mesh INCISIONAL HERNIA REPAIR 08/07/2024 [facility]; an open recurrent repair w/ mesh, [facility], TAR, removal of infarcted cecal epiploic appendage PANNICULECTOMY (HISTORICAL) 08/07/2024 [facility] SOFT TISSUE MASS EXCISION 08/02/2013 [facility]; STM excision of LLQ TONSILLECTOMY [3] Family History Problem Relation Name Age of Onset Hypertension Father Diabetes Father [4] Current Facility-Administered Medications: acetaminophen (Tylenol) tablet 650 mg, 650 mg, Oral, q6h PRN OR acetaminophen (Tylenol) suppository 650 mg, 650 mg, Rectal, q6h PRN, Sami Rodriguez MD enoxaparin (Lovenox) syringe 40 mg, 40 mg, SubCUTAneous, Daily, Sami Rodriguez MD FLUoxetine (PROzac) capsule 20 mg, 20 mg, Oral, Daily, Sami Rodriguez MD morphine injection 2 mg, 2 mg, IntraVENous, q4h PRN OR morphine injection 4 mg, 4 mg, IntraVENous, q4h PRN, Roe Erickson NP, 4 mg at 05/10/25 0044 naloxone (Narcan) 0.4 mg in 0.9% sodium chloride 10 mL syringe, , IntraVENous, PRN, Roe Erickson NP polyethylene glycol (PEG) 3350 (Miralax) packet 17 g, 17 g, Oral, Daily PRN, Sami Rodriguez MD promethazine (Phenergan) solution 12.5 mg, 12.5 mg, Oral, q6h PRN, Sami Rodriguez MD [5] Allergies Allergen Reactions Ketorolac Hives and Shortness of breath Other reaction(s): Hives Ondansetron Shortness of breath and Hives Other reaction(s): Hives, Respiratory distress Seasonal Itching and Other Stuffy nose BULX Work Phone: 05-09-2025 History and physical note Attending History and Physical Admit Date: 05/09/2025 PCP: No primary care provider on file. CHIEF COMPLAINT: Abdominal pain Reason for Admission: Intractable nausea/vomiting History Obtained From: patient HISTORY OF PRESENT ILLNESS: Mel is a 39 y.o. female with a history of multiple prior abdominal surgeries who presents with abdominal pain, nausea and vomiting. She says she was at work today and felt a pop in her upper abdomen and she now feels she has a persistent bulging and pain in her abdomen with associated nausea and vomiting. She had a hernia repair in 07/2024 which was complicated by postoperative seromas and she has had persistent abdominal pain since then. She was admitted in 02/2025 for similar concerns. General surgery was consulted at that time and opted for no intervention. She required aggressive pain control and Palliative Care became involved to assist with pain management. On presentation to the [facility], she was hemodynamically stable and on room air. ECG sinus rhythm. Lactate 3->3.5 with no CBC abnormalities or significant CMP abnormalities. K 3.3. CT abd/pelv with findings as below. She says she is not passing gas. Last bowel movement was earlier today however only minimal watery output, not solid. CT abd/pelv: IMPRESSION: 1. There is a postsurgical small bowel anastomosis at the midline (previous location left abdomen on 04/29/2025), with eccentric circumferential wall thickening which could represent partial intussusception versus mass and/or inflammation. If pain persists, consider follow-up imaging with GI contrast and/or GI consultation. 2. Ventral hernia repair changes with multiple ventral fatty hernias. 3. Nonobstructive right renal calculus. No hydronephrosis. 4. Additional findings, as above. Past Medical History: Medical History[1] Past Surgical History: Surgical History[2] Social History: Social History Socioeconomic History Marital status: Spouse name: Not on file Number of children: Not on file Years of education: Not on file Highest education level: Not on file Occupational History Not on file Tobacco Use Smoking status: Former Types: Cigarettes Smokeless tobacco: Never Substance and Sexual Activity Alcohol use: Not Currently Drug use: Yes Frequency: 2.0 times per week Types: Marijuana Comment: edibles Sexual activity: Not Currently Other Topics Concern Not on file Social History Narrative Not on file Social Drivers of Health Financial Resource Strain: High Risk (04/24/2024) Overall Financial Resource Strain (CARDIA) Difficulty of Paying Living Expenses: Very hard Food Insecurity: Patient Declined (04/26/2024) Hunger Vital Sign Worried About Running Out of Food in the Last Year: Patient declined Ran Out of Food in the Last Year: Patient declined Recent Concern: Food Insecurity - Food Insecurity Present (04/24/2024) Hunger Vital Sign Worried About Running Out of Food in the Last Year: Often true Ran Out of Food in the Last Year: Often true Transportation Needs: Patient Declined (04/26/2024) PRAPARE - Transportation Lack of Transportation (Medical): Patient declined Lack of Transportation (Non-Medical): Patient declined Recent Concern: Transportation Needs - Unmet Transportation Needs (04/24/2024) PRAPARE - Transportation Lack of Transportation (Medical): Yes Lack of Transportation (Non-Medical): Yes Physical Activity: Sufficiently Active (04/24/2024) Exercise Vital Sign Days of Exercise per Week: 7 days Minutes of Exercise per Session: 60 min Stress: Stress Concern Present (04/24/2024) [employer] [place] [employer] - Occupational Stress Questionnaire Feeling of Stress : Very much Social Connections: Moderately Integrated (04/24/2024) Social Connection and Isolation Panel [NHANES] Frequency of Communication with Friends and Family: Twice a week Frequency of Social Gatherings with Friends and Family: Once a week Attends [employer]ism Services: More than 4 times per year Active Member of Clubs or Organizations: No Attends Club or Organization Meetings: More than 4 times per year Marital Status: Intimate Partner Violence: Not At Risk (05/10/2025) Humiliation, Afraid, Rape, and Kick questionnaire Fear of Current or Ex-Partner: No Emotionally Abused: No Physically Abused: No Sexually Abused: No Housing Stability: Unknown (04/26/2024) Housing Stability Vital Sign Unable to Pay for Housing in the Last Year: Patient declined Number of Times Moved in the Last Year: 1 Homeless in the Last Year: No Recent Concern: Housing Stability - High Risk (04/24/2024) Housing Stability Vital Sign Unable to Pay for Housing in the Last Year: Yes Number of Times Moved in the Last Year: 1 Homeless in the Last Year: No Family History: Family History[3] Medications Prior to Admission: Current Medications[4] Medications Reconciliation: Medication were reviewed and verified as accurate with patient. Allergies: Allergies[5] REVIEW OF SYSTEMS: 10 point ROS obtained, as per HPI, otherwise NEG Vitals: BP 144/76 (BP Location: Left arm, Patient Position: Sitting) Pulse 111 Temp 36.4 C (97.6 F) (Temporal) Resp 20 Ht 5' 5 (1.651 m) Wt 220 lb (99.8 kg) SpO2 98% BMI 36.61 kg/m BMI Classification: Obese (BMI 30.0-39.9) Pulse Ox: SpO2 Av.7 % Min: 98 % Max: 99 % Supplemental O2: PHYSICAL EXAM: General: no distress, alert Cardiovascular: RRR, no murmurs Pulmonary: lungs clear to auscultation bilaterally Abdomen: firm, consistent with scar from prior abdominal surgeries. No rebound or guarding. Bowel sounds present. Extremities: no lower extremity edema DATA: CBC: Recent Labs 05/09/25 1808 WBC 8.9 RBC 4.13 HGB 13.0 HCT 38.4 MCV 93.0 RDW 12.3 PLT 222 BMP: Recent Labs 05/09/25 1808 NA 140 K 3.3* CL 107 CO2 20* BUN 10 CREATININE 0.65 GLUCOSE 106* CALCIUM 9.1 ANIONGAP 13 LIVER PROFILE: Recent Labs 05/09/25 1808 AST 14 ALT 11 BILITOT 0.2 ALKPHOS 41 PROT 7.3 PT/INR: No results for input(s): PROTIME, INR in the last 72 hours. CARDIAC ENZYMES: No results for input(s): TROPONINI in the last 72 hours. Procalcitonin: No results found for: PROCAL Urine Culture: No results found for this or any previous visit. COVID-19 PCR: No results for input(s): COVID19 in the last 72 hours. I reviewed: [x] laboratory results [x] radiographic results At the time of today's encounter. Pt was advised of the results. Data: (CAT1) Reviewed 3 or more notes from different specialty or health system (each=1). (CAT1) Reviewed 3 or more labs/studies ordered by another provider not previously counted (each=1, panels count as 1). (CAT1) Reviewed 3 or more labs/studies previously ordered by me not previously counted (each=1, panels count as 1). (CAT1) Ordered 3 or more new labs and/or studies (each=1, panels count as 1). (CAT2) EKG reviewed & showed sinus rhythm as interpreted by me. (CAT2) CT of abdomen reviewed & showed post-operative changes as interpreted by me. (CAT3) Discussed with ED provider, Shannon Parsons PA-C, regarding patient's eval & mgmt thus far, and agree with the plan for hospitalization. (LOW: 2x CAT1 or independent historian MOD: 3x CAT1 or 1x CAT3 EXTENSIVE: 3x CAT1 and 1x CAT3) Assessment Discussed management with the ED provider and agree with hospitalization. Acute, acute on chronic, unstable/uncontrolled chronic problems/diagnoses: Abdominal pain History of multiple prior abdominal surgeries Nausea/vomiting Elevated lactate Discussed patient's CT findings and clinical presentation with general surgery team overnight - they have recommend NGT placement. I discussed the medical necessity of this in-detail with the patient, however she adamantly declined this until her vomiting worsens. I explained the significant risks of foregoing this, including the high risk of bowel ischemia/bowel if she is not decompressed immediately and that this could lead to serious, potentially fatal complications. She has medical decision-making capacity and understands these risks - she continues to decline NGT placement at this time. Informed general surgery team and nurse who are aware. We will monitor closely if she reconsiders this. General surgery consulted as above. Appreciate recommendations and assistance with care. IVF maintenance fluids Pain control in place Continuing to trend lactate Hypokalemia Repleted in ER. Will follow up repeat Stable chronic problems affecting care, new non-acute diagnoses: Depression Continue home prozac Plan As a result of the above findings & factors, the following mgmt was pursued: - medical management as above - am labs, replace lytes prn - PT/OT/CM/SW - delirium precautions: increase activity - DVT prophylaxis: enoxaparin Complexity: Acute illness with systemic symptoms (MOD). Risk: Admission to hospital-level care was considered or occurred (HIGH). Advance Directive: Full Code Anticipated Discharge - Date - 05/12/2025 - Location - Pending above - Pending the following - as above Total time spent (which include face to face and non face to face encounters) : 60 minutes. 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 Partial obstruction of small intestine (HCC) 06/13/2024 [2] Past Surgical History: Procedure Laterality Date APPENDECTOMY BILIOPANCREATIC DIVERSION 10/23/2008 Sherie @ [facility]; janel-en-y duodenojejunostomy for bile reflux CHOLECYSTECTOMY 02/2007 lap COLONOSCOPY N/A 11/29/2023 [facility]; repeat in 11/2033 EXPLORATORY LAPAROTOMY 06/10/2019 Veronica @ [facility]; ex lap, [facility] INCISION AND DRAINAGE OF WOUND 08/09/2013 [facility]; I&D of surgical incision of LLQ INCISIONAL HERNIA REPAIR 10/20/2017 [facility]; open primary repair INCISIONAL HERNIA REPAIR 07/12/2018 [facility]; open w/ mesh INCISIONAL HERNIA REPAIR 09/26/2018 [facility]; lap w/ mesh INCISIONAL HERNIA REPAIR 03/11/2020 ; repair w/ mesh excision, mesh replacement ([facility]ent[facility]ight St Mesh w/ Echo), WAI INCISIONAL HERNIA REPAIR 07/19/2015 [facility]; open repair w/ mesh INCISIONAL HERNIA REPAIR 08/07/2024 [facility]; an open recurrent repair w/ mesh, W[facility], TAR, removal of infarcted cecal epiploic appendage PANNICULECTOMY (HISTORICAL) 08/07/2024 [facility] SOFT TISSUE MASS EXCISION 08/02/2013 [facility]; STM excision of LLQ TONSILLECTOMY [3] Family History Problem Relation Name Age of Onset Hypertension Father Diabetes Father [4] Current Facility-Administered Medications: acetaminophen (Tylenol) tablet 650 mg, 650 mg, Oral, q6h PRN OR acetaminophen (Tylenol) suppository 650 mg, 650 mg, Rectal, q6h PRN, Sami Rodriguez MD enoxaparin (Lovenox) syringe 40 mg, 40 mg, SubCUTAneous, Daily, Sami Rodriguez MD FLUoxetine (PROzac) capsule 20 mg, 20 mg, Oral, Daily, Sami Rodriguez MD morphine injection 2 mg, 2 mg, IntraVENous, q4h PRN OR morphine injection 4 mg, 4 mg, IntraVENous, q4h PRN, Roe Erickson NP, 4 mg at 05/10/25 0044 naloxone (Narcan) 0.4 mg in 0.9% sodium chloride 10 mL syringe, , IntraVENous, PRN, Roe Erickson NP polyethylene glycol (PEG) 3350 (Miralax) packet 17 g, 17 g, Oral, Daily PRN, Sami Rodriguez MD promethazine (Phenergan) solution 12.5 mg, 12.5 mg, Oral, q6h PRN, Sami Rodriguez MD [5] Allergies Allergen Reactions Ketorolac Hives and Shortness of breath Other reaction(s): Hives Ondansetron Shortness of breath and Hives Other reaction(s): Hives, Respiratory distress Seasonal Itching and Other Stuffy nose documented in this encounter [facility] 05-09-2025 Note [facility] 05-09-2025 Note [facility] 05-09-2025 Emergency department Note Pt report given to [place] at 4N , no questions or concerns after report at this time , pt traveling POV , pt stable on departure , IV intact [facility] 05-09-2025 Emergency department Note Pt report given to [place] at 4N , no questions or concerns after report at this time , pt traveling POV , pt stable on departure , IV intact EMERGENCY DEPARTMENT ENCOUNTER Pt Name: Mel Wall Birthdate 1985 Date of evaluation: 05/09/2025 ED Provider: Shannon Parsons PA-C CHIEF COMPLAINT Chief Complaint Patient presents with Abdominal Pain Pt states she was at work today when she stood up and felt a pop in her RLQ. PT reports pain and nausea. Pt states she had a hernia repair in Jul. HISTORY OF PRESENT ILLNESS (Location/Symptom, Timing/Onset, Context/Setting, Quality, Duration, Modifying Factors, Severity) Note limiting factors. I wore appropriate PPE for the entirety of this encounter. HPI Mel Wall is a 39 y.o. female who presents to the emergency department for further evaluation of concern for abdominal pain. Patient states that she was at work today when she stood up and felt a pop in her upper abdomen, and states that she is now having bulging and persistent pain, with associated nausea and vomiting. Had a hernia repair in July that was complicated due to postop seromas requiring percutaneous drainage, and has had persistent abdominal wall issues/abdominal pain issues ever since then. Patient states that she is concerned that the hernia is back, this prompted her to come back to the emergency department today. Patient was seen and evaluated on 04-29-[address] abdomen pelvis which showed inflammatory versus infectious cause/source around the area, but is now back today with worsening pain and worsening swelling. Nursing Notes were reviewed. Limitations to history: None Outside historians: None REVIEW OF SYSTEMS Review of Systems 14 systems reviewed, positives and pertinent negatives as per HPI. All other systems were reviewed and are negative. PAST MEDICAL HISTORY Medical History[1] SURGICAL HISTORY Surgical History[2] CURRENT MEDICATIONS Previous Medications ACETAMINOPHEN (TYLENOL) 325 MG TABLET Take 650 mg by mouth every 6 hours as needed for mild pain (1-3), moderate pain (4-6), headaches or fever. ALBUTEROL 108 (90 BASE) MCG/ACT INHALER Inhale 2 puffs every 4 hours as needed for wheezing or shortness of breath. FLUOXETINE (PROZAC) 20 MG CAPSULE Take 20 mg by mouth daily. HYDROXYZINE HCL (ATARAX) 25 MG TABLET Take 1 tablet (25 mg) by mouth every 8 hours as needed for itching for up to 7 days. ALLERGIES Ketorolac, Ondansetron, and Seasonal FAMILY HISTORY Family History[3] SOCIAL HISTORY Social History[4] SCREENINGS PHYSICAL EXAM ED Triage Vitals [05/09/25 1735] Temp Heart Rate Resp BP 37.1 C (98.7 F) 91 18 (!) 178/86 SpO2 Temp Source Heart Rate Source Patient Position 99 % Temporal Monitor -- BP Location FiO2 (%) -- -- Physical Exam Vitals and nursing note reviewed. Constitutional: General: She is not in acute distress. Appearance: She is well-developed. HENT: Head: Normocephalic and atraumatic. Eyes: Conjunctiva/sclera: Conjunctivae normal. Cardiovascular: Rate and Rhythm: Normal rate and regular rhythm. Heart sounds: No murmur heard. Pulmonary: Effort: Pulmonary effort is normal. No respiratory distress. Breath sounds: Normal breath sounds. Abdominal: Palpations: Abdomen is soft. Tenderness: There is no abdominal tenderness. Comments: ABDOMEN: The abdomen is soft and diffuse abdominal pain. There does appear to be an area of raised abdominal wall that has no skin changes, does not appear to be overtly incarcerated or strangulated. There also appears to be some diastases recti, there is also a large vertical incisional site from previous abdominal surgery noted.. There is no guarding, rigidity, rebound tenderness. No right or left CVA tenderness at this time. Patient has no hernias or masses noted. No McBurney's point tenderness. No Yoon sign. Musculoskeletal: General: No swelling. Cervical back: Neck supple. Skin: General: Skin is warm and dry. Capillary Refill: Capillary refill takes less than 2 seconds. Neurological: Mental Status: She is alert. Psychiatric: Mood and Affect: Mood normal. DIAGNOSTIC RESULTS RADIOLOGY (Per Emergency Physician): Interpretation per the Radiologist below, if available at the time of this note: CT abdomen pelvis w contrast Final Result 1. There is a postsurgical small bowel anastomosis at the midline (previous location left abdomen on 04/29/2025), with eccentric circumferential wall thickening which could represent partial intussusception versus mass and/or inflammation. If pain persists, consider follow-up imaging with GI contrast and/or GI consultation. 2. Ventral hernia repair changes with multiple ventral fatty hernias. 3. Nonobstructive right renal calculus. No hydronephrosis. 4. Additional findings, as above. Report Dictated on Electronically Signed By: Michelle Velazquez MD Electronically Signed Date/Time: 05/09/2025 7:16 PM EDT LABS: Labs Reviewed COMPREHENSIVE METABOLIC PANEL - Abnormal Result Value SODIUM 140 POTASSIUM 3.3 (*) CHLORIDE 107 CARBON DIOXIDE 20 (*) ANION GAP 13 UREA NITROGEN 10 CREATININE 0.65 GLUCOSE 106 (*) CALCIUM 9.1 AST (SGOT) 14 ALT 11 ALKALINE PHOSPHATASE 41 ALBUMIN 4.2 BILIRUBIN, TOTAL 0.2 TOTAL PROTEIN 7.3 eGFR >90.0 LACTIC ACID WITH REFLEX - Abnormal LACTIC ACID 3.0 (*) CBC WITH AUTO DIFFERENTIAL - Normal Auto WBC 8.9 RBC 4.13 Hemoglobin 13.0 Hematocrit 38.4 MCV 93.0 MCH 31.5 MCHC 33.9 RDW 12.3 Platelets 222 MPV 10.0 nRBC 0.0 Neutrophils Relative 61.7 Lymphocytes Relative 29.5 Monocytes Relative 5.9 Eosinophils Relative 2.1 Basophils Relative 0.5 Immature Grans % 0.3 Neutrophils Absolute 5.5 Lymphocytes Absolute 2.6 Monocytes Absolute 0.5 Eosinophils Absolute 0.2 Basophils Absolute 0.0 Immature Grans Absolute 0.0 COMPLETE URINALYSIS WITH REFLEX TO CULTURE - Normal Color, Urine Colorless Clarity, Urine Clear pH, Urine 6.5 Leukocytes, Urine Negative Nitrite, Urine Negative Protein, Urine Negative Glucose, Urine Normal Bilirubin, Urine Negative Ketones, Urine Negative Urobilinogen, Urine Normal Blood, Urine Negative SPECIFIC GRAVITY OF URINE (NUMERIC) 1.006 Narrative: A specimen with <=10 WBC is not consistent with inflammation. This specimen will not reflex to a urine culture. HCG QUALITATIVE URINE HCG,URINE QUAL Negative Narrative: is the most common reason for HCG in urine, although choriocarcinoma, hydatidiform mole, and certain nontrophoblastic malignancies also result in detectable urinary HCG levels. Sensitivity = 20mIU/mL. LACTIC ACID WITH REFLEX All other labs were within normal range or not returned as of this dictation. EMERGENCY DEPARTMENT COURSE and DIFFERENTIAL DIAGNOSIS/MDM: Vitals: Vitals: 05/09/25 1733 05/09/25 1735 BP: (!) 178/86 Pulse: 91 Resp: 18 Temp: 37.1 C (98.7 F) TempSrc: Temporal SpO2: 99% Weight: 99.8 kg (220 lb) Height: 1.651 m (5' 5) Medications morphine injection 4 mg (4 mg IntraVENous Given 05/09/251823) promethazine (Phenergan) injection 6.25 mg (6.25 mg IntraMUSCular Given 05/09/251823) sodium chloride 0.9 % bolus 1,000 mL (1,000 mL IntraVENous New Bag 05/09/251823) iopamidol (Isovue-370) 76 % injection 75 mL (75 mL IntraVENous Given 05/09/251851) HYDROmorphone (Dilaudid) injection 1 mg (1 mg IntraVENous Given 05/09/251914) sodium chloride 0.9 % bolus 1,000 mL (1,000 mL IntraVENous New Bag 05/09/251940) LORazepam (Ativan) injection 1 mg (1 mg IntraVENous Given 05/09/252003) HYDROmorphone (Dilaudid) injection 0.5 mg (0.5 mg IntraVENous Given 05/09/252121) metoclopramide (Reglan) injection 10 mg (10 mg IntraVENous Given 05/09/252122) diphenhydrAMINE (BENADryl) injection 25 mg (25 mg IntraVENous Given 05/09/252122) ED care was supervised by Dr. Mueller who independently examined and evaluated the patient. Please see their attestation note for further details. In brief, Mel Wall is a 39 y.o. female who presented to the emergency department for further ration of concern for abdominal pain, patient states that occurred. Having worsening pain was previously seen here less than 10 days ago. Nursing notes and medical records reviewed, vital signs been within normal limits and patient been hypertensive Differential considerations included-intractable pain intractable nausea vomiting, intussusception, mass, other infectious or inflammatory etiologies around the anastomoses. SBO LBO ventral hernia, incarcerated or strangulated hernia, Initial medical management includes-fall in the emergency department, patient was given IV fluids Phenergan morphine Dilaudid second liter of IV fluids Ativan Dilaudid Reglan Benadryl with no improvement of her symptoms for the patient. Other medications considered-none Initial workup includes-lactic acid CMP hCG qualitative CBC urinalysis CT abdomen pelvis with contrast Other workup considerations included-none Upon reassessment patient-well appearing and in no acute distress Lab workup results-urinalysis negative. CBC shows white blood cell count 8.9, hemoglobin hematocrit stable. hCG qualitative is negative. CMP shows potassium 3.3,, Nackes at 20, glucose 106. Lactic acid 3. Imaging results per radiology- ct abdomen pelvis- Impression: 1. There is a postsurgical small bowel anastomosis at the midline (previous location left abdomen on 04/29/2025), with eccentric circumferential wall thickening which could represent partial intussusception versus mass and/or inflammation. If pain persists, consider follow-up imaging with GI contrast and/or GI consultation. 2. Ventral hernia repair changes with multiple ventral fatty hernias. 3. Nonobstructive right renal calculus. No hydronephrosis. 4. Additional findings, as above. Chronic conditions contributing to patients presentation include-hx of frequent bouts of abdominal pain, and visits to the emergency department for severe abdominal pain status post surgical intervention in 2023. Postoperative complications, history of ventral hernia repair, history of incarcerated hernias I have low suspiscion for (effectively ruled ddx out via)-at this time I do a lower clinical suspicion for an incarcerated, or strangulated hernia. I have a low clinical suspicion for AMANUEL electrolyte derangement, UTI pyelonephritis, abscess formation, small bowel obstruction, large bowel obstruction, Consulted-originally had a page out to general surgery here at [facility] secondary to concern for persistent pain, status post surgical intervention in 2023, and patient being seen multiple times this abdominal pain, but secondary to tach patient had persistent pain, and persistent nausea and vomiting, patient to be admitted to [facility] for intractable abdominal pain, intractable nausea vomiting, as well as for further evaluation of this abnormal CT. Patient was agreeable with this plan. This with [facility], and they are going to admit the patient to their service. Critical care-none Diagnosis-intractable abdominal pain, ventral hernia without obstruction or gangrene, abnormal CT of the abdomen. Disposition- patient admitted to [facility] for further evaluation and management. PROCEDURES: Unless otherwise noted below, none Procedures FINAL IMPRESSION 1. Intractable abdominal pain 2. Ventral hernia without obstruction or gangrene 3. Abnormal CT of the abdomen DISPOSITION Admit 05/09/2025 09:17:40 PM PATIENT REFERRED TO: No follow-up provider specified. DISCHARGE MEDICATIONS: New Prescriptions No medications on file (Comment: Please note this report has been produced using speech recognition software and may contain errors related to that system including errors in grammar, punctuation, and spelling, as well as words and phrases that may be inappropriate. 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 Partial obstruction of small intestine (HCC) 06/13/2024 [2] Past Surgical History: Procedure Laterality Date APPENDECTOMY BILIOPANCREATIC DIVERSION 10/23/2008 Sherie @ [facility]; janel-en-y duodenojejunostomy for bile reflux CHOLECYSTECTOMY 02/2007 lap COLONOSCOPY N/A 11/29/2023 [facility]; repeat in 11/2033 EXPLORATORY LAPAROTOMY 06/10/2019 Veronica @ [facility]; ex lap, [facility]AI INCISION AND DRAINAGE OF WOUND 08/09/2013 [facility]; I&D of surgical incision of LLQ INCISIONAL HERNIA REPAIR 10/20/2017 [facility]; open primary repair INCISIONAL HERNIA REPAIR 07/12/2018 [facility]; open w/ mesh INCISIONAL HERNIA REPAIR 09/26/2018 [facility]; lap w/ mesh INCISIONAL HERNIA REPAIR 03/11/2020 [facility]; repair w/ mesh excision, mesh replacement ([facility] Mesh w/ Echo), [facility]AI INCISIONAL HERNIA REPAIR 07/19/2015 [facility]; open repair w/ mesh INCISIONAL HERNIA REPAIR 08/07/2024 [facility]; an open recurrent repair w/ mesh, [facility]AI, TAR, removal of infarcted cecal epiploic appendage PANNICULECTOMY (HISTORICAL) 08/07/2024 [facility] SOFT TISSUE MASS EXCISION 08/02/2013 [facility]; STM excision of LLQ TONSILLECTOMY [3] Family History Problem Relation Name Age of Onset Hypertension Father Diabetes Father [4] Social History Socioeconomic History Marital status: Tobacco Use Smoking status: Former Types: Cigarettes Smokeless tobacco: Never Substance and Sexual Activity Alcohol use: Not Currently Drug use: Yes Frequency: 2.0 times per week Types: Marijuana Comment: edibles Sexual activity: Not Currently Social Drivers of Health Financial Resource Strain: High Risk (04/24/2024) Overall Financial Resource Strain (CARDIA) Difficulty of Paying Living Expenses: Very hard Food Insecurity: Patient Declined (04/26/2024) Hunger Vital Sign Worried About Running Out of Food in the Last Year: Patient declined Ran Out of Food in the Last Year: Patient declined Recent Concern: Food Insecurity - Food Insecurity Present (04/24/2024) Hunger Vital Sign Worried About Running Out of Food in the Last Year: Often true Ran Out of Food in the Last Year: Often true Transportation Needs: Patient Declined (04/26/2024) PRAPARE - Transportation Lack of Transportation (Medical): Patient declined Lack of Transportation (Non-Medical): Patient declined Recent Concern: Transportation Needs - Unmet Transportation Needs (04/24/2024) PRAPARE - Transportation Lack of Transportation (Medical): Yes Lack of Transportation (Non-Medical): Yes Physical Activity: Sufficiently Active (04/24/2024) Exercise Vital Sign Days of Exercise per Week: 7 days Minutes of Exercise per Session: 60 min Stress: Stress Concern Present (04/24/2024) [employer] [place] [employer] - Occupational Stress Questionnaire Feeling of Stress : Very much Social Connections: Moderately Integrated (04/24/2024) Social Connection and Isolation Panel [NHANES] Frequency of Communication with Friends and Family: Twice a week Frequency of Social Gatherings with Friends and Family: Once a week Attends [employer] Services: More than 4 times per year Active Member of Clubs or Organizations: No Attends Club or Organization Meetings: More than 4 times per year Marital Status: Intimate Partner Violence: Not At Risk (02/21/2025) Humiliation, Afraid, Rape, and Kick questionnaire Fear of Current or Ex-Partner: No Emotionally Abused: No Physically Abused: No Sexually Abused: No Housing Stability: Unknown (04/26/2024) Housing Stability Vital Sign Unable to Pay for Housing in the Last Year: Patient declined Number of Times Moved in the Last Year: 1 Homeless in the Last Year: No Recent Concern: Housing Stability - High Risk (04/24/2024) Housing Stability Vital Sign Unable to Pay for Housing in the Last Year: Yes Number of Times Moved in the Last Year: 1 Homeless in the Last Year: No Shannon Parsons PA-C 07/31/25 2200 Cosigned by Donald Mueller Jr., DO at 05/10/2025 2:37 AM EDT Emergency Department Encounter [facility] Patient: Mel Wall : 1985 Date of Evaluation: 05/09/2025 ED Supervising Physician: Donald Mueller DO I personally evaluated Mel Wall and made/approved the management plan and take responsibility for the patient management. This will serve as my Supervisory note and shared attestation. I did perform a substantive portion of the visit including all aspects of the Medical Decision Making. I wore appropriate PPE for the entirety of this encounter. CHIEF COMPLAINT Chief Complaint Patient presents with Abdominal Pain Pt states she was at work today when she stood up and felt a pop in her RLQ. PT reports pain and nausea. Pt states she had a hernia repair in Jul. In brief, Mel Wall is a 39 y.o. that presents to the emergency department Patient with recent abdominal surgery states. At work they felt a pop in her right lower quadrant as a hernia repair is bulging has had similar discomfort in the last few weeks and has persisted associated with nausea and vomiting pain rate 10/10 Focused exam: PHYSICIAL EXAM: Vitals reviewed GENERAL: Awake and alert in room, appears uncomfortable retching at times but, nondiaphoretic nontoxic-appearing appears nourished and normally developed. Vital signs as documented. EYES: Head exam is unremarkable. No scleral icterus HEENT: Mucous membranes moist. Nares patent without copious rhinorrhea. LUNGS: no increased work of breathing, no conversational dyspnea ABDOMEN: + Tenderness to palpation mid abdominal periumbilical area with firmness, no definitive hernia palpated no duskiness, penile proportion to exam, otherwise Soft, non-tender, non-distended, no rebound/guarding, with no obvious masses EXTREMITIES: No peripheral edema, with no obvious deformities. No asymmetric swelling of distal lower extremities, no calf pain to palpation, no exam findings concerning for deep venous thrombosis, well-perfused SKIN: Good color, with no significant rashes. No pallor. NEURO: No obvious neurological deficits, normal sensation and strength bilaterally. Patient able to ambulate. PSYCH: Mood and affect normal. Appropriate for age. Labs Reviewed COMPREHENSIVE METABOLIC PANEL - Abnormal Result Value SODIUM 140 POTASSIUM 3.3 (*) CHLORIDE 107 CARBON DIOXIDE 20 (*) ANION GAP 13 UREA NITROGEN 10 CREATININE 0.65 GLUCOSE 106 (*) CALCIUM 9.1 AST (SGOT) 14 ALT 11 ALKALINE PHOSPHATASE 41 ALBUMIN 4.2 BILIRUBIN, TOTAL 0.2 TOTAL PROTEIN 7.3 eGFR >90.0 LACTIC ACID WITH REFLEX - Abnormal LACTIC ACID 3.0 (*) LACTIC ACID WITH REFLEX - Abnormal LACTIC ACID 3.5 (*) CBC WITH AUTO DIFFERENTIAL - Normal Auto WBC 8.9 RBC 4.13 Hemoglobin 13.0 Hematocrit 38.4 MCV 93.0 MCH 31.5 MCHC 33.9 RDW 12.3 Platelets 222 MPV 10.0 nRBC 0.0 Neutrophils Relative 61.7 Lymphocytes Relative 29.5 Monocytes Relative 5.9 Eosinophils Relative 2.1 Basophils Relative 0.5 Immature Grans % 0.3 Neutrophils Absolute 5.5 Lymphocytes Absolute 2.6 Monocytes Absolute 0.5 Eosinophils Absolute 0.2 Basophils Absolute 0.0 Immature Grans Absolute 0.0 COMPLETE URINALYSIS WITH REFLEX TO CULTURE - Normal Color, Urine Colorless Clarity, Urine Clear pH, Urine 6.5 Leukocytes, Urine Negative Nitrite, Urine Negative Protein, Urine Negative Glucose, Urine Normal Bilirubin, Urine Negative Ketones, Urine Negative Urobilinogen, Urine Normal Blood, Urine Negative SPECIFIC GRAVITY OF URINE (NUMERIC) 1.006 Narrative: A specimen with <=10 WBC is not consistent with inflammation. This specimen will not reflex to a urine culture. HCG QUALITATIVE URINE HCG,URINE QUAL Negative Narrative: is the most common reason for HCG in urine, although choriocarcinoma, hydatidiform mole, and certain nontrophoblastic malignancies also result in detectable urinary HCG levels. Sensitivity = 20mIU/mL. CBC (HEMOGRAM) BASIC METABOLIC PANEL MAGNESIUM LACTIC ACID WITH REFLEX Medications FLUoxetine (PROzac) capsule 20 mg (has no administration in time range) acetaminophen (Tylenol) tablet 650 mg (has no administration in time range) Or acetaminophen (Tylenol) suppository 650 mg (has no administration in time range) polyethylene glycol (PEG) 3350 (Miralax) packet 17 g (has no administration in time range) enoxaparin (Lovenox) syringe 40 mg (has no administration in time range) promethazine (Phenergan) solution 12.5 mg (has no administration in time range) naloxone (Narcan) 0.4 mg in 0.9% sodium chloride 10 mL syringe (has no administration in time range) morphine injection 2 mg ( IntraVENous See Alternative 05/10/2543) Or morphine injection 4 mg (4 mg IntraVENous Given 05/10/2543) morphine injection 4 mg (4 mg IntraVENous Given 05/09/251823) promethazine (Phenergan) injection 6.25 mg (6.25 mg IntraMUSCular Given 05/09/251823) sodium chloride 0.9 % bolus 1,000 mL (0 mL IntraVENous Stopped 05/09/252235) iopamidol (Isovue-370) 76 % injection 75 mL (75 mL IntraVENous Given 05/09/251851) HYDROmorphone (Dilaudid) injection 1 mg (1 mg IntraVENous Given 05/09/251914) sodium chloride 0.9 % bolus 1,000 mL (0 mL IntraVENous Stopped 05/09/252235) LORazepam (Ativan) injection 1 mg (1 mg IntraVENous Given 05/09/252003) HYDROmorphone (Dilaudid) injection 0.5 mg (0.5 mg IntraVENous Given 05/09/252121) metoclopramide (Reglan) injection 10 mg (10 mg IntraVENous Given 05/09/252122) diphenhydrAMINE (BENADryl) injection 25 mg (25 mg IntraVENous Given 05/09/252122) Brief ED course/MDM: ED Course as of 05/10/25121 [facility] May 09, [id number] Patient still having some discomfort, will discuss with general surgery [SL] ED Course User Index [SL] Donald Mueller Jr., DO Diagnoses as of 05/10/25121 Intractable abdominal pain Ventral hernia without obstruction or gangrene Abnormal CT of the abdomen All results/imaging if obtained reviewed and interpreted, results trended/compared with previous levels if available After reviewing patient's comorbidities, severity of history of presenting illness, labs and imaging if obtained in conjunction with physical exam and course in emergency department, deemed to have potential for deterioration/progression of symptoms that could lead to multiple morbidities or mortality, decision made that patient requires further observation/evaluation/treatment and patient admitted to appropriate service, patient/family understand and agree with plan. chart created with voice recognition software, errors may be present due to software's interpretation Diagnostics interpreted by me: CT abdomen pelvis w contrast Final Result 1. There is a postsurgical small bowel anastomosis at the midline (previous location left abdomen on 04/29/2025), with eccentric circumferential wall thickening which could represent partial intussusception versus mass and/or inflammation. If pain persists, consider follow-up imaging with GI contrast and/or GI consultation. 2. Ventral hernia repair changes with multiple ventral fatty hernias. 3. Nonobstructive right renal calculus. No hydronephrosis. 4. Additional findings, as above. Report Dictated on Electronically Signed By: Michelle Velazqeuz MD Electronically Signed Date/Time: 05/09/2025 7:16 PM EDT EKG Results No results found for the last 960 hours. 1. Intractable abdominal pain 2. Ventral hernia without obstruction or gangrene 3. Abnormal CT of the abdomen DISPOSITION Admit 05/09/2025 09:17:40 PM PATIENT REFERRED TO: No follow-up provider specified. DISCHARGE MEDICATIONS: Current Discharge Medication List All diagnostic, treatment, and disposition decisions were made by myself in conjunction with the [facility]. For all further details of the patient's emergency department visit, please see their documentation. (Comment: Please note this report has been produced using speech recognition software and may contain errors related to that system including errors in grammar, punctuation, and spelling, as well as words and phrases that may be inappropriate. If there are any questions or concerns please feel free to contact the dictating provider for clarification.) Donald Mueller DO [employer] Donald Mueller Jr., 05/10/25 0123 documented in this encounter [facility] 05-09-2025 Physician Emergency department Note EMERGENCY DEPARTMENT ENCOUNTER Pt Name: Mel Wall Birthdate 1985 Date of evaluation: 05/09/2025 ED Provider: Shannon Parsons PA-C CHIEF COMPLAINT Chief Complaint Patient presents with Abdominal Pain Pt states she was at work today when she stood up and felt a pop in her RLQ. PT reports pain and nausea. Pt states she had a hernia repair in Jul. HISTORY OF PRESENT ILLNESS (Location/Symptom, Timing/Onset, Context/Setting, Quality, Duration, Modifying Factors, Severity) Note limiting factors. I wore appropriate PPE for the entirety of this encounter. HPI Mel Wall is a 39 y.o. female who presents to the emergency department for further evaluation of concern for abdominal pain. Patient states that she was at work today when she stood up and felt a pop in her upper abdomen, and states that she is now having bulging and persistent pain, with associated nausea and vomiting. Had a hernia repair in July that was complicated due to postop seromas requiring percutaneous drainage, and has had persistent abdominal wall issues/abdominal pain issues ever since then. Patient states that she is concerned that the hernia is back, this prompted her to come back to the emergency department today. Patient was seen and evaluated on 04-29-[address] abdomen pelvis which showed inflammatory versus infectious cause/source around the area, but is now back today with worsening pain and worsening swelling. Nursing Notes were reviewed. Limitations to history: None Outside historians: None REVIEW OF SYSTEMS Review of Systems 14 systems reviewed, positives and pertinent negatives as per HPI. All other systems were reviewed and are negative. PAST MEDICAL HISTORY Medical History[1] SURGICAL HISTORY Surgical History[2] CURRENT MEDICATIONS Previous Medications ACETAMINOPHEN (TYLENOL) 325 MG TABLET Take 650 mg by mouth every 6 hours as needed for mild pain (1-3), moderate pain (4-6), headaches or fever. ALBUTEROL 108 (90 BASE) MCG/ACT INHALER Inhale 2 puffs every 4 hours as needed for wheezing or shortness of breath. FLUOXETINE (PROZAC) 20 MG CAPSULE Take 20 mg by mouth daily. HYDROXYZINE HCL (ATARAX) 25 MG TABLET Take 1 tablet (25 mg) by mouth every 8 hours as needed for itching for up to 7 days. ALLERGIES Ketorolac, Ondansetron, and Seasonal FAMILY HISTORY Family History[3] SOCIAL HISTORY Social History[4] SCREENINGS PHYSICAL EXAM ED Triage Vitals [05/09/25 1735] Temp Heart Rate Resp BP 37.1 C (98.7 F) 91 18 (!) 178/86 SpO2 Temp Source Heart Rate Source Patient Position 99 % Temporal Monitor -- BP Location FiO2 (%) -- -- Physical Exam Vitals and nursing note reviewed. Constitutional: General: She is not in acute distress. Appearance: She is well-developed. HENT: Head: Normocephalic and atraumatic. Eyes: Conjunctiva/sclera: Conjunctivae normal. Cardiovascular: Rate and Rhythm: Normal rate and regular rhythm. Heart sounds: No murmur heard. Pulmonary: Effort: Pulmonary effort is normal. No respiratory distress. Breath sounds: Normal breath sounds. Abdominal: Palpations: Abdomen is soft. Tenderness: There is no abdominal tenderness. Comments: ABDOMEN: The abdomen is soft and diffuse abdominal pain. There does appear to be an area of raised abdominal wall that has no skin changes, does not appear to be overtly incarcerated or strangulated. There also appears to be some diastases recti, there is also a large vertical incisional site from previous abdominal surgery noted.. There is no guarding, rigidity, rebound tenderness. No right or left CVA tenderness at this time. Patient has no hernias or masses noted. No McBurney's point tenderness. No Yoon sign. Musculoskeletal: General: No swelling. Cervical back: Neck supple. Skin: General: Skin is warm and dry. Capillary Refill: Capillary refill takes less than 2 seconds. Neurological: Mental Status: She is alert. Psychiatric: Mood and Affect: Mood normal. DIAGNOSTIC RESULTS RADIOLOGY (Per Emergency Physician): Interpretation per the Radiologist below, if available at the time of this note: CT abdomen pelvis w contrast Final Result 1. There is a postsurgical small bowel anastomosis at the midline (previous location left abdomen on 04/29/2025), with eccentric circumferential wall thickening which could represent partial intussusception versus mass and/or inflammation. If pain persists, consider follow-up imaging with GI contrast and/or GI consultation. 2. Ventral hernia repair changes with multiple ventral fatty hernias. 3. Nonobstructive right renal calculus. No hydronephrosis. 4. Additional findings, as above. Report Dictated on Electronically Signed By: Michelle Velazquez MD Electronically Signed Date/Time: 05/09/2025 7:16 PM EDT LABS: Labs Reviewed COMPREHENSIVE METABOLIC PANEL - Abnormal Result Value SODIUM 140 POTASSIUM 3.3 (*) CHLORIDE 107 CARBON DIOXIDE 20 (*) ANION GAP 13 UREA NITROGEN 10 CREATININE 0.65 GLUCOSE 106 (*) CALCIUM 9.1 AST (SGOT) 14 ALT 11 ALKALINE PHOSPHATASE 41 ALBUMIN 4.2 BILIRUBIN, TOTAL 0.2 TOTAL PROTEIN 7.3 eGFR >90.0 LACTIC ACID WITH REFLEX - Abnormal LACTIC ACID 3.0 (*) CBC WITH AUTO DIFFERENTIAL - Normal Auto WBC 8.9 RBC 4.13 Hemoglobin 13.0 Hematocrit 38.4 MCV 93.0 MCH 31.5 MCHC 33.9 RDW 12.3 Platelets 222 MPV 10.0 nRBC 0.0 Neutrophils Relative 61.7 Lymphocytes Relative 29.5 Monocytes Relative 5.9 Eosinophils Relative 2.1 Basophils Relative 0.5 Immature Grans % 0.3 Neutrophils Absolute 5.5 Lymphocytes Absolute 2.6 Monocytes Absolute 0.5 Eosinophils Absolute 0.2 Basophils Absolute 0.0 Immature Grans Absolute 0.0 COMPLETE URINALYSIS WITH REFLEX TO CULTURE - Normal Color, Urine Colorless Clarity, Urine Clear pH, Urine 6.5 Leukocytes, Urine Negative Nitrite, Urine Negative Protein, Urine Negative Glucose, Urine Normal Bilirubin, Urine Negative Ketones, Urine Negative Urobilinogen, Urine Normal Blood, Urine Negative SPECIFIC GRAVITY OF URINE (NUMERIC) 1.006 Narrative: A specimen with <=10 WBC is not consistent with inflammation. This specimen will not reflex to a urine culture. HCG QUALITATIVE URINE HCG,URINE QUAL Negative Narrative: is the most common reason for HCG in urine, although choriocarcinoma, hydatidiform mole, and certain nontrophoblastic malignancies also result in detectable urinary HCG levels. Sensitivity = 20mIU/mL. LACTIC ACID WITH REFLEX All other labs were within normal range or not returned as of this dictation. EMERGENCY DEPARTMENT COURSE and DIFFERENTIAL DIAGNOSIS/MDM: Vitals: Vitals: 05/09/25 1733 05/09/25 1735 BP: (!) 178/86 Pulse: 91 Resp: 18 Temp: 37.1 C (98.7 F) TempSrc: Temporal SpO2: 99% Weight: 99.8 kg (220 lb) Height: 1.651 m (5' 5) Medications morphine injection 4 mg (4 mg IntraVENous Given 05/09/25 1824) promethazine (Phenergan) injection 6.25 mg (6.25 mg IntraMUSCular Given 05/09/251823) sodium chloride 0.9 % bolus 1,000 mL (1,000 mL IntraVENous New Bag 05/09/251823) iopamidol (Isovue-370) 76 % injection 75 mL (75 mL IntraVENous Given 05/09/251851) HYDROmorphone (Dilaudid) injection 1 mg (1 mg IntraVENous Given 05/09/251914) sodium chloride 0.9 % bolus 1,000 mL (1,000 mL IntraVENous New Bag 05/09/251940) LORazepam (Ativan) injection 1 mg (1 mg IntraVENous Given 05/09/252003) HYDROmorphone (Dilaudid) injection 0.5 mg (0.5 mg IntraVENous Given 05/09/252121) metoclopramide (Reglan) injection 10 mg (10 mg IntraVENous Given 05/09/252122) diphenhydrAMINE (BENADryl) injection 25 mg (25 mg IntraVENous Given 05/09/252122) ED care was supervised by Dr. Mueller who independently examined and evaluated the patient. Please see their attestation note for further details. In brief, Mel Wall is a 39 y.o. female who presented to the emergency department for further ration of concern for abdominal pain, patient states that occurred. Having worsening pain was previously seen here less than 10 days ago. Nursing notes and medical records reviewed, vital signs been within normal limits and patient been hypertensive Differential considerations included-intractable pain intractable nausea vomiting, intussusception, mass, other infectious or inflammatory etiologies around the anastomoses. SBO LBO ventral hernia, incarcerated or strangulated hernia, Initial medical management includes-fall in the emergency department, patient was given IV fluids Phenergan morphine Dilaudid second liter of IV fluids Ativan Dilaudid Reglan Benadryl with no improvement of her symptoms for the patient. Other medications considered-none Initial workup includes-lactic acid CMP hCG qualitative CBC urinalysis CT abdomen pelvis with contrast Other workup considerations included-none Upon reassessment patient-well appearing and in no acute distress Lab workup results-urinalysis negative. CBC shows white blood cell count 8.9, hemoglobin hematocrit stable. hCG qualitative is negative. CMP shows potassium 3.3,, Nackes at 20, glucose 106. Lactic acid 3. Imaging results per radiology- ct abdomen pelvis- Impression: 1. There is a postsurgical small bowel anastomosis at the midline (previous location left abdomen on 04/29/2025), with eccentric circumferential wall thickening which could represent partial intussusception versus mass and/or inflammation. If pain persists, consider follow-up imaging with GI contrast and/or GI consultation. 2. Ventral hernia repair changes with multiple ventral fatty hernias. 3. Nonobstructive right renal calculus. No hydronephrosis. 4. Additional findings, as above. Chronic conditions contributing to patients presentation include-hx of frequent bouts of abdominal pain, and visits to the emergency department for severe abdominal pain status post surgical intervention in 2023. Postoperative complications, history of ventral hernia repair, history of incarcerated hernias I have low suspiscion for (effectively ruled ddx out via)-at this time I do a lower clinical suspicion for an incarcerated, or strangulated hernia. I have a low clinical suspicion for AMANUEL electrolyte derangement, UTI pyelonephritis, abscess formation, small bowel obstruction, large bowel obstruction, Consulted-originally had a page out to general surgery here at [facility] secondary to concern for persistent pain, status post surgical intervention in 2023, and patient being seen multiple times this abdominal pain, but secondary to tach patient had persistent pain, and persistent nausea and vomiting, patient to be admitted to [facility] for intractable abdominal pain, intractable nausea vomiting, as well as for further evaluation of this abnormal CT. Patient was agreeable with this plan. This with [facility], and they are going to admit the patient to their service. Critical care-none Diagnosis-intractable abdominal pain, ventral hernia without obstruction or gangrene, abnormal CT of the abdomen. Disposition- patient admitted to [facility] for further evaluation and management. PROCEDURES: Unless otherwise noted below, none Procedures FINAL IMPRESSION 1. Intractable abdominal pain 2. Ventral hernia without obstruction or gangrene 3. Abnormal CT of the abdomen DISPOSITION Admit 05/09/2025 09:17:40 PM PATIENT REFERRED TO: No follow-up provider specified. DISCHARGE MEDICATIONS: New Prescriptions No medications on file (Comment: Please note this report has been produced using speech recognition software and may contain errors related to that system including errors in grammar, punctuation, and spelling, as well as words and phrases that may be inappropriate. 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 Partial obstruction of small intestine (HCC) 06/13/2024 [2] Past Surgical History: Procedure Laterality Date APPENDECTOMY BILIOPANCREATIC DIVERSION 10/23/2008 Sherie @ [facility]; janel-en-y duodenojejunostomy for bile reflux CHOLECYSTECTOMY 02/2007 lap COLONOSCOPY N/A 11/29/2023 [facility]; repeat in 11/2033 EXPLORATORY LAPAROTOMY 06/10/2019 Veronica @ [facility]; ex lap, [facility] INCISION AND DRAINAGE OF WOUND 08/09/2013 [facility]; I&D of surgical incision of LLQ INCISIONAL HERNIA REPAIR 10/20/2017 [facility]; open primary repair INCISIONAL HERNIA REPAIR 07/12/2018 [facility]; open w/ mesh INCISIONAL HERNIA REPAIR 09/26/2018 [facility]; lap w/ mesh INCISIONAL HERNIA REPAIR 03/11/2020 [facility]; repair w/ mesh excision, mesh replacement ([facility] Mesh w/ Echo), [facility]AI INCISIONAL HERNIA REPAIR 07/19/2015 [facility]; open repair w/ mesh INCISIONAL HERNIA REPAIR 08/07/2024 [facility]; an open recurrent repair w/ mesh, [facility], TAR, removal of infarcted cecal epiploic appendage PANNICULECTOMY (HISTORICAL) 08/07/2024 [facility] SOFT TISSUE MASS EXCISION 08/02/2013 [facility]; STM excision of LLQ TONSILLECTOMY [3] Family History Problem Relation Name Age of Onset Hypertension Father Diabetes Father [4] Social History Socioeconomic History Marital status: Tobacco Use Smoking status: Former Types: Cigarettes Smokeless tobacco: Never Substance and Sexual Activity Alcohol use: Not Currently Drug use: Yes Frequency: 2.0 times per week Types: Marijuana Comment: edibles Sexual activity: Not Currently Social Drivers of Health Financial Resource Strain: High Risk (04/24/2024) Overall Financial Resource Strain (CARDIA) Difficulty of Paying Living Expenses: Very hard Food Insecurity: Patient Declined (04/26/2024) Hunger Vital Sign Worried About Running Out of Food in the Last Year: Patient declined Ran Out of Food in the Last Year: Patient declined Recent Concern: Food Insecurity - Food Insecurity Present (04/24/2024) Hunger Vital Sign Worried About Running Out of Food in the Last Year: Often true Ran Out of Food in the Last Year: Often true Transportation Needs: Patient Declined (04/26/2024) PRAPARE - Transportation Lack of Transportation (Medical): Patient declined Lack of Transportation (Non-Medical): Patient declined Recent Concern: Transportation Needs - Unmet Transportation Needs (04/24/2024) PRAPARE - Transportation Lack of Transportation (Medical): Yes Lack of Transportation (Non-Medical): Yes Physical Activity: Sufficiently Active (04/24/2024) Exercise Vital Sign Days of Exercise per Week: 7 days Minutes of Exercise per Session: 60 min Stress: Stress Concern Present (04/24/2024) [employer] [place] [employer] - Occupational Stress Questionnaire Feeling of Stress : Very much Social Connections: Moderately Integrated (04/24/2024) Social Connection and Isolation Panel [NHANES] Frequency of Communication with Friends and Family: Twice a week Frequency of Social Gatherings with Friends and Family: Once a week Attends [employer]ism Services: More than 4 times per year Active Member of Clubs or Organizations: No Attends Club or Organization Meetings: More than 4 times per year Marital Status: Intimate Partner Violence: Not At Risk (02/21/2025) Humiliation, Afraid, Rape, and Kick questionnaire Fear of Current or Ex-Partner: No Emotionally Abused: No Physically Abused: No Sexually Abused: No Housing Stability: Unknown (04/26/2024) Housing Stability Vital Sign Unable to Pay for Housing in the Last Year: Patient declined Number of Times Moved in the Last Year: 1 Homeless in the Last Year: No Recent Concern: Housing Stability - High Risk (04/24/2024) Housing Stability Vital Sign Unable to Pay for Housing in the Last Year: Yes Number of Times Moved in the Last Year: 1 Homeless in the Last Year: No Shannon Parsons PA-C 05/09/250 Cosigned by Donald Mueller Jr., DO at 05/10/2025 2:37 AM EDT [facility] 05-09-2025 Physician Emergency department Note Emergency Department Encounter [facility] Patient: Mel Wall : 1985 Date of Evaluation: 05/09/2025 ED Supervising Physician: Donald Mueller DO I personally evaluated Mel Wall and made/approved the management plan and take responsibility for the patient management. This will serve as my Supervisory note and shared attestation. I did perform a substantive portion of the visit including all aspects of the Medical Decision Making. I wore appropriate PPE for the entirety of this encounter. CHIEF COMPLAINT Chief Complaint Patient presents with Abdominal Pain Pt states she was at work today when she stood up and felt a pop in her RLQ. PT reports pain and nausea. Pt states she had a hernia repair in Jul. In brief, Mel Wall is a 39 y.o. that presents to the emergency department Patient with recent abdominal surgery states. At work they felt a pop in her right lower quadrant as a hernia repair is bulging has had similar discomfort in the last few weeks and has persisted associated with nausea and vomiting pain rate 10/10 Focused exam: PHYSICIAL EXAM: Vitals reviewed GENERAL: Awake and alert in room, appears uncomfortable retching at times but, nondiaphoretic nontoxic-appearing appears nourished and normally developed. Vital signs as documented. EYES: Head exam is unremarkable. No scleral icterus HEENT: Mucous membranes moist. Nares patent without copious rhinorrhea. LUNGS: no increased work of breathing, no conversational dyspnea ABDOMEN: + Tenderness to palpation mid abdominal periumbilical area with firmness, no definitive hernia palpated no duskiness, penile proportion to exam, otherwise Soft, non-tender, non-distended, no rebound/guarding, with no obvious masses EXTREMITIES: No peripheral edema, with no obvious deformities. No asymmetric swelling of distal lower extremities, no calf pain to palpation, no exam findings concerning for deep venous thrombosis, well-perfused SKIN: Good color, with no significant rashes. No pallor. NEURO: No obvious neurological deficits, normal sensation and strength bilaterally. Patient able to ambulate. PSYCH: Mood and affect normal. Appropriate for age. Labs Reviewed COMPREHENSIVE METABOLIC PANEL - Abnormal Result Value SODIUM 140 POTASSIUM 3.3 (*) CHLORIDE 107 CARBON DIOXIDE 20 (*) ANION GAP 13 UREA NITROGEN 10 CREATININE 0.65 GLUCOSE 106 (*) CALCIUM 9.1 AST (SGOT) 14 ALT 11 ALKALINE PHOSPHATASE 41 ALBUMIN 4.2 BILIRUBIN, TOTAL 0.2 TOTAL PROTEIN 7.3 eGFR >90.0 LACTIC ACID WITH REFLEX - Abnormal LACTIC ACID 3.0 (*) LACTIC ACID WITH REFLEX - Abnormal LACTIC ACID 3.5 (*) CBC WITH AUTO DIFFERENTIAL - Normal Auto WBC 8.9 RBC 4.13 Hemoglobin 13.0 Hematocrit 38.4 MCV 93.0 MCH 31.5 MCHC 33.9 RDW 12.3 Platelets 222 MPV 10.0 nRBC 0.0 Neutrophils Relative 61.7 Lymphocytes Relative 29.5 Monocytes Relative 5.9 Eosinophils Relative 2.1 Basophils Relative 0.5 Immature Grans % 0.3 Neutrophils Absolute 5.5 Lymphocytes Absolute 2.6 Monocytes Absolute 0.5 Eosinophils Absolute 0.2 Basophils Absolute 0.0 Immature Grans Absolute 0.0 COMPLETE URINALYSIS WITH REFLEX TO CULTURE - Normal Color, Urine Colorless Clarity, Urine Clear pH, Urine 6.5 Leukocytes, Urine Negative Nitrite, Urine Negative Protein, Urine Negative Glucose, Urine Normal Bilirubin, Urine Negative Ketones, Urine Negative Urobilinogen, Urine Normal Blood, Urine Negative SPECIFIC GRAVITY OF URINE (NUMERIC) 1.006 Narrative: A specimen with <=10 WBC is not consistent with inflammation. This specimen will not reflex to a urine culture. HCG QUALITATIVE URINE HCG,URINE QUAL Negative Narrative: is the most common reason for HCG in urine, although choriocarcinoma, hydatidiform mole, and certain nontrophoblastic malignancies also result in detectable urinary HCG levels. Sensitivity = 20mIU/mL. CBC (HEMOGRAM) BASIC METABOLIC PANEL MAGNESIUM LACTIC ACID WITH REFLEX Medications FLUoxetine (PROzac) capsule 20 mg (has no administration in time range) acetaminophen (Tylenol) tablet 650 mg (has no administration in time range) Or acetaminophen (Tylenol) suppository 650 mg (has no administration in time range) polyethylene glycol (PEG) 3350 (Miralax) packet 17 g (has no administration in time range) enoxaparin (Lovenox) syringe 40 mg (has no administration in time range) promethazine (Phenergan) solution 12.5 mg (has no administration in time range) naloxone (Narcan) 0.4 mg in 0.9% sodium chloride 10 mL syringe (has no administration in time range) morphine injection 2 mg ( IntraVENous See Alternative 05/10/2543) Or morphine injection 4 mg (4 mg IntraVENous Given 05/10/2543) morphine injection 4 mg (4 mg IntraVENous Given 05/09/251823) promethazine (Phenergan) injection 6.25 mg (6.25 mg IntraMUSCular Given 05/09/251823) sodium chloride 0.9 % bolus 1,000 mL (0 mL IntraVENous Stopped 05/09/252235) iopamidol (Isovue-370) 76 % injection 75 mL (75 mL IntraVENous Given 05/09/251851) HYDROmorphone (Dilaudid) injection 1 mg (1 mg IntraVENous Given 05/09/251914) sodium chloride 0.9 % bolus 1,000 mL (0 mL IntraVENous Stopped 05/09/252235) LORazepam (Ativan) injection 1 mg (1 mg IntraVENous Given 05/09/252003) HYDROmorphone (Dilaudid) injection 0.5 mg (0.5 mg IntraVENous Given 05/09/252121) metoclopramide (Reglan) injection 10 mg (10 mg IntraVENous Given 05/09/252122) diphenhydrAMINE (BENADryl) injection 25 mg (25 mg IntraVENous Given 05/09/252122) Brief ED course/MDM: ED Course as of 05/10/25121 [facility] May 09, 20251955 Patient still having some discomfort, will discuss with general surgery [SL] ED Course User Index [SL] Donald Mueller Jr., DO Diagnoses as of 05/10/25121 Intractable abdominal pain Ventral hernia without obstruction or gangrene Abnormal CT of the abdomen All results/imaging if obtained reviewed and interpreted, results trended/compared with previous levels if available After reviewing patient's comorbidities, severity of history of presenting illness, labs and imaging if obtained in conjunction with physical exam and course in emergency department, deemed to have potential for deterioration/progression of symptoms that could lead to multiple morbidities or mortality, decision made that patient requires further observation/evaluation/treatment and patient admitted to appropriate service, patient/family understand and agree with plan. chart created with voice recognition software, errors may be present due to software's interpretation Diagnostics interpreted by me: CT abdomen pelvis w contrast Final Result 1. There is a postsurgical small bowel anastomosis at the midline (previous location left abdomen on 04/29/2025), with eccentric circumferential wall thickening which could represent partial intussusception versus mass and/or inflammation. If pain persists, consider follow-up imaging with GI contrast and/or GI consultation. 2. Ventral hernia repair changes with multiple ventral fatty hernias. 3. Nonobstructive right renal calculus. No hydronephrosis. 4. Additional findings, as above. Report Dictated on Electronically Signed By: Michelle Velazquez MD Electronically Signed Date/Time: 05/09/2025 7:16 PM EDT EKG Results No results found for the last 960 hours. 1. Intractable abdominal pain 2. Ventral hernia without obstruction or gangrene 3. Abnormal CT of the abdomen DISPOSITION Admit 05/09/2025 09:17:40 PM PATIENT REFERRED TO: No follow-up provider specified. DISCHARGE MEDICATIONS: Current Discharge Medication List All diagnostic, treatment, and disposition decisions were made by myself in conjunction with the [facility]. For all further details of the patient's emergency department visit, please see their documentation. (Comment: Please note this report has been produced using speech recognition software and may contain errors related to that system including errors in grammar, punctuation, and spelling, as well as words and phrases that may be inappropriate. If there are any questions or concerns please feel free to contact the dictating provider for clarification.) Donald Mueller DO [employer] Donald Mueller Jr., DO 05/10/25 0123 [facility] Work Phone: 05-01-2025 Telephone encounter Note Pt called back and took the may 31 date so I put her in. [facility] 05-01-2025 Miscellaneous Notes Pt called back and took the may 31 date so I put her in. Sent MyChart msg offering Green on 05/31 at 12:30 Called pt to schedule OV, LVM Next available 05/29 or 05/[address] Christina. ED on 02/20 and today. -incision hernia s/p TAR 08/07/24 Pt called in to get a F/U to discuss the second half of her surgery (that was discussed when she was admitted a few months back, 02/21 consult) -pt states her nausea and pain have been pretty bad. Pulling sensation at lower abdomen -Would like OV to discuss these worsening symptoms and also the future surgery documented in this encounter [facility] 04-30-2025 Telephone encounter Note Sent MyChart msg offering Green on 05/31 at 12:30 [facility] 04-30-2025 Miscellaneous Notes Sent MyChart msg offering Green on 05/31 at 12:30 Called pt to schedule OV, LVM Next available 05/29 or 05/[address] Christina. ED on 02/20 and today. -incision hernia s/p TAR 08/07/24 Pt called in to get a F/U to discuss the second half of her surgery (that was discussed when she was admitted a few months back, 02/21 consult) -pt states her nausea and pain have been pretty bad. Pulling sensation at lower abdomen -Would like OV to discuss these worsening symptoms and also the future surgery documented in this encounter [facility] 04-29-2025 Telephone encounter Note Called pt to schedule OV, LVM Next available 05/29 or 05/31 [facility] 04-29-2025 Telephone encounter Note Established pt of Dr Christina. ED on 02/20 and today. -incision hernia s/p TAR 08/07/24 Pt called in to get a F/U to discuss the second half of her surgery (that was discussed when she was admitted a few months back, 02/21 consult) -pt states her nausea and pain have been pretty bad. Pulling sensation at lower abdomen -Would like OV to discuss these worsening symptoms and also the future surgery [facility] 04-29-2025 Note HNO ID: [id number] Author: NANCI DIAZ APRN.[employer] Service: ? Author Type: Nurse Practitioner Type: Progress Notes Filed: 04/29/2025 12:53 Note Text: [facility] [address] [place] [address] Social Director Center / [address] [place] [phone] Virtual Visit (Video + Audio) Visit Date: April 29, 2025 Name: Mel Wall Date of : 1985 MRN/E #: [id number] This is a virtual encounter with both video- and audio-enabled technology initiated for an established patient, parent or guardian not originating from a related Evaluation AND Management service provided within the previous 7 days nor leading to an Evaluation AND Management service or procedure within the next 24 hours or soonest available appointment. The patient gave consent for this virtual visit. Chief Complaint: Patient presents with: Abdominal Pain: Post hernia surgery with remaining adhesions. Needs one more surgery as initial could not be completed. Subjective Mel Wall is a 39 year old female here with the following complaint(s): Has been having flare up from her stomach surgery. Needs to have second part of tummy tuck because uterus is stuck to stomach. Was in the ED this morning; was given Morphine Phenergan and Reglan. Next surgery is not scheduled yet. Sees surgeon the end of June. Dr Taylor just keeps telling her to wait it out that I will have flares. Pain will flare up due to the adhesions. Morphine did not help in the ED. Pain remains at 8/10. Second dose of Phenergan helped. Has been off of anxiety medication and would like to remain off if possible, but knows it is adding to her issues. The history is provided by the patient. Review of Systems As noted in HPI ALLERGIES Allergen Reactions Toradol [Ketorolac] Hives, Shortness of Breath Zofran [Ondansetron* Hives, Shortness of Breath Seasonal Allergies Itching, Other: See Comments Stuffy nose Current Outpatient Medications Medication Sig oxyCODONE-acetaminophen (PERCOCET) 5-325 mg tablet Take 1 tablet by mouth every 8 hours as needed for pain for up to 7 days. promethazine (PHENERGAN) 12.5 mg tablet Take 1 tablet by mouth every 8 hours as needed. lidocaine (LIDODERM) 5 % Apply 1 Patch as directed every 24 hours. REMOVE AFTER 12 HOURS. FLUoxetine (PROZAC) 20 mg capsule Take 1 capsule by mouth once daily. naloxone 4 mg/actuation nasal spray (NARCAN) Use 1 spray in one nostril as needed for overdose. May repeat every 2 to 3 min in alternating nostrils until medical assistance is available No current facility-administered medications for this visit. I have confirmed and edited as necessary the chief complaint, medications, past medical, family and social histories. Objective There were no vitals filed for this visit. All exam findings were noted using video- and audio-enabled technology. Physical Exam Vitals reviewed: no vitals due to virtual visit. Constitutional: Appearance: She is ill-appearing. HENT: Head: Normocephalic and atraumatic. Nose: Nose normal. Eyes: Conjunctiva/sclera: Conjunctivae normal. Cardiovascular: Comments: No apparent cyanosis or edema Pulmonary: Comments: No apparent respiratory distress. Speaking in full sentences. Musculoskeletal: Cervical back: Normal range of motion. Skin: Comments: No apparent rash, lesion or bruising noted to exposed skin. Psychiatric: Mood and Affect: Mood normal. Behavior: Behavior normal. Thought Content: Thought content normal. Judgment: Judgment normal. Results for orders placed or performed during the hospital encounter of 05/30/24 COMPREHENSIVE METABOLIC PANEL Result Value Ref Range Protein, Total 6.6 6.3 - 8.0 g/dL Albumin 4.3 3.9 - 4.9 g/dL Calcium, Total 9.2 8.5 - 10.2 mg/dL Bilirubin, Total 0.4 0.2 - 1.3 mg/dL Alkaline Phosphatase 34 34 - 123 U/L AST 9 (L) 13 - 35 U/L ALT 11 7 - 38 U/L Glucose 115 (H) 74 - 99 mg/dL BUN 10 7 - 21 mg/dL Creatinine 0.62 0.58 - 0.96 mg/dL Sodium 139 136 - 144 mmol/L Potassium 4.0 3.7 - 5.1 mmol/L Chloride 107 98 - 107 mmol/L CO2 24 22 - 30 mmol/L Anion Gap 8 8 - 15 mmol/L Estimated Glomerular Filtration Rate 117 >=60 mL/min/1.73m? LIPASE Result Value Ref Range Lipase 33 16 - 61 U/L COMPLETE BLOOD COUNT AND DIFFERENTIAL Result Value Ref Range WBC 7.26 3.70 - 11.00 k/uL RBC 4.08 3.90 - 5.20 m/uL Hemoglobin 12.7 11.5 - 15.5 g/dL Hematocrit 38.3 36.0 - 46.0 % MCV 93.9 80.0 - 100.0 fL MCH 31.1 26.0 - 34.0 pg MCHC 33.2 30.5 - 36.0 g/dL RDW-CV 12.0 11.5 - 15.0 % Platelet Count 255 150 - 400 k/uL MPV 8.8 (L) 9.0 - 12.7 fL Neutrophils % 65.8 % Abs Neut 4.78 1.45 - 7.50 k/uL Lymphocytes % 24.4 % Abs Lymph 1.77 1.00 - 4.00 k/uL Monocytes % 6.5 % Abs Charlton 0.47 <0.87 k/uL Eosinophils % 2.6 % Abs Eosin 0.19 <0.46 k/uL Basophils % 0.4 % Abs Baso 0.03 <0.11 k/uL I (more content not included)... [facility] 04-29-2025 History of Present illness Narrative Images from the original note were not included. [facility] [address] [facility] Social Director Center / [address] [place], [place] [address] Virtual Visit (Video + Audio) Visit Date: April 29, 2025 Name: Mel Wall Date of : 1985 MRN/E #: [id number] This is a virtual encounter with both video- and audio-enabled technology initiated for an established patient, parent or guardian not originating from a related Evaluation & Management service provided within the previous 7 days nor leading to an Evaluation & Management service or procedure within the next 24 hours or soonest available appointment. The patient gave consent for this virtual visit. Chief Complaint: Patient presents with: Abdominal Pain: Post hernia surgery with remaining adhesions. Needs one more surgery as initial could not be completed. Subjective Mel Wall is a 39 year old female here with the following complaint(s): Has been having flare up from her stomach surgery. Needs to have second part of tummy tuck because uterus is stuck to stomach. Was in the ED this morning; was given Morphine Phenergan and Reglan. Next surgery is not scheduled yet. Sees surgeon the end of June. Dr Taylor just keeps telling her to wait it out that I will have flares. Pain will flare up due to the adhesions. Morphine did not help in the ED. Pain remains at 8/10. Second dose of Phenergan helped. Has been off of anxiety medication and would like to remain off if possible, but knows it is adding to her issues. The history is provided by the patient. Review of Systems As noted in HPI ALLERGIES Allergen Reactions Toradol [Ketorolac] Hives, Shortness of Breath Zofran [Ondansetron* Hives, Shortness of Breath Seasonal Allergies Itching, Other: See Comments Stuffy nose Current Outpatient Medications Medication Sig oxyCODONE-acetaminophen (PERCOCET) 5-325 mg tablet Take 1 tablet by mouth every 8 hours as needed for pain for up to 7 days. promethazine (PHENERGAN) 12.5 mg tablet Take 1 tablet by mouth every 8 hours as needed. lidocaine (LIDODERM) 5 % Apply 1 Patch as directed every 24 hours. REMOVE AFTER 12 HOURS. FLUoxetine (PROZAC) 20 mg capsule Take 1 capsule by mouth once daily. naloxone 4 mg/actuation nasal spray (NARCAN) Use 1 spray in one nostril as needed for overdose. May repeat every 2 to 3 min in alternating nostrils until medical assistance is available No current facility-administered medications for this visit. I have confirmed and edited as necessary the chief complaint, medications, past medical, family and social histories. Objective There were no vitals filed for this visit. All exam findings were noted using video- and audio-enabled technology. Physical Exam Vitals reviewed: no vitals due to virtual visit. Constitutional: Appearance: She is ill-appearing. HENT: Head: Normocephalic and atraumatic. Nose: Nose normal. Eyes: Conjunctiva/sclera: Conjunctivae normal. Cardiovascular: Comments: No apparent cyanosis or edema Pulmonary: Comments: No apparent respiratory distress. Speaking in full sentences. Musculoskeletal: Cervical back: Normal range of motion. Skin: Comments: No apparent rash, lesion or bruising noted to exposed skin. Psychiatric: Mood and Affect: Mood normal. Behavior: Behavior normal. Thought Content: Thought content normal. Judgment: Judgment normal. Results for orders placed or performed during the hospital encounter of 05/30/24 COMPREHENSIVE METABOLIC PANEL Result Value Ref Range Protein, Total 6.6 6.3 - 8.0 g/dL Albumin 4.3 3.9 - 4.9 g/dL Calcium, Total 9.2 8.5 - 10.2 mg/dL Bilirubin, Total 0.4 0.2 - 1.3 mg/dL Alkaline Phosphatase 34 34 - 123 U/L AST 9 (L) 13 - 35 U/L ALT 11 7 - 38 U/L Glucose 115 (H) 74 - 99 mg/dL BUN 10 7 - 21 mg/dL Creatinine 0.62 0.58 - 0.96 mg/dL Sodium 139 136 - 144 mmol/L Potassium 4.0 3.7 - 5.1 mmol/L Chloride 107 98 - 107 mmol/L CO2 24 22 - 30 mmol/L Anion Gap 8 8 - 15 mmol/L Estimated Glomerular Filtration Rate 117 >=60 mL/min/1.73m LIPASE Result Value Ref Range Lipase 33 16 - 61 U/L COMPLETE BLOOD COUNT AND DIFFERENTIAL Result Value Ref Range WBC 7.26 3.70 - 11.00 k/uL RBC 4.08 3.90 - 5.20 m/uL Hemoglobin 12.7 11.5 - 15.5 g/dL Hematocrit 38.3 36.0 - 46.0 % MCV 93.9 80.0 - 100.0 fL MCH 31.1 26.0 - 34.0 pg MCHC 33.2 30.5 - 36.0 g/dL RDW-CV 12.0 11.5 - 15.0 % Platelet Count 255 150 - 400 k/uL MPV 8.8 (L) 9.0 - 12.7 fL Neutrophils % 65.8 % Abs Neut 4.78 1.45 - 7.50 k/uL Lymphocytes % 24.4 % Abs Lymph 1.77 1.00 - 4.00 k/uL Monocytes % 6.5 % Abs Charlton 0.47 <0.87 k/uL Eosinophils % 2.6 % Abs Eosin 0.19 <0.46 k/uL Basophils % 0.4 % Abs Baso 0.03 <0.11 k/uL Immature Granulocytes % 0.3 % Abs Immature Gran <0.03 <0.10 k/uL NRBC Absolute nRBC Diff Type Auto SEPSIS LACTATE Result Value Ref Range Sepsis Lactate 1.7 <=2.0 mmol/L Assessment / Plan ASSESSMENT/PLAN: 1. Abdominal adhesions - ICD9: 568.0, ICD10: K66.0 (primary diagnosis) - will provide SHORT supply of pain medication to get her through to her appt and surgery with Dr Taylor; she reached out to his office and they will get her in to be seen in May. Pain med ONLY to be used during a flare and NOT daily. - OXYCODONE-ACETAMINOPHEN 5 MG-325 MG TABLET - PROMETHAZINE 12.5 MG TABLET 2. Nausea - ICD9: 787.02, ICD10: R11.0 - PROMETHAZINE 12.5 MG TABLET 3. Generalized abdominal pain - ICD9: 789.07, ICD10: R10.84 - See Dr Taylor as scheduled. - follow his instructions for gut rest during a flare. - OXYCODONE-ACETAMINOPHEN 5 MG-325 MG TABLET Discussed the above with the patient using shared decision-making. The patient is in agreement with the diagnostic and treatment plans. All questions were answered. Return if symptoms worsen or fail to improve. NED [facility] [phone] April 29, 2025 documented in this encounter [facility] 04-19-2025 Telephone encounter Note Left a VM for Pt to call the office to schedule an appt for surgery issues as stated [facility] 04-19-2025 Miscellaneous Notes Left a VM for Pt to call the office to schedule an appt for surgery issues as stated documented in this encounter [facility] 04-19-2025 Telephone encounter Note Is there anyone that can do a virtual with Mel today? Please reach out to her and help her get scheduled, or recommend she see someone in an urgent care / minute clinic today so that she does not have to go the whole weekend or longer with an infection. Thank you!! [facility] 04-19-2025 Miscellaneous Notes Is there anyone that can do a virtual with Mel today? Please reach out to her and help her get scheduled, or recommend she see someone in an urgent care / minute clinic today so that she does not have to go the whole weekend or longer with an infection. Thank you!! documented in this encounter [facility] 02-27-2025 Note HNO ID: [id number] Author: OTONIEL CASTELLON MD Service: ? Author Type: Physician Type: Progress Notes Filed: 02/28/2025 13:35 Note Text: Cancelled appt [facility] 02-22-2025 Hospital course Narrative Hospitalist Discharge Summary Mel Wall : 1985 Admit date: 02/20/2025 Discharge date: 02/22/2025 Admitting Physician: Ralph Rivera DO Primary Care Physician: No primary care provider on file. Visit Status: Observation Code Status: Full Code Acute, acute on chronic, unstable/uncontrolled chronic problems/diagnoses: Intractable acute on chronic abdominal pain, etiology unclear. Self resolved Multiple previous abdominal surgeries Stable chronic problems affecting care, new non-acute diagnoses: Medical History[1] Procedures: NA Hospital Course: Mel is a 39 y.o. female with past medical history below who presents with chief complaint listed above. Pt with significant abdominal surgical history including open recurrent incisional hernia repair w/ mesh, WAI, TAR, panniculectomy, removal of infarcted cecal epiploic appendage on 08/07/24. Had a ED visit on 09/[address] which showed subcutaneous seroma. Underwent IR guided drainage with sclerosis on 09/07/24 and had drain removed on 09/14/24 with no evidence of persistent fluid. Has had intermittent abdominal pain issues since then, multiple ED visits, seen in November and December in the ED, ultimately discharged at those times. Pt states she started having pain on . Thought that it was constipation or gas. Took a laxative suppository and pain continued to increase. States she had some left over pain meds from a previous surgery so she took one of them and pain continued to become more severe. She spoke to her surgeon who recommended going to the ED. She presented to [facility]. Labs unremarkable. Pt required IV pain meds. CT AP showing apparent prior cholecystectomy with upper abdominal surgical clips of duodenum with small bowel surgery left side with minimal dilated jejunal loops, postsurgical changes anterior abdominal wall with some adjacent bowel loops possibly due to adhesions with diastases recti, bilateral tubal ligation clips, renal calculi and small bilateral renal cysts. Due to her surgical history, multiple hospitalizations and intractable pain, decision was made to transfer to [facility] for pain control and surgical evaluation. Will admit for further evaluation and management. Surgery saw patient and recommended no acute surgical intervention. Pt still requiring IV pain meds and no obvious etiology of her pain. Palliative care consulted due to uncontrolled acute on chronic pain, multiple ED visits and surgical history but pain had largely resolved on 02/22 and pt tolerating a diet so consult cancelled. Pt instructed to take scheduled tylenol TID for the next 3-4 days, oxycodone only for severe pain as needed, stool softener daily and to focus on good hydration. Pt states she has an appointment with her PCP in a month, and states she is going to ask to go up on the dose of her fluoxetine, but asking for something until then to help with her anxiety. Offered hydroxyzine and pt states that has worked in the past so Rx given at discharge. Pt discharged home in stable and improved condition. See discharge diagnoses list above and medication adjustments below in med rec.The patient is discharged in improved and stable condition. Consults: IP CONSULT TO GENERAL SURGERY Discharge Instructions: Diet: Dietary Orders (From admission, onward) Start Ordered 02/21/251729 Adult diet Regular Diet effective now Question: Diet type Answer: Regular 02/21/251729 Activity: as tolerated Recommended Outpatient Tests: Disposition: Patient discharged in stable condition to Home. Greater than 50 minutes spent discharging the patient and coming up with patient discharge plan. Vitals: BP 115/76 (BP Location: Left arm, Patient Position: Sitting) Pulse 70 Temp 36.7 C (98.1 F) (Temporal) Resp 15 Ht 5' 5 (1.651 m) Wt 185 lb (83.9 kg) SpO2 99% BMI 30.79 kg/m Pulse Ox: SpO2 Av.5 % Min: 98 % Max: 99 % Supplemental O2: GENERAL: sitting up in bed comfortably, awake and alert HEENT: normocephalic, non-traumatic, MMM NECK: supple, trachea midline HEART: RRR, normal S1 and S2 LUNGS: good breath sounds bilaterally, no wheeze, no rhonchi, no rales ABD: soft, minimal tenderness, no rebound, no guarding, +BS MSK: no edema noted SKIN: warm, dry PSYCH: appropriate affect LABS: Recent Labs 02/20/25174702/22/25 0451 NA 139 138 K 4.0 4.1 CL 105 110* CO2 22 20* BUN 8 9 CREATININE 0.66 0.65 GLUCOSE 92 94 CALCIUM 8.9 8.4 Recent Labs 02/20/25174702/22/25 0451 WBC 7.6 6.3 RBC 4.29 4.10 HGB 13.4 12.7 HCT 39.7 37.9 MCV 92.5 92.4 MCH 31.2 31.0 MCHC 33.8 33.5 RDW 12.4 12.3 PLT 271 253 MPV 9.2 9.2 Discharge Medications: Medication List START taking these medications hydrOXYzine HCl 25 MG tablet Commonly known as: Atarax Take 1 tablet (25 mg) by mouth every 8 hours as needed for itching for up to 7 days. oxyCODONE 5 MG immediate release tablet Commonly known as: Roxicodone Take 1 tablet (5 mg) by mouth every 6 hours as needed for moderate pain (4-6) for up to 3 days. promethazine 12.5 MG tablet Commonly known as: Phenergan Take 1 tablet (12.5 mg) by mouth every 6 hours as needed for nausea or vomiting for up to 5 days. CONTINUE taking these medications acetaminophen 325 MG tablet Commonly known as: Tylenol FLUoxetine 20 MG capsule Commonly known as: PROzac ASK your doctor about these medications albuterol 108 (90 Base) MCG/ACT inhaler Where to Get Your Medications These medications were sent to [id number] - [facility] [address] [id number] [facility] [id number] hydrOXYzine HCl 25 MG tablet promethazine 12.5 MG tablet You can get these medications from any pharmacy Bring a paper prescription for each of these medications oxyCODONE 5 MG immediate release tablet Recommended Follow-up: Serafin Taylor DO [address] [facility] [id number] Follow up in 12 month(s) post op check Complexity of Follow up: [] Moderate Complexity: follow up within 7-14 calendar days (52701) [x] Severe Complexity: follow up within 7 calendar days (23831) Follow up Testing, Pending results or Referrals at Transitional Care Visit: [x] yes [] no Instructions to MA: Please call patient on day after discharge (must document patient contacted within 2 business days of discharge). Follow up questions for MA: 1. Did you get medications filled and taking them as instructed from discharge? 2. Are you following your discharge instructions from your hospital stay? 3. Please confirm patient is scheduled for a follow up appointment within the above time frame. 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 Covering SW following up with [facility] referral for: HCPOA SW attempted to meet w / Pt. Pt has been discharged. Call to Pt on cell phone listed in contact information. Pt reported she was inquiring upon HCPOA. SW explained document. Pt reported understanding and able to obtain paperwork and follow up independently. [facility] 02-22-2025 Note Formatting of this n ote might be different from the original. Covering SW following up with [facility] referral for: HCPOA SW attempted to meet w / Pt. Pt has been discharged. Call to Pt on cell phone listed in contact information. Pt reported she was inquiring upon HCPOA. WILBUR explained document. Pt reported understanding and able to obtain paperwork and follow up independently. [facility] 02-22-2025 Miscellaneous Notes Covering SW following up with [facility] referral for: HCPOA SW attempted to meet w / Pt. Pt has been discharged. Call to Pt on cell phone listed in contact information. Pt reported she was inquiring upon HCPOA. SW explained document. Pt reported understanding and able to obtain paperwork and follow up independently. Patient is discharged home with instructions to follow up with PCP as needed. Medications reviewed and 2 scripts sent to patient's pharmacy and paper script for oxycodone given to fill at patient's pharmacy. Patient verbalized understanding instructions and medications and had no questions at time of discharge. Patient tolerated regular diet. Problem: Knowledge Deficit Goal: Patient/family/caregiver demonstrates understanding of disease process, treatment plan, medications, and discharge instructions Outcome: Progressing Problem: Potential for Compromised Skin Integrity Goal: Skin Integrity is Maintained or Improved Outcome: Progressing Goal: Nutritional status is improving Outcome: Progressing Problem: Urinary Incontinence Goal: Perineal skin integrity is maintained or improved Outcome: Progressing Problem: Pain - Adult Goal: Verbalizes/displays adequate comfort level or baseline comfort level Outcome: Progressing Problem: Safety - Adult Goal: Free from fall injury Outcome: Progressing Problem: Discharge Planning Goal: Discharge to home or other facility with appropriate resources Outcome: Progressing Problem: Chronic Conditions and Co-morbidities Goal: Patient's chronic conditions and co-morbidity symptoms are monitored and maintained or improved Outcome: Progressing Care Management Progress Note Pt admitted for abdominal pain. Hs of multiple abdominal surgeries. Gen surgery consulted. No surgical intervention needed. Pt is from home with significant other. Discharge plan Is home. Pt has health insurance and prescription coverage. Pt has no PCP listed. will confirm with patient. Discharge is pending resolution of N/V and pain control. TCC will continue to follow for discharge needs. Length of Stay (Days): 0 GMLOS: No GMLOS Documented Problem: Pain - Adult Goal: Verbalizes/displays adequate comfort level or baseline comfort level Outcome: Progressing Problem: Safety - Adult Goal: Free from fall injury Outcome: Progressing Problem: Discharge Planning Goal: Discharge to home or other facility with appropriate resources Outcome: Progressing Problem: Chronic Conditions and Co-morbidities Goal: Patient's chronic conditions and co-morbidity symptoms are monitored and maintained or improved Outcome: Progressing documented in this encounter [facility] 02-22-2025 Note Formatting of this n ote might be different from the original. Patient is discharged home with instructions to follow up with PCP as needed. Medications reviewed and 2 scripts sent to patient's pharmacy and paper script for oxycodone given to fill at patient's pharmacy. Patient verbalized understanding instructions and medications and had no questions at time of discharge. Patient tolerated regular diet. [facility] 02-22-2025 Note Formatting of this n ote might be different from the original. Patient is discharged home with instructions to follow up with PCP as needed. Medications reviewed and 2 scripts sent to patient's pharmacy and paper script for oxycodone given to fill at patient's pharmacy. Patient verbalized understanding instructions and medications and had no questions at time of discharge. Patient tolerated regular diet. [facility] 02-22-2025 History of Present illness Narrative Nutrition rescreen completed. Chart reviewed. Patient to be monitored and followed by the diet plasma processing technician. Dietitian available upon request. NICKY Maldonado documented in this encounter [facility] 02-21-2025 Plan of care note Problem: Knowledge Deficit Goal: Patient/family/caregiver demonstrates understanding of disease process, treatment plan, medications, and discharge instructions Outcome: Progressing Problem: Potential for Compromised Skin Integrity Goal: Skin Integrity is Maintained or Improved Outcome: Progressing Goal: Nutritional status is improving Outcome: Progressing Problem: Urinary Incontinence Goal: Perineal skin integrity is maintained or improved Outcome: Progressing Problem: Pain - Adult Goal: Verbalizes/displays adequate comfort level or baseline comfort level Outcome: Progressing Problem: Safety - Adult Goal: Free from fall injury Outcome: Progressing Problem: Discharge Planning Goal: Discharge to home or other facility with appropriate resources Outcome: Progressing Problem: Chronic Conditions and Co-morbidities Goal: Patient's chronic conditions and co-morbidity symptoms are monitored and maintained or improved Outcome: Progressing [facility] 02-21-2025 Note Formatting of this n ote might be different from the original. Care Management Progress Note Pt admitted for abdominal pain. Hs of multiple abdominal surgeries. Gen surgery consulted. No surgical intervention needed. Pt is from home with significant other. Discharge plan Is home. Pt has health insurance and prescription coverage. Pt has no PCP listed. will confirm with patient. Discharge is pending resolution of N/V and pain control. TCC will continue to follow for discharge needs. Length of Stay (Days): 0 GMLOS: No GMLOS Documented T [facility] 02-21-2025 Note Formatting of this n ote might be different from the original. Care Management Progress Note Pt admitted for abdominal pain. Hs of multiple abdominal surgeries. Gen surgery consulted. No surgical intervention needed. Pt is from home with significant other. Discharge plan Is home. Pt has health insurance and prescription coverage. Pt has no PCP listed. will confirm with patient. Discharge is pending resolution of N/V and pain control. TCC will continue to follow for discharge needs. Length of Stay (Days): 0 GMLOS: No GMLOS Documented T [facility] 02-21-2025 History and physical note Attending History and Physical Admit Date: 02/20/2025 PCP: No primary care provider on file. CHIEF COMPLAINT: abdominal pain Reason for Admission: intractable abdominal pain History Obtained From: patient HISTORY OF PRESENT ILLNESS: Mel is a 39 y.o. female with past medical history below who presents with chief complaint listed above. Pt with significant abdominal surgical history including open recurrent incisional hernia repair w/ mesh, WAI, TAR, panniculectomy, removal of infarcted cecal epiploic appendage on 08/07/24. Had a ED visit on 09/[address] which showed subcutaneous seroma. Underwent IR guided drainage with sclerosis on 09/07/24 and had drain removed on 09/14/24 with no evidence of persistent fluid. Has had intermittent abdominal pain issues since then, multiple ED visits, seen in November and December in the ED, ultimately discharged at those times. Pt states she started having pain on . Thought that it was constipation or gas. Took a laxative suppository and pain continued to increase. States she had some left over pain meds from a previous surgery so she took one of them and pain continued to become more severe. She spoke to her surgeon who recommended going to the ED. She presented to [facility]. Labs unremarkable. Pt required IV pain meds. CT AP showing apparent prior cholecystectomy with upper abdominal surgical clips of duodenum with small bowel surgery left side with minimal dilated jejunal loops, postsurgical changes anterior abdominal wall with some adjacent bowel loops possibly due to adhesions with diastases recti, bilateral tubal ligation clips, renal calculi and small bilateral renal cysts. Due to her surgical history, multiple hospitalizations and intractable pain, decision was made to transfer to [facility] for pain control and surgical evaluation. Will admit for further evaluation and management. Surgery saw patient and recommended no acute surgical intervention. Pt still requiring IV pain meds and no obvious etiology of her pain. Palliative care consulted due to uncontrolled acute on chronic pain, multiple ED visits and surgical history. Past Medical History: Medical History[1] Past Surgical History: Surgical History[2] Social History: Social History Socioeconomic History Marital status: Spouse name: Not on file Number of children: Not on file Years of education: Not on file Highest education level: Not on file Occupational History Not on file Tobacco Use Smoking status: Former Types: Cigarettes Smokeless tobacco: Never Substance and Sexual Activity Alcohol use: Not Currently Drug use: Yes Frequency: 2.0 times per week Types: Marijuana Comment: edibles Sexual activity: Not Currently Other Topics Concern Not on file Social History Narrative Not on file Social Drivers of Health Financial Resource Strain: High Risk (04/24/2024) Overall Financial Resource Strain (CARDIA) Difficulty of Paying Living Expenses: Very hard Food Insecurity: Patient Declined (04/26/2024) Hunger Vital Sign Worried About Running Out of Food in the Last Year: Patient declined Ran Out of Food in the Last Year: Patient declined Recent Concern: Food Insecurity - Food Insecurity Present (04/24/2024) Hunger Vital Sign Worried About Running Out of Food in the Last Year: Often true Ran Out of Food in the Last Year: Often true Transportation Needs: Patient Declined (04/26/2024) PRAPARE - Transportation Lack of Transportation (Medical): Patient declined Lack of Transportation (Non-Medical): Patient declined Recent Concern: Transportation Needs - Unmet Transportation Needs (04/24/2024) PRAPARE - Transportation Lack of Transportation (Medical): Yes Lack of Transportation (Non-Medical): Yes Physical Activity: Sufficiently Active (04/24/2024) Exercise Vital Sign Days of Exercise per Week: 7 days Minutes of Exercise per Session: 60 min Stress: Stress Concern Present (04/24/2024) [employer] [place] [employer] - Occupational Stress Questionnaire Feeling of Stress : Very much Social Connections: Moderately Integrated (04/24/2024) Social Connection and Isolation Panel [NHANES] Frequency of Communication with Friends and Family: Twice a week Frequency of Social Gatherings with Friends and Family: Once a week Attends [employer] Services: More than 4 times per year Active Member of Clubs or Organizations: No Attends Club or Organization Meetings: More than 4 times per year Marital Status: Intimate Partner Violence: Not At Risk (02/21/2025) Humiliation, Afraid, Rape, and Kick questionnaire Fear of Current or Ex-Partner: No Emotionally Abused: No Physically Abused: No Sexually Abused: No Housing Stability: Unknown (04/26/2024) Housing Stability Vital Sign Unable to Pay for Housing in the Last Year: Patient declined Number of Times Moved in the Last Year: 1 Homeless in the Last Year: No Recent Concern: Housing Stability - High Risk (04/24/2024) Housing Stability Vital Sign Unable to Pay for Housing in the Last Year: Yes Number of Times Moved in the Last Year: 1 Homeless in the Last Year: No Family History: Family History[3] Medications Prior to Admission: Current Medications[4] Medications Reconciliation: Medication were reviewed and verified as accurate with patient. Allergies: Allergies[5] REVIEW OF SYSTEMS: 10 point ROS obtained, as per HPI, otherwise NEG Vitals: BP 128/72 Pulse 59 Temp 36.3 C (97.4 F) (Temporal) Resp 20 Ht 5' 5 (1.651 m) Wt 185 lb (83.9 kg) SpO2 100% BMI 30.79 kg/m BMI Classification: Obese (BMI 30.0-39.9) Pulse Ox: SpO2 Av.5 % Min: 99 % Max: 100 % Supplemental O2: PHYSICAL EXAM: GENERAL: Lying in bed comfortably, awake and alert HEENT: normocephalic, non-traumatic, MMM NECK: supple, trachea midline HEART: RRR, normal S1 and S2 LUNGS: good breath sounds bilaterally, no wheeze, no rhonchi, no rales ABD: soft, TTP LLQ, generalized tenderness lower abdomen, no rebound, no guarding, +BS MSK: no edema noted SKIN: warm, dry NEURO: no focal deficits PSYCH: appropriate affect DATA: CBC: Recent Labs 02/20/25 1748 WBC 7.6 RBC 4.29 HGB 13.4 HCT 39.7 MCV 92.5 RDW 12.4 PLT 271 BMP: Recent Labs 02/20/25 1748 NA 139 K 4.0 CL 105 CO2 22 BUN 8 CREATININE 0.66 GLUCOSE 92 CALCIUM 8.9 ANIONGAP 12 LIVER PROFILE: Recent Labs 02/20/25 1748 AST 12 ALT 8 BILITOT 0.4 ALKPHOS 38* PROT 7.2 PT/INR: No results for input(s): PROTIME, INR in the last 72 hours. CARDIAC ENZYMES: No results for input(s): TROPONINI in the last 72 hours. Procalcitonin: No results found for: PROCAL Urine Culture: No results found for this or any previous visit. COVID-19 PCR: No results for input(s): COVID19 in the last 72 hours. I reviewed: [x] laboratory results [x] radiographic results At the time of today's encounter. Pt was advised of the results. Data: Assessment Discussed management with the ED provider and agree with hospitalization. Acute, acute on chronic, unstable/uncontrolled chronic problems/diagnoses: Intractable acute on chronic abdominal pain Multiple previous abdominal surgeries Stable chronic problems affecting care, new non-acute diagnoses: Plan As a result of the above findings & factors, the following mgmt was pursued: - cont meds as ordered - Surgery, pall care recs - multiple ED visits - changed compazine to phenergan. Compazine not working for nausea. Allergy to zofran - am labs, replace lytes prn - PT/OT/CM/SW - delirium precautions: increase activity and limit nighttime disturbances - DVT prophylaxis: encourage ambulation Advance Directive: Full Code Anticipated Discharge - Date - 1-2 days - Location - Home - Pending the following - adequate pain control Total time spent (which include face to face and non face to face encounters) : 75 minutes. Extended Emergency Contact Information Primary Emergency Contact: nilton loredo Address: [address] [place] [address] of [place] Relation: Significant Other [employer] Mel Wall : 1985 Primary Care Physician: No primary care provider on file. The patient and/or family/surrogate voluntarily agreed to participate in ACP services. Patient s cognitive capacity: AAOx3 Code Status: [X] [FULL CODE - Continue all advanced life support: CPR,intubation,invasive procedures] [_] [DNR-CCA - DO NOT do CPR, intubation] [_] [DNR-GAS APPLIANCE REPAIRER - Comfort care only] [_] DNR form [was/was not] signed Total time spent: 5 minutes were spent discussing the patient's resuscitation status, advance care planning, and end of life care, with patient and/or family/surrogate. 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 Partial obstruction of small intestine (HCC) 06/13/2024 [2] Past Surgical History: Procedure Laterality Date APPENDECTOMY BILIOPANCREATIC DIVERSION 10/23/2008 Sherie @ [facility]; janel-en-y duodenojejunostomy for bile reflux CHOLECYSTECTOMY 02/2007 lap COLONOSCOPY N/A 11/29/2023 [facility]; repeat in 11/2033 EXPLORATORY LAPAROTOMY 06/10/2019 Veronica @ [facility]; ex lap, WAI INCISION AND DRAINAGE OF WOUND 08/09/2013 [facility]; I&D of surgical incision of LLQ INCISIONAL HERNIA REPAIR 10/20/2017 [facility]; open primary repair INCISIONAL HERNIA REPAIR 07/12/2018 [facility]; open w/ mesh INCISIONAL HERNIA REPAIR 09/26/2018 [facility]; lap w/ mesh INCISIONAL HERNIA REPAIR 03/11/2020 [facility]; repair w/ mesh excision, mesh replacement ([facility] Mesh w/ Echo), WAI INCISIONAL HERNIA REPAIR 07/19/2015 [facility]; open repair w/ mesh INCISIONAL HERNIA REPAIR 08/07/2024 [facility]; an open recurrent repair w/ mesh, WAI, TAR, removal of infarcted cecal epiploic appendage PANNICULECTOMY (HISTORICAL) 08/07/2024 [facility] SOFT TISSUE MASS EXCISION 08/02/2013 [facility]; STM excision of LLQ TONSILLECTOMY [3] Family History Problem Relation Name Age of Onset Hypertension Father Diabetes Father [4] Current Facility-Administered Medications: acetaminophen (Tylenol) tablet 650 mg, 650 mg, Oral, q6h PRN OR acetaminophen (Tylenol) suppository 650 mg, 650 mg, Rectal, q6h PRN, Dilip Yen MD FLUoxetine (PROzac) capsule 20 mg, 20 mg, Oral, Daily, Dilip Yen MD, 20 mg at 02/21/25 0807 HYDROmorphone (Dilaudid) injection 0.5 mg, 0.5 mg, IntraVENous, q6h PRN, Kostas Cunha MD, 0.5 mg at 02/21/25 1253 HYDROmorphone (Dilaudid) injection 0.5 mg, 0.5 mg, IntraVENous, q6h PRN, Dilip Yen MD, 0.5 mg at 02/21/25 0645 melatonin tablet 3 mg, 3 mg, Oral, Nightly PRN, Dilip Yen MD naloxone (Narcan) injection 0.4 mg, 0.4 mg, IntraVENous, PRN, Dilip Yen MD oxyCODONE (Roxicodone) immediate release tablet 5 mg, 5 mg, Oral, q6h PRN OR oxyCODONE (Roxicodone) immediate release tablet 10 mg, 10 mg, Oral, q6h PRN, Dilip Yen MD, 10 mg at 02/21/25 1403 polyethylene glycol (PEG) 3350 (Miralax) packet 17 g, 17 g, Oral, Daily PRN, Dilip Yen MD polyethylene glycol (PEG) 3350 (Miralax) packet 17 g, 17 g, Oral, Daily, Yakelin Juan Whitehead MD, 17 g at 02/21/25 0807 prochlorperazine (Compazine) injection 5 mg, 5 mg, IntraVENous, q6h PRN, Dilip Yen MD, 5 mg at 02/21/25 0809 [5] Allergies Allergen Reactions Ketorolac Hives and Shortness of breath Other reaction(s): Hives Ondansetron Shortness of breath and Hives Other reaction(s): Hives, Respiratory distress Seasonal Itching and Other Stuffy nose [facility] 02-21-2025 History and physical note Attending History and Physical Admit Date: 02/20/2025 PCP: No primary care provider on file. CHIEF COMPLAINT: abdominal pain Reason for Admission: intractable abdominal pain History Obtained From: patient HISTORY OF PRESENT ILLNESS: Mel is a 39 y.o. female with past medical history below who presents with chief complaint listed above. Pt with significant abdominal surgical history including open recurrent incisional hernia repair w/ mesh, WAI, TAR, panniculectomy, removal of infarcted cecal epiploic appendage on 08/07/24. Had a ED visit on 09/[address] which showed subcutaneous seroma. Underwent IR guided drainage with sclerosis on 09/07/24 and had drain removed on 09/14/24 with no evidence of persistent fluid. Has had intermittent abdominal pain issues since then, multiple ED visits, seen in November and December in the ED, ultimately discharged at those times. Pt states she started having pain on . Thought that it was constipation or gas. Took a laxative suppository and pain continued to increase. States she had some left over pain meds from a previous surgery so she took one of them and pain continued to become more severe. She spoke to her surgeon who recommended going to the ED. She presented to [facility]. Labs unremarkable. Pt required IV pain meds. CT AP showing apparent prior cholecystectomy with upper abdominal surgical clips of duodenum with small bowel surgery left side with minimal dilated jejunal loops, postsurgical changes anterior abdominal wall with some adjacent bowel loops possibly due to adhesions with diastases recti, bilateral tubal ligation clips, renal calculi and small bilateral renal cysts. Due to her surgical history, multiple hospitalizations and intractable pain, decision was made to transfer to [facility] for pain control and surgical evaluation. Will admit for further evaluation and management. Surgery saw patient and recommended no acute surgical intervention. Pt still requiring IV pain meds and no obvious etiology of her pain. Palliative care consulted due to uncontrolled acute on chronic pain, multiple ED visits and surgical history. Past Medical History: Medical History[1] Past Surgical History: Surgical History[2] Social History: Social History Socioeconomic History Marital status: Spouse name: Not on file Number of children: Not on file Years of education: Not on file Highest education level: Not on file Occupational History Not on file Tobacco Use Smoking status: Former Types: Cigarettes Smokeless tobacco: Never Substance and Sexual Activity Alcohol use: Not Currently Drug use: Yes Frequency: 2.0 times per week Types: Marijuana Comment: edibles Sexual activity: Not Currently Other Topics Concern Not on file Social History Narrative Not on file Social Drivers of Health Financial Resource Strain: High Risk (04/24/2024) Overall Financial Resource Strain (CARDIA) Difficulty of Paying Living Expenses: Very hard Food Insecurity: Patient Declined (04/26/2024) Hunger Vital Sign Worried About Running Out of Food in the Last Year: Patient declined Ran Out of Food in the Last Year: Patient declined Recent Concern: Food Insecurity - Food Insecurity Present (04/24/2024) Hunger Vital Sign Worried About Running Out of Food in the Last Year: Often true Ran Out of Food in the Last Year: Often true Transportation Needs: Patient Declined (04/26/2024) PRAPARE - Transportation Lack of Transportation (Medical): Patient declined Lack of Transportation (Non-Medical): Patient declined Recent Concern: Transportation Needs - Unmet Transportation Needs (04/24/2024) PRAPARE - Transportation Lack of Transportation (Medical): Yes Lack of Transportation (Non-Medical): Yes Physical Activity: Sufficiently Active (04/24/2024) Exercise Vital Sign Days of Exercise per Week: 7 days Minutes of Exercise per Session: 60 min Stress: Stress Concern Present (04/24/2024) [employer] [place] [employer] - Occupational Stress Questionnaire Feeling of Stress : Very much Social Connections: Moderately Integrated (04/24/2024) Social Connection and Isolation Panel [NHANES] Frequency of Communication with Friends and Family: Twice a week Frequency of Social Gatherings with Friends and Family: Once a week Attends [employer] Services: More than 4 times per year Active Member of Clubs or Organizations: No Attends Club or Organization Meetings: More than 4 times per year Marital Status: Intimate Partner Violence: Not At Risk (02/21/2025) Humiliation, Afraid, Rape, and Kick questionnaire Fear of Current or Ex-Partner: No Emotionally Abused: No Physically Abused: No Sexually Abused: No Housing Stability: Unknown (04/26/2024) Housing Stability Vital Sign Unable to Pay for Housing in the Last Year: Patient declined Number of Times Moved in the Last Year: 1 Homeless in the Last Year: No Recent Concern: Housing Stability - High Risk (04/24/2024) Housing Stability Vital Sign Unable to Pay for Housing in the Last Year: Yes Number of Times Moved in the Last Year: 1 Homeless in the Last Year: No Family History: Family History[3] Medications Prior to Admission: Current Medications[4] Medications Reconciliation: Medication were reviewed and verified as accurate with patient. Allergies: Allergies[5] REVIEW OF SYSTEMS: 10 point ROS obtained, as per HPI, otherwise NEG Vitals: BP 128/72 Pulse 59 Temp 36.3 C (97.4 F) (Temporal) Resp 20 Ht 5' 5 (1.651 m) Wt 185 lb (83.9 kg) SpO2 100% BMI 30.79 kg/m BMI Classification: Obese (BMI 30.0-39.9) Pulse Ox: SpO2 Av.5 % Min: 99 % Max: 100 % Supplemental O2: PHYSICAL EXAM: GENERAL: Lying in bed comfortably, awake and alert HEENT: normocephalic, non-traumatic, MMM NECK: supple, trachea midline HEART: RRR, normal S1 and S2 LUNGS: good breath sounds bilaterally, no wheeze, no rhonchi, no rales ABD: soft, TTP LLQ, generalized tenderness lower abdomen, no rebound, no guarding, +BS MSK: no edema noted SKIN: warm, dry NEURO: no focal deficits PSYCH: appropriate affect DATA: CBC: Recent Labs 02/20/25 1748 WBC 7.6 RBC 4.29 HGB 13.4 HCT 39.7 MCV 92.5 RDW 12.4 PLT 271 BMP: Recent Labs 02/20/25 1748 NA 139 K 4.0 CL 105 CO2 22 BUN 8 CREATININE 0.66 GLUCOSE 92 CALCIUM 8.9 ANIONGAP 12 LIVER PROFILE: Recent Labs 02/20/25 1748 AST 12 ALT 8 BILITOT 0.4 ALKPHOS 38* PROT 7.2 PT/INR: No results for input(s): PROTIME, INR in the last 72 hours. CARDIAC ENZYMES: No results for input(s): TROPONINI in the last 72 hours. Procalcitonin: No results found for: PROCAL Urine Culture: No results found for this or any previous visit. COVID-19 PCR: No results for input(s): COVID19 in the last 72 hours. I reviewed: [x] laboratory results [x] radiographic results At the time of today's encounter. Pt was advised of the results. Data: Assessment Discussed management with the ED provider and agree with hospitalization. Acute, acute on chronic, unstable/uncontrolled chronic problems/diagnoses: Intractable acute on chronic abdominal pain Multiple previous abdominal surgeries Stable chronic problems affecting care, new non-acute diagnoses: Plan As a result of the above findings & factors, the following mgmt was pursued: - cont meds as ordered - Surgery, pall care recs - multiple ED visits - changed compazine to phenergan. Compazine not working for nausea. Allergy to zofran - am labs, replace lytes prn - PT/OT/CM/SW - delirium precautions: increase activity and limit nighttime disturbances - DVT prophylaxis: encourage ambulation Advance Directive: Full Code Anticipated Discharge - Date - 1-2 days - Location - Home - Pending the following - adequate pain control Total time spent (which include face to face and non face to face encounters) : 75 minutes. Extended Emergency Contact Information Primary Emergency Contact: nilton loredo Address: [address] [place] [address] [facility] of [place] Relation: Significant Other [employer] Mel Duke : 1985 Primary Care Physician: No primary care provider on file. The patient and/or family/surrogate voluntarily agreed to participate in ACP services. Patient s cognitive capacity: AAOx3 Code Status: [X] [FULL CODE - Continue all advanced life support: CPR,intubation,invasive procedures] [_] [DNR-CCA - DO NOT do CPR, intubation] [_] [DNR-GAS APPLIANCE REPAIRER - Comfort care only] [_] DNR form [was/was not] signed Total time spent: 5 minutes were spent discussing the patient's resuscitation status, advance care planning, and end of life care, with patient and/or family/surrogate. 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 Partial obstruction of small intestine (HCC) 06/13/2024 [2] Past Surgical History: Procedure Laterality Date APPENDECTOMY BILIOPANCREATIC DIVERSION 10/23/2008 Sherie @ [facility]; janel-en-y duodenojejunostomy for bile reflux CHOLECYSTECTOMY 02/2007 lap COLONOSCOPY N/A 11/29/2023 [facility]; repeat in 11/2033 EXPLORATORY LAPAROTOMY 06/10/2019 Veronica @ [facility]; ex lap, WAI INCISION AND DRAINAGE OF WOUND 08/09/2013 [facility]; I&D of surgical incision of LLQ INCISIONAL HERNIA REPAIR 10/20/2017 [facility]; open primary repair INCISIONAL HERNIA REPAIR 07/12/2018 [facility]; open w/ mesh INCISIONAL HERNIA REPAIR 09/26/2018 [facility]; lap w/ mesh INCISIONAL HERNIA REPAIR 03/11/2020 [facility]; repair w/ mesh excision, mesh replacement ([facility] Mesh w/ Echo), WAI INCISIONAL HERNIA REPAIR 07/19/2015 [facility]; open repair w/ mesh INCISIONAL HERNIA REPAIR 08/07/2024 [facility]; an open recurrent repair w/ mesh, WAI, TAR, removal of infarcted cecal epiploic appendage PANNICULECTOMY (HISTORICAL) 08/07/2024 [facility] SOFT TISSUE MASS EXCISION 08/02/2013 [facility]; STM excision of LLQ TONSILLECTOMY [3] Family History Problem Relation Name Age of Onset Hypertension Father Diabetes Father [4] Current Facility-Administered Medications: acetaminophen (Tylenol) tablet 650 mg, 650 mg, Oral, q6h PRN OR acetaminophen (Tylenol) suppository 650 mg, 650 mg, Rectal, q6h PRN, Dilip Yen MD FLUoxetine (PROzac) capsule 20 mg, 20 mg, Oral, Daily, Dilip Yen MD, 20 mg at 02/21/25 0807 HYDROmorphone (Dilaudid) injection 0.5 mg, 0.5 mg, IntraVENous, q6h PRN, Kostas Cunha MD, 0.5 mg at 02/21/25 1253 HYDROmorphone (Dilaudid) injection 0.5 mg, 0.5 mg, IntraVENous, q6h PRN, Dilip Yen MD, 0.5 mg at 02/21/25 0645 melatonin tablet 3 mg, 3 mg, Oral, Nightly PRN, Dilip Yen MD naloxone (Narcan) injection 0.4 mg, 0.4 mg, IntraVENous, PRN, Dilip Yen MD oxyCODONE (Roxicodone) immediate release tablet 5 mg, 5 mg, Oral, q6h PRN OR oxyCODONE (Roxicodone) immediate release tablet 10 mg, 10 mg, Oral, q6h PRN, Dilip Yen MD, 10 mg at 02/21/25 1403 polyethylene glycol (PEG) 3350 (Miralax) packet 17 g, 17 g, Oral, Daily PRN, Dilip Yen MD polyethylene glycol (PEG) 3350 (Miralax) packet 17 g, 17 g, Oral, Daily, Yakelin Whitehead MD, 17 g at 02/21/25 0807 prochlorperazine (Compazine) injection 5 mg, 5 mg, IntraVENous, q6h PRN, Dilip Yen MD, 5 mg at 02/21/25 0809 [5] Allergies Allergen Reactions Ketorolac Hives and Shortness of breath Other reaction(s): Hives Ondansetron Shortness of breath and Hives Other reaction(s): Hives, Respiratory distress Seasonal Itching and Other Stuffy nose documented in this encounter [facility] 02-21-2025 Note [facility] Plan of care note Problem: Pain - Adult Goal: Verbalizes/displays adequate comfort level or baseline comfort level Outcome: Progressing Problem: Safety - Adult Goal: Free from fall injury Outcome: Progressing Problem: Discharge Planning Goal: Discharge to home or other facility with appropriate resources Outcome: Progressing Problem: Chronic Conditions and Co-morbidities Goal: Patient's chronic conditions and co-morbidity symptoms are monitored and maintained or improved Outcome: Progressing [facility] 02-21-2025 Consult note Associated Order (s): IP CONSULT TO GENERAL SURGERY Images from the original note were not included. Department of General Surgery Surgical Service - Surg 4 Resident Consult Note 02/21/2025 CHIEF COMPLAINT: Chief Complaint Patient presents with Hernia Lower abd pain , hx of hernia repair , pt states she moved wrong and felt a tug or a pop Reason for Consult: HISTORY OF PRESENT ILLNESS: Mel Wall is a 39 y.o. female with significant past medical history of anxiety, depression, bipolar disorder, obesity s/p biliopancreatic diversion, and incision hernia s/p TAR 08/07/24 who presents with abdominal. Surgery was consulted for evaluation. Patient states she had had intermittent pain and the inferior aspect of her midline incision but it has become persistent over the past several days. She endorses some intermittent nausea and vomiting. Her last BM was Tuesday, she normally goes every other day. Denies any fevers, chills, shortness of breath, or chest pain. On evaluation patient was AFVSS . Labs reviewed significant for: WBC 7.6, Hgb 13.4. Imaging demonstrated expected post surgical changes. Medical History[1] Surgical History[2] Medications Prior to Admission: Medications Ordered Prior to Encounter[3] Allergies: Ketorolac, Ondansetron, and Seasonal Social History[4] Family History[5] REVIEW OF SYSTEMS: Review of Systems Constitutional: Negative for chills and fever. HENT: Negative for sore throat and trouble swallowing. Respiratory: Negative for shortness of breath and wheezing. Cardiovascular: Negative for chest pain and palpitations. Gastrointestinal: Positive for abdominal pain, nausea and vomiting. Genitourinary: Negative for difficulty urinating and dysuria. Musculoskeletal: Negative for arthralgias and myalgias. Skin: Negative for color change and wound. Neurological: Negative for dizziness and weakness. Psychiatric/Behavioral: Negative for confusion and hallucinations. PHYSICAL EXAM: Vitals: 02/21/25 0535 BP: 128/90 Pulse: 68 Resp: 20 Temp: 36.8 C (98.2 F) SpO2: 99% No intake/output data recorded. CONSTITUTIONAL: awake, alert, cooperative, no apparent distress NECK: Supple, symmetrical, trachea midline, no adenopathy LUNGS: No increased work of breathing, good air exchange CARDIOVASCULAR: Regular rate and rhythm ABDOMEN: Soft, non-distended, no rebound, no guarding, no masses palpated, focally tender to inferior aspect of midline incision, palpable nodule consistent with suture granuloma. No overlying skin changes. Incisions well-healed and approximated. CHEST: no masses palpated, no axillary or supraclavicular adenopathy GENITAL/URINARY: Not examined MUSCULOSKELETAL: There is no redness, warmth, or swelling of the joints. Full range of motion noted. NEUROLOGIC: Awake, alert, oriented to name, place and time. SKIN: normal skin color, texture, no redness, warmth, or swelling DATA: CBC: Lab Results Component Value Date WBC 7.6 02/20/2025 RBC 4.29 02/20/2025 HGB 13.4 02/20/2025 HCT 39.7 02/20/2025 MCV 92.5 02/20/2025 MCH 31.2 02/20/2025 MCHC 33.8 02/20/2025 RDW 12.4 02/20/2025 PLT 271 02/20/2025 MPV 9.2 02/20/2025 BMP: Lab Results Component Value Date NA 139 02/20/2025 K 4.0 02/20/2025 CL 105 02/20/2025 CO2 22 02/20/2025 BUN 8 02/20/2025 CREATININE 0.66 02/20/2025 CALCIUM 8.9 02/20/2025 GLUCOSE 92 02/20/2025 Hepatic Function Panel: Lab Results Component Value Date ALKPHOS 38 (L) 02/20/2025 ALT 8 02/20/2025 AST 12 02/20/2025 PROT 7.2 02/20/2025 BILITOT 0.4 02/20/2025 PT/INR: No results found for: PROTIME, INR Troponin: No results found for: TROPONINI LIPASE: Lab Results Component Value Date LIPASE 23 02/20/2025 IMAGING: ECG 12 lead EKG shows NSR, normal axis, normal LA QRS and QTC intervals, no STEMI, no SVT, no LVH. Previous EKG showed ectopic atrial rhythm. Electronically Signed On 02-21-2025 02:40:40 EDT by Contreras Castillo ASSESSMENT AND PLAN: This is a 39 y.o. female with likely suture granuloma at inferior aspect of incision - No acute surgical intervention - PO challenge - Pain and nausea control PRN - Rest of care per primary - Surgery will sign off at this time, please page with questions Patient discussed with attending, Dr. Taylor. Yakelin Whitehead MD General Surgery PGY-2 02/21/25 7:03 AM This note may have been dictated using [employer] / [employer] Practice Edition 2.6 and/or [employer] Voice Recognition Feature. The document was proofread; however, unrecognized voice recognition wood stock blank handler errors may be present. ATTESTATION The patient was seen and examined. I have reviewed the patients presentation, histories, imaging and serology studies. I agree with the above assessment and plan. Ab: Soft, Non-distended, non-tender Patient states that she crossed her legs at work and felt a pop in her lower abdomen. She stated she felt pain and was concerned that she had a recurrent hernia. Currently, she denies nausea or vomiting and is tolerating liquids. She denies fevers, chills, sweats, shortness of breath or chest pain. Vital signs are stable. Patient does not have a leukocytosis. CT scan was personally reviewed and interpreted. It appears that the seroma which was seen on previous CT scans have resolved. Though she has some regions that appear to be consistent with diastases, there is no evidence of recurrent hernia at this time. I suspect some of the popping may be related to absorbable sutures given the timing of her surgery. I do not recommend any acute surgical intervention at this time. Okay to advance diet as tolerated. I recommend nonopioid medications for pain relief. Patient will follow-up with me 1 year from surgery. Thank you for allowing me to participate in the care of this patient. Please call with any questions, concerns or if the patient status changes. --------- I personally performed the evaluation and management of Mel Wall in the development of a treatment plan for this patient. I personally interviewed the patient and performed an individual physical examination. In addition, I discussed the patient's condition and treatment options with them. I have also reviewed and agree with the past medical, family and social history unless otherwise noted. All of the patient's questions were answered. I personally spent 55 minutes of time between the face to face encounter, physical exam, reviewing the medical history, coordinating the patient's care, counseling/educating the patient, ordering prescriptions/medications/tests/proc edures, interpreting results and documenting clinical information in the patient's electronic health record on the day of the encounter. 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 Partial obstruction of small intestine (HCC) 06/13/2024 [2] Past Surgical History: Procedure Laterality Date APPENDECTOMY BILIOPANCREATIC DIVERSION 10/23/2008 Sherie @ [place]; janel-en-y duodenojejunostomy for bile reflux CHOLECYSTECTOMY 02/2007 lap COLONOSCOPY N/A 11/29/2023 [facility]; repeat in 11/2033 EXPLORATORY LAPAROTOMY 06/10/2019 Veronica @ [facility]; ex lap, WAI INCISION AND DRAINAGE OF WOUND 08/09/2013 [facility]; I&D of surgical incision of LLQ INCISIONAL HERNIA REPAIR 10/20/2017 [place]; open primary repair INCISIONAL HERNIA REPAIR 07/12/2018 [facility]; open w/ mesh INCISIONAL HERNIA REPAIR 09/26/2018 [place]; lap w/ mesh INCISIONAL HERNIA REPAIR 03/11/2020 [facility]; repair w/ mesh excision, mesh replacement ([facility] Mesh w/ Echo), WIA INCISIONAL HERNIA REPAIR 07/19/2015 [place]; open repair w/ mesh INCISIONAL HERNIA REPAIR 08/07/2024 [place]; an open recurrent repair w/ mesh, WAI, TAR, removal of infarcted cecal epiploic appendage PANNICULECTOMY (HISTORICAL) 08/07/2024 [place] SOFT TISSUE MASS EXCISION 08/02/2013 [place]; STM excision of LLQ TONSILLECTOMY [3] Current Facility-Administered Medications Medication Dose Route Frequency Provider Last Rate Last Admin acetaminophen (Tylenol) tablet 650 mg 650 mg Oral q6h PRN Dilip Yen MD Or acetaminophen (Tylenol) suppository 650 mg 650 mg Rectal q6h PRN Dilip Yen MD FLUoxetine (PROzac) capsule 20 mg 20 mg Oral Daily Dilip Yen MD HYDROmorphone (Dilaudid) injection 0.5 mg 0.5 mg IntraVENous q6h PRN Kostas Cunha MD 0.5 mg at 02/21/25 0156 HYDROmorphone (Dilaudid) injection 0.5 mg 0.5 mg IntraVENous q6h PRN Dilip Yen MD 0.5 mg at 02/21/25 0645 melatonin tablet 3 mg 3 mg Oral Nightly PRN Dilip Yen MD naloxone (Narcan) injection 0.4 mg 0.4 mg IntraVENous PRN Dilip Yen MD oxyCODONE (Roxicodone) immediate release tablet 5 mg 5 mg Oral q6h PRN Dilip Yen MD Or oxyCODONE (Roxicodone) immediate release tablet 10 mg 10 mg Oral q6h PRN Dilip eYn MD polyethylene glycol (PEG) 3350 (Miralax) packet 17 g 17 g Oral Daily PRN Dilip eYn MD polyethylene glycol (PEG) 3350 (Miralax) packet 17 g 17 g Oral Daily Yakelin Whitehead MD prochlorperazine (Compazine) injection 5 mg 5 mg IntraVENous q6h PRN Dilip Yen MD [4] Social History Socioeconomic History Marital status: Tobacco Use Smoking status: Former Types: Cigarettes Smokeless tobacco: Never Substance and Sexual Activity Alcohol use: Not Currently Drug use: Yes Frequency: 2.0 times per week Types: Marijuana Comment: edibles Sexual activity: Not Currently Social Drivers of Health Financial Resource Strain: High Risk (04/24/2024) Overall Financial Resource Strain (CARDIA) Difficulty of Paying Living Expenses: Very hard Food Insecurity: Patient Declined (04/26/2024) Hunger Vital Sign Worried About Running Out of Food in the Last Year: Patient declined Ran Out of Food in the Last Year: Patient declined Recent Concern: Food Insecurity - Food Insecurity Present (04/24/2024) Hunger Vital Sign Worried About Running Out of Food in the Last Year: Often true Ran Out of Food in the Last Year: Often true Transportation Needs: Patient Declined (04/26/2024) PRAPARE - Transportation Lack of Transportation (Medical): Patient declined Lack of Transportation (Non-Medical): Patient declined Recent Concern: Transportation Needs - Unmet Transportation Needs (04/24/2024) PRAPARE - Transportation Lack of Transportation (Medical): Yes Lack of Transportation (Non-Medical): Yes Physical Activity: Sufficiently Active (04/24/2024) Exercise Vital Sign Days of Exercise per Week: 7 days Minutes of Exercise per Session: 60 min Stress: Stress Concern Present (04/24/2024) [employer] [place] [employer] - Occupational Stress Questionnaire Feeling of Stress : Very much Social Connections: Moderately Integrated (04/24/2024) Social Connection and Isolation Panel [NHANES] Frequency of Communication with Friends and Family: Twice a week Frequency of Social Gatherings with Friends and Family: Once a week Attends Adventism Services: More than 4 times per year Active Member of Clubs or Organizations: No Attends Club or Organization Meetings: More than 4 times per year Marital Status: Intimate Partner Violence: Not At Risk (02/21/2025) Humiliation, Afraid, Rape, and Kick questionnaire Fear of Current or Ex-Partner: No Emotionally Abused: No Physically Abused: No Sexually Abused: No Housing Stability: Unknown (04/26/2024) Housing Stability Vital Sign Unable to Pay for Housing in the Last Year: Patient declined Number of Times Moved in the Last Year: 1 Homeless in the Last Year: No Recent Concern: Housing Stability - High Risk (04/24/2024) Housing Stability Vital Sign Unable to Pay for Housing in the Last Year: Yes Number of Times Moved in the Last Year: 1 Homeless in the Last Year: No [5] Family History Problem Relation Name Age of Onset Hypertension Father Diabetes Father [place] Phone: 02-21-2025 Consult note Associated Order (s): IP CONSULT TO GENERAL SURGERY Images from the original note were not included. Department of General Surgery Surgical Service - Surg 4 Resident Consult Note 02/21/2025 CHIEF COMPLAINT: Chief Complaint Patient presents with Hernia Lower abd pain , hx of hernia repair , pt states she moved wrong and felt a tug or a pop Reason for Consult: HISTORY OF PRESENT ILLNESS: Mel Wall is a 39 y.o. female with significant past medical history of anxiety, depression, bipolar disorder, obesity s/p biliopancreatic diversion, and incision hernia s/p TAR 08/07/24 who presents with abdominal. Surgery was consulted for evaluation. Patient states she had had intermittent pain and the inferior aspect of her midline incision but it has become persistent over the past several days. She endorses some intermittent nausea and vomiting. Her last BM was Tuesday, she normally goes every other day. Denies any fevers, chills, shortness of breath, or chest pain. On evaluation patient was AFVSS . Labs reviewed significant for: WBC 7.6, Hgb 13.4. Imaging demonstrated expected post surgical changes. Medical History[1] Surgical History[2] Medications Prior to Admission: Medications Ordered Prior to Encounter[3] Allergies: Ketorolac, Ondansetron, and Seasonal Social History[4] Family History[5] REVIEW OF SYSTEMS: Review of Systems Constitutional: Negative for chills and fever. HENT: Negative for sore throat and trouble swallowing. Respiratory: Negative for shortness of breath and wheezing. Cardiovascular: Negative for chest pain and palpitations. Gastrointestinal: Positive for abdominal pain, nausea and vomiting. Genitourinary: Negative for difficulty urinating and dysuria. Musculoskeletal: Negative for arthralgias and myalgias. Skin: Negative for color change and wound. Neurological: Negative for dizziness and weakness. Psychiatric/Behavioral: Negative for confusion and hallucinations. PHYSICAL EXAM: Vitals: 02/21/25 0535 BP: 128/90 Pulse: 68 Resp: 20 Temp: 36.8 C (98.2 F) SpO2: 99% No intake/output data recorded. CONSTITUTIONAL: awake, alert, cooperative, no apparent distress NECK: Supple, symmetrical, trachea midline, no adenopathy LUNGS: No increased work of breathing, good air exchange CARDIOVASCULAR: Regular rate and rhythm ABDOMEN: Soft, non-distended, no rebound, no guarding, no masses palpated, focally tender to inferior aspect of midline incision, palpable nodule consistent with suture granuloma. No overlying skin changes. Incisions well-healed and approximated. CHEST: no masses palpated, no axillary or supraclavicular adenopathy GENITAL/URINARY: Not examined MUSCULOSKELETAL: There is no redness, warmth, or swelling of the joints. Full range of motion noted. NEUROLOGIC: Awake, alert, oriented to name, place and time. SKIN: normal skin color, texture, no redness, warmth, or swelling DATA: CBC: Lab Results Component Value Date WBC 7.6 02/20/2025 RBC 4.29 02/20/2025 HGB 13.4 02/20/2025 HCT 39.7 02/20/2025 MCV 92.5 02/20/2025 MCH 31.2 02/20/2025 MCHC 33.8 02/20/2025 RDW 12.4 02/20/2025 PLT 271 02/20/2025 MPV 9.2 02/20/2025 BMP: Lab Results Component Value Date NA 139 02/20/2025 K 4.0 02/20/2025 CL 105 02/20/2025 CO2 22 02/20/2025 BUN 8 02/20/2025 CREATININE 0.66 02/20/2025 CALCIUM 8.9 02/20/2025 GLUCOSE 92 02/20/2025 Hepatic Function Panel: Lab Results Component Value Date ALKPHOS 38 (L) 02/20/2025 ALT 8 02/20/2025 AST 12 02/20/2025 PROT 7.2 02/20/2025 BILITOT 0.4 02/20/2025 PT/INR: No results found for: PROTIME, INR Troponin: No results found for: TROPONINI LIPASE: Lab Results Component Value Date LIPASE 23 02/20/2025 IMAGING: ECG 12 lead EKG shows NSR, normal axis, normal LA QRS and QTC intervals, no STEMI, no SVT, no LVH. Previous EKG showed ectopic atrial rhythm. Electronically Signed On 02-21-2025 02:40:40 EDT by Contreras Castillo ASSESSMENT AND PLAN: This is a 39 y.o. female with likely suture granuloma at inferior aspect of incision - No acute surgical intervention - PO challenge - Pain and nausea control PRN - Rest of care per primary - Surgery will sign off at this time, please page with questions Patient discussed with attending, Dr. Taylor. Yakelin Whitehead MD General Surgery PGY-2 02/21/25 7:03 AM This note may have been dictated using [employer] / T[employer] Practice Edition 2.6 and/or [employer] Voice Recognition Feature. The document was proofread; however, unrecognized voice recognition wood stock blank handler errors may be present. ATTESTATION The patient was seen and examined. I have reviewed the patients presentation, histories, imaging and serology studies. I agree with the above assessment and plan. Ab: Soft, Non-distended, non-tender Patient states that she crossed her legs at work and felt a pop in her lower abdomen. She stated she felt pain and was concerned that she had a recurrent hernia. Currently, she denies nausea or vomiting and is tolerating liquids. She denies fevers, chills, sweats, shortness of breath or chest pain. Vital signs are stable. Patient does not have a leukocytosis. CT scan was personally reviewed and interpreted. It appears that the seroma which was seen on previous CT scans have resolved. Though she has some regions that appear to be consistent with diastases, there is no evidence of recurrent hernia at this time. I suspect some of the popping may be related to absorbable sutures given the timing of her surgery. I do not recommend any acute surgical intervention at this time. Okay to advance diet as tolerated. I recommend nonopioid medications for pain relief. Patient will follow-up with me 1 year from surgery. Thank you for allowing me to participate in the care of this patient. Please call with any questions, concerns or if the patient status changes. --------- I personally performed the evaluation and management of Mel Wall in the development of a treatment plan for this patient. I personally interviewed the patient and performed an individual physical examination. In addition, I discussed the patient's condition and treatment options with them. I have also reviewed and agree with the past medical, family and social history unless otherwise noted. All of the patient's questions were answered. I personally spent 55 minutes of time between the face to face encounter, physical exam, reviewing the medical history, coordinating the patient's care, counseling/educating the patient, ordering prescriptions/medications/tests/proc edures, interpreting results and documenting clinical information in the patient's electronic health record on the day of the encounter. 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 Partial obstruction of small intestine (HCC) 06/13/2024 [2] Past Surgical History: Procedure Laterality Date APPENDECTOMY BILIOPANCREATIC DIVERSION 10/23/2008 Sherie @ [place]; janel-en-y duodenojejunostomy for bile reflux CHOLECYSTECTOMY 02/2007 lap COLONOSCOPY N/A 11/29/2023 [facility]; repeat in 11/2033 EXPLORATORY LAPAROTOMY 06/10/2019 Veronica @ [facility]; ex lap, WAI INCISION AND DRAINAGE OF WOUND 08/09/2013 [facility]; I&D of surgical incision of LLQ INCISIONAL HERNIA REPAIR 10/20/2017 [facility]; open primary repair INCISIONAL HERNIA REPAIR 07/12/2018 [place]; open w/ mesh INCISIONAL HERNIA REPAIR 09/26/2018 [facility]; lap w/ mesh INCISIONAL HERNIA REPAIR 03/11/2020 ; repair w/ mesh excision, mesh replacement ([facility]ent[facility]ight St Mesh w/ Echo), WAI INCISIONAL HERNIA REPAIR 07/19/2015 [place]; open repair w/ mesh INCISIONAL HERNIA REPAIR 08/07/2024 [facility]; an open recurrent repair w/ mesh, WAI, TAR, removal of infarcted cecal epiploic appendage PANNICULECTOMY (HISTORICAL) 08/07/2024 [facility] SOFT TISSUE MASS EXCISION 08/02/2013 [facility]; STM excision of LLQ TONSILLECTOMY [3] Current Facility-Administered Medications Medication Dose Route Frequency Provider Last Rate Last Admin acetaminophen (Tylenol) tablet 650 mg 650 mg Oral q6h PRN Dilip Yen MD Or acetaminophen (Tylenol) suppository 650 mg 650 mg Rectal q6h PRN Dilip Yen MD FLUoxetine (PROzac) capsule 20 mg 20 mg Oral Daily Dilip Yen MD HYDROmorphone (Dilaudid) injection 0.5 mg 0.5 mg IntraVENous q6h PRN Kostas Cunha MD 0.5 mg at 02/21/25 0156 HYDROmorphone (Dilaudid) injection 0.5 mg 0.5 mg IntraVENous q6h PRN Dilip Yen MD 0.5 mg at 02/21/25 0645 melatonin tablet 3 mg 3 mg Oral Nightly PRN Dilip Yen MD naloxone (Narcan) injection 0.4 mg 0.4 mg IntraVENous PRN Dilip Yen MD oxyCODONE (Roxicodone) immediate release tablet 5 mg 5 mg Oral q6h PRN Dilip Yen MD Or oxyCODONE (Roxicodone) immediate release tablet 10 mg 10 mg Oral q6h PRN Dilip Yen MD polyethylene glycol (PEG) 3350 (Miralax) packet 17 g 17 g Oral Daily PRN Dilip Yen MD polyethylene glycol (PEG) 3350 (Miralax) packet 17 g 17 g Oral Daily Yakelin Whitehead MD prochlorperazine (Compazine) injection 5 mg 5 mg IntraVENous q6h PRN Dilip Yen MD [4] Social History Socioeconomic History Marital status: Tobacco Use Smoking status: Former Types: Cigarettes Smokeless tobacco: Never Substance and Sexual Activity Alcohol use: Not Currently Drug use: Yes Frequency: 2.0 times per week Types: Marijuana Comment: edibles Sexual activity: Not Currently Social Drivers of Health Financial Resource Strain: High Risk (04/24/2024) Overall Financial Resource Strain (CARDIA) Difficulty of Paying Living Expenses: Very hard Food Insecurity: Patient Declined (04/26/2024) Hunger Vital Sign Worried About Running Out of Food in the Last Year: Patient declined Ran Out of Food in the Last Year: Patient declined Recent Concern: Food Insecurity - Food Insecurity Present (04/24/2024) Hunger Vital Sign Worried About Running Out of Food in the Last Year: Often true Ran Out of Food in the Last Year: Often true Transportation Needs: Patient Declined (04/26/2024) PRAPARE - Transportation Lack of Transportation (Medical): Patient declined Lack of Transportation (Non-Medical): Patient declined Recent Concern: Transportation Needs - Unmet Transportation Needs (04/24/2024) PRAPARE - Transportation Lack of Transportation (Medical): Yes Lack of Transportation (Non-Medical): Yes Physical Activity: Sufficiently Active (04/24/2024) Exercise Vital Sign Days of Exercise per Week: 7 days Minutes of Exercise per Session: 60 min Stress: Stress Concern Present (04/24/2024) [employer] [place] [employer] - Occupational Stress Questionnaire Feeling of Stress : Very much Social Connections: Moderately Integrated (04/24/2024) Social Connection and Isolation Panel [NHANES] Frequency of Communication with Friends and Family: Twice a week Frequency of Social Gatherings with Friends and Family: Once a week Attends Adventism Services: More than 4 times per year Active Member of Clubs or Organizations: No Attends Club or Organization Meetings: More than 4 times per year Marital Status: Intimate Partner Violence: Not At Risk (02/21/2025) Humiliation, Afraid, Rape, and Kick questionnaire Fear of Current or Ex-Partner: No Emotionally Abused: No Physically Abused: No Sexually Abused: No Housing Stability: Unknown (04/26/2024) Housing Stability Vital Sign Unable to Pay for Housing in the Last Year: Patient declined Number of Times Moved in the Last Year: 1 Homeless in the Last Year: No Recent Concern: Housing Stability - High Risk (04/24/2024) Housing Stability Vital Sign Unable to Pay for Housing in the Last Year: Yes Number of Times Moved in the Last Year: 1 Homeless in the Last Year: No [5] Family History Problem Relation Name Age of Onset Hypertension Father Diabetes Father documented in this encounter [facility] 02-21-2025 Emergency department Note Pt transferring to [facility] in private vehicle with significant other. Patient A/Ox4, stable at time of transfer. [facility] 02-21-2025 Emergency department Note Pt transferring to [facility] in private vehicle with significant other. Patient A/Ox4, stable at time of transfer. Report called to MARIE Hayden, [facility] 4N Patient resting comfortably in bed, no distress noted. Awaiting bed assignment. Call light within reach. PT ambulatory to restroom Emergency Department Encounter [facility] EMERGENCY DEPT Patient: Mel Wall : 1985 Date of Evaluation: 02/20/2025 ED Supervising Physician: Kostas Cunha MD I personally evaluated Mel Wall and made/approved the management plan and take responsibility for the patient management. This will serve as my Supervisory note and shared attestation. I did perform a substantive portion of the visit including all aspects of the Medical Decision Making. I wore appropriate PPE for the entirety of this encounter. In brief, Mel Wall is a 39 y.o. that presents to the emergency department abdominal pain and vomiting. The patient has been symptomatic for the past couple days. Her bowel movements have not been normal although she is not truly constipated. She denies any dysuria or frequency. No RETAIL STOCK CLERK complaints described. No fevers or chills. She had chest pain earlier because of anxiety although nothing current. No trouble breathing. No other associated complaints. Focused exam: Patient appears uncomfortable although nontoxic. Lungs are clear. Heart regular rate and rhythm. Abdomen shows mild generalized tenderness with mild guarding in the mid quadrants, but no real rebound. Bowel sounds may be a little hypoactive. No masses noted. Skin is warm and dry. There is no jaundice or scleral icterus. She is awake and alert with no focal neurologic findings. The rest of her preliminary exam otherwise unremarkable. Brief ED course/MDM: Patient was medicated for pain. Labs and imaging studies were obtained. Lab work was unremarkable. CT abdomen shows 1. Apparent prior cholecystectomy with upper abdominal surgical clips at duodenum with small bowel surgery left side with minimal dilated jejunal loops. 2. Postsurgical changes anterior abdominal wall with some adjacent bowel loops (possibly due to adhesions) with diastases recti. Bilateral tubal ligation clips. 3. Punctate right renal calculus, small bilateral renal cysts. I ordered more pain medication for her after I saw her. I told her that we would likely need to admit her overnight to the hospital based on her presenting symptoms. The concern is that she may have an early bowel obstruction developing. Patient is comfortable with the admission. Please refer to CASANDRA dictation for further details. Diagnostics interpreted by me: none I personally discussed the patient's management with other clinicians: none All diagnostic, treatment, and disposition decisions were made by myself in conjunction with the CASANDRA. For all further details of the patient's emergency department visit, please see their documentation. (Comment: Please note this report has been produced using speech recognition software and may contain errors related to that system including errors in grammar, punctuation, and spelling, as well as words and phrases that may be inappropriate. If there are any questions or concerns please feel free to contact the dictating provider for clarification.) Kostas Cunha MD [employer] Kostas Cunha MD 02/20/251951 EMERGENCY DEPARTMENT ENCOUNTER Pt Name: Mel Wall Birthdate 1985 Date of evaluation: 02/20/2025 ED Provider: Armand Sahni PA-C CHIEF COMPLAINT Chief Complaint Patient presents with Hernia Lower abd pain , hx of hernia repair , pt states she moved wrong and felt a tug or a pop HISTORY OF PRESENT ILLNESS (Location/Symptom, Timing/Onset, Context/Setting, Quality, Duration, Modifying Factors, Severity) Note limiting factors. I wore appropriate PPE for the entirety of this encounter. HPI Mel Wall is a 39 y.o. female who presents to the emergency department with abdominal pain, nausea, vomiting, history of open recurrent incisional hernia repair w/ mesh, WAI, TAR, panniculectomy, removal of infarcted cecal epiploic appendage on 08/07/24. Had a ED visit on 09/[address] which showed subcutaneous seroma. Underwent IR guided drainage with sclerosis on 09/07/24 and had drain removed on 09/14/24 with no evidence of persistent fluid. Has had intermittent abdominal pain issues since then, multiple ED visits, seen in November and December in the ED, ultimately discharged at those times. Significantly worsened today she reached out to her general surgeon ultimately came to the ED. Is not eating much so no bowel output. Denies any dark or bloody stools or bloody emesis. Denies change in urinary habits. Denies fevers or chills. She says she crossed her legs a couple days ago and felt like her hernia slipped out. Nursing Notes were reviewed. Limitations to history: None Outside historians: None REVIEW OF SYSTEMS Review of Systems 8 systems reviewed, positives and pertinent negatives as per HPI. All other systems were reviewed and are negative. PAST MEDICAL HISTORY Medical History[1] SURGICAL HISTORY Surgical History[2] CURRENT MEDICATIONS Previous Medications ACETAMINOPHEN (TYLENOL) 325 MG TABLET Take 650 mg by mouth every 6 hours as needed for mild pain (1-3), moderate pain (4-6), headaches or fever. ALBUTEROL 108 (90 BASE) MCG/ACT INHALER Inhale 2 puffs every 4 hours as needed for wheezing or shortness of breath. FLUOXETINE (PROZAC) 20 MG CAPSULE Take 20 mg by mouth daily. ALLERGIES Ketorolac, Ondansetron, and Seasonal FAMILY HISTORY Family History[3] SOCIAL HISTORY Social History[4] SCREENINGS PHYSICAL EXAM ED Triage Vitals Temp Heart Rate Resp BP 02/20/25 1623 02/20/25 1623 02/20/25 1623 02/20/25 1623 36.7 C (98 F) 78 18 (!) 149/92 SpO2 Temp Source Heart Rate Source Patient Position 02/20/25 1623 02/20/25 1623 02/20/25 1623 02/20/252020 99 % Temporal Monitor Sitting BP Location FiO2 (%) 02/20/252020 -- Left arm Physical Exam Constitutional: Comments: Uncomfortable appearing female nondistressed overall. HENT: Head: Normocephalic and atraumatic. Cardiovascular: Rate and Rhythm: Normal rate and regular rhythm. Heart sounds: Normal heart sounds. Pulmonary: Effort: Pulmonary effort is normal. Breath sounds: Normal breath sounds and air entry. No decreased breath sounds, wheezing, rhonchi or rales. Abdominal: General: Abdomen is flat. Bowel sounds are decreased. Palpations: Abdomen is soft. Tenderness: There is generalized abdominal tenderness. Comments: Mild generalized tenderness, primarily suprapubic, abdomen flat and soft, no lanie peritonitis. Well-healed midline surgical scar. No palpable defects or hernias. Slightly hypoactive bowel sounds. Musculoskeletal: Cervical back: Normal range of motion. Skin: General: Skin is warm. Neurological: Mental Status: She is alert. DIAGNOSTIC RESULTS RADIOLOGY (Per Emergency Physician): Interpretation per the Radiologist below, if available at the time of this note: CT abdomen pelvis w contrast Final Result LABS: Labs Reviewed CBC WITH AUTO DIFFERENTIAL - Abnormal Result Value Auto WBC 7.6 RBC 4.29 Hemoglobin 13.4 Hematocrit 39.7 MCV 92.5 MCH 31.2 MCHC 33.8 RDW 12.4 Platelets 271 MPV 9.2 nRBC 0.0 Neutrophils Relative 63.3 Lymphocytes Relative 29.0 Monocytes Relative 4.6 (*) Eosinophils Relative 2.4 Basophils Relative 0.4 Immature Grans % 0.3 Neutrophils Absolute 4.8 Lymphocytes Absolute 2.2 Monocytes Absolute 0.4 Eosinophils Absolute 0.2 Basophils Absolute 0.0 Immature Grans Absolute 0.0 COMPREHENSIVE METABOLIC PANEL - Abnormal SODIUM 139 POTASSIUM 4.0 CHLORIDE 105 CARBON DIOXIDE 22 ANION GAP 12 UREA NITROGEN 8 CREATININE 0.66 GLUCOSE 92 CALCIUM 8.9 AST (SGOT) 12 ALT 8 ALKALINE PHOSPHATASE 38 (*) ALBUMIN 4.1 BILIRUBIN, TOTAL 0.4 TOTAL PROTEIN 7.2 eGFR >90.0 COMPLETE URINALYSIS WITH REFLEX TO CULTURE - Abnormal Color, Urine Light Yellow Clarity, Urine Slightly Cloudy (*) pH, Urine 6.5 Leukocytes, Urine Negative Nitrite, Urine Negative Protein, Urine Negative Glucose, Urine Normal Bilirubin, Urine Negative Ketones, Urine Negative Urobilinogen, Urine Normal Blood, Urine Negative SPECIFIC GRAVITY OF URINE (NUMERIC) 1.008 Narrative: A specimen with <=10 WBC is not consistent with inflammation. This specimen will not reflex to a urine culture. LIPASE - Normal LIPASE 23 HIGH SENSITIVITY TROPONIN, SERIAL BASELINE - Normal Troponin HS Serial Baseline <3 HCG QUALITATIVE URINE HCG,URINE QUAL Negative Narrative: is the most common reason for HCG in urine, although choriocarcinoma, hydatidiform mole, and certain nontrophoblastic malignancies also result in detectable urinary HCG levels. Sensitivity = 20mIU/mL. All other labs were within normal range or not returned as of this dictation. EMERGENCY DEPARTMENT COURSE and DIFFERENTIAL DIAGNOSIS/MDM: Vitals: Vitals: 02/20/25 1622 02/20/25 1623 02/20/252020 BP: (!) 149/92 124/71 BP Location: Left arm Patient Position: Sitting Pulse: 78 70 Resp: 18 18 Temp: 36.7 C (98 F) TempSrc: Temporal SpO2: 99% 100% Weight: 99.8 kg (220 lb) Height: 1.651 m (5' 5) Medications morphine injection 4 mg (4 mg IntraVENous Given 02/20/251748) sodium chloride 0.9 % bolus 1,000 mL (0 mL IntraVENous Stopped 02/20/252017) promethazine (Phenergan) injection 12.5 mg (12.5 mg IntraMUSCular Given 02/20/251736) iopamidol (Isovue-370) 76 % injection 75 mL (75 mL IntraVENous Given 02/20/251834) morphine injection 4 mg (4 mg IntraVENous Given 02/20/251918) HYDROmorphone (Dilaudid) injection 0.5 mg (0.5 mg IntraVENous Given 02/20/251951) HYDROmorphone (Dilaudid) injection 0.5 mg (0.5 mg IntraVENous Given 02/20/252036) promethazine (Phenergan) injection 12.5 mg (12.5 mg IntraMUSCular Given 02/20/252036) ED care was supervised by Dr. Cunha who independently examined and evaluated the patient. Please see their attestation note for further details. In brief, Mel Wall is a 39 y.o. female who presented to the emergency department with abdominal pain. Nursing notes and medical records reviewed, reviewed notes from prior ED visits here at [facility] 12/25 as well as 11/23, had CT imaging at those visits. Differential considerations included postoperative complication such as bowel obstruction, bowel perforation, intra-abdominal abscess or postoperative seroma. Initial medical management includes IV fluid, IM Phenergan, IV morphine. Other medications considered Zofran but she is allergic. Initial workup includes screening labs, CT abdomen pelvis with contrast. Upon reassessment patient not feeling much better, still in pain and nausea, additional pain and nausea control ordered. Lab workup results reviewed CBC shows no leukocytosis or anemia, metabolic panel without major derangement normal renal function electrolytes, ALP 38, otherwise normal LFTs and bilirubin. Urinalysis with no sign of UTI. Lipase normal at 23. HST negative. hCG negative. CT abdomen pelvis with contrast per radiology showing apparent prior cholecystectomy with upper abdominal surgical clips of duodenum with small bowel surgery left side with minimal dilated jejunal loops, postsurgical changes anterior abdominal wall with some adjacent bowel loops possibly due to adhesions with diastases recti, bilateral tubal ligation clips, renal calculi and small bilateral renal cysts. Social determinants to care: None identified Discussed results with patient given intractability of pain recommended admission for further pain control and general surgery consultation, she was agreeable. 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 Yen, agreed with plans for hospitalization, admitted to [facility] to his service in stable condition. PROCEDURES: Unless otherwise noted below, none Procedures FINAL IMPRESSION 1. Intractable abdominal pain DISPOSITION Admit 02/20/2025 08:50:32 PM PATIENT REFERRED TO: No follow-up provider specified. DISCHARGE MEDICATIONS: New Prescriptions No medications on file (Comment: Please note this report has been produced using speech recognition software and may contain errors related to that system including errors in grammar, punctuation, and spelling, as well as words and phrases that may be inappropriate. 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 Partial obstruction of small intestine (HCC) 06/13/2024 [2] Past Surgical History: Procedure Laterality Date APPENDECTOMY BILIOPANCREATIC DIVERSION 10/23/2008 Sherie @ [place]; janel-en-y duodenojejunostomy for bile reflux CHOLECYSTECTOMY 02/2007 lap COLONOSCOPY N/A 11/29/2023 [facility]; repeat in 11/2033 EXPLORATORY LAPAROTOMY 06/10/2019 Veronica @ [facility]; ex lap, WAI INCISION AND DRAINAGE OF WOUND 08/09/2013 [place]; I&D of surgical incision of LLQ INCISIONAL HERNIA REPAIR 10/20/2017 [place]; open primary repair INCISIONAL HERNIA REPAIR 07/12/2018 [place]; open w/ mesh INCISIONAL HERNIA REPAIR 09/26/2018 [facility]; lap w/ mesh INCISIONAL HERNIA REPAIR 03/11/2020 ; repair w/ mesh excision, mesh replacement ([facility] Mesh w/ Echo), WAI INCISIONAL HERNIA REPAIR 07/19/2015 [facility]; open repair w/ mesh INCISIONAL HERNIA REPAIR 08/07/2024 [facility]; an open recurrent repair w/ mesh, WAI, TAR, removal of infarcted cecal epiploic appendage PANNICULECTOMY (HISTORICAL) 08/07/2024 [facility] SOFT TISSUE MASS EXCISION 08/02/2013 [facility]; STM excision of LLQ TONSILLECTOMY [3] Family History Problem Relation Name Age of Onset Hypertension Father Diabetes Father [4] Social History Socioeconomic History Marital status: Tobacco Use Smoking status: Former Types: Cigarettes Smokeless tobacco: Never Substance and Sexual Activity Alcohol use: Not Currently Drug use: Yes Frequency: 2.0 times per week Types: Marijuana Comment: edibles Sexual activity: Not Currently Social Drivers of Health Financial Resource Strain: High Risk (04/24/2024) Overall Financial Resource Strain (CARDIA) Difficulty of Paying Living Expenses: Very hard Food Insecurity: Patient Declined (04/26/2024) Hunger Vital Sign Worried About Running Out of Food in the Last Year: Patient declined Ran Out of Food in the Last Year: Patient declined Recent Concern: Food Insecurity - Food Insecurity Present (04/24/2024) Hunger Vital Sign Worried About Running Out of Food in the Last Year: Often true Ran Out of Food in the Last Year: Often true Transportation Needs: Patient Declined (04/26/2024) PRAPARE - Transportation Lack of Transportation (Medical): Patient declined Lack of Transportation (Non-Medical): Patient declined Recent Concern: Transportation Needs - Unmet Transportation Needs (04/24/2024) PRAPARE - Transportation Lack of Transportation (Medical): Yes Lack of Transportation (Non-Medical): Yes Physical Activity: Sufficiently Active (04/24/2024) Exercise Vital Sign Days of Exercise per Week: 7 days Minutes of Exercise per Session: 60 min Stress: Stress Concern Present (04/24/2024) [employer] [place] [employer] - Occupational Stress Questionnaire Feeling of Stress : Very much Social Connections: Moderately Integrated (04/24/2024) Social Connection and Isolation Panel [NHANES] Frequency of Communication with Friends and Family: Twice a week Frequency of Social Gatherings with Friends and Family: Once a week Attends [employer]ism Services: More than 4 times per year Active Member of Clubs or Organizations: No Attends Club or Organization Meetings: More than 4 times per year Marital Status: Intimate Partner Violence: Patient Declined (04/26/2024) Humiliation, Afraid, Rape, and Kick questionnaire Fear of Current or Ex-Partner: Patient declined Emotionally Abused: Patient declined Physically Abused: Patient declined Sexually Abused: Patient declined Housing Stability: Unknown (04/26/2024) Housing Stability Vital Sign Unable to Pay for Housing in the Last Year: Patient declined Number of Times Moved in the Last Year: 1 Homeless in the Last Year: No Recent Concern: Housing Stability - High Risk (04/24/2024) Housing Stability Vital Sign Unable to Pay for Housing in the Last Year: Yes Number of Times Moved in the Last Year: 1 Homeless in the Last Year: No Armand Sahni PA-C 02/20/252156 Cosigned by Kostas Cunha MD at 02/21/2025 1:39 AM EDT documented in this encounter [facility] 02-21-2025 Emergency department Note Report called to MARIE Hayden, [facility]N [facility] 02-21-2025 Emergency department Note Patient resting comfortably in bed, no distress noted. Awaiting bed assignment. Call light within reach. [facility] 02-20-2025 Emergency department Note PT ambulatory to restroom [facility] 02-20-2025 Physician Emergency department Note Emergency Department Encounter [facility] EMERGENCY DEPT Patient: Mel Wall : 1985 Date of Evaluation: 02/20/2025 ED Supervising Physician: Kostas Cunha MD I personally evaluated Mel Wall and made/approved the management plan and take responsibility for the patient management. This will serve as my Supervisory note and shared attestation. I did perform a substantive portion of the visit including all aspects of the Medical Decision Making. I wore appropriate PPE for the entirety of this encounter. In brief, Mel Wall is a 39 y.o. that presents to the emergency department abdominal pain and vomiting. The patient has been symptomatic for the past couple days. Her bowel movements have not been normal although she is not truly constipated. She denies any dysuria or frequency. No RETAIL STOCK CLERK complaints described. No fevers or chills. She had chest pain earlier because of anxiety although nothing current. No trouble breathing. No other associated complaints. Focused exam: Patient appears uncomfortable although nontoxic. Lungs are clear. Heart regular rate and rhythm. Abdomen shows mild generalized tenderness with mild guarding in the mid quadrants, but no real rebound. Bowel sounds may be a little hypoactive. No masses noted. Skin is warm and dry. There is no jaundice or scleral icterus. She is awake and alert with no focal neurologic findings. The rest of her preliminary exam otherwise unremarkable. Brief ED course/MDM: Patient was medicated for pain. Labs and imaging studies were obtained. Lab work was unremarkable. CT abdomen shows 1. Apparent prior cholecystectomy with upper abdominal surgical clips at duodenum with small bowel surgery left side with minimal dilated jejunal loops. 2. Postsurgical changes anterior abdominal wall with some adjacent bowel loops (possibly due to adhesions) with diastases recti. Bilateral tubal ligation clips. 3. Punctate right renal calculus, small bilateral renal cysts. I ordered more pain medication for her after I saw her. I told her that we would likely need to admit her overnight to the hospital based on her presenting symptoms. The concern is that she may have an early bowel obstruction developing. Patient is comfortable with the admission. Please refer to CASANDRA dictation for further details. Diagnostics interpreted by me: none I personally discussed the patient's management with other clinicians: none All diagnostic, treatment, and disposition decisions were made by myself in conjunction with the CASANDRA. For all further details of the patient's emergency department visit, please see their documentation. (Comment: Please note this report has been produced using speech recognition software and may contain errors related to that system including errors in grammar, punctuation, and spelling, as well as words and phrases that may be inappropriate. If there are any questions or concerns please feel free to contact the dictating provider for clarification.) Kostas Cunha MD Acute Care [facility] Kostas Cunha MD 02/20/251951 [place] Phone: 02-20-2025 Physician Emergency department Note EMERGENCY DEPARTMENT ENCOUNTER Pt Name: Mel Wall Birthdate 1985 Date of evaluation: 02/20/2025 ED Provider: Armand Sahni PA-C CHIEF COMPLAINT Chief Complaint Patient presents with Hernia Lower abd pain , hx of hernia repair , pt states she moved wrong and felt a tug or a pop HISTORY OF PRESENT ILLNESS (Location/Symptom, Timing/Onset, Context/Setting, Quality, Duration, Modifying Factors, Severity) Note limiting factors. I wore appropriate PPE for the entirety of this encounter. HPI Mel Wall is a 39 y.o. female who presents to the emergency department with abdominal pain, nausea, vomiting, history of open recurrent incisional hernia repair w/ mesh, WAI, TAR, panniculectomy, removal of infarcted cecal epiploic appendage on 08/07/24. Had a ED visit on 09/[address] which showed subcutaneous seroma. Underwent IR guided drainage with sclerosis on 09/07/24 and had drain removed on 09/14/24 with no evidence of persistent fluid. Has had intermittent abdominal pain issues since then, multiple ED visits, seen in November and December in the ED, ultimately discharged at those times. Significantly worsened today she reached out to her general surgeon ultimately came to the ED. Is not eating much so no bowel output. Denies any dark or bloody stools or bloody emesis. Denies change in urinary habits. Denies fevers or chills. She says she crossed her legs a couple days ago and felt like her hernia slipped out. Nursing Notes were reviewed. Limitations to history: None Outside historians: None REVIEW OF SYSTEMS Review of Systems 8 systems reviewed, positives and pertinent negatives as per HPI. All other systems were reviewed and are negative. PAST MEDICAL HISTORY Medical History[1] SURGICAL HISTORY Surgical History[2] CURRENT MEDICATIONS Previous Medications ACETAMINOPHEN (TYLENOL) 325 MG TABLET Take 650 mg by mouth every 6 hours as needed for mild pain (1-3), moderate pain (4-6), headaches or fever. ALBUTEROL 108 (90 BASE) MCG/ACT INHALER Inhale 2 puffs every 4 hours as needed for wheezing or shortness of breath. FLUOXETINE (PROZAC) 20 MG CAPSULE Take 20 mg by mouth daily. ALLERGIES Ketorolac, Ondansetron, and Seasonal FAMILY HISTORY Family History[3] SOCIAL HISTORY Social History[4] SCREENINGS PHYSICAL EXAM ED Triage Vitals Temp Heart Rate Resp BP 02/20/25162202/20/25162202/20/25162202/20/251622 36.7 C (98 F) 78 18 (!) 149/92 SpO2 Temp Source Heart Rate Source Patient Position 02/20/25 16202/20/25 16202/20/25 16202/20/252020 99 % Temporal Monitor Sitting BP Location FiO2 (%) 02/20/252020 -- Left arm Physical Exam Constitutional: Comments: Uncomfortable appearing female nondistressed overall. HENT: Head: Normocephalic and atraumatic. Cardiovascular: Rate and Rhythm: Normal rate and regular rhythm. Heart sounds: Normal heart sounds. Pulmonary: Effort: Pulmonary effort is normal. Breath sounds: Normal breath sounds and air entry. No decreased breath sounds, wheezing, rhonchi or rales. Abdominal: General: Abdomen is flat. Bowel sounds are decreased. Palpations: Abdomen is soft. Tenderness: There is generalized abdominal tenderness. Comments: Mild generalized tenderness, primarily suprapubic, abdomen flat and soft, no lanie peritonitis. Well-healed midline surgical scar. No palpable defects or hernias. Slightly hypoactive bowel sounds. Musculoskeletal: Cervical back: Normal range of motion. Skin: General: Skin is warm. Neurological: Mental Status: She is alert. DIAGNOSTIC RESULTS RADIOLOGY (Per Emergency Physician): Interpretation per the Radiologist below, if available at the time of this note: CT abdomen pelvis w contrast Final Result LABS: Labs Reviewed CBC WITH AUTO DIFFERENTIAL - Abnormal Result Value Auto WBC 7.6 RBC 4.29 Hemoglobin 13.4 Hematocrit 39.7 MCV 92.5 MCH 31.2 MCHC 33.8 RDW 12.4 Platelets 271 MPV 9.2 nRBC 0.0 Neutrophils Relative 63.3 Lymphocytes Relative 29.0 Monocytes Relative 4.6 (*) Eosinophils Relative 2.4 Basophils Relative 0.4 Immature Grans % 0.3 Neutrophils Absolute 4.8 Lymphocytes Absolute 2.2 Monocytes Absolute 0.4 Eosinophils Absolute 0.2 Basophils Absolute 0.0 Immature Grans Absolute 0.0 COMPREHENSIVE METABOLIC PANEL - Abnormal SODIUM 139 POTASSIUM 4.0 CHLORIDE 105 CARBON DIOXIDE 22 ANION GAP 12 UREA NITROGEN 8 CREATININE 0.66 GLUCOSE 92 CALCIUM 8.9 AST (SGOT) 12 ALT 8 ALKALINE PHOSPHATASE 38 (*) ALBUMIN 4.1 BILIRUBIN, TOTAL 0.4 TOTAL PROTEIN 7.2 eGFR >90.0 COMPLETE URINALYSIS WITH REFLEX TO CULTURE - Abnormal Color, Urine Light Yellow Clarity, Urine Slightly Cloudy (*) pH, Urine 6.5 Leukocytes, Urine Negative Nitrite, Urine Negative Protein, Urine Negative Glucose, Urine Normal Bilirubin, Urine Negative Ketones, Urine Negative Urobilinogen, Urine Normal Blood, Urine Negative SPECIFIC GRAVITY OF URINE (NUMERIC) 1.008 Narrative: A specimen with <=10 WBC is not consistent with inflammation. This specimen will not reflex to a urine culture. LIPASE - Normal LIPASE 23 HIGH SENSITIVITY TROPONIN, SERIAL BASELINE - Normal Troponin HS Serial Baseline <3 HCG QUALITATIVE URINE HCG,URINE QUAL Negative Narrative: is the most common reason for HCG in urine, although choriocarcinoma, hydatidiform mole, and certain nontrophoblastic malignancies also result in detectable urinary HCG levels. Sensitivity = 20mIU/mL. All other labs were within normal range or not returned as of this dictation. EMERGENCY DEPARTMENT COURSE and DIFFERENTIAL DIAGNOSIS/MDM: Vitals: Vitals: 02/20/25 1622 02/20/25 1623 02/20/252020 BP: (!) 149/92 124/71 BP Location: Left arm Patient Position: Sitting Pulse: 78 70 Resp: 18 18 Temp: 36.7 C (98 F) TempSrc: Temporal SpO2: 99% 100% Weight: 99.8 kg (220 lb) Height: 1.651 m (5' 5) Medications morphine injection 4 mg (4 mg IntraVENous Given 02/20/251748) sodium chloride 0.9 % bolus 1,000 mL (0 mL IntraVENous Stopped 02/20/252017) promethazine (Phenergan) injection 12.5 mg (12.5 mg IntraMUSCular Given 02/20/251736) iopamidol (Isovue-370) 76 % injection 75 mL (75 mL IntraVENous Given 02/20/251834) morphine injection 4 mg (4 mg IntraVENous Given 02/20/251918) HYDROmorphone (Dilaudid) injection 0.5 mg (0.5 mg IntraVENous Given 02/20/251951) HYDROmorphone (Dilaudid) injection 0.5 mg (0.5 mg IntraVENous Given 02/20/252036) promethazine (Phenergan) injection 12.5 mg (12.5 mg IntraMUSCular Given 02/20/252036) ED care was supervised by Dr. Cunha who independently examined and evaluated the patient. Please see their attestation note for further details. In brief, Mel Wall is a 39 y.o. female who presented to the emergency department with abdominal pain. Nursing notes and medical records reviewed, reviewed notes from prior ED visits here at [facility] 12/25 as well as 11/23, had CT imaging at those visits. Differential considerations included postoperative complication such as bowel obstruction, bowel perforation, intra-abdominal abscess or postoperative seroma. Initial medical management includes IV fluid, IM Phenergan, IV morphine. Other medications considered Zofran but she is allergic. Initial workup includes screening labs, CT abdomen pelvis with contrast. Upon reassessment patient not feeling much better, still in pain and nausea, additional pain and nausea control ordered. Lab workup results reviewed CBC shows no leukocytosis or anemia, metabolic panel without major derangement normal renal function electrolytes, ALP 38, otherwise normal LFTs and bilirubin. Urinalysis with no sign of UTI. Lipase normal at 23. HST negative. hCG negative. CT abdomen pelvis with contrast per radiology showing apparent prior cholecystectomy with upper abdominal surgical clips of duodenum with small bowel surgery left side with minimal dilated jejunal loops, postsurgical changes anterior abdominal wall with some adjacent bowel loops possibly due to adhesions with diastases recti, bilateral tubal ligation clips, renal calculi and small bilateral renal cysts. Social determinants to care: None identified Discussed results with patient given intractability of pain recommended admission for further pain control and general surgery consultation, she was agreeable. 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 Yen, agreed with plans for hospitalization, admitted to [facility] to his service in stable condition. PROCEDURES: Unless otherwise noted below, none Procedures FINAL IMPRESSION 1. Intractable abdominal pain DISPOSITION Admit 02/20/2025 08:50:32 PM PATIENT REFERRED TO: No follow-up provider specified. DISCHARGE MEDICATIONS: New Prescriptions No medications on file (Comment: Please note this report has been produced using speech recognition software and may contain errors related to that system including errors in grammar, punctuation, and spelling, as well as words and phrases that may be inappropriate. 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 Partial obstruction of small intestine (HCC) 06/13/2024 [2] Past Surgical History: Procedure Laterality Date APPENDECTOMY BILIOPANCREATIC DIVERSION 10/23/2008 Sherie @ [facility]; janel-en-y duodenojejunostomy for bile reflux CHOLECYSTECTOMY 02/2007 lap COLONOSCOPY N/A 11/29/2023 [facility]; repeat in 11/2033 EXPLORATORY LAPAROTOMY 06/10/2019 Veronica @ [facility]; ex lap, WAI INCISION AND DRAINAGE OF WOUND 08/09/2013 [place]; I&D of surgical incision of LLQ INCISIONAL HERNIA REPAIR 10/20/2017 [place]; open primary repair INCISIONAL HERNIA REPAIR 07/12/2018 [facility]; open w/ mesh INCISIONAL HERNIA REPAIR 09/26/2018 [place]; lap w/ mesh INCISIONAL HERNIA REPAIR 03/11/2020 [facility]; repair w/ mesh excision, mesh replacement ([facility] Mesh w/ Echo), WAI INCISIONAL HERNIA REPAIR 07/19/2015 [facility]; open repair w/ mesh INCISIONAL HERNIA REPAIR 08/07/2024 [facility]; an open recurrent repair w/ mesh, WAI, TAR, removal of infarcted cecal epiploic appendage PANNICULECTOMY (HISTORICAL) 08/07/2024 [facility] SOFT TISSUE MASS EXCISION 08/02/2013 [facility]; STM excision of LLQ TONSILLECTOMY [3] Family History Problem Relation Name Age of Onset Hypertension Father Diabetes Father [4] Social History Socioeconomic History Marital status: Tobacco Use Smoking status: Former Types: Cigarettes Smokeless tobacco: Never Substance and Sexual Activity Alcohol use: Not Currently Drug use: Yes Frequency: 2.0 times per week Types: Marijuana Comment: edibles Sexual activity: Not Currently Social Drivers of Health Financial Resource Strain: High Risk (04/24/2024) Overall Financial Resource Strain (CARDIA) Difficulty of Paying Living Expenses: Very hard Food Insecurity: Patient Declined (04/26/2024) Hunger Vital Sign Worried About Running Out of Food in the Last Year: Patient declined Ran Out of Food in the Last Year: Patient declined Recent Concern: Food Insecurity - Food Insecurity Present (04/24/2024) Hunger Vital Sign Worried About Running Out of Food in the Last Year: Often true Ran Out of Food in the Last Year: Often true Transportation Needs: Patient Declined (04/26/2024) PRAPARE - Transportation Lack of Transportation (Medical): Patient declined Lack of Transportation (Non-Medical): Patient declined Recent Concern: Transportation Needs - Unmet Transportation Needs (04/24/2024) PRAPARE - Transportation Lack of Transportation (Medical): Yes Lack of Transportation (Non-Medical): Yes Physical Activity: Sufficiently Active (04/24/2024) Exercise Vital Sign Days of Exercise per Week: 7 days Minutes of Exercise per Session: 60 min Stress: Stress Concern Present (04/24/2024) [employer] - Occupational Stress Questionnaire Feeling of Stress : Very much Social Connections: Moderately Integrated (04/24/2024) Social Connection and Isolation Panel [NHANES] Frequency of Communication with Friends and Family: Twice a week Frequency of Social Gatherings with Friends and Family: Once a week Attends Adventism Services: More than 4 times per year Active Member of Clubs or Organizations: No Attends Club or Organization Meetings: More than 4 times per year Marital Status: Intimate Partner Violence: Patient Declined (04/26/2024) Humiliation, Afraid, Rape, and Kick questionnaire Fear of Current or Ex-Partner: Patient declined Emotionally Abused: Patient declined Physically Abused: Patient declined Sexually Abused: Patient declined Housing Stability: Unknown (04/26/2024) Housing Stability Vital Sign Unable to Pay for Housing in the Last Year: Patient declined Number of Times Moved in the Last Year: 1 Homeless in the Last Year: No Recent Concern: Housing Stability - High Risk (04/24/2024) Housing Stability Vital Sign Unable to Pay for Housing in the Last Year: Yes Number of Times Moved in the Last Year: 1 Homeless in the Last Year: No Armand Sahni PA-C [id number] Cosigned by Kostas Cunha MD at 02/21/2025 1:39 AM EDT [facility] 02-19-2025 Miscellaneous Notes Patient called in, gathered more information: -midline surgical incision on lower abdomen has a hard area that has popped up since Tuesday -skin is intact, warm, dry; no discharge -discomfort localized to midline, does not radiate; described as dull, achey; sometimes pulling but not as much -consistent pain but gets worse when she feels like she has to have a BM; she has had multiple abdominal sx lately, hernia repair, exploratory lap, and feels that scar tissue has possibly formed and is possibly causing issues -was seen in [facility] ER on 12/25/2024, Jose Carlson MD recommended MRI with and without contrast, this was not performed as of yet and not ordered; she would like to discuss this to see if this is needed -Patient has tried OTC tylenol, advil, mild effectiveness Please advise, she says she is trying to avoid the ER due to cost because it is so expensive, would like to know if she needs to be seen in the office. Surgeon has basically told her to come into this office, that they are no longer seeing her in their office anymore, and to go to the ER if she is having any further issues. She saw him for her post op appointment and then they signed off. Attempted to call patient, no answer. Left message asking for a return call. Darlene Cherry LPN documented in this encounter [facility] 02-19-2025 Telephone encounter Note Patient called in, gathered more information: -midline surgical incision on lower abdomen has a hard area that has popped up since Tuesday -skin is intact, warm, dry; no discharge -discomfort localized to midline, does not radiate; described as dull, achey; sometimes pulling but not as much -consistent pain but gets worse when she feels like she has to have a BM; she has had multiple abdominal sx lately, hernia repair, exploratory lap, and feels that scar tissue has possibly formed and is possibly causing issues -was seen in [facility] ER on 12/25/2024, Jose Carlson MD recommended MRI with and without contrast, this was not performed as of yet and not ordered; she would like to discuss this to see if this is needed -Patient has tried OTC tylenol, advil, mild effectiveness Please advise, she says she is trying to avoid the ER due to cost because it is so expensive, would like to know if she needs to be seen in the office. Surgeon has basically told her to come into this office, that they are no longer seeing her in their office anymore, and to go to the ER if she is having any further issues. She saw him for her post op appointment and then they signed off. [facility] 02-19-2025 Telephone encounter Note Attempted to call patient, no answer. Left message asking for a return call. Darlene Cherry LPN [facility] 02-19-2025 Telephone encounter Note Please see below. There is a previous encounter on 12/25 stating patient should go to ED for her abdominal symptoms. Patient is having stomach pain again. Please let me know if I need to schedule her and I can do so. Thank you ! Galina Lund [facility] 02-19-2025 Miscellaneous Notes Please see below. There is a previous encounter on 12/25 stating patient should go to ED for her abdominal symptoms. Patient is having stomach pain again. Please let me know if I need to schedule her and I can do so. Thank you ! Galina Lund documented in this encounter [facility] 12-25-2024 Hospital Discharge instructions Alayna Curry DO - 12/25/2024 7:39 PM EDT You were seen in the emergency department for abdominal pain. Your imaging was reassuring that there is no acute process causing this pain. You were given refills of your pain medication as well as Phenergan. Please call your surgeon's office in the morning to set up a follow-up appointment and have close follow-up with them. If your abdominal pain worsens please return to the emergency department. Your imaging did note a left renal lesion that was seen on previous imaging and does appear to have increased in size. MRI imaging should be performed on an outpatient basis to better visualize this lesion. Please follow-up with your primary care physician for this imaging. documented in this encounter [facility] 12-25-2024 Telephone encounter Note Noted and agree with nursing recommendation. [facility] 12-25-2024 Miscellaneous Notes Noted and agree with nursing recommendation. documented in this encounter [facility] 11-23-2024 Emergency department Note Pt voices understanding to go to the pharmacy listed on discharge paperwork to pickup driver prescriptions listed on paperwork. Pt verbalizes understanding to take as prescribed and if has any questions to speak with pharmacist prior to leaving pharmacy. [facility] 11-23-2024 Emergency department Note Pt voices understanding to go to the pharmacy listed on discharge paperwork to pickup driver prescriptions listed on paperwork. Pt verbalizes understanding to take as prescribed and if has any questions to speak with pharmacist prior to leaving pharmacy. EMERGENCY DEPARTMENT ENCOUNTER Pt Name: Mel Wall Birthdate 1985 Date of evaluation: 11/23/2024 ED Provider: Corky Plummer MD CHIEF COMPLAINT Chief Complaint Patient presents with Abdominal Pain Generalized abd pain 8/10 since this AM, pt had a hernia repair on 08/07 and recently had an abdominal drain that came out. Denies dysuria, +N/+V/-D. LBM was last night, pt states it was watery. Denies fevers/chills HISTORY OF PRESENT ILLNESS (Location/Symptom, Timing/Onset, Context/Setting, Quality, Duration, Modifying Factors, Severity) Note limiting factors. I wore appropriate PPE for the entirety of this encounter. HPI Mel Wall is a 39 y.o. who presents to the emergency department with chief complaint of abdominal pain. Patient states that she had an abdominal hernia repair back in July. She had a fluid collection and had a drain placed on Tuesday that then came out on Tuesday of this week by accident but they did an ultrasound and decided to wait did not put another one back in per the patient. Today she has had 3 episodes of vomiting with abdominal pain and feels like the hernia has popped back out. Denies any diarrhea constipation. Denies dysuria frequency urgency or hematuria. Denies fever. Nursing Notes were reviewed. Limitations to history: None Outside historians: None REVIEW OF SYSTEMS Review of Systems Pertinent positives and negatives as per HPI. 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 Partial obstruction of small intestine (HCC) 06/13/2024 SURGICAL HISTORY Past Surgical History: Procedure Laterality Date APPENDECTOMY BILIOPANCREATIC DIVERSION 10/23/2008 Sherie @ [place]; janel-en-y duodenojejunostomy for bile reflux CHOLECYSTECTOMY 02/2007 lap COLONOSCOPY N/A 11/29/2023 [facility]; repeat in 11/2033 EXPLORATORY LAPAROTOMY 06/10/2019 Veronica @ [facility]; ex lap, [facility] INCISION AND DRAINAGE OF WOUND 08/09/2013 [place]; I&D of surgical incision of LLQ INCISIONAL HERNIA REPAIR 10/20/2017 [facility]; open primary repair INCISIONAL HERNIA REPAIR 07/12/2018 [facility]; open w/ mesh INCISIONAL HERNIA REPAIR 09/26/2018 [place]; lap w/ mesh INCISIONAL HERNIA REPAIR 03/11/2020 [facility]; repair w/ mesh excision, mesh replacement ([facility] Mesh w/ Echo), WAI INCISIONAL HERNIA REPAIR 07/19/2015 [facility]; open repair w/ mesh INCISIONAL HERNIA REPAIR 08/07/2024 [facility]; an open recurrent repair w/ mesh, WAI, TAR, removal of infarcted cecal epiploic appendage PANNICULECTOMY (HISTORICAL) 08/07/2024 [place] SOFT TISSUE MASS EXCISION 08/02/2013 [facility]; STM excision of LLQ TONSILLECTOMY CURRENT MEDICATIONS Previous Medications ACETAMINOPHEN (TYLENOL) 325 MG TABLET Take 650 mg by mouth every 6 hours as needed for mild pain (1-3), moderate pain (4-6), headaches or fever. ALBUTEROL 108 (90 BASE) MCG/ACT INHALER Inhale 2 puffs every 4 hours as needed for wheezing or shortness of breath. FLUOXETINE (PROZAC) 20 MG CAPSULE Take 20 mg by mouth daily. ALLERGIES Ketorolac, Ondansetron, and Seasonal FAMILY HISTORY Family History Problem Relation Name Age of Onset Hypertension Father Diabetes Father SOCIAL HISTORY Social History Socioeconomic History Marital status: Tobacco Use Smoking status: Former Types: Cigarettes Smokeless tobacco: Never Substance and Sexual Activity Alcohol use: Not Currently Drug use: Yes Frequency: 2.0 times per week Types: Marijuana Comment: edibles Sexual activity: Not Currently Social Drivers of Health Financial Resource Strain: High Risk (04/24/2024) Overall Financial Resource Strain (CARDIA) Difficulty of Paying Living Expenses: Very hard Food Insecurity: Patient Declined (04/26/2024) Hunger Vital Sign Worried About Running Out of Food in the Last Year: Patient declined Ran Out of Food in the Last Year: Patient declined Recent Concern: Food Insecurity - Food Insecurity Present (04/24/2024) Hunger Vital Sign Worried About Running Out of Food in the Last Year: Often true Ran Out of Food in the Last Year: Often true Transportation Needs: Patient Declined (04/26/2024) PRAPARE - Transportation Lack of Transportation (Medical): Patient declined Lack of Transportation (Non-Medical): Patient declined Recent Concern: Transportation Needs - Unmet Transportation Needs (04/24/2024) PRAPARE - Transportation Lack of Transportation (Medical): Yes Lack of Transportation (Non-Medical): Yes Physical Activity: Sufficiently Active (04/24/2024) Exercise Vital Sign Days of Exercise per Week: 7 days Minutes of Exercise per Session: 60 min Stress: Stress Concern Present (04/24/2024) [employer] [place] [employer] - Occupational Stress Questionnaire Feeling of Stress : Very much Social Connections: Moderately Integrated (04/24/2024) Social Connection and Isolation Panel [NHANES] Frequency of Communication with Friends and Family: Twice a week Frequency of Social Gatherings with Friends and Family: Once a week Attends Adventism Services: More than 4 times per year Active Member of Clubs or Organizations: No Attends Club or Organization Meetings: More than 4 times per year Marital Status: Intimate Partner Violence: Patient Declined (04/26/2024) Humiliation, Afraid, Rape, and Kick questionnaire Fear of Current or Ex-Partner: Patient declined Emotionally Abused: Patient declined Physically Abused: Patient declined Sexually Abused: Patient declined Housing Stability: Unknown (04/26/2024) Housing Stability Vital Sign Unable to Pay for Housing in the Last Year: Patient declined Number of Times Moved in the Last Year: 1 Homeless in the Last Year: No Recent Concern: Housing Stability - High Risk (04/24/2024) Housing Stability Vital Sign Unable to Pay for Housing in the Last Year: Yes Number of Times Moved in the Last Year: 1 Homeless in the Last Year: No SCREENINGS PHYSICAL EXAM ED Triage Vitals [11/23/24 0714] Temp Heart Rate Resp BP -- 76 18 133/79 SpO2 Temp src Heart Rate Source Patient Position 96 % -- Monitor Lying BP Location FiO2 (%) Left arm -- General appearance: Appears uncomfortable, no acute distress. Psych: Awake alert and oriented 3. Pleasant and cooperative. Skin: Warm and dry. Neck: Supple. Cardiovascular: Regular rate and rhythm Lungs: Clear to auscultation bilaterally, no accessory muscle use, tachypnea, or retractions. Abdomen: Soft, tender to palpation from the upper through middle abdomen no lower abdominal tenderness. There is a large well-healed midline surgical incision with no drainage or dehiscence. There is tenderness and feels like there may be bowel underneath a portion above the umbilicus in the mid abdomen where she is predominantly tender, and nondistended, no rebound, rigidity, or guarding, positive bowel sounds 4 quadrants. Extremities: Warm and well perfused. NROM and SILT throughout upper and lower extermities. DIAGNOSTIC RESULTS Interpretation per the Radiologist below, if available at the time of this note: CT abdomen pelvis w contrast Final Result 1. Loculated low-density fluid collection in the ventral abdominal subcutaneous tissues has slightly decreased in size since prior. This is favored to represent a postoperative seroma. 2. Indeterminant left renal cortical lesions, unchanged. Recommend follow-up with nonemergent renal mass protocol MRI. Report Dictated on Electronically Signed By: Zenaida Vargas MD Electronically Signed Date/Time: 11/23/2024 9:08 AM EST ED BEDSIDE ULTRASOUND: Performed by ED Physician - none LABS: Labs Reviewed COMPREHENSIVE METABOLIC PANEL - Abnormal Result Value SODIUM 139 POTASSIUM 4.3 CHLORIDE 110 (*) CARBON DIOXIDE 22 ANION GAP 7 UREA NITROGEN 14 CREATININE 0.65 GLUCOSE 103 (*) CALCIUM 8.9 AST (SGOT) 12 ALT 9 ALKALINE PHOSPHATASE 42 ALBUMIN 3.9 BILIRUBIN, TOTAL 0.2 TOTAL PROTEIN 6.9 eGFR >90.0 LIPASE - Abnormal LIPASE 101 (*) CBC WITH AUTO DIFFERENTIAL - Normal Auto WBC 7.0 RBC 4.43 Hemoglobin 13.6 Hematocrit 40.5 MCV 91.4 MCH 30.7 MCHC 33.6 RDW 12.4 Platelets 256 MPV 9.2 nRBC 0.0 Neutrophils Relative 68.2 Lymphocytes Relative 21.4 Monocytes Relative 7.4 Eosinophils Relative 2.3 Basophils Relative 0.4 Immature Grans % 0.3 Neutrophils Absolute 4.8 Lymphocytes Absolute 1.5 Monocytes Absolute 0.5 Eosinophils Absolute 0.2 Basophils Absolute 0.0 Immature Grans Absolute 0.0 All other labs were within normal range or not returned as of this dictation. EMERGENCY DEPARTMENT COURSE and DIFFERENTIAL DIAGNOSIS/MDM: Vitals: Vitals: 11/23/24 0711 11/23/24 0714 11/23/24 1005 11/23/24 1010 BP: 133/79 138/84 BP Location: Left arm Left arm Patient Position: Lying Sitting Pulse: 76 71 Resp: 18 16 Temp: 36.9 C (98.4 F) TempSrc: Temporal SpO2: 96% 97% Weight: 83 kg (183 lb) Height: 1.651 m (5' 5) The patient presented with a chief complaint of abdominal pain. The differential diagnosis associated with this patient's presentation includes recurrent abdominal wall hernia, abscess, seroma, obstruction. Our workup consisted of ordering/reviewing labs CT scan of the abdomen pelvis. Diagnoses as of 11/23/24 1211 Generalized abdominal pain Abdominal wall seroma, initial encounter Discussions with other clinicians: Section Housekeeper Patient's surgeon Dr. Taylor to discuss the CT findings and lab results and disposition plan with Phenergan and outpatient follow-up as well as return precautions as discussed with patient. ED Medications managed: Medications HYDROmorphone (Dilaudid) injection 0.5 mg (0.5 mg IntraVENous Given 11/23/24 0813) promethazine (Phenergan) injection 12.5 mg (12.5 mg IntraMUSCular Given 11/23/24 0816) iopamidol (Isovue-370) 76 % injection 75 mL (75 mL IntraVENous Given 11/23/24 0840) HYDROmorphone (Dilaudid) injection 1 mg (1 mg IntraVENous Given 11/23/24 0843) HYDROmorphone (Dilaudid) injection 1 mg (1 mg IntraVENous Given 11/23/24 1005) CRITICAL CARE TIME CONSULTS: None PROCEDURES: Unless otherwise noted below, none Procedures FINAL IMPRESSION 1. Generalized abdominal pain 2. Abdominal wall seroma, initial encounter DISPOSITION Discharge 11/23/2024 12:09:04 PM PATIENT REFERRED TO: No follow-up provider specified. DISCHARGE MEDICATIONS: New Prescriptions OXYCODONE-ACETAMINOPHEN (PERCOCET) 5-325 MG TABLET Take 1 tablet by mouth every 6 hours as needed for severe pain (7-10) for up to 5 days. PROMETHAZINE (PHENERGAN) 25 MG TABLET Take 1 tablet (25 mg) by mouth every 6 hours as needed for nausea or vomiting for up to 7 days. (Comment: Please note this report has been produced using speech recognition software and may contain errors related to that system including errors in grammar, punctuation, and spelling, as well as words and phrases that may be inappropriate. If there are any questions or concerns please feel free to contact the dictating provider for clarification.) Corky Plummer MD (electronically signed) Emergency Medicine Provider Corky Plummer MD 11/23/24 1212 documented in this encounter [facility] 11-23-2024 Physician Emergency department Note EMERGENCY DEPARTMENT ENCOUNTER Pt Name: Mel Wall Birthdate 1985 Date of evaluation: 11/23/2024 ED Provider: Corky Plummer MD CHIEF COMPLAINT Chief Complaint Patient presents with Abdominal Pain Generalized abd pain 8/10 since this AM, pt had a hernia repair on 08/07 and recently had an abdominal drain that came out. Denies dysuria, +N/+V/-D. LBM was last night, pt states it was watery. Denies fevers/chills HISTORY OF PRESENT ILLNESS (Location/Symptom, Timing/Onset, Context/Setting, Quality, Duration, Modifying Factors, Severity) Note limiting factors. I wore appropriate PPE for the entirety of this encounter. HPI Mel Wall is a 39 y.o. who presents to the emergency department with chief complaint of abdominal pain. Patient states that she had an abdominal hernia repair back in July. She had a fluid collection and had a drain placed on Tuesday that then came out on Tuesday of this week by accident but they did an ultrasound and decided to wait did not put another one back in per the patient. Today she has had 3 episodes of vomiting with abdominal pain and feels like the hernia has popped back out. Denies any diarrhea constipation. Denies dysuria frequency urgency or hematuria. Denies fever. Nursing Notes were reviewed. Limitations to history: None Outside historians: None REVIEW OF SYSTEMS Review of Systems Pertinent positives and negatives as per HPI. 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 Partial obstruction of small intestine (HCC) 06/13/2024 SURGICAL HISTORY Past Surgical History: Procedure Laterality Date APPENDECTOMY BILIOPANCREATIC DIVERSION 10/23/2008 Sherie @ [place]; janel-en-y duodenojejunostomy for bile reflux CHOLECYSTECTOMY 02/2007 lap COLONOSCOPY N/A 11/29/2023 [facility]; repeat in 11/2033 EXPLORATORY LAPAROTOMY 06/10/2019 Veronica @ [facility]; ex lap, [facility] INCISION AND DRAINAGE OF WOUND 08/09/2013 [facility]; I&D of surgical incision of LLQ INCISIONAL HERNIA REPAIR 10/20/2017 [place]; open primary repair INCISIONAL HERNIA REPAIR 07/12/2018 [facility]; open w/ mesh INCISIONAL HERNIA REPAIR 09/26/2018 [place]; lap w/ mesh INCISIONAL HERNIA REPAIR 03/11/2020 [facility]; repair w/ mesh excision, mesh replacement ([facility] Mesh w/ Echo), [facility] INCISIONAL HERNIA REPAIR 07/19/2015 [facility]; open repair w/ mesh INCISIONAL HERNIA REPAIR 08/07/2024 [place]; an open recurrent repair w/ mesh, WAI, TAR, removal of infarcted cecal epiploic appendage PANNICULECTOMY (HISTORICAL) 08/07/2024 [facility] SOFT TISSUE MASS EXCISION 08/02/2013 [place]; STM excision of LLQ TONSILLECTOMY CURRENT MEDICATIONS Previous Medications ACETAMINOPHEN (TYLENOL) 325 MG TABLET Take 650 mg by mouth every 6 hours as needed for mild pain (1-3), moderate pain (4-6), headaches or fever. ALBUTEROL 108 (90 BASE) MCG/ACT INHALER Inhale 2 puffs every 4 hours as needed for wheezing or shortness of breath. FLUOXETINE (PROZAC) 20 MG CAPSULE Take 20 mg by mouth daily. ALLERGIES Ketorolac, Ondansetron, and Seasonal FAMILY HISTORY Family History Problem Relation Name Age of Onset Hypertension Father Diabetes Father SOCIAL HISTORY Social History Socioeconomic History Marital status: Tobacco Use Smoking status: Former Types: Cigarettes Smokeless tobacco: Never Substance and Sexual Activity Alcohol use: Not Currently Drug use: Yes Frequency: 2.0 times per week Types: Marijuana Comment: edibles Sexual activity: Not Currently Social Drivers of Health Financial Resource Strain: High Risk (04/24/2024) Overall Financial Resource Strain (CARDIA) Difficulty of Paying Living Expenses: Very hard Food Insecurity: Patient Declined (04/26/2024) Hunger Vital Sign Worried About Running Out of Food in the Last Year: Patient declined Ran Out of Food in the Last Year: Patient declined Recent Concern: Food Insecurity - Food Insecurity Present (04/24/2024) Hunger Vital Sign Worried About Running Out of Food in the Last Year: Often true Ran Out of Food in the Last Year: Often true Transportation Needs: Patient Declined (04/26/2024) PRAPARE - Transportation Lack of Transportation (Medical): Patient declined Lack of Transportation (Non-Medical): Patient declined Recent Concern: Transportation Needs - Unmet Transportation Needs (04/24/2024) PRAPARE - Transportation Lack of Transportation (Medical): Yes Lack of Transportation (Non-Medical): Yes Physical Activity: Sufficiently Active (04/24/2024) Exercise Vital Sign Days of Exercise per Week: 7 days Minutes of Exercise per Session: 60 min Stress: Stress Concern Present (04/24/2024) [employer] [place] [employer] - Occupational Stress Questionnaire Feeling of Stress : Very much Social Connections: Moderately Integrated (04/24/2024) Social Connection and Isolation Panel [NHANES] Frequency of Communication with Friends and Family: Twice a week Frequency of Social Gatherings with Friends and Family: Once a week Attends Adventism Services: More than 4 times per year Active Member of Clubs or Organizations: No Attends Club or Organization Meetings: More than 4 times per year Marital Status: Intimate Partner Violence: Patient Declined (04/26/2024) Humiliation, Afraid, Rape, and Kick questionnaire Fear of Current or Ex-Partner: Patient declined Emotionally Abused: Patient declined Physically Abused: Patient declined Sexually Abused: Patient declined Housing Stability: Unknown (04/26/2024) Housing Stability Vital Sign Unable to Pay for Housing in the Last Year: Patient declined Number of Times Moved in the Last Year: 1 Homeless in the Last Year: No Recent Concern: Housing Stability - High Risk (04/24/2024) Housing Stability Vital Sign Unable to Pay for Housing in the Last Year: Yes Number of Times Moved in the Last Year: 1 Homeless in the Last Year: No SCREENINGS PHYSICAL EXAM ED Triage Vitals [11/23/24 0714] Temp Heart Rate Resp BP -- 76 18 133/79 SpO2 Temp src Heart Rate Source Patient Position 96 % -- Monitor Lying BP Location FiO2 (%) Left arm -- General appearance: Appears uncomfortable, no acute distress. Psych: Awake alert and oriented 3. Pleasant and cooperative. Skin: Warm and dry. Neck: Supple. Cardiovascular: Regular rate and rhythm Lungs: Clear to auscultation bilaterally, no accessory muscle use, tachypnea, or retractions. Abdomen: Soft, tender to palpation from the upper through middle abdomen no lower abdominal tenderness. There is a large well-healed midline surgical incision with no drainage or dehiscence. There is tenderness and feels like there may be bowel underneath a portion above the umbilicus in the mid abdomen where she is predominantly tender, and nondistended, no rebound, rigidity, or guarding, positive bowel sounds 4 quadrants. Extremities: Warm and well perfused. NROM and SILT throughout upper and lower extermities. DIAGNOSTIC RESULTS Interpretation per the Radiologist below, if available at the time of this note: CT abdomen pelvis w contrast Final Result 1. Loculated low-density fluid collection in the ventral abdominal subcutaneous tissues has slightly decreased in size since prior. This is favored to represent a postoperative seroma. 2. Indeterminant left renal cortical lesions, unchanged. Recommend follow-up with nonemergent renal mass protocol MRI. Report Dictated on Electronically Signed By: Zenaida Vargas MD Electronically Signed Date/Time: 11/23/2024 9:08 AM EST ED BEDSIDE ULTRASOUND: Performed by ED Physician - none LABS: Labs Reviewed COMPREHENSIVE METABOLIC PANEL - Abnormal Result Value SODIUM 139 POTASSIUM 4.3 CHLORIDE 110 (*) CARBON DIOXIDE 22 ANION GAP 7 UREA NITROGEN 14 CREATININE 0.65 GLUCOSE 103 (*) CALCIUM 8.9 AST (SGOT) 12 ALT 9 ALKALINE PHOSPHATASE 42 ALBUMIN 3.9 BILIRUBIN, TOTAL 0.2 TOTAL PROTEIN 6.9 eGFR >90.0 LIPASE - Abnormal LIPASE 101 (*) CBC WITH AUTO DIFFERENTIAL - Normal Auto WBC 7.0 RBC 4.43 Hemoglobin 13.6 Hematocrit 40.5 MCV 91.4 MCH 30.7 MCHC 33.6 RDW 12.4 Platelets 256 MPV 9.2 nRBC 0.0 Neutrophils Relative 68.2 Lymphocytes Relative 21.4 Monocytes Relative 7.4 Eosinophils Relative 2.3 Basophils Relative 0.4 Immature Grans % 0.3 Neutrophils Absolute 4.8 Lymphocytes Absolute 1.5 Monocytes Absolute 0.5 Eosinophils Absolute 0.2 Basophils Absolute 0.0 Immature Grans Absolute 0.0 All other labs were within normal range or not returned as of this dictation. EMERGENCY DEPARTMENT COURSE and DIFFERENTIAL DIAGNOSIS/MDM: Vitals: Vitals: 11/23/24 0711 11/23/24 0714 11/23/24 1005 11/23/24 1010 BP: 133/79 138/84 BP Location: Left arm Left arm Patient Position: Lying Sitting Pulse: 76 71 Resp: 18 16 Temp: 36.9 C (98.4 F) TempSrc: Temporal SpO2: 96% 97% Weight: 83 kg (183 lb) Height: 1.651 m (5' 5) The patient presented with a chief complaint of abdominal pain. The differential diagnosis associated with this patient's presentation includes recurrent abdominal wall hernia, abscess, seroma, obstruction. Our workup consisted of ordering/reviewing labs CT scan of the abdomen pelvis. Diagnoses as of 11/23/24 1211 Generalized abdominal pain Abdominal wall seroma, initial encounter Discussions with other clinicians: Section Housekeeper Patient's surgeon Dr. Taylor to discuss the CT findings and lab results and disposition plan with Phenergan and outpatient follow-up as well as return precautions as discussed with patient. ED Medications managed: Medications HYDROmorphone (Dilaudid) injection 0.5 mg (0.5 mg IntraVENous Given 11/23/24 0813) promethazine (Phenergan) injection 12.5 mg (12.5 mg IntraMUSCular Given 11/23/24 0816) iopamidol (Isovue-370) 76 % injection 75 mL (75 mL IntraVENous Given 11/23/24 0840) HYDROmorphone (Dilaudid) injection 1 mg (1 mg IntraVENous Given 11/23/24 0843) HYDROmorphone (Dilaudid) injection 1 mg (1 mg IntraVENous Given 11/23/24 1005) CRITICAL CARE TIME CONSULTS: None PROCEDURES: Unless otherwise noted below, none Procedures FINAL IMPRESSION 1. Generalized abdominal pain 2. Abdominal wall seroma, initial encounter DISPOSITION Discharge 11/23/2024 12:09:04 PM PATIENT REFERRED TO: No follow-up provider specified. DISCHARGE MEDICATIONS: New Prescriptions OXYCODONE-ACETAMINOPHEN (PERCOCET) 5-325 MG TABLET Take 1 tablet by mouth every 6 hours as needed for severe pain (7-10) for up to 5 days. PROMETHAZINE (PHENERGAN) 25 MG TABLET Take 1 tablet (25 mg) by mouth every 6 hours as needed for nausea or vomiting for up to 7 days. (Comment: Please note this report has been produced using speech recognition software and may contain errors related to that system including errors in grammar, punctuation, and spelling, as well as words and phrases that may be inappropriate. If there are any questions or concerns please feel free to contact the dictating provider for clarification.) Corky Plummer MD (electronically signed) Emergency Medicine Provider Corky Plummer MD 11/23/24 1212 [facility] 11-23-2024 Telephone encounter Note S: Patient spoke with [facility] nurse regarding incisional pain. B: Onset of symptoms/concern: 11/20/24 US guided drain placed then 2/12/25 fell out. Pt has a dressing to this site. A: Pt has pain to upper incision, pt rates as severe and constant. Breathing in deeply makes the pain worse. Pt has not taken any medication for the pain, yet difficulty taking due to nausea. Pt feels her hernia is coming in and out. Incision looks swollen. Denies fever, bleeding, widespread rash. R: Recommended [facility] ED for further evaluation. Patient understands care advice. No further needs at this time. Patient instructed to call back with new or worsening symptoms. Reason for Disposition Severe pain in the incision Protocols used: Post-Op Incision Symptoms and [id number]-QT [facility] 11-23-2024 Miscellaneous Notes S: Patient spoke with [facility] nurse regarding incisional pain. B: Onset of symptoms/concern: 11/20/24 US guided drain placed then 11/21/24 fell out. Pt has a dressing to this site. A: Pt has pain to upper incision, pt rates as severe and constant. Breathing in deeply makes the pain worse. Pt has not taken any medication for the pain, yet difficulty taking due to nausea. Pt feels her hernia is coming in and out. Incision looks swollen. Denies fever, bleeding, widespread rash. R: Recommended [facility] ED for further evaluation. Patient understands care advice. No further needs at this time. Patient instructed to call back with new or worsening symptoms. Reason for Disposition Severe pain in the incision Protocols used: Post-Op Incision Symptoms and [id number]-PM documented in this encounter [facility] 11-21-2024 Note Formatting of this n ote might be different from the original. I called back patient regarding drain that fell out. Left message for patient to discuss. Did leave in message that we would like her to keep her 1 pm appointment with us today. [facility] 11-21-2024 Miscellaneous Notes I called back patient regarding drain that fell out. Left message for patient to discuss. Did leave in message that we would like her to keep her 1 pm appointment with us today. documented in this encounter [facility] 11-20-2024 Note Formatting of this n ote might be different from the original. Left message. Patient to return tomorrow at 12:30 to check in for appointment for aspiration and removal of drainage catheter at 13:00. Left return # for questions or concerns. [facility] 11-20-2024 Miscellaneous Notes Left message. Patient to return tomorrow at 12:30 to check in for appointment for aspiration and removal of drainage catheter at 13:00. Left return # for questions or concerns. documented in this encounter [facility] 11-20-2024 Hospital Discharge instructions Larry Brown RN - 11/20/2024 11:49 AM EST If you have any questions or problems following your test/procedure, please call: [facility]: [phone] (7am-4pm) [facility]: [phone] (8am-3pm) After 4 pm call [phone] and ask for angiography radiologist longwall headgate operator. The following attachments cannot be sent through Care Everywhere.SCLEROSING DISCHARGE INSTRUCTIONSdocumented in this encounter [facility] 11-20-2024 Nurse Note Patient arrived to radiology department (dept) from same day surgery ([facility]) for ultrasound (US) guided drain placement and sclerosing. Dr. Cynthia Carlson MD present to discuss procedure with patient and informed consent obtained. Patient placed in supine position. Baseline vital signs obtained. Prior to initiating procedure, a timeout was performed with the provider noted above; and patient identity, history, allergies, ordered procedure, and current medications were reviewed. Fluid specimen obtained. Occlusive dressing applied to insertion/puncture site. See vital signs flowsheet for intra-procedural monitoring. Patient tolerated procedure well. Post procedure vital signs obtained. Patient taken to holding bay area to rotate positions for instilled sclerosing agent. Patient is to be discharged after an hour of bedrest from radiology department with drain left in place. [facility] 11-20-2024 Nurse Note Patient arrived to radiology department (dept) from same day surgery ([facility]) for ultrasound (US) guided drain placement and sclerosing. Dr. Cynthia Carlson MD present to discuss procedure with patient and informed consent obtained. Patient placed in supine position. Baseline vital signs obtained. Prior to initiating procedure, a timeout was performed with the provider noted above; and patient identity, history, allergies, ordered procedure, and current medications were reviewed. Fluid specimen obtained. Occlusive dressing applied to insertion/puncture site. See vital signs flowsheet for intra-procedural monitoring. Patient tolerated procedure well. Post procedure vital signs obtained. Patient taken to holding bay area to rotate positions for instilled sclerosing agent. Patient is to be discharged after an hour of bedrest from radiology department with drain left in place. Patient arrived to radiology department (dept) from same day surgery ([facility]) for procedure. [facility] was not able to obtain intravenous (IV) access prior to patient arrival to radiology dept. Procedure delayed until IV access could be obtained. An IV was placed successfully by Cynthia Brown RN and procedure performed after IV established. documented in this encounter [facility] 11-20-2024 Nurse Note Patient arrived to radiology department (dept) from same day surgery ([facility]) for procedure. [facility] was not able to obtain intravenous (IV) access prior to patient arrival to radiology dept. Procedure delayed until IV access could be obtained. An IV was placed successfully by Cynthia Brown RN and procedure performed after IV established. [facility] 11-20-2024 History and physical note [facility] Comprehensive PreProcedure History and Physical Consults Name: Mel Wall : 1985 (Age-39 y.o.) Date of Service: Pt seen/examined on 11/20/2024 Chief Complaint: 39 y.o. female who we are asked to see/evaluate Mel Wall for pre-procedure evaluation prior to US PROCEDURE - SEDATION. History Of Present Illness: HPI: Abdominal fluid collection Severity: Moderate Duration: >one month Review of systems negative except for items below: Past Medical History: Diagnosis Date Anxiety Bile reflux gastritis Bipolar affective ([facility]) Depression Morbid obesity, unspecified obesity type ([facility]) Omental infarction ([facility]) 07/10/2019 Partial obstruction of small intestine ([facility]) 06/13/2024 Patient Active Problem List Diagnosis Date Noted Anxiety 06/13/2024 Cyclic vomiting syndrome 06/13/2024 Elevated blood pressure reading without diagnosis of hypertension 06/13/2024 Gastroesophageal reflux disease 06/13/2024 Impacted cerumen 06/13/2024 Injury of foot 06/13/2024 Injury of right shoulder 06/13/2024 Narcotic drug use 06/13/2024 Obstructive sleep apnea syndrome 06/13/2024 Psychogenic hyperventilation 06/13/2024 Sepsis ([facility]) 06/13/2024 Shoulder pain 06/13/2024 Sinus tachycardia by electrocardiography 06/13/2024 Strain of knee 06/13/2024 Syncope 06/13/2024 Type 2 diabetes mellitus ([facility]) 06/13/2024 Hypokalemia due to excessive gastrointestinal loss of potassium 11/22/2022 Nausea, vomiting, and diarrhea 11/22/2022 Chronic post-traumatic stress disorder (PTSD) 05/31/2022 Mixed obsessional thoughts and acts 05/31/2022 Recurrent major depressive disorder, in partial remission (HCC) 05/31/2022 Pain 08/06/2019 Obesity, Class III, BMI 40-49.9 (morbid obesity) (HCC) 01/24/2018 Panic disorder with agoraphobia 11/05/2014 Social phobia 11/05/2014 Migraine with aura 11/09/2011 Headache 10/13/2011 Menstrual period late 10/13/2011 Morbid obesity (HCC) 09/15/2011 Depression 10/10/1999 Generalized anxiety disorder 10/10/1999 Past Surgical History: Procedure Laterality Date APPENDECTOMY BILIOPANCREATIC DIVERSION 10/23/2008 She[facility] @ [facility]; janel-en-y duodenojejunostomy for bile reflux CHOLECYSTECTOMY 02/2007 lap COLONOSCOPY N/A 11/29/2023 [facility]; repeat in 11/2033 EXPLORATORY LAPAROTOMY 06/10/2019 Veronica @ [facility]; ex lap, [facility] INCISION AND DRAINAGE OF WOUND 08/09/2013 [place]; I&D of surgical incision of LLQ INCISIONAL HERNIA REPAIR 10/20/2017 [facility]; open primary repair INCISIONAL HERNIA REPAIR 07/12/2018 [facility]; open w/ mesh INCISIONAL HERNIA REPAIR 09/26/2018 [place]; lap w/ mesh INCISIONAL HERNIA REPAIR 03/11/2020 ; repair w/ mesh excision, mesh replacement ([facility] Mesh w/ Echo), WAI INCISIONAL HERNIA REPAIR 07/19/2015 [facility]; open repair w/ mesh INCISIONAL HERNIA REPAIR 08/07/2024 [facility]; an open recurrent repair w/ mesh, WAI, TAR, removal of infarcted cecal epiploic appendage PANNICULECTOMY (HISTORICAL) 08/07/2024 [facility] SOFT TISSUE MASS EXCISION 08/02/2013 [facility]; STM excision of LLQ TONSILLECTOMY Family History Problem Relation Name Age of Onset Hypertension Father Diabetes Father Medications: Prior to Admission medications Medication Sig Start Date End Date Taking? Authorizing Provider acetaminophen (Tylenol) 325 MG tablet Take 650 mg by mouth every 6 hours as needed for mild pain (1-3), moderate pain (4-6), headaches or fever. 06/30/23 Yes Historical Provider, FLUoxetine (PROzac) 20 MG capsule Take 20 mg by mouth daily. 11/23/22 Yes Historical Provider, oxyCODONE-acetaminophen (Percocet) 5-325 MG tablet Take 1 tablet by mouth every 6 hours as needed for severe pain (7-10) for up to 3 doses. 10/05/24 Yes Tara Marroquin PA-C PROMETHAZINE HCL PO Take by mouth. Yes Historical Provider, albuterol 108 (90 Base) MCG/ACT inhaler Inhale 2 puffs every 4 hours as needed for wheezing or shortness of breath. Patient not taking: Reported on 11/20/2024 11/22/23 Historical Provider, Social history and Laboratory Data: Lab Results Component Value Date HGB 13.5 11/20/2024 HCT 40.1 11/20/2024 PLT 273 11/20/2024 WBC 5.6 11/20/2024 PROTIME 10.5 09/07/2024 INR <0.9 (L) 09/07/2024 NA 136 09/02/2024 K 3.9 09/02/2024 BUN 5 (L) 09/02/2024 CREATININE 0.38 (L) 09/02/2024 GLUCOSE 105 (H) 09/02/2024 GLUCOSE 93 01/30/2024 Social History Tobacco Use Smoking Status Former Types: Cigarettes Smokeless Tobacco Never Social History Substance and Sexual Activity Alcohol Use Not Currently Social History Substance and Sexual Activity Drug Use Yes Frequency: 2.0 times per week Types: Marijuana Comment: edibles BP 127/78 Pulse 87 Temp 36.3 C (97.4 F) (Temporal) Resp 16 Ht 1.651 m (5' 5) Wt 101 kg (223 lb) SpO2 98% BMI 37.11 kg/m Physical Examination: onstitutional: No apparent distress, well nourished, and in stable condition. Cardiac: Regular rate and rhythm Per PT Abdomen: Soft and nonacute Per Pt Pulmonary: Clear bilaterally and no wheezing Per pt Neuro: Moves extremities X4 with no tremors HEENT: No gross cranial nerve defects and anicteric sclera Skin: Skin warm and dry with no visible rashes Vascular: Adequate perfusion of extremities with no cyanosis Psych: Alert and oriented x3 with appropriate affect Lymphatics: No swelling of arms/hands with no pedal edema Neck: FROM with no JVD Additional Notes:None After review of the medical history and physical assessment, medications, allergies, patient's current medical condition, and labs, this patient is at acceptable risk for the planned procedure at this facility. Electronically signed by: Rafael Shelby MD, MD Date: 11/20/2024 at 7:55 AM [facility] [place] Phone: 11-20-2024 History and physical note [facility] Comprehensive PreProcedure History and Physical Consults Name: Mel Wall : 1985 (Age-39 y.o.) Date of Service: Pt seen/examined on 11/20/2024 Chief Complaint: 39 y.o. female who we are asked to see/evaluate Mel Wall for pre-procedure evaluation prior to US PROCEDURE - SEDATION. History Of Present Illness: HPI: Abdominal fluid collection Severity: Moderate Duration: >one month Review of systems negative except for items below: Past Medical History: Diagnosis Date Anxiety Bile reflux gastritis Bipolar affective ([facility]) Depression Morbid obesity, unspecified obesity type ([facility]) Omental infarction ([facility]) 07/10/2019 Partial obstruction of small intestine ([facility]) 06/13/2024 Patient Active Problem List Diagnosis Date Noted Anxiety 06/13/2024 Cyclic vomiting syndrome 06/13/2024 Elevated blood pressure reading without diagnosis of hypertension 06/13/2024 Gastroesophageal reflux disease 06/13/2024 Impacted cerumen 06/13/2024 Injury of foot 06/13/2024 Injury of right shoulder 06/13/2024 Narcotic drug use 06/13/2024 Obstructive sleep apnea syndrome 06/13/2024 Psychogenic hyperventilation 06/13/2024 Sepsis (HCC) 06/13/2024 Shoulder pain 06/13/2024 Sinus tachycardia by electrocardiography 06/13/2024 Strain of knee 06/13/2024 Syncope 06/13/2024 Type 2 diabetes mellitus (HCC) 06/13/2024 Hypokalemia due to excessive gastrointestinal loss of potassium 11/22/2022 Nausea, vomiting, and diarrhea 11/22/2022 Chronic post-traumatic stress disorder (PTSD) 05/31/2022 Mixed obsessional thoughts and acts 05/31/2022 Recurrent major depressive disorder, in partial remission (HCC) 05/31/2022 Pain 08/06/2019 Obesity, Class III, BMI 40-49.9 (morbid obesity) (HCC) 01/24/2018 Panic disorder with agoraphobia 11/05/2014 Social phobia 11/05/2014 Migraine with aura 11/09/2011 Headache 10/13/2011 Menstrual period late 10/13/2011 Morbid obesity (HCC) 09/15/2011 Depression 10/10/1999 Generalized anxiety disorder 10/10/1999 Past Surgical History: Procedure Laterality Date APPENDECTOMY BILIOPANCREATIC DIVERSION 10/23/2008 Nolviaajith @ [facility]; janel-en-y duodenojejunostomy for bile reflux CHOLECYSTECTOMY 02/2007 lap COLONOSCOPY N/A 11/29/2023 [facility]; repeat in 11/2033 EXPLORATORY LAPAROTOMY 06/10/2019 Veronica @ [facility]; ex lap, [facility] INCISION AND DRAINAGE OF WOUND 08/09/2013 [facility]; I&D of surgical incision of LLQ INCISIONAL HERNIA REPAIR 10/20/2017 [place]; open primary repair INCISIONAL HERNIA REPAIR 07/12/2018 [facility]; open w/ mesh INCISIONAL HERNIA REPAIR 09/26/2018 [facility]; lap w/ mesh INCISIONAL HERNIA REPAIR 03/11/2020 [facility]; repair w/ mesh excision, mesh replacement ([facility] Mesh w/ Echo), WAI INCISIONAL HERNIA REPAIR 07/19/2015 [facility]; open repair w/ mesh INCISIONAL HERNIA REPAIR 08/07/2024 [facility]; an open recurrent repair w/ mesh, WAI, TAR, removal of infarcted cecal epiploic appendage PANNICULECTOMY (HISTORICAL) 08/07/2024 [facility] SOFT TISSUE MASS EXCISION 08/02/2013 [place]; STM excision of LLQ TONSILLECTOMY Family History Problem Relation Name Age of Onset Hypertension Father Diabetes Father Medications: Prior to Admission medications Medication Sig Start Date End Date Taking? Authorizing Provider acetaminophen (Tylenol) 325 MG tablet Take 650 mg by mouth every 6 hours as needed for mild pain (1-3), moderate pain (4-6), headaches or fever. 06/30/23 Yes Historical Provider, FLUoxetine (PROzac) 20 MG capsule Take 20 mg by mouth daily. 11/23/22 Yes Historical Provider, oxyCODONE-acetaminophen (Percocet) 5-325 MG tablet Take 1 tablet by mouth every 6 hours as needed for severe pain (7-10) for up to 3 doses. 10/05/24 Yes Tara Marroquin PA-C PROMETHAZINE HCL PO Take by mouth. Yes Historical Provider, albuterol 108 (90 Base) MCG/ACT inhaler Inhale 2 puffs every 4 hours as needed for wheezing or shortness of breath. Patient not taking: Reported on 11/20/2024 11/22/23 Historical Provider, Social history and Laboratory Data: Lab Results Component Value Date HGB 13.5 11/20/2024 HCT 40.1 11/20/2024 PLT 273 11/20/2024 WBC 5.6 11/20/2024 PROTIME 10.5 09/07/2024 INR <0.9 (L) 09/07/2024 NA 136 09/02/2024 K 3.9 09/02/2024 BUN 5 (L) 09/02/2024 CREATININE 0.38 (L) 09/02/2024 GLUCOSE 105 (H) 09/02/2024 GLUCOSE 93 01/30/2024 Social History Tobacco Use Smoking Status Former Types: Cigarettes Smokeless Tobacco Never Social History Substance and Sexual Activity Alcohol Use Not Currently Social History Substance and Sexual Activity Drug Use Yes Frequency: 2.0 times per week Types: Marijuana Comment: edibles BP 127/78 Pulse 87 Temp 36.3 C (97.4 F) (Temporal) Resp 16 Ht 1.651 m (5' 5) Wt 101 kg (223 lb) SpO2 98% BMI 37.11 kg/m Physical Examination: onstitutional: No apparent distress, well nourished, and in stable condition. Cardiac: Regular rate and rhythm Per PT Abdomen: Soft and nonacute Per Pt Pulmonary: Clear bilaterally and no wheezing Per pt Neuro: Moves extremities X4 with no tremors HEENT: No gross cranial nerve defects and anicteric sclera Skin: Skin warm and dry with no visible rashes Vascular: Adequate perfusion of extremities with no cyanosis Psych: Alert and oriented x3 with appropriate affect Lymphatics: No swelling of arms/hands with no pedal edema Neck: FROM with no JVD Additional Notes:None After review of the medical history and physical assessment, medications, allergies, patient's current medical condition, and labs, this patient is at acceptable risk for the planned procedure at this facility. Electronically signed by: Rafael Shelby MD, MD Date: 11/20/2024 at 7:55 AM documented in this encounter [facility] 11-20-2024 Miscellaneous Notes Spoke with [facility] ok to send patient down without IV access. documented in this encounter [facility] [employer] 11-20-2024 Note Formatting of this n ote might be different from the original. Spoke with [facility] ok to send patient down without IV access. [facility] [employer] [facility] 11-20-2024 Note Formatting of this n ote might be different from the original. Spoke with [facility] ok to send patient down without IV access. [facility] [employer] 11-20-2024 Note [facility] [employer] [facility] 11-09-2024 Note Formatting of this n ote might be different from the original. Left message for patient. Reviewed instructions for procedure. Aware of arrival time at 0700 am to Same Day Surgery ([facility]) on 11/20/24, nothing to eat after 0000, may have clear liquids (black coffee, tea, juices without pulp, gatorade, gingerale or water) up until 2 hours prior to procedure, and call back # for questions and/or concerns. It is ok to take your morning medications except blood thinners as discussed with ordering physician. If you are taking any medication for diabetes, please discuss with your physician for instructions to follow prior to the scheduled procedure since you will not be eating at least 8 hours prior to the procedure. Will need a responsible adult family member or friend to drive you home after the procedure is completed. May not use public transportation unless accompanied by a responsible adult family member or friend. Directions given for Same Day Surgery. Follow signs around the hospital to Main Entrance which is located at [address] Turn onto [address] from [facility]. You may use [employer]. Each patient to receive one validation ticket for [employer]. It is also possible to park in the Main Parking Garage. Proceed to bridge into hospital and check in with Same Day Surgery. [facility] 11-09-2024 Miscellaneous Notes Left message for patient. Reviewed instructions for procedure. Aware of arrival time at 0700 am to Same Day Surgery (SDS) on 11/20/24, nothing to eat after 0000, may have clear liquids (black coffee, tea, juices without pulp, gatorade, gingerale or water) up until 2 hours prior to procedure, and call back # for questions and/or concerns. It is ok to take your morning medications except blood thinners as discussed with ordering physician. If you are taking any medication for diabetes, please discuss with your physician for instructions to follow prior to the scheduled procedure since you will not be eating at least 8 hours prior to the procedure. Will need a responsible adult family member or friend to drive you home after the procedure is completed. May not use public transportation unless accompanied by a responsible adult family member or friend. Directions given for Same Day Surgery. Follow signs around the hospital to Main Entrance which is located at [address] [facility] onto [address] from [facility]. You may use [employer]. Each patient to receive one validation ticket for [employer]. It is also possible to park in the Main Parking Garage. Proceed to bridge into hospital and check in with Same Day Surgery. documented in this encounter [facility] 11-08-2024 Note Addended by: ZA GUERRIER on: 11/08/2024 02:28 PM Modules accepted: Orders [facility] 11-08-2024 Miscellaneous Notes Addended by: ZA GUERRIER on: 11/08/2024 02:28 PM Modules accepted: Orders US reviewed - fluid collections present. Can proceed with US guided drainage if she wishes. Thanks. Radiology requires imaging for objective evidence of fluid collection prior to scheduling a procedure. An emergency room visit would be appropriate if she has concerning or unmanageable symptoms, such as fevers, chills, increasing pain, worsening nausea/emesis. If she is not experiencing these symptoms, then there is no need to present to the ER. She does not need to proceed with drainage if she does not want to. We know she has fluid within her abdominal wall, which is a common complication from a large hernia repair. We would recommend drainage and re-treatment with sclerosis to help treat this complication, however the alternative which is also appropriate, would be to let the drainage continue through her incision until her body heals and closes on its own. If she elects for this, she will need to keep the site clean with soap and water, and dressed to protect her clothing. With this, there is a risk of infection, however this can be monitored by symptoms and exam. If she starts to have redness throughout her abdomen, new fatigue/chills/fevers, this would be concerning. Otherwise, the situation remains stable and she has options for further treatment as above. Spoke to the patient. She's upset that it's just an US and not the drainage. She states she already owes [employer] a lot of money. I explained they need the US to see what they are working with and go from there. Pt states there is no doubt she needs to drain and there is a LOT> She asked if she should go to the emergency room if it gets worse. She stated there is a lot. I explained I would send off a note asking at what point she would require a emergency room visit. ARUN and Lorenza mejia (which she read) to submit a photo Us order placed. We would recommend US for re-evaluation of fluid collection. Is she able to send in a photo of her incision? Let me know if she'd like to proceed with US and repeat drainage and I can order. Thanks. Pt had EXPLORATORY LAPAROTOMY; RECURRENT INCARCERATED INCISIONAL HERNIA >10CM, MESH EXPLANT, REMOVAL OF ABDOMINAL MASS, TEMPORARY MESH, PREVENA WOUND VAC >50CM, CENTRAL PANNICULECTOMY -on 08/07/24 w/ Dr Taylor -pt called in stating her stomach is full of fluid. Has been about a week or 2. Now pressing severely on the incision. Pt noticed today her lower incision near navel is leaking (clear with a little green) -incision was closed prior to yesterday and now has reopened d/t pressure and fluid. -incision red, doesn't look infected. -discomfort and some pain from being so full of fluid documented in this encounter [facility] 11-08-2024 Telephone encounter Note US reviewed - fluid collections present. Can proceed with US guided drainage if she wishes. Thanks. [facility] 10-30-2024 Telephone encounter Note Radiology requires imaging for objective evidence of fluid collection prior to scheduling a procedure. An emergency room visit would be appropriate if she has concerning or unmanageable symptoms, such as fevers, chills, increasing pain, worsening nausea/emesis. If she is not experiencing these symptoms, then there is no need to present to the ER. She does not need to proceed with drainage if she does not want to. We know she has fluid within her abdominal wall, which is a common complication from a large hernia repair. We would recommend drainage and re-treatment with sclerosis to help treat this complication, however the alternative which is also appropriate, would be to let the drainage continue through her incision until her body heals and closes on its own. If she elects for this, she will need to keep the site clean with soap and water, and dressed to protect her clothing. With this, there is a risk of infection, however this can be monitored by symptoms and exam. If she starts to have redness throughout her abdomen, new fatigue/chills/fevers, this would be concerning. Otherwise, the situation remains stable and she has options for further treatment as above. [facility] 10-30-2024 Miscellaneous Notes Radiology requires imaging for objective evidence of fluid collection prior to scheduling a procedure. An emergency room visit would be appropriate if she has concerning or unmanageable symptoms, such as fevers, chills, increasing pain, worsening nausea/emesis. If she is not experiencing these symptoms, then there is no need to present to the ER. She does not need to proceed with drainage if she does not want to. We know she has fluid within her abdominal wall, which is a common complication from a large hernia repair. We would recommend drainage and re-treatment with sclerosis to help treat this complication, however the alternative which is also appropriate, would be to let the drainage continue through her incision until her body heals and closes on its own. If she elects for this, she will need to keep the site clean with soap and water, and dressed to protect her clothing. With this, there is a risk of infection, however this can be monitored by symptoms and exam. If she starts to have redness throughout her abdomen, new fatigue/chills/fevers, this would be concerning. Otherwise, the situation remains stable and she has options for further treatment as above. Spoke to the patient. She's upset that it's just an US and not the drainage. She states she already owes [facility] a lot of money. I explained they need the US to see what they are working with and go from there. Pt states there is no doubt she needs to drain and there is a LOT> She asked if she should go to the emergency room if it gets worse. She stated there is a lot. I explained I would send off a note asking at what point she would require a emergency room visit. LVM and Lorenza msg (which she read) to submit a photo Us order placed. We would recommend US for re-evaluation of fluid collection. Is she able to send in a photo of her incision? Let me know if she'd like to proceed with US and repeat drainage and I can order. Thanks. Pt had EXPLORATORY LAPAROTOMY; RECURRENT INCARCERATED INCISIONAL HERNIA >10CM, MESH EXPLANT, REMOVAL OF ABDOMINAL MASS, TEMPORARY MESH, PREVENA WOUND VAC >50CM, CENTRAL PANNICULECTOMY -on 08/07/24 w/ Dr Taylor -pt called in stating her stomach is full of fluid. Has been about a week or 2. Now pressing severely on the incision. Pt noticed today her lower incision near navel is leaking (clear with a little green) -incision was closed prior to yesterday and now has reopened d/t pressure and fluid. -incision red, doesn't look infected. -discomfort and some pain from being so full of fluid documented in this encounter [facility] 10-30-2024 Telephone encounter Note Spoke to the patient. She's upset that it's just an US and not the drainage. She states she already owes [facility] a lot of money. I explained they need the US to see what they are working with and go from there. Pt states there is no doubt she needs to drain and there is a LOT> She asked if she should go to the emergency room if it gets worse. She stated there is a lot. I explained I would send off a note asking at what point she would require a emergency room visit. [facility] 10-29-2024 Telephone encounter Note Aubree mejia (which she read) to submit a photo [facility] 10-29-2024 Miscellaneous Notes Aubree mejia (which she read) to submit a photo Us order placed. We would recommend US for re-evaluation of fluid collection. Is she able to send in a photo of her incision? Let me know if she'd like to proceed with US and repeat drainage and I can order. Thanks. Pt had EXPLORATORY LAPAROTOMY; RECURRENT INCARCERATED INCISIONAL HERNIA >10CM, MESH EXPLANT, REMOVAL OF ABDOMINAL MASS, TEMPORARY MESH, PREVENA WOUND VAC >50CM, CENTRAL PANNICULECTOMY -on 08/07/24 w/ Dr Taylor -pt called in stating her stomach is full of fluid. Has been about a week or 2. Now pressing severely on the incision. Pt noticed today her lower incision near navel is leaking (clear with a little green) -incision was closed prior to yesterday and now has reopened d/t pressure and fluid. -incision red, doesn't look infected. -discomfort and some pain from being so full of fluid documented in this encounter [facility] 10-29-2024 Telephone encounter Note Us order placed. [facility] 10-29-2024 Note We would recommend U S for re-evaluation of fluid collection. Is she able to send in a photo of her incision? Let me know if she'd like to proceed with US and repeat drainage and I can order. Thanks. [facility] 10-29-2024 Telephone encounter Note We would recommend US for re-evaluation of fluid collection. Is she able to send in a photo of her incision? Let me know if she'd like to proceed with US and repeat drainage and I can order. Thanks. [facility] 10-29-2024 Telephone encounter Note Pt had EXPLORATORY LAPAROTOMY; RECURRENT INCARCERATED INCISIONAL HERNIA >10CM, MESH EXPLANT, REMOVAL OF ABDOMINAL MASS, TEMPORARY MESH, PREVENA WOUND VAC >50CM, CENTRAL PANNICULECTOMY -on 08/07/24 w/ Dr Taylor -pt called in stating her stomach is full of fluid. Has been about a week or 2. Now pressing severely on the incision. Pt noticed today her lower incision near navel is leaking (clear with a little green) -incision was closed prior to yesterday and now has reopened d/t pressure and fluid. -incision red, doesn't look infected. -discomfort and some pain from being so full of fluid [facility] 10-24-2024 Telephone encounter Note PDMP checked and appropriate. [facility] 10-24-2024 Miscellaneous Notes PDMP checked and appropriate. documented in this encounter [facility] 10-08-2024 Nurse Note Patient in to CT room for repeat scan and drain removal. Ok to pull drain per Dr. Devine. Drain removed, tip intact. Patient denies discomfort. Patient educated on removal and discharged home. [facility] 10-08-2024 Nurse Note Patient in to CT room for repeat scan and drain removal. Ok to pull drain per Dr. Devine. Drain removed, tip intact. Patient denies discomfort. Patient educated on removal and discharged home. documented in this encounter [facility] 10-05-2024 Note Formatting of this n ote might be different from the original. Left message. Aware of arrival time 15-30 minutes prior to procedure scheduled for 11 am on 10/08/24. Check in with ground floor Radiology [employer] desk. Follow signs to the Main Entrance which is located at [address] Turn onto [address] from [facility]. Please park in the Main Parking Garage. You will take the bridge from parking deck into the hospital on the 1st floor. Proceed to ground floor and follow signs to Radiology. [facility] 10-05-2024 Miscellaneous Notes Left message. Aware of arrival time 15-30 minutes prior to procedure scheduled for 11 am on 10/08/24. Check in with ground floor Radiology [employer] desk. Follow signs to the Main Entrance which is located at [address] Turn onto [address] from [facility]. Please park in the Main Parking Garage. You will take the bridge from parking deck into the hospital on the 1st floor. Proceed to ground floor and follow signs to Radiology. documented in this encounter [facility] 10-05-2024 Nurse Note Patient arrived to radiology/ultrasound department for paracentesis. Sam Marroquin PA-C present to speak with patient. Informed consent obtained from patient prior to starting procedure. Patient placed in supine position. Baseline vital signs obtained. Prior to initiating procedure, a timeout was performed with the provider noted above; and patient identity, history, allergies, ordered procedure, and current medications were reviewed. Sam Marroquin PA-C drained approximately 200 mL of brown/red colored fluid from drain that was placed 10/04/2024. After fluid was drained, a 500 mg doxycycline syringe was instilled by Sam Marroquin PA-C. Patient tolerated procedure well. Post procedure vital signs obtained. Discharge instructions reviewed with patient. Patient verbalizes understanding and does not have any further questions at this time. Patient discharged to home via independent ambulation. [facility] 10-05-2024 Nurse Note Patient arrived to radiology/ultrasound department for paracentesis. Sam Marroquin PA-C present to speak with patient. Informed consent obtained from patient prior to starting procedure. Patient placed in supine position. Baseline vital signs obtained. Prior to initiating procedure, a timeout was performed with the provider noted above; and patient identity, history, allergies, ordered procedure, and current medications were reviewed. Sam Marroquin PA-C drained approximately 200 mL of brown/red colored fluid from drain that was placed 10/04/2024. After fluid was drained, a 500 mg doxycycline syringe was instilled by Sam Marroquin PA-C. Patient tolerated procedure well. Post procedure vital signs obtained. Discharge instructions reviewed with patient. Patient verbalizes understanding and does not have any further questions at this time. Patient discharged to home via independent ambulation. documented in this encounter [facility] 10-05-2024 Hospital Discharge instructions Larry Brown RN - 10/05/2024 8:55 AM EST Biopsy Discharge Instructions Your Recovery A biopsy is a procedure that is performed to obtain a small piece of tissue from an organ, bone, growth, or tumor. This tissue is sent to the lab where a pathologist can examine it to look for cancer or to diagnose other health problems. The area where the biopsy was taken may be sore for a couple days following the procedure. You may develop a bruise. This care sheet gives you a general idea about how long it will take for you to recover. However, each person recovers at a different pace. How can you care for yourself at home? Activity - Avoid heavy lifting or strenuous activities for 24-48 hours following your procedure Diet - You may resume your normal diet. If your stomach is upset, try bland, low-fat food like plain rice, broiled chicken, toast and yogurt. - Drink plenty of fluids. Medications - You may resume your home medications the day after the procedure unless otherwise instructed by your doctor. Care of Biopsy Site - Keep a bandage over the biopsy site for 24 hours. It is important to keep the site clean and dry during this time. - After 24 hours you may remove the bandage and clean the area with a mild soap. - You may apply heat or ice to the procedure site to help with any soreness. Alternate 20 minutes with heat or ice, and 20 minutes without. Be sure to use a barrier such as a towel between the ice or heat and your skin. - Monitor the site for signs of infection including redness, discharge or swelling. If you are concerned with the site, please contact us. When should you call for help? - For emergent concerns following your procedure please call 911 or go to the nearest emergency room. - For any non-emergent post-procedure questions or concerns, please give us a call between 8am and 5pm. - [facility] Radiology - [phone] - [facility] Radiology - [phone] - For questions after hours, please call [phone] and ask for the on-call Angiography Radiologist. When can I expect to get my test results? - It typically takes 1-2 weeks to get your biopsy results. - All biopsy results will be sent to your doctor that ordered the procedure. For any questions regarding test results, please contact your doctor s office. This handout is intended to provide general educational material to assist you in making informed decisions regarding your medical care. Specific questions about your unique medical conditions should be referred to your primary care physician. The following attachments cannot be sent through Care Everywhere.SCLEROSING DISCHARGE INSTRUCTIONSdocumented in this encounter [facility] 10-05-2024 Miscellaneous Notes Patient presented to ultrasound department for outpatient repeat sclerosing of abdominal wall seroma. Patient was instructed to attach drainage bag this morning, however she left drainage bag in [facility] yesterday. Drainage bag was attached when patient arrived. 200 mLs of red fluid was drained. 50 mL of doxycycline was instilled through catheter. Drain capped. Patient with complaints of severe abdominal pain and burning following procedure. Educated patient that this is typical with doxycycline administration. Percocet sent to patient pharmacy for pain control for the next 24 hours. Advised her to take tylenol as needed when she finishes percocet. She voiced understanding and agreed. Patient was sent home with a new drainage bag and instructed to attach bag at 3pm today. She was instructed to keep a daily log of drain output. She is scheduled for 11am on Tuesday for possible drain removal. All questions answered. Patient was discharged in stable condition. Dr. Ta updated. documented in this encounter [facility] 10-05-2024 Note Formatting of this n ote might be different from the original. Patient presented to ultrasound department for outpatient repeat sclerosing of abdominal wall seroma. Patient was instructed to attach drainage bag this morning, however she left drainage bag in [facility] yesterday. Drainage bag was attached when patient arrived. 200 mLs of red fluid was drained. 50 mL of doxycycline was instilled through catheter. Drain capped. Patient with complaints of severe abdominal pain and burning following procedure. Educated patient that this is typical with doxycycline administration. Percocet sent to patient pharmacy for pain control for the next 24 hours. Advised her to take tylenol as needed when she finishes percocet. She voiced understanding and agreed. Patient was sent home with a new drainage bag and instructed to attach bag at 3pm today. She was instructed to keep a daily log of drain output. She is scheduled for 11am on Tuesday for possible drain removal. All questions answered. Patient was discharged in stable condition. Dr. Ta updated. [employer] 10-05-2024 Note Formatting of this n ote might be different from the original. Patient presented to ultrasound department for outpatient repeat sclerosing of abdominal wall seroma. Patient was instructed to attach drainage bag this morning, however she left drainage bag in [facility] yesterday. Drainage bag was attached when patient arrived. 200 mLs of red fluid was drained. 50 mL of doxycycline was instilled through catheter. Drain capped. Patient with complaints of severe abdominal pain and burning following procedure. Educated patient that this is typical with doxycycline administration. Percocet sent to patient pharmacy for pain control for the next 24 hours. Advised her to take tylenol as needed when she finishes percocet. She voiced understanding and agreed. Patient was sent home with a new drainage bag and instructed to attach bag at 3pm today. She was instructed to keep a daily log of drain output. She is scheduled for 11am on Tuesday for possible drain removal. All questions answered. Patient was discharged in stable condition. Dr. Ta updated. [employer] 10-04-2024 Telephone encounter Note Contacted patient this afternoon to schedule her for repeat doxycycline administration for treatment of abdominal wall seroma. Appointment time at 8am. Patient did not answer. Left voicemail with callback number to confirm appointment time. Patient returned my call this afternoon and spoke with IR nurse. Patient okay with 8am appointment. Will have this added to ultrasound schedule. [employer] 10-04-2024 Miscellaneous Notes Contacted patient this afternoon to schedule her for repeat doxycycline administration for treatment of abdominal wall seroma. Appointment time at 8am. Patient did not answer. Left voicemail with callback number to confirm appointment time. Patient returned my call this afternoon and spoke with IR nurse. Patient okay with 8am appointment. Will have this added to ultrasound schedule. documented in this encounter [facility] 10-04-2024 Miscellaneous Notes Patient presented to the radiology department through [facility] for drain placement and sclerosing of abdominal wall seroma. 1.3 L of susan fluid was drained. 50 mL of doxycycline was instilled through catheter. Patient was provided instructions to attach drainage bag and drain doxycycline tomorrow morning. Patient to come back tomorrow morning as outpatient for repeat doxycycline administration. Patient is agreeable to this plan. Will call her this afternoon with appointment time for tomorrow. Reached out to ordering provider for lab orders for fluid. Fluid will be sent to lab for 72 hour hold. Discharge instructions reviewed with pt and pt's significant other Discharge information given to the patient. Patient and family verbalized understanding of information. All questions were answered before discharge. Patient ambulated, denies dizziness or nausea. Tolerating PO fluids and crackers. Vital signs are stable. Patient has changed and is being discharged home in a wheelchair with valuables. Pt given instructions on returning tomorrow from Ismael RICARDO documented in this encounter [facility] 10-04-2024 Note Formatting of this n ote might be different from the original. Patient presented to the radiology department through [facility] for drain placement and sclerosing of abdominal wall seroma. 1.3 L of susan fluid was drained. 50 mL of doxycycline was instilled through catheter. Patient was provided instructions to attach drainage bag and drain doxycycline tomorrow morning. Patient to come back tomorrow morning as outpatient for repeat doxycycline administration. Patient is agreeable to this plan. Will call her this afternoon with appointment time for tomorrow. Reached out to ordering provider for lab orders for fluid. Fluid will be sent to lab for 72 hour hold. [employer] Phone: 10-04-2024 Note Formatting of this n ote might be different from the original. Patient presented to the radiology department through [facility] for drain placement and sclerosing of abdominal wall seroma. 1.3 L of susan fluid was drained. 50 mL of doxycycline was instilled through catheter. Patient was provided instructions to attach drainage bag and drain doxycycline tomorrow morning. Patient to come back tomorrow morning as outpatient for repeat doxycycline administration. Patient is agreeable to this plan. Will call her this afternoon with appointment time for tomorrow. Reached out to ordering provider for lab orders for fluid. Fluid will be sent to lab for 72 hour hold. [employer] Phone: 10-04-2024 Hospital Discharge instructions Radha Leo RN - 10/04/2024 8:20 AM EST Drain Discharge Instructions Your Recovery A drain is a tube that is placed into a fluid collection in order to remove that fluid from your body. This may be done for an abscess, hematoma, cyst, or other fluid collection. Over time, the fluid collection will shrink and the drain may be removed by a doctor. The area where the drain was put into your skin may be sore for a few days following the procedure. You may also develop a bruise. This care sheet gives you a general idea about how long it will take for you to recover. However, each person recovers at a different pace. How can you care for yourself at home? Activity - Avoid heavy lifting or strenuous activities while your drain is in place. Diet - You may resume your normal diet. If your stomach is upset, try bland, low-fat food like plain rice, broiled chicken, toast and yogurt. - Drink plenty of fluids. Medications - You may resume your home medications the day after the procedure unless otherwise instructed by your doctor. Care of Drain Site - Keep a bandage over the drain site. It is important to keep the site clean and dry. - You should empty the fluid from the collection bag as needed. This may be emptied into the toilet. Be sure to record the date/time, amount, and appearance of the fluid each time you empty it. This information will be important for your doctor to know to decide when the drain can be removed. - Contact your doctor immediately if: - You notice any signs of infection including fever, increased pain, redness, warmth, discharge or swelling. - You experience bleeding or leaking around your drain site - You have a fast growing, painful lump at the drain site. - The drain becomes dislodged. When should you call for help? - For emergent concerns following your procedure please call 911 or go to the nearest emergency room. - For any non-emergent post-procedure questions or concerns, please give us a call between 8am and 5pm. - [facility] Radiology - [phone] - [facility]iology - [phone] - For questions after hours, please call [phone] and ask for the on-call Angiography Radiologist. This handout is intended to provide general educational material to assist you in making informed decisions regarding your medical care. Specific questions about your unique medical conditions should be referred to your primary care physician. The following attachments cannot be sent through Care Everywhere.Abscess Drainage, Percutaneous (Fluoroscopic, Ultrasonic, or CT Guidance) (Somali)SCLEROSING DISCHARGE INSTRUCTIONSdocumented in this encounter [facility] 10-04-2024 Note Formatting of this n ote might be different from the original. Discharge instructions reviewed with pt and pt's significant other [facility] [employer] 10-04-2024 Note Formatting of this n ote might be different from the original. Discharge information given to the patient. Patient and family verbalized understanding of information. All questions were answered before discharge. Patient ambulated, denies dizziness or nausea. Tolerating PO fluids and crackers. Vital signs are stable. Patient has changed and is being discharged home in a wheelchair with valuables. Pt given instructions on returning tomorrow from Ismael RICARDO [facility] [employer] 10-04-2024 Note Formatting of this n ote might be different from the original. Discharge instructions reviewed with pt and pt's significant other [facility] [employer] 10-04-2024 Note Formatting of this n ote might be different from the original. Discharge information given to the patient. Patient and family verbalized understanding of information. All questions were answered before discharge. Patient ambulated, denies dizziness or nausea. Tolerating PO fluids and crackers. Vital signs are stable. Patient has changed and is being discharged home in a wheelchair with valuables. Pt given instructions on returning tomorrow from Ismael RICARDO [facility] [employer] 10-04-2024 Nurse Note Patient arrived to Radiology department from [facility] for abdominal drain placement and seroma sclerosing. Dr. Ta in to discuss procedure with patient and informed consent obtained. Patient remains on cart and placed supine. deputy clerk of court applied, vital signs obtained and monitored throughout procedure. 8fr pigtail catheter to abdomen using US guidance by Dr. Ta. Stay fix and tegaderm dressing applied to site, which is benign. 1300mL susan fluid aspirated. 500 mg of doxycycline for pleurodesis (50mL) instilled to catheter by Ismael Marroquin PA-C. Patient tolerated procedure well. Home care of drainage catheter and drain reviewed with pt, who verbalizes understanding. Report given bedside and pt taken to [facility] via cart. [facility] [employer] 10-04-2024 Nurse Note Patient arrived to Radiology department from [facility] for abdominal drain placement and seroma sclerosing. Dr. Ta in to discuss procedure with patient and informed consent obtained. Patient remains on cart and placed supine. deputy clerk of court applied, vital signs obtained and monitored throughout procedure. 8fr pigtail catheter to abdomen using US guidance by Dr. Ta. Stay fix and tegaderm dressing applied to site, which is benign. 1300mL susan fluid aspirated. 500 mg of doxycycline for pleurodesis (50mL) instilled to catheter by Ismael Marroquin PA-C. Patient tolerated procedure well. Home care of drainage catheter and drain reviewed with pt, who verbalizes understanding. Report given bedside and pt taken to [facility] via cart. documented in this encounter [facility] 10-04-2024 Note [facility] Note Formatting of this n ote might be different from the original. Left message for patient. Reviewed instructions for procedure. Aware of arrival time at 0600 am to Same Day Surgery ([facility]) on 10/04/24, nothing to eat after 0000, may have clear liquids (black coffee, tea, juices without pulp, gatorade, gingerale or water) up until 2 hours prior to procedure, and call back # for questions and/or concerns. It is ok to take your morning medications except blood thinners as discussed with ordering physician. If you are taking any medication for diabetes, please discuss with your physician for instructions to follow prior to the scheduled procedure since you will not be eating at least 8 hours prior to the procedure. Will need a responsible adult family member or friend to drive you home after the procedure is completed. May not use public transportation unless accompanied by a responsible adult family member or friend. Directions given for Same Day Surgery. Follow signs around the hospital to Main Entrance which is located at [address] onto [address] from [facility]. You may use [employer]. Each patient to receive one validation ticket for [employer]. It is also possible to park in the Main Parking Garage. Proceed to bridge into hospital and check in with Same Day Surgery. [facility] 10-01-2024 Miscellaneous Notes Left message for patient. Reviewed instructions for procedure. Aware of arrival time at 0600 am to Same Day Surgery ([facility]) on 10/04/24, nothing to eat after 0000, may have clear liquids (black coffee, tea, juices without pulp, gatorade, gingerale or water) up until 2 hours prior to procedure, and call back # for questions and/or concerns. It is ok to take your morning medications except blood thinners as discussed with ordering physician. If you are taking any medication for diabetes, please discuss with your physician for instructions to follow prior to the scheduled procedure since you will not be eating at least 8 hours prior to the procedure. Will need a responsible adult family member or friend to drive you home after the procedure is completed. May not use public transportation unless accompanied by a responsible adult family member or friend. Directions given for Same Day Surgery. Follow signs around the hospital to Main Entrance which is located at [address] [facility] onto [address] from [facility]. You may use [employer]. Each patient to receive one validation ticket for [employer]. It is also possible to park in the Main Parking Garage. Proceed to bridge into hospital and check in with Same Day Surgery. documented in this encounter [facility] 09-28-2024 History of Present illness Narrative Images from the original note were not included. [facility] Advanced Laparoscopic Surgery Patient Name: Mel Wall Date: 09/28/24 S: Mel Wall follows up for a post operative visit after undergoing an open recurrent incisional hernia repair w/ mesh, WAI, TAR, panniculectomy, removal of infarcted cecal epiploic appendage on 08/07/24. She presented to the ER on 09/[address] which showed subcutaneous seroma. Underwent IR guided drainage with sclerosis on 09/07/24 and had drain removed on 09/14/24 with no evidence of persistent fluid. Today, she presents with increased pain and abdominal swelling, concerned that her seroma has returned. Cultures were taken at her last drainage and was sterile. Allergies Allergen Reactions Ketorolac Hives and Shortness of breath Other reaction(s): Hives Ondansetron Shortness of breath and Hives Other reaction(s): Hives, Respiratory distress Seasonal Itching and Other Stuffy nose Current Outpatient Medications Medication Sig Dispense Refill acetaminophen (Tylenol) 325 MG tablet Take 650 mg by mouth every 6 hours as needed for mild pain (1-3), moderate pain (4-6), headaches or fever. albuterol 108 (90 Base) MCG/ACT inhaler Inhale 2 puffs every 4 hours as needed for wheezing or shortness of breath. FLUoxetine (PROzac) 20 MG capsule Take 20 mg by mouth daily. PROMETHAZINE HCL PO Take by mouth. No current facility-administered medications for this visit. 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 Partial obstruction of small intestine (HCC) 06/13/2024 Past Surgical History: Procedure Laterality Date APPENDECTOMY BILIOPANCREATIC DIVERSION 10/23/2008 Sherie @ [facility]; janel-en-y duodenojejunostomy for bile reflux CHOLECYSTECTOMY 02/2007 lap COLONOSCOPY N/A 11/29/2023 [facility]; repeat in 11/2033 EXPLORATORY LAPAROTOMY 06/10/2019 Veronica @ [facility]; ex lap, WAI INCISION AND DRAINAGE OF WOUND 08/09/2013 [place]; I&D of surgical incision of LLQ INCISIONAL HERNIA REPAIR 10/20/2017 [facility]; open primary repair INCISIONAL HERNIA REPAIR 07/12/2018 [facility]; open w/ mesh INCISIONAL HERNIA REPAIR 09/26/2018 [place]; lap w/ mesh INCISIONAL HERNIA REPAIR 03/11/2020 [facility]; repair w/ mesh excision, mesh replacement ([facility] Mesh w/ Echo), WAI INCISIONAL HERNIA REPAIR 07/19/2015 [facility]; open repair w/ mesh INCISIONAL HERNIA REPAIR 08/07/2024 [facility]; an open recurrent repair w/ mesh, WAI, TAR, removal of infarcted cecal epiploic appendage PANNICULECTOMY (HISTORICAL) 08/07/2024 [facility] SOFT TISSUE MASS EXCISION 08/02/2013 [facility]; STM excision of LLQ TONSILLECTOMY O: BP 120/82 (BP Location: Left arm, Patient Position: Sitting, BP Cuff Size: Adult) Pulse 89 Temp 36.4 C (97.6 F) (Temporal) Ht 5' 5 (1.651 m) Wt 223 lb 14.4 oz (102 kg) LMP 08/27/2024 (Approximate) BMI 37.26 kg/m Physical Exam: The wounds are healing well. There is no evidence of infection, erythema or hernia; abdomen soft with obvious fluid wave, appropriately tender postop, no skin discoloration Pathology: Final Diagnosis A. ABDOMINAL SOFT TISSUE MASS, EXCISION: - FRAGMENT OF HEMORRHAGIC BENIGN ADIPOSE TISSUE WITH FAT NECROSIS B. MESH, REMOVAL: - SYNTHETIC MESH MATERIAL (GROSS DIAGNOSIS ONLY) C. HERNIA SAC, EXCISION: - BENIGN FIBROMEMBRANOUS TISSUE CONSISTENT WITH HERNIA SAC D. CENTRAL PANNUS, EXCISION: - BENIGN SKIN AND UNREMARKABLE ADIPOSE TISSUE Assessment/Plan Mel was seen today for post-op. Diagnoses and all orders for this visit: Encounter for postoperative care (Primary) Abdominal wall seroma, initial encounter - US guided percutaneous peritoneal or retroperitoneal fluid collection drainage; Future History of incisional hernia repair - US guided percutaneous peritoneal or retroperitoneal fluid collection drainage; Future Postoperative abdominal pain - US guided percutaneous peritoneal or retroperitoneal fluid collection drainage; Future Mel Wall is a 39 y.o. female presenting for postoperative evaluation after undergoing an open recurrent incisional hernia repair w/ mesh, WAI, TAR, panniculectomy, removal of infarcted cecal epiploic appendage on 08/07/24. She may advance diet as tolerated. She may increase their activity to a normal level yet refrain from lifting greater than 15# for one month after surgery. Will proceed with repeat US with drain placement and sclerosis again for treatment. Order placed. The patient was seen and examined independently and relevant data reviewed by myself. A full chart review was performed. Patient Care Team: Serafin Taylor DO as Surgeon (General Surgery) se documented in this encounter [facility] 09-21-2024 Telephone encounter Note Okay given to pharmacy to fill early due to extra doses taken during second drain placement post op. LAST RX PROVIDED and reads: 1 tablet every 8 hours as needed for 14 days THEN 1 tablet every 12 hours as needed for 14 days. THEN 1 tablet daily as needed for 7 days. MyChart message sent to patient detailing the above and letting her know that any further need for pain medication will be referred to pain management. [facility] 09-21-2024 Miscellaneous Notes Okay given to pharmacy to fill early due to extra doses taken during second drain placement post op. LAST RX PROVIDED and reads: 1 tablet every 8 hours as needed for 14 days THEN 1 tablet every 12 hours as needed for 14 days. THEN 1 tablet daily as needed for 7 days. MyChart message sent to patient detailing the above and letting her know that any further need for pain medication will be referred to pain management. documented in this encounter [facility] 09-14-2024 Miscellaneous Notes Pt came for drain check. No fluid found and drain removed by Dr gongora. Pt discharged from room. documented in this encounter [facility] 09-14-2024 Note Formatting of this n ote might be different from the original. Pt came for drain check. No fluid found and drain removed by Dr gongora. Pt discharged from room. [facility] 09-14-2024 Note Formatting of this n ote might be different from the original. Pt came for drain check. No fluid found and drain removed by Dr gongora. Pt discharged from room. [facility] 09-14-2024 Note [facility] 09-12-2024 Note Formatting of this n ote might be different from the original. Spoke with patient. Reviewed instructions for procedure. Aware of arrival time at 0800 am to Same Day Surgery ([facility]) on 09/14/24, nothing to eat after 0000, may have clear liquids (black coffee, tea, juices without pulp, gatorade, gingerale or water) up until 2 hours prior to procedure, and call back # for questions and/or concerns. It is ok to take your morning medications except blood thinners as discussed with ordering physician. If you are taking any medication for diabetes, please discuss with your physician for instructions to follow prior to the scheduled procedure since you will not be eating at least 8 hours prior to the procedure. Will need a responsible adult family member or friend to drive you home after the procedure is completed. May not use public transportation unless accompanied by a responsible adult family member or friend. Questions answered. Verbalized understanding. Directions given for Same Day Surgery. Follow signs around the hospital to Main Entrance which is located at [address] [facility] onto [address] from [facility]. You may use [employer]. Each patient to receive one validation ticket for [employer]. It is also possible to park in the Main Parking Garage. Proceed to bridge into hospital and check in with Same Day Surgery. [facility] 09-12-2024 Miscellaneous Notes Spoke with patient. Reviewed instructions for procedure. Aware of arrival time at 0800 am to Same Day Surgery ([facility]) on 09/14/24, nothing to eat after 0000, may have clear liquids (black coffee, tea, juices without pulp, gatorade, gingerale or water) up until 2 hours prior to procedure, and call back # for questions and/or concerns. It is ok to take your morning medications except blood thinners as discussed with ordering physician. If you are taking any medication for diabetes, please discuss with your physician for instructions to follow prior to the scheduled procedure since you will not be eating at least 8 hours prior to the procedure. Will need a responsible adult family member or friend to drive you home after the procedure is completed. May not use public transportation unless accompanied by a responsible adult family member or friend. Questions answered. Verbalized understanding. Directions given for Same Day Surgery. Follow signs around the hospital to Main Entrance which is located at [address] [facility] Turn onto [address] from [facility]. You may use [employer]. Each patient to receive one validation ticket for [employer]. It is also possible to park in the Main Parking Garage. Proceed to bridge into hospital and check in with Same Day Surgery. documented in this encounter [facility] 09-10-2024 Telephone encounter Note See MyChart [facility] 09-10-2024 Miscellaneous Notes See MyChart Patient left stating that she just got off the phone with Deisi with a date of 09/28 @ [employer] for an office visit but she stated that she has a drain in and she wanted to know if the drain is suppose to stay in until her appt. She also stated that Dr Taylor told her that she should be able to return to work today but states that she is still in pain especially with the drain. Please call patient to discuss. DP documented in this encounter [facility] 09-10-2024 Telephone encounter Note Patient left VM stating that she just got off the phone with Deisi with a date of 09/28 [place] for an office visit but she stated that she has a drain in and she wanted to know if the drain is suppose to stay in until her appt. She also stated that Dr Taylor told her that she should be able to return to work today but states that she is still in pain especially with the drain. Please call patient to discuss. DP [facility] 09-07-2024 Miscellaneous Notes Patient arrived on unit. Name and date verified. Attached to monitors. Vital signs stable. Family updated. 1115 - pt laying prone for instilled ATB 1135 - pt returned to semi-fowlers. Family at bedsid. Pt taking po food and water. Tolerating well. 1215 - Patient is A&O x4. States pain is at a tolerable level. Denies dizziness and nausea. IV removed without complication. All belongings returned and accounted for. DC instructions gone over with patient and family. All questions answered. Verbalized understanding. Ambulated with steady gait. documented in this encounter [facility] 09-07-2024 Note Formatting of this n ote might be different from the original. Patient arrived on unit. Name and date verified. Attached to monitors. Vital signs stable. Family updated. 1115 - pt laying prone for instilled ATB 1135 - pt returned to semi-fowlers. Family at bedsid. Pt taking po food and water. Tolerating well. 1215 - Patient is A&O x4. States pain is at a tolerable level. Denies dizziness and nausea. IV removed without complication. All belongings returned and accounted for. DC instructions gone over with patient and family. All questions answered. Verbalized understanding. Ambulated with steady gait. [facility] 09-07-2024 Note Formatting of this n ote might be different from the original. Patient arrived on unit. Name and date verified. Attached to monitors. Vital signs stable. Family updated. 1115 - pt laying prone for instilled ATB 1135 - pt returned to semi-fowlers. Family at bedsid. Pt taking po food and water. Tolerating well. 1215 - Patient is A&O x4. States pain is at a tolerable level. Denies dizziness and nausea. IV removed without complication. All belongings returned and accounted for. DC instructions gone over with patient and family. All questions answered. Verbalized understanding. Ambulated with steady gait. [facility] 09-07-2024 Nurse Note Patient arrived to radiology department from same day surgery ([facility]) for ultrasound (US) guided fluid drainage and drain placement. Dr. Cynthia Moura MD present to discuss procedure with patient and informed consent obtained. Patient placed in supine position. Baseline vital signs obtained. Prior to initiating procedure, a timeout was performed with the provider noted above; and patient identity, history, allergies, ordered procedure, and current medications were reviewed. Fluid specimen obtained. Specimen(s) sent to lab. Occlusive dressing applied to insertion/puncture site. See vital signs flowsheet for intra-procedural monitoring. Patient tolerated procedure well. Post procedure vital signs obtained. Turning instructions reviewed with patient for medication instillation/dwell. Patient educated on how to drain medication into closed suction drain by turning three-way stopcock after medication has dwelled for four to six hours. Patient verbalizes understanding and does not have any questions at this time. Patient experiencing pain after medication instilled into abdominal cavity. Dr. Cynthia Moura MD ordered additional medication prior to patient being transported to [facility]. Patient taken to same day surgery ([facility]) via stretcher. Report given face to face at bedside to [facility] RN. Discharge instructions regarding dwell time and drainage of medication after dwell time reinforced with patient upon arrival to [facility] alongside SDS RN. Patient verbalizes understanding of dwell time and also verbalizes how to drain medication into closed suction after dwell time is completed. [facility] 09-07-2024 Nurse Note Patient arrived to radiology department from same day surgery ([facility]) for ultrasound (US) guided fluid drainage and drain placement. Dr. Cynthia Moura MD present to discuss procedure with patient and informed consent obtained. Patient placed in supine position. Baseline vital signs obtained. Prior to initiating procedure, a timeout was performed with the provider noted above; and patient identity, history, allergies, ordered procedure, and current medications were reviewed. Fluid specimen obtained. Specimen(s) sent to lab. Occlusive dressing applied to insertion/puncture site. See vital signs flowsheet for intra-procedural monitoring. Patient tolerated procedure well. Post procedure vital signs obtained. Turning instructions reviewed with patient for medication instillation/dwell. Patient educated on how to drain medication into closed suction drain by turning three-way stopcock after medication has dwelled for four to six hours. Patient verbalizes understanding and does not have any questions at this time. Patient experiencing pain after medication instilled into abdominal cavity. Dr. Cynthia Moura MD ordered additional medication prior to patient being transported to [facility]. Patient taken to same day surgery ([facility]) via stretcher. Report given face to face at bedside to NASEEM RN. Discharge instructions regarding dwell time and drainage of medication after dwell time reinforced with patient upon arrival to [facility] alongside NASEEM RN. Patient verbalizes understanding of dwell time and also verbalizes how to drain medication into closed suction after dwell time is completed. documented in this encounter [facility] 09-07-2024 Hospital Discharge instructions Larry Brown RN - 09/07/2024 9:45 AM EST Learning About Drain Care What is a drain? A drain allows fluid to flow out into a collection bag outside the body. The drain is a thin plastic tube (catheter) that the doctor places in the area of fluid collection out through a drain site on your skin and into a collection bag. The bag may be attached to a belt or strapped to the leg. The fluid that comes out of the drain may look bloody at first, but it may change color. How long the drain stays in place depends on what caused the problem. Your doctor will discuss this with you. How can you care for your drain at home? Your doctor or ostomy nurse can answer any questions you have about caring for your drain or bag. When should you call for help? Call your doctor now or seek immediate medical care if: You have symptoms of infection, such as: Increased pain, swelling, warmth, or redness. Red streaks leading from the drain site. Pus/purulent drainage from the drain site. A fever. You see a sudden change in the color or smell of the drainage. The tube is coming loose at the drain site. You have new or worse belly pain. You have a fever. You are vomiting. You cannot pass stools or gas. Watch closely for changes in your health, and be sure to contact your doctor if: Drainage stops coming out of the tube. You do not get better as expected. Follow-up care is a solares part of your treatment and safety. Be sure to make and go to all appointments, and call your doctor if you are having problems. It's also a good idea to know your test results and keep a list of the medicines you take. The following attachments cannot be sent through Care Everywhere.How to Keep Track of Your Drainage (Somali)documented in this encounter [facility] 09-07-2024 Note [facility] 09-05-2024 Note Formatting of this n ote might be different from the original. Spoke with patient. Reviewed instructions for procedure. Aware of arrival time at 0800 am to Same Day Surgery ([facility]) on 09/07/24, nothing to eat after 0000, may have clear liquids (black coffee, tea, juices without pulp, gatorade, gingerale or water) up until 2 hours prior to procedure, and call back # for questions and/or concerns. It is ok to take your morning medications except blood thinners as discussed with ordering physician. If you are taking any medication for diabetes, please discuss with your physician for instructions to follow prior to the scheduled procedure since you will not be eating at least 8 hours prior to the procedure. Will need a responsible adult family member or friend to drive you home after the procedure is completed. May not use public transportation unless accompanied by a responsible adult family member or friend. Questions answered. Verbalized understanding. Directions given for Same Day Surgery. Follow signs around the hospital to Main Entrance which is located at [address] onto [address] from [address]. You may use [employer]. Each patient to receive one validation ticket for [employer]. It is also possible to park in the Main Parking Garage. Proceed to bridge into hospital and check in with Same Day Surgery. [facility] 09-05-2024 Miscellaneous Notes Spoke with patient. Reviewed instructions for procedure. Aware of arrival time at 0800 am to Same Day Surgery ([facility]) on 09/07/24, nothing to eat after 0000, may have clear liquids (black coffee, tea, juices without pulp, gatorade, gingerale or water) up until 2 hours prior to procedure, and call back # for questions and/or concerns. It is ok to take your morning medications except blood thinners as discussed with ordering physician. If you are taking any medication for diabetes, please discuss with your physician for instructions to follow prior to the scheduled procedure since you will not be eating at least 8 hours prior to the procedure. Will need a responsible adult family member or friend to drive you home after the procedure is completed. May not use public transportation unless accompanied by a responsible adult family member or friend. Questions answered. Verbalized understanding. Directions given for Same Day Surgery. Follow signs around the hospital to Main Entrance which is located at [address] Turn onto [address] from [address]. You may use [employer]. Each patient to receive one validation ticket for [employer]. It is also possible to park in the Main Parking Garage. Proceed to bridge into hospital and check in with Same Day Surgery. documented in this encounter [facility] [employer] 09-03-2024 Telephone encounter Note Left a karen Knox to see how she was feeling and to let her know if she wanted to get that scheduled she could call central scheduling at [phone]. If she wanted me to scheduled it to give me a call and give me an idea of her availability. I did let her know that I checked on plan central and no authorization is required for this test [facility] [employer] 09-03-2024 Miscellaneous Notes Left a karen Knox to see how she was feeling and to let her know if she wanted to get that scheduled she could call central scheduling at [phone]. If she wanted me to scheduled it to give me a call and give me an idea of her availability. I did let her know that I checked on plan central and no authorization is required for this test Reviewed CT from ER yesterday. Proceed with CT guided drainage of seroma. Order placed. D/w Dr. Miranda alatorre drainage, culture, and sclerosis per IR. documented in this encounter [facility] 09-03-2024 Telephone encounter Note Reviewed CT from ER yesterday. Proceed with CT guided drainage of seroma. Order placed. D/w Dr. Miranda alatorre drainage, culture, and sclerosis per IR. [facility] 09-02-2024 Hospital Discharge instructions Maricel Zamora PA-C - 09/02/2024 1:[address] shows seroma. Please follow-up with Dr. Taylor regarding this result. In the medical field, there is always a level of diagnostic uncertainty, even if this uncertainty is low. For this reason, it is important to immediately return to the emergency department if you have any new symptoms, worsening symptoms, change of symptoms, or if you have any other concerns. We would be happy to re-evaluate you. Otherwise, please take your medications as prescribed and follow-up as recommended. documented in this encounter [facility] 09-02-2024 Emergency department Note Pt had abdominal wall construction surgery on 08/08, had follow-up appointment on Tuesday and provider felt fluid in abdomen, advised pt to go to ER if things worsen or starts having pain/illness. Incision does not have any drainage, foul odor, or redness around site. Negative resp distress, positive full sentences, negative diaphoresis, positive steady gait. Times are approximate. documented in this encounter [facility] 09-02-2024 Emergency department Triage note Pt had abdominal wall construction surgery on 08/08, had follow-up appointment on Tuesday and provider felt fluid in abdomen, advised pt to go to ER if things worsen or starts having pain/illness. Incision does not have any drainage, foul odor, or redness around site. Negative resp distress, positive full sentences, negative diaphoresis, positive steady gait. Times are approximate. [facility] 08-31-2024 History of Present illness Narrative Images from the original note were not included. [facility]oscopic [facility] Patient Name: Mel Wall Date: 08/31/24 S: Mel Wall follows up for a post operative visit after undergoing an open recurrent incisional hernia repair w/ mesh, WAI, TAR, panniculectomy, removal of infarcted cecal epiploic appendage on 08/07/24. She is doing well without any major postoperative complications. Her pain control is well controlled and she is not asking for narcotic refills. Her bowel function has returned to normal without constipation or diarrhea. Her appetite is returning to normal and she does not report any dysphagia, nausea or vomiting. Overall, she states that she's doing alright. Has some significant, burning left sided pain after drain removal, but tolerable. Has noticed increase swelling of her lower abdomen. Presents for staple removal. Allergies Allergen Reactions Ketorolac Hives and Shortness of breath Other reaction(s): Hives Ondansetron Shortness of breath and Hives Other reaction(s): Hives, Respiratory distress Seasonal Itching and Other Stuffy nose Current Outpatient Medications Medication Sig Dispense Refill acetaminophen (Tylenol) 325 MG tablet Take 650 mg by mouth every 6 hours as needed for mild pain (1-3), moderate pain (4-6), headaches or fever. albuterol 108 (90 Base) MCG/ACT inhaler Inhale 2 puffs every 4 hours as needed for wheezing or shortness of breath. FLUoxetine (PROzac) 20 MG capsule Take 20 mg by mouth in the morning. ALPRAZolam XR (Xanax XR) 0.5 MG 24 hr tablet Take 1 tablet (0.5 mg) by mouth Daily as needed for anxiety (Use to slowly ween off of consistent use while in hospital) for up to 5 days. Do not crush, chew, or split. 5 tablet 0 methocarbamol (Robaxin) 750 MG tablet Take 1 tablet (750 mg) by mouth 3 times daily as needed for muscle spasms for up to 10 days. 30 tablet 0 phentermine (Adipex-P) 37.5 MG tablet Take 1 tablet (37.5 mg) by mouth every morning (before breakfast). 30 tablet 0 phentermine (Adipex-P) 37.5 MG tablet Take 1 tablet (37.5 mg) by mouth every morning (before breakfast). 30 tablet 0 No current facility-administered medications for this visit. 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 Partial obstruction of small intestine (HCC) 06/13/2024 Past Surgical History: Procedure Laterality Date APPENDECTOMY BILIOPANCREATIC DIVERSION 10/23/2008 [facility] @ [facility]; janel-en-y duodenojejunostomy for bile reflux CHOLECYSTECTOMY 02/2007 lap COLONOSCOPY N/A 11/29/2023 [facility]; repeat in 11/2033 EXPLORATORY LAPAROTOMY 06/10/2019 [facility] @ [facility]; ex lap, WAI INCISION AND DRAINAGE OF WOUND 08/09/2013 [facility]; I&D of surgical incision of LLQ INCISIONAL HERNIA REPAIR 10/20/2017 [facility]; open primary repair INCISIONAL HERNIA REPAIR 07/12/2018 [facility]; open w/ mesh INCISIONAL HERNIA REPAIR 09/26/2018 [facility]; lap w/ mesh INCISIONAL HERNIA REPAIR 03/11/2020 [facility]; repair w/ mesh excision, mesh replacement ([facility] Mesh w/ Echo), WAI INCISIONAL HERNIA REPAIR 07/19/2015 [facility]; open repair w/ mesh INCISIONAL HERNIA REPAIR 08/07/2024 [facility]; an open recurrent repair w/ mesh, WAI, TAR, removal of infarcted cecal epiploic appendage PANNICULECTOMY (HISTORICAL) 08/07/2024 [facility] SOFT TISSUE MASS EXCISION 08/02/2013 [facility]; STM excision of LLQ TONSILLECTOMY O: BP 123/84 (BP Location: Right arm, Patient Position: Sitting, BP Cuff Size: Adult long) Pulse 91 Temp 36.3 C (97.4 F) (Temporal) Ht 5' 5 (1.651 m) Wt 229 lb 4.8 oz (104 kg) BMI 38.16 kg/m Physical Exam: The wounds are healing well. There is no evidence of infection, erythema or hernia; abdomen soft, large fluid wave consistent with seroma; shilpa intact with mild reactive erythema Pathology: Final Diagnosis A. ABDOMINAL SOFT TISSUE MASS, EXCISION: - FRAGMENT OF HEMORRHAGIC BENIGN ADIPOSE TISSUE WITH FAT NECROSIS B. MESH, REMOVAL: - SYNTHETIC MESH MATERIAL (GROSS DIAGNOSIS ONLY) C. HERNIA SAC, EXCISION: - BENIGN FIBROMEMBRANOUS TISSUE CONSISTENT WITH HERNIA SAC D. CENTRAL PANNUS, EXCISION: - BENIGN SKIN AND UNREMARKABLE ADIPOSE TISSUE Assessment/Plan Mel was seen today for follow-up. Diagnoses and all orders for this visit: Encounter for postoperative care (Primary) - Cancel: CT abdomen pelvis w contrast; Future - CT abdomen pelvis wo IV contrast; Future Postoperative abdominal pain - Cancel: CT abdomen pelvis w contrast; Future - CT abdomen pelvis wo IV contrast; Future Abdominal fluid collection - Cancel: CT abdomen pelvis w contrast; Future - CT abdomen pelvis wo IV contrast; Future History of incisional hernia repair - Cancel: CT abdomen pelvis w contrast; Future - CT abdomen pelvis wo IV contrast; Future Mel Wall is a 39 y.o. female presenting for postoperative evaluation after undergoing an open recurrent incisional hernia repair w/ mesh, WAI, TAR, panniculectomy, removal of infarcted cecal epiploic appendage on 08/07/24. She may advance diet as tolerated. She may increase their activity to a normal level yet refrain from lifting greater than 15# for one month after surgery. All shilpa removed today and steri strips applied. Will obtain CT and drainage for large postop seroma. Follow-up in 2 weeks. The patient was seen and examined independently and relevant data reviewed by myself. A full chart review was performed. Patient Care Team: Serafin Taylor DO as Surgeon (General Surgery) se documented in this encounter [facility] 08-27-2024 Note HNO ID: [id number] Author: NANCI DIAZ APRN.[employer] Service: ? Author Type: Nurse Practitioner Type: Progress Notes Filed: 08/27/2024 11:22 Note Text: [facility] [address] [facility] / [address] [place], [place] [address] Virtual Visit (Video + Audio) Visit Date: August 27, 2024 Name: Mel Wall Date of : 1985 MRN/E #: [id number] This is a virtual encounter with both video- and audio-enabled technology initiated for an established patient, parent or guardian not originating from a related Evaluation AND Management service provided within the previous 7 days nor leading to an Evaluation AND Management service or procedure within the next 24 hours or soonest available appointment. The patient gave consent for this virtual visit. Chief Complaint: Follow Up (Post op hernia repair) Subjective Mel Wall is a 39 year old female here with the following complaint(s): Is 3 weeks out from surgery. Feels she is better, but pain is still bad. Is struggling with sleeping because she is hurting and it is hard to get comfortable. Anxiety is also high; FMLA has not kicked in yet so she is overwhelmed by all of that too. Has lost about 20 pounds since surgery. The surgeon also took some of the excess skin off. Is no longer taking Phentermine. Surgery was emergent and due to complications (uterus is attached to the lower stomach), her tummy tuck could not be fully completed. Is drinking ensure or other protein beverage, soups, some sandwiches, some pasta. Eating small amounts, but working on it. Has been nauseated, partly from surgery and partly secondary to pain. Surgeon did send her home on a Dilaudid wean plan in combination with Percocet; has cut those in at least half because they were so strong (2 mg) and she didn't like how she feels on them. Has been taking 2 Percocet every 4 hours. Did not realize the wean plan had started and was following surgeon's instructions for management. Cut back on Tuesday, and has been taking 1-2 every 6 hours. Bedtime is the hardest. Mel had asked her surgeon to communicate with this provider about the plan for her pain management; she is unsure why that did not happen. The history is provided by the patient. Review of Systems As noted in HPI. ALLERGIES Allergen Reactions Toradol [Ketorolac] Hives, Shortness of Breath Zofran [Ondansetron* Hives, Shortness of Breath Seasonal Allergies Itching, Other: See Comments Stuffy nose Current Outpatient Medications Medication Sig oxyCODONE-acetaminophen (PERCOCET) 5-325 mg tablet Take 1 tablet by mouth every 4 hours as needed for pain for 14 days, THEN 1 tablet every 6 hours as needed for pain for up to 14 days. FLUoxetine (PROZAC) 20 mg capsule Take 1 capsule by mouth once daily. promethazine (PHENERGAN) 25 mg suppository 1 Suppository by RECTAL route every 6 hours as needed. naloxone 4 mg/actuation nasal spray (NARCAN) Use 1 spray in one nostril as needed for overdose. May repeat every 2 to 3 min in alternating nostrils until medical assistance is available No current facility-administered medications for this visit. I have confirmed and edited as necessary the chief complaint, medications, past medical, family and social histories. Objective There were no vitals filed for this visit. All exam findings were noted using video- and audio-enabled technology. Physical Exam Vitals reviewed: No vital signs due to virtual visit. HENT: Head: Normocephalic and atraumatic. Nose: Nose normal. Mouth/Throat: Mouth: Mucous membranes are moist. Pharynx: Oropharynx is clear. Eyes: Conjunctiva/sclera: Conjunctivae normal. Cardiovascular: Comments: No apparent cyanosis or edema Pulmonary: Effort: Pulmonary effort is normal. Comments: Speaking in full sentences Abdominal: Comments: Vertical incision (extensive) with shilpa in tact. Clean and dry without erythema or drainage noted. Musculoskeletal: General: Normal range of motion. Cervical back: Normal range of motion. Skin: Comments: No apparent rash, lesion or bruising noted to exposed skin. Abdominal incision with shilpa intact. Clean, dry, and without erythema or drainage. Left sided incision from drain noted; scabbed over. Neurological: Mental Status: She is alert. Psychiatric: Attention and Perception: Attention normal. Mood and Affect: Mood is anxious. Affect is tearful (intermittently). Speech: Speech normal. Behavior: Behavior normal. Cognition and Memory: Cognition and memory normal. Judgment: Judgment normal. Results for orders placed or performed during the hospital encounter of 05/30/24 COMPREHENSIVE METABOLIC PANEL Result Value Ref Range Protein, Total 6.6 6.3 - 8.0 g/dL Albumin 4.3 3.9 - 4.9 g/dL Calcium, Total 9.2 8.5 - 10.2 mg/dL Bilirubin, Total 0.4 0.2 - (more content not included)... [facility] 08-27-2024 History of Present illness Narrative Images from the original note were not included. [facility] [address] [facility] / [address] [place] [address] Virtual Visit (Video + Audio) Visit Date: August 27, 2024 Name: Mel Wall Date of : 1985 MRN/E #: [id number] This is a virtual encounter with both video- and audio-enabled technology initiated for an established patient, parent or guardian not originating from a related Evaluation & Management service provided within the previous 7 days nor leading to an Evaluation & Management service or procedure within the next 24 hours or soonest available appointment. The patient gave consent for this virtual visit. Chief Complaint: Follow Up (Post op hernia repair) Subjective Mel Wall is a 39 year old female here with the following complaint(s): Is 3 weeks out from surgery. Feels she is better, but pain is still bad. Is struggling with sleeping because she is hurting and it is hard to get comfortable. Anxiety is also high; FMLA has not kicked in yet so she is overwhelmed by all of that too. Has lost about 20 pounds since surgery. The surgeon also took some of the excess skin off. Is no longer taking Phentermine. Surgery was emergent and due to complications (uterus is attached to the lower stomach), her tummy tuck could not be fully completed. Is drinking ensure or other protein beverage, soups, some sandwiches, some pasta. Eating small amounts, but working on it. Has been nauseated, partly from surgery and partly secondary to pain. Surgeon did send her home on a Dilaudid wean plan in combination with Percocet; has cut those in at least half because they were so strong (2 mg) and she didn't like how she feels on them. Has been taking 2 Percocet every 4 hours. Did not realize the wean plan had started and was following surgeon's instructions for management. Cut back on Tuesday, and has been taking 1-2 every 6 hours. Bedtime is the hardest. Mel had asked her surgeon to communicate with this provider about the plan for her pain management; she is unsure why that did not happen. The history is provided by the patient. Review of Systems As noted in HPI. ALLERGIES Allergen Reactions Toradol [Ketorolac] Hives, Shortness of Breath Zofran [Ondansetron* Hives, Shortness of Breath Seasonal Allergies Itching, Other: See Comments Stuffy nose Current Outpatient Medications Medication Sig oxyCODONE-acetaminophen (PERCOCET) 5-325 mg tablet Take 1 tablet by mouth every 4 hours as needed for pain for 14 days, THEN 1 tablet every 6 hours as needed for pain for up to 14 days. FLUoxetine (PROZAC) 20 mg capsule Take 1 capsule by mouth once daily. promethazine (PHENERGAN) 25 mg suppository 1 Suppository by RECTAL route every 6 hours as needed. naloxone 4 mg/actuation nasal spray (NARCAN) Use 1 spray in one nostril as needed for overdose. May repeat every 2 to 3 min in alternating nostrils until medical assistance is available No current facility-administered medications for this visit. I have confirmed and edited as necessary the chief complaint, medications, past medical, family and social histories. Objective There were no vitals filed for this visit. All exam findings were noted using video- and audio-enabled technology. Physical Exam Vitals reviewed: No vital signs due to virtual visit. HENT: Head: Normocephalic and atraumatic. Nose: Nose normal. Mouth/Throat: Mouth: Mucous membranes are moist. Pharynx: Oropharynx is clear. Eyes: Conjunctiva/sclera: Conjunctivae normal. Cardiovascular: Comments: No apparent cyanosis or edema Pulmonary: Effort: Pulmonary effort is normal. Comments: Speaking in full sentences Abdominal: Comments: Vertical incision (extensive) with shilpa in tact. Clean and dry without erythema or drainage noted. Musculoskeletal: General: Normal range of motion. Cervical back: Normal range of motion. Skin: Comments: No apparent rash, lesion or bruising noted to exposed skin. Abdominal incision with shilpa intact. Clean, dry, and without erythema or drainage. Left sided incision from drain noted; scabbed over. Neurological: Mental Status: She is alert. Psychiatric: Attention and Perception: Attention normal. Mood and Affect: Mood is anxious. Affect is tearful (intermittently). Speech: Speech normal. Behavior: Behavior normal. Cognition and Memory: Cognition and memory normal. Judgment: Judgment normal. Results for orders placed or performed during the hospital encounter of 05/30/24 COMPREHENSIVE METABOLIC PANEL Result Value Ref Range Protein, Total 6.6 6.3 - 8.0 g/dL Albumin 4.3 3.9 - 4.9 g/dL Calcium, Total 9.2 8.5 - 10.2 mg/dL Bilirubin, Total 0.4 0.2 - 1.3 mg/dL Alkaline Phosphatase 34 34 - 123 U/L AST 9 (L) 13 - 35 U/L ALT 11 7 - 38 U/L Glucose 115 (H) 74 - 99 mg/dL BUN 10 7 - 21 mg/dL Creatinine 0.62 0.58 - 0.96 mg/dL Sodium 139 136 - 144 mmol/L Potassium 4.0 3.7 - 5.1 mmol/L Chloride 107 98 - 107 mmol/L CO2 24 22 - 30 mmol/L Anion Gap 8 8 - 15 mmol/L Estimated Glomerular Filtration Rate 117 >=60 mL/min/1.73m LIPASE Result Value Ref Range Lipase 33 16 - 61 U/L COMPLETE BLOOD COUNT AND DIFFERENTIAL Result Value Ref Range WBC 7.26 3.70 - 11.00 k/uL RBC 4.08 3.90 - 5.20 m/uL Hemoglobin 12.7 11.5 - 15.5 g/dL Hematocrit 38.3 36.0 - 46.0 % MCV 93.9 80.0 - 100.0 fL MCH 31.1 26.0 - 34.0 pg MCHC 33.2 30.5 - 36.0 g/dL RDW-CV 12.0 11.5 - 15.0 % Platelet Count 255 150 - 400 k/uL MPV 8.8 (L) 9.0 - 12.7 fL Neutrophils % 65.8 % Abs Neut 4.78 1.45 - 7.50 k/uL Lymphocytes % 24.4 % Abs Lymph 1.77 1.00 - 4.00 k/uL Monocytes % 6.5 % Abs Charlton 0.47 <0.87 k/uL Eosinophils % 2.6 % Abs Eosin 0.19 <0.46 k/uL Basophils % 0.4 % Abs Baso 0.03 <0.11 k/uL Immature Granulocytes % 0.3 % Abs Immature Gran <0.03 <0.10 k/uL NRBC Absolute nRBC Diff Type Auto SEPSIS LACTATE Result Value Ref Range Sepsis Lactate 1.7 <=2.0 mmol/L Assessment / Plan ASSESSMENT/PLAN: 1. Follow-up examination - ICD9: V67.9, ICD10: Z09 (primary diagnosis) - post op from emergency ventral hernia repair on 08/07/2024. - overall is doing fairly well. Pain continues to be an issue, but is starting to improve. - is not due to return to work for about 3 more weeks; sees the surgeon this Tuesday (08/31/2024) and will find out release date at that time. - upon review, noted some scanned in documents from hospital admission - ECG and abdominal drawing of surgery, but not notes or communication from the surgeon to this provider. 2. Abdominal wall hernia - ICD9: 553.20, ICD10: K43.9 - status post repair. Will begin weaning Percocet today. Should be completely off of Percocet by October 27, 2024 or sooner. - OXYCODONE-ACETAMINOPHEN 5 MG-325 MG TABLET - PDMP checked and appropriate for how meds were being taken. Mel understands wean to start today. Can take an additional Discussed the above with the patient using shared decision-making. The patient is in agreement with the diagnostic and treatment plans. All questions were answered. Return in about 2 months (around 10/27/2024), or if symptoms worsen or fail to improve, for follow up anxiety. Nanci Diaz APRN-[facility] [phone] August 27, 2024 documented in this encounter [facility] 08-24-2024 History of Present illness Narrative [facility] - Surgery Patient Name: Mel Wall Date: 08/24/24 S: Mel Wall follows up for a post operative visit after undergoing open recurrent incisional hernia repair w/mesh, WAI, TAR, panniculectomy on 08/07/24. She is doing well without any major postoperative complications. Her pain control is well controlled and she is not asking for narcotic refills. Her bowel function has returned to normal without constipation or diarrhea. Her appetite is returning to normal and she does not report any dysphagia, nausea or vomiting. Allergies Allergen Reactions Ketorolac Hives and Shortness of breath Other reaction(s): Hives Ondansetron Shortness of breath and Hives Other reaction(s): Hives, Respiratory distress Seasonal Itching and Other Stuffy nose Current Outpatient Medications Medication Sig Dispense Refill acetaminophen (Tylenol) 325 MG tablet Take 650 mg by mouth every 6 hours as needed for mild pain (1-3), moderate pain (4-6), headaches or fever. albuterol 108 (90 Base) MCG/ACT inhaler Inhale 2 puffs every 4 hours as needed for wheezing or shortness of breath. FLUoxetine (PROzac) 20 MG capsule Take 20 mg by mouth in the morning. naloxone (Narcan) 4 mg/0.1 mL nasal spray Administer 1 spray (4 mg) into affected nostril(s) as needed for opioid reversal. May repeat every 2-3 minutes if needed, alternating nostrils, until medical assistance becomes available. 2 each 0 ALPRAZolam XR (Xanax XR) 0.5 MG 24 hr tablet Take 1 tablet (0.5 mg) by mouth Daily as needed for anxiety (Use to slowly ween off of consistent use while in hospital) for up to 5 days. Do not crush, chew, or split. 5 tablet 0 methocarbamol (Robaxin) 750 MG tablet Take 1 tablet (750 mg) by mouth 3 times daily as needed for muscle spasms for up to 10 days. 30 tablet 0 phentermine (Adipex-P) 37.5 MG tablet Take 1 tablet (37.5 mg) by mouth every morning (before breakfast). 30 tablet 0 phentermine (Adipex-P) 37.5 MG tablet Take 1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 repair with removal of abd mass. Prevena wound vac to abd. Two surgical drains present. Pt advanced to FLD today. She is from home with boyfriend; independent. Tcc will continue to follow for any dc needs. Care Managment Initial Assessment Date: 08/08/2024 Patient Name: Mel Wall : 1985 Patient Information Source of Information: Patient Cognition/Language: WFL - Within Functional Limits Permission given to speak with patient loan representative/caregiver as indicated: Confirmation of Payer with patient/family: Yes Payer Name: [employer] [place]: No Confirmation of Primary Care Physician: Confirmed PCP Name: Vicky Diaz Seen in last 2 years?: Yes Primary Caregiver: Self If assistance needed, confirmed caregiver ready, willing and able to care for patient at discharge: Confirmed with: Living Arrangements Current Residence: House Number of Floors 2 Number of Entry Steps: 5 or more Bed/Bath Levels: Both second floor Facility: Facility Name: Plan to Return: Lives with: Spouse/significant other Support Systems: Spouse/significant other, Parent, Family members, Friends/neighbors Activities of Daily Living Ambulation: Independent Bathing/Dressing: Independent Elimination/Continence/Toileting: Independent Feeding: Independent Who Assists with Activities of Daily Living: Instrumental Activities of Daily Living Prescription Coverage: Yes [facility] Medication Management: Independent Transportation/Shopping: Independent Transportation Mode: Car Needs Assistance with Transportation at Discharge: No Meal Preparation: Independent Laundry/Cleaning: Independent Finances/Bill Paying: Independent Communication: Independent Types of Care Services/Equipment Utilized Care Services: Dialysis Type: Durable Medical Equipment: DME Provider: Tj Patient's Goal/Discharge Plan Patient expects to be discharged to: home with s.o. Discharge Planning Actions: Continue to follow Patient's Choice Rights and [employer] and Collaborative Relationships Disclosed as Indicated for Post-Acute Care: Interdisciplinary Team Engagement: Social Work Referral for: Prison Return Additional Information: 39 yo female admitted for surgery on 08/07/24: Exploratory Lap, repair of recurrent incarcerated incisional hernia, and removal of abd mass with prevena wound vac. Pt still has brian cath and she has two surgical drains. Met with pt and explained role of tcc. Pt lives with her boyfriend. She is independent adls and uses no dme. Pt denies any needs from tcc at present. Anticipate dc home , possibly later today vs tomorrow. Tcc will continue to follow for dc needs. Radha Romeo RN Problem: Pain - Adult Goal: Verbalizes/displays adequate comfort level or baseline comfort level Outcome: Progressing Problem: Safety - Adult Goal: Free from fall injury Outcome: Progressing Problem: Discharge Planning Goal: Discharge to home or other facility with appropriate resources Outcome: Progressing Date: 08/07/2024 - 08/08/2024 Location: [facility] OR Name: Mel Wall, : 1985, Diagnosis Pre-op Diagnosis * Ventral hernia without obstruction or gangrene [K43.9] Post-op Diagnosis * Ventral hernia without obstruction or gangrene [K43.9] Procedures EXPLORATORY LAPAROTOMY; RECURRENT INCARCERATED INCISIONAL HERNIA >10CM, MESH EXPLANT, REMOVAL OF ABDOMINAL MASS, TEMPORARY MESH, PREVENA WOUND VAC >50CM, CENTRAL PANNICULECTOMY 23613 - LA EXPLORATORY LAPAROTOMY CELIOTOMY W/WO BIOPSY SPX Surgeons * [facility] - Primary Procedure Summary Anesthesia: General ASA: III Estimated Blood Loss: 100 mL Drains: Closed/Suction Drain RUQ (Active) Closed/Suction Drain LUQ (Active) Urethral Catheter Straight-tip (Active) Specimens ID Source Type Tests Collected By Collected At Frozen? Priority Lab ID 1 Abdominal Wall Tissue TISSUE EXAM [facility], 08/07/242122 No Routine Description: ABDOMINAL SOFT TISSUE MASS 2 Abdominal Wall Tissue TISSUE EXAM [facility], 08/07/24 215 No Description: MESH FOR GROSS Comment: FOR GROSS EXAMINATION 3 Abdominal Wall Tissue TISSUE EXAM [facility], 08/07/242206 No Routine Description: HERNIA SAC 4 Abdominal Wall Tissue TISSUE EXAM [facility], 08/07/24 2347 Routine Description: CENTRAL PANNUS Implants Type Name Action Serial No. Skin Substitute MESH SURG ENFORM PRE [id number] - [id number] - [id number] Implanted [id number] Staff: Tax Map Technician: Brennan Salas RN; Aye Melendez RN Relief Tax Map Technician: Regine Sher RN Scrub Person: Brady Hill; Jessa Caldwell LPN Findings: Epiploic appendage infarction Ventral hernia repair with anterior component separation with Enform Mesh Prevena wound vac Complications: None; patient tolerated the procedure well. Specimens Collected: Order Name Source Comment Collection Info Order Time BASIC METABOLIC PANEL Blood, Venous 08/08/2024 12:43 AM MAGNESIUM Blood, Venous 08/08/2024 12:43 AM CBC WITH AUTO DIFFERENTIAL Blood, Venous 08/08/2024 12:43 AM TISSUE EXAM Abdominal Wall Collected By: Serafin Taylor DO 08/07/2024 9:24 PM Wound Class: Class II: Clean-Contaminated Blood Products: None Prophylactic Antibiotics: Procedure appropriate prophylactic antibiotic(s) given within 1 hour of surgical incision (two hours if receiving Vancomycin or flouroquinolone) Cosigned by Serafin Taylor DO at 08/08/2024 9:15 AM EDT Images from the original note were not included. RODNEY BLEDSOE DO, [facility] LAPAROSCOPY, BARIATRIC AND ROBOTIC SURGERY [facility] OPERATIVE REPORT 08/08/24 PATIENT: Mel Wall DATE OF : 1985 PROCEDURE: OPEN RECURRENT (>10 CM) INCISIONAL HERNIA (INCARCERATED) REPAIR WITH LYSIS OF INTRAABDOMINAL ADHESIONS REQUIRING 40 ADDITIONAL MINUTES (Modifier 22) RIGHT ANTERIOR COMPONENT SEPARATION, MYOFASCIAL RELEASE, MYOCUTANEOUS FLAP (02236) LEFT ANTERIOR COMPONENT SEPARATION, MYOFASCIAL RELEASE, MYOCUTANEOUS FLAP (70635, Modifier 59) DEBRIDEMENT OF SKIN, MUSCLE, AND FASCIA with MESH REMOVAL (82134) CENTRAL PANNICULECTOMY (07226) IMPLANTATION OF ABSORBABLE MESH FOR DELAYED CLOSURE (96098) REMOVAL OF INFARCTED CECAL EPIPLOIC APPENDAGE (89854) NEGATIVE PRESSURE WOUND VAC THERAPY (PREVENA) >50 ( 38 cm x 3 cm x 1 cm) (54224) SURGEON: Serafin Taylor DO TRADE MARK ATTORNEY: Guy Polanco PRE-OPERATIVE DIAGNOSES: RECURRENT (>10 CM) INCISIONAL HERNIA (INCARCERATED) Abnormal CT scan of the abdomen and pelvis Abdominal Pain History of appendectomy History of biliopancreatic diversion for bile reflux History of exploratory laparotomy for intra-abdominal adhesions History of at least 5 Incisional hernia repairs with mesh placement and explant Morbid obesity due to excess calories, class III, BMI 36.61 POST-OPERATIVE DIAGNOSES: Same, findings appear to be consistent with epiploic appendagitis, there was significant phlegmon around the cecum, large mesh explanted, extensive intra-abdominal adhesions, operative findings appear to be 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 Patient had a biliopancreatic limb length of approximately 40 cm. The Jejunojejunostomy anastomosis is approximately 50 cm from the colonic mesentery. ANESTHESIA: General endotracheal, Transverse abdominis plane block FLUIDS: 2200 mL crystalloid ESTIMATED BLOOD LOSS: 50 mL URINE OUTPUT: 200 mL CONSENT: The patient was seen in the preoperative area. The details of the procedure were discussed including the risks, benefits, complications, alternatives, expected recovery and outcomes. The site of surgery was properly noted/marked if necessary per policy. INFECTION CONTROL: Procedure appropriate prophylactic antibiotic(s) given within 1 hour of surgical incision (two hours if receiving Vancomycin or flouroquinolone) Infection present: Phlegmon present at the organ space (e.g. abdominal or thoracic) tissue level. SPECIMENS: ID Type Source Tests Collected by Time 1 : ABDOMINAL SOFT TISSUE MASS Tissue Abdominal Wall TISSUE EXAM Serafin Taylor, 08/07/20242122 2 : MESH FOR GROSS; ABDOMINAL WALL Tissue Abdominal Wall TISSUE EXAM Serafin Miranda, 08/07/20242149 3 : HERNIA SAC Tissue Abdominal Wall TISSUE EXAM Serafin Taylor, 08/07/20242206 4 : CENTRAL PANNUS Tissue Abdominal Wall TISSUE EXAM Serafin Taylor DO 08/07/2024 1432 COMPLICATIONS: None; patient tolerated the procedure well. PREOPERATIVE MEDICATIONS: Pre-operative IV antibiotics: Zosyn INDICATIONS FOR PROCEDURE: The patient is a 39 y.o. female with a large RECURRENT (>10 CM) INCISIONAL HERNIA (INCARCERATED). The patient presented to the emergency room and had CT scan findings concerning for acute appendicitis. The patient's abdomen was peritoneal. The patient was evaluated and an exploratory laparotomy with abdominal wall reconstruction was recommended. The risks, benefits and options of the procedure and additional possible interventions were reviewed and all questions were answered to the patient's satisfaction. DESCRIPTION OF PROCEDURE: Time Out, Prepping and Draping The patient was transported to the operating room and identified by name and number. The patient was placed on the operating room table in the supine position and general endotracheal anesthesia was administered by members of the anesthesia team. Following placement of sequential compression devices, OG and brian catheter, the patients extremities were positioned and protected. The abdomen was prepped and draped in standard surgical fashion. An operating room team time out was performed confirming the identity of the patient and the planned procedure. Abdominal Entry, Evaluation, Adhesiolysis, Anatomy Assessment, Resection of Intra-Abdominal Mass Using a ten-blade scalpel, a midline incision was made from the xyphoid to the pubis along pre marked lines. Dissection was performed with electrocautery down to the level of the deep fascia. Limited lateral undermining was performed. Meticulous hemostatic technique was exercised throughout the procedure to minimize blood loss. The abdomen was then entered. While entering the abdomen, a large mesh was encountered. This did not appear infected and cultures were not taken. The mesh was explanted and passed off the table as specimen. The abdominal cavity was then inspected and significant adhesions to the anterior abdominal wall and small bowel was noted. Additionally, it appeared that the uterus was intimately adhesed to the anterior abdominal wall in the suprapubic position. The uterus and adhesions in this region were not disturbed. A modifier 22 was applied as 50 additional minutes of enterolysis was performed. Following this the small bowel was inspected and run from the cecum to the ligament of Treitz and no enterotomies were noted. Large intestine was examined and was grossly unremarkable. Next, the hernia was assessed and found to be a large incarcerated defect measuring 12 cm in total length. Next, we assessed the patient's previous biliary diversion. 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 From the colonic mesentery the Janel limb measured approximately 50 cm. The jejunojejunostomy was unremarkable. There was no mesenteric defect. There was no Petersons defect. The biliopancreatic limb measured approximately 40 cm in length. There appeared to be no torsion or twisting of either mesentery. Anastomosis was widely patent and unremarkable. Please refer to hand-drawn surgical diagram below. Next, we turned our attention to the abnormalities noted on CT scan in the right lower quadrant of the cecum. Inspection revealed findings that were consistent with epiploic appendagitis. It appeared that an epiploic appendage of the proximal cecum was severely twisted near the level of the colon resulting in a complete infarction of this appendage. Utilizing electrocautery, the appendage was carefully lysed and passed off the specimen. There was a significant amount of phlegmon and induration at the level of the cecum. Given the phlegmon, extensive lysis, explant of the mesh, and the significant mushrooming of the hernia onto the anterior sheath, the decision was made to proceed with an anterior component separation, primary suture closure, temporary mesh placement. Given the unclear course of the right lower quadrant phlegmon, the decision was made to not perform a retrorectus and posterior component separation, leaving these planes virgin should the patient require an additional hernia repair or posterior reconstruction in the future. RIGHT Anterior Component Separation Next, we proceeded with our right myofascial release. We then exposed the external oblique fascia just lateral to the rectus sheath from above the inguinal area towards the costal margin. Care was taken to limit underminding in order to preserve blood supply to the lateral abdominal tissues. We then incised the fascia just lateral to the rectus sheath, which was identified by pinching the abdominal wall after it was mobilized. Fat was visualized to be protruding from the clyde in the fascia. The incision was extended from the cephalad and caudad. Care was taken to keep the plane of dissection above any underlying muscle that was identified. The inguinal ligament was left intact. After incising the fascia, dissection was then carried out laterally in the plane underneath the external oblique fascia toward the anterior axillary line to create additional advancement of the midline abdominal fascia. It is to be noted that the patient poor quality of her external oblique muscles. LEFT Anterior Component Separation Next, we proceeded with our left myofascial release. We then exposed the external oblique fascia just lateral to the rectus sheath from above the inguinal area towards the costal margin. Care was taken to limit underminding in order to preserve blood supply to the lateral abdominal tissues. We then incised the fascia just lateral to the rectus sheath, which was identified by pinching the abdominal wall after it was mobilized. Fat was visualized to be protruding from the clyde in the fascia. The incision was extended from the cephalad and caudad. Care was taken to keep the plane of dissection above any underlying muscle that was identified. The inguinal ligament was left intact. After incising the fascia, dissection was then carried out laterally in the plane underneath the external oblique fascia toward the anterior axillary line to create additional advancement of the midline abdominal fascia. As noted the contralateral side, patient had poor quality of her external oblique muscles. Debridement of Skin, Muscle, Fascia - Non-Necrotizing We assessed the dermis, subcutaneous tissue, muscle and fascia. Wound edges appeared non-viable and Non-Necrotizing . We now proceeded with debridement of all non-viable dermis, subcutaneous tissue, muscle and fascia. This debridement was performed with a combination of sharp and electrocautery removal. Following debridement, all muscle and fascial edges appeared viable with bleeding and firing response to electrocautery. Hemostasis was obtained. Fascial Closure We now proceeded with anterior fascial closure. A #1 STRATAFIX symmetric PDS suture was run superiorly. This was repeated inferiorly until the defect was closed. Mesh Implantation Next, the fascial closure was assessed. It appeared excellent and tension-free. Given her substantial previous hernia history, the decision was made to proceed with an onlay mesh of 30 x 30 [place] Enform mesh. This mesh was placed in Ligia fashion and secured circumferentially with a continuous running #1 STRATAFIX suture. Following this, several absorber tack tackers were utilized to ensure that the mesh was then adequate apposition with the anterior sheath of the abdomen. Additionally, mesh placement fully covered the incision sites of the myocutaneous advancement flaps. Mesh apposition and hernia repair were then assessed. Repair and apposition appeared excellent. Two 19-Mauritan[place] Ivan drains were placed in the subcutaneous space. Central Panniculectomy Next, the anterior abdominal wall was assessed. There appeared to be substantial redundancy of the central abdominal subcutaneous tissue and dermis secondary to the large, now reduced, abdominal wall hernia. Given the redundancy of the tissue in this region, the decision was made to proceed with a central panniculectomy. Both edges of the incision were then assessed and marked to ensure it would meet in the midline margin tension free. These areas were marked. Next, skin flaps were excised utilizing a scalpel. The pannus was passed off the table as specimen. This region was copiously irrigated with several liters of warm saline and hemostasis was confirmed. Two of Vistaseal was applied to the surgical field. A preliminary sponge needle and insturment count was performed a 38 nd was correct. The skin flaps were approximated and sutured together in several layers: Running 3-0 Monocryl for armando's fascia and interrupted 3-0 Vicryl for the deep dermis. [place] were used to close the skin. An incisional vac (38 cm x 3 cm x 1 cm) was applied. Conclusion The needle, sponge and instrument counts were correct. The patient tolerated the procedure and the anesthesia well without any major complications. The peak airway pressures were observed and deemed within normal limits. The patients was transported to the post-anesthesia care unit in stable condition. I was present for the entire duration of the procedure. Surgical Anatomy Emergency Department Encounter [facility] EMERGENCY DEPT Patient: Mel Wall : 1985 Date of Evaluation: 08/07/2024 ED Supervising Physician: Monique Pritchard DO I personally evaluated Mel Wall and made/approved the management plan and take responsibility for the patient management. This will serve as my Supervisory note and shared attestation. I did perform a substantive portion of the visit including all aspects of the Medical Decision Making. I wore appropriate PPE for the entirety of this encounter. In brief, Mel Wall is a 39 y.o. that presents to the emergency department after transferred from [facility] secondary to concerns for a large hernia as well as CT scan being read as acute process in the setting of a prior appendectomy. She was given Zosyn as well as pain medication at [facility]. Transferred here for surgery evaluation. Focused exam: Alert, heart rate is regular, lungs are clear, abdomen is soft, large ventral hernia without overlying skin changes, no rebounding, guarding or rigidity Brief ED course/MDM: General Surgery evaluated the patient. They will take her to the OR for surgical repair. Diagnostics interpreted by me: Please see ED course Diagnoses as of 08/07/24 1049 Ventral hernia without obstruction or gangrene Bilateral renal stones I personally discussed the patient's management with other clinicians: none CRITICAL CARE TIME None All diagnostic, treatment, and disposition decisions were made by myself in conjunction with the Resident. I also supervised solares portions of any procedures performed by the Resident. For all further details of the patient's emergency department visit, please see their documentation. (Comment: Please note this report has been produced using speech recognition software and may contain errors related to that system including errors in grammar, punctuation, and spelling, as well as words and phrases that may be inappropriate. If there are any questions or concerns please feel free to contact the dictating provider for clarification.) Monique Pritchard DO [employer] Monique Pritchard DO 08/07/24 1049 documented in this encounter [facility] 08-13-2024 Telephone encounter Note PDMP checked and appropriate. Patient is now post op and we will begin weaning Percocet. Will continue with 1 tablet every 4 hours for 14 days, followed by 1 tablet every 6 hours for 14 days. Will continue to wean until off. If there are issues with weaning, will refer to pain management. [facility] 08-13-2024 Miscellaneous Notes PDMP checked and appropriate. Patient is now post op and we will begin weaning Percocet. Will continue with 1 tablet every 4 hours for 14 days, followed by 1 tablet every 6 hours for 14 days. Will continue to wean until off. If there are issues with weaning, will refer to pain management. Patient called requesting the following refill Refill(s) Requested: Requested Prescriptions Pending Prescriptions Disp Refills oxyCODONE-acetaminophen (PERCOCET) 5-325 mg tablet 200 tablet 0 Sig: Take 1-2 tablets by mouth every 4 hours as needed for pain for up to 30 days. ALLERGIES Allergen Reactions Toradol [Ketorolac] Hives, Shortness of Breath Zofran [Ondansetron* Hives, Shortness of Breath Seasonal Allergies Itching, Other: See Comments Stuffy nose (home) [phone] (cell) Last Office Visit Date: 05/04/2024 Last Distance Health Visit: Visit date not found Future Appointment: 08/21/2024 The patients preferred pharmacy has been captured for this encounter? yes Request is for script(s) to be escript to pharmacy. Josie Simmons LPN documented in this encounter [facility] 08-13-2024 Telephone encounter Note Patient called requesting the following refill Refill(s) Requested: Requested Prescriptions Pending Prescriptions Disp Refills oxyCODONE-acetaminophen (PERCOCET) 5-325 mg tablet 200 tablet 0 Sig: Take 1-2 tablets by mouth every 4 hours as needed for pain for up to 30 days. ALLERGIES Allergen Reactions Toradol [Ketorolac] Hives, Shortness of Breath Zofran [Ondansetron* Hives, Shortness of Breath Seasonal Allergies Itching, Other: See Comments Stuffy nose (home) [phone] (cell) Last Office Visit Date: 05/04/2024 Last Distance Health Visit: Visit date not found Future Appointment: 08/21/2024 The patients preferred pharmacy has been captured for this encounter? yes Request is for script(s) to be escript to pharmacy. Josie Simmons LPN [facility] 08-13-2024 History of Present illness Narrative Images from the original note were not included. PAGING: The Acute Pain Service providers are available exclusively via [employer]. APS does not utilize pagers. 08/13/2024 Discharge Recommendations: Please note patient is on very high dose of Percocet as outpatient per PCP. Long discussion had with patient and general surgery team about discharge planning. She has VV scheduled next week with PCP. Pt agreeable to the following discharge plan: Resume chronic Percocet PO 1-2 tablets q4h prn for mod / severe pain Use Dilaudid 4mg PO q6h prn for breakthrough severe pain between Percocet doses Robaxin 1500mg PO q8h scheduled Lyrica 50mg PO BID In addition, psychiatry has been consulted to assist with discharge recommendations for anxiety. Pt has been using Xanax PO BID PRN while inpatient. Appreciate the assistance of everyone to take care of Mel. Pain Management Adjuvants: 0700 --> 0700 08/09/2024 08/10/2024 08/11/24 08/12/24 Scheduled APAP 3g 4g 4g 3g Gabapentin 900mg 900mg 900mg 900mg Lidocaine patches Methocarbamol 2g 3g 4500mg PRN Hydromorphone IV 7.5mg 3.25mg 2.5mg 6.5mg Oxycodone 60mg Hydromorphone PO 31mg 30mg 36mg Assessment / Pain Management Plan: ROCIO sidhus above Thank you for the consult Acute Postsurgical Abdominal pain Multimodal pain regimen: BLOCK: tap 08/07/24 Order Percocet 1-2 tablets q4h PRN for mod / severe pain Order Dilaudid 4mg PO q6h PRN for severe breakthrough pain to be used in between Percocet doses Discontinue Gabapentin, order Lyrica 25mg PO BID Continue Methocarbamol 1500mg PO q8h scheduled Continue Lidocaine patch x 1. Cut and place as needed. Continue Naloxone 0.4 mg IVP prn opioid reversal. PRN if respiratory rate is less than 6/min and patient is difficult to arouse then notify physician STAT. Mix 9 mL of sodium chloride 0.9% with 0.4 mg (1 mL) of naloxone (NARCAN) in 10 mL syringe. (Note: dilution is 0.04 mg/mL) Give 0.08 mg (2 mL of special dilution), slow IV push, repeat up to 0.4 mg (10 mL) or until patient is responsive to physical stimulation and respiratory rate is equal to or greater than 6 breaths/min. Continue to observe, if no response within 3 minutes of administration of 0.4 mg (10 mL) total, repeat dose (0.4 mg as administered previously). Ventral Hernia s/p ex lap with ventral hernia repair with anterior component separation with enform mesh 08/07/24 See #1 The patient's medical history and physical assessment, medications, allergies, patient's current medical condition, imaging, and labs were reviewed as part of this consultation. Patient's Medications have been reviewed. PMH reviewed below Opioid Use, Acute on Chronic Reviewed and educated patient on responsible use of opioids: after surgery, it can be normal to experience pain. If it is mild and you can move about without great difficulty or discomfort, you may not need to take pain medication. It is very important to take your pain medication only as needed. Avoiding excessive or unnecessary medication, will enable you to progress your activity each day to improve your muscle tone and movement, deep breathing, digestion, circulation and your body's ability to heal itself. OARRS reviewed for past two years. (Recurrent opiates RX filled) Pain Management: PCP: Francy Opioid Tolerant, opioid dependent Pt is maintained on Percocet 5/325mg PO 6x daily by PCP for chronic abdominal pain Please consider this patient may require higher doses of pain medication in the acute post operative period due to baseline tolerance Using Dilaudid PO as pt is likely tolerant to oxycodone, and is on Fluoxetine which is a CYP2D6 inhibitor. This medication could limit the efficacy of oxycodone Anxiety, depression Is on Fluoxetine which is a CYP2D6 inhibitor. This medication could limit the efficacy of oxycodone Order Dilaudid 4mg PO q6h PRN For mod / severe pain Constipation At risk for opioid induced constipation Patient currently receiving opioids for pain management necessitating a bowel regimen. Recommend initiating scheduled Sennakot-S 8.6/50mg, 1 tablet PO BID. Would also recommend Milk of Magnesia 400mg/5ml, administer 30mL by mouth daily PRN. Plan discussed with patient who appears to understand and agrees. Chief Complaint: abdominal surgery HPI: We have been asked to see this 39 y.o. female for postoperative pain management s/p ex lap with ventral hernia repair with anterior component separation with enform mesh 08/07/[address] AP 08/07/24 VALERIANO, no pages. On arrival, pt sitting up in bed. Significant other at bedside. Tearful and frustrated with her pain control. Is tired, isn't sleeping. Clarified what she takes at home. Percocet 1-2 tablets depending on her pain level 6x daily. We discussed resuming that, and then using PO Dilaudid for breakthrough pain between doses. Agreeable to this plan. Does not like gabapentin and the way it makes her feel. Agreeable to starting Lyrica. Has been taking xanax BID while inpatient for anxiety. Agreeable to seeing psychiatry for homegoing recommendations for anxiety medications. APS does not prescribe or manage medications for anxiety. Going to continue robaxin, she gets a significant amount of relief from that medication. Much more calm by end of conversation. Wants to go home by afternoon. Offered her a TAP block, she politely declined. Denies f/c, cp, sob, n/v/d Pain Location: Abdomen Aggravating Factors: Moving Sedation score: 1: Awake and alert Pain Severity: severe Pain Quality: sharp Alleviating Factors: Rest/Pain medications REVIEW OF SYSTEMS: Pertinent positives as noted in the HPI. All other systems reviewed and negative. PHYSICAL EXAM: Vitals: BP 114/87 (BP Location: Left arm, Patient Position: Lying) Pulse 98 Temp 36.7 C (98.1 F) (Temporal) Resp 17 Ht 1.651 m (5' 5) Wt 99.8 kg (220 lb) SpO2 97% BMI 36.61 kg/m BMI Classification: Obese (BMI 30.0-39.9) General appearance: No apparent distress, appears stated age and cooperative. HEENT: Normal cephalic, atraumatic without obvious deformity. Pupils equal, round, and reactive to light. Extra ocular muscles intact. Conjunctivae/corneas clear. Neck: No jugular venous distention. Trachea midline. Cardiovascular: Peripheral pulses 2+ and equal in all extremities Respiratory: Unlabored respiratory effort. On room air Musculoskeletal: No clubbing, cyanosis or edema bilaterally. Full ROM of all extremities. Skin: Skin color, texture, turgor normal. Surgical incision c/d/I , wound vac intact with minimal output Neurologic: Neurovascularly intact without any focal sensory/motor deficits. Cranial nerves: II-XII intact, grossly non-focal. Psychiatric: Alert and orientedx3, thought content appropriate, normal insight ? Labs: Lab Results Component Value Date WBC 7.0 08/13/2024 HGB 10.3 (L) 08/13/2024 HCT 31.9 (L) 08/13/2024 MCV 94.9 08/13/2024 PLT 287 08/13/2024 Lab Results Component Value Date NA 134 (L) 08/13/2024 K 4.0 08/13/2024 CL 102 08/13/2024 CO2 28 08/13/2024 BUN 8 08/13/2024 CREATININE 0.47 (L) 08/13/2024 GLUCOSE 106 (H) 08/13/2024 CALCIUM 8.8 08/13/2024 PROT 6.8 08/09/2024 BILITOT 0.6 08/09/2024 ALKPHOS 60 08/09/2024 AST 52 (H) 08/09/2024 ALT 32 08/09/2024 PAGING: The Acute Pain Service providers are available exclusively via [employer]. APS does not utilize pagers. OPEP ordered QID. Patient refused first time but will try later. Cosigned by Karen Vicente RCP at 08/13/2024 8:58 AM EST Discussed pt with dr. taylor. changes made to medications. adm consulted. full follow up note to follow later today APS paged this morning for one time doses of pain medications on top of current regimen. APS has signed off due to general surgery ordering one time doses of pain medication on top of existing regimen. RN has patient on appropriate dosing schedule, alternating PO / IV every 2 hours. If patient is truly requesting this many one time doses, the next option would be a RESEARCH & ANALYTICS MANAGER, which was made clear on day 1 that she is not to have per Dr. taylor. She is on a very high dose of pain medications at home, so likely will exhibit some tolerance to pain medication. APS ordered oral dilaudid to try to trick her pain sensors in a way and she is also on the equivalent dose to compensate. Discharge recommendations in this provider's note 08/11/24. We will remain signed off. Thank you. Images from the original note were not included. PAGING: The Acute Pain Service providers are available exclusively via [employer]. APS does not utilize pagers. 08/11/2024 Discharge Recommendations: Please note patient is on a very high dose of opiates as outpatient per PCP. Dilaudid has been dosed to the equivalent dose of her Percocet. Long discussion had with patient about using discharge dilaudid prescription, putting percocet aside until this script is finished. She needs to follow up with PCP to talk about how to manage pain going forward. Because of her baseline tolerance, DC recommendations are slightly higher. Dilaudid 4-6mg PO q4-6h PRN for mod / severe pain Methocarbamol 1500mg PO q8h prn for muscle spasms Stool softeners Pain Management Adjuvants: 0700 --> 0700 08/09/2024 08/10/2024 Scheduled APAP 3g 4g Gabapentin 900mg 900mg Lidocaine patches Methocarbamol 2g PRN Hydromorphone IV 7.5mg 3.25mg Oxycodone 60mg Hydromorphone PO 31mg Assessment / Pain Management Plan: General surgery ordered 1x doses of pain medications overnight on top of APS orders without page to APS. APS policy to sign off. Multiple providers ordering pain meds could lead to error. DC recs above, discussed with patient. Signing off, thank you for the consult. Acute Postsurgical Abdominal pain Multimodal pain regimen: BLOCK: tap 08/07/24 Continue Hydromorphone 4-6 mg po q4h prn moderate to severe breakthrough pain. Continue Hydromorphone 0.25 mg - 0.5 mg IVP q4h prn moderate to severe breakthrough pain. Please utilize oral medications first. Continue Acetaminophen 1g po q6h scheduled ATC. Hepatic panel ordered Continue chronic Gabapentin 300 mg po TID Order methocarbamol 1500mg PO q8h scheduled Continue Lidocaine patch x 1. Cut and place as needed. Continue Naloxone 0.4 mg IVP prn opioid reversal. PRN if respiratory rate is less than 6/min and patient is difficult to arouse then notify physician STAT. Mix 9 mL of sodium chloride 0.9% with 0.4 mg (1 mL) of naloxone (NARCAN) in 10 mL syringe. (Note: dilution is 0.04 mg/mL) Give 0.08 mg (2 mL of special dilution), slow IV push, repeat up to 0.4 mg (10 mL) or until patient is responsive to physical stimulation and respiratory rate is equal to or greater than 6 breaths/min. Continue to observe, if no response within 3 minutes of administration of 0.4 mg (10 mL) total, repeat dose (0.4 mg as administered previously). Ventral Hernia s/p ex lap with ventral hernia repair with anterior component separation with enform mesh 08/07/24 See #1 The patient's medical history and physical assessment, medications, allergies, patient's current medical condition, imaging, and labs were reviewed as part of this consultation. Patient's Medications have been reviewed. PMH reviewed below Opioid Use, Acute on Chronic Reviewed and educated patient on responsible use of opioids: after surgery, it can be normal to experience pain. If it is mild and you can move about without great difficulty or discomfort, you may not need to take pain medication. It is very important to take your pain medication only as needed. Avoiding excessive or unnecessary medication, will enable you to progress your activity each day to improve your muscle tone and movement, deep breathing, digestion, circulation and your body's ability to heal itself. OARRS reviewed for past two years. (Recurrent opiates RX filled) Pain Management: PCP: Francy Opioid Tolerant, opioid dependent Pt is maintained on Percocet 5/325mg PO 6x daily by PCP for chronic abdominal pain Please consider this patient may require higher doses of pain medication in the acute post operative period due to baseline tolerance Using Dilaudid PO as pt is likely tolerant to oxycodone, and is on Fluoxetine which is a CYP2D6 inhibitor. This medication could limit the efficacy of oxycodone Anxiety, depression Is on Fluoxetine which is a CYP2D6 inhibitor. This medication could limit the efficacy of oxycodone Order Dilaudid 2-4mg PO q4h PRN For mod / severe pain Constipation At risk for opioid induced constipation Patient currently receiving opioids for pain management necessitating a bowel regimen. Recommend initiating scheduled Sennakot-S 8.6/50mg, 1 tablet PO BID. Would also recommend Milk of Magnesia 400mg/5ml, administer 30mL by mouth daily PRN. Plan discussed with patient who appears to understand and agrees. Chief Complaint: abdominal surgery HPI: We have been asked to see this 39 y.o. female for postoperative pain management s/p ex lap with ventral hernia repair with anterior component separation with enform mesh 08/07/[address] AP 08/07/24 Paged PM 08/10/24 by RN for anxiety, increased pain after a BM. On arrival, pt sitting up in bed. Significant other at bedside. Abdominal pain is much better controlled. Robaxin helps a lot. Dilaudid working better than oxycodone. Long discussion had about discharge planning with pain medication. She is to use her discharge script for pain medicine, put her percocet aside, and finish this prescription. Her dose for dilaudid is equivalent to her baseline dose of oxycodone, as she likely has tolerance due to the amount she was taking. PCP writes pain medicine, encouraged her to make follow up appt to discuss pain control going forward. Verbalizes understanding. Tolerating diet. +BM x 2 Denies f/c, cp, sob, n/v/d Pain Location: Abdomen Aggravating Factors: Moving Sedation score: 1: Awake and alert Pain Severity: moderate Pain Quality: aching Alleviating Factors: Rest/Pain medications REVIEW OF SYSTEMS: Pertinent positives as noted in the HPI. All other systems reviewed and negative. PHYSICAL EXAM: Vitals: BP 117/74 Pulse 67 Temp 37.7 C (99.8 F) (Temporal) Resp 16 Ht 1.651 m (5' 5) Wt 99.8 kg (220 lb) SpO2 97% BMI 36.61 kg/m BMI Classification: Obese (BMI 30.0-39.9) General appearance: No apparent distress, appears stated age and cooperative. HEENT: Normal cephalic, atraumatic without obvious deformity. Pupils equal, round, and reactive to light. Extra ocular muscles intact. Conjunctivae/corneas clear. Neck: No jugular venous distention. Trachea midline. Cardiovascular: Peripheral pulses 2+ and equal in all extremities Respiratory: Unlabored respiratory effort. On room air Musculoskeletal: No clubbing, cyanosis or edema bilaterally. Full ROM of all extremities. Skin: Skin color, texture, turgor normal. Surgical incision c/d/I , wound vac intact with minimal output Neurologic: Neurovascularly intact without any focal sensory/motor deficits. Cranial nerves: II-XII intact, grossly non-focal. Psychiatric: Alert and orientedx3, thought content appropriate, normal insight ? Labs: Lab Results Component Value Date WBC 6.8 08/11/2024 HGB 11.9 08/11/2024 HCT 35.5 08/11/2024 MCV 91.5 08/11/2024 PLT 338 08/11/2024 Lab Results Component Value Date NA 136 08/11/2024 K 3.8 08/11/2024 CL 103 08/11/2024 CO2 26 08/11/2024 BUN 4 (L) 08/11/2024 CREATININE 0.41 (L) 08/11/2024 GLUCOSE 96 08/11/2024 CALCIUM 8.8 08/11/2024 PROT 6.8 08/09/2024 BILITOT 0.6 08/09/2024 ALKPHOS 60 08/09/2024 AST 52 (H) 08/09/2024 ALT 32 08/09/2024 PAGING: The Acute Pain Service providers are available exclusively via [employer]. APS does not utilize pagers. Nutrition Assessment Type and Reason for Visit: Initial, NPO/Clear Liquid (DT referral) Nutrition Recommendations/Plan: Continue with full liquid diet and advance as tolerated to goal of Low Fiber (GI Soft). Encouraged small frequent meals to promote tolerance. Suggest document po intake in nursing flow sheets RD continue to monitor overall nutritional status and follow up weekly Malnutrition Assessment: Malnutrition Status: At risk for malnutrition (Comment) Context: Acute Illness Findings of the 6 clinical characteristics of malnutrition: Energy Intake: Mild decrease in energy intake (Comment) Weight Loss: (reports intentional weight loss) Body Fat Loss: No significant body fat loss Muscle Mass Loss: No significant muscle mass loss Fluid Accumulation: No significant fluid accumulation Karate Teacher Strength: Not Performed Nutrition Assessment: 39 y.o. female with significant past history of bile reflux gastritis s/p biliopancreatic diversion, and PSHx of cholecystectomy, appendectomy and multiple hernia repairs who presents as a transfer from [facility] for hernia repair and appendicitis. Surgery was consulted for evaluation of hernia repair and acute appendicitis identified on CT scan. Patient reports right lower quadrant abdominal pain began last Friday 08/03. Patient reports pain has progressively worsened. Patient reports nausea and vomiting that began on Tuesday. Patient reports last episode of vomiting was earlier today. Patient denies passing gas and bowel movement since Tuesday. Patient reports skin overlying hernia on right side feels warmer than the rest of her abdomen. CT abdomen pelvis with contrast demonstrated Large ventral hernia containing small bowel and right colon, There is a tubular fluid-filled structure in the right hand side with surrounding streak-like densities concerning for acute appendicitis. Patient now s/p ex lap with ventral hernia repair with anterior component separation with enform mesh 08/07. Pt has prevena wound vac to midline abd. She also has two abd drains. Clear liquid diet initiated 08/08 and advanced to full liquid 08/09. Patient lying in bed resting, visitor at bed side. Reports she is tolerating the full liquid diet. Discussed weight loss with patient. Patient reports she has been intentionally losing weight for previously scheduled surgery by eating clean and lower fat diet. RD obtained bed scale weight of 208# and patient reported that sounded correct. Encouraged patient to consume small frequent meals and advance diet slowly to promote tolerance. Estimated Daily Nutrient Needs: Energy Requirements Based On: Kcal/kg Weight Used for Energy Requirements: [place] Weight for Energy Calculation (kg): 57 kg Total Energy Requirements (kcals/day): 2796-9980 (25-30) Weight Used for Protein Requirements: [place] Weight in Kg Used for Protein Requirements: 57 kg Estimated Total Protein (g/day): 57-74 (1.0-1.3) Estimated Daily Total Fluid (ml/day): per MD Nutrition Related Findings: hypoactive bowel sounds Wound Type: Surgical Incision, Wound Vac BMP: Recent Labs 08/08/24 0044 08/08/24 0525 08/09/24 0210 08/09/24 1905 08/10/24 0318 NA 135 134* 134* -- 132* K 3.8 3.9 3.6 -- 4.1 CL 107 107 106 -- 106 CO2 21* 19* 22 -- 18* BUN 9 9 4* -- 4* CREATININE 0.49* 0.44* 0.46* -- 0.40* GLUCOSE 142* 157* 114* -- 92 CALCIUM 8.2* 8.3* 8.2* -- 8.2* MG 1.5* -- -- 1.9 2.1 HEPATIC: No results for input(s): AST, ALT, BILITOT, ALKPHOS in the last 72 hours. No lab exists for component: ALB Scheduled Meds: acetaminophen, 1,000 mg, Oral, q6h bisacodyl, 10 mg, Rectal, Daily enoxaparin, 40 mg, SubCUTAneous, Daily famotidine, 20 mg, Oral, Once FLUoxetine, 20 mg, Oral, Daily gabapentin, 300 mg, Oral, 3 times per day methocarbamol, 1,000 mg, IntraVENous, q8h polyethylene glycol (PEG) 3350, 17 g, Oral, Daily sodium chloride 0.9%, 10 mL, IntraVENous, 2 times per day Current Nutrition Therapies: Adult diet Full liquid Current Oral Intake Average Meal Intake: Unable to assess Average Supplements Intake: None Ordered Anthropometric Measures: Height: 165.1 cm (5' 5) Current Body Weight: 94.3 kg (208 lb) Weight Source: Bed Scale Admission Body Weight: 99.8 kg (220 lb) Usual Body Weight: 111 kg (245 lb) (04/15/24) % Weight Change (Calculated): -15.1 [place] Body Weight (lbs) (Calculated): 125 lbs [place] Body Weight (Kg) (Calculated): 57 kg BMI (kg/m2) (Calculated): 34.6 Wt Readings from Last 8 Encounters: 08/07/24 99.8 kg (220 lb) 07/08/24 102 kg (224 lb) 06/13/24 103 kg (227 lb 9.6 oz) 04/24/24 110 kg (243 lb) 04/15/24 111 kg (245 lb) 04/10/24 111 kg (245 lb) 04/03/24 114 kg (250 lb 12.8 oz) 03/06/24 116 kg (255 lb 9.6 oz) Nutrition Diagnosis: Inadequate oral intake related to altered GI function, altered GI structure as evidenced by NPO or clear liquid status due to medical condition Nutrition Interventions: Nutrition Education/Counseling: No recommendation at this time Coordination of Nutrition Care: Continue to monitor while inpatient Goals: Goals: PO intake 50% or greater, by next RD assessment Nutrition Monitoring and Evaluation: Behavioral-Environmental Outcomes: None Identified Food/Nutrient Intake Outcomes: Diet Advancement/Tolerance, Food and Nutrient Intake Physical Signs/Symptoms Outcomes: Biochemical Data, GI Status, Fluid Status or Edema, Skin, Weight Discharge Planning: Too soon to determine Sol Mtz MS RD LD Contact: [employer] or [phone] Images from the original note were not included. Department of General Surgery Daily Progress Note ADMIT DATE: 08/07/2024 TODAY'S DATE: 08/10/2024 SUBJECTIVE: Patient reports improved abdominal pain from yesterday that is being managed with medication. Patient still has moderate anxiety. Denies nausea and vomiting. Tolerating FLD. No bowel movement. LUQ drain output overnight: 90 ml RUQ drain output overnight: 40 ml ROS: Noted above unless otherwise mentioned OBJECTIVE: VITALS: Temp: [36.6 C (97.8 F)-37.1 C (98.8 F)] 36.7 C (98 F) Heart Rate: [76-80] 76 Resp: [12-16] 12 BP: (116-130)/(61-80) 120/72 INTAKE/OUTPUT: Intake/Output Summary (Last 24 hours) at 08/10/2024 0712 Last data filed at 08/09/2024 204 Gross per 24 hour Intake -- Output 0 ml Net 0 ml I/O last 3 completed shifts: In: - (0 mL/kg) Out: 400 (4 mL/kg) [Urine:400 (0.1 mL/kg/hr)] Weight: 99.8 kg No intake/output data recorded. PHYSICAL EXAM: Gen: NAD, A&Ox3, pain well controlled Heart: RRR, well perfused Lungs: symmetric chest rise, normal work of breathing, breath sounds b/l Abd: soft, appropriate postoperative tenderness on exam, midline wound vac in place, non-rigid, non distended. Drains with ss fluid, left more sanguinous than right. Ext: no c/c/e no gross deformities Skin: warm, well perfused, no obvious rashes, cellulitis or gross discoloration LABS CBC: Auto WBC Date Value Ref Range Status 08/09/2024 10.7 3.6 - 10.7 10*3/uL Final 08/08/2024 13.0 (H) 3.6 - 10.7 10*3/uL Final 08/08/2024 10.7 3.6 - 10.7 10*3/uL Final Hemoglobin Date Value Ref Range Status 08/09/2024 10.5 (L) 11.7 - 16.0 g/dL Final 08/08/2024 12.3 11.7 - 16.0 g/dL Final 08/08/2024 11.8 11.7 - 16.0 g/dL Final Platelets Date Value Ref Range Status 08/09/2024 258 140 - 440 10*3/uL Final 08/08/2024 270 140 - 440 10*3/uL Final 08/08/2024 260 140 - 440 10*3/uL Final BMP: SODIUM Date Value Ref Range Status 08/10/2024 132 (L) 135 - 145 mmol/L Final 08/09/2024 134 (L) 135 - 145 mmol/L Final 08/08/2024 134 (L) 135 - 145 mmol/L Final POTASSIUM Date Value Ref Range Status 08/10/2024 4.1 3.5 - 5.1 mmol/L Final 08/09/2024 3.6 3.5 - 5.1 mmol/L Final 08/08/2024 3.9 3.5 - 5.1 mmol/L Final CHLORIDE Date Value Ref Range Status 08/10/2024 106 98 - 107 mmol/L Final 08/09/2024 106 98 - 107 mmol/L Final 08/08/2024 107 98 - 107 mmol/L Final CARBON DIOXIDE Date Value Ref Range Status 08/10/2024 18 (L) 22 - 30 mmol/L Final 08/09/2024 22 22 - 30 mmol/L Final 08/08/2024 19 (L) 22 - 30 mmol/L Final UREA NITROGEN Date Value Ref Range Status 08/10/2024 4 (L) 7 - 17 mg/dL Final 08/09/2024 4 (L) 7 - 17 mg/dL Final 08/08/2024 9 7 - 17 mg/dL Final CREATININE Date Value Ref Range Status 08/10/2024 0.40 (L) 0.52 - 1.04 mg/dL Final 08/09/2024 0.46 (L) 0.52 - 1.04 mg/dL Final 08/08/2024 0.44 (L) 0.52 - 1.04 mg/dL Final Hepatic: AST (SGOT) Date Value Ref Range Status 08/07/2024 18 15 - 46 U/L Final 07/08/2024 18 15 - 46 U/L Final 04/24/2024 19 15 - 46 U/L Final ALT Date Value Ref Range Status 08/07/2024 11 0 - 34 U/L Final 07/08/2024 12 0 - 34 U/L Final 04/24/2024 20 0 - 34 U/L Final ALBUMIN Date Value Ref Range Status 08/07/2024 3.9 3.5 - 5.0 g/dL Final 07/08/2024 4.5 3.5 - 5.0 g/dL Final 04/24/2024 4.4 3.5 - 5.0 g/dL Final BILIRUBIN, TOTAL Date Value Ref Range Status 08/07/2024 0.3 0.2 - 1.3 mg/dL Final 07/08/2024 0.3 0.2 - 1.3 mg/dL Final 04/24/2024 0.3 0.2 - 1.3 mg/dL Final BILIRUBIN, DIRECT Date Value Ref Range Status 11/13/2023 0.0 0.0 - 0.3 mg/dL Final 10/19/2023 0.0 0.0 - 0.3 mg/dL Final ALKALINE PHOSPHATASE Date Value Ref Range Status 08/07/2024 39 38 - 126 U/L Final 07/08/2024 43 38 - 126 U/L Final 04/24/2024 41 38 - 126 U/L Final Current Inpatient Medications Scheduled Meds:acetaminophen, 1,000 mg, Oral, q6h bisacodyl, 10 mg, Rectal, Daily enoxaparin, 40 mg, SubCUTAneous, Daily famotidine, 20 mg, Oral, Once FLUoxetine, 20 mg, Oral, Daily gabapentin, 300 mg, Oral, 3 times per day methocarbamol, 1,000 mg, IntraVENous, q8h polyethylene glycol (PEG) 3350, 17 g, Oral, Daily sodium chloride 0.9%, 10 mL, IntraVENous, 2 times per day Continuous Infusions: PRN Meds:PRN medications: ALPRAZolam, HYDROmorphone OR HYDROmorphone, HYDROmorphone OR HYDROmorphone, ipratropium-albuterol, naloxone (Narcan) 0.4 mg in 0.9% sodium chloride 10 mL syringe, promethazine OR promethazine OR promethazine, sodium chloride, sodium chloride 0.9% ASSESSMENT AND PLAN: 39 y.o. female s/p ex lap with ventral hernia repair with anterior component separation with enform mesh 08/07 - Pain control - Acute pain service consult, no [employer]EARCH [employer] ANALYTICS MANAGER pump - Diet: FLD as tolerated. DC IVF - Daily Mg and Phos with replacement as needed - Prn nausea medications - Daily bowel regiment - OOBA - DVT ppx with SCD's and lovenox Wdw Dr. Miranda Redd MD General Surgery 08/10/2024 7:12 AM ATTESTATION The patient was seen and examined. I have reviewed the patients presentation, histories, imaging and serology studies. I agree with the above assessment and plan. Ab: appropriately tender to palpation over surgical sites. Incision/dressing is clean, dry, and intact. Patient continues to have anxiety and abdominal pain. Abdomen is appropriately tender. Recommend acute pain consult. Continue bowel regimen. Continue out of bed. Continue DVT prophylaxis. Anticipate discharge early next week if patient continues to progress. --------- I (Serafin Taylor) personally supervised the resident/fellow in the evaluation and development of a treatment plan for this patient including using nursing/ems notes. I personally discussed the review of systems and interviewed the patient along with performing a physical examination. In addition, I discussed the patient's condition and treatment options with them. I have also reviewed and agree with the past medical, family and social history unless otherwise noted and personally reviewed the imaging and labs. This note may be a delayed entry. All of the patient's questions were answered. The patient was seen and examined independently and relevant data reviewed by myself. A full chart review was performed. Nutrition rescreen completed. Patient referred to the Dietitian. Patient is NPO/CL > 3 days. NICKY Wong [facility] Respiratory Care Department Progress Note As part of the Respiratory Assessment Program (RAP), the following Respiratory Therapist evaluation has been completed, including a chart review and clinical/physical assessment. Respiratory Therapist RAP Evaluation Guideline Points 0 1 2 3 4 Points Strongly Consider History Factor No Pulmonary conditions Stable Pulmonary condition(s) Surgery or Intervention that may impact Pulmonary system (at risk) Surgery or Intervention that is impacting Pulmonary system Active Exacerbation of Pulmonary Condition 1 Respiratory Pattern Regular, RR= 12-18 VALDEZ or Increased RR= 19-24 Irregular, or RR= 25-30 SOB, talk in short sentences, or RR= 31-35 Severe SOB, accessory muscle use, one word answers, or RR>35 0 Aerosol Med(s), High Flow O2 Breath Sounds Clear Diminished in 1 lobe Diminished in <= 2 lobes Adventitious breath sounds Coarse crackles, Wheezes, or Diminished in >2 lobes 0 Aerosol Med(s), Bronchial Hygiene, Hyperinflation Cough & Sputum Strong cough, no secretion retention or production Weak cough, no secretion retention or production Weak cough, w/ production (less often than Q2hr), or secretion retention No cough, w/ secretion retention or production (less often than Q2hr) Significant secretion production (more often than Q2hr) or mucus plug 0 Aerosol Med(s), Bronchial Hygiene, Hyperinflation Level of Activity Ambulatory Ambulatory with Assist Up in chair or edge of bed (dangle) Non-ambulatory, bedridden with active ROM Completely paralyzed or without active ROM 0 Triage 5 0-2 Triage 4 3-5 Triage 3 6-10 Triage 2 11-14 Triage 1 >=15 Total 1 Triage Score = 5 TRIAGE SCORING - SUGGESTED FREQUENCIES Aerosol Therapy Bronchial Hygiene Hyperinflation Triage Score Q4h & PRN 1 Q4hWA (QID) & PRN 2 TID & PRN 3 BID & PRN 4 PRN 5 Therapy(s) Indicated Yes/No Aerosol Medication Y Hyperinflation N Bronchial Hygiene N High Flow Oxygen N Comments: Thank you for involving Respiratory in the care of this patient, Images from the original note were not included. Department of General Surgery Daily Progress Note ADMIT DATE: 08/07/2024 TODAY'S DATE: 08/09/2024 SUBJECTIVE: Voiding on own since brian removed, pain better controlled, still has moderate anxiety. No gas or BM yet. No nausea or vomiting. Tolerating CLD ROS: Noted above unless otherwise mentioned OBJECTIVE: VITALS: Temp: [36.2 C (97.2 F)-36.7 C (98 F)] 36.6 C (97.9 F) Heart Rate: [75-88] 78 Resp: [15-16] 16 BP: (111-137)/(54-80) 124/68 INTAKE/OUTPUT: Intake/Output Summary (Last 24 hours) at 08/09/2024 0944 Last data filed at 08/09/2024 0517 Gross per 24 hour Intake 1590 ml Output 1300 ml Net 290 ml I/O last 3 completed shifts: In: 4893.8 (49 mL/kg) [P.O.:1250; I.V.:3503.8 (35.1 mL/kg); IV Piggyback:140] Out: 1900 (19 mL/kg) [Urine:1800 (0.5 mL/kg/hr); Blood:100] Weight: 99.8 kg No intake/output data recorded. PHYSICAL EXAM: Gen: NAD, A&Ox3, pain well controlled Heart: RRR, well perfused Lungs: symmetric chest rise, normal work of breathing, breath sounds b/l Abd: soft, appropriate postoperative tenderness on exam, midline wound vac in place, non-rigid, non distended. Drains with ss fluid Ext: no c/c/e no gross deformities Skin: warm, well perfused, no obvious rashes, cellulitis or gross discoloration LABS CBC: Auto WBC Date Value Ref Range Status 08/09/2024 10.7 3.6 - 10.7 10*3/uL Final 08/08/2024 13.0 (H) 3.6 - 10.7 10*3/uL Final 08/08/2024 10.7 3.6 - 10.7 10*3/uL Final Hemoglobin Date Value Ref Range Status 08/09/2024 10.5 (L) 11.7 - 16.0 g/dL Final 08/08/2024 12.3 11.7 - 16.0 g/dL Final 08/08/2024 11.8 11.7 - 16.0 g/dL Final Platelets Date Value Ref Range Status 08/09/2024 258 140 - 440 10*3/uL Final 08/08/2024 270 140 - 440 10*3/uL Final 08/08/2024 260 140 - 440 10*3/uL Final BMP: SODIUM Date Value Ref Range Status 08/09/2024 134 (L) 135 - 145 mmol/L Final 08/08/2024 134 (L) 135 - 145 mmol/L Final 08/08/2024 135 135 - 145 mmol/L Final POTASSIUM Date Value Ref Range Status 08/09/2024 3.6 3.5 - 5.1 mmol/L Final 08/08/2024 3.9 3.5 - 5.1 mmol/L Final 08/08/2024 3.8 3.5 - 5.1 mmol/L Final CHLORIDE Date Value Ref Range Status 08/09/2024 106 98 - 107 mmol/L Final 08/08/2024 107 98 - 107 mmol/L Final 08/08/2024 107 98 - 107 mmol/L Final CARBON DIOXIDE Date Value Ref Range Status 08/09/2024 22 22 - 30 mmol/L Final 08/08/2024 19 (L) 22 - 30 mmol/L Final 08/08/2024 21 (L) 22 - 30 mmol/L Final UREA NITROGEN Date Value Ref Range Status 08/09/2024 4 (L) 7 - 17 mg/dL Final 08/08/2024 9 7 - 17 mg/dL Final 08/08/2024 9 7 - 17 mg/dL Final CREATININE Date Value Ref Range Status 08/09/2024 0.46 (L) 0.52 - 1.04 mg/dL Final 08/08/2024 0.44 (L) 0.52 - 1.04 mg/dL Final 08/08/2024 0.49 (L) 0.52 - 1.04 mg/dL Final Hepatic: AST (SGOT) Date Value Ref Range Status 08/07/2024 18 15 - 46 U/L Final 07/08/2024 18 15 - 46 U/L Final 04/24/2024 19 15 - 46 U/L Final ALT Date Value Ref Range Status 08/07/2024 11 0 - 34 U/L Final 07/08/2024 12 0 - 34 U/L Final 04/24/2024 20 0 - 34 U/L Final ALBUMIN Date Value Ref Range Status 08/07/2024 3.9 3.5 - 5.0 g/dL Final 07/08/2024 4.5 3.5 - 5.0 g/dL Final 04/24/2024 4.4 3.5 - 5.0 g/dL Final BILIRUBIN, TOTAL Date Value Ref Range Status 08/07/2024 0.3 0.2 - 1.3 mg/dL Final 07/08/2024 0.3 0.2 - 1.3 mg/dL Final 04/24/2024 0.3 0.2 - 1.3 mg/dL Final BILIRUBIN, DIRECT Date Value Ref Range Status 11/13/2023 0.0 0.0 - 0.3 mg/dL Final 10/19/2023 0.0 0.0 - 0.3 mg/dL Final ALKALINE PHOSPHATASE Date Value Ref Range Status 08/07/2024 39 38 - 126 U/L Final 07/08/2024 43 38 - 126 U/L Final 04/24/2024 41 38 - 126 U/L Final Current Inpatient Medications Scheduled Meds:acetaminophen, 1,000 mg, Oral, q6h enoxaparin, 40 mg, SubCUTAneous, Daily famotidine, 20 mg, Oral, Once FLUoxetine, 20 mg, Oral, Daily gabapentin, 300 mg, Oral, 3 times per day ipratropium-albuterol, 3 mL, Nebulization, TID methocarbamol, 1,000 mg, Oral, 3 times per day sodium chloride 0.9%, 10 mL, IntraVENous, 2 times per day Continuous Infusions: PRN Meds:PRN medications: ALPRAZolam, HYDROmorphone OR HYDROmorphone, naloxone (Narcan) 0.4 mg in 0.9% sodium chloride 10 mL syringe, oxyCODONE OR oxyCODONE, promethazine OR promethazine OR promethazine, sodium chloride, sodium chloride 0.9% ASSESSMENT AND PLAN: 39 y.o. female s/p ex lap with ventral hernia repair with anterior component separation with enform mesh 08/07 - Pain control - Complete medication rec for home medications - Diet: CLD as tolerated. DC IVF - Daily Mg and Phos with replacement as needed - Prn nausea medications - Daily bowel regiment - OOBA - DVT ppx with SCD's and lovenox Wdw Dr. Miranda Laurent MD General Surgery Pager [phone] 08/09/2024 9:46 AM ATTESTATION The patient was seen and examined. I have reviewed the patients presentation, histories, imaging and serology studies. I agree with the above assessment and plan. Ab: appropriately tender to palpation over surgical sites. Incision/dressing is clean, dry, and intact. Patient is doing well, pain is well-controlled. She denies nausea or vomiting. She continues to endorse abdominal pain. Recommend continued checking daily labs. Recommend acute pain consult for pain management. Await bowel function. We will follow. --------- I (Serafin Taylor) personally supervised the resident/fellow in the evaluation and development of a treatment plan for this patient including using nursing/ems notes. I personally discussed the review of systems and interviewed the patient along with performing a physical examination. In addition, I discussed the patient's condition and treatment options with them. I have also reviewed and agree with the past medical, family and social history unless otherwise noted and personally reviewed the imaging and labs. This note may be a delayed entry. All of the patient's questions were answered. The patient was seen and examined independently and relevant data reviewed by myself. A full chart review was performed. Images from the original note were not included. Department of General Surgery Daily Progress Note ADMIT DATE: 08/07/2024 TODAY'S DATE: 08/08/2024 SUBJECTIVE: Endorsing significant abdominal pain and anxiety postoperatively. No nausea or vomiting with the CLD so far. Midline wound vac in place ROS: Noted above unless otherwise mentioned OBJECTIVE: VITALS: Temp: [35.6 C (96.1 F)-37.2 C (98.9 F)] 37.2 C (98.9 F) Heart Rate: [64-86] 86 Resp: [15-19] 18 BP: (104-151)/(53-85) 151/79 INTAKE/OUTPUT: Intake/Output Summary (Last 24 hours) at 08/08/2024 0942 Last data filed at 08/08/2024 0627 Gross per 24 hour Intake 3253.78 ml Output 600 ml Net 2653.78 ml I/O last 3 completed shifts: In: 4253.8 (42.6 mL/kg) [P.O.:700; I.V.:2363.8 (23.7 mL/kg); IV Piggyback:1190] Out: 600 (6 mL/kg) [Urine:500 (0.1 mL/kg/hr); Blood:100] Weight: 99.8 kg No intake/output data recorded. PHYSICAL EXAM: Gen: NAD, A&Ox3, pain well controlled Heart: RRR, well perfused Lungs: symmetric chest rise, normal work of breathing, breath sounds b/l Abd: soft, appropriate postoperative tenderness on exam, midline wound vac in place, non-rigid, non distended Ext: no c/c/e no gross deformities Skin: warm, well perfused, no obvious rashes, cellulitis or gross discoloration LABS CBC: Auto WBC Date Value Ref Range Status 08/08/2024 13.0 (H) 3.6 - 10.7 10*3/uL Final 08/08/2024 10.7 3.6 - 10.7 10*3/uL Final 08/07/2024 11.8 (H) 3.6 - 10.7 10*3/uL Final Hemoglobin Date Value Ref Range Status 08/08/2024 12.3 11.7 - 16.0 g/dL Final 08/08/2024 11.8 11.7 - 16.0 g/dL Final 08/07/2024 12.9 11.7 - 16.0 g/dL Final Platelets Date Value Ref Range Status 08/08/2024 270 140 - 440 10*3/uL Final 08/08/2024 260 140 - 440 10*3/uL Final 08/07/2024 301 140 - 440 10*3/uL Final BMP: SODIUM Date Value Ref Range Status 08/08/2024 134 (L) 135 - 145 mmol/L Final 08/08/2024 135 135 - 145 mmol/L Final 08/07/2024 136 135 - 145 mmol/L Final POTASSIUM Date Value Ref Range Status 08/08/2024 3.9 3.5 - 5.1 mmol/L Final 08/08/2024 3.8 3.5 - 5.1 mmol/L Final 08/07/2024 4.2 3.5 - 5.1 mmol/L Final CHLORIDE Date Value Ref Range Status 08/08/2024 107 98 - 107 mmol/L Final 08/08/2024 107 98 - 107 mmol/L Final 08/07/2024 108 (H) 98 - 107 mmol/L Final CARBON DIOXIDE Date Value Ref Range Status 08/08/2024 19 (L) 22 - 30 mmol/L Final 08/08/2024 21 (L) 22 - 30 mmol/L Final 08/07/2024 20 (L) 22 - 30 mmol/L Final UREA NITROGEN Date Value Ref Range Status 08/08/2024 9 7 - 17 mg/dL Final 08/08/2024 9 7 - 17 mg/dL Final 08/07/2024 10 7 - 17 mg/dL Final CREATININE Date Value Ref Range Status 08/08/2024 0.44 (L) 0.52 - 1.04 mg/dL Final 08/08/2024 0.49 (L) 0.52 - 1.04 mg/dL Final 08/07/2024 0.52 0.52 - 1.04 mg/dL Final Hepatic: AST (SGOT) Date Value Ref Range Status 08/07/2024 18 15 - 46 U/L Final 07/08/2024 18 15 - 46 U/L Final 04/24/2024 19 15 - 46 U/L Final ALT Date Value Ref Range Status 08/07/2024 11 0 - 34 U/L Final 07/08/2024 12 0 - 34 U/L Final 04/24/2024 20 0 - 34 U/L Final ALBUMIN Date Value Ref Range Status 08/07/2024 3.9 3.5 - 5.0 g/dL Final 07/08/2024 4.5 3.5 - 5.0 g/dL Final 04/24/2024 4.4 3.5 - 5.0 g/dL Final BILIRUBIN, TOTAL Date Value Ref Range Status 08/07/2024 0.3 0.2 - 1.3 mg/dL Final 07/08/2024 0.3 0.2 - 1.3 mg/dL Final 04/24/2024 0.3 0.2 - 1.3 mg/dL Final BILIRUBIN, DIRECT Date Value Ref Range Status 11/13/2023 0.0 0.0 - 0.3 mg/dL Final 10/19/2023 0.0 0.0 - 0.3 mg/dL Final ALKALINE PHOSPHATASE Date Value Ref Range Status 08/07/2024 39 38 - 126 U/L Final 07/08/2024 43 38 - 126 U/L Final 04/24/2024 41 38 - 126 U/L Final Current Inpatient Medications Scheduled Meds:acetaminophen, 1,000 mg, Oral, q6h ceFAZolin, 1,000 mg, IntraVENous, q8h enoxaparin, 40 mg, SubCUTAneous, Daily famotidine, 20 mg, Oral, Once FLUoxetine, 20 mg, Oral, Daily gabapentin, 300 mg, Oral, 3 times per day ipratropium-albuterol, 3 mL, Nebulization, TID methocarbamol, 1,000 mg, Oral, 3 times per day sodium chloride 0.9%, 10 mL, IntraVENous, 2 times per day Continuous Infusions:lactated Ringer's, 75 mL/hr, Last Rate: 75 mL/hr (08/08/24 0317) PRN Meds:PRN medications: HYDROmorphone OR HYDROmorphone, naloxone (Narcan) 0.4 mg in 0.9% sodium chloride 10 mL syringe, oxyCODONE OR oxyCODONE, promethazine OR promethazine OR promethazine, sodium chloride, sodium chloride 0.9% ASSESSMENT AND PLAN: 39 y.o. female s/p exploratory laparotomy for incarcerated ventral hernia with celiotomy and mesh placement on 08/07 - No further surgical intervention at this time - Pain control - Complete medication rec for home medications - Diet: CLD as tolerated. Continue low rate mIVf - Okay to DC brian - Daily Mg and Phos with replacement as needed - Prn nausea medications - Daily bowel regiment - OOBA - DVT ppx with SCD's and lovenox Will discuss with Dr. Miranda Coburn MD General Surgery PGY-2 08/08/24 9:42 AM This note may have been dictated using [employer] / T[employer] Practice Edition 2.6 and/or [employer] Voice Recognition Feature. The document was proofread; however, unrecognized voice recognition wood stock blank handler errors may be present. ATTESTATION The patient was seen and examined. I have reviewed the patients presentation, histories, imaging and serology studies. I agree with the above assessment and plan. Ab: appropriately tender to palpation over surgical sites. Incision/dressing is clean, dry, and intact. Patient is doing well this morning. Pain is well controlled. Labs and Imaging Reviewed. Start diet. Encourage up to chair, ambulation and IS. We will continue to follow. --------- I (Serafin Taylor) personally supervised the resident/fellow in the evaluation and development of a treatment plan for this patient including using nursing/ems notes. I personally discussed the review of systems and interviewed the patient along with performing a physical examination. In addition, I discussed the patient's condition and treatment options with them. I have also reviewed and agree with the past medical, family and social history unless otherwise noted and personally reviewed the imaging and labs. This note may be a delayed entry. All of the patient's questions were answered. The patient was seen and examined independently and relevant data reviewed by myself. A full chart review was performed. documented in this encounter [facility] 08-13-2024 Nurse Note Patient aware of dilaudid discontinued, but unhappy only gets one oxycodone or percocet, started crying and I said at least try thr med and we will see how it goes. She said just letting YOU know ill sign out AMA BY 0930AM IF NOT GETTING MORE OXY--5MG IS NOT ENOUGH [facility] 08-13-2024 Plan of care note Problem: Pain - Adult Goal: Verbalizes/displays adequate comfort level or baseline comfort level Outcome: Progressing Problem: Safety - Adult Goal: Free from fall injury Outcome: Progressing Problem: Discharge Planning Goal: Discharge to home or other facility with appropriate resources Outcome: Progressing Problem: Problem Interventions Goal: Assess Nutritional Intake Outcome: Progressing [facility] 08-12-2024 Plan of care note Problem: Pain - Adult Goal: Verbalizes/displays adequate comfort level or baseline comfort level Outcome: Progressing Problem: Safety - Adult Goal: Free from fall injury Outcome: Progressing Problem: Discharge Planning Goal: Discharge to home or other facility with appropriate resources Outcome: Progressing Problem: Problem Interventions Goal: Assess Nutritional Intake Outcome: Progressing The patient is Moderately Stable - Low risk of patient condition declining or worsening [facility] 08-12-2024 Plan of care note Problem: Pain - Adult Goal: Verbalizes/displays adequate comfort level or baseline comfort level Outcome: Progressing Problem: Safety - Adult Goal: Free from fall injury Outcome: Progressing Problem: Discharge Planning Goal: Discharge to home or other facility with appropriate resources Outcome: Progressing Problem: Problem Interventions Goal: Assess Nutritional Intake Outcome: Progressing [facility] 08-11-2024 Plan of care note Problem: Pain - Adult Goal: Verbalizes/displays adequate comfort level or baseline comfort level Outcome: Progressing Problem: Safety - Adult Goal: Free from fall injury Outcome: Progressing Problem: Discharge Planning Goal: Discharge to home or other facility with appropriate resources Outcome: Progressing Problem: Problem Interventions Goal: Assess Nutritional Intake Outcome: Progressing The patient is Moderately Stable - Low risk of patient condition declining or worsening [facility] [place] 08-11-2024 Plan of care note The patient is Moderately Stable - Low risk of patient condition declining or worsening The patient's goals for the shift include to control pain The clinical goals for the shift include to control pain throughout shift Over the shift, the patient did not make progress toward the following goals. Barriers to progression include pain. Recommendations to address these barriers include plan of care. [facility] [place] 08-10-2024 Note Formatting of this n ote might be different from the original. Care Management Progress Note Pt remains on H5 s/p surgery on 08/07/24: Ex lap; Repair of recurrent incarcerated incisional hernia and removal of abd mass. Pt has prevena wound vac to midline abd. She also has two abd drains. On FLD. Acute pain service has been consulted as pt is having issues with uncontrolled pain. Plan for discharge to home when medically stable. Tcc will continue to follow. Length of Stay (Days): 2 GMLOS: 2.1 [facility] [place] 08-10-2024 Note Formatting of this n ote might be different from the original. Care Management Progress Note Pt remains on H5 s/p surgery on 08/07/24: Ex lap; Repair of recurrent incarcerated incisional hernia and removal of abd mass. Pt has prevena wound vac to midline abd. She also has two abd drains. On FLD. Acute pain service has been consulted as pt is having issues with uncontrolled pain. Plan for discharge to home when medically stable. Tcc will continue to follow. Length of Stay (Days): 2 GMLOS: 2.1 [facility] 08-10-2024 Consult note Associated Order (s): IP CONSULT TO ANESTHESIOLOGY - ACUTE PAIN SERVICE Images from the original note were not included. PAGING: The Acute Pain Service providers are available exclusively via [employer]. APS does not utilize pagers. 08/10/2024 Discharge Recommendations: Pending Pain Management Adjuvants: 0700 --> 0700 08/09/2024 Scheduled APAP 3g Gabapentin Lidocaine patches PRN Hydromorphone IV 7.5mg Methocarbamol Oxycodone 60mg Assessment / Pain Management Plan: Will follow. Acute Postsurgical Abdominal pain Multimodal pain regimen: BLOCK: tap 08/07/24 Continue Hydromorphone 2 - 4 mg po q4h prn moderate to severe breakthrough pain. Continue Hydromorphone 0.25 mg - 0.5 mg IVP q4h prn moderate to severe breakthrough pain. Please utilize oral medications first. Continue Acetaminophen 1g po q6h scheduled ATC. Hepatic panel ordered Continue chronic Gabapentin 300 mg po TID Order meth ocarbamol 1g IVP q8h scheduled Continue Lidocaine patch x 1. Cut and place as needed. Continue Naloxone 0.4 mg IVP prn opioid reversal. PRN if respiratory rate is less than 6/min and patient is difficult to arouse then notify physician STAT. Mix 9 mL of sodium chloride 0.9% with 0.4 mg (1 mL) of naloxone (NARCAN) in 10 mL syringe. (Note: dilution is 0.04 mg/mL) Give 0.08 mg (2 mL of special dilution), slow IV push, repeat up to 0.4 mg (10 mL) or until patient is responsive to physical stimulation and respiratory rate is equal to or greater than 6 breaths/min. Continue to observe, if no response within 3 minutes of administration of 0.4 mg (10 mL) total, repeat dose (0.4 mg as administered previously). Ventral Hernia s/p ex lap with ventral hernia repair with anterior component separation with enform mesh 08/07/24 See #1 The patient's medical history and physical assessment, medications, allergies, patient's current medical condition, imaging, and labs were reviewed as part of this consultation. Patient's Medications have been reviewed. PMH reviewed below Opioid Use, Acute on Chronic Reviewed and educated patient on responsible use of opioids: after surgery, it can be normal to experience pain. If it is mild and you can move about without great difficulty or discomfort, you may not need to take pain medication. It is very important to take your pain medication only as needed. Avoiding excessive or unnecessary medication, will enable you to progress your activity each day to improve your muscle tone and movement, deep breathing, digestion, circulation and your body's ability to heal itself. OARRS reviewed for past two years. (Recurrent opiates RX filled) Pain Management: PCP: Francy Opioid Tolerant, opioid dependent Pt is maintained on Percocet 5/325mg PO 6x daily by PCP for chronic abdominal pain Please consider this patient may require higher doses of pain medication in the acute post operative period due to baseline tolerance Using Dilaudid PO as pt is likely tolerant to oxycodone, and is on Fluoxetine which is a CYP2D6 inhibitor. This medication could limit the efficacy of oxycodone Anxiety, depression Is on Fluoxetine which is a CYP2D6 inhibitor. This medication could limit the efficacy of oxycodone Order Dilaudid 2-4mg PO q4h PRN For mod / severe pain Constipation At risk for opioid induced constipation Patient currently receiving opioids for pain management necessitating a bowel regimen. Recommend initiating scheduled Sennakot-S 8.6/50mg, 1 tablet PO BID. Would also recommend Milk of Magnesia 400mg/5ml, administer 30mL by mouth daily PRN. Plan discussed with patient who appears to understand and agrees. Chief Complaint: abdominal surgery HPI: We have been asked to see this 39 y.o. female for postoperative pain management s/p ex lap with ventral hernia repair with anterior component separation with enform mesh 08/07/[address] AP 08/07/24 VALERIANO, no pages. On arrival, pt sitting up in bed. Abdominal pain has improved slightly since this morning with medication adjustments made by APS Muscle relaxer helped her a lot PCP writes for Percocet 6x daily for chronic abdominal pain. Pt takes this as prescribed. Tolerating FLD - BM, + flatulence Denies f/c, cp, sob, n/v/d Patient educated on pain regimen, aware that dilaudid po, dilaudid IV are PRN and patient must ask for these medications when needed. Educated patient to utilize oral pain medications as first line and reserve IV pain medications for severe breakthrough pain. Pt is realistic about pain control: Not all pain will be taken away, but pain should be tolerable/manageable with current regimen. Pt instructed to have staff page APS if pain becomes uncontrolled when utilizing present regimen. Pt agreeable, denies further questions. Pain Location: Abdomen Aggravating Factors: Moving Sedation score: 1: Awake and alert Pain Severity: severe Pain Quality: sharp Alleviating Factors: Rest/Pain medications Past Medical History: Past Medical History: No date: Anxiety No date: Bile reflux gastritis No date: Bipolar affective (HCC) No date: Depression No date: Morbid obesity, unspecified obesity type (HCC) Past Surgical History: Past Surgical History: No date: APPENDECTOMY 10/23/2008: BILIOPANCREATIC DIVERSION Comment: [facility]; janel-en-y duodenojejunostomy for bile reflux 02/2007: CHOLECYSTECTOMY Comment: lap 11/29/2023: COLONOSCOPY; N/A Comment: [facility]; repeat in 11/203306/10/2019: EXPLORATORY LAPAROTOMY Comment: Veronica @ [facility]; ex lap, [facility] 08/09/2013: INCISION AND DRAINAGE OF WOUND Comment: [facility]; I&D of surgical incision of LLQ 10/20/2017: INCISIONAL HERNIA REPAIR Comment: [facility]; open primary repair 07/12/2018: INCISIONAL HERNIA REPAIR Comment: [facility]; open w/ mesh 09/26/2018: INCISIONAL HERNIA REPAIR Comment: [facility]; lap w/ mesh 03/11/2020: INCISIONAL HERNIA REPAIR Comment: [facility]; repair w/ mesh excision, mesh replacement ([facility] Mesh w/ Echo), [facility] 07/19/2015: INCISIONAL HERNIA REPAIR Comment: [facility]; open repair w/ mesh 08/02/2013: SOFT TISSUE MASS EXCISION Comment: [facility]; STM excision of LLQ No date: TONSILLECTOMY Medications Prior to Admission: Prior to Admission medications Medication Sig Start Date End Date Taking? Authorizing Provider acetaminophen (Tylenol) 325 MG tablet Take 650 mg by mouth every 6 hours as needed for mild pain (1-3), moderate pain (4-6), headaches or fever. 06/30/23 Yes Historical Provider, ALPRAZolam (Xanax) 1 MG tablet Take 1 mg by mouth Nightly as needed for anxiety. Yes Historical Provider, FLUoxetine (PROzac) 20 MG capsule Take 20 mg by mouth in the morning. 11/23/22 Yes Historical Provider, methocarbamol (Robaxin) 750 MG tablet Take 1 tablet (750 mg) by mouth 3 times daily as needed for muscle spasms for up to 10 days. 04/26/24 08/08/24 Yes Lelo Dumont MD phentermine (Adipex-P) 37.5 MG tablet Take 1 tablet (37.5 mg) by mouth every morning (before breakfast). 01/30/24 08/08/24 Yes Neela Steven MD albuterol 108 (90 Base) MCG/ACT inhaler Inhale 2 puffs every 4 hours as needed for wheezing or shortness of breath. 11/22/23 Historical Provider, ibuprofen 800 MG tablet Take 800 mg by mouth every 6 hours as needed. 02/13/24 Historical Provider, phentermine (Adipex-P) 37.5 MG tablet Take 1 tablet (37.5 mg) by mouth every morning (before breakfast). 04/03/24 05/03/24 Neela Steven MD CHRONIC NARCOTIC USE: Yes, percocet 5/325mg PO 6x daily Allergies: Ketorolac, Ondansetron, and Seasonal Can pt take Acetaminophen: Yes Social History: TOBACCO: reports that she has quit smoking. Her smoking use included cigarettes. She has never used smokeless tobacco. ETOH: reports that she does not currently use alcohol. Social History Substance and Sexual Activity Drug Use Yes Frequency: 2.0 times per week Types: Marijuana Comment: edibles Family History: Family History Problem Relation Name Age of Onset Hypertension Father Diabetes Father REVIEW OF SYSTEMS: Pertinent positives as noted in the HPI. All other systems reviewed and negative. PHYSICAL EXAM: Vitals: BP 120/78 Pulse 72 Temp 36.4 C (97.5 F) (Temporal) Resp 18 Ht 1.651 m (5' 5) Wt 99.8 kg (220 lb) SpO2 97% BMI 36.61 kg/m BMI Classification: Obese (BMI 30.0-39.9) General appearance: No apparent distress, appears stated age and cooperative. HEENT: Normal cephalic, atraumatic without obvious deformity. Pupils equal, round, and reactive to light. Extra ocular muscles intact. Conjunctivae/corneas clear. Neck: No jugular venous distention. Trachea midline. Cardiovascular: Peripheral pulses 2+ and equal in all extremities Respiratory: Unlabored respiratory effort. On room air Musculoskeletal: No clubbing, cyanosis or edema bilaterally. Full ROM of all extremities. Skin: Skin color, texture, turgor normal. Surgical incisions, wound vac intact, c/d/I Neurologic: Neurovascularly intact without any focal sensory/motor deficits. Cranial nerves: II-XII intact, grossly non-focal. Psychiatric: Alert and orientedx3, thought content appropriate, normal insight ? Labs: Lab Results Component Value Date WBC 6.3 08/10/2024 HGB 10.7 (L) 08/10/2024 HCT 31.9 (L) 08/10/2024 MCV 92.2 08/10/2024 PLT 223 08/10/2024 Lab Results Component Value Date NA 132 (L) 08/10/2024 K 4.1 08/10/2024 CL 106 08/10/2024 CO2 18 (L) 08/10/2024 BUN 4 (L) 08/10/2024 CREATININE 0.40 (L) 08/10/2024 GLUCOSE 92 08/10/2024 CALCIUM 8.2 (L) 08/10/2024 PROT 6.4 08/07/2024 BILITOT 0.3 08/07/2024 ALKPHOS 39 08/07/2024 AST 18 08/07/2024 ALT 11 08/07/2024 PAGING: The Acute Pain Service providers are available exclusively via [employer]. APS does not utilize pagers. Cosigned by Celina Dubose MD at 08/13/2024 3:34 PM EST [facility] 08-09-2024 Plan of care note The patient is Moderately Stable - Low risk of patient condition declining or worsening The patient's goals for the shift include to control pain The clinical goals for the shift include to control pain throughout shift Over the shift, the patient did not make progress toward the following goals. Barriers to progression include pain. Recommendations to address these barriers include plan of care. [facility] 08-09-2024 Note Formatting of this n ote might be different from the original. TCC PROGRESS NOTE: Pt remains on H5 day two post op hernia repair with removal of abd mass. Prevena wound vac to abd. Two surgical drains present. Pt advanced to FLD today. She is from home with boyfriend; independent. Tcc will continue to follow for any dc needs. [facility] 08-09-2024 Note Formatting of this n ote might be different from the original. TCC PROGRESS NOTE: Pt remains on H5 day two post op hernia repair with removal of abd mass. Prevena wound vac to abd. Two surgical drains present. Pt advanced to FLD today. She is from home with boyfriend; independent. Tcc will continue to follow for any dc needs. [facility] 08-08-2024 Nurse Note Voided several times since brian out, missed measure hat in toilet a few times. Had a void lately of 200, bladder scanned for 42ml [facility] 08-08-2024 Note Formatting of this n ote might be different from the original. Care Managment Initial Assessment Date: 08/08/2024 Patient Name: Mel Wall : 1985 Patient Information Source of Information: Patient Cognition/Language: WFL - Within Functional Limits Permission given to speak with patient loan representative/caregiver as indicated: Confirmation of Payer with patient/family: Yes Payer Name: [facility] [place]: No Confirmation of Primary Care Physician: Confirmed PCP Name: Vicky Diaz Seen in last 2 years?: Yes Primary Caregiver: Self If assistance needed, confirmed caregiver ready, willing and able to care for patient at discharge: Confirmed with: Living Arrangements Current Residence: House Number of Floors 2 Number of Entry Steps: 5 or more Bed/Bath Levels: Both second floor Facility: Facility Name: Plan to Return: Lives with: Spouse/significant other Support Systems: Spouse/significant other, Parent, Family members, Friends/neighbors Activities of Daily Living Ambulation: Independent Bathing/Dressing: Independent Elimination/Continence/Toileting: Independent Feeding: Independent Who Assists with Activities of Daily Living: Instrumental Activities of Daily Living Prescription Coverage: Yes [facility] Medication Management: Independent Transportation/Shopping: Independent Transportation Mode: Car Needs Assistance with Transportation at Discharge: No Meal Preparation: Independent Laundry/Cleaning: Independent Finances/Bill Paying: Independent Communication: Independent Types of Care Services/Equipment Utilized Care Services: Dialysis Type: Durable Medical Equipment: DME Provider: None Patient's Goal/Discharge Plan Patient expects to be discharged to: home with s.o. Discharge Planning Actions: Continue to follow Patient's Choice Rights and [employer] and Collaborative Relationships Disclosed as Indicated for Post-Acute Care: Interdisciplinary Team Engagement: Social Work Referral for: Prison Return Additional Information: 39 yo female admitted for surgery on 08/07/24: Exploratory Lap, repair of recurrent incarcerated incisional hernia, and removal of abd mass with prevena wound vac. Pt still has brian cath and she has two surgical drains. Met with pt and explained role of tcc. Pt lives with her boyfriend. She is independent adls and uses no dme. Pt denies any needs from tcc at present. Anticipate dc home , possibly later today vs tomorrow. Tcc will continue to follow for dc needs. Radha Romeo RN [facility] [employer] 08-08-2024 Note Formatting of this n ote might be different from the original. Care Managment Initial Assessment Date: 08/08/2024 Patient Name: Mel Wall : 1985 Patient Information Source of Information: Patient Cognition/Language: WFL - Within Functional Limits Permission given to speak with patient loan representative/caregiver as indicated: Confirmation of Payer with patient/family: Yes Payer Name: [facility] [place]: No Confirmation of Primary Care Physician: Confirmed PCP Name: Vicky Diaz Seen in last 2 years?: Yes Primary Caregiver: Self If assistance needed, confirmed caregiver ready, willing and able to care for patient at discharge: Confirmed with: Living Arrangements Current Residence: House Number of Floors 2 Number of Entry Steps: 5 or more Bed/Bath Levels: Both second floor Facility: Facility Name: Plan to Return: Lives with: Spouse/significant other Support Systems: Spouse/significant other, Parent, Family members, Friends/neighbors Activities of Daily Living Ambulation: Independent Bathing/Dressing: Independent Elimination/Continence/Toileting: Independent Feeding: Independent Who Assists with Activities of Daily Living: Instrumental Activities of Daily Living Prescription Coverage: Yes [facility] Medication Management: Independent Transportation/Shopping: Independent Transportation Mode: Car Needs Assistance with Transportation at Discharge: No Meal Preparation: Independent Laundry/Cleaning: Independent Finances/Bill Paying: Independent Communication: Independent Types of Care Services/Equipment Utilized Care Services: Dialysis Type: Durable Medical Equipment: DME Provider: None Patient's Goal/Discharge Plan Patient expects to be discharged to: home with s.o. Discharge Planning Actions: Continue to follow Patient's Choice Rights and [employer] and Collaborative Relationships Disclosed as Indicated for Post-Acute Care: Interdisciplinary Team Engagement: Social Work Referral for: Prison Return Additional Information: 39 yo female admitted for surgery on 08/07/24: Exploratory Lap, repair of recurrent incarcerated incisional hernia, and removal of abd mass with prevena wound vac. Pt still has brian cath and she has two surgical drains. Met with pt and explained role of tcc. Pt lives with her boyfriend. She is independent adls and uses no dme. Pt denies any needs from tcc at present. Anticipate dc home , possibly later today vs tomorrow. Tcc will continue to follow for dc needs. Radha Romeo RN [facility] [place] 08-08-2024 Plan of care note Problem: Pain - Adult Goal: Verbalizes/displays adequate comfort level or baseline comfort level Outcome: Progressing Problem: Safety - Adult Goal: Free from fall injury Outcome: Progressing Problem: Discharge Planning Goal: Discharge to home or other facility with appropriate resources Outcome: Progressing [facility] [place] 08-07-2024 Note Formatting of this n ote is different from the original. Date: 08/07/2024 - 08/08/2024 Location: [facility] OR Name: Mel Wall, : 1985, Diagnosis Pre-op Diagnosis * Ventral hernia without obstruction or gangrene [K43.9] Post-op Diagnosis * Ventral hernia without obstruction or gangrene [K43.9] Procedures EXPLORATORY LAPAROTOMY; RECURRENT INCARCERATED INCISIONAL HERNIA >10CM, MESH EXPLANT, REMOVAL OF ABDOMINAL MASS, TEMPORARY MESH, PREVENA WOUND VAC >50CM, CENTRAL PANNICULECTOMY [id number] - LA EXPLORATORY LAPAROTOMY CELIOTOMY W/WO BIOPSY SPX Surgeons * Serafin Taylor - Primary Procedure Summary Anesthesia: General ASA: III Estimated Blood Loss: 100 mL Drains: Closed/Suction Drain RUQ (Active) Closed/Suction Drain LUQ (Active) Urethral Catheter Straight-tip (Active) Specimens ID Source Type Tests Collected By Collected At Frozen? Priority Lab ID 1 Abdominal Wall Tissue TISSUE EXAM Serafin Taylor DO 08/07/242122 No Routine Description: ABDOMINAL SOFT TISSUE MASS 2 Abdominal Wall Tissue TISSUE EXAM Serafin Taylor 08/07/242149 No Description: MESH FOR GROSS Comment: FOR GROSS EXAMINATION 3 Abdominal Wall Tissue TISSUE EXAM Serafin Taylor, 08/07/242206 No Routine Description: HERNIA SAC 4 Abdominal Wall Tissue TISSUE EXAM Serafin Taylor, 08/07/24 234 Routine Description: CENTRAL PANNUS Implants Type Name Action Serial No. Skin Substitute MESH SURG ENFORM PRE [id number] - [id number] Implanted [id number] Staff: Tax Map Technician: Brennan Salas RN; Aye Melendez RN Relief Tax Map Technician: Regine Sher RN Scrub Person: Brady Hill; Jessa Caldwell LPN Findings: Epiploic appendage infarction Ventral hernia repair with anterior component separation with Enform Mesh Prevena wound vac Complications: None; patient tolerated the procedure well. Specimens Collected: Order Name Source Comment Collection Info Order Time BASIC METABOLIC PANEL Blood, Venous 08/08/2024 12:43 AM MAGNESIUM Blood, Venous 08/08/2024 12:43 AM CBC WITH AUTO DIFFERENTIAL Blood, Venous 08/08/2024 12:43 AM TISSUE EXAM Abdominal Wall Collected By: Serafin Taylor DO 08/07/2024 9:24 PM Wound Class: Class II: Clean-Contaminated Blood Products: None Prophylactic Antibiotics: Procedure appropriate prophylactic antibiotic(s) given within 1 hour of surgical incision (two hours if receiving Vancomycin or flouroquinolone) Cosigned by Serafin Taylor DO at 08/08/2024 9:15 AM EDT [facility] Phone: 08-07-2024 Note Formatting of this n ote is different from the original. Date: 08/07/2024 - 08/08/2024 Location: [facility] OR Name: Mel Wall : 1985, Diagnosis Pre-op Diagnosis * Ventral hernia without obstruction or gangrene [K43.9] Post-op Diagnosis * Ventral hernia without obstruction or gangrene [K43.9] Procedures EXPLORATORY LAPAROTOMY; RECURRENT INCARCERATED INCISIONAL HERNIA >10CM, MESH EXPLANT, REMOVAL OF ABDOMINAL MASS, TEMPORARY MESH, PREVENA WOUND VAC >50CM, CENTRAL PANNICULECTOMY [id number] - LA EXPLORATORY LAPAROTOMY CELIOTOMY W/WO BIOPSY SPX Surgeons * Serafin Taylor - Primary Procedure Summary Anesthesia: General ASA: III Estimated Blood Loss: 100 mL Drains: Closed/Suction Drain RUQ (Active) Closed/Suction Drain LUQ (Active) Urethral Catheter Straight-tip (Active) Specimens ID Source Type Tests Collected By Collected At Frozen? Priority Lab ID 1 Abdominal Wall Tissue TISSUE EXAM Serafin Taylor, 08/07/242122 No Routine Description: ABDOMINAL SOFT TISSUE MASS 2 [facility] 08/07/242149 No Description: MESH FOR GROSS Comment: FOR GROSS EXAMINATION 3 Abdominal Wall Tissue TISSUE EXAM Serafin Taylor 08/07/242206 No Routine Description: HERNIA SAC 4 Abdominal Wall Tissue TISSUE EXAM Serafin Miranda, 08/07/24 2347 Routine Description: CENTRAL PANNUS Implants Type Name Action Serial No. Skin Substitute MESH SURG ENFORM PRE [id number] - [id number] - [id number] Implanted [id number] Staff: Tax Map Technician: Brennan Salas RN; Aye Melendez RN Relief Tax Map Technician: Regine Sher RN Scrub Person: Brady Hill; Jessa Caldwell LPN Findings: Epiploic appendage infarction Ventral hernia repair with anterior component separation with Enform Mesh Prevena wound vac Complications: None; patient tolerated the procedure well. Specimens Collected: Order Name Source Comment Collection Info Order Time BASIC METABOLIC PANEL Blood, Venous 08/08/2024 12:43 AM MAGNESIUM Blood, Venous 08/08/2024 12:43 AM CBC WITH AUTO DIFFERENTIAL Blood, Venous 08/08/2024 12:43 AM TISSUE EXAM Abdominal Wall Collected By: Serafin Taylor DO 08/07/2024 9:24 PM Wound Class: Class II: Clean-Contaminated Blood Products: None Prophylactic Antibiotics: Procedure appropriate prophylactic antibiotic(s) given within 1 hour of surgical incision (two hours if receiving Vancomycin or flouroquinolone) Cosigned by Serafin Taylor DO at 08/08/2024 9:15 AM EDT [facility] Work Phone: 08-07-2024 Note Formatting of this n ote is different from the original. Images from the original note were not included. RODNEY BLEDSOE DO, [facility] LAPAROSCOPY, BARIATRIC AND ROBOTIC SURGERY [facility] OPERATIVE REPORT 08/08/24 PATIENT: Mel Wall DATE OF : 1985 PROCEDURE: OPEN RECURRENT (>10 CM) INCISIONAL HERNIA (INCARCERATED) REPAIR WITH LYSIS OF INTRAABDOMINAL ADHESIONS REQUIRING 40 ADDITIONAL MINUTES (Modifier 22) RIGHT ANTERIOR COMPONENT SEPARATION, MYOFASCIAL RELEASE, MYOCUTANEOUS FLAP (47710) LEFT ANTERIOR COMPONENT SEPARATION, MYOFASCIAL RELEASE, MYOCUTANEOUS FLAP (43100, Modifier 59) DEBRIDEMENT OF SKIN, MUSCLE, AND FASCIA with MESH REMOVAL (92513) CENTRAL PANNICULECTOMY (58221) IMPLANTATION OF ABSORBABLE MESH FOR DELAYED CLOSURE (02894) REMOVAL OF INFARCTED CECAL EPIPLOIC APPENDAGE (61472) NEGATIVE PRESSURE WOUND VAC THERAPY (PREVENA) >50 ( 38 cm x 3 cm x 1 cm) (47748) SURGEON: Serafin Taylor DO TRADE MARK ATTORNEY: Guy Polanco PRE-OPERATIVE DIAGNOSES: RECURRENT (>10 CM) INCISIONAL HERNIA (INCARCERATED) Abnormal CT scan of the abdomen and pelvis Abdominal Pain History of appendectomy History of biliopancreatic diversion for bile reflux History of exploratory laparotomy for intra-abdominal adhesions History of at least 5 Incisional hernia repairs with mesh placement and explant Morbid obesity due to excess calories, class III, BMI 36.61 POST-OPERATIVE DIAGNOSES: Same, findings appear to be consistent with epiploic appendagitis, there was significant phlegmon around the cecum, large mesh explanted, extensive intra-abdominal adhesions, operative findings appear to be 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 Patient had a biliopancreatic limb length of approximately 40 cm. The Jejunojejunostomy anastomosis is approximately 50 cm from the colonic mesentery. ANESTHESIA: General endotracheal, Transverse abdominis plane block FLUIDS: 2200 mL crystalloid ESTIMATED BLOOD LOSS: 50 mL URINE OUTPUT: 200 mL CONSENT: The patient was seen in the preoperative area. The details of the procedure were discussed including the risks, benefits, complications, alternatives, expected recovery and outcomes. The site of surgery was properly noted/marked if necessary per policy. INFECTION CONTROL: Procedure appropriate prophylactic antibiotic(s) given within 1 hour of surgical incision (two hours if receiving Vancomycin or flouroquinolone) Infection present: Phlegmon present at the organ space (e.g. abdominal or thoracic) tissue level. SPECIMENS: ID Type Source Tests Collected by Time 1 : ABDOMINAL SOFT TISSUE MASS Tissue Abdominal Wall TISSUE EXAM [facility], 08/07/20242122 2 : MESH FOR GROSS; ABDOMINAL WALL Tissue Abdominal Wall TISSUE EXAM [facility], 08/07/20242149 3 : HERNIA SAC Tissue Abdominal Wall TISSUE EXAM [facility], 08/07/20242206 4 : CENTRAL PANNUS Tissue Abdominal Wall TISSUE EXAM [facility], 08/07/2024 2347 COMPLICATIONS: None; patient tolerated the procedure well. PREOPERATIVE MEDICATIONS: Pre-operative IV antibiotics: Zosyn INDICATIONS FOR PROCEDURE: The patient is a 39 y.o. female with a large RECURRENT (>10 CM) INCISIONAL HERNIA (INCARCERATED). The patient presented to the emergency room and had CT scan findings concerning for acute appendicitis. The patient's abdomen was peritoneal. The patient was evaluated and an exploratory laparotomy with abdominal wall reconstruction was recommended. The risks, benefits and options of the procedure and additional possible interventions were reviewed and all questions were answered to the patient's satisfaction. DESCRIPTION OF PROCEDURE: Time Out, Prepping and Draping The patient was transported to the operating room and identified by name and number. The patient was placed on the operating room table in the supine position and general endotracheal anesthesia was administered by members of the anesthesia team. Following placement of sequential compression devices, OG and brian catheter, the patients extremities were positioned and protected. The abdomen was prepped and draped in standard surgical fashion. An operating room team time out was performed confirming the identity of the patient and the planned procedure. Abdominal Entry, Evaluation, Adhesiolysis, Anatomy Assessment, Resection of Intra-Abdominal Mass Using a ten-blade scalpel, a midline incision was made from the xyphoid to the pubis along pre marked lines. Dissection was performed with electrocautery down to the level of the deep fascia. Limited lateral undermining was performed. Meticulous hemostatic technique was exercised throughout the procedure to minimize blood loss. The abdomen was then entered. While entering the abdomen, a large mesh was encountered. This did not appear infected and cultures were not taken. The mesh was explanted and passed off the table as specimen. The abdominal cavity was then inspected and significant adhesions to the anterior abdominal wall and small bowel was noted. Additionally, it appeared that the uterus was intimately adhesed to the anterior abdominal wall in the suprapubic position. The uterus and adhesions in this region were not disturbed. A modifier 22 was applied as 50 additional minutes of enterolysis was performed. Following this the small bowel was inspected and run from the cecum to the ligament of Treitz and no enterotomies were noted. Large intestine was examined and was grossly unremarkable. Next, the hernia was assessed and found to be a large incarcerated defect measuring 12 cm in total length. Next, we assessed the patient's previous biliary diversion. 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 From the colonic mesentery the Janel limb measured approximately 50 cm. The jejunojejunostomy was unremarkable. There was no mesenteric defect. There was no Petersons defect. The biliopancreatic limb measured approximately 40 cm in length. There appeared to be no torsion or twisting of either mesentery. Anastomosis was widely patent and unremarkable. Please refer to hand-drawn surgical diagram below. Next, we turned our attention to the abnormalities noted on CT scan in the right lower quadrant of the cecum. Inspection revealed findings that were consistent with epiploic appendagitis. It appeared that an epiploic appendage of the proximal cecum was severely twisted near the level of the colon resulting in a complete infarction of this appendage. Utilizing electrocautery, the appendage was carefully lysed and passed off the specimen. There was a significant amount of phlegmon and induration at the level of the cecum. Given the phlegmon, extensive lysis, explant of the mesh, and the significant mushrooming of the hernia onto the anterior sheath, the decision was made to proceed with an anterior component separation, primary suture closure, temporary mesh placement. Given the unclear course of the right lower quadrant phlegmon, the decision was made to not perform a retrorectus and posterior component separation, leaving these planes virgin should the patient require an additional hernia repair or posterior reconstruction in the future. RIGHT Anterior Component Separation Next, we proceeded with our right myofascial release. We then exposed the external oblique fascia just lateral to the rectus sheath from above the inguinal area towards the costal margin. Care was taken to limit underminding in order to preserve blood supply to the lateral abdominal tissues. We then incised the fascia just lateral to the rectus sheath, which was identified by pinching the abdominal wall after it was mobilized. Fat was visualized to be protruding from the clyde in the fascia. The incision was extended from the cephalad and caudad. Care was taken to keep the plane of dissection above any underlying muscle that was identified. The inguinal ligament was left intact. After incising the fascia, dissection was then carried out laterally in the plane underneath the external oblique fascia toward the anterior axillary line to create additional advancement of the midline abdominal fascia. It is to be noted that the patient poor quality of her external oblique muscles. LEFT Anterior Component Separation Next, we proceeded with our left myofascial release. We then exposed the external oblique fascia just lateral to the rectus sheath from above the inguinal area towards the costal margin. Care was taken to limit underminding in order to preserve blood supply to the lateral abdominal tissues. We then incised the fascia just lateral to the rectus sheath, which was identified by pinching the abdominal wall after it was mobilized. Fat was visualized to be protruding from the clyde in the fascia. The incision was extended from the cephalad and caudad. Care was taken to keep the plane of dissection above any underlying muscle that was identified. The inguinal ligament was left intact. After incising the fascia, dissection was then carried out laterally in the plane underneath the external oblique fascia toward the anterior axillary line to create additional advancement of the midline abdominal fascia. As noted the contralateral side, patient had poor quality of her external oblique muscles. Debridement of Skin, Muscle, Fascia - Non-Necrotizing We assessed the dermis, subcutaneous tissue, muscle and fascia. Wound edges appeared non-viable and Non-Necrotizing . We now proceeded with debridement of all non-viable dermis, subcutaneous tissue, muscle and fascia. This debridement was performed with a combination of sharp and electrocautery removal. Following debridement, all muscle and fascial edges appeared viable with bleeding and firing response to electrocautery. Hemostasis was obtained. Fascial Closure We now proceeded with anterior fascial closure. A #1 STRATAFIX symmetric PDS suture was run superiorly. This was repeated inferiorly until the defect was closed. Mesh Implantation Next, the fascial closure was assessed. It appeared excellent and tension-free. Given her substantial previous hernia history, the decision was made to proceed with an onlay mesh of 30 x 30 [place] Enform mesh. This mesh was placed in Ligia fashion and secured circumferentially with a continuous running #1 STRATAFIX suture. Following this, several absorber tack tackers were utilized to ensure that the mesh was then adequate apposition with the anterior sheath of the abdomen. Additionally, mesh placement fully covered the incision sites of the myocutaneous advancement flaps. Mesh apposition and hernia repair were then assessed. Repair and apposition appeared excellent. Two 19-[place]aur[place] Ivan drains were placed in the subcutaneous space. Central Panniculectomy Next, the anterior abdominal wall was assessed. There appeared to be substantial redundancy of the central abdominal subcutaneous tissue and dermis secondary to the large, now reduced, abdominal wall hernia. Given the redundancy of the tissue in this region, the decision was made to proceed with a central panniculectomy. Both edges of the incision were then assessed and marked to ensure it would meet in the midline margin tension free. These areas were marked. Next, skin flaps were excised utilizing a scalpel. The pannus was passed off the table as specimen. This region was copiously irrigated with several liters of warm saline and hemostasis was confirmed. Two of Vistaseal was applied to the surgical field. A preliminary sponge needle and insturment count was performed a 38 nd was correct. The skin flaps were approximated and sutured together in several layers: Running 3-0 Monocryl for armando's fascia and interrupted 3-0 Vicryl for the deep dermis. Shilpa were used to close the skin. An incisional vac (38 cm x 3 cm x 1 cm) was applied. Conclusion The needle, sponge and instrument counts were correct. The patient tolerated the procedure and the anesthesia well without any major complications. The peak airway pressures were observed and deemed within normal limits. The patients was transported to the post-anesthesia care unit in stable condition. I was present for the entire duration of the procedure. Surgical Anatomy [facility] 08-07-2024 Note Formatting of this n ote is different from the original. Images from the original note were not included. RODNEY BLEDSOE DO, [facility] LAPAROSCOPY, BARIATRIC AND ROBOTIC SURGERY [facility] OPERATIVE REPORT 08/08/24 PATIENT: Mel Wall DATE OF : 1985 PROCEDURE: OPEN RECURRENT (>10 CM) INCISIONAL HERNIA (INCARCERATED) REPAIR WITH LYSIS OF INTRAABDOMINAL ADHESIONS REQUIRING 40 ADDITIONAL MINUTES (Modifier 22) RIGHT ANTERIOR COMPONENT SEPARATION, MYOFASCIAL RELEASE, MYOCUTANEOUS FLAP (10448) LEFT ANTERIOR COMPONENT SEPARATION, MYOFASCIAL RELEASE, MYOCUTANEOUS FLAP (84613, Modifier 59) DEBRIDEMENT OF SKIN, MUSCLE, AND FASCIA with MESH REMOVAL (16094) CENTRAL PANNICULECTOMY (63360) IMPLANTATION OF ABSORBABLE MESH FOR DELAYED CLOSURE (34515) REMOVAL OF INFARCTED CECAL EPIPLOIC APPENDAGE (01008) NEGATIVE PRESSURE WOUND VAC THERAPY (PREVENA) >50 ( 38 cm x 3 cm x 1 cm) (97977) SURGEON: Serafin Taylor DO [employer] ATTORNEY: Guy Polanco PRE-OPERATIVE DIAGNOSES: RECURRENT (>10 CM) INCISIONAL HERNIA (INCARCERATED) Abnormal CT scan of the abdomen and pelvis Abdominal Pain History of appendectomy History of biliopancreatic diversion for bile reflux History of exploratory laparotomy for intra-abdominal adhesions History of at least 5 Incisional hernia repairs with mesh placement and explant Morbid obesity due to excess calories, class III, BMI 36.61 POST-OPERATIVE DIAGNOSES: Same, findings appear to be consistent with epiploic appendagitis, there was significant phlegmon around the cecum, large mesh explanted, extensive intra-abdominal adhesions, operative findings appear to be 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 Patient had a biliopancreatic limb length of approximately 40 cm. The Jejunojejunostomy anastomosis is approximately 50 cm from the colonic mesentery. ANESTHESIA: General endotracheal, Transverse abdominis plane block FLUIDS: 2200 mL crystalloid ESTIMATED BLOOD LOSS: 50 mL URINE OUTPUT: 200 mL CONSENT: The patient was seen in the preoperative area. The details of the procedure were discussed including the risks, benefits, complications, alternatives, expected recovery and outcomes. The site of surgery was properly noted/marked if necessary per policy. INFECTION CONTROL: Procedure appropriate prophylactic antibiotic(s) given within 1 hour of surgical incision (two hours if receiving Vancomycin or flouroquinolone) Infection present: Phlegmon present at the organ space (e.g. abdominal or thoracic) tissue level. SPECIMENS: ID Type Source Tests Collected by Time 1 : ABDOMINAL SOFT TISSUE MASS Tissue Abdominal Wall TISSUE EXAM Serafin Taylor DO 08/07/20242122 2 : MESH FOR GROSS; ABDOMINAL WALL Tissue Abdominal Wall TISSUE EXAM Serafin Taylor DO 08/07/20242149 3 : HERNIA SAC Tissue Abdominal Wall TISSUE EXAM Serafin Taylor, 08/07/20242206 4 : CENTRAL PANNUS Tissue Abdominal Wall TISSUE EXAM Serafin Taylor, 08/07/2024 2347 COMPLICATIONS: None; patient tolerated the procedure well. PREOPERATIVE MEDICATIONS: Pre-operative IV antibiotics: Zosyn INDICATIONS FOR PROCEDURE: The patient is a 39 y.o. female with a large RECURRENT (>10 CM) INCISIONAL HERNIA (INCARCERATED). The patient presented to the emergency room and had CT scan findings concerning for acute appendicitis. The patient's abdomen was peritoneal. The patient was evaluated and an exploratory laparotomy with abdominal wall reconstruction was recommended. The risks, benefits and options of the procedure and additional possible interventions were reviewed and all questions were answered to the patient's satisfaction. DESCRIPTION OF PROCEDURE: Time Out, Prepping and Draping The patient was transported to the operating room and identified by name and number. The patient was placed on the operating room table in the supine position and general endotracheal anesthesia was administered by members of the anesthesia team. Following placement of sequential compression devices, OG and brian catheter, the patients extremities were positioned and protected. The abdomen was prepped and draped in standard surgical fashion. An operating room team time out was performed confirming the identity of the patient and the planned procedure. Abdominal Entry, Evaluation, Adhesiolysis, Anatomy Assessment, Resection of Intra-Abdominal Mass Using a ten-blade scalpel, a midline incision was made from the xyphoid to the pubis along pre marked lines. Dissection was performed with electrocautery down to the level of the deep fascia. Limited lateral undermining was performed. Meticulous hemostatic technique was exercised throughout the procedure to minimize blood loss. The abdomen was then entered. While entering the abdomen, a large mesh was encountered. This did not appear infected and cultures were not taken. The mesh was explanted and passed off the table as specimen. The abdominal cavity was then inspected and significant adhesions to the anterior abdominal wall and small bowel was noted. Additionally, it appeared that the uterus was intimately adhesed to the anterior abdominal wall in the suprapubic position. The uterus and adhesions in this region were not disturbed. A modifier 22 was applied as 50 additional minutes of enterolysis was performed. Following this the small bowel was inspected and run from the cecum to the ligament of Treitz and no enterotomies were noted. Large intestine was examined and was grossly unremarkable. Next, the hernia was assessed and found to be a large incarcerated defect measuring 12 cm in total length. Next, we assessed the patient's previous biliary diversion. 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 From the colonic mesentery the Janel limb measured approximately 50 cm. The jejunojejunostomy was unremarkable. There was no mesenteric defect. There was no Petersons defect. The biliopancreatic limb measured approximately 40 cm in length. There appeared to be no torsion or twisting of either mesentery. Anastomosis was widely patent and unremarkable. Please refer to hand-drawn surgical diagram below. Next, we turned our attention to the abnormalities noted on CT scan in the right lower quadrant of the cecum. Inspection revealed findings that were consistent with epiploic appendagitis. It appeared that an epiploic appendage of the proximal cecum was severely twisted near the level of the colon resulting in a complete infarction of this appendage. Utilizing electrocautery, the appendage was carefully lysed and passed off the specimen. There was a significant amount of phlegmon and induration at the level of the cecum. Given the phlegmon, extensive lysis, explant of the mesh, and the significant mushrooming of the hernia onto the anterior sheath, the decision was made to proceed with an anterior component separation, primary suture closure, temporary mesh placement. Given the unclear course of the right lower quadrant phlegmon, the decision was made to not perform a retrorectus and posterior component separation, leaving these planes virgin should the patient require an additional hernia repair or posterior reconstruction in the future. RIGHT Anterior Component Separation Next, we proceeded with our right myofascial release. We then exposed the external oblique fascia just lateral to the rectus sheath from above the inguinal area towards the costal margin. Care was taken to limit underminding in order to preserve blood supply to the lateral abdominal tissues. We then incised the fascia just lateral to the rectus sheath, which was identified by pinching the abdominal wall after it was mobilized. Fat was visualized to be protruding from the clyde in the fascia. The incision was extended from the cephalad and caudad. Care was taken to keep the plane of dissection above any underlying muscle that was identified. The inguinal ligament was left intact. After incising the fascia, dissection was then carried out laterally in the plane underneath the external oblique fascia toward the anterior axillary line to create additional advancement of the midline abdominal fascia. It is to be noted that the patient poor quality of her external oblique muscles. LEFT Anterior Component Separation Next, we proceeded with our left myofascial release. We then exposed the external oblique fascia just lateral to the rectus sheath from above the inguinal area towards the costal margin. Care was taken to limit underminding in order to preserve blood supply to the lateral abdominal tissues. We then incised the fascia just lateral to the rectus sheath, which was identified by pinching the abdominal wall after it was mobilized. Fat was visualized to be protruding from the clyde in the fascia. The incision was extended from the cephalad and caudad. Care was taken to keep the plane of dissection above any underlying muscle that was identified. The inguinal ligament was left intact. After incising the fascia, dissection was then carried out laterally in the plane underneath the external oblique fascia toward the anterior axillary line to create additional advancement of the midline abdominal fascia. As noted the contralateral side, patient had poor quality of her external oblique muscles. Debridement of Skin, Muscle, Fascia - Non-Necrotizing We assessed the dermis, subcutaneous tissue, muscle and fascia. Wound edges appeared non-viable and Non-Necrotizing . We now proceeded with debridement of all non-viable dermis, subcutaneous tissue, muscle and fascia. This debridement was performed with a combination of sharp and electrocautery removal. Following debridement, all muscle and fascial edges appeared viable with bleeding and firing response to electrocautery. Hemostasis was obtained. Fascial Closure We now proceeded with anterior fascial closure. A #1 STRATAFIX symmetric PDS suture was run superiorly. This was repeated inferiorly until the defect was closed. Mesh Implantation Next, the fascial closure was assessed. It appeared excellent and tension-free. Given her substantial previous hernia history, the decision was made to proceed with an onlay mesh of 30 x 30 [place] Enform mesh. This mesh was placed in Ligia fashion and secured circumferentially with a continuous running #1 STRATAFIX suture. Following this, several absorber tack tackers were utilized to ensure that the mesh was then adequate apposition with the anterior sheath of the abdomen. Additionally, mesh placement fully covered the incision sites of the myocutaneous advancement flaps. Mesh apposition and hernia repair were then assessed. Repair and apposition appeared excellent. Two 19-[place] Ivan drains were placed in the subcutaneous space. Central Panniculectomy Next, the anterior abdominal wall was assessed. There appeared to be substantial redundancy of the central abdominal subcutaneous tissue and dermis secondary to the large, now reduced, abdominal wall hernia. Given the redundancy of the tissue in this region, the decision was made to proceed with a central panniculectomy. Both edges of the incision were then assessed and marked to ensure it would meet in the midline margin tension free. These areas were marked. Next, skin flaps were excised utilizing a scalpel. The pannus was passed off the table as specimen. This region was copiously irrigated with several liters of warm saline and hemostasis was confirmed. Two of Vistaseal was applied to the surgical field. A preliminary sponge needle and insturment count was performed a 38 nd was correct. The skin flaps were approximated and sutured together in several layers: Running 3-0 Monocryl for armando's fascia and interrupted 3-0 Vicryl for the deep dermis. Shilpa were used to close the skin. An incisional vac (38 cm x 3 cm x 1 cm) was applied. Conclusion The needle, sponge and instrument counts were correct. The patient tolerated the procedure and the anesthesia well without any major complications. The peak airway pressures were observed and deemed within normal limits. The patients was transported to the post-anesthesia care unit in stable condition. I was present for the entire duration of the procedure. Surgical Anatomy [facility] [place] 08-07-2024 History and physical note Images from the original note were not included. Department of General Surgery Surgical Service - 4 Resident H&P Note 08/07/2024 CHIEF COMPLAINT: Chief Complaint Patient presents with Abdominal Pain Present for abdominal pain and not being able to keep anything down since Tuesday night. Hx of hiatal hernia. Has surgery for it scheduled in August. Reason for Consult: HISTORY OF PRESENT ILLNESS: Mel Wall is a 39 y.o. female with significant past history of bile reflux gastritis s/p biliopancreatic diversion, and PSHx of cholecystectomy, appendectomy and multiple hernia repairs who presents as a transfer from [facility] for hernia repair and appendicitis. Surgery was consulted for evaluation of hernia repair and acute appendicitis identified on CT scan. Patient reports right lower quadrant abdominal pain began last Friday 08/03. Patient reports pain has progressively worsened. Patient reports nausea and vomiting that began on Tuesday. Patient reports last episode of vomiting was earlier today. Patient denies passing gas and bowel movement since Tuesday. Patient reports skin overlying hernia on right side feels warmer than the rest of her abdomen. Patient denies being on a blood thinner, tobacco use, alcohol use and illicit substance use. Patient had previously planned abdominal wall reconstruction with Dr. Taylor for later this year. On evaluation patient was afebrile and hemodynamically stable. Labs reviewed significant for: WBC 11.8, hemoglobin 12.9, creatinine 0.52, lactic acid 1.2. CT abdomen pelvis with contrast demonstrated Large ventral hernia containing small bowel and right colon, There is a tubular fluid-filled structure in the right hand side with surrounding streak-like densities concerning for acute appendicitis. Past Medical History: Diagnosis Date Anxiety Bile reflux gastritis Bipolar affective (HCC) Depression Morbid obesity, unspecified obesity type (HCC) Past Surgical History: Procedure Laterality Date APPENDECTOMY BILIOPANCREATIC DIVERSION 10/23/2008 Sherie @ [place]; janel-en-y duodenojejunostomy for bile reflux CHOLECYSTECTOMY 02/2007 lap COLONOSCOPY N/A 11/29/2023 [facility]; repeat in 11/2033 EXPLORATORY LAPAROTOMY 06/10/2019 Veronica @ [facility]; ex lap, WAI INCISION AND DRAINAGE OF WOUND 08/09/2013 [place]; I&D of surgical incision of LLQ INCISIONAL HERNIA REPAIR 10/20/2017 [place]; open primary repair INCISIONAL HERNIA REPAIR 07/12/2018 [place]; open w/ mesh INCISIONAL HERNIA REPAIR 09/26/2018 [place]; lap w/ mesh INCISIONAL HERNIA REPAIR 03/11/2020 ; repair w/ mesh excision, mesh replacement (Vent[facility]ight St Mesh w/ Echo), [facility]AI [facility]; open repair w/ mesh SOFT TISSUE MASS EXCISION 08/02/2013 [place]; STM excision of LLQ TONSILLECTOMY Medications Prior to Admission: No current facility-administered medications for this encounter. Current Outpatient Medications Medication Sig Dispense Refill acetaminophen (Tylenol) 325 MG tablet Take 650 mg by mouth every 6 hours as needed for mild pain (1-3), moderate pain (4-6), headaches or fever. albuterol 108 (90 Base) MCG/ACT inhaler Inhale 2 puffs every 4 hours as needed for wheezing or shortness of breath. FLUoxetine (PROzac) 20 MG capsule Take 20 mg by mouth in the morning. ibuprofen 800 MG tablet Take 800 mg by mouth every 6 hours as needed. methocarbamol (Robaxin) 750 MG tablet Take 1 tablet (750 mg) by mouth 3 times daily as needed for muscle spasms for up to 10 days. 30 tablet 0 phentermine (Adipex-P) 37.5 MG tablet Take 1 tablet (37.5 mg) by mouth every morning (before breakfast). 30 tablet 0 phentermine (Adipex-P) 37.5 MG tablet Take 1 tablet (37.5 mg) by mouth every morning (before breakfast). 30 tablet 0 Allergies: Ketorolac, Ondansetron, and Seasonal Social History Socioeconomic History Marital status: Single Tobacco Use Smoking status: Former Types: Cigarettes Smokeless tobacco: Never Substance and Sexual Activity Alcohol use: Not Currently Drug use: Yes Frequency: 2.0 times per week Types: Marijuana Comment: edibles Sexual activity: Not Currently Social Drivers of Health Financial Resource Strain: High Risk (04/24/2024) Overall Financial Resource Strain (CARDIA) Difficulty of Paying Living Expenses: Very hard Food Insecurity: Patient Declined (04/26/2024) Hunger Vital Sign Worried About Running Out of Food in the Last Year: Patient declined Ran Out of Food in the Last Year: Patient declined Recent Concern: Food Insecurity - Food Insecurity Present (04/24/2024) Hunger Vital Sign Worried About Running Out of Food in the Last Year: Often true Ran Out of Food in the Last Year: Often true Transportation Needs: Patient Declined (04/26/2024) PRAPARE - Transportation Lack of Transportation (Medical): Patient declined Lack of Transportation (Non-Medical): Patient declined Recent Concern: Transportation Needs - Unmet Transportation Needs (04/24/2024) PRAPARE - Transportation Lack of Transportation (Medical): Yes Lack of Transportation (Non-Medical): Yes Physical Activity: Sufficiently Active (04/24/2024) Exercise Vital Sign Days of Exercise per Week: 7 days Minutes of Exercise per Session: 60 min Stress: Stress Concern Present (04/24/2024) [employer] - Occupational Stress Questionnaire Feeling of Stress : Very much Social Connections: Moderately Integrated (04/24/2024) Social Connection and Isolation Panel [NHANES] Frequency of Communication with Friends and Family: Twice a week Frequency of Social Gatherings with Friends and Family: Once a week Attends Adventism Services: More than 4 times per year Active Member of Clubs or Organizations: No Attends Club or Organization Meetings: More than 4 times per year Marital Status: Intimate Partner Violence: Patient Declined (04/26/2024) Humiliation, Afraid, Rape, and Kick questionnaire Fear of Current or Ex-Partner: Patient declined Emotionally Abused: Patient declined Physically Abused: Patient declined Sexually Abused: Patient declined Housing Stability: Unknown (04/26/2024) Housing Stability Vital Sign Unable to Pay for Housing in the Last Year: Patient declined Number of Times Moved in the Last Year: 1 Homeless in the Last Year: No Recent Concern: Housing Stability - High Risk (04/24/2024) Housing Stability Vital Sign Unable to Pay for Housing in the Last Year: Yes Number of Times Moved in the Last Year: 1 Homeless in the Last Year: No Family History Problem Relation Name Age of Onset Hypertension Father Diabetes Father REVIEW OF SYSTEMS: Review of Systems Constitutional: Positive for appetite change. Negative for chills and fever. Respiratory: Negative for cough, chest tightness and shortness of breath. Cardiovascular: Negative for chest pain and palpitations. Gastrointestinal: Positive for abdominal pain, nausea and vomiting. Large ventral hernia Skin: Positive for color change. Neurological: Negative for dizziness and light-headedness. PHYSICAL EXAM: Vitals: 08/07/24 0813 BP: 112/61 Pulse: 70 Resp: 18 Temp: 36.5 C (97.7 F) SpO2: 98% No intake/output data recorded. CONSTITUTIONAL: awake, alert, cooperative, no apparent distress HEENT: No scleral icterus, EOMI NECK: Supple, no thyromegaly LUNGS: No increased work of breathing, good air exchange CARDIOVASCULAR: Well perfused, RRR ABDOMEN: Soft, large ventral hernia, right-sided tenderness worse in right lower quadrant over hernia site. Rebound tenderness in right lower quadrant. Right lower quadrant warm to touch with skin color changes overlying the hernia site. Added ischemia following the GENITAL/URINARY: Not examined MUSCULOSKELETAL: There is no redness, warmth, or swelling of the joints. Full range of motion noted. NEUROLOGIC: Awake, alert, oriented to name, place and time. SKIN: skin changes overlying hernia site, otherwise normal skin color, texture, no redness, warmth, or swelling DATA: CBC: Lab Results Component Value Date WBC 11.8 (H) 08/07/2024 RBC 4.13 08/07/2024 HGB 12.9 08/07/2024 HCT 38.2 08/07/2024 MCV 92.5 08/07/2024 MCH 31.2 08/07/2024 MCHC 33.8 08/07/2024 RDW 12.5 08/07/2024 PLT 301 08/07/2024 MPV 8.8 (L) 08/07/2024 BMP: Lab Results Component Value Date NA 136 08/07/2024 K 4.2 08/07/2024 CL 108 (H) 08/07/2024 CO2 20 (L) 08/07/2024 BUN 10 08/07/2024 CREATININE 0.52 08/07/2024 CALCIUM 8.8 08/07/2024 GLUCOSE 117 (H) 08/07/2024 Hepatic Function Panel: Lab Results Component Value Date ALKPHOS 39 08/07/2024 ALT 11 08/07/2024 AST 18 08/07/2024 PROT 6.4 08/07/2024 BILITOT 0.3 08/07/2024 PT/INR: Lab Results Component Value Date PROTIME 10.7 08/07/2024 INR 0.9 08/07/2024 Troponin: No results found for: TROPONINI LIPASE: Lab Results Component Value Date LIPASE 117 08/07/2024 IMAGING: XR chest 1 view Narrative: [facility] 1985 [id number] Exam Date/Time: 08/07/2024 08:51 Procedure: XR CHEST 1 VIEW Ordering Provider: PAN NICHOLAS Reason For Exam: pre procedure EXAMINATION: Portable chest INDICATION: pre procedure FINDINGS: There is no focal consolidation, sizable pleural effusion or pneumothorax. The cardiac silhouette and mediastinum are within normal limits. Small osteophytes of the spine are present at multiple levels with mild scoliosis. Impression: No radiographic evidence of acute cardiopulmonary process. Report Dictated on Electronically Signed By: Steph Zaragoza MD Electronically Signed Date/Time: 08/07/2024 9:14 AM EDT ECG 12 lead Ectopic atrial rhythm Low voltage, precordial leads CT abdomen pelvis w contrast Patient Name: MEL WALL : 1985 [facility]#: [id number] Exam Date/Time: 08/07/2024 03:34 Procedure: CT ABDOMEN PELVIS W CONTRAST Ordering Provider: PAN NICHOLAS Reason For Exam: pain and vomiting associated with abdominal hernia HISTORY: Pain and vomiting associated with ventral hernia Noncontrast sections performed through the abdomen and pelvis. Dose reduction was employed with automatic exposure control. Comparison study from 07/08/2024 FINDINGS: 1. Large ventral hernia containing small bowel and right colon---moderate stool is present in the colon with prior small bowel surgery changes. There is a tubular fluid-filled structure in the right hand side with surrounding streak-like densities most suggestive of ACUTE APPENDICITIS (best seen on sagittal reconstructions). 2. Punctate right renal calculi, bilateral renal cortical lesions unchanged since last study one month ago with prior cholecystectomy, tubal ligation clips with tampon with no free fluid or free air in the pelvis. Report Dictated on Electronically Signed By: Satish Devine MD Electronically Signed Date/Time: 08/07/2024 4:05 AM EDT ASSESSMENT AND PLAN: This is a 39 y.o. female with PSHx of biliopancreatic diversion, cholecystectomy, appendectomy and multiple hernia repairs that presents with large ventral hernia and possible stump appendicitis, bowel ischemia and bowel obstruction. - Plan for OR for exploratory laparotomy with abdominal wall reconstruction - Consent obtained - NPO diet, IVF - Continue IV antibiotics - Plan for surgery to admit Patient discussed with attending, Dr. Taylor. Neri Redd MD General Surgery PGY-1 Pager #[phone] ATTESTATION The patient was seen and examined. I have reviewed the patients presentation, histories, imaging and serology studies. I agree with the above assessment and plan. Ab: Patient has palpable tenderness of the right lower quadrant portion of the hernia. The hernia appears soft and incarcerated however patient does have rebound and involuntary guarding in the right lower quadrant. Previously noted skin changes appear to have improved mildly. Patient presents to [facility] with a chief complaint of acute on chronic abdominal pain. Patient is well-known to the general surgery team for multiple bowel obstructions secondary to large, loss of domain hernia. Patient was currently getting scheduled for elective repair within the next 4 weeks. Unfortunately, the patient presented with acute onset of 10 out of [address] scan of the abdomen and pelvis was personally reviewed and interpreted. There appears to be stranding and inflammation within the hernia sac along the right side. Radiologist noted that the patient likely has appendicitis. However, the patient states that she has a previous history of appendectomy. It is unclear what these radiographic findings represent however, given her peritoneal status, operative intervention is warranted. The risk, benefits and alternatives of an exploratory laparotomy, possible bowel resection, possible ostomy, possible component separation were discussed extensively with the patient. Additionally, we discussed the possibility of prolonged intubation and abdominal hypertension should her abdomen be closed. We also talked about the possibility of a temporary mesh abdominal closure with wound VAC closure by secondary intent. Given the complexity of her extensive hernia repair history and surgical history, we were unable to provide a clear surgical plan preoperatively. This was discussed extensively as an outpatient. Patient fully understands this and agrees. The risk, benefits and alternatives were extensively discussed and informed written consent was obtained. We will await OR availability to proceed with operative intervention. --------- I personally performed the evaluation and management of Mel Wall in the development of a treatment plan for this patient. I personally interviewed the patient and performed an individual physical examination. In addition, I discussed the patient's condition and treatment options with them. I have also reviewed and agree with the past medical, family and social history unless otherwise noted. All of the patient's questions were answered. I personally performed the face to face encounter, physical exam, reviewing the medical history, coordinating the patient's care, counseling/educating the patient, ordering prescriptions/medications/tests/proc edures, interpreting results and documenting clinical information in the patient's electronic health record on the day of the encounter. This case required a high degree of medical decision making and resulted in emergency surgery. Patient Care Team: Serafin Taylor DO as Surgeon (General Surgery) [facility] 08-07-2024 History and physical note Images from the original note were not included. Department of General Surgery Surgical Service - 4 Resident H&P Note 08/07/2024 CHIEF COMPLAINT: Chief Complaint Patient presents with Abdominal Pain Present for abdominal pain and not being able to keep anything down since Tuesday night. Hx of hiatal hernia. Has surgery for it scheduled in August. Reason for Consult: HISTORY OF PRESENT ILLNESS: Mel Wall is a 39 y.o. female with significant past history of bile reflux gastritis s/p biliopancreatic diversion, and PSHx of cholecystectomy, appendectomy and multiple hernia repairs who presents as a transfer from [facility] for hernia repair and appendicitis. Surgery was consulted for evaluation of hernia repair and acute appendicitis identified on CT scan. Patient reports right lower quadrant abdominal pain began last Friday 08/03. Patient reports pain has progressively worsened. Patient reports nausea and vomiting that began on Tuesday. Patient reports last episode of vomiting was earlier today. Patient denies passing gas and bowel movement since Tuesday. Patient reports skin overlying hernia on right side feels warmer than the rest of her abdomen. Patient denies being on a blood thinner, tobacco use, alcohol use and illicit substance use. Patient had previously planned abdominal wall reconstruction with Dr. Taylor for later this year. On evaluation patient was afebrile and hemodynamically stable. Labs reviewed significant for: WBC 11.8, hemoglobin 12.9, creatinine 0.52, lactic acid 1.2. CT abdomen pelvis with contrast demonstrated Large ventral hernia containing small bowel and right colon, There is a tubular fluid-filled structure in the right hand side with surrounding streak-like densities concerning for acute appendicitis. Past Medical History: Diagnosis Date Anxiety Bile reflux gastritis Bipolar affective (HCC) Depression Morbid obesity, unspecified obesity type (HCC) Past Surgical History: Procedure Laterality Date APPENDECTOMY BILIOPANCREATIC DIVERSION 10/23/2008 Sherie @ [place]; janel-en-y duodenojejunostomy for bile reflux CHOLECYSTECTOMY 02/2007 lap COLONOSCOPY N/A 11/29/2023 [facility]; repeat in 11/2033 EXPLORATORY LAPAROTOMY 06/10/2019 Veronica @ [facility]; ex lap, WAI INCISION AND DRAINAGE OF WOUND 08/09/2013 [place]; I&D of surgical incision of LLQ INCISIONAL HERNIA REPAIR 10/20/2017 [facility]; open primary repair INCISIONAL HERNIA REPAIR 07/12/2018 [facility]; open w/ mesh INCISIONAL HERNIA REPAIR 09/26/2018 [place]; lap w/ mesh INCISIONAL HERNIA REPAIR 03/11/2020 ; repair w/ mesh excision, mesh replacement (Ventralight St Mesh w/ Echo), WAI INCISIONAL HERNIA REPAIR 07/19/2015 [place]; open repair w/ mesh SOFT TISSUE MASS EXCISION 08/02/2013 [place]; STM excision of LLQ TONSILLECTOMY Medications Prior to Admission: No current facility-administered medications for this encounter. Current Outpatient Medications Medication Sig Dispense Refill acetaminophen (Tylenol) 325 MG tablet Take 650 mg by mouth every 6 hours as needed for mild pain (1-3), moderate pain (4-6), headaches or fever. albuterol 108 (90 Base) MCG/ACT inhaler Inhale 2 puffs every 4 hours as needed for wheezing or shortness of breath. FLUoxetine (PROzac) 20 MG capsule Take 20 mg by mouth in the morning. ibuprofen 800 MG tablet Take 800 mg by mouth every 6 hours as needed. methocarbamol (Robaxin) 750 MG tablet Take 1 tablet (750 mg) by mouth 3 times daily as needed for muscle spasms for up to 10 days. 30 tablet 0 phentermine (Adipex-P) 37.5 MG tablet Take 1 tablet (37.5 mg) by mouth every morning (before breakfast). 30 tablet 0 phentermine (Adipex-P) 37.5 MG tablet Take 1 tablet (37.5 mg) by mouth every morning (before breakfast). 30 tablet 0 Allergies: Ketorolac, Ondansetron, and Seasonal Social History Socioeconomic History Marital status: Single Tobacco Use Smoking status: Former Types: Cigarettes Smokeless tobacco: Never Substance and Sexual Activity Alcohol use: Not Currently Drug use: Yes Frequency: 2.0 times per week Types: Marijuana Comment: edibles Sexual activity: Not Currently Social Drivers of Health Financial Resource Strain: High Risk (04/24/2024) Overall Financial Resource Strain (CARDIA) Difficulty of Paying Living Expenses: Very hard Food Insecurity: Patient Declined (04/26/2024) Hunger Vital Sign Worried About Running Out of Food in the Last Year: Patient declined Ran Out of Food in the Last Year: Patient declined Recent Concern: Food Insecurity - Food Insecurity Present (04/24/2024) Hunger Vital Sign Worried About Running Out of Food in the Last Year: Often true Ran Out of Food in the Last Year: Often true Transportation Needs: Patient Declined (04/26/2024) PRAPARE - Transportation Lack of Transportation (Medical): Patient declined Lack of Transportation (Non-Medical): Patient declined Recent Concern: Transportation Needs - Unmet Transportation Needs (04/24/2024) PRAPARE - Transportation Lack of Transportation (Medical): Yes Lack of Transportation (Non-Medical): Yes Physical Activity: Sufficiently Active (04/24/2024) Exercise Vital Sign Days of Exercise per Week: 7 days Minutes of Exercise per Session: 60 min Stress: Stress Concern Present (04/24/2024) [employer] [place] [employer] - Occupational Stress Questionnaire Feeling of Stress : Very much Social Connections: Moderately Integrated (04/24/2024) Social Connection and Isolation Panel [NHANES] Frequency of Communication with Friends and Family: Twice a week Frequency of Social Gatherings with Friends and Family: Once a week Attends [employer]ism Services: More than 4 times per year Active Member of Clubs or Organizations: No Attends Club or Organization Meetings: More than 4 times per year Marital Status: Intimate Partner Violence: Patient Declined (04/26/2024) Humiliation, Afraid, Rape, and Kick questionnaire Fear of Current or Ex-Partner: Patient declined Emotionally Abused: Patient declined Physically Abused: Patient declined Sexually Abused: Patient declined Housing Stability: Unknown (04/26/2024) Housing Stability Vital Sign Unable to Pay for Housing in the Last Year: Patient declined Number of Times Moved in the Last Year: 1 Homeless in the Last Year: No Recent Concern: Housing Stability - High Risk (04/24/2024) Housing Stability Vital Sign Unable to Pay for Housing in the Last Year: Yes Number of Times Moved in the Last Year: 1 Homeless in the Last Year: No Family History Problem Relation Name Age of Onset Hypertension Father Diabetes Father REVIEW OF SYSTEMS: Review of Systems Constitutional: Positive for appetite change. Negative for chills and fever. Respiratory: Negative for cough, chest tightness and shortness of breath. Cardiovascular: Negative for chest pain and palpitations. Gastrointestinal: Positive for abdominal pain, nausea and vomiting. Large ventral hernia Skin: Positive for color change. Neurological: Negative for dizziness and light-headedness. PHYSICAL EXAM: Vitals: 08/07/24 08 BP: 112/61 Pulse: 70 Resp: 18 Temp: 36.5 C (97.7 F) SpO2: 98% No intake/output data recorded. CONSTITUTIONAL: awake, alert, cooperative, no apparent distress HEENT: No scleral icterus, EOMI NECK: Supple, no thyromegaly LUNGS: No increased work of breathing, good air exchange CARDIOVASCULAR: Well perfused, RRR ABDOMEN: Soft, large ventral hernia, right-sided tenderness worse in right lower quadrant over hernia site. Rebound tenderness in right lower quadrant. Right lower quadrant warm to touch with skin color changes overlying the hernia site. Added ischemia following the GENITAL/URINARY: Not examined MUSCULOSKELETAL: There is no redness, warmth, or swelling of the joints. Full range of motion noted. NEUROLOGIC: Awake, alert, oriented to name, place and time. SKIN: skin changes overlying hernia site, otherwise normal skin color, texture, no redness, warmth, or swelling DATA: CBC: Lab Results Component Value Date WBC 11.8 (H) 08/07/2024 RBC 4.13 08/07/2024 HGB 12.9 08/07/2024 HCT 38.2 08/07/2024 MCV 92.5 08/07/2024 MCH 31.2 08/07/2024 MCHC 33.8 08/07/2024 RDW 12.5 08/07/2024 PLT 301 08/07/2024 MPV 8.8 (L) 08/07/2024 BMP: Lab Results Component Value Date NA 136 08/07/2024 K 4.2 08/07/2024 CL 108 (H) 08/07/2024 CO2 20 (L) 08/07/2024 BUN 10 08/07/2024 CREATININE 0.52 08/07/2024 CALCIUM 8.8 08/07/2024 GLUCOSE 117 (H) 08/07/2024 Hepatic Function Panel: Lab Results Component Value Date ALKPHOS 39 08/07/2024 ALT 11 08/07/2024 AST 18 08/07/2024 PROT 6.4 08/07/2024 BILITOT 0.3 08/07/2024 PT/INR: Lab Results Component Value Date PROTIME 10.7 08/07/2024 INR 0.9 08/07/2024 Troponin: No results found for: TROPONINI LIPASE: Lab Results Component Value Date LIPASE 117 08/07/2024 IMAGING: XR chest 1 view Narrative: Patient Name: MEL WALL : 1985 Exam Date/Time: 08/07/2024 08:51 Procedure: XR CHEST 1 VIEW Ordering Provider: PAN NICHOLAS Reason For Exam: pre procedure EXAMINATION: Portable chest INDICATION: pre procedure FINDINGS: There is no focal consolidation, sizable pleural effusion or pneumothorax. The cardiac silhouette and mediastinum are within normal limits. Small osteophytes of the spine are present at multiple levels with mild scoliosis. Impression: No radiographic evidence of acute cardiopulmonary process. Report Dictated on Electronically Signed By: Steph Zaragoza MD Electronically Signed Date/Time: 08/07/2024 9:14 AM EDT ECG 12 lead Ectopic atrial rhythm Low voltage, precordial leads CT abdomen pelvis w contrast Patient Name: MEL WALL : 1985 Exam Date/Time: 08/07/2024 03:34 Procedure: CT ABDOMEN PELVIS W CONTRAST Ordering Provider: PAN NICHOLAS Reason For Exam: pain and vomiting associated with abdominal hernia HISTORY: Pain and vomiting associated with ventral hernia Noncontrast sections performed through the abdomen and pelvis. Dose reduction was employed with automatic exposure control. Comparison study from 07/08/2024 FINDINGS: 1. Large ventral hernia containing small bowel and right colon---moderate stool is present in the colon with prior small bowel surgery changes. There is a tubular fluid-filled structure in the right hand side with surrounding streak-like densities most suggestive of ACUTE APPENDICITIS (best seen on sagittal reconstructions). 2. Punctate right renal calculi, bilateral renal cortical lesions unchanged since last study one month ago with prior cholecystectomy, tubal ligation clips with tampon with no free fluid or free air in the pelvis. Report Dictated on Electronically Signed By: Satish Devine MD Electronically Signed Date/Time: 08/07/2024 4:05 AM EDT ASSESSMENT AND PLAN: This is a 39 y.o. female with PSHx of biliopancreatic diversion, cholecystectomy, appendectomy and multiple hernia repairs that presents with large ventral hernia and possible stump appendicitis, bowel ischemia and bowel obstruction. - Plan for OR for exploratory laparotomy with abdominal wall reconstruction - Consent obtained - NPO diet, IVF - Continue IV antibiotics - Plan for surgery to admit Patient discussed with attending, Dr. Taylor. Neri Redd MD General Surgery PGY-1 Pager #[phone] ATTESTATION The patient was seen and examined. I have reviewed the patients presentation, histories, imaging and serology studies. I agree with the above assessment and plan. Ab: Patient has palpable tenderness of the right lower quadrant portion of the hernia. The hernia appears soft and incarcerated however patient does have rebound and involuntary guarding in the right lower quadrant. Previously noted skin changes appear to have improved mildly. Patient presents to [facility] with a chief complaint of acute on chronic abdominal pain. Patient is well-known to the general surgery team for multiple bowel obstructions secondary to large, loss of domain hernia. Patient was currently getting scheduled for elective repair within the next 4 weeks. Unfortunately, the patient presented with acute onset of 10 out of [address] scan of the abdomen and pelvis was personally reviewed and interpreted. There appears to be stranding and inflammation within the hernia sac along the right side. Radiologist noted that the patient likely has appendicitis. However, the patient states that she has a previous history of appendectomy. It is unclear what these radiographic findings represent however, given her peritoneal status, operative intervention is warranted. The risk, benefits and alternatives of an exploratory laparotomy, possible bowel resection, possible ostomy, possible component separation were discussed extensively with the patient. Additionally, we discussed the possibility of prolonged intubation and abdominal hypertension should her abdomen be closed. We also talked about the possibility of a temporary mesh abdominal closure with wound VAC closure by secondary intent. Given the complexity of her extensive hernia repair history and surgical history, we were unable to provide a clear surgical plan preoperatively. This was discussed extensively as an outpatient. Patient fully understands this and agrees. The risk, benefits and alternatives were extensively discussed and informed written consent was obtained. We will await OR availability to proceed with operative intervention. --------- I personally performed the evaluation and management of Mel Wall in the development of a treatment plan for this patient. I personally interviewed the patient and performed an individual physical examination. In addition, I discussed the patient's condition and treatment options with them. I have also reviewed and agree with the past medical, family and social history unless otherwise noted. All of the patient's questions were answered. I personally performed the face to face encounter, physical exam, reviewing the medical history, coordinating the patient's care, counseling/educating the patient, ordering prescriptions/medications/tests/proc edures, interpreting results and documenting clinical information in the patient's electronic health record on the day of the encounter. This case required a high degree of medical decision making and resulted in emergency surgery. Patient Care Team: Serafin Taylor DO as Surgeon (General Surgery) documented in this encounter [facility] 08-07-2024 Emergency department Note Patient arrives to [facility] ED, patient reporting 8/10 pain at this time, patient A&Ox4 GCS 15, transferred from [facility] for hernia repair and appendicitis, patient changed into hospital gown and call dexter within reach [facility] 08-07-2024 Emergency department Note Patient arrives to [facility] ED, patient reporting 8/10 pain at this time, patient A&Ox4 GCS 15, transferred from [facility] for hernia repair and appendicitis, patient changed into hospital gown and call dexter within reach Report given to Chad hardware trainer with [facility] ambulance. Pt transferred via cart in stable condition. IV site to LAC without redness or edema. Moira Galeano RN 08/07/24 0744 Emergency Department Encounter [facility] EMERGENCY DEPT Patient: Mel Wall : 1985 Date of Evaluation: 08/07/2024 ED Provider: Heath Pan MD CHIEF COMPLAINT: Abdominal pain Chief Complaint Patient presents with Abdominal Pain Present for abdominal pain and not being able to keep anything down since Tuesday night. Hx of hiatal hernia. Has surgery for it scheduled in August. HPI: Mel Wall is a 39 y.o. female with PMH reports history of known abdominal hernia, presents with concern for abdominal pain. Patient reports chronic hernia involving the right side of her abdomen, scheduled for surgery in August, she reports for the last 3 days she has had pain associated with her hernia with nausea vomiting, no longer having bowel movement or passing gas, she denies fever chills, or other associated symptoms or concerns, reports she has been unable to tolerate oral antiemetic or analgesic at home. REVIEW OF SYSTEMS: Pertinent positives and negatives as per HPI. HISTORIES: PAST MEDICAL HISTORY: as per HPI SOCIAL HISTORY: Per EMR history of tobacco use PHYSICAL EXAM: Vital signs: reviewed General: Appears uncomfortable, nontoxic Cardiovascular: regular rhythm, normal rate Respiratory: non-labored breathing, no tachypnea Gastrointestinal: soft, non-distended, large right sided soft abdominal hernia with tenderness associated, nonreducible, no overlying skin change, no rigidity or guarding Neurologic: alert, no obvious neurologic deficits MEDICAL DECISION MAKING: Medications HYDROmorphone (Dilaudid) injection 1 mg (1 mg IntraVENous Given 08/07/24 023) prochlorperazine (Compazine) injection 10 mg (10 mg IntraVENous Given 08/07/24 0239) sodium chloride 0.9 % bolus 1,000 mL (1,000 mL IntraVENous New Bag 08/07/24237) HYDROmorphone (Dilaudid) injection 0.5 mg (0.5 mg IntraVENous Given 08/07/24 0501) Mel Wall is a 39 y.o. female who presents as above, pain associated with abdominal hernia, nausea vomiting, arrives afebrile with reassuring vitals, abdomen is nonperitoneal, presentation concerning for bowel obstruction, incarcerated hernia, discussed management, patient agrees to obtain workup to evaluate including CT abdomen pelvis, labs evaluation, treat with Dilaudid, Zofran. Labs obtained, interpreted by me, notable for no renal dysfunction, hCG negative, WBC 11.8 CT abdomen pelvis per radiologist interpretation large ventral hernia containing small bowel and right colon moderate stool is present in the colon with prior small bowel surgery changes there is tubular fluid-filled structure in the right hand side with surrounding streak-like densities most suggestive of acute appendicitis Patient informed of findings, she reports symptoms remain poorly controlled, she reports she has prior appendectomy, treated with additional Dilaudid, will treat with Zosyn for intra-abdominal infectious coverage. Patient reports persistent symptoms, I discussed with on-call surgeon Dr. Kimble including patient's history, exam, workup results, agrees with ER to ER transfer to [facility] emergency department for general surgery consult to evaluate and determine further management, patient informed of recommendations, and agree with plan, will be transferred by ambulance, I discussed with ED resident Dr. Newell on behalf of accepting attending Dr. Munoz, in agreement with plan, stable for transfer. DIAGNOSIS: Abdominal pain DISPOSITION: Transfer to [facility] emergency department I, Dr. Pan, am the industrial equipment wirer of record. Comment: Please note this report has been produced using speech recognition software and may contain errors related to that system including errors in grammar, punctuation, and spelling, as well as words and phrases that may be inappropriate. If there are any questions or concerns please feel free to contact the dictating provider for clarification. Heath Pan MD [employer] Heath Pan MD 08/07/24 0553 Heath Pan MD 08/07/24 0701 EMERGENCY DEPARTMENT ENCOUNTER Pt Name: Mel Wall Birthdate 1985 Date of evaluation: 08/07/2024 ED Physician: Darrin Horowitz DO CHIEF COMPLAINT(S): Abdominal pain since Tuesday. HISTORY OF PRESENT ILLNESS: The patient is a 39-year-old female with a past surgical history of cholecystectomy and appendectomy in 2005, presenting with abdominal pain that began on Tuesday. The pain was described as starting spontaneously, without any precipitating activities or recent procedures. Accompanying symptoms include the absence of bowel movement since Tuesday and the inability to pass gas since the same day. The patient denies fever, chills, chest pain, or shortness of breath. She reports that general surgeon Dr. Mcguire is scheduled to perform her hernia surgery on September 03. The patient denies dysuria, hematuria, or other associated symptoms. ADDITIONAL HISTORY OBTAINED FROM SOURCE OTHER THAN PATIENT: Per the patient, there is a history of scheduled hernia surgery on September 03 ALLERGIES: The patient reports allergies to Zofran and Toradol, which caused hives and difficulty breathing during . REVIEW OF SYSTEMS: - Gastrointestinal: Positive for abdominal pain, negative for bowel movement or gas passage since Tuesday. - General: Denies fever, chills. - Cardiovascular/Respiratory: Denies chest pain or shortness of breath. - Genitourinary: Denies dysuria, hematuria. PAST MEDICAL HISTORY Past Medical History: Diagnosis Date Anxiety Bile reflux gastritis Bipolar affective (HCC) Depression Morbid obesity, unspecified obesity type (HCC) SURGICAL HISTORY Past Surgical History: Procedure Laterality Date APPENDECTOMY BILIOPANCREATIC DIVERSION 10/23/2008 Sherie @ [facility]; janel-en-y duodenojejunostomy for bile reflux CHOLECYSTECTOMY 02/2007 lap COLONOSCOPY N/A 11/29/2023 [facility]; repeat in 11/2033 EXPLORATORY LAPAROTOMY 06/10/2019 Veronica @ [facility]; ex lap, [facility] INCISION AND DRAINAGE OF WOUND 08/09/2013 [facility]; I&D of surgical incision of LLQ INCISIONAL HERNIA REPAIR 10/20/2017 [place]; open primary repair INCISIONAL HERNIA REPAIR 07/12/2018 [place]; open w/ mesh INCISIONAL HERNIA REPAIR 09/26/2018 [facility]; lap w/ mesh INCISIONAL HERNIA REPAIR 03/11/2020 [facility]; repair w/ mesh excision, mesh replacement ([facility] Mesh w/ Echo), WAI INCISIONAL HERNIA REPAIR 07/19/2015 [place]; open repair w/ mesh SOFT TISSUE MASS EXCISION 08/02/2013 [facility]; STM excision of LLQ TONSILLECTOMY CURRENT MEDICATIONS Previous Medications ACETAMINOPHEN (TYLENOL) 325 MG TABLET Take 650 mg by mouth every 6 hours as needed for mild pain (1-3), moderate pain (4-6), headaches or fever. ALBUTEROL 108 (90 BASE) MCG/ACT INHALER Inhale 2 puffs every 4 hours as needed for wheezing or shortness of breath. FLUOXETINE (PROZAC) 20 MG CAPSULE Take 20 mg by mouth in the morning. IBUPROFEN 800 MG TABLET Take 800 mg by mouth every 6 hours as needed. METHOCARBAMOL (ROBAXIN) 750 MG TABLET Take 1 tablet (750 mg) by mouth 3 times daily as needed for muscle spasms for up to 10 days. PHENTERMINE (ADIPEX-P) 37.5 MG TABLET Take 1 tablet (37.5 mg) by mouth every morning (before breakfast). PHENTERMINE (ADIPEX-P) 37.5 MG TABLET Take 1 tablet (37.5 mg) by mouth every morning (before breakfast). ALLERGIES Ketorolac, Ondansetron, and Seasonal FAMILY HISTORY Family History Problem Relation Name Age of Onset Hypertension Father Diabetes Father SOCIAL HISTORY Social History Socioeconomic History Marital status: Single Tobacco Use Smoking status: Former Types: Cigarettes Smokeless tobacco: Never Substance and Sexual Activity Alcohol use: Not Currently Drug use: Yes Frequency: 2.0 times per week Types: Marijuana Comment: edibles Sexual activity: Not Currently Social Drivers of Health Financial Resource Strain: High Risk (04/24/2024) Overall Financial Resource Strain (CARDIA) Difficulty of Paying Living Expenses: Very hard Food Insecurity: Patient Declined (04/26/2024) Hunger Vital Sign Worried About Running Out of Food in the Last Year: Patient declined Ran Out of Food in the Last Year: Patient declined Recent Concern: Food Insecurity - Food Insecurity Present (04/24/2024) Hunger Vital Sign Worried About Running Out of Food in the Last Year: Often true Ran Out of Food in the Last Year: Often true Transportation Needs: Patient Declined (04/26/2024) PRAPARE - Transportation Lack of Transportation (Medical): Patient declined Lack of Transportation (Non-Medical): Patient declined Recent Concern: Transportation Needs - Unmet Transportation Needs (04/24/2024) PRAPARE - Transportation Lack of Transportation (Medical): Yes Lack of Transportation (Non-Medical): Yes Physical Activity: Sufficiently Active (04/24/2024) Exercise Vital Sign Days of Exercise per Week: 7 days Minutes of Exercise per Session: 60 min Stress: Stress Concern Present (04/24/2024) [employer] [place] [employer] - Occupational Stress Questionnaire Feeling of Stress : Very much Social Connections: Moderately Integrated (04/24/2024) Social Connection and Isolation Panel [NHANES] Frequency of Communication with Friends and Family: Twice a week Frequency of Social Gatherings with Friends and Family: Once a week Attends [employer] Services: More than 4 times per year Active Member of Clubs or Organizations: No Attends Club or Organization Meetings: More than 4 times per year Marital Status: Intimate Partner Violence: Patient Declined (04/26/2024) Humiliation, Afraid, Rape, and Kick questionnaire Fear of Current or Ex-Partner: Patient declined Emotionally Abused: Patient declined Physically Abused: Patient declined Sexually Abused: Patient declined Housing Stability: Unknown (04/26/2024) Housing Stability Vital Sign Unable to Pay for Housing in the Last Year: Patient declined Number of Times Moved in the Last Year: 1 Homeless in the Last Year: No Recent Concern: Housing Stability - High Risk (04/24/2024) Housing Stability Vital Sign Unable to Pay for Housing in the Last Year: Yes Number of Times Moved in the Last Year: 1 Homeless in the Last Year: No SCREENINGS PHYSICAL EXAM ED Triage Vitals Temp Heart Rate Resp BP 08/07/242 10/29/22108/07/2422108/07/24221 36.9 C (98.5 F) 80 16 128/82 SpO2 Temp Source Heart Rate Source Patient Position 08/07/2422108/07/24 0813 08/07/24 0813 08/07/24221 99 % Oral Monitor Sitting BP Location FiO2 (%) 08/07/24221 -- Left arm Physical Exam Vitals reviewed. Constitutional: General: She is not in acute distress. Appearance: Normal appearance. She is not ill-appearing. HENT: Head: Normocephalic and atraumatic. Right Ear: External ear normal. Left Ear: External ear normal. Nose: Nose normal. Mouth/Throat: Mouth: Mucous membranes are moist. Pharynx: Oropharynx is clear. Eyes: Extraocular Movements: Extraocular movements intact. Pupils: Pupils are equal, round, and reactive to light. Cardiovascular: Rate and Rhythm: Normal rate and regular rhythm. Pulses: Normal pulses. Heart sounds: Normal heart sounds. No murmur heard. Pulmonary: Effort: Pulmonary effort is normal. Breath sounds: Normal breath sounds. No wheezing, rhonchi or rales. Abdominal: General: There is no distension. Palpations: Abdomen is soft. Tenderness: There is abdominal tenderness in the epigastric area. There is no right CVA tenderness, left CVA tenderness, guarding or rebound. Hernia: A hernia (large midline hernia) is present. Musculoskeletal: General: No swelling. Cervical back: Normal range of motion. Skin: General: Skin is warm and dry. Capillary Refill: Capillary refill takes less than 2 seconds. Findings: No rash. Neurological: Mental Status: She is alert and oriented to person, place, and time. Sensory: No sensory deficit. Motor: No weakness. DIAGNOSTIC RESULTS Procedures/EKG: EKG was reviewed by myself. Physician EKG interpretation can be found in [facility] RADIOLOGY (Per Emergency Physician): Interpretation per the Radiologist below, if available at the time of this note: XR chest 1 view Final Result No radiographic evidence of acute cardiopulmonary process. Report Dictated on Electronically Signed By: Steph Zaragoza MD Electronically Signed Date/Time: 08/07/2024 9:[address] abdomen pelvis w contrast Final Result ED BEDSIDE ULTRASOUND: Performed by ED Physician - none LABS: Labs Reviewed COMPREHENSIVE METABOLIC PANEL - Abnormal Result Value SODIUM 136 POTASSIUM 4.2 CHLORIDE 108 (*) CARBON DIOXIDE 20 (*) ANION GAP 8 UREA NITROGEN 10 CREATININE 0.52 GLUCOSE 117 (*) CALCIUM 8.8 AST (SGOT) 18 ALT 11 ALKALINE PHOSPHATASE 39 ALBUMIN 3.9 BILIRUBIN, TOTAL 0.3 TOTAL PROTEIN 6.4 eGFR >90.0 CBC (HEMOGRAM) - Abnormal Auto WBC 11.8 (*) RBC 4.13 Hemoglobin 12.9 Hematocrit 38.2 MCV 92.5 MCH 31.2 MCHC 33.8 RDW 12.5 Platelets 301 MPV 8.8 (*) LIPASE - Normal LIPASE 117 PROTHROMBIN TIME - Normal PROTHROMBIN TIME 10.7 INR 0.9 LACTIC ACID WITH REFLEX - Normal LACTIC ACID 1.2 HCG QUANTITATIVE BLOOD HCG QUANTITATIVE <2 Narrative: Values in should double every 2 to 3 days for the first 6 weeks. Elevated concentrations of human chorionic gonadotropin (hCG) measured in the first trimester of are observed in normal , but may serve as an indication of chorionic carcinoma, hydatiform mole, or multiple . Decreasing hCG concentrations indicate threatened or missed , recent termination of , ectopic , gestosis or intrauterine . Yanelis- and postmenopausal females may have detectable hCG concentrations (< or = to 14 mIU/mL) due to pituitary production of hCG. Serum follicle-stimulating hormone measurement may aid in ruling-out in this population. Cutoffs of greater than 20 to 45 mIU/mL have been suggested and are method dependent. False-elevations (called phantom human chorionic gonadotropin: hCG) may occur with patients who have human antianimal or heterophilic antibodies. Some specimens may not dilute linearly due to abnormal forms of hCG. Elevated hCG concentrations not associated with are found in patients with other diseases such as tumors of the germ cells, ovaries, bladder, pancreas, stomach, lungs, and liver. This test is not intended to detect or monitor tumors or gestational trophoblastic disease. COMPLETE URINALYSIS BLOOD TYPE AND SCREEN GEL All other labs were within normal range or not returned as of this dictation. EMERGENCY DEPARTMENT COURSE and DIFFERENTIAL DIAGNOSIS/MDM: Vitals: Vitals: 08/07/24 0222 08/07/24 0739 08/07/24 0740 08/07/24 0813 BP: 128/82 114/54 112/61 BP Location: Left arm Patient Position: Sitting Pulse: 80 80 70 Resp: 16 18 18 Temp: 36.9 C (98.5 F) 36.9 C (98.5 F) 36.5 C (97.7 F) TempSrc: Oral SpO2: 99% 98% 98% Weight: 99.8 kg (220 lb) Height: 1.651 m (5' 5) Labs and Images interpreted in ED course. All labs and imaging have been personally reviewed and interpreted by me. Shared Decision Making I will have a long discussion with the patient and/or visitors regarding risks/benefits of further testing or admission. They will be made aware of the risks/benefits in this decision and will voice understanding as able. Summary of External Notes reviewed: Summary of pertinent elements includes: Care everywhere reviewed PDMP reviewed Factors Affecting Care: Past Medical History: Diagnosis Date Anxiety Bile reflux gastritis Bipolar affective (HCC) Depression Morbid obesity, unspecified obesity type (HCC) Past Surgical History: Procedure Laterality Date APPENDECTOMY BILIOPANCREATIC DIVERSION 10/23/2008 Sherie @ [place]; janel-en-y duodenojejunostomy for bile reflux CHOLECYSTECTOMY 02/2007 lap COLONOSCOPY N/A 11/29/2023 [facility]; repeat in 11/2033 EXPLORATORY LAPAROTOMY 06/10/2019 Veronica @ [facility]; ex lap, [facility] INCISION AND DRAINAGE OF WOUND 08/09/2013 [place]; I&D of surgical incision of LLQ INCISIONAL HERNIA REPAIR 10/20/2017 [place]; open primary repair INCISIONAL HERNIA REPAIR 07/12/2018 [facility]; open w/ mesh INCISIONAL HERNIA REPAIR 09/26/2018 [place]; lap w/ mesh INCISIONAL HERNIA REPAIR 03/11/2020 ; repair w/ mesh excision, mesh replacement ([facility]ent[facility]ight St Mesh w/ Echo), [facility] INCISIONAL HERNIA REPAIR 07/19/2015 [facility]; open repair w/ mesh SOFT TISSUE MASS EXCISION 08/02/2013 [place]; STM excision of LLQ TONSILLECTOMY PLAN: - Obtain chest X-ray. - Order laboratory tests including PT-INR, Type/screen, and lactic acid. - Administer a 500 mL bolus of Lactated Ringer's. - Keep the patient NPO (nothing by mouth) for now. - Consult general surgery for evaluation. - Use Reglan for nausea management and morphine for pain relief. - apply ice to hernia DIFFERENTIAL DIAGNOSIS: The Differential Diagnosis includes, in no particular order and is not limited to: - Incarcerated hernia - Strangulated hernia - Bowel obstruction - Gastroenteritis - Constipation - Peptic ulcer disease - Gallstone ileus - Diverticulitis - Hernia-related bowel ischemia - Crohn's disease Diagnoses as of 08/07/24 1038 Ventral hernia without obstruction or gangrene Bilateral renal stones Patient provided: Medications HYDROmorphone (Dilaudid) injection 1 mg (1 mg IntraVENous Given 08/07/24 0238) prochlorperazine (Compazine) injection 10 mg (10 mg IntraVENous Given 08/07/24 0239) sodium chloride 0.9 % bolus 1,000 mL (0 mL IntraVENous Stopped 08/07/24 0716) HYDROmorphone (Dilaudid) injection 0.5 mg (0.5 mg IntraVENous Given 08/07/24 0501) piperacillin-tazobactam (Zosyn) 4.5 g in sodium chloride 0.9 % 100 mL IVPB Mini-Bag Plus (0 g IntraVENous Stopped 08/07/24 0738) lactated ringers bolus 500 mL (500 mL IntraVENous New Bag 08/07/24 0839) metoclopramide (Reglan) injection 10 mg (10 mg IntraVENous Given 08/07/24 0840) morphine injection 4 mg (4 mg IntraVENous Given 08/07/24 0840) Upon reevaluation the patient's symptoms are Stable. PT/INR within normal limits. Lactic acid within normal stat incarceration or strangulation. Chest x-ray did not note any acute cardiopulmonary process. Patient was evaluated by surgery who recommended the patient go to the OR for abdominal reconstruction. Patient transferred to the OR with the general surgery service in stable condition. Social determinants of health: None Specific History obtained from others: Dr. Pan Consults: IP CONSULT TO GENERAL SURGERY PROCEDURES: Unless otherwise noted below, none Procedures Patients symptoms are consistent with sepsis, severe sepsis, or septic shock (If yes use .sepsiscoremeasure): FINAL IMPRESSION 1. Ventral hernia without obstruction or gangrene 2. Bilateral renal stones DISPOSITION Send To Or 08/07/2024 10:38:11 AM PATIENT REFERRED TO: No follow-up provider specified. DISCHARGE MEDICATIONS: New Prescriptions No medications on file (Comment: Please note this report has been produced using speech recognition software and may contain errors related to that system including errors in grammar, punctuation, and spelling, as well as words and phrases that may be inappropriate. If there are any questions or concerns please feel free to contact the dictating physician for clarification.) Darrin Horowitz DO (electronically signed) Emergency Medicine Physician Darrin Horowitz DO Resident 08/07/24 1038 Cosigned by Monique Pritchard DO at 08/07/2024 2:29 PM EDT documented in this encounter [facility] 08-07-2024 Emergency department Note Report given to Chad hardware trainer with [facility] ambulance. Pt transferred via cart in stable condition. IV site to LAC without redness or edema. Moira Galeano RN 08/07/24 0744 [facility] 08-07-2024 Note Formatting of this n ote is different from the original. Emergency Department Encounter [facility] EMERGENCY DEPT Patient: Mel Wall : 1985 Date of Evaluation: 08/07/2024 ED Supervising Physician: Monique Pritchard DO I personally evaluated Mel Wall and made/approved the management plan and take responsibility for the patient management. This will serve as my Supervisory note and shared attestation. I did perform a substantive portion of the visit including all aspects of the Medical Decision Making. I wore appropriate PPE for the entirety of this encounter. In brief, Mel Wall is a 39 y.o. that presents to the emergency department after transferred from [facility] secondary to concerns for a large hernia as well as CT scan being read as acute process in the setting of a prior appendectomy. She was given Zosyn as well as pain medication at [facility]. Transferred here for surgery evaluation. Focused exam: Alert, heart rate is regular, lungs are clear, abdomen is soft, large ventral hernia without overlying skin changes, no rebounding, guarding or rigidity Brief ED course/MDM: General Surgery evaluated the patient. They will take her to the OR for surgical repair. Diagnostics interpreted by me: Please see ED course Diagnoses as of 08/07/24 104 Ventral hernia without obstruction or gangrene Bilateral renal stones I personally discussed the patient's management with other clinicians: none CRITICAL CARE TIME None All diagnostic, treatment, and disposition decisions were made by myself in conjunction with the Resident. I also supervised solares portions of any procedures performed by the Resident. For all further details of the patient's emergency department visit, please see their documentation. (Comment: Please note this report has been produced using speech recognition software and may contain errors related to that system including errors in grammar, punctuation, and spelling, as well as words and phrases that may be inappropriate. If there are any questions or concerns please feel free to contact the dictating provider for clarification.) Monique Pritchard DO [employer] Monique Pritchard DO 08/07/24 104 [employer] [place] Phone: 08-07-2024 Note Formatting of this n ote is different from the original. Emergency Department Encounter [facility] EMERGENCY DEPT Patient: Mel Wall : 1985 Date of Evaluation: 08/07/2024 ED Supervising Physician: Monique Pritchard DO I personally evaluated Mel Wall and made/approved the management plan and take responsibility for the patient management. This will serve as my Supervisory note and shared attestation. I did perform a substantive portion of the visit including all aspects of the Medical Decision Making. I wore appropriate PPE for the entirety of this encounter. In brief, Mel Wall is a 39 y.o. that presents to the emergency department after transferred from [facility] secondary to concerns for a large hernia as well as CT scan being read as acute process in the setting of a prior appendectomy. She was given Zosyn as well as pain medication at [facility]. Transferred here for surgery evaluation. Focused exam: Alert, heart rate is regular, lungs are clear, abdomen is soft, large ventral hernia without overlying skin changes, no rebounding, guarding or rigidity Brief ED course/MDM: General Surgery evaluated the patient. They will take her to the OR for surgical repair. Diagnostics interpreted by me: Please see ED course Diagnoses as of 08/07/24 1049 Ventral hernia without obstruction or gangrene Bilateral renal stones I personally discussed the patient's management with other clinicians: none CRITICAL CARE TIME None All diagnostic, treatment, and disposition decisions were made by myself in conjunction with the Resident. I also supervised solares portions of any procedures performed by the Resident. For all further details of the patient's emergency department visit, please see their documentation. (Comment: Please note this report has been produced using speech recognition software and may contain errors related to that system including errors in grammar, punctuation, and spelling, as well as words and phrases that may be inappropriate. If there are any questions or concerns please feel free to contact the dictating provider for clarification.) Monique Pritchard DO [employer] Monique Pritchard DO 08/07/24 104 [place] Phone: 08-07-2024 Physician Emergency department Note Emergency Department Encounter [facility] EMERGENCY DEPT Patient: Mel Wall : 1985 Date of Evaluation: 08/07/2024 ED Provider: Heath Pan MD CHIEF COMPLAINT: Abdominal pain Chief Complaint Patient presents with Abdominal Pain Present for abdominal pain and not being able to keep anything down since Tuesday night. Hx of hiatal hernia. Has surgery for it scheduled in August. HPI: Mel Wall is a 39 y.o. female with PMH reports history of known abdominal hernia, presents with concern for abdominal pain. Patient reports chronic hernia involving the right side of her abdomen, scheduled for surgery in August, she reports for the last 3 days she has had pain associated with her hernia with nausea vomiting, no longer having bowel movement or passing gas, she denies fever chills, or other associated symptoms or concerns, reports she has been unable to tolerate oral antiemetic or analgesic at home. REVIEW OF SYSTEMS: Pertinent positives and negatives as per HPI. HISTORIES: PAST MEDICAL HISTORY: as per HPI SOCIAL HISTORY: Per EMR history of tobacco use PHYSICAL EXAM: Vital signs: reviewed General: Appears uncomfortable, nontoxic Cardiovascular: regular rhythm, normal rate Respiratory: non-labored breathing, no tachypnea Gastrointestinal: soft, non-distended, large right sided soft abdominal hernia with tenderness associated, nonreducible, no overlying skin change, no rigidity or guarding Neurologic: alert, no obvious neurologic deficits MEDICAL DECISION MAKING: Medications HYDROmorphone (Dilaudid) injection 1 mg (1 mg IntraVENous Given 08/07/24 0238) prochlorperazine (Compazine) injection 10 mg (10 mg IntraVENous Given 08/07/24 0239) sodium chloride 0.9 % bolus 1,000 mL (1,000 mL IntraVENous New Bag 08/07/24 023) HYDROmorphone (Dilaudid) injection 0.5 mg (0.5 mg IntraVENous Given 08/07/24 0501) Mel Wall is a 39 y.o. female who presents as above, pain associated with abdominal hernia, nausea vomiting, arrives afebrile with reassuring vitals, abdomen is nonperitoneal, presentation concerning for bowel obstruction, incarcerated hernia, discussed management, patient agrees to obtain workup to evaluate including CT abdomen pelvis, labs evaluation, treat with Dilaudid, Zofran. Labs obtained, interpreted by me, notable for no renal dysfunction, hCG negative, WBC 11.8 CT abdomen pelvis per radiologist interpretation large ventral hernia containing small bowel and right colon moderate stool is present in the colon with prior small bowel surgery changes there is tubular fluid-filled structure in the right hand side with surrounding streak-like densities most suggestive of acute appendicitis Patient informed of findings, she reports symptoms remain poorly controlled, she reports she has prior appendectomy, treated with additional Dilaudid, will treat with Zosyn for intra-abdominal infectious coverage. Patient reports persistent symptoms, I discussed with on-call surgeon Dr. Kimble including patient's history, exam, workup results, agrees with ER to ER transfer to [facility] emergency department for general surgery consult to evaluate and determine further management, patient informed of recommendations, and agree with plan, will be transferred by ambulance, I discussed with ED resident Dr. Newell on behalf of accepting attending Dr. Munoz, in agreement with plan, stable for transfer. DIAGNOSIS: Abdominal pain DISPOSITION: Transfer to [facility] emergency department I, Dr. Pan, am the industrial equipment wirer of record. Comment: Please note this report has been produced using speech recognition software and may contain errors related to that system including errors in grammar, punctuation, and spelling, as well as words and phrases that may be inappropriate. If there are any questions or concerns please feel free to contact the dictating provider for clarification. Heath Pan MD [facility] Heath Pan MD 08/07/24 0553 Heath Pan MD 08/07/24 0701 [place] Phone: 08-07-2024 Physician Emergency department Note EMERGENCY DEPARTMENT ENCOUNTER Pt Name: Mel Wall Birthdate 1985 Date of evaluation: 08/07/2024 ED Physician: Darrin Horowitz DO CHIEF COMPLAINT(S): Abdominal pain since Tuesday. HISTORY OF PRESENT ILLNESS: The patient is a 39-year-old female with a past surgical history of cholecystectomy and appendectomy in 2005, presenting with abdominal pain that began on Tuesday. The pain was described as starting spontaneously, without any precipitating activities or recent procedures. Accompanying symptoms include the absence of bowel movement since Tuesday and the inability to pass gas since the same day. The patient denies fever, chills, chest pain, or shortness of breath. She reports that general surgeon Dr. Mcguire is scheduled to perform her hernia surgery on September 03. The patient denies dysuria, hematuria, or other associated symptoms. ADDITIONAL HISTORY OBTAINED FROM SOURCE OTHER THAN PATIENT: Per the patient, there is a history of scheduled hernia surgery on September 03 ALLERGIES: The patient reports allergies to Zofran and Toradol, which caused hives and difficulty breathing during . REVIEW OF SYSTEMS: - Gastrointestinal: Positive for abdominal pain, negative for bowel movement or gas passage since Tuesday. - General: Denies fever, chills. - Cardiovascular/Respiratory: Denies chest pain or shortness of breath. - Genitourinary: Denies dysuria, hematuria. PAST MEDICAL HISTORY Past Medical History: Diagnosis Date Anxiety Bile reflux gastritis Bipolar affective (HCC) Depression Morbid obesity, unspecified obesity type (HCC) SURGICAL HISTORY Past Surgical History: Procedure Laterality Date APPENDECTOMY BILIOPANCREATIC DIVERSION 10/23/2008 Sherie @ [facility]; janel-en-y duodenojejunostomy for bile reflux CHOLECYSTECTOMY 02/2007 lap COLONOSCOPY N/A 11/29/2023 [facility]; repeat in 11/2033 EXPLORATORY LAPAROTOMY 06/10/2019 Veronica @ [facility]; ex lap, [facility] INCISION AND DRAINAGE OF WOUND 08/09/2013 [facility]; I&D of surgical incision of LLQ INCISIONAL HERNIA REPAIR 10/20/2017 [place]; open primary repair INCISIONAL HERNIA REPAIR 07/12/2018 [facility]; open w/ mesh INCISIONAL HERNIA REPAIR 09/26/2018 [facility]; lap w/ mesh INCISIONAL HERNIA REPAIR 03/11/2020 [facility]; repair w/ mesh excision, mesh replacement ([facility] Mesh w/ Echo), WAI INCISIONAL HERNIA REPAIR 07/19/2015 [place]; open repair w/ mesh SOFT TISSUE MASS EXCISION 08/02/2013 [facility]; STM excision of LLQ TONSILLECTOMY CURRENT MEDICATIONS Previous Medications ACETAMINOPHEN (TYLENOL) 325 MG TABLET Take 650 mg by mouth every 6 hours as needed for mild pain (1-3), moderate pain (4-6), headaches or fever. ALBUTEROL 108 (90 BASE) MCG/ACT INHALER Inhale 2 puffs every 4 hours as needed for wheezing or shortness of breath. FLUOXETINE (PROZAC) 20 MG CAPSULE Take 20 mg by mouth in the morning. IBUPROFEN 800 MG TABLET Take 800 mg by mouth every 6 hours as needed. METHOCARBAMOL (ROBAXIN) 750 MG TABLET Take 1 tablet (750 mg) by mouth 3 times daily as needed for muscle spasms for up to 10 days. PHENTERMINE (ADIPEX-P) 37.5 MG TABLET Take 1 tablet (37.5 mg) by mouth every morning (before breakfast). PHENTERMINE (ADIPEX-P) 37.5 MG TABLET Take 1 tablet (37.5 mg) by mouth every morning (before breakfast). ALLERGIES Ketorolac, Ondansetron, and Seasonal FAMILY HISTORY Family History Problem Relation Name Age of Onset Hypertension Father Diabetes Father SOCIAL HISTORY Social History Socioeconomic History Marital status: Single Tobacco Use Smoking status: Former Types: Cigarettes Smokeless tobacco: Never Substance and Sexual Activity Alcohol use: Not Currently Drug use: Yes Frequency: 2.0 times per week Types: Marijuana Comment: edibles Sexual activity: Not Currently Social Drivers of Health Financial Resource Strain: High Risk (04/24/2024) Overall Financial Resource Strain (CARDIA) Difficulty of Paying Living Expenses: Very hard Food Insecurity: Patient Declined (04/26/2024) Hunger Vital Sign Worried About Running Out of Food in the Last Year: Patient declined Ran Out of Food in the Last Year: Patient declined Recent Concern: Food Insecurity - Food Insecurity Present (04/24/2024) Hunger Vital Sign Worried About Running Out of Food in the Last Year: Often true Ran Out of Food in the Last Year: Often true Transportation Needs: Patient Declined (04/26/2024) PRAPARE - Transportation Lack of Transportation (Medical): Patient declined Lack of Transportation (Non-Medical): Patient declined Recent Concern: Transportation Needs - Unmet Transportation Needs (04/24/2024) PRAPARE - Transportation Lack of Transportation (Medical): Yes Lack of Transportation (Non-Medical): Yes Physical Activity: Sufficiently Active (04/24/2024) Exercise Vital Sign Days of Exercise per Week: 7 days Minutes of Exercise per Session: 60 min Stress: Stress Concern Present (04/24/2024) [employer] [place] [employer] - Occupational Stress Questionnaire Feeling of Stress : Very much Social Connections: Moderately Integrated (04/24/2024) Social Connection and Isolation Panel [NHANES] Frequency of Communication with Friends and Family: Twice a week Frequency of Social Gatherings with Friends and Family: Once a week Attends [employer] Services: More than 4 times per year Active Member of Clubs or Organizations: No Attends Club or Organization Meetings: More than 4 times per year Marital Status: Intimate Partner Violence: Patient Declined (04/26/2024) Humiliation, Afraid, Rape, and Kick questionnaire Fear of Current or Ex-Partner: Patient declined Emotionally Abused: Patient declined Physically Abused: Patient declined Sexually Abused: Patient declined Housing Stability: Unknown (04/26/2024) Housing Stability Vital Sign Unable to Pay for Housing in the Last Year: Patient declined Number of Times Moved in the Last Year: 1 Homeless in the Last Year: No Recent Concern: Housing Stability - High Risk (04/24/2024) Housing Stability Vital Sign Unable to Pay for Housing in the Last Year: Yes Number of Times Moved in the Last Year: 1 Homeless in the Last Year: No SCREENINGS PHYSICAL EXAM ED Triage Vitals Temp Heart Rate Resp BP 08/07/2422108/07/2422108/07/2422108/07/24221 36.9 C (98.5 F) 80 16 128/82 SpO2 Temp Source Heart Rate Source Patient Position 08/07/2422108/07/24 0813 08/07/24 0813 08/07/24221 99 % Oral Monitor Sitting BP Location FiO2 (%) 08/07/24221 -- Left arm Physical Exam Vitals reviewed. Constitutional: General: She is not in acute distress. Appearance: Normal appearance. She is not ill-appearing. HENT: Head: Normocephalic and atraumatic. Right Ear: External ear normal. Left Ear: External ear normal. Nose: Nose normal. Mouth/Throat: Mouth: Mucous membranes are moist. Pharynx: Oropharynx is clear. Eyes: Extraocular Movements: Extraocular movements intact. Pupils: Pupils are equal, round, and reactive to light. Cardiovascular: Rate and Rhythm: Normal rate and regular rhythm. Pulses: Normal pulses. Heart sounds: Normal heart sounds. No murmur heard. Pulmonary: Effort: Pulmonary effort is normal. Breath sounds: Normal breath sounds. No wheezing, rhonchi or rales. Abdominal: General: There is no distension. Palpations: Abdomen is soft. Tenderness: There is abdominal tenderness in the epigastric area. There is no right CVA tenderness, left CVA tenderness, guarding or rebound. Hernia: A hernia (large midline hernia) is present. Musculoskeletal: General: No swelling. Cervical back: Normal range of motion. Skin: General: Skin is warm and dry. Capillary Refill: Capillary refill takes less than 2 seconds. Findings: No rash. Neurological: Mental Status: She is alert and oriented to person, place, and time. Sensory: No sensory deficit. Motor: No weakness. DIAGNOSTIC RESULTS Procedures/EKG: EKG was reviewed by myself. Physician EKG interpretation can be found in [facility] RADIOLOGY (Per Emergency Physician): Interpretation per the Radiologist below, if available at the time of this note: XR chest 1 view Final Result No radiographic evidence of acute cardiopulmonary process. Report Dictated on Electronically Signed By: Steph Zaragoza MD Electronically Signed Date/Time: 08/07/2024 9:[address] abdomen pelvis w contrast Final Result ED BEDSIDE ULTRASOUND: Performed by ED Physician - none LABS: Labs Reviewed COMPREHENSIVE METABOLIC PANEL - Abnormal Result Value SODIUM 136 POTASSIUM 4.2 CHLORIDE 108 (*) CARBON DIOXIDE 20 (*) ANION GAP 8 UREA NITROGEN 10 CREATININE 0.52 GLUCOSE 117 (*) CALCIUM 8.8 AST (SGOT) 18 ALT 11 ALKALINE PHOSPHATASE 39 ALBUMIN 3.9 BILIRUBIN, TOTAL 0.3 TOTAL PROTEIN 6.4 eGFR >90.0 CBC (HEMOGRAM) - Abnormal Auto WBC 11.8 (*) RBC 4.13 Hemoglobin 12.9 Hematocrit 38.2 MCV 92.5 MCH 31.2 MCHC 33.8 RDW 12.5 Platelets 301 MPV 8.8 (*) LIPASE - Normal LIPASE 117 PROTHROMBIN TIME - Normal PROTHROMBIN TIME 10.7 INR 0.9 LACTIC ACID WITH REFLEX - Normal LACTIC ACID 1.2 HCG QUANTITATIVE BLOOD HCG QUANTITATIVE <2 Narrative: Values in should double every 2 to 3 days for the first 6 weeks. Elevated concentrations of human chorionic gonadotropin (hCG) measured in the first trimester of are observed in normal , but may serve as an indication of chorionic carcinoma, hydatiform mole, or multiple . Decreasing hCG concentrations indicate threatened or missed , recent termination of , ectopic , gestosis or intrauterine . Yanelis- and postmenopausal females may have detectable hCG concentrations (< or = to 14 mIU/mL) due to pituitary production of hCG. Serum follicle-stimulating hormone measurement may aid in ruling-out in this population. Cutoffs of greater than 20 to 45 mIU/mL have been suggested and are method dependent. False-elevations (called phantom human chorionic gonadotropin: hCG) may occur with patients who have human antianimal or heterophilic antibodies. Some specimens may not dilute linearly due to abnormal forms of hCG. Elevated hCG concentrations not associated with are found in patients with other diseases such as tumors of the germ cells, ovaries, bladder, pancreas, stomach, lungs, and liver. This test is not intended to detect or monitor tumors or gestational trophoblastic disease. COMPLETE URINALYSIS BLOOD TYPE AND SCREEN GEL All other labs were within normal range or not returned as of this dictation. EMERGENCY DEPARTMENT COURSE and DIFFERENTIAL DIAGNOSIS/MDM: Vitals: Vitals: 08/07/24 0222 08/07/24 0739 08/07/24 0740 08/07/24 0813 BP: 128/82 114/54 112/61 BP Location: Left arm Patient Position: Sitting Pulse: 80 80 70 Resp: 16 18 18 Temp: 36.9 C (98.5 F) 36.9 C (98.5 F) 36.5 C (97.7 F) TempSrc: Oral SpO2: 99% 98% 98% Weight: 99.8 kg (220 lb) Height: 1.651 m (5' 5) Labs and Images interpreted in ED course. All labs and imaging have been personally reviewed and interpreted by me. Shared Decision Making I will have a long discussion with the patient and/or visitors regarding risks/benefits of further testing or admission. They will be made aware of the risks/benefits in this decision and will voice understanding as able. Summary of External Notes reviewed: Summary of pertinent elements includes: Care everywhere reviewed PDMP reviewed Factors Affecting Care: Past Medical History: Diagnosis Date Anxiety Bile reflux gastritis Bipolar affective (HCC) Depression Morbid obesity, unspecified obesity type (HCC) Past Surgical History: Procedure Laterality Date APPENDECTOMY BILIOPANCREATIC DIVERSION 10/23/2008 Sherie @ [place]; janel-en-y duodenojejunostomy for bile reflux CHOLECYSTECTOMY 02/2007 lap COLONOSCOPY N/A 11/29/2023 [facility]; repeat in 11/2033 EXPLORATORY LAPAROTOMY 06/10/2019 Veronica @ [facility]; ex lap, [facility] INCISION AND DRAINAGE OF WOUND 08/09/2013 [facility]; I&D of surgical incision of LLQ INCISIONAL HERNIA REPAIR 10/20/2017 [facility]; open primary repair INCISIONAL HERNIA REPAIR 07/12/2018 [facility]; open w/ mesh INCISIONAL HERNIA REPAIR 09/26/2018 [facility]; lap w/ mesh INCISIONAL HERNIA REPAIR 03/11/2020 ; repair w/ mesh excision, mesh replacement ([facility] Mesh w/ Echo), [facility]AI INCISIONAL HERNIA REPAIR 07/19/2015 [facility]; open repair w/ mesh SOFT TISSUE MASS EXCISION 08/02/2013 [facility]; STM excision of LLQ TONSILLECTOMY PLAN: - Obtain chest X-ray. - Order laboratory tests including PT-INR, Type/screen, and lactic acid. - Administer a 500 mL bolus of Lactated Ringer's. - Keep the patient NPO (nothing by mouth) for now. - Consult general surgery for evaluation. - Use Reglan for nausea management and morphine for pain relief. - apply ice to hernia DIFFERENTIAL DIAGNOSIS: The Differential Diagnosis includes, in no particular order and is not limited to: - Incarcerated hernia - Strangulated hernia - Bowel obstruction - Gastroenteritis - Constipation - Peptic ulcer disease - Gallstone ileus - Diverticulitis - Hernia-related bowel ischemia - Crohn's disease Diagnoses as of 08/07/24 1038 Ventral hernia without obstruction or gangrene Bilateral renal stones Patient provided: Medications HYDROmorphone (Dilaudid) injection 1 mg (1 mg IntraVENous Given 08/07/24 0238) prochlorperazine (Compazine) injection 10 mg (10 mg IntraVENous Given 08/07/24 0239) sodium chloride 0.9 % bolus 1,000 mL (0 mL IntraVENous Stopped 08/07/24 0716) HYDROmorphone (Dilaudid) injection 0.5 mg (0.5 mg IntraVENous Given 08/07/24 0501) piperacillin-tazobactam (Zosyn) 4.5 g in sodium chloride 0.9 % 100 mL IVPB Mini-Bag Plus (0 g IntraVENous Stopped 08/07/24 0738) lactated ringers bolus 500 mL (500 mL IntraVENous New Bag 08/07/24 0839) metoclopramide (Reglan) injection 10 mg (10 mg IntraVENous Given 08/07/24 0840) morphine injection 4 mg (4 mg IntraVENous Given 08/07/24 0840) Upon reevaluation the patient's symptoms are Stable. PT/INR within normal limits. Lactic acid within normal stat incarceration or strangulation. Chest x-ray did not note any acute cardiopulmonary process. Patient was evaluated by surgery who recommended the patient go to the OR for abdominal reconstruction. Patient transferred to the OR with the general surgery service in stable condition. Social determinants of health: None Specific History obtained from others: Dr. Pan Consults: IP CONSULT TO GENERAL SURGERY PROCEDURES: Unless otherwise noted below, none Procedures Patients symptoms are consistent with sepsis, severe sepsis, or septic shock (If yes use .sepsiscoremeasure): FINAL IMPRESSION 1. Ventral hernia without obstruction or gangrene 2. Bilateral renal stones DISPOSITION Send To Or 08/07/2024 10:38:11 AM PATIENT REFERRED TO: No follow-up provider specified. DISCHARGE MEDICATIONS: New Prescriptions No medications on file (Comment: Please note this report has been produced using speech recognition software and may contain errors related to that system including errors in grammar, punctuation, and spelling, as well as words and phrases that may be inappropriate. If there are any questions or concerns please feel free to contact the dictating physician for clarification.) Darrin Horowitz DO (electronically signed) Emergency Medicine Physician Darrin Horowitz DO Resident 08/07/24 1038 Cosigned by Monique Pritchard DO at 08/07/2024 2:29 PM EDT [facility] 07-25-2024 Telephone encounter Note PDMP checked and appropriate. RX approved. [facility] 07-25-2024 Miscellaneous Notes PDMP checked and appropriate. RX approved. documented in this encounter [facility] 07-16-2024 Telephone encounter Note PDMP checked and appropriate. Rx approved. [facility] 07-16-2024 Miscellaneous Notes PDMP checked and appropriate. Rx approved. documented in this encounter [facility] 07-08-2024 Emergency department Note Report received from MARIE Hercules RN 07/08/24 1005 [facility] 09-29-2024 Emergency department Note Report received from MARIE Hercules RN 07/08/24 1005 EMERGENCY DEPARTMENT ENCOUNTER Pt Name: Mel Wall Birthdate 1985 Date of evaluation: 07/08/2024 ED Provider: Vishal Garcia MD CHIEF COMPLAINT Chief Complaint Patient presents with Abdominal Pain Pain related to abd hernia Syncope HISTORY OF PRESENT ILLNESS (Location/Symptom, Timing/Onset, Context/Setting, Quality, Duration, Modifying Factors, Severity) Note limiting factors. I wore appropriate PPE for the entirety of this encounter. HPI Mel Wall is a 39 y.o. who presents to the emergency department with chief complaint of abdominal pain, abnormally thin stools, with nausea and vomiting that woke her from sleep at around 4 AM today. Patient states that later in the day she became more nauseous and felt like she was going to throw up. She went to the bathroom, threw up, he became very sweaty and then had a brief syncopal episode. Denies any chest pain, palpitations, shortness of breath. She states that she woke up on the floor with continued abdominal pain and decided to come to the emergency department. She reports a complex abdominal history with multiple surgeries and is currently scheduled for hernia repair and panniculectomy. She has a known large incarcerated ventral wall hernia that has been causing her pain. She has had recent bowel obstructions which were treated conservatively as an inpatient. She is concerned that she is having another bowel obstruction given her symptoms and previous experience. Denies any fevers or chills. Nursing Notes were reviewed. Limitations to history: None Outside historians: None REVIEW OF SYSTEMS Review of Systems All other systems reviewed and are negative. Pertinent positives and negatives as per HPI. PAST MEDICAL HISTORY Past Medical History: Diagnosis Date Anxiety Bile reflux gastritis Bipolar affective (HCC) Depression Morbid obesity, unspecified obesity type (HCC) SURGICAL HISTORY Past Surgical History: Procedure Laterality Date APPENDECTOMY BILIOPANCREATIC DIVERSION 10/23/2008 Sherie @ [facility]; janel-en-y duodenojejunostomy for bile reflux CHOLECYSTECTOMY 02/2007 lap COLONOSCOPY N/A 11/29/2023 [place]; repeat in 11/2033 EXPLORATORY LAPAROTOMY 06/10/2019 Veronica @ [facility]; ex lap, [facility] INCISION AND DRAINAGE OF WOUND 08/09/2013 [place]; I&D of surgical incision of LLQ INCISIONAL HERNIA REPAIR 10/20/2017 [place]; open primary repair INCISIONAL HERNIA REPAIR 07/12/2018 [place]; open w/ mesh INCISIONAL HERNIA REPAIR 09/26/2018 [place]; lap w/ mesh INCISIONAL HERNIA REPAIR 03/11/2020 [facility]; repair w/ mesh excision, mesh replacement ([facility]ent[facility] Mesh w/ Echo), WAI INCISIONAL HERNIA REPAIR 07/19/2015 [place]; open repair w/ mesh SOFT TISSUE MASS EXCISION 08/02/2013 [facility]; STM excision of LLQ TONSILLECTOMY CURRENT MEDICATIONS Current Discharge Medication List CONTINUE these medications which have NOT CHANGED Details acetaminophen (Tylenol) 325 MG tablet Take 650 mg by mouth every 6 hours as needed for mild pain (1-3), moderate pain (4-6), headaches or fever. albuterol 108 (90 Base) MCG/ACT inhaler Inhale 2 puffs every 4 hours as needed for wheezing or shortness of breath. FLUoxetine (PROzac) 20 MG capsule Take 20 mg by mouth in the morning. ibuprofen 800 MG tablet Take 800 mg by mouth every 6 hours as needed. methocarbamol (Robaxin) 750 MG tablet Take 1 tablet (750 mg) by mouth 3 times daily as needed for muscle spasms for up to 10 days. Qty: 30 tablet, Refills: 0 phentermine (Adipex-P) 37.5 MG tablet Take 1 tablet (37.5 mg) by mouth every morning (before breakfast). Qty: 30 tablet, Refills: 0 Comments: Bmi 43 Associated Diagnoses: BMI 40.0-44.9, adult (HCC) phentermine (Adipex-P) 37.5 MG tablet Take 1 tablet (37.5 mg) by mouth every morning (before breakfast). Qty: 30 tablet, Refills: 0 Associated Diagnoses: BMI 40.0-44.9, adult (HCC) ALLERGIES Ketorolac, Ondansetron, and Seasonal FAMILY HISTORY Family History Problem Relation Name Age of Onset Hypertension Father Diabetes Father SOCIAL HISTORY Social History Socioeconomic History Marital status: Single Tobacco Use Smoking status: Former Types: Cigarettes Smokeless tobacco: Never Substance and Sexual Activity Alcohol use: Not Currently Drug use: Yes Frequency: 2.0 times per week Types: Marijuana Comment: edibles Sexual activity: Not Currently Social Determinants of Health Financial Resource Strain: High Risk (04/24/2024) Overall Financial Resource Strain (CARDIA) Difficulty of Paying Living Expenses: Very hard Food Insecurity: Patient Declined (04/26/2024) Hunger Vital Sign Worried About Running Out of Food in the Last Year: Patient declined Ran Out of Food in the Last Year: Patient declined Recent Concern: Food Insecurity - Food Insecurity Present (04/24/2024) Hunger Vital Sign Worried About Running Out of Food in the Last Year: Often true Ran Out of Food in the Last Year: Often true Transportation Needs: Patient Declined (04/26/2024) PRAPARE - Transportation Lack of Transportation (Medical): Patient declined Lack of Transportation (Non-Medical): Patient declined Recent Concern: Transportation Needs - Unmet Transportation Needs (04/24/2024) PRAPARE - Transportation Lack of Transportation (Medical): Yes Lack of Transportation (Non-Medical): Yes Physical Activity: Sufficiently Active (04/24/2024) Exercise Vital Sign Days of Exercise per Week: 7 days Minutes of Exercise per Session: 60 min Stress: Stress Concern Present (04/24/2024) [employer] - Occupational Stress Questionnaire Feeling of Stress : Very much Social Connections: Moderately Integrated (04/24/2024) Social Connection and Isolation Panel [NHANES] Frequency of Communication with Friends and Family: Twice a week Frequency of Social Gatherings with Friends and Family: Once a week Attends Adventism Services: More than 4 times per year Active Member of Clubs or Organizations: No Attends Club or Organization Meetings: More than 4 times per year Marital Status: Intimate Partner Violence: Patient Declined (04/26/2024) Humiliation, Afraid, Rape, and Kick questionnaire Fear of Current or Ex-Partner: Patient declined Emotionally Abused: Patient declined Physically Abused: Patient declined Sexually Abused: Patient declined Housing Stability: Unknown (04/26/2024) Housing Stability Vital Sign Unable to Pay for Housing in the Last Year: Patient declined Number of Times Moved in the Last Year: 1 Homeless in the Last Year: No Recent Concern: Housing Stability - High Risk (04/24/2024) Housing Stability Vital Sign Unable to Pay for Housing in the Last Year: Yes Number of Times Moved in the Last Year: 1 Homeless in the Last Year: No SCREENINGS PHYSICAL EXAM ED Triage Vitals [07/08/24 0829] Temp Heart Rate Resp BP 36.6 C (97.8 F) 81 18 125/88 SpO2 Temp Source Heart Rate Source Patient Position 98 % Temporal Monitor -- BP Location FiO2 (%) -- -- Physical Exam Vitals and nursing note reviewed. Constitutional: General: She is not in acute distress. Appearance: She is well-developed. She is obese. She is not ill-appearing. HENT: Head: Normocephalic. Eyes: General: No scleral icterus. Cardiovascular: Rate and Rhythm: Normal rate. Pulmonary: Effort: Pulmonary effort is normal. No respiratory distress. Abdominal: General: Abdomen is protuberant. There is no distension. Palpations: Abdomen is soft. Tenderness: There is abdominal tenderness in the periumbilical area. There is no right CVA tenderness, left CVA tenderness, guarding or rebound. Hernia: A hernia is present. Hernia is present in the ventral area. Comments: Large, incarcerated ventral hernia. Skin: General: Skin is warm and dry. Neurological: Mental Status: She is alert and oriented to person, place, and time. Psychiatric: Mood and Affect: Mood normal. Behavior: Behavior normal. Large, chronically incarcerated ventral hernia. DIAGNOSTIC RESULTS Procedures/EKG: EKG was reviewed by myself. Physician EKG interpretation can be found in [facility] RADIOLOGY (Per Emergency Physician): Interpretation per the Radiologist below, if available at the time of this note: CT abdomen pelvis w contrast Final Result 1. No definite acute abdominopelvic process identified. 2. Large ventral hernia containing fat and nonincarcerated nonobstructed bowel and colon. 3. Simple right renal cyst and 2 indeterminate lesions of the left kidney unchanged since prior exam. 4. Punctate nonobstructive right inferior pole nephrolithiasis. 5. Right adnexal hypodensities measuring up to 3.1 cm, potentially reflecting ovarian cysts. Ultrasound may be obtained for further evaluation. 6. Other chronic and postsurgical findings as discussed. Report Dictated on Electronically Signed By: Petr Blackburn MD Electronically Signed Date/Time: 07/08/2024 9:53 AM EDT ED BEDSIDE ULTRASOUND: Performed by ED Physician - none LABS: Labs Reviewed CBC WITH AUTO DIFFERENTIAL - Abnormal Result Value Auto WBC 8.8 RBC 4.41 Hemoglobin 13.7 Hematocrit 40.7 MCV 92.3 MCH 31.1 MCHC 33.7 RDW 12.6 Platelets 326 MPV 8.6 (*) nRBC 0.0 Neutrophils Relative 67.1 Lymphocytes Relative 23.2 Monocytes Relative 6.6 Eosinophils Relative 2.6 Basophils Relative 0.3 Immature Grans % 0.2 Neutrophils Absolute 5.9 Lymphocytes Absolute 2.1 Monocytes Absolute 0.6 Eosinophils Absolute 0.2 Basophils Absolute 0.0 Immature Grans Absolute 0.0 COMPREHENSIVE METABOLIC PANEL - Abnormal SODIUM 138 POTASSIUM 3.9 CHLORIDE 106 CARBON DIOXIDE 22 ANION GAP 9 UREA NITROGEN 9 CREATININE 0.53 GLUCOSE 111 (*) CALCIUM 9.0 AST (SGOT) 18 ALT 12 ALKALINE PHOSPHATASE 43 ALBUMIN 4.5 BILIRUBIN, TOTAL 0.3 TOTAL PROTEIN 7.1 eGFR >90.0 COMPLETE URINALYSIS - Abnormal Color, Urine Red (*) Clarity, Urine Clear pH, Urine 6.0 Leukocytes, Urine 25 (*) Nitrite, Urine Negative Protein, Urine Negative Glucose, Urine Normal Bilirubin, Urine Negative Ketones, Urine Negative Urobilinogen, Urine Normal Blood, Urine >1.0 (*) Volume, Urine 12 mL RBC, Urine >100 (*) WBC, Urine 3-5 Squamous Epithelial, Urine 6-10 (*) Bacteria, Urine Negative SPECIFIC GRAVITY OF URINE (NUMERIC) 1.005 LIPASE - Normal LIPASE 127 LACTIC ACID WITH REFLEX - Normal LACTIC ACID 1.5 COMPLETE URINALYSIS WITH REFLEX TO CULTURE Narrative: The following orders were created for panel order Urinalysis Complete with reflex to Culture. Procedure Abnormality Status --------- ------ Complete Urinalysis[[id number]] Abnormal Final result Please view results for these tests on the individual orders. All other labs were within normal range or not returned as of this dictation. EMERGENCY DEPARTMENT COURSE and DIFFERENTIAL DIAGNOSIS/MDM: Vitals: Vitals: 07/08/24 0829 07/08/24 0939 BP: 125/88 118/80 Pulse: 81 65 Resp: 18 18 Temp: 36.6 C (97.8 F) TempSrc: Temporal SpO2: 98% 98% Weight: 102 kg (224 lb) Patient presents emergency department for evaluation of acute on chronic abdominal pain with nausea and vomiting and syncopal episode this morning. From the HPI patient's syncopal episode sounds likely vasovagal secondary to her nausea and vomiting. Denied any chest pain, shortness of breath, palpitations. No lightheadedness or similar symptoms no repeat syncope since. She does have a long history of chronic abdominal pain secondary to complex surgical history as described in the HPI and physical exam. On physical exam she is tender to palpation in the large ventral hernia as well as diffusely throughout the abdomen but no acute abdominal findings. CT of the abdomen pelvis was obtained given her significant history and shows no evidence of obstruction or other acute abnormality, chronic and surgical changes as noted. No significant derangements found on CBC, CMP, lipase, urinalysis, or lactic acid level. Patient was treated with Dilaudid and Phenergan in the ED with significant improvement in symptoms. I discussed the findings with the patient she states she is comfortable being discharged for follow-up with her surgeon. She states that she has a prescription of oxycodone right now but is out of Phenergan. I will provide a prescription for Phenergan for further symptom management. Return precautions were discussed and questions answered at the bedside prior to discharge. Diagnoses as of 07/08/24 1033 Abdominal pain, generalized Ventral hernia without obstruction or gangrene Medications HYDROmorphone (Dilaudid) injection 1 mg (1 mg IntraVENous Given 07/08/24 0853) promethazine (Phenergan) injection 25 mg (25 mg IntraMUSCular Given 07/08/24 0852) HYDROmorphone (Dilaudid) injection 1 mg (1 mg IntraVENous Given 07/08/24 0941) REVAL: CRITICAL CARE TIME None CONSULTS: None PROCEDURES: Unless otherwise noted below, none Procedures Patients symptoms are consistent with sepsis, severe sepsis, or septic shock (If yes use .sepsiscoremeasure): No FINAL IMPRESSION 1. Abdominal pain, generalized 2. Ventral hernia without obstruction or gangrene DISPOSITION Discharge 07/08/2024 10:31:49 AM PATIENT REFERRED TO: Serafin Taylor [address] [facility] [address] Schedule an appointment as soon as possible for a visit [facility] [address] [place], [place] [address]y [facility] [id number] If symptoms worsen DISCHARGE MEDICATIONS: Current Discharge Medication List START taking these medications Details promethazine (Phenergan) 25 MG tablet Take 1 tablet (25 mg) by mouth every 8 hours as needed for nausea or vomiting for up to 14 days. Qty: 42 tablet, Refills: 0 (Comment: Please note this report has been produced using speech recognition software and may contain errors related to that system including errors in grammar, punctuation, and spelling, as well as words and phrases that may be inappropriate. If there are any questions or concerns please feel free to contact the dictating provider for clarification.) Vishal Garcia MD (electronically signed) Emergency Medicine Provider Vishal Garcia MD 07/08/24 1035 documented in this encounter [facility] 07-08-2024 Physician Emergency department Note EMERGENCY DEPARTMENT ENCOUNTER Pt Name: Mel Wall Birthdate 1985 Date of evaluation: 07/08/2024 ED Provider: Vishal Garcia MD CHIEF COMPLAINT Chief Complaint Patient presents with Abdominal Pain Pain related to abd hernia Syncope HISTORY OF PRESENT ILLNESS (Location/Symptom, Timing/Onset, Context/Setting, Quality, Duration, Modifying Factors, Severity) Note limiting factors. I wore appropriate PPE for the entirety of this encounter. HPI Mel Wall is a 39 y.o. who presents to the emergency department with chief complaint of abdominal pain, abnormally thin stools, with nausea and vomiting that woke her from sleep at around 4 AM today. Patient states that later in the day she became more nauseous and felt like she was going to throw up. She went to the bathroom, threw up, he became very sweaty and then had a brief syncopal episode. Denies any chest pain, palpitations, shortness of breath. She states that she woke up on the floor with continued abdominal pain and decided to come to the emergency department. She reports a complex abdominal history with multiple surgeries and is currently scheduled for hernia repair and panniculectomy. She has a known large incarcerated ventral wall hernia that has been causing her pain. She has had recent bowel obstructions which were treated conservatively as an inpatient. She is concerned that she is having another bowel obstruction given her symptoms and previous experience. Denies any fevers or chills. Nursing Notes were reviewed. Limitations to history: None Outside historians: None REVIEW OF SYSTEMS Review of Systems All other systems reviewed and are negative. Pertinent positives and negatives as per HPI. PAST MEDICAL HISTORY Past Medical History: Diagnosis Date Anxiety Bile reflux gastritis Bipolar affective (HCC) Depression Morbid obesity, unspecified obesity type (HCC) SURGICAL HISTORY Past Surgical History: Procedure Laterality Date APPENDECTOMY BILIOPANCREATIC DIVERSION 10/23/2008 Sherie @ [place]; janel-en-y duodenojejunostomy for bile reflux CHOLECYSTECTOMY 02/2007 lap COLONOSCOPY N/A 11/29/2023 [facility]; repeat in 11/2033 EXPLORATORY LAPAROTOMY 06/10/2019 Veronica @ [facility]; ex lap, [facility] INCISION AND DRAINAGE OF WOUND 08/09/2013 [facility]; I&D of surgical incision of LLQ INCISIONAL HERNIA REPAIR 10/20/2017 [facility]; open primary repair INCISIONAL HERNIA REPAIR 07/12/2018 [facility]; open w/ mesh INCISIONAL HERNIA REPAIR 09/26/2018 [place]; lap w/ mesh INCISIONAL HERNIA REPAIR 03/11/2020 ; repair w/ mesh excision, mesh replacement ([facility]entralight St Mesh w/ Echo), WAI INCISIONAL HERNIA REPAIR 07/19/2015 [place]; open repair w/ mesh SOFT TISSUE MASS EXCISION 08/02/2013 [facility]; STM excision of LLQ TONSILLECTOMY CURRENT MEDICATIONS Current Discharge Medication List CONTINUE these medications which have NOT CHANGED Details acetaminophen (Tylenol) 325 MG tablet Take 650 mg by mouth every 6 hours as needed for mild pain (1-3), moderate pain (4-6), headaches or fever. albuterol 108 (90 Base) MCG/ACT inhaler Inhale 2 puffs every 4 hours as needed for wheezing or shortness of breath. FLUoxetine (PROzac) 20 MG capsule Take 20 mg by mouth in the morning. ibuprofen 800 MG tablet Take 800 mg by mouth every 6 hours as needed. methocarbamol (Robaxin) 750 MG tablet Take 1 tablet (750 mg) by mouth 3 times daily as needed for muscle spasms for up to 10 days. Qty: 30 tablet, Refills: 0 phentermine (Adipex-P) 37.5 MG tablet Take 1 tablet (37.5 mg) by mouth every morning (before breakfast). Qty: 30 tablet, Refills: 0 Comments: Bmi 43 Associated Diagnoses: BMI 40.0-44.9, adult (HCC) phentermine (Adipex-P) 37.5 MG tablet Take 1 tablet (37.5 mg) by mouth every morning (before breakfast). Qty: 30 tablet, Refills: 0 Associated Diagnoses: BMI 40.0-44.9, adult (HCC) ALLERGIES Ketorolac, Ondansetron, and Seasonal FAMILY HISTORY Family History Problem Relation Name Age of Onset Hypertension Father Diabetes Father SOCIAL HISTORY Social History Socioeconomic History Marital status: Single Tobacco Use Smoking status: Former Types: Cigarettes Smokeless tobacco: Never Substance and Sexual Activity Alcohol use: Not Currently Drug use: Yes Frequency: 2.0 times per week Types: Marijuana Comment: edibles Sexual activity: Not Currently Social Determinants of Health Financial Resource Strain: High Risk (04/24/2024) Overall Financial Resource Strain (CARDIA) Difficulty of Paying Living Expenses: Very hard Food Insecurity: Patient Declined (04/26/2024) Hunger Vital Sign Worried About Running Out of Food in the Last Year: Patient declined Ran Out of Food in the Last Year: Patient declined Recent Concern: Food Insecurity - Food Insecurity Present (04/24/2024) Hunger Vital Sign Worried About Running Out of Food in the Last Year: Often true Ran Out of Food in the Last Year: Often true Transportation Needs: Patient Declined (04/26/2024) PRAPARE - Transportation Lack of Transportation (Medical): Patient declined Lack of Transportation (Non-Medical): Patient declined Recent Concern: Transportation Needs - Unmet Transportation Needs (04/24/2024) PRAPARE - Transportation Lack of Transportation (Medical): Yes Lack of Transportation (Non-Medical): Yes Physical Activity: Sufficiently Active (04/24/2024) Exercise Vital Sign Days of Exercise per Week: 7 days Minutes of Exercise per Session: 60 min Stress: Stress Concern Present (04/24/2024) [employer] [place] [employer] - Occupational Stress Questionnaire Feeling of Stress : Very much Social Connections: Moderately Integrated (04/24/2024) Social Connection and Isolation Panel [NHANES] Frequency of Communication with Friends and Family: Twice a week Frequency of Social Gatherings with Friends and Family: Once a week Attends [employer]ism Services: More than 4 times per year Active Member of Clubs or Organizations: No Attends Club or Organization Meetings: More than 4 times per year Marital Status: Intimate Partner Violence: Patient Declined (04/26/2024) Humiliation, Afraid, Rape, and Kick questionnaire Fear of Current or Ex-Partner: Patient declined Emotionally Abused: Patient declined Physically Abused: Patient declined Sexually Abused: Patient declined Housing Stability: Unknown (04/26/2024) Housing Stability Vital Sign Unable to Pay for Housing in the Last Year: Patient declined Number of Times Moved in the Last Year: 1 Homeless in the Last Year: No Recent Concern: Housing Stability - High Risk (04/24/2024) Housing Stability Vital Sign Unable to Pay for Housing in the Last Year: Yes Number of Times Moved in the Last Year: 1 Homeless in the Last Year: No SCREENINGS PHYSICAL EXAM ED Triage Vitals [07/08/24 0829] Temp Heart Rate Resp BP 36.6 C (97.8 F) 81 18 125/88 SpO2 Temp Source Heart Rate Source Patient Position 98 % Temporal Monitor -- BP Location FiO2 (%) -- -- Physical Exam Vitals and nursing note reviewed. Constitutional: General: She is not in acute distress. Appearance: She is well-developed. She is obese. She is not ill-appearing. HENT: Head: Normocephalic. Eyes: General: No scleral icterus. Cardiovascular: Rate and Rhythm: Normal rate. Pulmonary: Effort: Pulmonary effort is normal. No respiratory distress. Abdominal: General: Abdomen is protuberant. There is no distension. Palpations: Abdomen is soft. Tenderness: There is abdominal tenderness in the periumbilical area. There is no right CVA tenderness, left CVA tenderness, guarding or rebound. Hernia: A hernia is present. Hernia is present in the ventral area. Comments: Large, incarcerated ventral hernia. Skin: General: Skin is warm and dry. Neurological: Mental Status: She is alert and oriented to person, place, and time. Psychiatric: Mood and Affect: Mood normal. Behavior: Behavior normal. Large, chronically incarcerated ventral hernia. DIAGNOSTIC RESULTS Procedures/EKG: EKG was reviewed by myself. Physician EKG interpretation can be found in [facility] RADIOLOGY (Per Emergency Physician): Interpretation per the Radiologist below, if available at the time of this note: CT abdomen pelvis w contrast Final Result 1. No definite acute abdominopelvic process identified. 2. Large ventral hernia containing fat and nonincarcerated nonobstructed bowel and colon. 3. Simple right renal cyst and 2 indeterminate lesions of the left kidney unchanged since prior exam. 4. Punctate nonobstructive right inferior pole nephrolithiasis. 5. Right adnexal hypodensities measuring up to 3.1 cm, potentially reflecting ovarian cysts. Ultrasound may be obtained for further evaluation. 6. Other chronic and postsurgical findings as discussed. Report Dictated on Electronically Signed By: Petr Blackburn MD Electronically Signed Date/Time: 07/08/2024 9:53 AM EDT ED BEDSIDE ULTRASOUND: Performed by ED Physician - none LABS: Labs Reviewed CBC WITH AUTO DIFFERENTIAL - Abnormal Result Value Auto WBC 8.8 RBC 4.41 Hemoglobin 13.7 Hematocrit 40.7 MCV 92.3 MCH 31.1 MCHC 33.7 RDW 12.6 Platelets 326 MPV 8.6 (*) nRBC 0.0 Neutrophils Relative 67.1 Lymphocytes Relative 23.2 Monocytes Relative 6.6 Eosinophils Relative 2.6 Basophils Relative 0.3 Immature Grans % 0.2 Neutrophils Absolute 5.9 Lymphocytes Absolute 2.1 Monocytes Absolute 0.6 Eosinophils Absolute 0.2 Basophils Absolute 0.0 Immature Grans Absolute 0.0 COMPREHENSIVE METABOLIC PANEL - Abnormal SODIUM 138 POTASSIUM 3.9 CHLORIDE 106 CARBON DIOXIDE 22 ANION GAP 9 UREA NITROGEN 9 CREATININE 0.53 GLUCOSE 111 (*) CALCIUM 9.0 AST (SGOT) 18 ALT 12 ALKALINE PHOSPHATASE 43 ALBUMIN 4.5 BILIRUBIN, TOTAL 0.3 TOTAL PROTEIN 7.1 eGFR >90.0 COMPLETE URINALYSIS - Abnormal Color, Urine Red (*) Clarity, Urine Clear pH, Urine 6.0 Leukocytes, Urine 25 (*) Nitrite, Urine Negative Protein, Urine Negative Glucose, Urine Normal Bilirubin, Urine Negative Ketones, Urine Negative Urobilinogen, Urine Normal Blood, Urine >1.0 (*) Volume, Urine 12 mL RBC, Urine >100 (*) WBC, Urine 3-5 Squamous Epithelial, Urine 6-10 (*) Bacteria, Urine Negative SPECIFIC GRAVITY OF URINE (NUMERIC) 1.005 LIPASE - Normal LIPASE 127 LACTIC ACID WITH REFLEX - Normal LACTIC ACID 1.5 COMPLETE URINALYSIS WITH REFLEX TO CULTURE Narrative: The following orders were created for panel order Urinalysis Complete with reflex to Culture. Procedure Abnormality Status --------- ------ Complete Urinalysis[[id number]] Abnormal Final result Please view results for these tests on the individual orders. All other labs were within normal range or not returned as of this dictation. EMERGENCY DEPARTMENT COURSE and DIFFERENTIAL DIAGNOSIS/MDM: Vitals: Vitals: 07/08/24 0829 07/08/24 0939 BP: 125/88 118/80 Pulse: 81 65 Resp: 18 18 Temp: 36.6 C (97.8 F) TempSrc: Temporal SpO2: 98% 98% Weight: 102 kg (224 lb) Patient presents emergency department for evaluation of acute on chronic abdominal pain with nausea and vomiting and syncopal episode this morning. From the HPI patient's syncopal episode sounds likely vasovagal secondary to her nausea and vomiting. Denied any chest pain, shortness of breath, palpitations. No lightheadedness or similar symptoms no repeat syncope since. She does have a long history of chronic abdominal pain secondary to complex surgical history as described in the HPI and physical exam. On physical exam she is tender to palpation in the large ventral hernia as well as diffusely throughout the abdomen but no acute abdominal findings. CT of the abdomen pelvis was obtained given her significant history and shows no evidence of obstruction or other acute abnormality, chronic and surgical changes as noted. No significant derangements found on CBC, CMP, lipase, urinalysis, or lactic acid level. Patient was treated with Dilaudid and Phenergan in the ED with significant improvement in symptoms. I discussed the findings with the patient she states she is comfortable being discharged for follow-up with her surgeon. She states that she has a prescription of oxycodone right now but is out of Phenergan. I will provide a prescription for Phenergan for further symptom management. Return precautions were discussed and questions answered at the bedside prior to discharge. Diagnoses as of 07/08/24 1033 Abdominal pain, generalized Ventral hernia without obstruction or gangrene Medications HYDROmorphone (Dilaudid) injection 1 mg (1 mg IntraVENous Given 07/08/24 0853) promethazine (Phenergan) injection 25 mg (25 mg IntraMUSCular Given 07/08/24 0852) HYDROmorphone (Dilaudid) injection 1 mg (1 mg IntraVENous Given 07/08/24 0941) REVAL: CRITICAL CARE TIME None CONSULTS: None PROCEDURES: Unless otherwise noted below, none Procedures Patients symptoms are consistent with sepsis, severe sepsis, or septic shock (If yes use .sepsiscoremeasure): No FINAL IMPRESSION 1. Abdominal pain, generalized 2. Ventral hernia without obstruction or gangrene DISPOSITION Discharge 07/08/2024 10:31:49 AM PATIENT REFERRED TO: Serafin Taylor DO [address] [place] [address] [address] [facility] [address] Schedule an appointment as soon as possible for a visit [facility] Emergency Dept [address] [facility] [id number] If symptoms worsen DISCHARGE MEDICATIONS: Current Discharge Medication List START taking these medications Details promethazine (Phenergan) 25 MG tablet Take 1 tablet (25 mg) by mouth every 8 hours as needed for nausea or vomiting for up to 14 days. Qty: 42 tablet, Refills: 0 (Comment: Please note this report has been produced using speech recognition software and may contain errors related to that system including errors in grammar, punctuation, and spelling, as well as words and phrases that may be inappropriate. If there are any questions or concerns please feel free to contact the dictating provider for clarification.) Vishal Garcia MD (electronically signed) Emergency Medicine Provider Vishal Garcia MD 07/08/24 1035 [facility] 07-08-2024 Telephone encounter Note S: Patient spoke with CAC nurse regarding incisional hernia. B: Onset of symptoms/concern: today A: Patient scheduled for hernia repair surgery on 09/03/24, states she passed out this morning due to the pain and vomited once, has had the hernia since 2019, states it's about the size of a watermelon and has been that size for a long time, tender to the touch but worse since she passed out and hit it. R: Patient advised to go to ED for evaluation, verbalized understanding, states she will go to [facility]. Reason for Disposition [1] Vomiting AND [2] hernia is more painful or swollen than usual Protocols used: [id number] [facility] 07-08-2024 Miscellaneous Notes S: Patient spoke with [facility] nurse regarding incisional hernia. B: Onset of symptoms/concern: today A: Patient scheduled for hernia repair surgery on 09/03/24, states she passed out this morning due to the pain and vomited once, has had the hernia since 2019, states it's about the size of a watermelon and has been that size for a long time, tender to the touch but worse since she passed out and hit it. R: Patient advised to go to ED for evaluation, verbalized understanding, states she will go to [facility]. Reason for Disposition [1] Vomiting AND [2] hernia is more painful or swollen than usual Protocols used: [id number] documented in this encounter [facility] 06-25-2024 Telephone encounter Note Patient called. Per Jb yes surgery has been approved and he will be calling her later this afternoon or tomorrow to schedule [facility] 06-25-2024 Miscellaneous Notes Patient called. Per Jb yes surgery has been approved and he will be calling her later this afternoon or tomorrow to schedule Patient is calling in again asking if there have been any updates as far as surgery approval by insurance or any plans to schedule. Please contact to advise. Patient called in wanting to know any updates with her insurance to schedule surgery. Please return call to patient. DP Per Bariatric comments: LM No additional benja procedure, had prior DS, no surgical option. LB 01/2024 Pt last seen ALS 06/13/24 by LM and OV note states: Plan: Initial Pre-Operative Testing Primary Procedure: Open repair of incarcerated recurrent incisional hernia repair with mesh excision, mesh replacement, component separation, panniculectomy Initial Testing: None Clearance: PAT Bowel Prep: Miralax w/ atbx Preop SQ Heparin: yes Location: [facility] - 7 hrs Pt calling to find out if her surgery got approved through her insurance company so she can get it scheduled? documented in this encounter [facility] [employer] 06-25-2024 Telephone encounter Note Patient is calling in again asking if there have been any updates as far as surgery approval by insurance or any plans to schedule. Please contact to advise. [facility] [employer] 06-22-2024 Telephone encounter Note Talked with patient all questions answered [facility] [employer] 06-22-2024 Miscellaneous Notes Talked with patient all questions answered Patient called in wanting to speak with Jb about scheduling her surgery or if there is any updates on when she will be schedule. She stated she is sorry to keep calling, just wants to get this taken care of. Explained that he was in clinic and I would give him the message. DP documented in this encounter [facility] [employer] 06-22-2024 Telephone encounter Note Patient called in wanting to speak with Jb about scheduling her surgery or if there is any updates on when she will be schedule. She stated she is sorry to keep calling, just wants to get this taken care of. Explained that he was in clinic and I would give him the message. DP [employer] 06-21-2024 Telephone encounter Note Patient called in wanting to know any updates with her insurance to schedule surgery. Please return call to patient. DP [employer] 06-21-2024 Telephone encounter Note Per Bariatric comments: LM No additional benja procedure, had prior DS, no surgical option. LB 01/2024 Pt last seen ALS 06/13/24 by LM and OV note states: Plan: Initial Pre-Operative Testing Primary Procedure: Open repair of incarcerated recurrent incisional hernia repair with mesh excision, mesh replacement, component separation, panniculectomy Initial Testing: None Clearance: PAT Bowel Prep: Miralax w/ atbx Preop SQ Heparin: yes Location: [facility] - 7 hrs [employer] 06-21-2024 Telephone encounter Note Pt calling to find out if her surgery got approved through her insurance company so she can get it scheduled? [facility] 06-13-2024 History of Present illness Narrative Images from the original note were not included. [employer] [facility] Advanced Laparoscopic Surgery Patient Name: Mel Wall Date: 06/13/24 HPI (01/06/24): Mel Wall is a 38 y.o. female who presents with large recurrent incisional hernia. She has a complicated surgery history including an appendectomy, lap rui, janel-en-y duodenojejunostomy for bile reflux in 2008, 3x hernia repairs (2 with mesh) in 2018, ex lap for SBO in 2018, recurrent incisional hernia repair with mesh again in 2019. Today, she states that she is having a hard time with abdominal pain. Was recently in the ER on 12/28 and states that she was unable to work for a couple of days this past week due to the pain. PMH significant for bipolar disorder, anxiety/depression. Denies substance abuse. Plan: - CeDAR risk 70% - rec'd goal weight 210-220# - f/u 6-8 mos Interval History: Today, she presents for follow up. Unfortunately was hospitalized twice for symptoms of increased abdominal pain, nausea, emesis. Workup suggestive of partial SBO. Symptoms improved conservatively. She is pleased to report that she's lost about 35# over the past 6 months and wishes to proceed with surgery. Additionally, she reports issues with skin breakdown under her pannus, which she has tried to treat with creams and powders, however breakdown persists. Notes reviewed: - hospitalization, 04/24/24-04/26/24 - hospitalization 04/10/24-04/13/24 - 11/15/23 Data reviewed: - SBFT, 04/25/24: mild dilation of proximal small bowel, remainder of small bowel appears decompressed, contrast reaches colon within 2.5hr - CT abd/pel, 04/24/24: personally interpreted, large ventral hernia containing multiple loops of bowel, dilation of small bowel anastomosis - CT abd/pel, 11/13/23: personally interpreted, large ventral hernia containing multiple loops of non-dilated bowel PMHx: Past Medical History: Diagnosis Date Anxiety Bile reflux gastritis Bipolar affective (HCC) Depression Morbid obesity, unspecified obesity type (HCC) PSHx: Past Surgical History: Procedure Laterality Date APPENDECTOMY BILIOPANCREATIC DIVERSION 10/23/2008 Sherie @ [facility]; janel-en-y duodenojejunostomy for bile reflux CHOLECYSTECTOMY 02/2007 lap COLONOSCOPY N/A 11/29/2023 [facility]; repeat in 11/2033 EXPLORATORY LAPAROTOMY 06/10/2019 Veronica @ [facility]; ex lap, [facility] INCISION AND DRAINAGE OF WOUND 08/09/2013 [facility]; I&D of surgical incision of LLQ INCISIONAL HERNIA REPAIR 10/20/2017 [facility]; open primary repair INCISIONAL HERNIA REPAIR 07/12/2018 [facility]; open w/ mesh INCISIONAL HERNIA REPAIR 09/26/2018 [facility]; lap w/ mesh INCISIONAL HERNIA REPAIR 03/11/2020 [facility]; repair w/ mesh excision, mesh replacement ([facility] Mesh w/ Echo), [facility] INCISIONAL HERNIA REPAIR 07/19/2015 [facility]; open repair w/ mesh SOFT TISSUE MASS EXCISION 08/02/2013 [facility]; STM excision of LLQ TONSILLECTOMY PFMHx: Family History Problem Relation Name Age of Onset Hypertension Father Diabetes Father ALL: Allergies Allergen Reactions Ketorolac Hives and Shortness of breath Other reaction(s): Hives Ondansetron Shortness of breath and Hives Other reaction(s): Hives, Respiratory distress Seasonal Itching and Other Stuffy nose MEDS: Current Outpatient Medications Medication Sig Dispense Refill acetaminophen (Tylenol) 325 MG tablet Take 650 mg by mouth every 6 hours as needed for mild pain (1-3), moderate pain (4-6), headaches or fever. albuterol 108 (90 Base) MCG/ACT inhaler Inhale 2 puffs every 4 hours as needed for wheezing or shortness of breath. ibuprofen 800 MG tablet Take 800 mg by mouth every 6 hours as needed. FLUoxetine (PROzac) 20 MG capsule Take 20 mg by mouth in the morning. methocarbamol (Robaxin) 750 MG tablet Take 1 tablet (750 mg) by mouth 3 times daily as needed for muscle spasms for up to 10 days. 30 tablet 0 phentermine (Adipex-P) 37.5 MG tablet Take 1 tablet (37.5 mg) by mouth every morning (before breakfast). 30 tablet 0 phentermine (Adipex-P) 37.5 MG tablet Take 1 tablet (37.5 mg) by mouth every morning (before breakfast). 30 tablet 0 No current facility-administered medications for this visit. SOCIAL Hx: Social History Socioeconomic History Marital status: Single Spouse name: Not on file Number of children: Not on file Years of education: Not on file Highest education level: Not on file Occupational History Not on file Tobacco Use Smoking status: Former Types: Cigarettes Smokeless tobacco: Never Substance and Sexual Activity Alcohol use: Not Currently Drug use: Yes Frequency: 2.0 times per week Types: Marijuana Comment: edibles Sexual activity: Not Currently Other Topics Concern Not on file Social History Narrative Not on file Social Determinants of Health Financial Resource Strain: High Risk (04/24/2024) Overall Financial Resource Strain (CARDIA) Difficulty of Paying Living Expenses: Very hard Food Insecurity: Patient Declined (04/26/2024) Hunger Vital Sign Worried About Running Out of Food in the Last Year: Patient declined Ran Out of Food in the Last Year: Patient declined Recent Concern: Food Insecurity - Food Insecurity Present (04/24/2024) Hunger Vital Sign Worried About Running Out of Food in the Last Year: Often true Ran Out of Food in the Last Year: Often true Transportation Needs: Patient Declined (04/26/2024) PRAPARE - Transportation Lack of Transportation (Medical): Patient declined Lack of Transportation (Non-Medical): Patient declined Recent Concern: Transportation Needs - Unmet Transportation Needs (04/24/2024) PRAPARE - Transportation Lack of Transportation (Medical): Yes Lack of Transportation (Non-Medical): Yes Physical Activity: Sufficiently Active (04/24/2024) Exercise Vital Sign Days of Exercise per Week: 7 days Minutes of Exercise per Session: 60 min Stress: Stress Concern Present (04/24/2024) [employer] [place] [employer] - Occupational Stress Questionnaire Feeling of Stress : Very much Social Connections: Moderately Integrated (04/24/2024) Social Connection and Isolation Panel [NHANES] Frequency of Communication with Friends and Family: Twice a week Frequency of Social Gatherings with Friends and Family: Once a week Attends [employer] Services: More than 4 times per year Active Member of Clubs or Organizations: No Attends Club or Organization Meetings: More than 4 times per year Marital Status: Intimate Partner Violence: Patient Declined (04/26/2024) Humiliation, Afraid, Rape, and Kick questionnaire Fear of Current or Ex-Partner: Patient declined Emotionally Abused: Patient declined Physically Abused: Patient declined Sexually Abused: Patient declined Housing Stability: Unknown (04/26/2024) Housing Stability Vital Sign Unable to Pay for Housing in the Last Year: Patient declined Number of Times Moved in the Last Year: 1 Homeless in the Last Year: No Recent Concern: Housing Stability - High Risk (04/24/2024) Housing Stability Vital Sign Unable to Pay for Housing in the Last Year: Yes Number of Times Moved in the Last Year: 1 Homeless in the Last Year: No ROS: Review of Systems All other systems reviewed and are negative. DIAGNOSTIC EVALUATION: as described above Physical Examination: BP 126/84 (BP Location: Right arm, Patient Position: Sitting, BP Cuff Size: Adult) Pulse 96 Temp 36.8 C (98.3 F) (Temporal) Ht 5' 5 (1.651 m) Wt 227 lb 9.6 oz (103 kg) LMP 05/24/2024 BMI 37.87 kg/m She stands Height: 5' 5 (165.1 cm) tall with a weight of Weight: 227 lb 9.6 oz (103 kg), resulting in a BMI of Body mass index is 37.87 kg/m . Physical Exam Vitals and nursing note reviewed. Constitutional: Appearance: Normal appearance. She is not ill-appearing or toxic-appearing. HENT: Head: Normocephalic and atraumatic. Nose: Nose normal. Eyes: General: Vision grossly intact. Conjunctiva/sclera: Conjunctivae normal. Neck: Trachea: Trachea and phonation normal. Cardiovascular: Rate and Rhythm: Normal rate. Pulses: Normal pulses. Pulmonary: Effort: Pulmonary effort is normal. No respiratory distress. Breath sounds: No rales. Abdominal: General: Abdomen is protuberant. Comments: Large incarcerated recurrent incisional hernia with low hanging pannus Musculoskeletal: General: No deformity or signs of injury. Skin: General: Skin is warm and dry. Neurological: Mental Status: She is alert and oriented to person, place, and time. Mental status is at baseline. Psychiatric: Behavior: Behavior normal. Judgment: Judgment normal. Assessment/Plan Mel was seen today for follow-up. Diagnoses and all orders for this visit: Recurrent incisional hernia (Primary) Abdominal pain, generalized Ms. Wall is a 38yo F presenting for follow up of large incarcerated recurrent incisional hernia. Discussed risks of perioperative complications, including postop pressure intolerance that may require prolonged intubation and ICU admission, amongst other complications. She understands all risks and possibility of others and wishes ot proceed with scheduling. I met with the patient today to discuss risks and benefits of abdominal wall reconstruction with possible panniculectomy including, but not limited to, recurrence of the hernia, chronic pain, nerve injury, damage to surrounding organs/structures, risk of fistula, infection including mesh infection and need to remove the mesh, and injury to surrounding structures. We discussed potential for hemorrhage, infection, incomplete resolution of their symptoms, as well as cardiac and pulmonary-related complications. Additionally if panniculectomy is necessary, patient understands that they may lose their umbilicus and that I do not guarantee a cosmetic result. The goal of this operation is to restore physiologic continuity of their abdominal wall, not a cosmetic procedure. Patient understands that they may have multiple drains and/or a wound vac postoperatively. She was also given alternative non-operative treatment plans. The patient understands and wishes to proceed with recommendations. Panniculectomy is medically necessary due to the following: - causes chronic intermittent intertrigo (dermatitis on opposed surfaces of the skin, skin irritation, infection, or chafing) that consistently recurs and remains refractory over 3 mos while receiving appropriate medical therapy, including creams and powders - pannus is located along upper abdomen and contains majority of patient's intraabdominal organs - if pannus is not removed at the time of surgery, there remains a very high risk of postop seroma/hematoma/infection that would contribute to possible rehospitalization, longterm atbx use, possibly re-operation As such, the patient was deemed a reasonable candidate to undergo panniculectomy. Plan: Initial Pre-Operative Testing Primary Procedure: Open repair of incarcerated recurrent incisional hernia repair with mesh excision, mesh replacement, component separation, panniculectomy Initial Testing: None Clearance: PAT Bowel Prep: Miralax w/ atbx Preop SQ Heparin: yes Location: [facility] - 7 hrs I personally performed the evaluation and management of Mel Wall in the development of a treatment plan for this patient. I personally interviewed the patient and performed an individual physical examination. In addition, I discussed the patient's condition and treatment options with them. I have also reviewed and agree with the past medical, family and social history unless otherwise noted. All of the patient's questions were answered. I personally spent 40 minutes of time between the face to face encounter, physical exam, reviewing the medical history, coordinating the patient's care, counseling/educating the patient, ordering prescriptions/medications/tests/proc edures, interpreting results and documenting clinical information in the patient's electronic health record on the day of the encounter. Patient Care Team: [facility] (Inactive) as PCP - General Serafin Taylor DO as Surgeon (General Surgery) se documented in this encounter [facility] 06-13-2024 History of Present illness Narrative Images from the original note were not included. [facility] Advanced Laparoscopic Surgery Patient Name: Mel Wall Date: 06/13/24 HPI (01/06/24): Mel Wall is a 38 y.o. female who presents with large recurrent incisional hernia. She has a complicated surgery history including an appendectomy, lap rui, janel-en-y duodenojejunostomy for bile reflux in 2008, 3x hernia repairs (2 with mesh) in 2017, ex lap for SBO in 2018, recurrent incisional hernia repair with mesh again in 2019. Today, she states that she is having a hard time with abdominal pain. Was recently in the ER on 12/28 and states that she was unable to work for a couple of days this past week due to the pain. PMH significant for bipolar disorder, anxiety/depression. Denies substance abuse. Plan: - CeDAR risk 70% - rec'd goal weight 210-220# - f/u 6-8 mos Interval History: Today, she presents for follow up. Unfortunately was hospitalized twice for symptoms of increased abdominal pain, nausea, emesis. Workup suggestive of partial SBO. Symptoms improved conservatively. She is pleased to report that she's lost about 35# over the past 6 months and wishes to proceed with surgery. Additionally, she reports issues with skin breakdown under her pannus, which she has tried to treat with creams and powders, however breakdown persists. Notes reviewed: - hospitalization, 04/24/24-04/26/24 - hospitalization 04/10/24-04/13/24 - 11/15/23 Data reviewed: - SBFT, 04/25/24: mild dilation of proximal small bowel, remainder of small bowel appears decompressed, contrast reaches colon within 2.5hr - CT abd/pel, 04/24/24: personally interpreted, large ventral hernia containing multiple loops of bowel, dilation of small bowel anastomosis - CT abd/pel, 11/13/23: personally interpreted, large ventral hernia containing multiple loops of non-dilated bowel PMHx: Past Medical History: Diagnosis Date Anxiety Bile reflux gastritis Bipolar affective (HCC) Depression Morbid obesity, unspecified obesity type (HCC) PSHx: Past Surgical History: Procedure Laterality Date APPENDECTOMY BILIOPANCREATIC DIVERSION 10/23/2008 Sherie @ [facility]; janel-en-y duodenojejunostomy for bile reflux CHOLECYSTECTOMY 02/2007 lap COLONOSCOPY N/A 11/29/2023 [facility]; repeat in 11/2033 EXPLORATORY LAPAROTOMY 06/10/2019 Veronica @ [facility]; ex lap, [facility] INCISION AND DRAINAGE OF WOUND 08/09/2013 [facility]; I&D of surgical incision of LLQ INCISIONAL HERNIA REPAIR 10/20/2017 [facility]; open primary repair INCISIONAL HERNIA REPAIR 07/12/2018 [facility]; open w/ mesh INCISIONAL HERNIA REPAIR 09/26/2018 [facility]; lap w/ mesh INCISIONAL HERNIA REPAIR 03/11/2020 ; repair w/ mesh excision, mesh replacement ([facility] Mesh w/ Echo), [facility] INCISIONAL HERNIA REPAIR 07/19/2015 [facility]; open repair w/ mesh SOFT TISSUE MASS EXCISION 08/02/2013 [place]; STM excision of LLQ TONSILLECTOMY PFMHx: Family History Problem Relation Name Age of Onset Hypertension Father Diabetes Father ALL: Allergies Allergen Reactions Ketorolac Hives and Shortness of breath Other reaction(s): Hives Ondansetron Shortness of breath and Hives Other reaction(s): Hives, Respiratory distress Seasonal Itching and Other Stuffy nose MEDS: Current Outpatient Medications Medication Sig Dispense Refill acetaminophen (Tylenol) 325 MG tablet Take 650 mg by mouth every 6 hours as needed for mild pain (1-3), moderate pain (4-6), headaches or fever. albuterol 108 (90 Base) MCG/ACT inhaler Inhale 2 puffs every 4 hours as needed for wheezing or shortness of breath. ibuprofen 800 MG tablet Take 800 mg by mouth every 6 hours as needed. FLUoxetine (PROzac) 20 MG capsule Take 20 mg by mouth in the morning. methocarbamol (Robaxin) 750 MG tablet Take 1 tablet (750 mg) by mouth 3 times daily as needed for muscle spasms for up to 10 days. 30 tablet 0 phentermine (Adipex-P) 37.5 MG tablet Take 1 tablet (37.5 mg) by mouth every morning (before breakfast). 30 tablet 0 phentermine (Adipex-P) 37.5 MG tablet Take 1 tablet (37.5 mg) by mouth every morning (before breakfast). 30 tablet 0 No current facility-administered medications for this visit. SOCIAL Hx: Social History Socioeconomic History Marital status: Single Spouse name: Not on file Number of children: Not on file Years of education: Not on file Highest education level: Not on file Occupational History Not on file Tobacco Use Smoking status: Former Types: Cigarettes Smokeless tobacco: Never Substance and Sexual Activity Alcohol use: Not Currently Drug use: Yes Frequency: 2.0 times per week Types: Marijuana Comment: edibles Sexual activity: Not Currently Other Topics Concern Not on file Social History Narrative Not on file Social Determinants of Health Financial Resource Strain: High Risk (04/24/2024) Overall Financial Resource Strain (CARDIA) Difficulty of Paying Living Expenses: Very hard Food Insecurity: Patient Declined (04/26/2024) Hunger Vital Sign Worried About Running Out of Food in the Last Year: Patient declined Ran Out of Food in the Last Year: Patient declined Recent Concern: Food Insecurity - Food Insecurity Present (04/24/2024) Hunger Vital Sign Worried About Running Out of Food in the Last Year: Often true Ran Out of Food in the Last Year: Often true Transportation Needs: Patient Declined (04/26/2024) PRAPARE - Transportation Lack of Transportation (Medical): Patient declined Lack of Transportation (Non-Medical): Patient declined Recent Concern: Transportation Needs - Unmet Transportation Needs (04/24/2024) PRAPARE - Transportation Lack of Transportation (Medical): Yes Lack of Transportation (Non-Medical): Yes Physical Activity: Sufficiently Active (04/24/2024) Exercise Vital Sign Days of Exercise per Week: 7 days Minutes of Exercise per Session: 60 min Stress: Stress Concern Present (04/24/2024) [employer] [place] [employer] - Occupational Stress Questionnaire Feeling of Stress : Very much Social Connections: Moderately Integrated (04/24/2024) Social Connection and Isolation Panel [NHANES] Frequency of Communication with Friends and Family: Twice a week Frequency of Social Gatherings with Friends and Family: Once a week Attends [employer] Services: More than 4 times per year Active Member of Clubs or Organizations: No Attends Club or Organization Meetings: More than 4 times per year Marital Status: Intimate Partner Violence: Patient Declined (04/26/2024) Humiliation, Afraid, Rape, and Kick questionnaire Fear of Current or Ex-Partner: Patient declined Emotionally Abused: Patient declined Physically Abused: Patient declined Sexually Abused: Patient declined Housing Stability: Unknown (04/26/2024) Housing Stability Vital Sign Unable to Pay for Housing in the Last Year: Patient declined Number of Times Moved in the Last Year: 1 Homeless in the Last Year: No Recent Concern: Housing Stability - High Risk (04/24/2024) Housing Stability Vital Sign Unable to Pay for Housing in the Last Year: Yes Number of Times Moved in the Last Year: 1 Homeless in the Last Year: No ROS: Review of Systems All other systems reviewed and are negative. DIAGNOSTIC EVALUATION: as described above Physical Examination: BP 126/84 (BP Location: Right arm, Patient Position: Sitting, BP Cuff Size: Adult) Pulse 96 Temp 36.8 C (98.3 F) (Temporal) Ht 5' 5 (1.651 m) Wt 227 lb 9.6 oz (103 kg) LMP 05/24/2024 BMI 37.87 kg/m She stands Height: 5' 5 (165.1 cm) tall with a weight of Weight: 227 lb 9.6 oz (103 kg), resulting in a BMI of Body mass index is 37.87 kg/m . Physical Exam Vitals and nursing note reviewed. Constitutional: Appearance: Normal appearance. She is not ill-appearing or toxic-appearing. HENT: Head: Normocephalic and atraumatic. Nose: Nose normal. Eyes: General: Vision grossly intact. Conjunctiva/sclera: Conjunctivae normal. Neck: Trachea: Trachea and phonation normal. Cardiovascular: Rate and Rhythm: Normal rate. Pulses: Normal pulses. Pulmonary: Effort: Pulmonary effort is normal. No respiratory distress. Breath sounds: No rales. Abdominal: General: Abdomen is protuberant. Comments: Large incarcerated recurrent incisional hernia with low hanging pannus Musculoskeletal: General: No deformity or signs of injury. Skin: General: Skin is warm and dry. Neurological: Mental Status: She is alert and oriented to person, place, and time. Mental status is at baseline. Psychiatric: Behavior: Behavior normal. Judgment: Judgment normal. Assessment/Plan Mel was seen today for follow-up. Diagnoses and all orders for this visit: Recurrent incisional hernia (Primary) Abdominal pain, generalized Ms. Wall is a 38yo F presenting for follow up of large incarcerated recurrent incisional hernia. Discussed risks of perioperative complications, including postop pressure intolerance that may require prolonged intubation and ICU admission, amongst other complications. She understands all risks and possibility of others and wishes ot proceed with scheduling. I met with the patient today to discuss risks and benefits of abdominal wall reconstruction with possible panniculectomy including, but not limited to, recurrence of the hernia, chronic pain, nerve injury, damage to surrounding organs/structures, risk of fistula, infection including mesh infection and need to remove the mesh, and injury to surrounding structures. We discussed potential for hemorrhage, infection, incomplete resolution of their symptoms, as well as cardiac and pulmonary-related complications. Additionally if panniculectomy is necessary, patient understands that they may lose their umbilicus and that I do not guarantee a cosmetic result. The goal of this operation is to restore physiologic continuity of their abdominal wall, not a cosmetic procedure. Patient understands that they may have multiple drains and/or a wound vac postoperatively. She was also given alternative non-operative treatment plans. The patient understands and wishes to proceed with recommendations. Panniculectomy is medically necessary due to the following: - causes chronic intermittent intertrigo (dermatitis on opposed surfaces of the skin, skin irritation, infection, or chafing) that consistently recurs and remains refractory over 3 mos while receiving appropriate medical therapy, including creams and powders - pannus is located along upper abdomen and contains majority of patient's intraabdominal organs - if pannus is not removed at the time of surgery, there remains a very high risk of postop seroma/hematoma/infection that would contribute to possible rehospitalization, tank terminal gauger atbx use, possibly re-operation As such, the patient was deemed a reasonable candidate to undergo panniculectomy. Plan: Initial Pre-Operative Testing Primary Procedure: Open repair of incarcerated recurrent incisional hernia repair with mesh excision, mesh replacement, component separation, panniculectomy Initial Testing: None Clearance: PAT Bowel Prep: Miralax w/ atbx Preop SQ Heparin: yes Location: [facility] - 7 hrs I personally performed the evaluation and management of Mel Wall in the development of a treatment plan for this patient. I personally interviewed the patient and performed an individual physical examination. In addition, I discussed the patient's condition and treatment options with them. I have also reviewed and agree with the past medical, family and social history unless otherwise noted. All of the patient's questions were answered. I personally spent 40 minutes of time between the face to face encounter, physical exam, reviewing the medical history, coordinating the patient's care, counseling/educating the patient, ordering prescriptions/medications/tests/proc edures, interpreting results and documenting clinical information in the patient's electronic health record on the day of the encounter. Patient Care Team: [facility] (Inactive) as PCP - General Serafin Taylor DO as Surgeon (General Surgery) se TALKED WITH PATIENT SURGERY SCHEDULED PAPERWORK SENT AUTH RECEIVED documented in this encounter [facility] 06-04-2024 Telephone encounter Note D/w Dr. Taylor - please schedule f/u with him, thanks. [facility] 06-04-2024 Miscellaneous Notes D/w Dr. Taylor - please schedule f/u with him, thanks. Pt called in and said she was excited and had reached her goal weight and wondered if there was any updates. I told her Dr Taylor was in surgery and you did not have time to talk to him . Called pt and LVM with message below She's done a great job! Dr. Taylor will return on Tuesday and I will discuss next steps with him at that time. Please let her know, thanks Pt called in and stated her current weight is 226 lb and was told it needed to be down to 225 to have ventral hernia surgery performed with Dr Taylor. She was hoping the 1 lb difference would be okay. -symptoms have been bad and she would like to have this done ANNE if possible -if a yes, pt would like to try for first available appt. documented in this encounter [facility] 06-04-2024 Telephone encounter Note Pt called in and said she was excited and had reached her goal weight and wondered if there was any updates. I told her Dr Taylor was in surgery and you did not have time to talk to him . [facility] 05-31-2024 Telephone encounter Note Called pt and LVM with message below [facility] 05-31-2024 Telephone encounter Note She's done a great job! Dr. Taylor will return on Tuesday and I will discuss next steps with him at that time. Please let her know, thanks [facility] 05-31-2024 Telephone encounter Note Pt called in and stated her current weight is 226 lb and was told it needed to be down to 225 to have ventral hernia surgery performed with Dr Taylor. She was hoping the 1 lb difference would be okay. -symptoms have been bad and she would like to have this done ANNE if possible -if a yes, pt would like to try for first available appt. [facility] 05-25-2024 Telephone encounter Note PDMP checked and appropriate. Phentermine refilled. Recommend patient see Dr Newberry for weight loss clinic. Will obtain patient agreement and then place referral once insurance issues have been resolved. [facility] 05-25-2024 Miscellaneous Notes PDMP checked and appropriate. Phentermine refilled. Recommend patient see Dr Newberry for weight loss clinic. Will obtain patient agreement and then place referral once insurance issues have been resolved. documented in this encounter [facility] 05-21-2024 Telephone encounter Note Return call received from patient who confirms that she has been experiencing many episodes of emesis, but states that she has been able to keep small amounts of Gatorlyte down. Patient states that she is unsure whether her symptoms are due to the hernia or if she is actually ill. Patient confirms that she will report to the ED in [place] if her symptoms worsen or fail to resolve, but she is reluctant to go there unless absolutely necessary due to a current lapse in her healthcare coverage. Patient inquiring if she could get a work excuse for today 05/21/24 and for tomorrow 05/22/24, so that she can try to rest her body and recover. Please advise. [facility] 05-21-2024 Miscellaneous Notes Return call received from patient who confirms that she has been experiencing many episodes of emesis, but states that she has been able to keep small amounts of Gatorlyte down. Patient states that she is unsure whether her symptoms are due to the hernia or if she is actually ill. Patient confirms that she will report to the ED in [place] if her symptoms worsen or fail to resolve, but she is reluctant to go there unless absolutely necessary due to a current lapse in her healthcare coverage. Patient inquiring if she could get a work excuse for today 05/21/24 and for tomorrow 05/22/24, so that she can try to rest her body and recover. Please advise. Attempted to reach patient Mel Wall at [phone] with no answer. Left a voicemail to call to speak to nursing.Will try again at a later time. documented in this encounter [facility] 05-21-2024 Telephone encounter Note Attempted to reach patient Mel Wall at [phone] with no answer. Left a voicemail to call to speak to nursing.Will try again at a later time. [facility] 05-18-2024 Miscellaneous Notes Due to insurance complications and surgeon appointment being pushed back, will plan to cover patient's pain until seen by surgeon / until surgery takes place. Will then cover at current dose for one week post op and aft er that will wean medication off. Patient cannot have NSAIDs due to previous gastric surgery. Plan discussed with Dr. Gong. documented in this encounter [facility] 05-18-2024 Telephone encounter Note Due to insurance complications and surgeon appointment being pushed back, will plan to cover patient's pain until seen by surgeon / until surgery takes place. Will then cover at current dose for one week post op and aft er that will wean medication off. Patient cannot have NSAIDs due to previous gastric surgery. Plan discussed with Dr. Gong. [facility] 05-11-2024 Telephone encounter Note PDMP checked and appropriate. Will fill Rx for 7 more days while she is getting insurance issues worked out and reschedules appointment with surgeon. [facility] 05-11-2024 Miscellaneous Notes PDMP checked and appropriate. Will fill Rx for 7 more days while she is getting insurance issues worked out and reschedules appointment with surgeon. documented in this encounter [facility] 05-09-2024 Telephone encounter Note Pt. Update 05.09.24- gastro call left message Note: K43.9 Abdominal all hernia [facility] 05-09-2024 Miscellaneous Notes Pt. Update 05.09.24- gastro call left message Note: K43.9 Abdominal all hernia documented in this encounter [facility] 05-08-2024 Telephone encounter Note Referral to General Surgery entered into the [facility] portal on 05/08/24. Confirmation number [id number]. [facility] 05-08-2024 Miscellaneous Notes Referral to General Surgery entered into the [facility] portal on 05/08/24. Confirmation number [id number]. documented in this encounter [facility] 05-04-2024 Telephone encounter Note Referral entered: [id number] Vicky [facility] 05-04-2024 Miscellaneous Notes Referral entered: [id number] Vicky documented in this encounter [facility] 05-04-2024 History of Present illness Narrative Images from the original note were not included. Nanci Diaz APRN [facility] [address] [place] [address] Social Director Center / [address] [place] [address] Visit Date: May 04, 2024 Name: Mel Wall Date of : 1985 MRN/E #: [id number] Chief Complaint: Patient presents with: Establish Care Subjective Mel Wall is a 38 year old female here for a new patient visit to establish [facility] and also has the following complaints:abdominal hernia that needs repair. Overall: Aside from hernia no other major complaints. Is anxious because of the hernia; she is missing work and cannot function normally. In 2007 had abdominal surgery. Not a Janel En Y, but a switch surgery, whatever that means. Eight years later (2015), developed first hernia at incision site, Continues to develop a different hernia or twisting pretty much yearly. Mesh was removed March 2022. Since then, pain has been ongoing. In the last three months, sleep has been difficult. Pain has been so bad that she gets dizzy. Pain causes her to vomit. Will get a sharp pain and feels like her abdomen is on fire and takes her breath away. Before surgery she was 330 lbs. Does not feel like current surgeon is listening to/ hearing her. Is only admitting and managing acute pain, but is not fixing the problem. Exercise: Hikes - when able;loves it. Loves to fish and swim. Hernia is limiting ability to function and do these things. Bowel movements: Has been using miralax for last week to help with constipation. In the last few days has been noting blood clots with almost every bowel movement. Bowel movements are painful. Does not have any anal pain, pain is all abdominal. The history is provided by the patient. Review of Systems HENT: Negative. Respiratory: Negative. Cardiovascular: Negative. Gastrointestinal: Positive for abdominal pain, nausea and vomiting. Neurological: Positive for dizziness (secondardy to pain). Psychiatric/Behavioral: The patient is nervous/anxious (secondary to hernia). Active Non-Hospital Problems Diagnosis Panic disorder with agoraphobia Social phobia Depression Seeing counseling Center. Dr. Esteves Anxiety Abdominal wall mass of left lower quadrant Scar tissue with abscess. Resolved Routine gynecological examination Dr. Dukes Ventral hernia without obstruction or gangrene Mixed obsessional thoughts and acts Recurrent major depressive disorder, in partial remission (HCC) Chronic post-traumatic stress disorder (PTSD) Recurrent ventral hernia Ventral hernia Chronic pain syndrome Seeing [facility]: Dr. Moore Omental infarction ([facility]) Obesity, Class III, BMI 40-49.9 (morbid obesity) ([facility]) Headache(784.0) Bipolar 1 disorder PAST MEDICAL HISTORY Diagnosis Date Abdominal wall mass of left lower quadrant 07/24/2013 Scar tissue with abscess. Resolved Anxiety Bipolar 1 disorder ([facility]) Chronic pain syndrome 08/06/2019 Seeing [facility]: Dr. Moore Depression Headache(784.0) 10/18/2013 Obesity, Class III, BMI 40-49.9 (morbid obesity) ([facility]) 01/24/2018 Panic disorder 11/05/[address] Dukes Social phobia 11/05/2014 Ventral hernia 12/21/2019 PAST SURGICAL HISTORY Procedure Laterality Date APPENDECTOMY HX 2007 DELIVERY ONLY ,, COLONOSCOPY 2007 EXC TUMOR SOFT TISSUE ABDOMINAL WALL SUBQ 3+CM 08/02/13 LLQ prior incision, stitch granuloma/chronic abscess INCISION & DRAINAGE COMPLEX PO WOUND INFECTION 08/09/13 LAPS SURG CHOLECYSTECTOMY W/CHOLANGIOGRAPHY 03-08-07 PAST SURGICAL HISTORY OF hernia repair x6 PAST SURGICAL HISTORY OF 06/10/2019 Open lysis of adhesions JANEL-EN-Y W/GASTROENTEROS 10/23/2008 Division of the duodenum with Janel-en-Y duodenojejunostomy - op note describes a duodenal switch procedure TUBAL LIGATION, FAMILY HISTORY Problem Relation Age of Onset Panic Disorder Mother Anxiety disorder Mother Bipolar disorder Mother Depression Mother Cervical Cancer Mother Cancer Mother ovarian cancer Coronary Artery Disease Father 53 Diabetes Father Hypertension Father Cancer Sister ovarian cancer Coronary Artery Disease Maternal Uncle 50's Cancer Maternal Grandmother ovarian cancer Osteoporosis Maternal Grandmother Cancer Paternal Grandmother ovarian cancer Diabetes Paternal Grandmother Social History Tobacco Use Smoking status: Former Packs/day: 0.50 Years: 1.00 Additional pack years: 0.00 Total pack years: 0.50 Types: Cigarettes Quit date: 11/10/2011 Years since quittin.4 Smokeless tobacco: Never Vaping Use Vaping Use: Never used Substance Use Topics Alcohol use: Not Currently Comment: rare glass of wine Drug use: Yes Types: Marijuana Comment: for anxiety and for sleep ALLERGIES Allergen Reactions Toradol [Ketorolac] Hives, Shortness of Breath Zofran [Ondansetron* Hives, Shortness of Breath Seasonal Allergies Itching, Other: See Comments Stuffy nose Current Outpatient Medications Medication Sig Phentermine HCl 37.5 mg tablet Take 37.5 mg by mouth. methocarbamol (ROBAXIN) 750 mg tablet Take 750 mg by mouth three times a day as needed (muscle spasm). promethazine (PHENERGAN) 25 mg suppository 1 Suppository by RECTAL route every 6 hours as needed. oxyCODONE-acetaminophen (PERCOCET) 5-325 mg tablet Take 1-2 tablets by mouth every 4 hours as needed for pain for up to 7 days. No current facility-administered medications for this visit. Objective 05/04/24 0903 BP: 114/71 Pulse: 90 Resp: 18 Temp: 36.5 C (97.7 F) TempSrc: Temporal SpO2: 99% Weight: 234 lb 3.2 oz (106.2 kg) Height: 5' 5 (1.651 m) Body mass index is 38.97 kg/m . Physical Exam Vitals reviewed. HENT: Head: Normocephalic and atraumatic. Nose: Nose normal. Mouth/Throat: Mouth: Mucous membranes are moist. Pharynx: Oropharynx is clear. Eyes: Conjunctiva/sclera: Conjunctivae normal. Comments: Wearing glasses Cardiovascular: Rate and Rhythm: Normal rate and regular rhythm. Heart sounds: Normal heart sounds. Pulmonary: Effort: Pulmonary effort is normal. Breath sounds: Normal breath sounds. Abdominal: General: There is distension. Tenderness: There is abdominal tenderness. There is guarding. Hernia: A hernia (large hernia, protruding. Exquisitely painful on assessment) is present. Musculoskeletal: General: Normal range of motion. Cervical back: Normal range of motion and neck supple. Skin: General: Skin is warm and dry. Neurological: General: No focal deficit present. Mental Status: She is alert. Motor: No weakness. Gait: Gait normal. Psychiatric: Attention and Perception: Attention normal. Mood and Affect: Mood is anxious. Affect is tearful (intermittently). Speech: Speech normal. Behavior: Behavior normal. Thought Content: Thought content normal. Cognition and Memory: Cognition and memory normal. Judgment: Judgment normal. Results for orders placed or performed in visit on 03/19/23 PT ED PATIENT INFORMATION Result Value Ref Range Finished Metal Repairer Provider GRANADO your patient MEL WALL started their Sofia program on 2023-03-19 but has NOT completed their Sofia program, time has . Sofia program: PATIENT SAFETY AND FALL PREVENTION Plan and Recommendations: ASSESSMENT/PLAN: 1. Abdominal wall hernia - ICD9: 553.20, ICD10: K43.9 (primary diagnosis) - CONSULT TO GASTROENTEROLOGY - will send a message to GI to inform and request assistance with scheduling, as well as any guidance they may have in the interim. - OXYCODONE-ACETAMINOPHEN 5 MG-325 MG TABLET 2. Generalized abdominal pain - ICD9: 789.07, ICD10: R10.84 - Referral to Gastroenterology - OXYCODONE-ACETAMINOPHEN 5 MG-325 MG TABLET 3. Situational anxiety - ICD9: 300.09, ICD10: F41.8 - will hold off on medications at this time. Anxiety is currently directly correlated to hernia and the way it is interrupting day to day functioning. Discussed the above with the patient using shared decision-making. The patient is in agreement with the diagnostic and treatment plans. Future Considerations: - will communicate with GI; asked if could see soon and if not, management he recommends for hernia and blood noted in stool in the interim. - if symptoms worsen or Mel is otherwise concerned, she should present to the ED. Return in about 1 year (around 05/04/2025), or if symptoms worsen or fail to improve, for annual wellness. Provider: Nanci Diaz APRN-[facility] [phone] May 04, 2024 documented in this encounter [facility] 04-26-2024 Plan of care note Problem: Pain Goal: My pain/discomfort is manageable 04/26/2024 1328 by Regis Mendez RN Outcome: Adequate for Discharge 04/26/2024 1248 by Regis Mendez RN Outcome: Progressing Problem: Pain Goal: My pain/discomfort is manageable 04/26/2024 1328 by Regis Mendez RN Outcome: Adequate for Discharge 04/26/2024 1248 by Regis Mendez RN Outcome: Progressing The patient is The patient's goals for the shift include to get some rest The clinical goals for the shift include to be pain free Over the shift, the patient did not make progress toward the following goals. Barriers to progression include . Recommendations to address these barriers include . [facility] 04-26-2024 Miscellaneous Notes Problem: Pain Goal: My pain/discomfort is manageable 04/26/2024 1328 by Regis Mendez RN Outcome: Adequate for Discharge 04/26/2024 1248 by Regis Mendez RN Outcome: Progressing Problem: Pain Goal: My pain/discomfort is manageable 04/26/2024 1328 by Regis Mendez RN Outcome: Adequate for Discharge 04/26/2024 1248 by Regis Mendez RN Outcome: Progressing The patient is The patient's goals for the shift include to get some rest The clinical goals for the shift include to be pain free Over the shift, the patient did not make progress toward the following goals. Barriers to progression include . Recommendations to address these barriers include . Problem: Pain Goal: My pain/discomfort is manageable Outcome: Progressing The patient is The patient's goals for the shift include to get some rest The clinical goals for the shift include to be pain free Over the shift, the patient did not make progress toward the following goals. Barriers to progression include . Recommendations to address these barriers include Problem: Pain Goal: My pain/discomfort is manageable Outcome: Progressing . Pt to be discharged to home today. Spoke with pt to verify if she would need assistance with discharge transport. Pt states she does have a ride home. She denies any needs from tcc. Problem: Pain Goal: My pain/discomfort is manageable Outcome: Progressing Problem: Safety Goal: Patient will be injury free during hospitalization Outcome: Progressing Problem: Safety Goal: I will remain free of falls Outcome: Progressing Problem: Daily Care Goal: Daily care needs are met Outcome: Progressing Care Managment Initial Assessment Date: 04/25/2024 Patient Name: Mel Wall : 1985 Patient Information Source of Information: Patient Cognition/Language: WFL - Within Functional Limits Permission given to speak with patient loan representative/caregiver as indicated: Confirmation of Payer with patient/family: Yes Payer Name: [facility] Medicaid : No Confirmation of Primary Care Physician: No PCP Primary Caregiver: Self If assistance needed, confirmed caregiver ready, willing and able to care for patient at discharge: Confirmed with: Living Arrangements Current Residence: Apartment Number of Floors 1 Number of Entry Steps: 5 or more Bed/Bath Levels: Both first floor Facility: Facility Name: Plan to Return: Lives with: Alone Support Systems: Spouse/significant other, Family members, Friends/neighbors Activities of Daily Living Ambulation: Independent Bathing/Dressing: Independent Elimination/Continence/Toileting: Independent Feeding: Independent Who Assists with Activities of Daily Living: Instrumental Activities of Daily Living Prescription Coverage: Yes Pharmacy Used: [facility] [address], [place] Medication Management: Independent Transportation/Shopping: Independent Transportation Mode: Car Needs Assistance with Transportation at Discharge: Yes Meal Preparation: Independent Laundry/Cleaning: Independent Finances/Bill Paying: Independent Communication: Independent Types of Care Services/Equipment Utilized Care Services: Dialysis Type: Durable Medical Equipment: DME Provider: None Patient's Goal/Discharge Plan Patient expects to be discharged to: home Discharge Planning Actions: Continue to follow Patient's Choice Rights and [employer] and Collaborative Relationships Disclosed as Indicated for Post-Acute Care: Interdisciplinary Team Engagement: Social Work Referral for: Additional Information: 38 yo female admitted to with large ventral hernia, abd pain and bowel obstruction .Pt has significant past medical history of bile reflux gastritis, bipolar, and depression . Pt was here just last week for same. She continues to refuse placement of NGT. She is NPO. Went for a SBFT today. Met with pt at bedside; explained role of tcc. Pt lives in apt alone. She is independent adls. She uses no dme. Pt states she may need assistance with transportation at discharge. WILBUR Awan made aware. Tcc will continue to follow for any needs. Radha Romeo RN Problem: Pain Goal: My pain/discomfort is manageable 04/24/2024 1355 by Regis Mendez RN Outcome: Progressing 04/24/2024 0935 by Regis Mendez RN Outcome: Progressing The patient is The patient's goals for the shift include to get some rest The clinical goals for the shift include to be pain free Over the shift, the patient did not make progress toward the following goals. Barriers to progression include . Recommendations to address these barriers include . Problem: Pain Goal: My pain/discomfort is manageable Outcome: Progressing Problem: Pain Goal: My pain/discomfort is manageable Outcome: Progressing The patient is The patient's goals for the shift include to get some rest The clinical goals for the shift include to be pain free Over the shift, the patient did not make progress toward the following goals. Barriers to progression include . Recommendations to address these barriers include . documented in this encounter [facility] 04-26-2024 Plan of care note Problem: Pain Goal: My pain/discomfort is manageable Outcome: Progressing The patient is The patient's goals for the shift include to get some rest The clinical goals for the shift include to be pain free Over the shift, the patient did not make progress toward the following goals. Barriers to progression include . Recommendations to address these barriers include Problem: Pain Goal: My pain/discomfort is manageable Outcome: Progressing . [facility] 04-26-2024 Note Formatting of this n ote might be different from the original. Pt to be discharged to home today. Spoke with pt to verify if she would need assistance with discharge transport. Pt states she does have a ride home. She denies any needs from tcc. [facility] 04-26-2024 Note Formatting of this n ote might be different from the original. Pt to be discharged to home today. Spoke with pt to verify if she would need assistance with discharge transport. Pt states she does have a ride home. She denies any needs from tcc. [facility] 04-26-2024 History of Present illness Narrative Nutrition rescreen completed. Chart reviewed. Patient to be monitored and followed by the diet plasma processing technician. General surgery interval update Paged by RN for poorly controlled abdominal pain. To bedside to assess. On arrival, patient is resting comfortably in bed in no acute distress. Patient feels pain control would be improved on returning to as needed analgesics at doses ordered on prior admission. Denies nausea or vomiting. Received Dulcolax suppository earlier today, still without BM or flatus. On exam, abdomen is soft, moderately tender over the large soft ventral hernia. No overlying skin changes. Overall, exam stable from morning rounds. - Agree okay to increase as needed Dilaudid pain panel as on previous admission, add scheduled IV Robaxin. Continue IV Ofirmev. - Will continue daily Dulcolax suppositories, patient is open to possible soap suds enema tomorrow. - Continue serial abdominal exams Lelo Oquendo MD PGY-3, General Surgery Pager# [phone] 04/24/2024 5:08 PM documented in this encounter [facility] 04-26-2024 Hospital Discharge instructions Scot Casanova MD - 04/26/2024 8:01 AM EDT Please use miralax/suppositories/other over the counter meds to maintain regular bowel movements. Please call the office (or call 911 if this is an emergency) if you are having significant worsening of pain, nausea, vomiting, unable to pass gas or stool. Scot Casanova MD - 04/26/2024 8:03 AM EDT Images from the original note were not included. Continuity of Care Form Patient Name: Mel Wall : 1985 Admit date: 04/24/2024 Discharge date: Code Status Order: Full Code Advance Directives: N Admitting Physician: Tiffanie Forrest MD PCP: [facility] (Inactive) Discharging Nurse: Discharging Hospital Unit/Room#: [id number]/[id number] A Discharging Unit Phone Number: Emergency Contact: Extended Emergency Contact Information Primary Emergency Contact: nilton loredo Mobile Relation: Significant Other Past Surgical History: Past Surgical History: Procedure Laterality Date APPENDECTOMY BILIOPANCREATIC DIVERSION 10/23/2008 Sherie @ [facility] [place]; janel-en-y duodenojejunostomy for bile reflux CHOLECYSTECTOMY 02/2007 lap COLONOSCOPY N/A 11/29/2023 [facility]; repeat in 11/2033 EXPLORATORY LAPAROTOMY 06/10/2019 Veronica @ [facility]; ex lap, [facility] INCISION AND DRAINAGE OF WOUND 08/09/2013 [place]; I&D of surgical incision of LLQ INCISIONAL HERNIA REPAIR 10/20/2017 [place]; open primary repair INCISIONAL HERNIA REPAIR 07/12/2018 [facility]; open w/ mesh INCISIONAL HERNIA REPAIR 09/26/2018 [place]; lap w/ mesh INCISIONAL HERNIA REPAIR 03/11/2020 ; repair w/ mesh excision, mesh replacement, WAI INCISIONAL HERNIA REPAIR 07/19/2015 [facility] [place]; open repair w/ mesh SOFT TISSUE MASS EXCISION 08/02/2013 [place]; STM excision of LLQ TONSILLECTOMY Immunization History: There is no immunization history on file for this patient. Active Problems: Medical Problems Problem List * (Principal) Ventral hernia without obstruction or gangrene Morbid obesity, unspecified obesity type (HCC) Recurrent incisional hernia Generalized abdominal pain Isolation/Infection: No active isolations No active infections Nurse Assessment: Last Vital Signs: BP 124/78 (BP Location: Right arm, Patient Position: Sitting) Pulse 66 Temp 36.1 C (97 F) (Temporal) Resp 20 Ht 5' 5 (1.651 m) Wt 243 lb (110 kg) LMP 04/03/2024 (Approximate) SpO2 100% BMI 40.44 kg/m Last documented pain score (0-10 scale): Last Weight: Wt Readings from Last 1 Encounters: 04/24/24 243 lb (110 kg) Mental Status: {IRIS Patient Mental Status:01667} IV Access: {IRIS IV Access:42486} Nursing Mobility/ADLs: Walking {DAKSHA ADL:::Independent} Transfer {DAKSHA ADL:::Independent} Bathing {DAKSHA ADL:::Independent} Dressing {DAKSHA ADL:23386::Independent} Toileting {DAKSHA ADL:98851::Independent} Feeding {DAKSHA ADL:87835::Independent} Nitriles Lab Technician {DAKSHA ADL:68041::Independent} Med Delivery {yes/no:91307} Wound Care Documentation and Therapy: Elimination: Continence: Bowel: {yes/no:45784} Bladder: {yes/no:67701} Urinary Catheter: {IRIS Urinary Catheter:38501} Colostomy/Ileostomy/Ileal Conduit: {YES / NO:} Date of Last BM: Intake/Output Summary (Last 24 hours) at 04/26/2024 0803 Last data filed at 04/26/2024 0655 Gross per 24 hour Intake 1300 ml Output -- Net 1300 ml I/O last 3 completed shifts: In: 3693.3 (33.5 mL/kg) [I.V.:3593.3 (32.6 mL/kg); IV Piggyback:100] Out: - (0 mL/kg) Weight: 110.2 kg Safety Concerns: {IRIS Safety Concerns:26675} Impairments/Disabilities: {IRIS Impairments/Disabilities:14291} Nutrition Therapy: Current Nutrition Therapy: {IRIS Diet List:18723} Routes of Feeding: {routes of feedin} Liquids: {liquid consistency:52146} Daily Fluid Restriction: {daily fluid restriction:94255} Last Modified Barium Swallow with Video (Video Swallowing Test): {done not done:72014} Treatments at the Time of Hospital Discharge: Respiratory Treatments: Oxygen Therapy: {Therapy; copd oxygen:24837} Ventilator: {IRIS Ventilator:88201} Rehab Therapies: {GEN THERAPY DISCIPLINE SCAL:1668062} Weight Bearing Status/Restrictions: {POD WEIGHT BEARIN} Other Medical Equipment (for information only, NOT a DME order): {Assistive Devices DME:13545} Other Treatments: Patient's personal belongings (please select all that are sent with patient): {IRIS Patient Belongings:34934} RN SIGNATURE: {E-signature:52717} CASE MANAGEMENT/SOCIAL WORK SECTION Inpatient Status Date: Discharging to Facility/ Agency Name: Address: Phone: Fax: Dialysis Facility (if applicable) Name: Address: Dialysis Schedule: Phone: Fax: Youth Minister/Livestock Trucker signature: {E-signature:53951} PHYSICIAN SECTION Name: Mel Wall Prognosis: {Rehab Prognosis:05798} Condition at Discharge: {Patient Condition:46249} Rehab Potential (if transferring to Rehab): {Rehab Prognosis:85367} Recommended Labs or Other Treatments After Discharge: The individual is being admitted to a nursing facility directly from an [facility] or a unit of a [facility] that is not operated by or licensed by [facility] under section 5119.14 or 5160-3-15.1 5 The individual requires the level of services provided by a nursing facility for the condition for which he or she was treated in the hospital and, Physician Certification: I certify the above information and transfer of Mel Wall is necessary for the continuing treatment of the diagnosis listed and that she requires {IRIS Level of Care:76003} for {greater less than:32640} 30 days. Update Admission H&P: {IRIS Changes in H&P:03035} PHYSICIAN SIGNATURE: {E-signature:51893} documented in this encounter [facility] 04-26-2024 Plan of care note Problem: Pain Goal: My pain/discomfort is manageable Outcome: Progressing Problem: Safety Goal: Patient will be injury free during hospitalization Outcome: Progressing Problem: Safety Goal: I will remain free of falls Outcome: Progressing Problem: Daily Care Goal: Daily care needs are met Outcome: Progressing [facility] 04-25-2024 Note Formatting of this n ote might be different from the original. Care Managment Initial Assessment Date: 04/25/2024 Patient Name: eMl Wall : 1985 Patient Information Source of Information: Patient Cognition/Language: WFL - Within Functional Limits Permission given to speak with patient loan representative/caregiver as indicated: Confirmation of Payer with patient/family: Yes Payer Name: [facility] Medicaid [place]: No Confirmation of Primary Care Physician: No PCP Primary Caregiver: Self If assistance needed, confirmed caregiver ready, willing and able to care for patient at discharge: Confirmed with: Living Arrangements Current Residence: Apartment Number of Floors 1 Number of Entry Steps: 5 or more Bed/Bath Levels: Both first floor Facility: Facility Name: Plan to Return: Lives with: Alone Support Systems: Spouse/significant other, Family members, Friends/neighbors Activities of Daily Living Ambulation: Independent Bathing/Dressing: Independent Elimination/Continence/Toileting: Independent Feeding: Independent Who Assists with Activities of Daily Living: Instrumental Activities of Daily Living Prescription Coverage: Yes Pharmacy Used: [facility], [address], [place] Medication Management: Independent Transportation/Shopping: Independent Transportation Mode: Car Needs Assistance with Transportation at Discharge: Yes Meal Preparation: Independent Laundry/Cleaning: Independent Finances/Bill Paying: Independent Communication: Independent Types of Care Services/Equipment Utilized Care Services: Dialysis Type: Durable Medical Equipment: DME Provider: None Patient's Goal/Discharge Plan Patient expects to be discharged to: home Discharge Planning Actions: Continue to follow Patient's Choice Rights and [employer] and Collaborative Relationships Disclosed as Indicated for Post-Acute Care: Interdisciplinary Team Engagement: Social Work Referral for: Additional Information: 38 yo female admitted to with large ventral hernia, abd pain and bowel obstruction .Pt has significant past medical history of bile reflux gastritis, bipolar, and depression . Pt was here just last week for same. She continues to refuse placement of NGT. She is NPO. Went for a SBFT today. Met with pt at bedside; explained role of tcc. Pt lives in apt alone. She is independent adls. She uses no dme. Pt states she may need assistance with transportation at discharge. WILBUR Awan made aware. Tcc will continue to follow for any needs. Radha Romeo RN [facility] 04-25-2024 Note Formatting of this n ote might be different from the original. Care Managment Initial Assessment Date: 04/25/2024 Patient Name: Mel Wall : 1985 Patient Information Source of Information: Patient Cognition/Language: WFL - Within Functional Limits Permission given to speak with patient loan representative/caregiver as indicated: Confirmation of Payer with patient/family: Yes Payer Name: [facility] Medicaid : No Confirmation of Primary Care Physician: No PCP Primary Caregiver: Self If assistance needed, confirmed caregiver ready, willing and able to care for patient at discharge: Confirmed with: Living Arrangements Current Residence: Apartment Number of Floors 1 Number of Entry Steps: 5 or more Bed/Bath Levels: Both first floor Facility: Facility Name: Plan to Return: Lives with: Alone Support Systems: Spouse/significant other, Family members, Friends/neighbors Activities of Daily Living Ambulation: Independent Bathing/Dressing: Independent Elimination/Continence/Toileting: Independent Feeding: Independent Who Assists with Activities of Daily Living: Instrumental Activities of Daily Living Prescription Coverage: Yes Pharmacy Used: [facility], [address], [place] Medication Management: Independent Transportation/Shopping: Independent Transportation Mode: Car Needs Assistance with Transportation at Discharge: Yes Meal Preparation: Independent Laundry/Cleaning: Independent Finances/Bill Paying: Independent Communication: Independent Types of Care Services/Equipment Utilized Care Services: Dialysis Type: Durable Medical Equipment: DME Provider: Tj Patient's Goal/Discharge Plan Patient expects to be discharged to: home Discharge Planning Actions: Continue to follow Patient's Choice Rights and [employer] and Collaborative Relationships Disclosed as Indicated for Post-Acute Care: Interdisciplinary Team Engagement: Social Work Referral for: Additional Information: 38 yo female admitted to with large ventral hernia, abd pain and bowel obstruction .Pt has significant past medical history of bile reflux gastritis, bipolar, and depression . Pt was here just last week for same. She continues to refuse placement of NGT. She is NPO. Went for a SBFT today. Met with pt at bedside; explained role of tcc. Pt lives in apt alone. She is independent adls. She uses no dme. Pt states she may need assistance with transportation at discharge. WILBUR Awan made aware. Tcc will continue to follow for any needs. Radha Romeo RN T [facility] 04-24-2024 Plan of care note Problem: Pain Goal: My pain/discomfort is manageable 04/24/2024 1355 by Regis Mendez RN Outcome: Progressing 04/24/2024 0935 by Regis Mendez RN Outcome: Progressing The patient is The patient's goals for the shift include to get some rest The clinical goals for the shift include to be pain free Over the shift, the patient did not make progress toward the following goals. Barriers to progression include . Recommendations to address these barriers include . [facility] 04-24-2024 Plan of care note Problem: Pain Goal: My pain/discomfort is manageable Outcome: Progressing Problem: Pain Goal: My pain/discomfort is manageable Outcome: Progressing The patient is The patient's goals for the shift include to get some rest The clinical goals for the shift include to be pain free Over the shift, the patient did not make progress toward the following goals. Barriers to progression include . Recommendations to address these barriers include . [facility] 04-24-2024 Emergency department Note Pt states she has spoke with surgery and they are holding off on NG tube at this time Sonya Hoyos RN 04/24/24 0810 [facility] 04-24-2024 Emergency department Note Pt states she has spoke with surgery and they are holding off on NG tube at this time Sonya Hoyos RN 04/24/24 0810 Patient wishes to defer NG tube insertion at this time. Tio Dawson RN 04/24/24 0643 Emergency Department Encounter [facility] EMERGENCY DEPT Patient: Mel Wall : 1985 Date of Evaluation: 04/24/2024 ED Provider: Ahmet Terrell DO Chief Complaint Chief Complaint Patient presents with Abdominal Pain Pt arrived via [place] EMT with c/o abd pain since 1899. Sts she has a hernia that is set for surgical repair as soon as she is able to lose 15 more lbs. Tonight pain started as a dull ache in the RLQ and has progressed to an 8/10 sharp, stabbing pain that caused her to vomit. Sts she took a phenergan suppository and ibuprofen. Pt also has a know bowel obstruction and has not passed any gas or had a bowel movement today REENA Wall is a 38 y.o. female who presents to the emergency department complaining of abdominal pain. Patient has history of ventral hernia. She has had bowel obstruction. She states that she has not had a bowel movement is not passing gas today. She has pain over her hernia. Tried rectal Phenergan with no improvement in symptoms. She has been vomiting. Denies fevers or chills. Additional history obtained from : n/a Barriers to obtaining history from patient: n/a ROS: Review of Systems completed as follows: (Bold = positive, Not bold = negative) GENERAL: fevers, chills, malaise ENT: runny nose, congestion, sore throat, ear pain NEURO: weakness, numbness of tingling, headache CARDIOVASCULAR: chest pain, syncope PULMONARY: shortness of breath, cough, wheezing GASTROINTESTINAL: nausea, vomiting, abdominal pain, diarrhea, constipation, MUSCULOSKELETAL: pain GENITAL/URINARY: dysuria, hematuria, increased urinary frequency, hesitancy, flank pain SKIN: rash, lesions, wound Past History Past Medical History: Diagnosis Date Anxiety Bile reflux gastritis Bipolar affective (HCC) Depression Morbid obesity, unspecified obesity type (HCC) Past Surgical History: Procedure Laterality Date APPENDECTOMY BILIOPANCREATIC DIVERSION 10/23/2008 Sherie @ [place]; janel-en-y duodenojejunostomy for bile reflux CHOLECYSTECTOMY 02/2007 lap COLONOSCOPY N/A 11/29/2023 [facility]; repeat in 11/2033 EXPLORATORY LAPAROTOMY 06/10/2019 Veronica @ [facility]; ex lap, [facility]AI INCISION AND DRAINAGE OF WOUND 08/09/2013 [facility]; I&D of surgical incision of LLQ INCISIONAL HERNIA REPAIR 10/20/2017 [facility]; open primary repair INCISIONAL HERNIA REPAIR 07/12/2018 [place]; open w/ mesh INCISIONAL HERNIA REPAIR 09/26/2018 [place]; lap w/ mesh INCISIONAL HERNIA REPAIR 03/11/2020 ; repair w/ mesh excision, mesh replacement, WAI INCISIONAL HERNIA REPAIR 07/19/2015 [facility]; open repair w/ mesh SOFT TISSUE MASS EXCISION 08/02/2013 [facility]; STM excision of LLQ TONSILLECTOMY Social History Socioeconomic History Marital status: Single Tobacco Use Smoking status: Former Types: Cigarettes Smokeless tobacco: Never Substance and Sexual Activity Alcohol use: Not Currently Drug use: Yes Frequency: 2.0 times per week Types: Marijuana Comment: edibles Sexual activity: Not Currently Social Determinants of Health Financial Resource Strain: Medium Risk (03/11/2023) Received from [facility] Overall Financial Resource Strain (CARDIA) Difficulty of Paying Living Expenses: Somewhat hard Food Insecurity: Food Insecurity Present (03/11/2023) Received from [facility] Hunger Vital Sign Worried About Running Out of Food in the Last Year: Sometimes true Ran Out of Food in the Last Year: Sometimes true Transportation Needs: No Transportation Needs (04/10/2024) PRAPARE - Transportation Lack of Transportation (Medical): No Lack of Transportation (Non-Medical): No Physical Activity: Insufficiently Active (08/05/2020) Received from [facility] Exercise Vital Sign Days of Exercise per Week: 4 days Minutes of Exercise per Session: 30 min Stress: Stress Concern Present (08/05/2020) Received from [facility] [place] [employer] - Occupational Stress Questionnaire Feeling of Stress : Rather much Social Connections: Unknown (08/05/2020) Received from [facility] Social Connection and Isolation Panel [NHANES] Frequency of Communication with Friends and Family: Three times a week Frequency of Social Gatherings with Friends and Family: Once a week Attends [employer]ism Services: More than 4 times per year Intimate Partner Violence: Not At Risk (04/10/2024) Humiliation, Afraid, Rape, and Kick questionnaire Fear of Current or Ex-Partner: No Emotionally Abused: No Physically Abused: No Sexually Abused: No Housing Stability: High Risk (04/10/2024) Housing Stability Vital Sign Unable to Pay for Housing in the Last Year: Yes Number of Times Moved in the Last Year: 1 Homeless in the Last Year: No I have reviewed the history above as provided by nursing notes. Medications/Allergies Previous Medications ACETAMINOPHEN (TYLENOL) 325 MG TABLET Take 650 mg by mouth every 6 hours as needed for mild pain (1-3), moderate pain (4-6), headaches or fever. ALBUTEROL 108 (90 BASE) MCG/ACT INHALER Inhale 2 puffs every 4 hours as needed for wheezing or shortness of breath. FLUOXETINE (PROZAC) 20 MG CAPSULE Take 20 mg by mouth in the morning. IBUPROFEN 800 MG TABLET Take 800 mg by mouth every 6 hours as needed. METFORMIN XR (GLUCOPHAGE-XR) 500 MG 24 HR TABLET Take 1 tablet (500 mg) by mouth with evening meal. PHENTERMINE (ADIPEX-P) 37.5 MG TABLET Take 1 tablet (37.5 mg) by mouth every morning (before breakfast). PHENTERMINE (ADIPEX-P) 37.5 MG TABLET Take 1 tablet (37.5 mg) by mouth every morning (before breakfast). PROMETHAZINE (PHENERGAN) 25 MG SUPPOSITORY Insert 1 suppository (25 mg) into the rectum every 6 hours as needed for vomiting. Allergies Allergen Reactions Ketorolac Hives and Shortness of breath Other reaction(s): Hives Ondansetron Shortness of breath and Hives Other reaction(s): Hives, Respiratory distress I have reviewed the history above as provided by nursing notes. Physical Exam ED Triage Vitals [04/24/24 0124] Temp Heart Rate Resp BP 36.9 C (98.4 F) 94 20 129/84 SpO2 Temp Source Heart Rate Source Patient Position 99 % Oral Monitor -- BP Location FiO2 (%) -- -- GENERAL: The patient appears nourished and normally developed. Vital signs as documented. EYES: PERRL. No scleral icterus or orbital trauma noted. HEENT: Mucous membranes moist. Nares patent without copious rhinorrhea. LUNGS: Lungs are clear to auscultation, without any respiratory distress. CARDIAC: Rhythm is regular. No murmur appreciated ABDOMEN: Large right-sided ventral hernia. It is soft to palpation, diffusely tender. It is nonreducible. No rebound, no guarding. EXTREMITIES: Non edematous, with no obvious deformities. SKIN: Good color, with no significant rashes. No pallor. NEURO: No obvious neurological deficits, normal sensation and strength bilaterally. Diagnostics Labs: Results for orders placed or performed during the hospital encounter of 07/16/24 CBC auto differential Result Value Ref Range Auto WBC 10.2 3.6 - 10.7 10*3/uL RBC 4.31 3.80 - 5.20 10*6/uL Hemoglobin 13.5 11.7 - 16.0 g/dL Hematocrit 40.2 35.0 - 47.0 % MCV 93.3 77.0 - 99.0 fL MCH 31.3 26.0 - 34.0 pg MCHC 33.6 30.5 - 36.0 % RDW 12.7 11.5 - 15.0 % Platelets 304 140 - 440 10*3/uL MPV 9.0 9.0 - 12.7 fL nRBC 0.0 0.0 - 2.0 /100 WBCs Neutrophils Relative 64.6 38.0 - 82.0 % Lymphocytes Relative 26.7 15.0 - 45.0 % Monocytes Relative 5.9 5.0 - 13.0 % Eosinophils Relative 2.1 0.0 - 6.0 % Basophils Relative 0.3 0.0 - 2.0 % Immature Grans % 0.4 0.0 - 2.0 % Neutrophils Absolute 6.6 1.8 - 7.5 10*3/uL Lymphocytes Absolute 2.7 1.0 - 4.3 10*3/uL Monocytes Absolute 0.6 0.0 - 0.9 10*3/uL Eosinophils Absolute 0.2 0.0 - 0.5 10*3/uL Basophils Absolute 0.0 0.0 - 0.2 10*3/uL Immature Grans Absolute 0.0 <0.1 10*3/uL Comprehensive metabolic panel Result Value Ref Range SODIUM 137 135 - 145 mmol/L POTASSIUM 3.4 (L) 3.5 - 5.1 mmol/L CHLORIDE 108 (H) 98 - 107 mmol/L CARBON DIOXIDE 21 (L) 22 - 30 mmol/L ANION GAP 9 3 - 13 mmol/L UREA NITROGEN 9 7 - 17 mg/dL CREATININE 0.64 0.52 - 1.04 mg/dL GLUCOSE 119 (H) 70 - 100 mg/dL CALCIUM 9.6 8.4 - 10.4 mg/dL AST (SGOT) 19 15 - 46 U/L ALT 20 0 - 34 U/L ALKALINE PHOSPHATASE 41 38 - 126 U/L ALBUMIN 4.4 3.5 - 5.0 g/dL BILIRUBIN, TOTAL 0.3 0.2 - 1.3 mg/dL TOTAL PROTEIN 7.2 6.3 - 8.2 g/dL eGFR >90.0 >60.0 mL/min/1.73m*2 Lipase Result Value Ref Range LIPASE 81 23 - 300 U/L hCG, urine, qualitative Result Value Ref Range HCG,URINE QUAL Negative Negative Radiographs: CT abdomen pelvis w contrast Final Result 1. Very large ventral hernia containing nondilated bowel loops including an anastomosis involving small bowel 2. Indeterminate small left renal lesions as previously described. These are not significantly changed since 09/13/2023 Report Dictated on Electronically Signed By: Jose Carlson MD Electronically Signed Date/Time: 04/24/2024 2:58 AM EDT EMERGENCY DEPARTMENT COURSE and DIFFERENTIAL DIAGNOSIS/MDM: Vitals: Vitals: 04/24/24 0124 04/24/24 0403 BP: 129/84 106/70 Pulse: 94 83 Resp: 20 20 Temp: 36.9 C (98.4 F) TempSrc: Oral SpO2: 99% 97% Weight: 110 kg (243 lb) Height: 1.651 m (5' 5) The patient presented with a chief complaint of abdominal pain, vomiting. Vital signs reviewed. Concern for bowel obstruction, incarcerated hernia, other intra-abdominal infections. Plan treat with IV fluids, IV morphine, IV Reglan due to Zofran allergy. Labs ordered. Labs reveal a grossly normal CBC and metabolic panel. CT abdomen pelvis was personally interpreted showing no evidence of bowel obstruction. Discussed with [facility] general surgery, Dr Boyd who suggested patient be sent to the emergency department for surgical evaluation. Diagnoses as of 04/24/24412 Ventral hernia without obstruction or gangrene External records reviewed: Reviewed admission records from 10/19/2023, 09/13/2023, 11/29/2023 patient was admitted for abdominal pain, known to have hernia, did not have evidence of bowel obstruction. Diagnostics interpreted by me: Personally interpreted CT scan as above Discussions with other clinicians: Discussed with general surgery ED Medications managed: Medications morphine injection 4 mg (4 mg IntraVENous Given 04/24/24 015) sodium chloride 0.9 % bolus 1,000 mL (0 mL IntraVENous Stopped 04/24/24 8035) metoclopramide (Reglan) injection 10 mg (10 mg IntraVENous Given 04/24/24 0152) HYDROmorphone (Dilaudid) injection 0.5 mg (0.5 mg IntraVENous Given 04/24/24 6683) haloperidol lactate (Haldol) injection 2 mg (2 mg IntraMUSCular Given 04/24/24 6817) Patients symptoms are consistent with sepsis, severe sepsis or septic shock (if yes, use .sepsiscoremeasure) - no Final Impression 1. Ventral hernia without obstruction or gangrene DISPOSITION transfer [facility] emergency department Comment: Please note this report has been produced using speech recognition software and may contain errors related to that system including errors in grammar, punctuation, and spelling, as well as words and phrases that may be inappropriate. If there are any questions or concerns please feel free to contact the dictating provider for clarification. Ahmet Terrell DO [employer] Ahmet Terrell DO 04/24/24 0413 Emergency Department Encounter [facility] EMERGENCY DEPT Patient: Mel Wall : 1985 Date of Evaluation: 04/24/2024 ED [facility]AN[facility] Provider: Larry Crook PA-C Patient seen independently within my scope of practice with an Emergency Medicine attending available for supervision. Chief Complaint Chief Complaint Patient presents with Abdominal Pain Pt arrived via [place] EMT with c/o abd pain since 1900. Sts she has a hernia that is set for surgical repair as soon as she is able to lose 15 more lbs. Tonight pain started as a dull ache in the RLQ and has progressed to an 8/10 sharp, stabbing pain that caused her to vomit. Sts she took a phenergan suppository and ibuprofen. Pt also has a know bowel obstruction and has not passed any gas or had a bowel movement today AFOGNAK I was wearing a N95, Surgical mask for the entirety of this encounter. Mel Wall is a 38 y.o. female who presents to the emergency department for abdominal pain. Patient has a ventral hernia. Patient was transferred here from [facility] for surgery evaluation. Abdominal pain started on Tuesday. Patient has been having nausea with vomiting. Limitations to history: None Outside historians: EMR Past History Past Medical History: Diagnosis Date Anxiety Bile reflux gastritis Bipolar affective (HCC) Depression Morbid obesity, unspecified obesity type (HCC) Past Surgical History: Procedure Laterality Date APPENDECTOMY BILIOPANCREATIC DIVERSION 10/23/2008 Sherie @ [facility]; janel-en-y duodenojejunostomy for bile reflux CHOLECYSTECTOMY 02/2007 lap COLONOSCOPY N/A 11/29/2023 [facility]; repeat in 11/2033 EXPLORATORY LAPAROTOMY 06/10/2019 Veronica @ [facility]; ex lap, [facility] INCISION AND DRAINAGE OF WOUND 08/09/2013 [place]; I&D of surgical incision of LLQ INCISIONAL HERNIA REPAIR 10/20/2017 [facility]; open primary repair INCISIONAL HERNIA REPAIR 07/12/2018 [place]; open w/ mesh INCISIONAL HERNIA REPAIR 09/26/2018 [facility]; lap w/ mesh INCISIONAL HERNIA REPAIR 03/11/2020 [facility]; repair w/ mesh excision, mesh replacement, [facility] INCISIONAL HERNIA REPAIR 07/19/2015 [facility]; open repair w/ mesh SOFT TISSUE MASS EXCISION 08/02/2013 [place]; STM excision of LLQ TONSILLECTOMY Social History Socioeconomic History Marital status: Single Tobacco Use Smoking status: Former Types: Cigarettes Smokeless tobacco: Never Substance and Sexual Activity Alcohol use: Not Currently Drug use: Yes Frequency: 2.0 times per week Types: Marijuana Comment: edibles Sexual activity: Not Currently Social Determinants of Health Financial Resource Strain: Medium Risk (03/11/2023) Received from [facility] Overall Financial Resource Strain (CARDIA) Difficulty of Paying Living Expenses: Somewhat hard Food Insecurity: Food Insecurity Present (03/11/2023) Received from [facility] Hunger Vital Sign Worried About Running Out of Food in the Last Year: Sometimes true Ran Out of Food in the Last Year: Sometimes true Transportation Needs: No Transportation Needs (04/10/2024) PRAPARE - Transportation Lack of Transportation (Medical): No Lack of Transportation (Non-Medical): No Physical Activity: Insufficiently Active (08/05/2020) Received from [facility] Exercise Vital Sign Days of Exercise per Week: 4 days Minutes of Exercise per Session: 30 min Stress: Stress Concern Present (08/05/2020) Received from [facility] [place] of Occupational Health - Occupational Stress Questionnaire Feeling of Stress : Rather much Social Connections: Unknown (08/05/2020) Received from [facility], [facility] Social Connection and Isolation Panel [NHANES] Frequency of Communication with Friends and Family: Three times a week Frequency of Social Gatherings with Friends and Family: Once a week Attends Adventism Services: More than 4 times per year Intimate Partner Violence: Not At Risk (04/10/2024) Humiliation, Afraid, Rape, and Kick questionnaire Fear of Current or Ex-Partner: No Emotionally Abused: No Physically Abused: No Sexually Abused: No Housing Stability: High Risk (04/10/2024) Housing Stability Vital Sign Unable to Pay for Housing in the Last Year: Yes Number of Times Moved in the Last Year: 1 Homeless in the Last Year: No Medications/Allergies Previous Medications ACETAMINOPHEN (TYLENOL) 325 MG TABLET Take 650 mg by mouth every 6 hours as needed for mild pain (1-3), moderate pain (4-6), headaches or fever. ALBUTEROL 108 (90 BASE) MCG/ACT INHALER Inhale 2 puffs every 4 hours as needed for wheezing or shortness of breath. FLUOXETINE (PROZAC) 20 MG CAPSULE Take 20 mg by mouth in the morning. IBUPROFEN 800 MG TABLET Take 800 mg by mouth every 6 hours as needed. METFORMIN XR (GLUCOPHAGE-XR) 500 MG 24 HR TABLET Take 1 tablet (500 mg) by mouth with evening meal. PHENTERMINE (ADIPEX-P) 37.5 MG TABLET Take 1 tablet (37.5 mg) by mouth every morning (before breakfast). PHENTERMINE (ADIPEX-P) 37.5 MG TABLET Take 1 tablet (37.5 mg) by mouth every morning (before breakfast). PROMETHAZINE (PHENERGAN) 25 MG SUPPOSITORY Insert 1 suppository (25 mg) into the rectum every 6 hours as needed for vomiting. Allergies Allergen Reactions Ketorolac Hives and Shortness of breath Other reaction(s): Hives Ondansetron Shortness of breath and Hives Other reaction(s): Hives, Respiratory distress Physical Exam BP 106/70 Pulse 83 Temp 36.9 C (98.4 F) (Oral) Resp 20 Ht 1.651 m (5' 5) Wt 110 kg (243 lb) LMP 04/03/2024 (Approximate) SpO2 97% BMI 40.44 kg/m Physical Exam GENERAL APPEARANCE: Awake and alert. Cooperative. HEENT: Normocephalic. Atraumatic. No trismus. NECK: Supple. Trachea midline. CARDIO: Normal rate. Radial pulses symmetrical and palpable LUNGS: Respirations unlabored. CTAB. ABDOMEN: Soft. Large ventral hernia. Diffuse abdominal tenderness to palpation. SKIN: Warm and dry. NEUROLOGICAL: No gross facial drooping. No obvious neurologic deficits. Moves all 4 extremities spontaneously. SCREENINGS D Labs: Results for orders placed or performed during the hospital encounter of 04/24/24 CBC auto differential Result Value Ref Range Auto WBC 10.2 3.6 - 10.7 10*3/uL RBC 4.31 3.80 - 5.20 10*6/uL Hemoglobin 13.5 11.7 - 16.0 g/dL Hematocrit 40.2 35.0 - 47.0 % MCV 93.3 77.0 - 99.0 fL MCH 31.3 26.0 - 34.0 pg MCHC 33.6 30.5 - 36.0 % RDW 12.7 11.5 - 15.0 % Platelets 304 140 - 440 10*3/uL MPV 9.0 9.0 - 12.7 fL nRBC 0.0 0.0 - 2.0 /100 WBCs Neutrophils Relative 64.6 38.0 - 82.0 % Lymphocytes Relative 26.7 15.0 - 45.0 % Monocytes Relative 5.9 5.0 - 13.0 % Eosinophils Relative 2.1 0.0 - 6.0 % Basophils Relative 0.3 0.0 - 2.0 % Immature Grans % 0.4 0.0 - 2.0 % Neutrophils Absolute 6.6 1.8 - 7.5 10*3/uL Lymphocytes Absolute 2.7 1.0 - 4.3 10*3/uL Monocytes Absolute 0.6 0.0 - 0.9 10*3/uL Eosinophils Absolute 0.2 0.0 - 0.5 10*3/uL Basophils Absolute 0.0 0.0 - 0.2 10*3/uL Immature Grans Absolute 0.0 <0.1 10*3/uL Comprehensive metabolic panel Result Value Ref Range SODIUM 137 135 - 145 mmol/L POTASSIUM 3.4 (L) 3.5 - 5.1 mmol/L CHLORIDE 108 (H) 98 - 107 mmol/L CARBON DIOXIDE 21 (L) 22 - 30 mmol/L ANION GAP 9 3 - 13 mmol/L UREA NITROGEN 9 7 - 17 mg/dL CREATININE 0.64 0.52 - 1.04 mg/dL GLUCOSE 119 (H) 70 - 100 mg/dL CALCIUM 9.6 8.4 - 10.4 mg/dL AST (SGOT) 19 15 - 46 U/L ALT 20 0 - 34 U/L ALKALINE PHOSPHATASE 41 38 - 126 U/L ALBUMIN 4.4 3.5 - 5.0 g/dL BILIRUBIN, TOTAL 0.3 0.2 - 1.3 mg/dL TOTAL PROTEIN 7.2 6.3 - 8.2 g/dL eGFR >90.0 >60.0 mL/min/1.73m*2 Lipase Result Value Ref Range LIPASE 81 23 - 300 U/L hCG, urine, qualitative Result Value Ref Range HCG,URINE QUAL Negative Negative Radiographs: CT abdomen pelvis w contrast Final Result 1. Very large ventral hernia containing nondilated bowel loops including an anastomosis involving small bowel 2. Indeterminate small left renal lesions as previously described. These are not significantly changed since 09/13/2023 Report Dictated on Electronically Signed By: Jose Carlson MD Electronically Signed Date/Time: 04/24/2024 2:58 AM EDT : EKG: All EKG's areinterpreted by the Emergency Department Physician in the absence of a smoking tobacco packing machine hand. see their note for interpretation of EKG. EMERGENCY DEPARTMENT COURSE and DIFFERENTIAL DIAGNOSIS/MDM: External Records Review: Reviewed Care Everywhere. Social Determinants of Health: none. Mel Wall is a 38 y.o. female who presented to the emergency department for abdominal pain and surgery evaluation. Patient was transferred here from [facility] for surgery evaluation of ventral hernia. Our workup consisted of ordering/reviewing CBC, CMP, lipase, hCG, CT abd/pelvis and showed no leukocytosis. CT ab/pelvis showed very large ventral hernia containing nondilated bowel loops including an anastomosis involving small bowel. Indeterminate small left renal lesions as previously described. These are not significantly changed since 09/13/2023. Will consult general surgery. General surgery evaluated patient and will admit patient to their service for further workup/management. Please see surgery note for details. Patient given additional IV Dilaudid and Phenergan. Final Diagnosis: 1. Ventral hernia without obstruction or gangrene Medications HYDROmorphone (Dilaudid) injection 0.5 mg (has no administration in time range) promethazine (Phenergan) injection 12.5 mg (has no administration in time range) enoxaparin (Lovenox) syringe 30 mg (has no administration in time range) lactated Ringer's (LR) infusion (has no administration in time range) acetaminophen (Ofirmev) IVPB 1,000 mg (has no administration in time range) HYDROmorphone (Dilaudid) injection 0.25 mg (has no administration in time range) Or HYDROmorphone (Dilaudid) injection 0.5 mg (has no administration in time range) promethazine (Phenergan) tablet 12.5 mg (has no administration in time range) Or promethazine (Phenergan) injection 12.5 mg (has no administration in time range) Or promethazine (Phenergan) suppository 12.5 mg (has no administration in time range) oxymetazoline (Afrin) 0.05 % nasal spray 2 spray (has no administration in time range) lidocaine (Uro-Jet) 2 % gel (has no administration in time range) morphine injection 4 mg (4 mg IntraVENous Given 04/24/24 015) sodium chloride 0.9 % bolus 1,000 mL (0 mL IntraVENous Stopped 04/24/24 0355) metoclopramide (Reglan) injection 10 mg (10 mg IntraVENous Given 04/24/24 0152) HYDROmorphone (Dilaudid) injection 0.5 mg (0.5 mg IntraVENous Given 04/24/24 0223) haloperidol lactate (Haldol) injection 2 mg (2 mg IntraMUSCular Given 04/24/24 0358) CONSULTS: None PROCEDURES: Unless otherwise noted below, none Procedures DISPOSITION/PLAN Admit 04/24/2024 06:21:08 AM PATIENT REFERRED TO: No follow-up provider specified. DISCHARGE MEDICATIONS: New Prescriptions No medications on file @[facility]([id number]:LAST:1)@ (Please note: Portions of this note were completed with a voice recognition program. Efforts were made to edit the dictations but occasionally words and phrases are mis-transcribed.) Form [id number] Larry Crook PA-C Acute [facility] Larry Crook PA-C 04/24/24 0629 documented in this encounter [facility] 04-24-2024 Emergency department Note Patient wishes to defer NG tube insertion at this time. Tio Dawson RN 04/24/2443 [facility] 04-24-2024 History and physical note NOTE: The initial surgical note was filed as a Consult Note Instead of an H&P. While the Consult note contains all pertinent information regarding this patient's care and initial presentation consistent with an H&P, (HPI, PMH, PSH, Medications, Allergies, SH, FMH, ROS, PE, Relevant imaging and labs, Assessment and Plan), for the interest of maintaining proper documentation for billing, an H&P is now filed here. Roman Laurent MD General Surgery Resident 04/24/24 6:21 AM This note may have been dictated using [employer] Medical Edition 2.6 and/or Quixby Voice Recognition Feature. The document was proofread; however, unrecognized voice recognition wood stock blank handler errors may be present. [facility] 04-24-2024 History and physical note NOTE: The initial surgical note was filed as a Consult Note Instead of an H&P. While the Consult note contains all pertinent information regarding this patient's care and initial presentation consistent with an H&P, (HPI, PMH, PSH, Medications, Allergies, SH, FMH, ROS, PE, Relevant imaging and labs, Assessment and Plan), for the interest of maintaining proper documentation for billing, an H&P is now filed here. Roman Laurent MD General Surgery Resident 04/24/24 6:21 AM This note may have been dictated using [employer] Medical Edition 2.6 and/or Quixby Voice Recognition Feature. The document was proofread; however, unrecognized voice recognition wood stock blank handler errors may be present. documented in this encounter [facility] 04-24-2024 Physician Emergency department Note Emergency Department Encounter [facility] EMERG[facility] DE[facility] Patient: Mel Wall : 1985 Date of Evaluation: 04/24/2024 ED Provider: Ahmet Terrell DO Chief Complaint Chief Complaint Patient presents with Abdominal Pain Pt arrived via [place] [facility] with c/o abd pain since 1900. Sts she has a hernia that is set for surgical repair as soon as she is able to lose 15 more lbs. Tonight pain started as a dull ache in the RLQ and has progressed to an 8/10 sharp, stabbing pain that caused her to vomit. Sts she took a phenergan suppository and ibuprofen. Pt also has a know bowel obstruction and has not passed any gas or had a bowel movement today REENA Wall is a 38 y.o. female who presents to the emergency department complaining of abdominal pain. Patient has history of ventral hernia. She has had bowel obstruction. She states that she has not had a bowel movement is not passing gas today. She has pain over her hernia. Tried rectal Phenergan with no improvement in symptoms. She has been vomiting. Denies fevers or chills. Additional history obtained from : n/a Barriers to obtaining history from patient: n/a ROS: Review of Systems completed as follows: (Bold = positive, Not bold = negative) GENERAL: fevers, chills, malaise ENT: runny nose, congestion, sore throat, ear pain NEURO: weakness, numbness of tingling, headache CARDIOVASCULAR: chest pain, syncope PULMONARY: shortness of breath, cough, wheezing GASTROINTESTINAL: nausea, vomiting, abdominal pain, diarrhea, constipation, MUSCULOSKELETAL: pain GENITAL/URINARY: dysuria, hematuria, increased urinary frequency, hesitancy, flank pain SKIN: rash, lesions, wound Past History Past Medical History: Diagnosis Date Anxiety Bile reflux gastritis Bipolar affective (HCC) Depression Morbid obesity, unspecified obesity type (HCC) Past Surgical History: Procedure Laterality Date APPENDECTOMY BILIOPANCREATIC DIVERSION 10/23/2008 Sherie @ [facility]; janel-en-y duodenojejunostomy for bile reflux CHOLECYSTECTOMY 02/2007 lap COLONOSCOPY N/A 11/29/2023 [facility]; repeat in 11/2033 EXPLORATORY LAPAROTOMY 06/10/2019 Veronica @ [facility]; ex lap, [facility] INCISION AND DRAINAGE OF WOUND 08/09/2013 [facility]; I&D of surgical incision of LLQ INCISIONAL HERNIA REPAIR 10/20/2017 [facility]; open primary repair INCISIONAL HERNIA REPAIR 07/12/2018 [facility]; open w/ mesh INCISIONAL HERNIA REPAIR 09/26/2018 [facility]; lap w/ mesh INCISIONAL HERNIA REPAIR 03/11/2020 [facility]; repair w/ mesh excision, mesh replacement, [facility] INCISIONAL HERNIA REPAIR 07/19/2015 [facility]; open repair w/ mesh SOFT TISSUE MASS EXCISION 08/02/2013 [facility]; STM excision of LLQ TONSILLECTOMY Social History Socioeconomic History Marital status: Single Tobacco Use Smoking status: Former Types: Cigarettes Smokeless tobacco: Never Substance and Sexual Activity Alcohol use: Not Currently Drug use: Yes Frequency: 2.0 times per week Types: Marijuana Comment: edibles Sexual activity: Not Currently Social Determinants of Health Financial Resource Strain: Medium Risk (03/11/2023) Received from [facility] Overall Financial Resource Strain (CARDIA) Difficulty of Paying Living Expenses: Somewhat hard Food Insecurity: Food Insecurity Present (03/11/2023) Received from [facility] Hunger Vital Sign Worried About Running Out of Food in the Last Year: Sometimes true Ran Out of Food in the Last Year: Sometimes true Transportation Needs: No Transportation Needs (04/10/2024) PRAPARE - Transportation Lack of Transportation (Medical): No Lack of Transportation (Non-Medical): No Physical Activity: Insufficiently Active (08/05/2020) Received from [facility] Exercise Vital Sign Days of Exercise per Week: 4 days Minutes of Exercise per Session: 30 min Stress: Stress Concern Present (08/05/2020) Received from [facility] [place] of Occupational Health - Occupational Stress Questionnaire Feeling of Stress : Rather much Social Connections: Unknown (08/05/2020) Received from [facility] Social Connection and Isolation Panel [NHANES] Frequency of Communication with Friends and Family: Three times a week Frequency of Social Gatherings with Friends and Family: Once a week Attends Adventism Services: More than 4 times per year Intimate Partner Violence: Not At Risk (04/10/2024) Humiliation, Afraid, Rape, and Kick questionnaire Fear of Current or Ex-Partner: No Emotionally Abused: No Physically Abused: No Sexually Abused: No Housing Stability: High Risk (04/10/2024) Housing Stability Vital Sign Unable to Pay for Housing in the Last Year: Yes Number of Times Moved in the Last Year: 1 Homeless in the Last Year: No I have reviewed the history above as provided by nursing notes. Medications/Allergies Previous Medications ACETAMINOPHEN (TYLENOL) 325 MG TABLET Take 650 mg by mouth every 6 hours as needed for mild pain (1-3), moderate pain (4-6), headaches or fever. ALBUTEROL 108 (90 BASE) MCG/ACT INHALER Inhale 2 puffs every 4 hours as needed for wheezing or shortness of breath. FLUOXETINE (PROZAC) 20 MG CAPSULE Take 20 mg by mouth in the morning. IBUPROFEN 800 MG TABLET Take 800 mg by mouth every 6 hours as needed. METFORMIN XR (GLUCOPHAGE-XR) 500 MG 24 HR TABLET Take 1 tablet (500 mg) by mouth with evening meal. PHENTERMINE (ADIPEX-P) 37.5 MG TABLET Take 1 tablet (37.5 mg) by mouth every morning (before breakfast). PHENTERMINE (ADIPEX-P) 37.5 MG TABLET Take 1 tablet (37.5 mg) by mouth every morning (before breakfast). PROMETHAZINE (PHENERGAN) 25 MG SUPPOSITORY Insert 1 suppository (25 mg) into the rectum every 6 hours as needed for vomiting. Allergies Allergen Reactions Ketorolac Hives and Shortness of breath Other reaction(s): Hives Ondansetron Shortness of breath and Hives Other reaction(s): Hives, Respiratory distress I have reviewed the history above as provided by nursing notes. Physical Exam ED Triage Vitals [04/24/24 0124] Temp Heart Rate Resp BP 36.9 C (98.4 F) 94 20 129/84 SpO2 Temp Source Heart Rate Source Patient Position 99 % Oral Monitor -- BP Location FiO2 (%) -- -- GENERAL: The patient appears nourished and normally developed. Vital signs as documented. EYES: PERRL. No scleral icterus or orbital trauma noted. HEENT: Mucous membranes moist. Nares patent without copious rhinorrhea. LUNGS: Lungs are clear to auscultation, without any respiratory distress. CARDIAC: Rhythm is regular. No murmur appreciated ABDOMEN: Large right-sided ventral hernia. It is soft to palpation, diffusely tender. It is nonreducible. No rebound, no guarding. EXTREMITIES: Non edematous, with no obvious deformities. SKIN: Good color, with no significant rashes. No pallor. NEURO: No obvious neurological deficits, normal sensation and strength bilaterally. Diagnostics Labs: Results for orders placed or performed during the hospital encounter of 04/24/24 CBC auto differential Result Value Ref Range Auto WBC 10.2 3.6 - 10.7 10*3/uL RBC 4.31 3.80 - 5.20 10*6/uL Hemoglobin 13.5 11.7 - 16.0 g/dL Hematocrit 40.2 35.0 - 47.0 % MCV 93.3 77.0 - 99.0 fL MCH 31.3 26.0 - 34.0 pg MCHC 33.6 30.5 - 36.0 % RDW 12.7 11.5 - 15.0 % Platelets 304 140 - 440 10*3/uL MPV 9.0 9.0 - 12.7 fL nRBC 0.0 0.0 - 2.0 /100 WBCs Neutrophils Relative 64.6 38.0 - 82.0 % Lymphocytes Relative 26.7 15.0 - 45.0 % Monocytes Relative 5.9 5.0 - 13.0 % Eosinophils Relative 2.1 0.0 - 6.0 % Basophils Relative 0.3 0.0 - 2.0 % Immature Grans % 0.4 0.0 - 2.0 % Neutrophils Absolute 6.6 1.8 - 7.5 10*3/uL Lymphocytes Absolute 2.7 1.0 - 4.3 10*3/uL Monocytes Absolute 0.6 0.0 - 0.9 10*3/uL Eosinophils Absolute 0.2 0.0 - 0.5 10*3/uL Basophils Absolute 0.0 0.0 - 0.2 10*3/uL Immature Grans Absolute 0.0 <0.1 10*3/uL Comprehensive metabolic panel Result Value Ref Range SODIUM 137 135 - 145 mmol/L POTASSIUM 3.4 (L) 3.5 - 5.1 mmol/L CHLORIDE 108 (H) 98 - 107 mmol/L CARBON DIOXIDE 21 (L) 22 - 30 mmol/L ANION GAP 9 3 - 13 mmol/L UREA NITROGEN 9 7 - 17 mg/dL CREATININE 0.64 0.52 - 1.04 mg/dL GLUCOSE 119 (H) 70 - 100 mg/dL CALCIUM 9.6 8.4 - 10.4 mg/dL AST (SGOT) 19 15 - 46 U/L ALT 20 0 - 34 U/L ALKALINE PHOSPHATASE 41 38 - 126 U/L ALBUMIN 4.4 3.5 - 5.0 g/dL BILIRUBIN, TOTAL 0.3 0.2 - 1.3 mg/dL TOTAL PROTEIN 7.2 6.3 - 8.2 g/dL eGFR >90.0 >60.0 mL/min/1.73m*2 Lipase Result Value Ref Range LIPASE 81 23 - 300 U/L hCG, urine, qualitative Result Value Ref Range HCG,URINE QUAL Negative Negative Radiographs: CT abdomen pelvis w contrast Final Result 1. Very large ventral hernia containing nondilated bowel loops including an anastomosis involving small bowel 2. Indeterminate small left renal lesions as previously described. These are not significantly changed since 09/13/2023 Report Dictated on Electronically Signed By: Jose Carlson MD Electronically Signed Date/Time: 04/24/2024 2:58 AM EDT EMERGENCY DEPARTMENT COURSE and DIFFERENTIAL DIAGNOSIS/MDM: Vitals: Vitals: 04/24/24 0124 04/24/24 0403 BP: 129/84 106/70 Pulse: 94 83 Resp: 20 20 Temp: 36.9 C (98.4 F) TempSrc: Oral SpO2: 99% 97% Weight: 110 kg (243 lb) Height: 1.651 m (5' 5) The patient presented with a chief complaint of abdominal pain, vomiting. Vital signs reviewed. Concern for bowel obstruction, incarcerated hernia, other intra-abdominal infections. Plan treat with IV fluids, IV morphine, IV Reglan due to Zofran allergy. Labs ordered. Labs reveal a grossly normal CBC and metabolic panel. CT abdomen pelvis was personally interpreted showing no evidence of bowel obstruction. Discussed with [facility] general surgery, Dr Boyd who suggested patient be sent to the emergency department for surgical evaluation. Diagnoses as of 04/24/24412 Ventral hernia without obstruction or gangrene External records reviewed: Reviewed admission records from 10/19/2023, 09/13/2023, 11/29/2023 patient was admitted for abdominal pain, known to have hernia, did not have evidence of bowel obstruction. Diagnostics interpreted by me: Personally interpreted CT scan as above Discussions with other clinicians: Discussed with general surgery ED Medications managed: Medications morphine injection 4 mg (4 mg IntraVENous Given 04/24/24 0152) sodium chloride 0.9 % bolus 1,000 mL (0 mL IntraVENous Stopped 04/24/24 0355) metoclopramide (Reglan) injection 10 mg (10 mg IntraVENous Given 04/24/24 015) HYDROmorphone (Dilaudid) injection 0.5 mg (0.5 mg IntraVENous Given 04/24/24 0223) haloperidol lactate (Haldol) injection 2 mg (2 mg IntraMUSCular Given 04/24/24 0358) Patients symptoms are consistent with sepsis, severe sepsis or septic shock (if yes, use .sepsiscoremeasure) - no Final Impression 1. Ventral hernia without obstruction or gangrene DISPOSITION transfer [facility] emergency department Comment: Please note this report has been produced using speech recognition software and may contain errors related to that system including errors in grammar, punctuation, and spelling, as well as words and phrases that may be inappropriate. If there are any questions or concerns please feel free to contact the dictating provider for clarification. Ahmet Terrell DO [employer] Ahmet Terrell DO 04/24/24 0413 [facility] 04-24-2024 Physician Emergency department Note Emergency Department Encounter [facility] EMERGENCY DEPT Patient: Mel Wall : 1985 Date of Evaluation: 04/24/2024 ED [facility]AN[facility] Provider: Larry Crook PA-C Patient seen independently within my scope of practice with an Emergency Medicine attending available for supervision. Chief Complaint Chief Complaint Patient presents with Abdominal Pain Pt arrived via [place] [facility] with c/o abd pain since 1900. Sts she has a hernia that is set for surgical repair as soon as she is able to lose 15 more lbs. Tonight pain started as a dull ache in the RLQ and has progressed to an 8/10 sharp, stabbing pain that caused her to vomit. Sts she took a phenergan suppository and ibuprofen. Pt also has a know bowel obstruction and has not passed any gas or had a bowel movement today AFOGNAK I was wearing a N95, Surgical mask for the entirety of this encounter. Mel Wall is a 38 y.o. female who presents to the emergency department for abdominal pain. Patient has a ventral hernia. Patient was transferred here from [place] ED for surgery evaluation. Abdominal pain started on Tuesday. Patient has been having nausea with vomiting. Limitations to history: None Outside historians: EMR Past History Past Medical History: Diagnosis Date Anxiety Bile reflux gastritis Bipolar affective (HCC) Depression Morbid obesity, unspecified obesity type (HCC) Past Surgical History: Procedure Laterality Date APPENDECTOMY BILIOPANCREATIC DIVERSION 10/23/2008 Sherie @ [place]; janel-en-y duodenojejunostomy for bile reflux CHOLECYSTECTOMY 02/2007 lap COLONOSCOPY N/A 11/29/2023 [facility]; repeat in 11/2033 EXPLORATORY LAPAROTOMY 06/10/2019 Veronica @ [facility]; ex lap, WAI INCISION AND DRAINAGE OF WOUND 08/09/2013 [place]; I&D of surgical incision of LLQ INCISIONAL HERNIA REPAIR 10/20/2017 [place]; open primary repair INCISIONAL HERNIA REPAIR 07/12/2018 [place]; open w/ mesh INCISIONAL HERNIA REPAIR 09/26/2018 [place]; lap w/ mesh INCISIONAL HERNIA REPAIR 03/11/2020 ; repair w/ mesh excision, mesh replacement, WAI INCISIONAL HERNIA REPAIR 07/19/2015 [place]; open repair w/ mesh SOFT TISSUE MASS EXCISION 08/02/2013 [place]; STM excision of LLQ TONSILLECTOMY Social History Socioeconomic History Marital status: Single Tobacco Use Smoking status: Former Types: Cigarettes Smokeless tobacco: Never Substance and Sexual Activity Alcohol use: Not Currently Drug use: Yes Frequency: 2.0 times per week Types: Marijuana Comment: edibles Sexual activity: Not Currently Social Determinants of Health Financial Resource Strain: Medium Risk (03/11/2023) Received from [facility] Overall Financial Resource Strain (CARDIA) Difficulty of Paying Living Expenses: Somewhat hard Food Insecurity: Food Insecurity Present (03/11/2023) Received from [facility] Hunger Vital Sign Worried About Running Out of Food in the Last Year: Sometimes true Ran Out of Food in the Last Year: Sometimes true Transportation Needs: No Transportation Needs (04/10/2024) PRAPARE - Transportation Lack of Transportation (Medical): No Lack of Transportation (Non-Medical): No Physical Activity: Insufficiently Active (08/05/2020) Received from [facility] Exercise Vital Sign Days of Exercise per Week: 4 days Minutes of Exercise per Session: 30 min Stress: Stress Concern Present (08/05/2020) Received from [facility] [place] [facility] Occupational Health - Occupational Stress Questionnaire Feeling of Stress : Rather much Social Connections: Unknown (08/05/2020) Received from [facility] Social Connection and Isolation Panel [NHANES] Frequency of Communication with Friends and Family: Three times a week Frequency of Social Gatherings with Friends and Family: Once a week Attends [employer] Services: More than 4 times per year Intimate Partner Violence: Not At Risk (04/10/2024) Humiliation, Afraid, Rape, and Kick questionnaire Fear of Current or Ex-Partner: No Emotionally Abused: No Physically Abused: No Sexually Abused: No Housing Stability: High Risk (04/10/2024) Housing Stability Vital Sign Unable to Pay for Housing in the Last Year: Yes Number of Times Moved in the Last Year: 1 Homeless in the Last Year: No Medications/Allergies Previous Medications ACETAMINOPHEN (TYLENOL) 325 MG TABLET Take 650 mg by mouth every 6 hours as needed for mild pain (1-3), moderate pain (4-6), headaches or fever. ALBUTEROL 108 (90 BASE) MCG/ACT INHALER Inhale 2 puffs every 4 hours as needed for wheezing or shortness of breath. FLUOXETINE (PROZAC) 20 MG CAPSULE Take 20 mg by mouth in the morning. IBUPROFEN 800 MG TABLET Take 800 mg by mouth every 6 hours as needed. METFORMIN XR (GLUCOPHAGE-XR) 500 MG 24 HR TABLET Take 1 tablet (500 mg) by mouth with evening meal. PHENTERMINE (ADIPEX-P) 37.5 MG TABLET Take 1 tablet (37.5 mg) by mouth every morning (before breakfast). PHENTERMINE (ADIPEX-P) 37.5 MG TABLET Take 1 tablet (37.5 mg) by mouth every morning (before breakfast). PROMETHAZINE (PHENERGAN) 25 MG SUPPOSITORY Insert 1 suppository (25 mg) into the rectum every 6 hours as needed for vomiting. Allergies Allergen Reactions Ketorolac Hives and Shortness of breath Other reaction(s): Hives Ondansetron Shortness of breath and Hives Other reaction(s): Hives, Respiratory distress Physical Exam BP 106/70 Pulse 83 Temp 36.9 C (98.4 F) (Oral) Resp 20 Ht 1.651 m (5' 5) Wt 110 kg (243 lb) LMP 04/03/2024 (Approximate) SpO2 97% BMI 40.44 kg/m Physical Exam GENERAL APPEARANCE: Awake and alert. Cooperative. HEENT: Normocephalic. Atraumatic. No trismus. NECK: Supple. Trachea midline. CARDIO: Normal rate. Radial pulses symmetrical and palpable LUNGS: Respirations unlabored. CTAB. ABDOMEN: Soft. Large ventral hernia. Diffuse abdominal tenderness to palpation. SKIN: Warm and dry. NEUROLOGICAL: No gross facial drooping. No obvious neurologic deficits. Moves all 4 extremities spontaneously. SCREENINGS D Labs: Results for orders placed or performed during the hospital encounter of 04/24/24 CBC auto differential Result Value Ref Range Auto WBC 10.2 3.6 - 10.7 10*3/uL RBC 4.31 3.80 - 5.20 10*6/uL Hemoglobin 13.5 11.7 - 16.0 g/dL Hematocrit 40.2 35.0 - 47.0 % MCV 93.3 77.0 - 99.0 fL MCH 31.3 26.0 - 34.0 pg MCHC 33.6 30.5 - 36.0 % RDW 12.7 11.5 - 15.0 % Platelets 304 140 - 440 10*3/uL MPV 9.0 9.0 - 12.7 fL nRBC 0.0 0.0 - 2.0 /100 WBCs Neutrophils Relative 64.6 38.0 - 82.0 % Lymphocytes Relative 26.7 15.0 - 45.0 % Monocytes Relative 5.9 5.0 - 13.0 % Eosinophils Relative 2.1 0.0 - 6.0 % Basophils Relative 0.3 0.0 - 2.0 % Immature Grans % 0.4 0.0 - 2.0 % Neutrophils Absolute 6.6 1.8 - 7.5 10*3/uL Lymphocytes Absolute 2.7 1.0 - 4.3 10*3/uL Monocytes Absolute 0.6 0.0 - 0.9 10*3/uL Eosinophils Absolute 0.2 0.0 - 0.5 10*3/uL Basophils Absolute 0.0 0.0 - 0.2 10*3/uL Immature Grans Absolute 0.0 <0.1 10*3/uL Comprehensive metabolic panel Result Value Ref Range SODIUM 137 135 - 145 mmol/L POTASSIUM 3.4 (L) 3.5 - 5.1 mmol/L CHLORIDE 108 (H) 98 - 107 mmol/L CARBON DIOXIDE 21 (L) 22 - 30 mmol/L ANION GAP 9 3 - 13 mmol/L UREA NITROGEN 9 7 - 17 mg/dL CREATININE 0.64 0.52 - 1.04 mg/dL GLUCOSE 119 (H) 70 - 100 mg/dL CALCIUM 9.6 8.4 - 10.4 mg/dL AST (SGOT) 19 15 - 46 U/L ALT 20 0 - 34 U/L ALKALINE PHOSPHATASE 41 38 - 126 U/L ALBUMIN 4.4 3.5 - 5.0 g/dL BILIRUBIN, TOTAL 0.3 0.2 - 1.3 mg/dL TOTAL PROTEIN 7.2 6.3 - 8.2 g/dL eGFR >90.0 >60.0 mL/min/1.73m*2 Lipase Result Value Ref Range LIPASE 81 23 - 300 U/L hCG, urine, qualitative Result Value Ref Range HCG,URINE QUAL Negative Negative Radiographs: CT abdomen pelvis w contrast Final Result 1. Very large ventral hernia containing nondilated bowel loops including an anastomosis involving small bowel 2. Indeterminate small left renal lesions as previously described. These are not significantly changed since 09/13/2023 Report Dictated on Electronically Signed By: Jose Carlson MD Electronically Signed Date/Time: 04/24/2024 2:58 AM EDT : EKG: All EKG's areinterpreted by the Emergency Department Physician in the absence of a smoking tobacco packing machine hand. see their note for interpretation of EKG. EMERGENCY DEPARTMENT COURSE and DIFFERENTIAL DIAGNOSIS/MDM: External Records Review: Reviewed Care Everywhere. Social Determinants of Health: none. Mel Wall is a 38 y.o. female who presented to the emergency department for abdominal pain and surgery evaluation. Patient was transferred here from [facility] for surgery evaluation of ventral hernia. Our workup consisted of ordering/reviewing CBC, CMP, lipase, hCG, CT abd/pelvis and showed no leukocytosis. CT ab/pelvis showed very large ventral hernia containing nondilated bowel loops including an anastomosis involving small bowel. Indeterminate small left renal lesions as previously described. These are not significantly changed since 09/13/2023. Will consult general surgery. General surgery evaluated patient and will admit patient to their service for further workup/management. Please see surgery note for details. Patient given additional IV Dilaudid and Phenergan. Final Diagnosis: 1. Ventral hernia without obstruction or gangrene Medications HYDROmorphone (Dilaudid) injection 0.5 mg (has no administration in time range) promethazine (Phenergan) injection 12.5 mg (has no administration in time range) enoxaparin (Lovenox) syringe 30 mg (has no administration in time range) lactated Ringer's (LR) infusion (has no administration in time range) acetaminophen (Ofirmev) IVPB 1,000 mg (has no administration in time range) HYDROmorphone (Dilaudid) injection 0.25 mg (has no administration in time range) Or HYDROmorphone (Dilaudid) injection 0.5 mg (has no administration in time range) promethazine (Phenergan) tablet 12.5 mg (has no administration in time range) Or promethazine (Phenergan) injection 12.5 mg (has no administration in time range) Or promethazine (Phenergan) suppository 12.5 mg (has no administration in time range) oxymetazoline (Afrin) 0.05 % nasal spray 2 spray (has no administration in time range) lidocaine (Uro-Jet) 2 % gel (has no administration in time range) morphine injection 4 mg (4 mg IntraVENous Given 04/24/24 015) sodium chloride 0.9 % bolus 1,000 mL (0 mL IntraVENous Stopped 04/24/24 0355) metoclopramide (Reglan) injection 10 mg (10 mg IntraVENous Given 04/24/24 015) HYDROmorphone (Dilaudid) injection 0.5 mg (0.5 mg IntraVENous Given 04/24/24 0223) haloperidol lactate (Haldol) injection 2 mg (2 mg IntraMUSCular Given 04/24/24 0358) CONSULTS: None PROCEDURES: Unless otherwise noted below, none Procedures DISPOSITION/PLAN Admit 04/24/2024 06:21:08 AM PATIENT REFERRED TO: No follow-up provider specified. DISCHARGE MEDICATIONS: New Prescriptions No medications on file @[facility]([id number]:LAST:1)@ (Please note: Portions of this note were completed with a voice recognition program. Efforts were made to edit the dictations but occasionally words and phrases are mis-transcribed.) Form [id number] Larry Crook PA-C Acute [facility] Larry Crook PA-C 04/24/24 0629 [facility] Phone: 04-24-2024 Telephone encounter Note S-This 38 year old patient is calling with abdominal pain and feeling dizzy. B-She was hospitalized from 04/10-04/13 for a partial bowel obstruction not requiring surgical intervention. She has a ventral hernia since 2021. A-States her right sided abdominal pain started around 7:00 pm tonight, constant, pain is 7-8 and radiates to her back, moving makes it worse. She complains of nausea and has taken a Phenergan Suppository without relief. No BM today. Watery BM yesterday. No gas from her rectum today. She complains of having anxiety and feels like her heart is irregular. R-I advised [facility] and [facility] ED. Patient wants to drive herself to [facility] that is 5 minutes away or maybe calling her sister. I advised her against driving for multiple reasons. She is dizzy, may faint and hurt herself or someone else. She may have a heart issue requiring medications, IV's or oxygen. I advised [facility] instead of [facility] because she may need to be transferred. Patient states she will try to call her sister. Reason for Disposition Sounds like a life-threatening emergency to the triager Answer Assessment - Initial Assessment Questions 1. LOCATION: Where does it hurt? Right side 2. RADIATION: Does the pain shoot anywhere else? (e.g., chest, back) Radiates to her back 3. ONSET: When did the pain begin? (e.g., minutes, hours or days ago) 7 pm 4. SUDDEN: Gradual or sudden onset? gradual 5. PATTERN Does the pain come and go, or is it constant? - If it comes and goes: How long does it last? Do you have pain now? (Note: Comes and goes means the pain is intermittent. It goes away completely between bouts.) - If constant: Is it getting better, staying the same, or getting worse? (Note: Constant means the pain never goes away completely; most serious pain is constant and gets worse.) constant 6. SEVERITY: How bad is the pain? (e.g., Scale 1-10; mild, moderate, or severe) - MILD (1-3): Doesn't interfere with normal activities, abdomen soft and not tender to touch. - MODERATE (4-7): Interferes with normal activities or awakens from sleep, abdomen tender to touch. - SEVERE (8-10): Excruciating pain, doubled over, unable to do any normal activities. 7-8 7. RECURRENT SYMPTOM: Have you ever had this type of stomach pain before? If Yes, ask: When was the last time? and What happened that time? Not sure 8. CAUSE: What do you think is causing the stomach pain? Not sure 9. RELIEVING/AGGRAVATING FACTORS: What makes it better or worse? (e.g., antacids, bending or twisting motion, bowel movement) Moving makes it worse 10. OTHER SYMPTOMS: Do you have any other symptoms? (e.g., back pain, diarrhea, fever, urination pain, vomiting) See note 11. : Is there any chance you are ? When was your last menstrual period? 2 weeks ago Protocols used: Abdominal Pain - [id number] [facility] 04-24-2024 Miscellaneous Notes S-This 38 year old patient is calling with abdominal pain and feeling dizzy. B-She was hospitalized from 04/10-04/13 for a partial bowel obstruction not requiring surgical intervention. She has a ventral hernia since 2021. A-States her right sided abdominal pain started around 7:00 pm tonight, constant, pain is 7-8 and radiates to her back, moving makes it worse. She complains of nausea and has taken a Phenergan Suppository without relief. No BM today. Watery BM yesterday. No gas from her rectum today. She complains of having anxiety and feels like her heart is irregular. R-I advised [facility] and [facility] ED. Patient wants to drive herself to [facility] that is 5 minutes away or maybe calling her sister. I advised her against driving for multiple reasons. She is dizzy, may faint and hurt herself or someone else. She may have a heart issue requiring medications, IV's or oxygen. I advised [facility] instead of [facility] because she may need to be transferred. Patient states she will try to call her sister. Reason for Disposition Sounds like a life-threatening emergency to the triager Answer Assessment - Initial Assessment Questions 1. LOCATION: Where does it hurt? Right side 2. RADIATION: Does the pain shoot anywhere else? (e.g., chest, back) Radiates to her back 3. ONSET: When did the pain begin? (e.g., minutes, hours or days ago) 7 pm 4. SUDDEN: Gradual or sudden onset? gradual 5. PATTERN Does the pain come and go, or is it constant? - If it comes and goes: How long does it last? Do you have pain now? (Note: Comes and goes means the pain is intermittent. It goes away completely between bouts.) - If constant: Is it getting better, staying the same, or getting worse? (Note: Constant means the pain never goes away completely; most serious pain is constant and gets worse.) constant 6. SEVERITY: How bad is the pain? (e.g., Scale 1-10; mild, moderate, or severe) - MILD (1-3): Doesn't interfere with normal activities, abdomen soft and not tender to touch. - MODERATE (4-7): Interferes with normal activities or awakens from sleep, abdomen tender to touch. - SEVERE (8-10): Excruciating pain, doubled over, unable to do any normal activities. 7-8 7. RECURRENT SYMPTOM: Have you ever had this type of stomach pain before? If Yes, ask: When was the last time? and What happened that time? Not sure 8. CAUSE: What do you think is causing the stomach pain? Not sure 9. RELIEVING/AGGRAVATING FACTORS: What makes it better or worse? (e.g., antacids, bending or twisting motion, bowel movement) Moving makes it worse 10. OTHER SYMPTOMS: Do you have any other symptoms? (e.g., back pain, diarrhea, fever, urination pain, vomiting) See note 11. : Is there any chance you are ? When was your last menstrual period? 2 weeks ago Protocols used: Abdominal Pain - [id number] documented in this encounter [facility] 04-16-2024 Telephone encounter Note Called patient to schedule a new patient appointment with Paulina Diaz. UNable to reach, but left a VM for her to call me back to schedule. Juana Brown [facility] 04-16-2024 Miscellaneous Notes Called patient to schedule a new patient appointment with Paulina Diaz. UNable to reach, but left a VM for her to call me back to schedule. Juana Brown documented in this encounter [facility] 04-15-2024 Hospital Discharge instructions Maricel Zamora PA-C - 04/15/2024 1:01 PM EDT CT of your abdomen does not reveal any signs of a bowel obstruction at this time. Continue using your pain medication and nausea medication that you were recently prescribed to help with your symptoms. Please follow-up with Dr. Taylor for further evaluation and management of your symptoms. Return to the ED with any new or worsening symptoms In the medical field, there is always a level of diagnostic uncertainty, even if this uncertainty is low. For this reason, it is important to immediately return to the emergency department if you have any new symptoms, worsening symptoms, change of symptoms, or if you have any other concerns. We would be happy to re-evaluate you. Otherwise, please take your medications as prescribed and follow-up as recommended. documented in this encounter [facility] 04-15-2024 Emergency department Note Emergency Department Encounter [facility] EMERGENCY DEPT Patient: Mel Wall : 1985 Date of Evaluation: 04/15/2024 ED Supervising Physician: Marvin Real MD I personally evaluated Mel Wall and made/approved the management plan and take responsibility for the patient management. This will serve as my Supervisory note and shared attestation. I did perform a substantive portion of the visit including all aspects of the Medical Decision Making. I wore appropriate PPE for the entirety of this encounter. In brief, Mel Wall is a 38 y.o. that presents to the emergency department chief complaint of abdominal pain. Endorses nausea. Reports no bowel movements or passing flatus. Patient had a history of a partial obstruction recently. Currently following with Dr. Taylor from surgery. History of multiple abdominal surgeries for recurrent ventral, incisional hernia s/p duodenal switch (2008). Focused exam: 38-year-old female. Normal work of breathing. Large ventral hernia with reported associated tenderness on right side. No rebound tenderness. Brief ED course/MDM: Patient symptomatically. Evaluate with blood work and CT imaging. Diagnostics interpreted by me: CT scan(s) abdomen ED Course as of 04/15/24 1241 Sun Apr 15, 2024 1107 Auto WBC: 7.1 [SP] 1107 HEMOGLOBIN: 13.8 [SP] 1107 eGFR: >90.0 [SP] 1107 POTASSIUM(!): 3.2 Treating with intravenous and oral potassium chloride. [SP] 1107 LIPASE: 113 [SP] 1107 CT abdomen pelvis w contrast IMPRESSION: 1. No acute process. 2. Unchanged large ventral hernia containing nonobstructed large and small bowel [SP] 1107 Strongly suspect cannabinoid component for possible cannabinoid hyperemesis. Treating with intravenous Reglan, diphenhydramine as patient does not have a bowel obstruction on CT abdomen. Plan to reevaluate [SP] ED Course User Index [SP] Marvin Real MD Diagnoses as of 04/15/24 1241 Nausea and vomiting, unspecified vomiting type Ventral hernia without obstruction or gangrene All diagnostic, treatment, and disposition decisions were made by myself in conjunction with the CASANDRA. For all further details of the patient's emergency department visit, please see their documentation. (Comment: Please note this report has been produced using speech recognition software and may contain errors related to that system including errors in grammar, punctuation, and spelling, as well as words and phrases that may be inappropriate. If there are any questions or concerns please feel free to contact the dictating provider for clarification.) Marvin Real MD Acute Care [facility] Marvin Real MD 04/15/24 0941 Pt dx bowel obstruction last Tuesday, admitted to [facility], monitored, non-surgical, discharged home after having BM. Sts pain is ongoing and worsened again. Negative resp distress, positive full sentences, negative diaphoresis, positive steady gait. Times are approximate. documented in this encounter [facility] 04-15-2024 Emergency department Triage note Pt dx bowel obstruction last Tuesday, admitted to [facility], monitored, non-surgical, discharged home after having BM. Sts pain is ongoing and worsened again. Negative resp distress, positive full sentences, negative diaphoresis, positive steady gait. Times are approximate. [facility] 04-15-2024 Physician Emergency department Note Emergency Department Encounter [facility] EMERGENCY DEPT Patient: Mel Wall : 1985 Date of Evaluation: 04/15/2024 ED Supervising Physician: Marvin Real MD I personally evaluated Mel Wall and made/approved the management plan and take responsibility for the patient management. This will serve as my Supervisory note and shared attestation. I did perform a substantive portion of the visit including all aspects of the Medical Decision Making. I wore appropriate PPE for the entirety of this encounter. In brief, Mel Wall is a 38 y.o. that presents to the emergency department chief complaint of abdominal pain. Endorses nausea. Reports no bowel movements or passing flatus. Patient had a history of a partial obstruction recently. Currently following with Dr. Taylor from surgery. History of multiple abdominal surgeries for recurrent ventral, incisional hernia s/p duodenal switch (2008). Focused exam: 38-year-old female. Normal work of breathing. Large ventral hernia with reported associated tenderness on right side. No rebound tenderness. Brief ED course/MDM: Patient symptomatically. Evaluate with blood work and CT imaging. Diagnostics interpreted by me: CT scan(s) abdomen ED Course as of 04/15/24 1241 Sun Apr 15, 2024 1107 Auto WBC: 7.1 [SP] 1107 HEMOGLOBIN: 13.8 [SP] 1107 eGFR: >90.0 [SP] 1107 POTASSIUM(!): 3.2 Treating with intravenous and oral potassium chloride. [SP] 1107 LIPASE: 113 [SP] 1107 CT abdomen pelvis w contrast IMPRESSION: 1. No acute process. 2. Unchanged large ventral hernia containing nonobstructed large and small bowel [SP] 1107 Strongly suspect cannabinoid component for possible cannabinoid hyperemesis. Treating with intravenous Reglan, diphenhydramine as patient does not have a bowel obstruction on CT abdomen. Plan to reevaluate [SP] ED Course User Index [SP] Marvin Real MD Diagnoses as of 04/15/24 1241 Nausea and vomiting, unspecified vomiting type Ventral hernia without obstruction or gangrene All diagnostic, treatment, and disposition decisions were made by myself in conjunction with the CASANDRA. For all further details of the patient's emergency department visit, please see their documentation. (Comment: Please note this report has been produced using speech recognition software and may contain errors related to that system including errors in grammar, punctuation, and spelling, as well as words and phrases that may be inappropriate. If there are any questions or concerns please feel free to contact the dictating provider for clarification.) Marvin Real MD [facility] Acute Care [facility] Marvin Real MD 04/15/24 0941 [place] Phone: 04-15-2024 Telephone encounter Note S: Patient spoke with [facility] nurse regarding abdominal pain and vomiting B: Onset of symptoms/concern worsening pain in the middle of the night A: Pt had a bowel obstruction on 04-10-24. Was admitted but was released to watch on 04-13-24. No surgical intervention. Woke with vomiting yellow bile and blood in stool at 4 am. Stool is all liquid. Abdominal pain is worse. Rates the abdominal pain 9/10 and constant. Pt is teary on the phone. States has not been able to take anything for the pain because it will not stay down. The pain is located on the right side and does not radiate. Has been getting cold sweats and chills. Dizziness. Denies fever, chest pain, sob, back pain, or trouble urinating. Pt has a hernia. Was told by surgeon when released from hospital that if obstruction symptoms get worse to return to the ED. Pt states not sure if these symptoms are from hernia or obstruction. Has had similar but less intense pain from the hernia before. R: Pt advised to go to ED. Needs evaluated to determine what is causing the symptoms. Patient states will go to [facility] ED. Instructed to call back with any further questions or concerns. Reason for Disposition [1] SEVERE pain (e.g., excruciating) AND [2] present > 1 hour Protocols used: Abdominal Pain - [id number] T [facility] 04-15-2024 Miscellaneous Notes S: Patient spoke with [facility] nurse regarding abdominal pain and vomiting B: Onset of symptoms/concern worsening pain in the middle of the night A: Pt had a bowel obstruction on 04-10-24. Was admitted but was released to watch on 04-13-24. No surgical intervention. Woke with vomiting yellow bile and blood in stool at 4 am. Stool is all liquid. Abdominal pain is worse. Rates the abdominal pain 9/10 and constant. Pt is teary on the phone. States has not been able to take anything for the pain because it will not stay down. The pain is located on the right side and does not radiate. Has been getting cold sweats and chills. Dizziness. Denies fever, chest pain, sob, back pain, or trouble urinating. Pt has a hernia. Was told by surgeon when released from hospital that if obstruction symptoms get worse to return to the ED. Pt states not sure if these symptoms are from hernia or obstruction. Has had similar but less intense pain from the hernia before. R: Pt advised to go to ED. Needs evaluated to determine what is causing the symptoms. Patient states will go to [facility]. Instructed to call back with any further questions or concerns. Reason for Disposition [1] SEVERE pain (e.g., excruciating) AND [2] present > 1 hour Protocols used: Abdominal Pain - [id number] documented in this encounter [facility] 04-13-2024 Nurse Note AVS, medication list, and pt to make follow up appointment for [address] Taylor, reviewed with pt. 2 copies of work note given to pt. Pt states understanding. Pt received medications from meds to beds. . [facility] 04-13-2024 Nurse Note AVS, medication list, and pt to make follow up appointment for [address] Taylor, reviewed with pt. 2 copies of work note given to pt. Pt states understanding. Pt received medications from meds to beds. . documented in this encounter [facility] 04-13-2024 Plan of care note Problem: Pain - Adult Goal: Verbalizes/displays adequate comfort level or baseline comfort level Outcome: Progressing Flowsheets (Taken 04/13/2024 0914) Verbalizes/displays adequate comfort level or baseline comfort level: Encourage patient to monitor pain and request assistance Assess pain using appropriate pain scale Administer analgesics based on type and severity of pain and evaluate response Implement non-pharmacological measures as appropriate and evaluate response Problem: Gastrointestinal - Adult Goal: Minimal or absence of nausea and vomiting Outcome: Progressing Flowsheets (Taken 04/13/2024913) Minimal or absence of nausea and vomiting: Administer IV fluids as ordered to ensure adequate hydration Provide nonpharmacologic comfort measures as appropriate Advance diet as tolerated, if ordered Nutrition consult to assist patient with adequate nutrition and appropriate food choices The patient is Moderately Stable - Low risk of patient condition declining or worsening The patient's goals for the shift include Pain control The clinical goals for the shift include Pain control [facility] 04-13-2024 Miscellaneous Notes Problem: Pain - Adult Goal: Verbalizes/displays adequate comfort level or baseline comfort level Outcome: Progressing Flowsheets (Taken 04/13/2024913) Verbalizes/displays adequate comfort level or baseline comfort level: Encourage patient to monitor pain and request assistance Assess pain using appropriate pain scale Administer analgesics based on type and severity of pain and evaluate response Implement non-pharmacological measures as appropriate and evaluate response Problem: Gastrointestinal - Adult Goal: Minimal or absence of nausea and vomiting Outcome: Progressing Flowsheets (Taken 04/13/2024913) Minimal or absence of nausea and vomiting: Administer IV fluids as ordered to ensure adequate hydration Provide nonpharmacologic comfort measures as appropriate Advance diet as tolerated, if ordered Nutrition consult to assist patient with adequate nutrition and appropriate food choices The patient is Moderately Stable - Low risk of patient condition declining or worsening The patient's goals for the shift include Pain control The clinical goals for the shift include Pain control TCC informed SW, Pt in need of establishing PCP SW met w /Pt, introduced self, explained role, and inquired upon possible need for supports or community resources. SW addressed SDOH listed. Pt reported she lives alone, struggles with not having enough money for rent and gas for her car. Pt stated she is currently up to date on rent and has no disconnection notice for utilities. Pt stated her co-worker gave her a list of community resources, declined need for additional resources. Pt reported need to establish PCP. SW gave Pt list of [facility] Medicaid PCP providers within 5 miles from her home. List was obtained from [facility] Medicaid website. WILBUR referred Pt to contact providers to ensure list is accurate. Pt thanked WILBUR and reported no other needs at this time. Care Managment Initial Assessment Date: 04/11/2024 Patient Name: Mel Wall : 1985 Patient Information Source of Information: Patient Cognition/Language: WFL - Within Functional Limits Permission given to speak with patient loan representative/caregiver as indicated: Yes Confirmation of Payer with patient/family: Yes Payer Name: [facility] MEDICAID/ : No Confirmation of Primary Care Physician: No PCP (WILBUR notified) Primary Caregiver: Self If assistance needed, confirmed caregiver ready, willing and able to care for patient at discharge: Confirmed with: Living Arrangements Current Residence: Apartment Number of Floors 1 Number of Entry Steps: 5 or more (flight) Bed/Bath Levels: Both first floor Facility: Facility Name: Plan to Return: Lives with: Alone Support Systems: Family members Activities of Daily Living Ambulation: Independent Bathing/Dressing: Independent Elimination/Continence/Toileting: Independent Feeding: Independent Who Assists with Activities of Daily Living: Instrumental Activities of Daily Living Prescription Coverage: Yes Pharmacy Used: [facility] in [place] Medication Management: Independent Transportation/Shopping: Independent Transportation Mode: Car Needs Assistance with Transportation at Discharge: No Meal Preparation: Independent Laundry/Cleaning: Independent Finances/Bill Paying: Independent Communication: Independent Types of Care Services/Equipment Utilized Care Services: Dialysis Type: Durable Medical Equipment: (denies DME) Patient's Goal/Discharge Plan Patient expects to be discharged to: home Discharge Planning Actions: Continue to follow Patient's Choice Rights and [employer] and Collaborative Relationships Disclosed as Indicated for Post-Acute Care: Interdisciplinary Team Engagement: Social Work Referral for: Additional Information: Met with patient at bedside - reviewed discharge plan, introduced self and role. Patient from home independent-alone. Patient states has insurance and able to afford medications. Family will provide transportation home. Plan -Home - when medically stable. documented in this encounter [facility] 04-13-2024 Hospital Discharge instructions Scot Casanova MD - 04/13/2024 7:39 AM EDT Images from the original note were not included. Discharge Instructions Call your surgeon in 1 to 2 days to schedule a follow-up appointment in 1-2 weeks. OK to shower. OK for activity as tolerated. No heavy lifting over 10 pounds until seen by physician. Wound Care: keep wound clean and dry, reinforce dressing as needed and ice to area for comfort. If you have steri-strips, you may remove them 5 days after your surgery. If your steri-strips fall off sooner, you may leave them off. If you have shilpa, they can be removed in 14 days after your surgery by your surgeon or PCP. If you have a drain, please record daily output amounts and bring the recordings with you to your office follow up. No driving while taking narcotic pain medications. Ok for regular diet. You may take an over the counter stool softener while on narcotics for constipation as needed (colace, miralax, etc). Call your Physician or return to the Emergency Room if you experience: -New or increased pain. -New or increased bleeding. -Nausea & vomitting. -Fever & chills. -Shortness of breath. -Chest pain. -Abdominal distention. Post-Operative Pain Reduction Strategy to Minimize Opioid Use Please take acetaminophen (Tylenol) and/or NSAIDS (Advil, Motrin) for postoperative pain control before taking opioid prescriptions for pain. You can alternate between the two or stagger them to achieve a more durable pain control regimen. -Do not exceed more than 4g of acetaminophen within 24 hours -Do not exceed more than 3200 mg NSAIDs in 24 hours -Do not take NSAIDs or acetaminophen if you have any contraindications to them. If your pain is not controlled by acetaminophen and/or NSAIDS, please take your opioid prescription ([place]/vicodin/percocet have tylenol in them) as needed for pain relief and try to use the minimum amount necessary for adequate pain relief. Opioid narcotics can suppress your respiratory drive and decrease your level of alertness. It can also cause your bowel function to slow down and potentially make you constipated. -Do not drive or operate heavy machinery while on narcotic medications. -You can take Colace or MiraLAX over the counter as needed for constipation. Please properly dispose your excess opioid medications at the appropriate facility/location. An EXAMPLE schedule of how to take these medications is below. It is not necessary to wake yourself from sleep to take pain medication. 6am: 1000 mg tylenol and 1-2 oxycodone (5mg) tablets if needed 9am: 800 mg ibuprofen 12pm: 1000 mg tylenol and 1-2 oxycodone (5mg) tablets if needed 3pm: 800 mg ibuprofen 6pm: 1000 mg tylenol and 1-2 oxycodone (5mg) tablets if needed 9pm: 800 mg ibuprofen 12am: 1000 mg tylenol and 1-2 oxycodone (5mg) tablets if needed 3am: 800 mg ibuprofen 6am: 1000 mg tylenol and 1-2 oxycodone (5mg) tablets if needed documented in this encounter [facility] 04-13-2024 Hospital course Narrative Images from the original note were not included. Discharge Summary Mel Wall : 1985 ADMIT DATE: 04/10/2024 DISCHARGE DATE: 04/13/2024 PRIMARY CARE PHYSICIAN: [facility] (Inactive) VISIT STATUS: Admission CODE STATUS: Full Code DISCHARGE DIAGNOSES: Principal Problem: Generalized abdominal pain HOSPITAL COURSE: Patient presented on 04/10 to the ED with generalized abdominal pain, N/V, and obstipation. Pertinent history of a duodenal switch (2008) with recurrent incisional ventral hernia. Imaging was not conclusive for obstruction but pt was admitted to monitor for intermittent obstruction. On hospital day 1 the patient had mild nausea without emesis, no BM/flatus and pain was stable. Hospital day 2 pain had been intermittently worse, but nausea improving. Tolerating clear diet without distension. Still without BM/flatus. Hospital day 3, pain improving, tolerating FLD well and having some liquid Bms with one moderate sized BM. Pt was ambulating, tolerating diet, pain under control and wished for discharged. SIGNIFICANT DIAGNOSTIC STUDIES: See full chart CONSULTANTS: Nutrition DISCHARGE MEDICATIONS: Medication List START taking these medications oxyCODONE 5 MG immediate release tablet Commonly known as: Roxicodone Take 1 tablet (5 mg) by mouth every 6 hours as needed for severe pain (7-10) for up to 3 days. CHANGE how you take these medications * phentermine 37.5 MG tablet Commonly known as: Adipex-P Take 1 tablet (37.5 mg) by mouth every morning (before breakfast). What changed: Another medication with the same name was removed. Continue taking this medication, and follow the directions you see here. * phentermine 37.5 MG tablet Commonly known as: Adipex-P Take 1 tablet (37.5 mg) by mouth every morning (before breakfast). What changed: Another medication with the same name was removed. Continue taking this medication, and follow the directions you see here. * promethazine 12.5 MG tablet Commonly known as: Phenergan Take 1 tablet (12.5 mg) by mouth every 6 hours as needed for nausea or vomiting for up to 7 days. What changed: You were already taking a medication with the same name, and this prescription was added. Make sure you understand how and when to take each. * Promethegan 25 MG suppository Generic drug: promethazine Insert 1 suppository (25 mg) into the rectum every 6 hours as needed for vomiting. What changed: Another medication with the same name was added. Make sure you understand how and when to take each. * This list has 4 medication(s) that are the same as other medications prescribed for you. Read the directions carefully, and ask your doctor or other care provider to review them with you. CONTINUE taking these medications acetaminophen 325 MG tablet Commonly known as: Tylenol albuterol 108 (90 Base) MCG/ACT inhaler ASK your doctor about these medications metFORMIN XR 500 MG 24 hr tablet Commonly known as: Glucophage-XR Take 1 tablet (500 mg) by mouth with evening meal. Where to Get Your Medications These medications were sent to [facility] [address] [place] [id number] Hours: Tuesday to Tuesday 10 am to 6 pm oxyCODONE 5 MG immediate release tablet Promethegan 25 MG suppository These medications were sent to [id number] - [place], [place] - [address] [place] [address] promethazine 12.5 MG tablet DIET: Adult diet Easy to Chew ACTIVITY: No heavy lifting. COMPLEXITY OF FOLLOW UP: [x] Moderate Complexity: follow up within 7-14 calendar days (43373) [] Severe Complexity: follow up within 7 calendar days (24994) FOLLOW UP TESTING, PENDING RESULTS OR REFERRALS AT TRANSITIONAL CARE VISIT: [] Yes [x] No PENDING STUDIES: None DISPOSITION: Home FACILITY/HOME CARE AGENCY NAME: n/a Follow up with Serafin Taylor DO [address] [place] [address] [address] [phone] Follow up in 2 week(s) Please call the office ANNE to schedule a hospital follow up appointment [facility] [address] [id number] INSTRUCTIONS TO MA/SW: Please call patient on day after discharge (must document patient contacted within 2 business days of discharge). FOLLOW UP QUESTIONS FOR MA/SW: 1. Did you get medications filled and taking them as instructed from discharge? 2. Are you following your discharge instructions from your hospital stay? 3. Please confirm patient is scheduled for a follow up appointment within the above time frame. DISCHARGE TIME: > 30 min SIGNED: Scot Casanova MD 04/13/2024, 12:37 PM documented in this encounter [facility] 04-13-2024 History of Present illness Narrative Department of General Surgery Daily Progress Note SUBJECTIVE: NAEON. Pain better. FLD went well. Having liquid Bms. Shortly after am rounds, paged by RN patient had moderate sized BM. OBJECTIVE: VITALS: BP 123/63 (BP Location: Right arm, Patient Position: Lying) Pulse 53 Temp 36.1 C (97 F) (Temporal) Resp 18 Wt 111 kg (245 lb) LMP 04/03/2024 (Approximate) SpO2 98% BMI 40.77 kg/m INTAKE/OUTPUT: @IODETAILS@ I/O last 3 completed shifts: In: 825 (7.4 mL/kg) [IV Piggyback:825] Out: - (0 mL/kg) Weight: 111.1 kg No intake/output data recorded. PHYSICAL EXAM: Gen: NAD, alert, pain well controlled Heart: RRR, well perfused Lungs: symmetric chest rise, normal work of breathing Abd: soft, TTP over RLQ/hernia sac. Non distended. Non rigid. Massive chronic hernia that is soft. No overlying skin changes. Ext: no c/c/e no gross deformities Skin: warm, well perfused, <2 cm cap refill, no obvious rashes, cellulitis or gross discoloration LABS CBC: Recent Labs 04/11/24 0844 04/12/24 0623 04/13/24 0306 WBC 4.2 4.7 7.0 HGB 11.9 11.4* 13.7 HCT 36.0 34.8* 42.3 PLT 216 217 284 BMP: Recent Labs 04/11/24 0844 04/12/24 0623 04/13/24 0306 NA 137 135 138 K 3.8 3.7 4.0 CL 108* 106 102 CO2 25 25 25 BUN 4* <2* 2* CREATININE 0.44* 0.43* 0.50* GLUCOSE 97 93 91 Hepatic: Recent Labs 04/10/24 0801 AST 20 ALT 17 BILITOT 0.6 ALKPHOS 46 Current Inpatient Medications Scheduled Meds:acetaminophen, 1,000 mg, IntraVENous, q8h bisacodyl, 10 mg, Rectal, Daily docusate sodium, 100 mg, Oral, BID enoxaparin, 40 mg, SubCUTAneous, Daily lidocaine, , Topical, Once methocarbamol, 1,000 mg, IntraVENous, TID oxymetazoline, 2 spray, Each Nostril, Once polyethylene glycol (PEG) 3350, 17 g, Oral, Daily thiamine, 100 mg, Oral, Daily Continuous Infusions: PRN Meds:PRN medications: HYDROmorphone OR HYDROmorphone, naloxone, promethazine OR promethazine OR promethazine ASSESSMENT AND PLAN: 38 y.o. female prior duodenal switch, loss of domain ventral hernia, presenting with pain and poss obstruction -Soft diet, SLIV -Multimodal pain control -DVT ppx -Continue daily dulcolax supp -Continue admit to surg 4 -DC home this pm Staff: Will discuss with Dr. Miranda Arevalo MD PGY5, General Surgery Pager #[phone] ATTESTATION The patient was seen and examined. I have reviewed the patients presentation, histories, imaging and serology studies. I agree with the above assessment and plan. Patient is doing well, pain is well-controlled. Patient reports multiple bowel movements. Tolerating regular diet. I recommend low fiber, low residue diet at home. All the patient's questions were answered. Plan for discharge home later today. --------- I personally performed the evaluation and management of Mel Wall in the development of a treatment plan for this patient. I personally interviewed the patient and performed an individual physical examination. In addition, I discussed the patient's condition and treatment options with them. I have also reviewed and agree with the past medical, family and social history unless otherwise noted. All of the patient's questions were answered. I personally spent 35 minutes of time between the face to face encounter, physical exam, reviewing the medical history, coordinating the patient's care, counseling/educating the patient, ordering prescriptions/medications/tests/proc edures, interpreting results and documenting clinical information in the patient's electronic health record on the day of the encounter. Patient Care Team: [facility] Chris ([facility]) as PCP - General Serafin Taylor DO as Surgeon (General Surgery) Nutrition rescreen completed. Chart reviewed. Patient's diet advanced, monitor tolerance to diet. Patient to be monitored and followed by the diet plasma processing technician. Dietitian available upon request. NICKY Maldonado Department of General Surgery Daily Progress Note SUBJECTIVE: NAEON. Somewhat worsening pain overnight. Nausea improved, tolerated clears yesterday well without n/v/distention. No BM or flatus. Shortly after am rounds, paged by RN patient had moderate sized BM. OBJECTIVE: VITALS: BP 108/79 (BP Location: Left arm, Patient Position: Lying) Pulse 65 Temp 36.8 C (98.3 F) (Temporal) Resp 16 Wt 111 kg (245 lb) LMP 04/03/2024 (Approximate) SpO2 99% BMI 40.77 kg/m INTAKE/OUTPUT: @IODETAILS@ No intake/output data recorded. No intake/output data recorded. PHYSICAL EXAM: Gen: NAD, alert, pain well controlled Heart: RRR, well perfused Lungs: symmetric chest rise, normal work of breathing Abd: soft, TTP over RLQ/hernia sac. Non distended. Non rigid. Massive chronic hernia that is soft. No overlying skin changes. Ext: no c/c/e no gross deformities Skin: warm, well perfused, <2 cm cap refill, no obvious rashes, cellulitis or gross discoloration LABS CBC: Recent Labs 04/10/24 0801 04/11/24 0844 04/12/24 0623 WBC 4.4 4.2 4.7 HGB 13.7 11.9 11.4* HCT 40.7 36.0 34.8* PLT 221 216 217 BMP: Recent Labs 04/10/24 0801 04/11/24 0844 04/12/24 0623 NA 139 137 135 K 2.9* 3.8 3.7 CL 110* 108* 106 CO2 20* 25 25 BUN 4* 4* <2* CREATININE 0.49* 0.44* 0.43* GLUCOSE 163* 97 93 Hepatic: Recent Labs 04/10/24 0801 AST 20 ALT 17 BILITOT 0.6 ALKPHOS 46 Current Inpatient Medications Scheduled Meds:acetaminophen, 1,000 mg, IntraVENous, q8h bisacodyl, 10 mg, Rectal, Daily enoxaparin, 40 mg, SubCUTAneous, Daily lidocaine, , Topical, Once methocarbamol, 1,000 mg, IntraVENous, TID oxymetazoline, 2 spray, Each Nostril, Once polyethylene glycol (PEG) 3350, 17 g, Oral, Daily thiamine, 100 mg, Oral, Daily Continuous Infusions:dextrose 5 % and sodium chloride 0.45 % with KCl 20 mEq/L, 75 mL/hr PRN Meds:PRN medications: HYDROmorphone OR HYDROmorphone, naloxone, promethazine OR promethazine OR promethazine ASSESSMENT AND PLAN: 38 y.o. female prior duodenal switch, loss of domain ventral hernia, presenting with pain and poss obstruction -Continue CLD, poss adv to FLD later pending team discussion -Multimodal pain control -Could consider CT w IV contrast vs SBFT if concern persists tomorrow, KRISTEN this am encouraging, will defer and continue serial abdominal exams -DVT ppx -Continue daily dulcolax supp -Continue admit to surg 4 Staff: Will discuss with Dr. Miranda Oquendo MD PGY-3, General Surgery Pager# [phone] 04/12/2024 7:35 AM ATTESTATION The patient was seen and examined. I have reviewed the patients presentation, histories, imaging and serology studies. I agree with the above assessment and plan. Patient doing better this morning, pain is well-controlled. She denies nausea or vomiting. She reports multiple bowel movements this morning. Abdominal pain is improved. Hernia is softer. Tolerating a clear liquid diet. Okay to advance to a full liquid diet. Continue bowel regimen. We will continue to monitor. All the patient's questions were answered. --------- I personally performed the evaluation and management of Mel Wall in the development of a treatment plan for this patient. I personally interviewed the patient and performed an individual physical examination. In addition, I discussed the patient's condition and treatment options with them. I have also reviewed and agree with the past medical, family and social history unless otherwise noted. All of the patient's questions were answered. I personally spent 35 minutes of time between the face to face encounter, physical exam, reviewing the medical history, coordinating the patient's care, counseling/educating the patient, ordering prescriptions/medications/tests/proc edures, interpreting results and documenting clinical information in the patient's electronic health record on the day of the encounter. Patient Care Team: [facility] (Inactive) as PCP - General Serafin Taylor DO as Surgeon (General Surgery) General surgery interval update Repeat lactic acid 2.4 (2.7). To bedside for reassessment. On arrival patient resting comfortably in bed in no acute distress. Tolerating clears well without worsening pain, nausea, vomiting, belching/bloating, distention. No flatus or BM. Abdomen soft, stable moderate tenderness to palpation over large hernia sac, no overlying skin changes. No rebound or guarding. - Continue LR at 125 -Follow-up reflex lactic - Continue serial abdominal exams/p.m. resident check this evening - Add thiamine to assist with lactic acid clearance - PATI Oquendo MD PGY-2, General Surgery Pager# [phone] 04/11/2024 4:08 PM Department of General Surgery Daily Progress Note SUBJECTIVE: NAEON. Refused NGT leaving ER. Mild nausea no emesis. No BM or flatus. Stable pain OBJECTIVE: VITALS: BP 116/68 (BP Location: Left arm) Pulse 70 Temp 37.1 C (98.8 F) (Temporal) Resp 18 Wt 111 kg (245 lb) LMP 04/03/2024 (Approximate) SpO2 99% BMI 40.77 kg/m INTAKE/OUTPUT: @IODETAILS@ No intake/output data recorded. No intake/output data recorded. PHYSICAL EXAM: Gen: NAD, alert, pain well controlled Heart: RRR, well perfused Lungs: symmetric chest rise, normal work of breathing Abd: soft, non tender, non distended. Non rigid. Massive chronic hernia that is soft Ext: no c/c/e no gross deformities Skin: warm, well perfused, <2 cm cap refill, no obvious rashes, cellulitis or gross discoloration LABS CBC: Recent Labs 04/10/24 0801 04/11/24 0844 WBC 4.4 4.2 HGB 13.7 11.9 HCT 40.7 36.0 PLT 221 216 BMP: Recent Labs 04/10/24 0801 04/11/24 0844 NA 139 137 K 2.9* 3.8 CL 110* 108* CO2 20* 25 BUN 4* 4* CREATININE 0.49* 0.44* GLUCOSE 163* 97 Hepatic: Recent Labs 04/10/24 0801 AST 20 ALT 17 BILITOT 0.6 ALKPHOS 46 Current Inpatient Medications Scheduled Meds:acetaminophen, 1,000 mg, IntraVENous, q8h bisacodyl, 10 mg, Rectal, Daily enoxaparin, 40 mg, SubCUTAneous, Daily lidocaine, , Topical, Once oxymetazoline, 2 spray, Each Nostril, Once Continuous Infusions:lactated Ringer's, 125 mL/hr, Last Rate: 125 mL/hr (04/11/24 0235) PRN Meds:PRN medications: HYDROmorphone OR HYDROmorphone, naloxone, promethazine OR promethazine OR promethazine ASSESSMENT AND PLAN: 38 y.o. female prior duodenal switch, loss of domain ventral hernia, presenting with pain and poss obstruction -NPO, IVFs, bowel rest -Multimodal pain control - Await AM interval KUB - looking for contrast progression -DVT ppx Staff: Will discuss with Dr. Miranda Arevalo MD PGY4, General Surgery Pager #[phone] ATTESTATION The patient was seen and examined. I have reviewed the patients presentation, histories, imaging and serology studies. I agree with the above assessment and plan. Please refer to consult note --------- I (Serafin Taylor) personally supervised the resident/fellow in the evaluation and development of a treatment plan for this patient including using nursing/ems notes. I personally discussed the review of systems and interviewed the patient along with performing a physical examination. In addition, I discussed the patient's condition and treatment options with them. I have also reviewed and agree with the past medical, family and social history unless otherwise noted and personally reviewed the imaging and labs. This note may be a delayed entry. All of the patient's questions were answered. The patient was seen and examined independently and relevant data reviewed by myself. A full chart review was performed. documented in this encounter [facility] 04-11-2024 Note Formatting of this n ote might be different from the original. TCC informed SW, Pt in need of establishing PCP SW met w /Pt, introduced self, explained role, and inquired upon possible need for supports or community resources. SW addressed SDOH listed. Pt reported she lives alone, struggles with not having enough money for rent and gas for her car. Pt stated she is currently up to date on rent and has no disconnection notice for utilities. Pt stated her co-worker gave her a list of community resources, declined need for additional resources. Pt reported need to establish PCP. SW gave Pt list of [employer] Medicaid PCP providers within 5 miles from her home. List was obtained from [facility] Medicaid website. SW referred Pt to contact providers to ensure list is accurate. Pt thanked WILBUR and reported no other needs at this time. [facility] 04-11-2024 Note Formatting of this n ote might be different from the original. TCC informed SW, Pt in need of establishing PCP SW met w /Pt, introduced self, explained role, and inquired upon possible need for supports or community resources. SW addressed SDOH listed. Pt reported she lives alone, struggles with not having enough money for rent and gas for her car. Pt stated she is currently up to date on rent and has no disconnection notice for utilities. Pt stated her co-worker gave her a list of community resources, declined need for additional resources. Pt reported need to establish PCP. SW gave Pt list of [employer] Medicaid PCP providers within 5 miles from her home. List was obtained from [facility] Medicaid website. SW referred Pt to contact providers to ensure list is accurate. Pt thanked WILBUR and reported no other needs at this time. T [facility] 04-11-2024 Note Formatting of this n ote might be different from the original. Care Managment Initial Assessment Date: 04/11/2024 Patient Name: Mel Wall : 1985 Patient Information Source of Information: Patient Cognition/Language: WFL - Within Functional Limits Permission given to speak with patient loan representative/caregiver as indicated: Yes Confirmation of Payer with patient/family: Yes Payer Name: [facility] MEDICAID/ : No Confirmation of Primary Care Physician: No PCP (SW notified) Primary Caregiver: Self If assistance needed, confirmed caregiver ready, willing and able to care for patient at discharge: Confirmed with: Living Arrangements Current Residence: Apartment Number of Floors 1 Number of Entry Steps: 5 or more (flight) Bed/Bath Levels: Both first floor Facility: Facility Name: Plan to Return: Lives with: Alone Support Systems: Family members Activities of Daily Living Ambulation: Independent Bathing/Dressing: Independent Elimination/Continence/Toileting: Independent Feeding: Independent Who Assists with Activities of Daily Living: Instrumental Activities of Daily Living Prescription Coverage: Yes Pharmacy Used: [facility] in [place] Medication Management: Independent Transportation/Shopping: Independent Transportation Mode: Car Needs Assistance with Transportation at Discharge: No Meal Preparation: Independent Laundry/Cleaning: Independent Finances/Bill Paying: Independent Communication: Independent Types of Care Services/Equipment Utilized Care Services: Dialysis Type: Durable Medical Equipment: (denies DME) Patient's Goal/Discharge Plan Patient expects to be discharged to: home Discharge Planning Actions: Continue to follow Patient's Choice Rights and [employer] and Collaborative Relationships Disclosed as Indicated for Post-Acute Care: Interdisciplinary Team Engagement: Social Work Referral for: Additional Information: Met with patient at bedside - reviewed discharge plan, introduced self and role. Patient from home independent-alone. Patient states has insurance and able to afford medications. Family will provide transportation home. Plan -Home - when medically stable. [facility] 04-11-2024 Note Formatting of this n ote might be different from the original. Care Managment Initial Assessment Date: 04/11/2024 Patient Name: Mel Wall : 1985 Patient Information Source of Information: Patient Cognition/Language: WFL - Within Functional Limits Permission given to speak with patient loan representative/caregiver as indicated: Yes Confirmation of Payer with patient/family: Yes Payer Name: [facility] MEDICAID/ : No Confirmation of Primary Care Physician: No PCP (SW notified) Primary Caregiver: Self If assistance needed, confirmed caregiver ready, willing and able to care for patient at discharge: Confirmed with: Living Arrangements Current Residence: Apartment Number of Floors 1 Number of Entry Steps: 5 or more (flight) Bed/Bath Levels: Both first floor Facility: Facility Name: Plan to Return: Lives with: Alone Support Systems: Family members Activities of Daily Living Ambulation: Independent Bathing/Dressing: Independent Elimination/Continence/Toileting: Independent Feeding: Independent Who Assists with Activities of Daily Living: Instrumental Activities of Daily Living Prescription Coverage: Yes Pharmacy Used: [facility] in [place] Medication Management: Independent Transportation/Shopping: Independent Transportation Mode: Car Needs Assistance with Transportation at Discharge: No Meal Preparation: Independent Laundry/Cleaning: Independent Finances/Bill Paying: Independent Communication: Independent Types of Care Services/Equipment Utilized Care Services: Dialysis Type: Durable Medical Equipment: (denies DME) Patient's Goal/Discharge Plan Patient expects to be discharged to: home Discharge Planning Actions: Continue to follow Patient's Choice Rights and [employer] and Collaborative Relationships Disclosed as Indicated for Post-Acute Care: Interdisciplinary Team Engagement: Social Work Referral for: Additional Information: Met with patient at bedside - reviewed discharge plan, introduced self and role. Patient from home independent-alone. Patient states has insurance and able to afford medications. Family will provide transportation home. Plan -Home - when medically stable. [facility] 04-10-2024 History and physical note Seen General surgery consult from same date for H and P info. Jie Arevalo MD PGY5, General Surgery Pager #[phone] [facility] [employer] Work Phone: 04-10-2024 History and physical note Seen General surgery consult from same date for H and P info. Jie Arevalo MD PGY5, General Surgery Pager #[phone] documented in this encounter [facility] 04-10-2024 Emergency department Note Patient refusing NG tube at this time. Attempted to educate patient on rationale for NG patient stated she knew what its for because she has had them before. Patient confirmed that she still was NOT passing gas/stool yet. Milagro Ignacio RN 04/10/24 1502 [facility] 04-10-2024 Emergency department Note Patient refusing NG tube at this time. Attempted to educate patient on rationale for NG patient stated she knew what its for because she has had them before. Patient confirmed that she still was NOT passing gas/stool yet. Milagro Ignacio RN 04/10/24 1502 Pt being transferred to [facility] ED via [facility]. Handoff report given to transportation project manager. Report was called to ED, Karis SALAZAR. Pt's belongings sent with pt in ambulance, car keys left with protective services for family mbr to pickup driver her vehicle. Donald Hogan RN 04/10/24 1234 [facility] EMERGENCY DEPT EMERGENCY DEPARTMENT ENCOUNTER Pt Name: Mel Wall Birthdate 1985 Date of evaluation: 04/10/2024 Provider: Shaista Ahn MD CHIEF COMPLAINT Chief Complaint Patient presents with Abdominal Pain Abd hernia HISTORY OF PRESENT ILLNESS (Location/Symptom, Timing/Onset, Context/Setting, Quality, Duration, Modifying Factors, Severity) Note limiting factors. I wore a surgical mask for the entirety of this encounter. Mel Wall is a 38 y.o. female with a complex past surgical history including appendectomy, cholecystectomy, prior gastric sleeve surgery with recurrent incisional hernia and several repeated mesh repairs presenting with recurrent abdominal pain, nausea, vomiting. Says she struggled with this many times in the last few months, this recurrent episode started overnight, she has had quite a bit of pain, nausea and emesis. She denies being able to have stool for the past 48 hours or so and cannot member the last time she passed gas. Denies any urinary symptoms. Prior to constipation she had normal stools with no blood. Denies fever, chills, cough, congestion or any other symptoms. Review of systems otherwise negative. Past Medical history reviewed. REVIEW OF SYSTEMS Negative except for above HPI Review of Systems PAST MEDICAL HISTORY Past Medical History: Diagnosis Date Anxiety Bile reflux gastritis Bipolar affective (HCC) Depression Morbid obesity, unspecified obesity type (HCC) SURGICAL HISTORY Past Surgical History: Procedure Laterality Date APPENDECTOMY BILIOPANCREATIC DIVERSION 10/23/2008 Sherie @ [place]; janel-en-y duodenojejunostomy for bile reflux CHOLECYSTECTOMY 02/2007 lap COLONOSCOPY N/A 11/29/2023 Miranda; repeat in 11/2033 EXPLORATORY LAPAROTOMY 06/10/2019 Veronica @ [facility]; ex lap, WAI INCISION AND DRAINAGE OF WOUND 08/09/2013 [place]; I&D of surgical incision of LLQ INCISIONAL HERNIA REPAIR 10/20/2017 [place]; open primary repair INCISIONAL HERNIA REPAIR 07/12/2018 [place]; open w/ mesh INCISIONAL HERNIA REPAIR 09/26/2018 [place]; lap w/ mesh INCISIONAL HERNIA REPAIR 03/11/2020 ; repair w/ mesh excision, mesh replacement, WAI INCISIONAL HERNIA REPAIR 07/19/2015 [place]; open repair w/ mesh SOFT TISSUE MASS EXCISION 08/02/2013 [place]; STM excision of LLQ TONSILLECTOMY CURRENT MEDICATIONS Previous Medications ACETAMINOPHEN (TYLENOL) 325 MG TABLET Take 650 mg by mouth every 6 hours as needed for mild pain (1-3), moderate pain (4-6), headaches or fever. ALBUTEROL 108 (90 BASE) MCG/ACT INHALER Inhale 2 puffs every 4 hours as needed for wheezing or shortness of breath. METFORMIN XR (GLUCOPHAGE-XR) 500 MG 24 HR TABLET Take 1 tablet (500 mg) by mouth with evening meal. PHENTERMINE (ADIPEX-P) 37.5 MG TABLET Take 1 tablet (37.5 mg) by mouth every morning (before breakfast). PHENTERMINE (ADIPEX-P) 37.5 MG TABLET Take 1 tablet (37.5 mg) by mouth every morning (before breakfast). PHENTERMINE (ADIPEX-P) 37.5 MG TABLET Take 1 tablet (37.5 mg) by mouth every morning (before breakfast). PROMETHAZINE (PHENERGAN) 25 MG SUPPOSITORY Insert 1 suppository (25 mg) into the rectum every 6 hours as needed for vomiting. ALLERGIES Ketorolac and Ondansetron FAMILY HISTORY Family History Problem Relation Name Age of Onset Hypertension Father Diabetes Father SOCIAL HISTORY Social History Socioeconomic History Marital status: Single Tobacco Use Smoking status: Former Types: Cigarettes Smokeless tobacco: Never Substance and Sexual Activity Alcohol use: Not Currently Drug use: Yes Frequency: 2.0 times per week Types: Marijuana Sexual activity: Not Currently Social Determinants of Health Financial Resource Strain: Medium Risk (03/11/2023) Received from [facility] Overall Financial Resource Strain (CARDIA) Difficulty of Paying Living Expenses: Somewhat hard Food Insecurity: Food Insecurity Present (03/11/2023) Received from [facility] Hunger Vital Sign Worried About Running Out of Food in the Last Year: Sometimes true Ran Out of Food in the Last Year: Sometimes true Transportation Needs: No Transportation Needs (10/19/2023) PRAPARE - Transportation Lack of Transportation (Medical): No Lack of Transportation (Non-Medical): No Physical Activity: Insufficiently Active (08/05/2020) Received from [facility] Exercise Vital Sign Days of Exercise per Week: 4 days Minutes of Exercise per Session: 30 min Stress: Stress Concern Present (08/05/2020) Received from [facility] [place] [facility] [employer] - Occupational Stress Questionnaire Feeling of Stress : Rather much Social Connections: Unknown (08/05/2020) Received from [facility] Social Connection and Isolation Panel [NHANES] Frequency of Communication with Friends and Family: Three times a week Frequency of Social Gatherings with Friends and Family: Once a week Attends [employer] Services: More than 4 times per year Housing Stability: Low Risk (10/19/2023) Housing Stability Vital Sign Unable to Pay for Housing in the Last Year: No Number of Places Lived in the Last Year: 1 Unstable Housing in the Last Year: No SCREENINGS PHYSICAL EXAM (up to 7 for level 4, 8 or more for level 5) @EDTRIAGEVSS@ Physical Exam Vitals and nursing note reviewed. Constitutional: General: She is not in acute distress. Appearance: Normal appearance. HENT: Head: Normocephalic and atraumatic. Nose: Nose normal. Eyes: Conjunctiva/sclera: Conjunctivae normal. Cardiovascular: Rate and Rhythm: Normal rate. Pulmonary: Effort: Pulmonary effort is normal. No respiratory distress. Abdominal: General: Abdomen is flat. There is no distension. Tenderness: There is abdominal tenderness (Large but soft ventral incisional hernia, chronic overlying skin changes but no acute redness, induration, warmth, bruising). Skin: General: Skin is warm and dry. Capillary Refill: Capillary refill takes less than 2 seconds. Neurological: Mental Status: She is alert. Psychiatric: Behavior: Behavior normal. EMERGENCY DEPARTMENT COURSE and DIFFERENTIAL DIAGNOSIS/MDM: Vitals: Vitals: 04/10/24 0734 04/10/24 0904 04/10/24 1056 BP: 133/68 121/78 134/79 Pulse: (!) 121 102 103 Resp: 18 18 18 Temp: 36.8 C (98.2 F) TempSrc: Temporal SpO2: 100% 98% 98% Weight: 111 kg (245 lb) Medications potassium chloride IVPB 10 mEq (10 mEq IntraVENous New Bag 04/10/24 1056) sodium chloride 0.9 % bolus 1,000 mL (1,000 mL IntraVENous New Bag 04/10/24 1124) sodium chloride 0.9 % bolus 1,000 mL (has no administration in time range) promethazine (Phenergan) injection 6.25 mg (6.25 mg IntraMUSCular Given 04/10/24 0750) sodium chloride 0.9 % bolus 1,000 mL (0 mL IntraVENous Stopped 04/10/24 1058) HYDROmorphone (Dilaudid) injection 1 mg (1 mg IntraVENous Given 04/10/24 0808) HYDROmorphone (Dilaudid) injection 1 mg (1 mg IntraVENous Given 04/10/24 0903) promethazine (Phenergan) injection 6.25 mg (6.25 mg IntraMUSCular Given 04/10/24 1122) HYDROmorphone (Dilaudid) injection 1 mg (1 mg IntraVENous Given 04/10/24 1149) Medical Decision Making ADDITIONAL MEDICAL DESICION MAKING IS DOCUMENTED IN THE ED COURSE. PLEASE REFER TO ED COURSE. Mel Wall is a 38 y.o. female with a complex past surgical history including appendectomy, cholecystectomy, prior gastric sleeve surgery with recurrent incisional hernia and several repeated mesh repairs presenting with recurrent abdominal pain, nausea, vomiting. Says she struggled with this many times in the last few months, this recurrent episode started overnight, she has had quite a bit of pain, nausea and emesis. She denies being able to have stool for the past 48 hours or so and cannot member the last time she passed gas. Denies any urinary symptoms. Prior to constipation she had normal stools with no blood. Denies fever, chills, cough, congestion or any other symptoms. Review of systems otherwise negative. On physical exam: Large but soft ventral incisional hernia, chronic overlying skin changes but no acute redness, induration, warmth, bruising Differential diagnoses considered include: Plan: cbc, cmp, phenergan, iv fluids, lactic, ct abdomen pelvis w/ iv and oral contrast External records reviewed: I reviewed the progress note from general surgery following up for nonsurgical weight loss plan, 04/03/2024, I also reviewed various progress notes from this clinic and others detailing patient's intermittent recurrent abdominal pain and nausea Discussions with other clinicians: ED Dr. Borjas, Bariatric Surgery Dr. Taylor Chronic conditions impacting care: Para-incisional hernia Problems Addressed: Generalized abdominal pain: complicated acute illness or injury Amount and/or Complexity of Data Reviewed Labs: ordered. Decision-making details documented in ED Course. Radiology: ordered. Decision-making details documented in ED Course. Risk Prescription drug management. All independent interpretations of EKGs are documented in [facility]. ED Course as of 04/10/24 1508 Tue Apr 10, 2024 0911 MAGNESIUM: 1.9 [BJ] 0911 LIPASE: 63 [BJ] 0911 Creatinine(!): 0.49 [BJ] 0911 RBC: 4.40 [BJ] 0911 Auto WBC: 4.4 [BJ] 1107 CT abdomen pelvis w contrast [BJ] 1153 Workup concerning for mildly low bicarb and potassium likely due to GI losses and a mildly elevated lactic. No white count noted. Will repeat lactic, potassium was repleted IV. Patient's symptoms recurred so pain medications and antiemetic Phenergan redosed. Will also redosed IV fluids. I spoke with Dr. Morris who accepts patient for ED to ED transfer. [BJ] ED Course User Index [BJ] Shaista Ahn MD Diagnoses as of 04/10/24 1508 Generalized abdominal pain Partial small bowel obstruction (HCC) Ventral hernia with obstruction and without gangrene CONSULTS: None PROCEDURES: Unless otherwise noted below, none Procedures FINAL IMPRESSION 1. Generalized abdominal pain DISPOSITION/PLAN DISPOSITION Transfer To [facility] Ed 04/10/2024 11:50:20 AM PATIENT REFERRED TO: No follow-up provider specified. DISCHARGE MEDICATIONS: New Prescriptions No medications on file @[facility]([id number]:LAST:1)@ (Please note: Portions of this note were completed with a voice recognition program. Efforts were made to edit the dictations but occasionally words and phrases are mis-transcribed.) Form [id number] Shaista Ahn MD (electronically signed) Emergency Medicine Provider Shaista Ahn MD 04/10/24 1155 Emergency Department Encounter Location: [facility] EMERGENCY DEPT Patient: Mel Wall : 1985 Date of evaluation: 04/10/2024 ED Provider: Patricia Comer MD Time received sign-out: 1115 Mel Wall was checked out to me by Dr. Ahn. Please see his/her initial documentation for details of the patient's initial ED presentation, physical exam and completed studies. I did perform a substantive portion of the visit including all aspects of the Medical Decision Making. In brief, Mel Wall is a 38 y.o. female that presented to the emergency department for abdominal pain. I have reviewed and interpreted all of the currently available lab results and diagnostics from this visit: Results for orders placed or performed during the hospital encounter of 04/10/24 CBC auto differential Result Value Ref Range Auto WBC 4.4 3.6 - 10.7 10*3/uL RBC 4.40 3.80 - 5.20 10*6/uL Hemoglobin 13.7 11.7 - 16.0 g/dL Hematocrit 40.7 35.0 - 47.0 % MCV 92.5 77.0 - 99.0 fL MCH 31.1 26.0 - 34.0 pg MCHC 33.7 30.5 - 36.0 % RDW 12.7 11.5 - 15.0 % Platelets 221 140 - 440 10*3/uL MPV 8.7 (L) 9.0 - 12.7 fL nRBC 0.0 0.0 - 2.0 /100 WBCs Neutrophils Relative 55.2 38.0 - 82.0 % Lymphocytes Relative 34.7 15.0 - 45.0 % Monocytes Relative 6.9 5.0 - 13.0 % Eosinophils Relative 2.5 0.0 - 6.0 % Basophils Relative 0.5 0.0 - 2.0 % Immature Grans % 0.2 0.0 - 2.0 % Neutrophils Absolute 2.4 1.8 - 7.5 10*3/uL Lymphocytes Absolute 1.5 1.0 - 4.3 10*3/uL Monocytes Absolute 0.3 0.0 - 0.9 10*3/uL Eosinophils Absolute 0.1 0.0 - 0.5 10*3/uL Basophils Absolute 0.0 0.0 - 0.2 10*3/uL Immature Grans Absolute 0.0 <0.1 10*3/uL Comprehensive metabolic panel Result Value Ref Range SODIUM 139 135 - 145 mmol/L POTASSIUM 2.9 (L) 3.5 - 5.1 mmol/L CHLORIDE 110 (H) 98 - 107 mmol/L CARBON DIOXIDE 20 (L) 22 - 30 mmol/L ANION GAP 8 3 - 13 mmol/L UREA NITROGEN 4 (L) 7 - 17 mg/dL CREATININE 0.49 (L) 0.52 - 1.04 mg/dL GLUCOSE 163 (H) 70 - 100 mg/dL CALCIUM 9.0 8.4 - 10.4 mg/dL AST (SGOT) 20 15 - 46 U/L ALT 17 0 - 34 U/L ALKALINE PHOSPHATASE 46 38 - 126 U/L ALBUMIN 4.2 3.5 - 5.0 g/dL BILIRUBIN, TOTAL 0.6 0.2 - 1.3 mg/dL TOTAL PROTEIN 6.8 6.3 - 8.2 g/dL eGFR >90.0 >60.0 mL/min/1.73m*2 Lipase Result Value Ref Range LIPASE 63 23 - 300 U/L Lactic acid with reflex Result Value Ref Range LACTIC ACID 2.6 (H) 0.7 - 2.0 mmol/L Lactic acid with reflex Result Value Ref Range LACTIC ACID 2.7 (H) 0.7 - 2.0 mmol/L Magnesium Result Value Ref Range MAGNESIUM 1.9 1.6 - 2.3 mg/dL Final ED Course and MDM: In brief, Mel Wall is a 38 y.o. female whose care was signed out to me by the outgoing provider. In brief, presented to [facility] ED for abdominal pain, nausea, emesis that started overnight and states that she has not had a bowel movement in 48 hours. Has a history of appendectomy, cholecystectomy, sleeve gastrectomy. Was evaluated at [facility] ED where she was found to have a ventral hernia with a dilated loop of bowel concerning for at least partial small bowel obstruction. This was discussed with Dr. Taylor by the previous provider, and he recommended ED to ED transfer for surgical evaluation. On arrival patient is still symptomatic. She was given pain control. Surgery was called to assess the patient presented to bedside. Final disposition is pending but anticipate admission to surgery for serial exams and labs. Patient is agreeable with plan for admission to the hospital. Medications potassium chloride IVPB 10 mEq (10 mEq IntraVENous Not Given 04/10/24 1433) oxymetazoline (Afrin) 0.05 % nasal spray 2 spray (has no administration in time range) lidocaine (Uro-Jet) 2 % gel (has no administration in time range) morphine injection 4 mg (has no administration in time range) promethazine (Phenergan) injection 6.25 mg (6.25 mg IntraMUSCular Given 04/10/24 0750) sodium chloride 0.9 % bolus 1,000 mL (0 mL IntraVENous Stopped 04/10/24 1058) HYDROmorphone (Dilaudid) injection 1 mg (1 mg IntraVENous Given 04/10/24 0808) HYDROmorphone (Dilaudid) injection 1 mg (1 mg IntraVENous Given 04/10/24 0903) promethazine (Phenergan) injection 6.25 mg (6.25 mg IntraMUSCular Given 04/10/24 1122) HYDROmorphone (Dilaudid) injection 1 mg (1 mg IntraVENous Given 04/10/24 1149) sodium chloride 0.9 % bolus 1,000 mL (0 mL IntraVENous Stopped 04/10/24 1232) sodium chloride 0.9 % bolus 1,000 mL (0 mL IntraVENous Stopped 04/10/24 1358) HYDROmorphone (Dilaudid) injection 0.5 mg (0.5 mg IntraVENous Given 04/10/24 1314) Final Impression 1. Generalized abdominal pain 2. Partial small bowel obstruction (HCC) 3. Ventral hernia with obstruction and without gangrene DISPOSITION Admit 04/10/2024 03:07:42 PM (Please note that portions of this note may have been completed with a voice recognition program. Efforts were made to edit the dictations but occasionally words are mis-transcribed.) MD Patricia Hagen MD Resident 04/10/24 1509 Emergency Department Encounter [facility] EMERGENCY DEPT Patient: Mel Wall : 1985 Date of Evaluation: 04/10/2024 ED Supervising Physician: Gemma Menezes DO I personally evaluated Mel Wall and made/approved the management plan and take responsibility for the patient management. This will serve as my Supervisory note and shared attestation. I did perform a substantive portion of the visit including all aspects of the Medical Decision Making. I wore appropriate PPE for the entirety of this encounter. In brief, Mel Wall is a 38 y.o. that presents to the emergency department for surgical evaluation from an outlying facility due to a partial small bowel obstruction. Has a large ventral hernia with a dilated loop of bowel. Contrast did make it through the bowel but it was delayed hence the radiographic diagnosis of partial small bowel obstruction. Focused exam: Vital signs noted. Well-appearing patient lying in bed, normal respiratory pattern without conversational dyspnea or respiratory distress. Normal speech and mental status. Large ventral hernia noted with moderate tenderness to palpation. No peritonitis. Brief ED course/MDM: Surgical consultation in the emergency department, disposition in collaboration with them. Diagnostics interpreted by me: I personally discussed the patient's management with other clinicians: All diagnostic, treatment, and disposition decisions were made by myself in conjunction with the Resident. I also supervised solares portions of any procedures performed by the Resident. For all further details of the patient's emergency department visit, please see their documentation. (Comment: Please note this report has been produced using speech recognition software and may contain errors related to that system including errors in grammar, punctuation, and spelling, as well as words and phrases that may be inappropriate. If there are any questions or concerns please feel free to contact the dictating provider for clarification.) Gemma Menezes DO [employer] Gemma Menezes DO 04/10/24 1322 documented in this encounter [facility] 04-10-2024 Consult note Formatting of th is note is different from the original. Images from the original note were not included. Department of General Surgery Surgical Service - Surg 4 Resident Consult Note 04/10/2024 CHIEF COMPLAINT: Generalized abdominal pain and fullness with N/V Chief Complaint Patient presents with Abdominal Pain Abd hernia Reason for Consult: Known ventral hernia, with recent abdominal pain with N/V (non-bloody) and CT concerning for partial SBO HISTORY OF PRESENT ILLNESS: Mel Wall is a 38 y.o. female with significant past medical history of recurrent ventral, incisional hernia s/p duodenal switch (2008) who presents with increasing abdominal pain with obstipation since 2199 (04/09). Patient states Her pain and fullness began 2200 (04/09) and has been increasing in intensity since. At 0600 (04/10) it became too much and patient presented to [facility]. She arrived here via ED to ED transfer for concern of partial/SBO. Pt states her last BM was two days ago, with some flatus yesterday before the pain but no flatus/BM since. On evaluation patient was in discomfort. Found to have a large ventral hernia to the right of midline that was soft and compressible. Labs reviewed significant for: Hypokalemia 2.9 which was repleted by ED, along with an up trending lactate at 2.7 (2.6). Imaging demonstrated mildly dilated loop of small bowel 3.6 cm in diameter continuing into the ventral hernia, containing multiple loops of small bowel, cecum, ascending colon, and transverse colon. Past Medical History: Diagnosis Date Anxiety Bile reflux gastritis Bipolar affective (HCC) Depression Morbid obesity, unspecified obesity type (HCC) Past Surgical History: Procedure Laterality Date APPENDECTOMY BILIOPANCREATIC DIVERSION 10/23/2008 Sherie @ [facility]; janel-en-y duodenojejunostomy for bile reflux CHOLECYSTECTOMY 02/2007 lap COLONOSCOPY N/A 11/29/2023 [facility]; repeat in 11/2033 EXPLORATORY LAPAROTOMY 06/10/2019 Veronica @ [facility]; ex lap, WAI INCISION AND DRAINAGE OF WOUND 08/09/2013 [place]; I&D of surgical incision of LLQ INCISIONAL HERNIA REPAIR 10/20/2017 [facility]; open primary repair INCISIONAL HERNIA REPAIR 07/12/2018 [facility]; open w/ mesh INCISIONAL HERNIA REPAIR 09/26/2018 [facility]; lap w/ mesh INCISIONAL HERNIA REPAIR 03/11/2020 [facility]; repair w/ mesh excision, mesh replacement, WAI INCISIONAL HERNIA REPAIR 07/19/2015 [facility]; open repair w/ mesh SOFT TISSUE MASS EXCISION 08/02/2013 [facility]; STM excision of LLQ TONSILLECTOMY Medications Prior to Admission: Current Facility-Administered Medications Medication Dose Route Frequency Provider Last Rate Last Admin sodium chloride 0.9 % bolus 1,000 mL 1,000 mL IntraVENous Once Shaista Ahn MD 1,000 mL/hr at 04/10/24 1258 1,000 mL at 04/10/24 1258 Current Outpatient Medications Medication Sig Dispense Refill acetaminophen (Tylenol) 325 MG tablet Take 650 mg by mouth every 6 hours as needed for mild pain (1-3), moderate pain (4-6), headaches or fever. albuterol 108 (90 Base) MCG/ACT inhaler Inhale 2 puffs every 4 hours as needed for wheezing or shortness of breath. metFORMIN XR (Glucophage-XR) 500 MG 24 hr tablet Take 1 tablet (500 mg) by mouth with evening meal. 30 tablet 2 phentermine (Adipex-P) 37.5 MG tablet Take 1 tablet (37.5 mg) by mouth every morning (before breakfast). 30 tablet 0 phentermine (Adipex-P) 37.5 MG tablet Take 1 tablet (37.5 mg) by mouth every morning (before breakfast). 30 tablet 0 phentermine (Adipex-P) 37.5 MG tablet Take 1 tablet (37.5 mg) by mouth every morning (before breakfast). 30 tablet 0 promethazine (Phenergan) 25 MG suppository Insert 1 suppository (25 mg) into the rectum every 6 hours as needed for vomiting. 12 each 0 Allergies: Ketorolac and Ondansetron Social History Socioeconomic History Marital status: Single Tobacco Use Smoking status: Former Types: Cigarettes Smokeless tobacco: Never Substance and Sexual Activity Alcohol use: Not Currently Drug use: Yes Frequency: 2.0 times per week Types: Marijuana Sexual activity: Not Currently Social Determinants of Health Financial Resource Strain: Medium Risk (03/11/2023) Received from [facility] Overall Financial Resource Strain (CARDIA) Difficulty of Paying Living Expenses: Somewhat hard Food Insecurity: Food Insecurity Present (03/11/2023) Received from [facility] Hunger Vital Sign Worried About Running Out of Food in the Last Year: Sometimes true Ran Out of Food in the Last Year: Sometimes true Transportation Needs: No Transportation Needs (10/19/2023) PRAPARE - Transportation Lack of Transportation (Medical): No Lack of Transportation (Non-Medical): No Physical Activity: Insufficiently Active (08/05/2020) Received from [facility] Exercise Vital Sign Days of Exercise per Week: 4 days Minutes of Exercise per Session: 30 min Stress: Stress Concern Present (08/05/2020) Received from [facility] [place] of Occupational Health - Occupational Stress Questionnaire Feeling of Stress : Rather much Social Connections: Unknown (08/05/2020) Received from [facility] Social Connection and Isolation Panel [NHANES] Frequency of Communication with Friends and Family: Three times a week Frequency of Social Gatherings with Friends and Family: Once a week Attends [employer] Services: More than 4 times per year Housing Stability: Low Risk (10/19/2023) Housing Stability Vital Sign Unable to Pay for Housing in the Last Year: No Number of Places Lived in the Last Year: 1 Unstable Housing in the Last Year: No Family History Problem Relation Name Age of Onset Hypertension Father Diabetes Father REVIEW OF SYSTEMS: Review of Systems Constitutional: Negative for chills, diaphoresis, fever and unexpected weight change. Respiratory: Negative for shortness of breath. Gastrointestinal: Positive for abdominal distention, abdominal pain, constipation, nausea and vomiting. Negative for blood in stool and diarrhea. Endocrine: Negative for polydipsia and polyuria. Genitourinary: Negative for pelvic pain. Musculoskeletal: Negative for back pain and myalgias. PHYSICAL EXAM: Vitals: 04/10/24 1258 BP: 135/71 Pulse: 95 Resp: 20 Temp: 37.1 C (98.7 F) SpO2: 99% No intake/output data recorded. CONSTITUTIONAL: awake, alert, cooperative, no apparent distress NECK: Supple, symmetrical, trachea midline, no adenopathy LUNGS: No increased work of breathing, good air exchange CARDIOVASCULAR: Regular rate and rhythm ABDOMEN: Large ventral hernia in the rid mid/RLQ, approximately 15 cm. Soft and Compressible. TTP. Hypoactive bowel sounds. No skin changes over hernia, no erythema or excess warmth. CHEST: no masses palpated, no axillary or supraclavicular adenopathy GENITAL/URINARY: Not examined MUSCULOSKELETAL: There is no redness, warmth, or swelling of the joints. Full range of motion noted. NEUROLOGIC: Awake, alert, oriented to name, place and time. SKIN: normal skin color, texture, no redness, warmth, or swelling DATA: CBC: Lab Results Component Value Date WBC 4.4 04/10/2024 RBC 4.40 04/10/2024 HGB 13.7 04/10/2024 HCT 40.7 04/10/2024 MCV 92.5 04/10/2024 MCH 31.1 04/10/2024 MCHC 33.7 04/10/2024 RDW 12.7 04/10/2024 PLT 221 04/10/2024 MPV 8.7 (L) 04/10/2024 BMP: Lab Results Component Value Date NA 139 04/10/2024 K 2.9 (L) 04/10/2024 CL 110 (H) 04/10/2024 CO2 20 (L) 04/10/2024 BUN 4 (L) 04/10/2024 CREATININE 0.49 (L) 04/10/2024 CALCIUM 9.0 04/10/2024 GLUCOSE 163 (H) 04/10/2024 Hepatic Function Panel: Lab Results Component Value Date ALKPHOS 46 04/10/2024 ALT 17 04/10/2024 AST 20 04/10/2024 PROT 6.8 04/10/2024 BILITOT 0.6 04/10/2024 PT/INR: No results found for: PROTIME, INR Troponin: No results found for: TROPONINI LIPASE: Lab Results Component Value Date LIPASE 63 04/10/2024 IMAGING: CT abdomen pelvis w contrast Narrative: [facility]ALL [facility] 1985 [id number] Exam Date/Time: 04/10/2024 10:09 Procedure: CT ABDOMEN PELVIS W CONTRAST Ordering Provider: AHN BETHANY Reason For Exam: Bowel obstruction suspected CT ABDOMEN AND PELVIS Indication: 38-year-old female; bowel obstruction suspected; nonfocal abdominal pain since 3:00am with nausea and vomiting; surgical history includes appendectomy and cholecystectomy and hernia repair Scan Parameters: Multiple axial CT images were obtained of the abdomen and pelvis. Coronal and sagittal reconstructions were reviewed as well. ALARA protocol. Dose reduction was employed with automated exposure control. Contrast: 75 mL of Isovue-370 IV contrast; no oral contrast Comparison: 11/13/2023 and 09/13/2023 FINDINGS: Lung bases: The lung bases are clear. Heart: The heart is not enlarged. There is no pericardial effusion. Osseous structures: There is a stable 12 mm sclerotic lesion of the T9 vertebral body, unchanged from 09/13/2023. Liver: The hepatic contour is unremarkable. Gallbladder/Biliary tree: No biliary dilatation. The gallbladder is absent. Spleen: The spleen measures upper limits of normal in size. Adrenals: Mild left adrenal gland hyperplasia. Pancreas: Normal. Kidneys/Bladder: Bilateral renal cysts are present, no follow-up necessary. There is no hydronephrosis. A punctate nonobstructive right renal calculi are present. The bladder contour is normal. Adnexa: The uterus is anteverted. Bilateral ovarian follicular cystic changes are present. Bilateral fallopian tube clips noted. Hernias and GI tract: There is a large wide neck ventral hernia (10 cm neck axial) which contains multiple loops of small and large bowel as well as portions of the stomach. There is no stranding in the fat and there is no significant bowel distention within the hernia. The appendix is surgically absent. Fecal retention is present. The transverse colon, ascending colon, and cecum are present within the large hernia. There are multiple loops of decompressed small bowel within the large hernia some of which contain GI contrast and some of which do not. Contrast is present within the stomach and duodenum as well as multiple loops of proximal small bowel. There is a mildly dilated loop of small bowel at the midline measuring 3.6 cm in diameter. This bowel loop continues into the large ventral hernia and is decompressed the site of entry point. Peritoneal Cavity/Retroperitoneum: No lymphadenopathy. Vasculature: There is no significant atherosclerotic disease. Impression: There is a mildly dilated loop of small bowel at the midline measuring 3.6 cm in diameter. This bowel loop continues into the large ventral hernia and is decompressed at the site of entry point. The large wide neck ventral hernia contains multiple loops of decompressed small bowel as well as the cecum, ascending colon, and transverse colon. Findings are concerning for least partial bowel obstruction. Right renal nephrolithiasis. No obstructive uropathy. Bilateral renal cysts. Additional findings, as above. Report Dictated on Electronically Signed By: Michelle Velazquez MD Electronically Signed Date/Time: 04/10/2024 10:21 AM EDT ASSESSMENT AND PLAN: This is a 38 y.o. female with recent EGD (11/29/23) suggestive of hepatic flexure mobilization after duodenal switch now presents with increasing generalized abdominal pain in the setting of a large ventral hernia, obstipation, N/V, although imaging not convincing of an SBO. DDX includes SBO, incarcerated hernia, strangulation; however no peritoneal signs or signs of strangulation at this time Admit to general surgery - no acute surgical interventions at this time - NPO for bowel rest - NG decompression - KUB now repeat 2200 and AM 04/11 - No UGI at this time - enema for constipation - continue to trend lactate - electrolyte repletion (found to by hypokalemic on presentation) - parental nutrition as indicated Patient discussed with attending, Dr. Taylor. Scot Casanova MD General Surgery Resident, PGY-1 04/10/24 1:30 PM This note may have been dictated using [employer] Medical Practice Edition 2.6 and/or [employer] Voice Recognition Feature. The document was proofread; however, unrecognized voice recognition wood stock blank handler errors may be present. ATTESTATION The patient was seen and examined. I have reviewed the patients presentation, histories, imaging and serology studies. I agree with the above assessment and plan. Patient states that she is feeling better this morning. Distention is less. She denies nausea or vomiting. Laboratory values stable. Patient states that she has lost 10 pounds since starting her medical weight loss program. She is still not at her goal weight. KUB this morning revealed findings showing contrast into the descending colon. Patient denies flatus or bowel movement. Okay to start clear liquid diet and bowel regimen. No surgical intervention at this time. Will continue to follow. All the patient's questions were answered. --------- I personally performed the evaluation and management of Mel Wall in the development of a treatment plan for this patient. I personally interviewed the patient and performed an individual physical examination. In addition, I discussed the patient's condition and treatment options with them. I have also reviewed and agree with the past medical, family and social history unless otherwise noted. All of the patient's questions were answered. I personally spent 75 minutes of time between the face to face encounter, physical exam, reviewing the medical history, coordinating the patient's care, counseling/educating the patient, ordering prescriptions/medications/tests/proc edures, interpreting results and documenting clinical information in the patient's electronic health record on the day of the encounter. Patient Care Team: Fidus Writer [facility] (Inactive) as PCP - General Serafin Taylor DO as Surgeon (General Surgery) Fidus Writer [facility] 04-10-2024 Consult note Formatting of th is note is different from the original. Images from the original note were not included. Department of General Surgery Surgical Service - Surg 4 Resident Consult Note 04/10/2024 CHIEF COMPLAINT: Generalized abdominal pain and fullness with N/V Chief Complaint Patient presents with Abdominal Pain Abd hernia Reason for Consult: Known ventral hernia, with recent abdominal pain with N/V (non-bloody) and CT concerning for partial SBO HISTORY OF PRESENT ILLNESS: Mel Wall is a 38 y.o. female with significant past medical history of recurrent ventral, incisional hernia s/p duodenal switch (2008) who presents with increasing abdominal pain with obstipation since 2199 (04/09). Patient states Her pain and fullness began 2200 (04/09) and has been increasing in intensity since. At 0600 (04/10) it became too much and patient presented to [facility] ED. She arrived here via ED to ED transfer for concern of partial/SBO. Pt states her last BM was two days ago, with some flatus yesterday before the pain but no flatus/BM since. On evaluation patient was in discomfort. Found to have a large ventral hernia to the right of midline that was soft and compressible. Labs reviewed significant for: Hypokalemia 2.9 which was repleted by ED, along with an up trending lactate at 2.7 (2.6). Imaging demonstrated mildly dilated loop of small bowel 3.6 cm in diameter continuing into the ventral hernia, containing multiple loops of small bowel, cecum, ascending colon, and transverse colon. Past Medical History: Diagnosis Date Anxiety Bile reflux gastritis Bipolar affective (HCC) Depression Morbid obesity, unspecified obesity type (HCC) Past Surgical History: Procedure Laterality Date APPENDECTOMY BILIOPANCREATIC DIVERSION 10/23/2008 Sherie @ [place]; janel-en-y duodenojejunostomy for bile reflux CHOLECYSTECTOMY 02/2007 lap COLONOSCOPY N/A 11/29/2023 [facility]; repeat in 11/2033 EXPLORATORY LAPAROTOMY 06/10/2019 Veronica @ [facility]; ex lap, WAI INCISION AND DRAINAGE OF WOUND 08/09/2013 [facility]; I&D of surgical incision of LLQ INCISIONAL HERNIA REPAIR 10/20/2017 [facility]; open primary repair INCISIONAL HERNIA REPAIR 07/12/2018 [place]; open w/ mesh INCISIONAL HERNIA REPAIR 09/26/2018 [facility]; lap w/ mesh INCISIONAL HERNIA REPAIR 03/11/2020 ; repair w/ mesh excision, mesh replacement, WAI INCISIONAL HERNIA REPAIR 07/19/2015 [facility]; open repair w/ mesh SOFT TISSUE MASS EXCISION 08/02/2013 [place]; STM excision of LLQ TONSILLECTOMY Medications Prior to Admission: Current Facility-Administered Medications Medication Dose Route Frequency Provider Last Rate Last Admin sodium chloride 0.9 % bolus 1,000 mL 1,000 mL IntraVENous Once Shaista Ahn MD 1,000 mL/hr at 04/10/24 1258 1,000 mL at 04/10/24 1258 Current Outpatient Medications Medication Sig Dispense Refill acetaminophen (Tylenol) 325 MG tablet Take 650 mg by mouth every 6 hours as needed for mild pain (1-3), moderate pain (4-6), headaches or fever. albuterol 108 (90 Base) MCG/ACT inhaler Inhale 2 puffs every 4 hours as needed for wheezing or shortness of breath. metFORMIN XR (Glucophage-XR) 500 MG 24 hr tablet Take 1 tablet (500 mg) by mouth with evening meal. 30 tablet 2 phentermine (Adipex-P) 37.5 MG tablet Take 1 tablet (37.5 mg) by mouth every morning (before breakfast). 30 tablet 0 phentermine (Adipex-P) 37.5 MG tablet Take 1 tablet (37.5 mg) by mouth every morning (before breakfast). 30 tablet 0 phentermine (Adipex-P) 37.5 MG tablet Take 1 tablet (37.5 mg) by mouth every morning (before breakfast). 30 tablet 0 promethazine (Phenergan) 25 MG suppository Insert 1 suppository (25 mg) into the rectum every 6 hours as needed for vomiting. 12 each 0 Allergies: Ketorolac and Ondansetron Social History Socioeconomic History Marital status: Single Tobacco Use Smoking status: Former Types: Cigarettes Smokeless tobacco: Never Substance and Sexual Activity Alcohol use: Not Currently Drug use: Yes Frequency: 2.0 times per week Types: Marijuana Sexual activity: Not Currently Social Determinants of Health Financial Resource Strain: Medium Risk (03/11/2023) Received from [facility] Overall Financial Resource Strain (CARDIA) Difficulty of Paying Living Expenses: Somewhat hard Food Insecurity: Food Insecurity Present (03/11/2023) Received from [facility] Hunger Vital Sign Worried About Running Out of Food in the Last Year: Sometimes true Ran Out of Food in the Last Year: Sometimes true Transportation Needs: No Transportation Needs (10/19/2023) PRAPARE - Transportation Lack of Transportation (Medical): No Lack of Transportation (Non-Medical): No Physical Activity: Insufficiently Active (08/05/2020) Received from [facility] Exercise Vital Sign Days of Exercise per Week: 4 days Minutes of Exercise per Session: 30 min Stress: Stress Concern Present (08/05/2020) Received from [facility] of Occupational Health - Occupational Stress Questionnaire Feeling of Stress : Rather much Social Connections: Unknown (08/05/2020) Received from [facility], [facility] Social Connection and Isolation Panel [NHANES] Frequency of Communication with Friends and Family: Three times a week Frequency of Social Gatherings with Friends and Family: Once a week Attends Adventism Services: More than 4 times per year Housing Stability: Low Risk (10/19/2023) Housing Stability Vital Sign Unable to Pay for Housing in the Last Year: No Number of Places Lived in the Last Year: 1 Unstable Housing in the Last Year: No Family History Problem Relation Name Age of Onset Hypertension Father Diabetes Father REVIEW OF SYSTEMS: Review of Systems Constitutional: Negative for chills, diaphoresis, fever and unexpected weight change. Respiratory: Negative for shortness of breath. Gastrointestinal: Positive for abdominal distention, abdominal pain, constipation, nausea and vomiting. Negative for blood in stool and diarrhea. Endocrine: Negative for polydipsia and polyuria. Genitourinary: Negative for pelvic pain. Musculoskeletal: Negative for back pain and myalgias. PHYSICAL EXAM: Vitals: 04/10/24 1258 BP: 135/71 Pulse: 95 Resp: 20 Temp: 37.1 C (98.7 F) SpO2: 99% No intake/output data recorded. CONSTITUTIONAL: awake, alert, cooperative, no apparent distress NECK: Supple, symmetrical, trachea midline, no adenopathy LUNGS: No increased work of breathing, good air exchange CARDIOVASCULAR: Regular rate and rhythm ABDOMEN: Large ventral hernia in the rid mid/RLQ, approximately 15 cm. Soft and Compressible. TTP. Hypoactive bowel sounds. No skin changes over hernia, no erythema or excess warmth. CHEST: no masses palpated, no axillary or supraclavicular adenopathy GENITAL/URINARY: Not examined MUSCULOSKELETAL: There is no redness, warmth, or swelling of the joints. Full range of motion noted. NEUROLOGIC: Awake, alert, oriented to name, place and time. SKIN: normal skin color, texture, no redness, warmth, or swelling DATA: CBC: Lab Results Component Value Date WBC 4.4 04/10/2024 RBC 4.40 04/10/2024 HGB 13.7 04/10/2024 HCT 40.7 04/10/2024 MCV 92.5 04/10/2024 MCH 31.1 04/10/2024 MCHC 33.7 04/10/2024 RDW 12.7 04/10/2024 PLT 221 04/10/2024 MPV 8.7 (L) 04/10/2024 BMP: Lab Results Component Value Date NA 139 04/10/2024 K 2.9 (L) 04/10/2024 CL 110 (H) 04/10/2024 CO2 20 (L) 04/10/2024 BUN 4 (L) 04/10/2024 CREATININE 0.49 (L) 04/10/2024 CALCIUM 9.0 04/10/2024 GLUCOSE 163 (H) 04/10/2024 Hepatic Function Panel: Lab Results Component Value Date ALKPHOS 46 04/10/2024 ALT 17 04/10/2024 AST 20 04/10/2024 PROT 6.8 04/10/2024 BILITOT 0.6 04/10/2024 PT/INR: No results found for: PROTIME, INR Troponin: No results found for: TROPONINI LIPASE: Lab Results Component Value Date LIPASE 63 04/10/2024 IMAGING: CT abdomen pelvis w contrast Narrative: Patient Name: MEL WALL : 1985 [facility]#: [id number] Exam Date/Time: 04/10/2024 10:09 Procedure: CT ABDOMEN PELVIS W CONTRAST Ordering Provider: AHN BETHANY Reason For Exam: Bowel obstruction suspected CT ABDOMEN AND PELVIS Indication: 38-year-old female; bowel obstruction suspected; nonfocal abdominal pain since 3:00am with nausea and vomiting; surgical history includes appendectomy and cholecystectomy and hernia repair Scan Parameters: Multiple axial CT images were obtained of the abdomen and pelvis. Coronal and sagittal reconstructions were reviewed as well. ALARA protocol. Dose reduction was employed with automated exposure control. Contrast: 75 mL of Isovue-370 IV contrast; no oral contrast Comparison: 11/13/2023 and 09/13/2023 FINDINGS: Lung bases: The lung bases are clear. Heart: The heart is not enlarged. There is no pericardial effusion. Osseous structures: There is a stable 12 mm sclerotic lesion of the T9 vertebral body, unchanged from 09/13/2023. Liver: The hepatic contour is unremarkable. Gallbladder/Biliary tree: No biliary dilatation. The gallbladder is absent. Spleen: The spleen measures upper limits of normal in size. Adrenals: Mild left adrenal gland hyperplasia. Pancreas: Normal. Kidneys/Bladder: Bilateral renal cysts are present, no follow-up necessary. There is no hydronephrosis. A punctate nonobstructive right renal calculi are present. The bladder contour is normal. Adnexa: The uterus is anteverted. Bilateral ovarian follicular cystic changes are present. Bilateral fallopian tube clips noted. Hernias and GI tract: There is a large wide neck ventral hernia (10 cm neck axial) which contains multiple loops of small and large bowel as well as portions of the stomach. There is no stranding in the fat and there is no significant bowel distention within the hernia. The appendix is surgically absent. Fecal retention is present. The transverse colon, ascending colon, and cecum are present within the large hernia. There are multiple loops of decompressed small bowel within the large hernia some of which contain GI contrast and some of which do not. Contrast is present within the stomach and duodenum as well as multiple loops of proximal small bowel. There is a mildly dilated loop of small bowel at the midline measuring 3.6 cm in diameter. This bowel loop continues into the large ventral hernia and is decompressed the site of entry point. Peritoneal Cavity/Retroperitoneum: No lymphadenopathy. Vasculature: There is no significant atherosclerotic disease. Impression: There is a mildly dilated loop of small bowel at the midline measuring 3.6 cm in diameter. This bowel loop continues into the large ventral hernia and is decompressed at the site of entry point. The large wide neck ventral hernia contains multiple loops of decompressed small bowel as well as the cecum, ascending colon, and transverse colon. Findings are concerning for least partial bowel obstruction. Right renal nephrolithiasis. No obstructive uropathy. Bilateral renal cysts. Additional findings, as above. Report Dictated on Electronically Signed By: Michelle Velazquez MD Electronically Signed Date/Time: 04/10/2024 10:21 AM EDT ASSESSMENT AND PLAN: This is a 38 y.o. female with recent EGD (11/29/23) suggestive of hepatic flexure mobilization after duodenal switch now presents with increasing generalized abdominal pain in the setting of a large ventral hernia, obstipation, N/V, although imaging not convincing of an SBO. DDX includes SBO, incarcerated hernia, strangulation; however no peritoneal signs or signs of strangulation at this time Admit to general surgery - no acute surgical interventions at this time - NPO for bowel rest - NG decompression - KUB now repeat 2200 and AM 04/11 - No UGI at this time - enema for constipation - continue to trend lactate - electrolyte repletion (found to by hypokalemic on presentation) - parental nutrition as indicated Patient discussed with attending, Dr. Taylor. Scot Casanova MD General Surgery Resident, PGY-1 04/10/24 1:30 PM This note may have been dictated using [employer] / [employer] Practice Edition 2.6 and/or [employer] Voice Recognition Feature. The document was proofread; however, unrecognized voice recognition wood stock blank handler errors may be present. ATTESTATION The patient was seen and examined. I have reviewed the patients presentation, histories, imaging and serology studies. I agree with the above assessment and plan. Patient states that she is feeling better this morning. Distention is less. She denies nausea or vomiting. Laboratory values stable. Patient states that she has lost 10 pounds since starting her medical weight loss program. She is still not at her goal weight. KUB this morning revealed findings showing contrast into the descending colon. Patient denies flatus or bowel movement. Okay to start clear liquid diet and bowel regimen. No surgical intervention at this time. Will continue to follow. All the patient's questions were answered. --------- I personally performed the evaluation and management of Mel Wall in the development of a treatment plan for this patient. I personally interviewed the patient and performed an individual physical examination. In addition, I discussed the patient's condition and treatment options with them. I have also reviewed and agree with the past medical, family and social history unless otherwise noted. All of the patient's questions were answered. I personally spent 75 minutes of time between the face to face encounter, physical exam, reviewing the medical history, coordinating the patient's care, counseling/educating the patient, ordering prescriptions/medications/tests/proc edures, interpreting results and documenting clinical information in the patient's electronic health record on the day of the encounter. Patient Care Team: Survela Chris (Inactive) as PCP - General Serafin Taylor DO as Surgeon (General Surgery) documented in this encounter [facility] 04-10-2024 Emergency department Note Pt being transferred to [facility] ED via [facility]. Handoff report given to transportation project manager. Report was called to ED, Karis SALAZAR. Pt's belongings sent with pt in ambulance, car keys left with protective services for family mbr to pickup driver her vehicle. Donald Hogan RN 04/10/24 1234 [facility] 04-10-2024 Physician Emergency department Note [facility] EMERGENCY DEPT EMERGENCY DEPARTMENT ENCOUNTER Pt Name: Mel Wall Birthdate 1985 Date of evaluation: 04/10/2024 Provider: Shaista Ahn MD CHIEF COMPLAINT Chief Complaint Patient presents with Abdominal Pain Abd hernia HISTORY OF PRESENT ILLNESS (Location/Symptom, Timing/Onset, Context/Setting, Quality, Duration, Modifying Factors, Severity) Note limiting factors. I wore a surgical mask for the entirety of this encounter. Mel Wall is a 38 y.o. female with a complex past surgical history including appendectomy, cholecystectomy, prior gastric sleeve surgery with recurrent incisional hernia and several repeated mesh repairs presenting with recurrent abdominal pain, nausea, vomiting. Says she struggled with this many times in the last few months, this recurrent episode started overnight, she has had quite a bit of pain, nausea and emesis. She denies being able to have stool for the past 48 hours or so and cannot member the last time she passed gas. Denies any urinary symptoms. Prior to constipation she had normal stools with no blood. Denies fever, chills, cough, congestion or any other symptoms. Review of systems otherwise negative. Past Medical history reviewed. REVIEW OF SYSTEMS Negative except for above HPI Review of Systems PAST MEDICAL HISTORY Past Medical History: Diagnosis Date Anxiety Bile reflux gastritis Bipolar affective (HCC) Depression Morbid obesity, unspecified obesity type (HCC) SURGICAL HISTORY Past Surgical History: Procedure Laterality Date APPENDECTOMY BILIOPANCREATIC DIVERSION 10/23/2008 Sherie @ [place]; janel-en-y duodenojejunostomy for bile reflux CHOLECYSTECTOMY 02/2007 lap COLONOSCOPY N/A 11/29/2023 [facility]; repeat in 11/2033 EXPLORATORY LAPAROTOMY 06/10/2019 Veronica @ [facility]; ex lap, WAI INCISION AND DRAINAGE OF WOUND 08/09/2013 [facility]; I&D of surgical incision of LLQ INCISIONAL HERNIA REPAIR 10/20/2017 [place]; open primary repair INCISIONAL HERNIA REPAIR 07/12/2018 [facility]; open w/ mesh INCISIONAL HERNIA REPAIR 09/26/2018 [facility]; lap w/ mesh INCISIONAL HERNIA REPAIR 03/11/2020 ; repair w/ mesh excision, mesh replacement, WAI INCISIONAL HERNIA REPAIR [facility]19/[facility]; open repair w/ mesh SOFT TISSUE MASS EXCISION 08/02/2013 [facility]; STM excision of LLQ TONSILLECTOMY CURRENT MEDICATIONS Previous Medications ACETAMINOPHEN (TYLENOL) 325 MG TABLET Take 650 mg by mouth every 6 hours as needed for mild pain (1-3), moderate pain (4-6), headaches or fever. ALBUTEROL 108 (90 BASE) MCG/ACT INHALER Inhale 2 puffs every 4 hours as needed for wheezing or shortness of breath. METFORMIN XR (GLUCOPHAGE-XR) 500 MG 24 HR TABLET Take 1 tablet (500 mg) by mouth with evening meal. PHENTERMINE (ADIPEX-P) 37.5 MG TABLET Take 1 tablet (37.5 mg) by mouth every morning (before breakfast). PHENTERMINE (ADIPEX-P) 37.5 MG TABLET Take 1 tablet (37.5 mg) by mouth every morning (before breakfast). PHENTERMINE (ADIPEX-P) 37.5 MG TABLET Take 1 tablet (37.5 mg) by mouth every morning (before breakfast). PROMETHAZINE (PHENERGAN) 25 MG SUPPOSITORY Insert 1 suppository (25 mg) into the rectum every 6 hours as needed for vomiting. ALLERGIES Ketorolac and Ondansetron FAMILY HISTORY Family History Problem Relation Name Age of Onset Hypertension Father Diabetes Father SOCIAL HISTORY Social History Socioeconomic History Marital status: Single Tobacco Use Smoking status: Former Types: Cigarettes Smokeless tobacco: Never Substance and Sexual Activity Alcohol use: Not Currently Drug use: Yes Frequency: 2.0 times per week Types: Marijuana Sexual activity: Not Currently Social Determinants of Health Financial Resource Strain: Medium Risk (03/11/2023) Received from [facility] Overall Financial Resource Strain (CARDIA) Difficulty of Paying Living Expenses: Somewhat hard Food Insecurity: Food Insecurity Present (03/11/2023) Received from [facility] Hunger Vital Sign Worried About Running Out of Food in the Last Year: Sometimes true Ran Out of Food in the Last Year: Sometimes true Transportation Needs: No Transportation Needs (10/19/2023) PRAPARE - Transportation Lack of Transportation (Medical): No Lack of Transportation (Non-Medical): No Physical Activity: Insufficiently Active (08/05/2020) Received from [facility] Exercise Vital Sign Days of Exercise per Week: 4 days Minutes of Exercise per Session: 30 min Stress: Stress Concern Present (08/05/2020) Received from [facility] of Occupational Health - Occupational Stress Questionnaire Feeling of Stress : Rather much Social Connections: Unknown (08/05/2020) Received from [facility] Social Connection and Isolation Panel [NHANES] Frequency of Communication with Friends and Family: Three times a week Frequency of Social Gatherings with Friends and Family: Once a week Attends Adventism Services: More than 4 times per year Housing Stability: Low Risk (10/19/2023) Housing Stability Vital Sign Unable to Pay for Housing in the Last Year: No Number of Places Lived in the Last Year: 1 Unstable Housing in the Last Year: No SCREENINGS PHYSICAL EXAM (up to 7 for level 4, 8 or more for level 5) @EDTRIAGEVSS@ Physical Exam Vitals and nursing note reviewed. Constitutional: General: She is not in acute distress. Appearance: Normal appearance. HENT: Head: Normocephalic and atraumatic. Nose: Nose normal. Eyes: Conjunctiva/sclera: Conjunctivae normal. Cardiovascular: Rate and Rhythm: Normal rate. Pulmonary: Effort: Pulmonary effort is normal. No respiratory distress. Abdominal: General: Abdomen is flat. There is no distension. Tenderness: There is abdominal tenderness (Large but soft ventral incisional hernia, chronic overlying skin changes but no acute redness, induration, warmth, bruising). Skin: General: Skin is warm and dry. Capillary Refill: Capillary refill takes less than 2 seconds. Neurological: Mental Status: She is alert. Psychiatric: Behavior: Behavior normal. EMERGENCY DEPARTMENT COURSE and DIFFERENTIAL DIAGNOSIS/MDM: Vitals: Vitals: 04/10/24 0734 04/10/24 0904 04/10/24 1056 BP: 133/68 121/78 134/79 Pulse: (!) 121 102 103 Resp: 18 18 18 Temp: 36.8 C (98.2 F) TempSrc: Temporal SpO2: 100% 98% 98% Weight: 111 kg (245 lb) Medications potassium chloride IVPB 10 mEq (10 mEq IntraVENous New Bag 04/10/24 1056) sodium chloride 0.9 % bolus 1,000 mL (1,000 mL IntraVENous New Bag 04/10/24 1124) sodium chloride 0.9 % bolus 1,000 mL (has no administration in time range) promethazine (Phenergan) injection 6.25 mg (6.25 mg IntraMUSCular Given 04/10/24 0750) sodium chloride 0.9 % bolus 1,000 mL (0 mL IntraVENous Stopped 04/10/24 1058) HYDROmorphone (Dilaudid) injection 1 mg (1 mg IntraVENous Given 04/10/24 0808) HYDROmorphone (Dilaudid) injection 1 mg (1 mg IntraVENous Given 04/10/24 0903) promethazine (Phenergan) injection 6.25 mg (6.25 mg IntraMUSCular Given 04/10/24 1122) HYDROmorphone (Dilaudid) injection 1 mg (1 mg IntraVENous Given 04/10/24 1149) Medical Decision Making ADDITIONAL MEDICAL DESICION MAKING IS DOCUMENTED IN THE ED COURSE. PLEASE REFER TO ED COURSE. Mel Wall is a 38 y.o. female with a complex past surgical history including appendectomy, cholecystectomy, prior gastric sleeve surgery with recurrent incisional hernia and several repeated mesh repairs presenting with recurrent abdominal pain, nausea, vomiting. Says she struggled with this many times in the last few months, this recurrent episode started overnight, she has had quite a bit of pain, nausea and emesis. She denies being able to have stool for the past 48 hours or so and cannot member the last time she passed gas. Denies any urinary symptoms. Prior to constipation she had normal stools with no blood. Denies fever, chills, cough, congestion or any other symptoms. Review of systems otherwise negative. On physical exam: Large but soft ventral incisional hernia, chronic overlying skin changes but no acute redness, induration, warmth, bruising Differential diagnoses considered include: Plan: cbc, cmp, phenergan, iv fluids, lactic, ct abdomen pelvis w/ iv and oral contrast External records reviewed: I reviewed the progress note from general surgery following up for nonsurgical weight loss plan, 04/03/2024, I also reviewed various progress notes from this clinic and others detailing patient's intermittent recurrent abdominal pain and nausea Discussions with other clinicians: ED Dr. Borjas, Bariatric Surgery Dr. Taylor Chronic conditions impacting care: Para-incisional hernia Problems Addressed: Generalized abdominal pain: complicated acute illness or injury Amount and/or Complexity of Data Reviewed Labs: ordered. Decision-making details documented in ED Course. Radiology: ordered. Decision-making details documented in ED Course. Risk Prescription drug management. All independent interpretations of EKGs are documented in [facility]. ED Course as of 04/10/24 1508 Tue Apr 10, 2024 0911 MAGNESIUM: 1.9 [BJ] 0911 LIPASE: 63 [BJ] 0911 Creatinine(!): 0.49 [BJ] 0911 RBC: 4.40 [BJ] 0911 Auto WBC: 4.4 [BJ] 1107 CT abdomen pelvis w contrast [BJ] 1153 Workup concerning for mildly low bicarb and potassium likely due to GI losses and a mildly elevated lactic. No white count noted. Will repeat lactic, potassium was repleted IV. Patient's symptoms recurred so pain medications and antiemetic Phenergan redosed. Will also redosed IV fluids. I spoke with Dr. Morris who accepts patient for ED to ED transfer. [BJ] ED Course User Index [BJ] Shaista Ahn MD Diagnoses as of 04/10/24 1508 Generalized abdominal pain Partial small bowel obstruction (HCC) Ventral hernia with obstruction and without gangrene CONSULTS: None PROCEDURES: Unless otherwise noted below, none Procedures FINAL IMPRESSION 1. Generalized abdominal pain DISPOSITION/PLAN DISPOSITION Transfer To [facility] Ed 04/10/2024 11:50:20 AM PATIENT REFERRED TO: No follow-up provider specified. DISCHARGE MEDICATIONS: New Prescriptions No medications on file @[facility]([id number]:LAST:1)@ (Please note: Portions of this note were completed with a voice recognition program. Efforts were made to edit the dictations but occasionally words and phrases are mis-transcribed.) Form [id number] Shaista Ahn MD (electronically signed) Emergency Medicine Provider Shaista Ahn MD 04/10/24 1155 [facility] 04-10-2024 Physician Emergency department Note Emergency Department Encounter Location: [facility] EMERGENCY DEPT Patient: Mel Wall : 1985 Date of evaluation: 04/10/2024 ED Provider: Patricia Comer MD Time received sign-out: 1113 Mel Wall was checked out to me by Dr. Ahn. Please see his/her initial documentation for details of the patient's initial ED presentation, physical exam and completed studies. I did perform a substantive portion of the visit including all aspects of the Medical Decision Making. In brief, Mel Wall is a 38 y.o. female that presented to the emergency department for abdominal pain. I have reviewed and interpreted all of the currently available lab results and diagnostics from this visit: Results for orders placed or performed during the hospital encounter of 04/10/24 CBC auto differential Result Value Ref Range Auto WBC 4.4 3.6 - 10.7 10*3/uL RBC 4.40 3.80 - 5.20 10*6/uL Hemoglobin 13.7 11.7 - 16.0 g/dL Hematocrit 40.7 35.0 - 47.0 % MCV 92.5 77.0 - 99.0 fL MCH 31.1 26.0 - 34.0 pg MCHC 33.7 30.5 - 36.0 % RDW 12.7 11.5 - 15.0 % Platelets 221 140 - 440 10*3/uL MPV 8.7 (L) 9.0 - 12.7 fL nRBC 0.0 0.0 - 2.0 /100 WBCs Neutrophils Relative 55.2 38.0 - 82.0 % Lymphocytes Relative 34.7 15.0 - 45.0 % Monocytes Relative 6.9 5.0 - 13.0 % Eosinophils Relative 2.5 0.0 - 6.0 % Basophils Relative 0.5 0.0 - 2.0 % Immature Grans % 0.2 0.0 - 2.0 % Neutrophils Absolute 2.4 1.8 - 7.5 10*3/uL Lymphocytes Absolute 1.5 1.0 - 4.3 10*3/uL Monocytes Absolute 0.3 0.0 - 0.9 10*3/uL Eosinophils Absolute 0.1 0.0 - 0.5 10*3/uL Basophils Absolute 0.0 0.0 - 0.2 10*3/uL Immature Grans Absolute 0.0 <0.1 10*3/uL Comprehensive metabolic panel Result Value Ref Range SODIUM 139 135 - 145 mmol/L POTASSIUM 2.9 (L) 3.5 - 5.1 mmol/L CHLORIDE 110 (H) 98 - 107 mmol/L CARBON DIOXIDE 20 (L) 22 - 30 mmol/L ANION GAP 8 3 - 13 mmol/L UREA NITROGEN 4 (L) 7 - 17 mg/dL CREATININE 0.49 (L) 0.52 - 1.04 mg/dL GLUCOSE 163 (H) 70 - 100 mg/dL CALCIUM 9.0 8.4 - 10.4 mg/dL AST (SGOT) 20 15 - 46 U/L ALT 17 0 - 34 U/L ALKALINE PHOSPHATASE 46 38 - 126 U/L ALBUMIN 4.2 3.5 - 5.0 g/dL BILIRUBIN, TOTAL 0.6 0.2 - 1.3 mg/dL TOTAL PROTEIN 6.8 6.3 - 8.2 g/dL eGFR >90.0 >60.0 mL/min/1.73m*2 Lipase Result Value Ref Range LIPASE 63 23 - 300 U/L Lactic acid with reflex Result Value Ref Range LACTIC ACID 2.6 (H) 0.7 - 2.0 mmol/L Lactic acid with reflex Result Value Ref Range LACTIC ACID 2.7 (H) 0.7 - 2.0 mmol/L Magnesium Result Value Ref Range MAGNESIUM 1.9 1.6 - 2.3 mg/dL Final ED Course and MDM: In brief, Mel Wall is a 38 y.o. female whose care was signed out to me by the outgoing provider. In brief, presented to [facility] ED for abdominal pain, nausea, emesis that started overnight and states that she has not had a bowel movement in 48 hours. Has a history of appendectomy, cholecystectomy, sleeve gastrectomy. Was evaluated at [facility] ED where she was found to have a ventral hernia with a dilated loop of bowel concerning for at least partial small bowel obstruction. This was discussed with Dr. Taylor by the previous provider, and he recommended ED to ED transfer for surgical evaluation. On arrival patient is still symptomatic. She was given pain control. Surgery was called to assess the patient presented to bedside. Final disposition is pending but anticipate admission to surgery for serial exams and labs. Patient is agreeable with plan for admission to the hospital. Medications potassium chloride IVPB 10 mEq (10 mEq IntraVENous Not Given 04/10/24 1433) oxymetazoline (Afrin) 0.05 % nasal spray 2 spray (has no administration in time range) lidocaine (Uro-Jet) 2 % gel (has no administration in time range) morphine injection 4 mg (has no administration in time range) promethazine (Phenergan) injection 6.25 mg (6.25 mg IntraMUSCular Given 04/10/24 0750) sodium chloride 0.9 % bolus 1,000 mL (0 mL IntraVENous Stopped 04/10/24 1058) HYDROmorphone (Dilaudid) injection 1 mg (1 mg IntraVENous Given 04/10/24 0808) HYDROmorphone (Dilaudid) injection 1 mg (1 mg IntraVENous Given 04/10/24 0903) promethazine (Phenergan) injection 6.25 mg (6.25 mg IntraMUSCular Given 04/10/24 1122) HYDROmorphone (Dilaudid) injection 1 mg (1 mg IntraVENous Given 04/10/24 1149) sodium chloride 0.9 % bolus 1,000 mL (0 mL IntraVENous Stopped 04/10/24 1232) sodium chloride 0.9 % bolus 1,000 mL (0 mL IntraVENous Stopped 04/10/24 1358) HYDROmorphone (Dilaudid) injection 0.5 mg (0.5 mg IntraVENous Given 04/10/24 9305) Final Impression 1. Generalized abdominal pain 2. Partial small bowel obstruction (HCC) 3. Ventral hernia with obstruction and without gangrene DISPOSITION Admit 04/10/2024 03:07:42 PM (Please note that portions of this note may have been completed with a voice recognition program. Efforts were made to edit the dictations but occasionally words are mis-transcribed.) MD Patricia Hagen MD Resident 04/10/24 1509 [facility] 04-10-2024 Physician Emergency department Note Emergency Department Encounter [facility] EMERGENCY DEPT Patient: Mel Wall : 1985 Date of Evaluation: 04/10/2024 ED Supervising Physician: Gemma Menezes DO I personally evaluated Mel Wall and made/approved the management plan and take responsibility for the patient management. This will serve as my Supervisory note and shared attestation. I did perform a substantive portion of the visit including all aspects of the Medical Decision Making. I wore appropriate PPE for the entirety of this encounter. In brief, Mel Wall is a 38 y.o. that presents to the emergency department for surgical evaluation from an outlying facility due to a partial small bowel obstruction. Has a large ventral hernia with a dilated loop of bowel. Contrast did make it through the bowel but it was delayed hence the radiographic diagnosis of partial small bowel obstruction. Focused exam: Vital signs noted. Well-appearing patient lying in bed, normal respiratory pattern without conversational dyspnea or respiratory distress. Normal speech and mental status. Large ventral hernia noted with moderate tenderness to palpation. No peritonitis. Brief ED course/MDM: Surgical consultation in the emergency department, disposition in collaboration with them. Diagnostics interpreted by me: I personally discussed the patient's management with other clinicians: All diagnostic, treatment, and disposition decisions were made by myself in conjunction with the Resident. I also supervised solares portions of any procedures performed by the Resident. For all further details of the patient's emergency department visit, please see their documentation. (Comment: Please note this report has been produced using speech recognition software and may contain errors related to that system including errors in grammar, punctuation, and spelling, as well as words and phrases that may be inappropriate. If there are any questions or concerns please feel free to contact the dictating provider for clarification.) Gemma Menezes DO [employer] Gemma Menezes DO 04/10/24 1322 [place] Phone: 04-03-2024 History of Present illness Narrative HPI, PHYSICAL EXAMINATION & PLAN HPI: Patient here today for follow up for non-surgical weight loss management Weight trend since last visit: lost 5 lb over 1 m stable This patient's excess weight is causing the following co-morbid conditions at this time:Other hernia ventral Physical Examination: Blood pressure 130/83, pulse 80, height 5' 5 (1.651 m), weight 250 lb 12.8 oz (114 kg). General: This patient is calm and pleasant General: This patient is awake, alert, and oriented, and is in no apparent distress. Extremities: No cyanosis, clubbing or edema/ No calf tenderness/No restrictions of movement, is ambulatory without assistance. Neurological: Intact x 4 extremities, no focal deficits notes. Skin: No rashes or lesions noted. Social History: This patient is alone for the evaluation today. She does notsmoke, and does notdrink alcohol. Current Diet This patient s current diet is: 80% meal plan Her diet contains adequate amounts of protein, adequate amounts of healthy fats, adequate amounts of green, leafy vegetables, and adequate amounts of fruits. Her comfort foods include: none Current Activity Does not exercise due to hernia Current Eating Behaviors This patients demonstrates the following behaviors as they relate to her eating: structured She eats approximately 5-6 times per day. Her last meal/snack was at 6 am/pm. Progress Made Towards Goals: 3 month weight goal: 20 6 month weight goal: 10 12 month weight goal: 10 Plan: Obesity stable Continue current management, continue weight loss program Focus on the meal structure, composition and portion control On adipex No side effects No doubt GLP 1 agonist is the best choice No coverage Screening for DM Lab Results Component Value Date HGBA1C 5.5 01/30/2024 Other ventral hernia Will follow up surgery recommendation Needs to be around 210 lb prior to repair [x] Protein goal of 1g protein per 1 kg of ideal body weight: 75 grams [x] Patient advised to maintain a food/exercise/behavior diary until next physician visit and to bring the completed diary to next visit [] Referred patient to surgical weight loss management program (FD to place referral) Physician Diet Recommendations given to patient See Follow up Section of today's encounter for next visit and additional scheduling orders Obtain follow up lab work: BARIATRIC; Non Surg Lab orders: no Patient is not taking anti-obesity medication. I spend a total of 20 minutes on the same day of the visit in discussing/counseling the patient regarding the diet and exercise in order to lose weight.Education on the meal plan and 7 rules of eating is provided. Meal prep is encouraged as a foundation of the meal plan. Food journal is encouraged as a feedback system. Exercise and its role in weight loss is explained. Weight loss medications role in weight loss journey is discussed Ventral hernia Is associated with obesity and weight loss is discussed as a treatment option for ventral hernia Full chart review was performed.Clinical documentation is updated and completed. [facility] NON-SURGICAL WEIGHT LOSS MANAGEMENT PROGRAM ROOMING NOTE: FOLLOW UP VISIT Patient: Mel Wall Date of : 1985 Service Date: 04/03/2024 Patient History/Assessment Summary: The patient is a pleasant 38 y.o. year old female, who stands Height: 5' 5 (165.1 cm) tall with a weight of Weight: 250 lb 12.8 oz (114 kg) pounds, resulting in a BMI of Body mass index is 41.74 kg/m . kg/m2. She is here for follow-up for non-surgical treatment of Obesity Patient has the following question(s): none Pre Program Weight Metrics (CARE Path) Date of Initial Consultation:@FLOWLAST([id number])@ Initial Weight: @FLOWLAST([id number])@ Initial BMI: @FLOWLAST([id number])@ [place] Body Weight: @FLOWLAST([id number])@ Excess Body Weight: @FLOWLAST([id number])@ Body Fat Percentage: Failed to redirect to the Timeline version of the [place] SmartLink. Subsequent Body Fat Percentage: Failed to redirect to the Timeline version of the [place] Smart[employer]. Pre Program Weight Metrics (Epic) (Surgical Wt Loss Management- baseline) This Visit Non-Surgical Subsequent Eval Date: 04/03/24 Height: 5' 5 (165.1 cm) Weight: 250 lb 12.8 oz (114 kg) BMI: 41.73 Weight Change: -4.8 lbs Total Weight Change: -2.4 lbs % EBWL: 2% Subsequent Body Fat %: 50.08 Body Fat % Change: -0.96 Follow Up Weight Metrics Last Three Weights Including Today's Weight: Wt Readings from Last 3 Encounters: 04/03/24 250 lb 12.8 oz (114 kg) 03/06/24 255 lb 9.6 oz (116 kg) 01/30/24 255 lb 9.6 oz (116 kg) Diabetes Do you currently have diabetes? No Are you currently prescribed insulin? No Are you currently prescribed an oral medication for diabetes? No GERD (Gastroesophageal Reflux Disease) Do you currently have GERD? No Do you get heartburn type symptoms more than twice per week? No Are you currently on a medication for GERD? (not TUMS) (examples: Prilosec/omeprazole, Zantac/ranitidine, etc.) No Hyperlipidemia (high cholesterol) Do you currently have a diagnosis of high cholesterol? No Are you currently prescribed a medication for high cholesterol? (examples Lipitor/Atorvastatin, Pravastatin, Zetia, Tricor, etc.) No Have you been diagnosed with high cholesterol but chosen not to take medication? No Hypertension (high blood pressure) Do you currently have a diagnosis of Hypertension? No Are you currently on a medication for Hypertension? No Have you been diagnosed with Hypertension but have chosen not to take the medication? No Sleep Apnea Do you currently have Sleep Apnea? No Are you on a device (CPAP, BiPAP, etc) for Sleep Apnea? No Have you been diagnosed with Sleep Apnea but cannot tolerate or have chosen not to treat? No Comorbids summary (flow sheet comorbids) Falls Risk Assessment Patient does not take medications which affect BP or mental status Patient does not have newly prescribed or changed dosage of medications within past 30 days which affect BP or mental status Patient has not fallen in the past 2 months Patient does not demonstrate unsteady gait Patient uses the following ambulatory assistive devices: none Patient states the presence of the following traits which increases risk of fall: none Patient is not on home O2 Completed by: Sandra Cutler LPN documented in this encounter [facility] 03-06-2024 History of Present illness Narrative HPI, PHYSICAL EXAMINATION & PLAN HPI: Patient here today for follow up for non-surgical weight loss management Weight trend since last visit: no change stable This patient's excess weight is causing the following co-morbid conditions at this time:Other hernia ventral Physical Examination: Blood pressure 123/80, pulse 76, height 5' 5 (1.651 m), weight 255 lb 9.6 oz (116 kg). General: This patient is calm and pleasant General: This patient is awake, alert, and oriented, and is in no apparent distress. Extremities: No cyanosis, clubbing or edema/ No calf tenderness/No restrictions of movement, is ambulatory without assistance. Neurological: Intact x 4 extremities, no focal deficits notes. Skin: No rashes or lesions noted. Social History: This patient is alone for the evaluation today. She does notsmoke, and does notdrink alcohol. Current Diet This patient s current diet is: 80% meal plan Her diet contains adequate amounts of protein, adequate amounts of healthy fats, adequate amounts of green, leafy vegetables, and adequate amounts of fruits. Her comfort foods include: none Current Activity Does not exercise due to hernia Current Eating Behaviors This patients demonstrates the following behaviors as they relate to her eating: structured She eats approximately 5-6 times per day. Her last meal/snack was at 6 am/pm. Progress Made Towards Goals: 3 month weight goal: 20 6 month weight goal: 10 12 month weight goal: 10 Plan: Obesity stable Continue current management, continue weight loss program Focus on the meal structure, composition and portion control Will continue metformin Will start adipex this month ( will destroy her old prescription) No doubt GLP 1 agonist is the best choice No coverage Screening for DM Lab Results Component Value Date HGBA1C 5.5 01/30/2024 Other ventral hernia Will follow up surgery recommendation Needs to be around 210 lb prior to repair [x] Protein goal of 1g protein per 1 kg of ideal body weight: 75 grams [x] Patient advised to maintain a food/exercise/behavior diary until next physician visit and to bring the completed diary to next visit [] Referred patient to surgical weight loss management program (FD to place referral) Physician Diet Recommendations given to patient See Follow up Section of today's encounter for next visit and additional scheduling orders Obtain follow up lab work: BARIATRIC; Non Surg Lab orders: no Patient is not taking anti-obesity medication. I spend a total of 20 minutes on the same day of the visit in discussing/counseling the patient regarding the diet and exercise in order to lose weight.Education on the meal plan and 7 rules of eating is provided. Meal prep is encouraged as a foundation of the meal plan. Food journal is encouraged as a feedback system. Exercise and its role in weight loss is explained. Weight loss medications role in weight loss journey is discussed Ventral hernia Is associated with obesity and weight loss is discussed as a treatment option for ventral hernia Full chart review was performed.Clinical documentation is updated and completed. [facility] NON-SURGICAL WEIGHT LOSS MANAGEMENT PROGRAM ROOMING NOTE: FOLLOW UP VISIT Patient: Mel Wall Date of : 1985 Service Date: 03/06/2024 Patient History/Assessment Summary: The patient is a pleasant 38 y.o. year old female, who stands Height: 5' 5 (165.1 cm) tall with a weight of Weight: 255 lb 9.6 oz (116 kg) pounds, resulting in a BMI of Body mass index is 42.53 kg/m . kg/m2. She is here for follow-up for non-surgical treatment of Obesity Patient has the following question(s): none Pre Program Weight Metrics ([facility]ARE Path) Date of Initial Consultation:@FLOWLAST([id number])@ Initial Weight: @FLOWLAST([id number])@ Initial BMI: @FLOWLAST([id number])@ [place] Body Weight: @FLOWLAST([id number])@ Excess Body Weight: @FLOWLAST([id number])@ Body Fat Percentage: Failed to redirect to the Timeline version of the [place] SmartLink. Subsequent Body Fat Percentage: Failed to redirect to the Timeline version of the [employer] Smart[employer]. Pre Program Weight Metrics (Epic) (Surgical Wt Loss Management- baseline) This Visit Non-Surgical Subsequent Eval Date: 03/06/24 Height: 5' 5 (165.1 cm) Weight: 255 lb 9.6 oz (116 kg) BMI: 42.53 Weight Change: 0 lbs Total Weight Change: 2.4 lbs % EBWL: -2% Subsequent Body Fat %: 51.04 Body Fat % Change: 0 Follow Up Weight Metrics Last Three Weights Including Today's Weight: Wt Readings from Last 3 Encounters: 03/06/24 255 lb 9.6 oz (116 kg) 01/30/24 255 lb 9.6 oz (116 kg) 01/06/24 259 lb 11.2 oz (118 kg) Diabetes Do you currently have diabetes? No Are you currently prescribed insulin? No Are you currently prescribed an oral medication for diabetes? No GERD (Gastroesophageal Reflux Disease) Do you currently have GERD? No Do you get heartburn type symptoms more than twice per week? No Are you currently on a medication for GERD? (not TUMS) (examples: Prilosec/omeprazole, Zantac/ranitidine, etc.) No Hyperlipidemia (high cholesterol) Do you currently have a diagnosis of high cholesterol? No Are you currently prescribed a medication for high cholesterol? (examples Lipitor/Atorvastatin, Pravastatin, Zetia, Tricor, etc.) No Have you been diagnosed with high cholesterol but chosen not to take medication? No Hypertension (high blood pressure) Do you currently have a diagnosis of Hypertension? No Are you currently on a medication for Hypertension? No Have you been diagnosed with Hypertension but have chosen not to take the medication? No Sleep Apnea Do you currently have Sleep Apnea? No Are you on a device (CPAP, BiPAP, etc) for Sleep Apnea? No Have you been diagnosed with Sleep Apnea but cannot tolerate or have chosen not to treat? No Comorbids summary (flow sheet comorbids) Falls Risk Assessment Patient does not take medications which affect BP or mental status Patient does not have newly prescribed or changed dosage of medications within past 30 days which affect BP or mental status Patient has not fallen in the past 2 months Patient does not demonstrate unsteady gait Patient uses the following ambulatory assistive devices: none Patient states the presence of the following traits which increases risk of fall: none Patient is not on home O2 Completed by: Sandra Cutler LPN documented in this encounter [facility] 02-03-2024 Telephone encounter Note All orders cancelled previously. Noted in bariatric comment already. [facility] 02-03-2024 Miscellaneous Notes All orders cancelled previously. Noted in bariatric comment already. Noted. File pulled, message sent. Team please cancel any other testing, but ok for Psych and RD as below. Routing this to DR Steven for follow up. ----- Message from Serafin Taylor, DO sent at 01/06/2024 4:29 PM EDT ----- Plan for proceeding without bariatric surgery. OK to have her see psych and RD, may be helpful for her medical weight loss. Dr. Steven, are we able to start her on Trulicity? Her goal weight is 210 lbs. Thanks! documented in this encounter [facility] 01-30-2024 History of Present illness Narrative [facility] NON-SURGICAL WEIGHT LOSS MANAGEMENT PROGRAM ROOMING NOTE FOLLOW UP Patient: Mel Wall Date of : 1985 Service Date: 01/30/2024 Pre Program Weight Metrics (flow sheet BAR Bernice Complex Vitals) Neck and Waist Follow Up Weight Metrics Last Three Weights Including Today's Weight: Wt Readings from Last 3 Encounters: 01/06/24 259 lb 11.2 oz (118 kg) 12/29/23 259 lb (117 kg) 12/29/23 253 lb 3.2 oz (115 kg) Patient has the following question(s): none Diabetes Do you currently have diabetes? No Are you currently prescribed insulin? No Are you currently prescribed an oral medication for diabetes? No GERD (Gastroesophageal Reflux Disease) Do you currently have GERD? No Do you get heartburn type symptoms more than twice per week? No Are you currently on a medication for GERD? (not TUMS) (examples: Prilosec/omeprazole, Zantac/ranitidine, etc.) No Hyperlipidemia (high cholesterol) Do you currently have a diagnosis of high cholesterol? No Are you currently prescribed a medication for high cholesterol? (examples Lipitor/Atorvastatin, Pravastatin, Zetia, Tricor, etc.) No Have you been diagnosed with high cholesterol but chosen not to take medication? No Hypertension (high blood pressure) Do you currently have a diagnosis of Hypertension? No Are you currently on a medication for Hypertension? No Have you been diagnosed with Hypertension but have chosen not to take the medication? No Sleep Apnea Do you currently have Sleep Apnea? Are you on a device (CPAP, BiPAP, etc) for Sleep Apnea? No Have you been diagnosed with Sleep Apnea but cannot tolerate or have chosen not to treat? No Comorbid Summary: (flow sheet comorbid) Falls Risk Assessment Patient does not take medications which affect BP or mental status Patient does not have newly prescribed or changed dosage of medications within past 30 days which affect BP or mental status Patient has not fallen in the past 2 months Patient None demonstrate unsteady gait Patient uses the following ambulatory assistive devices: None Patient states the presence of the following traits which increases risk of fall: None Patient is not on home O2 Completed by: Vane Harris HPI, PHYSICAL EXAMINATION & PLAN HPI: Patient here today for follow up for non-surgical weight loss management Weight trend since last visit: gained 5 lbs over 1 m stable This patient's excess weight is causing the following co-morbid conditions at this time:Other hernia ventral Physical Examination: BP 124/76 Pulse 78 Ht 5' 5 (1.651 m) Wt 255 lb 9.6 oz (116 kg) BMI 42.53 kg/m General: This patient is calm and pleasant General: This patient is awake, alert, and oriented, and is in no apparent distress. Extremities: No cyanosis, clubbing or edema/ No calf tenderness/No restrictions of movement, is ambulatory without assistance. Neurological: Intact x 4 extremities, no focal deficits notes. Skin: No rashes or lesions noted. Social History: This patient is alone for the evaluation today. She does notsmoke, and does notdrink alcohol. Current Diet This patient s current diet is: 80% meal plan Her diet contains adequate amounts of protein, adequate amounts of healthy fats, adequate amounts of green, leafy vegetables, and adequate amounts of fruits. Her comfort foods include: none Current Activity Does not exercise due to hernia Current Eating Behaviors This patients demonstrates the following behaviors as they relate to her eating: structured She eats approximately 5-6 times per day. Her last meal/snack was at 6 am/pm. Progress Made Towards Goals: 3 month weight goal: 20 6 month weight goal: 10 12 month weight goal: 10 Plan: Obesity stable Continue current management, continue weight loss program Focus on the meal structure, composition and portion control Will continue metformin Will start adipex Side effects of adipex are discussed including the potential for addiction PDMP is reviewed No doubt GLP 1 agonist is the best choice No coverage Screening for DM Other ventral hernia Will follow up surgery recommendation Needs to be around 210 lb prior to repair [x] Protein goal of 1g protein per 1 kg of ideal body weight: 75 grams [x] Patient advised to maintain a food/exercise/behavior diary until next physician visit and to bring the completed diary to next visit [] Referred patient to surgical weight loss management program (FD to place referral) Physician Diet Recommendations given to patient See Follow up Section of today's encounter for next visit and additional scheduling orders Obtain follow up lab work: BARIATRIC; Non Surg Lab orders: no Patient is not taking anti-obesity medication. I spend a total of 20 minutes on the same day of the visit in discussing/counseling the patient regarding the diet and exercise in order to lose weight.Education on the meal plan and 7 rules of eating is provided. Meal prep is encouraged as a foundation of the meal plan. Food journal is encouraged as a feedback system. Exercise and its role in weight loss is explained. Weight loss medications role in weight loss journey is discussed Ventral hernia Is associated with obesity and weight loss is discussed as a treatment option for ventral hernia Full chart review was performed.Clinical documentation is updated and completed. documented in this encounter [facility] 01-20-2024 Telephone encounter Note Please sign. Thanks! Next OV 01-26-24 [facility] 01-20-2024 Miscellaneous Notes Please sign. Thanks! Next OV 01-26-24 documented in this encounter [facility] 01-18-2024 Telephone encounter Note Noted, thank you all. [facility] 01-18-2024 Miscellaneous Notes Noted, thank you all. D/E switched to nsurg follow up Ok. I will change her appointment to NSURG. Patient is changing to NSURG per Dr. Taylor. --- Message from Serafin Taylor DO sent at 01/06/2024 4:29 PM EDT ----- Plan for proceeding without bariatric surgery. OK to have her see psych and RD, may be helpful for her medical weight loss. Dr. Steven, are we able to start her on Trulicity? Her goal weight is 210 lbs. Thanks! Psychology was already scheduled for 02/01. NPT- patient change to NSURG File pulled Addended by: VANE MARTE on: 01/13/2024 11:26 AM Modules accepted: Orders Images from the original note were not included. Per DR Taylor: DO Za Smith PA-C; AKIRA Pike CNP Caller: Unspecified (Today, 8:29 AM) FYI... 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 EGD revealed nonsleeved stomach. At D1, there appeared to be an end-to-end duodenal enterostomy. There was no evidence of and an affernt limb. Colonoscopy revealed freely mobile bowel within the hernia sac. Patient's right colon and cecum appeared to be within the hernia as well. This is suggestive that the patient had a hepatic flexure mobilization during her duodenal switch procedure. Orders mailed Addended by: GAYLE ANDERSON on: 11/21/2023 10:24 AM Modules accepted: Orders Thanks. We have the operative notes that were accessible. The [address] Rehman at [facility] could not be located. I spoke to Medical Records myself. Addended by: ALLY EDWARD on: 11/18/2023 02:39 PM Modules accepted: Orders Pre op check list scanned to media, labs pended - UGI W/ SBFT, PLAN I have recommended proceeding with the evaluation and work-up for the primary procedure as outlined below: PATIENT SUMMARY Mel Taylor 38 y.o. female with Body mass index is 40.54 kg/m . 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 PCP: [facility] Michelle Perez INITIAL TESTING RESULTS Labwork [x] CMP, TSH, Fasting Lipid Profile, Mg, Zinc, Vit B1 (whole blood), Vit B12, 25-OH Vit D, Fe, Ferritin, Folate Tobacco [x] Serum Nicotine / Cotinine [] Negative [] Positive EGD [x] Dx: [] GERD [x] Dyspepsia [] Other LB sent request for EGD and c scope to ALS. Pathology [x] H. pylori [] Negative [] Positive UGI [x] [] not ordered US Abdomen [] [x] not ordered CT completed. JAGJIT eval [] [] On CPAP / Obtain settings Hematology [] [] Hypercoagulation panel Toxicology [] [] Urine drug screen [] EtOH screen Addtional [x] [x] Hgb A1c Additionally, we will perform an EGD/colonoscopy, upper GI swallow with small bowel follow-through. We will also obtain medical records from [facility] (~2016) and [facility] in [facility] (~2015 [place], ~2007 [place]). Pending results of these operative report, we will determine whether or not we need to proceed with an MRCP to assess for hepaticojejunostomy for further assessment. Patient will follow-up with Dr. Steven, for D&E and possibly for medical weight loss drugs if patient is not a candidate for bariatric surgery. Follow-up with me at bariatrics or general surgery practice pending workup. INITIAL CONSULTATIONS CLEARANCE / MANAGEMENT Psychology [x] Dietitian [x] Cardiology [x] [] not ordered Pulmonary [] [x] not ordered Others [] []Heme/Onc []Psychiatry []Pain mgmt PSD [] Physician supervised diet: []None [x]3 mos []6 mos Preop diet [x] Preop low calory diet: []None [x]1 wk []2 wks []Ext. FINAL PRE-OP TESTING RESULTS Labwork [x] [x]Pre-op CBC [x]BMP []Serum Nicotine / Cotinine EKG [x] CXR [x] POST-OP MEDICATIONS Ulcer Ppx [] Omeprazole 20 mg PO []QD []BID Gallstone Ppx [] Ursodiol 300 mg []BID DVT Ppx [] DVT prophylaxis per final preop visit estimated risk Estimated calculated risk: % Schedule final pre-operative office visit with surgeon, pre-operative education class, and pre-operative exercise class prior to date of surgery ATTESTATION I reviewed with the patient the details of the proposed operation. The risks benefits and options were discussed. Risks included but were not limited to bleeding, infection, damage to other surrounding organs, cardio-pulmonary complications related to anesthesia, conversion from laparoscopic to and open procedure, the need for reoperative or endoscopic therapy, the potential for prolonged mechanical ventilation, and . All questions were fully answered to the patient's satisfaction and they wish to proceed with surgical intervention. I personally performed the evaluation and management of Mel Wall in the development of a treatment plan for this patient. I personally interviewed the patient and performed an individual physical examination. In addition, I discussed the patient's condition and treatment options with them. I have also reviewed and agree with the past medical, family and social history unless otherwise noted. All of the patient's questions were answered. I personally spent 60 minutes of time between the face to face encounter, physical exam, reviewing the medical history, coordinating the patient's care, counseling/educating the patient, ordering prescriptions/medications/tests/proc edures, interpreting results and documenting clinical information in the patient's electronic health record on the day of the encounter. Initial New [facility] surgical patient Navigation & Financial Counseling Discussion Patient Communication: In office SURGEON: [] RODOLFO [] AD [] MP [] TB [x] LM PROCEDURE: [] LRYGB [] LSG [] BECCA-S [] BECCA [] UNDECIDED [] REV: SPECIFY: Confirmed pt wants to continue with surgical program/plan [] YES [] NO (complete program withdrawal note/process) CO-MORBIDS: [] NONE [] DM []HTN [] JAGJIT []GERD [] OTH: PRIVATE PAY: [] NO []YES DATE OF INITIAL BENEFITS VERIFICATION: TRANSFER FU: [] YES [] NO PRIMARY INSURANCE: Payor: [facility] MEDICAID / Plan: [facility] MEDICAID ODM / Product Type: Medicaid HMO / BENEFIT ON PLAN: [] NO [] YES BENEFIT MAX: [] NO [] YES -- BENEFIT MAX: $ EMPLOYER: DIET AND EXERCISE (DE) REQUIREMENT PRIMARY [] NONE [x]3M [] 6M []9M [] Medicare 4 Months [] SPR (3M) []OTHER: SECONDARY INSURANCE: BENEFIT ON PLAN: [] NO [] YES BENEFIT MAX: [] NO [] YES -- BENEFIT MAX: $ AUTH REQUIRED FROM SECONDARY [] NO [] YES DIET AND EXERCISE REQUIREMENT SECONDARY [] NONE []3M [] 6M [] Medicare 4 months [] SPR (3M) []OTHER: ___ [x] Discussed with patient: Financial cost overview (document signed and pt given copy at new pt consult visit with surgeon), Initial appointments: Bariatric Nutrition Assessment (BNA) & Diet and Exercise (DE) Patient to look for yellow envelope in mail. This yellow envelope will contain orders for labs, testing and required clearances. Pt encouraged to complete early in program to prevent delays. Encourage blood work to be draw by 1st DE appointment. [x] Reviewed OOP cost, including: [] Optifast cost of approximately $130-140/week x weeks immediately prior to surgery - used to induce rapid weight loss which results in decrease in size of liver and therefore facilitates laparoscopically surgery approach. [x] Overview of inpatient admission benefits - estimated inpatient co-pays, deductibles and/or co-insurance - Estimated OOP costs form reviewed with patient, and copy given to patient at new pt visit. [x] Reviewed next steps with patient: 1) Scheduled at new pt surgeon visit: Bid Analyst (RD) for a Nutrition Assessment (BNA) and Pre-operative Diet and Exercise (DE) appointment #1. [x] Patient reminded to arrive 15 minutes early for check in. Late arrivals may need to be rescheduled. 2) Schedule: Diet and Exercise Apt #2 only scheduled after initial BNA and DE completed, 3) Behavioral Health apt scheduled after DE started. Reviewed rational and goal of Behavioral Health appointments. 4) [x] Reinforced need to cancel any WMI appointments 48 hours in advance. Cautioned NS/Same day cancellations may result in delay in program or program completion hold. Noted: DE series needs to be a monthly series or insurance company may require repeat of the entire series. 5) [x] Smoker/tobacco products including vaping: reviewed need for cessation before surgery clearance and life long abstinence after surgery for best outcomes. Patient navigation to surgery: [x] Explained to patient that average time from initial consult to date of surgery can be 6-8 months. - Process can take longer if there are cancelled appointments, delays in testing and/or additional clearances that needs to be completed. - Reviewed importance of patient active engagement in making and keeping appointments to keep the process moving. - Reinforced need to cancel appointments at least 48 hours in advance. Reviewed that instances of No Shows and Same Day Appointment Cancellations may result in program/surgery delay or hold. [x] Patient advised of importance of having voicemail and MyChart for office communications and lab/testing results before and after surgery. documented in this encounter [facility] 01-18-2024 Telephone encounter Note D/E switched to nsurg follow up [facility] 01-17-2024 Telephone encounter Note Ok. I will change her appointment to NSURG. [facility] Work Phone: 01-16-2024 Telephone encounter Note Noted. File pulled, message sent. T [facility] 01-16-2024 Miscellaneous Notes Noted. File pulled, message sent. Team please cancel any other testing, but ok for Psych and RD as below. Routing this to DR Steven for follow up. ----- Message from Serafin Taylor DO sent at 01/06/2024 4:29 PM EDT ----- Plan for proceeding without bariatric surgery. OK to have her see psych and RD, may be helpful for her medical weight loss. Dr. Steven, are we able to start her on Trulicity? Her goal weight is 210 lbs. Thanks! documented in this encounter [facility] 01-16-2024 Telephone encounter Note Patient is changing to NSURG per Dr. Taylor. --- Message from Serafin Taylor DO sent at 01/06/2024 4:29 PM EDT ----- Plan for proceeding without bariatric surgery. OK to have her see psych and RD, may be helpful for her medical weight loss. Dr. Steven, are we able to start her on Trulicity? Her goal weight is 210 lbs. Thanks! Psychology was already scheduled for 02/01. NPT- patient change to NSURG File pulled [facility] 01-16-2024 Miscellaneous Notes Patient is changing to NSURG per Dr. Taylor. --- Message from Serafin Taylor DO sent at 01/06/2024 4:29 PM EDT ----- Plan for proceeding without bariatric surgery. OK to have her see psych and RD, may be helpful for her medical weight loss. Dr. Steven, are we able to start her on Trulicity? Her goal weight is 210 lbs. Thanks! Psychology was already scheduled for 02/01. NPT- patient change to NSURG File pulled Addended by: VANE MARTE on: 01/13/2024 11:26 AM Modules accepted: Orders Images from the original note were not included. Per DR Taylor: Serafin Taylor, DO Za Guerrier PA-C; AKIRA Pike CNP Caller: Unspecified (Today, 8:29 AM) FYI... 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 EGD revealed nonsleeved stomach. At D1, there appeared to be an end-to-end duodenal enterostomy. There was no evidence of and an affernt limb. Colonoscopy revealed freely mobile bowel within the hernia sac. Patient's right colon and cecum appeared to be within the hernia as well. This is suggestive that the patient had a hepatic flexure mobilization during her duodenal switch procedure. Orders mailed Addended by: GAYLE ANDERSON on: 11/21/2023 10:24 AM Modules accepted: Orders Thanks. We have the operative notes that were accessible. The [address] Rehman at [facility] could not be located. I spoke to Medical Records myself. Addended by: ALLY EDWARD on: 11/18/2023 02:39 PM Modules accepted: Orders Pre op check list scanned to media, labs pended - UGI W/ SBFT, PLAN I have recommended proceeding with the evaluation and work-up for the primary procedure as outlined below: PATIENT SUMMARY Mel Taylor 38 y.o. female with Body mass index is 40.54 kg/m . 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 PCP: [facility] Michelle Perez INITIAL TESTING RESULTS Labwork [x] CMP, TSH, Fasting Lipid Profile, Mg, Zinc, Vit B1 (whole blood), Vit B12, 25-OH Vit D, Fe, Ferritin, Folate Tobacco [x] Serum Nicotine / Cotinine [] Negative [] Positive EGD [x] Dx: [] GERD [x] Dyspepsia [] Other LB sent request for EGD and c scope to ALS. Pathology [x] H. pylori [] Negative [] Positive UGI [x] [] not ordered US Abdomen [] [x] not ordered CT completed. JAGJIT eval [] [] On CPAP / Obtain settings Hematology [] [] Hypercoagulation panel Toxicology [] [] Urine drug screen [] EtOH screen Addtional [x] [x] Hgb A1c Additionally, we will perform an EGD/colonoscopy, upper GI swallow with small bowel follow-through. We will also obtain medical records from [facility] (~2016) and [facility] in [facility] (~2015 [place], ~2007 [place]). Pending results of these operative report, we will determine whether or not we need to proceed with an MRCP to assess for hepaticojejunostomy for further assessment. Patient will follow-up with Dr. Steven, for D&E and possibly for medical weight loss drugs if patient is not a candidate for bariatric surgery. Follow-up with me at bariatrics or general surgery practice pending workup. INITIAL CONSULTATIONS CLEARANCE / MANAGEMENT Psychology [x] Dietitian [x] Cardiology [x] [] not ordered Pulmonary [] [x] not ordered Others [] []Heme/Onc []Psychiatry []Pain mgmt PSD [] Physician supervised diet: []None [x]3 mos []6 mos Preop diet [x] Preop low calory diet: []None [x]1 wk []2 wks []Ext. FINAL PRE-OP TESTING RESULTS Labwork [x] [x]Pre-op CBC [x]BMP []Serum Nicotine / Cotinine EKG [x] CXR [x] POST-OP MEDICATIONS Ulcer Ppx [] Omeprazole 20 mg PO []QD []BID Gallstone Ppx [] Ursodiol 300 mg []BID DVT Ppx [] DVT prophylaxis per final preop visit estimated risk Estimated calculated risk: % Schedule final pre-operative office visit with surgeon, pre-operative education class, and pre-operative exercise class prior to date of surgery ATTESTATION I reviewed with the patient the details of the proposed operation. The risks benefits and options were discussed. Risks included but were not limited to bleeding, infection, damage to other surrounding organs, cardio-pulmonary complications related to anesthesia, conversion from laparoscopic to and open procedure, the need for reoperative or endoscopic therapy, the potential for prolonged mechanical ventilation, and . All questions were fully answered to the patient's satisfaction and they wish to proceed with surgical intervention. I personally performed the evaluation and management of Mel Wall in the development of a treatment plan for this patient. I personally interviewed the patient and performed an individual physical examination. In addition, I discussed the patient's condition and treatment options with them. I have also reviewed and agree with the past medical, family and social history unless otherwise noted. All of the patient's questions were answered. I personally spent 60 minutes of time between the face to face encounter, physical exam, reviewing the medical history, coordinating the patient's care, counseling/educating the patient, ordering prescriptions/medications/tests/proc edures, interpreting results and documenting clinical information in the patient's electronic health record on the day of the encounter. Initial New [facility] surgical patient Navigation & Financial Counseling Discussion Patient Communication: In office SURGEON: [] RODOLFO [] AD [] MP [] TB [x] LM PROCEDURE: [] LRYGB [] LSG [] BECCA-S [] BECCA [] UNDECIDED [] REV: SPECIFY: Confirmed pt wants to continue with surgical program/plan [] YES [] NO (complete program withdrawal note/process) CO-MORBIDS: [] NONE [] DM []HTN [] JAGJIT []GERD [] OTH: PRIVATE PAY: [] NO []YES DATE OF INITIAL BENEFITS VERIFICATION: TRANSFER FU: [] YES [] NO PRIMARY INSURANCE: Payor: [facility] MEDICAID / Plan: [facility] MEDICAID ODM / Product Type: Medicaid HMO / BENEFIT ON PLAN: [] NO [] YES BENEFIT MAX: [] NO [] YES -- BENEFIT MAX: $ EMPLOYER: DIET AND EXERCISE (DE) REQUIREMENT PRIMARY [] NONE [x]3M [] 6M []9M [] Medicare 4 Months [] SPR (3M) []OTHER: SECONDARY INSURANCE: BENEFIT ON PLAN: [] NO [] YES BENEFIT MAX: [] NO [] YES -- BENEFIT MAX: $ AUTH REQUIRED FROM SECONDARY [] NO [] YES DIET AND EXERCISE REQUIREMENT SECONDARY [] NONE []3M [] 6M [] Medicare 4 months [] SPR (3M) []OTHER: ___ [x] Discussed with patient: Financial cost overview (document signed and pt given copy at new pt consult visit with surgeon), Initial appointments: Bariatric Nutrition Assessment (BNA) & Diet and Exercise (DE) Patient to look for yellow envelope in mail. This yellow envelope will contain orders for labs, testing and required clearances. Pt encouraged to complete early in program to prevent delays. Encourage blood work to be draw by 1st DE appointment. [x] Reviewed OOP cost, including: [] Optifast cost of approximately $130-140/week x weeks immediately prior to surgery - used to induce rapid weight loss which results in decrease in size of liver and therefore facilitates laparoscopically surgery approach. [x] Overview of inpatient admission benefits - estimated inpatient co-pays, deductibles and/or co-insurance - Estimated OOP costs form reviewed with patient, and copy given to patient at new pt visit. [x] Reviewed next steps with patient: 1) Scheduled at new pt surgeon visit: Bid Analyst (RD) for a Nutrition Assessment (BNA) and Pre-operative Diet and Exercise (DE) appointment #1. [x] Patient reminded to arrive 15 minutes early for check in. Late arrivals may need to be rescheduled. 2) Schedule: Diet and Exercise Apt #2 only scheduled after initial BNA and DE completed, 3) Behavioral Health apt scheduled after DE started. Reviewed rational and goal of Behavioral Health appointments. 4) [x] Reinforced need to cancel any WMI appointments 48 hours in advance. Cautioned NS/Same day cancellations may result in delay in program or program completion hold. Noted: DE series needs to be a monthly series or insurance company may require repeat of the entire series. 5) [x] Smoker/tobacco products including vaping: reviewed need for cessation before surgery clearance and life long abstinence after surgery for best outcomes. Patient navigation to surgery: [x] Explained to patient that average time from initial consult to date of surgery can be 6-8 months. - Process can take longer if there are cancelled appointments, delays in testing and/or additional clearances that needs to be completed. - Reviewed importance of patient active engagement in making and keeping appointments to keep the process moving. - Reinforced need to cancel appointments at least 48 hours in advance. Reviewed that instances of No Shows and Same Day Appointment Cancellations may result in program/surgery delay or hold. [x] Patient advised of importance of having voicemail and MyChart for office communications and lab/testing results before and after surgery. documented in this encounter [facility] 01-13-2024 Note Addended by: VANE MARTE on: 01/13/2024 11:26 AM Modules accepted: Orders [facility] 01-13-2024 Note Addended by: VANE MARTE on: 01/13/2024 11:26 AM Modules accepted: Orders [facility] 01-13-2024 Note Addended by: VANE MARTE on: 01/13/2024 11:26 AM Modules accepted: Orders [facility] 01-13-2024 Note Addended by: VANE MARTE on: 01/13/2024 11:26 AM Modules accepted: Orders [facility] 01-13-2024 Note Addended by: VANE MARTE on: 01/13/2024 11:26 AM Modules accepted: Orders [facility] 01-13-2024 Note Addended by: VANE MARTE on: 01/13/2024 11:26 AM Modules accepted: Orders [facility] [facility] 01-13-2024 Miscellaneous Notes Addended by: VANE MARTE on: 01/13/2024 11:26 AM Modules accepted: Orders Images from the original note were not included. Per DR Taylor: DO Za Smith PA-C; AKIRA Pike CNP Caller: Unspecified (Today, 8:29 AM) FYI... 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 EGD revealed nonsleeved stomach. At D1, there appeared to be an end-to-end duodenal enterostomy. There was no evidence of and an affernt limb. Colonoscopy revealed freely mobile bowel within the hernia sac. Patient's right colon and cecum appeared to be within the hernia as well. This is suggestive that the patient had a hepatic flexure mobilization during her duodenal switch procedure. Orders mailed Addended by: GAYLE ANDERSON on: 11/21/2023 10:24 AM Modules accepted: Orders Thanks. We have the operative notes that were accessible. The [address] Rehman at [facility] could not be located. I spoke to Medical Records myself. Addended by: ALLY EDWARD on: 11/18/2023 02:39 PM Modules accepted: Orders Pre op check list scanned to media, labs pended - UGI W/ SBFT, PLAN I have recommended proceeding with the evaluation and work-up for the primary procedure as outlined below: PATIENT SUMMARY Mel Taylor 38 y.o. female with Body mass index is 40.54 kg/m . 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 PCP: [facility] Chris INITIAL TESTING RESULTS Labwork [x] CMP, TSH, Fasting Lipid Profile, Mg, Zinc, Vit B1 (whole blood), Vit B12, 25-OH Vit D, Fe, Ferritin, Folate Tobacco [x] Serum Nicotine / Cotinine [] Negative [] Positive EGD [x] Dx: [] GERD [x] Dyspepsia [] Other LB sent request for EGD and c scope to ALS. Pathology [x] H. pylori [] Negative [] Positive UGI [x] [] not ordered US Abdomen [] [x] not ordered CT completed. JAGJIT eval [] [] On CPAP / Obtain settings Hematology [] [] Hypercoagulation panel Toxicology [] [] Urine drug screen [] EtOH screen Addtional [x] [x] Hgb A1c Additionally, we will perform an EGD/colonoscopy, upper GI swallow with small bowel follow-through. We will also obtain medical records from [facility] (~2016) and [facility] in [facility] (~2015 [place], ~2007 [place]). Pending results of these operative report, we will determine whether or not we need to proceed with an MRCP to assess for hepaticojejunostomy for further assessment. Patient will follow-up with Dr. Steven, for D&E and possibly for medical weight loss drugs if patient is not a candidate for bariatric surgery. Follow-up with me at bariatrics or general surgery practice pending workup. INITIAL CONSULTATIONS CLEARANCE / MANAGEMENT Psychology [x] Dr. Rothman [x] Cardiology [x] [] not ordered Pulmonary [] [x] not ordered Others [] []Heme/Onc []Psychiatry []Pain mgmt PSD [] Physician supervised diet: []None [x]3 mos []6 mos Preop diet [x] Preop low calory diet: []None [x]1 wk []2 wks []Ext. FINAL PRE-OP TESTING RESULTS Labwork [x] [x]Pre-op CBC [x]BMP []Serum Nicotine / Cotinine EKG [x] CXR [x] POST-OP MEDICATIONS Ulcer Ppx [] Omeprazole 20 mg PO []QD []BID Gallstone Ppx [] Ursodiol 300 mg []BID DVT Ppx [] DVT prophylaxis per final preop visit estimated risk Estimated calculated risk: % Schedule final pre-operative office visit with surgeon, pre-operative education class, and pre-operative exercise class prior to date of surgery ATTESTATION I reviewed with the patient the details of the proposed operation. The risks benefits and options were discussed. Risks included but were not limited to bleeding, infection, damage to other surrounding organs, cardio-pulmonary complications related to anesthesia, conversion from laparoscopic to and open procedure, the need for reoperative or endoscopic therapy, the potential for prolonged mechanical ventilation, and . All questions were fully answered to the patient's satisfaction and they wish to proceed with surgical intervention. I personally performed the evaluation and management of Mel Wall in the development of a treatment plan for this patient. I personally interviewed the patient and performed an individual physical examination. In addition, I discussed the patient's condition and treatment options with them. I have also reviewed and agree with the past medical, family and social history unless otherwise noted. All of the patient's questions were answered. I personally spent 60 minutes of time between the face to face encounter, physical exam, reviewing the medical history, coordinating the patient's care, counseling/educating the patient, ordering prescriptions/medications/tests/proc edures, interpreting results and documenting clinical information in the patient's electronic health record on the day of the encounter. Initial New [facility] surgical patient Navigation & Financial Counseling Discussion Patient Communication: In office SURGEON: [] RODOLFO [] CECILIA [] MP [] TB [x] LM PROCEDURE: [] LRYGB [] LSG [] BECCA-S [] BECCA [] UNDECIDED [] REV: SPECIFY: Confirmed pt wants to continue with surgical program/plan [] YES [] NO (complete program withdrawal note/process) CO-MORBIDS: [] NONE [] DM []HTN [] JAGJIT []GERD [] OTH: PRIVATE PAY: [] NO []YES DATE OF INITIAL BENEFITS VERIFICATION: TRANSFER FU: [] YES [] NO PRIMARY INSURANCE: Payor: [facility] MEDICAID / Plan: [facility] MEDICAID ODM / Product Type: Medicaid HMO / BENEFIT ON PLAN: [] NO [] YES BENEFIT MAX: [] NO [] YES -- BENEFIT MAX: $ EMPLOYER: DIET AND EXERCISE (DE) REQUIREMENT PRIMARY [] NONE [x]3M [] 6M []9M [] Medicare 4 Months [] SPR (3M) []OTHER: SECONDARY INSURANCE: BENEFIT ON PLAN: [] NO [] YES BENEFIT MAX: [] NO [] YES -- BENEFIT MAX: $ AUTH REQUIRED FROM SECONDARY [] NO [] YES DIET AND EXERCISE REQUIREMENT SECONDARY [] NONE []3M [] 6M [] Medicare 4 months [] SPR (3M) []OTHER: ___ [x] Discussed with patient: Financial cost overview (document signed and pt given copy at new pt consult visit with surgeon), Initial appointments: Bariatric Nutrition Assessment (BNA) & Diet and Exercise (DE) Patient to look for yellow envelope in mail. This yellow envelope will contain orders for labs, testing and required clearances. Pt encouraged to complete early in program to prevent delays. Encourage blood work to be draw by 1st DE appointment. [x] Reviewed OOP cost, including: [] Optifast cost of approximately $130-140/week x weeks immediately prior to surgery - used to induce rapid weight loss which results in decrease in size of liver and therefore facilitates laparoscopically surgery approach. [x] Overview of inpatient admission benefits - estimated inpatient co-pays, deductibles and/or co-insurance - Estimated OOP costs form reviewed with patient, and copy given to patient at new pt visit. [x] Reviewed next steps with patient: 1) Scheduled at new pt surgeon visit: Bid Analyst (RD) for a Nutrition Assessment (BNA) and Pre-operative Diet and Exercise (DE) appointment #1. [x] Patient reminded to arrive 15 minutes early for check in. Late arrivals may need to be rescheduled. 2) Schedule: Diet and Exercise Apt #2 only scheduled after initial BNA and DE completed, 3) Behavioral Health apt scheduled after DE started. Reviewed rational and goal of Behavioral Health appointments. 4) [x] Reinforced need to cancel any WMI appointments 48 hours in advance. Cautioned NS/Same day cancellations may result in delay in program or program completion hold. Noted: DE series needs to be a monthly series or insurance company may require repeat of the entire series. 5) [x] Smoker/tobacco products including vaping: reviewed need for cessation before surgery clearance and life long abstinence after surgery for best outcomes. Patient navigation to surgery: [x] Explained to patient that average time from initial consult to date of surgery can be 6-8 months. - Process can take longer if there are cancelled appointments, delays in testing and/or additional clearances that needs to be completed. - Reviewed importance of patient active engagement in making and keeping appointments to keep the process moving. - Reinforced need to cancel appointments at least 48 hours in advance. Reviewed that instances of No Shows and Same Day Appointment Cancellations may result in program/surgery delay or hold. [x] Patient advised of importance of having voicemail and MyChart for office communications and lab/testing results before and after surgery. documented in this encounter [facility] 01-10-2024 Telephone encounter Note Team please cancel any other testing, but ok for Psych and RD as below. Routing this to DR Steven for follow up. [facility] Work Phone: 01-09-2024 Telephone encounter Note ----- Message from Serafin Taylor DO sent at 01/06/2024 4:29 PM EDT ----- Plan for proceeding without bariatric surgery. OK to have her see psych and RD, may be helpful for her medical weight loss. Dr. Steven, are we able to start her on Trulicity? Her goal weight is 210 lbs. Thanks! [facility] 12-29-2023 Emergency department Note pt discharged to waiting room where her sister is picking her up Dayanara Roth RN 12/29/23 1550 [facility] 12-29-2023 Emergency department Note pt discharged to waiting room where her sister is picking her up Dayanara Roth RN 12/29/23 1550 [facility] EMERGENCY DEPT EMERGENCY DEPARTMENT ENCOUNTER Pt Name: Mel Wall Birthdate 1985 Date of evaluation: 12/29/2023 Provider: Satish Charlton DO CHIEF COMPLAINT Chief Complaint Patient presents with Abdominal Pain HISTORY OF PRESENT ILLNESS (Location/Symptom, Timing/Onset,Context/Setting, Quality, Duration, Modifying Factors, Severity) Note limiting factors. JACQUELYN Wall is a 38 y.o. female who presents to the emergency department complaining of abdominal pain. She has a history of abdominal issues with a hernia of the abdominal area. Been dealing this with this for years. And is going to have surgery next month she hopes. She had a recent EGD colonoscopy and swallow study. Today she was having pain and nausea and vomiting and she called her surgeon and they told her to come the emergency department to be evaluated Nursing Notes were reviewed. REVIEW OFSYSTEMS (2+ for level 4; 10+ hernia. Her hernia is going to be 6 next months she hopes. She just had an EGD and a colonoscopy and a swallow study recently purulent. level 5) Review of Systems 10 systems reviewed and negative except mentioned above PAST MEDICAL HISTORY Past Medical History: Diagnosis Date Abdominal hernia Abdominal pain Anxiety Bipolar affective (HCC) Depression Morbid obesity, unspecified obesity type (HCC) SURGICAL HISTORY Past Surgical History: Procedure Laterality Date APPENDECTOMY BILIOPANCREATIC DIVERSION 2007 DR Rey downey duodenal switch CHOLECYSTECTOMY COLONOSCOPY N/A 11/29/2023 Performed by Serafin Taylor DO at [facility] ENDOSCOPY HERNIA REPAIR TONSILLECTOMY CURRENT MEDICATIONS Previous Medications BUSPIRONE (BUSPAR) 30 MG TABLET Take 30 mg by mouth in the morning and 30 mg in the evening. FLUOXETINE (PROZAC) 40 MG CAPSULE Take 80 mg by mouth in the morning. METFORMIN XR (GLUCOPHAGE-XR) 500 MG 24 HR TABLET Take 1 tablet (500 mg) by mouth with evening meal. ALLERGIES Ketorolac and Ondansetron FAMILY HISTORY Family History Problem Relation Name Age of Onset Hypertension Father Diabetes Father SOCIAL HISTORY Social History Socioeconomic History Marital status: Single Tobacco Use Smoking status: Never Smokeless tobacco: Never Substance and Sexual Activity Alcohol use: Not Currently Drug use: Yes Frequency: 2.0 times per week Types: Marijuana Sexual activity: Not Currently Social Determinants of Health Transportation Needs: No Transportation Needs (10/19/2023) PRAPARE - Transportation Lack of Transportation (Medical): No Lack of Transportation (Non-Medical): No Housing Stability: Low Risk (10/19/2023) Housing Stability Vital Sign Unable to Pay for Housing in the Last Year: No Number of Places Lived in the Last Year: 1 Unstable Housing in the Last Year: No SCREENINGS PHYSICAL EXAM (up to 7 for level 4, 8 ormore for level 5) ED Triage Vitals [12/29/23 1328] Temp Heart Rate Resp BP 36 C (96.8 F) 73 14 118/73 SpO2 Temp Source Heart Rate Source Patient Position 99 % Temporal Monitor -- BP Location FiO2 (%) -- -- Physical Exam Vitals and nursing note reviewed. Constitutional: General: She is not in acute distress. Appearance: She is well-developed. HENT: Head: Normocephalic and atraumatic. Eyes: Conjunctiva/sclera: Conjunctivae normal. Cardiovascular: Rate and Rhythm: Normal rate and regular rhythm. Heart sounds: No murmur heard. Pulmonary: Effort: Pulmonary effort is normal. No respiratory distress. Breath sounds: Normal breath sounds. Abdominal: Palpations: Abdomen is soft. Tenderness: There is generalized abdominal tenderness. Comments: Patient has scars in her abdomen and obvious deformity to her abdomen Musculoskeletal: General: No swelling. Cervical back: Neck supple. Skin: General: Skin is warm and dry. Capillary Refill: Capillary refill takes less than 2 seconds. Neurological: Mental Status: She is alert. Psychiatric: Mood and Affect: Mood normal. DIAGNOSTIC RESULTS EKG (Per Emergency Physician): RADIOLOGY (Per Emergency Physician): Interpretation per the Radiologist below, ifavailable at the time of this note: No orders to display ED BEDSIDE ULTRASOUND: Performed by ED Physician - none LABS: Labs Reviewed COMPREHENSIVE METABOLIC PANEL - Abnormal Result Value SODIUM 135 POTASSIUM 4.2 CHLORIDE 104 CARBON DIOXIDE 22 ANION GAP 9 UREA NITROGEN 15 CREATININE 0.47 (*) GLUCOSE 102 (*) CALCIUM 9.1 AST (SGOT) 20 ALT 17 ALKALINE PHOSPHATASE 46 ALBUMIN 4.4 BILIRUBIN, TOTAL 0.3 TOTAL PROTEIN 7.2 eGFR >90.0 COMPLETE URINALYSIS - Abnormal Color, Urine Light Yellow Clarity, Urine Turbid (*) pH, Urine 6.5 Leukocytes, Urine Negative Nitrite, Urine Negative Protein, Urine Negative Glucose, Urine Normal Bilirubin, Urine Negative Ketones, Urine Negative Urobilinogen, Urine Normal Blood, Urine Negative SPECIFIC GRAVITY OF URINE (NUMERIC) 1.018 CBC WITH AUTO DIFFERENTIAL - Normal Auto WBC 8.9 RBC 4.36 Hemoglobin 13.6 Hematocrit 40.4 MCV 92.7 MCH 31.2 MCHC 33.7 RDW 12.4 Platelets 282 MPV 9.0 nRBC 0.0 Neutrophils Relative 58.3 Lymphocytes Relative 31.3 Monocytes Relative 6.1 Eosinophils Relative 3.7 Basophils Relative 0.3 Immature Grans % 0.3 Neutrophils Absolute 5.2 Lymphocytes Absolute 2.8 Monocytes Absolute 0.5 Eosinophils Absolute 0.3 Basophils Absolute 0.0 Immature Grans Absolute 0.0 LIPASE - Normal LIPASE 199 COMPLETE URINALYSIS WITH REFLEX TO CULTURE Narrative: The following orders were created for panel order Urinalysis Complete with reflex to Culture. Procedure Abnormality Status --------- ------ Complete Urinalysis[[id number]] Abnormal Final result Please view results for these tests on the individual orders. All other labs were within normal range or not returned as of this dictation. EMERGENCY DEPARTMENT COURSE and DIFFERENTIALDIAGNOSIS/MDM: Vitals: Vitals: 12/29/23 1325 12/29/23 1328 BP: 118/73 Pulse: 73 Resp: 14 Temp: 36 C (96.8 F) TempSrc: Temporal SpO2: 99% Weight: 117 kg (259 lb) Height: 1.651 m (5' 5) Medications HYDROmorphone (Dilaudid) injection 0.5 mg (0.5 mg IntraVENous Given 12/29/23 1349) sodium chloride 0.9 % bolus 1,000 mL (0 mL IntraVENous Stopped 12/29/23 1448) promethazine (Phenergan) injection 12.5 mg (12.5 mg IntraMUSCular Given 12/29/23 1353) HYDROmorphone (Dilaudid) injection 0.5 mg (0.5 mg IntraVENous Given 12/29/23 1502) Medical Decision Making Problems Addressed: Generalized abdominal pain: complicated acute illness or injury Amount and/or Complexity of Data Reviewed Labs: ordered. Risk Prescription drug management. History and physical was obtained. Dialysis had of lot of abdominal issues pain issues. Scheduled for surgery for her hernia issues and abdominal issues next month. Blood work was unremarkable. She was given pain medication antiemetics fluid she feels better at this time. I will write her for Phenergan. And also small quantity of Percocet for pain and she written off work for tomorrow and she will be discharged home with things abdominal pain. She is to return if any problems concerns. Additionally I did talk to Dr. Feng after the patient was of her condition and then did write her for small quantity Percocet and Phenergan. REVAL: CRITICAL CARE TIME Total Critical Care anne-marie in the process of being discharged. I did notify hime was minutes, excluding separatelyreportable procedures. There was a high probability ofclinically significant/life threatening deterioration in the patient's condition which required my urgent intervention. CONSULTS: None PROCEDURES: Unless otherwise noted below, none Procedures IMPRESSION 1. Generalized abdominal pain DISPOSITION/PLAN DISPOSITION Discharge 12/29/2023 03:26:58 PM PATIENT REFERRED TO: Serafin Taylor DO [address] [place] [address] [address] [id number] In 1 day DISCHARGE MEDICATIONS: New Prescriptions OXYCODONE-ACETAMINOPHEN (PERCOCET) 5-325 MG TABLET Take 1 tablet by mouth every 6 hours as needed for severe pain (7-10) for up to 3 days. PROMETHAZINE (PHENERGAN) 25 MG TABLET Take 1 tablet (25 mg) by mouth Daily as needed for nausea or vomiting for up to 5 days. @[facility]([id number]:LAST:1)@ (Please note: Portions of this note were completed with a voice recognition program. Efforts were made to edit thedictations but occasionally words and phrases are mis-transcribed.) Form [id number] Satish Charlton DO (electronically signed) Emergency Medicine Provider Satish Charlton DO 12/29/23 1532 Satish Charlton DO 12/29/23 1545 documented in this encounter [facility] 12-29-2023 Hospital Discharge instructions Satish Charlton DO - 12/29/2023 3:27 PM EDT Return if increasing pain problems or concerns. Any difficulties return to the emergency department. Call your surgeon today or tomorrow. Any difficulties return back to the emergency department documented in this encounter [facility] 12-29-2023 Physician Emergency department Note [facility] EMERGENCY DEPT EMERGENCY DEPARTMENT ENCOUNTER Pt Name: Mel Wall Birthdate 1985 Date of evaluation: 12/29/2023 Provider: Satish Charlton DO CHIEF COMPLAINT Chief Complaint Patient presents with Abdominal Pain HISTORY OF PRESENT ILLNESS (Location/Symptom, Timing/Onset,Context/Setting, Quality, Duration, Modifying Factors, Severity) Note limiting factors. HPI Mel Wall is a 38 y.o. female who presents to the emergency department complaining of abdominal pain. She has a history of abdominal issues with a hernia of the abdominal area. Been dealing this with this for years. And is going to have surgery next month she hopes. She had a recent EGD colonoscopy and swallow study. Today she was having pain and nausea and vomiting and she called her surgeon and they told her to come the emergency department to be evaluated Nursing Notes were reviewed. REVIEW OFSYSTEMS (2+ for level 4; 10+ hernia. Her hernia is going to be 6 next months she hopes. She just had an EGD and a colonoscopy and a swallow study recently purulent. level 5) Review of Systems 10 systems reviewed and negative except mentioned above PAST MEDICAL HISTORY Past Medical History: Diagnosis Date Abdominal hernia Abdominal pain Anxiety Bipolar affective (HCC) Depression Morbid obesity, unspecified obesity type (HCC) SURGICAL HISTORY Past Surgical History: Procedure Laterality Date APPENDECTOMY BILIOPANCREATIC DIVERSION 2007 DR Rey downey duodenal switch CHOLECYSTECTOMY COLONOSCOPY N/A 11/29/2023 Performed by Serafin Taylor DO at [facility] ENDOSCOPY HERNIA REPAIR TONSILLECTOMY CURRENT MEDICATIONS Previous Medications BUSPIRONE (BUSPAR) 30 MG TABLET Take 30 mg by mouth in the morning and 30 mg in the evening. FLUOXETINE (PROZAC) 40 MG CAPSULE Take 80 mg by mouth in the morning. METFORMIN XR (GLUCOPHAGE-XR) 500 MG 24 HR TABLET Take 1 tablet (500 mg) by mouth with evening meal. ALLERGIES Ketorolac and Ondansetron FAMILY HISTORY Family History Problem Relation Name Age of Onset Hypertension Father Diabetes Father SOCIAL HISTORY Social History Socioeconomic History Marital status: Single Tobacco Use Smoking status: Never Smokeless tobacco: Never Substance and Sexual Activity Alcohol use: Not Currently Drug use: Yes Frequency: 2.0 times per week Types: Marijuana Sexual activity: Not Currently Social Determinants of Health Transportation Needs: No Transportation Needs (10/19/2023) PRAPARE - Transportation Lack of Transportation (Medical): No Lack of Transportation (Non-Medical): No Housing Stability: Low Risk (10/19/2023) Housing Stability Vital Sign Unable to Pay for Housing in the Last Year: No Number of Places Lived in the Last Year: 1 Unstable Housing in the Last Year: No SCREENINGS PHYSICAL EXAM (up to 7 for level 4, 8 ormore for level 5) ED Triage Vitals [12/29/23 1328] Temp Heart Rate Resp BP 36 C (96.8 F) 73 14 118/73 SpO2 Temp Source Heart Rate Source Patient Position 99 % Temporal Monitor -- BP Location FiO2 (%) -- -- Physical Exam Vitals and nursing note reviewed. Constitutional: General: She is not in acute distress. Appearance: She is well-developed. HENT: Head: Normocephalic and atraumatic. Eyes: Conjunctiva/sclera: Conjunctivae normal. Cardiovascular: Rate and Rhythm: Normal rate and regular rhythm. Heart sounds: No murmur heard. Pulmonary: Effort: Pulmonary effort is normal. No respiratory distress. Breath sounds: Normal breath sounds. Abdominal: Palpations: Abdomen is soft. Tenderness: There is generalized abdominal tenderness. Comments: Patient has scars in her abdomen and obvious deformity to her abdomen Musculoskeletal: General: No swelling. Cervical back: Neck supple. Skin: General: Skin is warm and dry. Capillary Refill: Capillary refill takes less than 2 seconds. Neurological: Mental Status: She is alert. Psychiatric: Mood and Affect: Mood normal. DIAGNOSTIC RESULTS EKG (Per Emergency Physician): RADIOLOGY (Per Emergency Physician): Interpretation per the Radiologist below, ifavailable at the time of this note: No orders to display ED BEDSIDE ULTRASOUND: Performed by ED Physician - none LABS: Labs Reviewed COMPREHENSIVE METABOLIC PANEL - Abnormal Result Value SODIUM 135 POTASSIUM 4.2 CHLORIDE 104 CARBON DIOXIDE 22 ANION GAP 9 UREA NITROGEN 15 CREATININE 0.47 (*) GLUCOSE 102 (*) CALCIUM 9.1 AST (SGOT) 20 ALT 17 ALKALINE PHOSPHATASE 46 ALBUMIN 4.4 BILIRUBIN, TOTAL 0.3 TOTAL PROTEIN 7.2 eGFR >90.0 COMPLETE URINALYSIS - Abnormal Color, Urine Light Yellow Clarity, Urine Turbid (*) pH, Urine 6.5 Leukocytes, Urine Negative Nitrite, Urine Negative Protein, Urine Negative Glucose, Urine Normal Bilirubin, Urine Negative Ketones, Urine Negative Urobilinogen, Urine Normal Blood, Urine Negative SPECIFIC GRAVITY OF URINE (NUMERIC) 1.018 CBC WITH AUTO DIFFERENTIAL - Normal Auto WBC 8.9 RBC 4.36 Hemoglobin 13.6 Hematocrit 40.4 MCV 92.7 MCH 31.2 MCHC 33.7 RDW 12.4 Platelets 282 MPV 9.0 nRBC 0.0 Neutrophils Relative 58.3 Lymphocytes Relative 31.3 Monocytes Relative 6.1 Eosinophils Relative 3.7 Basophils Relative 0.3 Immature Grans % 0.3 Neutrophils Absolute 5.2 Lymphocytes Absolute 2.8 Monocytes Absolute 0.5 Eosinophils Absolute 0.3 Basophils Absolute 0.0 Immature Grans Absolute 0.0 LIPASE - Normal LIPASE 199 COMPLETE URINALYSIS WITH REFLEX TO CULTURE Narrative: The following orders were created for panel order Urinalysis Complete with reflex to Culture. Procedure Abnormality Status --------- ------ Complete Urinalysis[[id number]] Abnormal Final result Please view results for these tests on the individual orders. All other labs were within normal range or not returned as of this dictation. EMERGENCY DEPARTMENT COURSE and DIFFERENTIALDIAGNOSIS/MDM: Vitals: Vitals: 12/29/23 1325 12/29/23 1328 BP: 118/73 Pulse: 73 Resp: 14 Temp: 36 C (96.8 F) TempSrc: Temporal SpO2: 99% Weight: 117 kg (259 lb) Height: 1.651 m (5' 5) Medications HYDROmorphone (Dilaudid) injection 0.5 mg (0.5 mg IntraVENous Given 12/29/23 1349) sodium chloride 0.9 % bolus 1,000 mL (0 mL IntraVENous Stopped 12/29/23 1448) promethazine (Phenergan) injection 12.5 mg (12.5 mg IntraMUSCular Given 12/29/23 1353) HYDROmorphone (Dilaudid) injection 0.5 mg (0.5 mg IntraVENous Given 12/29/23 1502) Medical Decision Making Problems Addressed: Generalized abdominal pain: complicated acute illness or injury Amount and/or Complexity of Data Reviewed Labs: ordered. Risk Prescription drug management. History and physical was obtained. Dialysis had of lot of abdominal issues pain issues. Scheduled for surgery for her hernia issues and abdominal issues next month. Blood work was unremarkable. She was given pain medication antiemetics fluid she feels better at this time. I will write her for Phenergan. And also small quantity of Percocet for pain and she written off work for tomorrow and she will be discharged home with things abdominal pain. She is to return if any problems concerns. Additionally I did talk to Dr. Feng after the patient was of her condition and then did write her for small quantity Percocet and Phenergan. REVAL: CRITICAL CARE TIME Total Critical Care anne-marie in the process of being discharged. I did notify hime was minutes, excluding separatelyreportable procedures. There was a high probability ofclinically significant/life threatening deterioration in the patient's condition which required my urgent intervention. CONSULTS: None PROCEDURES: Unless otherwise noted below, none Procedures IMPRESSION 1. Generalized abdominal pain DISPOSITION/PLAN DISPOSITION Discharge 12/29/2023 03:26:58 PM PATIENT REFERRED TO: Serafin Taylor DO [address] [place] [address] [address] [id number] In 1 day DISCHARGE MEDICATIONS: New Prescriptions OXYCODONE-ACETAMINOPHEN (PERCOCET) 5-325 MG TABLET Take 1 tablet by mouth every 6 hours as needed for severe pain (7-10) for up to 3 days. PROMETHAZINE (PHENERGAN) 25 MG TABLET Take 1 tablet (25 mg) by mouth Daily as needed for nausea or vomiting for up to 5 days. @[facility]([id number]:LAST:1)@ (Please note: Portions of this note were completed with a voice recognition program. Efforts were made to edit thedictations but occasionally words and phrases are mis-transcribed.) Form [id number] Satish Charlton DO (electronically signed) Emergency Medicine Provider Satish Charlton DO 12/29/23 1532 Satish Charlton DO 12/29/23 1545 [facility] [place] 12-29-2023 Telephone encounter Note Closing this encounter as have requested office visit for pt in another encounter to address hernia concerns/pain. [facility] [employer] Work Phone: 12-29-2023 Miscellaneous Notes Closing this encounter as have requested office visit for pt in another encounter to address hernia concerns/pain. S: Patient spoke with [facility] nurse regarding hernia pain. B: Onset of symptoms got worse on Tuesday12/27/23. A: Hernia in the front abdomen, pain is constant now, rates as moderate, vomiting 4-5 times since last night and nauseated, not able to keep fluids down since last night., out of Phenergan. Abdomen feels finley than normal. R: Instructed to be seen in the ER, patient would rather be seen in the office if able. Patient understands care advice. No further needs at this time. Patient instructed to call back with new or worsening symptoms. Reason for Disposition MILD TO MODERATE constant pain lasting > 2 hours Protocols used: Abdominal Pain - [id number] documented in this encounter [facility] 12-29-2023 Telephone encounter Note S: Patient spoke with [facility] nurse regarding hernia pain. B: Onset of symptoms got worse on Tuesday12/27/23. A: Hernia in the front abdomen, pain is constant now, rates as moderate, vomiting 4-5 times since last night and nauseated, not able to keep fluids down since last night., out of Phenergan. Abdomen feels finley than normal. R: Instructed to be seen in the ER, patient would rather be seen in the office if able. Patient understands care advice. No further needs at this time. Patient instructed to call back with new or worsening symptoms. Reason for Disposition MILD TO MODERATE constant pain lasting > 2 hours Protocols used: Abdominal Pain - [id number] [facility] 12-29-2023 History of Present illness Narrative [facility] SURGICAL WEIGHT LOSS MANAGEMENT PROGRAM SUPERVISED DIET AND EXERCISE ROOMING: INITIAL VISIT Patient: Mel Wall Date of : 1985 Service Date: 12/29/2023 Patient is here today to initiate physician-supervised diet and exercise as required by their insurance company prior to approval for weight loss surgery. This patient is alone for the evaluation today This is visit 1 of 3 required visits. Weight Metrics: (From Surgical Wet Loss Management) Today's Vital Signs: Non-Surgical Initial Eval Consult Date: 12/29/23 Initial Height: 5' 5 (165.1 cm) Initial Weight: 253 lb 3.2 oz (115 kg) [place] Body Weight: 134 lb (60.8 kg) Initial BMI: 42.13 Initial Body Fat %: 50.56 EBW: 119 lb (From NonSurgical Weight Loss Tracker) Falls Risk Assessment Patient does not take medications which affect BP or mental status Patient does not have newly prescribed or changed dosage of medications within past 30 days which affect BP or mental status Patient has not fallen in the past 2 months Patient uses the following ambulatory assistive devices: none Patient states the presence of the following traits which increases risk of fall: none Patient is noton home O2 Have you received packet of information by mail from our office which includes: Surgical Checklist, lab orders & referral information? Yes Completed by: Sandra Cutler LPN [facility] SURGICAL WEIGHT LOSS MANAGEMENT PROGRAM PHYSICIAN SUPERVISED DIET AND EXERCISE SURGICAL PREPARATORY REGIMEN PROGRESS NOTE INITIAL EVALUATION Patient: Mel Wall Service Date: 12/29/23 Date of : 1985 Navigation Plan: Patient History/Assessment Summary: The patient is a pleasant 38 y.o. year old female, who stands Height: 5' 5 (165.1 cm) tall with a weight of Weight: 253 lb 3.2 oz (115 kg) pounds, resulting in a BMI of Body mass index is 42.13 kg/m . kg/m2. She has been overweight for 10+ years, has tried and failed multiple previous diet attempts, and is now in the process of undergoing evaluation for surgical treatment of their obesity . She is here today to initiate monthly physician supervised diet and exercise as part of their surgical preparatory regimen. History: Past Medical History: Diagnosis Date Abdominal hernia Abdominal pain Anxiety Bipolar affective (HCC) Depression Morbid obesity, unspecified obesity type (HCC) Past Surgical History: Procedure Laterality Date APPENDECTOMY BILIOPANCREATIC DIVERSION 2007 DR Rey downey duodenal switch CHOLECYSTECTOMY COLONOSCOPY N/A 11/29/2023 Performed by Serafin Taylor DO at [facility] ENDOSCOPY HERNIA REPAIR TONSILLECTOMY Family History Problem Relation Name Age of Onset Hypertension Father Diabetes Father Social History Tobacco Use Smoking status: Never Smokeless tobacco: Never Substance Use Topics Alcohol use: Not Currently This patient's excess weight is causing the following co-morbid conditions at this time:Other hernia Initial Diet & Exercise/SPR Visit Weight Metrics: Date of Initial Diet & Exercise Visit: Consult Date: 12/29/23 Initial Weight: Initial Weight: 253 lb 3.2 oz (115 kg) Initial BMI: Initial BMI: 42.13 [place] Body Weight: [place] Body Weight: 134 lb (60.8 kg) Excess Body Weight: EBW: 119 lb General: This patient is alert and oriented X3 Physical Examination: BP 115/77 Pulse 92 Ht 5' 5 (1.651 m) Wt 253 lb 3.2 oz (115 kg) BMI 42.13 kg/m General: This patient is obese, and is in no apparent distress. Psychological: Patient is awake, alert and oriented to person, place and time Patient's mood is normal affect Current Diet This patient s current diet is: 50-80% meal plan Reviewed PAST DIET HISTORY FORM and CURRENT DIET HISTORY FORM with patient (located in [facility] [place]) Her diet contains adequate amounts of protein, adequate amounts of healthy fats, adequate amounts of green, leafy vegetables, and adequate amounts of fruits. Her comfort foods include: none Current Activity This patient currently does exercise for 20+ per session, 5 times per week, including the following: walking. Current Eating Behaviors This patients demonstrates the following behaviors as they relate to her eating: skipping meals She eats approximately 1-2 times per day. Her last meal/snack was at 6-7 PM. Plan: Obesity Continue current management, continue/start weight loss program Start metformin 500 mg Discuss side effects and titration Hernia Continue current management, continue weight loss program stable Advised patient that She must adhere to regular monthly visits to meet the requirements of her insurance company. Additionally, She must lose approximately one pound per month to demonstrate readiness for the changes that will be required following surgery. Physician Diet Recommendations provided to patient Patient to return for follow up in one month Current Meds Patient's Medications New Prescriptions No medications on file Previous Medications BUSPIRONE (BUSPAR) 30 MG TABLET Take 30 mg by mouth in the morning and 30 mg in the evening. FLUOXETINE (PROZAC) 40 MG CAPSULE Take 80 mg by mouth in the morning. Modified Medications No medications on file Discontinued Medications No medications on file I spent a total of 45 minutes on the day of the visit in counseling, discussing lifestyle changes that are pertinent to a successful life after bariatric surgery; and reviewing the chart including available communication from the surgeon. 1.Education on meal plan,meal structure, meal preps, shopping list 2. Discussion on elements of behavioral strategies such self-monitoring, controlling and modifying the stimuli that activate eating;slowing down the eating process;goal-setting on the process,behavioral raquel and reinforcement,cognitive restructuring, problem-solving,assertiveness training. 3. Physical activity - build fitness to aerobic physical activity 150-300 min/wk and strength training 2-3 times per wk 4.Recommendation on do not use nicotine and alcohol before and after surgery is provided 5. For women of childbearing age recommendation to postpone until 12-18 month after surgery is provided 6. Hernia Is associated with obesity and weight loss is discussed as a treatment option for hernia 7. Healthy lifestyle habits and their role in success after bariatric surgery discussed The patient was seen and a full chart review was performed.Clinical documentation is updated and completed. documented in this encounter [facility] 11-29-2023 Telephone encounter Note Images from the original note were not included. Per DR Taylor: DO Za Smith PA-C; AKIRA Pike CNP Caller: Unspecified (Today, 8:29 AM) FYI... 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 EGD revealed nonsleeved stomach. At D1, there appeared to be an end-to-end duodenal enterostomy. There was no evidence of and an affernt limb. Colonoscopy revealed freely mobile bowel within the hernia sac. Patient's right colon and cecum appeared to be within the hernia as well. This is suggestive that the patient had a hepatic flexure mobilization during her duodenal switch procedure. [facility] Work Phone: 11-29-2023 Miscellaneous Notes Images from the original note were not included. Per DR Taylor: DO Za Smith PA-C; AKIRA Pike CNP Caller: Unspecified (Today, 8:29 AM) FYI... 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 EGD revealed nonsleeved stomach. At D1, there appeared to be an end-to-end duodenal enterostomy. There was no evidence of and an affernt limb. Colonoscopy revealed freely mobile bowel within the hernia sac. Patient's right colon and cecum appeared to be within the hernia as well. This is suggestive that the patient had a hepatic flexure mobilization during her duodenal switch procedure. Orders mailed Addended by: GAYLE ANDERSON on: 11/21/2023 10:24 AM Modules accepted: Orders Thanks. We have the operative notes that were accessible. The [address] Rehman at [facility] could not be located. I spoke to Medical Records myself. Addended by: ALLY EDWARD on: 11/18/2023 02:39 PM Modules accepted: Orders Pre op check list scanned to media, labs pended - UGI W/ SBFT, PLAN I have recommended proceeding with the evaluation and work-up for the primary procedure as outlined below: PATIENT SUMMARY Mel Taylor 38 y.o. female with Body mass index is 40.54 kg/m . 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 PCP: [facility] INITIAL TESTING RESULTS Labwork [x] CMP, TSH, Fasting Lipid Profile, Mg, Zinc, Vit B1 (whole blood), Vit B12, 25-OH Vit D, Fe, Ferritin, Folate Tobacco [x] Serum Nicotine / Cotinine [] Negative [] Positive EGD [x] Dx: [] GERD [x] Dyspepsia [] Other LB sent request for EGD and c scope to ALS. Pathology [x] H. pylori [] Negative [] Positive UGI [x] [] not ordered US Abdomen [] [x] not ordered CT completed. JAGJIT eval [] [] On CPAP / Obtain settings Hematology [] [] Hypercoagulation panel Toxicology [] [] Urine drug screen [] EtOH screen Addtional [x] [x] Hgb A1c Additionally, we will perform an EGD/colonoscopy, upper GI swallow with small bowel follow-through. We will also obtain medical records from [facility] (~2016) and [facility] in [facility] (~2015 [place], ~2007 [place]). Pending results of these operative report, we will determine whether or not we need to proceed with an MRCP to assess for hepaticojejunostomy for further assessment. Patient will follow-up with Dr. Steven, for D&E and possibly for medical weight loss drugs if patient is not a candidate for bariatric surgery. Follow-up with me at bariatrics or general surgery practice pending workup. INITIAL CONSULTATIONS CLEARANCE / MANAGEMENT Psychology [x] Dr. Troncosoitimo [x] Cardiology [x] [] not ordered Pulmonary [] [x] not ordered Others [] []Heme/Onc []Psychiatry []Pain mgmt PSD [] Physician supervised diet: []None [x]3 mos []6 mos Preop diet [x] Preop low calory diet: []None [x]1 wk []2 wks []Ext. FINAL PRE-OP TESTING RESULTS Labwork [x] [x]Pre-op CBC [x]BMP []Serum Nicotine / Cotinine EKG [x] CXR [x] POST-OP MEDICATIONS Ulcer Ppx [] Omeprazole 20 mg PO []QD []BID Gallstone Ppx [] Ursodiol 300 mg []BID DVT Ppx [] DVT prophylaxis per final preop visit estimated risk Estimated calculated risk: % Schedule final pre-operative office visit with surgeon, pre-operative education class, and pre-operative exercise class prior to date of surgery ATTESTATION I reviewed with the patient the details of the proposed operation. The risks benefits and options were discussed. Risks included but were not limited to bleeding, infection, damage to other surrounding organs, cardio-pulmonary complications related to anesthesia, conversion from laparoscopic to and open procedure, the need for reoperative or endoscopic therapy, the potential for prolonged mechanical ventilation, and . All questions were fully answered to the patient's satisfaction and they wish to proceed with surgical intervention. I personally performed the evaluation and management of Mel Wall in the development of a treatment plan for this patient. I personally interviewed the patient and performed an individual physical examination. In addition, I discussed the patient's condition and treatment options with them. I have also reviewed and agree with the past medical, family and social history unless otherwise noted. All of the patient's questions were answered. I personally spent 60 minutes of time between the face to face encounter, physical exam, reviewing the medical history, coordinating the patient's care, counseling/educating the patient, ordering prescriptions/medications/tests/proc edures, interpreting results and documenting clinical information in the patient's electronic health record on the day of the encounter. Initial New [facility] surgical patient Navigation & Financial Counseling Discussion Patient Communication: In office SURGEON: [] RODOLFO [] CECILIA [] MP [] TB [x] LM PROCEDURE: [] LRYGB [] LSG [] BECCA-S [] BECCA [] UNDECIDED [] REV: SPECIFY: Confirmed pt wants to continue with surgical program/plan [] YES [] NO (complete program withdrawal note/process) CO-MORBIDS: [] NONE [] DM []HTN [] JAGJIT []GERD [] OTH: PRIVATE PAY: [] NO []YES DATE OF INITIAL BENEFITS VERIFICATION: TRANSFER FU: [] YES [] NO PRIMARY INSURANCE: Payor: [facility] MEDICAID / Plan: [facility] MEDICAID ODM / Product Type: Medicaid HMO / BENEFIT ON PLAN: [] NO [] YES BENEFIT MAX: [] NO [] YES -- BENEFIT MAX: $ EMPLOYER: DIET AND EXERCISE (DE) REQUIREMENT PRIMARY [] NONE [x]3M [] 6M []9M [] Medicare 4 Months [] SPR (3M) []OTHER: SECONDARY INSURANCE: BENEFIT ON PLAN: [] NO [] YES BENEFIT MAX: [] NO [] YES -- BENEFIT MAX: $ AUTH REQUIRED FROM SECONDARY [] NO [] YES DIET AND EXERCISE REQUIREMENT SECONDARY [] NONE []3M [] 6M [] Medicare 4 months [] SPR (3M) []OTHER: ___ [x] Discussed with patient: Financial cost overview (document signed and pt given copy at new pt consult visit with surgeon), Initial appointments: Bariatric Nutrition Assessment (BNA) & Diet and Exercise (DE) Patient to look for yellow envelope in mail. This yellow envelope will contain orders for labs, testing and required clearances. Pt encouraged to complete early in program to prevent delays. Encourage blood work to be draw by 1st DE appointment. [x] Reviewed OOP cost, including: [] Optifast cost of approximately $130-140/week x weeks immediately prior to surgery - used to induce rapid weight loss which results in decrease in size of liver and therefore facilitates laparoscopically surgery approach. [x] Overview of inpatient admission benefits - estimated inpatient co-pays, deductibles and/or co-insurance - Estimated OOP costs form reviewed with patient, and copy given to patient at new pt visit. [x] Reviewed next steps with patient: 1) Scheduled at new pt surgeon visit: Bid Analyst (RD) for a Nutrition Assessment (BNA) and Pre-operative Diet and Exercise (DE) appointment #1. [x] Patient reminded to arrive 15 minutes early for check in. Late arrivals may need to be rescheduled. 2) Schedule: Diet and Exercise Apt #2 only scheduled after initial BNA and DE completed, 3) Behavioral Health apt scheduled after DE started. Reviewed rational and goal of Behavioral Health appointments. 4) [x] Reinforced need to cancel any WMI appointments 48 hours in advance. Cautioned NS/Same day cancellations may result in delay in program or program completion hold. Noted: DE series needs to be a monthly series or insurance company may require repeat of the entire series. 5) [x] Smoker/tobacco products including vaping: reviewed need for cessation before surgery clearance and life long abstinence after surgery for best outcomes. Patient navigation to surgery: [x] Explained to patient that average time from initial consult to date of surgery can be 6-8 months. - Process can take longer if there are cancelled appointments, delays in testing and/or additional clearances that needs to be completed. - Reviewed importance of patient active engagement in making and keeping appointments to keep the process moving. - Reinforced need to cancel appointments at least 48 hours in advance. Reviewed that instances of No Shows and Same Day Appointment Cancellations may result in program/surgery delay or hold. [x] Patient advised of importance of having voicemail and MyChart for office communications and lab/testing results before and after surgery. 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 EGD revealed nonsleeved stomach. At D1, there appeared to be an end-to-end duodenal enterostomy. There was no evidence of and an affernt limb. Colonoscopy revealed freely mobile bowel within the hernia sac. Patient's right colon and cecum appeared to be within the hernia as well. This is suggestive that the patient had a hepatic flexure mobilization during her duodenal switch procedure. documented in this encounter [facility] 11-29-2023 History and physical note Images from the original note were not included. Department of Surgery Preoperative H&P PATIENT NAME: Mel Wall : 1985 ATTENDING PHYSICIAN: Serafin Taylor DO ADMIT DATE: 11/29/2023 TODAY'S DATE: 11/29/2023 Past Medical History: Past Medical History: Diagnosis Date Abdominal hernia Abdominal pain Anxiety Bipolar affective (HCC) Depression Morbid obesity, unspecified obesity type (HCC) Past Surgical History: Past Surgical History: Procedure Laterality Date APPENDECTOMY BILIOPANCREATIC DIVERSION 2007 DR Rehman CHOLECYSTECTOMY COLONOSCOPY W/ BIOPSIES N/A 11/29/2023 Performed by Serafin Taylor DO at [facility] ENDOSCOPY HERNIA REPAIR TONSILLECTOMY Current Medications: Current Facility-Administered Medications Medication Dose Route Frequency Provider Last Rate Last Admin sodium chloride 0.9 % infusion 50 mL/hr IntraVENous Continuous Gayle Keli Anderson APRN - [employer] INSERTER 50 mL/hr at 11/29/23 0711 50 mL/hr at 11/29/23 0711 Allergies: Allergies Allergen Reactions Ketorolac Hives and Shortness of breath Other reaction(s): Hives Ondansetron Shortness of breath and Hives Other reaction(s): Hives, Respiratory distress Social History: Social History Socioeconomic History Marital status: Single Spouse name: Not on file Number of children: Not on file Years of education: Not on file Highest education level: Not on file Occupational History Not on file Tobacco Use Smoking status: Never Smokeless tobacco: Never Substance and Sexual Activity Alcohol use: Not Currently Drug use: Yes Frequency: 2.0 times per week Types: Marijuana Sexual activity: Not Currently Other Topics Concern Not on file Social History Narrative Not on file Social Determinants of Health Financial Resource Strain: Not on file Food Insecurity: Not on file Transportation Needs: No Transportation Needs (10/19/2023) PRAPARE - Transportation Lack of Transportation (Medical): No Lack of Transportation (Non-Medical): No Physical Activity: Not on file Stress: Not on file Social Connections: Not on file Intimate Partner Violence: Not on file Housing Stability: Low Risk (10/19/2023) Housing Stability Vital Sign Unable to Pay for Housing in the Last Year: No Number of Places Lived in the Last Year: 1 Unstable Housing in the Last Year: No Family History: Family History Problem Relation Name Age of Onset Hypertension Father Diabetes Father IMPRESSION & PLAN: I have interviewed and examined the patient and reviewed the recent History and Physical. There have been no changes to the recent H&P documentation. The risks, benefits, expected outcomes, and alternatives to the recommended procedure have been discussed with the patient. Patient understands and wishes to proceed with the procedure. The surgical consent form has been signed. The surgical site has been marked as appropriate. 38 y.o. female presents today with large hernia, GERD -Plan for EGD with colonoscopy today [facility] 11-29-2023 History and physical note Images from the original note were not included. Department of Surgery Preoperative H&P PATIENT NAME: Mel Wall : 1985 ATTENDING PHYSICIAN: Serafin Taylor DO ADMIT DATE: 11/29/2023 TODAY'S DATE: 11/29/2023 Past Medical History: Past Medical History: Diagnosis Date Abdominal hernia Abdominal pain Anxiety Bipolar affective (HCC) Depression Morbid obesity, unspecified obesity type (HCC) Past Surgical History: Past Surgical History: Procedure Laterality Date APPENDECTOMY BILIOPANCREATIC DIVERSION 2007 DR Rehman CHOLECYSTECTOMY COLONOSCOPY W/ BIOPSIES N/A 11/29/2023 Performed by Serafin Taylor DO at [facility] ENDOSCOPY HERNIA REPAIR TONSILLECTOMY Current Medications: Current Facility-Administered Medications Medication Dose Route Frequency Provider Last Rate Last Admin sodium chloride 0.9 % infusion 50 mL/hr IntraVENous Continuous AKIRA Pike CNP 50 mL/hr at 11/29/23 0711 50 mL/hr at 11/29/23 0711 Allergies: Allergies Allergen Reactions Ketorolac Hives and Shortness of breath Other reaction(s): Hives Ondansetron Shortness of breath and Hives Other reaction(s): Hives, Respiratory distress Social History: Social History Socioeconomic History Marital status: Single Spouse name: Not on file Number of children: Not on file Years of education: Not on file Highest education level: Not on file Occupational History Not on file Tobacco Use Smoking status: Never Smokeless tobacco: Never Substance and Sexual Activity Alcohol use: Not Currently Drug use: Yes Frequency: 2.0 times per week Types: Marijuana Sexual activity: Not Currently Other Topics Concern Not on file Social History Narrative Not on file Social Determinants of Health Financial Resource Strain: Not on file Food Insecurity: Not on file Transportation Needs: No Transportation Needs (10/19/2023) PRAPARE - Transportation Lack of Transportation (Medical): No Lack of Transportation (Non-Medical): No Physical Activity: Not on file Stress: Not on file Social Connections: Not on file Intimate Partner Violence: Not on file Housing Stability: Low Risk (10/19/2023) Housing Stability Vital Sign Unable to Pay for Housing in the Last Year: No Number of Places Lived in the Last Year: 1 Unstable Housing in the Last Year: No Family History: Family History Problem Relation Name Age of Onset Hypertension Father Diabetes Father IMPRESSION & PLAN: I have interviewed and examined the patient and reviewed the recent History and Physical. There have been no changes to the recent H&P documentation. The risks, benefits, expected outcomes, and alternatives to the recommended procedure have been discussed with the patient. Patient understands and wishes to proceed with the procedure. The surgical consent form has been signed. The surgical site has been marked as appropriate. 38 y.o. female presents today with large hernia, GERD -Plan for EGD with colonoscopy today documented in this encounter [facility] 11-29-2023 Note Formatting of this n ote might be different from the original. [facility]: Mel Wall Procedure Date: 11/29/2023 7:20 AM Gender: Female Date of : 1985 Age: 38 Admit Type: Outpatient Note Status: Finalized Endoscopist: Serafin Taylor DO, [id number] Procedure: Upper GI endoscopy Indications: Suspected gastro-esophageal reflux disease Findings: The esophagus was normal. Mild inflammation was found in the gastric antrum. Biopsies were taken with a cold forceps for Helicobacter pylori testing. Verification of patient identification for the specimen was done by the physician and nurse using the patient's name and medical record number. Estimated blood loss was minimal. There did not appear to be evidence of prior sleeve gastrectomy. The examined duodenum was normal. There was evidence of a widely patent duodenoenterostomy in the first portion of the duodenum. This was characterized by healthy appearing mucosa and the presence of no stomal ulceration. There appeared to be an end to end duodenal-entero anastomosis. No afferent limb could be identified. Impression: - Normal esophagus. - Gastritis. Biopsied. - Normal examined duodenum. - Widely patent duodenoenterostomy, characterized by healthy appearing mucosa and no stomal ulceration was found. Recommendation: - Patient has a contact number available for emergencies. The signs and symptoms of potential delayed complications were discussed with the patient. Return to normal activities tomorrow. Written discharge instructions were provided to the patient. - Resume previous diet. - Continue present medications. - Await pathology results. Referring MD: Serafin Smith, Medicines: Monitored Anesthesia Care Procedure: Pre-Anesthesia Assessment: - Prior to the procedure, a History and Physical was performed, and patient medications and allergies were reviewed. The patient's tolerance of previous anesthesia was also reviewed. The risks and benefits of the procedure and the sedation options and risks were discussed with the patient. All questions were answered, and informed consent was obtained. Prior Anticoagulants: The patient has taken no anticoagulant or antiplatelet agents. ASA Grade Assessment: per anesthesia endoscopic documentation. After reviewing the risks and benefits, the patient was deemed in satisfactory condition to undergo the procedure. - The anesthesia plan was to use monitored anesthesia care (MAC). - Prior Aspirin/ NSAID therapy: The patient has taken no aspirin or NSAID medications. After obtaining informed consent, the endoscope was passed under direct vision. Throughout the procedure, the patient's blood pressure, pulse, and oxygen saturations were monitored continuously. The Endoscope was introduced through the mouth, and advanced to the jejunum. The upper GI endoscopy was accomplished without difficulty. The patient tolerated the procedure well. Complications: No immediate complications. Procedure Code(s): --- Professional --- 29221, Esophagogastroduodenoscopy, flexible, transoral; with biopsy, single or multiple --- Technical --- 92541, Esophagogastroduodenoscopy, flexible, transoral; with biopsy, single or multiple Diagnosis Code(s): --- Professional --- Z98.0, Intestinal bypass and anastomosis status K29.70, Gastritis, unspecified, without bleeding --- Technical --- Z98.0, Intestinal bypass and anastomosis status K29.70, Gastritis, unspecified, without bleeding CPT copyright 2021 [employer]. All rights reserved. The codes documented in this report are preliminary and upon tool distributor review may be revised to meet current compliance requirements. Attending Participation: I personally performed the entire procedure. Serafin Taylor DO 11/29/2023 8:12:38 AM This report has been signed electronically. Number of Addenda: 0 Note Initiated On: 11/29/2023 7:[facility] Note Formatting of this n ote might be different from the original. [facility]: Mel Wall Procedure Date: 11/29/2023 7:20 AM Gender: Female Date of : 1985 Age: 38 Admit Type: Outpatient Note Status: Finalized Endoscopist: Serafin Taylor DO, [id number] Procedure: Upper GI endoscopy Indications: Suspected gastro-esophageal reflux disease Findings: The esophagus was normal. Mild inflammation was found in the gastric antrum. Biopsies were taken with a cold forceps for Helicobacter pylori testing. Verification of patient identification for the specimen was done by the physician and nurse using the patient's name and medical record number. Estimated blood loss was minimal. There did not appear to be evidence of prior sleeve gastrectomy. The examined duodenum was normal. There was evidence of a widely patent duodenoenterostomy in the first portion of the duodenum. This was characterized by healthy appearing mucosa and the presence of no stomal ulceration. There appeared to be an end to end duodenal-entero anastomosis. No afferent limb could be identified. Impression: - Normal esophagus. - Gastritis. Biopsied. - Normal examined duodenum. - Widely patent duodenoenterostomy, characterized by healthy appearing mucosa and no stomal ulceration was found. Recommendation: - Patient has a contact number available for emergencies. The signs and symptoms of potential delayed complications were discussed with the patient. Return to normal activities tomorrow. Written discharge instructions were provided to the patient. - Resume previous diet. - Continue present medications. - Await pathology results. Referring MD: Serafin Smith DO Medicines: Monitored Anesthesia Care Procedure: Pre-Anesthesia Assessment: - Prior to the procedure, a History and Physical was performed, and patient medications and allergies were reviewed. The patient's tolerance of previous anesthesia was also reviewed. The risks and benefits of the procedure and the sedation options and risks were discussed with the patient. All questions were answered, and informed consent was obtained. Prior Anticoagulants: The patient has taken no anticoagulant or antiplatelet agents. ASA Grade Assessment: per anesthesia endoscopic documentation. After reviewing the risks and benefits, the patient was deemed in satisfactory condition to undergo the procedure. - The anesthesia plan was to use monitored anesthesia care (MAC). - Prior Aspirin/ NSAID therapy: The patient has taken no aspirin or NSAID medications. After obtaining informed consent, the endoscope was passed under direct vision. Throughout the procedure, the patient's blood pressure, pulse, and oxygen saturations were monitored continuously. The Endoscope was introduced through the mouth, and advanced to the jejunum. The upper GI endoscopy was accomplished without difficulty. The patient tolerated the procedure well. Complications: No immediate complications. Procedure Code(s): --- Professional --- 77323, Esophagogastroduodenoscopy, flexible, transoral; with biopsy, single or multiple --- Technical --- 70395, Esophagogastroduodenoscopy, flexible, transoral; with biopsy, single or multiple Diagnosis Code(s): --- Professional --- Z98.0, Intestinal bypass and anastomosis status K29.70, Gastritis, unspecified, without bleeding --- Technical --- Z98.0, Intestinal bypass and anastomosis status K29.70, Gastritis, unspecified, without bleeding CPT copyright 202 [employer]. All rights reserved. The codes documented in this report are preliminary and upon tool distributor review may be revised to meet current compliance requirements. Attending Participation: I personally performed the entire procedure. Serafin Taylor DO 11/29/2023 8:12:38 AM This report has been signed electronically. Number of Addenda: 0 Note Initiated On: 11/29/2023 7:20 AM [facility] 11-29-2023 Miscellaneous Notes Endoscopy [facility] Patient Name: Mel Wall Procedure Date: 11/29/2023 7:20 AM Gender: Female Date of : 1985 Age: 38 Admit Type: Outpatient Note Status: Finalized Endoscopist: Serafin Taylor DO, [id number] Procedure: Upper GI endoscopy Indications: Suspected gastro-esophageal reflux disease Findings: The esophagus was normal. Mild inflammation was found in the gastric antrum. Biopsies were taken with a cold forceps for Helicobacter pylori testing. Verification of patient identification for the specimen was done by the physician and nurse using the patient's name and medical record number. Estimated blood loss was minimal. There did not appear to be evidence of prior sleeve gastrectomy. The examined duodenum was normal. There was evidence of a widely patent duodenoenterostomy in the first portion of the duodenum. This was characterized by healthy appearing mucosa and the presence of no stomal ulceration. There appeared to be an end to end duodenal-entero anastomosis. No afferent limb could be identified. Impression: - Normal esophagus. - Gastritis. Biopsied. - Normal examined duodenum. - Widely patent duodenoenterostomy, characterized by healthy appearing mucosa and no stomal ulceration was found. Recommendation: - Patient has a contact number available for emergencies. The signs and symptoms of potential delayed complications were discussed with the patient. Return to normal activities tomorrow. Written discharge instructions were provided to the patient. - Resume previous diet. - Continue present medications. - Await pathology results. Referring MD: Serafin Smith DO Medicines: Monitored Anesthesia Care Procedure: Pre-Anesthesia Assessment: - Prior to the procedure, a History and Physical was performed, and patient medications and allergies were reviewed. The patient's tolerance of previous anesthesia was also reviewed. The risks and benefits of the procedure and the sedation options and risks were discussed with the patient. All questions were answered, and informed consent was obtained. Prior Anticoagulants: The patient has taken no anticoagulant or antiplatelet agents. ASA Grade Assessment: per anesthesia endoscopic documentation. After reviewing the risks and benefits, the patient was deemed in satisfactory condition to undergo the procedure. - The anesthesia plan was to use monitored anesthesia care (MAC). - Prior Aspirin/ NSAID therapy: The patient has taken no aspirin or NSAID medications. After obtaining informed consent, the endoscope was passed under direct vision. Throughout the procedure, the patient's blood pressure, pulse, and oxygen saturations were monitored continuously. The Endoscope was introduced through the mouth, and advanced to the jejunum. The upper GI endoscopy was accomplished without difficulty. The patient tolerated the procedure well. Complications: No immediate complications. Procedure Code(s): --- Professional --- 91266, Esophagogastroduodenoscopy, flexible, transoral; with biopsy, single or multiple --- Technical --- 57396, Esophagogastroduodenoscopy, flexible, transoral; with biopsy, single or multiple Diagnosis Code(s): --- Professional --- Z98.0, Intestinal bypass and anastomosis status K29.70, Gastritis, unspecified, without bleeding --- Technical --- Z98.0, Intestinal bypass and anastomosis status K29.70, Gastritis, unspecified, without bleeding CPT copyright 2021 [employer]. All rights reserved. The codes documented in this report are preliminary and upon tool distributor review may be revised to meet current compliance requirements. Attending Participation: I personally performed the entire procedure. Serafin Taylor DO 11/29/2023 8:12:38 AM This report has been signed electronically. Number of Addenda: 0 Note Initiated On: 11/29/2023 7:20 AM [facility]: Mel Wall Procedure Date: 11/29/2023 7:19 AM Gender: Female Date of : 1985 Age: 38 Admit Type: Outpatient Note Status: Finalized Endoscopist: Serafin Taylor DO, [id number] Procedure: Colonoscopy Indications: Generalized abdominal pain Findings: The perianal and digital rectal examinations were normal. Pertinent negatives include normal sphincter tone. The retroflexed view of the distal rectum and anal verge was normal and showed no anal or rectal abnormalities. The colon (entire examined portion) appeared normal. Impression: - The distal rectum and anal verge are normal on retroflexion view. - The entire examined colon is normal. - No specimens collected. Recommendation: - Patient has a contact number available for emergencies. The signs and symptoms of potential delayed complications were discussed with the patient. Return to normal activities tomorrow. Written discharge instructions were provided to the patient. - Repeat colonoscopy in 10 years. - Resume previous diet. - Continue present medications. - No aspirin, ibuprofen, naproxen, or other non-steroidal anti-inflammatory drugs for 2 days after polyp removal. Referring MD: Serafin Smith DO Medicines: Monitored Anesthesia Care Procedure: Pre-Anesthesia Assessment: - Prior to the procedure, a History and Physical was performed, and patient medications and allergies were reviewed. The patient's tolerance of previous anesthesia was also reviewed. The risks and benefits of the procedure and the sedation options and risks were discussed with the patient. All questions were answered, and informed consent was obtained. Prior Anticoagulants: The patient has taken no anticoagulant or antiplatelet agents. ASA Grade Assessment: per anesthesia endoscopic documentation. After reviewing the risks and benefits, the patient was deemed in satisfactory condition to undergo the procedure. After I obtained informed consent, the scope was passed under direct vision. Throughout the procedure, the patient's blood pressure, pulse, and oxygen saturations were monitored continuously. The Colonoscope was introduced through the anus and advanced to the cecum, identified by the appendiceal orifice, ileocecal valve and palpation. The colonoscopy was performed without difficulty. The patient tolerated the procedure well. The quality of the bowel preparation was adequate. The terminal ileum, ileocecal valve, appendiceal orifice, and rectum were photographed. Complications: No immediate complications. Procedure Code(s): --- Professional --- 49577, Colonoscopy, flexible; diagnostic, including collection of specimen(s) by brushing or washing, when performed (separate procedure) --- Technical --- 30169, Colonoscopy, flexible; diagnostic, including collection of specimen(s) by brushing or washing, when performed (separate procedure) Diagnosis Code(s): --- Professional --- R10.84, Generalized abdominal pain --- Technical --- R10.84, Generalized abdominal pain CPT copyright 2021 [employer]. All rights reserved. The codes documented in this report are preliminary and upon tool distributor review may be revised to meet current compliance requirements. Attending Participation: I personally performed the entire procedure. Serafin Taylor DO 11/29/2023 8:26:42 AM This report has been signed electronically. Number of Addenda: 0 Note Initiated On: 11/29/2023 7:19 AM documented in this encounter [facility] 11-29-2023 Note Formatting of this n ote might be different from the original. [facility]: Mel Wall Procedure Date: 11/29/2023 7:19 AM Gender: Female Date of : 1985 Age: 38 Admit Type: Outpatient Note Status: Finalized Endoscopist: Serafin Taylor DO, [id number] Procedure: Colonoscopy Indications: Generalized abdominal pain Findings: The perianal and digital rectal examinations were normal. Pertinent negatives include normal sphincter tone. The retroflexed view of the distal rectum and anal verge was normal and showed no anal or rectal abnormalities. The colon (entire examined portion) appeared normal. Impression: - The distal rectum and anal verge are normal on retroflexion view. - The entire examined colon is normal. - No specimens collected. Recommendation: - Patient has a contact number available for emergencies. The signs and symptoms of potential delayed complications were discussed with the patient. Return to normal activities tomorrow. Written discharge instructions were provided to the patient. - Repeat colonoscopy in 10 years. - Resume previous diet. - Continue present medications. - No aspirin, ibuprofen, naproxen, or other non-steroidal anti-inflammatory drugs for 2 days after polyp removal. Referring MD: Serafin Smith DO Medicines: Monitored Anesthesia Care Procedure: Pre-Anesthesia Assessment: - Prior to the procedure, a History and Physical was performed, and patient medications and allergies were reviewed. The patient's tolerance of previous anesthesia was also reviewed. The risks and benefits of the procedure and the sedation options and risks were discussed with the patient. All questions were answered, and informed consent was obtained. Prior Anticoagulants: The patient has taken no anticoagulant or antiplatelet agents. ASA Grade Assessment: per anesthesia endoscopic documentation. After reviewing the risks and benefits, the patient was deemed in satisfactory condition to undergo the procedure. After I obtained informed consent, the scope was passed under direct vision. Throughout the procedure, the patient's blood pressure, pulse, and oxygen saturations were monitored continuously. The Colonoscope was introduced through the anus and advanced to the cecum, identified by the appendiceal orifice, ileocecal valve and palpation. The colonoscopy was performed without difficulty. The patient tolerated the procedure well. The quality of the bowel preparation was adequate. The terminal ileum, ileocecal valve, appendiceal orifice, and rectum were photographed. Complications: No immediate complications. Procedure Code(s): --- Professional --- 39625, Colonoscopy, flexible; diagnostic, including collection of specimen(s) by brushing or washing, when performed (separate procedure) --- Technical --- 56527, Colonoscopy, flexible; diagnostic, including collection of specimen(s) by brushing or washing, when performed (separate procedure) Diagnosis Code(s): --- Professional --- R10.84, Generalized abdominal pain --- Technical --- R10.84, Generalized abdominal pain CPT copyright 2021 [employer]. All rights reserved. The codes documented in this report are preliminary and upon tool distributor review may be revised to meet current compliance requirements. Attending Participation: I personally performed the entire procedure. Serafin Taylor DO 11/29/2023 8:26:42 AM This report has been signed electronically. Number of Addenda: 0 Note Initiated On: 11/29/2023 7:19 AM [facility] 11-29-2023 Note Formatting of this n ote might be different from the original. [facility]: Mel Wall Procedure Date: 11/29/2023 7:19 AM Gender: Female Date of : 1985 Age: 38 Admit Type: Outpatient Note Status: Finalized Endoscopist: Serafin Taylor DO, [id number] Procedure: Colonoscopy Indications: Generalized abdominal pain Findings: The perianal and digital rectal examinations were normal. Pertinent negatives include normal sphincter tone. The retroflexed view of the distal rectum and anal verge was normal and showed no anal or rectal abnormalities. The colon (entire examined portion) appeared normal. Impression: - The distal rectum and anal verge are normal on retroflexion view. - The entire examined colon is normal. - No specimens collected. Recommendation: - Patient has a contact number available for emergencies. The signs and symptoms of potential delayed complications were discussed with the patient. Return to normal activities tomorrow. Written discharge instructions were provided to the patient. - Repeat colonoscopy in 10 years. - Resume previous diet. - Continue present medications. - No aspirin, ibuprofen, naproxen, or other non-steroidal anti-inflammatory drugs for 2 days after polyp removal. Referring MD: Serafin Smith DO Medicines: Monitored Anesthesia Care Procedure: Pre-Anesthesia Assessment: - Prior to the procedure, a History and Physical was performed, and patient medications and allergies were reviewed. The patient's tolerance of previous anesthesia was also reviewed. The risks and benefits of the procedure and the sedation options and risks were discussed with the patient. All questions were answered, and informed consent was obtained. Prior Anticoagulants: The patient has taken no anticoagulant or antiplatelet agents. ASA Grade Assessment: per anesthesia endoscopic documentation. After reviewing the risks and benefits, the patient was deemed in satisfactory condition to undergo the procedure. After I obtained informed consent, the scope was passed under direct vision. Throughout the procedure, the patient's blood pressure, pulse, and oxygen saturations were monitored continuously. The Colonoscope was introduced through the anus and advanced to the cecum, identified by the appendiceal orifice, ileocecal valve and palpation. The colonoscopy was performed without difficulty. The patient tolerated the procedure well. The quality of the bowel preparation was adequate. The terminal ileum, ileocecal valve, appendiceal orifice, and rectum were photographed. Complications: No immediate complications. Procedure Code(s): --- Professional --- 75534, Colonoscopy, flexible; diagnostic, including collection of specimen(s) by brushing or washing, when performed (separate procedure) --- Technical --- 80072, Colonoscopy, flexible; diagnostic, including collection of specimen(s) by brushing or washing, when performed (separate procedure) Diagnosis Code(s): --- Professional --- R10.84, Generalized abdominal pain --- Technical --- R10.84, Generalized abdominal pain CPT copyright 2021 [employer]. All rights reserved. The codes documented in this report are preliminary and upon tool distributor review may be revised to meet current compliance requirements. Attending Participation: I personally performed the entire procedure. Serafin Taylor DO 11/29/2023 8:26:42 AM This report has been signed electronically. Number of Addenda: 0 Note Initiated On: 11/29/2023 7:19 AM [facility] 11-23-2023 Telephone encounter Note Orders mailed [facility] 11-23-2023 Miscellaneous Notes Orders mailed Addended by: GAYLE ANDERSON on: 11/21/2023 10:24 AM Modules accepted: Orders Thanks. We have the operative notes that were accessible. The [address] Rehman at [facility] could not be located. I spoke to Medical Records myself. Addended by: ALLY EDWARD on: 11/18/2023 02:39 PM Modules accepted: Orders Pre op check list scanned to media, labs pended - UGI W/ SBFT, PLAN I have recommended proceeding with the evaluation and work-up for the primary procedure as outlined below: PATIENT SUMMARY Mel Taylor 38 y.o. female with Body mass index is 40.54 kg/m . 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 PCP: [facility] INITIAL TESTING RESULTS Labwork [x] CMP, TSH, Fasting Lipid Profile, Mg, Zinc, Vit B1 (whole blood), Vit B12, 25-OH Vit D, Fe, Ferritin, Folate Tobacco [x] Serum Nicotine / Cotinine [] Negative [] Positive EGD [x] Dx: [] GERD [x] Dyspepsia [] Other LB sent request for EGD and c scope to ALS. Pathology [x] H. pylori [] Negative [] Positive UGI [x] [] not ordered US Abdomen [] [x] not ordered CT completed. JAGJIT eval [] [] On CPAP / Obtain settings Hematology [] [] Hypercoagulation panel Toxicology [] [] Urine drug screen [] EtOH screen Addtional [x] [x] Hgb A1c Additionally, we will perform an EGD/colonoscopy, upper GI swallow with small bowel follow-through. We will also obtain medical records from [facility] (~2016) and [facility] in [facility] (~2015 [place], ~2007 [place]). Pending results of these operative report, we will determine whether or not we need to proceed with an MRCP to assess for hepaticojejunostomy for further assessment. Patient will follow-up with Dr. Steven, for D&E and possibly for medical weight loss drugs if patient is not a candidate for bariatric surgery. Follow-up with me at bariatrics or general surgery practice pending workup. INITIAL CONSULTATIONS CLEARANCE / MANAGEMENT Psychology [x] Dr. Rothman [x] Cardiology [x] [] not ordered Pulmonary [] [x] not ordered Others [] []Heme/Onc []Psychiatry []Pain mgmt PSD [] Physician supervised diet: []None [x]3 mos []6 mos Preop diet [x] Preop low calory diet: []None [x]1 wk []2 wks []Ext. FINAL PRE-OP TESTING RESULTS Labwork [x] [x]Pre-op CBC [x]BMP []Serum Nicotine / Cotinine EKG [x] CXR [x] POST-OP MEDICATIONS Ulcer Ppx [] Omeprazole 20 mg PO []QD []BID Gallstone Ppx [] Ursodiol 300 mg []BID DVT Ppx [] DVT prophylaxis per final preop visit estimated risk Estimated calculated risk: % Schedule final pre-operative office visit with surgeon, pre-operative education class, and pre-operative exercise class prior to date of surgery ATTESTATION I reviewed with the patient the details of the proposed operation. The risks benefits and options were discussed. Risks included but were not limited to bleeding, infection, damage to other surrounding organs, cardio-pulmonary complications related to anesthesia, conversion from laparoscopic to and open procedure, the need for reoperative or endoscopic therapy, the potential for prolonged mechanical ventilation, and . All questions were fully answered to the patient's satisfaction and they wish to proceed with surgical intervention. I personally performed the evaluation and management of Mel Wall in the development of a treatment plan for this patient. I personally interviewed the patient and performed an individual physical examination. In addition, I discussed the patient's condition and treatment options with them. I have also reviewed and agree with the past medical, family and social history unless otherwise noted. All of the patient's questions were answered. I personally spent 60 minutes of time between the face to face encounter, physical exam, reviewing the medical history, coordinating the patient's care, counseling/educating the patient, ordering prescriptions/medications/tests/proc edures, interpreting results and documenting clinical information in the patient's electronic health record on the day of the encounter. Initial New [facility] surgical patient Navigation & Financial Counseling Discussion Patient Communication: In office SURGEON: [] RODOLFO [] CECILIA [] MP [] TB [x] LM PROCEDURE: [] LRYGB [] LSG [] BECCA-S [] BECCA [] UNDECIDED [] REV: SPECIFY: Confirmed pt wants to continue with surgical program/plan [] YES [] NO (complete program withdrawal note/process) CO-MORBIDS: [] NONE [] DM []HTN [] JAGJIT []GERD [] OTH: PRIVATE PAY: [] NO []YES DATE OF INITIAL BENEFITS VERIFICATION: TRANSFER FU: [] YES [] NO PRIMARY INSURANCE: Payor: [facility] MEDICAID / Plan: [facility] MEDICAID ODM / Product Type: Medicaid HMO / BENEFIT ON PLAN: [] NO [] YES BENEFIT MAX: [] NO [] YES -- BENEFIT MAX: $ EMPLOYER: DIET AND EXERCISE (DE) REQUIREMENT PRIMARY [] NONE [x]3M [] 6M []9M [] Medicare 4 Months [] SPR (3M) []OTHER: SECONDARY INSURANCE: BENEFIT ON PLAN: [] NO [] YES BENEFIT MAX: [] NO [] YES -- BENEFIT MAX: $ AUTH REQUIRED FROM SECONDARY [] NO [] YES DIET AND EXERCISE REQUIREMENT SECONDARY [] NONE []3M [] 6M [] Medicare 4 months [] SPR (3M) []OTHER: ___ [x] Discussed with patient: Financial cost overview (document signed and pt given copy at new pt consult visit with surgeon), Initial appointments: Bariatric Nutrition Assessment (BNA) & Diet and Exercise (DE) Patient to look for yellow envelope in mail. This yellow envelope will contain orders for labs, testing and required clearances. Pt encouraged to complete early in program to prevent delays. Encourage blood work to be draw by 1st DE appointment. [x] Reviewed OOP cost, including: [] Optifast cost of approximately $130-140/week x weeks immediately prior to surgery - used to induce rapid weight loss which results in decrease in size of liver and therefore facilitates laparoscopically surgery approach. [x] Overview of inpatient admission benefits - estimated inpatient co-pays, deductibles and/or co-insurance - Estimated OOP costs form reviewed with patient, and copy given to patient at new pt visit. [x] Reviewed next steps with patient: 1) Scheduled at new pt surgeon visit: Bid Analyst (RD) for a Nutrition Assessment (BNA) and Pre-operative Diet and Exercise (DE) appointment #1. [x] Patient reminded to arrive 15 minutes early for check in. Late arrivals may need to be rescheduled. 2) Schedule: Diet and Exercise Apt #2 only scheduled after initial BNA and DE completed, 3) Behavioral Health apt scheduled after DE started. Reviewed rational and goal of Behavioral Health appointments. 4) [x] Reinforced need to cancel any WMI appointments 48 hours in advance. Cautioned NS/Same day cancellations may result in delay in program or program completion hold. Noted: DE series needs to be a monthly series or insurance company may require repeat of the entire series. 5) [x] Smoker/tobacco products including vaping: reviewed need for cessation before surgery clearance and life long abstinence after surgery for best outcomes. Patient navigation to surgery: [x] Explained to patient that average time from initial consult to date of surgery can be 6-8 months. - Process can take longer if there are cancelled appointments, delays in testing and/or additional clearances that needs to be completed. - Reviewed importance of patient active engagement in making and keeping appointments to keep the process moving. - Reinforced need to cancel appointments at least 48 hours in advance. Reviewed that instances of No Shows and Same Day Appointment Cancellations may result in program/surgery delay or hold. [x] Patient advised of importance of having voicemail and MyChart for office communications and lab/testing results before and after surgery. documented in this encounter [facility] 11-21-2023 Note Addended by: GAYLE ANDERSON on: 11/21/2023 10:24 AM Modules accepted: Orders [employer] Work Phone: 11-21-2023 Note Addended by: GAYLE ANDERSON on: 11/21/2023 10:24 AM Modules accepted: Orders [employer] Phone: 11-21-2023 Note Addended by: GAYLE ANDERSON on: 11/21/2023 10:24 AM Modules accepted: Orders [facility] 11-21-2023 Note Addended by: GAYLE ANDERSON on: 11/21/2023 10:24 AM Modules accepted: Orders [employer] 11-21-2023 Note Addended by: GAYLE ANDERSON on: 11/21/2023 10:24 AM Modules accepted: Orders [facility] 11-21-2023 Note Addended by: GAYLE ANDERSON on: 11/21/2023 10:24 AM Modules accepted: Orders [facility] 11-21-2023 Note Addended by: GAYLE ANDERSON on: 11/21/2023 10:24 AM Modules accepted: Orders [facility] 11-21-2023 Note Addended by: GAYLE ANDERSON on: 11/21/2023 10:24 AM Modules accepted: Orders [facility] 11-21-2023 Note Addended by: GAYLE ANDERSON on: 11/21/2023 10:24 AM Modules accepted: Orders [facility] 11-21-2023 Miscellaneous Notes Addended by: GAYLE ANDERSON on: 11/21/2023 10:24 AM Modules accepted: Orders Thanks. We have the operative notes that were accessible. The [address] Rehman at [facility] could not be located. I spoke to Medical Records myself. Addended by: ALLY EDWARD on: 11/18/2023 02:39 PM Modules accepted: Orders Pre op check list scanned to media, labs pended - UGI W/ SBFT, PLAN I have recommended proceeding with the evaluation and work-up for the primary procedure as outlined below: PATIENT SUMMARY Mel Taylor 38 y.o. female with Body mass index is 40.54 kg/m . 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 PCP: [facility] Michelle Perez INITIAL TESTING RESULTS Labwork [x] CMP, TSH, Fasting Lipid Profile, Mg, Zinc, Vit B1 (whole blood), Vit B12, 25-OH Vit D, Fe, Ferritin, Folate Tobacco [x] Serum Nicotine / Cotinine [] Negative [] Positive EGD [x] Dx: [] GERD [x] Dyspepsia [] Other LB sent request for EGD and c scope to ALS. Pathology [x] H. pylori [] Negative [] Positive UGI [x] [] not ordered US Abdomen [] [x] not ordered CT completed. JAGJIT eval [] [] On CPAP / Obtain settings Hematology [] [] Hypercoagulation panel Toxicology [] [] Urine drug screen [] EtOH screen Addtional [x] [x] Hgb A1c Additionally, we will perform an EGD/colonoscopy, upper GI swallow with small bowel follow-through. We will also obtain medical records from [facility] (~2016) and [facility] in [facility] (~2015 [place], ~2007 [place]). Pending results of these operative report, we will determine whether or not we need to proceed with an MRCP to assess for hepaticojejunostomy for further assessment. Patient will follow-up with Dr. Steven, for D&E and possibly for medical weight loss drugs if patient is not a candidate for bariatric surgery. Follow-up with me at bariatrics or general surgery practice pending workup. INITIAL CONSULTATIONS CLEARANCE / MANAGEMENT Psychology [x] Dietitian [x] Cardiology [x] [] not ordered Pulmonary [] [x] not ordered Others [] []Heme/Onc []Psychiatry []Pain mgmt PSD [] Physician supervised diet: []None [x]3 mos []6 mos Preop diet [x] Preop low calory diet: []None [x]1 wk []2 wks []Ext. FINAL PRE-OP TESTING RESULTS Labwork [x] [x]Pre-op CBC [x]BMP []Serum Nicotine / Cotinine EKG [x] CXR [x] POST-OP MEDICATIONS Ulcer Ppx [] Omeprazole 20 mg PO []QD []BID Gallstone Ppx [] Ursodiol 300 mg []BID DVT Ppx [] DVT prophylaxis per final preop visit estimated risk Estimated calculated risk: % Schedule final pre-operative office visit with surgeon, pre-operative education class, and pre-operative exercise class prior to date of surgery ATTESTATION I reviewed with the patient the details of the proposed operation. The risks benefits and options were discussed. Risks included but were not limited to bleeding, infection, damage to other surrounding organs, cardio-pulmonary complications related to anesthesia, conversion from laparoscopic to and open procedure, the need for reoperative or endoscopic therapy, the potential for prolonged mechanical ventilation, and . All questions were fully answered to the patient's satisfaction and they wish to proceed with surgical intervention. I personally performed the evaluation and management of Mel Wall in the development of a treatment plan for this patient. I personally interviewed the patient and performed an individual physical examination. In addition, I discussed the patient's condition and treatment options with them. I have also reviewed and agree with the past medical, family and social history unless otherwise noted. All of the patient's questions were answered. I personally spent 60 minutes of time between the face to face encounter, physical exam, reviewing the medical history, coordinating the patient's care, counseling/educating the patient, ordering prescriptions/medications/tests/proc edures, interpreting results and documenting clinical information in the patient's electronic health record on the day of the encounter. Initial New [facility] surgical patient Navigation & Financial Counseling Discussion Patient Communication: In office SURGEON: [] RODOLFO [] AD [] MP [] TB [x] LM PROCEDURE: [] LRYGB [] LSG [] BECCA-S [] BECCA [] UNDECIDED [] REV: SPECIFY: Confirmed pt wants to continue with surgical program/plan [] YES [] NO (complete program withdrawal note/process) CO-MORBIDS: [] NONE [] DM []HTN [] JAGJIT []GERD [] OTH: PRIVATE PAY: [] NO []YES DATE OF INITIAL BENEFITS VERIFICATION: TRANSFER FU: [] YES [] NO PRIMARY INSURANCE: Payor: [facility] MEDICAID / Plan: [facility] MEDICAID ODM / Product Type: Medicaid HMO / BENEFIT ON PLAN: [] NO [] YES BENEFIT MAX: [] NO [] YES -- BENEFIT MAX: $ EMPLOYER: DIET AND EXERCISE (DE) REQUIREMENT PRIMARY [] NONE [x]3M [] 6M []9M [] Medicare 4 Months [] SPR (3M) []OTHER: SECONDARY INSURANCE: BENEFIT ON PLAN: [] NO [] YES BENEFIT MAX: [] NO [] YES -- BENEFIT MAX: $ AUTH REQUIRED FROM SECONDARY [] NO [] YES DIET AND EXERCISE REQUIREMENT SECONDARY [] NONE []3M [] 6M [] Medicare 4 months [] SPR (3M) []OTHER: ___ [x] Discussed with patient: Financial cost overview (document signed and pt given copy at new pt consult visit with surgeon), Initial appointments: Bariatric Nutrition Assessment (BNA) & Diet and Exercise (DE) Patient to look for yellow envelope in mail. This yellow envelope will contain orders for labs, testing and required clearances. Pt encouraged to complete early in program to prevent delays. Encourage blood work to be draw by 1st DE appointment. [x] Reviewed OOP cost, including: [] Optifast cost of approximately $130-140/week x weeks immediately prior to surgery - used to induce rapid weight loss which results in decrease in size of liver and therefore facilitates laparoscopically surgery approach. [x] Overview of inpatient admission benefits - estimated inpatient co-pays, deductibles and/or co-insurance - Estimated OOP costs form reviewed with patient, and copy given to patient at new pt visit. [x] Reviewed next steps with patient: 1) Scheduled at new pt surgeon visit: Bid Analyst (RD) for a Nutrition Assessment (BNA) and Pre-operative Diet and Exercise (DE) appointment #1. [x] Patient reminded to arrive 15 minutes early for check in. Late arrivals may need to be rescheduled. 2) Schedule: Diet and Exercise Apt #2 only scheduled after initial BNA and DE completed, 3) Behavioral Health apt scheduled after DE started. Reviewed rational and goal of Behavioral Health appointments. 4) [x] Reinforced need to cancel any WMI appointments 48 hours in advance. Cautioned NS/Same day cancellations may result in delay in program or program completion hold. Noted: DE series needs to be a monthly series or insurance company may require repeat of the entire series. 5) [x] Smoker/tobacco products including vaping: reviewed need for cessation before surgery clearance and life long abstinence after surgery for best outcomes. Patient navigation to surgery: [x] Explained to patient that average time from initial consult to date of surgery can be 6-8 months. - Process can take longer if there are cancelled appointments, delays in testing and/or additional clearances that needs to be completed. - Reviewed importance of patient active engagement in making and keeping appointments to keep the process moving. - Reinforced need to cancel appointments at least 48 hours in advance. Reviewed that instances of No Shows and Same Day Appointment Cancellations may result in program/surgery delay or hold. [x] Patient advised of importance of having voicemail and MyChart for office communications and lab/testing results before and after surgery. documented in this encounter [facility] [employer] 11-21-2023 Telephone encounter Note Thanks. We have the operative notes that were accessible. The [address] Rehman at [facility] could not be located. I spoke to Medical Records myself. [facility] 11-18-2023 Note Addended by: Ladan EDWARD on: 11/18/2023 02:39 PM Modules accepted: Orders [facility] 11-18-2023 Note Addended by: Ladan EDWARD on: 11/18/2023 02:39 PM Modules accepted: Orders [facility] 11-18-2023 Note Addended by: Ladan EDWARD on: 11/18/2023 02:39 PM Modules accepted: Orders [facility] 11-18-2023 Note Addended by: Ladan EDWRAD on: 11/18/2023 02:39 PM Modules accepted: Orders [facility] 11-18-2023 Note Addended by: Ladan EDWARD on: 11/18/2023 02:39 PM Modules accepted: Orders [facility] 11-18-2023 Note Addended by: Ladan EDWARD on: 11/18/2023 02:39 PM Modules accepted: Orders [facility] 11-18-2023 Note Addended by: Ladan EDWARD on: 11/18/2023 02:39 PM Modules accepted: Orders [facility] 11-18-2023 Note Addended by: Ladan EDWARD on: 11/18/2023 02:39 PM Modules accepted: Orders [facility] 11-18-2023 Note Addended by: Ladan EDWARD on: 11/18/2023 02:39 PM Modules accepted: Orders [facility] 11-18-2023 Note Addended by: Ladan EDWARD on: 11/18/2023 02:39 PM Modules accepted: Orders [facility] 11-18-2023 Miscellaneous Notes Addended by: ALLY EDWARD on: 11/18/2023 02:39 PM Modules accepted: Orders Pre op check list scanned to media, labs pended - UGI W/ SBFT, PLAN I have recommended proceeding with the evaluation and work-up for the primary procedure as outlined below: PATIENT SUMMARY Mel Taylor 38 y.o. female with Body mass index is 40.54 kg/m . 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 PCP: [facility] Michelle Perez INITIAL TESTING RESULTS Labwork [x] CMP, TSH, Fasting Lipid Profile, Mg, Zinc, Vit B1 (whole blood), Vit B12, 25-OH Vit D, Fe, Ferritin, Folate Tobacco [x] Serum Nicotine / Cotinine [] Negative [] Positive EGD [x] Dx: [] GERD [x] Dyspepsia [] Other LB sent request for EGD and c scope to ALS. Pathology [x] H. pylori [] Negative [] Positive UGI [x] [] not ordered US Abdomen [] [x] not ordered CT completed. JAGJIT eval [] [] On CPAP / Obtain settings Hematology [] [] Hypercoagulation panel Toxicology [] [] Urine drug screen [] EtOH screen Addtional [x] [x] Hgb A1c Additionally, we will perform an EGD/colonoscopy, upper GI swallow with small bowel follow-through. We will also obtain medical records from [facility] (~2016) and [facility] in [facility] (~2015 [place], ~2007 [place]). Pending results of these operative report, we will determine whether or not we need to proceed with an MRCP to assess for hepaticojejunostomy for further assessment. Patient will follow-up with Dr. Steven, for D&E and possibly for medical weight loss drugs if patient is not a candidate for bariatric surgery. Follow-up with me at bariatrics or general surgery practice pending workup. INITIAL CONSULTATIONS CLEARANCE / MANAGEMENT Psychology [x] Dietitian [x] Cardiology [x] [] not ordered Pulmonary [] [x] not ordered Others [] []Heme/Onc []Psychiatry []Pain mgmt PSD [] Physician supervised diet: []None [x]3 mos []6 mos Preop diet [x] Preop low calory diet: []None [x]1 wk []2 wks []Ext. FINAL PRE-OP TESTING RESULTS Labwork [x] [x]Pre-op CBC [x]BMP []Serum Nicotine / Cotinine EKG [x] CXR [x] POST-OP MEDICATIONS Ulcer Ppx [] Omeprazole 20 mg PO []QD []BID Gallstone Ppx [] Ursodiol 300 mg []BID DVT Ppx [] DVT prophylaxis per final preop visit estimated risk Estimated calculated risk: % Schedule final pre-operative office visit with surgeon, pre-operative education class, and pre-operative exercise class prior to date of surgery ATTESTATION I reviewed with the patient the details of the proposed operation. The risks benefits and options were discussed. Risks included but were not limited to bleeding, infection, damage to other surrounding organs, cardio-pulmonary complications related to anesthesia, conversion from laparoscopic to and open procedure, the need for reoperative or endoscopic therapy, the potential for prolonged mechanical ventilation, and . All questions were fully answered to the patient's satisfaction and they wish to proceed with surgical intervention. I personally performed the evaluation and management of Mel Wall in the development of a treatment plan for this patient. I personally interviewed the patient and performed an individual physical examination. In addition, I discussed the patient's condition and treatment options with them. I have also reviewed and agree with the past medical, family and social history unless otherwise noted. All of the patient's questions were answered. I personally spent 60 minutes of time between the face to face encounter, physical exam, reviewing the medical history, coordinating the patient's care, counseling/educating the patient, ordering prescriptions/medications/tests/proc edures, interpreting results and documenting clinical information in the patient's electronic health record on the day of the encounter. Initial New [facility] surgical patient Navigation & Financial Counseling Discussion Patient Communication: In office SURGEON: [] RODOLFO [] CECILIA [] MP [] TB [x] LM PROCEDURE: [] LRYGB [] LSG [] BECCA-S [] BECCA [] UNDECIDED [] REV: SPECIFY: Confirmed pt wants to continue with surgical program/plan [] YES [] NO (complete program withdrawal note/process) CO-MORBIDS: [] NONE [] DM []HTN [] JAGJIT []GERD [] OTH: PRIVATE PAY: [] NO []YES DATE OF INITIAL BENEFITS VERIFICATION: TRANSFER FU: [] YES [] NO PRIMARY INSURANCE: [place]: [place] [facility] / Plan: [facility] MEDICAID ODM / Product Type: Medicaid HMO / BENEFIT ON PLAN: [] NO [] YES BENEFIT MAX: [] NO [] YES -- BENEFIT MAX: $ EMPLOYER: DIET AND EXERCISE (DE) REQUIREMENT PRIMARY [] NONE [x]3M [] 6M []9M [] Medicare 4 Months [] SPR (3M) []OTHER: SECONDARY INSURANCE: BENEFIT ON PLAN: [] NO [] YES BENEFIT MAX: [] NO [] YES -- BENEFIT MAX: $ AUTH REQUIRED FROM SECONDARY [] NO [] YES DIET AND EXERCISE REQUIREMENT SECONDARY [] NONE []3M [] 6M [] Medicare 4 months [] SPR (3M) []OTHER: ___ [x] Discussed with patient: Financial cost overview (document signed and pt given copy at new pt consult visit with surgeon), Initial appointments: Bariatric Nutrition Assessment (BNA) & Diet and Exercise (DE) Patient to look for yellow envelope in mail. This yellow envelope will contain orders for labs, testing and required clearances. Pt encouraged to complete early in program to prevent delays. Encourage blood work to be draw by 1st DE appointment. [x] Reviewed OOP cost, including: [] Optifast cost of approximately $130-140/week x weeks immediately prior to surgery - used to induce rapid weight loss which results in decrease in size of liver and therefore facilitates laparoscopically surgery approach. [x] Overview of inpatient admission benefits - estimated inpatient co-pays, deductibles and/or co-insurance - Estimated OOP costs form reviewed with patient, and copy given to patient at new pt visit. [x] Reviewed next steps with patient: 1) Scheduled at new pt surgeon visit: Bid Analyst (RD) for a Nutrition Assessment (BNA) and Pre-operative Diet and Exercise (DE) appointment #1. [x] Patient reminded to arrive 15 minutes early for check in. Late arrivals may need to be rescheduled. 2) Schedule: Diet and Exercise Apt #2 only scheduled after initial BNA and DE completed, 3) Behavioral Health apt scheduled after DE started. Reviewed rational and goal of Behavioral Health appointments. 4) [x] Reinforced need to cancel any WMI appointments 48 hours in advance. Cautioned NS/Same day cancellations may result in delay in program or program completion hold. Noted: DE series needs to be a monthly series or insurance company may require repeat of the entire series. 5) [x] Smoker/tobacco products including vaping: reviewed need for cessation before surgery clearance and life long abstinence after surgery for best outcomes. Patient navigation to surgery: [x] Explained to patient that average time from initial consult to date of surgery can be 6-8 months. - Process can take longer if there are cancelled appointments, delays in testing and/or additional clearances that needs to be completed. - Reviewed importance of patient active engagement in making and keeping appointments to keep the process moving. - Reinforced need to cancel appointments at least 48 hours in advance. Reviewed that instances of No Shows and Same Day Appointment Cancellations may result in program/surgery delay or hold. [x] Patient advised of importance of having voicemail and MyChart for office communications and lab/testing results before and after surgery. documented in this encounter [employer] 11-18-2023 Telephone encounter Note Pre op check list scanned to media, labs pended - UGI W/ SBFT, [facility] [employer] 11-18-2023 Telephone encounter Note PLAN I have recommended proceeding with the evaluation and work-up for the primary procedure as outlined below: PATIENT SUMMARY Mel Taylor 38 y.o. female with Body mass index is 40.54 kg/m . 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 [facility] INITIAL TESTING RESULTS Labwork [x] CMP, TSH, Fasting Lipid Profile, Mg, Zinc, Vit B1 (whole blood), Vit B12, 25-OH Vit D, Fe, Ferritin, Folate Tobacco [x] Serum Nicotine / Cotinine [] Negative [] Positive EGD [x] Dx: [] GERD [x] Dyspepsia [] Other LB sent request for EGD and c scope to ALS. Pathology [x] H. pylori [] Negative [] Positive UGI [x] [] not ordered US Abdomen [] [x] not ordered CT completed. JAGJIT eval [] [] On CPAP / Obtain settings Hematology [] [] Hypercoagulation panel Toxicology [] [] Urine drug screen [] EtOH screen Addtional [x] [x] Hgb A1c Additionally, we will perform an EGD/colonoscopy, upper GI swallow with small bowel follow-through. We will also obtain medical records from [facility] (~2016) and [facility] in [facility] (~2015 [place], ~2007 [place]). Pending results of these operative report, we will determine whether or not we need to proceed with an MRCP to assess for hepaticojejunostomy for further assessment. Patient will follow-up with Dr. Steven, for D&E and possibly for medical weight loss drugs if patient is not a candidate for bariatric surgery. Follow-up with me at bariatrics or general surgery practice pending workup. INITIAL CONSULTATIONS CLEARANCE / MANAGEMENT Psychology [x] Dietitian [x] Cardiology [x] [] not ordered Pulmonary [] [x] not ordered Others [] []Heme/Onc []Psychiatry []Pain mgmt PSD [] Physician supervised diet: []None [x]3 mos []6 mos Preop diet [x] Preop low calory diet: []None [x]1 wk []2 wks []Ext. FINAL PRE-OP TESTING RESULTS Labwork [x] [x]Pre-op CBC [x]BMP []Serum Nicotine / Cotinine EKG [x] CXR [x] POST-OP MEDICATIONS Ulcer Ppx [] Omeprazole 20 mg PO []QD []BID Gallstone Ppx [] Ursodiol 300 mg []BID DVT Ppx [] DVT prophylaxis per final preop visit estimated risk Estimated calculated risk: % Schedule final pre-operative office visit with surgeon, pre-operative education class, and pre-operative exercise class prior to date of surgery ATTESTATION I reviewed with the patient the details of the proposed operation. The risks benefits and options were discussed. Risks included but were not limited to bleeding, infection, damage to other surrounding organs, cardio-pulmonary complications related to anesthesia, conversion from laparoscopic to and open procedure, the need for reoperative or endoscopic therapy, the potential for prolonged mechanical ventilation, and . All questions were fully answered to the patient's satisfaction and they wish to proceed with surgical intervention. I personally performed the evaluation and management of Mel Wall in the development of a treatment plan for this patient. I personally interviewed the patient and performed an individual physical examination. In addition, I discussed the patient's condition and treatment options with them. I have also reviewed and agree with the past medical, family and social history unless otherwise noted. All of the patient's questions were answered. I personally spent 60 minutes of time between the face to face encounter, physical exam, reviewing the medical history, coordinating the patient's care, counseling/educating the patient, ordering prescriptions/medications/tests/proc edures, interpreting results and documenting clinical information in the patient's electronic health record on the day of the encounter. [facility] 11-17-2023 Telephone encounter Note Received an op note from [facility] dated Jun 2019. The medical records dept said they do not have anything from 2008 as pt had indicated. In part, the findings indicate apparent janel en y reconstruction, though the indication for this is unclear. Dilated bowel loops seen on CT was the anastomosis of janel limb and BP limbs. [facility] Work Phone: 11-17-2023 Miscellaneous Notes Received an op note from [facility] dated Jun 2019. The medical records dept said they do not have anything from 2008 as pt had indicated. In part, the findings indicate apparent janel en y reconstruction, though the indication for this is unclear. Dilated bowel loops seen on CT was the anastomosis of janel limb and BP limbs. Noted in CT from March 2023. Large ventral wall hernia containing multiple loops of small bowel and colon and a portion of the antral stomach. Postsurgical changes of bowel likely reflecting anastomosis between proximal duodenum and jejunum in the right upper quadrant. Stomach is moderately distended and there is mild fluid distention of jejunum, just distal to the anastomosis with narrowing of the jejunum at the entrance to large ventral wall hernia. Findings raise concern for obstruction of the jejunum at entrance to the ventral hernia with associated upstream dilatation and distention of small bowel and stomach. Surgical consultation is suggested. ----- Message from Serafin Taylor DO sent at 11/15/2023 5:45 PM EST ----- Ms. Wall is a complicated patient that I am at bariatrics today with obesity and a large abdominal wall hernia. She will likely need management from both practices. We will proceed with an EGD/colonoscopy, upper GI swallow with small bowel follow-through. We will also obtain medical records from [facility] (~2016) and [facility] in [facility] (~2015 [place], ~[address] [place] Rehman did some type of bile diversion surgery in 2007 electively and is unclear what this procedure is. I am not entirely sure if she will qualify for bariatric surgery depending on what he performed. If we cannot obtain the records, we may need to proceed with an MRCP. Dr. Steven, if she is not a candidate for bariatric surgery, she will need medical weight loss. Irena lets continue to work her up as if she is having bariatric surgery, once we get the op reports, we will decide where she will go Thanks! Serafin documented in this encounter [facility] 11-17-2023 Telephone encounter Note Noted in CT from March 2023. Large ventral wall hernia containing multiple loops of small bowel and colon and a portion of the antral stomach. Postsurgical changes of bowel likely reflecting anastomosis between proximal duodenum and jejunum in the right upper quadrant. Stomach is moderately distended and there is mild fluid distention of jejunum, just distal to the anastomosis with narrowing of the jejunum at the entrance to large ventral wall hernia. Findings raise concern for obstruction of the jejunum at entrance to the ventral hernia with associated upstream dilatation and distention of small bowel and stomach. Surgical consultation is suggested. [facility] 11-16-2023 Telephone encounter Note ----- Message from Serafin Taylor DO sent at 11/15/2023 5:45 PM EST ----- Ms. Wall is a complicated patient that I am at bariatrics today with obesity and a large abdominal wall hernia. She will likely need management from both practices. We will proceed with an EGD/colonoscopy, upper GI swallow with small bowel follow-through. We will also obtain medical records from [facility] (~2016) and [facility] in [facility] (~2015 [place], ~[address] [place] Rehman did some type of bile diversion surgery in 2007 electively and is unclear what this procedure is. I am not entirely sure if she will qualify for bariatric surgery depending on what he performed. If we cannot obtain the records, we may need to proceed with an MRCP. Dr. Steven, if she is not a candidate for bariatric surgery, she will need medical weight loss. jeff Osborn continue to work her up as if she is having bariatric surgery, once we get the op reports, we will decide where she will go Thanks! Serafin [facility] 11-15-2023 Telephone encounter Note Initial New [facility] surgical patient Navigation & Financial Counseling Discussion Patient Communication: In office SURGEON: [] RODOLFO [] AD [] MP [] TB [x] LM PROCEDURE: [] LRYGB [] LSG [] BECCA-S [] BECCA [] UNDECIDED [] REV: SPECIFY: Confirmed pt wants to continue with surgical program/plan [] YES [] NO (complete program withdrawal note/process) CO-MORBIDS: [] NONE [] DM []HTN [] JAGJIT []GERD [] OTH: PRIVATE PAY: [] NO []YES DATE OF INITIAL BENEFITS VERIFICATION: TRANSFER FU: [] YES [] NO PRIMARY INSURANCE: Payor: [facility] MEDICAID / Plan: [facility] MEDICAID ODM / Product Type: Medicaid HMO / BENEFIT ON PLAN: [] NO [] YES BENEFIT MAX: [] NO [] YES -- BENEFIT MAX: $ EMPLOYER: DIET AND EXERCISE (DE) REQUIREMENT PRIMARY [] NONE [x]3M [] 6M []9M [] Medicare 4 Months [] SPR (3M) []OTHER: SECONDARY INSURANCE: BENEFIT ON PLAN: [] NO [] YES BENEFIT MAX: [] NO [] YES -- BENEFIT MAX: $ AUTH REQUIRED FROM SECONDARY [] NO [] YES DIET AND EXERCISE REQUIREMENT SECONDARY [] NONE []3M [] 6M [] Medicare 4 months [] SPR (3M) []OTHER: ___ [x] Discussed with patient: Financial cost overview (document signed and pt given copy at new pt consult visit with surgeon), Initial appointments: Bariatric Nutrition Assessment (BNA) & Diet and Exercise (DE) Patient to look for yellow envelope in mail. This yellow envelope will contain orders for labs, testing and required clearances. Pt encouraged to complete early in program to prevent delays. Encourage blood work to be draw by 1st DE appointment. [x] Reviewed OOP cost, including: [] Optifast cost of approximately $130-140/week x weeks immediately prior to surgery - used to induce rapid weight loss which results in decrease in size of liver and therefore facilitates laparoscopically surgery approach. [x] Overview of inpatient admission benefits - estimated inpatient co-pays, deductibles and/or co-insurance - Estimated OOP costs form reviewed with patient, and copy given to patient at new pt visit. [x] Reviewed next steps with patient: 1) Scheduled at new pt surgeon visit: Bid Analyst (RD) for a Nutrition Assessment (BNA) and Pre-operative Diet and Exercise (DE) appointment #1. [x] Patient reminded to arrive 15 minutes early for check in. Late arrivals may need to be rescheduled. 2) Schedule: Diet and Exercise Apt #2 only scheduled after initial BNA and DE completed, 3) Behavioral Health apt scheduled after DE started. Reviewed rational and goal of Behavioral Health appointments. 4) [x] Reinforced need to cancel any WMI appointments 48 hours in advance. Cautioned NS/Same day cancellations may result in delay in program or program completion hold. Noted: DE series needs to be a monthly series or insurance company may require repeat of the entire series. 5) [x] Smoker/tobacco products including vaping: reviewed need for cessation before surgery clearance and life long abstinence after surgery for best outcomes. Patient navigation to surgery: [x] Explained to patient that average time from initial consult to date of surgery can be 6-8 months. - Process can take longer if there are cancelled appointments, delays in testing and/or additional clearances that needs to be completed. - Reviewed importance of patient active engagement in making and keeping appointments to keep the process moving. - Reinforced need to cancel appointments at least 48 hours in advance. Reviewed that instances of No Shows and Same Day Appointment Cancellations may result in program/surgery delay or hold. [x] Patient advised of importance of having voicemail and MyChart for office communications and lab/testing results before and after surgery. [facility] 11-15-2023 History of Present illness Narrative ENDOSCOPY ORDERS To be scheduled with: Dr. Taylor Patient is: Pre-op/Pre-Bariatric Surgery CPT code: EGD with biopsy- CPT 55619 and Colonoscopy- CPT 09292 Diagnosis: Abdominal pain- R10.84 and Other with ICD 10: R 19.8 change in bowel function. If pre-op, Diet & Exercise Requirements are, and started/scheduled on needs ANNE: Home O2: No Known Difficult Intubation: No Is patient on a GLP-1 agonist? No If yes- which one? N/A Please advise that patient hold this medication for 1 week before EGD Vane - After speaking with Dr. Taylor, he stated this can be scheduled in his next available spot, so there's no need to find a spot or shuffle folks. EGD & Cscope w Bx Scheduled for 11/29/2023 @ 730am @ [place] with Dr. Taylor. DP printed documented in this encounter [facility] 11-15-2023 History of Present illness Narrative [facility] SURGICAL WEIGHT LOSS MANAGEMENT PROGRAM Rooming Note - INITIAL CONSULTATION Patient: Mel Wall Date of : 1985 Service Date: 11/15/2023 Patient is here today to discuss the possibility of weight loss surgery. This patient is alone for the evaluation today she is interested in discussing weight loss surgery. Physician Supervised D/E: 3 Weight Metrics: Vitals BP: 123/78 Heart Rate: 77 Resp: 16 Temp: 36.9 C (98.5 F) Baseline Measures Initial Height: 5' 5.5 (166.4 cm) Initial Weight: 247 lb 6.4 oz (112 kg) Initial BMI: 40.54 Initial EBW: 119 lb 14.4 oz (54.4 kg) Initial Waist Cricumference: 51.5 Initial Neck Circumference: 16 Falls Risk Assessment Patient does nottake medications which affect BP or mental status Patient does not have newly prescribed or changed dosage of medications within past 30 days which affect BP or mental status Patient has not fallen in the past 2 months Patient does not demonstrate unsteady gait Patient uses the following ambulatory assistive devices: none Patient is low risk for falls. If high or moderate risk, patient instructed not to ambulate independently in the Center, and cord for call light placed within reach of patient. History of Difficult Intubation: No Patient is not on home O2 Completed by: Ally Edward LPN Images from the original note were not included. RODNEY BLEDSOE DO, [facility], BARIATRIC AND ROBOTIC SURGERY [facility] BARIATRIC EVALUATION - HISTORY AND PHYSICAL 11/15/23 PATIENT: Mel Wall DATE OF : 1985 HISTORY OF PRESENT ILLNESS Chief Complaint: Obesity and associated conditions. Mel Wall is a 38 y.o. female with obesity and associated conditions who presents to the [facility] [place] for evaluation for metabolic/bariatric surgery. The patient stands Height: 5' 5.5 (166.4 cm) tall with a weight of Weight: 247 lb 6.4 oz (112 kg) , and has a BMI of Body mass index is 40.54 kg/m .. The patient has failed multiple attempts at non-surgical weight loss, and is now seeking surgical intervention to promote permanent and consistent weight loss. The patient suffers from several co-morbidities as a result of obesity as outlined in the past medical history. The patient denies a history of myocardia infarction, deep vein thrombosis, pulmonary embolism, renal failure, hepatic failure, stroke, and seizure. She does not smoke, and does not drink alcohol. Works at [employer].- referral program. Review of Systems Constitutional: Negative for fatigue and fever. Respiratory: Negative for cough, chest tightness and shortness of breath. Cardiovascular: Negative for chest pain and leg swelling. Gastrointestinal: Positive for abdominal pain and blood in stool. Negative for vomiting. Genitourinary: Negative for frequency and urgency. Musculoskeletal: Negative for arthralgias, back pain and gait problem. Neurological: Negative for light-headedness and headaches. Psychiatric/Behavioral: Negative for dysphoric mood. The patient is nervous/anxious. States she was in ER this past weekend for lower abdominal pain, that is causing worsening pain. She notes hernia dates back to 2020. She had mesh removed by surgeon in [place] from prior hernia repair, the mesh had strangulated the bowel, and since that time noted large RLQ hernia. This was done in 2020. Can't wear binder, causes too much pressure. Bowel function is affected, she notes only bloody stool the last 3 days. Last 'regular bm was on Tuesday, 3 days ago. She is not straining to have bowel movement. Notes history of hemorrhoids. Stool is black, not on iron. OCD - Buspar, Lost 90 lb over the last year w Keto - plateau reached at 245 lb. PAST HISTORIES Past Medical History: Diagnosis Date Abdominal pain Anxiety Bipolar affective (HCC) Depression Morbid obesity, unspecified obesity type (HCC) Past Surgical History: Procedure Laterality Date APPENDECTOMY CHOLECYSTECTOMY HERNIA REPAIR OTHER SURGICAL HISTORY 2007 JANEL-EN-Y W/GASTROENTEROS--DR Rehman TONSILLECTOMY Family History Problem Relation Name Age of Onset Hypertension Father Diabetes Father Allergies Allergen Reactions Ketorolac Hives and Shortness of breath Other reaction(s): Hives Ondansetron Shortness of breath and Hives Other reaction(s): Hives, Respiratory distress Current Outpatient Medications Medication Sig Dispense Refill busPIRone (Buspar) 30 MG tablet Take 30 mg by mouth in the morning and 30 mg in the evening. FLUoxetine (PROzac) 40 MG capsule Take 80 mg by mouth in the morning. No current facility-administered medications for this visit. Social History Socioeconomic History Marital status: Single Spouse name: Not on file Number of children: Not on file Years of education: Not on file Highest education level: Not on file Occupational History Not on file Tobacco Use Smoking status: Never Smokeless tobacco: Never Substance and Sexual Activity Alcohol use: Not Currently Drug use: Yes Frequency: 2.0 times per week Types: Marijuana Sexual activity: Not Currently Other Topics Concern Not on file Social History Narrative Not on file Social Determinants of Health Financial Resource Strain: Not on file Food Insecurity: Not on file Transportation Needs: No Transportation Needs (10/19/2023) PRAPARE - Transportation Lack of Transportation (Medical): No Lack of Transportation (Non-Medical): No Physical Activity: Not on file Stress: Not on file Social Connections: Not on file Intimate Partner Violence: Not on file Housing Stability: Low Risk (10/19/2023) Housing Stability Vital Sign Unable to Pay for Housing in the Last Year: No Number of Places Lived in the Last Year: 1 Unstable Housing in the Last Year: No PHYSICAL EXAM BP 123/78 Pulse 77 Temp 36.9 C (98.5 F) Resp 16 Ht 5' 5.5 (1.664 m) Wt 247 lb 6.4 oz (112 kg) BMI 40.54 kg/m Physical Exam Constitutional: Appearance: Normal appearance. HENT: Head: Normocephalic and atraumatic. Cardiovascular: Rate and Rhythm: Regular rhythm. Pulmonary: Effort: Pulmonary effort is normal. Breath sounds: Normal breath sounds. Abdominal: Hernia: A hernia (soccer ball size, RLQ-) is present. Neurological: Mental Status: She is alert. LABORATORY STUDIES AND IMAGING CT Nov 13 2023: GI tract: The patient's large ventral hernia is unchanged, again containing most of the large and small bowel. There is no evidence of bowel obstruction. Patulous primary bowel anastomotic sites are again seen in the hernia. Laboratory Studies: Recent Labs 11/13/23 1006 NA 137 K 4.3 CL 110* CO2 21* BUN 14 CREATININE 0.44* GLUCOSE 103* CALCIUM 8.8 Recent Labs 11/13/23 1006 WBC 8.3 RBC 4.21 HGB 13.1 HCT 40.2 MCV 95.5 MCH 31.1 MCHC 32.6 RDW 12.5 PLT 241 MPV 8.8 Recent Labs 11/13/23 1006 ALKPHOS 38 ALT 20 AST 19 PROT 6.5 BILITOT 0.2 BILIDIR 0.0 LIPASE 221 Imaging Studies Reviewed: CT scan on 11/13/23 was personally reviewed and interpreted. Large ventral hernia. ASSESSMENT Assessment/Plan Based on today's evaluation, it is unclear if the patient is a candidate for bariatric surgery. Patient underwent some type of bile diversion surgery by Dr. Guerrero in 2007. It is unclear at this time why this procedure was performed. Following this procedure, she underwent 2 ventral hernia repairs which were emergently performed for incarceration. She presents today with a BMI of 40 and a large recurrent incisional hernia. Prior to proceeding with surgical intervention, patient will require further workup as outlined below. Additionally, we will perform an EGD/colonoscopy, upper GI swallow with small bowel follow-through. We will also obtain medical records from [facility] and [facility] in [facility]. Pending results of these operative report, we will determine whether or not we need to proceed with an MRCP to assess for hepaticojejunostomy for further assessment. Patient will follow-up with Dr. Steven, for D&E and possibly for medical weight loss drugs if patient is not a candidate for bariatric surgery. Follow-up with me at bariatrics or general surgery practice pending workup. Mel was seen today for surgical consult. Diagnoses and all orders for this visit: Ventral hernia with obstruction and without gangrene (Primary) - [facility] – [place] General Surgery - Serafin Onofrelucila, DO - FL upper GI single contrast w small bowel follow through; Future Morbid obesity with BMI of 40.0-44.9, adult (HCC) Right lower quadrant abdominal pain - FL upper GI single contrast w small bowel follow through; Future Change in bowel function We reviewed the potential risk of the procedure including but not limited to injury to intra-abdominal organs, breakdown of the gastric staple line, the need for re-operative therapy, prolonged hospitalization, mechanical ventilation, and . We discussed the possibility of bleeding, the need for blood transfusions, blood clots, hospital-acquired and intra-abdominal infection, anastomotic stricture, and worsening GERD. And we discussed the need for post-operative visit compliance, behavior modifications and dietary compliance, protein and vitamin supplementation, as well as routine scheduled and dedicated exercise. We discussed the potential weight loss benefit, resolution of co-morbid conditions, as well as the possibility of insufficient weight loss or weight gain after 2 years post-operative time. Upon completion of all required pre-operative testing we will submit for insurance pre-authorization. PLAN I have recommended proceeding with the evaluation and work-up for the primary procedure as outlined below: PATIENT SUMMARY Mel Taylor 38 y.o. female with Body mass index is 40.54 kg/m . 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 PCP: Rob Perez INITIAL TESTING RESULTS Labwork [x] CMP, TSH, Fasting Lipid Profile, Mg, Zinc, Vit B1 (whole blood), Vit B12, 25-OH Vit D, Fe, Ferritin, Folate Tobacco [x] Serum Nicotine / Cotinine [] Negative [] Positive EGD [x] Dx: [] GERD [x] Dyspepsia [] Other LB sent request for EGD and c scope to ALS. Pathology [x] H. pylori [] Negative [] Positive UGI [x] [] not ordered US Abdomen [] [x] not ordered CT completed. JAGJIT eval [] [] On CPAP / Obtain settings Hematology [] [] Hypercoagulation panel Toxicology [] [] Urine drug screen [] EtOH screen Addtional [x] [x] Hgb A1c Additionally, we will perform an EGD/colonoscopy, upper GI swallow with small bowel follow-through. We will also obtain medical records from [facility] (~2016) and [facility] in [facility] (~2015 [place], ~2007 [place]). Pending results of these operative report, we will determine whether or not we need to proceed with an MRCP to assess for hepaticojejunostomy for further assessment. Patient will follow-up with Dr. Steven, for D&E and possibly for medical weight loss drugs if patient is not a candidate for bariatric surgery. Follow-up with me at bariatrics or general surgery practice pending workup. INITIAL CONSULTATIONS CLEARANCE / MANAGEMENT Psychology [x] Dr. Rothman [x] Cardiology [x] [] not ordered Pulmonary [] [x] not ordered Others [] []Heme/Onc []Psychiatry []Pain mgmt PSD [] Physician supervised diet: []None [x]3 mos []6 mos Preop diet [x] Preop low calory diet: []None [x]1 wk []2 wks []Ext. FINAL PRE-OP TESTING RESULTS Labwork [x] [x]Pre-op CBC [x]BMP []Serum Nicotine / Cotinine EKG [x] CXR [x] POST-OP MEDICATIONS Ulcer Ppx [] Omeprazole 20 mg PO []QD []BID Gallstone Ppx [] Ursodiol 300 mg []BID DVT Ppx [] DVT prophylaxis per final preop visit estimated risk Estimated calculated risk: % Schedule final pre-operative office visit with surgeon, pre-operative education class, and pre-operative exercise class prior to date of surgery ATTESTATION I reviewed with the patient the details of the proposed operation. The risks benefits and options were discussed. Risks included but were not limited to bleeding, infection, damage to other surrounding organs, cardio-pulmonary complications related to anesthesia, conversion from laparoscopic to and open procedure, the need for reoperative or endoscopic therapy, the potential for prolonged mechanical ventilation, and . All questions were fully answered to the patient's satisfaction and they wish to proceed with surgical intervention. I personally performed the evaluation and management of Mel Wall in the development of a treatment plan for this patient. I personally interviewed the patient and performed an individual physical examination. In addition, I discussed the patient's condition and treatment options with them. I have also reviewed and agree with the past medical, family and social history unless otherwise noted. All of the patient's questions were answered. I personally spent 60 minutes of time between the face to face encounter, physical exam, reviewing the medical history, coordinating the patient's care, counseling/educating the patient, ordering prescriptions/medications/tests/proc edures, interpreting results and documenting clinical information in the patient's electronic health record on the day of the encounter. Patient Care Team: [facility] as PCP - General Serafin Taylor DO as Surgeon (General Surgery) documented in this encounter [facility] 11-15-2023 History of Present illness Narrative [facility] SURGICAL WEIGHT LOSS MANAGEMENT PROGRAM Rooming Note - INITIAL CONSULTATION Patient: Mel Wall Date of : 1985 Service Date: 11/15/2023 Patient is here today to discuss the possibility of weight loss surgery. This patient is alone for the evaluation today she is interested in discussing weight loss surgery. Physician Supervised D/E: 3 Weight Metrics: Vitals BP: 123/78 Heart Rate: 77 Resp: 16 Temp: 36.9 C (98.5 F) Baseline Measures Initial Height: 5' 5.5 (166.4 cm) Initial Weight: 247 lb 6.4 oz (112 kg) Initial BMI: 40.54 Initial EBW: 119 lb 14.4 oz (54.4 kg) Initial Waist Cricumference: 51.5 Initial Neck Circumference: 16 Falls Risk Assessment Patient does nottake medications which affect BP or mental status Patient does not have newly prescribed or changed dosage of medications within past 30 days which affect BP or mental status Patient has not fallen in the past 2 months Patient does not demonstrate unsteady gait Patient uses the following ambulatory assistive devices: none Patient is low risk for falls. If high or moderate risk, patient instructed not to ambulate independently in the Center, and cord for call light placed within reach of patient. History of Difficult Intubation: No Patient is not on home O2 Completed by: Ally Edward LPN Images from the original note were not included. RODNEY BLEDSOE DO, [facility] BARIATRIC AND ROBOTIC SURGERY [facility] BARIATRIC EVALUATION - HISTORY AND PHYSICAL 11/15/23 PATIENT: Mel Wall DATE OF : 1985 HISTORY OF PRESENT ILLNESS Chief Complaint: Obesity and associated conditions. Mel Wall is a 38 y.o. female with obesity and associated conditions who presents to the [facility] [place] for evaluation for metabolic/bariatric surgery. The patient stands Height: 5' 5.5 (166.4 cm) tall with a weight of Weight: 247 lb 6.4 oz (112 kg) , and has a BMI of Body mass index is 40.54 kg/m .. The patient has failed multiple attempts at non-surgical weight loss, and is now seeking surgical intervention to promote permanent and consistent weight loss. The patient suffers from several co-morbidities as a result of obesity as outlined in the past medical history. The patient denies a history of myocardia infarction, deep vein thrombosis, pulmonary embolism, renal failure, hepatic failure, stroke, and seizure. She does not smoke, and does not drink alcohol. Works at [employer].- referral program. Review of Systems Constitutional: Negative for fatigue and fever. Respiratory: Negative for cough, chest tightness and shortness of breath. Cardiovascular: Negative for chest pain and leg swelling. Gastrointestinal: Positive for abdominal pain and blood in stool. Negative for vomiting. Genitourinary: Negative for frequency and urgency. Musculoskeletal: Negative for arthralgias, back pain and gait problem. Neurological: Negative for light-headedness and headaches. Psychiatric/Behavioral: Negative for dysphoric mood. The patient is nervous/anxious. States she was in ER this past weekend for lower abdominal pain, that is causing worsening pain. She notes hernia dates back to 2020. She had mesh removed by surgeon in [place] from prior hernia repair, the mesh had strangulated the bowel, and since that time noted large RLQ hernia. This was done in 2020. Can't wear binder, causes too much pressure. Bowel function is affected, she notes only bloody stool the last 3 days. Last 'regular bm was on Tuesday, 3 days ago. She is not straining to have bowel movement. Notes history of hemorrhoids. Stool is black, not on iron. OCD - Buspar, Lost 90 lb over the last year w Keto - plateau reached at 245 lb. PAST HISTORIES Past Medical History: Diagnosis Date Abdominal pain Anxiety Bipolar affective (HCC) Depression Morbid obesity, unspecified obesity type (HCC) Past Surgical History: Procedure Laterality Date APPENDECTOMY CHOLECYSTECTOMY HERNIA REPAIR OTHER SURGICAL HISTORY 2007 JANEL-EN-Y W/GASTROENTEROS--DR Rehman TONSILLECTOMY Family History Problem Relation Name Age of Onset Hypertension Father Diabetes Father Allergies Allergen Reactions Ketorolac Hives and Shortness of breath Other reaction(s): Hives Ondansetron Shortness of breath and Hives Other reaction(s): Hives, Respiratory distress Current Outpatient Medications Medication Sig Dispense Refill busPIRone (Buspar) 30 MG tablet Take 30 mg by mouth in the morning and 30 mg in the evening. FLUoxetine (PROzac) 40 MG capsule Take 80 mg by mouth in the morning. No current facility-administered medications for this visit. Social History Socioeconomic History Marital status: Single Spouse name: Not on file Number of children: Not on file Years of education: Not on file Highest education level: Not on file Occupational History Not on file Tobacco Use Smoking status: Never Smokeless tobacco: Never Substance and Sexual Activity Alcohol use: Not Currently Drug use: Yes Frequency: 2.0 times per week Types: Marijuana Sexual activity: Not Currently Other Topics Concern Not on file Social History Narrative Not on file Social Determinants of Health Financial Resource Strain: Not on file Food Insecurity: Not on file Transportation Needs: No Transportation Needs (10/19/2023) PRAPARE - Transportation Lack of Transportation (Medical): No Lack of Transportation (Non-Medical): No Physical Activity: Not on file Stress: Not on file Social Connections: Not on file Intimate Partner Violence: Not on file Housing Stability: Low Risk (10/19/2023) Housing Stability Vital Sign Unable to Pay for Housing in the Last Year: No Number of Places Lived in the Last Year: 1 Unstable Housing in the Last Year: No PHYSICAL EXAM BP 123/78 Pulse 77 Temp 36.9 C (98.5 F) Resp 16 Ht 5' 5.5 (1.664 m) Wt 247 lb 6.4 oz (112 kg) BMI 40.54 kg/m Physical Exam Constitutional: Appearance: Normal appearance. HENT: Head: Normocephalic and atraumatic. Cardiovascular: Rate and Rhythm: Regular rhythm. Pulmonary: Effort: Pulmonary effort is normal. Breath sounds: Normal breath sounds. Abdominal: Hernia: A hernia (soccer ball size, RLQ-) is present. Neurological: Mental Status: She is alert. LABORATORY STUDIES AND IMAGING CT Nov 13 2023: GI tract: The patient's large ventral hernia is unchanged, again containing most of the large and small bowel. There is no evidence of bowel obstruction. Patulous primary bowel anastomotic sites are again seen in the hernia. Laboratory Studies: Recent Labs 11/13/23 1006 NA 137 K 4.3 CL 110* CO2 21* BUN 14 CREATININE 0.44* GLUCOSE 103* CALCIUM 8.8 Recent Labs 11/13/23 1006 WBC 8.3 RBC 4.21 HGB 13.1 HCT 40.2 MCV 95.5 MCH 31.1 MCHC 32.6 RDW 12.5 PLT 241 MPV 8.8 Recent Labs 11/13/23 1006 ALKPHOS 38 ALT 20 AST 19 PROT 6.5 BILITOT 0.2 BILIDIR 0.0 LIPASE 221 Imaging Studies Reviewed: CT scan on 11/13/23 was personally reviewed and interpreted. Large ventral hernia. ASSESSMENT Assessment/Plan Based on today's evaluation, it is unclear if the patient is a candidate for bariatric surgery. Patient underwent some type of bile diversion surgery by Dr. Guerrero in 2007. It is unclear at this time why this procedure was performed. Following this procedure, she underwent 2 ventral hernia repairs which were emergently performed for incarceration. She presents today with a BMI of 40 and a large recurrent incisional hernia. Prior to proceeding with surgical intervention, patient will require further workup as outlined below. Additionally, we will perform an EGD/colonoscopy, upper GI swallow with small bowel follow-through. We will also obtain medical records from [facility] and [facility] in [facility]. Pending results of these operative report, we will determine whether or not we need to proceed with an MRCP to assess for hepaticojejunostomy for further assessment. Patient will follow-up with Dr. Steven, for D&E and possibly for medical weight loss drugs if patient is not a candidate for bariatric surgery. Follow-up with me at bariatrics or general surgery practice pending workup. Mel was seen today for surgical consult. Diagnoses and all orders for this visit: Ventral hernia with obstruction and without gangrene (Primary) - [facility] – [place] General Surgery - Serafin Taylor, - [place] upper GI single contrast w small bowel follow through; Future Morbid obesity with BMI of 40.0-44.9, adult (HCC) Right lower quadrant abdominal pain - [place] upper GI single contrast w small bowel follow through; Future Change in bowel function We reviewed the potential risk of the procedure including but not limited to injury to intra-abdominal organs, breakdown of the gastric staple line, the need for re-operative therapy, prolonged hospitalization, mechanical ventilation, and . We discussed the possibility of bleeding, the need for blood transfusions, blood clots, hospital-acquired and intra-abdominal infection, anastomotic stricture, and worsening GERD. And we discussed the need for post-operative visit compliance, behavior modifications and dietary compliance, protein and vitamin supplementation, as well as routine scheduled and dedicated exercise. We discussed the potential weight loss benefit, resolution of co-morbid conditions, as well as the possibility of insufficient weight loss or weight gain after 2 years post-operative time. Upon completion of all required pre-operative testing we will submit for insurance pre-authorization. PLAN I have recommended proceeding with the evaluation and work-up for the primary procedure as outlined below: PATIENT SUMMARY Mel Taylor 38 y.o. female with Body mass index is 40.54 kg/m . 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 PCP: Dominguez Michelle Perez INITIAL TESTING RESULTS Labwork [x] CMP, TSH, Fasting Lipid Profile, Mg, Zinc, Vit B1 (whole blood), Vit B12, 25-OH Vit D, Fe, Ferritin, Folate Tobacco [x] Serum Nicotine / Cotinine [] Negative [] Positive EGD [x] Dx: [] GERD [x] Dyspepsia [] Other LB sent request for EGD and c scope to ALS. Pathology [x] H. pylori [] Negative [] Positive UGI [x] [] not ordered US Abdomen [] [x] not ordered CT completed. JAGJIT eval [] [] On CPAP / Obtain settings Hematology [] [] Hypercoagulation panel Toxicology [] [] Urine drug screen [] EtOH screen Addtional [x] [x] Hgb A1c Additionally, we will perform an EGD/colonoscopy, upper GI swallow with small bowel follow-through. We will also obtain medical records from [facility] (~2016) and [facility] in [facility] (~2015 [place], ~2007 [place]). Pending results of these operative report, we will determine whether or not we need to proceed with an MRCP to assess for hepaticojejunostomy for further assessment. Patient will follow-up with Dr. Steven, for D&E and possibly for medical weight loss drugs if patient is not a candidate for bariatric surgery. Follow-up with me at bariatrics or general surgery practice pending workup. INITIAL CONSULTATIONS CLEARANCE / MANAGEMENT Psychology [x] Dietitian [x] Cardiology [x] [] not ordered Pulmonary [] [x] not ordered Others [] []Heme/Onc []Psychiatry []Pain mgmt PSD [] Physician supervised diet: []None [x]3 mos []6 mos Preop diet [x] Preop low calory diet: []None [x]1 wk []2 wks []Ext. FINAL PRE-OP TESTING RESULTS Labwork [x] [x]Pre-op CBC [x]BMP []Serum Nicotine / Cotinine EKG [x] CXR [x] POST-OP MEDICATIONS Ulcer Ppx [] Omeprazole 20 mg PO []QD []BID Gallstone Ppx [] Ursodiol 300 mg []BID DVT Ppx [] DVT prophylaxis per final preop visit estimated risk Estimated calculated risk: % Schedule final pre-operative office visit with surgeon, pre-operative education class, and pre-operative exercise class prior to date of surgery ATTESTATION I reviewed with the patient the details of the proposed operation. The risks benefits and options were discussed. Risks included but were not limited to bleeding, infection, damage to other surrounding organs, cardio-pulmonary complications related to anesthesia, conversion from laparoscopic to and open procedure, the need for reoperative or endoscopic therapy, the potential for prolonged mechanical ventilation, and . All questions were fully answered to the patient's satisfaction and they wish to proceed with surgical intervention. I personally performed the evaluation and management of Mel Wall in the development of a treatment plan for this patient. I personally interviewed the patient and performed an individual physical examination. In addition, I discussed the patient's condition and treatment options with them. I have also reviewed and agree with the past medical, family and social history unless otherwise noted. All of the patient's questions were answered. I personally spent 60 minutes of time between the face to face encounter, physical exam, reviewing the medical history, coordinating the patient's care, counseling/educating the patient, ordering prescriptions/medications/tests/proc edures, interpreting results and documenting clinical information in the patient's electronic health record on the day of the encounter. Patient Care Team: [facility] as PCP - General Serafin Taylor DO as Surgeon (General Surgery) documented in this encounter [facility] 11-15-2023 Miscellaneous Notes Addended by: REMEDIOS LEWIS on: 02/03/2024 02:16 PM Modules accepted: Orders documented in this encounter [facility] 11-15-2023 Note Addended by: REMEDIOS LEWIS on: 02/03/2024 02:16 PM Modules accepted: Orders [facility] 11-13-2023 Emergency department Note Home going instructions given to pt. Verbalized understanding and d/c'd amb from ER in satisfactory condition Moira Galeano RN 11/13/23 1152 [facility] 11-13-2023 Emergency department Note Home going instructions given to pt. Verbalized understanding and d/c'd amb from ER in satisfactory condition Moira Galeano RN 11/13/23 1152 Given Crackers and water. Wants pain meds too. JAZZY Jimenez 11/13/23 1107 Pt to radiology via cart for CT Moira Galeano RN 11/13/23 1049 EMERGENCY DEPARTMENT ENCOUNTER Pt Name: Mel Wall Birthdate 1985 Date of evaluation: 11/13/2023 ED Provider: Alan Borjas DO CHIEF COMPLAINT Chief Complaint Patient presents with Abdominal Pain Pt c/o abdominal pain x 3 days after days of coughing. States has abdominal hernia. States vomited once since Tuesday HISTORY OF PRESENT ILLNESS (Location/Symptom, Timing/Onset, Context/Setting, Quality, Duration, Modifying Factors, Severity) Note limiting factors. I wore appropriate PPE for the entirety of this encounter. JACQUELYN Wall is a 38 y.o. female who presents to the emergency department with abdominal pain. The patient reports that symptoms have been ongoing over the past few days. She reports pain is located in the mid abdomen, described as sharp, and severe in intensity. The patient has history of a ventral hernia and multiple hernia repairs. She reports multiple episodes of nausea and vomiting. She also reports multiple watery stools. She reports that her symptoms were previously accompanied by congestion and cough however those symptoms have resolved at this time. Nursing Notes were reviewed. Limitations to history: Outside historians: REVIEW OF SYSTEMS Review of Systems HENT: Positive for congestion. Respiratory: Positive for cough. Gastrointestinal: Positive for abdominal pain, diarrhea, nausea and vomiting. PAST MEDICAL HISTORY Past Medical History: Diagnosis Date Anxiety Bipolar affective (HCC) Depression Morbid obesity, unspecified obesity type (HCC) SURGICAL HISTORY Past Surgical History: Procedure Laterality Date APPENDECTOMY CHOLECYSTECTOMY HERNIA REPAIR OTHER SURGICAL HISTORY JANEL-EN-Y W/GASTROENTEROS TONSILLECTOMY CURRENT MEDICATIONS Discharge Medication List as of 11/13/2023 11:29 AM CONTINUE these medications which have NOT CHANGED Details busPIRone (Buspar) 30 MG tablet Take 30 mg by mouth in the morning and 30 mg in the evening., Starting 12/22/2022, Until 10/30/2023, Historical Med FLUoxetine (PROzac) 40 MG capsule Take 80 mg by mouth in the morning., Starting Tue12/22/2022, Until 10/30/2023, Historical Med guanFACINE (Intuniv) 1 mg 24 hr tablet Take 1 tablet by mouth Nightly., Starting Tue08/31/2023, Until 10/30/2023, Historical Med ALLERGIES Ketorolac and Ondansetron FAMILY HISTORY No family history on file. SOCIAL HISTORY Social History Socioeconomic History Marital status: Single Tobacco Use Smoking status: Never Smokeless tobacco: Never Substance and Sexual Activity Drug use: Yes Types: Marijuana Social Determinants of Health Transportation Needs: No Transportation Needs (10/19/2023) PRAPARE - Transportation Lack of Transportation (Medical): No Lack of Transportation (Non-Medical): No Housing Stability: Low Risk (10/19/2023) Housing Stability Vital Sign Unable to Pay for Housing in the Last Year: No Number of Places Lived in the Last Year: 1 Unstable Housing in the Last Year: No SCREENINGS PHYSICAL EXAM ED Triage Vitals Temp Pulse Resp BP -- -- -- -- SpO2 Temp src Heart Rate Source Patient Position -- -- -- -- BP Location FiO2 (%) -- -- Physical Exam Constitutional: General: She is not in acute distress. HENT: Head: Normocephalic. Eyes: Conjunctiva/sclera: Conjunctivae normal. Cardiovascular: Rate and Rhythm: Normal rate and regular rhythm. Pulmonary: Effort: Pulmonary effort is normal. Abdominal: General: Abdomen is flat. Tenderness: There is generalized abdominal tenderness. Comments: Ventral hernia with large defect is present, the hernia is able to be reduced Musculoskeletal: General: No deformity. Skin: General: Skin is warm and dry. Psychiatric: Mood and Affect: Mood normal. DIAGNOSTIC RESULTS RADIOLOGY (Per Emergency Physician): Interpretation per the Radiologist below, if available at the time of this note: CT abdomen pelvis wo IV contrast Final Result 1. No evidence of bowel obstruction. 2. Unchanged large ventral hernia containing most of the large and small bowel. Report Dictated on Electronically Signed By: Dilip Holliday MD Electronically Signed Date/Time: 11/13/2023 11:16 AM EST LABS: Labs Reviewed BASIC METABOLIC PANEL - Abnormal Result Value SODIUM 137 POTASSIUM 4.3 CHLORIDE 110 (*) CARBON DIOXIDE 21 (*) UREA NITROGEN 14 CREATININE 0.44 (*) GLUCOSE 103 (*) CALCIUM 8.8 ANION GAP 6 eGFR >90.0 CBC (HEMOGRAM) - Normal Auto WBC 8.3 RBC 4.21 Hemoglobin 13.1 Hematocrit 40.2 MCV 95.5 MCH 31.1 MCHC 32.6 RDW 12.5 Platelets 241 MPV 8.8 LIPASE - Normal LIPASE 221 HEPATIC FUNCTION PANEL - Normal BILIRUBIN, TOTAL 0.2 BILIRUBIN, DIRECT 0.0 ALKALINE PHOSPHATASE 38 AST (SGOT) 19 ALT 20 ALBUMIN 4.0 TOTAL PROTEIN 6.5 LACTIC ACID WITH REFLEX - Normal LACTIC ACID 1.1 COMPLETE URINALYSIS - Normal Color, Urine Light Yellow Clarity, Urine Clear pH, Urine 5.5 Leukocytes, Urine Negative Nitrite, Urine Negative Protein, Urine Negative Glucose, Urine Normal Bilirubin, Urine Negative Ketones, Urine Negative Urobilinogen, Urine Normal Blood, Urine Negative SPECIFIC GRAVITY OF URINE (NUMERIC) 1.024 HCG QUANTITATIVE BLOOD HCG QUANTITATIVE <2 Narrative: Values in should double every 2 to 3 days for the first 6 weeks. Elevated concentrations of human chorionic gonadotropin (hCG) measured in the first trimester of are observed in normal , but may serve as an indication of chorionic carcinoma, hydatiform mole, or multiple . Decreasing hCG concentrations indicate threatened or missed , recent termination of , ectopic , gestosis or intrauterine . Yanelis- and postmenopausal females may have detectable hCG concentrations (< or = to 14 mIU/mL) due to pituitary production of hCG. Serum follicle-stimulating hormone measurement may aid in ruling-out in this population. Cutoffs of greater than 20 to 45 mIU/mL have been suggested and are method dependent. False-elevations (called phantom human chorionic gonadotropin: hCG) may occur with patients who have human antianimal or heterophilic antibodies. Some specimens may not dilute linearly due to abnormal forms of hCG. Elevated hCG concentrations not associated with are found in patients with other diseases such as tumors of the germ cells, ovaries, bladder, pancreas, stomach, lungs, and liver. This test is not intended to detect or monitor tumors or gestational trophoblastic disease. COMPLETE URINALYSIS WITH REFLEX TO CULTURE Narrative: The following orders were created for panel order Urinalysis complete with reflex to Culture. Procedure Abnormality Status --------- ------ Complete Urinalysis[[id number]] Normal Final result Please view results for these tests on the individual orders. All other labs were within normal range or not returned as of this dictation. EMERGENCY DEPARTMENT COURSE and DIFFERENTIAL DIAGNOSIS/MDM: Vitals: Vitals: 11/13/23 0923 11/13/23 1150 BP: 138/78 110/68 Pulse: 88 64 Resp: 22 16 Temp: 36.8 C (98.2 F) SpO2: 100% 98% Weight: 109 kg (240 lb) Medications sodium chloride 0.9 % bolus 1,000 mL (0 mL IntraVENous Stopped 11/13/23 1139) morphine injection 4 mg (4 mg IntraVENous Given 11/13/23 1013) metoclopramide (Reglan) injection 10 mg (10 mg IntraVENous Given 11/13/23 1010) famotidine (Pepcid) 20 mg in sodium chloride (PF) 0.9 % 10 mL injection (20 mg IntraVENous Given 11/13/23 1014) dicyclomine (Bentyl) injection 20 mg (20 mg IntraMUSCular Given 11/13/23 1017) MDM The patient presented with chief complaint of abdominal pain. The patient appears uncomfortable however no acute distress, vitals are stable. See history and physical exam above. Differential diagnose includes but is not limited to bowel obstruction, gastroenteritis, incarcerated hernia, strangulated hernia. The patient was given Reglan 10 mg IV, morphine 4 mg IV, Bentyl 20 mg IM, and 1 L normal saline bolus. To aid in management, I performed an independent interpretation of all laboratory tests, EKG, imaging, and other diagnostics ordered. Blood counts, electrolytes, kidney function, hepatic function, lipase, and urinalysis are unremarkable. CT scan of the abdomen is negative for acute processes. On reevaluation the patient has improved symptoms and she is able to tolerate p.o. She was updated on the results and questions were answered. Plan for discharge with follow-up to PCP. I Alan Borjas DO am the industrial equipment wirer of record. PROCEDURES: Unless otherwise noted below, none Procedures FINAL IMPRESSION 1. Vomiting and diarrhea 2. Generalized abdominal pain 3. Ventral hernia without obstruction or gangrene DISPOSITION Discharge 11/13/2023 11:28:50 AM PATIENT REFERRED TO: [facility] [address] [address] Schedule an appointment as soon as possible for a visit [facility] Emergency Dept [address] [place], [place] [address] [facility] [id number] If symptoms worsen DISCHARGE MEDICATIONS: Discharge Medication List as of 11/13/2023 11:29 AM (Comment: Please note this report has been produced using speech recognition software and may contain errors related to that system including errors in grammar, punctuation, and spelling, as well as words and phrases that may be inappropriate. If there are any questions or concerns please feel free to contact the dictating provider for clarification.) Alan Borjas DO (electronically signed) Emergency Medicine Provider Alan Borjas DO 11/13/23 1320 documented in this encounter [facility] 11-13-2023 Emergency department Note Given Crackers and water. Wants pain meds too. Dalton Arrieta, EMT 11/13/23 1107 [facility] 11-13-2023 Emergency department Note Pt to radiology via cart for CT Moira Galeano RN 11/13/23 1049 [facility] 11-13-2023 Physician Emergency department Note EMERGENCY DEPARTMENT ENCOUNTER Pt Name: Mel Wall Birthdate 1985 Date of evaluation: 11/13/2023 ED Provider: Alan Borjas DO CHIEF COMPLAINT Chief Complaint Patient presents with Abdominal Pain Pt c/o abdominal pain x 3 days after days of coughing. States has abdominal hernia. States vomited once since Tuesday HISTORY OF PRESENT ILLNESS (Location/Symptom, Timing/Onset, Context/Setting, Quality, Duration, Modifying Factors, Severity) Note limiting factors. I wore appropriate PPE for the entirety of this encounter. HPI Mel Wall is a 38 y.o. female who presents to the emergency department with abdominal pain. The patient reports that symptoms have been ongoing over the past few days. She reports pain is located in the mid abdomen, described as sharp, and severe in intensity. The patient has history of a ventral hernia and multiple hernia repairs. She reports multiple episodes of nausea and vomiting. She also reports multiple watery stools. She reports that her symptoms were previously accompanied by congestion and cough however those symptoms have resolved at this time. Nursing Notes were reviewed. Limitations to history: Outside historians: REVIEW OF SYSTEMS Review of Systems HENT: Positive for congestion. Respiratory: Positive for cough. Gastrointestinal: Positive for abdominal pain, diarrhea, nausea and vomiting. PAST MEDICAL HISTORY Past Medical History: Diagnosis Date Anxiety Bipolar affective (HCC) Depression Morbid obesity, unspecified obesity type (HCC) SURGICAL HISTORY Past Surgical History: Procedure Laterality Date APPENDECTOMY CHOLECYSTECTOMY HERNIA REPAIR OTHER SURGICAL HISTORY JANEL-EN-Y W/GASTROENTEROS TONSILLECTOMY CURRENT MEDICATIONS Discharge Medication List as of 11/13/2023 11:29 AM CONTINUE these medications which have NOT CHANGED Details busPIRone (Buspar) 30 MG tablet Take 30 mg by mouth in the morning and 30 mg in the evening., Starting Tue12/22/2022, Until 10/30/2023, Historical Med FLUoxetine (PROzac) 40 MG capsule Take 80 mg by mouth in the morning., Starting Tue12/22/2022, Until 10/30/2023, Historical Med guanFACINE (Intuniv) 1 mg 24 hr tablet Take 1 tablet by mouth Nightly., Starting Tue08/31/2023, Until 10/30/2023, Historical Med ALLERGIES Ketorolac and Ondansetron FAMILY HISTORY No family history on file. SOCIAL HISTORY Social History Socioeconomic History Marital status: Single Tobacco Use Smoking status: Never Smokeless tobacco: Never Substance and Sexual Activity Drug use: Yes Types: Marijuana Social Determinants of Health Transportation Needs: No Transportation Needs (10/19/2023) PRAPARE - Transportation Lack of Transportation (Medical): No Lack of Transportation (Non-Medical): No Housing Stability: Low Risk (10/19/2023) Housing Stability Vital Sign Unable to Pay for Housing in the Last Year: No Number of Places Lived in the Last Year: 1 Unstable Housing in the Last Year: No SCREENINGS PHYSICAL EXAM ED Triage Vitals Temp Pulse Resp BP -- -- -- -- SpO2 Temp src Heart Rate Source Patient Position -- -- -- -- BP Location FiO2 (%) -- -- Physical Exam Constitutional: General: She is not in acute distress. HENT: Head: Normocephalic. Eyes: Conjunctiva/sclera: Conjunctivae normal. Cardiovascular: Rate and Rhythm: Normal rate and regular rhythm. Pulmonary: Effort: Pulmonary effort is normal. Abdominal: General: Abdomen is flat. Tenderness: There is generalized abdominal tenderness. Comments: Ventral hernia with large defect is present, the hernia is able to be reduced Musculoskeletal: General: No deformity. Skin: General: Skin is warm and dry. Psychiatric: Mood and Affect: Mood normal. DIAGNOSTIC RESULTS RADIOLOGY (Per Emergency Physician): Interpretation per the Radiologist below, if available at the time of this note: CT abdomen pelvis wo IV contrast Final Result 1. No evidence of bowel obstruction. 2. Unchanged large ventral hernia containing most of the large and small bowel. Report Dictated on Electronically Signed By: Dilip Holliday MD Electronically Signed Date/Time: 11/13/2023 11:16 AM EST LABS: Labs Reviewed BASIC METABOLIC PANEL - Abnormal Result Value SODIUM 137 POTASSIUM 4.3 CHLORIDE 110 (*) CARBON DIOXIDE 21 (*) UREA NITROGEN 14 CREATININE 0.44 (*) GLUCOSE 103 (*) CALCIUM 8.8 ANION GAP 6 eGFR >90.0 CBC (HEMOGRAM) - Normal Auto WBC 8.3 RBC 4.21 Hemoglobin 13.1 Hematocrit 40.2 MCV 95.5 MCH 31.1 MCHC 32.6 RDW 12.5 Platelets 241 MPV 8.8 LIPASE - Normal LIPASE 221 HEPATIC FUNCTION PANEL - Normal BILIRUBIN, TOTAL 0.2 BILIRUBIN, DIRECT 0.0 ALKALINE PHOSPHATASE 38 AST (SGOT) 19 ALT 20 ALBUMIN 4.0 TOTAL PROTEIN 6.5 LACTIC ACID WITH REFLEX - Normal LACTIC ACID 1.1 COMPLETE URINALYSIS - Normal Color, Urine Light Yellow Clarity, Urine Clear pH, Urine 5.5 Leukocytes, Urine Negative Nitrite, Urine Negative Protein, Urine Negative Glucose, Urine Normal Bilirubin, Urine Negative Ketones, Urine Negative Urobilinogen, Urine Normal Blood, Urine Negative SPECIFIC GRAVITY OF URINE (NUMERIC) 1.024 HCG QUANTITATIVE BLOOD HCG QUANTITATIVE <2 Narrative: Values in should double every 2 to 3 days for the first 6 weeks. Elevated concentrations of human chorionic gonadotropin (hCG) measured in the first trimester of are observed in normal , but may serve as an indication of chorionic carcinoma, hydatiform mole, or multiple . Decreasing hCG concentrations indicate threatened or missed , recent termination of , ectopic , gestosis or intrauterine . Yanelis- and postmenopausal females may have detectable hCG concentrations (< or = to 14 mIU/mL) due to pituitary production of hCG. Serum follicle-stimulating hormone measurement may aid in ruling-out in this population. Cutoffs of greater than 20 to 45 mIU/mL have been suggested and are method dependent. False-elevations (called phantom human chorionic gonadotropin: hCG) may occur with patients who have human antianimal or heterophilic antibodies. Some specimens may not dilute linearly due to abnormal forms of hCG. Elevated hCG concentrations not associated with are found in patients with other diseases such as tumors of the germ cells, ovaries, bladder, pancreas, stomach, lungs, and liver. This test is not intended to detect or monitor tumors or gestational trophoblastic disease. COMPLETE URINALYSIS WITH REFLEX TO CULTURE Narrative: The following orders were created for panel order Urinalysis complete with reflex to Culture. Procedure Abnormality Status --------- ------ Complete Urinalysis[[id number]] Normal Final result Please view results for these tests on the individual orders. All other labs were within normal range or not returned as of this dictation. EMERGENCY DEPARTMENT COURSE and DIFFERENTIAL DIAGNOSIS/MDM: Vitals: Vitals: 11/13/23 0923 11/13/23 1150 BP: 138/78 110/68 Pulse: 88 64 Resp: 22 16 Temp: 36.8 C (98.2 F) SpO2: 100% 98% Weight: 109 kg (240 lb) Medications sodium chloride 0.9 % bolus 1,000 mL (0 mL IntraVENous Stopped 11/13/23 1139) morphine injection 4 mg (4 mg IntraVENous Given 11/13/23 1013) metoclopramide (Reglan) injection 10 mg (10 mg IntraVENous Given 11/13/23 1010) famotidine (Pepcid) 20 mg in sodium chloride (PF) 0.9 % 10 mL injection (20 mg IntraVENous Given 11/13/23 1014) dicyclomine (Bentyl) injection 20 mg (20 mg IntraMUSCular Given 11/13/23 1017) MDM The patient presented with chief complaint of abdominal pain. The patient appears uncomfortable however no acute distress, vitals are stable. See history and physical exam above. Differential diagnose includes but is not limited to bowel obstruction, gastroenteritis, incarcerated hernia, strangulated hernia. The patient was given Reglan 10 mg IV, morphine 4 mg IV, Bentyl 20 mg IM, and 1 L normal saline bolus. To aid in management, I performed an independent interpretation of all laboratory tests, EKG, imaging, and other diagnostics ordered. Blood counts, electrolytes, kidney function, hepatic function, lipase, and urinalysis are unremarkable. CT scan of the abdomen is negative for acute processes. On reevaluation the patient has improved symptoms and she is able to tolerate p.o. She was updated on the results and questions were answered. Plan for discharge with follow-up to PCP. I Alan Borjas DO am the industrial equipment wirer of record. PROCEDURES: Unless otherwise noted below, none Procedures FINAL IMPRESSION 1. Vomiting and diarrhea 2. Generalized abdominal pain 3. Ventral hernia without obstruction or gangrene DISPOSITION Discharge 11/13/2023 11:28:50 AM PATIENT REFERRED TO: [address] [address] Schedule an appointment as soon as possible for a visit [facility] Emergency Dept [address] [facility] [address] If symptoms worsen DISCHARGE MEDICATIONS: Discharge Medication List as of 11/13/2023 11:29 AM (Comment: Please note this report has been produced using speech recognition software and may contain errors related to that system including errors in grammar, punctuation, and spelling, as well as words and phrases that may be inappropriate. If there are any questions or concerns please feel free to contact the dictating provider for clarification.) Alan Borjas DO (electronically signed) Emergency Medicine Provider Alan Borjas DO 11/13/23 1320 [facility] 10-20-2023 Hospital Discharge instructions AKIRA North CNP - 10/20/2023 2:07 PM EST As tolerated AKIRA North CNP - 10/20/2023 2:07 PM EST resume documented in this encounter [facility] 10-20-2023 Note Formatting of this n ote might be different from the original. Reviewed chart. Observation status to CDU with ventral hernia. Surgery consulted and no acute surgical needs at this time and if tolerating diet and pain control anticipate probable discharge. Pain level still 9-10 requiring iv analgesics at this time.. .. [facility] 10-20-2023 Note Formatting of this n ote might be different from the original. Reviewed chart. Observation status to CDU with ventral hernia. Surgery consulted and no acute surgical needs at this time and if tolerating diet and pain control anticipate probable discharge. Pain level still 9-10 requiring iv analgesics at this time.. .. [facility] 10-20-2023 Miscellaneous Notes Reviewed chart. Observation status to CDU with ventral hernia. Surgery consulted and no acute surgical needs at this time and if tolerating diet and pain control anticipate probable discharge. Pain level still 9-10 requiring iv analgesics at this time.. .. Problem: Pain - Adult Goal: Verbalizes/displays adequate comfort level or baseline comfort level Outcome: Progressing Problem: Safety - Adult Goal: Free from fall injury Outcome: Progressing Problem: Discharge Planning Goal: Discharge to home or other facility with appropriate resources Outcome: Progressing Problem: Chronic Conditions and Co-morbidities Goal: Patient's chronic conditions and co-morbidity symptoms are monitored and maintained or improved Outcome: Progressing The patient is Moderately Stable - Low risk of patient condition declining or worsening The patient's goals for the shift include The clinical goals for the shift include pain management documented in this encounter [facility] 10-20-2023 History of Present illness Narrative Images from the original note were not included. Attending Attestation [facility] Medical [facility] - General Surgery Patient Name: Mel Wall Date: 10/20/23 Patient seen and examined. Feels better. Less Pain. Minimal nausea, no vomiting. Tolerating regular diet. Voiding. Sleeping when entered room. Exam: Abdomen: Soft, non-distended aside from large non-tender abdominal hernia with loss of domain present. Assessment and Plan: 38 y.o. female with longstanding recurrent incisional hernia with loss of domain of the abdominal wall -No surgical intervention indicated. -Abdomen is soft with no peritoneal signs present and she is not clinically obstructed at all. Imaging has been reviewed and compared to prior imaging and personally interpreted. Patient is tolerating diet without issue and pain is improved today. -I recommended to patient that she consider evaluation by advanced reconstruction experts, here at [facility] we have Dr. Taylor who does abdominal wall reconstruction but at the [facility] there are additional resources available and the patient is interested in further evaluation with any. She does not wish to go back to [facility]. -Okay for discharge to home from surgery standpoint -Please call if questions or concerns arise -Medical management per primary team. I personally interviewed the patient and performed an individual physical examination. In addition, I discussed the patient's condition and treatment options with them. I have also reviewed the past medical, family and social history and care plan unless otherwise noted. All of the patient's questions were answered. low medical decision making and case complexity with 25 minute total care time including chart review, care coordination and face to face encounter was spent discussing/counseling the patient regarding the care plan for this patient. The patient was seen and examined independently and relevant data reviewed by myself. A full chart review was performed. Ralph Greenfield MD, MPH General Surgery Perfect Serve: Ralph Greenfield 3:35 PM 10/20/2023 GENERAL SURGERY Progress Note PATIENT NAME: Mel Wall TODAY'S DATE: 10/20/2023 SUBJECTIVE: Follow up on longstanding ventral hernia. Patient seen this morning sitting up in bed, pleasant. She notes abdominal soreness at the hernia site. Patient notes mild nausea, improved, and denies further emesis. She is tolerating CLD. Patient notes that her last BM was 2 days ago. She is interested in transferring her care to the [facility] and would like to proceed with consultation regarding hernia repair and abdominal wall reconstruction- would like referral to Dr. Taylor on discharge. No overnight events noted. Pain controlled Yes Other Complaints No Flatus/BM/or Ostomy function Yes OBJECTIVE: VITALS: BP 96/65 Pulse 62 Temp 36.3 C (97.4 F) (Temporal) Resp 18 Wt 235 lb (107 kg) SpO2 99% BMI 39.11 kg/m INTAKE/OUTPUT: No intake/output data recorded. I/O this shift: In: 1000 [I.V.:1000] Out: - REVIEW OF SYSTEMS: Pertinent positives and negatives as per interval history section PHYSICAL EXAM: CONSTITUTIONAL: A&O x 3, LUNGS: Resp effort easy and unlabored, breath sounds normal CARDIOVASCULAR: RRR ABDOMEN: soft, nondistended, central tenderness with hernia palpation- hernia partially reducible, peritoneal signs absent MUSCULOSKELETAL: Normal range of motion NEUROLOGIC: Level of Alertness: alert PSYCHIATRIC: Speech is normal SKIN: Warm, dry, and intact Data: CBC: Recent Labs 10/19/23 1033 10/20/23 0340 WBC 8.2 7.5 HGB 13.2 12.5 HCT 40.0 36.8 PLT 247 232 BMP: Recent Labs 10/19/23 1033 10/20/23 0340 NA 135 138 K 5.0 4.1 CL 106 105 CO2 21* 24 BUN 10 9 CREATININE 0.42* 0.45* GLUCOSE 98 97 Hepatic: Recent Labs 10/19/23 1033 10/20/23 0340 AST 33 24 ALT 27 24 BILITOT 0.7 0.5 ALKPHOS 31* 39 ASSESSMENT AND PLAN: This is a 38 y.o. female with longstanding recurrent incisional hernia with loss of domain of the abdominal wall -WBC 7.5, Hgb 12.5 -Abdomen is soft with no peritoneal signs present and she is not clinically obstructed. Imaging has been reviewed and compared to prior imaging by Dr. Greenfield -Recommended evaluation by advanced reconstruction experts, here at [facility] we have Dr. Taylor who does abdominal wall reconstruction- patient requesting referral -Okay for diet as tolerated, antiemetic control ongoing -Please call if questions or concerns arise -Medical management per CDU Disposition: Patient with mild improvement in symptoms. Hernia longstanding without obstructive concern. Recommend diet as tolerated. Referral placed to Dr. Taylor for further care planning/surgical consultation. No acute surgical need at this time, okay for discharge. Patient counseled on risks, benefits, and alternatives of treatment plan today. Patient states an understanding and willingness to proceed with plan. HALEIGH Guajardo documented in this encounter [facility] 10-20-2023 Plan of care note Problem: Pain - Adult Goal: Verbalizes/displays adequate comfort level or baseline comfort level Outcome: Progressing Problem: Safety - Adult Goal: Free from fall injury Outcome: Progressing Problem: Discharge Planning Goal: Discharge to home or other facility with appropriate resources Outcome: Progressing Problem: Chronic Conditions and Co-morbidities Goal: Patient's chronic conditions and co-morbidity symptoms are monitored and maintained or improved Outcome: Progressing The patient is Moderately Stable - Low risk of patient condition declining or worsening The patient's goals for the shift include The clinical goals for the shift include pain management [facility] 10-19-2023 Consult note Associated Order (s): IP CONSULT TO GENERAL SURGERY Images from the original note were not included. Department of Surgery [facility] Ralph Greenfield MD, MPH Consult Note PATIENT NAME: Mel Wall : 1985 ATTENDING PHYSICIAN: Titi Dang MD ADMIT DATE: 10/19/2023 TODAY'S DATE: 10/19/2023 CHIEF COMPLAINT: Chief Complaint Patient presents with Hernia Reason for Consult: Ventral Hernia, Loss of Domain, Nausea, Vomiting, Abdominal Pain HISTORY OF PRESENT ILLNESS: Mel Wall is a 38 y.o. female with significant past medical history of anxiety, bipolar affective disorder, and depression who presents with known large ventral wall hernia with loss of domain. Patient has a significant surgical history including appendectomy, cholecystectomy, prior hernia repair, and were sounds like a hepaticojejunostomy with Janel-en-Y reconstruction. Patient does not recall the details of this. She has followed with surgeons down at [facility] in the past to discuss elective hernia repair, however, she has never met the criteria to proceed with elective repair and she has become frustrated with this and is looked to transfer care elsewhere. Today and over the last few days, she noticed some nausea, vomiting, abdominal pain, concern for possible issues related to her hernia. She is not clinically obstructed and is having bowel function and endorsing flatus. She is voiding without difficulty. She denies any fevers or chills. Her labs and imaging were obtained at our [place] emergency department. I personally reviewed the labs as well as imaging. I compared this imaging to her prior images. CT demonstrates a massive ventral wall hernia with loss of domain. Vitals are stable. She is without tachycardia, she is afebrile. Her white blood cell count is 8.2, hemoglobin 13.2, platelets 247, electrolytes largely within normal limits, liver function enzymes within normal limits. Urinalysis demonstrates turbid urine with moderate bacteria, negative for leukocyte Estrace and nitrites. Given the patient's concern for dehydration, nausea, vomiting, abdominal pain, she was sent from outside ER to [facility] for IV fluids and antiemetics as well as surgical consultation. Patient is aware at the time of my evaluation that her surgical recommendations are not for operative repair from our standpoint and that she needs to be entirely optimized for consideration of advanced abdominal wall reconstruction. She is interested in being established with our abdominal wall reconstruction expert, Dr. Taylor or the [facility]. Past Medical History: Diagnosis Date Anxiety Bipolar affective (HCC) Depression Past Surgical History: Procedure Laterality Date APPENDECTOMY CHOLECYSTECTOMY HERNIA REPAIR OTHER SURGICAL HISTORY JANEL-EN-Y W/GASTROENTEROS TONSILLECTOMY Medications Prior to Admission: Current Facility-Administered Medications: acetaminophen (Tylenol) tablet 650 mg, 650 mg, Oral, q6h PRN OR acetaminophen (Tylenol) suppository 650 mg, 650 mg, Rectal, q6h PRN, AKIRA North CNP [START ON 10/20/2023] busPIRone (Buspar) tablet 30 mg, 30 mg, Oral, BID, Liyah Donis APRN - MAHENDRA [START ON 10/20/2023] FLUoxetine (PROzac) capsule 80 mg, 80 mg, Oral, Daily, AKIRA North CNP HYDROmorphone (Dilaudid) injection 0.5 mg, 0.5 mg, IntraVENous, q4h PRN, Liyah Donis APRN - MAHENDRA morphine injection 4 mg, 4 mg, IntraVENous, q4h PRN, Liyah Donis APRN - MAHENDRA, 4 mg at 10/19/231814 naloxone (Narcan) injection 0.4 mg, 0.4 mg, IntraVENous, PRN, Liyahher Ludivina Donis, CHEMICAL OPERATIONS SPECIALIST - WIRE INSERTER prochlorperazine (Compazine) injection 10 mg, 10 mg, IntraVENous, q6h PRN, Liyah M Donis, CHEMICAL OPERATIONS SPECIALIST - WIRE INSERTER sodium chloride 0.9 % infusion, 5-250 mL/hr, IntraVENous, PRN, Liyah M Donis, CHEMICAL OPERATIONS SPECIALIST - WIRE INSERTER sodium chloride 0.9 % infusion, 100 mL/hr, IntraVENous, Continuous, Liyah Donis, CHEMICAL OPERATIONS SPECIALIST - WIRE INSERTER, Last Rate: 100 mL/hr at 10/19/231818, 100 mL/hr at 10/19/231818 sodium chloride 0.9% (NS) flush 10 mL, 10 mL, IntraVENous, 2 times per day, Liyah Donis, CHEMICAL OPERATIONS SPECIALIST - W[employer] INSERTER sodium chloride 0.9% (NS) flush 10 mL, 10 mL, IntraVENous, PRN, Liyah Donis, CHEMICAL OPERATIONS SPECIALIST - W[employer] INSERTER Allergies: Ketorolac and Ondansetron Social History Socioeconomic History Marital status: Single Tobacco Use Smoking status: Never Smokeless tobacco: Never Substance and Sexual Activity Drug use: Yes Types: Marijuana Social Determinants of Health Transportation Needs: No Transportation Needs (10/19/2023) PRAPARE - Transportation Lack of Transportation (Medical): No Lack of Transportation (Non-Medical): No Housing Stability: Low Risk (10/19/2023) Housing Stability Vital Sign Unable to Pay for Housing in the Last Year: No Number of Places Lived in the Last Year: 1 Unstable Housing in the Last Year: No No family history on file. REVIEW OF SYSTEMS: Review of Systems Constitutional: Negative for chills, fever and unexpected weight change. HENT: Negative for drooling, facial swelling, hearing loss, nosebleeds, rhinorrhea, sneezing and trouble swallowing. Respiratory: Negative for apnea, cough, chest tightness, shortness of breath, wheezing and stridor. Cardiovascular: Negative for chest pain and leg swelling. Gastrointestinal: Positive for abdominal distention, abdominal pain, nausea and vomiting. Negative for constipation and diarrhea. Endocrine: Negative. Genitourinary: Negative for decreased urine volume, difficulty urinating, dysuria, flank pain and urgency. Musculoskeletal: Negative for gait problem, joint swelling and myalgias. Skin: Negative for color change, pallor, rash and wound. Allergic/Immunologic: Negative. Neurological: Negative for dizziness, speech difficulty, weakness, light-headedness and headaches. Hematological: Does not bruise/bleed easily. Psychiatric/Behavioral: Negative for agitation, behavioral problems, confusion and decreased concentration. The patient is not nervous/anxious. PHYSICAL EXAM: Vitals: 10/19/23 1612 BP: 116/71 Pulse: 69 Resp: 18 Temp: 36.5 C (97.7 F) SpO2: 99% No intake/output data recorded. Physical Exam Constitutional: General: She is not in acute distress. Appearance: She is not ill-appearing, toxic-appearing or diaphoretic. Comments: Appears stated age HENT: Head: Normocephalic and atraumatic. Right Ear: External ear normal. Left Ear: External ear normal. Nose: Nose normal. No rhinorrhea. Mouth/Throat: Mouth: Mucous membranes are moist. Eyes: General: No scleral icterus. Right eye: No discharge. Left eye: No discharge. Extraocular Movements: Extraocular movements intact. Conjunctiva/sclera: Conjunctivae normal. Cardiovascular: Rate and Rhythm: Normal rate and regular rhythm. Pulses: Normal pulses. Pulmonary: Effort: Pulmonary effort is normal. No respiratory distress. Breath sounds: No wheezing. Abdominal: General: There is no distension. Palpations: There is no mass. Tenderness: There is no abdominal tenderness. There is no guarding or rebound. Hernia: A hernia (Large reducible but immediately Conchita protruding ventral hernia that is soft, without evidence of incarceration or obstruction, strangulation. No peritoneal signs. Well-healed midline laparotomy) is present. Musculoskeletal: General: No swelling, tenderness, deformity or signs of injury. Normal range of motion. Cervical back: Normal range of motion. No rigidity. Skin: General: Skin is warm and dry. Neurological: General: No focal deficit present. Mental Status: She is alert. Cranial Nerves: No cranial nerve deficit (No gross abnormality). Psychiatric: Mood and Affect: Mood normal. Behavior: Behavior normal. Thought Content: Thought content normal. DATA: CBC: Lab Results Component Value Date WBC 8.2 10/19/2023 RBC 4.30 10/19/2023 HGB 13.2 10/19/2023 HCT 40.0 10/19/2023 MCV 93.0 10/19/2023 MCH 30.7 10/19/2023 MCHC 33.0 10/19/2023 RDW 12.9 10/19/2023 PLT 247 10/19/2023 MPV 8.9 10/19/2023 BMP: Lab Results Component Value Date NA 135 10/19/2023 K 5.0 10/19/2023 CL 106 10/19/2023 CO2 21 (L) 10/19/2023 BUN 10 10/19/2023 CREATININE 0.42 (L) 10/19/2023 CALCIUM 8.8 10/19/2023 GLUCOSE 98 10/19/2023 Hepatic Function Panel: Lab Results Component Value Date ALKPHOS 31 (L) 10/19/2023 ALT 27 10/19/2023 AST 33 10/19/2023 PROT 7.3 10/19/2023 BILITOT 0.7 10/19/2023 BILIDIR 0.0 10/19/2023 PT/INR: No results found for: PROTIME, INR Troponin: No results found for: TROPONINI LIPASE: Lab Results Component Value Date LIPASE 63 10/19/2023 IMAGING: All relevant imaging reviewed by surgery team CT abdomen pelvis wo IV contrast Result Date: 10/19/2023 Patient Name: MEL WALL : 1985 [facility]#: [id number] Exam Date/Time: 10/19/2023 11:42 Procedure: CT ABDOMEN PELVIS WO IV CONTRAST Ordering Provider: LIM NICHOLAS Reason For Exam: Bowel obstruction suspected CT ABDOMEN AND PELVIS Indication: 38-year-old; bowel obstruction Scan Parameters: Multiple axial CT images were obtained of the abdomen and pelvis. Coronal and sagittal reconstructions were reviewed as well. ALARA protocol. Dose reduction was employed with automated exposure control. Contrast: No IV and no oral contrast Comparison: 09/13/2023 FINDINGS: The lung bases are clear. The heart is not enlarged. The aorta contour is within normal limits. The osseous structures are intact. The gallbladder is surgically absent. The liver, pancreas, spleen, and adrenal glands are within normal limits. There is no hydronephrosis. Bilateral renal cysts are redemonstrated. The bladder contour is normal. The uterus is anteverted. Clips are present at the level of the right and left fallopian tubes. There is a large ventral hernia containing the transverse colon, ascending colon, cecum, and multiple loops of decompressed small bowel. There are postsurgical changes of bowel loops noted within this hernia. The appendix is not clearly identified. There are postsurgical changes of the duodenum with a diverticulum present. The hernia neck measures approximately 12 cm on lateral imaging. There is partial intussusception of the fatty mesentery within a loop of jejunum wall in the left upper quadrant for instance coronal image 47 and axial image 68. There are narrowing of small bowel loops entering the hernia. Large ventral abdominal wall hernia containing multiple loops of small bowel and large bowel with changes of possible early obstruction. There is partial intussusception of the fatty mesentery along the wall of a loop of jejunum in the left upper quadrant. Lack of GI contrast limits overall evaluation of bowel loops. Surgical consultation is recommended. Report Dictated on Electronically Signed By: Michelle Velazquez MD Electronically Signed Date/Time: 10/19/2023 11:56 AM EST ASSESSMENT AND PLAN: This is a 38 y.o. female with longstanding recurrent incisional hernia with loss of domain of the abdominal wall -No surgical intervention indicated. -Abdomen is soft with no peritoneal signs present and she is not clinically obstructed at all. Imaging has been reviewed and compared to prior imaging and personally interpreted. -I recommended to patient that she consider evaluation by advanced reconstruction experts, here at [facility] we have Dr. Taylor who does abdominal wall reconstruction but at the [facility] there are additional resources available and the patient is interested in further evaluation with any. She does not wish to go back to [facility]. -Okay for clear liquid diet, advance as tolerated, antiemetic control ongoing. -Please call if questions or concerns arise -Medical management per primary team. Moderate MDM. I spent 60 minutes total on the day of the visit obtaining history, reviewing imaging and laboratory results, performing a physical exam and providing patient education and counseling. Disclaimers: INFORMED CONSENT: The nature and purpose of the proposed treatment and/or procedure have been discussed. The risks and benefits of the proposed treatment or procedures have been reviewed. Alternatives have been reviewed in addition to the risks and benefits of not receiving treatments or undergoing procedures. Pursuant to this discussion, the patient agrees to undergo the proposed treatment or procedure. Captured images seen in this note are not a substitute for a comprehensive interpretation of the entire data set as reflected by the interpreting physician with regard to radiology, echocardiography, and other diagnostic images. This note may have been dictated using [employer] Medical Practice Edition 2.6 and/or [employer]ix[employer] Voice Recognition Feature. The document was proofread; however, unrecognized voice recognition wood stock blank handler errors may be present. Ralph Greenfield MD 10/19/2023 6:22 PM [facility] 10-19-2023 Consult note Associated Order (s): IP CONSULT TO GENERAL SURGERY Images from the original note were not included. Department of Surgery [facility] Ralph Greenfield MD, MPH Consult Note PATIENT NAME: Mel Wall : 1985 ATTENDING PHYSICIAN: Titi Dang MD ADMIT DATE: 10/19/2023 TODAY'S DATE: 10/19/2023 CHIEF COMPLAINT: Chief Complaint Patient presents with Hernia Reason for Consult: Ventral Hernia, Loss of Domain, Nausea, Vomiting, Abdominal Pain HISTORY OF PRESENT ILLNESS: Mel Wall is a 38 y.o. female with significant past medical history of anxiety, bipolar affective disorder, and depression who presents with known large ventral wall hernia with loss of domain. Patient has a significant surgical history including appendectomy, cholecystectomy, prior hernia repair, and were sounds like a hepaticojejunostomy with Janel-en-Y reconstruction. Patient does not recall the details of this. She has followed with surgeons down at [facility] in the past to discuss elective hernia repair, however, she has never met the criteria to proceed with elective repair and she has become frustrated with this and is looked to transfer care elsewhere. Today and over the last few days, she noticed some nausea, vomiting, abdominal pain, concern for possible issues related to her hernia. She is not clinically obstructed and is having bowel function and endorsing flatus. She is voiding without difficulty. She denies any fevers or chills. Her labs and imaging were obtained at our [place] emergency department. I personally reviewed the labs as well as imaging. I compared this imaging to her prior images. CT demonstrates a massive ventral wall hernia with loss of domain. Vitals are stable. She is without tachycardia, she is afebrile. Her white blood cell count is 8.2, hemoglobin 13.2, platelets 247, electrolytes largely within normal limits, liver function enzymes within normal limits. Urinalysis demonstrates turbid urine with moderate bacteria, negative for leukocyte Estrace and nitrites. Given the patient's concern for dehydration, nausea, vomiting, abdominal pain, she was sent from outside ER to [facility] for IV fluids and antiemetics as well as surgical consultation. Patient is aware at the time of my evaluation that her surgical recommendations are not for operative repair from our standpoint and that she needs to be entirely optimized for consideration of advanced abdominal wall reconstruction. She is interested in being established with our abdominal wall reconstruction expert, Dr. Taylor or the [facility]. Past Medical History: Diagnosis Date Anxiety Bipolar affective (HCC) Depression Past Surgical History: Procedure Laterality Date APPENDECTOMY CHOLECYSTECTOMY HERNIA REPAIR OTHER SURGICAL HISTORY JANEL-EN-Y W/GASTROENTEROS TONSILLECTOMY Medications Prior to Admission: Current Facility-Administered Medications: acetaminophen (Tylenol) tablet 650 mg, 650 mg, Oral, q6h PRN OR acetaminophen (Tylenol) suppository 650 mg, 650 mg, Rectal, q6h PRN, AKIRA North CNP [START ON 10/20/2023] busPIRone (Buspar) tablet 30 mg, 30 mg, Oral, BID, AKIRA North CNP [START ON 10/20/2023] FLUoxetine (PROzac) capsule 80 mg, 80 mg, Oral, Daily, AKIRA North CNP HYDROmorphone (Dilaudid) injection 0.5 mg, 0.5 mg, IntraVENous, q4h PRN, AKIRA North CNP morphine injection 4 mg, 4 mg, IntraVENous, q4h PRN, AKIRA North CNP, 4 mg at 10/19/231814 naloxone (Narcan) injection 0.4 mg, 0.4 mg, IntraVENous, PRN, Liyah Donis APRN - MAHENDRA prochlorperazine (Compazine) injection 10 mg, 10 mg, IntraVENous, q6h PRN, Liyah Donis APRN - MAHENDRA sodium chloride 0.9 % infusion, 5-250 mL/hr, IntraVENous, PRN, Liyah Donis, CHEMICAL OPERATIONS SPECIALIST - WIRE INSERTER sodium chloride 0.9 % infusion, 100 mL/hr, IntraVENous, Continuous, Liyah Donis, CHEMICAL OPERATIONS SPECIALIST - WIRE INSERTER, Last Rate: 100 mL/hr at 10/19/231818, 100 mL/hr at 10/19/231818 sodium chloride 0.9% (NS) flush 10 mL, 10 mL, IntraVENous, 2 times per day, Liyah Donis, CHEMICAL OPERATIONS SPECIALIST - WIRE INSERTER sodium chloride 0.9% (NS) flush 10 mL, 10 mL, IntraVENous, PRN, Liyah Donis, CHEMICAL OPERATIONS SPECIALIST - W[employer] INSERTER Allergies: Ketorolac and Ondansetron Social History Socioeconomic History Marital status: Single Tobacco Use Smoking status: Never Smokeless tobacco: Never Substance and Sexual Activity Drug use: Yes Types: Marijuana Social Determinants of Health Transportation Needs: No Transportation Needs (10/19/2023) PRAPARE - Transportation Lack of Transportation (Medical): No Lack of Transportation (Non-Medical): No Housing Stability: Low Risk (10/19/2023) Housing Stability Vital Sign Unable to Pay for Housing in the Last Year: No Number of Places Lived in the Last Year: 1 Unstable Housing in the Last Year: No No family history on file. REVIEW OF SYSTEMS: Review of Systems Constitutional: Negative for chills, fever and unexpected weight change. HENT: Negative for drooling, facial swelling, hearing loss, nosebleeds, rhinorrhea, sneezing and trouble swallowing. Respiratory: Negative for apnea, cough, chest tightness, shortness of breath, wheezing and stridor. Cardiovascular: Negative for chest pain and leg swelling. Gastrointestinal: Positive for abdominal distention, abdominal pain, nausea and vomiting. Negative for constipation and diarrhea. Endocrine: Negative. Genitourinary: Negative for decreased urine volume, difficulty urinating, dysuria, flank pain and urgency. Musculoskeletal: Negative for gait problem, joint swelling and myalgias. Skin: Negative for color change, pallor, rash and wound. Allergic/Immunologic: Negative. Neurological: Negative for dizziness, speech difficulty, weakness, light-headedness and headaches. Hematological: Does not bruise/bleed easily. Psychiatric/Behavioral: Negative for agitation, behavioral problems, confusion and decreased concentration. The patient is not nervous/anxious. PHYSICAL EXAM: Vitals: 10/19/23 1612 BP: 116/71 Pulse: 69 Resp: 18 Temp: 36.5 C (97.7 F) SpO2: 99% No intake/output data recorded. Physical Exam Constitutional: General: She is not in acute distress. Appearance: She is not ill-appearing, toxic-appearing or diaphoretic. Comments: Appears stated age HENT: Head: Normocephalic and atraumatic. Right Ear: External ear normal. Left Ear: External ear normal. Nose: Nose normal. No rhinorrhea. Mouth/Throat: Mouth: Mucous membranes are moist. Eyes: General: No scleral icterus. Right eye: No discharge. Left eye: No discharge. Extraocular Movements: Extraocular movements intact. Conjunctiva/sclera: Conjunctivae normal. Cardiovascular: Rate and Rhythm: Normal rate and regular rhythm. Pulses: Normal pulses. Pulmonary: Effort: Pulmonary effort is normal. No respiratory distress. Breath sounds: No wheezing. Abdominal: General: There is no distension. Palpations: There is no mass. Tenderness: There is no abdominal tenderness. There is no guarding or rebound. Hernia: A hernia (Large reducible but immediately Conchita protruding ventral hernia that is soft, without evidence of incarceration or obstruction, strangulation. No peritoneal signs. Well-healed midline laparotomy) is present. Musculoskeletal: General: No swelling, tenderness, deformity or signs of injury. Normal range of motion. Cervical back: Normal range of motion. No rigidity. Skin: General: Skin is warm and dry. Neurological: General: No focal deficit present. Mental Status: She is alert. Cranial Nerves: No cranial nerve deficit (No gross abnormality). Psychiatric: Mood and Affect: Mood normal. Behavior: Behavior normal. Thought Content: Thought content normal. DATA: CBC: Lab Results Component Value Date WBC 8.2 10/19/2023 RBC 4.30 10/19/2023 HGB 13.2 10/19/2023 HCT 40.0 10/19/2023 MCV 93.0 10/19/2023 MCH 30.7 10/19/2023 MCHC 33.0 10/19/2023 RDW 12.9 10/19/2023 PLT 247 10/19/2023 MPV 8.9 10/19/2023 BMP: Lab Results Component Value Date NA 135 10/19/2023 K 5.0 10/19/2023 CL 106 10/19/2023 CO2 21 (L) 10/19/2023 BUN 10 10/19/2023 CREATININE 0.42 (L) 10/19/2023 CALCIUM 8.8 10/19/2023 GLUCOSE 98 10/19/2023 Hepatic Function Panel: Lab Results Component Value Date ALKPHOS 31 (L) 10/19/2023 ALT 27 10/19/2023 AST 33 10/19/2023 PROT 7.3 10/19/2023 BILITOT 0.7 10/19/2023 BILIDIR 0.0 10/19/2023 PT/INR: No results found for: PROTIME, INR Troponin: No results found for: TROPONINI LIPASE: Lab Results Component Value Date LIPASE 63 10/19/2023 IMAGING: All relevant imaging reviewed by surgery team CT abdomen pelvis wo IV contrast Result Date: 10/19/2023 [facility] 1985 [id number] Exam Date/Time: 10/19/2023 11:42 Procedure: CT ABDOMEN PELVIS WO IV CONTRAST Ordering Provider: LIM NICHOLAS Reason For Exam: Bowel obstruction suspected CT ABDOMEN AND PELVIS Indication: 38-year-old; bowel obstruction Scan Parameters: Multiple axial CT images were obtained of the abdomen and pelvis. Coronal and sagittal reconstructions were reviewed as well. ALARA protocol. Dose reduction was employed with automated exposure control. Contrast: No IV and no oral contrast Comparison: 09/13/2023 FINDINGS: The lung bases are clear. The heart is not enlarged. The aorta contour is within normal limits. The osseous structures are intact. The gallbladder is surgically absent. The liver, pancreas, spleen, and adrenal glands are within normal limits. There is no hydronephrosis. Bilateral renal cysts are redemonstrated. The bladder contour is normal. The uterus is anteverted. Clips are present at the level of the right and left fallopian tubes. There is a large ventral hernia containing the transverse colon, ascending colon, cecum, and multiple loops of decompressed small bowel. There are postsurgical changes of bowel loops noted within this hernia. The appendix is not clearly identified. There are postsurgical changes of the duodenum with a diverticulum present. The hernia neck measures approximately 12 cm on lateral imaging. There is partial intussusception of the fatty mesentery within a loop of jejunum wall in the left upper quadrant for instance coronal image 47 and axial image 68. There are narrowing of small bowel loops entering the hernia. Large ventral abdominal wall hernia containing multiple loops of small bowel and large bowel with changes of possible early obstruction. There is partial intussusception of the fatty mesentery along the wall of a loop of jejunum in the left upper quadrant. Lack of GI contrast limits overall evaluation of bowel loops. Surgical consultation is recommended. Report Dictated on Electronically Signed By: Michelle Velazquez MD Electronically Signed Date/Time: 10/19/2023 11:56 AM EST ASSESSMENT AND PLAN: This is a 38 y.o. female with longstanding recurrent incisional hernia with loss of domain of the abdominal wall -No surgical intervention indicated. -Abdomen is soft with no peritoneal signs present and she is not clinically obstructed at all. Imaging has been reviewed and compared to prior imaging and personally interpreted. -I recommended to patient that she consider evaluation by advanced reconstruction experts, here at [facility] we have Dr. Taylor who does abdominal wall reconstruction but at the [facility] there are additional resources available and the patient is interested in further evaluation with any. She does not wish to go back to [facility]. -Okay for clear liquid diet, advance as tolerated, antiemetic control ongoing. -Please call if questions or concerns arise -Medical management per primary team. Moderate MDM. I spent 60 minutes total on the day of the visit obtaining history, reviewing imaging and laboratory results, performing a physical exam and providing patient education and counseling. Disclaimers: INFORMED CONSENT: The nature and purpose of the proposed treatment and/or procedure have been discussed. The risks and benefits of the proposed treatment or procedures have been reviewed. Alternatives have been reviewed in addition to the risks and benefits of not receiving treatments or undergoing procedures. Pursuant to this discussion, the patient agrees to undergo the proposed treatment or procedure. Captured images seen in this note are not a substitute for a comprehensive interpretation of the entire data set as reflected by the interpreting physician with regard to radiology, echocardiography, and other diagnostic images. This note may have been dictated using [employer] / [employer] Practice Edition 2.6 and/or [employer]by Voice Recognition Feature. The document was proofread; however, unrecognized voice recognition wood stock blank handler errors may be present. Ralph Greenfield MD 10/19/2023 6:22 PM documented in this encounter [facility] 10-19-2023 Note HNO ID: [id number] Author: SALLY GONZALEZ APRN.WIRE INSERTER Service: ? Author Type: Nurse Practitioner Type: Progress Notes Filed: 10/19/2023 14:23 Note Text: Patient did not log in for her virtual visit with the provider today. She did not answer her phone when she was contacted prior to the appointment time. [facility] 10-19-2023 Emergency department Note Pt reports having increased pain after CT. Physician aware, awaiting further orders. Doris Rdz RN 10/19/23 1151 [facility] 10-19-2023 Emergency department Note Pt requests additional medication for pain . Physician aware and will medicate per orders. Doris Rdz RN 10/19/23 1409 [facility] 10-19-2023 Emergency department Note Pt ambulatory to bathroom with steady gait. Doris Rdz RN 10/19/23 1526 [facility] 10-19-2023 Emergency department Note Time of transfer 1540 Doris Rdz RN 10/19/23 1539 [facility] 10-19-2023 Emergency department Note EMERGENCY DEPARTMENT ENCOUNTER Pt Name: Mel Wall Birthdate 1985 Date of evaluation: 10/19/2023 ED Provider: Heath Lim MD CHIEF COMPLAINT Chief Complaint Patient presents with Hernia History from patient HISTORY OF PRESENT ILLNESS (Location/Symptom, Timing/Onset, Context/Setting, Quality, Duration, Modifying Factors, Severity) Note limiting factors. I wore appropriate PPE for the entirety of this encounter. HPI Mel Wall is a 38 y.o. who presents to the emergency department complaining of hernia pain. Patient has a known history of ventral hernia. She has been followed at [facility]. She has had symptoms since she had a Janel-en-Y procedure many years ago. She states she was hospitalized September 2023 for abdominal pain and partial obstruction. She states that starting 4 days ago she started having nausea and pain which is consistent with previous obstructions. She is now vomiting whole food and unable to keep anything down so she came to the emergency department. She states she is transferring care to [facility] and would like to have her hernia eventually repaired. No history of ulcers hepatic illness pancreatitis or appendicitis. No urinary symptoms. No vaginal discharge. No fever or injury. Nursing Notes were reviewed. Limitations to history: none Outside historians: None REVIEW OF SYSTEMS Review of Systems Constitutional: Negative for fever. Eyes: Negative for visual disturbance. Respiratory: Negative for shortness of breath. Cardiovascular: Negative for chest pain. Gastrointestinal: Positive for abdominal distention, abdominal pain, nausea and vomiting. Negative for anal bleeding, blood in stool, constipation, diarrhea and rectal pain. Genitourinary: Negative for difficulty urinating. Musculoskeletal: Negative for back pain and neck pain. Skin: Negative for rash. Neurological: Negative for headaches. Pertinent positives and negatives as per HPI PAST MEDICAL HISTORY Past Medical History: Diagnosis Date Anxiety Bipolar affective (HCC) Depression SURGICAL HISTORY Past Surgical History: Procedure Laterality Date APPENDECTOMY CHOLECYSTECTOMY HERNIA REPAIR OTHER SURGICAL HISTORY JANEL-EN-Y W/GASTROENTEROS TONSILLECTOMY CURRENT MEDICATIONS Previous Medications BUSPIRONE (BUSPAR) 30 MG TABLET Take 30 mg by mouth in the morning and 30 mg in the evening. FLUOXETINE (PROZAC) 40 MG CAPSULE Take 80 mg by mouth in the morning. GUANFACINE (INTUNIV) 1 MG 24 HR TABLET Take 1 tablet by mouth Nightly. ALLERGIES Ketorolac and Ondansetron FAMILY HISTORY No family history on file. SOCIAL HISTORY Social History Socioeconomic History Marital status: Single Tobacco Use Smoking status: Never Smokeless tobacco: Never Substance and Sexual Activity Drug use: Yes Types: Marijuana SCREENINGS PHYSICAL EXAM ED Triage Vitals Temp Pulse Resp BP -- -- -- -- SpO2 Temp src Heart Rate Source Patient Position -- -- -- -- BP Location FiO2 (%) -- -- Physical Exam Constitutional: Appearance: Normal appearance. HENT: Head: Normocephalic and atraumatic. Eyes: Extraocular Movements: Extraocular movements intact. Pupils: Pupils are equal, round, and reactive to light. Cardiovascular: Rate and Rhythm: Normal rate and regular rhythm. Heart sounds: Normal heart sounds. Pulmonary: Effort: Pulmonary effort is normal. Breath sounds: Normal breath sounds. No wheezing or rhonchi. Musculoskeletal: General: Normal range of motion. Cervical back: Normal range of motion. No rigidity or tenderness. Skin: General: Skin is warm and dry. Capillary Refill: Capillary refill takes less than 2 seconds. Neurological: General: No focal deficit present. Mental Status: She is alert. Gait: Gait normal. Not febrile not toxic no distress Abdomen -soft, 8 x 10 cm ventral hernia which is not tender not discolored good bowel sounds, no peritoneal signs, no mass DIAGNOSTIC RESULTS RADIOLOGY (Per Emergency Physician): Abdominal pelvis CT - large hernia, possible obstruction Interpretation per the Radiologist below, if available at the time of this note: CT abdomen pelvis wo IV contrast Final Result Large ventral abdominal wall hernia containing multiple loops of small bowel and large bowel with changes of possible early obstruction. There is partial intussusception of the fatty mesentery along the wall of a loop of jejunum in the left upper quadrant. Lack of GI contrast limits overall evaluation of bowel loops. Surgical consultation is recommended. Report Dictated on Electronically Signed By: Michelle Velazquez MD Electronically Signed Date/Time: 10/19/2023 11:56 AM EST LABS: Labs Reviewed BASIC METABOLIC PANEL - Abnormal Result Value SODIUM 135 POTASSIUM 5.0 CHLORIDE 106 CARBON DIOXIDE 21 (*) UREA NITROGEN 10 CREATININE 0.42 (*) GLUCOSE 98 CALCIUM 8.8 ANION GAP 8 eGFR >90.0 HEPATIC FUNCTION PANEL - Abnormal BILIRUBIN, TOTAL 0.7 BILIRUBIN, DIRECT 0.0 ALKALINE PHOSPHATASE 31 (*) AST (SGOT) 33 ALT 27 ALBUMIN 4.3 TOTAL PROTEIN 7.3 CBC WITH AUTO DIFFERENTIAL - Abnormal Auto WBC 8.2 RBC 4.30 Hemoglobin 13.2 Hematocrit 40.0 MCV 93.0 MCH 30.7 MCHC 33.0 RDW 12.9 Platelets 247 MPV 8.9 Neutrophils Relative 75.6 Lymphocytes Relative 17.5 (*) Monocytes Relative 4.0 Eosinophils Relative 2.1 Basophils Relative 0.2 Immature Grans % 0.6 (*) Neutrophils Absolute 6.2 Lymphocytes Absolute 1.4 Monocytes Absolute 0.3 Eosinophils Absolute 0.2 Basophils Absolute 0.0 Immature Grans Absolute 0.1 (*) COMPLETE URINALYSIS - Abnormal Color, Urine Colorless Clarity, Urine Turbid (*) pH, Urine 7.0 Leukocytes, Urine Negative Nitrite, Urine Negative Protein, Urine Negative Glucose, Urine Normal Bilirubin, Urine Negative Ketones, Urine Negative Urobilinogen, Urine Normal Blood, Urine Negative Volume, Urine 12 mL RBC, Urine Negative WBC, Urine 0-2 Squamous Epithelial, Urine 11-25 (*) Bacteria, Urine Moderate (*) SPECIFIC GRAVITY OF URINE (NUMERIC) 1.006 LIPASE - Normal LIPASE 63 COMPLETE URINALYSIS WITH REFLEX TO CULTURE Narrative: The following orders were created for panel order Urinalysis complete with reflex to Culture. Procedure Abnormality Status --------- ------ Complete Urinalysis[[id number]] Abnormal Final result Please view results for these tests on the individual orders. HCG QUALITATIVE URINE HCG,URINE QUAL Negative Narrative: is the most common reason for HCG in urine, although choriocarcinoma, hydatidiform mole, and certain nontrophoblastic malignancies also result in detectable urinary HCG levels. Sensitivity = 20mIU/mL. All other labs were within normal range or not returned as of this dictation. EMERGENCY DEPARTMENT COURSE and DIFFERENTIAL DIAGNOSIS/MDM: Vitals: Vitals: 10/19/23 1026 10/19/23 1207 10/19/23 1407 BP: 134/86 121/70 130/73 BP Location: Right arm Right arm Right arm Patient Position: Lying Lying Lying Pulse: 88 76 70 Resp: 16 16 16 Temp: 36.7 C (98 F) TempSrc: Oral SpO2: 98% 100% 98% Weight: 107 kg (235 lb) Medications sodium chloride 0.9% (NS) flush 10 mL (has no administration in time range) sodium chloride 0.9% (NS) flush 10 mL (has no administration in time range) sodium chloride 0.9 % infusion (has no administration in time range) acetaminophen (Tylenol) tablet 650 mg (has no administration in time range) Or acetaminophen (Tylenol) suppository 650 mg (has no administration in time range) sodium chloride 0.9 % infusion (has no administration in time range) HYDROmorphone (Dilaudid) injection 0.5 mg (has no administration in time range) naloxone (Narcan) injection 0.4 mg (has no administration in time range) morphine injection 4 mg (has no administration in time range) prochlorperazine (Compazine) injection 10 mg (has no administration in time range) promethazine (Phenergan) injection 6.25 mg (6.25 mg IntraMUSCular Given 10/19/23 1057) sodium chloride 0.9 % bolus 1,000 mL (1,000 mL IntraVENous New Bag 10/19/23 1054) HYDROmorphone (Dilaudid) injection 1 mg (1 mg IntraVENous Given 10/19/23 1058) HYDROmorphone (Dilaudid) injection 1 mg (1 mg IntraVENous Given 10/19/23 1208) HYDROmorphone (Dilaudid) injection 1 mg (1 mg IntraVENous Given 10/19/23 1410) Medical Decision Making and ED Course The patient presented with a chief complaint of abdominal pain and tension. The differential diagnosis associated with this patient's presentation includes ventral hernia, bowel obstruction, appendicitis, pancreatitis, hepatitis, pyelonephritis, . Our workup consisted of ordering/reviewing Laboratory studies and abdominal CT. Laboratory studies show no clinically significant electrolyte abnormality no renal sufficiency no hyperglycemia no clinically significant hepatic inflammation no pancreatitis no anemia. There is no evidence of urinary tract infection. She is not . CT imaging shows partial small bowel obstruction. Patient has difficulty keep anything down and would benefit from hospitalization. She agrees. Discussed management with the general surgery and hospitalist team. Review of prior external records: Inpatient record from September 13, 2023 through September 15, 2023 for ventral hernia with obstruction with out gangrene. Surgery consult note by Dr. Barroso advising outpatient follow-up. Independent test interpretation by me: Abdominal CT Discussions of test interpretation with other clinicians: General surgery and hospitalist Chronic conditions impacting care: Ventral hernia and multiple abdominal surgical procedures makes her more susceptible to obstruction. Social determinants of health affecting care: Transferring care from an outside facility to here, currently between surgeons. ED Medications managed: Symptoms improved with ED treatment. Discussion of management with other physicians: General surgery and hospitalist Consideration of hospitalization or de-escalation of care: Meets criteria for hospitalization because she is symptomatic from her hernia and would benefit from fluids analgesics antiemetics and care coordination with the surgery service. REVAL: 11:58 AM All data now available and reviewed with patient. Surgery paged. Requesting more pain medicine. Ordered. 12:30 PM Spoke to general surgery 12:35 PM Accepted by hospitalist. Transport called 3:33 PM Transport here. CONSULTS: Surgery Hospitalist FINAL IMPRESSION 1. Ventral hernia with obstruction Depression Cholecystectomy Appendectomy DISPOSITION Observation 10/19/2023 12:50:02 PM PATIENT REFERRED TO: No follow-up provider specified. DISCHARGE MEDICATIONS: New Prescriptions No medications on file (Comment: Please note this report has been produced using speech recognition software and may contain errors related to that system including errors in grammar, punctuation, and spelling, as well as words and phrases that may be inappropriate. If there are any questions or concerns please feel free to contact the dictating provider for clarification.) Heath Lim MD (electronically signed) Emergency Medicine Provider Heath Lim MD 10/19/23 1533 Pt ambulatory to room 2 with c/o increased pain of large abdominal hernia. Pt states she has had the hernia for 2 years and has plan of care with [facility]. This episode of pain increased along with nausea and vomiting on Tuesday. Pt reports feeling fatigued and tired. Pt reports having increased pain after CT. Physician aware, awaiting further orders. Doris Rdz RN 10/19/23 1154 Pt requests additional medication for pain . Physician aware and will medicate per orders. Doris Rdz RN 10/19/23 2432 Pt ambulatory to bathroom with steady gait. Doris Rdz RN 10/19/23 1526 Time of transfer 1540 Doris Rdz RN 10/19/23 1539 documented in this encounter [facility] 10-19-2023 Emergency department Triage note Pt ambulatory to room 2 with c/o increased pain of large abdominal hernia. Pt states she has had the hernia for 2 years and has plan of care with [facility]. This episode of pain increased along with nausea and vomiting on Tuesday. Pt reports feeling fatigued and tired. [facility] 10-19-2023 Physician Emergency department Note EMERGENCY DEPARTMENT ENCOUNTER Pt Name: Mel Wall Birthdate 1985 Date of evaluation: 10/19/2023 ED Provider: Heath Lim MD CHIEF COMPLAINT Chief Complaint Patient presents with Hernia History from patient HISTORY OF PRESENT ILLNESS (Location/Symptom, Timing/Onset, Context/Setting, Quality, Duration, Modifying Factors, Severity) Note limiting factors. I wore appropriate PPE for the entirety of this encounter. HPI Mel Wall is a 38 y.o. who presents to the emergency department complaining of hernia pain. Patient has a known history of ventral hernia. She has been followed at [facility]. She has had symptoms since she had a Janel-en-Y procedure many years ago. She states she was hospitalized September 2023 for abdominal pain and partial obstruction. She states that starting 4 days ago she started having nausea and pain which is consistent with previous obstructions. She is now vomiting whole food and unable to keep anything down so she came to the emergency department. She states she is transferring care to [facility] and would like to have her hernia eventually repaired. No history of ulcers hepatic illness pancreatitis or appendicitis. No urinary symptoms. No vaginal discharge. No fever or injury. Nursing Notes were reviewed. Limitations to history: none Outside historians: None REVIEW OF SYSTEMS Review of Systems Constitutional: Negative for fever. Eyes: Negative for visual disturbance. Respiratory: Negative for shortness of breath. Cardiovascular: Negative for chest pain. Gastrointestinal: Positive for abdominal distention, abdominal pain, nausea and vomiting. Negative for anal bleeding, blood in stool, constipation, diarrhea and rectal pain. Genitourinary: Negative for difficulty urinating. Musculoskeletal: Negative for back pain and neck pain. Skin: Negative for rash. Neurological: Negative for headaches. Pertinent positives and negatives as per HPI PAST MEDICAL HISTORY Past Medical History: Diagnosis Date Anxiety Bipolar affective (HCC) Depression SURGICAL HISTORY Past Surgical History: Procedure Laterality Date APPENDECTOMY CHOLECYSTECTOMY HERNIA REPAIR OTHER SURGICAL HISTORY JANEL-EN-Y W/GASTROENTEROS TONSILLECTOMY CURRENT MEDICATIONS Previous Medications BUSPIRONE (BUSPAR) 30 MG TABLET Take 30 mg by mouth in the morning and 30 mg in the evening. FLUOXETINE (PROZAC) 40 MG CAPSULE Take 80 mg by mouth in the morning. GUANFACINE (INTUNIV) 1 MG 24 HR TABLET Take 1 tablet by mouth Nightly. ALLERGIES Ketorolac and Ondansetron FAMILY HISTORY No family history on file. SOCIAL HISTORY Social History Socioeconomic History Marital status: Single Tobacco Use Smoking status: Never Smokeless tobacco: Never Substance and Sexual Activity Drug use: Yes Types: Marijuana SCREENINGS PHYSICAL EXAM ED Triage Vitals Temp Pulse Resp BP -- -- -- -- SpO2 Temp src Heart Rate Source Patient Position -- -- -- -- BP Location FiO2 (%) -- -- Physical Exam Constitutional: Appearance: Normal appearance. HENT: Head: Normocephalic and atraumatic. Eyes: Extraocular Movements: Extraocular movements intact. Pupils: Pupils are equal, round, and reactive to light. Cardiovascular: Rate and Rhythm: Normal rate and regular rhythm. Heart sounds: Normal heart sounds. Pulmonary: Effort: Pulmonary effort is normal. Breath sounds: Normal breath sounds. No wheezing or rhonchi. Musculoskeletal: General: Normal range of motion. Cervical back: Normal range of motion. No rigidity or tenderness. Skin: General: Skin is warm and dry. Capillary Refill: Capillary refill takes less than 2 seconds. Neurological: General: No focal deficit present. Mental Status: She is alert. Gait: Gait normal. Not febrile not toxic no distress Abdomen -soft, 8 x 10 cm ventral hernia which is not tender not discolored good bowel sounds, no peritoneal signs, no mass DIAGNOSTIC RESULTS RADIOLOGY (Per Emergency Physician): Abdominal pelvis CT - large hernia, possible obstruction Interpretation per the Radiologist below, if available at the time of this note: CT abdomen pelvis wo IV contrast Final Result Large ventral abdominal wall hernia containing multiple loops of small bowel and large bowel with changes of possible early obstruction. There is partial intussusception of the fatty mesentery along the wall of a loop of jejunum in the left upper quadrant. Lack of GI contrast limits overall evaluation of bowel loops. Surgical consultation is recommended. Report Dictated on Electronically Signed By: Michelle Velazquez MD Electronically Signed Date/Time: 10/19/2023 11:56 AM EST LABS: Labs Reviewed BASIC METABOLIC PANEL - Abnormal Result Value SODIUM 135 POTASSIUM 5.0 CHLORIDE 106 CARBON DIOXIDE 21 (*) UREA NITROGEN 10 CREATININE 0.42 (*) GLUCOSE 98 CALCIUM 8.8 ANION GAP 8 eGFR >90.0 HEPATIC FUNCTION PANEL - Abnormal BILIRUBIN, TOTAL 0.7 BILIRUBIN, DIRECT 0.0 ALKALINE PHOSPHATASE 31 (*) AST (SGOT) 33 ALT 27 ALBUMIN 4.3 TOTAL PROTEIN 7.3 CBC WITH AUTO DIFFERENTIAL - Abnormal Auto WBC 8.2 RBC 4.30 Hemoglobin 13.2 Hematocrit 40.0 MCV 93.0 MCH 30.7 MCHC 33.0 RDW 12.9 Platelets 247 MPV 8.9 Neutrophils Relative 75.6 Lymphocytes Relative 17.5 (*) Monocytes Relative 4.0 Eosinophils Relative 2.1 Basophils Relative 0.2 Immature Grans % 0.6 (*) Neutrophils Absolute 6.2 Lymphocytes Absolute 1.4 Monocytes Absolute 0.3 Eosinophils Absolute 0.2 Basophils Absolute 0.0 Immature Grans Absolute 0.1 (*) COMPLETE URINALYSIS - Abnormal Color, Urine Colorless Clarity, Urine Turbid (*) pH, Urine 7.0 Leukocytes, Urine Negative Nitrite, Urine Negative Protein, Urine Negative Glucose, Urine Normal Bilirubin, Urine Negative Ketones, Urine Negative Urobilinogen, Urine Normal Blood, Urine Negative Volume, Urine 12 mL RBC, Urine Negative WBC, Urine 0-2 Squamous Epithelial, Urine 11-25 (*) Bacteria, Urine Moderate (*) SPECIFIC GRAVITY OF URINE (NUMERIC) 1.006 LIPASE - Normal LIPASE 63 COMPLETE URINALYSIS WITH REFLEX TO CULTURE Narrative: The following orders were created for panel order Urinalysis complete with reflex to Culture. Procedure Abnormality Status --------- ------ Complete Urinalysis[[id number]] Abnormal Final result Please view results for these tests on the individual orders. HCG QUALITATIVE URINE HCG,URINE QUAL Negative Narrative: is the most common reason for HCG in urine, although choriocarcinoma, hydatidiform mole, and certain nontrophoblastic malignancies also result in detectable urinary HCG levels. Sensitivity = 20mIU/mL. All other labs were within normal range or not returned as of this dictation. EMERGENCY DEPARTMENT COURSE and DIFFERENTIAL DIAGNOSIS/MDM: Vitals: Vitals: 10/19/23 1026 10/19/23 1207 10/19/23 1407 BP: 134/86 121/70 130/73 BP Location: Right arm Right arm Right arm Patient Position: Lying Lying Lying Pulse: 88 76 70 Resp: 16 16 16 Temp: 36.7 C (98 F) TempSrc: Oral SpO2: 98% 100% 98% Weight: 107 kg (235 lb) Medications sodium chloride 0.9% (NS) flush 10 mL (has no administration in time range) sodium chloride 0.9% (NS) flush 10 mL (has no administration in time range) sodium chloride 0.9 % infusion (has no administration in time range) acetaminophen (Tylenol) tablet 650 mg (has no administration in time range) Or acetaminophen (Tylenol) suppository 650 mg (has no administration in time range) sodium chloride 0.9 % infusion (has no administration in time range) HYDROmorphone (Dilaudid) injection 0.5 mg (has no administration in time range) naloxone (Narcan) injection 0.4 mg (has no administration in time range) morphine injection 4 mg (has no administration in time range) prochlorperazine (Compazine) injection 10 mg (has no administration in time range) promethazine (Phenergan) injection 6.25 mg (6.25 mg IntraMUSCular Given 10/19/23 1057) sodium chloride 0.9 % bolus 1,000 mL (1,000 mL IntraVENous New Bag 10/19/23 1054) HYDROmorphone (Dilaudid) injection 1 mg (1 mg IntraVENous Given 10/19/23 1058) HYDROmorphone (Dilaudid) injection 1 mg (1 mg IntraVENous Given 10/19/23 1208) HYDROmorphone (Dilaudid) injection 1 mg (1 mg IntraVENous Given 10/19/23 1410) Medical Decision Making and ED Course The patient presented with a chief complaint of abdominal pain and tension. The differential diagnosis associated with this patient's presentation includes ventral hernia, bowel obstruction, appendicitis, pancreatitis, hepatitis, pyelonephritis, . Our workup consisted of ordering/reviewing Laboratory studies and abdominal CT. Laboratory studies show no clinically significant electrolyte abnormality no renal sufficiency no hyperglycemia no clinically significant hepatic inflammation no pancreatitis no anemia. There is no evidence of urinary tract infection. She is not . CT imaging shows partial small bowel obstruction. Patient has difficulty keep anything down and would benefit from hospitalization. She agrees. Discussed management with the general surgery and hospitalist team. Review of prior external records: Inpatient record from September 13, 2023 through September 15, 2023 for ventral hernia with obstruction with out gangrene. Surgery consult note by Dr. Barroso advising outpatient follow-up. Independent test interpretation by me: Abdominal CT Discussions of test interpretation with other clinicians: General surgery and hospitalist Chronic conditions impacting care: Ventral hernia and multiple abdominal surgical procedures makes her more susceptible to obstruction. Social determinants of health affecting care: Transferring care from an outside facility to here, currently between surgeons. ED Medications managed: Symptoms improved with ED treatment. Discussion of management with other physicians: General surgery and hospitalist Consideration of hospitalization or de-escalation of care: Meets criteria for hospitalization because she is symptomatic from her hernia and would benefit from fluids analgesics antiemetics and care coordination with the surgery service. REVAL: 11:58 AM All data now available and reviewed with patient. Surgery paged. Requesting more pain medicine. Ordered. 12:30 PM Spoke to general surgery 12:35 PM Accepted by hospitalist. Transport called 3:33 PM Transport here. CONSULTS: Surgery Hospitalist FINAL IMPRESSION 1. Ventral hernia with obstruction Depression Cholecystectomy Appendectomy DISPOSITION Observation 10/19/2023 12:50:02 PM PATIENT REFERRED TO: No follow-up provider specified. DISCHARGE MEDICATIONS: New Prescriptions No medications on file (Comment: Please note this report has been produced using speech recognition software and may contain errors related to that system including errors in grammar, punctuation, and spelling, as well as words and phrases that may be inappropriate. If there are any questions or concerns please feel free to contact the dictating provider for clarification.) Heath Lim MD (electronically signed) Emergency Medicine Provider Heath Lim MD 10/19/23 1533 [facility] 10-17-2023 Note HNO ID: [id number] Author: SCOT NUR MD Service: ? Author Type: Physician Type: Progress Notes Filed: 10/17/2023 19:12 Note Text: Patient presents with: Mass: Hernia on abdomen x 2 years, nausea, vomiting x 2 days HPI: Hernia pain: Duration: started yesterday Location: chronic ventral abdominal hernia Character: aggravated. Does not feel like prior strangulation Aggravating: discomfort started after vomiting Relieving: phenergan suppository Pain relievers: Associated: nausea, vomiting, diarrhea, household has gastroenteritis Pertinent negatives: Denies blood in stool/emesis, fever, MEDICATIONS: busPIRone HCl 30 mg tablet Take 1 tablet by mouth two times a day. FLUoxetine (PROZAC) 20 mg capsule Take 1 capsule by mouth once daily. Take with 2 capsules of the 40 mg dose. FLUoxetine (PROZAC) 40 mg capsule Take 2 capsules by mouth once daily. Take with 20 mg dose. guanFACINE (INTUNIV) 1 mg ER 24 hr tablet(s) Take 1 tablet by mouth daily at bedtime. ALLERGIES: ALLERGIES Allergen Reactions Toradol [Ketorolac] Hives, Shortness of Breath Zofran [Ondansetron* Hives, Shortness of Breath VITALS: BP 140/84 Pulse 119 Temp 37.2 ?C (98.9 ?F) Resp 21 Wt 117.4 kg (258 lb 12.8 oz) LMP 05/27/2021 SpO2 96% BMI 43.07 kg/m? PHYSICAL EXAM: GEN: pleasant, no acute distress, alert HEENT: PERRL, EOMI, MMM NECK: supple, HEART: regular rate, regular rhythm, during my exam, no murmurs LUNGS: clear to auscultation, no wheezes or crackles, no increased WOB ABD: Audible borborygmi, volleyball sized mid right lower hernia which is tender to palpation but soft and without erythema. ASSESSMENT/PLAN: 1. Gastroenteritis - ICD9: 558.9, ICD10: K52.9 (primary diagnosis) 2. Ventral hernia without obstruction or gangrene - ICD9: 553.20, ICD10: K43.9 3. Nausea - ICD9: 787.02, ICD10: R11.0 Infectious gastroenteritis. - PROMETHAZINE 25 MG RECTAL SUPPOSITORY Probably increased hernia discomfort from mechanical retching. She is aware strangulation cannot be ruled out by exam here. Follow up in the ER with signs of strangulation or dehydration, increasing abdominal pain, high fever, or blood in vomit or stool. Scot Nur MD [facility] 09-19-2023 Telephone encounter Note Unable to contact patient X2 [facility] 09-19-2023 Miscellaneous Notes Unable to contact patient X2 S: Patient admitted to: [facility] 09/13/23 B: Discharged on : 09/15/23 A: Hospital follow up call initiated to discuss any medication changes, follow up appointments and discharge instructions: Ventral hernia with obstruction and without gangrene R: No contact x 1 at : [phone] documented in this encounter [facility] 09-16-2023 Telephone encounter Note S: Patient admitted to: [facility] 09/13/23 B: Discharged on : 09/15/23 A: Hospital follow up call initiated to discuss any medication changes, follow up appointments and discharge instructions: Ventral hernia with obstruction and without gangrene R: No contact x 1 at : [phone] [facility] 09-15-2023 History of Present illness Narrative Images from the original note were not included. GENERAL SURGERY Progress Note PATIENT NAME: Mel Wall TODAY'S DATE: 09/15/2023 SUBJECTIVE: Follow up on longstanding ventral hernia. Patient seen this morning sitting up in bed, chatting on phone. She notes that she feels better than when she presented to the ED. She notes abdominal soreness but denies new pain, nausea, or vomiting. Patient endorses flatus. She has eaten breakfast without issue. She plans to continue follow up with [facility] surgery but will consider reaching out to our service if needed. Pain controlled Yes Other Complaints No Flatus/BM/or Ostomy function Yes OBJECTIVE: VITALS: BP 125/76 (BP Location: Right arm) Pulse 76 Temp 36.7 C (98.1 F) (Temporal) Resp 16 Ht 5' 5 (1.651 m) Wt 245 lb 13 oz (112 kg) SpO2 96% BMI 40.91 kg/m INTAKE/OUTPUT: I/O last 3 completed shifts: In: 2005.3 (18 mL/kg) [P.O.:50; I.V.:1955.3 (17.5 mL/kg)] Out: - (0 mL/kg) Weight: 111.5 kg No intake/output data recorded. REVIEW OF SYSTEMS: Pertinent positives and negatives as per interval history section PHYSICAL EXAM: CONSTITUTIONAL: A&O x 3, LUNGS: Resp effort easy and unlabored, breath sounds normal CARDIOVASCULAR: RRR ABDOMEN: soft, nondistended, mild central tenderness at hernia, peritoneal signs absent. Hernia present, not able to be reduced, minimally tender MUSCULOSKELETAL: Normal range of motion NEUROLOGIC: Level of Alertness: alert PSYCHIATRIC: Speech is normal SKIN: Warm, dry, and intact Data: XR abdomen 1 view Status: Final result Link to Procedure Log Procedure Log PACS Images Show images for XR abdomen 1 view Study Result Narrative & Impression Patient Name: MEL WALL : 1985 Exam Date/Time: 09/14/2023 08:52 Procedure: XR ABDOMEN 1 VIEW Ordering Provider: CONNER DANIEL Reason For Exam: possible sbo SUPINE ABDOMEN (KUB) CLINICAL INDICATION: Abdominal pain A supine plain film of the abdomen was obtained. COMPARISON: CT abdomen and pelvis dated 09/13/2023 FINDINGS: The bowel demonstrates a normal gas pattern. Free air under the diaphragm cannot be adequately assessed on this single, supine view. Upright or decubitus films may be obtained if clinically warranted. No pathologic calcifications are identified. Visualized bony structures are grossly unremarkable. Tubal ligation clips are noted. IMPRESSION: Nonobstructive bowel gas pattern. Report Dictated on Electronically Signed By: Chad Burgos MD Electronically Signed Date/Time: 09/14/2023 9:54 AM EST Result History XR abdomen 1 view (Order #[id number]) on 09/14/2023 - Order Result History Report XR abdomen 1 view: Patient Communication Add Comments Seen Breast Imaging Recommendations Mel Wall No recommendations exist for this order. Risk Scores No Tyrer-Cuzick assessment data. No Risk Considerations assessment data. No NCC HBOC Guidelines assessment data. No NCCN Paul assessment data. No Risk Explanation Tyrer-Cuzick 8 assessment data. No BRCAPRO assessment data. No Myriad risk assessment data. No Klaus risk assessment data. No Tawanna risk assessment data. No LUGGER Request ID assessment data. No [facility] in room dining server ID assessment data. Signed by Signed Time Phone Pager Chad Burgos MD 09/14/2023 09:54 Exam Information Status Exam Begun Exam Ended Final 09/14/2023 08:40 09/14/2023 08:52 External Results Report Open External Results Report Encounter View Encounter Study Details Open Study Details Order Transmittal Tracking XR abdomen 1 view (Order #[id number]) on 09/14/23 Order Report XR abdomen 1 view (Order #[id number]) on 09/14/23 CBC: Recent Labs 09/13/23 1139 WBC 10.2 HGB 14.1 HCT 42.8 PLT 308 BMP: Recent Labs 09/13/23 1139 NA 135 K 4.1 CL 105 CO2 23 BUN 6* CREATININE 0.48* GLUCOSE 130* Hepatic: Recent Labs 09/13/23 1139 AST 16 ALT 17 BILITOT 0.3 ALKPHOS 46 ASSESSMENT AND PLAN: Ms. Wall is a 38 y.o. F presenting with abdominal pain 2/2 known ventral hernia -WBC 10.2, Hgb 14.1 -CT with large wall hernia containing loops of large and small bowel, dilated small bowel loop -Subsequent XR with nonobstructive bowel gas pattern -Exam with hernia unable to be reduced however soft abdomen and nontender -Diet as tolerated -Okay for discharge -Medical mgmt per primary team Disposition: Patient doing well today, symptomatically improved with (+) bowel function and diet tolerance. Okay for discharge, no surgical intervention this hospitalization. Patient to continue to follow up with primary surgeon at [facility], however we are available for follow up if needed. Patient counseled on risks, benefits, and alternatives of treatment plan today. Patient states an understanding and willingness to proceed with plan. HALEIGH Guajardo Associated attestation - Tony Barroso MD - 09/15/2023 4:49 PM EST [facility] - Surgery [facility] Physicians Surgery Patient Name: Mel Wall Date: 09/15/2023 Patient seen and examined by myself and I agree with CASANDRA note below Patient resting in bed and appears comfortable Abdominal pain resolved Abdomen soft nontender nondistended large incisional hernia present Labs/imaging reviewed/interpreted Assessment /Plan: Abdominal pain resolved Longstanding incisional hernia and she is scheduled to follow-up with hernia clinic at [facility] Follow-up with general surgery here as needed Patient counseled on risks,benefits, and alternatives of treatement plan at length. Patient states an understanding and willingness to proceed with plan. I personally supervised my CASANDRA and/or resident in the evaluation and management of Mel Wall in the development of a treatment plan for this patient. I personally interviewed the patient and performed an individual physical examination. In addition, I discussed the patient's condition and treatment options with them. I have also reviewed and agree with the past medical, family and social history and care plan unless otherwise noted. All of the patient's questions were answered. This case represents moderate level care including chart review, care coordination and face to face encounter was spent discussing/counseling the patient regarding the care plan for this patient. The patient was seen and examined independently and relevant data reviewed by myself. A full chart review was performed. Tony Barroso MD [facility] General Surgery 4:48 PM 09/15/2023 Nutrition rescreen complete. Pt assigned a level one for nutrition care. Images from the original note were not included. Hospitalist Progress Note 09/14/[phone]: Please page wy ([phone]) for patient care issues. [phone]: Please page [facility] night Hospitalist for any issues. Subjective: Admit Date: 09/13/2023 PCP: No primary care provider on file. Room#: B2-268/B2-268 B Interval History: No overnight issues. Denies chest pain, sob, but admits to abdominal pain. Also admits to chronic abdominal pain and has been seen at [facility] and also other hospitals as well. Having some mild nausea, but no vomiting this am. diarrhea, no fevers, or chills. NPO diet without enteral medications @[id number]@ 24HR INTAKE/OUTPUT: Intake/Output Summary (Last 24 hours) at 09/14/2023 0858 Last data filed at 09/14/2023 0619 Gross per 24 hour Intake 1045.83 ml Output -- Net 1045.83 ml Past Medical History: Past Medical History: Diagnosis Date Anxiety Bipolar affective (HCC) Depression LABS: CBC: Recent Labs 09/13/23 1139 WBC 10.2 RBC 4.49 HGB 14.1 HCT 42.8 MCV 95.3 RDW 12.5 PLT 308 BMP: Recent Labs 09/13/23 1139 NA 135 K 4.1 CL 105 CO2 23 BUN 6* CREATININE 0.48* GLUCOSE 130* CALCIUM 8.7 ANIONGAP 7 LIVER PROFILE: Recent Labs 09/13/23 1139 AST 16 ALT 17 BILITOT 0.3 ALKPHOS 46 PROT 7.1 PT/INR: No results for input(s): PROTIME, INR in the last 72 hours. CARDIAC ENZYMES: No results for input(s): TROPONINI in the last 72 hours. Procalcitonin: No results found for: PROCAL COVID-19 PCR: No results for input(s): COVID19 in the last 72 hours. Objective: Vitals: BP 125/71 (BP Location: Left arm, Patient Position: Lying) Pulse 61 Temp (!) 35.9 C (96.7 F) (Temporal) Resp 19 Ht 5' 5 (1.651 m) Wt 245 lb 13 oz (112 kg) SpO2 98% BMI 40.91 kg/m Pulse Ox: SpO2 Av.7 % Min: 94 % Max: 99 % Supplemental O2: General appearance: No apparent distress, appears stated age, HEENT: Eyes: No scleral icterus Oral: Tongue is semi-moist Cardiovascular: S1/S2 heard, RRR Respiratory: Clear to auscultation bilaterally Abdomen: Soft, positive pain to palp of abd but no guarding, etc, non-distended bowel sounds positive Musculoskeletal: No obvious deformities seen Skin: No visible rashes or lesions. Medications: dextrose 5 % and sodium chloride 0.9 %, 125 mL/hr, Last Rate: 125 mL/hr (09/14/23618) busPIRone, 30 mg, Oral, BID enoxaparin, 30 mg, SubCUTAneous, 2 times per day FLUoxetine, 80 mg, Oral, Daily Assessment # Acute on chronic abdominal pain with significant abdominal surgical history in the past - Imaging at outside emergency room did show dilation of small bowel. Rule out early SBO vs Ileus. Continue IVF and antinausea meds. Surgery to see and evaluate. Of note, patient appears to have been to multiple hospital for this including [facility], [facility], [facility] etc. She is from [place]. Was even transferred to [place] in past due to abdominal pain with hx of extensive abdominal surgery per [facility]. # Hx of Bipolar disorder/anxiety Plan Surgery to see and evaluate. Continue current tx the same. Toxic drug monitoring/narrow therapeutic index drug monitoring if any: # Drug name : # Route administered : # Method of monitoring : Extended Emergency Contact Information Primary Emergency Contact: GretaStephanie/[place] Relation: Child DANYEL BARAJAS MD Division of Hospitalist Medicine Inpatient Medical Services/[facility] PAGER: Epic chat documented in this encounter [facility] 09-15-2023 Plan of care note Problem: Knowledge Deficit Goal: Patient/family/caregiver demonstrates understanding of disease process, treatment plan, medications, and discharge instructions 09/15/2023 1028 by Negro Bal RN Outcome: Adequate for Discharge 09/15/2023 0832 by Negro Bal RN Outcome: Progressing Problem: Insufficient Fluid Volume Goal: Fluid and electrolyte balance are achieved/maintained 09/15/2023 1028 by Negro Bal RN Outcome: Adequate for Discharge 09/15/2023 0832 by Negro Bal RN Outcome: Progressing Problem: Elimination Goal: Elimination patterns are normal or improving 09/15/2023 1028 by Negro Bal RN Outcome: Adequate for Discharge 09/15/2023 0832 by Negro Bal RN Outcome: Progressing Problem: Insufficient Nutritional Intake Goal: Patient's nutritional intake is adequate 09/15/2023 1028 by Negro Bal RN Outcome: Adequate for Discharge 09/15/2023 0832 by Negro Bal RN Outcome: Progressing Goal: Mobility/activity is maintained at optimum level for patient 09/15/2023 1028 by Negro Bal RN Outcome: Adequate for Discharge 09/15/2023 0832 by Negro Bal RN Outcome: Progressing Problem: Inadequate Coping Goal: Demonstrates ability to cope effectively 09/15/2023 1028 by Negro Bal RN Outcome: Adequate for Discharge 09/15/2023 0832 by Negro Bal RN Outcome: Progressing Goal: Verbalizes adaptive coping mechanisms 09/15/2023 1028 by Negro Bal RN Outcome: Adequate for Discharge 09/15/2023 0832 by Negro Bal RN Outcome: Progressing Goal: Verbalizes personal strengths 09/15/2023 1028 by Negro Bal RN Outcome: Adequate for Discharge 09/15/2023 0832 by Negro Bal RN Outcome: Progressing Problem: Hemodynamic Status Goal: Patient's vitals signs are stable 09/15/2023 1028 by Negro Bal RN Outcome: Adequate for Discharge 09/15/2023 0832 by Negro Bal RN Outcome: Progressing Problem: Discharge Barriers Goal: My discharge needs are met 09/15/2023 1028 by Negro Bal RN Outcome: Adequate for Discharge 09/15/2023 0832 by Negro Bal RN Outcome: Progressing Problem: Pain - Adult Goal: Verbalizes/displays adequate comfort level or baseline comfort level 09/15/2023 1028 by Negro Bal RN Outcome: Adequate for Discharge 09/15/2023 0832 by Negro Bal RN Outcome: Progressing Problem: Safety - Adult Goal: Free from fall injury 09/15/2023 1028 by Negro Bal RN Outcome: Adequate for Discharge 09/15/2023 0832 by Negro Bal RN Outcome: Progressing Problem: Discharge Planning Goal: Discharge to home or other facility with appropriate resources 09/15/2023 1028 by Negro Bal RN Outcome: Adequate for Discharge 09/15/2023 0832 by Negro Bal RN Outcome: Progressing Problem: Chronic Conditions and Co-morbidities Goal: Patient's chronic conditions and co-morbidity symptoms are monitored and maintained or improved 09/15/2023 1028 by Negro Bal RN Outcome: Adequate for Discharge 09/15/2023 0832 by Negro Bal RN Outcome: Progressing The patient is Moderately Stable - Low risk of patient condition declining or worsening The patient's goals for the shift include The clinical goals for the shift include no pain, able to rest [facility] 09-15-2023 Miscellaneous Notes Problem: Knowledge Deficit Goal: Patient/family/caregiver demonstrates understanding of disease process, treatment plan, medications, and discharge instructions 09/15/2023 1028 by Negro Bal RN Outcome: Adequate for Discharge 09/15/2023 0832 by Negro Bal RN Outcome: Progressing Problem: Insufficient Fluid Volume Goal: Fluid and electrolyte balance are achieved/maintained 09/15/2023 1028 by Negro Bal RN Outcome: Adequate for Discharge 09/15/2023 0832 by Negro Bal RN Outcome: Progressing Problem: Elimination Goal: Elimination patterns are normal or improving 09/15/2023 1028 by Negro Bal RN Outcome: Adequate for Discharge 09/15/2023 08 by Negro Bal RN Outcome: Progressing Problem: Insufficient Nutritional Intake Goal: Patient's nutritional intake is adequate 09/15/2023 1028 by Negro Bal RN Outcome: Adequate for Discharge 09/15/2023 0832 by Negro Bal RN Outcome: Progressing Goal: Mobility/activity is maintained at optimum level for patient 09/15/2023 1028 by Negro Bal RN Outcome: Adequate for Discharge 09/15/2023 0832 by Negro Bal RN Outcome: Progressing Problem: Inadequate Coping Goal: Demonstrates ability to cope effectively 09/15/2023 1028 by Negro Bal RN Outcome: Adequate for Discharge 09/15/2023 0832 by Negro Bal RN Outcome: Progressing Goal: Verbalizes adaptive coping mechanisms 09/15/2023 1028 by Negro Bal RN Outcome: Adequate for Discharge 09/15/2023 0832 by Negro Bal RN Outcome: Progressing Goal: Verbalizes personal strengths 09/15/2023 1028 by Negro Bal RN Outcome: Adequate for Discharge 09/15/2023 0832 by Negro Bal RN Outcome: Progressing Problem: Hemodynamic Status Goal: Patient's vitals signs are stable 09/15/2023 1028 by Negro Bal RN Outcome: Adequate for Discharge 09/15/2023 0832 by Negro Bal RN Outcome: Progressing Problem: Discharge Barriers Goal: My discharge needs are met 09/15/2023 1028 by Negro Bal RN Outcome: Adequate for Discharge 09/15/2023 0832 by Negro Bal RN Outcome: Progressing Problem: Pain - Adult Goal: Verbalizes/displays adequate comfort level or baseline comfort level 09/15/2023 1028 by Negro Bal RN Outcome: Adequate for Discharge 09/15/2023 0832 by Negro Bal RN Outcome: Progressing Problem: Safety - Adult Goal: Free from fall injury 09/15/2023 1028 by Negro Bal RN Outcome: Adequate for Discharge 09/15/2023 0832 by Negro Bal RN Outcome: Progressing Problem: Discharge Planning Goal: Discharge to home or other facility with appropriate resources 09/15/2023 1028 by Negro Bal RN Outcome: Adequate for Discharge 09/15/2023 0832 by Negro Bal RN Outcome: Progressing Problem: Chronic Conditions and Co-morbidities Goal: Patient's chronic conditions and co-morbidity symptoms are monitored and maintained or improved 09/15/2023 1028 by Negro Bal RN Outcome: Adequate for Discharge 09/15/2023 0832 by Negro Bal RN Outcome: Progressing The patient is Moderately Stable - Low risk of patient condition declining or worsening The patient's goals for the shift include The clinical goals for the shift include no pain, able to rest Problem: Knowledge Deficit Goal: Patient/family/caregiver demonstrates understanding of disease process, treatment plan, medications, and discharge instructions Outcome: Progressing Problem: Insufficient Fluid Volume Goal: Fluid and electrolyte balance are achieved/maintained Outcome: Progressing Problem: Elimination Goal: Elimination patterns are normal or improving Outcome: Progressing Problem: Insufficient Nutritional Intake Goal: Patient's nutritional intake is adequate Outcome: Progressing Goal: Mobility/activity is maintained at optimum level for patient Outcome: Progressing Problem: Inadequate Coping Goal: Demonstrates ability to cope effectively Outcome: Progressing Goal: Verbalizes adaptive coping mechanisms Outcome: Progressing Goal: Verbalizes personal strengths Outcome: Progressing Problem: Hemodynamic Status Goal: Patient's vitals signs are stable Outcome: Progressing Problem: Discharge Barriers Goal: My discharge needs are met Outcome: Progressing Problem: Pain - Adult Goal: Verbalizes/displays adequate comfort level or baseline comfort level Outcome: Progressing Problem: Safety - Adult Goal: Free from fall injury Outcome: Progressing Problem: Discharge Planning Goal: Discharge to home or other facility with appropriate resources Outcome: Progressing Problem: Chronic Conditions and Co-morbidities Goal: Patient's chronic conditions and co-morbidity symptoms are monitored and maintained or improved Outcome: Progressing The patient is Moderately Stable - Low risk of patient condition declining or worsening The patient's goals for the shift include The clinical goals for the shift include no pain, able to rest Attempted to do IA, patient sound asleep and did not wake up. Will attempt again as time allows. TCC will continue to follow. The patient is Moderately Stable - Low risk of patient condition declining or worsening The patient's goals for the shift include pain management The clinical goals for the shift include monitor vital signs Over the shift, the patient did not make progress toward the following goals. Barriers to progression include education. Recommendations to address these barriers include reinforcement. Problem: Elimination Goal: Elimination patterns are normal or improving Outcome: Not Progressing Problem: Knowledge Deficit Goal: Patient/family/caregiver demonstrates understanding of disease process, treatment plan, medications, and discharge instructions Outcome: Progressing Problem: Insufficient Fluid Volume Goal: Fluid and electrolyte balance are achieved/maintained Outcome: Progressing Problem: Insufficient Nutritional Intake Goal: Patient's nutritional intake is adequate Outcome: Progressing Goal: Mobility/activity is maintained at optimum level for patient Outcome: Progressing Problem: Inadequate Coping Goal: Demonstrates ability to cope effectively Outcome: Progressing Goal: Verbalizes adaptive coping mechanisms Outcome: Progressing Goal: Verbalizes personal strengths Outcome: Progressing Problem: Hemodynamic Status Goal: Patient's vitals signs are stable Outcome: Progressing Problem: Discharge Barriers Goal: My discharge needs are met Outcome: Progressing Problem: Pain - Adult Goal: Verbalizes/displays adequate comfort level or baseline comfort level Outcome: Progressing Problem: Safety - Adult Goal: Free from fall injury Outcome: Progressing Problem: Discharge Planning Goal: Discharge to home or other facility with appropriate resources Outcome: Progressing Problem: Chronic Conditions and Co-morbidities Goal: Patient's chronic conditions and co-morbidity symptoms are monitored and maintained or improved Outcome: Progressing The patient is Moderately Stable - Low risk of patient condition declining or worsening The patient's goals for the shift include The clinical goals for the shift include no pain, able to rest Over the shift, the patient did not make progress toward the following goals. Barriers to progression include pain. Recommendations to address these barriers include pain management. Problem: Elimination Goal: Elimination patterns are normal or improving Outcome: Not Progressing documented in this encounter [facility] 09-15-2023 Hospital course Narrative Discharge Summary Mel Wall : 1985 ADMIT DATE: 09/13/2023 DISCHARGE DATE: 09/15/2023 PRIMARY CARE PHYSICIAN: No primary care provider on file. VISIT STATUS: Admission CODE STATUS: Full Code DISCHARGE DIAGNOSES: Principal Problem: Ventral hernia with obstruction and without gangrene HOSPITAL COURSE: 38 yo female came in to ER on 09/13 with Abd pain started at 2:30 am She has pain in lower right sided of abd right lower portion of her ventral hernia - she has existing large ventral hernia She then had nausea and vomiting, After the pain started This is when she presented to the emergency room. She has had this happen a few times in the past. She has been trying to get her hernia repaired she was working with [facility] and trying to lose weight prior to surgery. The following is a summary of her diagnosis/management during her stay here at [facility]: # Acute on chronic abdominal pain with significant abdominal surgical history in the past - Imaging at outside emergency room did show dilation of small bowel. Has been on IVF and antinausea meds. Surgery consulted and has seen. States No indication for acute surgical intervention. Patient is well aware that elective hernia repair in her situation is not recommended and could actually be detrimental per surgery. She is being seen and evaluated by hernia clinic at [facility] and surgery recommend she continue with follow-up. They state Okay for regular diet and DC home when tolerating. She is tolerating this am. Will discharge home. Will give few tablets of percocet only and she will need to follow up with her PCP and [facility] # Hx of Bipolar disorder/anxiety Physical exam: Cardiovascular: S1/S2 heard, RRR Respiratory: Clear to auscultation bilaterally Abdomen: Soft, positive pain to palp of right abd but no guarding or grimacing and very cofortable, non-distended bowel sounds positive Musculoskeletal: No obvious deformities seen Skin: No visible rashes or lesions. SIGNIFICANT DIAGNOSTIC STUDIES: As above CONSULTANTS: Surgery RECOMMENDED NEXT STEPS: DISCHARGE MEDICATIONS: Medication List START taking these medications oxyCODONE-acetaminophen 5-325 MG tablet Commonly known as: Percocet Take 1 tablet by mouth every 8 hours as needed for severe pain (7-10) for up to 5 days. CONTINUE taking these medications busPIRone 30 MG tablet Commonly known as: Buspar FLUoxetine 40 MG capsule Commonly known as: PROzac guanFACINE 1 mg 24 hr tablet Commonly known as: Intuniv Where to Get Your Medications These medications were sent to [id number] - [place], [place] - [address] [id number] oxyCODONE-acetaminophen 5-325 MG tablet DIET: Adult diet Regular ACTIVITY: No restriction. COMPLEXITY OF FOLLOW UP: [] Moderate Complexity: follow up within 7-14 calendar days (13913) [] Severe Complexity: follow up within 7 calendar days (99610) FOLLOW UP TESTING, PENDING RESULTS OR REFERRALS AT TRANSITIONAL CARE VISIT: [] Yes [] No PENDING STUDIES: DISPOSITION: Home FACILITY/HOME CARE AGENCY NAME: Follow up with No follow-up provider specified. Follow up with PCP and [place] [facility] INSTRUCTIONS TO MA/SW: Please call patient on day after discharge (must document patient contacted within 2 business days of discharge). FOLLOW UP QUESTIONS FOR MA/SW: 1. Did you get medications filled and taking them as instructed from discharge? 2. Are you following your discharge instructions from your hospital stay? 3. Please confirm patient is scheduled for a follow up appointment within the above time frame. DISCHARGE TIME: > 31 minutes SIGNED: DANYEL BARAJAS MD 09/15/2023, 8:53 AM documented in this encounter [facility] 09-15-2023 Plan of care note Problem: Knowledge Deficit Goal: Patient/family/caregiver demonstrates understanding of disease process, treatment plan, medications, and discharge instructions Outcome: Progressing Problem: Insufficient Fluid Volume Goal: Fluid and electrolyte balance are achieved/maintained Outcome: Progressing Problem: Elimination Goal: Elimination patterns are normal or improving Outcome: Progressing Problem: Insufficient Nutritional Intake Goal: Patient's nutritional intake is adequate Outcome: Progressing Goal: Mobility/activity is maintained at optimum level for patient Outcome: Progressing Problem: Inadequate Coping Goal: Demonstrates ability to cope effectively Outcome: Progressing Goal: Verbalizes adaptive coping mechanisms Outcome: Progressing Goal: Verbalizes personal strengths Outcome: Progressing Problem: Hemodynamic Status Goal: Patient's vitals signs are stable Outcome: Progressing Problem: Discharge Barriers Goal: My discharge needs are met Outcome: Progressing Problem: Pain - Adult Goal: Verbalizes/displays adequate comfort level or baseline comfort level Outcome: Progressing Problem: Safety - Adult Goal: Free from fall injury Outcome: Progressing Problem: Discharge Planning Goal: Discharge to home or other facility with appropriate resources Outcome: Progressing Problem: Chronic Conditions and Co-morbidities Goal: Patient's chronic conditions and co-morbidity symptoms are monitored and maintained or improved Outcome: Progressing The patient is Moderately Stable - Low risk of patient condition declining or worsening The patient's goals for the shift include The clinical goals for the shift include no pain, able to rest [facility] 09-14-2023 Note Formatting of this n ote might be different from the original. Attempted to do IA, patient sound asleep and did not wake up. Will attempt again as time allows. TCC will continue to follow. [facility] 09-14-2023 Note Formatting of this n ote might be different from the original. Attempted to do IA, patient sound asleep and did not wake up. Will attempt again as time allows. TCC will continue to follow. [facility] 09-14-2023 Consult note Formatting of th is note is different from the original. [facility] - Surgery [facility] Physicians Surgery Patient Name: Mel Wall Date: 09/14/2023 Patient seen and examined by myself and I agree with CASANDRA note below Patient resting in bed and she appears comfortable Abdominal pain resolved positive flatus Abdomen soft nondistended large incisional hernia easily reducible Labs and imaging reviewed and interpreted Assessment /Plan: Longstanding recurrent incisional hernia with loss of domain abdominal wall No indication for acute surgical intervention Patient is well aware that elective hernia repair in her situation is not recommended and could actually be detrimental She is being seen and evaluated by hernia clinic at [facility] and I recommend she continue with follow-up Okay for regular diet and DC home when tolerating Patient counseled on risks,benefits, and alternatives of treatement plan at length. Patient states an understanding and willingness to proceed with plan. I personally supervised my CASANDRA and/or resident in the evaluation and management of Mel Wall in the development of a treatment plan for this patient. I personally interviewed the patient and performed an individual physical examination. In addition, I discussed the patient's condition and treatment options with them. I have also reviewed and agree with the past medical, family and social history and care plan unless otherwise noted. All of the patient's questions were answered. This case represents moderate level care including chart review, care coordination and face to face encounter was spent discussing/counseling the patient regarding the care plan for this patient. The patient was seen and examined independently and relevant data reviewed by myself. A full chart review was performed. Tony Barroso MD [facility] General Surgery 4:45 PM 09/14/2023 Department of General Surgery Consult PATIENT NAME: Mel Wall DATE OF : 1985 ADMISSION DATE: 09/13/2023 11:11 AM TODAY'S DATE: 09/14/2023 Reason for Consult: Abdominal pain and known ventral hernia HISTORY OF PRESENT ILLNESS: The patient is a 38 y.o. female who presents with worsening abdominal pain since Tuesday. She has a known ventral hernia and has been seen multiple times by other hospitals for similar worsening symptoms. She does have a surgical history of multiple hernia repairs. She states that since her last repair her hernia has enlarged and has been subject to more frequent painful episodes. Patient states that Tuesday she had a BM which she described as watery and contained blood that looked somewhat clotted. Soon after she started having abdominal pain at the site of her hernia in her RLQ. She attempted to make it through her work day but she had a vomiting episode and the pain worsened, therefore she reported to the ED. Patient was admitted and surgery consulted to investigate the extent of her ventral hernia. Today in the Am, patient states that her pain has gotten better but it is still constantly dull with episodes of sharp pain attacks. She does admit to 1 vomiting episode since arriving and some nausea, and has had no BM. Patient does state that she has been regularly waking around. She states that she would like to talk about getting surgery done here at [facility] try and deal with the problem. She normally will see surgery at [facility]. She denies any fevers/chills. Thoroughly reviewed the patient's medical history, family history, social history and review of systems with the patient today in the office. Please see medical record for pertinent positives. Past Medical History: Past Medical History: Diagnosis Date Anxiety Bipolar affective (HCC) Depression Past Surgical History: Past Surgical History: Procedure Laterality Date APPENDECTOMY CHOLECYSTECTOMY HERNIA REPAIR OTHER SURGICAL HISTORY JANEL-EN-Y W/GASTROENTEROS TONSILLECTOMY Current Medications: busPIRone, 30 mg, Oral, BID enoxaparin, 30 mg, SubCUTAneous, 2 times per day FLUoxetine, 80 mg, Oral, Daily dextrose 5 % and sodium chloride 0.9 %, 125 mL/hr, Last Rate: 125 mL/hr (09/14/23618) PRN medications: acetaminophen OR acetaminophen, morphine sulfate, prochlorperazine Allergies: Ketorolac and Ondansetron Social History: Social History Socioeconomic History Marital status: Single Spouse name: Not on file Number of children: Not on file Years of education: Not on file Highest education level: Not on file Occupational History Not on file Tobacco Use Smoking status: Never Smokeless tobacco: Never Substance and Sexual Activity Alcohol use: Not on file Drug use: Yes Types: Marijuana Sexual activity: Not on file Other Topics Concern Not on file Social History Narrative Not on file Social Determinants of Health Financial Resource Strain: Not on file Food Insecurity: Not on file Transportation Needs: Not on file Physical Activity: Not on file Stress: Not on file Social Connections: Not on file Intimate Partner Violence: Not on file Housing Stability: Not on file Family History: No family history on file. REVIEW OF SYSTEMS: CONSTITUTIONAL: Negative for fatigue, and unexpected weight change HENT: Negative for hearing loss, nosebleeds, sneezing, sore throat, trouble swallowing and voice change. RESPIRATORY: Negative for cough, SOB, and wheezing CARDIOVASCULAR: Negative for chest pains and palpatations GASTROINTESTINAL: diarrhea, hematochezia, nausea, and vomiting GENITOURINARY: negative for dysuria, urgency, frequency, and difficulty urinating. SKIN: negative for rash ALLERGIC/IMMUNOLOGIC: Negative for immunocompromised state HEMATOLOGIC/LYMPHATIC: Negative for adenopathy. Does not bruise/bleed easily. NEUROLOGICAL: Negative for seizures and syncope * All other ROS reviewed see HPI for pertinent positives and negatives. PHYSICAL EXAM: VITALS: BP 125/71 (BP Location: Left arm, Patient Position: Lying) Pulse 61 Temp (!) 35.9 C (96.7 F) (Temporal) Resp 19 Ht 5' 5 (1.651 m) Wt 245 lb 13 oz (112 kg) SpO2 98% BMI 40.91 kg/m 24HR INTAKE/OUTPUT: I/O last 3 completed shifts: In: 1045.8 (9.4 mL/kg) [P.O.:50; I.V.:995.8 (8.9 mL/kg)] Out: - (0 mL/kg) Weight: 111.5 kg No intake/output data recorded. CONSTITUTIONAL: Appears well nourished. No distress, sleeping comfortably EYES: PERRL, conjunctiva normal ENT: Normocepalic,atraumatic, without obvious abnormality NECK: supple, symmetrical, trachea midline, no thyromegaly LUNGS: Resp effort easy and unlabored, breath sounds normal CARDIOVASCULAR: NO JVD, RRR, No murmur ABDOMEN: Posititve for TTP on hernia in RLQ, abdominal distension, surgical scars MUSCULOSKELETAL: Normal range of motion, no edema NEUROLOGIC: Mental Status Exam: Level of Alertness: A/O x 3 Sensation globally intact PSYCHIATRIC: Oriented to person, place, and time. Speech is normal, mood appears normal SKIN: Warm, dry, and intact DATA: CBC: Recent Labs 09/13/23 1139 WBC 10.2 HGB 14.1 HCT 42.8 PLT 308 BMP: Recent Labs 09/13/23 1139 NA 135 K 4.1 CL 105 CO2 23 BUN 6* CREATININE 0.48* GLUCOSE 130* Hepatic: Recent Labs 09/13/23 1139 AST 16 ALT 17 BILITOT 0.3 ALKPHOS 46 Mag: Recent Labs 09/13/23 1139 MG 2.0 Phos: No results for input(s): PHOS in the last 72 hours. INR: No results for input(s): INR in the last 72 hours. IMPRESSION/RECOMMENDATIONS: - Upon examination in the AM, patient appeared sleeping comfortably - On exam her hernia does appear to be very large and she is distressed about the pain and size - Surgery is a considerable option considering the length and extent of pain the patient has been going through, however needs to continue weight loss to lower operative risk - Patient requests to discuss doing her surgery with Rob. She is aware of her weight and is continuing to work on losing more. - Will continue to monitor patient while in hospital: okay for diet trial - Patient may follow up with general surgery on outpatient basis for continued monitoring and surgical planning - Medical mgmt per primary team - Okay for discharge once tolerating diet Patient counseled on risks, benefits, and alternatives of treatment plan at length. Patient states an understanding and willingness to proceed with plan. Thank you for the opportunity to care for your patient, please don't hesitate to contact me for any questions or concerns you may have. Serafin ANNAS I personally supervised the care of this patient by the PA student above and agree with Assessment and Plan. 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 [facility] Phone: 09-14-2023 Consult note Formatting of th is note is different from the original. [facility] - Surgery [facility] Physicians Surgery Patient Name: Mel Wall Date: 09/14/2023 Patient seen and examined by myself and I agree with CASANDRA note below Patient resting in bed and she appears comfortable Abdominal pain resolved positive flatus Abdomen soft nondistended large incisional hernia easily reducible Labs and imaging reviewed and interpreted Assessment /Plan: Longstanding recurrent incisional hernia with loss of domain abdominal wall No indication for acute surgical intervention Patient is well aware that elective hernia repair in her situation is not recommended and could actually be detrimental She is being seen and evaluated by hernia clinic at [facility] and I recommend she continue with follow-up Okay for regular diet and DC home when tolerating Patient counseled on risks,benefits, and alternatives of treatement plan at length. Patient states an understanding and willingness to proceed with plan. I personally supervised my CASANDRA and/or resident in the evaluation and management of Mel Wall in the development of a treatment plan for this patient. I personally interviewed the patient and performed an individual physical examination. In addition, I discussed the patient's condition and treatment options with them. I have also reviewed and agree with the past medical, family and social history and care plan unless otherwise noted. All of the patient's questions were answered. This case represents moderate level care including chart review, care coordination and face to face encounter was spent discussing/counseling the patient regarding the care plan for this patient. The patient was seen and examined independently and relevant data reviewed by myself. A full chart review was performed. oTny Barroso MD [facility] General Surgery 4:45 PM 09/14/2023 Department of General Surgery Consult PATIENT NAME: Mel Wall DATE OF : 1985 ADMISSION DATE: 09/13/2023 11:11 AM TODAY'S DATE: 09/14/2023 Reason for Consult: Abdominal pain and known ventral hernia HISTORY OF PRESENT ILLNESS: The patient is a 38 y.o. female who presents with worsening abdominal pain since Tuesday. She has a known ventral hernia and has been seen multiple times by other hospitals for similar worsening symptoms. She does have a surgical history of multiple hernia repairs. She states that since her last repair her hernia has enlarged and has been subject to more frequent painful episodes. Patient states that Tuesday she had a BM which she described as watery and contained blood that looked somewhat clotted. Soon after she started having abdominal pain at the site of her hernia in her RLQ. She attempted to make it through her work day but she had a vomiting episode and the pain worsened, therefore she reported to the ED. Patient was admitted and surgery consulted to investigate the extent of her ventral hernia. Today in the Am, patient states that her pain has gotten better but it is still constantly dull with episodes of sharp pain attacks. She does admit to 1 vomiting episode since arriving and some nausea, and has had no BM. Patient does state that she has been regularly waking around. She states that she would like to talk about getting surgery done here at [facility] try and deal with the problem. She normally will see surgery at [facility]. She denies any fevers/chills. Thoroughly reviewed the patient's medical history, family history, social history and review of systems with the patient today in the office. Please see medical record for pertinent positives. Past Medical History: Past Medical History: Diagnosis Date Anxiety Bipolar affective (HCC) Depression Past Surgical History: Past Surgical History: Procedure Laterality Date APPENDECTOMY CHOLECYSTECTOMY HERNIA REPAIR OTHER SURGICAL HISTORY JANEL-EN-Y W/GASTROENTEROS TONSILLECTOMY Current Medications: busPIRone, 30 mg, Oral, BID enoxaparin, 30 mg, SubCUTAneous, 2 times per day FLUoxetine, 80 mg, Oral, Daily dextrose 5 % and sodium chloride 0.9 %, 125 mL/hr, Last Rate: 125 mL/hr (09/14/23618) PRN medications: acetaminophen OR acetaminophen, morphine sulfate, prochlorperazine Allergies: Ketorolac and Ondansetron Social History: Social History Socioeconomic History Marital status: Single Spouse name: Not on file Number of children: Not on file Years of education: Not on file Highest education level: Not on file Occupational History Not on file Tobacco Use Smoking status: Never Smokeless tobacco: Never Substance and Sexual Activity Alcohol use: Not on file Drug use: Yes Types: Marijuana Sexual activity: Not on file Other Topics Concern Not on file Social History Narrative Not on file Social Determinants of Health Financial Resource Strain: Not on file Food Insecurity: Not on file Transportation Needs: Not on file Physical Activity: Not on file Stress: Not on file Social Connections: Not on file Intimate Partner Violence: Not on file Housing Stability: Not on file Family History: No family history on file. REVIEW OF SYSTEMS: CONSTITUTIONAL: Negative for fatigue, and unexpected weight change HENT: Negative for hearing loss, nosebleeds, sneezing, sore throat, trouble swallowing and voice change. RESPIRATORY: Negative for cough, SOB, and wheezing CARDIOVASCULAR: Negative for chest pains and palpatations GASTROINTESTINAL: diarrhea, hematochezia, nausea, and vomiting GENITOURINARY: negative for dysuria, urgency, frequency, and difficulty urinating. SKIN: negative for rash ALLERGIC/IMMUNOLOGIC: Negative for immunocompromised state HEMATOLOGIC/LYMPHATIC: Negative for adenopathy. Does not bruise/bleed easily. NEUROLOGICAL: Negative for seizures and syncope * All other ROS reviewed see HPI for pertinent positives and negatives. PHYSICAL EXAM: VITALS: BP 125/71 (BP Location: Left arm, Patient Position: Lying) Pulse 61 Temp (!) 35.9 C (96.7 F) (Temporal) Resp 19 Ht 5' 5 (1.651 m) Wt 245 lb 13 oz (112 kg) SpO2 98% BMI 40.91 kg/m 24HR INTAKE/OUTPUT: I/O last 3 completed shifts: In: 1045.8 (9.4 mL/kg) [P.O.:50; I.V.:995.8 (8.9 mL/kg)] Out: - (0 mL/kg) Weight: 111.5 kg No intake/output data recorded. CONSTITUTIONAL: Appears well nourished. No distress, sleeping comfortably EYES: PERRL, conjunctiva normal ENT: Normocepalic,atraumatic, without obvious abnormality NECK: supple, symmetrical, trachea midline, no thyromegaly LUNGS: Resp effort easy and unlabored, breath sounds normal CARDIOVASCULAR: NO JVD, RRR, No murmur ABDOMEN: Posititve for TTP on hernia in RLQ, abdominal distension, surgical scars MUSCULOSKELETAL: Normal range of motion, no edema NEUROLOGIC: Mental Status Exam: Level of Alertness: A/O x 3 Sensation globally intact PSYCHIATRIC: Oriented to person, place, and time. Speech is normal, mood appears normal SKIN: Warm, dry, and intact DATA: CBC: Recent Labs 09/13/23 1139 WBC 10.2 HGB 14.1 HCT 42.8 PLT 308 BMP: Recent Labs 09/13/23 1139 NA 135 K 4.1 CL 105 CO2 23 BUN 6* CREATININE 0.48* GLUCOSE 130* Hepatic: Recent Labs 09/13/23 1139 AST 16 ALT 17 BILITOT 0.3 ALKPHOS 46 Mag: Recent Labs 09/13/23 1139 MG 2.0 Phos: No results for input(s): PHOS in the last 72 hours. INR: No results for input(s): INR in the last 72 hours. IMPRESSION/RECOMMENDATIONS: - Upon examination in the AM, patient appeared sleeping comfortably - On exam her hernia does appear to be very large and she is distressed about the pain and size - Surgery is a considerable option considering the length and extent of pain the patient has been going through, however needs to continue weight loss to lower operative risk - Patient requests to discuss doing her surgery with Rob. She is aware of her weight and is continuing to work on losing more. - Will continue to monitor patient while in hospital: okay for diet trial - Patient may follow up with general surgery on outpatient basis for continued monitoring and surgical planning - Medical mgmt per primary team - Okay for discharge once tolerating diet Patient counseled on risks, benefits, and alternatives of treatment plan at length. Patient states an understanding and willingness to proceed with plan. Thank you for the opportunity to care for your patient, please don't hesitate to contact me for any questions or concerns you may have. Serafin Quijano PA-S I personally supervised the care of this patient by the PA student above and agree with Assessment and Plan. 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 documented in this encounter [facility] 09-14-2023 Plan of care note The patient is Moderately Stable - Low risk of patient condition declining or worsening The patient's goals for the shift include pain management The clinical goals for the shift include monitor vital signs Over the shift, the patient did not make progress toward the following goals. Barriers to progression include education. Recommendations to address these barriers include reinforcement. [facility] 09-14-2023 Plan of care note Problem: Elimination Goal: Elimination patterns are normal or improving Outcome: Not Progressing Problem: Knowledge Deficit Goal: Patient/family/caregiver demonstrates understanding of disease process, treatment plan, medications, and discharge instructions Outcome: Progressing Problem: Insufficient Fluid Volume Goal: Fluid and electrolyte balance are achieved/maintained Outcome: Progressing Problem: Insufficient Nutritional Intake Goal: Patient's nutritional intake is adequate Outcome: Progressing Goal: Mobility/activity is maintained at optimum level for patient Outcome: Progressing Problem: Inadequate Coping Goal: Demonstrates ability to cope effectively Outcome: Progressing Goal: Verbalizes adaptive coping mechanisms Outcome: Progressing Goal: Verbalizes personal strengths Outcome: Progressing Problem: Hemodynamic Status Goal: Patient's vitals signs are stable Outcome: Progressing Problem: Discharge Barriers Goal: My discharge needs are met Outcome: Progressing Problem: Pain - Adult Goal: Verbalizes/displays adequate comfort level or baseline comfort level Outcome: Progressing Problem: Safety - Adult Goal: Free from fall injury Outcome: Progressing Problem: Discharge Planning Goal: Discharge to home or other facility with appropriate resources Outcome: Progressing Problem: Chronic Conditions and Co-morbidities Goal: Patient's chronic conditions and co-morbidity symptoms are monitored and maintained or improved Outcome: Progressing The patient is Moderately Stable - Low risk of patient condition declining or worsening The patient's goals for the shift include The clinical goals for the shift include no pain, able to rest Over the shift, the patient did not make progress toward the following goals. Barriers to progression include pain. Recommendations to address these barriers include pain management. Problem: Elimination Goal: Elimination patterns are normal or improving Outcome: Not Progressing [facility] 09-13-2023 History and physical note Images from the original note were not included. History and Physical [facility] : 1985 AGE 38 y.o. YEARS Note Date 09/13/2023 Primary Care Physician:No primary care provider on file. Phone None Fax None Current Providers as of 09/13/2023 PCP: not found Referring Provider: not found, starting on TueSep 13, 2023 12:00 AM Admitting Provider: Chad Boss DO, (Active) Attending Provider: Celina Hendrix MD, starting on TueSep 13, 2023 11:21 AM, ending on TueSep 13, 2023 7:24 PM (Inactive) Attending Provider: Chad oBss DO, starting on TueSep 13, 2023 2:47 PM (Active) Registered Nurse: Moira Galeano RN, starting on TueSep 13, 2023 11:12 AM, ending on TueSep 13, 2023 7:10 PM (Inactive) Consulting Physician: Chad Boss DO, starting on TueSep 13, 2023 2:47 PM (Active) Registered Nurse: Cassi Hernandes RN, starting on TueSep 13, 2023 7:37 PM (Active) Chief Complaint: Abdominal Pain (Pt right sided abdominal pain. States has large hernia. LBM was last night. C/o nausea.) HPI: Abd pain started at 2:30 am She has pain in lower right sided of abd right lower portion of her ventral hernia - she has existing large ventral hernia She then had nausea and vomiting, After the pain started This is when she presented to the emergency room I discussed with the emergency room the need for admission. She has had this happen a few times in the past. She has been trying to get her hernia repaired she was working with [facility] and trying to lose weight prior to surgery Currently when I see her pain is improved but she was recently medicated She does not have active nausea and vomiting. Review of Systems: General: Skin: HEENT: Cardiovascular Fever n Rashes n Difficulty chewing n Chest Pain n Chills n Sores n Appetite Loss n Chest Pressure n Fatigue n Epistaxis n Orthopnea n Sweats n Hearing loss n Palpitations GI: Tinnitus GERD Vision quality RESP: Abdominal Pain y : SOB/VALDEZ n Nausea y Hematuria n Cough n Vomiting y Dysuria n Productive/Sputum n Hematemesis n NEURO: Urgency n Hemoptysis n Diarrhea Headaches n Frequency n Wheezing n Constipation n Seizures n Times at night urinating n Heamatochezia She noticed some blood in her stool a few times Neuropathy n catheter present n MSK: Melena Focal weakness n Hesitancy n Focal Numbness n Incontinence Acute joint pain n Dizzy/Vertigo n Redness n Difficulty speaking n Heme/Lymph Swelling n Difficulty walking n Lymphadenopathy Myalgia n Ataxia Chronic joint pain Past Medical History: Diagnosis Date Anxiety Bipolar affective (HCC) Depression Past Surgical History: Procedure Laterality Date APPENDECTOMY CHOLECYSTECTOMY HERNIA REPAIR OTHER SURGICAL HISTORY JANEL-EN-Y W/GASTROENTEROS TONSILLECTOMY She also reports a lot of hernia repairs and revisions At [facility] and at [facility] as well as other hospitals Allergies Allergen Reactions Ketorolac Hives and Shortness of breath Other reaction(s): Hives Ondansetron Shortness of breath and Hives Other reaction(s): Hives, Respiratory distress Medications Prior to Admission: Current Outpatient Medications Medication Instructions busPIRone (BUSPAR) 30 mg, Oral, 2 times daily FLUoxetine (PROZAC) 80 mg, Oral, Daily guanFACINE (Intuniv) 1 mg 24 hr tablet 1 tablet, Oral, Nightly No current facility-administered medications for this encounter. Social History Social History Tobacco Use Smoking status: Never Smokeless tobacco: Never Substance Use Topics Alcohol use: Not on file Family History No family history on file. Physical Exam Temp (24hrs), Av.1 C (97 F), Min:36.1 C (97 F), Max:36.1 C (97 F) Body mass index is 40.91 kg/m .BMI Classification: Morbidly Obese (>40.0) BP 130/71 Pulse 58 Temp 36.1 C (97 F) (Temporal) Resp 18 Ht 5' 5 (1.651 m) Wt 245 lb 13 oz (112 kg) SpO2 99% BMI 40.91 kg/m Pulse Ox: SpO2 Av.5 % Min: 98 % Max: 99 % Supplemental O2: General appearance: She is resting in bed when I enter the room she is alert answering questions well HEENT: Normal cephalic, atraumatic without obvious deformity. Pupils equal, round, and reactive to light. Extra ocular muscles intact. Conjunctivae/corneas clear. Neck: Supple, with full range of motion. No jugular venous distention. Trachea midline. No lymphadenopathy. Respiratory: Normal respiratory effort. Clear to auscultation, bilaterally without Rales/Wheezes/Rhonchi. Cardiovascular: Regular rate and rhythm with normal S1/S2 without murmurs, rubs or gallops. Abdomen: She has a large distended ventral hernia somewhat more to the right side her abdomen. There is no particular areas of exquisite pain or discoloration or redness but is soft and reducible Musculoskeletal: No clubbing, cyanosis or edema bilaterally. Full range of motion without deformity. Skin: Skin color, texture, turgor normal. No rashes or lesions. Neurologic: Neurovascularly intact without any focal sensory/motor deficits. Cranial nerves grossly intact. Labs Admission on 09/13/2023 Component Date Value LIPASE 09/13/2023 368 (H) MAGNESIUM 09/13/2023 2.0 SODIUM 09/13/2023 135 POTASSIUM 09/13/2023 4.1 CHLORIDE 09/13/2023 105 CARBON DIOXIDE 09/13/2023 23 ANION GAP 09/13/2023 7 UREA NITROGEN 09/13/2023 6 (L) CREATININE 09/13/2023 0.48 (L) GLUCOSE 09/13/2023 130 (H) CALCIUM 09/13/2023 8.7 AST (SGOT) 09/13/2023 16 ALT 09/13/2023 17 ALKALINE PHOSPHATASE 09/13/2023 46 ALBUMIN 09/13/2023 4.5 BILIRUBIN, TOTAL 09/13/2023 0.3 TOTAL PROTEIN 09/13/2023 7.1 eGFR 09/13/2023 >90.0 Auto WBC 09/13/2023 10.2 RBC 09/13/2023 4.49 Hemoglobin 09/13/2023 14.1 Hematocrit 09/13/2023 42.8 MCV 09/13/2023 95.3 MCH 09/13/2023 31.4 MCHC 09/13/2023 32.9 RDW 09/13/2023 12.5 Platelets 09/13/2023 308 MPV 09/13/2023 8.7 Neutrophils Relative 09/13/2023 73.8 Lymphocytes Relative 09/13/2023 19.5 (L) Monocytes Relative 09/13/2023 4.5 Eosinophils Relative 09/13/2023 1.6 Basophils Relative 09/13/2023 0.3 Immature Grans % 09/13/2023 0.3 (H) Neutrophils Absolute 09/13/2023 7.5 (H) Lymphocytes Absolute 09/13/2023 2.0 Monocytes Absolute 09/13/2023 0.5 Eosinophils Absolute 09/13/2023 0.2 Basophils Absolute 09/13/2023 0.0 Immature Grans Absolute 09/13/2023 0.0 HCG,URINE QUAL 09/13/2023 Negative Color, Urine 09/13/2023 Yellow Clarity, Urine 09/13/2023 Turbid (A) pH, Urine 09/13/2023 6.5 Leukocytes, Urine 09/13/2023 Negative Nitrite, Urine 09/13/2023 Negative Protein, Urine 09/13/2023 Negative Glucose, Urine 09/13/2023 Normal Bilirubin, Urine 09/13/2023 Negative Ketones, Urine 09/13/2023 Negative Urobilinogen, Urine 09/13/2023 Normal Blood, Urine 09/13/2023 Negative SPECIFIC GRAVITY OF URIN* 09/13/2023 1.014 LACTIC ACID 09/13/2023 1.5 EKG Assessment/Plan and Medical Decision Making Right sided abd pain She reports that she has numerous abdominal surgeries in the past has a large ventral hernia Imaging at outside emergency room did show dilation of small bowel Possible she had an early small bowel obstruction versus ileus Currently we will admit supply IV fluids pain and nausea control We will check KUB in the morning asked for surgical evaluation Vitals are currently stable and lactic acid on admission was normal H/o anxiety and bipolar I will continue her home medications Elevated lipase She has a slightly elevated lipase at 368. CAT scan of abdomen pelvis did not mention any pancreatic inflammation At this level the lipase could be elevated due to her nausea and vomiting. We will repeat lipase in the morning to make sure trending in the right direction Pain nausea control and IV fluids have been ordered -DVT prophylaxis: [x] Lovenox [] Heparin [] SCDs [x] Encourage ambulation [] Already on Anticoagulation [] Pharmocologic prophylaxis on hold to due risk bleed/procedure 09/13/2023 Mel Duke [id number] Any scheduled follow up appointments Extended Emergency Contact Information Primary Emergency Contact: Stephanie Hernandes/[place] Relation: Child Portions of this note may be electronically transcribed. Please forward a copy of this H&P to the primary care physician. [employer] Work Phone: 09-13-2023 History and physical note Images from the original note were not included. History and Physical [facility] Mel Duke : 1985 AGE 38 y.o. YEARS Note Date 09/13/2023 Primary Care Physician:No primary care provider on file. Phone None Fax None Current Providers as of 09/13/2023 PCP: not found Referring Provider: not found, starting on TueSep 13, 2023 12:00 AM Admitting Provider: Chad Boss DO, (Active) Attending Provider: Celina Hendrix MD, starting on TueSep 13, 2023 11:21 AM, ending on TueSep 13, 2023 7:24 PM (Inactive) Attending Provider: Chad Boss DO, starting on TueSep 13, 2023 2:47 PM (Active) Registered Nurse: Moira Galeano RN, starting on TueSep 13, 2023 11:12 AM, ending on TueSep 13, 2023 7:10 PM (Inactive) Consulting Physician: Chad Boss DO, starting on TueSep 13, 2023 2:47 PM (Active) Registered Nurse: Cassi Hernandes RN, starting on TueSep 13, 2023 7:37 PM (Active) Chief Complaint: Abdominal Pain (Pt right sided abdominal pain. States has large hernia. LBM was last night. C/o nausea.) HPI: Abd pain started at 2:30 am She has pain in lower right sided of abd right lower portion of her ventral hernia - she has existing large ventral hernia She then had nausea and vomiting, After the pain started This is when she presented to the emergency room I discussed with the emergency room the need for admission. She has had this happen a few times in the past. She has been trying to get her hernia repaired she was working with [facility] and trying to lose weight prior to surgery Currently when I see her pain is improved but she was recently medicated She does not have active nausea and vomiting. Review of Systems: General: Skin: HEENT: Cardiovascular Fever n Rashes n Difficulty chewing n Chest Pain n Chills n Sores n Appetite Loss n Chest Pressure n Fatigue n Epistaxis n Orthopnea n Sweats n Hearing loss n Palpitations GI: Tinnitus GERD Vision quality RESP: Abdominal Pain y : SOB/VALDEZ n Nausea y Hematuria n Cough n Vomiting y Dysuria n Productive/Sputum n Hematemesis n NEURO: Urgency n Hemoptysis n Diarrhea Headaches n Frequency n Wheezing n Constipation n Seizures n Times at night urinating n Heamatochezia She noticed some blood in her stool a few times Neuropathy n catheter present n MSK: Melena Focal weakness n Hesitancy n Focal Numbness n Incontinence Acute joint pain n Dizzy/Vertigo n Redness n Difficulty speaking n Heme/Lymph Swelling n Difficulty walking n Lymphadenopathy Myalgia n Ataxia Chronic joint pain Past Medical History: Diagnosis Date Anxiety Bipolar affective (HCC) Depression Past Surgical History: Procedure Laterality Date APPENDECTOMY CHOLECYSTECTOMY HERNIA REPAIR OTHER SURGICAL HISTORY JANEL-EN-Y W/GASTROENTEROS TONSILLECTOMY She also reports a lot of hernia repairs and revisions At [facility] and at [facility] as well as other hospitals Allergies Allergen Reactions Ketorolac Hives and Shortness of breath Other reaction(s): Hives Ondansetron Shortness of breath and Hives Other reaction(s): Hives, Respiratory distress Medications Prior to Admission: Current Outpatient Medications Medication Instructions busPIRone (BUSPAR) 30 mg, Oral, 2 times daily FLUoxetine (PROZAC) 80 mg, Oral, Daily guanFACINE (Intuniv) 1 mg 24 hr tablet 1 tablet, Oral, Nightly No current facility-administered medications for this encounter. Social History Social History Tobacco Use Smoking status: Never Smokeless tobacco: Never Substance Use Topics Alcohol use: Not on file Family History No family history on file. Physical Exam Temp (24hrs), Av.1 C (97 F), Min:36.1 C (97 F), Max:36.1 C (97 F) Body mass index is 40.91 kg/m .BMI Classification: Morbidly Obese (>40.0) BP 130/71 Pulse 58 Temp 36.1 C (97 F) (Temporal) Resp 18 Ht 5' 5 (1.651 m) Wt 245 lb 13 oz (112 kg) SpO2 99% BMI 40.91 kg/m Pulse Ox: SpO2 Av.5 % Min: 98 % Max: 99 % Supplemental O2: General appearance: She is resting in bed when I enter the room she is alert answering questions well HEENT: Normal cephalic, atraumatic without obvious deformity. Pupils equal, round, and reactive to light. Extra ocular muscles intact. Conjunctivae/corneas clear. Neck: Supple, with full range of motion. No jugular venous distention. Trachea midline. No lymphadenopathy. Respiratory: Normal respiratory effort. Clear to auscultation, bilaterally without Rales/Wheezes/Rhonchi. Cardiovascular: Regular rate and rhythm with normal S1/S2 without murmurs, rubs or gallops. Abdomen: She has a large distended ventral hernia somewhat more to the right side her abdomen. There is no particular areas of exquisite pain or discoloration or redness but is soft and reducible Musculoskeletal: No clubbing, cyanosis or edema bilaterally. Full range of motion without deformity. Skin: Skin color, texture, turgor normal. No rashes or lesions. Neurologic: Neurovascularly intact without any focal sensory/motor deficits. Cranial nerves grossly intact. Labs Admission on 09/13/2023 Component Date Value LIPASE 09/13/2023 368 (H) MAGNESIUM 09/13/2023 2.0 SODIUM 09/13/2023 135 POTASSIUM 09/13/2023 4.1 CHLORIDE 09/13/2023 105 CARBON DIOXIDE 09/13/2023 23 ANION GAP 09/13/2023 7 UREA NITROGEN 09/13/2023 6 (L) CREATININE 09/13/2023 0.48 (L) GLUCOSE 09/13/2023 130 (H) CALCIUM 09/13/2023 8.7 AST (SGOT) 09/13/2023 16 ALT 09/13/2023 17 ALKALINE PHOSPHATASE 09/13/2023 46 ALBUMIN 09/13/2023 4.5 BILIRUBIN, TOTAL 09/13/2023 0.3 TOTAL PROTEIN 09/13/2023 7.1 eGFR 09/13/2023 >90.0 Auto WBC 09/13/2023 10.2 RBC 09/13/2023 4.49 Hemoglobin 09/13/2023 14.1 Hematocrit 09/13/2023 42.8 MCV 09/13/2023 95.3 MCH 09/13/2023 31.4 MCHC 09/13/2023 32.9 RDW 09/13/2023 12.5 Platelets 09/13/2023 308 MPV 09/13/2023 8.7 Neutrophils Relative 09/13/2023 73.8 Lymphocytes Relative 09/13/2023 19.5 (L) Monocytes Relative 09/13/2023 4.5 Eosinophils Relative 09/13/2023 1.6 Basophils Relative 09/13/2023 0.3 Immature Grans % 09/13/2023 0.3 (H) Neutrophils Absolute 09/13/2023 7.5 (H) Lymphocytes Absolute 09/13/2023 2.0 Monocytes Absolute 09/13/2023 0.5 Eosinophils Absolute 09/13/2023 0.2 Basophils Absolute 09/13/2023 0.0 Immature Grans Absolute 09/13/2023 0.0 HCG,URINE QUAL 09/13/2023 Negative Color, Urine 09/13/2023 Yellow Clarity, Urine 09/13/2023 Turbid (A) pH, Urine 09/13/2023 6.5 Leukocytes, Urine 09/13/2023 Negative Nitrite, Urine 09/13/2023 Negative Protein, Urine 09/13/2023 Negative Glucose, Urine 09/13/2023 Normal Bilirubin, Urine 09/13/2023 Negative Ketones, Urine 09/13/2023 Negative Urobilinogen, Urine 09/13/2023 Normal Blood, Urine 09/13/2023 Negative SPECIFIC GRAVITY OF URIN* 09/13/2023 1.014 LACTIC ACID 09/13/2023 1.5 EKG Assessment/Plan and Medical Decision Making Right sided abd pain She reports that she has numerous abdominal surgeries in the past has a large ventral hernia Imaging at outside emergency room did show dilation of small bowel Possible she had an early small bowel obstruction versus ileus Currently we will admit supply IV fluids pain and nausea control We will check KUB in the morning asked for surgical evaluation Vitals are currently stable and lactic acid on admission was normal H/o anxiety and bipolar I will continue her home medications Elevated lipase She has a slightly elevated lipase at 368. CAT scan of abdomen pelvis did not mention any pancreatic inflammation At this level the lipase could be elevated due to her nausea and vomiting. We will repeat lipase in the morning to make sure trending in the right direction Pain nausea control and IV fluids have been ordered -DVT prophylaxis: [x] Lovenox [] Heparin [] SCDs [x] Encourage ambulation [] Already on Anticoagulation [] Pharmocologic prophylaxis on hold to due risk bleed/procedure 09/13/2023 Mel Duke [id number] Any scheduled follow up appointments Extended Emergency Contact Information Primary Emergency Contact: Stephanie Hernandes/[place] Relation: Child Portions of this note may be electronically transcribed. Please forward a copy of this H&P to the primary care physician. documented in this encounter [facility] 09-13-2023 Emergency department Note Report given to opal Seha [facility]. Pt then transferred via cart in satisfactory condition. IV site without redness or edema. Moira Galeano RN 09/13/231855 [facility] 09-13-2023 Emergency department Note Report given to opal Shea with [facility]. Pt then transferred via cart in satisfactory condition. IV site without redness or edema. Moira Galeano RN 09/13/231855 Report called to MARIE Mora at [facility]. Pt to go to room #268. RN aware of ambulance ETA ~1830 Moira Galeano RN 09/13/23 170 Pt c/o abdominal pain 05/19 and requesting pain medication. Dr. Hendrix notified Moira Galeano RN 09/13/23 1649 Pt requesting pain medsmd notified Radha Parish, EMT 09/13/23 1531 [facility] paged JAZZY Burr 09/13/23 1427 No needs at this time per pt and guest at bedside. Jacky De La Cruz RN 09/13/[address] trailer via wheelchair for CT abdomen Moira Galeano RN 09/13/23 1300 documented in this encounter [facility] 09-13-2023 Emergency department Note Report called to MARIE Mora at [facility]. Pt to go to room #268. RN aware of ambulance ETA ~1830 Moira Galeano RN 09/13/23 170 [facility] 09-13-2023 Emergency department Note Pt c/o abdominal pain 05/19 and requesting pain medication[address] Dr. Hendrix notified Moira Galeano RN 09/13/23 1649 [facility] 09-13-2023 Emergency department Note Pt requesting pain medsmd notified Radha Parish, EMT 09/13/23 1531 [facility] 09-13-2023 Emergency department Note [facility] [place] paged JAZZY Burr 09/13/23 1427 [facility] 09-13-2023 Emergency department Note No needs at this time per pt and guest at bedside. Jacky De La Cruz RN 09/13/23 1410 [facility] 09-13-2023 Emergency department Note Pt to CT trailer via wheelchair for CT abdomen Moira Galeano RN 09/13/23 1300 [facility] 08-31-2023 Note HNO ID: [id number] Author: Sally Gonzalez APRN.[employer] Service: ? Author Type: Nurse Practitioner Type: Progress Notes Filed: 08/31/2023 1:39 PM Note Text: FOLLOW UP - PSYCHIATRIC PROGRESS NOTE Visit Type:Virtual Visit utilizing two-way audio and video for at least a portion of the visit. Consent for virtual visit obtained verbally. Confidentiality limitations with virtual visits reviewed with the patient and guardian, if present, who have accepted the risk verbally prior to proceeding with encounter. I have communicated my name and active licensure. The patient's identity and physical location were verified at the time of this visit. Either the patient or their legal loan representative has been informed of the risks and benefits of -- and alternatives to -- treatment through a remote evaluation and consents to proceed with the evaluation remotely. Reason for Visit: Outpatient follow-up and safety monitoring of previously prescribed psychiatric medication, psychotherapy or other treatment CC: Follow up regarding her panic disorder HPI: Treatment Plan from last appointment on 11/23/2022: Increase Prozac to address her anxiety and OCD symptoms. Continue Buspar at the same dose. Schedule an appointment for trauma focused and EMDR therapy. Follow up in 6 weeks. 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 She is going to be having hernia surgery in September. She decided not to do weight loss surgery as she has been able to lose weight on her own. She has been taking Prozac at 80 mg as she didn't want run out. She has been taking this dose instead of 100 for the past 3 weeks. Notices that on 80 mg her anxiety gets more prominent during the evening and night time. Taking Buspar twice daily. Helping without any side effects. 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 She has to walk around more. She has been diagnosed with ADHD when she was younger. The stimulants such has Adderall have increased her anxiety significantly. She is open to other medications to help manage these symptoms. Discussed incorporating Intuniv. She has not been able to start working with a therapist. She is worried about talking about her trauma history and that keeps preventing her from looking into therapy. She has been working on reframing her negative thoughts to positive thoughts. Denies any psychosocial stress. Looking forward to spending the holidays with her family. Planning on going to the movies with her daughter. Risks and benefits of the medication, including any black box warnings, were discussed with the patient. Interval Progress: Slightly worse PATIENT DATA: Generalized Anxiety Disorder Scale (JADEN-7) JADEN - 7 SCORES 11/23/2022 07/21/2023 08/29/2023 JADEN-7 Score 21 21 21 (0-4) minimal anxiety, (5-9) mild anxiety, (10-14) moderate anxiety, (15-21) severe anxiety Patient Health Questionnaire (PHQ-9) PHQ-9 11/23/2022 07/21/2023 08/29/2023 Score 18 11 19 (0-4) minimal depression, (5-9) mild depression, (10-14) moderate depression, (15-19) moderately severe depression, (20-27) severe depression PROMIS Global Health PROMIS Global Health - (T-Scores - the mean of general population = 50. Five points is a clinically meaningful difference.) 08/17/2022 11/23/2022 07/21/2023 Physical T-Score 47.7 37.4 42.3 Mental T-Score 31.3 38.8 33.8 PAST MEDICAL HISTORY Diagnosis Date Abdominal wall mass of left lower quadrant 07/24/2013 Scar tissue with abscess. Resolved Anxiety Bipolar 1 disorder (HCC) Chronic pain syndrome 08/06/2019 Seeing [facility]: Dr. Moore Depression Headache(784.0) 10/18/2013 Obesity, Class III, BMI 40-49.9 (morbid obesity) (HCC) 01/24/2018 Panic disorder 11/05/[address] Dukes Social phobia 11/05/2014 Ventral hernia 12/21/2019 PAST SURGICAL HISTORY Procedure Laterality Date APPENDECTOMY HX 2007 DELIVERY ONLY ,, COLONOSCOPY 2007 EXC TUMOR SOFT TISSUE ABDOMINAL WALL SUBQ 3+CM 08/02/13 LLQ prior incision, stitch granuloma/chronic abscess INCISION AND DRAINAGE COMPLEX PO WOUND INFECTION 08/09/13 LAPS SURG CHOLECYSTECTOMY W/CHOLANGIOGRAPHY 03-08-07 PAST SURGICAL HISTORY OF hernia repair x6 PAST SURGICAL HISTORY OF 06/10/2019 Open lysis of adhesions JANEL-EN-Y W/GASTROENTEROS 10/23/2008 Division of the duodenum with Janel-en-Y duodenojejunostomy - op note describes a duodenal switch procedure TUBAL LIGATION, Current Outpatient Medications Medication Sig Dispense Refill prochlorperazine (COMPAZINE) 5 mg tablet Take 2 tablets by mouth every 6 hours as needed. 16 tablet 0 oxyCODONE IR (ROXICODONE) 5 mg immediate release tablet Take 1 tablet by mouth every 6 hours as needed for pain. 12 tablet 0 busPIRone HCl 30 mg tablet Take 30 mg by mouth twice daily. FLUoxetine (PROZAC) 40 mg capsule Take 2 capsule (more content not included)... [facility] 08-31-2023 History of Present illness Narrative FOLLOW UP - PSYCHIATRIC PROGRESS NOTE Visit Type:Virtual Visit utilizing two-way audio and video for at least a portion of the visit. Consent for virtual visit obtained verbally. Confidentiality limitations with virtual visits reviewed with the patient and guardian, if present, who have accepted the risk verbally prior to proceeding with encounter. I have communicated my name and active licensure. The patient's identity and physical location were verified at the time of this visit. Either the patient or their legal loan representative has been informed of the risks and benefits of -- and alternatives to -- treatment through a remote evaluation and consents to proceed with the evaluation remotely. Reason for Visit: Outpatient follow-up and safety monitoring of previously prescribed psychiatric medication, psychotherapy or other treatment CC: Follow up regarding her panic disorder HPI: Treatment Plan from last appointment on 11/23/2022: Increase Prozac to address her anxiety and OCD symptoms. Continue Buspar at the same dose. Schedule an appointment for trauma focused and EMDR therapy. Follow up in 6 weeks. 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 She is going to be having hernia surgery in September. She decided not to do weight loss surgery as she has been able to lose weight on her own. She has been taking Prozac at 80 mg as she didn't want run out. She has been taking this dose instead of 100 for the past 3 weeks. Notices that on 80 mg her anxiety gets more prominent during the evening and night time. Taking Buspar twice daily. Helping without any side effects. 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 She has to walk around more. She has been diagnosed with ADHD when she was younger. The stimulants such has Adderall have increased her anxiety significantly. She is open to other medications to help manage these symptoms. Discussed incorporating Intuniv. She has not been able to start working with a therapist. She is worried about talking about her trauma history and that keeps preventing her from looking into therapy. She has been working on reframing her negative thoughts to positive thoughts. Denies any psychosocial stress. Looking forward to spending the holidays with her family. Planning on going to the movies with her daughter. Risks and benefits of the medication, including any black box warnings, were discussed with the patient. Interval Progress: Slightly worse PATIENT DATA: Generalized Anxiety Disorder Scale (JADEN-7) JADEN - 7 SCORES 11/23/2022 07/21/2023 08/29/2023 JADNE-7 Score 21 21 21 (0-4) minimal anxiety, (5-9) mild anxiety, (10-14) moderate anxiety, (15-21) severe anxiety Patient Health Questionnaire (PHQ-9) PHQ-9 11/23/2022 07/21/2023 08/29/2023 Score 18 11 19 (0-4) minimal depression, (5-9) mild depression, (10-14) moderate depression, (15-19) moderately severe depression, (20-27) severe depression PROMIS Global Health PROMIS Global Health - (T-Scores - the mean of general population = 50. Five points is a clinically meaningful difference.) 08/17/2022 11/23/2022 07/21/2023 Physical T-Score 47.7 37.4 42.3 Mental T-Score 31.3 38.8 33.8 PAST MEDICAL HISTORY Diagnosis Date Abdominal wall mass of left lower quadrant 07/24/2013 Scar tissue with abscess. Resolved Anxiety Bipolar 1 disorder (HCC) Chronic pain syndrome 08/06/2019 Seeing [facility]: Dr. Moore Depression Headache(784.0) 10/18/2013 Obesity, Class III, BMI 40-49.9 (morbid obesity) (HCC) 01/24/2018 Panic disorder 11/05/[address] Dukes Social phobia 11/05/2014 Ventral hernia 12/21/2019 PAST SURGICAL HISTORY Procedure Laterality Date APPENDECTOMY HX 2007 DELIVERY ONLY ,, COLONOSCOPY 2007 EXC TUMOR SOFT TISSUE ABDOMINAL WALL SUBQ 3+CM 08/02/13 LLQ prior incision, stitch granuloma/chronic abscess INCISION & DRAINAGE COMPLEX PO WOUND INFECTION 08/09/13 LAPS SURG CHOLECYSTECTOMY W/CHOLANGIOGRAPHY 03-08-07 PAST SURGICAL HISTORY OF hernia repair x6 PAST SURGICAL HISTORY OF 06/10/2019 Open lysis of adhesions JANEL-EN-Y W/GASTROENTEROS 10/23/2008 Division of the duodenum with Janel-en-Y duodenojejunostomy - op note describes a duodenal switch procedure TUBAL LIGATION, Current Outpatient Medications Medication Sig Dispense Refill prochlorperazine (COMPAZINE) 5 mg tablet Take 2 tablets by mouth every 6 hours as needed. 16 tablet 0 oxyCODONE IR (ROXICODONE) 5 mg immediate release tablet Take 1 tablet by mouth every 6 hours as needed for pain. 12 tablet 0 busPIRone HCl 30 mg tablet Take 30 mg by mouth twice daily. FLUoxetine (PROZAC) 40 mg capsule Take 2 capsules by mouth once daily. Take with 20 mg dose. (Patient taking differently: Take 80 mg by mouth once daily. Take with 1 capsule of fluoxetine 20mg for a total of 100mg daily in the morning) 60 capsule 1 FLUoxetine (PROZAC) 20 mg capsule Take 1 capsule by mouth once daily. Take with 2 capsules of the 40 mg dose. (Patient taking differently: Take 20 mg by mouth once daily. Take with 2 capsules of fluoxetine 40mg for a total of 100mg daily in the morning) 30 capsule 1 No current facility-administered medications for this visit. ROS: See HPI PFSH: See HPI VITAL SIGNS: There were no vitals filed for this visit. 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 FUND OF KNOWLEDGE : Appropriate and Adequate SUICIDE: None HOMICIDE: None DATA REVIEWED: Psychiatric scales and Electronic medical record DIAGNOSIS: PRIMARY: OCD Secondary : ADHD, combined type Other : Panic disorder with agoraphobia Chronic PTSD MDD, recurrent, in partial remission GAF: -60-51 Moderate symptoms or moderate difficulty in social, occupational or school functioning. TREATMENT PLAN: 1. Start Intuniv to address ADHD symptoms. 2. Continue Prozac and Buspar at the same dose. 3. Encouraged patient to schedule an appointment for individual psychotherapy and EMDR. MEDICATION CHANGES: - Start Intuniv 1 mg. Follow Up: 4 weeks I spent a total of 38 minutes on the date of the service which included preparing to see the patient, [id number] patient care, completing clinical documentation, obtaining and/or reviewing separately obtained history, counseling and educating the patient/family/caregiver, ordering medications, tests, or procedures, communicating with other HCPs (not separately reported), independently interpreting results (not separately reported), and communicating results to the patient/family/caregiver. ADD ON PSYCHOTHERAPY CODE : No SIGNATURE: Sally Gonzalez APRN.MAHENDRA PATIENT NAME: Mel Wall DATE: August 31, 2023 TIME: 12:56 PM documented in this encounter [facility] 08-29-2023 Telephone encounter Note Message to call office for Prozac dosage clarification. [facility] 08-29-2023 Miscellaneous Notes Message to call office for Prozac dosage clarification. Patient has been identified by name and date of : Yes, Provider Date 08/29/23 Time 12:36p Patient phones for refill(s): Requested Prescriptions Pending Prescriptions Disp Refills FLUoxetine (PROZAC) 40 mg capsule 60 capsule 1 Sig: Take 2 capsules by mouth once daily. Take with 20 mg dose. FLUoxetine (PROZAC) 20 mg capsule 30 capsule 1 Sig: Take 1 capsule by mouth once daily. Take with 2 capsules of the 40 mg dose. busPIRone HCl 30 mg tablet Sig: Take 1 tablet by mouth two times a day. Date of last office visit in primary care: 06/03/2021 Date of next office visit in primary care: Visit date not found *scheduled with Sally on 08/31/23 at 1pm Last 2 Encounter Wt Readings: Date: Wt: 03/09/2023 117.9 kg (260 lb) 03/09/2023 102.1 kg (225 lb) Previous labs/tests for medication: Not applicable Please advise. Thank you. Markus Pretty. documented in this encounter [facility] 08-29-2023 Telephone encounter Note Patient has been identified by name and date of : Yes, Provider Date 08/29/23 Time 12:36p Patient phones for refill(s): Requested Prescriptions Pending Prescriptions Disp Refills FLUoxetine (PROZAC) 40 mg capsule 60 capsule 1 Sig: Take 2 capsules by mouth once daily. Take with 20 mg dose. FLUoxetine (PROZAC) 20 mg capsule 30 capsule 1 Sig: Take 1 capsule by mouth once daily. Take with 2 capsules of the 40 mg dose. busPIRone HCl 30 mg tablet Sig: Take 1 tablet by mouth two times a day. Date of last office visit in primary care: 06/03/2021 Date of next office visit in primary care: Visit date not found *scheduled with Sally on 08/31/23 at 1pm Last 2 Encounter Wt Readings: Date: Wt: 03/09/2023 117.9 kg (260 lb) 03/09/2023 102.1 kg (225 lb) Previous labs/tests for medication: Not applicable Please advise. Thank you. Markus Pretty. [facility] 07-25-2023 Note HNO ID: [id number] Author: Sally Gonzalez APRN.MAHENDRA Service: ? Author Type: Nurse Practitioner Type: Progress Notes Filed: 07/25/2023 5:38 PM Note Text: Patient did not log in for her virtual visit with the provider today. She did not answer her phone when she was contacted prior to the appointment time. [facility] 07-25-2023 History of Present illness Narrative Patient did not log in for her virtual visit with the provider today. She did not answer her phone when she was contacted prior to the appointment time. documented in this encounter [facility] 06-30-2023 History of Present illness Narrative Pt is being dc'ed home per MD order in stable condition. Pt given and explained DC orders. Pt states understanding DC orders. All questions answered. Pt declined need for a wheelchair [facility]. Pt is going home. Images from the original note were not included. General Surgery Progress Note S: Increased pain yesterday but vitals and labs remain normal and AXR without evidence for obstruction. Feeling a bit better this morning. Continues to pass flatus and have bowel movements. O: Blood pressure 107/63, pulse 78, temperature 97.3 F (36.3 C), temperature source Oral, resp. rate 16, height 1.651 m (5' 5), weight 111.1 kg (245 lb), SpO2 99 %. I/O last 3 completed shifts: In: 1724.5 [P.O.:300; I.V.:1424.5] Out: 3600 [Urine:3600] PE: Gen: NAD, resting comfortably Lungs: no respiratory distress Abd: soft, large fascial defect, easily reducible hernia, mild tenderness to palpation, no rebound/guarding Ext: warm, no edema Labs: WBC/Hgb/Hct/Plts: 5.81/12.1/37.4/217 (06/30 316) Na/K+/Phos/Mg/Ca: 136/4.3/3.3/1.7/-- (06/30 316) Bun/Creat/Cl/CO2/Glucose: 4/0.47/108/21/89 (06/30 316) A/P: Mel Wall is a 37 y.o. female w/ an incisional hernia who presented with abdominal pain and nausea with concern for SBO - Advance to regular diet - Discontinue IVF - Scheduled Tylenol and Flexeril, PRN oxycodone, lidocaine patch - Discharge later today if pain controlled and tolerating a regular diet Lou Sosa MD [facility] GI Surgery Attending Attestation: I saw and independently examined Ms. Wall today. I discussed my findings and the therapeutic plan with the resident/fellow. I agree with the resident's/fellow's history, physical examination, and medical decisions as outlined. Had some pain yesterday afternoon which she describes as a spasm. Improved with flexeril. Benign abdomen, passing flatus and having BMs Advance diet again Hopefully DC today and follow up w Dr. Koehler in clinic to discuss operative repair Susan Medina MD Focused Assessment for Discharge Planning Mel Wall is a 37 y.o. female w/ an incisional hernia who presented with abdominal pain and nausea with concern for SBO. Advanced Care Planning Assessment HCPOA Agent(s): 1. n/a 2. n/a Legal Next of Kin: 1. Gerda Hernandes, spouse 2. n/a Financial Resources Insurance: Yes Prescription Coverage: Yes Resources Needed: No Resources Provided: Living Environment and Support System mobile home Patient Resources Prior to Admission Post-acute Services: no Community Resources: no DME: no Patient's goal for discharge is home. Patient will discharge to home when she's medically stable, tolerating a diet and having normal bowel function. Yossi Potter RN, BSN, ACM Clinical Youth Minister General Surgery Progress Note S: Arrived to the floor in stable condition. Had a large BM and passing flatus. Endorsing pain related to the hernia but denies other complaints. O: Blood pressure 119/68, pulse 63, temperature 97.6 F (36.4 C), temperature source Axillary, resp. rate 16, height 1.651 m (5' 5), weight 111.1 kg (245 lb), SpO2 99 %. I/O last 3 completed shifts: In: 2808.8 [I.V.:2808.8] Out: 375 [Urine:375] PE: Gen: NAD, resting comfortably Lungs: no respiratory distress Abd: soft, large fascial defect, easily reducible hernia, mild tenderness to palpation, no rebound/guarding Ext: warm, no edema Labs: WBC/Hgb/Hct/Plts: 4.94/11.9/37.1/198 (06/29 218) Na/K+/Phos/Mg/Ca: 141/3.9/2.8/1.7/-- (06/29 218) Bun/Creat/Cl/CO2/Glucose: 5/0.46/110/25/101 (06/29 218) A/P: Mel Wall is a 37 y.o. female w/ an incisional hernia who presented with abdominal pain and nausea with concern for SBO - Advance diet - Add flexeril for multi-modal pain control - Plan for discharge today Clifton Felix MD [place] PGY-5, General Surgery Pager: [phone] Associated attestation - Susan Medina MD - 06/29/2023 8:45 AM EDT Images from the original note were not included. [facility] Attending Attestation: I saw and independently examined Ms. Wall today. I discussed my findings and the therapeutic plan with the resident/fellow. I agree with the resident's/fellow's history, physical examination, and medical decisions as outlined. Now with return of bowel function and significant improvement in symptoms Exam remains benign Advance to clear liquid diet Add flexeril, transition to PO meds Susan Medina MD documented in this encounter [facility] 06-30-2023 Plan of care note Problem: Patient Care Overview Goal: Interdisciplinary Rounds/Family Conf Outcome: Met This Shift Problem: Patient Care Overview Goal: Plan of Care Review Outcome: Progressing Toward Goal Problem: Pain, Acute (Adult) Goal: Identify Related Risk Factors and Signs and Symptoms Description: Related risk factors and signs and symptoms are identified upon initiation of Human Response Clinical Practice Guideline (CPG) Outcome: Progressing Toward Goal Problem: Nausea/Vomiting (Adult) Goal: Identify Related Risk Factors and Signs and Symptoms Description: Related risk factors and signs and symptoms are identified upon initiation of Human Response Clinical Practice Guideline (CPG) Outcome: Progressing Toward Goal Flowsheets (Taken 06/28/20232222 by Aundrea Laboy RN) Related Risk Factors (Nausea/Vomiting): gastrointestinal dysfunction Signs and Symptoms (Nausea/Vomiting): abdominal discomfort/pain report of queasy sensation [facility] 06-30-2023 Miscellaneous Notes Problem: Patient Care Overview Goal: Interdisciplinary Rounds/Family Conf Outcome: Met This Shift Problem: Patient Care Overview Goal: Plan of Care Review Outcome: Progressing Toward Goal Problem: Pain, Acute (Adult) Goal: Identify Related Risk Factors and Signs and Symptoms Description: Related risk factors and signs and symptoms are identified upon initiation of Human Response Clinical Practice Guideline (CPG) Outcome: Progressing Toward Goal Problem: Nausea/Vomiting (Adult) Goal: Identify Related Risk Factors and Signs and Symptoms Description: Related risk factors and signs and symptoms are identified upon initiation of Human Response Clinical Practice Guideline (CPG) Outcome: Progressing Toward Goal Flowsheets (Taken 06/28/2023 2223 by Aundrea Laboy RN) Related Risk Factors (Nausea/Vomiting): gastrointestinal dysfunction Signs and Symptoms (Nausea/Vomiting): abdominal discomfort/pain report of queasy sensation Patient reported significant recurrence of her abdominal pain this morning after eating some eggs on her regular diet. Her vitals remained stable and she denied nausea or vomiting. She is still passing gas and her last bowel movement was prior to the recurrence of her symptoms. Physical Exam: General: hunched over in bed in severe pain, tears in eyes Lungs: no respiratory distress Cards: RRR per monitor Abdomen: soft, large fascial defect, easily reducible hernia, mild tenderness to palpation, no rebound/guarding Plan 1. Abdominal xray to evaluate for recurrence of SBO 2. Transition from regular diet to CLD. If nauseous or vomiting, will transition back to NPO 3. Oxycodone and Dilaudid for pain 4. Continue serial abdominal exams and monitoring of vitals Problem: Patient Care Overview Goal: Interdisciplinary Rounds/Family Conf Outcome: Ongoing Flowsheets (Taken 06/29/2023 0639 by Aundrea Laboy RN) Participants: nursing patient physician Problem: Pain, Acute (Adult) Goal: Identify Related Risk Factors and Signs and Symptoms Description: Related risk factors and signs and symptoms are identified upon initiation of Human Response Clinical Practice Guideline (CPG) Outcome: Ongoing Flowsheets (Taken 06/29/2023 1300) Related Risk Factors (Acute Pain): persistent pain patient perception Signs and Symptoms (Acute Pain): verbalization of pain descriptors pacing/restlessness fear of reinjury On tuesday, a dual RN initial assessment of skin condition was performed by Aundrea Laboy RN and Sybil Berumen RN. Skin Assessment: WDL Patricio Score: 22 LDA Added: No Aundrea Laboy RN On admission to [facility], from ED, a dual RN initial assessment of skin condition was performed by Aundrea Laboy RN and Sybil Berumen RN. Skin Assessment: WDL Patricio Score: 22 LDA Added: No Aundrea Laboy RN Problem: Patient Care Overview Goal: Plan of Care Review Outcome: Ongoing Problem: Patient Care Overview Goal: Individualization & Mutuality Outcome: Ongoing Problem: Patient Care Overview Goal: Discharge Needs Assessment Outcome: Ongoing Problem: Pain, Acute (Adult) Goal: Identify Related Risk Factors and Signs and Symptoms Description: Related risk factors and signs and symptoms are identified upon initiation of Human Response Clinical Practice Guideline (CPG) Outcome: Ongoing Flowsheets (Taken 06/28/20232222) Related Risk Factors (Acute Pain): patient perception Signs and Symptoms (Acute Pain): verbalization of pain descriptors Problem: Nausea/Vomiting (Adult) Goal: Identify Related Risk Factors and Signs and Symptoms Description: Related risk factors and signs and symptoms are identified upon initiation of Human Response Clinical Practice Guideline (CPG) Outcome: Ongoing Flowsheets (Taken 06/28/20232222) Related Risk Factors (Nausea/Vomiting): gastrointestinal dysfunction Signs and Symptoms (Nausea/Vomiting): abdominal discomfort/pain report of queasy sensation Patient arrived to [address] [place] [address] from ED. Vital signs stable, oriented to room, call light within reach. Patient evaluated at bedside for serial abdominal exam. Patient endorses stable mod-severe abdominal pain and nausea, unable to tolerate PO medications. Exam appears stable with mild tenderness along large ventral hernia and right abdomen, no rebound tenderness or guarding. Counseled on reasoning for NGT placement and the alternatives including continued pain/nausea control and monitoring. Patient continues to decline NGT at this time but agrees to placement in the morning if pain/nausea do not improve. She also agrees to have NGT placed if she has any further episodes of emesis. Ryley Mcgovern MD Surgery PGY-1 #[id number] [facility] GI Surgery Attending Certification Note I certify that this patient requires inpatient services at this time. I anticipate the expected length of stay will include at least two midnights. Inpatient services are due to the following medical concerns: the patient has complex abdominal hernia, possible bowel obstruction [possible reasons - an unpredictable clinical course, risk of decompensation, or adverse event, a clinical course that is unlikely to resolve within 2 midnights, presenting signs and symptoms are severe and complex, underlying clinical condition(s) and/or comorbidities may negatively impact clinical course. Services and procedures can only be provided safely as an inpatient and extenuating circumstances make inpatient care the only safe option. Plans for post hospitalization care will be admit, iv fluids, pain control, serial abdominal exams. Patient refusing NGT placement Susan Medina MD documented in this encounter [facility] 06-30-2023 Hospital course Narrative Discharge Summary Name: Mel Wall Age: 37 y.o. Birthday: 1985 Admit Date: 06/28/2023 6:10 AM Discharge Date: 06/30/23 Discharge Time: 11:32AM Discharge Unit: [facility] General Surgery Admission Information Admitting Physician: Susan Medina MD Discharge Information Discharge Physician: Patrick Kong MD Problem List Active Hospital Problems Diagnosis Incisional hernia Resolved Hospital Problems No resolved problems to display. Brief Summary of Hospital Course for Discharge Summary: Mel Wall is a 37 year old female with h/o obesity s/p RnYGB, ventral hernia s/p multiple ventral hernia repairs x4, and previous SBOs requiring operative management who presented with 2 day hx of nausea, vomiting, abdominal pain concerning for SBO. Patient did not want NG tube placement for Gastrogaffin study or decompression. As a result, she was treated conservatively with serial abdominal exams, bowel rest, and analgesics. After one day, the patient's symptoms resolved. She was advanced to a regular diet and then her symptoms recurred. An abdominal xray at that time was consistent with a non-obstructive gas pattern. She was transitioned to a liquid diet ON and then re-advanced to a regular diet on day two of admission without any issues. She was discharged with follow up with Dr. Koehler at [facility] on 07/13/23. Physical Exam: Gen: NAD, resting comfortably Cards: RRR per monitor Lungs: no respiratory distress Abd: soft, large fascial defect, easily reducible hernia, mild tenderness to palpation, no rebound/guarding Ext: warm, no edema Neuro: AOxconversational Brief Summary of Consults for Discharge Summary: n/a Brief Summary of Procedures and Imaging for Discharge Summary: n/a Summary of last selected lab results and date obtained: Lab Results Component Value Date WBC 5.81 06/30/2023 HGB 12.1 06/30/2023 HCT 37.4 06/30/2023 PLATELET 217 06/30/2023 MCV 94.7 06/30/2023 Lab Results Component Value Date SODIUM 136 06/30/2023 POTASSIUM 4.3 06/30/2023 CHLORIDE 108 06/30/2023 CO2 21 06/30/2023 BUN 4 (L) 06/30/2023 CREATSERUM 0.47 (L) 06/30/2023 GLUCOSE 89 06/30/2023 Lab Results Component Value Date ALT 8 (L) 06/27/2023 AST 8 (L) 06/27/2023 ALKPHOS 35 06/27/2023 BILITOTAL 0.2 06/27/2023 BILIDIRECT <0.1 06/27/2023 Brief Summary of Labs for Discharge Summary: No discharge procedures on file. Current Outpatient Meds: Medication List for when you go home START taking these medications Acetaminophen 325 MG tablet Take 2 tablets by mouth every 6 hours as needed for Mild Pain or Moderate Pain for up to 7 days. Commonly known as: TYLENOL Cyclobenzaprine 10 MG TABS Take 1 tablet by mouth 3 times daily for 14 days. Commonly known as: FLEXERIL lidocaine 4 % patch Place 1 patch on skin every 24 hours for 1 day. Max of 12 hours of application then remove. Start taking on: July 01, 2023 oxyCODONE 5 MG TABS Take 1 tablet by mouth every 4 hours as needed for Severe Pain for up to 4 days. Commonly known as: ROXICODONE For diagnoses: Ventral hernia without obstruction or gangrene Pantoprazole [address] tablet DR Take 1 tablet by mouth daily. Commonly known as: PROTONIX Start taking on: July 01, 2023 Polyethylene glycol 17 g PACK packet Take 1 packet by mouth daily for 5 days. Commonly known as: MIRALAX Start taking on: July 01, 2023 Prochlorperazine 5 MG TABS Take 1 tablet by mouth every 6 hours as needed for Refractory Nausea Vomiting for up to 4 days. Commonly known as: COMPAZINE CHANGE how you take these medications FLUoxetine 40 MG CAPS Take 2 capsules by mouth daily. Commonly known as: PROZAC What changed: Another medication with the same name was removed. Continue taking this medication, and follow the directions you see here. CONTINUE taking these medications busPIRone HCl 30 MG TABS take 1/2 tablet by mouth every morning and 1 tablet by mouth every evening STOP taking these medications FLUoxetine 20 MG CAPS Commonly known as: PROZAC You also have another medication with the same name that you need to continue taking as instructed. Follow-up: No follow-up provider specified. Upcoming Appointments (up to five)-Some appointments for Medical Center outpatient clinics or diagnostic testing locations are not displayed below Provider Department Dept Phone 07/13/2023 11:15 AM Tom Franco [facility] Arrive at: Arrive to 1st Floor Lobby Registration Desk [phone] Associated attestation - Susan Medina MD - 06/30/2023 3:39 PM EDT Images from the original note were not included. [facility] Attending Attestation: I saw and independently examined Ms. Wall today. I discussed my findings and the therapeutic plan with the resident/fellow. I agree with the resident's/fellow's history, physical examination, and medical decisions as outlined. Had some pain yesterday afternoon which she describes as a spasm. Improved with flexeril. Benign abdomen, passing flatus and having BMs Advance diet again Ready for DC after diet challenge Susan Medina MD documented in this encounter [facility] 06-30-2023 Hospital Discharge instructions Patrick Kong MD - 06/30/2023 11:04 AM EDT You came to the hospital with severe pain that we attributed to a possible bowel obstruction. We treated you with bowel rest by making you take nothing by mouth, gave you several pain medications, and continuously checked your abdomen for worsening symptoms. After 1 day your symptoms significantly improved. We advanced you to a regular diet, however, your symptoms began to come back. Therefore, we returned you back to a liquid diet for one more day and continued to provide pain control. On the second day you were able to start a regular diet without issues. We are sending you home with some pain medications and nausea medications for when you are at home. You will have a follow up appointment at [facility] with Dr. Koehler on July 13, 2023. The following attachments cannot be sent through Care Everywhere.Pain and Pain Control ([facility]) ([place]i)Bowel Obstruction ([place]i)documented in this encounter [facility] 06-29-2023 Plan of care note Patient reported significant recurrence of her abdominal pain this morning after eating some eggs on her regular diet. Her vitals remained stable and she denied nausea or vomiting. She is still passing gas and her last bowel movement was prior to the recurrence of her symptoms. Physical Exam: General: hunched over in bed in severe pain, tears in eyes Lungs: no respiratory distress Cards: RRR per monitor Abdomen: soft, large fascial defect, easily reducible hernia, mild tenderness to palpation, no rebound/guarding Plan 1. Abdominal xray to evaluate for recurrence of SBO 2. Transition from regular diet to CLD. If nauseous or vomiting, will transition back to NPO 3. Oxycodone and Dilaudid for pain 4. Continue serial abdominal exams and monitoring of vitals [facility] 06-29-2023 Plan of care note Problem: Patient Care Overview Goal: Interdisciplinary Rounds/Family Conf Outcome: Ongoing Flowsheets (Taken 06/29/2023 0639 by Aundrea Laboy RN) Participants: nursing patient physician Problem: Pain, Acute (Adult) Goal: Identify Related Risk Factors and Signs and Symptoms Description: Related risk factors and signs and symptoms are identified upon initiation of Human Response Clinical Practice Guideline (CPG) Outcome: Ongoing Flowsheets (Taken 06/29/2023 1300) Related Risk Factors (Acute Pain): persistent pain patient perception Signs and Symptoms (Acute Pain): verbalization of pain descriptors pacing/restlessness fear of reinjury [facility] 06-29-2023 Nurse Note On wound Tuesday, a dual RN initial assessment of skin condition was performed by Aundrea Laboy RN and Sybil Berumen RN. Skin Assessment: WDL Patricio Score: 22 LDA Added: No Aundrea Laboy RN [facility] 06-28-2023 Nurse Note On admission to [facility], from ED, a dual RN initial assessment of skin condition was performed by Aundrea Laboy RN and Sybil Berumen RN. Skin Assessment: WDL Patricio Score: 22 LDA Added: No Aundrea Laboy RN [facility] 09-19-2023 Plan of care note Problem: Patient Care Overview Goal: Plan of Care Review Outcome: Ongoing Problem: Patient Care Overview Goal: Individualization & Mutuality Outcome: Ongoing Problem: Patient Care Overview Goal: Discharge Needs Assessment Outcome: Ongoing Problem: Pain, Acute (Adult) Goal: Identify Related Risk Factors and Signs and Symptoms Description: Related risk factors and signs and symptoms are identified upon initiation of Human Response Clinical Practice Guideline (CPG) Outcome: Ongoing Flowsheets (Taken 06/28/20232222) Related Risk Factors (Acute Pain): patient perception Signs and Symptoms (Acute Pain): verbalization of pain descriptors Problem: Nausea/Vomiting (Adult) Goal: Identify Related Risk Factors and Signs and Symptoms Description: Related risk factors and signs and symptoms are identified upon initiation of Human Response Clinical Practice Guideline (CPG) Outcome: Ongoing Flowsheets (Taken 06/28/20232222) Related Risk Factors (Nausea/Vomiting): gastrointestinal dysfunction Signs and Symptoms (Nausea/Vomiting): abdominal discomfort/pain report of queasy sensation [facility] 06-28-2023 Nurse Note Patient arrived to [address] [place] [address] from ED. Vital signs stable, oriented to room, call light within reach. T [facility] 06-28-2023 Plan of care note Patient evaluated at bedside for serial abdominal exam. Patient endorses stable mod-severe abdominal pain and nausea, unable to tolerate PO medications. Exam appears stable with mild tenderness along large ventral hernia and right abdomen, no rebound tenderness or guarding. Counseled on reasoning for NGT placement and the alternatives including continued pain/nausea control and monitoring. Patient continues to decline NGT at this time but agrees to placement in the morning if pain/nausea do not improve. She also agrees to have NGT placed if she has any further episodes of emesis. Ryley Mcgovern MD Surgery PGY-1 #[id number] T [facility] Work Phone: 06-28-2023 Emergency department Note Report rcvd and care assumed. Pt ambulatory up to bathroom. Pt reports she vomited x 1 while in the bathroom. Pt continues to consider placement of NG tube. Pt understands rationale and will notify nurse if she determines she would like to proceed. Pt awaiting admit bed placement. Pt updated on the plan of care. [facility] 06-28-2023 Emergency department Note Report rcvd and care assumed. Pt ambulatory up to bathroom. Pt reports she vomited x 1 while in the bathroom. Pt continues to consider placement of NG tube. Pt understands rationale and will notify nurse if she determines she would like to proceed. Pt awaiting admit bed placement. Pt updated on the plan of care. Signout: Mel Wall 37 y.o. female with a chief complaint of Abdominal Pain received in sign-out. Vitals: 06/28/23 0143 06/28/23 0634 06/28/23 0845 06/28/23 1244 BP: 96/52 124/68 123/69 124/63 Pulse: 62 63 58 86 Resp: 18 18 14 Temp: 98.1 degrees F (36.7 degrees C) 97.8 degrees F (36.6 degrees C) TempSrc: Oral Oral Oral SpO2: 97% 98% 97% 99% Height: The patient presents with: history of janel en y, recurrent ventral hernia who presents with abdominal pain. She reports yesterday she felt a pop in her abdomen and hernia worsened. NPO, refused NGT. Pending studies and plan include: NTD The expected disposition is: admitted to [facility] [place] 06/28/23 2005 ED Attending Note This is a SHARED visit with a Mid-Level Provider CHIEF COMPLAINT Abdominal Pain HPI Mel Wall is a 37 y.o. female who presents with abdominal pain. Known ventral hernia. [place] a pop today and had worsening pain so went to o[facility]. Sent here due to pain and enlargement of the hernia. Past Medical History: Diagnosis Date Depression PHYSICAL EXAM VITAL SIGNS: BP 124/68 (BP Location: Left arm, BP Position: Sitting) Pulse 63 Temp 98.4 F (36.9 C) (Oral) Resp 18 Ht 1.651 m (5' 5) SpO2 98% BMI 39.11 kg/m Smoking Status Former Physical Exam Vitals and nursing note reviewed. Constitutional: General: She is not in acute distress. Appearance: She is well-developed. HENT: Head: Normocephalic and atraumatic. Eyes: Conjunctiva/sclera: Conjunctivae normal. Pupils: Pupils are equal, round, and reactive to light. Cardiovascular: Rate and Rhythm: Normal rate and regular rhythm. Heart sounds: Normal heart sounds. Pulmonary: Effort: Pulmonary effort is normal. No respiratory distress. Breath sounds: Normal breath sounds. No wheezing. Abdominal: General: There is no distension. Palpations: Abdomen is soft. Tenderness: There is abdominal tenderness. Comments: Large, soft ventral hernia, very tender, reducible Musculoskeletal: General: No swelling or tenderness. Cervical back: Normal range of motion and neck supple. Right lower leg: No swelling. No edema. Left lower leg: No swelling. No edema. Skin: General: Skin is warm and dry. Neurological: General: No focal deficit present. Mental Status: She is alert and oriented to person, place, and time. Mental status is at baseline. Psychiatric: Mood and Affect: Mood normal. Behavior: Behavior normal. ASSESSMENT, PLAN, & ED COURSE DDx (includes acute life and/or limb threats): hernia, doubt incarceration, strangulation, obstruction Medical Decision Making Pt with worsening pain at hernia site. Enlargement is actually less likely to have strangulation or other dangerous complication, but is causing her quite a bit of pain. Surgery consult. Ventral hernia without obstruction or gangrene: chronic illness or injury with severe exacerbation, progression, or side effects of treatment Risk Prescription drug management. Decision regarding hospitalization. On 06/27/2023 I saw and evaluated the patient with the CASANDRA. I provided a substantive portion of the care for this patient. I personally performed all aspects of the medical decision making for this encounter. I have reviewed and verified this with the CASANDRA so that it accurately reflects our care. Part of this documentation was created with voice recognition software and errors may have occurred. Neri Tanner MD 06/28/235 EMERGENCY DEPARTMENT ENCOUNTER CHIEF COMPLAINT Abdominal Pain JACQUELYN Wall is a 37 y.o. female w history of janel en y, recurrent ventral hernia who presents with abdominal pain. She reports yesterday she felt a pop in her abdomen and hernia worsened. She reports nausea, no vomiting. No fevers or chills. She was seen at [facility] and had ct a/p showing 06/27/2023 2:51 PM EDT 1. There is a very large ventral abdominal wall hernia containing the right colon and multiple loops of small bowel. 2. A 13 mm exophytic intermediate density lesion arising from the lower pole of the left kidney is stable and most compatible with a complex cyst. A 10 mm exophytic intermediate density lesion arising from the midpole of the left kidney posteriorly is new. This could represent a small cyst containing proteinaceous or hemorrhagic debris but a small solid lesion is not excluded. Consider a follow-up renal ultrasound to better characterize this lesion or a repeat CT in 6-12 months to evaluate for stability. 3. There are additional chronic and incidental findings described above. She had an elevated lactate of 5 Was [facility] with [facility] PAST MEDICAL HISTORY Past Medical History: Diagnosis Date Depression SURGICAL HISTORY Past Surgical History: Procedure Laterality Date APPENDECTOMY BYPASS GASTRIC W/ JANEL-EN-Y GASTROENTEROSTOMY OPEN CHOLECYSTECTOMY HERNIA REPAIR times 6 TONSILLECTOMY CURRENT MEDICATIONS Current Outpatient Medications Medication Sig busPIRone HCl 30 MG tablet take 1/2 tablet by mouth every morning and 1 tablet by mouth every evening FLUoxetine 20 MG capsule Take 1 capsule by mouth daily. FLUoxetine 40 MG capsule Take 2 capsules by mouth daily. ALLERGIES Allergies Allergen Reactions Ondansetron Hives and Dyspnea Ketorolac Tromethamine Hives FAMILY HISTORY History reviewed. No pertinent family history. SOCIAL HISTORY Social History Socioeconomic History Marital status: Tobacco Use Smoking status: Former Smokeless tobacco: Never Tobacco comments: stopped 10/14/2021 Vaping Use Vaping Use: Never used Substance and Sexual Activity Alcohol use: Not Currently Drug use: Yes Types: Marijuana REVIEW OF SYSTEMS CONSTITUTIONAL: No Fever, no chills, no change in activity level, no unexpected weight loss/ gain, no fatigue. HENT: No vision changes, no nasal drainage, no throat pain or swelling, no lymphadenopathy. CARDIO: No chest pain or pressure, no palpitations, no shortness of breath, no extremity edema. RESPIRATORY: No cough, no wheezing, no shortness of breath. GI: + abdominal pain, + nausea, no vomiting, no bloody or black tarry stools, no constipation, no diarrhea, no flank pain. : No dysuria, no change in urine output, no hematuria, no frequency. No vaginal pain, no vaginal bleeding MSK: No arthralgias, no myalgias, no back pain, no weakness. SKIN: No wounds, no rashes, no pallor or jaundice. NEUROLOGIC: No headaches, no vision changes, no dizziness, no weaknesses. HEMATOLOGIC: No bruising, no bleeding. ALLERGY/IMMUNE: No allergic or immune reactions. PHYSICAL EXAM VITAL SIGNS: BP 96/52 Pulse 62 Temp 98.4 F (36.9 C) (Oral) Resp 16 Ht 1.651 m (5' 5) SpO2 97% BMI 39.11 kg/m Smoking Status Former On room air General appearance: alert, cooperative, appears stated age Eye: PERRLA Neck: supple, symmetrical, trachea midline and no adenopathy Lungs: clear to auscultation bilaterally, respirations even and unlabored Heart: regular rate and rhythm, S1, S2 normal, no murmur, click, rub or gallop Abdomen: large hernia in the mid/ right lower abdomen, tender, but soft Extremities: extremities normal, atraumatic, no cyanosis or edema, dp pulses intact and symmetric Neurologic: AOx3. Gait normal. Reflexes and motor strength normal and symmetric. Cranial nerves 2-12 and sensation grossly intact Skin: Dry and intact, no rashes or open wounds Psych: appropriate affect, no si or hi I reviewed the patients medical records and noted their allergies, past medical history, and previous visits. I reviewed the nursing notes and vitals. ED COURSE & MEDICAL DECISION MAKING ASSESSMENT: Progressive ventral hernia PLAN: Repeat lactate gen surg consult IVF IV dilaudid for pain control ED COURSE UPDATE: I have reviewed the labs and imaging for the visit and noted the abnormal results. Chem/ lft's within acceptable limits Neg hcg Wbc 8, hgb 11.7, plt 221 Medical Decision Making Lower abdominal pain: acute illness or injury Ventral hernia without obstruction or gangrene: chronic illness or injury with exacerbation, progression, or side effects of treatment that poses a threat to life or bodily functions Amount and/or Complexity of Data Reviewed External Data Reviewed: labs, radiology and notes. Labs: ordered. Decision-making details documented in ED Course. Discussion of management or test interpretation with external provider(s): surgeyr Risk Prescription drug management. Surgery recommended ngt, however patient refusing. Keep npo, will admit to [facility] service FINAL IMPRESSION: Worsening ventral hernia Abdominal pain DISpo admission This was a shared visit with Dr. Nieves The plan of care and all medication prescriptions for this patient were discussed with the attending physician. This note dictated using [employer] medical voice recognition software. Attempts at proofreading were made, but errors may occasionally still occur. N[facility] 06/28/23 1037 Bed: [facility] Expected date: Expected time: Means of arrival: Comments: PT arrives with CC of ventral hernia transfer from [facility]. PT has had the hernia since 03/29. Follows with GI [facility] here for repair. Complaining currently of 9/10 pain at site. 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 Pt Current Location/ Level of care: ED If Inpatient transfer, Date of admission to OSH: N/A Clinical reason for transfer: Continuity of Care, pain control HPI: Hx large vent hernia. [place] pop yesterday. Hernia larger [facility] Hernia repairs, Appendectomy, Gastric bypass janel-en-y cholecystectomy VS: 151/82 97.8 92 18 95%ra weight 104 kg. Pertinent Labs, EKG and images: CT abd pelvis, ventral hernia. No strangulation or incarceration. Lactate 5. IV drips: Fluids, Cipro Flagyl, Reglan, Morphine, Dilaudid Respiratory Support device: n/a settings: n/a Other equipment: Straightening Press Operator Helper Isolation None and ADA needs: no Triaged to: TBD If PCU, please describe reason: Susan Sánchez RN documented in this encounter [facility] 06-28-[address] [facility] GI Surgery H&P Note CC: pt of dr koehler, worsening ventral hernia w pain History of Present Illness: Mel Wall is a 37 y.o. female with history of obesity s/p RnYGB, ventral hernia s/p multiple ventral hernia repairs x4, and previous SBOs requiring operative management who presented with 2 day hx of nausea, vomiting, abdominal pain. Patient reports that she experienced a sharp popping sensation then sudden onset of abdominal pain on Tuesday evening while doing laundry. She also noted increase nausea and bilious emesis over the last 2 days but denies any other symptoms of fevers, chills, melena, cp, sob, or diarrhea. LBM was Tuesday. She presented to her local ED yesterday where CT A/P was obtained which demonstrated is a very large ventral abdominal wall hernia containing the right colon and multiple loops of small bowel. Labs were notable for Lactate 1.8. She was subsequently transferred to [facility] for further eval. Review of Systems - (all positives in bold, otherwise negative) GENERAL: fever, chills, weight loss, fatigue, night sweats EYES: blurry vision, eye pain HENT: headache, hearing loss, sore throat, dysphagia, sinus pain CARDIO: chest pain, palpitations, orthopnea PULM: shortness of breath, wheezing, cough, sputum, hemoptysis GI: nausea, vomiting, diarrhea, abdominal pain, blood in stool : urinary frequency, urgency, dysuria, urethral discharge MSK: joint pain, back pain, swelling SKIN: rash, redness HEME: easy bruising, bleeding The patient's past medical, surgical, family and social history were reviewed and listed below: Past Medical History: Past Medical History: Diagnosis Date Depression Past Surgical History: Past Surgical History: Procedure Laterality Date APPENDECTOMY BYPASS GASTRIC W/ JANEL-EN-Y GASTROENTEROSTOMY OPEN CHOLECYSTECTOMY HERNIA REPAIR times 6 TONSILLECTOMY Medications: Current Facility-Administered Medications Medication Dose Route Frequency Provider Last Rate Last Admin dextrose 5% and sodium chloride 0.45% 1,000 ml with potassium chloride 20 mEq premix IV solution Intravenous Continuous Aditi Lantigua MD 125 mL/hr at 06/28/23 1437 New Bag at 06/28/23 1437 Enoxaparin Sodium (LOVENOX) injection 40 mg 40 mg Subcutaneous Q24H Aditi Lantigua MD 40 mg at 06/28/23 1437 Phenol (CHLORASEPTIC) 1.4 % oral spray 1 spray 1 spray Mouth/Throat PRN Aditi Lantigua MD Polyethylene glycol (MIRALAX) packet 17 g 17 g Oral Daily Aditi Lantigua MD Prochlorperazine (COMPAZINE) tablet 5 mg 5 mg Oral Q6H PRN Aditi Lantigua MD Or Prochlorperazine (COMPAZINE) injection 5 mg 5 mg Intravenous Q6H PRN Aditi Lantigua MD Sodium chloride 0.9% IV solution 250 mL 250 mL Intravenous PRN Aditi Lantigua MD Current Outpatient Medications Medication Sig Dispense Refill busPIRone HCl 30 MG tablet take 1/2 tablet by mouth every morning and 1 tablet by mouth every evening FLUoxetine 20 MG capsule Take 1 capsule by mouth daily. FLUoxetine 40 MG capsule Take 2 capsules by mouth daily. Allergies: Allergies Allergen Reactions Ondansetron Hives and Dyspnea Ketorolac Tromethamine Hives Family History: History reviewed. No pertinent family history. Social History: Social History Socioeconomic History Marital status: Spouse name: Not on file Number of children: Not on file Years of education: Not on file Highest education level: Not on file Occupational History Not on file Tobacco Use Smoking status: Former Smokeless tobacco: Never Tobacco comments: stopped 10/14/2021 Vaping Use Vaping Use: Never used Substance and Sexual Activity Alcohol use: Not Currently Drug use: Yes Types: Marijuana Sexual activity: Not on file Other Topics Concern Not on file Social History Narrative Not on file Social Determinants of Health Financial Resource Strain: Not on file Food Insecurity: Not on file Transportation Needs: Not on file Physical Activity: Not on file Stress: Not on file Social Connections: Not on file Intimate Partner Violence: Not on file Housing Stability: Not on file Vitals: Temp: [97.8 F (36.6 C)-98.4 F (36.9 C)] 98.2 F (36.8 C) Pulse (Heart Rate): [58-86] 69 Resp Rate: [14-18] 16 BP: (96-124)/(52-69) 113/54 O2 Sat (%): [97 %-99 %] 98 % O2 Sat (%): 98 % (06/28 1637) O2 Device: room air (06/28 1637) Physical Exam: Gen: adult female in no acute distress HEENT: normocephalic, atraumatic, anicteric sclera Neck: supple, normal lordosis Lungs: no increased work of breathing, equal chest rise bilaterally, oxygen via NC Cardiac: regular rate and rhythm Abdomen: soft, moderately distended, generalized central abdominal TTP, no rebound or guarding. Large reducible ventral hernia : deferred MSK: no limb deformities, full range of motion at all joints Derm: no rashes, no lesions, no jaundice Neuro: alert and oriented to person, place, and time; moving all extremities; no gross motor or sensory deficits Psych: normal affect; appropriate; no evidence of psychosis Labs: WBC/Hgb/Hct/Plts: 8.41/11.7/35.7/221 (06/27 2216) Na/K+/Phos/Mg/Ca: 137/3.7/--/--/-- (06/27 2216) Bun/Creat/Cl/CO2/Glucose: 8/0.50/107/25/90 (06/27 2216) Recent Labs 06/27/232215 AST 8* ALT 8* BILITOTAL 0.2 BILIDIRECT <0.1 ALBUMIN 3.9 ALKPHOS 35 Imaging: No orders to display Assessment: Mel Wall is a 37 y.o. female with history of obesity s/p RnYGB, ventral hernia s/p multiple ventral hernia repairs x4, and previous SBOs requiring operative management who presented with 2 day hx of nausea, vomiting, abdominal pain. Plan: - Admit to Dr. Teresa Murphy, med/surg - DIET NPO with meds, MIVF. Bowel rest. - serial abdominal exams - recommended NGT placement and decompression. However, the patient is declining intervention at this time. Discussed the risk of not proceeding and patient acknowledged understanding and not wanted to proceed with tube placement. - Will continue to monitor Patient was discussed with Dr. Medina, the [facility] attending longwall headgate operator. Thank you for consulting and involving us in the care of this patient. If there are any further questions, don't hesitate to page the resident longwall headgate operator. Aditi Lantigua MD General Surgery PGY3 Associated attestation - Susan Medina MD - 06/28/2023 6:09 PM EDT Images from the original note were not included. [facility] Attending Attestation: I saw and independently examined Ms. Wall today. I discussed my findings and the therapeutic plan with the resident/fellow. I agree with the resident's/fellow's history, physical examination, and medical decisions as outlined. Known, large, multiply recurrent incisional ventral hernia. Hx gastric bypass. Worsening abd pain, some nausea, emesis x2 days. No BM since Tuesday but thinks she is passing flatus. Vitals fine Exam is benign, large hernia mild tenderness, no overlying skin changes, very soft Labs with lactate of 5 at OSH down to 1.8 with some fluids. No wbc elevation CT with large mouthed hernia, multiple sb and large bowel loops that do not appear threatened. They do not really appear dilated to suggest a high grade SBO. Assessment/Plan Enlarging hernia, pain no evidence of obstruction or threatened bowel at this time. No indication for urgent operative intervention. With her hx of pain, nausea, vomiting, no BM for a few days we discussed NGT decompression and a SBFT contrast challenge in the event she has a partial or developing adhesive sbo. The patient has had multiple sbos in the past and insists she is not obstructed and therefore is declining ngt at this time. We discussed possibility of worsening pain/symptoms, need for operation without ngt decompression. She understands and is declining for now Will admit for obs, serial exams, fluids, pain control. We discussed that she may have NGT placed at any point if she changes her mind. Pain associated with the hernia/abd wall on the right side, I do not think this is a complication of her bariatric surgery/marginal ulcer etc. Her gallbladder is already out. Discussed her case with Dr. Koehler who agreed w plan Susan Medina MD [facility] Work Phone: 06-28-[address] [facility] GI Surgery H&P Note CC: pt of dr koehler, worsening ventral hernia w pain History of Present Illness: Mel Wall is a 37 y.o. female with history of obesity s/p RnYGB, ventral hernia s/p multiple ventral hernia repairs x4, and previous SBOs requiring operative management who presented with 2 day hx of nausea, vomiting, abdominal pain. Patient reports that she experienced a sharp popping sensation then sudden onset of abdominal pain on Tuesday evening while doing laundry. She also noted increase nausea and bilious emesis over the last 2 days but denies any other symptoms of fevers, chills, melena, cp, sob, or diarrhea. LBM was Tuesday. She presented to her local ED yesterday where CT A/P was obtained which demonstrated is a very large ventral abdominal wall hernia containing the right colon and multiple loops of small bowel. Labs were notable for Lactate 1.8. She was subsequently transferred to [facility] for further eval. Review of Systems - (all positives in bold, otherwise negative) GENERAL: fever, chills, weight loss, fatigue, night sweats EYES: blurry vision, eye pain HENT: headache, hearing loss, sore throat, dysphagia, sinus pain CARDIO: chest pain, palpitations, orthopnea PULM: shortness of breath, wheezing, cough, sputum, hemoptysis GI: nausea, vomiting, diarrhea, abdominal pain, blood in stool : urinary frequency, urgency, dysuria, urethral discharge MSK: joint pain, back pain, swelling SKIN: rash, redness HEME: easy bruising, bleeding The patient's past medical, surgical, family and social history were reviewed and listed below: Past Medical History: Past Medical History: Diagnosis Date Depression Past Surgical History: Past Surgical History: Procedure Laterality Date APPENDECTOMY BYPASS GASTRIC W/ JANEL-EN-Y GASTROENTEROSTOMY OPEN CHOLECYSTECTOMY HERNIA REPAIR times 6 TONSILLECTOMY Medications: Current Facility-Administered Medications Medication Dose Route Frequency Provider Last Rate Last Admin dextrose 5% and sodium chloride 0.45% 1,000 ml with potassium chloride 20 mEq premix IV solution Intravenous Continuous Aditi Lantigua MD 125 mL/hr at 06/28/23 1437 New Bag at 06/28/23 1437 Enoxaparin Sodium (LOVENOX) injection 40 mg 40 mg Subcutaneous Q24H Aditi Lantigua MD 40 mg at 06/28/23 1437 Phenol (CHLORASEPTIC) 1.4 % oral spray 1 spray 1 spray Mouth/Throat PRN Aditi Lantigua MD Polyethylene glycol (MIRALAX) packet 17 g 17 g Oral Daily Aditi Lantigua MD Prochlorperazine (COMPAZINE) tablet 5 mg 5 mg Oral Q6H PRN Aditi Lantigua MD Or Prochlorperazine (COMPAZINE) injection 5 mg 5 mg Intravenous Q6H PRN Aditi Lantigua MD Sodium chloride 0.9% IV solution 250 mL 250 mL Intravenous PRN Aditi Lantigua MD Current Outpatient Medications Medication Sig Dispense Refill busPIRone HCl 30 MG tablet take 1/2 tablet by mouth every morning and 1 tablet by mouth every evening FLUoxetine 20 MG capsule Take 1 capsule by mouth daily. FLUoxetine 40 MG capsule Take 2 capsules by mouth daily. Allergies: Allergies Allergen Reactions Ondansetron Hives and Dyspnea Ketorolac Tromethamine Hives Family History: History reviewed. No pertinent family history. Social History: Social History Socioeconomic History Marital status: Spouse name: Not on file Number of children: Not on file Years of education: Not on file Highest education level: Not on file Occupational History Not on file Tobacco Use Smoking status: Former Smokeless tobacco: Never Tobacco comments: stopped 10/14/2021 Vaping Use Vaping Use: Never used Substance and Sexual Activity Alcohol use: Not Currently Drug use: Yes Types: Marijuana Sexual activity: Not on file Other Topics Concern Not on file Social History Narrative Not on file Social Determinants of Health Financial Resource Strain: Not on file Food Insecurity: Not on file Transportation Needs: Not on file Physical Activity: Not on file Stress: Not on file Social Connections: Not on file Intimate Partner Violence: Not on file Housing Stability: Not on file Vitals: Temp: [97.8 F (36.6 C)-98.4 F (36.9 C)] 98.2 F (36.8 C) Pulse (Heart Rate): [58-86] 69 Resp Rate: [14-18] 16 BP: (96-124)/(52-69) 113/54 O2 Sat (%): [97 %-99 %] 98 % O2 Sat (%): 98 % (06/28 1637) O2 Device: room air (06/28 1637) Physical Exam: Gen: adult female in no acute distress HEENT: normocephalic, atraumatic, anicteric sclera Neck: supple, normal lordosis Lungs: no increased work of breathing, equal chest rise bilaterally, oxygen via NC Cardiac: regular rate and rhythm Abdomen: soft, moderately distended, generalized central abdominal TTP, no rebound or guarding. Large reducible ventral hernia : deferred MSK: no limb deformities, full range of motion at all joints Derm: no rashes, no lesions, no jaundice Neuro: alert and oriented to person, place, and time; moving all extremities; no gross motor or sensory deficits Psych: normal affect; appropriate; no evidence of psychosis Labs: WBC/Hgb/Hct/Plts: 8.41/11.7/35.7/221 (06/27 2216) Na/K+/Phos/Mg/Ca: 137/3.7/--/--/-- (06/27 2216) Bun/Creat/Cl/CO2/Glucose: 8/0.50/107/25/90 (06/27 2216) Recent Labs 06/27/232215 AST 8* ALT 8* BILITOTAL 0.2 BILIDIRECT <0.1 ALBUMIN 3.9 ALKPHOS 35 Imaging: No orders to display Assessment: Mel Wall is a 37 y.o. female with history of obesity s/p RnYGB, ventral hernia s/p multiple ventral hernia repairs x4, and previous SBOs requiring operative management who presented with 2 day hx of nausea, vomiting, abdominal pain. Plan: - Admit to Dr. Teresa Murphy, med/surg - DIET NPO with meds, MIVF. Bowel rest. - serial abdominal exams - recommended NGT placement and decompression. However, the patient is declining intervention at this time. Discussed the risk of not proceeding and patient acknowledged understanding and not wanted to proceed with tube placement. - Will continue to monitor Patient was discussed with Dr. Medina, the [facility] attending longwall headgate operator. Thank you for consulting and involving us in the care of this patient. If there are any further questions, don't hesitate to page the resident longwall headgate operator. Aditi Lantigua MD General Surgery PGY3 Associated attestation - Susan Medina MD - 06/28/2023 6:09 PM EDT Images from the original note were not included. [facility] Attending Attestation: I saw and independently examined Ms. Wall today. I discussed my findings and the therapeutic plan with the resident/fellow. I agree with the resident's/fellow's history, physical examination, and medical decisions as outlined. Known, large, multiply recurrent incisional ventral hernia. Hx gastric bypass. Worsening abd pain, some nausea, emesis x2 days. No BM since Tuesday but thinks she is passing flatus. Vitals fine Exam is benign, large hernia mild tenderness, no overlying skin changes, very soft Labs with lactate of 5 at OSH down to 1.8 with some fluids. No wbc elevation CT with large mouthed hernia, multiple sb and large bowel loops that do not appear threatened. They do not really appear dilated to suggest a high grade SBO. Assessment/Plan Enlarging hernia, pain no evidence of obstruction or threatened bowel at this time. No indication for urgent operative intervention. With her hx of pain, nausea, vomiting, no BM for a few days we discussed NGT decompression and a SBFT contrast challenge in the event she has a partial or developing adhesive sbo. The patient has had multiple sbos in the past and insists she is not obstructed and therefore is declining ngt at this time. We discussed possibility of worsening pain/symptoms, need for operation without ngt decompression. She understands and is declining for now Will admit for obs, serial exams, fluids, pain control. We discussed that she may have NGT placed at any point if she changes her mind. Pain associated with the hernia/abd wall on the right side, I do not think this is a complication of her bariatric surgery/marginal ulcer etc. Her gallbladder is already out. Discussed her case with Dr. Koehler who agreed w plan Susan Medina MD documented in this encounter [facility] 06-28-2023 Physician Emergency department Note Signout: Mel Wall 37 y.o. female with a chief complaint of Abdominal Pain received in sign-out. Vitals: 06/28/23 0143 06/28/23 0634 06/28/23 0845 06/28/23 1244 BP: 96/52 124/68 123/69 124/63 Pulse: 62 63 58 86 Resp: 14 Temp: 98.1 degrees F (36.7 degrees C) 97.8 degrees F (36.6 degrees C) TempSrc: Oral Oral Oral SpO2: 97% 98% 97% 99% Height: The patient presents with: history of janel en y, recurrent ventral hernia who presents with abdominal pain. She reports yesterday she felt a pop in her abdomen and hernia worsened. NPO, refused NGT. Pending studies and plan include: NTD The expected disposition is: admitted to [facility] Surgery NED [place] 06/28/23 1962 [facility] Work Phone: 06-28-2023 Progress note Formatting of t his note might be different from the original. [facility] GI Surgery Attending Certification Note I certify that this patient requires inpatient services at this time. I anticipate the expected length of stay will include at least two midnights. Inpatient services are due to the following medical concerns: the patient has complex abdominal hernia, possible bowel obstruction [possible reasons - an unpredictable clinical course, risk of decompensation, or adverse event, a clinical course that is unlikely to resolve within 2 midnights, presenting signs and symptoms are severe and complex, underlying clinical condition(s) and/or comorbidities may negatively impact clinical course. Services and procedures can only be provided safely as an inpatient and extenuating circumstances make inpatient care the only safe option. Plans for post hospitalization care will be admit, iv fluids, pain control, serial abdominal exams. Patient refusing NGT placement Susan Medina MD [facility] 06-28-2023 Consult note Associated Order (s): IP CONSULT TO SURGERY - GENERAL (ELECTIVE) [facility] Consult Note Consulting Service: ED Reason for Consult: pt of dr koehler, worsening ventral hernia w pain History of Present Illness: Mel Wall is a 37 y.o. female with history of obesity s/p RnYGB, ventral hernia s/p multiple ventral hernia repairs x4, and previous SBOs requiring operative management who presented with 2 day hx of nausea, vomiting, abdominal pain. Patient reports that she experienced a sharp popping sensation then sudden onset of abdominal pain on Tuesday evening while doing laundry. She also noted increase nausea and bilious emesis over the last 2 days but denies any other symptoms of fevers, chills, melena, cp, sob, or diarrhea. LBM was Tuesday. She presented to her local ED yesterday where CT A/P was obtained which demonstrated is a very large ventral abdominal wall hernia containing the right colon and multiple loops of small bowel. Labs were notable for Lactate 1.8. She was subsequently transferred to [facility] for further eval. Review of Systems - (all positives in bold, otherwise negative) GENERAL: fever, chills, weight loss, fatigue, night sweats EYES: blurry vision, eye pain HENT: headache, hearing loss, sore throat, dysphagia, sinus pain CARDIO: chest pain, palpitations, orthopnea PULM: shortness of breath, wheezing, cough, sputum, hemoptysis GI: nausea, vomiting, diarrhea, abdominal pain, blood in stool : urinary frequency, urgency, dysuria, urethral discharge MSK: joint pain, back pain, swelling SKIN: rash, redness HEME: easy bruising, bleeding The patient's past medical, surgical, family and social history were reviewed and listed below: Past Medical History: Past Medical History: Diagnosis Date Depression Past Surgical History: Past Surgical History: Procedure Laterality Date APPENDECTOMY BYPASS GASTRIC W/ JANEL-EN-Y GASTROENTEROSTOMY OPEN CHOLECYSTECTOMY HERNIA REPAIR times 6 TONSILLECTOMY Medications: Current Facility-Administered Medications Medication Dose Route Frequency Provider Last Rate Last Admin dextrose 5% and sodium chloride 0.45% 1,000 ml with potassium chloride 20 mEq premix IV solution Intravenous Continuous Aditi Lantigua MD 125 mL/hr at 06/28/23 1437 New Bag at 06/28/23 1437 Enoxaparin Sodium (LOVENOX) injection 40 mg 40 mg Subcutaneous Q24H Aditi Lantigua MD 40 mg at 06/28/23 1437 Phenol (CHLORASEPTIC) 1.4 % oral spray 1 spray 1 spray Mouth/Throat PRN Aditi Lantigua MD Polyethylene glycol (MIRALAX) packet 17 g 17 g Oral Daily Aditi Lantigua MD Prochlorperazine (COMPAZINE) tablet 5 mg 5 mg Oral Q6H PRN Aditi Lantigua MD Or Prochlorperazine (COMPAZINE) injection 5 mg 5 mg Intravenous Q6H PRN Aditi Lantigua MD Sodium chloride 0.9% IV solution 250 mL 250 mL Intravenous PRN Aditi Lantigua MD Current Outpatient Medications Medication Sig Dispense Refill busPIRone HCl 30 MG tablet take 1/2 tablet by mouth every morning and 1 tablet by mouth every evening FLUoxetine 20 MG capsule Take 1 capsule by mouth daily. FLUoxetine 40 MG capsule Take 2 capsules by mouth daily. Allergies: Allergies Allergen Reactions Ondansetron Hives and Dyspnea Ketorolac Tromethamine Hives Family History: History reviewed. No pertinent family history. Social History: Social History Socioeconomic History Marital status: Spouse name: Not on file Number of children: Not on file Years of education: Not on file Highest education level: Not on file Occupational History Not on file Tobacco Use Smoking status: Former Smokeless tobacco: Never Tobacco comments: stopped 10/14/2021 Vaping Use Vaping Use: Never used Substance and Sexual Activity Alcohol use: Not Currently Drug use: Yes Types: Marijuana Sexual activity: Not on file Other Topics Concern Not on file Social History Narrative Not on file Social Determinants of Health Financial Resource Strain: Not on file Food Insecurity: Not on file Transportation Needs: Not on file Physical Activity: Not on file Stress: Not on file Social Connections: Not on file Intimate Partner Violence: Not on file Housing Stability: Not on file Vitals: Temp: [97.8 F (36.6 C)-98.4 F (36.9 C)] 98.2 F (36.8 C) Pulse (Heart Rate): [58-86] 69 Resp Rate: [14-18] 16 BP: (96-124)/(52-69) 113/54 O2 Sat (%): [97 %-99 %] 98 % O2 Sat (%): 98 % (06/28 1637) O2 Device: room air (06/28 1637) Physical Exam: Gen: adult female in no acute distress HEENT: normocephalic, atraumatic, anicteric sclera Neck: supple, normal lordosis Lungs: no increased work of breathing, equal chest rise bilaterally, oxygen via NC Cardiac: regular rate and rhythm Abdomen: soft, moderately distended, generalized central abdominal TTP, no rebound or guarding. Large reducible ventral hernia : deferred MSK: no limb deformities, full range of motion at all joints Derm: no rashes, no lesions, no jaundice Neuro: alert and oriented to person, place, and time; moving all extremities; no gross motor or sensory deficits Psych: normal affect; appropriate; no evidence of psychosis Labs: WBC/Hgb/Hct/Plts: 8.41/11.7/35.7/221 (06/27 2216) Na/K+/Phos/Mg/Ca: 137/3.7/--/--/-- (06/27 2216) Bun/Creat/Cl/CO2/Glucose: 8/0.50/107/25/90 (06/27 2216) Recent Labs 06/27/232215 AST 8* ALT 8* BILITOTAL 0.2 BILIDIRECT <0.1 ALBUMIN 3.9 ALKPHOS 35 Imaging: No orders to display Assessment: Mel Wall is a 37 y.o. female with history of obesity s/p RnYGB, ventral hernia s/p multiple ventral hernia repairs x4, and previous SBOs requiring operative management who presented with 2 day hx of nausea, vomiting, abdominal pain. Plan: - Admit to Dr. Teresa Murphy, med/surg - DIET NPO with meds, MIVF. Bowel rest. - serial abdominal exams - recommended NGT placement and decompression. However, the patient is declining intervention at this time. Discussed the risk of not proceeding and patient acknowledged understanding and not wanted to proceed with tube placement. - Will continue to monitor Patient was discussed with Dr. Medina, the [facility] attending longwall headgate operator. Thank you for consulting and involving us in the care of this patient. If there are any further questions, don't hesitate to page the resident longwall headgate operator. Aditi Lantigua MD General Surgery PGY3 Associated attestation - Susan Medina MD - 06/28/2023 6:13 PM EDT Images from the original note were not included. [facility] Attending Attestation: I saw and independently examined Ms. Wall today. I discussed my findings and the therapeutic plan with the resident/fellow. I agree with the resident's/fellow's history, physical examination, and medical decisions as outlined. Please see H+P attestation from the same date Susan Medina MD [facility] 06-28-2023 Consult note Associated Order (s): IP CONSULT TO SURGERY - GENERAL (ELECTIVE) [facility] Consult Note Consulting Service: ED Reason for Consult: pt of dr koehler, worsening ventral hernia w pain History of Present Illness: Mel Wall is a 37 y.o. female with history of obesity s/p RnYGB, ventral hernia s/p multiple ventral hernia repairs x4, and previous SBOs requiring operative management who presented with 2 day hx of nausea, vomiting, abdominal pain. Patient reports that she experienced a sharp popping sensation then sudden onset of abdominal pain on Tuesday evening while doing laundry. She also noted increase nausea and bilious emesis over the last 2 days but denies any other symptoms of fevers, chills, melena, cp, sob, or diarrhea. LBM was Tuesday. She presented to her local ED yesterday where CT A/P was obtained which demonstrated is a very large ventral abdominal wall hernia containing the right colon and multiple loops of small bowel. Labs were notable for Lactate 1.8. She was subsequently transferred to [facility] for further eval. Review of Systems - (all positives in bold, otherwise negative) GENERAL: fever, chills, weight loss, fatigue, night sweats EYES: blurry vision, eye pain HENT: headache, hearing loss, sore throat, dysphagia, sinus pain CARDIO: chest pain, palpitations, orthopnea PULM: shortness of breath, wheezing, cough, sputum, hemoptysis GI: nausea, vomiting, diarrhea, abdominal pain, blood in stool : urinary frequency, urgency, dysuria, urethral discharge MSK: joint pain, back pain, swelling SKIN: rash, redness HEME: easy bruising, bleeding The patient's past medical, surgical, family and social history were reviewed and listed below: Past Medical History: Past Medical History: Diagnosis Date Depression Past Surgical History: Past Surgical History: Procedure Laterality Date APPENDECTOMY BYPASS GASTRIC W/ JANEL-EN-Y GASTROENTEROSTOMY OPEN CHOLECYSTECTOMY HERNIA REPAIR times 6 TONSILLECTOMY Medications: Current Facility-Administered Medications Medication Dose Route Frequency Provider Last Rate Last Admin dextrose 5% and sodium chloride 0.45% 1,000 ml with potassium chloride 20 mEq premix IV solution Intravenous Continuous Aditi Lantigua MD 125 mL/hr at 06/28/23 1437 New Bag at 06/28/23 1437 Enoxaparin Sodium (LOVENOX) injection 40 mg 40 mg Subcutaneous Q24H Aditi Lantigua MD 40 mg at 06/28/23 1437 Phenol (CHLORASEPTIC) 1.4 % oral spray 1 spray 1 spray Mouth/Throat PRN Aditi Lantigua MD Polyethylene glycol (MIRALAX) packet 17 g 17 g Oral Daily Aditi Lantigua MD Prochlorperazine (COMPAZINE) tablet 5 mg 5 mg Oral Q6H PRN Aditi Lantigua MD Or Prochlorperazine (COMPAZINE) injection 5 mg 5 mg Intravenous Q6H PRN Aditi Lantigua MD Sodium chloride 0.9% IV solution 250 mL 250 mL Intravenous PRN Aditi Lantigua MD Current Outpatient Medications Medication Sig Dispense Refill busPIRone HCl 30 MG tablet take 1/2 tablet by mouth every morning and 1 tablet by mouth every evening FLUoxetine 20 MG capsule Take 1 capsule by mouth daily. FLUoxetine 40 MG capsule Take 2 capsules by mouth daily. Allergies: Allergies Allergen Reactions Ondansetron Hives and Dyspnea Ketorolac Tromethamine Hives Family History: History reviewed. No pertinent family history. Social History: Social History Socioeconomic History Marital status: Spouse name: Not on file Number of children: Not on file Years of education: Not on file Highest education level: Not on file Occupational History Not on file Tobacco Use Smoking status: Former Smokeless tobacco: Never Tobacco comments: stopped 10/14/2021 Vaping Use Vaping Use: Never used Substance and Sexual Activity Alcohol use: Not Currently Drug use: Yes Types: Marijuana Sexual activity: Not on file Other Topics Concern Not on file Social History Narrative Not on file Social Determinants of Health Financial Resource Strain: Not on file Food Insecurity: Not on file Transportation Needs: Not on file Physical Activity: Not on file Stress: Not on file Social Connections: Not on file Intimate Partner Violence: Not on file Housing Stability: Not on file Vitals: Temp: [97.8 F (36.6 C)-98.4 F (36.9 C)] 98.2 F (36.8 C) Pulse (Heart Rate): [58-86] 69 Resp Rate: [14-18] 16 BP: (96-124)/(52-69) 113/54 O2 Sat (%): [97 %-99 %] 98 % O2 Sat (%): 98 % (06/28 1637) O2 Device: room air (06/28 1637) Physical Exam: Gen: adult female in no acute distress HEENT: normocephalic, atraumatic, anicteric sclera Neck: supple, normal lordosis Lungs: no increased work of breathing, equal chest rise bilaterally, oxygen via NC Cardiac: regular rate and rhythm Abdomen: soft, moderately distended, generalized central abdominal TTP, no rebound or guarding. Large reducible ventral hernia : deferred MSK: no limb deformities, full range of motion at all joints Derm: no rashes, no lesions, no jaundice Neuro: alert and oriented to person, place, and time; moving all extremities; no gross motor or sensory deficits Psych: normal affect; appropriate; no evidence of psychosis Labs: WBC/Hgb/Hct/Plts: 8.41/11.7/35.7/221 (09/18 2216) Na/K+/Phos/Mg/Ca: 137/3.7/--/--/-- (06/27 2216) Bun/Creat/Cl/CO2/Glucose: 8/0.50/107/25/90 (06/27 2216) Recent Labs 06/27/232215 AST 8* ALT 8* BILITOTAL 0.2 BILIDIRECT <0.1 ALBUMIN 3.9 ALKPHOS 35 Imaging: No orders to display Assessment: Mel Wall is a 37 y.o. female with history of obesity s/p RnYGB, ventral hernia s/p multiple ventral hernia repairs x4, and previous SBOs requiring operative management who presented with 2 day hx of nausea, vomiting, abdominal pain. Plan: - Admit to Dr. Teresa Murphy, med/surg - DIET NPO with meds, MIVF. Bowel rest. - serial abdominal exams - recommended NGT placement and decompression. However, the patient is declining intervention at this time. Discussed the risk of not proceeding and patient acknowledged understanding and not wanted to proceed with tube placement. - Will continue to monitor Patient was discussed with Dr. Medina, the [facility] attending longwall headgate operator. Thank you for consulting and involving us in the care of this patient. If there are any further questions, don't hesitate to page the resident longwall headgate operator. Aditi Lantigua MD General Surgery PGY3 Associated attestation - Susan Medina MD - 06/28/2023 6:13 PM EDT Images from the original note were not included. [facility] GI Surgery Attending Attestation: I saw and independently examined Ms. Wall today. I discussed my findings and the therapeutic plan with the resident/fellow. I agree with the resident's/fellow's history, physical examination, and medical decisions as outlined. Please see H+P attestation from the same date Susan Medina MD documented in this encounter [facility] 06-28-2023 Physician Emergency department Note ED Attending Note This is a SHARED visit with a Mid-Level Provider CHIEF COMPLAINT Abdominal Pain HPI Mel Wall is a 37 y.o. female who presents with abdominal pain. Known ventral hernia. [place] a pop today and had worsening pain so went to osh. Sent here due to pain and enlargement of the hernia. Past Medical History: Diagnosis Date Depression PHYSICAL EXAM VITAL SIGNS: BP 124/68 (BP Location: Left arm, BP Position: Sitting) Pulse 63 Temp 98.4 F (36.9 C) (Oral) Resp 18 Ht 1.651 m (5' 5) SpO2 98% BMI 39.11 kg/m Smoking Status Former Physical Exam Vitals and nursing note reviewed. Constitutional: General: She is not in acute distress. Appearance: She is well-developed. HENT: Head: Normocephalic and atraumatic. Eyes: Conjunctiva/sclera: Conjunctivae normal. Pupils: Pupils are equal, round, and reactive to light. Cardiovascular: Rate and Rhythm: Normal rate and regular rhythm. Heart sounds: Normal heart sounds. Pulmonary: Effort: Pulmonary effort is normal. No respiratory distress. Breath sounds: Normal breath sounds. No wheezing. Abdominal: General: There is no distension. Palpations: Abdomen is soft. Tenderness: There is abdominal tenderness. Comments: Large, soft ventral hernia, very tender, reducible Musculoskeletal: General: No swelling or tenderness. Cervical back: Normal range of motion and neck supple. Right lower leg: No swelling. No edema. Left lower leg: No swelling. No edema. Skin: General: Skin is warm and dry. Neurological: General: No focal deficit present. Mental Status: She is alert and oriented to person, place, and time. Mental status is at baseline. Psychiatric: Mood and Affect: Mood normal. Behavior: Behavior normal. ASSESSMENT, PLAN, & ED COURSE DDx (includes acute life and/or limb threats): hernia, doubt incarceration, strangulation, obstruction Medical Decision Making Pt with worsening pain at hernia site. Enlargement is actually less likely to have strangulation or other dangerous complication, but is causing her quite a bit of pain. Surgery consult. Ventral hernia without obstruction or gangrene: chronic illness or injury with severe exacerbation, progression, or side effects of treatment Risk Prescription drug management. Decision regarding hospitalization. On 06/27/2023 I saw and evaluated the patient with the CASANDRA. I provided a substantive portion of the care for this patient. I personally performed all aspects of the medical decision making for this encounter. I have reviewed and verified this with the CASANDRA so that it accurately reflects our care. Part of this documentation was created with voice recognition software and errors may have occurred. Neri Tanner MD 06/28/232224 [facility] Work Phone: 06-28-2023 Physician Emergency department Note EMERGENCY DEPARTMENT ENCOUNTER CHIEF COMPLAINT Abdominal Pain JACQUELYN Wall is a 37 y.o. female w history of janel en y, recurrent ventral hernia who presents with abdominal pain. She reports yesterday she felt a pop in her abdomen and hernia worsened. She reports nausea, no vomiting. No fevers or chills. She was seen at OSH and had ct a/p showing 06/27/2023 2:51 PM EDT 1. There is a very large ventral abdominal wall hernia containing the right colon and multiple loops of small bowel. 2. A 13 mm exophytic intermediate density lesion arising from the lower pole of the left kidney is stable and most compatible with a complex cyst. A 10 mm exophytic intermediate density lesion arising from the midpole of the left kidney posteriorly is new. This could represent a small cyst containing proteinaceous or hemorrhagic debris but a small solid lesion is not excluded. Consider a follow-up renal ultrasound to better characterize this lesion or a repeat CT in 6-12 months to evaluate for stability. 3. There are additional chronic and incidental findings described above. She had an elevated lactate of 5 [facility] Follow[facility] w [facility] Koehler [facility] with planned repair PAST MEDICAL HISTORY Past Medical History: Diagnosis Date Depression SURGICAL HISTORY Past Surgical History: Procedure Laterality Date APPENDECTOMY BYPASS GASTRIC W/ JANEL-EN-Y GASTROENTEROSTOMY OPEN CHOLECYSTECTOMY HERNIA REPAIR times 6 TONSILLECTOMY CURRENT MEDICATIONS Current Outpatient Medications Medication Sig busPIRone HCl 30 MG tablet take 1/2 tablet by mouth every morning and 1 tablet by mouth every evening FLUoxetine 20 MG capsule Take 1 capsule by mouth daily. FLUoxetine 40 MG capsule Take 2 capsules by mouth daily. ALLERGIES Allergies Allergen Reactions Ondansetron Hives and Dyspnea Ketorolac Tromethamine Hives FAMILY HISTORY History reviewed. No pertinent family history. SOCIAL HISTORY Social History Socioeconomic History Marital status: Tobacco Use Smoking status: Former Smokeless tobacco: Never Tobacco comments: stopped 10/14/2021 Vaping Use Vaping Use: Never used Substance and Sexual Activity Alcohol use: Not Currently Drug use: Yes Types: Marijuana REVIEW OF SYSTEMS CONSTITUTIONAL: No Fever, no chills, no change in activity level, no unexpected weight loss/ gain, no fatigue. HENT: No vision changes, no nasal drainage, no throat pain or swelling, no lymphadenopathy. CARDIO: No chest pain or pressure, no palpitations, no shortness of breath, no extremity edema. RESPIRATORY: No cough, no wheezing, no shortness of breath. GI: + abdominal pain, + nausea, no vomiting, no bloody or black tarry stools, no constipation, no diarrhea, no flank pain. : No dysuria, no change in urine output, no hematuria, no frequency. No vaginal pain, no vaginal bleeding MSK: No arthralgias, no myalgias, no back pain, no weakness. SKIN: No wounds, no rashes, no pallor or jaundice. NEUROLOGIC: No headaches, no vision changes, no dizziness, no weaknesses. HEMATOLOGIC: No bruising, no bleeding. ALLERGY/IMMUNE: No allergic or immune reactions. PHYSICAL EXAM VITAL SIGNS: BP 96/52 Pulse 62 Temp 98.4 F (36.9 C) (Oral) Resp 16 Ht 1.651 m (5' 5) SpO2 97% BMI 39.11 kg/m Smoking Status Former On room air General appearance: alert, cooperative, appears stated age Eye: PERRLA Neck: supple, symmetrical, trachea midline and no adenopathy Lungs: clear to auscultation bilaterally, respirations even and unlabored Heart: regular rate and rhythm, S1, S2 normal, no murmur, click, rub or gallop Abdomen: large hernia in the mid/ right lower abdomen, tender, but soft Extremities: extremities normal, atraumatic, no cyanosis or edema, dp pulses intact and symmetric Neurologic: AOx3. Gait normal. Reflexes and motor strength normal and symmetric. Cranial nerves 2-12 and sensation grossly intact Skin: Dry and intact, no rashes or open wounds Psych: appropriate affect, no si or hi I reviewed the patients medical records and noted their allergies, past medical history, and previous visits. I reviewed the nursing notes and vitals. ED COURSE & MEDICAL DECISION MAKING ASSESSMENT: Progressive ventral hernia PLAN: Repeat lactate gen surg consult IVF IV dilaudid for pain control ED COURSE UPDATE: I have reviewed the labs and imaging for the visit and noted the abnormal results. Chem/ lft's within acceptable limits Neg hcg Wbc 8, hgb 11.7, plt 221 Medical Decision Making Lower abdominal pain: acute illness or injury Ventral hernia without obstruction or gangrene: chronic illness or injury with exacerbation, progression, or side effects of treatment that poses a threat to life or bodily functions Amount and/or Complexity of Data Reviewed External Data Reviewed: labs, radiology and notes. Labs: ordered. Decision-making details documented in ED Course. Discussion of management or test interpretation with external provider(s): surgeyr Risk Prescription drug management. Surgery recommended ngt, however patient refusing. Keep npo, will admit to [facility] service FINAL IMPRESSION: Worsening ventral hernia Abdominal pain DISpo admission This was a shared visit with Dr. Nieves The plan of care and all medication prescriptions for this patient were discussed with the attending physician. This note dictated using [employer] voice recognition software. Attempts at proofreading were made, but errors may occasionally still occur. NED Mckeon 06/28/23 1037 [facility] 06-28-2023 Emergency department Note Bed: [facility] Expected date: Expected time: Means of arrival: Comments: [facility] 06-27-2023 Emergency department Note PT arrives with CC of ventral hernia transfer from [facility]. PT has had the hernia since 03/29. Follows with GI SX here for repair. Complaining currently of 9/10 pain at site. Please see previous transfer center note: Transfer Center Intake Note [phone] Triage Line [phone] Bed Placement REMINDER to TC production welder: please request facesheet, images, and discharge summary if inpatient. Pt Current Location/ Level of care: ED If Inpatient transfer, Date of admission to OSH: N/A Clinical reason for transfer: Continuity of Care, pain control HPI: Hx large vent hernia. [place] pop yesterday. Hernia larger PMH Hernia repairs, Appendectomy, Gastric bypass janel-en-y cholecystectomy VS: 151/82 97.8 92 18 95%ra weight 104 kg. Pertinent Labs, EKG and images: CT abd pelvis, ventral hernia. No strangulation or incarceration. Lactate 5. IV drips: Fluids, Cipro Flagyl, Reglan, Morphine, Dilaudid Respiratory Support device: n/a settings: n/a Other equipment: Straightening Press Operator Helper Isolation None and ADA needs: no Triaged to: TBD If PCU, please describe reason: Susan Sánchez RN [facility] 03-22-2023 Note HNO ID: [id number] Author: Sol Hutchinson RN Service: ? Author Type: Registered Nurse Type: Progress Notes Filed: 03/22/2023 12:41 PM Note Text: TRANSITION CARE MANAGEMENT (TCM) FOLLOW-UP NOTE Provider Action/FYI Unable to reach or leave a message as no mailbox set up Per chart review, GI surgery follow up on 03-23-23 Discharge Network Status: In-Network Discharge Summary: Pt discharged from Main campus on 03[facility]12-23. Admitted for: abdominal pain due to ventral hernia. Concerns: Unable to reach with initial and subsequent TCM follow ups Piercing Artist plan for next outreach: Will follow up one to 2 weeks as indicated SOFIA Education Ordered -: No Signature Sol Hutchinson RN March 22, 2023 [facility] 03-22-2023 Note Patient Outreach ([facility]) -------- MEL WALL ([id number]) 1985 F CHT Date Time Provider Department 03/22/23 SOL HUTCHINSON During your visit today, we recorded the following information about you: Sol Hutchinson RN 03/22/2023 12:41 PM Signed TRANSITION CARE MANAGEMENT (TCM) FOLLOW-UP NOTE Provider Action/FYI Unable to reach or leave a message as no mailbox set up Per chart review, GI surgery follow up on 03-23-23 Discharge Network Status: In-Network Discharge Summary: Pt discharged from [facility] on 03-12-23. Admitted for: abdominal pain due to ventral hernia. Concerns: Unable to reach with initial and subsequent TCM follow ups Piercing Artist plan for next outreach: Will follow up one to 2 weeks as indicated SOFIA Education Ordered -: No Signature Sol Hutcihnson RN March 22, 2023 Allergies As of Date: 03/22/2023 Noted Allergy Reaction TORADOL (KETOROLAC) 07/24/2013 4 - Hives 12 - Shortness of Breath ZOFRAN (ONDANSETRON HCL (PF)) 07/24/2013 4 - Hives 12 - Shortness of Breath Date Reviewed: 03/11/2023 Reviewed by: Janki Beatty RN - Fully Assessed Reason for Visit: Transition Of Care [4074] Cmt: TCM [facility] hospital discharge follow up - Day 10 Prescriptions as of 03/22/2023 - prochlorperazine (COMPAZINE) 5 mg tablet Take 2 tablets by mouth every 6 hours as needed. - oxyCODONE IR (ROXICODONE) 5 mg immediate release tablet Take 1 tablet by mouth every 6 hours as needed for pain. - busPIRone HCl 30 mg tablet Take 30 mg by mouth twice daily. - FLUoxetine (PROZAC) 40 mg capsule Take 2 capsules by mouth once daily. Take with 20 mg dose. - FLUoxetine (PROZAC) 20 mg capsule Take 1 capsule by mouth once daily. Take with 2 capsules of the 40 mg dose. 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 Author Type: Registered Nurse Type: Progress Notes Filed: 03/14/2023 7:26 PM Note Text: TRANSITIONAL CARE MANAGEMENT (TCM) COMMUNITY MONITORING PROGRAM Provider Action/FYI: 2nd attempt unable to leave message. SUMMARY: Discharge Network Status: In-Network [facility]charge [facility]. Admitted for: ventral hernia. Contact made with patient: No - 2nd unsuccessful attempt - end outreach and close encounter Outreach ended TCM Home Visit Referral Source of Stratification: [facility] Admission Status: Discharged Readmission Risk Score: 17 JONATHAN Score: 2 Patient meets program referral criteria: No Patient does not qualify for High Risk TCM Home Visit program due to: Discharged home, does not meet program criteria Jenny Celeste RN March 14, 2023 3:45 PM TRANSITIONAL CARE MANAGEMENT (TCM) COMMUNITY MONITORING PROGRAM Provider Action/FYI: 1st attempt left VM message SUMMARY: Discharge Network Status: In-Network Discharge Pt discharged from [facility] on 03-12-23. Admitted for: ventral hernia. Contact made with patient: No - next outreach attempt will be on next business day Outreach ended [facility] 03-14-2023 History of Present illness Narrative TRANSITIONAL CARE MANAGEMENT (TCM) COMMUNITY MONITORING PROGRAM Provider Action/FYI: 2nd attempt unable to leave message. SUMMARY: Discharge Network Status: In-Network Discharge Pt discharged from [facility] on 03-12-23. Admitted for: ventral hernia. Contact made with patient: No - 2nd unsuccessful attempt - end outreach and close encounter Outreach ended TCM Home Visit Referral Source of Stratification: [facility] Admission Status: Discharged Readmission Risk Score: 17 JONATHAN Score: 2 Patient meets program referral criteria: No Patient does not qualify for High Risk TCM Home Visit program due to: Discharged home, does not meet program criteria Jenny Celeste RN March 14, 2023 3:45 PM TRANSITIONAL CARE MANAGEMENT (TCM) COMMUNITY MONITORING PROGRAM Provider Action/FYI: 1st attempt left VM message SUMMARY: Discharge Network Status: In-Network Discharge Pt discharged from [facility] on 03-12-23. Admitted for: ventral hernia. Contact made with patient: No - next outreach attempt will be on next Outreach ended documented in this encounter [facility] 03-14-2023 Note Patient Outreach ([facility]) -------- MEL WALL ([id number]) 1985 F T Date Time Provider Department 03/14/23 JENNY CELESTE During your visit today, we recorded the following information about you: Jenny Celeste RN 03/14/2023 7:26 PM Signed TRANSITIONAL CARE MANAGEMENT (TCM) COMMUNITY MONITORING PROGRAM Provider Action/FYI: 2nd attempt unable to leave message. SUMMARY: Discharge Network Status: In-Network Discharge Pt discharged from [facility] on 03-12-23. Admitted for: ventral hernia. Contact made with patient: No - 2nd unsuccessful attempt - end outreach and close encounter Outreach ended TCM Home Visit Referral Source of Stratification: [facility] Admission Status: Discharged Readmission Risk Score: 17 JONATHAN Score: 2 Patient meets program referral criteria: No Patient does not qualify for High Risk TCM Home Visit program due to: Discharged home, does not meet program criteria Jenny Celeste RN March 14, 2023 3:45 PM TRANSITIONAL CARE MANAGEMENT (TCM) COMMUNITY MONITORING PROGRAM Provider Action/FYI: 1st attempt left VM message SUMMARY: Discharge Network Status: In-Network Discharge Pt discharged from [facility] on 03-12-23. Admitted for: ventral hernia. Contact made with patient: No - next outreach attempt will be on next Outreach ended Allergies As of Date: 03/14/2023 Noted Allergy Reaction TORADOL (KETOROLAC) 07/24/2013 4 - Hives 12 - Shortness of Breath ZOFRAN (ONDANSETRON HCL (PF)) 07/24/2013 4 - Hives 12 - Shortness of Breath Date Reviewed: 03/11/2023 Reviewed by: Janki Beatty RN - Fully Assessed Reason for Visit: Transition Of Care [4074] Cmt: [facility] 03-12-23. Prescriptions as of 03/14/2023 - prochlorperazine (COMPAZINE) 5 mg tablet Take 2 tablets by mouth every 6 hours as needed. - oxyCODONE IR (ROXICODONE) 5 mg immediate release tablet Take 1 tablet by mouth every 6 hours as needed for pain. - busPIRone HCl 30 mg tablet Take 30 mg by mouth twice daily. - FLUoxetine (PROZAC) 40 mg capsule Take 2 capsules by mouth once daily. Take with 20 mg dose. - FLUoxetine (PROZAC) 20 mg capsule Take 1 capsule by mouth once daily. Take with 2 capsules of the 40 mg dose. 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 Author Type: Registered Nurse Type: Nursing Progress Note Filed: 03/12/2023 10:31 AM Note Text: Pt in 07/19 pain no prn's available - paged day team. Spoke with MD no new orders. [facility] 03-12-2023 Note HNO ID: [id number] Author: Dhruv Vaca MD Service: General Surgery Author Type: Resident Type: Progress Notes Filed: 03/12/2023 11:10 AM Note Text: GENERAL SURGERY PROGRESS NOTE NAME: Mel Wall 03/12/2023 8:37 AM Assessment and Plan: Mel Wall is a 37 year old female with PMH of depression and duodenal switch procedure for bile reflux c/b large recurrent incisional hernia who was admitted from OSH for small bowel obstruction with no signs concerning for strangulation. Tolerating liquids, pain controlled, having bowel function, and hernia remains reducible. SBFT showed contrast in the colon so the patient currently does not have a SBO. Will advance to full liquids and start a bowel regimen. Patient is ok for discharge from our standpoint. Will order follow up with hernia team here for evaluation of hernia repair. Plan: Neuro/Pain: Home buspirone, fluoxetine. PRN tylenol, oxycodone Cardio/Resp: Recommend incentive spirometry and pulmonary hygiene FEN/GI: Diet: Fulls, Zofran, reglan, compazine prn. Senna-S Renal: Strict I/Os. Monitor urine output. Replete electrolytes prn. Heme: Hgb stable. No evidence of bleeding. Wound/ID: No evidence of infection; no indication for antibiotics Endo: No insulin needs DVT PPx: subq heparin, ICDs Activity: Out of Bed, ambulate as able. Dispo: RNF - ok for discharge with outpatient follow up Dhruv Vaca MD General Surgery, PGY-1 Acute Care Surgery ([facility]) Day Floor Pager: [phone] Acute Care Surgery ([facility]) Day Consults Pager: [phone] On nights (6 pm to 6 am) and on Weekends/Holidays, please page the on-call pager: [phone] Subjective: No acute events overnight. Pain improving. Tolerated liquids. Having bowel function. Patient wants to go home. Objective: 03/11/23 1342 03/11/23 1730 03/11/23 2146 03/12/23 0449 BP: 143/84 142/69 119/60 135/69 Pulse: 85 89 71 80 Resp: 18 17 18 17 Temp: 36.9 ?C (98.4 ?F) 36.6 ?C (97.9 ?F) 36.8 ?C (98.2 ?F) 36.6 ?C (97.9 ?F) TempSrc: Oral Oral Oral Oral SpO2: 97% 97% 99% 97% Weight: Height: General: Resting comfortably in bed, alert and oriented, no acute distress CV: Normal rate Pulm: symmetrical chest expansion, non-labored breathing, no use of accessory muscles, on room air Abd: soft, nondistended, mildly tender to palpation, no rebound/guarding, ventral hernia is reducible Extremities: no pitting edema Skin: warm, dry, intact, no rashes Recent Labs 03/12/23 0304 03/12/23 0303 03/10/23 0910 WBC 7.98 -- 8.30 HB 12.9 -- 12.8 HCT 39.4 -- 38.9 PLT 242 -- 219 NA -- 138 138 K -- 3.5* 4.0 CHLOR -- 103 103 CO2 -- 24 24 CREAT -- 0.54* 0.58 BUN -- 6* 7 GLUC -- 106* 105* MG -- 1.9 2.0 CA -- 9.2 9.1 Imaging Reviewed: None [facility] 03-11-2023 Note HNO ID: [id number] Author: Moira Nielson RN Service: Care Management Author Type: Registered Nurse Type: Care Mgt Initial Assessment Filed: 03/11/2023 12:30 PM Note Text: CARE MANAGEMENT: ASSESSMENT AND DISCHARGE PLAN SERVICE DATE: March 11, 2023 SERVICE TIME: 12:27 PM PCP: Jose Barron MD Primary Contact: Extended Emergency Contact Information Primary Emergency Contact: Stephanie Hernandes Address: [address] [place] [address] [place] [address] Mobile Relation: Mother Admission Status: Inpatient Insurance Provider: [facility] [employer] MEDICAID OF [place] Discharge Planning requested by: Per Department Practice Potential Transition Plans To Be Determined Advance Directives Current Advance Directive: None Parking Meter Attendant Attempted to Assist with AD Completion: Yes Action: Education Provided Current Living Arrangements and Support Lives with: Parent (16yr daughter) Type of Residence: Private Residence (House) Support: Family members How do you manage to accomplish the following: Independent: Ambulation;Bathe/Shower;Dress;Meals/ Meal Prep;Going to the bathroom;Medication Management;Transportation to appointments/community Current Services/Equipment Current Post-Acute Service(s): None Discharge Planning Patient Goal(s): Independent living, Be able to go home, General wellness, The patient/family expressed post-acute services are not needed at this time. Casar of Choice Explained: Casar of Choice Given: No Reason Not Given: No placements necessary Are you interested in bedside delivery of your medications? No not offered on H51 Discharge Planning Participant(s): Patient Patient/Family Comments: Caregiver Assessment: Caregiver is ready, willing and able to meet the patient's needs as recommended by the inter-professional team: No Caregiver needed Transport at Discharge: Transportation Arrangements: Car Destination: Home Needs Prior to Discharge: Needs Prior to Discharge: To Be Determined Post-Acute Discharge Plan: CM met with patient at bedside. Patient is independent prior to admission. She lives with parents who she cares for as far as cleaning, laundry, setting them up for bathing. No skilled needs are identified at this time. Needs TBD pending medical work up. No weekend discharge is anticipated. For weekend CM needs, please contact on-call CM at: G Building - [id number] H Building - 62486 J Building - 15389 M Building - [id number] SIGNATURE: Moira Nielson RN PATIENT NAME: Mel Wall DATE: March 11, 2023 TIME: 12:27 PM CONTACT #: [id number] [facility] 03-11-2023 Note HNO ID: [id number] Author: Dhruv Vaca MD Service: General Surgery Author Type: Resident Type: Progress Notes Filed: 03/11/2023 8:19 AM Note Text: GENERAL SURGERY PROGRESS NOTE NAME: Mel Wall 03/11/2023 7:59 AM Assessment and Plan: Mel Wall is a 37 year old female with PMH of depression and duodenal switch procedure for bile reflux c/b large recurrent incisional hernia who was admitted from OSH for small bowel obstruction with no signs concerning for strangulation. Patient having stable abdominal pain and nausea. Only 500cc out of the NG tube but still no bowel function. Will obtain a small bowel follow thru to determine if there is resolution of the obstruction and if there will be a need for OR. Hernia is reducible at this time. Plan: - Small bowel follow thru Neuro/Pain: Home buspirone, fluoxetine. PRN tylenol, oxycodone, and dilaudid for pain control Cardio/Resp: Recommend incentive spirometry and pulmonary hygiene FEN/GI: Diet: NPO. NG tube to low intermittent wall suction, mIVF. Zofran, reglan, compazine prn. Renal: Strict I/Os. Monitor urine output. Replete electrolytes prn. Heme: Hgb stable. No evidence of bleeding. Wound/ID: No evidence of infection; no indication for antibiotics Endo: No insulin needs DVT PPx: subq heparin, ICDs Activity: Out of Bed, ambulate as able. Dispo: TESSIE Vaca MD General Surgery, PGY-1 Acute Care Surgery (ACS) Day Floor Pager: [phone] Acute Care Surgery (ACS) Day Consults Pager: [phone] On nights (6 pm to 6 am) and on Weekends/Holidays, please page the on-call pager: [phone] Subjective: No acute events overnight. The patient states she is having stable abdominal pain in the region of her ventral hernia. She some nausea but no vomiting. Not passing flatus or having bowel movements. Objective: 03/10/23 1315 03/10/23 1713 03/10/23 2150 03/11/23 0641 BP: 153/76 150/80 133/52 158/76 Pulse: 75 80 63 60 Resp: 18 17 18 18 Temp: 37.2 ?C (99 ?F) 36.9 ?C (98.4 ?F) 36.8 ?C (98.2 ?F) 36.5 ?C (97.7 ?F) TempSrc: Oral Oral Oral Oral SpO2: 98% 99% 95% 100% Weight: Height: General: Resting comfortably in bed, alert and oriented, no acute distress CV: Normal rate Pulm: symmetrical chest expansion, non-labored breathing, no use of accessory muscles, on room air Abd: soft, nondistended, mild to moderately tender to palpation, no rebound/guarding, ventral hernia is reducible Extremities: no pitting edema Skin: warm, dry, intact, no rashes Recent Labs 03/10/23 0910 03/09/23 0207 WBC 8.30 10.58 HB 12.8 12.6 HCT 38.9 37.7 PLT 219 293 NA 138 141 K 4.0 3.8 CHLOR 103 108* CO2 24 25 CREAT 0.58 0.67 BUN 7 12 GLUC 105* 104* TPROT -- 6.5 ALB -- 4.1 MG 2.0 -- CA 9.1 9.7 ALKPHOS -- 43* TBILI -- 0.2 AST -- 10 ALT -- 15 Imaging Reviewed: None [facility] 03-10-2023 Note HNO ID: [id number] Author: Moira Nielson RN Service: Care Management Author Type: Registered Nurse Type: Care Mgt Progress Note Filed: 03/10/2023 2:13 PM Note Text: CARE MANAGEMENT PROGRESS NOTE SERVICE DATE: 03/10/2023 SERVICE TIME: 2:09 PM LOS: 0 days Needs Prior to Discharge: To Be Determined CM attempted to speak with patient on the phone and she did not answer and her phone is not set up for voicemail. Per bedside Nurse patient relayed patient is sleeping most of time in between pain meds and anti emetics. CM tried to speak with patient's mother and she did not answer. CM will follow up tomorrow. TCC will continue to follow POC for discharge planning. SIGNATURE: Moira Nielson RN PATIENT NAME: Mel Wall DATE: March 10, 2023 TIME: 2:09 PM PAGER/CONTACT #: [phone] [facility] 03-10-2023 Note HNO ID: [id number] Author: Darin Colin MD Service: General Surgery Author Type: Resident Type: Plan of Care Filed: 03/10/2023 9:33 AM Note Text: SURGERY PLAN OF CARE NOTE Mel Wall [id number] 03/10/2023 9:30 AM Assessment: SBO with known symptomatic large ventral hernia Patient seen this am continues to endorse abdominal pain. NGT in place with minimal output. Plan - Continue NPO, NGT - Pain control: Multimodal - Will discuss with staff regarding possible surgical intervention this admission - Currently reconciling and obtain OSH surgical reports Darin Colin MD Vascular [facility], PGY 1 [id number] [facility] 03-10-2023 Note HNO ID: [id number] Author: Regis Sam RN Service: ? Author Type: Registered Nurse Type: Nursing Progress Note Filed: 03/10/2023 8:58 AM Note Text: Request sent to day team for ok to use NG communication order. [facility] 03-09-2023 History of Past i llness Narrative Problem Noted Date Resolved Date Bowel obstruction 03/09/2023 03/09/2023 Abdominal pain 06/10/2019 06/11/2019 documented as of this encounter (statuses as of 03/15/2023) [facility]05-31-2023 History of Past illness Narrative* Problem Noted Date Diagnosed Date Resolved Date Bowel obstruction 03/09/2023 03/09/2023 Abdominal pain 06/10/2019 06/11/2019 documented as of this encounter (statuses as of 07/26/2023) [facility] History of Past illness Narrative* Problem Noted Date Diagnosed Date Resolved Date Bowel obstruction 03/09/2023 03/09/2023 Abdominal pain 06/10/2019 06/11/2019 documented as of this encounter (statuses as of 08/31/2023) [facility]05-05-2023 NoteHNO ID: [id number] Author: Sally Gonzalez APRN.WIRE INSERTER Service: ? Author Type: Nurse Practitioner Type: Progress Notes Filed: 02/11/2023 3:49 PM Note Text: Patient did not log in for her virtual appointment with the provider today. She did not answer her phone when she was called prior to the appointment time.[facility]05-05[facility] History of Present illness Narrative* Sally Gonzalez APRN.CNP - 02/11/2023 3:48 PM EDT Patient did not log in for her virtual appointment with the provider today. She did not answer her phone when she was called prior to the appointment time. documented in this encounterProm[facility] History of Present illness Narrative* Tom Koehler MD - 02/09/2023 12:15 PM EDT Chief Complaint Patient presents with Consult Discuss surgery option +++++++++++++++++++++++++++++++++++++++++++++++++++++++++ HPI +++++++++++++++++++++++++++++++++++++++++++++++++++++++++ She has an incisional hernia with defect measuring 12cm across. Body mass index is 39.11 kg/m . I need her to get down to 210. She understands. In the meantime, I will get all available operativenotes to make sure she has not had a component separation in the past. The patient has a past medical history of Depression. The patient has a past surgical history that includes appendectomy; cholecystectomy; bypass gastricw/ janel-en-y gastroenterostomy open; hernia repair; and tonsillectomy. The patients family history is not on file. The patient has a current medication list which includes the following prescription(s): buspirone hcl, fluoxetine, and fluoxetine. The patient is is allergic to ondansetron and ketorolac tromethamine. The patient reports that she has quit smoking. She has never used smokeless tobacco. She reports that she does not currently use alcohol. She reports current drug use. Drug: Marijuana. I have reviewed the patient's medical history in detail and updated the computerized patient record. +++++++++++++++++++++++++++++++++++++++++++++++++++++++++ REVIEW OF SYSTEMS +++++++++++++++++++++++++++++++++++++++++++++++++++++++++ CONSTITUTIONAL > >Normal ORIENTATION X 3 MOOD/AFFECT > > >Normal SKIN > > > >Normal EYES > > > >Normal HEENT > > > >Normal CARDIOVASCULAR > >Normal RESPIRATORY > > >Normal GASTROINTESTINAL > >Normal BALAJI > > > >Normal INTEGUMENTARY > >Normal MUSCULOSKELETAL > >Normal NEUROLOGICAL > > >Normal HEMAT/LYMPH > > >Normal ALL/IMMUN > > >Normal PSYCHIATRIC > > >Normal ENDOCRINE > > >Normal ALL OTHERS > > >Normal +++++++++++++++++++++++++++++++++++++++++++++++++++++++++ PHYSICAL EXAM +++++++++++++++++++++++++++++++++++++++++++++++++++++++++ BP 135/68 Pulse 67 Ht 1.651 m (5' 5) Wt 106.6 kg (235 lb) BMI 39.11 kg/m Smoking Status Former GENERAL EYES Normal Conjuctivae and lids > > >Normal PERRLA > > > > >Normal EOMI > > > > >Normal HEENT Normal External Ears and Nose > > >Normal NECK Normal Thyroid > > > > >Normal No masses, symmetry, no crepitus >Normal RESPIRATORY Normal Respiratory Effort > > > >Normal Percussion > > > >Normal Palpitation > > > > >Normal Auscultation > > > >Normal CARDIOVASCULAR Normal Palpitation > > > > >Normal Ausculation shows no MRG > >Normal CCE > > > > >Normal +++++++++++++++++++++++++++++++++++++++++++++++++++++++++ ABDOMEN Normal Masses or Tenderness > > >No Hepatosplenomegaly > >No Herrnias > > > > >Yes, large incisional hernia, loss of domain. +++++++++++++++++++++++++++++++++++++++++++++++++++++++++ GENITOURINARY Normal Normal LYMPHATIC Normal Cervical Nodes > > > >Normal Supraclavicular Nodes > > >Normal Axillary Nodes > > > >Normal Groin Nodes > > >Normal MUSCULOSKELETAL Normal Gait and Station > > > >Normal SKIN Normal Inspection and Palpitation > > >Normal +++++++++++++++++++++++++++++++++++++++++++++++++++++++++ TESTS/IMAGING +++++++++++++++++++++++++++++++++++++++++++++++++++++++++ ULTRASOUND CCK-HIDA SCAN UGI-SBFT CT SCAN-A/P ABDOMINAL MRI COLONOSCOPY +++++++++++++++++++++++++++++++++++++++++++++++++++++++++ ASSESSMENT +++++++++++++++++++++++++++++++++++++++++++++++++++++++++ DIAGNOSIS: ++++++++++++++++++++++++++++++++++++++++++++++++++++ PLAN ++++++++++++++++++++++++++++++++++++++++++++++++++++ I recommend proceeding with above. Will attempt robotic TAR, may need open due to adhesions. Treatment alternatives were discussed. Discussed aspects of surgical intervention, methods, risks (including by not limited to infection, bleeding, hematoma, and perforation of the intestings or solid organs) and the risks of general anesthetic including SC, CVA, sudden or even reaction to anesthetic medications. The patient understands the risks, any and all questions were answered to the patient's satisfaction. Patient does wish to proceed with surgery. Written consent was obtained. This was a 20 minute or more consultation, the majority of time was spent in cyha-ab-wuto contact with the patient and counseling her regarding the current diagnosis. [facility] Miscellaneous Notes* Telephone Encounter - Tammy Luong RN - 01/28/2023 2:25 PM EDT Patient calling Sally for request of three medication refills, as pended. CHRISTINA: 11/23/22 NOV: 02/11/23 Please contact patient if unable to send refills. Thank you. documented in this encounterProm[facility]23 NoteHNO ID: [id number] Author: Sally Gonzalez APRN.WIRE INSERTER Service: ? Author Type: Nurse Practitioner Type: Progress Notes Filed: 01/10/2023 5:37 PM Note Text: The patient did not log in for her virtual visit with the provider today. She did not answer her phone when she was contacted prior to the appointment time.[facility]02-14-2023 NoteHNO ID: [id number] Author: Sally Gonzalez APRN.MAHENDRA Service: ? Author Type: Nurse Practitioner Type: Progress Notes Filed: 11/23/2022 10:21 PM Note Text: PSYC FOLLOW UP - PSYCHIATRIC PROGRESS NOTE DIAGNOSIS: Panic disorder with agoraphobia OCD Chronic PTSD MDD, recurrent, in partial remission GAF: -60-51 Moderate symptoms or moderate difficulty in social, occupational or school functioning. TREATMENT PLAN: Increase Prozac to address her anxiety and OCD symptoms. Continue Buspar at the same dose. Schedule an appointment for trauma focused and EMDR therapy. Follow up in 6 weeks. Medication Update: Prozac 40 mg - take 2 capsules once daily; take with 20 mg capsule. Prozac 20 mg - take 1 capsule once daily; take with two 40 mg capsules. Continue Buspar at the same dose. The effects and side effects of all the medications were reviewed in detail with the patient. She is in agreement with the treatment plan and aware to reach out with any questions, concerns, or worsening of symptoms prior to the next appointment. CC: Follow up regarding mood and anxiety With the patient consent, visit was performed virtually. HPI: Mel Wall is a 37 year old Female with a history of panic disorder, OCD, PTSD, and MDD presenting today for follow-up. Date of last visit: 05/31/2022 Plan from last visit: Increase Prozac to address her anxiety and OCD symptoms. Change Buspar dosing to twice a day so it is easier to remember to take the medication. Schedule an appointment for individual psychotherapy and EMDR if she would like she engage in trauma focused therapy. Follow up in 4 weeks. 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 Continues to struggle with anxiety. She has been struggling with more issues regarding overstimulation and this manifests in irritability. She continues to take her Prozac at 80 mg and Buspar at 30 mg twice daily. She feels that that even with these medications, she struggles with anxiety in public places. She is noticing that her OCD symptoms are flaring up, regarding symmetry and colors. She tried a therapist but did not connect well with one she tried. She is motivated to engage in therapy again. She has been free of marijuana use for 2 weeks. She has not smoked nicotine since April of 2022. Denies any side effects from her medications. She has been exercising and hiking. She was happy to report that she is losing weight. She denies concerns with sleep. Interval Progress: Slightly improved Risks and benefits of the medication, including any black box warnings, were discussed with the patient. Social History: See HPI PATIENT DATA: Generalized Anxiety Disorder Scale (JADEN-7) JADEN - 7 SCORES 06/24/2022 08/17/2022 11/23/2022 JADEN-7 Score 20 19 21 (0-4) minimal anxiety, (5-9) mild anxiety, (10-14) moderate anxiety, (15-21) severe anxiety Patient Health Questionnaire (PHQ-9) PHQ-9 06/24/2022 08/17/2022 11/23/2022 Score 11 20 18 (0-4) minimal depression, (5-9) mild depression, (10-14) moderate depression, (15-19) moderately severe depression, (20-27) severe depression ROS: See HPI General: Negative for fever, malaise, unintentional weight loss HEENT: Negative for recent changes in vision or hearing, no nasal drainage Respiratory: Negative for cough, wheezing or SOB Cardiovascular: Negative for chest pain GI: Negative for nausea, vomiting, change in bowel habits MUSCULOSKELETAL: Negative for acute back or joint pain SKIN: Negative for rash NEURO: Negative for headaches, seizures, focal neurological deficits All other systems negative. VITAL SIGNS: BP Temp Pulse Resp SpO2 MENTAL STATUS EXAMINATION: Appearance: Appropriately groomed, appears stated age Behavior: Appropriately engaged Psychomotor: No psychomotor agitation Cognition Level of Consciousness: Awake and alert. No fluctuation in wakefulness. Orientation: Grossly oriented Memory: Intact Attention/Concentration: Good Fund of Knowledge: Able to demonstrate an awareness of current events. Mood: Euthymic Affect: Congruent to mood Speech/Language: Appropriate tone, prosody, willie, phonetics, and syntax Thought Form: Goal-directed. No loosening of associations. Thought Content: No delusions noted or endorsed. Perceptual Disturbances: Did not appear to respond to auditory stimuli. Safety: Suicidal Ideations: No suicidal ideation, intent or plan. Homicidal Ideations: No homicidal ideation, intent or plan. Insight: Appropriate Judgment: Appropriate I spent a total of 28 minutes on the date of the service which included preparing to see the patient, [id number] patient care, completing clinical documentation, and counseling and educating the patient/family/caregiver, ordering medications/labs. Sally Gonzalez APRN.CNP November 23, 2022 3:04 PM This note was partially generated using (more content not included)... [facility]02-14-2023 Instructions* Patient Instructions* Sally Gonzalez APRN.CNP - 11/23/2022 4:54 PM EST Gabrielle Staley, It was good to talk with you today. Below is a summary of the plan that we discussed during your appointment for reference. Of course, if you have any questions or concerns do not hesitate to reach out to me via a message or call. Best, Sally Gonzalez APRN.CNP PLAN AND FOLLOW UP: YOU SHOULD SEEK IMMEDIATE MEDICAL ATTENTION AT THE NEAREST EMERGENCY DEPARTMENT OR BY CALLING 911, IF ANY OF THE FOLLOWING OCCURS: - New or worsening thoughts of harming yourself (suicidal thoughts) or others (homicidal thoughts) - Not feeling safe at home or worrying about your ability to remain safe at home If you are having thoughts of harming yourself or others, then you can: - Call the National Suicide Hotline at 0-511-TAEJSSX ( ) or 4-272-565-TALK (6792) - Text 3HFSV to 305209 Medication Update: Prozac 40 mg - take 2 capsules once daily; take with 20 mg capsule. Prozac 20 mg - take 1 capsule once daily; take with two 40 mg capsules. Continue Buspar at the same dose. Other: You can go to [facility] to find a provider for therapy and EMDR Next appointment: --Schedule in 6 weeks or sooner if needed -- You may call the department appointment line at [phone] to schedule your appointment. -- Please call my nurse Sintia at [phone] or send me a message in MyChart with any questions or concerns between appointments. documented in this encounterProm[facility]02-14-[facility] History of Present illness Narrative* Sally Gonzalez APRN.MAHENDRA - 11/23/2022 3:04 PM EST Images from the original note were not included. PSYC FOLLOW UP - PSYCHIATRIC PROGRESS NOTE DIAGNOSIS: Panic disorder with agoraphobia OCD Chronic PTSD MDD, recurrent, in partial remission GAF: -60-51 Moderate symptoms or moderate difficulty in social, occupational or school functioning. TREATMENT PLAN: Increase Prozac to address her anxiety and OCD symptoms. Continue Buspar at the same dose. Schedule an appointment for trauma focused and EMDR therapy. Follow up in 6 weeks. Medication Update: Prozac 40 mg - take 2 capsules once daily; take with 20 mg capsule. Prozac 20 mg - take 1 capsule once daily; take with two 40 mg capsules. Continue Buspar at the same dose. The effects and side effects of all the medications were reviewed in detail with the patient. She is in agreement with the treatment plan and aware to reach out with any questions, concerns, or worsening of symptoms prior to the next appointment. CC: Follow up regarding mood and anxiety With the patient consent, visit was performed virtually. HPI: Mel Wall is a 37 year old Female with a history of panic disorder, OCD, PTSD, and MDD presenting today for follow-up. Date of last visit: 05/31/2022 Plan from last visit: Increase Prozac to address her anxiety and OCD symptoms. Change Buspar dosing to twice a day so it is easier to remember to take the medication. Schedule an appointment for individual psychotherapy and EMDR if she would like she engage in trauma focused therapy. Follow up in 4 weeks. 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 Continues to struggle with anxiety. She has been struggling with more issues regarding overstimulation and this manifests in irritability. She continues to take her Prozac at 80 mg and Buspar at 30 mg twice daily. She feels that that evenwith these medications, she struggles with anxiety in public places. She is noticing that her OCD symptoms are flaring up, regarding symmetry and colors. She tried a therapist but did not connect well with one she tried. She is motivated to engage in therapy again. She has been free of marijuana use for 2 weeks. She has not smoked nicotine since April of 2022. Denies any side effects from her medications. She has been exercising and hiking. She was happy to report that she is losing weight. She denies concerns with sleep. Interval Progress: Slightly improved Risks and benefits of the medication, including any black box warnings, were discussed with the patient. Social History: See HPI PATIENT DATA: Generalized Anxiety Disorder Scale (JADEN-7) JADEN - 7 SCORES 06/24/2022 08/17/2022 11/23/2022 JADEN-7 Score 20 19 21 (0-4) minimal anxiety, (5-9) mild anxiety, (10-14) moderate anxiety, (15-21) severe anxiety Patient Health Questionnaire (PHQ-9) PHQ-9 06/24/2022 08/17/2022 11/23/2022 Score 11 20 18 (0-4) minimal depression, (5-9) mild depression, (10-14) moderate depression, (15-19) moderately severe depression, (20-27) severe depression ROS: See HPI General: Negative for fever, malaise, unintentional weight loss HEENT: Negative for recent changes in vision or hearing, no nasal drainage Respiratory: Negative for cough, wheezing or SOB Cardiovascular: Negative for chest pain GI: Negative for nausea, vomiting, change in bowel habits MUSCULOSKELETAL: Negative for acute back or joint pain SKIN: Negative for rash NEURO: Negative for headaches, seizures, focal neurological deficits All other systems negative. VITAL SIGNS: BP Temp Pulse Resp SpO2 MENTAL STATUS EXAMINATION: Appearance: Appropriately groomed, appears stated age Behavior: Appropriately engaged Psychomotor: No psychomotor agitation Cognition Level of Consciousness: Awake and alert. No fluctuation in wakefulness. Orientation: Grossly oriented Memory: Intact Attention/Concentration: Good Fund of Knowledge: Able to demonstrate an awareness of current events. Mood: Euthymic Affect: Congruent to mood Speech/Language: Appropriate tone, prosody, willie, phonetics, and syntax Thought Form: Goal-directed. No loosening of associations. Thought Content: No delusions noted or endorsed. Perceptual Disturbances: Did not appear to respond to auditory stimuli. Safety: Suicidal Ideations: No suicidal ideation, intent or plan. Homicidal Ideations: No homicidal ideation, intent or plan. Insight: Appropriate Judgment: Appropriate I spent a total of 28 minutes on the date of the service which included preparing to see the patient, [id number] patient care, completing clinical documentation, and counseling and educating the patient/family/caregiver, ordering medications/labs. Sally Gonzalez APRN.CNP November 23, 2022 3:04 PM This note was partially generated using 3dplusme voice recognition system. Note was reviewed for accuracy. There may be minor misspellings or grammar miscues with [employer] voice recognition. documented in this encounterPromedica [facility]01-20-2023 NoteHNO ID: [id number] Author: Chad Lilly APRN.MAHENDRA Service: ? Author Type: Nurse Practitioner Type: Progress Notes Filed: 10/29/2022 2:08 PM Note Text: Subjective HPI HPI Mel Wall is a 37 year old female who presents today for CC of dental pain at broken tooth. This started 2 days ago. Has tried otc medication for relief. Symptoms are worsened by nothing. Risk factors hx of dental infections. Denies possibility of being . .Patient presents with: Dental Problem: Broken tooth that is now infected x2 days PAST MEDICAL HISTORY Diagnosis Date Abdominal wall mass of left lower quadrant 07/24/2013 Scar tissue with abscess. Resolved Anxiety Bipolar 1 disorder (HCC) Chronic pain syndrome 08/06/2019 Seeing [facility]: Dr. Moore Depression Headache(784.0) 10/18/2013 Obesity, Class III, BMI 40-49.9 (morbid obesity) (HCC) 01/24/2018 Panic disorder 11/05/[address] Dukes Social phobia 11/05/2014 Ventral hernia 12/21/2019 PAST SURGICAL HISTORY Procedure Laterality Date APPENDECTOMY HX 2007 DELIVERY ONLY ,, COLONOSCOPY 2007 EXC TUMOR SOFT TISSUE ABDOMINAL WALL SUBQ 3+CM 08/02/13 LLQ prior incision, stitch granuloma/chronic abscess INCISION AND DRAINAGE COMPLEX PO WOUND INFECTION 08/09/13 LAPS SURG CHOLECYSTECTOMY W/CHOLANGIOGRAPHY 03-08-07 PAST SURGICAL HISTORY OF hernia repair x6 PAST SURGICAL HISTORY OF 06/10/2019 Open lysis of adhesions JANEL-EN-Y W/GASTROENTEROS 10/23/2008 Division of the duodenum with Janel-en-Y duodenojejunostomy - op note describes a duodenal switch procedure TUBAL LIGATION, ALLERGIES Toradol [Ketorolac] and Zofran [Ondansetron Hcl (Pf)] MEDICATIONS busPIRone HCl 30 mg tablet take 1/2 tablet by mouth every morning and 1 tablet every evening FLUoxetine (PROZAC) 40 mg capsule Take 2 capsules by mouth once daily. amoxicillin (AMOXIL) 875 mg tablet Take 1 tablet by mouth twice daily for 10 days. FAMILY HISTORY Problem Relation Age of Onset Panic Disorder Mother Anxiety disorder Mother Bipolar disorder Mother Depression Mother Cervical Cancer Mother Cancer Mother ovarian cancer Coronary Artery Disease Father 53 Diabetes Father Hypertension Father Cancer Sister ovarian cancer Coronary Artery Disease Maternal Uncle 50's Cancer Maternal Grandmother ovarian cancer Osteoporosis Maternal Grandmother Cancer Paternal Grandmother ovarian cancer Diabetes Paternal Grandmother Social History Tobacco Use Smoking status: Former Packs/day: 0.50 Years: 1.00 Pack years: 0.50 Types: Cigarettes Quit date: 11/10/2011 Years since quittin.9 Smokeless tobacco: Never Substance Use Topics Alcohol use: Not Currently Drug use: Yes Types: Marijuana Comment: for anxiety and for sleep ROS Objective Blood pressure 126/88, pulse 87, temperature 36.8 ?C (98.2 ?F), resp. rate 20, weight 113.9 kg (251 lb 3.2 oz), last menstrual period 05/27/2021, SpO2 97 %. Physical Exam Constitutional: General: She is not in acute distress. Appearance: She is not toxic-appearing or diaphoretic. HENT: Head: Normocephalic and atraumatic. Nose: Nose normal. Mouth/Throat: Lips: [place]. Mouth: Mucous membranes are moist. Dentition: Abnormal dentition. Dental tenderness and dental caries present. No gum lesions. Pulmonary: Effort: Pulmonary effort is normal. No accessory muscle usage or respiratory distress. Lymphadenopathy: Cervical: No cervical adenopathy. Right cervical: No superficial cervical adenopathy. Left cervical: No superficial cervical adenopathy. Neurological: Mental Status: She is alert and oriented to person, place, and time. ASSESSMENT/PLAN: 1. Toothache - ICD9: 525.9, ICD10: K08.89 Take medication as ordered See dentist anne Follow up if signs of infection worsen - AMOXICILLIN 875 MG TABLET Chad Lilly APRN.CNPOhio[facility]-20-[facility] History of Present illness Narrative* Chad Lilly APRN.WIRE INSERTER - 10/29/2022 2:05 PM EST Images from the original note were not included. Subjective HPI HPI Mel Wall is a 37 year old female who presents today for CC of dental pain at broken tooth. This started 2 days ago. Has tried otc medication for relief. Symptoms are worsened by nothing. Risk factors hx of dental infections. Denies possibility of being . .Patient presents with: Dental Problem: Broken tooth that is now infected x2 days PAST MEDICAL HISTORY Diagnosis Date Abdominal wall mass of left lower quadrant 07/24/2013 Scar tissue with abscess. Resolved Anxiety Bipolar 1 disorder (HCC) Chronic pain syndrome 08/06/2019 Seeing [facility]: Dr. Moore Depression Headache(784.0) 10/18/2013 Obesity, Class III, BMI 40-49.9 (morbid obesity) (HCC) 01/24/2018 Panic disorder 11/05/[address] Dukes Social phobia 11/05/2014 Ventral hernia 12/21/2019 PAST SURGICAL HISTORY Procedure Laterality Date APPENDECTOMY HX 2007 DELIVERY ONLY ,, COLONOSCOPY 2007 EXC TUMOR SOFT TISSUE ABDOMINAL WALL SUBQ 3+CM 08/02/13 LLQ prior incision, stitch granuloma/chronic abscess INCISION & DRAINAGE COMPLEX PO WOUND INFECTION 08/09/13 LAPS SURG CHOLECYSTECTOMY W/CHOLANGIOGRAPHY 07 PAST SURGICAL HISTORY OF hernia repair x6 PAST SURGICAL HISTORY OF 06/10/2019 Open lysis of adhesions JANEL-EN-Y W/GASTROENTEROS 10/23/2008 Division of the duodenum with Janel-en-Y duodenojejunostomy - op note describes a duodenal switch procedure TUBAL LIGATION, ALLERGIES Toradol [Ketorolac] and Zofran [Ondansetron Hcl (Pf)] MEDICATIONS busPIRone HCl 30 mg tablet take 1/2 tablet by mouth every morning and 1 tablet every evening FLUoxetine (PROZAC) 40 mg capsule Take 2 capsules by mouth once daily. amoxicillin (AMOXIL) 875 mg tablet Take 1 tablet by mouth twice daily for 10 days. FAMILY HISTORY Problem Relation Age of Onset Panic Disorder Mother Anxiety disorder Mother Bipolar disorder Mother Depression Mother Cervical Cancer Mother Cancer Mother ovarian cancer Coronary Artery Disease Father 53 Diabetes Father Hypertension Father Cancer Sister ovarian cancer Coronary Artery Disease Maternal Uncle 50's Cancer Maternal Grandmother ovarian cancer Osteoporosis Maternal Grandmother Cancer Paternal Grandmother ovarian cancer Diabetes Paternal Grandmother Social History Tobacco Use Smoking status: Former Packs/day: 0.50 Years: 1.00 Pack years: 0.50 Types: Cigarettes Quit date: 11/10/2011 Years since quittin.9 Smokeless tobacco: Never Substance Use Topics Alcohol use: Not Currently Drug use: Yes Types: Marijuana Comment: for anxiety and for sleep ROS Objective Blood pressure 126/88, pulse 87, temperature 36.8 C (98.2 F), resp. rate 20, weight 113.9 kg (251 lb 3.2 oz), last menstrual period 05/27/2021, SpO2 97 %. Physical Exam Constitutional: General: She is not in acute distress. Appearance: She is not toxic-appearing or diaphoretic. HENT: Head: Normocephalic and atraumatic. Nose: Nose normal. Mouth/Throat: Lips: [place]. Mouth: Mucous membranes are moist. Dentition: Abnormal dentition. Dental tenderness and dental caries present. No gum lesions. Pulmonary: Effort: Pulmonary effort is normal. No accessory muscle usage or respiratory distress. Lymphadenopathy: Cervical: No cervical adenopathy. Right cervical: No superficial cervical adenopathy. Left cervical: No superficial cervical adenopathy. Neurological: Mental Status: She is alert and oriented to person, place, and time. ASSESSMENT/PLAN: 1. Toothache - ICD9: 525.9, ICD10: K08.89 Take medication as ordered See dentist anne Follow up if signs of infection worsen - AMOXICILLIN 875 MG TABLET Chad Lilly APRN.MAHENDRA documented in this encounterProm[facility]01-20-2023 Miscellaneous Notes* Telephone Encounter - Sintia Street LPN - 10/29/2022 12:33 PM EST Patient has been identified by name and date of : Yes Requested Prescriptions Pending Prescriptions Disp Refills busPIRone HCl 30 mg tablet FLUoxetine (PROZAC) 40 mg capsule 60 capsule 1 Sig: Take 2 capsules by mouth once daily. RX INSTRUCTIONS: Patient aware RX will be sent to pharmacy. No need to notify patient. Follow up 11/23/2022. Sintia Street LPN * Telephone Encounter - Lou Mckeon - 10/29/2022 12:23 PM EST Patient has been identified by name and date of : Yes, Provider CARLOS Patient phones for refill(s): Requested Prescriptions Pending Prescriptions Disp Refills busPIRone HCl 30 mg tablet FLUoxetine (PROZAC) 40 mg capsule 60 capsule 1 Sig: Take 2 capsules by mouth once daily. Date of last office visit in primary care: 08/24/22 Last 2 Encounter Wt Readings: Date: Wt: 11/10/2021 137 kg (302 lb) 05/19/2021 139.9 kg (308 lb 6.4 oz) Previous labs/tests for medication: Not applicable Please advise. Thank you. Lou Mckeon documented in this encounterPromedica [facility]09-14-2022 Miscellaneous Notes* Telephone Encounter - Sintia Street LPN - 06/23/2022 2:44 PM EDT Patient notified and voices understanding. * Telephone Encounter - Agueda Marrero LPN - 06/23/2022 1:10 PM EDT Pt reports the dose of Buspar was changed at last appt (05/31/22) to 1 1/2 tabs daily. Pt has been taking 2 tabs daily & just realized she was suppose to be taking 1 1/2. Now she is low on pills & needs a refill. Pt reports she is doing well with 2 tabs, reports she is having no side effects. Pt asking if she should continue on 1 1/2 or 2 tabs daily? Pt states she had to go to [place], [place] for a family emergency & will be there a couple more weeks. Please advise & notify pt when refill has been sent. Agueda Marrero LPN documented in this encounterPromedica [facility]07-13-2022 Miscellaneous Notes* Telephone Encounter - Sintia Street LPN - 04/21/2022 9:29 AM EDT Patient has been identified by name and date of : Yes Pending Prescriptions Disp Refills BUSPIRONE 15 MG TABLET 90 tablet 1 Sig: Take 1 tablet by mouth three times daily. ANNIE: No RX INSTRUCTIONS: Patient aware RX will be sent to pharmacy. No need to notify patient. Sintia Street LPN documented in this encounterPromedica [facility]06-21-2022 History of Present illness Narrative* Leeanna Aranda APRN.WIRE INSERTER - 03/30/2022 10:58 AM EDT Chief Complaint Patient presents with: Telemedicine Patient was offered a virtual/telemedicine appointment in lieu of an office visit due to recommendations to reduce patient exposure to COVID-19. Video was used for evaluation of this patient. Patient is aware of limitations of performing the visit without a face to face visit in the office setting and agrees. Patient agrees to the visit: Yes Patient Location: [place] JACQUELYN Wall is a 36 year old female who is contacted today for a virtual visit This is an established patient of Dr. Jose Barron MD Reports: infected tooth. Refers that she broke the tooth a couple of months ago. Refers that later last week, broke the remaining tooth last week. She has an appointment with [facility] in [place] in April. Has notices some facial swelling and discomfort on the right. No fevers/chills. Just some tenderness/pressure from the infection. She has been taking tylenol and ibuprofen for discomfort. Past medical history, appointments, medications, allergies reviewed 03/30/2022 Previous Medical History PAST MEDICAL HISTORY Diagnosis Date Abdominal wall mass of left lower quadrant 07/24/2013 Scar tissue with abscess. Resolved Anxiety Bipolar 1 disorder (HCC) Chronic pain syndrome 08/06/2019 Seeing [facility]: Dr. Moore Depression Headache(784.0) 10/18/2013 Obesity, Class III, BMI 40-49.9 (morbid obesity) (HCC) 01/24/2018 Panic disorder 11/05/[address] Dukes Social phobia 11/05/2014 Ventral hernia 12/21/2019 Previous Surgical History PAST SURGICAL HISTORY Procedure Laterality Date APPENDECTOMY HX 2007 DELIVERY ONLY COLONOSCOPY 2007 EXC TUMOR SOFT TISSUE ABDOMINAL WALL SUBQ 3+CM 08/02/13 LLQ prior incision, stitch granuloma/chronic abscess INCISION & DRAINAGE COMPLEX PO WOUND INFECTION 08/09/13 LAPS SURG CHOLECYSTECTOMY W/CHOLANGIOGRAPHY 03-08-07 PAST SURGICAL HISTORY OF hernia repair x6 PAST SURGICAL HISTORY OF 06/10/2019 Open lysis of adhesions JANEL-EN-Y W/GASTROENTEROS 10/23/2008 Division of the duodenum with Janel-en-Y duodenojejunostomy - op note describes a duodenal switch procedure TUBAL LIGATION, Family History FAMILY HISTORY Problem Relation Age of Onset Panic Disorder Mother Anxiety disorder Mother Bipolar disorder Mother Depression Mother Cervical Cancer Mother Cancer Mother ovarian cancer Coronary Artery Disease Father 53 Diabetes Father Hypertension Father Cancer Sister ovarian cancer Coronary Artery Disease Maternal Uncle 50's Cancer Maternal Grandmother ovarian cancer Osteoporosis Maternal Grandmother Cancer Paternal Grandmother ovarian cancer Diabetes Paternal Grandmother Patient Allergies ALLERGIES Allergen Reactions Toradol [Ketorolac] Hives, Shortness of Breath Zofran [Ondansetron* Hives, Shortness of Breath Current Medications Current Outpatient Medications on File Prior to Visit Medication Sig FLUoxetine HCl (PROZAC) 40 mg capsule Take 1 capsule by mouth once daily. No current facility-administered medications on file prior to visit. Social History Social History Tobacco Use Smoking status: Former Smoker Packs/day: 0.50 Years: 1.00 Pack years: 0.50 Types: Cigarettes Quit date: 11/10/2011 Years since quittin.3 Smokeless tobacco: Never Used Substance Use Topics Alcohol use: Not Currently Drug use: Yes Types: Marijuana Comment: for anxiety and for sleep EXAM: LMP 05/27/2021 Limited exam as visit was completed over the virtual platform. Virtual visit completed using video, limited exam completed. Patient sounds or appears ill: No General Appearance: Well appearing, alert, in no acute distress, well-hydrated, well nourished. Skin: Skin color normal Head: Normocephalic. No facial swelling or redness. EENT: Eyes nonreddened. No discharge. External ears nonreddened and no swelling. Broken upper toothon the right. Neck: No mass or lesions. No swelling. FROM Patient is unable to speak in complete sentences: No Patient has labored breathing: No. Patient is audibly coughing: No Psych: Attitude - cooperative, easily engaged in conversation Affect - Euthymic, normal mood Mental status: Alert. Speech is clear and fluent with good repetition, comprehension Appearance - Normal hygiene and grooming appropriate Coordination: No abnormal or extraneous movements. Gait/Stance: Posture is normal. Health Maintenance List COVID-19 VACCINE(1) Never done HEPATITIS C SCREENING Never done HIV SCREENING Never done DTAP,TDAP,TD(1 - Tdap) Never done HPV TESTING Never done PAP TESTING due on 04/09/2018 INFLUENZA(Season Ended) due on 06/10/2022 Data reviewed Last 5 Encounter BP Readings: Date: BP: 11/10/2021 158/76 06/03/2021 122/78 05/27/2021 138/82 05/19/2021 130/86 05/16/2021 128/68 BMI Readings from Last 5 Encounters: 11/10/21 : 50.26 kg/m 05/19/21 : 51.32 kg/m 05/16/21 : 51.59 kg/m 08/21/20 : 48.76 kg/m 01/24/20 : 49.59 kg/m Last 5 Encounter Wt Readings: Date: Wt: 11/10/2021 137 kg (302 lb) 05/19/2021 139.9 kg (308 lb 6.4 oz) 05/16/2021 140.6 kg (310 lb) 08/21/2020 132.9 kg (293 lb) 01/23/2020 135.2 kg (298 lb) Medication and allergy list reviewed, reconciled and updated 03/30/2022 ASSESSMENT/PLAN: 1. Dental infection - ICD9: 522.4, ICD10: K04.7 Will go ahead and start liang lewis Discussed importance of follow-up w/ dentist. - PENICILLIN V POTASSIUM 500 MG TABLET Discussed treatment plan and patient voices understanding. Patient's questions answered appropriately. Medications and potential side effects were discussed and patient voices understanding. Return to the office as scheduled or as needed for worsening/no improvement. Leeanna Aranda APRN.CNP documented in this encounterPromedica [facility]04-01-2022 Instructions* Patient Instructions* Sally Gonzalez APRN.CNP - 01/08/2022 4:28 PM EDT Gabrielle Staley, It was good to talk with you today. Below is a summary of the plan that we discussed during your appointment for reference. Of course, if you have any questions or concerns do not hesitate to reach out to me via a message or call. Best, Sally Gonzalez APRN.CNP PLAN AND FOLLOW UP: YOU SHOULD SEEK IMMEDIATE MEDICAL ATTENTION AT THE NEAREST EMERGENCY DEPARTMENT OR BY CALLING 911, IF ANY OF THE FOLLOWING OCCURS: - New or worsening thoughts of harming yourself (suicidal thoughts) or others (homicidal thoughts) - Not feeling safe at home or worrying about your ability to remain safe at home If you are having thoughts of harming yourself or others, then you can: - Call the National Suicide Hotline at 2-352-TEXDGPF ( ) or 9-710-576-TALK (6867) - Text 2NCUJ to 827677 Medication Update: 1. Prozac 40 mg - take 1 capsule once daily. 2. Buspar 15 mg - take 1 tablet three times daily. 3. Stop Gabapentin. 4. Take 1 to 3 mg of melatonin with dinner time instead. Lab work: Complete urine lab prior to the next appointment. Other: Schedule an appointment for trauma focused therapy. Next appointment: --Schedule in 4 to 6 weeks or sooner if needed -- You may call the department appointment line at [phone] to schedule your appointment. -- Please call my nurse Sintia at [phone] or send me a message in OneName with any questions or concerns between appointments. documented in this encounterPromedica [facility]04-01-2022 History of Present illness Narrative* Sally Gonzalez APRN.CNP - 01/08/2022 3:55 PM EDT Images from the original note were not included. PSYC FOLLOW UP - PSYCHIATRIC PROGRESS NOTE DIAGNOSIS: 1. Panic Disorder with Agoraphobia 2. OCD 3. PTSD, Chronic 4. MDD, recurrent, severe without psychotic symptoms. 5. Marijuana use GAF: -60-51 Moderate symptoms or moderate difficulty in social, occupational or school functioning. TREATMENT PLAN: 1. Increase Prozac to address mood and anxiety symptoms 2. Increase Buspar to help with anxiety symptoms. 3. Discontinue Gabapentin due to daytime drowsiness side effects. 4. Continue meditation and melatonin to help with sleep difficulties. 5. Complete urine tox screen prior to the next appointment. 6. Schedule an appointment for individual psychotherapy. Medication Update: 1. Prozac 40 mg - take 1 capsule once daily. 2. Buspar 15 mg - take 1 tablet three times daily. 3. Stop Gabapentin. 4. Take 1 to 3 mg of melatonin with dinner time instead. The effects and side effects of all the medications were reviewed in detail with the patient. She is in agreement with the treatment plan. She is aware to reach out with any questions, concerns, or worsening of symptoms prior to the next appointment. CC: Anxiety and Depression With the patient consent, visit was performed virtually. HPI: Mel Wall is a 36 year old Female with a history of panic disorder, ocd, ptsd, and depression presenting today for follow-up. Date of last visit: 11/10/2021 Plan from last visit: 1. Start Prozac to help with her anxiety and panic symptoms. 2. Restart BuSpar and asked the patient to take it consistently to help with her panic symptoms. 3. Utilize gabapentin at bedtime to help with sleep difficulties and anxiety at bedtime. 4. Counseled to abstain from marijuana use. 5. Encouraged the patient to schedule an appointment for EMDR therapy to process her trauma relatedto her brother. 6. Complete urine toxicology screen. Today Mel shares that her Prozac and Buspar has been helping with anxiety. She only takes Gabapentin as needed as she does not like how she feels in the morning. She has been sleeping better since improvement in her anxiety. She is going to rebuilt her stomach to fix her hernia. She will be getting that done at [facility]. She has started a keto diet and has been able to lose 17 pounds. She has to get her BMI under 40. She has noticed improvement in her emotional eating habits since her mood and anxiety have improved. She hasbeen practicing intermittent fasting. She has been monitoring her screen time and meditating prior to bedtime. She would like to try natural options instead of another medication for sleep. She has used melatonin in the past. But is willing to try it with dinner to prevent day time drowsiness. She has been consistent in taking her Buspar and Prozac. She denies any side effects related to them. She is in agreement to try a higher dose of her medications to address her mood and anxiety symptoms. She has a tendency to stop medications in the past but is motivated to continue them this time. She has been able to decrease her Marijuana use. She uses it now about once a week. She has been able to decrease use due to improvement in her anxiety. Does not feel that she depends on Marijuana tomanage her anxiety. She has been referred by a friend to see a psychotherapist for trauma focused therapy in [place]. She still has to call and make an appointment. She was encouraged to do that after this appointment. Interval Progress: Improved Risks and benefits of the medication, including any black box warnings, were discussed with the patient. Social History: No change PATIENT DATA: Generalized Anxiety Disorder Scale (JADEN-7) JADEN - 7 SCORES 11/06/2021 01/07/2022 JADEN-7 Score 21 20 (0-4) minimal anxiety, (5-9) mild anxiety, (10-14) moderate anxiety, (15-21) severe anxiety Patient Health Questionnaire (PHQ-9) PHQ-9 05/26/2021 11/06/2021 01/07/2022 Score 21 25 18 (0-4) minimal depression, (5-9) mild depression, (10-14) moderate depression, (15-19) moderately severe depression, (20-27) severe depression ROS: See HPI General: Negative for fever, malaise, unintentional weight loss HEENT: Negative for recent changes in vision or hearing, no nasal drainage Respiratory: Negative for cough, wheezing or SOB Cardiovascular: Negative for chest pain GI: Negative for nausea, vomiting, change in bowel habits MUSCULOSKELETAL: Negative for acute back or joint pain SKIN: Negative for rash NEURO: Negative for headaches, seizures, focal neurological deficits All other systems negative. MENTAL STATUS EXAMINATION: Appearance: Appropriately groomed, appears stated age Behavior: Appropriately engaged Psychomotor: No psychomotor agitation Cognition Level of Consciousness: Awake and alert. No fluctuation in wakefulness. Orientation: Grossly oriented Memory: Intact Attention/Concentration: Good Fund of Knowledge: Able to demonstrate an awareness of current events. Mood: Euthymic Affect: Full range Speech/Language: Appropriate tone, prosody, willie, phonetics, and syntax Thought Form: Goal-directed. No loosening of associations. Thought Content: No delusions noted or endorsed. Perceptual Disturbances: Did not appear to respond to auditory stimuli. Safety: Suicidal Ideations: No suicidal ideation, intent or plan. Homicidal Ideations: No homicidal ideation, intent or plan. Insight: Appropriate Judgment: Appropriate I spent a total of 28 minutes on the date of the service which included preparing to see the patient, [id number] patient care, completing clinical documentation, and counseling and educating the patient/family/caregiver, ordering medications/labs. Sally Gonzalez APRN.CNP January 08, 2022 3:55 PM documented in this encounterPromedica [facility] Hospital11-11-2021 History of Present illness Narrative* Jose uCrtis MD - 08/20/2021 1:40 PM EST Subjective Patient ID: Mel Wall is a 36 y.o. female. HPI Patient referred from the ED for evaluation of a ventral hernia. Patient was seen in the ED in Marchand April for abdominal pain. Patient reports a prior emergency abdominal operation in 2006, an intestinal bypass of some sort. The patient had a hernia operation emergently in 2015 for an incarcerated hernia. She reports she hashad 3 or 4 additional hernia operations, last one in March 2020, all mesh has been explanted she tells me. She has unfortunately developed a massive abdominal incisional hernia since then. I reviewed CT images from April previously and today with the patient. She has nearly all of her intra-abdominalcontents herniated, with a portion of the anterior stomach, portion of the left lobe of the liver, and essentially all bowel beyond the ligament of treitz to the distal transverse colon is herniated, with loss of domain and a defect measuring at least 12 wide. She reports she has seen other surgeons but they have turned her down. She was recommended for weight loss surgery but was not able to have this due to her anatomy. She states she has been seen in [place] and [facility]. Past Medical History: Diagnosis Date Bipolar 1 disorder (HCC) Headache Obesity Omental infarction (HCC) Panic disorder Social phobia Ventral hernia, recurrent Past Surgical History: Procedure Laterality Date APPENDECTOMY 2006 SECTION CHOLECYSTECTOMY 2006 laparoscopic COLONOSCOPY 2008 GASTROENTEROSTOMY; JANEL-EN-Y 2009 HERNIA REPAIR TUBAL LIGATION has a current medication list which includes the following prescription(s): multivitamin. Allergies: Toradol [ketorolac] and Zofran [ondansetron hcl] Social History Socioeconomic History Marital status: Spouse name: Not on file Number of children: Not on file Years of education: Not on file Highest education level: Not on file Occupational History Not on file Tobacco Use Smoking status: Former Smoker Smokeless tobacco: Never Used Substance and Sexual Activity Alcohol use: Not Currently Drug use: Yes Types: Marijuana Comment: occ Sexual activity: Not on file Other Topics Concern Not on file Social History Narrative Not on file Social Determinants of Health Financial Resource Strain: Difficulty of Paying Living Expenses: Not on file Food Insecurity: Worried About Running Out of Food in the Last Year: Not on file Ran Out of Food in the Last Year: Not on file Transportation Needs: Lack of Transportation (Medical): Not on file Lack of Transportation (Non-Medical): Not on file Physical Activity: Days of Exercise per Week: Not on file Minutes of Exercise per Session: Not on file Stress: Feeling of Stress : Not on file Social Connections: Frequency of Communication with Friends and Family: Not on file Frequency of Social Gatherings with Friends and Family: Not on file Attends Adventism Services: Not on file Active Member of Clubs or Organizations: Not on file Attends Club or Organization Meetings: Not on file Marital Status: Not on file Housing Stability: Unable to Pay for Housing in the Last Year: Not on file Number of Places Lived in the Last Year: Not on file Unstable Housing in the Last Year: Not on file Family History Problem Relation Age of Onset Ovarian cancer Mother Cervical cancer Mother Hypertension Father Diabetes Father Coronary artery disease Father Ovarian cancer Maternal Grandmother Osteoporosis Maternal Grandmother Diabetes Paternal Grandmother Ovarian cancer Sister Thyroid disease Maternal Uncle Review of Systems Constitutional: Positive for fatigue. Negative for activity change, appetite change, chills, fever and unexpected weight change. HENT: Negative for hearing loss, nosebleeds and trouble swallowing. Eyes: Negative for visual disturbance. Respiratory: Negative for cough, shortness of breath, wheezing and stridor. Cardiovascular: Negative for chest pain and leg swelling. Gastrointestinal: Positive for abdominal pain and nausea. Negative for abdominal distention, blood in stool, constipation, diarrhea and vomiting. Endocrine: Negative for cold intolerance and heat intolerance. Genitourinary: Negative for difficulty urinating, frequency, hematuria and urgency. Musculoskeletal: Negative for arthralgias. Skin: Negative for rash and wound. Allergic/Immunologic: Negative for environmental allergies and food allergies. Neurological: Negative for seizures, syncope, weakness and numbness. Hematological: Negative for adenopathy. Does not bruise/bleed easily. Psychiatric/Behavioral: Negative for agitation and dysphoric mood. The patient is nervous/anxious. Objective Physical Exam Vitals reviewed. Constitutional: General: She is not in acute distress. Appearance: Normal appearance. She is well-developed. She is not diaphoretic. HENT: Head: Normocephalic and atraumatic. Right Ear: External ear normal. Left Ear: External ear normal. Nose: Nose normal. Eyes: Pupils: Pupils are equal, round, and reactive to light. Neck: Thyroid: No thyromegaly. Vascular: No JVD. Trachea: No tracheal deviation. Cardiovascular: Rate and Rhythm: Normal rate and regular rhythm. Heart sounds: Normal heart sounds. Pulmonary: Effort: Pulmonary effort is normal. No respiratory distress. Breath sounds: Normal breath sounds. Abdominal: General: Bowel sounds are normal. There is no distension. Palpations: Abdomen is soft. There is no mass. Tenderness: There is no abdominal tenderness. There is no guarding or rebound. Hernia: A hernia (massive ventral incisional hernia with loss of domain from subxiphoid to the level of the lower abdomen) is present. Musculoskeletal: General: Normal range of motion. Cervical back: Normal range of motion. Skin: General: Skin is warm and dry. Neurological: General: No focal deficit present. Mental Status: She is alert. Mental status is at baseline. Cranial Nerves: No cranial nerve deficit. Psychiatric: Behavior: Behavior normal. Assessment/Plan: Diagnoses and all orders for this visit: Recurrent incisional hernia with complication Unfortunately the patient would need a complex abdominal wall reconstruction that exceeds the abilities of our facility. She reports she was seen and turned down for surgery from [facility] buthas not been seen at . Will refer to documented in this [id number] History of Present illness Narrative* Doris Duran RT(R) - 05/19/2021 12:10 PM EDT Radiology Service Progress Note PATIENT NAME: Mel Wall DATE OF SERVICE: May 19, 2021 TIME: 12:11 PM PATIENT IDENTITY VERIFICATION COMPLETED USING TWO (2) IDENTIFIERS: Name and Date of confirmedby patient verbally. FALL SCREENING: Has the patient had 2 falls in the last year or 1 fall with injury or currently using an Ambulatory Assistive Device (Walker, Cane, Wheelchair, Crutches, etc.)? No PATIENT GENDER DATA: Female. status: : No status: NO. PATIENT RELEVANT IMPLANT DATA REVIEWED: Not Applicable RADIOLOGY DEPARTMENT: General X-ray: Exam(s) Completed: Chest X-Ray PERIPHERAL IV DATA: Not applicable SIGNED BY: RT Araceli(R) May 19, 2021 12:11 PM [facility] Discharge instructions* Instructions* Govind Graham MD - 03/17/2021 RESOURCES FOR PRIMARY CARE [facility] Referral Service: Visit [email or web address] or Call (use option 1) OR [phone] * Attachments The following attachments cannot be sent through Care Everywhere. * Hernia (Somali) documented in this [id number] Emergency department Note* Govind Graham MD - 03/17/2021 9:28 AM EDT Multiple ED PROVIDER NOTE [facility] EMERGENCY DEPARTMENT NAME: Mel Wall AGE: 35 y.o. : 1985 VISIT DATE: 03/17/2021 CSN: [id number] PCP: Physician No Chief Complaint Patient presents with Emesis Hernia Chief complaint abdominal pain History of present illness this is a 35-year-old female with a past medical history of ventral hernia status post repair approximately a year ago. Is here with nausea vomiting abdominal pain and swelling feels as if the mesh has moved and is here for assessment triaged to room 2 she states she vomited 4 times and has had increasing pain since last evening. Moderate. Denies hematemesis hematochezia or melena Is here with a blood pressure 131/86 pulse of 99 respirate is 18 pulse ox 98% temp 97 9 denies any chest pain chest pressure palpitations prior history of appendectomy cholecystectomy and hernia repair History reviewed. No pertinent past medical history. Past Surgical History: Procedure Laterality Date APPENDECTOMY SECTION CHOLECYSTECTOMY HERNIA REPAIR History reviewed. No pertinent family history. Social History Socioeconomic History Marital status: Spouse name: Not on file Number of children: Not on file Years of education: Not on file Highest education level: Not on file Occupational History Not on file Tobacco Use Smoking status: Never Smoker Smokeless tobacco: Never Used Substance and Sexual Activity Alcohol use: Not Currently Drug use: Yes Types: Marijuana Comment: occ Sexual activity: Not on file Other Topics Concern Not on file Social History Narrative Not on file Social Determinants of Health Financial Resource Strain: Difficulty of Paying Living Expenses: Food Insecurity: Worried About Running Out of Food in the Last Year: Ran Out of Food in the Last Year: Transportation Needs: Lack of Transportation (Medical): Lack of Transportation (Non-Medical): Physical Activity: Days of Exercise per Week: Minutes of Exercise per Session: Stress: Feeling of Stress : Social Connections: Frequency of Communication with Friends and Family: Frequency of Social Gatherings with Friends and Family: Attends Adventism Services: Active Member of Clubs or Organizations: Attends Club or Organization Meetings: Marital Status: No current outpatient medications on file prior to encounter. Allergies Allergen Reactions Toradol [Ketorolac] Zofran [Ondansetron Hcl] Review of Systems All other systems reviewed and are negative. Patient Vitals for the past 24 hrs: BP Temp Temp src Pulse Resp SpO2 Height Weight 03/17/21 1000 139/77 77 16 97 % 03/17/21 0840 131/86 97.9 F (36.6 C) Temporal 99 18 98 % 5' 5 131.1 kg (289 lb) Physical Exam Vitals and nursing note reviewed. Constitutional: General: She is in acute distress. Appearance: She is obese. HENT: Head: Normocephalic and atraumatic. Mouth/Throat: Mouth: Mucous membranes are dry. Eyes: Extraocular Movements: Extraocular movements intact. Pupils: Pupils are equal, round, and reactive to light. Cardiovascular: Rate and Rhythm: Normal rate and regular rhythm. Abdominal: General: Bowel sounds are normal. There is distension. Hernia: A hernia is present. Musculoskeletal: General: Normal range of motion. Cervical back: Normal range of motion and neck supple. Skin: Capillary Refill: Capillary refill takes less than 2 seconds. Neurological: General: No focal deficit present. Mental Status: She is alert. Laboratory & Radiographic Imaging (if done): Results for orders placed or performed during the hospital encounter of 03/17/21 POC CBC and Differential Result Value Ref Range WBC 9.80 4.50 - 11.00 K/mcL RBC 4.56 4.00 - 5.20 M/mcL Hemoglobin 13.9 12.0 - 16.0 g/dL Hematocrit 41.8 36.0 - 46.0 % MCV 91.7 80.0 - 100.0 fL MCH 30.5 26.0 - 34.0 pg MCHC 33.3 31.0 - 37.0 g/dL RDW - CV 12.6 11.6 - 14.8 % Platelets 257 150 - 400 K/mcL MPV 8.7 (L) 9.4 - 12.4 fL Neutrophils 72.8 % Lymphocytes 19.4 % Monocytes 5.1 % Eosinophils 1.8 % Basophils 0.3 % IG Percent 0.60 % Neutrophils Abs 7.13 (H) 1.70 - 7.00 K/mcL Lymphocytes Abs 1.90 0.90 - 4.00 K/mcL Monocytes Abs 0.50 0.30 - 0.90 K/mcL Eosinophils Abs 0.18 0.00 - 0.50 K/mcL Basophils Abs 0.03 0.00 - 0.30 K/mcL IG Absolute 0.06 0.00 - 0.30 K/mcL POC Basic Metabolic Panel Result Value Ref Range Glucose 127 (H) 65 - 99 mg/dL BUN 7 (L) 8 - 25 mg/dL Creatinine 0.31 (L) 0.40 - 1.10 mg/dL GFR 147 >=60 mL/min/1.73 m2 Sodium 139 135 - 145 mmol/L Potassium 4.3 3.5 - 5.1 mmol/L Chloride 105 98 - 108 mmol/L TCO2 23 21 - 32 mmol/L Ionized Calcium 4.7 4.5 - 5.3 mg/dL POC Urinalysis Dipstick, Auto Result Value Ref Range Spec Grav, UA >=1.030 (H) 1.005 - 1.025 pH, UA 6.5 5.0 - 7.0 Protein, UA Negative Negative mg/dL Glucose, UA Negative Negative mg/dL Ketones, UA Negative Negative mg/dL Bilirubin, UA Negative Negative Urobilinogen, UA 0.2 <2.0 mg/dL Blood, UA Small (A) Negative Nitrite, UA Negative Negative Leukocyte Esterase, UA Negative Negative POC , Urine Result Value Ref Range POC Preg Test, Ur Negative Negative POC Liver Panel Plus Result Value Ref Range Albumin 4.0 3.2 - 5.2 g/dL Alkaline Phosphatase 46 40 - 140 U/L ALT (SGPT) 26 0 - 40 U/L AST (SGOT) 26 0 - 45 U/L Bilirubin, Total 0.5 0.0 - 1.3 mg/dL Total Protein 6.7 6.0 - 8.0 g/dL Amylase 29 25 - 115 U/L GGT 37 (H) 7 - 33 U/L CT Abdomen Pelvis With IV Contrast Only Preliminary Result Large supraumbilical ventral hernia containing a large amount of bowel and mesentery without overt bowel obstruction or bowel inflammation. Hepatosplenomegaly. Hepatic steatosis. Indeterminate low-attenuating lesion of the left kidney, measures up to 1.3 cm. Recommend renal ultrasound follow-up. Scattered colonic diverticulosis without secondary signs of inflammation. Prior cholecystectomy, small bowel anastomosis, tubal ligation and appendectomy. ST/lab Workstation ID: [id number] Procedures MDM Number of Diagnoses or Management Options Ventral hernia without obstruction or gangrene: new, needed workup Diagnosis management comments: ED course and treatment IV fluids were given analgesics and pain medicines patient's symptoms are resolved. Here white count was normal urinalysis was clear LFTs were normal CT of the abdomen revealed no overt bowel obstruction nor gangrenous bowel or any inflammatoryissue test was negative patient was requesting a referral give her Dr. Trujillo. Suggest that if pain returns nausea vomiting that [facility] will be the nearest emergency room hospital that she should be assessed at has they have stat emergency surgical services there. Amount and/or Complexity of Data Reviewed Tests in the radiology section of CPT : reviewed and ordered Risk of Complications, Morbidity, and/or Mortality Presenting problems: high Diagnostic procedures: moderate Management options: low Patient Progress Patient progress: improved The patient has been informed that they may have pre-hypertension or hypertension based on a blood pressure reading in the Emergency Department. I recommend that the patient call the primary care provider listed on their discharge instructions or a physician of their choice as soon as possible to arrange follow-up in the next 4 weeks for further evaluation of possible pre-hypertension or hypertension. . Clinical Impression: 1. Ventral hernia without obstruction or gangrene ED Disposition ED Disposition Condition Comment Discharge Stable Mel Duke discharged to home/self care in stable condition. Follow-up Information 1. Sher Trujillo MD. Specialties: General Surgery, Breast Surgery, Trauma [address] [id number] Contact information for after-discharge care Follow-up information has not been specified. New Prescriptions promethazine (PHENERGAN) 25 MG tablet Take 1 (one) tablet (25 mg total) by mouth every 6 (six) hours as needed for nausea . Govind Graham MD 03/17/21 1051 * Claudia Fulton CNP - 03/17/2021 8:38 AM EDT Pt c/o n/v and abd pain to hernia site since yesterday. Pt relates vomiting x4. Last hernia repair March 2020 with MD Dominique at . Pt denies diarrhea or fever. documented in this [id number] History of Past illness Narrative* Problem Noted Date Resolved Date Abdominal pain 06/10/2019 06/11/2019 documented as of this encounter (statuses as of 01/08/2022) [address]-2019 History of Past illness Narrative* Problem Noted Date Resolved Date Abdominal pain 06/10/2019 06/11/2019 documented as of this encounter (statuses as of 03/30/2022) [facility]09-01-2019 History of Past illness Narrative* Problem Noted Date Resolved Date Abdominal pain 06/10/2019 06/11/2019 documented as of this encounter (statuses as of 04/21/2022) [address]2019 History of Past illness Narrative* Problem Noted Date Resolved Date Abdominal pain 06/10/2019 06/11/2019 documented as of this encounter (statuses as of 06/23/2022) [address]2019 History of Past illness Narrative* Problem Noted Date Resolved Date Abdominal pain 06/10/2019 06/11/2019 documented as of this encounter (statuses as of 08/03/2022) [address]2019 History of Past illness Narrative* Problem Noted Date Resolved Date Abdominal pain 06/10/2019 06/11/2019 documented as of this encounter (statuses as of 10/29/2022) [facility] History of Past illness Narrative* Problem Noted Date Resolved Date Abdominal pain 06/10/2019 06/11/2019 documented as of this encounter (statuses as of 10/29/2022) [address] History of Past illness Narrative* Problem Noted Date Resolved Date Abdominal pain 06/10/2019 06/11/2019 documented as of this encounter (statuses as of 11/24/2022) [address] History of Past illness Narrative* Problem Noted Date Resolved Date Abdominal pain 06/10/2019 06/11/2019 documented as of this encounter (statuses as of 01/29/2023) [address] History of Past illness Narrative* Problem Noted Date Resolved Date Abdominal pain 06/10/2019 06/11/2019 documented as of this encounter (statuses as of 02/12/2023) [facility] No data available for this section [facility] Evaluation note* Diagnosis Ventral hernia without obstruction or gangrene- Primary Unspecified ventral hernia without mention of obstruction or gangrene [facility] Recurrent incisional hernia with complication- Primary documented in this encounter [facility] note* Diagnosis Panic disorder with agoraphobia- Primary Agoraphobia with panic disorder Mixed obsessional thoughts and acts Chronic post-traumatic stress disorder (PTSD) Major depressive disorder, recurrent episode, moderate (HCC) Major depressive disorder, recurrent episode, moderate Marijuana use Cannabis abuse, unspecified documented in this encounter [facility] noteNo assessment information availableWParkview Health Work Phone: Evaluation note* Diagnosis Dental infection- Primary Acute apical periodontitis of pulpal origin documented in this encounter [facility] note* Diagnosis Toothache- Primary Unspecified disorder of the teeth and supporting structures documented in this encounter [facility] note* Diagnosis Panic disorder with agoraphobia- Primary Agoraphobia with panic disorder Mixed obsessional thoughts and acts Chronic post-traumatic stress disorder (PTSD) Recurrent major depressive disorder, in partial remission (HCC) documented in this encounter [facility] note* Diagnosis Recurrent ventral incisional hernia- Primary Incisional hernia without mention of obstruction or gangrene documented in this encounter [facility] note* Diagnosis NO SHOW- Primary documented in this encounter [facility] note* Diagnosis Ventral hernia without obstruction or gangrene- Primary Ventral hernia, unspecified, without mention of obstruction or gangrene Lower abdominal pain Abdominal pain, other specified site Incisional hernia Incisional hernia without mention of obstruction or gangrene documented in this encounter [facility] note* Diagnosis NO SHOW- Primary documented in this encounter [facility] note* Diagnosis Mixed obsessional thoughts and acts- Primary Attention deficit hyperactivity disorder (ADHD), combined type Panic disorder with agoraphobia Agoraphobia with panic disorder Chronic post-traumatic stress disorder (PTSD) Recurrent major depressive disorder, in partial remission (HCC) documented in this encounter [facility] note* Diagnosis Ventral hernia with obstruction and without gangrene- Primary Ventral hernia with obstruction and without gangrene Chronic abdominal pain Abdominal pain, unspecified site documented in this encounter [facility] note* Diagnosis Ventral hernia with obstruction- Primary Unspecified ventral hernia with obstruction Ventral hernia with obstruction Unspecified ventral hernia with obstruction Ventral hernia with obstruction and without gangrene documented in this encounter [facility] note* Diagnosis Vomiting and diarrhea- Primary Generalized abdominal pain Abdominal pain, generalized Ventral hernia without obstruction or gangrene Unspecified ventral hernia without mention of obstruction or gangrene documented in this encounter [facility] note* Diagnosis Ventral hernia with obstruction and without gangrene- Primary Morbid obesity with BMI of 40.0-44.9, adult (HCC) Right lower quadrant abdominal pain Change in bowel function documented in this encounter [facility] note* Diagnosis Morbid obesity with BMI of 40.0-44.9, adult (HCC) Right lower quadrant abdominal pain Change in bowel function Ventral hernia with obstruction and without gangrene documented in this encounter [facility] note* Diagnosis Morbid obesity with BMI of 40.0-44.9, adult (HCC) Right lower quadrant abdominal pain Change in bowel function Ventral hernia with obstruction and without gangrene documented in this encounter [facility] note* Diagnosis Morbid obesity with BMI of 40.0-44.9, adult (HCC) Right lower quadrant abdominal pain Change in bowel function Ventral hernia with obstruction and without gangrene Generalized abdominal pain Abdominal pain, generalized Other specified symptoms and signs involving the digestive system and abdomen documented in this encounter [facility] note* Diagnosis Generalized abdominal pain Abdominal pain, generalized Other specified symptoms and signs involving the digestive system and abdomen documented in this encounter [facility] note* Diagnosis Morbid obesity with BMI of 40.0-44.9, adult (HCC) Right lower quadrant abdominal pain Change in bowel function Ventral hernia with obstruction and without gangrene documented in this encounter [facility] note* Diagnosis Morbid obesity with BMI of 40.0-44.9, adult (HCC) Right lower quadrant abdominal pain Change in bowel function Ventral hernia with obstruction and without gangrene documented in this encounter [facility] note* Diagnosis Ventral hernia with obstruction and without gangrene- Primary BMI 40.0-44.9, adult (HCC) Class 3 severe obesity with serious comorbidity and body mass index (BMI) of 40.0 to 44.9 in adult, unspecified obesity type (HCC) documented in this encounter [facility] note* Diagnosis Generalized abdominal pain- Primary Abdominal pain, generalized documented in this encounter [facility] note* Diagnosis Morbid obesity with BMI of 40.0-44.9, adult (HCC) Right lower quadrant abdominal pain Change in bowel function Ventral hernia with obstruction and without gangrene Morbid obesity with BMI of 40.0-44.9, adult (HCC) Right lower quadrant abdominal pain Change in bowel function Ventral hernia with obstruction and without gangrene [facility] Diagnosis Morbid obesity with BMI of 40.0-44.9, adult (HCC) Right lower quadrant abdominal pain Change in bowel function Ventral hernia with obstruction and without gangrene Morbid obesity with BMI of 40.0-44.9, adult (HCC) Right lower quadrant abdominal pain Change in bowel function Ventral hernia with obstruction and without gangrene [facility]* Diagnosis BMI 40.0-44.9, adult (HCC) Class 3 severe obesity with serious comorbidity and body mass index (BMI) of 40.0 to 44.9 in adult, unspecified obesity type (HCC) documented in [facility]* Diagnosis Screening for diabetes mellitus (DM)- Primary Screening for diabetes mellitus BMI 40.0-44.9, adult (HCC) Class 3 severe obesity with serious comorbidity and body mass index (BMI) of 40.0 to 44.9 in adult, unspecified obesity type (HCC) Ventral hernia, recurrent Incisional hernia without mention of obstruction or gangrene documented [facility]* Diagnosis Ventral hernia with obstruction and without gangrene- Primary Morbid obesity with BMI of 40.0-44.9, adult (HCC) Right lower quadrant abdominal pain Change in bowel function documented in this encounter [facility]* Diagnosis BMI 40.0-44.9, adult (HCC)- Primary Ventral hernia, recurrent Incisional hernia without mention of obstruction or gangrene Class 3 severe obesity with serious comorbidity and body mass index (BMI) of 40.0 to 44.9 in adult, unspecified obesity type (HCC) documented in [facility]* Diagnosis Morbid obesity with BMI of 40.0-44.9, adult (HCC) Right lower quadrant abdominal pain Change in bowel function Ventral hernia with obstruction and without gangrene Morbid obesity with BMI of 40.0-44.9, adult (HCC) Right lower quadrant abdominal pain Change in bowel function Ventral hernia with obstruction and without gangrene [facility] Ventral hernia, recurrent- Primary Incisional hernia without mention of obstruction or gangrene BMI 40.0-44.9, adult (HCC) Class 3 severe obesity with serious comorbidity and body mass index (BMI) of 40.0 to 44.9 in adult, unspecified obesity type (HCC) documented in this encounter [facility] note* Diagnosis Generalized abdominal pain- Primary Abdominal pain, generalized Generalized abdominal pain Abdominal pain, generalized Partial small bowel obstruction (HCC) Unspecified intestinal obstruction Ventral hernia with obstruction and without gangrene documented in this encounter [facility] note* Diagnosis Nausea and vomiting, unspecified vomiting type- Primary Ventral hernia without obstruction or gangrene Unspecified ventral hernia without mention of obstruction or gangrene documented in this encounter [facility] note* Diagnosis Ventral hernia without obstruction or gangrene- Primary Unspecified ventral hernia without mention of obstruction or gangrene Ventral hernia without obstruction or gangrene Unspecified ventral hernia without mention of obstruction or gangrene documented in this encounter [facility] note* Diagnosis Abdominal wall hernia- Primary Ventral hernia, unspecified, without mention of obstruction or gangrene Generalized abdominal pain Abdominal pain, generalized Situational anxiety Other anxiety states documented in this encounter [facility] note* Diagnosis Abdominal wall hernia Ventral hernia, unspecified, without mention of obstruction or gangrene Generalized abdominal pain Abdominal pain, generalized documented in this encounter [facility] note* Diagnosis Obesity, Class III, BMI 40-49.9 (morbid obesity) ([facility])- Primary Morbid obesity documented in this encounter [facility] note* Diagnosis Recurrent incisional hernia- Primary Abdominal pain, generalized documented in this encounter [facility] note* Diagnosis Recurrent incisional hernia- Primary Abdominal pain, generalized Incisional hernia without obstruction or gangrene documented in this encounter [facility] note* Diagnosis Abdominal pain, generalized- Primary Ventral hernia without obstruction or gangrene Unspecified ventral hernia without mention of obstruction or gangrene Incisional hernia without obstruction or gangrene documented in this encounter [facility] note* Diagnosis Nausea Nausea alone documented in this encounter [facility] note* Diagnosis Abdominal wall hernia Ventral hernia, unspecified, without mention of obstruction or gangrene Generalized abdominal pain Abdominal pain, generalized documented in this encounter [facility] note* Diagnosis Obesity, Class III, BMI 40-49.9 (morbid obesity) (HCC) Morbid obesity documented in this encounter [facility] note* Diagnosis Other depression- Primary Anxiety Anxiety state, unspecified documented in this encounter [facility] note* Diagnosis Abdominal wall hernia Ventral hernia, unspecified, without mention of obstruction or gangrene Generalized abdominal pain Abdominal pain, generalized documented in this encounter [facility] note* Diagnosis Ventral hernia without obstruction or gangrene- Primary Unspecified ventral hernia without mention of obstruction or gangrene Ventral hernia without obstruction or gangrene Unspecified ventral hernia without mention of obstruction or gangrene Bilateral renal stones documented in this encounter [facility] note* Diagnosis S/P hernia repair- Primary Other postprocedural status documented in this encounter [facility] note* Diagnosis Follow-up examination- Primary Unspecified follow-up examination Abdominal wall hernia Ventral hernia, unspecified, without mention of obstruction or gangrene Generalized abdominal pain Abdominal pain, generalized documented in this encounter [facility] note* Diagnosis Encounter for postoperative care- Primary Postoperative abdominal pain Abdominal fluid collection Other ascites History of incisional hernia repair documented in this encounter [facility] note* Diagnosis Abdominal wall seroma, initial encounter- Primary S/P hernia repair Other postprocedural status Nausea and vomiting, unspecified vomiting type documented in this encounter [facility] note* Diagnosis Abdominal wall seroma, initial encounter- Primary History of incisional hernia repair documented in this encounter [facility] note* Diagnosis Abdominal wall seroma, initial encounter- Primary documented in this encounter [facility] note* Diagnosis Abdominal wall seroma, initial encounter documented in this encounter [facility] note* Diagnosis Abdominal wall seroma, initial encounter documented in this encounter [facility] note* Diagnosis Abdominal wall hernia Ventral hernia, unspecified, without mention of obstruction or gangrene documented in this encounter [facility] note* Diagnosis Nausea Nausea alone documented in this encounter [facility] note* Diagnosis Encounter for postoperative care- Primary Abdominal wall seroma, initial encounter History of incisional hernia repair Postoperative abdominal pain documented in this encounter [facility] note* Diagnosis Abdominal wall seroma, initial encounter- Primary documented in this encounter [facility] note* Diagnosis Abdominal wall seroma, initial encounter History of incisional hernia repair Postoperative abdominal pain documented in this encounter [facility] note* Diagnosis Abdominal wall seroma, initial encounter documented in this encounter [facility] note* Diagnosis Abdominal wall seroma, initial encounter documented in this encounter [facility] note* Diagnosis Abdominal wall hernia Ventral hernia, unspecified, without mention of obstruction or gangrene documented in this encounter [facility] note* Diagnosis Abdominal wall seroma, initial encounter- Primary Encounter for postoperative care History of incisional hernia repair documented in this encounter [facility] note* Diagnosis Abdominal wall seroma, initial encounter- Primary Encounter for postoperative care History of incisional hernia repair documented in this encounter [facility] note* Diagnosis Abdominal wall seroma, initial encounter- Primary Encounter for postoperative care History of incisional hernia repair Abdominal wall seroma, initial encounter History of incisional hernia repair documented in this encounter [facility] note* Diagnosis Abdominal wall seroma, initial encounter History of incisional hernia repair documented in this encounter [facility] note* Diagnosis Abdominal wall seroma, subsequent encounter- Primary documented in this encounter [facility] note* Diagnosis Abdominal wall seroma, initial encounter Encounter for postoperative care History of incisional hernia repair documented in this encounter [facility] note* Diagnosis Abdominal wall seroma, subsequent encounter documented in this encounter [facility] note* Diagnosis Generalized abdominal pain- Primary Abdominal pain, generalized Abdominal wall seroma, initial encounter documented in this encounter [facility] note* Diagnosis Abdominal pain, generalized- Primary Renal lesion documented in this encounter [facility] note* Diagnosis Encounter for postoperative care- Primary Abdominal wall seroma, initial encounter History of incisional hernia repair Postoperative abdominal pain Abdominal wall seroma, initial encounter History of incisional hernia repair Postoperative abdominal pain documented in this encounter [facility] note* Diagnosis Intractable abdominal pain- Primary Intractable abdominal pain documented in this encounter [facility] note* Diagnosis Abdominal adhesions- Primary Peritoneal adhesions (postoperative) (postinfection) Nausea Nausea alone Generalized abdominal pain Abdominal pain, generalized documented in this encounter [facility] note* Diagnosis Chronic pain syndrome- Primary Uncomplicated opioid dependence (HCC) documented in this encounter [facility] note* Diagnosis Intractable abdominal pain- Primary Intractable abdominal pain Ventral hernia without obstruction or gangrene Unspecified ventral hernia without mention of obstruction or gangrene Abnormal CT of the abdomen Nonspecific (abnormal) findings on radiological and other examination of abdominal area, including retroperitoneum documented in this encounter [facility] note* Diagnosis Chronic pain syndrome- Primary Uncomplicated opioid dependence (HCC) documented in this encounter [facility] note* Diagnosis Periumbilical abdominal pain- Primary Abdominal pain, periumbilic Periumbilical abdominal pain Abdominal pain, periumbilic documented in this encounter [facility] note* Diagnosis Chronic pain syndrome- Primary Generalized abdominal pain Abdominal pain, generalized Chronic, continuous use of opioids Opioid type dependence, continuous Myofascial pain syndrome Mylagia and myositis, unspecified documented in this encounter [facility] note* Diagnosis Generalized abdominal pain- Primary Abdominal pain, generalized Abnormal CT of the abdomen Nonspecific (abnormal) findings on radiological and other examination of abdominal area, including retroperitoneum Recurrent hernia Hernia of unspecified site of abdominal cavity without mention of obstruction or gangrene Nausea and vomiting, unspecified vomiting type Class 2 obesity due to excess calories without serious comorbidity with body mass index (BMI) of 38.0 to 38.9 in adult documented in this encounter [facility] note* Diagnosis Chronic pain syndrome Generalized abdominal pain Abdominal pain, generalized documented in this encounter [facility] note* Diagnosis Moderate episode of recurrent major depressive disorder (HCC)- Primary Obesity, Class III, BMI 40-49.9 (morbid obesity) (HCC) Morbid obesity documented in this encounter [facility] note* Diagnosis Generalized abdominal pain- Primary Abdominal pain, generalized Generalized abdominal pain Abdominal pain, generalized Nausea and vomiting, unspecified vomiting type documented in this encounter [facility] note* Diagnosis Pain of upper abdomen- Primary Syncope and collapse Abdominal pain Abdominal pain, unspecified site documented in this encounter [facility] note* Diagnosis Abdominal pain Abdominal pain, unspecified site [facility] Additional Instructions Follow-up with your surgeon at [facility] Work Phone: Hospital Discharge instructions* Attachments The following attachments cannot be sent through Care Everywhere. * Nausea and Vomiting Discharge Instructions, Adult ([place]) * Severe Abdominal Pain Discharge Instructions, Adult ([place]) [facility] Attachments The following attachments cannot be sent through Care Everywhere. * Colonoscopy Discharge Instructions ([place]i) * Upper GI Endoscopy Discharge Instructions ([place]) documented in this [facility] Discharge instructions* Attachments The following attachments cannot be sent through Care Everywhere. * Abdominal Wall Hernias ([place]i) * Severe Abdominal Pain Discharge Instructions, Adult ([place]) documented in this [facility] Discharge instructions* Attachments The following attachments cannot be sent through Care Everywhere. * SCLEROSING DISCHARGE INSTRUCTIONS documented in this [facility] Discharge instructions No data available for this section [facility] Discharge instructions* Attachments The following attachments cannot be sent through Care Everywhere. * Upper GI Endoscopy Discharge Instructions ([place]i) documented in this [facility] note No data available for this section [facility] Reason for referral (narrative)* Consultation (Routine) - Pending Review Specialty Diagnoses / Procedures Referred By Contac t Referred To Contact General Surgery Diagnoses Ventral hernia with obstruction and without gangrene Procedures [facility] OFFICE/OUTPATIENT [facility] 60 MINUTES Marilyn Sorto PA [address] [place] [address] [facility] [address] [facility] [address] [place] [address] Referral ID Status Reason Start Date Expiration Date Visits Requested Visits Authorized [id number] Pending Review Specialty Services Required 10/20/2023 10/19/2024 1 1 L [employer] for referral (narrative)* Consultation (Elective) - Pending Review Specialty Diagnoses / Procedures Referred By Contac t Referred To Contact Cardiology Diagnoses Morbid obesity with BMI of 40.0-44.9, adult (HCC) Right lower quadrant abdominal pain Change in bowel function Ventral hernia with obstruction and without gangrene Procedures LA OFFICE/OUTPATIENT [facility] 60 MINUTES Gayle Anderson, CHEMICAL OPERATIONS SPECIALIST - WIRE INSERTER [address] [facility] [place] [address] [facility] [address] [place] [address] Referral ID Status Reason Start Date Expiration Date Visits Requested Visits Authorized [id number] Pending Review Specialty Services Required 11/21/2023 11/20/2024 1 1 [employer] for visit Narrative* Imaging (Routine) - Closed Specialty Diagnoses / Procedures Referred By Contac t Referred To Contact Radiology Diagnoses Abdominal wall seroma, initial encounter Procedures CT guided soft tissue fluid drain Celina Moura MD [address] [place] [address] Phone: tel: fax: Referral ID Status Reason Start Date Expiration Date Visits Re quested Visits Authorized [id number] Closed 09/07/2024 09/07/2025 1 1 [employer] for visit Narrative* Imaging (Routine) - Closed Specialty Diagnoses / Procedures Referred By Contac t Referred To Contact Radiology Diagnoses Abdominal wall seroma, initial encounter Procedures CT guided soft tissue fluid drain Tara Marroquin PA-C [address] [place] [address] Phone: tel: fax: Referral ID Status Reason Start Date Expiration Date Visits Re quested Visits Authorized [id number] Closed 10/05/2024 10/05/2025 1 1 [employer] for visit Narrative* Auth/Cert (Routine) Specialty Diagnoses / Procedures Referred By Brooke t Referred To Contact Diagnoses Abdominal pain Procedures LA EGD TRANSORAL BIOPSY SINGLE/MULTIPLE ESOPHAGOGASTRODUODENOSCOPY, DIAGNOSTIC [address] [place] [address] Phone: tel: fax: [facility] [address] [facility] [address] [place] [phone] Phone: tel: Referral ID Status Reason Start Date Expiration Date Visits Re quested Visits Authorized [id number] 1 1 BULX Summary Purpose Family History No Family History Records Found Father Name Dates Details Family history of cerebrovas cular accident (CVA)(V17.1, Z82.3) Status:Active Father Name Dates Details Family history of cerebrovas cular accident (CVA)(V17.1, Z82.3) Status:Active Relationship Condition Age at Onset Recorded Date/T yoselin Unknown Family History?Cance r, Diabetes, Heart Disease, Hypertension Unknown June 19, 2019 9:46pm Family History?Diabe opal, Heart Disease, Hypertension, Stroke Unknown June 19, 2019 9:4 6pm Family History?Diabe opal, Hypertension, Stroke, - Unknown October 10, 2018 5:21am Relationship Condition Age at Onset Recorded Date/T yoselin Unknown Family History?Cance r, Diabetes, Heart Disease, Hypertension Unknown June 19, 2019 8:46pm Family History?Diabe opal, Heart Disease, Hypertension, Stroke Unknown June 19, 2019 8:4 6pm Family History?Diabe opal, Hypertension, Stroke, - Unknown October 10, 2018 4:21am Advance Directives No Advanced Directives Records Found Date Activated Date Inactivated Comments 08/08/2024 2:17 AM 08/13/2024 7:24 PM Date Activated Date Inactivated Comments 04/24/2024 6:21 AM 04/26/2024 4:07 PM Date Activated Date Inactivated Comments 04/10/2024 4:57 PM 04/13/2024 2:34 PM Date Activated Date Inactivated Comments 11/29/2023 7:04 AM 11/29/2023 10:56 AM Date Activated Date Inactivated Comments 10/19/2023 12:50 PM 10/20/2023 7:45 PM Date Activated Date Inactivated Comments 04/10/2024 4:57 PM 04/13/2024 2:34 PM Date Activated Date Inactivated Comments 11/29/2023 7:04 AM 11/29/2023 10:56 AM Date Activated Date Inactivated Comments 10/19/2023 12:50 PM 10/20/2023 7:45 PM Date Activated Date Inactivated Comments 09/13/2023 8:01 PM 09/15/2023 2:30 PM Documents on File Type Date Recorded Patient Increment Manager Expl anation Advance Directives and Livin g Will 03/17/2021 8:50 AM Documents on File Type Date Recorded Patient Increment Manager Expl anation Advance Directives and Livin g Will 04/28/2021 1:47 PM Documents on File Type Date Recorded Patient Increment Manager Expl anation Advance Directive(s) 08/21/2020 11:40 AM Advance Directive(s) 12/28/2019 1:30 PM Advance Directive(s) 12/20/2019 6:58 PM Advance Directive(s) 12/19/2019 1:31 PM Advance Directive(s) 07/10/2019 1:19 AM Advance Directive(s) 06/10/2019 10:39 AM Advance Directive(s) 06/09/2019 6:53 PM Advance Directive Response Recorded Date/ Time Advance Directives No September 12, 2014 4:06am Living Will No March 20, 2022 11:41pm Power of Receiving Teller No March 20 11:41pm Advance Directive Response Recorded Date/ Time Advance Directives No September 12, 2014 4:06am Living Will No July 30 2:54pm Power of Receiving Teller No July 30, 2022 2:54pm Advance Directive Response Recorded Date/ Time Advance Directives No September 12, 2014 3:06am Living Will No September 07 8:48pm Power of Receiving Teller No September 07, 2022 8:48pm Latest Code Status on File Code Status Date Activated Date Inactivated Comments Full Code 03/09/2023 11:26 AM 03/10/2023 1:02 AM Full Code Order Discussed With: Patient Latest Code Status on File Code Status Date Activated Date Inactivated Comments Full Code 06/28/2023 1:36 PM Latest Code Status on File Code Status Date Activated Date Inactivated Comments Full Code 03/09/2023 11:26 AM 03/10/2023 1:02 AM Question Answer Comments Full Code Order Discussed With: Patient Latest Code Status on File Code Status Date Activated Date Inactivated Comments Full Code 09/13/2023 8:01 PM Latest Code Status on File Code Status Date Activated Date Inactivated Comments Full Code 09/13/2023 8:01 PM 09/15/2023 2:30 PM Latest Code Status on File Code Status Date Activated Date Inactivated Comments Full Code 10/19/2023 12:50 PM Code Status History Code Status Date Activated Date Inactivated Comments Full Code 09/13/2023 8:01 PM 09/15/2023 2:30 PM Latest Code Status on File Code Status Date Activated Date Inactivated Comments Full Code 10/19/2023 12:50 PM 10/20/2023 7:45 PM Latest Code Status on File Code Status Date Activated Date Inactivated Comments Full Code 10/19/2023 12:50 PM 10/20/2023 7:45 PM Code Status History Code Status Date Activated Date Inactivated Comments Full Code 09/13/2023 8:01 PM 09/15/2023 2:30 PM Latest Code Status on File Code Status Date Activated Date Inactivated Comments Full Code 11/29/2023 7:04 AM 11/29/2023 10:56 AM Code Status History Code Status Date Activated Date Inactivated Comments Full Code 10/19/2023 12:50 PM 10/20/2023 7:45 PM Full Code 09/13/2023 8:01 PM 09/15/2023 2:30 PM Latest Code Status on File Code Status Date Activated Date Inactivated Comments Full Code 11/29/2023 7:04 AM 11/29/2023 10:56 AM Code Status History Code Status Date Activated Date Inactivated Comments Full Code 10/19/2023 12:50 PM 10/20/2023 7:45 PM Full Code 09/13/2023 8:01 PM 09/15/2023 2:30 PM Date Activated Date Inactivated Comments 03/09/2023 11:26 AM 03/10/2023 1:02 AM Question Answer Comments Full Code Order Discussed With: Patient Date Activated Date Inactivated Comments 11/29/2023 7:04 AM 11/29/2023 10:56 AM Date Activated Date Inactivated Comments 10/19/2023 12:50 PM 10/20/2023 7:45 PM Date Activated Date Inactivated Comments 09/13/2023 8:01 PM 09/15/2023 2:30 PM Date Activated Date Inactivated Comments 04/10/2024 4:57 PM Date Activated Date Inactivated Comments 04/24/2024 6:21 AM Date Activated Date Inactivated Comments 04/10/2024 4:57 PM 04/13/2024 2:34 PM Date Activated Date Inactivated Comments 11/29/2023 7:04 AM 11/29/2023 10:56 AM Date Activated Date Inactivated Comments 10/19/2023 12:50 PM 10/20/2023 7:45 PM Date Activated Date Inactivated Comments 09/13/2023 8:01 PM 09/15/2023 2:30 PM Date Activated Date Inactivated Comments 04/24/2024 6:21 AM 04/26/2024 4:07 PM Date Activated Date Inactivated Comments 04/10/2024 4:57 PM 04/13/2024 2:34 PM Date Activated Date Inactivated Comments 11/29/2023 7:04 AM 11/29/2023 10:56 AM Date Activated Date Inactivated Comments 10/19/2023 12:50 PM 10/20/2023 7:45 PM Date Activated Date Inactivated Comments 09/13/2023 8:01 PM 09/15/2023 2:30 PM Date Activated Date Inactivated Comments 03/09/2023 11:26 AM 03/10/2023 1:02 AM Question Answer Comments Full Code Order Discussed With: Patient Date Activated Date Inactivated Comments 08/08/2024 2:17 AM Date Activated Date Inactivated Comments 08/08/2024 2:17 AM 08/13/2024 7:24 PM Date Activated Date Inactivated Comments 04/24/2024 6:21 AM 04/26/2024 4:07 PM Date Activated Date Inactivated Comments 04/10/2024 4:57 PM 04/13/2024 2:34 PM Date Activated Date Inactivated Comments 11/29/2023 7:04 AM 11/29/2023 10:56 AM Date Activated Date Inactivated Comments 10/19/2023 12:50 PM 10/20/2023 7:45 PM Date Activated Date Inactivated Comments 02/21/2025 6:12 AM 02/22/2025 2:44 PM Date Activated Date Inactivated Comments 08/08/2024 2:17 AM 08/13/2024 7:24 PM Date Activated Date Inactivated Comments 04/24/2024 6:21 AM 04/26/2024 4:07 PM Date Activated Date Inactivated Comments 04/10/2024 4:57 PM 04/13/2024 2:34 PM Date Activated Date Inactivated Comments 11/29/2023 7:04 AM 11/29/2023 10:56 AM Date Activated Date Inactivated Comments 05/10/2025 12:00 AM Date Activated Date Inactivated Comments 02/21/2025 6:12 AM 02/22/2025 2:44 PM Date Activated Date Inactivated Comments 08/08/2024 2:17 AM 08/13/2024 7:24 PM Date Activated Date Inactivated Comments 04/24/2024 6:21 AM 04/26/2024 4:07 PM Date Activated Date Inactivated Comments 04/10/2024 4:57 PM 04/13/2024 2:34 PM Date Activated Date Inactivated Comments 05/10/2025 12:00 AM 05/11/2025 3:17 PM Date Activated Date Inactivated Comments 02/21/2025 6:12 AM 02/22/2025 2:44 PM Date Activated Date Inactivated Comments 08/08/2024 2:17 AM 08/13/2024 7:24 PM Date Activated Date Inactivated Comments 04/24/2024 6:21 AM 04/26/2024 4:07 PM Date Activated Date Inactivated Comments 04/10/2024 4:57 PM 04/13/2024 2:34 PM Date Activated Date Inactivated Comments 05/10/2025 12:00 AM 05/11/2025 3:17 PM Date Activated Date Inactivated Comments 05/20/2025 11:50 PM 05/24/2025 1:49 PM Date Activated Date Inactivated Comments 05/10/2025 12:00 AM 05/11/2025 3:17 PM Date Activated Date Inactivated Comments 02/21/2025 6:12 AM 02/22/2025 2:44 PM Date Activated Date Inactivated Comments 08/08/2024 2:17 AM 08/13/2024 7:24 PM Date Activated Date Inactivated Comments 04/24/2024 6:21 AM 04/26/2024 4:07 PM Date Activated Date Inactivated Comments 07/09/2025 3:13 AM 07/10/2025 6:12 PM Date Activated Date Inactivated Comments 05/20/2025 11:50 PM 05/24/2025 1:49 PM Date Activated Date Inactivated Comments 05/10/2025 12:00 AM 05/11/2025 3:17 PM Date Activated Date Inactivated Comments 02/21/2025 6:12 AM 02/22/2025 2:44 PM Date Activated Date Inactivated Comments 08/08/2024 2:17 AM 08/13/2024 7:24 PM Date Activated Date Inactivated Comments 07/09/2025 3:13 AM 07/10/2025 6:12 PM Date Activated Date Inactivated Comments 05/20/2025 11:50 PM 05/24/2025 1:49 PM Date Activated Date Inactivated Comments 05/10/2025 12:00 AM 05/11/2025 3:17 PM Date Activated Date Inactivated Comments 02/21/2025 6:12 AM 02/22/2025 2:44 PM Date Activated Date Inactivated Comments 08/08/2024 2:17 AM 08/13/2024 7:24 PM Date Activated Date Inactivated Comments 08/06/2025 8:10 AM 08/06/2025 11:53 AM Date Activated Date Inactivated Comments 07/09/2025 3:13 AM 07/10/2025 6:12 PM Date Activated Date Inactivated Comments 05/20/2025 11:50 PM 05/24/2025 1:49 PM Date Activated Date Inactivated Comments 05/10/2025 12:00 AM 05/11/2025 3:17 PM Date Activated Date Inactivated Comments 02/21/2025 6:12 AM 02/22/2025 2:44 PM Hospital Course Note Send Summary: Discharge Summ cari Providers: Provider RoleProvider Name AttendingSiAye chawla PrimaryRequired, No Pcp Note Recipients: No PCP Discharge: Summary: Admission Date: .19-Feb-2020 21:31:00 Discharge Date: 21-Feb-2020 Attending Physician at Discharge: Aye Rae Admission Reason: Incisional hernia(1) Final Discharge Diagnoses: Incarcerated recurrent incisional hernia Procedures: None Condition at Discharge: Satisfactory Disposition at Discharge: .Home Hospital Course: Ms. Wall was seen in the ED the night of 02/19/20 for worsening abdominal pain at the site of her chronically incarcerated recurrent incisional hernia. This was partially reduced in the ED. She also had a lactic acidosis and hypokalemia. She was observed in the ED overnight. Her lactate had not yet cleared and she was therefore admitted the morning of 02/20/20. She was rehydrated. Her hypokalemia resolved. Her lactate cleared. She continued to require narcotic pain medication, but her pain significantly impro (more content not included)... Chief Complaint and Reason for Visit Chief Complaint LLQ pain Chief Complaint ABD PAIN Chief Complaint ABD PAIN Hernia Pain Reason for Referral Specialty Diagnoses / Procedures Referred By Brooke pickering Referred To Contact Procedures PLATELET MONITORING PER PROTOCOL Susan Medina MD [address] [place] [address] Referral ID Status Reason Start Date Expiration Date V isits Requested Visits Authorized [id number] New Request 06/28/2023 07/22/2024 1 1 Specialty Diagnoses / Procedures Referred By Contac t Referred To Contact Procedures DVT/VTE RISK ASSESSMENT Susan Medina MD [address] [facility] [address] [place] [address] Referral ID Status Reason Start Date Expiration Date V isits Requested Visits Authorized [id number] New Request 06/28/2023 07/22/2024 1 1 Specialty Diagnoses / Procedures Referred By Contac t Referred To Contact Gastroenterology Diagnoses Abdominal wall hernia Procedures CONSULT TO GASTROENTEROLOGY OFFICE/OUTPATIENT NEW HIGH MDM 60 MINUTES Nanci Diaz, CHEMICAL OPERATIONS SPECIALIST.WIRE INSERTER [address] [place] [address] Jose Brice MD 1 [facility] [address] [place] [address] Referral ID Status Reason Start Date Expiration Date Visits Requested Visits Authorized [id number] Authorized PCP Requested Referral 05/05/2024 05/04/2025 1 1 Additional Source Comments INFORMATION SOURCE (unrecogn ized section and content) DATE CREATED AUTHOR 06/10/2018 [facility] cosmo Agosto DATE CREATED AUTHOR AUTHOR'S ORGANIZ ATION 01/18/2019 [facility] DATE CREATED AUTHOR AUTHOR'S ORGANIZ ATION 08/21/2020 [facility] DATE CREATED AUTHOR AUTHOR'S ORGANIZ ATION 09/07/2020 [facility] DATE CREATED AUTHOR AUTHOR'S ORGANIZ ATION 09/09/2020 [facility] DATE CREATED AUTHOR AUTHOR'S ORGANIZ ATION 02/10/2021 [facility] ([place]) DATE CREATED AUTHOR AUTHOR'S ORGANIZ ATION 08/14/2021 [facility] DATE CREATED AUTHOR AUTHOR'S ORGANIZ ATION 08/21/2021 [facility] DATE CREATED AUTHOR AUTHOR'S ORGANIZ ATION 09/20/2022 [facility] DATE CREATED AUTHOR AUTHOR'S ORGANIZ ATION 03/20/2023 [facility] DATE CREATED AUTHOR AUTHOR'S ORGANIZ ATION 06/25/2023 [facility] DATE CREATED AUTHOR AUTHOR'S ORGANIZ ATION 07/04/2023 [facility] DATE CREATED AUTHOR AUTHOR'S ORGANIZ ATION 07/18/2023 [facility] DATE CREATED AUTHOR AUTHOR'S ORGANIZ ATION 10/21/2023 [facility] DATE CREATED AUTHOR AUTHOR'S ORGANIZ ATION 05/25/2025 [facility] DATE CREATED AUTHOR AUTHOR'S ORGANIZ ATION 06/27/2025 [facility] DATE CREATED AUTHOR AUTHOR'S ORGANIZ ATION 06/30/2025 [facility] DATE CREATED AUTHOR AUTHOR'S ORGANIZ ATION 08/09/2025 [facility] Reason for Visit (unrecogniz ed section and content) Reason Comments Hernia Specialty Diagnoses / Procedures Referred By Brooke pickering Referred To Contact Diagnoses Ventral hernia with obstruction Procedures K43.6 Titi Dang MD [address] [place] [address] [facility] Emergency Dept [address] [place] [phone] Referral ID Status Reason Start Date Expiration Date Visits Re quested Visits Authorized [id number] 1 1 Reason Comments Emesis Hernia Reason Comments Consult abdominal hernia Reason Comments Follow Up Specialty Diagnoses / Procedures Referred By Brooke pickering Referred To Contact Diagnoses Mild episode of recurrent major depressive disorder (HCC) Anxiety Procedures CONSULT TO PSYCHIATRY NEW PATIENT VISIT LEVEL 5 Leeanna Aranda, AKIRA.WIRE INSERTER [address] [place] [address] Referral ID Status Reason Start Date Expiration Date Visits Requested Visits Authorized [id number] Pending Review PCP Requested Referral 05/27/2021 05/27/2022 1 1 Reason Comments Telemedicine Reason Onset Date Comments Refill Request 06/23/2022 Reason Onset Date Comments Refill Request 10/29/2022 Reason Comments Dental Problem Broken tooth that is now infected x2 days Reason Onset Date Comments Refill Request Refill Request 01/28/2023 Reason Comments Consult Discuss surgery opti on Reason Comments No Show Reason Onset Date Comments Transition Of Care 03/14/2023 [facility] 03-12-23. Reason Comments Abdominal Pain Specialty Diagnoses / Procedures Referred By Contac t Referred To Contact Diagnoses Ventral hernia without obstruction or gangrene Abd pain, Hx of ventral hernia repair Susan Medina MD [address] [place] [address] [facility] [address] [place] [address] Referral ID Status Reason Start Date Expiration Date Visits Re quested Visits Authorized [id number] 1 1 Specialty Diagnoses / Procedures Referred By Contac t Referred To Contact Diagnoses Ventral hernia with obstruction and without gangrene Procedures K43.6 Chad Boss DO [address] [place] [address] [facility] [address] [place] [phone] Referral ID Status Reason Start Date Expiration Date Visits Re quested Visits Authorized [id number] 1 1 Reason Comments Abdominal Pain Pt right sided abdom inal pain. States has large hernia. LBM was last night. C/o nausea. Specialty Diagnoses / Procedures Referred By Contac t Referred To Contact Diagnoses Ventral hernia with obstruction and without gangrene Procedures K43.6 Chad Boss DO [address] [place] [address] [facility] [address] [place] [phone] Reason Onset Date Comments Hospital Follow-up 09/16/2023 Reason Comments Abdominal Pain Pt c/o abdominal nancy n x 3 days after days of coughing. States has abdominal hernia. States vomited once since Tuesday Reason Comments Surgical Consult New Surg Specialty Diagnoses / Procedures Referred By Contac t Referred To Contact Bariatrics Diagnoses Ventral hernia with obstruction and without gangrene Procedures LA OFFICE/OUTPATIENT NEW HIGH MDM 60 MINUTES Marilyn Sorto PA [address] [place] [address] Serafin Taylor, DO [address] [facility] [address] [place] [address] Referral ID Status Reason Start Date Expiration Date Visits Requested Visits Authorized [id number] Pending Review Specialty Services Required 10/20/2023 10/19/2024 1 1 Reason Onset Date Comments Financial File 11/15/2023 Financial File 2 024 Surgery Scheduling 11/15/2023 Initial Sched uling - Orders Pended Reason Onset Date Comments Financial File 11/15/2023 Financial File 2 024 Surgery Scheduling 11/15/2023 Initial Sched uling - Orders Pended Reason Comments EGD / Colonoscopy EGD / C-scopt order Specialty Diagnoses / Procedures [facility] Referred To Contact Diagnoses Generalized abdominal pain Other specified symptoms and signs involving the digestive system and abdomen Generalized abdominal pain [R10.84] Other specified symptoms and signs involving the digestive system and abdomen [R19.8] Procedures LA EGD TRANSORAL BIOPSY SINGLE/MULTIPLE LA COLONOSCOPY W/BIOPSY SINGLE/MULTIPLE ESOPHAGOGASTRODUODENOSCOPY WITH BIOPSY, COLONOSCOPY WITH BIOPSY COLONOSCOPY WITH BIOPSY Serafin Taylor, [address] [place] [address] [facility] [address] [place] [address] Referral ID Status Reason Start Date Expiration Date Visits Re quested Visits Authorized [id number] 1 1 Reason Comments Weight Loss D/E 1 iof 3 Reason Comments Abdominal Pain Reason Onset Date Comments Abdominal Pain 12/29/2023 Reason Comments Med Refill Reason Comments Weight Loss NSURG Reason Comments Refill Request Reason Comments Weight Loss NSURG #2 Reason Comments Weight Loss NSURG #3 Reason Comments Abdominal Pain Abd hernia Specialty Diagnoses / Procedures [facility] Referred To Contact Diagnoses Generalized abdominal pain Partial small bowel obstruction (HCC) Ventral hernia with obstruction and without gangrene Procedures . Serafin Taylor, [address] [place] [address] [phone] Referral ID Status Reason Start Date Expiration Date Visits Re quested Visits Authorized [id number] 1 1 Reason Comments Abdominal Pain Constipation Specialty Diagnoses / Procedures [facility] Referred To Contact Diagnoses Ventral hernia without obstruction or gangrene Procedures . Tiffanie Forrest MD [address] [place] [address] [facility] [address] [place] [address] Referral ID Status Reason Start Date Expiration Date Visits Re quested Visits Authorized [id number] 1 1 Reason Comments Abdominal Pain Pt arrived via [facility] with c/o abd pain since 1900. Sts she has a hernia that is set for surgical repair as soon as she is able to lose 15 more lbs. Tonight pain started as a dull ache in the RLQ and has progressed to an 8/10 sharp, stabbing pain that caused her to vomit. Sts she took a phenergan suppository and ibuprofen. Pt also has a know bowel obstruction and has not passed any gas or had a bowel movement today Specialty Diagnoses / Procedures Referred By Brooke pickering Referred To Contact Diagnoses Ventral hernia without obstruction or gangrene Procedures . Tiffanie Forrest MD [address] [place] [address] [facility] [address] [place] [phone] Reason Onset Date Comments Abdominal Pain 04/24/2024 Reason Comments Establish Care Reason Comments Referral Information Gastroenterology Reason Comments REFERRAL To General Surgery Reason Comments Patient Update Reason Onset Date Comments Refill Request 05/11/2024 Reason Onset Date Comments Abdominal Pain 04/15/2024 Reason Comments Follow-up PT HAS ACHIEVED WL A [place] WOULD LIKE TO DISCUSS SURGERY Reason Onset Date Comments Other 06/21/2024 Reason Onset Date Comments Hernia 07/08/2024 Reason Comments Abdominal Pain Pain related to abd hernia Syncope Reason Onset Date Comments Refill Request 07/16/2024 Reason Onset Date Comments Refill Request 07/25/2024 Reason Onset Date Comments Refill Request 08/13/2024 oxyCODONE-acetam inophen (PERCOCET) 5-325 mg tablet Reason Comments Abdominal Pain Present for abdomina l pain and not being able to keep anything down since Tuesday night. Hx of hiatal hernia. Has surgery for it scheduled in August. Specialty Diagnoses / Procedures Referred By Brooke pickering Referred To Contact Diagnoses Ventral hernia without obstruction or gangrene Bilateral renal stones Procedures . Serafin Tyalor, [address] [place] [address] Phone: tel: fax: [facility] Medical Surgical Unit [address] [place] [address] Phone: tel: Referral ID Status Reason Start Date Expiration Date Visits Re quested Visits Authorized [id number] 1 1 Reason Comments Post-op Reason Comments Follow Up Post op hernia repai r Reason Comments Follow-up Reason Onset Date Comments Results 09/03/2024 CT Reason Onset Date Comments Refill Request 09/21/2024 Reason Comments Abdominal Pain Generalized abd pain 05/19 since this AM, pt had a hernia repair on 08/07 and recently had an abdominal drain that came out. Denies dysuria, +N/+V/-D. LBM was last night, pt states it was watery. Denies fevers/chills Reason Comments Abdominal Pain LLQ since yesterday. Vomiting. History of multiple abdominal surgeries Reason Comments Hernia Lower abd pain , hx of hernia repair , pt states she moved wrong and felt a tug or a pop Specialty Diagnoses / Procedures Referred By Contac t Referred To Contact Diagnoses Intractable abdominal pain Procedures 0 Dilip Yen MD [address] [place] [address] Phone: tel: fax: [facility] Medical Unit [address] [place] [phone] Phone: tel: Referral ID Status Reason Start Date Expiration Date Visits Re quested Visits Authorized [id number] 1 1 Reason Comments Abdominal Pain Post hernia surgery with remaining adhesions. Needs one more surgery as initial could not be completed. Reason Onset Date Comments Other 04/29/2025 Reason Comments Abdominal Pain Pt states she was at work today when she stood up and felt a pop in her RLQ. PT reports pain and nausea. Pt states she had a hernia repair in Jul. Specialty Diagnoses / Procedures Referred By Contac t Referred To Contact Diagnoses Ventral hernia without obstruction or gangrene Abnormal CT of the abdomen Intractable abdominal pain Procedures .. Dilip Yen MD [address] [place] [address] Phone: tel: fax: [facility] Medical Unit [address] [place] [address] Phone: tel: Referral ID Status Reason Start Date Expiration Date Visits Re quested Visits Authorized 1 Reason Onset Date Comments Post-op 11/23/2024 Reason Comments Forms [facility] [employer] [facility] et[facility]- disability form Reason Comments Abdominal Pain Patient from work vi a EMS due to sudden severe abdominal pain. Patient has a history of hernias and has felt sore since new hernia formation. Patient stated she was on the toilet and felt she had to have a bowel movement. Patient stated no bowel movement occurred however a sharp, sudden pain covered her upper umbilical region. Patient described a 10/10 pain. Specialty Diagnoses / Procedures Referred By Brooke pickering Referred To Contact Diagnoses Periumbilical abdominal pain Procedures 0 Cody Jeter DO [address] [place] [address] Phone: tel: fax: [facility] Medical Surgical Unit [address] [place] [address] Phone: tel: Referral ID Status Reason Start Date Expiration Date Visits Re quested Visits Authorized 1 1 Reason Comments Abdominal Pain Reason Comments Follow-up follow up after pain management Reason Onset Date Comments Refill Request 06/20/2025 Reason Comments Abdominal Pain Pt states she is con cerned she has a bowel obstruction, pt states she has a hx of bowel obstructions and this pain is similar but worse than the previous. Pt states she had a small bowel movement yesterday, unable to pass gas today. Pt also reports vomiting. Specialty Diagnoses / Procedures Referred By Brooke t Referred To Contact Diagnoses Generalized abdominal pain Procedures ... Brent Blanco MD [address] [place] [address] Phone: tel: fax: [facility] EMERGENCY DEPT [address] [place] [address] Phone: tel: fax: Referral ID Status Reason Start Date Expiration Date Visits Re quested Visits Authorized 1 1 Reason Comments Abdominal Pain Pt. Reports from wor k after having a syncopal event. Pt. Reports using the restroom, felling extreme abd pain, then when standing up she felt like she was having a syncopal event, hit her head on one of the dividers in the bathroom, and regained full consciousness. A&Ox4. Hx of Hernia w/ 2 surgeries last surgery Oct. Last year. Pt. Currently states she feels the dizzy sensation she felt before she had her syncopal event. Syncope Scheduled Active and Recently Administ ered Medications (unrecognized section and content) Medication Order 03/15/2021 03/16/2021 03/17/2021 HYDROmorphone (DILAUDID) injection 0.5 mg (COMPLETED) 0.5 mg, Intravenous, Once, On Tue03/17/21 at 0855, For 1 dose 0914 (Given - Provid er: Pepper Quinones RN) prochlorperazine (COMPAZINE) injection 10 mg (COMPLETED) 10 mg, Intravenous, Once, On Tue03/17/21 at 0855, For 1 dose, If IV, give slow IV push at a rate not exceeding 5 mg/minute and remain lying down for 30 minutes to reduce risk of hypotension. If IM, inject deep into outer buttocks quadrant. 0914 (Given - Provid er: Pepper Quinones, MARIE) Continuous Medication Order 03/15/2021 03/16/2021 03/17/2021 sodium chloride 0.9% (NS) 200 mL/hr, Intravenous, Continuous, Starting on Tue03/17/21 at 0855 0912 (New Bag - Prov ider: Pepper Quinones, MARIE)1056 (Stopped - Provider: Pepper Quinones, RN) PRN Medication Order 03/15/2021 03/16/2021 03/17/2021 iopamidoL (ISOVUE-370) 76 % injection 75 mL (COMPLETED) 75 mL, Intravenous, Once in imaging, contrast, Per locksmith helper (Radiology), Starting on Tue03/17/21 at 0849, For 1 dose 0934 (Contrast Admin istered - Provider: Susan Dumont, TECHNOLOGIST) sodium chloride (PF) (NS) 0.9 % contrast line flush 10 mL (COMPLETED) 10 mL, Intravenous, Once in imaging, contrast, Per locksmith helper (Radiology) for line patency check prior to contrast administration, Starting on Tue03/17/21 at 0849, For 1 dose 0937 (Given - Provid er: Susan Dumont, TECHNOLOGIST) sodium chloride (PF) (NS) 0.9 % contrast line flush 80 mL (COMPLETED) 80 mL, Intravenous, Once in imaging, contrast, Per locksmith helper (Radiology), Starting on Tue03/17/21 at 0849, For 1 dose, 30 mL BEFORE contrast administration 50 mL AFTER contrast administration 0937 (Given - Provid er: Susan Dumont, TECHNOLOGIST) Scheduled Medication Order 06/28/2023 06/29/2023 06/30/2023 Cyclobenzaprine (FLEXERIL) tablet 10 mg 10 mg, Oral, 3 TIMES DAILY, First dose on Tue06/29/23 at 0900, Until Discontinued 0836 (Given - Provider: Susan Ma RN)1322 (Given - Provider: Susan Ma RN)2137 (Given - Provider: Nenita Riddle RN) 0804 (Given - Provider: Kieran Webster RN)1400 (Canceled Entry - Provider: System Discharge - Comment: Automatically canceled at discontinue of medication order) Enoxaparin Sodium (LOVENOX) injection 40 mg 40 mg, Subcutaneous, EVERY 24 HOURS, First dose on Tue06/28/23 at 1415, Until Discontinued, Indications: DVT/PE prophylaxis 1437 (Given - Provider: Bud Mendez RN) 1318 (Held by provider - Provider: Patrick Kong MD - Reason: Other)1415 (Automatically Held - Provider: Patrick Kong MD)1651 (Unheld by provider - Provider: Lou Sosa MD)1735 (Given - Provider: Susan Ma RN) 1415 (Canceled Entry - Provider: System Discharge - Comment: Automatically canceled at discontinue of medication order) HYDROmorphone (DILAUDID) injection 0.5 mg (COMPLETED) 0.5 mg, Intravenous, ONCE, 1 dose, On Tue06/28/23 at 0700 0639 (Given - Provider: Alma Delia Lopez RN) HYDROmorphone (DILAUDID) injection 1 mg (COMPLETED) 1 mg, Intravenous, ONCE, 1 dose, On Tue06/28/23 at 0930 0933 (Given - Provider: Bud Mendez, MARIE) HYDROmorphone (DILAUDID) injection 1 mg (COMPLETED) 1 mg, Intravenous, ONCE, 1 dose, On Tue06/28/23 at 1400 1333 (Given - Provider: Bud Mendez RN) HYDROmorphone (DILAUDID) injection 1 mg (COMPLETED) 1 mg, Intravenous, ONCE, 1 dose, On Tue06/29/23 at 1345 1322 (Given - Provider: Susan Ma, RN) Lactated ringers IV solution 1,000 mL (COMPLETED) 1,000 mL, Intravenous, ONCE, 1 dose, On Tue06/28/23 at 0700, Fluid Bolus 0636 ($$New Bag$$ - Provider: Alma Delia Lopez RN)0940 (Stopped - Provider: Bud Mendez RN) lidocaine 4 % patch 1 patch 1 patch, Transdermal, Administer over 12 Hours, EVERY 24 HOURS, First dose on Tue06/30/23 at 0800, Until Discontinued, Apply to abdomen. 0806 (Not Given - Provider: Kieran Webster RN - Reason: Patient/family refused) Pantoprazole (PROTONIX) tablet DR 40 mg 40 mg, Oral, DAILY, First dose on Tue06/30/23 at 0900, Until Discontinued, Swallow whole; do not crush or chew., Indications: GERD 0804 (Given - Provider: Kieran Webster, MARIE) Polyethylene glycol (MIRALAX) packet 17 g 17 g, Oral, DAILY, First dose on Tue06/28/23 at 1415, Until Discontinued 1424 (Not Given - Provider: Bud Mendez RN - Reason: Patient/family refused) 0844 (Not Given - Provider: Susan Ma RN - Reason: Patient/family refused) 0801 (Not Given - Provider: Kieran Webster RN - Reason: Order Parameters not met) Prochlorperazine (COMPAZINE) injection 10 mg (COMPLETED) 10 mg, Intravenous, ONCE, 1 dose, On Tue06/28/23 at 0715, For IV route: dilute dose with 10mL normal saline and give by slow IV push at a rate of 5mg/min. Maximum of 40mg/day. 0642 (Given - Provider: Alma Delia Lopez RN) Promethazine (PHENERGAN) injection 6.25 mg (COMPLETED) 6.25 mg, Intravenous, ONCE, 1 dose, On Tue06/29/23 at 0000, Extravasation Risk. If given via IV route: dilute dose with 10mL normal saline and inject through a running IV or line over 5 minutes OR if no active IV or line is saline-dwelled dilute dose with 20mL normal saline and administer over 5 minutes. AVOID Intra-arterial administration; necrosis & gangrene have resulted. Hand, wrist or foot veins SHOULD BE AVOIDED. 0001 (Given - Provider: Aundrea Laboy RN) Promethazine (PHENERGAN) tablet 12.5 mg (COMPLETED) 12.5 mg, Oral, ONCE, 1 dose, On Tue06/28/23 at 0930 0932 (Given - Provider: Bud Mendez RN) Continuous Medication Order 06/28/2023 06/29/2023 06/30/2023 dextrose 5% and sodium chloride 0.45% 1,000 ml with potassium chloride 20 mEq premix IV solution (CANCELED) Intravenous, at 100 mL/hr, CONTINUOUS, Starting on Tue06/28/23 at 1345, Until Tue06/30/23 at 0719 1437 ($$New Bag$$ - Provider: Bud Mendez RN)1437 (Rate/Dose Verify - Provider: Moira Maguire RN)1751 (Paused - Provider: Moira Maguire RN)1751 (Paused - Provider: Moira Maguire RN)1756 (Paused - Provider: Moira Maguire RN)175 (Restarted - Provider: Moira Maguire RN)192 (Paused - Provider: Moira Maguire RN)192 (Restarted - Provider: Moira Maguire RN)193 (Rate/Dose Verify - Provider: Moira Maguire RN)2051 (Paused - Provider: Aundrea Laboy RN)2056 (Restarted - Provider: Aundrea Laboy RN)2118 (Paused - Provider: Aundrea Laboy RN)2121 (Restarted - Provider: Aundrea Laboy RN)2220 (Stopped - Provider: Aundrea Laboy RN)222 ($$New Bag$$ - Provider: Aundrea Laboy RN) 0004 (Paused - Provider: Aundrea Laboy RN)0011 (Restarted - Provider: Aundrea Laboy RN)0221 (Rate/Dose Verify - Provider: Aundrea Laboy RN)0302 (Paused - Provider: Aundrea Laboy RN)0350 (Restarted - Provider: Aundrea Laboy RN)0623 (Rate/Dose Verify - Provider: Aundrea Laboy RN)0633 (Stopped - Provider: Susan Ma RN)0633 ($$New Bag$$ - Provider: Aundrea Laboy RN)0818 (Rate/Dose Verify - Provider: Susan Ma RN)1323 (Paused - Provider: Susan Ma RN)1324 (Restarted - Provider: Susan Ma RN)1423 (Rate/Dose Change - Provider: Susan Ma RN)1428 (Rate/Dose Change - Provider: Susan Ma RN)1433 (Stopped - Provider: Susan Ma RN)1433 ($$New Bag$$ - Provider: Susan Ma RN)1543 (Rate/Dose Verify - Provider: Susan Ma RN)1617 (Paused - Provider: Susan Ma RN)1619 (Restarted - Provider: Susan Ma RN)1718 (Rate/Dose Change - Provider: Susan Ma RN)1734 (Paused - Provider: Susan Ma RN)1734 (Restarted - Provider: Susan Ma RN)1804 (Rate/Dose Verify - Provider: Susan Ma RN)2138 (Rate/Dose Verify - Provider: Kieran Webster RN)2306 (Stopped - Provider: Kieran Webster RN)2306 ($$New Bag$$ - Provider: Nenita Riddle RN) 0752 (Rate/Dose Verify - Provider: Kieran Webster RN)0801 (Stopped - Provider: Kieran Webster RN) PRN Medication Order 06/28/2023 06/29/2023 06/30/2023 Acetaminophen (TYLENOL) tablet 650 mg 650 mg, Oral, EVERY 6 HOURS NEEDED, Starting on Tue06/28/23 at 1847, Until Tue06/30/23 at 1427, Mild Pain, Moderate Pain, Maximum dose of acetaminophen is 4000 mg from all sources in 24 hours. HYDROmorphone (DILAUDID) injection 0.5 mg (CANCELED)(Linked Group 1) 0.5 mg, Intravenous, EVERY 4 HOURS NEEDED, Starting on Tue06/28/23 at 2045, Until Tue06/28/23 at 2305, Moderate Pain, Severe Pain, Higher dose may be administered if lower dose was previously documented as ineffective and did not result in adverse effects (RR<10, negative change in RASS of 2 or more). Decrease back to lower dose if patient has adverse effects or no PRN use in previous 12 hours. Hold for sedation. 2117 (Given - Provider: Moira Maguire RN) oxyCODONE (ROXICODONE) tablet 5 mg (CANCELED) 5 mg, Oral, EVERY 4 HOURS NEEDED, Starting on Tue06/28/23 at 1847, Until Tue06/29/23 at 0755, Severe Pain 1854 (Given - Provider: Bud Mendez RN) 0214 (Given - Provider: Aundrea Laboy RN)0635 (Given - Provider: Aundrea Laboy RN) oxyCODONE (ROXICODONE) tablet 5 mg(Linked Group 2) 5 mg, Oral, EVERY 4 HOURS NEEDED, Starting on Tue06/29/23 at 1314, Until Tue06/30/23 at 1427, Severe Pain 1428 (Given - Provider: Susan Ma RN)1851 (See Alternative - Provider: Susan Ma RN)2303 (Given - Provider: Nenita Riddle RN) 0302 (See Alternative - Provider: Nenita Riddle RN)0658 (Given - Provider: Nenita Riddle, MARIE)1120 (Given - Provider: Kieran Webster RN) oxyCODONE HCl (ROXICODONE) tablet 10 mg(Linked Group 2) 10 mg, Oral, EVERY 4 HOURS NEEDED, Starting on Tue06/29/23 at 1314, Until Tue06/30/23 at 1427, Severe Pain 1428 (See Alternative - Provider: Susan Ma RN)1851 (Given - Provider: Susan Ma RN)2303 (See Alternative - Provider: Nenita Riddle RN) 0302 (Given - Provider: Nenita Riddle RN)0658 (See Alternative - Provider: Nenita Riddle RN)1120 (See Alternative - Provider: Kieran Webster RN) Phenol (CHLORASEPTIC) 1.4 % oral spray 1 spray 1 spray, Mouth/Throat, NEEDED, Starting on Tue06/28/23 at 1335, Until Bella 06/30/23 at 1427, Sore Throat, Patient may self-administer. Prochlorperazine (COMPAZINE) injection 5 mg(Linked Group 3) 5 mg, Intravenous, EVERY 6 HOURS NEEDED, Starting on Tue06/28/23 at 1335, Until Bella 06/30/23 at 1427, Refractory Nausea Vomiting, If unrelieved by Ondansetron. Administer IV if patient is unable to tolerate PO. 175 (See Alternative - Provider: Bud Mendez RN) 0635 (See Alternative - Provider: Aundrea Laboy RN)1616 (Given - Provider: Susan Ma, MARIE) Prochlorperazine (COMPAZINE) tablet 5 mg(Linked Group 3) 5 mg, Oral, EVERY 6 HOURS NEEDED, Starting on Tue06/28/23 at 1335, Until Bella 06/30/23 at 1427, Refractory Nausea Vomiting, If unrelieved by Ondansetron. 175 (Given - Provider: Bud Mendez RN) 0635 (Given - Provider: Aundrea Laboy, MARIE)1616 (See Alternative - Provider: Susan Ma, MARIE) Sodium chloride 0.9% IV solution 250 mL Intravenous, at 20 mL/hr, NEEDED, Starting on Tue06/28/23 at 1335, Until Bella 06/30/23 at 1427, Carrier Fluid - See Admin. Inst, 250mL 0.9NS to be used as carrier fluid for intermittent small volume or piggyback medication administration as needed. Infusion rate of the carrier fluid should be set at 20 mL/hr unless the rate as the intermittent medication is less than 20 mL/hr. For intermittent medications with a rate less than 20 mL/hr set the carrier fluid at that rate of the intermittent or piggy back medication. Linked Groups Order Group 1: HYDROmorphone (DILAUDID) injection 0.2 mg (CANCELED) 0.2 mg, Intravenous, EVERY 3 HOURS NEEDED, Starting on Tue06/28/23 at 2045, Until Tue06/28/23 at 2305, Moderate Pain, Severe Pain
Use as initial dose. Higher dose may be administered if lower dose was previously documented as ineffective and did not result in adverse effects (RR<10, negative change in RASS of 2 or more).
Or HYDROmorphone (DILAUDID) injection 0.5 mg (CANCELED)Jump to med 0.5 mg, Intravenous, EVERY 4 HOURS NEEDED, Starting on Tue06/28/23 at 204, Until Tue06/28/23 at 2305, Moderate Pain, Severe Pain
Higher dose may be administered if lower dose was previously documented as ineffective and did not result in adverse effects (RR<10, negative change in RASS of 2 or more). Decrease back to lower dose if patient has adverse effects or no PRN use in previous 12 hours. Hold for sedation.
Group 2: oxyCODONE (ROXICODONE) tablet 5 mgJump to med 5 mg, Oral, EVERY 4 HOURS NEEDED, Starting on Tue06/29/23 at 1314, Until Bella 06/30/23 at 1427, Severe Pain Or oxyCODONE HCl (ROXICODONE) tablet 10 mgJump to med 10 mg, Oral, EVERY 4 HOURS NEEDED, Starting on Tue06/29/23 at 1314, Until Bella 06/30/23 at 1427, Severe Pain Group 3: Prochlorperazine (COMPAZINE) tablet 5 mgJump to med 5 mg, Oral, EVERY 6 HOURS NEEDED, Starting on Tue06/28/23 at 1335, Until Bella 06/30/23 at 1427, Refractory Nausea Vomiting
If unrelieved by Ondansetron.
Or Prochlorperazine (COMPAZINE) injection 5 mgJump to med 5 mg, Intravenous, EVERY 6 HOURS NEEDED, Starting on Tue06/28/23 at 1335, Until Tue06/30/23 at 1427, Refractory Nausea Vomiting
If unrelieved by Ondansetron. Administer IV if patient is unable to tolerate PO.
Scheduled Medication Order 09/13/2023 09/14/2023 09/15/2023 busPIRone (Buspar) tablet 30 mg 30 mg, Oral, 2 times daily, First dose on Tue09/13/23 at 2300 2300 (Not Given - Provider: Cassi Hernandes RN - Reason: Patient/family refused) 08 (Given - Provider: Dylan Brink, MARIE)2056 (Given - Provider: Eloisa Max, MARIE) 0853 (Given - Provider: Negro Bal RN) enoxaparin (Lovenox) syringe 30 mg 30 mg, SubCUTAneous, Every 12 hours scheduled (2 times per day), First dose on Tue09/13/23 at 2100, Indication of Use: Prophylaxis-DVT/PE 2039 (Given - Provider: Cassi Hernandes RN) 08 (Given - Provider: Dylan Brink RN)2056 (Given - Provider: Eloisa Max RN) 0853 (Given - Provider: Negro Bal RN) FLUoxetine (PROzac) capsule 80 mg 80 mg, Oral, Daily, First dose on Tue09/14/23 at 0800 0807 (Given - Provider: Dylan Brink RN) 0853 (Given - Provider: Negro Bal RN) metoclopramide (Reglan) injection 10 mg (COMPLETED) 10 mg, IntraVENous, Once, On Tue09/13/23 at 1130, For 1 dose 1222 (Given - Provider: Moira Galeano, MARIE) morphine injection 4 mg (COMPLETED) 4 mg, IntraVENous, Once, On Tue09/13/23 at 1350, For 1 dose, If oral and IV narcotics ordered, use oral first and only use IV if oral is ineffective or cannot take oral. Do Not give oral and IV within 1 hour of each other unless specifically ordered. 1358 (Given - Provider: Jacky De La Cruz RN) morphine injection 4 mg (COMPLETED) 4 mg, IntraVENous, Once, On Tue09/13/23 at 1700, For 1 dose, If oral and IV narcotics ordered, use oral first and only use IV if oral is ineffective or cannot take oral. Do Not give oral and IV within 1 hour of each other unless specifically ordered. 1715 (Given - Provider: Moira Galeano, RN) sodium chloride 0.9 % bolus 1,000 mL (COMPLETED) 1,000 mL, IntraVENous, at 1,000 mL/hr, Administer over 1 Hours, Once, On Tue09/13/23 at 1130, For 1 dose 1222 (New Bag - Provider: Moira Galeano, RN)1645 (Stopped - Provider: Moira Galeano, RN) Continuous Medication Order 09/13/2023 09/14/2023 09/15/2023 dextrose 5 % and sodium chloride 0.9 % infusion 125 mL/hr, IntraVENous, Continuous, Starting on Tue09/13/23 at 2145 2221 (New Bag - Provider: Cassi Hernandes RN) 0010 (Rate/Dose Verify - Provider: Cassi Hernandes RN)0443 (Rate/Dose Verify - Provider: Cassi Hernandes RN)0529 (Stopped - Provider: Cassi Hernandes, MARIE)0530 (New Bag - Provider: Cassi Hernandes RN)0619 (Rate/Dose Verify - Provider: Cassi Hernandes RN)1334 (New Bag - Provider: Dylan Brink RN)2316 (New Bag - Provider: Eloisa Max, MARIE) 0652 (New Bag - Provider: Eloisa Max, MARIE)0855 (Rate/Dose Verify - Provider: Negro Bal, RN)1127 (Stopped - Provider: Negro Bal RN) PRN Medication Order 09/13/2023 09/14/2023 09/15/2023 acetaminophen (Tylenol) suppository 650 mg(Linked Group 1) 650 mg, Rectal, Every 6 hours PRN, mild pain (1-3), fever, For temp greater than 100.4 F (38 C), Starting on Tue09/13/23 at 1956, Administer if oral route cannot be used. Maximum dose of acetaminophen is 4000 mg from all sources in 24 hours. acetaminophen (Tylenol) tablet 650 mg(Linked Group 1) 650 mg, Oral, Every 6 hours PRN, mild pain (1-3), fever, For temp greater than 100.4 F (38 C), Starting on Tue09/13/23 at 1956, Maximum dose of acetaminophen is 4000 mg from all sources in 24 hours. morphine injection 2 mg (CANCELED) 2 mg, IntraVENous, Every 2 hour PRN, severe pain (7-10), moderate pain (4-6), Starting on Tue09/13/23 at 1956, If oral and IV narcotics ordered, use oral first and only use IV if oral is ineffective or cannot take oral. Do Not give oral and IV within 1 hour of each other unless specifically ordered. 2039 (Given - Provider: Cassi Hernandes RN)222 (Given - Provider: Cassi Hernandes RN) 0023 (Given - Provider: Cassi Hernandes RN)0246 (Given - Provider: Cassi Hernandes, MAIRE)0530 (Given - Provider: Cassi Hernandes RN)0809 (Given - Provider: Dylan Brnik RN)1031 (Given - Provider: Dylan Brink RN)1333 (Given - Provider: Dylan Brink RN)1538 (Given - Provider: Dylan Brink RN)1843 (Given - Provider: Dylan Brink RN)2048 (Given - Provider: Eloisa Max RN)2253 (Given - Provider: Serena Bustillo RN) morphine injection 2 mg 2 mg, IntraVENous, Every 4 hours PRN, severe pain (7-10), Starting on Tue09/14/23 at 2315, If oral and IV narcotics ordered, use oral first and only use IV if oral is ineffective or cannot take oral. Do Not give oral and IV within 1 hour of each other unless specifically ordered. 0255 (Given - Provider: Eloisa Max RN)0650 (Given - Provider: Eloisa Max, MARIE)1100 (Given - Provider: Negro Bal RN) prochlorperazine (Compazine) injection 5 mg 5 mg, IntraVENous, Every 6 hours PRN, nausea, vomiting, Starting on Tue09/13/23 at 1959 2039 (Given - Provider: Cassi Hernandes, MARIE) 0246 (Given - Provider: Cassi Hernandes, MARIE) Linked Groups Order Group 1: acetaminophen (Tylenol) tablet 650 mgJump to med 650 mg, Oral, Every 6 hours PRN, mild pain (1-3), fever, For temp greater than 100.4 F (38 C), Starting on Tue09/13/23 at 1956, Maximum dose of acetaminophen is 4000 mg from all sources in 24 hours. Or acetaminophen (Tylenol) suppository 650 mgJump to med 650 mg, Rectal, Every 6 hours PRN, mild pain (1-3), fever, For temp greater than 100.4 F (38 C), Starting on Tue09/13/23 at 1956, Administer if oral route cannot be used. Maximum dose of acetaminophen is 4000 mg from all sources in 24 hours. Scheduled Medication Order 10/18/2023 10/19/2023 10/20/2023 busPIRone (Buspar) tablet 30 mg 30 mg, Oral, 2 times daily, First dose on Tue10/20/23 at 0900 0832 (Given - Provid er: Negro Bal RN) FLUoxetine (PROzac) capsule 80 mg 80 mg, Oral, Daily, First dose on Tue10/20/23 at 0800 0831 (Given - Provid er: Negro Bal RN) HYDROmorphone (Dilaudid) injection 1 mg (COMPLETED) 1 mg, IntraVENous, Once, On Tue10/19/23 at 1035, For 1 dose, If oral and IV narcotics ordered, use oral first and only use IV if oral is ineffective or cannot take oral. Do Not give oral and IV within 1 hour of each other unless specifically ordered. 1058 (Given - Provider: Doris Rdz RN) HYDROmorphone (Dilaudid) injection 1 mg (COMPLETED) 1 mg, IntraVENous, Once, On Tue10/19/23 at 1205, For 1 dose, If oral and IV narcotics ordered, use oral first and only use IV if oral is ineffective or cannot take oral. Do Not give oral and IV within 1 hour of each other unless specifically ordered. 1208 (Given - Provider: Doris Rdz RN) HYDROmorphone (Dilaudid) injection 1 mg (COMPLETED) 1 mg, IntraVENous, Once, On Tue10/19/23 at 1410, For 1 dose, If oral and IV narcotics ordered, use oral first and only use IV if oral is ineffective or cannot take oral. Do Not give oral and IV within 1 hour of each other unless specifically ordered. 1410 (Given - Provider: Doris Rdz, MARIE) promethazine (Phenergan) injection 6.25 mg (COMPLETED) 6.25 mg, IntraMUSCular, Once, On Tue10/19/23 at 1035, For 1 dose, Only to be given as IM injection. 1057 (Given - Provider: Doris Rdz, RN) sodium chloride 0.9 % bolus 1,000 mL (COMPLETED) 1,000 mL, IntraVENous, at 1,000 mL/hr, Administer over 1 Hours, Once, On Tue10/19/23 at 1035, For 1 dose 1054 (New Bag - Provider: Doris Rdz RN)1607 (Stopped - Provider: Patricio Reeves RN - Comment: pt arrived without fluids running) sodium chloride 0.9% (NS) flush 10 mL 10 mL, IntraVENous, Every 12 hours scheduled (2 times per day), First dose on Tue10/19/23 at 2100 0236 (Given - Provid er: Derek Bal RN)0830 (Given - Provider: Negro Bal RN) Continuous Medication Order 10/18/2023 10/19/2023 10/20/2023 sodium chloride 0.9 % infusion 100 mL/hr, IntraVENous, Continuous, Starting on Tue10/19/23 at 1255 1819 (New Bag - Provider: Patricio Reeves RN) 0940 (Rate/Dose Verify - Provider: Negro Bal RN)1204 (New Bag - Provider: Negro Bal RN)1309 (Rate/Dose Verify - Provider: Negro Bal RN)1634 (Stopped - Provider: Negro Bal RN) PRN Medication Order 10/18/2023 10/19/2023 10/20/2023 acetaminophen (Tylenol) suppository 650 mg(Linked Group 1) 650 mg, Rectal, Every 6 hours PRN, mild pain (1-3), fever, For temp greater than 100.4 F (38 C), Starting on Tue10/19/23 at 1246, Administer if oral route cannot be used. Maximum dose of acetaminophen is 4000 mg from all sources in 24 hours. acetaminophen (Tylenol) tablet 650 mg(Linked Group 1) 650 mg, Oral, Every 6 hours PRN, mild pain (1-3), fever, For temp greater than 100.4 F (38 C), Starting on Tue10/19/23 at 1246, Maximum dose of acetaminophen is 4000 mg from all sources in 24 hours. HYDROmorphone (Dilaudid) injection 0.5 mg 0.5 mg, IntraVENous, Every 4 hours PRN, severe pain (7-10), Starting on Tue10/19/23 at 1248, If oral and IV narcotics ordered, use oral first and only use IV if oral is ineffective or cannot take oral. Do Not give oral and IV within 1 hour of each other unless specifically ordered. 0832 (Given - Provid er: Negro Bal RN)1408 (Given - Provider: Negro Bal, RN) morphine injection 4 mg 4 mg, IntraVENous, Every 4 hours PRN, moderate pain (4-6), Starting on Tue10/19/23 at 1249, If oral and IV narcotics ordered, use oral first and only use IV if oral is ineffective or cannot take oral. Do Not give oral and IV within 1 hour of each other unless specifically ordered. 1815 (Given - Provider: Patricio Reeves RN)2224 (Given - Provider: Derek Bal, RN) 0232 (Given - Provider: Derek Bal, RN)0645 (Given - Provider: Derek Bal, RN)1204 (Given - Provider: Negro Bal, RN)1636 (Given - Provider: Negro Bal, RN) naloxone (Narcan) injection 0.4 mg 0.4 mg, IntraVENous, PRN, opioid reversal, Starting on Tue10/19/23 at 1249, For oversedation/difficult to rouse, pinpoint pupils, RR < 8; notify primary team longwall headgate operator if used prochlorperazine (Compazine) injection 10 mg 10 mg, IntraVENous, Every 6 hours PRN, nausea, vomiting, Starting on Tue10/19/23 at 1258, Give IV if patient is unable to take orally. Give IM if patient is unable to take orally and does not have IV access. sodium chloride 0.9 % infusion 5-250 mL/hr, IntraVENous, PRN, if patient receiving piggyback infusions and maintenance fluids are not ordered OR KVO fluids to protect IV site / prevent frequent line interruptions/ long duration, Starting on Tue10/19/23 at 1246, For piggyback infusion, administer at same rate as piggyback for a total of 25 mL. Enter 25 mL into dose field and piggyback rate into rate field of order. If piggyback is infusing at a rate less than 100 mL/hr, enter 25 mL into dose field and 100 mL/hr into rate field of order. For KVO fluids, enter rate of 20 mL/hr or less into rate field of order. sodium chloride 0.9% (NS) flush 10 mL 10 mL, IntraVENous, PRN, line care, Starting on Tue10/19/23 at 1246, After every IV line use Linked Groups Order Group 1: acetaminophen (Tylenol) tablet 650 mgJump to med 650 mg, Oral, Every 6 hours PRN, mild pain (1-3), fever, For temp greater than 100.4 F (38 C), Starting on Tue10/19/23 at 1246, Maximum dose of acetaminophen is 4000 mg from all sources in 24 hours. Or acetaminophen (Tylenol) suppository 650 mgJump to med 650 mg, Rectal, Every 6 hours PRN, mild pain (1-3), fever, For temp greater than 100.4 F (38 C), Starting on Tue10/19/23 at 1246, Administer if oral route cannot be used. Maximum dose of acetaminophen is 4000 mg from all sources in 24 hours. Scheduled Medication Order 11/11/2023 11/12/2023 11/13/2023 dicyclomine (Bentyl) injection 20 mg (COMPLETED) 20 mg, IntraMUSCular, Once, On 11/13/23 at 0935, For 1 dose 1017 (Given - Provid er: Moira Galeano RN) famotidine (Pepcid) 20 mg in sodium chloride (PF) 0.9 % 10 mL injection (COMPLETED) 20 mg, IntraVENous, Administer over 2 Minutes, Once, On 11/13/23 at 0935, For 1 dose, IV Push over minimum of 2 minutes - Dilute with 10 mL NS 1014 (Given - Provid er: Moira Galeano RN) metoclopramide (Reglan) injection 10 mg (COMPLETED) 10 mg, IntraVENous, Once, On 11/13/23 at 0935, For 1 dose 1010 (Given - Provid er: Moira Galeano RN) morphine injection 4 mg (COMPLETED) 4 mg, IntraVENous, Once, On 11/13/23 at 0935, For 1 dose, If oral and IV narcotics ordered, use oral first and only use IV if oral is ineffective or cannot take oral. Do Not give oral and IV within 1 hour of each other unless specifically ordered. 1013 (Given - Provid er: Moira Galeano RN) sodium chloride 0.9 % bolus 1,000 mL (COMPLETED) 1,000 mL, IntraVENous, at 1,000 mL/hr, Administer over 1 Hours, Once, On 11/13/23 at 0935, For 1 dose 1009 (New Bag - Prov ider: Moira Galeano RN)1139 (Stopped - Provider: Moira Galeano RN) Continuous Medication Order 11/27/2023 11/28/2023 11/29/2023 sodium chloride 0.9 % infusion 50 mL/hr, IntraVENous, Continuous, Starting on Tue11/29/23 at 0715, Preprocedure 0711 (New Bag - Prov ider: Jemima Allen RN)0844 (Stopped - Provider: Justin Espinal RN) Scheduled Medication Order 12/27/2023 12/28/2023 12/29/2023 HYDROmorphone (Dilaudid) injection 0.5 mg (COMPLETED) 0.5 mg, IntraVENous, Once, On Bella 12/29/23 at 1340, For 1 dose 1349 (Given - Provid er: Donald Hogan RN) HYDROmorphone (Dilaudid) injection 0.5 mg (COMPLETED) 0.5 mg, IntraVENous, Once, On Bella 12/29/23 at 1445, For 1 dose, If oral and IV narcotics ordered, use oral first and only use IV if oral is ineffective or cannot take oral. Do Not give oral and IV within 1 hour of each other unless specifically ordered. 1502 (Given - Provid er: Dayanara Roth RN) promethazine (Phenergan) injection 12.5 mg (COMPLETED) 12.5 mg, IntraMUSCular, Once, On Bella 12/29/23 at 1345, For 1 dose, Only to be given as IM injection. 1353 (Given - Provid er: Donald Hogan RN) sodium chloride 0.9 % bolus 1,000 mL (COMPLETED) 1,000 mL, IntraVENous, at 1,000 mL/hr, Administer over 1 Hours, Once, On Bella 12/29/23 at 1340, For 1 dose 1348 (New Bag - Prov ider: Donald Hogan RN)1448 (Stopped - Provider: Dayanara Roth RN) Scheduled Medication Order 04/11/2024 04/12/2024 04/13/2024 acetaminophen (Ofirmev) IVPB 1,000 mg 1,000 mg, IntraVENous, at 400 mL/hr, Administer over 15 Minutes, Every 8 hours, First dose on Tue04/10/24 at 1700, Drug Name: ofimirez, Form: suspension, Length of Therapy: 2 days, How soon needed? (normally 72 hrs needed to procure): 0-24 hrs, Reason for Non-Formulary: strict NPO, SBO 0048 (New Bag - Provider: Faisal Verde RN)0103 (Stopped - Provider: Faisal Verde RN)1038 (New Bag - Provider: Viridiana Courtney RN)1053 (Stopped - Provider: Viridiana Courtney RN)1650 (New Bag - Provider: Viridiana Courtney RN)1705 (Stopped - Provider: Viridiana Courtney RN) 0134 (New Bag - Provider: Faisal Verde RN)0149 (Stopped - Provider: Faisal Verde RN)0841 (New Bag - Provider: Kelsi Mtz RN)0856 (Stopped - Provider: Kelsi Mtz, MARIE)1700 (New Bag - Provider: Kelsi Mtz, MARIE)1715 (Stopped - Provider: Heath Orozco RN) 0110 (New Bag - Provider: Heath Orozco RN)0125 (Stopped - Provider: Heath Orozco RN)0900 (New Bag - Provider: Aye Desai, MARIE)0915 (Stopped - Provider: Aye Desai, MAIRE) bisacodyl (Dulcolax) suppository 10 mg 10 mg, Rectal, Daily, First dose on Tue04/11/24 at 0900 1038 (Given - Provider: Viridiana Courtney RN) 0900 (Not Given - Provider: Kelsi Mtz RN - Reason: Patient/family refused) 0900 (Not Given - Provider: Aye Desai RN - Reason: Patient/family refused) docusate sodium (Colace) capsule 100 mg 100 mg, Oral, 2 times daily, First dose on Tue04/12/24 at 0915, Do not crush or break. 0915 (Not Given - Provider: Kelsi Mtz RN - Reason: Patient/family refused)2100 (Not Given - Provider: Heath Orozco RN - Reason: Patient/family refused) 0900 (Not Given - Provider: Aye Desai RN - Reason: Patient/family refused) enoxaparin (Lovenox) syringe 40 mg 40 mg, SubCUTAneous, Every 24 hours scheduled (Daily), First dose on Tue04/11/24 at 0900, Indication of Use: Prophylaxis-DVT/PE, Indications: Prophylaxis of Venous Thromboembolism 1038 (Given - Provider: Viridiana Courtney RN) 0840 (Given - Provider: Kelsi Mtz RN) 0742 (Given - Provider: Aye Desai, MARIE)0900 (Canceled Entry - Provider: Aye Desai RN) lactated ringers bolus 1,000 mL (COMPLETED) 1,000 mL, IntraVENous, at 1,000 mL/hr, Administer over 1 Hours, Once, On Tue04/11/24 at 1815, For 1 dose 1827 (New Bag - Provider: Marialuisa Fonseca, MARIE)1927 (Stopped - Provider: Faisal Verde RN) lidocaine (Uro-Jet) 2 % gel Topical, Once, On Tue04/10/24 at 1440, For 1 dose, Draw up and instill 0.5 mL into the nares 5 minutes before inserting tube. If oxymetazoline is also ordered, instill the Lidocaine jelly after instilling the oxymetazoline spray. methocarbamol (Robaxin) injection 1,000 mg 1,000 mg, IntraVENous, Administer over 5 Minutes, 3 times daily, First dose on Tue04/11/24 at 1845, For 3 days, Maximum dose: 3 g/day for no more than 3 consecutive days 1902 (Given - Provider: Cherie Lopez RN) 0849 (Given - Provider: Kelsi Mtz RN)1453 (Given - Provider: Kelsi Mtz RN)2056 (Given - Provider: Heath Orozco, MARIE) 0742 (Given - Provider: Aye Desai, MARIE)0900 (Canceled Entry - Provider: Aye Desai RN)1400 (Canceled Entry - Provider: Automatic Discharge Provider - Comment: Automatically canceled at discontinue of medication order) oxymetazoline (Afrin) 0.05 % nasal spray 2 spray 2 spray, Each Nostril, Once, On Tue04/10/24 at 1440, For 1 dose, Two sprays in each nares 5 minutes prior to inserting tube. polyethylene glycol (PEG) 3350 (Miralax) packet 17 g 17 g, Oral, Daily, First dose on Tue04/11/24 at 1145 1231 (Given - Provider: Viridinaa Courtney RN) 0900 (Not Given - Provider: Kelsi Mtz RN - Reason: Patient/family refused) 0900 (Not Given - Provider: Aye Desai RN - Reason: Patient/family refused) thiamine (Vitamin B1) tablet 100 mg 100 mg, Oral, Daily, First dose on Tue04/11/24 at 1530 1624 (Given - Provider: Viridiana Courtney RN) 0840 (Given - Provider: Kelsi Mtz RN) 0741 (Given - Provider: Aye Desai RN)0900 (Canceled Entry - Provider: Aye Desai RN) Continuous Medication Order 04/11/2024 04/12/2024 04/13/2024 dextrose 5 % and sodium chloride 0.45 % with KCl 20 mEq/L infusion (CANCELED) 75 mL/hr, IntraVENous, Continuous, Starting on Tue04/12/24 at 0715 0841 (New Bag - Provider: Kelsi Mtz RN) 0110 (New Bag - Provider: Heath Orozco, MARIE)0612 (Rate/Dose Verify - Provider: Heath Orozco RN)0901 (Stopped - Provider: Aye Desai RN) lactated Ringer's (LR) infusion (CANCELED) 125 mL/hr, IntraVENous, Continuous, Starting on Tue04/10/24 at 1700 0235 (New Bag - Provider: Faisal Verde RN) PRN Medication Order 04/11/2024 04/12/2024 04/13/2024 HYDROmorphone (Dilaudid) injection 0.5 mg (CANCELED) 0.5 mg, IntraVENous, Every 3 hours PRN, severe pain (7-10), Starting on Tue04/10/24 at 1656, If oral and IV narcotics ordered, use oral first and only use IV if oral is ineffective or cannot take oral. Do Not give oral and IV within 1 hour of each other unless specifically ordered. 0048 (Given - Provider: Faisal Verde RN)0353 (Given - Provider: Oriana Diaz RN)0700 (Given - Provider: Faisal Verde RN)1038 (Given - Provider: Viridiana Courtney RN)1354 (Given - Provider: Viridiana Courtney RN)1650 (Given - Provider: Viridiana Courtney RN) HYDROmorphone (Dilaudid) injection 0.5 mg(Linked Group 1) 0.5 mg, IntraVENous, Every 3 hours PRN, moderate pain (4-6), Starting on Tue04/11/24 at 1838, If oral and IV narcotics ordered, use oral first and only use IV if oral is ineffective or cannot take oral. Do Not give oral and IV within 1 hour of each other unless specifically ordered. 1956 (See Alternative - Provider: Faisal Verde RN)2255 (See Alternative - Provider: Raiza Huertas, MARIE) 0155 (See Alternative - Provider: Faisal Verde RN)0535 (See Alternative - Provider: Faisal Verde RN)0841 (Given - Provider: Kelsi Mtz, MARIE)0847 (Given - Provider: Kelsi Mtz, MARIE)1142 (See Alternative - Provider: Kelsi Mtz, MARIE)1453 (See Alternative - Provider: Kelsi Mtz, MARIE)1748 (See Alternative - Provider: Kelsi Mtz RN)2055 (See Alternative - Provider: Heath Orozco RN)234 (See Alternative - Provider: Heath Orozco RN) 0251 (See Alternative - Provider: Heath Orozco RN)0555 (See Alternative - Provider: Heath Orozco RN)0856 (See Alternative - Provider: Aye Desai, MARIE)1200 (See Alternative - Provider: Aye Desai RN) HYDROmorphone (Dilaudid) injection 1 mg(Linked Group 1) 1 mg, IntraVENous, Every 3 hours PRN, severe pain (7-10), Starting on Tue04/11/24 at 1838, If oral and IV narcotics ordered, use oral first and only use IV if oral is ineffective or cannot take oral. Do Not give oral and IV within 1 hour of each other unless specifically ordered. 1955 (Given - Provider: Faisal Verde RN)2255 (Given - Provider: Raiza Huertas RN) 0155 (Given - Provider: Faisal Verde RN)0535 (Given - Provider: Faisal Verde RN)0841 (See Alternative - Provider: Kelsi Mtz RN)0847 (See Alternative - Provider: Kelsi Mtz RN)1142 (Given - Provider: Kelsi Mtz RN)1453 (Given - Provider: Kelsi Mtz RN)174 (Given - Provider: Kelsi Mtz RN)2055 (Given - Provider: Heath Orozco RN)234 (Given - Provider: Heath Orozco RN) 0251 (Given - Provider: Heath Orozco RN)0555 (Given - Provider: Heath Orozco RN)0856 (Given - Provider: Aye Desai, MARIE)1200 (Given - Provider: Aye Desai, MARIE) naloxone (Narcan) injection 0.4 mg 0.4 mg, IntraVENous, Every 5 min PRN, opioid reversal, respiratory depression, Starting on Tue04/10/24 at 1702, +++ For RR <10, pinpoint pupils, over sedation for opioid reversal - MUST notify [employer] headgate operator provider immediately after first dose, may give IM or SQ if no IV access +++ promethazine (Phenergan) injection 12.5 mg(Linked Group 2) 12.5 mg, IntraMUSCular, Every 6 hours PRN, nausea, vomiting, Starting on Tue04/10/24 at 1853, Only to be given as IM injection. 0700 (Given - Provider: Faisal Verde RN)1354 (Given - Provider: Viridiana Courtney RN)2001 (Given - Provider: Faisal Verde, MARIE) 0354 (Given - Provider: Faisal Verde RN)1016 (Given - Provider: Kelsi Mtz RN)1623 (See Alternative - Provider: Kelsi Mtz RN)2349 (See Alternative - Provider: Heath Orozco, MARIE) 0853 (See Alternative - Provider: Aye Desai, MARIE) promethazine (Phenergan) suppository 12.5 mg(Linked Group 2) 12.5 mg, Rectal, Every 6 hours PRN, nausea, vomiting, Starting on Tue04/10/24 at 1853 0700 (See Alternative - Provider: Faisal Verde RN)1354 (See Alternative - Provider: Viridiana Courtney RN)2001 (See Alternative - Provider: Faisal Verde RN) 0354 (See Alternative - Provider: Faisal Verde RN)1016 (See Alternative - Provider: Kelsi Mtz RN)1623 (See Alternative - Provider: Kelsi Mtz, MARIE)2349 (See Alternative - Provider: Heath Orozco RN) 0853 (See Alternative - Provider: Aye Desai RN) promethazine (Phenergan) tablet 12.5 mg(Linked Group 2) 12.5 mg, Oral, Every 6 hours PRN, nausea, vomiting, Starting on Tue04/10/24 at 1853 0700 (See Alternative - Provider: Faisal Verde RN)1354 (See Alternative - Provider: Viridiana Courtney RN)2001 (See Alternative - Provider: Faisal Verde RN) 0354 (See Alternative - Provider: Faisal Verde, MARIE)1016 (See Alternative - Provider: Kelsi Mtz, MARIE)1623 (Given - Provider: Kelsi Mtz, RN)2349 (Given - Provider: Heath Orozco RN) 0853 (Given - Provider: Aye Desai, MARIE) Linked Groups Order Group 1: HYDROmorphone (Dilaudid) injection 0.5 mgJump to med 0.5 mg, IntraVENous, Every 3 hours PRN, moderate pain (4-6), Starting on Tue04/11/24 at 1838, If oral and IV narcotics ordered, use oral first and only use IV if oral is ineffective or cannot take oral. Do Not give oral and IV within 1 hour of each other unless specifically ordered. Or HYDROmorphone (Dilaudid) injection 1 mgJump to med 1 mg, IntraVENous, Every 3 hours PRN, severe pain (7-10), Starting on Tue04/11/24 at 1838, If oral and IV narcotics ordered, use oral first and only use IV if oral is ineffective or cannot take oral. Do Not give oral and IV within 1 hour of each other unless specifically ordered. Group 2: promethazine (Phenergan) tablet 12.5 mgJump to med 12.5 mg, Oral, Every 6 hours PRN, nausea, vomiting, Starting on Tue04/10/24 at 1853 Or promethazine (Phenergan) injection 12.5 mgJump to med 12.5 mg, IntraMUSCular, Every 6 hours PRN, nausea, vomiting, Starting on Tue04/10/24 at 1853, Only to be given as IM injection. Or promethazine (Phenergan) suppository 12.5 mgJump to med 12.5 mg, Rectal, Every 6 hours PRN, nausea, vomiting, Starting on Tue04/10/24 at 1853 Scheduled Medication Order 04/13/2024 04/14/2024 04/15/2024 diphenhydrAMINE (BENADryl) injection 25 mg (COMPLETED) 25 mg, IntraVENous, Once, On Tue04/15/24 at 1110, For 1 dose 1117 (Given - Provid er: Lelo Khanna RN) HYDROmorphone (Dilaudid) injection 0.5 mg (COMPLETED) 0.5 mg, IntraVENous, Once, On 04/15/24 at 1050, For 1 dose, If oral and IV narcotics ordered, use oral first and only use IV if oral is ineffective or cannot take oral. Do Not give oral and IV within 1 hour of each other unless specifically ordered. 1100 (Given - Provid er: Jacky De La Cruz RN) metoclopramide (Reglan) injection 10 mg (COMPLETED) 10 mg, IntraVENous, Once, On 04/15/24 at 1110, For 1 dose 1115 (Given - Provid er: Lelo Khanna RN) morphine injection 4 mg (COMPLETED) 4 mg, IntraVENous, Once, On 04/15/24 at 0940, For 1 dose, If oral and IV narcotics ordered, use oral first and only use IV if oral is ineffective or cannot take oral. Do Not give oral and IV within 1 hour of each other unless specifically ordered. 0956 (Given - Provid er: Jacky De La Cruz RN) oxyCODONE-acetaminophen (Percocet) 5-325 MG per tablet 1 tablet (COMPLETED) 1 tablet, Oral, Once, On 04/15/24 at 1245, For 1 dose, Maximum dose of acetaminophen is 4000 mg from all sources in 24 hours. 1246 (Given - Provid er: Lelo Khanna RN) potassium chloride CR (Klor-Con M10) ER tablet 20 mEq (COMPLETED) 20 mEq, Oral, Once, On 04/15/24 at 1110, For 1 dose, Best given with food and plenty of water to minimize gastric irritation. Do not crush or chew. 1117 (Given - Provid er: Lelo Khanna RN) potassium chloride IVPB 10 mEq (COMPLETED) 10 mEq, IntraVENous, at 100 mL/hr, Administer over 1 Hours, Once, On 04/15/24 at 1110, For 1 dose 1119 (New Bag - Prov ider: Lelo Khanna RN)1219 (Stopped - Provider: Lelo Khanna RN) promethazine (Phenergan) injection 12.5 mg (COMPLETED) 12.5 mg, IntraMUSCular, Once, On 04/15/24 at 0940, For 1 dose, Only to be given as IM injection. 0956 (Given - Provid er: Jacky De La Cruz RN) sodium chloride 0.9 % bolus 1,000 mL (COMPLETED) 1,000 mL, IntraVENous, at 1,000 mL/hr, Administer over 1 Hours, Once, On Tue04/15/24 at 0945, For 1 dose 1100 (New Bag - Prov ider: Jacky De La Cruz, MARIE)1200 (Stopped - Provider: Lelo Khanna RN) Scheduled Medication Order 04/24/2024 04/25/2024 04/26/2024 acetaminophen (Ofirmev) IVPB 1,000 mg 1,000 mg, IntraVENous, at 400 mL/hr, Administer over 15 Minutes, Every 6 hours scheduled (4 times per day), First dose on Tue04/24/24 at 0625 0807 (New Bag - Provider: Sonya Hoyos RN)0822 (Due: Stopped - Provider: Sonya Hoyos RN)1202 (New Bag - Provider: Regis Mendez RN)1217 (Stopped - Provider: Regis Mendez RN)1754 (New Bag - Provider: Regis Mendez, MARIE)1809 (Stopped - Provider: Regis Mendez RN) 0045 (New Bag - Provider: Brennon Haq RN)0100 (Stopped - Provider: Brennon Haq RN)0858 (New Bag - Provider: Magda Hart, MARIE)0913 (Stopped - Provider: Magda Hart RN)1343 (New Bag - Provider: Magda Hart RN)1358 (Stopped - Provider: Magda Hart, MARIE)2037 (New Bag - Provider: Brennon Haq, MARIE)2052 (Stopped - Provider: Brennon Haq, MARIE) 0120 (New Bag - Provider: Brennon Haq, MARIE)0135 (Stopped - Provider: Brennon Haq, MARIE)0834 (New Bag - Provider: Regis Mendez, MARIE)0849 (Stopped - Provider: Regis Mendez, MARIE)1400 (Canceled Entry - Provider: Automatic Discharge Provider - Comment: Automatically canceled at discontinue of medication order) bisacodyl (Dulcolax) suppository 10 mg 10 mg, Rectal, Daily, First dose on Tue04/24/24 at 0900 2020 (Given - Provider: Brennon Haq RN - Comment: Due) 0900 (Not Given - Provider: Magda Hart RN - Reason: Other - Comment: pt said was given around 0500 today) diatrizoate meglumine-sodium (Gastrografin) 66-10 % solution 120 mL (COMPLETED) 120 mL, Oral, Once, On Tue04/25/24 at 1245, For 1 dose 1245 (Given - Provider: Mushtaq Lazcano, RT (R)) enoxaparin (Lovenox) syringe 30 mg 30 mg, SubCUTAneous, Every 12 hours scheduled (2 times per day), First dose on Tue04/24/24 at 0900, Indication of Use: Prophylaxis-DVT/PE 1042 (Given - Provider: Regis Mendez, MARIE)2020 (Given - Provider: Brennon Haq RN) 0859 (Given - Provider: Magda Hart, MARIE)2036 (Given - Provider: Brennon Haq RN) 0834 (Given - Provider: Regis Mendez, MARIE) haloperidol lactate (Haldol) injection 2 mg (COMPLETED) 2 mg, IntraMUSCular, Once, On Tue04/24/24 at 0355, For 1 dose, IM route of administration preferred. Because of the risk of TdP and QT prolongation, ECG monitoring is recommended if haloperidol is given IV 0358 (Given - Provider: Jennifer Newberry RN) HYDROmorphone (Dilaudid) injection 0.5 mg (COMPLETED) 0.5 mg, IntraVENous, Once, On Tue04/24/24 at 0225, For 1 dose, If oral and IV narcotics ordered, use oral first and only use IV if oral is ineffective or cannot take oral. Do Not give oral and IV within 1 hour of each other unless specifically ordered. 0223 (Given - Provider: Jim Hendricks, EMT) HYDROmorphone (Dilaudid) injection 0.5 mg (COMPLETED) 0.5 mg, IntraVENous, Once, On Tue04/24/24 at 0555, For 1 dose, If oral and IV narcotics ordered, use oral first and only use IV if oral is ineffective or cannot take oral. Do Not give oral and IV within 1 hour of each other unless specifically ordered. 0630 (Given - Provider: Tio Dawson RN) HYDROmorphone (Dilaudid) injection 0.5 mg (COMPLETED) 0.5 mg, IntraVENous, Once, On Tue04/24/24 at 1645, For 1 dose, If oral and IV narcotics ordered, use oral first and only use IV if oral is ineffective or cannot take oral. Do Not give oral and IV within 1 hour of each other unless specifically ordered. 164 (Given - Provider: Regis Mendez, MARIE) lidocaine (Uro-Jet) 2 % gel Topical, Once, On Tue04/24/24 at 0625, For 1 dose, Draw up and instill 0.5 mL into the nares 5 minutes before inserting tube. If oxymetazoline is also ordered, instill the Lidocaine jelly after instilling the oxymetazoline spray. 0625 (Canceled Entry - Provider: Automatic Discharge Provider - Comment: Automatically canceled at discontinue of medication order) methocarbamol (Robaxin) injection 1,000 mg (CANCELED) 1,000 mg, IntraVENous, Administer over 5 Minutes, Every 8 hours, First dose (after last modification) on Tue04/24/24 at 1645, Maximum dose: 3 g/day for no more than 3 consecutive days 1649 (Given - Provider: Regis Mendez RN) 0045 (Given - Provider: Brennon Haq, MARIE)0858 (Given - Provider: Magda Hart, MARIE)1657 (Given - Provider: Magda Hart, MARIE)2345 (Given - Provider: Brennon Haq, MARIE) 0834 (Given - Provider: Regis Mendez, MARIE) methocarbamol (Robaxin) tablet 500 mg 500 mg, Oral, Every 6 hours scheduled (4 times per day), First dose on Tue04/26/24 at 1200 1253 (Given - Provider: Regis Mendez, MARIE) metoclopramide (Reglan) injection 10 mg (COMPLETED) 10 mg, IntraVENous, Once, On Tue04/24/24 at 0130, For 1 dose 0152 (Given - Provider: Jennifer Newberry RN) morphine injection 4 mg (COMPLETED) 4 mg, IntraVENous, Once, On Tue04/24/24 at 0130, For 1 dose, If oral and IV narcotics ordered, use oral first and only use IV if oral is ineffective or cannot take oral. Do Not give oral and IV within 1 hour of each other unless specifically ordered. 0152 (Given - Provider: Jennifer Newberry RN) oxymetazoline (Afrin) 0.05 % nasal spray 2 spray 2 spray, Each Nostril, Once, On Tue04/24/24 at 0625, For 1 dose, Two sprays in each nares 5 minutes prior to inserting tube. 0625 (Canceled Entry - Provider: Automatic Discharge Provider - Comment: Automatically canceled at discontinue of medication order) promethazine (Phenergan) injection 12.5 mg (COMPLETED) 12.5 mg, IntraMUSCular, Once, On Tue04/24/24 at 0615, For 1 dose, Only to be given as IM injection. 0632 (Given - Provider: Tio Dawson RN) sodium chloride 0.9 % bolus 1,000 mL (COMPLETED) 1,000 mL, IntraVENous, at 1,000 mL/hr, Administer over 1 Hours, Once, On Tue04/24/24 at 0130, For 1 dose 0153 (New Bag - Provider: Jennifer Newberry RN)0355 (Stopped - Provider: Jennifer Newberry RN) Continuous Medication Order 04/24/2024 04/25/2024 04/26/2024 lactated Ringer's (LR) infusion (CANCELED) 100 mL/hr, IntraVENous, Continuous, Starting on Tue04/24/24 at 0625 0637 (New Bag - Provider: Tio Dawson RN) 0138 (New Bag - Provider: Brennon Haq, RN)1343 (New Bag - Provider: Magda Hart RN) 0042 (New Bag - Provider: Brennon Haq, MARIE) PRN Medication Order 04/24/2024 04/25/2024 04/26/2024 HYDROmorphone (Dilaudid) injection 0.5 mg (CANCELED)(Linked Group 1) 0.5 mg, IntraVENous, Every 3 hours PRN, severe pain (7-10), Starting on Tue04/24/24 at 0620, If oral and IV narcotics ordered, use oral first and only use IV if oral is ineffective or cannot take oral. Do Not give oral and IV within 1 hour of each other unless specifically ordered. 0946 (Given - Provider: Regis Mendez RN)1251 (Given - Provider: Regis Mendez RN)1554 (Given - Provider: Regis Mendez RN) HYDROmorphone (Dilaudid) injection 0.5 mg (CANCELED) 0.5 mg, IntraVENous, Every 3 hours PRN, moderate pain (4-6), Starting on Tue04/24/24 at 1630, If oral and IV narcotics ordered, use oral first and only use IV if oral is ineffective or cannot take oral. Do Not give oral and IV within 1 hour of each other unless specifically ordered. 193 (See Alternative - Provider: Regis Mendez RN)223 (See Alternative - Provider: Brennon Haq RN) 0138 (See Alternative - Provider: Brennon Haq RN)0524 (See Alternative - Provider: aJnene Jung RN)0858 (See Alternative - Provider: Magda Hart RN)1343 (See Alternative - Provider: Magda Hart RN)1657 (See Alternative - Provider: Magda Hart RN)2037 (See Alternative - Provider: Brennon Haq RN)2343 (See Alternative - Provider: Brennon Haq RN) 0243 (See Alternative - Provider: Brennon Haq RN)0557 (See Alternative - Provider: Brennon Haq RN)1108 (Given - Provider: Regis Mendez RN) HYDROmorphone (Dilaudid) injection 1 mg (CANCELED) 1 mg, IntraVENous, Every 3 hours PRN, severe pain (7-10), Starting on Tue04/24/24 at 1630, If oral and IV narcotics ordered, use oral first and only use IV if oral is ineffective or cannot take oral. Do Not give oral and IV within 1 hour of each other unless specifically ordered. 193 (Given - Provider: Regis Mendez RN)2232 (Given - Provider: Brennon Haq RN) 0138 (Given - Provider: Brennon Haq RN)0524 (Given - Provider: Janene Jung RN)0858 (Given - Provider: Magda Hart, MARIE)1343 (Given - Provider: Magda Hart, MARIE)1657 (Given - Provider: Magda Hart, RN)2037 (Given - Provider: Brennon Haq RN)2343 (Given - Provider: Brennon Haq RN) 0243 (Given - Provider: Brennon Haq RN)0557 (Given - Provider: Brennon Haq RN)1108 (See Alternative - Provider: Reigs Mendez RN) naloxone (Narcan) injection 0.4 mg 0.4 mg, IntraVENous, Every 5 min PRN, opioid reversal, respiratory depression, Starting on Tue04/24/24 at 0633, +++ For RR <10, pinpoint pupils, over sedation for opioid reversal - MUST notify [employer] headgate operator provider immediately after first dose, may give IM or SQ if no IV access +++ oxyCODONE (Roxicodone) immediate release tablet 5 mg 5 mg, Oral, Every 4 hours PRN, severe pain (7-10), moderate pain (4-6), Starting on Bella 04/26/24 at 1118 1202 (Given - Provider: Regis Mendez, MARIE) promethazine (Phenergan) injection 12.5 mg(Linked Group 2) 12.5 mg, IntraMUSCular, Every 6 hours PRN, nausea, vomiting, Starting on Tue04/24/24 at 0620, Only to be given as IM injection. 1554 (Given - Provider: Regis Mendez RN)2217 (Given - Provider: Brennon Haq RN) 0814 (Given - Provider: Brennon Haq RN)1445 (Given - Provider: Magda Hart RN) 0557 (Given - Provider: Brennon Haq RN)1102 (See Alternative - Provider: Regis Mendez RN) promethazine (Phenergan) suppository 12.5 mg(Linked Group 2) 12.5 mg, Rectal, Every 6 hours PRN, nausea, vomiting, Starting on Tue04/24/24 at 0620 1554 (See Alternative - Provider: Regis Mendez RN)2217 (See Alternative - Provider: Brennon Haq, RN) 0814 (See Alternative - Provider: Brennon Haq, MARIE)1445 (See Alternative - Provider: Magda Hart RN) 0557 (See Alternative - Provider: Brennon Haq, RN)1102 (See Alternative - Provider: Regis Mendez, RN) promethazine (Phenergan) tablet 12.5 mg(Linked Group 2) 12.5 mg, Oral, Every 6 hours PRN, nausea, vomiting, Starting on Tue04/24/24 at 0620 1554 (See Alternative - Provider: Regis Mendez RN)2217 (See Alternative - Provider: Brennon Haq RN) 0814 (See Alternative - Provider: Brennon Haq RN)1445 (See Alternative - Provider: Magda Hart RN) 0557 (See Alternative - Provider: Brennon Haq RN)1102 (Given - Provider: Regis Mendez RN) Linked Groups Order Group 1: HYDROmorphone (Dilaudid) injection 0.25 mg (CANCELED) 0.25 mg, IntraVENous, Every 3 hours PRN, moderate pain (4-6), Starting on Tue04/24/24 at 0620, If oral and IV narcotics ordered, use oral first and only use IV if oral is ineffective or cannot take oral. Do Not give oral and IV within 1 hour of each other unless specifically ordered. Or HYDROmorphone (Dilaudid) injection 0.5 mg (CANCELED)Jump to med 0.5 mg, IntraVENous, Every 3 hours PRN, severe pain (7-10), Starting on Tue04/24/24 at 0620, If oral and IV narcotics ordered, use oral first and only use IV if oral is ineffective or cannot take oral. Do Not give oral and IV within 1 hour of each other unless specifically ordered. Group 2: promethazine (Phenergan) tablet 12.5 mgJump to med 12.5 mg, Oral, Every 6 hours PRN, nausea, vomiting, Starting on Tue04/24/24 at 0620 Or promethazine (Phenergan) injection 12.5 mgJump to med 12.5 mg, IntraMUSCular, Every 6 hours PRN, nausea, vomiting, Starting on Tue04/24/24 at 0620, Only to be given as IM injection. Or promethazine (Phenergan) suppository 12.5 mgJump to med 12.5 mg, Rectal, Every 6 hours PRN, nausea, vomiting, Starting on Tue04/24/24 at 0620 Scheduled Medication Order 2024 07/07/2024 07/08/2024 HYDROmorphone (Dilaudid) injection 1 mg (COMPLETED) 1 mg, IntraVENous, Once, On 07/08/24 at 0940, For 1 dose, If oral and IV narcotics ordered, use oral first and only use IV if oral is ineffective or cannot take oral. Do Not give oral and IV within 1 hour of each other unless specifically ordered. 41 (Given - Provid er: Donald Hogan RN) promethazine (Phenergan) injection 25 mg (COMPLETED) 25 mg, IntraMUSCular, Once, On Tue07/08/24 at 0840, For 1 dose, Only to be given as IM injection. 0852 (Given - Provid er: Monse Shanks RN) PRN Medication Order 2024 07/07/2024 07/08/2024 HYDROmorphone (Dilaudid) injection 1 mg 1 mg, IntraVENous, Every 2 hour PRN, moderate pain (4-6), severe pain (7-10), Starting on Tue07/08/24 at 0837, For 3 doses, If oral and IV narcotics ordered, use oral first and only use IV if oral is ineffective or cannot take oral. Do Not give oral and IV within 1 hour of each other unless specifically ordered. 0853 (Given - Provid er: Monse Shanks RN)1045 (Given - Provider: Sabra Rogers, MARIE) Scheduled Medication Order 08/11/2024 08/12/2024 08/13/2024 acetaminophen (Tylenol) tablet 1,000 mg (CANCELED) 1,000 mg, Oral, Every 6 hours, First dose (after last modification) on Tue08/08/24 at 0800, Phase II/On Unit 0223 (Given - Provider: Kerrie Diallo RN)0911 (Given - Provider: Macailia Cisco, RN)1543 (Given - Provider: Amy Cervantes RN)2027 (Given - Provider: Gui Sy, RN) 024 (Given - Provider: Gui Sy, RN)0800 (Not Given - Provider: Amy Cervantes RN - Reason: Other - Comment: overdoes)1438 (Given - Provider: Amy Cervantes RN)2001 (Given - Provider: Gui Sy, RN) 020 (Given - Provider: Gui Sy, RN) bisacodyl (Dulcolax) suppository 10 mg 10 mg, Rectal, Daily, First dose on Bella 08/09/24 at 1430 0900 (Not Given - Provider: Amy Cervantes RN - Reason: Patient/family refused) 0900 (Not Given - Provider: Amy Cervantes RN - Reason: Patient/family refused) 1050 (Given - Provider: Ruth Streeter, MARIE) enoxaparin (Lovenox) syringe 40 mg 40 mg, SubCUTAneous, Every 24 hours scheduled (Daily), First dose on Tue08/08/24 at 0900, Phase II/On Unit, Indication of Use: Prophylaxis-DVT/PE, Indications: Prophylaxis of Venous Thromboembolism 0911 (Given - Provider: Amy Cervantes RN) 0907 (Given - Provider: Amy Cervantes RN) 1053 (Given - Provider: Ruth Streeter, MARIE) famotidine (Pepcid) tablet 20 mg 20 mg, Oral, Once, On Tue08/08/24 at 0230, For 1 dose, Preprocedure FLUoxetine (PROzac) capsule 20 mg 20 mg, Oral, Daily, First dose on Tue08/08/24 at 0800, Phase II/On Unit 0911 (Given - Provider: Amy Cervantes RN) 0907 (Given - Provider: Amy Cervantes RN) 1050 (Given - Provider: Ruth Streeter, MARIE) gabapentin (Neurontin) capsule 300 mg (CANCELED) 300 mg, Oral, Every 8 hours scheduled (3 times per day), First dose (after last modification) on Tue08/08/24 at 1400, Phase II/On Unit 0600 (Given - Provider: Kerrie Diallo RN)1543 (Given - Provider: Macailia Cisco, RN)2115 (Given - Provider: Gui Sy RN) 0503 (Given - Provider: Gui Sy, RN)1438 (Given - Provider: Amy Cervantes RN)2200 (Given - Provider: Gui Sy RN) 0603 (Given - Provider: Gui Sy RN) HYDROmorphone (Dilaudid) injection 0.25 mg (COMPLETED) 0.25 mg, IntraVENous, Once, On Tue08/11/24 at 0230, For 1 dose, If oral and IV narcotics ordered, use oral first and only use IV if oral is ineffective or cannot take oral. Do Not give oral and IV within 1 hour of each other unless specifically ordered. 0233 (Given - Provider: Kerrie Diallo RN) Lidocaine 4 % patch 2 patch 2 patch, TransDERmal, Administer over 12 Hours, Daily, First dose on Tue08/10/24 at 1445, Apply patch to either side of incision. Patch may remain in place for up to 12 hours in any 24 hour period. 0900 (Not Given - Provider: Amy Cervantes RN - Reason: Patient/family refused) 0900 (Not Given - Provider: Amy Cervantes RN - Reason: Patient/family refused) 1051 (Medication Applied - Provider: Ruth Streeter, RN)1718 (Due: Medication Removed - Provider: Automatic Discharge Provider - Comment: Time automatically adjusted from order being discontinued) magnesium sulfate IVPB 4,000 mg (COMPLETED) 4,000 mg, IntraVENous, at 25 mL/hr, Administer over 4 Hours, Once, On Tue08/13/24 at 0615, For 1 dose, Recommended infusion rate not to exceed 1,000 mg (milligrams) per hour. 0634 (New Bag - Provider: Gui Sy RN)1034 (Stopped - Provider: Ruth Streeter, RN) magnesium sulfate IVPB premix 2,000 mg (COMPLETED) 2,000 mg, IntraVENous, at 25 mL/hr, Administer over 2 Hours, Once, On Tue08/12/24 at 0600, For 1 dose, Recommended infusion rate not to exceed 1,000 mg (milligrams) per hour. 0638 (New Bag - Provider: Gui Sy RN)0838 (Stopped - Provider: Amy Cervantes RN) methocarbamol (Robaxin) injection 1,000 mg (CANCELED) 1,000 mg, IntraVENous, Administer over 5 Minutes, Every 8 hours, First dose (after last modification) on Tue08/10/24 at 0700, Maximum dose: 3 g/day for no more than 3 consecutive days 0415 (Given - Provider: Kerrie Diallo RN - Comment: No IV access) methocarbamol (Robaxin) tablet 1,500 mg 1,500 mg, Oral, Every 8 hours scheduled (3 times per day), First dose on Tue08/11/24 at 1400 1235 (Given - Provider: Amy Cervantes RN)2115 (Given - Provider: Gui Sy, RN) 0503 (Given - Provider: Gui Sy, RN)1438 (Given - Provider: Amy Cervantes RN)2200 (Given - Provider: Gui Sy RN) 0603 (Given - Provider: Gui Sy RN)1307 (Given - Provider: Ruth Streeter RN) oxyCODONE-acetaminophen (Percocet) 5-325 MG per tablet 1 tablet (COMPLETED) 1 tablet, Oral, Once, On Tue08/13/24 at 1015, For 1 dose, Maximum dose of acetaminophen is 4000 mg from all sources in 24 hours. 1051 (Given - Provider: Ruth Streeter RN) polyethylene glycol (PEG) 3350 (Miralax) packet 17 g 17 g, Oral, Daily, First dose on Bella 08/09/24 at 1430 0900 (Not Given - Provider: Amy Cervantes RN - Reason: Patient/family refused) 0900 (Not Given - Provider: Amy Cervantes RN - Reason: Patient/family refused) 0900 (Not Given - Provider: Ruth Streeter RN - Reason: Patient/family refused) pregabalin (Lyrica) capsule 25 mg 25 mg, Oral, 2 times daily, First dose on Tue08/13/24 at 1015 1051 (Given - Provider: Ruth Streeter RN) sodium chloride 0.9% (NS) flush 10 mL 10 mL, IntraVENous, Every 12 hours scheduled (2 times per day), First dose on Tue08/08/24 at 0900, Phase II/On Unit 0900 (Given - Provider: Amy Cervantes RN)2028 (Given - Provider: Gui Sy RN) 09 (Given - Provider: Amy Cervantes RN)220 (Given - Provider: Gui Sy RN) 09 (Canceled Entry - Provider: Automatic Discharge Provider - Comment: Automatically canceled at discontinue of medication order) PRN Medication Order 08/11/2024 08/12/2024 08/13/2024 ALPRAZolam (Xanax) tablet 0.5 mg 0.5 mg, Oral, 2 times daily PRN, anxiety, Starting on Tue08/10/24 at 0221 1052 (Given - Provider: Amy Cervantes RN) 1028 (Given - Provider: Amy Cervantes RN)2001 (Given - Provider: Gui yS RN) 0456 (Given - Provider: Gui Sy RN)1540 (Given - Provider: Ruth Streeter RN) HYDROmorphone (Dilaudid) injection 0.5 mg (CANCELED) 0.5 mg, IntraVENous, Every 4 hours PRN, severe pain (7-10), Starting on Tue08/10/24 at 0654, If oral and IV narcotics ordered, use oral first and only use IV if oral is ineffective or cannot take oral. Do Not give oral and IV within 1 hour of each other unless specifically ordered. 0222 (Given - Provider: Kerrie Diallo RN)0625 (Given - Provider: Kerrie Diallo RN)1049 (Given - Provider: Amy Cervantes RN)1543 (Given - Provider: Amy Cervantes RN)2027 (Given - Provider: Gui Sy RN) 003 (Given - Provider: Gui Sy RN)0502 (Given - Provider: Gui Sy, RN)0907 (Given - Provider: Amy Cervantes RN) HYDROmorphone (Dilaudid) injection 1 mg (CANCELED)(Linked Group 1) 1 mg, IntraVENous, Every 3 hours PRN, severe pain (7-10), Starting on Tue08/12/24 at 1021, If oral and IV narcotics ordered, use oral first and only use IV if oral is ineffective or cannot take oral. Do Not give oral and IV within 1 hour of each other unless specifically ordered., On hold since Tue08/13/2024 at 0629 until manually unheld 1203 (Given - Provider: Amy Cervantes RN)1605 (Given - Provider: Amy Cervantes RN)2001 (Given - Provider: Gui Sy RN)2300 (Given - Provider: Gui Sy RN) 0201 (Given - Provider: Gui Sy RN)0603 (Given - Provider: Gui Sy RN)0629 (Held by provider - Provider: Scot Casanova MD - Reason: Other)0750 (Unheld by provider - Provider: Rosario Aguilar, CHEMICAL OPERATIONS SPECIALIST - WIRE INSERTER) HYDROmorphone (Dilaudid) tablet 4 mg(Linked Group 2) 4 mg, Oral, Every 6 hours PRN, severe break through pain. pt takes percocet 6x daily as outpatient. dilaudid is for breakthrough pain as needed between percocet. thank you., Starting on Tue08/13/24 at 0747 1307 (Given - Provider: Ruth Streeter RN) HYDROmorphone (Dilaudid) tablet 6 mg (CANCELED) 6 mg, Oral, Every 4 hours PRN, severe pain (7-10), Starting on Tue08/10/24 at 0653 0335 (Given - Provider: Kerrie Diallo RN)0746 (Given - Provider: Kerrie Diallo RN)1235 (Given - Provider: Amy Cervantes RN)1910 (Given - Provider: Amy Cervantes RN)2308 (Given - Provider: Gui Sy RN) 0317 (Given - Provider: Gui Sy RN)0706 (Given - Provider: Gui Sy, RN)1106 (Given - Provider: Amy Cervantes, RN)1509 (Given - Provider: Amy Cervantes, RN)1904 (Given - Provider: Amy Cervantes RN) 0055 (Given - Provider: Gui Sy RN)0456 (Given - Provider: Gui Sy, RN) ipratropium-albuterol (Duo-Neb) 0.5-2.5 mg/3 mL nebulizer solution 3 mL 3 mL, Nebulization, 3 times daily PRN, wheezing, Starting on Bella 08/09/24 at 1030, Phase II/On Unit naloxone (Narcan) 0.4 mg in 0.9% sodium chloride 10 mL syringe IntraVENous, PRN, opioid reversal, Starting on 08/08/24 at 0637, PRN if respiratory rate is less than 6/min and patient is difficult to arouse then notify physician STAT. Mix 9 mL of sodium chloride 0.9% with 0.4 mg (1 mL) of naloxone (NARCAN) in 10 mL syringe. (Note: dilution is 0.04 mg/mL) Give 0.08 mg (2 mL of special dilution), slow IV push, repeat up to 0.4 mg (10 mL) or until patient is responsive to physical stimulation and respiratory rate is equal to or greater than 6 breaths/min. Continue to observe, if no response within 3 minutes of administration of 0.4 mg (10 mL) total, repeat dose (0.4 mg as administered previously). oxyCODONE-acetaminophen (Percocet) 5-325 MG per tablet 1 tablet (CANCELED) 1 tablet, Oral, Every 4 hours PRN, moderate pain (4-6), severe pain (7-10), Starting on Tue08/13/24 at 0747, Maximum dose of acetaminophen is 4000 mg from all sources in 24 hours. 0816 (Given - Provider: Ruth Streeter RN) oxyCODONE-acetaminophen (Percocet) 5-325 MG per tablet 1 tablet(Linked Group 3) 1 tablet, Oral, Every 4 hours PRN, moderate pain (4-6), Starting on Tue08/13/24 at 1004, Maximum dose of acetaminophen is 4000 mg from all sources in 24 hours. 1540 (See Alternative - Provider: Ruth Streeter RN) oxyCODONE-acetaminophen (Percocet) 5-325 MG per tablet 2 tablet(Linked Group 3) 2 tablet, Oral, Every 4 hours PRN, severe pain (7-10), Starting on Tue08/13/24 at 1004, Maximum dose of acetaminophen is 4000 mg from all sources in 24 hours. 1540 (Given - Provider: Ruth Streeter RN) promethazine (Phenergan) injection 25 mg(Linked Group 4) 25 mg, IntraMUSCular, Every 4 hours PRN, nausea, vomiting, Starting on Tue08/08/24 at 0216, Phase II/On Unit, 1st Line. Give IM if patient is unable to take orally or receive rectally. Not for IV administration. If inadequate response within 60 minutes, proceed to next-line agent or contact provider if no further options ordered. 0750 (Given - Provider: Kerrie Diallo RN)1235 (See Alternative - Provider: Amy Cervantes RN)2027 (Given - Provider: Gui Sy RN) 050 (Given - Provider: Gui Sy RN)161 (Given - Provider: Amy Cervantes RN)2001 (Given - Provider: Gui Sy RN) 54 (Given - Provider: Gui Sy RN)456 (Given - Provider: Gui Sy RN) promethazine (Phenergan) suppository 25 mg(Linked Group 4) 25 mg, Rectal, Every 12 hours PRN, nausea, vomiting, Starting on Tue08/08/24 at 0216, Phase II/On Unit, 1st Line. Give LA if patient is unable to take orally. If inadequate response within 60 minutes, proceed to next-line agent or contact provider if no further options ordered. 0750 (See Alternative - Provider: Kerrie Diallo RN)1235 (See Alternative - Provider: Amy Cervantes RN)2027 (See Alternative - Provider: Gui Sy RN) 050 (See Alternative - Provider: Gui Sy RN)161 (See Alternative - Provider: Amy Cervantes RN)2001 (See Alternative - Provider: Gui Sy RN) 54 (See Alternative - Provider: Gui Sy RN)456 (See Alternative - Provider: Gui Sy, RN) promethazine (Phenergan) tablet 25 mg(Linked Group 4) 25 mg, Oral, Every 6 hours PRN, nausea, vomiting, Starting on Tue08/08/24 at 0216, Phase II/On Unit, 1st Line. If inadequate response within 60 minutes, proceed to next-line agent or contact provider if no further options ordered. 0750 (See Alternative - Provider: Kerrie Diallo RN)1235 (Given - Provider: Amy Cervantes RN)2027 (See Alternative - Provider: Gui Sy, MARIE) 0508 (See Alternative - Provider: Gui Sy, RN)1613 (See Alternative - Provider: Amy Cervantes RN)2001 (See Alternative - Provider: Gui Sy, MARIE) 0055 (See Alternative - Provider: Gui Sy, RN)0457 (See Alternative - Provider: Gui Sy, RN) sodium chloride 0.9 % infusion 5-250 mL/hr, IntraVENous, PRN, if patient receiving piggyback infusions and maintenance fluids are not ordered OR KVO fluids to protect IV site / prevent frequent line interruptions/ long duration, Starting on Tue08/08/24 at 0216, Phase II/On Unit, For piggyback infusion, administer at same rate as piggyback for a total of 25 mL. Enter 25 mL into dose field and piggyback rate into rate field of order. If piggyback is infusing at a rate less than 100 mL/hr, enter 25 mL into dose field and 100 mL/hr into rate field of order. For KVO fluids, enter rate of 20 mL/hr or less into rate field of order. sodium chloride 0.9% (NS) flush 10 mL 10 mL, IntraVENous, PRN, line care, Starting on Tue08/08/24 at 0216, Phase II/On Unit, After every IV line use Linked Groups Order Group 1: HYDROmorphone (Dilaudid) injection 0.5 mg (CANCELED) 0.5 mg, IntraVENous, Every 3 hours PRN, moderate pain (4-6), Starting on 08/12/24 at 1021, If oral and IV narcotics ordered, use oral first and only use IV if oral is ineffective or cannot take oral. Do Not give oral and IV within 1 hour of each other unless specifically ordered., On hold since Tue08/13/2024 at 0629 until manually unheld Or HYDROmorphone (Dilaudid) injection 1 mg (CANCELED)Jump to med 1 mg, IntraVENous, Every 3 hours PRN, severe pain (7-10), Starting on Tue08/12/24 at 1021, If oral and IV narcotics ordered, use oral first and only use IV if oral is ineffective or cannot take oral. Do Not give oral and IV within 1 hour of each other unless specifically ordered., On hold since Tue08/13/2024 at 0629 until manually unheld Group 2: HYDROmorphone (Dilaudid) tablet 4 mgJump to med 4 mg, Oral, Every 6 hours PRN, severe break through pain. pt takes percocet 6x daily as outpatient. dilaudid is for breakthrough pain as needed between percocet. thank you., Starting on Tue08/13/24 at 0747 Group 3: oxyCODONE-acetaminophen (Percocet) 5-325 MG per tablet 1 tabletJump to med 1 tablet, Oral, Every 4 hours PRN, moderate pain (4-6), Starting on Tue08/13/24 at 1004, Maximum dose of acetaminophen is 4000 mg from all sources in 24 hours. Or oxyCODONE-acetaminophen (Percocet) 5-325 MG per tablet 2 tabletJump to med 2 tablet, Oral, Every 4 hours PRN, severe pain (7-10), Starting on Tue08/13/24 at 1004, Maximum dose of acetaminophen is 4000 mg from all sources in 24 hours. Group 4: promethazine (Phenergan) tablet 25 mgJump to med 25 mg, Oral, Every 6 hours PRN, nausea, vomiting, Starting on Tue08/08/24 at 0216, Phase II/On Unit, 1st Line. If inadequate response within 60 minutes, proceed to next-line agent or contact provider if no further options ordered. Or promethazine (Phenergan) suppository 25 mgJump to med 25 mg, Rectal, Every 12 hours PRN, nausea, vomiting, Starting on Tue08/08/24 at 0216, Phase II/On Unit, 1st Line. Give LA if patient is unable to take orally. If inadequate response within 60 minutes, proceed to next-line agent or contact provider if no further options ordered. Or promethazine (Phenergan) injection 25 mgJump to med 25 mg, IntraMUSCular, Every 4 hours PRN, nausea, vomiting, Starting on Tue08/08/24 at 0216, Phase II/On Unit, 1st Line. Give IM if patient is unable to take orally or receive rectally. Not for IV administration. If inadequate response within 60 minutes, proceed to next-line agent or contact provider if no further options ordered. Scheduled Medication Order 08/31/2024 09/01/2024 09/02/2024 HYDROmorphone (Dilaudid) injection 0.5 mg (COMPLETED) 0.5 mg, IntraVENous, Once, On 09/02/24 at 1220, For 1 dose, If oral and IV narcotics ordered, use oral first and only use IV if oral is ineffective or cannot take oral. Do Not give oral and IV within 1 hour of each other unless specifically ordered. 1227 (Given - Provid er: Jacky De La Cruz RN) morphine injection 4 mg (COMPLETED) 4 mg, IntraVENous, Once, On 09/02/24 at 1050, For 1 dose, If oral and IV narcotics ordered, use oral first and only use IV if oral is ineffective or cannot take oral. Do Not give oral and IV within 1 hour of each other unless specifically ordered. 1121 (Given - Provid er: Jacky De La Cruz RN) sodium chloride 0.9 % bolus 1,000 mL (COMPLETED) 1,000 mL, IntraVENous, at 1,000 mL/hr, Administer over 1 Hours, Once, On 09/02/24 at 1050, For 1 dose 1120 (New Bag - Prov ider: Jacky De La Cruz RN)1352 (Stopped - Provider: Michelle Lew RN) PRN Medication Order 08/31/2024 09/01/2024 09/02/2024 prochlorperazine (Compazine) injection 10 mg 10 mg, IntraVENous, Every 6 hours PRN, nausea, vomiting, Starting on 09/02/24 at 1048, Give IV if patient is unable to take orally. Give IM if patient is unable to take orally and does not have IV access. 1119 (Given - Provid er: Jacky De La Cruz RN) Scheduled Medication Order 11/21/2024 11/22/2024 11/23/2024 HYDROmorphone (Dilaudid) injection 0.5 mg (COMPLETED) 0.5 mg, IntraVENous, Once, On Tue11/23/24 at 0740, For 1 dose 0813 (Given - Provid er: Dalton Arrieta, EMT) HYDROmorphone (Dilaudid) injection 1 mg (COMPLETED) 1 mg, IntraVENous, Once, On Tue11/23/24 at 0845, For 1 dose, If oral and injectable narcotics ordered, use oral first and only use injectable if oral is ineffective or cannot take oral. Do Not give oral and injectable within 1 hour of each other unless specifically ordered. 0843 (Given - Provid er: Usman Pinzon RN) HYDROmorphone (Dilaudid) injection 1 mg (COMPLETED) 1 mg, IntraVENous, Once, On Tue11/23/24 at 0955, For 1 dose, If oral and injectable narcotics ordered, use oral first and only use injectable if oral is ineffective or cannot take oral. Do Not give oral and injectable within 1 hour of each other unless specifically ordered. 1005 (Given - Provid er: Radha Smith RN) oxyCODONE-acetaminophen (Percocet) 5-325 MG per tablet 1 tablet (COMPLETED) 1 tablet, Oral, Once, On Tue11/23/24 at 1230, For 1 dose, Maximum dose of acetaminophen is 4000 mg from all sources in 24 hours. 1226 (Given - Provid er: Radha Smith RN) promethazine (Phenergan) injection 12.5 mg (COMPLETED) 12.5 mg, IntraMUSCular, Once, On Tue11/23/24 at 0740, For 1 dose, Only to be given as IM injection. 0816 (Given - Provid er: Usman Pinzon RN) PRN Medication Order 11/21/2024 11/22/2024 11/23/2024 iopamidol (Isovue-370) 76 % injection 75 mL (COMPLETED) 75 mL, IntraVENous, IMG once PRN, contrast, Starting on Tue11/23/24 at 0839, For 1 dose 0840 (Given - Provid er: Jose Rivera, RT (R)(CT)) Scheduled Medication Order 12/23/2024 12/24/2024 12/25/2024 HYDROmorphone (Dilaudid) injection 1 mg (COMPLETED) 1 mg, IntraVENous, Once, On Tue12/25/24 at 1840, For 1 dose, If oral and injectable narcotics ordered, use oral first and only use injectable if oral is ineffective or cannot take oral. Do Not give oral and injectable within 1 hour of each other unless specifically ordered. 1846 (Given - Provid er: Sabra Rogers RN) metoclopramide (Reglan) injection 10 mg (COMPLETED) 10 mg, IntraVENous, Once, On Tue12/25/24 at 1705, For 1 dose 171 (Given - Provid er: Emily Escamilla RN) morphine injection 4 mg (COMPLETED) 4 mg, IntraVENous, Once, On Tue12/25/24 at 1705, For 1 dose, If oral and injectable narcotics ordered, use oral first and only use injectable if oral is ineffective or cannot take oral. Do Not give oral and injectable within 1 hour of each other unless specifically ordered. 1718 (Given - Provid er: Emily Escamilla RN) morphine injection 4 mg (COMPLETED) 4 mg, IntraVENous, Once, On Tue12/25/24 at 1745, For 1 dose, If oral and IV narcotics ordered, use oral first and only use IV if oral is ineffective or cannot take oral. Do Not give oral and IV within 1 hour of each other unless specifically ordered. 1748 (Given - Provid er: Emily Escamilla RN) PRN Medication Order 12/23/2024 12/24/2024 12/25/2024 iopamidol (Isovue-370) 76 % injection 75 mL (COMPLETED) 75 mL, IntraVENous, IMG once PRN, contrast, Starting on Tue12/25/24 at 1855, For 1 dose 1903 (Given - Provid er: Tamy Chatman, RT (R)) Scheduled Medication Order 02/20/2025 02/21/2025 02/22/2025 FLUoxetine (PROzac) capsule 20 mg 20 mg, Oral, Daily, First dose on Bella 02/21/25 at 0800 0807 (Given - Provider: Miguelito Mcdonnell RN) 0900 (Given - Provider: Miguelito Mcdonnell RN) HYDROmorphone (Dilaudid) injection 0.5 mg (COMPLETED) 0.5 mg, IntraVENous, Once, On Tue02/20/25 at 1950, For 1 dose, If oral and injectable narcotics ordered, use oral first and only use injectable if oral is ineffective or cannot take oral. Do Not give oral and injectable within 1 hour of each other unless specifically ordered. 1951 (Given - Provider: Aye Hitchcock RN) HYDROmorphone (Dilaudid) injection 0.5 mg (COMPLETED) 0.5 mg, IntraVENous, Once, On Tue02/20/25 at 2025, For 1 dose, If oral and injectable narcotics ordered, use oral first and only use injectable if oral is ineffective or cannot take oral. Do Not give oral and injectable within 1 hour of each other unless specifically ordered. 2036 (Given - Provider: Everardo Price, MARIE) HYDROmorphone (Dilaudid) injection 0.5 mg (COMPLETED) 0.5 mg, IntraVENous, Once, On Tue02/20/25 at 2325, For 1 dose, If oral and injectable narcotics ordered, use oral first and only use injectable if oral is ineffective or cannot take oral. Do Not give oral and injectable within 1 hour of each other unless specifically ordered. 2327 (Given - Provider: Everardo Price, MARIE) morphine injection 4 mg (COMPLETED) 4 mg, IntraVENous, Once, On Tue02/20/25 at 1645, For 1 dose, If oral and injectable narcotics ordered, use oral first and only use injectable if oral is ineffective or cannot take oral. Do Not give oral and injectable within 1 hour of each other unless specifically ordered. 1748 (Given - Provider: Jacky De La Cruz RN) morphine injection 4 mg (COMPLETED) 4 mg, IntraVENous, Once, On Tue02/20/25 at 1855, For 1 dose, If oral and injectable narcotics ordered, use oral first and only use injectable if oral is ineffective or cannot take oral. Do Not give oral and injectable within 1 hour of each other unless specifically ordered. 1918 (Given - Provider: Jacky De La Cruz RN) polyethylene glycol (PEG) 3350 (Miralax) packet 17 g 17 g, Oral, Daily, First dose on Tue02/21/25 at 0900 0807 (Given - Provider: Miguelito Mcdonnell, MARIE) 0901 (Not Given - Provider: Miguelito Mcdonnell, MARIE - Reason: Patient/family refused) promethazine (Phenergan) injection 12.5 mg (COMPLETED) 12.5 mg, IntraMUSCular, Once, On Tue02/20/25 at 1645, For 1 dose, Only to be given as IM injection. 1736 (Given - Provider: Jacky De La Cruz RN) promethazine (Phenergan) injection 12.5 mg (COMPLETED) 12.5 mg, IntraMUSCular, Once, On Tue02/20/25 at 2024, For 1 dose, Only to be given as IM injection. 2036 (Given - Provider: Everardo Price, MARIE) sodium chloride 0.9 % bolus 1,000 mL (COMPLETED) 1,000 mL, IntraVENous, at 1,000 mL/hr, Administer over 1 Hours, Once, On Tue02/20/25 at 1645, For 1 dose 1750 (New Bag - Provider: Jacky De La Cruz RN)2017 (Stopped - Provider: Everardo Price RN) PRN Medication Order 02/20/2025 02/21/2025 02/22/2025 acetaminophen (Tylenol) suppository 650 mg(Linked Group 1) 650 mg, Rectal, Every 6 hours PRN, fever, For temp greater than 100.4 F (38 C), Starting on Bella 02/21/25 at 0609, Administer if oral route cannot be used. Maximum dose of acetaminophen is 4000 mg from all sources in 24 hours. acetaminophen (Tylenol) tablet 650 mg(Linked Group 1) 650 mg, Oral, Every 6 hours PRN, mild pain (1-3), fever, For temp greater than 100.4 F (38 C), Starting on Bella 02/21/25 at 0609, Maximum dose of acetaminophen is 4000 mg from all sources in 24 hours. HYDROmorphone (Dilaudid) injection 0.5 mg 0.5 mg, IntraVENous, Every 6 hours PRN, moderate pain (4-6), Starting on Bella 02/21/25 at 0145, If oral and injectable narcotics ordered, use oral first and only use injectable if oral is ineffective or cannot take oral. Do Not give oral and injectable within 1 hour of each other unless specifically ordered. 0156 (Given - Provider: Debo Garcia RN)1253 (Given - Provider: Miguelito Mcdonnell, MARIE)1838 (Given - Provider: Miguelito Mcdonnell RN) HYDROmorphone (Dilaudid) injection 0.5 mg 0.5 mg, IntraVENous, Every 6 hours PRN, severe pain (7-10), 2nd line for breakthrough pain, Starting on Bella 02/21/25 at 0610, If oral and IV narcotics ordered, use oral first and only use IV if oral is ineffective or cannot take oral. Do Not give oral and IV within 1 hour of each other unless specifically ordered. 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 oxyCODONE (Roxicodone) immediate release tablet 10 mg(Linked Group 2) 10 mg, Oral, Every 6 hours PRN, severe pain (7-10), Starting on Bella 02/21/25 at 0609 0807 (Given - Provider: Miguelito Mcdonnell RN)1403 (Given - Provider: Miguelito Mcdonnell RN)2058 (Given - Provider: Pete Correa, RN) 0458 (Given - Provider: Pete Correa, RN)1054 (Given - Provider: Miguelito Mcdonnell, MARIE) oxyCODONE (Roxicodone) immediate release tablet 5 mg(Linked Group 2) 5 mg, Oral, Every 6 hours PRN, moderate pain (4-6), Starting on Bella 02/21/25 at 0609 0807 (See Alternative - Provider: Miguelito Mcdonnell RN)1403 (See Alternative - Provider: Miguelito Mcdonnell RN)2058 (See Alternative - Provider: Pete Correa, RN) 0458 (See Alternative - Provider: Pete Correa, RN)1054 (See Alternative - Provider: Miguelito Mcdonnell RN) polyethylene glycol (PEG) 3350 (Miralax) packet 17 g 17 g, Oral, Daily PRN, constipation, Starting on Bella 02/21/25 at 0609, 1st line for treatment of constipation - give scheduled if no bowel movement in past 24 hours. prochlorperazine (Compazine) injection 5 mg (CANCELED) 5 mg, IntraVENous, Every 6 hours PRN, nausea, vomiting, Starting on Bella 02/21/25 at 0611 0809 (Given - Provider: Miguelito Mcdonnell RN) promethazine (Phenergan) injection 12.5 mg(Linked Group 3) 12.5 mg, IntraMUSCular, Every 6 hours PRN, nausea, vomiting, Starting on Bella 02/21/25 at 1413, Only to be given as IM injection. 1721 (Given - Provider: Miguelito Mcdonnell RN) 032 (See Alternative - Provider: Pete Correa RN)0937 (Given - Provider: Miguelito Mcdonnell RN) promethazine (Phenergan) suppository 12.5 mg(Linked Group 3) 12.5 mg, Rectal, Every 6 hours PRN, nausea, vomiting, Starting on Bella 02/21/25 at 1413 1721 (See Alternative - Provider: Miguelito Mcdonnell RN) 321 (See Alternative - Provider: Pete Correa RN)0937 (See Alternative - Provider: Miguelito Mcdonnell RN) promethazine (Phenergan) tablet 12.5 mg(Linked Group 3) 12.5 mg, Oral, Every 6 hours PRN, nausea, vomiting, Starting on Bella 02/21/25 at 1413 1721 (See Alternative - Provider: Miguelito Mcdonnell RN) 032 (Given - Provider: Pete Correa RN)0937 (See Alternative - Provider: Miguelito Mcdonnell RN) Linked Groups Order Group 1: acetaminophen (Tylenol) tablet 650 mgJump to med 650 mg, Oral, Every 6 hours PRN, mild pain (1-3), fever, For temp greater than 100.4 F (38 C), Starting on Bella 02/21/25 at 0609, Maximum dose of acetaminophen is 4000 mg from all sources in 24 hours. Or acetaminophen (Tylenol) suppository 650 mgJump to med 650 mg, Rectal, Every 6 hours PRN, fever, For temp greater than 100.4 F (38 C), Starting on Bella 02/21/25 at 0609, Administer if oral route cannot be used. Maximum dose of acetaminophen is 4000 mg from all sources in 24 hours. Group 2: oxyCODONE (Roxicodone) immediate release tablet 5 mgJump to med 5 mg, Oral, Every 6 hours PRN, moderate pain (4-6), Starting on Bella 02/21/25 at 0609 Or oxyCODONE (Roxicodone) immediate release tablet 10 mgJump to med 10 mg, Oral, Every 6 hours PRN, severe pain (7-10), Starting on Bella 02/21/25 at 0609 Group 3: promethazine (Phenergan) tablet 12.5 mgJump to med 12.5 mg, Oral, Every 6 hours PRN, nausea, vomiting, Starting on Bella 02/21/25 at 1413 Or promethazine (Phenergan) injection 12.5 mgJump to med 12.5 mg, IntraMUSCular, Every 6 hours PRN, nausea, vomiting, Starting on Bella 02/21/25 at 1413, Only to be given as IM injection. Or promethazine (Phenergan) suppository 12.5 mgJump to med 12.5 mg, Rectal, Every 6 hours PRN, nausea, vomiting, Starting on Bella 02/21/25 at 1413 Scheduled Medication Order 05/09/2025 05/10/2025 05/11/2025 acetaminophen (Ofirmev) IVPB 1,000 mg 1,000 mg, IntraVENous, at 400 mL/hr, Administer over 15 Minutes, Every 6 hours scheduled (4 times per day), First dose on Tue05/10/25 at 1345 1558 (New Bag - Provider: Corey Gaffney RN)1617 (Stopped - Provider: Corey Gaffney RN)1807 (Not Given - Provider: Corey Gaffney RN - Reason: Other - Comment: med is Q6 and first dose given late @1558 d/t med not available.) 0003 (New Bag - Provider: Raaenn Pavon RN)0031 (Stopped - Provider: Raeann Pavon RN)0613 (New Bag - Provider: Raeann Pavon RN)0744 (Stopped - Provider: Derek Henning, MARIE)1319 (Not Given - Provider: Derek Henning RN - Reason: Patient/family refused) diatrizoate meglumine-sodium (Gastrografin) 66-10 % solution 30 mL (COMPLETED) 30 mL, Oral, Once, On Tue05/10/25 at 1115, For 1 dose, Administered at the time of the exam. 111 (Given - Provider: Radha Grider, RT (R)) diphenhydrAMINE (BENADryl) injection 25 mg (COMPLETED) 25 mg, IntraVENous, Once, On Bella 05/09/25 at 2110, For 1 dose 2122 (Given - Provider: Debo Garcia RN) enoxaparin (Lovenox) syringe 40 mg 40 mg, SubCUTAneous, Every 24 hours scheduled (Daily), First dose on Tue05/10/25 at 0900, Indication of Use: Prophylaxis-DVT/PE, Indications: Prophylaxis of Venous Thromboembolism 1018 (Given - Provider: Corey Gaffney RN) 0757 (Given - Provider: Derek Henning, MARIE) FLUoxetine (PROzac) capsule 20 mg 20 mg, Oral, Daily, First dose on Tue05/10/25 at 0800 1018 (Given - Provider: Corey Gaffney RN) 0753 (Given - Provider: Derek Henning, MARIE) HYDROmorphone (Dilaudid) injection 0.5 mg (COMPLETED) 0.5 mg, IntraVENous, Once, On Bella 05/09/25 at 2110, For 1 dose, If oral and injectable narcotics ordered, use oral first and only use injectable if oral is ineffective or cannot take oral. Do Not give oral and injectable within 1 hour of each other unless specifically ordered. 2121 (Given - Provider: Debo Garcia RN) HYDROmorphone (Dilaudid) injection 1 mg (COMPLETED) 1 mg, IntraVENous, Once, On Bella 05/09/25 at 1915, For 1 dose 1914 (Given - Provider: Monse Shanks RN) lactated ringers bolus 1,000 mL (COMPLETED) 1,000 mL, IntraVENous, at 500 mL/hr, Administer over 2 Hours, Once, On Tue05/10/25 at 0145, For 1 dose 0211 (New Bag - Provider: Raeann Pavon RN)0401 (Stopped - Provider: Raeann Pavon RN) lactated ringers bolus 500 mL (COMPLETED) 500 mL, IntraVENous, at 250 mL/hr, Administer over 2 Hours, Once, On Tue05/10/25 at 0430, For 1 dose 0430 (New Bag - Provider: Raeann Pavon RN)0648 (Stopped - Provider: Raeann Pavon RN) LORazepam (Ativan) injection 1 mg (COMPLETED) 1 mg, IntraVENous, Once, On Bella 05/09/25 at 2000, For 1 dose, For IV doses dilute dose with 1ml NS. 2003 (Given - Provider: Miranda Smart RN) metoclopramide (Reglan) injection 10 mg (COMPLETED) 10 mg, IntraVENous, Once, On Bella 05/09/25 at 2110, For 1 dose 2122 (Given - Provider: Debo Garcia RN) morphine injection 4 mg (COMPLETED) 4 mg, IntraVENous, Once, On Bella 05/09/25 at 1820, For 1 dose 1823 (Given - Provider: Monse Shanks RN) promethazine (Phenergan) injection 6.25 mg (COMPLETED) 6.25 mg, IntraMUSCular, Once, On Bella 05/09/25 at 1820, For 1 dose, Only to be given as IM injection. 1823 (Given - Provider: Monse Shanks RN) sodium chloride 0.9 % bolus 1,000 mL (COMPLETED) 1,000 mL, IntraVENous, at 1,000 mL/hr, Administer over 1 Hours, Once, On Bella 05/09/25 at 1820, For 1 dose 182 (New Bag - Provider: Miranda Smart RN - Comment: under dose due to pt traveling POV to hospital and request , provider aware)2235 (Stopped - Provider: Miranda Smart RN) sodium chloride 0.9 % bolus 1,000 mL (COMPLETED) 1,000 mL, IntraVENous, at 1,000 mL/hr, Administer over 1 Hours, Once, On Bella 05/09/25 at 1940, For 1 dose 1941 (New Bag - Provider: Miranda Smart RN)2236 (Stopped - Provider: Miranda Smart RN) Continuous Medication Order 05/09/2025 05/10/2025 05/11/2025 lactated Ringer's infusion (CANCELED) 100 mL/hr, IntraVENous, Continuous, Starting on Tue05/10/25 at 0300, For 12 hours 0351 (New Bag - Provider: Raeann Pvaon RN)1039 (Stopped - Provider: Corey Gaffney RN - Comment: [Order ends at this time. Document the following action when infusion is complete: Stopped]) lactated Ringer's infusion 100 mL/hr, IntraVENous, Continuous, Starting on Tue05/10/25 at 0830 1034 (New Bag - Provider: Corey Gaffney RN)2017 (New Bag - Provider: Raeann Pavon RN) 1517 (Due: Order Ending - Provider: Automatic Discharge Provider - Comment: [Order ends at this time. Document the following action when infusion is complete: Stopped]) PRN Medication Order 05/09/2025 05/10/2025 05/11/2025 HYDROmorphone (Dilaudid) injection 0.5 mg (CANCELED) 0.5 mg, IntraVENous, Every 4 hours PRN, severe pain (7-10), Starting on Tue05/10/25 at 0131, If oral and injectable narcotics ordered, use oral first and only use injectable if oral is ineffective or cannot take oral. Do Not give oral and injectable within 1 hour of each other unless specifically ordered. 0203 (Given - Provider: Raeann Pavon RN)0603 (Given - Provider: Raeann Pavon RN)1015 (Given - Provider: Corey Gaffney RN) HYDROmorphone (Dilaudid) injection 0.5 mg 0.5 mg, IntraVENous, Every 4 hours PRN, moderate pain (4-6), severe pain (7-10), Starting on Tue05/11/25 at 0946, If oral and injectable narcotics ordered, use oral first and only use injectable if oral is ineffective or cannot take oral. Do Not give oral and injectable within 1 hour of each other unless specifically ordered. 1042 (Given - Provider: Derek Henning, MARIE) HYDROmorphone (Dilaudid) injection 1 mg (CANCELED)(Linked Group 1) 1 mg, IntraVENous, Every 4 hours PRN, severe pain (7-10), Starting on Tue05/10/25 at 1343, If oral and IV narcotics ordered, use oral first and only use IV if oral is ineffective or cannot take oral. Do Not give oral and IV within 1 hour of each other unless specifically ordered. 1408 (Given - Provider: Corey Gaffney, MAIRE)1858 (Given - Provider: Corey Gaffney RN)2310 (Given - Provider: Raeann Pavon, MARIE) 0318 (Given - Provider: Raeann Pavon RN)0753 (Given - Provider: Derek Henning, MARIE) iopamidol (Isovue-370) 76 % injection 75 mL (COMPLETED) 75 mL, IntraVENous, IMG once PRN, contrast, Starting on Bella 05/09/25 at 1852, For 1 dose 1852 (Given - Provider: Sol Vaz, RT (R)) morphine injection 4 mg (CANCELED)(Linked Group 2) 4 mg, IntraVENous, Every 4 hours PRN, severe pain (7-10), Starting on Tue05/10/25 at 0040, If oral and IV narcotics ordered, use oral first and only use IV if oral is ineffective or cannot take oral. Do Not give oral and IV within 1 hour of each other unless specifically ordered. 0044 (Given - Provider: Raeann Pavon RN) naloxone (Narcan) 0.4 mg in 0.9% sodium chloride 10 mL syringe IntraVENous, PRN, opioid reversal, Starting on Tue05/10/25 at 0040, PRN if respiratory rate is less than 6/min and patient is difficult to arouse then notify physician STAT. Mix 9 mL of sodium chloride 0.9% with 0.4 mg (1 mL) of naloxone (NARCAN) in 10 mL syringe. (Note: dilution is 0.04 mg/mL) Give 0.08 mg (2 mL of special dilution), slow IV push, repeat up to 0.4 mg (10 mL) or until patient is responsive to physical stimulation and respiratory rate is equal to or greater than 6 breaths/min. Continue to observe, if no response within 3 minutes of administration of 0.4 mg (10 mL) total, repeat dose (0.4 mg as administered previously). oxyCODONE (Roxicodone) immediate release tablet 10 mg(Linked Group 3) 10 mg, Oral, Every 4 hours PRN, severe pain (7-10), Starting on 05/11/25 at 0943 oxyCODONE (Roxicodone) immediate release tablet 5 mg (CANCELED) 5 mg, Oral, Every 6 hours PRN, moderate pain (4-6), Starting on Tue05/10/25 at 0131 0334 (Given - Provider: Raeann Pavon RN) oxyCODONE (Roxicodone) immediate release tablet 5 mg (CANCELED) 5 mg, Oral, Every 4 hours PRN, moderate pain (4-6), severe pain (7-10), Starting on Tue05/10/25 at 1339 1609 (Given - Provider: Corey Gaffney RN)2016 (Given - Provider: Raeann Pavon RN) 023 (Given - Provider: Raeann Pavon RN)0636 (Given - Provider: Raeann Pavon RN) oxyCODONE (Roxicodone) immediate release tablet 5 mg(Linked Group 3) 5 mg, Oral, Every 4 hours PRN, moderate pain (4-6), Starting on 05/11/25 at 0943 polyethylene glycol (PEG) 3350 (Miralax) packet 17 g 17 g, Oral, Daily PRN, constipation, Starting on Bella 05/09/25 at 2358, 1st line for treatment of constipation - give scheduled if no bowel movement in past 24 hours. promethazine (Phenergan) injection 25 mg 25 mg, IntraMUSCular, Every 6 hours PRN, nausea, vomiting, Starting on Tue05/10/25 at 1338, Only to be given as IM injection. 1408 (Given - Provider: Corey Gaffney RN)2016 (Given - Provider: Raeann Pavon RN) 023 (Given - Provider: Isayas Teclehaimanot, RN) promethazine (Phenergan) injection 6.25 mg (CANCELED) 6.25 mg, IntraMUSCular, Every 6 hours PRN, nausea, vomiting, Starting on Tue05/10/25 at 0152, Only to be given as IM injection. 0157 (Given - Provider: Raeann Pavon RN)1017 (Given - Provider: Corey Gaffney RN) Linked Groups Order Group 1: HYDROmorphone (Dilaudid) injection 0.5 mg (CANCELED) 0.5 mg, IntraVENous, Every 4 hours PRN, moderate pain (4-6), Starting on Tue05/10/25 at 1343, If oral and IV narcotics ordered, use oral first and only use IV if oral is ineffective or cannot take oral. Do Not give oral and IV within 1 hour of each other unless specifically ordered. Or HYDROmorphone (Dilaudid) injection 1 mg (CANCELED)Jump to med 1 mg, IntraVENous, Every 4 hours PRN, severe pain (7-10), Starting on Tue05/10/25 at 1343, If oral and IV narcotics ordered, use oral first and only use IV if oral is ineffective or cannot take oral. Do Not give oral and IV within 1 hour of each other unless specifically ordered. Group 2: morphine injection 2 mg (CANCELED) 2 mg, IntraVENous, Every 4 hours PRN, moderate pain (4-6), Starting on Tue05/10/25 at 0040, If oral and IV narcotics ordered, use oral first and only use IV if oral is ineffective or cannot take oral. Do Not give oral and IV within 1 hour of each other unless specifically ordered. Or morphine injection 4 mg (CANCELED)Jump to med 4 mg, IntraVENous, Every 4 hours PRN, severe pain (7-10), Starting on Tue05/10/25 at 0040, If oral and IV narcotics ordered, use oral first and only use IV if oral is ineffective or cannot take oral. Do Not give oral and IV within 1 hour of each other unless specifically ordered. Group 3: oxyCODONE (Roxicodone) immediate release tablet 5 mgJump to med 5 mg, Oral, Every 4 hours PRN, moderate pain (4-6), Starting on Tue05/11/25 at 0943 Or oxyCODONE (Roxicodone) immediate release tablet 10 mgJump to med 10 mg, Oral, Every 4 hours PRN, severe pain (7-10), Starting on 05/11/25 at 0943 Scheduled Medication Order 05/22/2025 05/23/2025 05/24/2025 Diclofenac Sodium (Voltaren) 1 % gel 2 g 2 g, Topical, 2 times daily, First dose on Tue05/21/25 at 0000, Apply to neck. 0953 (Given - Provider: Cherie Lopez RN)2102 (Given - Provider: Zara Tolliver, MARIE) 825 (Given - Provider: Cherie Lopez RN)2051 (Not Given - Provider: Zara Tolliver RN - Reason: Patient/family refused) 828 (Not Given - Provider: Norah Solis RN - Reason: Patient/family refused) diphenhydrAMINE (BENADryl) tablet/capsule 25 mg (COMPLETED) 25 mg, Oral, Once, On Tue05/23/25 at 0900, For 1 dose 0856 (Given - Provider: Cherie Lopez RN) enoxaparin (Lovenox) syringe 40 mg 40 mg, SubCUTAneous, Every 24 hours scheduled (Daily), First dose on Tue05/21/25 at 0900, Indication of Use: Prophylaxis-DVT/PE, Indications: Prophylaxis of Venous Thromboembolism 0823 (Given - Provider: Cherie Lopez RN) 0824 (Given - Provider: Cherie Lopez RN) 0828 (Given - Provider: Norah Solis, RN) FLUoxetine (PROzac) capsule 20 mg 20 mg, Oral, Daily, First dose on Tue05/21/25 at 0800 1042 (Not Given - Provider: Cherie Lopez RN - Reason: Patient/family refused) 0824 (Given - Provider: Cherie Lopez RN) 0828 (Given - Provider: Norah Solis, MARIE) mirtazapine (Remeron Lydia-Tab) disintegrating tablet 15 mg 15 mg, Oral, Nightly, First dose on Tue05/23/25 at 2100, Remove from blister pack and dissolve tablet on tongue. Do not chew, crush, or split. 2052 (Given - Provider: Zara Tolliver RN) Continuous Medication Order 05/22/2025 05/23/2025 05/24/2025 lactated Ringer's infusion (CANCELED) 100 mL/hr, IntraVENous, Continuous, Starting on Tue05/21/25 at 1730 0412 (New Bag - Provider: Kaci Rodriguez RN)0503 (Rate/Dose Verify - Provider: Kaci Rodriguez RN)1422 (New Bag - Provider: Cherie Lopez RN)2314 (New Bag - Provider: Zara Tolliver RN) 0728 (New Bag - Provider: Zara Tolliver RN)1419 (Stopped - Provider: Cherie Lopez RN - Comment: [Order ends at this time. Document the following action when infusion is complete: Stopped]) lactated Ringer's infusion () 100 mL/hr, IntraVENous, Continuous, Starting on Bella 05/23/25 at 1415, For 6 hours 1419 (Rate/Dose Verify - Provider: Cherie Lopez RN)1735 (New Bag - Provider: Cherie Lopez RN)2020 (Stopped - Provider: Zara Tolliver RN - Comment: [Order ends at this time. Document the following action when infusion is complete: Stopped]) PRN Medication Order 05/22/2025 05/23/2025 05/24/2025 acetaminophen (Ofirmev) IVPB 1,000 mg 1,000 mg, IntraVENous, at 400 mL/hr, Administer over 15 Minutes, Every 6 hours PRN, pain, Starting on Tue05/20/25 at 2349, For 6 doses acetaminophen (Tylenol) suppository 650 mg(Linked Group 1) 650 mg, Rectal, Every 6 hours PRN, fever, For temp greater than 100.4 F (38 C), Starting on Tue05/20/25 at 2346, Administer if oral route cannot be used. Maximum dose of acetaminophen is 4000 mg from all sources in 24 hours. 162 (See Alternative - Provider: Cherie Lopez RN) acetaminophen (Tylenol) tablet 650 mg(Linked Group 1) 650 mg, Oral, Every 6 hours PRN, mild pain (1-3), fever, For temp greater than 100.4 F (38 C), Starting on Tue05/20/25 at 2346, Maximum dose of acetaminophen is 4000 mg from all sources in 24 hours. 1621 (Given - Provider: Cherie Lopez RN - Comment: messaged Dr. Kitchen for pain score and no appropriate medication orders due at this time - awaiting response) HYDROmorphone (Dilaudid) injection 1 mg (CANCELED) 1 mg, IntraVENous, Every 4 hours PRN, severe pain (7-10), Starting on Tue05/21/25 at 0514, If oral and IV narcotics ordered, use oral first and only use IV if oral is ineffective or cannot take oral. Do Not give oral and IV within 1 hour of each other unless specifically ordered. 0412 (Given - Provider: Kaci Rodriguez RN)0821 (Given - Provider: Cherie Lopez RN)1214 (Given - Provider: Cherie Lopez RN)1606 (Given - Provider: Cherie Lopez RN)2101 (Given - Provider: Zara Tolliver RN) 0100 (Given - Provider: Zara Tolliver RN)0600 (Given - Provider: Zara Tolliver RN)1019 (Given - Provider: Cherie Lopez RN) HYDROmorphone (Dilaudid) injection 1 mg (COMPLETED)(Linked Group 2) 1 mg, IntraVENous, Every 4 hours PRN, severe pain (7-10), Starting on Bella 05/23/25 at 1210, For 1 dose, If oral and IV narcotics ordered, use oral first and only use IV if oral is ineffective or cannot take oral. Do Not give oral and IV within 1 hour of each other unless specifically ordered. 1408 (Given - Provider: Cherie Lopez RN) ipratropium-albuterol (Duo-Neb) 0.5-2.5 mg/3 mL nebulizer solution 3 mL 3 mL, Nebulization, 3 times daily PRN, wheezing, Starting on Tue05/20/25 at 2345 LORazepam (Ativan) injection 0.5 mg 0.5 mg, IntraVENous, Every 6 hours PRN, anxiety, Starting on Tue05/20/25 at 2352, For IV doses dilute dose with 1ml NS. 0412 (Given - Provider: Kaci Rodriguez RN)1039 (Given - Provider: Cherie Lopez RN)1658 (Given - Provider: Cherie Lopez RN)2314 (Given - Provider: Zara Tolliver RN) 0600 (Given - Provider: Zara Tolliver RN)1246 (Given - Provider: Cherie Lopez RN)1839 (Given - Provider: Cherie Lopez RN) 0040 (Given - Provider: Zara Tolliver RN)0658 (Given - Provider: Zara Tolliver RN) naloxone (Narcan) injection 0.4 mg 0.4 mg, IntraVENous, As needed, opioid reversal, pinpoint pupils, Starting on Tue05/20/25 at 2348, administer IV PRN for oversedation, RR LESS than 10 oxyCODONE (Roxicodone) immediate release tablet 10 mg 10 mg, Oral, Every 6 hours PRN, severe pain (7-10), Starting on Tue05/23/25 at 1647 1839 (Given - Provider: Cherie Lopez RN) 0040 (Given - Provider: Zara Tolliver RN)0658 (Given - Provider: Zara Tolliver RN) oxyCODONE (Roxicodone) immediate release tablet 5 mg (CANCELED) 5 mg, Oral, Every 6 hours PRN, severe pain (7-10), Starting on Tue05/23/25 at 1211 1250 (Given - Provider: Cherie Lopez RN) polyethylene glycol (PEG) 3350 (Miralax) packet 17 g 17 g, Oral, Daily PRN, constipation, Starting on Tue05/20/25 at 2346, 1st line for treatment of constipation - give scheduled if no bowel movement in past 24 hours. promethazine (Phenergan) injection 12.5 mg(Linked Group 3) 12.5 mg, IntraMUSCular, Every 6 hours PRN, nausea, vomiting, Starting on Tue05/21/25 at 0719, If unable to use PO route. Only to be given as IM injection. 0412 (Given - Provider: Kaci Rodriguez RN)1039 (Given - Provider: Cherie Lopez RN)1658 (Given - Provider: Cherie Lopez RN)2314 (Given - Provider: Zara Tolliver RN) 0600 (Given - Provider: Zara Tolliver RN)1246 (Given - Provider: Cherie Lopez RN)1839 (See Alternative - Provider: Cherie Lopez RN) 0040 (See Alternative - Provider: Zara Tolliver RN)0658 (See Alternative - Provider: Zara Tolliver, MARIE) promethazine (Phenergan) suppository 12.5 mg(Linked Group 3) 12.5 mg, Rectal, Every 6 hours PRN, nausea, vomiting, Starting on Tue05/21/25 at 0719, Use if unable to use PO or IM routes. 0412 (See Alternative - Provider: Kaci Rodriguez RN)1039 (See Alternative - Provider: Cherie Lopez RN)1658 (See Alternative - Provider: Cherie Lopez RN)2314 (See Alternative - Provider: Zara Tolliver RN) 0600 (See Alternative - Provider: Zara Tolliver RN)1246 (See Alternative - Provider: Cherie Lopez RN)1839 (See Alternative - Provider: Cherie Lopez RN) 0040 (See Alternative - Provider: Zara Tolliver RN)0658 (See Alternative - Provider: Zara Tolliver, MARIE) promethazine (Phenergan) tablet 12.5 mg(Linked Group 3) 12.5 mg, Oral, Every 6 hours PRN, nausea, vomiting, Starting on Tue05/21/25 at 0719 0412 (See Alternative - Provider: Kaci Rodriguez RN)1039 (See Alternative - Provider: Cherie Lopez RN)1658 (See Alternative - Provider: Cherie Lopez RN)2314 (See Alternative - Provider: Zara Tolliver, MARIE) 0600 (See Alternative - Provider: Zara Tolliver, MARIE)1246 (See Alternative - Provider: Cherie Lopez RN)1839 (Given - Provider: Cherie Lopez RN) 0040 (Given - Provider: Zara Tolliver RN)0658 (Given - Provider: Zara Tolliver, MARIE) traMADol (Ultram) tablet 50 mg (CANCELED) 50 mg, Oral, Every 6 hours PRN, moderate pain (4-6), Starting on Tue05/22/25 at 1252 1426 (Given - Provider: Cherie Lopez RN) Linked Groups Order Group 1: acetaminophen (Tylenol) tablet 650 mgJump to med 650 mg, Oral, Every 6 hours PRN, mild pain (1-3), fever, For temp greater than 100.4 F (38 C), Starting on Tue05/20/25 at 2346, Maximum dose of acetaminophen is 4000 mg from all sources in 24 hours. Or acetaminophen (Tylenol) suppository 650 mgJump to med 650 mg, Rectal, Every 6 hours PRN, fever, For temp greater than 100.4 F (38 C), Starting on Tue05/20/25 at 2346, Administer if oral route cannot be used. Maximum dose of acetaminophen is 4000 mg from all sources in 24 hours. Group 2: HYDROmorphone (Dilaudid) injection 1 mg (COMPLETED)Jump to med 1 mg, IntraVENous, Every 4 hours PRN, severe pain (7-10), Starting on Bella 05/23/25 at 1210, For 1 dose, If oral and IV narcotics ordered, use oral first and only use IV if oral is ineffective or cannot take oral. Do Not give oral and IV within 1 hour of each other unless specifically ordered. Group 3: promethazine (Phenergan) tablet 12.5 mgJump to med 12.5 mg, Oral, Every 6 hours PRN, nausea, vomiting, Starting on Tue05/21/25 at 0719 Or promethazine (Phenergan) injection 12.5 mgJump to med 12.5 mg, IntraMUSCular, Every 6 hours PRN, nausea, vomiting, Starting on Tue05/21/25 at 0719, If unable to use PO route. Only to be given as IM injection. Or promethazine (Phenergan) suppository 12.5 mgJump to med 12.5 mg, Rectal, Every 6 hours PRN, nausea, vomiting, Starting on Tue05/21/25 at 0719, Use if unable to use PO or IM routes. Scheduled Medication Order 07/08/2025 07/09/2025 07/10/2025 diatrizoate meglumine-sodium (Gastrografin) 66-10 % solution 30 mL (COMPLETED) 30 mL, Oral, Once, On Tue07/09/25 at 0840, For 1 dose, Administered at the time of the exam. 0837 (Given - Provider: Radha Grider, RT (R)) diphenhydrAMINE (BENADryl) injection 25 mg (COMPLETED) 25 mg, IntraVENous, Once, On Tue07/08/25 at 1655, For 1 dose 1706 (Given - Provider: Moira Galeano, MARIE) enoxaparin (Lovenox) syringe 40 mg 40 mg, SubCUTAneous, Every 24 hours, First dose on Tue07/09/25 at 0315, Indication of Use: Prophylaxis-DVT/PE, Indications: Prophylaxis of Venous Thromboembolism 0407 (Not Given - Provider: Karen Echols RN - Reason: Patient/family refused) 0231 (Not Given - Provider: Lisette Suarez RN - Reason: Patient/family refused) FLUoxetine (PROzac) capsule 20 mg 20 mg, Oral, Daily, First dose on Tue07/09/25 at 0800 0855 (Not Given - Provider: Nerissa Mcknight RN - Reason: Patient/family refused) 0757 (Given - Provider: Kristie Cochran RN) HYDROmorphone (Dilaudid) injection 0.5 mg (COMPLETED) 0.5 mg, IntraVENous, Once, On Tue07/08/25 at 2040, For 1 dose, If oral and injectable narcotics ordered, use oral first and only use injectable if oral is ineffective or cannot take oral. Do Not give oral and injectable within 1 hour of each other unless specifically ordered. 2045 (Given - Provider: Porsha Moran RN) HYDROmorphone (Dilaudid) injection 0.5 mg (COMPLETED) 0.5 mg, IntraVENous, Once, On Tue07/08/25 at 2150, For 1 dose, If oral and injectable narcotics ordered, use oral first and only use injectable if oral is ineffective or cannot take oral. Do Not give oral and injectable within 1 hour of each other unless specifically ordered. 2150 (Given - Provider: Karen Echols RN) HYDROmorphone (Dilaudid) injection 0.5 mg (COMPLETED) 0.5 mg, IntraVENous, Once, On Tue07/09/25 at 0025, For 1 dose, If oral and injectable narcotics ordered, use oral first and only use injectable if oral is ineffective or cannot take oral. Do Not give oral and injectable within 1 hour of each other unless specifically ordered. 32 (Given - Provider: Karen Echols RN) HYDROmorphone (Dilaudid) injection 1 mg (COMPLETED) 1 mg, IntraVENous, Once, On Tue07/08/25 at 1545, For 1 dose 1604 (Given - Provider: Debo Aleman, RN) ketamine 24.5 mg in sodium chloride 0.9 % 50 mL ivpb (COMPLETED) 24.5 mg (rounded from 24.725 mg = 0.25 mg/kg 98.9 kg), IntraVENous, at 157.4 mL/hr, Administer over 20 Minutes, Once, On Tue07/09/25 at 0300, For 1 dose 0319 (New Bag - Provider: Neri Cullen RN)0339 (Stopped - Provider: Karen Echols RN) metoclopramide (Reglan) injection 10 mg (COMPLETED) 10 mg, IntraVENous, Once, On Tue07/08/25 at 1655, For 1 dose 170 (Given - Provider: Moira Galeano, MARIE) morphine injection 4 mg (COMPLETED) 4 mg, IntraVENous, Once, On Tue07/08/25 at 1755, For 1 dose, If oral and injectable narcotics ordered, use oral first and only use injectable if oral is ineffective or cannot take oral. Do Not give oral and injectable within 1 hour of each other unless specifically ordered. 1801 (Given - Provider: Moira Galeano, MARIE) morphine injection 4 mg (COMPLETED) 4 mg, IntraVENous, Once, On Tue07/08/25 at 1910, For 1 dose, If oral and injectable narcotics ordered, use oral first and only use injectable if oral is ineffective or cannot take oral. Do Not give oral and injectable within 1 hour of each other unless specifically ordered. 1909 (Given - Provider: Porsha Moran RN) promethazine (Phenergan) injection 25 mg (COMPLETED) 25 mg, IntraMUSCular, Once, On Tue07/08/25 at 1545, For 1 dose, Only to be given as IM injection. 160 (Given - Provider: Debo Aleman, MARIE) promethazine (Phenergan) injection 25 mg (COMPLETED) 25 mg, IntraMUSCular, Once, On Tue07/08/25 at 1910, For 1 dose, Only to be given as IM injection. 1909 (Given - Provider: Porsha Moran RN) sodium chloride 0.9 % bolus 1,000 mL (COMPLETED) 1,000 mL, IntraVENous, at 1,000 mL/hr, Administer over 1 Hours, Once, On 07/08/25 at 1545, For 1 dose 1605 (New Bag - Provider: Debo Aleman, RN)1758 (Stopped - Provider: Moira Galeano RN) Continuous Medication Order 07/08/2025 07/09/2025 07/10/2025 lactated Ringer's (LR) infusion 100 mL/hr, IntraVENous, Continuous, Starting on Tue07/09/25 at 0315 0411 (New Bag - Provider: Karen Echols RN)0618 (Rate/Dose Verify - Provider: Karen Echols RN)1440 (New Bag - Provider: Nreissa Mcknight RN) 0033 (New Bag - Provider: Lisette Suarez RN)0645 (Rate/Dose Verify - Provider: Lisette Suarez RN)1812 (Due: Order Ending - Provider: Automatic Discharge Provider - Comment: [Order ends at this time. Document the following action when infusion is complete: Stopped]) PRN Medication Order 07/08/2025 07/09/2025 07/10/2025 acetaminophen (Tylenol) suppository 650 mg(Linked Group 1) 650 mg, Rectal, Every 6 hours PRN, fever, For temp greater than 100.4 F (38 C), Starting on Tue07/09/25 at 031, Administer if oral route cannot be used. Maximum dose of acetaminophen is 4000 mg from all sources in 24 hours. 1457 (See Alternativ e - Provider: Daphne Devine RN) acetaminophen (Tylenol) tablet 650 mg(Linked Group 1) 650 mg, Oral, Every 6 hours PRN, mild pain (1-3), fever, For temp greater than 100.4 F (38 C), Starting on Tue07/09/25 at 0311, Maximum dose of acetaminophen is 4000 mg from all sources in 24 hours. 1457 (Given - Provider: Daphne Devine RN - Comment: abd) HYDROcodone-acetaminoph en (Laneview) 5-325 MG per tablet 1 tablet (CANCELED) 1 tablet, Oral, Every 6 hours PRN, moderate pain (4-6), Starting on Tue07/09/25 at 0409, Maximum dose of acetaminophen is 4000 mg from all sources in 24 hours. 2016 (Given - Provider: Lisette Suarez, MARIE) 0232 (Given - Provider: Lisette Suarez, RN)0924 (Given - Provider: Kristie Cochran, MARIE) HYDROmorphone (Dilaudid) injection 0.5 mg (CANCELED) 0.5 mg, IntraVENous, Every 4 hours PRN, severe pain (7-10), Starting on Tue07/09/25 at 0525, If oral and IV narcotics ordered, use oral first and only use IV if oral is ineffective or cannot take oral. Do Not give oral and IV within 1 hour of each other unless specifically ordered. 0535 (Given - Provider: Karen Echols RN)0935 (Given - Provider: Nerissa Mcknight, RN)1439 (Given - Provider: Nerissa Mcknight, RN)1841 (Given - Provider: Corey Gaffney RN - Comment: unable to give Laneview due to stomach discomfort post procedure.)2246 (Given - Provider: Lisette Suarez RN) 0335 (Given - Provider: Lisette Suarez RN)0803 (Given - Provider: Kristie Cochran, MARIE) iopamidol (Isovue-370) 76 % injection 75 mL (COMPLETED) 75 mL, IntraVENous, IMG once PRN, contrast, Starting on Tue07/08/25 at 1653, For 1 dose 1700 (Given - Provider: Tamy Chatman, RT (R)) naloxone (Narcan) injection 0.4 mg 0.4 mg, IntraVENous, Every 5 min PRN, opioid reversal, respiratory depression, Starting on Tue07/09/25 at 0315, +++ For RR <10, pinpoint pupils, over sedation for opioid reversal - MUST notify longwall headgate operator provider immediately after first dose, may give IM or SQ if no IV access +++ oxyCODONE (Roxicodone) immediate release tablet 2.5 mg(Linked Group 2) 2.5 mg, Oral, Every 8 hours PRN, moderate pain (4-6), Starting on Tue07/10/25 at 1034 1457 (See Alternativ e - Provider: Daphne Devine RN) oxyCODONE (Roxicodone) immediate release tablet 5 mg(Linked Group 2) 5 mg, Oral, Every 8 hours PRN, severe pain (7-10), Starting on Tue07/10/25 at 1034 1457 (Given - Provider: Daphne Devine RN) polyethylene glycol (PEG) 3350 (Miralax) packet 17 g 17 g, Oral, Daily PRN, constipation, Starting on Tue07/09/25 at 0311, 1st line for treatment of constipation - give scheduled if no bowel movement in past 24 hours. prochlorperazine (Compazine) injection 10 mg(Linked Group 3) 10 mg, IntraVENous, Every 6 hours PRN, nausea, vomiting, Starting on Tue07/09/25 at 0313, Give IV if patient is unable to take orally. Give IM if patient is unable to take orally and does not have IV access. 0935 (Given - Provider: Nerissa Mcknight RN) prochlorperazine (Compazine) suppository 25 mg(Linked Group 3) 25 mg, Rectal, Every 12 hours PRN, nausea, vomiting, Starting on Tue07/09/25 at 0313, Give LA if patient is unable to take orally or receive by injection. 0935 (See Alternative - Provider: Nerissa Mcknight RN) prochlorperazine (Compazine) tablet 10 mg(Linked Group 3) 10 mg, Oral, Every 6 hours PRN, nausea, vomiting, Starting on Tue07/09/25 at 0313 0935 (See Alternative - Provider: Nerissa Mcknight RN) promethazine (Phenergan) tablet 12.5 mg 12.5 mg, Oral, Every 8 hours PRN, nausea, vomiting, Starting on Tue07/09/25 at 0354 0426 (Given - Provider: Karen Echols, RN)2017 (Given - Provider: Lisette Suarez RN) 0757 (Given - Provider: Kristie Cochran RN) Linked Groups Order Group 1: acetaminophen (Tylenol) tablet 650 mgJump to med 650 mg, Oral, Every 6 hours PRN, mild pain (1-3), fever, For temp greater than 100.4 F (38 C), Starting on Tue07/09/25 at 0311, Maximum dose of acetaminophen is 4000 mg from all sources in 24 hours. Or acetaminophen (Tylenol) suppository 650 mgJump to med 650 mg, Rectal, Every 6 hours PRN, fever, For temp greater than 100.4 F (38 C), Starting on Tue07/09/25 at 0311, Administer if oral route cannot be used. Maximum dose of acetaminophen is 4000 mg from all sources in 24 hours. Group 2: oxyCODONE (Roxicodone) immediate release tablet 2.5 mgJump to med 2.5 mg, Oral, Every 8 hours PRN, moderate pain (4-6), Starting on Tue07/10/25 at 1034 Or oxyCODONE (Roxicodone) immediate release tablet 5 mgJump to med 5 mg, Oral, Every 8 hours PRN, severe pain (7-10), Starting on Tue07/10/25 at 1034 Group 3: prochlorperazine (Compazine) tablet 10 mgJump to med 10 mg, Oral, Every 6 hours PRN, nausea, vomiting, Starting on Tue07/09/25 at 0313 Or prochlorperazine (Compazine) injection 10 mgJump to med 10 mg, IntraVENous, Every 6 hours PRN, nausea, vomiting, Starting on Tue07/09/25 at 0313, Give IV if patient is unable to take orally. Give IM if patient is unable to take orally and does not have IV access. Or prochlorperazine (Compazine) suppository 25 mgJump to med 25 mg, Rectal, Every 12 hours PRN, nausea, vomiting, Starting on Tue07/09/25 at 0313, Give LA if patient is unable to take orally or receive by injection. Scheduled Medication Order 07/28/2025 07/29/2025 07/30/2025 acetaminophen (Tylenol) tablet 1,000 mg (COMPLETED) 1,000 mg, Oral, Once, On Tue07/30/25 at 1910, For 1 dose, Maximum dose of acetaminophen is 4000 mg from all sources in 24 hours. 1935 (Given - Provid er: Alfredo Magaña, JAZZY) dicyclomine (Bentyl) capsule 10 mg (COMPLETED) 10 mg, Oral, Once, On Tue07/30/25 at 1910, For 1 dose 1948 (Given - Provid er: Jaymie Parra RN) HYDROmorphone (Dilaudid) injection 0.5 mg (COMPLETED) 0.5 mg, IntraVENous, Once, On e 07/30/25 at 1710, For 1 dose, If oral and injectable narcotics ordered, use oral first and only use injectable if oral is ineffective or cannot take oral. Do Not give oral and injectable within 1 hour of each other unless specifically ordered. 180 (Given - Provid er: Norma Boswell, EMT) HYDROmorphone (Dilaudid) injection 0.5 mg (COMPLETED) 0.5 mg, IntraVENous, Once, On e 07/30/25 at 1910, For 1 dose, If oral and injectable narcotics ordered, use oral first and only use injectable if oral is ineffective or cannot take oral. Do Not give oral and injectable within 1 hour of each other unless specifically ordered. 193 (Given - Provid er: Alfredo Magaña, JAZZY) metoclopramide (Reglan) injection 10 mg (COMPLETED) 10 mg, IntraVENous, Once, On Tue07/30/25 at 1450, For 1 dose 153 (Given - Provid er: Aundrea Ayala RN) potassium chloride (Klor-Con) packet 40 mEq (COMPLETED) 40 mEq, Oral, Once, On e 07/30/25 at 1820, For 1 dose, Dissolve each packet in 4 ounces of water = 5 mEq per 1 oz fluid., Indications: Hypokalemia 185 (Given - Provid er: Tamy Harris RN) sodium chloride 0.9 % bolus 500 mL (COMPLETED) 500 mL, IntraVENous, at 500 mL/hr, Administer over 1 Hours, Once, On e 07/30/25 at 1450, For 1 dose 153 (New Bag - Prov ider: Vishal Dubois, EMT)160 (Stopped - Provider: JAZZY Dobbins) sodium chloride 0.9 % bolus 500 mL (COMPLETED) 500 mL, IntraVENous, at 500 mL/hr, Administer over 1 Hours, Once, On Tue07/30/25 at 1825, For 1 dose 193 (New Bag - Prov ider: JAZZY Peralta)2005 (Stopped - Provider: Kelsi Heredia RN) PRN Medication Order 07/28/2025 07/29/2025 07/30/2025 iopamidol (Isovue-370) 76 % injection 75 mL (COMPLETED) 75 mL, IntraVENous, IMG once PRN, contrast, Starting on Tue07/30/25 at 1557, For 1 dose 1558 (Given - Provid er: Saba Osullivan, RT (R)(CT)) Scheduled Medication Order 08/04/2025 08/05/2025 08/06/2025 sodium chloride 0.9% (NS) flush 10 mL 10 mL, IntraVENous, Every 12 hours scheduled (2 times per day), First dose on Tue08/06/25 at 0900, Preprocedure 0900 (Canceled Entry - Provider: Automatic Discharge Provider - Comment: Automatically canceled at discontinue of medication order) PRN Medication Order 08/04/2025 08/05/2025 08/06/2025 sodium chloride 0.9 % infusion 5-250 mL/hr, IntraVENous, PRN, if patient receiving piggyback infusions and maintenance fluids are not ordered OR KVO fluids to protect IV site / prevent frequent line interruptions/ long duration, Starting on Tue08/06/25 at 0810, Preprocedure, For piggyback infusion, administer at same rate as piggyback for a total of 25 mL. Enter 25 mL into dose field and piggyback rate into rate field of order. If piggyback is infusing at a rate less than 100 mL/hr, enter 25 mL into dose field and 100 mL/hr into rate field of order. For KVO fluids, enter rate of 20 mL/hr or less into rate field of order. 0900 (New Bag - Prov ider: Tom Álvarez APRN - MANNY)0912 (Anesthesia Volume Adjustment - Provider: AKIRA Whitten CRNA) sodium chloride 0.9% (NS) flush 10 mL 10 mL, IntraVENous, PRN, line care, Starting on Tue08/06/25 at 0810, Preprocedure, After every IV line use Care Teams (unrecognized sec tion and content) Yarn Preparation Supervisor Relationship Specialty Start Date End Date No, Physician [facility] PCP - General 03/17/21 Yarn Preparation Supervisor Relationship Specialty Start Date End Date No, Physician [facility] PCP - General 03/17/21 Yarn Preparation Supervisor Relationship Specialty Start Date End Date Jose Barron MD [address] [place] [address] PCP - General Family Practice 11/19/13 Jose Dubose MD [address] [place] [address] Physician Gerontology 01/28/20 Jose Dubose MD [address] [place] [address] Gerontology 01/29/20 Yarn Preparation Supervisor Relationship Specialty Start Date End Date Jose Barron MD [address] [place] [address] PCP - General [facility] Practice 11/19/13 Jose Dubose MD [address] [place] [address] Physician Gerontology 01/28/20 Jose Dubose MD [address] [place] [address] Gerontology 01/29/20 Yarn Preparation Supervisor Relationship Specialty Start Date End Date Jose Barron MD [address] [place] [address] PCP - General Family Practice 11/19/13 Jose Dubose MD [address] [place] [address] Physician Gerontology 01/28/20 Jose Dubose MD [address] [place] [address] Gerontology 01/29/20 Yarn Preparation Supervisor Relationship Specialty Start Date End Date Jose Barron MD [address] [place] [address] PCP - General Family Practice 11/19/13 Jose Dubose MD [address] [place] [address] Physician Gerontology 01/28/20 Jose Dubose MD [address] [place] [address] Gerontology 01/29/20 Yarn Preparation Supervisor Relationship Specialty Start Date End Date Jose Barron MD [address] [place] [address] PCP - General Family Medicine 11/19/13 Jose Dubose MD [address] [place] [address] Physician Gerontology 01/28/20 Jose Dubose MD [address] [place] [address] Gerontology 01/29/20 Yarn Preparation Supervisor Relationship Specialty Start Date End Date Jose Barron MD [address] [place] [address] PCP - General Family Medicine 11/19/13 Jose Dubose MD [address] [place] [address] Physician Gerontology 01/28/20 Jose Dubose MD [address] [place] [address] Gerontology 01/29/20 Yarn Preparation Supervisor Relationship Specialty Start Date End Date Jose Barron MD [address] [place] [address] PCP - General Family Medicine 11/19/13 Jose Dubose MD [address] [place] [address] Physician Gerontology 01/28/20 Jose Dubose MD [address] [place] [address] Gerontology 01/29/20 Yarn Preparation Supervisor Relationship Specialty Start Date End Date Jose Barron MD [address] [place] [address] PCP - General Family Medicine 11/19/13 Jose Dubose MD [address] [place] [address] Physician Gerontology 01/28/20 Jose Dubose MD [address] [place] [address] Gerontology 01/29/20 Yarn Preparation Supervisor Relationship Specialty Start Date End Date [facility], Other [address] [place] [address] PCP - General 02/09/23 Yarn Preparation Supervisor Relationship Specialty Start Date End Date Jose Barron MD [address] [place] [address] PCP - General Family Medicine 11/19/13 Jose Dubose MD [address] [place] [address] Physician Gerontology 01/28/20 Jose Dubose MD [address] [place] [address] Gerontology 01/29/20 Yarn Preparation Supervisor Relationship Specialty Start Date End Date Jose Barron MD [address] [place] [address] PCP - General Family Medicine 11/19/13 Jose Dubose MD [address] [place] [address] Physician Gerontology 01/28/20 Jose Dubose MD [facility] [place] [address] Gerontology 01/29/20 Sol Hutchinson, customs appraiser Academic Support Director Internal Medicine 03/14/23 04/13/23 Yarn Preparation Supervisor Relationship Specialty Start Date End Date [facility], Other [address] [place] [address] PCP - General 02/09/23 Yarn Preparation Supervisor Relationship Specialty Start Date End Date Jose Barron MD [address] [place] [address] PCP - General Family Medicine 11/19/13 Jose Dubose MD [address] [place] [address] Physician Gerontology 01/28/20 Jose Dubose MD [address] [place] [address] Gerontology 01/29/20 Yarn Preparation Supervisor Relationship Specialty Start Date End Date Jose Barron MD [address] [place] [address] PCP - General Family Medicine 11/19/13 Jose Dubose MD [address] [place] [address] Physician Gerontology 01/28/20 Jose Dubose MD [address] [place] [address] Gerontology 01/29/20 Yarn Preparation Supervisor Relationship Specialty Start Date End Date [facility] [address] [place] [address] PCP - General 10/19/23 Yarn Preparation Supervisor Relationship Specialty Start Date [facility] [address] [place] [address] PCP - General 10/19/23 Yarn Preparation Supervisor Relationship Specialty Start Date End Date [facility] [address] [facility] [place] [address] PCP - General 10/19/23 [facility], DO [address] [place] [address] Surgeon General Surgery 11/07/23 Yarn Preparation Supervisor Relationship Specialty Start Date End Date [facility] [address] [place] [address] PCP - General 10/19/23 [facility], DO [address] [place] [address] Surgeon General Surgery 11/07/23 Yarn Preparation Supervisor Relationship Specialty Start Date End Date [facility] [address] [place] [address] PCP - General 10/19/23 [facility], [address] [place] [address] Surgeon General Surgery 11/07/23 Yarn Preparation Supervisor Relationship Specialty Start Date End Date [facility] [address] [place] [address] PCP - General 10/19/23 [facility], DO [address] [place] [address] Surgeon General Surgery 11/07/23 Yarn Preparation Supervisor Relationship Specialty Start Date End Date [facility] [address] [place] [address] PCP - General 10/19/23 [facility], DO [address] [place] [address] Surgeon General Surgery 11/07/23 Yarn Preparation Supervisor Relationship Specialty Start Date End Date [facility] [address] [place] [address] PCP - General 10/19/23 [facility], DO [address] [place] [address] Surgeon General Surgery 11/07/23 Yarn Preparation Supervisor Relationship Specialty Start Date End Date [facility] [address] [place] [address] PCP - General 10/19/23 MirandaSerafin, DO [address] [place] [address] Surgeon General Surgery 11/07/23 Yarn Preparation Supervisor Relationship Specialty Start Date End Date [facility] [address] [place] [address] PCP - General 10/19/23 Serafin Taylor, DO [address] [place] [address] Surgeon General Surgery 11/07/23 Yarn Preparation Supervisor Relationship Specialty Start Date End Date [facility] [address] [place] [address] PCP - General 10/19/23 JemimaSerafin gaytan, DO [address] [place] [address] Surgeon General Surgery 11/07/23 Yarn Preparation Supervisor Relationship Specialty Start Date End Date MirandaSerafin, DO [address] [place] [address] Surgeon General Surgery 11/07/23 Yarn Preparation Supervisor Relationship Specialty Start Date End Date MirandaSerafin, DO [address] [place] [address] Surgeon General Surgery 11/07/23 Yarn Preparation Supervisor Relationship Specialty Start Date End Date MirandaSerafin, DO [address] [place] [address] Surgeon General Surgery 11/07/23 Yarn Preparation Supervisor Relationship Specialty Start Date End Date Serafin Taylor, DO [address] [place] [address] Surgeon General Surgery 11/07/23 Yarn Preparation Supervisor Relationship Specialty Start Date End Date [facility] [address] [place] [address] PCP - General 10/19/23 12/01/23 [facility] [address] [facility] [place] [address] PCP - General 01/06/24 [facility], DO [address] [place] [address] Surgeon General Surgery 11/07/23 Yarn Preparation Supervisor Relationship Specialty Start Date End Date [facility] [address] [place] [address] PCP - General 10/19/23 12/01/23 [facility] [address] [facility] [place] [address] PCP - General 01/06/24 [facility], DO [address] [place] [address] Surgeon General Surgery 11/07/23 Yarn Preparation Supervisor Relationship Specialty Start Date End Date [facility] [address] [facility] [place] [address] PCP - General 01/06/24 [facility], DO [address] [place] [address] Surgeon General Surgery 11/07/23 Yarn Preparation Supervisor Relationship Specialty Start Date End Date [facility] [address] [place] [address] PCP - General 01/06/24 [facility] [address] [place] [address] Surgeon General Surgery 11/07/23 Yarn Preparation Supervisor Relationship Specialty Start Date End Date [facility] [address] [place] [address] PCP - General 01/06/24 [facility], [address] [place] [address] Surgeon General Surgery 11/07/23 Yarn Preparation Supervisor Relationship Specialty Start Date End Date [facility] [address] [place] [address] PCP - General 10/19/23 12/01/23 [facility] [address] [facility] [place] [address] PCP - General 01/06/24 [facility], [address] [place] [address] Surgeon General Surgery 11/07/23 Yarn Preparation Supervisor Relationship Specialty Start Date End Date [facility] [address] [facility] [place] [address] PCP - General 01/06/24 [facility], [address] [place] [address] Surgeon General Surgery 11/07/23 Yarn Preparation Supervisor Relationship Specialty Start Date End Date [facility] [address] [place] [address] PCP - General 01/06/24 [facility], [address] [place] [address] Surgeon General Surgery 11/07/23 Yarn Preparation Supervisor Relationship Specialty Start Date End Date [facility] [address] [place] [address] PCP - General 10/19/23 12/01/23 [facility] [address] [facility] [place] [address] PCP - General 01/06/24 [facility], DO [address] [place] [address] Surgeon General Surgery 11/07/23 Yarn Preparation Supervisor Relationship Specialty Start Date End Date [facility] [address] [place] [address] PCP - General 01/06/24 [facility] [address] [place] [address] Surgeon General Surgery 11/07/23 Yarn Preparation Supervisor Relationship Specialty Start Date End Date [facility] [address] [place] [address] PCP - General 01/06/24 [facility] [address] [place] [address] Surgeon General Surgery 11/07/23 Yarn Preparation Supervisor Relationship Specialty Start Date End Date [facility] [address] [place] [address] PCP - General 01/06/24 [facility] [address] [place] [address] Surgeon General Surgery 11/07/23 Yarn Preparation Supervisor Relationship Specialty Start Date End Date [facility] [address] [place] [address] PCP - General 01/06/24 [facility] [address] [place] [address] Surgeon General Surgery 11/07/23 Yarn Preparation Supervisor Relationship Specialty Start Date End Date [facility] [address] [place] [address] PCP - General 01/06/24 [facility] [address] [place] [address] Surgeon General Surgery 11/07/23 Yarn Preparation Supervisor Relationship Specialty Start Date End Date Nanci Diaz APRN.WIRE INSERTER [address] [place] [address] PCP - General Family Medicine 04/16/24 Jose Dubose MD [address] [place] [address] Physician Gerontology 01/28/20 Jose Dubose MD [address] [place] [address] Gerontology 01/29/20 Yarn Preparation Supervisor Relationship Specialty Start Date End Date , Nanci, CHEMICAL OPERATIONS SPECIALIST.WIRE INSERTER [address] [place] [facility] [address] [place] [address] PCP - General Family Medicine 04/16/24 Jose Dubose MD [address] [place] [address] Physician Gerontology 01/28/20 Jose Dubose MD [address] [place] [address] Gerontology 01/29/20 Yarn Preparation Supervisor Relationship Specialty Start Date End Date , Nanci, CHEMICAL OPERATIONS SPECIALIST.WIRE INSERTER [address] [place] [address] PCP - General Family Medicine 04/16/24 Jose Dubose MD [address] [place] [address] Physician Gerontology 01/28/20 Jose Dubose MD [address] [place] [address] Gerontology 01/29/20 Yarn Preparation Supervisor Relationship Specialty Start Date End Date , Nanci, CHEMICAL OPERATIONS SPECIALIST.WIRE INSERTER [address] [place] [address] PCP - General Family Medicine 04/16/24 Jose Dubose MD [address] [place] [address] Physician Gerontology 01/28/20 Jose Dubose MD [address] [place] [address] Gerontology 01/29/20 Yarn Preparation Supervisor Relationship Specialty Start Date End Date Nanci Diaz APRN.WIRE INSERTER [address] [place] [address] PCP - General Family Medicine 04/16/24 Jose Dubose MD [address] [place] [address] Physician Gerontology 01/28/20 Jose Dubose MD [address] [place] [address] Gerontology 01/29/20 Yarn Preparation Supervisor Relationship Specialty Start Date End Date Nanci Diaz APRN.WIRE INSERTER 1 [place] [address] PCP - General Family Medicine 04/16/24 Jose Dubose MD [address] [place] [address] Physician Gerontology 01/28/20 Jose Dubose MD [address] [place] [address] Gerontology 01/29/20 Yarn Preparation Supervisor Relationship Specialty Start Date End Date Markus Diaza, CHEMICAL OPERATIONS SPECIALIST.WIRE INSERTER 1 [place] [address] PCP - General Family Medicine 04/16/24 Jose Dubose MD [address] [place] [address] Physician Gerontology 01/28/20 Jose Dubose MD [address] [place] [address] Gerontology 01/29/20 Yarn Preparation Supervisor Relationship Specialty Start Date End Date [facility] [address] [place] [address] PCP - General 01/06/24 [facility], [address] [place] [address] Surgeon General Surgery 11/07/23 Yarn Preparation Supervisor Relationship Specialty Start Date End Date [facility] [address] [place] [address] PCP - General 01/06/24 [facility], [address] [place] [address] Surgeon General Surgery 11/07/23 Yarn Preparation Supervisor Relationship Specialty Start Date End Date [facility] [address] [place] [address] PCP - General 01/06/24 [facility], [address] [place] [address] Surgeon General Surgery 11/07/23 Yarn Preparation Supervisor Relationship Specialty Start Date End Date [facility] [address] [place] [address] PCP - General 01/06/24 [facility], [address] [place] [address] Surgeon General Surgery 11/07/23 Yarn Preparation Supervisor Relationship Specialty Start Date End Date [facility] [address] [place] [address] PCP - General 01/06/24 [facility] [address] [place] [address] Surgeon General Surgery 11/07/23 Yarn Preparation Supervisor Relationship Specialty Start Date End Date [facility] [address] [place] [address] PCP - General 01/06/24 [facility] [address] [place] [address] Surgeon General Surgery 11/07/23 Yarn Preparation Supervisor Relationship Specialty Start Date End Date [facility] [address] [place] [address] PCP - General 01/06/24 [facility] [address] [place] [address] Surgeon General Surgery 11/07/23 Yarn Preparation Supervisor Relationship Specialty Start Date End Date [facility] [address] [place] [address] PCP - General 01/06/24 [facility] [address] [place] [address] Surgeon General Surgery 11/07/23 Yarn Preparation Supervisor Relationship Specialty Start Date End Date Jose Barron MD [address] [facility] [place] [address] PCP - General Family Medicine 11/19/13 04/15/24 Jose Dubose MD [address] [place] [address] Physician Gerontology 01/28/20 Jose Dubose MD [address] [place] [address] Gerontology 01/29/20 Yarn Preparation Supervisor Relationship Specialty Start Date End Date AltagraciaNanci CHEMICAL OPERATIONS SPECIALIST.WIRE INSERTER [address] [place], [place] [id number] PCP - General Family Medicine 04/16/24 Jose Dubose MD [address] [place] [address] Physician Gerontology 01/28/20 Jose Dubose MD [address] [place] [address] Gerontology 01/29/20 Yarn Preparation Supervisor Relationship Specialty Start Date End Date Nanci, CHEMICAL OPERATIONS SPECIALIST.WIRE INSERTER [address] [place] [address] PCP - General Family Medicine 04/16/24 Jose Dubose MD [address] [place] [address] Physician Gerontology 01/28/20 Jose Dubose MD [address] [place] [address] Gerontology 01/29/20 Yarn Preparation Supervisor Relationship Specialty Start Date End Date Nanci Diaz CHEMICAL OPERATIONS SPECIALIST.WIRE INSERTER [address] [place], [place] [id number] PCP - General Family Medicine 04/16/24 Jose Dubose MD [address] [place] [address] Physician Gerontology 01/28/20 Jose Dubose MD [address] [place] [address] Gerontology 01/29/20 Yarn Preparation Supervisor Relationship Specialty Start Date End Date Serafin Taylor DO [address] [place] [address] Surgeon General Surgery 11/07/23 Yarn Preparation Supervisor Relationship Specialty Start Date End Date Nanci Diaz CHEMICAL OPERATIONS SPECIALIST.WIRE INSERTER [address] [place], [place] [phone] PCP - General Family Medicine 04/16/24 [place] [address] [place] [address] Physician Gerontology 01/28/20 Jose Dubose MD [address] [place] [address] Gerontology 01/29/20 Yarn Preparation Supervisor Relationship Specialty Start Date End Date Serafin Taylor DO [address] [place] [address] Surgeon General Surgery 11/07/23 Yarn Preparation Supervisor Relationship Specialty Start Date End Date Serafin Taylor DO [address] [place] [address] Surgeon General Surgery 11/07/23 Yarn Preparation Supervisor Relationship Specialty Start Date End Date Nanci Diaz CHEMICAL OPERATIONS SPECIALIST.WIRE INSERTER 1 [place], [place] [phone] PCP - General Family Medicine 04/16/24 Jose Dubose MD [address] [place] [address] Physician Gerontology 01/28/20 Jose Dubose MD [address] [facility] [place] [address] Gerontology 01/29/20 Yarn Preparation Supervisor Relationship Specialty Start Date End Date Jemimalucila Serafin [address] [facility] [address] [place] [address] Surgeon General Surgery 11/07/23 Yarn Preparation Supervisor Relationship Specialty Start Date End Date Miranda Serafin [address] [facility] [address] [place] [address] Surgeon General Surgery 11/07/23 Yarn Preparation Supervisor Relationship Specialty Start Date End Date Miranda Serafin [address] [facility] [address] [place] [address] Surgeon General Surgery 11/07/23 Yarn Preparation Supervisor Relationship Specialty Start Date End Date Miranda Serafin [address] [facility] [address] [place] [address] Surgeon General Surgery 11/07/23 Yarn Preparation Supervisor Relationship Specialty Start Date End Date Miranda Serafin [address] [place] [address] Surgeon General Surgery 11/07/23 Yarn Preparation Supervisor Relationship Specialty Start Date End Date Miranda Serafin DO [address] [place] [address] Surgeon General Surgery 11/07/23 Yarn Preparation Supervisor Relationship Specialty Start Date End Date Miranda Serafin DO [address] [place] [address] Surgeon General Surgery 11/07/23 Yarn Preparation Supervisor Relationship Specialty Start Date End Date Nanci Diaz APRN.WIRE INSERTER [address] [place], [place] [id number] PCP - General Family Medicine 04/16/24 Jose Dubose MD [address] [place] [address] Physician Gerontology 01/28/20 Jose Dubose MD [address] [place] [address] Gerontology 01/29/20 Otoniel Castellon MD [address] [place] [id number] Fabric Normalizer [facility] 09/13/24 Elif Alas MD [address] [place], [place] [id number] Fabric Normalizer [facility] 09/13/24 Yarn Preparation Supervisor Relationship Specialty Start Date End Date Nanci Diaz APRN.WIRE INSERTER [address] [place] [address] PCP - General Family Medicine 04/16/24 Jose Dubose MD [address] [place] [address] Physician Gerontology 01/28/20 Jose Dubose MD [address] [place] [address] Gerontology 01/29/20 Otoniel Castellon MD [address] [place] [id number] Fabric Normalizer Family Medicine 09/13/24 Elif Alas MD 1 [facility] [place] [address] Fabric Normalizer Family Medicine 09/13/24 Yarn Preparation Supervisor Relationship Specialty Start Date End Date JemimaSerafin gaytan DO [address] [facility] [address] [place] [address] Surgeon General Surgery 11/07/23 Yarn Preparation Supervisor Relationship Specialty Start Date End Date Jemimalucila Serafin DO [address] [facility] [address] [place] [address] Surgeon General Surgery 11/07/23 Yarn Preparation Supervisor Relationship Specialty Start Date End Date Miranda Serafin DO [address] [facility] [address] [place] [address] Surgeon General Surgery 11/07/23 Yarn Preparation Supervisor Relationship Specialty Start Date End Date Miranda Serafin DO [address] [facility] [address] [place] [address] Surgeon General Surgery 11/07/23 Yarn Preparation Supervisor Relationship Specialty Start Date End Date Miranda Serafin DO [address] [facility] [address] [place] [address] Surgeon General Surgery 11/07/23 Yarn Preparation Supervisor Relationship Specialty Start Date End Date Miranda Serafin DO [address] [facility] [address] [place] [address] Surgeon General Surgery 11/07/23 Yarn Preparation Supervisor Relationship Specialty Start Date End Date Miranda Serafin DO [address] [facility] [address] [place] [address] Surgeon General Surgery 11/07/23 Yarn Preparation Supervisor Relationship Specialty Start Date End Date Serafin Taylor DO [address] [place] [address] Surgeon General Surgery 11/07/23 Yarn Preparation Supervisor Relationship Specialty Start Date End Date Serafin Taylor DO [address] [place] [address] Surgeon General Surgery 11/07/23 Yarn Preparation Supervisor Relationship Specialty Start Date End Date Serafin Taylor DO [address] [place] [address] Surgeon General Surgery 11/07/23 Yarn Preparation Supervisor Relationship Specialty Start Date End Date Serafin Taylor DO [address] [facility] [address] [place] [address] Surgeon General Surgery 11/07/23 Yarn Preparation Supervisor Relationship Specialty Start Date End Date Nanci Diaz APRN.WIRE INSERTER 1 [place], [place] [phone] PCP - General Family Medicine 04/16/24 Jose Dubose MD [address] [place] [address] Physician Gerontology 01/28/20 Jose Dubose MD [address] [place] [address] Gerontology 01/29/20 Otoniel Castellon MD 1 [facility] [address] [place], [place] [id number] Fabric Normalizer Family Medicine 09/13/24 Elif Alas MD [address] [address] Fabric Normalizer Family Medicine 09/13/24 Yarn Preparation Supervisor Relationship Specialty Start Date End Date Serafin Taylor DO [address] [facility] [address] [place] [address] Surgeon General Surgery 11/07/23 Yarn Preparation Supervisor Relationship Specialty Start Date End Date Nanci Diaz APRN.WIRE INSERTER [address] [place] [phone] PCP - General Family Medicine 04/16/24 Jose Dubose MD [address] [place] [address] Physician Gerontology 01/28/20 Jose Dubose MD [address] [place] [address] Gerontology 01/29/20 Otoniel Castellon MD [address] [facility] [address] [place] [address] Fabric Normalizer Family Medicine 09/13/24 Elif Alas MD [address] [facility] [place] [address] Fabric Normalizer Family Medicine 09/13/24 Yarn Preparation Supervisor Relationship Specialty Start Date End Date Serafin Taylor DO [address] [facility] [address] [place] [address] Surgeon General Surgery 11/07/23 Yarn Preparation Supervisor Relationship Specialty Start Date End Date Serafin Taylor DO [address] [place], [place] [address] Surgeon General Surgery 11/07/23 Yarn Preparation Supervisor Relationship Specialty Start Date End Date Nanci Diaz APRN.WIRE INSERTER [address] [place] [facility] [place], [place] [phone] PCP - General Family Medicine 04/16/24 Jose Dubose MD [address] [place] [address] Physician Gerontology 01/28/20 Jose Dubose MD [address] [place] [place] [address] Gerontology 01/29/20 Otoniel Castellon MD [address] [phone] Fabric Normalizer [facility] 09/13/24 Elif Alas MD [address] [facility] [place], [place] [id number] Fabric Normalizer [facility] 09/13/24 Yarn Preparation Supervisor Relationship Specialty Start Date End Date Nanci Diaz APRN.WIRE INSERTER [address] [place] [address] PCP - General Family Medicine 04/16/24 Jose Dubose MD [address] [place] [address] Physician Gerontology 01/28/20 Jose Dubose MD [address] [place] [address] Gerontology 01/29/20 Otoniel Castellon MD [address] [place], [place] [id number] Fabric Normalizer Family Medicine 09/13/24 Elif Alas MD [address] [facility] [place] [id number] Fabric Normalizer Family Medicine 09/13/24 Yarn Preparation Supervisor Relationship Specialty Start Date End Date Nanci Diaz APRN.WIRE INSERTER [address] [facility] [place], [place] [phone] PCP - General Family Medicine 04/16/24 Jose Dubose MD [address] [place], [place] [address] Physician Gerontology 01/28/20 Jose Dubose MD [address] [place] [address] Gerontology 01/29/20 Otoniel Castellon MD [address] [facility] [address] [place], [place] [id number] Fabric Normalizer Family Medicine 09/13/24 Elif Alas MD [address] [facility] [address] [place] [id number] Fabric Normalizer Family Medicine 09/13/24 Yarn Preparation Supervisor Relationship Specialty Start Date End Date Serafin Taylor DO [address] [facility] [address] [place] [address] Surgeon General Surgery 11/07/23 Yarn Preparation Supervisor Relationship Specialty Start Date End Date Serafin Taylor DO [address] [facility] [address] [place] [address] Surgeon General Surgery 11/07/23 Yarn Preparation Supervisor Relationship Specialty Start Date End Date Serafin Taylor DO [address] [facility] [address] [place], [place] [id number] Surgeon General Surgery 11/07/23 Yarn Preparation Supervisor Relationship Specialty Start Date End Date Nanci Diaz APRN.WIRE INSERTER [address] [place], [place] [phone] PCP - General Family Medicine 04/16/24 Jose Dubose MD [address] [place] [address] Physician Gerontology 01/28/20 Jose Dubose MD [address] [place] [address] Gerontology 01/29/20 Otoniel Castellon MD [address] [place], [place] [id number] Fabric Normalizer Family Medicine 09/13/24 Elif Alas MD [address] [place], [place] [id number] Fabric Normalizer Family Medicine 09/13/24 Yarn Preparation Supervisor Relationship Specialty Start Date End Date Serafin Taylor DO [address] [facility] [address] [place] [address] Surgeon General Surgery 11/07/23 Yarn Preparation Supervisor Relationship Specialty Start Date End Date Nanci Diaz APRN.WIRE INSERTER [address] [place], [place] [phone] PCP - General Family Medicine 04/16/24 Jose Dubose MD [address] [place] [address] Physician Gerontology 01/28/20 Jose Dubose MD [address] [place] [address] Gerontology 01/29/20 Otoniel Castellon MD [address] [place], [place] [id number] Fabric Normalizer Family Medicine 09/13/24 Elif Alas MD [address] [place], [place] [phone] Fabric Normalizer Family Medicine 09/13/24 Yarn Preparation Supervisor Relationship Specialty Start Date End Date Nanci APRN.WIRE INSERTER [address] [place], [place] [phone] PCP - General Family Medicine 04/16/24 Jose Dubose MD [address] [place] [address] Physician Gerontology 01/28/20 Jose Dubose MD [address] [place] [address] Gerontology 01/29/20 Otoniel Castellon MD [address] [place], [place] [id number] Fabric Normalizer Family Medicine 09/13/24 Elif Alas MD [address] [place], [place] [id number] Fabric Normalizer Family Medicine 09/13/24 Yarn Preparation Supervisor Relationship Specialty Start Date End Date Serafin Taylor DO [address] [place] [address] Surgeon General Surgery 11/07/23 Yarn Preparation Supervisor Relationship Specialty Start Date End Date Serafin Taylor DO [address] [place] [address] Surgeon General Surgery 11/07/23 Yarn Preparation Supervisor Relationship Specialty Start Date End Date Serafin Taylor DO [address] [place] [address] Surgeon General Surgery 11/07/23 Source Comments (unrecognize d section and content) In the event this informatio n is protected by the Federal Confidentiality of Alcohol and Drug Abuse Patient Records regulations: The Federal rules restrict any use of the information to criminally investigate or prosecute any alcohol or drug abuse patient.[facility] the event this information is protected by the Federal Confidentiality of Alcohol and Drug Abuse Patient Records regulations: The Federal rules restrict any use of the information to criminally investigate or prosecute any alcohol or drug abuse patient.[facility] HospitalIn the event this information is protected by the Federal Confidentiality of Alcohol and Drug Abuse Patient Records regulations: The Federal rules restrict any use of the information to criminally investigate or prosecute any alcohol or drug abuse patient.[facility] HospitalIn the event this information is protected by the Federal Confidentiality of Alcohol and Drug Abuse Patient Records regulations: The Federal rules restrict any use of the information to criminally investigate or prosecute any alcohol or drug abuse patient.[facility] HospitalIn the event this information is protected by the Federal Confidentiality of Alcohol and Drug Abuse Patient Records regulations: The Federal rules restrict any use of the information to criminally investigate or prosecute any alcohol or drug abuse patient.[facility] HospitalIn the event this information is protected by the Federal Confidentiality of Alcohol and Drug Abuse Patient Records regulations: The Federal rules restrict any use of the information to criminally investigate or prosecute any alcohol or drug abuse patient.[facility] HospitalIn the event this information is protected by the Federal Confidentiality of Alcohol and Drug Abuse Patient Records regulations: The Federal rules restrict any use of the information to criminally investigate or prosecute any alcohol or drug abuse patient.[facility] HospitalIn the event this information is protected by the Federal Confidentiality of Alcohol and Drug Abuse Patient Records regulations: The Federal rules restrict any use of the information to criminally investigate or prosecute any alcohol or drug abuse patient.[facility] HospitalIn the event this information is protected by the Federal Confidentiality of Alcohol and Drug Abuse Patient Records regulations: The Federal rules restrict any use of the information to criminally investigate or prosecute any alcohol or drug abuse patient.[facility] HospitalIn the event this information is protected by the Federal Confidentiality of Alcohol and Drug Abuse Patient Records regulations: The Federal rules restrict any use of the information to criminally investigate or prosecute any alcohol or drug abuse patient.[facility] HospitalIn the event this information is protected by the Federal Confidentiality of Alcohol and Drug Abuse Patient Records regulations: The Federal rules restrict any use of the information to criminally investigate or prosecute any alcohol or drug abuse patient.[facility] HospitalIn the event this information is protected by the Federal Confidentiality of Alcohol and Drug Abuse Patient Records regulations: The Federal rules restrict any use of the information to criminally investigate or prosecute any alcohol or drug abuse patient.[facility] HospitalIn the event this information is protected by the Federal Confidentiality of Alcohol and Drug Abuse Patient Records regulations: The Federal rules restrict any use of the information to criminally investigate or prosecute any alcohol or drug abuse patient.[facility] HospitalIn the event this information is protected by the Federal Confidentiality of Alcohol and Drug Abuse Patient Records regulations: The Federal rules restrict any use of the information to criminally investigate or prosecute any alcohol or drug abuse patient.[facility] HospitalIn the event this information is protected by the Federal Confidentiality of Alcohol and Drug Abuse Patient Records regulations: The Federal rules restrict any use of the information to criminally investigate or prosecute any alcohol or drug abuse patient.[facility] HospitalIn the event this information is protected by the Federal Confidentiality of Alcohol and Drug Abuse Patient Records regulations: The Federal rules restrict any use of the information to criminally investigate or prosecute any alcohol or drug abuse patient.[facility] HospitalIn the event this information is protected by the Federal Confidentiality of Alcohol and Drug Abuse Patient Records regulations: The Federal rules restrict any use of the information to criminally investigate or prosecute any alcohol or drug abuse patient.[facility] HospitalIn the event this information is protected by the Federal Confidentiality of Alcohol and Drug Abuse Patient Records regulations: The Federal rules restrict any use of the information to criminally investigate or prosecute any alcohol or drug abuse patient.[facility] HospitalIn the event this information is protected by the Federal Confidentiality of Alcohol and Drug Abuse Patient Records regulations: The Federal rules restrict any use of the information to criminally investigate or prosecute any alcohol or drug abuse patient.[facility] HospitalIn the event this information is protected by the Federal Confidentiality of Alcohol and Drug Abuse Patient Records regulations: The Federal rules restrict any use of the information to criminally investigate or prosecute any alcohol or drug abuse patient.[facility] HospitalIn the event this information is protected by the Federal Confidentiality of Alcohol and Drug Abuse Patient Records regulations: The Federal rules restrict any use of the information to criminally investigate or prosecute any alcohol or drug abuse patient.[facility] HospitalIn the event this information is protected by the Federal Confidentiality of Alcohol and Drug Abuse Patient Records regulations: The Federal rules restrict any use of the information to criminally investigate or prosecute any alcohol or drug abuse patient.[facility] HospitalIn the event this information is protected by the Federal Confidentiality of Alcohol and Drug Abuse Patient Records regulations: The Federal rules restrict any use of the information to criminally investigate or prosecute any alcohol or drug abuse patient.[facility] HospitalIn the event this information is protected by the Federal Confidentiality of Alcohol and Drug Abuse Patient Records regulations: The Federal rules restrict any use of the information to criminally investigate or prosecute any alcohol or drug abuse patient.[facility] HospitalIn the event this information is protected by the Federal Confidentiality of Alcohol and Drug Abuse Patient Records regulations: The Federal rules restrict any use of the information to criminally investigate or prosecute any alcohol or drug abuse patient.[facility] HospitalIn the event this information is protected by the Federal Confidentiality of Alcohol and Drug Abuse Patient Records regulations: The Federal rules restrict any use of the information to criminally investigate or prosecute any alcohol or drug abuse patient.[facility] HospitalIn the event this information is protected by the Federal Confidentiality of Alcohol and Drug Abuse Patient Records regulations: The Federal rules restrict any use of the information to criminally investigate or prosecute any alcohol or drug abuse patient.[facility] HospitalIn the event this information is protected by the Federal Confidentiality of Alcohol and Drug Abuse Patient Records regulations: The Federal rules restrict any use of the information to criminally investigate or prosecute any alcohol or drug abuse patient.[facility] HospitalIn the event this information is protected by the Federal Confidentiality of Alcohol and Drug Abuse Patient Records regulations: The Federal rules restrict any use of the information to criminally investigate or prosecute any alcohol or drug abuse patient.[facility] HospitalIn the event this information is protected by the Federal Confidentiality of Alcohol and Drug Abuse Patient Records regulations: The Federal rules restrict any use of the information to criminally investigate or prosecute any alcohol or drug abuse patient.[facility] HospitalIn the event this information is protected by the Federal Confidentiality of Alcohol and Drug Abuse Patient Records regulations: The Federal rules restrict any use of the information to criminally investigate or prosecute any alcohol or drug abuse patient.[facility]In the event this information is protected by the Federal Confidentiality of Alcohol and Drug Abuse Patient Records regulations: The Federal rules restrict any use of the information to criminally investigate or prosecute any alcohol or drug abuse patient.[facility] HospitalIn the event this information is protected by the Federal Confidentiality of Alcohol and Drug Abuse Patient Records regulations: The Federal rules restrict any use of the information to criminally investigate or prosecute any alcohol or drug abuse patient.[facility] HospitalIn the event this information is protected by the Federal Confidentiality of Alcohol and Drug Abuse Patient Records regulations: The Federal rules restrict any use of the information to criminally investigate or prosecute any alcohol or drug abuse patient.[facility] HospitalIn the event this information is protected by the Federal Confidentiality of Alcohol and Drug Abuse Patient Records regulations: The Federal rules restrict any use of the information to criminally investigate or prosecute any alcohol or drug abuse patient.[facility] HospitalIn the event this information is protected by the Federal Confidentiality of Alcohol and Drug Abuse Patient Records regulations: The Federal rules restrict any use of the information to criminally investigate or prosecute any alcohol or drug abuse patient.[facility] HospitalIn the event this information is protected by the Federal Confidentiality of Alcohol and Drug Abuse Patient Records regulations: The Federal rules restrict any use of the information to criminally investigate or prosecute any alcohol or drug abuse patient.[facility] HospitalIn the event this information is protected by the Federal Confidentiality of Alcohol and Drug Abuse Patient Records regulations: The Federal rules restrict any use of the information to criminally investigate or prosecute any alcohol or drug abuse patient.[facility] HospitalIn the event this information is protected by the Federal Confidentiality of Alcohol and Drug Abuse Patient Records regulations: The Federal rules restrict any use of the information to criminally investigate or prosecute any alcohol or drug abuse patient.[facility] HospitalIn the event this information is protected by the Federal Confidentiality of Alcohol and Drug Abuse Patient Records regulations: The Federal rules restrict any use of the information to criminally investigate or prosecute any alcohol or drug abuse patient.[facility] HospitalIn the event this information is protected by the Federal Confidentiality of Alcohol and Drug Abuse Patient Records regulations: The Federal rules restrict any use of the information to criminally investigate or prosecute any alcohol or drug abuse patient.[facility] HospitalIn the event this information is protected by the Federal Confidentiality of Alcohol and Drug Abuse Patient Records regulations: The Federal rules restrict any use of the information to criminally investigate or prosecute any alcohol or drug abuse patient.[facility] HospitalIn the event this information is protected by the Federal Confidentiality of Alcohol and Drug Abuse Patient Records regulations: The Federal rules restrict any use of the information to criminally investigate or prosecute any alcohol or drug abuse patient.[facility] HospitalIn the event this information is protected by the Federal Confidentiality of Alcohol and Drug Abuse Patient Records regulations: The Federal rules restrict any use of the information to criminally investigate or prosecute any alcohol or drug abuse patient.[facility] HospitalIn the event this information is protected by the Federal Confidentiality of Alcohol and Drug Abuse Patient Records regulations: The Federal rules restrict any use of the information to criminally investigate or prosecute any alcohol or drug abuse patient.[facility] HospitalIn the event this information is protected by the Federal Confidentiality of Alcohol and Drug Abuse Patient Records regulations: The Federal rules restrict any use of the information to criminally investigate or prosecute any alcohol or drug abuse patient.[facility] HospitalIn the event this information is protected by the Federal Confidentiality of Alcohol and Drug Abuse Patient Records regulations: The Federal rules restrict any use of the information to criminally investigate or prosecute any alcohol or drug abuse patient.[facility] HospitalIn the event this information is protected by the Federal Confidentiality of Alcohol and Drug Abuse Patient Records regulations: The Federal rules restrict any use of the information to criminally investigate or prosecute any alcohol or drug abuse patient.[facility] HospitalIn the event this information is protected by the Federal Confidentiality of Alcohol and Drug Abuse Patient Records regulations: The Federal rules restrict any use of the information to criminally investigate or prosecute any alcohol or drug abuse patient.[facility] Goals (unrecognized section and content) Goals may be documented in a n alternate sectionGoals may be documented in an alternate sectionGoals may be documented in an alternate section No data available for this section <item> Privacy Markings (unrecogniz ed section and content) Section Author: Arianna Garcia PROHIBITION ON REDISCLOSURE OF CONFIDENTIAL INFORMATION This notice accompanies a disclosure of information concerning a client made to you with the consent of such client. FOR RECORDS PERTAINING TO PATIENTS WHO ARE OR HAVE BEEN ENROLLED IN A CHEMICAL DEPENDENCY/SUBSTANCEABUSE PROGRAM, SOME INFORMATION MAY BE OMITTED. This clinical summary was aggregated from multiple sources. Caution should be exercised in using it in the provision of clinical care. This summary normalizes information from multiple sources, and as a consequence, information in this document may materially change the coding, format and clinical context of patient data. In addition, data may be omitted in some cases. CLINICAL DECISIONS SHOULD BE BASED ON THE PRIMARY CLINICAL RECORDS. [employer] [facility]. provides no warranty or guarantee of the accuracy or completeness of information in this document.
[2025-09-11 06:59] LABS: AST(SGOT) 25 U/L (<=31); Alanine Aminotransfer ALT/SGPT 27 U/L (<=34); Albumin, Serum 3.9 g/dL (3.5-5.0); Alkaline Phosphatase 42 U/L (35-104); Anion Gap 10 (5-15); BUN 13 mg/dL (4-19); BUN/Creat Ratio 26.3 RATIO (10-20); Bilirubin, Direct < 0.08 mg/dL (0.00-0.30); Calcium,Total 8.7 mg/dL (7.6-11.0); Carbon Dioxide 21.2 mmol/L (21.0-32.0); Chloride 103 mmol/L (98-108); Estimated Creatinine Clearance 182.43 ml/min (50-250); Globulin 2.3 g/dL (2.2-4.2); Glucose 107 mg/dL (70-99); Potassium 4.9 mmol/L (3.3-5.1)
[2025-09-11 07:06] VITALS: RESP 18; O2SAT 98
[2025-09-11 07:36] VITALS: BP 132/83; PULSE 68; RESP 16; TEMP 36.6; O2SAT 99
== END 2025-09-11 07:37 | disposition home or self-care (01) ==
PROVIDERS: Emergency Provider Emergency Medicine; Visit Provider Emergency Medicine
DX: K29.70 Gastritis, unspecified, without bleeding (principal); R10.9 Unspecified abdominal pain; R11.2 Nausea with vomiting, unspecified; F41.9 Anxiety disorder, unspecified; F32.A Depression, unspecified; G47.33 Obstructive sleep apnea (adult) (pediatric); Z90.49 Acquired absence of other specified parts of digestive tract; Z79.899 Other long term (current) drug therapy; Z87.891 Personal history of nicotine dependence
CPT/HCPCS: 74177; 80048; 80076; 83605; 83690; 85025; 96361; 96374; 96375; 99282; Q9967; A4216